=== PATIENT | female | born 1960 | race Caucasian/White ===

== ENCOUNTER 2023-08-01 12:07 | Outpatient (REF) | payer BC, SELFPAY ==
[2023-08-01 13:57] LABS: SARS-CoV-2 Ag NEGATIVE (NEGATIVE)
[2023-08-01 15:14] LABS: SARS-CoV-2 NAA DETECTED (NOT DETECTE)
== END 2023-08-01 12:08 | disposition home or self-care (01) ==
LOC: LAB 12:07
PROVIDERS: PCP Internal Medicine; Visit Provider Internal Medicine
DX: Z20.822 Contact with and (suspected) exposure to COVID-19 (principal)
CPT/HCPCS: 87635; 87811; U0003

== ENCOUNTER 2023-09-15 07:21 | Outpatient (OUT) | payer BC, SELFPAY ==
[2023-09-15 07:47] LABS: Basophils Percent Auto 0.9 % (0.2-2.0); Eosinophils Absolute Auto 0.2 10^3/uL (0.0-0.7); Eosinophils Percent Auto 7.4 % (0.9-7.0); Hematocrit 35.3 % (36.0-48.0); Hemoglobin 10.1 g/dL (12.0-16.0); Immature Granulocytes Abs Auto 0.01 10^3/uL (0.00-0.03); Immature Granulocytes Pct Auto 0.3 % (0.0-0.5); Lymphocytes Absolute Auto 1.1 10^3/uL (1.2-3.8); Lymphocytes Percent Auto 33.1 % (20.5-60.0); Mean Corpuscular HGB Conc 28.6 g/dL (29.9-35.2); Mean Corpuscular Volume 73.4 fL (81.0-99.0); Mean Platelet Volume 9.6 fL (9.5-13.5); Monocytes Absolute Auto 0.4 10^3/uL (0.3-0.8); Monocytes Percent Auto 12.9 % (1.7-12.0); Neutrophils Absolute Auto 1.5 10^3/uL (1.4-6.5); Neutrophils Percent Auto 45.4 % (43.0-75.0); Platelet Count 311 10^3/uL (150-450); Red Blood Count 4.81 10^6/uL (4.20-5.40); White Blood Count 3.3 10^3/uL (4.0-11.0)
[2023-09-15 08:00] LABS: Estimated Average Glucose 123 mg/dL; Glycohemoglobin A1C 5.9 % (4.5-6.2)
[2023-09-15 08:24] LABS: Percent Iron Saturation 4.6 %
[2023-09-15 08:32] LABS: Alanine Aminotransferase 100 U/L (14-59); Albumin Globulin Ratio 0.9; Albumin Level 3.1 g/dL (3.4-5.0); Alkaline Phosphatase 246 U/L (46-116); Anion Gap 10.4; Aspartate Amino Transferase 62 U/L (15-37); BUN Creatinine Ratio 19.4; Bilirubin Total 0.2 mg/dL (0.2-1.0); Calcium 9.1 mg/dL (8.5-10.1); Carbon Dioxide 29.8 mmol/L (21.0-32.0); Chloride 106 mmol/L (98-107); Chol HDL Ratio 2.5; Cholesterol 170 mg/dL (<=200); Estimated GFR (African America >60 (>=60); Estimated GFR (Non-African Ame >60 (>=60); Globulin 3.6 g/dL; Glucose 128 mg/dL (74-106); HDL Cholesterol 68 mg/dL (40-60); Potassium 4.2 mmol/L (3.5-5.1); Sodium 142 mmol/L (136-145); Thyroid Stimulating Hormone <0.007 uIU/mL (0.358-3.740); Total Protein 6.7 g/dL (6.4-8.2); Triglycerides 36 mg/dL (<=150); VLDL CHOLESTEROL 7.2 mg/dL
[2023-09-16 14:04] LABS: Free T4 1.91 ng/dL (0.76-1.46)
[2023-09-17 11:10] LABS: Triiodothyronine (T3) 239 ng/dL (71-180)
== END 2023-09-15 07:22 | disposition home or self-care (01) ==
LOC: LAB 07:21
PROVIDERS: PCP Internal Medicine; Visit Provider Internal Medicine
DX: Z00.00 Encounter for general adult medical examination without abnormal findings (principal); D50.0 Iron deficiency anemia secondary to blood loss (chronic); R79.89 Other specified abnormal findings of blood chemistry
CPT/HCPCS: 36415; 80053; 80061; 82728; 83036; 83540; 83550; 84439; 84443; 84480; 85025

== ENCOUNTER 2023-10-16 07:27 | Outpatient (RCR) | payer BC, SELFPAY ==
[2023-10-14 16:33] LABS: Lactate Dehydrogenase 236 U/L (81-234)
[2023-10-16] MEDS: FERUMOXYTOL 510 MG in 0.9 % SODIUM CHLORIDE 100 ML 351 MG IV (08:28)
[2023-10-16 08:34] VITALS: BP 158/88; PULSE 91; RESP 16; TEMP 36.6; O2SAT 96
--- NOTE | 2023-10-16 08:37 | PC.NURSE ---
0805: Pt. to [facility] for scheduled infusion. Seated in recliner. VSS. Denies c/o n/v, pain or dyspnea. #22 gauge IV initiated to right hand on first attempt without difficulty. Flushes easily with no edema or c/o pain. Pt. drinking water. Denies needs. 0828:IV Feraheme initiated at this time. Pt. without c/o.
--- NOTE | 2023-10-16 08:57 | PC.NURSE ---
0850: Rosalba completed without s&s of adverse reaction. IV d/c'd, pressure to site. 0853: D/c'd amb. to home.
[2023-10-16 14:09] LABS: ANA Direct Negative (Negative)
[2023-10-17 07:08] LABS: Immunoglobulin A, Qn, Serum 86 mg/dL (87-352); Immunoglobulin G, Qn, Serum 950 mg/dL (586-1602); Immunoglobulin M, Qn, Serum 171 mg/dL (26-217)
== END 2023-10-16 23:59 | disposition home or self-care (01) ==
LOC: INF 07:27
PROVIDERS: PCP Internal Medicine; Visit Provider Internal Medicine Hematology & Oncology
DX: D72.819 Decreased white blood cell count, unspecified (principal); D50.9 Iron deficiency anemia, unspecified; K90.9 Intestinal malabsorption, unspecified; D64.9 Anemia, unspecified
CPT/HCPCS: 36415; 83615; 86038; 96365; G0463; Q0138

== ENCOUNTER 2023-10-23 07:34 | Outpatient (RCR) | payer BC, SELFPAY ==
[2023-10-23 08:14] VITALS: BP 174/91; PULSE 88; RESP 16; TEMP 36.4; O2SAT 96
--- NOTE | 2023-10-23 08:17 | PC.NURSE ---
0800: Pt. to [facility] amb. for iron infusion. Seated in recliner. VSS. #24 gauge IV initiated to right hand on first attempt. Flushes easily without redness or edema. Pt. tolerated without c/o. Water provided. Denies needs.
[2023-10-23] MEDS: FERUMOXYTOL 510 MG in 0.9 % SODIUM CHLORIDE 100 ML 351 MG IV (08:19)
--- NOTE | 2023-10-23 08:28 | PC.NURSE ---
0819: IV Rosalba initiated at this time. Given snack. Denies needs.
--- NOTE | 2023-10-23 08:47 | PC.NURSE ---
0845: IV Feraheme completed without s&s of adverse reaction. IV d/c'd pressure to site. D/c'd amb to home.
== END 2023-11-05 11:15 | disposition home or self-care (01) ==
LOC: INF 07:34
PROVIDERS: PCP Internal Medicine; Visit Provider Internal Medicine Hematology & Oncology
DX: D72.819 Decreased white blood cell count, unspecified (principal); D64.9 Anemia, unspecified; D50.9 Iron deficiency anemia, unspecified; K90.9 Intestinal malabsorption, unspecified
CPT/HCPCS: 96365; Q0138

== ENCOUNTER 2023-12-16 10:32 | Outpatient (OUT) | payer BC, SELFPAY ==
--- OUTSIDE RECORDS SUMMARY | 2023-12-16 10:37 | XMS_ITS | CCD ---
Author Name Unknown Address [address] [place] [address] Organization [facility] Care Team Providers Care Logistics System Engineer Name Role Phone Roland Serrano DO Primary Care Provider ROLAND SERRANO Primary Care Unavailable MAYRA MICHEL Attending Unavailable ROLAND SERRANO Primary Care Unavailable ROBBY CANALES Attending Unavailable Roland Serrano DO Primary Care Provider Nilesh RN, Kizzy Unavailable Unavailable Roland Serrano DO Primary Care Provider Nilesh RN, Kizzy Unavailable Roland Serrano DO Primary Care Provider Nilesh RN, Kizzy Unavailable Roland Serrano Unavailable Olya Gann Unavailable MAGGIE, DR YOUSSEF Primary Care Unavailable MAGGIE, DR YOUSSEF Admitting Unavailable MAGGIE, DR YOUSSEF Attending Unavailable BALL, DR YOUSSEF Consulting Unavailable SALOMON JACOME Attending Unavailable MAGGIE, DR YOUSSEF Primary Care Unavailable SALOMON JACOME Consulting Unavailable SALOMON JACOME Admitting Unavailable MAGGIE, DR YOUSSEF Primary Care Unavailable AYAZ, SALOMON Attending Unavailable AYAZ, SALOMON Consulting Unavailable SALOMON JACOME Admitting Unavailable MAGGIE, DR YOUSSEF Primary Care Unavailable MAGGIE, DR YOUSSEF Admitting Unavailable MAGGIE, DR YOUSSEF Attending Unavailable BALL, DR YOUSSEF Consulting Unavailable ZIEBER, DR HENRY Lr Consulting Unavailable SALOMON JACOME Attending Unavailable MAGGIE, DR YOUSSEF Primary Care Unavailable AYAZ, SALOMON Consulting Unavailable SALOMON JACOME Admitting Unavailable MAGGIE, DR YOUSSEF Admitting Unavailable BALL, DR YOUSSEF Attending Unavailable BALL, DR YOUSSEF Consulting Unavailable BALL, DR YOUSSEF Primary Care Unavailable MAGGIE, DR YOUSSEF Primary Care Unavailable MAGGIE, DR YOUSSEF Admitting Unavailable BALL, DR YOUSSEF Attending Unavailable BALL, DR YOUSSEF Consulting Unavailable WEST, DR JACOB Parrish Consulting Unavailable Nilesh RN, Kizzy Unavailable BALL, ROLAND E Primary Care Unavailable LESSA CISNEROS JAY, MIKE Referring Unava ilable FELTER LEIGH Philippe Attending Unavailable BALL, ROLAND E Primary Care Unavailable CARY, SOUTH Philippe Attending Unavailable BALL, ROLAND E Primary Care Unavailable BALL, ROLAND E Primary Care Unavailable CARY, SOUTH Philippe Referring Unavailable BALL, ROLAND E Primary Care Unavailable BALL, ROLAND E Primary Care Unavailable LESSA CISNEROS JAY, MIKE Referring Unava ilable BALL, ROLAND E Primary Care Unavailable CARY, SOUTH Philippe Referring Unavailable ANGELIAELDER BARAJAS Attending Unavailable BALL, ROLAND E Primary Care Unavailable CARY, SOUTH Philippe Referring Unavailable BALL, ROLAND E Primary Care Unavailable RACHELHENRY Attending Unavailable BALL, ROLAND E Primary Care Unavailable LAMBGURPREET ESTRADA Referring Unavailable CARY, SOUTH Philippe Attending Unavailable BALL, ROLAND E Primary Care Unavailable PEDRO RODARTE Referring Unavailable BALL, ROLAND E Primary Care Unavailable CARY, SOUTH Philippe Attending Unavailable CARY, SOUTH Philippe Admitting Unavailable BALL, ROLAND E Primary Care Unavailable LESSA CISNEROS JAY, MIKE Referring Unava ilable BALL, ROLAND E Primary Care Unavailable LESSA CISNEROS JAY, MIKE Referring Unava ilable BALL, ROLAND E Primary Care Unavailable LESSA CSINEROS JAY, MIKE Referring Unava ilable BALL, ROLAND E Primary Care Unavailable HEIDI MENARD Attending Unavailab le BALL, ROLAND E Primary Care Unavailable BALL, ROLAND E Primary Care Unavailable CARY, SOUTH Philippe Referring Unavailable BALL, ROLAND E Primary Care Unavailable RACHELHENRY Lr Referring Unavailable BALL, ROLAND E Primary Care Unavailable MODERNESTO DIAZ Referring Unavailable JUAN MANUEL MEDINA Attending Unavailable BALL, ROLAND E Primary Care Unavailable SASIDSARAH MACDONALDHEIDI Attending Unavailab le Allergies Allergy Classification Reported Allergen(s) Allergy Type Date of Onset Reaction(s) Facility (6 sources) patient allergy list reviewed by nurse or physicia Propensity to adverse reactions 8 Comment:Done [facility] Other (6 sources) Allergies Reconciled Propensity to adverse reactions Unknown [facility] Other Medications Current Medications Medication Drug Class(es) Dates Sig (Normalized) Sig (Original) acetaminophen 325 mg / HYDROcodone bitartrate 5 mg oral tablet (8 sources) Opioid Agonist take 1-2 tablets by mouth every six hours as needed HYDROcodone-Aceta minophen 5-325 MG 1-2 tablet as needed Oral every 6 hrs for 7 days Active [id number] 200 actuat albuterol 0.09 mg/actuat metered dose inhaler (20 sources) beta2-Adrenergic Agonist Start: 04-23-2023 take 2 puff(s) by inhalation every four hours as needed for cough Albuterol Sulfate HFA 108 (90 Base) MCG/ACT 2 puffs Inhalation every 4 hrs as needed for cough or SOB for 30 days Apr, Active Start: 04-23-2023 take 2 puff(s) by in halation every four hours as needed for cough albuterol HFA (PROVENTIL HFA, VENTOLIN HFA) 90 mcg/actuation inhaler INHALE 2 PUFFS EVERY 4 HOURS NEEDED FOR COUGH OR SHORTNESS OF BREATH FOR 30 DAYS 06/17/2023 Active Start: 01-20-2023 take 2 puff(s) by in halation every six hours as needed for cough Albuterol Sulfate HFA 108 (90 Base) MCG/ACT 2 puffs Inhalation every 6 hours as needed for cough and SOB for 30 days Jan, Active Start: 01-20-2023 take 2 puff(s) by in halation every four hours as needed Albuterol Sulfate HFA 108 (90 Base) MCG/ACT 2 puffs as needed Inhalation every 4 hrs Jan, Active Comment on above: INHALE 2 PUFFS EVERY 4 HOURS NEEDED FOR COUGH OR SHORTNESS OF BREATH FOR 30 DAYS amoxicillin 500 mg oral capsule (9 sources) Penicillin-class Antibacterial Start: 05-13-20 take 4 capsules by mouth every hour Amoxicillin 500 MG 4 capsules Orally 1 hour prior to dental appt for 1 day Apr, Active Start: 01-20-2023 take 1 tablet by corinne th every twelve hours Amoxicillin 875 MG 1 tablet Orally every 12 hrs for 7 days Jan, Active azithromycin 250 mg oral tablet (20 sources) Macrolide Antimicrobial Start: 08-04-2023 Azithromycin 250 MG as directed Orally daily for 5 days Jul, Active Start: 01-24-2023 Azithromycin 2 50 MG as directed Orally daily for 5 days Jan, Active Calcium (20 sources) Phosphate Binder, Calcium Start: 08-14-2018 Calcium 1 tab Oral Jul, Active diclofenac sodium 0.01 mg/mg topical gel (10 sources) Nonsteroidal Anti-inflammatory Drug Start: 08-11-2020 Voltaren 1 % as directed Transdermal BID for 30 days Jul, Active dicyclomine hydrochloride 10 mg oral capsule (20 sources) Anticholinergic Start: 07-10-2021 take 1 capsule by mouth at bedtime as needed Dicyclomine HCl 10 MG 1 capsule Orally before meals and HS, as needed for 30 days May, Active take 1 capsule by mo uth four times daily before mealtime dicyclomine (BENTYL) 10 MG capsule Take 10 mg by mouth 4 times daily (before meals and nightly) 0 Active Comment on above: Take 1 capsule by mo uth before meals and at bedtime. As needed. Estradiol-Norethindr one Acet 0.05-0.14 MG/DAY (10 sources) Start: 018 apply 0.05-0.14 mg transdermal route once daily Estradiol-Norethin drone Acet 0.05-0.14 MG/DAY 1 patch to skin Transdermal Two times a Week Jul, Active Estroven (10 sources) Start: 018 Estroven Jul, Active fluticasone propionate 0.05 mg/actuat metered dose nasal spray (8 sources) Corticosteroid Start: take 1 spray(s) nasal route once daily Fluticasone Propionate 50 MCG/ACT 1 spray in each nostril Nasally Once a day for 21 days Jan, Active 60 actuat fluticasone propionate 0.25 mg/actuat / salmeterol 0.05 mg/actuat dry powder inhaler (20 sources) Corticosteroid, beta2-Adrenergic Agonist Start: 023 take 1 puff(s) by inhalation twice daily Fluticasone-Salmet adriana 250-50 MCG/ACT 1 puff Inhalation Twice a day March, Active Comment on above: INHALE 1 PUFF TWICE A DAY FOR 30 DAYS formaldehyde 370 mg/ml topical solution (1 source) Standardized Chemical Allergen Start: 023 End: 023 formaldehyde, bulk, 37 % soln 240 mL as directed for 1 day. 240 mL 0 09/02/2023 09/03/2023 Active Comment on above: 240 mL as directed f or 1 day. ibuprofen 800 mg oral tablet (20 sources) Nonsteroidal Anti-inflammatory Drug Start: take 1 tablet by mouth three times daily at mealtime as needed Ibuprofen 800 MG 1 tablet with food or milk as needed Orally Three times a day for 30 days Jul, Active Start: 08-11-2020 ibuprofen (MOT RIN) 800 mg tablet Take by mouth q 8 HR. 0 08/11/2020 Active Comment on above: Take by mouth q 8 HR . lidocaine 0.05 mg/mg medicated patch (10 sources) Antiarrhythmic, Amide Local Anesthetic Start: 2019 Lidocaine 5 % 1 patch remove after 12 hours Externally Once a day Jul, Active meloxicam 15 mg oral tablet (1 source) Nonsteroidal Anti-inflammatory Drug Start: 2020 take 1 tablet by mouth once daily meloxicam (MOBIC) 15 MG tablet Take 1 tablet by mouth daily 0 06/13/2021 Active methIMAzole 10 mg oral tablet (8 sources) Thyroid Hormone Synthesis Inhibitor take 1 tablet by mouth every twenty-four hours methIMAzole 10 MG 1 tablet Orally Once a day Active methylPREDNISolone 4 mg oral tablet (8 sources) Corticosteroid Start: 2022 methylPREDNISolone 4 MG as directed Orally Once a day for 6 days Jan, Active Multivitamin Adult - (20 sources) Start: 2017 Multivitamin Adult - Orally Jul, Active mupirocin 0.02 mg/mg topical ointment (6 sources) RNA Synthetase Inhibitor Antibacterial Start: 2022 Mupirocin 2 % 1 application Externally Twice a day for 10 days Feb, Active ondansetron 8 mg oral tablet (1 source) Serotonin-3 Receptor Antagonist Start: 2020 ondansetron (ZOFRAN) 8 MG tablet Take 8 mg by mouth 0 06/21/2021 Active perflutren lipid microspheres 1.3 mL in NaCl (PF) 0.9% 10 mL injection (DEFINITY) (15 sources) Start: 2022 End: 2023 perflutren lipid microspheres 1.3 mL in NaCl (PF) 0.9% 10 mL injection (DEFINITY) Probiotic - (20 sources) Start: 2017 Probiotic - Orally Jul, Active 125 ml sodium chloride 9 mg/ml prefilled syringe (16 sources) Start: 2022 End: 2023 sodium chloride 0.9 % (flush) 10 mL (BD POSIFLUSH) Start: 07-07-2021 End: 07-07-2021 0.9 % sodium chloride bolus sucralfate enema 4 g/40 mL (CPD) (2 sources) Start: 07-04-2023 End: 07-18-2023 sucralfate enema 4 g/40 mL (CPD) 20 mL by RECTAL route twice daily for 14 days. 560 mL 0 07/04/2023 07/18/2023 Active Comment on above: 20 mL by RECTAL rout e twice daily for 14 days. tiZANidine 4 mg oral tablet (1 source) Central alpha-2 Adrenergic Agonist Start: 06-13-2021 take 1 tablet by mouth at bedtime as needed tiZANidine (ZANAFLEX) 4 MG tablet Take 1 tablet by mouth At bedtime as needed 0 06/13/2021 Active 24 hr venlafaxine 150 mg extended release oral capsule (20 sources) Serotonin and Norepinephrine Reuptake Inhibitor Start: 06-23-2019 take 1 capsule by mouth every twenty-four hours Venlafaxine HCl ER 150 MG 1 capsule with food Orally Once a day Jun, Active take 1 tablet by mouth once venl afaxine (EFFEXOR) 25 MG tablet Take 25 mg by mouth once 0 Active Comment on above: Take 150 mg by mouth daily at bedtime. Vitamin B Complex (20 sources) Start: 08-14-2018 Vitamin B Comp hayley - Orally Jul, Active Completed/Discontinued Medications Medication Drug Class(es) Dates Sig (Normalized) Sig (Original) acetaminophen 500 mg oral tablet (2 sources) Start: 09-02-2023 take 500-1000 mg by mouth every six hours as needed acetaminophen (TYLENOL) 500 mg tablet Take 1-2 tablets by mouth every 6 hours as needed for pain. Do not exceed 3-4g/24hr. 0 09/02/2023 Active Comment on above: Take 1-2 tablets by mouth every 6 hours as needed for pain. Do not exceed 3-4g/24hr. ascorbic acid 500 mg oral tablet (20 sources) Vitamin C take 1 tablet by mouth once daily ascorbic acid, vitamin C, (VITAMIN C) 500 mg tablet Take 500 mg by mouth once daily. 0 Active Comment on above: Take 500 mg by mouth once daily. B COMPLEX VITAMINS CAP (20 sources) Start: 03-31-2008 B COMPLEX VITAMINS CAP Take one(1) capsule daily. 0 03/31/2008 Active Comment on above: Take one(1) capsule daily. CALCIUM CARBONATE-VIT D3-MINERALS 600 MG-400 UNIT TAB (20 sources) Start: 07-28-2019 take 1 tablet by mouth twice daily CALCIUM CARBONATE-VIT D3-MINERALS 600 MG-400 UNIT TAB Take 1 tablet by mouth two times a day. 0 07/28/2019 Active Start: 07-28-2019 take 1 tablet by corinne th twice daily CALCIUM CARBONATE-VIT D3-MINERALS 600 MG-400 UNIT TAB Take 1 tablet by mouth twice daily. 0 07/28/2019 Active Comment on above: Take 1 tablet by corinne th twice daily. Take 1 tablet by corinne th two times a day. carvedilol 25 mg oral tablet (20 sources) alpha-Adrenergic Alisa, beta-Adrenergic Alisa Start: 06-07-20 take 1 tablet by mouth twice daily carvedilol (COREG) 25 mg tablet Take 1 tablet by mouth twice daily. 0 06/07/2021 Active Comment on above: Take 1 tablet by corinne th twice daily. enteric contrast (will be provided with radiology test) (20 sources) Start: 05-29-20 enteric contrast (will be provided with radiology test) For CT CHESTABD/PEL W IVCON Routine order Administer, As Directed One Time Only, via Oral, Rectal, both Oral and Rectal, Enteric Tube, Stoma or Indwelling Catheter, Enteric Contrast as designated per enteric contrast guidelines 1 Each 0 05/29/2021 Active Comment on above: For CT CHESTABD/PEL W IVCON Routine order Administer, As Directed One Time Only, via Oral, Rectal, both Oral and Rectal, Enteric Tube, Stoma or Indwelling Catheter, Enteric Contrast as designated per enteric contrast guidelines iv contrast (will be provided with radiology test) (20 sources) Start: 05-29-20 iv contrast (will be provided with radiology test) CT Chest ABD/PEL-Inject, intravenously, once for 1 dose.No IV access, insert saline lock prior to the beginning of sedation, infusion, injection of imaging exam. Discontinue saline lock post exam. If Pt. has a central line or IVAD, may access for administration according to line specific nursing protocol. Once exam is complete flush line and de-access according to line specific nursing protocol in the CT contrast administration guidelines link. 1 Each 0 05/29/2021 Active Comment on above: CT Chest ABD/PEL-Inj ect, intravenously, once for 1 dose.No IV access, insert saline lock prior to the beginning of sedation, infusion, injection of imaging exam. Discontinue saline lock post exam. If Pt. has a central line or IVAD, may access for administration according to line specific nursing protocol. Once exam is complete flush line and de-access according to line specific nursing protocol in the CT contrast administration guidelines link. Lactobac no.41/Bifidobact no.7 (PROBIOTIC-10 ORAL) (20 sources) Lactobac no.41/Bifidobact no.7 (PROBIOTIC-10 ORAL) Take by mouth once daily. 0 Active Comment on above: Take by mouth once d aily. meclizine hydrochloride 12.5 mg oral tablet (1 source) Antiemetic Start: 07-07-20 End: 07-07-20 meclizine (ANTIVERT) tablet 25 mg MULTIVITAMIN TAB (20 sources) Start: 03-31-20 MULTIVITAMIN TAB Take by mouth. 0 03/31/2008 Active Start: 03-31-2008 MULTIVITAMIN T AB Take one(1) tablet daily. 0 03/31/2008 Active Comment on above: Take one(1) tablet d aily. Take by mouth. [id number] OIL-L.CASEI ORAL (20 sources) [id number] SH OIL-L.CASEI ORAL Take by mouth once daily. 0 Active Comment on above: Take by mouth once d aily. polyethylene glycol 3350 176468 mg / potassium chloride 2970 mg / sodium bicarbonate 6740 mg / sodium chloride 5860 mg / sodium sulfate 47142 mg powder for oral solution (1 source) Osmotic Laxative Start: 08-07-2022 End: 08-07-2022 peg 3350-Electrolytes (GOLYTELY) 236-22.74-6.74 -5.86 gram suspension Indications: Rectal bleeding Take 4,000 mL by mouth one time only for 1 dose. Refer to printed prep instructions from your provider. 4000 mL 0 08/07/2022 08/07/2022 Comment on above: Take 4,000 mL by corinne th one time only for 1 dose. Refer to printed prep instructions from your provider. Triamcinolone (20 sources) Corticosteroid Start: 02-01-2020 Kenalog -40 mg Jan, 40 mg Start: 03-10-2019 Kenalog -40 mg Feb, 40 mg Start: 08-14-2018 Kenalog -40 mg Jul, 40 mg Turmeric extract (20 sources) take 1000 mg by mout h once daily TURMERIC ORAL Take 1,000 mg by mouth once daily. 0 Active Comment on above: Take 1,000 mg by corinne th once daily. Problems Active Problems Problem Classification Problem Date Documented Da te Episodic/Chronic Acute bronchitis (1 source) Acute bronchitis due to other specified organisms Episodic Anal and rectal conditions (20 sources) Radiation proctitis; Translations: [Radiation proctitis] Onset: 07-14-2023 Episodic Anxiety disorders (20 sources) Generalized anxiety disorder; Translations: [Generalized anxiety disorder] Onset: 02-05-2017 Chronic Asthma (20 sources) Mild intermittent asthma; Translations: [Mild intermittent asthma, uncomplicated] Chronic Biliary tract disease (6 sources) Cholestasis; Translations: [Obstruction of bile duct] Chronic Cancer of uterus (20 sources) Endometrial carcinoma; Translations: [Malignant neoplasm of endometrium] Onset: 11-17-2018 Chronic Cancer; other and unspecified primary (4 sources) H/O: neoplasm; Translations: [Personal history of other benign neoplasm] Episodic Cardiac dysrhythmias (4 sources) Palpitations; Translations: [Palpitations] Episodic Chronic obstructive pulmonary disease and bronchiectasis (2 sources) Bronchitis, not specified as acute or chronic Episodic Conditions associated with dizziness or vertigo (1 source) Dizziness; Translations: [Dizziness and giddiness] Episodic Deficiency and other anemia (13 sources) Iron deficiency anemia due to blood loss; Translations: [Iron deficiency anemia secondary to blood loss (chronic)] 08-29-2023 Chronic Deficiency and other anemia (4 sources) 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 Deficiency and other anemia (1 source) Anemia, unspecified; Translations: [Anemia, unspecified] Episodic Deficiency and other anemia (4 sources) Anemia; Translations: [Anemia, unspecified] Onset: 09-02-2023 09-02-2023 Episodic Esophageal disorders (2 sources) Gastro-esophageal reflux disease with esophagitis; Translations: [Gastro-esophageal reflux disease with esophagitis, without bleeding] Chronic Esophageal disorders (2 sources) Esophageal disorders; Translations: [Gastro-esophageal reflux disease with esophagitis, without bleeding] Essential hypertension (20 sources) Hypertensive disorder; Translations: [Essential (primary) hypertension] Onset: 07-08-2019 07-08-2019 Chronic Fluid and electrolyte disorders (1 source) Dehydration; Translations: [Dehydration] Episodic Genitourinary congenital anomalies (2 sources) Vaginal problem; Translations: [Other congenital malformations of vagina] Chronic Menopausal disorders (6 sources) Atrophy of vagina; Translations: [Postmenopausal atrophic vaginitis] Chronic Osteoarthritis (20 sources) Localized, primary osteoarthritis of the wrist; Translations: [Primary osteoarthritis, left wrist] Onset: 03-04-2018 Chronic Other acquired deformities (1 source) Contracture, left ankle; Translations: [Contracture, left ankle] Chronic Other acquired deformities (3 sources) Joint contracture of the ankle and/or foot; Translations: [Contracture, left ankle] Chronic Other and ill-defined heart disease (11 sources) Left cardiac ventricular dilatation; Translations: [Cardiomegaly] Chronic Other and unspecified benign neoplasm (20 sources) Prolactinoma; 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] 09-20-2021 Episodic Other and unspecified benign neoplasm (1 source) Benign lipomatous neoplasm of skin and subcutaneous tissue of left arm; Translations: [Benign lipomatous neoplasm of skin and subcutaneous tissue of left arm] Episodic Other and unspecified benign neoplasm (3 sources) Lipoma of upper arm; Translations: [Benign lipomatous neoplasm of skin and subcutaneous tissue of left arm] Episodic Other connective tissue disease (18 sources) History of total hip arthroplasty; Translations: [Presence of right artificial hip joint] Chronic Other connective tissue disease (1 source) Presence of right artificial hip joint Chronic Other connective tissue disease (4 sources) Plantar fascial fibromatosis; Translations: [Plantar fascial fibromatosis] Episodic Other diseases of veins and lymphatics (17 sources) Peripheral venous insufficiency; Translations: [Venous insufficiency (chronic) (peripheral)] Episodic Other diseases of veins and lymphatics (2 sources) Venous insufficiency (chronic) (peripheral) Episodic Other gastrointestinal disorders (1 source) Irritable bowel syndrome with constipation; Translations: [Irritable bowel syndrome with constipation] Chronic Other gastrointestinal disorders (1 source) Mixed irritable bowel syndrome; Translations: [Mixed irritable bowel syndrome] Onset: 02-05-2017 Chronic Other gastrointestinal disorders (4 sources) Irritable bowel syndrome with diarrhea; Translations: [Irritable bowel syndrome with diarrhea] Chronic Other gastrointestinal disorders (3 sources) Irritable bowel syndrome characterized by constipation; Translations: [Irritable bowel syndrome with constipation] Chronic Other gastrointestinal disorders (3 sources) Irritable bowel syndrome; Translations: [Mixed irritable bowel syndrome] Onset: 02-05-2017 Chronic Other liver diseases (1 source) Abnormal levels of other serum enzymes Episodic Other lower respiratory disease (5 sources) Interstitial lung disease; Translations: [Interstitial pulmonary disease, unspecified] 06-27-2023 Chronic Other lower respiratory disease (3 sources) Interstitial pulmonary disease, unspecified; Translations: [Interstitial pulmonary disease (HCC)] Onset: 08-22-2023 Chronic Other lower respiratory disease (5 sources) Shortness of breath; Translations: [SHORTNESS OF BREATH] Onset: 03-21-2023 Episodic Other lower respiratory disease (5 sources) Other forms of dyspnea; Translations: [OTHER FORMS OF DYSPNEA] Onset: 03-10-2023 Episodic Other lower respiratory disease (3 sources) Dyspnea; Translations: [Dyspnea, unspecified] 06-27-2023 Episodic Other nervous system disorders (4 sources) Carpal tunnel syndrome; Translations: [Carpal tunnel syndrome] Onset: 06-17-2016 Chronic Other nervous system disorders (1 source) Other acute postprocedural pain; Translations: [Postoperative pain] Onset: 09-02-2023 Episodic Other screening for suspected conditions (not mental disorders or infectious disease) (12 sources) Encounter for screening mammogram for malignant neoplasm of breast; Translations: [Encounter for screening for malignant neoplasm of colon] Onset: 11-23-2014 Episodic Other skin disorders (1 source) Finding of lesion; Translations: [Localized swelling, mass and lump, unspecified] 08-29-2023 Episodic Other upper respiratory infections (16 sources) Acute pharyngitis, unspecified; Translations: [Acute maxillary sinusitis, unspecified] Onset: 11-24-2015 Episodic Otitis media and related conditions (1 source) Otitis media, unspecified, bilateral Episodic [place]-; endo-; and myocarditis; cardiomyopathy (except that caused by tuberculosis or sexually transmitted disease) (16 sources) Dilated cardiomyopathy; Translations: [Dilated cardiomyopathy] Chronic Pulmonary heart disease (15 sources) Secondary pulmonary hypertension; Translations: [Other secondary pulmonary hypertension] Onset: 08-29-2023 06-27-2023 Chronic Residual codes; unclassified (4 sources) Preventive procedure; Translations: [Encounter for other specified prophylactic measures] Episodic Thyroid disorders (10 sources) Autoimmune thyroiditis; Translations: [Autoimmune thyroiditis] Chronic Unclassified (1 source) SUBACUTE COUGH; Translations: [SUBACUTE COUGH] Onset: 03-27-2023 Unclassified (3 sources) CONTACT W/AND (SUSP) EXPOS COVID-19; Translations: [CONTACT W/AND (SUSP) EXPOS COVID-19] Onset: 01-21-2023 Unclassified (1 source) Nonspecific elevation of levels of transaminase or lactic acid dehydrogenase (LDH); Translations: [Nonspecific elevation of levels of transaminase or lactic acid dehydrogenase (LDH)] Onset: 09-12-2018 Past or Other Problems Problem Classification Problem Date Documented Da te Episodic/Chronic Abdominal pain (20 sources) Abdominal pain; Translations: [Unspecified abdominal pain] Onset: 03-31-2008 03-31-2008 Episodic Bacterial infection; unspecified site (4 sources) Bacterial infectious disease; Translations: [Bacterial infection, unspecified, in conditions classified elsewhere and of unspecified site] Onset: 12-05-2017 Episodic Diabetes mellitus without complication (4 sources) Impaired fasting glucose; Translations: [Impaired fasting glycemia] Onset: 06-11-2019 Episodic Gastrointestinal hemorrhage (6 sources) Rectal hemorrhage; Translations: [Hemorrhage of anus and rectum] Onset: 01-03-2023 Episodic Malaise and fatigue (4 sources) Malaise and fatigue; Translations: [Other malaise and fatigue] Onset: 03-04-2018 Episodic Nonspecific chest pain (4 sources) Chest pain; Translations: [Other chest pain] Resolved: 10-17-2021 Episodic Other and unspecified benign neoplasm (4 sources) Lipoma (clinical); Translations: [Benign lipomatous neoplasm, unspecified] Onset: 06-11-2019 Episodic Other and unspecified benign neoplasm (1 source) Benign neoplasm of pituitary gland; 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] Onset: 06-11-2019 Episodic Other and unspecified benign neoplasm (3 sources) Benign neoplasm of pituitary gland; 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] Onset: 06-11-2019 Episodic Other connective tissue disease (1 source) Pain in left foot; Translations: [Pain in left foot] Resolved: 10-17-2021 Episodic Other connective tissue disease (1 source) Prepatellar bursitis, left knee; Translations: [Prepatellar bursitis, left knee] Onset: 06-17-2016 Episodic Other connective tissue disease (3 sources) Pain in left foot; Translations: [Pain in left foot] Resolved: 10-17-2021 Episodic Other connective tissue disease (3 sources) Prepatellar bursitis of left knee; Translations: [Prepatellar bursitis, left knee] Onset: 06-17-2016 Episodic Other female genital disorders (4 sources) Noninflammatory disorder of the vagina; Translations: [Other specified noninflammatory disorders of vagina] Resolved: 10-17-2021 Episodic Other liver diseases (3 sources) Elevated levels of transaminase & lactic acid dehydrogenase; Translations: [Nonspecific elevation of levels of transaminase or lactic acid dehydrogenase (LDH)] Onset: 09-12-2018 Episodic Other lower respiratory disease (1 source) Dyspnea, unspecified; Translations: [Dyspnea, unspecified type] Onset: 06-27-2023 Episodic Other nutritional; endocrine; and metabolic disorders (20 sources) H/O: thyroid disorder; Translations: [Personal history of other endocrine, nutritional and metabolic disease] Onset: 07-28-2019 07-28-2019 Episodic Other upper respiratory disease (4 sources) Chronic rhinitis; Translations: [Chronic rhinitis] Resolved: 10-17-2021 Chronic Unclassified (1 source) Subacute cough R05.2 Unclassified (1 source) CONTACT W/AND (SUSP) EXPOS COVID-19; Translations: [CONTACT W/AND (SUSP) EXPOS COVID-19] Onset: 01-20-2023 Unclassified (1 source) Contact with and (suspected) exposure to COVID-19; Translations: [Contact with and (suspected) exposure to COVID-19] Resolved: 10-17-2021 Unclassified (3 sources) Exposure to acute respiratory syndrome coronavirus 2; Translations: [Contact with and (suspected) exposure to COVID-19] Resolved: 10-17-2021 Viral infection (4 sources) Viral disease; Translations: [Unspecified viral infection, in conditions classified elsewhere and of unspecified site] Onset: 12-14-2018 Episodic Viral infection (1 source) COVID-19 Results Test Name Value Interpretation Reference Range Facility CNOVon 09-29-2023 CNOV Office Visit ([facility] ) CKISABEL L ([id number]) 1960 F Date Time Provider Department 09/29/23 10:20 AM SOUTH SABA During your visit today, we recorded the following information about you: Weight Height 62.1 kg 1.676 m South Saba DO 10/07/2023 2:04 PM Signed COLORECTAL SURGERY Follow-up September 23, 2023 Chief complaint: postop follow up HPI: Isabel Waddell is a 63 year old female with 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 She recently underwent and EUA with topical formalin in OR on 09/02/23. She is here post operatively. 09/02/23 OPERATION PERFORMED: Flexible sigmoidoscopy, exam under anesthesia, topical application of formalin to the rectum for treatment of radiation proctitis Physical Exam: Ht 167.6 cm (5' 6 ) Wt 62.1 kg (137 lb) BMI 22.11 kg/m? General - awake, alert, no acute distress Abdominal - soft, non tender, non distended Anorectal: deferred Assessment Medical Decision Making: Assessment AND Diagnosis: Isabel Waddell is a 63 year old female with history of endometrial cancer s/p radiation c/b radiation proctitis. Feeling much better after EUA with topical formalin in OR on 09/02/23. Data Reviewed: Tests AND Documents Reviewed/ordered: Review of Pathology I have independently interpreted: none I have discussed Isabel Waddell's treatment plan and/or results with patient. Treatment plan: - follow up PRN - encouraged to call with any questions/concerns Attending Note I evaluated the patient and personally participated in the marcum components. I agree with the resident's findings and plan as documented and have discussed the case and management of the patient's care with the resident. I have confirmed and edited as necessary, the PFSH and ROS obtained by others. South Saba DO, FACS, FASCRS Colorectal Surgery' Signature: South Saba DO Date: 10/07/2023 Time: 2:03 PM Risk of morbidity, mortality and/or complications of treatment plan: low Referring Provider: SELF [200] Allergies As of Date: 09/29/2023 (No Known Allergies) Date Reviewed: 09/29/2023 Reviewed by: Laura Griffith RN - Fully Assessed Reason for Visit: Follow Up [171] Primary Visit Diagnosis:Radiation proctitis [K62.7] Other Visit Diagnosis:Endometrial cancer (HCC) [C54.1] Prescriptions as of 10/07/2023 - acetaminophen (TYLENOL) 500 mg tablet Take 1-2 tablets by mouth every 6 hours as needed for pain. Do not exceed 3-4g/24hr. - ibuprofen (MOTRIN) 800 mg tablet Take by mouth q 8 HR. - albuterol HFA (PROVENTIL HFA, VENTOLIN HFA) 90 mcg/actuation inhaler INHALE 2 PUFFS EVERY 4 HOURS NEEDED FOR COUGH OR SHORTNESS OF BREATH FOR 30 DAYS - ADVAIR DISKUS 250-50 mcg/dose inhaler INHALE 1 PUFF TWICE A DAY FOR 30 DAYS - dicyclomine (BENTYL) 10 mg capsule Take 1 capsule by mouth before meals and at bedtime. As needed. - carvedilol (COREG) 25 mg tablet Take 1 tablet by mouth twice daily. - ascorbic acid, vitamin C, (VITAMIN C) 500 mg tablet Take 500 mg by mouth once daily. - iv contrast (will be provided with radiology test) CT Chest ABD/PEL-Inject, intravenously, once for 1 dose.No IV access, insert saline lock prior to the beginning of sedation, infusion, injection of imaging exam. Discontinue saline lock post exam. If Pt. has a central line or IVAD, may access for administration according to line specific nursing protocol. Once exam is complete flush line and de-access according to line specific nursing protocol in the CT contrast administration guidelines link. - enteric contrast (will be provided with radiology test) For CT CHESTABD/PEL W IVCON Routine order Administer, As Directed One Time Only, via Oral, Rectal, both Oral and Rectal, Enteric Tube, Stoma or Indwelling Catheter, Enteric Contrast as designated per enteric contrast guidelines - TURMERIC ORAL Take 1,000 mg by mouth once daily. - venlafaxine ER (EFFEXOR XR) 150 mg 24 hr capsule Take 150 mg by mouth daily at bedtime. - JQYO9-HAJ-WEN-FISH OIL-L.CASEI ORAL Take by mouth once daily. - Lactobac no.41/Bifidobact no.7 (PROBIOTIC-10 ORAL) Take by mouth once daily. - MULTIVITAMIN TAB Take by mouth. - B COMPLEX VITAMINS CAP Take one(1) capsule daily. - CALCIUM CARBONATE-VIT D3-MINERALS 600 MG-400 UNIT TAB Take 1 tablet by mouth two times a day. Facility-Administered Medications as of 10/07/2023 - perflutren lipid microspheres 1.3 mL in NaCl (PF) 0.9% 10 mL injection (DEFINITY) - sodium chloride 0.9 % (flush) 10 mL (BD POSIFLUSH) Problem List As Of Date 09/29/2023 Noted Resolved ABDOMINAL PAIN UNSPEC SITE [R10.9] 03/31/2008 Hypertension [I10] History of thyroid disease [Z86.39] 07/28/2019 Endometrial cancer (HCC) [C54.1] 09/23/2019 Prolactinoma (HCC) [D35.2] Radiation proctitis [K62.7] 07/14/2023 Other specified anemias [D64.89] 09/02 (more content not included)... Normal [facility] ANES POSTPROC EVALon 023 ANES POSTPROC EVAL HNO ID: [id number] Author: Kobe Garcia MD Service: ? Author Type: Anesthesiologist Type: Anesthesia Postprocedure Evaluation Filed: 09/02/2023 10:38 AM Note Text: POST ANESTHESIA EVALUATION NOTE : 1960 Procedure Summary Date: 09/02/23 Room / Location: [place] [address] [facility] Anesthesia Start: 745 Anesthesia Stop: 925 Procedures: EXAM UNDER ANESTHESIA RECTAL (Anus) SIGMOIDOSCOPY FLEXIBLE (Colon Sigmoid) ANOSCOPY W/ CONTROL OF BLEEDING- Formalin treatment (Anus) Diagnosis: Radiation proctitis (Radiation proctitis [K62.7]) Surgeons: South Saba DO Responsible Provider: Kobe Garcia MD Anesthesia Type: general ASA Status: 3 Anesthesia Type: general Airway Type: LMA Last Vitals Vitals Value Taken Time BP 164/78 09/02/23 1030 Temp 37.6 ?C (99.7 ?F) 09/02/23 0959 Pulse 81 09/02/23 1036 Resp 14 09/02/23 1036 SpO2 96 % 09/02/23 1036 Vitals shown include unvalidated device data. Post Anesthesia Patient Status Patient Evaluation: PACU. PACU/ICU Patient Condition: stable. Anticipated Disposition: inpatient floor planned admission. Neurological Status: aware and responsive. Pulmonary Status: breathing comfortably on room air Airway Control: returned to baseline unsupported. Cardiovascular Status: stable. Pain Management: clinically adequate Postoperative Hydration: acceptable. Intraoperative Events: no significant anesthesia events Post Operative Nausea/Vomiting Status: no significant post operative nausea or vomiting Recommendation: continue current plan of care. Other Remarks: Hgb pre-op was 7. Likely to be admitted for transfusion. . Anesthesia Observations No Documentation SIGNATURE: Kobe Garcia MD PATIENT NAME: Isabel Waddell DATE: September 02, 2023 TIME: 10:37 AM CSN: [id number] Normal [facility] ANES PRE-OPon 09-02-2023 ANES PRE-OP HNO ID: [id number] Author: Kobe Garcia MD Service: ? Author Type: Anesthesiologist Type: Anesthesia Preprocedure Evaluation Filed: 09/02/2023 8:30 AM Note Text: ANESTHESIOLOGY DAY OF SURGERY NOTE : 1960 Procedure Information Date/Time: 09/02/23729 Procedures: EXAM UNDER ANESTHESIA RECTAL (Anus) SIGMOIDOSCOPY FLEXIBLE (Colon Sigmoid) ANOSCOPY W/ CONTROL OF BLEEDING- Formalin treatment (Anus) Location: MAIN OR [facility] Surgeons: South Saba DO Estimated body mass index is 23.73 kg/m? as calculated from the following: Height as of this encounter: 167.6 cm (5' 6 ). Weight as of this encounter: 66.7 kg (147 lb). Most recent hematocrit and potassium results: Hematocrit 26.0 08/29/2023 Potassium 4.5 08/29/2023 Relevant Problems CARDIO (+) Hypertension NEURO-PSYCH (+) History of thyroid disease I - PHYSICAL EVALUATION AIRWAY Patient intubated: No. Tracheostomy tube not present Mallampati: II. TM distance: >3 FB. Neck ROM: full ROM without neurological symptoms. Mouth opening: adequate. Short neck: no. Thick neck: no [place] present: no Microretrognathia/Micr onagthia/Recessed Chin: No DENTAL Dental findings: teeth intact. Additional exam findings: yes. Other findings: H/H was very low on labs a few days ago, claims she had a bad blood loss yesterday will recheck HCT this aAM pt. advised she may need a transfusion, she understands, feels very tired / weak no anesthetic problems, or motion sickness, or reflux. II - ANESTHESIA PLAN ASA Score: 3 Anesthetic Plan: general Airway type: LMA The patient is not a current smoker. NPO Status: adequate Beta Alisa Monitoring Plan Monitoring plan: standard ASA. Post Procedure Analgesic Plan Postoperative analgesic plan: parenteral or oral opioids. Informed Consent Anesthetic risks, benefits, alternatives, personnel and consent discussed: yes. Patient / Responsible Republican agrees to proceed: yes Patient / Surrogate agrees to blood products: Yes Significant changes in the patient condition since the History and Physical, not otherwise documented in primary service progress note: no. Potential Anesthesia issues that may suggest increased risk of complications or contraindication to planned procedure: none. Vitals Value Taken Time BP 174/99 09/02/23617 Pulse 88 09/02/23617 Resp 16 09/02/23617 Temp 36.4 ?C (97.5 ?F) 09/02/23617 SpO2 98 % 09/02/23617 Facility-Administered Medications as of 09/02/2023 Medication Dose Route Frequency - lidocaine (PF) 10 mg/mL (1 %) 1-2 mg injection (XYLOCAINE) 0.1-0.2 mL INTRADERMAL PRN Or - lidocaine 1% 0.25 mL subcutaneous j-tip syringe (XYLOCAINE) 0.25 mL SUBCUTANEOUS PRN - lactated ringers iv infusion 5-30 mL/hr INTRAVENOUS CONTINUOUS - NaCl 0.9% iv flush bag 20 mL INTRAVENOUS PRN - acetaminophen 650 mg tab(s) (TYLENOL) 650 mg ORAL Pre-Op Once - promethazine 12.5 mg tab(s) (PHENERGAN) 12.5 mg ORAL Pre-Op Once Outpatient Medications as of 09/02/2023 Medication Sig - dicyclomine (BENTYL) 10 mg capsule Take 1 capsule by mouth before meals and at bedtime. As needed. - carvedilol (COREG) 25 mg tablet Take 1 tablet by mouth twice daily. - TURMERIC ORAL Take 1,000 mg by mouth once daily. - MYKT5-SFB-NXK-FISH OIL-L.CASEI ORAL Take by mouth once daily. - Lactobac no.41/Bifidobact no.7 (PROBIOTIC-10 ORAL) Take by mouth once daily. - CALCIUM CARBONATE-VIT D3-MINERALS 600 MG-400 UNIT TAB Take 1 tablet by mouth two times a day. - ibuprofen (MOTRIN) 800 mg tablet Take by mouth q 8 HR. (Patient not taking: Reported on 08/29/2023) - albuterol HFA (PROVENTIL HFA, VENTOLIN HFA) 90 mcg/actuation inhaler INHALE 2 PUFFS EVERY 4 HOURS NEEDED FOR COUGH OR SHORTNESS OF BREATH FOR 30 DAYS (Patient not taking: Reported on 07/04/2023) - ADVAIR DISKUS 250-50 mcg/dose inhaler INHALE 1 PUFF TWICE A DAY FOR 30 DAYS (Patient not taking: Reported on 07/04/2023) - ascorbic acid, vitamin C, (VITAMIN C) 500 mg tablet Take 500 mg by mouth once daily. - iv contrast (will be provided with radiology test) CT Chest ABD/PEL-Inject, intravenously, once for 1 dose.No IV access, insert saline lock prior to the beginning of sedation, infusion, injection of imaging exam. Discontinue saline lock post exam. If Pt. has a central line or IVAD, may access for administration according to line specific nursing protocol. Once exam is complete flush line and de-access according to line specific nursing protocol in the CT contrast administration guidelines link. (Patient not taking: Reported on 06/27/2023) - enteric contrast (will be provided with radiology test) For CT CHESTABD/PEL W IVCON Routine order Administer, As Directed One Time Only, via Oral, Rectal, both Oral and Rectal, Enteric Tube, Stoma or Indwelling Catheter, Enteric Contrast as designated per enteric contrast guidelines (Patient not taking: Reported on 06/27/2023 (more content not included)... Normal [facility] ANES PREOPon 09-02-2023 ANES PREOP HNO ID: [id number] Author: Kobe Garcia MD Service: Anesthesiology Author Type: Anesthesiologist Type: Anesthesia PreOp Filed: 09/02/2023 7:05 AM Note Text: Healthy except for FAP. Appropriately NPO, denies reflux, no history of anesthesia problems. Reviewed in fathers presence. MP1, no airway concerns, ASA2, Plan for GA with LMA. Has braces, tight , no loose teeth. Normal [facility] BRIEF OP NOTon 09-02-2023 BRIEF OP NOT HNO ID: [id number] Author: Milagro Sanchez MD Service: Colorectal Author Type: Physician Type: Brief Op Note Filed: 09/02/2023 8:57 AM Note Text: BRIEF OPERATIVE NOTE - COLORECTAL SURGERY Log ID: [id number] Surgery/Procedure Date: 09/02/2023 Incision/Procedure Start Time: 8:01 AM Incision Close/Procedure End Time: 8:51 AM Surgeon(s) and Military Science Teacher(s): Surgeon(s) and Role: * South Saba DO - Primary * Milagro Sanchez MD - Assisting No Additional Staff Procedures and Anesthesia: Procedure(s) and Anesthesia Type: * EXAM UNDER ANESTHESIA RECTAL - General * SIGMOIDOSCOPY FLEXIBLE - General * ANOSCOPY W/ CONTROL OF BLEEDING- Formalin treatment - General Stoma Type: N/A Findings: Flex sig with diffuse petechiae and bleeding from radiation proctitis, starting at about 5-6cm and extending distally to dentate line 4% formalin solution applied Gelfoam plug Estimated Blood Loss: Minimal <2mL Specimens: None Diagnosis Code(s): Pre-Op Diagnosis Codes: * Radiation proctitis [K62.7] Postop Diagnosis: Same Drains: None Wound Classification: N/A Complications: None SIGNATURE: Milagro Sanchez MD PATIENT NAME: Isabel Waddell DATE: September 02, 2023 TIME: 8:56 AM [facility] CNDSon 09-02-2023 [facility] HNO ID: [id number] Author: Ricardo White PA-C Service: Colorectal Author Type: Physician Military Science Teacher Type: Discharge Summary Filed: 09/02/2023 2:06 PM Note Text: Attestation signed by South Saba DO at 09/02/2023 4:24 PM South Saba DO, FACS, [facility] Colorectal Surgery DISCHARGE SUMMARY PATIENT NAME: Isabel Waddell ADMISSION DATE: 09/02/2023 DISCHARGE DATE: 09/02/2023 Attending Physician: No att. providers found Code Status: Not on file Highest Readmission Risk Score: 8 The 30 day readmissions risk score is derived from an internally validated risk model which evaluates patient level characteristics, utilization history, medication orders and lab results up until the day of discharge. Patients with a score of 40 or above are considered highest risk for readmission. Specific patient level drivers will be listed at the bottom of the summary. Principal Diagnosis: Radiation proctitis Active Problems: Radiation proctitis (POA: Yes) Other specified anemias (POA: Yes) Resolved Problems: * No resolved hospital problems. * Reason for Hospitalization: Isabel Waddell is a 63-year-old female with a PMHx significant for endometrial cancer (s/p robotic total hysterectomy, BSO, cystotomy/cystotomy repair and cystoscopy (2019) with recurrence s/p radiation), colonic angiectasia (s/p argon plasma) who presented to the hospital for surgery with Dr. Saba. Operations During Hospitalization: EUA + flexible sigmoidoscopy + formalin application (09/02) Procedures During Hospitalization: -Intubation for surgery -2 units pRBCs transfused Hospital Course: Isabel Waddell came to the hospital to have surgery with No att. providers found. Please see operative report for full details. Afterward, the patient was transferred to the observation unit. Your hemoglobin was low pre-operatively and you were kept in observation to transfuse 2 units of pRBCs. Pain was controlled with oral pain medications. Once the patient's pain was controlled with oral medication, GI soft diet was tolerated, and demonstrated appropriate bowel function, she was deemed fit for discharge. The patient is asked to please follow up with Elder Galan CNP in 4 weeks. A follow up appointment has been requested for you. If you do not [facility] a [facility] business [facility] please call Dr. Saba's office at [phone] to make an appointment. Transitions of Care Critical Issues: LABS AND PROCEDURES PENDING AT DISCHARGE: No pending results. Consulting Teams During Hospitalization: None Treatment Team: Primary Service: MISTY SABA Patient Condition @ Discharge: Stable Discharge Disposition: Home with Self Care Postoperative Conditions: Transfusion: Packed red cells given postoperatively Information Provided to Patient: Discharge instructions Diet: -High fiber diet. -Drink eight 8 oz glasses of water daily to keep bowel movements soft. -Take 2 tablespoons of mineral oil for the first 5 nights. Discontinue if stool becomes loose. -If no bowel movement has occurred by 72 hours after surgery or you experience severe straining, take the following steps: 1. Milk of Magnesia- 1 tablespoon every 4-6 hours until relief. 2. If no relief, purchase and consume 10 oz bottle of magnesium citrate. 3. If still no relief, contact the office to speak with the nurse. Activity: -Activity as tolerated. -No lifting over 20 pounds for 2 weeks. -No strenuous exercise, aerobics, or jogging for 2 weeks. -No driving for 48 hours or while taking narcotics. Wound/Surgical Site Care: -Starting the evening of surgery, fill your Sitz bath basin with warm water and place it on your toilet bowel. Sit for 15 minutes, 3 times daily and after each bowel movement. If you have to use toilet tissue, use a moist cotton pad or wet wipe to clean. -Keep a cotton ball at your anal opening at all times. Tuck it between your buttocks without tape, and change it after each Sitz bath. This promotes healing. -Do not use a donut shaped cushion. ALLERGIES No Known Allergies Discharge Medications: Medication List START taking these medications acetaminophen 500 mg tablet Commonly known as: TYLENOL Take 1-2 tablets by mouth every 6 hours as needed for pain. Do not exceed 3-4g/24hr. oxyCODONE IR 5 mg immediate release tablet Commonly known as: ROXICODONE Take 1 tablet by mouth every 6 hours as needed for pain for up to 4 days. CONTINUE taking these medications ascorbic acid (vitamin C) 500 mg tablet Commonly known as: VITAMIN C calcium carbonate-Vit D3-minerals 600 mg calcium- 400 unit Tab Commonly known as: CALTRATE carvedilol 25 mg tablet Commonly known as: COREG dicyclomine 10 mg capsule Commonly (more content not included)... Normal [facility] Hematocrit Auto (Bld) [Volum e fraction]on 09-02-2023 Hematocrit (Bld) [Volume fraction] 27.4 % Low 36.0-46.0 [facility] Comment on above: Order Comment: Speci men Type: BLOOD SPECIMEN Ordering Facility: [facility] Address: [address] [place] [address] Performed By: #### 5 [id number], [id number] #### [facility] CLIA [id number] [address] [place], [place] [address] [address] [place] Hgb Bld-mCncon 09-02-2023 Hemoglobin (Bld) [Mass/Vol] 7.5 g/dL Low 11.5-15.5 [facility] Comment on above: Order Comment: Speci men Type: BLOOD SPECIMEN Ordering Facility: [facility] Address: [address] [place], [place] [id number] Performed By: #### 5 [id number], [id number] #### [facility] CLIA [id number] [facility] [address] [address] [place] OPERATIVE NOon 09-02-2023 OPERATIVE NO HNO ID: [id number] Author: South Saba DO Service: Colorectal Author Type: Physician Type: Operative Report Filed: 09/10/2023 7:14 AM Note Text: OPERATIVE REPORT PATIENT NAME: Isabel Waddell LOG ID: [id number] SURGERY DATE: 09/02/2023 INCISION/PROCEDURE START TIME: 8:01 AM INCISION CLOSE/PROCEDURE END TIME: 8:51 AM PREOPERATIVE DIAGNOSIS: Radiation proctitis, anemia, history of endometrial adenocarcinoma POSTOPERATIVE DIAGNOSIS: Radiation proctitis, anemia, history of endometrial adenocarcinoma OPERATION PERFORMED: Flexible sigmoidoscopy, exam under anesthesia, topical application of formalin to the rectum for treatment of radiation proctitis SURGEON: South Saba DO MANAGER CULINARY: Milagro Sanchez MD. no qualified residents or fellows were available for assistance. ANESTHESIA: General anesthesia with supraglottic airway INDICATIONS: This is a 63-year-old female with history of endometrial adenocarcinoma status post robotic hysterectomy and bilateral salpingo-oophorectomy in 2018, complicated by recurrence in 2020. This was treated with radiation therapy and she subsequently developed radiation proctitis resulting in hematochezia and anemia. She is taken to the operating room today for exam under anesthesia and topical application of formalin for management of her radiation proctitis. Prior to proceeding, the indications, risk, benefits, and alternatives to surgery were discussed with the patient in clinic by Dr. Saba and she consented to proceed OPERATIVE FINDINGS: Flexible sigmoidoscopy demonstrated diffuse petechiae and bleeding from radiation proctitis, starting at about 5 to 6 cm and extending distally to the dentate line. Proximally, the mucosa appeared normal. 4% formalin solution was applied to the areas of bleeding and a Gelfoam plug was placed in the rectum at the conclusion of the procedure to assist with hemostasis. PROCEDURE IN DETAIL: The patient was brought to the operating room and placed in supine position. A multidisciplinary huddle was performed. She was induced under general anesthesia. She did not receive antibiotics or DVT prophylaxis as none were indicated for this procedure. She was repositioned in lithotomy position, taking care to pad any pressure points. A timeout was performed confirming the correct patient, procedure, and site. We began with an exam under anesthesia and flexible sigmoidoscopy. The colonoscope was inserted into the anus and advanced up into the sigmoid colon. 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 In this area, there were diffuse areas of petechiae and active oozing. Proximal to this however, there was normal-appearing mucosa and only old blood without any signs of radiation proctitis. The colonoscope was withdrawn and Hill-Alejandra retractors were inserted into the anus for better visualization of the distal rectum and anal canal where the bulk of her radiation proctitis was located. Vaseline gauze was placed around the anal area to protect the perianal skin from the formalin. 4% formalin in sterile water was soaked into gauze sponges which were then placed into the anal canal and gentle pressure applied against the areas of bleeding. This was repeated circumferentially until all areas of oozing were treated. There was substantial improvement in the amount of oozing and a Gelfoam plug was placed into the anal canal. All instrument, sponge, and needle counts were correct x2. The patient was awakened from anesthesia without issue and brought to the PACU for recovery in stable condition. There were no immediate complications. ESTIMATED BLOOD LOSS: Minimal, less than 2 mL SPECIMENS: None WOUND CLASS: Not applicable DRAINS: None COMPLICATIONS: None PARTICIPATION IN SURGERY PROCEDURE: Dr. Saba was present for the entire procedure as dictated above. Dictated by Dr. Milagro Sanchez on behalf of Dr. South Saba. [place] Saba, DO, FACS, FASCRS Colorectal Surgery Normal [facility] TYPE + SCREENon 09-02-2023 ABO O Normal [facility] Comment on above: Order Comment: Speci men Type: BLOOD SPECIMEN Ordering Facility: [facility] Address: [address] [place] [address] Performed By: #### 5 0190-8, 2276-4 #### [facility] CLIA [id number] [address] [place] [address] [place] HISTORICAL AB SCR STATUS Negative Normal [facility] Comment on above: Order Comment: Speci men Type: BLOOD SPECIMEN Ordering Facility: [facility] Address: [address] [place] [address] Performed By: #### 5 0190-8, 2276-4 #### [facility] CLIA [id number] [address] [place] [address] [place] Rh Nom (Bld) Positive Normal [facility] Comment on above: Order Comment: Speci men Type: BLOOD SPECIMEN Ordering Facility: [facility] Address: [address] [place] [address] Performed By: #### 5 0190-8, 2276-4 #### [facility] CLIA [id number] [address] [place] [address] [place] TYPE AND SCREEN EXPIRATION 09/05/2023 23:59 Normal [facility] Comment on above: Order Comment: Speci men Type: BLOOD SPECIMEN Ordering Facility: [facility] Address: [address] [place] [address] Performed By: #### 5 0190-8, 2276-4 #### [facility] CLIA [id number] [address] [place] [address] [place] CBC W Auto Differential pane l (Bld)on 08-29-2023 Basophils (Bld) [#/Vol] 10*3/uL Normal <0.11 [facility] Comment on above: Order Comment: Speci men Type: BLOOD SPECIMENOrdering Facility: [facility] Address: [address] [place] [address] Performed By: #### 5 7021-8 ####[facility]IA [id number] [place] [address] [place] Basophils/100 WBC (Bld) 0.7 % Normal [facility] Comment on above: Order Comment: Speci men Type: BLOOD SPECIMENOrdering Facility: [facility] Address: [address] [place] [address] Performed By: #### 5 7021-8 ####[facility]CLIA [id number] [place] [address] [place] Differential cell count method Nom (Bld) Auto Normal [facility] Comment on above: Order Comment: Speci men Type: BLOOD SPECIMENOrdering Facility: [facility] Address: [address] [place] [address] Performed By: #### 5 7021-8 ####[facility]CLIA [id number] [place] [address] [place] Eosinophils (Bld) [#/Vol] 0.18 10*3/uL Normal <0.46 [facility] Comment on above: Order Comment: Speci men Type: BLOOD SPECIMENOrdering Facility: [facility] Address: [address] [place] [address] Performed By: #### 5 7021-8 ####[facility]CLIA [id number] [place] [address] [place] Eosinophils/100 WBC (Bld) 5.9 % Normal [facility] Comment on above: Order Comment: Speci men Type: BLOOD SPECIMENOrdering Facility: [facility] Address: [address] [place] [address] Performed By: #### 5 7021-8 ####[facility]CLIA [id number] [place] [address] [place] Erythrocyte distribution width (RBC) [Ratio] 22.0 % High 11.5-15.0 [facility] Comment on above: Order Comment: Speci men Type: BLOOD SPECIMENOrdering Facility: [facility] Address: [address] [place] [address] Performed By: #### 5 7021-8 ####[facility]CLIA [id number] [place] [address] [place] Hematocrit (Bld) [Volume fraction] 26.0 % Low 36.0-46.0 [facility] Comment on above: Order Comment: Speci men Type: BLOOD SPECIMENOrdering Facility: [facility] Address: [address] [place] [address] Performed By: #### 5 7021-8 ####[facility]CLIA [id number] [place] [address] [place] Hemoglobin (Bld) [Mass/Vol] 7.0 g/dL Low 11.5-15.5 [facility] Comment on above: Order Comment: Speci men Type: BLOOD SPECIMENOrdering Facility: [facility] Address: [address] [place] [address] Performed By: #### 5 7021-8 ####[facility]CLIA [id number] [place] [address] [place] Immature granulocytes (Bld) [#/Vol] 10*3/uL Normal <0.10 [facility] Comment on above: Order Comment: Speci men Type: BLOOD SPECIMENOrdering Facility: [facility] Address: [address] [place] [address] Performed By: #### 5 7021-8 ####[facility]CLIA [id number] [place] [address] [place] Immature granulocytes/100 WBC (Bld) 0.0 % Normal [facility] Comment on above: Order Comment: Speci men Type: BLOOD SPECIMENOrdering Facility: [facility] Address: [address] [place] [address] Performed By: #### 5 7021-8 ####[facility] LABIA [id number] [place] [address] [place] Lymphocytes (Bld) [#/Vol] 1.20 10*3/uL Normal 1.00-4.00 [facility] Comment on above: Order Comment: Speci men Type: BLOOD SPECIMENOrdering Facility: [facility] Address: [address] [place] [address] Performed By: #### 5 7021-8 ####[facility]CLIA [id number] [place] [address] [place] Lymphocytes/100 WBC (Bld) 39.1 % Normal [facility] Comment on above: Order Comment: Speci men Type: BLOOD SPECIMENOrdering Facility: [facility] Address: [address] [place] [address] Performed By: #### 5 7021-8 ####[facility]CLIA [id number] [place] [address] [place] MCH (RBC) [Entitic mass] 17.9 pg Low 26.0-34.0 [facility] Comment on above: Order Comment: Speci men Type: BLOOD SPECIMENOrdering Facility: [facility] Address: [address] [place] [address] Performed By: #### 5 7021-8 ####[facility] LABIA [id number] [place] [address] [place] MCHC (RBC) [Mass/Vol] 26.9 g/dL Low 30.5-36.0 [facility] Comment on above: Order Comment: Speci men Type: BLOOD SPECIMENOrdering Facility: [facility] Address: [address] [place] [address] Performed By: #### 5 7021-8 ####[facility]CLIA [id number] [place] [address] [place] MCV (RBC) [Entitic vol] 66.3 fL Low 80.0-100.0 [facility] Comment on above: Order Comment: Speci men Type: BLOOD SPECIMENOrdering Facility: [facility] Address: [address] [place] [address] Performed By: #### 5 7021-8 ####[facility]CLIA [id number] [place] [address] [place] Monocytes (Bld) [#/Vol] 0.40 10*3/uL Normal <0.87 [facility] Comment on above: Order Comment: Speci men Type: BLOOD SPECIMENOrdering Facility: [facility] Address: [address] [place] [address] Performed By: #### 5 7021-8 ####[facility]CLIA [id number] [place] [address] [place] Monocytes/100 WBC (Bld) 13.0 % Normal [facility] Comment on above: Order Comment: Speci men Type: BLOOD SPECIMENOrdering Facility: [facility] Address: [address] [place] [address] Performed By: #### 5 7021-8 ####[facility]CLIA [id number] [place] [address] [place] Neutrophils (Bld) [#/Vol] 1.27 10*3/uL Low 1.45-7.50 [facility] Comment on above: Order Comment: Speci men Type: BLOOD SPECIMENOrdering Facility: [facility] Address: [address] [place] [address] Performed By: #### 5 7021-8 ####[facility]CLIA [id number] [place] [address] [place] Neutrophils/100 WBC (Bld) 41.3 % Normal [facility] Comment on above: Order Comment: Speci men Type: BLOOD SPECIMENOrdering Facility: [facility] Address: [address] [place] [address] Performed By: #### 5 7021-8 ####[facility]CLIA [id number] [place] [address] [place] Nucleated RBC (Bld) [#/Vol] 10*3/uL Normal <0.01 [facility] Comment on above: Order Comment: Speci men Type: BLOOD SPECIMENOrdering Facility: [facility] Address: [address] [place] [address] Performed By: #### 5 7021-8 ####[facility]CLIA [id number] [place] [address] [place] Nucleated RBC/100 WBC (Bld) [Ratio] 0.0 /100 WBC Normal [facility] Comment on above: Order Comment: Speci men Type: BLOOD SPECIMENOrdering Facility: [facility] Address: [address] [place] [address] Performed By: #### 5 7021-8 ####[facility]IA [id number] [place] [address] [place] Platelet mean volume (Bld) [Entitic vol] 9.6 fL Normal 9.0-12.7 [facility] Comment on above: Order Comment: Speci men Type: BLOOD SPECIMENOrdering Facility: [facility] Address: [address] [place] [address] Performed By: #### 5 7021-8 ####[facility]IA [id number] [place] [address] [place] Platelets (Bld) [#/Vol] 266 10*3/uL Normal 150-400 [facility] Comment on above: Order Comment: Speci men Type: BLOOD SPECIMENOrdering Facility: [facility] Address: [address] [place] [address] Performed By: #### 5 7021-8 ####[facility]IA [id number] [place] [address] [place] RBC (Bld) [#/Vol] 3.92 10*6/uL Normal 3.90-5.20 [facility] Comment on above: Order Comment: Speci men Type: BLOOD SPECIMENOrdering Facility: [facility] Address: [address] [place] [address] Performed By: #### 5 7021-8 ####[facility]IA [id number] [place] [address] [place] WBC (Bld) [#/Vol] 3.07 10*3/uL Low 3.70-11.00 [facility] Comment on above: Order Comment: Speci men Type: BLOOD SPECIMENOrdering Facility: [facility] Address: [address] [place] [address] Performed By: #### 5 7021-8 ####[facility] LABLAKIA [id number] [address] [place] CNOVon 08-29-2023 CNOV Office Visit (HOMERO ) ISABEL WADDELL ([id number]) 1960 F Date Time Provider Department 08/29/23 11:00 AM ELDER GALAN During your visit today, we recorded the following information about you: Temperature Pulse Blood pressure Weight 98 degrees 82/minute 163/78 66.7 kg Height 1.676 m Elder Galan APRN.DATABASE ADMINISTRATOR 08/31/2023 9:11 PM Signed COLON AND RECTAL HISTORY AND PHYSICAL EXAMINATION SERVICE DATE: 08/29/2023 Primary Care Physician: Roland Serrano DO Chief complaint: pre operative examination Surgeon: Dr. Saba Procedure: Examination under anesthesia, Flexible sigmoidoscopy, injection of formalin, or any other indicated procedure HPI: Isabel Waddell is a 63 year old female who presents to the clinic for a pre operative exam for the above named procedure on 09/02/23. Today she reports: Changes to health in the last month: no significant changes but continues to have shortness of breath on exertion. Pt saw pulmonary medicine today who attributes this to anema and encouraged the pt to follow up with PCP for iron supplementation Rectal bleeding: yes occurs with most BMs; BRB with wiping Pain:denies bm frequency/consistency: 3-4x/day soft and formed Bowel regimen:none N/V/F/C:denies Eating and drinking ok Review of Systems / PACC screen: Do you have difficulty climbing a full flight of stairs without feeling short of breath? yes Do you require oxygen for your breathing or have your gone to an emergency department because of breathing problems?yes Are you on dialysis or have you been told that your kidneys do not work well as they should? no Do have an implanted cardiac device (pacemaker, defibrillator etc.) that has not been checked in the last 6 months? no Have you had an organ transplant? no Have you been told that you had excessive bleeding during surgical procedures or do you take blood thinning medications other than aspirin? yes Have you ever had a heart attack, heart stents/surgery, valve problems, or other heart problems? no Have you had a stroke, seizures, or unexplained loss of consciousness? no Do you have a neurologic condition like Parkinson's disease or multiple sclerosis? no Have you or a blood relative had a life-threatening reaction to anesthesia? no Do you have cirrhosis of the liver or other liver disease? no Have you had a blood clot within the past year? no Do you take insulin or other injections for diabetes? no Do you have sleep apnea or have you been told you may have sleep apnea? no Do you have other implanted devices (deep brain stimulator, spinal cord stimulator, etc.)? no Physical Exam: BP 157/77 Pulse 82 Temp 36.7 ?C (98 ?F) Ht 167.6 cm (5' 6 ) Wt 66.7 kg (147 lb) SpO2 99% BMI 23.73 kg/m? General: Alert and oriented Skin: Normal color, no rash, no lesions. HEENT: EOM, pupils equal, round and reactive. Cardiovascular: Normal S1 AND S2, no rubs, murmurs or gallops. No JVD. Pulse regular. Lungs: Normal breath sounds, no wheezes or crackles. Abdomen: Soft, non-tender, no rigidity. Extremities: No deformity, no edema or tenderness, no joint swelling or clubbing. Neurological: Normal cognition and motor skills. Pulses: Carotid and radial pulses normal +2. Anorectal: deffered Assessment Medical Decision Making: Assessment AND Diagnosis: Isabel Waddell is a 63 year old female here for a pre operative examination. Patient has the following medical conditions which may affect galina-operative course Anemia - MARIAMA. Last Hgb 7.1. pt to have CBC redrawn today Acute on chronic shortness of breath Data Reviewed: Tests AND Documents Reviewed/ordered: Review of prior notes from [facility] and pulomonary medicine Review of Labs: CBC Treatment plan: I have reviewed with the patient their current symptoms, changes since our last visit, the above listed documents and physical exam. Based on this, the following surgery is planned: Examination under anesthesia, flexible sigmoidoscopy, injection of formalin, or any other indicated procedure. The risks, benefits and anticipated outcomes of the procedure, the risks and benefits of the alternatives to the procedure and the roles and tasks of the personnel to be involved were discussed with the patient and the patient consents to the procedure and agrees to proceed. Informed consent has been obtained. The following details surrounding surgery were discussed: Preoperative prep: none. Per Dr. Saba, patient is to do clear liquids on 09/01/23 and then to be NPO after midnight Informed Dr. Saba about patient's complaints of SOB and will update team about CBC once drawn. Elder Galan, E[employer]MENT[employer] SCHO[employer] REGISTRAR.[facility] Pelvic Floor Colorectal Surgery Risk of morbidity, mortality and/or complications of treatment plan: high Referring Provider: SOUTH SABA [[id number]] Allergies As of Allen (more content not included)... Normal [facility] CNOV Office Visit (PMNA11 ) ISABEL WADDELL Ashlie ([id number]) 1960 F Date Time Provider Department 08/29/23 10:00 AM HEIDI MENARD PMNA11 During your visit today, we recorded the following information about you: Temperature Pulse Respiration Blood pressure 98 degrees 82/minute 16/minute 157/77 Weight 66.7 kg Heidi Menard MD 08/29/2023 1:08 PM Signed Ms. Waddell is a 63 year old female who presents to the [facility] [place]. 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 Prior SOB history: Reports being well from a breathing standpoint until January 2023 ?bronchitis: shortness of breath, cough (dry cough), fever (low grade) for 2 - 3 weeks, visited urgent care was given Abx, prednisone (10 days) and advair Shortness of breath - at baseline is able to walk (unlimited), exercises 2-3 times/week, could ride her bike. Since January, currently limited to within the house, SOB on flat ground, unable to climb stairs. Currently doesn't report cough. Was supposed to get PFTs - was unable to complete them due to shortness of breath, told she has asthma and was put on advair and albuterol. No h/o blood clots, no FH of clots. Never smoker. No h/o joint pains, raynauds, skin rashes, mouth ulcers, photophobia Work up done so far: CT chest with some dynamic collapse, not enough to explain symptoms. Spirometry normal. Pending: lung volumes, DLCO, VQ scan (given h/o cancer) and Echo Advair stopped at last visit. Interval history: reports similar to prior. No changes, minimal improvement in SOB. Review of Systems: GEN: No fevers/chills, night sweats, or weight changes HENT: No rhinorrhea, pharyngitis, sinus drainage, congestion, or oral ulcers EYES: No sudden vision changes CV: No chest pain, palpitations RESP: As above GI: No nausea/vomiting/consti pation/diarrhea, no acid reflu : No dysuria, no hematuria MSK: No joint swelling NEURO: No sudden weakness or numbness SKIN: No rash PSYCH: No hallucinations Past Medical History: 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, diagnosed due to prolonged amenorrhea Thyroid disease Past Surgical History: PAST SURGICAL HISTORY Procedure Laterality Date ANESTH, SECTION x3 ARTHROSCOPY KNEE DIAGNOSTIC W/WO SYNOVIAL BX SPX Left 2017 Arthroscopy, knee BREAST SURGERY HX Right 1983 breast cysts COLONOSCOPY 2003 COLONOSCOPY SCREENING 09/2022 DILATION AND CURETTAGE DXAND/THER NONOBSTETRIC 06/29/2019 Dilation AND curettage HYSTERECTOMY HX 08/12/2019 Robotic TLH, BSO, cystotomy repair KNEE ARTHROSCOPY Right x3 LAPAROSCOPY SURG CHOLECYSTECTOMY ~age 40s Cholecystectomy, lap RECONSTRUCT FINGER Right 2019 R thumb socket REMOVAL GALLBLADDER REMOVE PITUITARY TUMOR W/ SCOPE 1981 SHOULDER SURGERY HX Bilateral ~2012, 2014 Work and Social Histories: Social History Tobacco Use Smoking status: Never Smokeless tobacco: Never Vaping Use Vaping Use: Never used Substance Use Topics Alcohol use: Yes Comment: 3 drinks per month Drug use: Never Occupation/Exposures: 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 No pets Family History: FAMILY HISTORY Problem Relation Age of Onset Thyroid Mother Thyroid Maternal Grandmother Allergies: Patient has no known allergies. Outpatient Medications: ADVAIR DISKUS 250-50 mcg/dose inhalerINHALE 1 PUFF TWICE A DAY FOR 30 DAYSDisp: Rfl: (Patient not taking: Reported on 07/04/2023) albuterol HFA (PROVENTIL HFA, VENTOLIN HFA) 90 mcg/actuation inhalerINHALE 2 PUFFS EVERY 4 HOURS NEEDED FOR COUGH OR SHORTNESS OF BREATH FOR 30 DAYSDisp: Rfl: (Patient not taking: Reported on 07/04/2023) ascorbic acid, vitamin C, (VITAMIN C) 500 mg tabletTake 500 mg by mouth once daily.Disp: Rfl: B COMPLEX VITAMINS CAPTake one(1) capsule daily.Disp: Rfl: 0 CALCIUM CARBONATE-VIT D3-MINERALS 600 MG-400 UNIT TABTake 1 tablet by mouth twice daily. Disp: Rfl: 0 (Patient not taking: Reported on 07/04/2023) carvedilol (COREG) 25 mg tabletTake 1 tablet by mouth twice daily.Disp: Rfl: dicyclomine (BENTYL) 10 mg capsuleTake 1 capsule by mouth before meals and at bedtime. As needed.Disp: Rfl: enteric contrast (will be provided with radiolo (more content not included)... Normal [facility] Comprehensive metabolic 2000 panelon 08-29-2023 Albumin [Mass/Vol] 3.9 g/dL Normal 3.9-4.9 [facility] Comment on above: Order Comment: Speci men Type: BLOOD SPECIMEN Ordering Facility: [facility] Address: [address] [place] [id number] Performed By: #### 5 0190-8, 2276-4 #### [facility] CLIA [id number] [address] [place] [id number] [place] ALP [Catalytic activity/Vol] 164 U/L High 34-123 [facility] Comment on above: Order Comment: Speci men Type: BLOOD SPECIMEN Ordering Facility: [facility] Address: [address] [place] [address] Performed By: #### 5 0190-8, 2275-4 #### [facility] CLIA [id number] [address] [place] [address] [place] ALT [Catalytic activity/Vol] 45 U/L High 7-38 [facility] Comment on above: Order Comment: Speci men Type: BLOOD SPECIMEN Ordering Facility: [facility] Address: [address] [place] [address] Performed By: #### 5 0190-8, 2275-4 #### [facility] CLIA [id number] [address] [place] [address] [place] Anion gap [Moles/Vol] 10 mmol/L Normal 9-18 [facility] Comment on above: Order Comment: Speci men Type: BLOOD SPECIMEN Ordering Facility: [facility] Address: [address] [place], [place] [id number] Performed By: #### 5 0190-8, 2275-4 #### [facility] CLIA [id number] [address] [place] [address] [place] AST [Catalytic activity/Vol] 48 U/L High 13-35 [facility] Comment on above: Order Comment: Speci men Type: BLOOD SPECIMEN Ordering Facility: [facility] Address: [address] [place], [place] [id number] Performed By: #### 5 0190-8, 2275-4 #### [facility] CLIA [id number] [address] [place] [address] [place] Bilirubin [Mass/Vol] 0.3 mg/dL Normal 0.2-1.3 [facility] Comment on above: Order Comment: Speci men Type: BLOOD SPECIMEN Ordering Facility: [facility] Address: [address] Performed By: #### 5 0190-8, 2275- #### [facility] CLIA [id number] [address] [place] [address] [place] Calcium [Mass/Vol] 9.5 mg/dL Normal 8.5-10.2 [facility] Comment on above: Order Comment: Speci men Type: BLOOD SPECIMEN Ordering Facility: [facility] Address: [address] [place] [address] Performed By: #### 5 0190-8, 2275- #### [facility] CLIA [id number] [address] [place] [address] [place] Chloride [Moles/Vol] 107 mmol/L High 97-105 [facility] Comment on above: Order Comment: Speci men Type: BLOOD SPECIMEN Ordering Facility: [facility] Address: [address] [place], [place] [address] Performed By: #### 5 0190-8, 2276-02 #### [facility] CLIA [id number] [address] [place] [address] [place] CO2 [Moles/Vol] 24 mmol/L Normal 22-30 [facility] Comment on above: Order Comment: Speci men Type: BLOOD SPECIMEN Ordering Facility: [facility] Address: [address] Performed By: #### 5 0190-8, 2275- #### [facility] CLIA [id number] [address] [place] [address] [place] Creatinine [Mass/Vol] 0.61 mg/dL Normal 0.58-0.96 [facility] Comment on above: Order Comment: Speci men Type: BLOOD SPECIMEN Ordering Facility: [facility] Address: [address] [place] [id number] Performed By: #### 5 0190-8, 2276-4 #### [facility] CLIA [id number] [address] [place] [address] [place] Creatinine and Glomerular filtration rate.predicted panel (S/P/Bld) 101 mL/min/1.73m??? Normal >=60 [facility] Comment on above: Order Comment: Adonis mayo Type: BLOOD SPECIMEN Ordering Facility: [facility] Address: [address] [place] [address] Result Comment: Kae mated Glomerular Filtration Rate (eGFR) is calculated using the 2020 CKD-EPI creatinine equation. This equation utilizes serum creatinine, sex, and age as parameters. The creatinine assay has traceable calibration to isotope dilution-mass spectrometry. Refer to KDIGO guidelines for clinical interpretation. In patients with unstable renal function, e.g. those with acute kidney injury, the eGFR may not accurately reflect actual GFR. Performed By: #### 5 0190-8, 2276-4 #### [facility] CLIA [id number] [address] [place] [address] [place] Glucose [Mass/Vol] 94 mg/dL Normal 74-99 [facility] Comment on above: Order Comment: Adonis mayo Type: BLOOD SPECIMEN Ordering Facility: [facility] Address: [address] [place] [address] Result Comment: The [place] [employer] (ADA) provides guidance for cutoff values for fasting glucose and random glucose. The ADA defines fasting as no caloric intake for at least 8 hours. Fasting plasma glucose results between 100 to 125 mg/dL indicate increased risk for diabetes (prediabetes). Fasting plasma glucose results greater than or equal to 126 mg/dL meet the criteria for diagnosis of diabetes. In the absence of unequivocal hyperglycemia, results should be confirmed by repeat testing. In a patient with classic symptoms of hyperglycemia or hyperglycemic crisis, random plasma glucose results greater than or equal to 200 mg/dL meet the criteria for diagnosis of diabetes. Reference: Standards of Medical Care in Diabetes 2016, [place] [employer]. Diabetes Care. 2016.39(Suppl 1). Performed By: #### 5 0190-8, 2276-02 #### [facility] CLIA [id number] [address] [place] [address] [place] Potassium [Moles/Vol] 4.5 mmol/L Normal 3.7-5.1 [facility] Comment on above: Order Comment: Speci men Type: BLOOD SPECIMEN Ordering Facility: [facility] Address: [address] [place] [address] Performed By: #### 5 0190-8, 2276-02 #### [facility] CLIA [id number] [address] [place] [address] [place] Protein [Mass/Vol] 6.4 g/dL Normal 6.3-8.0 [facility] Comment on above: Order Comment: Speci men Type: BLOOD SPECIMEN Ordering Facility: [facility] Address: [address] Performed By: #### 5 0190-8, 2276-02 #### [facility] CLIA [id number] [address] [place] [address] [place] Sodium [Moles/Vol] 141 mmol/L Normal 136-144 [facility] Comment on above: Order Comment: Speci men Type: BLOOD SPECIMEN Ordering Facility: [facility] Address: [address] [place] [address] Performed By: #### 5 0190-8, 2276-02 #### [facility] CLIA [id number] [address] [place] [id number] [place] Urea nitrogen [Mass/Vol] 13 mg/dL Normal 7-21 [facility] Comment on above: Order Comment: Speci men Type: BLOOD SPECIMEN Ordering Facility: [facility] Address: [address] Performed By: #### 5 0190-8, 2275- #### [facility] CLIA [id number] [address] [place] [id number] [place] ECG COMPLETEon 08-29-2023 ECG COMPLETE Ventricular Rate : 7 6 BPM Atrial Rate : 76 BPM P-R Interval : 194 ms QRS Duration : 82 ms Q-T Interval : 392 ms QTC Calculation(Bazett) : 441 ms Calculated P Anderson : 22 degrees Calculated R Anderson : 58 degrees Calculated T Anderson : 43 degrees NORMAL SINUS RHYTHM POSSIBLE LEFT ATRIAL ENLARGEMENT LEFT VENTRICULAR HYPERTROPHY ABNORMAL ECG Confirmed by MING MITCHELL MD ([id number]) on 09/02/2023 9:46:08 PM NAME : ISABEL WADDELL PID : [id number] : 1960 Gender : Female Race : ORD : [id number] Procedure Date : Aug 29 2023 13:01:41 Edit Date : Sep 02 2023 21:46:10 Diagnosis: NORMAL SINUS RHYTHM POSSIBLE LEFT ATRIAL ENLARGEMENT LEFT VENTRICULAR HYPERTROPHY ABNORMAL ECG Confirmed by MING MITCHELL MD ([id number]) on 09/02/2023 9:46:08 PM Test Reason : Location : 119 : A17 A17 Overread By : MING MITCHELL MD Edited By : MING MITCHELL MD Referred By : [facility] Acquired by : YASMIN AVILA [facility] ECHOon 08-29-2023 Echocardiography Echocardiography Report: Transthoracic Echo [facility] GUNNAR-2 Date of service: 08/29/2023 1:42:07 PM TESTER Ordering physician: MIKE THOMPSON Indication: Shortness of breath Technologist: Ashlee Mera [facility] Interpreting physician: Mikki Etienne MD PATIENT: Name: MRS. ISABEL WADDELL : 1960 Age: 63 years Gender: F History of hypertension. Primary rhythm: sinus. Height: 167.60 cm BSA: 1.76 m Weight: 66.50 kg BMI: 23.7 kg/m Heart rate 86 bpm Blood pressure 163/78 mmHg Color Doppler was utilized to interrogate the cardiac valves assessed and spectral Doppler was utilized to determine the flow velocities and pressure gradients reported in this exam. MEASUREMENTS: Value Indexed Normal Max aortic dimension 3.3 cm Ao < 3.8 Left atrial volume 115 ml (biplane A-L) 65 ml/m Delano <= 34 LV ID (diastole) 4.7 cm (2D) 2.67 cm/m LV ID (systole) 3.1 cm (2D) 1.76 cm/m IVS, leaflet tips 1.0 cm (2D) Posterior wall thickness 1.1 cm (2D) Left ventricular mass 176 g (2D) 100 g/m LV stroke volume 114 ml (2D biplane) LV end diastolic volume 160 ml (2D biplane) 90.9 ml/m 29<=EDVi<62 LV end systolic volume 46 ml (2D biplane) 26.3 ml/m Ejection Fraction 71 % (2D biplane) EF > 54 FINDINGS: LEFT VENTRICLE The left ventricle is severely dilated. Left ventricular systolic function is normal. Indeterminate left ventricular diastolic dysfunction. Mitral annular lateral E/e': 7.0. Mitral annular septal E/e': 7.7. Wall Motion: All scored segments are normal. RIGHT VENTRICLE The right ventricle is normal in size. Right ventricular systolic function is normal. RV systolic tissue Doppler velocity is 15.1 cm/s. Tricuspid annular displacement is 3.2 cm. Estimated right ventricular systolic pressure is 39 mmHg consistent with mild pulmonary hypertension. Estimated right atrial pressure is 3 mmHg based on IVC assessment. LEFT ATRIUM The left atrial cavity is dilated. RIGHT ATRIUM The right atrial cavity is dilated. Inferior Vena Cava: The inferior vena cava appears normal measuring 1.8 cm. The vessel decreases greater than 50 percent with inspiration. MITRAL VALVE There is mild (1+) mitral valve regurgitation. There is mild thickening. The pressure half time is 77 msec. The peak mitral E/A ratio is 1.23. The average mitral E/e' ratio is 7.3. The mitral flow deceleration time is 267 msec. TRICUSPID VALVE There is trace (trace - 1+) tricuspid valve regurgitation. There is no thickening. The hepatic venous pattern showed normal systolic flow. AORTIC VALVE There is no aortic valve regurgitation. Tricuspid aortic valve. There is no thickening. The peak gradient is 11 mmHg (peak velocity = 167.0 cm/s). PULMONIC VALVE There is trace pulmonic valve regurgitation. There is no thickening. The peak gradient is 7 mmHg. AORTA The visualized aorta is normal in size. Measurements - Sinus: 3.0 cm. Sinotubular junction 2.6 cm. Mid ascending aorta 3.3 cm. Distal ascending aorta 3.3 cm. Mid arch 2.1 cm. Distal descending diaphragmatic level 2.1 cm. PULMONARY ARTERIES The pulmonary arteries are normal. The main pulmonary artery diameter is 2.6 cm (diastolic). The right pulmonary artery diameter is 2.5 cm (diastolic). The right pulmonary artery peak velocity is 98.8 cm/s. The right pulmonary artery peak gradient is 4 mmHg. The left pulmonary artery diameter is 2.3 cm (diastolic). The left pulmonary artery peak velocity is 118.0 cm/s. The left pulmonary artery peak gradient is 6 mmHg. INTERATRIAL SEPTUM There is no evidence of intracardiac shunting as detected by Doppler. INTERVENTRICULAR SEPTUM The interventricular septum is normal. There is no flow through the interventricular septum as detected by Doppler. PERICARDIUM There is no pericardial effusion. CONCLUSIONS: - Exam indication: Shortness of breath - The left ventricle is severely dilated. Left ventricular systolic function is normal. EF = 71 5% (2D biplane) Indeterminate left ventricular diastolic dysfunction. - The right ventricle is normal in size. Right ventricular systolic function is normal. FAC: 55.9%. - The left atrial cavity is dilated. - The right atrial cavity is dilated. - Estimated right ventricular systolic pressure is 39 mmHg consistent with mild pulmonary hypertension. Estimated right atrial pressure is 3 mmHg based on IVC assessment. - There are no significant valvular abnormalities. - The patient has not had a prior CC echocardiographic exam for comparison. * * * Final * * * CC Work [employer] [facility] : [id number] Normal [facility] HISTORY PHYSICALon HISTORY PHYSICAL HNO ID: [id number] Author: Elder Galan APRN.MONSERRAT Service: ? Author Type: Nurse Practitioner Type: HANDP Filed: 08/31/2023 9:11 PM Note Text: COLON AND RECTAL HISTORY AND PHYSICAL EXAMINATION SERVICE DATE: 08/29/2023 Primary Care Physician: Roland Serrano DO Chief complaint: pre operative examination Surgeon: Dr. Saba Procedure: Examination under anesthesia, Flexible sigmoidoscopy, injection of formalin, or any other indicated procedure HPI: Isabel Waddell is a 63 year old female who presents to the clinic for a pre operative exam for the above named procedure on 09/02/23. Today she reports: Changes to health in the last month: no significant changes but continues to have shortness of breath on exertion. Pt saw pulmonary medicine today who attributes this to anema and encouraged the pt to follow up with PCP for iron supplementation Rectal bleeding: yes occurs with most BMs; BRB with wiping Pain:denies bm frequency/consistency: 3-4x/day soft and formed Bowel regimen:none N/V/F/C:denies Eating and drinking ok Review of Systems / PACC screen: Do you have difficulty climbing a full flight of stairs without feeling short of breath? yes Do you require oxygen for your breathing or have your gone to an emergency department because of breathing problems?yes Are you on dialysis or have you been told that your kidneys do not work well as they should? no Do have an implanted cardiac device (pacemaker, defibrillator etc.) that has not been checked in the last 6 months? no Have you had an organ transplant? no Have you been told that you had excessive bleeding during surgical procedures or do you take blood thinning medications other than aspirin? yes Have you ever had a heart attack, heart stents/surgery, valve problems, or other heart problems? no Have you had a stroke, seizures, or unexplained loss of consciousness? no Do you have a neurologic condition like Parkinson's disease or multiple sclerosis? no Have you or a blood relative had a life-threatening reaction to anesthesia? no Do you have cirrhosis of the liver or other liver disease? no Have you had a blood clot within the past year? no Do you take insulin or other injections for diabetes? no Do you have sleep apnea or have you been told you may have sleep apnea? no Do you have other implanted devices (deep brain stimulator, spinal cord stimulator, etc.)? no Physical Exam: BP 157/77 Pulse 82 Temp 36.7 ?C (98 ?F) Ht 167.6 cm (5' 6 ) Wt 66.7 kg (147 lb) SpO2 99% BMI 23.73 kg/m? General: Alert and oriented Skin: Normal color, no rash, no lesions. HEENT: EOM, pupils equal, round and reactive. Cardiovascular: Normal S1 AND S2, no rubs, murmurs or gallops. No JVD. Pulse regular. Lungs: Normal breath sounds, no wheezes or crackles. Abdomen: Soft, non-tender, no rigidity. Extremities: No deformity, no edema or tenderness, no joint swelling or clubbing. Neurological: Normal cognition and motor skills. Pulses: Carotid and radial pulses normal +2. Anorectal: deffered Assessment Medical Decision Making: Assessment AND Diagnosis: Isabel Waddell is a 63 year old female here for a pre operative examination. Patient has the following medical conditions which may affect galina-operative course Anemia - MARIAMA. Last Hgb 7.1. pt to have CBC redrawn today Acute on chronic shortness of breath Data Reviewed: Tests AND Documents Reviewed/ordered: Review of prior notes from [facility] and pulomonary medicine Review of Labs: CBC Treatment plan: I have reviewed with the patient their current symptoms, changes since our last visit, the above listed documents and physical exam. Based on this, the following surgery is planned: Examination under anesthesia, flexible sigmoidoscopy, injection of formalin, or any other indicated procedure. The risks, benefits and anticipated outcomes of the procedure, the risks and benefits of the alternatives to the procedure and the roles and tasks of the personnel to be involved were discussed with the patient and the patient consents to the procedure and agrees to proceed. Informed consent has been obtained. The following details surrounding surgery were discussed: Preoperative prep: none. Per Dr. aSba, patient is to do clear liquids on 09/01/23 and then to be NPO after midnight Informed Dr. Saba about patient's complaints of SOB and will update team about CBC once drawn. Elder Galan APRN.DATABASE ADMINISTRATOR Pelvic Floor Colorectal Surgery Risk of morbidity, mortality and/or complications of treatment plan: high Normal [facility] TYPE + SCREENon 08-29-2023 ABO group Nom (Bld) O [facility] Blood group antibody screen Ql Negative [facility] HIstorical Ab Scr Status Negative [facility] Rh Nom (Bld) Positive [facility] Type and Screen Expiration 09/01/2023 23:59 [facility] ABO O Normal [facility] Comment on above: Order Comment: Speci men Type: BLOOD SPECIMEN Ordering Facility: [facility] Address: [address] [place] [address] Performed By: #### 5 0190-8, 6-4 #### [facility] CLIA [id number] [address] OF [facility] HISTORICAL AB SCR STATUS Negative Normal [facility] Comment on above: Order Comment: Speci men Type: BLOOD SPECIMEN Ordering Facility: [facility] Address: [address] [place] [address] Performed By: #### 5 0190-8, 2275-4 #### [facility] CLIA [id number] [address] [place] [address] [place] Rh Nom (Bld) Positive Normal [facility] Comment on above: Order Comment: Speci men Type: BLOOD SPECIMEN Ordering Facility: [facility] Address: [address] [place] [address] Performed By: #### 5 0190-8, 2275-4 #### [facility] CLIA [id number] [address] [place] [address] [place] TYPE AND SCREEN EXPIRATION 09/01/2023 23:59 Normal [facility] Comment on above: Order Comment: Speci men Type: BLOOD SPECIMEN Ordering Facility: [facility] Address: [address] [place] [address] Performed By: #### 5 0190-8, 2275-4 #### [facility] CLIA [id number] [address] [place] [address] [place] XR CHEST 2V FRONTAL/LATon XR CHEST 2V FRONTAL/LAT * * *Final Report* * * DATE OF EXAM: Aug 29 2023 9:11AM AOX 5291 - XR CHEST 2V FRONTAL/LAT / PROCEDURE REASON: Dyspnea, unspecified type * * * * Physician Interpretation * * * * EXAMINATION: CHEST RADIOGRAPH (2 VIEW FRONTAL and LATERAL) Clinical History: Dyspnea, unspecified type M: XC2_6 Comparison: prior chest radiograph dated 07/28/2019 RESULT: Lines, tubes, and devices: N/A Lungs and pleura: Scattered linear opacities probably atelectasis. No focal consolidations or effusions. Right lower calcified granuloma. No pneumothorax. Cardiomediastinal silhouette: Stable borderline cardiac silhouette enlargement. Other: Mild degenerative changes of the thoracic spine. IMPRESSION: See Result. Fiberglass Boat Finisher: DANA Transcribe Date/Time: Aug 29 2023 9:55A Dictated by : KRYSTIAN MULTANI MD This examination was interpreted and the report reviewed and electronically signed by: KRYSTIAN MULTANI MD on Aug 29 2023 9:57AM EST [id number] Normal [facility] CT CHEST WO IVCONon 08-22-20 CT CHEST WO IVCON * * *Final Report* * * DATE OF EXAM: Aug 22 2023 8:49AM [facility] 0541 - CT CHEST WO IVCON / PROCEDURE REASON: Interstitial pulmonary disease (HCC) * * * * Physician Interpretation * * * * EXAMINATION: CHEST CT WITHOUT CONTRAST CLINICAL HISTORY: Interstitial lung disease History of endometrial cancer Technique: Spiral CT acquisition of the chest from the thoracic inlet to the upper abdomen without contrast. MQ: CTCWO_6 CT Radiation dose: Integrated Dose-length product (DLP) for this visit = 138 mGy*cm CT Dose Reduction Employed: Automated exposure control(AEC) and iterative recon Comparison: 12/13/2021, 06/04/2021 RESULT: Limitations: None. Lines, tubes, and devices: None. Lung parenchyma and airways: No consolidation. Densely calcified granulomas in the right lung. Bandlike opacities in left lung base likely reflect atelectasis. No suspicious pulmonary nodule. No findings of traction bronchiectasis, interlobular septal thickening or honeycombing. There is excessive dynamic collapse of the mainstem bronchi. The central airways are patent. Pleural space: No pleural effusion. No pleural thickening. Lower neck, lymph nodes, and mediastinum: The imaged thyroid gland is normal. No lymphadenopathy in the supraclavicular, axillary, mediastinal, or hilar regions. Heart, pericardium, and thoracic vessels: The thoracic aorta and main pulmonary artery are normal in caliber. The cardiac chambers are normal in size. No coronary artery atherosclerotic calcifications are noted, although the study is not optimized for coronary assessment. No pericardial effusion or thickening. Bones and soft tissues: No destructive bone lesion. Chest wall is unremarkable. Upper abdomen: Prior cholecystectomy. On Site Manager (topogram) images: No additional findings. IMPRESSION: 1. No convincing findings of interstitial lung disease. There is excessive dynamic collapse of mainstem bronchi. 2. Unchanged scattered calcified granulomas. No suspicious lung nodules. Fiberglass Boat Finisher: DANA Transcribe Date/Time: Aug 22 2023 8:56A Dictated by : RICHARD LOVELACE MD This examination was interpreted and the report reviewed and electronically signed by: RICHARD LOVELACE MD on Aug 22 2023 9:01AM EST [id number] Normal [facility] CNPNon 07-22-2023 CNPN Telephone (HOMERO) ISABEL WADDELL ([id number]) 1960 F Date Time Provider Department 07/22/23 [facility] During your visit today, we recorded the following information about you: [facility] 07/22/2023 3:18 PM Signed Isabel Waddell accepts 09/01 and 09/02 dates for preop and surgery Allergies As of Date: 07/22/2023 (No Known Allergies) Date Reviewed: 07/04/2023 Reviewed by: Laura Griffith, NIKITA - Fully Assessed Prescriptions as of 07/22/2023 - albuterol HFA (PROVENTIL HFA, VENTOLIN HFA) 90 mcg/actuation inhaler INHALE 2 PUFFS EVERY 4 HOURS NEEDED FOR COUGH OR SHORTNESS OF BREATH FOR 30 DAYS - ADVAIR DISKUS 250-50 mcg/dose inhaler INHALE 1 PUFF TWICE A DAY FOR 30 DAYS - dicyclomine (BENTYL) 10 mg capsule Take 1 capsule by mouth before meals and at bedtime. As needed. - carvedilol (COREG) 25 mg tablet Take 1 tablet by mouth twice daily. - ascorbic acid, vitamin C, (VITAMIN C) 500 mg tablet Take 500 mg by mouth once daily. - iv contrast (will be provided with radiology test) CT Chest ABD/PEL-Inject, intravenously, once for 1 dose.No IV access, insert saline lock prior to the beginning of sedation, infusion, injection of imaging exam. Discontinue saline lock post exam. If Pt. has a central line or IVAD, may access for administration according to line specific nursing protocol. Once exam is complete flush line and de-access according to line specific nursing protocol in the CT contrast administration guidelines link. - enteric contrast (will be provided with radiology test) For CT CHESTABD/PEL W IVCON Routine order Administer, As Directed One Time Only, via Oral, Rectal, both Oral and Rectal, Enteric Tube, Stoma or Indwelling Catheter, Enteric Contrast as designated per enteric contrast guidelines - TURMERIC ORAL Take 1,000 mg by mouth once daily. - venlafaxine ER (EFFEXOR XR) 150 mg 24 hr capsule Take 150 mg by mouth daily at bedtime. - FOMG7-KVY-AAB-FISH OIL-L.CASEI ORAL Take by mouth once daily. - Lactobac no.41/Bifidobact no.7 (PROBIOTIC-10 ORAL) Take by mouth once daily. - MULTIVITAMIN TAB Take one(1) tablet daily. - B COMPLEX VITAMINS CAP Take one(1) capsule daily. - CALCIUM CARBONATE-VIT D3-MINERALS 600 MG-400 UNIT TAB Take 1 tablet by mouth twice daily. 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 Allergies As of Date: 07/22/2023 (No Known Allergies) Date Reviewed: 07/04/2023 Reviewed by: Laura Griffith, RN - Fully Assessed Reason for Visit: Patient Update [1234] Prescriptions as of 07/22/2023 - albuterol HFA (PROVENTIL HFA, VENTOLIN HFA) 90 mcg/actuation inhaler INHALE 2 PUFFS EVERY 4 HOURS NEEDED FOR COUGH OR SHORTNESS OF BREATH FOR 30 DAYS - ADVAIR DISKUS 250-50 mcg/dose inhaler INHALE 1 PUFF TWICE A DAY FOR 30 DAYS - dicyclomine (BENTYL) 10 mg capsule Take 1 capsule by mouth before meals and at bedtime. As needed. - carvedilol (COREG) 25 mg tablet Take 1 tablet by mouth twice daily. - ascorbic acid, vitamin C, (VITAMIN C) 500 mg tablet Take 500 mg by mouth once daily. - iv contrast (will be provided with radiology test) CT Chest ABD/PEL-Inject, intravenously, once for 1 dose.No IV access, insert saline lock prior to the beginning of sedation, infusion, injection of imaging exam. Discontinue saline lock post exam. If Pt. has a central line or IVAD, may access for administration according to line specific nursing protocol. Once exam is complete flush line and de-access according to line specific nursing protocol in the CT contrast administration guidelines link. - enteric contrast (will be provided with radiology test) For CT CHESTABD/PEL W IVCON Routine order Administer, As Directed One Time Only, via Oral, Rectal, both Oral and Rectal, Enteric Tube, Stoma or Indwelling Catheter, Enteric Contrast as designated per enteric contrast guidelines - ARMANDOMERIC ORAL Take 1,000 mg by mouth once daily. - venlafaxine ER (EFFEXOR XR) 150 mg 24 hr capsule Take 150 mg by mouth daily at bedtime. - [id number]-HQY-UUK-FISH OIL-L.CASEI ORAL Take by mouth once daily. - Lactobac no.41/Bifidobact no.7 (PROBIOTIC-10 ORAL) Take by mouth once daily. - MULTIVITAMIN TAB Take one(1) tablet daily. - B COMPLEX VITAMINS CAP Take one(1) capsule daily. - CALCIUM CARBONATE-VIT D3-MINERALS 600 MG-400 UNIT TAB Take 1 tablet by mouth twice daily. Facility-Administered Medications as of 07/22/2023 - perflutren lipid microspheres 1.3 mL in NaCl (PF) 0.9% 10 mL injection (DEFINITY) - sodium chloride 0.9 % (flush) 10 mL (BD POSIFLUSH) Problem List As Of Date 07/22/2023 Noted Resolved ABDOMINAL PAIN UNSPEC SITE [R10.9] 03/31/2008 Hypertension [I10] History of thyroid disease [Z86.39] 07/28/2019 Endometrial cancer (HCC) [C54.1] 09/23/2019 Prolactinoma (HCC) [D35.2] Radiation proctitis [K62.7] 07/14/2023 Encounter Status:Closed by ENID BAKER on 07/22/23 Normal [facility] Comprehensive metabolic 2000 panelon 07-05-2023 Albumin [Mass/Vol] 4.0 g/dL 3.9 - 4.9 g/dL [facility] ALP [Catalytic activity/Vol] 161 U/L High 34 - 123 U/L [facility] ALT [Catalytic activity/Vol] 47 U/L High 7 - 38 U/L [facility] Anion gap [Moles/Vol] 11 mmol/L 9 - 18 mmol/L [facility] AST [Catalytic activity/Vol] 41 U/L High 13 - 35 U/L [facility] Bilirubin [Mass/Vol] 0.3 mg/dL 0.2 - 1 .3 mg/dL [facility] Calcium [Mass/Vol] 9.5 mg/dL 8.5 - 10. 2 mg/dL [facility] Chloride [Moles/Vol] 105 mmol/L 97 - 10 5 mmol/L [facility] CO2 [Moles/Vol] 26 mmol/L 22 - 30 mmol/L [facility] Creatinine [Mass/Vol] 0.74 mg/dL 0.58 - 0.96 mg/dL [facility] Estimated Glomerular Filtration Rate 91 mL/min/1.73m >=60 mL/min/1.73m [facility] Glucose [Mass/Vol] 104 mg/dL High 74 - 99 mg/dL [facility] Potassium [Moles/Vol] 4.5 mmol/L 3.7 - 5.1 mmol/L [facility] Protein [Mass/Vol] 6.3 g/dL 6.3 - 8.0 g/dL [facility] Sodium [Moles/Vol] 142 mmol/L 136 - 144 mmol/L [facility] Urea nitrogen [Mass/Vol] 16 mg/dL 7 - 21 mg/dL [facility] CBC W Auto Differential pane l (Bld)on 07-04-2023 Basophils (Bld) [#/Vol] 0.03 10*3/uL Normal <0.11 [facility] Comment on above: Order Comment: Speci men Type: BLOOD SPECIMEN Ordering Facility: [facility] Address: [address] [place] [address] Performed By: #### 5 0190-8, 2275- #### [facility] CLIA [id number] [address] [place] [address] [place] Basophils/100 WBC (Bld) 0.9 % Normal [facility] Comment on above: Order Comment: Speci men Type: BLOOD SPECIMEN Ordering Facility: [facility] Address: [address] Performed By: #### 5 0190-8, 2275- #### [facility] CLIA [id number] [address] [place] [address] [place] Differential cell count method Nom (Bld) Auto Normal [facility] Comment on above: Order Comment: Speci men Type: BLOOD SPECIMEN Ordering Facility: [facility] Address: [address] Performed By: #### 5 0190-8, 2276-02 #### [facility] CLIA [id number] [address] [place] [address] [place] Eosinophils (Bld) [#/Vol] 0.16 10*3/uL Normal <0.46 [facility] Comment on above: Order Comment: Speci men Type: BLOOD SPECIMEN Ordering Facility: [facility] Address: [address] [place] [address] Performed By: #### 5 0190-8, 2276-02 #### [facility] CLIA [id number] [address] [place] [address] [place] Eosinophils/100 WBC (Bld) 4.9 % Normal [facility] Comment on above: Order Comment: Speci men Type: BLOOD SPECIMEN Ordering Facility: [facility] Address: [address] [place] [address] Performed By: #### 5 0190-8, 2276-02 #### [facility] CLIA [id number] [address] [place] [address] [place] Erythrocyte distribution width (RBC) [Ratio] 19.9 % High 11.5-15.0 [facility] Comment on above: Order Comment: Speci men Type: BLOOD SPECIMEN Ordering Facility: [facility] Address: [address] [place] [address] Performed By: #### 5 0190-8, 2276-02 #### [facility] CLIA [id number] [address] [place] [address] [place] Hematocrit (Bld) [Volume fraction] 25.1 % Low 36.0-46.0 [facility] Comment on above: Order Comment: Speci men Type: BLOOD SPECIMEN Ordering Facility: [facility] Address: [address] [place] [address] Performed By: #### 5 0190-8, 2275- #### [facility] CLIA [id number] [address] [place] [address] [place] Hemoglobin (Bld) [Mass/Vol] 7.1 g/dL Low 11.5-15.5 [facility] Comment on above: Order Comment: Speci men Type: BLOOD SPECIMEN Ordering Facility: [facility] Address: [address] [place] [address] Performed By: #### 5 0190-8, 2275-4 #### [facility] CLIA [id number] [address] [place] [address] [place] Immature granulocytes (Bld) [#/Vol] 10*3/uL Normal <0.10 [facility] Comment on above: Order Comment: Speci men Type: BLOOD SPECIMEN Ordering Facility: [facility] Address: [address] [place] [address] Performed By: #### 5 0190-8, 2275-4 #### [facility] CLIA [id number] [address] [place] [address] [place] Immature granulocytes/100 WBC (Bld) 0.3 % Normal [facility] Comment on above: Order Comment: Speci men Type: BLOOD SPECIMEN Ordering Facility: [facility] Address: [address] [place] [address] Performed By: #### 5 0190-8, 2275-4 #### [facility] CLIA [id number] [address] [place] [address] [place] Lymphocytes (Bld) [#/Vol] 1.12 10*3/uL Normal 1.00-4.00 [facility] Comment on above: Order Comment: Speci men Type: BLOOD SPECIMEN Ordering Facility: [facility] Address: [address] [place], [place] [address] Performed By: #### 5 0190-8, 2275- #### [facility] CLIA [id number] [address] [place] [address] [place] Lymphocytes/100 WBC (Bld) 34.6 % Normal [facility] Comment on above: Order Comment: Speci men Type: BLOOD SPECIMEN Ordering Facility: [facility] Address: [address] [place], [place] [address] Performed By: #### 5 0190-8, 2276-02 #### [facility] CLIA [id number] [address] [place] [address] [place] MCH (RBC) [Entitic mass] 19.2 pg Low 26.0-34.0 [facility] Comment on above: Order Comment: Speci men Type: BLOOD SPECIMEN Ordering Facility: [facility] Address: [address] [place], [place] [address] Performed By: #### 5 0190-8, 2276-02 #### [facility] CLIA [id number] [facility] [place] [address] [place] MCHC (RBC) [Mass/Vol] 28.3 g/dL Low 30.5-36.0 [facility] Comment on above: Order Comment: Speci men Type: BLOOD SPECIMEN Ordering Facility: [facility] Address: [address] [place], [place] [address] Performed By: #### 5 0190-8, 2276-02 #### [facility] CLIA [id number] [address] [place] [address] [place] MCV (RBC) [Entitic vol] 67.8 fL Low 80.0-100.0 [facility] Comment on above: Order Comment: Speci men Type: BLOOD SPECIMEN Ordering Facility: [facility] Address: [address] [place], [place] [address] Performed By: #### 5 0190-8, 2276-02 #### [facility] CLIA [id number] [address] [place] [address] [place] Monocytes (Bld) [#/Vol] 0.49 10*3/uL Normal <0.87 [facility] Comment on above: Order Comment: Speci men Type: BLOOD SPECIMEN Ordering Facility: [facility] Address: [address] Performed By: #### 5 0190-8, 2275- #### [facility] CLIA [id number] [address] [place] [address] [place] Monocytes/100 WBC (Bld) 15.1 % Normal [facility] Comment on above: Order Comment: Speci men Type: BLOOD SPECIMEN Ordering Facility: [facility] Address: [address] Performed By: #### 5 0190-8, 2275- #### [facility] CLIA [id number] [address] [place] [address] [place] Neutrophils (Bld) [#/Vol] 1.43 10*3/uL Low 1.45-7.50 [facility] Comment on above: Order Comment: Speci men Type: BLOOD SPECIMEN Ordering Facility: [facility] Address: [address] Performed By: #### 5 0190-8, 2276-02 #### [facility] CLIA [id number] [address] [place] [address] [place] Neutrophils/100 WBC (Bld) 44.2 % Normal [facility] Comment on above: Order Comment: Speci men Type: BLOOD SPECIMEN Ordering Facility: [facility] Address: [address] Performed By: #### 5 0190-8, 2275- #### [facility] CLIA [id number] [address] [place] [address] [place] Nucleated RBC (Bld) [#/Vol] 10*3/uL Normal <0.01 [facility] Comment on above: Order Comment: Speci men Type: BLOOD SPECIMEN Ordering Facility: [facility] Address: [address] Performed By: #### 5 0190-8, 2275- #### [facility] CLIA [id number] [address] [place] [address] [place] Nucleated RBC/100 WBC (Bld) [Ratio] 0.0 /100 WBC Normal [facility] Comment on above: Order Comment: Speci men Type: BLOOD SPECIMEN Ordering Facility: [facility] Address: [address] [place], [place] [address] Performed By: #### 5 0190-8, 2275- #### [facility] CLIA [id number] [address] [place] [address] [place] Platelet mean volume (Bld) [Entitic vol] 9.8 fL Normal 9.0-12.7 [facility] Comment on above: Order Comment: Speci men Type: BLOOD SPECIMEN Ordering Facility: [facility] Address: [address] [place], [place] [address] Performed By: #### 5 0190-8, 2276-02 #### [facility] CLIA [id number] [address] [place] [address] [place] Platelets (Bld) [#/Vol] 304 10*3/uL Normal 150-400 [facility] Comment on above: Order Comment: Speci men Type: BLOOD SPECIMEN Ordering Facility: [facility] Address: [address] [place] [id number] Performed By: #### 5 0190-8, 2276-02 #### [facility] CLIA [id number] [address] [place] [address] [place] RBC (Bld) [#/Vol] 3.70 10*6/uL Low 3.90-5.20 [facility] Comment on above: Order Comment: Speci men Type: BLOOD SPECIMEN Ordering Facility: [facility] Address: [address] [place], [place] [address] Performed By: #### 5 0190-8, 2275-4 #### [facility] CLIA [id number] [address] [facility] [place] [place] [address] [place] WBC (Bld) [#/Vol] 3.24 10*3/uL Low 3.70-11.00 [facility] Comment on above: Order Comment: Speci men Type: BLOOD SPECIMEN Ordering Facility: [facility] Address: [address] [place] [address] Performed By: #### 5 0190-8, 2276-4 #### [facility] CLIA [id number] [address] [place] [address] [place] Basophils (Bld) [#/Vol] 0.03 10*3/uL <0.11 k/uL [facility] Basophils/100 WBC (Bld) 0.9 % [facility] Differential cell count method Nom (Bld) Auto [facility] Eosinophils (Bld) [#/Vol] 0.16 10*3/uL <0.46 k/uL [facility] Eosinophils/100 WBC (Bld) 4.9 % [facility] Erythrocyte distribution width (RBC) [Ratio] 19.9 % High 11.5 - 15.0 % [facility] Hematocrit (Bld) [Volume fraction] 25.1 % Low 36.0 - 46.0 % [facility] Hemoglobin (Bld) [Mass/Vol] 7.1 g/dL Low 11.5 - 15.5 g/dL [facility] Immature granulocytes (Bld) [#/Vol] <0.10 k/uL [facility] Immature granulocytes/100 WBC (Bld) 0.3 % [facility] Lymphocytes (Bld) [#/Vol] 1.12 10*3/uL 1.00 - 4.00 k/uL [facility] Lymphocytes/100 WBC (Bld) 34.6 % [facility] MCH (RBC) [Entitic mass] 19.2 pg Low 26.0 - 34.0 pg [facility] MCHC (RBC) [Mass/Vol] 28.3 g/dL Low 30.5 - 36.0 g/dL [facility] MCV (RBC) [Entitic vol] 67.8 fL Low 80.0 - 100.0 fL [facility] Monocytes (Bld) [#/Vol] 0.49 10*3/uL <0.87 k/uL [facility] Monocytes/100 WBC (Bld) 15.1 % [facility] Neutrophils (Bld) [#/Vol] 1.43 10*3/uL Low 1.45 - 7.50 k/uL [facility] Neutrophils/100 WBC (Bld) 44.2 % [facility] Nucleated RBC (Bld) [#/Vol] <0.01 k/uL [facility] Nucleated RBC/100 WBC (Bld) [Ratio] 0.0 /100 WBC [facility] Platelet mean volume (Bld) [Entitic vol] 9.8 fL 9.0 - 12.7 fL [facility] Platelets (Bld) [#/Vol] 304 10*3/uL 150 - 400 k/uL [facility] RBC (Bld) [#/Vol] 3.70 10*6/uL Low 3.90 - 5.2 0 m/uL [facility] WBC (Bld) [#/Vol] 3.24 10*3/uL Low 3.70 - 11. 00 k/uL [facility] CNOVon 07-04-2023 CNOV Office Visit (HOMERO ) ISABEL WADDELL ([id number]) 1960 F Date Time Provider Department 07/04/23 9:00 AM [place] During your visit today, we recorded the following information about you: Temperature Pulse Blood pressure Weight 97.6 degrees 73/minute 139/68 66.5 kg Height 1.676 m [place] DO 07/14/2023 11:36 AM Signed [facility]GERY New Patient Visit July 01, 2023 Chief Complaint: Radiation proctitis History of Present Illness: Isabelkofi Waddell is a 63 year old year old female with history of recurrent endometrial adenocarcinoma s/p robotic hysterectomy, Bilateral salpingo-oophorectomy, cystostomy repair 07/2019 c/b recurrence in 05/2021. Patient underwent radiation. She has developed rectal bleeding and underwent colonoscopy in 09/2022 which showed evidence of colonic angiectasia which was treated with argon plasma. Patient continues to have rectal bleeding. Patient is being evaluated for radiation proctitis. Patient denies any nausea, vomiting, abdominal pain. Patient reports regular bowel movements. 03/05/23 Juan Manuel Medina, DATABASE ADMINISTRATOR: Isabel Waddell is a 62 year old female who presents for Rectal Bleeding. She admits to having consistent rectal bleeding for over the past year. She does have a history of endometrial cancer with radiation. She had a colonoscopy in 10/08 for evaluation of her bleeding that revealed multiple bleeding colonic angiectasia's which was treated with argon plasma. Patient states that her bleeding did not improve after this. She also had stool in the entire colon. She states that she did not complete her prep. She denies constipation. Colonoscopy - 09/26/22 - Preparation of the colon was fair. - Multiple bleeding colonic angioectasias. Treated with argon plasma coagulation (APC). - Stool in the entire examined colon. - No specimens collected. CT ABD/PEL - 12/13/21 1. 5 mm hepatic hypodensity, stable from the prior examination of 06/04/2021, likely related to a small cyst. 2. 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 3. No CT evidence for metastatic disease to the abdomen or pelvis. 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, diagnosed due to prolonged amenorrhea Thyroid disease PAST SURGICAL HISTORY Procedure Laterality Date ANESTH, SECTION x3 ARTHROSCOPY KNEE DIAGNOSTIC W/WO SYNOVIAL BX SPX Left 2016 Arthroscopy, knee BREAST SURGERY HX Right 1983 breast cysts COLONOSCOPY 2003 COLONOSCOPY SCREENING 09/2022 DILATION AND CURETTAGE DXAND/THER NONOBSTETRIC 06/29/2019 Dilation AND curettage HYSTERECTOMY HX 08/12/2019 Robotic TLH, BSO, cystotomy repair KNEE ARTHROSCOPY Right x3 LAPAROSCOPY SURG CHOLECYSTECTOMY ~age 40s Cholecystectomy, lap RECONSTRUCT FINGER Right 2019 R thumb socket REMOVAL GALLBLADDER REMOVE PITUITARY TUMOR W/ SCOPE 1982 SHOULDER SURGERY HX Bilateral ~2014 Current Outpatient Medications Medication Sig Dispense Refill albuterol HFA (PROVENTIL HFA, VENTOLIN HFA) 90 mcg/actuation inhaler INHALE 2 PUFFS EVERY 4 HOURS NEEDED FOR COUGH OR SHORTNESS OF BREATH FOR 30 DAYS ADVAIR DISKUS 250-50 mcg/dose inhaler INHALE 1 PUFF TWICE A DAY FOR 30 DAYS dicyclomine (BENTYL) 10 mg capsule Take 1 capsule by mouth before meals and at bedtime. As needed. carvedilol (COREG) 25 mg tablet Take 1 tablet by mouth twice daily. ascorbic acid, vitamin C, (VITAMIN C) 500 mg tablet Take 500 mg by mouth once daily. iv contrast (will be provided with radiology test) CT Chest ABD/PEL-Inject, intravenously, once for 1 dose.No IV access, insert saline lock prior to the beginning of sedation, infusion, injection of imaging exam. Discontinue saline lock post exam. If Pt. has a central line or IVAD, may access for administration according to line specific nursing protocol. Once exam is complete flush line and de-access according to line specific nursing protocol in the CT contrast administration guidelines link. (Patient not taking: Reported on 06/27/2023) 1 Each 0 enteric contrast (will be provided with radiology test) For CT CHESTABD/PEL W IVCON Routine order Administer, As Directed One Time Only, via Oral, Rectal, both Oral and Rectal, Enteric Tube, Stoma or Indwelling Catheter, Enteric Contrast as designated per enteric contrast guidelines (Patient not taking: Reported on 06/27/2023) 1 Each 0 TURMERIC ORAL Take 1,000 mg by mouth once daily. venlafaxine ER (EFFEXOR XR) 150 mg 24 hr capsule Take 150 mg by mouth daily at bedtime. [id number]-FISH OIL-L.CASEI ORAL Take by mouth once daily. Lactobac no.41/Bifidobact no.7 (PROBIOTIC (more content not included)... Normal [facility] Comprehensive metabolic 2000 panelon 07-04-2023 Albumin [Mass/Vol] 4.0 g/dL Normal 3.9-4.9 [facility] Comment on above: Order Comment: Speci men Type: BLOOD SPECIMEN Ordering Facility: [facility] Address: [address] [place], [place] [address] [address] Performed By: #### 2 6902-8 #### [facility] CLIA [id number] [address] [place] [address] [place] ALP [Catalytic activity/Vol] 161 U/L High 34-123 [facility] Comment on above: Order Comment: Speci men Type: BLOOD SPECIMEN Ordering Facility: [facility] Address: [address] [place] [place] [address] Performed By: #### 2 4323-8 #### [facility] CLIA [id number] [address] [place] [address] [place] ALT [Catalytic activity/Vol] 47 U/L High 7-38 [facility] Comment on above: Order Comment: Speci men Type: BLOOD SPECIMEN Ordering Facility: [facility] Address: [address] [place] [address] Performed By: #### 2 4323-8 #### [facility] CLIA [id number] [address] [place] [address] [place] Anion gap [Moles/Vol] 11 mmol/L Normal 9-18 [facility] Comment on above: Order Comment: Speci men Type: BLOOD SPECIMEN Ordering Facility: [facility] Address: [address] [place], [place] [address] Performed By: #### 2 4323-8 #### [facility] CLIA [id number] [address] [place] [address] [place] AST [Catalytic activity/Vol] 41 U/L High 13-35 [facility] Comment on above: Order Comment: Speci men Type: BLOOD SPECIMEN Ordering Facility: [facility] Address: [address] [place], [place] [address] Performed By: #### 2 4323-8 #### [facility] CLIA [id number] [address] [place] [address] [place] Bilirubin [Mass/Vol] 0.3 mg/dL Normal 0.2-1.3 [facility] Comment on above: Order Comment: Speci men Type: BLOOD SPECIMEN Ordering Facility: [facility] Address: [address] Performed By: #### 2 4323-8 #### [facility] CLIA [id number] [address] [place] [address] [place] Calcium [Mass/Vol] 9.5 mg/dL Normal 8.5-10.2 [facility] Comment on above: Order Comment: Speci men Type: BLOOD SPECIMEN Ordering Facility: [facility] Address: [address] Performed By: #### 2 4323-8 #### [facility] CLIA [id number] [address] [place] [address] [place] Chloride [Moles/Vol] 105 mmol/L Normal 97-105 [facility] Comment on above: Order Comment: Speci men Type: BLOOD SPECIMEN Ordering Facility: [facility] Address: [address] Performed By: #### 2 4323-8 #### [facility] CLIA [id number] [address] [place] [address] [place] CO2 [Moles/Vol] 26 mmol/L Normal 22-30 [facility] Comment on above: Order Comment: Speci men Type: BLOOD SPECIMEN Ordering Facility: [facility] Address: [address] Performed By: #### 2 4323-8 #### [facility] CLIA [id number] [address] [place] [address] [place] Creatinine [Mass/Vol] 0.74 mg/dL Normal 0.58-0.96 [facility] Comment on above: Order Comment: Speci men Type: BLOOD SPECIMEN Ordering Facility: [facility] Address: [address] Performed By: #### 2 4323-8 #### [facility] CLIA [id number] [facility] [place] [address] [place] Creatinine and Glomerular filtration rate.predicted panel (S/P/Bld) 91 mL/min/1.73m??? Normal >=60 [facility] Comment on above: Order Comment: Adonis mayo Type: BLOOD SPECIMEN Ordering Facility: [facility] Address: [address] [place] [place] [address] Result Comment: Kae mated Glomerular Filtration Rate (eGFR) is calculated using the 2020 CKD-EPI creatinine equation. This equation utilizes serum creatinine, sex, and age as parameters. The creatinine assay has traceable calibration to isotope dilution-mass spectrometry. Refer to KDIGO guidelines for clinical interpretation. In patients with unstable renal function, e.g. those with acute kidney injury, the eGFR may not accurately reflect actual GFR. Performed By: #### 2 4323-8 #### [facility] CLIA [id number] [address] [place] [address] [place] [facility] Glucose [Mass/Vol] 104 mg/dL High 74-99 [facility] Comment on above: Order Comment: Adonis mayo Type: BLOOD SPECIMEN Ordering Facility: [facility] Address: [address] [place] [address] Result Comment: The [place] Diabetes Association (ADA) provides guidance for cutoff values for fasting glucose and random glucose. The ADA defines fasting as no caloric intake for at least 8 hours. Fasting plasma glucose results between 100 to 125 mg/dL indicate increased risk for diabetes (prediabetes). Fasting plasma glucose results greater than or equal to 126 mg/dL meet the criteria for diagnosis of diabetes. In the absence of unequivocal hyperglycemia, results should be confirmed by repeat testing. In a patient with classic symptoms of hyperglycemia or hyperglycemic crisis, random plasma glucose results greater than or equal to 200 mg/dL meet the criteria for diagnosis of diabetes. Reference: Standards of Medical Care in Diabetes 2016, [place] [employer] Association. Diabetes Care. 2016.39(Suppl 1). Performed By: #### 2 4323-8 #### [facility] CLIA [id number] [address] [place] [address] [place] Potassium [Moles/Vol] 4.5 mmol/L Normal 3.7-5.1 [facility] Comment on above: Order Comment: Speci men Type: BLOOD SPECIMEN Ordering Facility: [facility] Address: [address] [place] [address] Performed By: #### 2 4323-8 #### [facility] CLIA [id number] [address] [place] [address] [place] Protein [Mass/Vol] 6.3 g/dL Normal 6.3-8.0 [facility] Comment on above: Order Comment: Speci men Type: BLOOD SPECIMEN Ordering Facility: [facility] Address: [address] [place] [address] Performed By: #### 2 4323-8 #### [facility] CLIA [id number] [address] [place] [address] [place] Sodium [Moles/Vol] 142 mmol/L Normal 136-144 [facility] Comment on above: Order Comment: Speci men Type: BLOOD SPECIMEN Ordering Facility: [facility] Address: [address] [place] [address] Performed By: #### 2 4323-8 #### [facility] CLIA [id number] [address] [place] [address] [place] Urea nitrogen [Mass/Vol] 16 mg/dL Normal 7-21 [facility] Comment on above: Order Comment: Speci men Type: BLOOD SPECIMEN Ordering Facility: [facility] Address: [address] [place] [address] Performed By: #### 2 4323-8 #### [facility] CLIA [id number] [address] [place] [address] [place] HISTORY PHYSICALon 3 HISTORY PHYSICAL HNO ID: [id number] Author: [place], DO Service: ? Author Type: Physician Type: HANDP Filed: 07/14/2023 11:36 AM Note Text: COLORECTAL SURGERY New Patient Visit July 01, 2023 Chief Complaint: Radiation proctitis History of Present Illness: Isabel Waddell is a 63 year old year old female with history of recurrent endometrial adenocarcinoma s/p robotic hysterectomy, Bilateral salpingo-oophorectomy, cystostomy repair 07/2019 c/b recurrence in 05/2021. Patient underwent radiation. She has developed rectal bleeding and underwent colonoscopy in 09/2022 which showed evidence of colonic angiectasia which was treated with argon plasma. Patient continues to have rectal bleeding. Patient is being evaluated for radiation proctitis. Patient denies any nausea, vomiting, abdominal pain. Patient reports regular bowel movements. 03/05/23 Juan Manuel Medina, DATABASE ADMINISTRATOR: Isabel Waddell is a 62 year old female who presents for Rectal Bleeding. She admits to having consistent rectal bleeding for over the past year. She does have a history of endometrial cancer with radiation. She had a colonoscopy in 10/08 for evaluation of her bleeding that revealed multiple bleeding colonic angiectasia's which was treated with argon plasma. Patient states that her bleeding did not improve after this. She also had stool in the entire colon. She states that she did not complete her prep. She denies constipation. Colonoscopy - 09/26/22 - Preparation of the colon was fair. - Multiple bleeding colonic angioectasias. Treated with argon plasma coagulation (APC). - Stool in the entire examined colon. - No specimens collected. CT ABD/PEL - 12/13/21 1. 5 mm hepatic hypodensity, stable from the prior examination of 06/04/2021, likely related to a small cyst. 2. 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 3. No CT evidence for metastatic disease to the abdomen or pelvis. 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, diagnosed due to prolonged amenorrhea Thyroid disease PAST SURGICAL HISTORY Procedure Laterality Date ANESTH, SECTION x3 ARTHROSCOPY KNEE DIAGNOSTIC W/WO SYNOVIAL BX SPX Left 2016 Arthroscopy, knee BREAST SURGERY HX Right 1983 breast cysts COLONOSCOPY 2003 COLONOSCOPY SCREENING 09/2022 DILATION AND CURETTAGE DXAND/THER NONOBSTETRIC 06/29/2019 Dilation AND curettage HYSTERECTOMY HX 08/12/2019 Robotic TLH, BSO, cystotomy repair KNEE ARTHROSCOPY Right x3 LAPAROSCOPY SURG CHOLECYSTECTOMY ~age 40s Cholecystectomy, lap RECONSTRUCT FINGER Right 2019 R thumb socket REMOVAL GALLBLADDER REMOVE PITUITARY TUMOR W/ SCOPE 1981 SHOULDER SURGERY HX Bilateral ~2012, 2014 Current Outpatient Medications Medication Sig Dispense Refill albuterol HFA (PROVENTIL HFA, VENTOLIN HFA) 90 mcg/actuation inhaler INHALE 2 PUFFS EVERY 4 HOURS NEEDED FOR COUGH OR SHORTNESS OF BREATH FOR 30 DAYS ADVAIR DISKUS 250-50 mcg/dose inhaler INHALE 1 PUFF TWICE A DAY FOR 30 DAYS dicyclomine (BENTYL) 10 mg capsule Take 1 capsule by mouth before meals and at bedtime. As needed. carvedilol (COREG) 25 mg tablet Take 1 tablet by mouth twice daily. ascorbic acid, vitamin C, (VITAMIN C) 500 mg tablet Take 500 mg by mouth once daily. iv contrast (will be provided with radiology test) CT Chest ABD/PEL-Inject, intravenously, once for 1 dose.No IV access, insert saline lock prior to the beginning of sedation, infusion, injection of imaging exam. Discontinue saline lock post exam. If Pt. has a central line or IVAD, may access for administration according to line specific nursing protocol. Once exam is complete flush line and de-access according to line specific nursing protocol in the CT contrast administration guidelines link. (Patient not taking: Reported on 06/27/2023) 1 Each 0 enteric contrast (will be provided with radiology test) For CT CHESTABD/PEL W IVCON Routine order Administer, As Directed One Time Only, via Oral, Rectal, both Oral and Rectal, Enteric Tube, Stoma or Indwelling Catheter, Enteric Contrast as designated per enteric contrast guidelines (Patient not taking: Reported on 06/27/2023) 1 Each 0 TURMERIC ORAL Take 1,000 mg by mouth once daily. venlafaxine ER (EFFEXOR XR) 150 mg 24 hr capsule Take 150 mg by mouth daily at bedtime. ROCY6-VBK-MOQ-FISH OIL-L.CASEI ORAL Take by mouth once daily. Lactobac no.41/Bifidobact no.7 (PROBIOTIC-10 ORAL) Take by mouth once daily. MULTIVITAMIN TAB Take one(1) tablet daily. 0 B COMPLEX VITAMINS CAP Take one(1) capsule daily. 0 CALCIUM CARBONATE-VIT D3-MINERALS 600 MG-400 UNIT TAB Take 1 tablet by mouth twice daily. 0 Current Facility-Administered Medications Medication (more content not included)... Normal [facility] CNOVon 06-27-2023 CNOV Office Visit (PMNA11 ) ISABEL WADDELL ([id number]) 1960 F Date Time Provider Department 06/27/23 10:30 AM HEIDI MENARD PMNA11 During your visit today, we recorded the following information about you: Temperature Pulse Respiration Blood pressure 97.4 degrees 70/minute 16/minute 141/76 Weight 69.4 kg Heidi Menard MD 06/27/2023 11:47 AM Addendum Ms. Waddell is a 63 year old female who presents to the [facility] [place]. Consultation requested by Self. HPI: 63 year old female with endometrial cancer (2019 Robotic total hysterectomy, bilateral salpingo-oophorectomy, cystotomy/cystotomy repair and cystoscopy , with recurrence s/p radiation currently reports remission), rectal bleeding concerning for radiation proctitis Reports being well from a breathing standpoint until January 2023 ?bronchitis: shortness of breath, cough (dry cough), fever (low grade) for 2 - 3 weeks, visited urgent care was given Abx, prednisone (10 days) and advair Shortness of breath - at baseline is able to walk (unlimited), exercises 2-3 times/week, could ride her bike. Since January, currently limited to within the house, SOB on flat ground, unable to climb stairs. Currently doesn't report cough. Was supposed to get PFTs - was unable to complete them due to shortness of breath, told she has asthma and was put on advair and albuterol. No h/o blood clots, no FH of clots Never smoker No h/o joint pains, raynauds, skin rashes, mouth ulcers, photophobia Respiratory ROS: GARSIA: as above Orthopnea: none PND: none Pedal Edema: none Weight: at baseline Cough: present in January, currently intermittent dry cough occasionally Nocturnal awakenings: none Sputum: none GERD: none ANDREZ: none Home O2: no Review of Systems: GEN: No fevers/chills, night sweats, or weight changes HENT: No rhinorrhea, pharyngitis, sinus drainage, congestion, or oral ulcers EYES: No sudden vision changes CV: No chest pain, palpitations RESP: As above GI: No nausea/vomiting/consti pation/diarrhea, no acid reflux : No dysuria, no hematuria MSK: No joint swelling NEURO: No sudden weakness or numbness SKIN: No rash PSYCH: No hallucinations Past Medical History: 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, diagnosed due to prolonged amenorrhea Thyroid disease Past Surgical History: PAST SURGICAL HISTORY Procedure Laterality Date ANESTH, SECTION x3 ARTHROSCOPY KNEE DIAGNOSTIC W/WO SYNOVIAL BX SPX Left 2017 Arthroscopy, knee BREAST SURGERY HX Right 1984 breast cysts COLONOSCOPY 2003 DILATION AND CURETTAGE DXAND/THER NONOBSTETRIC 06/29/2019 Dilation AND curettage HYSTERECTOMY HX 08/12/2019 Robotic TLH, BSO, cystotomy repair KNEE ARTHROSCOPY Right x3 LAPAROSCOPY SURG CHOLECYSTECTOMY ~age 40s Cholecystectomy, lap RECONSTRUCT FINGER Right 2020 R thumb socket REMOVE PITUITARY TUMOR W/ SCOPE 1982 SHOULDER SURGERY HX Bilateral ~2012, 2014 Work and Social Histories: Social History Tobacco Use Smoking status: Never Smokeless tobacco: Never Vaping Use Vaping Use: Never used Substance Use Topics Alcohol use: Yes Comment: 3 drinks per month Drug use: Never Occupation/Exposures: 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 Silica: No significant exposure. [place]: No significant exposure. Organic HP antigen: No significant exposure. Inorganic HP antigen: No significant exposure. Mold: Maybe in the basement Tree pollen: No significant exposure. Radiation: Radiation for endometrial cancer - local Fumes: No significant exposure. Metal dust: No significant exposure. Beryllium: No significant exposure. Dust: No significant exposure. Pets: No pets Family History: FAMILY HISTORY Problem Relation Age of Onset Thyroid Mother Thyroid Maternal Grandmother Allergies: Patient has no known allergies. Outpatient Medications: dicyclomine (BENTYL) 10 mg capsule Take 1 capsule by mouth before meals and at bedtime. As needed. carvedilol (COREG) 25 mg tablet Take 1 tablet by mouth twice daily. ascorbic acid, vitamin C, (VITAMIN C) 500 mg tablet Take 500 mg by mouth once daily. iv contrast (will be provided with radiology test) CT Chest ABD/PEL-Inject, intravenously, once for 1 dose.No IV access, insert saline lock prior to the beginning of sedation, infusion, injection of imaging exam. Discontinue saline lock post exam. If Pt. has a central line or IVAD, may access for administration according to line specific nursing protocol. Once exam is complete flush line and de-a (more content not included)... Normal [facility] HEMOGLOBINon 03-21-2023 Hemoglobin (Bld) [Mass/Vol] 9.1 g/dL Critically low 12.0-16.0 [facility] Comment on above: Performed By: #### H GB ####[facility] [id number] [place], [place] [address]. Cheryl Monzon XR CHEST 2 Von 03-10-2023 XR CHEST 2 V EXAMINATION: XR CHES T 2 V HISTORY: Dyspnea COMPARISON: CT abdomen pelvis 10/10/2018 FINDINGS: LUNGS: Hyper expanded lungs suggestive COPD. Chronic calcified granuloma within right lung base. VASCULATURE: No increased pulmonary vasculature. PLEURA: No pneumothorax, effusion, or pleural thickening. CARDIAC: No cardiomegaly or cardiac silhouette abnormality. MEDIASTINUM: No visible mass or adenopathy. BONES: No fracture or visible bone lesion. OTHER: Negative. IMPRESSION: 1. No acute cardiopulmonary process. 2. Hyperexpanded lungs. Electronically authenticated by: HENRY LOCK Date: 2023-03-10 13:57 Normal [facility] CNOVon 03-05-2023 CNOV Office Visit (GASTLN ) ISABEL WADDELL ([id number]) 1960 F Date Time Provider Department 03/05/23 9:40 AM JUAN MANUEL MEDINA During your visit today, we recorded the following information about you: Pulse Blood pressure Weight Height 85/minute 152/90 70.2 kg 1.676 m Juan Manuel Medina APRN.CNP 03/05/2023 11:00 AM Signed Consultation requested by Dr. Ernesto Chacko for an opinion regarding Rectal Bleeding. My final recommendations will be communicated back to the requesting physician by way of shared medical record or fax. REASON FOR VISIT: Rectal Bleeding HPI: Isabel Waddell is a 62 year old female who presents for Rectal Bleeding. She admits to having consistent rectal bleeding for over the past year. She does have a history of endometrial cancer with radiation. She had a colonoscopy in 10/08 for evaluation of her bleeding that revealed multiple bleeding colonic angiectasia's which was treated with argon plasma. Patient states that her bleeding did not improve after this. She also had stool in the entire colon. She states that she did not complete her prep. She denies constipation. Past Clinical Work-Up: Colonoscopy - 09/26/22 - Preparation of the colon was fair. - Multiple bleeding colonic angioectasias. Treated with argon plasma coagulation (APC). - Stool in the entire examined colon. - No specimens collected. CT ABD/PEL - 12/13/21 1. 5 mm hepatic hypodensity, stable from the prior examination of 06/04/2021, likely related to a small cyst. 2. 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 3. No CT evidence for metastatic disease to the abdomen or pelvis. Recent Labs Component Latest Ref Rng AND Units 01/03/2023 WBC 3.70 - 11.00 k/uL 4.51 RBC 3.90 - 5.20 m/uL 3.83 (L) Hemoglobin 11.5 - 15.5 g/dL 11.5 Hematocrit 36.0 - 46.0 % 35.4 (L) MCV 80.0 - 100.0 fL 92.4 MCH 26.0 - 34.0 pg 30.0 MCHC 30.5 - 36.0 g/dL 32.5 RDW-CV 11.5 - 15.0 % 13.0 Platelet Count 150 - 400 k/uL 235 MPV 9.0 - 12.7 fL 9.9 Neut% % 56.2 Abs Neut (ANC) 1.45 - 7.50 k/uL 2.53 Lymph% % 29.0 Abs Lymph 1.00 - 4.00 k/uL 1.31 Hodgeman% % 11.1 Abs Hodgeman <0.87 k/uL 0.50 Eosin% % 3.1 Abs Eosin <0.46 k/uL 0.14 Baso% % 0.4 Abs Baso <0.11 k/uL <0.03 Immature Gran % % 0.2 IMMATURE GRANS (ABS) <0.10 k/uL <0.03 NRBC /100 WBC 0.0 Absolute nRBC <0.01 k/uL <0.01 DTYPE Auto Iron 41 - 186 ug/dL 77 TIBC 232 - 386 ug/dL 382 Transferrin Saturation 15.0 - 57.0 % 20.2 Ferritin 14.7 - 205.1 ng/mL 14.2 (L) ALLERGIES No Known Allergies 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, diagnosed due to prolonged amenorrhea Thyroid disease PAST SURGICAL HISTORY Procedure Laterality Date ANESTH, SECTION x3 ARTHROSCOPY KNEE DIAGNOSTIC W/WO SYNOVIAL BX SPX Left 2017 Arthroscopy, knee BREAST SURGERY HX Right 1984 breast cysts COLONOSCOPY 2003 DILATION AND CURETTAGE DXAND/THER NONOBSTETRIC 06/29/2019 Dilation AND curettage HYSTERECTOMY HX 08/12/2019 Robotic TLH, BSO, cystotomy repair KNEE ARTHROSCOPY Right x3 LAPAROSCOPY SURG CHOLECYSTECTOMY ~age 40s Cholecystectomy, lap RECONSTRUCT FINGER Right 2020 R thumb socket REMOVE PITUITARY TUMOR W/ SCOPE 1982 SHOULDER SURGERY HX Bilateral ~2012, 2014 FAMILY HISTORY Problem Relation Age of Onset Thyroid Mother Thyroid Maternal Grandmother Social History Tobacco Use Smoking status: Never Smokeless tobacco: Never Vaping Use Vaping Use: Never used Substance Use Topics Alcohol use: Yes Comment: 3 drinks per month Drug use: Never Current Outpatient Medications Medication Sig dicyclomine (BENTYL) 10 mg capsule Take 1 capsule by mouth before meals and at bedtime. As needed. carvedilol (COREG) 25 mg tablet Take 1 tablet by mouth twice daily. ascorbic acid, vitamin C, (VITAMIN C) 500 mg tablet Take 500 mg by mouth once daily. iv contrast (will be provided with radiology test) CT Chest ABD/PEL-Inject, intravenously, once for 1 dose.No IV access, insert saline lock prior to the beginning of sedation, infusion, injection of imaging exam. Discontinue saline lock post exam. If Pt. has a central line or IVAD, may access for administration according to line specific nursing protocol. Once exam is complete flush line and de-access according to line specific nursing protocol in the CT contrast administration guidelines link. (Patient not taking: Reported on 03/13/2022 ) enteric contrast (will be provided with radiology test) For CT CHESTABD/PEL W IVCON Routine order Administer, As Directed One Time Only, via Oral, Rectal, both Oral and Rectal, Enteric Tube, Stoma or Indwelling (more content not included)... Normal [facility] HISTORY PHYSICALon 3 HISTORY PHYSICAL HNO ID: [id number] Author: Juan Manuel Medina APRN.DATABASE ADMINISTRATOR Service: ? Author Type: Nurse Practitioner Type: HANDP Filed: 03/05/2023 11:00 AM Note Text: Consultation requested by Dr. Ernesto Chacko for an opinion regarding Rectal Bleeding. My final recommendations will be communicated back to the requesting physician by way of shared medical record or fax. REASON FOR VISIT: Rectal Bleeding HPI: Isabel Waddell is a 62 year old female who presents for Rectal Bleeding. She admits to having consistent rectal bleeding for over the past year. She does have a history of endometrial cancer with radiation. She had a colonoscopy in 10/08 for evaluation of her bleeding that revealed multiple bleeding colonic angiectasia's which was treated with argon plasma. Patient states that her bleeding did not improve after this. She also had stool in the entire colon. She states that she did not complete her prep. She denies constipation. Past Clinical Work-Up: Colonoscopy - 09/26/22 - Preparation of the colon was fair. - Multiple bleeding colonic angioectasias. Treated with argon plasma coagulation (APC). - Stool in the entire examined colon. - No specimens collected. CT ABD/PEL - 12/13/21 1. 5 mm hepatic hypodensity, stable from the prior examination of 06/04/2021, likely related to a small cyst. 2. 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 3. No CT evidence for metastatic disease to the abdomen or pelvis. Recent Labs Component Latest Ref Rng AND Units 01/03/2023 WBC 3.70 - 11.00 k/uL 4.51 RBC 3.90 - 5.20 m/uL 3.83 (L) Hemoglobin 11.5 - 15.5 g/dL 11.5 Hematocrit 36.0 - 46.0 % 35.4 (L) MCV 80.0 - 100.0 fL 92.4 MCH 26.0 - 34.0 pg 30.0 MCHC 30.5 - 36.0 g/dL 32.5 RDW-CV 11.5 - 15.0 % 13.0 Platelet Count 150 - 400 k/uL 235 MPV 9.0 - 12.7 fL 9.9 Neut% % 56.2 Abs Neut (ANC) 1.45 - 7.50 k/uL 2.53 Lymph% % 29.0 Abs Lymph 1.00 - 4.00 k/uL 1.31 Hodgeman% % 11.1 Abs Hodgeman <0.87 k/uL 0.50 Eosin% % 3.1 Abs Eosin <0.46 k/uL 0.14 Baso% % 0.4 Abs Baso <0.11 k/uL <0.03 Immature Gran % % 0.2 IMMATURE GRANS (ABS) <0.10 k/uL <0.03 NRBC /100 WBC 0.0 Absolute nRBC <0.01 k/uL <0.01 DTYPE Auto Iron 41 - 186 ug/dL 77 TIBC 232 - 386 ug/dL 382 Transferrin Saturation 15.0 - 57.0 % 20.2 Ferritin 14.7 - 205.1 ng/mL 14.2 (L) ALLERGIES No Known Allergies 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, diagnosed due to prolonged amenorrhea Thyroid disease PAST SURGICAL HISTORY Procedure Laterality Date ANESTH, SECTION x3 ARTHROSCOPY KNEE DIAGNOSTIC W/WO SYNOVIAL BX SPX Left 2016 Arthroscopy, knee BREAST SURGERY HX Right 1983 breast cysts COLONOSCOPY 2002 DILATION AND CURETTAGE DXAND/THER NONOBSTETRIC 06/29/2019 Dilation AND curettage HYSTERECTOMY HX 08/12/2019 Robotic TLH, BSO, cystotomy repair KNEE ARTHROSCOPY Right x3 LAPAROSCOPY SURG CHOLECYSTECTOMY ~age 40s Cholecystectomy, lap RECONSTRUCT FINGER Right 2019 R thumb socket REMOVE PITUITARY TUMOR W/ SCOPE 1982 SHOULDER SURGERY HX Bilateral ~2012, 2014 FAMILY HISTORY Problem Relation Age of Onset Thyroid Mother Thyroid Maternal Grandmother Social History Tobacco Use Smoking status: Never Smokeless tobacco: Never Vaping Use Vaping Use: Never used Substance Use Topics Alcohol use: Yes Comment: 3 drinks per month Drug use: Never Current Outpatient Medications Medication Sig dicyclomine (BENTYL) 10 mg capsule Take 1 capsule by mouth before meals and at bedtime. As needed. carvedilol (COREG) 25 mg tablet Take 1 tablet by mouth twice daily. ascorbic acid, vitamin C, (VITAMIN C) 500 mg tablet Take 500 mg by mouth once daily. iv contrast (will be provided with radiology test) CT Chest ABD/PEL-Inject, intravenously, once for 1 dose.No IV access, insert saline lock prior to the beginning of sedation, infusion, injection of imaging exam. Discontinue saline lock post exam. If Pt. has a central line or IVAD, may access for administration according to line specific nursing protocol. Once exam is complete flush line and de-access according to line specific nursing protocol in the CT contrast administration guidelines link. (Patient not taking: Reported on 03/13/2022 ) enteric contrast (will be provided with radiology test) For CT CHESTABD/PEL W IVCON Routine order Administer, As Directed One Time Only, via Oral, Rectal, both Oral and Rectal, Enteric Tube, Stoma or Indwelling Catheter, Enteric Contrast as designated per enteric contrast guidelines (Patient not taking: Reported on 03/13/2022 ) TURMERIC ORAL Take 1,000 mg by mouth once daily. venlafaxine ER (EFFEXOR XR) 150 mg 24 hr capsule Take 150 mg by mouth daily (more content not included)... Normal [facility] Covid-19 PCR (CVDTBH)on SARS-CoV-2 (COVID-19) RNA ANGELA+probe Ql (Unsp spec) Not detected Normal NOT DETECTED [facility] Comment on above: Result Comment: When diagnostic testing is negative, the possibility of a false negative should be considered in the context of a patient's recent exposures and the presence of clinical signs and symptoms consistent with SARS-CoV-2. This test is not yet approved or cleared by the [place] FDA. When there are no FDA-approved or cleared tests available, and other criteria are met, FDA can make tests available under an emergency access mechanism called an Emergency Use Authorization (EUA). The EUA for this test is supported by the [place] of Health and Human Service's declaration that circumstances exist to justify the emergency use of in vitro diagnostics for the detection and/or diagnosis of the virus that causes COVID-19. This EUA will remain in effect for the duration of the COVID-19 declaration justifying emergency of IVDs, unless it is terminated or revoked by the FDA (after which the test may no longer be used). Performed By: #### C VDTB #### [facility] [address] [place] [address] Dr. Cheryl Monzon INFLUENZA A AND B AGon [facility] SEE BELOW Normal [facility] Comment on above: Result Comment: Nega tive for Flu A protein angiten. Infection due to Flu A cannot be ruled out. Flu A angiten in the sample may be below the detection limit of the test. Performed By: #### I NFLUAB #### [facility] [address] [place] [address] Dr. [facility] SEE BELOW Normal [facility] Comment on above: Result Comment: Nega tive for Flu B protein antigen. Infection due to Flu B cannot be ruled out. Flu B antigen in the sample may be below the detection limit of the test. Performed By: #### I NFLUAB #### [facility] [address] [place] [address] Dr. Cheryl Monzon INFLUENZA A AG Negative Normal NEGATIVE SEE COMMENT [facility] Comment on above: Performed By: #### I NFLUAB #### [facility] [address] [place] [address] Dr. Cheryl Monzon INFLUENZA B AG Negative Normal NEGATIVE SEE COMMENT [facility] Comment on above: Performed By: #### I NFLUAB #### [facility] [address] [address] [address] Cheryl Monzon FERRITIN BLDon 01-04-2023 Ferritin [Mass/Vol] 14.2 ng/mL Low 14.7 - 2 05.1 ng/mL [facility] Iron and Iron binding capaci ty panelon 01-04-2023 Iron [Mass/Vol] 77 ug/dL 41 - 186 ug/dL [facility] Iron binding capacity [Mass/Vol] 382 ug/dL 232 - 386 ug/dL [facility] Iron/TIBC [Molar ratio] 20.2 % 15.0 - 57.0 % [facility] CBC W Auto Differential pane l (Bld)on 01-03-2023 Basophils (Bld) [#/Vol] 10*3/uL Normal <0.11 [facility] Comment on above: Order Comment: Speci men Type: BLOOD SPECIMENOrdering Facility: [facility] Address: [address] [address] Performed By: #### 5 7021-8 ####[facility] LABCLIA [id number] [address] [place] Basophils/100 WBC (Bld) 0.4 % Normal [facility] Comment on above: Order Comment: Speci men Type: BLOOD SPECIMENOrdering Facility: [facility] Address: [address] [address] Performed By: #### 5 7021-8 ####[facility] LABCLIA [id number] [place] [address] [place] Differential cell count method Nom (Bld) Auto Normal [facility] Comment on above: Order Comment: Speci men Type: BLOOD SPECIMENOrdering Facility: [facility] Address: [address] [address] Performed By: #### 5 7021-8 ####[facility] LABCLIA [id number] [place] [address] [place] Eosinophils (Bld) [#/Vol] 0.14 10*3/uL Normal <0.46 [facility] Comment on above: Order Comment: Speci men Type: BLOOD SPECIMENOrdering Facility: [facility] Address: [address] [place] [address] Performed By: #### 5 7021-8 ####[facility] LABCLIA [id number] [place] [address] [place] Eosinophils/100 WBC (Bld) 3.1 % Normal [facility] Comment on above: Order Comment: Speci men Type: BLOOD SPECIMENOrdering Facility: [facility] Address: [address] [place] [address] Performed By: #### 5 7021-8 ####[facility] LABCLIA [id number] [place] [address] [place] Erythrocyte distribution width (RBC) [Ratio] 13.0 % Normal 11.5-15.0 [facility] Comment on above: Order Comment: Speci men Type: BLOOD SPECIMENOrdering Facility: [facility] Address: [address] [place], [place] [id number] Performed By: #### 5 7021-8 ####[facility] LABCLIA [id number] [place] [address] [place] Hematocrit (Bld) [Volume fraction] 35.4 % Low 36.0-46.0 [facility] Comment on above: Order Comment: Speci men Type: BLOOD SPECIMENOrdering Facility: [facility] Address: [address] [place], [place] [address] Performed By: #### 5 7021-8 ####[facility] LABCLIA [id number] [place] [address] [place] Hemoglobin (Bld) [Mass/Vol] 11.5 g/dL Normal 11.5-15.5 [facility] Comment on above: Order Comment: Speci men Type: BLOOD SPECIMENOrdering Facility: [facility] Address: [address] Performed By: #### 5 7021-8 ####[facility] LABCLIA [id number] [place] [address] [place] Immature granulocytes (Bld) [#/Vol] 10*3/uL Normal <0.10 [facility] Comment on above: Order Comment: Speci men Type: BLOOD SPECIMENOrdering Facility: [facility] Address: [address] Performed By: #### 5 7021-8 ####[facility] LABCLIA [id number] [address] [place] Immature granulocytes/100 WBC (Bld) 0.2 % Normal [facility] Comment on above: Order Comment: Speci men Type: BLOOD SPECIMENOrdering Facility: [facility] Address: [address] [place], [place] [address] Performed By: #### 5 7021-8 ####[facility] LABCLIA [id number] [place] [address] [place] Lymphocytes (Bld) [#/Vol] 1.31 10*3/uL Normal 1.00-4.00 [facility] Comment on above: Order Comment: Speci men Type: BLOOD SPECIMENOrdering Facility: [facility] Address: [address] [place], [place] [address] Performed By: #### 5 7021-8 ####[facility] LABCLIA [id number] [place] [address] [place] Lymphocytes/100 WBC (Bld) 29.0 % Normal [facility] Comment on above: Order Comment: Speci men Type: BLOOD SPECIMENOrdering Facility: [facility] Address: [address] [place], [place] [address] Performed By: #### 5 7021-8 ####[facility] LABCLIA [id number] [address] MCH (RBC) [Entitic mass] 30.0 pg Normal 26.0-34.0 [facility] Comment on above: Order Comment: Speci men Type: BLOOD SPECIMENOrdering Facility: [facility] Address: [address] [place] [address] Performed By: #### 5 7021-8 ####[facility] LABCLIA [id number] [address] MCHC (RBC) [Mass/Vol] 32.5 g/dL Normal 30.5-36.0 [facility] Comment on above: Order Comment: Speci men Type: BLOOD SPECIMENOrdering Facility: [facility] Address: [address] [place] [address] Performed By: #### 5 7021-8 ####[facility] LABCLIA [id number] [address] MCV (RBC) [Entitic vol] 92.4 fL Normal 80.0-100.0 [facility] Comment on above: Order Comment: Speci men Type: BLOOD SPECIMENOrdering Facility: [facility] Address: [address] [place] [address] Performed By: #### 5 7021-8 ####[facility] LABCLIA [id number] [place] [address] [place] Monocytes (Bld) [#/Vol] 0.50 10*3/uL Normal <0.87 [facility] Comment on above: Order Comment: Speci men Type: BLOOD SPECIMENOrdering Facility: [facility] Address: [address] [place] [address] Performed By: #### 5 7021-8 ####[facility] LABCLIA [id number] [address] [place] Monocytes/100 WBC (Bld) 11.1 % Normal [facility] Comment on above: Order Comment: Speci men Type: BLOOD SPECIMENOrdering Facility: [facility] Address: [address] Performed By: #### 5 7021-8 ####[facility] LABCLIA [id number] [place] [address] [place] Neutrophils (Bld) [#/Vol] 2.53 10*3/uL Normal 1.45-7.50 [facility] Comment on above: Order Comment: Speci men Type: BLOOD SPECIMENOrdering Facility: [facility] Address: [address] [address] Performed By: #### 5 7021-8 ####[facility] LABCLIA [id number] [place] [address] [place] Neutrophils/100 WBC (Bld) 56.2 % Normal [facility] Comment on above: Order Comment: Speci men Type: BLOOD SPECIMENOrdering Facility: [facility] Address: [address] Performed By: #### 5 7021-8 ####[facility] LABCLIA [id number] [place] [address] [place] Nucleated RBC (Bld) [#/Vol] 10*3/uL Normal <0.01 [facility] Comment on above: Order Comment: Speci men Type: BLOOD SPECIMENOrdering Facility: [facility] Address: [address] Performed By: #### 5 7021-8 ####[facility] LABCLIA [id number] [place] [address] [place] Nucleated RBC/100 WBC (Bld) [Ratio] 0.0 /100 WBC Normal [facility] Comment on above: Order Comment: Speci men Type: BLOOD SPECIMENOrdering Facility: [facility] Address: [address] Performed By: #### 5 7021-8 ####[facility] LABCLIA [id number] [place] [address] [place] Platelet mean volume (Bld) [Entitic vol] 9.9 fL Normal 9.0-12.7 [facility] Comment on above: Order Comment: Speci men Type: BLOOD SPECIMENOrdering Facility: [facility] Address: [address] [place], [place] [address] Performed By: #### 5 7021-8 ####[facility] LABCLIA [id number] [place] [address] [place] Platelets (Bld) [#/Vol] 235 10*3/uL Normal 150-400 [facility] Comment on above: Order Comment: Speci men Type: BLOOD SPECIMENOrdering Facility: [facility] Address: [address] [place], [place] [address] Performed By: #### 5 7021-8 ####[facility] LABIA [id number] [place] [address] [place] RBC (Bld) [#/Vol] 3.83 10*6/uL Low 3.90-5.20 [facility] Comment on above: Order Comment: Speci men Type: BLOOD SPECIMENOrdering Facility: [facility] Address: [address] [place], [place] [address] Performed By: #### 5 7021-8 ####[facility] LABIA [id number] [place] [address] [place] WBC (Bld) [#/Vol] 4.51 10*3/uL Normal 3.70-11.00 [facility] Comment on above: Order Comment: Speci men Type: BLOOD SPECIMENOrdering Facility: [facility] Address: [address] [place], [place] [address] Performed By: #### 5 7021-8 ####[facility] LABCLIA [id number] [place] [address] [place] Basophils (Bld) [#/Vol] <0.11 k/uL [facility] Basophils/100 WBC (Bld) 0.4 % [facility] Differential cell count method Nom (Bld) Auto [facility] Eosinophils (Bld) [#/Vol] 0.14 10*3/uL <0.46 k/uL [facility] Eosinophils/100 WBC (Bld) 3.1 % [facility] Erythrocyte distribution width (RBC) [Ratio] 13.0 % 11.5 - 15.0 % [facility] Hematocrit (Bld) [Volume fraction] 35.4 % Low 36.0 - 46.0 % [facility] Hemoglobin (Bld) [Mass/Vol] 11.5 g/dL 11.5 - 15.5 g/dL [facility] Immature granulocytes (Bld) [#/Vol] <0.10 k/uL [facility] Immature granulocytes/100 WBC (Bld) 0.2 % [facility] Lymphocytes (Bld) [#/Vol] 1.31 10*3/uL 1.00 - 4.00 k/uL [facility] Lymphocytes/100 WBC (Bld) 29.0 % [facility] MCH (RBC) [Entitic mass] 30.0 pg 26.0 - 34.0 pg [facility] MCHC (RBC) [Mass/Vol] 32.5 g/dL 30.5 - 36.0 g/dL [facility] MCV (RBC) [Entitic vol] 92.4 fL 80.0 - 100.0 fL [facility] Monocytes (Bld) [#/Vol] 0.50 10*3/uL <0.87 k/uL [facility] Monocytes/100 WBC (Bld) 11.1 % [facility] Neutrophils (Bld) [#/Vol] 2.53 10*3/uL 1.45 - 7.50 k/uL [facility] Neutrophils/100 WBC (Bld) 56.2 % [facility] Nucleated RBC (Bld) [#/Vol] <0.01 k/uL [facility] Nucleated RBC/100 WBC (Bld) [Ratio] 0.0 /100 WBC [facility] Platelet mean volume (Bld) [Entitic vol] 9.9 fL 9.0 - 12.7 fL [facility] Platelets (Bld) [#/Vol] 235 10*3/uL 150 - 400 k/uL [facility] RBC (Bld) [#/Vol] 3.83 10*6/uL Low 3.90 - 5.2 0 m/uL [facility] WBC (Bld) [#/Vol] 4.51 10*3/uL 3.70 - 11. 00 k/uL [facility] CNOVSPon 01-03-2023 CNOVSP Visit (SP) Office (BHAVNA) ISABEL WADDELL ([id number]) 1960 F Date Time Provider Department 01/03/23 3:20 PM HENRY RAMOS During your visit today, we recorded the following information about you: Temperature Pulse Blood pressure Weight 97.8 degrees 95/minute 141/87 71.2 kg Height 1.676 m Henry Ramos MD 01/12/2023 11:27 PM Signed Gynecologic Oncology [facility] Follow up visit Date of service: 01/03/2023 PROBLEM/CC: Isabel Waddell presents for follow-up of endometrial cancer. HPI: Ms. 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 Vaginal biopsy performed on 05/25/2021 showed tumor cells diffusely and strongly positive for immunohistochemical stain for PAX 8 supporting a diagnosis of endometrioid adenocarcinoma Last office visit: 08/07/2022 ONCOLOGY HISTORY: PRIOR THERAPY AND DATE: 06/29/2019: [facility] - Endometrioid adenocarcinoma, FIGO 2; confirmed by [facility] Pathology 08/12/2019: Robotic total hysterectomy, bilateral salpingo-oophorectomy, cystotomy/cystotomy repair and cystoscopy PATHOLOGY: 08/12/2019- Moderately differentiated adenocarcinoma, endometrioid cell type with mucinous and squamous differentiation, FIGO grade 2. Neg LVSI, 13% [place] pT1a (IA): Tumor limited to endometrium or invades less than 1/2 of the myometrium 05/25/2021 Vaginal biopsy Vagina, biopsy - Consistent with endometrioid adenocarcinoma (see comment). GZ/ka 05/28/2021 COMMENT The tumor cells are diffusely and strongly positive for immunohistochemical stain for [place] 8, supporting the above diagnosis. The patient has a history of FIGO grade 2 endometrial endometrioid adenocarcinoma in 2019. 06/04/2021 CT Chest, Abdomen, Pelvis 1. No CT evidence of metastatic disease in the chest. No measurable vaginal recurrence. No metastatic disease. GENETIC TESTIN06/2019: Normal MMR expression HISTORIES: 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, diagnosed due to prolonged amenorrhea Thyroid disease PAST SURGICAL HISTORY Procedure Laterality Date ANESTH, SECTION x3 ARTHROSCOPY KNEE DIAGNOSTIC W/WO SYNOVIAL BX SPX Left 2017 Arthroscopy, knee BREAST SURGERY HX Right 1984 breast cysts COLONOSCOPY 2003 DILATION AND CURETTAGE DXAND/THER NONOBSTETRIC 06/29/2019 Dilation AND curettage HYSTERECTOMY HX 08/12/2019 Robotic TLH, BSO, cystotomy repair KNEE ARTHROSCOPY Right x3 LAPAROSCOPY SURG CHOLECYSTECTOMY ~age 40s Cholecystectomy, lap RECONSTRUCT FINGER Right 2020 R thumb socket REMOVE PITUITARY TUMOR W/ SCOPE 1982 SHOULDER SURGERY HX Bilateral ~2012, 2014 FAMILY HISTORY Problem Relation Age of Onset Thyroid Mother Thyroid Maternal Grandmother SOCIAL HISTORY: Social History Tobacco Use Smoking status: Never Smokeless tobacco: Never Vaping Use Vaping Use: Never used Substance Use Topics Alcohol use: Yes Comment: 3 drinks per month Drug use: Never Marital Status: PAST GYNECOLOGIC HISTORY: OB History T0 L3 SAB0 IAB0 Ectopic0 Multiple0 Live Births3 LMP: No LMP recorded. Patient has had a hysterectomy. HEALTH MAINTENANCE: Last pap: 2021 Last mammogram: 2021 Last colonoscopy: 09/26/2022 Impression: - Preparation of the colon was fair. - Multiple bleeding colonic angioectasias. Treated with argon plasma coagulation (APC). - Stool in the entire examined colon. - No specimens collected. ALLERGIES No Known Allergies MEDICATIONS dicyclomine (BENTYL) 10 mg capsule Take 1 capsule by mouth before meals and at bedtime. As needed. carvedilol (COREG) 25 mg tablet Take 1 tablet by mouth twice daily. ascorbic acid, vitamin C, (VITAMIN C) 500 mg tablet Take 500 mg by mouth once daily. iv contrast (will be provided with radiology test) CT Chest ABD/PEL-Inject, intravenously, once for 1 dose.No IV access, insert saline lock prior to the beginning of sedation, infusion, injection of imaging exam. Discontinue saline lock post exam. If Pt. has a central line or IVAD, may access for administration according to line specific nursing protocol. Once exam is complete flush line and de-access according to line specific nursing protocol in the CT contrast administration guidelines link. (Patient not taking: Reported on 03/13/2022 ) enteric contrast (will be provided with radiology test) For CT CHESTABD/PEL W IVCON Routine order Administer, As Directed One Time Only, via Oral, Rectal, both Oral and Rectal, Enteric Tube, Stoma or Indwelling Catheter, Enteric Contrast as designated per enteric contrast guidelines (Patient not taking: Reported on 03/13/2022 ) TURMERIC ORAL T (more content not included)... Normal [facility] Ferritin SerPl-mCncon 2022 Ferritin [Mass/Vol] 14.2 ng/mL Low 14.7-205.1 [facility] Comment on above: Order Comment: Adonis mayo Type: BLOOD SPECIMEN [facility] Address: [address] [place], [place] [id number] Performed By: #### 5 0190-8, 2276-02 #### [facility] CLIA [id number] [address] [place] [address] [place] Iron and Iron binding capaci ty panelon 01-03-2023 Iron [Mass/Vol] 77 ug/dL Normal 41-186 [facility] Comment on above: Order Comment: Adonis mayo Type: BLOOD SPECIMEN [facility] Address: [address] [place], [place] [address] Performed By: #### 5 0190-8, 2276-02 #### [facility] CLIA [id number] [address] [place] [address] [place] Iron binding capacity [Mass/Vol] 382 ug/dL Normal 232-386 [facility] Comment on above: Order Comment: Speci men Type: BLOOD SPECIMEN [facility] Address: [address] [id number] Performed By: #### 5 0190-8, 2276-02 #### [facility] CLIA [id number] [address] [facility] [address] OF [facility] Iron/TIBC [Molar ratio] 20.2 % Normal 15.0-57.0 [facility] Comment on above: Order Comment: Speci men Type: BLOOD SPECIMEN [facility] Address: [address] Performed By: #### 5 0190-8, 2276-02 #### [facility] CLIA [id number] [address] [place] Vaishnavi 12-25-2022 [place]OR[place] Telephone (BHAVNA) ISABEL WADDELL ([id number]) 1960 F Date Time Provider Department 12/25/22 ARETHA PENA During your visit today, we recorded the following information about you: Aretha Pena RN 12/25/2022 2:19 PM Signed ----- Message from Zazzy sent at 12/25/2022 12:04 PM EST ----- Regarding: Rachel Patient bleeding and clotting almost daily since Colonoscopy. September was the Colonoscopy. Concerned and would like to know if she should schedule an appointment. [phone] Aretha Pena RN 12/25/2022 2:24 PM Signed Call placed to pt. No answer. Detailed VM left explaining that she is due for follow up with Rachel anyway so he would like to see her in the office either 01/03 or 01/10 and to please call to schedule that appt. Also reiterated that a consult to GI was placed back in 07/2022 r/t rectal bleeding from radiation. She still needs to schedule that appt and be seen by them. Asked that she call the office with questions and to schedule. Aretha Pena RN Allergies As of Date: 12/25/2022 (No Known Allergies) Date Reviewed: 09/26/2022 Reviewed by: Francisca Gómez RN - Fully Assessed Reason for Visit: Returning Patient's Call [[phone]] Prescriptions as of 12/25/2022 - dicyclomine (BENTYL) 10 mg capsule Take 1 capsule by mouth before meals and at bedtime. As needed. - carvedilol (COREG) 25 mg tablet Take 1 tablet by mouth twice daily. - ascorbic acid, vitamin C, (VITAMIN C) 500 mg tablet Take 500 mg by mouth once daily. - iv contrast (will be provided with radiology test) CT Chest ABD/PEL-Inject, intravenously, once for 1 dose.No IV access, insert saline lock prior to the beginning of sedation, infusion, injection of imaging exam. Discontinue saline lock post exam. If Pt. has a central line or IVAD, may access for administration according to line specific nursing protocol. Once exam is complete flush line and de-access according to line specific nursing protocol in the CT contrast administration guidelines link. - enteric contrast (will be provided with radiology test) For CT CHESTABD/PEL W IVCON Routine order Administer, As Directed One Time Only, via Oral, Rectal, both Oral and Rectal, Enteric Tube, Stoma or Indwelling Catheter, Enteric Contrast as designated per enteric contrast guidelines - TURMERIC ORAL Take 1,000 mg by mouth once daily. - venlafaxine ER (EFFEXOR XR) 150 mg 24 hr capsule Take 150 mg by mouth daily at bedtime. - SIKC8-BSV-UYP-FISH OIL-L.CASEI ORAL Take by mouth once daily. - Lactobac no.41/Bifidobact no.7 (PROBIOTIC-10 ORAL) Take by mouth once daily. - MULTIVITAMIN TAB Take one(1) tablet daily. - B COMPLEX VITAMINS CAP Take one(1) capsule daily. - CALCIUM CARBONATE-VIT D3-MINERALS 600 MG-400 UNIT TAB Take 1 tablet by mouth twice daily. Problem List As Of Date 12/25/2022 Noted Resolved ABDOMINAL PAIN UNSPEC SITE [R10.9] 03/31/2008 Hypertension [I10] History of thyroid disease [Z86.39] 07/28/2019 Endometrial cancer (HCC) [C54.1] 09/23/2019 Prolactinoma (HCC) [D35.2] Encounter Status:Closed by ARETHA PENA on 12/25/22 Normal [facility] Covid-19 PCR (CVDTBH)on SARS-CoV-2 (COVID-19) RNA ANGELA+probe Ql (Unsp spec) Not detected Normal NOT DETECTED [facility] Comment on above: Result Comment: When diagnostic testing is negative, the possibility of a false negative should be considered in the context of a patient's recent exposures and the presence of clinical signs and symptoms consistent with SARS-CoV-2. This test is not yet approved or cleared by the [place] FDA. When there are no FDA-approved or cleared tests available, and other criteria are met, FDA can make tests available under an emergency access mechanism called an Emergency Use Authorization (EUA). The EUA for this test is supported by the [place] of Health and Human Service's declaration that circumstances exist to justify the emergency use of in vitro diagnostics for the detection and/or diagnosis of the virus that causes COVID-19. This EUA will remain in effect for the duration of the COVID-19 declaration justifying emergency of IVDs, unless it is terminated or revoked by the FDA (after which the test may no longer be used). Performed By: #### C VDTBH #### [facility] [address] [place] [address] Dr. Cheryl Monzon INFLUENZA A AND B AGon 11-19 [facility] SEE BELOW Normal [facility] Comment on above: Result Comment: Nega tive for Flu A protein angiten. Infection due to Flu A cannot be ruled out. Flu A angiten in the sample may be below the detection limit of the test. Performed By: #### I NFLUAB #### [facility] [address] [place] [address] Dr. Cheryl Monzon INFLUBNEGH SEE BELOW Normal [facility] Comment on above: Result Comment: Nega tive for Flu B protein antigen. Infection due to Flu B cannot be ruled out. Flu B antigen in the sample may be below the detection limit of the test. Performed By: #### I NFLUAB #### [facility] [address] [address] [address] Cheryl Monzon INFLUENZA A AG Negative Normal NEGATIVE SEE COMMENT [facility] Comment on above: Performed By: #### I NFLUAB #### [facility] [address] [address] [address] Cheryl Monzon INFLUENZA B AG Negative Normal NEGATIVE SEE COMMENT [facility] Comment on above: Performed By: #### I NFLUAB #### [facility] [address] [place] [address] Dr. Cheryl Monzon MG MAMM SCREEN 3D RAGHU CADon 10-04-2022 MG MAMM SCREEN 3D RAGHU CAD Patient: ISABEL WADDELL Exam Date: 10/04/2022 : 1960 Gender:F Ordering : DR ROLAND SERRANO D.O. Admission #: [id number] Family : Order #: [id number] CLICK HERE TO VIEW EXAM RADIOLOGY REPORT PROCEDURE: MAMMOGRAM SCREENING 3D BILATERAL CAD COMPARISON: MG MAMM SCREEN 3D RAGHU CAD, 06/20/2021. MG MAMM SCREEN RAGHU W CAD, 10/15/2019. INDICATIONS: Screening mammography Calculator Name NCI Breast Cancer Risk Assessment Tool 5 Year Breast Cancer Risk 1.60% Lifetime Breast Cancer Risk 7.30% Personal Breast Cancer No Personal Ovarian Cancer No Treatments radiation-hysterectomy Family Cancers None LOCATION: [facility] BREAST COMPOSITION: Scattered areas fibroglandular density. FINDINGS: DIAGNOSTIC CATEGORY 1--NEGATIVE. NO CHANGE FROM COMPARISON ASSESSMENT. RIGHT BREAST: No significant suspicious finding. LEFT BREAST: No significant suspicious finding. RECOMMENDATIONS: ROUTINE MAMMOGRAM AND CLINICAL EVALUATION IN 12 MONTHS. PLEASE NOTE: A NORMAL MAMMOGRAM DOES NOT EXCLUDE THE POSSIBILITY OF BREAST CANCER. A CLINICALLY SUSPICIOUS PALPABLE LUMP SHOULD BE BIOPSIED. Dictated by: Jacob Escobedo MD on 10/04/2022 at 13:52 Approved by: Jacob Escobedo MD on 10/04/2022 at 13:53 Normal [facility] COLONOSCOPY (THERAPEUTIC)on 09-26-2022 [facility] T3, TOTAL (TRIIODOTHYRONINE) on 09-05-2022 T3, TOTAL 132 ng/dL Normal 71-180 [facility] Comment on above: Performed By: #### T 3TOTAL ####[facility] [address] [address]Dr. Cheryl Monzon CBC AUTO DIFFon 09-04-2022 BASO # 0.0 103/ul Normal 0.0-0.1 [facility] Comment on above: Performed By: #### C BC ####[facility] [address] [place], [place] [address]Dr. Cheryl Monzon Basophils/100 WBC (Bld) 0.4 % Normal 0.2-2.0 [facility] Comment on above: Performed By: #### C BC ####[facility] [address] [place], [place] [address]Dr. Cheryl Monzon EO # 0.1 103/ul Normal 0.0-0.7 [facility] Comment on above: Performed By: #### C BC ####[facility] [address] [place], [place] [address]Dr. Cheryl Monzon Eosinophils/100 WBC (Bld) 4.9 % Normal 0.9-7.0 [facility] Comment on above: Performed By: #### C BC ####[facility] [address] [place], [place] [address]Dr. Cheryl Monzon Erythrocyte distribution width (RBC) [Ratio] 12.8 % Normal 11.0-15.0 [facility] Comment on above: Performed By: #### C BC ####[facility] [address] [place], [place] [address]Dr. Cheryl Monzon Hematocrit (Bld) [Volume fraction] 36.7 % Normal 36.0-48.0 [facility] Comment on above: Performed By: #### C BC ####[facility] [address] [place], [place] [address]Dr. Cheryl Monzon Hemoglobin (Bld) [Mass/Vol] 11.8 g/dL Critically low 12.0-16.0 [facility] Comment on above: Performed By: #### C BC ####[facility] [address] [id number]. Cheryl Monzon IG # 0.01 10e3/ul Normal 0.00-0.03 [facility] Comment on above: Performed By: #### C BC ####[facility] [address] [id number]. Cheryl Monzon IG % 0.4 % Normal 0.0-0.5 [facility] Comment on above: Performed By: #### C BC ####[facility] [address] [address]Dr. Cheryl Monzon LYMPH # 0.8 103/ul Critically low 1.2-3.8 [facility] Comment on above: Performed By: #### C BC ####[facility] [address] [address]Dr. Cheryl Monzon Lymphocytes/100 WBC (Bld) 28.6 % Normal 20.5-60.0 [facility] Comment on above: Performed By: #### C BC ####[facility] [address] [address]Dr. Cheryl Monzon MANUAL DIFF REQ NO Normal [facility] Comment on above: Performed By: #### C BC ####[facility] [address] [address]Dr. Cheryl Monzon MCH (RBC) [Entitic mass] 30.7 pg Normal 26.7-34.0 [facility] Comment on above: Performed By: #### C BC ####[facility] [address] [place], [place] [address]Dr. Cheryl Monzon MCHC (RBC) [Mass/Vol] 32.2 g/dL Normal 29.9-35.2 [facility] Comment on above: Performed By: #### C BC ####[facility] [address] [address]Dr. Cheryl Monzon MCV (RBC) [Entitic vol] 95.6 fL Normal 81.0-99.0 [facility] Comment on above: Performed By: #### C BC ####[facility] [address] [id number]. Cheryl Monzon MONO # 0.3 103/ul Normal 0.3-0.8 [facility] Comment on above: Performed By: #### C BC ####[facility] [address] [id number]. Cheryl Monzon Monocytes/100 WBC (Bld) 11.7 % Normal 1.7-12.0 [facility] Comment on above: Performed By: #### C BC ####[facility] [address] [id number]. Cheryl Monzon NEUT # 1.4 103/ul Normal 1.4-6.5 [facility] Comment on above: Performed By: #### C BC ####[facility] [address] [id number]. Cheryl Monzon Neutrophils/100 WBC (Bld) 54.0 % Normal 43.0-75.0 [facility] Comment on above: Performed By: #### C BC ####[facility] [address] [id number]. Cheryl Monzon Platelet mean volume (Bld) [Entitic vol] 9.2 fL Critically low 9.5-13.5 [facility] Comment on above: Performed By: #### C BC ####[facility] [address] [id number]. Cheryl Monzon PLT 217 103/ul Normal 150-450 [facility] Comment on above: Performed By: #### C BC ####[facility] [address] [id number]. Cheryl Monzon RBC 3.84 106/ul Critically low 4.20-5.40 [facility] Comment on above: Performed By: #### C BC ####[facility] [address] [id number]. Cheryl Monzon WBC 2.7 103/ul Critically low 4.0-11.0 [facility] Comment on above: Performed By: #### C BC ####[facility] [address] [place], [place] [address]Dr. Cheryl Monzon FREE T4on 09-04-2022 Free T4 [Mass/Vol] 0.83 ng/dL Normal 0.76-1.46 [facility] Comment on above: Performed By: #### F T4 #### [facility] [id number] Cheryl Monzon GLYCOHEMOGLOBIN A1Con 2021 ADA RECOMMENDATION SEE BELOW Normal [facility] Comment on above: Result Comment: ADA RECOMMENDED LIMIT 4.0 - 6.0 ADA THERAPEUTIC TARGET < 7.0 ACTION SUGGESTED > 7.0 Performed By: #### A 1C #### [facility] [address] [address] [address] Cheryl Monzon Glucose [Mass/Vol] 111 mg/dL Normal [facility] Comment on above: Performed By: #### A 1C #### [facility] [address] [address] [address] Cheryl Monzon HbA1c (Bld) [Mass fraction] 5.5 % Normal 4.5-6.2 [facility] Comment on above: Performed By: #### A 1C #### [facility] [address] [address] [address] Cheryl Monzon LIPID PROFILEon 09-04-2022 CHOL-HDL RATIO NORM SEE BELOW Normal [facility] Comment on above: Result Comment: 3.3 - 4.4 LOW RISK 4.4 - 7.1 AVERAGE RISK 7.1 - 11.0 MODERATE RISK >11.0 HIGH RISK Performed By: #### T SH, LIPID, CMP ####[facility] [address] [id number]. Cheryl Monzon Cholesterol [Mass/Vol] 201 mg/dL Critically high <=200 [facility] Comment on above: Performed By: #### T SH, LIPID, CMP ####[facility] [address] [id number]. Cheryl Monzon Cholesterol in HDL [Mass/Vol] 78 mg/dL Critically high 40-60 [facility] Comment on above: Performed By: #### T SH, LIPID, CMP ####[facility] [address] [id number]. Cheryl Monzon Cholesterol in LDL [Mass/Vol] 112.8 mg/dL Normal [facility] Comment on above: Performed By: #### T PUSHPA, LIPID, CMP ####[facility] [address] [id number]. Cheryl Monzon Cholesterol.total/Chol esterol in HDL [Mass ratio] 2.6 {ratio} Normal [facility] Comment on above: Performed By: #### T PUSHPA, LIPID, CMP ####[facility] [address] [id number]. Cheryl Monzon HDL NORMAL > or = 60 mg/dl - LO W CARDIOVASCULAR RISK <40 mg/dl - HIGH CARDIOVASCULAR RISK Normal [facility] Comment on above: Performed By: #### T PUSHPA, LIPID, CMP ####[facility] [address] [address]Dr. Cheryl Monzon LDL CALC NORMAL SEE BELOW Normal [facility] Comment on above: Result Comment: <100 mg/dl OPTIMAL 100 - 129 mg/dl NEAR OR ABOVE OPTIMAL 130 - 159 mg/dl BORDERLINE HIGH 160 - 189 mg/dl HIGH >190 mg/dl VERY HIGH Performed By: #### T PUSHPA, LIPID, CMP ####[facility] [address] [id number]. Cheryl Monzon Triglyceride [Mass/Vol] 51 mg/dL Normal <=150 [facility] Comment on above: Performed By: #### T PUSHPA, LIPID, CMP ####[facility] [address] [id number]. Cheryl Monzon VLDL CALC 10.2 mg/dL Normal [facility] Comment on above: Performed By: #### T PUSHPA, LIPID, CMP ####[facility] [address] [address]Dr. Cheryl Monzon PROF 14(COMP METB)on 022 Albumin [Mass/Vol] 3.3 g/dL Critically low 3.4-5.0 [facility] Comment on above: Performed By: #### T SH, LIPID, CMP #### [facility] [address] [address] [address] Cheryl Monzon Albumin/Globulin [Mass ratio] 1.0 {ratio} Normal [facility] Comment on above: Performed By: #### T SH, LIPID, CMP #### [facility] [address] [address] [address] Cheryl Monzon ALP [Catalytic activity/Vol] 94 U/L Normal 46-116 [facility] Comment on above: Performed By: #### T SH, LIPID, CMP #### [facility] [address] [address] [address] Cheryl Monzon ALT [Catalytic activity/Vol] 53 U/L Normal 14-59 [facility] Comment on above: Performed By: #### T SH, LIPID, CMP #### [facility] [address] [place] [address] Dr. Cheryl Monzon Anion gap [Moles/Vol] 8.8 mmol/L Normal [facility] Comment on above: Performed By: #### T SH, LIPID, CMP #### [facility] [address] [address] [address] Cheryl Monzon AST [Catalytic activity/Vol] 42 U/L Critically high 15-37 [facility] Comment on above: Performed By: #### T SH, LIPID, CMP #### [facility] [address] [address] [address] Cheryl Monzon Bilirubin [Mass/Vol] 0.3 mg/dL Normal 0.2-1.0 [facility] Comment on above: Performed By: #### T SH, LIPID, CMP #### [facility] [address] [address] [address] Cheryl Monzon Calcium [Mass/Vol] 8.8 mg/dL Normal 8.5-10.1 [facility] Comment on above: Performed By: #### T SH, LIPID, CMP #### [facility] [address] [address] [address] Cheryl Monzon Chloride [Moles/Vol] 106 mmol/L Normal 98-107 [facility] Comment on above: Performed By: #### T SH, LIPID, CMP #### [facility] [address] [address] [address] Cheryl Monzon CO2 [Moles/Vol] 30.7 mmol/L Normal 21.0-32.0 [facility] Comment on above: Performed By: #### T SH, LIPID, CMP #### [facility] [address] [address] [address] Cheryl Monzon Creatinine [Mass/Vol] 0.66 mg/dL Normal 0.55-1.02 [facility] Comment on above: Performed By: #### T SH, LIPID, CMP #### [facility] [address] [address] [address] Cheryl Monzon EGFR-AF LUXEMBOURGER >60 Normal >=60 [facility] Comment on above: Performed By: #### T SH, LIPID, CMP #### [facility] [address] [address] [address] Cheryl Monzon EGFR-NON AF LUXEMBOURGER >60 Normal >=60 [facility] Comment on above: Performed By: #### T SH, LIPID, CMP #### [facility] [address] [address] [address] Cheryl Monzon Globulin (S) [Mass/Vol] 3.4 g/dL Normal [facility] Comment on above: Performed By: #### T SH, LIPID, CMP #### [facility] [address] [address] [address] Cheryl Monzon Glucose [Mass/Vol] 115 mg/dL Critically high 74-106 [facility] Comment on above: Performed By: #### T SH, LIPID, CMP #### [facility] [address] [address] [address] Cheryl Monzon Potassium [Moles/Vol] 4.5 mmol/L Normal 3.5-5.1 [facility] Comment on above: Performed By: #### T SH, LIPID, CMP #### [facility] [address] [address] [address] Cheryl Monzon Protein [Mass/Vol] 6.7 g/dL Normal 6.4-8.2 [facility] Comment on above: Performed By: #### T SH, LIPID, CMP #### [facility] [address] [place] [address] Dr. Cheryl Monzon Sodium [Moles/Vol] 141 mmol/L Normal 136-145 [facility] Comment on above: Performed By: #### T SH, LIPID, CMP #### [facility] [address] [place] [address] Dr. Cheryl Monzon Urea nitrogen [Mass/Vol] 16.0 mg/dL Normal 7.0-18.0 [facility] Comment on above: Performed By: #### T SH, LIPID, CMP #### [facility] [address] [place] [address] Dr. Cheryl Monzon Urea nitrogen/Creatinine [Mass ratio] 24.2 mg/mg Normal [facility] Comment on above: Performed By: #### T SH, LIPID, CMP #### [facility] [address] [place] [address] Dr. Cheryl Monzon TSHon 09-04-2022 TSH 0.009 uIU/mL Critically low 0.358-3.[address] [facility] Comment on above: Performed By: #### T SH, LIPID, CMP #### [facility] [address] [place] [address] Dr. Cheryl Monzon [facility]19 [facility]on 05-18 SARS-CoV-2 (COVID-19) RNA ANGELA+probe Ql (Unsp spec) Not detected Normal NOT DETECTED [facility] Comment on above: Result Comment: When diagnostic testing is negative, the possibility of a false negative should be considered in the context of a patient's recent exposures and the presence of clinical signs and symptoms consistent with SARS-CoV-2. This test is not yet approved or cleared by the [place] FDA. When there are no FDA-approved or cleared tests available, and other criteria are met, FDA can make tests available under an emergency access mechanism called an Emergency Use Authorization (EUA). The EUA for this test is supported by the [employer] Helper of Health and Human Service's declaration that circumstances exist to justify the emergency use of in vitro diagnostics for the detection and/or diagnosis of the virus that causes COVID-19. This EUA will remain in effect for the duration of the COVID-19 declaration justifying emergency of IVDs, unless it is terminated or revoked by the FDA (after which the test may no longer be used). Performed By: #### C VDTB #### [facility] [address] [place], [place] [address] Dr. Cheryl Monzon CBC with Diffon 11-22-2021 Abs. Basophil 0.00 k/uL Normal 0.0-0.2 [facility] Comment on above: Performed By: #### C DP, CMPX, SED, LAC #### [facility] [address] [place] [address] Office Machine Technician: Jacob Campos MD Abs.Neutrophil (Seg) 2.80 k/uL Normal 2.5-7.0 [facility] Comment on above: Performed By: #### C DP, CMPX, SED, LAC #### [facility] [address] [place] [address] Office Machine Technician: Jacob Campos MD Auto Diff Performed YES Normal [facility] Comment on above: Performed By: #### C DP, CMPX, SED, LAC #### [facility] [address] [place] [address] Office Machine Technician: Jacob Campos MD Basophils/100 WBC (Bld) 1 % Normal 0-2 [facility] Comment on above: Performed By: #### C DP, CMPX, SED, LAC #### [facility] [address] [place] [address] Office Machine Technician: Jacob Campos MD Eosinophils (Bld) [#/Vol] 0.10 10*3/uL Normal 0.0-0.4 [facility] Comment on above: Performed By: #### C DP, CMPX, SED, LAC #### [facility] [address] [place] [address] Office Machine Technician: Jacob Campos MD Eosinophils/100 WBC (Bld) 3 % Normal 0-5 [facility] Comment on above: Performed By: #### C DP, CMPX, SED, LAC #### [facility] [address] [place], [place] [address] Office Machine Technician: Jacob Campos MD Erythrocyte distribution width (RBC) [Ratio] 13.6 % Normal 12.1-15.2 [facility] Comment on above: Performed By: #### C DP, CMPX, SED, LAC #### [facility] [address] [id number] Office Machine Technician: Jacob Campos MD Hematocrit (Bld) [Volume fraction] 33.4 % Low 36-46 [facility] Comment on above: Performed By: #### C DP, CMPX, SED, LAC #### [facility] [address] [id number] Office Machine Technician: Jacob Campos MD Hemoglobin (Bld) [Mass/Vol] 11.3 g/dL Low 12.0-16.0 [facility] Comment on above: Performed By: #### C DP, CMPX, SED, LAC #### [facility] [address] [id number] Office Machine Technician: Jacob Campos MD Lymphocytes (Bld) [#/Vol] 0.80 10*3/uL Low 1.0-4.8 [facility] Comment on above: Performed By: #### C DP, CMPX, SED, LAC #### [facility] [address] [place] [address] Office Machine Technician: Jacob Campos MD Lymphocytes/100 WBC (Bld) 19 % Normal 15-40 [facility] Comment on above: Performed By: #### C DP, CMPX, SED, LAC #### [facility] [address] [id number] Office Machine Technician: Jacob Campos MD MCH (RBC) [Entitic mass] 30.5 pg Normal 26-34 [facility] Comment on above: Performed By: #### C DP, CMPX, SED, LAC #### [facility] [address] [place], [place] [id number] Office Machine Technician: Jacob Campos MD MCHC (RBC) [Mass/Vol] 33.8 g/dL Normal 31-[address] [facility] Comment on above: Performed By: #### C DP, CMPX, SED, LAC #### [facility] [address] [place], [place] [id number] Office Machine Technician: Jacob Campos MD MCV (RBC) [Entitic vol] 90.4 fL Normal 80-100 [facility] Comment on above: Performed By: #### C DP, CMPX, SED, LAC #### [facility] [address] [place], [place] [id number] Office Machine Technician: Jacob Campos MD Monocytes (Bld) [#/Vol] 0.50 10*3/uL Normal 0.0-1.0 [facility] Comment on above: Performed By: #### C DP, CMPX, SED, LAC #### [facility] [address] [place], [place] [id number] Office Machine Technician: Jacob Campos MD Monocytes/100 WBC (Bld) 12 % High 4-8 [facility] Comment on above: Performed By: #### C DP, CMPX, SED, LAC #### [facility] [address] [place], [place] [id number] Office Machine Technician: Jacob Campos MD Neutrophil (Seg) 65 % Normal 47-75 [facility] Comment on above: Performed By: #### C DP, CMPX, SED, LAC #### [facility] [address] [place], [place] [id number] Office Machine Technician: Jacob Campos MD Platelets (Bld) [#/Vol] 378 10*3/uL Normal 140-450 [facility] Comment on above: Performed By: #### C DP, CMPX, SED, LAC #### [facility] [address] [place] [address] Office Machine Technician: Jacob Campos MD RBC (Bld) [#/Vol] 3.70 10*6/uL Low 4.0-5.2 [facility] Comment on above: Performed By: #### C DP, CMPX, SED, LAC #### [facility] [address] [place] [address] Office Machine Technician: Jacob Campos MD WBC (Bld) [#/Vol] 4.3 10*3/uL Normal 3.5-11.0 [facility] Comment on above: Performed By: #### C DP, CMPX, SED, LAC #### [facility] [address] [place] [address] Office Machine Technician: Jacob Campos MD Comp Metabolic Pr/rfx MGon 0 11-22-2021 (cont.) Normal [facility] Comment on above: Result Comment: Aver age GFR for 60-69 years old: 85 mL/min/1.73sq m Chronic Kidney Disease: <60 mL/min/1.73sq m Kidney failure: <15 mL/min/1.73sq m eGFR calculated using average adult body mass. Additional eGFR calculator available at: http://www.[employer].Xiaoying/multiple_crcl_2012.htm Performed By: #### C DP, CMPX, SED, LAC #### [facility] [address] [place] [address] Office Machine Technician: Jacob Campos MD Albumin [Mass/Vol] 3.5 g/dL Normal 3.5-5.2 [facility] Comment on above: Performed By: #### C DP, CMPX, SED, LAC #### [facility] [address] [place], [place] [id number] Office Machine Technician: Jacob Campos MD Alkaline Phos 239 U/L High 35-104 [facility] Comment on above: Performed By: #### C DP, CMPX, SED, LAC #### [facility] [address] [place], [place] [id number] Office Machine Technician: Jacob Campos MD ALT [Catalytic activity/Vol] 23 U/L Normal 5-33 [facility] Comment on above: Performed By: #### C DP, CMPX, SED, LAC #### [facility] [address] [place], [place] [id number] Office Machine Technician: Jacob Campos MD Anion gap [Moles/Vol] 11 mmol/L Normal 9-[address] [facility] Comment on above: Performed By: #### C DP, CMPX, SED, LAC #### [facility] [address] [place], [place] [phone] Office Machine Technician: Jacob Campos MD AST [Catalytic activity/Vol] 21 U/L Normal <32 [facility] Comment on above: Performed By: #### C DP, CMPX, SED, LAC #### [facility] [address] [place], [place] [id number] Office Machine Technician: Jacob Campos MD Bilirubin [Mass/Vol] 0.27 mg/dL Low 0.30-1.20 [facility] Comment on above: Performed By: #### C DP, CMPX, SED, LAC #### [facility] [address] [place], [place] [id number] Office Machine Technician: Jacob Campos MD BUN/CRE Ratio 22 High 9-20 [facility] Comment on above: Performed By: #### C DP, CMPX, SED, LAC #### [facility] [address] [place], [place] [id number] Office Machine Technician: Jacob Campos MD Calcium [Mass/Vol] 9.5 mg/dL Normal 8.6-10.4 [facility] Comment on above: Performed By: #### C DP, CMPX, SED, LAC #### [facility] [address] [place] [id number] Office Machine Technician: Jacob Campos MD Chloride [Moles/Vol] 102 mmol/L Normal 98-107 [facility] Comment on above: Performed By: #### C DP, CMPX, SED, LAC #### [facility] [address] [id number] Office Machine Technician: Jacob Campos MD CO2 [Moles/Vol] 26 mmol/L Normal 20-31 [facility] Comment on above: Performed By: #### C DP, CMPX, SED, LAC #### [facility] [address] [id number] Office Machine Technician: Jacob Campos MD Creatinine [Mass/Vol] 0.58 mg/dL Normal 0.50-0.[address] [facility] Comment on above: Performed By: #### C DP, CMPX, SED, LAC #### [facility] [address] [id number] Office Machine Technician: Jacob Campos MD GFR, Amer >60 Normal >60 [facility] Comment on above: Performed By: #### C DP, CMPX, SED, LAC #### [facility] [address] [place] [address] Office Machine Technician: Jacob Campos MD GFR,non Amer >60 Normal >60 [facility] Comment on above: Performed By: #### C DP, CMPX, SED, LAC #### [facility] [address] [id number] Office Machine Technician: Jacob Campos MD Glucose [Mass/Vol] 109 mg/dL High 70-99 [facility] Comment on above: Performed By: #### C DP, CMPX, SED, LAC #### [facility] [address] [place], [place] [id number] Office Machine Technician: Jacob Campos MD Potassium [Moles/Vol] 3.7 mmol/L Normal 3.7-5.[address] [facility] Comment on above: Performed By: #### C DP, CMPX, SED, LAC #### [facility] [address] [place] [address] Office Machine Technician: Jacob Campos MD Protein [Mass/Vol] 7.0 g/dL Normal 6.4-8.3 [facility] Comment on above: Performed By: #### C DP, CMPX, SED, LAC #### [facility] [address] [place] [address] Office Machine Technician: Jacob Campos MD Sodium [Moles/Vol] 139 mmol/L Normal 135-144 [facility] Comment on above: Performed By: #### C DP, CMPX, SED, LAC #### [facility] [address] [id number] Office Machine Technician: Jacob Campos MD Urea nitrogen [Mass/Vol] 13 mg/dL Normal 8-23 [facility] Comment on above: Performed By: #### C DP, CMPX, SED, LAC #### [facility] [address] [place] [address] Office Machine Technician: Jacob Campos MD Lactic Acidon 11-22-2021 Lactate [Moles/Vol] 0.7 mmol/L Normal 0.5-2.2 [facility] Comment on above: Performed By: #### C DP, CMPX, SED, LAC #### [facility] [address] [place] [address] Office Machine Technician: Jacob Campos MD Sedimentation Rateon 022 Sedimentation Rate 48 mm High 0-30 [facility] Comment on above: Performed By: #### C DP, CMPX, SED, LAC #### [facility] [address] [place] [address] Office Machine Technician: Jacob Campos MD Urinalysis, Routineon 2021 Bilirubin, SemiQt,Ur Negative Normal NEG [facility] Comment on above: Performed By: #### U A #### [facility] [address] [place], [place] [id number] Office Machine Technician: Jacob Campos MD Blood, Urine Negative Normal NEG [facility] Comment on above: Performed By: #### U A #### [facility] [address] [place] [address] Office Machine Technician: Jacob Campos MD Clarity (U) Clear Normal CLEAR [facility] Comment on above: Performed By: #### U A #### [facility] [address] [place], [place] [phone] Office Machine Technician: Jacob Campos MD Color (U) Yellow Normal YEL [facility] Comment on above: Performed By: #### U A #### [facility] [address] [place], [place] [id number] Office Machine Technician: Jacob Campos MD Comment Normal [facility] Comment on above: Performed By: #### U A #### [facility] [address] [place], [place] [phone] Office Machine Technician: Jacob Campos MD Glucose Ql (U) Negative Normal NEG [facility] Comment on above: Performed By: #### U A #### [facility] [address] [place] [address] Office Machine Technician: Jacob Campos MD Ketones Ql (U) Negative Normal NEG [facility] Comment on above: Performed By: #### U A #### [facility] [address] [place], [place] [phone] Office Machine Technician: Jacob Campos MD Leukocyte esterase Test strip Ql (U) Negative Normal NEG [facility] Comment on above: Performed By: #### U A #### [facility] [address] [place], [place] [id number] Office Machine Technician: Jacob Campos MD Nitrite,Ur Negative Normal NEG [facility] Comment on above: Performed By: #### U A #### [facility] [address] [place], [place] [phone] Office Machine Technician: Jacob Campos MD PH,Ur 6.5 Normal 5.0-8.0 [facility] Comment on above: Performed By: #### U A #### [facility] [address] [place], [place] [phone] Office Machine Technician: Jacob Campos MD Protein Ql (U) Negative Normal NEG [facility] Comment on above: Performed By: #### U A #### [facility] [address] [place], [place] [phone] Office Machine Technician: Jacob Campos MD Spec. [place],Ur 1.015 Normal 1.005-1.030 [facility] Comment on above: Performed By: #### U A #### [facility] [address] [place], [place] [phone] Office Machine Technician: Jacob Campos MD Urobilinogen,Ur Normal Normal NORM [facility] Comment on above: Performed By: #### U A #### [facility] [address] [place], [place] [phone] Office Machine Technician: Jacob Campos MD Basic Metabolic Panelon Calcium [Mass/Vol] 9.4 mg/dL Normal 8.2-10.2 [facility] Comment on above: Performed By: #### C BC, BMP #### [facility] [address] [place] [address] [place] Chloride [Moles/Vol] 101 mmol/L Normal 95-114 [facility] Comment on above: Performed By: #### C BC, BMP #### [facility] [address] [place] [address] [place] CO2 [Moles/Vol] 26.3 mmol/L Normal 22.0-30.0 [facility] Comment on above: Performed By: #### C BC, BMP #### [facility] [address] Creatinine [Mass/Vol] 0.72 mg/dL Normal 0.44-1.03 [facility] Comment on above: Performed By: #### C BC, BMP #### [facility] [address] [place] [address] [place] Creatinine Clr Calc Pharmacy 76.81 [facility] Comment on above: Result Comment: PERF ORMED BY: [place] [address] PATHOLOGIST MANAGING BROKER CLAIRE ANTHONY M.D. Performed By: #### C BC, BMP #### [facility] [address] Estimated GFR ( Damon > 60 [facility] Comment on above: Result Comment: GFR estimated reference range: According to KDOQI guidelines, <60 ml/min/1.73m2 is sufficient to diagnose a patient with chronic kidney disease. Performed By: #### C BC, BMP #### [address] Estimated GFR (Non- Am > 60 [facility] Comment on above: Performed By: #### C BC, BMP #### [facility] [address] [place] [address] [place] Glucose [Mass/Vol] 104 mg/dL High 70-100 [facility] Comment on above: Result Comment: [place] Glucose Reference Range is dependent on time and content of last meal. Glucose of more than 200 mg/dL in a nonstressed, ambulatory subject supports the diagnosis of Diabetes Mellitus. ADA recommended reference range Performed By: #### C BC, BMP #### [facility] [address] [place] [address] [place] Potassium [Moles/Vol] 3.8 mmol/L Normal 3.5-5.1 [facility] Comment on above: Performed By: #### C BC, BMP #### [facility] [address] Sodium [Moles/Vol] 138 mmol/L Normal 136-146 [facility] Comment on above: Performed By: #### C BC, BMP #### [facility] [address] Urea nitrogen [Mass/Vol] 13 mg/dL Normal 9-23 [facility] Comment on above: Performed By: #### C BC, BMP #### [facility] [address] CBC with Diffon 11-21-2021 Abs.Imm.Granulocyte NOT REPORTED Normal 0.00-0.[address] [facility] Comment on above: Performed By: #### C DP, CMPX, SED, LAC #### [facility] [address] [place] [address] Office Machine Technician: Jacob Campos MD Immature Granulocyte NOT REPORTED Normal 0 [facility] Comment on above: Performed By: #### C DP, CMPX, SED, LAC #### [facility] [address] [place] [address] Office Machine Technician: Jacob Campos MD MPV NOT REPORTED Normal 6.0-12.0 [facility] Comment on above: Performed By: #### C DP, CMPX, SED, LAC #### [facility] [address] [place] [phone] Office Machine Technician: Jacob Campos MD NRBC Automated NOT REPORTED Normal [facility] Comment on above: Performed By: #### C DP, CMPX, SED, LAC #### [facility] [address] [phone] Office Machine Technician: Jacob Campos MD Platelet Comment NOT REPORTED Normal [facility] Comment on above: Performed By: #### C DP, CMPX, SED, LAC #### [facility] [address] [place], [place] [phone] Office Machine Technician: Jacob Campos MD RBC morphology finding Nom (Bld) NOT REPORTED Normal [facility] Comment on above: Performed By: #### C DP, CMPX, SED, LAC #### [facility] [address] [phone] Office Machine Technician: Jacob Campos MD WBC Morphology NOT REPORTED Normal [facility] Comment on above: Performed By: #### C DP, CMPX, SED, LAC #### [facility] [address] [phone] Office Machine Technician: Jacob Campos MD Comp Metabolic Pr/rfx MGon 0 11-21-2021 Albumin/Glob Ratio NOT REPORTED Normal 1.0-2.5 [facility] Comment on above: Performed By: #### C DP, CMPX, SED, LAC #### [facility] [address] [place] [address] Office Machine Technician: Jacob Campos MD Staging: NOT REPORTED Normal [facility] Comment on above: Performed By: #### C DP, CMPX, SED, LAC #### [facility] [address] [place] [address] Office Machine Technician: Jacob Campos MD Complete Blood Count Auto Di ffon 11-21-2021 Basophils (Bld) [#/Vol] 0.0 10*3/uL Normal 0.0-0.2 [facility] Comment on above: Result Comment: PERF ORMED BY: [place] [id number] PATHOLOGIST MANAGING BROKER CLAIRE ANTHONY M.D. Performed By: #### C BC, BMP #### [place] [address] [place] Basophils/100 WBC (Bld) 0.7 % Normal . [facility] Comment on above: Performed By: #### C BC, BMP #### [facility] [address] [place] [address] [place] Eosinophils (Bld) [#/Vol] 0.1 10*3/uL Normal 0.0-0.45 [facility] Comment on above: Performed By: #### C BC, BMP #### [facility] [address] [place] [address] [place] Eosinophils/100 WBC (Bld) 2.8 % Normal . [facility] Comment on above: Performed By: #### C BC, BMP #### [facility] [address] Erythrocyte distribution width (RBC) [Ratio] 13.2 % Normal 11.9-15.3 [facility] Comment on above: Performed By: #### C BC, BMP #### [facility] [address] Hematocrit (Bld) [Volume fraction] 35.7 % Normal 34.0-46.4 [facility] Comment on above: Performed By: #### C BC, BMP #### [facility] [address] [place] [address] [place] Hemoglobin (Bld) [Mass/Vol] 11.9 g/dL Normal 11.8-15.4 [facility] Comment on above: Performed By: #### C BC, BMP #### [facility] [address] [place] [address] [place] Lymphocytes (Bld) [#/Vol] 0.8 10*3/uL Low 1.00-4.8 [facility] Comment on above: Performed By: #### C BC, BMP #### [facility] [address] [place] [phone] [place] Lymphocytes/100 WBC (Bld) 16.7 % Normal . [facility] Comment on above: Performed By: #### C BC, BMP #### [facility] [address] [place] [id number] [facility] MCH (RBC) [Entitic mass] 30.2 pg Normal 24.7-34.3 [facility] Comment on above: Performed By: #### C BC, BMP #### [facility] [address] [place] [address] [place] MCV (RBC) [Entitic vol] 90.6 fL Normal 80-100 [facility] Comment on above: Performed By: #### C BC, BMP #### [facility] [address] Mean Corpuscular HGB Conc 33.3 g/dL Normal 32.0-35.0 [facility] Comment on above: Performed By: #### C BC, BMP #### [facility] [address] [place] [address] [place] Monocytes (Bld) [#/Vol] 0.4 10*3/uL Normal 0.0-0.8 [facility] Comment on above: Performed By: #### C BC, BMP #### [facility] [address] [place] [address] [place] Monocytes/100 WBC (Bld) 9.1 % Normal . [facility] Comment on above: Performed By: #### C BC, BMP #### [facility] [address] [place] [address] [place] Neutrophils (Bld) [#/Vol] 3.4 10*3/uL Normal 1.8-7.7 [facility] Comment on above: Performed By: #### C BC, BMP #### [facility] [address] [place] [address] [place] Neutrophils/100 WBC (Bld) 70.7 % Normal . [facility] Comment on above: Performed By: #### C BC, BMP #### [facility] [address] [place] [address] [place] Nucleated RBC/100 WBC (Bld) [Ratio] 0.0 % Normal 0-0.5 [facility] Comment on above: Performed By: #### C BC, BMP #### [facility] [address] [place] [address] [place] Platelet mean volume (Bld) [Entitic vol] 6.9 fL Normal 6.3-10.7 [facility] Comment on above: Performed By: #### C BC, BMP #### [facility] [address] [place] [address] [place] Platelets (Bld) [#/Vol] 423 10*3/uL Normal 150-450 [facility] Comment on above: Performed By: #### C BC, BMP #### [facility] [address] RBC (Bld) [#/Vol] 3.94 10*6/uL Normal 3.60-5.00 [facility] Comment on above: Performed By: #### C BC, BMP #### [facility] [address] WBC (Bld) [#/Vol] 4.8 10*3/uL Normal 4.5-11.0 [facility] Comment on above: Performed By: #### C BC, BMP #### [place] [address] [place] Dipstick and Microscopicon 0 11-21-2021 Appearance (U) Clear Normal Clear [facility] Comment on above: Order Comment: Name Collection Type:: Clean-Voided Midstream Performed By: #### C BC, BMP #### [place] [address] [place] Bacteria,Urine None Seen Normal None Seen [facility] Comment on above: Order Comment: Name Collection Type:: Clean-Voided Midstream Performed By: #### C BC, BMP #### [place] [address] [place] Bilirubin,Urine Negative Normal Negative [facility] Comment on above: Order Comment: Name Collection Type:: Clean-Voided Midstream Performed By: #### C BC, BMP #### [facility] [address] [place] [address] [place] Color (U) Yellow Normal Yellow [facility] Comment on above: Order Comment: Name Collection Type:: Clean-Voided Midstream Performed By: #### C BC, BMP #### [place] [address] [place] Glucose Ql (U) Normal Normal Normal [facility] Comment on above: Order Comment: Name Collection Type:: Clean-Voided Midstream Performed By: #### C BC, BMP #### [facility] [address] [place] [address] Hyaline Casts,Urine 0-8 Normal 0-8 [facility] Comment on above: Order Comment: Name Collection Type:: Clean-Voided Midstream Result Comment: PERF ORMED BY: [place] [address] PATHOLOGIST MANAGING BROKER CLAIRE ANTHONY M.D. Performed By: #### C BC, BMP #### [address] Ketones Ql (U) Negative Normal Negative [facility] Comment on above: Order Comment: Name Collection Type:: Clean-Voided Midstream Performed By: #### C BC, BMP #### [address] Leukocyte esterase Test strip Ql (U) 1+ High Negative [facility] Comment on above: Order Comment: Name Collection Type:: Clean-Voided Midstream Performed By: #### C BC, BMP #### [place] [address] [place] Nitrite,Urine Negative Normal Negative [facility] Comment on above: Order Comment: Name Collection Type:: Clean-Voided Midstream Performed By: #### C BC, BMP #### [place] [address] [place] Occult Blood,Urine Negative Normal Negative [facility] Comment on above: Order Comment: Name Collection Type:: Clean-Voided Midstream Result Comment: PERF ORMED BY: [place] [address] PATHOLOGIST MANAGING BROKER CLAIRE ANTHONY M.D. Performed By: #### C BC, BMP #### [facility] [address] [place] [address] [place] pH (U) 6.5 [pH] Normal 5.0-9.0 [facility] Comment on above: Order Comment: Name Collection Type:: Clean-Voided Midstream Performed By: #### C BC, BMP #### [facility] [address] [place] [address] Protein,Urine Negative Normal Negative [facility] Comment on above: Order Comment: Name Collection Type:: Clean-Voided Midstream Performed By: #### C BC, BMP #### [address] RBC,Urine 1-2 Normal 0-4 [facility] Comment on above: Order Comment: Name Collection Type:: Clean-Voided Midstream Performed By: #### C BC, BMP #### [address] Specificy [place],Urine 1.014 Normal 1.001-1.030 [facility] Comment on above: Order Comment: Name Collection Type:: Clean-Voided Midstream Performed By: #### C BC, BMP #### [address] Squamous Epithelial Cell,Urine None Seen Normal 0-2 [facility] Comment on above: Order Comment: Name Collection Type:: Clean-Voided Midstream Performed By: #### C BC, BMP #### [address] Urobilinogen,Urine Normal Normal Normal [facility] Comment on above: Order Comment: Name Collection Type:: Clean-Voided Midstream Performed By: #### C BC, BMP #### [facility] [address] [place] [address] [place] WBC,Urine 1-2 Normal 0-4 [facility] Comment on above: Order Comment: Name Collection Type:: Clean-Voided Midstream Performed By: #### C BC, BMP #### [address] Complete Blood Count Auto Di ffon 11-04-2021 Basophils (Bld) [#/Vol] 0.0 10*3/uL Normal 0.0-0.2 [facility] Comment on above: Result Comment: PERF ORMED BY: [place] [address] PATHOLOGIST MANAGING BR[employer]ER CLAIRE ANTHONY M.D. Performed By: #### C BC, BMP #### [facility] [address] Basophils/100 WBC (Bld) 0.1 % Normal . [facility] Comment on above: Performed By: #### C BC, BMP #### [facility] [address] [place] [address] [place] Eosinophils (Bld) [#/Vol] 0.1 10*3/uL Normal 0.0-0.45 [facility] Comment on above: Performed By: #### C BC, BMP #### [facility] [address] Eosinophils/100 WBC (Bld) 1.3 % Normal . [facility] Comment on above: Performed By: #### C BC, BMP #### [facility] [address] Erythrocyte distribution width (RBC) [Ratio] 13.0 % Normal 11.9-15.3 [facility] Comment on above: Performed By: #### C BC, BMP #### [facility] [address] Hematocrit (Bld) [Volume fraction] 27.5 % Low 34.0-46.4 [facility] Comment on above: Performed By: #### C BC, BMP #### [facility] [address] [place] [address] [place] Hemoglobin (Bld) [Mass/Vol] 9.3 g/dL Low 11.8-15.4 [facility] Comment on above: Performed By: #### C BC, BMP #### [facility] [address] [place] [address] [place] Lymphocytes (Bld) [#/Vol] 0.5 10*3/uL Low 1.00-4.8 [facility] Comment on above: Performed By: #### C BC, BMP #### [facility] [address] [place] [address] [place] Lymphocytes/100 WBC (Bld) 6.3 % Normal . [facility] Comment on above: Performed By: #### C BC, BMP #### [facility] [address] MCH (RBC) [Entitic mass] 31.1 pg Normal 24.7-34.3 [facility] Comment on above: Performed By: #### C BC, BMP #### [facility] [address] MCV (RBC) [Entitic vol] 92.0 fL Normal 80-100 [facility] Comment on above: Performed By: #### C BC, BMP #### [facility] [address] Mean Corpuscular HGB Conc 33.8 g/dL Normal 32.0-35.0 [facility] Comment on above: Performed By: #### C BC, BMP #### [facility] [address] Monocytes (Bld) [#/Vol] 0.8 10*3/uL Normal 0.0-0.8 [facility] Comment on above: Performed By: #### C BC, BMP #### [facility] [address] [place] [address] [place] Monocytes/100 WBC (Bld) 10.8 % Normal . [facility] Comment on above: Performed By: #### C BC, BMP #### [facility] [address] [place] [address] [place] Neutrophils (Bld) [#/Vol] 5.9 10*3/uL Normal 1.8-7.7 [facility] Comment on above: Performed By: #### C BC, BMP #### [facility] [address] [place] [address] [place] Neutrophils/100 WBC (Bld) 81.5 % Normal . [facility] Comment on above: Performed By: #### C BC, BMP #### [facility] [address] Nucleated RBC/100 WBC (Bld) [Ratio] 0.0 % Normal 0-0.5 [facility] Comment on above: Performed By: #### C BC, BMP #### [facility] [address] Platelet mean volume (Bld) [Entitic vol] 7.4 fL Normal 6.3-10.7 [facility] Comment on above: Performed By: #### C BC, BMP #### [facility] [address] Platelets (Bld) [#/Vol] 135 10*3/uL Low 150-450 [facility] Comment on above: Performed By: #### C BC, BMP #### [facility] [address] RBC (Bld) [#/Vol] 2.99 10*6/uL Low 3.60-5.00 [facility] Comment on above: Performed By: #### C BC, BMP #### [facility] [address] WBC (Bld) [#/Vol] 7.3 10*3/uL Normal 4.5-11.0 [facility] Comment on above: Performed By: #### C BC, BMP #### [address] Electrolyteson 11-04-2021 Chloride [Moles/Vol] 106 mmol/L Normal 95-114 [facility] Comment on above: Performed By: #### C BC, BMP #### [address] CO2 [Moles/Vol] 25.2 mmol/L Normal 22.0-30.0 [facility] Comment on above: Result Comment: PERF ORMED BY: [place] [address] PATHOLOGIST MANAGING BR[employer]ER CLAIRE ANTHONY M.D. Performed By: #### C BC, BMP #### [address] Potassium [Moles/Vol] 3.7 mmol/L Normal 3.5-5.1 [facility] Comment on above: Performed By: #### C BC, BMP #### [address] Sodium [Moles/Vol] 137 mmol/L Normal 136-146 [facility] Comment on above: Performed By: #### C BC, BMP #### [address] Complete Blood Count Auto Di ffon 11-03-2021 Basophils (Bld) [#/Vol] 0.0 10*3/uL Normal 0.0-0.2 [facility] Comment on above: Result Comment: PERF ORMED BY: [place] [address] PATHOLOGIST MANAGING BR[employer]ER CLAIRE ANTHONY M.D. Performed By: #### C BC, BMP #### [address] Basophils/100 WBC (Bld) 0.1 % Normal . [facility] Comment on above: Performed By: #### C BC, BMP #### [address] Eosinophils (Bld) [#/Vol] 0.0 10*3/uL Normal 0.0-0.45 [facility] Comment on above: Performed By: #### C BC, BMP #### [address] Eosinophils/100 WBC (Bld) 0.3 % Normal . [facility] Comment on above: Performed By: #### C BC, BMP #### [address] Erythrocyte distribution width (RBC) [Ratio] 12.8 % Normal 11.9-15.3 [facility] Comment on above: Performed By: #### C BC, BMP #### [address] Hematocrit (Bld) [Volume fraction] 29.5 % Low 34.0-46.4 [facility] Comment on above: Performed By: #### C BC, BMP #### [address] Hemoglobin (Bld) [Mass/Vol] 9.9 g/dL Low 11.8-15.4 [facility] Comment on above: Performed By: #### C BC, BMP #### [address] Lymphocytes (Bld) [#/Vol] 0.5 10*3/uL Low 1.00-4.8 [facility] Comment on above: Performed By: #### C BC, BMP #### [address] Lymphocytes/100 WBC (Bld) 7.4 % Normal . [facility] Comment on above: Performed By: #### C BC, BMP #### [address] MCH (RBC) [Entitic mass] 30.9 pg Normal 24.7-34.3 [facility] Comment on above: Performed By: #### C BC, BMP #### [address] MCV (RBC) [Entitic vol] 92.1 fL Normal 80-100 [facility] Comment on above: Performed By: #### C BC, BMP #### [address] [address] Mean Corpuscular HGB Conc 33.6 g/dL Normal 32.0-35.0 [facility] Comment on above: Performed By: #### C BC, BMP #### [place] [address] [place] Monocytes (Bld) [#/Vol] 0.7 10*3/uL Normal 0.0-0.8 [facility] Comment on above: Performed By: #### C BC, BMP #### [place] [address] [place] Monocytes/100 WBC (Bld) 10.0 % Normal . [facility] Comment on above: Performed By: #### C BC, BMP #### [place] [address] [place] Neutrophils (Bld) [#/Vol] 5.8 10*3/uL Normal 1.8-7.7 [facility] Comment on above: Performed By: #### C SANTANA, BMP #### [facility] [address] Neutrophils/100 WBC (Bld) 82.2 % Normal . [facility] Comment on above: Performed By: #### C SANTANA, BMP #### [facility] [address] Nucleated RBC/100 WBC (Bld) [Ratio] 0.0 % Normal 0-0.5 [facility] Comment on above: Performed By: #### C SANTANA, BMP #### [facility] [address] Platelet mean volume (Bld) [Entitic vol] 8.1 fL Normal 6.3-10.7 [facility] Comment on above: Performed By: #### C SANTANA, BMP #### [facility] [address] Platelets (Bld) [#/Vol] 153 10*3/uL Normal 150-450 [facility] Comment on above: Performed By: #### C SANTANA, BMP #### [address] RBC (Bld) [#/Vol] 3.21 10*6/uL Low 3.60-5.00 [facility] Comment on above: Performed By: #### C SANTANA, BMP #### [facility] [address] WBC (Bld) [#/Vol] 7.0 10*3/uL Normal 4.5-11.0 [facility] Comment on above: Performed By: #### C SANTANA, BMP #### [facility] [address] Electrolyteson 11-03-2021 Chloride [Moles/Vol] 104 mmol/L Normal 95-114 [facility] Comment on above: Performed By: #### C SANTANA, BMP #### [facility] [address] CO2 [Moles/Vol] 28.5 mmol/L Normal 22.0-30.0 [facility] Comment on above: Result Comment: PERF ORMED BY: [place] [address] PATHOLOGIST MANAGING BROKER CLAIRE ANTHONY M.D. Performed By: #### C BC, BMP #### [facility] [address] [place] [address] Potassium [Moles/Vol] 4.2 mmol/L Normal 3.5-5.1 [facility] Comment on above: Performed By: #### Salvatore BC, BMP #### [address] Sodium [Moles/Vol] 139 mmol/L Normal 136-146 [facility] Comment on above: Performed By: #### Salvatore DILLON, BMP #### [address] 11-02-2021 L -- ---- Specimen: [id number] Received: 11/02/21 Status: GARRETT Campuzano Num: [id number] Spec Type: Surgical Subm Dr: Dylan Gatica Jr, DO Tissues: A Gross Only (BONE/TISSUE RT HIP) Procedures: Level 1 Gross ---- Patient Age/Sex Location Account Attending Physician ---- Isabel Waddell 61/F 4N [id number] Dylan Gatiac Jr, DO ---- SPEC NUM: [id number] RECD: 11/02/21 STATUS: GARRETT MAGANAMely NUM: [id number] FRANCISCA: 11/02/[address] [facility] [address]: Dylan Gatica Jr, DO ENTERED: 11/02/[address] [facility] DR: MARTIN TYPE: Surgical DEPT: S ORDERED: Level 1 Gross ORDERED: Level 1 Gross Pathological Diagnosis Bone and soft tissue, right hip, arthroplasty: - Consistent with degenerative joint disease (see Gross Description) Clinical Information Degenerative joint disease, right hip Gross Description Received in 10% neutral buffered formalin, labeled with the patient's name and bone and tissue right hip is a 4.7 x 4.7 x 4 cm femoral head with a 1.5 cm in length x 4.3 cm in diameter emerald neck. The articular cartilage is robert-red with superficial erosion and granularity comprising approximately 80% of the articular surface. Eburnation is identified comprising approximately 10% of the articular surface. Osteophyte formation is identified. The femoral head is sections to reveal yellow-red, firm and focally sclerotic appearing bony cut surfaces. Also received within the container is an 8 x 7 x 2 cm aggregate of red bone curettings, soft tissue and yellow lobulated adipose tissue. No sections are submitted for microscopic evaluation. Gross exam only. (SM/JS) Microscopic Description Gross examination only. [id number] ---- ---- Specimen: [id number] Received: 11/02/21 Status: GARRETT Campuzano Num: [id number] Spec Type: Surgical Subm Dr: Dylan Gatica Jr, DO Tissues: A Gross Only (BONE/TISSUE RT HIP) Procedures: Level 1 Gross ---- Patient: Isabel Waddell [id number] (Continued) ---- Signed (signature on file) Claire Anthony MD 11/02/21 3173 [facility] LeukoReduced RBCon LeukoReduced RBC READY Normal [facility] Type and Screenon 11-02-2021 ABO and Rh group Nom (Bld) Blood group O Rh(D) positive [facility] Comment on above: Order Comment: Trans fuse now? N XR low pelvis w/RT x-table h ipon 11-02-2021 XR low pelvis w/RT x-table hip [facility] [address] XRay Report Signed Patient: Isabel Waddell MR#: [id number] : 1960 Acct:[id number] Age/Sex: 61 / F ADM Date: 11/02/21 Loc: Room: 1G7614-7 Type: [facility] Attending Dr: Dylan Gatica Jr, DO Ordering Provider: Dylan Gatica Jr, DO Date of Service: 11/02/21 XR/XR low pelvis w/RT x-table hip: Total hip, do in PACU Copies to: Dylan Gatica Jr, DO XR low pelvis w/RT x-table hip 11/02/2021 11:03 AM SIGNS AND SYMPTOMS: Follow-up total right hip arthroplasty placement PROTOCOL: Frontal and frog-leg views of the right hip COMPARISON: 10/15/2021 FINDINGS: There has been interval placement of total right hip arthroplasty hardware. There is no evidence of fracture, dislocation, or hardware complication. Postoperative changes are noted in the adjacent soft tissues. The bony ring of the pelvis is intact. Degenerative changes are visualized in the left hip. XR/XR low pelvis w/RT x-table hip IMPRESSION: There has been interval placement of total right hip arthroplasty hardware. There is no evidence of fracture, dislocation, or hardware complication. 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 This test has not been FDA cleared or approved. This test has been authorized by FDA under an Emergency Use Authorization (EUA). This test has been validated in accordance with the FDA's Guidance Document (Policy for Diagnostics Testing in Laboratories Certified to Perform High Complexity Testing under CLIA prior to Emergency Use Authorization for Coronavirus Disease-2019 during the Public Health Emergency) issued on February 17, 2020. This test is only authorized for the duration of time the declaration that circumstances exist justifying the authorization of the emergency use of in vitro diagnostic tests for detection of SARS-CoV-2 virus and/or diagnosis of COVID-19 infection under section 564(b)(1) of the Act, 21 U.S.C. 360bbb-3(b)(1), unless the authorization is terminated or revoked sooner. PERFORMED BY: [place] [address] PATHOLOGIST MANAGING BROKER CLAIRE ANTHONY M.D. Performed By: #### C BC, BMP #### [address] Basic Metabolic Panelon 11-2 Calcium [Mass/Vol] 9.3 mg/dL Normal 8.2-10.2 [facility] Comment on above: Result Comment: PERF ORMED BY: [place] [address] PATHOLOGIST MANAGING BROKER CLAIRE ANTHONY M.D. Performed By: #### C BC, BMP #### [place] [id number] [facility] Chloride [Moles/Vol] 104 mmol/L Normal 95-114 [facility] Comment on above: Performed By: #### C BC, BMP #### [place] [id number] [place] CO2 [Moles/Vol] 28.3 mmol/L Normal 22.0-30.0 [facility] Comment on above: Performed By: #### C BC, BMP #### [facility] [address] Creatinine [Mass/Vol] 0.61 mg/dL Normal 0.44-1.03 [facility] Comment on above: Performed By: #### C BC, BMP #### [address] Estimated GFR ( Damon > 60 [facility] Comment on above: Result Comment: GFR estimated reference range: According to KDOQI guidelines, <60 ml/min/1.73m2 is sufficient to diagnose a patient with chronic kidney disease. Performed By: #### C BC, BMP #### [address] Estimated GFR (Non- Am > 60 [facility] Comment on above: Performed By: #### C BC, BMP #### [address] Glucose [Mass/Vol] 100 mg/dL Normal 70-100 [facility] Comment on above: Result Comment: [place] Glucose Reference Range is dependent on time and content of last meal. Glucose of more than 200 mg/dL in a nonstressed, ambulatory subject supports the diagnosis of Diabetes Mellitus. ADA recommended reference range Performed By: #### C BC, BMP #### [address] Potassium [Moles/Vol] 4.7 mmol/L Normal 3.5-5.1 [facility] Comment on above: Performed By: #### C BC, BMP #### [facility] [address] [place] [id number] [facility] Sodium [Moles/Vol] 140 mmol/L Normal 136-146 [facility] Comment on above: Performed By: #### C BC, BMP #### [address] Urea nitrogen [Mass/Vol] 17 mg/dL Normal 9-23 [facility] Comment on above: Performed By: #### C BC, BMP #### [facility] [address] [place] [address] Complete Blood Count Auto Di ffon 10-15-2021 Basophils (Bld) [#/Vol] 0.0 10*3/uL Normal 0.0-0.2 [facility] Comment on above: Result Comment: PERF ORMED BY: [place] [address] PATHOLOGIST MANAGING BROKER CLAIRE ANTHONY M.D. Performed By: #### C BC, BMP #### [address] Basophils/100 WBC (Bld) 0.4 % Normal . [facility] Comment on above: Performed By: #### C BC, BMP #### [address] Eosinophils (Bld) [#/Vol] 0.1 10*3/uL Normal 0.0-0.45 [facility] Comment on above: Performed By: #### C BC, BMP #### [address] Eosinophils/100 WBC (Bld) 2.1 % Normal . [facility] Comment on above: Performed By: #### C BC, BMP #### [address] Erythrocyte distribution width (RBC) [Ratio] 13.0 % Normal 11.9-15.3 [facility] Comment on above: Performed By: #### C BC, BMP #### [address] Hematocrit (Bld) [Volume fraction] 36.8 % Normal 34.0-46.4 [facility] Comment on above: Performed By: #### C BC, BMP #### [address] Hemoglobin (Bld) [Mass/Vol] 12.4 g/dL Normal 11.8-15.4 [facility] Comment on above: Performed By: #### C BC, BMP #### [facility] [address] [place] [address] [place] Lymphocytes (Bld) [#/Vol] 0.5 10*3/uL Low 1.00-4.8 [facility] Comment on above: Performed By: #### C BC, BMP #### [facility] [address] Lymphocytes/100 WBC (Bld) 18.8 % Normal . [facility] Comment on above: Performed By: #### C BC, BMP #### [facility] [address] MCH (RBC) [Entitic mass] 31.3 pg Normal 24.7-34.3 [facility] Comment on above: Performed By: #### C BC, BMP #### [address] MCV (RBC) [Entitic vol] 92.8 fL Normal 80-100 [facility] Comment on above: Performed By: #### C BC, BMP #### [address] Mean Corpuscular HGB Conc 33.7 g/dL Normal 32.0-35.0 [facility] Comment on above: Performed By: #### C BC, BMP #### [place] [address] [place] Monocytes (Bld) [#/Vol] 0.3 10*3/uL Normal 0.0-0.8 [facility] Comment on above: Performed By: #### C BC, BMP #### [place] [address] [place] Monocytes/100 WBC (Bld) 10.8 % Normal . [facility] Comment on above: Performed By: #### C BC, BMP #### [address] Neutrophils (Bld) [#/Vol] 1.9 10*3/uL Normal 1.8-7.7 [facility] Comment on above: Performed By: #### C BC, BMP #### [facility] [address] Neutrophils/100 WBC (Bld) 67.9 % Normal . [facility] Comment on above: Performed By: #### C BC, BMP #### [facility] [address] [place] [address] [place] Nucleated RBC/100 WBC (Bld) [Ratio] 0.1 % Normal 0-0.5 [facility] Comment on above: Performed By: #### C BC, BMP #### [address] Platelet mean volume (Bld) [Entitic vol] 7.4 fL Normal 6.3-10.7 [facility] Comment on above: Performed By: #### C BC, BMP #### [address] Platelets (Bld) [#/Vol] 198 10*3/uL Normal 150-450 [facility] Comment on above: Performed By: #### C BC, BMP #### [place] [address] [place] RBC (Bld) [#/Vol] 3.97 10*6/uL Normal 3.60-5.00 [facility] Comment on above: Performed By: #### C BC, BMP #### [place] [address] [place] WBC (Bld) [#/Vol] 2.8 10*3/uL Low 4.5-11.0 [facility] Comment on above: Performed By: #### C BC, BMP #### [place] [address] [place] Dipstick and Microscopicon 1 12-15-2020 Appearance (U) Turbid Critically abnormal Clear [facility] Comment on above: Order Comment: Name Collection Type:: Clean-Voided Midstream Performed By: #### A DDONUAPLUS #### [place] [address] [place] Bacteria,Urine None Seen Normal None Seen [facility] Comment on above: Order Comment: Name Collection Type:: Clean-Voided Midstream Performed By: #### A DDONUAPLUS #### [facility] [address] [place] [address] [place] Bilirubin,Urine Negative Normal Negative [facility] Comment on above: Order Comment: Name Collection Type:: Clean-Voided Midstream Performed By: #### A DDONUAPLUS #### [facility] [address] [place] [address] [place] Color (U) Yellow Normal Yellow [facility] Comment on above: Order Comment: Name Collection Type:: Clean-Voided Midstream Performed By: #### A DDONUAPLUS #### [facility] [address] [place] [address] Glucose Ql (U) Normal Normal Normal [facility] Comment on above: Order Comment: Name Collection Type:: Clean-Voided Midstream Performed By: #### A DDONUAPLUS #### [place] [address] [place] Hyaline Casts,Urine None Seen Normal 0-8 [facility] Comment on above: Order Comment: Name Collection Type:: Clean-Voided Midstream Result Comment: PERF ORMED BY: [place] [address] PATHOLOGIST MANAGING BROKER CLAIRE ANTHONY M.D. Performed By: #### A DDONUAPLUS #### [facility] [address] [place] [address] Ketones Ql (U) Negative Normal Negative [facility] Comment on above: Order Comment: Name Collection Type:: Clean-Voided Midstream Performed By: #### A DDONUAPLUS #### [facility] [address] [place] [address] [place] Leukocyte esterase Test strip Ql (U) 1+ High Negative [facility] Comment on above: Order Comment: Name Collection Type:: Clean-Voided Midstream Performed By: #### A DDONUAPLUS #### [facility] [address] [place] [address] [place] Nitrite,Urine Negative Normal Negative [facility] Comment on above: Order Comment: Name Collection Type:: Clean-Voided Midstream Performed By: #### A DDONUAPLUS #### [address] Occult Blood,Urine Negative Normal Negative [facility] Comment on above: Order Comment: Name Collection Type:: Clean-Voided Midstream Result Comment: PERF ORMED BY: [place] [address] PATHOLOGIST MANAGING BROKER CLAIRE ANTHONY M.D. Performed By: #### A DDONUAPLUS #### [address] pH (U) 7.5 [pH] Normal 5.0-9.0 [facility] Comment on above: Order Comment: Name Collection Type:: Clean-Voided Midstream Performed By: #### A DDONUAPLUS #### [place] [address] [place] Protein,Urine Negative Normal Negative [facility] Comment on above: Order Comment: Name Collection Type:: Clean-Voided Midstream Performed By: #### A DDONUAPLUS #### [address] RBC,Urine 1-2 Normal 0-4 [facility] Comment on above: Order Comment: Name Collection Type:: Clean-Voided Midstream Performed By: #### A DDONUAPLUS #### [place] [address] [place] Specificy [place],Urine 1.017 Normal 1.001-1.030 [facility] Comment on above: Order Comment: Name Collection Type:: Clean-Voided Midstream Performed By: #### A DDONUAPLUS #### [place] [address] [place] Squamous Epithelial Cell,Urine None Seen Normal 0-2 [facility] Comment on above: Order Comment: Name Collection Type:: Clean-Voided Midstream Performed By: #### A DDONUAPLUS #### [address] Urobilinogen,Urine Normal Normal Normal [facility] Comment on above: Order Comment: Name Collection Type:: Clean-Voided Midstream Performed By: #### A DDONUAPLUS #### [facility] [address] [place] [address] WBC,Urine 3-4 Normal 0-4 [facility] Comment on above: Order Comment: Name Collection Type:: Clean-Voided Midstream Performed By: #### A DDONUAPLUS #### [facility] [address] [place] [address] PST Type and Screenon 2020 ABO and Rh group Nom (Bld) Blood group O Rh(D) positive Normal [facility] Comment on above: Order Comment: Date of Surgery: [id number] # of PRBC units on hold?: 2 Result Comment: PERF ORMED BY: [place] [address] PATHOLOGIST MANAGING BROKER CLAIRE ANTHONY M.D. XR hip RT min 2V(w/wo pelvis )*on 10-15-2021 XR hip RT min 2V(w/wo pelvis)* [facility] [place] [address] [place] [address] XRay Report Signed Patient: Isabel Waddell MR#: [id number] : 1960 Acct:[id number] Age/Sex: 61 / F ADM Date: 10/15/21 Loc: Room: Type: [facility] Attending Dr: Dylan Gatica Jr, DO Ordering Provider: Dylan Gatica Jr, DO Date of Service: 10/15/21 XR/XR hip RT min 2V(w/wo pelvis)*: DJD RT HIP Copies to: Dylan Gatica Jr, DO 2 views RIGHT hip plain film COMPARISON:None HISTORY:RIGHT hip pain for years. RIGHT hip joint space narrowing present. Marginal spurring identified. Articular surfaces preserved. No fracture or dislocation. No soft tissue abnormality. XR/XR hip RT min 2V(w/wo pelvis)* IMPRESSION:Advanced RIGHT hip degeneration. Impression dictated by: Yusef Fernandez M.D.10/15/2021 2:21 PM Dictation Location: [facility] Transcribed By: [facility] 10/15/211420 Dictated By: Yusef Fernandez DO 10/15/211419 Signed By: 10/15/211420 [facility] XR tibia/fibula BIon 021 XR tibia/fibula BI [facility] [place] [address] XRay Report Signed Patient: Isabel Waddell MR#: [id number] : 1960 Acct:[id number] Age/Sex: 61 / F ADM Date: 08/22/21 Loc: ICXD Room: Type: [facility] Attending Dr: Dylan Gatica Jr, DO Ordering Provider: Dylan Gatica Jr, DO Date of Service: 08/22/21 XR/XR femur BI: PST ([id number]) XR/XR tibia/fibula BI: PST Copies to: Dylan Gatica Jr, DO BILATERAL TIB-FIB AND FEMUR (leg length study) - 1 views each CLINICAL DATA: Preoperative planning for right hip replacement. COMPARISON: None Standing AP view of the femur and tib-fib on both sides using a long cassette was obtained. There is no acute fracture or dislocation. There is narrowing of the superior hip joint space on the right. There is also marginal spurring at the femoral head on that side. At the knees, there is mild medial tibiofemoral joint space narrowing, right greater than left. There is minor marginal spurring. No degenerative changes are present at the ankles. From the superior acetabulum to the talar dome on both sides, the leg length is within 2 mm. The SI joints are intact. There is subtle dextro scoliotic curvature and degenerative change at the lower imaged lumbar spine. No soft tissue abnormalities are seen. XR/XR femur BI IMPRESSION: DEGENERATIVE CHANGES, DESCRIBED. Impression dictated by: Mckayla Rai M.D.08/22/2021 3:17 PM Dictation Location: [facility] Transcribed By: JULIO 08/22/21 151 Dictated By: Mckayla Rai MD 08/22/21 151 Signed By: 08/22/211516 [facility] Basic Metabolic Panelon 10-0 Calcium [Mass/Vol] 9.1 mg/dL Normal 8.2-10.2 [facility] Comment on above: Result Comment: PERF ORMED BY: [place] [address] PATHOLOGIST MANAGING BROKER CLAIRE ANTHONY M.D. Performed By: #### C BC, BMP #### [facility] [address] [place] [address] Chloride [Moles/Vol] 102 mmol/L Normal 95-114 [facility] Comment on above: Performed By: #### C BC, BMP #### [address] CO2 [Moles/Vol] 27.8 mmol/L Normal 22.0-30.0 [facility] Comment on above: Performed By: #### C BC, BMP #### [address] Creatinine [Mass/Vol] 0.63 mg/dL Normal 0.44-1.03 [facility] Comment on above: Performed By: #### C BC, BMP #### [address] Estimated GFR ( Damon > 60 [facility] Comment on above: Result Comment: GFR estimated reference range: According to KDOQI guidelines, <60 ml/min/1.73m2 is sufficient to diagnose a patient with chronic kidney disease. Performed By: #### C BC, BMP #### [place] [address] [place] Estimated GFR (Non- Am > 60 [facility] Comment on above: Performed By: #### C BC, BMP #### [place] [address] [place] Glucose [Mass/Vol] 101 mg/dL High 70-100 [facility] Comment on above: Result Comment: [place] Glucose Reference Range is dependent on time and content of last meal. Glucose of more than 200 mg/dL in a nonstressed, ambulatory subject supports the diagnosis of Diabetes Mellitus. ADA recommended reference range Performed By: #### C BC, BMP #### [address] Potassium [Moles/Vol] 4.2 mmol/L Normal 3.5-5.1 [facility] Comment on above: Performed By: #### C BC, BMP #### [address] Sodium [Moles/Vol] 138 mmol/L Normal 136-146 [facility] Comment on above: Performed By: #### C BC, BMP #### [address] Urea nitrogen [Mass/Vol] 18 mg/dL Normal 9-23 [facility] Comment on above: Performed By: #### C BC, BMP #### [address] Complete Blood Count Auto Di ffon 08-20-2021 Basophils (Bld) [#/Vol] 0.0 10*3/uL Normal 0.0-0.2 [facility] Comment on above: Result Comment: PERF ORMED BY: [place] [address] PATHOLOGIST MANAGING BR[employer]ER CLAIRE ANTHONY M.D. Performed By: #### C BC, BMP #### [place] [address] [place] Basophils/100 WBC (Bld) 0.1 % Normal . [facility] Comment on above: Performed By: #### C BC, BMP #### [place] [address] [place] Eosinophils (Bld) [#/Vol] 0.1 10*3/uL Normal 0.0-0.45 [facility] Comment on above: Performed By: #### C BC, BMP #### [place] [address] [place] Eosinophils/100 WBC (Bld) 2.5 % Normal . [facility] Comment on above: Performed By: #### C BC, BMP #### [address] Erythrocyte distribution width (RBC) [Ratio] 13.6 % Normal 11.9-15.3 [facility] Comment on above: Performed By: #### C BC, BMP #### [address] Hematocrit (Bld) [Volume fraction] 34.5 % Normal 34.0-46.4 [facility] Comment on above: Performed By: #### C BC, BMP #### [address] Hemoglobin (Bld) [Mass/Vol] 11.9 g/dL Normal 11.8-15.4 [facility] Comment on above: Performed By: #### C BC, BMP #### [address] Lymphocytes (Bld) [#/Vol] 0.6 10*3/uL Low 1.00-4.8 [facility] Comment on above: Performed By: #### C BC, BMP #### [address] Lymphocytes/100 WBC (Bld) 15.9 % Normal . [facility] Comment on above: Performed By: #### C BC, BMP #### [address] MCH (RBC) [Entitic mass] 31.3 pg Normal 24.7-34.3 [facility] Comment on above: Performed By: #### C BC, BMP #### [address] MCV (RBC) [Entitic vol] 90.5 fL Normal 80-100 [facility] Comment on above: Performed By: #### C BC, BMP #### [address] Mean Corpuscular HGB Conc 34.6 g/dL Normal 32.0-35.0 [facility] Comment on above: Performed By: #### C BC, BMP #### [address] [place] [address] [place] Monocytes (Bld) [#/Vol] 0.5 10*3/uL Normal 0.0-0.8 [facility] Comment on above: Performed By: #### C BC, BMP #### [facility] [address] [place] [address] [place] Monocytes/100 WBC (Bld) 13.2 % Normal . [facility] Comment on above: Performed By: #### C BC, BMP #### [facility] [address] [place] [address] [place] Neutrophils (Bld) [#/Vol] 2.7 10*3/uL Normal 1.8-7.7 [facility] Comment on above: Performed By: #### C SANTANA, BMP #### [facility] [address] [place] [address] [place] Neutrophils/100 WBC (Bld) 68.3 % Normal . [facility] Comment on above: Performed By: #### C SANTANA, BMP #### [facility] [address] [place] [address] [place] Nucleated RBC/100 WBC (Bld) [Ratio] 0.1 % Normal 0-0.5 [facility] Comment on above: Performed By: #### C SANTANA, BMP #### [place] [address] [place] Platelet mean volume (Bld) [Entitic vol] 7.8 fL Normal 6.3-10.7 [facility] Comment on above: Performed By: #### C BC, BMP #### [facility] [address] [place] [address] [place] Platelets (Bld) [#/Vol] 182 10*3/uL Normal 150-450 [facility] Comment on above: Performed By: #### C BC, BMP #### [facility] [address] [place] [address] [place] RBC (Bld) [#/Vol] 3.81 10*6/uL Normal 3.60-5.00 [facility] Comment on above: Performed By: #### C BC, BMP #### [facility] [address] WBC (Bld) [#/Vol] 4.0 10*3/uL Low 4.5-11.0 [facility] Comment on above: Performed By: #### C BC, BMP #### [facility] [address] [place] [address] [place] Dipstick and Microscopicon 1 Appearance (U) Turbid Critically abnormal Clear [facility] Comment on above: Order Comment: Comme nt urine C S if indicated by UA Name Collection Type:: Clean-Voided Midstream Performed By: #### A DDONUAPLUS #### [facility] [address] [place] [address] Bacteria,Urine None Seen Normal None Seen [facility] Comment on above: Order Comment: Comme nt urine C S if indicated by UA Name Collection Type:: Clean-Voided Midstream Performed By: #### A DDONUAPLUS #### [facility] [address] [place] [address] [place] Bilirubin,Urine Negative Normal Negative [facility] Comment on above: Order Comment: Comme nt urine C S if indicated by UA Name Collection Type:: Clean-Voided Midstream Performed By: #### A DDONUAPLUS #### [facility] [address] [place] [address] Color (U) Yellow Normal Yellow [facility] Comment on above: Order Comment: Comme nt urine C S if indicated by UA Name Collection Type:: Clean-Voided Midstream Performed By: #### A DDONUAPLUS #### [facility] [address] [place] [address] [place] Glucose Ql (U) Normal Normal Normal [facility] Comment on above: Order Comment: Comme nt urine C S if indicated by UA Name Collection Type:: Clean-Voided Midstream Performed By: #### A DDONUAPLUS #### [facility] [address] [place] [address] [place] Hyaline Casts,Urine 0-8 Normal 0-8 [facility] Comment on above: Order Comment: Comme nt urine C S if indicated by UA Name Collection Type:: Clean-Voided Midstream Result Comment: PERF ORMED BY: [place] [address] PATHOLOGIST MANAGING BROKER CLAIRE ANTHONY M.D. Performed By: #### A DDONUAPLUS #### [facility] [address] [place] [address] Ketones Ql (U) Negative Normal Negative [facility] Comment on above: Order Comment: Comme nt urine C S if indicated by UA Name Collection Type:: Clean-Voided Midstream Performed By: #### A DDONUAPLUS #### [address] Leukocyte esterase Test strip Ql (U) 3+ High Negative [facility] Comment on above: Order Comment: Comme nt urine C S if indicated by UA Name Collection Type:: Clean-Voided Midstream Performed By: #### A DDONUAPLUS #### [facility] [address] [place] [address] Nitrite,Urine Negative Normal Negative [facility] Comment on above: Order Comment: Comme nt urine C S if indicated by UA Name Collection Type:: Clean-Voided Midstream Performed By: #### A DDONUAPLUS #### [address] Occult Blood,Urine Negative Normal Negative [facility] Comment on above: Order Comment: Comme nt urine C S if indicated by UA Name Collection Type:: Clean-Voided Midstream Result Comment: PERF ORMED BY: [place] [address] PATHOLOGIST MANAGING BR[employer]ER CLAIRE ANTHONY M.D. Performed By: #### A DDONUAPLUS #### [facility] [address] [place] [address] pH (U) 8.5 [pH] Normal 5.0-9.0 [facility] Comment on above: Order Comment: Comme nt urine C S if indicated by UA Name Collection Type:: Clean-Voided Midstream Performed By: #### A DDONUAPLUS #### [facility] [address] [place] [address] Protein,Urine Negative Normal Negative [facility] Comment on above: Order Comment: Comme nt urine C S if indicated by UA Name Collection Type:: Clean-Voided Midstream Performed By: #### A DDONUAPLUS #### [address] RBC,Urine 3-4 Normal 0-4 [facility] Comment on above: Order Comment: Comme nt urine C S if indicated by UA Name Collection Type:: Clean-Voided Midstream Performed By: #### A DDONUAPLUS #### [address] Specificy [place],Urine 1.016 Normal 1.001-1.030 [facility] Comment on above: Order Comment: Comme nt urine C S if indicated by UA Name Collection Type:: Clean-Voided Midstream Performed By: #### A DDONUAPLUS #### [facility] [address] [place] [address] Squamous Epithelial Cell,Urine 0-1 Normal 0-2 [facility] Comment on above: Order Comment: Comme nt urine C S if indicated by UA Name Collection Type:: Clean-Voided Midstream Performed By: #### A DDONUAPLUS #### [facility] [address] [place] [address] Urobilinogen,Urine Normal Normal Normal [facility] Comment on above: Order Comment: Comme nt urine C S if indicated by UA Name Collection Type:: Clean-Voided Midstream Performed By: #### A DDONUAPLUS #### [facility] [address] [place] [address] [place] WBC,Urine 20-49 High 0-4 [facility] Comment on above: Order Comment: Comme nt urine C S if indicated by UA Name Collection Type:: Clean-Voided Midstream Performed By: #### A DDONUAPLUS #### [facility] [address] [place] [address] ECG 12 lead ECGon 08-20-2021 ECG 12 lead ECG [facility] Main [address] [address] Electrocardiograph Report Signed Patient: Isabel Waddell MR#: [id number] : 1960 Acct:[id number] Age/Sex: 61 / F ADM Date: 08/20/21 Loc: PS Room: Type: [facility] Attending Dr: Dylan Gatica Jr, DO Ordering Provider: Dylan Gatica Jr, DO Date of Service: 08/20/2103/07/1035 ECG/ECG 12 lead ECG: surgery 09/06/21 Copies to: Test Reason : Blood Pressure : / mmHG Vent. Rate : 068 BPM Atrial Rate : 068 BPM P-R Int : 182 ms QRS Dur : 078 ms QT Int : 408 ms P-R-T Axes : 063 082 068 degrees QTc Int : 433 ms Normal sinus rhythm Nonspecific ST abnormality Abnormal ECG When compared with ECG of 06-SEP-2020 08:27, MT interval has decreased T wave amplitude has increased in Inferior leads Confirmed by YUSEF GIRALDO DO ([id number]) on 08/20/2021 4:50:03 PM Referred By: LAURA Electronically Signed By:YUSEF GIRALDO DO Transcribed By: MUS Signed By Yusef Giraldo DO 08/20 1650 Normal [facility] PST Type and Screenon 2020 ABO and Rh group Nom (Bld) Blood group O Rh(D) positive Normal [facility] Comment on above: Order Comment: Date of Surgery: [id number] # of PRBC units on hold?: 2 Result Comment: PERF ORMED BY: [place] [id number] PATHOLOGIST MANAGING BR[employer]ER CLAIRE ANTHONY M.D. Urine Cultureon 08-20-2021 Bacteria identified Cx Nom (U) Comment do C S if indicated by UA ORGANISM: Staphylococcus aureus (O:STAAUR) Yarnell Count 30,000 Aerobic MARELY Charge (PC45) --- SUSCEPTIBILITY -- ORGANISM: O:STAAUR ANTIBIOTIC INTERPRETATION MARELY Amoxacillin/K Clavulanate S <4/2 Ampicillin/Sulbactam S <8/4 Cefazolin S <8 Ceftaroline S <0.5 Ceftriaxone S <8 Ciprofloxacin S <1 Daptomycin S <1 Levofloxacin S <1 Linezolid S <2 Nitrofurantoin S <32 Oxacillin S <0.25 Penicillin S <0.03 Piperacillin/Tazobacta m S <4 Rifampin S <1 Tetracycline S <4 Trimethoprim/Sulfameth oxazole S <0.5/9.5 Vancomycin S <0.5 S = SUSCEPTIBLE I = INTERMEDIATE R = RESISTANT BLANK = DATA NOT AVAILABLE, OR DRUG NOT ADVISABLE OR TESTED R* = RESISTANCE DUE TO EXTENDED SPECTRUM BETA-LACTAMASES ESBL = EXTENDED SPECTRUM BETA-LACTAMASE TFG = THYMIDINE-DEPENDENT STRAIN JUSTIN = BETA-LACTAMASE POSITIVE IB = INDUCIBLE BETA-LACTAMASE. APPEARS IN PLACE OF 'S' WITH SPECIES KNOWN TO POSSESS INDUCIBLE BETA-LACTAMASES. POTENTIALLY THEY MAY BECOME RESISTANT TO ALL B-LACTAM DRUGS. PERFORMED BY: [place] [address] PATHOLOGIST MANAGING BROKER CLAIRE ANTHONY M.D. [facility] Comment on above: Performed By: #### C UU #### [address] Cult,Urineon 07-08-2021 Cult,Urine Specimen Description .URINE Special Requests NOT REPORTED Culture NO SIGNIFICANT GROWTH Report Status FINAL 07/08/2021 [facility] Comment on above: Performed By: #### U #### [facility] [place] [address] Office Machine Technician: Rei Jules MD [facility] [address] [place] [address] Office Machine Technician: Jacob Campos MD CBC Auto DifferentialOrdered By: Mayra Michel on 07-07-2021 [employer] Eos # 0.70 High [facility] Work Phone: Absolute Immature Granulocyte NOT REPORTED [facility] Work Phone: Absolute Lymph # 0.40 Low [facility] Work Phone: Absolute Hodgeman # 0.50 [employer] [facility] Work Phone: Basophils (Bld) [#/Vol] 0.00 10*3/uL [employer] Work Phone: Basophils/100 WBC (Bld) 1 % 0 - 2 % [employer] Phone: Differential Type YES [facility] Work Phone: Eosinophils/100 WBC (Bld) 14 % High 0 - 5 % [employer] Phone: Hematocrit (Bld) [Volume fraction] 40.1 % 36 - 46 % [employer] Phone: Hemoglobin.gastrointes tinal spec 1 Ql (Stl) 13.8 g/dL 12.0 - 16.0 g/dL [employer] Phone: Immature Granulocytes NOT REPORTED 0 % [employer] Work Phone: Interpretation and review of laboratory results Abnormal [employer] Phone: Lymphocytes/100 WBC (Bld) 8 % Low 15 - 40 % [employer] Phone: MCH (RBC) [Entitic mass] 30.7 pg 26 - 34 pg [employer] Phone: MCHC (RBC) [Mass/Vol] 34.5 g/dL 31 - 37 g/dL [employer] Work Phone: MCV (RBC) [Entitic vol] 89.1 fL 80 - 100 fL [employer] Phone: Monocytes/100 WBC (Bld) 10 % High 4 - 8 % [employer] Phone: NRBC Automated NOT REPORTED per 100 WBC [facility] Work Phone: Platelet distribution width (Bld) [Ratio] 13.0 % 12.1 - 15.2 % [employer] Phone: Platelet Estimate NOT REPORTED [employer] Phone: Platelet mean volume (Bld) [Entitic vol] NOT REPORTED 6.0 - 12.0 fL [employer] Phone: Platelets (Bld) [#/Vol] 157 10*3/uL [employer] Phone: RBC (Bld) [#/Vol] 4.50 10*6/uL 4.0 - 5.2 m/uL [employer] Phone: RBC (Bld) [#/Vol] NOT REPORTED [employer] Phone: Segmented neutrophils/100 WBC (Bld) 67 % 47 - 75 % [employer] Phone: Segs Absolute 3.40 [employer] Work Phone: WBC (Bld) [#/Vol] 5.1 10*3/uL [employer] Phone: WBC (Bld) [#/Vol] NOT REPORTED [employer] Phone: [employer] Phone: CBC with Diffon 07-07-2021 Abs. Basophil 0.00 k/uL Normal 0.0-0.2 [facility] Comment on above: Performed By: #### C DP, CP #### [facility] [address] [place] [address] Office Machine Technician: Jacob Campos MD Abs.Neutrophil (Seg) 3.40 k/uL Normal 2.5-7.0 [facility] Comment on above: Performed By: #### C DP, CP #### [facility] [address] [place] [address] Office Machine Technician: Jacob Campos MD Auto Diff Performed YES Normal [facility] Comment on above: Performed By: #### C DP, CP #### [facility] [address] [place], [place] [phone] Office Machine Technician: Jacob Campos MD Basophils/100 WBC (Bld) 1 % Normal 0-2 [facility] Comment on above: Performed By: #### C DP, CP #### [facility] [address] [place], [place] [id number] Office Machine Technician: Jacob Campos MD Eosinophils (Bld) [#/Vol] 0.70 10*3/uL High 0.0-0.4 [facility] Comment on above: Performed By: #### C DP, CP #### [facility] [address] [place], [place] [phone] Office Machine Technician: Jacob Campos MD Eosinophils/100 WBC (Bld) 14 % High 0-5 [facility] Comment on above: Performed By: #### C DP, CP #### [facility] [address] [place], [place] [id number] Office Machine Technician: Jacob Campos MD Erythrocyte distribution width (RBC) [Ratio] 13.0 % Normal 12.1-15.2 [facility] Comment on above: Performed By: #### C DP, CP #### [facility] [address] [place], [place] [phone] Office Machine Technician: Jacob Campos MD Hematocrit (Bld) [Volume fraction] 40.1 % Normal 36-46 [facility] Comment on above: Performed By: #### C DP, CP #### [facility] [address] [place], [place] [phone] Office Machine Technician: Jacob Campos MD Hemoglobin (Bld) [Mass/Vol] 13.8 g/dL Normal 12.0-16.0 [facility] Comment on above: Performed By: #### C DP, CP #### [facility] [address] [place], [place] [phone] Office Machine Technician: Jacob Campos MD Lymphocytes (Bld) [#/Vol] 0.40 10*3/uL Low 1.0-4.8 [facility] Comment on above: Performed By: #### C DP, CP #### [facility] [address] [place], [place] [phone] Office Machine Technician: Jacob Campos MD Lymphocytes/100 WBC (Bld) 8 % Low 15-40 [facility] Comment on above: Performed By: #### C DP, CP #### [facility] [address] [place], [place] [id number] Office Machine Technician: Jacob Campos MD MCH (RBC) [Entitic mass] 30.7 pg Normal 26-34 [facility] Comment on above: Performed By: #### C DP, CP #### [facility] [address] [place] [address] Office Machine Technician: Jacob Campos MD MCHC (RBC) [Mass/Vol] 34.5 g/dL Normal 31-[address] [facility] Comment on above: Performed By: #### C DP, CP #### [facility] [address] [place] [address] Office Machine Technician: Jacob Campos MD MCV (RBC) [Entitic vol] 89.1 fL Normal 80-100 [facility] Comment on above: Performed By: #### C DP, CP #### [facility] [address] [place] [address] Office Machine Technician: Jacob Campos MD Monocytes (Bld) [#/Vol] 0.50 10*3/uL Normal 0.0-1.0 [facility] Comment on above: Performed By: #### C DP, CP #### [facility] [address] [place] [address] Office Machine Technician: Jacob Campos MD Monocytes/100 WBC (Bld) 10 % High 4-8 [facility] Comment on above: Performed By: #### C DP, CP #### [facility] [address] [place] [address] Office Machine Technician: Jacob Campos MD Neutrophil (Seg) 67 % Normal 47-75 [facility] Comment on above: Performed By: #### C DP, CP #### [facility] [address] [place] [address] Office Machine Technician: Jacob Campos MD Platelets (Bld) [#/Vol] 157 10*3/uL Normal 140-450 [facility] Comment on above: Performed By: #### C DP, CP #### [facility] [address] [place] [address] Office Machine Technician: Jacob Campos MD RBC (Bld) [#/Vol] 4.50 10*6/uL Normal 4.0-5.2 [facility] Comment on above: Performed By: #### C DP, CP #### [facility] [address] [place] [address] Office Machine Technician: Jacob Campos MD WBC (Bld) [#/Vol] 5.1 10*3/uL Normal 3.5-11.0 [facility] Comment on above: Performed By: #### C DP, CP #### [facility] [address] [place] [address] Office Machine Technician: Jacob Campos MD Abs.Imm.Granulocyte NOT REPORTED Normal 0.00-0.[address] [facility] Comment on above: Performed By: #### C DP, CP #### [facility] [address] [place] [address] Office Machine Technician: Jacob Campos MD Immature Granulocyte NOT REPORTED Normal 0 [facility] Comment on above: Performed By: #### C DP, CP #### [facility] [address] [place] [address] Office Machine Technician: Jacob Campos MD MPV NOT REPORTED Normal 6.0-12.0 [facility] Comment on above: Performed By: #### C DP, CP #### [facility] [address] [place] [address] Office Machine Technician: Jacob Campos MD NRBC Automated NOT REPORTED Normal [facility] Comment on above: Performed By: #### C DP, CP #### [facility] [address] [place] [address] Office Machine Technician: Jacob Campos MD Platelet Estimate NOT REPORTED Normal [facility] Comment on above: Performed By: #### C DP, CP #### [facility] [address] [place], [place] [phone] Office Machine Technician: Jacob Campos MD RBC morphology finding Nom (Bld) NOT REPORTED Normal [facility] Comment on above: Performed By: #### C DP, CP #### [facility] [address] [place] [address] Office Machine Technician: Jacob Campos MD WBC Morphology NOT REPORTED Normal [facility] Comment on above: Performed By: #### C DP, CP #### [facility] [address] [place] [address] Office Machine Technician: Jacob Campos MD Comp Metabolic Profon 2020 (cont.) Normal [facility] Comment on above: Result Comment: Aver age GFR for 60-69 years old: 85 mL/min/1.73sq m Chronic Kidney Disease: <60 mL/min/1.73sq m Kidney failure: <15 mL/min/1.73sq m eGFR calculated using average adult body mass. Additional eGFR calculator available at: http://www.[employer].Xiaoying/multiple_crcl_2012.htm Performed By: #### C DP, CP #### [facility] [address] [place] [address] Office Machine Technician: Jacob Campos MD Albumin [Mass/Vol] 3.9 g/dL Normal 3.5-5.2 [facility] Comment on above: Performed By: #### C DP, CP #### [facility] [address] [place] [address] Office Machine Technician: Jacob Campos MD Alkaline Phos 94 U/L Normal 35-104 [facility] Comment on above: Performed By: #### C DP, CP #### [facility] [address] [place] [address] Office Machine Technician: Jacob Campos MD ALT [Catalytic activity/Vol] 31 U/L Normal 5-33 [facility] Comment on above: Performed By: #### C DP, CP #### [facility] [address] [place] [address] Office Machine Technician: Jacob Campos MD Anion gap [Moles/Vol] 10 mmol/L Normal 9-[address] [facility] Comment on above: Performed By: #### C DP, CP #### [facility] [address] [place] [address] Office Machine Technician: Jacob Campos MD AST [Catalytic activity/Vol] 28 U/L Normal <32 [facility] Comment on above: Performed By: #### C DP, CP #### [facility] [address] [place] [address] Office Machine Technician: Jacob Campos MD Bilirubin [Mass/Vol] 0.46 mg/dL Normal 0.30-1.20 [facility] Comment on above: Performed By: #### C DP, CP #### [facility] [address] [place] [address] Office Machine Technician: Jacob Campos MD BUN/CRE Ratio 27 High 9-20 [facility] Comment on above: Performed By: #### C DP, CP #### [facility] [address] [place], [place] [phone] Office Machine Technician: Jacob Campos MD Calcium [Mass/Vol] 9.7 mg/dL Normal 8.6-10.4 [facility] Comment on above: Performed By: #### C DP, CP #### [facility] [address] [place], [place] [phone] Office Machine Technician: Jacob Campos MD Chloride [Moles/Vol] 107 mmol/L Normal 98-107 [facility] Comment on above: Performed By: #### C DP, CP #### [facility] [address] [place], [place] [phone] Office Machine Technician: Jacob Campos MD CO2 [Moles/Vol] 25 mmol/L Normal 20-31 [facility] Comment on above: Performed By: #### C DP, CP #### [facility] [address] [place], [place] [phone] Office Machine Technician: Jacob Campos MD Creatinine [Mass/Vol] 0.60 mg/dL Normal 0.50-0.[address] [facility] Comment on above: Performed By: #### C DP, CP #### [facility] [address] [place], [place] [id number] Office Machine Technician: Jacob Campos MD GFR, Amer >60 Normal >60 [facility] Comment on above: Performed By: #### C DP, CP #### [facility] [address] [place], [place] [phone] Office Machine Technician: Jacob Campos MD GFR,non Amer >60 Normal >60 [facility] Comment on above: Performed By: #### C DP, CP #### [facility] [address] [place], [place] [phone] Office Machine Technician: Jacob Campos MD Glucose [Mass/Vol] 122 mg/dL High 70-99 [facility] Comment on above: Performed By: #### C DP, CP #### [facility] [address] [place] [address] Office Machine Technician: Jacob Campos MD Potassium [Moles/Vol] 3.8 mmol/L Normal 3.7-5.[address] [facility] Comment on above: Performed By: #### C DP, CP #### [facility] [address] [place], [place] [phone] Office Machine Technician: Jacob Campos MD Protein [Mass/Vol] 6.9 g/dL Normal 6.4-8.3 [facility] Comment on above: Performed By: #### C DP, CP #### [facility] [address] [place] [address] Office Machine Technician: Jacob Campos MD Sodium [Moles/Vol] 142 mmol/L Normal 135-144 [facility] Comment on above: Performed By: #### C DP, CP #### [facility] [address] [place], [place] [id number] Office Machine Technician: Jacob Campos MD Urea nitrogen [Mass/Vol] 16 mg/dL Normal 8-23 [facility] Comment on above: Performed By: #### C DP, CP #### [facility] [address] [place] [address] Office Machine Technician: Jacob Campos MD Albumin/Glob Ratio NOT REPORTED Normal 1.0-2.5 [facility] Comment on above: Performed By: #### C DP, CP #### [facility] [address] [place], [place] [phone] Office Machine Technician: Jacob Campos MD Staging: NOT REPORTED Normal [facility] Comment on above: Performed By: #### C DP, CP #### [facility] [address] [place] [address] Office Machine Technician: Jacob Campos MD Comprehensive Metabolic Pane lOrdered By: Mayra Michel on 07-07-2021 Albumin [Mass/Vol] 3.9 g/dL 3.5 - 5.2 g/dL [employer] Phone: Albumin/Globulin Ratio NOT REPORTED [employer] Phone: ALP (Bld) [Catalytic activity/Vol] 94 U/L 35 - 104 U/L [employer] Phone: ALT [Catalytic activity/Vol] 31 U/L 5 - 33 U/L [employer] Phone: Anion gap [Moles/Vol] 10 mmol/L 9 - 17 mmol/L [employer] Phone: AST [Catalytic activity/Vol] 28 U/L <32 [employer] Phone: Bilirubin [Mass/Vol] 0.46 mg/dL 0.30 - 1.20 mg/dL [employer] Phone: Calcium [Mass/Vol] 9.7 mg/dL 8.6 - 10. 4 mg/dL [employer] Phone: Chloride [Moles/Vol] 107 mmol/L 98 - 10 7 mmol/L [employer] Phone: CO2 [Moles/Vol] 25 mmol/L 20 - 31 mmol/L [employer] Phone: Creatinine [Mass/Vol] 0.6 mg/dL 0.50 - 0.90 mg/dL [employer] Phone: Free PSA/Total PSA [Mass fraction] 6.9 g/dL 6.4 - 8.3 g/dL [employer] Phone: GFR >60 >60 mL/min [employer] Phone: GFR Non- >60 >60 mL/min [employer] Phone: GFR/1.73 sq M.predicted MDRD (S/P/Bld) [Vol rate/Area] [employer] Phone: Comment on above: Average GFR for 60-6 9 years old: 85 mL/min/1.73sq m Chronic Kidney Disease: <60 mL/min/1.73sq m Kidney failure: <15 mL/min/1.73sq m eGFR calculated using average adult body mass. Additional eGFR calculator available at: http://www.[employer]IE[employer]/multiple_crcl_2012.htm GFR/1.73 sq M.predicted MDRD (S/P/Bld) [Vol rate/Area] NOT REPORTED [employer] Phone: Glucose [Mass/Vol] 122 mg/dL High 70 - 99 mg/dL [employer] Phone: Interpretation and review of laboratory results Abnormal [employer] Phone: Potassium [Moles/Vol] 3.8 mmol/L 3.7 - 5.3 mmol/L [employer] Phone: Sodium [Moles/Vol] 142 mmol/L 135 - 144 mmol/L [employer] Phone: Urea nitrogen (BldV) [Mass/Vol] 16 mg/dL 8 - 23 mg/dL [employer] Phone: Urea nitrogen/Creatinine (Bld) [Mass ratio] 27 High [employer] Phone: [employer] Phone: Microscopic UrinalysisOrdere d By: Mayra Michel on 07-07-2021 - [employer] Phone: Amorphous, UA NOT REPORTED None [employer] [facility] Work Phone: Bacteria, UA 2+ Abnormal None [employer] Phone: Casts UA NOT REPORTED /LPF [employer] Phone: Crystals, UA NOT REPORTED None /HPF [employer] [facility] Work Phone: Epithelial Cells UA 5 TO 10 /HPF [employer] [place] Work Phone: Interpretation and review of laboratory results Abnormal [facility] [place] Work Phone: Mucus, UA 1+ Abnormal None [facility] Work Phone: Other Observations UA NOT REPORTED NOT REQ. M [facility] [place] Work Phone: RBC, UA 5 TO 10 [facility] [place] Work Phone: Renal Epithelial, UA NOT REPORTED 0 /HPF [facility] Work Phone: Trichomonas, UA NOT REPORTED None [facility] Work Phone: WBC, UA 2 TO 5 0 /HPF [facility] [place] Work Phone: Yeast, UA NOT REPORTED None [facility] [place] Work Phone: [facility] Work Phone: UrinalysisOrdered By: Olamide Michel on 07-07-2021 Bilirubin Urine Negative NEGATIVE [facility] Work Phone: Color, UA YELLOW YELLOW [facility] Work Phone: Glucose, Ur Negative NEGATIVE [facility] Work Phone: Interpretation and review of laboratory results Abnormal [facility] Work Phone: Ketones Ql (U) Negative NEGATIVE [facility] [place] Work Phone: Leukocyte esterase Test strip Ql (U) 1+ Abnormal NEGATIVE [facility] [place] Work Phone: Nitrite, Urine Negative NEGATIVE [facility] Work Phone: pH, UA 6.0 [facility] [place] Work Phone: Protein, UA TRACE Abnormal NEGATIVE [facility] [place] Work Phone: Specific [place], UA 1.020 [facility] [place] Work Phone: Turbidity UA CLEAR CLEAR [facility] Work Phone: Urinalysis Comments [facility] Phone: Urine Hgb TRACE Abnormal NEGATIVE [facility] Phone: Urobilinogen, Urine Normal Normal [facility] Phone: [facility] Phone: Urinalysis, Routineon 2020 Bilirubin, SemiQt,Ur Negative Normal NEG [facility] Comment on above: Performed By: #### U MICAO, UA #### [facility] [address] [place] [place] [address] Office Machine Technician: Jacob Campos MD Blood, Urine TRACE Abnormal NEG [facility] Comment on above: Performed By: #### U MICAO, UA #### [facility] [address] [facility] [place] [id number] Office Machine Technician: Jacob Campos MD Clarity (U) CLEAR Normal CLEAR [facility] Comment on above: Performed By: #### U MICAO, UA #### [facility] [address] [facility] [place] [id number] Office Machine Technician: Jacob Campos MD Color (U) YELLOW Normal YEL [facility] Comment on above: Performed By: #### U MICAO, UA #### [facility] [address] [facility] [place] [address] Office Machine Technician: Jacob Campos MD Comment Normal [facility] Comment on above: Performed By: #### U MICAO, UA #### [facility] [address] [facility] [place] [id number] Office Machine Technician: Jacob Campos MD Glucose Ql (U) Negative Normal NEG [facility] Comment on above: Performed By: #### U MICAO, UA #### [facility] [address] [place] [place] [address] Office Machine Technician: Jacob Campos MD Ketones Ql (U) Negative Normal NEG [facility] Comment on above: Performed By: #### U MICAO, UA #### [facility] [address] [place] [address] Office Machine Technician: Jacob Campos MD Leukocyte esterase Test strip Ql (U) 1+ Abnormal NEG [facility] Comment on above: Performed By: #### U MICAO, UA #### [facility] [address] [place] [address] Office Machine Technician: Jacob Campos MD Nitrite,Ur Negative Normal NEG [facility] Comment on above: Performed By: #### U MICAO, UA #### [facility] [address] [place] [address] Office Machine Technician: Jacob Campos MD PH,Ur 6.0 Normal 5.0-8.0 [facility] Comment on above: Performed By: #### U MICAO, UA #### [facility] [address] [place] [address] Office Machine Technician: Jacob Campos MD Protein Ql (U) TRACE Abnormal NEG [facility] Comment on above: Performed By: #### U MICAO, UA #### [facility] [address] [place] [address] Office Machine Technician: Jacob Campos MD Spec. [place],Ur 1.020 Normal 1.005-1.030 [facility] Comment on above: Performed By: #### U MICAO, UA #### [facility] [address] [place] [address] Office Machine Technician: Jacob Campos MD Urobilinogen,Ur Normal Normal NORM [facility] Comment on above: Performed By: #### U MICAO, UA #### [facility] [address] [place] [address] Office Machine Technician: Jacob Campos MD Urinalysis,Microon 1 ----- Normal [facility] Comment on above: Performed By: #### U RICH UA #### [facility] [address] [place], [place] [phone] Office Machine Technician: Jacob Campos MD Bacteria 2+ Abnormal [facility] Comment on above: Performed By: #### U RICH UA #### [facility] [address] [place], [place] [phone] Office Machine Technician: Jacob Campos MD Epithelial cells LM Ql (Urine sed) 5 TO 10 Normal [facility] Comment on above: Performed By: #### U RICH UA #### [facility] [address] [place], [place] [phone] Office Machine Technician: Jacob Campos MD Mucus Strands 1+ Abnormal [facility] Comment on above: Performed By: #### U RICH, UA #### [facility] [address] [place], [place] [phone] Office Machine Technician: Jacob Campos MD Urine RBC's 5 TO 10 Normal 0-2 [facility] Comment on above: Performed By: #### U RICH UA #### [facility] [address] [place], [place] [phone] Office Machine Technician: Jacob Campos MD Urine WBC's 2 TO 5 Normal 0 [facility] Comment on above: Performed By: #### U RICH, UA #### [facility] [address] [place], [place] [phone] Office Machine Technician: Jacob Campos MD Amorphous sediment LM Ql (Urine sed) NOT REPORTED Normal [facility] Comment on above: Performed By: #### U EULALIAO, UA #### [facility] [address] [place], [place] [phone] Office Machine Technician: Jacob Campos MD Casts NOT REPORTED Normal [facility] Comment on above: Performed By: #### U RICH, UA #### [facility] [address] [place], [place] [phone] Office Machine Technician: Jacob Campos MD Crystals LM Nom (Urine sed) NOT REPORTED Normal NONE [facility] Comment on above: Performed By: #### U MICAO, UA #### [facility] [address] [place], [place] [phone] Office Machine Technician: Jacob Campos MD Epithelial, Renal NOT REPORTED Normal 0 [facility] Comment on above: Performed By: #### U MICAO, UA #### [facility] [address] [place], [place] [phone] Office Machine Technician: Jacob Campos MD Other Observations NOT REPORTED Normal NREQ [facility] Comment on above: Performed By: #### U EULALIAO, UA #### [facility] [address] [place], [place] [phone] Office Machine Technician: Jacob Campos MD Trichomonas NOT REPORTED Normal NONE [facility] Comment on above: Performed By: #### U EULALIAO, UA #### [facility] [address] [place], [place] 11240[address] Office Machine Technician: Jacob Campos MD Yeast NOT REPORTED Normal NONE [facility] Comment on above: Performed By: #### U EULALIAO, UA #### [facility] [address] [place], [place] [phone] Office Machine Technician: Jacob Campos MD XR hand RT min 3V*on 021 XR hand RT min 3V* [facility] Main [address] [address] XRay Report Signed Patient: Isabel Waddell MR#: [id number] : 1960 Acct:[id number] Age/Sex: 60 / F ADM Date: 03/28/21 Loc: [facility] Room: Type: [facility] CLI Attending Dr: Sona Hurst MD Ordering Provider: Sona Hurst MD Date of Service: 03/28/21 XR/XR hand RT min 3V*: Primary osteoarthritis, right hand Copies to: Sona Hurst MD RIGHT HAND - 4 views COMPARISON: 12/27/2020 CLINICAL DATA: Follow-up after trapeziectomy and first carpal metacarpal arthroplasty. AP, lateral and oblique views were obtained along with a supplemental AP view of the thumb.. Patient is status post trapeziectomy. There is postoperative and/or degenerative change at the base of the first metacarpal and minimal spurring at the lateral base of the second, similar to the prior. There are some additional minor degenerative changes involving the fingers. There is no acute fracture or dislocation. Minimal soft tissue swelling is seen over the dorsum of the metacarpal carpal heads.. XR/XR hand RT min 3V* IMPRESSION: POSTOPERATIVE CHANGES AT THE LATERAL WRIST. MILD DEGENERATIVE CHANGES. NO NEW ABNORMALITIES. Impression dictated by: Mckayla Rai M.D.03/28/2021 1:26 PM Dictation Location: [place] [address] Transcribed By: [facility] 03/28/21 1326 Dictated By: Mckayla Rai MD 03/28/21 1321 Signed By: 03/28/21 1326 [facility] BIOAVAILABLE TESTOSTERONE FE MALESusie 11-29-2019 Albumin [Mass/Vol] 4.3 g/dL Normal 3.6-5.1 [facility] Comment on above: Result Comment: Age and Gender Specific Reference Interval Applied Interpretive Information: Total Testosterone Reference Interval (ng/dL) Premenopausal 9 - 55 Postmenopausal 5 - 32 Bioavailable Testosterone (ng/dL) Postmenopausal 1.5 - 9.4 Free Testosterone Reference Interval (pg/mL) Postmenopausal 0.6 - 3.8 This test was developed and its performance characteristics determined by [facility] ([facility]). It has not been cleared or approved by the U.S. Food and Drug Administration (FDA). The FDA has determined that such clearance or approval is not necessary. This test is used for clinical purposes and should not be regarded as investigational or for research. [facility] is qualified to perform high complexity testing under the Clinical Laboratory Improvement Amendments (CLIA). Test performed at [facility] [address] [place] [address], [address], [address] [place] [address] Primary Care Sales Representative: Adi Barksdale M.D. CLIA Number [id number] CAP Accreditation Number [id number] ------- Pathology [facility] [address] [place] [address] CLIA No. [id number] CAP Accreditation No. [id number] Primary Care Sales Representative: Isiah Burr M.D. Performed By: #### 1 000, 4500, 4510, 4520, 01819, 5000, 92916, 73075 #### [facility] Unless Otherwise Noted [address] [place] [address] / COLA #4724/CLIA # [id number] SEX HORM BINDING GLOBULIN 56.3 nmol/L Normal 17.3-125.0 [facility] Comment on above: Performed By: #### 1 000, 4500, 4510, 4520, 51888, 5000, 25547, 09128 #### [facility] Unless Otherwise Noted [address] [place] [address] / COL[facility] #4724/CLIA # [id number] TESTOSTERONE BIO FEMALE 2.9 ng/dL Normal 1.5-9.4 [facility] Comment on above: Performed By: #### 1 000, 4500, 4510, 4520, 54664, 5000, 84997, 65806 #### [facility] Unless Otherwise Noted [address] [place] [address] / COL[facility] #4724/CLIA # [id number] TESTOSTERONE FREE FEMALE 1.3 pg/mL Normal 0.6-3.8 [facility] Comment on above: Performed By: #### 1 000, 4500, 4510, 4520, 78810, 5000, 59288, 53331 #### [facility] Unless Otherwise Noted [address] [address] / COL[facility] #4724/CLIA # [id number] TESTOSTERONE, ULTRASENSITIVE 10 ng/dL Normal 9-55 [facility] Comment on above: Performed By: #### 1 000, 4500, 4510, 4520, 46865, 5000, 24080, 14929 #### [facility] Unless Otherwise Noted [address] [address] / COLA #4724/CLIA # [id number] ADRENOCORTICOTROPIC HORMon 0 11-27-2019 ADRENOCORTICOTROPIC HORM 18.1 PG/ML Normal 7.2-63.3 [facility] Comment on above: Result Comment: Reference range established for normal adult patients, morning blood draw (7-10 AM). Certain synthetic ACTH fragments may interfere with this assay. Test performed at [facility] [address] [place] [address] [address] [address] [id number] [facility] Accreditation Number [id number] ------- Performed By: #### 1 000, 4500, 4510, 4520, 50281, 5000, 36004, 51256 #### [facility] Unless Otherwise Noted [address] [address] / COL[facility] #4724/CLIA # [id number] IGF-1on 11-27-2019 IGF-1 151 NG/ML Normal 43-187 [facility] Comment on above: Result Comment: Test performed at [facility] [address] [place] [id number] [facility] Accreditation Number [id number] ------- Performed By: #### 1 000, 4500, 4510, 4520, 56626, 5000, 45297, 60784 #### [facility] Unless Otherwise Noted [address] [place] [address] / COLA #4724/CLIA # [id number] CORTISOL Delonte 11-26-2019 CORTISOL AM 8.6 UG/DL Normal 4.5-22.7 [facility] Comment on above: Performed By: #### 1 000, 4500, 4510, 4520, 60855, 5000, 32109, 13411 #### [facility] Unless Otherwise Noted [address] [place] [address] / COLA #4724/CLIA # [id number] FSHon 11-26-2019 FSH 26.30 mlU/mL Normal [facility] Comment on above: Result Comment: REFE RENCE RANGES FOR FEMALES: OVULATING FEMALE: FOLLICULAR PHASE 1.98-11.6 PEAK 5.14-23.4 LUTEAL PHASE 1.38-9.58 POSTMENOPAUSAL FEMALE 21.5-131 Performed By: #### 4 530, 0200, 4550, 4570 #### [facility] Unless Otherwise Noted [address] [place] [address] / COLA #4724/CLIA # [id number] LHon 11-26-2019 LH 23.00 mIU/ml Normal [facility] Comment on above: Result Comment: REFE RENCE RANGES FOR FEMALE: OVULATING FEMALE: FOLLICULAR PHASE 2.58-12.1 PEAK 27.3-96.9 LUTEAL PHASE 0.83-15.5 POSTMENOPAUSAL FEMALE 13.1-86.5 Performed By: #### 4 530, 4540, 4550, 4577 #### [facility] Unless Otherwise Noted [address] [address] / COLA #4724/CLIA # [id number] PROLACTINon 11-26-2019 PROLACTIN 17.3 ng/ml Normal 2.1-47.6 [facility] Comment on above: Result Comment: IVELISSE ENOPAUSAL FEMALE 2.1 - 47.6 POSTMENOPAUSAL FEMALE 0.0 - 41.4 Performed By: #### 1 000, 4500, 4510, 4520, 76878, 5000, 70563, 06791 #### [facility] Unless Otherwise Noted [address] [address] / COLA #4724/CLIA # [id number] CBC W/AUTO DIFFon 11-25-2019 ABS BASOPHILS 0.0 X10E9/L Normal 0-0.9 [facility] Comment on above: Result Comment: Perf ormed at [facility] [address] [facility] [address] Performed By: #### 1 000, 4500, 4510, 4520, 16113, 5000, 28962, 48843 #### [facility] Unless Otherwise Noted [address] [address] / COLA #4724/CLIA # [id number] ABS NEUTROPHILS 2.6 X10E9/L Normal 1.5-6.6 [facility] Comment on above: Performed By: #### 1 000, 4500, 4510, 4520, 95126, 5000, 35477, 57589 #### [facility] Unless Otherwise Noted [address] [place] [address] / COLA #4724/CLIA # [id number] Basophils/100 WBC (Bld) 0.6 % Normal [facility] Comment on above: Performed By: #### 1 000, 4500, 4510, 4520, 52729, 5000, 50174, 95815 #### [facility] Unless Otherwise Noted [address] [address] / COLA #4724/CLIA # [id number] Eosinophils (Bld) [#/Vol] 0.2 10*3/uL Normal 0.0-0.4 [facility] Comment on above: Performed By: #### 1 000, 4500, 4510, 4520, 25214, 5000, 88422, 13650 #### [facility] Unless Otherwise Noted [address] [place] [address] / COLA #4724/CLIA # [id number] Eosinophils/100 WBC (Bld) 3.1 % Normal [facility] Comment on above: Performed By: #### 1 000, 4500, 4510, 4520, 54846, 5000, 87621, 66256 #### [facility] Unless Otherwise Noted [address] [address] / COLA #4724/CLIA # [id number] Erythrocyte distribution width (RBC) [Ratio] 13.3 % Normal 11.5-14.7 [facility] Comment on above: Performed By: #### 1 000, 4500, 4510, 4520, 75653, 5000, 06266, 52748 #### [facility] Unless Otherwise Noted [address] [address] / COLA #4724/CLIA # [id number] Hematocrit (Bld) [Volume fraction] 39.4 % Normal 35-47 [facility] Comment on above: Performed By: #### 1 000, 4500, 4510, 4520, 29152, 5000, 84228, 85135 #### [facility] Unless Otherwise Noted [address] [address] / COLA #4724/CLIA # [id number] Hemoglobin (Bld) [Mass/Vol] 13.3 g/dL Normal 11.7-16.0 [facility] Comment on above: Performed By: #### 1 000, 4500, 4510, 4520, 52059, 5000, 30968, 73699 #### [facility] Unless Otherwise Noted [address] [address] / COLA #4724/CLIA # [id number] Lymphocytes (Bld) [#/Vol] 1.8 10*3/uL Normal 1.0-3.5 [facility] Comment on above: Performed By: #### 1 000, 4500, 4510, 4520, 48154, 5000, 73265, 69942 #### [facility] Unless Otherwise Noted [address] [address] / COLA #4724/CLIA # [id number] Lymphocytes/100 WBC (Bld) 35.0 % Normal [facility] Comment on above: Performed By: #### 1 000, 4500, 4510, 4520, 54103, 5000, 23485, 84750 #### [facility] Unless Otherwise Noted [address] [address] / COLA #4724/CLIA # [id number] MCH (RBC) [Entitic mass] 31.2 pg Normal 26-33.5 [facility] Comment on above: Performed By: #### 1 000, 4500, 4510, 4520, 05219, 5000, 09511, 50646 #### [facility] Unless Otherwise Noted [address] / COL[facility] #4724/CLIA # [id number] MCHC (RBC) [Mass/Vol] 33.7 g/dL Normal 32-36 [facility] Comment on above: Performed By: #### 1 000, 4500, 4510, 4520, 29626, 5000, 32640, 79486 #### [facility] Unless Otherwise Noted [address] [place] [address] / COLA #4724/CLIA # [id number] MCV (RBC) [Entitic vol] 93 fL Normal 81-100 [facility] Comment on above: Performed By: #### 1 000, 4500, 4510, 4520, 57973, 5000, 99051, 35367 #### [facility] Unless Otherwise Noted [address] / COL[facility] #4724/CLIA # [id number] Monocytes (Bld) [#/Vol] 0.5 10*3/uL Normal 0-0.9 [facility] Comment on above: Performed By: #### 1 000, 4500, 4510, 4520, 90403, 5000, 31274, 04497 #### [facility] Unless Otherwise Noted [address] / COLA #4724/CLIA # [id number] Monocytes/100 WBC (Bld) 10.0 % Normal [facility] Comment on above: Performed By: #### 1 000, 4500, 4510, 4520, 24449, 5000, 83543, 09449 #### [facility] Unless Otherwise Noted [address] [address] / COLA #4724/CLIA # [id number] Neutrophils/100 WBC (Bld) 51.3 % Normal [facility] Comment on above: Performed By: #### 1 000, 4500, 4510, 4520, 26020, 5000, 82036, 42575 #### [facility] Unless Otherwise Noted [address] [address] / COLA #4724/CLIA # [id number] Platelet mean volume (Bld) [Entitic vol] 8.8 fL Normal 7-12 [facility] Comment on above: Performed By: #### 1 000, 4500, 4510, 4520, 57631, 5000, 59246, 08867 #### [facility] Unless Otherwise Noted [address] [address] / COLA #4724/CLIA # [id number] Platelets (Bld) [#/Vol] 225 10*3/uL Normal 150-450 [facility] Comment on above: Performed By: #### 1 000, 4500, 4510, 4520, 41169, 5000, 30301, 54809 #### [facility] Unless Otherwise Noted [address] [address] / COLA #4724/CLIA # [id number] RBC (Bld) [#/Vol] 4.25 X10E12/L Normal 3.80-5.20 [facility] Comment on above: Performed By: #### 1 000, 4500, 4510, 4520, 10626, 5000, 21689, 02233 #### [facility] Unless Otherwise Noted [address] [address] / COLA #4724/CLIA # [id number] WBC (Bld) [#/Vol] 5.1 10*3/uL Normal 4.8-10.8 [facility] Comment on above: Performed By: #### 1 000, 4500, 4510, 4520, 80327, 5000, 64831, 56864 #### [facility] Unless Otherwise Noted [address] [address] / COLA #4724/CLIA # [id number] [facility] 11-25-2019 Albumin [Mass/Vol] 4.2 g/dL Normal 3.5-5.0 [facility] Comment on above: Performed By: #### 1 000, 4500, 4510, 4520, 64456, 5000, 07102, 73958 #### [facility] Unless Otherwise Noted [address] [address] / COLA #4724/CLIA # [id number] ALP [Catalytic activity/Vol] 103.0 U/L Normal 38.0-126.0 [facility] Comment on above: Performed By: #### 1 000, 4500, 4510, 4520, 86462, 5000, 16109, 41021 #### [facility] Unless Otherwise Noted [address] [address] / COLA #4724/CLIA # [id number] ALT [Catalytic activity/Vol] 62.0 U/L Normal 13.0-69.0 [facility] Comment on above: Performed By: #### 1 000, 4500, 4510, 4520, 41275, 5000, 68876, 13078 #### [facility] Unless Otherwise Noted [address] [address] / COLA #4724/CLIA # [id number] Anion gap [Moles/Vol] 4.0 mmol/L Low 10.0-15.0 [facility] Comment on above: Performed By: #### 1 000, 4500, 4510, 4520, 00469, 5000, 45256, 33595 #### [facility] Unless Otherwise Noted [address] [address] / COLA #4724/CLIA # [id number] AST [Catalytic activity/Vol] 30.0 U/L Normal 15.0-46.0 [facility] Comment on above: Performed By: #### 1 000, 4500, 4510, 4520, 35937, 5000, 19973, 10711 #### [facility] Unless Otherwise Noted [address] [address] / COLA #4724/CLIA # [id number] Bilirubin Ql (U) 0.50 mg/dL Normal 0.20-1.30 [facility] Comment on above: Performed By: #### 1 000, 4500, 4510, 4520, 18550, 5000, 57785, 01813 #### [facility] Unless Otherwise Noted [address] [address] / COLA #4724/CLIA # [id number] BUN/Cre Ratio 32.9 Ratio High 7.0-27.0 [facility] Comment on above: Performed By: #### 1 000, 4500, 4510, 4520, 04225, 5000, 95459, 75044 #### [facility] Unless Otherwise Noted [address] [address] / COLA #4724/CLIA # [id number] Calcium [Mass/Vol] 9.5 mg/dL Normal 8.4-10.2 [facility] Comment on above: Performed By: #### 1 000, 4500, 4510, 4520, 48212, 5000, 66755, 38926 #### [facility] Unless Otherwise Noted [address] [address] / COLA #4724/CLIA # [id number] Chloride [Moles/Vol] 102.0 mmol/L Normal 98.0-107.0 [facility] Comment on above: Performed By: #### 1 000, 4500, 4510, 4520, 56256, 5000, 01287, 54236 #### [facility] Unless Otherwise Noted [address] [address] / COLA #4724/CLIA # [id number] CO2 [Moles/Vol] 31.0 mmol/L High 22.0-30.0 [facility] Comment on above: Performed By: #### 1 000, 4500, 4510, 4520, 64890, 5000, 52270, 03838 #### [facility] Unless Otherwise Noted [address] [address] / COLA #4724/CLIA # [id number] Creatinine [Mass/Vol] 0.7 mg/dL Normal 0.5-1.0 [facility] Comment on above: Performed By: #### 1 000, 4500, 4510, 4520, 29893, 5000, 53433, 48619 #### [facility] Unless Otherwise Noted [address] [address] / COLA #4724/CLIA # [id number] GFR/1.73 sq M predicted among blacks MDRD (S/P/Bld) [Vol rate/Area] 110.1 ml/m1.73 Normal [facility] [place] [facility] Comment on above: Performed By: #### 1 000, 4500, 4510, 4520, 31295, 5000, 61366, 23798 #### [facility] Unless Otherwise Noted 2099 [place] [address] / COLA #4724/CLIA # [id number] GFR/1.73 sq M predicted among non-blacks MDRD (S/P/Bld) [Vol rate/Area] 91.0 ml/m1.73 Normal [facility] Comment on above: Performed By: #### 1 000, 4500, 4510, 4520, 17171, 5000, 45117, 78170 #### [facility] Unless Otherwise Noted [address] [address] / COLA #4724/CLIA # [id number] GFR/1.73 sq M predicted among non-blacks MDRD (S/P/Bld) [Vol rate/Area] 96.2 ml/m1.73 Normal [facility] Diabetes [facility] Comment on above: Performed By: #### 1 000, 4500, 4510, 4520, 44922, 5000, 82263, 51616 #### [facility] Unless Otherwise Noted [address] [place] [address] / COLA #4724/CLIA # [id number] Glucose [Mass/Vol] 109.0 mg/dL High 74.0-106.0 [facility] Comment on above: Performed By: #### 1 000, 4500, 4510, 4520, 07127, 5000, 34634, 28988 #### [facility] [place] Unless Otherwise Noted [address] [address] / COLA #4724/CLIA # [id number] Potassium [Moles/Vol] 4.3 mmol/L Normal 3.5-5.1 [facility] Comment on above: Performed By: #### 1 000, 4500, 4510, 4520, 47072, 5000, 66013, 82361 #### [facility]ocrine [facility] [place] Unless Otherwise Noted [address] [address] / COLA #4724/CLIA # [id number] Protein [Mass/Vol] 6.8 g/dL Normal 6.3-8.2 [facility] Comment on above: Performed By: #### 1 000, 4500, 4510, 4520, 68426, 5000, 32936, 59923 #### [facility] [place] Unless Otherwise Noted [address] [address] / COLA #4724/CLIA # [id number] Sodium [Moles/Vol] 137.0 mmol/L Normal 137.0-145.0 [facility] Comment on above: Performed By: #### 1 000, 4500, 4510, 4520, 58825, 5000, 88708, 12549 #### Endocrine [facility] [place] Unless Otherwise Noted [address] [address] / COLA #4724/CLIA # [id number] Urea nitrogen [Mass/Vol] 23.0 mg/dL High 7.0-17.0 [facility] Comment on above: Performed By: #### 1 000, 4500, 4510, 4520, 60299, 5000, 92849, 93467 #### [facility] Unless Otherwise Noted [address] [place] [address] / COLA #4724/CLIA # [id number] FT3on 11-25-2019 FT3 4.39 pg/mL Normal 2.71-6.16 [facility] Comment on above: Performed By: #### 1 000, 4500, 4510, 4520, 37348, 5000, 00479, 73518 #### [facility] Unless Otherwise Noted [address] [place] [address] / COLA #4724/CLIA # [id number] FT4on 11-25-2019 Free T4 [Mass/Vol] 0.95 ng/dL Normal 0.64-1.79 Endocr [facility] Comment on above: Performed By: #### 1 000, 4500, 4510, 4520, 99060, 5000, 48457, 00202 #### [facility] Unless Otherwise Noted [address] [place] [address] / COLA #4724/CLIA # [id number] TSHon 11-25-2019 TSH Qn 0.35 uIU/ml Low 0.47-4.68 [facility] Comment on above: Performed By: #### 1 000, 4500, 4510, 4520, 43724, 5000, 07902, 55885 #### [facility] Unless Otherwise Noted [address] [place] [address] / COLA #4724/CLIA # [id number] Vital Signs Date Time Vital Sign Value Performing Clinician Facility 09-29-2023 10:33-0500 Body height 167.6 cm South Saba DO Work Phone: [facility] 09-29-2023 10:33-0500 Body weight 62.14 kg South Saba DO Work Phone: [facility] 09-12-2023 10:00-0400 Body height 167.64 cm Roland Ball Other [facility] Other 09-12-2023 10:00-0400 Body mass index (BMI) [Ratio] 23.05 kg/m2 Roland Ball Other [facility] Other 09-12-2023 10:00-0400 Body weight 64.77 kg Roland Ball Other [facility] Other 09-12-2023 10:00-0400 Diastolic blood pressure 75 mm[Hg] Roland Ball Other [facility] Other 09-12-2023 10:00-0400 Respiratory rate 12 /min Roland Ball Other [facility] Other 09-12-2023 10:00-0400 Systolic blood pressure 131 mm[Hg] Roland Ball Other [facility] Other 08-29-2023 10:55-0400 Body height 167.6 cm Elder Angelia [employer]MENT[employer] S[employer]OL REGISTRAR.DATABASE ADMINISTRATOR Work Phone: [facility] 08-29-2023 10:55-0400 Body temperature 98.01 [degF] Elder Angelia [employer]LEMENTARY SCHOOL REGISTRAR.DATABASE ADMINISTRATOR Work Phone: [facility] 08-29-2023 10:55-0400 Body weight 66.68 kg Elder Angelia [employer]CHOOL REGISTRAR.DATABASE ADMINISTRATOR Work Phone: [facility] 08-29-2023 10:55-0400 Diastolic blood pressure 78 mm[Hg] Elder Angelia [employer]LEMENT[employer] SCHOOL REGISTRAR.DATABASE ADMINISTRATOR Work Phone: [facility] 08-29-2023 10:55-0400 Heart rate 82 /min Elder Angelia [employer]CHO[employer] REGISTRAR.DATABASE ADMINISTRATOR Work Phone: [facility] 08-29-2023 10:55-0400 SaO2% (BldA) [Mass fraction] 99 % Elder Angelia [employer]LE[employer] SCHOOL REGISTRAR.DATABASE ADMINISTRATOR Work Phone: [facility] 08-29-2023 10:55-0400 Systolic blood pressure 163 mm[Hg] Elder Angelia [employer] SCHOOL REGISTRAR.DATABASE ADMINISTRATOR Work Phone: [facility] 08-29-2023 10:03-0400 Body temperature 98.01 [degF] Heidi Macdonald MD Work Phone: [facility] 08-29-2023 10:03-0400 Body weight 66.68 kg Heidi Macdonald MD Work Phone: [facility] 08-29-2023 10:03-0400 Diastolic blood pressure 77 mm[Hg] Heidi Macdonald MD Work Phone: [facility] 08-29-2023 10:03-0400 Heart rate 82 /min Heidi Macdonald MD Work Phone: [facility] 08-29-2023 10:03-0400 Respiratory rate 16 /min Heidi Macdonald MD Work Phone: [facility] 08-29-2023 10:03-0400 SaO2% (BldA) [Mass fraction] 99 % Heidi Macdonald MD Work Phone: [facility] 08-29-2023 10:03-0400 Systolic blood pressure 157 mm[Hg] Heidi Macdonald MD Work Phone: [facility] 07-04-2023 09:18-0400 Body height 167.6 cm South Saba DO Work Phone: [facility] 07-04-2023 09:18-0400 Body temperature 97.59 [degF] South Saba DO Work Phone: [facility] 07-04-2023 09:18-0400 Body weight 66.5 kg South Saba DO Work Phone: [facility] 07-04-2023 09:18-0400 Diastolic blood pressure 68 mm[Hg] South Saba DO Work Phone: [facility] 07-04-2023 09:18-0400 Heart rate 73 /min South Saba DO Work Phone: [facility] 07-04-2023 09:18-0400 SaO2% (BldA) [Mass fraction] 100 % South Saba DO Work Phone: [facility] 07-04-2023 09:18-0400 Systolic blood pressure 139 mm[Hg] South Saba DO Work Phone: [facility] 06-27-2023 10:30-0400 Body temperature 97.39 [degF] Heidi Macdonald MD Work Phone: [facility] 06-27-2023 10:30-0400 Body weight 69.4 kg Heidi Macdonald MD Work Phone: [facility] 06-27-2023 10:30-0400 Diastolic blood pressure 76 mm[Hg] Heidi Macdonald MD Work Phone: [facility] 06-27-2023 10:30-0400 Heart rate 70 /min Heidi Macdonald MD Work Phone: [facility] 06-27-2023 10:30-0400 Respiratory rate 16 /min Heidi Macdonald MD Work Phone: [facility] 06-27-2023 10:30-0400 SaO2% (BldA) [Mass fraction] 97 % Heidi Macdonald MD Work Phone: [facility] 06-27-2023 10:30-0400 Systolic blood pressure 141 mm[Hg] Heidi Macdonald MD Work Phone: [facility] 05-23-2023 09:45-0400 Body height 167.64 cm Roland Ball Other [facility] Other 05-23-2023 09:45-0400 Body mass index (BMI) [Ratio] 24.79 kg/m2 Roland Ball Other [facility] Other 05-23-2023 09:45-0400 Body weight 69.67 kg Roland Ball Other [facility] Other 05-23-2023 09:45-0400 Diastolic blood pressure 78 mm[Hg] Roland Ball Other [facility] Other 05-23-2023 09:45-0400 Respiratory rate 12 /min Roland Ball Other [facility] Other 05-23-2023 09:45-0400 Systolic blood pressure 158 mm[Hg] Roland Ball Other [facility] Other 04-23-2023 13:30-0400 Body height 167.64 cm Roland Ball Other [facility] Other 04-23-2023 13:30-0400 Body mass index (BMI) [Ratio] 24.34 kg/m2 Roland Ball Other [facility] Other 04-23-2023 13:30-0400 Body weight 68.4 kg Roland Ball Other [facility] Other 04-23-2023 13:30-0400 Diastolic blood pressure 74 mm[Hg] Roland Ball Other [facility] Other 04-23-2023 13:30-0400 Respiratory rate 12 /min Roland Ball Other [facility] Other 04-23-2023 13:30-0400 Systolic blood pressure 131 mm[Hg] Roland Ball Other [facility] Other 03-05-2023 09:30-0400 Body height 167.6 cm Juan Manuel Pack ELEMENTARY SCHOOL REGISTRAR.DATABASE ADMINISTRATOR Work Phone: [facility] 03-05-2023 09:30-0400 Body weight 70.22 kg Juan Manuel Pack ELEMENTARY SCHOOL REGISTRAR.DATABASE ADMINISTRATOR Work Phone: [facility] 03-05-2023 09:30-0400 Diastolic blood pressure 90 mm[Hg] Juan Manuel Pack ELEMENTARY SCHOOL REGISTRAR.DATABASE ADMINISTRATOR Work Phone: [facility] 03-05-2023 09:30-0400 Heart rate 85 /min Juan Manuel Pack ELEMENTARY SCHOOL REGISTRAR.DATABASE ADMINISTRATOR Work Phone: [facility] 03-05-2023 09:30-0400 Systolic blood pressure 152 mm[Hg] Juan Manuel Pack [employer]LEMENTARY SCHOOL REGISTRAR.DATABASE ADMINISTRATOR Work Phone: [facility] 01-24-2023 08:45-0500 Body height 167.64 cm Roland Ball Other [facility] Other 01-24-2023 08:45-0500 Body mass index (BMI) [Ratio] 24.05 kg/m2 Roland Ball Other [facility] Other 01-24-2023 08:45-0500 Body temperature 96.7 [degF] Roland Ball Other [facility] Other 01-24-2023 08:45-0500 Body weight 67.59 kg Roland Ball Other [facility] Other 01-24-2023 08:45-0500 Diastolic blood pressure 93 mm[Hg] Roland Serrano Other [facility] Other 01-24-2023 08:45-0500 Systolic blood pressure 165 mm[Hg] Roland Serrano Other [facility] Other 01-20-2023 13:35-0500 Body height 167.64 cm Olya Gann Other [facility] Other 01-20-2023 13:35-0500 Body mass index (BMI) [Ratio] 24.53 kg/m2 Olya Alonzoault Other [facility] Other 01-20-2023 13:35-0500 Body temperature 97.3 [degF] Olya Sanjuanita Other [facility] Other 01-20-2023 13:35-0500 Body weight 68.95 kg Olya Gann Other [facility] Other 01-20-2023 13:35-0500 Respiratory rate 18 /min Olya Gann Other [facility] Other 01-20-2023 13:35-0500 SaO2% (BldA) [Mass fraction] 95 % Olyacameron Gann Other [facility] Other 01-03-2023 15:27-0500 Body height 167.6 cm Henry Ramos MD Work Phone: [facility] 01-03-2023 15:27-0500 Body temperature 97.81 [degF] Henry Ramos MD Work Phone: [facility] 01-03-2023 15:27-0500 Body weight 71.17 kg Henry Ramos MD Work Phone: [facility] 01-03-2023 15:27-0500 Diastolic blood pressure 87 mm[Hg] Henry Ramos MD Work Phone: [facility] 01-03-2023 15:27-0500 Heart rate 95 /min Henry Ramos MD Work Phone: [facility] 01-03-2023 15:27-0500 SaO2% (BldA) [Mass fraction] 99 % Henry Ramos MD Work Phone: [facility] 01-03-2023 15:27-0500 Systolic blood pressure 141 mm[Hg] Henry Ramos MD Work Phone: [facility] 09-26-2022 12:30-0500 Diastolic blood pressure 89 mm[Hg] Leila Alamo MD Work Phone: [facility] 09-26-2022 12:30-0500 Heart rate 79 /min Leila Alamo MD Work Phone: [facility] 09-26-2022 12:30-0500 Respiratory rate 18 /min Leila Alamo MD Work Phone: [facility] 09-26-2022 12:30-0500 SaO2% (BldA) [Mass fraction] 98 % Leila Alamo MD Work Phone: [facility] 09-26-2022 12:30-0500 Systolic blood pressure 140 mm[Hg] Leila Alamo MD Work Phone: [facility] 09-26-2022 11:25-0500 Body height 167.6 cm Leila Alamo MD Work Phone: [facility] 09-26-2022 11:25-0500 Body temperature 98.2 [degF] Leila Alamo MD Work Phone: [facility] 09-26-2022 11:25-0500 Body weight 68.04 kg Leila Alamo MD Work Phone: [facility] 08-07-2022 15:28-0400 Body weight 68.95 kg Henry Ramos MD Work Phone: [facility] 08-07-2022 15:28-0400 Diastolic blood pressure 91 mm[Hg] Henry Ramos MD Work Phone: [facility] 08-07-2022 15:28-0400 SaO2% (BldA) [Mass fraction] 98 % Henry Ramos MD Work Phone: [facility] 08-07-2022 15:28-0400 Systolic blood pressure 132 mm[Hg] Henry Ramos MD Work Phone: [facility] 03-13-2022 14:38-0400 Body height 169.5 cm Henry Ramos MD Work Phone: [facility] 03-13-2022 14:38-0400 Body temperature 96.8 [degF] Henry Ramos MD Work Phone: [facility] 03-13-2022 14:38-0400 Body weight 66.32 kg Henry Ramos MD Work Phone: [facility] 03-13-2022 14:38-0400 Diastolic blood pressure 96 mm[Hg] Henry Ramos MD Work Phone: [facility] 03-13-2022 14:38-0400 Heart rate 85 /min Henry Ramos MD Work Phone: [facility] 03-13-2022 14:38-0400 Respiratory rate 16 /min Henry Ramos MD Work Phone: [facility] 03-13-2022 14:38-0400 SaO2% (BldA) [Mass fraction] 98 % Henry Ramos MD Work Phone: [facility] 03-13-2022 14:38-0400 Systolic blood pressure 151 mm[Hg] Henry Ramos MD Work Phone: [facility] 07-07-2021 14:50-0400 Diastolic blood pressure 101 mm[Hg] Mayra Michel MD Work Phone: [facility] Work Phone: 07-07-2021 14:50-0400 Heart rate 70 /min Mayra Michel MD Work Phone: [facility] Work Phone: 07-07-2021 14:50-0400 Respiratory rate 13 /min Mayra Michel MD Work Phone: [facility] Work Phone: 07-07-2021 14:50-0400 SaO2% (BldA) [Mass fraction] 99 % Mayra Michel MD Work Phone: [facility] Work Phone: 07-07-2021 14:50-0400 Systolic blood pressure 133 mm[Hg] Mayra Michel MD Work Phone: [facility] Work Phone: 07-07-2021 13:25-0400 Body height 167.6 cm Mayra Michel MD Work Phone: [facility] Work Phone: 07-07-2021 13:25-0400 Body mass index (BMI) [Ratio] 24.19 kg/m2 Mayra Michel MD Work Phone: [facility] Work Phone: 07-07-2021 13:25-0400 Body temperature 98.6 [degF] Mayra Michel MD Work Phone: [facility] Work Phone: 07-07-2021 13:25-0400 Body weight 67.99 kg Mayra Michel MD Work Phone: [facility] Work Phone: 11-25-2019 16:19-0500 Body weight 70.4 Kg [facility] Comment on above: Performed By: #### 1000, 4500, 4510, 452 0, 37131, 5000, 45655, 50536 #### [facility] Unless Otherwise Noted [address] [place] [address] / COLA #4724/LAKIA # [id number] Encounters Encounter Date Encounter Type Care Provider Facility Start: 10-23-2023 End: 10-23-2023 ambulatory Roland Serrano Other [facility] Other Start: 10-23-2023 Telephone encounter Roland Serrano [facility] Start: 10-02-2023 End: 10-02-2023 ambulatory LEIGH MORENO Not Available Start: 09-29-2023 End: 09-30-2023 ambulatory ROLAND Bernie MAGGIE Facility:[place] Start: 09-29-2023 End: 09-29-2023 Patient encounter procedure Jackson Valente DO Work Phone: Colorectal Surgery Comment on above: Radiation proctitis (Primary Dx); Endometrial cancer (HCC) Start: 09-21-2023 End: 09-21-2023 ambulatory Roland eSrrano Other [facility] Other Start: 09-21-2023 Telephone encounter [facility] Start: 09-18-2023 End: 09-18-2023 ambulatory Roland Serrano Other [facility] Other Start: 09-18-2023 Telephone encounter [facility] Start: 09-17-2023 End: 09-17-2023 ambulatory Roland Serrano Other [facility] Other Start: 09-17-2023 Telephone encounter [facility] Start: 09-15-2023 End: 09-15-2023 ambulatory Roland Serrano Other [facility] Other Start: 09-15-2023 Telephone encounter Roland Serrano [facility] Start: 09-14-2023 End: 09-14-2023 ambulatory Roland Serrano Other [facility] Other Start: 09-14-2023 Telephone encounter Roland Serrano [facility] Start: 09-12-2023 End: 09-12-2023 ambulatory Roland Serrano Other [facility] Other Start: 09-12-2023 Encounter for genera l adult medical examination without abnormal findings Roland Serrano [facility] Start: 09-12-2023 Periodic preventive med est patient 40-64yrs Roland Serrano [facility] Start: 09-10-2023 End: 09-10-2023 ambulatory Roland Serrano Other [facility] Other Start: 09-10-2023 Telephone encounter Roland Serrano [facility] Start: 09-03-2023 End: 09-03-2023 ambulatory Roland Serrano Other [facility] Other Start: 09-03-2023 Telephone encounter Roland Serrano [facility] Start: 09-02-2023 Telephone encounter Roland Serrano [facility] Start: 09-02-2023 End: 09-02-2023 ambulatory ROLAND E BALL [facility] [employer] Other Start: 09-01-2023 End: 09-01-2023 ambulatory Roland Maggie Other [facility] Other Start: 09-01-2023 Telephone encounter Roland Ball [facility] Start: 08-29-2023 End: 08-29-2023 ambulatory ROLAND E BALL Facility:[place] Start: 08-29-2023 End: 08-30-2023 ambulatory ROLAND E BALL Facility:[place] Start: 08-29-2023 Encounter for other preprocedural examination ELDER GALAN [facility] Start: 08-29-2023 End: 08-29-2023 ambulatory ROLAND SERRANO Facility:[place] Start: 08-29-2023 End: 08-29-2023 Preprocedural examination done Elder Galan APRN.CNP Work Phone: [facility] Work Phone: Start: 08-29-2023 End: 08-29-2023 ambulatory Pulm [facility]ct [facility] 8 Pulmonary Medicine Comment on above: Spirometry Start: 08-29-2023 End: 08-29-2023 Patient encounter procedure Pulm [facility]ct [facility] Main 8 [facility] Comment on above: Dyspnea and respirat ory abnormalities (Primary Dx); Calcified nodule; Iron deficiency anemia due to chronic blood loss Pre-op evaluation (P rimary Dx) Start: 08-29-2023 End: 08-29-2023 Subsequent hospital visit by physician Xr Chest Main A21 Radiology Comment on above: Dyspnea, unspecified type [R06.00] Start: 08-26-2023 Orders Only Heidi Macdonald MD Work Phone: Respiratory [place] Comment on above: ILD (interstitial lamont ng disease) (HCC) (Primary Dx) Start: 08-22-2023 ambulatory South rincon DO Work Phone: [facility] Start: 08-22-2023 Patient encounter procedure South Saba DO Work Phone: Colorectal Surgery Comment on above: Pre op appointment Start: 08-22-2023 End: 08-22-2023 Subsequent hospital visit by physician [facility] ([facility]) Work Phone: [facility] Radiology CT Scan Comment on above: Interstitial pulmona ry disease (HCC) [J84.9] Start: 08-14-2023 ambulatory ROLAND SERRANO Facilit y:[facility] Start: 08-04-2023 End: 08-04-2023 ambulatory Roland Serrano [facility] Other Start: 08-04-2023 Office outpatient vi sit 15 minutes Roland Serrano [facility] Start: 07-22-2023 ambulatory South Rendon estuardobernie DO Work Phone: Colorectal Surgery Start: 07-22-2023 Telephone encounter South Saba DO Work Phone: Colorectal Surgery Comment on above: Patient Update Start: 07-08-2023 End: 07-08-2023 ambulatory Roland Serrano Other [facility] Other Start: 07-08-2023 Telephone encounter Roland VOGT [facility] Start: 07-04-2023 End: 07-05-2023 ambulatory South Saba DO Work Phone: Colorectal Surgery Start: 07-04-2023 End: 07-04-2023 Patient encounter procedure South Saba DO Work Phone: Colorectal Surgery Comment on above: Endometrial cancer ( HCC) (Primary Dx); Radiation proctitis Start: 06-27-2023 End: 06-27-2023 ambulatory Pulm [facility]ct Lab Main 9 Pulmonary Medicine Comment on above: Spirometry Start: 06-27-2023 End: 06-27-2023 Patient encounter procedure Pulm [facility]ct Lab Main 9 [facility] Comment on above: Interstitial pulmona ry disease (HCC) (Primary Dx); Other secondary pulmonary hypertension (HCC) Start: 05-26-2023 ambulatory Henry perales MD Work Phone: Gynecology Oncology Comment on above: Procitis Start: 05-23-2023 End: 05-23-2023 ambulatory Roland Serrano Other [facility] Other Start: 05-23-2023 Office outpatient vi sit 15 minutes Roland Maggie [facility] Start: 05-13-2023 End: 05-13-2023 ambulatory Roland Serrano Other [facility] Other Start: 05-13-2023 Telephone encounter Roland VOGT [facility] Start: 04-23-2023 End: 04-23-2023 ambulatory Roland Serrano Other [facility] Other Start: 04-23-2023 Patient encounter procedure Roland Serrano [facility] Start: 03-25-2023 End: 03-25-2023 ambulatory Roland Serrano Other [facility] Other Start: 03-25-2023 Telephone encounter Roland Serrano [facility] Start: 03-21-2023 Telephone encounter Roland VOGT [facility] Start: 03-21-2023 End: 03-22-[address] ROLAND SERRANO [facility] [employer] Other Start: 03-11-2023 End: 03-11-2023 ambulatory Roland Serrano Other [facility] Other Start: 03-11-2023 Telephone encounter Roland Serrano [facility] Start: 03-10-2023 End: 03-11-[address] ROLAND SERRANO [facility] [employer] Other Start: 03-10-2023 Telephone encounter Roland Serrano [facility] Start: 03-05-2023 End: 03-05-2023 ambulatory ROLAND Bernie MAGGIE Facility:[place] Start: 03-05-2023 End: 03-05-2023 Patient encounter procedure Juan Manuel Medina APRN.DATABASE ADMINISTRATOR Work Phone: Gastroenterology Comment on above: Rectal bleeding (Vivi nicho Dx) Start: 01-24-2023 End: 01-24-2023 ambulatory Roland Serrano Other [facility] Other Start: 01-24-2023 Office outpatient vi sit 15 minutes Roland Serrano [facility] Start: 01-23-2023 End: 01-23-2023 ambulatory Roland Serrano Other [facility] Other Start: 01-23-2023 Telephone encounter Roland Serrano TORIE [facility] Start: 01-20-2023 Office outpatient vi sit 15 minutes Olya Gann [facility] Start: 01-20-2023 End: 01-20-[address] ROLAND SERRANO [facility] [employer] Other Start: 01-07-2023 End: 01-07-2023 ambulatory Roland Serrano Other [facility] Other Start: 01-07-2023 Telephone encounter Roland Serrano [facility] Start: 01-03-2023 End: 01-04-2023 ambulatory ROLAND SERRANO Facility:[place] Start: 01-03-2023 End: 01-04-2023 ambulatory ROLAND SERRANO Facility:[place] Start: 01-03-2023 End: 01-04-2023 ambulatory Henry Ramos MD Work Phone: Gynecology Oncology Comment on above: Recurrent carcinoma of endometrium (HCC) (Primary Dx); Radiation proctitis; Blood per rectum Start: 01-03-2023 End: 01-04-2023 Patient encounter procedure Henry Ramos MD Work Phone: [facility] Start: 12-25-2022 Telephone encounter Aretha Pena RN Gynecology Oncology Comment on above: Returning Patient's Call Start: 11-19-2022 End: 11-19-2022 ambulatory SALOMON JACOME Facility:[facility] Start: 10-04-2022 End: 10-05-[address] ROLAND SERRANO Facility:[facility] Start: 09-26-2022 End: 09-26-2022 Subsequent hospital visit by physician Leila Alamo MD Work Phone: Gastroenterology Comment on above: Rectal bleeding [K62 .5] Start: 09-19-2022 Telephone encounter Kelly Philippe Gastroenterology Comment on above: Education Of Patient /family (LM for 09/26 appt ) Start: 09-08-2022 Encounter for genera l adult medical examination without abnormal findings DR ROLAND SERRANO [facility] Start: 09-04-2022 End: 09-05-[address] ROLAND SERRANO Facility:[facility]1 Start: 09-04-2022 End: 09-05-2022 Encounter for general adult medical examination without abnormal findings DR ROLAND SERRANO Facility:[facility]1 Start: 08-29-2022 Adult health examination Roland Serrano Other [facility] [employer] Other Start: 08-29-2022 Encounter for genera l adult medical examination without abnormal findings Roland Serrano Other [facility] [employer] Other Start: 08-29-2022 Pre-procedure evaluation check Roland Serrano Other [facility] [employer] Other Start: 08-07-2022 End: 08-07-2022 ambulatory Henry Ramos MD Work Phone: Gynecology Oncology Comment on above: Recurrent carcinoma of endometrium (HCC) (Primary Dx); Radiation proctitis; Foreshortening of vagina; Endometrial cancer (HCC); Vaginal atrophy; Rectal bleeding Start: 08-07-2022 End: 08-07-2022 Patient encounter procedure Henry Ramos MD Work Phone: [facility] Start: 06-12-2022 End: 06-12-2022 ambulatory SALOMON AYAZ Facility: Start: 03-13-2022 End: 03-13-2022 ambulatory Henry Ramos MD Work Phone: Gynecology Oncology Comment on above: Recurrent carcinoma of endometrium (HCC) (Primary Dx); Vaginal atrophy; Foreshortening of vagina Start: 03-13-2022 End: 03-13-2022 Patient encounter procedure Henry Ramos MD Work Phone: [facility] Start: 11-21-2021 End: 11-22-2021 Emergency department patient visit [place] [facility] Start: 07-07-2021 End: 07-07-2021 Emergency department patient visit [facility] Start: 07-07-2021 End: 07-07-2021 Emergency department patient visit Mayra Michel MD Work Phone: [facility] ED Comment on above: Dizziness (Primary D x); Dehydration Procedures Date Procedure Procedure Detail Performing Clinician Start: 09-29-2023 Follow-up visit Follow Up SOUTH SABA Start: 09-02-2023 Antibody screen BENJAMI N BALL Comment on above: Order Comment: Speci men Type: BLOOD SPECIMEN Ordering Facility: [facility] Address: [address] [address] Performed By: #### 5 [id number], [id number] #### [facility] CLIA [id number] [address] [place] [address] Start: 08-29-2023 Antibody screen JUAN SERRANO Comment on above: Order Comment: Speci men Type: BLOOD SPECIMEN Ordering Facility: [facility] Address: [address] [address] Performed By: #### 5 [id number], [id number] #### [facility] CLIA [id number] [address] [place] [address] Start: 08-29-2023 Spmtry w/vc expirato ry bernie w/wo mxml vol vntj Heidi Macdonald MD Work Phone: Start: 08-29-2023 Radiologic exam ches t 2 views Heidi Macdonald MD Work Phone: Start: 08-22-2023 Ct thorax w/o contra st material Heidi Macdonald MD Work Phone: Start: 06-27-2023 Brncdilat rspse spmt ry pre&post-brncdilat admn Heidi Macdonald MD Work Phone: Start: 09-26-2022 Colonoscopy flx dx w /collj spec when pfrmd Ernesto Chacko [employer] REGISTRAR.DATABASE ADMINISTRATOR Work Phone: Start: 09-26-2022 Colonoscopy Leila Alamo MD Work Phone: Start: 11-02-2021 Antibody screen Comment on above: Order Comment: Trans fuse now? N Result Comment: PERF ORMED BY: [facility] [address] [place] [address] PATHOLOGIST MANAGING BROKER CLAIRE ANTHONY M.D. Start: 10-15-2021 Antibody screen Comment on above: Order Comment: Date of Surgery: [id number] # of PRBC units on hold?: 2 Result Comment: PERF ORMED BY: [facility] [place] [place] [address] PATHOLOGIST MANAGING BROKER CLAIRE ANTHONY M.D. Start: 09-20-2021 Adult depression scr eening assessment Henry Ramos MD Work Phone: Start: 08-20-2021 Antibody screen Comment on above: Order Comment: Date of Surgery: [id number] # of PRBC units on hold?: 2 Result Comment: PERF ORMED BY: [facility] [address] [place] [address] PATHOLOGIST MANAGING BROKER CLAIRE ANTHONY M.D. Start: 07-07-2021 Urinalysis microscopic only Mayra Michel MD Work Phone: Start: 07-07-2021 Urnls dip stick/tabl et rgnt auto w/o microscopy Mayra Michel MD Work Phone: Start: 07-07-2021 Comprehensive metabo lic panel Mayra Michel MD Work Phone: Start: 06-11-2019 General examination of patient Roland Serrano Other Start: 06-11-2019 Screening for malign ant neoplasm of colon Roland Serrano Other Screening for malign ant neoplasm of breast Roland Serrano Other Plan of Treatment Date Care Activity Detail Author Start: 08-29-2026 Diabetes Screening Diabetes Screenin [facility] Start: 07-04-2026 DIABETES SCREEN DIABETES SCREEN [facility] Start: 07-04-2026 Diabetes Screening Diabetes Screenin [facility] Start: 09-26-2023 Colonoscopy COLONOSCOPY [facility] Start: 09-26-2023 COLORECTAL CANCER SCREENING COLORECTAL CANCER SCREENING [facility] Start: 08-26-2023 End: 09-24-2024 SPIROMETRY BASELINE ONLY SPIROMETRY BASELINE ONLY PFT Routine ILD (interstitial lung disease) (HCC) Expected: 08/26/2023, Expires: 09/24/2024 [facility] Work Phone: Comment on above: Expected: 08/26/2023 , Expires: 09/24/2024 Start: 07-22-2023 End: 09-21-2023 CBC W Auto Differential panel - Blood CBC + DIFF Lab Routine Radiation proctitis Expected: 07/22/2023, Expires: 09/21/2023 [facility] Work Phone: Comment on above: Expected: 07/22/2023 , Expires: 09/21/2023 Start: 07-22-2023 End: 09-21-2023 Comprehensive metabolic 2000 panel - Serum or Plasma COMP METABOLIC PANEL Lab Routine Radiation proctitis Expected: 07/22/2023 (Approximate), Expires: 09/21/2023 [facility] Work Phone: Comment on above: Expected: 07/22/2023 (Approximate), Expires: 09/21/2023 Start: 07-18-2023 Covid-19 Vaccine ( season) Covid-19 Vaccine () [facility] Start: 07-18-2023 Influenza vaccination [facility] Start: 11-17-2022 [facility]PRESSION [facility]MENT [facility] Start: 09-20-2022 Adult depression scr eening assessment DEPRESSION SCREENING [facility] Start: 08-12-2022 DIABETES SCREEN DIABETES SCREEN [facility] Start: 08-07-2022 End: 10-07-2022 CBC W Auto Differential panel - Blood CBC + DIFF Lab Routine Rectal bleeding Expected: 08/07/2022, Expires: 10/07/2022 [facility] Work Phone: Comment on above: Expected: 08/07/2022 , Expires: 10/07/2022 Start: 07-18-2022 Influenza vaccination [facility] Start: 11-27-2021 COVID-19 VACCINE (3 - Booster for Moderna series) COVID-19 VACCINE (3 - Booster for Moderna series) [facility] Start: 11-17-2021 DEPRESSION ASSESSMENT DEPRESSION ASS ESSMENT [facility] Start: 08-22-2021 COVID-19 VACCINE (3 - Booster for Moderna series) COVID-19 VACCINE (3 - Booster for Moderna series) [facility] Start: 08-22-2021 COVID-19 VACCINE (3 - Moderna series) COVID-19 VACCINE (3 - Moderna series) [facility] Start: 07-18-2021 Influenza vaccination Flu vaccine (# 1) [facility] Work Phone: Start: 2020 RSV Vaccine (1 - 1-d ose 60+ series) RSV Vaccine (1 - 1-dose 60+ series) [facility] Start: 2010 SHINGRIX VACCINE (1 of 2) [place] GRIX VACCINE (1 of 2) [facility] Start: 2005 COLOGUARD (FIT-DNA) COLOGUARD (FIT-D NA) [facility] Start: 2005 Colonoscopy COLONOSCOPY [facility] Start: 2005 COLORECTAL CANCER SCREENING COLORECTAL CANCER SCREENING [facility] Start: [address] COLONOGRAPHY [facility] Start: 2005 FECAL OCCULT BLOOD FECAL OCCULT BLOO D [facility] Start: 2005 Lipid 1996 panel - S marcela or Plasma Lipid Screening [facility] Start: 2005 LIPID SCREEN LIPID SCREEN [facility] Start: 2005 SIGMOIDOSCOPY SIGMOIDOSCOPY [facility] Start: 2000 Mammography [facility] Start: 1990 HPV TESTING HPV TESTING [facility] Start: 1981 PAP TESTING PAP TESTING [facility] Start: 1979 Urine microalbumin profile [facility] Start: 1978 ANNUAL PCP TEAM [employer] DEVELOPER SHAILA DISEASE VISIT ANNUAL PCP TEAM CHRONIC DISEASE VISIT [facility] Start: 1978 BP CONTROLLED (<130/80) BP CONTROLLE D (<130/80) [facility] Start: 1978 HEPATITIS C SCREENING HEPATITIS C SC ADELAIDA [facility] Start: 1978 HIV SCREENING HIV SCREENING [facility] End: 03-05-2024 Colonoscopy COLONOSCOPY (THERAPEUTIC) Endoscopy Routine Rectal bleeding 1 Occurrences starting 03/05/2023 until 03/05/2024 [facility] Work Phone: Comment on above: 1 Occurrences starti ng 03/05/2023 until 03/05/2024 End: 07-26-2024 Ct thorax w/o contrast material CT CHEST WO IVCON Radiology Routine Interstitial pulmonary disease (HCC) 1 Occurrences starting 06/27/2023 until 07/26/2024 [facility] [employer] Work Phone: Comment on above: 1 Occurrences starti ng 06/27/2023 until 07/26/2024 End: 07-07-2021 Culture, Urine Culture, Urine Microbiology Routine Once for 1 Occurrences starting 07/07/2021 until 07/07/2021 [facility] Work Phone: Comment on above: Once for 1 Occurrenc es starting 07/07/2021 until 07/07/2021 Culture, Urine Culture, Urine Microbiology Routine 07/07/2021 2:00 PM EDT [facility] Work Phone: End: 06-27-2024 Echocardiography ECHO Cardiology Routine Other secondary pulmonary hypertension (HCC) 1 Occurrences starting 06/27/2023 until 06/27/2024 [facility] Work Phone: Comment on above: 1 Occurrences starti ng 06/27/2023 until 06/27/2024 H&P for surgery H&P FOR SURGERY Procedures Routine Radiation proctitis Ordered: 07/22/2023 [facility] Work Phone: Comment on above: Ordered: 07/22/2023 End: 07-26-2024 LUNG DIFFUSION CAPACITY (DLCO) LUNG DIFFUSION CAPACITY (DLCO) PFT Routine Interstitial pulmonary disease (HCC) 1 Occurrences starting 06/27/2023 until 07/26/2024 [facility] Work Phone: Comment on above: 1 Occurrences starti ng 06/27/2023 until 07/26/2024 LUNG DIFFUSION CAPAC ITY (DLCO) LUNG DIFFUSION CAPACITY (DLCO) PFT Routine Interstitial pulmonary disease (HCC) 08/29/2023 9:27 AM EDT [facility] Work Phone: End: 07-26-2024 LUNG VOLUMES LUNG VOLUMES PFT Routine Interstitial pulmonary disease (HCC) 1 Occurrences starting 06/27/2023 until 07/26/2024 [facility] Work Phone: Comment on above: 1 Occurrences starti ng 06/27/2023 until 07/26/2024 End: 07-26-2024 Pulmonary ventilation & perfusion imaging NM LUNG VENT / PERF VQ Radiology Routine Other secondary pulmonary hypertension (HCC) 1 Occurrences starting 06/27/2023 until 07/26/2024 [facility] Work Phone: Comment on above: 1 Occurrences starti ng 06/27/2023 until 07/26/2024 REFER FOR ADMIT INTERVIEW REFER FOR ADMIT INTERVIEW Procedures Routine Radiation proctitis Ordered: 07/22/2023 [facility] Work Phone: Comment on above: Ordered: 07/22/2023 End: 08-07-2023 Screening colonoscopy COLONOSCOPY SCREENING Endoscopy Routine Rectal bleeding 1 Occurrences starting 08/07/2022 until 08/07/2023 [facility] Work Phone: Comment on above: 1 Occurrences starti ng 08/07/2022 until 08/07/2023 End: 09-26-2022 Screening colonoscopy COLONOSCOPY SCREENING Endoscopy Routine Rectal bleeding 1 Occurrences starting 09/26/2022 until 09/26/2022 [facility] Work Phone: Comment on above: 1 Occurrences starti ng 09/26/2022 until 09/26/2022 SPIROMETRY BASELINE ONLY SPIROME TRY BASELINE ONLY PFT Routine ILD (interstitial lung disease) (HCC) 08/29/2023 9:27 AM EDT [facility] Work Phone: SPIROMETRY WITH DILA TOR IF OBSTRUCTED SPIROMETRY WITH DILATOR IF OBSTRUCTED PFT Routine Dyspnea, unspecified type 06/27/2023 10:15 AM EDT [facility] Work Phone: [facility] Immunizations Immunization Date Immunization Notes Care Provider Fa hector 06-27-2021 COVID-19 vaccine, fu ll dose (MODERNA) Henry Ramos MD Work Phone: [facility] 11-21-2020 COVID-19 vaccine, fu ll dose (MODERNA) Henry Ramos MD Work Phone: [facility] Payers Date Payer Category Payer Unknown MMO MMO [employer] [id number] 2020-Present [phone] [address] [place] [address] PPO [id number] 2020 Unknown [id number] 1960 Unknown [id number] 74 1960 Unknown [id number] 74 1960 Unknown [id number] 93 1960 Unknown [id number] 93 1960 Unknown [id number] 93 1960 Unknown [id number] 93 1960 Unknown [id number] 93 1960 Unknown [id number] 93 1960 Unknown [id number] 93 1960 Unknown [id number] 259 1959 [facility] [id number] 1959 Unknown [id number] Social History Date Type Detail Facility Start: 07-07-2021 End: 08-07-2022 Tobacco smoking status NHIS Never smoker [facility] Start: 07-07-2021 End: 08-07-2022 Tobacco use and exposure Never used [facility] Start: 1960 Sex Assigned At Not on file [facility] Work Phone: Start: 03-03-2022 End: 09-26-2022 Exposure to SARS-CoV-2 (event) Not sure [facility] Start: 03-13-2022 End: 09-29-2023 Alcohol intake Current drinker of alcohol (finding) [facility] Start: 07-28-2019 History SDOH Alcohol Comment 3 drinks per month [facility] Start: 03-05-2023 End: 06-27-2023 Sex Assigned At [facility] Start: 03-05-2023 End: 06-27-2023 History of Social function [facility] Adult Depression Screening Assessment 0 [facility] Clinical Notes 03-13-2022 to 10-23-2023 Note Date & Type Note Facility 10-23-2023 Evaluation note Encounter Date Diagnosis Assessment Notes Oct, Iron deficiency anemia due to chronic blood loss (ICD-10 - D50.0) Oct, Decreased thyroid stimulating hormone (TSH) level (ICD-10 - R79.89) Oct, Pulmonary hypertension (ICD-10 - I27.20) [facility] Other 11-13-2023 NoteHNO ID: [id number] Author: [place], DO Service: ? 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 She recently underwent and EUA with topical formalin in OR on 09/02/23. She is here post operatively. 09/02/23 OPERATION PERFORMED: Flexible sigmoidoscopy, exam under anesthesia, topical application of formalin to the rectum for treatment of radiation proctitis Physical Exam: Ht 167.6 cm (5' 6 ) Wt 62.1 kg (137 lb) BMI 22.11 kg/m? General - awake, alert, no acute distress Abdominal - soft, non tender, non distended Anorectal: deferred Assessment Medical Decision Making: Assessment AND Diagnosis: Isabel Waddell is a 63 year old female with history of endometrial cancer s/p radiation c/b radiation proctitis. Feeling much better after EUA with topical formalin in OR on 09/02/23. Data Reviewed: Tests AND Documents Reviewed/ordered: Review of Pathology I have independently interpreted: none I have discussed Isabel Waddell's treatment plan and/or results with patient. Treatment plan: - follow up PRN - encouraged to call with any questions/concerns Attending Note I evaluated the patient and personally participated in the marcum components. I agree with the resident's findings and plan as documented and have discussed the case and management of the patient's care with the resident. I have confirmed and edited as necessary, the PFSH and ROS obtained by others. 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 She recently underwent and EUA with topical formalin in OR on 09/02/23. She is here post operatively. 09/02/23 OPERATION PERFORMED: Flexible sigmoidoscopy, exam under anesthesia, topical application offormalin to the rectum for treatment of radiation proctitis Physical Exam: Ht 167.6 cm (5' 6 ) Wt 62.1 kg (137 lb) BMI 22.11 kg/m General - awake, alert, no acute distress Abdominal - soft, non tender, non distended Anorectal: deferred Assessment Medical Decision Making: Assessment & Diagnosis: Isabel Waddell is a 63 year old female with history of endometrial cancer s/p radiation c/b radiation proctitis. Feeling much better after EUA with topical formalin in OR on 09/02/23. Data Reviewed: Tests & Documents Reviewed/ordered: Review of Pathology I have independently interpreted: none I have discussed Isabel Waddell's treatment plan and/or results with patient. Treatment plan: - follow up PRN - encouraged to call with any questions/concerns Attending Note I evaluated the patient and personally participated in the marcum components. I agree with the resident's findings and plan as documented and have discussed the case and management of the patient's carewith the resident. I have confirmed and edited as necessary, the PFSH and ROS obtained by others. [place] DO, FACS, FASCRS Colorectal Surgery' Signature: [place] DO Date: 10/07/2023 Time: 2:03 PM Risk of morbidity, mortality and/or complications of treatment plan: low [facility]* Encounter Date Diagnosis Assessment Notes Treatment Notes Treatment Clinical Notes Sep, Iron deficiency anemia due to chronic blood loss (ICD-10 - D50.0) Sep, 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) [facility] Other 11-01-2023 Evaluation note* Encounter Date Diagnosis Assessment Notes Treatment Notes Treatment Clinical Notes Sep, Elevated liver enzymes (ICD-10 - R74.8) Sep, Cholestasis (ICD-10 - K83.1) Sep, 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 Reviewed age-appropriate preventive testing recommended. Aug, Radiation proctitis (ICD-10 - K62.7) s/p sigmoidoscopy w/ cauterization. No further rectal bleeding Aug, Pulmonary hypertension (ICD-10 - I27.20) Asymptomatic at this time. Dilated LV w/ normal LVEF RVSP 39 Monitor for now Aug, Primary hypertension (ICD-10 - I10) This patient is instructed to consume a healthy, low-fat, low-salt diet. They are also encouraged to continue exercise to achieve/maintain a normal BMI. Aug, SHERIF (generalized anxiety disorder) (ICD-10 - F41.1) Healthy diet and exercise. Continue medical therapy Aug, Chronic venous insufficiency (ICD-10 - I87.2) Avoid salt and elevate lower extremities, support stockings, inspect legs and feet daily for blisters and ulcerations. Aug, Dilated cardiomyopathy (ICD-10 - I42.0) Echo: LVEF normal, RVSP 31, LAE Unknown etiology, f/u [facility] Aug, Iron deficiency anemia due to chronic blood loss (ICD-10 - D50.0) Check Fe, TIBC, Ferritin May be candidate for Fe IV [facility] Other 10-18-2023 Evaluation note* Encounter Date Diagnosis Assessment Notes Treatment Notes Treatment Clinical Notes Aug, Radiation proctitis (ICD-10 - K62.7) Aug, Iron deficiency anemia due to chronic blood loss (ICD-10 - D50.0) [facility] Other 10-17-2023 NoteHNO ID: [id number] Author: Brannon Sung APRN.ALIN Service: ? Author Type: Nurse Hair Or Beauty Salon Manager Type: Anesthesia Procedure Notes Filed: 09/02/2023 8:05 AM Note Text: ANESTHESIOLOGY PROCEDURE NOTE Airway General Information Procedure Start Time/Medication Administration: 09/02/2023 7:58 AM Patient location during procedure: OR Timeout Performed Pre-procedure: timeout performed Consent Obtained: Yes Patient identity confirmed: arm band, care seafood team member and patient Staffing METEOROLOGY FACULTY MEMBER: Brannon Sung APRN.METEOROLOGY FACULTY MEMBER Performed by: ALIN Indications and Patient Condition Indications for airway management: anesthesia Preoxygenated: yes anesthesia circuit Patient position: sniffing Method: asleep Cricoid Pressure: No Manual In-Line Stabilization: No Difficult Mask: No Final Airway Details Final airway type: supraglottic airway Number of attempts at approach: 1 Final Supraglottic Airway: i-gel Size 4 Seal Adequate: yes Failed airway: no Unrecognized esophageal intubation: no Airway not difficult SIGNATURE: Brannon Sung APRN.METEOROLOGY FACULTY MEMBER PATIENT NAME: Isabel Waddell DATE: September 02, 2023 TIME: 8:05 AM CSN: [id number] * Encounter Date Diagnosis Assessment Notes Treatment Notes Treatment Clinical Notes Aug, Dilated cardiomyopathy (ICD-10 - I42.0) Echo: LVEF normal, RVSP 31, LAE [facility] Other 10-13-2023 NoteHNO ID: [id number] Author: Heidi Menard MD Service: ? Author Type: Fellow Type: Progress Notes Filed: 08/29/2023 4:02 PM Note Text: Ms. Waddell is a 63 year old female who presents to the [facility] [place]. 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 Prior SOB history: Reports being well from a breathing standpoint until January 2023 ?bronchitis: shortness of breath, cough (dry cough), fever (low grade) for 2 - 3 weeks, visited urgent care was given Abx, prednisone (10 days) and advair Shortness of breath - at baseline is able to walk (unlimited), exercises 2-3 times/week, could ride her bike. Since January, currently limited to within the house, SOB on flat ground, unable to climb stairs. Currently doesn't report cough. Was supposed to get PFTs - was unable to complete them due to shortness of breath, told she has asthma and was put on advair and albuterol. No h/o blood clots, no FH of clots. Never smoker. No h/o joint pains, raynauds, skin rashes, mouth ulcers, photophobia Work up done so far: CT chest with some dynamic collapse, not enough to explain symptoms. Spirometry normal. Pending: lung volumes, DLCO, VQ scan (given h/o cancer) and Echo Advair stopped at last visit. Interval history: reports similar to prior. No changes, minimal improvement in SOB. Review of Systems: GEN: No fevers/chills, night sweats, or weight changes HENT: No rhinorrhea, pharyngitis, sinus drainage, congestion, or oral ulcers EYES: No sudden vision changes CV: No chest pain, palpitations RESP: As above GI: No nausea/vomiting/constipation/diarrhea, no acid reflu : No dysuria, no hematuria MSK: No joint swelling NEURO: No sudden weakness or numbness SKIN: No rash PSYCH: No hallucinations Past Medical History: 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, diagnosed due to prolonged amenorrhea Thyroid disease Past Surgical History: PAST SURGICAL HISTORY Procedure Laterality Date ANESTH, SECTION x3 ARTHROSCOPY KNEE DIAGNOSTIC W/WO SYNOVIAL BX SPX Left 2017 Arthroscopy, knee BREAST SURGERY HX Right 1983 breast cysts COLONOSCOPY 2003 COLONOSCOPY SCREENING 09/2022 DILATION AND CURETTAGE DXAND/THER NONOBSTETRIC 06/29/2019 Dilation AND curettage HYSTERECTOMY HX 08/12/2019 Robotic TLH, BSO, cystotomy repair KNEE ARTHROSCOPY Right x3 LAPAROSCOPY SURG CHOLECYSTECTOMY ~age 40s Cholecystectomy, lap RECONSTRUCT FINGER Right 2020 R thumb socket REMOVAL GALLBLADDER REMOVE PITUITARY TUMOR W/ SCOPE 1982 SHOULDER SURGERY HX Bilateral ~2012, 2014 Work and Social Histories: Social History Tobacco Use Smoking status: Never Smokeless tobacco: Never Vaping Use Vaping Use: Never used Substance Use Topics Alcohol use: Yes Comment: 3 drinks per month Drug use: Never Occupation/Exposures: 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 No pets Family History: FAMILY HISTORY Problem Relation Age of Onset Thyroid Mother Thyroid Maternal Grandmother Allergies: Patient has no known allergies. Outpatient Medications: ADVAIR DISKUS 250-50 mcg/dose inhalerINHALE 1 PUFF TWICE A DAY FOR 30 DAYSDisp: Rfl: (Patient not taking: Reported on 07/04/2023) albuterol HFA (PROVENTIL HFA, VENTOLIN HFA) 90 mcg/actuation inhalerINHALE 2 PUFFS EVERY 4 HOURS NEEDED FOR COUGH OR SHORTNESS OF BREATH FOR 30 DAYSDisp: Rfl: (Patient not taking: Reported on 07/04/2023) ascorbic acid, vitamin C, (VITAMIN C) 500 mg tabletTake 500 mg by mouth once daily.Disp: Rfl: B COMPLEX VITAMINS CAPTake one(1) capsule daily.Disp: Rfl: 0 CALCIUM CARBONATE-VIT D3-MINERALS 600 MG-400 UNIT TABTake 1 tablet by mouth twice daily. Disp: Rfl: 0 (Patient not taking: Reported on 07/04/2023) carvedilol (COREG) 25 mg tabletTake 1 tablet by mouth twice daily.Disp: Rfl: dicyclomine (BENTYL) 10 mg capsuleTake 1 capsule by mouth before meals and at bedtime. As needed.Disp: Rfl: enteric contrast (will be provided with radiology test)For CT CHESTABD/PEL W IVCON Routine order Administer, As Directed One Time Only, via Oral, Rectal, both Oral and Rectal, Enteric Tube, Stoma or Indwelling Catheter, Enteric Contrast as designated per enteric contrast guidelinesDisp: 1 EachRfl: 0 (Patient not taking: Reported on (more content not included)...[facility]10-13-2023 NoteHNO ID: [id number] Author: Sveta Roman RRT Service: ? Author Type: Registered Resp Therapist Type: Progress Notes Filed: 08/29/2023 9:52 AM Note Text: PULM FUNCTION SMARTBLOCK: Provider: Mike Presley MD Spirometry: 1 DLCO: 1 LV - Box[facility] History and physical note* Elder Galan, ELEMENTARY SCHOOL REGISTRAR.DATABASE ADMINISTRATOR - 08/29/2023 11:00 AM EDT COLON AND RECTAL HISTORY AND PHYSICAL EXAMINATION SERVICE DATE: 08/29/2023 Primary Care Physician: Roland Serrano DO Chief complaint: pre operative examination Surgeon: Dr. Saba Procedure: Examination under anesthesia, Flexible sigmoidoscopy, injection of formalin, or any other indicated procedure HPI: Isabel Waddell is a 63 year old female who presents to the clinic for a pre operative exam for the above named procedure on 09/02/23. Today she reports: Changes to health in the last month: no significant changes but continues to have shortness of breath on exertion. Pt saw pulmonary medicine today who attributes this to anema and encouraged the pt to follow up with PCP for iron supplementation Rectal bleeding: yes occurs with most BMs; BRB with wiping Pain:denies bm frequency/consistency:3-4x/day soft and formed Bowel regimen:none N/V/F/C:denies Eating and drinking ok Review of Systems / PACC screen: Do you have difficulty climbing a full flight of stairs without feeling short of breath? yes Do you require oxygen for your breathing or have your gone to an emergency department because of breathing problems?yes Are you on dialysis or have you been told that your kidneys do not work well as they should? no Do have an implanted cardiac device (pacemaker, defibrillator etc.) that has not been checked in the last 6 months? no Have you had an organ transplant? no Have you been told that you had excessive bleeding during surgical procedures or do you take blood thinning medications other than aspirin? yes Have you ever had a heart attack, heart stents/surgery, valve problems, or other heart problems? no Have you had a stroke, seizures, or unexplained loss of consciousness? no Do you have a neurologic condition like Parkinson's disease or multiple sclerosis? no Have you or a blood relative had a life-threatening reaction to anesthesia? no Do you have cirrhosis of the liver or other liver disease? no Have you had a blood clot within the past year? no Do you take insulin or other injections for diabetes? no Do you have sleep apnea or have you been told you may have sleep apnea? no Do you have other implanted devices (deep brain stimulator, spinal cord stimulator, etc.)? no Physical Exam: BP 157/77 Pulse 82 Temp 36.7 C (98 F) Ht 167.6 cm (5' 6 ) Wt 66.7 kg (147 lb) SpO2 99% BMI 23.73 kg/m General: Alert and oriented Skin: Normal color, no rash, no lesions. HEENT: EOM, pupils equal, round and reactive. Cardiovascular: Normal S1 & S2, no rubs, murmurs or gallops. No JVD. Pulse regular. Lungs: Normal breath sounds, no wheezes or crackles. Abdomen: Soft, non-tender, no rigidity. Extremities: No deformity, no edema or tenderness, no joint swelling or clubbing. Neurological: Normal cognition and motor skills. Pulses: Carotid and radial pulses normal +2. Anorectal: deffered Assessment Medical Decision Making: Assessment & Diagnosis: Isabel Waddell is a 63 year old female here for a pre operative examination. Patient has the following medical conditions which may affect galina-operative course Anemia - MARIAMA. Last Hgb 7.1. pt to have CBC redrawn today Acute on chronic shortness of breath Data Reviewed: Tests & Documents Reviewed/ordered: Review of prior notes from [facility] and pulomonary medicine Review of Labs: CBC Treatment plan: I have reviewed with the patient their current symptoms, changes since our last visit, the above listed documents and physical exam. Based on this, the following surgery is planned: Examination underanesthesia, flexible sigmoidoscopy, injection of formalin, or any other indicated procedure. The risks, benefits and anticipated outcomes of the procedure, the risks and benefits of the alternatives to the procedure and the roles and tasks of the personnel to be involved were discussed with the patient and the patient consents to the procedure and agrees to proceed. Informed consent has been obtained. The following details surrounding surgery were discussed: Preoperative prep: none. Per Dr. Saba, patient is to do clear liquids on 09/01/23 and then to beNPO after midnight Informed Dr. Saba about patient's complaints of SOB and will update team about CBC once drawn. Elder Galan APRN.CNP Pelvic Floor Colorectal Surgery Risk of morbidity, mortality and/or complications of treatment plan: high documented in this encounterWay[facility]10-13-2023 NoteHNO ID: [id number] Author: Marshal Vasquez RT(R) Service: ? Author Type: Technologist Type: Progress Notes Filed: 08/29/2023 9:11 AM Note Text: Radiology Service Progress Note PATIENT NAME: Isabel Waddell DATE OF SERVICE: August 29, 2023 TIME: 9:10 AM PATIENT IDENTITY VERIFICATION COMPLETED USING TWO (2) IDENTIFIERS: Name and Date of confirmed by patient verbally. FALL SCREENING: Has the patient had 2 falls in the last year or 1 fall with injury or currently using an Ambulatory Assistive Device (Walker, Cane, Wheelchair, Crutches, etc.)? No PATIENT GENDER DATA: Female. status: : No status: NO. PATIENT RELEVANT IMPLANT DATA REVIEWED: Not Applicable RADIOLOGY DEPARTMENT: General X-ray: Exam(s) Completed: Chest X-Ray PERIPHERAL IV DATA: Not applicable SIGNED BY: RT Tammy(R) August 29, 2023 9:10 [facility]10-13-[facility]23 History of Present illness Narrative* Heidi Menard MD - 08/29/2023 10:00 AM EDT Images from the original note were not included. Ms. Waddell is a 63 year old female who [facility] [place]. 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 Prior SOB history: Reports being well from a breathing standpoint until January 2023 ?bronchitis: shortness of breath, cough (dry cough), fever (low grade) for 2 - 3 weeks, visited urgent care was given Abx, prednisone (10 days) and advair Shortness of breath - at baseline is able to walk (unlimited), exercises 2-3 times/week, could ride her bike. Since January, currently limited to within the house,SOB on flat ground, unable to climb stairs. Currently doesn't report cough. Was supposed to get PFTs - was unable to complete them due to shortness of breath, told she has asthma and was put on advair and albuterol. No h/o blood clots, no FH of clots. Never smoker. No h/o joint pains, raynauds, skin rashes, mouth ulcers, photophobia Work up done so far: CT chest with some dynamic collapse, not enough to explain symptoms. Spirometry normal. Pending: lung volumes, DLCO, VQ scan (given h/o cancer) and Echo Advair stopped at last visit. Interval history: reports similar to prior. No changes, minimal improvement in SOB. Review of Systems: GEN: No fevers/chills, night sweats, or weight changes HENT: No rhinorrhea, pharyngitis, sinus drainage, congestion, or oral ulcers EYES: No sudden vision changes CV: No chest pain, palpitations RESP: As above GI: No nausea/vomiting/constipation/diarrhea, no acid reflu : No dysuria, no hematuria MSK: No joint swelling NEURO: No sudden weakness or numbness SKIN: No rash PSYCH: No hallucinations Past Medical History: 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, diagnosed due to prolonged amenorrhea Thyroid disease Past Surgical History: PAST SURGICAL HISTORY Procedure Laterality Date ANESTH, SECTION x3 ARTHROSCOPY KNEE DIAGNOSTIC W/WO SYNOVIAL BX SPX Left 2017 Arthroscopy, knee BREAST SURGERY HX Right 1983 breast cysts COLONOSCOPY 2003 COLONOSCOPY SCREENING 09/2022 DILATION & CURETTAGE DX&/THER NONOBSTETRIC 06/29/2019 Dilation & curettage HYSTERECTOMY HX 08/12/2019 Robotic TLH, BSO, cystotomy repair KNEE ARTHROSCOPY Right x3 LAPAROSCOPY SURG CHOLECYSTECTOMY ~age 40s Cholecystectomy, lap RECONSTRUCT FINGER Right 2020 R thumb socket REMOVAL GALLBLADDER REMOVE PITUITARY TUMOR W/ SCOPE 1982 SHOULDER SURGERY HX Bilateral ~2012, 2014 Work and Social Histories: Social History Tobacco Use Smoking status: Never Smokeless tobacco: Never Vaping Use Vaping Use: Never used Substance Use Topics Alcohol use: Yes Comment: 3 drinks per month Drug use: Never Occupation/Exposures: 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 No pets Family History: FAMILY HISTORY Problem Relation Age of Onset Thyroid Mother Thyroid Maternal Grandmother Allergies: Patient has no known allergies. Outpatient Medications: ADVAIR DISKUS 250-50 mcg/dose inhaler^INHALE 1 PUFF TWICE A DAY FOR 30 DAYS^Disp: ^Rfl: (Patient not taking: Reported on 07/04/2023) albuterol HFA (PROVENTIL HFA, VENTOLIN HFA) 90 mcg/actuation inhaler^INHALE 2 PUFFS EVERY 4 HOURS NEEDED FOR COUGH OR SHORTNESS OF BREATH FOR 30 DAYS^Disp: ^Rfl: (Patient not taking: Reported on 07/04/2023) ascorbic acid, vitamin C, (VITAMIN C) 500 mg tablet^Take 500 mg by mouth once daily.^Disp: ^Rfl: B COMPLEX VITAMINS CAP^Take one(1) capsule daily.^Disp: ^Rfl: 0 CALCIUM CARBONATE-VIT D3-MINERALS 600 MG-400 UNIT TAB^Take 1 tablet by mouth twice daily. ^Disp: ^Rfl: 0 (Patient not taking: Reported on 07/04/2023) carvedilol (COREG) 25 mg tablet^Take 1 tablet by mouth twice daily.^Disp: ^Rfl: dicyclomine (BENTYL) 10 mg capsule^Take 1 capsule by mouth before meals and at bedtime. As needed.^Disp: ^Rfl: enteric contrast (will be provided with radiology test)^For CT CHESTABD/PEL W IVCON Routine order Administer, As Directed One Time Only, via Oral, Rectal, both Oral and Rectal, Enteric Tube, Stoma orIndwelling Catheter, Enteric Contrast as designated per enteric contrast guidelines^Disp: 1 Each^Rfl: 0 (Patient not taking: Reported on 06/27/2023) iv contrast (will be provided with radiology test)^CT Chest ABD/PEL-Inject, intravenously, once for1 dose.No IV access, insert saline lock prior to the beginning of sedation, infusion, injection of imaging exam. Discontinue saline lock post exam. If Pt. has a central line or IVAD, may access for administration according to line specific nursing protocol. Once exam is complete flush line and de-access according to line specific nursing protocol in the CT contrast administration guidelines link.^Disp: 1 Each^Rfl: 0 (Patient not taking: Reported on 06/27/2023) Lactobac no.41/Bifidobact no.7 (PROBIOTIC-10 ORAL)^Take by mouth once daily.^Disp: ^Rfl: MULTIVITAMIN TAB^Take one(1) tablet daily.^Disp: ^Rfl: 0 GCIU8-KBT-NQS-FISH OIL-L.CASEI ORAL^Take by mouth once daily.^Disp: ^Rfl: TURMERIC ORAL^Take 1,000 mg by mouth once daily.^Disp: ^Rfl: (Patient not taking: Reported on 07/04/2023) venlafaxine ER (EFFEXOR XR) 150 mg 24 hr capsule^Take 150 mg by mouth daily at bedtime. ^Disp: ^Rfl: Pain today: Ms. Waddell is not having pain related to the reason for this visit. PHYSICAL EXAM: General appearance: NAD Mental status: alert, oriented x 3 Constitutional: well dressed, well groomed Skin: No bruising on exposed skin Eyes: PERRL ENT : Nasal congestion absent, no pharyngeal erythema, edema or exudate Chest: Regular S1 and S2, Lungs clear to auscultation Abdomen: nontender to palpation Extremities: no lower extremity edema bilaterally Neuro: PERRL, facial symmetry intact, gait stable Labs / Imaging / Diagnostic Studies: All radiography listed below personally reviewed by me Data Reviewed from [facility] (in addition to that noted in HPI, and Past histories above): CMP, CBC Hemoglobin 7.1 07/04/2023 PFT: spirometry 06/27: no obstruction Echo: pending Assessment: 63 year old female with endometrial cancer (2019 Robotic total hysterectomy, bilateral salpingo-oophorectomy, cystotomy/cystotomy repair and cystoscopy , with recurrence s/p radiation currently reports remission), rectal bleeding concerning for radiation proctitis being followed in pulmonary clinicfor shortness of breath (subacute, with limitations in ET). CT chest with some dynamic collapse of airways (not enough to explain symptoms), spirometry, lung volumes normal and DLCO low (likely in the setting of anemia). Hgb drop from baseline 11-13 to 7.1 inthe setting of multiple episodes of LGIB thought to be from radiation proctitis, planned for sigmoidoscopy and intervention next week. Symptoms correlate with bleeding and are likely in the setting of anemia. Will follow with PCP for iron supplementation and transfusion support as needed until source can be intervened on. Will still obtain echo and VQ scan (previously ordered) and reassess in a few months after hgb recovers. Discussed with Dr. Adame who agrees with above. Heidi Macdonald MD Pulmonary and Critical Care Fellow [facility] [place] Staff note: I have personally interviewed and examined the patient. I have personally verified elements of the exam listed above. Interval changes or irregularities are as noted. I have personally and independently reviewed images and PFT tracings and results (see data section). I have personally reviewed the assessment above and concur. Changes, if any, are noted. I have personally reviewed the plan list above and concur. Changes, if any, are noted. Hilton Adame MD 08/29/2023 documented in this encounterWay[facility]10-13-2023 History of Present illness Narrative* Sveta Roman RRT - 08/29/2023 9:52 AM EDT PULM FUNCTION SMARTBLOCK: Provider: Mike Presley MD Spirometry: 1 DLCO: 1 LV - Box: 1 documented in this encounterWayne [facility] Campus10-13-2023 History of Present illness Narrative* Marshal Vasquez RT(R) - 08/29/2023 9:00 AM EDT Radiology Service Progress Note PATIENT NAME: Isabel Waddell DATE OF SERVICE: August 29, 2023 TIME: 9:10 AM PATIENT IDENTITY VERIFICATION COMPLETED USING TWO (2) IDENTIFIERS: Name and Date of confirmedby patient verbally. FALL SCREENING: Has the patient had 2 falls in the last year or 1 fall with injury or currently using an Ambulatory Assistive Device (Walker, Cane, Wheelchair, Crutches, etc.)? No PATIENT GENDER DATA: Female. status: : No status: NO. PATIENT RELEVANT IMPLANT DATA REVIEWED: Not Applicable RADIOLOGY DEPARTMENT: General X-ray: Exam(s) Completed: Chest X-Ray PERIPHERAL IV DATA: Not applicable SIGNED BY: RT Tammy(R) August 29, 2023 9:10 AM documented in this encounterWayne [facility]10-10-2023 NoteHNO ID: [id number] Author: Gilberto Beth Service: ? Author Type: ? Type: Progress Notes Filed: 08/26/2023 4:28 PM Note Text: [place] [facility] History of Present illness Narrative* Gilberto Beth - 08/26/2023 4:16 PM EDT [place] to pair w dlco/lv on upcoming f/u visit documented in this encounterWayne [facility] Campus10-06-2023 NoteHNO ID: [id number] Author: Nuvia Grewal RT(R) Service: Radiology Author Type: Director Of Diagnostic Imaging Type: Progress Notes Filed: 08/22/2023 8:34 AM Note Text: Radiology Service Progress Note PATIENT NAME: Isabel Waddell DATE OF SERVICE: August 22, 2023 TIME: 8:33 AM PATIENT IDENTITY VERIFICATION COMPLETED USING TWO (2) IDENTIFIERS: Name and Date of confirmed by patient verbally and Name and Date of confirmed by identification band. FALL SCREENING: Has the patient had 2 falls in the last year or 1 fall with injury or currently using an Ambulatory Assistive Device (Walker, Cane, Wheelchair, Crutches, etc.)? No PATIENT GENDER DATA: Female. status: : No status: NO. PATIENT RELEVANT IMPLANT DATA REVIEWED: Not Applicable RADIOLOGY DEPARTMENT: CT; Exam(s) Completed: Chest PERIPHERAL IV DATA: Not applicable SIGNED BY: DAVID Ann) August 22, 2023 8:33 AMLayton [id number] History of Present illness Narrative* Nuvia Grewal RT(R) - 08/22/2023 8:30 AM EDT Radiology Service Progress Note PATIENT NAME: Isabel Waddell DATE OF SERVICE: August 22, 2023 TIME: 8:33 AM PATIENT IDENTITY VERIFICATION COMPLETED USING TWO (2) IDENTIFIERS: Name and Date of confirmedby patient verbally and Name and Date of confirmed by identification band. FALL SCREENING: Has the patient had 2 falls in the last year or 1 fall with injury or currently using an Ambulatory Assistive Device (Walker, Cane, Wheelchair, Crutches, etc.)? No PATIENT GENDER DATA: Female. status: : No status: NO. PATIENT RELEVANT IMPLANT DATA REVIEWED: Not Applicable RADIOLOGY DEPARTMENT: CT; Exam(s) Completed: Chest PERIPHERAL IV DATA: Not applicable SIGNED BY: RT Seth(R) August 22, 2023 8:33 AM documented in this encounterWayne Healthcare [facility] Campus09-18-2023 Evaluation note* Encounter Date Diagnosis Assessment Notes Treatment Notes Treatment Clinical Notes Jul, COVID-19 (ICD-10 - U07.1) Self isolate at home. - Cannot work - avoid contact with others - avoid pets - wipe counters, door knobs if touched - if can't avoid leaving home, must wear mask to protect others - need to stay isolated for 10 days from onset of symptoms - to discontinue isolation must be 5 days AND must be without fever for 24 hours AND symptoms must be improving. Always wear a mask in public places for complete 10 days She is 10 days out w/ recurrent symptoms May be secondary infection vs recurrent COVID symptoms. Will initiate antibiotics and have called [facility]. Since her symptoms developed > 5 days ago, no Paxlovid has been prescribed Jul, Bronchitis, not specified as acute or chronic (ICD-10 - J40) Instructed to use Robitussin or Mucinex for cough, saline or Flonase NS for congestion, Tylenol for pain and fever. [facility] [employer] Other 09-05-2023 Miscellaneous Notes* Telephone Encounter - Divya Karimi - 07/22/2023 3:17 PM EDT Isabel Waddell accepts 09/01 and 09/02 dates for preop and surgery documented in this encounterWayne [facility] Campus09-05-2023 Miscellaneous Notes* Telephone Encounter - Enid Baker - 07/22/2023 2:48 PM EDT [phone] Patient calling to reschedule her EUA. documented in this encounterWayne Healthcare [facility] Campus08-22-2023 Evaluation note* Encounter Date Diagnosis Assessment Notes Treatment Notes Treatment Clinical Notes Jun, SHERIF (generalized anxiety disorder) (ICD-10 - F41.1) [facility] [employer] Other 08-18-2023 History and physical note* [place] Saba DO - 07/04/2023 9:00 AM EDT COLORECTAL SURGERY New Patient Visit July 01, 2023 Chief Complaint: Radiation proctitis History of Present Illness: Isabel Waddell is a 63 year old year old female with history of recurrent endometrial adenocarcinoma s/p robotic hysterectomy, Bilateral salpingo- oophorectomy, cystostomy repair 07/2019 c/b recurrence in05/2021. Patient underwent radiation. She has developed rectal bleeding and underwent colonoscopy in09/2022 which showed evidence of colonic angiectasia which was treated with argon plasma. Patient continues to have rectal bleeding. Patient is being evaluated for radiation proctitis. Patient deniesany nausea, vomiting, abdominal pain. Patient reports regular bowel movements. 03/05/23 Juan Manuel Medina, DATABASE ADMINISTRATOR: Isabel Waddell is a 62 year old female who presents for Rectal Bleeding. She admits to having consistent rectal bleeding for over the past year. She does have a history of endometrial cancer with radiation. She had a colonoscopy in 10/08 for evaluation of her bleeding that revealed multiple bleeding colonic angiectasia's which was treated with argon plasma. Patient states that her bleeding did not improve after this. She also had stool in the entire colon. She states that she did not complete her prep. She denies constipation. Colonoscopy - 09/26/22 - Preparation of the colon was fair. - Multiple bleeding colonic angioectasias. Treated with argon plasma coagulation (APC). - Stool in the entire examined colon. - No specimens collected. CT ABD/PEL - 12/13/21 1. 5 mm hepatic hypodensity, stable from the prior examination of 06/04/2021, likely related to a small cyst. 2. 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 3. No CT evidence for metastatic disease to the abdomen or pelvis. 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, diagnosed due to prolonged amenorrhea Thyroid disease PAST SURGICAL HISTORY Procedure Laterality Date ANESTH, SECTION x3 ARTHROSCOPY KNEE DIAGNOSTIC W/WO SYNOVIAL BX SPX Left 2016 Arthroscopy, knee BREAST SURGERY HX Right 1983 breast cysts COLONOSCOPY 2002 COLONOSCOPY SCREENING 09/2022 DILATION & CURETTAGE DX&/THER NONOBSTETRIC 06/29/2019 Dilation & curettage HYSTERECTOMY HX 08/12/2019 Robotic TLH, BSO, cystotomy repair KNEE ARTHROSCOPY Right x3 LAPAROSCOPY SURG CHOLECYSTECTOMY ~age 40s Cholecystectomy, lap RECONSTRUCT FINGER Right 2019 R thumb socket REMOVAL GALLBLADDER REMOVE PITUITARY TUMOR W/ SCOPE 1982 SHOULDER SURGERY HX Bilateral ~2012, 2014 Current Outpatient Medications Medication Sig Dispense Refill albuterol HFA (PROVENTIL HFA, VENTOLIN HFA) 90 mcg/actuation inhaler INHALE 2 PUFFS EVERY 4 HOURS NEEDED FOR COUGH OR SHORTNESS OF BREATH FOR 30 DAYS ADVAIR DISKUS 250-50 mcg/dose inhaler INHALE 1 PUFF TWICE A DAY FOR 30 DAYS dicyclomine (BENTYL) 10 mg capsule Take 1 capsule by mouth before meals and at bedtime. As needed. carvedilol (COREG) 25 mg tablet Take 1 tablet by mouth twice daily. ascorbic acid, vitamin C, (VITAMIN C) 500 mg tablet Take 500 mg by mouth once daily. iv contrast (will be provided with radiology test) CT Chest ABD/PEL-Inject, intravenously, once for1 dose.No IV access, insert saline lock prior to the beginning of sedation, infusion, injection of imaging exam. Discontinue saline lock post exam. If Pt. has a central line or IVAD, may access for administration according to line specific nursing protocol. Once exam is complete flush line and de-access according to line specific nursing protocol in the CT contrast administration guidelines link.(Patient not taking: Reported on 06/27/2023) 1 Each 0 enteric contrast (will be provided with radiology test) For CT CHESTABD/PEL W IVCON Routine order Administer, As Directed One Time Only, via Oral, Rectal, both Oral and Rectal, Enteric Tube, Stoma orIndwelling Catheter, Enteric Contrast as designated per enteric contrast guidelines (Patient not taking: Reported on 06/27/2023) 1 Each 0 TURMERIC ORAL Take 1,000 mg by mouth once daily. venlafaxine ER (EFFEXOR XR) 150 mg 24 hr capsule Take 150 mg by mouth daily at bedtime. [id number]-FISH OIL-L.CASEI ORAL Take by mouth once daily. Lactobac no.41/Bifidobact no.7 (PROBIOTIC-10 ORAL) Take by mouth once daily. MULTIVITAMIN TAB Take one(1) tablet daily. 0 B COMPLEX VITAMINS CAP Take one(1) capsule daily. 0 CALCIUM CARBONATE-VIT D3-MINERALS 600 MG-400 UNIT TAB Take 1 tablet by mouth twice daily. 0 Current Facility-Administered Medications Medication Dose Route Frequency Provider Last Rate Last Admin perflutren lipid microspheres 1.3 mL in NaCl (PF) 0.9% 10 mL injection (DEFINITY) INTRAVENOUS DIRECTED PRN Heidi Menard MD sodium chloride 0.9 % (flush) 10 mL (BD POSIFLUSH) 10 mL INTRAVENOUS DIRECTED PRN Heidi Menard MD ALLERGIES No Known Allergies Review of Systems / PACC screen: Do you have difficulty climbing a full flight of stairs without feeling short of breath? yes Do you require oxygen for your breathing or have your gone to an emergency department because of breathing problems? no Are you on dialysis or have you been told that your kidneys do not work well as they should? no Do have an implanted cardiac device (pacemaker, defibrillator etc.) that has not been checked in the last 6 months? no Have you had an organ transplant? no Have you been told that you had excessive bleeding during surgical procedures or do you take blood thinning medications other than aspirin? no Have you ever had a heart attack, heart stents/surgery, valve problems, or other heart problems? no Have you had a stroke, seizures, or unexplained loss of consciousness? no Do you have a neurologic condition like Parkinson's disease or multiple sclerosis? no Have you or a blood relative had a life-threatening reaction to anesthesia? no Do you have cirrhosis of the liver or other liver disease? no Have you had a blood clot within the past year? no Do you take insulin or other injections for diabetes? no Do you have sleep apnea or have you been told you may have sleep apnea? yes doing testing for it Do you have other implanted devices (deep brain stimulator, spinal cord stimulator, etc.)? no Physical Exam: BP 139/68 Pulse 73 Temp 36.4 C (97.6 F) Ht 167.6 cm (5' 6 ) Wt 66.5 kg (146 lb 9.6 oz) SpO2 100% BMI 23.66 kg/m General Appearance: Well appearing, alert, in no acute distress, well-hydrated, well nourished. Lungs: Lungs clear to auscultation. No wheezing, rhonchi, rales. Heart: RRR without murmur, gallop, or rubs. No ectopy Edema: no Abdomen: soft, non-tender, non-distended Assessment Medical Decision Making: Assessment & Diagnosis: Isabel Waddell is a 63 year old female with history of recurrent endometrial adenocarcinoma s/p robotic hysterectomy, Bilateral salpingo-oophorectomy, cystostomy repair 07/2019 c/b recurrence in 05/2021. Patient underwent radiation. She has developed rectal bleeding and underwent colonoscopy in 09/2022 which showed evidence of colonic angiectasia which was treated with argon plasma. Patient is presenting for evaluation of radiation proctitis. Data Reviewed: Tests & Documents Reviewed/ordered: Review of prior notes from [facility], pulmonary medicine Review of prior operative reports Review of Pathology Review of Imaging: CT Abdomen, CT Pelvis, CT Chest Review of Labs: CBC Review of Procedures / Tests: Colonoscopy I have independently interpreted: CT Abdomen, CT Pelvis I have discussed Isabel Waddell's treatment plan and/or results with patient. Treatment plan: - Carafate enemas BID - Plan for EUA, Flexible sigmoidoscopy Attending Note I evaluated the patient and personally participated in the marcum components. I agree with the resident's findings and plan as documented and have discussed the case and management of the patient's carewith the resident. I have confirmed and edited as necessary, the PFSH and ROS obtained by others. [place] DO, FACS, FASCRS Colorectal Surgery Signature: [place] DO Date: 07/14/2023 Time: 11:36 AM Colorectal Surgery Risk of morbidity, mortality and/or complications of treatment plan: high [facility] NoteHNO ID: [id number] Author: Heidi Menard MD Service: ? Author Type: Fellow Type: Progress Notes Filed: 06/29/2023 8:14 AM Note Text: Ms. Waddell is a 63 year old female who [facility] to [facility] [place]. Consultation requested by Self. HPI: 63 year old female with endometrial cancer (2019 Robotic total hysterectomy, bilateral salpingo-oophorectomy, cystotomy/cystotomy repair and cystoscopy , with recurrence s/p radiation currently reports remission), rectal bleeding concerning for radiation proctitis Reports being well from a breathing standpoint until January 2023 ?bronchitis: shortness of breath, cough (dry cough), fever (low grade) for 2 - 3 weeks, visited urgent care was given Abx, prednisone (10 days) and advair Shortness of breath - at baseline is able to walk (unlimited), exercises 2-3 times/week, could ride her bike. Since January, currently limited to within the house, SOB on flat ground, unable to climb stairs. Currently doesn't report cough. Was supposed to get PFTs - was unable to complete them due to shortness of breath, told she has asthma and was put on advair and albuterol. No h/o blood clots, no FH of clots Never smoker No h/o joint pains, raynauds, skin rashes, mouth ulcers, photophobia Respiratory ROS: GARSIA: as above Orthopnea: none PND: none Pedal Edema: none Weight: at baseline Cough: present in January, currently intermittent dry cough occasionally Nocturnal awakenings: none Sputum: none GERD: none ANDREZ: none Home O2: no Review of Systems: GEN: No fevers/chills, night sweats, or weight changes HENT: No rhinorrhea, pharyngitis, sinus drainage, congestion, or oral ulcers EYES: No sudden vision changes CV: No chest pain, palpitations RESP: As above GI: No nausea/vomiting/constipation/diarrhea, no acid reflux : No dysuria, no hematuria MSK: No joint swelling NEURO: No sudden weakness or numbness SKIN: No rash PSYCH: No hallucinations Past Medical History: 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, diagnosed due to prolonged amenorrhea Thyroid disease Past Surgical History: PAST SURGICAL HISTORY Procedure Laterality Date ANESTH, SECTION x3 ARTHROSCOPY KNEE DIAGNOSTIC W/WO SYNOVIAL BX SPX Left 2017 Arthroscopy, knee BREAST SURGERY HX Right 1983 breast cysts COLONOSCOPY 2002 DILATION AND CURETTAGE DXAND/THER NONOBSTETRIC 06/29/2019 Dilation AND curettage HYSTERECTOMY HX 08/12/2019 Robotic TLH, BSO, cystotomy repair KNEE ARTHROSCOPY Right x3 LAPAROSCOPY SURG CHOLECYSTECTOMY ~age 40s Cholecystectomy, lap RECONSTRUCT FINGER Right 2019 R thumb socket REMOVE PITUITARY TUMOR W/ SCOPE 1982 SHOULDER SURGERY HX Bilateral ~2012, 2014 Work and Social Histories: Social History Tobacco Use Smoking status: Never Smokeless tobacco: Never Vaping Use Vaping Use: Never used Substance Use Topics Alcohol use: Yes Comment: 3 drinks per month Drug use: Never Occupation/Exposures: 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 Silica: No significant exposure. Whatcom: No significant exposure. Organic HP antigen: No significant exposure. Inorganic HP antigen: No significant exposure. Mold: Maybe in the basement Tree pollen: No significant exposure. Radiation: Radiation for endometrial cancer - local Fumes: No significant exposure. Metal dust: No significant exposure. Beryllium: No significant exposure. Dust: No significant exposure. Pets: No pets Family History: FAMILY HISTORY Problem Relation Age of Onset Thyroid Mother Thyroid Maternal Grandmother Allergies: Patient has no known allergies. Outpatient Medications: dicyclomine (BENTYL) 10 mg capsule Take 1 capsule by mouth before meals and at bedtime. As needed. carvedilol (COREG) 25 mg tablet Take 1 tablet by mouth twice daily. ascorbic acid, vitamin C, (VITAMIN C) 500 mg tablet Take 500 mg by mouth once daily. iv contrast (will be provided with radiology test) CT Chest ABD/PEL-Inject, intravenously, once for 1 dose.No IV access, insert saline lock prior to the beginning of sedation, infusion, injection of imaging exam. Discontinue saline lock post exam. If Pt. has a central line or IVAD, may access for administration according to line specific nursing protocol. Once exam is complete flush line and de-access according to line specific nursing protocol in the CT contrast administration guidelines link. enteric contrast (will be provided with radiology test) For CT CHESTABD/PEL W IVCON Routine order Administer, As Directed One Time Only, via Oral, Rectal, both Oral and Rectal, Enteric Tube, Stom (more content not included)...[facility]08-11-2023 NoteHNO ID: [id number] Author: Dayan Marley, FAMILIA Service: ? Author Type: Registered Resp Therapist Type: Progress Notes Filed: 06/27/2023 10:27 AM Note Text: PULM FUNCTION SMARTBLOCK: Provider: Pedro Rodarte MD Spirometry: 1 System: 3 - [id number] [facility]08-11-2023 History of Present illness Narrative* Heidi Menard MD - 06/27/2023 10:29 AM EDT Images from the original note were not included. Ms. Waddell is a 63 year old female who presents to the [facility] [place]. Consultation requested by Self. 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 Since January, currently limited to within the house, SOB on flat ground, unable to climb stairs. Currently doesn't report cough. Was supposed to get PFTs - was unable to complete them due to shortness of breath, told she has asthma and was put on advair and albuterol. No h/o blood clots, no FH of clots Never smoker No h/o joint pains, raynauds, skin rashes, mouth ulcers, photophobia Respiratory ROS: GARSIA: as above Orthopnea: none PND: none Pedal Edema: none Weight: at baseline Cough: present in January, currently intermittent dry cough occasionally Nocturnal awakenings: none Sputum: none GERD: none ANDREZ: none Home O2: no Review of Systems: GEN: No fevers/chills, night sweats, or weight changes HENT: No rhinorrhea, pharyngitis, sinus drainage, congestion, or oral ulcers EYES: No sudden vision changes CV: No chest pain, palpitations RESP: As above GI: No nausea/vomiting/constipation/diarrhea, no acid reflux : No dysuria, no hematuria MSK: No joint swelling NEURO: No sudden weakness or numbness SKIN: No rash PSYCH: No hallucinations Past Medical History: 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, diagnosed due to prolonged amenorrhea Thyroid disease Past Surgical History: PAST SURGICAL HISTORY Procedure Laterality Date ANESTH, SECTION x3 ARTHROSCOPY KNEE DIAGNOSTIC W/WO SYNOVIAL BX SPX Left 2017 Arthroscopy, knee BREAST SURGERY HX Right 1984 breast cysts COLONOSCOPY 2003 DILATION & CURETTAGE DX&/THER NONOBSTETRIC 06/29/2019 Dilation & curettage HYSTERECTOMY HX 08/12/2019 Robotic TLH, BSO, cystotomy repair KNEE ARTHROSCOPY Right x3 LAPAROSCOPY SURG CHOLECYSTECTOMY ~age 40s Cholecystectomy, lap RECONSTRUCT FINGER Right 2020 R thumb socket REMOVE PITUITARY TUMOR W/ SCOPE 1982 SHOULDER SURGERY HX Bilateral ~2012, 2015 Work and Social Histories: Social History Tobacco Use Smoking status: Never Smokeless tobacco: Never Vaping Use Vaping Use: Never used Substance Use Topics Alcohol use: Yes Comment: 3 drinks per month Drug use: Never Occupation/Exposures: 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 Silica: No significant exposure. Whatcom: No significant exposure. Organic HP antigen: No significant exposure. Inorganic HP antigen: No significant exposure. Mold: Maybe in the basement Tree pollen: No significant exposure. Radiation: Radiation for endometrial cancer - local Fumes: No significant exposure. Metal dust: No significant exposure. Beryllium: No significant exposure. Dust: No significant exposure. Pets: No pets Family History: FAMILY HISTORY Problem Relation Age of Onset Thyroid Mother Thyroid Maternal Grandmother Allergies: Patient has no known allergies. Outpatient Medications: dicyclomine (BENTYL) 10 mg capsule Take 1 capsule by mouth before meals and at bedtime. As needed. carvedilol (COREG) 25 mg tablet Take 1 tablet by mouth twice daily. ascorbic acid, vitamin C, (VITAMIN C) 500 mg tablet Take 500 mg by mouth once daily. iv contrast (will be provided with radiology test) CT Chest ABD/PEL-Inject, intravenously, once for1 dose.No IV access, insert saline lock prior to the beginning of sedation, infusion, injection of imaging exam. Discontinue saline lock post exam. If Pt. has a central line or IVAD, may access for administration according to line specific nursing protocol. Once exam is complete flush line and de-access according to line specific nursing protocol in the CT contrast administration guidelines link. enteric contrast (will be provided with radiology test) For CT CHESTABD/PEL W IVCON Routine order Administer, As Directed One Time Only, via Oral, Rectal, both Oral and Rectal, Enteric Tube, Stoma orIndwelling Catheter, Enteric Contrast as designated per enteric contrast guidelines (Patient taking differently: For CT CHESTABD/PEL W IVCON Routine order Administer, As Directed One Time Only, via Oral, Rectal, both Oral and Rectal, Enteric Tube, Stoma or Indwelling Catheter, Enteric Contrast as designated per enteric contrast guidelines) TURMERIC ORAL Take 1,000 mg by mouth once daily. venlafaxine ER (EFFEXOR XR) 150 mg 24 hr capsule Take 150 mg by mouth daily at bedtime. [id number]-PSS-XVE-FISH OIL-L.CASEI ORAL Take by mouth once daily. Lactobac no.41/Bifidobact no.7 (PROBIOTIC-10 ORAL) Take by mouth once daily. MULTIVITAMIN TAB Take one(1) tablet daily. B COMPLEX VITAMINS CAP Take one(1) capsule daily. CALCIUM CARBONATE-VIT D3-MINERALS 600 MG-400 UNIT TAB Take 1 tablet by mouth twice daily. Pain today: Ms. Waddell is not having pain related to the reason for this visit. PHYSICAL EXAM: General appearance: NAD Mental status: alert, oriented x 3 Constitutional: well dressed, well groomed Skin: No bruising on exposed skin Eyes: PERRL ENT : Nasal congestion absent, no pharyngeal erythema, edema or exudate Chest: Regular S1 and S2, Lungs clear to auscultation Abdomen: nontender to palpation Extremities: no lower extremity edema bilaterally Neuro: PERRL, facial symmetry intact, gait stable Labs / Imaging / Diagnostic Studies: All radiography listed below personally reviewed by me Data Reviewed from [facility] (in addition to that noted in HPI, and Past histories above): CMP, CBC Hemoglobin 11.5 01/03/2023 PFT: spirometry 06/27: no obstruction CT Chest: Nov 2020: Calcified nodule in RLL, no ILD or evidence of mets Echo: none Assessment: 63 year old female with endometrial cancer (2019 Robotic total hysterectomy, bilateral salpingo-oophorectomy, cystotomy/cystotomy repair and cystoscopy , with recurrence s/p radiation currently reports remission), rectal bleeding 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 Being seen for subacute shortnessof breath and limitations in ET (at baseline used to be unlimited, able to ride a bike; since Januarylimited to within the house). Spirometry normal. Will obtain lung volumes, DLCO, CT chest, VQ scan (given h/o cancer) and Echo. Unlikely to be asthma, can stop advair and albuterol Follow up in 6 weeks pending the above testing Discussed with Dr. Cisneros who agrees with above. Heidi Macdonald MD Pulmonary and Critical Care Fellow [facility] [place] STAFF ATTENDING NOTE I have personally interviewed and examined the patient. I have personally verified elements of the exam listed above. Interval changes or irregualrities are as noted. I have personally and independently reviewed data (see data section). I have personally reviewed the problem list above and concur. Changes, if any, are noted. I have personally reviewed the plan list above and concur. Changes, if any, are noted. Mike Thompson MD 06/29/2023 documented in [facility] History of Present illness Narrative* Dayan Marley RRT - 06/27/2023 10:26 AM EDT PULM FUNCTION SMARTBLOCK: Provider: Pedro Rodarte MD Spirometry: 1 System: 3 - [id number] documented in this encounterWay[facility]23 Evaluation note* Encounter Date Diagnosis Assessment Notes Treatment Notes Treatment Clinical Notes May, Mild intermittent asthma without complication (ICD-10 - J45.20) No change in treatment: continue LABA/ICS Use ARINA before exercise and as needed No ER visits for AE May, Primary hypertension (ICD-10 - I10) Uncontrolled This patient is instructed to consume a healthy, low-fat, low-salt diet. They are also encoura ged to continue exercise to achieve/maintain a normal BMI. Patient is instructed on home BP measurements: - rest for 5 minutes w/o talking- positioned w/ feet on floor and arm supported- average best 2/3 readings w/ goal < 135-85 _update office next week May, Chronic venous insufficiency (ICD-10 - I87.2) Avoid salt and elevate lower extremities, support stockings, inspect legs and feet daily for blisters and ulcerations. [facility] Other 06-27-2023 Evaluation note* Encounter Date Diagnosis Assessment Notes Treatment Notes Treatment Clinical Notes Apr, History of total right hip replacement (ICD-10 - Z96.641) [facility] Other 06-07-2023 Evaluation note* Encounter Date Diagnosis Assessment Notes Treatment Notes Treatment Clinical Notes Apr, Mild intermittent asthma without complication (ICD-10 - J45.20) Reviewed treatment of asthma: - LABA/ICS is maintenance treatment, can wean down if doing well - ARINA is to be used as needed, can be sole treatment of symptoms if frequency of attacks < 2x / week. Avoid smoke, dust, allergens etc May need to increase use of ARINA w/ exercise, change of seasons and w/ URI Apr, Primary hypertension (ICD-10 - I10) This patient is instructed to consume a healthy, low-fat, low-salt diet. They are also encouraged to continue exercise to achieve/maintain a normal BMI. Apr, SHERIF (generalized anxiety disorder) (ICD-10 - F41.1) Healthy diet, exercise and keep active [facility] Other 2023 Evaluation note* Encounter Date Diagnosis Assessment Notes Treatment Notes Treatment Clinical Notes March, Mild intermittent asthma without complication (ICD-10 - J45.20) [facility] Other 05-05-2023 Evaluation note* Encounter Date Diagnosis Assessment Notes Treatment Notes Treatment Clinical Notes March, Dyspnea on exertion (ICD-10 - R06.09) [facility] Other 04-24-2023 Evaluation note* Encounter Date Diagnosis Assessment Notes Treatment Notes Treatment Clinical Notes Feb, Shortness of breath (ICD-10 - R06.02) Feb, Subacute cough (ICD-10 - R05.2) [facility] Other 04-19-2023 Instructions* Patient Instructions* Juan Manuel Medina APRN.DATABASE ADMINISTRATOR - 03/05/2023 9:47 AM EDT Images from the original note were not included. Thank you for seeing me in clinic today. As we discussed, my recommendations are as follows: 1.Colonoscopy If you have any questions about the above treatment plan, please do not hesitate to call the officeor send me a [employer]ett message. Bowel Preparation Instructions for: Miralax-Gatorade Preparations IF YOU DO NOT FOLLOW THESE DIRECTIONS, YOUR COLONOSCOPY WILL BE CANCELLED. Marcum Instructions: Your bowel must be empty so that your doctor can clearly view your colon. Follow all of the instructions in this handout EXACTLY as they are written. Do NOT eat any solid food the ENTIRE day before your colonoscopy. Buy your bowel preparation at least 5 days before your colonoscopy. Four (4) Dulcolax laxative tablets containing 5mg of bisacodyl each (NOT Dulcolax stool softener) One (1) 8.3oz. bottle Miralax (238 grams) or generic equivalent 2 x 32oz. Bottles of Gatorade (NOT RED) Diabetic Patients: Use G2 (Gatorade 2) TRANSPORTATION on the Day of Your Exam A responsible adult MUST be present with you at Check In prior to your colonoscopy and REMAIN in the endoscopy area until you are discharged. You are NOT ALLOWED to drive, take a taxi or bus, or leave the Endoscopy Center ALONE. If you do not have a responsible jinriksha driver (family member or friend) withyou to take you home, your exam cannot be done with sedation and will be cancelled. Please bring a list of all of your current medications, including any Lklz-moj-Qftlpda medications with you. Medications If you take insulin, diabetic medications or blood thinners such as Coumadin (warfarin), Plavix (clopidogrel), Ticlid (ticlopidine hydrochloride), Agrylin (anagrelide), Xarelto (Rivaroxaban), Pradaxa(Dabigatran), Eliquis (Apixaban), and Effient (Prasugrel). You MUST call the doctors who orders those medicines for instructions on altering the dosage before your colonoscopy. All other medications should be taken the day of the exam with a sip of water including ASPIRIN. Five (5) Days Before Your Colonoscopy Do NOT take medicines that stop diarrhea - such as Imodium, Kaopectate, or Pepto Bismol. Do NOT take fiber supplements - such as Metamucil, Citrucel, or Perdiem. Do NOT take products that contain iron - such as multi-vitamins (the label lists what is in the products). Three (3) Days Before Your Colonoscopy Do NOT eat high-fiber foods - such as popcorn, beans, seeds (flax, sunflower, quinoa), multigrain bread, nuts, salad/vegetables, or fresh and dried fruit. 1 Bowel Preparation Instructions for: Miralax-Gatorade Preparations One (1) Day Before Your Colonoscopy Only drink clear liquids the ENTIRE DAY before your colonoscopy. Do NOT eat any solid foods. Drink at least 8 ounces of clear liquids every hour after waking up. The clear liquids you can drink include: Clear Liquid (NO RED LIQUIDS) DO NOT DRINK Gatorade, Pedialyte or Powerade Clear broth or bouillon Coffee or tea (no milk or non-dairy creamer) Carbonated and non-carbonated soft drinks Ariel-Aid or other fruit flavored drinks Strained fruit juices (no pulp) Jell-O, popsicles, hard candy Water Alcohol Milk or non-dairy creamers Noodles or vegetables in soup Juice with pulp Liquid you cannot see through Do not use tobacco/vaping products Mix 1/2 of Miralax bottle (119 grams) in each 32 ounces of Gatorade bottle until dissolved. Keep cool in the refrigerator. DO NOT ADD ICE. The bowel preparation solution will be consumed in two parts. Part 1 5:00 PM - Evening before your colonoscopy Take 4 Dulcolax tablets. 6 PM - Evening before your colonoscopy Drink 32 oz. of the mixed solution. Drink an 8 oz. glass of bowel preparation every 15 minutes for a total of 4 glasses. Fifteen (15) minutes later, drink an 8 oz. glass of of clear liquids every 15 minutes for a total of 2 glasses. You may continue to drink clear liquids till midnight. Part 2 On the day of your colonoscopy you may drink clear liquids up to (three) 3 hours prior to procedure. 4 1/2 hours before your colonoscopy Take another 32 oz. bottle of mixed solution. Drink an 8 oz. glass of bowel prep every 15 minutes for a total of 4 glasses. Fifteen (15) minutes later, drink an 8 oz. glass of clear liquids every 15 minutes for a total of 2glasses. You may continue to drink clear liquids up to (three) 3 hours before your exam. 2 10/2019 [facility] History and physical note * Juan Manuel Medina APRN.CNP - 03/05/2023 9:40 AM EDT Consultation requested by Dr. Ernesto Chacko for an opinion regarding Rectal Bleeding. My final recommendations will be communicated back to the requesting physician by way of shared medical record or fax. REASON FOR VISIT: Rectal Bleeding HPI: Isabel Waddell is a 62 year old female who presents for Rectal Bleeding. She admits to having consistent rectal bleeding for over the past year. She does have a history of endometrial cancer with radiation. She had a colonoscopy in 10/08 for evaluation of her bleeding that revealed multiple bleeding colonic angiectasia's which was treated with argon plasma. Patient states that her bleeding did not improve after this. She also had stool in the entire colon. She states that she did not complete her prep. She denies constipation. Past Clinical Work-Up: Colonoscopy - 09/26/22 - Preparation of the colon was fair. - Multiple bleeding colonic angioectasias. Treated with argon plasma coagulation (APC). - Stool in the entire examined colon. - No specimens collected. CT ABD/PEL - 12/13/21 1. 5 mm hepatic hypodensity, stable from the prior examination of 06/04/2021, likely related to a small cyst. 2. 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 3. No CT evidence for metastatic disease to the abdomen or pelvis. Recent Labs Component Latest Ref Rng & Units 01/03/2023 WBC 3.70 - 11.00 k/uL 4.51 RBC 3.90 - 5.20 m/uL 3.83 (L) Hemoglobin 11.5 - 15.5 g/dL 11.5 Hematocrit 36.0 - 46.0 % 35.4 (L) MCV 80.0 - 100.0 fL 92.4 MCH 26.0 - 34.0 pg 30.0 MCHC 30.5 - 36.0 g/dL 32.5 RDW-CV 11.5 - 15.0 % 13.0 Platelet Count 150 - 400 k/uL 235 MPV 9.0 - 12.7 fL 9.9 Neut% % 56.2 Abs Neut (ANC) 1.45 - 7.50 k/uL 2.53 Lymph% % 29.0 Abs Lymph 1.00 - 4.00 k/uL 1.31 Hodgeman% % 11.1 Abs Hodgeman <0.87 k/uL 0.50 Eosin% % 3.1 Abs Eosin <0.46 k/uL 0.14 Baso% % 0.4 Abs Baso <0.11 k/uL <0.03 Immature Gran % % 0.2 IMMATURE GRANS (ABS) <0.10 k/uL <0.03 NRBC /100 WBC 0.0 Absolute nRBC <0.01 k/uL <0.01 DTYPE Auto Iron 41 - 186 ug/dL 77 TIBC 232 - 386 ug/dL 382 Transferrin Saturation 15.0 - 57.0 % 20.2 Ferritin 14.7 - 205.1 ng/mL 14.2 (L) ALLERGIES No Known Allergies 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, diagnosed due to prolonged amenorrhea Thyroid disease PAST SURGICAL HISTORY Procedure Laterality Date ANESTH, SECTION x3 ARTHROSCOPY KNEE DIAGNOSTIC W/WO SYNOVIAL BX SPX Left 2016 Arthroscopy, knee BREAST SURGERY HX Right 1983 breast cysts COLONOSCOPY 2002 DILATION & CURETTAGE DX&/THER NONOBSTETRIC 06/29/2019 Dilation & curettage HYSTERECTOMY HX 08/12/2019 Robotic TLH, BSO, cystotomy repair KNEE ARTHROSCOPY Right x3 LAPAROSCOPY SURG CHOLECYSTECTOMY ~age 40s Cholecystectomy, lap RECONSTRUCT FINGER Right 2019 R thumb socket REMOVE PITUITARY TUMOR W/ SCOPE 1982 SHOULDER SURGERY HX Bilateral ~2012, 2014 FAMILY HISTORY Problem Relation Age of Onset Thyroid Mother Thyroid Maternal Grandmother Social History Tobacco Use Smoking status: Never Smokeless tobacco: Never Vaping Use Vaping Use: Never used Substance Use Topics Alcohol use: Yes Comment: 3 drinks per month Drug use: Never Current Outpatient Medications Medication Sig dicyclomine (BENTYL) 10 mg capsule Take 1 capsule by mouth before meals and at bedtime. As needed. carvedilol (COREG) 25 mg tablet Take 1 tablet by mouth twice daily. ascorbic acid, vitamin C, (VITAMIN C) 500 mg tablet Take 500 mg by mouth once daily. iv contrast (will be provided with radiology test) CT Chest ABD/PEL-Inject, intravenously, once for1 dose.No IV access, insert saline lock prior to the beginning of sedation, infusion, injection of imaging exam. Discontinue saline lock post exam. If Pt. has a central line or IVAD, may access for administration according to line specific nursing protocol. Once exam is complete flush line and de-access according to line specific nursing protocol in the CT contrast administration guidelines link.(Patient not taking: Reported on 03/13/2022 ) enteric contrast (will be provided with radiology test) For CT CHESTABD/PEL W IVCON Routine order Administer, As Directed One Time Only, via Oral, Rectal, both Oral and Rectal, Enteric Tube, Stoma orIndwelling Catheter, Enteric Contrast as designated per enteric contrast guidelines (Patient not taking: Reported on 03/13/2022 ) TURMERIC ORAL Take 1,000 mg by mouth once daily. venlafaxine ER (EFFEXOR XR) 150 mg 24 hr capsule Take 150 mg by mouth daily at bedtime. [id number]-FISH OIL-L.CASEI ORAL Take by mouth once daily. Lactobac no.41/Bifidobact no.7 (PROBIOTIC-10 ORAL) Take by mouth once daily. MULTIVITAMIN TAB Take one(1) tablet daily. B COMPLEX VITAMINS CAP Take one(1) capsule daily. CALCIUM CARBONATE-VIT D3-MINERALS 600 MG-400 UNIT TAB Take 1 tablet by mouth twice daily. No current facility-administered medications for this visit. I have confirmed and edited, if necessary, the PFSH obtained by others. REVIEW OF SYSTEMS: CONSTITUTIONAL: Negative for unintentional weight loss, malaise or fevers HEENT: Negative for frequent/significant headaches, changes in hearing/vision, nose bleeds or othernasal problems RESPIRATORY: Negative for cough, hemoptysis, wheezing or dyspnea CARDIOVASCULAR: Negative for chest pain, palpitations, syncope or lightheadedness GI: See HPI NEURO: Negative for encephalopathy, tremor or gait abnormality PSYCH: Negative for new changes in mood or affect I have confirmed and edited, if necessary, the PFSH obtained by others. PHYSICAL EXAM: BP 152/90 Pulse 85 Ht 167.6 cm (5' 6 ) Wt 70.2 kg (154 lb 12.8 oz) BMI 24.99 kg/m Gen: Comfortable in NAD Head: Normocephalic, atraumatic Skin: No jaundice, rashes or skin lesions Eyes: Sclera anicteric, conjunctiva pink Lungs: unlabored breathing Abd: Soft, non-distended, non-tender, bowel sounds present, no palpable masses or organomegaly Rectal Exam: Examination deferred by patient Neuro: Alert and oriented, no tremor or gross focal motor deficits Psych: Congruent mood and affect, appropriate insight and judgement ASSESSMENT/PLAN: Ms. Waddell is a 62 year old female with a history of endometrial cancer s/p radiation, HTN, and IBS present for rectal bleeding. She admits to having consistent rectal bleeding for over the past year. She does have a history of endometrial cancer with radiation. She had a colonoscopy in 10/08 for evaluation of her bleeding that revealed multiple bleeding colonic angiectasia's which was treated withargon plasma. Patient states that her bleeding did not improve after this. She also had stool in the entire colon. She states that she did not complete her prep. She denies constipation. I recommend repeating her colonoscopy with possible APC. I explained the importance of completing her prep to ensure an adequate exam. Procedure/risks were discussed with the patient in great detail including therisk of sedation and bleeding. Patient is agreeable with proceeding and instructed to call with anyquestions or concerns. 1. Rectal bleeding - ICD9: 569.3, ICD10: K62.5 - COLONOSCOPY (THERAPEUTIC) -radiation proctitis?? This note was dictated using [employer] speech recognition software and may contain some errors that were a result of the program not accurately transcribing what was dictated. Juan Manuel Medina APRN.MONSERRAT documented in this [facility] Evaluation note* Encounter Date Diagnosis Assessment Notes Treatment Notes Treatment Clinical Notes Jan, Acute bronchitis due to other specified organisms (ICD-10 - J20.8) Instructed to use Robitussin or Mucinex for cough, saline or Flonase NS for congestion, Tylenol for pain and fever. [facility] [employer] Other 03-06-2023 Evaluation note* Encounter Date Diagnosis Assessment Notes Treatment Notes Treatment Clinical Notes Jan, Bilateral acute otitis media (ICD-10 - H66.93) Ear infections are often a secondary infection caused from an URI, the flu or allergies. Take medication as directed. Complete all doses, even if you feel better. Tylenol or ibuprofen can help with pain. Warm pack to area for comfort helps as well. Follow up with primary care provider if no improvement of symptoms. Jan, Bronchitis (ICD-10 - J40) Take medications as directed. Rest and increase fluid intake. Take meds with food to prevent stomach upset. Use inhaler as needed for coughing spells and SOB. It is better to use inhaler a few times a day over the next 2-3 days. Follow up with primary care provider if symptoms do not improve with treatment plan, although it may take a few weeks for the cough to go away [facility] [employer] Other 02-17-2023 NoteHNO ID: [id number] Author: Henry Ramos MD Service: ? Author Type: Physician Type: Progress Notes Filed: 01/12/2023 11:27 PM Note Text: Gynecologic Oncology [facility] Follow up visit Date of service: 01/03/2023 PROBLEM/CC: Isabel Waddell presents for follow-up of endometrial cancer. HPI: Ms. 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 Vaginal biopsy performed on 05/25/2021 showed tumor cells diffusely and strongly positive for immunohistochemical stain for PAX 8 supporting a diagnosis of endometrioid adenocarcinoma Last office visit: 08/07/2022 ONCOLOGY HISTORY: PRIOR THERAPY AND DATE: 06/29/2019: [facility] - Endometrioid adenocarcinoma, FIGO 2; confirmed by [facility] Pathology 08/12/2019: Robotic total hysterectomy, bilateral salpingo-oophorectomy, cystotomy/cystotomy repair and cystoscopy PATHOLOGY: 08/12/2019- Moderately differentiated adenocarcinoma, endometrioid cell type with mucinous and squamous differentiation, FIGO grade 2. Neg LVSI, 13% W[place] pT1a (IA): Tumor limited to endometrium or invades less than 1/2 of the myometrium 05/25/2021 Vaginal biopsy Vagina, biopsy - Consistent with endometrioid adenocarcinoma (see comment). GZ/ka 05/28/2021 COMMENT The tumor cells are diffusely and strongly positive for immunohistochemical stain for [place] 8, supporting the above diagnosis. The patient has a history of FIGO grade 2 endometrial endometrioid adenocarcinoma in 2019. 06/04/2021 CT Chest, Abdomen, Pelvis 1. No CT evidence of metastatic disease in the chest. No measurable vaginal recurrence. No metastatic disease. GENETIC TESTIN06/2019: Normal MMR expression HISTORIES: 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, diagnosed due to prolonged amenorrhea Thyroid disease PAST SURGICAL HISTORY Procedure Laterality Date ANESTH, SECTION x3 ARTHROSCOPY KNEE DIAGNOSTIC W/WO SYNOVIAL BX SPX Left 2016 Arthroscopy, knee BREAST SURGERY HX Right 1983 breast cysts COLONOSCOPY 2002 DILATION AND CURETTAGE DXAND/THER NONOBSTETRIC 06/29/2019 Dilation AND curettage HYSTERECTOMY HX 08/12/2019 Robotic TLH, BSO, cystotomy repair KNEE ARTHROSCOPY Right x3 LAPAROSCOPY SURG CHOLECYSTECTOMY ~age 40s Cholecystectomy, lap RECONSTRUCT FINGER Right 2020 R thumb socket REMOVE PITUITARY TUMOR W/ SCOPE 1982 SHOULDER SURGERY HX Bilateral ~2012, 2014 FAMILY HISTORY Problem Relation Age of Onset Thyroid Mother Thyroid Maternal Grandmother SOCIAL HISTORY: Social History Tobacco Use Smoking status: Never Smokeless tobacco: Never Vaping Use Vaping Use: Never used Substance Use Topics Alcohol use: Yes Comment: 3 drinks per month Drug use: Never Marital Status: PAST GYNECOLOGIC HISTORY: OB History T0 L3 SAB0 IAB0 Ectopic0 Multiple0 Live Births3 LMP: No LMP recorded. Patient has had a hysterectomy. HEALTH MAINTENANCE: Last pap: 2021 Last mammogram: 2021 Last colonoscopy: 09/26/2022 Impression: - Preparation of the colon was fair. - Multiple bleeding colonic angioectasias. Treated with argon plasma coagulation (APC). - Stool in the entire examined colon. - No specimens collected. ALLERGIES No Known Allergies MEDICATIONS dicyclomine (BENTYL) 10 mg capsule Take 1 capsule by mouth before meals and at bedtime. As needed. carvedilol (COREG) 25 mg tablet Take 1 tablet by mouth twice daily. ascorbic acid, vitamin C, (VITAMIN C) 500 mg tablet Take 500 mg by mouth once daily. iv contrast (will be provided with radiology test) CT Chest ABD/PEL-Inject, intravenously, once for 1 dose.No IV access, insert saline lock prior to the beginning of sedation, infusion, injection of imaging exam. Discontinue saline lock post exam. If Pt. has a central line or IVAD, may access for administration according to line specific nursing protocol. Once exam is complete flush line and de-access according to line specific nursing protocol in the CT contrast administration guidelines link. (Patient not taking: Reported on 03/13/2022 ) enteric contrast (will be provided with radiology test) For CT CHESTABD/PEL W IVCON Routine order Administer, As Directed One Time Only, via Oral, Rectal, both Oral and Rectal, Enteric Tube, Stoma or Indwelling Catheter, Enteric Contrast as designated per enteric contrast guidelines (Patient not taking: Reported on 03/13/2022 ) TURMERIC ORAL Take 1,000 mg by mouth once daily. venlafaxine ER (EFFEXOR XR) 150 mg 24 hr capsule Take 150 mg by mouth daily at bedtime. [id number]-FISH OIL-L.CASEI ORAL Take by mouth once daily. Lactobac no.41/Bifidobact no.7 (PROBIOTIC-10 ORAL) Take by mouth once daily. MULTIVITAMIN TAB Take (more content not included)...[facility] 01-03-2023 History of Present illness Narrative* Henry Ramos MD - 01/03/2023 3:20 PM EST Gynecologic Oncology [facility] Follow up visit Date of service: 01/03/2023 PROBLEM/CC: Isabel Waddell presents for follow-up of endometrial cancer. HPI: Ms. 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 Vaginal biopsy performed on 05/25/2021 showed tumor cellsdiffusely and strongly positive for immunohistochemical stain for PAX 8 supporting a diagnosis of endometrioid adenocarcinoma Last office visit: 08/07/2022 ONCOLOGY HISTORY: PRIOR THERAPY & DATE: 06/29/2019: D&C - Endometrioid adenocarcinoma, FIGO 2; confirmed by [facility] Pathology 08/12/2019: Robotic total hysterectomy, bilateral salpingo-oophorectomy, cystotomy/cystotomy repair and cystoscopy PATHOLOGY: 08/12/2019- Moderately differentiated adenocarcinoma, endometrioid cell type with mucinous and squamous differentiation, FIGO grade 2. Neg LVSI, 13% [place] pT1a (IA): Tumor limited to endometrium or invades less than 1/2 of the myometrium 05/25/2021 Vaginal biopsy Vagina, biopsy - Consistent with endometrioid adenocarcinoma (see comment). GZ/fiorella 05/28/2021 COMMENT The tumor cells are diffusely and strongly positive for immunohistochemical stain for [place] 8, supporting the above diagnosis. The patient has a history of FIGO grade 2 endometrial endometrioid adenocarcinoma in 2019. 06/04/2021 CT Chest, Abdomen, Pelvis 1. No CT evidence of metastatic disease in the chest. No measurable vaginal recurrence. No metastatic disease. GENETIC TESTIN06/2019: Normal MMR expression HISTORIES: 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, diagnosed due to prolonged amenorrhea Thyroid disease PAST SURGICAL HISTORY Procedure Laterality Date ANESTH, SECTION x3 ARTHROSCOPY KNEE DIAGNOSTIC W/WO SYNOVIAL BX SPX Left 2017 Arthroscopy, knee BREAST SURGERY HX Right 1984 breast cysts COLONOSCOPY 2003 DILATION & CURETTAGE DX&/THER NONOBSTETRIC 06/29/2019 Dilation & curettage HYSTERECTOMY HX 08/12/2019 Robotic TLH, BSO, cystotomy repair KNEE ARTHROSCOPY Right x3 LAPAROSCOPY SURG CHOLECYSTECTOMY ~age 40s Cholecystectomy, lap RECONSTRUCT FINGER Right 2019 R thumb socket REMOVE PITUITARY TUMOR W/ SCOPE 1982 SHOULDER SURGERY HX Bilateral ~2012, 2014 FAMILY HISTORY Problem Relation Age of Onset Thyroid Mother Thyroid Maternal Grandmother SOCIAL HISTORY: Social History Tobacco Use Smoking status: Never Smokeless tobacco: Never Vaping Use Vaping Use: Never used Substance Use Topics Alcohol use: Yes Comment: 3 drinks per month Drug use: Never Marital Status: PAST GYNECOLOGIC HISTORY: OB History T0 L3 SAB0 IAB0 Ectopic0 Multiple0 Live Births3 LMP: No LMP recorded. Patient has had a hysterectomy. HEALTH MAINTENANCE: Last pap: 2021 Last mammogram: 2021 Last colonoscopy: 09/26/2022 Impression: - Preparation of the colon was fair. - Multiple bleeding colonic angioectasias. Treated with argon plasma coagulation (APC). - Stool in the entire examined colon. - No specimens collected. ALLERGIES No Known Allergies MEDICATIONS dicyclomine (BENTYL) 10 mg capsule Take 1 capsule by mouth before meals and at bedtime. As needed. carvedilol (COREG) 25 mg tablet Take 1 tablet by mouth twice daily. ascorbic acid, vitamin C, (VITAMIN C) 500 mg tablet Take 500 mg by mouth once daily. iv contrast (will be provided with radiology test) CT Chest ABD/PEL-Inject, intravenously, once for1 dose.No IV access, insert saline lock prior to the beginning of sedation, infusion, injection of imaging exam. Discontinue saline lock post exam. If Pt. has a central line or IVAD, may access for administration according to line specific nursing protocol. Once exam is complete flush line and de-access according to line specific nursing protocol in the CT contrast administration guidelines link.(Patient not taking: Reported on 03/13/2022 ) enteric contrast (will be provided with radiology test) For CT CHESTABD/PEL W IVCON Routine order Administer, As Directed One Time Only, via Oral, Rectal, both Oral and Rectal, Enteric Tube, Stoma orIndwelling Catheter, Enteric Contrast as designated per enteric contrast guidelines (Patient not taking: Reported on 03/13/2022 ) TURMERIC ORAL Take 1,000 mg by mouth once daily. venlafaxine ER (EFFEXOR XR) 150 mg 24 hr capsule Take 150 mg by mouth daily at bedtime. [id number]-FISH OIL-L.CASEI ORAL Take by mouth once daily. Lactobac no.41/Bifidobact no.7 (PROBIOTIC-10 ORAL) Take by mouth once daily. MULTIVITAMIN TAB Take one(1) tablet daily. B COMPLEX VITAMINS CAP Take one(1) capsule daily. CALCIUM CARBONATE-VIT D3-MINERALS 600 MG-400 UNIT TAB Take 1 tablet by mouth twice daily. INTERVAL HISTORY: Isabel Waddell reports that she feels fine. She presents today alone. Patient reports constat, persistent bleeding and clotting from the rectum almost daily since her last colonoscopy. Bleeding has beensoaking through her pants. Colonoscopy was 09/26/22 where she was found to have multiple diffuse angioectasias with bleeding were found in the distal rectum. Coagulation for hemostasis using argon plasma at 1.4 liters/minute and 30 garcia was successful. No vaginal bleeding. She has been using the dilator consistently and feels it is improving. She has a trip planned to [facility] next week for 10 days. PHYSICAL EXAM: VITALS: BP 141/87 Pulse 95 Temp 36.6 C (97.8 F) Ht 167.6 cm (5' 6 ) Wt 71.2 kg (156 lb 14.4oz) SpO2 99% BMI 25.32 kg/m Giovanna Cruz MA GENERAL: Patient is a well developed, well nourished, no acute distress. Presenting alone SKIN: Color, texture, turgor normal. No rashes or lesions. HEENT: Normocephalic, atraumatic, mucus membranes moist, and no lesions NECK: Supple, no adenopathy; thyroid symmetric, normal size, no bruits LUNGS: Respirations unlabored. Chest clear. HEART: Regular rate and rhythm. No murmer. No JVD. ABDOMEN: Nontender. No palpable masses. No hernia felt. Liver and spleen not palpably enlarged. No ascites apparent. PELVIC: Vulva normal in appearance and nontender. Mild angiectasia to distal vagina. Vagina stenosis beginning 3 cm from introitus, no visible evidence of recurrence. No vaginal bleeding. PSYCHIATRIC: Alert, cooperative. Normal affect. Normal behavior. LYMPH NODES: No palpable enlarged nodes in neck, groin or axilla. NEURO: Normal sensory. Motor intact and symmetric. Gait normal. LOWER EXTREMITIES: Not tender. No ulcers or swelling. Deep tendon reflexes are present F[employer]ot Heater Helper for exam: Gurpreet Villarreal APRN.CNP RESULTS: CA 125 (U/mL) Date Value 12/13/2021 9 06/04/2021 8 07/12/2019 15 No new results to review ASSESSMENT & PLAN: 05/25/2021-Dee Dee Carter APRN.CNP IA endometrioid type endometrial adenocarcinoma, FIGO grade 2, - LVSI, 13% depth of invasion s/p TLH/BSO 07/2019 - Polypoid vaginal tissue - Atrophic vagina with bleeding on contact - Vasomotor symptoms PLAN: Endometrial Cancer - Sending vaginal tissue to pathology for diagnostic identification. Will call patient with result next week. - If tissue is benign, RTC in 6 months. Vasomotor/Menopause symptoms - Referral to Dr. Sita Naidu [facility] - Mammogram gets this done locally, will review with PCP - Colonoscopy due, will review with PCP 05/30/2021- Dee Dee Carter APRN.DATABASE ADMINISTRATOR (distance health visit) 61 yo female with h/o Stage IA endometrioid type endometrial adenocarcinoma, FIGO grade 2 s/p surgery in 08/12/2019. LILIAN for 22 months. Now with recurrent endometrial cancer in the vagina based on tissue pathology. There was no other obvious tumor in the vagina on speculum exam last week. PLAN: - Pathology/cancer recurrence reviewed with patient - Recommend CT C/A/P for staging - CA-215 blood test - Rad/Onc referral, 06/06 - Appt with Dr. Ramos same day at Rad/Onc for pelvic exam and further treatment discussion, 06/[address] scans done prior to 06/06. Patient verbalized an understanding and agreed with the plan. She took the news as would be expected. Instructed to call if she has any questions or concerns. 06/06/2021 61 yo female with h/o Stage IA endometrioid type endometrial adenocarcinoma, FIGO grade 2 s/p surgery in 08/12/2019. Recently discovered to have vaginal recurrence (asymptomatic) Patient denies changes in appetite, bowel movements, vaginal bleeding, bladder function, abdominal pain or any abnormal changes to health overall. Today's clinic examination without evidence of residual lesion seen or felt in vagina. No distant disease on clinical exam or xrays. Significance of this situation discussed. Advise RT with curative intent Radiation Oncology has assessed her today already. Test vaginal lesion for ER/MT receptors See me September 19 for post treatment exam. 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 Will repeat imaging atthis time since completed radiation. Patient to follow up in 3 months for pelvic exam at that time. Discussed dilator use. 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 Referral placed to gastroenterology. Patient is also due for repeat colonoscopy. Palpitations: Suspect related to hyperthyroidism, advised follow up with PCP and Home Hospice Rn. Ernesto Chacko APRN.DATABASE ADMINISTRATOR 03/13/2022 Recurrent Endometrial cancer with recurrence in the vagina treated with radiation therapy. Radiation was completed in August. This is her first pelvic exam since finishing radiation. LILIAN on today's assessment She does not use her vaginal dilator and has significant narrowing of the foreshortened vagina. Plan: We discussed the importance of dilating and lengthening the vagina for her comfort and for better assessment for office exams. She was provided with a extra small + dilator with instructions on use. She says she is confident that she can begin to use as advised. See me in another 4 months for another cancer surveillance visit. 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 Importance of using dilator to keep stenosis from worsening was discussed. She has been having blood per rectum, occasional with clots for the last couple months. Painless. Last colonoscopy several years ago. This could reflect radiation proctitis or some other lesion in the lower GI tract. PLAN Referral to GI specialist where I suspect an endoscopic check of the area will be scheduled. CBC will be checked for evidence of any anemia. She still has her vaginal dilator at home and uses it infrequently. Advised to use it more frequently as discussed at last visit. Follow up in clinic in December, for continued cancer surveillance. 01/03/2023 ASSESSMENT History of recurrent endometrial cancer No evidence of recurrence on today's exam. She has been troubled by persistent rectal bleeding since her colonoscopy in September 2022. Bleeding is heavy with clots. Reviewed management options for rectal bleeding including , medicated enema, hyperbaric chamber therapy, and surgery. PLAN Labs to be drawn today for CBC and ferritin. Recommend she start following with a [facility] quality assurance assistant for her rectal bleeding. We will assistwith GI referral. This clinic will be in touch following labs for a potential iron prescription. Follow up in 6 months for continued surveillance. Documentation from my notes of previous visit of 08/07/2022 was copied and pasted, documentation hasbeen reviewed and edited as necessary and is current for today. ATTESTATION: By signing my name below, I, Olya Klein, attest that this documentation has been prepared under the direction and in the presence of Henry Ramos MD. I, Henry Ramos MD, agree that the above note, as documented by my scribe, accurately describes my encounter with the patient today. Electronically signed:Blu Markham, Henry Ramos MD, Physician, January 03, 2023 4:37 PM documented in this encounterWayne [facility]02-08-2023 Miscellaneous Notes* Telephone Encounter - Aretha Pena RN - 12/25/2022 2:21 PM EST Call placed to pt. No answer. Detailed VM left explaining that she is due for follow up with Rachel anyway so he would like to see her in the office either 01/03 or 01/10 and to please call to schedule that appt. Also reiterated that a consult to GI was placed back in 07/2022 r/t rectal bleeding from radiation. She still needs to schedule that appt and be seen by them. Asked that she call the office with questions and to schedule. Aretha Pena RN * Telephone Encounter - Aretha Pena RN - 12/25/2022 2:19 PM EST ----- Message from Jadyn Longle sent at 12/25/2022 12:04 PM EST ----- Regarding: Mason Patient bleeding and clotting almost daily since Colonoscopy. September was the Colonoscopy. Concerned and would like to know if she should schedule an appointment. [phone] documented in this encounterWayne Healthcare [facility] Campus11-10-2022 Nurse Note* Francisca Gómez RN - 09/26/2022 12:22 PM EST AMBULATORY PATIENT EDUCATION NOTE TOPIC: GI PROCEDURES: Colonoscopy with or without biopsies based on clinical findings READINESS TO LEARN INSTRUCTION PROVIDED TO: Patient, readness to learn accessed prior to procedure COGNITIVE ABILITY: Alert and oriented PTED MOTIVATION TO LEARN: Interested FAMILY SUPPORT: Moderate - Family present but overwhelmed IPATIENT LEARNS BEST BY: Individual Instruction FACTORS AFFECTING LEARNING: None PHYSICAL LIMITATIONS AFFECTING LEARNING: None LEARNING RESPONSE METHOD OF INSTRUCTION: Individual instruction PATIENT / FAMILY RESPONSE: Verbalizes understanding of: WORSENING CONDITION- Signs and symptoms of aworsening condition that warrant a call to the physician FOLLOW-UP PLAN: Complete - No need for follow-up SUPPLEMENTAL MATERIAL: Procedure Discharge Instructions REFERRAL (RECOMMENDATION): None Electronically Signed By: Francisca Gómez RN * Isaura Mao RN - 09/26/2022 11:13 AM EST PRE OP LEARNING ASSESSMENT PROCEDURE/SURGERY: GI PROCEDURES: Colonoscopy READINESS TO LEARN COGNITIVE ABILITY: Alert and oriented MOTIVATION TO LEARN: Interested FAMILY SUPPORT: None - Unavailable/disinterested PATIENT LEARNS BEST BY: Individual Instruction FACTORS AFFECTING LEARNING: None PHYSICAL LIMITATIONS AFFECTING LEARNING: None Electronically Signed By: Isaura Mao RN In Department: GASTROENTEROLOGY documented in this encounterWayne Healthcare [facility] Campus11-10-2022 Miscellaneous Notes* Sedation Documentation - Aretha Deluna RN - 09/26/2022 12:00 PM EST Grounding pad placed at right flank. Skin Intact. LOT#[id number]. documented in this encounterWayne Healthcare [facility] Campus11-03-2022 Miscellaneous Notes* Telephone Encounter - Kelly Ch MA - 09/19/2022 3:49 PM EDT Attempted to reach the patient at the contact number that they provided [phone] (home) . Unable to speak with patient so without identifying the patient the following information was left on their voice mail: Date of procedure, location and report time Prep instructions A message was left informing the patient/patient in store representative they must have a responsible adult accompany them to their procedure; and remain in the endoscopy area until they are discharged. Failure to have a responsible adult accompany the patient to their procedure appointment prevents the useof sedation or anesthesia for their procedure; and can result in cancellation of the procedure NPO instructions were reviewed. Clear liquids the day before the procedure, stop all liquids 4 hours before the procedure Instructions to contact their primary care provider regarding their medications and which medications to stop in preparation for their procedure Instructions to completely read and follow the written instructions that they recieved regarding their procedure. Number to call with questions or concerns [phone] Number to call to cancel their procedure [phone] Kelly Ch MA documented in this encounterWayne Healthcare Main Campus09-21-2022 Instructions* Patient Instructions* Ernesto Chacko APRN.MONSERRAT - 08/07/2022 3:59 PM EDT Images from the original note were not included. Bowel Preparation Instructions for: Golytely, Nulytely, Trilyte or Colyte (polyethylene glycol 3350and electrolytes) IF YOU DO NOT FOLLOW THESE DIRECTIONS, YOUR COLONOSCOPY WILL BE CANCELLED. Marcum Instructions: Your bowel must be empty so that your doctor can clearly view your colon. Follow all of the instructions in this handout EXACTLY as they are written. Do NOT eat any solid food the ENTIRE day before your colonoscopy. Drink only clear liquids. Buy your bowel preparation at least 5 days before your colonoscopy. TRANSPORTATION on the Day of Your Exam A responsible person MUST be present with you at Check In prior to your colonoscopy and REMAIN in the endoscopy area until you are discharged. You are NOT ALLOWED to drive, take a taxi or bus, or leave the Endoscopy Center ALONE. If you do not have a responsible jinriksha driver (family member or friend) with you to take you home, your exam cannot be done with sedation and will be cancelled. Please bring a list of all of your current medications, including any Over-the Counter medications with you. Medications If you take insulin, diabetic medications or blood thinners such as Coumadin (warfarin), Plavix (clopidogrel), Ticlid (ticlopidine hydrochloride), Agrylin (anagrelide), Xarelto (Rivaroxaban), Pradaxa(Dabigatran), Eliquis (Apixaban), and Effient (Prasugrel). You MUST call the doctors who orders those medicines for instructions on altering the dosage before your colonoscopy. All other medications should be taken the day of the exam with a sip of water including ASPIRIN. Five (5) Days Before Your Colonoscopy Do NOT take medicines that stop diarrhea - such as Imodium, Kaopectate, or Pepto Bismol. Do NOT take fiber supplements - such as Metamucil, Citrucel, or Perdiem. Do NOT take products that contain iron - such as multi-vitamins (the label lists what is in the products). Do NOT take Vitamin E. Buy the prescription bowel preparation solution at your local pharmacy or drugstore pharmacy. 10/2019 Bowel Preparation Instructions for: Golytely, Nulytely, Trilyte or Colyte (polyethylene glycol 3350and electrolytes) Three (3) Days Before Your Colonoscopy Do NOT eat high-fiber foods - such as popcorn, beans, seeds (flax, sunflower, quinoa), multigrain bread, nuts, salad/vegetables, or fresh and dried fruit. One (1) Day Before Your Colonoscopy Only drink clear liquids the ENTIRE DAY before your colonoscopy. Do NOT eat any solid foods. Drink at least 8 ounces of clear liquids every hour after waking up. The clear liquids you can drink include: Clear Liquid (NO RED LIQUIDS) DO NOT DRINK Gatorade, Pedialyte or Powerade Clear broth or bouillon Coffee or tea (no milk or non-dairy creamer) Carbonated and non-carbonated soft drinks Ariel-Aid or other fruit flavored drinks Strained fruit juices (no pulp) Jell-O, popsicles, hard candy Water Alcohol Milk or non-dairy creamers Noodles or vegetables in soup Juice with pulp Liquid you cannot see through Do not use tobacco/vaping products The bowel preparation solution will be consumed in two parts. Mix the solution the evening before your colonoscopy and refrigerate before drinking. You may add the flavor pack that came with the bowel preparation. Do NOT add ice, sugar or any other flavorings to the solution. Part 1 At 6:00 PM - Evening before your colonoscopy Drink an 8-oz glass of bowel preparation every 10 minutes for a total of 8 glasses. You may continue to drink clear liquids until midnight. Part 2 On the day of your colonoscopy you may drink clear liquids up to (three) 3 hours before your procedure. 4 1/2 hours before your colonoscopy Drink an 8-oz glass of bowel preparation every 10 minutes for a total of 8 glasses. Fifteen (15) minutes later, drink an 8-oz glass of clear liquids every 15 minutes for a total of 2 glasses. You may continue to drink clear liquids up to (three) 3 hours before your exam. 2 10/2019 documented in this encounterWayne [facility]09-21-2022 History of Present illness Narrative* Henry Ramos MD - 08/07/2022 3:20 PM EDT Gynecologic Oncology [facility] Follow up visit Date of service: 08/07/2022 PROBLEM/CC: Isabel Waddell presents for follow-up of endometrial cancer. HPI: Ms. 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 Vaginal biopsy performed on 05/25/2021 showed tumor cellsdiffusely and strongly positive for immunohistochemical stain for PAX 8 supporting a diagnosis of endometrioid adenocarcinoma Last office visit: 03/13/2022 ONCOLOGY HISTORY: PRIOR THERAPY & DATE: 06/29/2019: D&C - Endometrioid adenocarcinoma, FIGO 2; confirmed by [facility] Pathology 08/12/2019: Robotic total hysterectomy, bilateral salpingo-oophorectomy, cystotomy/cystotomy repair and cystoscopy PATHOLOGY: 08/12/2019- Moderately differentiated adenocarcinoma, endometrioid cell type with mucinous and squamous differentiation, FIGO grade 2. Neg LVSI, 13% [place] pT1a (IA): Tumor limited to endometrium or invades less than 1/2 of the myometrium 05/25/2021 Vaginal biopsy Vagina, biopsy - Consistent with endometrioid adenocarcinoma (see comment). GZ/ka 05/28/2021 COMMENT The tumor cells are diffusely and strongly positive for immunohistochemical stain for [place] 8, supporting the above diagnosis. The patient has a history of FIGO grade 2 endometrial endometrioid adenocarcinoma in 2019. 06/04/2021 CT Chest, Abdomen, Pelvis 1. No CT evidence of metastatic disease in the chest. No measurable vaginal recurrence. No metastatic disease. GENETIC TESTIN06/2019: Normal MMR expression HISTORIES: 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, diagnosed due to prolonged amenorrhea Thyroid disease PAST SURGICAL HISTORY Procedure Laterality Date ANESTH, SECTION x3 ARTHROSCOPY KNEE DIAGNOSTIC W/WO SYNOVIAL BX SPX Left 2017 Arthroscopy, knee BREAST SURGERY HX Right 1983 breast cysts COLONOSCOPY 2003 DILATION & CURETTAGE DX&/THER NONOBSTETRIC 06/29/2019 Dilation & curettage HYSTERECTOMY HX 08/12/2019 Robotic TLH, BSO, cystotomy repair KNEE ARTHROSCOPY Right x3 LAPAROSCOPY SURG CHOLECYSTECTOMY ~[age] 40s Cholecystectomy, lap RECONSTRUCT FINGER Right 2020 R thumb socket REMOVE PITUITARY TUMOR W/ SCOPE 1982 SHOULDER SURGERY HX Bilateral ~2012, 2014 FAMILY HISTORY Problem Relation Age of Onset Thyroid Mother Thyroid Maternal Grandmother SOCIAL HISTORY: Social History Tobacco Use Smoking status: Never Smokeless tobacco: Never Vaping Use Vaping Use: Never used Substance Use Topics Alcohol use: Yes Comment: 3 drinks per month Drug use: Never Marital Status: PAST GYNECOLOGIC HISTORY: OB History T0 L3 SAB0 IAB0 Ectopic0 Multiple0 Live Births3 LMP: No LMP recorded. Patient has had a hysterectomy. HEALTH MAINTENANCE: Last pap: Last mammogram: Last colonoscopy: ALLERGIES No Known Allergies dicyclomine (BENTYL) 10 mg capsule Take 1 capsule by mouth before meals and at bedtime. As needed. carvedilol (COREG) 25 mg tablet Take 1 tablet by mouth twice daily. ascorbic acid, vitamin C, (VITAMIN C) 500 mg tablet Take 500 mg by mouth once daily. TURMERIC ORAL Take 1,000 mg by mouth once daily. venlafaxine ER (EFFEXOR XR) 150 mg 24 hr capsule Take 150 mg by mouth daily at bedtime. TPCI8-TMC-JTS-FISH OIL-L.CASEI ORAL Take by mouth once daily. Lactobac no.41/Bifidobact no.7 (PROBIOTIC-10 ORAL) Take by mouth once daily. MULTIVITAMIN TAB Take one(1) tablet daily. B COMPLEX VITAMINS CAP Take one(1) capsule daily. CALCIUM CARBONATE-VIT D3-MINERALS 600 MG-400 UNIT TAB Take 1 tablet by mouth twice daily. iv contrast (will be provided with radiology test) CT Chest ABD/PEL-Inject, intravenously, once for1 dose.No IV access, insert saline lock prior to the beginning of sedation, infusion, injection of imaging exam. Discontinue saline lock post exam. If Pt. has a central line or IVAD, may access for administration according to line specific nursing protocol. Once exam is complete flush line and de-access according to line specific nursing protocol in the CT contrast administration guidelines link.(Patient not taking: Reported on 03/13/2022 ) enteric contrast (will be provided with radiology test) For CT CHESTABD/PEL W IVCON Routine order Administer, As Directed One Time Only, via Oral, Rectal, both Oral and Rectal, Enteric Tube, Stoma orIndwelling Catheter, Enteric Contrast as designated per enteric contrast guidelines (Patient not taking: Reported on 03/13/2022 ) INTERVAL HISTORY: Isabel Waddell, 62 y/o female, presents alone today for follow up. is not currently experiencing anxiety over recurrence, she is optimistic. She has been experiencing daily light rectal bleeding over the past few months. The blood is described as clot containing. Her post-radiation abnormal bowel movements and pain with urination have resolved and returned to normal. She has been using her dilator periodically, she is not currently sexually active. She recently shut her left thumb in her camper door, the nail is black at the base. PHYSICAL EXAM: VITALS: BP 132/91 Wt 68.9 kg (152 lb) SpO2 98% BMI 23.99 kg/m GENERAL: Looks well. She is here by herself. SKIN: Resolving subungual hematoma on her right thumb. LUNGS: Clear to auscultation. HEART: Regular rate & rhythm. ABDOMEN: Non-tender. No hernia. No mass. Well healed scar on right hip from hip replacement. PELVIC: No evidence of cancer. Vulva normal. Vagina foreshortened to approximately 3.5 cm depth, unable to breakup any adhesions at today's visit. Uterus and cervix absent. Rectal exam performed, soft brown stool. No obvious blood. No palpable ulcer. LYMPH NODES: No enlarged lymph nodes in neck, axilla, or groin. LOWER EXTREMITIES: No swelling or edema. Fagot Heater Helper for exam: Promise Mclaughlin MA RESULTS: 05/25/2021 - VAGINAL BIOPSY Vagina, biopsy - Consistent with endometrioid adenocarcinoma (see comment). GZ/ka 05/28/2021 COMMENT The tumor cells are diffusely and strongly positive for immunohistochemical stain for [place] 8, supporting the above diagnosis. The patient has a history of FIGO grade 2 endometrial endometrioid adenocarcinoma in 2019. 06/04/2021- CT ABD/PEL IMPRESSION: No measurable vaginal recurrence. No metastatic disease. RESULT: Liver: Subcentimeter low-attenuation lesion in segment III (2:27), too small to characterize, but likely benign. Biliary: No bile duct dilation. Cholecystectomy. Spleen: No mass. No splenomegaly. Pancreas: No mass or duct dilation. Adrenals: No mass. Kidneys: No mass, calculus or hydronephrosis. GI tract: No dilation or wall thickening. Lymph nodes: No abdominal or pelvic lymphadenopathy. Mesentery/Peritoneum: No ascites or mass. Retroperitoneum: No mass. Vasculature: The celiac axis and SMA are patent. The portal vein and branches, splenic vein, SMV, and hepatic veins are patent. Arterial atherosclerotic disease without aneurysm. Pelvis: No ascites or fluid collection. Hysterectomy. No measurable vaginal lesion. Smooth, nonspecific periurethral enhancement. Bones/Soft Tissues: Degenerative change. No destructive lesion. Lower thorax: A chest CT performed will be reported separately. 06/04/2021- CT CHEST IMPRESSION: 1. No CT evidence of metastatic disease in the chest. RESULT: Limitations: None. Lines, tubes, and devices: None. Lung parenchyma and airways: The central airways are patent and devoid of endobronchial lesion. There is a 10 mm x 12 mm calcified right lower lobe nodule representing a granuloma. There is a area of decreased attenuation in the left lower lobe, which may represent air trapping. No consolidation. Pleural space: No pleural effusion. No pleural thickening. Lower neck, lymph nodes, and mediastinum: The imaged thyroid gland is heterogenous with subcentimeter hypodense nodules. No lymphadenopathy in the supraclavicular, axillary, mediastinal, or hilar regions. Calcified mediastinal and right hilar lymph nodes represent remote granulomatous disease. The esophagus is nondilated. Heart, pericardium, and thoracic vessels: The thoracic aorta and main pulmonary artery are normal in caliber. The cardiac chambers are normal in size. No coronary artery atherosclerotic calcifications are noted, although the study is not optimized for coronary assessment. No pericardial effusion or thickening. Bones and soft tissues: No destructive bone lesion. Lucent lesion in the T6 vertebral body likely represents a hemangioma. The thoracic vertebra are symmetric and well-maintained. The soft tissues of the chest wall are unremarkable. Upper abdomen: Please see dedicated report for findings in the abdomen On Site Manager (topogram) images: None CA 125 (U/mL) Date Value 12/13/2021 9 06/04/2021 8 07/12/2019 15 ASSESSMENT & PLAN: 05/25/2021-Dee Dee Carter APRN.DATABASE ADMINISTRATOR IA endometrioid type endometrial adenocarcinoma, FIGO grade 2, - LVSI, 13% depth of invasion s/p TLH/BSO 07/2019 - Polypoid vaginal tissue - Atrophic vagina with bleeding on contact - Vasomotor symptoms PLAN: Endometrial Cancer - Sending vaginal tissue to pathology for diagnostic identification. Will call patient with result next week. - If tissue is benign, RTC in 6 months. Vasomotor/Menopause symptoms - Referral to Dr. Sita Naidu [facility] - Mammogram gets this done locally, will review with PCP - Colonoscopy due, will review with PCP 05/30/2021- Dee Dee Carter APRN.DATABASE ADMINISTRATOR (distance health visit) 61 yo female with h/o Stage IA endometrioid type endometrial adenocarcinoma, FIGO grade 2 s/p surgery in 08/12/2019. LILIAN for 22 months. Now with recurrent endometrial cancer in the vagina based on tissue pathology. There was no other obvious tumor in the vagina on speculum exam last week. PLAN: - Pathology/cancer recurrence reviewed with patient - Recommend CT C/A/P for staging - CA-215 blood test - Rad/Onc referral, 06/06 - Appt with Dr. Ramos same day at Rad/Onc for pelvic exam and further treatment discussion, 06/[address] scans done prior to 06/06. Patient verbalized an understanding and agreed with the plan. She took the news as would be expected. Instructed to call if she has any questions or concerns. 06/06/2021 61 yo female with h/o Stage IA endometrioid type endometrial adenocarcinoma, FIGO grade 2 s/p surgery in 08/12/2019. Recently discovered to have vaginal recurrence (asymptomatic) Patient denies changes in appetite, bowel movements, vaginal bleeding, bladder function, abdominal pain or any abnormal changes to health overall. Today's clinic examination without evidence of residual lesion seen or felt in vagina. No distant disease on clinical exam or xrays. Significance of this situation discussed. Advise RT with curative intent Radiation Oncology has assessed her today already. Test vaginal lesion for ER/MT receptors See me September 19 for post treatment exam. 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 Will repeat imaging atthis time since completed radiation. Patient to follow up in 3 months for pelvic exam at that time. Discussed dilator use. 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 Referral placed to gastroenterology. Patient is also due for repeat colonoscopy. Palpitations: Suspect related to hyperthyroidism, advised follow up with PCP and Home Hospice Rn. Ernesto Chacko APRN.DATABASE ADMINISTRATOR 03/13/2022 Recurrent Endometrial cancer with recurrence in the vagina treated with radiation therapy. Radiation was completed in August. This is her first pelvic exam since finishing radiation. LILIAN on today's assessment She does not use her vaginal dilator and has significant narrowing of the foreshortened vagina. Plan: We discussed the importance of dilating and lengthening the vagina for her comfort and for better assessment for office exams. She was provided with a extra small + dilator with instructions on use. She says she is confident that she can begin to use as advised. See me in another 4 months for another cancer surveillance visit. 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 Importance of using dilator to keep stenosis from worsening was discussed. She has been having blood per rectum, occasional with clots for the last couple months. Painless. Last colonoscopy several years ago. This could reflect radiation proctitis or some other lesion in the lower GI tract. PLAN Referral to GI specialist where I suspect an endoscopic check of the area will be scheduled. CBC will be checked for evidence of any anemia. She still has her vaginal dilator at home and uses it infrequently. Advised to use it more frequently as discussed at last visit. Follow up in clinic in December, for continued cancer surveillance. Documentation from my notes of previous visit of 03/13/2022 was copied and pasted, documentation hasbeen reviewed and edited as necessary and is current for today. ATTESTATION: By signing my name below, I, Olya Klein, attest that this documentation has been prepared under the direction and in the presence of Henry Ramos MD. I, Henry Ramos MD, agree that the above note, as documented by my scribe, accurately describes my encounter with the patient today. Electronically signed:Blu Markham, Henry Ramos MD, Physician, August 07, 2022 4:19 PM [facility] History of Present illness Narrative* Henry Ramos MD - 03/13/2022 2:50 PM EDT Gynecologic Oncology [facility] Follow up visit Date of service: 03/13/2022 PROBLEM/CC: Isabel Waddell presents for follow-up of endometrial cancer. HPI: Ms. 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 Vaginal biopsy performed on 05/25/2021 showed tumor cellsdiffusely and strongly positive for immunohistochemical stain for PAX 8 supporting a diagnosis of endometrioid adenocarcinoma Last office visit: 11/28/2021 ONCOLOGY HISTORY: PRIOR THERAPY & DATE: 06/29/2019: D&C - Endometrioid adenocarcinoma, FIGO 2; confirmed by [facility] Pathology 08/12/2019: Robotic total hysterectomy, bilateral salpingo-oophorectomy, cystotomy/cystotomy repair and cystoscopy PATHOLOGY: 08/12/2019- Moderately differentiated adenocarcinoma, endometrioid cell type with mucinous and squamous differentiation, FIGO grade 2. Neg LVSI, 13% [place] pT1a (IA): Tumor limited to endometrium or invades less than 1/2 of the myometrium 05/25/2021 Vaginal biopsy Vagina, biopsy - Consistent with endometrioid adenocarcinoma (see comment). GZ/ka 05/28/2021 COMMENT The tumor cells are diffusely and strongly positive for immunohistochemical stain for [place] 8, supporting the above diagnosis. The patient has a history of FIGO grade 2 endometrial endometrioid adenocarcinoma in 2019. 06/04/2021 CT Chest, Abdomen, Pelvis 1. No CT evidence of metastatic disease in the chest. No measurable vaginal recurrence. No metastatic disease. GENETIC TESTIN06/2019: Normal MMR expression HISTORIES: 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, diagnosed due to prolonged amenorrhea Thyroid disease PAST SURGICAL HISTORY Procedure Laterality Date ANESTH, SECTION x3 ARTHROSCOPY KNEE DIAGNOSTIC W/WO SYNOVIAL BX SPX Left 2016 Arthroscopy, knee BREAST SURGERY HX Right 1983 breast cysts COLONOSCOPY 2003 DILATION & CURETTAGE DX&/THER NONOBSTETRIC 06/29/2019 Dilation & curettage HYSTERECTOMY HX 08/12/2019 Robotic TLH, BSO, cystotomy repair KNEE ARTHROSCOPY Right x3 LAPAROSCOPY SURG CHOLECYSTECTOMY ~age 40s Cholecystectomy, lap RECONSTRUCT FINGER Right 2019 R thumb socket REMOVE PITUITARY TUMOR W/ SCOPE 1982 SHOULDER SURGERY HX Bilateral ~2012, 2014 FAMILY HISTORY Problem Relation Age of Onset Thyroid Mother Thyroid Maternal Grandmother SOCIAL HISTORY: Social History Tobacco Use Smoking status: Never Smoker Smokeless tobacco: Never Used Vaping Use Vaping Use: Never used Substance Use Topics Alcohol use: Yes Comment: 3 drinks per month Drug use: Never Marital Status: PAST GYNECOLOGIC HISTORY: OB History T0 L3 SAB0 IAB0 Ectopic0 Multiple0 Live Births3 LMP: No LMP recorded. Patient has had a hysterectomy. HEALTH MAINTENANCE: Last pap: Last mammogram: Last colonoscopy: ALLERGIES No Known Allergies dicyclomine (BENTYL) 10 mg capsule Take 1 capsule by mouth before meals and at bedtime. As needed. carvedilol (COREG) 25 mg tablet Take 1 tablet by mouth twice daily. ascorbic acid, vitamin C, (VITAMIN C) 500 mg tablet Take 500 mg by mouth once daily. TURMERIC ORAL Take 1,000 mg by mouth once daily. venlafaxine ER (EFFEXOR XR) 150 mg 24 hr capsule Take 150 mg by mouth daily at bedtime. LPRH2-YKN-UPV-FISH OIL-L.CASEI ORAL Take by mouth once daily. Lactobac no.41/Bifidobact no.7 (PROBIOTIC-10 ORAL) Take by mouth once daily. MULTIVITAMIN TAB Take one(1) tablet daily. B COMPLEX VITAMINS CAP Take one(1) capsule daily. CALCIUM CARBONATE-VIT D3-MINERALS 600 MG-400 UNIT TAB Take 1 tablet by mouth twice daily. iv contrast (will be provided with radiology test) CT Chest ABD/PEL-Inject, intravenously, once for1 dose.No IV access, insert saline lock prior to the beginning of sedation, infusion, injection of imaging exam. Discontinue saline lock post exam. If Pt. has a central line or IVAD, may access for administration according to line specific nursing protocol. Once exam is complete flush line and de-access according to line specific nursing protocol in the CT contrast administration guidelines link. enteric contrast (will be provided with radiology test) For CT CHESTABD/PEL W IVCON Routine order Administer, As Directed One Time Only, via Oral, Rectal, both Oral and Rectal, Enteric Tube, Stoma orIndwelling Catheter, Enteric Contrast as designated per enteric contrast guidelines INTERVAL HISTORY: At last visit in Nov 2021 pelvic exam was not done in results of recent hip replacement. No vaginal bleeding. Occasional burning when urinating. No blood in urine. Bowel function is fine. Says she isn't using the dilator she was given after radiation. Very satisfied with her hip surgery in October. PHYSICAL EXAM: 03/13/2022 VITALS: BP 151/96 Pulse 85 Temp 36 C (96.8 F) Resp 16 Ht 5' 6.75 (1.695 m) Wt 146 lb 3.2oz (66.3 kg) SpO2 98% BMI 23.07 kg/m GENERAL: Looks well. She is here by herself. SKIN: Without lesions. LUNGS: Clear. HEART: Normal. ABDOMEN: Non-tender. No hernia. No mass. PELVIC: Vulva normal. Vagina foreshortened to approximately 3.5 cm depth. Adhesions not able to be broke apart using a q-tip. No evidence of cancer. Uterus and cervix absent LOWER EXTREMITIES: No swelling or edema. Fagot Heater Helper for exam: Mod RESULTS: 05/25/2021 - VAGINAL BIOPSY Vagina, biopsy - Consistent with endometrioid adenocarcinoma (see comment). GZ/ka 05/28/2021 COMMENT The tumor cells are diffusely and strongly positive for immunohistochemical stain for [place] 8, supporting the above diagnosis. The patient has a history of FIGO grade 2 endometrial endometrioid adenocarcinoma in 2019. 06/04/2021- CT ABD/PEL IMPRESSION: No measurable vaginal recurrence. No metastatic disease. RESULT: Liver: Subcentimeter low-attenuation lesion in segment III (2:27), too small to characterize, but likely benign. Biliary: No bile duct dilation. Cholecystectomy. Spleen: No mass. No splenomegaly. Pancreas: No mass or duct dilation. Adrenals: No mass. Kidneys: No mass, calculus or hydronephrosis. GI tract: No dilation or wall thickening. Lymph nodes: No abdominal or pelvic lymphadenopathy. Mesentery/Peritoneum: No ascites or mass. Retroperitoneum: No mass. Vasculature: The celiac axis and SMA are patent. The portal vein and branches, splenic vein, SMV, and hepatic veins are patent. Arterial atherosclerotic disease without aneurysm. Pelvis: No ascites or fluid collection. Hysterectomy. No measurable vaginal lesion. Smooth, nonspecific periurethral enhancement. Bones/Soft Tissues: Degenerative change. No destructive lesion. Lower thorax: A chest CT performed will be reported separately. 06/04/2021- CT CHEST IMPRESSION: 1. No CT evidence of metastatic disease in the chest. RESULT: Limitations: None. Lines, tubes, and devices: None. Lung parenchyma and airways: The central airways are patent and devoid of endobronchial lesion. There is a 10 mm x 12 mm calcified right lower lobe nodule representing a granuloma. There is a area of decreased attenuation in the left lower lobe, which may represent air trapping. No consolidation. Pleural space: No pleural effusion. No pleural thickening. Lower neck, lymph nodes, and mediastinum: The imaged thyroid gland is heterogenous with subcentimeter hypodense nodules. No lymphadenopathy in the supraclavicular, axillary, mediastinal, or hilar regions. Calcified mediastinal and right hilar lymph nodes represent remote granulomatous disease. The esophagus is nondilated. Heart, pericardium, and thoracic vessels: The thoracic aorta and main pulmonary artery are normal in caliber. The cardiac chambers are normal in size. No coronary artery atherosclerotic calcifications are noted, although the study is not optimized for coronary assessment. No pericardial effusion or thickening. Bones and soft tissues: No destructive bone lesion. Lucent lesion in the T6 vertebral body likely represents a hemangioma. The thoracic vertebra are symmetric and well-maintained. The soft tissues of the chest wall are unremarkable. Upper abdomen: Please see dedicated report for findings in the abdomen On Site Manager (topogram) images: None CA 125 (U/mL) Date Value 12/13/2021 9 06/04/2021 8 07/12/2019 15 ASSESSMENT & PLAN: 05/25/2021-Dee Dee Carter APRN.DATABASE ADMINISTRATOR IA endometrioid type endometrial adenocarcinoma, FIGO grade 2, - LVSI, 13% depth of invasion s/p TLH/BSO 07/2019 - Polypoid vaginal tissue - Atrophic vagina with bleeding on contact - Vasomotor symptoms PLAN: Endometrial Cancer - Sending vaginal tissue to pathology for diagnostic identification. Will call patient with result next week. - If tissue is benign, RTC in 6 months. Vasomotor/Menopause symptoms - Referral to Dr. Sita Naidu [facility] - Mammogram gets this done locally, will review with PCP - Colonoscopy due, will review with PCP 05/30/2021- Dee Dee Carter APRN.DATABASE ADMINISTRATOR (distance health visit) 61 yo female with h/o Stage IA endometrioid type endometrial adenocarcinoma, FIGO grade 2 s/p surgery in 08/12/2019. LILIAN for 22 months. Now with recurrent endometrial cancer in the vagina based on tissue pathology. There was no other obvious tumor in the vagina on speculum exam last week. PLAN: - Pathology/cancer recurrence reviewed with patient - Recommend CT C/A/P for staging - CA-215 blood test - Rad/Onc referral, 06/06 - Appt with Dr. Ramos same day at Rad/Onc for pelvic exam and further treatment discussion, 06/[address] scans done prior to 06/06. Patient verbalized an understanding and agreed with the plan. She took the news as would be expected. Instructed to call if she has any questions or concerns. 06/06/2021 61 yo female with h/o Stage IA endometrioid type endometrial adenocarcinoma, FIGO grade 2 s/p surgery in 08/12/2019. Recently discovered to have vaginal recurrence (asymptomatic) Patient denies changes in appetite, bowel movements, vaginal bleeding, bladder function, abdominal pain or any abnormal changes to health overall. Today's clinic examination without evidence of residual lesion seen or felt in vagina. No distant disease on clinical exam or xrays. Significance of this situation discussed. Advise RT with curative intent Radiation Oncology has assessed her today already. Test vaginal lesion for ER/MT receptors See me September 19 for post treatment exam. 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 Will repeat imaging atthis time since completed radiation. Patient to follow up in 3 months for pelvic exam at that time. Discussed dilator use. 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 Referral placed to gastroenterology. Patient is also due for repeat colonoscopy. Palpitations: Suspect related to hyperthyroidism, advised follow up with PCP and Home Hospice Rn. Ernesto Chacko APRN.DATABASE ADMINISTRATOR 03/13/2022 Recurrent Endometrial cancer with recurrence in the vagina treated with radiation therapy. Radiation was completed in August. This is her first pelvic exam since finishing radiation. LILIAN on today's assessment She does not use her vaginal dilator and has significant narrowing of the foreshortened vagina. Plan: We discussed the importance of dilating and lengthening the vagina for her comfort and for better assessment for office exams. She was provided with a extra small + dilator with instructions on use. She says she is confident that she can begin to use as advised. See me in another 4 months for another cancer surveillance visit. Documentation from my notes of previous visit of Visit date not found was copied and pasted, documentation has been reviewed and edited as necessary and is current for today. ATTESTATION: By signing my name below, I, Brittnee Prietojuly, attest that this documentation has been prepared under the direction and in the presence of Henry Ramos MD. Electronically signed:Blu Miller, March 17, 2022 12:03 AM I agree with the Chief Complaint, ROS, and Past Histories independently gathered by the clinical sales and support center agent and the remaining scribed note accurately describes my personal service to the patient. [facility] [place] [facility]* Diagnosis Dizziness- Primary Dizziness and giddiness Dehydration documented in this encounter [employer] Phone: evaluation note* Diagnosis Recurrent carcinoma of endometrium (HCC)- Primary Malignant neoplasm of corpus uteri, except isthmus Vaginal atrophy Postmenopausal atrophic vaginitis Foreshortening of vagina [facility] [place] [facility]* Diagnosis Recurrent carcinoma of endometrium (HCC)- Primary Malignant neoplasm of corpus uteri, except isthmus Radiation proctitis Other specified disorder of rectum and anus Foreshortening of vagina Endometrial cancer (HCC) Malignant neoplasm of corpus uteri, except isthmus Vaginal atrophy Postmenopausal atrophic vaginitis Rectal bleeding Hemorrhage of rectum and anus documented in this encounter [facility] [place] [facility]* Diagnosis History of thyroid disease- Primary Personal history of other endocrine, metabolic, and immunity disorders Rectal bleeding Hemorrhage of rectum and anus documented in this encounter [facility] [place] [facility]* Diagnosis Recurrent carcinoma of endometrium (HCC)- Primary Malignant neoplasm of corpus uteri, except isthmus Radiation proctitis Other specified disorder of rectum and anus Blood per rectum Hemorrhage of rectum and anus documented in this encounter [facility] [place] noteNo [employer] Other Evaluation note* Diagnosis Rectal bleeding- Primary Hemorrhage of rectum and anus documented in this encounter [facility] note* Diagnosis Radiation proctitis- Primary Other specified disorder of rectum and anus documented in this encounter [facility] note* Diagnosis Dyspnea, unspecified type- Primary documented in this encounter [facility] note* Diagnosis 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) documented in this encounter [facility] note* Diagnosis Radiation proctitis- Primary Other specified disorder of rectum and anus documented in this encounter [facility] note* Diagnosis Endometrial cancer (HCC)- Primary Malignant neoplasm of corpus uteri, except isthmus Radiation proctitis Other specified disorder of rectum and anus Radiation proctitis Other specified disorder of rectum and anus documented in this encounter [facility] note* Diagnosis Radiation proctitis- Primary Other specified disorder of rectum and anus documented in this encounter [facility] note* Diagnosis ILD (interstitial lung disease) (HCC)- Primary Postinflammatory pulmonary fibrosis Radiation proctitis Other specified disorder of rectum and anus documented in this encounter [facility] note* Diagnosis ILD (interstitial lung disease) (HCC) Postinflammatory pulmonary fibrosis Radiation proctitis Other specified disorder of rectum and anus documented in this encounter [facility] note* Diagnosis Interstitial pulmonary disease (HCC) Postinflammatory pulmonary fibrosis Radiation proctitis Other specified disorder of rectum and anus documented in this encounter [facility] note* Diagnosis Dyspnea and respiratory abnormalities- Primary Other dyspnea and respiratory abnormality Calcified nodule Localized superficial swelling, mass, or lump Iron deficiency anemia due to chronic blood loss Iron deficiency anemia secondary to blood loss (chronic) Radiation proctitis Other specified disorder of rectum and anus documented [facility] this encounter [facility] [place] [facility]* Diagnosis Dyspnea, unspecified type Radiation proctitis Other specified disorder of rectum and anus documented in this encounter [facility] note* Diagnosis Pre-op evaluation- Primary Preoperative examination, unspecified Radiation proctitis Other specified disorder of rectum and anus documented in this encounter [facility] note* Diagnosis Interstitial pulmonary disease (HCC) Postinflammatory pulmonary fibrosis documented in this encounter [facility] note* Diagnosis Radiation proctitis- Primary Other specified disorder of rectum and anus Endometrial cancer (HCC) Malignant neoplasm of corpus uteri, except isthmus documented in this encounter [facility] - Reported* Type Description Date Medical History menopause Medical History endometrial cancer hx Surgical History Bilateral Knee Scope Surgical History Bilateral Shoulder Scope Surgical History Bilateral Carpal Tunnel Surgical History x 3 Surgical History Pituatary Tumor Surgical History hysterectomy Surgical History right thumb excision of trapezi um 09/14/2020 [facility] [employer] Other [facility] general Narrative - Reported* Type Description Date Medical History menopause Medical History endometrial cancer hx Surgical History Bilateral Knee Scope Surgical History Bilateral Shoulder Scope Surgical History Bilateral Carpal Tunnel Surgical History x 3 Surgical History Pituatary Tumor Surgical History hysterectomy Surgical History right thumb excision of trapezi um 09/14/2020 Hospitalization History see surgical history [facility] [employer] Other [employer] general Narrative - Reported* Type Description Date Medical History menopause Medical History endometrial cancer hx Medical History Dilated Cardiomyopathy Surgical History Bilateral Knee Scope Surgical History Bilateral Shoulder Scope Surgical History Bilateral Carpal Tunnel Surgical History x 3 Surgical History Pituatary Tumor Surgical History hysterectomy Surgical History right thumb excision of trapezi um 09/14/2020 Hospitalization History see surgical history [facility] [employer] Other [facility] general Narrative - Reported* Type Description Date Medical History menopause Medical History endometrial cancer hx Medical History Dilated Cardiomyopathy Surgical History Bilateral Knee Scope Surgical History Bilateral Shoulder Scope Surgical History Bilateral Carpal Tunnel Surgical History x 3 Surgical History Pituatary Tumor Surgical History hysterectomy Surgical History right thumb excision of trapezi um 09/14/2020 Surgical History Sigmoidoscopy 08/2023 Hospitalization History see surgical history [facility] [employer] Other [employer] general Narrative - Reported* Type Description Date Medical History menopause Medical History endometrial cancer hx Medical History Dilated Cardiomyopathy Medical History Radiation proctitis Surgical History Bilateral Knee Scope Surgical History Bilateral Shoulder Scope Surgical History Bilateral Carpal Tunnel Surgical History x 3 Surgical History Pituatary Tumor Surgical History hysterectomy Surgical History right thumb excision of trapezi um 09/14/2020 Surgical History Sigmoidoscopy 08/2023 Hospitalization History see surgical history [facility] [employer] Other Hospital Discharge instructions* Attachments The following attachments cannot be sent through Care Everywhere. * Dehydration ([place]) * Oral Rehydration ([place]) documented in this encounter[facility] Phone: reason for referral (narrative)* Outpatient Procedure (Routine) - Closed Specialty Diagnoses / Procedures Referred By Contac t Referred To Contact [facility] [place] Diagnoses Rectal bleeding Procedures COLONOSCOPY SCREENING COLONOSCOPY FLX DX W/COLLJ SPEC WHEN Ernesto Noble APRN.CNP [address] [place] [address] [address] Referral ID Status Reason Start Date Expiration Date V isits Requested Visits Authorized [id number] Closed Auto-Generate d Referral 08/07/2022 08/07/2023 1 1 [facility] for referral (narrative)* Outpatient Procedure (Routine) - Pending Review Specialty Diagnoses / Procedures Referred By Contac t Referred To Contact [facility] DISE[facility] [place] Diagnoses Rectal bleeding Procedures COLONOSCOPY (THERAPEUTIC) COLONOSCOPY FLX ABLATION TUMOR POLYP/OTHER Juan Manuel Mendoza APRN.DATABASE ADMINISTRATOR [address] [place] [address] [place] [address] [place] [address] Referral ID Status Reason Start Date Expiration Date Visits Requested Visits Authorized [id number] Pending Review Auto-Generat ed Referral 03/05/2023 03/05/2024 1 1 [facility] for referral (narrative)* Outpatient Procedure (Routine) - Authorized Specialty Diagnoses / Procedures Referred By Contac t Referred To Contact [facility] VASCULAR [place] Diagnoses Other secondary pulmonary hypertension (HCC) Procedures ECHO ECHO TTHRC R-T 2D W/WOM-MODE COMPL SPEC&COLR D Mike Presley MD [address] [place] [address] [address] Referral ID Status Reason Start Date Expiration Date Visits Requested Visits Authorized [id number] Authorized Auto-Generat ed Referral 06/27/2023 06/26/2024 1 1 * Diagnostic Procedure Only (Routine) - Pending Review Specialty Diagnoses / Procedures Referred By Kelly alberts Referred To [facility] MOLECULAR & FUNCTIONAL IMAGING Diagnoses Other secondary pulmonary hypertension (HCC) Procedures NM LUNG VENT / PERF VQ PULMONARY VENTILATION & PERFUSION IMAGING Mike Presley MD [address], [place] [address] Molecular & Functional Imaging [address] [place] [address] Referral ID Status Reason Start Date Expiration Date Visits Requested Visits Authorized [id number] Pending Review Auto-Generat ed Referral 06/27/2023 07/26/2024 1 1 * Outpatient Procedure (Routine) - Pending Review Specialty Diagnoses / Procedures Referred By Kelly alberts Referred To [facility] RESPIRATORY [place] Diagnoses Interstitial pulmonary disease (HCC) Procedures LUNG VOLUMES Mike Presley MD [address] [place] [address] [place] [address] Referral ID Status Reason Start Date Expiration Date Visits Requested Visits Authorized [id number] Pending Review Auto-Generat ed Referral 06/27/2023 07/26/2024 1 1 * Outpatient Procedure (Routine) - Authorized Specialty Diagnoses / Procedures Referred By Kelly alberts Referred To [facility] Diagnoses Interstitial pulmonary disease (HCC) Procedures LUNG DIFFUSION CAPACITY (DLCO) DIFFUSING CAPACITY Mike Presley MD [address] [place] [address] [address] Referral ID Status Reason Start Date Expiration Date Visits Requested Visits Authorized [id number] Authorized Auto-Generat ed Referral 06/27/2023 07/26/2024 1 1 * MRI/CT (Routine) - Authorized Specialty Diagnoses / Procedures Referred By Kelly t Referred To Contact CT IMAGING Diagnoses Interstitial pulmonary disease (HCC) Procedures CT CHEST WO IVCON DIAGNOSTIC COMPUTED TOMOGRAPHY THORAX W/O CNTRST Mike Presley MD [address] [place] [address] Imaging Referral ID Status Reason Start Date Expiration Date Visits Requested Visits Authorized [id number] Authorized Auto-Generat ed Referral 06/27/2023 07/26/2024 1 1 [facility] for referral (narrative)* Outpatient Procedure (Routine) - Authorized Specialty Diagnoses / Procedures Referred By Kelly alberts Referred To [facility] Diagnoses ILD (interstitial lung disease) (HCC) Procedures SPIROMETRY BASELINE ONLY SPMTRY W/VC EXPIRATORY BERNIE W/WO MXML VOL VNTJ Mike Presley MD [address] [place] [address] [facility] [address] [place] [address] Referral ID Status Reason Start Date Expiration Date Visits Requested Visits Authorized [id number] Authorized Auto-Generat ed Referral 09/24/2024 1 1 [facility] for visit Narrative* Outpatient Procedure (Routine) - Closed Specialty Diagnoses / Procedures Referred By Kelly t Referred To Contact [facility] Diagnoses Rectal bleeding Procedures COLONOSCOPY SCREENING COLONOSCOPY FLX DX W/COLLJ SPEC WHEN PFRMD Ernesto Chacko APRN.DATABASE ADMINISTRATOR [address] [place] [address] [facility] [address] [place] [address] Referral ID Status Reason Start Date Expiration Date V isits Requested Visits Authorized [id number] Closed Auto-Generate d Referral 08/07/2022 08/07/2023 1 1 [facility] Summary Purpose Family History No Family History Records FoundNo Family History Records FoundNo Family History Records FoundNo Family History Records FoundNo Family History Records FoundNo Family History Records FoundNo Family History Records Found Advance Directives Documents on File Type Date Recorded 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 Advance Directive(s) 08/12/2019 10:47 AM Advance Directive(s) 07/28/2019 9:20 AM Documents on File Type Date Recorded 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 Advance Directive(s) 07/28/2019 9:20 AM Documents on File Type Date Recorded 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 Advance Directive(s) 07/28/2019 9:20 AM Reason for Referral Specialty Diagnoses / Procedures Referred By Contac t Referred To Contact Gastroenterology Diagnoses Rectal bleeding Procedures CONSULT TO GASTROENTEROLOGY OFFICE/OUTPATIENT [facility] 60-74 MINUTES Ernesto Chacko APRN.DATABASE ADMINISTRATOR [address] [place] [address] Referral ID Status Reason Start Date Expiration Date Visits Requested Visits Authorized [id number] Authorized PCP Requested Referral 08/07/2022 08/07/2023 1 1 Specialty Diagnoses / Procedures Referred By Contac t Referred To Contact [facility] Diagnoses Rectal bleeding Procedures COLONOSCOPY SCREENING COLONOSCOPY FLX DX W/COLLJ SPEC WHEN PFRMD Ernesto Chacko APRN.DATABASE ADMINISTRATOR [address] [place] [id number] [facility] [address] [place], [place] [id number] Referral ID Status Reason Start Date Expiration Date Visits Requested Visits Authorized [id number] Pending Review Auto-Generat ed Referral 08/07/2022 08/07/2023 1 1 Specialty Diagnoses / Procedures Referred By Contac t Referred To Contact CT IMAGING Diagnoses Interstitial pulmonary disease (HCC) Procedures CT CHEST WO IVCON DIAGNOSTIC COMPUTED TOMOGRAPHY THORAX W/O CNTRST Mike Presley MD [address] [place] [address] Ct Imaging [place] [address] Referral ID Status Reason Start Date Expiration Date V isits Requested Visits Authorized [id number] Closed Auto-Generate d Referral 06/27/2023 07/26/2024 1 1 Reason Iron deficiency anem ia Diagnosis 1 Iron deficiency anem ia due to chronic blood loss (D50.0) Referral Organization [facility] Keira hahn Referring Provider First Name Roland Referring Provider Last Name Maggie Referring Provider Specialty Internal Me dicine Referred Organization [facility] Referred Provider NGA TATUM Referred Address [address] [place], [place],[address] Referred Provider Specialty Hematology Referral Priority Routine General Notes Mrs. Waddell is being r eferred for symptomatic iron deficiency anemia. 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 She has completed endoscopic treatment for her chronic bleeding and has received 2 units of PRBC while at [facility] for her procedure. I am referring Mrs. Waddell for IV Fe therapy Clinical Notes Include latest CBC, Fe, TIBC, Ferritin, percent iron saturation Medications Administered Section Inactive Administered Medications - up to 3 most recent administrations Medication Order MAR Action Action Date Dose Rate Site meperidine (PF) injection (DEMEROL) X (OR/PROCEDURE) PRN, Starting on Junie 09/26/22 at 1140, Until Junie 09/26/22 at 1140, Intraprocedure Given 09/26/2022 11:40 AM EST 50 mg meperidine (PF) injection (DEMEROL) X (OR/PROCEDURE) PRN, Starting on Junie 09/26/22 at 1144, Until Junie 09/26/22 at 1148, Intraprocedure Given 09/26/2022 11:48 AM EST 25 mg Given 09/26/2022 11:44 AM EST 25 mg midazolam (PF) injection (VERSED) INTRAVENOUS, X (OR/PROCEDURE) PRN, Starting on Junie 09/26/22 at 1140, Until Junie 09/26/22 at 1150, Intraprocedure Given 09/26/2022 11:50 AM EST 1 mg Given 09/26/2022 11:40 AM EST 3 mg Additional Source Comments INFORMATION SOURCE (unrecogn ized section and content) DATE CREATED AUTHOR 11/29/2019 [facility] DATE CREATED AUTHOR AUTHOR'S ORGANIZ ATION 11/23/2021 Nancy blanchard DATE CREATED AUTHOR AUTHOR'S ORGANIZ ATION 03/20/2022 [facility] DATE CREATED AUTHOR AUTHOR'S ORGANIZ ATION 03/28/2023 [facility] DATE CREATED AUTHOR AUTHOR'S ORGANIZ ATION 08/25/2023 [facility] DATE CREATED AUTHOR AUTHOR'S ORGANIZ ATION 10/04/2023 [facility] DATE CREATED AUTHOR AUTHOR'S ORGANIZ ATION 10/09/2023 [facility] Reason for Visit (unrecogniz ed section and content) repeat labs Reason Comments Dizziness Pt c/o shortness of breath, dehydrated, weakness and dizziness. Pt has hx cancer and is having radiation treatments. Denies any pain Dehydration Shortness of Breath Reason Comments Follow Up Reason Comments follwo up Reason Comments Education Of Patient/family LM for 09/26 appt Reason Comments Returning Patient's Call Reason Comments Rectal Bleeding Post Radiation Specialty Diagnoses / Procedures Referred By Kelly t Referred To Contact Gastroenterology Diagnoses Rectal bleeding Procedures CONSULT TO GASTROENTEROLOGY OFFICE/OUTPATIENT NEW HIGH MDM 60-74 MINUTES Ernesto Chacko APRN.DATABASE ADMINISTRATOR [address] [place] [address] Referral ID Status Reason Start Date Expiration Date V isits Requested Visits Authorized [id number] Closed PCP Requested Referral 08/07/2022 08/07/2023 1 1 Reason Comments Spirometry Specialty Diagnoses / Procedures Referred By Kelly alberts Referred To Contact [facility] Diagnoses Dyspnea, unspecified type Procedures SPIROMETRY WITH DILATOR IF OBSTRUCTED BRNCDILAT RSPSE SPMTRY PRE&POST-BRNCDILAT ADMN Pedro Rodarte MD [address] [place] [address] [facility] [address] [place] [address] Referral ID Status Reason Start Date Expiration Date V isits Requested Visits Authorized [id number] Closed Auto-Generate d Referral 05/23/2023 06/21/2024 1 1 Reason Comments New Reason Comments New Radiation proctitis Specialty Diagnoses / Procedures Referred By Kelly t Referred To Contact Colon and Rectal Surgery Diagnoses Radiation proctitis Procedures CONSULT TO COLO-RECTAL SURGERY OFFICE/OUTPATIENT NEW HIGH MDM 60-74 MINUTES Gurpreet Villarreal, ELEMENTARY SCHOOL REGISTRAR.DATABASE ADMINISTRATOR [address] [place] [address] [place] DO [address] [place] [address] Referral ID Status Reason Start Date Expiration Date V isits Requested Visits Authorized [id number] Closed PCP Requested Referral 05/16/2023 05/15/2024 1 1 Reason Comments Patient Update Specialty Diagnoses / Procedures Referred By Contac t Referred To Contact [facility] Diagnoses ILD (interstitial lung disease) (HCC) Procedures SPIROMETRY BASELINE ONLY SPMTRY W/VC EXPIRATORY BERNIE W/WO MXML VOL VNTJ Mike Presley MD [address] [place] [address] [place] [address] Referral ID Status Reason Start Date Expiration Date V isits Requested Visits Authorized [id number] Closed Auto-Generate d Referral 08/26/2023 09/24/2024 1 1 Specialty Diagnoses / Procedures Referred By Contac t Referred To Contact [facility] Diagnoses Interstitial pulmonary disease (HCC) Procedures LUNG DIFFUSION CAPACITY (DLCO) DIFFUSING CAPACITY Mike Presley MD [address] [place] [address] [place] [address] Referral ID Status Reason Start Date Expiration Date V isits Requested Visits Authorized [id number] Closed Auto-Generate d Referral 06/27/2023 07/26/2024 1 1 Reason Comments Radio Gen A21 Reason Comments Pre-Op Exam Specialty Diagnoses / Procedures Referred By Contac t Referred To Contact CT IMAGING Diagnoses Interstitial pulmonary disease (HCC) Procedures CT CHEST WO IVCON DIAGNOSTIC COMPUTED TOMOGRAPHY THORAX W/O CNTRST Mike Presley MD [address] [place] [address] [id number] Referral ID Status Reason Start Date Expiration Date V isits Requested Visits Authorized [id number] Closed Auto-Generate d Referral 06/27/2023 07/26/2024 1 1 Scheduled Active and Recently Administ ered Medications (unrecognized section and content) Medication Order 07/05/2021 07/06/2021 07/07/2021 0.9 % sodium chloride bolus (COMPLETED) 1,000 mL (14.7 mL/kg), Intravenous, at 1,000 mL/hr, Administer over 1 Hours, ONCE, On 07/07/21 at 1345, For 1 dose, For IV Hydration 1346 (New Bag - Prov ider: Kandi Montiel RN)1446 (Stopped - Provider: Kandi Montiel RN) meclizine (ANTIVERT) tablet 25 mg (COMPLETED) 25 mg, Oral, ONCE, On 07/07/21 at 1530, For 1 dose 1530 (Given - Provid er: Kandi Montiel RN) Source Comments (unrecognize d section and content) In the event this informatio n is protected by the Federal Confidentiality of Alcohol and Drug Abuse Patient Records regulations: The Federal rules restrict any use of the information to criminally investigate or prosecute any alcohol or drug abuse patient.[facility] the event this information is protected by the Federal Confidentiality of Alcohol and Drug Abuse Patient Records regulations: The Federal rules restrict any use of the information to criminally investigate or prosecute any alcohol or drug abuse patient.[facility] the event this information is protected by the Federal Confidentiality of Alcohol and Drug Abuse Patient Records regulations: The Federal rules restrict any use of the information to criminally investigate or prosecute any alcohol or drug abuse patient.[facility] the event this information is protected by the Federal Confidentiality of Alcohol and Drug Abuse Patient Records regulations: The Federal rules restrict any use of the information to criminally investigate or prosecute any alcohol or drug abuse patient.[facility] the event this information is protected by the Federal Confidentiality of Alcohol and Drug Abuse Patient Records regulations: The Federal rules restrict any use of the information to criminally investigate or prosecute any alcohol or drug abuse patient.[facility] the event this information is protected by the Federal Confidentiality of Alcohol and Drug Abuse Patient Records regulations: The Federal rules restrict any use of the information to criminally investigate or prosecute any alcohol or drug abuse patient.[facility] the event this information is protected by the Federal Confidentiality of Alcohol and Drug Abuse Patient Records regulations: The Federal rules restrict any use of the information to criminally investigate or prosecute any alcohol or drug abuse patient.[facility] the event this information is protected by the Federal Confidentiality of Alcohol and Drug Abuse Patient Records regulations: The Federal rules restrict any use of the information to criminally investigate or prosecute any alcohol or drug abuse patient.[facility] the event this information is protected by the Federal Confidentiality of Alcohol and Drug Abuse Patient Records regulations: The Federal rules restrict any use of the information to criminally investigate or prosecute any alcohol or drug abuse patient.[facility] the event this information is protected by the Federal Confidentiality of Alcohol and Drug Abuse Patient Records regulations: The Federal rules restrict any use of the information to criminally investigate or prosecute any alcohol or drug abuse patient.[facility] the event this information is protected by the Federal Confidentiality of Alcohol and Drug Abuse Patient Records regulations: The Federal rules restrict any use of the information to criminally investigate or prosecute any alcohol or drug abuse patient.[facility] the event this information is protected by the Federal Confidentiality of Alcohol and Drug Abuse Patient Records regulations: The Federal rules restrict any use of the information to criminally investigate or prosecute any alcohol or drug abuse patient.[facility] the event this information is protected by the Federal Confidentiality of Alcohol and Drug Abuse Patient Records regulations: The Federal rules restrict any use of the information to criminally investigate or prosecute any alcohol or drug abuse patient.[facility] the event this information is protected by the Federal Confidentiality of Alcohol and Drug Abuse Patient Records regulations: The Federal rules restrict any use of the information to criminally investigate or prosecute any alcohol or drug abuse patient.[facility] the event this information is protected by the Federal Confidentiality of Alcohol and Drug Abuse Patient Records regulations: The Federal rules restrict any use of the information to criminally investigate or prosecute any alcohol or drug abuse patient.[facility] the event this information is protected by the Federal Confidentiality of Alcohol and Drug Abuse Patient Records regulations: The Federal rules restrict any use of the information to criminally investigate or prosecute any alcohol or drug abuse patient.[facility] the event this information is protected by the Federal Confidentiality of Alcohol and Drug Abuse Patient Records regulations: The Federal rules restrict any use of the information to criminally investigate or prosecute any alcohol or drug abuse patient.[facility] the event this information is protected by the Federal Confidentiality of Alcohol and Drug Abuse Patient Records regulations: The Federal rules restrict any use of the information to criminally investigate or prosecute any alcohol or drug abuse patient.[facility] the event this information is protected by the Federal Confidentiality of Alcohol and Drug Abuse Patient Records regulations: The Federal rules restrict any use of the information to criminally investigate or prosecute any alcohol or drug abuse patient.[facility] the event this information is protected by the Federal Confidentiality of Alcohol and Drug Abuse Patient Records regulations: The Federal rules restrict any use of the information to criminally investigate or prosecute any alcohol or drug abuse patient.[facility] the event this information is protected by the Federal Confidentiality of Alcohol and Drug Abuse Patient Records regulations: The Federal rules restrict any use of the information to criminally investigate or prosecute any alcohol or drug abuse patient.[facility] the event this information is protected by the Federal Confidentiality of Alcohol and Drug Abuse Patient Records regulations: The Federal rules restrict any use of the information to criminally investigate or prosecute any alcohol or drug abuse patient.[facility] the event this information is protected by the Federal Confidentiality of Alcohol and Drug Abuse Patient Records regulations: The Federal rules restrict any use of the information to criminally investigate or prosecute any alcohol or drug abuse patient.[facility] the event this information is protected by the Federal Confidentiality of Alcohol and Drug Abuse Patient Records regulations: The Federal rules restrict any use of the information to criminally investigate or prosecute any alcohol or drug abuse patient.[facility] Care Teams (unrecognized sec tion and content) Logistics System Engineer Relationship Specialty Start Date End Date Roland Serrano DO PCP - General 09/21/07 Kizzy Galloway RN Specialty Director Of Strategic Partnerships Radiation Oncology 06/12/21 Logistics System Engineer Relationship Specialty Start Date End Date Roland Serrano DO PCP - General 09/21/07 [place] [address] [place] [address] Specialty Director Of Strategic Partnerships Radiation Oncology 06/12/21 Logistics System Engineer Relationship Specialty Start Date End Date Roland Serrano DO [facility] General 09/21/07 Kizzy G[place]ay RN [id number] [place] [address] Specialty Director Of Strategic Partnerships Radiation Oncology 06/12/21 Logistics System Engineer Relationship Specialty Start Date End Date Roland Serrano DO PCP - General 09/21/07 Kizzy Galloway RN [id number] [place] [address] Specialty Director Of Strategic Partnerships Radiation Oncology 06/12/21 Logistics System Engineer Relationship Specialty Start Date End Date Roland Serrano DO PCP - General 09/21/07 Kizzy Galloway RN [address] [place] [address] Specialty Director Of Strategic Partnerships Radiation Oncology 06/12/21 Logistics System Engineer Relationship Specialty Start Date End Date Roland Serrano DO PCP - General 09/21/07 Kizzy Galloway RN [address] [place] [address] Specialty Director Of Strategic Partnerships Radiation Oncology 06/12/21 Logistics System Engineer Relationship Specialty Start Date End Date Roland Serrano DO PCP - General 09/21/07 Kizzy Galloway RN [address] [place] [address]356 Specialty Director Of Strategic Partnerships Radiation Oncology 06/12/21 Logistics System Engineer Relationship Specialty Start Date End Date Roland Serrano DO [facility] - General 09/21/07 Kizzy Galloway RN [id number] [place] [address] Specialty Director Of Strategic Partnerships Radiation Oncology 06/12/21 Logistics System Engineer Relationship Specialty Start Date End Date Roland eSrrano DO PCP - General 09/21/07 [place] [address] [place] [address] Specialty Director Of Strategic Partnerships Radiation Oncology 06/12/21 Logistics System Engineer Relationship Specialty Start Date End Date Roland Serrano DO PCP - General 09/21/07 Kizzy Galloway RN [address] [place] [address]18 Specialty Director Of Strategic Partnerships Radiation Oncology 06/12/21 Logistics System Engineer Relationship Specialty Start Date End Date Roland Serrano DO PCP - General 09/21/07 Kizzy Galloway RN [address] [place] [address]329 Specialty Director Of Strategic Partnerships Radiation Oncology 06/12/21 Logistics System Engineer Relationship Specialty Start Date End Date Roland Serrano DO PCP - General 09/21/07 Kizzy Galloway RN [address] [place] [address] Specialty Director Of Strategic Partnerships Radiation Oncology 06/12/21 Logistics System Engineer Relationship Specialty Start Date End Date Roland Serrano DO PCP - General 09/21/07 Kizzy Galloway RN [address] [place] [address] Specialty Director Of Strategic Partnerships Radiation Oncology 06/12/21 Logistics System Engineer Relationship Specialty Start Date End Date Roland Serrano DO PCP - General 09/21/07 Kizzy Galloway RN [address] [place] [address] Specialty Director Of Strategic Partnerships Radiation Oncology 06/12/21 Logistics System Engineer Relationship Specialty Start Date End Date Roland Serrano DO [facility] - General 09/21/07 Kizzy Galloway RN [id number] [place] [address] Specialty Director Of Strategic Partnerships Radiation Oncology 06/12/21 Logistics System Engineer Relationship Specialty Start Date End Date Roland Serrano DO [facility] 09/21/07 Kizzy Galloway RN [id number] [place] [address] Specialty Director Of Strategic Partnerships Radiation Oncology 06/12/21 Logistics System Engineer Relationship Specialty Start Date End Date Roland Serrano DO [facility] 09/21/07 Kizzy Galloway RN [address] [place] [address]84 Specialty Director Of Strategic Partnerships Radiation Oncology 06/12/21 Logistics System Engineer Relationship Specialty Start Date End Date Roland Serrano DO [facility] 09/21/07 Kizzy Galloway RN [phone] [place] [address] Specialty Director Of Strategic Partnerships Radiation Oncology 06/12/21 Logistics System Engineer Relationship Specialty Start Date End Date Roland Serrano DO [facility] 09/21/07 Kizzy Galloway RN [id number] [place] [address]686 Specialty Director Of Strategic Partnerships Radiation Oncology 06/12/21 FOR RECORDS PERTAINING TO PATIENTS WHO ARE OR HAVE BEEN ENROLLED IN A CHEMICAL DEPENDENCY/SUBSTANCEABUSE PROGRAM, SOME INFORMATION MAY BE OMITTED. This clinical summary was aggregated from multiple sources. Caution should be exercised in using it in the provision of clinical care. This summary normalizes information from multiple sources, and as a consequence, information in this document may materially change the coding, format and clinical context of patient data. In addition, data may be omitted in some cases. CLINICAL DECISIONS SHOULD BE BASED ON THE PRIMARY CLINICAL RECORDS. [facility] [employer] [facility]. provides no warranty or guarantee of the accuracy or completeness of information in this document.
[2023-12-16 16:08] LABS: Anion Gap 10.2; BUN Creatinine Ratio 24.2; Calcium 8.9 mg/dL (8.5-10.1); Carbon Dioxide 30.6 mmol/L (21.0-32.0); Chloride 106 mmol/L (98-107); Estimated GFR (African America >60 (>=60); Estimated GFR (Non-African Ame >60 (>=60); Glucose 106 mg/dL (74-106); Potassium 3.8 mmol/L (3.5-5.1); Sodium 143 mmol/L (136-145); Thyroid Stimulating Hormone <0.007 uIU/mL (0.358-3.740)
[2023-12-16 16:53] LABS: Free T4 1.88 ng/dL (0.76-1.46)
[2023-12-18 09:10] LABS: Triiodothyronine (T3) 251 ng/dL (71-180)
== END 2023-12-16 10:33 | disposition home or self-care (01) ==
LOC: LAB 10:32
PROVIDERS: PCP Internal Medicine; Visit Provider Internal Medicine
DX: R79.89 Other specified abnormal findings of blood chemistry (principal)
CPT/HCPCS: 36415; 80048; 84439; 84443; 84480

== ENCOUNTER 2023-12-16 15:26 | Outpatient (OUT) | payer BC, SELFPAY ==
--- OUTSIDE RECORDS SUMMARY | 2023-12-16 14:46 | XMS_ITS | CCD ---
Author Name Unknown Address [address] [place] [address] Organization [facility] Care Team Providers Care News Assistant Name Role Phone Roland Serrano DO Primary Care Provider [phone] ROLAND SERRANO Primary Care Unavailable MAYRA MICHEL Attending Unavailable ROLAND SERRANO Primary Care Unavailable ROBBY CANALES Attending Unavailable Roland Serrano DO Primary Care Provider Nilesh RN, Kizzy Unavailable Unavailable Roland Serrano DO Primary Care Provider Nilesh RN, Kizzy Unavailable Roland Serrano DO Primary Care Provider Nilesh RN, Kizzy Unavailable Roland Serrano Unavailable Oyla Gann Unavailable MAGGIE, DR YOUSSEF Primary Care [...] ROLAND E Primary Care Unavailable CARY, SOUTH Philipep Attending Unavailable BALL, ROLAND E Primary Care [...] physicia Propensity to adverse reactions 8 Comment:Done [facility] Other (6 sources) Allergies Reconciled Propensity to adverse reactions Unknown [facility] Other Medications Current Medications Medication Drug Class(es) Dates Sig (Normalized) Sig (Original) acetaminophen 325 mg / HYDROcodone bitartrate 5 mg oral tablet (8 sources) Opioid Agonist take 1-2 tablets by mouth every six hours as needed HYDROcodone-Aceta minophen 5-325 MG 1-2 tablet as needed Oral every 6 hrs for 7 days Active [id number] 200 actuat albuterol 0.09 mg/actuat metered dose [...] one(1) tablet d aily. Take by mouth. VRWZ2-FRA-ZRX-FISH OIL-L.CASEI ORAL (20 sources) ARUC9-CVN-VWI-FI SH OIL-L.CASEI ORAL Take by mouth once daily. 0 Active Comment on above: Take by mouth once d aily. polyethylene glycol 3350 [id number] mg / potassium chloride 2970 mg / sodium bicarbonate 6740 mg / sodium chloride 5860 mg / sodium sulfate 25756 mg powder for oral solution (1 source) [...] CNOV Office Visit (CORSMN ) CKISABEL L ([id number]) 1960 F Date Time Provider Department 09/29/23 [...] mg by mouth daily at bedtime. - ZDEW1-CGC-KXB-FISH OIL-L.CASEI ORAL Take by mouth once daily. [...] [D64.89] 09/02 (more content not included)... Normal [facility] ANES POSTPROC EVALon 023 ANES POSTPROC EVAL HNO ID: [id number] Author: Kobe Garcia MD Service: ? Author Type: Anesthesiologist Type: Anesthesia Postprocedure Evaluation Filed: 09/02/2023 10:38 AM Note Text: POST ANESTHESIA EVALUATION NOTE : 1960 Procedure Summary Date: 09/02/23 Room / Location: [place] [address] [facility] Anesthesia Start: 745 Anesthesia [...] September 02, 2023 TIME: 10:37 AM CSN: [id number] Normal [facility] ANES PRE-OPon 09-02-2023 ANES PRE-OP HNO ID: [id number] Author: Kobe Garcia MD Service: ? Author [...] and consent discussed: yes. Patient / Responsible Libertarian agrees to proceed: yes Patient / Surrogate [...] 1,000 mg by mouth once daily. - MQAG4-VJY-EUC-FISH OIL-L.CASEI ORAL Take by mouth once daily. [...] on 06/27/2023 (more content not included)... Normal [facility] ANES PREOPon 09-02-2023 ANES PREOP HNO ID: [id number] Author: Kobe Garcia MD Service: Anesthesiology Author Type: Anesthesiologist Type: Anesthesia PreOp Filed: 09/02/2023 7:05 AM Note Text: Healthy except for FAP. Appropriately NPO, denies reflux, no history of anesthesia problems. Reviewed in fathers presence. MP1, no airway concerns, ASA2, Plan for GA with LMA. Has braces, tight , no loose teeth. Normal [facility] BRIEF OP NOTon 09-02-2023 BRIEF OP NOT HNO ID: [id number] Author: Milagro Sanchez MD Service: Colorectal Author Type: Physician Type: Brief Op Note Filed: 09/02/2023 8:57 AM Note Text: BRIEF OPERATIVE NOTE - COLORECTAL SURGERY Log ID: [id number] Surgery/Procedure Date: 09/02/2023 Incision/Procedure Start Time: 8:01 AM Incision Close/Procedure End Time: 8:51 AM Surgeon(s) and Spike Maker(s): Surgeon(s) and Role: * South Saba DO [...] DATE: September 02, 2023 TIME: 8:56 AM [facility] 09[facility]2023 [facility] HNO ID: [id number] Author: Ricardo White PA-C Service: Colorectal Author Type: Physician Spike Maker Type: Discharge Summary Filed: 09/02/2023 2:06 PM Note Text: Attestation signed by South Saba DO at 09/02/2023 4:24 PM South Saba DO, FACS, [facility] Colorectal Surgery DISCHARGE SUMMARY PATIENT NAME: [...] [facility] [address] call [address] Saba's office at [phone] to make an appointment. Transitions of Care [...] capsule Commonly (more content not included)... Normal [facility] Hematocrit Auto (Bld) [Volum e fraction]on 09-02-2023 Hematocrit (Bld) [Volume fraction] 27.4 % Low 36.0-46.0 [facility] Comment on above: Order Comment: Speci men Type: BLOOD SPECIMEN Ordering Facility: [facility] Address: [address] [place] [address] Performed By: #### 5 0190-8, 2276-02 #### [facility] CLIA [id number] [address] [place], [place] [address] [address] [place] Hgb Bld-mCncon 09-02-2023 Hemoglobin (Bld) [Mass/Vol] 7.5 g/dL Low 11.5-15.5 [facility] Comment on above: Order Comment: Speci men Type: BLOOD SPECIMEN Ordering Facility: [facility] Address: [address] [place], [place] [address] Performed By: #### 5 0190-8, 2275- #### [facility] CLIA [id number] [facility] [address] [address] [place] OPERATIVE NOon 09-02-2023 OPERATIVE NO HNO ID: [id number] Author: South Saba DO Service: Colorectal Author Type: Physician Type: Operative Report Filed: 09/10/2023 7:14 AM Note Text: OPERATIVE REPORT PATIENT NAME: Isabel Waddell LOG ID: [id number] SURGERY DATE: 09/02/2023 INCISION/PROCEDURE START TIME: 8:01 AM INCISION CLOSE/PROCEDURE END TIME: 8:51 AM PREOPERATIVE DIAGNOSIS: Radiation proctitis, anemia, history of endometrial adenocarcinoma POSTOPERATIVE DIAGNOSIS: Radiation proctitis, anemia, history of endometrial adenocarcinoma OPERATION PERFORMED: Flexible sigmoidoscopy, exam under anesthesia, topical application of formalin to the rectum for treatment of radiation proctitis SURGEON: South Saba DO LUMBER HANDLER: Milagro Sanchez MD. no qualified residents or [...] Saba, DO, FACS, FASCRS Colorectal Surgery Normal [facility] TYPE + SCREENon 09-02-2023 ABO O Normal [facility] Comment on above: Order Comment: Speci men Type: BLOOD SPECIMEN [facility] Facility[facility] Address: [address] [place] [address] Performed By: #### 5 0190-8, 2276-4 #### [facility] CLIA [id number] [address] [place] [address] [place] HISTORICAL AB SCR STATUS Negative Normal [facility] Comment on above: Order Comment: Speci men Type: BLOOD SPECIMEN [facility] Facility: [facility] Address: [address] [place] [address] Performed By: #### 5 0190-8, 2276-4 #### [facility] CLIA [id number] [address] [place] [address] [place] Rh Nom (Bld) Positive Normal [facility] Comment on above: Order Comment: Speci men Type: BLOOD SPECIMEN [facility] Address: [address] [place] [address] Performed By: #### 5 0190-8, 2276-4 #### [facility] CLIA [id number] [address] [place] [address] [place] TYPE AND SCREEN EXPIRATION 09/05/2023 23:59 Normal [facility] Comment on above: Order Comment: Speci men Type: BLOOD SPECIMEN [facility] Address: [address] [place] [address] Performed By: #### 5 0190-8, 2276-4 #### [facility] CLIA [id number] [address] [place] [address] [place] CBC W Auto Differential pane l (Bld)on 08-29-2023 Basophils (Bld) [#/Vol] 10*3/uL Normal <0.11 [facility] Comment on above: Order Comment: Speci men Type: BLOOD SPECIMENOrdering Facility: [facility] Address: [address] [place] [address] Performed By: #### 5 7021-8 ####[facility] [id number] [place] [address] [place] Basophils/100 WBC (Bld) 0.7 % Normal [facility] Comment on above: Order Comment: Speci men Type: BLOOD SPECIMENOrdering Facility: [facility] Address: [address] [place] [address] Performed By: #### 5 7021-8 ####[facility] [id number] [place] [address] [place] Differential cell count method Nom (Bld) Auto Normal [facility] Comment on above: Order Comment: Speci men Type: BLOOD SPECIMENOrdering Facility: [facility] Address: [address] [place] [address] Performed By: #### 5 7021-8 ####[facility] [id number] [place] [address] [place] Eosinophils (Bld) [#/Vol] 0.18 10*3/uL Normal <0.46 [facility] Comment on above: Order Comment: Speci men Type: BLOOD SPECIMENOrdering Facility: [facility] Address: [address] [place] [address] Performed By: #### 5 7021-8 ####[facility] [id number] [place] [address] [place] Eosinophils/100 WBC (Bld) 5.9 % Normal [facility] Comment on above: Order Comment: Speci men Type: BLOOD SPECIMENOrdering Facility: [facility] Address: [address] [place] [address] Performed By: #### 5 7021-8 ####[facility] [id number] [place] [address] [place] Erythrocyte distribution width (RBC) [Ratio] 22.0 % High 11.5-15.0 [facility] Comment on above: Order Comment: Speci men Type: BLOOD SPECIMENOrdering Facility: [facility] Address: [address] [place] [address] Performed By: #### 5 7021-8 ####[facility] [id number] [place] [address] [place] Hematocrit (Bld) [Volume fraction] 26.0 % Low 36.0-46.0 [facility] Comment on above: Order Comment: Speci men Type: BLOOD SPECIMENOrdering Facility: [facility] Address: [address] [place] [address] Performed By: #### 5 7021-8 ####[facility] [id number] [place] [address] [place] Hemoglobin (Bld) [Mass/Vol] 7.0 g/dL Low 11.5-15.5 [facility] Comment on above: Order Comment: Speci men Type: BLOOD SPECIMENOrdering Facility: [facility] Address: [address] [place] [address] Performed By: #### 5 7021-8 ####[facility] [id number] [place] [address] [place] Immature granulocytes (Bld) [#/Vol] 10*3/uL Normal <0.10 [facility] Comment on above: Order Comment: Speci men Type: BLOOD SPECIMENOrdering Facility: [facility] Address: [address] [place] [address] Performed By: #### 5 7021-8 ####[facility] [id number] [place] [address] [place] Immature granulocytes/100 WBC (Bld) 0.0 % Normal [facility] Comment on above: Order Comment: Speci men Type: BLOOD SPECIMENOrdering Facility: [facility] Address: [address] [place] [address] Performed By: #### 5 7021-8 ####[facility] [id number] [place] [address] [place] Lymphocytes (Bld) [#/Vol] 1.20 10*3/uL Normal 1.00-4.00 [facility] Comment on above: Order Comment: Speci men Type: BLOOD SPECIMENOrdering Facility: [facility] Address: [address] [place] [address] Performed By: #### 5 7021-8 ####[facility] [id number] [place] [address] [place] Lymphocytes/100 WBC (Bld) 39.1 % Normal [facility] Comment on above: Order Comment: Speci men Type: BLOOD SPECIMENOrdering Facility: [facility] Address: [address] [place] [address] Performed By: #### 5 7021-8 ####[facility] [id number] [place] [address] [place] MCH (RBC) [Entitic mass] 17.9 pg Low 26.0-34.0 [facility] Comment on above: Order Comment: Speci men Type: BLOOD SPECIMENOrdering Facility: [facility] Address: [address] [place] [address] Performed By: #### 5 7021-8 ####[facility] [id number] [place] [address] [place] MCHC (RBC) [Mass/Vol] 26.9 g/dL Low 30.5-36.0 [facility] Comment on above: Order Comment: Speci men Type: BLOOD SPECIMENOrdering Facility: [facility] Address: [address] [place] [address] Performed By: #### 5 7021-8 ####[facility] [id number] [place] [address] [place] MCV (RBC) [Entitic vol] 66.3 fL Low 80.0-100.0 [facility] Comment on above: Order Comment: Speci men Type: BLOOD SPECIMENOrdering Facility: [facility] Address: [address] [place] [address] Performed By: #### 5 7021-8 ####[facility] [id number] [place] [address] [place] Monocytes (Bld) [#/Vol] 0.40 10*3/uL Normal <0.87 [facility] Comment on above: Order Comment: Speci men Type: BLOOD SPECIMENOrdering Facility: [facility] Address: [address] [place] [address] Performed By: #### 5 7021-8 ####[facility] [id number] [place] [address] [place] Monocytes/100 WBC (Bld) 13.0 % Normal [facility] Comment on above: Order Comment: Speci men Type: BLOOD SPECIMENOrdering Facility: [facility] Address: [address] [place] [address] Performed By: #### 5 7021-8 ####[facility] [id number] [place] [address] [place] Neutrophils (Bld) [#/Vol] 1.27 10*3/uL Low 1.45-7.50 [facility] Comment on above: Order Comment: Speci men Type: BLOOD SPECIMENOrdering Facility: [facility] Address: [address] [place] [address] Performed By: #### 5 7021-8 ####[facility] [id number] [place] [address] [place] Neutrophils/100 WBC (Bld) 41.3 % Normal [facility] Comment on above: Order Comment: Speci men Type: BLOOD SPECIMENOrdering Facility: [facility] Address: [address] [place] [address] Performed By: #### 5 7021-8 ####[facility] [id number] [place] [address] [place] Nucleated RBC (Bld) [#/Vol] 10*3/uL Normal <0.01 [facility] Comment on above: Order Comment: Speci men Type: BLOOD SPECIMENOrdering Facility: [facility] Address: [address] [place] [address] Performed By: #### 5 7021-8 ####[facility] [id number] [place] [address] [place] Nucleated RBC/100 WBC (Bld) [Ratio] 0.0 /100 WBC Normal [facility] Comment on above: Order Comment: Speci men Type: BLOOD SPECIMENOrdering Facility: [facility] Address: [address] [place] [address] Performed By: #### 5 7021-8 ####[facility] [id number] [place] [address] [place] Platelet mean volume (Bld) [Entitic vol] 9.6 fL Normal 9.0-12.7 [facility] Comment on above: Order Comment: Speci men Type: BLOOD SPECIMENOrdering Facility: [facility] Address: [address] [place] [address] Performed By: #### 5 7021-8 ####[facility] [id number] [place] [address] [place] Platelets (Bld) [#/Vol] 266 10*3/uL Normal 150-400 [facility] Comment on above: Order Comment: Speci men Type: BLOOD SPECIMENOrdering Facility: [facility] Address: [address] [place] [address] Performed By: #### 5 7021-8 ####[facility] [id number] [place] [address] [place] RBC (Bld) [#/Vol] 3.92 10*6/uL Normal 3.90-5.20 [facility] Comment on above: Order Comment: Speci men Type: BLOOD SPECIMENOrdering Facility: [facility] Address: [address] [place] [address] Performed By: #### 5 7021-8 ####[facility] [id number] [place] [address] [place] WBC (Bld) [#/Vol] 3.07 10*3/uL Low 3.70-11.00 [facility] Comment on above: Order Comment: Speci men Type: BLOOD SPECIMENOrdering Facility: [facility] Address: [address] [place] [address] Performed By: #### 5 7021-8 ####[facility] [id number] [address] [place] CNOVon 08-29-2023 CNOV Office Visit (HOMERO ) ISABEL WADDELL ([id number]) 1960 F Date Time Provider Department 08/29/23 11:00 AM ELDER GALAN During your visit today, we recorded the following information about you: Temperature Pulse Blood pressure Weight 98 degrees 82/minute 163/78 66.7 kg Height 1.676 m Elder Galan APRN.PALLIATIVE CARE PHYSICIAN 08/31/2023 9:11 PM Signed COLON AND RECTAL [...] team about CBC once drawn. Elder Galan, HEALTH PHYSICIST.[facility] Pelvic Floor Colorectal Surgery Risk of morbidity, mortality and/or complications of treatment plan: high Referring Provider: SOUTH SABA [[id number]] Allergies As of Allen (more content not included)... Normal [facility] CNOV Office Visit (PMNA11 ) ISABEL WADDELL Ashlie ([id number]) 1960 F Date Time Provider Department 08/29/23 10:00 AM HEIDI MENARD PMNA11 During your visit today, we recorded the following information about you: Temperature Pulse Respiration Blood pressure 98 degrees 82/minute 16/minute 157/77 Weight 66.7 kg Heidi Menard MD 08/29/2023 1:08 PM Signed Ms. Waddell is a 63 year old female who presents to the [facility]. 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 Normal [facility] Comprehensive metabolic 2000 panelon 08-29-2023 Albumin [Mass/Vol] 3.9 g/dL Normal 3.9-4.9 [facility] Comment on above: Order Comment: Speci men Type: BLOOD SPECIMEN [facility] Address: [address] [place] [address] Performed By: #### 5 0190-8, 2276-4 #### [facility] CLIA [id number] [address] [place] [id number] [place] ALP [Catalytic activity/Vol] 164 U/L High 34-123 [facility] Comment on above: Order Comment: Speci men Type: BLOOD SPECIMEN [facility] Address: [address] [place] [address] Performed By: #### 5 0190-8, 2275-4 #### [facility] CLIA [id number] [address] [place] [address] [place] ALT [Catalytic activity/Vol] 45 U/L High 7-38 [facility] Comment on above: Order Comment: Speci men Type: BLOOD SPECIMEN [facility] Address: [address] [place] [address] Performed By: #### 5 0190-8, 2275-4 #### [facility] CLIA [id number] [address] [place] [address] [place] Anion gap [Moles/Vol] 10 mmol/L Normal 9-18 [facility] Comment on above: Order Comment: Speci men Type: BLOOD SPECIMEN [facility] Address: [address] [place], [place] [address] Performed By: #### 5 0190-8, 2275-4 #### [facility] CLIA [id number] [address] [place] [address] [place] AST [Catalytic activity/Vol] 48 U/L High 13-35 [facility] Comment on above: Order Comment: Speci men Type: BLOOD SPECIMEN [facility] Address: [address] [place], [place] [address] Performed By: #### 5 0190-8, 2275-4 #### [facility] CLIA [id number] [address] [place] [address] [place] Bilirubin [Mass/Vol] 0.3 mg/dL Normal 0.2-1.3 [facility] Comment on above: Order Comment: Speci men Type: BLOOD SPECIMEN [facility] Address: [address] Performed By: #### 5 0190-8, 2275- #### [facility] CLIA [id number] [address] [place] [address] [place] Calcium [Mass/Vol] 9.5 mg/dL Normal 8.5-10.2 [facility] Comment on above: Order Comment: Speci men Type: BLOOD SPECIMEN [facility] Address: [address] [place] [address] Performed By: #### 5 0190-8, 2275- #### [facility] CLIA [id number] [address] [place] [address] [place] Chloride [Moles/Vol] 107 mmol/L High 97-105 [facility] Comment on above: Order Comment: Speci men Type: BLOOD SPECIMEN [facility] Address: [address] [place], [place] [address] Performed By: #### 5 0190-8, 2276-02 #### [facility] CLIA [id number] [address] [place] [address] [place] CO2 [Moles/Vol] 24 mmol/L Normal 22-30 [facility] Comment on above: Order Comment: Speci men Type: BLOOD SPECIMEN [facility] Address: [address] Performed By: #### 5 0190-8, 2275- #### [facility] CLIA [id number] [address] [place] [address] [place] Creatinine [Mass/Vol] 0.61 mg/dL Normal 0.58-0.96 [facility] Comment on above: Order Comment: Speci men Type: BLOOD SPECIMEN [facility] Address: [address] [place] [id number] Performed By: #### 5 0190-8, 2276-4 #### [facility] CLIA [id number] [address] [place] [address] [place] Creatinine and Glomerular filtration rate.predicted panel (S/P/Bld) 101 mL/min/1.73m??? Normal >=60 [facility] Comment on above: Order Comment: Adonis mayo Type: BLOOD SPECIMEN [facility] Address: [address] [place] [address] Result Comment: Kae mated Glomerular Filtration Rate [...] Performed By: #### 5 0190-8, 2276-4 #### [facility] CLIA [id number] [address] [place] [address] [place] Glucose [Mass/Vol] 94 mg/dL Normal 74-99 [facility] Comment on above: Order Comment: Adonis mayo Type: BLOOD SPECIMEN [facility] Address: [address] [place] [address] Result Comment: The [place] Diabetes [employer] (ADA) provides guidance for cutoff [...] Standards of Medical Care in Diabetes 2016, [place]. Diabetes Care. 2016.39(Suppl 1). Performed By: #### 5 0190-8, 2276-02 #### [facility] CLIA [id number] [address] [place] [address] [place] Potassium [Moles/Vol] 4.5 mmol/L Normal 3.7-5.1 [facility] Comment on above: Order Comment: Speci men Type: BLOOD SPECIMEN [facility] Address: [address] [place] [address] Performed By: #### 5 0190-8, 2276-02 #### [facility] CLIA [id number] [address] [place] [address] [place] Protein [Mass/Vol] 6.4 g/dL Normal 6.3-8.0 [facility] Comment on above: Order Comment: Speci men Type: BLOOD SPECIMEN [facility] Address: [address] Performed By: #### 5 0190-8, 2276-02 #### [facility] CLIA [id number] [address] [place] [address] [place] Sodium [Moles/Vol] 141 mmol/L Normal 136-144 [facility] Comment on above: Order Comment: Speci men Type: BLOOD SPECIMEN [facility] Address: [address] [place] [address] Performed By: #### 5 0190-8, 2276-02 #### [facility] CLIA [id number] [address] [place] [id number] [place] Urea nitrogen [Mass/Vol] 13 mg/dL Normal 7-21 [facility] Comment on above: Order Comment: Speci men Type: BLOOD SPECIMEN [facility] Address: [address] Performed By: #### 5 0190-8, 2275- #### [facility] CLIA [id number] [address] [place] [id number] [place] ECG COMPLETEon 08-29-2023 ECG COMPLETE Ventricular Rate : 7 6 BPM Atrial Rate : 76 BPM P-R Interval : 194 ms QRS Duration : 82 ms Q-T Interval : 392 ms QTC Calculation(Bazett) : 441 ms Calculated P [place] : 22 degrees Calculated R [place] : 58 degrees Calculated T [place] : 43 degrees NORMAL SINUS RHYTHM POSSIBLE LEFT ATRIAL ENLARGEMENT LEFT VENTRICULAR HYPERTROPHY ABNORMAL ECG Confirmed by MING MITCHELL MD ([id number]) on 09/02/2023 9:46:08 PM NAME : ISABEL WADDELL PID : [id number] : 1960 Gender : Female Race : ORD : [id number] Procedure Date : Aug 29 2023 13:01:41 Edit Date : Sep 02 2023 21:46:10 Diagnosis: NORMAL SINUS RHYTHM POSSIBLE LEFT ATRIAL ENLARGEMENT LEFT VENTRICULAR HYPERTROPHY ABNORMAL ECG Confirmed by MING MITCHELL MD ([id number]) on 09/02/2023 9:46:08 PM Test Reason : Location : 119 : A17 A17 Overread By : MING MITCHELL MD Edited By : MING MITCHELL MD Referred By : [place] Acquired by : YASMIN AVILA [facility] ECHOon 08-29-2023 Echocardiography Echocardiography Report: Transthoracic Echo [facility] GUNNAR-2 Date of service: 08/29/2023 1:42:07 PM MANAGERIAL SUPERVISOR Ordering physician: MIKE THOMPSON Indication: Shortness of breath Technologist: Ashlee Mera [facility] Interpreting physician: Mikki Etienne MD PATIENT: Name: [...] * * Final * * * CC [employer] Image : [id number] Normal [facility] HISTORY PHYSICALon HISTORY PHYSICAL HNO ID: [id number] Author: Elder Galan APRN.MONSERRAT Service: ? Author [...] team about CBC once drawn. Elder Galan APRN.PALLIATIVE CARE PHYSICIAN Pelvic Floor Colorectal Surgery Risk of morbidity, mortality and/or complications of treatment plan: high Normal [facility] TYPE + SCREENon 08-29-2023 ABO group Nom (Bld) O [facility] Blood group antibody screen Ql Negative [facility] HIstorical Ab Scr Status Negative [facility] Rh Nom (Bld) Positive [facility] Type and Screen Expiration 09/01/2023 23:59 [facility] ABO O Normal [facility] Comment on above: Order Comment: Speci men Type: BLOOD SPECIMEN [facility] Address: [address] [place] [phone] Performed By: #### 5 0190-8, 6-4 #### [facility] CLIA [id number] [address] OF [facility] HISTORICAL AB SCR STATUS Negative Normal [facility] Comment on above: Order Comment: Speci men Type: BLOOD SPECIMEN Ordering Facility: [facility] Address: [address] [place] [address] Performed By: #### 5 0190-8, 2275-4 #### [facility] CLIA [id number] [address] [place] [address] [place] Rh Nom (Bld) Positive Normal [facility] Comment on above: Order Comment: Speci men Type: BLOOD SPECIMEN [facility]ing [facility] Address: [address] [place] [address] Performed By: #### 5 0190-8, 2275-4 #### [facility] CLIA [id number] [address] [place] [address] OF [place] TYPE AND SCREEN EXPIRATION 09/01/2023 23:59 Normal [facility] Comment on above: Order Comment: Speci men Type: BLOOD SPECIMEN [facility] Address: [address] [place] [address] Performed By: #### 5 0190-8, 2275-4 #### [facility] CLIA [id number] [address] [place] [address] [place] XR CHEST 2V [...] of the thoracic spine. IMPRESSION: See Result. Chip Unloader: DANA Transcribe Date/Time: Aug 29 2023 9:55A Dictated by : KRYSTIAN MULTANI MD This examination was interpreted and the report reviewed and electronically signed by: KRYSTIAN MULTANI MD on Aug 29 2023 9:57AM EST [id number] Normal [facility] CT CHEST WO IVCONon 08-22-20 CT CHEST WO IVCON * * *Final Report* * * DATE OF EXAM: Aug 22 2023 8:49AM [facility] 0541 - CT CHEST WO IVCON [...] wall is unremarkable. Upper abdomen: Prior cholecystectomy. Cheese Grader (topogram) images: No additional findings. IMPRESSION: 1. No convincing findings of interstitial lung disease. There is excessive dynamic collapse of mainstem bronchi. 2. Unchanged scattered calcified granulomas. No suspicious lung nodules. Chip Unloader: DANA Transcribe Date/Time: Aug 22 2023 8:56A Dictated by : RICHARD LOVELACE MD This examination was interpreted and the report reviewed and electronically signed by: RICHARD LOVELACE MD on Aug 22 2023 9:01AM EST [id number] Normal [facility] CNPNon 07-22-2023 CNPN Telephone (HOMERO) ISABEL WADDELL ([id number]) 1960 F Date Time Provider Department 07/22/23 [place] During your visit today, we recorded the following information about you: [facility] 07/22/2023 3:18 PM Signed Isabel Waddell accepts [...] mg by mouth daily at bedtime. - PLSF2-YQF-QAZ-FISH OIL-L.CASEI ORAL Take by mouth once daily. [...] Status:Closed by GABY NICHOLS RN on 07/22/23 [facility] Telephone ([employer]) ISABEL WADDELL ([id number]) 1960 F Date Time Provider Department 07/22/23 [place] During your visit today, we recorded the following information about you: Enid Baker 07/22/2023 2:49 PM Signed [phone] Patient calling to reschedule her EUA. Allergies [...] mg by mouth daily at bedtime. - OBDE2-WUM-YGT-FISH OIL-L.CASEI ORAL Take by mouth once daily. [...] Status:Closed by ENID BAKER on 07/22/23 Normal [facility] Comprehensive metabolic 2000 panelon 07-05-2023 Albumin [Mass/Vol] 4.0 g/dL 3.9 - 4.9 g/dL [facility] ALP [Catalytic activity/Vol] 161 U/L High 34 - 123 U/L [facility] ALT [Catalytic activity/Vol] 47 U/L High 7 - 38 U/L [facility] Anion gap [Moles/Vol] 11 mmol/L 9 - 18 mmol/L [facility] AST [Catalytic activity/Vol] 41 U/L High 13 - 35 U/L [facility] Bilirubin [Mass/Vol] 0.3 mg/dL 0.2 - 1 .3 mg/dL [facility] Calcium [Mass/Vol] 9.5 mg/dL 8.5 - 10. 2 mg/dL [facility] Chloride [Moles/Vol] 105 mmol/L 97 - 10 5 mmol/L [facility] CO2 [Moles/Vol] 26 mmol/L 22 - 30 mmol/L [facility] Creatinine [Mass/Vol] 0.74 mg/dL 0.58 - 0.96 mg/dL [facility] Estimated Glomerular Filtration Rate 91 mL/min/1.73m >=60 mL/min/1.73m [facility] Glucose [Mass/Vol] 104 mg/dL High 74 - 99 mg/dL [facility] Potassium [Moles/Vol] 4.5 mmol/L 3.7 - 5.1 mmol/L [facility] Protein [Mass/Vol] 6.3 g/dL 6.3 - 8.0 g/dL [facility] Sodium [Moles/Vol] 142 mmol/L 136 - 144 mmol/L [facility] Urea nitrogen [Mass/Vol] 16 mg/dL 7 - 21 mg/dL [facility] CBC W Auto Differential pane l (Bld)on 07-04-2023 Basophils (Bld) [#/Vol] 0.03 10*3/uL Normal <0.11 [facility] Comment on above: Order Comment: Speci men Type: BLOOD SPECIMEN [facility] Address: [address] [place] [address] Performed By: #### 5 0190-8, 2275- #### [facility] CLIA [id number] [address] [place] [address] [place] Basophils/100 WBC (Bld) 0.9 % Normal [facility] Comment on above: Order Comment: Speci men Type: BLOOD SPECIMEN Ordering Facility[facility] Address: [address] Performed By: #### 5 0190-8, 2275- #### [facility] CLIA [id number] [address] [place] [address] [place] Differential cell count method Nom (Bld) Auto Normal [facility] Comment on above: Order Comment: Speci men Type: BLOOD SPECIMEN Ordering Facility[facility] Address: [address] Performed By: #### 5 0190-8, 2276-02 #### [facility] CLIA [id number] [address] [place] [address] [place] Eosinophils (Bld) [#/Vol] 0.16 10*3/uL Normal <0.46 [facility] Comment on above: Order Comment: Speci men Type: BLOOD SPECIMEN Order[facility] Address: [address] [place] [address] Performed By: #### 5 0190-8, 2276-02 #### [facility] CLIA [id number] [address] [place] [address] [place] Eosinophils/100 WBC (Bld) 4.9 % Normal [facility] Comment on above: Order Comment: Speci men Type: BLOOD SPECIMEN Order[facility] Address: [address] [place] [address] Performed By: #### 5 0190-8, 2276-02 #### [facility] CLIA [id number] [address] [place] [address] [place] Erythrocyte distribution width (RBC) [Ratio] 19.9 % High 11.5-15.0 [facility] Comment on above: Order Comment: Speci men Type: BLOOD SPECIMEN Order[facility] Address: [address] [place] [address] Performed By: #### 5 0190-8, 2276-02 #### [facility] CLIA [id number] [address] [place] [address] [place] Hematocrit (Bld) [Volume fraction] 25.1 % Low 36.0-46.0 [facility] Comment on above: Order Comment: Speci men Type: BLOOD SPECIMEN Order[facility] Address: [address] [place] [address] Performed By: #### 5 0190-8, 2275- #### [facility] CLIA [id number] [address] [place] [address] [place] Hemoglobin (Bld) [Mass/Vol] 7.1 g/dL Low 11.5-15.5 [facility] Comment on above: Order Comment: Speci men Type: BLOOD SPECIMEN Order[facility] Address: [address] [place] [address] Performed By: #### 5 0190-8, 2275-4 #### [facility] CLIA [id number] [address] [place] [address] [place] Immature granulocytes (Bld) [#/Vol] 10*3/uL Normal <0.10 [facility] Comment on above: Order Comment: Speci men Type: BLOOD SPECIMEN Order[facility] Address: [address] [place] [address] Performed By: #### 5 0190-8, 2275-4 #### [facility] CLIA [id number] [address] [place] [address] [place] Immature granulocytes/100 WBC (Bld) 0.3 % Normal [facility] Comment on above: Order Comment: Speci men Type: BLOOD SPECIMEN [facility] Address: [address] [place] [address] Performed By: #### 5 0190-8, 2275-4 #### [facility] CLIA [id number] [address] [place] [address] [place] Lymphocytes (Bld) [#/Vol] 1.12 10*3/uL Normal 1.00-4.00 [facility] Comment on above: Order Comment: Speci men Type: BLOOD SPECIMEN Order[facility] Address: [address] [place], [place] [address] Performed By: #### 5 0190-8, 2275- #### [facility] CLIA [id number] [address] [place] [address] [place] Lymphocytes/100 WBC (Bld) 34.6 % Normal [facility] Comment on above: Order Comment: Speci men Type: BLOOD SPECIMEN [facility] Address: [address] [place], [place] [address] Performed By: #### 5 0190-8, 2276-02 #### [facility] CLIA [id number] [address] [place] [address] [place] MCH (RBC) [Entitic mass] 19.2 pg Low 26.0-34.0 [facility] Comment on above: Order Comment: Speci men Type: BLOOD SPECIMEN Order[facility] Address: [address] [place], [place] [address] Performed By: #### 5 0190-8, 2276-02 #### [facility] CLIA [id number] [facility] [place] [address] [place] MCHC (RBC) [Mass/Vol] 28.3 g/dL Low 30.5-36.0 [facility] Comment on above: Order Comment: Speci men Type: BLOOD SPECIMEN Order[facility] Address: [address] [place], [place] [address] Performed By: #### 5 0190-8, 2276-02 #### [facility] CLIA [id number] [address] [place] [address] [place] MCV (RBC) [Entitic vol] 67.8 fL Low 80.0-100.0 [facility] Comment on above: Order Comment: Speci men Type: BLOOD SPECIMEN Order[facility] Address: [address] [place], [place] [address] Performed By: #### 5 0190-8, 2276-02 #### [facility] CLIA [id number] [address] [place] [address] [place] Monocytes (Bld) [#/Vol] 0.49 10*3/uL Normal <0.87 [facility] Comment on above: Order Comment: Speci men Type: BLOOD SPECIMEN Order[facility] Address: [address] Performed By: #### 5 0190-8, 2275- #### [facility] CLIA [id number] [address] [place] [address] [place] Monocytes/100 WBC (Bld) 15.1 % Normal [facility] Comment on above: Order Comment: Speci men Type: BLOOD SPECIMEN Order[facility] Address: [address] Performed By: #### 5 0190-8, 2275- #### [facility] CLIA [id number] [address] [place] [address] [place] Neutrophils (Bld) [#/Vol] 1.43 10*3/uL Low 1.45-7.50 [facility] Comment on above: Order Comment: Speci men Type: BLOOD SPECIMEN Order[facility] Address: [address] Performed By: #### 5 0190-8, 2276-02 #### [facility] CLIA [id number] [address] [place] [address] [place] Neutrophils/100 WBC (Bld) 44.2 % Normal [facility] Comment on above: Order Comment: Speci men Type: BLOOD SPECIMEN Order[facility] Address: [address] Performed By: #### 5 0190-8, 2275- #### [facility] CLIA [id number] [address] [place] [address] [place] Nucleated RBC (Bld) [#/Vol] 10*3/uL Normal <0.01 [facility] Comment on above: Order Comment: Speci men Type: BLOOD SPECIMEN Order[facility] Address: [address] Performed By: #### 5 0190-8, 2275- #### [facility] CLIA [id number] [address] [place] [address] [place] Nucleated RBC/100 WBC (Bld) [Ratio] 0.0 /100 WBC Normal [facility] Comment on above: Order Comment: Speci men Type: BLOOD SPECIMEN [facility] Address: [address] [place], [place] [address] Performed By: #### 5 0190-8, 2275- #### [facility] CLIA [id number] [address] [place] [address] [place] Platelet mean volume (Bld) [Entitic vol] 9.8 fL Normal 9.0-12.7 [facility] Comment on above: Order Comment: Speci men Type: BLOOD SPECIMEN [facility] Address: [address] [place], [place] [address] Performed By: #### 5 0190-8, 2276-02 #### [facility] CLIA [id number] [address] [place] [address] [place] Platelets (Bld) [#/Vol] 304 10*3/uL Normal 150-400 [facility] Comment on above: Order Comment: Speci men Type: BLOOD SPECIMEN [facility] Address: [address] [place] [phone] Performed By: #### 5 0190-8, 2276-02 #### [facility] CLIA [id number] [address] [place] [address] [place] RBC (Bld) [#/Vol] 3.70 10*6/uL Low 3.90-5.20 [facility] Comment on above: Order Comment: Speci men Type: BLOOD SPECIMEN Order[facility] Address: [address] [place], [place] [id number] Performed By: #### 5 0190-8, 2275-4 #### [facility] CLIA [id number] [address] [facility] [place] [address] [place] WBC (Bld) [#/Vol] 3.24 10*3/uL Low 3.70-11.00 [facility] Comment on above: Order Comment: Speci men Type: BLOOD SPECIMEN [facility] Address: [address] [place] [address] Performed By: #### 5 0190-8, 2276-4 #### [facility] CLIA [id number] [address] [facility] [place] [address] [place] Basophils (Bld) [#/Vol] 0.03 10*3/uL <0.11 k/uL [facility] Basophils/100 WBC (Bld) 0.9 % [facility] Differential cell count method Nom (Bld) Auto [facility] Eosinophils (Bld) [#/Vol] 0.16 10*3/uL <0.46 k/uL [facility] Eosinophils/100 WBC (Bld) 4.9 % [facility] Erythrocyte distribution width (RBC) [Ratio] 19.9 % High 11.5 - 15.0 % [facility] Hematocrit (Bld) [Volume fraction] 25.1 % Low 36.0 - 46.0 % [facility] Hemoglobin (Bld) [Mass/Vol] 7.1 g/dL Low 11.5 - 15.5 g/dL [facility] Immature granulocytes (Bld) [#/Vol] <0.10 k/uL [facility] Immature granulocytes/100 WBC (Bld) 0.3 % [facility] Lymphocytes (Bld) [#/Vol] 1.12 10*3/uL 1.00 - 4.00 k/uL [facility] Lymphocytes/100 WBC (Bld) 34.6 % [facility] MCH (RBC) [Entitic mass] 19.2 pg Low 26.0 - 34.0 pg [facility] MCHC (RBC) [Mass/Vol] 28.3 g/dL Low 30.5 - 36.0 g/dL [facility] MCV (RBC) [Entitic vol] 67.8 fL Low 80.0 - 100.0 fL [facility] Monocytes (Bld) [#/Vol] 0.49 10*3/uL <0.87 k/uL [facility] Monocytes/100 WBC (Bld) 15.1 % [facility] Neutrophils (Bld) [#/Vol] 1.43 10*3/uL Low 1.45 - 7.50 k/uL [facility] Neutrophils/100 WBC (Bld) 44.2 % [facility] Nucleated RBC (Bld) [#/Vol] <0.01 k/uL [facility] Nucleated RBC/100 WBC (Bld) [Ratio] 0.0 /100 WBC [facility] Platelet mean volume (Bld) [Entitic vol] 9.8 fL 9.0 - 12.7 fL [facility] Platelets (Bld) [#/Vol] 304 10*3/uL 150 - 400 k/uL [facility] RBC (Bld) [#/Vol] 3.70 10*6/uL Low 3.90 - 5.2 0 m/uL [facility] WBC (Bld) [#/Vol] 3.24 10*3/uL Low 3.70 - 11. 00 k/uL [facility] CNOVon 07-04-2023 CNOV Office Visit (HOMERO ) ISABEL WADDELL ([id number]) 1960 F Date Time Provider Department 07/04/23 [...] regular bowel movements. 03/05/23 Juan Manuel Medina, PALLIATIVE CARE PHYSICIAN: Isabel Waddell is a 62 year old [...] 150 mg by mouth daily at bedtime. AWEX2-WOF-XAO-FISH OIL-L.CASEI ORAL Take by mouth once daily. Lactobac no.41/Bifidobact no.7 (PROBIOTIC (more content not included)... Normal [facility] Comprehensive metabolic 2000 panelon 07-04-2023 Albumin [Mass/Vol] 4.0 g/dL Normal 3.9-4.9 [facility] Comment on above: Order Comment: Speci men Type: BLOOD SPECIMEN [facility] Address: [address] [place], [place] [address] [place] [address] Performed By: #### 2 5642-8 #### [facility] CLIA [id number] [address] [place] [address] [place] ALP [Catalytic activity/Vol] 161 U/L High 34-123 [facility] Comment on above: Order Comment: Speci men Type: BLOOD SPECIMEN [facility] Address: [address] [place] [address] Performed By: #### 2 4323-8 #### [facility] CLIA [id number] [address] [place] [address] [place] ALT [Catalytic activity/Vol] 47 U/L High 7-38 [facility] Comment on above: Order Comment: Speci men Type: BLOOD SPECIMEN [facility] Address: [address] [place] [address] Performed By: #### 2 4323-8 #### [facility] CLIA [id number] [address] [place] [address] [place] Anion gap [Moles/Vol] 11 mmol/L Normal 9-18 [facility] Comment on above: Order Comment: Speci men Type: BLOOD SPECIMEN [facility] Address: [address] [place], [place] [address] Performed By: #### 2 4323-8 #### [facility] CLIA [id number] [address] [place] [address] [place] AST [Catalytic activity/Vol] 41 U/L High 13-35 [facility] Comment on above: Order Comment: Speci men Type: BLOOD SPECIMEN [facility] Address: [address] [place], [place] [address] Performed By: #### 2 4323-8 #### [facility] CLIA [id number] [address] [place] [address] [place] Bilirubin [Mass/Vol] 0.3 mg/dL Normal 0.2-1.3 [facility] Comment on above: Order Comment: Speci men Type: BLOOD SPECIMEN [facility] Address: [address] Performed By: #### 2 4323-8 #### [facility] CLIA [id number] [address] [place] [address] [place] Calcium [Mass/Vol] 9.5 mg/dL Normal 8.5-10.2 [facility] Comment on above: Order Comment: Speci men Type: BLOOD SPECIMEN [facility] Address: [address] Performed By: #### 2 4323-8 #### [facility] CLIA [id number] [address] [place] [address] [place] Chloride [Moles/Vol] 105 mmol/L Normal 97-105 [facility] Comment on above: Order Comment: Speci men Type: BLOOD SPECIMEN [facility] Address: [address] Performed By: #### 2 4323-8 #### [facility] CLIA [id number] [address] [place] [address] [place] CO2 [Moles/Vol] 26 mmol/L Normal 22-30 [facility] Comment on above: Order Comment: Speci men Type: BLOOD SPECIMEN [facility] Address: [address] Performed By: #### 2 4323-8 #### [facility] CLIA [id number] [address] [place] [address] [place] Creatinine [Mass/Vol] 0.74 mg/dL Normal 0.58-0.96 [facility] Comment on above: Order Comment: Speci men Type: BLOOD SPECIMEN [facility] Address: [address] Performed By: #### 2 4323-8 #### [facility] CLIA [id number] [facility] [place] [address] [place] Creatinine and Glomerular filtration rate.predicted panel (S/P/Bld) 91 mL/min/1.73m??? Normal >=60 [facility] Comment on above: Order Comment: Adonis mayo Type: BLOOD SPECIMEN [facility] Address: [address] [place] [address] Result Comment: Kae mated Glomerular Filtration Rate [...] GFR. Performed By: #### 2 4323-8 #### [facility] CLIA [id number] [address] [place] [address] [place] [facility] Glucose [Mass/Vol] 104 mg/dL High 74-99 [facility] Comment on above: Order Comment: Adonis mayo Type: BLOOD SPECIMEN [facility] Address: [address] [place] [address] Result Comment: The [place] [employer] (ADA) provides guidance for cutoff [...] Standards of Medical Care in Diabetes 2016, [place]. Diabetes Care. 2016.39(Suppl 1). Performed By: #### 2 4323-8 #### [facility] CLIA [id number] [address] [place] [address] [place] Potassium [Moles/Vol] 4.5 mmol/L Normal 3.7-5.1 [facility] Comment on above: Order Comment: Speci men Type: BLOOD SPECIMEN [facility] Address: [address] [place] [address] Performed By: #### 2 4323-8 #### [facility] CLIA [id number] [address] [place] [address] [place] Protein [Mass/Vol] 6.3 g/dL Normal 6.3-8.0 [facility] Comment on above: Order Comment: Speci men Type: BLOOD SPECIMEN [facility] Address: [address] [place] [address] Performed By: #### 2 4323-8 #### [facility] CLIA [id number] [address] [place] [address] [place] Sodium [Moles/Vol] 142 mmol/L Normal 136-144 [facility] Comment on above: Order Comment: Speci men Type: BLOOD SPECIMEN [facility] Address: [address] [place] [address] Performed By: #### 2 4323-8 #### [facility] CLIA [id number] [address] [place] [address] [place] Urea nitrogen [Mass/Vol] 16 mg/dL Normal 7-21 [facility] Comment on above: Order Comment: Speci men Type: BLOOD SPECIMEN [facility] Address: [address] [place] [address] Performed By: #### 2 4323-8 #### [facility] CLIA [id number] [address] [place] [address] [place] HISTORY PHYSICALon 3 HISTORY PHYSICAL HNO ID: [id number] Author: [place], DO Service: ? Author [...] regular bowel movements. 03/05/23 Juan Manuel Medina, PALLIATIVE CARE PHYSICIAN: Isabel Waddell is a 62 year old [...] 150 mg by mouth daily at bedtime. [id number]-KAC-ELM-FISH OIL-L.CASEI ORAL Take by mouth once daily. Lactobac no.41/Bifidobact no.7 (PROBIOTIC-10 ORAL) Take by mouth once daily. MULTIVITAMIN TAB Take one(1) tablet daily. 0 B COMPLEX VITAMINS CAP Take one(1) capsule daily. 0 CALCIUM CARBONATE-VIT D3-MINERALS 600 MG-400 UNIT TAB Take 1 tablet by mouth twice daily. 0 Current Facility-Administered Medications Medication (more content not included)... Normal [facility] CNOVon 06-27-2023 CNOV Office Visit (PMNA11 ) ISABEL WADDELL ([id number]) 1960 F Date Time Provider Department 06/27/23 10:30 AM HEIDI MENARD PMNA11 During your visit today, we recorded the following information about you: Temperature Pulse Respiration Blood pressure 97.4 degrees 70/minute 16/minute 141/76 Weight 69.4 kg Heidi Menard MD 06/27/2023 11:47 AM Addendum Ms. Waddell is a 63 year old female who presents to the [facility]. Consultation requested by Self. 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 Silica: No significant exposure. [place]: No significant exposure. Organic HP antigen: No [...] and de-a (more content not included)... Normal [facility] HEMOGLOBINon 03-21-2023 Hemoglobin (Bld) [Mass/Vol] 9.1 g/dL Critically low 12.0-16.0 [facility] Comment on above: Performed By: #### H GB ####[facility] [address] [place], [place] [address]Pe. Cheryl Monzon XR CHEST 2 Von 03-10-2023 [...] by: HENRY LOCK Date: 2023-03-10 13:57 Normal [facility] CNOVon 03-05-2023 CNOV Office Visit (GASTLN ) ISABEL WADDELL ([id number]) 1960 F Date Time Provider Department 03/05/23 [...] Abs Lymph 1.00 - 4.00 k/uL 1.31 Lewis% % 11.1 Abs Lewis <0.87 k/uL 0.50 Eosin% % 3.1 Abs [...] or Indwelling (more content not included)... Normal [facility] HISTORY PHYSICALon 3 HISTORY PHYSICAL HNO ID: [id number] Author: Juan Manuel Medina APRN.PALLIATIVE CARE PHYSICIAN Service: ? Author Type: Nurse Practitioner Type: [...] Abs Lymph 1.00 - 4.00 k/uL 1.31 Lewis% % 11.1 Abs Lewis <0.87 k/uL 0.50 Eosin% % 3.1 Abs [...] mouth daily (more content not included)... Normal [facility] Covid-19 PCR (CVDTBH)on SARS-CoV-2 (COVID-19) RNA ANGELA+probe Ql (Unsp spec) Not detected Normal NOT DETECTED [facility] Comment on above: Result Comment: When diagnostic [...] for this test is supported by the [place] of Health and Human Service's declaration that [...] used). Performed By: #### C VDTB #### [facility] [address] [place] [address] Dr. Cheryl Monzon INFLUENZA A AND B AGon INFLUVETERANS [facility] SEE BELOW Normal [facility] Comment on above: Result Comment: Nega tive for Flu A protein angiten. Infection due to Flu A cannot be ruled out. Flu A angiten in the sample may be below the detection limit of the test. Performed By: #### I NFLUAB #### [facility] [address] [place] [address] Dr. Cheryl Monzon [facility] SEE BELOW Normal [facility] Comment on above: Result Comment: Nega tive for Flu B protein antigen. Infection due to Flu B cannot be ruled out. Flu B antigen in the sample may be below the detection limit of the test. Performed By: #### I NFLUAB #### [facility] [address] [place] [address] Dr. Cheryl Monzon INFLUENZA A AG Negative Normal NEGATIVE SEE COMMENT [facility] Comment on above: Performed By: #### I NFLUAB #### [facility] [address] [place] [address] Dr. Cheryl Monzon INFLUENZA B AG Negative Normal NEGATIVE SEE COMMENT [facility] Comment on above: Performed By: #### I NFLUAB #### [facility] [address] [address] [address] Cheryl Monzon FERRITIN BLDon 01-04-2023 Ferritin [Mass/Vol] 14.2 ng/mL Low 14.7 - 2 05.1 ng/mL [facility] Iron and Iron binding capaci ty panelon 01-04-2023 Iron [Mass/Vol] 77 ug/dL 41 - 186 ug/dL [facility] Iron binding capacity [Mass/Vol] 382 ug/dL 232 - 386 ug/dL [facility] Iron/TIBC [Molar ratio] 20.2 % 15.0 - 57.0 % [facility] CBC W Auto Differential pane l (Bld)on 01-03-2023 Basophils (Bld) [#/Vol] 10*3/uL Normal <0.11 [facility] Comment on above: Order Comment: Speci men Type: BLOOD SPECIMENOrdering Facility: [facility] Address: [address] [address] Performed By: #### 5 7021-8 ####[facility] LABCLIA [id number] [address] [place] Basophils/100 WBC (Bld) 0.4 % Normal [facility] Comment on above: Order Comment: Speci men Type: BLOOD SPECIMENOrdering Facility: [facility] Address: [address] [address] Performed By: #### 5 7021-8 ####[facility] LABCLIA [id number] [place] [address] [place] Differential cell count method Nom (Bld) Auto Normal [facility] Comment on above: Order Comment: Speci men Type: BLOOD SPECIMENOrdering Facility: [facility] Address: [address] [address] Performed By: #### 5 7021-8 ####[facility] LABCLIA [id number] [place] [address] [place] Eosinophils (Bld) [#/Vol] 0.14 10*3/uL Normal <0.46 [facility] Comment on above: Order Comment: Speci men Type: BLOOD SPECIMENOrdering Facility: [facility] Address: [address] [place] [address] Performed By: #### 5 7021-8 ####[facility] LABCLIA [id number] [place] [address] [place] Eosinophils/100 WBC (Bld) 3.1 % Normal [facility] Comment on above: Order Comment: Speci men Type: BLOOD SPECIMENOrdering Facility: [facility] Address: [address] [place] [address] Performed By: #### 5 7021-8 ####[facility] LABCLIA [id number] [place] [address] [place] Erythrocyte distribution width (RBC) [Ratio] 13.0 % Normal 11.5-15.0 [facility] Comment on above: Order Comment: Speci men Type: BLOOD SPECIMENOrdering Facility: [facility] Address: [address] [place], [place] [address] Performed By: #### 5 7021-8 ####[facility] LABCLIA [id number] [place] [address] [place] Hematocrit (Bld) [Volume fraction] 35.4 % Low 36.0-46.0 [facility] Comment on above: Order Comment: Speci men Type: BLOOD SPECIMENOrdering Facility: [facility] Address: [address] [place], [place] [address] Performed By: #### 5 7021-8 ####[facility] LABCLIA [id number] [place] [address] [place] Hemoglobin (Bld) [Mass/Vol] 11.5 g/dL Normal 11.5-15.5 [facility] Comment on above: Order Comment: Speci men Type: BLOOD SPECIMENOrdering Facility: [facility] Address: [address] Performed By: #### 5 7021-8 ####[facility] LABCLIA [id number] [place] [address] [place] Immature granulocytes (Bld) [#/Vol] 10*3/uL Normal <0.10 [facility] Comment on above: Order Comment: Speci men Type: BLOOD SPECIMENOrdering Facility: [facility] Address: [address] Performed By: #### 5 7021-8 ####[facility] LABCLIA [id number] [address] [place] Immature granulocytes/100 WBC (Bld) 0.2 % Normal [facility] Comment on above: Order Comment: Speci men Type: BLOOD SPECIMENOrdering Facility: [facility] Address: [address] [place], [place] [address] Performed By: #### 5 7021-8 ####[facility] LABCLIA [id number] [place] [address] [place] Lymphocytes (Bld) [#/Vol] 1.31 10*3/uL Normal 1.00-4.00 [facility] Comment on above: Order Comment: Speci men Type: BLOOD SPECIMENOrdering Facility: [facility] Address: [address] [place], [place] [address] Performed By: #### 5 7021-8 ####[facility] LABCLIA [id number] [place] [address] [place] Lymphocytes/100 WBC (Bld) 29.0 % Normal [facility] Comment on above: Order Comment: Speci men Type: BLOOD SPECIMENOrdering Facility: [facility] Address: [address] [place], [place] [address] Performed By: #### 5 7021-8 ####[facility] LABCLIA [id number] [address] MCH (RBC) [Entitic mass] 30.0 pg Normal 26.0-34.0 [facility] Comment on above: Order Comment: Speci men Type: BLOOD SPECIMENOrdering Facility: [facility] Address: [address] [place] [address] Performed By: #### 5 7021-8 ####[facility] LABCLIA [id number] [address] MCHC (RBC) [Mass/Vol] 32.5 g/dL Normal 30.5-36.0 [facility] Comment on above: Order Comment: Speci men Type: BLOOD SPECIMENOrdering Facility: [facility] Address: [address] [place] [address] Performed By: #### 5 7021-8 ####[facility] LABCLIA [id number] [address] MCV (RBC) [Entitic vol] 92.4 fL Normal 80.0-100.0 [facility] Comment on above: Order Comment: Speci men Type: BLOOD SPECIMENOrdering Facility: [facility] Address: [address] [place] [address] Performed By: #### 5 7021-8 ####[facility] LABCLIA [id number] [place] [address] [place] Monocytes (Bld) [#/Vol] 0.50 10*3/uL Normal <0.87 [facility] Comment on above: Order Comment: Speci men Type: BLOOD SPECIMENOrdering Facility: [facility] Address: [address] [place] [address] Performed By: #### 5 7021-8 ####[facility] LABCLIA [id number] [address] [place] Monocytes/100 WBC (Bld) 11.1 % Normal [facility] Comment on above: Order Comment: Speci men Type: BLOOD SPECIMENOrdering Facility: [facility] Address: [address] Performed By: #### 5 7021-8 ####[facility] LABCLIA [id number] [place] [address] [place] Neutrophils (Bld) [#/Vol] 2.53 10*3/uL Normal 1.45-7.50 [facility] Comment on above: Order Comment: Speci men Type: BLOOD SPECIMENOrdering Facility: [facility] Address: [address] [address] Performed By: #### 5 7021-8 ####[facility] LABCLIA [id number] [place] [address] [place] Neutrophils/100 WBC (Bld) 56.2 % Normal [facility] Comment on above: Order Comment: Speci men Type: BLOOD SPECIMENOrdering Facility: [facility] Address: [address] Performed By: #### 5 7021-8 ####[facility] LABCLIA [id number] [place] [address] [place] Nucleated RBC (Bld) [#/Vol] 10*3/uL Normal <0.01 [facility] Comment on above: Order Comment: Speci men Type: BLOOD SPECIMENOrdering Facility: [facility] Address: [address] Performed By: #### 5 7021-8 ####[facility] LABCLIA [id number] [place] [address] [place] Nucleated RBC/100 WBC (Bld) [Ratio] 0.0 /100 WBC Normal [facility] Comment on above: Order Comment: Speci men Type: BLOOD SPECIMENOrdering Facility: [facility] Address: [address] Performed By: #### 5 7021-8 ####[facility] LABCLIA [id number] [place] [address] [place] Platelet mean volume (Bld) [Entitic vol] 9.9 fL Normal 9.0-12.7 [facility] Comment on above: Order Comment: Speci men Type: BLOOD SPECIMENOrdering Facility: [facility] Address: [address] [place], [place] [address] Performed By: #### 5 7021-8 ####[facility] LABCLIA [id number] [place] [address] [place] Platelets (Bld) [#/Vol] 235 10*3/uL Normal 150-400 [facility] Comment on above: Order Comment: Speci men Type: BLOOD SPECIMENOrdering Facility: [facility] Address: [address] [place], [place] [address] Performed By: #### 5 7021-8 ####[facility] LABIA [id number] [place] [address] [place] RBC (Bld) [#/Vol] 3.83 10*6/uL Low 3.90-5.20 [facility] Comment on above: Order Comment: Speci men Type: BLOOD SPECIMENOrdering Facility: [facility] Address: [address] [place], [place] [address] Performed By: #### 5 7021-8 ####[facility] LABIA [id number] [place] [address] [place] WBC (Bld) [#/Vol] 4.51 10*3/uL Normal 3.70-11.00 [facility] Comment on above: Order Comment: Speci men Type: BLOOD SPECIMENOrdering Facility: [facility] Address: [address] [place], [place] [address] Performed By: #### 5 7021-8 ####[facility] LABCLIA [id number] [place] [address] [place] Basophils (Bld) [#/Vol] <0.11 k/uL [facility] Basophils/100 WBC (Bld) 0.4 % [facility] Differential cell count method Nom (Bld) Auto [facility] Eosinophils (Bld) [#/Vol] 0.14 10*3/uL <0.46 k/uL [facility] Eosinophils/100 WBC (Bld) 3.1 % [facility] Erythrocyte distribution width (RBC) [Ratio] 13.0 % 11.5 - 15.0 % [facility] Hematocrit (Bld) [Volume fraction] 35.4 % Low 36.0 - 46.0 % [facility] Hemoglobin (Bld) [Mass/Vol] 11.5 g/dL 11.5 - 15.5 g/dL [facility] Immature granulocytes (Bld) [#/Vol] <0.10 k/uL [facility] Immature granulocytes/100 WBC (Bld) 0.2 % [facility] Lymphocytes (Bld) [#/Vol] 1.31 10*3/uL 1.00 - 4.00 k/uL [facility] Lymphocytes/100 WBC (Bld) 29.0 % [facility] MCH (RBC) [Entitic mass] 30.0 pg 26.0 - 34.0 pg [facility] MCHC (RBC) [Mass/Vol] 32.5 g/dL 30.5 - 36.0 g/dL [facility] MCV (RBC) [Entitic vol] 92.4 fL 80.0 - 100.0 fL [facility] Monocytes (Bld) [#/Vol] 0.50 10*3/uL <0.87 k/uL [facility] Monocytes/100 WBC (Bld) 11.1 % [facility] Neutrophils (Bld) [#/Vol] 2.53 10*3/uL 1.45 - 7.50 k/uL [facility] Neutrophils/100 WBC (Bld) 56.2 % [facility] Nucleated RBC (Bld) [#/Vol] <0.01 k/uL [facility] Nucleated RBC/100 WBC (Bld) [Ratio] 0.0 /100 WBC [facility] Platelet mean volume (Bld) [Entitic vol] 9.9 fL 9.0 - 12.7 fL [facility] Platelets (Bld) [#/Vol] 235 10*3/uL 150 - 400 k/uL [facility] RBC (Bld) [#/Vol] 3.83 10*6/uL Low 3.90 - 5.2 0 m/uL [facility] WBC (Bld) [#/Vol] 4.51 10*3/uL 3.70 - 11. 00 k/uL [facility] CNOVSPon 01-03-2023 CNOVSP Visit (SP) Office (BHAVNA) ISABEL WADDELL ([id number]) 1960 F Date Time Provider Department 01/03/23 3:20 PM EHNRY RAMOS During your visit today, we recorded the following information about you: Temperature Pulse Blood pressure Weight 97.8 degrees 95/minute 141/87 71.2 kg Height 1.676 m Henry Ramos MD 01/12/2023 11:27 PM Signed Gynecologic Oncology [facility] Follow up visit Date of service: 01/03/2023 [...] differentiation, FIGO grade 2. Neg LVSI, 13% SC pT1a (IA): Tumor limited to endometrium or invades less than 1/2 of the myometrium 05/25/2021 Vaginal biopsy Vagina, biopsy - Consistent with endometrioid adenocarcinoma (see comment). GZ/ka 05/28/2021 COMMENT The tumor cells are diffusely and strongly positive for immunohistochemical stain for [place] 8, supporting the above diagnosis. The patient [...] ORAL T (more content not included)... Normal [facility] Ferritin SerPl-mCncon 2022 Ferritin [Mass/Vol] 14.2 ng/mL Low 14.7-205.1 [facility] Comment on above: Order Comment: Adonis mayo Type: BLOOD SPECIMEN [facility] Address: [address] [place], [place] [address] Performed By: #### 5 0190-8, 2276-02 #### [facility] CLIA [id number] [address] [place] [address] [place] Iron and Iron binding capaci ty panelon 01-03-2023 Iron [Mass/Vol] 77 ug/dL Normal 41-186 [facility] Comment on above: Order Comment: Adonis mayo Type: BLOOD SPECIMEN [facility] Address: [address] [place], [place] [address] Performed By: #### 5 0190-8, 2276-02 #### [facility] CLIA [id number] [address] [place] [address] [place] Iron binding capacity [Mass/Vol] 382 ug/dL Normal 232-386 [facility] Comment on above: Order Comment: Speci men Type: BLOOD SPECIMEN [facility] Address: [address] [id number] Performed By: #### 5 0190-8, 2276-02 #### [facility] CLIA [id number] [address] [facility] Iron/TIBC [Molar ratio] 20.2 % Normal 15.0-57.0 [facility] Comment on above: Order Comment: Speci men Type: BLOOD SPECIMEN [facility] Address: [address] Performed By: #### 5 0190-8, 2276-02 #### [facility] CLIA [id number] [address] [place] Vaishnavi 12-25-2022 DEBORA Telephone (BHAVNA) ISABEL WADDELL ([id number]) 1960 F Date Time Provider Department 12/25/22 ARETHA PENA During your visit today, we recorded the following information about you: Aretha Pena RN 12/25/2022 2:19 PM Signed ----- Message from Carnet de Mode sent at 12/25/2022 12:04 PM EST ----- Regarding: Rachel Patient bleeding and clotting almost daily since Colonoscopy. September was the Colonoscopy. Concerned and would like to know if she should schedule an appointment. [phone] Aretha Pena RN 12/25/2022 2:24 PM Signed [...] mg by mouth daily at bedtime. - [id number]-FISH OIL-L.CASEI ORAL Take by mouth once daily. [...] Status:Closed by ARETHA PENA on 12/25/22 Normal [facility] Covid-19 PCR (CVDTBH)on SARS-CoV-2 (COVID-19) RNA ANGELA+probe Ql (Unsp spec) Not detected Normal NOT DETECTED [facility] Comment on above: Result Comment: When diagnostic [...] for this test is supported by the [place] of Health and Human Service's declaration that [...] used). Performed By: #### C VDTBH #### [facility] [address] [place] [address] Dr. Cheryl Monzon INFLUENZA A AND B AGon 11-19 [facility]FL[facility]ER[facility] SEE BELOW Normal [facility] Comment on above: Result Comment: Nega tive for Flu A protein angiten. Infection due to Flu A cannot be ruled out. Flu A angiten in the sample may be below the detection limit of the test. Performed By: #### I NFLUAB #### [facility] [address] [place] [address] Dr. Cheryl Monzon INFLUBNEGH SEE BELOW Normal [facility] Comment on above: Result Comment: Nega tive for Flu B protein antigen. Infection due to Flu B cannot be ruled out. Flu B antigen in the sample may be below the detection limit of the test. Performed By: #### I NFLUAB #### [facility] [address] [address] [address] Cheryl Monzon INFLUENZA A AG Negative Normal NEGATIVE SEE COMMENT [facility] Comment on above: Performed By: #### I NFLUAB #### [facility] [address] [address] [address] Cheryl Monzon INFLUENZA B AG Negative Normal NEGATIVE SEE COMMENT [facility] Comment on above: Performed By: #### I NFLUAB #### [facility] [address] [place] [address] Dr. Cheryl Monzon MG MAMM SCREEN 3D RAGHU CADon 10-04-2022 MG MAMM SCREEN 3D RAGHU CAD Patient: ISABEL WADDELL Exam Date: 10/04/2022 : 1960 Gender:F Ordering : DR ROLAND SERRANO D.O. Admission #: [id number] Family : Order #: [id number] CLICK HERE TO VIEW EXAM RADIOLOGY REPORT [...] Treatments radiation-hysterectomy Family Cancers None LOCATION: [facility] BREAST COMPOSITION: Scattered areas fibroglandular density. FINDINGS: [...] MD on 10/04/2022 at 13:53 Normal [facility] COLONOSCOPY (THERAPEUTIC)on 09-26-2022 [facility] T3, TOTAL (TRIIODOTHYRONINE) on 09-05-2022 T3, TOTAL 132 ng/dL Normal 71-180 [facility] Comment on above: Performed By: #### T 3TOTAL ####[facility] [address] [address]Dr. Cheryl Monzon CBC AUTO DIFFon 09-04-2022 BASO # 0.0 103/ul Normal 0.0-0.1 [facility] Comment on above: Performed By: #### C BC ####[facility] [address] [place], [place] [address]Dr. Cheryl Monzon Basophils/100 WBC (Bld) 0.4 % Normal 0.2-2.0 [facility] Comment on above: Performed By: #### C BC ####[facility] [address] [place], [place] [address]Dr. Cheryl Monzon EO # 0.1 103/ul Normal 0.0-0.7 [facility] Comment on above: Performed By: #### C BC ####[facility] [address] [place], [place] [address]Dr. Cheryl Monzon Eosinophils/100 WBC (Bld) 4.9 % Normal 0.9-7.0 [facility] Comment on above: Performed By: #### C BC ####[facility] [address] [place], [place] [address]Dr. Cheryl Monzon Erythrocyte distribution width (RBC) [Ratio] 12.8 % Normal 11.0-15.0 [facility] Comment on above: Performed By: #### C BC ####[facility] [address] [place], [place] [address]Dr. Cheryl Monzon Hematocrit (Bld) [Volume fraction] 36.7 % Normal 36.0-48.0 [facility] Comment on above: Performed By: #### C BC ####[facility] [address] [place], [place] [address]Dr. Cheryl Monzon Hemoglobin (Bld) [Mass/Vol] 11.8 g/dL Critically low 12.0-16.0 [facility] Comment on above: Performed By: #### C BC ####[facility] [address] [id number]. Cheryl Monzon IG # 0.01 10e3/ul Normal 0.00-0.03 [facility] Comment on above: Performed By: #### C BC ####[facility] [address] [address]Dr. Cheryl Monzon IG % 0.4 % Normal 0.0-0.5 [facility] Comment on above: Performed By: #### C BC ####[facility] [address] [address]Dr. Cheryl Monzon LYMPH # 0.8 103/ul Critically low 1.2-3.8 [facility] Comment on above: Performed By: #### C BC ####[facility] [address] [address]Dr. Cheryl Monzon Lymphocytes/100 WBC (Bld) 28.6 % Normal 20.5-60.0 [facility] Comment on above: Performed By: #### C BC ####[facility] [address] [address]Dr. Cheryl Monzon MANUAL DIFF REQ NO Normal [facility] Comment on above: Performed By: #### C BC ####[facility] [address] [address]Dr. Cheryl Monzon MCH (RBC) [Entitic mass] 30.7 pg Normal 26.7-34.0 [facility] Comment on above: Performed By: #### C BC ####[facility] [address] [place], [place] [address]Dr. Cheryl Monzon MCHC (RBC) [Mass/Vol] 32.2 g/dL Normal 29.9-35.2 [facility] Comment on above: Performed By: #### C BC ####[facility] [address] [address]Dr. Cheryl Monzon MCV (RBC) [Entitic vol] 95.6 fL Normal 81.0-99.0 [facility] Comment on above: Performed By: #### C BC ####[facility] [address] [id number]. Cheryl Monzon MONO # 0.3 103/ul Normal 0.3-0.8 [facility] Comment on above: Performed By: #### C BC ####[facility] [address] [id number]. Cheryl Monzon Monocytes/100 WBC (Bld) 11.7 % Normal 1.7-12.0 [facility] Comment on above: Performed By: #### C BC ####[facility] [address] [address]Dr. Cheryl Monzon NEUT # 1.4 103/ul Normal 1.4-6.5 [facility] Comment on above: Performed By: #### C BC ####[facility] [address] [id number]. Cheryl Monzon Neutrophils/100 WBC (Bld) 54.0 % Normal 43.0-75.0 [facility] Comment on above: Performed By: #### C BC ####[facility] [id number] [place] [id number]. Cheryl Monzon Platelet mean volume (Bld) [Entitic vol] 9.2 fL Critically low 9.5-13.5 [facility] Comment on above: Performed By: #### C BC ####[facility] [address] [place] [id number]. Cheryl Monzon PLT 217 103/ul Normal 150-450 [facility] Comment on above: Performed By: #### C BC ####[facility] [address] [place] [id number]. Cheryl Monzon RBC 3.84 106/ul Critically low 4.20-5.40 [facility] Comment on above: Performed By: #### C BC ####[facility] [address] [place] [id number]. Cheryl Monzon WBC 2.7 103/ul Critically low 4.0-11.0 [facility] Comment on above: Performed By: #### C BC ####[facility] [address] [place], [place] [address]Dr. Cheryl Monzon FREE T4on 09-04-2022 Free T4 [Mass/Vol] 0.83 ng/dL Normal 0.76-1.46 [facility] Comment on above: Performed By: #### F T4 #### [facility] [id number] Cheryl Monzon GLYCOHEMOGLOBIN A1Con 2021 ADA RECOMMENDATION SEE BELOW Normal [facility] Comment on above: Result Comment: ADA RECOMMENDED LIMIT 4.0 - 6.0 ADA THERAPEUTIC TARGET < 7.0 ACTION SUGGESTED > 7.0 Performed By: #### A 1C #### [facility] [address] [address] [address] Cheryl Monzon Glucose [Mass/Vol] 111 mg/dL Normal [facility] Comment on above: Performed By: #### A 1C #### [facility] [address] [address] [address] Cheryl Monzon HbA1c (Bld) [Mass fraction] 5.5 % Normal 4.5-6.2 [facility] Comment on above: Performed By: #### A 1C #### [facility] [address] [address] [address] Cheryl Monzon LIPID PROFILEon 09-04-2022 CHOL-HDL RATIO NORM SEE BELOW Normal [facility] Comment on above: Result Comment: 3.3 - 4.4 LOW RISK 4.4 - 7.1 AVERAGE RISK 7.1 - 11.0 MODERATE RISK >11.0 HIGH RISK Performed By: #### T SH, LIPID, CMP ####[facility] [address] [place] [id number]. Cheryl Monzon Cholesterol [Mass/Vol] 201 mg/dL Critically high <=200 [facility] Comment on above: Performed By: #### T SH, LIPID, CMP ####[facility] [address] [place] [id number]. Cheryl Monzon Cholesterol in HDL [Mass/Vol] 78 mg/dL Critically high 40-60 [facility] Comment on above: Performed By: #### T SH, LIPID, CMP ####[facility] [address] [place] [phone]. Cheryl Monzon Cholesterol in LDL [Mass/Vol] 112.8 mg/dL Normal [facility] Comment on above: Performed By: #### T PUSHPA, LIPID, CMP ####[facility] [address] [place] [phone]. Cheryl Monzon Cholesterol.total/Chol esterol in HDL [Mass ratio] 2.6 {ratio} Normal [facility] Comment on above: Performed By: #### T PUSHPA, LIPID, CMP ####[facility] [address] [place] [phone]. Cheryl Monzon HDL NORMAL > or = 60 mg/dl - LO W CARDIOVASCULAR RISK <40 mg/dl - HIGH CARDIOVASCULAR RISK Normal [facility] Comment on above: Performed By: #### T PUSHPA, LIPID, CMP ####[facility] [address] [place] [address]Dr. Cheryl Monzon LDL CALC NORMAL SEE BELOW Normal [facility] Comment on above: Result Comment: <100 mg/dl OPTIMAL 100 - 129 mg/dl NEAR OR ABOVE OPTIMAL 130 - 159 mg/dl BORDERLINE HIGH 160 - 189 mg/dl HIGH >190 mg/dl VERY HIGH Performed By: #### T PUSHPA, LIPID, CMP ####[facility] [address] [place] [phone]. Cheryl Monzon Triglyceride [Mass/Vol] 51 mg/dL Normal <=150 [facility] Comment on above: Performed By: #### T PUSHPA, LIPID, CMP ####[facility] [address] [place] [phone]. Cheryl Monzon VLDL CALC 10.2 mg/dL Normal [facility] Comment on above: Performed By: #### T PUSHPA, LIPID, CMP ####[facility] [address] [place] [address]Dr. Cheryl Monzon PROF 14(COMP METB)on 022 Albumin [Mass/Vol] 3.3 g/dL Critically low 3.4-5.0 [facility] Comment on above: Performed By: #### T SH, LIPID, CMP #### [facility] [address] [address] [address] Cheryl Monzon Albumin/Globulin [Mass ratio] 1.0 {ratio} Normal [facility] Comment on above: Performed By: #### T SH, LIPID, CMP #### [facility] [address] [address] [address] Cheryl Monzon ALP [Catalytic activity/Vol] 94 U/L Normal 46-116 [facility] Comment on above: Performed By: #### T SH, LIPID, CMP #### [facility] [address] [address] [address] Cheryl Monzon ALT [Catalytic activity/Vol] 53 U/L Normal 14-59 [facility] Comment on above: Performed By: #### T SH, LIPID, CMP #### [facility] [address] [place] [address] Dr. Cheryl Monzon Anion gap [Moles/Vol] 8.8 mmol/L Normal [facility] Comment on above: Performed By: #### T SH, LIPID, CMP #### [facility] [address] [address] [address] Cheryl Monzon AST [Catalytic activity/Vol] 42 U/L Critically high 15-37 [facility] Comment on above: Performed By: #### T SH, LIPID, CMP #### [facility] [address] [address] [address] Cheryl Monzon Bilirubin [Mass/Vol] 0.3 mg/dL Normal 0.2-1.0 [facility] Comment on above: Performed By: #### T SH, LIPID, CMP #### [facility] [address] [address] [address] Cheryl Monzon Calcium [Mass/Vol] 8.8 mg/dL Normal 8.5-10.1 [facility] Comment on above: Performed By: #### T SH, LIPID, CMP #### [facility] [address] [place] [address] [address] Cheryl Monzon Chloride [Moles/Vol] 106 mmol/L Normal 98-107 [facility] Comment on above: Performed By: #### T SH, LIPID, CMP #### [facility] [address] [address] [address] Cheyrl Monzon CO2 [Moles/Vol] 30.7 mmol/L Normal 21.0-32.0 [facility] [place] Comment on above: Performed By: #### T SH, LIPID, CMP #### [facility] [address] [place] [address] [address] Cheryl Monzon Creatinine [Mass/Vol] 0.66 mg/dL Normal 0.55-1.02 [facility] Comment on above: Performed By: #### T SH, LIPID, CMP #### [facility] [address] [place] [address] [address] Cheryl Monzon EGFR-AF BURMESE >60 Normal >=60 [facility] [place] Comment on above: Performed By: #### T SH, LIPID, CMP #### [facility] [address] [address] [address] Cheryl Monzon EGFR-NON AF BURMESE >60 Normal >=60 [facility] Comment on above: Performed By: #### T SH, LIPID, CMP #### [facility] [address] [address] [address] Cheryl Monzon Globulin (S) [Mass/Vol] 3.4 g/dL Normal [facility] Comment on above: Performed By: #### T SH, LIPID, CMP #### [facility] [address] [address] [address] Cheryl Monzon Glucose [Mass/Vol] 115 mg/dL Critically high 74-106 [facility] Comment on above: Performed By: #### T SH, LIPID, CMP #### [facility] [address] [address] [address] Cheryl Monzon Potassium [Moles/Vol] 4.5 mmol/L Normal 3.5-5.1 [facility] Comment on above: Performed By: #### T SH, LIPID, CMP #### [facility] [address] [place] [address] [address] Cheryl Monzon Protein [Mass/Vol] 6.7 g/dL Normal 6.4-8.2 [facility] Comment on above: Performed By: #### T SH, LIPID, CMP #### [facility] [address] [place] [address] Dr. Cheryl Monzon Sodium [Moles/Vol] 141 mmol/L Normal 136-145 [facility] Comment on above: Performed By: #### T SH, LIPID, CMP #### [facility] [address] [place] [address] Dr. Cheryl Monzon Urea nitrogen [Mass/Vol] 16.0 mg/dL Normal 7.0-18.0 [facility] Comment on above: Performed By: #### T SH, LIPID, CMP #### [facility] [address] [place] [address] Dr. Cheryl Monzon Urea nitrogen/Creatinine [Mass ratio] 24.2 mg/mg Normal [facility] Comment on above: Performed By: #### T SH, LIPID, CMP #### [facility] [address] [place] [address] Dr. Cheryl Monzon TSHon 09-04-2022 TSH 0.009 uIU/mL Critically low 0.358-3.740 [facility] Comment on above: Performed By: #### T SH, LIPID, CMP #### [facility] [address] [place] [address] Dr. Cheryl Monzon [facility]18 SARS-CoV-2 (COVID-19) RNA ANGELA+probe Ql (Unsp spec) Not detected Normal NOT DETECTED [facility] Comment on above: [...] for this test is supported by the Health Physicist of Health and Human Service's declaration that [...] used). Performed By: #### C VDTB #### [facility] [address] [place], [place] [address] Dr. Cheryl Monzon CBC with Diffon 11-22-2021 Abs. Basophil 0.00 k/uL Normal 0.0-0.[address] [facility] Comment on above: Performed By: #### C DP, CMPX, SED, LAC #### [facility] [address] [place] [address] [employer] Worker: Jacob Campos MD Abs.Neutrophil (Seg) 2.80 k/uL Normal 2.5-7.0 [facility] Comment on above: Performed By: #### C DP, CMPX, SED, LAC #### [facility] [address] [place] [address] [employer] Worker: Jacob Campos MD Auto Diff Performed YES Normal [facility] Comment on above: Performed By: #### C DP, CMPX, SED, LAC #### [facility] [address] [place] [address] [employer] Worker: Jacob Campos MD Basophils/100 WBC (Bld) 1 % Normal 0-[address] [facility] Comment on above: Performed By: #### C DP, CMPX, SED, LAC #### [facility] [address] [place] [address] [employer] Worker: Jacob Campos MD Eosinophils (Bld) [#/Vol] 0.10 10*3/uL Normal 0.0-0.[address] [facility] Comment on above: Performed By: #### C DP, CMPX, SED, LAC #### [facility] [address] [place] [address] [employer] Worker: Jacob Campos MD Eosinophils/100 WBC (Bld) 3 % Normal 0-[address] [facility] Comment on above: Performed By: #### C DP, CMPX, SED, LAC #### [facility] [address] [place], [place] [phone] [employer] Worker: Jacob Campos MD Erythrocyte distribution width (RBC) [Ratio] 13.6 % Normal 12.1-15.[address] [facility] Comment on above: Performed By: #### C DP, CMPX, SED, LAC #### [facility] [address] [place] [id number] [employer] Worker: Jacob Campos MD Hematocrit (Bld) [Volume fraction] 33.4 % Low 36-[address] [facility] Comment on above: Performed By: #### C DP, CMPX, SED, LAC #### [facility] [address] [place] [phone] [employer] Worker: Jacob Campos MD Hemoglobin (Bld) [Mass/Vol] 11.3 g/dL Low 12.0-16.[address] [facility] Comment on above: Performed By: #### C DP, CMPX, SED, LAC #### [facility] [address] [place] [id number] [employer] Worker: Jacob Campos MD Lymphocytes (Bld) [#/Vol] 0.80 10*3/uL Low 1.0-4.[address] [facility] Comment on above: Performed By: #### C DP, CMPX, SED, LAC #### [facility] [address] [place] [address] [employer] Worker: Jacob Campos MD Lymphocytes/100 WBC (Bld) 19 % Normal 15-[address] [facility] Comment on above: Performed By: #### C DP, CMPX, SED, LAC #### [facility] [address] [place] [id number] [employer] Worker: Jacob Campos MD MCH (RBC) [Entitic mass] 30.5 pg Normal 26-[address] [facility] Comment on above: Performed By: #### C DP, CMPX, SED, LAC #### [facility] [address] [place], [place] [phone] [employer] Worker: Jacob Campos MD MCHC (RBC) [Mass/Vol] 33.8 g/dL Normal 31-37 [facility] Comment on above: Performed By: #### C DP, CMPX, SED, LAC #### [facility] [address] [place], [place] [id number] [employer] Worker: Jacob Campos MD MCV (RBC) [Entitic vol] 90.4 fL Normal 80-[address] [facility] Comment on above: Performed By: #### C DP, CMPX, SED, LAC #### [facility] [address] [place], [place] [id number] [employer] Worker: Jacob Campos MD Monocytes (Bld) [#/Vol] 0.50 10*3/uL Normal 0.0-1.[address] [facility] Comment on above: Performed By: #### C DP, CMPX, SED, LAC #### [facility] [address] [place], [place] [phone] [employer] Worker: Jacob Campos MD Monocytes/100 WBC (Bld) 12 % High 4-[address] [facility] Comment on above: Performed By: #### C DP, CMPX, SED, LAC #### [facility] [address] [place], [place] [id number] [employer] Worker: Jacob Campos MD Neutrophil (Seg) 65 % Normal 47-[address] [facility] Comment on above: Performed By: #### C DP, CMPX, SED, LAC #### [facility] [address] [place], [place] [id number] [employer] Worker: Jacob Campos MD Platelets (Bld) [#/Vol] 378 10*3/uL Normal 140-[address] [facility] Comment on above: Performed By: #### C DP, CMPX, SED, LAC #### [facility] [address] [place] [address] [employer] Worker: Jacob Campos MD RBC (Bld) [#/Vol] 3.70 10*6/uL Low 4.0-5.[address] [facility] Comment on above: Performed By: #### C DP, CMPX, SED, LAC #### [facility] [address] [place] [address] [employer] Worker: Jacob Campos MD WBC (Bld) [#/Vol] 4.3 10*3/uL Normal 3.5-11.[address] [facility] Comment on above: Performed By: #### C DP, CMPX, SED, LAC #### [facility] [address] [place] [address] [employer] Worker: Jacob Campos MD Comp Metabolic Pr/rfx MGon 0 11-22-2021 (cont.) Normal [facility] Comment on above: Result Comment: Aver age GFR for 60-69 years old: 85 mL/min/1.73sq m Chronic Kidney Disease: <60 mL/min/1.73sq m Kidney failure: <15 mL/min/1.73sq m eGFR calculated using average adult body mass. Additional eGFR calculator available at: http://www.LeadCloud.SourceThought/multiple_crcl_2012.htm Performed By: #### C DP, CMPX, SED, LAC #### [facility] [address] [place] [address] [employer] Worker: Jacob Campos MD Albumin [Mass/Vol] 3.5 g/dL Normal 3.5-5.[address] [facility] Comment on above: Performed By: #### C DP, CMPX, SED, LAC #### [facility] [address] [place], [place] [phone] [employer] Worker: Jacob Campos MD Alkaline Phos 239 U/L High 35-[address] [facility] Comment on above: Performed By: #### C DP, CMPX, SED, LAC #### [facility] [address] [place], [place] [phone] [employer] Worker: Jacob Campos MD ALT [Catalytic activity/Vol] 23 U/L Normal 5-[address] [facility] Comment on above: Performed By: #### C DP, CMPX, SED, LAC #### [facility] [address] [place], [place] [id number] [employer] Worker: Jacob Campos MD Anion gap [Moles/Vol] 11 mmol/L Normal 9-17 [facility] Comment on above: Performed By: #### C DP, CMPX, SED, LAC #### [facility] [address] [place], [place] [phone] [employer] Worker: Jacob Campos MD AST [Catalytic activity/Vol] 21 U/L Normal <[address] [facility] Comment on above: Performed By: #### C DP, CMPX, SED, LAC #### [facility] [address] [place], [place] [id number] [employer] Worker: Jacob Campos MD Bilirubin [Mass/Vol] 0.27 mg/dL Low 0.30-1.20 [facility] Comment on above: Performed By: #### C DP, CMPX, SED, LAC #### [facility] [address] [place], [place] [id number] [employer] Worker: Jacob Campos MD BUN/CRE Ratio 22 High 9-[address] [facility] Comment on above: Performed By: #### C DP, CMPX, SED, LAC #### [facility] [address] [place], [place] [id number] [employer] Worker: Jacob Campos MD Calcium [Mass/Vol] 9.5 mg/dL Normal 8.6-10.[address] [facility] Comment on above: Performed By: #### C DP, CMPX, SED, LAC #### [facility] [address] [place] [id number] [employer] Worker: Jacob Campos MD Chloride [Moles/Vol] 102 mmol/L Normal 98-107 [facility] Comment on above: Performed By: #### C DP, CMPX, SED, LAC #### [facility] [address] [place] [id number] [employer] Worker: Jacob Campos MD CO2 [Moles/Vol] 26 mmol/L Normal 20-[address] [facility] Comment on above: Performed By: #### C DP, CMPX, SED, LAC #### [facility] [address] [place] [id number] [employer] Worker: Jacob Campos MD Creatinine [Mass/Vol] 0.58 mg/dL Normal 0.50-0.90 [facility] Comment on above: Performed By: #### C DP, CMPX, SED, LAC #### [facility] [address] [place] [id number] [employer] Worker: Jacob Campos MD GFR, Amer >60 Normal >[address] [facility] Comment on above: Performed By: #### C DP, CMPX, SED, LAC #### [facility] [address] [place] [address] [employer] Worker: Jacob Campos MD GFR,non Amer >60 Normal >60 [facility] Comment on above: Performed By: #### C DP, CMPX, SED, LAC #### [facility] [address] [place] [phone] [employer] Worker: Jacob Campos MD Glucose [Mass/Vol] 109 mg/dL High 70-[address] [facility] Comment on above: Performed By: #### C DP, CMPX, SED, LAC #### [facility] [address] [place], [place] [id number] [employer] Worker: Jacob Campos MD Potassium [Moles/Vol] 3.7 mmol/L Normal 3.7-5.3 [facility] Comment on above: Performed By: #### C DP, CMPX, SED, LAC #### [facility] [address] [place] [address] [employer] Worker: Jacob Campos MD Protein [Mass/Vol] 7.0 g/dL Normal 6.4-8.[address] [facility] Comment on above: Performed By: #### C DP, CMPX, SED, LAC #### [facility] [address] [place] [address] [employer] Worker: Jacob Campos MD Sodium [Moles/Vol] 139 mmol/L Normal 135-[address] [facility] Comment on above: Performed By: #### C DP, CMPX, SED, LAC #### [facility] [address] [place] [id number] [employer] Worker: Jacob Campos MD Urea nitrogen [Mass/Vol] 13 mg/dL Normal 8-[address] [facility] Comment on above: Performed By: #### C DP, CMPX, SED, LAC #### [facility] [address] [place] [address] [employer] Worker: Jacob Campos MD Lactic Acidon 11-22-2021 Lactate [Moles/Vol] 0.7 mmol/L Normal 0.5-2.[address] [facility] Comment on above: Performed By: #### C DP, CMPX, SED, LAC #### [facility] [address] [place] [address] [employer] Worker: Jacob Campos MD Sedimentation Rateon 022 Sedimentation Rate 48 mm High 0-[address] [facility] Comment on above: Performed By: #### C DP, CMPX, SED, LAC #### [facility] [address] [place] [address] [employer] Worker: Jacob Campos MD Urinalysis, Routineon 2021 Bilirubin, SemiQt,Ur Negative Normal NEG [facility] Comment on above: Performed By: #### U A #### [facility] [address] [place], [place] [id number] [employer] Worker: Jacob Campos MD Blood, Urine Negative Normal NEG [facility] Comment on above: Performed By: #### U A #### [facility] [address] [place] [address] [employer] Worker: Jacob Campos MD Clarity (U) Clear Normal CLEAR [facility] Comment on above: Performed By: #### U A #### [facility] [address] [place], [place] [id number] [employer] Worker: Jacob Campos MD Color (U) Yellow Normal YEL [facility] Comment on above: Performed By: #### U A #### [facility] [address] [place], [place] [phone] [employer] Worker: Jacob Campos MD Comment Normal [facility] Comment on above: Performed By: #### U A #### [facility] [address] [place], [place] [phone] [employer] Worker: Jacob Campos MD Glucose Ql (U) Negative Normal NEG [facility] Comment on above: Performed By: #### U A #### [facility] [address] [place] [address] [employer] Worker: Jacob Campos MD Ketones Ql (U) Negative Normal NEG [facility] Comment on above: Performed By: #### U A #### [facility] [address] [place], [place] [phone] [employer] Worker: Jacob Campos MD Leukocyte esterase Test strip Ql (U) Negative Normal NEG [facility] Comment on above: Performed By: #### U A #### [facility] [address] [place], [place] [phone] [employer] Worker: Jacob Campos MD Nitrite,Ur Negative Normal NEG [facility] Comment on above: Performed By: #### U A #### [facility] [address] [place], [place] [id number] [employer] Worker: Jacob Campos MD PH,Ur 6.5 Normal 5.0-8.[address] [facility] Comment on above: Performed By: #### U A #### [facility] [address] [place], [place] [phone] [employer] Worker: Jacob Campos MD Protein Ql (U) Negative Normal NEG [facility] Comment on above: Performed By: #### U A #### [facility] [address] [place], [place] [phone] [employer] Worker: Jacob Campos MD Spec. [place],Ur 1.015 Normal 1.005-1.[address] [facility] Comment on above: Performed By: #### U A #### [facility] [address] [place], [place] [id number] [employer] Worker: Jacob Campos MD Urobilinogen,Ur Normal Normal NORM [facility] Comment on above: Performed By: #### U A #### [facility] [address] [place], [place] [phone] [employer] Worker: Jacob Campos MD Basic Metabolic Panelon Calcium [Mass/Vol] 9.4 mg/dL Normal 8.2-10.2 [facility] Comment on above: Performed By: #### C BC, BMP #### [facility] [address] [place] [address] [place] Chloride [Moles/Vol] 101 mmol/L Normal 95-114 [facility] Comment on above: Performed By: #### C BC, BMP #### [facility] [address] [place] [address] [place] CO2 [Moles/Vol] 26.3 mmol/L Normal 22.0-30.0 [facility] Comment on above: Performed By: #### C BC, BMP #### [facility] [address] Creatinine [Mass/Vol] 0.72 mg/dL Normal 0.44-1.03 [facility] Comment on above: Performed By: #### C BC, BMP #### [facility] [address] [place] [address] [place] Creatinine Clr Calc Pharmacy 76.81 [facility] Comment on above: Result Comment: PERF ORMED BY: [place] [address] PATHOLOGIST [employer] OPERATOR CLAIRE ANTHONY M.D. Performed By: #### C BC, BMP #### [facility] [address] Estimated GFR ( Damon > 60 [facility] Comment on above: Result Comment: GFR estimated reference range: According to KDOQI guidelines, <60 ml/min/1.73m2 is sufficient to diagnose a patient with chronic kidney disease. Performed By: #### C BC, BMP #### [address] Estimated GFR (Non- Am > 60 [facility] Comment on above: Performed By: #### C BC, BMP #### [facility] [address] [place] [address] [place] Glucose [Mass/Vol] 104 mg/dL High 70-100 [facility] [facility] Comment on above: Result Comment: [place] Glucose Reference Range is dependent on time and content of last meal. Glucose of more than 200 mg/dL in a nonstressed, ambulatory subject supports the diagnosis of Diabetes Mellitus. ADA recommended reference range Performed By: #### C BC, BMP #### [facility] [address] [place] [address] [place] Potassium [Moles/Vol] 3.8 mmol/L Normal 3.5-5.1 [facility] Comment on above: Performed By: #### C BC, BMP #### [facility] [address] Sodium [Moles/Vol] 138 mmol/L Normal 136-146 [facility] Comment on above: Performed By: #### C BC, BMP #### [facility] [address] Urea nitrogen [Mass/Vol] 13 mg/dL Normal 9-23 [facility] Comment on above: Performed By: #### C BC, BMP #### [facility] [address] CBC with Diffon 11-21-2021 Abs.Imm.Granulocyte NOT REPORTED Normal 0.00-0.30 [facility] Comment on above: Performed By: #### C DP, CMPX, SED, LAC #### [facility] [address] [place] [address] Sheet Metal Production Worker: Jacob Campos MD Immature Granulocyte NOT REPORTED Normal 0 [facility] Comment on above: Performed By: #### C DP, CMPX, SED, LAC #### [facility] [address] [place] [address] Sheet Metal Production Worker: Jacob Campos MD MPV NOT REPORTED Normal 6.0-12.[address] [facility] Comment on above: Performed By: #### C DP, CMPX, SED, LAC #### [facility] [address] [place] [id number] Sheet Metal Production Worker: Jacob Campos MD NRBC Automated NOT REPORTED Normal [facility] Comment on above: Performed By: #### C DP, CMPX, SED, LAC #### [facility] [address] [place] [id number] Sheet [employer] Worker: Jacob Campos MD Platelet Comment NOT REPORTED Normal [facility] Comment on above: Performed By: #### C DP, CMPX, SED, LAC #### [facility] [address] [place], [place] [id number] [employer] Metal Production Worker: Jacob Campos MD RBC morphology finding Nom (Bld) NOT REPORTED Normal [facility] Comment on above: Performed By: #### C DP, CMPX, SED, LAC #### [facility] [address] [place] [id number] Sheet Metal [employer] Worker: Jacob Campos MD WBC Morphology NOT REPORTED Normal [facility] Comment on above: Performed By: #### C DP, CMPX, SED, LAC #### [facility] [address] [place] [id number] [employer] Worker: Jacob Campos MD Comp Metabolic Pr/rfx MGon 0 11-21-2021 Albumin/Glob Ratio NOT REPORTED Normal 1.0-2.5 [facility] Comment on above: Performed By: #### C DP, CMPX, SED, LAC #### [facility] [address] [place] [address] Sheet Metal Production Worker: Jacob Campos MD Staging: NOT REPORTED Normal [facility] Comment on above: Performed By: #### C DP, CMPX, SED, LAC #### [facility] [address] [place] [address] Sheet Metal [employer] Worker: Jacob Campos MD Complete Blood Count Auto Di ffon 11-21-2021 Basophils (Bld) [#/Vol] 0.0 10*3/uL Normal 0.0-0.2 [facility] Comment on above: Result Comment: PERF ORMED BY: [place] [id number] PATHOLOGIST [employer] OPERATOR CLAIRE ANTHONY M.D. Performed By: #### C BC, BMP #### [place] [address] [place] Basophils/100 WBC (Bld) 0.7 % Normal . [facility] Comment on above: Performed By: #### C BC, BMP #### [facility] [address] [place] [address] [place] Eosinophils (Bld) [#/Vol] 0.1 10*3/uL Normal 0.0-0.45 [facility] Comment on above: Performed By: #### C BC, BMP #### [facility] [address] [place] [address] [place] Eosinophils/100 WBC (Bld) 2.8 % Normal . [facility] Comment on above: Performed By: #### C BC, BMP #### [facility] [address] Erythrocyte distribution width (RBC) [Ratio] 13.2 % Normal 11.9-15.3 [facility] Comment on above: Performed By: #### C BC, BMP #### [facility] [address] Hematocrit (Bld) [Volume fraction] 35.7 % Normal 34.0-46.4 [facility] Comment on above: Performed By: #### C BC, BMP #### [facility] [address] [place] [address] [place] Hemoglobin (Bld) [Mass/Vol] 11.9 g/dL Normal 11.8-15.4 [facility] Comment on above: Performed By: #### C BC, BMP #### [facility] [address] [place] [address] [place] Lymphocytes (Bld) [#/Vol] 0.8 10*3/uL Low 1.00-4.8 [facility] Comment on above: Performed By: #### C BC, BMP #### [facility] [address] [place] [id number] [place] Lymphocytes/100 WBC (Bld) 16.7 % Normal . [facility] Comment on above: Performed By: #### C BC, BMP #### [facility] [address] [place] [id number] [facility] MCH (RBC) [Entitic mass] 30.2 pg Normal 24.7-34.3 [facility] Comment on above: Performed By: #### C BC, BMP #### [facility] [address] [place] [address] [place] MCV (RBC) [Entitic vol] 90.6 fL Normal 80-100 [facility] Comment on above: Performed By: #### C BC, BMP #### [facility] [address] Mean Corpuscular HGB Conc 33.3 g/dL Normal 32.0-35.0 [facility] Comment on above: Performed By: #### C BC, BMP #### [facility] [address] [place] [address] [place] Monocytes (Bld) [#/Vol] 0.4 10*3/uL Normal 0.0-0.8 [facility] Comment on above: Performed By: #### C BC, BMP #### [facility] [address] [place] [address] [place] Monocytes/100 WBC (Bld) 9.1 % Normal . [facility] Comment on above: Performed By: #### C BC, BMP #### [facility] [address] [place] [address] [place] Neutrophils (Bld) [#/Vol] 3.4 10*3/uL Normal 1.8-7.7 [facility] Comment on above: Performed By: #### C BC, BMP #### [facility] [address] [place] [address] [place] Neutrophils/100 WBC (Bld) 70.7 % Normal . [facility] Comment on above: Performed By: #### C BC, BMP #### [facility] [address] [place] [address] [place] Nucleated RBC/100 WBC (Bld) [Ratio] 0.0 % Normal 0-0.5 [facility] Comment on above: Performed By: #### C BC, BMP #### [facility] [address] [place] [address] [place] Platelet mean volume (Bld) [Entitic vol] 6.9 fL Normal 6.3-10.7 [facility] Comment on above: Performed By: #### C BC, BMP #### [facility] [address] [place] [address] [place] Platelets (Bld) [#/Vol] 423 10*3/uL Normal 150-450 [facility] Comment on above: Performed By: #### C BC, BMP #### [facility] [address] RBC (Bld) [#/Vol] 3.94 10*6/uL Normal 3.60-5.00 [facility] Comment on above: Performed By: #### C BC, BMP #### [facility] [address] WBC (Bld) [#/Vol] 4.8 10*3/uL Normal 4.5-11.0 [facility] Comment on above: Performed By: #### C BC, BMP #### [place] [address] [place] Dipstick and Microscopicon 0 11-21-2021 Appearance (U) Clear Normal Clear [facility] Comment on above: Order Comment: Name Collection Type:: Clean-Voided Midstream Performed By: #### C BC, BMP #### [place] [address] [place] Bacteria,Urine None Seen Normal None Seen [facility] Comment on above: Order Comment: Name Collection Type:: Clean-Voided Midstream Performed By: #### C BC, BMP #### [place] [address] [place] Bilirubin,Urine Negative Normal Negative [facility] Comment on above: Order Comment: Name Collection Type:: Clean-Voided Midstream Performed By: #### C BC, BMP #### [facility] [address] [place] [address] [place] Color (U) Yellow Normal Yellow [facility] Comment on above: Order Comment: Name Collection Type:: Clean-Voided Midstream Performed By: #### C BC, BMP #### [place] [address] [place] Glucose Ql (U) Normal Normal Normal [facility] Comment on above: Order Comment: Name Collection Type:: Clean-Voided Midstream Performed By: #### C BC, BMP #### [facility] [address] [place] [address] Hyaline Casts,Urine 0-8 Normal 0-8 [facility] Comment on above: Order Comment: Name Collection Type:: Clean-Voided Midstream Result Comment: PERF ORMED BY: [place] [address] PATHOLOGIST [employer] OPERATOR CLAIRE ANTHONY M.D. Performed By: #### C BC, BMP #### [address] Ketones Ql (U) Negative Normal Negative [facility] Comment on above: Order Comment: Name Collection Type:: Clean-Voided Midstream Performed By: #### C BC, BMP #### [address] Leukocyte esterase Test strip Ql (U) 1+ High Negative [facility] Comment on above: Order Comment: Name Collection Type:: Clean-Voided Midstream Performed By: #### C BC, BMP #### [place] [address] [place] Nitrite,Urine Negative Normal Negative [facility] Comment on above: Order Comment: Name Collection Type:: Clean-Voided Midstream Performed By: #### C BC, BMP #### [place] [address] [place] Occult Blood,Urine Negative Normal Negative [facility] Comment on above: Order Comment: Name Collection Type:: Clean-Voided Midstream Result Comment: PERF ORMED BY: [place] [address] PATHOLOGIST [employer] M[employer] OPERATOR CLAIRE ANTHONY M.D. Performed By: #### C BC, BMP #### [facility] [address] [place] [address] [place] pH (U) 6.5 [pH] Normal 5.0-9.0 [facility] Comment on above: Order Comment: Name Collection Type:: Clean-Voided Midstream Performed By: #### C BC, BMP #### [facility] [address] [place] [address] Protein,Urine Negative Normal Negative [facility] Comment on above: Order Comment: Name Collection Type:: Clean-Voided Midstream Performed By: #### C BC, BMP #### [address] RBC,Urine 1-2 Normal 0-4 [facility] Comment on above: Order Comment: Name Collection Type:: Clean-Voided Midstream Performed By: #### C BC, BMP #### [address] Specificy [place],Urine 1.014 Normal 1.001-1.030 [facility] Comment on above: Order Comment: Name Collection Type:: Clean-Voided Midstream Performed By: #### C BC, BMP #### [address] Squamous Epithelial Cell,Urine None Seen Normal 0-2 [facility] Comment on above: Order Comment: Name Collection Type:: Clean-Voided Midstream Performed By: #### C BC, BMP #### [address] Urobilinogen,Urine Normal Normal Normal [facility] Comment on above: Order Comment: Name Collection Type:: Clean-Voided Midstream Performed By: #### C BC, BMP #### [facility] [address] [place] [address] [place] WBC,Urine 1-2 Normal 0-4 [facility] Comment on above: Order Comment: Name Collection Type:: Clean-Voided Midstream Performed By: #### C BC, BMP #### [address] Complete Blood Count Auto Di ffon 11-04-2021 Basophils (Bld) [#/Vol] 0.0 10*3/uL Normal 0.0-0.2 [facility] Comment on above: Result Comment: PERF ORMED BY: [place] [address] PATHOLOGIST [employer] OPERATOR CLAIRE ANTHONY M.D. Performed By: #### C BC, BMP #### [facility] [address] Basophils/100 WBC (Bld) 0.1 % Normal . [facility] Comment on above: Performed By: #### C BC, BMP #### [facility] [address] [place] [address] [place] Eosinophils (Bld) [#/Vol] 0.1 10*3/uL Normal 0.0-0.45 [facility] Comment on above: Performed By: #### C BC, BMP #### [facility] [address] Eosinophils/100 WBC (Bld) 1.3 % Normal . [facility] Comment on above: Performed By: #### C BC, BMP #### [facility] [address] Erythrocyte distribution width (RBC) [Ratio] 13.0 % Normal 11.9-15.3 [facility] Comment on above: Performed By: #### C BC, BMP #### [facility] [address] Hematocrit (Bld) [Volume fraction] 27.5 % Low 34.0-46.4 [facility] Comment on above: Performed By: #### C BC, BMP #### [facility] [address] [place] [address] [place] Hemoglobin (Bld) [Mass/Vol] 9.3 g/dL Low 11.8-15.4 [facility] Comment on above: Performed By: #### C BC, BMP #### [facility] [address] [place] [address] [place] Lymphocytes (Bld) [#/Vol] 0.5 10*3/uL Low 1.00-4.8 [facility] Comment on above: Performed By: #### C BC, BMP #### [facility] [address] [place] [address] [place] Lymphocytes/100 WBC (Bld) 6.3 % Normal . [facility] Comment on above: Performed By: #### C BC, BMP #### [facility] [address] MCH (RBC) [Entitic mass] 31.1 pg Normal 24.7-34.3 [facility] Comment on above: Performed By: #### C BC, BMP #### [facility] [address] MCV (RBC) [Entitic vol] 92.0 fL Normal 80-100 [facility] Comment on above: Performed By: #### C BC, BMP #### [facility] [address] Mean Corpuscular HGB Conc 33.8 g/dL Normal 32.0-35.0 [facility] Comment on above: Performed By: #### C BC, BMP #### [facility] [address] Monocytes (Bld) [#/Vol] 0.8 10*3/uL Normal 0.0-0.8 [facility] Comment on above: Performed By: #### C BC, BMP #### [facility] [address] [place] [address] [place] Monocytes/100 WBC (Bld) 10.8 % Normal . [facility] Comment on above: Performed By: #### C BC, BMP #### [facility] [address] [place] [address] [place] Neutrophils (Bld) [#/Vol] 5.9 10*3/uL Normal 1.8-7.7 [facility] Comment on above: Performed By: #### C BC, BMP #### [facility] [address] [place] [address] [place] Neutrophils/100 WBC (Bld) 81.5 % Normal . [facility] Comment on above: Performed By: #### C BC, BMP #### [facility] [address] Nucleated RBC/100 WBC (Bld) [Ratio] 0.0 % Normal 0-0.5 [facility] Comment on above: Performed By: #### C BC, BMP #### [facility] [address] Platelet mean volume (Bld) [Entitic vol] 7.4 fL Normal 6.3-10.7 [facility] Comment on above: Performed By: #### C BC, BMP #### [facility] [address] Platelets (Bld) [#/Vol] 135 10*3/uL Low 150-450 [facility] Comment on above: Performed By: #### C BC, BMP #### [facility] [address] RBC (Bld) [#/Vol] 2.99 10*6/uL Low 3.60-5.00 [facility] Comment on above: Performed By: #### C BC, BMP #### [facility] [address] WBC (Bld) [#/Vol] 7.3 10*3/uL Normal 4.5-11.0 [facility] Comment on above: Performed By: #### C BC, BMP #### [address] Electrolyteson 11-04-2021 Chloride [Moles/Vol] 106 mmol/L Normal 95-114 [facility] Comment on above: Performed By: #### C BC, BMP #### [address] CO2 [Moles/Vol] 25.2 mmol/L Normal 22.0-30.0 [facility] Comment on above: Result Comment: PERF ORMED BY: [place] [address] PATHOLOGIST [employer] OPERATOR CLAIRE ANTHONY M.D. Performed By: #### C BC, BMP #### [address] Potassium [Moles/Vol] 3.7 mmol/L Normal 3.5-5.1 [facility] Comment on above: Performed By: #### C BC, BMP #### [address] Sodium [Moles/Vol] 137 mmol/L Normal 136-146 [facility] Comment on above: Performed By: #### C BC, BMP #### [address] Complete Blood Count Auto Di ffon 11-03-2021 Basophils (Bld) [#/Vol] 0.0 10*3/uL Normal 0.0-0.2 [facility] Comment on above: Result Comment: PERF ORMED BY: [place] [address] PATHOLOGIST [employer] OPERATOR CLAIRE ANTHONY M.D. Performed By: #### C BC, BMP #### [address] Basophils/100 WBC (Bld) 0.1 % Normal . [facility] Comment on above: Performed By: #### C BC, BMP #### [address] Eosinophils (Bld) [#/Vol] 0.0 10*3/uL Normal 0.0-0.45 [facility] Comment on above: Performed By: #### C BC, BMP #### [address] Eosinophils/100 WBC (Bld) 0.3 % Normal . [facility] Comment on above: Performed By: #### C BC, BMP #### [address] Erythrocyte distribution width (RBC) [Ratio] 12.8 % Normal 11.9-15.3 [facility] Comment on above: Performed By: #### C BC, BMP #### [address] Hematocrit (Bld) [Volume fraction] 29.5 % Low 34.0-46.4 [facility] Comment on above: Performed By: #### C BC, BMP #### [address] Hemoglobin (Bld) [Mass/Vol] 9.9 g/dL Low 11.8-15.4 [facility] Comment on above: Performed By: #### C BC, BMP #### [address] Lymphocytes (Bld) [#/Vol] 0.5 10*3/uL Low 1.00-4.8 [facility] Comment on above: Performed By: #### C BC, BMP #### [address] Lymphocytes/100 WBC (Bld) 7.4 % Normal . [facility] Comment on above: Performed By: #### C BC, BMP #### [address] MCH (RBC) [Entitic mass] 30.9 pg Normal 24.7-34.3 [facility] Comment on above: Performed By: #### C BC, BMP #### [address] MCV (RBC) [Entitic vol] 92.1 fL Normal 80-100 [facility] Comment on above: Performed By: #### C BC, BMP #### [address] Mean Corpuscular HGB Conc 33.6 g/dL Normal 32.0-35.0 [facility] Comment on above: Performed By: #### C BC, BMP #### [place] [address] [place] Monocytes (Bld) [#/Vol] 0.7 10*3/uL Normal 0.0-0.8 [facility] Comment on above: Performed By: #### C BC, BMP #### [place] [address] [place] Monocytes/100 WBC (Bld) 10.0 % Normal . [facility] Comment on above: Performed By: #### C BC, BMP #### [place] [address] [place] Neutrophils (Bld) [#/Vol] 5.8 10*3/uL Normal 1.8-7.7 [facility] Comment on above: Performed By: #### C SANTANA, BMP #### [facility] [address] Neutrophils/100 WBC (Bld) 82.2 % Normal . [facility] Comment on above: Performed By: #### C SANTANA, BMP #### [facility] [address] Nucleated RBC/100 WBC (Bld) [Ratio] 0.0 % Normal 0-0.5 [facility] Comment on above: Performed By: #### C SANTANA, BMP #### [facility] [address] Platelet mean volume (Bld) [Entitic vol] 8.1 fL Normal 6.3-10.7 [facility] Comment on above: Performed By: #### C SANTANA, BMP #### [facility] [address] Platelets (Bld) [#/Vol] 153 10*3/uL Normal 150-450 [facility] Comment on above: Performed By: #### C SANTANA, BMP #### [address] RBC (Bld) [#/Vol] 3.21 10*6/uL Low 3.60-5.00 [facility] Comment on above: Performed By: #### C SANTANA, BMP #### [facility] [address] WBC (Bld) [#/Vol] 7.0 10*3/uL Normal 4.5-11.0 [facility] Comment on above: Performed By: #### C SANTANA, BMP #### [facility] [address] Electrolyteson 11-03-2021 Chloride [Moles/Vol] 104 mmol/L Normal 95-114 [facility] Comment on above: Performed By: #### C SANTANA, BMP #### [facility] [address] CO2 [Moles/Vol] 28.5 mmol/L Normal 22.0-30.0 [facility] Comment on above: Result Comment: PERF ORMED BY: [place] [address] PATHOLOGIST [employer] OPERATOR CLAIRE ANTHONY M.D. Performed By: #### C BC, BMP #### [facility] [address] [place] [address] Potassium [Moles/Vol] 4.2 mmol/L Normal 3.5-5.1 [facility] Comment on above: Performed By: #### Salvatore BC, BMP #### [address] Sodium [Moles/Vol] 139 mmol/L Normal 136-146 [facility] Comment on above: Performed By: #### Salvatore DILLON, BMP #### [address] 11-02-2021 L -- ---- Specimen: [id number] Received: 11/02/21 Status: GARRETT Campuzano Num: [id number] Spec Type: Surgical Subm Dr: Dylan Gatica Jr, DO Tissues: A Gross Only (BONE/TISSUE RT HIP) Procedures: Level 1 Gross ---- Patient Age/Sex Location Account Attending Physician ---- Isabel Waddell 61/F 4N [id number] Dylan Gatica Jr, DO ---- SPEC NUM: [id number] RECD: 11/02/21 STATUS: GARRETT MAGANAMely NUM: [id number] FRNACISCA: 11/02/21 [facility] DR: Dylan Gatica Jr, DO ENTERED: 11/02/21 [facility] DR: MARTIN TYPE: Surgical DEPT: S ORDERED: [...] only. (SM/JS) Microscopic Description Gross examination only. [id number] ---- ---- Specimen: [id number] Received: 11/02/21 Status: GARRETT Campuzano Num: [id number] Spec Type: Surgical Subm Dr: Dylan Gatica Jr, DO Tissues: A Gross Only (BONE/TISSUE RT HIP) Procedures: Level 1 Gross ---- Patient: Isabel Waddell [id number] (Continued) ---- Signed (signature on file) Claire Anthony MD 11/02/21 6543 [facility] LeukoReduced RBCon LeukoReduced RBC READY Normal [facility] Type and Screenon 11-02-2021 ABO and Rh group Nom (Bld) Blood group O Rh(D) positive [facility] Comment on above: Order Comment: Trans fuse now? N XR low pelvis w/RT x-table h ipon 11-02-2021 XR low pelvis w/RT x-table hip [facility] [place] [address] XRay Report Signed Patient: Isabel Waddell MR#: [id number] : 1960 Acct:[id number] Age/Sex: 61 / F ADM Date: 11/02/21 Loc: Room: 8G5278-5 Type: [facility] Attending Dr: Dylan Gatica Jr, DO Ordering [...] Shiva Stafford M.D.11/02/2021 2:41 PM Dictation Location: [place] [address] Transcribed By: [facility] 11/02/21 144 Dictated By: Shiva Stafford II, MD 11/02/211439 Signed By: 11/02/211440 [facility] COVID[facility] SARS-CoV-2 (COVID-19) RNA ANGELA+probe Ql (Unsp spec) Negative Normal Negative [facility] Comment on above: Order Comment: Healt hcare Worker?: N Result Comment: Testing for SARS-CoV-2 by RT-PCR This test was developed and its performance characteristics determined by [employer] ([employer] and validated at the [facility]. This test has not been FDA [...] is terminated or revoked sooner. PERFORMED BY: [place] [address] PATHOLOGIST B[employer] M[employer] OPERATOR CLAIRE ANTHONY M.D. Performed By: #### C BC, BMP #### [address] Basic Metabolic Panelon 11-2 Calcium [Mass/Vol] 9.3 mg/dL Normal 8.2-10.2 [facility] Comment on above: Result Comment: PERF ORMED BY: [place] [address] PATHOLOGIST [employer] M[employer] OPERATOR CLAIRE ANTHONY M.D. Performed By: #### C BC, BMP #### [place] [id number] [facility] Chloride [Moles/Vol] 104 mmol/L Normal 95-114 [facility] Comment on above: Performed By: #### C BC, BMP #### [place] [id number] [place] CO2 [Moles/Vol] 28.3 mmol/L Normal 22.0-30.0 [facility] Comment on above: Performed By: #### C BC, BMP #### [facility] [address] Creatinine [Mass/Vol] 0.61 mg/dL Normal 0.44-1.03 [facility] Comment on above: Performed By: #### C BC, BMP #### [address] Estimated GFR ( Damon > 60 [facility] Comment on above: Result Comment: GFR estimated reference range: According to KDOQI guidelines, <60 ml/min/1.73m2 is sufficient to diagnose a patient with chronic kidney disease. Performed By: #### C BC, BMP #### [address] Estimated GFR (Non- Am > 60 [facility] Comment on above: Performed By: #### C BC, BMP #### [address] Glucose [Mass/Vol] 100 mg/dL Normal 70-100 [facility] Comment on above: Result Comment: Follansbee om Glucose Reference Range is dependent on time and content of last meal. Glucose of more than 200 mg/dL in a nonstressed, ambulatory subject supports the diagnosis of Diabetes Mellitus. ADA recommended reference range Performed By: #### C BC, BMP #### [address] Potassium [Moles/Vol] 4.7 mmol/L Normal 3.5-5.1 [facility] Comment on above: Performed By: #### C BC, BMP #### [facility] [address] [place] [id number] [facility] Sodium [Moles/Vol] 140 mmol/L Normal 136-146 [facility] Comment on above: Performed By: #### C BC, BMP #### [address] Urea nitrogen [Mass/Vol] 17 mg/dL Normal 9-23 [facility] Comment on above: Performed By: #### C BC, BMP #### [facility] [address] [place] [address] Complete Blood Count Auto Di ffon 10-15-2021 Basophils (Bld) [#/Vol] 0.0 10*3/uL Normal 0.0-0.2 [facility] Comment on above: Result Comment: PERF ORMED BY: [place] [address] PATHOLOGIST [employer] OPERATOR CLAIRE ANTHONY M.D. Performed By: #### C BC, BMP #### [address] Basophils/100 WBC (Bld) 0.4 % Normal . [facility] Comment on above: Performed By: #### C BC, BMP #### [address] Eosinophils (Bld) [#/Vol] 0.1 10*3/uL Normal 0.0-0.45 [facility] Comment on above: Performed By: #### C BC, BMP #### [address] Eosinophils/100 WBC (Bld) 2.1 % Normal . [facility] Comment on above: Performed By: #### C BC, BMP #### [address] Erythrocyte distribution width (RBC) [Ratio] 13.0 % Normal 11.9-15.3 [facility] Comment on above: Performed By: #### C BC, BMP #### [address] Hematocrit (Bld) [Volume fraction] 36.8 % Normal 34.0-46.4 [facility] Comment on above: Performed By: #### C BC, BMP #### [address] Hemoglobin (Bld) [Mass/Vol] 12.4 g/dL Normal 11.8-15.4 [facility] Comment on above: Performed By: #### C BC, BMP #### [facility] [address] [place] [address] [place] Lymphocytes (Bld) [#/Vol] 0.5 10*3/uL Low 1.00-4.8 [facility] Comment on above: Performed By: #### C BC, BMP #### [facility] [address] Lymphocytes/100 WBC (Bld) 18.8 % Normal . [facility] Comment on above: Performed By: #### C BC, BMP #### [facility] [address] MCH (RBC) [Entitic mass] 31.3 pg Normal 24.7-34.3 [facility] Comment on above: Performed By: #### C BC, BMP #### [address] MCV (RBC) [Entitic vol] 92.8 fL Normal 80-100 [facility] Comment on above: Performed By: #### C BC, BMP #### [address] Mean Corpuscular HGB Conc 33.7 g/dL Normal 32.0-35.0 [facility] Comment on above: Performed By: #### C BC, BMP #### [place] [address] [place] Monocytes (Bld) [#/Vol] 0.3 10*3/uL Normal 0.0-0.8 [facility] Comment on above: Performed By: #### C BC, BMP #### [place] [address] [place] Monocytes/100 WBC (Bld) 10.8 % Normal . [facility] Comment on above: Performed By: #### C BC, BMP #### [address] Neutrophils (Bld) [#/Vol] 1.9 10*3/uL Normal 1.8-7.7 [facility] Comment on above: Performed By: #### C BC, BMP #### [facility] [address] Neutrophils/100 WBC (Bld) 67.9 % Normal . [facility] Comment on above: Performed By: #### C BC, BMP #### [facility] [address] [place] [address] [place] Nucleated RBC/100 WBC (Bld) [Ratio] 0.1 % Normal 0-0.5 [facility] Comment on above: Performed By: #### C BC, BMP #### [address] Platelet mean volume (Bld) [Entitic vol] 7.4 fL Normal 6.3-10.7 [facility] Comment on above: Performed By: #### C BC, BMP #### [address] Platelets (Bld) [#/Vol] 198 10*3/uL Normal 150-450 [facility] Comment on above: Performed By: #### C BC, BMP #### [place] [address] [place] RBC (Bld) [#/Vol] 3.97 10*6/uL Normal 3.60-5.00 [facility] Comment on above: Performed By: #### C BC, BMP #### [place] [address] [place] WBC (Bld) [#/Vol] 2.8 10*3/uL Low 4.5-11.0 [facility] Comment on above: Performed By: #### C BC, BMP #### [place] [address] [place] Dipstick and Microscopicon 1 12-15-2020 Appearance (U) Turbid Critically abnormal Clear [facility] Comment on above: Order Comment: Name Collection Type:: Clean-Voided Midstream Performed By: #### A DDONUAPLUS #### [place] [address] [place] Bacteria,Urine None Seen Normal None Seen [facility] Comment on above: Order Comment: Name Collection Type:: Clean-Voided Midstream Performed By: #### A DDONUAPLUS #### [facility] [address] [place] [address] [place] Bilirubin,Urine Negative Normal Negative [facility] Comment on above: Order Comment: Name Collection Type:: Clean-Voided Midstream Performed By: #### A DDONUAPLUS #### [facility] [address] [place] [address] [place] Color (U) Yellow Normal Yellow [facility] Comment on above: Order Comment: Name Collection Type:: Clean-Voided Midstream Performed By: #### A DDONUAPLUS #### [facility] [address] [place] [address] Glucose Ql (U) Normal Normal Normal [facility] Comment on above: Order Comment: Name Collection Type:: Clean-Voided Midstream Performed By: #### A DDONUAPLUS #### [place] [address] [place] Hyaline Casts,Urine None Seen Normal 0-8 [facility] Comment on above: Order Comment: Name Collection Type:: Clean-Voided Midstream Result Comment: PERF ORMED BY: [place] [address] PATHOLOGIST [employer] OPERATOR CLAIRE ANTHONY M.D. Performed By: #### A DDONUAPLUS #### [facility] [address] [place] [address] Ketones Ql (U) Negative Normal Negative [facility] Comment on above: Order Comment: Name Collection Type:: Clean-Voided Midstream Performed By: #### A DDONUAPLUS #### [facility] [address] [place] [address] [place] Leukocyte esterase Test strip Ql (U) 1+ High Negative [facility] Comment on above: Order Comment: Name Collection Type:: Clean-Voided Midstream Performed By: #### A DDONUAPLUS #### [facility] [address] [place] [address] [place] Nitrite,Urine Negative Normal Negative [facility] Comment on above: Order Comment: Name Collection Type:: Clean-Voided Midstream Performed By: #### A DDONUAPLUS #### [address] Occult Blood,Urine Negative Normal Negative [facility] Comment on above: Order Comment: Name Collection Type:: Clean-Voided Midstream Result Comment: PERF ORMED BY: [place] [address] PATHOLOGIST [employer] OPERATOR CLAIRE ANTHONY M.D. Performed By: #### A DDONUAPLUS #### [address] pH (U) 7.5 [pH] Normal 5.0-9.0 [facility] Comment on above: Order Comment: Name Collection Type:: Clean-Voided Midstream Performed By: #### A DDONUAPLUS #### [place] [address] [place] Protein,Urine Negative Normal Negative [facility] Comment on above: Order Comment: Name Collection Type:: Clean-Voided Midstream Performed By: #### A DDONUAPLUS #### [address] RBC,Urine 1-2 Normal 0-4 [facility] Comment on above: Order Comment: Name Collection Type:: Clean-Voided Midstream Performed By: #### A DDONUAPLUS #### [place] [address] [place] Specificy [place],Urine 1.017 Normal 1.001-1.030 [facility] Comment on above: Order Comment: Name Collection Type:: Clean-Voided Midstream Performed By: #### A DDONUAPLUS #### [place] [address] [place] Squamous Epithelial Cell,Urine None Seen Normal 0-2 [facility] Comment on above: Order Comment: Name Collection Type:: Clean-Voided Midstream Performed By: #### A DDONUAPLUS #### [address] Urobilinogen,Urine Normal Normal Normal [facility] Comment on above: Order Comment: Name Collection Type:: Clean-Voided Midstream Performed By: #### A DDONUAPLUS #### [facility] [address] [place] [address] WBC,Urine 3-4 Normal 0-4 [facility] Comment on above: Order Comment: Name Collection Type:: Clean-Voided Midstream Performed By: #### A DDONUAPLUS #### [facility] [address] [place] [address] PST Type and Screenon 2020 ABO and Rh group Nom (Bld) Blood group O Rh(D) positive Normal [facility] Comment on above: Order Comment: Date of Surgery: [id number] # of PRBC units on hold?: 2 Result Comment: PERF ORMED BY: [place] [address] PATHOLOGIST [employer] OPERATOR CLAIRE ANTHONY M.D. XR hip RT min 2V(w/wo pelvis )*on 10-15-2021 XR hip RT min 2V(w/wo pelvis)* [facility] Main [place] [address] [place] [address] XRay Report Signed Patient: Isabel Waddell MR#: [id number] : 1960 Acct:[id number] Age/Sex: 61 / F ADM Date: 10/15/21 Loc: Room: Type: [facility] Attending Dr: Dylan Gatica Jr, DO Ordering [...] PM Dictation Location: [facility] Transcribed By: [facility] 10/15/211420 Dictated By: Yusef Fernandez DO 10/15/211419 Signed By: 10/15/211420 [facility] XR tibia/fibula BIon 021 XR tibia/fibula BI [facility] [place] [address] XRay Report Signed Patient: Isabel Waddell MR#: [id number] : 1960 Acct:[id number] Age/Sex: 61 / F ADM Date: 08/22/21 Loc: ICXD Room: Type: [facility] Attending Dr: Dylan Gatica Jr, DO Ordering Provider: Dylan Gatica Jr, DO Date of Service: 08/22/21 XR/XR femur BI: PST ([id number]) XR/XR tibia/fibula BI: PST Copies to: Dylan [...] PM Dictation Location: [facility] Transcribed By: JULIO 08/22/21 151 Dictated By: Mckayla Rai MD 08/22/21 151 Signed By: 08/22/211516 [facility] Basic Metabolic Panelon 10-0 Calcium [Mass/Vol] 9.1 mg/dL Normal 8.2-10.2 [facility] Comment on above: Result Comment: PERF ORMED BY: [place] [address] PATHOLOGIST [employer] OPERATOR CLAIRE ANTHONY M.D. Performed By: #### C BC, BMP #### [facility] [address] [place] [address] Chloride [Moles/Vol] 102 mmol/L Normal 95-114 [facility] Comment on above: Performed By: #### C BC, BMP #### [address] CO2 [Moles/Vol] 27.8 mmol/L Normal 22.0-30.0 [facility] Comment on above: Performed By: #### C BC, BMP #### [address] Creatinine [Mass/Vol] 0.63 mg/dL Normal 0.44-1.03 [facility] Comment on above: Performed By: #### C BC, BMP #### [address] Estimated GFR ( Damon > 60 [facility] Comment on above: Result Comment: GFR estimated reference range: According to KDOQI guidelines, <60 ml/min/1.73m2 is sufficient to diagnose a patient with chronic kidney disease. Performed By: #### C BC, BMP #### [place] [address] [place] Estimated GFR (Non- Am > 60 [facility] Comment on above: Performed By: #### C BC, BMP #### [place] [address] [place] Glucose [Mass/Vol] 101 mg/dL High 70-100 [facility] Comment on above: Result Comment: [place] Glucose Reference Range is dependent on time and content of last meal. Glucose of more than 200 mg/dL in a nonstressed, ambulatory subject supports the diagnosis of Diabetes Mellitus. ADA recommended reference range Performed By: #### C BC, BMP #### [address] Potassium [Moles/Vol] 4.2 mmol/L Normal 3.5-5.1 [facility] Comment on above: Performed By: #### C BC, BMP #### [address] Sodium [Moles/Vol] 138 mmol/L Normal 136-146 [facility] Comment on above: Performed By: #### C BC, BMP #### [address] Urea nitrogen [Mass/Vol] 18 mg/dL Normal 9-23 [facility] Comment on above: Performed By: #### C BC, BMP #### [address] Complete Blood Count Auto Di ffon 08-20-2021 Basophils (Bld) [#/Vol] 0.0 10*3/uL Normal 0.0-0.2 [facility] Comment on above: Result Comment: PERF ORMED BY: [place] [address] PATHOLOGIST [employer] OPERATOR CLAIRE ANTHONY M.D. Performed By: #### C BC, BMP #### [place] [address] [place] Basophils/100 WBC (Bld) 0.1 % Normal . [facility] Comment on above: Performed By: #### C BC, BMP #### [place] [address] [place] Eosinophils (Bld) [#/Vol] 0.1 10*3/uL Normal 0.0-0.45 [facility] Comment on above: Performed By: #### C BC, BMP #### [place] [address] [place] Eosinophils/100 WBC (Bld) 2.5 % Normal . [facility] Comment on above: Performed By: #### C BC, BMP #### [address] Erythrocyte distribution width (RBC) [Ratio] 13.6 % Normal 11.9-15.3 [facility] Comment on above: Performed By: #### C BC, BMP #### [address] Hematocrit (Bld) [Volume fraction] 34.5 % Normal 34.0-46.4 [facility] Comment on above: Performed By: #### C BC, BMP #### [address] Hemoglobin (Bld) [Mass/Vol] 11.9 g/dL Normal 11.8-15.4 [facility] Comment on above: Performed By: #### C BC, BMP #### [address] Lymphocytes (Bld) [#/Vol] 0.6 10*3/uL Low 1.00-4.8 [facility] Comment on above: Performed By: #### C BC, BMP #### [address] Lymphocytes/100 WBC (Bld) 15.9 % Normal . [facility] Comment on above: Performed By: #### C BC, BMP #### [address] MCH (RBC) [Entitic mass] 31.3 pg Normal 24.7-34.3 [facility] Comment on above: Performed By: #### C BC, BMP #### [address] MCV (RBC) [Entitic vol] 90.5 fL Normal 80-100 [facility] Comment on above: Performed By: #### C BC, BMP #### [address] Mean Corpuscular HGB Conc 34.6 g/dL Normal 32.0-35.0 [facility] Comment on above: Performed By: #### C BC, BMP #### [address] [place] [address] [place] Monocytes (Bld) [#/Vol] 0.5 10*3/uL Normal 0.0-0.8 [facility] Comment on above: Performed By: #### C BC, BMP #### [facility] [address] [place] [address] [place] Monocytes/100 WBC (Bld) 13.2 % Normal . [facility] Comment on above: Performed By: #### C BC, BMP #### [facility] [address] [place] [address] [place] Neutrophils (Bld) [#/Vol] 2.7 10*3/uL Normal 1.8-7.7 [facility] Comment on above: Performed By: #### C SANTANA, BMP #### [facility] [address] [place] [address] [place] Neutrophils/100 WBC (Bld) 68.3 % Normal . [facility] Comment on above: Performed By: #### C SANTANA, BMP #### [facility] [address] [place] [address] [place] Nucleated RBC/100 WBC (Bld) [Ratio] 0.1 % Normal 0-0.5 [facility] Comment on above: Performed By: #### C SANTANA, BMP #### [place] [address] [place] Platelet mean volume (Bld) [Entitic vol] 7.8 fL Normal 6.3-10.7 [facility] Comment on above: Performed By: #### C BC, BMP #### [facility] [address] [place] [address] [place] Platelets (Bld) [#/Vol] 182 10*3/uL Normal 150-450 [facility] Comment on above: Performed By: #### C BC, BMP #### [facility] [address] [place] [address] [place] RBC (Bld) [#/Vol] 3.81 10*6/uL Normal 3.60-5.00 [facility] Comment on above: Performed By: #### C BC, BMP #### [facility] [address] WBC (Bld) [#/Vol] 4.0 10*3/uL Low 4.5-11.0 [facility] Comment on above: Performed By: #### C BC, BMP #### [facility] [address] [place] [address] [place] Dipstick and Microscopicon 1 Appearance (U) Turbid Critically abnormal Clear [facility] Comment on above: Order Comment: Comme nt urine C S if indicated by UA Name Collection Type:: Clean-Voided Midstream Performed By: #### A DDONUAPLUS #### [facility] [address] [place] [address] Bacteria,Urine None Seen Normal None Seen [facility] Comment on above: Order Comment: Comme nt urine C S if indicated by UA Name Collection Type:: Clean-Voided Midstream Performed By: #### A DDONUAPLUS #### [facility] [address] [place] [address] [place] Bilirubin,Urine Negative Normal Negative [facility] Comment on above: Order Comment: Comme nt urine C S if indicated by UA Name Collection Type:: Clean-Voided Midstream Performed By: #### A DDONUAPLUS #### [facility] [address] [place] [address] Color (U) Yellow Normal Yellow [facility] Comment on above: Order Comment: Comme nt urine C S if indicated by UA Name Collection Type:: Clean-Voided Midstream Performed By: #### A DDONUAPLUS #### [facility] [address] [place] [address] [place] Glucose Ql (U) Normal Normal Normal [facility] Comment on above: Order Comment: Comme nt urine C S if indicated by UA Name Collection Type:: Clean-Voided Midstream Performed By: #### A DDONUAPLUS #### [facility] [address] [place] [address] [place] Hyaline Casts,Urine 0-8 Normal 0-8 [facility] Comment on above: Order Comment: Comme nt urine C S if indicated by UA Name Collection Type:: Clean-Voided Midstream Result Comment: PERF ORMED BY: [place] [address] PATHOLOGIST [employer] OPERATOR CLAIRE ANTHONY M.D. Performed By: #### A DDONUAPLUS #### [facility] [address] [place] [address] Ketones Ql (U) Negative Normal Negative [facility] Comment on above: Order Comment: Comme nt urine C S if indicated by UA Name Collection Type:: Clean-Voided Midstream Performed By: #### A DDONUAPLUS #### [address] Leukocyte esterase Test strip Ql (U) 3+ High Negative [facility] Comment on above: Order Comment: Comme nt urine C S if indicated by UA Name Collection Type:: Clean-Voided Midstream Performed By: #### A DDONUAPLUS #### [facility] [address] [place] [address] Nitrite,Urine Negative Normal Negative [facility] Comment on above: Order Comment: Comme nt urine C S if indicated by UA Name Collection Type:: Clean-Voided Midstream Performed By: #### A DDONUAPLUS #### [address] Occult Blood,Urine Negative Normal Negative [facility] Comment on above: Order Comment: Comme nt urine C S if indicated by UA Name Collection Type:: Clean-Voided Midstream Result Comment: PERF ORMED BY: [place] [address] PATHOLOGIST [employer] OPERATOR CLAIRE ANTHONY M.D. Performed By: #### A DDONUAPLUS #### [facility] [address] [place] [address] pH (U) 8.5 [pH] Normal 5.0-9.0 [facility] Comment on above: Order Comment: Comme nt urine C S if indicated by UA Name Collection Type:: Clean-Voided Midstream Performed By: #### A DDONUAPLUS #### [facility] [address] [place] [address] Protein,Urine Negative Normal Negative [facility] Comment on above: Order Comment: Comme nt urine C S if indicated by UA Name Collection Type:: Clean-Voided Midstream Performed By: #### A DDONUAPLUS #### [address] RBC,Urine 3-4 Normal 0-4 [facility] Comment on above: Order Comment: Comme nt urine C S if indicated by UA Name Collection Type:: Clean-Voided Midstream Performed By: #### A DDONUAPLUS #### [address] Specificy [place],Urine 1.016 Normal 1.001-1.030 [facility] Comment on above: Order Comment: Comme nt urine C S if indicated by UA Name Collection Type:: Clean-Voided Midstream Performed By: #### A DDONUAPLUS #### [facility] [address] [place] [address] Squamous Epithelial Cell,Urine 0-1 Normal 0-2 [facility] Comment on above: Order Comment: Comme nt urine C S if indicated by UA Name Collection Type:: Clean-Voided Midstream Performed By: #### A DDONUAPLUS #### [facility] [address] [place] [address] Urobilinogen,Urine Normal Normal Normal [facility] Comment on above: Order Comment: Comme nt urine C S if indicated by UA Name Collection Type:: Clean-Voided Midstream Performed By: #### A DDONUAPLUS #### [facility] [address] [place] [address] [place] WBC,Urine 20-49 High 0-4 [facility] Comment on above: Order Comment: Comme nt urine C S if indicated by UA Name Collection Type:: Clean-Voided Midstream Performed By: #### A DDONUAPLUS #### [facility] [address] [place] [address] ECG 12 lead ECGon 08-20-2021 ECG 12 lead ECG [facility] Main [address] [address] Electrocardiograph Report Signed Patient: Isabel Waddell MR#: [id number] : 1960 Acct:[id number] Age/Sex: 61 / F ADM Date: 08/20/21 Loc: PS Room: Type: [facility] Attending Dr: Dylan Gatica Jr, DO Ordering [...] When compared with ECG of 06-SEP-2020 08:27, MD interval has decreased T wave amplitude has increased in Inferior leads Confirmed by YUSEF GIRALDO DO ([id number]) on 08/20/2021 4:50:03 PM Referred By: LAURA Electronically Signed By:YUSEF GIRALDO DO Transcribed By: MUS Signed By Yusef Giraldo DO 08/20 1650 Normal [facility] PST Type and Screenon 2020 ABO and Rh group Nom (Bld) Blood group O Rh(D) positive Normal [facility] Comment on above: Order Comment: Date of Surgery: 20210906 # of PRBC units on hold?: 2 Result Comment: PERF ORMED BY: [place] [id number] PATHOLOGIST [employer] OPERATOR CLAIRE ANTHONY M.D. Urine Cultureon 08-20-2021 Bacteria identified Cx Nom (U) Comment do C S if indicated by UA ORGANISM: Staphylococcus aureus (O:STAAUR) [place] Count 30,000 Aerobic MARELY Charge (PC45) --- [...] RESISTANT TO ALL B-LACTAM DRUGS. PERFORMED BY: [place] [address] PATHOLOGIST [employer] OPERATOR CLAIRE ANTHONY M.D. [facility] Comment on above: Performed By: #### C UU #### [address] Cult,Urineon 07-08-2021 Cult,Urine Specimen Description .URINE Special Requests NOT REPORTED Culture NO SIGNIFICANT GROWTH Report Status FINAL 07/08/2021 [facility] Comment on above: Performed By: #### U #### [facility] [place] [address] Sheet Metal Production Worker: Rei Jules MD [facility] [address] [place] [address] Sheet Metal Production Worker: Jacob Campos MD CBC Auto DifferentialOrdered By: Mayra Michel on 07-07-2021 [employer] Eos # 0.70 High [facility] Work Phone: Absolute Immature Granulocyte NOT REPORTED [facility] Work Phone: Absolute Lymph # 0.40 Low [facility] Work Phone: Absolute Lewis # 0.50 [employer] [facility] Work Phone: Basophils (Bld) [#/Vol] 0.00 10*3/uL [employer] Work Phone: Basophils/100 WBC (Bld) 1 % 0 - 2 % [email or web address] Phone: Differential Type YES [facility] Work Phone: Eosinophils/100 WBC (Bld) 14 % High 0 - 5 % [email or web address] Phone: Hematocrit (Bld) [Volume fraction] 40.1 % 36 - 46 % [email or web address] Phone: Hemoglobin.gastrointes tinal spec 1 Ql (Stl) 13.8 g/dL 12.0 - 16.0 g/dL [email or web address] Phone: Immature Granulocytes NOT REPORTED 0 % M [employer] Work Phone: Interpretation and review of laboratory results Abnormal [email or web address] Phone: Lymphocytes/100 WBC (Bld) 8 % Low 15 - 40 % [email or web address] Phone: MCH (RBC) [Entitic mass] 30.7 pg 26 - 34 pg [email or web address] Phone: MCHC (RBC) [Mass/Vol] 34.5 g/dL 31 - 37 g/dL M [employer] Work Phone: MCV (RBC) [Entitic vol] 89.1 fL 80 - 100 fL [email or web address] Phone: Monocytes/100 WBC (Bld) 10 % High 4 - 8 % [email or web address] Phone: NRBC Automated NOT REPORTED per 100 WBC [facility] Work Phone: Platelet distribution width (Bld) [Ratio] 13.0 % 12.1 - 15.2 % [email or web address] Phone: Platelet Estimate NOT REPORTED [email or web address] Phone: Platelet mean volume (Bld) [Entitic vol] NOT REPORTED 6.0 - 12.0 fL [email or web address] Phone: Platelets (Bld) [#/Vol] 157 10*3/uL [email or web address] Phone: RBC (Bld) [#/Vol] 4.50 10*6/uL 4.0 - 5.2 m/uL [email or web address] Phone: RBC (Bld) [#/Vol] NOT REPORTED [email or web address] Phone: Segmented neutrophils/100 WBC (Bld) 67 % 47 - 75 % [email or web address] Phone: Segs Absolute 3.40 [employer] Work Phone: WBC (Bld) [#/Vol] 5.1 10*3/uL [email or web address] Phone: WBC (Bld) [#/Vol] NOT REPORTED [email or web address] Phone: [email or web address] Phone: CBC with Diffon 07-07-2021 Abs. Basophil 0.00 k/uL Normal 0.0-0.[address] [facility] Comment on above: Performed By: #### C DP, CP #### [facility] [address] [place] [address] [employer] Worker: Jacob Campos MD Abs.Neutrophil (Seg) 3.40 k/uL Normal 2.5-7.0 [facility] Comment on above: Performed By: #### C DP, CP #### [facility] [address] [place] [address] [employer] Worker: Jacob Campos MD Auto Diff Performed YES Normal [facility] Comment on above: Performed By: #### C DP, CP #### [facility] [address] [place], [place] [id number] [employer] Worker: Jacob Campos MD Basophils/100 WBC (Bld) 1 % Normal 0-[address] [facility] Comment on above: Performed By: #### C DP, CP #### [facility] [address] [place], [place] [id number] [employer] Worker: Jacob Campos MD Eosinophils (Bld) [#/Vol] 0.70 10*3/uL High 0.0-0.[address] [facility] Comment on above: Performed By: #### C DP, CP #### [facility] [address] [place], [place] [id number] [employer] Worker: Jacob Campos MD Eosinophils/100 WBC (Bld) 14 % High 0-[address] [facility] Comment on above: Performed By: #### C DP, CP #### [facility] [address] [place], [place] [address]990 [employer] Worker: Jacob Campos MD Erythrocyte distribution width (RBC) [Ratio] 13.0 % Normal 12.1-15.[address] [facility] Comment on above: Performed By: #### C DP, CP #### [facility] [address] [place], [place] [id number] [employer] Worker: Jacob Campos MD Hematocrit (Bld) [Volume fraction] 40.1 % Normal 36-[address] [facility] Comment on above: Performed By: #### C DP, CP #### [facility] [address] [place], [place] [id number] [employer] Worker: Jacob Campos MD Hemoglobin (Bld) [Mass/Vol] 13.8 g/dL Normal 12.0-16.[address] [facility] Comment on above: Performed By: #### C DP, CP #### [facility] [address] [place], [place] [id number] [employer] Worker: Jacob Campos MD Lymphocytes (Bld) [#/Vol] 0.40 10*3/uL Low 1.0-4.[address] [facility] Comment on above: Performed By: #### C DP, CP #### [facility] [address] [place], [place] [id number] [employer] Worker: Jacob Campos MD Lymphocytes/100 WBC (Bld) 8 % Low 15-[address] [facility] Comment on above: Performed By: #### C DP, CP #### [facility] [address] [place], [place] [id number] [employer] Worker: Jacob Campos MD MCH (RBC) [Entitic mass] 30.7 pg Normal 26-[address] [facility] Comment on above: Performed By: #### C DP, CP #### [facility] [address] [place] [address] [employer] Worker: Jacob Campos MD MCHC (RBC) [Mass/Vol] 34.5 g/dL Normal 31-37 [facility] Comment on above: Performed By: #### C DP, CP #### [facility] [address] [place] [address] [employer] Worker: Jacob Campos MD MCV (RBC) [Entitic vol] 89.1 fL Normal 80-[address] [facility] Comment on above: Performed By: #### C DP, CP #### [facility] [address] [place] [address] [employer] Worker: Jacob Campos MD Monocytes (Bld) [#/Vol] 0.50 10*3/uL Normal 0.0-1.[address] [facility] Comment on above: Performed By: #### C DP, CP #### [facility] [address] [place] [address] [employer] Worker: Jacob Campos MD Monocytes/100 WBC (Bld) 10 % High 4-[address] [facility] Comment on above: Performed By: #### C DP, CP #### [facility] [address] [place] [address] [employer] Worker: Jacob Campos MD Neutrophil (Seg) 67 % Normal 47-[address] [facility] Comment on above: Performed By: #### C DP, CP #### [facility] [address] [place] [address] [employer] Worker: Jacob Campos MD Platelets (Bld) [#/Vol] 157 10*3/uL Normal 140-[address] [facility] Comment on above: Performed By: #### C DP, CP #### [facility] [address] [place] [address] [employer] Worker: Jacob Campos MD RBC (Bld) [#/Vol] 4.50 10*6/uL Normal 4.0-5.[address] [facility] Comment on above: Performed By: #### C DP, CP #### [facility] [address] [place] [address] [employer] Worker: Jacob Campos MD WBC (Bld) [#/Vol] 5.1 10*3/uL Normal 3.5-11.[address] [facility] Comment on above: Performed By: #### C DP, CP #### [facility] [address] [place] [address] [employer] Worker: Jacob Campos MD Abs.Imm.Granulocyte NOT REPORTED Normal 0.00-0.30 [facility] Comment on above: Performed By: #### C DP, CP #### [facility] [address] [place] [address] [employer] Worker: Jacob Campos MD Immature Granulocyte NOT REPORTED Normal 0 [facility] Comment on above: Performed By: #### C DP, CP #### [facility] [address] [place] [address] [employer] Worker: Jacob Campos MD MPV NOT REPORTED Normal 6.0-12.[address] [facility] Comment on above: Performed By: #### C DP, CP #### [facility] [address] [place] [address] [employer] Worker: Jacob Campos MD NRBC Automated NOT REPORTED Normal [facility] Comment on above: Performed By: #### C DP, CP #### [facility] [address] [place] [address] [employer] Worker: Jacob Campos MD Platelet Estimate NOT REPORTED Normal [facility] Comment on above: Performed By: #### C DP, CP #### [facility] [address] [place], [place] [id number] [employer] Worker: Jacob Campos MD RBC morphology finding Nom (Bld) NOT REPORTED Normal [facility] Comment on above: Performed By: #### C DP, CP #### [facility] [address] [place] [address] [employer] Worker: Jacob Campos MD WBC Morphology NOT REPORTED Normal [facility] Comment on above: Performed By: #### C DP, CP #### [facility] [address] [place] [address] [employer] Worker: Jacob Campos MD Comp Metabolic Profon 2020 (cont.) Normal [facility] Comment on above: Result Comment: Aver age GFR for 60-69 years old: 85 mL/min/1.73sq m Chronic Kidney Disease: <60 mL/min/1.73sq m Kidney failure: <15 mL/min/1.73sq m eGFR calculated using average adult body mass. Additional eGFR calculator available at: http://www.[employer].SourceThought/multiple_crcl_2012.htm Performed By: #### C DP, CP #### [facility] [address] [place] [address] [employer] Worker: Jacob Campos MD Albumin [Mass/Vol] 3.9 g/dL Normal 3.5-5.[address] [facility] Comment on above: Performed By: #### C DP, CP #### [facility] [address] [place] [address] [employer] Worker: Jacob Campos MD Alkaline Phos 94 U/L Normal 35-[address] [facility] Comment on above: Performed By: #### C DP, CP #### [facility] [address] [place] [address] [employer] Worker: Jacob Campos MD ALT [Catalytic activity/Vol] 31 U/L Normal 5-[address] [facility] Comment on above: Performed By: #### C DP, CP #### [facility] [address] [place] [address] [employer] Worker: Jacob Campos MD Anion gap [Moles/Vol] 10 mmol/L Normal 9-17 [facility] Comment on above: Performed By: #### C DP, CP #### [facility] [address] [place] [address] [employer] Worker: Jacob Campos MD AST [Catalytic activity/Vol] 28 U/L Normal <[address] [facility] Comment on above: Performed By: #### C DP, CP #### [facility] [address] [place] [address] [employer] Worker: Jacob Campos MD Bilirubin [Mass/Vol] 0.46 mg/dL Normal 0.30-1.20 [facility] Comment on above: Performed By: #### C DP, CP #### [facility] [address] [place] [address] [employer] Worker: Jacob Campos MD BUN/CRE Ratio 27 High 9-[address] [facility] Comment on above: Performed By: #### C DP, CP #### [facility] [address] [place], [place] [id number] [employer] Worker: Jacob Campos MD Calcium [Mass/Vol] 9.7 mg/dL Normal 8.6-10.[address] [facility] Comment on above: Performed By: #### C DP, CP #### [facility] [address] [place], [place] [id number] [employer] Worker: Jacob Campos MD Chloride [Moles/Vol] 107 mmol/L Normal 98-107 [facility] Comment on above: Performed By: #### C DP, CP #### [facility] [address] [place], [place] [id number] [employer] Worker: Jacob Campos MD CO2 [Moles/Vol] 25 mmol/L Normal 20-[address] [facility] Comment on above: Performed By: #### C DP, CP #### [facility] [address] [place], [place] [id number] [employer] Worker: Jacob Campos MD Creatinine [Mass/Vol] 0.60 mg/dL Normal 0.50-0.90 [facility] Comment on above: Performed By: #### C DP, CP #### [facility] [address] [place], [place] [phone] [employer] Worker: Jacob Campos MD GFR, Amer >60 Normal >[address] [facility] Comment on above: Performed By: #### C DP, CP #### [facility] [address] [place], [place] [id number] [employer] Worker: Jacob Campos MD GFR,non Amer >60 Normal >60 [facility] Comment on above: Performed By: #### C DP, CP #### [facility] [address] [place], [place] [id number] [employer] Worker: Jacob Campos MD Glucose [Mass/Vol] 122 mg/dL High 70-[address] [facility] Comment on above: Performed By: #### C DP, CP #### [facility] [address] [place] [address] [employer] Worker: Jacob Campos MD Potassium [Moles/Vol] 3.8 mmol/L Normal 3.7-5.3 [facility] Comment on above: Performed By: #### C DP, CP #### [facility] [address] [place], [place] [id number] [employer] Worker: Jacob Campos MD Protein [Mass/Vol] 6.9 g/dL Normal 6.4-8.[address] [facility] Comment on above: Performed By: #### C DP, CP #### [facility] [address] [place] [address] [employer] Worker: Jacob Campos MD Sodium [Moles/Vol] 142 mmol/L Normal 135-[address] [facility] Comment on above: Performed By: #### C DP, CP #### [facility] [address] [place], [place] [id number] [employer] Worker: Jacob Campos MD Urea nitrogen [Mass/Vol] 16 mg/dL Normal 8-[address] [facility] Comment on above: Performed By: #### C DP, CP #### [facility] [address] [place] [address] [employer] Worker: Jacob Campos MD Albumin/Glob Ratio NOT REPORTED Normal 1.0-2.5 [facility] Comment on above: Performed By: #### C DP, CP #### [facility] [address] [place], [place] [address]072[address] [employer] Worker: Jacbo Campos MD Staging: NOT REPORTED Normal [facility] Comment on above: Performed By: #### C DP, CP #### [facility] [address] [place] [address] [employer] Worker: Jacob Campos MD Comprehensive Metabolic Pane lOrdered By: Mayra Michel on 07-07-2021 Albumin [Mass/Vol] 3.9 g/dL 3.5 - 5.2 g/dL [email or web address] Phone: Albumin/Globulin Ratio NOT REPORTED [email or web address] Phone: ALP (Bld) [Catalytic activity/Vol] 94 U/L 35 - 104 U/L [email or web address] Phone: ALT [Catalytic activity/Vol] 31 U/L 5 - 33 U/L [email or web address] Phone: Anion gap [Moles/Vol] 10 mmol/L 9 - 17 mmol/L [email or web address] Phone: AST [Catalytic activity/Vol] 28 U/L <32 [email or web address] Phone: Bilirubin [Mass/Vol] 0.46 mg/dL 0.30 - 1.20 mg/dL [email or web address] Phone: Calcium [Mass/Vol] 9.7 mg/dL 8.6 - 10. 4 mg/dL [email or web address] Phone: Chloride [Moles/Vol] 107 mmol/L 98 - 10 7 mmol/L [email or web address] Phone: CO2 [Moles/Vol] 25 mmol/L 20 - 31 mmol/L [email or web address] Phone: Creatinine [Mass/Vol] 0.6 mg/dL 0.50 - 0.90 mg/dL [email or web address] Phone: Free PSA/Total PSA [Mass fraction] 6.9 g/dL 6.4 - 8.3 g/dL [email or web address] Phone: GFR >60 >60 mL/min [employer] Phone: GFR Non- >60 >60 mL/min [email or web address] Phone: GFR/1.73 sq M.predicted MDRD (S/P/Bld) [Vol rate/Area] [email or web address] Phone: Comment on above: Average GFR for 60-6 9 years old: 85 mL/min/1.73sq m Chronic Kidney Disease: <60 mL/min/1.73sq m Kidney failure: <15 mL/min/1.73sq m eGFR calculated using average adult body mass. Additional eGFR calculator available at: http://www.[employer]/multiple_crcl_2012.htm GFR/1.73 sq M.predicted MDRD (S/P/Bld) [Vol rate/Area] NOT REPORTED [email or web address] Phone: Glucose [Mass/Vol] 122 mg/dL High 70 - 99 mg/dL [email or web address] Phone: Interpretation and review of laboratory results Abnormal [email or web address] Phone: Potassium [Moles/Vol] 3.8 mmol/L 3.7 - 5.3 mmol/L [email or web address] Phone: Sodium [Moles/Vol] 142 mmol/L 135 - 144 mmol/L [email or web address] Phone: Urea nitrogen (BldV) [Mass/Vol] 16 mg/dL 8 - 23 mg/dL [email or web address] Phone: Urea nitrogen/Creatinine (Bld) [Mass ratio] 27 High [email or web address] Phone: [email or web address] Phone: Microscopic UrinalysisOrdere d By: Mayra Michel on 07-07-2021 - [email or web address] Phone: Amorphous, UA NOT REPORTED None [facility] Work Phone: Bacteria, UA 2+ Abnormal None [email or web address] Phone: Casts UA NOT REPORTED /LPF [email or web address] Phone: Crystals, UA NOT REPORTED None /HPF [facility] [facility] Work Phone: Epithelial Cells UA 5 TO 10 /HPF [employer] Work Phone: Interpretation and review of laboratory results Abnormal [facility] Work Phone: Mucus, UA 1+ Abnormal None [facility] Work Phone: Other Observations UA NOT REPORTED NOT REQ. [facility] Work Phone: RBC, UA 5 TO 10 [facility] Work Phone: Renal Epithelial, UA NOT REPORTED 0 /HPF [facility] Work Phone: Trichomonas, UA NOT REPORTED None [facility] Work Phone: WBC, UA 2 TO 5 0 /HPF [facility] Work Phone: Yeast, UA NOT REPORTED None [facility] Work Phone: [facility] Work Phone: UrinalysisOrdered By: Olamide Michel on 07-07-2021 Bilirubin Urine Negative NEGATIVE [facility] Work Phone: Color, UA YELLOW YELLOW [facility] Work Phone: Glucose, Ur Negative NEGATIVE [facility] Work Phone: Interpretation and review of laboratory results Abnormal [facility] Work Phone: Ketones Ql (U) Negative NEGATIVE [facility] Work Phone: Leukocyte esterase Test strip Ql (U) 1+ Abnormal NEGATIVE [facility] Work Phone: Nitrite, Urine Negative NEGATIVE [facility] [employer] Work Phone: pH, UA 6.0 [facility] Work Phone: Protein, UA TRACE Abnormal NEGATIVE [facility] Work Phone: Specific [place], UA 1.020 [facility] Work Phone: Turbidity UA CLEAR CLEAR [facility] Work Phone: Urinalysis Comments [facility] [employer] Phone: Urine Hgb TRACE Abnormal NEGATIVE [facility] [employer] Phone: Urobilinogen, Urine Normal Normal [facility] [employer] Phone: [facility] [employer] Phone: Urinalysis, Routineon 2020 Bilirubin, SemiQt,Ur Negative Normal NEG [facility] Comment on above: Performed By: #### U MICAO, UA #### [facility] [address] [place] [address] [employer] Worker: Jacob Campos MD Blood, Urine TRACE Abnormal NEG [facility] Comment on above: Performed By: #### U MICAO, UA #### [facility] [address] [facility] [place] [id number] [employer] Worker: Jacob Campos MD Clarity (U) CLEAR Normal CLEAR [facility] Comment on above: Performed By: #### U MICAO, UA #### [facility] [address] [facility] [place] [id number] [employer] Worker: Jacob Campos MD Color (U) YELLOW Normal YEL [facility] Comment on above: Performed By: #### U MICAO, UA #### [facility] [address] [place] [address] [employer] Worker: Jacob Campos MD Comment Normal [facility] Comment on above: Performed By: #### U MICAO, UA #### [facility] [address] [facility] [place] [id number] [employer] Worker: Jacob Campos MD Glucose Ql (U) Negative Normal NEG [facility] Comment on above: Performed By: #### U MICAO, UA #### [facility] [address] [place] [address] [employer] Worker: Jacob Campos MD Ketones Ql (U) Negative Normal NEG [facility] Comment on above: Performed By: #### U MICAO, UA #### [facility] [address] [place] [address] [employer] Worker: Jacob Campos MD Leukocyte esterase Test strip Ql (U) 1+ Abnormal NEG [facility] Comment on above: Performed By: #### U MICAO, UA #### [facility] [address] [place] [address] [employer] Worker: Jacob Campos MD Nitrite,Ur Negative Normal NEG [facility] Comment on above: Performed By: #### U MICAO, UA #### [facility] [address] [place] [address] [employer] Worker: Jacob Campos MD PH,Ur 6.0 Normal 5.0-8.[address] [facility] Comment on above: Performed By: #### U MICAO, UA #### [facility] [address] [place] [address] [employer] Worker: Jacob Campos MD Protein Ql (U) TRACE Abnormal NEG [facility] Comment on above: Performed By: #### U MICAO, UA #### [facility] [address] [place] [address] [employer] Worker: Jacob Campos MD Spec. [place],Ur 1.020 Normal 1.005-1.[address] [facility] Comment on above: Performed By: #### U MICAO, UA #### [facility] [address] [place] [address] [employer] Worker: Jacob Campos MD Urobilinogen,Ur Normal Normal NORM [facility] Comment on above: Performed By: #### U MICAO, UA #### [facility] [address] [place] [address] [employer] Worker: Jacob Campos MD Urinalysis,Microon 1 ----- Normal [facility] Comment on above: Performed By: #### U RICH UA #### [facility] [address] [place], [place] [id number] [employer] Worker: Jacob Campos MD Bacteria 2+ Abnormal [facility] Comment on above: Performed By: #### U RICH UA #### [facility] [address] [place], [place] [id number] [employer] Worker: Jacob Campos MD Epithelial cells LM Ql (Urine sed) 5 TO [address] [facility] Comment on above: Performed By: #### U RICH UA #### [facility] [address] [place], [place] [address] [employer] Worker: Jacob Campos MD Mucus Strands 1+ Abnormal [facility] Comment on above: Performed By: #### U RICH, UA #### [facility] [address] [place], [place] [id number] [employer] Worker: Jacob Campos MD Urine RBC's 5 TO 10 Normal 0-[address] [facility] Comment on above: Performed By: #### U RICH UA #### [facility] [address] [place], [place] [id number] [employer] Worker: Jacob Campos MD Urine WBC's 2 TO 5 Normal [address] [facility] Comment on above: Performed By: #### U RICH, UA #### [facility] [address] [place], [place] [address]66[address] [employer] Worker: Jacob Campos MD Amorphous sediment LM Ql (Urine sed) NOT REPORTED Normal [facility] Comment on above: Performed By: #### U EULALIAO, UA #### [facility] [address] [place], [place] [phone] [employer] Worker: Jacob Campos MD Casts NOT REPORTED Normal [facility] Comment on above: Performed By: #### U RICH, UA #### [facility] [address] [place], [place] [address] [employer] Worker: Jacob Campos MD Crystals LM Nom (Urine sed) NOT REPORTED Normal NONE [facility] Comment on above: Performed By: #### U MICAO, UA #### [facility] [address] [place], [place] [id number] [employer] Worker: Jacob Campos MD Epithelial, Renal NOT REPORTED Normal [address] [facility] Comment on above: Performed By: #### U MICAO, UA #### [facility] [address] [place], [place] [id number] [employer] Worker: Jacob Campos MD Other Observations NOT REPORTED Normal NREQ [facility] Comment on above: Performed By: #### U EULALIAO, UA #### [facility] [address] [place], [place] [address] [employer] Worker: Jacob Campos MD Trichomonas NOT REPORTED Normal NONE [facility] Comment on above: Performed By: #### U EULALIAO, UA #### [facility] [address] [place], [place] [address] [employer] Worker: Jacob Campos MD Yeast NOT REPORTED Normal NONE [facility] Comment on above: Performed By: #### U EULALIAO, UA #### [facility] [address] [place], [place] [phone] [employer] Worker: Jacob Campos MD XR hand RT min 3V*on 021 XR hand RT min 3V* [facility] Main [address] [address] XRay Report Signed Patient: Isabel Waddell MR#: [id number] : 1960 Acct:[id number] Age/Sex: 60 / F ADM Date: 03/28/21 Loc: [facility] Room: Type: [facility] CLI Attending Dr: Sona Hurst MD Ordering [...] Mckayla Rai M.D.03/28/2021 1:26 PM Dictation Location: [place] [address] Transcribed By: [facility] 03/28/21 1326 Dictated By: Mckayla Rai MD 03/28/21 1321 Signed By: 03/28/21 1326 [facility] BIOAVAILABLE TESTOSTERONE FE MALESusie 11-29-2019 Albumin [Mass/Vol] 4.3 g/dL Normal 3.6-5.1 [facility] Comment on above: Result Comment: Age and Gender Specific Reference Interval Applied Interpretive Information: Total Testosterone Reference Interval (ng/dL) Premenopausal 9 - 55 Postmenopausal 5 - 32 Bioavailable Testosterone (ng/dL) Postmenopausal 1.5 - 9.4 Free Testosterone Reference Interval (pg/mL) Postmenopausal 0.6 - 3.8 This test was developed and its performance characteristics determined by [facility] ([facility]). It has not been cleared or approved by the U.S. Food and Drug Administration (FDA). The FDA has determined that such clearance or approval is not necessary. This test is used for clinical purposes and should not be regarded as investigational or for research. [facility] is qualified to perform high complexity testing under the Clinical Laboratory Improvement Amendments (CLIA). Test performed at [facility] [address] [place] [address], [address], [address] [place] [address] Director Pediatric: Adi Barksdale M.D. CLIA Number [id number] CAP Accreditation Number [id number] ------- [facility] [address] [place] [address] CLIA No. [id number] CAP Accreditation No. [id number] Director Pediatric: Isiah Burr M.D. Performed By: #### 1 000, 4500, 4510, 4520, 28050, 5000, 34635, 88739 #### [facility] Unless Otherwise Noted [address] [place] [address] / COLA #4724/CLIA # [id number] SEX HORM BINDING GLOBULIN 56.3 nmol/L Normal 17.3-125.0 [facility] Comment on above: Performed By: #### 1 000, 4500, 4510, 4520, 41326, 5000, 88284, 19543 #### [facility] Unless Otherwise Noted [address] [place] [address] / COLA #4724/CLIA # [id number] TESTOSTERONE BIO FEMALE 2.9 ng/dL Normal 1.5-9.4 [facility] Comment on above: Performed By: #### 1 000, 4500, 4510, 4520, 37796, 5000, 94455, 92238 #### [facility] Unless Otherwise Noted [address] [place] [address] / COLA #4724/CLIA # [id number] TESTOSTERONE FREE FEMALE 1.3 pg/mL Normal 0.6-3.8 [facility] Comment on above: Performed By: #### 1 000, 4500, 4510, 4520, 51968, 5000, 36621, 31459 #### [facility] Unless Otherwise Noted [address] [address] / COLA #4724/CLIA # [id number] TESTOSTERONE, ULTRASENSITIVE 10 ng/dL Normal 9-55 [facility] Comment on above: Performed By: #### 1 000, 4500, 4510, 4520, 01357, 5000, 00908, 44943 #### [facility] Unless Otherwise Noted [address] [address] / COLA #4724/CLIA # [id number] ADRENOCORTICOTROPIC HORMon 0 11-27-2019 ADRENOCORTICOTROPIC HORM 18.1 PG/ML Normal 7.2-63.3 [facility] Comment on above: Result Comment: Reference range established for normal adult patients, morning blood draw (7-10 AM). Certain synthetic ACTH fragments may interfere with this assay. Test performed at [facility] [address] [place] [address] CLIA Number [id number] [facility] Accreditation Number [id number] ------- Performed By: #### 1 000, 4500, 4510, 4520, 25605, 5000, 69528, 83751 #### [facility] Unless Otherwise Noted [address] [address] / COLA #4724/CLIA # [id number] IGF-1on 11-27-2019 IGF-1 151 NG/ML Normal 43-187 [facility] Comment on above: Result Comment: Test performed at [facility] [address] [facility] [place] [address] CLIA Number [id number] [facility] Accreditation Number [id number] ------- Performed By: #### 1 000, 4500, 4510, 4520, 88188, 5000, 00416, 27383 #### [facility] Unless Otherwise Noted [address] [place] [address] / COLA #4724/CLIA # [id number] CORTISOL Delonte 11-26-2019 CORTISOL AM 8.6 UG/DL Normal 4.5-22.7 [facility] Comment on above: Performed By: #### 1 000, 4500, 4510, 4520, 62501, 5000, 41731, 99349 #### [facility] Unless Otherwise Noted [address] [place] [address] / COLA #4724/CLIA # [id number] FSHon 11-26-2019 FSH 26.30 mlU/mL Normal [facility] Comment on above: Result Comment: REFE RENCE RANGES FOR FEMALES: OVULATING FEMALE: FOLLICULAR PHASE 1.98-11.6 PEAK 5.14-23.4 LUTEAL PHASE 1.38-9.58 POSTMENOPAUSAL FEMALE 21.5-131 Performed By: #### 4 530, 8120, 4550, 4578 #### [facility] Unless Otherwise Noted [address] [place] [address] / COLA #4724/CLIA # [id number] LHon 11-26-2019 LH 23.00 mIU/ml Normal [facility] Comment on above: Result Comment: REFE RENCE RANGES FOR FEMALE: OVULATING FEMALE: FOLLICULAR PHASE 2.58-12.1 PEAK 27.3-96.9 LUTEAL PHASE 0.83-15.5 POSTMENOPAUSAL FEMALE 13.1-86.5 Performed By: #### 4 530, 4540, 4550, 4577 #### [facility] Unless Otherwise Noted [address] [address] / COLA #4724/CLIA # [id number] PROLACTINon 11-26-2019 PROLACTIN 17.3 ng/ml Normal 2.1-47.6 [facility] Comment on above: Result Comment: IVELISSE ENOPAUSAL FEMALE 2.1 - 47.6 POSTMENOPAUSAL FEMALE 0.0 - 41.4 Performed By: #### 1 000, 4500, 4510, 4520, 30148, 5000, 87983, 98900 #### [facility] Unless Otherwise Noted [address] [address] / COLA #4724/CLIA # [id number] CBC W/AUTO DIFFon 11-25-2019 ABS BASOPHILS 0.0 X10E9/L Normal 0-0.9 [facility] Comment on above: Result Comment: Perf ormed at [facility] [address] [facility] [address] Performed By: #### 1 000, 4500, 4510, 4520, 84100, 5000, 18709, 22716 #### [facility] Unless Otherwise Noted [address] [address] / COLA #4724/CLIA # [id number] ABS NEUTROPHILS 2.6 X10E9/L Normal 1.5-6.6 [facility] Comment on above: Performed By: #### 1 000, 4500, 4510, 4520, 56015, 5000, 87735, 54847 #### [facility] Unless Otherwise Noted [address] [place] [address] / COLA #4724/CLIA # [id number] Basophils/100 WBC (Bld) 0.6 % Normal [facility] Comment on above: Performed By: #### 1 000, 4500, 4510, 4520, 90928, 5000, 35883, 79065 #### [facility] Unless Otherwise Noted [address] [address] / COLA #4724/CLIA # [id number] Eosinophils (Bld) [#/Vol] 0.2 10*3/uL Normal 0.0-0.4 [facility] Comment on above: Performed By: #### 1 000, 4500, 4510, 4520, 10555, 5000, 82033, 61708 #### [facility] Unless Otherwise Noted [address] [place] [address] / COLA #4724/CLIA # [id number] Eosinophils/100 WBC (Bld) 3.1 % Normal [facility] Comment on above: Performed By: #### 1 000, 4500, 4510, 4520, 57170, 5000, 50811, 91394 #### [facility] Unless Otherwise Noted [address] [address] / COLA #4724/CLIA # [id number] Erythrocyte distribution width (RBC) [Ratio] 13.3 % Normal 11.5-14.7 [facility] Comment on above: Performed By: #### 1 000, 4500, 4510, 4520, 31477, 5000, 24217, 49000 #### [facility] Unless Otherwise Noted [address] [address] / COLA #4724/CLIA # [id number] Hematocrit (Bld) [Volume fraction] 39.4 % Normal 35-47 [facility] Comment on above: Performed By: #### 1 000, 4500, 4510, 4520, 44382, 5000, 09732, 45905 #### [facility] Unless Otherwise Noted [address] [address] / COLA #4724/CLIA # [id number] Hemoglobin (Bld) [Mass/Vol] 13.3 g/dL Normal 11.7-16.0 [facility] Comment on above: Performed By: #### 1 000, 4500, 4510, 4520, 13888, 5000, 95938, 24325 #### [facility] Unless Otherwise Noted [address] [address] / COLA #4724/CLIA # [id number] Lymphocytes (Bld) [#/Vol] 1.8 10*3/uL Normal 1.0-3.5 [facility] Comment on above: Performed By: #### 1 000, 4500, 4510, 4520, 52353, 5000, 08988, 50372 #### [facility] Unless Otherwise Noted [address] [address] / COLA #4724/CLIA # [id number] Lymphocytes/100 WBC (Bld) 35.0 % Normal [facility] Comment on above: Performed By: #### 1 000, 4500, 4510, 4520, 04376, 5000, 09128, 75772 #### [facility] Unless Otherwise Noted [address] [address] / COLA #4724/CLIA # [id number] MCH (RBC) [Entitic mass] 31.2 pg Normal 26-33.5 [facility] Comment on above: Performed By: #### 1 000, 4500, 4510, 4520, 68087, 5000, 49297, 76795 #### [facility] Unless Otherwise Noted [address] / COLA #4724/CLIA # [id number] MCHC (RBC) [Mass/Vol] 33.7 g/dL Normal 32-36 [facility] Comment on above: Performed By: #### 1 000, 4500, 4510, 4520, 89001, 5000, 88449, 27533 #### [facility] Unless Otherwise Noted [address] [place] [address] / COLA #4724/CLIA # [id number] MCV (RBC) [Entitic vol] 93 fL Normal 81-100 [facility] Comment on above: Performed By: #### 1 000, 4500, 4510, 4520, 37962, 5000, 98952, 96135 #### [facility] Unless Otherwise Noted [address] / COLA #4724/CLIA # [id number] Monocytes (Bld) [#/Vol] 0.5 10*3/uL Normal 0-0.9 [facility] Comment on above: Performed By: #### 1 000, 4500, 4510, 4520, 93610, 5000, 25499, 97680 #### [facility] Unless Otherwise Noted [address] / COLA #4724/CLIA # [id number] Monocytes/100 WBC (Bld) 10.0 % Normal [facility] Comment on above: Performed By: #### 1 000, 4500, 4510, 4520, 70759, 5000, 41702, 08339 #### [facility] Unless Otherwise Noted [address] [address] / COLA #4724/CLIA # [id number] Neutrophils/100 WBC (Bld) 51.3 % Normal [facility] Comment on above: Performed By: #### 1 000, 4500, 4510, 4520, 83498, 5000, 65016, 23449 #### [facility] Unless Otherwise Noted [address] [address] / COLA #4724/CLIA # [id number] Platelet mean volume (Bld) [Entitic vol] 8.8 fL Normal 7-12 [facility] Comment on above: Performed By: #### 1 000, 4500, 4510, 4520, 90426, 5000, 02155, 17499 #### [facility] Unless Otherwise Noted [address] [address] / COLA #4724/CLIA # [id number] Platelets (Bld) [#/Vol] 225 10*3/uL Normal 150-450 [facility] Comment on above: Performed By: #### 1 000, 4500, 4510, 4520, 52155, 5000, 60727, 18231 #### [facility] Unless Otherwise Noted [address] [address] / COLA #4724/CLIA # [id number] RBC (Bld) [#/Vol] 4.25 X10E12/L Normal 3.80-5.20 [facility] Comment on above: Performed By: #### 1 000, 4500, 4510, 4520, 15469, 5000, 04947, 59110 #### [facility] Unless Otherwise Noted [address] [address] / COLA #4724/CLIA # [id number] WBC (Bld) [#/Vol] 5.1 10*3/uL Normal 4.8-10.8 [facility] Comment on above: Performed By: #### 1 000, 4500, 4510, 4520, 17249, 5000, 81072, 88912 #### [facility] Unless Otherwise Noted [address] [address] / COLA #4724/CLIA # [id number] [facility] 11-25-2019 Albumin [Mass/Vol] 4.2 g/dL Normal 3.5-5.0 [facility] Comment on above: Performed By: #### 1 000, 4500, 4510, 4520, 36936, 5000, 13393, 76942 #### [facility] Unless Otherwise Noted [address] [address] / COLA #4724/CLIA # [id number] ALP [Catalytic activity/Vol] 103.0 U/L Normal 38.0-126.0 [facility] Comment on above: Performed By: #### 1 000, 4500, 4510, 4520, 19058, 5000, 08454, 79220 #### [facility] Unless Otherwise Noted [address] [address] / COLA #4724/CLIA # [id number] ALT [Catalytic activity/Vol] 62.0 U/L Normal 13.0-69.0 [facility] Comment on above: Performed By: #### 1 000, 4500, 4510, 4520, 52523, 5000, 04337, 90059 #### [facility] Unless Otherwise Noted [address] [address] / COLA #4724/CLIA # [id number] Anion gap [Moles/Vol] 4.0 mmol/L Low 10.0-15.0 [facility] Comment on above: Performed By: #### 1 000, 4500, 4510, 4520, 01032, 5000, 24733, 53805 #### [facility] Unless Otherwise Noted [address] [address] / COLA #4724/CLIA # [id number] AST [Catalytic activity/Vol] 30.0 U/L Normal 15.0-46.0 [facility] Comment on above: Performed By: #### 1 000, 4500, 4510, 4520, 01212, 5000, 15764, 11550 #### [facility] Unless Otherwise Noted [address] [address] / COLA #4724/CLIA # [id number] Bilirubin Ql (U) 0.50 mg/dL Normal 0.20-1.30 [facility] Comment on above: Performed By: #### 1 000, 4500, 4510, 4520, 34613, 5000, 53476, 10558 #### [facility] Unless Otherwise Noted [address] [address] / COLA #4724/CLIA # [id number] BUN/Cre Ratio 32.9 Ratio High 7.0-27.0 [facility] Comment on above: Performed By: #### 1 000, 4500, 4510, 4520, 50811, 5000, 16951, 52037 #### [facility] Unless Otherwise Noted [address] [address] / COLA #4724/CLIA # [id number] Calcium [Mass/Vol] 9.5 mg/dL Normal 8.4-10.2 [facility] Comment on above: Performed By: #### 1 000, 4500, 4510, 4520, 21955, 5000, 91881, 85083 #### [facility] Unless Otherwise Noted [address] [address] / COLA #4724/CLIA # [id number] Chloride [Moles/Vol] 102.0 mmol/L Normal 98.0-107.0 [facility] Comment on above: Performed By: #### 1 000, 4500, 4510, 4520, 70804, 5000, 83638, 14989 #### [facility] Unless Otherwise Noted [address] [address] / COLA #4724/CLIA # [id number] CO2 [Moles/Vol] 31.0 mmol/L High 22.0-30.0 [facility] Comment on above: Performed By: #### 1 000, 4500, 4510, 4520, 25375, 5000, 27930, 26257 #### [facility] Unless Otherwise Noted [address] [address] / COLA #4724/CLIA # [id number] Creatinine [Mass/Vol] 0.7 mg/dL Normal 0.5-1.0 [facility] Comment on above: Performed By: #### 1 000, 4500, 4510, 4520, 04648, 5000, 43167, 42215 #### [facility] Unless Otherwise Noted [address] [address] / COLA #4724/CLIA # [id number] GFR/1.73 sq M predicted among blacks MDRD (S/P/Bld) [Vol rate/Area] 110.1 ml/m1.73 Normal [facility] Comment on above: Performed By: #### 1 000, 4500, 4510, 4520, 13036, 5000, 24881, 48896 #### [facility] Unless Otherwise Noted [address] [place] [address] / COLA #4724/CLIA # [id number] GFR/1.73 sq M predicted among non-blacks MDRD (S/P/Bld) [Vol rate/Area] 91.0 ml/m1.73 Normal [facility] Comment on above: Performed By: #### 1 000, 4500, 4510, 4520, 65540, 5000, 74250, 94462 #### [facility] Unless Otherwise Noted [address] [address] / COLA #4724/CLIA # [id number] GFR/1.73 sq M predicted among non-blacks MDRD (S/P/Bld) [Vol rate/Area] 96.2 ml/m1.73 Normal [facility] Comment on above: Performed By: #### 1 000, 4500, 4510, 4520, 02075, 5000, 77623, 50316 #### [facility] Unless Otherwise Noted [address] [place] [address] / COLA #4724/CLIA # [id number] Glucose [Mass/Vol] 109.0 mg/dL High 74.0-106.0 [facility] Comment on above: Performed By: #### 1 000, 4500, 4510, 4520, 35359, 5000, 79859, 48220 #### [facility] Unless Otherwise Noted [address] [address] / COLA #4724/CLIA # [id number] Potassium [Moles/Vol] 4.3 mmol/L Normal 3.5-5.1 [facility] Comment on above: Performed By: #### 1 000, 4500, 4510, 4520, 98206, 5000, 50801, 12779 #### [facility] Unless Otherwise Noted [address] [address] / COLA #4724/CLIA # [id number] Protein [Mass/Vol] 6.8 g/dL Normal 6.3-8.2 [facility] Comment on above: Performed By: #### 1 000, 4500, 4510, 4520, 87658, 5000, 58396, 02703 #### [facility] Unless Otherwise Noted [address] [address] / COLA #4724/CLIA # [id number] Sodium [Moles/Vol] 137.0 mmol/L Normal 137.0-145.0 [facility] Comment on above: Performed By: #### 1 000, 4500, 4510, 4520, 70237, 5000, 67012, 89407 #### [facility] Unless Otherwise Noted [address] [address] / COLA #4724/CLIA # [id number] Urea nitrogen [Mass/Vol] 23.0 mg/dL High 7.0-17.0 [facility] Comment on above: Performed By: #### 1 000, 4500, 4510, 4520, 59339, 5000, 83523, 74162 #### [facility] Unless Otherwise Noted [address] [place] [address] / COLA #4724/CLIA # [id number] FT3on 11-25-2019 FT3 4.39 pg/mL Normal 2.71-6.16 [facility] Comment on above: Performed By: #### 1 000, 4500, 4510, 4520, 13830, 5000, 98574, 96003 #### [facility] Unless Otherwise Noted [address] [place] [address] / COLA #4724/CLIA # [id number] FT4on 11-25-2019 Free T4 [Mass/Vol] 0.95 ng/dL Normal 0.64-1.79 [facility] Comment on above: Performed By: #### 1 000, 4500, 4510, 4520, 25956, 5000, 30363, 58400 #### [facility] Unless Otherwise Noted [address] [place] [address] / COLA #4724/CLIA # [id number] TSHon 11-25-2019 TSH Qn 0.35 uIU/ml Low 0.47-4.68 [facility] Comment on above: Performed By: #### 1 000, 4500, 4510, 4520, 20260, 5000, 60636, 63221 #### [facility] Unless Otherwise Noted [address] [place] [address] / COLA #4724/CLIA # [id number] Vital Signs Date Time Vital Sign Value Performing Clinician Facility 09-29-2023 10:33-0500 Body height 167.6 cm South Saba DO Work Phone: [facility] 09-29-2023 10:33-0500 Body weight 62.14 kg South Saba DO Work Phone: [facility] 09-12-2023 10:00-0400 Body height 167.64 cm Roland Ball Other [facility] Other 09-12-2023 10:00-0400 Body mass index (BMI) [Ratio] 23.05 kg/m2 Roland Ball Other [facility] Other 09-12-2023 10:00-0400 Body weight 64.77 kg Roland Ball Other [facility] Other 09-12-2023 10:00-0400 Diastolic blood pressure 75 mm[Hg] Roland Ball Other [facility] Other 09-12-2023 10:00-0400 Respiratory rate 12 /min Roland Ball Other [facility] Other 09-12-2023 10:00-0400 Systolic blood pressure 131 mm[Hg] Roland Ball Other [facility] Other 08-29-2023 10:55-0400 Body height 167.6 cm Elder Angelia HEALTH PHYSICIST.PALLIATIVE CARE PHYSICIAN Work Phone: [facility] 08-29-2023 10:55-0400 Body temperature 98.01 [degF] Elder Angelia HEALTH PHYSICIST.PALLIATIVE CARE PHYSICIAN Work Phone: [facility] 08-29-2023 10:55-0400 Body weight 66.68 kg Elder Angelia HEALTH PHYSICIST.PALLIATIVE CARE PHYSICIAN Work Phone: [facility] 08-29-2023 10:55-0400 Diastolic blood pressure 78 mm[Hg] Elder Angelia HEALTH PHYSICIST.PALLIATIVE CARE PHYSICIAN Work Phone: [facility] 08-29-2023 10:55-0400 Heart rate 82 /min Elder Angelia HEALTH PHYSICIST.PALLIATIVE CARE PHYSICIAN Work Phone: [facility] 08-29-2023 10:55-0400 SaO2% (BldA) [Mass fraction] 99 % Elder Angelia HEALTH PHYSICIST.PALLIATIVE CARE PHYSICIAN Work Phone: [facility] 08-29-2023 10:55-0400 Systolic blood pressure 163 mm[Hg] Elder Angelia HEALTH PHYSICIST.PALLIATIVE CARE PHYSICIAN Work Phone: [facility] 08-29-2023 10:03-0400 Body temperature 98.01 [degF] Heidi Macdonald MD Work Phone: [facility] 08-29-2023 10:03-0400 Body weight 66.68 kg Heidi Macdonald MD Work Phone: [facility] 08-29-2023 10:03-0400 Diastolic blood pressure 77 mm[Hg] Heidi Macdonald MD Work Phone: [facility] 08-29-2023 10:03-0400 Heart rate 82 /min Heidi Macdonald MD Work Phone: [facility] 08-29-2023 10:03-0400 Respiratory rate 16 /min Heidi Macdonald MD Work Phone: [facility] 08-29-2023 10:03-0400 SaO2% (BldA) [Mass fraction] 99 % Heidi Macdonald MD Work Phone: [facility] 08-29-2023 10:03-0400 Systolic blood pressure 157 mm[Hg] Heidi Macdonald MD Work Phone: [facility] 07-04-2023 09:18-0400 Body height 167.6 cm South Saba DO Work Phone: [facility] 07-04-2023 09:18-0400 Body temperature 97.59 [degF] South Saba DO Work Phone: [facility] 07-04-2023 09:18-0400 Body weight 66.5 kg South Saba DO Work Phone: [facility] 07-04-2023 09:18-0400 Diastolic blood pressure 68 mm[Hg] South Saba DO Work Phone: [facility] 07-04-2023 09:18-0400 Heart rate 73 /min South Saba DO Work Phone: [facility] 07-04-2023 09:18-0400 SaO2% (BldA) [Mass fraction] 100 % South Saba DO Work Phone: [facility] 07-04-2023 09:18-0400 Systolic blood pressure 139 mm[Hg] South Saba DO Work Phone: [facility] 06-27-2023 10:30-0400 Body temperature 97.39 [degF] Heidi Macdonald MD Work Phone: [facility] 06-27-2023 10:30-0400 Body weight 69.4 kg Heidi Macdonald MD Work Phone: [facility] [facility] 06-27-2023 10:30-0400 Diastolic blood pressure 76 mm[Hg] Heidi Macdonald MD Work Phone: [facility] 06-27-2023 10:30-0400 Heart rate 70 /min Heidi Macdonald MD Work Phone: [facility] 06-27-2023 10:30-0400 Respiratory rate 16 /min Heidi Macdonald MD Work Phone: [facility] 06-27-2023 10:30-0400 SaO2% (BldA) [Mass fraction] 97 % Heidi Macdonald MD Work Phone: [facility] 06-27-2023 10:30-0400 Systolic blood pressure 141 mm[Hg] Heidi Macdonald MD Work Phone: [facility] 05-23-2023 09:45-0400 Body height 167.64 cm Roland Ball Other [facility] Other 05-23-2023 09:45-0400 Body mass index (BMI) [Ratio] 24.79 kg/m2 Roland Ball Other [facility] Other 05-23-2023 09:45-0400 Body weight 69.67 kg Roland Ball Other [facility] Other 05-23-2023 09:45-0400 Diastolic blood pressure 78 mm[Hg] Roland Ball Other [facility] Other 05-23-2023 09:45-0400 Respiratory rate 12 /min Roland Ball Other [facility] Other 05-23-2023 09:45-0400 Systolic blood pressure 158 mm[Hg] Roland Ball Other [facility] Other 04-23-2023 13:30-0400 Body height 167.64 cm Roland Ball Other [facility] Other 04-23-2023 13:30-0400 Body mass index (BMI) [Ratio] 24.34 kg/m2 Roland Ball Other [facility] Other 04-23-2023 13:30-0400 Body weight 68.4 kg Roland Ball Other [facility] Other 04-23-2023 13:30-0400 Diastolic blood pressure 74 mm[Hg] Roland Ball Other [facility] Other 04-23-2023 13:30-0400 Respiratory rate 12 /min Roland Ball Other [facility] Other 04-23-2023 13:30-0400 Systolic blood pressure 131 mm[Hg] Roland Ball Other [facility] Other 03-05-2023 09:30-0400 Body height 167.6 cm Juan Manuel Pack HEALTH PHYSICIST.PALLIATIVE CARE PHYSICIAN Work Phone: [facility] 03-05-2023 09:30-0400 Body weight 70.22 kg Juan Manuel Pack HEALTH PHYSICIST.PALLIATIVE CARE PHYSICIAN Work Phone: [facility] 03-05-2023 09:30-0400 Diastolic blood pressure 90 mm[Hg] Juan Manuel Pack HEALTH PHYSICIST.PALLIATIVE CARE PHYSICIAN Work Phone: [facility] 03-05-2023 09:30-0400 Heart rate 85 /min Juan Manuel Pack HEALTH PHYSICIST.PALLIATIVE CARE PHYSICIAN Work Phone: [facility] 03-05-2023 09:30-0400 Systolic blood pressure 152 mm[Hg] Juan Manuel Pack HEALTH PHYSICIST.PALLIATIVE CARE PHYSICIAN Work Phone: [facility] 01-24-2023 08:45-0500 Body height 167.64 cm Roland Ball Other [facility] Other 01-24-2023 08:45-0500 Body mass index (BMI) [Ratio] 24.05 kg/m2 Roland Ball Other [facility] Other 01-24-2023 08:45-0500 Body temperature 96.7 [degF] Roland Ball Other [facility] Other 01-24-2023 08:45-0500 Body weight 67.59 kg Roland Ball Other [facility] Other 01-24-2023 08:45-0500 Diastolic blood pressure 93 mm[Hg] Roland Serrano Other [facility] Other 01-24-2023 08:45-0500 Systolic blood pressure 165 mm[Hg] Roland Serrano Other [facility] Other 01-20-2023 13:35-0500 Body height 167.64 cm Olya Gann Other [facility] Other 01-20-2023 13:35-0500 Body mass index (BMI) [Ratio] 24.53 kg/m2 Olya Alonzoault Other [facility] Other 01-20-2023 13:35-0500 Body temperature 97.3 [degF] Olya Sanjuanita Other [facility] Other 01-20-2023 13:35-0500 Body weight 68.95 kg Olya Gann Other [facility] Other 01-20-2023 13:35-0500 Respiratory rate 18 /min Olya Gann Other [facility] Other 01-20-2023 13:35-0500 SaO2% (BldA) [Mass fraction] 95 % Olyacameron Gann Other [facility] Other 01-03-2023 15:27-0500 Body height 167.6 cm Henry Ramos MD Work Phone: [facility] 01-03-2023 15:27-0500 Body temperature 97.81 [degF] Henry Ramos MD Work Phone: [facility] 01-03-2023 15:27-0500 Body weight 71.17 kg Henry Ramos MD Work Phone: [facility] 01-03-2023 15:27-0500 Diastolic blood pressure 87 mm[Hg] Henry Ramos MD Work Phone: [facility] 01-03-2023 15:27-0500 Heart rate 95 /min Henry Ramos MD Work Phone: [facility] 01-03-2023 15:27-0500 SaO2% (BldA) [Mass fraction] 99 % Henry Ramos MD Work Phone: [facility] 01-03-2023 15:27-0500 Systolic blood pressure 141 mm[Hg] Henry Ramos MD Work Phone: [facility] 09-26-2022 12:30-0500 Diastolic blood pressure 89 mm[Hg] Leila Alamo MD Work Phone: [facility] 09-26-2022 12:30-0500 Heart rate 79 /min Leila Alamo MD Work Phone: [facility] 09-26-2022 12:30-0500 Respiratory rate 18 /min Leila Alamo MD Work Phone: [facility] 09-26-2022 12:30-0500 SaO2% (BldA) [Mass fraction] 98 % Leila Alamo MD Work Phone: [facility] 09-26-2022 12:30-0500 Systolic blood pressure 140 mm[Hg] Leila Alamo MD Work Phone: [facility] 09-26-2022 11:25-0500 Body height 167.6 cm Leila Alamo MD Work Phone: [facility] 09-26-2022 11:25-0500 Body temperature 98.2 [degF] Leila Alamo MD Work Phone: [facility] 09-26-2022 11:25-0500 Body weight 68.04 kg Leila Alamo MD Work Phone: [facility] 08-07-2022 15:28-0400 Body weight 68.95 kg Henry Ramos MD Work Phone: [facility] 08-07-2022 15:28-0400 Diastolic blood pressure 91 mm[Hg] Henry Ramos MD Work Phone: [facility] 08-07-2022 15:28-0400 SaO2% (BldA) [Mass fraction] 98 % Henry Ramos MD Work Phone: [facility] 08-07-2022 15:28-0400 Systolic blood pressure 132 mm[Hg] Hnery Ramos MD Work Phone: [facility] 03-13-2022 14:38-0400 Body height 169.5 cm Henry Ramos MD Work Phone: [facility] 03-13-2022 14:38-0400 Body temperature 96.8 [degF] Henry Ramos MD Work Phone: [facility] 03-13-2022 14:38-0400 Body weight 66.32 kg Henry Ramos MD Work Phone: [facility] 03-13-2022 14:38-0400 Diastolic blood pressure 96 mm[Hg] Henry Ramos MD Work Phone: [facility] 03-13-2022 14:38-0400 Heart rate 85 /min Henry Ramos MD Work Phone: [facility] 03-13-2022 14:38-0400 Respiratory rate 16 /min Henry Ramos MD Work Phone: [facility] 03-13-2022 14:38-0400 SaO2% (BldA) [Mass fraction] 98 % Henry Ramos MD Work Phone: [facility] 03-13-2022 14:38-0400 Systolic blood pressure 151 mm[Hg] Henry Ramos MD Work Phone: [facility] 07-07-2021 14:50-0400 Diastolic blood pressure 101 mm[Hg] Mayra Michel MD Work Phone: [facility] Work Phone: 07-07-2021 14:50-0400 Heart rate 70 /min Mayra Michel MD Work Phone: [facility] Work Phone: 07-07-2021 14:50-0400 Respiratory rate 13 /min Mayra Michel MD Work Phone: [facility] Work Phone: 07-07-2021 14:50-0400 SaO2% (BldA) [Mass fraction] 99 % Mayra Michel MD Work Phone: [facility] Work Phone: 07-07-2021 14:50-0400 Systolic blood pressure 133 mm[Hg] Mayra Michel MD Work Phone: [facility] Work Phone: 07-07-2021 13:25-0400 Body height 167.6 cm Mayra Michel MD Work Phone: [facility] Work Phone: 07-07-2021 13:25-0400 Body mass index (BMI) [Ratio] 24.19 kg/m2 Mayra Michel MD Work Phone: [facility] Work Phone: 07-07-2021 13:25-0400 Body temperature 98.6 [degF] Mayra Michel MD Work Phone: [facility] Work Phone: 07-07-2021 13:25-0400 Body weight 67.99 kg Mayra Michel MD Work Phone: [facility] Work Phone: 11-25-2019 16:19-0500 Body weight 70.4 Kg [facility] Comment on above: Performed By: #### 1000, 4500, 4510, 452 0, 20679, 5000, [id number], [id number] #### [facility] Unless Otherwise Noted [address] [place] [address] / COLA #[id number]/LAKIA # [id number] Encounters Encounter Date Encounter Type Care Provider Facility Start: 10-23-2023 End: 10-23-2023 ambulatory Roland Serrano Other [facility] Other Start: 10-23-2023 Telephone encounter Roland Serrano [facility] Start: 10-02-2023 End: 10-02-2023 ambulatory LEIGH MORENO Not Available Start: 09-29-2023 End: 09-30-2023 ambulatory ROLAND Bernie MAGGIE Facility:[facility] Start: 09-29-2023 End: 09-29-2023 Patient encounter procedure Jackson Valente DO Work Phone: Colorectal Surgery Comment on above: Radiation proctitis (Primary Dx); Endometrial cancer (HCC) Start: 09-21-2023 End: 09-21-2023 ambulatory Roland Serrano Other [facility] Other Start: 09-21-2023 Telephone encounter [facility] Start: 09-18-2023 End: 09-18-2023 ambulatory Roland eSrrano Other [facility] Other Start: 09-18-2023 Telephone encounter [facility] Start: 09-17-2023 End: 09-17-2023 ambulatory Roland Serrano Other [facility] Other Start: 09-17-2023 Telephone encounter [facility] Start: 09-15-2023 End: 09-15-2023 ambulatory Roland Serrano Other [facility] Other Start: 09-15-2023 Telephone encounter Roland Serrano [facility] Start: 09-14-2023 End: 09-14-2023 ambulatory Roland Serrano Other [facility] Other Start: 09-14-2023 Telephone encounter Roland Serrano [facility] Start: 09-12-2023 End: 09-12-2023 ambulatory Roland Serrano Other [facility] Other Start: 09-12-2023 Encounter for genera l adult medical examination without abnormal findings Roland Serrano [facility] Start: 09-12-2023 Periodic preventive med est patient 40-64yrs Roland Serrano [facility] Start: 09-10-2023 End: 09-10-2023 ambulatory Roland Serrano Other [facility] Other Start: 09-10-2023 Telephone encounter Roland Serrano [facility] Start: 09-03-2023 End: 09-03-2023 ambulatory Roland Serrano Other [facility] Other Start: 09-03-2023 Telephone encounter Roland Serrano [facility] Start: 09-02-2023 Telephone encounter Roland Serrano [facility] Start: 09-02-2023 End: 09-02-2023 ambulatory ROLAND E BALL [facility] Other Start: 09-01-2023 End: 09-01-2023 ambulatory Roland Maggie Other [facility] Other Start: 09-01-2023 Telephone encounter Roland Ball [facility] Start: 08-29-2023 End: 08-29-2023 ambulatory ROLAND E BALL Facility:[facility] Start: 08-29-2023 End: 08-30-2023 ambulatory ROLAND E BALL Facility:[facility] Start: 08-29-2023 Encounter for other preprocedural examination ELDER GALAN [facility] Start: 08-29-2023 End: 08-29-2023 ambulatory ROLAND SERRANO Facility:[facility] Start: 08-29-2023 End: 08-29-2023 Preprocedural examination done Elder Galan APRN.CNP Work Phone: [facility] Work Phone: Start: 08-29-2023 End: 08-29-2023 ambulatory Pulm Fct Lab Main 8 Pulmonary Medicine Comment on above: Spirometry Start: 08-29-2023 End: 08-29-2023 Patient encounter procedure Pulm Fct Lab Main 8 [facility] Comment on above: Dyspnea and respirat ory abnormalities (Primary Dx); Calcified nodule; Iron deficiency anemia due to chronic blood loss Pre-op evaluation (P rimary Dx) Start: 08-29-2023 End: 08-29-2023 Subsequent hospital visit by physician Xr Chest Main A21 Radiology Comment on above: Dyspnea, unspecified type [R06.00] Start: 08-26-2023 Orders Only Heidi Macdonald MD Work Phone: [facility] Comment on above: ILD (interstitial lamont ng disease) (HCC) (Primary Dx) Start: 08-22-2023 ambulatory South rincon DO Work Phone: [facility] Start: 08-22-2023 Patient encounter procedure [place] Saba DO Work Phone: Colorectal Surgery Comment on above: Pre op appointment Start: 08-22-2023 End: 08-22-2023 Subsequent hospital visit by physician [facility] ([facility]) Work Phone: [facility] Radiology CT Scan Comment on above: Interstitial pulmona ry disease (HCC) [J84.9] Start: 08-14-2023 ambulatory ROLAND SERRANO Facilit y:[facility] Start: 08-04-2023 End: 08-04-2023 ambulatory Roland Serrano Other [facility] Other Start: 08-04-2023 Office outpatient vi sit 15 minutes Roland Serrano [facility] Start: 07-22-2023 ambulatory South Rendon estuardobernie DO Work Phone: Colorectal Surgery Start: 07-22-2023 Telephone encounter [place] Saba DO Work Phone: Colorectal Surgery Comment on above: Patient Update Start: 07-08-2023 End: 07-08-2023 ambulatory Roland Serrano Other [facility] Other Start: 07-08-2023 Telephone encounter Roland VOGT [facility] Start: 07-04-2023 End: 07-05-2023 ambulatory South Saba [...] procedure Pulm Fct Lab Main 9 [facility] Comment on above: Interstitial pulmona ry disease (HCC) (Primary Dx); Other secondary pulmonary hypertension (HCC) Start: 05-26-2023 ambulatory Henry perales MD Work Phone: Gynecology Oncology Comment on above: Procitis Start: 05-23-2023 End: 05-23-2023 ambulatory Roland Serrano Other [facility] Other Start: 05-23-2023 Office outpatient vi sit 15 minutes Roland Maggie [facility] Start: 05-13-2023 End: 05-13-2023 ambulatory Roland Serrano Other [facility] Other Start: 05-13-2023 Telephone encounter Roland VOGT [facility] Start: 04-23-2023 End: 04-23-2023 ambulatory Roland Serrano Other [facility] Other Start: 04-23-2023 Patient encounter procedure Roland Serrano [facility] Start: 03-25-2023 End: 03-25-2023 ambulatory Roland Serrano Other [facility] Other Start: 03-25-2023 Telephone encounter Roland Serrano FP [facility] Start: 03-21-2023 Telephone encounter Roland VOGT [facility] Start: 03-21-2023 End: 03-22-[address] ROLAND SERRANO [facility] Other Start: 03-11-2023 End: 03-11-2023 ambulatory Roland Serrano Other [facility] Other Start: 03-11-2023 Telephone encounter Roland Serrano [facility] Start: 03-10-2023 End: 03-11-[address] ROLAND SERRANO [facility] Other Start: 03-10-2023 Telephone encounter Roland Serrano FP [facility] Start: 03-05-2023 End: 03-05-2023 ambulatory ROLAND Bernie MAGGIE Facility:[facility] Start: 03-05-2023 End: 03-05-2023 Patient encounter procedure Juan Manuel Medina APRN.PALLIATIVE CARE PHYSICIAN Work Phone: Gastroenterology Comment on above: Rectal bleeding (Vivi nicho Dx) Start: 01-24-2023 End: 01-24-2023 ambulatory Roland Serrano Other [facility] Other Start: 01-24-2023 Office outpatient vi sit 15 minutes Roland Serrano [facility] Start: 01-23-2023 End: 01-23-2023 ambulatory Roland Serrano Other [facility] Other Start: 01-23-2023 Telephone encounter Roland Serrano TORIE [facility] Start: 01-20-2023 Office outpatient vi sit 15 minutes Olya Gann [facility] Start: 01-20-2023 End: 01-20-[address] ROLAND SERRANO [facility] Other Start: 01-07-2023 End: 01-07-2023 ambulatory Roland Serrano Other [facility] Other Start: 01-07-2023 Telephone encounter Roland Serrano [facility] Start: 01-03-2023 End: 01-04-2023 ambulatory ROLAND SERRANO Facility:[facility] Start: 01-03-2023 End: 01-04-2023 ambulatory ROLAND SERRANO Facility:[facility] Start: 01-03-2023 End: 01-04-2023 ambulatory Henry Ramos MD Work Phone: Gynecology Oncology Comment on above: Recurrent carcinoma of endometrium (HCC) (Primary Dx); Radiation proctitis; Blood per rectum Start: 01-03-2023 End: 01-04-2023 Patient encounter procedure Henry Ramos MD Work Phone: [facility] Start: 12-25-2022 Telephone encounter Aretha Pena [...] examination without abnormal findings DR ROLAND SERRANO [facility] Start: 09-04-2022 End: 09-05-[address] ROLAND SERRANO Facility:[facility] Start: 09-04-2022 End: 09-05-2022 Encounter for general adult medical examination without abnormal findings DR ROLAND SERRANO Facility:[facility] Start: 08-29-2022 Adult health examination Roland Serrano Other [facility] Other Start: 08-29-2022 Encounter for genera l adult medical examination without abnormal findings Roland Serrano Other [facility] Other Start: 08-29-2022 Pre-procedure evaluation check Roland Serrano Other [facility] Other Start: 08-07-2022 End: 08-07-2022 ambulatory Henry Ramos MD Work Phone: Gynecology Oncology Comment on above: Recurrent carcinoma of endometrium (HCC) (Primary Dx); Radiation proctitis; Foreshortening of vagina; Endometrial cancer (HCC); Vaginal atrophy; Rectal bleeding Start: 08-07-2022 End: 08-07-2022 Patient encounter procedure Henry Ramos MD Work Phone: [facility] Start: 06-12-2022 End: 06-12-2022 ambulatory SALOMON AYAZ Facility: Start: 03-13-2022 End: 03-13-2022 ambulatory Henry Ramos MD Work Phone: Gynecology Oncology Comment on above: Recurrent carcinoma of endometrium (HCC) (Primary Dx); Vaginal atrophy; Foreshortening of vagina Start: 03-13-2022 End: 03-13-2022 Patient encounter procedure Henry Ramos MD Work Phone: [facility] Start: 11-21-2021 End: 11-22-2021 Emergency department patient visit GRANGER Bernie [facility] Start: 07-07-2021 End: 07-07-2021 Emergency department patient visit [facility] Start: 07-07-2021 End: 07-07-2021 Emergency department patient visit Mayra Michel MD Work Phone: [facility] ED Comment on above: Dizziness (Primary D x); Dehydration Procedures Date Procedure Procedure Detail Performing Clinician Start: 09-29-2023 Follow-up visit Follow Up [place] Start: 09-02-2023 Antibody screen BENJAMI N BALL Comment on above: Order Comment: Speci men Type: BLOOD SPECIMEN Ordering Facility: [facility] Address: [address] [address] Performed By: #### 5 [id number], [id number] #### [facility] CLIA [id number] [address] [place] [address] Start: 08-29-2023 Antibody screen JUAN SERRANO Comment on above: Order Comment: Speci men Type: BLOOD SPECIMEN Ordering Facility: [facility] Address: [address] [address] Performed By: #### 5 [id number], [id number] #### [facility] CLIA [id number] [address] [place] [address] Start: 08-29-2023 Spmtry w/vc expirato ry bernie [...] w /collj spec when pfrmd Ernesto Chacko HEALTH PHYSICIST.PALLIATIVE CARE PHYSICIAN Work Phone: Start: 09-26-2022 Colonoscopy Leila Alamo MD Work Phone: Start: 11-02-2021 Antibody screen Comment on above: Order Comment: Trans fuse now? N Result Comment: PERF ORMED BY: [facility] [address] [place] [address] PATHOLOGIST [employer] OPERATOR CLAIRE ANTHONY M.D. Start: 10-15-2021 Antibody screen Comment on above: Order Comment: Date of Surgery: [id number] # of PRBC units on hold?: 2 Result Comment: PERF ORMED BY: [facility] [place] [address] PATHOLOGIST [employer] OPERATOR CLAIRE ANTHONY M.D. Start: 09-20-2021 Adult depression scr eening assessment Henry Ramos MD Work Phone: Start: 08-20-2021 Antibody screen Comment on above: Order Comment: Date of Surgery: [id number] # of PRBC units on hold?: 2 Result Comment: PERF ORMED BY: [facility] [address] [place] [address] PATHOLOGIST [employer] OPERATOR CLAIRE ANTHONY M.D. Start: 07-07-2021 Urinalysis microscopic [...] Author Start: 08-29-2026 Diabetes Screening Diabetes Screenin [facility] Start: 07-04-2026 DIABETES SCREEN DIABETES SCREEN [facility] Start: 07-04-2026 Diabetes Screening Diabetes Screenin [facility] Start: 09-26-2023 Colonoscopy COLONOSCOPY [facility] Start: 09-26-2023 COLORECTAL CANCER SCREENING COLORECTAL CANCER SCREENING [facility] Start: 08-26-2023 End: 09-24-2024 SPIROMETRY BASELINE ONLY SPIROMETRY BASELINE ONLY PFT Routine ILD (interstitial lung disease) (HCC) Expected: 08/26/2023, Expires: 09/24/2024 [facility] Work Phone: Comment on above: Expected: 08/26/2023 , Expires: 09/24/2024 Start: 07-22-2023 End: 09-21-2023 CBC W Auto Differential panel - Blood CBC + DIFF Lab Routine Radiation proctitis Expected: 07/22/2023, Expires: 09/21/2023 [facility] Work Phone: Comment on above: Expected: 07/22/2023 , Expires: 09/21/2023 Start: 07-22-2023 End: 09-21-2023 Comprehensive metabolic 2000 panel - Serum or Plasma COMP METABOLIC PANEL Lab Routine Radiation proctitis Expected: 07/22/2023 (Approximate), Expires: 09/21/2023 [facility] Work Phone: Comment on above: Expected: 07/22/2023 (Approximate), Expires: 09/21/2023 Start: 07-18-2023 Covid-19 Vaccine ( season) Covid-19 Vaccine () [facility] Start: 07-18-2023 Influenza vaccination [facility] Start: 11-17-2022 [facility] Start: 09-20-2022 Adult depression scr eening assessment DEPRESSION SCREENING [facility] Start: 08-12-2022 DIABETES SCREEN DIABETES SCREEN [facility] Start: 08-07-2022 End: 10-07-2022 CBC W Auto Differential panel - Blood CBC + DIFF Lab Routine Rectal bleeding Expected: 08/07/2022, Expires: 10/07/2022 [facility] Work Phone: Comment on above: Expected: 08/07/2022 , Expires: 10/07/2022 Start: 07-18-2022 Influenza vaccination [facility] Start: 11-27-2021 COVID-19 VACCINE (3 - Booster for Moderna series) COVID-19 VACCINE (3 - Booster for Moderna series) [facility] Start: 11-17-2021 DEPRESSION ASSESSMENT DEPRESSION ASS ESSMENT [facility] Start: 08-22-2021 COVID-19 VACCINE (3 - Booster for Moderna series) COVID-19 VACCINE (3 - Booster for Moderna series) [facility] Start: 08-22-2021 COVID-19 VACCINE (3 - Moderna series) COVID-19 VACCINE (3 - Moderna series) [facility] Start: 07-18-2021 Influenza vaccination Flu vaccine (# 1) [facility] Work Phone: Start: 2020 RSV Vaccine (1 - 1-d ose 60+ series) RSV Vaccine (1 - 1-dose 60+ series) [facility] Start: 2010 SHINGRIX VACCINE (1 of 2) [place] GRIX VACCINE (1 of 2) [facility] Start: 2005 COLOGUARD (FIT-DNA) COLOGUARD (FIT-D NA) [facility] Start: 2005 Colonoscopy COLONOSCOPY [facility] Start: 2005 COLORECTAL CANCER SCREENING COLORECTAL CANCER SCREENING [facility] Start: [address] COLONOGRAPHY [facility] Start: 2005 FECAL OCCULT BLOOD FECAL OCCULT BLOO D [facility] Start: 2005 Lipid 1996 panel - S marcela or Plasma Lipid Screening [facility] Start: 2005 LIPID SCREEN LIPID SCREEN [facility] Start: 2005 SIGMOIDOSCOPY SIGMOIDOSCOPY [facility] Start: 2000 Mammography [facility] Start: 1990 HPV TESTING HPV TESTING [facility] Start: 1981 PAP TESTING PAP TESTING [facility] Start: 1979 Urine microalbumin profile [facility] Start: 1978 ANNUAL PCP TEAM DELIVERY TECH SHAILA DISEASE VISIT ANNUAL PCP TEAM CHRONIC DISEASE VISIT [facility] Start: 1978 BP CONTROLLED (<130/80) BP CONTROLLE D (<130/80) [facility] Start: 1978 HEPATITIS C SCREENING HEPATITIS C SC ADELAIDA [facility] Start: 1978 HIV SCREENING HIV SCREENING [facility] End: 03-05-2024 Colonoscopy COLONOSCOPY (THERAPEUTIC) Endoscopy Routine Rectal bleeding 1 Occurrences starting 03/05/2023 until 03/05/2024 [facility] Work Phone: Comment on above: 1 Occurrences starti ng 03/05/2023 until 03/05/2024 End: 07-26-2024 Ct thorax w/o contrast material CT CHEST WO IVCON Radiology Routine Interstitial pulmonary disease (HCC) 1 Occurrences starting 06/27/2023 until 07/26/2024 [facility] [employer] Work Phone: Comment on above: 1 Occurrences starti ng 06/27/2023 until 07/26/2024 End: 07-07-2021 Culture, Urine Culture, Urine Microbiology Routine Once for 1 Occurrences starting 07/07/2021 until 07/07/2021 [facility] Work Phone: Comment on above: Once for 1 Occurrenc es starting 07/07/2021 until 07/07/2021 Culture, Urine Culture, Urine Microbiology Routine 07/07/2021 2:00 PM EDT [facility] Work Phone: End: 06-27-2024 Echocardiography ECHO Cardiology Routine Other secondary pulmonary hypertension (HCC) 1 Occurrences starting 06/27/2023 until 06/27/2024 [facility] Work Phone: Comment on above: 1 Occurrences starti ng 06/27/2023 until 06/27/2024 H&P for surgery H&P FOR SURGERY Procedures Routine Radiation proctitis Ordered: 07/22/2023 [facility] Work Phone: Comment on above: Ordered: 07/22/2023 End: 07-26-2024 LUNG DIFFUSION CAPACITY (DLCO) LUNG DIFFUSION CAPACITY (DLCO) PFT Routine Interstitial pulmonary disease (HCC) 1 Occurrences starting 06/27/2023 until 07/26/2024 [facility] Work Phone: Comment on above: 1 Occurrences starti ng 06/27/2023 until 07/26/2024 LUNG DIFFUSION CAPAC ITY (DLCO) LUNG DIFFUSION CAPACITY (DLCO) PFT Routine Interstitial pulmonary disease (HCC) 08/29/2023 9:27 AM EDT [facility] Work Phone: End: 07-26-2024 LUNG VOLUMES LUNG VOLUMES PFT Routine Interstitial pulmonary disease (HCC) 1 Occurrences starting 06/27/2023 until 07/26/2024 [facility] Work Phone: Comment on above: 1 Occurrences starti ng 06/27/2023 until 07/26/2024 End: 07-26-2024 Pulmonary ventilation & perfusion imaging NM LUNG VENT / PERF VQ Radiology Routine Other secondary pulmonary hypertension (HCC) 1 Occurrences starting 06/27/2023 until 07/26/2024 [facility] Work Phone: Comment on above: 1 Occurrences starti ng 06/27/2023 until 07/26/2024 REFER FOR ADMIT INTERVIEW REFER FOR ADMIT INTERVIEW Procedures Routine Radiation proctitis Ordered: 07/22/2023 [facility] Work Phone: Comment on above: Ordered: 07/22/2023 End: 08-07-2023 Screening colonoscopy COLONOSCOPY SCREENING Endoscopy Routine Rectal bleeding 1 Occurrences starting 08/07/2022 until 08/07/2023 [facility] Work Phone: Comment on above: 1 Occurrences starti ng 08/07/2022 until 08/07/2023 End: 09-26-2022 Screening colonoscopy COLONOSCOPY SCREENING Endoscopy Routine Rectal bleeding 1 Occurrences starting 09/26/2022 until 09/26/2022 [facility] Work Phone: Comment on above: 1 Occurrences starti ng 09/26/2022 until 09/26/2022 SPIROMETRY BASELINE ONLY SPIROME TRY BASELINE ONLY PFT Routine ILD (interstitial lung disease) (HCC) 08/29/2023 9:27 AM EDT [facility] Work Phone: SPIROMETRY WITH DILA TOR IF OBSTRUCTED SPIROMETRY WITH DILATOR IF OBSTRUCTED PFT Routine Dyspnea, unspecified type 06/27/2023 10:15 AM EDT [facility] Work Phone: [facility] Immunizations Immunization Date Immunization Notes Care Provider Fa hector 06-27-2021 COVID-19 vaccine, fu ll dose (MODERNA) Henry Ramos MD Work Phone: [facility] 11-21-2020 COVID-19 vaccine, fu ll dose (MODERNA) Henry Ramos MD Work Phone: [facility] Payers Date Payer Category Payer Unknown MMO MMO [employer] [id number] 2020-Present [phone] [address] [place] [address] PPO [id number] 2020 Unknown [id number] 1960 Unknown [id number] 74 1960 Unknown [id number] 74 1960 Unknown [id number] 93 1960 Unknown [id number] 93 1960 Unknown [id number] 93 1960 Unknown [id number] 93 1960 Unknown [id number] 93 1960 Unknown [id number] 93 1960 Unknown [id number] 93 1960 Unknown [id number] 259 1959 [facility] [id number] 1959 Unknown [id number] Social History Date Type Detail Facility Start: 07-07-2021 End: 08-07-2022 Tobacco smoking status NHIS Never smoker [facility] Start: 07-07-2021 End: 08-07-2022 Tobacco use and exposure Never used [facility] Start: 1960 Sex Assigned At Not on file [facility] [employer] Work Phone: Start: 03-03-2022 End: 09-26-2022 Exposure to SARS-CoV-2 (event) Not sure [facility] Start: 03-13-2022 End: 09-29-2023 Alcohol intake Current drinker of alcohol (finding) [facility] Start: 07-28-2019 History SDOH Alcohol Comment 3 drinks per month [facility] Start: 03-05-2023 End: 06-27-2023 Sex Assigned At [facility] Start: 03-05-2023 End: 06-27-2023 History of Social function [facility] Adult Depression Screening Assessment 0 [facility] Clinical Notes 03-13-2022 to 10-23-2023 Note Date & Type Note Facility 10-23-2023 Evaluation note Encounter Date Diagnosis Assessment Notes Oct, Iron deficiency anemia due to chronic blood loss (ICD-10 - D50.0) Oct, Decreased thyroid stimulating hormone (TSH) level (ICD-10 - R79.89) Oct, Pulmonary hypertension (ICD-10 - I27.20) [facility] Other 11-13-2023 NoteHNO ID: [id number] Author: [place], DO Service: ? Author [...] mortality and/or complications of treatment plan: low [facility]11-13-2023 History of Present illness Narrative* South [...] of treatment plan: low documented in this encounterPremier Health [facility]11-05-2023 Evaluation note* Encounter Date Diagnosis Assessment Notes Treatment Notes Treatment Clinical Notes Sep, Iron deficiency anemia due to chronic blood loss (ICD-10 - D50.0) Sep, 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) [facility] Other 11-01-2023 Evaluation note* Encounter Date Diagnosis Assessment Notes Treatment Notes Treatment Clinical Notes Sep, Elevated liver enzymes (ICD-10 - R74.8) Sep, Cholestasis (ICD-10 - K83.1) Sep, Thyrotoxicosis 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 storm, 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 - E05.90) [facility] Other 10-30-2023 Evaluation note* Encounter Date Diagnosis Assessment Notes Treatment Notes Treatment Clinical Notes Aug, Decreased thyroid stimulating hormone (TSH) level (ICD-10 - R79.89) [facility] Other 10-27-2023 Evaluation note* Encounter Date Diagnosis [...] Ferritin May be candidate for Fe IV [facility] Other 10-18-2023 Evaluation note* Encounter Date Diagnosis Assessment Notes Treatment Notes Treatment Clinical Notes Aug, Radiation proctitis (ICD-10 - K62.7) Aug, Iron deficiency anemia due to chronic blood loss (ICD-10 - D50.0) [facility] Other 10-17-2023 NoteHNO ID: [id number] Author: Brannon Sung APRN.ALIN Service: ? Author Type: Nurse Office Machine Technician Type: Anesthesia Procedure Notes Filed: 09/02/2023 8:05 AM Note Text: ANESTHESIOLOGY PROCEDURE NOTE Airway General Information Procedure Start Time/Medication Administration: 09/02/2023 7:58 AM Patient location during procedure: OR Timeout Performed Pre-procedure: timeout performed Consent Obtained: Yes Patient identity confirmed: arm band, care support team assoc and patient Staffing DIRECTOR HEART: Brannon Sung APRN.DIRECTOR HEART Performed by: ALIN Indications and Patient Condition [...] no Airway not difficult SIGNATURE: Brannon Sung APRN.DIRECTOR HEART PATIENT NAME: Isabel Waddell DATE: September 02, 2023 TIME: 8:05 AM CSN: [id number] note * Encounter Date Diagnosis Assessment Notes Treatment Notes Treatment Clinical Notes Aug, Dilated cardiomyopathy (ICD-10 - I42.0) Echo: LVEF normal, RVSP 31, LAE [facility] Other 10-13-2023 NoteHNO ID: [id number] Author: Heidi Menard MD Service: ? Author Type: Fellow Type: Progress Notes Filed: 08/29/2023 4:02 PM Note Text: Ms. Waddell is a 63 year old female who presents to the [facility]. 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 Author Type: Registered Resp Therapist Type: Progress Notes Filed: 08/29/2023 9:52 AM Note Text: PULM FUNCTION SMARTBLOCK: Provider: Mike Presley MD Spirometry: 1 DLCO: 1 LV - Box: [facility] History and physical note* Elder Galan, HEALTH PHYSICIST.PALLIATIVE CARE PHYSICIAN - 08/29/2023 11:00 AM EDT COLON AND [...] of treatment plan: high documented in this encounterPremier Health [facility]10-13-2023 NoteHNO ID: [id number] Author: Marshal Vasquez RT(R) Service: ? Author [...] BY: RT Tammy(R) August 29, 2023 9:[address] [facility]10-13-2023 History of Present illness Narrative* Heidi Menard MD - 08/29/2023 10:00 AM EDT Images from the original note were not included. Ms. Waddell is a 63 year old female who presents to the [facility]. 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 that Hobbies:Biking Vacation: [place], [place] No significant exposure history except local [...] MULTIVITAMIN TAB^Take one(1) tablet daily.^Disp: ^Rfl: 0 [id number]-QIK-EIV-FISH OIL-L.CASEI ORAL^Take by mouth once daily.^Disp: ^Rfl: [...] personally reviewed by me Data Reviewed from [facility] (in addition to that noted in HPI, [...] MD Pulmonary and Critical Care Fellow [facility] Staff note: I have personally interviewed and [...] Hilton Adame MD 08/29/2023 documented in this encounterPremier Health [facility]10-13-2023 History of Present illness Narrative* Sveta Roman RRT - 08/29/2023 9:52 AM EDT PULM FUNCTION SMARTBLOCK: Provider: Mike Presley MD Spirometry: 1 DLCO: 1 LV - Box: 1 documented in this encounterPremier Health [facility]10-13-2023 History of Present illness Narrative* Marshal Vasquez [...] 29, 2023 9:10 AM documented in this encounterPremier Health [facility]10-10-2023 NoteHNO ID: [id number] Author: Gilberto Beth Service: ? Author Type: ? Type: Progress Notes Filed: 08/26/2023 4:28 PM Note Text: [place] to pair w dlco/lv [facility] f[facility]2023 History of Present illness Narrative* Gilberto Beth - 08/26/2023 4:16 PM EDT [place] to pair w dlco/lv on upcoming f/u visit documented in this encounterPremier Health [facility]10-06-2023 NoteHNO ID: [id number] Author: Nuvia Grewal RT(R) Service: Radiology Author Type: Farebox Repairer Type: Progress Notes Filed: 08/22/2023 8:34 AM [...] BY: DAVID Ann) August 22, 2023 8:33 AMBrigham City Community [id number] History of Present illness Narrative* Nuvia Grewal [...] 22, 2023 8:33 AM documented in this encounterPremier Health [facility]09-18-2023 Evaluation note* Encounter Date Diagnosis Assessment Notes [...] symptoms. Will initiate antibiotics and have called [facility]. Since her symptoms developed > 5 days ago, no Paxlovid has been prescribed Jul, Bronchitis, not specified as acute or chronic (ICD-10 - J40) Instructed to use Robitussin or Mucinex for cough, saline or Flonase NS for congestion, Tylenol for pain and fever. [facility] Other 09-05-2023 Miscellaneous Notes* Telephone Encounter - Divya Karimi - 07/22/2023 3:17 PM EDT Isabel Waddell accepts 09/01 and 09/02 dates for preop and surgery documented in this encounterPremier Health [facility]09-05-2023 Miscellaneous Notes* Telephone Encounter - Enid Baker - 07/22/2023 2:48 PM EDT [phone] Patient calling to reschedule her EUA. documented in this encounterPremier Health [facility]08-22-2023 Evaluation note* Encounter Date Diagnosis Assessment Notes Treatment Notes Treatment Clinical Notes Jun, SHERIF (generalized anxiety disorder) (ICD-10 - F41.1) [facility] Other 08-18-2023 History and physical note* South [...] regular bowel movements. 03/05/23 Juan Manuel Medina, PALLIATIVE CARE PHYSICIAN: Isabel Waddell is a 62 year old [...] 150 mg by mouth daily at bedtime. NZNN2-YEW-ZVA-FISH OIL-L.CASEI ORAL Take by mouth once daily. [...] Documents Reviewed/ordered: Review of prior notes from [facility]FORMAT[facility] ANALYST[facility]ON[facility], pulmonary medicine Review of prior operative reports [...] of treatment plan: high documented in this encounterPremier Health [facility]08-11-2023 NoteHNO ID: [id number] Author: Heidi Menard MD Service: ? Author Type: Fellow Type: Progress Notes Filed: 06/29/2023 8:14 AM Note Text: Ms. Waddell is a 63 year old female who presents to the [facility]. Consultation requested by Self. 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 Silica: No significant exposure. [place]: No significant exposure. Organic HP antigen: No [...] Rectal, Enteric Tube, Stom (more content not included)...[facility]08-11-2023 NoteHNO ID: [id number] Author: Dayan Marley, FAMILIA Service: ? Author Type: Registered Resp Therapist Type: Progress Notes Filed: 06/27/2023 10:27 AM Note Text: PULM FUNCTION SMARTBLOCK: Provider: Pedro Rodarte MD Spirometry: 1 System: 3 - [id number] Community Hospital08-11-2023 History of Present illness Narrative* Heidi Menard MD - 06/27/2023 10:29 AM EDT Images from the original note were not included. Ms. Waddell is a 63 year old female who presents to the [facility]. Consultation requested by Self. 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 Silica: No significant exposure. [place]: No significant exposure. Organic HP antigen: No [...] 150 mg by mouth daily at bedtime. [id number]-XOZ-FISH OIL-L.CASEI ORAL Take by mouth once daily. [...] personally reviewed by me Data Reviewed from [facility] (in addition to that noted in HPI, [...] MD Pulmonary and Critical Care Fellow [facility] STAFF ATTENDING NOTE I have personally interviewed [...] Mike Thompson MD 06/29/2023 documented in this encounterPremier Health [facility]08-11-2023 History of Present illness Narrative* Dayan Marley RRT - 06/27/2023 10:26 AM EDT PULM FUNCTION SMARTBLOCK: Provider: Pedro Rodarte MD Spirometry: 1 System: 3 - [id number] documented in this encounterPremier Health [facility]07-07-2023 Evaluation note* Encounter Date Diagnosis Assessment Notes [...] and feet daily for blisters and ulcerations. [facility] Other 06-27-2023 Evaluation note* Encounter Date Diagnosis Assessment Notes Treatment Notes Treatment Clinical Notes Apr, History of total right hip replacement (ICD-10 - Z96.641) [facility] Other 06-07-2023 Evaluation note* Encounter Date Diagnosis [...] F41.1) Healthy diet, exercise and keep active [facility] Other 2023 Evaluation note* Encounter Date Diagnosis Assessment Notes Treatment Notes Treatment Clinical Notes March, Mild intermittent asthma without complication (ICD-10 - J45.20) [facility] Other 05-05-2023 Evaluation note* Encounter Date Diagnosis Assessment Notes Treatment Notes Treatment Clinical Notes March, Dyspnea on exertion (ICD-10 - R06.09) [facility] Other 04-24-2023 Evaluation note* Encounter Date Diagnosis Assessment Notes Treatment Notes Treatment Clinical Notes Feb, Shortness of breath (ICD-10 - R06.02) Feb, Subacute cough (ICD-10 - R05.2) [facility] Other 04-19-2023 Instructions* Patient Instructions* Juan Manuel Medina APRN.PALLIATIVE CARE PHYSICIAN - 03/05/2023 9:47 AM EDT Images from the original note were not included. Thank you for seeing me in clinic today. As we discussed, my recommendations are as follows: 1.Colonoscopy If you have any questions about the above treatment plan, please do not hesitate to call the officeor send me a AboutOnet message. Bowel Preparation Instructions for: Miralax-Gatorade Preparations [...] If you do not have a responsible driver education instructor (family member or friend) withyou to take you home, your exam cannot be done with sedation and will be cancelled. Please bring a list of all of your current medications, including any Lelz-jmt-Xvabwvn medications with you. Medications If you take [...] your exam. 2 10/2019 documented in this encounterPremier Health [facility]04-19-2023 History and physical note * Juan Manuel [...] Abs Lymph 1.00 - 4.00 k/uL 1.31 Lewis% % 11.1 Abs Lewis <0.87 k/uL 0.50 Eosin% % 3.1 Abs [...] 150 mg by mouth daily at bedtime. [id number]-FDG-RYM-FISH OIL-L.CASEI ORAL Take by mouth once daily. [...] -radiation proctitis?? This note was dictated using MVP Interactive speech recognition software and may contain some errors that were a result of the program not accurately transcribing what was dictated. Juan Manuel Medina APRN.MONSERRAT documented in this encounterPremier Health [facility]03-10-2023 Evaluation note* Encounter Date Diagnosis Assessment Notes Treatment Notes Treatment Clinical Notes Jan, Acute bronchitis due to other specified organisms (ICD-10 - J20.8) Instructed to use Robitussin or Mucinex for cough, saline or Flonase NS for congestion, Tylenol for pain and fever. [facility] Other 03-06-2023 Evaluation note* Encounter Date Diagnosis [...] weeks for the cough to go away [facility] Other 02-17-2023 NoteHNO ID: [id number] Author: Henry Ramos MD Service: ? Author Type: Physician Type: Progress Notes Filed: 01/12/2023 11:27 PM Note Text: Gynecologic Oncology [facility] Follow up visit Date of service: 01/03/2023 [...] differentiation, FIGO grade 2. Neg LVSI, 13% SC pT1a (IA): Tumor limited to endometrium or invades less than 1/2 of the myometrium 05/25/2021 Vaginal biopsy Vagina, biopsy - Consistent with endometrioid adenocarcinoma (see comment). GZ/ka 05/28/2021 COMMENT The tumor cells are diffusely and strongly positive for immunohistochemical stain for [place] 8, supporting the above diagnosis. The patient [...] 150 mg by mouth daily at bedtime. [id number]-JIK-FISH OIL-L.CASEI ORAL Take by mouth once daily. Lactobac no.41/Bifidobact no.7 (PROBIOTIC-10 ORAL) Take by mouth once daily. MULTIVITAMIN TAB Take (more content not included)...[facility] 01-03-2023 History of Present illness Narrative* Henry Ramos MD - 01/03/2023 3:20 PM EST Gynecologic Oncology [facility] Follow up visit Date of service: 01/03/2023 [...] differentiation, FIGO grade 2. Neg LVSI, 13% SC pT1a (IA): Tumor limited to endometrium or invades less than 1/2 of the myometrium 05/25/2021 Vaginal biopsy Vagina, biopsy - Consistent with endometrioid adenocarcinoma (see comment). GZ/fiorella 05/28/2021 COMMENT The tumor cells are diffusely and strongly positive for immunohistochemical stain for [place] 8, supporting the above diagnosis. The patient [...] 150 mg by mouth daily at bedtime. IQTQ5-JJU-WER-FISH OIL-L.CASEI ORAL Take by mouth once daily. [...] improving. She has a trip planned to [facility] next week for 10 days. PHYSICAL EXAM: [...] or swelling. Deep tendon reflexes are present Sheet Metal Mechanic for exam: Gurpreet Villarreal APRN.CNP RESULTS: CA [...] review with PCP 05/30/2021- Dee Dee Carter APRN.PALLIATIVE CARE PHYSICIAN (distance health visit) 61 yo female with [...] her today already. Test vaginal lesion for ER/MD receptors See me September 19 for post [...] hyperthyroidism, advised follow up with PCP and Coffee Blender. Ernesto Chacko APRN.PALLIATIVE CARE PHYSICIAN 03/13/2022 Recurrent Endometrial cancer with recurrence in [...] ferritin. Recommend she start following with a [facility] manager environmental health and safety for her rectal bleeding. We will assistwith [...] 03, 2023 4:37 PM documented in this encounterPremier Health [facility]02-08-2023 Miscellaneous Notes* Telephone Encounter - Aretha Pena [...] Pena RN * Telephone Encounter - Aretha Pnea RN - 12/25/2022 2:19 PM EST ----- Message from Jadyn Longle sent at 12/25/2022 12:04 PM EST ----- Regarding: [place] Patient bleeding and clotting almost daily since Colonoscopy. September was the Colonoscopy. Concerned and would like to know if she should schedule an appointment. [phone] documented in this encounterPremier Health [facility]11-10-2022 Nurse Note* Francisca Gómez RN - 09/26/2022 [...] RN In Department: GASTROENTEROLOGY documented in this encounterPremier Health Miami Valley [facility] South11-10-2022 Miscellaneous Notes* Sedation Documentation - Aretha Deluna RN - 09/26/2022 12:00 PM EST Grounding pad placed at right flank. Skin Intact. LOT#[id number]. documented in this encounterPremier Health Miami [facility]11-03-2022 Miscellaneous Notes* Telephone Encounter - Kelly Ch MA - 09/19/2022 3:49 PM EDT Attempted to reach the patient at the contact number that they provided [phone] (home) . 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 2 10/2019 documented in this encounterPremier Health [facility]09-21-2022 History of Present illness Narrative* Henry Ramos MD - 08/07/2022 3:20 PM EDT Gynecologic Oncology [facility] Follow up visit Date of service: 08/07/2022 [...] differentiation, FIGO grade 2. Neg LVSI, 13% SC pT1a (IA): Tumor limited to endometrium or invades less than 1/2 of the myometrium 05/25/2021 Vaginal biopsy Vagina, biopsy - Consistent with endometrioid adenocarcinoma (see comment). GZ/ka 05/28/2021 COMMENT The tumor cells are diffusely and strongly positive for immunohistochemical stain for [place] 8, supporting the above diagnosis. The patient [...] 150 mg by mouth daily at bedtime. INRZ2-RCH-LTV-FISH OIL-L.CASEI ORAL Take by mouth once daily. [...] groin. LOWER EXTREMITIES: No swelling or edema. Sheet Metal Mechanic for exam: Promise Mclaughlin MA RESULTS: 05/25/2021 - VAGINAL BIOPSY Vagina, biopsy - Consistent with endometrioid adenocarcinoma (see comment). GZ/ka 05/28/2021 COMMENT The tumor cells are diffusely and strongly positive for immunohistochemical stain for [place] 8, supporting the above diagnosis. The patient [...] dedicated report for findings in the abdomen Cheese Grader (topogram) images: None CA 125 (U/mL) Date Value 12/13/2021 9 06/04/2021 8 07/12/2019 15 ASSESSMENT & PLAN: 05/25/2021-Dee Dee Carter APRN.PALLIATIVE CARE PHYSICIAN IA endometrioid type endometrial adenocarcinoma, FIGO grade [...] review with PCP 05/30/2021- Dee Dee Carter APRN.PALLIATIVE CARE PHYSICIAN (distance health visit) 61 yo female with [...] her today already. Test vaginal lesion for ER/MD receptors See me September 19 for post [...] hyperthyroidism, advised follow up with PCP and Coffee Blender. Ernesto Chacko APRN.PALLIATIVE CARE PHYSICIAN 03/13/2022 Recurrent Endometrial cancer with recurrence in [...] 07, 2022 4:19 PM [facility] History of Present illness Narrative* Henry Ramos MD - 03/13/2022 2:50 PM EDT Gynecologic Oncology [facility] Follow up visit Date of service: 03/13/2022 [...] differentiation, FIGO grade 2. Neg LVSI, 13% SC pT1a (IA): Tumor limited to endometrium or invades less than 1/2 of the myometrium 05/25/2021 Vaginal biopsy Vagina, biopsy - Consistent with endometrioid adenocarcinoma (see comment). GZ/ka 05/28/2021 COMMENT The tumor cells are diffusely and strongly positive for immunohistochemical stain for [place] 8, supporting the above diagnosis. The patient [...] 150 mg by mouth daily at bedtime. XMET3-LCK-KMK-FISH OIL-L.CASEI ORAL Take by mouth once daily. [...] absent LOWER EXTREMITIES: No swelling or edema. Sheet Metal Mechanic for exam: Mod RESULTS: 05/25/2021 - VAGINAL BIOPSY Vagina, biopsy - Consistent with endometrioid adenocarcinoma (see comment). GZ/ka 05/28/2021 COMMENT The tumor cells are diffusely and strongly positive for immunohistochemical stain for [place] 8, supporting the above diagnosis. The patient [...] dedicated report for findings in the abdomen Cheese Grader (topogram) images: None CA 125 (U/mL) Date Value 12/13/2021 9 06/04/2021 8 07/12/2019 15 ASSESSMENT & PLAN: 05/25/2021-Dee Dee Carter APRN.PALLIATIVE CARE PHYSICIAN IA endometrioid type endometrial adenocarcinoma, FIGO grade [...] review with PCP 05/30/2021- Dee Dee Carter APRN.PALLIATIVE CARE PHYSICIAN (distance health visit) 61 yo female with [...] her today already. Test vaginal lesion for ER/MD receptors See me September 19 for post [...] hyperthyroidism, advised follow up with PCP and Coffee Blender. Ernesto Chacko APRN.PALLIATIVE CARE PHYSICIAN 03/13/2022 Recurrent Endometrial cancer with recurrence in [...] Past Histories independently gathered by the clinical technical support internship and the remaining scribed note accurately describes my personal service to the patient. [facility] Diagnosis Dizziness- Primary Dizziness and giddiness Dehydration documented in this encounter [email or web address] Phone: evaluation note* Diagnosis Recurrent carcinoma of endometrium (HCC)- Primary Malignant neoplasm of corpus uteri, except isthmus Vaginal atrophy Postmenopausal atrophic vaginitis Foreshortening of vagina [facility] Diagnosis Recurrent carcinoma of endometrium (HCC)- Primary Malignant neoplasm of corpus uteri, except isthmus Radiation proctitis Other specified disorder of rectum and anus Foreshortening of vagina Endometrial cancer (HCC) Malignant neoplasm of corpus uteri, except isthmus Vaginal atrophy Postmenopausal atrophic vaginitis Rectal bleeding Hemorrhage of rectum and anus documented in this [facility] Diagnosis History of thyroid disease- Primary Personal history of other endocrine, metabolic, and immunity disorders Rectal bleeding Hemorrhage of rectum and anus [facility] this [facility] Diagnosis Recurrent carcinoma of endometrium (HCC)- Primary Malignant neoplasm of corpus uteri, except isthmus Radiation proctitis Other specified disorder of rectum and anus Blood per rectum Hemorrhage of rectum and anus documented in this encounter [facility] noteNo [employer] Other Evaluation note* Diagnosis Rectal bleeding- Primary Hemorrhage of rectum and anus documented in this encounter [facility] note* Diagnosis Radiation proctitis- Primary Other specified disorder of rectum and anus documented in this encounter [facility] note* Diagnosis Dyspnea, unspecified type- Primary documented in this encounter [facility] note* Diagnosis 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) documented in this encounter [facility] note* Diagnosis Radiation proctitis- Primary Other specified disorder of rectum and anus documented in this encounter [facility] note* Diagnosis Endometrial cancer (HCC)- Primary Malignant neoplasm of corpus uteri, except isthmus Radiation proctitis Other specified disorder of rectum and anus Radiation proctitis Other specified disorder of rectum and anus documented in this encounter [facility] note* Diagnosis Radiation proctitis- Primary Other specified disorder of rectum and anus documented in this encounter [facility] note* Diagnosis ILD (interstitial lung disease) (HCC)- Primary Postinflammatory pulmonary fibrosis Radiation proctitis Other specified disorder of rectum and anus documented in this encounter [facility] note* Diagnosis ILD (interstitial lung disease) (HCC) Postinflammatory pulmonary fibrosis Radiation proctitis Other specified disorder of rectum and anus documented in this encounter [facility] note* Diagnosis Interstitial pulmonary disease (HCC) Postinflammatory pulmonary fibrosis Radiation proctitis Other specified disorder of rectum and anus documented in this encounter [facility] note* Diagnosis Dyspnea and respiratory abnormalities- Primary Other dyspnea and respiratory abnormality Calcified nodule Localized superficial swelling, mass, or lump Iron deficiency anemia due to chronic blood loss Iron deficiency anemia secondary to blood loss (chronic) Radiation proctitis Other specified disorder of rectum and anus documented in this encounter [facility]* Diagnosis Dyspnea, unspecified type Radiation proctitis Other specified disorder of rectum and anus documented in this encounter [facility] note* Diagnosis Pre-op evaluation- Primary Preoperative examination, unspecified Radiation proctitis Other specified disorder of rectum and anus documented in this encounter [facility] note* Diagnosis Interstitial pulmonary disease (HCC) Postinflammatory pulmonary fibrosis documented in this encounter [facility] note* Diagnosis Radiation proctitis- Primary Other specified [...] right thumb excision of trapezi um 09/14/2020 [facility] Other [facility] general Narrative - Reported* Type Description Date Medical History menopause Medical History endometrial cancer hx Surgical History Bilateral Knee Scope Surgical History Bilateral Shoulder Scope Surgical History Bilateral Carpal Tunnel Surgical History x 3 Surgical History Pituatary Tumor Surgical History hysterectomy Surgical History right thumb excision of trapezi um 09/14/2020 Hospitalization History see surgical history [facility] Other [facility] general Narrative - Reported* Type Description Date Medical History menopause Medical History endometrial cancer hx Medical History Dilated Cardiomyopathy Surgical History Bilateral Knee Scope Surgical History Bilateral Shoulder Scope Surgical History Bilateral Carpal Tunnel Surgical History x 3 Surgical History Pituatary Tumor Surgical History hysterectomy Surgical History right thumb excision of trapezi um 09/14/2020 Hospitalization History see surgical history [facility] Other [facility] general Narrative - Reported* Type Description Date Medical History menopause Medical History endometrial cancer hx Medical History Dilated Cardiomyopathy Surgical History Bilateral Knee Scope Surgical History Bilateral Shoulder Scope Surgical History Bilateral Carpal Tunnel Surgical History x 3 Surgical History Pituatary Tumor Surgical History hysterectomy Surgical History right thumb excision of trapezi um 09/14/2020 Surgical History Sigmoidoscopy 08/2023 Hospitalization History see surgical history [facility] Other [facility] general Narrative - Reported* Type Description Date [...] Sigmoidoscopy 08/2023 Hospitalization History see surgical history [facility] Other Hospital Discharge instructions* Attachments The following attachments cannot be sent through Care Everywhere. * Dehydration (Botswanan) * Oral Rehydration (Botswanan) documented in this [email or web address] Phone: reason for referral (narrative)* Outpatient Procedure (Routine) - Closed Specialty Diagnoses / Procedures Referred By Contac t Referred To Contact [facility] Diagnoses Rectal bleeding Procedures COLONOSCOPY SCREENING COLONOSCOPY FLX DX W/COLLJ SPEC WHEN Ernesto Noble APRN.CNP [address] [place] [address] [address] Referral ID Status Reason Start Date Expiration Date V isits Requested Visits Authorized [id number] Closed Auto-Generate d Referral 08/07/2022 08/07/[address] [facility] for referral (narrative)* Outpatient Procedure (Routine) - Pending Review Specialty Diagnoses / Procedures Referred By Contac t Referred To Contact [facility] Diagnoses Rectal bleeding Procedures COLONOSCOPY (THERAPEUTIC) COLONOSCOPY FLX ABLATION TUMOR POLYP/OTHER Juan Manuel Mendoza APRN.PALLIATIVE CARE PHYSICIAN [address] [place] [address] [place] [address] [place] [address] Referral ID Status Reason Start Date Expiration Date Visits Requested Visits Authorized [id number] Pending Review Auto-Generat ed Referral 03/05/2023 03/05/[address] [facility] for referral (narrative)* Outpatient Procedure (Routine) - Authorized Specialty Diagnoses / Procedures Referred By Contac t Referred To Contact [facility] Diagnoses Other secondary pulmonary hypertension (HCC) Procedures ECHO ECHO TTHRC R-T 2D W/WOM-MODE COMPL SPEC&COLR D Mike Presley MD [address] [place] [address] [address] Referral ID Status Reason Start Date Expiration Date Visits Requested Visits Authorized [id number] Authorized Auto-Generat ed Referral 06/27/2023 06/26/2024 1 1 * Diagnostic Procedure Only (Routine) - Pending Review Specialty Diagnoses / Procedures Referred By Kelly alberts Referred To [facility] MOLECULAR & FUNCTIONAL IMAGING Diagnoses Other secondary pulmonary hypertension (HCC) Procedures NM LUNG VENT / PERF VQ PULMONARY VENTILATION & PERFUSION IMAGING Mike Presley MD [address], [place] [address] Molecular & Functional Imaging [address] [place] [address] Referral ID Status Reason Start Date Expiration Date Visits Requested Visits Authorized [id number] Pending Review Auto-Generat ed Referral 06/27/2023 07/26/2024 1 1 * Outpatient Procedure (Routine) - Pending Review Specialty Diagnoses / Procedures Referred By Kelly alberts Referred To [facility] Diagnoses Interstitial pulmonary disease (HCC) Procedures LUNG VOLUMES Mike Presley MD [address] [place] [address] [place] [address] Referral ID Status Reason Start Date Expiration Date Visits Requested Visits Authorized [id number] Pending Review Auto-Generat ed Referral 06/27/2023 07/26/2024 1 1 * Outpatient Procedure (Routine) - Authorized Specialty Diagnoses / Procedures Referred By Kelly alberts [facility] Diagnoses Interstitial pulmonary disease (HCC) Procedures LUNG DIFFUSION CAPACITY (DLCO) DIFFUSING CAPACITY Mike Presley MD [address] [place] [address] [address] Referral ID Status Reason Start Date Expiration Date Visits Requested Visits Authorized [id number] Authorized Auto-Generat ed Referral 06/27/2023 07/26/2024 1 1 * MRI/CT (Routine) - Authorized Specialty Diagnoses / Procedures Referred By Kelly t Referred To Contact CT IMAGING Diagnoses Interstitial pulmonary disease (HCC) Procedures CT CHEST WO IVCON DIAGNOSTIC COMPUTED TOMOGRAPHY THORAX W/O CNTRST Mike Presley MD [address] [place] [address] [address] [address] [facility] Referral ID Status Reason Start Date Expiration Date Visits Requested Visits Authorized [id number] Authorized Auto-Generat ed Referral 06/27/2023 07/26/[address] [facility] for referral (narrative)* Outpatient Procedure (Routine) - Authorized Specialty Diagnoses / Procedures Referred By Kelly alberts Referred To Contact [facility] Diagnoses ILD (interstitial lung disease) (HCC) Procedures SPIROMETRY BASELINE ONLY SPMTRY W/VC EXPIRATORY BERNIE W/WO MXML VOL VNTJ Mike Presley MD [address] [place] [address] [facility] [address] [place] [address] Referral ID Status Reason Start Date Expiration Date Visits Requested Visits Authorized [id number] Authorized Auto-Generat ed Referral 09/24/[address] [facility] for visit Narrative* Outpatient Procedure (Routine) - Closed Specialty Diagnoses / Procedures Referred By Kelly t Referred To Contact [facility] Diagnoses Rectal bleeding Procedures COLONOSCOPY SCREENING COLONOSCOPY FLX DX W/COLLJ SPEC WHEN PFRMD Ernesto Chacko APRN.PALLIATIVE CARE PHYSICIAN [address] [place] [address] [facility] [address] [place] [address] Referral ID Status Reason Start Date Expiration Date V isits Requested Visits Authorized [id number] Closed Auto-Generate d Referral 08/07/2022 08/07/2023 1 1 [facility] Summary Purpose Family History No Family History Records FoundNo Family History Records FoundNo Family History Records FoundNo Family History Records FoundNo Family History Records FoundNo Family History Records FoundNo Family History Records Found Advance Directives Documents on File Type Date Recorded Patient Executive Director Of Nursing 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 Advance Directive(s) 08/12/2019 10:47 AM Advance Directive(s) 07/28/2019 9:20 AM Documents on File Type Date Recorded Patient Executive Director Of Nursing 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 Advance Directive(s) 07/28/2019 9:20 AM Documents on File Type Date Recorded Patient Executive Director Of Nursing 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 Advance Directive(s) 07/28/2019 9:20 AM Reason for Referral Specialty Diagnoses / Procedures Referred By Contac t Referred To Contact Gastroenterology Diagnoses Rectal bleeding Procedures CONSULT TO GASTROENTEROLOGY OFFICE/OUTPATIENT [facility] 60-74 MINUTES Ernesto Chacko APRN.PALLIATIVE CARE PHYSICIAN [address] [place] [address] Referral ID Status Reason Start Date Expiration Date Visits Requested Visits Authorized [id number] Authorized PCP Requested Referral 08/07/2022 08/07/2023 1 1 Specialty Diagnoses / Procedures Referred By Contac t Referred To Contact [facility] Diagnoses Rectal bleeding Procedures COLONOSCOPY SCREENING COLONOSCOPY FLX DX W/COLLJ SPEC WHEN PFRMD Ernesto Chacko APRN.PALLIATIVE CARE PHYSICIAN [address] [place] [id number] [facility] [address] [place], [place] [id number] Referral ID Status Reason Start Date Expiration Date Visits Requested Visits Authorized [id number] Pending Review Auto-Generat ed Referral 08/07/2022 08/07/2023 1 1 Specialty Diagnoses / Procedures Referred By Contac t Referred To Contact CT IMAGING Diagnoses Interstitial pulmonary disease (HCC) Procedures CT CHEST WO IVCON DIAGNOSTIC COMPUTED TOMOGRAPHY THORAX W/O CNTRST Mike Presley MD [address] [place] [address] Ct Imaging [place] [address] Referral ID Status Reason Start Date Expiration Date V isits Requested Visits Authorized [id number] Closed Auto-Generate d Referral 06/27/2023 07/26/2024 1 1 Reason Iron deficiency anem ia Diagnosis 1 Iron deficiency anem ia due to chronic blood loss (D50.0) Referral Organization [facility] Keira hanh Referring Provider First Name Roland Referring Provider Last Name Maggie Referring Provider Specialty Internal Me dicine Referred Organization [facility] Referred Provider NGA TATUM Referred Address [address] [place], [place],[address] Referred Provider Specialty Hematology Referral Priority Routine General Notes Mrs. Waddell is being r eferred for symptomatic iron deficiency anemia. 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 She has completed endoscopic treatment for her chronic bleeding and has received 2 units of PRBC [facility]. I am referring Mrs. [...] DATE CREATED AUTHOR AUTHOR'S ORGANIZ ATION 03/20/2022 [facility] DATE CREATED AUTHOR AUTHOR'S ORGANIZ ATION 03/28/2023 [facility] DATE CREATED AUTHOR AUTHOR'S ORGANIZ ATION 08/25/2023 [facility] DATE CREATED AUTHOR AUTHOR'S ORGANIZ ATION 10/04/2023 [facility] DATE CREATED AUTHOR AUTHOR'S ORGANIZ ATION 10/09/2023 [facility] Reason for Visit (unrecogniz ed section [...] NEW HIGH MDM 60-74 MINUTES Ernesto Chacko APRN.PALLIATIVE CARE PHYSICIAN [address] [place] [address] Referral ID Status Reason Start Date Expiration Date V isits Requested Visits Authorized [id number] Closed PCP Requested Referral 08/07/2022 08/07/2023 1 1 Reason Comments Spirometry Specialty Diagnoses / Procedures Referred By Kelly alberts Referred To Contact [facility] Diagnoses Dyspnea, unspecified type Procedures SPIROMETRY WITH DILATOR IF OBSTRUCTED BRNCDILAT RSPSE SPMTRY PRE&POST-BRNCDILAT ADMN Pedro Rodarte MD [address] [place] [address] [facility] [address] [place] [address] Referral ID Status Reason Start Date Expiration Date V isits Requested Visits Authorized [id number] Closed Auto-Generate d Referral 05/23/2023 06/21/2024 1 1 Reason Comments New Reason Comments New Radiation proctitis Specialty Diagnoses / Procedures Referred By Kelly t Referred To Contact Colon and Rectal Surgery Diagnoses Radiation proctitis Procedures CONSULT TO COLO-RECTAL SURGERY OFFICE/OUTPATIENT NEW HIGH MDM 60-74 MINUTES Gurpreet Villarreal, HEALTH PHYSICIST.PALLIATIVE CARE PHYSICIAN [address] [place] [address] [place] DO [address] [place] [address] Referral ID Status Reason Start Date Expiration Date V isits Requested Visits Authorized [id number] Closed PCP Requested Referral 05/16/2023 05/15/2024 1 1 Reason Comments Patient Update Specialty Diagnoses / Procedures Referred By Contac t Referred To Contact [facility] Diagnoses ILD (interstitial lung disease) (HCC) Procedures SPIROMETRY BASELINE ONLY SPMTRY W/VC EXPIRATORY BERNIE W/WO MXML VOL VNTJ Mike Presley MD [address] [place] [address] [place] [address] Referral ID Status Reason Start Date Expiration Date V isits Requested Visits Authorized [id number] Closed Auto-Generate d Referral 08/26/2023 09/24/2024 1 1 Specialty Diagnoses / Procedures Referred By Contac t Referred To Contact [facility] Diagnoses Interstitial pulmonary disease (HCC) Procedures LUNG DIFFUSION CAPACITY (DLCO) DIFFUSING CAPACITY Mike Presley MD [address] [place] [address] [place] [address] Referral ID Status Reason Start Date Expiration Date V isits Requested Visits Authorized [id number] Closed Auto-Generate d Referral 06/27/2023 07/26/2024 1 1 Reason Comments Radio Gen A21 Reason Comments Pre-Op Exam Specialty Diagnoses / Procedures Referred By Contac t Referred To Contact CT IMAGING Diagnoses Interstitial pulmonary disease (HCC) Procedures CT CHEST WO IVCON DIAGNOSTIC COMPUTED TOMOGRAPHY THORAX W/O CNTRST Mike Presley MD [address] [place] [address] [address] [address] [id number] Referral ID Status Reason Start Date Expiration Date V isits Requested Visits Authorized [id number] Closed Auto-Generate d Referral 06/27/2023 07/26/2024 1 [...] or prosecute any alcohol or drug abuse patient.[facility] the event this information is protected by the Federal Confidentiality of Alcohol and Drug Abuse Patient Records regulations: The Federal rules restrict any use of the information to criminally investigate or prosecute any alcohol or drug abuse patient.[facility] the event this information is protected by the Federal Confidentiality of Alcohol and Drug Abuse Patient Records regulations: The Federal rules restrict any use of the information to criminally investigate or prosecute any alcohol or drug abuse patient.[facility] the event this information is protected by the Federal Confidentiality of Alcohol and Drug Abuse Patient Records regulations: The Federal rules restrict any use of the information to criminally investigate or prosecute any alcohol or drug abuse patient.[facility] the event this information is protected by the Federal Confidentiality of Alcohol and Drug Abuse Patient Records regulations: The Federal rules restrict any use of the information to criminally investigate or prosecute any alcohol or drug abuse patient.[facility] the event this information is protected by the Federal Confidentiality of Alcohol and Drug Abuse Patient Records regulations: The Federal rules restrict any use of the information to criminally investigate or prosecute any alcohol or drug abuse patient.[facility] the event this information is protected by the Federal Confidentiality of Alcohol and Drug Abuse Patient Records regulations: The Federal rules restrict any use of the information to criminally investigate or prosecute any alcohol or drug abuse patient.[facility] the event this information is protected by the Federal Confidentiality of Alcohol and Drug Abuse Patient Records regulations: The Federal rules restrict any use of the information to criminally investigate or prosecute any alcohol or drug abuse patient.[facility] the event this information is protected by the Federal Confidentiality of Alcohol and Drug Abuse Patient Records regulations: The Federal rules restrict any use of the information to criminally investigate or prosecute any alcohol or drug abuse patient.[facility] the event this information is protected by the Federal Confidentiality of Alcohol and Drug Abuse Patient Records regulations: The Federal rules restrict any use of the information to criminally investigate or prosecute any alcohol or drug abuse patient.[facility] the event this information is protected by the Federal Confidentiality of Alcohol and Drug Abuse Patient Records regulations: The Federal rules restrict any use of the information to criminally investigate or prosecute any alcohol or drug abuse patient.[facility] the event this information is protected by the Federal Confidentiality of Alcohol and Drug Abuse Patient Records regulations: The Federal rules restrict any use of the information to criminally investigate or prosecute any alcohol or drug abuse patient.[facility] the event this information is protected by the Federal Confidentiality of Alcohol and Drug Abuse Patient Records regulations: The Federal rules restrict any use of the information to criminally investigate or prosecute any alcohol or drug abuse patient.[facility] the event this information is protected by the Federal Confidentiality of Alcohol and Drug Abuse Patient Records regulations: The Federal rules restrict any use of the information to criminally investigate or prosecute any alcohol or drug abuse patient.[facility]In the event this information is protected by the Federal Confidentiality of Alcohol and Drug Abuse Patient Records regulations: The Federal rules restrict any use of the information to criminally investigate or prosecute any alcohol or drug abuse patient.[facility]In the event this information is protected by the Federal Confidentiality of Alcohol and Drug Abuse Patient Records regulations: The Federal rules restrict any use of the information to criminally investigate or prosecute any alcohol or drug abuse patient.[facility]In the event this information is protected by the Federal Confidentiality of Alcohol and Drug Abuse Patient Records regulations: The Federal rules restrict any use of the information to criminally investigate or prosecute any alcohol or drug abuse patient.[facility] SouthIn the event this information is protected by the Federal Confidentiality of Alcohol and Drug Abuse Patient Records regulations: The Federal rules restrict any use of the information to criminally investigate or prosecute any alcohol or drug abuse patient.[facility]In the event this information is protected by the Federal Confidentiality of Alcohol and Drug Abuse Patient Records regulations: The Federal rules restrict any use of the information to criminally investigate or prosecute any alcohol or drug abuse patient.[facility] SouthIn the event this information is protected by the Federal Confidentiality of Alcohol and Drug Abuse Patient Records regulations: The Federal rules restrict any use of the information to criminally investigate or prosecute any alcohol or drug abuse patient.[facility]In the event this information is protected by the Federal Confidentiality of Alcohol and Drug Abuse Patient Records regulations: The Federal rules restrict any use of the information to criminally investigate or prosecute any alcohol or drug abuse patient.[facility]In the event this information is protected by the Federal Confidentiality of Alcohol and Drug Abuse Patient Records regulations: The Federal rules restrict any use of the information to criminally investigate or prosecute any alcohol or drug abuse patient.[facility] SouthIn the event this information is protected by the Federal Confidentiality of Alcohol and Drug Abuse Patient Records regulations: The Federal rules restrict any use of the information to criminally investigate or prosecute any alcohol or drug abuse patient.[facility] SouthIn the event this information is protected by the Federal Confidentiality of Alcohol and Drug Abuse Patient Records regulations: The Federal rules restrict any use of the information to criminally investigate or prosecute any alcohol or drug abuse patient.[facility] Care Teams (unrecognized sec tion and content) News Assistant Relationship Specialty Start Date End Date Roland Serrano DO PCP - General 09/21/07 Kizzy Galloway RN Specialty [employer] Radiation Oncology 06/12/21 News Assistant Relationship Specialty Start Date End Date Roland Serrano DO PCP - General 09/21/07 [place] [id number] [place] [address] Specialty [employer] Designer Radiation Oncology 06/12/21 News Assistant Relationship Specialty Start Date End Date Roland Serrano DO [facility] General 09/21/07 Kizzy Galloway RN [id number] [place] [address] Specialty [employer] Designer Radiation Oncology 06/12/21 News Assistant Relationship Specialty Start Date End Date Roland Serrano DO PCP - General 09/21/07 Kizzy Galloway RN [phone] [place] [phone] Specialty [employer] Designer Radiation Oncology 06/12/21 News Assistant Relationship Specialty Start Date End Date Roland Serrano DO PCP - General 09/21/07 Kizzy Galloway RN [address] [place] [address] Specialty [employer] Designer Radiation Oncology 06/12/21 News Assistant Relationship Specialty Start Date End Date Roland Serrano DO PCP - General 09/21/07 Kizzy Galloway RN [address] [place] [address] Specialty [employer] Designer Radiation Oncology 06/12/21 News Assistant Relationship Specialty Start Date End Date Roland Serrano DO PCP - General 09/21/07 Kizzy Galloway RN [address] [place] [address] Specialty [employer] Designer Radiation Oncology 06/12/21 News Assistant Relationship Specialty Start Date End Date Roland Serrano DO [facility] - General 09/21/07 Kizzy Galloway RN [phone] [place] [address] Specialty [employer] Designer Radiation Oncology 06/12/21 News Assistant Relationship Specialty Start Date End Date Roland Serrano DO PCP - General 09/21/07 [place] [phone] [place] [address] Specialty [employer] Designer Radiation Oncology 06/12/21 News Assistant Relationship Specialty Start Date End Date Roland Serrano DO PCP - General 09/21/07 Kizzy Galloway RN [address] [place] [address] Specialty [employer] Designer Radiation Oncology 06/12/21 News Assistant Relationship Specialty Start Date End Date Roland Serrano DO PCP - General 09/21/07 Kizzy Galloway RN [address] [place] [address] Specialty [employer] Designer Radiation Oncology 06/12/21 News Assistant Relationship Specialty Start Date End Date Roland Serrano DO PCP - General 09/21/07 Kizzy Galloway RN [address] [place] [address] Specialty [employer] Designer Radiation Oncology 06/12/21 News Assistant Relationship Specialty Start Date End Date Roland Serrano DO PCP - General 09/21/07 Kizzy Galloway RN [address] [place] [address] Specialty [employer] Designer Radiation Oncology 06/12/21 News Assistant Relationship Specialty Start Date End Date Roland Serrano DO PCP - General 09/21/07 Kizzy Galloway RN [address] [place] [address] Specialty [employer] Designer Radiation Oncology 06/12/21 News Assistant Relationship Specialty Start Date End Date Roland Serrano DO [facility] - General 09/21/07 Kizzy Galloway RN [phone] [place] [phone] Specialty [employer] Designer Radiation Oncology 06/12/21 News Assistant Relationship Specialty Start Date End Date Roland Serrano DO [facility] 09/21/07 Kizzy Galloway RN [phone] [place] [phone] Specialty [employer] Designer Radiation Oncology 06/12/21 News Assistant Relationship Specialty Start Date End Date Roland Serrano DO [facility] 09/21/07 Kizzy Galloway RN [address] [place] [address] Specialty [employer]er Radiation Oncology 06/12/21 News Assistant Relationship Specialty Start Date End Date Roland Serrano DO [facility] 09/21/07 Kizzy Galloway RN [phone] [place] [phone] Specialty [employer] Designer Radiation Oncology 06/12/21 News Assistant Relationship Specialty Start Date End Date Roland Serrano DO [facility] 09/21/07 Kizzy Galloway RN [phone] [place] [address] Specialty [employer] Designer Radiation Oncology 06/12/21 FOR RECORDS PERTAINING TO [...] BE BASED ON THE PRIMARY CLINICAL RECORDS. [facility] [employer] [facility]. provides no warranty or guarantee of the accuracy or completeness of information in this document.
--- OUTSIDE RECORDS SUMMARY | 2023-12-16 15:33 | XMS_ITS | CCD ---
Author Name Unknown Address [address] [place] [address] Organization [facility] Care Team Providers Care Interpretive Naturalist Name Role Phone Roland Serrano DO Primary [...] physicia Propensity to adverse reactions 8 Comment:Done [employer] Other (6 sources) Allergies Reconciled Propensity to adverse reactions Unknown [employer] Other Medications Current Medications Medication Drug Class(es) Dates Sig (Normalized) Sig (Original) acetaminophen 325 mg / HYDROcodone bitartrate 5 mg oral tablet (8 sources) Opioid Agonist take 1-2 tablets by mouth every six hours as needed HYDROcodone-Aceta minophen 5-325 MG 1-2 tablet as needed Oral every 6 hrs for 7 days Active [id number] 200 actuat albuterol 0.09 mg/actuat metered dose [...] one(1) tablet d aily. Take by mouth. QRPU5-YGL-PLP-FISH OIL-L.CASEI ORAL (20 sources) KUJK5-VCI-NPV-FI SH OIL-L.CASEI ORAL Take by mouth once daily. 0 Active Comment on above: Take by mouth once d aily. polyethylene glycol 3350 393270 mg / potassium chloride 2970 mg / sodium bicarbonate 6740 mg / sodium chloride 5860 mg / sodium sulfate 18577 mg powder for oral solution (1 source) [...] CNOV Office Visit ([facility] ) CKISABEL L ([id number]) 1960 F Date Time Provider Department 09/29/23 [...] mg by mouth daily at bedtime. - ROCC7-NYQ-LVH-FISH OIL-L.CASEI ORAL Take by mouth once daily. [...] [D64.89] 09/02 (more content not included)... Normal [facility] ANES POSTPROC EVALon 023 ANES POSTPROC EVAL HNO ID: [id number] Author: Kobe Garcia MD Service: ? Author Type: Anesthesiologist Type: Anesthesia Postprocedure Evaluation Filed: 09/02/2023 10:38 AM Note Text: POST ANESTHESIA EVALUATION NOTE : 1960 Procedure Summary Date: 09/02/23 Room / Location: [place] [address] [facility] Anesthesia Start: 745 Anesthesia [...] September 02, 2023 TIME: 10:37 AM CSN: [id number] Normal [facility] ANES PRE-OPon 09-02-2023 ANES PRE-OP HNO ID: [id number] Author: Kobe Garcia MD Service: ? Author [...] 1,000 mg by mouth once daily. - SLDW4-JAY-RXG-FISH OIL-L.CASEI ORAL Take by mouth once daily. [...] on 06/27/2023 (more content not included)... Normal [facility] ANES PREOPon 09-02-2023 ANES PREOP HNO ID: [id number] Author: Kobe Garcia MD Service: Anesthesiology Author Type: Anesthesiologist Type: Anesthesia PreOp Filed: 09/02/2023 7:05 AM Note Text: Healthy except for FAP. Appropriately NPO, denies reflux, no history of anesthesia problems. Reviewed in fathers presence. MP1, no airway concerns, ASA2, Plan for GA with LMA. Has braces, tight , no loose teeth. Normal [facility] BRIEF OP NOTon 09-02-2023 BRIEF OP NOT HNO ID: [id number] Author: Milagro Sanchez MD Service: Colorectal Author Type: Physician Type: Brief Op Note Filed: 09/02/2023 8:57 AM Note Text: BRIEF OPERATIVE NOTE - COLORECTAL SURGERY Log ID: [id number] Surgery/Procedure Date: 09/02/2023 Incision/Procedure Start Time: 8:01 AM Incision Close/Procedure End Time: 8:51 AM Surgeon(s) and [employer](s): Surgeon(s) and Role: * South Saba DO [...] DATE: September 02, 2023 TIME: 8:56 AM [facility]DSon 09-02-2023 [facility] HNO ID: [id number] Author: Ricardo White PA-C Service: Colorectal Author Type: Physician [employer] Type: Discharge Summary Filed: 09/02/2023 2:06 PM Note Text: Attestation signed by South Saba DO at 09/02/2023 4:24 PM South Saba DO, FACS, [facility] Colorectal Surgery DISCHARGE SUMMARY PATIENT NAME: [...] [facility] [address] Saba's office at [phone] to make an appointment. Transitions of Care [...] capsule Commonly (more content not included)... Normal [facility] Hematocrit Auto (Bld) [Volum e fraction]on 09-02-2023 Hematocrit (Bld) [Volume fraction] 27.4 % Low 36.0-46.0 [facility] Comment on above: Order Comment: Speci men Type: BLOOD SPECIMEN Ordering Facility: [facility] Address: [address] [place] [address] Performed By: #### 5 0190-8, 2276-02 #### [facility] CLIA [id number] [address] [place], [place] [address] [address] [place] Hgb Bld-mCncon 09-02-2023 Hemoglobin (Bld) [Mass/Vol] 7.5 g/dL Low 11.5-15.5 [facility] Comment on above: Order Comment: Speci men Type: BLOOD SPECIMEN Ordering Facility: [facility] Address: [address] [place], [place] [address] Performed By: #### 5 0190-8, 2275- #### [facility] CLIA [id number] [facility] [address] [address] [place] OPERATIVE NOon 09-02-2023 OPERATIVE NO HNO ID: [id number] Author: South Saba DO Service: Colorectal Author Type: Physician Type: Operative Report Filed: 09/10/2023 7:14 AM Note Text: OPERATIVE REPORT PATIENT NAME: Isabel Waddell LOG ID: [id number] SURGERY DATE: 09/02/2023 INCISION/PROCEDURE START TIME: 8:01 AM INCISION CLOSE/PROCEDURE END TIME: 8:51 AM PREOPERATIVE DIAGNOSIS: Radiation proctitis, anemia, history of endometrial adenocarcinoma POSTOPERATIVE DIAGNOSIS: Radiation proctitis, anemia, history of endometrial adenocarcinoma OPERATION PERFORMED: Flexible sigmoidoscopy, exam under anesthesia, topical application of formalin to the rectum for treatment of radiation proctitis SURGEON: South Saba DO HAND MEAT SALTER: Milagro Sanchez MD. no qualified residents or [...] Saba, DO, FACS, FASCRS Colorectal Surgery Normal [facility] TYPE + SCREENon 09-02-2023 ABO O Normal [facility] Comment on above: Order Comment: Speci men Type: BLOOD SPECIMEN Ordering Facility: [facility] Address: [address] [place] [address] Performed By: #### 5 0190-8, 2276-4 #### [facility] CLIA [id number] [address] [place] [address] [place] HISTORICAL AB SCR STATUS Negative Normal [facility] Comment on above: Order Comment: Speci men Type: BLOOD SPECIMEN Ordering Facility: [facility] Address: [address] [place] [address] Performed By: #### 5 0190-8, 2276-4 #### [facility] CLIA [id number] [address] [place] [address] [place] Rh Nom (Bld) Positive Normal [facility] Comment on above: Order Comment: Speci men Type: BLOOD SPECIMEN Ordering Facility: [facility] Address: [address] [place] [address] Performed By: #### 5 0190-8, 2276-4 #### [facility] CLIA [id number] [address] [place] [address] [place] TYPE AND SCREEN EXPIRATION 09/05/2023 23:59 Normal [facility] Comment on above: Order Comment: Speci men Type: BLOOD SPECIMEN Ordering Facility: [facility] Address: [address] [place] [address] Performed By: #### 5 0190-8, 2276-4 #### [facility] CLIA [id number] [address] [place] [address] [place] CBC W Auto Differential pane l (Bld)on 08-29-2023 Basophils (Bld) [#/Vol] 10*3/uL Normal <0.11 [facility] Comment on above: Order Comment: Speci men Type: BLOOD SPECIMENOrdering Facility: [facility] Address: [address] [place] [address] Performed By: #### 5 7021-8 ####[facility] [id number] [place] [address] [place] Basophils/100 WBC (Bld) 0.7 % Normal [facility] Comment on above: Order Comment: Speci men Type: BLOOD SPECIMENOrdering Facility: [facility] Address: [address] [place] [address] Performed By: #### 5 7021-8 ####[facility] [id number] [place] [address] [place] Differential cell count method Nom (Bld) Auto Normal [facility] Comment on above: Order Comment: Speci men Type: BLOOD SPECIMENOrdering Facility: [facility] Address: [address] [place] [address] Performed By: #### 5 7021-8 ####[facility] [id number] [place] [address] [place] Eosinophils (Bld) [#/Vol] 0.18 10*3/uL Normal <0.46 [facility] Comment on above: Order Comment: Speci men Type: BLOOD SPECIMENOrdering Facility: [facility] Address: [address] [place] [address] Performed By: #### 5 7021-8 ####[facility] [id number] [place] [address] [place] Eosinophils/100 WBC (Bld) 5.9 % Normal [facility] Comment on above: Order Comment: Speci men Type: BLOOD SPECIMENOrdering Facility: [facility] Address: [address] [place] [address] Performed By: #### 5 7021-8 ####[facility] [id number] [place] [address] [place] Erythrocyte distribution width (RBC) [Ratio] 22.0 % High 11.5-15.0 [facility] Comment on above: Order Comment: Speci men Type: BLOOD SPECIMENOrdering Facility: [facility] Address: [address] [place] [address] Performed By: #### 5 7021-8 ####[facility] [id number] [place] [address] [place] Hematocrit (Bld) [Volume fraction] 26.0 % Low 36.0-46.0 [facility] Comment on above: Order Comment: Speci men Type: BLOOD SPECIMENOrdering Facility: [facility] Address: [address] [place] [address] Performed By: #### 5 7021-8 ####[facility] [id number] [place] [address] [place] Hemoglobin (Bld) [Mass/Vol] 7.0 g/dL Low 11.5-15.5 [facility] Comment on above: Order Comment: Speci men Type: BLOOD SPECIMENOrdering Facility: [facility] Address: [address] [place] [address] Performed By: #### 5 7021-8 ####[facility] [id number] [place] [address] [place] Immature granulocytes (Bld) [#/Vol] 10*3/uL Normal <0.10 [facility] Comment on above: Order Comment: Speci men Type: BLOOD SPECIMENOrdering Facility: [facility] Address: [address] [place] [address] Performed By: #### 5 7021-8 ####[facility] [id number] [place] [address] [place] Immature granulocytes/100 WBC (Bld) 0.0 % Normal [facility] Comment on above: Order Comment: Speci men Type: BLOOD SPECIMENOrdering Facility: [facility] Address: [address] [place] [address] Performed By: #### 5 7021-8 ####[facility] [id number] [place] [address] [place] Lymphocytes (Bld) [#/Vol] 1.20 10*3/uL Normal 1.00-4.00 [facility] Comment on above: Order Comment: Speci men Type: BLOOD SPECIMENOrdering Facility: [facility] Address: [address] [place] [address] Performed By: #### 5 7021-8 ####[facility] [id number] [place] [address] [place] Lymphocytes/100 WBC (Bld) 39.1 % Normal [facility] Comment on above: Order Comment: Speci men Type: BLOOD SPECIMENOrdering Facility: [facility] Address: [address] [place] [address] Performed By: #### 5 7021-8 ####[facility] [id number] [place] [address] [place] MCH (RBC) [Entitic mass] 17.9 pg Low 26.0-34.0 [facility] Comment on above: Order Comment: Speci men Type: BLOOD SPECIMENOrdering Facility: [facility] Address: [address] [place] [address] Performed By: #### 5 7021-8 ####[facility] [id number] [place] [address] [place] MCHC (RBC) [Mass/Vol] 26.9 g/dL Low 30.5-36.0 [facility] Comment on above: Order Comment: Speci men Type: BLOOD SPECIMENOrdering Facility: [facility] Address: [address] [place] [address] Performed By: #### 5 7021-8 ####[facility] [id number] [place] [address] [place] MCV (RBC) [Entitic vol] 66.3 fL Low 80.0-100.0 [facility] Comment on above: Order Comment: Speci men Type: BLOOD SPECIMENOrdering Facility: [facility] Address: [address] [place] [address] Performed By: #### 5 7021-8 ####[facility] [id number] [place] [address] [place] Monocytes (Bld) [#/Vol] 0.40 10*3/uL Normal <0.87 [facility] Comment on above: Order Comment: Speci men Type: BLOOD SPECIMENOrdering Facility: [facility] Address: [address] [place] [address] Performed By: #### 5 7021-8 ####[facility] [id number] [place] [address] [place] Monocytes/100 WBC (Bld) 13.0 % Normal [facility] Comment on above: Order Comment: Speci men Type: BLOOD SPECIMENOrdering Facility: [facility] Address: [address] [place] [address] Performed By: #### 5 7021-8 ####[facility] [id number] [place] [address] [place] Neutrophils (Bld) [#/Vol] 1.27 10*3/uL Low 1.45-7.50 [facility] Comment on above: Order Comment: Speci men Type: BLOOD SPECIMENOrdering Facility: [facility] Address: [address] [place] [address] Performed By: #### 5 7021-8 ####[facility] [id number] [place] [address] [place] Neutrophils/100 WBC (Bld) 41.3 % Normal [facility] Comment on above: Order Comment: Speci men Type: BLOOD SPECIMENOrdering Facility: [facility] Address: [address] [place] [address] Performed By: #### 5 7021-8 ####[facility] [id number] [place] [address] [place] Nucleated RBC (Bld) [#/Vol] 10*3/uL Normal <0.01 [facility] Comment on above: Order Comment: Speci men Type: BLOOD SPECIMENOrdering Facility: [facility] Address: [address] [place] [address] Performed By: #### 5 7021-8 ####[facility] [id number] [place] [address] [place] Nucleated RBC/100 WBC (Bld) [Ratio] 0.0 /100 WBC Normal [facility] Comment on above: Order Comment: Speci men Type: BLOOD SPECIMENOrdering Facility: [facility] Address: [address] [place] [address] Performed By: #### 5 7021-8 ####[facility] [id number] [place] [address] [place] Platelet mean volume (Bld) [Entitic vol] 9.6 fL Normal 9.0-12.7 [facility] Comment on above: Order Comment: Speci men Type: BLOOD SPECIMENOrdering Facility: [facility] Address: [address] [place] [address] Performed By: #### 5 7021-8 ####[facility] [id number] [place] [address] [place] Platelets (Bld) [#/Vol] 266 10*3/uL Normal 150-400 [facility] Comment on above: Order Comment: Speci men Type: BLOOD SPECIMENOrdering Facility: [facility] Address: [address] [place] [address] Performed By: #### 5 7021-8 ####[facility] [id number] [place] [address] [place] RBC (Bld) [#/Vol] 3.92 10*6/uL Normal 3.90-5.20 [facility] Comment on above: Order Comment: Speci men Type: BLOOD SPECIMENOrdering Facility: [facility] Address: [address] [place] [address] Performed By: #### 5 7021-8 ####[facility] [id number] [place] [address] [place] WBC (Bld) [#/Vol] 3.07 10*3/uL Low 3.70-11.00 [facility] Comment on above: Order Comment: Speci men Type: BLOOD SPECIMENOrdering Facility: [facility] Address: [address] [place] [address] Performed By: #### 5 7021-8 ####[facility] [id number] [address] [place] CNOVon 08-29-2023 CNOV Office Visit (HOMERO ) ISABEL WADDELL ([id number]) 1960 F Date Time Provider Department 08/29/23 11:00 AM ELDER GALAN During your visit today, we recorded the following information about you: Temperature Pulse Blood pressure Weight 98 degrees 82/minute 163/78 66.7 kg Height 1.676 m Elder Galan APRN.[employer] 08/31/2023 9:11 PM Signed COLON AND RECTAL [...] team about CBC once drawn. Elder Galan, POSTMASTER.[facility] Pelvic Floor Colorectal Surgery Risk of morbidity, mortality and/or complications of treatment plan: high Referring Provider: SOUTH SABA [[id number]] Allergies As of Allen (more content not included)... Normal [facility] CNOV Office Visit (PMNA11 ) ISABEL WADDELL Ashlie ([id number]) 1960 F Date Time Provider Department 08/29/23 10:00 AM HEIDI MENARD PMNA11 During your visit today, we recorded the following information about you: Temperature Pulse Respiration Blood pressure 98 degrees 82/minute 16/minute 157/77 Weight 66.7 kg Heidi Menard MD 08/29/2023 1:08 PM Signed Ms. Waddell is a 63 year old female who presents to the [facility] [place]. 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 Normal [facility] Comprehensive metabolic 2000 panelon 08-29-2023 Albumin [Mass/Vol] 3.9 g/dL Normal 3.9-4.9 [facility] Comment on above: Order Comment: Speci men Type: BLOOD SPECIMEN Ordering Facility: [facility] Address: [address] [place] [address] Performed By: #### 5 0190-8, 2276-4 #### [facility] CLIA [id number] [address] [place] [id number] [place] ALP [Catalytic activity/Vol] 164 U/L High 34-123 [facility] Comment on above: Order Comment: Speci men Type: BLOOD SPECIMEN Ordering Facility: [facility] Address: [address] [place] [address] Performed By: #### 5 0190-8, 2275-4 #### [facility] CLIA [id number] [address] [place] [address] [place] ALT [Catalytic activity/Vol] 45 U/L High 7-38 [facility] Comment on above: Order Comment: Speci men Type: BLOOD SPECIMEN Ordering Facility: [facility] Address: [address] [place] [address] Performed By: #### 5 0190-8, 2275-4 #### [facility] CLIA [id number] [address] [place] [address] [place] Anion gap [Moles/Vol] 10 mmol/L Normal 9-18 [facility] Comment on above: Order Comment: Speci men Type: BLOOD SPECIMEN Ordering Facility: [facility] Address: [address] [place], [place] [address] Performed By: #### 5 0190-8, 2275-4 #### [facility] CLIA [id number] [address] [place] [address] [place] AST [Catalytic activity/Vol] 48 U/L High 13-35 [facility] Comment on above: Order Comment: Speci men Type: BLOOD SPECIMEN Ordering Facility: [facility] Address: [address] [place], [place] [address] Performed By: #### 5 0190-8, 2275-4 #### [facility] CLIA [id number] [address] [place] [address] [place] Bilirubin [Mass/Vol] 0.3 mg/dL Normal 0.2-1.3 [facility] Comment on above: Order Comment: Speci men Type: BLOOD SPECIMEN Ordering Facility: [facility] Address: [address] Performed By: #### 5 0190-8, 2275- #### [facility] CLIA [id number] [address] [place] [address] [place] Calcium [Mass/Vol] 9.5 mg/dL Normal 8.5-10.2 [facility] Comment on above: Order Comment: Speci men Type: BLOOD SPECIMEN Ordering Facility: [facility] Address: [address] [place] [address] Performed By: #### 5 0190-8, 2275- #### [facility] CLIA [id number] [address] [place] [address] [place] Chloride [Moles/Vol] 107 mmol/L High 97-105 [facility] Comment on above: Order Comment: Speci men Type: BLOOD SPECIMEN Ordering Facility: [facility] Address: [address] [place], [place] [address] Performed By: #### 5 0190-8, 2276-02 #### [facility] CLIA [id number] [address] [place] [address] [place] CO2 [Moles/Vol] 24 mmol/L Normal 22-30 [facility] Comment on above: Order Comment: Speci men Type: BLOOD SPECIMEN Ordering Facility: [facility] Address: [address] Performed By: #### 5 0190-8, 2275- #### [facility] CLIA [id number] [address] [place] [address] [place] Creatinine [Mass/Vol] 0.61 mg/dL Normal 0.58-0.96 [facility] Comment on above: Order Comment: Speci men Type: BLOOD SPECIMEN Ordering Facility: [facility] Address: [address] [place] [id number] Performed By: #### 5 0190-8, 2276-4 #### [facility] CLIA [id number] [address] [place] [address] [place] Creatinine and Glomerular filtration rate.predicted panel (S/P/Bld) 101 mL/min/1.73m??? Normal >=60 [facility] Comment on above: Order Comment: Adonis mayo Type: BLOOD SPECIMEN Ordering Facility: [facility] Address: [address] [place] [address] Result Comment: Kae mated Glomerular Filtration Rate [...] Performed By: #### 5 0190-8, 2276-4 #### [facility] CLIA [id number] [address] [place] [address] [place] Glucose [Mass/Vol] 94 mg/dL Normal 74-99 [facility] Comment on above: Order Comment: Adonis mayo Type: BLOOD SPECIMEN Ordering Facility: [facility] Address: [address] [place] [address] Result Comment: The [place] [employer] (ADA) provides guidance for cutoff [...] Standards of Medical Care in Diabetes 2016, [place] [employer]. Diabetes Care. 2016.39(Suppl 1). Performed By: #### 5 0190-8, 2276-02 #### [facility] CLIA [id number] [address] [place] [address] [place] Potassium [Moles/Vol] 4.5 mmol/L Normal 3.7-5.1 [facility] Comment on above: Order Comment: Speci men Type: BLOOD SPECIMEN Ordering Facility: [facility] Address: [address] [place] [address] Performed By: #### 5 0190-8, 2276-02 #### [facility] CLIA [id number] [address] [place] [address] [place] Protein [Mass/Vol] 6.4 g/dL Normal 6.3-8.0 [facility] Comment on above: Order Comment: Speci men Type: BLOOD SPECIMEN Ordering Facility: [facility] Address: [address] Performed By: #### 5 0190-8, 2276-02 #### [facility] CLIA [id number] [address] [place] [address] [place] Sodium [Moles/Vol] 141 mmol/L Normal 136-144 [facility] Comment on above: Order Comment: Speci men Type: BLOOD SPECIMEN Ordering Facility: [facility] Address: [address] [place] [address] Performed By: #### 5 0190-8, 2276-02 #### [facility] CLIA [id number] [address] [place] [id number] [place] Urea nitrogen [Mass/Vol] 13 mg/dL Normal 7-21 [facility] Comment on above: Order Comment: Speci men Type: BLOOD SPECIMEN Ordering Facility: [facility] Address: [address] Performed By: #### 5 0190-8, 2275- #### [facility] CLIA [id number] [address] [id number] [place] ECG COMPLETEon 08-29-2023 ECG COMPLETE Ventricular Rate : 7 6 BPM Atrial Rate : 76 BPM P-R Interval : 194 ms QRS Duration : 82 ms Q-T Interval : 392 ms QTC Calculation(Bazett) : 441 ms Calculated P [place] : 22 degrees Calculated R [place] : 58 degrees Calculated T [place] : 43 degrees NORMAL SINUS RHYTHM POSSIBLE LEFT ATRIAL ENLARGEMENT LEFT VENTRICULAR HYPERTROPHY ABNORMAL ECG Confirmed by MING MITCHELL MD ([id number]) on 09/02/2023 9:46:08 PM NAME : ISABEL WADDELL PID : [id number] : 1960 Gender : Female Race : ORD : [id number] Procedure Date : Aug 29 2023 13:01:41 Edit Date : Sep 02 2023 21:46:10 Diagnosis: NORMAL SINUS RHYTHM POSSIBLE LEFT ATRIAL ENLARGEMENT LEFT VENTRICULAR HYPERTROPHY ABNORMAL ECG Confirmed by MING MITCHELL MD ([id number]) on 09/02/2023 9:46:08 PM Test Reason : Location : 119 : A17 A17 Overread By : MING MITCHELL MD Edited By : MING MITCHELL MD Referred By : [place] Acquired by : YASMIN AVILA [facility] ECHOon 08-29-2023 Echocardiography Echocardiography Report: Transthoracic Echo [facility] GUNNAR-2 Date of service: 08/29/2023 1:42:07 PM COUNSELOR Ordering physician: MIKE THOMPSON Indication: Shortness of breath Technologist: Ashlee Mera [facility] Interpreting physician: Mikki Etienen MD PATIENT: Name: MRS. ISABEL WADDELL : [...] * * Final * * * [facility] Medical Image : [id number] Normal [facility] HISTORY PHYSICALon HISTORY PHYSICAL HNO ID: [id number] Author: Elder Galan APRN.MONSERRAT Service: ? Author [...] team about CBC once drawn. Elder Galan APRN.[employer] Pelvic Floor Colorectal Surgery Risk of morbidity, mortality and/or complications of treatment plan: high Normal [facility] TYPE + SCREENon 08-29-2023 ABO group Nom (Bld) O [facility] Blood group antibody screen Ql Negative [facility] HIstorical Ab Scr Status Negative [facility] Rh Nom (Bld) Positive [facility] Type and Screen Expiration 09/01/2023 23:59 [facility] ABO O Normal [facility] Comment on above: Order Comment: Speci men Type: BLOOD SPECIMEN Ordering Facility: [facility] Address: [address] [place] [address] Performed By: #### 5 0190-8, 6-4 #### [facility] CLIA [id number] [address] OF [facility] HISTORICAL AB SCR STATUS Negative Normal [facility] Comment on above: Order Comment: Speci men Type: BLOOD SPECIMEN Ordering Facility: [facility] Address: [address] [place] [address] Performed By: #### 5 0190-8, 2275-4 #### [facility] CLIA [id number] [address] [place] [address] [place] Rh Nom (Bld) Positive Normal [facility] Comment on above: Order Comment: Speci men Type: BLOOD SPECIMEN Ordering Facility: [facility] Address: [address] [place] [address] Performed By: #### 5 0190-8, 2275-4 #### [facility] CLIA [id number] [address] [place] [address] [place] TYPE AND SCREEN EXPIRATION 09/01/2023 23:59 Normal [facility] Comment on above: Order Comment: Speci men Type: BLOOD SPECIMEN Ordering Facility: [facility] Address: [address] [place] [address] Performed By: #### 5 0190-8, 2275-4 #### [facility] CLIA [id number] [address] [place] [address] [place] XR CHEST 2V [...] of the thoracic spine. IMPRESSION: See Result. Refrigeration Unit Repairer: DANA Transcribe Date/Time: Aug 29 2023 9:55A Dictated by : KRYSTIAN MULTANI MD This examination was interpreted and the report reviewed and electronically signed by: KRYSTIAN MULTANI MD on Aug 29 2023 9:57AM EST [id number] Normal [facility] CT CHEST WO IVCONon 08-22-20 CT CHEST WO IVCON * * *Final Report* * * DATE OF EXAM: Aug 22 2023 8:49AM [facility] 0541 - CT CHEST WO IVCON [...] wall is unremarkable. Upper abdomen: Prior cholecystectomy. [employer] (topogram) images: No additional findings. IMPRESSION: 1. No convincing findings of interstitial lung disease. There is excessive dynamic collapse of mainstem bronchi. 2. Unchanged scattered calcified granulomas. No suspicious lung nodules. Refrigeration Unit Repairer: DANA Transcribe Date/Time: Aug 22 2023 8:56A Dictated by : RICHARD LOVELACE MD This examination was interpreted and the report reviewed and electronically signed by: RICHARD LOVELACE MD on Aug 22 2023 9:01AM EST [id number] Normal [facility] CNPNon 07-22-2023 CNPN Telephone (HOMERO) ISABEL WADDELL ([id number]) 1960 F Date Time Provider Department 07/22/23 [place] During your visit today, we recorded the following information about you: Ying [facility] 07/22/2023 3:18 PM Signed Isabel Waddell accepts [...] mg by mouth daily at bedtime. - [id number]-BFM-OSR-FISH OIL-L.CASEI ORAL Take by mouth once daily. [...] Status:Closed by GABY NICHOLS RN on 07/22/23 [facility] Telephone (RentoboN) ISABEL WADDELL ([id number]) 1960 F Date Time Provider Department 07/22/23 [place] During your visit today, we recorded the following information about you: Enid Baker 07/22/2023 2:49 PM Signed [phone] Patient calling to reschedule her EUA. Allergies [...] mg by mouth daily at bedtime. - NJJN6-KNJ-KLB-FISH OIL-L.CASEI ORAL Take by mouth once daily. [...] Status:Closed by ENID BAKER on 07/22/23 Normal [facility] Comprehensive metabolic 2000 panelon 07-05-2023 Albumin [Mass/Vol] 4.0 g/dL 3.9 - 4.9 g/dL [facility] ALP [Catalytic activity/Vol] 161 U/L High 34 - 123 U/L [facility] ALT [Catalytic activity/Vol] 47 U/L High 7 - 38 U/L [facility] Anion gap [Moles/Vol] 11 mmol/L 9 - 18 mmol/L [facility] AST [Catalytic activity/Vol] 41 U/L High 13 - 35 U/L [facility] Bilirubin [Mass/Vol] 0.3 mg/dL 0.2 - 1 .3 mg/dL [facility] Calcium [Mass/Vol] 9.5 mg/dL 8.5 - 10. 2 mg/dL [facility] Chloride [Moles/Vol] 105 mmol/L 97 - 10 5 mmol/L [facility] CO2 [Moles/Vol] 26 mmol/L 22 - 30 mmol/L [facility] Creatinine [Mass/Vol] 0.74 mg/dL 0.58 - 0.96 mg/dL [facility] Estimated Glomerular Filtration Rate 91 mL/min/1.73m >=60 mL/min/1.73m [facility] Glucose [Mass/Vol] 104 mg/dL High 74 - 99 mg/dL [facility] Potassium [Moles/Vol] 4.5 mmol/L 3.7 - 5.1 mmol/L [facility] Protein [Mass/Vol] 6.3 g/dL 6.3 - 8.0 g/dL [facility] Sodium [Moles/Vol] 142 mmol/L 136 - 144 mmol/L [facility] Urea nitrogen [Mass/Vol] 16 mg/dL 7 - 21 mg/dL [facility] CBC W Auto Differential pane l (Bld)on 07-04-2023 Basophils (Bld) [#/Vol] 0.03 10*3/uL Normal <0.11 [facility] Comment on above: Order Comment: Speci men Type: BLOOD SPECIMEN Ordering Facility: [facility] Address: [address] [place] [address] Performed By: #### 5 0190-8, 2275- #### [facility] CLIA [id number] [address] [place] [address] [place] Basophils/100 WBC (Bld) 0.9 % Normal [facility] Comment on above: Order Comment: Speci men Type: BLOOD SPECIMEN Ordering Facility: [facility] Address: [address] Performed By: #### 5 0190-8, 2275- #### [facility] CLIA [id number] [address] [place] [address] [place] Differential cell count method Nom (Bld) Auto Normal [facility] Comment on above: Order Comment: Speci men Type: BLOOD SPECIMEN Ordering Facility: [facility] Address: [address] Performed By: #### 5 0190-8, 2276-02 #### [facility] CLIA [id number] [address] [place] [address] [place] Eosinophils (Bld) [#/Vol] 0.16 10*3/uL Normal <0.46 [facility] Comment on above: Order Comment: Speci men Type: BLOOD SPECIMEN Ordering Facility: [facility] Address: [address] [place] [address] Performed By: #### 5 0190-8, 2276-02 #### [facility] CLIA [id number] [address] [place] [address] [place] Eosinophils/100 WBC (Bld) 4.9 % Normal [facility] Comment on above: Order Comment: Speci men Type: BLOOD SPECIMEN Ordering Facility: [facility] Address: [address] [place] [address] Performed By: #### 5 0190-8, 2276-02 #### [facility] CLIA [id number] [address] [place] [address] [place] Erythrocyte distribution width (RBC) [Ratio] 19.9 % High 11.5-15.0 [facility] Comment on above: Order Comment: Speci men Type: BLOOD SPECIMEN Ordering Facility: [facility] Address: [address] [place] [address] Performed By: #### 5 0190-8, 2276-02 #### [facility] CLIA [id number] [address] [place] [address] [place] Hematocrit (Bld) [Volume fraction] 25.1 % Low 36.0-46.0 [facility] Comment on above: Order Comment: Speci men Type: BLOOD SPECIMEN Ordering Facility: [facility] Address: [address] [place] [address] Performed By: #### 5 0190-8, 2275- #### [facility] CLIA [id number] [address] [place] [address] [place] Hemoglobin (Bld) [Mass/Vol] 7.1 g/dL Low 11.5-15.5 [facility] Comment on above: Order Comment: Speci men Type: BLOOD SPECIMEN Ordering Facility: [facility] Address: [address] [place] [address] Performed By: #### 5 0190-8, 2275-4 #### [facility] CLIA [id number] [address] [place] [address] [place] Immature granulocytes (Bld) [#/Vol] 10*3/uL Normal <0.10 [facility] Comment on above: Order Comment: Speci men Type: BLOOD SPECIMEN Ordering Facility: [facility] Address: [address] [place] [address] Performed By: #### 5 0190-8, 2275-4 #### [facility] CLIA [id number] [address] [place] [address] [place] Immature granulocytes/100 WBC (Bld) 0.3 % Normal [facility] Comment on above: Order Comment: Speci men Type: BLOOD SPECIMEN Ordering Facility: [facility] Address: [address] [place] [address] Performed By: #### 5 0190-8, 2275-4 #### [facility] CLIA [id number] [address] [place] [address] [place] Lymphocytes (Bld) [#/Vol] 1.12 10*3/uL Normal 1.00-4.00 [facility] Comment on above: Order Comment: Speci men Type: BLOOD SPECIMEN Ordering Facility: [facility] Address: [address] [place], [place] [address] Performed By: #### 5 0190-8, 2275- #### [facility] CLIA [id number] [address] [place] [address] [place] Lymphocytes/100 WBC (Bld) 34.6 % Normal [facility] Comment on above: Order Comment: Speci men Type: BLOOD SPECIMEN Ordering Facility: [facility] Address: [address] [place], [place] [address] Performed By: #### 5 0190-8, 2276-02 #### [facility] CLIA [id number] [address] [place] [address] [place] MCH (RBC) [Entitic mass] 19.2 pg Low 26.0-34.0 [facility] Comment on above: Order Comment: Speci men Type: BLOOD SPECIMEN Ordering Facility: [facility] Address: [address] [place], [place] [address] Performed By: #### 5 0190-8, 2276-02 #### [facility] CLIA [id number] [facility] [place] [address] [place] MCHC (RBC) [Mass/Vol] 28.3 g/dL Low 30.5-36.0 [facility] Comment on above: Order Comment: Speci men Type: BLOOD SPECIMEN Ordering Facility: [facility] Address: [address] [place], [place] [address] Performed By: #### 5 0190-8, 2276-02 #### [facility] CLIA [id number] [address] [place] [address] [place] MCV (RBC) [Entitic vol] 67.8 fL Low 80.0-100.0 [facility] Comment on above: Order Comment: Speci men Type: BLOOD SPECIMEN Ordering Facility: [facility] Address: [address] [place], [place] [address] Performed By: #### 5 0190-8, 2276-02 #### [facility] CLIA [id number] [address] [place] [address] [place] Monocytes (Bld) [#/Vol] 0.49 10*3/uL Normal <0.87 [facility] Comment on above: Order Comment: Speci men Type: BLOOD SPECIMEN Ordering Facility: [facility] Address: [address] Performed By: #### 5 0190-8, 2275- #### [facility] CLIA [id number] [address] [place] [address] [place] Monocytes/100 WBC (Bld) 15.1 % Normal [facility] Comment on above: Order Comment: Speci men Type: BLOOD SPECIMEN Ordering Facility: [facility] Address: [address] Performed By: #### 5 0190-8, 2275- #### [facility] CLIA [id number] [address] [place] [address] [place] Neutrophils (Bld) [#/Vol] 1.43 10*3/uL Low 1.45-7.50 [facility] Comment on above: Order Comment: Speci men Type: BLOOD SPECIMEN Ordering Facility: [facility] Address: [address] Performed By: #### 5 0190-8, 2276-02 #### [facility] CLIA [id number] [address] [place] [address] [place] Neutrophils/100 WBC (Bld) 44.2 % Normal [facility] Comment on above: Order Comment: Speci men Type: BLOOD SPECIMEN Ordering Facility: [facility] Address: [address] Performed By: #### 5 0190-8, 2275- #### [facility] CLIA [id number] [address] [place] [address] [place] Nucleated RBC (Bld) [#/Vol] 10*3/uL Normal <0.01 [facility] Comment on above: Order Comment: Speci men Type: BLOOD SPECIMEN Ordering Facility: [facility] Address: [address] Performed By: #### 5 0190-8, 2275- #### [facility] CLIA [id number] [address] [place] [address] [place] Nucleated RBC/100 WBC (Bld) [Ratio] 0.0 /100 WBC Normal [facility] Comment on above: Order Comment: Speci men Type: BLOOD SPECIMEN Ordering Facility: [facility] Address: [address] [place], [place] [address] Performed By: #### 5 0190-8, 2275- #### [facility] CLIA [id number] [address] [place] [address] [place] Platelet mean volume (Bld) [Entitic vol] 9.8 fL Normal 9.0-12.7 [facility] Comment on above: Order Comment: Speci men Type: BLOOD SPECIMEN Ordering Facility: [facility] Address: [address] [place], [place] [address] Performed By: #### 5 0190-8, 2276-02 #### [facility] CLIA [id number] [address] [place] [address] [place] Platelets (Bld) [#/Vol] 304 10*3/uL Normal 150-400 [facility] Comment on above: Order Comment: Speci men Type: BLOOD SPECIMEN Ordering Facility: [facility] Address: [address] [place] [address] Performed By: #### 5 0190-8, 2276-02 #### [facility] CLIA [id number] [address] [place] [address] [place] RBC (Bld) [#/Vol] 3.70 10*6/uL Low 3.90-5.20 [facility] Comment on above: Order Comment: Speci men Type: BLOOD SPECIMEN Ordering Facility: [facility] Address: [address] [place], [place] [address] Performed By: #### 5 0190-8, 2275-4 #### [facility] CLIA [id number] [address] [facility] [place] [address] [place] WBC (Bld) [#/Vol] 3.24 10*3/uL Low 3.70-11.00 [facility] Comment on above: Order Comment: Speci men Type: BLOOD SPECIMEN Ordering Facility: [facility] Address: [address] [place] [address] Performed By: #### 5 0190-8, 2276-4 #### [facility] CLIA [id number] [address] [place] [address] [place] Basophils (Bld) [#/Vol] 0.03 10*3/uL <0.11 k/uL [facility] Basophils/100 WBC (Bld) 0.9 % [facility] Differential cell count method Nom (Bld) Auto [facility] Eosinophils (Bld) [#/Vol] 0.16 10*3/uL <0.46 k/uL [facility] Eosinophils/100 WBC (Bld) 4.9 % [facility] Erythrocyte distribution width (RBC) [Ratio] 19.9 % High 11.5 - 15.0 % [facility] Hematocrit (Bld) [Volume fraction] 25.1 % Low 36.0 - 46.0 % [facility] Hemoglobin (Bld) [Mass/Vol] 7.1 g/dL Low 11.5 - 15.5 g/dL [facility] Immature granulocytes (Bld) [#/Vol] <0.10 k/uL [facility] Immature granulocytes/100 WBC (Bld) 0.3 % [facility] Lymphocytes (Bld) [#/Vol] 1.12 10*3/uL 1.00 - 4.00 k/uL [facility] Lymphocytes/100 WBC (Bld) 34.6 % [facility] MCH (RBC) [Entitic mass] 19.2 pg Low 26.0 - 34.0 pg [facility] MCHC (RBC) [Mass/Vol] 28.3 g/dL Low 30.5 - 36.0 g/dL [facility] MCV (RBC) [Entitic vol] 67.8 fL Low 80.0 - 100.0 fL [facility] Monocytes (Bld) [#/Vol] 0.49 10*3/uL <0.87 k/uL [facility] Monocytes/100 WBC (Bld) 15.1 % [facility] Neutrophils (Bld) [#/Vol] 1.43 10*3/uL Low 1.45 - 7.50 k/uL [facility] Neutrophils/100 WBC (Bld) 44.2 % [facility] Nucleated RBC (Bld) [#/Vol] <0.01 k/uL [facility] Nucleated RBC/100 WBC (Bld) [Ratio] 0.0 /100 WBC [facility] Platelet mean volume (Bld) [Entitic vol] 9.8 fL 9.0 - 12.7 fL [facility] Platelets (Bld) [#/Vol] 304 10*3/uL 150 - 400 k/uL [facility] RBC (Bld) [#/Vol] 3.70 10*6/uL Low 3.90 - 5.2 0 m/uL [facility] WBC (Bld) [#/Vol] 3.24 10*3/uL Low 3.70 - 11. 00 k/uL [facility] CNOVon 07-04-2023 CNOV Office Visit (HOMERO ) ISABEL WADDELL ([id number]) 1960 F Date Time Provider Department 07/04/23 [...] regular bowel movements. 03/05/23 Juan Manuel Medina, [employer]: Isabel Waddell is a 62 year old [...] 150 mg by mouth daily at bedtime. UCAO4-BJY-XWY-FISH OIL-L.CASEI ORAL Take by mouth once daily. Lactobac no.41/Bifidobact no.7 (PROBIOTIC (more content not included)... Normal [facility] Comprehensive metabolic 2000 panelon 07-04-2023 Albumin [Mass/Vol] 4.0 g/dL Normal 3.9-4.9 [facility] Comment on above: Order Comment: Speci men Type: BLOOD SPECIMEN Ordering Facility: [facility] Address: [address] [place], [place] [address] [address] Performed By: #### 2 8565-8 #### [facility] CLIA [id number] [address] [place] [address] [place] ALP [Catalytic activity/Vol] 161 U/L High 34-123 [facility] Comment on above: Order Comment: Speci men Type: BLOOD SPECIMEN Ordering Facility: [facility] Address: [address] [place] [address] Performed By: #### 2 4323-8 #### [facility] CLIA [id number] [address] [place] [address] [place] ALT [Catalytic activity/Vol] 47 U/L High 7-38 [facility] Comment on above: Order Comment: Speci men Type: BLOOD SPECIMEN Ordering Facility: [facility] Address: [address] [place] [address] Performed By: #### 2 4323-8 #### [facility] CLIA [id number] [address] [place] [address] [place] Anion gap [Moles/Vol] 11 mmol/L Normal 9-18 [facility] Comment on above: Order Comment: Speci men Type: BLOOD SPECIMEN Ordering Facility: [facility] Address: [address] [place], [place] [address] Performed By: #### 2 4323-8 #### [facility] CLIA [id number] [address] [place] [address] [place] AST [Catalytic activity/Vol] 41 U/L High 13-35 [facility] Comment on above: Order Comment: Speci men Type: BLOOD SPECIMEN Ordering Facility: [facility] Address: [address] [place], [place] [address] Performed By: #### 2 4323-8 #### [facility] CLIA [id number] [address] [place] [address] [place] Bilirubin [Mass/Vol] 0.3 mg/dL Normal 0.2-1.3 [facility] Comment on above: Order Comment: Speci men Type: BLOOD SPECIMEN Ordering Facility: [facility] Address: [address] Performed By: #### 2 4323-8 #### [facility] CLIA [id number] [address] [place] [address] [place] Calcium [Mass/Vol] 9.5 mg/dL Normal 8.5-10.2 [facility] Comment on above: Order Comment: Speci men Type: BLOOD SPECIMEN Ordering Facility: [facility] Address: [address] Performed By: #### 2 4323-8 #### [facility] CLIA [id number] [address] [place] [address] [place] Chloride [Moles/Vol] 105 mmol/L Normal 97-105 [facility] Comment on above: Order Comment: Speci men Type: BLOOD SPECIMEN Ordering Facility: [facility] Address: [address] Performed By: #### 2 4323-8 #### [facility] CLIA [id number] [address] [place] [address] [place] CO2 [Moles/Vol] 26 mmol/L Normal 22-30 [facility] Comment on above: Order Comment: Speci men Type: BLOOD SPECIMEN Ordering Facility: [facility] Address: [address] Performed By: #### 2 4323-8 #### [facility] CLIA [id number] [address] [place] [address] [place] Creatinine [Mass/Vol] 0.74 mg/dL Normal 0.58-0.96 [facility] Comment on above: Order Comment: Speci men Type: BLOOD SPECIMEN Ordering Facility: [facility] Address: [address] Performed By: #### 2 4323-8 #### [facility] CLIA [id number] [facility] [place] [address] [place] Creatinine and Glomerular filtration rate.predicted panel (S/P/Bld) 91 mL/min/1.73m??? Normal >=60 [facility] Comment on above: Order Comment: Adonis mayo Type: BLOOD SPECIMEN Ordering Facility: [facility] Address: [address] [place] [address] Result Comment: Kae mated Glomerular Filtration Rate [...] GFR. Performed By: #### 2 4323-8 #### [facility] CLIA [id number] [address] [place] [address] [place] [facility] Glucose [Mass/Vol] 104 mg/dL High 74-99 [facility] Comment on above: Order Comment: Adonis mayo Type: BLOOD SPECIMEN Ordering Facility: [facility] Address: [address] [place] [address] Result Comment: The [place] Diabetes [employer] (ADA) provides guidance for cutoff [...] Standards of Medical Care in Diabetes 2016, [place] [employer]. Diabetes Care. 2016.39(Suppl 1). Performed By: #### 2 4323-8 #### [facility] CLIA [id number] [address] [place] [address] [place] Potassium [Moles/Vol] 4.5 mmol/L Normal 3.7-5.1 [facility] Comment on above: Order Comment: Speci men Type: BLOOD SPECIMEN Ordering Facility: [facility] Address: [address] [place] [address] Performed By: #### 2 4323-8 #### [facility] CLIA [id number] [address] [place] [address] [place] Protein [Mass/Vol] 6.3 g/dL Normal 6.3-8.0 [facility] Comment on above: Order Comment: Speci men Type: BLOOD SPECIMEN Ordering Facility: [facility] Address: [address] [place] [address] Performed By: #### 2 4323-8 #### [facility] CLIA [id number] [address] [place] [address] [place] Sodium [Moles/Vol] 142 mmol/L Normal 136-144 [facility] Comment on above: Order Comment: Speci men Type: BLOOD SPECIMEN Ordering Facility: [facility] Address: [address] [place] [address] Performed By: #### 2 4323-8 #### [facility] CLIA [id number] [address] [place] [address] [place] Urea nitrogen [Mass/Vol] 16 mg/dL Normal 7-21 [facility] Comment on above: Order Comment: Speci men Type: BLOOD SPECIMEN Ordering Facility: [facility] Address: [address] [place] [address] Performed By: #### 2 4323-8 #### [facility] CLIA [id number] [address] [place] [address] [place] HISTORY PHYSICALon 3 HISTORY PHYSICAL HNO ID: [id number] Author: [place], DO Service: ? Author Type: Physician Type: HANDP Filed: 07/14/2023 11:36 AM Note Text: COLORECTAL SURGERY New Patient Visit July 01, 2023 Chief Complaint: Radiation proctitis History of Present Illness: sIabel Waddell is a 63 year old year [...] regular bowel movements. 03/05/23 Juan Manuel Medina, [employer]: Isabel Waddell is a 62 year old [...] 150 mg by mouth daily at bedtime. FYLD9-YHI-TVV-FISH OIL-L.CASEI ORAL Take by mouth once daily. Lactobac no.41/Bifidobact no.7 (PROBIOTIC-10 ORAL) Take by mouth once daily. MULTIVITAMIN TAB Take one(1) tablet daily. 0 B COMPLEX VITAMINS CAP Take one(1) capsule daily. 0 CALCIUM CARBONATE-VIT D3-MINERALS 600 MG-400 UNIT TAB Take 1 tablet by mouth twice daily. 0 Current Facility-Administered Medications Medication (more content not included)... Normal [facility] CNOVon 06-27-2023 CNOV Office Visit (PMNA11 ) ISABEL WADDELL ([id number]) 1960 F Date Time Provider Department 06/27/23 10:30 AM HEIDI MENARD PMNA11 During your visit today, we recorded the following information about you: Temperature Pulse Respiration Blood pressure 97.4 degrees 70/minute 16/minute 141/76 Weight 69.4 kg Heidi Menard MD 06/27/2023 11:47 AM Addendum Ms. Waddell is a 63 year old female who presents to the [facility] [place]. Consultation requested by Self. 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 Silica: No significant exposure. Gosper: No significant exposure. Organic HP antigen: No [...] and de-a (more content not included)... Normal [facility] HEMOGLOBINon 03-21-2023 Hemoglobin (Bld) [Mass/Vol] 9.1 g/dL Critically low 12.0-16.0 [facility] Comment on above: Performed By: #### H GB ####[facility] [address] [place], [place] [address]Bq. Cheryl Monzon XR CHEST 2 Von 03-10-2023 [...] by: HENRY LOCK Date: 2023-03-10 13:57 Normal [facility] CNOVon 03-05-2023 CNOV Office Visit (GASTLN ) ISABEL WADDELL ([id number]) 1960 F Date Time Provider Department 03/05/23 [...] Abs Lymph 1.00 - 4.00 k/uL 1.31 Troup% % 11.1 Abs Troup <0.87 k/uL 0.50 Eosin% % 3.1 Abs [...] or Indwelling (more content not included)... Normal [facility] HISTORY PHYSICALon 3 HISTORY PHYSICAL HNO ID: [id number] Author: Juan Manuel Medina APRN.[employer] Service: ? Author Type: Nurse Practitioner Type: [...] Abs Lymph 1.00 - 4.00 k/uL 1.31 Troup% % 11.1 Abs Troup <0.87 k/uL 0.50 Eosin% % 3.1 Abs [...] mouth daily (more content not included)... Normal [facility] Covid-19 PCR (CVDTBH)on SARS-CoV-2 (COVID-19) RNA ANGELA+probe Ql (Unsp spec) Not detected Normal NOT DETECTED [facility] Comment on above: Result Comment: [...] for this test is supported by the [place] of Health and Human Service's declaration that [...] used). Performed By: #### C VDTB #### [facility] [address] [place] [address] Dr. Cheryl Monzon INFLUENZA A AND B AGon [facility] SEE BELOW Normal [facility] Comment on above: Result Comment: Nega tive for Flu A protein angiten. Infection due to Flu A cannot be ruled out. Flu A angiten in the sample may be below the detection limit of the test. Performed By: #### I NFLUAB #### [facility] [address] [place] [address] Dr. Cheryl Monzon [facility] SEE BELOW Normal [facility] Comment on above: Result Comment: Nega tive for Flu B protein antigen. Infection due to Flu B cannot be ruled out. Flu B antigen in the sample may be below the detection limit of the test. Performed By: #### I NFLUAB #### [facility] [address] [place] [address] Dr. Cheryl Monzon INFLUENZA A AG Negative Normal NEGATIVE SEE COMMENT [facility] Comment on above: Performed By: #### I NFLUAB #### [facility] [address] [place] [address] Dr. Cheryl Monzon INFLUENZA B AG Negative Normal NEGATIVE SEE COMMENT [facility] Comment on above: Performed By: #### I NFLUAB #### [facility] [address] [address] [address] Cheryl Monzon FERRITIN BLDon 01-04-2023 Ferritin [Mass/Vol] 14.2 ng/mL Low 14.7 - 2 05.1 ng/mL [facility] Iron and Iron binding capaci ty panelon 01-04-2023 Iron [Mass/Vol] 77 ug/dL 41 - 186 ug/dL [facility] Iron binding capacity [Mass/Vol] 382 ug/dL 232 - 386 ug/dL [facility] Iron/TIBC [Molar ratio] 20.2 % 15.0 - 57.0 % [facility] CBC W Auto Differential pane l (Bld)on 01-03-2023 Basophils (Bld) [#/Vol] 10*3/uL Normal <0.11 [facility] Comment on above: Order Comment: Speci men Type: BLOOD SPECIMENOrdering Facility: [facility] Address: [address] [place] [address] Performed By: #### 5 7021-8 ####[facility] [id number] [address] [place] Basophils/100 WBC (Bld) 0.4 % Normal [facility] Comment on above: Order Comment: Speci men Type: BLOOD SPECIMENOrdering Facility: [facility] Address: [address] [address] Performed By: #### 5 7021-8 ####[facility] [id number] [place] [address] [place] Differential cell count method Nom (Bld) Auto Normal [facility] Comment on above: Order Comment: Speci men Type: BLOOD SPECIMENOrdering Facility: [facility] Address: [address] [address] Performed By: #### 5 7021-8 ####[facility] [id number] [place] [address] [place] Eosinophils (Bld) [#/Vol] 0.14 10*3/uL Normal <0.46 [facility] Comment on above: Order Comment: Speci men Type: BLOOD SPECIMENOrdering Facility: [facility] Address: [address] [place] [address] Performed By: #### 5 7021-8 ####[facility] [id number] [place] [address] [place] Eosinophils/100 WBC (Bld) 3.1 % Normal [facility] Comment on above: Order Comment: Speci men Type: BLOOD SPECIMENOrdering Facility: [facility] Address: [address] [place] [address] Performed By: #### 5 7021-8 ####[facility] [id number] [place] [address] [place] Erythrocyte distribution width (RBC) [Ratio] 13.0 % Normal 11.5-15.0 [facility] Comment on above: Order Comment: Speci men Type: BLOOD SPECIMENOrdering Facility: [facility] Address: [address] [place], [place] [address] Performed By: #### 5 7021-8 ####[facility] [id number] [place] [address] [place] Hematocrit (Bld) [Volume fraction] 35.4 % Low 36.0-46.0 [facility] Comment on above: Order Comment: Speci men Type: BLOOD SPECIMENOrdering Facility: [facility] Address: [address] [place], [place] [address] Performed By: #### 5 7021-8 ####[facility] [id number] [place] [address] [place] Hemoglobin (Bld) [Mass/Vol] 11.5 g/dL Normal 11.5-15.5 [facility] Comment on above: Order Comment: Speci men Type: BLOOD SPECIMENOrdering Facility: [facility] Address: [address] Performed By: #### 5 7021-8 ####[facility] [id number] [place] [address] [place] Immature granulocytes (Bld) [#/Vol] 10*3/uL Normal <0.10 [facility] Comment on above: Order Comment: Speci men Type: BLOOD SPECIMENOrdering Facility: [facility] Address: [address] Performed By: #### 5 7021-8 ####[facility] [id number] [address] [place] Immature granulocytes/100 WBC (Bld) 0.2 % Normal [facility] Comment on above: Order Comment: Speci men Type: BLOOD SPECIMENOrdering Facility: [facility] Address: [address] [place], [place] [address] Performed By: #### 5 7021-8 ####[facility] [id number] [place] [address] [place] Lymphocytes (Bld) [#/Vol] 1.31 10*3/uL Normal 1.00-4.00 [facility] Comment on above: Order Comment: Speci men Type: BLOOD SPECIMENOrdering Facility: [facility] Address: [address] [place], [place] [address] Performed By: #### 5 7021-8 ####[facility] [id number] [place] [address] [place] Lymphocytes/100 WBC (Bld) 29.0 % Normal [facility] Comment on above: Order Comment: Speci men Type: BLOOD SPECIMENOrdering Facility: [facility] Address: [address] [place], [place] [address] Performed By: #### 5 7021-8 ####[facility] [id number] [address] MCH (RBC) [Entitic mass] 30.0 pg Normal 26.0-34.0 [facility] Comment on above: Order Comment: Speci men Type: BLOOD SPECIMENOrdering Facility: [facility] Address: [address] [place] [address] Performed By: #### 5 7021-8 ####[facility] [id number] [address] MCHC (RBC) [Mass/Vol] 32.5 g/dL Normal 30.5-36.0 [facility] Comment on above: Order Comment: Speci men Type: BLOOD SPECIMENOrdering Facility: [facility] Address: [address] [place] [address] Performed By: #### 5 7021-8 ####[facility] [id number] [address] MCV (RBC) [Entitic vol] 92.4 fL Normal 80.0-100.0 [facility] Comment on above: Order Comment: Speci men Type: BLOOD SPECIMENOrdering Facility: [facility] Address: [address] [place] [address] Performed By: #### 5 7021-8 ####[facility] [id number] [place] [address] [place] Monocytes (Bld) [#/Vol] 0.50 10*3/uL Normal <0.87 [facility] Comment on above: Order Comment: Speci men Type: BLOOD SPECIMENOrdering Facility: [facility] Address: [address] [place] [address] Performed By: #### 5 7021-8 ####[facility] [id number] [address] [place] Monocytes/100 WBC (Bld) 11.1 % Normal [facility] Comment on above: Order Comment: Speci men Type: BLOOD SPECIMENOrdering Facility: [facility] Address: [address] Performed By: #### 5 7021-8 ####[facility] [id number] [place] [address] [place] Neutrophils (Bld) [#/Vol] 2.53 10*3/uL Normal 1.45-7.50 [facility] Comment on above: Order Comment: Speci men Type: BLOOD SPECIMENOrdering Facility: [facility] Address: [address] [address] Performed By: #### 5 7021-8 ####[facility] [id number] [place] [address] [place] Neutrophils/100 WBC (Bld) 56.2 % Normal [facility] Comment on above: Order Comment: Speci men Type: BLOOD SPECIMENOrdering Facility: [facility] Address: [address] Performed By: #### 5 7021-8 ####[facility] [id number] [place] [address] [place] Nucleated RBC (Bld) [#/Vol] 10*3/uL Normal <0.01 [facility] Comment on above: Order Comment: Speci men Type: BLOOD SPECIMENOrdering Facility: [facility] Address: [address] Performed By: #### 5 7021-8 ####[facility] [id number] [place] [address] [place] Nucleated RBC/100 WBC (Bld) [Ratio] 0.0 /100 WBC Normal [facility] Comment on above: Order Comment: Speci men Type: BLOOD SPECIMENOrdering Facility: [facility] Address: [address] Performed By: #### 5 7021-8 ####[facility] [id number] [place] [address] [place] Platelet mean volume (Bld) [Entitic vol] 9.9 fL Normal 9.0-12.7 [facility] Comment on above: Order Comment: Speci men Type: BLOOD SPECIMENOrdering Facility: [facility] Address: [address] [place], [place] [address] Performed By: #### 5 7021-8 ####[facility] [id number] [place] [address] [place] Platelets (Bld) [#/Vol] 235 10*3/uL Normal 150-400 [facility] Comment on above: Order Comment: Speci men Type: BLOOD SPECIMENOrdering Facility: [facility] Address: [address] [place], [place] [address] Performed By: #### 5 7021-8 ####[facility] [id number] [place] [address] [place] RBC (Bld) [#/Vol] 3.83 10*6/uL Low 3.90-5.20 [facility] Comment on above: Order Comment: Speci men Type: BLOOD SPECIMENOrdering Facility: [facility] Address: [address] [place], [place] [address] Performed By: #### 5 7021-8 ####[facility] [id number] [place] [address] [place] WBC (Bld) [#/Vol] 4.51 10*3/uL Normal 3.70-11.00 [facility] Comment on above: Order Comment: Speci men Type: BLOOD SPECIMENOrdering Facility: [facility] Address: [address] [place], [place] [address] Performed By: #### 5 7021-8 ####[facility] [id number] [place] [address] [place] Basophils (Bld) [#/Vol] <0.11 k/uL [facility] Basophils/100 WBC (Bld) 0.4 % [facility] Differential cell count method Nom (Bld) Auto [facility] Eosinophils (Bld) [#/Vol] 0.14 10*3/uL <0.46 k/uL [facility] Eosinophils/100 WBC (Bld) 3.1 % [facility] Erythrocyte distribution width (RBC) [Ratio] 13.0 % 11.5 - 15.0 % [facility] Hematocrit (Bld) [Volume fraction] 35.4 % Low 36.0 - 46.0 % [facility] Hemoglobin (Bld) [Mass/Vol] 11.5 g/dL 11.5 - 15.5 g/dL [facility] Immature granulocytes (Bld) [#/Vol] <0.10 k/uL [facility] Immature granulocytes/100 WBC (Bld) 0.2 % [facility] Lymphocytes (Bld) [#/Vol] 1.31 10*3/uL 1.00 - 4.00 k/uL [facility] Lymphocytes/100 WBC (Bld) 29.0 % [facility] MCH (RBC) [Entitic mass] 30.0 pg 26.0 - 34.0 pg [facility] MCHC (RBC) [Mass/Vol] 32.5 g/dL 30.5 - 36.0 g/dL [facility] MCV (RBC) [Entitic vol] 92.4 fL 80.0 - 100.0 fL [facility] Monocytes (Bld) [#/Vol] 0.50 10*3/uL <0.87 k/uL [facility] Monocytes/100 WBC (Bld) 11.1 % [facility] Neutrophils (Bld) [#/Vol] 2.53 10*3/uL 1.45 - 7.50 k/uL [facility] Neutrophils/100 WBC (Bld) 56.2 % [facility] Nucleated RBC (Bld) [#/Vol] <0.01 k/uL [facility] Nucleated RBC/100 WBC (Bld) [Ratio] 0.0 /100 WBC [facility] Platelet mean volume (Bld) [Entitic vol] 9.9 fL 9.0 - 12.7 fL [facility] Platelets (Bld) [#/Vol] 235 10*3/uL 150 - 400 k/uL [facility] RBC (Bld) [#/Vol] 3.83 10*6/uL Low 3.90 - 5.2 0 m/uL [facility] WBC (Bld) [#/Vol] 4.51 10*3/uL 3.70 - 11. 00 k/uL [facility] CNOVSPon 01-03-2023 CNOVSP Visit (SP) Office (BHAVNA) ISABEL WADDELL ([id number]) 1960 F Date Time Provider Department 01/03/23 3:20 PM HENRY RAMOS During your visit today, we recorded the following information about you: Temperature Pulse Blood pressure Weight 97.8 degrees 95/minute 141/87 71.2 kg Height 1.676 m Henry Ramos MD 01/12/2023 11:27 PM Signed Gynecologic Oncology [facility] Follow up visit Date of service: [...] differentiation, FIGO grade 2. Neg LVSI, 13% CO pT1a (IA): Tumor limited to endometrium or invades less than 1/2 of the myometrium 05/25/2021 Vaginal biopsy Vagina, biopsy - Consistent with endometrioid adenocarcinoma (see comment). GZ/ka 05/28/2021 COMMENT The tumor cells are diffusely and strongly positive for immunohistochemical stain for Bitely 8, supporting the above diagnosis. The patient [...] ORAL T (more content not included)... Normal [facility] Ferritin SerPl-mCncon 2022 Ferritin [Mass/Vol] 14.2 ng/mL Low 14.7-205.1 [facility] Comment on above: Order Comment: Adonis mayo Type: BLOOD SPECIMEN Ordering Facility: [facility] Address: [address] [place], [place] [address] Performed By: #### 5 0190-8, 2276-02 #### [facility] CLIA [id number] [address] [place] [address] [place] Iron and Iron binding capaci ty panelon 01-03-2023 Iron [Mass/Vol] 77 ug/dL Normal 41-186 [facility] Comment on above: Order Comment: Adonis mayo Type: BLOOD SPECIMEN Ordering Facility: [facility] Address: [address] [place], [place] [address] Performed By: #### 5 0190-8, 2276-02 #### [facility] CLIA [id number] [address] [place] [address] [place] Iron binding capacity [Mass/Vol] 382 ug/dL Normal 232-386 [facility] Comment on above: Order Comment: Speci men Type: BLOOD SPECIMEN Ordering Facility: [facility] Address: [address] [place] [id number] Performed By: #### 5 0190-8, 2276-02 #### [facility] CLIA [id number] [address] [facility] [address] OF [facility] Iron/TIBC [Molar ratio] 20.2 % Normal 15.0-57.0 [facility] Comment on above: Order Comment: Speci men Type: BLOOD SPECIMEN Ordering Facility: [facility] Address: [address] Performed By: #### 5 0190-8, 2276-02 #### [facility] CLIA [id number] [address] [place] Vaishnavi 12-25-2022 DEBORA Telephone (BHAVNA) ISABEL WADDELL ([id number]) 1960 F Date Time Provider Department 12/25/22 ARETHA PENA During your visit today, we recorded the following information about you: Aretha Pena RN 12/25/2022 2:19 PM Signed ----- Message from [facility] sent at 12/25/2022 12:04 PM EST ----- Regarding: Rachel Patient bleeding and clotting almost daily since Colonoscopy. September was the Colonoscopy. Concerned and would like to know if she should schedule an appointment. [phone] Aretha Pena RN 12/25/2022 2:24 PM Signed [...] mg by mouth daily at bedtime. - [id number]-ERP-FISH OIL-L.CASEI ORAL Take by mouth once daily. [...] Status:Closed by ARETHA PENA on 12/25/22 Normal [facility] Covid-19 PCR (CVDTBH)on SARS-CoV-2 (COVID-19) RNA ANGELA+probe Ql (Unsp spec) Not detected Normal NOT DETECTED [facility] Comment on above: Result Comment: [...] for this test is supported by the [place] of Health and Human Service's declaration that [...] used). Performed By: #### C VDTBH #### [facility] [address] [place] [address] Dr. Cheryl Monzon INFLUENZA A AND B AGon 11-19 [facility] SEE BELOW Normal [facility] Comment on above: Result Comment: Nega tive for Flu A protein angiten. Infection due to Flu A cannot be ruled out. Flu A angiten in the sample may be below the detection limit of the test. Performed By: #### I NFLUAB #### [facility] [address] [place] [address] Dr. Cheryl Monzon INFLUBNEGH SEE BELOW Normal [facility] Comment on above: Result Comment: Nega tive for Flu B protein antigen. Infection due to Flu B cannot be ruled out. Flu B antigen in the sample may be below the detection limit of the test. Performed By: #### I NFLUAB #### [facility] [address] [address] [address] Cheryl Monzon INFLUENZA A AG Negative Normal NEGATIVE SEE COMMENT [facility] Comment on above: Performed By: #### I NFLUAB #### [facility] [address] [address] [address] Cheryl Monzon INFLUENZA B AG Negative Normal NEGATIVE SEE COMMENT [facility] Comment on above: Performed By: #### I NFLUAB #### [facility] [address] [place] [address] Dr. Cheryl Monzon MG MAMM SCREEN 3D RAGHU CADon 10-04-2022 MG MAMM SCREEN 3D RAGHU CAD Patient: ISABEL WADDELL Exam Date: 10/04/2022 : 1960 Gender:F Ordering : DR ROLAND SERRANO D.O. Admission #: [id number] Family : Order #: [id number] CLICK HERE TO VIEW EXAM RADIOLOGY REPORT [...] Treatments radiation-hysterectomy Family Cancers None LOCATION: [facility] BREAST COMPOSITION: Scattered areas fibroglandular [...] MD on 10/04/2022 at 13:53 Normal [facility] COLONOSCOPY (THERAPEUTIC)on 09-26-2022 [facility] T3, TOTAL (TRIIODOTHYRONINE) on 09-05-2022 T3, TOTAL 132 ng/dL Normal 71-180 [facility] Comment on above: Performed By: #### T 3TOTAL ####[facility] [address] [place] [address]Dr. Cheryl Monzon CBC AUTO DIFFon 09-04-2022 BASO # 0.0 103/ul Normal 0.0-0.1 [facility] Comment on above: Performed By: #### C BC ####[facility] [address] [place], [place] [address]Dr. Cheryl Monzon Basophils/100 WBC (Bld) 0.4 % Normal 0.2-2.0 [facility] Comment on above: Performed By: #### C BC ####[facility] [address] [place], [place] [address]Dr. Cheryl Monzon EO # 0.1 103/ul Normal 0.0-0.7 [facility] Comment on above: Performed By: #### C BC ####[facility] [address] [place], [place] [address]Dr. Cheryl Monzon Eosinophils/100 WBC (Bld) 4.9 % Normal 0.9-7.0 [facility] Comment on above: Performed By: #### C BC ####[facility] [address] [place], [place] [address]Dr. Cheryl Monzon Erythrocyte distribution width (RBC) [Ratio] 12.8 % Normal 11.0-15.0 [facility] Comment on above: Performed By: #### C BC ####[facility] [address] [place], [place] [address]Dr. Cheryl Monzon Hematocrit (Bld) [Volume fraction] 36.7 % Normal 36.0-48.0 [facility] Comment on above: Performed By: #### C BC ####[facility] [address] [place], [place] [address]Dr. Cheryl Monzon Hemoglobin (Bld) [Mass/Vol] 11.8 g/dL Critically low 12.0-16.0 [facility] Comment on above: Performed By: #### C BC ####[facility] [address] [place] [id number]. Cheryl Monzon IG # 0.01 10e3/ul Normal 0.00-0.03 [facility] Comment on above: Performed By: #### C BC ####[facility] [address] [place] [id number]. Cheryl Monzon IG % 0.4 % Normal 0.0-0.5 [facility] Comment on above: Performed By: #### C BC ####[facility] [address] [place] [address]Dr. Cheryl Monzon LYMPH # 0.8 103/ul Critically low 1.2-3.8 [facility] Comment on above: Performed By: #### C BC ####[facility] [address] [place] [address]Dr. Cheryl Monzon Lymphocytes/100 WBC (Bld) 28.6 % Normal 20.5-60.0 [facility] Comment on above: Performed By: #### C BC ####[facility] [address] [place] [address]Dr. Cheryl Monzon MANUAL DIFF REQ NO Normal [facility] Comment on above: Performed By: #### C BC ####[facility] [address] [place] [address]Dr. Cheryl Monzon MCH (RBC) [Entitic mass] 30.7 pg Normal 26.7-34.0 [facility] Comment on above: Performed By: #### C BC ####[facility] [address] [place], [place] [address]Dr. Cheryl Monzon MCHC (RBC) [Mass/Vol] 32.2 g/dL Normal 29.9-35.2 [facility] Comment on above: Performed By: #### C BC ####[facility] [address] [place] [address]Dr. Cheryl Monzon MCV (RBC) [Entitic vol] 95.6 fL Normal 81.0-99.0 [facility] Comment on above: Performed By: #### C BC ####[facility] [address] [place] [id number]. Cheryl Monzon MONO # 0.3 103/ul Normal 0.3-0.8 [facility] Comment on above: Performed By: #### C BC ####[facility] [address] [place] [id number]. Cheryl Monzon Monocytes/100 WBC (Bld) 11.7 % Normal 1.7-12.0 [facility] Comment on above: Performed By: #### C BC ####[facility] [address] [place] [id number]. Cheryl Monzon NEUT # 1.4 103/ul Normal 1.4-6.5 [facility] Comment on above: Performed By: #### C BC ####[facility] [address] [place] [id number]. Cheryl Monzon Neutrophils/100 WBC (Bld) 54.0 % Normal 43.0-75.0 [facility] Comment on above: Performed By: #### C BC ####[facility] [address] [place] [phone]. Cheryl Monzon Platelet mean volume (Bld) [Entitic vol] 9.2 fL Critically low 9.5-13.5 [facility] Comment on above: Performed By: #### C BC ####[facility] [address] [place] [id number]. Cheryl Monzon PLT 217 103/ul Normal 150-450 [facility] Comment on above: Performed By: #### C BC ####[facility] [address]quel[address] [place] [address]Dr. Cheryl Monzon RBC 3.84 106/ul Critically low 4.20-5.40 [facility] Comment on above: Performed By: #### C BC ####[facility] [address] [place] [id number]. Cheryl Monzon WBC 2.7 103/ul Critically low 4.0-11.0 [facility] Comment on above: Performed By: #### C BC ####[facility] [address] [place], [place] [address]JcDr. Cheryl Monzon FREE T4on 09-04-2022 Free T4 [Mass/Vol] 0.83 ng/dL Normal 0.76-1.46 [facility] Comment on above: Performed By: #### F T4 #### [facility] [address] [place] [id number] Cheryl Monzon GLYCOHEMOGLOBIN A1Con 2021 ADA RECOMMENDATION SEE BELOW Normal [facility] Comment on above: Result Comment: ADA RECOMMENDED LIMIT 4.0 - 6.0 ADA THERAPEUTIC TARGET < 7.0 ACTION SUGGESTED > 7.0 Performed By: #### A 1C #### [facility] [address] [place] [address] [address] Cheryl Monzon Glucose [Mass/Vol] 111 mg/dL Normal [facility] Comment on above: Performed By: #### A 1C #### [facility] [address] [address] [address] Cheryl Monzon HbA1c (Bld) [Mass fraction] 5.5 % Normal 4.5-6.2 [facility] Comment on above: Performed By: #### A 1C #### [facility] [address] [address] [address] Cheryl Monzon LIPID PROFILEon 09-04-2022 CHOL-HDL RATIO NORM SEE BELOW Normal [facility] Comment on above: Result Comment: 3.3 - 4.4 LOW RISK 4.4 - 7.1 AVERAGE RISK 7.1 - 11.0 MODERATE RISK >11.0 HIGH RISK Performed By: #### T SH, LIPID, CMP ####[facility] [address] [place] [id number]. Cheryl Monzon Cholesterol [Mass/Vol] 201 mg/dL Critically high <=200 [facility] Comment on above: Performed By: #### T SH, LIPID, CMP ####[facility] [address] [place] [address]Dr. Cheryl Monzon Cholesterol in HDL [Mass/Vol] 78 mg/dL Critically high 40-60 [facility] Comment on above: Performed By: #### T SH, LIPID, CMP ####[facility] [address] [place] [id number]. Cheryl Monzon Cholesterol in LDL [Mass/Vol] 112.8 mg/dL Normal [facility] Comment on above: Performed By: #### T PUSHPA, LIPID, CMP ####[facility] [address] [place] [address]Dr. Cheryl Monzon Cholesterol.total/Chol esterol in HDL [Mass ratio] 2.6 {ratio} Normal [facility] Comment on above: Performed By: #### T PUSHPA, LIPID, CMP ####[facility] [address] [place] [address]Dr. Cheryl Monzon HDL NORMAL > or = 60 mg/dl - LO W CARDIOVASCULAR RISK <40 mg/dl - HIGH CARDIOVASCULAR RISK Normal [facility] Comment on above: Performed By: #### T PUSHPA, LIPID, CMP ####[facility] [address] [place] [address]Dr. Cheryl Monzon LDL CALC NORMAL SEE BELOW Normal [facility] Comment on above: Result Comment: <100 mg/dl OPTIMAL 100 - 129 mg/dl NEAR OR ABOVE OPTIMAL 130 - 159 mg/dl BORDERLINE HIGH 160 - 189 mg/dl HIGH >190 mg/dl VERY HIGH Performed By: #### T PUSHPA, LIPID, CMP ####[facility] [address] [place] [id number]. Cheryl Monzon Triglyceride [Mass/Vol] 51 mg/dL Normal <=150 [facility] Comment on above: Performed By: #### T PUSHPA, LIPID, CMP ####[facility] [address] [place] [address]Dr. Cheryl Monzon VLDL CALC 10.2 mg/dL Normal [facility] Comment on above: Performed By: #### T PUSHPA, LIPID, CMP ####[facility] [address] [place] [address]Dr. Cheryl Monzon PROF 14(COMP METB)on 022 Albumin [Mass/Vol] 3.3 g/dL Critically low 3.4-5.0 [facility] Comment on above: Performed By: #### T SH, LIPID, CMP #### [facility] [address] [address] [address] Cheryl Monzon Albumin/Globulin [Mass ratio] 1.0 {ratio} Normal [facility] Comment on above: Performed By: #### T SH, LIPID, CMP #### [facility] [address] [address] [address] Cheryl Monzon ALP [Catalytic activity/Vol] 94 U/L Normal 46-116 [facility] Comment on above: Performed By: #### T SH, LIPID, CMP #### [facility] [address] [address] [address] Cheryl Monzon ALT [Catalytic activity/Vol] 53 U/L Normal 14-59 [facility] Comment on above: Performed By: #### T SH, LIPID, CMP #### [facility] [address] [place] [address] Dr. Cheryl Monzon Anion gap [Moles/Vol] 8.8 mmol/L Normal [facility] Comment on above: Performed By: #### T SH, LIPID, CMP #### [facility] [address] [address] [address] Cheryl Monzon AST [Catalytic activity/Vol] 42 U/L Critically high 15-37 [facility] Comment on above: Performed By: #### T SH, LIPID, CMP #### [facility] [address] [address] [address] Cheryl Monzon Bilirubin [Mass/Vol] 0.3 mg/dL Normal 0.2-1.0 [facility] Comment on above: Performed By: #### T SH, LIPID, CMP #### [facility] [address] [place] [address] [address] Cheryl Monzon Calcium [Mass/Vol] 8.8 mg/dL Normal 8.5-10.1 [facility] Comment on above: Performed By: #### T SH, LIPID, CMP #### [facility] [address] [address] [address] Cheryl Monzon Chloride [Moles/Vol] 106 mmol/L Normal 98-107 [facility] Comment on above: Performed By: #### T SH, LIPID, CMP #### [facility] [address] [address] [address] Cheryl Monzon CO2 [Moles/Vol] 30.7 mmol/L Normal 21.0-32.0 [facility] Comment on above: Performed By: #### T SH, LIPID, CMP #### [facility] [address] [place] [address] [address] Cheryl Monzon Creatinine [Mass/Vol] 0.66 mg/dL Normal 0.55-1.02 [facility] Comment on above: Performed By: #### T SH, LIPID, CMP #### [facility] [address] [place] [address] [address] Cheryl Monzon EGFR-AF BERMUDIAN >60 Normal >=60 [facility] Comment on above: Performed By: #### T SH, LIPID, CMP #### [facility] [address] [place] [address] [address] Cheryl Monzon EGFR-NON AF BERMUDIAN >60 Normal >=60 [facility] Comment on above: Performed By: #### T SH, LIPID, CMP #### [facility] [address] [place] [address] [address] Cheryl Monzon Globulin (S) [Mass/Vol] 3.4 g/dL Normal [facility] Comment on above: Performed By: #### T SH, LIPID, CMP #### [facility] [address] [place] [address] [address] Cheryl Monzon Glucose [Mass/Vol] 115 mg/dL Critically high 74-106 [facility] Comment on above: Performed By: #### T SH, LIPID, CMP #### [facility] [address] [place] [address] [address] Cheryl Monzon Potassium [Moles/Vol] 4.5 mmol/L Normal 3.5-5.1 [facility] Comment on above: Performed By: #### T SH, LIPID, CMP #### [facility] [address] [place] [address] [address] Cheryl Monzon Protein [Mass/Vol] 6.7 g/dL Normal 6.4-8.2 [facility] Comment on above: Performed By: #### T SH, LIPID, CMP #### [facility] [address] [place] [address] Dr. Cheryl Monzon Sodium [Moles/Vol] 141 mmol/L Normal 136-145 [facility] Comment on above: Performed By: #### T SH, LIPID, CMP #### [facility] [address] [place] [address] Dr. Cheryl Monzon Urea nitrogen [Mass/Vol] 16.0 mg/dL Normal 7.0-18.0 [facility] Comment on above: Performed By: #### T SH, LIPID, CMP #### [facility] [address] [place] [address] Dr. Cheryl Monzon Urea nitrogen/Creatinine [Mass ratio] 24.2 mg/mg Normal [facility] Comment on above: Performed By: #### T SH, LIPID, CMP #### [facility] [address] [place] [address] Dr. Cheryl Monzon TSHon 09-04-2022 TSH 0.009 uIU/mL Critically low 0.358-3.740 [facility] Comment on above: Performed By: #### T SH, LIPID, CMP #### [facility] [address] [place] [address] Dr. Cheryl Monzon [facility] SARS-CoV-2 (COVID-19) RNA ANGELA+probe Ql (Unsp spec) Not detected Normal NOT DETECTED [facility] Comment on above: Result Comment: When [...] for this test is supported by the [employer] of Health and Human Service's declaration that [...] used). Performed By: #### C VDTB #### [facility] [address] [place], [place] [address] Dr. Cheryl Monzon CBC with Diffon 11-22-2021 Abs. Basophil 0.00 k/uL Normal 0.0-0.2 [facility] Comment on above: Performed By: #### C DP, CMPX, SED, LAC #### [facility] [address] [place] [address] Working Second Hand: Jacob Campos MD Abs.Neutrophil (Seg) 2.80 k/uL Normal 2.5-7.0 [facility] Comment on above: Performed By: #### C DP, CMPX, SED, LAC #### [facility] [address] [place] [address] Working Second Hand: Jacob Campos MD Auto Diff Performed YES Normal [facility] Comment on above: Performed By: #### C DP, CMPX, SED, LAC #### [facility] [address] [place] [address] Working Second Hand: Jacob Campos MD Basophils/100 WBC (Bld) 1 % Normal 0-2 [facility] Comment on above: Performed By: #### C DP, CMPX, SED, LAC #### [facility] [address] [place] [address] Working Second Hand: Jacob Campos MD Eosinophils (Bld) [#/Vol] 0.10 10*3/uL Normal 0.0-0.4 [facility] Comment on above: Performed By: #### C DP, CMPX, SED, LAC #### [facility] [address] [place] [address] Working Second Hand: Jacob Campos MD Eosinophils/100 WBC (Bld) 3 % Normal 0-5 [facility] Comment on above: Performed By: #### C DP, CMPX, SED, LAC #### [facility] [address] [place], [place] [id number] Working Second Hand: Jacob Campos MD Erythrocyte distribution width (RBC) [Ratio] 13.6 % Normal 12.1-15.2 [facility] Comment on above: Performed By: #### C DP, CMPX, SED, LAC #### [facility] [address] [place] [id number] Working Second Hand: Jacob Campos MD Hematocrit (Bld) [Volume fraction] 33.4 % Low 36-46 [facility] Comment on above: Performed By: #### C DP, CMPX, SED, LAC #### [facility] [address] [place] [id number] Working Second Hand: Jacob Campos MD Hemoglobin (Bld) [Mass/Vol] 11.3 g/dL Low 12.0-16.0 [facility] Comment on above: Performed By: #### C DP, CMPX, SED, LAC #### [facility] [address] [place] [phone] Working Second Hand: Jacob Campos MD Lymphocytes (Bld) [#/Vol] 0.80 10*3/uL Low 1.0-4.8 [facility] Comment on above: Performed By: #### C DP, CMPX, SED, LAC #### [facility] [address] [place] [address] Working Second Hand: Jacob Campos MD Lymphocytes/100 WBC (Bld) 19 % Normal 15-40 [facility] Comment on above: Performed By: #### C DP, CMPX, SED, LAC #### [facility] [address] [place] [id number] Working Second Hand: Jacob Campos MD MCH (RBC) [Entitic mass] 30.5 pg Normal 26-34 [facility] Comment on above: Performed By: #### C DP, CMPX, SED, LAC #### [facility] [address] [place], [place] [phone] Working Second Hand: Jacob Campos MD MCHC (RBC) [Mass/Vol] 33.8 g/dL Normal 31-37 [facility] Comment on above: Performed By: #### C DP, CMPX, SED, LAC #### [facility] [address] [place], [place] [phone] Working Second Hand: Jacob Campos MD MCV (RBC) [Entitic vol] 90.4 fL Normal 80-100 [facility] Comment on above: Performed By: #### C DP, CMPX, SED, LAC #### [facility] [address] [place], [place] [phone] Working Second Hand: Jacob Campos MD Monocytes (Bld) [#/Vol] 0.50 10*3/uL Normal 0.0-1.0 [facility] Comment on above: Performed By: #### C DP, CMPX, SED, LAC #### [facility] [address] [place], [place] [phone] Working Second Hand: Jacob Campos MD Monocytes/100 WBC (Bld) 12 % High 4-8 [facility] Comment on above: Performed By: #### C DP, CMPX, SED, LAC #### [facility] [address] [place], [place] [phone] Working Second Hand: Jacob Campos MD Neutrophil (Seg) 65 % Normal 47-75 [facility] Comment on above: Performed By: #### C DP, CMPX, SED, LAC #### [facility] [address] [place], [place] [phone] Working Second Hand: Jacob Campos MD Platelets (Bld) [#/Vol] 378 10*3/uL Normal 140-450 [facility] Comment on above: Performed By: #### C DP, CMPX, SED, LAC #### [facility] [address] [place] [address] Working Second Hand: Jacob Campos MD RBC (Bld) [#/Vol] 3.70 10*6/uL Low 4.0-5.2 [facility] Comment on above: Performed By: #### C DP, CMPX, SED, LAC #### [facility] [address] [place] [address] Working Second Hand: Jacob Campos MD WBC (Bld) [#/Vol] 4.3 10*3/uL Normal 3.5-11.0 [facility] Comment on above: Performed By: #### C DP, CMPX, SED, LAC #### [facility] [address] [place] [address] Working Second Hand: Jacob Campos MD Comp Metabolic Pr/rfx MGon 0 11-22-2021 (cont.) Normal [facility] Comment on above: Result Comment: Aver age GFR for 60-69 years old: 85 mL/min/1.73sq m Chronic Kidney Disease: <60 mL/min/1.73sq m Kidney failure: <15 mL/min/1.73sq m eGFR calculated using average adult body mass. Additional eGFR calculator available at: http://www.Hitmeister.Groopt/multiple_crcl_2012.htm Performed By: #### C DP, CMPX, SED, LAC #### [facility] [address] [place] [address] Working Second Hand: Jacob Campos MD Albumin [Mass/Vol] 3.5 g/dL Normal 3.5-5.2 [facility] Comment on above: Performed By: #### C DP, CMPX, SED, LAC #### [facility] [address] [place], [place] [phone] Working Second Hand: Jacob Campos MD Alkaline Phos 239 U/L High 35-104 [facility] Comment on above: Performed By: #### C DP, CMPX, SED, LAC #### [facility] [address] [place], [place] [phone] Working Second Hand: Jacob Campos MD ALT [Catalytic activity/Vol] 23 U/L Normal 5-33 [facility] Comment on above: Performed By: #### C DP, CMPX, SED, LAC #### [facility] [address] [place], [place] [phone] Working Second Hand: Jacob Campos MD Anion gap [Moles/Vol] 11 mmol/L Normal 9-17 [facility] Comment on above: Performed By: #### C DP, CMPX, SED, LAC #### [facility] [address] [place], [place] [phone] Working Second Hand: Jacob Campos MD AST [Catalytic activity/Vol] 21 U/L Normal <32 [facility] Comment on above: Performed By: #### C DP, CMPX, SED, LAC #### [facility] [address] [place], [place] [phone] Working Second Hand: Jacob Campos MD Bilirubin [Mass/Vol] 0.27 mg/dL Low 0.30-1.20 [facility] Comment on above: Performed By: #### C DP, CMPX, SED, LAC #### [facility] [address] [place], [place] [phone] Working Second Hand: Jacob Campos MD BUN/CRE Ratio 22 High 9-20 [facility] Comment on above: Performed By: #### C DP, CMPX, SED, LAC #### [facility] [address] [place], [place] [phone] Working Second Hand: Jacob Campos MD Calcium [Mass/Vol] 9.5 mg/dL Normal 8.6-10.4 [facility] Comment on above: Performed By: #### C DP, CMPX, SED, LAC #### [facility] [address] [place] [phone] Working Second Hand: Jacob Campos MD Chloride [Moles/Vol] 102 mmol/L Normal 98-107 [facility] Comment on above: Performed By: #### C DP, CMPX, SED, LAC #### [facility] [address] [place] [phone] Working Second Hand: Jacob Campos MD CO2 [Moles/Vol] 26 mmol/L Normal 20-31 [facility] Comment on above: Performed By: #### C DP, CMPX, SED, LAC #### [facility] [address] [place] [phone] Working Second Hand: Jacob Campos MD Creatinine [Mass/Vol] 0.58 mg/dL Normal 0.50-0.90 [facility] Comment on above: Performed By: #### C DP, CMPX, SED, LAC #### [facility] [address] [place] [phone] Working Second Hand: Jacob Campos MD GFR, Amer >60 Normal >60 [facility] Comment on above: Performed By: #### C DP, CMPX, SED, LAC #### [facility] [address] [place] [address] Working Second Hand: Jacob Campos MD GFR,non Amer >60 Normal >60 [facility] Comment on above: Performed By: #### C DP, CMPX, SED, LAC #### [facility] [address] [place] [phone] Working Second Hand: Jacob Campos MD Glucose [Mass/Vol] 109 mg/dL High 70-99 [facility] Comment on above: Performed By: #### C DP, CMPX, SED, LAC #### [facility] [address] [place], [place] [phone] Working Second Hand: Jacob Campos MD Potassium [Moles/Vol] 3.7 mmol/L Normal 3.7-5.3 [facility] Comment on above: Performed By: #### C DP, CMPX, SED, LAC #### [facility] [address] [place] [address] Working Second Hand: Jacob Campos MD Protein [Mass/Vol] 7.0 g/dL Normal 6.4-8.3 [facility] Comment on above: Performed By: #### C DP, CMPX, SED, LAC #### [facility] [address] [place] [address] Working Second Hand: Jacob Campos MD Sodium [Moles/Vol] 139 mmol/L Normal 135-144 [facility] Comment on above: Performed By: #### C DP, CMPX, SED, LAC #### [facility] [address] [place] [phone] Working Second Hand: Jacob Campos MD Urea nitrogen [Mass/Vol] 13 mg/dL Normal 8-23 [facility] Comment on above: Performed By: #### C DP, CMPX, SED, LAC #### [facility] [address] [place] [address] Working Second Hand: Jacob Campos MD Lactic Acidon 11-22-2021 Lactate [Moles/Vol] 0.7 mmol/L Normal 0.5-2.2 [facility] Comment on above: Performed By: #### C DP, CMPX, SED, LAC #### [facility] [address] [place] [address] Working Second Hand: Jacob Campos MD Sedimentation Rateon 022 Sedimentation Rate 48 mm High 0-30 [facility] Comment on above: Performed By: #### C DP, CMPX, SED, LAC #### [facility] [address] [place] [address] Working Second Hand: Jacob Campos MD Urinalysis, Routineon 2021 Bilirubin, SemiQt,Ur Negative Normal NEG [facility] Comment on above: Performed By: #### U A #### [facility] [address] [place], [place] [phone] Working Second Hand: Jacob Campos MD Blood, Urine Negative Normal NEG [facility] Comment on above: Performed By: #### U A #### [facility] [address] [place] [address] Working Second Hand: Jacob Campos MD Clarity (U) Clear Normal CLEAR [facility] Comment on above: Performed By: #### U A #### [facility] [address] [place], [place] [phone] Working Second Hand: Jacob Campos MD Color (U) Yellow Normal YEL [facility] Comment on above: Performed By: #### U A #### [facility] [address] [place], [place] [phone] Working Second Hand: Jacob Campos MD Comment Normal [facility] Comment on above: Performed By: #### U A #### [facility] [address] [place], [place] [phone] Working Second Hand: Jacob Campos MD Glucose Ql (U) Negative Normal NEG [facility] Comment on above: Performed By: #### U A #### [facility] [address] [place] [address] Working Second Hand: Jacob Campos MD Ketones Ql (U) Negative Normal NEG [facility] Comment on above: Performed By: #### U A #### [facility] [address] [place], [place] [phone] Working Second Hand: Jacob Campos MD Leukocyte esterase Test strip Ql (U) Negative Normal NEG [facility] Comment on above: Performed By: #### U A #### [facility] [address] [place], [place] [phone] Working Second Hand: Jacob Campos MD Nitrite,Ur Negative Normal NEG [facility] Comment on above: Performed By: #### U A #### [facility] [address] [place], [place] [phone] Working Second Hand: Jacob Campos MD PH,Ur 6.5 Normal 5.0-8.0 [facility] Comment on above: Performed By: #### U A #### [facility] [address] [place], [place] [phone] Working Second Hand: aJcob Campos MD Protein Ql (U) Negative Normal NEG [facility] Comment on above: Performed By: #### U A #### [facility] [address] [place], [place] [phone] Working Second Hand: Jacob Campos MD Spec. Grabill,Ur 1.015 Normal 1.005-1.030 [facility] Comment on above: Performed By: #### U A #### [facility] [address] [place], [place] [phone] Working Second Hand: Jacob Campos MD Urobilinogen,Ur Normal Normal NORM [facility] Comment on above: Performed By: #### U A #### [facility] [address] [place], [place] [phone] Working Second Hand: Jacob Campos MD Basic Metabolic Panelon Calcium [Mass/Vol] 9.4 mg/dL Normal 8.2-10.2 [facility] Comment on above: Performed By: #### C BC, BMP #### [facility] [address] [place] [address] [place] Chloride [Moles/Vol] 101 mmol/L Normal 95-114 [facility] Comment on above: Performed By: #### C BC, BMP #### [facility] [address] [place] [address] [place] CO2 [Moles/Vol] 26.3 mmol/L Normal 22.0-30.0 [facility] Comment on above: Performed By: #### C BC, BMP #### [facility] [address] Creatinine [Mass/Vol] 0.72 mg/dL Normal 0.44-1.03 [facility] Comment on above: Performed By: #### C BC, BMP #### [facility] [address] [place] [address] [place] Creatinine Clr Calc Pharmacy 76.81 [facility] Comment on above: Result Comment: PERF ORMED BY: [place] [address] PATHOLOGIST BOARDER HAND CLAIRE ANTHONY M.D. Performed By: #### C BC, BMP #### [facility] [address] Estimated GFR ( Damon > 60 [facility] Comment on above: Result Comment: GFR estimated reference range: According to KDOQI guidelines, <60 ml/min/1.73m2 is sufficient to diagnose a patient with chronic kidney disease. Performed By: #### C BC, BMP #### [address] Estimated GFR (Non- Am > 60 [facility] Comment on above: Performed By: #### C BC, BMP #### [facility] [address] [place] [address] [place] Glucose [Mass/Vol] 104 mg/dL High 70-100 [facility] Comment on above: Result Comment: [place] Glucose Reference Range is dependent on time and content of last meal. Glucose of more than 200 mg/dL in a nonstressed, ambulatory subject supports the diagnosis of Diabetes Mellitus. ADA recommended reference range Performed By: #### C BC, BMP #### [facility] [address] [place] [address] [place] Potassium [Moles/Vol] 3.8 mmol/L Normal 3.5-5.1 [facility] Comment on above: Performed By: #### C BC, BMP #### [facility] [address] Sodium [Moles/Vol] 138 mmol/L Normal 136-146 [facility] Comment on above: Performed By: #### C BC, BMP #### [facility] [address] Urea nitrogen [Mass/Vol] 13 mg/dL Normal 9-23 [facility] Comment on above: Performed By: #### C BC, BMP #### [facility] [address] CBC with Diffon 11-21-2021 Abs.Imm.Granulocyte NOT REPORTED Normal 0.00-0.30 [facility] Comment on above: Performed By: #### C DP, CMPX, SED, LAC #### [facility] [address] [place] [address] Working Second Hand: Jacob Campos MD Immature Granulocyte NOT REPORTED Normal 0 [facility] Comment on above: Performed By: #### C DP, CMPX, SED, LAC #### [facility] [address] [place] [address] Working Second Hand: Jacob Campos MD MPV NOT REPORTED Normal 6.0-12.0 [facility] Comment on above: Performed By: #### C DP, CMPX, SED, LAC #### [facility] [address] [place] [phone] Working Second Hand: Jacob Campos MD NRBC Automated NOT REPORTED Normal [facility] Comment on above: Performed By: #### C DP, CMPX, SED, LAC #### [facility] [address] [place] [phone] Working Second Hand: Jacob Campos MD Platelet Comment NOT REPORTED Normal [facility] Comment on above: Performed By: #### C DP, CMPX, SED, LAC #### [facility] [address] [place], [place] [phone] Working Second Hand: Jacob Campos MD RBC morphology finding Nom (Bld) NOT REPORTED Normal [facility] Comment on above: Performed By: #### C DP, CMPX, SED, LAC #### [facility] [address] [place] [phone] Working Second Hand: Jacob Campos MD WBC Morphology NOT REPORTED Normal [facility] Comment on above: Performed By: #### C DP, CMPX, SED, LAC #### [facility] [address] [place] [phone] Working Second Hand: Jacob Campos MD Comp Metabolic Pr/rfx MGon 0 11-21-2021 Albumin/Glob Ratio NOT REPORTED Normal 1.0-2.5 [facility] Comment on above: Performed By: #### C DP, CMPX, SED, LAC #### [facility] [address] [place] [address] Working Second Hand: Jacob Campos MD Staging: NOT REPORTED Normal [facility] Comment on above: Performed By: #### C DP, CMPX, SED, LAC #### [facility] [address] [place] [address] Working Second Hand: Jacob Campos MD Complete Blood Count Auto Di ffon 11-21-2021 Basophils (Bld) [#/Vol] 0.0 10*3/uL Normal 0.0-0.2 [facility] Comment on above: Result Comment: PERF ORMED BY: [place] [id number] PATHOLOGIST BOARDER HAND CLAIRE ANTHONY M.D. Performed By: #### C BC, BMP #### [place] [address] [place] Basophils/100 WBC (Bld) 0.7 % Normal . [facility] Comment on above: Performed By: #### C BC, BMP #### [facility] [address] [place] [address] [place] Eosinophils (Bld) [#/Vol] 0.1 10*3/uL Normal 0.0-0.45 [facility] Comment on above: Performed By: #### C BC, BMP #### [facility] [address] [place] [address] [place] Eosinophils/100 WBC (Bld) 2.8 % Normal . [facility] Comment on above: Performed By: #### C BC, BMP #### [facility] [address] Erythrocyte distribution width (RBC) [Ratio] 13.2 % Normal 11.9-15.3 [facility] Comment on above: Performed By: #### C BC, BMP #### [facility] [address] Hematocrit (Bld) [Volume fraction] 35.7 % Normal 34.0-46.4 [facility] Comment on above: Performed By: #### C BC, BMP #### [facility] [address] [place] [address] [place] Hemoglobin (Bld) [Mass/Vol] 11.9 g/dL Normal 11.8-15.4 [facility] Comment on above: Performed By: #### C BC, BMP #### [facility] [address] [place] [address] [place] Lymphocytes (Bld) [#/Vol] 0.8 10*3/uL Low 1.00-4.8 [facility] Comment on above: Performed By: #### C BC, BMP #### [facility] [address] [place] [phone] [place] Lymphocytes/100 WBC (Bld) 16.7 % Normal . [facility] Comment on above: Performed By: #### C BC, BMP #### [facility] [address] [place] [phone] [facility] MCH (RBC) [Entitic mass] 30.2 pg Normal 24.7-34.3 [facility] Comment on above: Performed By: #### C BC, BMP #### [facility] [address] [place] [address] [place] MCV (RBC) [Entitic vol] 90.6 fL Normal 80-100 [facility] Comment on above: Performed By: #### C BC, BMP #### [facility] [address] Mean Corpuscular HGB Conc 33.3 g/dL Normal 32.0-35.0 [facility] Comment on above: Performed By: #### C BC, BMP #### [facility] [address] [place] [address] [place] Monocytes (Bld) [#/Vol] 0.4 10*3/uL Normal 0.0-0.8 [facility] Comment on above: Performed By: #### C BC, BMP #### [facility] [address] [place] [address] [place] Monocytes/100 WBC (Bld) 9.1 % Normal . [facility] Comment on above: Performed By: #### C BC, BMP #### [facility] [address] [place] [address] [place] Neutrophils (Bld) [#/Vol] 3.4 10*3/uL Normal 1.8-7.7 [facility] Comment on above: Performed By: #### C BC, BMP #### [facility] [address] [place] [address] [place] Neutrophils/100 WBC (Bld) 70.7 % Normal . [facility] Comment on above: Performed By: #### C BC, BMP #### [facility] [address] [place] [address] [place] Nucleated RBC/100 WBC (Bld) [Ratio] 0.0 % Normal 0-0.5 [facility] Comment on above: Performed By: #### C BC, BMP #### [facility] [address] [place] [address] [place] Platelet mean volume (Bld) [Entitic vol] 6.9 fL Normal 6.3-10.7 [facility] Comment on above: Performed By: #### C BC, BMP #### [facility] [address] [place] [address] [place] Platelets (Bld) [#/Vol] 423 10*3/uL Normal 150-450 [facility] Comment on above: Performed By: #### C BC, BMP #### [facility] [address] RBC (Bld) [#/Vol] 3.94 10*6/uL Normal 3.60-5.00 [facility] Comment on above: Performed By: #### C BC, BMP #### [facility] [address] WBC (Bld) [#/Vol] 4.8 10*3/uL Normal 4.5-11.0 [facility] Comment on above: Performed By: #### C BC, BMP #### [place] [address] [place] Dipstick and Microscopicon 0 11-21-2021 Appearance (U) Clear Normal Clear [facility] Comment on above: Order Comment: Name Collection Type:: Clean-Voided Midstream Performed By: #### C BC, BMP #### [place] [address] [place] Bacteria,Urine None Seen Normal None Seen [facility] Comment on above: Order Comment: Name Collection Type:: Clean-Voided Midstream Performed By: #### C BC, BMP #### [place] [address] [place] Bilirubin,Urine Negative Normal Negative [facility] Comment on above: Order Comment: Name Collection Type:: Clean-Voided Midstream Performed By: #### C BC, BMP #### [facility] [address] [place] [address] [place] Color (U) Yellow Normal Yellow [facility] Comment on above: Order Comment: Name Collection Type:: Clean-Voided Midstream Performed By: #### C BC, BMP #### [place] [address] [place] Glucose Ql (U) Normal Normal Normal [facility] Comment on above: Order Comment: Name Collection Type:: Clean-Voided Midstream Performed By: #### C BC, BMP #### [facility] [address] [place] [address] Hyaline Casts,Urine 0-8 Normal 0-8 [facility] Comment on above: Order Comment: Name Collection Type:: Clean-Voided Midstream Result Comment: PERF ORMED BY: [place] [address] PATHOLOGIST BOARDER HAND CLAIRE ANTHONY M.D. Performed By: #### C BC, BMP #### [address] Ketones Ql (U) Negative Normal Negative [facility] Comment on above: Order Comment: Name Collection Type:: Clean-Voided Midstream Performed By: #### C BC, BMP #### [address] Leukocyte esterase Test strip Ql (U) 1+ High Negative [facility] Comment on above: Order Comment: Name Collection Type:: Clean-Voided Midstream Performed By: #### C BC, BMP #### [place] [address] [place] Nitrite,Urine Negative Normal Negative [facility] Comment on above: Order Comment: Name Collection Type:: Clean-Voided Midstream Performed By: #### C BC, BMP #### [place] [address] [place] Occult Blood,Urine Negative Normal Negative [facility] Comment on above: Order Comment: Name Collection Type:: Clean-Voided Midstream Result Comment: PERF ORMED BY: [place] [address] PATHOLOGIST BOARDER HAND CLAIRE ANTHONY M.D. Performed By: #### C BC, BMP #### [facility] [address] [place] [address] [place] pH (U) 6.5 [pH] Normal 5.0-9.0 [facility] Comment on above: Order Comment: Name Collection Type:: Clean-Voided Midstream Performed By: #### C BC, BMP #### [facility] [address] [place] [address] Protein,Urine Negative Normal Negative [facility] Comment on above: Order Comment: Name Collection Type:: Clean-Voided Midstream Performed By: #### C BC, BMP #### [address] RBC,Urine 1-2 Normal 0-4 [facility] Comment on above: Order Comment: Name Collection Type:: Clean-Voided Midstream Performed By: #### C BC, BMP #### [address] Specificy Grabill,Urine 1.014 Normal 1.001-1.030 [facility] Comment on above: Order Comment: Name Collection Type:: Clean-Voided Midstream Performed By: #### C BC, BMP #### [address] Squamous Epithelial Cell,Urine None Seen Normal 0-2 [facility] Comment on above: Order Comment: Name Collection Type:: Clean-Voided Midstream Performed By: #### C BC, BMP #### [address] Urobilinogen,Urine Normal Normal Normal [facility] Comment on above: Order Comment: Name Collection Type:: Clean-Voided Midstream Performed By: #### C BC, BMP #### [facility] [address] [place] [address] [place] WBC,Urine 1-2 Normal 0-4 [facility] Comment on above: Order Comment: Name Collection Type:: Clean-Voided Midstream Performed By: #### C BC, BMP #### [address] Complete Blood Count Auto Di ffon 11-04-2021 Basophils (Bld) [#/Vol] 0.0 10*3/uL Normal 0.0-0.2 [facility] Comment on above: Result Comment: PERF ORMED BY: [place] [address] PATHOLOGIST BOARDER HAND CLAIRE ANTHONY M.D. Performed By: #### C BC, BMP #### [facility] [address] Basophils/100 WBC (Bld) 0.1 % Normal . [facility] Comment on above: Performed By: #### C BC, BMP #### [facility] [address] [place] [address] [place] Eosinophils (Bld) [#/Vol] 0.1 10*3/uL Normal 0.0-0.45 [facility] Comment on above: Performed By: #### C BC, BMP #### [facility] [address] Eosinophils/100 WBC (Bld) 1.3 % Normal . [facility] Comment on above: Performed By: #### C BC, BMP #### [facility] [address] Erythrocyte distribution width (RBC) [Ratio] 13.0 % Normal 11.9-15.3 [facility] Comment on above: Performed By: #### C BC, BMP #### [facility] [address] Hematocrit (Bld) [Volume fraction] 27.5 % Low 34.0-46.4 [facility] Comment on above: Performed By: #### C BC, BMP #### [facility] [address] [place] [address] [place] Hemoglobin (Bld) [Mass/Vol] 9.3 g/dL Low 11.8-15.4 [facility] Comment on above: Performed By: #### C BC, BMP #### [facility] [address] [place] [address] [place] Lymphocytes (Bld) [#/Vol] 0.5 10*3/uL Low 1.00-4.8 [facility] Comment on above: Performed By: #### C BC, BMP #### [facility] [address] [place] [address] [place] Lymphocytes/100 WBC (Bld) 6.3 % Normal . [facility] Comment on above: Performed By: #### C BC, BMP #### [facility] [address] MCH (RBC) [Entitic mass] 31.1 pg Normal 24.7-34.3 [facility] Comment on above: Performed By: #### C BC, BMP #### [facility] [address] MCV (RBC) [Entitic vol] 92.0 fL Normal 80-100 [facility] Comment on above: Performed By: #### C BC, BMP #### [facility] [address] Mean Corpuscular HGB Conc 33.8 g/dL Normal 32.0-35.0 [facility] Comment on above: Performed By: #### C BC, BMP #### [facility] [address] Monocytes (Bld) [#/Vol] 0.8 10*3/uL Normal 0.0-0.8 [facility] Comment on above: Performed By: #### C BC, BMP #### [facility] [address] [place] [address] [place] Monocytes/100 WBC (Bld) 10.8 % Normal . [facility] Comment on above: Performed By: #### C BC, BMP #### [facility] [address] [place] [address] [place] Neutrophils (Bld) [#/Vol] 5.9 10*3/uL Normal 1.8-7.7 [facility] Comment on above: Performed By: #### C BC, BMP #### [facility] [address] [place] [address] [place] Neutrophils/100 WBC (Bld) 81.5 % Normal . [facility] Comment on above: Performed By: #### C BC, BMP #### [facility] [address] Nucleated RBC/100 WBC (Bld) [Ratio] 0.0 % Normal 0-0.5 [facility] Comment on above: Performed By: #### C BC, BMP #### [facility] [address] Platelet mean volume (Bld) [Entitic vol] 7.4 fL Normal 6.3-10.7 [facility] Comment on above: Performed By: #### C BC, BMP #### [facility] [address] Platelets (Bld) [#/Vol] 135 10*3/uL Low 150-450 [facility] Comment on above: Performed By: #### C BC, BMP #### [facility] [address] RBC (Bld) [#/Vol] 2.99 10*6/uL Low 3.60-5.00 [facility] Comment on above: Performed By: #### C BC, BMP #### [facility] [address] WBC (Bld) [#/Vol] 7.3 10*3/uL Normal 4.5-11.0 [facility] Comment on above: Performed By: #### C BC, BMP #### [address] Electrolyteson 11-04-2021 Chloride [Moles/Vol] 106 mmol/L Normal 95-114 [facility] Comment on above: Performed By: #### C BC, BMP #### [address] CO2 [Moles/Vol] 25.2 mmol/L Normal 22.0-30.0 [facility] Comment on above: Result Comment: PERF ORMED BY: [place] [address] PATHOLOGIST BOARDER HAND CLAIRE ANTHONY M.D. Performed By: #### C BC, BMP #### [address] Potassium [Moles/Vol] 3.7 mmol/L Normal 3.5-5.1 [facility] Comment on above: Performed By: #### C BC, BMP #### [address] Sodium [Moles/Vol] 137 mmol/L Normal 136-146 [facility] Comment on above: Performed By: #### C BC, BMP #### [address] Complete Blood Count Auto Di ffon 11-03-2021 Basophils (Bld) [#/Vol] 0.0 10*3/uL Normal 0.0-0.2 [facility] Comment on above: Result Comment: PERF ORMED BY: [place] [address] PATHOLOGIST BOARDER HAND CLAIRE ANTHONY M.D. Performed By: #### C BC, BMP #### [address] Basophils/100 WBC (Bld) 0.1 % Normal . [facility] Comment on above: Performed By: #### C BC, BMP #### [address] Eosinophils (Bld) [#/Vol] 0.0 10*3/uL Normal 0.0-0.45 [facility] Comment on above: Performed By: #### C BC, BMP #### [address] Eosinophils/100 WBC (Bld) 0.3 % Normal . [facility] Comment on above: Performed By: #### C BC, BMP #### [address] Erythrocyte distribution width (RBC) [Ratio] 12.8 % Normal 11.9-15.3 [facility] Comment on above: Performed By: #### C BC, BMP #### [address] Hematocrit (Bld) [Volume fraction] 29.5 % Low 34.0-46.4 [facility] Comment on above: Performed By: #### C BC, BMP #### [address] Hemoglobin (Bld) [Mass/Vol] 9.9 g/dL Low 11.8-15.4 [facility] Comment on above: Performed By: #### C BC, BMP #### [address] Lymphocytes (Bld) [#/Vol] 0.5 10*3/uL Low 1.00-4.8 [facility] Comment on above: Performed By: #### C BC, BMP #### [address] Lymphocytes/100 WBC (Bld) 7.4 % Normal . [facility] Comment on above: Performed By: #### C BC, BMP #### [address] MCH (RBC) [Entitic mass] 30.9 pg Normal 24.7-34.3 [facility] Comment on above: Performed By: #### C BC, BMP #### [address] MCV (RBC) [Entitic vol] 92.1 fL Normal 80-100 [facility] Comment on above: Performed By: #### C BC, BMP #### [address] Mean Corpuscular HGB Conc 33.6 g/dL Normal 32.0-35.0 [facility] Comment on above: Performed By: #### C BC, BMP #### [place] [address] [place] Monocytes (Bld) [#/Vol] 0.7 10*3/uL Normal 0.0-0.8 [facility] Comment on above: Performed By: #### C BC, BMP #### [place] [address] [place] Monocytes/100 WBC (Bld) 10.0 % Normal . [facility] Comment on above: Performed By: #### C BC, BMP #### [place] [address] [place] Neutrophils (Bld) [#/Vol] 5.8 10*3/uL Normal 1.8-7.7 [facility] Comment on above: Performed By: #### C SANTANA, BMP #### [facility] [address] Neutrophils/100 WBC (Bld) 82.2 % Normal . [facility] Comment on above: Performed By: #### C SANTANA, BMP #### [facility] [address] Nucleated RBC/100 WBC (Bld) [Ratio] 0.0 % Normal 0-0.5 [facility] Comment on above: Performed By: #### C SANTANA, BMP #### [facility] [address] Platelet mean volume (Bld) [Entitic vol] 8.1 fL Normal 6.3-10.7 [facility] Comment on above: Performed By: #### C SANTANA, BMP #### [facility] [address] Platelets (Bld) [#/Vol] 153 10*3/uL Normal 150-450 [facility] Comment on above: Performed By: #### C SANTANA, BMP #### [address] RBC (Bld) [#/Vol] 3.21 10*6/uL Low 3.60-5.00 [facility] Comment on above: Performed By: #### C SANTANA, BMP #### [facility] [address] WBC (Bld) [#/Vol] 7.0 10*3/uL Normal 4.5-11.0 [facility] Comment on above: Performed By: #### C SANTANA, BMP #### [facility] [address] Electrolyteson 11-03-2021 Chloride [Moles/Vol] 104 mmol/L Normal 95-114 [facility] Comment on above: Performed By: #### C SANTANA, BMP #### [facility] [address] CO2 [Moles/Vol] 28.5 mmol/L Normal 22.0-30.0 [facility] Comment on above: Result Comment: PERF ORMED BY: [place] [address] PATHOLOGIST BOARDER HAND CLAIRE ANTHONY M.D. Performed By: #### C BC, BMP #### [facility] [address] [place] [address] Potassium [Moles/Vol] 4.2 mmol/L Normal 3.5-5.1 [facility] Comment on above: Performed By: #### Salvatore BC, BMP #### [address] Sodium [Moles/Vol] 139 mmol/L Normal 136-146 [facility] Comment on above: Performed By: #### Salvatore DILLON, BMP #### [address] 11-02-2021 L -- ---- Specimen: [id number] Received: 11/02/21 Status: GARRETT Campuzano Num: [id number] Spec Type: Surgical Subm Dr: Dylan Gatica Jr, DO Tissues: A Gross Only (BONE/TISSUE RT HIP) Procedures: Level 1 Gross ---- Patient Age/Sex Location Account Attending Physician ---- Isabel Waddell 61/F 4N [id number] Dylan Gatica Jr, DO ---- SPEC NUM: [id number] RECD: 11/02/21 STATUS: GARRETT MAGANAMely NUM: [id number] FRANCISCA: 11/02/21 [facility] DR: Dylan Gatica Jr, DO ENTERED: 11/02/21 [facility] DR: MARTIN TYPE: Surgical DEPT: [...] only. (SM/JS) Microscopic Description Gross examination only. [id number] ---- ---- Specimen: [id number] Received: 11/02/21 Status: GARRETT Campuzano Num: [id number] Spec Type: Surgical Subm Dr: Dylan Gatica Jr, DO Tissues: A Gross Only (BONE/TISSUE RT HIP) Procedures: Level 1 Gross ---- Patient: Isabel Waddell [id number] (Continued) ---- Signed (signature on file) Claire Anthony MD 11/02/21 1528 [facility] LeukoReduced RBCon LeukoReduced RBC READY Normal [facility] Type and Screenon 11-02-2021 ABO and Rh group Nom (Bld) Blood group O Rh(D) positive [facility] Comment on above: Order Comment: Trans fuse now? N XR low pelvis w/RT x-table h ipon 11-02-2021 XR low pelvis w/RT x-table hip [facility] [place] [address] XRay Report Signed Patient: Isabel Waddell MR#: [id number] : 1960 Acct:[id number] Age/Sex: 61 / F ADM Date: 11/02/21 Loc: Room: 7R7361-2 Type: [facility] Attending Dr: Dylan Gatica Jr, DO [...] Shiva Stafford M.D.11/02/2021 2:41 PM Dictation Location: [place] [address] Transcribed By: [facility] 11/02/21 144 Dictated By: Shiva Stafford II, MD 11/02/211439 Signed By: 11/02/211440 [facility] COVID-19 [facility] [place] [facility] [place] SARS-CoV-2 (COVID-19) RNA ANGELA+probe Ql (Unsp spec) Negative Normal Negative [facility] Comment on above: Order Comment: 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 This test has not been FDA [...] is terminated or revoked sooner. PERFORMED BY: [place] [address] PATHOLOGIST BOARDER HAND CLAIRE ANTHONY M.D. Performed By: #### C BC, BMP #### [address] Basic Metabolic Panelon 11-2 Calcium [Mass/Vol] 9.3 mg/dL Normal 8.2-10.2 [facility] Comment on above: Result Comment: PERF ORMED BY: [place] [address] PATHOLOGIST BOARDER HAND CLAIRE ANTHONY M.D. Performed By: #### C BC, BMP #### [place] [id number] [facility] Chloride [Moles/Vol] 104 mmol/L Normal 95-114 [facility] Comment on above: Performed By: #### C BC, BMP #### [place] [id number] [place] CO2 [Moles/Vol] 28.3 mmol/L Normal 22.0-30.0 [facility] Comment on above: Performed By: #### C BC, BMP #### [facility] [address] Creatinine [Mass/Vol] 0.61 mg/dL Normal 0.44-1.03 [facility] Comment on above: Performed By: #### C BC, BMP #### [address] Estimated GFR ( Damon > 60 [facility] Comment on above: Result Comment: GFR estimated reference range: According to KDOQI guidelines, <60 ml/min/1.73m2 is sufficient to diagnose a patient with chronic kidney disease. Performed By: #### C BC, BMP #### [address] Estimated GFR (Non- Am > 60 [facility] Comment on above: Performed By: #### C BC, BMP #### [address] Glucose [Mass/Vol] 100 mg/dL Normal 70-100 [facility] Comment on above: Result Comment: [place] om Glucose Reference Range is dependent on time and content of last meal. Glucose of more than 200 mg/dL in a nonstressed, ambulatory subject supports the diagnosis of Diabetes Mellitus. ADA recommended reference range Performed By: #### C BC, BMP #### [address] Potassium [Moles/Vol] 4.7 mmol/L Normal 3.5-5.1 [facility] Comment on above: Performed By: #### C BC, BMP #### [facility] [address] [place] [id number] [facility] Sodium [Moles/Vol] 140 mmol/L Normal 136-146 [facility] Comment on above: Performed By: #### C BC, BMP #### [address] Urea nitrogen [Mass/Vol] 17 mg/dL Normal 9-23 [facility] Comment on above: Performed By: #### C BC, BMP #### [facility] [address] [place] [address] Complete Blood Count Auto Di ffon 10-15-2021 Basophils (Bld) [#/Vol] 0.0 10*3/uL Normal 0.0-0.2 [facility] Comment on above: Result Comment: PERF ORMED BY: [place] [address] PATHOLOGIST BOARDER HAND CLAIRE ANTHONY M.D. Performed By: #### C BC, BMP #### [address] Basophils/100 WBC (Bld) 0.4 % Normal . [facility] Comment on above: Performed By: #### C BC, BMP #### [address] Eosinophils (Bld) [#/Vol] 0.1 10*3/uL Normal 0.0-0.45 [facility] Comment on above: Performed By: #### C BC, BMP #### [address] Eosinophils/100 WBC (Bld) 2.1 % Normal . [facility] Comment on above: Performed By: #### C BC, BMP #### [address] Erythrocyte distribution width (RBC) [Ratio] 13.0 % Normal 11.9-15.3 [facility] Comment on above: Performed By: #### C BC, BMP #### [address] Hematocrit (Bld) [Volume fraction] 36.8 % Normal 34.0-46.4 [facility] Comment on above: Performed By: #### C BC, BMP #### [address] Hemoglobin (Bld) [Mass/Vol] 12.4 g/dL Normal 11.8-15.4 [facility] Comment on above: Performed By: #### C BC, BMP #### [facility] [address] [place] [address] [place] Lymphocytes (Bld) [#/Vol] 0.5 10*3/uL Low 1.00-4.8 [facility] Comment on above: Performed By: #### C BC, BMP #### [facility] [address] Lymphocytes/100 WBC (Bld) 18.8 % Normal . [facility] Comment on above: Performed By: #### C BC, BMP #### [facility] [address] MCH (RBC) [Entitic mass] 31.3 pg Normal 24.7-34.3 [facility] Comment on above: Performed By: #### C BC, BMP #### [address] MCV (RBC) [Entitic vol] 92.8 fL Normal 80-100 [facility] Comment on above: Performed By: #### C BC, BMP #### [address] Mean Corpuscular HGB Conc 33.7 g/dL Normal 32.0-35.0 [facility] Comment on above: Performed By: #### C BC, BMP #### [place] [address] [place] Monocytes (Bld) [#/Vol] 0.3 10*3/uL Normal 0.0-0.8 [facility] Comment on above: Performed By: #### C BC, BMP #### [place] [address] [place] Monocytes/100 WBC (Bld) 10.8 % Normal . [facility] Comment on above: Performed By: #### C BC, BMP #### [address] Neutrophils (Bld) [#/Vol] 1.9 10*3/uL Normal 1.8-7.7 [facility] Comment on above: Performed By: #### C BC, BMP #### [facility] [address] Neutrophils/100 WBC (Bld) 67.9 % Normal . [facility] Comment on above: Performed By: #### C BC, BMP #### [facility] [address] [place] [address] [place] Nucleated RBC/100 WBC (Bld) [Ratio] 0.1 % Normal 0-0.5 [facility] Comment on above: Performed By: #### C BC, BMP #### [address] Platelet mean volume (Bld) [Entitic vol] 7.4 fL Normal 6.3-10.7 [facility] Comment on above: Performed By: #### C BC, BMP #### [address] Platelets (Bld) [#/Vol] 198 10*3/uL Normal 150-450 [facility] Comment on above: Performed By: #### C BC, BMP #### [place] [address] [place] RBC (Bld) [#/Vol] 3.97 10*6/uL Normal 3.60-5.00 [facility] Comment on above: Performed By: #### C BC, BMP #### [place] [address] [place] WBC (Bld) [#/Vol] 2.8 10*3/uL Low 4.5-11.0 [facility] Comment on above: Performed By: #### C BC, BMP #### [place] [address] [place] Dipstick and Microscopicon 1 12-15-2020 Appearance (U) Turbid Critically abnormal Clear [facility] Comment on above: Order Comment: Name Collection Type:: Clean-Voided Midstream Performed By: #### A DDONUAPLUS #### [place] [address] [place] Bacteria,Urine None Seen Normal None Seen [facility] Comment on above: Order Comment: Name Collection Type:: Clean-Voided Midstream Performed By: #### A DDONUAPLUS #### [facility] [address] [place] [address] [place] Bilirubin,Urine Negative Normal Negative [facility] Comment on above: Order Comment: Name Collection Type:: Clean-Voided Midstream Performed By: #### A DDONUAPLUS #### [facility] [address] [place] [address] [place] Color (U) Yellow Normal Yellow [facility] Comment on above: Order Comment: Name Collection Type:: Clean-Voided Midstream Performed By: #### A DDONUAPLUS #### [facility] [address] [place] [address] Glucose Ql (U) Normal Normal Normal [facility] Comment on above: Order Comment: Name Collection Type:: Clean-Voided Midstream Performed By: #### A DDONUAPLUS #### [place] [address] [place] Hyaline Casts,Urine None Seen Normal 0-8 [facility] Comment on above: Order Comment: Name Collection Type:: Clean-Voided Midstream Result Comment: PERF ORMED BY: [place] [address] PATHOLOGIST BOARDER HAND CLAIRE ANTHONY M.D. Performed By: #### A DDONUAPLUS #### [facility] [address] [place] [address] Ketones Ql (U) Negative Normal Negative [facility] Comment on above: Order Comment: Name Collection Type:: Clean-Voided Midstream Performed By: #### A DDONUAPLUS #### [facility] [address] [place] [address] [place] Leukocyte esterase Test strip Ql (U) 1+ High Negative [facility] Comment on above: Order Comment: Name Collection Type:: Clean-Voided Midstream Performed By: #### A DDONUAPLUS #### [facility] [address] [place] [address] [place] Nitrite,Urine Negative Normal Negative [facility] Comment on above: Order Comment: Name Collection Type:: Clean-Voided Midstream Performed By: #### A DDONUAPLUS #### [address] Occult Blood,Urine Negative Normal Negative [facility] Comment on above: Order Comment: Name Collection Type:: Clean-Voided Midstream Result Comment: PERF ORMED BY: [place] [address] PATHOLOGIST BOARDER HAND CLAIRE ANTHONY M.D. Performed By: #### A DDONUAPLUS #### [address] pH (U) 7.5 [pH] Normal 5.0-9.0 [facility] Comment on above: Order Comment: Name Collection Type:: Clean-Voided Midstream Performed By: #### A DDONUAPLUS #### [place] [address] [place] Protein,Urine Negative Normal Negative [facility] Comment on above: Order Comment: Name Collection Type:: Clean-Voided Midstream Performed By: #### A DDONUAPLUS #### [address] RBC,Urine 1-2 Normal 0-4 [facility] Comment on above: Order Comment: Name Collection Type:: Clean-Voided Midstream Performed By: #### A DDONUAPLUS #### [place] [address] [place] Specificy Grabill,Urine 1.017 Normal 1.001-1.030 [facility] Comment on above: Order Comment: Name Collection Type:: Clean-Voided Midstream Performed By: #### A DDONUAPLUS #### [place] [address] [place] Squamous Epithelial Cell,Urine None Seen Normal 0-2 [facility] Comment on above: Order Comment: Name Collection Type:: Clean-Voided Midstream Performed By: #### A DDONUAPLUS #### [address] Urobilinogen,Urine Normal Normal Normal [facility] Comment on above: Order Comment: Name Collection Type:: Clean-Voided Midstream Performed By: #### A DDONUAPLUS #### [facility] [address] [place] [address] WBC,Urine 3-4 Normal 0-4 [facility] Comment on above: Order Comment: Name Collection Type:: Clean-Voided Midstream Performed By: #### A DDONUAPLUS #### [facility] [address] [place] [address] PST Type and Screenon 2020 ABO and Rh group Nom (Bld) Blood group O Rh(D) positive Normal [facility] Comment on above: Order Comment: Date of Surgery: [id number] # of PRBC units on hold?: 2 Result Comment: PERF ORMED BY: [place] [address] PATHOLOGIST BOARDER HAND CLAIRE ANTHONY M.D. XR hip RT min 2V(w/wo pelvis )*on 10-15-2021 XR hip RT min 2V(w/wo pelvis)* [facility] [place] [address] [place] [address] XRay Report Signed Patient: Isabel Waddell MR#: [id number] : 1960 Acct:[id number] Age/Sex: 61 / F ADM Date: 10/15/21 Loc: Room: Type: [facility] Attending Dr: Dylan Gatica Jr, DO [...] Yusef Fernandez M.D.10/15/2021 2:21 PM Dictation Location: [facility] Transcribed By: [facility] 10/15/211420 Dictated By: Yusef Fernandez DO 10/15/211419 Signed By: 10/15/211420 [facility] XR tibia/fibula BIon 021 XR tibia/fibula BI [facility] [place] [address] XRay Report Signed Patient: Isabel Waddell MR#: [id number] : 1960 Acct:[id number] Age/Sex: 61 / F ADM Date: 08/22/21 Loc: ICXD Room: Type: [facility] Attending Dr: Dylan Gatica Jr, DO Ordering Provider: Dylan Gatica Jr, DO Date of Service: 08/22/21 XR/XR femur BI: PST ([id number]) XR/XR tibia/fibula BI: PST Copies to: Dylan [...] Mckayla Rai M.D.08/22/2021 3:17 PM Dictation Location: [facility] Transcribed By: JULIO 08/22/21 151 Dictated By: Mckayla Rai MD 08/22/21 151 Signed By: 08/22/211516 [facility] Basic Metabolic Panelon 10-0 Calcium [Mass/Vol] 9.1 mg/dL Normal 8.2-10.2 [facility] Comment on above: Result Comment: PERF ORMED BY: [place] [address] PATHOLOGIST BOARDER HAND CLAIRE ANTHONY M.D. Performed By: #### C BC, BMP #### [facility] [address] [place] [address] Chloride [Moles/Vol] 102 mmol/L Normal 95-114 [facility] Comment on above: Performed By: #### C BC, BMP #### [address] CO2 [Moles/Vol] 27.8 mmol/L Normal 22.0-30.0 [facility] Comment on above: Performed By: #### C BC, BMP #### [address] Creatinine [Mass/Vol] 0.63 mg/dL Normal 0.44-1.03 [facility] Comment on above: Performed By: #### C BC, BMP #### [address] Estimated GFR ( Damon > 60 [facility] Comment on above: Result Comment: GFR estimated reference range: According to KDOQI guidelines, <60 ml/min/1.73m2 is sufficient to diagnose a patient with chronic kidney disease. Performed By: #### C BC, BMP #### [place] [address] [place] Estimated GFR (Non- Am > 60 [facility] Comment on above: Performed By: #### C BC, BMP #### [place] [address] [place] Glucose [Mass/Vol] 101 mg/dL High 70-100 [facility] Comment on above: Result Comment: [place] Glucose Reference Range is dependent on time and content of last meal. Glucose of more than 200 mg/dL in a nonstressed, ambulatory subject supports the diagnosis of Diabetes Mellitus. ADA recommended reference range Performed By: #### C BC, BMP #### [address] Potassium [Moles/Vol] 4.2 mmol/L Normal 3.5-5.1 [facility] Comment on above: Performed By: #### C BC, BMP #### [address] Sodium [Moles/Vol] 138 mmol/L Normal 136-146 [facility] Comment on above: Performed By: #### C BC, BMP #### [address] Urea nitrogen [Mass/Vol] 18 mg/dL Normal 9-23 [facility] Comment on above: Performed By: #### C BC, BMP #### [address] Complete Blood Count Auto Di ffon 08-20-2021 Basophils (Bld) [#/Vol] 0.0 10*3/uL Normal 0.0-0.2 [facility] Comment on above: Result Comment: PERF ORMED BY: [place] [address] PATHOLOGIST BOARDER HAND CLAIRE ANTHONY M.D. Performed By: #### C BC, BMP #### [place] [address] [place] Basophils/100 WBC (Bld) 0.1 % Normal . [facility] Comment on above: Performed By: #### C BC, BMP #### [place] [address] [place] Eosinophils (Bld) [#/Vol] 0.1 10*3/uL Normal 0.0-0.45 [facility] Comment on above: Performed By: #### C BC, BMP #### [place] [address] [place] Eosinophils/100 WBC (Bld) 2.5 % Normal . [facility] Comment on above: Performed By: #### C BC, BMP #### [address] Erythrocyte distribution width (RBC) [Ratio] 13.6 % Normal 11.9-15.3 [facility] Comment on above: Performed By: #### C BC, BMP #### [address] Hematocrit (Bld) [Volume fraction] 34.5 % Normal 34.0-46.4 [facility] Comment on above: Performed By: #### C BC, BMP #### [address] Hemoglobin (Bld) [Mass/Vol] 11.9 g/dL Normal 11.8-15.4 [facility] Comment on above: Performed By: #### C BC, BMP #### [address] Lymphocytes (Bld) [#/Vol] 0.6 10*3/uL Low 1.00-4.8 [facility] Comment on above: Performed By: #### C BC, BMP #### [address] Lymphocytes/100 WBC (Bld) 15.9 % Normal . [facility] Comment on above: Performed By: #### C BC, BMP #### [address] MCH (RBC) [Entitic mass] 31.3 pg Normal 24.7-34.3 [facility] Comment on above: Performed By: #### C BC, BMP #### [address] MCV (RBC) [Entitic vol] 90.5 fL Normal 80-100 [facility] Comment on above: Performed By: #### C BC, BMP #### [address] Mean Corpuscular HGB Conc 34.6 g/dL Normal 32.0-35.0 [facility] Comment on above: Performed By: #### C BC, BMP #### [address] [place] [address] [place] Monocytes (Bld) [#/Vol] 0.5 10*3/uL Normal 0.0-0.8 [facility] Comment on above: Performed By: #### C BC, BMP #### [facility] [address] [place] [address] [place] Monocytes/100 WBC (Bld) 13.2 % Normal . [facility] Comment on above: Performed By: #### C BC, BMP #### [facility] [address] [place] [address] [place] Neutrophils (Bld) [#/Vol] 2.7 10*3/uL Normal 1.8-7.7 [facility] Comment on above: Performed By: #### C SANTANA, BMP #### [facility] [address] [place] [address] [place] Neutrophils/100 WBC (Bld) 68.3 % Normal . [facility] Comment on above: Performed By: #### C SANTANA, BMP #### [facility] [address] [place] [address] [place] Nucleated RBC/100 WBC (Bld) [Ratio] 0.1 % Normal 0-0.5 [facility] Comment on above: Performed By: #### C SANTANA, BMP #### [place] [address] [place] Platelet mean volume (Bld) [Entitic vol] 7.8 fL Normal 6.3-10.7 [facility] Comment on above: Performed By: #### C BC, BMP #### [facility] [address] [place] [address] [place] Platelets (Bld) [#/Vol] 182 10*3/uL Normal 150-450 [facility] Comment on above: Performed By: #### C BC, BMP #### [facility] [address] [place] [address] [place] RBC (Bld) [#/Vol] 3.81 10*6/uL Normal 3.60-5.00 [facility] Comment on above: Performed By: #### C BC, BMP #### [facility] [address] WBC (Bld) [#/Vol] 4.0 10*3/uL Low 4.5-11.0 [facility] Comment on above: Performed By: #### C BC, BMP #### [facility] [address] [place] [address] [place] Dipstick and Microscopicon 1 Appearance (U) Turbid Critically abnormal Clear [facility] Comment on above: Order Comment: Comme nt urine C S if indicated by UA Name Collection Type:: Clean-Voided Midstream Performed By: #### A DDONUAPLUS #### [facility] [address] [place] [address] Bacteria,Urine None Seen Normal None Seen [facility] Comment on above: Order Comment: Comme nt urine C S if indicated by UA Name Collection Type:: Clean-Voided Midstream Performed By: #### A DDONUAPLUS #### [facility] [address] [place] [address] [place] Bilirubin,Urine Negative Normal Negative [facility] Comment on above: Order Comment: Comme nt urine C S if indicated by UA Name Collection Type:: Clean-Voided Midstream Performed By: #### A DDONUAPLUS #### [facility] [address] [place] [address] Color (U) Yellow Normal Yellow [facility] Comment on above: Order Comment: Comme nt urine C S if indicated by UA Name Collection Type:: Clean-Voided Midstream Performed By: #### A DDONUAPLUS #### [facility] [address] [place] [address] [place] Glucose Ql (U) Normal Normal Normal [facility] Comment on above: Order Comment: Comme nt urine C S if indicated by UA Name Collection Type:: Clean-Voided Midstream Performed By: #### A DDONUAPLUS #### [facility] [address] [place] [address] [place] Hyaline Casts,Urine 0-8 Normal 0-8 [facility] Comment on above: Order Comment: Comme nt urine C S if indicated by UA Name Collection Type:: Clean-Voided Midstream Result Comment: PERF ORMED BY: [place] [address] PATHOLOGIST BOARDER HAND CLAIRE ANTHONY M.D. Performed By: #### A DDONUAPLUS #### [facility] [address] [place] [address] Ketones Ql (U) Negative Normal Negative [facility] Comment on above: Order Comment: Comme nt urine C S if indicated by UA Name Collection Type:: Clean-Voided Midstream Performed By: #### A DDONUAPLUS #### [address] Leukocyte esterase Test strip Ql (U) 3+ High Negative [facility] Comment on above: Order Comment: Comme nt urine C S if indicated by UA Name Collection Type:: Clean-Voided Midstream Performed By: #### A DDONUAPLUS #### [facility] [address] [place] [address] Nitrite,Urine Negative Normal Negative [facility] Comment on above: Order Comment: Comme nt urine C S if indicated by UA Name Collection Type:: Clean-Voided Midstream Performed By: #### A DDONUAPLUS #### [address] Occult Blood,Urine Negative Normal Negative [facility] Comment on above: Order Comment: Comme nt urine C S if indicated by UA Name Collection Type:: Clean-Voided Midstream Result Comment: PERF ORMED BY: [place] [address] PATHOLOGIST BOARDER HAND CLAIRE ANTHONY M.D. Performed By: #### A DDONUAPLUS #### [facility] [address] [place] [address] pH (U) 8.5 [pH] Normal 5.0-9.0 [facility] Comment on above: Order Comment: Comme nt urine C S if indicated by UA Name Collection Type:: Clean-Voided Midstream Performed By: #### A DDONUAPLUS #### [facility] [address] [place] [address] Protein,Urine Negative Normal Negative [facility] Comment on above: Order Comment: Comme nt urine C S if indicated by UA Name Collection Type:: Clean-Voided Midstream Performed By: #### A DDONUAPLUS #### [address] RBC,Urine 3-4 Normal 0-4 [facility] Comment on above: Order Comment: Comme nt urine C S if indicated by UA Name Collection Type:: Clean-Voided Midstream Performed By: #### A DDONUAPLUS #### [address] Specificy Grabill,Urine 1.016 Normal 1.001-1.030 [facility] Comment on above: Order Comment: Comme nt urine C S if indicated by UA Name Collection Type:: Clean-Voided Midstream Performed By: #### A DDONUAPLUS #### [facility] [address] [place] [address] Squamous Epithelial Cell,Urine 0-1 Normal 0-2 [facility] Comment on above: Order Comment: Comme nt urine C S if indicated by UA Name Collection Type:: Clean-Voided Midstream Performed By: #### A DDONUAPLUS #### [facility] [address] [place] [address] Urobilinogen,Urine Normal Normal Normal [facility] Comment on above: Order Comment: Comme nt urine C S if indicated by UA Name Collection Type:: Clean-Voided Midstream Performed By: #### A DDONUAPLUS #### [facility] [address] [place] [address] [place] WBC,Urine 20-49 High 0-4 [facility] Comment on above: Order Comment: Comme nt urine C S if indicated by UA Name Collection Type:: Clean-Voided Midstream Performed By: #### A DDONUAPLUS #### [facility] [address] [place] [address] ECG 12 lead ECGon 08-20-2021 ECG [address] [facility] [address] [address] Electrocardiograph Report Signed Patient: Isabel Waddell MR#: [id number] : 1960 Acct:[id number] Age/Sex: 61 / F ADM Date: 08/20/21 Loc: PS Room: Type: [facility] Attending Dr: Dylan Gatica Jr, DO [...] When compared with ECG of 06-SEP-2020 08:27, IA interval has decreased T wave amplitude has increased in Inferior leads Confirmed by YUSEF GIRALDO DO ([id number]) on 08/20/2021 4:50:03 PM Referred By: LAURA Electronically Signed By:YUSEF GIRALDO DO Transcribed By: MUS Signed By Yusef Giraldo DO 08/20 1650 Normal [facility] PST Type and Screenon 2020 ABO and Rh group Nom (Bld) Blood group O Rh(D) positive Normal [facility] Comment on above: Order Comment: Date of Surgery: [id number] # of PRBC units on hold?: 2 Result Comment: PERF ORMED BY: [place] [id number] PATHOLOGIST BOARDER HAND CLAIRE ANTHONY M.D. Urine Cultureon 08-20-2021 Bacteria identified Cx Nom (U) Comment do C S if indicated by UA ORGANISM: Staphylococcus aureus (O:STAAUR) [place] Count 30,000 Aerobic MARELY Charge (PC45) --- [...] RESISTANT TO ALL B-LACTAM DRUGS. PERFORMED BY: [place] [address] PATHOLOGIST BOARDER HAND CLAIRE ANTHONY M.D. [facility] Comment on above: Performed By: #### C UU #### [address] Cult,Urineon 07-08-2021 Cult,Urine Specimen Description .URINE Special Requests NOT REPORTED Culture NO SIGNIFICANT GROWTH Report Status FINAL 07/08/[address] [facility] Comment on above: Performed By: #### U #### [facility] [place] [address] Working Second Hand: Rei Jules MD [facility] [address] [place] [address] Working Second Hand: Jacob Campos MD CBC Auto DifferentialOrdered By: Mayra Michel on 07-07-2021 [employer] # 0.[address] [facility] Work Phone: Absolute Immature Granulocyte NOT REPORTED [facility] Work Phone: Absolute Lymph # 0.40 Low [facility] Work Phone: Absolute Troup # 0.50 [employer] Work Phone: Basophils (Bld) [#/Vol] 0.00 10*3/uL [employer] Work Phone: Basophils/100 WBC (Bld) 1 % 0 - 2 % [employer] Phone: Differential Type YES [facility] Work Phone: Eosinophils/100 WBC (Bld) 14 % High 0 - 5 % [employer] Phone: Hematocrit (Bld) [Volume fraction] 40.1 % 36 - 46 % [employer] Phone: Hemoglobin.gastrointes tinal spec 1 Ql (Stl) 13.8 g/dL 12.0 - 16.0 g/dL [employer] Phone: Immature Granulocytes NOT REPORTED 0 % [employer] Work Phone: Interpretation and review of laboratory results Abnormal [employer] Phone: Lymphocytes/100 WBC (Bld) 8 % Low 15 - 40 % [employer] Phone: MCH (RBC) [Entitic mass] 30.7 pg 26 - 34 pg [employer] Phone: MCHC (RBC) [Mass/Vol] 34.5 g/dL 31 - 37 g/dL [employer] Work Phone: MCV (RBC) [Entitic vol] 89.1 fL 80 - 100 fL [employer] Phone: Monocytes/100 WBC (Bld) 10 % High 4 - 8 % [employer] Phone: NRBC Automated NOT REPORTED per 100 WBC [employer] [facility] Work Phone: Platelet distribution width (Bld) [Ratio] 13.0 % 12.1 - 15.2 % [employer] Phone: Platelet Estimate NOT REPORTED [employer] Phone: Platelet mean volume (Bld) [Entitic vol] NOT REPORTED 6.0 - 12.0 fL [employer] Phone: Platelets (Bld) [#/Vol] 157 10*3/uL [employer] Phone: RBC (Bld) [#/Vol] 4.50 10*6/uL 4.0 - 5.2 m/uL [employer] Phone: RBC (Bld) [#/Vol] NOT REPORTED [employer] Phone: Segmented neutrophils/100 WBC (Bld) 67 % 47 - 75 % [employer] Phone: Segs Absolute 3.40 [employer] Work Phone: WBC (Bld) [#/Vol] 5.1 10*3/uL [employer] Phone: WBC (Bld) [#/Vol] NOT REPORTED [employer] Phone: [employer] Phone: CBC with Diffon 07-07-2021 Abs. Basophil 0.00 k/uL Normal 0.0-0.2 [facility] Comment on above: Performed By: #### C DP, CP #### [facility] [address] [place] [address] Working Second Hand: Jacob Campos MD Abs.Neutrophil (Seg) 3.40 k/uL Normal 2.5-7.0 [facility] Comment on above: Performed By: #### C DP, CP #### [facility] [address] [place] [address] Working Second Hand: Jacob Campos MD Auto Diff Performed YES Normal [facility] Comment on above: Performed By: #### C DP, CP #### [facility] [address] [place], [place] [phone] Working Second Hand: Jacob Campos MD Basophils/100 WBC (Bld) 1 % Normal 0-2 [facility] Comment on above: Performed By: #### C DP, CP #### [facility] [address] [place], [place] [phone] Working Second Hand: Jacob Campos MD Eosinophils (Bld) [#/Vol] 0.70 10*3/uL High 0.0-0.4 [facility] Comment on above: Performed By: #### C DP, CP #### [facility] [address] [place], [place] 1898[address] Working Second Hand: Jacob Campos MD Eosinophils/100 WBC (Bld) 14 % High 0-5 [facility] Comment on above: Performed By: #### C DP, CP #### [facility] [address] [place], [place] [phone] Working Second Hand: Jacob Campos MD Erythrocyte distribution width (RBC) [Ratio] 13.0 % Normal 12.1-15.2 [facility] Comment on above: Performed By: #### C DP, CP #### [facility] [address] [place], [place] [phone] Working Second Hand: Jacob Campos MD Hematocrit (Bld) [Volume fraction] 40.1 % Normal 36-46 [facility] Comment on above: Performed By: #### C DP, CP #### [facility] [address] [place], [place] [phone] Working Second Hand: Jacob Campos MD Hemoglobin (Bld) [Mass/Vol] 13.8 g/dL Normal 12.0-16.0 [facility] Comment on above: Performed By: #### C DP, CP #### [facility] [address] [place], [place] [phone] Working Second Hand: Jacob Campos MD Lymphocytes (Bld) [#/Vol] 0.40 10*3/uL Low 1.0-4.8 [facility] Comment on above: Performed By: #### C DP, CP #### [facility] [address] [place], [place] [phone] Working Second Hand: Jacob Campos MD Lymphocytes/100 WBC (Bld) 8 % Low 15-40 [facility] Comment on above: Performed By: #### C DP, CP #### [facility] [address] [place], [place] [phone] Working Second Hand: Jacob Campos MD MCH (RBC) [Entitic mass] 30.7 pg Normal 26-34 [facility] Comment on above: Performed By: #### C DP, CP #### [facility] [address] [place] [address] Working Second Hand: Jacob Campos MD MCHC (RBC) [Mass/Vol] 34.5 g/dL Normal 31-37 [facility] Comment on above: Performed By: #### C DP, CP #### [facility] [address] [place] [address] Working Second Hand: Jacob Campos MD MCV (RBC) [Entitic vol] 89.1 fL Normal 80-100 [facility] Comment on above: Performed By: #### C DP, CP #### [facility] [address] [place] [address] Working Second Hand: Jacob Campos MD Monocytes (Bld) [#/Vol] 0.50 10*3/uL Normal 0.0-1.0 [facility] Comment on above: Performed By: #### C DP, CP #### [facility] [address] [place] [address] Working Second Hand: Jacob Campos MD Monocytes/100 WBC (Bld) 10 % High 4-8 [facility] Comment on above: Performed By: #### C DP, CP #### [facility] [address] [place] [address] Working Second Hand: Jacob Campos MD Neutrophil (Seg) 67 % Normal 47-75 [facility] Comment on above: Performed By: #### C DP, CP #### [facility] [address] [place] [address] Working Second Hand: Jacob Campos MD Platelets (Bld) [#/Vol] 157 10*3/uL Normal 140-450 [facility] Comment on above: Performed By: #### C DP, CP #### [facility] [address] [place] [address] Working Second Hand: Jacob Campos MD RBC (Bld) [#/Vol] 4.50 10*6/uL Normal 4.0-5.2 [facility] Comment on above: Performed By: #### C DP, CP #### [facility] [address] [place] [address] Working Second Hand: Jacob Campos MD WBC (Bld) [#/Vol] 5.1 10*3/uL Normal 3.5-11.0 [facility] Comment on above: Performed By: #### C DP, CP #### [facility] [address] [place] [address] Working Second Hand: Jacob Campos MD Abs.Imm.Granulocyte NOT REPORTED Normal 0.00-0.30 [facility] Comment on above: Performed By: #### C DP, CP #### [facility] [address] [place] [address] Working Second Hand: Jacob Campos MD Immature Granulocyte NOT REPORTED Normal 0 [facility] Comment on above: Performed By: #### C DP, CP #### [facility] [address] [place] [address] Working Second Hand: Jacob Campos MD MPV NOT REPORTED Normal 6.0-12.0 [facility] Comment on above: Performed By: #### C DP, CP #### [facility] [address] [place] [address] Working Second Hand: Jacob Campos MD NRBC Automated NOT REPORTED Normal [facility] Comment on above: Performed By: #### C DP, CP #### [facility] [address] [place] [address] Working Second Hand: Jacob Campos MD Platelet Estimate NOT REPORTED Normal [facility] Comment on above: Performed By: #### C DP, CP #### [facility] [address] [place], [place] [phone] Working Second Hand: Jacob Campos MD RBC morphology finding Nom (Bld) NOT REPORTED Normal [facility] Comment on above: Performed By: #### C DP, CP #### [facility] [address] [place] [address] Working Second Hand: Jacob Campos MD WBC Morphology NOT REPORTED Normal [facility] Comment on above: Performed By: #### C DP, CP #### [facility] [address] [place] [address] Working Second Hand: Jacob Campos MD Comp Metabolic Profon 2020 (cont.) Normal [facility] Comment on above: Result Comment: Aver age GFR for 60-69 years old: 85 mL/min/1.73sq m Chronic Kidney Disease: <60 mL/min/1.73sq m Kidney failure: <15 mL/min/1.73sq m eGFR calculated using average adult body mass. Additional eGFR calculator available at: http://www.Hitmeister.Groopt/multiple_crcl_2012.htm Performed By: #### C DP, CP #### [facility] [address] [place] [address] Working Second Hand: Jacob Campos MD Albumin [Mass/Vol] 3.9 g/dL Normal 3.5-5.2 [facility] Comment on above: Performed By: #### C DP, CP #### [facility] [address] [place] [address] Working Second Hand: Jacob Campos MD Alkaline Phos 94 U/L Normal 35-104 [facility] Comment on above: Performed By: #### C DP, CP #### [facility] [address] [place] [address] Working Second Hand: Jacob Campos MD ALT [Catalytic activity/Vol] 31 U/L Normal 5-33 [facility] Comment on above: Performed By: #### C DP, CP #### [facility] [address] [place] [address] Working Second Hand: Jacob Campos MD Anion gap [Moles/Vol] 10 mmol/L Normal 9-17 [facility] Comment on above: Performed By: #### C DP, CP #### [facility] [address] [place] [address] Working Second Hand: Jacob Campos MD AST [Catalytic activity/Vol] 28 U/L Normal <32 [facility] Comment on above: Performed By: #### C DP, CP #### [facility] [address] [place] [address] Working Second Hand: Jacob Campos MD Bilirubin [Mass/Vol] 0.46 mg/dL Normal 0.30-1.20 [facility] Comment on above: Performed By: #### C DP, CP #### [facility] [address] [place] [address] Working Second Hand: Jacob Campos MD BUN/CRE Ratio 27 High 9-20 [facility] Comment on above: Performed By: #### C DP, CP #### [facility] [address] [place], [place] [phone] Working Second Hand: Jacob Campos MD Calcium [Mass/Vol] 9.7 mg/dL Normal 8.6-10.4 [facility] Comment on above: Performed By: #### C DP, CP #### [facility] [address] [place], [place] [phone] Working Second Hand: Jacob Campos MD Chloride [Moles/Vol] 107 mmol/L Normal 98-107 [facility] Comment on above: Performed By: #### C DP, CP #### [facility] [address] [place], [place] [phone] Working Second Hand: Jacob Campos MD CO2 [Moles/Vol] 25 mmol/L Normal 20-31 [facility] Comment on above: Performed By: #### C DP, CP #### [facility] [address] [place], [place] [phone] Working Second Hand: Jacob Campos MD Creatinine [Mass/Vol] 0.60 mg/dL Normal 0.50-0.90 [facility] Comment on above: Performed By: #### C DP, CP #### [facility] [address] [place], [place] [phone] Working Second Hand: Jacob Campos MD GFR, Amer >60 Normal >60 [facility] Comment on above: Performed By: #### C DP, CP #### [facility] [address] [place], [place] [phone] Working Second Hand: Jacob Campos MD GFR,non Amer >60 Normal >60 [facility] Comment on above: Performed By: #### C DP, CP #### [facility] [address] [place], [place] [phone] Working Second Hand: Jacob Campos MD Glucose [Mass/Vol] 122 mg/dL High 70-99 [facility] Comment on above: Performed By: #### C DP, CP #### [facility] [address] [place] [address] Working Second Hand: Jacob Campos MD Potassium [Moles/Vol] 3.8 mmol/L Normal 3.7-5.3 [facility] Comment on above: Performed By: #### C DP, CP #### [facility] [address] [place], [place] [phone] Working Second Hand: Jacob Campos MD Protein [Mass/Vol] 6.9 g/dL Normal 6.4-8.3 [facility] Comment on above: Performed By: #### C DP, CP #### [facility] [address] [place] [address] Working Second Hand: Jacob Campos MD Sodium [Moles/Vol] 142 mmol/L Normal 135-144 [facility] Comment on above: Performed By: #### C DP, CP #### [facility] [address] [place], [place] 1905[address] Working Second Hand: Jacob Campos MD Urea nitrogen [Mass/Vol] 16 mg/dL Normal 8-23 [facility] Comment on above: Performed By: #### C DP, CP #### [facility] [address] [place] [address] Working Second Hand: Jacob Campos MD Albumin/Glob Ratio NOT REPORTED Normal 1.0-2.5 [facility] Comment on above: Performed By: #### C DP, CP #### [facility] [address] [place], [place] [phone] Working Second Hand: Jacob Campos MD Staging: NOT REPORTED Normal [facility] Comment on above: Performed By: #### C DP, CP #### [facility] [address] [place] [address] Working Second Hand: Jacob Campos MD Comprehensive Metabolic Pane lOrdered By: Mayra Michel on 07-07-2021 Albumin [Mass/Vol] 3.9 g/dL 3.5 - 5.2 g/dL [employer] Phone: Albumin/Globulin Ratio NOT REPORTED [employer] Phone: ALP (Bld) [Catalytic activity/Vol] 94 U/L 35 - 104 U/L [employer] Phone: ALT [Catalytic activity/Vol] 31 U/L 5 - 33 U/L [employer] Phone: Anion gap [Moles/Vol] 10 mmol/L 9 - 17 mmol/L [employer] Phone: AST [Catalytic activity/Vol] 28 U/L <32 [employer] Phone: Bilirubin [Mass/Vol] 0.46 mg/dL 0.30 - 1.20 mg/dL [employer] Phone: Calcium [Mass/Vol] 9.7 mg/dL 8.6 - 10. 4 mg/dL [employer] Phone: Chloride [Moles/Vol] 107 mmol/L 98 - 10 7 mmol/L [employer] Phone: CO2 [Moles/Vol] 25 mmol/L 20 - 31 mmol/L [employer] Phone: Creatinine [Mass/Vol] 0.6 mg/dL 0.50 - 0.90 mg/dL [employer] Phone: Free PSA/Total PSA [Mass fraction] 6.9 g/dL 6.4 - 8.3 g/dL [employer] Phone: GFR >60 >60 mL/min [employer] Phone: GFR Non- >60 >60 mL/min [employer] Phone: GFR/1.73 sq M.predicted MDRD (S/P/Bld) [Vol rate/Area] [employer] Phone: Comment on above: Average GFR for 60-6 9 years old: 85 mL/min/1.73sq m Chronic Kidney Disease: <60 mL/min/1.73sq m Kidney failure: <15 mL/min/1.73sq m eGFR calculated using average adult body mass. Additional eGFR calculator available at: http://www.Darkstrand/multiple_crcl_2012.htm GFR/1.73 sq M.predicted MDRD (S/P/Bld) [Vol rate/Area] NOT REPORTED [employer] Phone: Glucose [Mass/Vol] 122 mg/dL High 70 - 99 mg/dL [employer] Phone: Interpretation and review of laboratory results Abnormal [employer] Phone: Potassium [Moles/Vol] 3.8 mmol/L 3.7 - 5.3 mmol/L [employer] Phone: Sodium [Moles/Vol] 142 mmol/L 135 - 144 mmol/L [employer] Phone: Urea nitrogen (BldV) [Mass/Vol] 16 mg/dL 8 - 23 mg/dL [employer] Phone: Urea nitrogen/Creatinine (Bld) [Mass ratio] 27 High [employer] Phone: [employer] Phone: Microscopic UrinalysisOrdere d By: Mayra Michel on 07-07-2021 - [employer] Phone: Amorphous, UA NOT REPORTED None [employer] [facility] Work Phone: Bacteria, UA 2+ Abnormal None [employer] Phone: Casts UA NOT REPORTED /LPF [employer] Phone: Crystals, UA NOT REPORTED None /HPF [employer] [facility] Work Phone: Epithelial Cells UA 5 TO 10 /HPF [employer] Work Phone: Interpretation and review of laboratory results Abnormal [facility] [employer] Work Phone: Mucus, UA 1+ Abnormal None [facility] [employer] Work Phone: Other Observations UA NOT REPORTED NOT REQ. [facility] [employer] Work Phone: RBC, UA 5 TO 10 [facility] [employer] Work Phone: Renal Epithelial, UA NOT REPORTED 0 /HPF [facility] Work Phone: Trichomonas, UA NOT REPORTED None [facility] Work Phone: WBC, UA 2 TO 5 0 /HPF [facility] [employer] Work Phone: Yeast, UA NOT REPORTED None [facility] [employer] Work Phone: [facility] [employer] Work Phone: UrinalysisOrdered By: Olamide Michel on 07-07-2021 Bilirubin Urine Negative NEGATIVE [employer] [facility] Work Phone: Color, UA YELLOW YELLOW [facility] [employer] Work Phone: Glucose, Ur Negative NEGATIVE [facility] [employer] Work Phone: Interpretation and review of laboratory results Abnormal [facility] [employer] Work Phone: Ketones Ql (U) Negative NEGATIVE [facility] Work Phone: Leukocyte esterase Test strip Ql (U) 1+ Abnormal NEGATIVE [facility] [employer] Work Phone: Nitrite, Urine Negative NEGATIVE [facility] [employer] Work Phone: pH, UA 6.0 [facility] [employer] Work Phone: Protein, UA TRACE Abnormal NEGATIVE [facility] [employer] Work Phone: Specific Grabill, UA 1.020 [facility] [employer] Work Phone: Turbidity UA CLEAR CLEAR [facility] [employer] Work Phone: Urinalysis Comments [facility] [employer] Phone: Urine Hgb TRACE Abnormal NEGATIVE [facility] [employer] Phone: Urobilinogen, Urine Normal Normal [facility] [employer] Phone: [facility] [employer] Phone: Urinalysis, Routineon 2020 Bilirubin, SemiQt,Ur Negative Normal NEG [facility] Comment on above: Performed By: #### U MICAO, UA #### [facility] [address] [facility] [place] [address] Working Second Hand: Jacob Campos MD Blood, Urine TRACE Abnormal NEG [facility] Comment on above: Performed By: #### U MICAO, UA #### [facility] [address] [facility] [place] [phone] Working Second Hand: Jacob Campos MD Clarity (U) CLEAR Normal CLEAR [facility] Comment on above: Performed By: #### U MICAO, UA #### [facility] [address] [facility] [place] [phone] Working Second Hand: Jacob Campos MD Color (U) YELLOW Normal YEL [facility] Comment on above: Performed By: #### U MICAO, UA #### [facility] [address] [facility] [place] [address] Working Second Hand: Jacob Campos MD Comment Normal [facility] Comment on above: Performed By: #### U MICAO, UA #### [facility] [address] [facility] [place] [phone] Working Second Hand: Jacob Campos MD Glucose Ql (U) Negative Normal NEG [facility] Comment on above: Performed By: #### U MICAO, UA #### [facility] [address] [facility] [place] [address] Working Second Hand: Jacob Campos MD Ketones Ql (U) Negative Normal NEG [facility] Comment on above: Performed By: #### U MICAO, UA #### [facility] [address] [place] [address] Working Second Hand: Jacob Campos MD Leukocyte esterase Test strip Ql (U) 1+ Abnormal NEG [facility] Comment on above: Performed By: #### U MICAO, UA #### [facility] [address] [place] [address] Working Second Hand: Jacob Campos MD Nitrite,Ur Negative Normal NEG [facility] Comment on above: Performed By: #### U MICAO, UA #### [facility] [address] [place] [address] Working Second Hand: Jacob Campos MD PH,Ur 6.0 Normal 5.0-8.0 [facility] Comment on above: Performed By: #### U MICAO, UA #### [facility] [address] [place] [address] Working Second Hand: Jacob Campos MD Protein Ql (U) TRACE Abnormal NEG [facility] Comment on above: Performed By: #### U MICAO, UA #### [facility] [address] [place] [address] Working Second Hand: Jacob Campos MD Spec. Grabill,Ur 1.020 Normal 1.005-1.030 [facility] Comment on above: Performed By: #### U MICAO, UA #### [facility] [address] [place] [address] Working Second Hand: Jacob Campos MD Urobilinogen,Ur Normal Normal NORM [facility] Comment on above: Performed By: #### U MICAO, UA #### [facility] [address] [place] [address] Working Second Hand: Jacob Campos MD Urinalysis,Microon 1 ----- Normal [facility] Comment on above: Performed By: #### U RICH UA #### [facility] [address] [place], [place] [phone] Working Second Hand: Jacob Campos MD Bacteria 2+ Abnormal [facility] Comment on above: Performed By: #### U RICH UA #### [facility] [address] [place], [place] [phone] Working Second Hand: Jacob Campos MD Epithelial cells LM Ql (Urine sed) 5 TO 10 Normal [facility] Comment on above: Performed By: #### U RICH UA #### [facility] [address] [place], [place] [phone] Working Second Hand: Jacob Campos MD Mucus Strands 1+ Abnormal [facility] Comment on above: Performed By: #### U RICH, UA #### [facility] [address] [place], [place] [phone] Working Second Hand: Jacob Campos MD Urine RBC's 5 TO 10 Normal 0-2 [facility] Comment on above: Performed By: #### U RICH UA #### [facility] [address] [place], [place] [phone] Working Second Hand: Jacob Campos MD Urine WBC's 2 TO 5 Normal 0 [facility] Comment on above: Performed By: #### U RICH, UA #### [facility] [address] [place], [place] [phone] Working Second Hand: Jacob Campos MD Amorphous sediment LM Ql (Urine sed) NOT REPORTED Normal [facility] Comment on above: Performed By: #### U EULALIAO, UA #### [facility] [address] [place], [place] [phone] Working Second Hand: Jacob Campos MD Casts NOT REPORTED Normal [facility] Comment on above: Performed By: #### U RICH, UA #### [facility] [address] [place], [place] [phone] Working Second Hand: Jacob Campos MD Crystals LM Nom (Urine sed) NOT REPORTED Normal NONE [facility] Comment on above: Performed By: #### U MICAO, UA #### [facility] [address] [place], [place] [phone] Working Second Hand: Jacob Campos MD Epithelial, Renal NOT REPORTED Normal 0 [facility] Comment on above: Performed By: #### U MICAO, UA #### [facility] [address] [place], [place] [id number] Working Second Hand: Jacob Campos MD Other Observations NOT REPORTED Normal NREQ [facility] Comment on above: Performed By: #### U EULALIAO, UA #### [facility] [address] [place], [place] [address] Working Second Hand: Jacob Campos MD Trichomonas NOT REPORTED Normal NONE [facility] Comment on above: Performed By: #### U EULALIAO, UA #### [facility] [address] [place], [place] [id number] Working Second Hand: Jacob Campos MD Yeast NOT REPORTED Normal NONE [facility] Comment on above: Performed By: #### U EULALIAO, UA #### [facility] [address] [place], [place] [id number] Working Second Hand: Jacob Campos MD XR hand RT min 3V*on 021 XR hand RT min 3V* [facility] Main [address] [address] XRay Report Signed Patient: Isabel Waddell MR#: [id number] : 1960 Acct:[id number] Age/Sex: 60 / F ADM Date: 03/28/21 Loc: [facility] [place] Room: Type: [facility] CLI Attending Dr: Sona Hurst MD Ordering [...] Mckayla Rai M.D.03/28/2021 1:26 PM Dictation Location: [place] [address] Transcribed By: [facility] 03/28/21 1326 Dictated By: Mckayla Rai MD 03/28/21 1321 Signed By: 03/28/21 1326 [facility] BIOAVAILABLE TESTOSTERONE FE MALESusie 11-29-2019 Albumin [Mass/Vol] 4.3 g/dL Normal 3.6-5.1 [facility] [place] Comment on above: Result Comment: Age and Gender Specific Reference Interval Applied Interpretive Information: Total Testosterone Reference Interval (ng/dL) Premenopausal 9 - 55 Postmenopausal 5 - 32 Bioavailable Testosterone (ng/dL) Postmenopausal 1.5 - 9.4 Free Testosterone Reference Interval (pg/mL) Postmenopausal 0.6 - 3.8 This test was developed and its performance characteristics determined by [facility] ([facility]). It has not been cleared or approved by the U.S. Food and Drug Administration (FDA). The FDA has determined that such clearance or approval is not necessary. This test is used for clinical purposes and should not be regarded as investigational or for research. [facility] is qualified to perform high complexity testing under the Clinical Laboratory Improvement Amendments (CLIA). Test performed at [facility] [address] [place] [address], [address], [address] [place] [address] Corporate Development Manager: Adi Barksdale M.D. CLIA Number [id number] CAP Accreditation Number [id number] ------- [facility] [address] [place] [address] CLIA No. [id number] CAP Accreditation No. [id number] Corporate Development Manager: Isiah Burr M.D. Performed By: #### 1 000, 4500, 4510, 4520, 45305, 5000, 13359, 97434 #### [facility] Unless Otherwise Noted [address] [place] [address] / COLA #4724/CLIA # [id number] SEX HORM BINDING GLOBULIN 56.3 nmol/L Normal 17.3-125.0 [facility] and [facility] Comment on above: Performed By: #### 1 000, 4500, 4510, 4520, 17181, 5000, 61772, 77191 #### [facility] Unless Otherwise Noted [address] [place] [address] / COLA #4724/CLIA # [id number] TESTOSTERONE BIO FEMALE 2.9 ng/dL Normal 1.5-9.4 [facility] Comment on above: Performed By: #### 1 000, 4500, 4510, 4520, 10010, 5000, 88898, 99856 #### [facility] Unless Otherwise Noted [address] [place] [address] / COLA #4724/CLIA # [id number] TESTOSTERONE FREE FEMALE 1.3 pg/mL Normal 0.6-3.8 [facility] [place] Comment on above: Performed By: #### 1 000, 4500, 4510, 4520, 33792, 5000, 81403, 77070 #### [facility] [place], [facility] Unless Otherwise Noted [address] [address] / COLA #4724/CLIA # [id number] TESTOSTERONE, ULTRASENSITIVE 10 ng/dL Normal 9-55 [facility] [place] Comment on above: Performed By: #### 1 000, 4500, 4510, 4520, 64977, 5000, 09652, 22971 #### [facility] [place], [facility] Unless Otherwise Noted [address] [address] / COLA #4724/CLIA # [id number] ADRENOCORTICOTROPIC HORMon 0 11-27-2019 ADRENOCORTICOTROPIC HORM 18.1 PG/ML Normal 7.2-63.3 [facility] [place] Comment on above: Result Comment: Reference range established for normal adult patients, morning blood draw (7-10 AM). Certain synthetic ACTH fragments may interfere with this assay. Test performed at [facility] [address] [place] [address] CLIA Number [id number] [facility] Accreditation Number [id number] ------- Performed By: #### 1 000, 4500, 4510, 4520, 66546, 5000, 99819, 09997 #### [facility] [place], [facility] Unless Otherwise Noted [address] [address] / COLA #4724/CLIA # [id number] IGF-1on 11-27-2019 IGF-1 151 NG/ML Normal 43-187 [facility] Comment on above: Result Comment: Test performed at [facility] [address] [facility] [place] [address] CLIA Number [id number] [facility] Accreditation Number [id number] ------- Performed By: #### 1 000, 4500, 4510, 4520, 19531, 5000, 57080, 51925 #### [facility] Unless Otherwise Noted [address] [place] [address] / COLA #4724/CLIA # [id number] CORTISOL Delonte 11-26-2019 CORTISOL AM 8.6 UG/DL Normal 4.5-22.7 [facility] [place] Comment on above: Performed By: #### 1 000, 4500, 4510, 4520, 18175, 5000, 62646, 66035 #### [facility] Unless Otherwise Noted [address] [place] [address] / COLA #4724/CLIA # [id number] FSHon 11-26-2019 FSH 26.30 mlU/mL Normal [facility] [place] Comment on above: Result Comment: REFE RENCE RANGES FOR FEMALES: OVULATING FEMALE: FOLLICULAR PHASE 1.98-11.6 PEAK 5.14-23.4 LUTEAL PHASE 1.38-9.58 POSTMENOPAUSAL FEMALE 21.5-131 Performed By: #### 4 530, 7690, 4550, 4574 #### [facility] Unless Otherwise Noted [address] [place] [address] / COLA #4724/CLIA # [id number] LHon 11-26-2019 LH 23.00 mIU/ml Normal [facility] Comment on above: Result Comment: REFE RENCE RANGES FOR FEMALE: OVULATING FEMALE: FOLLICULAR PHASE 2.58-12.1 PEAK 27.3-96.9 LUTEAL PHASE 0.83-15.5 POSTMENOPAUSAL FEMALE 13.1-86.5 Performed By: #### 4 530, 4540, 4550, 4577 #### [facility] Unless Otherwise Noted [address] [address] / COLA #4724/CLIA # [id number] PROLACTINon 11-26-2019 PROLACTIN 17.3 ng/ml Normal 2.1-47.6 [facility] Comment on above: Result Comment: IVELISSE ENOPAUSAL FEMALE 2.1 - 47.6 POSTMENOPAUSAL FEMALE 0.0 - 41.4 Performed By: #### 1 000, 4500, 4510, 4520, 25159, 5000, 49170, 48195 #### [facility] Unless Otherwise Noted [address] [address] / COLA #4724/CLIA # [id number] CBC W/AUTO DIFFon 11-25-2019 ABS BASOPHILS 0.0 X10E9/L Normal 0-0.9 [facility] Comment on above: Result Comment: Perf ormed at [facility] [address] [facility] [address] Performed By: #### 1 000, 4500, 4510, 4520, 14669, 5000, 37490, 82065 #### [facility] Unless Otherwise Noted [address] [address] / COLA #4724/CLIA # [id number] ABS NEUTROPHILS 2.6 X10E9/L Normal 1.5-6.6 [facility] Comment on above: Performed By: #### 1 000, 4500, 4510, 4520, 71209, 5000, 67936, 17573 #### [facility] Unless Otherwise Noted [address] [place] [address] / COLA #4724/CLIA # [id number] Basophils/100 WBC (Bld) 0.6 % Normal [facility] [place] Comment on above: Performed By: #### 1 000, 4500, 4510, 4520, 75158, 5000, 31146, 97735 #### [facility] Unless Otherwise Noted [address] [address] / COLA #4724/CLIA # [id number] Eosinophils (Bld) [#/Vol] 0.2 10*3/uL Normal 0.0-0.4 [facility] Comment on above: Performed By: #### 1 000, 4500, 4510, 4520, 45373, 5000, 56082, 41351 #### [facility] Unless Otherwise Noted [address] [place] [address] / COLA #4724/CLIA # [id number] Eosinophils/100 WBC (Bld) 3.1 % Normal [facility] [place] Comment on above: Performed By: #### 1 000, 4500, 4510, 4520, 26190, 5000, 48338, 88840 #### [facility] Unless Otherwise Noted [address] [address] / COLA #4724/CLIA # [id number] Erythrocyte distribution width (RBC) [Ratio] 13.3 % Normal 11.5-14.7 [facility] Comment on above: Performed By: #### 1 000, 4500, 4510, 4520, 09203, 5000, 31240, 35260 #### [facility] Unless Otherwise Noted [address] [address] / COLA #4724/CLIA # [id number] Hematocrit (Bld) [Volume fraction] 39.4 % Normal 35-47 [facility] [place] Comment on above: Performed By: #### 1 000, 4500, 4510, 4520, 09614, 5000, 82963, 86488 #### [facility] Unless Otherwise Noted [address] [address] / COLA #4724/CLIA # [id number] Hemoglobin (Bld) [Mass/Vol] 13.3 g/dL Normal 11.7-16.0 [facility] [place] Comment on above: Performed By: #### 1 000, 4500, 4510, 4520, 68360, 5000, 13665, 65660 #### [facility] Unless Otherwise Noted [address] [address] / COLA #4724/CLIA # [id number] Lymphocytes (Bld) [#/Vol] 1.8 10*3/uL Normal 1.0-3.5 [facility] [place] Comment on above: Performed By: #### 1 000, 4500, 4510, 4520, 09654, 5000, 31541, 53394 #### [facility], [facility] Unless Otherwise Noted [address] [address] / COLA #4724/CLIA # [id number] Lymphocytes/100 WBC (Bld) 35.0 % Normal [facility] [place] Comment on above: Performed By: #### 1 000, 4500, 4510, 4520, 23953, 5000, 79971, 36627 #### [facility]ocrine and [facility] Unless Otherwise Noted [address] [address] / COLA #4724/CLIA # [id number] MCH (RBC) [Entitic mass] 31.2 pg Normal 26-33.5 [facility] [place] Comment on above: Performed By: #### 1 000, 4500, 4510, 4520, 37435, 5000, 37441, 71329 #### [facility] [place], [facility] Unless Otherwise Noted [address] / COLA #4724/CLIA # [id number] MCHC (RBC) [Mass/Vol] 33.7 g/dL Normal 32-36 End [facility] Comment on above: Performed By: #### 1 000, 4500, 4510, 4520, 49790, 5000, 13050, 80803 #### [facility] [place], [facility] Unless Otherwise Noted [address] [place] [address] / COLA #4724/CLIA # [id number] MCV (RBC) [Entitic vol] 93 fL Normal 81-100 [facility] [place] Comment on above: Performed By: #### 1 000, 4500, 4510, 4520, 95953, 5000, 48740, 88261 #### [facility] [place], Inc[facility] Unless Otherwise Noted [address] / COLA #4724/CLIA # [id number] Monocytes (Bld) [#/Vol] 0.5 10*3/uL Normal 0-0.9 [facility] Comment on above: Performed By: #### 1 000, 4500, 4510, 4520, 52650, 5000, 02868, 36832 #### [facility] and [facility] Unless Otherwise Noted [address] / COLA #4724/CLIA # [id number] Monocytes/100 WBC (Bld) 10.0 % Normal [facility] Comment on above: Performed By: #### 1 000, 4500, 4510, 4520, 00046, 5000, 33779, 83500 #### Endocrine and Diabetes [facility], [facility] Unless Otherwise Noted [address] [address] / COLA #4724/CLIA # [id number] Neutrophils/100 WBC (Bld) 51.3 % Normal [facility] [place] Comment on above: Performed By: #### 1 000, 4500, 4510, 4520, 05035, 5000, 18515, 99045 #### [facility], [facility] Unless Otherwise Noted [address] [address] / COLA #4724/CLIA # [id number] Platelet mean volume (Bld) [Entitic vol] 8.8 fL Normal 7-12 [facility] [place] Comment on above: Performed By: #### 1 000, 4500, 4510, 4520, 35156, 5000, 78987, 23233 #### Endocrine and Diabetes [facility] Unless Otherwise Noted [address] [address] / COLA #4724/CLIA # [id number] Platelets (Bld) [#/Vol] 225 10*3/uL Normal 150-450 [facility] [place] Comment on above: Performed By: #### 1 000, 4500, 4510, 4520, 47607, 5000, 90303, 93655 #### Endocrine and Diabetes [facility], [facility] Unless Otherwise Noted [address] [address] / COLA #4724/CLIA # [id number] RBC (Bld) [#/Vol] 4.25 X10E12/L Normal 3.80-5.20 [facility] Comment on above: Performed By: #### 1 000, 4500, 4510, 4520, 46005, 5000, 19039, 01014 #### Endocrine and Diabetes [facility] Unless Otherwise Noted [address] [address] / COLA #4724/CLIA # [id number] WBC (Bld) [#/Vol] 5.1 10*3/uL Normal 4.8-10.8 [facility] [place] Comment on above: Performed By: #### 1 000, 4500, 4510, 4520, 28999, 5000, 98364, 33338 #### [facility], [facility] Unless Otherwise Noted [address] [address] / COLA #4724/CLIA # [id number] [facility] 11-25-2019 Albumin [Mass/Vol] 4.2 g/dL Normal 3.5-5.0 [facility] [place] Comment on above: Performed By: #### 1 000, 4500, 4510, 4520, 80926, 5000, 61972, 99683 #### [facility] [place], [facility] Unless Otherwise Noted [address] [address] / COLA #4724/CLIA # [id number] ALP [Catalytic activity/Vol] 103.0 U/L Normal 38.0-126.0 [facility] Comment on above: Performed By: #### 1 000, 4500, 4510, 4520, 53393, 5000, 53500, 96987 #### [facility] and [facility], [facility] Unless Otherwise Noted [address] [address] / COLA #4724/CLIA # [id number] ALT [Catalytic activity/Vol] 62.0 U/L Normal 13.0-69.0 [facility] Comment on above: Performed By: #### 1 000, 4500, 4510, 4520, 57361, 5000, 42726, 40196 #### [facility] Unless Otherwise Noted [address] [address] / COLA #4724/CLIA # [id number] Anion gap [Moles/Vol] 4.0 mmol/L Low 10.0-15.0 End [facility] Comment on above: Performed By: #### 1 000, 4500, 4510, 4520, 22440, 5000, 03300, 94646 #### [facility] Unless Otherwise Noted [address] [address] / COLA #4724/CLIA # [id number] AST [Catalytic activity/Vol] 30.0 U/L Normal 15.0-46.0 [facility] Comment on above: Performed By: #### 1 000, 4500, 4510, 4520, 80252, 5000, 59494, 49571 #### [facility] Unless Otherwise Noted [address] [address] / COLA #4724/CLIA # [id number] Bilirubin Ql (U) 0.50 mg/dL Normal 0.20-1.30 [facility] Comment on above: Performed By: #### 1 000, 4500, 4510, 4520, 12085, 5000, 54620, 24442 #### [facility] Unless Otherwise Noted [address] [address] / COLA #4724/CLIA # [id number] BUN/Cre Ratio 32.9 Ratio High 7.0-27.0 [facility] Comment on above: Performed By: #### 1 000, 4500, 4510, 4520, 64309, 5000, 08441, 40208 #### Endocrine and Diabetes [facility] Unless Otherwise Noted [address] [address] / COLA #4724/CLIA # [id number] Calcium [Mass/Vol] 9.5 mg/dL Normal 8.4-10.2 [facility] Comment on above: Performed By: #### 1 000, 4500, 4510, 4520, 67158, 5000, 29008, 74236 #### [facility] Unless Otherwise Noted [address] [address] / COLA #4724/CLIA # [id number] Chloride [Moles/Vol] 102.0 mmol/L Normal 98.0-107.0 [facility] Comment on above: Performed By: #### 1 000, 4500, 4510, 4520, 90374, 5000, 15034, 05184 #### [facility] and [facility] Unless Otherwise Noted [address] [address] / COLA #4724/CLIA # [id number] CO2 [Moles/Vol] 31.0 mmol/L High 22.0-30.0 Endocrin [facility] Comment on above: Performed By: #### 1 000, 4500, 4510, 4520, 72498, 5000, 25334, 49697 #### [facility]ocrine [facility] Unless Otherwise Noted [address] [address] / COLA #4724/CLIA # [id number] Creatinine [Mass/Vol] 0.7 mg/dL Normal 0.5-1.0 End [facility] Comment on above: Performed By: #### 1 000, 4500, 4510, 4520, 24782, 5000, 49418, 87773 #### [facility] Unless Otherwise Noted [address] [address] / COLA #4724/CLIA # [id number] GFR/1.73 sq M predicted among blacks MDRD (S/P/Bld) [Vol rate/Area] 110.1 ml/m1.73 Normal [facility] Comment on above: Performed By: #### 1 000, 4500, 4510, 4520, 06340, 5000, 96238, 29827 #### [facility] Unless Otherwise Noted [address] [place] [address] / COLA #4724/CLIA # [id number] GFR/1.73 sq M predicted among non-blacks MDRD (S/P/Bld) [Vol rate/Area] 91.0 ml/m1.73 Normal [facility] Comment on above: Performed By: #### 1 000, 4500, 4510, 4520, 45427, 5000, 26205, 42269 #### [facility] Unless Otherwise Noted [address] [address] / COLA #4724/CLIA # [id number] GFR/1.73 sq M predicted among non-blacks MDRD (S/P/Bld) [Vol rate/Area] 96.2 ml/m1.73 Normal [facility] Comment on above: Performed By: #### 1 000, 4500, 4510, 4520, 47160, 5000, 91901, 31606 #### [facility] Unless Otherwise Noted [address] [place] [address] / COLA #4724/CLIA # [id number] Glucose [Mass/Vol] 109.0 mg/dL High 74.0-106.0 Endoc [facility] Comment on above: Performed By: #### 1 000, 4500, 4510, 4520, 12016, 5000, 12232, 09894 #### Endocrine [facility] Unless Otherwise Noted [address] [address] / COLA #4724/CLIA # [id number] Potassium [Moles/Vol] 4.3 mmol/L Normal 3.5-5.1 End [facility] Comment on above: Performed By: #### 1 000, 4500, 4510, 4520, 49845, 5000, 34893, 81299 #### [facility]ocrine [facility] Unless Otherwise Noted [address] [address] / COLA #4724/CLIA # [id number] Protein [Mass/Vol] 6.8 g/dL Normal 6.3-8.2 [facility] Comment on above: Performed By: #### 1 000, 4500, 4510, 4520, 80417, 5000, 93171, 62214 #### [facility] Unless Otherwise Noted [address] [address] / COLA #4724/CLIA # [id number] Sodium [Moles/Vol] 137.0 mmol/L Normal 137.0-145.0 End [facility] Comment on above: Performed By: #### 1 000, 4500, 4510, 4520, 06738, 5000, 40330, 74981 #### Endocrine [facility] Unless Otherwise Noted [address] [address] / COLA #4724/CLIA # [id number] Urea nitrogen [Mass/Vol] 23.0 mg/dL High 7.0-17.0 [facility] Comment on above: Performed By: #### 1 000, 4500, 4510, 4520, 26890, 5000, 76187, 48741 #### [facility] Unless Otherwise Noted [address] [place] [address] / COLA #4724/CLIA # [id number] FT3on 11-25-2019 FT3 4.39 pg/mL Normal 2.71-6.16 [facility] Comment on above: Performed By: #### 1 000, 4500, 4510, 4520, 97220, 5000, 04008, 08495 #### [facility] Unless Otherwise Noted [address] [place] [address] / COLA #4724/CLIA # [id number] FT4on 11-25-2019 Free T4 [Mass/Vol] 0.95 ng/dL Normal 0.64-1.79 Endocr [facility] Comment on above: Performed By: #### 1 000, 4500, 4510, 4520, 07344, 5000, 23496, 62930 #### [facility] [place] Unless Otherwise Noted [address] [place] [address] / COLA #4724/CLIA # [id number] TSHon 11-25-2019 TSH Qn 0.35 uIU/ml Low 0.47-4.68 [facility] Comment on above: Performed By: #### 1 000, 4500, 4510, 4520, 50643, 5000, 58687, 37066 #### [facility] Unless Otherwise Noted [address] [place] [address] / COLA #4724/CLIA # [id number] Vital Signs Date Time Vital Sign Value Performing Clinician Facility 09-29-2023 10:33-0500 Body height 167.6 cm South Saba DO Work Phone: [facility] 09-29-2023 10:33-0500 Body weight 62.14 kg South Saba DO Work Phone: [facility] 09-12-2023 10:00-0400 Body height 167.64 cm Roland Ball Other [facility] Other 09-12-2023 10:00-0400 Body mass index (BMI) [Ratio] 23.05 kg/m2 Roland Ball Other [facility] Other 09-12-2023 10:00-0400 Body weight 64.77 kg Roland Ball Other [facility] Other 09-12-2023 10:00-0400 Diastolic blood pressure 75 mm[Hg] Roland Ball Other [facility] Other 09-12-2023 10:00-0400 Respiratory rate 12 /min Roland Ball Other [facility] Other 09-12-2023 10:00-0400 Systolic blood pressure 131 mm[Hg] Roland Ball Other [facility] Other 08-29-2023 10:55-0400 Body height 167.6 cm Elder Angelia [employer] Work Phone: [facility] 08-29-2023 10:55-0400 Body temperature 98.01 [degF] Elder Angelia [employer] Work Phone: [facility] 08-29-2023 10:55-0400 Body weight 66.68 kg Elder Angelia [employer] Work Phone: [facility] 08-29-2023 10:55-0400 Diastolic blood pressure 78 mm[Hg] Elder Angelia [employer] Work Phone: [facility] 08-29-2023 10:55-0400 Heart rate 82 /min Elder Angelia [employer] Work Phone: [facility] 08-29-2023 10:55-0400 SaO2% (BldA) [Mass fraction] 99 % Elder Angelia [employer] Work Phone: [facility] 08-29-2023 10:55-0400 Systolic blood pressure 163 mm[Hg] Elder Angelia [employer] Work Phone: [facility] 08-29-2023 10:03-0400 Body temperature 98.01 [degF] Heidi Macdonald MD Work Phone: [facility] 08-29-2023 10:03-0400 Body weight 66.68 kg Heidi Macdonald MD Work Phone: [facility] 08-29-2023 10:03-0400 Diastolic blood pressure 77 mm[Hg] Heidi Macdonald MD Work Phone: [facility] 08-29-2023 10:03-0400 Heart rate 82 /min Heidi Macdonald MD Work Phone: [facility] [facility] 08-29-2023 10:03-0400 Respiratory rate 16 /min Heidi Macdonald MD Work Phone: [facility] 08-29-2023 10:03-0400 SaO2% (BldA) [Mass fraction] 99 % Heidi Macdonald MD Work Phone: [facility] 08-29-2023 10:03-0400 Systolic blood pressure 157 mm[Hg] Heidi Macdonald MD Work Phone: [facility] 07-04-2023 09:18-0400 Body height 167.6 cm South Saba DO Work Phone: [facility] 07-04-2023 09:18-0400 Body temperature 97.59 [degF] South Saba DO Work Phone: [facility] 07-04-2023 09:18-0400 Body weight 66.5 kg South Saba DO Work Phone: [facility] 07-04-2023 09:18-0400 Diastolic blood pressure 68 mm[Hg] South Saba DO Work Phone: [facility] 07-04-2023 09:18-0400 Heart rate 73 /min South Saba DO Work Phone: [facility] 07-04-2023 09:18-0400 SaO2% (BldA) [Mass fraction] 100 % South Saba DO Work Phone: [facility] 07-04-2023 09:18-0400 Systolic blood pressure 139 mm[Hg] South Saba DO Work Phone: [facility] 06-27-2023 10:30-0400 Body temperature 97.39 [degF] Heidi Macdonald MD Work Phone: [facility] 06-27-2023 10:30-0400 Body weight 69.4 kg Heidi Macdonald MD Work Phone: [facility] 06-27-2023 10:30-0400 Diastolic blood pressure 76 mm[Hg] Heidi Macdonald MD Work Phone: [facility] 06-27-2023 10:30-0400 Heart rate 70 /min Heidi Macdonald MD Work Phone: [facility] 06-27-2023 10:30-0400 Respiratory rate 16 /min Heidi Macdonald MD Work Phone: [facility] 06-27-2023 10:30-0400 SaO2% (BldA) [Mass fraction] 97 % Heidi Macdonald MD Work Phone: [facility] 06-27-2023 10:30-0400 Systolic blood pressure 141 mm[Hg] Heidi Macodnald MD Work Phone: [facility] 05-23-2023 09:45-0400 Body height 167.64 cm Roland Ball Other [employer] Other 05-23-2023 09:45-0400 Body mass index (BMI) [Ratio] 24.79 kg/m2 Roland Ball Other [employer] Other 05-23-2023 09:45-0400 Body weight 69.67 kg Roland Ball Other [employer] Other 05-23-2023 09:45-0400 Diastolic blood pressure 78 mm[Hg] Roland Ball Other [employer] Other 05-23-2023 09:45-0400 Respiratory rate 12 /min Roland Ball Other [employer] Other 05-23-2023 09:45-0400 Systolic blood pressure 158 mm[Hg] Roland Ball Other [employer] Other 04-23-2023 13:30-0400 Body height 167.64 cm Roland Ball Other [employer] Other 04-23-2023 13:30-0400 Body mass index (BMI) [Ratio] 24.34 kg/m2 Roland Ball Other [employer] Other 04-23-2023 13:30-0400 Body weight 68.4 kg Roland Ball Other [employer] Other 04-23-2023 13:30-0400 Diastolic blood pressure 74 mm[Hg] Roland Ball Other [employer] Other 04-23-2023 13:30-0400 Respiratory rate 12 /min Roland Ball Other [employer] Other 04-23-2023 13:30-0400 Systolic blood pressure 131 mm[Hg] Roland Ball Other [employer] Other 03-05-2023 09:30-0400 Body height 167.6 cm Juan Manuel Pack [employer] Work Phone: [facility] 03-05-2023 09:30-0400 Body weight 70.22 kg Juan Manuel Pack [employer] Work Phone: [facility] 03-05-2023 09:30-0400 Diastolic blood pressure 90 mm[Hg] Juan Manuel Pack [employer] Work Phone: [facility] 03-05-2023 09:30-0400 Heart rate 85 /min Juan Manuel Pack [employer] Work Phone: [facility] 03-05-2023 09:30-0400 Systolic blood pressure 152 mm[Hg] Juan Manuel Pack [employer] Work Phone: [facility] 01-24-2023 08:45-0500 Body height 167.64 cm Roland Ball Other [employer] Other 01-24-2023 08:45-0500 Body mass index (BMI) [Ratio] 24.05 kg/m2 Roland Ball Other [employer] Other 01-24-2023 08:45-0500 Body temperature 96.7 [degF] Roland Ball Other [employer] Other 01-24-2023 08:45-0500 Body weight 67.59 kg Roland Ball Other [employer] Other 01-24-2023 08:45-0500 Diastolic blood pressure 93 mm[Hg] Roland Serrano Other [employer] Other 01-24-2023 08:45-0500 Systolic blood pressure 165 mm[Hg] Roland Serrano Other [employer] Other 01-20-2023 13:35-0500 Body height 167.64 cm Olya Gann Other [employer] Other 01-20-2023 13:35-0500 Body mass index (BMI) [Ratio] 24.53 kg/m2 Olya Alonzoault Other [employer] Other 01-20-2023 13:35-0500 Body temperature 97.3 [degF] Olya Sanjuanita Other [employer] Other 01-20-2023 13:35-0500 Body weight 68.95 kg Olya Gann Other [employer] Other 01-20-2023 13:35-0500 Respiratory rate 18 /min Olya Gann Other [employer] Other 01-20-2023 13:35-0500 SaO2% (BldA) [Mass fraction] 95 % Olyacameron Gann Other [employer] Other 01-03-2023 15:27-0500 Body height 167.6 cm Henry Ramos MD Work Phone: [facility] 01-03-2023 15:27-0500 Body temperature 97.81 [degF] Henry Ramos MD Work Phone: [facility] 01-03-2023 15:27-0500 Body weight 71.17 kg Henry Ramos MD Work Phone: [facility] 01-03-2023 15:27-0500 Diastolic blood pressure 87 mm[Hg] Henry Ramos MD Work Phone: [facility] 01-03-2023 15:27-0500 Heart rate 95 /min Henry Ramos MD Work Phone: [facility] 01-03-2023 15:27-0500 SaO2% (BldA) [Mass fraction] 99 % Henry Ramos MD Work Phone: [facility] 01-03-2023 15:27-0500 Systolic blood pressure 141 mm[Hg] Henry Ramos MD Work Phone: [facility] 09-26-2022 12:30-0500 Diastolic blood pressure 89 mm[Hg] Leila Alamo MD Work Phone: [facility] 09-26-2022 12:30-0500 Heart rate 79 /min Leila Alamo MD Work Phone: [facility] 09-26-2022 12:30-0500 Respiratory rate 18 /min Leila Alamo MD Work Phone: [facility] 09-26-2022 12:30-0500 SaO2% (BldA) [Mass fraction] 98 % Leila Alamo MD Work Phone: [facility] 09-26-2022 12:30-0500 Systolic blood pressure 140 mm[Hg] Leila Alamo MD Work Phone: [facility] 09-26-2022 11:25-0500 Body height 167.6 cm Leila Alamo MD Work Phone: [facility] 09-26-2022 11:25-0500 Body temperature 98.2 [degF] Leila Alamo MD Work Phone: [facility] 09-26-2022 11:25-0500 Body weight 68.04 kg Leila Alamo MD Work Phone: [facility] 08-07-2022 15:28-0400 Body weight 68.95 kg Henry Ramos MD Work Phone: [facility] 08-07-2022 15:28-0400 Diastolic blood pressure 91 mm[Hg] Henry Ramos MD Work Phone: [facility] 08-07-2022 15:28-0400 SaO2% (BldA) [Mass fraction] 98 % Henry Ramos MD Work Phone: [facility] 08-07-2022 15:28-0400 Systolic blood pressure 132 mm[Hg] Henry Ramos MD Work Phone: [facility] 03-13-2022 14:38-0400 Body height 169.5 cm Henry Ramos MD Work Phone: [facility] 03-13-2022 14:38-0400 Body temperature 96.8 [degF] Henry Ramos MD Work Phone: [facility] 03-13-2022 14:38-0400 Body weight 66.32 kg Henry Ramos MD Work Phone: [facility] 03-13-2022 14:38-0400 Diastolic blood pressure 96 mm[Hg] Henry Ramos MD Work Phone: [facility] 03-13-2022 14:38-0400 Heart rate 85 /min Henry Ramos MD Work Phone: [facility] 03-13-2022 14:38-0400 Respiratory rate 16 /min Henry Ramos MD Work Phone: [facility] 03-13-2022 14:38-0400 SaO2% (BldA) [Mass fraction] 98 % Henry Ramos MD Work Phone: [facility] 03-13-2022 14:38-0400 Systolic blood pressure 151 mm[Hg] Henry Ramos MD Work Phone: [facility] 07-07-2021 14:50-0400 Diastolic blood pressure 101 mm[Hg] Mayra Michel MD Work Phone: [employer] Work Phone: 07-07-2021 14:50-0400 Heart rate 70 /min Mayra Michel MD Work Phone: [employer] Work Phone: 07-07-2021 14:50-0400 Respiratory rate 13 /min Mayra Michel MD Work Phone: [employer] Work Phone: 07-07-2021 14:50-0400 SaO2% (BldA) [Mass fraction] 99 % Mayra Michel MD Work Phone: [employer] Work Phone: 07-07-2021 14:50-0400 Systolic blood pressure 133 mm[Hg] Mayra Michel MD Work Phone: [employer] Work Phone: 07-07-2021 13:25-0400 Body height 167.6 cm Mayra Michel MD Work Phone: [employer] Work Phone: 07-07-2021 13:25-0400 Body mass index (BMI) [Ratio] 24.19 kg/m2 Mayra Michel MD Work Phone: [employer] Work Phone: 07-07-2021 13:25-0400 Body temperature 98.6 [degF] Mayra Michel MD Work Phone: [employer] Work Phone: 07-07-2021 13:25-0400 Body weight 67.99 kg Mayra Michel MD Work Phone: [employer] Work Phone: 11-25-2019 16:19-0500 Body weight 70.4 Kg [facility] Comment on above: Performed By: #### 1000, 4500, 4510, 452 0, 37144, 5000, 54461, 09684 #### [facility] Unless Otherwise Noted [address] [place] [address] / [facility] #[id number]/LAKIA # [id number] Encounters Encounter Date Encounter Type Care Provider Facility Start: 10-23-2023 End: 10-23-2023 ambulatory Roland Serrano Other [employer] Other Start: 10-23-2023 Telephone encounter Roland Serarno [facility] Start: 10-02-2023 End: 10-02-2023 ambulatory LEIGH MORENO Not Available Start: 09-29-2023 End: 09-30-2023 ambulatory ROLAND Bernie MAGGIE Facility:[facility] Start: 09-29-2023 End: 09-29-2023 Patient encounter procedure Jackson Valente DO Work Phone: Colorectal Surgery Comment on above: Radiation proctitis (Primary Dx); Endometrial cancer (HCC) Start: 09-21-2023 End: 09-21-2023 ambulatory Roland Serrano Other [employer] Other Start: 09-21-2023 [facility] Start: 09-18-2023 End: 09-18-2023 ambulatory Roland Serrano Other [employer] Other Start: 09-18-2023 Telephone [facility] Start: 09-17-2023 End: 09-17-2023 ambulatory Roland Serrano Other [employer] Other Start: 09-17-2023 Telephone [facility] Start: 09-15-2023 End: 09-15-2023 ambulatory Roland Serrano Other [employer] Other Start: 09-15-2023 Telephone encounter Roland Serrano [facility] Start: 09-14-2023 End: 09-14-2023 ambulatory Roland Serrano Other [employer] Other Start: 09-14-2023 Telephone encounter Roland Serrano [facility] Start: 09-12-2023 End: 09-12-2023 ambulatory Roland Serrano Other [employer] Other Start: 09-12-2023 Encounter for genera l adult medical examination without abnormal findings Roland Serrano [facility] Start: 09-12-2023 Periodic preventive med est patient 40-64yrs Roland Serrano [facility] Start: 09-10-2023 End: 09-10-2023 ambulatory Roland Serrano Other [employer] Other Start: 09-10-2023 Telephone encounter Roland Serrano [facility] Start: 09-03-2023 End: 09-03-2023 ambulatory Roland Serrano Other [employer] Other Start: 09-03-2023 Telephone encounter Roland Serrano [facility] Start: 09-02-2023 Telephone encounter Roland Serrano [facility] Start: 09-02-2023 End: 09-02-2023 ambulatory ROLAND E BALL [facility] Other Start: 09-01-2023 End: 09-01-2023 ambulatory Roland Maggie Other [employer] Other Start: 09-01-2023 Telephone encounter Roland Ball [facility] Start: 08-29-2023 End: 08-29-2023 ambulatory ROLAND E BALL Facility:[facility] Start: 08-29-2023 End: 08-30-2023 ambulatory ROLAND E BALL Facility:[facility] Start: 08-29-2023 Encounter for other preprocedural examination ELDER GALAN [facility] Start: 08-29-2023 End: 08-29-2023 ambulatory ROLAND SERRANO Facility:[facility] Start: 08-29-2023 End: 08-29-2023 Preprocedural examination done Elder Galan APRN.CNP Work Phone: [facility] Work Phone: Start: 08-29-2023 End: 08-29-2023 ambulatory Pulm Fct Lab Main 8 Pulmonary Medicine Comment on above: Spirometry Start: 08-29-2023 End: 08-29-2023 Patient encounter procedure Pulm Fct Lab Main 8 [facility] Comment on above: Dyspnea and respirat ory abnormalities (Primary Dx); Calcified nodule; Iron deficiency anemia due to chronic blood loss Pre-op evaluation (P rimary Dx) Start: 08-29-2023 End: 08-29-2023 Subsequent hospital visit by physician Xr Chest Main A21 Radiology Comment on above: Dyspnea, unspecified type [R06.00] Start: 08-26-2023 Orders Only Heidi Macdonald MD Work Phone: [facility] [place] Comment on above: ILD (interstitial lamont ng disease) (HCC) (Primary Dx) Start: 08-22-2023 ambulatory South rincon DO Work Phone: [facility] Start: 08-22-2023 Patient encounter procedure South Saba DO Work Phone: Colorectal Surgery Comment on above: Pre op appointment Start: 08-22-2023 End: 08-22-2023 Subsequent hospital visit by physician [facility] Work Phone: [facility] Radiology CT Scan Comment on above: Interstitial pulmona ry disease (HCC) [J84.9] Start: 08-14-2023 ambulatory ROLAND SERRANO Facilit y:[facility] Start: 08-04-2023 End: 08-04-2023 ambulatory Roland Serrano Other [employer] Other Start: 08-04-2023 Office outpatient vi sit 15 minutes Roland Serrano [facility] Start: 07-22-2023 ambulatory South Rendon estuardobernie DO Work Phone: Colorectal Surgery Start: 07-22-2023 Telephone encounter South Saba DO Work Phone: Colorectal Surgery Comment on above: Patient Update Start: 07-08-2023 End: 07-08-2023 ambulatory Roland Serrano Other [employer] Other Start: 07-08-2023 Telephone encounter Roland VOGT [facility] Start: 07-04-2023 End: 07-05-2023 ambulatory South Saba [...] procedure Pulm Fct Lab Main 9 [facility] Comment on above: Interstitial pulmona ry disease (HCC) (Primary Dx); Other secondary pulmonary hypertension (HCC) Start: 05-26-2023 ambulatory Henry perales MD Work Phone: Gynecology Oncology Comment on above: Procitis Start: 05-23-2023 End: 05-23-2023 ambulatory Roland Serrano Other [employer] Other Start: 05-23-2023 Office outpatient vi sit 15 minutes Roland Maggie [facility] Start: 05-13-2023 End: 05-13-2023 ambulatory Roland Serrano Other [employer] Other Start: 05-13-2023 Telephone encounter Roland VOGT [facility] Start: 04-23-2023 End: 04-23-2023 ambulatory Roland Serrano Other [employer] Other Start: 04-23-2023 Patient encounter procedure Roland Serrano [facility] Start: 03-25-2023 End: 03-25-2023 ambulatory Roland Serrano Other [employer] Other Start: 03-25-2023 Telephone encounter Roland Serrano [facility] Start: 03-21-2023 Telephone encounter Roland VOGT [facility] Start: 03-21-2023 End: 03-22-[address] ROLAND SERRANO [facility] Other Start: 03-11-2023 End: 03-11-2023 ambulatory Roland Serrano Other [employer] Other Start: 03-11-2023 Telephone encounter Roland Serrano [facility] Start: 03-10-2023 End: 03-11-[address] ROLAND SERRANO [facility] Other Start: 03-10-2023 Telephone encounter Roland Serrano [facility] Start: 03-05-2023 End: 03-05-2023 ambulatory ROLAND Bernie MAGGIE Facility:[facility] Start: 03-05-2023 End: 03-05-2023 Patient encounter procedure Juan Manuel Medina APRN[employer] Work Phone: Gastroenterology Comment on above: Rectal bleeding (Vivi nicho Dx) Start: 01-24-2023 End: 01-24-2023 ambulatory Roland Serrano Other [employer] Other Start: 01-24-2023 Office outpatient vi sit 15 minutes Roland Serrano [facility] Start: 01-23-2023 End: 01-23-2023 ambulatory Roland Serrano Other [employer] Other Start: 01-23-2023 Telephone encounter Roland Serrano TOR[facility] Start: 01-20-2023 Office outpatient vi sit 15 minutes Olya Gann [facility] Start: 01-20-2023 End: 01-20-[address] ROLAND SERRANO [facility] Other Start: 01-07-2023 End: 01-07-2023 ambulatory Roland Serrano Other [employer] Other Start: 01-07-2023 Telephone encounter Roland Serrano [facility] Start: 01-03-2023 End: 01-04-2023 ambulatory ROLAND SERRANO Facility:[facility] Start: 01-03-2023 End: 01-04-2023 ambulatory ROLAND SERRANO Facility:[facility] Start: 01-03-2023 End: 01-04-2023 ambulatory Henry Ramos MD Work Phone: Gynecology Oncology Comment on above: Recurrent carcinoma of endometrium (HCC) (Primary Dx); Radiation proctitis; Blood per rectum Start: 01-03-2023 End: 01-04-2023 Patient encounter procedure Henry Ramos MD Work Phone: [facility] Start: 12-25-2022 Telephone encounter Aretha Pena [...] examination without abnormal findings DR ROLAND SERRANO [facility] Start: 09-04-2022 End: 09-05-[address] ROLAND SERRANO Facility:[facility] Start: 09-04-2022 End: 09-05-2022 Encounter for general adult medical examination without abnormal findings DR ROLAND SERRANO Facility:[facility] Start: 08-29-2022 Adult health examination Roland Serrano Other [employer] Other Start: 08-29-2022 Encounter for genera l adult medical examination without abnormal findings Roland Serrano Other [employer] Other Start: 08-29-2022 Pre-procedure evaluation check Roland Serrano Other [employer] Other Start: 08-07-2022 End: 08-07-2022 ambulatory Henry Ramos MD Work Phone: Gynecology Oncology Comment on above: Recurrent carcinoma of endometrium (HCC) (Primary Dx); Radiation proctitis; Foreshortening of vagina; Endometrial cancer (HCC); Vaginal atrophy; Rectal bleeding Start: 08-07-2022 End: 08-07-2022 Patient encounter procedure Henry Ramos MD Work Phone: [facility] Start: 06-12-2022 End: 06-12-2022 ambulatory SALOMON AYAZ Facility: Start: 03-13-2022 End: 03-13-2022 ambulatory Henry Ramos MD Work Phone: Gynecology Oncology Comment on above: Recurrent carcinoma of endometrium (HCC) (Primary Dx); Vaginal atrophy; Foreshortening of vagina Start: 03-13-2022 End: 03-13-2022 Patient encounter procedure Henry Ramos MD Work Phone: [facility] Start: 11-21-2021 End: 11-22-2021 Emergency department patient visit ADONA Bernie [facility] Start: 07-07-2021 End: 07-07-2021 Emergency department patient visit [facility] Start: 07-07-2021 End: 07-07-2021 Emergency department patient visit Mayra Michel MD Work Phone: [facility] Comment on above: Dizziness (Primary D x); Dehydration Procedures Date Procedure Procedure Detail Performing Clinician Start: 09-29-2023 Follow-up visit Follow Up SOUTH SABA Start: 09-02-2023 Antibody screen BENJAMI N BALL Comment on above: Order Comment: Speci men Type: BLOOD SPECIMEN Ordering Facility: [facility] Address: [address] [address] Performed By: #### 5 [id number], [id number] #### [facility] CLIA [id number] [address] [place] [address] Start: 08-29-2023 Antibody screen JUAN SERRANO Comment on above: Order Comment: Speci men Type: BLOOD SPECIMEN Ordering Facility: [facility] Address: [address] [address] Performed By: #### 5 [id number], [id number] #### [facility] CLIA [id number] [address] [place] [address] Start: 08-29-2023 Spmtry w/vc expirato ry bernie [...] w /collj spec when pfrmd Ernesto Chacko [employer] Work Phone: Start: 09-26-2022 Colonoscopy Leila Alamo MD Work Phone: Start: 11-02-2021 Antibody screen Comment on above: Order Comment: Trans fuse now? N Result Comment: PERF ORMED BY: [facility] [address] [place] [address] PATHOLOGIST BOARDER HAND CLAIRE ANTHONY M.D. Start: 10-15-2021 Antibody screen Comment on above: Order Comment: Date of Surgery: [id number] # of PRBC units on hold?: 2 Result Comment: PERF ORMED BY: [facility] [place] [address] PATHOLOGIST BOARDER HAND CLAIRE ANTHONY M.D. Start: 09-20-2021 Adult depression scr eening assessment Henry Ramos MD Work Phone: Start: 08-20-2021 Antibody screen Comment on above: Order Comment: Date of Surgery: [id number] # of PRBC units on hold?: 2 Result Comment: PERF ORMED BY: [facility] [address] [place] [address] PATHOLOGIST BOARDER HAND CLAIRE ANTHONY M.D. Start: 07-07-2021 Urinalysis microscopic [...] Author Start: 08-29-2026 Diabetes Screening [facility] Start: 07-04-2026 DIABETES SCREEN DIABETES SCREEN [facility] Start: 07-04-2026 Diabetes Screening [facility] Start: 09-26-2023 Colonoscopy COLONOSCOPY [facility] Start: 09-26-2023 COLORECTAL CANCER SCREENING COLORECTAL CANCER SCREENING [facility] Start: 08-26-2023 End: 09-24-2024 SPIROMETRY BASELINE ONLY SPIROMETRY BASELINE ONLY PFT Routine ILD (interstitial lung disease) (HCC) Expected: 08/26/2023, Expires: 09/24/2024 [facility] Work Phone: Comment on above: Expected: 08/26/2023 , Expires: 09/24/2024 Start: 07-22-2023 End: 09-21-2023 CBC W Auto Differential panel - Blood CBC + DIFF Lab Routine Radiation proctitis Expected: 07/22/2023, Expires: 09/21/2023 [facility] Work Phone: Comment on above: Expected: 07/22/2023 , Expires: 09/21/2023 Start: 07-22-2023 End: 09-21-2023 Comprehensive metabolic 2000 panel - Serum or Plasma COMP METABOLIC PANEL Lab Routine Radiation proctitis Expected: 07/22/2023 (Approximate), Expires: 09/21/2023 [facility] Work Phone: Comment on above: Expected: 07/22/2023 (Approximate), Expires: 09/21/2023 Start: 07-18-2023 Covid-19 Vaccine ( season) Covid-19 Vaccine () [facility] Start: 07-18-2023 Influenza vaccination [facility] Start: 11-17-2022 [facility] Start: 09-20-2022 Adult depression scr eening assessment DEPRESSION SCREENING [facility] Start: 08-12-2022 DIABETES SCREEN DIABETES SCREEN [facility] Start: 08-07-2022 End: 10-07-2022 CBC W Auto Differential panel - Blood CBC + DIFF Lab Routine Rectal bleeding Expected: 08/07/2022, Expires: 10/07/2022 [facility] Work Phone: Comment on above: Expected: 08/07/2022 , Expires: 10/07/2022 Start: 07-18-2022 Influenza vaccination [facility] Start: 11-27-2021 COVID-19 VACCINE (3 - Booster for Moderna series) COVID-19 VACCINE (3 - Booster for Moderna series) [facility] Start: 11-17-2021 DEPRESSION ASSESSMENT DEPRESSION ASS ESSMENT [facility] Start: 08-22-2021 COVID-19 VACCINE (3 - Booster for Moderna series) COVID-19 VACCINE (3 - Booster for Moderna series) [facility] Start: 08-22-2021 COVID-19 VACCINE (3 - Moderna series) COVID-19 VACCINE (3 - Moderna series) [facility] Start: 07-18-2021 Influenza vaccination Flu vaccine (# 1) [employer] Work Phone: Start: 2020 RSV Vaccine (1 - 1-d ose 60+ series) RSV Vaccine (1 - 1-dose 60+ series) [facility] Start: 2010 SHINGRIX VACCINE (1 of 2) [place] GRIX VACCINE (1 of 2) [facility] Start: 2005 COLOGUARD (FIT-DNA) COLOGUARD (FIT-D NA) [facility] Start: 2005 Colonoscopy COLONOSCOPY [facility] Start: 2005 COLORECTAL CANCER SCREENING COLORECTAL CANCER SCREENING [facility] Start: [address] COLONOGRAPHY [facility] Start: 2005 FECAL OCCULT BLOOD FECAL OCCULT BLOO D [facility] Start: 2005 Lipid 1996 panel - S marcela or Plasma Lipid Screening [facility] Start: 2005 LIPID SCREEN LIPID SCREEN [facility] Start: 2005 SIGMOIDOSCOPY SIGMOIDOSCOPY [facility] Start: 2000 Mammography [facility] Start: 1990 HPV TESTING HPV TESTING [facility] Start: 1981 PAP TESTING PAP TESTING [facility] Start: 1979 Urine microalbumin profile [facility] Start: 1978 ANNUAL PCP TEAM MACHINE STITCHER SHAILA DISEASE VISIT ANNUAL PCP TEAM CHRONIC DISEASE VISIT [facility] Start: 1978 BP CONTROLLED (<130/80) BP CONTROLLE D (<130/80) [facility] Start: 1978 HEPATITIS C SCREENING HEPATITIS C SC ADELAIDA [facility] Start: 1978 HIV SCREENING HIV SCREENING [facility] End: 03-05-2024 Colonoscopy COLONOSCOPY (THERAPEUTIC) Endoscopy Routine Rectal bleeding 1 Occurrences starting 03/05/2023 until 03/05/2024 [facility] Work Phone: Comment on above: 1 Occurrences starti ng 03/05/2023 until 03/05/2024 End: 07-26-2024 Ct thorax w/o contrast material CT CHEST WO IVCON Radiology Routine Interstitial pulmonary disease (HCC) 1 Occurrences starting 06/27/2023 until 07/26/2024 [facility] [employer] Work Phone: Comment on above: 1 Occurrences starti ng 06/27/2023 until 07/26/2024 End: 07-07-2021 Culture, Urine Culture, Urine Microbiology Routine Once for 1 Occurrences starting 07/07/2021 until 07/07/2021 [employer] Work Phone: Comment on above: Once for 1 Occurrenc es starting 07/07/2021 until 07/07/2021 Culture, Urine Culture, Urine Microbiology Routine 07/07/2021 2:00 PM EDT [employer] Work Phone: End: 06-27-2024 Echocardiography ECHO Cardiology Routine Other secondary pulmonary hypertension (HCC) 1 Occurrences starting 06/27/2023 until 06/27/2024 [facility] Work Phone: Comment on above: 1 Occurrences starti ng 06/27/2023 until 06/27/2024 H&P for surgery H&P FOR SURGERY Procedures Routine Radiation proctitis Ordered: 07/22/2023 [facility] Work Phone: Comment on above: Ordered: 07/22/2023 End: 07-26-2024 LUNG DIFFUSION CAPACITY (DLCO) LUNG DIFFUSION CAPACITY (DLCO) PFT Routine Interstitial pulmonary disease (HCC) 1 Occurrences starting 06/27/2023 until 07/26/2024 [facility] Work Phone: Comment on above: 1 Occurrences starti ng 06/27/2023 until 07/26/2024 LUNG DIFFUSION CAPAC ITY (DLCO) LUNG DIFFUSION CAPACITY (DLCO) PFT Routine Interstitial pulmonary disease (HCC) 08/29/2023 9:27 AM EDT [facility] Work Phone: End: 07-26-2024 LUNG VOLUMES LUNG VOLUMES PFT Routine Interstitial pulmonary disease (HCC) 1 Occurrences starting 06/27/2023 until 07/26/2024 [facility] Work Phone: Comment on above: 1 Occurrences starti ng 06/27/2023 until 07/26/2024 End: 07-26-2024 Pulmonary ventilation & perfusion imaging NM LUNG VENT / PERF VQ Radiology Routine Other secondary pulmonary hypertension (HCC) 1 Occurrences starting 06/27/2023 until 07/26/2024 [facility] Work Phone: Comment on above: 1 Occurrences starti ng 06/27/2023 until 07/26/2024 REFER FOR ADMIT INTERVIEW REFER FOR ADMIT INTERVIEW Procedures Routine Radiation proctitis Ordered: 07/22/2023 [facility] Work Phone: Comment on above: Ordered: 07/22/2023 End: 08-07-2023 Screening colonoscopy COLONOSCOPY SCREENING Endoscopy Routine Rectal bleeding 1 Occurrences starting 08/07/2022 until 08/07/2023 [facility] Work Phone: Comment on above: 1 Occurrences starti ng 08/07/2022 until 08/07/2023 End: 09-26-2022 Screening colonoscopy COLONOSCOPY SCREENING Endoscopy Routine Rectal bleeding 1 Occurrences starting 09/26/2022 until 09/26/2022 [facility] Work Phone: Comment on above: 1 Occurrences starti ng 09/26/2022 until 09/26/2022 SPIROMETRY BASELINE ONLY SPIROME TRY BASELINE ONLY PFT Routine ILD (interstitial lung disease) (HCC) 08/29/2023 9:27 AM EDT [facility] Work Phone: SPIROMETRY WITH DILA TOR IF OBSTRUCTED SPIROMETRY WITH DILATOR IF OBSTRUCTED PFT Routine Dyspnea, unspecified type 06/27/2023 10:15 AM EDT [facility] Work Phone: [facility] Immunizations Immunization Date Immunization Notes Care Provider Fa hector 06-27-2021 COVID-19 vaccine, fu ll dose (MODERNA) Henry Ramos MD Work Phone: [facility] 11-21-2020 COVID-19 vaccine, fu ll dose (MODERNA) Henry Ramos MD Work Phone: [facility] Payers Date Payer Category Payer Unknown MMO MMO [employer] [id number] 2020-Present [phone] [address] [place] [address] PPO [id number] 2020 Unknown [id number] 1960 Unknown [id number] 74 1960 Unknown [id number] 74 1960 Unknown [id number] 93 1960 Unknown [id number] 93 1960 Unknown [id number] 93 1960 Unknown [id number] 93 1960 Unknown [id number] 93 1960 Unknown [id number] 93 1960 Unknown [id number] 93 1960 Unknown [id number] 259 1959 [facility] [id number] 1959 Unknown [id number] Social History Date Type Detail Facility Start: 07-07-2021 End: 08-07-2022 Tobacco smoking status NHIS Never smoker [facility] Start: 07-07-2021 End: 08-07-2022 Tobacco use and exposure Never used [employer] Start: 1960 Sex Assigned At Not on file [facility] Work Phone: Start: 03-03-2022 End: 09-26-2022 Exposure to SARS-CoV-2 (event) Not sure [employer] Start: 03-13-2022 End: 09-29-2023 Alcohol intake Current drinker of alcohol (finding) [facility] Start: 07-28-2019 History SDOH Alcohol Comment 3 drinks per month [facility] Start: 03-05-2023 End: 06-27-2023 Sex Assigned At [facility] Start: 03-05-2023 End: 06-27-2023 History of Social function [facility] Adult Depression Screening Assessment 0 [facility] Clinical Notes 03-13-2022 to 10-23-2023 Note Date & Type Note Facility 10-23-2023 Evaluation note Encounter Date Diagnosis Assessment Notes Oct, Iron deficiency anemia due to chronic blood loss (ICD-10 - D50.0) Oct, Decreased thyroid stimulating hormone (TSH) level (ICD-10 - R79.89) Oct, Pulmonary hypertension (ICD-10 - I27.20) [facility] Other 11-13-2023 NoteHNO ID: [id number] Author: [place], DO Service: ? Author [...] mortality and/or complications of treatment plan: low [facility]11-13-2023 History of Present illness Narrative* [place] [...] of treatment plan: low documented in this encounterFisher[facility]11-05-2023 Evaluation note* Encounter Date Diagnosis Assessment Notes Treatment Notes Treatment Clinical Notes Sep, Iron deficiency anemia due to chronic blood loss (ICD-10 - D50.0) Sep, 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) [facility] Other 11-01-2023 Evaluation note* Encounter Date Diagnosis Assessment Notes Treatment Notes Treatment Clinical Notes Sep, Elevated liver enzymes (ICD-10 - R74.8) Sep, Cholestasis (ICD-10 - K83.1) Sep, Thyrotoxicosis 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 storm, 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 - E05.90) [facility] Other 10-30-2023 Evaluation note* Encounter Date Diagnosis Assessment Notes Treatment Notes Treatment Clinical Notes Aug, Decreased thyroid stimulating hormone (TSH) level (ICD-10 - R79.89) [facility] Other 10-27-2023 Evaluation note* Encounter Date Diagnosis [...] Ferritin May be candidate for Fe IV [facility] Other 10-18-2023 Evaluation note* Encounter Date Diagnosis Assessment Notes Treatment Notes Treatment Clinical Notes Aug, Radiation proctitis (ICD-10 - K62.7) Aug, Iron deficiency anemia due to chronic blood loss (ICD-10 - D50.0) [facility] Other 10-17-2023 NoteHNO ID: [id number] Author: Brannon Sung APRN.ALIN Service: ? 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 Evaluation note * Encounter Date Diagnosis Assessment Notes Treatment Notes Treatment Clinical Notes Aug, Dilated cardiomyopathy (ICD-10 - I42.0) Echo: LVEF normal, RVSP 31, LAE [facility] Other 10-13-2023 NoteHNO ID: [id number] Author: Heidi Menard MD Service: ? Author Type: Fellow Type: Progress Notes Filed: 08/29/2023 4:02 PM Note Text: Ms. Waddell is a 63 year old female who presents to the [facility] [place]. 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 Author Type: Registered Resp Therapist Type: Progress Notes Filed: 08/29/2023 9:52 AM Note Text: PULM FUNCTION SMARTBLOCK: Provider: Mike Presley MD Spirometry: 1 DLCO: 1 LV - Box: 1C[facility] History and physical note* Elder Galan, POSTMASTER.[employer] - 08/29/2023 11:00 AM EDT COLON AND [...] of treatment plan: high documented in this encounterFisher[facility]10-13-2023 NoteHNO ID: [id number] Author: Marshal Vasquez RT(R) Service: ? Author [...] BY: RT Tammy(R) August 29, 2023 9:10 [facility]10-13-2023 History of Present illness Narrative* Heidi Menard MD - 08/29/2023 10:00 AM EDT Images from the original note were not included. Ms. Waddell is a 63 year old female who presents to the [facility] [place]. 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 Hobbies:Biking Vacation: [place], [place] No significant exposure history except local [...] MULTIVITAMIN TAB^Take one(1) tablet daily.^Disp: ^Rfl: 0 [id number]-FISH OIL-L.CASEI ORAL^Take by mouth once daily.^Disp: ^Rfl: [...] personally reviewed by me Data Reviewed from [facility] (in addition to that noted [...] MD Pulmonary and Critical Care Fellow [facility] [place] Staff note: I have personally interviewed and [...] Hilton Adame MD 08/29/2023 documented in this encounterFisher[facility]10-13-2023 History of Present illness Narrative* Sveta Roman RRT - 08/29/2023 9:52 AM EDT PULM FUNCTION SMARTBLOCK: Provider: Mike Presley MD Spirometry: 1 DLCO: 1 LV - Box: 1 documented in this encounterFisher[facility]10-13-2023 History of Present illness Narrative* Marshal Vasquez [...] 29, 2023 9:10 AM documented in this encounterFisher-[facility] Center10-10-2023 NoteHNO ID: [id number] Author: Gilberto Beth Service: ? Author Type: ? Type: Progress Notes Filed: 08/26/2023 4:28 PM Note Text: [place] to pair w dlco/lv [facility] History of Present illness Narrative* Gilberto Beth - 08/26/2023 4:16 PM EDT [place] to pair w dlco/lv on upcoming f/u visit documented in this encounterFisher-[facility]itus [facility] Center10-06-2023 NoteHNO ID: [id number] Author: Nuvia Grewal RT(R) Service: Radiology Author Type: Routing Machine Operator Type: Progress Notes Filed: 08/22/2023 8:34 AM [...] BY: DAVID Ann) August 22, 2023 8:33 AMSan Juan [id number] History of Present illness Narrative* Nuvia Grewal [...] 22, 2023 8:33 AM documented in this encounterFisher[facility]09-18-2023 Evaluation note* Encounter Date Diagnosis Assessment Notes [...] symptoms. Will initiate antibiotics and have called [facility]. Since her symptoms developed > 5 days ago, no Paxlovid has been prescribed Jul, Bronchitis, not specified as acute or chronic (ICD-10 - J40) Instructed to use Robitussin or Mucinex for cough, saline or Flonase NS for congestion, Tylenol for pain and fever. [facility] Other 09-05-2023 Miscellaneous Notes* Telephone Encounter - Divya Karimi - 07/22/2023 3:17 PM EDT Isabel Waddell accepts 09/01 and 09/02 dates for preop and surgery documented in this encounterFisher[facility]09-05-2023 Miscellaneous Notes* Telephone Encounter - Enid Baker - 07/22/2023 2:48 PM EDT [phone] Patient calling to reschedule her EUA. documented in this encounterFisher-[facility] Center08-22-2023 Evaluation note* Encounter Date Diagnosis Assessment Notes Treatment Notes Treatment Clinical Notes Jun, SHERIF (generalized anxiety disorder) (ICD-10 - F41.1) [facility] Other 08-18-2023 History and physical note* South [...] reports regular bowel movements. 03/05/23 Juan Manuel Mednia, [employer]: Isabel Waddell is a 62 year old [...] 150 mg by mouth daily at bedtime. [id number]-FISH OIL-L.CASEI ORAL Take by mouth once daily. [...] Documents Reviewed/ordered: Review of prior notes from [employer]Y PLAN SALES AGENT/ON[employer], pulmonary medicine Review of prior operative reports [...] of treatment plan: high documented in this encounterFisher-[facility] Center08-11-2023 NoteHNO ID: [id number] Author: Heidi Menard MD Service: ? Author Type: Fellow Type: Progress Notes Filed: 06/29/2023 8:14 AM Note Text: Ms. Waddell is a 63 year old female who presents to the [facility] [place]. Consultation requested by Self. 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 Silica: No significant exposure. Gosper: No significant exposure. Organic HP antigen: No [...] Rectal, Enteric Tube, Stom (more content not included)...[facility]08-11-2023 NoteHNO ID: [id number] Author: Dayan Marley, FAMILIA Service: ? Author Type: Registered Resp Therapist Type: Progress Notes Filed: 06/27/2023 10:27 AM Note Text: PULM FUNCTION SMARTBLOCK: Provider: Pedro Rodarte MD Spirometry: 1 System: 3 - [id number] [facility]als [facility]08-11-2023 History of Present illness Narrative* Heidi Menard MD - 06/27/2023 10:29 AM EDT Images from the original note were not included. Ms. Waddell is a 63 year old female who presents to the [facility] [place]. Consultation requested by Self. 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 Silica: No significant exposure. Gosper: No significant exposure. Organic HP antigen: No [...] 150 mg by mouth daily at bedtime. [id number]-MQG-FISH OIL-L.CASEI ORAL Take by mouth once daily. [...] personally reviewed by me Data Reviewed from [facility] (in addition to that noted [...] MD Pulmonary and Critical Care Fellow [facility] [place] STAFF ATTENDING NOTE I have personally interviewed [...] Mike Thompson MD 06/29/2023 documented in this encounterFisher-[facility]08-11-2023 History of Present illness Narrative* Dayan Marley RRT - 06/27/2023 10:26 AM EDT PULM FUNCTION SMARTBLOCK: Provider: Pedro Rodarte MD Spirometry: 1 System: 3 - [id number] documented in this encounterFisher-[facility] Center07-07-2023 Evaluation note* Encounter Date Diagnosis Assessment Notes [...] and feet daily for blisters and ulcerations. [facility] Other 06-27-2023 Evaluation note* Encounter Date Diagnosis Assessment Notes Treatment Notes Treatment Clinical Notes Apr, History of total right hip replacement (ICD-10 - Z96.641) [facility] Other 06-07-2023 Evaluation note* Encounter Date Diagnosis [...] F41.1) Healthy diet, exercise and keep active [facility] Other 2023 Evaluation note* Encounter Date Diagnosis Assessment Notes Treatment Notes Treatment Clinical Notes March, Mild intermittent asthma without complication (ICD-10 - J45.20) [facility] Other 05-05-2023 Evaluation note* Encounter Date Diagnosis Assessment Notes Treatment Notes Treatment Clinical Notes March, Dyspnea on exertion (ICD-10 - R06.09) [facility] Other 04-24-2023 Evaluation note* Encounter Date Diagnosis Assessment Notes Treatment Notes Treatment Clinical Notes Feb, Shortness of breath (ICD-10 - R06.02) Feb, Subacute cough (ICD-10 - R05.2) [facility] Other 04-19-2023 Instructions* Patient Instructions* Juan Manuel Medina APRN.[employer] - 03/05/2023 9:47 AM EDT Images from the original note were not included. Thank you for seeing me in clinic today. As we discussed, my recommendations are as follows: 1.Colonoscopy If you have any questions about the above treatment plan, please do not hesitate to call the officeor send me a Frengot message. Bowel Preparation Instructions for: Miralax-Gatorade Preparations [...] If you do not have a responsible wrecking car driver (family member or friend) withyou to take you home, your exam cannot be done with sedation and will be cancelled. Please bring a list of all of your current medications, including any Gdmc-grr-Hxpheui medications with you. Medications If you take [...] your exam. 2 10/2019 documented in this encounterFisher[facility]04-19-2023 History and physical note * Juan Manuel [...] Abs Lymph 1.00 - 4.00 k/uL 1.31 Troup% % 11.1 Abs Troup <0.87 k/uL 0.50 Eosin% % 3.1 Abs [...] 150 mg by mouth daily at bedtime. [id number]-FISH OIL-L.CASEI ORAL Take by mouth once daily. [...] -radiation proctitis?? This note was dictated using Client Outlook speech recognition software and may contain some errors that were a result of the program not accurately transcribing what was dictated. Juan Manuel Medina APRN.MONSERRAT documented in this encounterFisher-[facility]itus [facility] Center03-10-2023 Evaluation note* Encounter Date Diagnosis Assessment Notes Treatment Notes Treatment Clinical Notes Jan, Acute bronchitis due to other specified organisms (ICD-10 - J20.8) Instructed to use Robitussin or Mucinex for cough, saline or Flonase NS for congestion, Tylenol for pain and fever. [facility] Other 03-06-2023 Evaluation note* Encounter Date Diagnosis [...] weeks for the cough to go away [facility] Other 02-17-2023 NoteHNO ID: [id number] Author: Henry Ramos MD Service: ? Author Type: Physician Type: Progress Notes Filed: 01/12/2023 11:27 PM Note Text: Gynecologic Oncology [facility] Follow up visit Date of service: [...] differentiation, FIGO grade 2. Neg LVSI, 13% CO pT1a (IA): Tumor limited to endometrium or invades less than 1/2 of the myometrium 05/25/2021 Vaginal biopsy Vagina, biopsy - Consistent with endometrioid adenocarcinoma (see comment). GZ/ka 05/28/2021 COMMENT The tumor cells are diffusely and strongly positive for immunohistochemical stain for Bitely 8, supporting the above diagnosis. The patient [...] 150 mg by mouth daily at bedtime. [id number]-TGA-AQC-FISH OIL-L.CASEI ORAL Take by mouth once daily. Lactobac no.41/Bifidobact no.7 (PROBIOTIC-10 ORAL) Take by mouth once daily. MULTIVITAMIN TAB Take (more content not included)...[facility] 01-03-2023 History of Present illness Narrative* Henry Ramos MD - 01/03/2023 3:20 PM EST Gynecologic Oncology [facility] Follow up visit Date of service: [...] differentiation, FIGO grade 2. Neg LVSI, 13% CO pT1a (IA): Tumor limited to endometrium or invades less than 1/2 of the myometrium 05/25/2021 Vaginal biopsy Vagina, biopsy - Consistent with endometrioid adenocarcinoma (see comment). GZ/fiorella 05/28/2021 COMMENT The tumor cells are diffusely and strongly positive for immunohistochemical stain for Bitely 8, supporting the above diagnosis. The patient [...] 150 mg by mouth daily at bedtime. [id number]-LUE-UFM-FISH OIL-L.CASEI ORAL Take by mouth once daily. [...] improving. She has a trip planned to [facility] next week for 10 days. PHYSICAL EXAM: [...] or swelling. Deep tendon reflexes are present Department Coordinator for exam: Gurpreet Villarreal APRN.CNP RESULTS: CA [...] symptoms - Referral to Dr. Sita Naidu [facility] - Mammogram gets this done locally, will review with PCP - Colonoscopy due, will review with PCP 05/30/2021- Dee Dee Carter APRN.[employer] (distance health visit) 61 yo female with [...] her today already. Test vaginal lesion for ER/IA receptors See me September 19 for post [...] hyperthyroidism, advised follow up with PCP and Human Resources Analyst. Ernesto Chacko APRN.[employer] 03/13/2022 Recurrent Endometrial cancer with recurrence in [...] ferritin. Recommend she start following with a [facility] lamp decorator for her rectal bleeding. We will assistwith [...] 03, 2023 4:37 PM documented in this encounterFisher-[facility] Center02-08-2023 Miscellaneous Notes* Telephone Encounter - Aretha Pena [...] at 12/25/2022 12:04 PM EST ----- Regarding: [place] Patient bleeding and clotting almost daily since Colonoscopy. September was the Colonoscopy. Concerned and would like to know if she should schedule an appointment. [phone] documented in this encounterFisher-Titus [facility] Center11-10-2022 Nurse Note* Francisca Gómez RN - 09/26/2022 [...] Signed By: Francisca Gómez RN * Isaura aMo RN - 09/26/2022 11:13 AM EST PRE OP LEARNING ASSESSMENT PROCEDURE/SURGERY: GI PROCEDURES: Colonoscopy READINESS TO LEARN COGNITIVE ABILITY: Alert and oriented MOTIVATION TO LEARN: Interested FAMILY SUPPORT: None - Unavailable/disinterested PATIENT LEARNS BEST BY: Individual Instruction FACTORS AFFECTING LEARNING: None PHYSICAL LIMITATIONS AFFECTING LEARNING: None Electronically Signed By: Isaura Mao RN In Department: GASTROENTEROLOGY documented in this encounterFisher-Titus Medical Center11-10-2022 Miscellaneous Notes* Sedation Documentation - Aretha Deluna RN - 09/26/2022 12:00 PM EST Grounding pad placed at right flank. Skin Intact. LOT#[id number]. documented in this encounterFisher-Titus Medical Center11-03-2022 Miscellaneous Notes* Telephone Encounter - Kelly Ch MA - 09/19/2022 3:49 PM EDT Attempted to reach the patient at the contact number that they provided [phone] (home) . Unable to speak with patient so without identifying the patient the following information was left on their voice mail: Date of procedure, location and report time Prep instructions A message was left informing the patient/patient personal financial representative they must have a responsible adult [...] Number to call with questions or concerns [phone] Number to call to cancel their procedure [phone] Kelly Ch MA documented in this encounterFisher-Titus Medical Center09-21-2022 Instructions* Patient Instructions* Ernesto Chacko APRN.MONSERRAT - [...] If you do not have a responsible wrecking car driver (family member or friend) with you [...] your exam. 2 10/2019 documented in this encounterFisher-[facility] Center09-21-2022 History of Present illness Narrative* Henry Ramos MD - 08/07/2022 3:20 PM EDT Gynecologic Oncology [facility] Follow up visit Date of service: [...] differentiation, FIGO grade 2. Neg LVSI, 13% CO pT1a (IA): Tumor limited to endometrium or invades less than 1/2 of the myometrium 05/25/2021 Vaginal biopsy Vagina, biopsy - Consistent with endometrioid adenocarcinoma (see comment). GZ/ka 05/28/2021 COMMENT The tumor cells are diffusely and strongly positive for immunohistochemical stain for Bitely 8, supporting the above diagnosis. The patient [...] 150 mg by mouth daily at bedtime. [id number]-FISH OIL-L.CASEI ORAL Take by mouth once daily. [...] groin. LOWER EXTREMITIES: No swelling or edema. Department Coordinator for exam: Promise Mclaughlin MA RESULTS: 05/25/2021 - VAGINAL BIOPSY Vagina, biopsy - Consistent with endometrioid adenocarcinoma (see comment). GZ/ka 05/28/2021 COMMENT The tumor cells are diffusely and strongly positive for immunohistochemical stain for Bitely 8, supporting the above diagnosis. The patient [...] dedicated report for findings in the abdomen [employer] (topogram) images: None CA 125 (U/mL) Date Value 12/13/2021 9 06/04/2021 8 07/12/2019 15 ASSESSMENT & PLAN: 05/25/2021-Dee Dee Carter APRN.[employer] [place] endometrioid type endometrial adenocarcinoma, FIGO grade [...] symptoms - Referral to Dr. Sita Naidu [facility] - Mammogram gets this done locally, will review with PCP - Colonoscopy due, will review with PCP 05/30/2021- Dee Dee Carter APRN.[employer] (distance health visit) 61 yo female with [...] her today already. Test vaginal lesion for ER/IA receptors See me September 19 for post [...] hyperthyroidism, advised follow up with PCP and Human Resources Analyst. Ernesto Chacko APRN.[employer] 03/13/2022 Recurrent Endometrial cancer with recurrence in [...] 07, 2022 4:19 PM [facility] of Present illness Narrative* Henry Ramos MD - 03/13/2022 2:50 PM EDT Gynecologic Oncology [facility] Follow up visit Date of service: [...] differentiation, FIGO grade 2. Neg LVSI, 13% CO pT1a (IA): Tumor limited to endometrium or invades less than 1/2 of the myometrium 05/25/2021 Vaginal biopsy Vagina, biopsy - Consistent with endometrioid adenocarcinoma (see comment). GZ/ka 05/28/2021 COMMENT The tumor cells are diffusely and strongly positive for immunohistochemical stain for Bitely 8, supporting the above diagnosis. The patient [...] 150 mg by mouth daily at bedtime. [id number] OIL-L.CASEI ORAL Take by mouth once daily. [...] absent LOWER EXTREMITIES: No swelling or edema. Department Coordinator for exam: Mod RESULTS: 05/25/2021 - VAGINAL BIOPSY Vagina, biopsy - Consistent with endometrioid adenocarcinoma (see comment). GZ/ka 05/28/2021 COMMENT The tumor cells are diffusely and strongly positive for immunohistochemical stain for Bitely 8, supporting the above diagnosis. The patient [...] dedicated report for findings in the abdomen [employer] (topogram) images: None CA 125 (U/mL) Date Value 12/13/2021 9 06/04/2021 8 07/12/2019 15 ASSESSMENT & PLAN: 05/25/2021-Dee Dee Cartre APRN.[employer] [place] endometrioid type endometrial adenocarcinoma, FIGO grade [...] symptoms - Referral to Dr. Sita Naidu [facility] - Mammogram gets this done locally, will review with PCP - Colonoscopy due, will review with PCP 05/30/2021- Dee Dee Carter APRN.[employer] (distance health visit) 61 yo female with [...] her today already. Test vaginal lesion for ER/IA receptors See me September 19 for post [...] hyperthyroidism, advised follow up with PCP and Human Resources Analyst. Ernesto Chacko APRN.[employer] 03/13/2022 Recurrent Endometrial cancer with recurrence in [...] Past Histories independently gathered by the clinical it desktop support technician and the remaining scribed note accurately describes my personal service to the patient. [facility]* Diagnosis Dizziness- Primary Dizziness and giddiness Dehydration documented in this encounter [employer] Phone: evaluation note* Diagnosis Recurrent carcinoma of endometrium (HCC)- Primary Malignant neoplasm of corpus uteri, except isthmus Vaginal atrophy Postmenopausal atrophic vaginitis Foreshortening of vagina documented in this encounter [facility]* Diagnosis Recurrent carcinoma of endometrium (HCC)- Primary Malignant neoplasm of corpus uteri, except isthmus Radiation proctitis Other specified disorder of rectum and anus Foreshortening of vagina Endometrial cancer (HCC) Malignant neoplasm of corpus uteri, except isthmus Vaginal atrophy Postmenopausal atrophic vaginitis Rectal bleeding Hemorrhage of rectum and anus documented in this encounter [facility]* Diagnosis History of thyroid disease- Primary Personal history of other endocrine, metabolic, and immunity disorders Rectal bleeding Hemorrhage of rectum and anus documented in this encounter [facility]* Diagnosis Recurrent carcinoma of endometrium (HCC)- Primary Malignant neoplasm of corpus uteri, except isthmus Radiation proctitis Other specified disorder of rectum and anus Blood per rectum Hemorrhage of rectum and anus documented in this encounter [facility] noteNo [employer] [facility] Other Evaluation note* Diagnosis Rectal bleeding- Primary Hemorrhage of rectum and anus documented in this encounter [facility] note* Diagnosis Radiation proctitis- Primary Other specified disorder of rectum and anus documented in this encounter [facility] note* Diagnosis Dyspnea, unspecified type- Primary documented in this encounter [facility] note* Diagnosis 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) documented in this encounter [facility] note* Diagnosis Radiation proctitis- Primary Other specified disorder of rectum and anus documented in this encounter [facility] note* Diagnosis Endometrial cancer (HCC)- Primary Malignant neoplasm of corpus uteri, except isthmus Radiation proctitis Other specified disorder of rectum and anus Radiation proctitis Other specified disorder of rectum and anus documented in this encounter [facility] note* Diagnosis Radiation proctitis- Primary Other specified disorder of rectum and anus documented in this encounter [facility] note* Diagnosis ILD (interstitial lung disease) (HCC)- Primary Postinflammatory pulmonary fibrosis Radiation proctitis Other specified disorder of rectum and anus documented in this encounter [facility] note* Diagnosis ILD (interstitial lung disease) (HCC) Postinflammatory pulmonary fibrosis Radiation proctitis Other specified disorder of rectum and anus documented in this encounter [facility] note* Diagnosis Interstitial pulmonary disease (HCC) Postinflammatory pulmonary fibrosis Radiation proctitis Other specified disorder of rectum and anus documented in this encounter [facility] note* Diagnosis Dyspnea and respiratory abnormalities- Primary Other dyspnea and respiratory abnormality Calcified nodule Localized superficial swelling, mass, or lump Iron deficiency anemia due to chronic blood loss Iron deficiency anemia secondary to blood loss (chronic) Radiation proctitis Other specified disorder of rectum and anus documented in this encounter [facility]* Diagnosis Dyspnea, unspecified type Radiation proctitis Other specified disorder of rectum and anus documented in this encounter [facility] note* Diagnosis Pre-op evaluation- Primary Preoperative examination, unspecified Radiation proctitis Other specified disorder of rectum and anus documented in this encounter [facility] note* Diagnosis Interstitial pulmonary disease (HCC) Postinflammatory pulmonary fibrosis documented in this encounter [facility] note* Diagnosis Radiation proctitis- Primary [...] right thumb excision of trapezi um 09/14/2020 [employer] Other [employer] Surveillance general Narrative - Reported* Type Description Date Medical History menopause Medical History endometrial cancer hx Surgical History Bilateral Knee Scope Surgical History Bilateral Shoulder Scope Surgical History Bilateral Carpal Tunnel Surgical History x 3 Surgical History Pituatary Tumor Surgical History hysterectomy Surgical History right thumb excision of trapezi um 09/14/2020 Hospitalization History see surgical history [facility] Other [employer] Surveillance general Narrative - Reported* Type Description Date Medical History menopause Medical History endometrial cancer hx Medical History Dilated Cardiomyopathy Surgical History Bilateral Knee Scope Surgical History Bilateral Shoulder Scope Surgical History Bilateral Carpal Tunnel Surgical History x 3 Surgical History Pituatary Tumor Surgical History hysterectomy Surgical History right thumb excision of trapezi um 09/14/2020 Hospitalization History see surgical history [facility] Other [employer] Surveillance general Narrative - Reported* Type Description Date Medical History menopause Medical History endometrial cancer hx Medical History Dilated Cardiomyopathy Surgical History Bilateral Knee Scope Surgical History Bilateral Shoulder Scope Surgical History Bilateral Carpal Tunnel Surgical History x 3 Surgical History Pituatary Tumor Surgical History hysterectomy Surgical History right thumb excision of trapezi um 09/14/2020 Surgical History Sigmoidoscopy 08/2023 Hospitalization History see surgical history [facility] Other [facility] general Narrative - Reported* Type Description Date [...] Sigmoidoscopy 08/2023 Hospitalization History see surgical history [facility] Other Hospital Discharge instructions* Attachments The following attachments cannot be sent through Care Everywhere. * Dehydration (Maltese) * Oral Rehydration (Maltese) documented in this encounterPetLove Phone: reason for referral (narrative)* Outpatient Procedure (Routine) - Closed Specialty Diagnoses / Procedures Referred By Contac t Referred To Contact [facility] Diagnoses Rectal bleeding Procedures COLONOSCOPY SCREENING COLONOSCOPY FLX DX W/COLLJ SPEC WHEN Ernesto Noble APRN.CNP [address] [place] [address] [address] Referral ID Status Reason Start Date Expiration Date V isits Requested Visits Authorized [id number] Closed Auto-Generate d Referral 08/07/2022 08/07/2023 1 1 [facility] for referral (narrative)* Outpatient Procedure (Routine) - Pending Review Specialty Diagnoses / Procedures Referred By Contac t Referred To Contact [facility] Diagnoses Rectal bleeding Procedures COLONOSCOPY (THERAPEUTIC) COLONOSCOPY FLX ABLATION TUMOR POLYP/OTHER Juan Manuel Mendoza APRN.[employer] [address] [place] [address] [place] [address] [place] [address] Referral ID Status Reason Start Date Expiration Date Visits Requested Visits Authorized [id number] Pending Review Auto-Generat ed Referral 03/05/2023 03/05/2024 1 1 [facility] for referral (narrative)* Outpatient Procedure (Routine) - Authorized Specialty Diagnoses / Procedures Referred By Contac t Referred To Contact [facility] Diagnoses Other secondary pulmonary hypertension (HCC) Procedures ECHO ECHO TTHRC R-T 2D W/WOM-MODE COMPL SPEC&COLR D Mike Presley MD [address] [place] [address] [address] Referral ID Status Reason Start Date Expiration Date Visits Requested Visits Authorized [id number] Authorized Auto-Generat ed Referral 06/27/2023 06/26/2024 1 1 * Diagnostic Procedure Only (Routine) - Pending Review Specialty Diagnoses / Procedures Referred By Kelly alberts Referred To [facility] MOLECULAR & FUNCTIONAL IMAGING Diagnoses Other secondary pulmonary hypertension (HCC) Procedures NM LUNG VENT / PERF VQ PULMONARY VENTILATION & PERFUSION IMAGING Mike Presley MD [address], [place] [address] Molecular & Functional Imaging [address] [place] [address] Referral ID Status Reason Start Date Expiration Date Visits Requested Visits Authorized [id number] Pending Review Auto-Generat ed Referral 06/27/2023 07/26/2024 1 1 * Outpatient Procedure (Routine) - Pending Review Specialty Diagnoses / Procedures Referred By Kelly alberts Referred To [facility] Diagnoses Interstitial pulmonary disease (HCC) Procedures LUNG VOLUMES Mike Presley MD [address] [place] [address] [place] [address] Referral ID Status Reason Start Date Expiration Date Visits Requested Visits Authorized [id number] Pending Review Auto-Generat ed Referral 06/27/2023 07/26/2024 1 1 * Outpatient Procedure (Routine) - Authorized Specialty Diagnoses / Procedures Referred By Kelly alberts Referred To [facility] Diagnoses Interstitial pulmonary disease (HCC) Procedures LUNG DIFFUSION CAPACITY (DLCO) DIFFUSING CAPACITY Mike Presley MD [address] [place] [address] [address] Referral ID Status Reason Start Date Expiration Date Visits Requested Visits Authorized [id number] Authorized Auto-Generat ed Referral 06/27/2023 07/26/2024 1 1 * MRI/CT (Routine) - Authorized Specialty Diagnoses / Procedures Referred By Kelly t Referred To Contact CT IMAGING Diagnoses Interstitial pulmonary disease (HCC) Procedures CT CHEST WO IVCON DIAGNOSTIC COMPUTED TOMOGRAPHY THORAX W/O CNTRST Mike Presley MD [address] [place] [address] [address] [address] Referral ID Status Reason Start Date Expiration Date Visits Requested Visits Authorized [id number] Authorized Auto-Generat ed Referral 06/27/2023 07/26/2024 1 1 [facility] for referral (narrative)* Outpatient Procedure (Routine) - Authorized Specialty Diagnoses / Procedures Referred By Kelly alberts Referred To Contact [facility] Diagnoses ILD (interstitial lung disease) (HCC) Procedures SPIROMETRY BASELINE ONLY SPMTRY W/VC EXPIRATORY BERNIE W/WO MXML VOL VNTJ Mike Presley MD [address] [place] [address] [facility] [place] [address] [place] [address] Referral ID Status Reason Start Date Expiration Date Visits Requested Visits Authorized [id number] Authorized Auto-Generat ed Referral 09/24/2024 1 1 [facility] for visit Narrative* Outpatient Procedure (Routine) - Closed Specialty Diagnoses / Procedures Referred By Kelly t Referred To Contact [facility] Diagnoses Rectal bleeding Procedures COLONOSCOPY SCREENING COLONOSCOPY FLX DX W/COLLJ SPEC WHEN PFRMD Ernesto Chacko APRN.[employer] [address] [place] [address] [facility] [place] [address] [place] [address] Referral ID Status Reason Start Date Expiration Date V isits Requested Visits Authorized [id number] Closed Auto-Generate d Referral 08/07/2022 08/07/2023 1 1 [facility] Summary Purpose Family History No Family History Records FoundNo Family History Records FoundNo Family History Records FoundNo Family History Records FoundNo Family History Records FoundNo Family History Records FoundNo Family History Records Found Advance Directives Documents on File Type Date Recorded 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 Advance Directive(s) 08/12/2019 10:47 AM Advance Directive(s) 07/28/2019 9:20 AM Documents on File Type Date Recorded 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 Advance Directive(s) 07/28/2019 9:20 AM Documents on File Type Date Recorded 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 Advance Directive(s) 07/28/2019 9:20 AM Reason for Referral Specialty Diagnoses / Procedures Referred By Contac t Referred To Contact Gastroenterology Diagnoses Rectal bleeding Procedures CONSULT TO GASTROENTEROLOGY OFFICE/OUTPATIENT [facility] 60-74 MINUTES Ernesto Chacko APRN.[employer] [address] [place] [address] Referral ID Status Reason Start Date Expiration Date Visits Requested Visits Authorized [id number] Authorized PCP Requested Referral 08/07/2022 08/07/2023 1 1 Specialty Diagnoses / Procedures Referred By Contac t Referred To Contact [facility] Diagnoses Rectal bleeding Procedures COLONOSCOPY SCREENING COLONOSCOPY FLX DX W/COLLJ SPEC WHEN PFRMD Ernesto Chacko APRN.[employer] [address] [place] [id number] [facility] [place] [address] [place], [place] [id number] Referral ID Status Reason Start Date Expiration Date Visits Requested Visits Authorized [id number] Pending Review Auto-Generat ed Referral 08/07/2022 08/07/2023 1 1 Specialty Diagnoses / Procedures Referred By Contac t Referred To Contact CT IMAGING Diagnoses Interstitial pulmonary disease (HCC) Procedures CT CHEST WO IVCON DIAGNOSTIC COMPUTED TOMOGRAPHY THORAX W/O CNTRST Mike Presley MD [address] [place] [address] Ct Imaging [place] [address] Referral ID Status Reason Start Date Expiration Date V isits Requested Visits Authorized [id number] Closed Auto-Generate d Referral 06/27/2023 07/26/2024 1 1 Reason Iron deficiency anem ia Diagnosis 1 Iron deficiency anem ia due to chronic blood loss (D50.0) Referral Organization [facility] Keira hahn Referring Provider First Name Roland Referring Provider Last Name Maggie Referring Provider Specialty Internal Me dicine Referred Organization [facility] Referred Provider NGA TATUM Referred Address [address], [place],[address] Referred Provider Specialty Hematology Referral Priority Routine General Notes Mrs. Waddell is being r eferred for symptomatic iron deficiency anemia. 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 She has completed endoscopic treatment for her chronic bleeding and has received 2 units of PRBC while [facility]. I am referring Mrs. [...] DATE CREATED AUTHOR AUTHOR'S ORGANIZ ATION 03/20/2022 [facility] DATE CREATED AUTHOR AUTHOR'S ORGANIZ ATION 03/28/2023 [facility] DATE CREATED AUTHOR AUTHOR'S ORGANIZ ATION 08/25/2023 [facility] DATE CREATED AUTHOR AUTHOR'S ORGANIZ ATION 10/04/2023 [facility] DATE CREATED AUTHOR AUTHOR'S ORGANIZ ATION 10/09/2023 [facility] Reason for Visit (unrecogniz ed section and [...] NEW HIGH MDM 60-74 MINUTES Ernesto Chacko APRN.[employer] [address] [place] [address] Referral ID Status Reason Start Date Expiration Date V isits Requested Visits Authorized [id number] Closed PCP Requested Referral 08/07/2022 08/07/2023 1 1 Reason Comments Spirometry Specialty Diagnoses / Procedures Referred By Kelly alberts Referred To Contact [facility] Diagnoses Dyspnea, unspecified type Procedures SPIROMETRY WITH DILATOR IF OBSTRUCTED BRNCDILAT RSPSE SPMTRY PRE&POST-BRNCDILAT ADMN Pedro Rodarte MD [address] [place] [address] [facility] [place] [address] [place] [address] Referral ID Status Reason Start Date Expiration Date V isits Requested Visits Authorized [id number] Closed Auto-Generate d Referral 05/23/2023 06/21/2024 1 1 Reason Comments New Reason Comments New Radiation proctitis Specialty Diagnoses / Procedures Referred By Kelly t Referred To Contact Colon and Rectal Surgery Diagnoses Radiation proctitis Procedures CONSULT TO COLO-RECTAL SURGERY OFFICE/OUTPATIENT NEW HIGH MDM 60-74 MINUTES Gurpreet Villarreal, POSTMASTER[employer] [address] [place] [address] [place] DO [address] [place] [address] Referral ID Status Reason Start Date Expiration Date V isits Requested Visits Authorized [id number] Closed PCP Requested Referral 05/16/2023 05/15/2024 1 1 Reason Comments Patient Update Specialty Diagnoses / Procedures Referred By Contac t Referred To Contact [facility] Diagnoses ILD (interstitial lung disease) (HCC) Procedures SPIROMETRY BASELINE ONLY SPMTRY W/VC EXPIRATORY BERNIE W/WO MXML VOL VNTJ Mike Presley MD [address] [place] [address] [place] [address] Referral ID Status Reason Start Date Expiration Date V isits Requested Visits Authorized [id number] Closed Auto-Generate d Referral 08/26/2023 09/24/2024 1 1 Specialty Diagnoses / Procedures Referred By Contac t Referred To Contact [facility] Diagnoses Interstitial pulmonary disease (HCC) Procedures LUNG DIFFUSION CAPACITY (DLCO) DIFFUSING CAPACITY Mike Presley MD [address] [place] [address] [place] [address] Referral ID Status Reason Start Date Expiration Date V isits Requested Visits Authorized [id number] Closed Auto-Generate d Referral 06/27/2023 07/26/2024 1 1 Reason Comments Radio Gen A21 Reason Comments Pre-Op Exam Specialty Diagnoses / Procedures Referred By Contac t Referred To Contact CT IMAGING Diagnoses Interstitial pulmonary disease (HCC) Procedures CT CHEST WO IVCON DIAGNOSTIC COMPUTED TOMOGRAPHY THORAX W/O CNTRST Mike Presley MD [address] [place] [address] [address] [facility] Referral ID Status Reason Start Date Expiration Date V isits Requested Visits Authorized [id number] Closed Auto-Generate d Referral 06/27/2023 07/26/2024 1 [...] or prosecute any alcohol or drug abuse patient.[facility] the event this information is protected by the Federal Confidentiality of Alcohol and Drug Abuse Patient Records regulations: The Federal rules restrict any use of the information to criminally investigate or prosecute any alcohol or drug abuse patient.[facility] the event this information is protected by the Federal Confidentiality of Alcohol and Drug Abuse Patient Records regulations: The Federal rules restrict any use of the information to criminally investigate or prosecute any alcohol or drug abuse patient.[facility] the event this information is protected by the Federal Confidentiality of Alcohol and Drug Abuse Patient Records regulations: The Federal rules restrict any use of the information to criminally investigate or prosecute any alcohol or drug abuse patient.[facility] the event this information is protected by the Federal Confidentiality of Alcohol and Drug Abuse Patient Records regulations: The Federal rules restrict any use of the information to criminally investigate or prosecute any alcohol or drug abuse patient.[facility] the event this information is protected by the Federal Confidentiality of Alcohol and Drug Abuse Patient Records regulations: The Federal rules restrict any use of the information to criminally investigate or prosecute any alcohol or drug abuse patient.[facility] the event this information is protected by the Federal Confidentiality of Alcohol and Drug Abuse Patient Records regulations: The Federal rules restrict any use of the information to criminally investigate or prosecute any alcohol or drug abuse patient.[facility] the event this information is protected by the Federal Confidentiality of Alcohol and Drug Abuse Patient Records regulations: The Federal rules restrict any use of the information to criminally investigate or prosecute any alcohol or drug abuse patient.[facility] the event this information is protected by the Federal Confidentiality of Alcohol and Drug Abuse Patient Records regulations: The Federal rules restrict any use of the information to criminally investigate or prosecute any alcohol or drug abuse patient.[facility] the event this information is protected by the Federal Confidentiality of Alcohol and Drug Abuse Patient Records regulations: The Federal rules restrict any use of the information to criminally investigate or prosecute any alcohol or drug abuse patient.[facility] the event this information is protected by the Federal Confidentiality of Alcohol and Drug Abuse Patient Records regulations: The Federal rules restrict any use of the information to criminally investigate or prosecute any alcohol or drug abuse patient.[facility] CenterIn the event this information is protected by the Federal Confidentiality of Alcohol and Drug Abuse Patient Records regulations: The Federal rules restrict any use of the information to criminally investigate or prosecute any alcohol or drug abuse patient.[facility] CenterIn the event this information is protected by the Federal Confidentiality of Alcohol and Drug Abuse Patient Records regulations: The Federal rules restrict any use of the information to criminally investigate or prosecute any alcohol or drug abuse patient.[facility] Center[facility] the event this information is protected by the Federal Confidentiality of Alcohol and Drug Abuse Patient Records regulations: The Federal rules restrict any use of the information to criminally investigate or prosecute any alcohol or drug abuse patient.[facility] CenterIn the event this information is protected by the Federal Confidentiality of Alcohol and Drug Abuse Patient Records regulations: The Federal rules restrict any use of the information to criminally investigate or prosecute any alcohol or drug abuse patient.[facility] CenterIn the event this information is protected by the Federal Confidentiality of Alcohol and Drug Abuse Patient Records regulations: The Federal rules restrict any use of the information to criminally investigate or prosecute any alcohol or drug abuse patient.[facility] CenterIn the event this information is protected by the Federal Confidentiality of Alcohol and Drug Abuse Patient Records regulations: The Federal rules restrict any use of the information to criminally investigate or prosecute any alcohol or drug abuse patient.[facility] CenterIn the event this information is protected by the Federal Confidentiality of Alcohol and Drug Abuse Patient Records regulations: The Federal rules restrict any use of the information to criminally investigate or prosecute any alcohol or drug abuse patient.[facility] CenterIn the event this information is protected by the Federal Confidentiality of Alcohol and Drug Abuse Patient Records regulations: The Federal rules restrict any use of the information to criminally investigate or prosecute any alcohol or drug abuse patient.[facility] CenterIn the event this information is protected by the Federal Confidentiality of Alcohol and Drug Abuse Patient Records regulations: The Federal rules restrict any use of the information to criminally investigate or prosecute any alcohol or drug abuse patient.[facility] CenterIn the event this information is protected by the Federal Confidentiality of Alcohol and Drug Abuse Patient Records regulations: The Federal rules restrict any use of the information to criminally investigate or prosecute any alcohol or drug abuse patient.[facility] CenterIn the event this information is protected by the Federal Confidentiality of Alcohol and Drug Abuse Patient Records regulations: The Federal rules restrict any use of the information to criminally investigate or prosecute any alcohol or drug abuse patient.[facility] CenterIn the event this information is protected by the Federal Confidentiality of Alcohol and Drug Abuse Patient Records regulations: The Federal rules restrict any use of the information to criminally investigate or prosecute any alcohol or drug abuse patient.[facility] CenterIn the event this information is protected by the Federal Confidentiality of Alcohol and Drug Abuse Patient Records regulations: The Federal rules restrict any use of the information to criminally investigate or prosecute any alcohol or drug abuse patient.[facility] Care Teams (unrecognized sec tion and content) Interpretive Naturalist Relationship Specialty Start Date End Date Roland Serrano DO PCP - General 09/21/07 Kizzy Galloway RN Specialty Dietary Worker Radiation Oncology 06/12/21 Interpretive Naturalist Relationship Specialty Start Date End Date Roland Serrano DO PCP - General 09/21/07 [place] [id number] [place] [address] Specialty Dietary Worker Radiation Oncology 06/12/21 Interpretive Naturalist Relationship Specialty Start Date End Date Roland Serrano DO [facility] General 09/21/07 Kizzy G[place]ay [place] [id number] [place] [address] Specialty Dietary Worker Radiation Oncology 06/12/21 Interpretive Naturalist Relationship Specialty Start Date End Date Roland Serrano DO PCP - General 09/21/07 Kizzy Galloway RN [id number] [place] [address] Specialty Dietary Worker Radiation Oncology 06/12/21 Interpretive Naturalist Relationship Specialty Start Date End Date Roland Serrano DO PCP - General 09/21/07 Kizzy Galloway RN [address] [place] [address] Specialty Dietary Worker Radiation Oncology 06/12/21 Interpretive Naturalist Relationship Specialty Start Date End Date Roland Serrano DO PCP - General 09/21/07 Kizzy Galloway RN [address] [place] [address] Specialty Dietary Worker Radiation Oncology 06/12/21 Interpretive Naturalist Relationship Specialty Start Date End Date Roland Serrano DO PCP - General 09/21/07 Kizzy Galloway RN [address] [place] [address] Specialty Dietary Worker Radiation Oncology 06/12/21 Interpretive Naturalist Relationship Specialty Start Date End Date Roland Serrano DO [facility] - General 09/21/07 Kizzy Galloway RN [id number] [place] [address] Specialty Dietary Worker Radiation Oncology 06/12/21 Interpretive Naturalist Relationship Specialty Start Date End Date Roland Serrano DO PCP - General 09/21/07 [place] [id number] [place] [address] Specialty Dietary Worker Radiation Oncology 06/12/21 Interpretive Naturalist Relationship Specialty Start Date End Date Roland Serrano DO PCP - General 09/21/07 Kizzy Galloway RN [address] [place] [address] Specialty Dietary Worker Radiation Oncology 06/12/21 Interpretive Naturalist Relationship Specialty Start Date End Date Roland Serrano DO PCP - General 09/21/07 Kizzy Galloway RN [address] [place] [address] Specialty Dietary Worker Radiation Oncology 06/12/21 Interpretive Naturalist Relationship Specialty Start Date End Date Roland Serrano DO PCP - General 09/21/07 Kizzy Galloway RN [address] [place] [address] 479[address] Specialty Dietary Worker Radiation Oncology 06/12/21 Interpretive Naturalist Relationship Specialty Start Date End Date Roland Serrano DO PCP - General 09/21/07 Kizzy Galloway RN [address] [place] [address] Specialty Dietary Worker Radiation Oncology 06/12/21 Interpretive Naturalist Relationship Specialty Start Date End Date Roland Serrano DO PCP - General 09/21/07 Kizzy Galloway RN [address] [place] [address] Specialty Dietary Worker Radiation Oncology 06/12/21 Interpretive Naturalist Relationship Specialty Start Date End Date Roland Serrano DO [facility] - General 09/21/07 Kizzy Galloway [place] [id number] [place] [address] Specialty Dietary Worker Radiation Oncology 06/12/21 Interpretive Naturalist Relationship Specialty Start Date End Date Roland Serrano DO [facility] 09/21/07 Kizzy Galloway RN [phone] [place] [address] Specialty Dietary Worker Radiation Oncology 06/12/21 Interpretive Naturalist Relationship Specialty Start Date End Date Roland Serrano DO [facility] 09/21/07 Kizzy Galloway RN [address] [place] [address] Specialty Dietary Worker Radiation Oncology 06/12/21 Interpretive Naturalist Relationship Specialty Start Date End Date Roland Serrano DO [facility] 09/21/07 Kizzy Galloway RN [id number] [place] [address] Specialty Dietary Worker Radiation Oncology 06/12/21 Interpretive Naturalist Relationship Specialty Start Date End Date Roland Serrano DO [facility] 09/21/07 Kizzy Galloway RN [phone] [place] [phone] Specialty Dietary Worker Radiation Oncology 06/12/21 FOR RECORDS PERTAINING TO [...] BE BASED ON THE PRIMARY CLINICAL RECORDS. [facility] [employer] [facility]. provides no warranty or guarantee of the accuracy or completeness of information in this document.
[2023-12-16 15:39] LABS: Basophils Percent Auto 0.4 % (0.2-2.0); Eosinophils Absolute Auto 0.2 10^3/uL (0.0-0.7); Hematocrit 39.5 % (36.0-48.0); Hemoglobin 12.7 g/dL (12.0-16.0); Immature Granulocytes Abs Auto 0.01 10^3/uL (0.00-0.03); Immature Granulocytes Pct Auto 0.2 % (0.0-0.5); Lymphocytes Absolute Auto 1.4 10^3/uL (1.2-3.8); Lymphocytes Percent Auto 28.5 % (20.5-60.0); Mean Corpuscular HGB Conc 32.2 g/dL (29.9-35.2); Mean Corpuscular Hemoglobin 27.9 pg (26.7-34.0); Mean Corpuscular Volume 86.8 fL (81.0-99.0); Mean Platelet Volume 9.4 fL (9.5-13.5); Monocytes Absolute Auto 0.5 10^3/uL (0.3-0.8); Monocytes Percent Auto 9.7 % (1.7-12.0); Neutrophils Absolute Auto 2.9 10^3/uL (1.4-6.5); Neutrophils Percent Auto 57.2 % (43.0-75.0); Platelet Count 186 10^3/uL (150-450); Red Blood Count 4.55 10^6/uL (4.20-5.40); Red Cell Distribution Width 17.8 % (11.0-15.0); White Blood Count 5.1 10^3/uL (4.0-11.0)
[2023-12-16 16:22] LABS: Percent Iron Saturation 19.2 %
== END 2023-12-16 15:27 | disposition home or self-care (01) ==
LOC: LAB 15:27
PROVIDERS: PCP Internal Medicine; Visit Provider Internal Medicine Hematology & Oncology
DX: R79.89 Other specified abnormal findings of blood chemistry (principal); D72.819 Decreased white blood cell count, unspecified; D64.9 Anemia, unspecified; D50.9 Iron deficiency anemia, unspecified; K90.9 Intestinal malabsorption, unspecified
CPT/HCPCS: 36415; 80048; 82728; 83540; 83550; 84439; 84443; 84480; 85025

== ENCOUNTER 2023-12-17 13:24 | Outpatient (OUT) | payer BC, SELFPAY ==
--- NOTE | 2023-12-17 13:27 | MM_ITS ---
Patient Name: JOSEPHINE STOVER MR#: [id number] : 1960 Exam Date: 12/17/2023 Ordering Doctor: DR Roland Brown D.O. RADIOLOGY REPORT PROCEDURE: MM TOMOSYNTHESIS SCREENING BI COMPARISON: MG MAMM SCREEN 3D RAGHU CAD, 10/04/2022. MG MAMM SCREEN 3D RAGHU CAD, 06/20/2021. INDICATIONS: Screening Calculator Name NCI Breast Cancer Risk Assessment Tool 5 Year Breast Cancer Risk 1.70% Lifetime Breast Cancer Risk 7.10% Personal Breast Cancer No Personal Ovarian Cancer No Treatments radiation-hysterectomy Family Cancers None LOCATION: [facility] BREAST COMPOSITION: Scattered areas fibroglandular density. FINDINGS: DIAGNOSTIC CATEGORY 1--NEGATIVE. NO CHANGE FROM COMPARISON ASSESSMENT. RIGHT BREAST: No significant suspicious finding. LEFT BREAST: No significant suspicious finding. RECOMMENDATIONS: ROUTINE MAMMOGRAM AND CLINICAL EVALUATION IN 12 MONTHS. PLEASE NOTE: A NORMAL MAMMOGRAM DOES NOT EXCLUDE THE POSSIBILITY OF BREAST CANCER. A CLINICALLY SUSPICIOUS PALPABLE LUMP SHOULD BE BIOPSIED. Dictated by: Chris Escobedo MD on 12/17/2023 at 15:23 Approved by: Chris Escobedo MD on 12/17/2023 at 15:24
--- OUTSIDE RECORDS SUMMARY | 2023-12-17 13:38 | XMS_ITS | CCD ---
Author Name Unknown Address [address] [place] [address] Organization [facility] Care Team Providers Care Publications Designer Name Role Phone Roland Serrano DO Primary [...] physicia Propensity to adverse reactions 8 Comment:Done [employer] Other (6 sources) Allergies Reconciled Propensity to adverse reactions Unknown [employer] Other Medications Current Medications Medication Drug Class(es) Dates Sig (Normalized) Sig (Original) acetaminophen 325 mg / HYDROcodone bitartrate 5 mg oral tablet (8 sources) Opioid Agonist take 1-2 tablets by mouth every six hours as needed HYDROcodone-Aceta minophen 5-325 MG 1-2 tablet as needed Oral every 6 hrs for 7 days Active [id number] 200 actuat albuterol 0.09 mg/actuat metered dose [...] one(1) tablet d aily. Take by mouth. XJYA5-BOJ-JFB-FISH OIL-L.CASEI ORAL (20 sources) WPKA3-IPE-PWX-FI SH OIL-L.CASEI ORAL Take by mouth once daily. 0 Active Comment on above: Take by mouth once d aily. polyethylene glycol 3350 [id number] mg / potassium chloride 2970 mg / sodium bicarbonate 6740 mg / sodium chloride 5860 mg / sodium sulfate 26922 mg powder for oral solution (1 source) [...] CNOV Office Visit ([facility] ) CKISABEL L ([id number]) 1960 F Date Time Provider Department 09/29/23 [...] mg by mouth daily at bedtime. - IUTW1-ALF-WPG-FISH OIL-L.CASEI ORAL Take by mouth once daily. [...] [D64.89] 09/02 (more content not included)... Normal [facility] ANES POSTPROC EVALon 023 ANES POSTPROC EVAL HNO ID: [id number] Author: Kobe Garcia MD Service: ? Author Type: Anesthesiologist Type: Anesthesia Postprocedure Evaluation Filed: 09/02/2023 10:38 AM Note Text: POST ANESTHESIA EVALUATION NOTE : 1960 Procedure Summary Date: 09/02/23 Room / Location: [place] [address] [facility] Anesthesia Start: 745 Anesthesia [...] September 02, 2023 TIME: 10:37 AM CSN: [id number] Normal [facility] ANES PRE-OPon 09-02-2023 ANES PRE-OP HNO ID: [id number] Author: Kobe Garcia MD Service: ? Author [...] 1,000 mg by mouth once daily. - PLEG8-HDD-RCZ-FISH OIL-L.CASEI ORAL Take by mouth once daily. [...] on 06/27/2023 (more content not included)... Normal [facility] ANES PREOPon 09-02-2023 ANES PREOP HNO ID: [id number] Author: Kobe Garcia MD Service: Anesthesiology Author Type: Anesthesiologist Type: Anesthesia PreOp Filed: 09/02/2023 7:05 AM Note Text: Healthy except for FAP. Appropriately NPO, denies reflux, no history of anesthesia problems. Reviewed in fathers presence. MP1, no airway concerns, ASA2, Plan for GA with LMA. Has braces, tight , no loose teeth. Normal [facility] BRIEF OP NOTon 09-02-2023 BRIEF OP NOT HNO ID: [id number] Author: Milagro Sanchez MD Service: Colorectal Author Type: Physician Type: Brief Op Note Filed: 09/02/2023 8:57 AM Note Text: BRIEF OPERATIVE NOTE - COLORECTAL SURGERY Log ID: [id number] Surgery/Procedure Date: 09/02/2023 Incision/Procedure Start Time: 8:01 AM Incision Close/Procedure End Time: 8:51 AM Surgeon(s) and Simulation Engineer(s): Surgeon(s) and Role: * South Saba DO [...] DATE: September 02, 2023 TIME: 8:56 AM [facility] CNDSon 09-02-2023 [facility] HNO ID: [id number] Author: Ricardo White PA-C Service: Colorectal Author Type: Physician Simulation Engineer Type: Discharge Summary Filed: 09/02/2023 2:06 PM Note Text: Attestation signed by South Saba DO at 09/02/2023 4:24 PM South Saba DO, FACS, [facility] Colorectal Surgery DISCHARGE SUMMARY PATIENT NAME: sIabel Waddell ADMISSION DATE: 09/02/2023 DISCHARGE DATE: 09/02/2023 [...] [facility] [address] Saba's office at [phone] to make an appointment. Transitions of Care [...] capsule Commonly (more content not included)... Normal [facility] Hematocrit Auto (Bld) [Volum e fraction]on 09-02-2023 Hematocrit (Bld) [Volume fraction] 27.4 % Low 36.0-46.0 [facility] Comment on above: Order Comment: Speci men Type: BLOOD SPECIMEN Ordering Facility: [facility] Address: [address] [place] [address] Performed By: #### 5 0190-8, 2276-02 #### [facility] CLIA [id number] [address] [place], [place] [address] [place] [address] [place] Hgb Bld-mCncon 09-02-2023 Hemoglobin (Bld) [Mass/Vol] 7.5 g/dL Low 11.5-15.5 [facility] Comment on above: Order Comment: Speci men Type: BLOOD SPECIMEN Ordering Facility: [facility] Address: [address] [place], [place] [address] Performed By: #### 5 0190-8, 2275- #### [facility] CLIA [id number] [facility] [address] [address] [place] OPERATIVE NOon 09-02-2023 OPERATIVE NO HNO ID: [id number] Author: South Saba DO Service: Colorectal Author Type: Physician Type: Operative Report Filed: 09/10/2023 7:14 AM Note Text: OPERATIVE REPORT PATIENT NAME: Isabel Waddell LOG ID: [id number] SURGERY DATE: 09/02/2023 INCISION/PROCEDURE START TIME: 8:01 AM INCISION CLOSE/PROCEDURE END TIME: 8:51 AM PREOPERATIVE DIAGNOSIS: Radiation proctitis, anemia, history of endometrial adenocarcinoma POSTOPERATIVE DIAGNOSIS: Radiation proctitis, anemia, history of endometrial adenocarcinoma OPERATION PERFORMED: Flexible sigmoidoscopy, exam under anesthesia, topical application of formalin to the rectum for treatment of radiation proctitis SURGEON: South Saba DO BOMB TECHNICIAN: Mliagro Sanchez MD. no qualified residents or fellows [...] Saba, DO, FACS, FASCRS Colorectal Surgery Normal [facility] TYPE + SCREENon 09-02-2023 ABO O Normal [facility] Comment on above: Order Comment: Speci men Type: BLOOD SPECIMEN Ordering Facility: [facility] Address: [address] [place] [address] Performed By: #### 5 0190-8, 2276-4 #### [facility] CLIA [id number] [address] [place] [address] [place] HISTORICAL AB SCR STATUS Negative Normal [facility] Comment on above: Order Comment: Speci men Type: BLOOD SPECIMEN Ordering Facility: [facility] Address: [address] [place] [address] Performed By: #### 5 0190-8, 2276-4 #### [facility] CLIA [id number] [address] [place] [address] [place] Rh Nom (Bld) Positive Normal [facility] Comment on above: Order Comment: Speci men Type: BLOOD SPECIMEN Ordering Facility: [facility] Address: [address] [place] [address] Performed By: #### 5 0190-8, 2276-4 #### [facility] CLIA [id number] [address] [place] [address] [place] TYPE AND SCREEN EXPIRATION 09/05/2023 23:59 Normal [facility] Comment on above: Order Comment: Speci men Type: BLOOD SPECIMEN Ordering Facility: [facility] Address: [address] [place] [address] Performed By: #### 5 0190-8, 2276-4 #### [facility] CLIA [id number] [address] [place] [address] [place] CBC W Auto Differential pane l (Bld)on 08-29-2023 Basophils (Bld) [#/Vol] 10*3/uL Normal <0.11 [facility] Comment on above: Order Comment: Speci men Type: BLOOD SPECIMENOrdering Facility: [facility] Address: [address] [place] [address] Performed By: #### 5 7021-8 ####[facility] [id number] [place] [address] [place] Basophils/100 WBC (Bld) 0.7 % Normal [facility] Comment on above: Order Comment: Speci men Type: BLOOD SPECIMENOrdering Facility: [facility] Address: [address] [place] [address] Performed By: #### 5 7021-8 ####[facility] [id number] [place] [address] [place] Differential cell count method Nom (Bld) Auto Normal [facility] Comment on above: Order Comment: Speci men Type: BLOOD SPECIMENOrdering Facility: [facility] Address: [address] [place] [address] Performed By: #### 5 7021-8 ####[facility]IA [id number] [place] [address] [place] Eosinophils (Bld) [#/Vol] 0.18 10*3/uL Normal <0.46 [facility] Comment on above: Order Comment: Speci men Type: BLOOD SPECIMENOrdering Facility: [facility] Address: [address] [place] [address] Performed By: #### 5 7021-8 ####[facility] [id number] [place] [address] [place] Eosinophils/100 WBC (Bld) 5.9 % Normal [facility] Comment on above: Order Comment: Speci men Type: BLOOD SPECIMENOrdering Facility: [facility] Address: [address] [place] [address] Performed By: #### 5 7021-8 ####[facility]IA [id number] [place] [address] [place] Erythrocyte distribution width (RBC) [Ratio] 22.0 % High 11.5-15.0 [facility] Comment on above: Order Comment: Speci men Type: BLOOD SPECIMENOrdering Facility: [facility] Address: [address] [place] [address] Performed By: #### 5 7021-8 ####[facility]IA [id number] [place] [address] [place] Hematocrit (Bld) [Volume fraction] 26.0 % Low 36.0-46.0 [facility] Comment on above: Order Comment: Speci men Type: BLOOD SPECIMENOrdering Facility: [facility] Address: [address] [place] [address] Performed By: #### 5 7021-8 ####[facility]IA [id number] [place] [address] [place] Hemoglobin (Bld) [Mass/Vol] 7.0 g/dL Low 11.5-15.5 [facility] Comment on above: Order Comment: Speci men Type: BLOOD SPECIMENOrdering Facility: [facility] Address: [address] [place] [address] Performed By: #### 5 7021-8 ####[facility]IA [id number] [place] [address] [place] Immature granulocytes (Bld) [#/Vol] 10*3/uL Normal <0.10 [facility] Comment on above: Order Comment: Speci men Type: BLOOD SPECIMENOrdering Facility: [facility] Address: [address] [place] [address] Performed By: #### 5 7021-8 ####[facility]CLIA [id number] [place] [address] [place] Immature granulocytes/100 WBC (Bld) 0.0 % Normal [facility] Comment on above: Order Comment: Speci men Type: BLOOD SPECIMENOrdering Facility: [facility] Address: [address] [place] [address] Performed By: #### 5 7021-8 ####[facility]IA [id number] [place] [address] [place] Lymphocytes (Bld) [#/Vol] 1.20 10*3/uL Normal 1.00-4.00 [facility] Comment on above: Order Comment: Speci men Type: BLOOD SPECIMENOrdering Facility: [facility] Address: [address] [place] [address] Performed By: #### 5 7021-8 ####[facility]CLIA [id number] [place] [address] [place] Lymphocytes/100 WBC (Bld) 39.1 % Normal [facility] Comment on above: Order Comment: Speci men Type: BLOOD SPECIMENOrdering Facility: [facility] Address: [address] [place] [address] Performed By: #### 5 7021-8 ####[facility]CLIA [id number] [place] [address] [place] MCH (RBC) [Entitic mass] 17.9 pg Low 26.0-34.0 [facility] Comment on above: Order Comment: Speci men Type: BLOOD SPECIMENOrdering Facility: [facility] Address: [address] [place] [address] Performed By: #### 5 7021-8 ####[facility] LABIA [id number] [place] [address] [place] MCHC (RBC) [Mass/Vol] 26.9 g/dL Low 30.5-36.0 [facility] Comment on above: Order Comment: Speci men Type: BLOOD SPECIMENOrdering Facility: [facility] Address: [address] [place] [address] Performed By: #### 5 7021-8 ####[facility]CLIA [id number] [place] [address] [place] MCV (RBC) [Entitic vol] 66.3 fL Low 80.0-100.0 [facility] Comment on above: Order Comment: Speci men Type: BLOOD SPECIMENOrdering Facility: [facility] Address: [address] [place] [address] Performed By: #### 5 7021-8 ####[facility]IA [id number] [place] [address] [place] Monocytes (Bld) [#/Vol] 0.40 10*3/uL Normal <0.87 [facility] Comment on above: Order Comment: Speci men Type: BLOOD SPECIMENOrdering Facility: [facility] Address: [address] [place] [address] Performed By: #### 5 7021-8 ####[facility]CLIA [id number] [place] [address] [place] Monocytes/100 WBC (Bld) 13.0 % Normal [facility] Comment on above: Order Comment: Speci men Type: BLOOD SPECIMENOrdering Facility: [facility] Address: [address] [place] [address] Performed By: #### 5 7021-8 ####[facility]CLIA [id number] [place] [address] [place] Neutrophils (Bld) [#/Vol] 1.27 10*3/uL Low 1.45-7.50 [facility] Comment on above: Order Comment: Speci men Type: BLOOD SPECIMENOrdering Facility: [facility] Address: [address] [place] [address] Performed By: #### 5 7021-8 ####[facility]CLIA [id number] [place] [address] [place] Neutrophils/100 WBC (Bld) 41.3 % Normal [facility] Comment on above: Order Comment: Speci men Type: BLOOD SPECIMENOrdering Facility: [facility] Address: [address] [place] [address] Performed By: #### 5 7021-8 ####[facility]CLIA [id number] [place] [address] [place] Nucleated RBC (Bld) [#/Vol] 10*3/uL Normal <0.01 [facility] Comment on above: Order Comment: Speci men Type: BLOOD SPECIMENOrdering Facility: [facility] Address: [address] [place] [address] Performed By: #### 5 7021-8 ####[facility] LABCLIA [id number] [place] [address] [place] Nucleated RBC/100 WBC (Bld) [Ratio] 0.0 /100 WBC Normal [facility] Comment on above: Order Comment: Speci men Type: BLOOD SPECIMENOrdering Facility: [facility] Address: [address] [place] [address] Performed By: #### 5 7021-8 ####[facility]IA [id number] [place] [address] [place] Platelet mean volume (Bld) [Entitic vol] 9.6 fL Normal 9.0-12.7 [facility] Comment on above: Order Comment: Speci men Type: BLOOD SPECIMENOrdering Facility: [facility] Address: [address] [place] [address] Performed By: #### 5 7021-8 ####[facility]IA [id number] [place] [address] [place] Platelets (Bld) [#/Vol] 266 10*3/uL Normal 150-400 [facility] Comment on above: Order Comment: Speci men Type: BLOOD SPECIMENOrdering Facility: [facility] Address: [address] [place] [address] Performed By: #### 5 7021-8 ####[facility]IA [id number] [place] [address] [place] RBC (Bld) [#/Vol] 3.92 10*6/uL Normal 3.90-5.20 [facility] Comment on above: Order Comment: Speci men Type: BLOOD SPECIMENOrdering Facility: [facility] Address: [address] [place] [address] Performed By: #### 5 7021-8 ####[facility]IA [id number] [place] [address] [place] WBC (Bld) [#/Vol] 3.07 10*3/uL Low 3.70-11.00 [facility] Comment on above: Order Comment: Speci men Type: BLOOD SPECIMENOrdering Facility: [facility] Address: [address] [place] [address] Performed By: #### 5 7021-8 ####[facility] LABLAKIA [id number] [address] [place] CNOVon 08-29-2023 CNOV Office Visit (HOMERO ) ISABEL WADDELL ([id number]) 1960 F Date Time Provider Department 08/29/23 11:00 AM ELDER GALAN During your visit today, we recorded the following information about you: Temperature Pulse Blood pressure Weight 98 degrees 82/minute 163/78 66.7 kg Height 1.676 m Elder Galan APRN.LION TRAINER 08/31/2023 9:11 PM Signed COLON AND RECTAL [...] team about CBC once drawn. Elder Galan, SERVICE OPERATOR.[facility] Pelvic Floor Colorectal Surgery Risk of morbidity, mortality and/or complications of treatment plan: high Referring Provider: SOUTH SABA [[id number]] Allergies As of Allen (more content not included)... Normal [facility] CNOV Office Visit (PMNA11 ) ISABEL WADDELL Ashlie ([id number]) 1960 F Date Time Provider Department 08/29/23 10:00 AM HEIDI MENARD PMNA11 During your visit today, we recorded the following information about you: Temperature Pulse Respiration Blood pressure 98 degrees 82/minute 16/minute 157/77 Weight 66.7 kg Heidi Menard MD 08/29/2023 1:08 PM Signed Ms. Waddell is a 63 year old female who presents to the [facility] [place]. 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 Normal [facility] Comprehensive metabolic 2000 panelon 08-29-2023 Albumin [Mass/Vol] 3.9 g/dL Normal 3.9-4.9 [facility] Comment on above: Order Comment: Speci men Type: BLOOD SPECIMEN Ordering Facility: [facility] Address: [address] [place] [address] Performed By: #### 5 0190-8, 2276-4 #### [facility] CLIA [id number] [address] [place] [address] [place] ALP [Catalytic activity/Vol] 164 U/L High 34-123 [facility] Comment on above: Order Comment: Speci men Type: BLOOD SPECIMEN Ordering Facility: [facility] Address: [address] [place] [address] Performed By: #### 5 0190-8, 2275-4 #### [facility] CLIA [id number] [address] [place] [address] [place] ALT [Catalytic activity/Vol] 45 U/L High 7-38 [facility] Comment on above: Order Comment: Speci men Type: BLOOD SPECIMEN Ordering Facility: [facility] Address: [address] [place] [address] Performed By: #### 5 0190-8, 2275-4 #### [facility] CLIA [id number] [address] [place] [address] [place] Anion gap [Moles/Vol] 10 mmol/L Normal 9-18 [facility] Comment on above: Order Comment: Speci men Type: BLOOD SPECIMEN Ordering Facility: [facility] Address: [address] [place], [place] [address] Performed By: #### 5 0190-8, 2275-4 #### [facility] CLIA [id number] [address] [place] [address] [place] AST [Catalytic activity/Vol] 48 U/L High 13-35 [facility] Comment on above: Order Comment: Speci men Type: BLOOD SPECIMEN Ordering Facility: [facility] Address: [address] [place], [place] [address] Performed By: #### 5 0190-8, 2275-4 #### [facility] CLIA [id number] [address] [place] [address] [place] Bilirubin [Mass/Vol] 0.3 mg/dL Normal 0.2-1.3 [facility] Comment on above: Order Comment: Speci men Type: BLOOD SPECIMEN Ordering Facility: [facility] Address: [address] Performed By: #### 5 0190-8, 2275- #### [facility] CLIA [id number] [address] [place] [address] [place] Calcium [Mass/Vol] 9.5 mg/dL Normal 8.5-10.2 [facility] Comment on above: Order Comment: Speci men Type: BLOOD SPECIMEN Ordering Facility: [facility] Address: [address] [place] [address] Performed By: #### 5 0190-8, 2275- #### [facility] CLIA [id number] [address] [place] [address] [place] Chloride [Moles/Vol] 107 mmol/L High 97-105 [facility] Comment on above: Order Comment: Speci men Type: BLOOD SPECIMEN Ordering Facility: [facility] Address: [address] [place], [place] [address] Performed By: #### 5 0190-8, 2276-02 #### [facility] CLIA [id number] [address] [place] [address] [place] CO2 [Moles/Vol] 24 mmol/L Normal 22-30 [facility] Comment on above: Order Comment: Speci men Type: BLOOD SPECIMEN Ordering Facility: [facility] Address: [address] Performed By: #### 5 0190-8, 2275- #### [facility] CLIA [id number] [address] [place] [address] [place] Creatinine [Mass/Vol] 0.61 mg/dL Normal 0.58-0.96 [facility] Comment on above: Order Comment: Speci men Type: BLOOD SPECIMEN Ordering Facility: [facility] Address: [address] [place] [id number] Performed By: #### 5 0190-8, 2276-4 #### [facility] CLIA [id number] [address] [place] [address] [place] Creatinine and Glomerular filtration rate.predicted panel (S/P/Bld) 101 mL/min/1.73m??? Normal >=60 [facility] Comment on above: Order Comment: Adonis mayo Type: BLOOD SPECIMEN Ordering Facility: [facility] Address: [address] [place] [address] Result Comment: Kae mated Glomerular Filtration Rate [...] Performed By: #### 5 0190-8, 2276-4 #### [facility] CLIA [id number] [address] [place] [address] [place] Glucose [Mass/Vol] 94 mg/dL Normal 74-99 [facility] Comment on above: Order Comment: Adonis mayo Type: BLOOD SPECIMEN Ordering Facility: [facility] Address: [address] [place] [address] Result Comment: The [place] [employer] Association (ADA) provides guidance for cutoff [...] Standards of Medical Care in Diabetes 2016, [place] [employer]. Diabetes Care. 2016.39(Suppl 1). Performed By: #### 5 0190-8, 2276-02 #### [facility] CLIA [id number] [address] [place] [address] [place] Potassium [Moles/Vol] 4.5 mmol/L Normal 3.7-5.1 [facility] Comment on above: Order Comment: Speci men Type: BLOOD SPECIMEN Ordering Facility: [facility] Address: [address] [place] [address] Performed By: #### 5 0190-8, 2276-02 #### [facility] CLIA [id number] [address] [place] [address] [place] Protein [Mass/Vol] 6.4 g/dL Normal 6.3-8.0 [facility] Comment on above: Order Comment: Speci men Type: BLOOD SPECIMEN Ordering Facility: [facility] Address: [address] Performed By: #### 5 0190-8, 2276-02 #### [facility] CLIA [id number] [address] [place] [address] [place] Sodium [Moles/Vol] 141 mmol/L Normal 136-144 [facility] Comment on above: Order Comment: Speci men Type: BLOOD SPECIMEN Ordering Facility: [facility] Address: [address] [place] [address] Performed By: #### 5 0190-8, 2276-02 #### [facility] CLIA [id number] [address] [place] [address] [place] Urea nitrogen [Mass/Vol] 13 mg/dL Normal 7-21 [facility] Comment on above: Order Comment: Speci men Type: BLOOD SPECIMEN Ordering Facility: [facility] Address: [address] Performed By: #### 5 0190-8, 2275- #### [facility] [facility] CLIA [id number] [address] [address] [place] ECG COMPLETEon 08-29-2023 ECG COMPLETE Ventricular Rate : 7 6 BPM Atrial Rate : 76 BPM P-R Interval : 194 ms QRS Duration : 82 ms Q-T Interval : 392 ms QTC Calculation(Bazett) : 441 ms Calculated P [place] : 22 degrees Calculated R [place] : 58 degrees Calculated T [place] : 43 degrees NORMAL SINUS RHYTHM POSSIBLE LEFT ATRIAL ENLARGEMENT LEFT VENTRICULAR HYPERTROPHY ABNORMAL ECG Confirmed by MING MITCHELL MD ([id number]) on 09/02/2023 9:46:08 PM NAME : ISABEL WADDELL PID : [id number] : 1960 Gender : Female Race : ORD : [id number] Procedure Date : Aug 29 2023 13:01:41 Edit Date : Sep 02 2023 21:46:10 Diagnosis: NORMAL SINUS RHYTHM POSSIBLE LEFT ATRIAL ENLARGEMENT LEFT VENTRICULAR HYPERTROPHY ABNORMAL ECG Confirmed by MING MITCHELL MD ([id number]) on 09/02/2023 9:46:08 PM Test Reason : Location : 119 : A17 A17 Overread By : MING MITCHELL MD Edited By : MING MITCHELL MD Referred By : [place] Acquired by : YASMIN AVILA [facility] ECHOon 08-29-2023 Echocardiography Echocardiography Report: Transthoracic Echo [facility] GUNNAR-2 Date of service: 08/29/2023 1:42:07 PM MIXER OPERATOR Ordering physician: MIKE THOMPSON Indication: Shortness of breath Technologist: Ashlee Mera [facility] Interpreting physician: Mikki Etienne MD PATIENT: Name: [...] * * Final * * * CC [employer] [facility] Image : [id number] Normal [facility] HISTORY PHYSICALon HISTORY PHYSICAL HNO ID: [id number] Author: Elder Galan APRN.MONSERRAT Service: ? Author [...] team about CBC once drawn. Elder Galan APRN.LION TRAINER Pelvic Floor Colorectal Surgery Risk of morbidity, mortality and/or complications of treatment plan: high Normal [facility] TYPE + SCREENon 08-29-2023 ABO group Nom (Bld) O [facility] Blood group antibody screen Ql Negative [facility] HIstorical Ab Scr Status Negative [facility] Rh Nom (Bld) Positive [facility] Type and Screen Expiration 09/01/2023 23:59 [facility] ABO O Normal [facility] Comment on above: Order Comment: Speci men Type: BLOOD SPECIMEN Ordering Facility: [facility] Address: [address] [place] [address] Performed By: #### 5 0190-8, 6-4 #### [facility] CLIA [id number] [address] OF [facility] HISTORICAL AB SCR STATUS Negative Normal [facility] Comment on above: Order Comment: Speci men Type: BLOOD SPECIMEN Ordering Facility: [facility] Address: [address] [place] [address] Performed By: #### 5 0190-8, 2275-4 #### [facility] CLIA [id number] [address] [place] [address] [place] Rh Nom (Bld) Positive Normal [facility] Comment on above: Order Comment: Speci men Type: BLOOD SPECIMEN Ordering Facility: [facility] Address: [address] [place] [address] Performed By: #### 5 0190-8, 2275-4 #### [facility] CLIA [id number] [address] [place] [address] [place] TYPE AND SCREEN EXPIRATION 09/01/2023 23:59 Normal [facility] Comment on above: Order Comment: Speci men Type: BLOOD SPECIMEN Ordering Facility: [facility] Address: [address] [place] [address] Performed By: #### 5 0190-8, 2275-4 #### [facility] CLIA [id number] [address] [place] [address] [place] XR CHEST 2V [...] of the thoracic spine. IMPRESSION: See Result. Ingredient Scaler Helper: DANA Transcribe Date/Time: Aug 29 2023 9:55A Dictated by : KRYSTIAN MULTANI MD This examination was interpreted and the report reviewed and electronically signed by: KRYSTIAN MULTANI MD on Aug 29 2023 9:57AM EST [id number] Normal [facility] CT CHEST WO IVCONon 08-22-20 CT CHEST [...] wall is unremarkable. Upper abdomen: Prior cholecystectomy. Wind Up Worker (topogram) images: No additional findings. IMPRESSION: 1. No convincing findings of interstitial lung disease. There is excessive dynamic collapse of mainstem bronchi. 2. Unchanged scattered calcified granulomas. No suspicious lung nodules. Ingredient Scaler Helper: DANA Transcribe Date/Time: Aug 22 2023 8:56A Dictated by : RICHARD LOVELACE MD This examination was interpreted and the report reviewed and electronically signed by: RICHARD LOVELACE MD on Aug 22 2023 9:01AM EST [id number] Normal [facility] CNPNon 07-22-2023 CNPN Telephone (HOMERO) ISABEL WADDELL ([id number]) 1960 F Date Time Provider Department 07/22/23 [place] During your visit today, we recorded the following information about you: [facility]ing [facility] 07/22/2023 3:18 PM Signed Isabel Waddell [...] mg by mouth daily at bedtime. - HELW8-EUG-EFN-FISH OIL-L.CASEI ORAL Take by mouth once daily. [...] Status:Closed by GABY NICHOLS RN on 07/22/23 [facility] Telephone (KitchensurfingN) ISABEL WADDELL ([id number]) 1960 F Date Time Provider Department 07/22/23 [place] During your visit today, we recorded the following information about you: Enid Baker 07/22/2023 2:49 PM Signed [phone] Patient calling to reschedule her EUA. Allergies [...] mg by mouth daily at bedtime. - AIGO9-XJL-TTX-FISH OIL-L.CASEI ORAL Take by mouth once daily. [...] Status:Closed by ENID BAKER on 07/22/23 Normal [facility] Comprehensive metabolic 2000 panelon 07-05-2023 Albumin [Mass/Vol] 4.0 g/dL 3.9 - 4.9 g/dL [facility] ALP [Catalytic activity/Vol] 161 U/L High 34 - 123 U/L [facility] ALT [Catalytic activity/Vol] 47 U/L High 7 - 38 U/L [facility] Anion gap [Moles/Vol] 11 mmol/L 9 - 18 mmol/L [facility] AST [Catalytic activity/Vol] 41 U/L High 13 - 35 U/L [facility] Bilirubin [Mass/Vol] 0.3 mg/dL 0.2 - 1 .3 mg/dL [facility] Calcium [Mass/Vol] 9.5 mg/dL 8.5 - 10. 2 mg/dL [facility] Chloride [Moles/Vol] 105 mmol/L 97 - 10 5 mmol/L [facility] CO2 [Moles/Vol] 26 mmol/L 22 - 30 mmol/L [facility] Creatinine [Mass/Vol] 0.74 mg/dL 0.58 - 0.96 mg/dL [facility] Estimated Glomerular Filtration Rate 91 mL/min/1.73m >=60 mL/min/1.73m [facility] Glucose [Mass/Vol] 104 mg/dL High 74 - 99 mg/dL [facility] Potassium [Moles/Vol] 4.5 mmol/L 3.7 - 5.1 mmol/L [facility] Protein [Mass/Vol] 6.3 g/dL 6.3 - 8.0 g/dL [facility] Sodium [Moles/Vol] 142 mmol/L 136 - 144 mmol/L [facility] Urea nitrogen [Mass/Vol] 16 mg/dL 7 - 21 mg/dL [facility] CBC W Auto Differential pane l (Bld)on 07-04-2023 Basophils (Bld) [#/Vol] 0.03 10*3/uL Normal <0.11 [facility] Comment on above: Order Comment: Speci men Type: BLOOD SPECIMEN Ordering Facility: [facility] Address: [address] [place] [address] Performed By: #### 5 0190-8, 2275- #### [facility] CLIA [id number] [address] [place] [address] [place] Basophils/100 WBC (Bld) 0.9 % Normal [facility] Comment on above: Order Comment: Speci men Type: BLOOD SPECIMEN Ordering Facility: [facility] Address: [address] Performed By: #### 5 0190-8, 2275- #### [facility] CLIA [id number] [address] [place] [address] [place] Differential cell count method Nom (Bld) Auto Normal [facility] Comment on above: Order Comment: Speci men Type: BLOOD SPECIMEN Ordering Facility: [facility] Address: [address] Performed By: #### 5 0190-8, 2276-02 #### [facility] CLIA [id number] [address] [place] [address] [place] Eosinophils (Bld) [#/Vol] 0.16 10*3/uL Normal <0.46 [facility] Comment on above: Order Comment: Speci men Type: BLOOD SPECIMEN Ordering Facility: [facility] Address: [address] [place] [address] Performed By: #### 5 0190-8, 2276-02 #### [facility] CLIA [id number] [address] [place] [address] [place] Eosinophils/100 WBC (Bld) 4.9 % Normal [facility] Comment on above: Order Comment: Speci men Type: BLOOD SPECIMEN Ordering Facility: [facility] Address: [address] [place] [address] Performed By: #### 5 0190-8, 2276-02 #### [facility] CLIA [id number] [address] [place] [address] [place] Erythrocyte distribution width (RBC) [Ratio] 19.9 % High 11.5-15.0 [facility] Comment on above: Order Comment: Speci men Type: BLOOD SPECIMEN Ordering Facility: [facility] Address: [address] [place] [address] Performed By: #### 5 0190-8, 2276-02 #### [facility] CLIA [id number] [address] [place] [address] [place] Hematocrit (Bld) [Volume fraction] 25.1 % Low 36.0-46.0 [facility] Comment on above: Order Comment: Speci men Type: BLOOD SPECIMEN Ordering Facility: [facility] Address: [address] [place] [address] Performed By: #### 5 0190-8, 2275- #### [facility] CLIA [id number] [address] [place] [address] [place] Hemoglobin (Bld) [Mass/Vol] 7.1 g/dL Low 11.5-15.5 [facility] Comment on above: Order Comment: Speci men Type: BLOOD SPECIMEN Ordering Facility: [facility] Address: [address] [place] [address] Performed By: #### 5 0190-8, 2275-4 #### [facility] CLIA [id number] [address] [place] [address] [place] Immature granulocytes (Bld) [#/Vol] 10*3/uL Normal <0.10 [facility] Comment on above: Order Comment: Speci men Type: BLOOD SPECIMEN Ordering Facility: [facility] Address: [address] [place] [address] Performed By: #### 5 0190-8, 2275-4 #### [facility] CLIA [id number] [address] [place] [address] [place] Immature granulocytes/100 WBC (Bld) 0.3 % Normal [facility] Comment on above: Order Comment: Speci men Type: BLOOD SPECIMEN Ordering Facility: [facility] Address: [address] [place] [address] Performed By: #### 5 0190-8, 2275-4 #### [facility] CLIA [id number] [address] [place] [address] [place] Lymphocytes (Bld) [#/Vol] 1.12 10*3/uL Normal 1.00-4.00 [facility] Comment on above: Order Comment: Speci men Type: BLOOD SPECIMEN Ordering Facility: [facility] Address: [address] [place], [place] [address] Performed By: #### 5 0190-8, 2275- #### [facility] CLIA [id number] [address] [place] [address] [place] Lymphocytes/100 WBC (Bld) 34.6 % Normal [facility] Comment on above: Order Comment: Speci men Type: BLOOD SPECIMEN Ordering Facility: [facility] Address: [address] [place], [place] [address] Performed By: #### 5 0190-8, 2276-02 #### [facility] CLIA [id number] [address] [place] [address] [place] MCH (RBC) [Entitic mass] 19.2 pg Low 26.0-34.0 [facility] Comment on above: Order Comment: Speci men Type: BLOOD SPECIMEN Ordering Facility: [facility] Address: [address] [place], [place] [address] Performed By: #### 5 0190-8, 2276-02 #### [facility] CLIA [id number] [facility] [place] [address] [place] MCHC (RBC) [Mass/Vol] 28.3 g/dL Low 30.5-36.0 [facility] Comment on above: Order Comment: Speci men Type: BLOOD SPECIMEN Ordering Facility: [facility] Address: [address] [place], [place] [address] Performed By: #### 5 0190-8, 2276-02 #### [facility] CLIA [id number] [address] [place] [address] [place] MCV (RBC) [Entitic vol] 67.8 fL Low 80.0-100.0 [facility] Comment on above: Order Comment: Speci men Type: BLOOD SPECIMEN Ordering Facility: [facility] Address: [address] [place] [address] Performed By: #### 5 0190-8, 2276-02 #### [facility] CLIA [id number] [address] [place] [address] [place] Monocytes (Bld) [#/Vol] 0.49 10*3/uL Normal <0.87 [facility] Comment on above: Order Comment: Speci men Type: BLOOD SPECIMEN Ordering Facility: [facility] Address: [address] Performed By: #### 5 0190-8, 2275- #### [facility] CLIA [id number] [address] [place] [address] [place] Monocytes/100 WBC (Bld) 15.1 % Normal [facility] Comment on above: Order Comment: Speci men Type: BLOOD SPECIMEN Ordering Facility: [facility] Address: [address] Performed By: #### 5 0190-8, 2275- #### [facility] CLIA [id number] [address] [place] [address] [place] Neutrophils (Bld) [#/Vol] 1.43 10*3/uL Low 1.45-7.50 [facility] Comment on above: Order Comment: Speci men Type: BLOOD SPECIMEN Ordering Facility: [facility] Address: [address] Performed By: #### 5 0190-8, 2276-02 #### [facility] CLIA [id number] [address] [place] [address] [place] Neutrophils/100 WBC (Bld) 44.2 % Normal [facility] Comment on above: Order Comment: Speci men Type: BLOOD SPECIMEN Ordering Facility: [facility] Address: [address] Performed By: #### 5 0190-8, 2275- #### [facility] CLIA [id number] [address] [place] [address] [place] Nucleated RBC (Bld) [#/Vol] 10*3/uL Normal <0.01 [facility] Comment on above: Order Comment: Speci men Type: BLOOD SPECIMEN Ordering Facility: [facility] Address: [address] Performed By: #### 5 0190-8, 2275- #### [facility] CLIA [id number] [address] [place] [address] [place] Nucleated RBC/100 WBC (Bld) [Ratio] 0.0 /100 WBC Normal [facility] Comment on above: Order Comment: Speci men Type: BLOOD SPECIMEN Ordering Facility: [facility] Address: [address] [place], [place] [address] Performed By: #### 5 0190-8, 2275- #### [facility] CLIA [id number] [address] [place] [address] [place] Platelet mean volume (Bld) [Entitic vol] 9.8 fL Normal 9.0-12.7 [facility] Comment on above: Order Comment: Speci men Type: BLOOD SPECIMEN Ordering Facility: [facility] Address: [address] [place] [address] Performed By: #### 5 0190-8, 2276-02 #### [facility] CLIA [id number] [address] [place] [address] [place] Platelets (Bld) [#/Vol] 304 10*3/uL Normal 150-400 [facility] Comment on above: Order Comment: Speci men Type: BLOOD SPECIMEN Ordering Facility: [facility] Address: [address] [place] [address] Performed By: #### 5 0190-8, 2276-02 #### [facility] CLIA [id number] [address] [place] [address] [place] RBC (Bld) [#/Vol] 3.70 10*6/uL Low 3.90-5.20 [facility] Comment on above: Order Comment: Speci men Type: BLOOD SPECIMEN Ordering Facility: [facility] Address: [address] [place], [place] [address] Performed By: #### 5 0190-8, 2275-4 #### [facility] CLIA [id number] [address] [facility] [place] [address] [place] WBC (Bld) [#/Vol] 3.24 10*3/uL Low 3.70-11.00 [facility] Comment on above: Order Comment: Speci men Type: BLOOD SPECIMEN Ordering Facility: [facility] Address: [address] [address] Performed By: #### 5 0190-8, 2276-4 #### [facility] CLIA [id number] [address] [facility] [address] [place] Basophils (Bld) [#/Vol] 0.03 10*3/uL <0.11 k/uL [facility] Basophils/100 WBC (Bld) 0.9 % [facility] Differential cell count method Nom (Bld) Auto [facility] Eosinophils (Bld) [#/Vol] 0.16 10*3/uL <0.46 k/uL [facility] Eosinophils/100 WBC (Bld) 4.9 % [facility] Erythrocyte distribution width (RBC) [Ratio] 19.9 % High 11.5 - 15.0 % [facility] Hematocrit (Bld) [Volume fraction] 25.1 % Low 36.0 - 46.0 % [facility] Hemoglobin (Bld) [Mass/Vol] 7.1 g/dL Low 11.5 - 15.5 g/dL [facility] Immature granulocytes (Bld) [#/Vol] <0.10 k/uL [facility] Immature granulocytes/100 WBC (Bld) 0.3 % [facility] Lymphocytes (Bld) [#/Vol] 1.12 10*3/uL 1.00 - 4.00 k/uL [facility] Lymphocytes/100 WBC (Bld) 34.6 % [facility] MCH (RBC) [Entitic mass] 19.2 pg Low 26.0 - 34.0 pg [facility] MCHC (RBC) [Mass/Vol] 28.3 g/dL Low 30.5 - 36.0 g/dL [facility] MCV (RBC) [Entitic vol] 67.8 fL Low 80.0 - 100.0 fL [facility] Monocytes (Bld) [#/Vol] 0.49 10*3/uL <0.87 k/uL [facility] Monocytes/100 WBC (Bld) 15.1 % [facility] Neutrophils (Bld) [#/Vol] 1.43 10*3/uL Low 1.45 - 7.50 k/uL [facility] Neutrophils/100 WBC (Bld) 44.2 % [facility] Nucleated RBC (Bld) [#/Vol] <0.01 k/uL [facility] Nucleated RBC/100 WBC (Bld) [Ratio] 0.0 /100 WBC [facility] Platelet mean volume (Bld) [Entitic vol] 9.8 fL 9.0 - 12.7 fL [facility] Platelets (Bld) [#/Vol] 304 10*3/uL 150 - 400 k/uL [facility] RBC (Bld) [#/Vol] 3.70 10*6/uL Low 3.90 - 5.2 0 m/uL [facility] WBC (Bld) [#/Vol] 3.24 10*3/uL Low 3.70 - 11. 00 k/uL [facility] CNOVon 07-04-2023 CNOV Office Visit (HOMERO ) ISABEL WADDELL ([id number]) 1960 F Date Time Provider Department 07/04/23 [...] regular bowel movements. 03/05/23 Juan Manuel Medina, LION TRAINER: Isabel Waddell is a 62 year old [...] 150 mg by mouth daily at bedtime. [id number]-RGG-EGR-FISH OIL-L.CASEI ORAL Take by mouth once daily. Lactobac no.41/Bifidobact no.7 (PROBIOTIC (more content not included)... Normal [facility] Comprehensive metabolic 2000 panelon 07-04-2023 Albumin [Mass/Vol] 4.0 g/dL Normal 3.9-4.9 [facility] Comment on above: Order Comment: Speci men Type: BLOOD SPECIMEN Ordering Facility: [facility] Address: [address] [place], [place] [address] [address] Performed By: #### 2 5841-8 #### [facility] CLIA [id number] [address] [place] [address] [place] ALP [Catalytic activity/Vol] 161 U/L High 34-123 [facility] Comment on above: Order Comment: Speci men Type: BLOOD SPECIMEN Ordering Facility: [facility] Address: [address] [address] Performed By: #### 2 4323-8 #### [facility] CLIA [id number] [address] [place] [address] [place] ALT [Catalytic activity/Vol] 47 U/L High 7-38 [facility] Comment on above: Order Comment: Speci men Type: BLOOD SPECIMEN Ordering Facility: [facility] Address: [address] [place] [address] Performed By: #### 2 4323-8 #### [facility] CLIA [id number] [address] [place] [address] [place] Anion gap [Moles/Vol] 11 mmol/L Normal 9-18 [facility] Comment on above: Order Comment: Speci men Type: BLOOD SPECIMEN Ordering Facility: [facility] Address: [address] [place], [place] [address] Performed By: #### 2 4323-8 #### [facility] CLIA [id number] [address] [place] [address] [place] AST [Catalytic activity/Vol] 41 U/L High 13-35 [facility] Comment on above: Order Comment: Speci men Type: BLOOD SPECIMEN Ordering Facility: [facility] Address: [address] [place] [address] Performed By: #### 2 4323-8 #### [facility] CLIA [id number] [address] [place] [address] [place] Bilirubin [Mass/Vol] 0.3 mg/dL Normal 0.2-1.3 [facility] Comment on above: Order Comment: Speci men Type: BLOOD SPECIMEN Ordering Facility: [facility] Address: [address] Performed By: #### 2 4323-8 #### [facility] CLIA [id number] [address] [place] [address] [place] Calcium [Mass/Vol] 9.5 mg/dL Normal 8.5-10.2 [facility] Comment on above: Order Comment: Speci men Type: BLOOD SPECIMEN Ordering Facility: [facility] Address: [address] Performed By: #### 2 4323-8 #### [facility] CLIA [id number] [address] [place] [address] [place] Chloride [Moles/Vol] 105 mmol/L Normal 97-105 [facility] Comment on above: Order Comment: Speci men Type: BLOOD SPECIMEN Ordering Facility: [facility] Address: [address] Performed By: #### 2 4323-8 #### [facility] CLIA [id number] [address] [place] [address] [place] CO2 [Moles/Vol] 26 mmol/L Normal 22-30 [facility] Comment on above: Order Comment: Speci men Type: BLOOD SPECIMEN Ordering Facility: [facility] Address: [address] Performed By: #### 2 4323-8 #### [facility] CLIA [id number] [address] [place] [address] [place] Creatinine [Mass/Vol] 0.74 mg/dL Normal 0.58-0.96 [facility] Comment on above: Order Comment: Speci men Type: BLOOD SPECIMEN Ordering Facility: [facility] Address: [address] Performed By: #### 2 4323-8 #### [facility] CLIA [id number] [facility] [place] [address] [place] Creatinine and Glomerular filtration rate.predicted panel (S/P/Bld) 91 mL/min/1.73m??? Normal >=60 [facility] Comment on above: Order Comment: Adonis mayo Type: BLOOD SPECIMEN Ordering Facility: [facility] Address: [address] [place] [address] Result Comment: Kae mated Glomerular Filtration Rate [...] GFR. Performed By: #### 2 4323-8 #### [facility] CLIA [id number] [address] [place] [address] [place] [facility] Glucose [Mass/Vol] 104 mg/dL High 74-99 [facility] Comment on above: Order Comment: Adonis mayo Type: BLOOD SPECIMEN Ordering Facility: [facility] Address: [address] [place] [address] Result Comment: The [place] [employer] (ADA) provides guidance for cutoff [...] Standards of Medical Care in Diabetes 2016, [place] [employer]. Diabetes Care. 2016.39(Suppl 1). Performed By: #### 2 4323-8 #### [facility] CLIA [id number] [address] [place] [address] [place] Potassium [Moles/Vol] 4.5 mmol/L Normal 3.7-5.1 [facility] Comment on above: Order Comment: Speci men Type: BLOOD SPECIMEN Ordering Facility: [facility] Address: [address] [place] [address] Performed By: #### 2 4323-8 #### [facility] CLIA [id number] [address] [place] [address] [place] Protein [Mass/Vol] 6.3 g/dL Normal 6.3-8.0 [facility] Comment on above: Order Comment: Speci men Type: BLOOD SPECIMEN Ordering Facility: [facility] Address: [address] [place] [address] Performed By: #### 2 4323-8 #### [facility] CLIA [id number] [address] [place] [address] [place] Sodium [Moles/Vol] 142 mmol/L Normal 136-144 [facility] Comment on above: Order Comment: Speci men Type: BLOOD SPECIMEN Ordering Facility: [facility] Address: [address] [place] [address] Performed By: #### 2 4323-8 #### [facility] CLIA [id number] [address] [place] [address] [place] Urea nitrogen [Mass/Vol] 16 mg/dL Normal 7-21 [facility] Comment on above: Order Comment: Speci men Type: BLOOD SPECIMEN Ordering Facility: [facility] Address: [address] [place] [address] Performed By: #### 2 4323-8 #### [facility] CLIA [id number] [address] [place] [address] [place] HISTORY PHYSICALon 3 HISTORY PHYSICAL HNO ID: [id number] Author: [place], DO Service: ? Author [...] regular bowel movements. 03/05/23 Juan Manuel Medina, LION TRAINER: Isabel Waddell is a 62 year old [...] 150 mg by mouth daily at bedtime. KVVP4-GAQ-XDA-FISH OIL-L.CASEI ORAL Take by mouth once daily. Lactobac no.41/Bifidobact no.7 (PROBIOTIC-10 ORAL) Take by mouth once daily. MULTIVITAMIN TAB Take one(1) tablet daily. 0 B COMPLEX VITAMINS CAP Take one(1) capsule daily. 0 CALCIUM CARBONATE-VIT D3-MINERALS 600 MG-400 UNIT TAB Take 1 tablet by mouth twice daily. 0 Current Facility-Administered Medications Medication (more content not included)... Normal [facility] CNOVon 06-27-2023 CNOV Office Visit (PMNA11 ) ISABEL WADDELL ([id number]) 1960 F Date Time Provider Department 06/27/23 10:30 AM HEIDI MENARD PMNA11 During your visit today, we recorded the following information about you: Temperature Pulse Respiration Blood pressure 97.4 degrees 70/minute 16/minute 141/76 Weight 69.4 kg Heidi Menard MD 06/27/2023 11:47 AM Addendum Ms. Waddell is a 63 year old female who presents to the [facility] [place]. Consultation requested by Self. 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 Silica: No significant exposure. Gregg: No significant exposure. Organic HP antigen: No [...] and de-a (more content not included)... Normal [facility] HEMOGLOBINon 03-21-2023 Hemoglobin (Bld) [Mass/Vol] 9.1 g/dL Critically low 12.0-16.0 [facility] Comment on above: Performed By: #### H GB ####[facility] [address] [place], [place] [address]Gp. Cheryl Monzon XR CHEST 2 Von 03-10-2023 [...] by: HENRY LOCK Date: 2023-03-10 13:57 Normal [facility] CNOVon 03-05-2023 CNOV Office Visit (GASTLN ) ISABEL WADDELL ([id number]) 1960 F Date Time Provider Department 03/05/23 [...] Abs Lymph 1.00 - 4.00 k/uL 1.31 Martin% % 11.1 Abs Martin <0.87 k/uL 0.50 Eosin% % 3.1 Abs [...] or Indwelling (more content not included)... Normal [facility] HISTORY PHYSICALon 3 HISTORY PHYSICAL HNO ID: [id number] Author: Juan Manuel Medina APRN.LION TRAINER Service: ? Author Type: Nurse Practitioner Type: [...] Abs Lymph 1.00 - 4.00 k/uL 1.31 Martin% % 11.1 Abs Martin <0.87 k/uL 0.50 Eosin% % 3.1 Abs [...] mouth daily (more content not included)... Normal [facility] Covid-19 PCR (CVDTBH)on SARS-CoV-2 (COVID-19) RNA ANGELA+probe Ql (Unsp spec) Not detected Normal NOT DETECTED [facility] Comment on above: Result Comment: When diagnostic [...] for this test is supported by the [place] of Health and Human Service's declaration that [...] used). Performed By: #### C VDTB #### [facility] [address] [place] [address] Dr. Cheryl Monzon INFLUENZA A AND B AGon [facility] SEE BELOW Normal [facility] Comment on above: Result Comment: Nega tive for Flu A protein angiten. Infection due to Flu A cannot be ruled out. Flu A angiten in the sample may be below the detection limit of the test. Performed By: #### I NFLUAB #### [facility] [address] [place] [address] Dr. Cheryl Monzon [facility] SEE BELOW Normal [facility] Comment on above: Result Comment: Nega tive for Flu B protein antigen. Infection due to Flu B cannot be ruled out. Flu B antigen in the sample may be below the detection limit of the test. Performed By: #### I NFLUAB #### [facility] [address] [place] [address] Dr. Cheryl Monzon INFLUENZA A AG Negative Normal NEGATIVE SEE COMMENT [facility] Comment on above: Performed By: #### I NFLUAB #### [facility] [address] [place] [address] Dr. Cheryl Monzon INFLUENZA B AG Negative Normal NEGATIVE SEE COMMENT [facility] Comment on above: Performed By: #### I NFLUAB #### [facility] [address] [address] [address] Cheryl Monzon FERRITIN BLDon 01-04-2023 Ferritin [Mass/Vol] 14.2 ng/mL Low 14.7 - 2 05.1 ng/mL [facility] Iron and Iron binding capaci ty panelon 01-04-2023 Iron [Mass/Vol] 77 ug/dL 41 - 186 ug/dL [facility] Iron binding capacity [Mass/Vol] 382 ug/dL 232 - 386 ug/dL [facility] Iron/TIBC [Molar ratio] 20.2 % 15.0 - 57.0 % [facility] CBC W Auto Differential pane l (Bld)on 01-03-2023 Basophils (Bld) [#/Vol] 10*3/uL Normal <0.11 [facility] Comment on above: Order Comment: Speci men Type: BLOOD SPECIMENOrdering Facility: [facility] Address: [address] [address] Performed By: #### 5 7021-8 ####[facility] [id number] [address] [place] Basophils/100 WBC (Bld) 0.4 % Normal [facility] Comment on above: Order Comment: Speci men Type: BLOOD SPECIMENOrdering Facility: [facility] Address: [address] [address] Performed By: #### 5 7021-8 ####[facility] [id number] [place] [address] [place] Differential cell count method Nom (Bld) Auto Normal [facility] Comment on above: Order Comment: Speci men Type: BLOOD SPECIMENOrdering Facility: [facility] Address: [address] [address] Performed By: #### 5 7021-8 ####[facility] [id number] [place] [address] [place] Eosinophils (Bld) [#/Vol] 0.14 10*3/uL Normal <0.46 [facility] Comment on above: Order Comment: Speci men Type: BLOOD SPECIMENOrdering Facility: [facility] Address: [address] [place] [address] Performed By: #### 5 7021-8 ####[facility] [id number] [place] [address] [place] Eosinophils/100 WBC (Bld) 3.1 % Normal [facility] Comment on above: Order Comment: Speci men Type: BLOOD SPECIMENOrdering Facility: [facility] Address: [address] [place] [address] Performed By: #### 5 7021-8 ####[facility] [id number] [place] [address] [place] Erythrocyte distribution width (RBC) [Ratio] 13.0 % Normal 11.5-15.0 [facility] Comment on above: Order Comment: Speci men Type: BLOOD SPECIMENOrdering Facility: [facility] Address: [address] [place], [place] [address] Performed By: #### 5 7021-8 ####[facility] [id number] [place] [address] [place] Hematocrit (Bld) [Volume fraction] 35.4 % Low 36.0-46.0 [facility] Comment on above: Order Comment: Speci men Type: BLOOD SPECIMENOrdering Facility: [facility] Address: [address] [place], [place] [address] Performed By: #### 5 7021-8 ####[facility] [id number] [place] [address] [place] Hemoglobin (Bld) [Mass/Vol] 11.5 g/dL Normal 11.5-15.5 [facility] Comment on above: Order Comment: Speci men Type: BLOOD SPECIMENOrdering Facility: [facility] Address: [address] Performed By: #### 5 7021-8 ####[facility] [id number] [place] [address] [place] Immature granulocytes (Bld) [#/Vol] 10*3/uL Normal <0.10 [facility] Comment on above: Order Comment: Speci men Type: BLOOD SPECIMENOrdering Facility: [facility] Address: [address] Performed By: #### 5 7021-8 ####[facility]IA [id number] [address] [place] Immature granulocytes/100 WBC (Bld) 0.2 % Normal [facility] Comment on above: Order Comment: Speci men Type: BLOOD SPECIMENOrdering Facility: [facility] Address: [address] [place], [place] [address] Performed By: #### 5 7021-8 ####[facility] [id number] [place] [address] [place] Lymphocytes (Bld) [#/Vol] 1.31 10*3/uL Normal 1.00-4.00 [facility] Comment on above: Order Comment: Speci men Type: BLOOD SPECIMENOrdering Facility: [facility] Address: [address] [place], [place] [address] Performed By: #### 5 7021-8 ####[facility]IA [id number] [place] [address] [place] Lymphocytes/100 WBC (Bld) 29.0 % Normal [facility] Comment on above: Order Comment: Speci men Type: BLOOD SPECIMENOrdering Facility: [facility] Address: [address] [place], [place] [address] Performed By: #### 5 7021-8 ####[facility]IA [id number] [address] MCH (RBC) [Entitic mass] 30.0 pg Normal 26.0-34.0 [facility] Comment on above: Order Comment: Speci men Type: BLOOD SPECIMENOrdering Facility: [facility] Address: [address] [place] [address] Performed By: #### 5 7021-8 ####[facility]IA [id number] [address] MCHC (RBC) [Mass/Vol] 32.5 g/dL Normal 30.5-36.0 [facility] Comment on above: Order Comment: Speci men Type: BLOOD SPECIMENOrdering Facility: [facility] Address: [address] [place] [address] Performed By: #### 5 7021-8 ####[facility]CLIA [id number] [address] MCV (RBC) [Entitic vol] 92.4 fL Normal 80.0-100.0 [facility] Comment on above: Order Comment: Speci men Type: BLOOD SPECIMENOrdering Facility: [facility] Address: [address] [place] [address] Performed By: #### 5 7021-8 ####[facility]CLIA [id number] [place] [address] [place] Monocytes (Bld) [#/Vol] 0.50 10*3/uL Normal <0.87 [facility] Comment on above: Order Comment: Speci men Type: BLOOD SPECIMENOrdering Facility: [facility] Address: [address] [place] [address] Performed By: #### 5 7021-8 ####[facility]CLIA [id number] [address] [place] Monocytes/100 WBC (Bld) 11.1 % Normal [facility] Comment on above: Order Comment: Speci men Type: BLOOD SPECIMENOrdering Facility: [facility] Address: [address] Performed By: #### 5 7021-8 ####[facility]CLIA [id number] [place] [address] [place] Neutrophils (Bld) [#/Vol] 2.53 10*3/uL Normal 1.45-7.50 [facility] Comment on above: Order Comment: Speci men Type: BLOOD SPECIMENOrdering Facility: [facility] Address: [address] [address] Performed By: #### 5 7021-8 ####[facility]CLIA [id number] [place] [address] [place] Neutrophils/100 WBC (Bld) 56.2 % Normal [facility] Comment on above: Order Comment: Speci men Type: BLOOD SPECIMENOrdering Facility: [facility] Address: [address] Performed By: #### 5 7021-8 ####[facility]CLIA [id number] [place] [address] [place] Nucleated RBC (Bld) [#/Vol] 10*3/uL Normal <0.01 [facility] Comment on above: Order Comment: Speci men Type: BLOOD SPECIMENOrdering Facility: [facility] Address: [address] Performed By: #### 5 7021-8 ####[facility]CLIA [id number] [place] [address] [place] Nucleated RBC/100 WBC (Bld) [Ratio] 0.0 /100 WBC Normal [facility] Comment on above: Order Comment: Speci men Type: BLOOD SPECIMENOrdering Facility: [facility] Address: [address] Performed By: #### 5 7021-8 ####[facility]CLIA [id number] [place] [address] [place] Platelet mean volume (Bld) [Entitic vol] 9.9 fL Normal 9.0-12.7 [facility] Comment on above: Order Comment: Speci men Type: BLOOD SPECIMENOrdering Facility: [facility] Address: [address] [place], [place] [address] Performed By: #### 5 7021-8 ####[facility]CLIA [id number] [place] [address] [place] Platelets (Bld) [#/Vol] 235 10*3/uL Normal 150-400 [facility] Comment on above: Order Comment: Speci men Type: BLOOD SPECIMENOrdering Facility: [facility] Address: [address] [place], [place] [address] Performed By: #### 5 7021-8 ####[facility]IA [id number] [place] [address] [place] RBC (Bld) [#/Vol] 3.83 10*6/uL Low 3.90-5.20 [facility] Comment on above: Order Comment: Speci men Type: BLOOD SPECIMENOrdering Facility: [facility] Address: [address] [place], [place] [address] Performed By: #### 5 7021-8 ####[facility]IA [id number] [place] [address] [place] WBC (Bld) [#/Vol] 4.51 10*3/uL Normal 3.70-11.00 [facility] Comment on above: Order Comment: Speci men Type: BLOOD SPECIMENOrdering Facility: [facility] Address: [address] [place], [place] [address] Performed By: #### 5 7021-8 ####[facility]CLIA [id number] [place] [address] [place] Basophils (Bld) [#/Vol] <0.11 k/uL [facility] Basophils/100 WBC (Bld) 0.4 % [facility] Differential cell count method Nom (Bld) Auto [facility] Eosinophils (Bld) [#/Vol] 0.14 10*3/uL <0.46 k/uL [facility] Eosinophils/100 WBC (Bld) 3.1 % [facility] Erythrocyte distribution width (RBC) [Ratio] 13.0 % 11.5 - 15.0 % [facility] Hematocrit (Bld) [Volume fraction] 35.4 % Low 36.0 - 46.0 % [facility] Hemoglobin (Bld) [Mass/Vol] 11.5 g/dL 11.5 - 15.5 g/dL [facility] Immature granulocytes (Bld) [#/Vol] <0.10 k/uL [facility] Immature granulocytes/100 WBC (Bld) 0.2 % [facility] Lymphocytes (Bld) [#/Vol] 1.31 10*3/uL 1.00 - 4.00 k/uL [facility] Lymphocytes/100 WBC (Bld) 29.0 % [facility] MCH (RBC) [Entitic mass] 30.0 pg 26.0 - 34.0 pg [facility] MCHC (RBC) [Mass/Vol] 32.5 g/dL 30.5 - 36.0 g/dL [facility] MCV (RBC) [Entitic vol] 92.4 fL 80.0 - 100.0 fL [facility] Monocytes (Bld) [#/Vol] 0.50 10*3/uL <0.87 k/uL [facility] Monocytes/100 WBC (Bld) 11.1 % [facility] Neutrophils (Bld) [#/Vol] 2.53 10*3/uL 1.45 - 7.50 k/uL [facility] Neutrophils/100 WBC (Bld) 56.2 % [facility] Nucleated RBC (Bld) [#/Vol] <0.01 k/uL [facility] Nucleated RBC/100 WBC (Bld) [Ratio] 0.0 /100 WBC [facility] Platelet mean volume (Bld) [Entitic vol] 9.9 fL 9.0 - 12.7 fL [facility] Platelets (Bld) [#/Vol] 235 10*3/uL 150 - 400 k/uL [facility] RBC (Bld) [#/Vol] 3.83 10*6/uL Low 3.90 - 5.2 0 m/uL [facility] WBC (Bld) [#/Vol] 4.51 10*3/uL 3.70 - 11. 00 k/uL [facility] CNOVSPon 01-03-2023 CNOVSP Visit (SP) Office (BHAVNA) ISABEL WADDELL ([id number]) 1960 F Date Time Provider Department 01/03/23 3:20 PM HENRY RAMOS During your visit today, we recorded the following information about you: Temperature Pulse Blood pressure Weight 97.8 degrees 95/minute 141/87 71.2 kg Height 1.676 m Henry Ramos MD 01/12/2023 11:27 PM Signed Gynecologic Oncology [facility] Follow up visit Date of service: 01/03/2023 [...] differentiation, FIGO grade 2. Neg LVSI, 13% MO pT1a (IA): Tumor limited to endometrium or invades less than 1/2 of the myometrium 05/25/2021 Vaginal biopsy Vagina, biopsy - Consistent with endometrioid adenocarcinoma (see comment). GZ/ka 05/28/2021 COMMENT The tumor cells are diffusely and strongly positive for immunohistochemical stain for [place] 8, supporting the above diagnosis. The patient [...] ORAL T (more content not included)... Normal [facility] Ferritin SerPl-mCncon 2022 Ferritin [Mass/Vol] 14.2 ng/mL Low 14.7-205.1 [facility] Comment on above: Order Comment: Adonis mayo Type: BLOOD SPECIMEN Ordering Facility: [facility] Address: [address] [place], [place] [address] Performed By: #### 5 0190-8, 2276-02 #### [facility] CLIA [id number] [address] [place] [address] [place] Iron and Iron binding capaci ty panelon 01-03-2023 Iron [Mass/Vol] 77 ug/dL Normal 41-186 [facility] Comment on above: Order Comment: Adonis mayo Type: BLOOD SPECIMEN Ordering Facility: [facility] Address: [address] [place], [place] [address] Performed By: #### 5 0190-8, 2276-02 #### [facility] CLIA [id number] [address] [place] [address] [place] Iron binding capacity [Mass/Vol] 382 ug/dL Normal 232-386 [facility] Comment on above: Order Comment: Speci men Type: BLOOD SPECIMEN Ordering Facility: [facility] Address: [address] [id number] Performed By: #### 5 0190-8, 2276-02 #### [facility] CLIA [id number] [address] [facility] [address] [facility] Iron/TIBC [Molar ratio] 20.2 % Normal 15.0-57.0 [facility] Comment on above: Order Comment: Speci men Type: BLOOD SPECIMEN Ordering Facility: [facility] Address: [address] Performed By: #### 5 0190-8, 2276-02 #### [facility] CLIA [id number] [address] [place] Vaishnavi 12-25-2022 DEBORA Telephone (BHAVNA) ISABEL WADDELL ([id number]) 1960 F Date Time Provider Department 12/25/22 ARETHA EPNA During your visit today, we recorded the following information about you: Aretha Pena RN 12/25/2022 2:19 PM Signed ----- Message from [employer] sent at 12/25/2022 12:04 PM EST ----- Regarding: Rachel Patient bleeding and clotting almost daily since Colonoscopy. September was the Colonoscopy. Concerned and would like to know if she should schedule an appointment. [phone] Aretha Pena RN 12/25/2022 2:24 PM Signed [...] mg by mouth daily at bedtime. - GCQY4-JNC-EMS-FISH OIL-L.CASEI ORAL Take by mouth once daily. [...] Status:Closed by ARETHA PENA on 12/25/22 Normal [facility] Covid-19 PCR (CVDTBH)on SARS-CoV-2 (COVID-19) RNA ANGELA+probe Ql (Unsp spec) Not detected Normal NOT DETECTED [facility] Comment on above: Result Comment: When diagnostic [...] for this test is supported by the [place] of Health and Human Service's declaration that [...] used). Performed By: #### C VDTBH #### [facility] [address] [place] [address] Dr. Cheryl Moznon INFLUENZA A AND B AGon 11-19 [facility] SEE BELOW Normal [facility] Comment on above: Result Comment: Nega tive for Flu A protein angiten. Infection due to Flu A cannot be ruled out. Flu A angiten in the sample may be below the detection limit of the test. Performed By: #### I NFLUAB #### [facility] [address] [place] [address] Dr. Cheryl Monzon INFLUBNEGH SEE BELOW Normal [facility] Comment on above: Result Comment: Nega tive for Flu B protein antigen. Infection due to Flu B cannot be ruled out. Flu B antigen in the sample may be below the detection limit of the test. Performed By: #### I NFLUAB #### [facility] [address] [address] [address] Cheryl Monzon INFLUENZA A AG Negative Normal NEGATIVE SEE COMMENT [facility] Comment on above: Performed By: #### I NFLUAB #### [facility] [address] [address] [address] Cheryl Monzon INFLUENZA B AG Negative Normal NEGATIVE SEE COMMENT [facility] Comment on above: Performed By: #### I NFLUAB #### [facility] [address] [place] [address] Dr. Cheryl Monzon MG MAMM SCREEN 3D RAGHU CADon 10-04-2022 MG MAMM SCREEN 3D RAGHU CAD Patient: ISABEL WADDELL Exam Date: 10/04/2022 : 1960 Gender:F Ordering : DR ROLAND SERRANO D.O. Admission #: [id number] Family : Order #: [id number] CLICK HERE TO VIEW EXAM RADIOLOGY REPORT [...] Treatments radiation-hysterectomy Family Cancers None LOCATION: [facility] BREAST COMPOSITION: Scattered areas fibroglandular density. FINDINGS: [...] MD on 10/04/2022 at 13:53 Normal [facility] COLONOSCOPY (THERAPEUTIC)on 09-26-2022 [facility] T3, TOTAL (TRIIODOTHYRONINE) on 09-05-2022 T3, TOTAL 132 ng/dL Normal 71-180 [facility] Comment on above: Performed By: #### T 3TOTAL ####[facility] [address] [address]Dr. Cheryl Monzon CBC AUTO DIFFon 09-04-2022 BASO # 0.0 103/ul Normal 0.0-0.1 [facility] Comment on above: Performed By: #### C BC ####[facility] [address] [place], [place] [address]Dr. Cheryl Monzon Basophils/100 WBC (Bld) 0.4 % Normal 0.2-2.0 [facility] Comment on above: Performed By: #### C BC ####[facility] [address] [place], [place] [address]Dr. Cheryl Monzon EO # 0.1 103/ul Normal 0.0-0.7 [facility] Comment on above: Performed By: #### C BC ####[facility] [address] [place], [place] [address]Dr. Cheryl Monzon Eosinophils/100 WBC (Bld) 4.9 % Normal 0.9-7.0 [facility] Comment on above: Performed By: #### C BC ####[facility] [address] [place], [place] [address]Dr. Cheryl Monzon Erythrocyte distribution width (RBC) [Ratio] 12.8 % Normal 11.0-15.0 [facility] Comment on above: Performed By: #### C BC ####[facility] [address] [place], [place] [address]Dr. Cheryl Monzon Hematocrit (Bld) [Volume fraction] 36.7 % Normal 36.0-48.0 [facility] Comment on above: Performed By: #### C BC ####[facility] [address] [place], [place] [address]Dr. Cheryl Monzon Hemoglobin (Bld) [Mass/Vol] 11.8 g/dL Critically low 12.0-16.0 [facility] Comment on above: Performed By: #### C BC ####[facility] [address] [address]Dr. Cheryl Monzon IG # 0.01 10e3/ul Normal 0.00-0.03 [facility] Comment on above: Performed By: #### C BC ####[facility] [address] [address]Dr. Cheryl Monzon IG % 0.4 % Normal 0.0-0.5 [facility] Comment on above: Performed By: #### C BC ####[facility] [address] [place] [address]Dr. Cheryl Monzon LYMPH # 0.8 103/ul Critically low 1.2-3.8 [facility] Comment on above: Performed By: #### C BC ####[facility] [address] [place] [address]Dr. Cheryl Monzon Lymphocytes/100 WBC (Bld) 28.6 % Normal 20.5-60.0 [facility] Comment on above: Performed By: #### C BC ####[facility] [address] [place] [address]Dr. Cheryl Monzon MANUAL DIFF REQ NO Normal [facility] Comment on above: Performed By: #### C BC ####[facility] [address] [place] [address]Dr. Cheryl Monzon MCH (RBC) [Entitic mass] 30.7 pg Normal 26.7-34.0 [facility] Comment on above: Performed By: #### C BC ####[facility] [address] [place], [place] [address]Dr. Cheryl Monzon MCHC (RBC) [Mass/Vol] 32.2 g/dL Normal 29.9-35.2 [facility] Comment on above: Performed By: #### C BC ####[facility] [address] [place] [address]Dr. Cheryl Monzon MCV (RBC) [Entitic vol] 95.6 fL Normal 81.0-99.0 [facility] Comment on above: Performed By: #### C BC ####[facility] [address] [place] [id number]. Cheryl Monzon MONO # 0.3 103/ul Normal 0.3-0.8 [facility] Comment on above: Performed By: #### C BC ####[facility] [address] [place] [id number]. Cheryl Monzon Monocytes/100 WBC (Bld) 11.7 % Normal 1.7-12.0 [facility] Comment on above: Performed By: #### C BC ####[facility] [address]fr[address] [place] [address]Dr. Cheryl Monzon NEUT # 1.4 103/ul Normal 1.4-6.5 [facility] Comment on above: Performed By: #### C BC ####[facility] [address] [place] [id number]. Cheryl Monzon Neutrophils/100 WBC (Bld) 54.0 % Normal 43.0-75.0 [facility] Comment on above: Performed By: #### C BC ####[facility] Xrepdtomsg[address] [place] [id number]. Cheryl Monzon Platelet mean volume (Bld) [Entitic vol] 9.2 fL Critically low 9.5-13.5 [facility] Comment on above: Performed By: #### C BC ####[facility] [address] [place] [id number]. Cheryl Monzon PLT 217 103/ul Normal 150-450 [facility] Comment on above: Performed By: #### C BC ####[facility] Az[address]jxeck[address] [place] [address]Dr. Cheryl Monzon RBC 3.84 106/ul Critically low 4.20-5.40 [facility] Comment on above: Performed By: #### C BC ####[facility] [address] [place] [address]Dr. Cheryl Monzon WBC 2.7 103/ul Critically low 4.0-11.0 The [facility] Comment on above: Performed By: #### C BC ####[facility] [address] [place], [place] [address]BkDr. Cheryl Monzon FREE T4on 09-04-2022 Free T4 [Mass/Vol] 0.83 ng/dL Normal 0.76-1.46 [facility] Comment on above: Performed By: #### F T4 #### [facility] [id number] Cheryl Monzon GLYCOHEMOGLOBIN A1Con 2021 ADA RECOMMENDATION SEE BELOW Normal [facility] Comment on above: Result Comment: ADA RECOMMENDED LIMIT 4.0 - 6.0 ADA THERAPEUTIC TARGET < 7.0 ACTION SUGGESTED > 7.0 Performed By: #### A 1C #### [facility] [address] [address] [address] Cheryl Monzon Glucose [Mass/Vol] 111 mg/dL Normal [facility] Comment on above: Performed By: #### A 1C #### [facility] [address] [place] [address] [address] Cheryl Monzon HbA1c (Bld) [Mass fraction] 5.5 % Normal 4.5-6.2 [facility] Comment on above: Performed By: #### A 1C #### [facility] [address] [place] [address] [address] Cheryl Monzon LIPID PROFILEon 09-04-2022 CHOL-HDL RATIO NORM SEE BELOW Normal [facility] Comment on above: Result Comment: 3.3 - 4.4 LOW RISK 4.4 - 7.1 AVERAGE RISK 7.1 - 11.0 MODERATE RISK >11.0 HIGH RISK Performed By: #### T SH, LIPID, CMP ####[facility] [address] [place] [id number]. Cheryl Monzon Cholesterol [Mass/Vol] 201 mg/dL Critically high <=200 [facility] Comment on above: Performed By: #### T SH, LIPID, CMP ####[facility] [address] [place] [address]Dr. Cheryl Monzon Cholesterol in HDL [Mass/Vol] 78 mg/dL Critically high 40-60 [facility] Comment on above: Performed By: #### T SH, LIPID, CMP ####[facility] [address]rs[address]qi[address] [place] [phone]. Cheryl Monzon Cholesterol in LDL [Mass/Vol] 112.8 mg/dL Normal [facility] Comment on above: Performed By: #### T PUSHPA, LIPID, CMP ####[facility] [address] [place] [phone]. Cheryl Monzon Cholesterol.total/Chol esterol in HDL [Mass ratio] 2.6 {ratio} Normal [facility] Comment on above: Performed By: #### T PUSHPA, LIPID, CMP ####[facility] [address] [place] [address]Dr. Cheryl Monzon HDL NORMAL > or = 60 mg/dl - LO W CARDIOVASCULAR RISK <40 mg/dl - HIGH CARDIOVASCULAR RISK Normal [facility] Comment on above: Performed By: #### T PUSHPA, LIPID, CMP ####[facility] [address] [place] [address]Dr. Cheryl Monzon LDL CALC NORMAL SEE BELOW Normal [facility] Comment on above: Result Comment: <100 mg/dl OPTIMAL 100 - 129 mg/dl NEAR OR ABOVE OPTIMAL 130 - 159 mg/dl BORDERLINE HIGH 160 - 189 mg/dl HIGH >190 mg/dl VERY HIGH Performed By: #### T PUSHPA, LIPID, CMP ####[facility] [address] [place] [phone]. Cheryl Monzon Triglyceride [Mass/Vol] 51 mg/dL Normal <=150 [facility] Comment on above: Performed By: #### T PUSHPA, LIPID, CMP ####[facility] [address]bu[address] [place] [address]Dr. Cheryl Monzon VLDL CALC 10.2 mg/dL Normal [facility] Comment on above: Performed By: #### T PUSHPA, LIPID, CMP ####[facility] [address]ct[address] [place] [address]Dr. Cheryl Monzon PROF 14(COMP METB)on 022 Albumin [Mass/Vol] 3.3 g/dL Critically low 3.4-5.0 [facility] Comment on above: Performed By: #### T SH, LIPID, CMP #### [facility] [address] [address] [address] Cheryl Monzon Albumin/Globulin [Mass ratio] 1.0 {ratio} Normal [facility] Comment on above: Performed By: #### T SH, LIPID, CMP #### [facility] [address] [address] [address] Cheryl Monzon ALP [Catalytic activity/Vol] 94 U/L Normal 46-116 [facility] Comment on above: Performed By: #### T SH, LIPID, CMP #### [facility] [address] [address] [address] Cheryl Monzon ALT [Catalytic activity/Vol] 53 U/L Normal 14-59 [facility] Comment on above: Performed By: #### T SH, LIPID, CMP #### [facility] [address] [place] [address] Dr. Cheryl Monzon Anion gap [Moles/Vol] 8.8 mmol/L Normal [facility] Comment on above: Performed By: #### T SH, LIPID, CMP #### [facility] [address] [address] [address] Cheryl Monzon AST [Catalytic activity/Vol] 42 U/L Critically high 15-37 [facility] Comment on above: Performed By: #### T SH, LIPID, CMP #### [facility] [address] [address] [address] Cheryl Monzon Bilirubin [Mass/Vol] 0.3 mg/dL Normal 0.2-1.0 [facility] Comment on above: Performed By: #### T SH, LIPID, CMP #### [facility] [address] [address] [address] Cheryl Monzon Calcium [Mass/Vol] 8.8 mg/dL Normal 8.5-10.1 [facility] Comment on above: Performed By: #### T SH, LIPID, CMP #### [facility] [address] [address] [address] Cheryl Monzon Chloride [Moles/Vol] 106 mmol/L Normal 98-107 [facility] Comment on above: Performed By: #### T SH, LIPID, CMP #### [facility] [address] [address] [address] Cheryl Monzon CO2 [Moles/Vol] 30.7 mmol/L Normal 21.0-32.0 [facility] Comment on above: Performed By: #### T SH, LIPID, CMP #### [facility] [address] [address] [address] Cheryl Monzon Creatinine [Mass/Vol] 0.66 mg/dL Normal 0.55-1.02 [facility] Comment on above: Performed By: #### T SH, LIPID, CMP #### [facility] [address] [address] [address] Cheryl Monzon EGFR-AF SALVADOREAN >60 Normal >=60 [facility] Comment on above: Performed By: #### T SH, LIPID, CMP #### [facility] [address] [address] [address] Cheryl Monzon EGFR-NON AF SALVADOREAN >60 Normal >=60 [facility] Comment on above: Performed By: #### T SH, LIPID, CMP #### [facility] [address] [address] [address] Cheryl Monzon Globulin (S) [Mass/Vol] 3.4 g/dL Normal [facility] Comment on above: Performed By: #### T SH, LIPID, CMP #### [facility] [address] [address] [address] Cheryl Monzon Glucose [Mass/Vol] 115 mg/dL Critically high 74-106 [facility] Comment on above: Performed By: #### T SH, LIPID, CMP #### [facility] [address] [address] [address] Cheryl Monzon Potassium [Moles/Vol] 4.5 mmol/L Normal 3.5-5.1 [facility] Comment on above: Performed By: #### T SH, LIPID, CMP #### [facility] [address] [address] [address] Cheryl Monzon Protein [Mass/Vol] 6.7 g/dL Normal 6.4-8.2 [facility] Comment on above: Performed By: #### T SH, LIPID, CMP #### [facility] [address] [place] [address] Dr. Cheryl Monzon Sodium [Moles/Vol] 141 mmol/L Normal 136-145 [facility] Comment on above: Performed By: #### T SH, LIPID, CMP #### [facility] [address] [place] [address] Dr. Cheryl Monzon Urea nitrogen [Mass/Vol] 16.0 mg/dL Normal 7.0-18.0 [facility] Comment on above: Performed By: #### T SH, LIPID, CMP #### [facility] [address] [place] [address] Dr. Cheryl Monzon Urea nitrogen/Creatinine [Mass ratio] 24.2 mg/mg Normal [facility] Comment on above: Performed By: #### T SH, LIPID, CMP #### [facility] [address] [place] [address] Dr. Cheryl Monzon TSHon 09-04-2022 TSH 0.009 uIU/mL Critically low 0.358-3.740 [facility] Comment on above: Performed By: #### T SH, LIPID, CMP #### [facility] [address] [place] [address] Dr. Cheryl Monzon [facility]on 05-18 SARS-CoV-2 (COVID-19) RNA ANGELA+probe Ql (Unsp spec) Not detected Normal NOT DETECTED [facility] Comment on above: Result Comment: [...] for this test is supported by the [employer] of Health and Human Service's declaration that [...] used). Performed By: #### C VDTB #### [facility] [address] [place], [place] [address] Dr. Cheryl Monzon CBC with Diffon 11-22-2021 Abs. Basophil 0.00 k/uL Normal 0.0-0.2 [facility] Comment on above: Performed By: #### C DP, CMPX, SED, LAC #### [facility] [address] [place] [address] Research Scientist: Jacob Campos MD Abs.Neutrophil (Seg) 2.80 k/uL Normal 2.5-7.0 [facility] Comment on above: Performed By: #### C DP, CMPX, SED, LAC #### [facility] [address] [place] [address] Research Scientist: Jacob Campos MD Auto Diff Performed YES Normal [facility] Comment on above: Performed By: #### C DP, CMPX, SED, LAC #### [facility] [address] [place] [address] Research Scientist: Jacob Campos MD Basophils/100 WBC (Bld) 1 % Normal 0-2 [facility] Comment on above: Performed By: #### C DP, CMPX, SED, LAC #### [facility] [address] [place] [address] Research Scientist: Jacob Campos MD Eosinophils (Bld) [#/Vol] 0.10 10*3/uL Normal 0.0-0.4 [facility] Comment on above: Performed By: #### C DP, CMPX, SED, LAC #### [facility] [address] [place] [address] Research Scientist: Jacob Campos MD Eosinophils/100 WBC (Bld) 3 % Normal 0-5 [facility] Comment on above: Performed By: #### C DP, CMPX, SED, LAC #### [facility] [address] [place], [place] [id number] Research Scientist: Jacob Campos MD Erythrocyte distribution width (RBC) [Ratio] 13.6 % Normal 12.1-15.2 [facility] Comment on above: Performed By: #### C DP, CMPX, SED, LAC #### [facility] [address] [place] [id number] Research Scientist: Jacob Campos MD Hematocrit (Bld) [Volume fraction] 33.4 % Low 36-46 [facility] Comment on above: Performed By: #### C DP, CMPX, SED, LAC #### [facility] [address] [place] [id number] Research Scientist: Jacob Campos MD Hemoglobin (Bld) [Mass/Vol] 11.3 g/dL Low 12.0-16.0 [facility] Comment on above: Performed By: #### C DP, CMPX, SED, LAC #### [facility] [address] [place] [id number] Research Scientist: Jacob Campos MD Lymphocytes (Bld) [#/Vol] 0.80 10*3/uL Low 1.0-4.8 [facility] Comment on above: Performed By: #### C DP, CMPX, SED, LAC #### [facility] [address] [place] [address] Research Scientist: Jacob Campos MD Lymphocytes/100 WBC (Bld) 19 % Normal 15-40 [facility] Comment on above: Performed By: #### C DP, CMPX, SED, LAC #### [facility] [address] [place] [id number] Research Scientist: Jacob Campos MD MCH (RBC) [Entitic mass] 30.5 pg Normal 26-34 [facility] Comment on above: Performed By: #### C DP, CMPX, SED, LAC #### [facility] [address] [place], [place] [id number] Research Scientist: Jacob Campos MD MCHC (RBC) [Mass/Vol] 33.8 g/dL Normal 31-37 [facility] Comment on above: Performed By: #### C DP, CMPX, SED, LAC #### [facility] [address] [place], [place] [id number] Research Scientist: Jacob Campos MD MCV (RBC) [Entitic vol] 90.4 fL Normal 80-100 [facility] Comment on above: Performed By: #### C DP, CMPX, SED, LAC #### [facility] [address] [place], [place] [id number] Research Scientist: Jacob Campos MD Monocytes (Bld) [#/Vol] 0.50 10*3/uL Normal 0.0-1.0 [facility] Comment on above: Performed By: #### C DP, CMPX, SED, LAC #### [facility] [address] [place], [place] [id number] Research Scientist: Jacob Campos MD Monocytes/100 WBC (Bld) 12 % High 4-8 [facility] Comment on above: Performed By: #### C DP, CMPX, SED, LAC #### [facility] [address] [place], [place] [phone] Research Scientist: Jacob Campos MD Neutrophil (Seg) 65 % Normal 47-75 [facility] Comment on above: Performed By: #### C DP, CMPX, SED, LAC #### [facility] [address] [place], [place] [id number] Research Scientist: Jacob Campos MD Platelets (Bld) [#/Vol] 378 10*3/uL Normal 140-450 [facility] Comment on above: Performed By: #### C DP, CMPX, SED, LAC #### [facility] [address] [place] [address] Research Scientist: Jacob Campos MD RBC (Bld) [#/Vol] 3.70 10*6/uL Low 4.0-5.2 [facility] Comment on above: Performed By: #### C DP, CMPX, SED, LAC #### [facility] [address] [place] [address] Research Scientist: Jacob Campos MD WBC (Bld) [#/Vol] 4.3 10*3/uL Normal 3.5-11.0 [facility] Comment on above: Performed By: #### C DP, CMPX, SED, LAC #### [facility] [address] [place] [address] Research Scientist: Jacob Campos MD Comp Metabolic Pr/rfx MGon 0 11-22-2021 (cont.) Normal [facility] Comment on above: Result Comment: Aver age GFR for 60-69 years old: 85 mL/min/1.73sq m Chronic Kidney Disease: <60 mL/min/1.73sq m Kidney failure: <15 mL/min/1.73sq m eGFR calculated using average adult body mass. Additional eGFR calculator available at: http://www.WinView.CloudWalk/multiple_crcl_2012.htm Performed By: #### C DP, CMPX, SED, LAC #### [facility] [address] [place] [address] Research Scientist: Jacob Campos MD Albumin [Mass/Vol] 3.5 g/dL Normal 3.5-5.2 [facility] Comment on above: Performed By: #### C DP, CMPX, SED, LAC #### [facility] [address] [place], [place] [phone] Research Scientist: Jacob Campos MD Alkaline Phos 239 U/L High 35-104 [facility] Comment on above: Performed By: #### C DP, CMPX, SED, LAC #### [facility] [address] [place], [place] [phone] Research Scientist: Jacob Campos MD ALT [Catalytic activity/Vol] 23 U/L Normal 5-33 [facility] Comment on above: Performed By: #### C DP, CMPX, SED, LAC #### [facility] [address] [place], [place] [id number] Research Scientist: Jacob Campos MD Anion gap [Moles/Vol] 11 mmol/L Normal 9-17 [facility] Comment on above: Performed By: #### C DP, CMPX, SED, LAC #### [facility] [address] [place], [place] [phone] Research Scientist: Jacob Campos MD AST [Catalytic activity/Vol] 21 U/L Normal <32 [facility] Comment on above: Performed By: #### C DP, CMPX, SED, LAC #### [facility] [address] [place], [place] [phone] Research Scientist: Jacob Campos MD Bilirubin [Mass/Vol] 0.27 mg/dL Low 0.30-1.20 [facility] Comment on above: Performed By: #### C DP, CMPX, SED, LAC #### [facility] [address] [place], [place] [id number] Research Scientist: Jacob Campos MD BUN/CRE Ratio 22 High 9-20 [facility] Comment on above: Performed By: #### C DP, CMPX, SED, LAC #### [facility] [address] [place], [place] [phone] Research Scientist: Jacob Campos MD Calcium [Mass/Vol] 9.5 mg/dL Normal 8.6-10.4 [facility] Comment on above: Performed By: #### C DP, CMPX, SED, LAC #### [facility] [address] [place] [id number] Research Scientist: Jacob Campos MD Chloride [Moles/Vol] 102 mmol/L Normal 98-107 [facility] Comment on above: Performed By: #### C DP, CMPX, SED, LAC #### [facility] [address] [place] [id number] Research Scientist: Jacob Campos MD CO2 [Moles/Vol] 26 mmol/L Normal 20-31 [facility] Comment on above: Performed By: #### C DP, CMPX, SED, LAC #### [facility] [address] [place] [id number] Research Scientist: Jacob Campos MD Creatinine [Mass/Vol] 0.58 mg/dL Normal 0.50-0.90 [facility] Comment on above: Performed By: #### C DP, CMPX, SED, LAC #### [facility] [address] [place] [id number] Research Scientist: Jacob Campos MD GFR, Amer >60 Normal >60 [facility] Comment on above: Performed By: #### C DP, CMPX, SED, LAC #### [facility] [address] [place] [address] Research Scientist: Jacob Campos MD GFR,non Amer >60 Normal >60 [facility] Comment on above: Performed By: #### C DP, CMPX, SED, LAC #### [facility] [address] [place] [phone] Research Scientist: Jacob Campos MD Glucose [Mass/Vol] 109 mg/dL High 70-99 [facility] Comment on above: Performed By: #### C DP, CMPX, SED, LAC #### [facility] [address] [place], [place] [phone] Research Scientist: Jacob Campos MD Potassium [Moles/Vol] 3.7 mmol/L Normal 3.7-5.3 [facility] Comment on above: Performed By: #### C DP, CMPX, SED, LAC #### [facility] [address] [place] [address] Research Scientist: Jacob Campos MD Protein [Mass/Vol] 7.0 g/dL Normal 6.4-8.3 [facility] Comment on above: Performed By: #### C DP, CMPX, SED, LAC #### [facility] [address] [place] [address] Research Scientist: Jacob Campos MD Sodium [Moles/Vol] 139 mmol/L Normal 135-144 [facility] Comment on above: Performed By: #### C DP, CMPX, SED, LAC #### [facility] [address] [place] [phone] Research Scientist: Jacob Campos MD Urea nitrogen [Mass/Vol] 13 mg/dL Normal 8-23 [facility] Comment on above: Performed By: #### C DP, CMPX, SED, LAC #### [facility] [address] [place] [address] Research Scientist: Jacob Campos MD Lactic Acidon 11-22-2021 Lactate [Moles/Vol] 0.7 mmol/L Normal 0.5-2.2 [facility] Comment on above: Performed By: #### C DP, CMPX, SED, LAC #### [facility] [address] [place] [address] Research Scientist: Jacob Campos MD Sedimentation Rateon 022 Sedimentation Rate 48 mm High 0-30 [facility] Comment on above: Performed By: #### C DP, CMPX, SED, LAC #### [facility] [address] [place] [address] Research Scientist: Jacob Campos MD Urinalysis, Routineon 2021 Bilirubin, SemiQt,Ur Negative Normal NEG [facility] Comment on above: Performed By: #### U A #### [facility] [address] [place], [place] [id number] Research Scientist: Jacob Campos MD Blood, Urine Negative Normal NEG [facility] Comment on above: Performed By: #### U A #### [facility] [address] [place] [address] Research Scientist: Jacob Campos MD Clarity (U) Clear Normal CLEAR [facility] Comment on above: Performed By: #### U A #### [facility] [address] [place], [place] [phone] Research Scientist: Jacob Campos MD Color (U) Yellow Normal YEL [facility] Comment on above: Performed By: #### U A #### [facility] [address] [place], [place] [phone] Research Scientist: Jacob Campos MD Comment Normal [facility] Comment on above: Performed By: #### U A #### [facility] [address] [place], [place] [phone] Research Scientist: Jacob Campos MD Glucose Ql (U) Negative Normal NEG [facility] Comment on above: Performed By: #### U A #### [facility] [address] [place] [address] Research Scientist: Jacob Campos MD Ketones Ql (U) Negative Normal NEG [facility] Comment on above: Performed By: #### U A #### [facility] [address] [place], [place] [phone] Research Scientist: Jacob Campos MD Leukocyte esterase Test strip Ql (U) Negative Normal NEG [facility] Comment on above: Performed By: #### U A #### [facility] [address] [place], [place] [phone] Research Scientist: Jacob Campos MD Nitrite,Ur Negative Normal NEG [facility] Comment on above: Performed By: #### U A #### [facility] [address] [place], [place] [phone] Research Scientist: Jacob Campos MD PH,Ur 6.5 Normal 5.0-8.0 [facility] Comment on above: Performed By: #### U A #### [facility] [address] [place], [place] [phone] Research Scientist: Jacob Campos MD Protein Ql (U) Negative Normal NEG [facility] Comment on above: Performed By: #### U A #### [facility] [address] [place], [place] [phone] Research Scientist: Jacob Campos MD Spec. [place],Ur 1.015 Normal 1.005-1.030 [facility] Comment on above: Performed By: #### U A #### [facility] [address] [place], [place] [id number] Research Scientist: Jacob Campos MD Urobilinogen,Ur Normal Normal NORM [facility] Comment on above: Performed By: #### U A #### [facility] [address] [place], [place] [phone] Research Scientist: Jacob Campos MD Basic Metabolic Panelon Calcium [Mass/Vol] 9.4 mg/dL Normal 8.2-10.2 [facility] Comment on above: Performed By: #### C BC, BMP #### [facility] [address] [place] [address] [place] Chloride [Moles/Vol] 101 mmol/L Normal 95-114 [facility] Comment on above: Performed By: #### C BC, BMP #### [facility] [address] [place] [address] [place] CO2 [Moles/Vol] 26.3 mmol/L Normal 22.0-30.0 [facility] Comment on above: Performed By: #### C BC, BMP #### [facility] [address] Creatinine [Mass/Vol] 0.72 mg/dL Normal 0.44-1.03 [facility] Comment on above: Performed By: #### C BC, BMP #### [facility] [address] [place] [address] [place] [facility] 76.81 [facility] Comment on above: Result Comment: PERF ORMED BY: [place] [address] PATHOLOGIST BILLING MANAGER CLAIRE ANTHONY M.D. Performed By: #### C BC, BMP #### [facility] [address] Estimated GFR ( Damon > 60 [facility] Comment on above: Result Comment: GFR estimated reference range: According to KDOQI guidelines, <60 ml/min/1.73m2 is sufficient to diagnose a patient with chronic kidney disease. Performed By: #### C BC, BMP #### [address] Estimated GFR (Non- Am > 60 [facility] Comment on above: Performed By: #### C BC, BMP #### [facility] [address] [place] [address] [place] Glucose [Mass/Vol] 104 mg/dL High 70-100 [facility] Comment on above: Result Comment: [place] Glucose Reference Range is dependent on time and content of last meal. Glucose of more than 200 mg/dL in a nonstressed, ambulatory subject supports the diagnosis of Diabetes Mellitus. ADA recommended reference range Performed By: #### C BC, BMP #### [facility] [address] [place] [address] [place] Potassium [Moles/Vol] 3.8 mmol/L Normal 3.5-5.1 [facility] Comment on above: Performed By: #### C BC, BMP #### [facility] [address] Sodium [Moles/Vol] 138 mmol/L Normal 136-146 [facility] Comment on above: Performed By: #### C BC, BMP #### [facility] [address] Urea nitrogen [Mass/Vol] 13 mg/dL Normal 9-23 [facility] Comment on above: Performed By: #### C BC, BMP #### [facility] [address] CBC with Diffon 11-21-2021 Abs.Imm.Granulocyte NOT REPORTED Normal 0.00-0.30 [facility] Comment on above: Performed By: #### C DP, CMPX, SED, LAC #### [facility] [address] [place] [address] Research Scientist: Jacob Camops MD Immature Granulocyte NOT REPORTED Normal 0 [facility] Comment on above: Performed By: #### C DP, CMPX, SED, LAC #### [facility] [address] [place] [address] Research Scientist: Jacob Campos MD MPV NOT REPORTED Normal 6.0-12.0 [facility] Comment on above: Performed By: #### C DP, CMPX, SED, LAC #### [facility] [address] [place] [id number] Research Scientist: Jacob Campos MD NRBC Automated NOT REPORTED Normal [facility] Comment on above: Performed By: #### C DP, CMPX, SED, LAC #### [facility] [address] [place] [id number] Research Scientist: Jacob Campos MD Platelet Comment NOT REPORTED Normal [facility] Comment on above: Performed By: #### C DP, CMPX, SED, LAC #### [facility] [address] [place], [place] [id number] Research Scientist: Jacob Campos MD RBC morphology finding Nom (Bld) NOT REPORTED Normal [facility] Comment on above: Performed By: #### C DP, CMPX, SED, LAC #### [facility] [address] [place] [id number] Research Scientist: Jacob Campos MD WBC Morphology NOT REPORTED Normal [facility] Comment on above: Performed By: #### C DP, CMPX, SED, LAC #### [facility] [address] [place] [id number] Research Scientist: Jacob Campos MD Comp Metabolic Pr/rfx MGon 0 11-21-2021 Albumin/Glob Ratio NOT REPORTED Normal 1.0-2.5 [facility] Comment on above: Performed By: #### C DP, CMPX, SED, LAC #### [facility] [address] [place] [address] Research Scientist: Jacob Campos MD Staging: NOT REPORTED Normal [facility] Comment on above: Performed By: #### C DP, CMPX, SED, LAC #### [facility] [address] [place] [address] Research Scientist: Jacob Campos MD Complete Blood Count Auto Di ffon 11-21-2021 Basophils (Bld) [#/Vol] 0.0 10*3/uL Normal 0.0-0.2 [facility] Comment on above: Result Comment: PERF ORMED BY: [place] [id number] PATHOLOGIST BILLING MANAGER CLAIRE ANTHONY M.D. Performed By: #### C BC, BMP #### [place] [address] [place] Basophils/100 WBC (Bld) 0.7 % Normal . [facility] Comment on above: Performed By: #### C BC, BMP #### [facility] [address] [place] [address] [place] Eosinophils (Bld) [#/Vol] 0.1 10*3/uL Normal 0.0-0.45 [facility] Comment on above: Performed By: #### C BC, BMP #### [facility] [address] [place] [address] [place] Eosinophils/100 WBC (Bld) 2.8 % Normal . [facility] Comment on above: Performed By: #### C BC, BMP #### [facility] [address] Erythrocyte distribution width (RBC) [Ratio] 13.2 % Normal 11.9-15.3 [facility] Comment on above: Performed By: #### C BC, BMP #### [facility] [address] Hematocrit (Bld) [Volume fraction] 35.7 % Normal 34.0-46.4 [facility] Comment on above: Performed By: #### C BC, BMP #### [facility] [address] [place] [address] [place] Hemoglobin (Bld) [Mass/Vol] 11.9 g/dL Normal 11.8-15.4 [facility] Comment on above: Performed By: #### C BC, BMP #### [facility] [address] [place] [address] [place] Lymphocytes (Bld) [#/Vol] 0.8 10*3/uL Low 1.00-4.8 [facility] Comment on above: Performed By: #### C BC, BMP #### [facility] [address] [place] [id number] [place] Lymphocytes/100 WBC (Bld) 16.7 % Normal . [facility] Comment on above: Performed By: #### C BC, BMP #### [facility] [address] [place] [id number] [facility] MCH (RBC) [Entitic mass] 30.2 pg Normal 24.7-34.3 [facility] Comment on above: Performed By: #### C BC, BMP #### [facility] [address] [place] [address] [place] MCV (RBC) [Entitic vol] 90.6 fL Normal 80-100 [facility] Comment on above: Performed By: #### C BC, BMP #### [facility] [address] Mean Corpuscular HGB Conc 33.3 g/dL Normal 32.0-35.0 [facility] Comment on above: Performed By: #### C BC, BMP #### [facility] [address] [place] [address] [place] Monocytes (Bld) [#/Vol] 0.4 10*3/uL Normal 0.0-0.8 [facility] Comment on above: Performed By: #### C BC, BMP #### [facility] [address] [place] [address] [place] Monocytes/100 WBC (Bld) 9.1 % Normal . [facility] Comment on above: Performed By: #### C BC, BMP #### [facility] [address] [place] [address] [place] Neutrophils (Bld) [#/Vol] 3.4 10*3/uL Normal 1.8-7.7 [facility] Comment on above: Performed By: #### C BC, BMP #### [facility] [address] [place] [address] [place] Neutrophils/100 WBC (Bld) 70.7 % Normal . [facility] Comment on above: Performed By: #### C BC, BMP #### [facility] [address] [place] [address] [place] Nucleated RBC/100 WBC (Bld) [Ratio] 0.0 % Normal 0-0.5 [facility] Comment on above: Performed By: #### C BC, BMP #### [facility] [address] [place] [address] [place] Platelet mean volume (Bld) [Entitic vol] 6.9 fL Normal 6.3-10.7 [facility] Comment on above: Performed By: #### C BC, BMP #### [facility] [address] [place] [address] [place] Platelets (Bld) [#/Vol] 423 10*3/uL Normal 150-450 [facility] Comment on above: Performed By: #### C BC, BMP #### [facility] [address] RBC (Bld) [#/Vol] 3.94 10*6/uL Normal 3.60-5.00 [facility] Comment on above: Performed By: #### C BC, BMP #### [facility] [address] WBC (Bld) [#/Vol] 4.8 10*3/uL Normal 4.5-11.0 [facility] Comment on above: Performed By: #### C BC, BMP #### [place] [address] [place] Dipstick and Microscopicon 0 11-21-2021 Appearance (U) Clear Normal Clear [facility] Comment on above: Order Comment: Name Collection Type:: Clean-Voided Midstream Performed By: #### C BC, BMP #### [place] [address] [place] Bacteria,Urine None Seen Normal None Seen [facility] Comment on above: Order Comment: Name Collection Type:: Clean-Voided Midstream Performed By: #### C BC, BMP #### [place] [address] [place] Bilirubin,Urine Negative Normal Negative [facility] Comment on above: Order Comment: Name Collection Type:: Clean-Voided Midstream Performed By: #### C BC, BMP #### [facility] [address] [place] [address] [place] Color (U) Yellow Normal Yellow [facility] Comment on above: Order Comment: Name Collection Type:: Clean-Voided Midstream Performed By: #### C BC, BMP #### [place] [address] [place] Glucose Ql (U) Normal Normal Normal [facility] Comment on above: Order Comment: Name Collection Type:: Clean-Voided Midstream Performed By: #### C BC, BMP #### [facility] [address] [place] [address] Hyaline Casts,Urine 0-8 Normal 0-8 [facility] Comment on above: Order Comment: Name Collection Type:: Clean-Voided Midstream Result Comment: PERF ORMED BY: [place] [address] PATHOLOGIST BILLING MANAGER CLAIRE ANTHONY M.D. Performed By: #### C BC, BMP #### [address] Ketones Ql (U) Negative Normal Negative [facility] Comment on above: Order Comment: Name Collection Type:: Clean-Voided Midstream Performed By: #### C BC, BMP #### [address] Leukocyte esterase Test strip Ql (U) 1+ High Negative [facility] Comment on above: Order Comment: Name Collection Type:: Clean-Voided Midstream Performed By: #### C BC, BMP #### [place] [address] [place] Nitrite,Urine Negative Normal Negative [facility] Comment on above: Order Comment: Name Collection Type:: Clean-Voided Midstream Performed By: #### C BC, BMP #### [place] [address] [place] Occult Blood,Urine Negative Normal Negative [facility] Comment on above: Order Comment: Name Collection Type:: Clean-Voided Midstream Result Comment: PERF ORMED BY: [place] [address] PATHOLOGIST BILLING MANAGER CLAIRE ANTHONY M.D. Performed By: #### C BC, BMP #### [facility] [address] [place] [address] [place] pH (U) 6.5 [pH] Normal 5.0-9.0 [facility] Comment on above: Order Comment: Name Collection Type:: Clean-Voided Midstream Performed By: #### C BC, BMP #### [facility] [address] [place] [address] Protein,Urine Negative Normal Negative [facility] Comment on above: Order Comment: Name Collection Type:: Clean-Voided Midstream Performed By: #### C BC, BMP #### [address] RBC,Urine 1-2 Normal 0-4 [facility] Comment on above: Order Comment: Name Collection Type:: Clean-Voided Midstream Performed By: #### C BC, BMP #### [address] Specificy [place],Urine 1.014 Normal 1.001-1.030 [facility] Comment on above: Order Comment: Name Collection Type:: Clean-Voided Midstream Performed By: #### C BC, BMP #### [address] Squamous Epithelial Cell,Urine None Seen Normal 0-2 [facility] Comment on above: Order Comment: Name Collection Type:: Clean-Voided Midstream Performed By: #### C BC, BMP #### [address] Urobilinogen,Urine Normal Normal Normal [facility] Comment on above: Order Comment: Name Collection Type:: Clean-Voided Midstream Performed By: #### C BC, BMP #### [facility] [address] [place] [address] [place] WBC,Urine 1-2 Normal 0-4 [facility] Comment on above: Order Comment: Name Collection Type:: Clean-Voided Midstream Performed By: #### C BC, BMP #### [address] Complete Blood Count Auto Di ffon 11-04-2021 Basophils (Bld) [#/Vol] 0.0 10*3/uL Normal 0.0-0.2 [facility] Comment on above: Result Comment: PERF ORMED BY: [place] [address] PATHOLOGIST BILLING MANAGER CLAIRE ANTHONY M.D. Performed By: #### C BC, BMP #### [facility] [address] Basophils/100 WBC (Bld) 0.1 % Normal . [facility] Comment on above: Performed By: #### C BC, BMP #### [facility] [address] [place] [address] [place] Eosinophils (Bld) [#/Vol] 0.1 10*3/uL Normal 0.0-0.45 [facility] Comment on above: Performed By: #### C BC, BMP #### [facility] [address] Eosinophils/100 WBC (Bld) 1.3 % Normal . [facility] Comment on above: Performed By: #### C BC, BMP #### [facility] [address] Erythrocyte distribution width (RBC) [Ratio] 13.0 % Normal 11.9-15.3 [facility] Comment on above: Performed By: #### C BC, BMP #### [facility] [address] Hematocrit (Bld) [Volume fraction] 27.5 % Low 34.0-46.4 [facility] Comment on above: Performed By: #### C BC, BMP #### [facility] [address] [place] [address] [place] Hemoglobin (Bld) [Mass/Vol] 9.3 g/dL Low 11.8-15.4 [facility] Comment on above: Performed By: #### C BC, BMP #### [facility] [address] [place] [address] [place] Lymphocytes (Bld) [#/Vol] 0.5 10*3/uL Low 1.00-4.8 [facility] Comment on above: Performed By: #### C BC, BMP #### [facility] [address] [place] [address] [place] Lymphocytes/100 WBC (Bld) 6.3 % Normal . [facility] Comment on above: Performed By: #### C BC, BMP #### [facility] [address] MCH (RBC) [Entitic mass] 31.1 pg Normal 24.7-34.3 [facility] Comment on above: Performed By: #### C BC, BMP #### [facility] [address] MCV (RBC) [Entitic vol] 92.0 fL Normal 80-100 [facility] Comment on above: Performed By: #### C BC, BMP #### [facility] [address] Mean Corpuscular HGB Conc 33.8 g/dL Normal 32.0-35.0 [facility] Comment on above: Performed By: #### C BC, BMP #### [facility] [address] Monocytes (Bld) [#/Vol] 0.8 10*3/uL Normal 0.0-0.8 [facility] Comment on above: Performed By: #### C BC, BMP #### [facility] [address] [place] [address] [place] Monocytes/100 WBC (Bld) 10.8 % Normal . [facility] Comment on above: Performed By: #### C BC, BMP #### [facility] [address] [place] [address] [place] Neutrophils (Bld) [#/Vol] 5.9 10*3/uL Normal 1.8-7.7 [facility] Comment on above: Performed By: #### C BC, BMP #### [facility] [address] [place] [address] [place] Neutrophils/100 WBC (Bld) 81.5 % Normal . [facility] Comment on above: Performed By: #### C BC, BMP #### [facility] [address] Nucleated RBC/100 WBC (Bld) [Ratio] 0.0 % Normal 0-0.5 [facility] Comment on above: Performed By: #### C BC, BMP #### [facility] [address] Platelet mean volume (Bld) [Entitic vol] 7.4 fL Normal 6.3-10.7 [facility] Comment on above: Performed By: #### C BC, BMP #### [facility] [address] Platelets (Bld) [#/Vol] 135 10*3/uL Low 150-450 [facility] Comment on above: Performed By: #### C BC, BMP #### [facility] [address] RBC (Bld) [#/Vol] 2.99 10*6/uL Low 3.60-5.00 [facility] Comment on above: Performed By: #### C BC, BMP #### [facility] [address] WBC (Bld) [#/Vol] 7.3 10*3/uL Normal 4.5-11.0 [facility] Comment on above: Performed By: #### C BC, BMP #### [address] Electrolyteson 11-04-2021 Chloride [Moles/Vol] 106 mmol/L Normal 95-114 [facility] Comment on above: Performed By: #### C BC, BMP #### [address] CO2 [Moles/Vol] 25.2 mmol/L Normal 22.0-30.0 [facility] Comment on above: Result Comment: PERF ORMED BY: [place] [address] PATHOLOGIST BILLING MANAGER CLAIRE ANTHONY M.D. Performed By: #### C BC, BMP #### [address] Potassium [Moles/Vol] 3.7 mmol/L Normal 3.5-5.1 [facility] Comment on above: Performed By: #### C BC, BMP #### [address] Sodium [Moles/Vol] 137 mmol/L Normal 136-146 [facility] Comment on above: Performed By: #### C BC, BMP #### [address] Complete Blood Count Auto Di ffon 11-03-2021 Basophils (Bld) [#/Vol] 0.0 10*3/uL Normal 0.0-0.2 [facility] Comment on above: Result Comment: PERF ORMED BY: [place] [address] PATHOLOGIST BILLING MANAGER CLAIRE ANTHONY M.D. Performed By: #### C BC, BMP #### [address] Basophils/100 WBC (Bld) 0.1 % Normal . [facility] Comment on above: Performed By: #### C BC, BMP #### [address] Eosinophils (Bld) [#/Vol] 0.0 10*3/uL Normal 0.0-0.45 [facility] Comment on above: Performed By: #### C BC, BMP #### [address] Eosinophils/100 WBC (Bld) 0.3 % Normal . [facility] Comment on above: Performed By: #### C BC, BMP #### [address] Erythrocyte distribution width (RBC) [Ratio] 12.8 % Normal 11.9-15.3 [facility] Comment on above: Performed By: #### C BC, BMP #### [address] Hematocrit (Bld) [Volume fraction] 29.5 % Low 34.0-46.4 [facility] Comment on above: Performed By: #### C BC, BMP #### [address] Hemoglobin (Bld) [Mass/Vol] 9.9 g/dL Low 11.8-15.4 [facility] Comment on above: Performed By: #### C BC, BMP #### [address] Lymphocytes (Bld) [#/Vol] 0.5 10*3/uL Low 1.00-4.8 [facility] Comment on above: Performed By: #### C BC, BMP #### [address] Lymphocytes/100 WBC (Bld) 7.4 % Normal . [facility] Comment on above: Performed By: #### C BC, BMP #### [address] MCH (RBC) [Entitic mass] 30.9 pg Normal 24.7-34.3 [facility] Comment on above: Performed By: #### C BC, BMP #### [address] MCV (RBC) [Entitic vol] 92.1 fL Normal 80-100 [facility] Comment on above: Performed By: #### C BC, BMP #### [address] Mean Corpuscular HGB Conc 33.6 g/dL Normal 32.0-35.0 [facility] Comment on above: Performed By: #### C BC, BMP #### [place] [address] [place] Monocytes (Bld) [#/Vol] 0.7 10*3/uL Normal 0.0-0.8 [facility] Comment on above: Performed By: #### C BC, BMP #### [place] [address] [place] Monocytes/100 WBC (Bld) 10.0 % Normal . [facility] Comment on above: Performed By: #### C BC, BMP #### [place] [address] [place] Neutrophils (Bld) [#/Vol] 5.8 10*3/uL Normal 1.8-7.7 [facility] Comment on above: Performed By: #### C SANTANA, BMP #### [facility] [address] Neutrophils/100 WBC (Bld) 82.2 % Normal . [facility] Comment on above: Performed By: #### C SANTANA, BMP #### [facility] [address] Nucleated RBC/100 WBC (Bld) [Ratio] 0.0 % Normal 0-0.5 [facility] Comment on above: Performed By: #### C SANTANA, BMP #### [facility] [address] Platelet mean volume (Bld) [Entitic vol] 8.1 fL Normal 6.3-10.7 [facility] Comment on above: Performed By: #### C SANTANA, BMP #### [facility] [address] Platelets (Bld) [#/Vol] 153 10*3/uL Normal 150-450 [facility] Comment on above: Performed By: #### C SANTANA, BMP #### [address] RBC (Bld) [#/Vol] 3.21 10*6/uL Low 3.60-5.00 [facility] Comment on above: Performed By: #### C SANTANA, BMP #### [facility] [address] WBC (Bld) [#/Vol] 7.0 10*3/uL Normal 4.5-11.0 [facility] Comment on above: Performed By: #### C SANTANA, BMP #### [facility] [address] Electrolyteson 11-03-2021 Chloride [Moles/Vol] 104 mmol/L Normal 95-114 [facility] Comment on above: Performed By: #### C SANTANA, BMP #### [facility] [address] CO2 [Moles/Vol] 28.5 mmol/L Normal 22.0-30.0 [facility] Comment on above: Result Comment: PERF ORMED BY: [place] [address] PATHOLOGIST BILLING MANAGER CLAIRE ANTHONY M.D. Performed By: #### C BC, BMP #### [facility] [address] [place] [address] Potassium [Moles/Vol] 4.2 mmol/L Normal 3.5-5.1 [facility] Comment on above: Performed By: #### Salvatore BC, BMP #### [address] Sodium [Moles/Vol] 139 mmol/L Normal 136-146 [facility] Comment on above: Performed By: #### Salvatore DILLON, BMP #### [address] 11-02-2021 L -- ---- Specimen: [id number] Received: 11/02/21 Status: GARRETT Campuzano Num: [id number] Spec Type: Surgical Subm Dr: Dylan Gatica Jr, DO Tissues: A Gross Only (BONE/TISSUE RT HIP) Procedures: Level 1 Gross ---- Patient Age/Sex Location Account Attending Physician ---- Isabel Waddell 61/F 4N [id number] Dylan Gatica Jr, DO ---- SPEC NUM: [id number] RECD: 11/02/21 STATUS: GARRETT MAGANAMely NUM: [id number] FRANCISCA: 11/02/[address] [facility] [address]: Dylan Gatica Jr, DO ENTERED: 11/02/[address] [facility] [address]: MARTIN TYPE: Surgical DEPT: S [...] only. (SM/JS) Microscopic Description Gross examination only. [id number] ---- ---- Specimen: [id number] Received: 11/02/21 Status: GARRETT Campuzano Num: [id number] Spec Type: Surgical Subm Dr: Dylan Gatica Jr, DO Tissues: A Gross Only (BONE/TISSUE RT HIP) Procedures: Level 1 Gross ---- Patient: Isabel Waddell [id number] (Continued) ---- Signed (signature on file) Claire Anthony MD 11/02/21 [id number] [facility] LeukoReduced RBCon LeukoReduced RBC READY Normal [facility] Type and Screenon 11-02-2021 ABO and Rh group Nom (Bld) Blood group O Rh(D) positive [facility] Comment on above: Order Comment: Trans fuse now? N XR low pelvis w/RT x-table h ipon 11-02-2021 XR low pelvis w/RT x-table hip [facility] [place] [address] XRay Report Signed Patient: Isabel Waddell MR#: [id number] : 1960 Acct:[id number] Age/Sex: 61 / F ADM Date: 11/02/21 Loc: Room: 7L7416-5 Type: [facility] Attending Dr: Dylan Gatica Jr, DO [...] Shiva Stafford M.D.11/02/2021 2:41 PM Dictation Location: [place] [address] Transcribed By: 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 This test has not been FDA cleared [...] is terminated or revoked sooner. PERFORMED BY: [place] [address] PATHOLOGIST BILLING MANAGER CLAIRE ANTHONY M.D. Performed By: #### C BC, BMP #### [address] Basic Metabolic Panelon 11-2 Calcium [Mass/Vol] 9.3 mg/dL Normal 8.2-10.2 [facility] Comment on above: Result Comment: PERF ORMED BY: [place] [address] PATHOLOGIST BILLING MANAGER CLAIRE ANTHONY M.D. Performed By: #### C BC, BMP #### [place] [id number] [facility] Chloride [Moles/Vol] 104 mmol/L Normal 95-114 [facility] Comment on above: Performed By: #### C BC, BMP #### [place] [id number] [place] CO2 [Moles/Vol] 28.3 mmol/L Normal 22.0-30.0 [facility] Comment on above: Performed By: #### C BC, BMP #### [facility] [address] Creatinine [Mass/Vol] 0.61 mg/dL Normal 0.44-1.03 [facility] Comment on above: Performed By: #### C BC, BMP #### [address] Estimated GFR ( Damon > 60 [facility] Comment on above: Result Comment: GFR estimated reference range: According to KDOQI guidelines, <60 ml/min/1.73m2 is sufficient to diagnose a patient with chronic kidney disease. Performed By: #### C BC, BMP #### [address] Estimated GFR (Non- Am > 60 [facility] Comment on above: Performed By: #### C BC, BMP #### [address] Glucose [Mass/Vol] 100 mg/dL Normal 70-100 [facility] Comment on above: Result Comment: [place] om Glucose Reference Range is dependent on time and content of last meal. Glucose of more than 200 mg/dL in a nonstressed, ambulatory subject supports the diagnosis of Diabetes Mellitus. ADA recommended reference range Performed By: #### C BC, BMP #### [address] Potassium [Moles/Vol] 4.7 mmol/L Normal 3.5-5.1 [facility] Comment on above: Performed By: #### C BC, BMP #### [facility] [address] [place] [id number] [facility] Sodium [Moles/Vol] 140 mmol/L Normal 136-146 [facility] Comment on above: Performed By: #### C BC, BMP #### [address] Urea nitrogen [Mass/Vol] 17 mg/dL Normal 9-23 [facility] Comment on above: Performed By: #### C BC, BMP #### [facility] [address] [place] [address] Complete Blood Count Auto Di ffon 10-15-2021 Basophils (Bld) [#/Vol] 0.0 10*3/uL Normal 0.0-0.2 [facility] Comment on above: Result Comment: PERF ORMED BY: [place] [address] PATHOLOGIST BILLING MANAGER CLAIRE ANTHONY M.D. Performed By: #### C BC, BMP #### [address] Basophils/100 WBC (Bld) 0.4 % Normal . [facility] Comment on above: Performed By: #### C BC, BMP #### [address] Eosinophils (Bld) [#/Vol] 0.1 10*3/uL Normal 0.0-0.45 [facility] Comment on above: Performed By: #### C BC, BMP #### [address] Eosinophils/100 WBC (Bld) 2.1 % Normal . [facility] Comment on above: Performed By: #### C BC, BMP #### [address] Erythrocyte distribution width (RBC) [Ratio] 13.0 % Normal 11.9-15.3 [facility] Comment on above: Performed By: #### C BC, BMP #### [address] Hematocrit (Bld) [Volume fraction] 36.8 % Normal 34.0-46.4 [facility] Comment on above: Performed By: #### C BC, BMP #### [address] Hemoglobin (Bld) [Mass/Vol] 12.4 g/dL Normal 11.8-15.4 [facility] Comment on above: Performed By: #### C BC, BMP #### [facility] [address] [place] [address] [place] Lymphocytes (Bld) [#/Vol] 0.5 10*3/uL Low 1.00-4.8 [facility] Comment on above: Performed By: #### C BC, BMP #### [facility] [address] Lymphocytes/100 WBC (Bld) 18.8 % Normal . [facility] Comment on above: Performed By: #### C BC, BMP #### [facility] [address] MCH (RBC) [Entitic mass] 31.3 pg Normal 24.7-34.3 [facility] Comment on above: Performed By: #### C BC, BMP #### [address] MCV (RBC) [Entitic vol] 92.8 fL Normal 80-100 [facility] Comment on above: Performed By: #### C BC, BMP #### [address] Mean Corpuscular HGB Conc 33.7 g/dL Normal 32.0-35.0 [facility] Comment on above: Performed By: #### C BC, BMP #### [place] [address] [place] Monocytes (Bld) [#/Vol] 0.3 10*3/uL Normal 0.0-0.8 [facility] Comment on above: Performed By: #### C BC, BMP #### [place] [address] [place] Monocytes/100 WBC (Bld) 10.8 % Normal . [facility] Comment on above: Performed By: #### C BC, BMP #### [address] Neutrophils (Bld) [#/Vol] 1.9 10*3/uL Normal 1.8-7.7 [facility] Comment on above: Performed By: #### C BC, BMP #### [facility] [address] Neutrophils/100 WBC (Bld) 67.9 % Normal . [facility] Comment on above: Performed By: #### C BC, BMP #### [facility] [address] [place] [address] [place] Nucleated RBC/100 WBC (Bld) [Ratio] 0.1 % Normal 0-0.5 [facility] Comment on above: Performed By: #### C BC, BMP #### [address] Platelet mean volume (Bld) [Entitic vol] 7.4 fL Normal 6.3-10.7 [facility] Comment on above: Performed By: #### C BC, BMP #### [address] Platelets (Bld) [#/Vol] 198 10*3/uL Normal 150-450 [facility] Comment on above: Performed By: #### C BC, BMP #### [place] [address] [place] RBC (Bld) [#/Vol] 3.97 10*6/uL Normal 3.60-5.00 [facility] Comment on above: Performed By: #### C BC, BMP #### [place] [address] [place] WBC (Bld) [#/Vol] 2.8 10*3/uL Low 4.5-11.0 [facility] Comment on above: Performed By: #### C BC, BMP #### [place] [address] [place] Dipstick and Microscopicon 1 12-15-2020 Appearance (U) Turbid Critically abnormal Clear [facility] Comment on above: Order Comment: Name Collection Type:: Clean-Voided Midstream Performed By: #### A DDONUAPLUS #### [place] [address] [place] Bacteria,Urine None Seen Normal None Seen [facility] Comment on above: Order Comment: Name Collection Type:: Clean-Voided Midstream Performed By: #### A DDONUAPLUS #### [facility] [address] [place] [address] [place] Bilirubin,Urine Negative Normal Negative [facility] Comment on above: Order Comment: Name Collection Type:: Clean-Voided Midstream Performed By: #### A DDONUAPLUS #### [facility] [address] [place] [address] [place] Color (U) Yellow Normal Yellow [facility] Comment on above: Order Comment: Name Collection Type:: Clean-Voided Midstream Performed By: #### A DDONUAPLUS #### [facility] [address] [place] [address] Glucose Ql (U) Normal Normal Normal [facility] Comment on above: Order Comment: Name Collection Type:: Clean-Voided Midstream Performed By: #### A DDONUAPLUS #### [place] [address] [place] Hyaline Casts,Urine None Seen Normal 0-8 [facility] Comment on above: Order Comment: Name Collection Type:: Clean-Voided Midstream Result Comment: PERF ORMED BY: [place] [address] PATHOLOGIST BILLING MANAGER CLAIRE ANTHONY M.D. Performed By: #### A DDONUAPLUS #### [facility] [address] [place] [address] Ketones Ql (U) Negative Normal Negative [facility] Comment on above: Order Comment: Name Collection Type:: Clean-Voided Midstream Performed By: #### A DDONUAPLUS #### [facility] [address] [place] [address] [place] Leukocyte esterase Test strip Ql (U) 1+ High Negative [facility] Comment on above: Order Comment: Name Collection Type:: Clean-Voided Midstream Performed By: #### A DDONUAPLUS #### [facility] [address] [place] [address] [place] Nitrite,Urine Negative Normal Negative [facility] Comment on above: Order Comment: Name Collection Type:: Clean-Voided Midstream Performed By: #### A DDONUAPLUS #### [address] Occult Blood,Urine Negative Normal Negative [facility] Comment on above: Order Comment: Name Collection Type:: Clean-Voided Midstream Result Comment: PERF ORMED BY: [place] [address] PATHOLOGIST BILLING MANAGER CLAIRE ANTHONY M.D. Performed By: #### A DDONUAPLUS #### [address] pH (U) 7.5 [pH] Normal 5.0-9.0 [facility] Comment on above: Order Comment: Name Collection Type:: Clean-Voided Midstream Performed By: #### A DDONUAPLUS #### [place] [address] [place] Protein,Urine Negative Normal Negative [facility] Comment on above: Order Comment: Name Collection Type:: Clean-Voided Midstream Performed By: #### A DDONUAPLUS #### [address] RBC,Urine 1-2 Normal 0-4 [facility] Comment on above: Order Comment: Name Collection Type:: Clean-Voided Midstream Performed By: #### A DDONUAPLUS #### [place] [address] [place] Specificy [place],Urine 1.017 Normal 1.001-1.030 [facility] Comment on above: Order Comment: Name Collection Type:: Clean-Voided Midstream Performed By: #### A DDONUAPLUS #### [place] [address] [place] Squamous Epithelial Cell,Urine None Seen Normal 0-2 [facility] Comment on above: Order Comment: Name Collection Type:: Clean-Voided Midstream Performed By: #### A DDONUAPLUS #### [address] Urobilinogen,Urine Normal Normal Normal [facility] Comment on above: Order Comment: Name Collection Type:: Clean-Voided Midstream Performed By: #### A DDONUAPLUS #### [facility] [address] [place] [address] WBC,Urine 3-4 Normal 0-4 [facility] Comment on above: Order Comment: Name Collection Type:: Clean-Voided Midstream Performed By: #### A DDONUAPLUS #### [facility] [address] [place] [address] PST Type and Screenon 2020 ABO and Rh group Nom (Bld) Blood group O Rh(D) positive Normal [facility] Comment on above: Order Comment: Date of Surgery: [id number] # of PRBC units on hold?: 2 Result Comment: PERF ORMED BY: [place] [address] PATHOLOGIST BILLING MANAGER CLAIRE ANTHONY M.D. XR hip RT min 2V(w/wo pelvis )*on 10-15-2021 XR hip RT min 2V(w/wo pelvis)* [facility] Main [place] [address] [place] [address] XRay Report Signed Patient: Isabel Waddell MR#: [id number] : 1960 Acct:[id number] Age/Sex: 61 / F ADM Date: 10/15/21 Loc: Room: Type: [facility] Attending Dr: Dylan Gatica Jr, DO [...] Yusef Fernandez M.D.10/15/2021 2:21 PM Dictation Location: [facility] Transcribed By: [facility] 10/15/211420 Dictated By: Yusef Fernandez DO 10/15/211419 Signed By: 10/15/211420 [facility] XR tibia/fibula BIon 021 XR tibia/fibula BI [facility] [address] XRay Report Signed Patient: Isabel Waddell MR#: [id number] : 1960 Acct:[id number] Age/Sex: 61 / F ADM Date: 08/22/21 Loc: ICXD Room: Type: [facility] Attending Dr: Dylan Gatica Jr, DO Ordering Provider: Dylan Gatica Jr, DO Date of Service: 08/22/21 XR/XR femur BI: PST ([id number]) XR/XR tibia/fibula BI: PST Copies to: Dylan [...] Mckayla Rai M.D.08/22/2021 3:17 PM Dictation Location: [facility] Transcribed By: JULIO 08/22/21 151 Dictated By: Mckayla Rai MD 08/22/21 151 Signed By: 08/22/211516 [facility] Basic Metabolic Panelon 10-0 Calcium [Mass/Vol] 9.1 mg/dL Normal 8.2-10.2 [facility] Comment on above: Result Comment: PERF ORMED BY: [place] [address] PATHOLOGIST BILLING MANAGER CLAIRE ANTHONY M.D. Performed By: #### C BC, BMP #### [facility] [address] [place] [address] Chloride [Moles/Vol] 102 mmol/L Normal 95-114 [facility] Comment on above: Performed By: #### C BC, BMP #### [address] CO2 [Moles/Vol] 27.8 mmol/L Normal 22.0-30.0 [facility] Comment on above: Performed By: #### C BC, BMP #### [address] Creatinine [Mass/Vol] 0.63 mg/dL Normal 0.44-1.03 [facility] Comment on above: Performed By: #### C BC, BMP #### [address] Estimated GFR ( Damon > 60 [facility] Comment on above: Result Comment: GFR estimated reference range: According to KDOQI guidelines, <60 ml/min/1.73m2 is sufficient to diagnose a patient with chronic kidney disease. Performed By: #### C BC, BMP #### [place] [address] [place] Estimated GFR (Non- Am > 60 [facility] Comment on above: Performed By: #### C BC, BMP #### [place] [address] [place] Glucose [Mass/Vol] 101 mg/dL High 70-100 [facility] Comment on above: Result Comment: [place] Glucose Reference Range is dependent on time and content of last meal. Glucose of more than 200 mg/dL in a nonstressed, ambulatory subject supports the diagnosis of Diabetes Mellitus. ADA recommended reference range Performed By: #### C BC, BMP #### [address] Potassium [Moles/Vol] 4.2 mmol/L Normal 3.5-5.1 [facility] Comment on above: Performed By: #### C BC, BMP #### [address] Sodium [Moles/Vol] 138 mmol/L Normal 136-146 [facility] Comment on above: Performed By: #### C BC, BMP #### [address] Urea nitrogen [Mass/Vol] 18 mg/dL Normal 9-23 [facility] Comment on above: Performed By: #### C BC, BMP #### [address] Complete Blood Count Auto Di ffon 08-20-2021 Basophils (Bld) [#/Vol] 0.0 10*3/uL Normal 0.0-0.2 [facility] Comment on above: Result Comment: PERF ORMED BY: [place] [address] PATHOLOGIST BILLING MANAGER CLAIRE ANTHONY M.D. Performed By: #### C BC, BMP #### [place] [address] [place] Basophils/100 WBC (Bld) 0.1 % Normal . [facility] Comment on above: Performed By: #### C BC, BMP #### [place] [address] [place] Eosinophils (Bld) [#/Vol] 0.1 10*3/uL Normal 0.0-0.45 [facility] Comment on above: Performed By: #### C BC, BMP #### [place] [address] [place] Eosinophils/100 WBC (Bld) 2.5 % Normal . [facility] Comment on above: Performed By: #### C BC, BMP #### [address] Erythrocyte distribution width (RBC) [Ratio] 13.6 % Normal 11.9-15.3 [facility] Comment on above: Performed By: #### C BC, BMP #### [address] Hematocrit (Bld) [Volume fraction] 34.5 % Normal 34.0-46.4 [facility] Comment on above: Performed By: #### C BC, BMP #### [address] Hemoglobin (Bld) [Mass/Vol] 11.9 g/dL Normal 11.8-15.4 [facility] Comment on above: Performed By: #### C BC, BMP #### [address] Lymphocytes (Bld) [#/Vol] 0.6 10*3/uL Low 1.00-4.8 [facility] Comment on above: Performed By: #### C BC, BMP #### [address] Lymphocytes/100 WBC (Bld) 15.9 % Normal . [facility] Comment on above: Performed By: #### C BC, BMP #### [address] MCH (RBC) [Entitic mass] 31.3 pg Normal 24.7-34.3 [facility] Comment on above: Performed By: #### C BC, BMP #### [address] MCV (RBC) [Entitic vol] 90.5 fL Normal 80-100 [facility] Comment on above: Performed By: #### C BC, BMP #### [address] Mean Corpuscular HGB Conc 34.6 g/dL Normal 32.0-35.0 [facility] Comment on above: Performed By: #### C BC, BMP #### [address] [place] [address] [place] Monocytes (Bld) [#/Vol] 0.5 10*3/uL Normal 0.0-0.8 [facility] Comment on above: Performed By: #### C BC, BMP #### [facility] [address] [place] [address] [place] Monocytes/100 WBC (Bld) 13.2 % Normal . [facility] Comment on above: Performed By: #### C BC, BMP #### [facility] [address] [place] [address] [place] Neutrophils (Bld) [#/Vol] 2.7 10*3/uL Normal 1.8-7.7 [facility] Comment on above: Performed By: #### C SANTANA, BMP #### [facility] [address] [place] [address] [place] Neutrophils/100 WBC (Bld) 68.3 % Normal . [facility] Comment on above: Performed By: #### C SANTANA, BMP #### [facility] [address] [place] [address] [place] Nucleated RBC/100 WBC (Bld) [Ratio] 0.1 % Normal 0-0.5 [facility] Comment on above: Performed By: #### C SANTANA, BMP #### [place] [address] [place] Platelet mean volume (Bld) [Entitic vol] 7.8 fL Normal 6.3-10.7 [facility] Comment on above: Performed By: #### C BC, BMP #### [facility] [address] [place] [address] [place] Platelets (Bld) [#/Vol] 182 10*3/uL Normal 150-450 [facility] Comment on above: Performed By: #### C BC, BMP #### [facility] [address] [place] [address] [place] RBC (Bld) [#/Vol] 3.81 10*6/uL Normal 3.60-5.00 [facility] Comment on above: Performed By: #### C BC, BMP #### [facility] [address] WBC (Bld) [#/Vol] 4.0 10*3/uL Low 4.5-11.0 [facility] Comment on above: Performed By: #### C BC, BMP #### [facility] [address] [place] [address] [place] Dipstick and Microscopicon 1 Appearance (U) Turbid Critically abnormal Clear [facility] Comment on above: Order Comment: Comme nt urine C S if indicated by UA Name Collection Type:: Clean-Voided Midstream Performed By: #### A DDONUAPLUS #### [facility] [address] [place] [address] Bacteria,Urine None Seen Normal None Seen [facility] Comment on above: Order Comment: Comme nt urine C S if indicated by UA Name Collection Type:: Clean-Voided Midstream Performed By: #### A DDONUAPLUS #### [facility] [address] [place] [address] [place] Bilirubin,Urine Negative Normal Negative [facility] Comment on above: Order Comment: Comme nt urine C S if indicated by UA Name Collection Type:: Clean-Voided Midstream Performed By: #### A DDONUAPLUS #### [facility] [address] [place] [address] Color (U) Yellow Normal Yellow [facility] Comment on above: Order Comment: Comme nt urine C S if indicated by UA Name Collection Type:: Clean-Voided Midstream Performed By: #### A DDONUAPLUS #### [facility] [address] [place] [address] [place] Glucose Ql (U) Normal Normal Normal [facility] Comment on above: Order Comment: Comme nt urine C S if indicated by UA Name Collection Type:: Clean-Voided Midstream Performed By: #### A DDONUAPLUS #### [facility] [address] [place] [address] [place] Hyaline Casts,Urine 0-8 Normal 0-8 [facility] Comment on above: Order Comment: Comme nt urine C S if indicated by UA Name Collection Type:: Clean-Voided Midstream Result Comment: PERF ORMED BY: [place] [address] PATHOLOGIST BILLING MANAGER CLAIRE ANTHONY M.D. Performed By: #### A DDONUAPLUS #### [facility] [address] [place] [address] Ketones Ql (U) Negative Normal Negative [facility] Comment on above: Order Comment: Comme nt urine C S if indicated by UA Name Collection Type:: Clean-Voided Midstream Performed By: #### A DDONUAPLUS #### [address] Leukocyte esterase Test strip Ql (U) 3+ High Negative [facility] Comment on above: Order Comment: Comme nt urine C S if indicated by UA Name Collection Type:: Clean-Voided Midstream Performed By: #### A DDONUAPLUS #### [facility] [address] [place] [address] Nitrite,Urine Negative Normal Negative [facility] Comment on above: Order Comment: Comme nt urine C S if indicated by UA Name Collection Type:: Clean-Voided Midstream Performed By: #### A DDONUAPLUS #### [address] Occult Blood,Urine Negative Normal Negative [facility] Comment on above: Order Comment: Comme nt urine C S if indicated by UA Name Collection Type:: Clean-Voided Midstream Result Comment: PERF ORMED BY: [place] [address] PATHOLOGIST BILLING MANAGER CLAIRE ANTHONY M.D. Performed By: #### A DDONUAPLUS #### [facility] [address] [place] [address] pH (U) 8.5 [pH] Normal 5.0-9.0 [facility] Comment on above: Order Comment: Comme nt urine C S if indicated by UA Name Collection Type:: Clean-Voided Midstream Performed By: #### A DDONUAPLUS #### [facility] [address] [place] [address] Protein,Urine Negative Normal Negative [facility] Comment on above: Order Comment: Comme nt urine C S if indicated by UA Name Collection Type:: Clean-Voided Midstream Performed By: #### A DDONUAPLUS #### [address] RBC,Urine 3-4 Normal 0-4 [facility] Comment on above: Order Comment: Comme nt urine C S if indicated by UA Name Collection Type:: Clean-Voided Midstream Performed By: #### A DDONUAPLUS #### [address] Specificy [place],Urine 1.016 Normal 1.001-1.030 [facility] Comment on above: Order Comment: Comme nt urine C S if indicated by UA Name Collection Type:: Clean-Voided Midstream Performed By: #### A DDONUAPLUS #### [facility] [address] [place] [address] Squamous Epithelial Cell,Urine 0-1 Normal 0-2 [facility] Comment on above: Order Comment: Comme nt urine C S if indicated by UA Name Collection Type:: Clean-Voided Midstream Performed By: #### A DDONUAPLUS #### [facility] [address] [place] [address] Urobilinogen,Urine Normal Normal Normal [facility] Comment on above: Order Comment: Comme nt urine C S if indicated by UA Name Collection Type:: Clean-Voided Midstream Performed By: #### A DDONUAPLUS #### [facility] [address] [place] [address] [place] WBC,Urine 20-49 High 0-4 [facility] Comment on above: Order Comment: Comme nt urine C S if indicated by UA Name Collection Type:: Clean-Voided Midstream Performed By: #### A DDONUAPLUS #### [facility] [address] [place] [address] ECG 12 lead ECGon 08-20-2021 ECG 12 lead ECG [facility] Main [address] [address] Electrocardiograph Report Signed Patient: Isabel Waddell MR#: [id number] : 1960 Acct:[id number] Age/Sex: 61 / F ADM Date: 08/20/21 Loc: PS Room: Type: [facility] Attending Dr: Dylan Gatica Jr, DO [...] When compared with ECG of 06-SEP-2020 08:27, [place] interval has decreased T wave amplitude has increased in Inferior leads Confirmed by YUSEF GIRALDO DO ([id number]) on 08/20/2021 4:50:03 PM Referred By: LAURA Electronically Signed By:YUSEF GIRALDO DO Transcribed By: MUS Signed By Yusef Giraldo DO 08/20 1650 Normal [facility] PST Type and Screenon 2020 ABO and Rh group Nom (Bld) Blood group O Rh(D) positive Normal [facility] Comment on above: Order Comment: Date of Surgery: [id number] # of PRBC units on hold?: 2 Result Comment: PERF ORMED BY: [place] [id number] PATHOLOGIST BILLING MANAGER CLAIRE ANTHONY M.D. Urine Cultureon 08-20-2021 Bacteria identified Cx Nom (U) Comment do C S if indicated by UA ORGANISM: Staphylococcus aureus (O:STAAUR) Schuyler Count 30,000 Aerobic MARELY Charge (PC45) --- [...] RESISTANT TO ALL B-LACTAM DRUGS. PERFORMED BY: [place] [address] PATHOLOGIST BILLING MANAGER CLAIRE ANTHONY M.D. [facility] Comment on above: Performed By: #### C UU #### [address] Cult,Urineon 07-08-2021 Cult,Urine Specimen Description .URINE Special Requests NOT REPORTED Culture NO SIGNIFICANT GROWTH Report Status FINAL 07/08/2021 [facility] Comment on above: Performed By: #### U #### [facility] [place] [address] Research Scientist: Rei Jules MD [facility] [address] [place] [address] Research Scientist: Jacob Campos MD CBC Auto DifferentialOrdered By: Mayra Michel on 07-07-2021 Absolute Eos # 0.70 High [facility] Work Phone: Absolute Immature Granulocyte NOT REPORTED [facility] Work Phone: Absolute Lymph # 0.40 Low [facility] Work Phone: Absolute Martin # 0.50 [place] [employer] [facility] Work Phone: Basophils (Bld) [#/Vol] 0.00 10*3/uL [employer] Work Phone: Basophils/100 WBC (Bld) 1 % 0 - 2 % [employer] Phone: Differential Type YES [facility] Work Phone: Eosinophils/100 WBC (Bld) 14 % High 0 - 5 % [employer] Phone: Hematocrit (Bld) [Volume fraction] 40.1 % 36 - 46 % [employer] Phone: Hemoglobin.gastrointes tinal spec 1 Ql (Stl) 13.8 g/dL 12.0 - 16.0 g/dL [employer] Phone: Immature Granulocytes NOT REPORTED 0 % M [employer] Work Phone: Interpretation and review of laboratory results Abnormal [employer] Phone: Lymphocytes/100 WBC (Bld) 8 % Low 15 - 40 % [employer] Phone: MCH (RBC) [Entitic mass] 30.7 pg 26 - 34 pg [employer] Phone: MCHC (RBC) [Mass/Vol] 34.5 g/dL 31 - 37 g/dL [employer] Work Phone: MCV (RBC) [Entitic vol] 89.1 fL 80 - 100 fL [employer] Phone: Monocytes/100 WBC (Bld) 10 % High 4 - 8 % [employer] Phone: NRBC Automated NOT REPORTED per 100 WBC [facility] Work Phone: Platelet distribution width (Bld) [Ratio] 13.0 % 12.1 - 15.2 % [employer] Phone: Platelet Estimate NOT REPORTED [employer] Phone: Platelet mean volume (Bld) [Entitic vol] NOT REPORTED 6.0 - 12.0 fL [employer] Phone: Platelets (Bld) [#/Vol] 157 10*3/uL [employer] Phone: RBC (Bld) [#/Vol] 4.50 10*6/uL 4.0 - 5.2 m/uL [employer] Phone: RBC (Bld) [#/Vol] NOT REPORTED [employer] Phone: Segmented neutrophils/100 WBC (Bld) 67 % 47 - 75 % [employer] Phone: Segs Absolute 3.40 [employer] Work Phone: WBC (Bld) [#/Vol] 5.1 10*3/uL [employer] Phone: WBC (Bld) [#/Vol] NOT REPORTED [employer] Phone: [employer] Phone: CBC with Diffon 07-07-2021 Abs. Basophil 0.00 k/uL Normal 0.0-0.2 [facility] Comment on above: Performed By: #### C DP, CP #### [facility] [address] [place] [address] Research Scientist: Jacob Campos MD Abs.Neutrophil (Seg) 3.40 k/uL Normal 2.5-7.0 [facility] Comment on above: Performed By: #### C DP, CP #### [facility] [address] [place] [address] Research Scientist: Jacob Campos MD Auto Diff Performed YES Normal [facility] Comment on above: Performed By: #### C DP, CP #### [facility] [address] [place], [place] [phone] Research Scientist: Jacob Campos MD Basophils/100 WBC (Bld) 1 % Normal 0-2 [facility] Comment on above: Performed By: #### C DP, CP #### [facility] [address] [place], [place] [phone] Research Scientist: Jacob Campos MD Eosinophils (Bld) [#/Vol] 0.70 10*3/uL High 0.0-0.4 [facility] Comment on above: Performed By: #### C DP, CP #### [facility] [address] [place], [place] [phone] Research Scientist: Jacob Campos MD Eosinophils/100 WBC (Bld) 14 % High 0-5 [facility] Comment on above: Performed By: #### C DP, CP #### [facility] [address] [place], [place] [id number] Research Scientist: Jacob Campos MD Erythrocyte distribution width (RBC) [Ratio] 13.0 % Normal 12.1-15.2 [facility] Comment on above: Performed By: #### C DP, CP #### [facility] [address] [place], [place] [id number] Research Scientist: Jacob Campos MD Hematocrit (Bld) [Volume fraction] 40.1 % Normal 36-46 [facility] Comment on above: Performed By: #### C DP, CP #### [facility] [address] [place], [place] [id number] Research Scientist: Jacob Campos MD Hemoglobin (Bld) [Mass/Vol] 13.8 g/dL Normal 12.0-16.0 [facility] Comment on above: Performed By: #### C DP, CP #### [facility] [address] [place], [place] [id number] Research Scientist: Jacob Campos MD Lymphocytes (Bld) [#/Vol] 0.40 10*3/uL Low 1.0-4.8 [facility] Comment on above: Performed By: #### C DP, CP #### [facility] [address] [place], [place] [phone] Research Scientist: Jacob Campos MD Lymphocytes/100 WBC (Bld) 8 % Low 15-40 [facility] Comment on above: Performed By: #### C DP, CP #### [facility] [address] [place], [place] [phone] Research Scientist: Jacob Campos MD MCH (RBC) [Entitic mass] 30.7 pg Normal 26-34 [facility] Comment on above: Performed By: #### C DP, CP #### [facility] [address] [place] [address] Research Scientist: Jacob Campos MD MCHC (RBC) [Mass/Vol] 34.5 g/dL Normal 31-37 [facility] Comment on above: Performed By: #### C DP, CP #### [facility] [address] [place] [address] Research Scientist: Jacob Campos MD MCV (RBC) [Entitic vol] 89.1 fL Normal 80-100 [facility] Comment on above: Performed By: #### C DP, CP #### [facility] [address] [place] [address] Research Scientist: Jacob Campos MD Monocytes (Bld) [#/Vol] 0.50 10*3/uL Normal 0.0-1.0 [facility] Comment on above: Performed By: #### C DP, CP #### [facility] [address] [place] [address] Research Scientist: Jacob Campos MD Monocytes/100 WBC (Bld) 10 % High 4-8 [facility] Comment on above: Performed By: #### C DP, CP #### [facility] [address] [place] [address] Research Scientist: Jacob Campos MD Neutrophil (Seg) 67 % Normal 47-75 [facility] Comment on above: Performed By: #### C DP, CP #### [facility] [address] [place] [address] Research Scientist: Jacob Campos MD Platelets (Bld) [#/Vol] 157 10*3/uL Normal 140-450 [facility] Comment on above: Performed By: #### C DP, CP #### [facility] [address] [place] [address] Research Scientist: Jacob Campos MD RBC (Bld) [#/Vol] 4.50 10*6/uL Normal 4.0-5.2 [facility] Comment on above: Performed By: #### C DP, CP #### [facility] [address] [place] [address] Research Scientist: Jacob Campos MD WBC (Bld) [#/Vol] 5.1 10*3/uL Normal 3.5-11.0 [facility] Comment on above: Performed By: #### C DP, CP #### [facility] [address] [place] [address] Research Scientist: Jacob Campos MD Abs.Imm.Granulocyte NOT REPORTED Normal 0.00-0.30 [facility] Comment on above: Performed By: #### C DP, CP #### [facility] [address] [place] [address] Research Scientist: Jacob Campos MD Immature Granulocyte NOT REPORTED Normal 0 [facility] Comment on above: Performed By: #### C DP, CP #### [facility] [address] [place] [address] Research Scientist: Jacob Campos MD MPV NOT REPORTED Normal 6.0-12.0 [facility] Comment on above: Performed By: #### C DP, CP #### [facility] [address] [place] [address] Research Scientist: Jacob Campos MD NRBC Automated NOT REPORTED Normal [facility] Comment on above: Performed By: #### C DP, CP #### [facility] [address] [place] [address] Research Scientist: Jacob Campos MD Platelet Estimate NOT REPORTED Normal [facility] Comment on above: Performed By: #### C DP, CP #### [facility] [address] [place], [place] [phone] Research Scientist: Jacob Campso MD RBC morphology finding Nom (Bld) NOT REPORTED Normal [facility] Comment on above: Performed By: #### C DP, CP #### [facility] [address] [place] [address] Research Scientist: Jacob Campos MD WBC Morphology NOT REPORTED Normal [facility] Comment on above: Performed By: #### C DP, CP #### [facility] [address] [place] [address] Research Scientist: Jacob Campos MD Comp Metabolic Profon 2020 (cont.) Normal [facility] Comment on above: Result Comment: Aver age GFR for 60-69 years old: 85 mL/min/1.73sq m Chronic Kidney Disease: <60 mL/min/1.73sq m Kidney failure: <15 mL/min/1.73sq m eGFR calculated using average adult body mass. Additional eGFR calculator available at: http://www.WinView.CloudWalk/multiple_crcl_2012.htm Performed By: #### C DP, CP #### [facility] [address] [place] [address] Research Scientist: Jacob Campos MD Albumin [Mass/Vol] 3.9 g/dL Normal 3.5-5.2 [facility] Comment on above: Performed By: #### C DP, CP #### [facility] [address] [place] [address] Research Scientist: Jacob Campos MD Alkaline Phos 94 U/L Normal 35-104 [facility] Comment on above: Performed By: #### C DP, CP #### [facility] [address] [place] [address] Research Scientist: Jacob Campos MD ALT [Catalytic activity/Vol] 31 U/L Normal 5-33 [facility] Comment on above: Performed By: #### C DP, CP #### [facility] [address] [place] [address] Research Scientist: Jacob Campos MD Anion gap [Moles/Vol] 10 mmol/L Normal 9-17 [facility] Comment on above: Performed By: #### C DP, CP #### [facility] [address] [place] [address] Research Scientist: Jacob Campos MD AST [Catalytic activity/Vol] 28 U/L Normal <32 [facility] Comment on above: Performed By: #### C DP, CP #### [facility] [address] [place] [address] Research Scientist: Jacob Campos MD Bilirubin [Mass/Vol] 0.46 mg/dL Normal 0.30-1.20 [facility] Comment on above: Performed By: #### C DP, CP #### [facility] [address] [place] [address] Research Scientist: Jacob Campos MD BUN/CRE Ratio 27 High 9-20 [facility] Comment on above: Performed By: #### C DP, CP #### [facility] [address] [place], [place] [phone] Research Scientist: Jacob Campos MD Calcium [Mass/Vol] 9.7 mg/dL Normal 8.6-10.4 [facility] Comment on above: Performed By: #### C DP, CP #### [facility] [address] [place], [place] [phone] Research Scientist: Jacob Campos MD Chloride [Moles/Vol] 107 mmol/L Normal 98-107 [facility] Comment on above: Performed By: #### C DP, CP #### [facility] [address] [place], [place] [phone] Research Scientist: Jacob Campos MD CO2 [Moles/Vol] 25 mmol/L Normal 20-31 [facility] Comment on above: Performed By: #### C DP, CP #### [facility] [address] [place], [place] [phone] Research Scientist: Jacob Campos MD Creatinine [Mass/Vol] 0.60 mg/dL Normal 0.50-0.90 [facility] Comment on above: Performed By: #### C DP, CP #### [facility] [address] [place], [place] [id number] Research Scientist: Jacob Campos MD GFR, Amer >60 Normal >60 [facility] Comment on above: Performed By: #### C DP, CP #### [facility] [address] [place], [place] [phone] Research Scientist: Jcaob Campos MD GFR,non Amer >60 Normal >60 [facility] Comment on above: Performed By: #### C DP, CP #### [facility] [address] [place], [place] [phone] Research Scientist: Jacob Campos MD Glucose [Mass/Vol] 122 mg/dL High 70-99 [facility] Comment on above: Performed By: #### C DP, CP #### [facility] [address] [place] [address] Research Scientist: Jacob Campos MD Potassium [Moles/Vol] 3.8 mmol/L Normal 3.7-5.3 [facility] Comment on above: Performed By: #### C DP, CP #### [facility] [address] [place], [place] [address] Research Scientist: Jacob Campos MD Protein [Mass/Vol] 6.9 g/dL Normal 6.4-8.3 [facility] Comment on above: Performed By: #### C DP, CP #### [facility] [address] [place] [address] Research Scientist: Jacob Campos MD Sodium [Moles/Vol] 142 mmol/L Normal 135-144 [facility] Comment on above: Performed By: #### C DP, CP #### [facility] [address] [place], [place] [id number] Research Scientist: Jacob Campos MD Urea nitrogen [Mass/Vol] 16 mg/dL Normal 8-23 [facility] Comment on above: Performed By: #### C DP, CP #### [facility] [address] [place] [address] Research Scientist: Jacob Campos MD Albumin/Glob Ratio NOT REPORTED Normal 1.0-2.5 [facility] Comment on above: Performed By: #### C DP, CP #### [facility] [address] [place], [place] [phone] Research Scientist: Jacob Campos MD Staging: NOT REPORTED Normal [facility] Comment on above: Performed By: #### C DP, CP #### [facility] [address] [place] [address] Research Scientist: Jacob Campos MD Comprehensive Metabolic Pane lOrdered By: Mayra Michel on 07-07-2021 Albumin [Mass/Vol] 3.9 g/dL 3.5 - 5.2 g/dL [employer] Phone: Albumin/Globulin Ratio NOT REPORTED [employer] Phone: ALP (Bld) [Catalytic activity/Vol] 94 U/L 35 - 104 U/L [employer] Phone: ALT [Catalytic activity/Vol] 31 U/L 5 - 33 U/L [employer] Phone: Anion gap [Moles/Vol] 10 mmol/L 9 - 17 mmol/L [employer] Phone: AST [Catalytic activity/Vol] 28 U/L <32 [employer] Phone: Bilirubin [Mass/Vol] 0.46 mg/dL 0.30 - 1.20 mg/dL [employer] Phone: Calcium [Mass/Vol] 9.7 mg/dL 8.6 - 10. 4 mg/dL [employer] Phone: Chloride [Moles/Vol] 107 mmol/L 98 - 10 7 mmol/L [employer] Phone: CO2 [Moles/Vol] 25 mmol/L 20 - 31 mmol/L [employer] Phone: Creatinine [Mass/Vol] 0.6 mg/dL 0.50 - 0.90 mg/dL [employer] Phone: Free PSA/Total PSA [Mass fraction] 6.9 g/dL 6.4 - 8.3 g/dL [employer] Phone: GFR >60 >60 mL/min [employer] Phone: GFR Non- >60 >60 mL/min [employer] Phone: GFR/1.73 sq M.predicted MDRD (S/P/Bld) [Vol rate/Area] [employer] Phone: Comment on above: Average GFR for 60-6 9 years old: 85 mL/min/1.73sq m Chronic Kidney Disease: <60 mL/min/1.73sq m Kidney failure: <15 mL/min/1.73sq m eGFR calculated using average adult body mass. Additional eGFR calculator available at: http://www.Quvium/multiple_crcl_2012.htm GFR/1.73 sq M.predicted MDRD (S/P/Bld) [Vol rate/Area] NOT REPORTED [employer] Phone: Glucose [Mass/Vol] 122 mg/dL High 70 - 99 mg/dL [employer] Phone: Interpretation and review of laboratory results Abnormal [employer] Phone: Potassium [Moles/Vol] 3.8 mmol/L 3.7 - 5.3 mmol/L [employer] Phone: Sodium [Moles/Vol] 142 mmol/L 135 - 144 mmol/L [employer] Phone: Urea nitrogen (BldV) [Mass/Vol] 16 mg/dL 8 - 23 mg/dL [employer] Phone: Urea nitrogen/Creatinine (Bld) [Mass ratio] 27 High [employer] Phone: [employer] Phone: Microscopic UrinalysisOrdere d By: Mayra Michel on 07-07-2021 - [employer] Phone: Amorphous, UA NOT REPORTED None [employer] [facility] Work Phone: Bacteria, UA 2+ Abnormal None [employer] Phone: Casts UA NOT REPORTED /LPF [employer] Phone: Crystals, UA NOT REPORTED None /HPF [place] [employer] [facility] Work Phone: Epithelial Cells UA 5 TO 10 /HPF [employer] Work Phone: Interpretation and review of laboratory results Abnormal [facility] [employer] Work Phone: Mucus, UA 1+ Abnormal None [facility] [employer] Work Phone: Other Observations UA NOT REPORTED NOT REQ. M [facility] [employer] Work Phone: RBC, UA 5 TO 10 [facility] [employer] Work Phone: Renal Epithelial, UA NOT REPORTED 0 /HPF Me [facility] Work Phone: Trichomonas, UA NOT REPORTED None [facility] Work Phone: WBC, UA 2 TO 5 0 /HPF [facility] [employer] Work Phone: Yeast, UA NOT REPORTED None [facility] [employer] Work Phone: [facility] [employer] Work Phone: UrinalysisOrdered By: Olamide Michel on 07-07-2021 Bilirubin Urine Negative NEGATIVE [employer] [facility] Work Phone: Color, UA YELLOW YELLOW [facility] [employer] Work Phone: Glucose, Ur Negative NEGATIVE [facility] [employer] Work Phone: Interpretation and review of laboratory results Abnormal [facility] [employer] Work Phone: Ketones Ql (U) Negative NEGATIVE [facility] Work Phone: Leukocyte esterase Test strip Ql (U) 1+ Abnormal NEGATIVE [facility] [employer] Work Phone: Nitrite, Urine Negative NEGATIVE [facility] [employer] Work Phone: pH, UA 6.0 [facility] [employer] Work Phone: Protein, UA TRACE Abnormal NEGATIVE [facility] [employer] Work Phone: Specific [place], UA 1.020 [facility] [employer] Work Phone: Turbidity UA CLEAR CLEAR [facility] [employer] Work Phone: Urinalysis Comments [facility] [employer] Phone: Urine Hgb TRACE Abnormal NEGATIVE [facility] [employer] Phone: Urobilinogen, Urine Normal Normal [facility] [employer] Phone: [facility] [employer] Phone: Urinalysis, Routineon 2020 Bilirubin, SemiQt,Ur Negative Normal NEG [facility] Comment on above: Performed By: #### U MICAO, UA #### [facility] [address] [place] [address] Research Scientist: Jacob Campos MD Blood, Urine TRACE Abnormal NEG [facility] Comment on above: Performed By: #### U MICAO, UA #### [facility] [address] [facility] [place] [phone] Research Scientist: Jacob Campos MD Clarity (U) CLEAR Normal CLEAR [facility] Comment on above: Performed By: #### U MICAO, UA #### [facility] [address] [facility] [place] [phone] Research Scientist: Jacob Campos MD Color (U) YELLOW Normal YEL [facility] Comment on above: Performed By: #### U MICAO, UA #### [facility] [address] [place] [address] Research Scientist: Jacob Campos MD Comment Normal [facility] Comment on above: Performed By: #### U MICAO, UA #### [facility] [address] [facility] [place] [phone] Research Scientist: Jacob Campos MD Glucose Ql (U) Negative Normal NEG [facility] Comment on above: Performed By: #### U MICAO, UA #### [facility] [address] [place] [address] Research Scientist: Jacob Campos MD Ketones Ql (U) Negative Normal NEG [facility] Comment on above: Performed By: #### U MICAO, UA #### [facility] [address] [place] [address] Research Scientist: Jacob Campos MD Leukocyte esterase Test strip Ql (U) 1+ Abnormal NEG [facility] Comment on above: Performed By: #### U MICAO, UA #### [facility] [address] [place] [address] Research Scientist: Jacob Campos MD Nitrite,Ur Negative Normal NEG [facility] Comment on above: Performed By: #### U MICAO, UA #### [facility] [address] [place] [address] Research Scientist: Jacob Campos MD PH,Ur 6.0 Normal 5.0-8.0 [facility] Comment on above: Performed By: #### U MICAO, UA #### [facility] [address] [place] [address] Research Scientist: Jacob Campos MD Protein Ql (U) TRACE Abnormal NEG [facility] Comment on above: Performed By: #### U MICAO, UA #### [facility] [address] [place] [address] Research Scientist: Jacob Campos MD Spec. [place],Ur 1.020 Normal 1.005-1.030 [facility] Comment on above: Performed By: #### U MICAO, UA #### [facility] [address] [place] [address] Research Scientist: Jacob Campos MD Urobilinogen,Ur Normal Normal NORM [facility] Comment on above: Performed By: #### U MICAO, UA #### [facility] [address] [place] [address] Research Scientist: Jacob Campos MD Urinalysis,Microon 1 ----- Normal [facility] Comment on above: Performed By: #### U RICH UA #### [facility] [address] [place], [place] [id number] Research Scientist: Jacob Camops MD Bacteria 2+ Abnormal [facility] Comment on above: Performed By: #### U RICH UA #### [facility] [address] [place], [place] [phone] Research Scientist: Jacob Campos MD Epithelial cells LM Ql (Urine sed) 5 TO 10 Normal [facility] Comment on above: Performed By: #### U RICH UA #### [facility] [address] [place], [place] [phone] Research Scientist: Jacob Campos MD Mucus Strands 1+ Abnormal [facility] Comment on above: Performed By: #### U RICH, UA #### [facility] [address] [place], [place] [phone] Research Scientist: Jacob Campos MD Urine RBC's 5 TO 10 Normal 0-2 [facility] Comment on above: Performed By: #### U RICH UA #### [facility] [address] [place], [place] [phone] Research Scientist: Jacob Campos MD Urine WBC's 2 TO 5 Normal 0 [facility] Comment on above: Performed By: #### U RICH, UA #### [facility] [address] [place], [place] [phone] Research Scientist: Jacob Campos MD Amorphous sediment LM Ql (Urine sed) NOT REPORTED Normal [facility] Comment on above: Performed By: #### U EULALIAO, UA #### [facility] [address] [place], [place] [id number] Research Scientist: Jacob Campos MD Casts NOT REPORTED Normal [facility] Comment on above: Performed By: #### U RICH, UA #### [facility] [address] [place], [place] [phone] Research Scientist: Jacob Campos MD Crystals LM Nom (Urine sed) NOT REPORTED Normal NONE [facility] Comment on above: Performed By: #### U MICAO, UA #### [facility] [address] [place], [place] [phone] Research Scientist: Jacob Campos MD Epithelial, Renal NOT REPORTED Normal 0 [facility] Comment on above: Performed By: #### U MICAO, UA #### [facility] [address] [place], [place] [id number] Research Scientist: Jacob Campos MD Other Observations NOT REPORTED Normal NREQ [facility] Comment on above: Performed By: #### U EULALIAO, UA #### [facility] [address] [place], [place] [id number] Research Scientist: Jacob Campos MD Trichomonas NOT REPORTED Normal NONE [facility] Comment on above: Performed By: #### U EULALIAO, UA #### [facility] [address] [place], [place] [phone] Research Scientist: Jacob Campos MD Yeast NOT REPORTED Normal NONE [facility] Comment on above: Performed By: #### U EULALIAO, UA #### [facility] [address] [place], [place] [phone] Research Scientist: Jacob Campos MD XR hand RT min 3V*on 021 XR hand RT min 3V* [facility] [address] [address] XRay Report Signed Patient: Isabel Waddell MR#: [id number] : 1960 Acct:[id number] Age/Sex: 60 / F ADM Date: 03/28/21 Loc: [facility] Room: Type: [facility] CLI Attending Dr: Sona Hurst MD [...] Mckayla Rai M.D.03/28/2021 1:26 PM Dictation Location: [place] [address] Transcribed By: [facility] 03/28/21 1326 Dictated By: Mckayla Rai MD 03/28/21 1321 Signed By: 03/28/21 1326 [facility] BIOAVAILABLE TESTOSTERONE FE MALESusie 11-29-2019 Albumin [Mass/Vol] 4.3 g/dL Normal 3.6-5.1 [facility] Comment on above: Result Comment: Age and Gender Specific Reference Interval Applied Interpretive Information: Total Testosterone Reference Interval (ng/dL) Premenopausal 9 - 55 Postmenopausal 5 - 32 Bioavailable Testosterone (ng/dL) Postmenopausal 1.5 - 9.4 Free Testosterone Reference Interval (pg/mL) Postmenopausal 0.6 - 3.8 This test was developed and its performance characteristics determined by [facility] ([facility]). It has not been cleared or approved by the U.S. Food and Drug Administration (FDA). The FDA has determined that such clearance or approval is not necessary. This test is used for clinical purposes and should not be regarded as investigational or for research. [facility] [facility] is qualified to perform high complexity testing under the Clinical Laboratory Improvement Amendments (CLIA). Test performed at [facility] [address] [place] [address], [address], [address] [place] [address] Travel Med Surg Rn: Adi Barksdale M.D. CLIA Number [id number] CAP Accreditation Number [id number] ------- Pathology [facility] [address] [place] [address] CLIA No. [id number] CAP Accreditation No. [id number] Travel Med Surg Rn: Isiah Burr M.D. Performed By: #### 1 000, 4500, 4510, 4520, 15421, 5000, 78192, 64999 #### [facility] Unless Otherwise Noted [address] [place] [address] / COLA #4724/CLIA # [id number] SEX HORM BINDING GLOBULIN 56.3 nmol/L Normal 17.3-125.0 [facility] Comment on above: Performed By: #### 1 000, 4500, 4510, 4520, 63630, 5000, 71714, 44657 #### [facility] Unless Otherwise Noted [address] [place] [address] / COLA #4724/CLIA # [id number] TESTOSTERONE BIO FEMALE 2.9 ng/dL Normal 1.5-9.4 [facility] Comment on above: Performed By: #### 1 000, 4500, 4510, 4520, 33967, 5000, 78543, 35378 #### [facility] Unless Otherwise Noted [address] [place] [address] / COLA #4724/CLIA # [id number] TESTOSTERONE FREE FEMALE 1.3 pg/mL Normal 0.6-3.8 [facility] Comment on above: Performed By: #### 1 000, 4500, 4510, 4520, 92567, 5000, 92398, 73721 #### [facility] Unless Otherwise Noted [address] [address] / COLA #4724/CLIA # [id number] TESTOSTERONE, ULTRASENSITIVE 10 ng/dL Normal 9-55 [facility] Comment on above: Performed By: #### 1 000, 4500, 4510, 4520, 24300, 5000, 32988, 35412 #### [facility] Unless Otherwise Noted [address] [address] / COLA #4724/CLIA # [id number] ADRENOCORTICOTROPIC HORMon 0 11-27-2019 ADRENOCORTICOTROPIC HORM 18.1 PG/ML Normal 7.2-63.3 [facility] Comment on above: Result Comment: Reference range established for normal adult patients, morning blood draw (7-10 AM). Certain synthetic ACTH fragments may interfere with this assay. Test performed at [facility] [address] [place] [address] CLIA Number [id number] [facility] Accreditation Number [id number] ------- Performed By: #### 1 000, 4500, 4510, 4520, 38574, 5000, 93112, 10426 #### [facility] Unless Otherwise Noted [address] [address] / COLA #4724/CLIA # [id number] IGF-1on 11-27-2019 IGF-1 151 NG/ML Normal 43-187 [facility] Comment on above: Result Comment: Test performed at [facility] [address] [place] [address] CLIA Number [id number] [facility] Accreditation Number [id number] ------- Performed By: #### 1 000, 4500, 4510, 4520, 11612, 5000, 56638, 68579 #### [facility] Unless Otherwise Noted [address] [place] [address] / COLA #4724/CLIA # [id number] CORTISOL Delonte 11-26-2019 CORTISOL AM 8.6 UG/DL Normal 4.5-22.7 [facility] Comment on above: Performed By: #### 1 000, 4500, 4510, 4520, 70475, 5000, 71003, 33236 #### [facility] Unless Otherwise Noted [address] [place] [address] / COLA #4724/CLIA # [id number] FSHon 11-26-2019 FSH 26.30 mlU/mL Normal [facility] Comment on above: Result Comment: REFE RENCE RANGES FOR FEMALES: OVULATING FEMALE: FOLLICULAR PHASE 1.98-11.6 PEAK 5.14-23.4 LUTEAL PHASE 1.38-9.58 POSTMENOPAUSAL FEMALE 21.5-131 Performed By: #### 4 530, 4770, 4550, 4574 #### [facility] Unless Otherwise Noted [address] [place] [address] / COLA #4724/CLIA # [id number] LHon 11-26-2019 LH 23.00 mIU/ml Normal [facility] Comment on above: Result Comment: REFE RENCE RANGES FOR FEMALE: OVULATING FEMALE: FOLLICULAR PHASE 2.58-12.1 PEAK 27.3-96.9 LUTEAL PHASE 0.83-15.5 POSTMENOPAUSAL FEMALE 13.1-86.5 Performed By: #### 4 530, 4540, 4550, 4577 #### [facility] Unless Otherwise Noted [address] [address] / COLA #4724/CLIA # [id number] PROLACTINon 11-26-2019 PROLACTIN 17.3 ng/ml Normal 2.1-47.6 [facility] Comment on above: Result Comment: IVELISSE ENOPAUSAL FEMALE 2.1 - 47.6 POSTMENOPAUSAL FEMALE 0.0 - 41.4 Performed By: #### 1 000, 4500, 4510, 4520, 61542, 5000, 38143, 40122 #### [facility] Unless Otherwise Noted [address] [address] / COLA #4724/CLIA # [id number] CBC W/AUTO DIFFon 11-25-2019 ABS BASOPHILS 0.0 X10E9/L Normal 0-0.9 [facility] Comment on above: Result Comment: Perf ormed at [facility] [address] [facility] [address] Performed By: #### 1 000, 4500, 4510, 4520, 48564, 5000, 39454, 84502 #### [facility] Unless Otherwise Noted [address] [address] / COLA #4724/CLIA # [id number] ABS NEUTROPHILS 2.6 X10E9/L Normal 1.5-6.6 [facility] Comment on above: Performed By: #### 1 000, 4500, 4510, 4520, 08391, 5000, 58395, 69086 #### [facility] Unless Otherwise Noted [address] [place] [address] / COLA #4724/CLIA # [id number] Basophils/100 WBC (Bld) 0.6 % Normal [facility] Comment on above: Performed By: #### 1 000, 4500, 4510, 4520, 78736, 5000, 46452, 22213 #### [facility] Unless Otherwise Noted [address] [address] / COLA #4724/CLIA # [id number] Eosinophils (Bld) [#/Vol] 0.2 10*3/uL Normal 0.0-0.4 [facility] Comment on above: Performed By: #### 1 000, 4500, 4510, 4520, 57323, 5000, 69531, 87901 #### [facility] Unless Otherwise Noted [address] [place] [address] / COLA #4724/CLIA # [id number] Eosinophils/100 WBC (Bld) 3.1 % Normal [facility] Comment on above: Performed By: #### 1 000, 4500, 4510, 4520, 86799, 5000, 31291, 87282 #### [facility] Unless Otherwise Noted [address] [address] / COLA #4724/CLIA # [id number] Erythrocyte distribution width (RBC) [Ratio] 13.3 % Normal 11.5-14.7 [facility] Comment on above: Performed By: #### 1 000, 4500, 4510, 4520, 81935, 5000, 52163, 36684 #### [facility] Unless Otherwise Noted [address] [address] / COLA #4724/CLIA # [id number] Hematocrit (Bld) [Volume fraction] 39.4 % Normal 35-47 [facility] Comment on above: Performed By: #### 1 000, 4500, 4510, 4520, 87954, 5000, 42935, 76523 #### [facility] Unless Otherwise Noted [address] [address] / COLA #4724/CLIA # [id number] Hemoglobin (Bld) [Mass/Vol] 13.3 g/dL Normal 11.7-16.0 [facility] Comment on above: Performed By: #### 1 000, 4500, 4510, 4520, 53925, 5000, 50219, 61643 #### [facility] Unless Otherwise Noted [address] [address] / COLA #4724/CLIA # [id number] Lymphocytes (Bld) [#/Vol] 1.8 10*3/uL Normal 1.0-3.5 [facility] Comment on above: Performed By: #### 1 000, 4500, 4510, 4520, 81496, 5000, 41869, 83259 #### [facility] Unless Otherwise Noted [address] [address] / COLA #4724/CLIA # [id number] Lymphocytes/100 WBC (Bld) 35.0 % Normal [facility] Comment on above: Performed By: #### 1 000, 4500, 4510, 4520, 16650, 5000, 33747, 87907 #### [facility] Unless Otherwise Noted [address] [address] / COLA #4724/CLIA # [id number] MCH (RBC) [Entitic mass] 31.2 pg Normal 26-33.5 [facility] Comment on above: Performed By: #### 1 000, 4500, 4510, 4520, 36408, 5000, 06587, 84865 #### [facility] Unless Otherwise Noted [address] / COLA #4724/CLIA # [id number] MCHC (RBC) [Mass/Vol] 33.7 g/dL Normal 32-36 End [facility] Comment on above: Performed By: #### 1 000, 4500, 4510, 4520, 50669, 5000, 29652, 99132 #### [facility] Unless Otherwise Noted [address] [place] [address] / COLA #4724/CLIA # [id number] MCV (RBC) [Entitic vol] 93 fL Normal 81-100 [facility] Comment on above: Performed By: #### 1 000, 4500, 4510, 4520, 57931, 5000, 50169, 74322 #### [facility] Unless Otherwise Noted [address] / COLA #4724/CLIA # [id number] Monocytes (Bld) [#/Vol] 0.5 10*3/uL Normal 0-0.9 [facility] Comment on above: Performed By: #### 1 000, 4500, 4510, 4520, 16133, 5000, 55172, 80403 #### [facility] Unless Otherwise Noted [address] / COLA #4724/CLIA # [id number] Monocytes/100 WBC (Bld) 10.0 % Normal [facility] Comment on above: Performed By: #### 1 000, 4500, 4510, 4520, 02144, 5000, 46535, 57433 #### [facility] Unless Otherwise Noted [address] [address] / COLA #4724/CLIA # [id number] Neutrophils/100 WBC (Bld) 51.3 % Normal [facility] Comment on above: Performed By: #### 1 000, 4500, 4510, 4520, 56440, 5000, 02993, 68177 #### [facility] Unless Otherwise Noted [address] [address] / COLA #4724/CLIA # [id number] Platelet mean volume (Bld) [Entitic vol] 8.8 fL Normal 7-12 [facility] Comment on above: Performed By: #### 1 000, 4500, 4510, 4520, 22904, 5000, 64677, 18029 #### [facility] Unless Otherwise Noted [address] [address] / COLA #4724/CLIA # [id number] Platelets (Bld) [#/Vol] 225 10*3/uL Normal 150-450 [facility] Comment on above: Performed By: #### 1 000, 4500, 4510, 4520, 93374, 5000, 96156, 31904 #### [facility] Unless Otherwise Noted [address] [address] / COLA #4724/CLIA # [id number] RBC (Bld) [#/Vol] 4.25 X10E12/L Normal 3.80-5.20 [facility] Comment on above: Performed By: #### 1 000, 4500, 4510, 4520, 00896, 5000, 30811, 91336 #### [facility] Unless Otherwise Noted [address] [address] / COLA #4724/CLIA # [id number] WBC (Bld) [#/Vol] 5.1 10*3/uL Normal 4.8-10.8 [facility] Comment on above: Performed By: #### 1 000, 4500, 4510, 4520, 03944, 5000, 02519, 27419 #### [facility] Unless Otherwise Noted [address] [address] / COLA #4724/CLIA # [id number] [facility] 11-25-2019 Albumin [Mass/Vol] 4.2 g/dL Normal 3.5-5.0 [facility] Comment on above: Performed By: #### 1 000, 4500, 4510, 4520, 70343, 5000, 13200, 07451 #### [facility] Unless Otherwise Noted [address] [address] / COLA #4724/CLIA # [id number] ALP [Catalytic activity/Vol] 103.0 U/L Normal 38.0-126.0 [facility] Comment on above: Performed By: #### 1 000, 4500, 4510, 4520, 87022, 5000, 54257, 70040 #### [facility] Unless Otherwise Noted [address] [address] / COLA #4724/CLIA # [id number] ALT [Catalytic activity/Vol] 62.0 U/L Normal 13.0-69.0 [facility] Comment on above: Performed By: #### 1 000, 4500, 4510, 4520, 77864, 5000, 50629, 14306 #### [facility] [place] [facility] Unless Otherwise Noted [address] [address] / COLA #4724/CLIA # [id number] Anion gap [Moles/Vol] 4.0 mmol/L Low 10.0-15.0 End [facility] Comment on above: Performed By: #### 1 000, 4500, 4510, 4520, 78555, 5000, 76008, 38265 #### [facility] [place] Unless Otherwise Noted [address] [address] / COLA #4724/CLIA # [id number] AST [Catalytic activity/Vol] 30.0 U/L Normal 15.0-46.0 [facility] Comment on above: Performed By: #### 1 000, 4500, 4510, 4520, 10602, 5000, 62091, 17043 #### [facility] [place] Unless Otherwise Noted [address] [address] / COLA #4724/CLIA # [id number] Bilirubin Ql (U) 0.50 mg/dL Normal 0.20-1.30 [facility] Comment on above: Performed By: #### 1 000, 4500, 4510, 4520, 59660, 5000, 12157, 10258 #### [facility] Unless Otherwise Noted [address] [address] / COLA #4724/CLIA # [id number] BUN/Cre Ratio 32.9 Ratio High 7.0-27.0 [facility] Comment on above: Performed By: #### 1 000, 4500, 4510, 4520, 03356, 5000, 63807, 46655 #### [facility] Unless Otherwise Noted [address] [address] / COLA #4724/CLIA # [id number] Calcium [Mass/Vol] 9.5 mg/dL Normal 8.4-10.2 [facility] Comment on above: Performed By: #### 1 000, 4500, 4510, 4520, 34914, 5000, 80568, 35229 #### [facility] Unless Otherwise Noted [address] [address] / COLA #4724/CLIA # [id number] Chloride [Moles/Vol] 102.0 mmol/L Normal 98.0-107.0 En [facility] Comment on above: Performed By: #### 1 000, 4500, 4510, 4520, 90450, 5000, 72205, 50004 #### [facility] Unless Otherwise Noted [address] [address] / COLA #4724/CLIA # [id number] CO2 [Moles/Vol] 31.0 mmol/L High 22.0-30.0 Endocrin [facility] Comment on above: Performed By: #### 1 000, 4500, 4510, 4520, 60640, 5000, 21652, 85499 #### [facility]ocrine and [facility] Unless Otherwise Noted [address] [address] / COLA #4724/CLIA # [id number] Creatinine [Mass/Vol] 0.7 mg/dL Normal 0.5-1.0 End [facility] Comment on above: Performed By: #### 1 000, 4500, 4510, 4520, 54056, 5000, 06316, 98061 #### [facility] Unless Otherwise Noted [address] [address] / COLA #4724/CLIA # [id number] GFR/1.73 sq M predicted among blacks MDRD (S/P/Bld) [Vol rate/Area] 110.1 ml/m1.73 Normal [facility] Comment on above: Performed By: #### 1 000, 4500, 4510, 4520, 21691, 5000, 18275, 45312 #### [facility] [place] Unless Otherwise Noted [address] [place] [address] / COLA #4724/CLIA # [id number] GFR/1.73 sq M predicted among non-blacks MDRD (S/P/Bld) [Vol rate/Area] 91.0 ml/m1.73 Normal [facility] Comment on above: Performed By: #### 1 000, 4500, 4510, 4520, 02506, 5000, 85464, 54011 #### [facility] Unless Otherwise Noted [address] [address] / COLA #4724/CLIA # [id number] GFR/1.73 sq M predicted among non-blacks MDRD (S/P/Bld) [Vol rate/Area] 96.2 ml/m1.73 Normal [facility] Comment on above: Performed By: #### 1 000, 4500, 4510, 4520, 21896, 5000, 34540, 45362 #### [facility] [place] Unless Otherwise Noted [address] [place] [address] / COLA #4724/CLIA # [id number] Glucose [Mass/Vol] 109.0 mg/dL High 74.0-106.0 [facility] Comment on above: Performed By: #### 1 000, 4500, 4510, 4520, 01689, 5000, 58805, 88177 #### Endocrine [facility] Unless Otherwise Noted [address] [address] / COLA #4724/CLIA # [id number] Potassium [Moles/Vol] 4.3 mmol/L Normal 3.5-5.1 End [facility] Comment on above: Performed By: #### 1 000, 4500, 4510, 4520, 97949, 5000, 70527, 16070 #### [facility]ocrine [facility] Unless Otherwise Noted [address] [address] / COLA #4724/CLIA # [id number] Protein [Mass/Vol] 6.8 g/dL Normal 6.3-8.2 [facility] Comment on above: Performed By: #### 1 000, 4500, 4510, 4520, 86763, 5000, 64741, 37617 #### [facility]ocrine [facility] Unless Otherwise Noted [address] [address] / COLA #4724/CLIA # [id number] Sodium [Moles/Vol] 137.0 mmol/L Normal 137.0-145.0 End [facility] Comment on above: Performed By: #### 1 000, 4500, 4510, 4520, 60318, 5000, 11470, 78459 #### [facility] Unless Otherwise Noted [address] [address] / COLA #4724/CLIA # [id number] Urea nitrogen [Mass/Vol] 23.0 mg/dL High 7.0-17.0 [facility] Comment on above: Performed By: #### 1 000, 4500, 4510, 4520, 67942, 5000, 94733, 81936 #### [facility] Unless Otherwise Noted [address] [place] [address] / COLA #4724/CLIA # [id number] FT3on 11-25-2019 FT3 4.39 pg/mL Normal 2.71-6.16 [facility] Comment on above: Performed By: #### 1 000, 4500, 4510, 4520, 74107, 5000, 31657, 27069 #### [facility] Unless Otherwise Noted [address] [place] [address] / COLA #4724/CLIA # [id number] FT4on 11-25-2019 Free T4 [Mass/Vol] 0.95 ng/dL Normal 0.64-1.79 Endocr [facility] Comment on above: Performed By: #### 1 000, 4500, 4510, 4520, 88510, 5000, 51136, 43215 #### [facility] Unless Otherwise Noted [address] [place] [address] / COLA #4724/CLIA # [id number] TSHon 11-25-2019 TSH Qn 0.35 uIU/ml Low 0.47-4.68 [facility] Comment on above: Performed By: #### 1 000, 4500, 4510, 4520, 76475, 5000, 77126, 57086 #### [facility] Unless Otherwise Noted [address] [place] [address] / COLA #4724/CLIA # [id number] Vital Signs Date Time Vital Sign Value Performing Clinician Facility 09-29-2023 10:33-0500 Body height 167.6 cm South Saba DO Work Phone: [facility] 09-29-2023 10:33-0500 Body weight 62.14 kg South Saba DO Work Phone: [facility] 09-12-2023 10:00-0400 Body height 167.64 cm Roland Ball Other [employer] Other 09-12-2023 10:00-0400 Body mass index (BMI) [Ratio] 23.05 kg/m2 Roland Ball Other [employer] Other 09-12-2023 10:00-0400 Body weight 64.77 kg Roland Ball Other [employer] Other 09-12-2023 10:00-0400 Diastolic blood pressure 75 mm[Hg] Roland Ball Other [employer] Other 09-12-2023 10:00-0400 Respiratory rate 12 /min Roland Ball Other [employer] Other 09-12-2023 10:00-0400 Systolic blood pressure 131 mm[Hg] Roland Ball Other [employer] Other 08-29-2023 10:55-0400 Body height 167.6 cm Elder Angelia SERVICE OPERATOR.LION TRAINER Work Phone: [facility] 08-29-2023 10:55-0400 Body temperature 98.01 [degF] Elder Angelia SERVICE OPERATOR.LION TRAINER Work Phone: [facility] 08-29-2023 10:55-0400 Body weight 66.68 kg Elder Angelia SERVICE OPERATOR.LION TRAINER Work Phone: [facility] 08-29-2023 10:55-0400 Diastolic blood pressure 78 mm[Hg] Elder Angelia SERVICE OPERATOR.LION TRAINER Work Phone: [facility] 08-29-2023 10:55-0400 Heart rate 82 /min Elder Angelia SERVICE OPERATOR.LION TRAINER Work Phone: [facility] 08-29-2023 10:55-0400 SaO2% (BldA) [Mass fraction] 99 % Elder Angelia SERVICE OPERATOR.LION TRAINER Work Phone: [facility] 08-29-2023 10:55-0400 Systolic blood pressure 163 mm[Hg] Elder Angelia SERVICE OPERATOR.LION TRAINER Work Phone: [facility] 08-29-2023 10:03-0400 Body temperature 98.01 [degF] Heidi Macdonald MD Work Phone: [facility] 08-29-2023 10:03-0400 Body weight 66.68 kg Heidi Macdonald MD Work Phone: [facility] 08-29-2023 10:03-0400 Diastolic blood pressure 77 mm[Hg] Heidi Macdonald MD Work Phone: [facility] 08-29-2023 10:03-0400 Heart rate 82 /min Heidi Macdonald MD Work Phone: [facility] 08-29-2023 10:03-0400 Respiratory rate 16 /min Heidi Macdonald MD Work Phone: [facility] 08-29-2023 10:03-0400 SaO2% (BldA) [Mass fraction] 99 % Heidi Macdonald MD Work Phone: [facility] 08-29-2023 10:03-0400 Systolic blood pressure 157 mm[Hg] Heidi Macdonald MD Work Phone: [facility] 07-04-2023 09:18-0400 Body height 167.6 cm South Saba DO Work Phone: [facility] 07-04-2023 09:18-0400 Body temperature 97.59 [degF] South Saba DO Work Phone: [facility] 07-04-2023 09:18-0400 Body weight 66.5 kg South Saba DO Work Phone: [facility] 07-04-2023 09:18-0400 Diastolic blood pressure 68 mm[Hg] South Saba DO Work Phone: [facility] 07-04-2023 09:18-0400 Heart rate 73 /min South Saba DO Work Phone: [facility] 07-04-2023 09:18-0400 SaO2% (BldA) [Mass fraction] 100 % South Saba DO Work Phone: [facility] 07-04-2023 09:18-0400 Systolic blood pressure 139 mm[Hg] South Saba DO Work Phone: [facility] 06-27-2023 10:30-0400 Body temperature 97.39 [degF] Heidi Macdonald MD Work Phone: [facility] 06-27-2023 10:30-0400 Body weight 69.4 kg Heidi Macdonald MD Work Phone: [facility] 06-27-2023 10:30-0400 Diastolic blood pressure 76 mm[Hg] Heidi Macdonald MD Work Phone: [facility] 06-27-2023 10:30-0400 Heart rate 70 /min Heidi Macdonald MD Work Phone: [facility] 06-27-2023 10:30-0400 Respiratory rate 16 /min Heidi Macdonald MD Work Phone: [facility] 06-27-2023 10:30-0400 SaO2% (BldA) [Mass fraction] 97 % Heidi Macdonald MD Work Phone: [facility] 06-27-2023 10:30-0400 Systolic blood pressure 141 mm[Hg] Heidi Macdonald MD Work Phone: [facility] 05-23-2023 09:45-0400 Body height 167.64 cm Roland Ball Other [employer] Other 05-23-2023 09:45-0400 Body mass index (BMI) [Ratio] 24.79 kg/m2 Roland Ball Other [employer] Other 05-23-2023 09:45-0400 Body weight 69.67 kg Roland Ball Other [employer] Other 05-23-2023 09:45-0400 Diastolic blood pressure 78 mm[Hg] Roland Ball Other [employer] Other 05-23-2023 09:45-0400 Respiratory rate 12 /min Roland Ball Other [employer] Other 05-23-2023 09:45-0400 Systolic blood pressure 158 mm[Hg] Roland Ball Other [employer] Other 04-23-2023 13:30-0400 Body height 167.64 cm Roland Ball Other [employer] Other 04-23-2023 13:30-0400 Body mass index (BMI) [Ratio] 24.34 kg/m2 Roland Ball Other [employer] Other 04-23-2023 13:30-0400 Body weight 68.4 kg Roland Ball Other [employer] Other 04-23-2023 13:30-0400 Diastolic blood pressure 74 mm[Hg] Roland Ball Other [employer] Other 04-23-2023 13:30-0400 Respiratory rate 12 /min Roland Ball Other [employer] Other 04-23-2023 13:30-0400 Systolic blood pressure 131 mm[Hg] Roland Ball Other [employer] Other 03-05-2023 09:30-0400 Body height 167.6 cm Juan Manuel Pack SERVICE OPERATOR.LION TRAINER Work Phone: [facility] 03-05-2023 09:30-0400 Body weight 70.22 kg Juan Manuel Pack SERVICE OPERATOR.LION TRAINER Work Phone: [facility] 03-05-2023 09:30-0400 Diastolic blood pressure 90 mm[Hg] Juan Manuel Pack SERVICE OPERATOR.LION TRAINER Work Phone: [facility] 03-05-2023 09:30-0400 Heart rate 85 /min Juan Manuel Pack SERVICE OPERATOR.LION TRAINER Work Phone: [facility] 03-05-2023 09:30-0400 Systolic blood pressure 152 mm[Hg] Juan Manuel Pack SERVICE OPERATOR.LION TRAINER Work Phone: [facility] 01-24-2023 08:45-0500 Body height 167.64 cm Roland Ball Other [employer] Other 01-24-2023 08:45-0500 Body mass index (BMI) [Ratio] 24.05 kg/m2 Roland Ball Other [employer] Other 01-24-2023 08:45-0500 Body temperature 96.7 [degF] Roland Ball Other [employer] Other 01-24-2023 08:45-0500 Body weight 67.59 kg Roland Ball Other [employer] Other 01-24-2023 08:45-0500 Diastolic blood pressure 93 mm[Hg] Roland Serrano Other [employer] Other 01-24-2023 08:45-0500 Systolic blood pressure 165 mm[Hg] Roland Serrano Other [employer] Other 01-20-2023 13:35-0500 Body height 167.64 cm Olya Gann Other [employer] Other 01-20-2023 13:35-0500 Body mass index (BMI) [Ratio] 24.53 kg/m2 Olya Alonzoault Other [employer] Other 01-20-2023 13:35-0500 Body temperature 97.3 [degF] Olya Sanjuanita Other [employer] Other 01-20-2023 13:35-0500 Body weight 68.95 kg Olya Gann Other [employer] Other 01-20-2023 13:35-0500 Respiratory rate 18 /min Olya Gann Other [employer] Other 01-20-2023 13:35-0500 SaO2% (BldA) [Mass fraction] 95 % Olyacameron Gann Other [employer] Other 01-03-2023 15:27-0500 Body height 167.6 cm Henry Ramos MD Work Phone: [facility] 01-03-2023 15:27-0500 Body temperature 97.81 [degF] Henry Ramos MD Work Phone: [facility] 01-03-2023 15:27-0500 Body weight 71.17 kg Henry Ramos MD Work Phone: [facility] 01-03-2023 15:27-0500 Diastolic blood pressure 87 mm[Hg] Henry Ramos MD Work Phone: [facility] 01-03-2023 15:27-0500 Heart rate 95 /min Henry Ramos MD Work Phone: [facility] 01-03-2023 15:27-0500 SaO2% (BldA) [Mass fraction] 99 % Henry Ramos MD Work Phone: [facility] 01-03-2023 15:27-0500 Systolic blood pressure 141 mm[Hg] Henry Ramos MD Work Phone: [facility] 09-26-2022 12:30-0500 Diastolic blood pressure 89 mm[Hg] Leila Alamo MD Work Phone: [facility] 09-26-2022 12:30-0500 Heart rate 79 /min Leila Alamo MD Work Phone: [facility] 09-26-2022 12:30-0500 Respiratory rate 18 /min Leila Alamo MD Work Phone: [facility] 09-26-2022 12:30-0500 SaO2% (BldA) [Mass fraction] 98 % Leila Alamo MD Work Phone: [facility] 09-26-2022 12:30-0500 Systolic blood pressure 140 mm[Hg] Leila Alamo MD Work Phone: [facility] 09-26-2022 11:25-0500 Body height 167.6 cm Leila Alamo MD Work Phone: [facility] 09-26-2022 11:25-0500 Body temperature 98.2 [degF] Leila Alamo MD Work Phone: [facility] 09-26-2022 11:25-0500 Body weight 68.04 kg Leila Alamo MD Work Phone: [facility] 08-07-2022 15:28-0400 Body weight 68.95 kg Henry Ramos MD Work Phone: [facility] 08-07-2022 15:28-0400 Diastolic blood pressure 91 mm[Hg] Henry Ramos MD Work Phone: [facility] 08-07-2022 15:28-0400 SaO2% (BldA) [Mass fraction] 98 % Henry Ramos MD Work Phone: [facility] 08-07-2022 15:28-0400 Systolic blood pressure 132 mm[Hg] Henry Ramos MD Work Phone: [facility] 03-13-2022 14:38-0400 Body height 169.5 cm Henry Ramos MD Work Phone: [facility] 03-13-2022 14:38-0400 Body temperature 96.8 [degF] Henry Ramos MD Work Phone: [facility] 03-13-2022 14:38-0400 Body weight 66.32 kg Henry Ramos MD Work Phone: [facility] 03-13-2022 14:38-0400 Diastolic blood pressure 96 mm[Hg] Henry Ramos MD Work Phone: [facility] 03-13-2022 14:38-0400 Heart rate 85 /min Henry Ramos MD Work Phone: [facility] 03-13-2022 14:38-0400 Respiratory rate 16 /min Henry Ramos MD Work Phone: [facility] 03-13-2022 14:38-0400 SaO2% (BldA) [Mass fraction] 98 % Henry Ramos MD Work Phone: [facility] 03-13-2022 14:38-0400 Systolic blood pressure 151 mm[Hg] Henry Ramos MD Work Phone: [facility] 07-07-2021 14:50-0400 Diastolic blood pressure 101 mm[Hg] Mayra Michel MD Work Phone: [facility] Work Phone: 07-07-2021 14:50-0400 Heart rate 70 /min Mayra Michel MD Work Phone: [facility] Work Phone: 07-07-2021 14:50-0400 Respiratory rate 13 /min Mayra Michel MD Work Phone: [facility] Work Phone: 07-07-2021 14:50-0400 SaO2% (BldA) [Mass fraction] 99 % Mayra Michel MD Work Phone: [facility] Work Phone: 07-07-2021 14:50-0400 Systolic blood pressure 133 mm[Hg] Mayra Michel MD Work Phone: [facility] Work Phone: 07-07-2021 13:25-0400 Body height 167.6 cm Mayra Michel MD Work Phone: [facility] Work Phone: 07-07-2021 13:25-0400 Body mass index (BMI) [Ratio] 24.19 kg/m2 Mayra Michel MD Work Phone: [facility] Work Phone: 07-07-2021 13:25-0400 Body temperature 98.6 [degF] Mayra Michel MD Work Phone: [facility] Work Phone: 07-07-2021 13:25-0400 Body weight 67.99 kg Mayra Michel MD Work Phone: [facility] Work Phone: 11-25-2019 16:19-0500 Body weight 70.4 Kg [facility] Comment on above: Performed By: #### 1000, 4500, 4510, 452 0, 85011, 5000, 19137, 92355 #### [facility] Unless Otherwise Noted [address] [place] [address] / COLA #[id number]/LAKIA # [id number] Encounters Encounter Date Encounter Type Care Provider Facility Start: 10-23-2023 End: 10-23-2023 ambulatory Roland Serrano Other [employer] Other Start: 10-23-2023 Telephone encounter Roland Serrano [facility] Start: 10-02-2023 End: 10-02-2023 ambulatory LEIGH MORENO Not Available Start: 09-29-2023 End: 09-30-2023 ambulatory ROLAND Bernie MAGGIE Facility:[facility] Start: 09-29-2023 End: 09-29-2023 Patient encounter procedure Jackson Valente DO Work Phone: Colorectal Surgery Comment on above: Radiation proctitis (Primary Dx); Endometrial cancer (HCC) Start: 09-21-2023 End: 09-21-2023 ambulatory Roland Serrano Other [employer] Other Start: 09-21-2023 Telephone encounter [facility] Start: 09-18-2023 End: 09-18-2023 ambulatory Roland Serrano Other [employer] Other Start: 09-18-2023 Telephone encounter [facility] Start: 09-17-2023 End: 09-17-2023 ambulatory Roland Serrano Other [employer] Other Start: 09-17-2023 Telephone encounter [facility] Start: 09-15-2023 End: 09-15-2023 ambulatory Roland Serrano Other [employer] Other Start: 09-15-2023 Telephone encounter Roland Serrano [facility] Start: 09-14-2023 End: 09-14-2023 ambulatory Roland Serrano Other [employer] Other Start: 09-14-2023 Telephone encounter Roland Serrano [facility] Start: 09-12-2023 End: 09-12-2023 ambulatory Roland Serrano Other [employer] Other Start: 09-12-2023 Encounter for genera l adult medical examination without abnormal findings Roland Serrano [facility] Start: 09-12-2023 Periodic preventive med est patient 40-64yrs Roland Serrano [facility] Start: 09-10-2023 End: 09-10-2023 ambulatory Roland Serrano Other [employer] Other Start: 09-10-2023 Telephone encounter Roland Serrano [facility] Start: 09-03-2023 End: 09-03-2023 ambulatory Roland Serrano Other [employer] Other Start: 09-03-2023 Telephone encounter Roland Serrano [facility] Start: 09-02-2023 Telephone encounter Roland Serrano [facility] Start: 09-02-2023 End: 09-02-2023 ambulatory ROLAND E BALL [facility] Other Start: 09-01-2023 End: 09-01-2023 ambulatory Roland Maggie Other [employer] Other Start: 09-01-2023 Telephone encounter Roland Ball [facility] Start: 08-29-2023 End: 08-29-2023 ambulatory ROLAND E BALL Facility:[facility] Start: 08-29-2023 End: 08-30-2023 ambulatory ROLAND E BALL Facility:[facility] Start: 08-29-2023 Encounter for other preprocedural examination ELDER GALAN [facility] Start: 08-29-2023 End: 08-29-2023 ambulatory ROLAND SERRANO Facility:[facility] Start: 08-29-2023 End: 08-29-2023 Preprocedural examination done Elder Galan APRN.CNP Work Phone: [facility] Work Phone: Start: 08-29-2023 End: 08-29-2023 ambulatory Pulm Fct Lab Main 8 Pulmonary Medicine Comment on above: Spirometry Start: 08-29-2023 End: 08-29-2023 Patient encounter procedure Pulm Fct Lab Main 8 [facility] Comment on above: Dyspnea and respirat ory abnormalities (Primary Dx); Calcified nodule; Iron deficiency anemia due to chronic blood loss Pre-op evaluation (P rimary Dx) Start: 08-29-2023 End: 08-29-2023 Subsequent hospital visit by physician Xr Chest Main A21 Radiology Comment on above: Dyspnea, unspecified type [R06.00] Start: 08-26-2023 Orders Only Heidi Macdonald MD Work Phone: Respiratory [place] Comment on above: ILD (interstitial lamont ng disease) (HCC) (Primary Dx) Start: 08-22-2023 ambulatory South rincon DO Work Phone: [facility] Start: 08-22-2023 Patient encounter procedure [place] DO Work Phone: Colorectal Surgery Comment on above: Pre op appointment Start: 08-22-2023 End: 08-22-2023 Subsequent hospital visit by physician [facility] ([facility]-Stat) Work Phone: [facility] Radiology CT Scan Comment on above: Interstitial pulmona ry disease (HCC) [J84.9] Start: 08-14-2023 ambulatory ROLAND SERRANO Facilit y:[facility] Start: 08-04-2023 End: 08-04-2023 ambulatory Roland Serrano Other [employer] Other Start: 08-04-2023 Office outpatient vi sit 15 minutes Roland Serrano [facility] Start: 07-22-2023 ambulatory South Rendon estuardobernie DO Work Phone: Colorectal Surgery Start: 07-22-2023 Telephone encounter [place] S[place] DO Work Phone: Colorectal Surgery Comment on above: Patient Update Start: 07-08-2023 End: 07-08-2023 ambulatory Roland Serrano Other [employer] Other Start: 07-08-2023 Telephone encounter Roland VOGT [facility] Start: 07-04-2023 End: 07-05-2023 ambulatory [place] [...] procedure Pulm Fct Lab Main 9 [facility] Comment on above: Interstitial pulmona ry disease (HCC) (Primary Dx); Other secondary pulmonary hypertension (HCC) Start: 05-26-2023 ambulatory Henry perales MD Work Phone: Gynecology Oncology Comment on above: Procitis Start: 05-23-2023 End: 05-23-2023 ambulatory Roland Serrano Other [employer] Other Start: 05-23-2023 Office outpatient vi sit 15 minutes Roland Maggie [facility] Start: 05-13-2023 End: 05-13-2023 ambulatory Roland Serrano Other [employer] Other Start: 05-13-2023 Telephone encounter Roland VOGT [facility] Start: 04-23-2023 End: 04-23-2023 ambulatory Roland Serrano Other [employer] Other Start: 04-23-2023 Patient encounter procedure Roland Serrano [facility] Start: 03-25-2023 End: 03-25-2023 ambulatory Roland Serrano Other [employer] Other Start: 03-25-2023 Telephone encounter Roland Serrano [facility] Start: 03-21-2023 Telephone encounter Roland VOGT [facility] Start: 03-21-2023 End: 03-22-[address] ROLAND SERRANO [facility] Other Start: 03-11-2023 End: 03-11-2023 ambulatory Roland Serrano Other [employer] Other Start: 03-11-2023 Telephone encounter Roland Serrano [facility] Start: 03-10-2023 End: 03-11-[address] ROLAND SERRANO [facility] Other Start: 03-10-2023 Telephone encounter Roland Serrano [facility] Start: 03-05-2023 End: 03-05-2023 ambulatory ROLAND Bernie MAGGIE Facility:[facility] Start: 03-05-2023 End: 03-05-2023 Patient encounter procedure Juan Manuel Medina APRN.LION TRAINER Work Phone: Gastroenterology Comment on above: Rectal bleeding (Vivi nicho Dx) Start: 01-24-2023 End: 01-24-2023 ambulatory Roland Serrano Other [employer] Other Start: 01-24-2023 Office outpatient vi sit 15 minutes Roland Serrano [facility] Start: 01-23-2023 End: 01-23-2023 ambulatory Roland Serrano Other [employer] Other Start: 01-23-2023 Telephone encounter Roland Serrano TORIE [facility] Start: 01-20-2023 Office outpatient vi sit 15 minutes Olya Gann [facility] Start: 01-20-2023 End: 01-20-[address] ROLAND SERRANO [facility] Other Start: 01-07-2023 End: 01-07-2023 ambulatory Roland Serrano Other [employer] Other Start: 01-07-2023 [address]phone [address] Serrano [facility] Start: 01-03-2023 End: 01-04-2023 ambulatory ROLAND SERRANO Facility:[facility] Start: 01-03-2023 End: 01-04-2023 ambulatory ROLAND SERRANO Facility:[facility] Start: 01-03-2023 End: 01-04-2023 ambulatory Henry Ramos MD Work Phone: Gynecology Oncology Comment on above: Recurrent carcinoma of endometrium (HCC) (Primary Dx); Radiation proctitis; Blood per rectum Start: 01-03-2023 End: 01-04-2023 Patient encounter procedure Henry Ramos MD Work Phone: [facility] Start: 12-25-2022 Telephone encounter Aretha [...] examination without abnormal findings DR ROLAND SERRANO [facility] Start: 09-04-2022 End: 09-05-[address] ROLAND SERRANO Facility:[facility] Start: 09-04-2022 End: 09-05-2022 Encounter for general adult medical examination without abnormal findings DR ROLAND SERRANO Facility:[facility] Start: 08-29-2022 Adult health examination Roland Serrano Other [employer] Other Start: 08-29-2022 Encounter for genera l adult medical examination without abnormal findings Roland Serrano Other [employer] Other Start: 08-29-2022 Pre-procedure evaluation check Roland Serrano Other [employer] Other Start: 08-07-2022 End: 08-07-2022 ambulatory Henry Ramos MD Work Phone: Gynecology Oncology Comment on above: Recurrent carcinoma of endometrium (HCC) (Primary Dx); Radiation proctitis; Foreshortening of vagina; Endometrial cancer (HCC); Vaginal atrophy; Rectal bleeding Start: 08-07-2022 End: 08-07-2022 Patient encounter procedure Henry Ramos MD Work Phone: [facility] Start: 06-12-2022 End: 06-12-2022 ambulatory SALOMON AYAZ Facility: Start: 03-13-2022 End: 03-13-2022 ambulatory Henry Ramos MD Work Phone: Gynecology Oncology Comment on above: Recurrent carcinoma of endometrium (HCC) (Primary Dx); Vaginal atrophy; Foreshortening of vagina Start: 03-13-2022 End: 03-13-2022 Patient encounter procedure Henry Ramos MD Work Phone: [facility] Start: 11-21-2021 End: 11-22-2021 Emergency department patient visit [place] Bernie [facility] Start: 07-07-2021 End: 07-07-2021 Emergency department patient visit [facility] Start: 07-07-2021 End: 07-07-2021 Emergency department patient visit Mayra Michel MD Work Phone: [facility] Comment on above: Dizziness (Primary D x); Dehydration Procedures Date Procedure Procedure Detail Performing Clinician Start: 09-29-2023 Follow-up visit Follow Up [place] Start: 09-02-2023 Antibody screen BENJAMI N BALL Comment on above: Order Comment: Speci men Type: BLOOD SPECIMEN Ordering Facility: [facility] Address: [address] [address] Performed By: #### 5 [id number], [id number] #### [facility] CLIA [id number] [address] [place] [address] Start: 08-29-2023 Antibody screen JUAN SERRANO Comment on above: Order Comment: Speci men Type: BLOOD SPECIMEN Ordering Facility: [facility] Address: [address] [address] Performed By: #### 5 [id number], [id number] #### [facility] CLIA [id number] [address] [place] [address] Start: 08-29-2023 Spmtry w/vc expirato ry bernie w/wo mxml vol vntj Heidi Macdonald MD Work Phone: Start: 08-29-2023 Radiologic exam ches t 2 views Heidi Macdonald MD Work Phone: Start: 08-22-2023 Ct thorax w/o contra st material Hedii Macdonald MD Work Phone: Start: 06-27-2023 Brncdilat rspse spmt ry pre&post-brncdilat admn Heidi Macdonald MD Work Phone: Start: 09-26-2022 Colonoscopy flx dx w /collj spec when pfrmd Ernesto Chacko SERVICE OPERATOR.LION TRAINER Work Phone: Start: 09-26-2022 Colonoscopy Leila Alamo MD Work Phone: Start: 11-02-2021 Antibody screen Comment on above: Order Comment: Trans fuse now? N Result Comment: PERF ORMED BY: [facility] [address] [place] [address] PATHOLOGIST BILLING MANAGER CLAIRE ANTHONY M.D. Start: 10-15-2021 Antibody screen Comment on above: Order Comment: Date of Surgery: [id number] # of PRBC units on hold?: 2 Result Comment: PERF ORMED BY: [facility] [place] [address] PATHOLOGIST BILLING MANAGER CLAIRE ANTHONY M.D. Start: 09-20-2021 Adult depression scr eening assessment Henry Ramos MD Work Phone: Start: 08-20-2021 Antibody screen Comment on above: Order Comment: Date of Surgery: [id number] # of PRBC units on hold?: 2 Result Comment: PERF ORMED BY: [facility] [address] [place] [address] PATHOLOGIST BILLING MANAGER CLAIRE ANTHONY M.D. Start: 07-07-2021 Urinalysis microscopic [...] Author Start: 08-29-2026 Diabetes Screening Diabetes Screenin [facility] Start: 07-04-2026 DIABETES SCREEN DIABETES SCREEN [facility] Start: 07-04-2026 Diabetes Screening Diabetes Screenin [facility] Start: 09-26-2023 Colonoscopy COLONOSCOPY [facility] Start: 09-26-2023 COLORECTAL CANCER SCREENING COLORECTAL CANCER SCREENING [facility] Start: 08-26-2023 End: 09-24-2024 SPIROMETRY BASELINE ONLY SPIROMETRY BASELINE ONLY PFT Routine ILD (interstitial lung disease) (HCC) Expected: 08/26/2023, Expires: 09/24/2024 [facility] Work Phone: Comment on above: Expected: 08/26/2023 , Expires: 09/24/2024 Start: 07-22-2023 End: 09-21-2023 CBC W Auto Differential panel - Blood CBC + DIFF Lab Routine Radiation proctitis Expected: 07/22/2023, Expires: 09/21/2023 [facility] Work Phone: Comment on above: Expected: 07/22/2023 , Expires: 09/21/2023 Start: 07-22-2023 End: 09-21-2023 Comprehensive metabolic 2000 panel - Serum or Plasma COMP METABOLIC PANEL Lab Routine Radiation proctitis Expected: 07/22/2023 (Approximate), Expires: 09/21/2023 [facility] Work Phone: Comment on above: Expected: 07/22/2023 (Approximate), Expires: 09/21/2023 Start: 07-18-2023 Covid-19 Vaccine ( season) Covid-19 Vaccine () [facility] Start: 07-18-2023 Influenza vaccination [facility] Start: 11-17-2022 [facility] Start: 09-20-2022 Adult depression scr eening assessment DEPRESSION SCREENING [facility] Start: 08-12-2022 DIABETES SCREEN DIABETES SCREEN [facility] Start: 08-07-2022 End: 10-07-2022 CBC W Auto Differential panel - Blood CBC + DIFF Lab Routine Rectal bleeding Expected: 08/07/2022, Expires: 10/07/2022 [facility] Work Phone: Comment on above: Expected: 08/07/2022 , Expires: 10/07/2022 Start: 07-18-2022 Influenza vaccination [facility] Start: 11-27-2021 COVID-19 VACCINE (3 - Booster for Moderna series) COVID-19 VACCINE (3 - Booster for Moderna series) [facility] Start: 11-17-2021 DEPRESSION ASSESSMENT DEPRESSION ASS ESSMENT [facility] Start: 08-22-2021 COVID-19 VACCINE (3 - Booster for Moderna series) COVID-19 VACCINE (3 - Booster for Moderna series) [facility] Start: 08-22-2021 COVID-19 VACCINE (3 - Moderna series) COVID-19 VACCINE (3 - Moderna series) [facility] Start: 07-18-2021 Influenza vaccination Flu vaccine (# 1) [facility] Work Phone: Start: 2020 RSV Vaccine (1 - 1-d ose 60+ series) RSV Vaccine (1 - 1-dose 60+ series) [facility] Start: 2010 SHINGRIX VACCINE (1 of 2) [place] GRIX VACCINE (1 of 2) [facility] Start: 2005 COLOGUARD (FIT-DNA) COLOGUARD (FIT-D NA) [facility] Start: 2005 Colonoscopy COLONOSCOPY [facility] Start: 2005 COLORECTAL CANCER SCREENING COLORECTAL CANCER SCREENING [facility] Start: [address] COLONOGRAPHY [facility] Start: 2005 FECAL OCCULT BLOOD FECAL OCCULT BLOO D [facility] Start: 2005 Lipid 1996 panel - S marcela or Plasma Lipid Screening [facility] Start: 2005 LIPID SCREEN LIPID SCREEN [facility] Start: 2005 SIGMOIDOSCOPY SIGMOIDOSCOPY [facility] Start: 2000 Mammography [facility] Start: 1990 HPV TESTING HPV TESTING [facility] Start: 1981 PAP TESTING PAP TESTING [facility] Start: 1979 Urine microalbumin profile [facility] Start: 1978 ANNUAL PCP TEAM TECHNICAL SALES CONSULTANT SHAILA DISEASE VISIT ANNUAL PCP TEAM CHRONIC DISEASE VISIT [facility] Start: 1978 BP CONTROLLED (<130/80) BP CONTROLLE D (<130/80) [facility] Start: 1978 HEPATITIS C SCREENING HEPATITIS C SC ADELAIDA [facility] Start: 1978 HIV SCREENING HIV SCREENING [facility] End: 03-05-2024 Colonoscopy COLONOSCOPY (THERAPEUTIC) Endoscopy Routine Rectal bleeding 1 Occurrences starting 03/05/2023 until 03/05/2024 [facility] Work Phone: Comment on above: 1 Occurrences starti ng 03/05/2023 until 03/05/2024 End: 07-26-2024 Ct thorax w/o contrast material CT CHEST WO IVCON Radiology Routine Interstitial pulmonary disease (HCC) 1 Occurrences starting 06/27/2023 until 07/26/2024 [facility] [employer] Work Phone: Comment on above: 1 Occurrences starti ng 06/27/2023 until 07/26/2024 End: 07-07-2021 Culture, Urine Culture, Urine Microbiology Routine Once for 1 Occurrences starting 07/07/2021 until 07/07/2021 [facility] Work Phone: Comment on above: Once for 1 Occurrenc es starting 07/07/2021 until 07/07/2021 Culture, Urine Culture, Urine Microbiology Routine 07/07/2021 2:00 PM EDT [facility] Work Phone: End: 06-27-2024 Echocardiography ECHO Cardiology Routine Other secondary pulmonary hypertension (HCC) 1 Occurrences starting 06/27/2023 until 06/27/2024 [facility] Work Phone: Comment on above: 1 Occurrences starti ng 06/27/2023 until 06/27/2024 H&P for surgery H&P FOR SURGERY Procedures Routine Radiation proctitis Ordered: 07/22/2023 [facility] Work Phone: Comment on above: Ordered: 07/22/2023 End: 07-26-2024 LUNG DIFFUSION CAPACITY (DLCO) LUNG DIFFUSION CAPACITY (DLCO) PFT Routine Interstitial pulmonary disease (HCC) 1 Occurrences starting 06/27/2023 until 07/26/2024 [facility] Work Phone: Comment on above: 1 Occurrences starti ng 06/27/2023 until 07/26/2024 LUNG DIFFUSION CAPAC ITY (DLCO) LUNG DIFFUSION CAPACITY (DLCO) PFT Routine Interstitial pulmonary disease (HCC) 08/29/2023 9:27 AM EDT [facility] Work Phone: End: 07-26-2024 LUNG VOLUMES LUNG VOLUMES PFT Routine Interstitial pulmonary disease (HCC) 1 Occurrences starting 06/27/2023 until 07/26/2024 [facility] Work Phone: Comment on above: 1 Occurrences starti ng 06/27/2023 until 07/26/2024 End: 07-26-2024 Pulmonary ventilation & perfusion imaging NM LUNG VENT / PERF VQ Radiology Routine Other secondary pulmonary hypertension (HCC) 1 Occurrences starting 06/27/2023 until 07/26/2024 [facility] Work Phone: Comment on above: 1 Occurrences starti ng 06/27/2023 until 07/26/2024 REFER FOR ADMIT INTERVIEW REFER FOR ADMIT INTERVIEW Procedures Routine Radiation proctitis Ordered: 07/22/2023 [facility] Work Phone: Comment on above: Ordered: 07/22/2023 End: 08-07-2023 Screening colonoscopy COLONOSCOPY SCREENING Endoscopy Routine Rectal bleeding 1 Occurrences starting 08/07/2022 until 08/07/2023 [facility] Work Phone: Comment on above: 1 Occurrences starti ng 08/07/2022 until 08/07/2023 End: 09-26-2022 Screening colonoscopy COLONOSCOPY SCREENING Endoscopy Routine Rectal bleeding 1 Occurrences starting 09/26/2022 until 09/26/2022 [facility] Work Phone: Comment on above: 1 Occurrences starti ng 09/26/2022 until 09/26/2022 SPIROMETRY BASELINE ONLY SPIROME TRY BASELINE ONLY PFT Routine ILD (interstitial lung disease) (HCC) 08/29/2023 9:27 AM EDT [facility] Work Phone: SPIROMETRY WITH DILA TOR IF OBSTRUCTED SPIROMETRY WITH DILATOR IF OBSTRUCTED PFT Routine Dyspnea, unspecified type 06/27/2023 10:15 AM EDT [facility] Work Phone: [facility] Immunizations Immunization Date Immunization Notes Care Provider Fa hector 06-27-2021 COVID-19 vaccine, fu ll dose (MODERNA) Henry Ramos MD Work Phone: [facility] 11-21-2020 COVID-19 vaccine, fu ll dose (MODERNA) Henry Ramos MD Work Phone: [facility] Payers Date Payer Category Payer Unknown MMO MMO [employer] PLUS [id number] 2020-Present [phone] [address] [place] [address] PPO [id number] 2020 Unknown [id number] [id number] [id number] 1960 Unknown [id number] 2.16.840.1.624554.3.579.2.1 74 1960 Unknown [id number] 2.16.840.1.534669.3.579.2.1 74 1960 Unknown [id number] 2.16.840.1.327155.3.579.2.5 93 1960 Unknown [id number] 2.16.840.1.007544.3.579.2.5 93 1960 Unknown [id number] 2.16.840.1.893422.3.579.2.5 93 1960 Unknown [id number] 2.16.840.1.423248.3.579.2.5 93 1960 Unknown [id number] 2.16.840.1.155895.3.579.2.5 93 1960 Unknown [id number] 2.16.840.1.026362.3.579.2.5 93 1960 Unknown [id number] 2.16.840.1.531021.3.579.2.5 93 1960 Unknown [id number] 2.16.840.1.177156.3.579.2.1 259 1959 [facility] [id number] 1959 Unknown [id number] .[id number] Social History Date Type Detail Facility Start: 07-07-2021 End: 08-07-2022 Tobacco smoking status NHIS Never smoker [facility] Start: 07-07-2021 End: 08-07-2022 Tobacco use and exposure Never used [facility] Start: 1960 Sex Assigned At Not on file [employer] Work Phone: Start: 03-03-2022 End: 09-26-2022 Exposure to SARS-CoV-2 (event) Not sure [facility] Start: 03-13-2022 End: 09-29-2023 Alcohol intake Current drinker of alcohol (finding) [facility] Start: 07-28-2019 History SDOH Alcohol Comment 3 drinks per month [facility] Start: 03-05-2023 End: 06-27-2023 Sex Assigned At [facility] Start: 03-05-2023 End: 06-27-2023 History of Social function [facility] Adult Depression Screening Assessment 0 [facility] Clinical Notes 03-13-2022 to 10-23-2023 Note Date & Type Note Facility 10-23-2023 Evaluation note Encounter Date Diagnosis Assessment Notes Oct, Iron deficiency anemia due to chronic blood loss (ICD-10 - D50.0) Oct, Decreased thyroid stimulating hormone (TSH) level (ICD-10 - R79.89) Oct, Pulmonary hypertension (ICD-10 - I27.20) [employer] Other 11-13-2023 NoteHNO ID: [id number] Author: [place] Saba, DO Service: ? Author [...] mortality and/or complications of treatment plan: low [facility]11-13-2023 History of Present illness Narrative* South [...] of treatment plan: low documented in this encounterPeoples Hospital11-05-2023 Evaluation note* Encounter Date Diagnosis Assessment Notes Treatment Notes Treatment Clinical Notes Sep, Iron deficiency anemia due to chronic blood loss (ICD-10 - D50.0) Sep, 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) [employer] Other 11-01-2023 Evaluation note* Encounter Date Diagnosis Assessment Notes Treatment Notes Treatment Clinical Notes Sep, Elevated liver enzymes (ICD-10 - R74.8) Sep, Cholestasis (ICD-10 - K83.1) Sep, Thyrotoxicosis 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 storm, 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 - E05.90) [employer] Other 10-30-2023 Evaluation note* Encounter Date Diagnosis Assessment Notes Treatment Notes Treatment Clinical Notes Aug, Decreased thyroid stimulating hormone (TSH) level (ICD-10 - R79.89) [employer] Other 10-27-2023 Evaluation note* Encounter Date Diagnosis [...] Ferritin May be candidate for Fe IV [employer] Other 10-18-2023 Evaluation note* Encounter Date Diagnosis Assessment Notes Treatment Notes Treatment Clinical Notes Aug, Radiation proctitis (ICD-10 - K62.7) Aug, Iron deficiency anemia due to chronic blood loss (ICD-10 - D50.0) [employer] Other 10-17-2023 NoteHNO ID: [id number] Author: Brannon Sung APRN.ALIN Service: ? Author Type: Nurse Touring Production Manager Type: Anesthesia Procedure Notes Filed: 09/02/2023 8:05 AM Note Text: ANESTHESIOLOGY PROCEDURE NOTE Airway General Information Procedure Start Time/Medication Administration: 09/02/2023 7:58 AM Patient location during procedure: OR Timeout Performed Pre-procedure: timeout performed Consent Obtained: Yes Patient identity confirmed: arm band, care head orthopedic team physician and patient Staffing ACTIVITIES CONCIERGE: Brannon Sung APRN.ACTIVITIES CONCIERGE Performed by: ALIN Indications and Patient Condition [...] no Airway not difficult SIGNATURE: Brannon Sung APRN.ACTIVITIES CONCIERGE PATIENT NAME: Isabel Waddell DATE: September 02, 2023 TIME: 8:05 AM CSN: [id number] * Encounter Date Diagnosis Assessment Notes Treatment Notes Treatment Clinical Notes Aug, Dilated cardiomyopathy (ICD-10 - I42.0) Echo: LVEF normal, RVSP 31, LAE [employer] Other 10-13-2023 NoteHNO ID: [id number] Author: Heidi Menard MD Service: ? Author Type: Fellow Type: Progress Notes Filed: 08/29/2023 4:02 PM Note Text: Ms. Waddell is a 63 year old female who presents to the [facility] [place]. 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 Author Type: Registered Resp Therapist Type: Progress Notes Filed: 08/29/2023 9:52 AM Note Text: PULM FUNCTION SMARTBLOCK: Provider: Mike Presley MD Spirometry: 1 DLCO: 1 LV - Box[facility] History and physical note* Elder Galan, SERVICE OPERATOR.LION TRAINER - 08/29/2023 11:00 AM EDT COLON AND RECTAL HISTORY AND PHYSICAL EXAMINATION SERVICE DATE: 08/29/2023 Primary Care Physician: Roland Serrano DO Chief complaint: pre operative examination Surgeon: Dr. Saba Procedure: Examination under anesthesia, Flexible sigmoidoscopy, injection of formalin, or any other indicated procedure HPI: Isabel Waddlel is a 63 year old female who [...] of treatment plan: high documented in this encounterPeoples Hospital10-13-2023 NoteHNO ID: [id number] Author: Marshal Vasquez RT(R) Service: ? Author [...] BY: RT Tammy(R) August 29, 2023 9:10 [facility]10-13-2023 History of Present illness Narrative* Heidi Menard MD - 08/29/2023 10:00 AM EDT Images from the original note were not included. Ms. Waddell is a 63 year old female who presents to the [facility] [place]. 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 Hobbies:Biking Vacation: [place], [place] No significant exposure history except local [...] MULTIVITAMIN TAB^Take one(1) tablet daily.^Disp: ^Rfl: 0 [id number]-JFH-FISH OIL-L.CASEI ORAL^Take by mouth once daily.^Disp: ^Rfl: [...] personally reviewed by me Data Reviewed from [facility] (in addition to that noted in [...] MD Pulmonary and Critical Care Fellow [facility] [place] Staff note: I have personally interviewed and [...] Hilton Adame MD 08/29/2023 documented in this encounterPeoples Hospital10-13-2023 History of Present illness Narrative* Sveta Roman RRT - 08/29/2023 9:52 AM EDT PULM FUNCTION SMARTBLOCK: Provider: Mike Presley MD Spirometry: 1 DLCO: 1 LV - Box: 1 documented in this encounterPeoples Hospital10-13-2023 History of Present illness Narrative* Marshal Vasquez [...] 29, 2023 9:10 AM documented in this encounterPeoples Hospital10-10-2023 NoteHNO ID: [id number] Author: Gilberto Beth Service: ? Author Type: ? Type: Progress Notes Filed: 08/26/2023 4:28 PM Note Text: [place] to pair w dlco/lv on [facility] History of Present illness Narrative* Gilberto Beth - 08/26/2023 4:16 PM EDT [place] to pair w dlco/lv on upcoming f/u visit documented in this encounterPeoples Hospital10-06-2023 NoteHNO ID: [id number] Author: Nuvia Grewal RT(R) Service: Radiology Author Type: Orderlies Teacher Type: Progress Notes Filed: 08/22/2023 8:34 AM [...] BY: DAVID Ann) August 22, 2023 8:33 AMSpanish [facility]ork [id number] History of Present illness Narrative* Nuvia Grewal [...] 22, 2023 8:33 AM documented in this encounterPeoples Hospital09-18-2023 Evaluation note* Encounter Date Diagnosis Assessment Notes [...] symptoms. Will initiate antibiotics and have called [facility]. Since her symptoms developed > 5 days ago, no Paxlovid has been prescribed Jul, Bronchitis, not specified as acute or chronic (ICD-10 - J40) Instructed to use Robitussin or Mucinex for cough, saline or Flonase NS for congestion, Tylenol for pain and fever. [employer] Other 09-05-2023 Miscellaneous Notes* Telephone Encounter - Divya Karimi - 07/22/2023 3:17 PM EDT Isabel Waddell accepts 09/01 and 09/02 dates for preop and surgery documented in this encounterPeoples Hospital09-05-2023 Miscellaneous Notes* Telephone Encounter - Enid Baker - 07/22/2023 2:48 PM EDT [phone] Patient calling to reschedule her EUA. documented in this encounterPeoples Hospital08-22-2023 Evaluation note* Encounter Date Diagnosis Assessment Notes Treatment Notes Treatment Clinical Notes Jun, SHERIF (generalized anxiety disorder) (ICD-10 - F41.1) [employer] Other 08-18-2023 History and physical note* South [...] regular bowel movements. 03/05/23 Juan Manuel Medina, LION TRAINER: Isabel Waddell is a 62 year old [...] 150 mg by mouth daily at bedtime. [id number]-ZMH-FISH OIL-L.CASEI ORAL Take by mouth once daily. [...] Documents Reviewed/ordered: Review of prior notes from [facility], pulmonary medicine Review of prior operative reports [...] of treatment plan: high documented in this encounterPeoples Hospital08-11-2023 NoteHNO ID: [id number] Author: Heidi Menard MD Service: ? Author Type: Fellow Type: Progress Notes Filed: 06/29/2023 8:14 AM Note Text: Ms. Waddell is a 63 year old female who presents to the [facility] [place]. Consultation requested by Self. 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 Silica: No significant exposure. Gregg: No significant exposure. Organic HP antigen: No [...] Rectal, Enteric Tube, Stom (more content not included)...[facility]08-11-2023 NoteHNO ID: [id number] Author: Dayan Marley, FAMILIA Service: ? Author Type: Registered Resp Therapist Type: Progress Notes Filed: 06/27/2023 10:27 AM Note Text: PULM FUNCTION SMARTBLOCK: Provider: Pedro Rodarte MD Spirometry: 1 System: 3 - [id number] City Hospital08-11-2023 History of Present illness Narrative* Heidi Menard MD - 06/27/2023 10:29 AM EDT Images from the original note were not included. Ms. Waddell is a 63 year old female who presents to the [facility] [place]. Consultation requested by Self. 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 Silica: No significant exposure. Gregg: No significant exposure. Organic HP antigen: No [...] 150 mg by mouth daily at bedtime. [id number]-PYN-NGD-FISH OIL-L.CASEI ORAL Take by mouth once daily. [...] personally reviewed by me Data Reviewed from [facility] (in addition to that noted in [...] MD Pulmonary and Critical Care Fellow Res[facility] [place] STAFF ATTENDING NOTE I have personally interviewed [...] Mike Thompson MD 06/29/2023 documented in this encounterPeoples Hospital08-11-2023 History of Present illness Narrative* Dayan Marley RRT - 06/27/2023 10:26 AM EDT PULM FUNCTION SMARTBLOCK: Provider: Pedro oRdarte MD Spirometry: 1 System: 3 - [id number] documented in this encounterPeoples Hospital07-07-2023 Evaluation note* Encounter Date Diagnosis Assessment Notes [...] and feet daily for blisters and ulcerations. [employer] Other 06-27-2023 Evaluation note* Encounter Date Diagnosis Assessment Notes Treatment Notes Treatment Clinical Notes Apr, History of total right hip replacement (ICD-10 - Z96.641) [employer] Other 06-07-2023 Evaluation note* Encounter Date Diagnosis [...] F41.1) Healthy diet, exercise and keep active [employer] Other 2023 Evaluation note* Encounter Date Diagnosis Assessment Notes Treatment Notes Treatment Clinical Notes March, Mild intermittent asthma without complication (ICD-10 - J45.20) [employer] Other 05-05-2023 Evaluation note* Encounter Date Diagnosis Assessment Notes Treatment Notes Treatment Clinical Notes March, Dyspnea on exertion (ICD-10 - R06.09) [employer] Other 04-24-2023 Evaluation note* Encounter Date Diagnosis Assessment Notes Treatment Notes Treatment Clinical Notes Feb, Shortness of breath (ICD-10 - R06.02) Feb, Subacute cough (ICD-10 - R05.2) [employer] Other 04-19-2023 Instructions* Patient Instructions* Juan Manuel Medina APRN.LION TRAINER - 03/05/2023 9:47 AM EDT Images from the original note were not included. Thank you for seeing me in clinic today. As we discussed, my recommendations are as follows: 1.Colonoscopy If you have any questions about the above treatment plan, please do not hesitate to call the officeor send me a [employer] message. Bowel Preparation Instructions for: Miralax-Gatorade Preparations [...] If you do not have a responsible hack driver (family member or friend) withyou to take you home, your exam cannot be done with sedation and will be cancelled. Please bring a list of all of your current medications, including any Fnql-gee-Ycsdwqb medications with you. Medications If you take [...] your exam. 2 10/2019 documented in this encounterPeoples Hospital04-19-2023 History and physical note * Juan Manuel [...] Abs Lymph 1.00 - 4.00 k/uL 1.31 Martin% % 11.1 Abs Martin <0.87 k/uL 0.50 Eosin% % 3.1 Abs [...] 150 mg by mouth daily at bedtime. [id number]-JRW-TMH-FISH OIL-L.CASEI ORAL Take by mouth once daily. [...] -radiation proctitis?? This note was dictated using [employer] speech recognition software and may contain some errors that were a result of the program not accurately transcribing what was dictated. Juan Manuel Medina APRN.MONSERRAT documented in this encounterPeoples Hospital03-10-2023 Evaluation note* Encounter Date Diagnosis Assessment Notes Treatment Notes Treatment Clinical Notes Jan, Acute bronchitis due to other specified organisms (ICD-10 - J20.8) Instructed to use Robitussin or Mucinex for cough, saline or Flonase NS for congestion, Tylenol for pain and fever. [employer] Other 03-06-2023 Evaluation note* Encounter Date Diagnosis [...] weeks for the cough to go away [employer] Other 02-17-2023 NoteHNO ID: [id number] Author: Henry Ramos MD Service: ? Author Type: Physician Type: Progress Notes Filed: 01/12/2023 11:27 PM Note Text: Gynecologic Oncology [facility] Follow up visit Date of service: 01/03/2023 [...] differentiation, FIGO grade 2. Neg LVSI, 13% MO pT1a (IA): Tumor limited to endometrium or invades less than 1/2 of the myometrium 05/25/2021 Vaginal biopsy Vagina, biopsy - Consistent with endometrioid adenocarcinoma (see comment). GZ/ka 05/28/2021 COMMENT The tumor cells are diffusely and strongly positive for immunohistochemical stain for Allouez 8, supporting the above diagnosis. The patient [...] 150 mg by mouth daily at bedtime. JYLU9-IXO-AYP-FISH OIL-L.CASEI ORAL Take by mouth once daily. Lactobac no.41/Bifidobact no.7 (PROBIOTIC-10 ORAL) Take by mouth once daily. MULTIVITAMIN TAB Take (more content not included)...[facility] 01-03-2023 History of Present illness Narrative* Henry Ramos MD - 01/03/2023 3:20 PM EST Gynecologic Oncology [facility] Follow up visit Date of service: 01/03/2023 [...] differentiation, FIGO grade 2. Neg LVSI, 13% MO pT1a (IA): Tumor limited to endometrium or invades less than 1/2 of the myometrium 05/25/2021 Vaginal biopsy Vagina, biopsy - Consistent with endometrioid adenocarcinoma (see comment). GZ/fiorella 05/28/2021 COMMENT The tumor cells are diffusely and strongly positive for immunohistochemical stain for Allouez 8, supporting the above diagnosis. The patient [...] 150 mg by mouth daily at bedtime. [id number]-EXU-OKK-FISH OIL-L.CASEI ORAL Take by mouth once daily. [...] improving. She has a trip planned to [facility] next week for 10 days. PHYSICAL EXAM: [...] or swelling. Deep tendon reflexes are present Survey Rodman for exam: Gurpreet Villarreal APRN.CNP RESULTS: CA [...] - Referral to Dr. Sita Naidu [facility] [place] - Mammogram gets this done locally, will review with PCP - Colonoscopy due, will review with PCP 05/30/2021- Dee Dee Carter APRN.LION TRAINER (distance health visit) 61 yo female with [...] her today already. Test vaginal lesion for ER/MO receptors See me September 19 for post [...] hyperthyroidism, advised follow up with PCP and Cash Clerk. Ernesto Chacko APRN.LION TRAINER 03/13/2022 Recurrent Endometrial cancer with recurrence in [...] ferritin. Recommend she start following with a [facility] granite fabricator for her rectal bleeding. We will assistwith [...] 03, 2023 4:37 PM documented in this encounterPeoples Hospital02-08-2023 Miscellaneous Notes* Telephone Encounter - Aretha Pena [...] at 12/25/2022 12:04 PM EST ----- Regarding: [place] Patient bleeding and clotting almost daily since Colonoscopy. September was the Colonoscopy. Concerned and would like to know if she should schedule an appointment. [phone] documented in this encounterPeoples Hospital11-10-2022 Nurse Note* Francisca Gómez RN - 09/26/2022 [...] RN In Department: GASTROENTEROLOGY documented in this encounterPeoples Hospital11-10-2022 Miscellaneous Notes* Sedation Documentation - Aretha Deluna RN - 09/26/2022 12:00 PM EST Grounding pad placed at right flank. Skin Intact. LOT#[id number]. documented in this encounterPeoples Hospital11-03-2022 Miscellaneous Notes* Telephone Encounter - Kelly Ch MA - 09/19/2022 3:49 PM EDT Attempted to reach the patient at the contact number that they provided [phone] (home) . Unable to speak with patient so without identifying the patient the following information was left on their voice mail: Date of procedure, location and report time Prep instructions A message was left informing the patient/patient admissions representative they must have a responsible adult [...] Number to call with questions or concerns [phone] Number to call to cancel their procedure [phone] Kelly Ch MA documented in this encounterPeoples Hospital09-21-2022 Instructions* Patient Instructions* Ernesto Chacko APRN.MONSERRAT - [...] If you do not have a responsible hack driver (family member or friend) with you [...] your exam. 2 10/2019 documented in this encounterPeoples Hospital09-21-2022 History of Present illness Narrative* Henry Ramos MD - 08/07/2022 3:20 PM EDT Gynecologic Oncology [facility] Follow up visit Date of service: 08/07/2022 [...] differentiation, FIGO grade 2. Neg LVSI, 13% MO pT1a (IA): Tumor limited to endometrium or invades less than 1/2 of the myometrium 05/25/2021 Vaginal biopsy Vagina, biopsy - Consistent with endometrioid adenocarcinoma (see comment). GZ/ka 05/28/2021 COMMENT The tumor cells are diffusely and strongly positive for immunohistochemical stain for Allouez 8, supporting the above diagnosis. The patient [...] 150 mg by mouth daily at bedtime. [id number]-HDH-UTH-FISH OIL-L.CASEI ORAL Take by mouth once daily. [...] groin. LOWER EXTREMITIES: No swelling or edema. Survey Rodman for exam: Promise Mclaughlin MA RESULTS: 05/25/2021 - VAGINAL BIOPSY Vagina, biopsy - Consistent with endometrioid adenocarcinoma (see comment). GZ/ka 05/28/2021 COMMENT The tumor cells are diffusely and strongly positive for immunohistochemical stain for Allouez 8, supporting the above diagnosis. The patient [...] dedicated report for findings in the abdomen Wind Up Worker (topogram) images: None CA 125 (U/mL) Date Value 12/13/2021 9 06/04/2021 8 07/12/2019 15 ASSESSMENT & PLAN: 05/25/2021-Dee Dee Carter APRN.LION TRAINER [place] endometrioid type endometrial adenocarcinoma, FIGO grade [...] - Referral to Dr. Sita Naidu [facility] [place] - Mammogram gets this done locally, will review with PCP - Colonoscopy due, will review with PCP 05/30/2021- Dee Dee Carter APRN.LION TRAINER (distance health visit) 61 yo female with [...] her today already. Test vaginal lesion for ER/MO receptors See me September 19 for post [...] hyperthyroidism, advised follow up with PCP and Cash Clerk. Ernesto Chacko APRN.LION TRAINER 03/13/2022 Recurrent Endometrial cancer with recurrence in [...] 07, 2022 4:19 PM documented in this encounterPeoples Hospital04-27-2022 History of Present illness Narrative* Henry Ramos MD - 03/13/2022 2:50 PM EDT Gynecologic Oncology [facility] Follow up visit Date of service: 03/13/2022 [...] differentiation, FIGO grade 2. Neg LVSI, 13% MO pT1a (IA): Tumor limited to endometrium or invades less than 1/2 of the myometrium 05/25/2021 Vaginal biopsy Vagina, biopsy - Consistent with endometrioid adenocarcinoma (see comment). GZ/ka 05/28/2021 COMMENT The tumor cells are diffusely and strongly positive for immunohistochemical stain for Allouez 8, supporting the above diagnosis. The patient [...] 150 mg by mouth daily at bedtime. [id number]-NNN-VKV-FISH OIL-L.CASEI ORAL Take by mouth once daily. [...] absent LOWER EXTREMITIES: No swelling or edema. Survey Rodman for exam: Mod RESULTS: 05/25/2021 - VAGINAL BIOPSY Vagina, biopsy - Consistent with endometrioid adenocarcinoma (see comment). GZ/ka 05/28/2021 COMMENT The tumor cells are diffusely and strongly positive for immunohistochemical stain for Allouez 8, supporting the above diagnosis. The patient [...] dedicated report for findings in the abdomen Wind Up Worker (topogram) images: None CA 125 (U/mL) Date Value 12/13/2021 9 06/04/2021 8 07/12/2019 15 ASSESSMENT & PLAN: 05/25/2021-Dee Dee Carter APRN.LION TRAINER [place] endometrioid type endometrial adenocarcinoma, FIGO grade [...] - Referral to Dr. Sita Naidu [facility] [place] - Mammogram gets this done locally, will review with PCP - Colonoscopy due, will review with PCP 05/30/2021- Dee Dee Carter APRN.LION TRAINER (distance health visit) 61 yo female with [...] her today already. Test vaginal lesion for ER/MO receptors See me September 19 for post [...] hyperthyroidism, advised follow up with PCP and Cash Clerk. Ernesto Chacko APRN.LION TRAINER 03/13/2022 Recurrent Endometrial cancer with recurrence in [...] Histories independently gathered by the clinical sales support manager and the remaining scribed note accurately describes my personal service to the patient. documented in this encounterSt[facility]al[facility]* Diagnosis Dizziness- Primary Dizziness and giddiness Dehydration documented in this encounter [employer] Phone: evaluation note* Diagnosis Recurrent carcinoma of endometrium (HCC)- Primary Malignant neoplasm of corpus uteri, except isthmus Vaginal atrophy Postmenopausal atrophic vaginitis Foreshortening of vagina documented [facility] encounter [facility]* Diagnosis Recurrent carcinoma of endometrium (HCC)- Primary Malignant neoplasm of corpus uteri, except isthmus Radiation proctitis Other specified disorder of rectum and anus Foreshortening of vagina Endometrial cancer (HCC) Malignant neoplasm of corpus uteri, except isthmus Vaginal atrophy Postmenopausal atrophic vaginitis Rectal bleeding Hemorrhage of rectum and anus documented in this encounter [facility]* Diagnosis History of thyroid disease- Primary Personal history of other endocrine, metabolic, and immunity disorders Rectal bleeding Hemorrhage of rectum and anus documented in this encounter [facility]* Diagnosis Recurrent carcinoma of endometrium (HCC)- Primary Malignant neoplasm of corpus uteri, except isthmus Radiation proctitis Other specified disorder of rectum and anus Blood per rectum Hemorrhage of rectum and anus [facility] [employer] Other Evaluation note* Diagnosis Rectal bleeding- Primary Hemorrhage of rectum and anus documented in this encounter [facility] note* Diagnosis Radiation proctitis- Primary Other specified disorder of rectum and anus documented in this encounter [facility] note* Diagnosis Dyspnea, unspecified type- Primary documented in this encounter [facility] note* Diagnosis 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) documented in this encounter [facility] note* Diagnosis Radiation proctitis- Primary Other specified disorder of rectum and anus documented in this encounter [facility] note* Diagnosis Endometrial cancer (HCC)- Primary Malignant neoplasm of corpus uteri, except isthmus Radiation proctitis Other specified disorder of rectum and anus Radiation proctitis Other specified disorder of rectum and anus documented in this encounter [facility] note* Diagnosis Radiation proctitis- Primary Other specified disorder of rectum and anus documented in this encounter [facility] note* Diagnosis ILD (interstitial lung disease) (HCC)- Primary Postinflammatory pulmonary fibrosis Radiation proctitis Other specified disorder of rectum and anus documented in this encounter [facility] note* Diagnosis ILD (interstitial lung disease) (HCC) Postinflammatory pulmonary fibrosis Radiation proctitis Other specified disorder of rectum and anus documented in this encounter [facility] note* Diagnosis Interstitial pulmonary disease (HCC) Postinflammatory pulmonary fibrosis Radiation proctitis Other specified disorder of rectum and anus documented in this encounter [facility] note* Diagnosis Dyspnea and respiratory abnormalities- Primary Other dyspnea and respiratory abnormality Calcified nodule Localized superficial swelling, mass, or lump Iron deficiency anemia due to chronic blood loss Iron deficiency anemia secondary to blood loss (chronic) Radiation proctitis Other specified disorder of rectum and anus [facility] this [facility]* Diagnosis Dyspnea, unspecified type Radiation proctitis Other specified disorder of rectum and anus documented in this encounter [facility] note* Diagnosis Pre-op evaluation- Primary Preoperative examination, unspecified Radiation proctitis Other specified disorder of rectum and anus documented in this encounter [facility] note* Diagnosis Interstitial pulmonary disease (HCC) Postinflammatory pulmonary fibrosis documented in this encounter [facility] note* Diagnosis Radiation proctitis- Primary [...] right thumb excision of trapezi um 09/14/2020 [employer] Other [facility] general Narrative - Reported* Type Description Date Medical History menopause Medical History endometrial cancer hx Surgical History Bilateral Knee Scope Surgical History Bilateral Shoulder Scope Surgical History Bilateral Carpal Tunnel Surgical History x 3 Surgical History Pituatary Tumor Surgical History hysterectomy Surgical History right thumb excision of trapezi um 09/14/2020 Hospitalization History see surgical history [employer] Other [facility] general Narrative - Reported* Type Description Date Medical History menopause Medical History endometrial cancer hx Medical History Dilated Cardiomyopathy Surgical History Bilateral Knee Scope Surgical History Bilateral Shoulder Scope Surgical History Bilateral Carpal Tunnel Surgical History x 3 Surgical History Pituatary Tumor Surgical History hysterectomy Surgical History right thumb excision of trapezi um 09/14/2020 Hospitalization History see surgical history [employer] Other [facility] general Narrative - Reported* Type Description Date Medical History menopause Medical History endometrial cancer hx Medical History Dilated Cardiomyopathy Surgical History Bilateral Knee Scope Surgical History Bilateral Shoulder Scope Surgical History Bilateral Carpal Tunnel Surgical History x 3 Surgical History Pituatary Tumor Surgical History hysterectomy Surgical History right thumb excision of trapezi um 09/14/2020 Surgical History Sigmoidoscopy 08/2023 Hospitalization History see surgical history [employer] Other [facility] general Narrative - Reported* Type Description Date [...] Sigmoidoscopy 08/2023 Hospitalization History see surgical history [employer] Other Hospital Discharge instructions* Attachments The following attachments cannot be sent through Care Everywhere. * Dehydration (Burundian) * Oral Rehydration (Burundian) documented in this [facility] Phone: reason for referral (narrative)* Outpatient Procedure (Routine) - Closed Specialty Diagnoses / Procedures Referred By Contac t Referred To Contact [facility] Diagnoses Rectal bleeding Procedures COLONOSCOPY SCREENING COLONOSCOPY FLX DX W/COLLJ SPEC WHEN Ernesto Noble APRN.CNP [address] [place] [address] [address] Referral ID Status Reason Start Date Expiration Date V isits Requested Visits Authorized [id number] Closed Auto-Generate d Referral 08/07/2022 08/07/2023 1 1 [facility] for referral (narrative)* Outpatient Procedure (Routine) - Pending Review Specialty Diagnoses / Procedures Referred By Contac t Referred To Contact [facility] Diagnoses Rectal bleeding Procedures COLONOSCOPY (THERAPEUTIC) COLONOSCOPY FLX ABLATION TUMOR POLYP/OTHER Juan Manuel Mendoza APRN.LION TRAINER [address] [place] [address] [place] [address] [place] [address] Referral ID Status Reason Start Date Expiration Date Visits Requested Visits Authorized [id number] Pending Review Auto-Generat ed Referral 03/05/2023 03/05/2024 1 1 [facility] for referral (narrative)* Outpatient Procedure (Routine) - Authorized Specialty Diagnoses / Procedures Referred By Contac t Referred To Contact [facility] [place] Diagnoses Other secondary pulmonary hypertension (HCC) Procedures ECHO ECHO TTHRC R-T 2D W/WOM-MODE COMPL SPEC&COLR D Mike Presley MD [address] [place] [address] [address] Referral ID Status Reason Start Date Expiration Date Visits Requested Visits Authorized [id number] Authorized Auto-Generat ed Referral 06/27/2023 06/26/2024 1 1 * Diagnostic Procedure Only (Routine) - Pending Review Specialty Diagnoses / Procedures Referred By Kelly alberts Referred To [facility] MOLECULAR & FUNCTIONAL IMAGING Diagnoses Other secondary pulmonary hypertension (HCC) Procedures NM LUNG VENT / PERF VQ PULMONARY VENTILATION & PERFUSION IMAGING Mike Presley MD [address] [place] [address] Molecular & Functional Imaging [address] [place] [address] Referral ID Status Reason Start Date Expiration Date Visits Requested Visits Authorized [id number] Pending Review Auto-Generat ed Referral 06/27/2023 07/26/2024 1 1 * Outpatient Procedure (Routine) - Pending Review Specialty Diagnoses / Procedures Referred By Kelly alberts Referred To [facility] Diagnoses Interstitial pulmonary disease (HCC) Procedures LUNG VOLUMES Mike Presley MD [address] [place] [address] [place] [address] Referral ID Status Reason Start Date Expiration Date Visits Requested Visits Authorized [id number] Pending Review Auto-Generat ed Referral 06/27/2023 07/26/2024 1 1 * Outpatient Procedure (Routine) - Authorized Specialty Diagnoses / Procedures Referred By Kelly alberts Referred To [facility] Diagnoses Interstitial pulmonary disease (HCC) Procedures LUNG DIFFUSION CAPACITY (DLCO) DIFFUSING CAPACITY Mike Presley MD [address] [place] [address] [address] Referral ID Status Reason Start Date Expiration Date Visits Requested Visits Authorized [id number] Authorized Auto-Generat ed Referral 06/27/2023 07/26/2024 1 1 * MRI/CT (Routine) - Authorized Specialty Diagnoses / Procedures Referred By Kelly t Referred To Contact CT IMAGING Diagnoses Interstitial pulmonary disease (HCC) Procedures CT CHEST WO IVCON DIAGNOSTIC COMPUTED TOMOGRAPHY THORAX W/O CNTRST Mike Presley MD [address] [place] [address] Referral ID Status Reason Start Date Expiration Date Visits Requested Visits Authorized [id number] Authorized Auto-Generat ed Referral 06/27/2023 07/26/2024 1 1 [facility] for referral (narrative)* Outpatient Procedure (Routine) - Authorized Specialty Diagnoses / Procedures Referred By Kelly alberts Referred To Contact [facility] Diagnoses ILD (interstitial lung disease) (HCC) Procedures SPIROMETRY BASELINE ONLY SPMTRY W/VC EXPIRATORY BERNIE W/WO MXML VOL VNTJ Mike Presley MD [address] [place] [address] Respiratory [place] [address] [place] [address] Referral ID Status Reason Start Date Expiration Date Visits Requested Visits Authorized [id number] Authorized Auto-Generat ed Referral 09/24/2024 1 1 [facility] for visit Narrative* Outpatient Procedure (Routine) - Closed Specialty Diagnoses / Procedures Referred By Kelly t Referred To Contact [facility] Diagnoses Rectal bleeding Procedures COLONOSCOPY SCREENING COLONOSCOPY FLX DX W/COLLJ SPEC WHEN PFRMD Ernesto Chacko APRN.LION TRAINER [address] [place] [address] Digestive Disease [place] [address] [place] [address] Referral ID Status Reason Start Date Expiration Date V isits Requested Visits Authorized [id number] Closed Auto-Generate d Referral 08/07/2022 08/07/2023 1 1 [facility] Summary Purpose Family History No Family History Records FoundNo Family History Records FoundNo Family History Records FoundNo Family History Records FoundNo Family History Records FoundNo Family History Records FoundNo Family History Records Found Advance Directives Documents on File Type Date Recorded Patient Hand Shaper 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 Advance Directive(s) 08/12/2019 10:47 AM Advance Directive(s) 07/28/2019 9:20 AM Documents on File Type Date Recorded Patient Hand Shaper 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 Advance Directive(s) 07/28/2019 9:20 AM Documents on File Type Date Recorded Patient Hand Shaper 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 Advance Directive(s) 07/28/2019 9:20 AM Reason for Referral Specialty Diagnoses / Procedures Referred By Contac t Referred To Contact Gastroenterology Diagnoses Rectal bleeding Procedures CONSULT TO GASTROENTEROLOGY OFFICE/OUTPATIENT [facility] 60-74 MINUTES Ernesto Chacko APRN.LION TRAINER [address] [place] [address] Referral ID Status Reason Start Date Expiration Date Visits Requested Visits Authorized [id number] Authorized PCP Requested Referral 08/07/2022 08/07/2023 1 1 Specialty Diagnoses / Procedures Referred By Contac t Referred To Contact [facility] Diagnoses Rectal bleeding Procedures COLONOSCOPY SCREENING COLONOSCOPY FLX DX W/COLLJ SPEC WHEN PFRMD Ernesto Chacko APRN.LION TRAINER [address] [place] [id number] Dig[facility]ive [facility] [place] [address] [place], [place] [id number] Referral ID Status Reason Start Date Expiration Date Visits Requested Visits Authorized [id number] Pending Review Auto-Generat ed Referral 08/07/2022 08/07/2023 1 1 Specialty Diagnoses / Procedures Referred By Contac t Referred To Contact CT IMAGING Diagnoses Interstitial pulmonary disease (HCC) Procedures CT CHEST WO IVCON DIAGNOSTIC COMPUTED TOMOGRAPHY THORAX W/O CNTRST Mike Presley MD [address] [place] [address] Ct Imaging [place] [address] Referral ID Status Reason Start Date Expiration Date V isits Requested Visits Authorized [id number] Closed Auto-Generate d Referral 06/27/2023 07/26/2024 1 1 Reason Iron deficiency anem ia Diagnosis 1 Iron deficiency anem ia due to chronic blood loss (D50.0) Referral Organization [facility] Keira hahn Referring Provider First Name Roland Referring Provider Last Name Maggie Referring Provider Specialty Internal Me dicine Referred Organization [facility] Referred Provider NGA TATUM Referred Address [address] [place], [place],[address] Referred Provider Specialty Hematology Referral Priority Routine General Notes Mrs. Waddell is being r eferred for symptomatic iron deficiency anemia. 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 She has completed endoscopic treatment for her chronic bleeding and has received 2 units of PRBC while at [facility] for her procedure. I am referring Mrs. [...] DATE CREATED AUTHOR AUTHOR'S ORGANIZ ATION 03/20/2022 [facility] DATE CREATED AUTHOR AUTHOR'S ORGANIZ ATION 03/28/2023 [facility] DATE CREATED AUTHOR AUTHOR'S ORGANIZ ATION 08/25/2023 [facility] DATE CREATED AUTHOR AUTHOR'S ORGANIZ ATION 10/04/2023 [facility] dical Specialists [facility] DATE CREATED AUTHOR AUTHOR'S ORGANIZ ATION 10/09/2023 [facility] Reason for Visit (unrecogniz ed section [...] NEW HIGH MDM 60-74 MINUTES Ernesto Chacko APRN.LION TRAINER [address] [place] [address] Referral ID Status Reason Start Date Expiration Date V isits Requested Visits Authorized [id number] Closed PCP Requested Referral 08/07/2022 08/07/2023 1 1 Reason Comments Spirometry Specialty Diagnoses / Procedures Referred By Kelly alberts Referred To Contact [facility] Diagnoses Dyspnea, unspecified type Procedures SPIROMETRY WITH DILATOR IF OBSTRUCTED BRNCDILAT RSPSE SPMTRY PRE&POST-BRNCDILAT ADMN Pedro Rodarte MD [address] [place] [address] Respiratory [place] [address] [place] [address] Referral ID Status Reason Start Date Expiration Date V isits Requested Visits Authorized [id number] Closed Auto-Generate d Referral 05/23/2023 06/21/2024 1 1 Reason Comments New Reason Comments New Radiation proctitis Specialty Diagnoses / Procedures Referred By Kelly t Referred To Contact Colon and Rectal Surgery Diagnoses Radiation proctitis Procedures CONSULT TO COLO-RECTAL SURGERY OFFICE/OUTPATIENT NEW HIGH MDM 60-74 MINUTES Gurpreet Villarreal, SERVICE OPERATOR.LION TRAINER [address] [place] [address] [place] DO [address] [place] [address] Referral ID Status Reason Start Date Expiration Date V isits Requested Visits Authorized [id number] Closed PCP Requested Referral 05/16/2023 05/15/2024 1 1 Reason Comments Patient Update Specialty Diagnoses / Procedures Referred By Contac t Referred To Contact [facility] Diagnoses ILD (interstitial lung disease) (HCC) Procedures SPIROMETRY BASELINE ONLY SPMTRY W/VC EXPIRATORY BERNIE W/WO MXML VOL VNTJ Mike Presley MD [address] [place] [address] [place] [address] Referral ID Status Reason Start Date Expiration Date V isits Requested Visits Authorized [id number] Closed Auto-Generate d Referral 08/26/2023 09/24/2024 1 1 Specialty Diagnoses / Procedures Referred By Contac t Referred To Contact [facility] Diagnoses Interstitial pulmonary disease (HCC) Procedures LUNG DIFFUSION CAPACITY (DLCO) DIFFUSING CAPACITY Mike Presley MD [address] [place] [address] [place] [address] Referral ID Status Reason Start Date Expiration Date V isits Requested Visits Authorized [id number] Closed Auto-Generate d Referral 06/27/2023 07/26/2024 1 1 Reason Comments Radio Gen A21 Reason Comments Pre-Op Exam Specialty Diagnoses / Procedures Referred By Contac t Referred To Contact CT IMAGING Diagnoses Interstitial pulmonary disease (HCC) Procedures CT CHEST WO IVCON DIAGNOSTIC COMPUTED TOMOGRAPHY THORAX W/O CNTRST Mike Presley MD [address] [place] [address] [address] [facility] Referral ID Status Reason Start Date Expiration Date V isits Requested Visits Authorized [id number] Closed Auto-Generate d Referral 06/27/2023 07/26/2024 1 [...] or prosecute any alcohol or drug abuse patient.[facility] event this information is protected by the Federal Confidentiality of Alcohol and Drug Abuse Patient Records regulations: The Federal rules restrict any use of the information to criminally investigate or prosecute any alcohol or drug abuse patient.[facility] the event this information is protected by the Federal Confidentiality of Alcohol and Drug Abuse Patient Records regulations: The Federal rules restrict any use of the information to criminally investigate or prosecute any alcohol or drug abuse patient.[facility] the event this information is protected by the Federal Confidentiality of Alcohol and Drug Abuse Patient Records regulations: The Federal rules restrict any use of the information to criminally investigate or prosecute any alcohol or drug abuse patient.[facility] the event this information is protected by the Federal Confidentiality of Alcohol and Drug Abuse Patient Records regulations: The Federal rules restrict any use of the information to criminally investigate or prosecute any alcohol or drug abuse patient.[facility] the event this information is protected by the Federal Confidentiality of Alcohol and Drug Abuse Patient Records regulations: The Federal rules restrict any use of the information to criminally investigate or prosecute any alcohol or drug abuse patient.[facility] the event this information is protected by the Federal Confidentiality of Alcohol and Drug Abuse Patient Records regulations: The Federal rules restrict any use of the information to criminally investigate or prosecute any alcohol or drug abuse patient.[facility] the event this information is protected by the Federal Confidentiality of Alcohol and Drug Abuse Patient Records regulations: The Federal rules restrict any use of the information to criminally investigate or prosecute any alcohol or drug abuse patient.[facility] the event this information is protected by the Federal Confidentiality of Alcohol and Drug Abuse Patient Records regulations: The Federal rules restrict any use of the information to criminally investigate or prosecute any alcohol or drug abuse patient.[facility] the event this information is protected by the Federal Confidentiality of Alcohol and Drug Abuse Patient Records regulations: The Federal rules restrict any use of the information to criminally investigate or prosecute any alcohol or drug abuse patient.[facility] the event this information is protected by the Federal Confidentiality of Alcohol and Drug Abuse Patient Records regulations: The Federal rules restrict any use of the information to criminally investigate or prosecute any alcohol or drug abuse patient.[facility] the event this information is protected by the Federal Confidentiality of Alcohol and Drug Abuse Patient Records regulations: The Federal rules restrict any use of the information to criminally investigate or prosecute any alcohol or drug abuse patient.[facility] the event this information is protected by the Federal Confidentiality of Alcohol and Drug Abuse Patient Records regulations: The Federal rules restrict any use of the information to criminally investigate or prosecute any alcohol or drug abuse patient.[facility] the event this information is protected by the Federal Confidentiality of Alcohol and Drug Abuse Patient Records regulations: The Federal rules restrict any use of the information to criminally investigate or prosecute any alcohol or drug abuse patient.[facility] the event this information is protected by the Federal Confidentiality of Alcohol and Drug Abuse Patient Records regulations: The Federal rules restrict any use of the information to criminally investigate or prosecute any alcohol or drug abuse patient.[facility] the event this information is protected by the Federal Confidentiality of Alcohol and Drug Abuse Patient Records regulations: The Federal rules restrict any use of the information to criminally investigate or prosecute any alcohol or drug abuse patient.[facility] the event this information is protected by the Federal Confidentiality of Alcohol and Drug Abuse Patient Records regulations: The Federal rules restrict any use of the information to criminally investigate or prosecute any alcohol or drug abuse patient.[facility] the event this information is protected by the Federal Confidentiality of Alcohol and Drug Abuse Patient Records regulations: The Federal rules restrict any use of the information to criminally investigate or prosecute any alcohol or drug abuse patient.[facility] the event this information is protected by the Federal Confidentiality of Alcohol and Drug Abuse Patient Records regulations: The Federal rules restrict any use of the information to criminally investigate or prosecute any alcohol or drug abuse patient.[facility] the event this information is protected by the Federal Confidentiality of Alcohol and Drug Abuse Patient Records regulations: The Federal rules restrict any use of the information to criminally investigate or prosecute any alcohol or drug abuse patient.[facility] the event this information is protected by the Federal Confidentiality of Alcohol and Drug Abuse Patient Records regulations: The Federal rules restrict any use of the information to criminally investigate or prosecute any alcohol or drug abuse patient.[facility] the event this information is protected by the Federal Confidentiality of Alcohol and Drug Abuse Patient Records regulations: The Federal rules restrict any use of the information to criminally investigate or prosecute any alcohol or drug abuse patient.[facility] the event this information is protected by the Federal Confidentiality of Alcohol and Drug Abuse Patient Records regulations: The Federal rules restrict any use of the information to criminally investigate or prosecute any alcohol or drug abuse patient.[facility] the event this information is protected by the Federal Confidentiality of Alcohol and Drug Abuse Patient Records regulations: The Federal rules restrict any use of the information to criminally investigate or prosecute any alcohol or drug abuse patient.[facility] Care Teams (unrecognized sec tion and content) Publications Designer Relationship Specialty Start Date End Date Roland Serrano DO PCP - General 09/21/07 Kizzy Galloway RN Specialty Radio Broadcaster Radiation Oncology 06/12/21 Publications Designer Relationship Specialty Start Date End Date Roland Serrano DO PCP - General 09/21/07 [place] [address] [place] [address] Specialty Radio Broadcaster Radiation Oncology 06/12/21 Publications Designer Relationship Specialty Start Date End Date Roland Serrano DO [facility] General 09/21/07 Kizzy Galloway RN [id number] [place] [address] Specialty Radio Broadcaster Radiation Oncology 06/12/21 Publications Designer Relationship Specialty Start Date End Date Roland Serrano DO PCP - General 09/21/07 Kizzy Galloway RN [id number] [place] [address] Specialty Radio Broadcaster Radiation Oncology 06/12/21 Publications Designer Relationship Specialty Start Date End Date Roland Serrano DO PCP - General 09/21/07 Kizzy Galloway RN [address] [place] [address] Specialty Radio Broadcaster Radiation Oncology 06/12/21 Publications Designer Relationship Specialty Start Date End Date Roland Serrano DO PCP - General 09/21/07 Kizzy Galloway RN [address] [place] [address] Specialty Radio Broadcaster Radiation Oncology 06/12/21 Publications Designer Relationship Specialty Start Date End Date Roland Serrano DO PCP - General 09/21/07 Kizzy Galloway RN [address] [place] [address] Specialty Radio Broadcaster Radiation Oncology 06/12/21 Publications Designer Relationship Specialty Start Date End Date Roland Serrano DO [facility] - General 09/21/07 Kizzy Galloway RN [id number] [place] [id number] Specialty Radio Broadcaster Radiation Oncology 06/12/21 Publications Designer Relationship Specialty Start Date End Date Roland Serrano DO PCP - General 09/21/07 [place] [id number] [place] [address] Specialty Radio Broadcaster Radiation Oncology 06/12/21 Publications Designer Relationship Specialty Start Date End Date Roland Serrano DO PCP - General 09/21/07 Kizzy Galloway RN [address] [place] [phone] Specialty Radio Broadcaster Radiation Oncology 06/12/21 Publications Designer Relationship Specialty Start Date End Date Roland Serrano DO PCP - General 09/21/07 Kizzy Galloway RN [address] [place] [address] [phone] Specialty Radio Broadcaster Radiation Oncology 06/12/21 Publications Designer Relationship Specialty Start Date End Date Roland Serrano DO PCP - General 09/21/07 Kizzy Galloway RN [address] [place] [address] [id number] Specialty Radio Broadcaster Radiation Oncology 06/12/21 Publications Designer Relationship Specialty Start Date End Date Roland Serrano DO PCP - General 09/21/07 Kizzy Galloway RN [address] [place] [address] [id number] Specialty Radio Broadcaster Radiation Oncology 06/12/21 Publications Designer Relationship Specialty Start Date End Date Roland Serrano DO PCP - General 09/21/07 Kizzy Galloway RN [address] [place] [address] [phone] Specialty Radio Broadcaster Radiation Oncology 06/12/21 Publications Designer Relationship Specialty Start Date End Date Roland Serrano DO [facility] - General 09/21/07 Kizzy Galloway RN [id number] [place] [address] [phone] Specialty Radio Broadcaster Radiation Oncology 06/12/21 Publications Designer Relationship Specialty Start Date End Date Roland Serrano DO [facility] 09/21/07 [place]ay RN [id number] [place] [address] [phone] Specialty Radio Broadcaster Radiation Oncology 06/12/21 Publications Designer Relationship Specialty Start Date End Date Roland Serrano DO [facility] 09/21/07 Kizzy Galloway RN [address] [place] [address] [phone] Specialty Radio Broadcaster Radiation Oncology 06/12/21 Publications Designer Relationship Specialty Start Date End Date Roland Serrano DO [facility] 09/21/07 Kizzy Galloway RN [id number] [place] [address] [id number] Specialty Radio Broadcaster Radiation Oncology 06/12/21 Publications Designer Relationship Specialty Start Date End Date Roland Serrano DO [facility] 09/21/07 Kizzy Galloway RN [phone] [place] [address] [phone] Specialty Radio Broadcaster Radiation Oncology 06/12/21 FOR RECORDS PERTAINING TO [...] BE BASED ON THE PRIMARY CLINICAL RECORDS. [facility] [employer] [facility]. provides no warranty or guarantee of the accuracy or completeness of information in this document.
== END 2023-12-17 13:25 | disposition home or self-care (01) ==
LOC: MAMMO 13:24
PROVIDERS: PCP Internal Medicine; Visit Provider Internal Medicine
DX: Z12.31 Encounter for screening mammogram for malignant neoplasm of breast (principal); R92.8 Other abnormal and inconclusive findings on diagnostic imaging of breast
CPT/HCPCS: 77063; 77067

== ENCOUNTER 2023-12-23 07:32 | Outpatient (RCR) | payer BC, SELFPAY | END 2024-01-15 23:59 | disposition home or self-care (01) | LOC: INF 07:32 | PROVIDERS: PCP Internal Medicine; Visit Provider Internal Medicine Hematology & Oncology | DX: D72.819 Decreased white blood cell count, unspecified (principal); D64.9 Anemia, unspecified; D50.9 Iron deficiency anemia, unspecified; K90.9 Intestinal malabsorption, unspecified | CPT/HCPCS: G0463 ==

== ENCOUNTER 2024-01-18 18:35 | Emergency (ER) | payer BC, SELFPAY ==
--- NOTE | 2024-01-18 18:46 | XR_ITS ---
[address] [address] Patient Name: JOSEPHINE STOVER MRN: [id number] date: 1960 Sex: F Assigned Patient Location: ER Current Patient Location: Accession/Order Number: [id number] Exam Date: 01/18/2024 19:00 Report Date: 01/18/2024 20:09 At the request of: DYAN MCCORMACK Procedure: XR foot LT min 3V IMAGES REVIEWED: XR ankle LT min 3V, XR foot LT min 3V COMPARISON: 03/21/2021. CLINICAL INDICATION: pain s/p fall FINDINGS/IMPRESSION: 1. No evidence of acute osseous abnormality of the left ankle or left foot. 2. Moderate lateral ankle soft tissue swelling. 3. Moderate plantar calcaneal spur. Electronically authenticated by: SHRAVAN CUNHA Date: 01/18/2024 20:09
--- NOTE | 2024-01-18 18:46 | XR_ITS ---
[address] [address] Patient Name: JOSEPHINE STOVER MRN: [id number] date: 1960 Sex: F Assigned Patient Location: ER Current Patient Location: Accession/Order Number: [id number] Exam Date: 01/18/2024 19:00 Report Date: 01/18/2024 20:09 At the request of: DYAN MCCORMACK Procedure: XR ankle LT min 3V IMAGES REVIEWED: XR ankle LT min 3V, XR foot LT min 3V COMPARISON: 03/21/2021. CLINICAL INDICATION: pain s/p fall FINDINGS/IMPRESSION: 1. No evidence of acute osseous abnormality of the left ankle or left foot. 2. Moderate lateral ankle soft tissue swelling. 3. Moderate plantar calcaneal spur. Electronically authenticated by: SHRAVAN CUNHA Date: 01/18/2024 20:09
--- OUTSIDE RECORDS SUMMARY | 2024-01-18 18:47 | XMS_ITS | CCD ---
Author Name Unknown Address [address] [place] [address] Organization [facility] Care Team Providers Care Teletype Installer Name Role Phone Roland Serrano DO Primary Care Provider [phone] ROLAND SERRANO Primary Care Unavailable MAYRA MICHEL [...] Unavailable MAGGIE, DR YOUSSEF Primary Care Unavailable BALL, DR YOUSSEF Admitting Unavailable BALL, DR YOUSSEF Attending Unavailable BALL, DR YOUSSEF Consulting Unavailable WEST, DR JACOB Parrish Consulting Unavailable Nilesh RN, Kizzy Unavailable BALL, ROLAND E Primary Care Unavailable LESSA CISNEROS JAY, MIKE Referring Unava ilable FELTER LEIGH Philippe Attending Unavailable BALL, ROLAND E Primary Care Unavailable JAYANT, SOUTH Philippe Attending Unavailable BALL, ROLAND E Primary Care Unavailable BALL, ROLAND E Primary Care Unavailable AJYANT, SOUTH Philippe Referring Unavailable BALL, ROLAND E Primary Care Unavailable BALL, ROLAND E Primary Care Unavailable LESSA CISNEROS JAY, MIKE Referring Unava ilable BALL, ROLAND E Primary Care Unavailable JAYANT, SOUTH Philippe Referring Unavailable ANGELIAELDER BARAJAS Attending Unavailable BALL, ROLAND E Primary Care Unavailable JAYANT, SOUTH Philippe Referring Unavailable BALL, ROLAND E Primary Care Unavailable RACHELHENRY Attending Unavailable BALL, ROLAND E Primary Care Unavailable LAMBGURPREET ESTRADA Referring Unavailable JAYANT, SOUTH Philippe Attending Unavailable BALL, ROLAND E Primary Care Unavailable PEDRO RODARTE Referring Unavailable BALL, ROLAND E Primary Care Unavailable JAYANT, SOUTH Philippe Attending Unavailable JAYANT, SOUTH Philippe Admitting Unavailable BALL, ROLAND E [...] Unavailable BALL, ROLAND E Primary Care Unavailable JAYANT, SOUTH Philippe Referring Unavailable BALL, ROLAND E [...] physicia Propensity to adverse reactions 8 Comment:[employer] Other (6 sources) Allergies Reconciled Propensity to adverse reactions Unknown [employer] Other Medications Current Medications Medication Drug Class(es) Dates Sig (Normalized) Sig (Original) acetaminophen 325 mg / HYDROcodone bitartrate 5 mg oral tablet (8 sources) Opioid Agonist take 1-2 tablets by mouth every six hours as needed HYDROcodone-Aceta minophen 5-325 MG 1-2 tablet as needed Oral every 6 hrs for 7 days Active [id number] actuat albuterol 0.09 mg/actuat metered dose inhaler [...] one Acet 0.05-0.14 MG/DAY (10 sources) Start: apply 0.05-0.14 mg transdermal route once daily Estradiol-Norethin drone Acet 0.05-0.14 MG/DAY 1 patch to skin Transdermal Two times a Week Jul, Active Estroven (10 sources) Start: 018 Estroven Jul, Active fluticasone propionate 0.05 mg/actuat metered dose nasal spray (8 sources) Corticosteroid Start: 023 take 1 spray(s) nasal route once daily [...] source) Standardized Chemical Allergen Start: 023 End: formaldehyde, bulk, 37 % soln 240 mL [...] one(1) tablet d aily. Take by mouth. SCEK0-HOB-BED-FISH OIL-L.CASEI ORAL (20 sources) NZFZ9-VBB-LUK-FI SH OIL-L.CASEI ORAL Take by mouth once daily. 0 Active Comment on above: Take by mouth once d aily. 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 [...] ankle] Chronic Other and ill-defined heart disease (12 sources) Left cardiac ventricular dilatation; Translations: [Cardiomegaly] [...] left arm] Episodic Other connective tissue disease (19 sources) History of total hip arthroplasty; Translations: [Presence of right artificial hip joint] Chronic Other connective tissue disease (1 source) Presence of right artificial hip joint Chronic Other connective tissue disease (4 sources) Plantar fascial fibromatosis; Translations: [Plantar fascial fibromatosis] Episodic Other diseases of veins and lymphatics (18 sources) Peripheral venous insufficiency; Translations: [Venous insufficiency [...] caused by tuberculosis or sexually transmitted disease) (17 sources) Dilated cardiomyopathy; Translations: [Dilated cardiomyopathy] Chronic Pulmonary heart disease (16 sources) Secondary pulmonary hypertension; Translations: [Other secondary pulmonary hypertension] Onset: 08-29-2023 06-27-2023 Chronic Residual codes; unclassified (4 sources) Preventive procedure; Translations: [Encounter for other specified prophylactic measures] Episodic Thyroid disorders (11 sources) Autoimmune thyroiditis; Translations: [Autoimmune thyroiditis] Chronic [...] Range Facility CNOVon 09-29-2023 CNOV Office Visit (HOMERO ) ISABEL WADDELL ([id number]) 1960 F Date Time Provider Department 09/29/23 [...] Allergies) Date Reviewed: 09/29/2023 Reviewed by: Laura Griffith, RN - Fully [...] mg by mouth daily at bedtime. - VRVP6-KOJ-GJX-FISH OIL-L.CASEI ORAL Take by mouth once daily. [...] [D64.89] 09/02 (more content not included)... Normal [facility] ANES POSTPROC EVALon 023 ANES POSTPROC EVAL HNO ID: [id number] Author: Kobe Garcia MD Service: ? Author Type: Anesthesiologist Type: Anesthesia Postprocedure Evaluation Filed: 09/02/2023 10:38 AM Note Text: POST ANESTHESIA EVALUATION NOTE : 1960 Procedure Summary Date: 09/02/23 Room / Location: [address] [place] Anesthesia Start: 745 Anesthesia Stop: 925 Procedures: [...] September 02, 2023 TIME: 10:37 AM CSN: [id number] Normal [facility] ANES PRE-OPon 09-02-2023 ANES PRE-OP HNO ID: [id number] Author: Kobe Garcia MD Service: ? Author Type: Anesthesiologist Type: Anesthesia Preprocedure Evaluation Filed: 09/02/2023 8:30 AM Note Text: ANESTHESIOLOGY DAY OF SURGERY NOTE : 1960 Procedure Information Date/Time: 09/02/23729 Procedures: EXAM UNDER ANESTHESIA RECTAL (Anus) SIGMOIDOSCOPY FLEXIBLE (Colon Sigmoid) ANOSCOPY W/ CONTROL OF BLEEDING- Formalin treatment (Anus) Location: [facility]IN [facility] Surgeons: [place], Estimated body mass index is 23.73 kg/m? [...] and consent discussed: yes. Patient / Responsible Alliance Party agrees to proceed: yes Patient / Surrogate [...] 1,000 mg by mouth once daily. - VMTH3-FZS-DYD-FISH OIL-L.CASEI ORAL Take by mouth once daily. [...] on 06/27/2023 (more content not included)... Normal [facility] ANES PREOPon 09-02-2023 ANES PREOP HNO ID: [id number] Author: Kobe Garcia MD Service: Anesthesiology Author Type: Anesthesiologist Type: Anesthesia PreOp Filed: 09/02/2023 7:05 AM Note Text: Healthy except for FAP. Appropriately NPO, denies reflux, no history of anesthesia problems. Reviewed in fathers presence. MP1, no airway concerns, ASA2, Plan for GA with LMA. Has braces, tight , no loose teeth. Normal [facility] BRIEF OP NOTon 09-02-2023 BRIEF OP NOT HNO ID: [id number] Author: Milagro Sanchez MD Service: Colorectal Author Type: Physician Type: Brief Op Note Filed: 09/02/2023 8:57 AM Note Text: BRIEF OPERATIVE NOTE - COLORECTAL SURGERY Log ID: [id number] Surgery/Procedure Date: 09/02/2023 Incision/Procedure Start Time: 8:01 AM Incision Close/Procedure End Time: 8:51 AM Surgeon(s) and Dustless Operator(s): Surgeon(s) and Role: * [place] DO [...] DATE: September 02, 2023 TIME: 8:56 AM Normal [facility] CNDSon 09-02-2023 CNDS HNO ID: [id number] Author: Ricardo White PA-C Service: Colorectal Author Type: Physician Dustless Operator Type: Discharge Summary Filed: 09/02/2023 2:06 PM Note Text: Attestation signed by [place] S[place] DO at 09/02/2023 4:24 PM [place] DO, DAVID, [facility] Colorectal Surgery DISCHARGE SUMMARY PATIENT NAME: [...] see a follow up appointment in your [facility] in 4-5 business [address] Saba's office at [phone] to make an appointment. Transitions of Care [...] capsule Commonly (more content not included)... Normal [facility] Hematocrit Auto (Bld) [Volum e fraction]on 09-02-2023 Hematocrit (Bld) [Volume fraction] 27.4 % Low 36.0-46.0 [facility] Comment on above: Order Comment: Speci men Type: BLOOD SPECIMEN Ordering Facility: [facility] Address: [address] [id number] Performed By: #### 5 0190-8, 2276-02 #### [facility] CLIA [id number] [address] [place] [address] [place] Hgb Bld-mCncon 09-02-2023 Hemoglobin (Bld) [Mass/Vol] 7.5 g/dL Low 11.5-15.5 [facility] Comment on above: Order Comment: Speci men Type: BLOOD SPECIMEN Ordering Facility: [facility] Address: [address] [id number] Performed By: #### 5 0190-8, 2276-02 #### [facility] CLIA [id number] [address] [place] [address] [place] OPERATIVE NOon 09-02-2023 OPERATIVE NO HNO ID: [id number] Author: [place] S[place] DO Service: Colorectal Author Type: Physician Type: Operative Report Filed: 09/10/2023 7:14 AM Note Text: OPERATIVE REPORT PATIENT NAME: Isabel Waddell LOG ID: [id number] SURGERY DATE: 09/02/2023 INCISION/PROCEDURE START TIME: 8:01 AM INCISION CLOSE/PROCEDURE END TIME: 8:51 AM PREOPERATIVE DIAGNOSIS: Radiation proctitis, anemia, history of endometrial adenocarcinoma POSTOPERATIVE DIAGNOSIS: Radiation proctitis, anemia, history of endometrial adenocarcinoma OPERATION PERFORMED: Flexible sigmoidoscopy, exam under anesthesia, topical application of formalin to the rectum for treatment of radiation proctitis SURGEON: [place] DO ELECTRICAL DESIGN TECHNOLOGIST: Milagro Sanchez MD. no qualified residents or [...] Saba, DO, FACS, FASCRS Colorectal Surgery Normal [facility] TYPE + SCREENon 09-02-2023 ABO O Normal [facility] Comment on above: Order Comment: Speci men Type: BLOOD SPECIMEN Ordering Facility: [facility] Address: [address] [place], [place] [address] Performed By: #### 5 0190-8, 2276-4 #### [facility] CLIA [id number] [address] [facility] [place] [address] [place] HISTORICAL AB SCR STATUS Negative Normal [facility] Comment on above: Order Comment: Speci men Type: BLOOD SPECIMEN Ordering Facility: [facility] Address: [address] [address] Performed By: #### 5 0190-8, 2276-4 #### [facility] CLIA [id number] [address] [place] [address] [place] Rh Nom (Bld) Positive Normal [facility] Comment on above: Order Comment: Speci men Type: BLOOD SPECIMEN Ordering Facility: [facility] Address: [address] [place] [address] Performed By: #### 5 0190-8, 2275-4 #### [facility] CLIA [id number] [address] [place] [address] [place] TYPE AND SCREEN EXPIRATION 09/05/2023 23:59 Normal [facility] Comment on above: Order Comment: Speci men Type: BLOOD SPECIMEN Ordering Facility: [facility] Address: [address] [place] [address] Performed By: #### 5 0190-8, 2275-4 #### [facility] CLIA [id number] [address] [place] [address] [place] CBC W Auto Differential pane l (Bld)on 08-29-2023 Basophils (Bld) [#/Vol] 10*3/uL Normal <0.11 [facility] Comment on above: Order Comment: Speci men Type: BLOOD SPECIMENOrdering Facility: [facility] Address: [address] [place] [address] Performed By: #### 5 7021-8 ####[facility] [id number] [place] [address] [place] Basophils/100 WBC (Bld) 0.7 % Normal [facility] Comment on above: Order Comment: Speci men Type: BLOOD SPECIMENOrdering Facility: [facility] Address: [address] [place] [address] Performed By: #### 5 7021-8 ####[facility] [id number] [place] [address] [place] Differential cell count method Nom (Bld) Auto Normal [facility] Comment on above: Order Comment: Speci men Type: BLOOD SPECIMENOrdering Facility: [facility] Address: [address] [place] [address] Performed By: #### 5 7021-8 ####[facility] [id number] [place] [address] [place] Eosinophils (Bld) [#/Vol] 0.18 10*3/uL Normal <0.46 [facility] Comment on above: Order Comment: Speci men Type: BLOOD SPECIMENOrdering Facility: [facility] Address: [address] [place] [address] Performed By: #### 5 7021-8 ####[facility] [id number] [place] [address] [place] Eosinophils/100 WBC (Bld) 5.9 % Normal [facility] Comment on above: Order Comment: Speci men Type: BLOOD SPECIMENOrdering Facility: [facility] Address: [address] [place] [address] Performed By: #### 5 7021-8 ####[facility] [id number] [place] [address] [place] Erythrocyte distribution width (RBC) [Ratio] 22.0 % High 11.5-15.0 [facility] Comment on above: Order Comment: Speci men Type: BLOOD SPECIMENOrdering Facility: [facility] Address: [address] [place] [address] Performed By: #### 5 7021-8 ####[facility] [id number] [place] [address] [place] Hematocrit (Bld) [Volume fraction] 26.0 % Low 36.0-46.0 [facility] Comment on above: Order Comment: Speci men Type: BLOOD SPECIMENOrdering Facility: [facility] Address: [address] [place] [address] Performed By: #### 5 7021-8 ####[facility]IA [id number] [place] [address] [place] Hemoglobin (Bld) [Mass/Vol] 7.0 g/dL Low 11.5-15.5 [facility] Comment on above: Order Comment: Speci men Type: BLOOD SPECIMENOrdering Facility: [facility] Address: [address] [place] [address] Performed By: #### 5 7021-8 ####[facility] [id number] [place] [address] [place] Immature granulocytes (Bld) [#/Vol] 10*3/uL Normal <0.10 [facility] Comment on above: Order Comment: Speci men Type: BLOOD SPECIMENOrdering Facility: [facility] Address: [address] [place] [address] Performed By: #### 5 7021-8 ####[facility] [id number] [place] [address] [place] Immature granulocytes/100 WBC (Bld) 0.0 % Normal [facility] Comment on above: Order Comment: Speci men Type: BLOOD SPECIMENOrdering Facility: [facility] Address: [address] [place] [address] Performed By: #### 5 7021-8 ####[facility]IA [id number] [place] [address] [place] Lymphocytes (Bld) [#/Vol] 1.20 10*3/uL Normal 1.00-4.00 [facility] Comment on above: Order Comment: Speci men Type: BLOOD SPECIMENOrdering Facility: [facility] Address: [address] [place] [address] Performed By: #### 5 7021-8 ####[facility] [id number] [place] [address] [place] Lymphocytes/100 WBC (Bld) 39.1 % Normal [facility] Comment on above: Order Comment: Speci men Type: BLOOD SPECIMENOrdering Facility: [facility] Address: [address] [place] [address] Performed By: #### 5 7021-8 ####[facility]IA [id number] [place] [address] [place] MCH (RBC) [Entitic mass] 17.9 pg Low 26.0-34.0 [facility] Comment on above: Order Comment: Speci men Type: BLOOD SPECIMENOrdering Facility: [facility] Address: [address] [place] [address] Performed By: #### 5 7021-8 ####[facility]IA [id number] [place] [address] [place] MCHC (RBC) [Mass/Vol] 26.9 g/dL Low 30.5-36.0 [facility] Comment on above: Order Comment: Speci men Type: BLOOD SPECIMENOrdering Facility: [facility] Address: [address] [place] [address] Performed By: #### 5 7021-8 ####[facility]IA [id number] [place] [address] [place] MCV (RBC) [Entitic vol] 66.3 fL Low 80.0-100.0 [facility] Comment on above: Order Comment: Speci men Type: BLOOD SPECIMENOrdering Facility: [facility] Address: [address] [place] [address] Performed By: #### 5 7021-8 ####[facility] [id number] [place] [address] [place] Monocytes (Bld) [#/Vol] 0.40 10*3/uL Normal <0.87 [facility] Comment on above: Order Comment: Speci men Type: BLOOD SPECIMENOrdering Facility: [facility] Address: [address] [place] [address] Performed By: #### 5 7021-8 ####[facility] [id number] [place] [address] [place] Monocytes/100 WBC (Bld) 13.0 % Normal [facility] Comment on above: Order Comment: Speci men Type: BLOOD SPECIMENOrdering Facility: [facility] Address: [address] [place] [address] Performed By: #### 5 7021-8 ####[facility]IA [id number] [place] [address] [place] Neutrophils (Bld) [#/Vol] 1.27 10*3/uL Low 1.45-7.50 [facility] Comment on above: Order Comment: Speci men Type: BLOOD SPECIMENOrdering Facility: [facility] Address: [address] [place] [address] Performed By: #### 5 7021-8 ####[facility]IA [id number] [place] [address] [place] Neutrophils/100 WBC (Bld) 41.3 % Normal [facility] Comment on above: Order Comment: Speci men Type: BLOOD SPECIMENOrdering Facility: [facility] Address: [address] [place] [address] Performed By: #### 5 7021-8 ####[facility]IA [id number] [place] [address] [place] Nucleated RBC (Bld) [#/Vol] 10*3/uL Normal <0.01 [facility] Comment on above: Order Comment: Speci men Type: BLOOD SPECIMENOrdering Facility: [facility] Address: [address] [place] [address] Performed By: #### 5 7021-8 ####[facility]IA [id number] [place] [address] [place] Nucleated RBC/100 WBC (Bld) [Ratio] 0.0 /100 WBC Normal [facility] Comment on above: Order Comment: Speci men Type: BLOOD SPECIMENOrdering Facility: [facility] Address: [address] [place] [address] Performed By: #### 5 7021-8 ####[facility] [id number] [place] [address] [place] Platelet mean volume (Bld) [Entitic vol] 9.6 fL Normal 9.0-12.7 [facility] Comment on above: Order Comment: Speci men Type: BLOOD SPECIMENOrdering Facility: [facility] Address: [address] [place] [address] Performed By: #### 5 7021-8 ####[facility] [id number] [place] [address] [place] Platelets (Bld) [#/Vol] 266 10*3/uL Normal 150-400 [facility] Comment on above: Order Comment: Speci men Type: BLOOD SPECIMENOrdering Facility: [facility] Address: [address] [place] [address] Performed By: #### 5 7021-8 ####[facility] [id number] [place] [address] [place] RBC (Bld) [#/Vol] 3.92 10*6/uL Normal 3.90-5.20 [facility] Comment on above: Order Comment: Speci men Type: BLOOD SPECIMENOrdering Facility: [facility] Address: [address] [place] [address] Performed By: #### 5 7021-8 ####[facility] [id number] [place] [address] [place] WBC (Bld) [#/Vol] 3.07 10*3/uL Low 3.70-11.00 [facility] Comment on above: Order Comment: Speci men Type: BLOOD SPECIMENOrdering Facility: [facility] Address: [place] [address] Performed By: #### 5 7021-8 ####[facility] [id number] CARRI ROACHDESK [id number] [facility] CNOVon 08-29-2023 CNOV Office Visit (CORSMN ) ISABEL WADDELL ([id number]) 1960 F Date Time Provider Department 08/29/23 11:00 AM ELDER GALAN During your visit today, we recorded the following information about you: Temperature Pulse Blood pressure Weight 98 degrees 82/minute 163/78 66.7 kg Height 1.676 m Elder Galan APRN.CAR FILLER 08/31/2023 9:11 PM Signed COLON AND RECTAL [...] team about CBC once drawn. Elder Galan, BETTY.[facility] Pelvic Floor Colorectal Surgery Risk of morbidity, mortality and/or complications of treatment plan: high Referring Provider: SOUTH SABA [[id number]] Allergies As of Allen (more content not included)... Normal [facility] CNOV Office Visit (PMNA11 ) ISABEL WADDELL ([id number]) 1960 F Date Time Provider Department 08/29/23 10:00 AM HEIDI MENARD PMNA11 During your visit today, we recorded the following information about you: Temperature Pulse Respiration Blood pressure 98 degrees 82/minute 16/minute 157/77 Weight 66.7 kg Heidi Menard MD 08/29/2023 1:08 PM Signed Ms. Waddell is a 63 year old female who presents to the [facility] [place]. 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 Normal [facility] Comprehensive metabolic 2000 panelon 08-29-2023 Albumin [Mass/Vol] 3.9 g/dL Normal 3.9-4.9 [facility] Comment on above: Order Comment: Speci men Type: BLOOD SPECIMEN Ordering Facility[facility] Address: [address] Performed By: #### 5 0190-8, 2275-4 #### [facility] CLIA [id number] [address] [place] [address] [place] ALP [Catalytic activity/Vol] 164 U/L High 34-123 [facility] Comment on above: Order Comment: Speci men Type: BLOOD SPECIMEN Ordering [facility] Address: [address] Performed By: #### 5 0190-8, 2275-4 #### [facility] CLIA [id number] [address] [place] [address] [place] ALT [Catalytic activity/Vol] 45 U/L High 7-38 [facility] Comment on above: Order Comment: Speci men Type: BLOOD SPECIMEN Order[facility] Address: [address] Performed By: #### 5 0190-8, 2275-4 #### [facility] CLIA [id number] [address] [place] [address] [place] Anion gap [Moles/Vol] 10 mmol/L Normal 9-18 [facility] Comment on above: Order Comment: Speci men Type: BLOOD SPECIMEN Order[facility]: [facility] Address: [address] Performed By: #### 5 0190-8, 2275-4 #### [facility] CLIA [id number] [address] [place] [address] [place] AST [Catalytic activity/Vol] 48 U/L High 13-35 [facility] Comment on above: Order Comment: Speci men Type: BLOOD SPECIMEN Order[facility] Address: [address] Performed By: #### 5 0190-8, 2276-02 #### [facility] CLIA [id number] [address] [place] [address] [place] Bilirubin [Mass/Vol] 0.3 mg/dL Normal 0.2-1.3 [facility] Comment on above: Order Comment: Speci men Type: BLOOD SPECIMEN Order[facility] Facility[facility] Address: [address] [place], [place] [address] Performed By: #### 5 0190-8, 2276-02 #### [facility] CLIA [id number] [address] [place] [address] [place] Calcium [Mass/Vol] 9.5 mg/dL Normal 8.5-10.2 [facility] Comment on above: Order Comment: Speci men Type: BLOOD SPECIMEN Ordering Facility: [facility] Address: [address] [place] [address] Performed By: #### 5 0190-8, 2276-02 #### [facility] CLIA [id number] [address] [place] [address] [place] Chloride [Moles/Vol] 107 mmol/L High 97-105 [facility] Comment on above: Order Comment: Speci men Type: BLOOD SPECIMEN Ordering Facility: [facility] Address: [address] [place], [place] [address] Performed By: #### 5 0190-8, 2276-02 #### [facility] CLIA [id number] [address] [place] [address] [place] CO2 [Moles/Vol] 24 mmol/L Normal 22-30 [facility] Comment on above: Order Comment: Speci men Type: BLOOD SPECIMEN Ordering Facility: [facility] Address: [address] Performed By: #### 5 0190-8, 2275- #### [facility] CLIA [id number] [address] [place] [address] [place] [facility] Creatinine [Mass/Vol] 0.61 mg/dL Normal 0.58-0.96 [facility] Comment on above: Order Comment: Adonis mayo Type: BLOOD SPECIMEN Ordering Facility: [facility] Address: [address] [address] Performed By: #### 5 0190-8, 6-4 #### [facility] CLIA [id number] [address] [place] [address] Creatinine and Glomerular filtration rate.predicted panel (S/P/Bld) 101 mL/min/1.73m??? Normal >=60 [facility] Comment on above: Order Comment: Adonis mayo Type: BLOOD SPECIMEN Ordering Facility: [facility] Address: [address] [place] [address] Result Comment: Kae mated Glomerular Filtration Rate [...] actual GFR. Performed By: #### 5 0190-8, 6-4 #### [facility] CLIA [id number] [address] [place] [address] [place] Glucose [Mass/Vol] 94 mg/dL Normal 74-99 [facility] Comment on above: Order Comment: Adonis mayo Type: BLOOD SPECIMEN Ordering Facility: [facility] Address: [address] [place] [address] Result Comment: The [place] [employer] (ADA) provides guidance for cutoff [...] Standards of Medical Care in Diabetes 2016, [place] [employer]. Diabetes Care. 2016.39(Suppl 1). Performed By: #### 5 0190-8, 2275- #### [facility] CLIA [id number] [address] [place] [address] [place] Potassium [Moles/Vol] 4.5 mmol/L Normal 3.7-5.1 [facility] Comment on above: Order Comment: Speci men Type: BLOOD SPECIMEN Ordering Facility: [facility] Address: [address] [address] Performed By: #### 5 0190-8, 2276-02 #### [facility] CLIA [id number] [address] [place] [address] [place] Protein [Mass/Vol] 6.4 g/dL Normal 6.3-8.0 [facility] Comment on above: Order Comment: Speci men Type: BLOOD SPECIMEN Ordering Facility: [facility] Address: [address] Performed By: #### 5 0190-8, 2276-02 #### [facility] CLIA [id number] [address] [place] [address] [place] Sodium [Moles/Vol] 141 mmol/L Normal 136-144 [facility] Comment on above: Order Comment: Speci men Type: BLOOD SPECIMEN Ordering Facility: [facility] Address: [address] [place] [address] Performed By: #### 5 0190-8, 2276-02 #### [facility] CLIA [id number] [address] [id number] [place] Urea nitrogen [Mass/Vol] 13 mg/dL Normal 7-21 [facility] Comment on above: Order Comment: Speci men Type: BLOOD SPECIMEN Ordering Facility: [facility] Address: [address] [place] [address] Performed By: #### 5 0190-8, 2276-4 #### [facility] CLIA [id number] [address] [facility] [address] [place] [facility] ECG COMPLETEon 08-29-2023 ECG COMPLETE Ventricular Rate : 7 6 BPM Atrial Rate : 76 BPM P-R Interval : 194 ms QRS Duration : 82 ms Q-T Interval : 392 ms QTC Calculation(Bazett) : 441 ms Calculated P [place] : 22 degrees Calculated R [place] : 58 degrees Calculated T [place] : 43 degrees NORMAL SINUS RHYTHM POSSIBLE LEFT ATRIAL ENLARGEMENT LEFT VENTRICULAR HYPERTROPHY ABNORMAL ECG Confirmed by MING MITCHELL MD ([id number]) on 09/02/2023 9:46:08 PM NAME : ISABEL WADDELL PID : [id number] : 1960 Gender : Female Race : ORD : [id number] Procedure Date : Aug 29 2023 13:01:41 Edit Date : Sep 02 2023 21:46:10 Diagnosis: NORMAL SINUS RHYTHM POSSIBLE LEFT ATRIAL ENLARGEMENT LEFT VENTRICULAR HYPERTROPHY ABNORMAL ECG Confirmed by MING MITCHELL MD ([id number]) on 09/02/2023 9:46:08 PM Test Reason : Location : 119 : A17 A17 Overread By : MING MITCHELL MD Edited By : MING MITCHELL MD Referred By : [place] Acquired by : YASMIN AVILA [facility] ECHOon 08-29-2023 Echocardiography Echocardiography Report: Transthoracic Echo [facility] GUNNAR-2 Date of service: 08/29/2023 1:42:07 PM ASSURANCE MANAGER Ordering physician: MIKE THOMPSON Indication: Shortness of breath Technologist: Ashlee Mera [facility] Interpreting physician: Mikki Etienne MD PATIENT: Name: [...] * * Final * * * CC [employer] [facility] Image : [id number] Normal [facility] HISTORY PHYSICALon HISTORY PHYSICAL HNO ID: [id number] Author: Elder Galan APRN.CAR FILLER Service: ? Author Type: Nurse Practitioner Type: [...] team about CBC once drawn. Elder Galan APRN.CAR FILLER Pelvic Floor Colorectal Surgery Risk of morbidity, mortality and/or complications of treatment plan: high [facility] + SCREENon 08-29-2023 ABO group Nom (Bld) O [facility] Blood group antibody screen Ql Negative [facility] HIstorical Ab Scr Status Negative [facility] Rh Nom (Bld) Positive [facility] Type and Screen Expiration 09/01/2023 23:59 [facility] ABO O Normal [facility] Comment on above: Order Comment: Speci men Type: BLOOD SPECIMEN Ordering Facility: [facility] Address: [address] [place] [address] Performed By: #### 5 0190-8, 2275-4 #### [facility] CLIA [id number] [address] [place] [address] [place] HISTORICAL AB SCR STATUS Negative Normal [facility] Comment on above: Order Comment: Speci men Type: BLOOD SPECIMEN Ordering Facility: [facility] Address: [address] [place], [place] [address] Performed By: #### 5 0190-8, 2275-4 #### [facility] CLIA [id number] [address] [place] [address] [place] Rh Nom (Bld) Positive Normal [facility] Comment on above: Order Comment: Speci men Type: BLOOD SPECIMEN Ordering Facility: [facility] Address: [address] [place], [place] [address] Performed By: #### 5 0190-8, 2275-4 #### [facility] CLIA [id number] [address] [place] [address] [place] TYPE AND SCREEN EXPIRATION 09/01/2023 23:59 Normal [facility] Comment on above: Order Comment: Speci men Type: BLOOD SPECIMEN Ordering Facility: [facility] Address: [address] [place], [place] [address] Performed By: #### 5 0190-8, 2275-4 #### [facility] CLIA [id number] [address] [place] [address] [place] XR CHEST 2V [...] of the thoracic spine. IMPRESSION: See Result. Management Trainer: PSCB Transcribe Date/Time: Aug 29 2023 9:55A Dictated by : KRYSTIAN MULTANI MD This examination was interpreted and the report reviewed and electronically signed by: KRYSTIAN MULTANI MD on Aug 29 2023 9:57AM EST [id number] Normal [facility] CT CHEST WO IVCONon 08-22-20 CT CHEST WO IVCON * * *Final Report* * * DATE OF EXAM: Aug 22 2023 8:49AM [facility] 0541 - CT CHEST WO IVCON [...] wall is unremarkable. Upper abdomen: Prior cholecystectomy. Chlorine Operator (topogram) images: No additional findings. IMPRESSION: 1. No convincing findings of interstitial lung disease. There is excessive dynamic collapse of mainstem bronchi. 2. Unchanged scattered calcified granulomas. No suspicious lung nodules. Management Trainer: PSCB Transcribe Date/Time: Aug 22 2023 8:56A Dictated by : RICHARD LOVELACE MD This examination was interpreted and the report reviewed and electronically signed by: RICHARD LOVELACE MD on Aug 22 2023 9:01AM EST [id number] Normal [facility] Vaishnavi 07-22-2023 CNPN Telephone ([facility]) ISABEL WADDELL ([id number]) 1960 F Date Time Provider Department 07/22/23 [place] During your visit today, we recorded the following information about you: Divya Karimi 07/22/2023 3:18 PM Signed Isabel Waddell accepts [...] mg by mouth daily at bedtime. - ZBIU2-SDV-YMB-FISH OIL-L.CASEI ORAL Take by mouth once daily. [...] by GABY NICHOLS RN on 07/22/23 [facility] Telephone ([facility]) CKISABEL ([id number]) 1960 F Date Time Provider Department 07/22/23 [place] During your visit today, we recorded the following information about you: Enid Baker 07/22/2023 2:49 PM Signed [phone] Patient calling to reschedule her EUA. Allergies As of Date: 07/22/2023 (No Known Allergies) Date Reviewed: 07/04/2023 Reviewed by: Laura Griffith, NIKITA - Fully Assessed Reason for Visit: Patient [...] mg by mouth daily at bedtime. - JQUC6-IDQ-UCI-FISH OIL-L.CASEI ORAL Take by mouth once daily. [...] Status:Closed by ENID BAKER on 07/22/23 Normal [facility] Comprehensive metabolic 2000 panelon 07-05-2023 Albumin [Mass/Vol] 4.0 g/dL 3.9 - 4.9 g/dL [facility] ALP [Catalytic activity/Vol] 161 U/L High 34 - 123 U/L [facility] ALT [Catalytic activity/Vol] 47 U/L High 7 - 38 U/L [facility] Anion gap [Moles/Vol] 11 mmol/L 9 - 18 mmol/L [facility] AST [Catalytic activity/Vol] 41 U/L High 13 - 35 U/L [facility] Bilirubin [Mass/Vol] 0.3 mg/dL 0.2 - 1 .3 mg/dL [facility] Calcium [Mass/Vol] 9.5 mg/dL 8.5 - 10. 2 mg/dL [facility] Chloride [Moles/Vol] 105 mmol/L 97 - 10 5 mmol/L [facility] CO2 [Moles/Vol] 26 mmol/L 22 - 30 mmol/L [facility] Creatinine [Mass/Vol] 0.74 mg/dL 0.58 - 0.96 mg/dL [facility] Estimated Glomerular Filtration Rate 91 mL/min/1.73m >=60 mL/min/1.73m [facility] Glucose [Mass/Vol] 104 mg/dL High 74 - 99 mg/dL [facility] Potassium [Moles/Vol] 4.5 mmol/L 3.7 - 5.1 mmol/L [facility] Protein [Mass/Vol] 6.3 g/dL 6.3 - 8.0 g/dL [facility] Sodium [Moles/Vol] 142 mmol/L 136 - 144 mmol/L [facility] Urea nitrogen [Mass/Vol] 16 mg/dL 7 - 21 mg/dL [facility] CBC W Auto Differential pane l (Bld)on 07-04-2023 Basophils (Bld) [#/Vol] 0.03 10*3/uL Normal <0.11 [facility] Comment on above: Order Comment: Speci men Type: BLOOD SPECIMEN Ordering Facility: [facility] Address: [address] Performed By: #### 5 0190-8, 2276-02 #### [facility] CLIA [id number] [address] [place] [address] [place] Basophils/100 WBC (Bld) 0.9 % Normal [facility] Comment on above: Order Comment: Speci men Type: BLOOD SPECIMEN Ordering Facility: [facility] Address: [address] Performed By: #### 5 0190-8, 6- #### [facility] CLIA [id number] [address] [place] [address] [place] Differential cell count method Nom (Bld) Auto Normal [facility] Comment on above: Order Comment: Speci men Type: BLOOD SPECIMEN Ordering Facility: [facility] Address: [address] [place] [address] Performed By: #### 5 0190-8, 2275- #### [facility] CLIA [id number] [address] [place] [address] [place] Eosinophils (Bld) [#/Vol] 0.16 10*3/uL Normal <0.46 [facility] Comment on above: Order Comment: Speci men Type: BLOOD SPECIMEN Ordering Facility: [facility] Address: [address] [place] [address] Performed By: #### 5 0190-8, 2276-02 #### [facility] CLIA [id number] [address] [place] [address] [place] Eosinophils/100 WBC (Bld) 4.9 % Normal [facility] Comment on above: Order Comment: Speci men Type: BLOOD SPECIMEN Ordering Facility: [facility] Address: [address] [place] [address] Performed By: #### 5 0190-8, 2276-02 #### [facility] CLIA [id number] [address] [place] [address] [place] Erythrocyte distribution width (RBC) [Ratio] 19.9 % High 11.5-15.0 [facility] Comment on above: Order Comment: Speci men Type: BLOOD SPECIMEN Ordering Facility: [facility] Address: [address] [place], [place] [address] Performed By: #### 5 0190-8, 2276-02 #### [facility] CLIA [id number] [address] [place] [address] [place] Hematocrit (Bld) [Volume fraction] 25.1 % Low 36.0-46.0 [facility] Comment on above: Order Comment: Speci men Type: BLOOD SPECIMEN Ordering Facility: [facility] Address: [address] Performed By: #### 5 0190-8, 2275- #### [facility] CLIA [id number] [address] [place] [address] [place] Hemoglobin (Bld) [Mass/Vol] 7.1 g/dL Low 11.5-15.5 [facility] Comment on above: Order Comment: Speci men Type: BLOOD SPECIMEN Ordering Facility: [facility] Address: [address] Performed By: #### 5 0190-8, 2275- #### [facility] CLIA [id number] [address] [place] [address] [place] Immature granulocytes (Bld) [#/Vol] 10*3/uL Normal <0.10 [facility] Comment on above: Order Comment: Speci men Type: BLOOD SPECIMEN Ordering Facility: [facility] Address: [address] Performed By: #### 5 0190-8, 2276-02 #### [facility] CLIA [id number] [address] [place] [address] [place] Immature granulocytes/100 WBC (Bld) 0.3 % Normal [facility] Comment on above: Order Comment: Speci men Type: BLOOD SPECIMEN Ordering Facility: [facility] Address: [address] Performed By: #### 5 0190-8, 2276-02 #### [facility] CLIA [id number] [address] [place] [address] [place] Lymphocytes (Bld) [#/Vol] 1.12 10*3/uL Normal 1.00-4.00 [facility] Comment on above: Order Comment: Speci men Type: BLOOD SPECIMEN Ordering Facility: [facility] Address: [address] Performed By: #### 5 0190-8, 2276-02 #### [facility] CLIA [id number] [address] [place] [address] [place] Lymphocytes/100 WBC (Bld) 34.6 % Normal [facility] Comment on above: Order Comment: Speci men Type: BLOOD SPECIMEN Ordering Facility: [facility] Address: [address] [place], [place] [address] Performed By: #### 5 0190-8, 2276-02 #### [facility] CLIA [id number] [address] [place] [address] [place] MCH (RBC) [Entitic mass] 19.2 pg Low 26.0-34.0 [facility] Comment on above: Order Comment: Speci men Type: BLOOD SPECIMEN Ordering Facility: [facility] Address: [address] [place], [place] [address] Performed By: #### 5 0190-8, 2276-02 #### [facility] CLIA [id number] [address] [place] [address] [place] MCHC (RBC) [Mass/Vol] 28.3 g/dL Low 30.5-36.0 [facility] Comment on above: Order Comment: Speci men Type: BLOOD SPECIMEN Ordering Facility: [facility] Address: [address] [place], [place] [address] Performed By: #### 5 0190-8, 2276-02 #### [facility] CLIA [id number] [address] [place] [address] [place] MCV (RBC) [Entitic vol] 67.8 fL Low 80.0-100.0 [facility] Comment on above: Order Comment: Speci men Type: BLOOD SPECIMEN Ordering Facility: [facility] Address: [address] [place], [place] [address] Performed By: #### 5 0190-8, 2276-02 #### [facility] CLIA [id number] [address] [place] [address] [place] Monocytes (Bld) [#/Vol] 0.49 10*3/uL Normal <0.87 [facility] Comment on above: Order Comment: Speci men Type: BLOOD SPECIMEN Ordering Facility: [facility] Address: [address] [place] [address] Performed By: #### 5 0190-8, 2275- #### [facility] CLIA [id number] [address] [place] [address] [place] Monocytes/100 WBC (Bld) 15.1 % Normal [facility] Comment on above: Order Comment: Speci men Type: BLOOD SPECIMEN Ordering Facility: [facility] Address: [address] [place] [address] Performed By: #### 5 0190-8, 2276-02 #### [facility] CLIA [id number] [address] [place] [address] [place] Neutrophils (Bld) [#/Vol] 1.43 10*3/uL Low 1.45-7.50 [facility] Comment on above: Order Comment: Speci men Type: BLOOD SPECIMEN Ordering Facility: [facility] Address: [address] [place], [place] [address] Performed By: #### 5 0190-8, 2276-02 #### [facility] CLIA [id number] [address] [place] [address] [place] Neutrophils/100 WBC (Bld) 44.2 % Normal [facility] Comment on above: Order Comment: Speci men Type: BLOOD SPECIMEN Ordering Facility: [facility] Address: [address] [place], [place] [address] Performed By: #### 5 0190-8, 2275- #### [facility] CLIA [id number] [address] [place] [address] [place] Nucleated RBC (Bld) [#/Vol] 10*3/uL Normal <0.01 [facility] Comment on above: Order Comment: Speci men Type: BLOOD SPECIMEN Ordering Facility: [facility] Address: [address] [place] [address] Performed By: #### 5 0190-8, 2276-02 #### [facility] CLIA [id number] [address] [place] [address] [place] Nucleated RBC/100 WBC (Bld) [Ratio] 0.0 /100 WBC Normal [facility] Comment on above: Order Comment: Speci men Type: BLOOD SPECIMEN Ordering Facility: [facility] Address: [address] [place], [place] [address] Performed By: #### 5 0190-8, 2276-02 #### [facility] CLIA [id number] [address] [place] [address] [place] Platelet mean volume (Bld) [Entitic vol] 9.8 fL Normal 9.0-12.7 [facility] Comment on above: Order Comment: Speci men Type: BLOOD SPECIMEN Ordering Facility: [facility] Address: [address] [place], [place] [address] Performed By: #### 5 0190-8, 2276-02 #### [facility] CLIA [id number] [address] [place] [address] [place] Platelets (Bld) [#/Vol] 304 10*3/uL Normal 150-400 [facility] Comment on above: Order Comment: Speci men Type: BLOOD SPECIMEN Ordering Facility: [facility] Address: [address] [place] [address] Performed By: #### 5 0190-8, 2276-02 #### [facility] CLIA [id number] [address] [place] [address] [place] RBC (Bld) [#/Vol] 3.70 10*6/uL Low 3.90-5.20 [facility] Comment on above: Order Comment: Speci men Type: BLOOD SPECIMEN Ordering Facility: [facility] Address: [address] [address] Performed By: #### 5 0190-8, 2275- #### [facility] CLIA [id number] [address] [place] [address] [place] WBC (Bld) [#/Vol] 3.24 10*3/uL Low 3.70-11.00 [facility] Comment on above: Order Comment: Speci men Type: BLOOD SPECIMEN Ordering Facility: [facility] Address: [address] [address] Performed By: #### 5 0190-8, 2276-02 #### [facility] CLIA [id number] [address] [place] [address] [place] Basophils (Bld) [#/Vol] 0.03 10*3/uL <0.11 k/uL [facility] Basophils/100 WBC (Bld) 0.9 % [facility] Differential cell count method Nom (Bld) Auto [facility] Eosinophils (Bld) [#/Vol] 0.16 10*3/uL <0.46 k/uL [facility] Eosinophils/100 WBC (Bld) 4.9 % [facility] Erythrocyte distribution width (RBC) [Ratio] 19.9 % High 11.5 - 15.0 % [facility] Hematocrit (Bld) [Volume fraction] 25.1 % Low 36.0 - 46.0 % [facility] Hemoglobin (Bld) [Mass/Vol] 7.1 g/dL Low 11.5 - 15.5 g/dL [facility] Immature granulocytes (Bld) [#/Vol] <0.10 k/uL [facility] Immature granulocytes/100 WBC (Bld) 0.3 % [facility] Lymphocytes (Bld) [#/Vol] 1.12 10*3/uL 1.00 - 4.00 k/uL [facility] Lymphocytes/100 WBC (Bld) 34.6 % [facility] MCH (RBC) [Entitic mass] 19.2 pg Low 26.0 - 34.0 pg [facility] MCHC (RBC) [Mass/Vol] 28.3 g/dL Low 30.5 - 36.0 g/dL [facility] MCV (RBC) [Entitic vol] 67.8 fL Low 80.0 - 100.0 fL [facility] Monocytes (Bld) [#/Vol] 0.49 10*3/uL <0.87 k/uL [facility] Monocytes/100 WBC (Bld) 15.1 % [facility] Neutrophils (Bld) [#/Vol] 1.43 10*3/uL Low 1.45 - 7.50 k/uL [facility] Neutrophils/100 WBC (Bld) 44.2 % [facility] Nucleated RBC (Bld) [#/Vol] <0.01 k/uL [facility] Nucleated RBC/100 WBC (Bld) [Ratio] 0.0 /100 WBC [facility] Platelet mean volume (Bld) [Entitic vol] 9.8 fL 9.0 - 12.7 fL [facility] Platelets (Bld) [#/Vol] 304 10*3/uL 150 - 400 k/uL [facility] RBC (Bld) [#/Vol] 3.70 10*6/uL Low 3.90 - 5.2 0 m/uL [facility] WBC (Bld) [#/Vol] 3.24 10*3/uL Low 3.70 - 11. 00 k/uL [facility] CNOVon 07-04-2023 CNOV Office Visit (CORREJI ) ISABEL WADDELL ([id number]) 1960 F Date Time Provider Department 07/04/23 [...] regular bowel movements. 03/05/23 Juan Manuel Medina, CAR FILLER: Isabel Waddell is a 62 year old [...] 2016 Arthroscopy, knee BREAST SURGERY HX Right 1984 breast cysts COLONOSCOPY 2003 COLONOSCOPY SCREENING 09/2022 [...] 150 mg by mouth daily at bedtime. DXPX0-COD-WII-FISH OIL-L.CASEI ORAL Take by mouth once daily. Lactobac no.41/Bifidobact no.7 (PROBIOTIC (more content not included)... Normal [facility] metabolic 2000 panelon 07-04-2023 Albumin [Mass/Vol] 4.0 g/dL Normal 3.9-4.9 [facility] Comment on above: Order Comment: Speci men Type: BLOOD SPECIMEN Ordering Facility: [facility] Address: [address] Performed By: #### 2 4323-8 #### [facility] CLIA [id number] [address] [place] [address] [place] ALP [Catalytic activity/Vol] 161 U/L High 34-123 [facility] Comment on above: Order Comment: Speci men Type: BLOOD SPECIMEN Ordering Facility: [facility] Address: [address] Performed By: #### 2 4323-8 #### [facility] CLIA [id number] [address] [place] [address] [place] ALT [Catalytic activity/Vol] 47 U/L High 7-38 [facility] Comment on above: Order Comment: Speci men Type: BLOOD SPECIMEN Ordering Facility: [facility] Address: [address] Performed By: #### 2 4323-8 #### [facility] CLIA [id number] [address] [place] [address] [place] Anion gap [Moles/Vol] 11 mmol/L Normal 9-18 [facility] Comment on above: Order Comment: Speci men Type: BLOOD SPECIMEN Ordering Facility: [facility] Address: [address] Performed By: #### 2 4323-8 #### [facility] CLIA [id number] [address] [place] [address] [place] AST [Catalytic activity/Vol] 41 U/L High 13-35 [facility] Comment on above: Order Comment: Speci men Type: BLOOD SPECIMEN Ordering Facility: [facility] Address: [address] Performed By: #### 2 4323-8 #### [facility] CLIA [id number] [address] [place] [address] [place] Bilirubin [Mass/Vol] 0.3 mg/dL Normal 0.2-1.3 [facility] Comment on above: Order Comment: Speci men Type: BLOOD SPECIMEN Ordering Facility: [facility] Address: [address] [place], [place] [address] Performed By: #### 2 4323-8 #### [facility] CLIA [id number] [address] [place] [address] [place] Calcium [Mass/Vol] 9.5 mg/dL Normal 8.5-10.2 [facility] Comment on above: Order Comment: Speci men Type: BLOOD SPECIMEN Ordering Facility: [facility] Address: [address] [place], [place] [address] Performed By: #### 2 4323-8 #### [facility] CLIA [id number] [address] [place] [address] [place] Chloride [Moles/Vol] 105 mmol/L Normal 97-105 [facility] Comment on above: Order Comment: Speci men Type: BLOOD SPECIMEN Ordering Facility: [facility] Address: [address] [place], [place] [address] Performed By: #### 2 4323-8 #### [facility] CLIA [id number] [address] [place] [address] [place] CO2 [Moles/Vol] 26 mmol/L Normal 22-30 [facility] Comment on above: Order Comment: Speci men Type: BLOOD SPECIMEN Ordering Facility: [facility] Address: [address] [place] [address] Performed By: #### 2 4323-8 #### [facility] CLIA [id number] [address] [place] [address] [place] Creatinine [Mass/Vol] 0.74 mg/dL Normal 0.58-0.96 [facility] Comment on above: Order Comment: Adonis mayo Type: BLOOD SPECIMEN Ordering Facility: [facility] Address: [place] [address] Performed By: #### 2 4323-8 #### [facility] CLIA [id number] [address] [place] [address] [place] Creatinine and Glomerular filtration rate.predicted panel (S/P/Bld) 91 mL/min/1.73m??? Normal >=60 [facility] Comment on above: Order Comment: Adonis mayo Type: BLOOD SPECIMEN Ordering Facility: [facility] Address: [address] [place] [address] Result Comment: Kae mated Glomerular Filtration Rate [...] GFR. Performed By: #### 2 4323-8 #### [facility] CLIA [id number] [address] [place] [address] [place] Glucose [Mass/Vol] 104 mg/dL High 74-99 [facility] Comment on above: Order Comment: Adonis mayo Type: BLOOD SPECIMEN Ordering Facility: [facility] Address: [place] [place] [address] Result Comment: The [place] Diabetes Association (ADA) provides guidance for cutoff [...] Standards of Medical Care in Diabetes 2016, [place] [employer]. Diabetes Care. 2016.39(Suppl 1). Performed By: #### 2 4323-8 #### [facility] CLIA [id number] [address] [place] [address] [place] Potassium [Moles/Vol] 4.5 mmol/L Normal 3.7-5.1 [facility] Comment on above: Order Comment: Speci men Type: BLOOD SPECIMEN Ordering Facility: [facility] Address: [address] Performed By: #### 2 4323-8 #### [facility] CLIA [id number] [facility] [place] [address] [place] Protein [Mass/Vol] 6.3 g/dL Normal 6.3-8.0 [facility] Comment on above: Order Comment: Speci men Type: BLOOD SPECIMEN Ordering Facility: [facility] Address: [address] Performed By: #### 2 4323-8 #### [facility] CLIA [id number] [address] [place] [address] [place] Sodium [Moles/Vol] 142 mmol/L Normal 136-144 [facility] Comment on above: Order Comment: Speci men Type: BLOOD SPECIMEN Ordering Facility: [facility] Address: [address] Performed By: #### 2 4323-8 #### [facility] CLIA [id number] [address] [place] [address] [place] Urea nitrogen [Mass/Vol] 16 mg/dL Normal 7-21 [facility] Comment on above: Order Comment: Speci men Type: BLOOD SPECIMEN Ordering Facility: [facility] Address: [address] [place] [address] Performed By: #### 2 4323-8 #### [facility] CLIA [id number] [address] [place] [address] [place] HISTORY PHYSICALon 3 HISTORY PHYSICAL HNO ID: [id number] Author: [place], DO Service: ? Author [...] reports regular bowel movements. 03/05/23 Juan Manuel Medina CAR FILLER: Isabel Waddell is a 62 year old [...] cysts COLONOSCOPY 2002 COLONOSCOPY SCREENING 09/2022 DILATION AND CURETTAGE DXAND/THER [...] 150 mg by mouth daily at bedtime. XGHD9-MBH-EOO-FISH OIL-L.CASEI ORAL Take by mouth once daily. Lactobac no.41/Bifidobact no.7 (PROBIOTIC-10 ORAL) Take by mouth once daily. MULTIVITAMIN TAB Take one(1) tablet daily. 0 B COMPLEX VITAMINS CAP Take one(1) capsule daily. 0 CALCIUM CARBONATE-VIT D3-MINERALS 600 MG-400 UNIT TAB Take 1 tablet by mouth twice daily. 0 Current Facility-Administered Medications Medication (more content not included)... Normal [facility] CNOVon 06-27-2023 CNOV Office Visit (PMNA11 ) CKISABEL L ([id number]) 1960 F Date Time Provider Department 06/27/23 10:30 AM HEIDI MENARD PMNA11 During your visit today, we recorded the following information about you: Temperature Pulse Respiration Blood pressure 97.4 degrees 70/minute 16/minute 141/76 Weight 69.4 kg Heidi Menard MD 06/27/2023 11:47 AM Addendum Ms. Waddell is a 63 year old female who presents to the [facility] [place]. Consultation requested by Self. 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 Silica: No significant exposure. [place]: No significant exposure. Organic HP antigen: No [...] and de-a (more content not included)... Normal [facility] HEMOGLOBINon 03-21-2023 Hemoglobin (Bld) [Mass/Vol] 9.1 g/dL Critically low 12.0-16.[address] [facility] Comment on above: Performed By: #### H GB ####[facility] [address] [place], [place] [address]Re. Cheryl Monzon XR CHEST 2 Von 03-10-2023 [...] by: HENRY LOCK Date: 2023-03-10 13:57 Normal [facility] CNOVon 03-05-2023 CNOV Office Visit (GASTLN ) ISABEL WADDELL ([id number]) 1960 F Date Time Provider Department 03/05/23 [...] Abs Lymph 1.00 - 4.00 k/uL 1.31 Dickenson% % 11.1 Abs Dickenson <0.87 k/uL 0.50 Eosin% % 3.1 Abs [...] SCOPE 1982 SHOULDER SURGERY HX Bilateral ~2014 FAMILY HISTORY Problem Relation Age of Onset [...] or Indwelling (more content not included)... Normal [facility] HISTORY PHYSICALon 3 HISTORY PHYSICAL HNO ID: [id number] Author: Juan Manuel Medina APRN.CAR FILLER Service: ? Author Type: Nurse Practitioner Type: [...] Abs Lymph 1.00 - 4.00 k/uL 1.31 Dickenson% % 11.1 Abs Dickenson <0.87 k/uL 0.50 Eosin% % 3.1 Abs [...] thumb socket REMOVE PITUITARY TUMOR W/ SCOPE 1981 SHOULDER SURGERY HX Bilateral ~2012, 2014 FAMILY [...] mouth daily (more content not included)... Normal [facility] Covid-19 PCR ([facility]on SARS-CoV-2 (COVID-19) RNA ANGELA+probe Ql (Unsp spec) Not detected Normal NOT DETECTED [facility] Comment on above: Result Comment: When [...] for this test is supported by the [place] of Health and Human Service's declaration that [...] used). Performed By: #### C VDTBH #### [facility] [address] [place] [address] Dr. Cheryl Monzon INFLUENZA A AND B AGon 01-20 [facility] SEE BELOW Normal [facility] Comment on above: Result Comment: Nega tive for Flu A protein angiten. Infection due to Flu A cannot be ruled out. Flu A angiten in the sample may be below the detection limit of the test. Performed By: #### I NFLUAB #### [facility] [address] [place] [address] Dr. Cheryl Mon[facility] SEE BELOW Normal [facility] Comment on above: Result Comment: Nega tive for Flu B protein antigen. Infection due to Flu B cannot be ruled out. Flu B antigen in the sample may be below the detection limit of the test. Performed By: #### I NFLUAB #### [facility] [address] [place] [address] Dr. Cheryl Monzon INFLUENZA A AG Negative Normal NEGATIVE SEE COMMENT [facility] Comment on above: Performed By: #### I NFLUAB #### [facility] [address] [address] [address] Cheryl Monzon INFLUENZA B AG Negative Normal NEGATIVE SEE COMMENT [facility] Comment on above: Performed By: #### I NFLUAB #### [facility] [address] [address] [address] Cheryl oMnzon FERRITIN BLDon 01-04-2023 Ferritin [Mass/Vol] 14.2 ng/mL Low 14.7 - 2 05.1 ng/mL [facility] Iron and Iron binding capaci ty panelon 01-04-2023 Iron [Mass/Vol] 77 ug/dL 41 - 186 ug/dL [facility] Iron binding capacity [Mass/Vol] 382 ug/dL 232 - 386 ug/dL [facility] Iron/TIBC [Molar ratio] 20.2 % 15.0 - 57.0 % [facility] CBC W Auto Differential pane l (Bld)on 01-03-2023 Basophils (Bld) [#/Vol] 10*3/uL Normal <0.11 [facility] Comment on above: Order Comment: Speci men Type: BLOOD SPECIMENOrdering Facility: [facility] Address: [address] [place] [address] Performed By: #### 5 7021-8 ####[facility] [id number] [place] [address] [place] Basophils/100 WBC (Bld) 0.4 % Normal [facility] Comment on above: Order Comment: Speci men Type: BLOOD SPECIMENOrdering Facility: [facility] Address: [address] [place] [address] Performed By: #### 5 7021-8 ####[facility] [id number] [place] [address] [place] Differential cell count method Nom (Bld) Auto Normal [facility] Comment on above: Order Comment: Speci men Type: BLOOD SPECIMENOrdering Facility: [facility] Address: [address] Performed By: #### 5 7021-8 ####[facility] [id number] [place] [address] [place] Eosinophils (Bld) [#/Vol] 0.14 10*3/uL Normal <0.46 [facility] Comment on above: Order Comment: Speci men Type: BLOOD SPECIMENOrdering Facility: [facility] Address: [address] [place] [address] Performed By: #### 5 7021-8 ####[facility] [id number] [place] [address] [place] Eosinophils/100 WBC (Bld) 3.1 % Normal [facility] Comment on above: Order Comment: Speci men Type: BLOOD SPECIMENOrdering Facility: [facility] Address: [address] [place], [place] [address] Performed By: #### 5 7021-8 ####[facility] [id number] [place] [address] [place] Erythrocyte distribution width (RBC) [Ratio] 13.0 % Normal 11.5-15.0 [facility] Comment on above: Order Comment: Speci men Type: BLOOD SPECIMENOrdering Facility: [facility] Address: [address] [place], [place] [address] Performed By: #### 5 7021-8 ####[facility] [id number] [address] [place] Hematocrit (Bld) [Volume fraction] 35.4 % Low 36.0-46.0 [facility] Comment on above: Order Comment: Speci men Type: BLOOD SPECIMENOrdering Facility: [facility] Address: [address] Performed By: #### 5 7021-8 ####[facility] [id number] [place] [address] [place] Hemoglobin (Bld) [Mass/Vol] 11.5 g/dL Normal 11.5-15.5 [facility] Comment on above: Order Comment: Speci men Type: BLOOD SPECIMENOrdering Facility: [facility] Address: [address] [place] [address] Performed By: #### 5 7021-8 ####[facility] [id number] [place] [address] [place] Immature granulocytes (Bld) [#/Vol] 10*3/uL Normal <0.10 [facility] Comment on above: Order Comment: Speci men Type: BLOOD SPECIMENOrdering Facility: [facility] Address: [address] [place] [address] Performed By: #### 5 7021-8 ####[facility] [id number] [address] [place] Immature granulocytes/100 WBC (Bld) 0.2 % Normal [facility] Comment on above: Order Comment: Speci men Type: BLOOD SPECIMENOrdering Facility: [facility] Address: [address] [place] [address] Performed By: #### 5 7021-8 ####[facility] [id number] [place] [address] [place] Lymphocytes (Bld) [#/Vol] 1.31 10*3/uL Normal 1.00-4.00 [facility] Comment on above: Order Comment: Speci men Type: BLOOD SPECIMENOrdering Facility: [facility] Address: [address] [place], [place] [address] Performed By: #### 5 7021-8 ####[facility] [id number] [place] [address] [place] Lymphocytes/100 WBC (Bld) 29.0 % Normal [facility] Comment on above: Order Comment: Speci men Type: BLOOD SPECIMENOrdering Facility: [facility] Address: [address] [place] [address] Performed By: #### 5 7021-8 ####[facility] [id number] [address] MCH (RBC) [Entitic mass] 30.0 pg Normal 26.0-34.0 [facility] Comment on above: Order Comment: Speci men Type: BLOOD SPECIMENOrdering Facility: [facility] Address: [address] Performed By: #### 5 7021-8 ####[facility] [id number] [address] [place] MCHC (RBC) [Mass/Vol] 32.5 g/dL Normal 30.5-36.0 [facility] Comment on above: Order Comment: Speci men Type: BLOOD SPECIMENOrdering Facility: [facility] Address: [address] Performed By: #### 5 7021-8 ####[facility] [id number] [address] [place] MCV (RBC) [Entitic vol] 92.4 fL Normal 80.0-100.0 [facility] Comment on above: Order Comment: Speci men Type: BLOOD SPECIMENOrdering Facility: [facility] Address: [address] [place], [place] [address] Performed By: #### 5 7021-8 ####[facility] [id number] [place] [address] [place] Monocytes (Bld) [#/Vol] 0.50 10*3/uL Normal <0.87 [facility] Comment on above: Order Comment: Speci men Type: BLOOD SPECIMENOrdering Facility: [facility] Address: [address] [place], [place] [address] Performed By: #### 5 7021-8 ####[facility]CLIA [id number] [place] [address] [place] Monocytes/100 WBC (Bld) 11.1 % Normal [facility] Comment on above: Order Comment: Speci men Type: BLOOD SPECIMENOrdering Facility: [facility] Address: [address] [place] [address] Performed By: #### 5 7021-8 ####[facility]CLIA [id number] [place] [address] [place] Neutrophils (Bld) [#/Vol] 2.53 10*3/uL Normal 1.45-7.50 [facility] Comment on above: Order Comment: Speci men Type: BLOOD SPECIMENOrdering Facility: [facility] Address: [address] [place] [address] Performed By: #### 5 7021-8 ####[facility]CLIA [id number] [place] [address] [place] Neutrophils/100 WBC (Bld) 56.2 % Normal [facility] Comment on above: Order Comment: Speci men Type: BLOOD SPECIMENOrdering Facility: [facility] Address: [address] [place], [place] [address] Performed By: #### 5 7021-8 ####[facility]CLIA [id number] [place] [address] [place] Nucleated RBC (Bld) [#/Vol] 10*3/uL Normal <0.01 [facility] Comment on above: Order Comment: Speci men Type: BLOOD SPECIMENOrdering Facility: [facility] Address: [address] [place] [address] Performed By: #### 5 7021-8 ####[facility]CLIA [id number] [place] [address] [place] Nucleated RBC/100 WBC (Bld) [Ratio] 0.0 /100 WBC Normal [facility] Comment on above: Order Comment: Speci men Type: BLOOD SPECIMENOrdering Facility: [facility] Address: [address] [place], [place] [address] Performed By: #### 5 7021-8 ####[facility]CLIA [id number] [place] [address] [place] Platelet mean volume (Bld) [Entitic vol] 9.9 fL Normal 9.0-12.7 [facility] Comment on above: Order Comment: Speci men Type: BLOOD SPECIMENOrdering Facility: [facility] Address: [address] [place], [place] [address] Performed By: #### 5 7021-8 ####[facility]CLIA [id number] [place] [address] [place] Platelets (Bld) [#/Vol] 235 10*3/uL Normal 150-400 [facility] Comment on above: Order Comment: Speci men Type: BLOOD SPECIMENOrdering Facility: [facility] Address: [address] [place], [place] [address] Performed By: #### 5 7021-8 ####[facility]IA [id number] [place] [address] [place] RBC (Bld) [#/Vol] 3.83 10*6/uL Low 3.90-5.20 [facility] Comment on above: Order Comment: Speci men Type: BLOOD SPECIMENOrdering Facility: [facility] Address: [address] [place], [place] [address] Performed By: #### 5 7021-8 ####[facility]CLIA [id number] [place] [address] [place] WBC (Bld) [#/Vol] 4.51 10*3/uL Normal 3.70-11.00 [facility] Comment on above: Order Comment: Speci men Type: BLOOD SPECIMENOrdering Facility: [facility] Address: [facility] [place] [id number] Performed By: #### 5 7021-8 ####[facility]CLIA [id number] [place] [address] [place] Basophils (Bld) [#/Vol] <0.11 k/uL [facility] Basophils/100 WBC (Bld) 0.4 % [facility] Differential cell count method Nom (Bld) Auto [facility] Eosinophils (Bld) [#/Vol] 0.14 10*3/uL <0.46 k/uL [facility] Eosinophils/100 WBC (Bld) 3.1 % [facility] Erythrocyte distribution width (RBC) [Ratio] 13.0 % 11.5 - 15.0 % [facility] Hematocrit (Bld) [Volume fraction] 35.4 % Low 36.0 - 46.0 % [facility] Hemoglobin (Bld) [Mass/Vol] 11.5 g/dL 11.5 - 15.5 g/dL [facility] Immature granulocytes (Bld) [#/Vol] <0.10 k/uL [facility] Immature granulocytes/100 WBC (Bld) 0.2 % [facility] Lymphocytes (Bld) [#/Vol] 1.31 10*3/uL 1.00 - 4.00 k/uL [facility] Lymphocytes/100 WBC (Bld) 29.0 % [facility] MCH (RBC) [Entitic mass] 30.0 pg 26.0 - 34.0 pg [facility] MCHC (RBC) [Mass/Vol] 32.5 g/dL 30.5 - 36.0 g/dL [facility] MCV (RBC) [Entitic vol] 92.4 fL 80.0 - 100.0 fL [facility] Monocytes (Bld) [#/Vol] 0.50 10*3/uL <0.87 k/uL [facility] Monocytes/100 WBC (Bld) 11.1 % [facility] Neutrophils (Bld) [#/Vol] 2.53 10*3/uL 1.45 - 7.50 k/uL [facility] Neutrophils/100 WBC (Bld) 56.2 % [facility] Nucleated RBC (Bld) [#/Vol] <0.01 k/uL [facility] Nucleated RBC/100 WBC (Bld) [Ratio] 0.0 /100 WBC [facility] Platelet mean volume (Bld) [Entitic vol] 9.9 fL 9.0 - 12.7 fL [facility] Platelets (Bld) [#/Vol] 235 10*3/uL 150 - 400 k/uL [facility] RBC (Bld) [#/Vol] 3.83 10*6/uL Low 3.90 - 5.2 0 m/uL [facility] WBC (Bld) [#/Vol] 4.51 10*3/uL 3.70 - 11. 00 k/uL [facility] CNOVSPon 01-03-2023 CNOVSP Visit (SP) Office (BHAVNA) ISABEL WADDELL ([id number]) 1960 F Date Time Provider Department 01/03/23 3:20 PM HENRY RAMOS During your visit today, we recorded the following information about you: Temperature Pulse Blood pressure Weight 97.8 degrees 95/minute 141/87 71.2 kg Height 1.676 m Henry Ramos MD 01/12/2023 11:27 PM Signed Gynecologic Oncology [facility] Follow up visit Date of service: [...] differentiation, FIGO grade 2. Neg LVSI, 13% [place] pT1a (IA): Tumor limited to endometrium or invades less than 1/2 of the myometrium 05/25/2021 Vaginal biopsy Vagina, biopsy - Consistent with endometrioid adenocarcinoma (see comment). GZ/ka 05/28/2021 COMMENT The tumor cells are diffusely and strongly positive for immunohistochemical stain for [place] 8, supporting the above diagnosis. The patient [...] Right 1983 breast cysts COLONOSCOPY 2003 DILATION AND CURETTAGE [...] ORAL T (more content not included)... Normal [facility] Ferritin SerPl-mCncon 2022 Ferritin [Mass/Vol] 14.2 ng/mL Low 14.7-205.1 [facility] Comment on above: Order Comment: Adonis mayo Type: BLOOD SPECIMEN [facility] Address: [address] [place] [address] Performed By: #### 5 0190-8, 2276-4 #### [facility] CLIA [id number] [address] [place] [address] [place] Iron and Iron binding capaci ty panelon 01-03-2023 Iron [Mass/Vol] 77 ug/dL Normal 41-186 [facility] Comment on above: Order Comment: Adonis mayo Type: BLOOD SPECIMEN [facility] Address: [address] [place] [address] Performed By: #### 5 0190-8, 2276-4 #### [facility] CLIA [id number] [address] STATES OF [facility] Iron binding capacity [Mass/Vol] 382 ug/dL Normal 232-386 [facility] Comment on above: Order Comment: Speci men Type: BLOOD SPECIMEN [facility] Address: [address] [place] [address] Performed By: #### 5 0190-8, 2276-4 #### [facility] CLIA [id number] [address] Iron/TIBC [Molar ratio] 20.2 % Normal 15.0-57.0 [facility] Comment on above: Order Comment: Speci men Type: BLOOD SPECIMEN [facility] Address: [address] [place] [address] Performed By: #### 5 0190-8, 2276-4 #### [facility] CLIA [id number] [address] [place] [address] CNPKlaudia 12-25-2022 CNPN Telephone (BHAVNA) ISABEL WADDELL ([id number]) 1960 F Date Time Provider Department 12/25/22 ARETHA PENA During your visit today, we recorded the following information about you: Aretha Pena RN 12/25/2022 2:19 PM Signed ----- Message from [employer] sent at 12/25/2022 12:04 PM EST ----- Regarding: Rachel Patient bleeding and clotting almost daily since Colonoscopy. September was the Colonoscopy. Concerned and would like to know if she should schedule an appointment. [phone] Aretha Pena RN 12/25/2022 2:24 PM Signed [...] mg by mouth daily at bedtime. - [id number]-QXG-FISH OIL-L.CASEI ORAL Take by mouth once daily. [...] Status:Closed by ARETHA PENA on 12/25/22 Normal [facility] Covid-19 PCR (CVDTB)on SARS-CoV-2 (COVID-19) RNA ANGELA+probe Ql (Unsp spec) Not detected Normal NOT DETECTED [facility] Comment on above: Result Comment: When [...] for this test is supported by the [place] of Health and Human Service's declaration that [...] longer be used). Performed By: #### [facility] #### [facility] [address] [place] [address] Dr. Cheryl Monzon INFLUENZA A AND B AGon 11-19 INFLUANEGH SEE BELOW Normal [facility] Comment on above: Result Comment: Nega tive for Flu A protein angiten. Infection due to Flu A cannot be ruled out. Flu A angiten in the sample may be below the detection limit of the test. Performed By: #### I NFLUAB #### [facility] [address] [place] [address] Dr. Cheryl Monzno INFLUBNEG SEE BELOW Normal [facility] Comment on above: Result Comment: Nega tive for Flu B protein antigen. Infection due to Flu B cannot be ruled out. Flu B antigen in the sample may be below the detection limit of the test. Performed By: #### I NFLUAB #### [facility] [address] [place] [address] Dr. Cheryl Monzon INFLUENZA A AG Negative Normal NEGATIVE SEE COMMENT [facility] Comment on above: Performed By: #### I NFLUAB #### [facility] [address] [place] [address] Dr. Cheryl Monzon INFLUENZA B AG Negative Normal NEGATIVE SEE COMMENT [facility] Comment on above: Performed By: #### I NFLUAB #### [facility] [address] [place] [address] Dr. Cheryl Monzon MG MAMM SCREEN 3D RAGHU CADon 10-04-2022 MG MAMM SCREEN 3D RAGHU CAD Patient: ISABEL WADDELL Exam Date: 10/04/2022 : 1960 Gender:F Ordering : DR ROLAND SERRANO D.O. Admission #: [id number] Family : Order #: [id number] CLICK HERE TO VIEW EXAM RADIOLOGY REPORT [...] Treatments radiation-hysterectomy Family Cancers None LOCATION: [facility] BREAST COMPOSITION: Scattered areas fibroglandular density. [...] MD on 10/04/2022 at 13:[address] [facility] COLONOSCOPY (THERAPEUTIC)on 09-26-2022 [facility] T3, TOTAL (TRIIODOTHYRONINE) on 09-05-2022 T3, TOTAL 132 ng/dL Normal 71-[address] [facility] Comment on above: Performed By: #### T 3TOTAL ####[facility] [address] [place], [place] [address]Dr. Cheryl Monzon CBC AUTO DIFFon 09-04-2022 BASO # 0.0 103/ul Normal 0.0-0.[address] [facility] Comment on above: Performed By: #### C BC ####[facility] [address] [place], [place] [address]Dr. Cheryl Monzon Basophils/100 WBC (Bld) 0.4 % Normal 0.2-2.[address] [facility] Comment on above: Performed By: #### C BC ####[facility] [address] [place], [place] [address]Dr. Cheryl Monzon EO # 0.1 103/ul Normal 0.0-0.[address] [facility] Comment on above: Performed By: #### C BC ####[facility] [address] [place], [place] [address]Dr. Cheryl Monzon Eosinophils/100 WBC (Bld) 4.9 % Normal 0.9-7.[address] [facility] Comment on above: Performed By: #### C BC ####[facility] [address] [place], [place] [address]Dr. Cheryl Monzon Erythrocyte distribution width (RBC) [Ratio] 12.8 % Normal 11.0-15.[address] [facility] Comment on above: Performed By: #### C BC ####[facility] [address] [place], [place] [address]Dr. Cheryl Monzon Hematocrit (Bld) [Volume fraction] 36.7 % Normal 36.0-48.[address] [facility] Comment on above: Performed By: #### C BC ####[facility] [address] [place] [id number]. Cheryl Monzon Hemoglobin (Bld) [Mass/Vol] 11.8 g/dL Critically low 12.0-16.0 [facility] Comment on above: Performed By: #### C BC ####[facility] [address] [place] [address]Dr. Cheryl Monzon IG # 0.01 10e3/ul Normal 0.00-0.[address] [facility] Comment on above: Performed By: #### C BC ####[facility] [address] [place], [place] [address]Dr. Cheryl Monzon IG % 0.4 % Normal 0.0-0.5 [facility] Comment on above: Performed By: #### C BC ####[facility] [address] [place], [place] [address]Dr. Cheryl Monzon LYMPH # 0.8 103/ul Critically low 1.2-3.8 [facility] Comment on above: Performed By: #### C BC ####[facility] [address] [place] [address]Dr. Cheryl Monzon Lymphocytes/100 WBC (Bld) 28.6 % Normal 20.5-60.0 [facility] Comment on above: Performed By: #### C BC ####[facility] [address] [place] [address]Dr. Cheryl Monzon MANUAL DIFF REQ NO Normal [facility] Comment on above: Performed By: #### C BC ####[facility] [address] [place], [place] [address]Dr. Cheryl Monzon MCH (RBC) [Entitic mass] 30.7 pg Normal 26.7-34.[address] [facility] Comment on above: Performed By: #### C BC ####[facility] [address] [place], [place] [address]Dr. Cheryl Monzon MCHC (RBC) [Mass/Vol] 32.2 g/dL Normal 29.9-35.[address] [facility] Comment on above: Performed By: #### C BC ####[facility] [address] [place] [address]Dr. Cheryl Monzon MCV (RBC) [Entitic vol] 95.6 fL Normal 81.0-99.[address] [facility] Comment on above: Performed By: #### C BC ####[facility] [address] [place] [address]Dr. Cheryl Monzon MONO # 0.3 103/ul Normal 0.3-0.[address] [facility] Comment on above: Performed By: #### C BC ####[facility] [address] [place] [address]Dr. Cheryl Monzon Monocytes/100 WBC (Bld) 11.7 % Normal 1.7-12.[address] [facility] Comment on above: Performed By: #### C BC ####[facility] [address] [place], [place] [address]Dr. Cheryl Monzon NEUT # 1.4 103/ul Normal 1.4-6.[address] [facility] Comment on above: Performed By: #### C BC ####[facility] [address] [place], [place] [address]Dr. Cheryl Monzon Neutrophils/100 WBC (Bld) 54.0 % Normal 43.0-75.[address] [facility] Comment on above: Performed By: #### C BC ####[facility] [address] [place] [address]Dr. Cheryl Monzon Platelet mean volume (Bld) [Entitic vol] 9.2 fL Critically low 9.5-13.[address] [facility] Comment on above: Performed By: #### C BC ####[facility] [address] [place] [address]Dr. Cheryl Monzon PLT 217 103/ul Normal 150-[address] [facility] Comment on above: Performed By: #### C BC ####[facility] [address] [place] [address]Dr. Cheryl Monzon RBC 3.84 106/ul Critically low 4.20-5.40 [facility] Comment on above: Performed By: #### C BC ####[facility] [address] [place] [address]Dr. Cheryl Monzon WBC 2.7 103/ul Critically low 4.0-11.0 [facility] Comment on above: Performed By: #### C BC ####[facility] [address] [place], [place] [address]IiDr. Cheryl Monzon FREE T4on 09-04-2022 Free T4 [Mass/Vol] 0.83 ng/dL Normal 0.76-1.46 [facility] Comment on above: Performed By: #### F T4 #### [facility] [address] [place] [address] [address] Cheryl Monzon GLYCOHEMOGLOBIN A1Con 2021 ADA RECOMMENDATION SEE BELOW Normal [facility] Comment on above: Result Comment: ADA RECOMMENDED LIMIT 4.0 - 6.0 ADA THERAPEUTIC TARGET < 7.0 ACTION SUGGESTED > 7.0 Performed By: #### A 1C #### [facility] [address] [place] [address] [address] Cheryl Monzon Glucose [Mass/Vol] 111 mg/dL Normal [facility] Comment on above: Performed By: #### A 1C #### [facility] [address] [place] [address] [address] Cheryl Monzon HbA1c (Bld) [Mass fraction] 5.5 % Normal 4.5-6.2 [facility] Comment on above: Performed By: #### A 1C #### [facility] [address] [address] [address] Cheryl Monzon LIPID PROFILEon 09-04-2022 CHOL-HDL RATIO NORM SEE BELOW Normal [facility] Comment on above: Result Comment: 3.3 - 4.4 LOW RISK 4.4 - 7.1 AVERAGE RISK 7.1 - 11.0 MODERATE RISK >11.0 HIGH RISK Performed By: #### T SH, LIPID, CMP ####[facility] [address] [place] [id number]. Cheryl Monzon Cholesterol [Mass/Vol] 201 mg/dL Critically high <=200 [facility] Comment on above: Performed By: #### T SH, LIPID, CMP ####[facility] [address] [place], [place] [address]Wp. Cheryl Monzon Cholesterol in HDL [Mass/Vol] 78 mg/dL Critically high 40-[address] [facility] Comment on above: Performed By: #### T SH, LIPID, CMP ####[facility] [address] [place], [place] [address]Vx. Cheryl Monzon Cholesterol in LDL [Mass/Vol] 112.8 mg/dL Normal [facility] Comment on above: Performed By: #### T SH, LIPID, CMP ####[facility] [address] [place] [address]Dr. Cheryl Monzon Cholesterol.total/Chol esterol in HDL [Mass ratio] 2.6 {ratio} Normal [facility] Comment on above: Performed By: #### T SH, LIPID, CMP ####[facility] [address] [place] [address]Dr. Cheryl Monzon HDL NORMAL > or = 60 mg/dl - LO W CARDIOVASCULAR RISK <40 mg/dl - HIGH CARDIOVASCULAR RISK Normal [facility] Comment on above: Performed By: #### T SH, LIPID, CMP ####[facility] [address] [place] [address]Dr. Cheryl Monzon LDL CALC NORMAL SEE BELOW Normal [facility] Comment on above: Result Comment: <100 mg/dl OPTIMAL 100 - 129 mg/dl NEAR OR ABOVE OPTIMAL 130 - 159 mg/dl BORDERLINE HIGH 160 - 189 mg/dl HIGH >190 mg/dl VERY HIGH Performed By: #### T SH, LIPID, CMP ####[facility] [address] [place] [address]Dr. Cheryl Monzon Triglyceride [Mass/Vol] 51 mg/dL Normal <=[address] [facility] Comment on above: Performed By: #### T SH, LIPID, CMP ####[facility] [address] [place] [address]Dr. Lissettalden Monzon VLDL CALC 10.2 mg/dL Normal [facility] Comment on above: Performed By: #### T SH, LIPID, CMP ####[facility] [address] [place] [address]Dr. Cheryl Monzon PROF 14(COMP METB)on 022 Albumin [Mass/Vol] 3.3 g/dL Critically low 3.4-5.0 [facility] Comment on above: Performed By: #### T SH, LIPID, CMP #### [facility] [address] [address] [address] Cheryl Monzon Albumin/Globulin [Mass ratio] 1.0 {ratio} Normal [facility] Comment on above: Performed By: #### T SH, LIPID, CMP #### [facility] [address] [place] [address] [address] Cheryl Monzon ALP [Catalytic activity/Vol] 94 U/L Normal 46-116 [facility] Comment on above: Performed By: #### T SH, LIPID, CMP #### [facility] [address] [address] [address] Cheryl Monzon ALT [Catalytic activity/Vol] 53 U/L Normal 14-59 [facility] Comment on above: Performed By: #### T SH, LIPID, CMP #### [facility] [address] [address] [address] Cheryl Monzon Anion gap [Moles/Vol] 8.8 mmol/L Normal [facility] Comment on above: Performed By: #### T SH, LIPID, CMP #### [facility] [address] [address] [address] Cheryl Monzon AST [Catalytic activity/Vol] 42 U/L Critically high 15-37 [facility] Comment on above: Performed By: #### T SH, LIPID, CMP #### [facility] [address] [place] [address] [address] Cheryl Monzon Bilirubin [Mass/Vol] 0.3 mg/dL Normal 0.2-1.0 [facility] Comment on above: Performed By: #### T SH, LIPID, CMP #### [facility] [address] [address] [address] Cheryl Monzon Calcium [Mass/Vol] 8.8 mg/dL Normal 8.5-10.1 [facility] Comment on above: Performed By: #### T SH, LIPID, CMP #### [facility] [address] [address] [address] Cheryl Monzon Chloride [Moles/Vol] 106 mmol/L Normal 98-107 [facility] Comment on above: Performed By: #### T SH, LIPID, CMP #### [facility] [address] [address] [address] Cheryl Monzon CO2 [Moles/Vol] 30.7 mmol/L Normal 21.0-32.0 [facility] Comment on above: Performed By: #### T SH, LIPID, CMP #### [facility] [address] [place] [address] [address] Cheryl Monzon Creatinine [Mass/Vol] 0.66 mg/dL Normal 0.55-1.02 [facility] Comment on above: Performed By: #### T SH, LIPID, CMP #### [facility] [address] [address] [address] Cheryl Monzon EGFR-AF PALESTINIAN >60 Normal >=60 [facility] Comment on above: Performed By: #### T SH, LIPID, CMP #### [facility] [address] [place] [address] [address] Cheryl Monzon EGFR-NON AF PALESTINIAN >60 Normal >=60 [facility] Comment on above: Performed By: #### T SH, LIPID, CMP #### [facility] [address] [address] [address] Cheryl Monzon Globulin (S) [Mass/Vol] 3.4 g/dL Normal [facility] Comment on above: Performed By: #### T SH, LIPID, CMP #### [facility] [address] [address] [address] Cheryl Monzon Glucose [Mass/Vol] 115 mg/dL Critically high 74-106 [facility] Comment on above: Performed By: #### T SH, LIPID, CMP #### [facility] [address] [address] [address] Cheryl Monzon Potassium [Moles/Vol] 4.5 mmol/L Normal 3.5-5.1 [facility] Comment on above: Performed By: #### T SH, LIPID, CMP #### [facility] [address] [place] [address] Dr. Cheryl Monzon Protein [Mass/Vol] 6.7 g/dL Normal 6.4-8.2 [facility] Comment on above: Performed By: #### T SH, LIPID, CMP #### [facility] [address] [place] [address] Dr. Cheryl Monzon Sodium [Moles/Vol] 141 mmol/L Normal 136-145 [facility] Comment on above: Performed By: #### T SH, LIPID, CMP #### [facility] [address] [place] [address] Dr. Cheryl Monzon Urea nitrogen [Mass/Vol] 16.0 mg/dL Normal 7.0-18.0 [facility] Comment on above: Performed By: #### T SH, LIPID, CMP #### [facility] [address] [place] [address] Dr. Cheryl Monzon Urea nitrogen/Creatinine [Mass ratio] 24.2 mg/mg Normal [facility] Comment on above: Performed By: #### T SH, LIPID, CMP #### [facility] [address] [place] [address] Dr. Cheryl Monzon TSHon 09-04-2022 TSH 0.009 uIU/mL Critically low 0.358-3.740 [facility] Comment on above: Performed By: #### T SH, LIPID, CMP #### [facility] [address] [place] [address] Dr. Cheryl Monzon Cov[facility]-19 PCR [facility]on 05[facility]18 SARS-CoV-2 (COVID-19) RNA ANGELA+probe Ql (Unsp spec) Not detected Normal NOT DETECTED [facility] Comment on above: Result Comment: When [...] for this test is supported by the [place] of Health and Human Service's declaration that [...] used). Performed By: #### C VDTBH #### [facility] [address] [place], [place] [address] Dr. Cheryl Monzon CBC with Diffon 11-22-2021 Abs. Basophil 0.00 k/uL Normal 0.0-0.2 [facility] Comment on above: Performed By: #### C DP, CMPX, SED, LAC #### [facility] [address] [place] [address] Sociology Instructor: Jacob Campos MD Abs.Neutrophil (Seg) 2.80 k/uL Normal 2.5-7.0 [facility] Comment on above: Performed By: #### C DP, CMPX, SED, LAC #### [facility] [address] [place] [address] Sociology Instructor: Jacob Campos MD Auto Diff Performed YES Normal [facility] Comment on above: Performed By: #### C DP, CMPX, SED, LAC #### [facility] [address] [place] [phone] Sociology Instructor: Jacob Campos MD Basophils/100 WBC (Bld) 1 % Normal 0-2 [facility] Comment on above: Performed By: #### C DP, CMPX, SED, LAC #### [facility] [address] [place] [phone] Sociology Instructor: Jacob Campos MD Eosinophils (Bld) [#/Vol] 0.10 10*3/uL Normal 0.0-0.4 [facility] Comment on above: Performed By: #### C DP, CMPX, SED, LAC #### [facility] [address] [place] [address] Sociology Instructor: Jacob Campos MD Eosinophils/100 WBC (Bld) 3 % Normal 0-5 [facility] Comment on above: Performed By: #### C DP, CMPX, SED, LAC #### [facility] [address] [place] [phone] Sociology Instructor: Jacob Campos MD Erythrocyte distribution width (RBC) [Ratio] 13.6 % Normal 12.1-15.2 [facility] Comment on above: Performed By: #### C DP, CMPX, SED, LAC #### [facility] [address] [place] [phone] Sociology Instructor: Jacob Campos MD Hematocrit (Bld) [Volume fraction] 33.4 % Low 36-46 [facility] Comment on above: Performed By: #### C DP, CMPX, SED, LAC #### [facility] [address] [place] [phone] Sociology Instructor: Jacob Campos MD Hemoglobin (Bld) [Mass/Vol] 11.3 g/dL Low 12.0-16.0 [facility] Comment on above: Performed By: #### C DP, CMPX, SED, LAC #### [facility] [address] [place] [phone] Sociology Instructor: Jacob Campos MD Lymphocytes (Bld) [#/Vol] 0.80 10*3/uL Low 1.0-4.8 [facility] Comment on above: Performed By: #### C DP, CMPX, SED, LAC #### [facility] [address] [place] [address] Sociology Instructor: Jacob Campos MD Lymphocytes/100 WBC (Bld) 19 % Normal 15-40 [facility] Comment on above: Performed By: #### C DP, CMPX, SED, LAC #### [facility] [address] [place], [place] [phone] Sociology Instructor: Jacob Campos MD MCH (RBC) [Entitic mass] 30.5 pg Normal 26-34 [facility] Comment on above: Performed By: #### C DP, CMPX, SED, LAC #### [facility] [address] [place] [address] Sociology Instructor: Jacob Campos MD MCHC (RBC) [Mass/Vol] 33.8 g/dL Normal 31-37 [facility] Comment on above: Performed By: #### C DP, CMPX, SED, LAC #### [facility] [address] [place] [address] Sociology Instructor: Jacob Campos MD MCV (RBC) [Entitic vol] 90.4 fL Normal 80-100 [facility] Comment on above: Performed By: #### C DP, CMPX, SED, LAC #### [facility] [address] [place] [address] Sociology Instructor: Jacob Campos MD Monocytes (Bld) [#/Vol] 0.50 10*3/uL Normal 0.0-1.0 [facility] Comment on above: Performed By: #### C DP, CMPX, SED, LAC #### [facility] [address] [place] [address] Sociology Instructor: Jacob Campos MD Monocytes/100 WBC (Bld) 12 % High 4-8 [facility] Comment on above: Performed By: #### C DP, CMPX, SED, LAC #### [facility] [address] [place], [place] [phone] Sociology Instructor: Jacob Campos MD Neutrophil (Seg) 65 % Normal 47-75 [facility] Comment on above: Performed By: #### C DP, CMPX, SED, LAC #### [facility] [address] [place] [address] Sociology Instructor: Jacob Campos MD Platelets (Bld) [#/Vol] 378 10*3/uL Normal 140-450 [facility] Comment on above: Performed By: #### C DP, CMPX, SED, LAC #### [facility] [address] [place] [address] Sociology Instructor: Jacob Campos MD RBC (Bld) [#/Vol] 3.70 10*6/uL Low 4.0-5.2 [facility] Comment on above: Performed By: #### C DP, CMPX, SED, LAC #### [facility] [address] [place] [address] Sociology Instructor: Jacob Campos MD WBC (Bld) [#/Vol] 4.3 10*3/uL Normal 3.5-11.0 [facility] Comment on above: Performed By: #### C DP, CMPX, SED, LAC #### [facility] [address] [place] [address] Sociology Instructor: Jacob Campos MD Comp Metabolic Pr/rfx MGon 0 11-22-2021 (cont.) Normal [facility] Comment on above: Result Comment: Aver age GFR for 60-69 years old: 85 mL/min/1.73sq m Chronic Kidney Disease: <60 mL/min/1.73sq m Kidney failure: <15 mL/min/1.73sq m eGFR calculated using average adult body mass. Additional eGFR calculator available at: http://www.Netstory.com/multiple_crcl_2012.htm Performed By: #### C DP, CMPX, SED, LAC #### [facility] [address] [place] [address] Sociology Instructor: Jacob Campos MD Albumin [Mass/Vol] 3.5 g/dL Normal 3.5-5.2 [facility] Comment on above: Performed By: #### C DP, CMPX, SED, LAC #### [facility] [address] [place], [place] [phone] Sociology Instructor: Jacob Campos MD Alkaline Phos 239 U/L High 35-104 [facility] Comment on above: Performed By: #### C DP, CMPX, SED, LAC #### [facility] [address] [place], [place] [phone] Sociology Instructor: Jacob Campos MD ALT [Catalytic activity/Vol] 23 U/L Normal 5-33 [facility] Comment on above: Performed By: #### C DP, CMPX, SED, LAC #### [facility] [address] [place], [place] [phone] Sociology Instructor: Jacob Campos MD Anion gap [Moles/Vol] 11 mmol/L Normal 9-17 [facility] Comment on above: Performed By: #### C DP, CMPX, SED, LAC #### [facility] [address] [place], [place] [phone] Sociology Instructor: Jacob Campos MD AST [Catalytic activity/Vol] 21 U/L Normal <32 [facility] Comment on above: Performed By: #### C DP, CMPX, SED, LAC #### [facility] [address] [place], [place] [phone] Sociology Instructor: Jacob Campos MD Bilirubin [Mass/Vol] 0.27 mg/dL Low 0.30-1.20 [facility] Comment on above: Performed By: #### C DP, CMPX, SED, LAC #### [facility] [address] [place], [place] [phone] Sociology Instructor: Jacob Campos MD BUN/CRE Ratio 22 High 9-20 [facility] Comment on above: Performed By: #### C DP, CMPX, SED, LAC #### [facility] [address] [place] [address] Sociology Instructor: Jacob Campos MD Calcium [Mass/Vol] 9.5 mg/dL Normal 8.6-10.4 [facility] Comment on above: Performed By: #### C DP, CMPX, SED, LAC #### [facility] [address] [place] [phone] Sociology Instructor: Jacob Campos MD Chloride [Moles/Vol] 102 mmol/L Normal 98-107 [facility] Comment on above: Performed By: #### C DP, CMPX, SED, LAC #### [facility] [address] [place] [phone] Sociology Instructor: Jacob Campos MD CO2 [Moles/Vol] 26 mmol/L Normal 20-31 [facility] Comment on above: Performed By: #### C DP, CMPX, SED, LAC #### [facility] [address] [place] [phone] Sociology Instructor: Jacob Campos MD Creatinine [Mass/Vol] 0.58 mg/dL Normal 0.50-0.90 [facility] Comment on above: Performed By: #### C DP, CMPX, SED, LAC #### [facility] [address] [place] [phone] Sociology Instructor: Jacob Campos MD GFR, Amer >60 Normal >60 [facility] Comment on above: Performed By: #### C DP, CMPX, SED, LAC #### [facility] [address] [place] [address] Sociology Instructor: Jacob Campos MD GFR,non Amer >60 Normal >60 [facility] Comment on above: Performed By: #### C DP, CMPX, SED, LAC #### [facility] [address] [place], [place] [phone] Sociology Instructor: Jacob Campos MD Glucose [Mass/Vol] 109 mg/dL High 70-99 [facility] Comment on above: Performed By: #### C DP, CMPX, SED, LAC #### [facility] [address] [place], [place] [phone] Sociology Instructor: Jacob Campos MD Potassium [Moles/Vol] 3.7 mmol/L Normal 3.7-5.3 [facility] Comment on above: Performed By: #### C DP, CMPX, SED, LAC #### [facility] [address] [place] [phone] Sociology Instructor: Jacob Campos MD Protein [Mass/Vol] 7.0 g/dL Normal 6.4-8.3 [facility] Comment on above: Performed By: #### C DP, CMPX, SED, LAC #### [facility] [facility] [address] [place], [place] [id number] Sociology Instructor: Jacob Campos MD Sodium [Moles/Vol] 139 mmol/L Normal 135-144 [facility] Comment on above: Performed By: #### C DP, CMPX, SED, LAC #### [facility] [address] [place], [place] [id number] Sociology Instructor: Jacob Campos MD Urea nitrogen [Mass/Vol] 13 mg/dL Normal 8-23 [facility] Comment on above: Performed By: #### C DP, CMPX, SED, LAC #### [facility] [address] [place], [place] [id number] Sociology Instructor: Jacob Campos MD Lactic Acidon 11-22-2021 Lactate [Moles/Vol] 0.7 mmol/L Normal 0.5-2.2 [facility] Comment on above: Performed By: #### C DP, CMPX, SED, LAC #### [facility] [address] [place], [place] [id number] Sociology Instructor: Jacob Campos MD Sedimentation Rateon 022 Sedimentation Rate 48 mm High 0-30 [facility] Comment on above: Performed By: #### C DP, CMPX, SED, LAC #### [facility] [address] [place], [place] [id number] Sociology Instructor: Jacob Campos MD Urinalysis, Routineon 2021 Bilirubin, SemiQt,Ur Negative Normal NEG [facility] Comment on above: Performed By: #### U A #### [facility] [address] [place], [place] [id number] Sociology Instructor: Jacob Campos MD Blood, Urine Negative Normal NEG [facility] Comment on above: Performed By: #### U A #### [facility] [address] [place], [place] [id number] Sociology Instructor: Jacob Campos MD Clarity (U) Clear Normal CLEAR [facility] Comment on above: Performed By: #### U A #### [facility] [address] [place], [place] [id number] Sociology Instructor: Jacob Campos MD Color (U) Yellow Normal YEL [facility] Comment on above: Performed By: #### U A #### [facility] [address] [place], [place] [id number] Sociology Instructor: Jacob Campos MD Comment Normal [facility] Comment on above: Performed By: #### U A #### [facility] [address] [place], [place] [id number] Sociology Instructor: Jacob Campos MD Glucose Ql (U) Negative Normal NEG [facility] Comment on above: Performed By: #### U A #### [facility] [address] [place], [place] [phone] Sociology Instructor: Jacob Campos MD Ketones Ql (U) Negative Normal NEG [facility] Comment on above: Performed By: #### U A #### [facility] [address] [place], [place] [id number] Sociology Instructor: Jacob Campos MD Leukocyte esterase Test strip Ql (U) Negative Normal NEG [facility] Comment on above: Performed By: #### U A #### [facility] [address] [place], [place] [phone] Sociology Instructor: Jacob Campos MD Nitrite,Ur Negative Normal NEG [facility] Comment on above: Performed By: #### U A #### [facility] [address] [place], [place] [phone] Sociology Instructor: Jacob Campos MD PH,Ur 6.5 Normal 5.0-8.0 [facility] Comment on above: Performed By: #### U A #### [facility] [address] [place], [place] [phone] Sociology Instructor: Jacob Campos MD Protein Ql (U) Negative Normal NEG [facility] Comment on above: Performed By: #### U A #### [facility] [address] [place], [place] [phone] Sociology Instructor: Jacob Campos MD Spec. [place],Ur 1.015 Normal 1.005-1.030 [facility] Comment on above: Performed By: #### U A #### [facility] [address] [place], [place] [phone] Sociology Instructor: Jacob Campos MD Urobilinogen,Ur Normal Normal NORM [facility] Comment on above: Performed By: #### U A #### [facility] [address] [place], [place] [phone] Sociology Instructor: Jacob Campos MD Basic Metabolic Panelon Calcium [Mass/Vol] 9.4 mg/dL Normal 8.2-10.2 [facility] Comment on above: Performed By: #### C BC, BMP #### [facility] [address] Chloride [Moles/Vol] 101 mmol/L Normal 95-114 [facility] Comment on above: Performed By: #### C BC, BMP #### [facility] [address] CO2 [Moles/Vol] 26.3 mmol/L Normal 22.0-30.0 [facility] Comment on above: Performed By: #### C BC, BMP #### [facility] [address] Creatinine [Mass/Vol] 0.72 mg/dL Normal 0.44-1.03 [facility] Comment on above: Performed By: #### C BC, BMP #### [facility] [address] [place] [address] [place] Creatinine Clr Calc Pharmacy 76.81 [facility] Comment on above: Result Comment: PERF ORMED BY: [place] [address] PATHOLOGIST ZYGLO TECHNICIAN CLAIRE ANTHONY M.D. Performed By: #### C BC, BMP #### [facility] [address] Estimated GFR ( Damon > 60 [facility] Comment on above: Result Comment: GFR estimated reference range: According to KDOQI guidelines, <60 ml/min/1.73m2 is sufficient to diagnose a patient with chronic kidney disease. Performed By: #### C BC, BMP #### [facility] [address] Estimated GFR (Non- Am > 60 [facility] Comment on above: Performed By: #### C BC, BMP #### [facility] [address] Glucose [Mass/Vol] 104 mg/dL High 70-100 [facility] Comment on above: Result Comment: [place] Glucose Reference Range is dependent on time and content of last meal. Glucose of more than 200 mg/dL in a nonstressed, ambulatory subject supports the diagnosis of Diabetes Mellitus. ADA recommended reference range Performed By: #### C BC, BMP #### [facility] [address] Potassium [Moles/Vol] 3.8 mmol/L Normal 3.5-5.1 [facility] Comment on above: Performed By: #### C BC, BMP #### [facility] [address] Sodium [Moles/Vol] 138 mmol/L Normal 136-146 [facility] Comment on above: Performed By: #### C BC, BMP #### [facility] [address] Urea nitrogen [Mass/Vol] 13 mg/dL Normal 9-23 [facility] Comment on above: Performed By: #### C BC, BMP #### [facility] [address] CBC with Diffon 11-21-2021 Abs.Imm.Granulocyte NOT REPORTED Normal 0.00-0.30 [facility] Comment on above: Performed By: #### C DP, CMPX, SED, LAC #### [facility] [address] [place] [address] Sociology Instructor: Jacob Campos MD Immature Granulocyte NOT REPORTED Normal 0 [facility] Comment on above: Performed By: #### C DP, CMPX, SED, LAC #### [facility] [address] [place] [address] Sociology Instructor: Jacob Campos MD MPV NOT REPORTED Normal 6.0-12.0 [facility] Comment on above: Performed By: #### C DP, CMPX, SED, LAC #### [facility] [address] [place] [address] Sociology Instructor: Jacob Campos MD NRBC Automated NOT REPORTED Normal [facility] Comment on above: Performed By: #### C DP, CMPX, SED, LAC #### [facility] [address] [place], [place] [phone] Sociology Instructor: Jacob Campos MD Platelet Comment NOT REPORTED Normal [facility] Comment on above: Performed By: #### C DP, CMPX, SED, LAC #### [facility] [address] [place], [place] [phone] Sociology Instructor: Jacob Campos MD RBC morphology finding Nom (Bld) NOT REPORTED Normal [facility] Comment on above: Performed By: #### C DP, CMPX, SED, LAC #### [facility] [address] [place] [phone] Sociology Instructor: Jacob Campos MD WBC Morphology NOT REPORTED Normal [facility] Comment on above: Performed By: #### C DP, CMPX, SED, LAC #### [facility] [address] [place] [phone] Sociology Instructor: Jacob Campos MD Comp Metabolic Pr/rfx MGon 0 11-21-2021 Albumin/Glob Ratio NOT REPORTED Normal 1.0-2.5 [facility] Comment on above: Performed By: #### C DP, CMPX, SED, LAC #### [facility] [address] [place], [place] [phone] Sociology Instructor: Jacob Campos MD Staging: NOT REPORTED Normal [facility] Comment on above: Performed By: #### C DP, CMPX, SED, LAC #### [facility] [address] [place], [place] [phone] Sociology Instructor: Jacob Campos MD Complete Blood Count Auto Di ffon 11-21-2021 Basophils (Bld) [#/Vol] 0.0 10*3/uL Normal 0.0-0.2 [facility] Comment on above: Result Comment: PERF ORMED BY: [facility] [address] [place] [address] PATHOLOGIST ZYGLO TECHNICIAN CLAIRE ANTHONY M.D. Performed By: #### C BC, BMP #### [facility] [address] [place] [address] [place] Basophils/100 WBC (Bld) 0.7 % Normal . [facility] Comment on above: Performed By: #### C BC, BMP #### [facility] [address] [place] [phone] [place] Eosinophils (Bld) [#/Vol] 0.1 10*3/uL Normal 0.0-0.45 [facility] Comment on above: Performed By: #### C BC, BMP #### [facility] [address] [place] [address] [place] Eosinophils/100 WBC (Bld) 2.8 % Normal . [facility] Comment on above: Performed By: #### C BC, BMP #### [facility] [address] Erythrocyte distribution width (RBC) [Ratio] 13.2 % Normal 11.9-15.3 [facility] Comment on above: Performed By: #### C BC, BMP #### [facility] [address] [place] [address] [place] Hematocrit (Bld) [Volume fraction] 35.7 % Normal 34.0-46.4 [facility] Comment on above: Performed By: #### C BC, BMP #### [facility] [address] [place] [address] [place] Hemoglobin (Bld) [Mass/Vol] 11.9 g/dL Normal 11.8-15.4 [facility] Comment on above: Performed By: #### C BC, BMP #### [facility] [address] [place] [phone] [place] Lymphocytes (Bld) [#/Vol] 0.8 10*3/uL Low 1.00-4.8 [facility] Comment on above: Performed By: #### C BC, BMP #### [facility] [address] [place] [phone] [place] Lymphocytes/100 WBC (Bld) 16.7 % Normal . [facility] Comment on above: Performed By: #### C BC, BMP #### [facility] [address] MCH (RBC) [Entitic mass] 30.2 pg Normal 24.7-34.3 [facility] Comment on above: Performed By: #### C BC, BMP #### [facility] [address] MCV (RBC) [Entitic vol] 90.6 fL Normal 80-100 [facility] Comment on above: Performed By: #### C BC, BMP #### [facility] [address] Mean Corpuscular HGB Conc 33.3 g/dL Normal 32.0-35.0 [facility] Comment on above: Performed By: #### C BC, BMP #### [facility] [address] Monocytes (Bld) [#/Vol] 0.4 10*3/uL Normal 0.0-0.8 [facility] Comment on above: Performed By: #### C BC, BMP #### [facility] [address] [place] [address] [place] Monocytes/100 WBC (Bld) 9.1 % Normal . [facility] Comment on above: Performed By: #### C BC, BMP #### [facility] [address] Neutrophils (Bld) [#/Vol] 3.4 10*3/uL Normal 1.8-7.7 [facility] Comment on above: Performed By: #### C BC, BMP #### [facility] [address] [place] [address] [place] Neutrophils/100 WBC (Bld) 70.7 % Normal . [facility] Comment on above: Performed By: #### C BC, BMP #### [facility] [address] Nucleated RBC/100 WBC (Bld) [Ratio] 0.0 % Normal 0-0.5 [facility] Comment on above: Performed By: #### C BC, BMP #### [facility] [address] Platelet mean volume (Bld) [Entitic vol] 6.9 fL Normal 6.3-10.7 [facility] Comment on above: Performed By: #### C BC, BMP #### [facility] [address] [place] [phone] [place] Platelets (Bld) [#/Vol] 423 10*3/uL Normal 150-450 [facility] Comment on above: Performed By: #### C BC, BMP #### [facility] [address] RBC (Bld) [#/Vol] 3.94 10*6/uL Normal 3.60-5.00 [facility] Comment on above: Performed By: #### C BC, BMP #### [address] WBC (Bld) [#/Vol] 4.8 10*3/uL Normal 4.5-11.0 [facility] Comment on above: Performed By: #### C BC, BMP #### [place] [address] [place] Dipstick and Microscopicon 0 11-21-2021 Appearance (U) Clear Normal Clear [facility] Comment on above: Order Comment: Name Collection Type:: Clean-Voided Midstream Performed By: #### C BC, BMP #### [place] [address] [place] Bacteria,Urine None Seen Normal None Seen [facility] Comment on above: Order Comment: Name Collection Type:: Clean-Voided Midstream Performed By: #### C BC, BMP #### [place] [address] [place] Bilirubin,Urine Negative Normal Negative [facility] Comment on above: Order Comment: Name Collection Type:: Clean-Voided Midstream Performed By: #### C BC, BMP #### [place] [address] [place] Color (U) Yellow Normal Yellow [facility] Comment on above: Order Comment: Name Collection Type:: Clean-Voided Midstream Performed By: #### C BC, BMP #### [facility] [address] Glucose Ql (U) Normal Normal Normal [facility] Comment on above: Order Comment: Name Collection Type:: Clean-Voided Midstream Performed By: #### C BC, BMP #### [facility] [address] [place] [address] [place] Hyaline Casts,Urine 0-8 Normal 0-8 [facility] Comment on above: Order Comment: Name Collection Type:: Clean-Voided Midstream Result Comment: PERF ORMED BY: [place] [address] PATHOLOGIST ZYGLO TECHNICIAN CLAIRE ANTHONY M.D. Performed By: #### C BC, BMP #### [facility] [address] [place] [address] Ketones Ql (U) Negative Normal Negative [facility] Comment on above: Order Comment: Name Collection Type:: Clean-Voided Midstream Performed By: #### C BC, BMP #### [address] Leukocyte esterase Test strip Ql (U) 1+ High Negative [facility] Comment on above: Order Comment: Name Collection Type:: Clean-Voided Midstream Performed By: #### C BC, BMP #### [facility] [address] [place] [address] [place] Nitrite,Urine Negative Normal Negative [facility] Comment on above: Order Comment: Name Collection Type:: Clean-Voided Midstream Performed By: #### C BC, BMP #### [facility] [address] [place] [address] [place] Occult Blood,Urine Negative Normal Negative [facility] Comment on above: Order Comment: Name Collection Type:: Clean-Voided Midstream Result Comment: PERF ORMED BY: [place] [address] PATHOLOGIST ZYGLO TECHNICIAN CLAIRE ANTHONY M.D. Performed By: #### C BC, BMP #### [address] pH (U) 6.5 [pH] Normal 5.0-9.0 [facility] Comment on above: Order Comment: Name Collection Type:: Clean-Voided Midstream Performed By: #### C BC, BMP #### [address] Protein,Urine Negative Normal Negative [facility] Comment on above: Order Comment: Name Collection Type:: Clean-Voided Midstream Performed By: #### C BC, BMP #### [address] RBC,Urine 1-2 Normal 0-4 [facility] Comment on above: Order Comment: Name Collection Type:: Clean-Voided Midstream Performed By: #### C BC, BMP #### [address] Specificy [place],Urine 1.014 Normal 1.001-1.030 [facility] Comment on above: Order Comment: Name Collection Type:: Clean-Voided Midstream Performed By: #### C BC, BMP #### [address] Squamous Epithelial Cell,Urine None Seen Normal 0-2 [facility] Comment on above: Order Comment: Name Collection Type:: Clean-Voided Midstream Performed By: #### C BC, BMP #### [address] Urobilinogen,Urine Normal Normal Normal [facility] Comment on above: Order Comment: Name Collection Type:: Clean-Voided Midstream Performed By: #### C BC, BMP #### [place] [address] [place] WBC,Urine 1-2 Normal 0-4 [facility] Comment on above: Order Comment: Name Collection Type:: Clean-Voided Midstream Performed By: #### C BC, BMP #### [address] Complete Blood Count Auto Di ffon 11-04-2021 Basophils (Bld) [#/Vol] 0.0 10*3/uL Normal 0.0-0.2 [facility] Comment on above: Result Comment: PERF ORMED BY: [place] [address] PATHOLOGIST ZYGLO TECHNICIAN CLAIRE ANTHONY M.D. Performed By: #### C BC, BMP #### [address] Basophils/100 WBC (Bld) 0.1 % Normal . [facility] Comment on above: Performed By: #### C BC, BMP #### [address] Eosinophils (Bld) [#/Vol] 0.1 10*3/uL Normal 0.0-0.45 [facility] Comment on above: Performed By: #### C BC, BMP #### [address] Eosinophils/100 WBC (Bld) 1.3 % Normal . [facility] Comment on above: Performed By: #### C BC, BMP #### [address] Erythrocyte distribution width (RBC) [Ratio] 13.0 % Normal 11.9-15.3 [facility] Comment on above: Performed By: #### C BC, BMP #### [address] Hematocrit (Bld) [Volume fraction] 27.5 % Low 34.0-46.4 [facility] Comment on above: Performed By: #### C BC, BMP #### [address] Hemoglobin (Bld) [Mass/Vol] 9.3 g/dL Low 11.8-15.4 [facility] Comment on above: Performed By: #### C BC, BMP #### [address] Lymphocytes (Bld) [#/Vol] 0.5 10*3/uL Low 1.00-4.8 [facility] Comment on above: Performed By: #### C BC, BMP #### [facility] [address] [place] [address] [place] Lymphocytes/100 WBC (Bld) 6.3 % Normal . [facility] Comment on above: Performed By: #### C BC, BMP #### [facility] [address] MCH (RBC) [Entitic mass] 31.1 pg Normal 24.7-34.3 [facility] Comment on above: Performed By: #### C BC, BMP #### [facility] [address] MCV (RBC) [Entitic vol] 92.0 fL Normal 80-100 [facility] Comment on above: Performed By: #### C BC, BMP #### [facility] [address] Mean Corpuscular HGB Conc 33.8 g/dL Normal 32.0-35.0 [facility] Comment on above: Performed By: #### C BC, BMP #### [facility] [address] [place] [address] [place] Monocytes (Bld) [#/Vol] 0.8 10*3/uL Normal 0.0-0.8 [facility] Comment on above: Performed By: #### C BC, BMP #### [facility] [address] [place] [address] [place] Monocytes/100 WBC (Bld) 10.8 % Normal . [facility] Comment on above: Performed By: #### C BC, BMP #### [facility] [address] [place] [address] [place] Neutrophils (Bld) [#/Vol] 5.9 10*3/uL Normal 1.8-7.7 [facility] Comment on above: Performed By: #### C BC, BMP #### [facility] [address] Neutrophils/100 WBC (Bld) 81.5 % Normal . [facility] Comment on above: Performed By: #### C BC, BMP #### [facility] [address] Nucleated RBC/100 WBC (Bld) [Ratio] 0.0 % Normal 0-0.5 [facility] Comment on above: Performed By: #### C BC, BMP #### [facility] [address] Platelet mean volume (Bld) [Entitic vol] 7.4 fL Normal 6.3-10.7 [facility] Comment on above: Performed By: #### C BC, BMP #### [facility] [address] [place] [address] [place] Platelets (Bld) [#/Vol] 135 10*3/uL Low 150-450 [facility] Comment on above: Performed By: #### C BC, BMP #### [facility] [address] RBC (Bld) [#/Vol] 2.99 10*6/uL Low 3.60-5.00 [facility] Comment on above: Performed By: #### C BC, BMP #### [facility] [address] WBC (Bld) [#/Vol] 7.3 10*3/uL Normal 4.5-11.0 [facility] Comment on above: Performed By: #### C BC, BMP #### [facility] [address] Electrolyteson 11-04-2021 Chloride [Moles/Vol] 106 mmol/L Normal 95-114 [facility] Comment on above: Performed By: #### C BC, BMP #### [address] CO2 [Moles/Vol] 25.2 mmol/L Normal 22.0-30.0 [facility] Comment on above: Result Comment: PERF ORMED BY: [place] [address] PATHOLOGIST ZYGLO TECHNICIAN CLAIRE ANTHONY M.D. Performed By: #### C BC, BMP #### [address] Potassium [Moles/Vol] 3.7 mmol/L Normal 3.5-5.1 [facility] Comment on above: Performed By: #### C BC, BMP #### [address] Sodium [Moles/Vol] 137 mmol/L Normal 136-146 [facility] Comment on above: Performed By: #### C BC, BMP #### [address] Complete Blood Count Auto Di ffon 11-03-2021 Basophils (Bld) [#/Vol] 0.0 10*3/uL Normal 0.0-0.2 [facility] Comment on above: Result Comment: PERF ORMED BY: [place] [address] PATHOLOGIST ZYGLO TECHNICIAN CLAIRE ANTHONY M.D. Performed By: #### C BC, BMP #### [address] Basophils/100 WBC (Bld) 0.1 % Normal . [facility] Comment on above: Performed By: #### C BC, BMP #### [address] Eosinophils (Bld) [#/Vol] 0.0 10*3/uL Normal 0.0-0.45 [facility] Comment on above: Performed By: #### C BC, BMP #### [address] Eosinophils/100 WBC (Bld) 0.3 % Normal . [facility] Comment on above: Performed By: #### C BC, BMP #### [address] Erythrocyte distribution width (RBC) [Ratio] 12.8 % Normal 11.9-15.3 [facility] Comment on above: Performed By: #### C BC, BMP #### [facility] [address] Hematocrit (Bld) [Volume fraction] 29.5 % Low 34.0-46.4 [facility] Comment on above: Performed By: #### C BC, BMP #### [address] Hemoglobin (Bld) [Mass/Vol] 9.9 g/dL Low 11.8-15.4 [facility] Comment on above: Performed By: #### C BC, BMP #### [address] Lymphocytes (Bld) [#/Vol] 0.5 10*3/uL Low 1.00-4.8 [facility] Comment on above: Performed By: #### C BC, BMP #### [address] Lymphocytes/100 WBC (Bld) 7.4 % Normal . [facility] Comment on above: Performed By: #### C BC, BMP #### [address] MCH (RBC) [Entitic mass] 30.9 pg Normal 24.7-34.3 [facility] Comment on above: Performed By: #### C BC, BMP #### [address] MCV (RBC) [Entitic vol] 92.1 fL Normal 80-100 [facility] Comment on above: Performed By: #### C BC, BMP #### [address] Mean Corpuscular HGB Conc 33.6 g/dL Normal 32.0-35.0 [facility] Comment on above: Performed By: #### C BC, BMP #### [address] Monocytes (Bld) [#/Vol] 0.7 10*3/uL Normal 0.0-0.8 [facility] Comment on above: Performed By: #### C BC, BMP #### [address] [place] [address] [place] Monocytes/100 WBC (Bld) 10.0 % Normal . [facility] Comment on above: Performed By: #### C BC, BMP #### [facility] [address] Neutrophils (Bld) [#/Vol] 5.8 10*3/uL Normal 1.8-7.7 [facility] Comment on above: Performed By: #### C BC, BMP #### [facility] [address] Neutrophils/100 WBC (Bld) 82.2 % Normal . [facility] Comment on above: Performed By: #### C SANTANA, BMP #### [facility] [address] Nucleated RBC/100 WBC (Bld) [Ratio] 0.0 % Normal 0-0.5 [facility] Comment on above: Performed By: #### C SANTANA, BMP #### [facility] [address] Platelet mean volume (Bld) [Entitic vol] 8.1 fL Normal 6.3-10.7 [facility] Comment on above: Performed By: #### C SANTANA, BMP #### [address] Platelets (Bld) [#/Vol] 153 10*3/uL Normal 150-450 [facility] Comment on above: Performed By: #### C BC, BMP #### [facility] 1111 [place] [address] [place] RBC (Bld) [#/Vol] 3.21 10*6/uL Low 3.60-5.00 [facility] Comment on above: Performed By: #### C BC, BMP #### [facility] 1111 [place] [address] [place] WBC (Bld) [#/Vol] 7.0 10*3/uL Normal 4.5-11.0 [facility] Comment on above: Performed By: #### C BC, BMP #### [address] [place] [address] [place] Electrolyteson 11-03-2021 Chloride [Moles/Vol] 104 mmol/L Normal 95-114 [facility] Comment on above: Performed By: #### C SANTANA, BMP #### [address] CO2 [Moles/Vol] 28.5 mmol/L Normal 22.0-30.0 [facility] Comment on above: Result Comment: PERF ORMED BY: [place] [address] PATHOLOGIST ZYGLO TECHNICIAN CLAIRE ANTHONY M.D. Performed By: #### C SANTANA, BMP #### [address] Potassium [Moles/Vol] 4.2 mmol/L Normal 3.5-5.1 [facility] Comment on above: Performed By: #### Salvatore DILLON, BMP #### [address] Sodium [Moles/Vol] 139 mmol/L Normal 136-146 [facility] Comment on above: Performed By: #### Salvatore DILLON, BMP #### [address] Viet 11-02-2021 L -- ---- Specimen: [id number] Received: 11/02/21 Status: GARRETT Alejo Num: [id number] Spec Type: Surgical Subm Dr: Dylan Gatica Jr, DO Tissues: A Gross Only (BONE/TISSUE RT HIP) Procedures: Level 1 Gross ---- Patient Age/Sex Location Account Attending Physician ---- Isabel Waddell 61/F 4N [id number] Dylan Gatica Jr, DO ---- SPEC NUM: [id number] RECD: 11/02/21 STATUS: GARRETT ALEJO NUM: [id number] FRANCISCA: 11/02/21 [facility] DR: Dylan Gatica Jr, ENTERED: 11/02/21 [facility] DR: MARTIN TYPE: Surgical DEPT: S [...] submitted for microscopic evaluation. Gross exam only. (JUAN/DORA) Microscopic Description Gross examination only. [id number] ---- ---- Specimen: [id number] Received: 11/02/21 Status: GARRETT Alejo Num: [id number] Spec Type: Surgical Subm Dr: Dylan Gatica Jr, DO Tissues: A Gross Only (BONE/TISSUE RT HIP) Procedures: Level 1 Gross ---- Patient: Isabel Waddell [id number] (Continued) ---- Signed (signature on file) Claire Anthony MD 11/02/21 1559 [facility] LeukoReduced RBCon LeukoReduced RBC READY [facility] Type and Screenon 11-02-2021 ABO and Rh group Nom (Bld) Blood group O Rh(D) positive [facility] Comment on above: Order Comment: Trans fuse now? N XR low pelvis w/RT x-table h ipon 11-02-2021 XR low pelvis w/RT x-table hip [facility] [place] [address] XRay Report Signed Patient: Isabel Waddell MR#: [id number] : 1960 Acct:[id number] Age/Sex: 61 / F ADM Date: 11/02/21 Loc: Room: [address] [place] [address] Type: [facility] Attending Dr: Dylan Gatica Jr, DO Ordering [...] Shiva Stafford M.D.11/02/2021 2:41 PM Dictation Location: RADIO-PC-04 Transcribed By: JULIO 11/02/211440 Dictated By: Shiva Stafford II, MD 11/02/21 144 Signed By: 11/02/21 144 Normal [facility] COVID-19 FRon 10-31-2021 SARS-CoV-2 (COVID-19) RNA ANGELA+probe Ql (Unsp spec) Negative Normal Negative [facility] Comment on above: Order Comment: 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 This test has not been FDA [...] is terminated or revoked sooner. PERFORMED BY: [place] [address] PATHOLOGIST ZYGLO TECHNICIAN CLAIRE ANTHONY M.D. Performed By: #### C BC, BMP #### [address] [address] [facility] Basic Metabolic Panelon 11-2 Calcium [Mass/Vol] 9.3 mg/dL Normal 8.2-10.2 [facility] Comment on above: Result Comment: PERF ORMED BY: [address] [address] PATHOLOGIST ZYGLO TECHNICIAN CLAIRE ANTHONY M.D. Performed By: #### C SANTANA, BMP #### [address] [address] [facility] Chloride [Moles/Vol] 104 mmol/L Normal 95-114 [facility] Comment on above: Performed By: #### C BC, BMP #### [facility] [address] CO2 [Moles/Vol] 28.3 mmol/L Normal 22.0-30.0 [facility] Comment on above: Performed By: #### C BC, BMP #### [facility] [address] Creatinine [Mass/Vol] 0.61 mg/dL Normal 0.44-1.03 [facility] Comment on above: Performed By: #### C BC, BMP #### [address] Estimated GFR ( Damon > 60 [facility] Comment on above: Result Comment: GFR estimated reference range: According to KDOQI guidelines, <60 ml/min/1.73m2 is sufficient to diagnose a patient with chronic kidney disease. Performed By: #### C BC, BMP #### [address] Estimated GFR (Non- Am > 60 [facility] Comment on above: Performed By: #### C BC, BMP #### [address] Glucose [Mass/Vol] 100 mg/dL Normal 70-100 [facility] Comment on above: Result Comment: [place] Glucose Reference Range is dependent on time and content of last meal. Glucose of more than 200 mg/dL in a nonstressed, ambulatory subject supports the diagnosis of Diabetes Mellitus. ADA recommended reference range Performed By: #### C BC, BMP #### [facility] [address] Potassium [Moles/Vol] 4.7 mmol/L Normal 3.5-5.1 [facility] Comment on above: Performed By: #### C BC, BMP #### [facility] 1111 [place] [address] [place] Sodium [Moles/Vol] 140 mmol/L Normal 136-146 [facility] Comment on above: Performed By: #### C BC, BMP #### [facility] [address] Urea nitrogen [Mass/Vol] 17 mg/dL Normal 9-23 [facility] Comment on above: Performed By: #### C BC, BMP #### [facility] [address] Complete Blood Count Auto Di ffon 10-15-2021 Basophils (Bld) [#/Vol] 0.0 10*3/uL Normal 0.0-0.2 [facility] Comment on above: Result Comment: PERF ORMED BY: [place] [address] PATHOLOGIST ZYGLO TECHNICIAN CLAIRE ANTHONY M.D. Performed By: #### C BC, BMP #### [address] Basophils/100 WBC (Bld) 0.4 % Normal . [facility] Comment on above: Performed By: #### C BC, BMP #### [facility] [address] Eosinophils (Bld) [#/Vol] 0.1 10*3/uL Normal 0.0-0.45 [facility] Comment on above: Performed By: #### C BC, BMP #### [address] Eosinophils/100 WBC (Bld) 2.1 % Normal . [facility] Comment on above: Performed By: #### C BC, BMP #### [address] Erythrocyte distribution width (RBC) [Ratio] 13.0 % Normal 11.9-15.3 [facility] Comment on above: Performed By: #### C BC, BMP #### [address] Hematocrit (Bld) [Volume fraction] 36.8 % Normal 34.0-46.4 [facility] Comment on above: Performed By: #### C BC, BMP #### [facility] [address] Hemoglobin (Bld) [Mass/Vol] 12.4 g/dL Normal 11.8-15.4 [facility] Comment on above: Performed By: #### C BC, BMP #### [facility] [address] Lymphocytes (Bld) [#/Vol] 0.5 10*3/uL Low 1.00-4.8 [facility] Comment on above: Performed By: #### C BC, BMP #### [facility] [address] Lymphocytes/100 WBC (Bld) 18.8 % Normal . [facility] Comment on above: Performed By: #### C BC, BMP #### [address] MCH (RBC) [Entitic mass] 31.3 pg Normal 24.7-34.3 [facility] Comment on above: Performed By: #### C BC, BMP #### [address] MCV (RBC) [Entitic vol] 92.8 fL Normal 80-100 [facility] Comment on above: Performed By: #### C BC, BMP #### [address] Mean Corpuscular HGB Conc 33.7 g/dL Normal 32.0-35.0 [facility] Comment on above: Performed By: #### C BC, BMP #### [facility] 1111 [place] [address] [place] Monocytes (Bld) [#/Vol] 0.3 10*3/uL Normal 0.0-0.8 [facility] Comment on above: Performed By: #### C BC, BMP #### [place] [address] [place] Monocytes/100 WBC (Bld) 10.8 % Normal . [facility] Comment on above: Performed By: #### C BC, BMP #### [facility] 1111 [place] [address] [place] Neutrophils (Bld) [#/Vol] 1.9 10*3/uL Normal 1.8-7.7 [facility] Comment on above: Performed By: #### C SANTANA, BMP #### [facility] 1111 [place] [id number] [place] Neutrophils/100 WBC (Bld) 67.9 % Normal . [facility] Comment on above: Performed By: #### C SANTANA, BMP #### [facility] 1111 [place] [address] [place] Nucleated RBC/100 WBC (Bld) [Ratio] 0.1 % Normal 0-0.5 [facility] Comment on above: Performed By: #### C SANTANA, BMP #### [facility] [address] Platelet mean volume (Bld) [Entitic vol] 7.4 fL Normal 6.3-10.7 [facility] Comment on above: Performed By: #### C SANTANA, BMP #### [facility] 1111 [place] [address] [place] Platelets (Bld) [#/Vol] 198 10*3/uL Normal 150-450 [facility] Comment on above: Performed By: #### C SANTANA, BMP #### [facility] 1111 [place] [address] [place] RBC (Bld) [#/Vol] 3.97 10*6/uL Normal 3.60-5.00 [facility] Comment on above: Performed By: #### C SANTANA, BMP #### [facility] 1111 [place] [address] [place] WBC (Bld) [#/Vol] 2.8 10*3/uL Low 4.5-11.0 [facility] Comment on above: Performed By: #### C SANTANA, BMP #### [facility] 1111 [place] [address] [place] Dipstick and Microscopicon 1 12-15-2020 Appearance (U) Turbid Critically abnormal Clear [facility] Comment on above: Order Comment: Name Collection Type:: Clean-Voided Midstream Performed By: #### A DDONUAPLUS #### [facility] [address] [place] [address] [place] Bacteria,Urine None Seen Normal None Seen [facility] Comment on above: Order Comment: Name Collection Type:: Clean-Voided Midstream Performed By: #### A DDONUAPLUS #### [facility] [address] [place] [address] [place] Bilirubin,Urine Negative Normal Negative [facility] Comment on above: Order Comment: Name Collection Type:: Clean-Voided Midstream Performed By: #### A DDONUAPLUS #### [place] [address] [place] Color (U) Yellow Normal Yellow [facility] Comment on above: Order Comment: Name Collection Type:: Clean-Voided Midstream Performed By: #### A DDONUAPLUS #### [place] [address] [place] Glucose Ql (U) Normal Normal Normal [facility] Comment on above: Order Comment: Name Collection Type:: Clean-Voided Midstream Performed By: #### A DDONUAPLUS #### [place] [address] [place] Hyaline Casts,Urine None Seen Normal 0-8 [facility] Comment on above: Order Comment: Name Collection Type:: Clean-Voided Midstream Result Comment: PERF ORMED BY: [place] [address] PATHOLOGIST ZYGLO TECHNICIAN CLAIRE ANTHONY M.D. Performed By: #### A DDONUAPLUS #### [facility] [address] [place] [address] [place] Ketones Ql (U) Negative Normal Negative [facility] Comment on above: Order Comment: Name Collection Type:: Clean-Voided Midstream Performed By: #### A DDONUAPLUS #### [facility] [address] [place] [address] [place] Leukocyte esterase Test strip Ql (U) 1+ High Negative [facility] Comment on above: Order Comment: Name Collection Type:: Clean-Voided Midstream Performed By: #### A DDONUAPLUS #### [facility] 1111 [place] [address] [place] Nitrite,Urine Negative Normal Negative [facility] Comment on above: Order Comment: Name Collection Type:: Clean-Voided Midstream Performed By: #### A DDONUAPLUS #### [place] [address] [place] Occult Blood,Urine Negative Normal Negative [facility] Comment on above: Order Comment: Name Collection Type:: Clean-Voided Midstream Result Comment: PERF ORMED BY: [place] [address] PATHOLOGIST ZYGLO TECHNICIAN CLAIRE ANTHONY M.D. Performed By: #### A DDONUAPLUS #### [address] pH (U) 7.5 [pH] Normal 5.0-9.0 [facility] Comment on above: Order Comment: Name Collection Type:: Clean-Voided Midstream Performed By: #### A DDONUAPLUS #### [facility] [address] [place] [address] [place] Protein,Urine Negative Normal Negative [facility] Comment on above: Order Comment: Name Collection Type:: Clean-Voided Midstream Performed By: #### A DDONUAPLUS #### [place] [address] [place] RBC,Urine 1-2 Normal 0-4 [facility] Comment on above: Order Comment: Name Collection Type:: Clean-Voided Midstream Performed By: #### A DDONUAPLUS #### [facility] [address] [place] [address] [place] Specificy [place],Urine 1.017 Normal 1.001-1.030 [facility] Comment on above: Order Comment: Name Collection Type:: Clean-Voided Midstream Performed By: #### A DDONUAPLUS #### [place] [address] [place] Squamous Epithelial Cell,Urine None Seen Normal 0-2 [facility] Comment on above: Order Comment: Name Collection Type:: Clean-Voided Midstream Performed By: #### A DDONUAPLUS #### [facility] [address] [place] [address] Urobilinogen,Urine Normal Normal Normal [facility] Comment on above: Order Comment: Name Collection Type:: Clean-Voided Midstream Performed By: #### A DDONUAPLUS #### [address] WBC,Urine 3-4 Normal 0-4 [facility] Comment on above: Order Comment: Name Collection Type:: Clean-Voided Midstream Performed By: #### A DDONUAPLUS #### [address] PST Type and Screenon 2020 ABO and Rh group Nom (Bld) Blood group O Rh(D) positive Normal [facility] Comment on above: Order Comment: Date of Surgery: [id number] # of PRBC units on hold?: 2 Result Comment: PERF ORMED BY: [place] [address] PATHOLOGIST ZYGLO TECHNICIAN CLAIRE ANTHONY M.D. XR hip RT min 2V(w/wo pelvis )*on 10-15-2021 XR hip RT min 2V(w/wo pelvis)* [facility] [place] [address] [place] [address] XRay Report Signed Patient: Isabel Waddell MR#: [id number] : 1960 Acct:[id number] Age/Sex: 61 / F ADM Date: 10/15/21 Loc: [facility]: [facility] Attending Dr: Dylan Gatica Jr, DO [...] Yusef Fernandez M.D.10/15/2021 2:21 PM Dictation Location: [place] [address] Transcribed By: [facility] 10/15/21 142 Dictated By: Yusef Fernandez DO 10/15/21 142 Signed By: 10/15/21 142 Normal [facility] XR tibia/fibula BIon 021 XR tibia/fibula BI [facility] [place] [address] XRay Report Signed Patient: Isabel Waddell MR#: [id number] : 1960 Acct:[id number] Age/Sex: 61 / F ADM Date: 08/22/21 Loc: [facility] Room: [facility] Attending Dr: Dylan Gatica Jr, DO Ordering Provider: Dylan Gatica Jr, DO Date of Service: 08/22/21 XR/XR femur BI: PST ([id number]) XR/XR tibia/fibula BI: PST Copies to: Dylan [...] Rai M.D.08/22/2021 3:17 PM Dictation Location: [facility] Transcribed By: [facility] 08/22/211516 Dictated By: Mckayla Rai MD 08/22/211512 Signed By: 08/22/211516 [facility] Basic Metabolic Panelon 10-0 Calcium [Mass/Vol] 9.1 mg/dL Normal 8.2-10.2 [facility] Comment on above: Result Comment: PERF ORMED BY: [place] [address] PATHOLOGIST ZYGLO TECHNICIAN CLAIRE ANTHONY M.D. Performed By: #### C BC, BMP #### [address] Chloride [Moles/Vol] 102 mmol/L Normal 95-114 [facility] Comment on above: Performed By: #### C BC, BMP #### [place] [address] [place] CO2 [Moles/Vol] 27.8 mmol/L Normal 22.0-30.0 [facility] Comment on above: Performed By: #### C BC, BMP #### [address] Creatinine [Mass/Vol] 0.63 mg/dL Normal 0.44-1.03 [facility] Comment on above: Performed By: #### C BC, BMP #### [place] [address] [place] Estimated GFR ( Damon > 60 [facility] Comment on above: Result Comment: GFR estimated reference range: According to KDOQI guidelines, <60 ml/min/1.73m2 is sufficient to diagnose a patient with chronic kidney disease. Performed By: #### C BC, BMP #### [place] [address] [place] Estimated GFR (Non- Am > 60 [facility] Comment on above: Performed By: #### C BC, BMP #### [place] [address] [place] Glucose [Mass/Vol] 101 mg/dL High 70-100 [facility] Comment on above: Result Comment: [facility] Glucose Reference Range is dependent on time and content of last meal. Glucose of more than 200 mg/dL in a nonstressed, ambulatory subject supports the diagnosis of Diabetes Mellitus. ADA recommended reference range Performed By: #### C BC, BMP #### [facility] [address] Potassium [Moles/Vol] 4.2 mmol/L Normal 3.5-5.1 [facility] Comment on above: Performed By: #### C BC, BMP #### [facility] [address] Sodium [Moles/Vol] 138 mmol/L Normal 136-146 [facility] Comment on above: Performed By: #### C BC, BMP #### [facility] [address] Urea nitrogen [Mass/Vol] 18 mg/dL Normal 9-23 [facility] Comment on above: Performed By: #### C BC, BMP #### [address] Complete Blood Count Auto Di ffon 08-20-2021 Basophils (Bld) [#/Vol] 0.0 10*3/uL Normal 0.0-0.2 [facility] Comment on above: Result Comment: PERF ORMED BY: [place] [address] PATHOLOGIST ZYGLO TECHNICIAN CLAIRE ANTHONY M.D. Performed By: #### C BC, BMP #### [place] [address] [place] Basophils/100 WBC (Bld) 0.1 % Normal . [facility] Comment on above: Performed By: #### C BC, BMP #### [facility] [address] Eosinophils (Bld) [#/Vol] 0.1 10*3/uL Normal 0.0-0.45 [facility] Comment on above: Performed By: #### C BC, BMP #### [address] Eosinophils/100 WBC (Bld) 2.5 % Normal . [facility] Comment on above: Performed By: #### C BC, BMP #### [facility] [address] Erythrocyte distribution width (RBC) [Ratio] 13.6 % Normal 11.9-15.3 [facility] Comment on above: Performed By: #### C BC, BMP #### [address] Hematocrit (Bld) [Volume fraction] 34.5 % Normal 34.0-46.4 [facility] Comment on above: Performed By: #### C BC, BMP #### [address] Hemoglobin (Bld) [Mass/Vol] 11.9 g/dL Normal 11.8-15.4 [facility] Comment on above: Performed By: #### C BC, BMP #### [address] Lymphocytes (Bld) [#/Vol] 0.6 10*3/uL Low 1.00-4.8 [facility] Comment on above: Performed By: #### C BC, BMP #### [address] Lymphocytes/100 WBC (Bld) 15.9 % Normal . [facility] Comment on above: Performed By: #### C BC, BMP #### [address] MCH (RBC) [Entitic mass] 31.3 pg Normal 24.7-34.3 [facility] Comment on above: Performed By: #### C BC, BMP #### [address] MCV (RBC) [Entitic vol] 90.5 fL Normal 80-100 [facility] Comment on above: Performed By: #### C BC, BMP #### [address] Mean Corpuscular HGB Conc 34.6 g/dL Normal 32.0-35.0 [facility] Comment on above: Performed By: #### C BC, BMP #### [place] [address] [place] Monocytes (Bld) [#/Vol] 0.5 10*3/uL Normal 0.0-0.8 [facility] Comment on above: Performed By: #### C BC, BMP #### [place] [address] [place] Monocytes/100 WBC (Bld) 13.2 % Normal . [facility] Comment on above: Performed By: #### C SANTANA, BMP #### [place] [address] [place] Neutrophils (Bld) [#/Vol] 2.7 10*3/uL Normal 1.8-7.7 [facility] Comment on above: Performed By: #### C SANTANA, BMP #### [place] [address] [place] Neutrophils/100 WBC (Bld) 68.3 % Normal . [facility] Comment on above: Performed By: #### C SANTANA, BMP #### [place] [address] [place] Nucleated RBC/100 WBC (Bld) [Ratio] 0.1 % Normal 0-0.5 [facility] Comment on above: Performed By: #### C BC, BMP #### [place] [address] [place] Platelet mean volume (Bld) [Entitic vol] 7.8 fL Normal 6.3-10.7 [facility] Comment on above: Performed By: #### C BC, BMP #### [place] [id number] [place] Platelets (Bld) [#/Vol] 182 10*3/uL Normal 150-450 [facility] Comment on above: Performed By: #### C BC, BMP #### [place] [id number] [place] RBC (Bld) [#/Vol] 3.81 10*6/uL Normal 3.60-5.00 [facility] Comment on above: Performed By: #### C BC, BMP #### [address] WBC (Bld) [#/Vol] 4.0 10*3/uL Low 4.5-11.0 [facility] Comment on above: Performed By: #### C BC, BMP #### [address] Dipstick and Microscopicon 1 Appearance (U) Turbid Critically abnormal Clear [facility] Comment on above: Order Comment: Comme nt urine C S if indicated by UA Name Collection Type:: Clean-Voided Midstream Performed By: #### A DDONUAPLUS #### [address] Bacteria,Urine None Seen Normal None Seen [facility] Comment on above: Order Comment: Comme nt urine C S if indicated by UA Name Collection Type:: Clean-Voided Midstream Performed By: #### A DDONUAPLUS #### [address] Bilirubin,Urine Negative Normal Negative [facility] Comment on above: Order Comment: Comme nt urine C S if indicated by UA Name Collection Type:: Clean-Voided Midstream Performed By: #### A DDONUAPLUS #### [address] Color (U) Yellow Normal Yellow [facility] Comment on above: Order Comment: Comme nt urine C S if indicated by UA Name Collection Type:: Clean-Voided Midstream Performed By: #### A DDONUAPLUS #### [address] Glucose Ql (U) Normal Normal Normal [facility] Comment on above: Order Comment: Comme nt urine C S if indicated by UA Name Collection Type:: Clean-Voided Midstream Performed By: #### A DDONUAPLUS #### [address] Hyaline Casts,Urine 0-8 Normal 0-8 [facility] Comment on above: Order Comment: Comme nt urine C S if indicated by UA Name Collection Type:: Clean-Voided Midstream Result Comment: PERF ORMED BY: [place] [address] PATHOLOGIST ZYGLO TECHNICIAN CLAIRE ANTHONY M.D. Performed By: #### A DDONUAPLUS #### [address] Ketones Ql (U) Negative Normal Negative [facility] Comment on above: Order Comment: Comme nt urine C S if indicated by UA Name Collection Type:: Clean-Voided Midstream Performed By: #### A DDONUAPLUS #### [address] Leukocyte esterase Test strip Ql (U) 3+ High Negative [facility] Comment on above: Order Comment: Comme nt urine C S if indicated by UA Name Collection Type:: Clean-Voided Midstream Performed By: #### A DDONUAPLUS #### [address] Nitrite,Urine Negative Normal Negative [facility] Comment on above: Order Comment: Comme nt urine C S if indicated by UA Name Collection Type:: Clean-Voided Midstream Performed By: #### A DDONUAPLUS #### [address] Occult Blood,Urine Negative Normal Negative [facility] [facility] Comment on above: Order Comment: Comme nt urine C S if indicated by UA Name Collection Type:: Clean-Voided Midstream Result Comment: PERF ORMED BY: [place] [address] PATHOLOGIST ZYGLO TECHNICIAN CLAIRE ANTHONY M.D. Performed By: #### A DDONUAPLUS #### [facility] [address] [place] [address] pH (U) 8.5 [pH] Normal 5.0-9.0 [facility] Comment on above: Order Comment: Comme nt urine C S if indicated by UA Name Collection Type:: Clean-Voided Midstream Performed By: #### A DDONUAPLUS #### [facility] [address] [place] [address] Protein,Urine Negative Normal Negative [facility] Comment on above: Order Comment: Comme nt urine C S if indicated by UA Name Collection Type:: Clean-Voided Midstream Performed By: #### A DDONUAPLUS #### [facility] [address] [place] [address] RBC,Urine 3-4 Normal 0-4 [facility] Comment on above: Order Comment: Comme nt urine C S if indicated by UA Name Collection Type:: Clean-Voided Midstream Performed By: #### A DDONUAPLUS #### [facility] [address] [place] [address] Specificy [place],Urine 1.016 Normal 1.001-1.030 [facility] Comment on above: Order Comment: Comme nt urine C S if indicated by UA Name Collection Type:: Clean-Voided Midstream Performed By: #### A DDONUAPLUS #### [facility] [address] [place] [address] Squamous Epithelial Cell,Urine 0-1 Normal 0-2 [facility] Comment on above: Order Comment: Comme nt urine C S if indicated by UA Name Collection Type:: Clean-Voided Midstream Performed By: #### A DDONUAPLUS #### [facility] [address] [place] [address] Urobilinogen,Urine Normal Normal Normal [facility] Comment on above: Order Comment: Comme nt urine C S if indicated by UA Name Collection Type:: Clean-Voided Midstream Performed By: #### A DDONUAPLUS #### [facility] [address] [place] [address] WBC,Urine 20-49 High 0-4 [facility] Comment on above: Order Comment: Comme nt urine C S if indicated by UA Name Collection Type:: Clean-Voided Midstream Performed By: #### A DDONUAPLUS #### [place] [address] [place] ECG 12 lead ECGon 08-20-2021 [address] [facility] [address] [place] [address] [place] [address] Electrocardiograph Report Signed Patient: Isabel Waddell MR#: [id number] : 1960 Acct:[id number] Age/Sex: 61 / F ADM Date: 08/20/21 Loc: PS Room: [facility] Attending Dr: Dylan Gatica Jr, DO [...] When compared with ECG of 06-SEP-2020 08:27, IN interval has decreased T wave amplitude has increased in Inferior leads Confirmed by YUSEF GIRALDO DO ([id number]) on 08/20/2021 4:50:03 PM Referred By: LAURA Electronically Signed By:YUSEF GIRALDO DO Transcribed By: MUS Signed By Yusef Giraldo DO 08/20 1650 [facility] PST Type and Screenon 2020 ABO and Rh group Nom (Bld) Blood group O Rh(D) positive [facility] Comment on above: Order Comment: Date of Surgery: [id number] # of PRBC units on hold?: 2 Result Comment: PERF ORMED BY: [place] [address] PATHOLOGIST ZYGLO TECHNICIAN CLAIRE ANTHONY M.D. Urine Cultureon 08-20-2021 Bacteria identified Cx Nom (U) Comment do C S if indicated by UA ORGANISM: Staphylococcus aureus (O:STAAUR) [place] Count 30,000 Aerobic MARELY Charge (PC45) --- [...] RESISTANT TO ALL B-LACTAM DRUGS. PERFORMED BY: [place] [address] PATHOLOGIST ZYGLO TECHNICIAN CLAIRE ANTHONY M.D. [facility] Comment on above: Performed By: #### C UU #### [address] Cult,Urineon 07-08-2021 Cult,Urine Specimen Description .URINE Special Requests NOT REPORTED Culture NO SIGNIFICANT GROWTH Report Status FINAL 07/08/2021 [facility] Comment on above: Performed By: #### U RC #### [facility] [address] [place] [address] Sociology Instructor: Rei Jules MD [facility] [address] [place] [address] Sociology Instructor: Jacob Campos MD CBC Auto DifferentialOrdered By: Mayra Michel on 07-07-2021 [employer] [facility] # 0.70 High [facility] Work Phone: Absolute Immature Granulocyte NOT REPORTED [employer] Work Phone: Absolute Lymph # 0.40 Low [facility] Work Phone: Absolute [place] # 0.50 [facility] Work Phone: Basophils (Bld) [#/Vol] 0.00 10*3/uL [employer] Work Phone: Basophils/100 WBC (Bld) 1 % 0 - 2 % [employer] Work Phone: Differential Type YES [facility] Work Phone: Eosinophils/100 WBC (Bld) 14 % High 0 - 5 % [employer] Work Phone: Hematocrit (Bld) [Volume fraction] 40.1 % 36 - 46 % [employer] Work Phone: Hemoglobin.gastrointes tinal spec 1 Ql (Stl) 13.8 g/dL 12.0 - 16.0 g/dL [employer] Phone: Immature Granulocytes NOT REPORTED 0 % [facility] Work Phone: Interpretation and review of laboratory results Abnormal [employer] Phone: Lymphocytes/100 WBC (Bld) 8 % Low 15 - 40 % [employer] Work Phone: MCH (RBC) [Entitic mass] 30.7 pg 26 - 34 pg [employer] Work Phone: MCHC (RBC) [Mass/Vol] 34.5 g/dL 31 - 37 g/dL [facility] Work Phone: MCV (RBC) [Entitic vol] 89.1 fL 80 - 100 fL [employer] Work Phone: Monocytes/100 WBC (Bld) 10 % High 4 - 8 % [employer] Work Phone: NRBC Automated NOT REPORTED per 100 WBC [employer] [facility] Work Phone: Platelet distribution width (Bld) [Ratio] 13.0 % 12.1 - 15.2 % [employer] Phone: Platelet Estimate NOT REPORTED [employer] Phone: Platelet mean volume (Bld) [Entitic vol] NOT REPORTED 6.0 - 12.0 fL [employer] Phone: Platelets (Bld) [#/Vol] 157 10*3/uL [employer] Phone: RBC (Bld) [#/Vol] 4.50 10*6/uL 4.0 - 5.2 m/uL [employer] Phone: RBC (Bld) [#/Vol] NOT REPORTED [employer] Phone: Segmented neutrophils/100 WBC (Bld) 67 % 47 - 75 % [employer] Phone: Segs Absolute 3.40 [employer] Work Phone: WBC (Bld) [#/Vol] 5.1 10*3/uL [employer] Phone: WBC (Bld) [#/Vol] NOT REPORTED [employer] Phone: [employer] Phone: CBC with Diffon 07-07-2021 Abs. Basophil 0.00 k/uL Normal 0.0-0.2 [facility] Comment on above: Performed By: #### C MIAN, CP #### [facility] [address] [place] [address] Sociology Instructor: Jacob Campos MD Abs.Neutrophil (Seg) 3.40 k/uL Normal 2.5-7.0 [facility] Comment on above: Performed By: #### C MIAN, CP #### [facility] [address] [place] [address] Sociology Instructor: Jacob Campos MD Auto Diff Performed YES Normal [facility] Comment on above: Performed By: #### C DP, CP #### [facility] [address] [place] [address] Sociology Instructor: Jacob Campos MD Basophils/100 WBC (Bld) 1 % Normal 0-2 [facility] Comment on above: Performed By: #### C DP, CP #### [facility] [address] [place], [place] [phone] Sociology Instructor: Jacob Campos MD Eosinophils (Bld) [#/Vol] 0.70 10*3/uL High 0.0-0.4 [facility] Comment on above: Performed By: #### C DP, CP #### [facility] [address] [place] [phone] Sociology Instructor: Jacob Campos MD Eosinophils/100 WBC (Bld) 14 % High 0-5 [facility] Comment on above: Performed By: #### C DP, CP #### [facility] [address] [place] [address] Sociology Instructor: Jacob Campos MD Erythrocyte distribution width (RBC) [Ratio] 13.0 % Normal 12.1-15.2 [facility] Comment on above: Performed By: #### C DP, CP #### [facility] [address] [place] [address] Sociology Instructor: Jacob Campos MD Hematocrit (Bld) [Volume fraction] 40.1 % Normal 36-46 [facility] Comment on above: Performed By: #### C DP, CP #### [facility] [address] [place] [address] Sociology Instructor: Jacob Campos MD Hemoglobin (Bld) [Mass/Vol] 13.8 g/dL Normal 12.0-16.0 [facility] Comment on above: Performed By: #### C DP, CP #### [facility] [address] [place] [address] Sociology Instructor: Jacob Campos MD Lymphocytes (Bld) [#/Vol] 0.40 10*3/uL Low 1.0-4.8 [facility] Comment on above: Performed By: #### C DP, CP #### [facility] [address] [place] [address] Sociology Instructor: Jacob Campos MD Lymphocytes/100 WBC (Bld) 8 % Low 15-40 [facility] Comment on above: Performed By: #### C DP, CP #### [facility] [address] [place] [phone] Sociology Instructor: Jacob Campos MD MCH (RBC) [Entitic mass] 30.7 pg Normal 26-34 [facility] Comment on above: Performed By: #### C DP, CP #### [facility] [address] [place] [address] Sociology Instructor: Jacob Campos MD MCHC (RBC) [Mass/Vol] 34.5 g/dL Normal 31-37 [facility] Comment on above: Performed By: #### C DP, CP #### [facility] [address] [place] [phone] Sociology Instructor: Jacob Campos MD MCV (RBC) [Entitic vol] 89.1 fL Normal 80-100 [facility] Comment on above: Performed By: #### C DP, CP #### [facility] [address] [place] [address] Sociology Instructor: Jacob Campos MD Monocytes (Bld) [#/Vol] 0.50 10*3/uL Normal 0.0-1.0 [facility] Comment on above: Performed By: #### C DP, CP #### [facility] [address] [place] [address] Sociology Instructor: Jacob Campos MD Monocytes/100 WBC (Bld) 10 % High 4-8 [facility] Comment on above: Performed By: #### C DP, CP #### [facility] [address] [place] [address] Sociology Instructor: Jacob Campos MD Neutrophil (Seg) 67 % Normal 47-75 [facility] Comment on above: Performed By: #### C DP, CP #### [facility] [address] [place] [address] Sociology Instructor: Jacob Campos MD Platelets (Bld) [#/Vol] 157 10*3/uL Normal 140-450 [facility] Comment on above: Performed By: #### C DP, CP #### [facility] [address] [place] [address] Sociology Instructor: Jacob Campos MD RBC (Bld) [#/Vol] 4.50 10*6/uL Normal 4.0-5.2 [facility] Comment on above: Performed By: #### C DP, CP #### [facility] [address] [place] [address] Sociology Instructor: Jacob Campos MD WBC (Bld) [#/Vol] 5.1 10*3/uL Normal 3.5-11.0 [facility] Comment on above: Performed By: #### C DP, CP #### [facility] [address] [place] [address] Sociology Instructor: Jacob Campos MD Abs.Imm.Granulocyte NOT REPORTED Normal 0.00-0.30 [facility] Comment on above: Performed By: #### C DP, CP #### [facility] [address] [place] [address] Sociology Instructor: Jacob Campos MD Immature Granulocyte NOT REPORTED Normal [address] [facility] Comment on above: Performed By: #### C DP, CP #### [facility] [address] [place], [place] [phone] Sociology Instructor: Jacob Campos MD MPV NOT REPORTED Normal 6.0-12.0 [facility] Comment on above: Performed By: #### C DP, CP #### [facility] [address] [place], [place] [phone] Sociology Instructor: Jacob Campos MD NRBC Automated NOT REPORTED Normal [facility] Comment on above: Performed By: #### C DP, CP #### [facility] [address] [place] [address] Sociology Instructor: Jacob Campos MD Platelet Estimate NOT REPORTED Normal [facility] Comment on above: Performed By: #### C DP, CP #### [facility] [address] [place], [place] [phone] Sociology Instructor: Jacob Campos MD RBC morphology finding Nom (Bld) NOT REPORTED Normal [facility] Comment on above: Performed By: #### C DP, CP #### [facility] [address] [place] [address] Sociology Instructor: Jacob Campos MD WBC Morphology NOT REPORTED Normal [facility] Comment on above: Performed By: #### C DP, CP #### [facility] [address] [place], [place] [phone] Sociology Instructor: Jacob Campos MD Comp Metabolic Profon 2020 (cont.) Normal [facility] Comment on above: Result Comment: Aver age GFR for 60-69 years old: 85 mL/min/1.73sq m Chronic Kidney Disease: <60 mL/min/1.73sq m Kidney failure: <15 mL/min/1.73sq m eGFR calculated using average adult body mass. Additional eGFR calculator available at: http://www.globalrp.Cycell/multiple_crcl_2012.htm Performed By: #### C DP, CP #### [facility] [address] [place], [place] [phone] Sociology Instructor: Jacob Campos MD Albumin [Mass/Vol] 3.9 g/dL Normal 3.5-5.2 [facility] Comment on above: Performed By: #### C DP, CP #### [facility] [address] [place], [place] [phone] Sociology Instructor: Jacob Campos MD Alkaline Phos 94 U/L Normal 35-104 [facility] Comment on above: Performed By: #### C DP, CP #### [facility] [address] [place], [place] [address] Sociology Instructor: Jacob Campos MD ALT [Catalytic activity/Vol] 31 U/L Normal 5-33 [facility] Comment on above: Performed By: #### C DP, CP #### [facility] [address] [place], [place] [phone] Sociology Instructor: Jacob Campos MD Anion gap [Moles/Vol] 10 mmol/L Normal 9-17 [facility] Comment on above: Performed By: #### C DP, CP #### [facility] [address] [place], [place] [phone] Sociology Instructor: Jacob Campos MD AST [Catalytic activity/Vol] 28 U/L Normal <32 [facility] Comment on above: Performed By: #### C DP, CP #### [facility] [address] [place], [place] [phone] Sociology Instructor: Jacob Campos MD Bilirubin [Mass/Vol] 0.46 mg/dL Normal 0.30-1.20 [facility] Comment on above: Performed By: #### C DP, CP #### [facility] [address] [place] [address] Sociology Instructor: Jacob Campos MD BUN/CRE Ratio 27 High 9-20 [facility] Comment on above: Performed By: #### C DP, CP #### [facility] [address] [place], [place] [phone] Sociology Instructor: Jacob Campos MD Calcium [Mass/Vol] 9.7 mg/dL Normal 8.6-10.4 [facility] Comment on above: Performed By: #### C DP, CP #### [facility] [address] [place] [address] Sociology Instructor: Jacob Campos MD Chloride [Moles/Vol] 107 mmol/L Normal 98-107 [facility] Comment on above: Performed By: #### C DP, CP #### [facility] [address] [place] [address] Sociology Instructor: Jacob Campos MD CO2 [Moles/Vol] 25 mmol/L Normal 20-31 [facility] Comment on above: Performed By: #### C DP, CP #### [facility] [address] [place] [address] Sociology Instructor: Jacob Campos MD Creatinine [Mass/Vol] 0.60 mg/dL Normal 0.50-0.90 [facility] Comment on above: Performed By: #### C DP, CP #### [facility] [address] [place] [address] Sociology Instructor: Jacob Campos MD GFR, Amer >60 Normal >60 [facility] Comment on above: Performed By: #### C DP, CP #### [facility] [address] [place] [address] Sociology Instructor: Jacob Campos MD GFR,non Amer >60 Normal >60 [facility] Comment on above: Performed By: #### C DP, CP #### [facility] [address] [place], [place] [phone] Sociology Instructor: Jacob Campos MD Glucose [Mass/Vol] 122 mg/dL High 70-99 [facility] Comment on above: Performed By: #### C DP, CP #### [facility] [address] [place] [address] Sociology Instructor: Jacob Campos MD Potassium [Moles/Vol] 3.8 mmol/L Normal 3.7-5.3 [facility] Comment on above: Performed By: #### C DP, CP #### [facility] [address] [place], [place] [phone] Sociology Instructor: Jacob Campos MD Protein [Mass/Vol] 6.9 g/dL Normal 6.4-8.3 [facility] Comment on above: Performed By: #### C DP, CP #### [facility] [address] [place] [address] Sociology Instructor: Jacob Campos MD Sodium [Moles/Vol] 142 mmol/L Normal 135-144 [facility] Comment on above: Performed By: #### C DP, CP #### [facility] [address] [place] [address] Sociology Instructor: Jacob Campos MD Urea nitrogen [Mass/Vol] 16 mg/dL Normal 8-23 [facility] Comment on above: Performed By: #### C DP, CP #### [facility] [address] [place] [address] Sociology Instructor: Jacob Campos MD Albumin/Glob Ratio NOT REPORTED Normal 1.0-2.5 [facility] Comment on above: Performed By: #### C DP, CP #### [facility] [address] [place], [place] [phone] Sociology Instructor: Jacob Campos MD Staging: NOT REPORTED Normal [facility] Comment on above: Performed By: #### C DP, CP #### [facility] [address] [place] [address] Sociology Instructor: Jacob Campos MD Comprehensive Metabolic Pane lOrdered By: Mayra Michel on 07-07-2021 Albumin [Mass/Vol] 3.9 g/dL 3.5 - 5.2 g/dL [employer] Phone: Albumin/Globulin Ratio NOT REPORTED [employer] Phone: ALP (Bld) [Catalytic activity/Vol] 94 U/L 35 - 104 U/L [employer] Phone: ALT [Catalytic activity/Vol] 31 U/L 5 - 33 U/L [employer] Phone: Anion gap [Moles/Vol] 10 mmol/L 9 - 17 mmol/L [employer] Phone: AST [Catalytic activity/Vol] 28 U/L <32 [employer] Phone: Bilirubin [Mass/Vol] 0.46 mg/dL 0.30 - 1.20 mg/dL [employer] Phone: Calcium [Mass/Vol] 9.7 mg/dL 8.6 - 10. 4 mg/dL [employer] Phone: Chloride [Moles/Vol] 107 mmol/L 98 - 10 7 mmol/L [employer] Phone: CO2 [Moles/Vol] 25 mmol/L 20 - 31 mmol/L [employer] Phone: Creatinine [Mass/Vol] 0.6 mg/dL 0.50 - 0.90 mg/dL [employer] Phone: Free PSA/Total PSA [Mass fraction] 6.9 g/dL 6.4 - 8.3 g/dL [employer] Phone: GFR >60 >60 mL/min [employer] Phone: GFR Non- >60 >60 mL/min [employer] Phone: GFR/1.73 sq M.predicted MDRD (S/P/Bld) [Vol rate/Area] [employer] Phone: Comment on above: Average GFR for 60-6 9 years old: 85 mL/min/1.73sq m Chronic Kidney Disease: <60 mL/min/1.73sq m Kidney failure: <15 mL/min/1.73sq m eGFR calculated using average adult body mass. Additional eGFR calculator available at: http://www.Zyante/multiple_crcl_2012.htm GFR/1.73 sq M.predicted MDRD (S/P/Bld) [Vol rate/Area] NOT REPORTED [employer] Phone: Glucose [Mass/Vol] 122 mg/dL High 70 - 99 mg/dL [employer] Phone: Interpretation and review of laboratory results Abnormal [employer] Phone: Potassium [Moles/Vol] 3.8 mmol/L 3.7 - 5.3 mmol/L [employer] Phone: Sodium [Moles/Vol] 142 mmol/L 135 - 144 mmol/L [employer] Phone: Urea nitrogen (BldV) [Mass/Vol] 16 mg/dL 8 - 23 mg/dL [employer] Phone: Urea nitrogen/Creatinine (Bld) [Mass ratio] 27 High [employer] Phone: [employer] Phone: Microscopic UrinalysisOrdere d By: Mayra Michel on 07-07-2021 - [employer] Phone: Amorphous, UA NOT REPORTED None [facility] Work Phone: Bacteria, UA 2+ Abnormal None [employer] Phone: Casts UA NOT REPORTED /LPF [facility] Work Phone: Crystals, UA NOT REPORTED None /HPF [facility] Work Phone: Epithelial Cells UA 5 TO 10 /HPF [facility] Work Phone: Interpretation and review of laboratory results Abnormal [facility] Work Phone: Mucus, UA 1+ Abnormal None [facility] Work Phone: Other Observations UA NOT REPORTED NOT REQ. M [facility] Work Phone: RBC, UA 5 TO 10 [facility] Work Phone: Renal Epithelial, UA NOT REPORTED 0 /HPF [facility] Work Phone: Trichomonas, UA NOT REPORTED None [facility] Work Phone: WBC, UA 2 TO 5 0 /HPF [facility] Work Phone: Yeast, UA NOT REPORTED None [facility] Work Phone: [facility] Work Phone: UrinalysisOrdered By: Olamide Michel on 07-07-2021 Bilirubin Urine Negative NEGATIVE [facility] Work Phone: Color, UA YELLOW YELLOW [facility] [employer] Work Phone: Glucose, Ur Negative NEGATIVE [facility] Work Phone: Interpretation and review of laboratory results Abnormal [facility] Work Phone: Ketones Ql (U) Negative NEGATIVE [facility] Work Phone: Leukocyte esterase Test strip Ql (U) 1+ Abnormal NEGATIVE [facility] Work Phone: Nitrite, Urine Negative NEGATIVE [facility] Work Phone: pH, UA 6.0 [facility] [employer] Work Phone: Protein, UA TRACE Abnormal NEGATIVE [facility] Work Phone: Specific [place], UA 1.020 [facility] [employer] Phone: Turbidity UA CLEAR CLEAR [facility] Phone: Urinalysis Comments [facility] [employer] Phone: Urine Hgb TRACE Abnormal NEGATIVE [facility] [employer] Phone: Urobilinogen, Urine Normal Normal [facility] [employer] Phone: [facility] Phone: Urinalysis, Routineon 2020 Bilirubin, SemiQt,Ur Negative Normal NEG [facility] Comment on above: Performed By: #### U MICAO, UA #### [facility] [address] [place], [place] [phone] Sociology Instructor: Jacob Campos MD Blood, Urine TRACE Abnormal NEG [facility] Comment on above: Performed By: #### U MICAO, UA #### [facility] [address] [place], [place] [phone] Sociology Instructor: Jacob Campos MD Clarity (U) CLEAR Normal CLEAR [facility] Comment on above: Performed By: #### U MICAO, UA #### [facility] [address] [place], [place] [phone] Sociology Instructor: Jacob Campos MD Color (U) YELLOW Normal YEL [facility] Comment on above: Performed By: #### U MICAO, UA #### [facility] [address] [place], [place] [phone] Sociology Instructor: Jacob Campos MD Comment Normal [facility] Comment on above: Performed By: #### U MICAO, UA #### [facility] [address] [place] [address] Sociology Instructor: Jacob Campos MD Glucose Ql (U) Negative Normal NEG [facility] Comment on above: Performed By: #### U EULALIAO, UA #### [facility] [address] [place], [place] [phone] Sociology Instructor: Jacob Campos MD Ketones Ql (U) Negative Normal NEG [facility] Comment on above: Performed By: #### U MICAO, UA #### [facility] [address] [place], [place] [phone] Sociology Instructor: Jacob Campos MD Leukocyte esterase Test strip Ql (U) 1+ Abnormal NEG [facility] Comment on above: Performed By: #### U EULALIAO, UA #### [facility] [address] [place], [place] [phone] Sociology Instructor: Jacob Campos MD Nitrite,Ur Negative Normal NEG [facility] Comment on above: Performed By: #### U EULALIAO, UA #### [facility] [address] [place], [place] [phone] Sociology Instructor: Jacob Campos MD PH,Ur 6.0 Normal 5.0-8.0 [facility] Comment on above: Performed By: #### U EULALIAO, UA #### [facility] [address] [place], [place] [phone] Sociology Instructor: Jacob Campos MD Protein Ql (U) TRACE Abnormal NEG [facility] Comment on above: Performed By: #### U MICAO, UA #### [facility] [address] [place], [place] [phone] Sociology Instructor: Jacob Campos MD Spec. [place],Ur 1.020 Normal 1.005-1.030 [facility] Comment on above: Performed By: #### U MICAO, UA #### [facility] [address] [place], [place] [phone] Sociology Instructor: Jacob Campos MD Urobilinogen,Ur Normal Normal NORM [facility] Comment on above: Performed By: #### U RICH UA #### [facility] [address] [place] [phone] Sociology Instructor: Jacob Campos MD Urinalysis,Microon 1 ----- Normal [facility] Comment on above: Performed By: #### U RICH UA #### [facility] [address] [place] [phone] Sociology Instructor: Jacob Campos MD Bacteria 2+ Abnormal NONE [facility] Comment on above: Performed By: #### U RICH UA #### [facility] [address] [place] [address] Sociology Instructor: Jacob Campos MD Epithelial cells LM Ql (Urine sed) 5 TO 10 Normal [facility] Comment on above: Performed By: #### U RICH UA #### [facility] [address] [place] [phone] Sociology Instructor: Jacob Campos MD Mucus Strands 1+ Abnormal [facility] Comment on above: Performed By: #### U RICH UA #### [facility] [address] [place] [phone] Sociology Instructor: Jacob Campos MD Urine RBC's 5 TO 10 Normal 0-2 [facility] Comment on above: Performed By: #### U RICH, UA #### [facility] [address] [place] [phone] Sociology Instructor: Jacob Campos MD Urine WBC's 2 TO 5 Normal 0 [facility] Comment on above: Performed By: #### U RICH, UA #### [facility] [address] [place], [place] [phone] Sociology Instructor: Jacob Campos MD Amorphous sediment LM Ql (Urine sed) NOT REPORTED Normal [facility] Comment on above: Performed By: #### U RICH UA #### [facility] [address] [place], [place] [phone] Sociology Instructor: Jacob Campos MD Casts NOT REPORTED Normal [facility] Comment on above: Performed By: #### U MICAO, UA #### [facility] [address] [place], [place] [phone] Sociology Instructor: Jacob Campos MD Crystals LM Nom (Urine sed) NOT REPORTED Normal NONE [facility] Comment on above: Performed By: #### U MICAO, UA #### [facility] [address] [place] [address] Sociology Instructor: Jacob Campos MD Epithelial, Renal NOT REPORTED Normal 0 [facility] Comment on above: Performed By: #### U MICAO, UA #### [facility] [address] [place] [address] Sociology Instructor: Jacob Campos MD Other Observations NOT REPORTED Normal NREQ [facility] Comment on above: Performed By: #### U MICAO, UA #### [facility] [address] [place] [address] Sociology Instructor: Jacob Campos MD Trichomonas NOT REPORTED Normal NONE [facility] Comment on above: Performed By: #### U MICAO, UA #### [facility] [address] [place], [place] [phone] Sociology Instructor: Jacob Campos MD Yeast NOT REPORTED Normal NONE [facility] Comment on above: Performed By: #### U MICAO, UA #### [facility] [address] [place] [address] Sociology Instructor: Jacob Campos MD XR hand RT min 3V*on 021 XR hand RT min 3V* [facility] Main [address] [address] XRay Report Signed Patient: Isabel Waddell MR#: [id number] : 1960 Acct:[id number] Age/Sex: 60 / F ADM Date: 03/28/21 Loc: [facility] Room: Type[facility] Attending Dr: Sona Hurst MD Ordering Provider: [...] Mckayla Rai M.D.03/28/2021 1:26 PM Dictation Location: [place] [address] Transcribed By: [facility] 03/28/21 1326 Dictated By: Mckayla Rai MD 03/28/21 1321 Signed By: 03/28/21 1326 [facility] BIOAVAILABLE TESTOSTERONE FE MALE, CHILDon 11-29-2019 Albumin [Mass/Vol] 4.3 g/dL Normal 3.6-5.1 [facility] Comment on above: Result Comment: Age and Gender Specific Reference Interval Applied Interpretive Information: Total Testosterone Reference Interval (ng/dL) Premenopausal 9 - 55 Postmenopausal 5 - 32 Bioavailable Testosterone (ng/dL) Postmenopausal 1.5 - 9.4 Free Testosterone Reference Interval (pg/mL) Postmenopausal 0.6 - 3.8 This test was developed and its performance characteristics determined by [facility] ([facility] It has not been cleared or approved by the U.S. Food and Drug Administration (FDA). The FDA has determined that such clearance or approval is not necessary. This test is used for clinical purposes and should not be regarded as investigational or for research. [facility] is qualified to perform high complexity testing under the Clinical Laboratory Improvement Amendments (CLIA). Test performed at [facility] [address] [place] [address], [address], [address] [place] [address] Php Mysql Developer: Adi Barksdale M.D. CLIA Number [id number] [facility] Accreditation Number [id number] ------- [facility] [address] [place] [address] CLIA No. [id number] CAP Accreditation No. [id number] Php Mysql Developer: Isiah Burr M.D. Performed By: #### 1 000, 4500, 4510, 4520, 16069, 5000, 75307, 30339 #### [facility] Unless Otherwise Noted [address] [place] [address] / COLA #4724/CLIA # [id number] SEX HORM BINDING GLOBULIN 56.3 nmol/L Normal 17.3-125.0 [facility] Comment on above: Performed By: #### 1 000, 4500, 4510, 4520, 96421, 5000, 02496, 40153 #### [facility] Unless Otherwise Noted [address] [place] [address] / COLA #4724/CLIA # [id number] TESTOSTERONE BIO FEMALE 2.9 ng/dL Normal 1.5-9.4 [facility] Comment on above: Performed By: #### 1 000, 4500, 4510, 4520, 29797, 5000, 20538, 67088 #### [facility] Unless Otherwise Noted [address] [address] / COLA #4724/CLIA # [id number] TESTOSTERONE FREE FEMALE 1.3 pg/mL Normal 0.6-3.8 [facility] Comment on above: Performed By: #### 1 000, 4500, 4510, 4520, 97711, 5000, 97707, 42030 #### [facility] Unless Otherwise Noted [address] [address] / COLA #4724/CLIA # [id number] TESTOSTERONE, ULTRASENSITIVE 10 ng/dL Normal 9-55 [facility] Comment on above: Performed By: #### 1 000, 4500, 4510, 4520, 21188, 5000, 54913, 19077 #### [facility] Unless Otherwise Noted [address] [address] / COLA #4724/CLIA # [id number] ADRENOCORTICOTROPIC HORMon 0 11-27-2019 ADRENOCORTICOTROPIC HORM 18.1 PG/ML Normal 7.2-63.3 [facility] Comment on above: Result Comment: Reference range established for normal adult patients, morning blood draw (7-10 AM). Certain synthetic ACTH fragments may interfere with this assay. Test performed at [facility] [address] [place] [address] CLIA Number [id number] [facility] Accreditation Number [id number] ------- Performed By: #### 1 000, 4500, 4510, 4520, 50087, 5000, 97080, 76440 #### [facility] Unless Otherwise Noted [address] [place] [address] / COLA #4724/CLIA # [id number] IGF-1on 11-27-2019 IGF-1 151 NG/ML Normal 43-187 [facility] Comment on above: Result Comment: Test performed at [facility] [address] [place] [address] CLIA Number [id number] [facility] Accreditation Number [id number] ------- Performed By: #### 1 000, 4500, 4510, 4520, 05149, 5000, 44904, 40818 #### [facility] Unless Otherwise Noted [address] [place] [address] / COLA #4724/CLIA # [id number] CORTISOL [place] 11-26-2019 CORTISOL AM 8.6 UG/DL Normal 4.5-22.7 [facility] Comment on above: Performed By: #### 1 000, 4500, 4510, 4520, 71966, 5000, 71136, 86769 #### [facility] Unless Otherwise Noted [address] [place] [address] / COLA #4724/CLIA # [id number] FSHon 11-26-2019 FSH 26.30 mlU/mL Normal [facility] Comment on above: Result Comment: REFE RENCE RANGES FOR FEMALES: OVULATING FEMALE: FOLLICULAR PHASE 1.98-11.6 PEAK 5.14-23.4 LUTEAL PHASE 1.38-9.58 POSTMENOPAUSAL FEMALE 21.5-131 Performed By: #### 4 530, 4540, 4550, 4577 #### [facility] Unless Otherwise Noted [address] [address] / COLA #4724/CLIA # [id number] LHon 11-26-2019 LH 23.00 mIU/ml Normal [facility] Comment on above: Result Comment: REFE RENCE RANGES FOR FEMALE: OVULATING FEMALE: FOLLICULAR PHASE 2.58-12.1 PEAK 27.3-96.9 LUTEAL PHASE 0.83-15.5 POSTMENOPAUSAL FEMALE 13.1-86.5 Performed By: #### 4 530, 4540, 4550, 4577 #### [facility] Unless Otherwise Noted [address] [address] / COLA #4724/CLIA # [id number] PROLACTINon 11-26-2019 PROLACTIN 17.3 ng/ml Normal 2.1-47.6 [facility] Comment on above: Result Comment: IVELISSE ENOPAUSAL FEMALE 2.1 - 47.6 POSTMENOPAUSAL FEMALE 0.0 - 41.4 Performed By: #### 1 000, 4500, 4510, 4520, 85482, 5000, 04071, 98411 #### [facility] Unless Otherwise Noted [address] [address] / COLA #4724/CLIA # [id number] CBC W/AUTO DIFFon 11-25-2019 ABS BASOPHILS 0.0 X10E9/L Normal 0-0.9 [facility] Comment on above: Result Comment: Perf ormed at [facility] [address] [facility] [address] Performed By: #### 1 000, 4500, 4510, 4520, 90996, 5000, 68357, 14428 #### [facility] Unless Otherwise Noted [address] [address] / COLA #4724/CLIA # [id number] ABS NEUTROPHILS 2.6 X10E9/L Normal 1.5-6.6 [facility] Comment on above: Performed By: #### 1 000, 4500, 4510, 4520, 02386, 5000, 44071, 11931 #### [facility] Unless Otherwise Noted [address] [address] / COLA #4724/CLIA # [id number] Basophils/100 WBC (Bld) 0.6 % Normal [facility] Comment on above: Performed By: #### 1 000, 4500, 4510, 4520, 20565, 5000, 49835, 17573 #### [facility] Unless Otherwise Noted [address] [place] [address] / COLA #4724/CLIA # [id number] Eosinophils (Bld) [#/Vol] 0.2 10*3/uL Normal 0.0-0.4 [facility] Comment on above: Performed By: #### 1 000, 4500, 4510, 4520, 98262, 5000, 56241, 48666 #### [facility] Unless Otherwise Noted [address] [address] / COLA #4724/CLIA # [id number] Eosinophils/100 WBC (Bld) 3.1 % Normal [facility] Comment on above: Performed By: #### 1 000, 4500, 4510, 4520, 52988, 5000, 08498, 53715 #### [facility] Unless Otherwise Noted [address] [address] / COLA #4724/CLIA # [id number] Erythrocyte distribution width (RBC) [Ratio] 13.3 % Normal 11.5-14.7 [facility] Comment on above: Performed By: #### 1 000, 4500, 4510, 4520, 34210, 5000, 54809, 60334 #### [facility] Unless Otherwise Noted [address] [place] [address] / COLA #4724/CLIA # [id number] Hematocrit (Bld) [Volume fraction] 39.4 % Normal 35-47 [facility] Comment on above: Performed By: #### 1 000, 4500, 4510, 4520, 86125, 5000, 48505, 94097 #### [facility] Unless Otherwise Noted [address] [place] [address] / COLA #4724/CLIA # [id number] Hemoglobin (Bld) [Mass/Vol] 13.3 g/dL Normal 11.7-16.0 [facility] Comment on above: Performed By: #### 1 000, 4500, 4510, 4520, 85860, 5000, 47733, 49854 #### [facility] Unless Otherwise Noted [address] [place] [address] / COLA #4724/CLIA # [id number] Lymphocytes (Bld) [#/Vol] 1.8 10*3/uL Normal 1.0-3.5 [facility] Comment on above: Performed By: #### 1 000, 4500, 4510, 4520, 80713, 5000, 62802, 07091 #### [facility] Unless Otherwise Noted [address] [place] [address] / COLA #4724/CLIA # [id number] Lymphocytes/100 WBC (Bld) 35.0 % Normal [facility] Comment on above: Performed By: #### 1 000, 4500, 4510, 4520, 75511, 5000, 82328, 50825 #### [facility] Unless Otherwise Noted [address] [place] [address] / COLA #4724/CLIA # [id number] MCH (RBC) [Entitic mass] 31.2 pg Normal 26-33.5 [facility] Comment on above: Performed By: #### 1 000, 4500, 4510, 4520, 60470, 5000, 78594, 73122 #### [facility] Unless Otherwise Noted [address] [place] [address] / COLA #4724/CLIA # [id number] MCHC (RBC) [Mass/Vol] 33.7 g/dL Normal 32-36 [facility] Comment on above: Performed By: #### 1 000, 4500, 4510, 4520, 86747, 5000, 14047, 46175 #### [facility] Unless Otherwise Noted [address] [place] [address] / COLA #4724/CLIA # [id number] MCV (RBC) [Entitic vol] 93 fL Normal 81-100 [facility] Comment on above: Performed By: #### 1 000, 4500, 4510, 4520, 32298, 5000, 74573, 27333 #### [facility] Unless Otherwise Noted [address] [address] / COLA #4724/CLIA # [id number] Monocytes (Bld) [#/Vol] 0.5 10*3/uL Normal 0-0.9 [facility] Comment on above: Performed By: #### 1 000, 4500, 4510, 4520, 29314, 5000, 06122, 13492 #### [facility] Unless Otherwise Noted [address] [address] / COLA #4724/CLIA # [id number] Monocytes/100 WBC (Bld) 10.0 % Normal [facility] Comment on above: Performed By: #### 1 000, 4500, 4510, 4520, 14227, 5000, 04588, 20089 #### [facility] Unless Otherwise Noted [address] [address] / COLA #4724/CLIA # [id number] Neutrophils/100 WBC (Bld) 51.3 % Normal [facility] Comment on above: Performed By: #### 1 000, 4500, 4510, 4520, 83189, 5000, 96890, 24829 #### [facility] Unless Otherwise Noted [address] [address] / COLA #4724/CLIA # [id number] Platelet mean volume (Bld) [Entitic vol] 8.8 fL Normal 7-12 [facility] Comment on above: Performed By: #### 1 000, 4500, 4510, 4520, 52032, 5000, 76160, 95348 #### [facility] Unless Otherwise Noted [address] [address] / COLA #4724/CLIA # [id number] Platelets (Bld) [#/Vol] 225 10*3/uL Normal 150-450 [facility] Comment on above: Performed By: #### 1 000, 4500, 4510, 4520, 23795, 5000, 73774, 15600 #### [facility] Unless Otherwise Noted [address] [address] / COLA #4724/CLIA # [id number] RBC (Bld) [#/Vol] 4.25 X10E12/L Normal 3.80-5.20 [facility] Comment on above: Performed By: #### 1 000, 4500, 4510, 4520, 60415, 5000, 72217, 11936 #### [facility] Unless Otherwise Noted [address] [address] / COLA #4724/CLIA # [id number] WBC (Bld) [#/Vol] 5.1 10*3/uL Normal 4.8-10.8 [facility] Comment on above: Performed By: #### 1 000, 4500, 4510, 4520, 70529, 5000, 69382, 94088 #### [facility] Unless Otherwise Noted [address] [address] / COLA #4724/CLIA # [id number] [facility] 11-25-2019 Albumin [Mass/Vol] 4.2 g/dL Normal 3.5-5.0 [facility] Comment on above: Performed By: #### 1 000, 4500, 4510, 4520, 07723, 5000, 85313, 69096 #### [facility] Unless Otherwise Noted [address] [address] / COLA #4724/CLIA # [id number] ALP [Catalytic activity/Vol] 103.0 U/L Normal 38.0-126.0 [facility] Comment on above: Performed By: #### 1 000, 4500, 4510, 4520, 48458, 5000, 74681, 29036 #### [facility] Unless Otherwise Noted [address] [address] / COLA #4724/CLIA # [id number] ALT [Catalytic activity/Vol] 62.0 U/L Normal 13.0-69.0 [facility] Comment on above: Performed By: #### 1 000, 4500, 4510, 4520, 65486, 5000, 11262, 87174 #### [facility] Unless Otherwise Noted [address] [address] / COLA #4724/CLIA # [id number] Anion gap [Moles/Vol] 4.0 mmol/L Low 10.0-15.0 [facility] Comment on above: Performed By: #### 1 000, 4500, 4510, 4520, 12944, 5000, 30134, 84935 #### [facility] Unless Otherwise Noted [address] [address] / COLA #4724/CLIA # [id number] AST [Catalytic activity/Vol] 30.0 U/L Normal 15.0-46.0 [facility] Comment on above: Performed By: #### 1 000, 4500, 4510, 4520, 57521, 5000, 31141, 45323 #### [facility] Unless Otherwise Noted [address] [address] / COLA #4724/CLIA # [id number] Bilirubin Ql (U) 0.50 mg/dL Normal 0.20-1.30 [facility] Comment on above: Performed By: #### 1 000, 4500, 4510, 4520, 20628, 5000, 95135, 84635 #### [facility] Unless Otherwise Noted [address] / COLA #4724/CLIA # [id number] BUN/Cre Ratio 32.9 Ratio High 7.0-27.0 [facility] Comment on above: Performed By: #### 1 000, 4500, 4510, 4520, 94799, 5000, 54938, 58356 #### [facility] Unless Otherwise Noted [address] / COLA #4724/CLIA # [id number] Calcium [Mass/Vol] 9.5 mg/dL Normal 8.4-10.2 [facility] Comment on above: Performed By: #### 1 000, 4500, 4510, 4520, 29538, 5000, 80421, 37252 #### [facility] Unless Otherwise Noted [address] / COLA #4724/CLIA # [id number] Chloride [Moles/Vol] 102.0 mmol/L Normal 98.0-107.0 [facility] Comment on above: Performed By: #### 1 000, 4500, 4510, 4520, 44269, 5000, 15962, 17513 #### [facility] Unless Otherwise Noted [address] / COLA #4724/CLIA # [id number] CO2 [Moles/Vol] 31.0 mmol/L High 22.0-30.0 [facility] Comment on above: Performed By: #### 1 000, 4500, 4510, 4520, 74629, 5000, 19964, 17454 #### [facility] Unless Otherwise Noted [address] / COLA #4724/CLIA # [id number] Creatinine [Mass/Vol] 0.7 mg/dL Normal 0.5-1.0 [facility] Comment on above: Performed By: #### 1 000, 4500, 4510, 4520, 04615, 5000, 67241, 90256 #### [facility] Unless Otherwise Noted [address] [place] [address] / COLA #4724/CLIA # [id number] GFR/1.73 sq M predicted among blacks MDRD (S/P/Bld) [Vol rate/Area] 110.1 ml/m1.73 Normal [facility] Comment on above: Performed By: #### 1 000, 4500, 4510, 4520, 84918, 5000, 37026, 83449 #### [facility] Unless Otherwise Noted [address] [place] [address] / COLA #4724/CLIA # [id number] GFR/1.73 sq M predicted among non-blacks MDRD (S/P/Bld) [Vol rate/Area] 91.0 ml/m1.73 [facility] Comment on above: Performed By: #### 1 000, 4500, 4510, 4520, 75850, 5000, 66626, 91664 #### [facility] Unless Otherwise Noted [address] [place] [address] / COLA #4724/CLIA # [id number] GFR/1.73 sq M predicted among non-blacks MDRD (S/P/Bld) [Vol rate/Area] 96.2 ml/m1.73 [facility] Comment on above: Performed By: #### 1 000, 4500, 4510, 4520, 22684, 5000, 85968, 48173 #### [facility] Unless Otherwise Noted [address] [facility] [address] [place] [address] / COLA #4724/CLIA # [id number] Glucose [Mass/Vol] 109.0 mg/dL High 74.0-106.0 [facility] Comment on above: Performed By: #### 1 000, 4500, 4510, 4520, 65132, 5000, 83784, 58019 #### [facility] Unless Otherwise Noted [address] [address] / COLA #4724/CLIA # [id number] Potassium [Moles/Vol] 4.3 mmol/L Normal 3.5-5.1 [facility] Comment on above: Performed By: #### 1 000, 4500, 4510, 4520, 39843, 5000, 28540, 99991 #### [facility] Unless Otherwise Noted [address] [place] [address] / COLA #4724/CLIA # [id number] Protein [Mass/Vol] 6.8 g/dL Normal 6.3-8.2 [facility] Comment on above: Performed By: #### 1 000, 4500, 4510, 4520, 96730, 5000, 91295, 44469 #### [facility] Unless Otherwise Noted [address] [facility] [address] [place] [address] / COLA #4724/CLIA # [id number] Sodium [Moles/Vol] 137.0 mmol/L Normal 137.0-145.0 [facility] Comment on above: Performed By: #### 1 000, 4500, 4510, 4520, 41537, 5000, 32000, 37520 #### [facility] Unless Otherwise Noted [address] [address] / COLA #4724/CLIA # [id number] Urea nitrogen [Mass/Vol] 23.0 mg/dL High 7.0-17.0 [facility] Comment on above: Performed By: #### 1 000, 4500, 4510, 4520, 97964, 5000, 27312, 76295 #### [facility] Unless Otherwise Noted [address] [address] / COLA #4724/CLIA # [id number] FT3on 11-25-2019 FT3 4.39 pg/mL Normal 2.71-6.16 [facility] Comment on above: Performed By: #### 1 000, 4500, 4510, 4520, 74490, 5000, 29041, 51740 #### [facility] Unless Otherwise Noted [address] [place] [address] / COLA #4724/CLIA # [id number] FT4on 11-25-2019 Free T4 [Mass/Vol] 0.95 ng/dL Normal 0.64-1.79 [facility] Comment on above: Performed By: #### 1 000, 4500, 4510, 4520, 02120, 5000, 06855, 01263 #### [facility] Unless Otherwise Noted [address] [address] / COLA #4724/CLIA # [id number] TSHon 11-25-2019 TSH Qn 0.35 uIU/ml Low 0.47-4.68 [facility] Comment on above: Performed By: #### 1 000, 4500, 4510, 4520, [id number], 5000, [id number], [id number] #### [facility] [place], [facility]. Unless Otherwise Noted [address] [place] [address] [place] [id number] / MERLY #[id number]/LAKIA # [id number] Vital Signs Date Time Vital Sign Value Performing Clinician Facility 09-29-2023 10:33-0500 Body height 167.6 cm South Saba DO Work Phone: [facility] 09-29-2023 10:33-0500 Body weight 62.14 kg South Saba DO Work Phone: [facility] 09-12-2023 10:00-0400 Body height 167.64 cm Roland Ball Other [employer] Other 09-12-2023 10:00-0400 Body mass index (BMI) [Ratio] 23.05 kg/m2 Roland Ball Other [employer] Other 09-12-2023 10:00-0400 Body weight 64.77 kg Roland Ball Other [employer] Other 09-12-2023 10:00-0400 Diastolic blood pressure 75 mm[Hg] Roland Ball Other [employer] Other 09-12-2023 10:00-0400 Respiratory rate 12 /min Roland Ball Other [employer] Other 09-12-2023 10:00-0400 Systolic blood pressure 131 mm[Hg] Roland Ball Other [employer] Other 08-29-2023 10:55-0400 Body height 167.6 cm Elder Galan APRN.CAR FILLER Work Phone: [facility] 08-29-2023 10:55-0400 Body temperature 98.01 [degF] Elder Angelia ATTRACTION ATTENDANT.CAR FILLER Work Phone: [facility] 08-29-2023 10:55-0400 Body weight 66.68 kg Elder Angelia ATTRACTION ATTENDANT.CAR FILLER Work Phone: [facility] 08-29-2023 10:55-0400 Diastolic blood pressure 78 mm[Hg] Elder Angelia ATTRACTION ATTENDANT.CAR FILLER Work Phone: [facility] 08-29-2023 10:55-0400 Heart rate 82 /min Elder Angelia ATTRACTION ATTENDANT.CAR FILLER Work Phone: [facility] 08-29-2023 10:55-0400 SaO2% (BldA) [Mass fraction] 99 % Elder Angelia ATTRACTION ATTENDANT.CAR FILLER Work Phone: [facility] 08-29-2023 10:55-0400 Systolic blood pressure 163 mm[Hg] Elder Angelia ATTRACTION ATTENDANT.CAR FILLER Work Phone: [facility] 08-29-2023 10:03-0400 Body temperature 98.01 [degF] Heidi Macdonald MD Work Phone: [facility] 08-29-2023 10:03-0400 Body weight 66.68 kg Heidi Macdonald MD Work Phone: [facility] 08-29-2023 10:03-0400 Diastolic blood pressure 77 mm[Hg] Heidi Macdonald MD Work Phone: [facility] 08-29-2023 10:03-0400 Heart rate 82 /min Heidi Macdonald MD Work Phone: [facility] 08-29-2023 10:03-0400 Respiratory rate 16 /min Heidi Macdonald MD Work Phone: [facility] 08-29-2023 10:03-0400 SaO2% (BldA) [Mass fraction] 99 % Heidi Macdonald MD Work Phone: [facility] 08-29-2023 10:03-0400 Systolic blood pressure 157 mm[Hg] Heidi Macdonald MD Work Phone: [facility] 07-04-2023 09:18-0400 Body height 167.6 cm South Saba DO Work Phone: [facility] 07-04-2023 09:18-0400 Body temperature 97.59 [degF] South Jayant DO Work Phone: [facility] 07-04-2023 09:18-0400 Body weight 66.5 kg South Jayant DO Work Phone: [facility] 07-04-2023 09:18-0400 Diastolic blood pressure 68 mm[Hg] South Jayant DO Work Phone: [facility] 07-04-2023 09:18-0400 Heart rate 73 /min South Jayant DO Work Phone: [facility] 07-04-2023 09:18-0400 SaO2% (BldA) [Mass fraction] 100 % South Jayant DO Work Phone: [facility] 07-04-2023 09:18-0400 Systolic blood pressure 139 mm[Hg] South Jayant DO Work Phone: [facility] 06-27-2023 10:30-0400 Body temperature 97.39 [degF] Heidi Macdonald MD Work Phone: [facility] 06-27-2023 10:30-0400 Body weight 69.4 kg Heidi Macdonald MD Work Phone: [facility] 06-27-2023 10:30-0400 Diastolic blood pressure 76 mm[Hg] Heidi Macdonald MD Work Phone: [facility] 06-27-2023 10:30-0400 Heart rate 70 /min Heidi Macdonald MD Work Phone: [facility] 06-27-2023 10:30-0400 Respiratory rate 16 /min Heidi Macdonald MD Work Phone: [facility] 06-27-2023 10:30-0400 SaO2% (BldA) [Mass fraction] 97 % Heidi Macdonald MD Work Phone: [facility] 06-27-2023 10:30-0400 Systolic blood pressure 141 mm[Hg] Heidi Macdonald MD Work Phone: [facility] 05-23-2023 09:45-0400 Body height 167.64 cm Roland Ball Other [employer] Other 05-23-2023 09:45-0400 Body mass index (BMI) [Ratio] 24.79 kg/m2 Roland Ball Other [employer] Other 05-23-2023 09:45-0400 Body weight 69.67 kg Roland Ball Other [employer] Other 05-23-2023 09:45-0400 Diastolic blood pressure 78 mm[Hg] Roland Ball Other [employer] Other 05-23-2023 09:45-0400 Respiratory rate 12 /min Roland Ball Other [employer] Other 05-23-2023 09:45-0400 Systolic blood pressure 158 mm[Hg] Roland Ball Other [employer] Other 04-23-2023 13:30-0400 Body height 167.64 cm Roland Ball Other [employer] Other 04-23-2023 13:30-0400 Body mass index (BMI) [Ratio] 24.34 kg/m2 Roland Ball Other [employer] Other 04-23-2023 13:30-0400 Body weight 68.4 kg Roland Ball Other [employer] Other 04-23-2023 13:30-0400 Diastolic blood pressure 74 mm[Hg] Roland Ball Other [employer] Other 04-23-2023 13:30-0400 Respiratory rate 12 /min Roland Ball Other [employer] Other 04-23-2023 13:30-0400 Systolic blood pressure 131 mm[Hg] Roland Ball Other [employer] Other 03-05-2023 09:30-0400 Body height 167.6 cm Juan Manuel Pack ATTRACTION ATTENDANT.CAR FILLER Work Phone: [facility] 03-05-2023 09:30-0400 Body weight 70.22 kg Juan Manuel Pack ATTRACTION ATTENDANT.CAR FILLER Work Phone: [facility] 03-05-2023 09:30-0400 Diastolic blood pressure 90 mm[Hg] Juan Manuel Pack ATTRACTION ATTENDANT.CAR FILLER Work Phone: [facility] 03-05-2023 09:30-0400 Heart rate 85 /min Juan Manuel Pack ATTRACTION ATTENDANT.CAR FILLER Work Phone: [facility] 03-05-2023 09:30-0400 Systolic blood pressure 152 mm[Hg] Juan Manuel Pack ATTRACTION ATTENDANT.CAR FILLER Work Phone: [facility] 01-24-2023 08:45-0500 Body height 167.64 cm Roland Ball Other [employer] Other 01-24-2023 08:45-0500 Body mass index (BMI) [Ratio] 24.05 kg/m2 Roland Ball Other [employer] Other 01-24-2023 08:45-0500 Body temperature 96.7 [degF] Roland Ball Other [employer] Other 01-24-2023 08:45-0500 Body weight 67.59 kg Roland Ball Other [employer] Other 01-24-2023 08:45-0500 Diastolic blood pressure 93 mm[Hg] Roland Ball Other [employer] Other 01-24-2023 08:45-0500 Systolic blood pressure 165 mm[Hg] Roland Ball Other [employer] Other 01-20-2023 13:35-0500 Body height 167.64 cm Olya Sanjuanita Other [employer] Other 01-20-2023 13:35-0500 Body mass index (BMI) [Ratio] 24.53 kg/m2 Olya Sanjuanita Other [employer] Other 01-20-2023 13:35-0500 Body temperature 97.3 [degF] Olya Sanjuanita Other [employer] Other 01-20-2023 13:35-0500 Body weight 68.95 kg Olya Sanjuanita Other [employer] Other 01-20-2023 13:35-0500 Respiratory rate 18 /min Olya Sanjuanita Other [employer] Other 01-20-2023 13:35-0500 SaO2% (BldA) [Mass fraction] 95 % Olya Gann Other [employer] Other 01-03-2023 15:27-0500 Body height 167.6 cm Henry Ramos MD Work Phone: [facility] 01-03-2023 15:27-0500 Body temperature 97.81 [degF] Henry Ramos MD Work Phone: [facility] 01-03-2023 15:27-0500 Body weight 71.17 kg Henry Ramos MD Work Phone: [facility] 01-03-2023 15:27-0500 Diastolic blood pressure 87 mm[Hg] Henry Ramos MD Work Phone: [facility] 01-03-2023 15:27-0500 Heart rate 95 /min Henry Ramos MD Work Phone: [facility] 01-03-2023 15:27-0500 SaO2% (BldA) [Mass fraction] 99 % Henry Ramos MD Work Phone: [facility] 01-03-2023 15:27-0500 Systolic blood pressure 141 mm[Hg] Henry Ramos MD Work Phone: [facility] 09-26-2022 12:30-0500 Diastolic blood pressure 89 mm[Hg] Leila Alamo MD Work Phone: [facility] 09-26-2022 12:30-0500 Heart rate 79 /min Leila Alamo MD Work Phone: [facility] 09-26-2022 12:30-0500 Respiratory rate 18 /min Leila Alamo MD Work Phone: [facility] 09-26-2022 12:30-0500 SaO2% (BldA) [Mass fraction] 98 % Leila Alamo MD Work Phone: [facility] 09-26-2022 12:30-0500 Systolic blood pressure 140 mm[Hg] Leila Alamo MD Work Phone: [facility] 09-26-2022 11:25-0500 Body height 167.6 cm Leila Alamo MD Work Phone: [facility] 09-26-2022 11:25-0500 Body temperature 98.2 [degF] Leila Alamo MD Work Phone: [facility] 09-26-2022 11:25-0500 Body weight 68.04 kg Leila Alamo MD Work Phone: [facility] 08-07-2022 15:28-0400 Body weight 68.95 kg Henry Ramos MD Work Phone: [facility] 08-07-2022 15:28-0400 Diastolic blood pressure 91 mm[Hg] Henry Ramos MD Work Phone: [facility] 08-07-2022 15:28-0400 SaO2% (BldA) [Mass fraction] 98 % Henry Ramos MD Work Phone: [facility] 08-07-2022 15:28-0400 Systolic blood pressure 132 mm[Hg] Henry Ramos MD Work Phone: [facility] 03-13-2022 14:38-0400 Body height 169.5 cm Henry Ramos MD Work Phone: [facility] 03-13-2022 14:38-0400 Body temperature 96.8 [degF] Henry Ramos MD Work Phone: [facility] 03-13-2022 14:38-0400 Body weight 66.32 kg Henry Ramos MD Work Phone: [facility] 03-13-2022 14:38-0400 Diastolic blood pressure 96 mm[Hg] Henry Ramos MD Work Phone: [facility] 03-13-2022 14:38-0400 Heart rate 85 /min Henry Ramos MD Work Phone: [facility] 03-13-2022 14:38-0400 Respiratory rate 16 /min Henry Ramos MD Work Phone: [facility] 03-13-2022 14:38-0400 SaO2% (BldA) [Mass fraction] 98 % Henry Ramos MD Work Phone: [facility] 03-13-2022 14:38-0400 Systolic blood pressure 151 mm[Hg] Henry Ramos MD Work Phone: [facility] 07-07-2021 14:50-0400 Diastolic blood pressure 101 mm[Hg] Mayra Michel MD Work Phone: [employer] Work Phone: 07-07-2021 14:50-0400 Heart rate 70 /min Mayra Michel MD Work Phone: [employer] Work Phone: 07-07-2021 14:50-0400 Respiratory rate 13 /min Mayra Michel MD Work Phone: [employer] Work Phone: 07-07-2021 14:50-0400 SaO2% (BldA) [Mass fraction] 99 % Mayra Michel MD Work Phone: [employer] Work Phone: 07-07-2021 14:50-0400 Systolic blood pressure 133 mm[Hg] Mayra Michel MD Work Phone: [employer] Work Phone: 07-07-2021 13:25-0400 Body height 167.6 cm Mayra Michel MD Work Phone: [employer] Work Phone: 07-07-2021 13:25-0400 Body mass index (BMI) [Ratio] 24.19 kg/m2 Mayra Michel MD Work Phone: [employer] Work Phone: 07-07-2021 13:25-0400 Body temperature 98.6 [degF] Mayra Michel MD Work Phone: [employer] Work Phone: 07-07-2021 13:25-0400 Body weight 67.99 kg Mayra Michel MD Work Phone: [facility] Work Phone: 11-25-2019 16:19-0500 Body weight 70.4 Kg [facility] Comment on above: Performed By: #### 1000, 4500, 4510, 452 0, 12148, 5000, [id number], [id number] #### [facility] Unless Otherwise Noted [address] [place] [address] / COLA #4724/LAKIA # [id number] Encounters Encounter Date Encounter Type Care Provider Facility Start: 12-17-2023 End: 12-17-2023 ambulatory Roland Serrano Other [employer] Other Start: 12-17-2023 Telephone encounter Roland Christensen [facility] Start: 10-23-2023 End: 10-23-2023 ambulatory Roland Serrano Other [employer] Other Start: 10-23-2023 Telephone encounter Roland VOGT [facility] Start: 10-02-2023 End: 10-02-2023 ambulatory LEIGH MORENO Not Available Start: 09-29-2023 End: 09-30-2023 ambulatory ROLAND SERRANO Facility:[facility] Start: 09-29-2023 End: 09-29-2023 Patient encounter procedure South Saba DO Work Phone: Colorectal Surgery Comment on above: Radiation proctitis (Primary Dx); Endometrial cancer (HCC) Start: 09-21-2023 End: 09-21-2023 ambulatory Roland Serrano Other [employer] Other Start: 09-21-2023 Telephone encounter Roland Christensen [facility] Start: 09-18-2023 End: 09-18-2023 ambulatory Roland Serrano Other [employer] Other Start: 09-18-2023 Telephone encounter Roland Ball [facility] Start: 09-17-2023 End: 09-17-2023 ambulatory Roland Ball Other [employer] Other Start: 09-17-2023 Telephone encounter Roland Ball [facility] Start: 09-15-2023 End: 09-15-2023 ambulatory Roland Ball Other [employer] Other Start: 09-15-2023 Telephone encounter Roland Ball [facility] Start: 09-14-2023 End: 09-14-2023 ambulatory Roland Ball Other [employer] Other Start: 09-14-2023 Telephone encounter Roland Ball [facility] Start: 09-12-2023 End: 09-12-2023 ambulatory Roland Ball Other [employer] Other Start: 09-12-2023 Encounter for genera l adult medical examination without abnormal findings Roland Ball [facility] Start: 09-12-2023 Periodic preventive med est patient 40-64yrs Roland Ball [facility] Start: 09-10-2023 End: 09-10-2023 ambulatory Roland Ball Other [employer] Other Start: 09-10-2023 Telephone encounter Roland Ball [facility] Start: 09-03-2023 End: 09-03-2023 ambulatory Roland Ball Other [employer] Other Start: 09-03-2023 Telephone encounter Roland Ball [facility] Start: 09-02-2023 Telephone encounter Roland Ball [facility] Start: 09-02-2023 End: 09-02-2023 ambulatory ROLAND E MAGGIE Purdin [employer] Other Start: 09-01-2023 End: 09-01-2023 ambulatory Roland Ball Other [facility] [employer] Other Start: 09-01-2023 Telephone encounter Roland Serrano TORIE Fermin Serrano [facility] Start: 08-29-2023 End: 08-29-2023 ambulatory ROLAND SERRANO Facility:[facility] Start: 08-29-2023 End: 08-30-2023 ambulatory ROLAND SERRANO Facility:[facility] Start: 08-29-2023 Encounter for other preprocedural examination ELDER GALAN [facility] Start: 08-29-2023 End: 08-29-2023 ambulatory ROLAND SERRANO Facility:[facility] Start: 08-29-2023 End: 08-29-2023 Preprocedural examination done Elder Galan APRN.CNP Work Phone: [facility] Work Phone: Start: 08-29-2023 End: 08-29-2023 ambulatory Pulm Fct Lab Main 8 Pulmonary Medicine Comment on above: Spirometry Start: 08-29-2023 End: 08-29-2023 Patient encounter procedure Pulm Fct Lab Main 8 [facility] Comment on above: Dyspnea and respirat ory abnormalities (Primary Dx); Calcified nodule; Iron deficiency anemia due to chronic blood loss Pre-op evaluation (P rimary Dx) Start: 08-29-2023 End: 08-29-2023 Subsequent hospital visit by physician Xr Chest Main A21 Radiology Comment on above: Dyspnea, unspecified type [R06.00] Start: 08-26-2023 Orders Only Heidi Macdonald MD Work Phone: [facility] Comment on above: ILD (interstitial lamont ng disease) ([facility]) (Primary Dx) Start: 08-22-2023 ambulatory South rincon DO Work Phone: [facility] Start: 08-22-2023 Patient encounter procedure South Saba DO Work Phone: Colorectal Surgery Comment on above: Pre op appointment Start: 08-22-2023 End: 08-22-2023 Subsequent hospital visit by physician [facility] Work Phone: [facility] Radiology CT Scan Comment on above: Interstitial pulmona ry disease (HCC) [J84.9] Start: 08-14-2023 ambulatory ROLAND SERRANO Facilit y:[facility] Start: 08-04-2023 End: 08-04-2023 ambulatory Roland Serrano Other [employer] Other Start: 08-04-2023 Office outpatient vi sit 15 minutes Roland Serrano EDDI Maggie [facility] Start: 07-22-2023 ambulatory South Rendon ntbernie DO Work Phone: Colorectal Surgery Start: 07-22-2023 Telephone encounter South Saba DO Work Phone: Colorectal Surgery Comment on above: Patient Update Start: 07-08-2023 End: 07-08-2023 ambulatory Roland Serrano Other [employer] Other Start: 07-08-2023 Telephone encounter Roland Serrano TORIE Maggie [facility] Start: 07-04-2023 End: 07-05-2023 ambulatory South [...] procedure Pulm Fct Lab Main 9 [facility] Comment on above: Interstitial pulmona ry disease (HCC) (Primary Dx); Other secondary pulmonary hypertension (HCC) Start: 05-26-2023 ambulatory Henry perales MD Work Phone: Gynecology Oncology Comment on above: Procitis Start: 05-23-2023 End: 05-23-2023 ambulatory Roland Serrano Other [employer] Other Start: 05-23-2023 Office outpatient vi sit 15 minutes Roland Serrano [facility] Start: 05-13-2023 End: 05-13-2023 ambulatory Roland Serrano Other [employer] Other Start: 05-13-2023 Telephone encounter Roland Serrano TORIE [facility] Start: 04-23-2023 End: 04-23-2023 ambulatory Roland Serrano Other [employer] Other Start: 04-23-2023 Patient encounter procedure Roland Serrano [facility] Start: 03-25-2023 End: 03-25-2023 ambulatory Roland Serrano Other [employer] Other Start: 03-25-2023 Telephone encounter Roland Serrano TORIE [facility] Start: 03-21-2023 Telephone encounter Roland Serrano TORIE [facility] Start: 03-21-2023 End: 03-22-[address] ROLAND SERRANO [facility] [employer] Other Start: 03-11-2023 End: 03-11-2023 ambulatory Roland Serrano Other [employer] Other Start: 03-11-2023 Telephone encounter Roland Serrano TORIE [facility] Start: 03-10-2023 End: 03-11-[address] ROLAND SERRANO [facility] [employer] Other Start: 03-10-2023 Telephone encounter Roland Serrano TORIE [facility] Start: 03-05-2023 End: 03-05-2023 ambulatory ROLAND SERRANO Facility:[facility] Start: 03-05-2023 End: 03-05-2023 Patient encounter procedure Juan Manuel Medina ATTRACTION ATTENDANT.CAR FILLER Work Phone: Gastroenterology Comment on above: Rectal bleeding (Vivi nicho Dx) Start: 01-24-2023 End: 01-24-2023 ambulatory Roland Serrano Other [employer] Other Start: 01-24-2023 Office outpatient vi sit 15 minutes Roland Serrano [facility] Start: 01-23-2023 End: 01-23-2023 ambulatory Roland Serrano Other [employer] Other Start: 01-23-2023 Telephone encounter Roland Serrano [facility] Start: 01-20-2023 Office outpatient vi sit 15 minutes Olya Sanjuanita [facility] Start: 01-20-2023 End: 01-20-[address] ROLAND SERRANO [facility] [employer] Other Start: 01-07-2023 End: 01-07-2023 ambulatory Roland Serrano Other [employer] Other Start: 01-07-2023 Telephone encounter Roland Serrano [facility] Start: 01-03-2023 End: 01-04-2023 ambulatory ROLAND SERRANO Facility:[facility] Start: 01-03-2023 End: 01-04-2023 ambulatory ROLAND SERRANO Facility:[facility] Start: 01-03-2023 End: 01-04-2023 ambulatory Henry Ramos MD Work Phone: Gynecology Oncology Comment on above: Recurrent carcinoma of endometrium (HCC) (Primary Dx); Radiation proctitis; Blood per rectum Start: 01-03-2023 End: 01-04-2023 Patient encounter procedure Henry Ramos MD Work Phone: [facility] Start: 12-25-2022 Telephone encounter Aretha [...] examination without abnormal findings DR ROLAND SERRANO [facility] Start: 09-04-2022 End: 09-05-[address] ROLAND SERRANO Facility:[facility] Start: 09-04-2022 End: 09-05-2022 Encounter for general adult medical examination without abnormal findings DR ROLAND SERRANO Facility:[facility] Start: 08-29-2022 Adult health examination Roland Serrano Other [employer] Other Start: 08-29-2022 Encounter for genera l adult medical examination without abnormal findings Roland Serrano Other [employer] Other Start: 08-29-2022 Pre-procedure evaluation check Roland Serrano Other [employer] Other Start: 08-07-2022 End: 08-07-2022 ambulatory Henry Ramos MD Work Phone: Gynecology Oncology Comment on above: Recurrent carcinoma of endometrium (HCC) (Primary Dx); Radiation proctitis; Foreshortening of vagina; Endometrial cancer (HCC); Vaginal atrophy; Rectal bleeding Start: 08-07-2022 End: 08-07-2022 Patient encounter procedure Henry Ramos MD Work Phone: [facility] Start: 06-12-2022 End: 06-12-2022 ambulatory SALOMON JACOME Facility:[facility] Start: 03-13-2022 End: 03-13-2022 ambulatory Henry Ramos MD Work Phone: Gynecology Oncology Comment on above: Recurrent carcinoma of endometrium (HCC) (Primary Dx); Vaginal atrophy; Foreshortening of vagina Start: 03-13-2022 End: 03-13-2022 Patient encounter procedure Henry Ramos MD Work Phone: [facility] Start: 11-21-2021 End: 11-22-2021 Emergency department patient visit ROLAND E [facility] Start: 07-07-2021 End: 07-07-2021 Emergency department patient visit ROLAND Bernie [facility] Start: 07-07-2021 End: 07-07-2021 Emergency department patient visit Mayra Michel MD Work Phone: [facility] ED Comment on above: Dizziness (Primary D x); Dehydration Procedures Date Procedure Procedure Detail Performing Clinician Start: 09-29-2023 Follow-up visit Follow Up SOUTH SABA Start: 09-02-2023 Antibody screen JUAN SERRANO Comment on above: Order Comment: Speci men Type: BLOOD SPECIMEN Ordering Facility: [facility] Address: [address] [place] [address] Performed By: #### 5 [id number], [id number] #### [facility] CLIA [id number] [address] [place] [address] Start: 08-29-2023 Antibody screen JUAN SERRANO Comment on above: Order Comment: Speci men Type: BLOOD SPECIMEN Ordering Facility: [facility] Address: [address] [place] [address] Performed By: #### 5 [id number], [id number] #### [facility] CLIA [id number] [address] [place] [address] Start: 08-29-2023 Spmtry w/vc expirato ry bernie [...] w /collj spec when pfrmd Ernesto Chacko BETTY.CAR FILLER Work Phone: Start: 09-26-2022 Colonoscopy Leila Alamo MD Work Phone: Start: 11-02-2021 Antibody screen Comment on above: Order Comment: Trans fuse now? N Result Comment: PERF ORMED BY: [facility] [address] [address] PATHOLOGIST ZYGLO TECHNICIAN CLAIRE ANTHONY M.D. Start: 10-15-2021 Antibody screen Comment on above: Order Comment: Date of Surgery: [id number] # of PRBC units on hold?: 2 Result Comment: PERF ORMED BY: [facility] [address] [place] [address] PATHOLOGIST ZYGLO TECHNICIAN CLAIRE ANTHONY M.D. Start: 09-20-2021 Adult depression scr eening assessment Henry Ramos MD Work Phone: Start: 08-20-2021 Antibody screen Comment on above: Order Comment: Date of Surgery: [id number] # of PRBC units on hold?: 2 Result Comment: PERF ORMED BY: [facility] [address] [address] PATHOLOGIST ZYGLO TECHNICIAN CLAIRE ANTHONY M.D. Start: 07-07-2021 Urinalysis microscopic [...] Detail Author Start: 08-29-2026 Diabetes Screening Diabetes Screenrenetta [place] [facility] Start: 07-04-2026 DIABETES SCREEN DIABETES SCREEN [facility] Start: 07-04-2026 Diabetes Screening Diabetes Screenin g [facility] Start: 09-26-2023 Colonoscopy COLONOSCOPY [facility] Start: 09-26-2023 COLORECTAL CANCER SCREENING COLORECTAL CANCER SCREENING [facility] Start: 08-26-2023 End: 09-24-2024 SPIROMETRY BASELINE ONLY SPIROMETRY BASELINE ONLY PFT Routine ILD (interstitial lung disease) (HCC) Expected: 08/26/2023, Expires: 09/24/2024 [facility] Work Phone: Comment on above: Expected: 08/26/2023 , Expires: 09/24/2024 Start: 07-22-2023 End: 09-21-2023 CBC W Auto Differential panel - Blood CBC + DIFF Lab Routine Radiation proctitis Expected: 07/22/2023, Expires: 09/21/2023 [facility] Work Phone: Comment on above: Expected: 07/22/2023 , Expires: 09/21/2023 Start: 07-22-2023 End: 09-21-2023 Comprehensive metabolic 2000 panel - Serum or Plasma COMP METABOLIC PANEL Lab Routine Radiation proctitis Expected: 07/22/2023 (Approximate), Expires: 09/21/2023 [facility] Work Phone: Comment on above: Expected: 07/22/2023 (Approximate), Expires: 09/21/2023 Start: 07-18-2023 Covid-19 Vaccine () Covid-19 Vaccine () [facility] Start: 07-18-2023 Influenza vaccination C [facility] Start: 11-17-2022 DEPRESSION ASSESSMENT DEPRESSION ASS ESSMENT [facility] Start: 09-20-2022 Adult depression scr eening assessment DEPRESSION SCREENING [facility] Start: 08-12-2022 DIABETES SCREEN DIABETES SCREEN [facility] Start: 08-07-2022 End: 10-07-2022 CBC W Auto Differential panel - Blood CBC + DIFF Lab Routine Rectal bleeding Expected: 08/07/2022, Expires: 10/07/2022 [facility] Work Phone: Comment on above: Expected: 08/07/2022 , Expires: 10/07/2022 Start: 07-18-2022 Influenza vaccination C [facility] Start: 11-27-2021 COVID-19 VACCINE (3 - Booster for Moderna series) COVID-19 VACCINE (3 - Booster for Moderna series) [facility] Start: 11-17-2021 DEPRESSION ASSESSMENT DEPRESSION ASS ESSMENT [facility] Start: 08-22-2021 COVID-19 VACCINE (3 - Booster for Moderna series) COVID-19 VACCINE (3 - Booster for Moderna series) [facility] Start: 08-22-2021 COVID-19 VACCINE (3 - Moderna series) COVID-19 VACCINE (3 - Moderna series) [facility] Start: 07-18-2021 Influenza vaccination Flu vaccine (# 1) [employer] Work Phone: Start: 2020 RSV Vaccine (1 - 1-d ose 60+ series) RSV Vaccine (1 - 1-dose 60+ series) [facility] Start: 2010 SHINGRIX VACCINE (1 of 2) WESTON GRIX VACCINE (1 of 2) [facility] Start: 2005 COLOGUARD (FIT-DNA) COLOGUARD (FIT-D NA) [facility] Start: 2005 Colonoscopy COLONOSCOPY [facility] Start: 2005 COLORECTAL CANCER SCREENING COLORECTAL CANCER SCREENING [facility] Start: [address] COLONOGRAPHY [facility] Start: 2005 FECAL OCCULT BLOOD FECAL OCCULT BLOO D [facility] Start: 2005 Lipid 1996 panel - S marcela or Plasma Lipid Screening [facility] Start: 2005 LIPID SCREEN LIPID SCREEN [facility] Start: 2005 SIGMOIDOSCOPY SIGMOIDOSCOPY [facility] Start: 2000 Mammography [facility] Start: 1990 HPV TESTING HPV TESTING [facility] Start: 1981 PAP TESTING PAP TESTING [facility] Start: 1979 Urine microalbumin profile [facility] Start: 1978 ANNUAL PCP TEAM DIRECTOR OF SALES AND MARKETING SHAILA DISEASE VISIT ANNUAL PCP TEAM CHRONIC DISEASE VISIT [facility] Start: 1978 BP CONTROLLED (<130/80) BP CONTROLLE D (<130/80) [facility] Start: 1978 HEPATITIS C SCREENING HEPATITIS C SC ADELAIDA [facility] Start: 1978 HIV SCREENING HIV SCREENING [facility] End: 03-05-2024 Colonoscopy COLONOSCOPY (THERAPEUTIC) Endoscopy Routine Rectal bleeding 1 Occurrences starting 03/05/2023 until 03/05/2024 [facility] Work Phone: Comment on above: 1 Occurrences starti ng 03/05/2023 until 03/05/2024 End: 07-26-2024 Ct thorax w/o contrast material CT CHEST WO IVCON Radiology Routine Interstitial pulmonary disease (HCC) 1 Occurrences starting 06/27/2023 until 07/26/2024 [facility] Work Phone: Comment on above: 1 Occurrences starti ng 06/27/2023 until 07/26/2024 End: 07-07-2021 Culture, Urine Culture, Urine Microbiology Routine Once for 1 Occurrences starting 07/07/2021 until 07/07/2021 [facility] Work Phone: Comment on above: Once for 1 Occurrenc es starting 07/07/2021 until 07/07/2021 Culture, Urine Culture, Urine Microbiology Routine 07/07/2021 2:00 PM EDT [facility] Work Phone: End: 06-27-2024 Echocardiography ECHO Cardiology Routine Other secondary pulmonary hypertension (HCC) 1 Occurrences starting 06/27/2023 until 06/27/2024 [facility] Work Phone: Comment on above: 1 Occurrences starti ng 06/27/2023 until 06/27/2024 H&P for surgery H&P FOR SURGERY Procedures Routine Radiation proctitis Ordered: 07/22/2023 [facility] Work Phone: Comment on above: Ordered: 07/22/2023 End: 07-26-2024 LUNG DIFFUSION CAPACITY (DLCO) LUNG DIFFUSION CAPACITY (DLCO) PFT Routine Interstitial pulmonary disease (HCC) 1 Occurrences starting 06/27/2023 until 07/26/2024 [facility] Work Phone: Comment on above: 1 Occurrences starti ng 06/27/2023 until 07/26/2024 LUNG DIFFUSION CAPAC ITY (DLCO) LUNG DIFFUSION CAPACITY (DLCO) PFT Routine Interstitial pulmonary disease (HCC) 08/29/2023 9:27 AM EDT [facility] Work Phone: End: 07-26-2024 LUNG VOLUMES LUNG VOLUMES PFT Routine Interstitial pulmonary disease (HCC) 1 Occurrences starting 06/27/2023 until 07/26/2024 [facility] Work Phone: Comment on above: 1 Occurrences starti ng 06/27/2023 until 07/26/2024 End: 07-26-2024 Pulmonary ventilation & perfusion imaging NM LUNG VENT / PERF VQ Radiology Routine Other secondary pulmonary hypertension (HCC) 1 Occurrences starting 06/27/2023 until 07/26/2024 [facility] Work Phone: Comment on above: 1 Occurrences starti ng 06/27/2023 until 07/26/2024 REFER FOR ADMIT INTERVIEW REFER FOR ADMIT INTERVIEW Procedures Routine Radiation proctitis Ordered: 07/22/2023 [facility] Work Phone: Comment on above: Ordered: 07/22/2023 End: 08-07-2023 Screening colonoscopy COLONOSCOPY SCREENING Endoscopy Routine Rectal bleeding 1 Occurrences starting 08/07/2022 until 08/07/2023 [facility] Work Phone: Comment on above: 1 Occurrences starti ng 08/07/2022 until 08/07/2023 End: 09-26-2022 Screening colonoscopy COLONOSCOPY SCREENING Endoscopy Routine Rectal bleeding 1 Occurrences starting 09/26/2022 until 09/26/2022 [facility] Work Phone: Comment on above: 1 Occurrences starti ng 09/26/2022 until 09/26/2022 SPIROMETRY BASELINE ONLY SPIROME TRY BASELINE ONLY PFT Routine ILD (interstitial lung disease) (HCC) 08/29/2023 9:27 AM EDT [facility] Work Phone: SPIROMETRY WITH DILA TOR IF OBSTRUCTED SPIROMETRY WITH DILATOR IF OBSTRUCTED PFT Routine Dyspnea, unspecified type 06/27/2023 10:15 AM EDT [facility] Work Phone: [facility]I N [facility] Immunizations Immunization Date Immunization Notes Care Provider Fa landy 06-27-2021 COVID-19 vaccine, fu ll dose (MODERNA) Henry Ramos MD Work Phone: [facility] 11-21-2020 COVID-19 vaccine, fu ll dose (MODERNA) Henry Ramos MD Work Phone: [facility] Payers Date Payer Category Payer Unknown MMO MMO [employer] [id number] 2020-Present [phone] [address] [place] [address] PPO [id number] 2020 Unknown [id number] 1960 Unknown [id number] 74 1960 Unknown [id number] 74 1960 Unknown [id number] 93 1960 Unknown [id number] 93 1960 Unknown [id number] 93 1960 Unknown [id number] 93 1960 Unknown [id number] 93 1960 Unknown [id number] 93 1960 Unknown [id number] 93 1960 Unknown [id number] 259 1959 [facility] [id number] 1959 Unknown [id number] Social History Date Type Detail Facility Start: 07-07-2021 End: 08-07-2022 Tobacco smoking status NHIS Never smoker [facility] Start: 07-07-2021 End: 08-07-2022 Tobacco use and exposure Never used [facility] Start: 1960 Sex Assigned At Not on file M [facility] Work Phone: Start: 03-03-2022 End: 09-26-2022 Exposure to SARS-CoV-2 (event) Not sure [employer] Start: 03-13-2022 End: 09-29-2023 Alcohol intake Current drinker of alcohol (finding) [facility] Start: 07-28-2019 History SDOH Alcohol Comment 3 drinks per month [facility] Start: 03-05-2023 End: 06-27-2023 Sex Assigned At [facility] Start: 03-05-2023 End: 06-27-2023 History of Social function [facility] Adult Depression Screening Assessment 0 [facility] Clinical Notes 03-13-2022 to 10-23-2023 Note Date & Type Note Facility 10-23-2023 Evaluation note Encounter Date Diagnosis Assessment Notes Oct, Iron deficiency anemia due to chronic blood loss (ICD-10 - D50.0) 07 Dec, 2023 Decreased thyroid stimulating hormone (TSH) level (ICD-10 - R79.89) Oct, Pulmonary hypertension (ICD-10 - I27.20) [employer] Other [id number] NoteHNO ID: [id number] Author: [place] DO Service: ? Author Type: Physician Type: [...] mortality and/or complications of treatment plan: low [facility]11-13-2023 History of Present illness Narrative* [...] of treatment plan: low documented in [facility] encounterFort [facility]11-[facility] Evaluation note* Encounter Date Diagnosis Assessment Notes Treatment Notes Treatment Clinical Notes Sep, Iron deficiency anemia due to chronic blood loss (ICD-10 - D50.0) Sep, 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) [employer] [facility] 11-01-2023 Evaluation note* Encounter Date Diagnosis Assessment Notes Treatment Notes Treatment Clinical Notes Sep, Elevated liver enzymes (ICD-10 - R74.8) Sep, Cholestasis (ICD-10 - K83.1) Sep, Thyrotoxicosis 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 storm, 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 - E05.90) [employer] [facility] 10-30-2023 Evaluation note* Encounter Date Diagnosis Assessment Notes Treatment Notes Treatment Clinical Notes Aug, Decreased thyroid stimulating hormone (TSH) level (ICD-10 - R79.89) [employer] [facility] 10-27-2023 Evaluation note* Encounter Date Diagnosis [...] Ferritin May be candidate for Fe IV [employer] [facility] 10-18-2023 Evaluation note* Encounter Date Diagnosis Assessment Notes Treatment Notes Treatment Clinical Notes Aug, Radiation proctitis (ICD-10 - K62.7) Aug, Iron deficiency anemia due to chronic blood loss (ICD-10 - D50.0) [employer] [facility] 10-17-2023 NoteHNO ID: [id number] Author: Brannon Sung APRN.CRNA Service: ? 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 Author Type: Fellow Type: Progress Notes Filed: 08/29/2023 4:02 PM Note Text: Ms. Wdadell is a 63 year old female who presents to the [facility]. 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 Author Type: Registered Resp Therapist Type: Progress Notes Filed: 08/29/2023 9:52 AM Note Text: PULM FUNCTION SMARTBLOCK: Provider: Mike Presley MD Spirometry: 1 DLCO: 1 LV - Box: [facility] History and physical note* Elder Galan, BETTY.CAR FILLER - 08/29/2023 11:00 AM EDT COLON AND [...] Medical Decision Making: Assessment & Diagnosis: Isabel Wdadell is a 63 year old female here for a pre operative examination. Patient has the following medical conditions which may affect glaina-operative course Anemia - MARIAMA. Last Hgb 7.1. [...] of treatment plan: high documented in this encounterFort [facility] Hospital10-13-2023 NoteHNO ID: [id number] Author: Marshal Vasquez RT(R) Service: ? Author [...] BY: RT Tammy(R) August 29, 2023 9:10 [facility]10-13-2023 History of Present illness Narrative* Heidi Menard MD - 08/29/2023 10:00 AM EDT Images from the original note were not included. Ms. Waddell is a 63 year old female who presents to the [facility]. 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 Hobbies:Biking Vacation: [place], [place] No significant exposure history except local [...] MULTIVITAMIN TAB^Take one(1) tablet daily.^Disp: ^Rfl: 0 [id number]-BLV-FISH OIL-L.CASEI ORAL^Take by mouth once daily.^Disp: ^Rfl: [...] personally reviewed by me Data Reviewed from [facility] (in addition to that noted [...] MD Pulmonary and Critical Care Fellow [facility] Staff note: I have personally interviewed and [...] Hilton Adame MD 08/29/2023 documented in this encounterFort [facility] Hospital10-13-2023 History of Present illness Narrative* Sveta Roman RRT - 08/29/2023 9:52 AM EDT PULM FUNCTION SMARTBLOCK: Provider: Mike Presley MD Spirometry: 1 DLCO: 1 LV - Box: 1 documented in this encounterFort [facility] Hospital10-13-2023 History of Present illness Narrative* Marshal [...] 29, 2023 9:10 AM documented in this encounterFort [facility] Hospital10-10-2023 NoteHNO ID: [id number] Author: Gilberto Beth Service: ? Author Type: ? Type: Progress Notes Filed: 08/26/2023 4:28 PM Note Text: [place] to pair w dlco/lv [facility] History of Present illness Narrative* Gilberto Beth - 08/26/2023 4:16 PM EDT [place] to pair w dlco/lv on upcoming f/u visit documented in this encounterFort [facility] Hospital10-06-2023 NoteHNO ID: [id number] Author: Nuvia Grewal RT(R) Service: Radiology Author Type: Railroad Cook Type: Progress Notes Filed: 08/22/2023 8:34 AM [...] BY: RT Seth(R) August 22, 2023 8:33 AMDelta Community Medical [id number] History of Present illness Narrative* Nuvia Grewal [...] 22, 2023 8:33 AM documented in this encounterFort Hamilton Hospital09-18-2023 Evaluation note* Encounter Date Diagnosis Assessment [...] symptoms. Will initiate antibiotics and have called [facility]. Since her symptoms developed > 5 days ago, no Paxlovid has been prescribed Jul, Bronchitis, not specified as acute or chronic (ICD-10 - J40) Instructed to use Robitussin or Mucinex for cough, saline or Flonase NS for congestion, Tylenol for pain and fever. [employer] [facility] 09-05-2023 Miscellaneous Notes* Telephone Encounter - Divya Karimi - 07/22/2023 3:17 PM EDT Isabel Waddell accepts 09/01 and 09/02 dates for preop and surgery documented in this encounterFort Hamilton Hospital09-05-2023 Miscellaneous Notes* Telephone Encounter - Enid Baker - 07/22/2023 2:48 PM EDT [phone] Patient calling to reschedule her EUA. documented in this encounterFort Hamilton Hospital08-22-2023 Evaluation note* Encounter Date Diagnosis Assessment Notes Treatment Notes Treatment Clinical Notes Jun, SHERIF (generalized anxiety disorder) (ICD-10 - F41.1) [employer] [facility] 08-18-2023 History and physical note* South [...] regular bowel movements. 03/05/23 Juan Manuel Medina, CAR FILLER: Isabel Waddell is a 62 year old [...] HX Right 1984 breast cysts COLONOSCOPY 2003 COLONOSCOPY SCREENING 09/2022 [...] 150 mg by mouth daily at bedtime. [id number]-FISH OIL-L.CASEI ORAL Take by mouth once daily. [...] Documents Reviewed/ordered: Review of prior notes from WATER/WASTEWATER PROJECT MANAGER/ONC, pulmonary medicine Review of prior operative reports [...] of treatment plan: high documented in this encounterFort Hamilton Hospital08-11-2023 NoteHNO ID: [id number] Author: Heidi Menard MD Service: ? Author Type: Fellow Type: Progress Notes Filed: 06/29/2023 8:14 AM Note Text: Ms. Waddell is a 63 year old female who presents to the [facility]. Consultation requested by Self. 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 Silica: No significant exposure. [place]: No significant exposure. Organic HP antigen: No [...] Rectal, Enteric Tube, Stom (more content not included)...[facility]08-11-2023 NoteHNO ID: [id number] Author: Dayna Marley, FAMILIA Service: ? Author Type: Registered Resp Therapist Type: Progress Notes Filed: 06/27/2023 10:27 AM Note Text: PULM FUNCTION SMARTBLOCK: Provider: Pedro Rodarte MD Spirometry: 1 System: 3 - [id number] Memorial Hospital08-11-2023 History of Present illness Narrative* Heidi Menard MD - 06/27/2023 10:29 AM EDT Images from the original note were not included. Ms. Waddell is a 63 year old female who presents to the [facility]. Consultation requested by Self. 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 Silica: No significant exposure. [place]: No significant exposure. Organic HP antigen: No [...] 150 mg by mouth daily at bedtime. [id number]-WNV-FISH OIL-L.CASEI ORAL Take by mouth once daily. [...] personally reviewed by me Data Reviewed from [facility] (in addition to that noted [...] MD Pulmonary and Critical Care Fellow [facility] STAFF ATTENDING NOTE I have personally interviewed [...] Mike Thompson MD 06/29/2023 documented in this encounterFort Hamilton Hospital08-11-2023 History of Present illness Narrative* Dayan Marley RRT - 06/27/2023 10:26 AM EDT PULM FUNCTION SMARTBLOCK: Provider: Pedro Rodarte MD Spirometry: 1 System: MC3 - [id number] documented in this encounterFort Hamilton Hospital07-07-2023 Evaluation note* Encounter Date Diagnosis Assessment [...] and feet daily for blisters and ulcerations. [employer] [facility] 06-27-2023 Evaluation note* Encounter Date Diagnosis Assessment Notes Treatment Notes Treatment Clinical Notes Apr, History of total right hip replacement (ICD-10 - Z96.641) [employer] [facility] 06-07-2023 Evaluation note* Encounter Date Diagnosis [...] F41.1) Healthy diet, exercise and keep active [employer] Other 2023 Evaluation note* Encounter Date Diagnosis Assessment Notes Treatment Notes Treatment Clinical Notes March, Mild intermittent asthma without complication (ICD-10 - J45.20) [employer] [facility] 05-05-2023 Evaluation note* Encounter Date Diagnosis Assessment Notes Treatment Notes Treatment Clinical Notes March, Dyspnea on exertion (ICD-10 - R06.09) [employer] [facility] 04-24-2023 Evaluation note* Encounter Date Diagnosis Assessment Notes Treatment Notes Treatment Clinical Notes Feb, Shortness of breath (ICD-10 - R06.02) Feb, Subacute cough (ICD-10 - R05.2) [employer] [facility] 04-19-2023 Instructions* Patient Instructions* Juan Manuel Medina APRN.CAR FILLER - 03/05/2023 9:47 AM EDT Images from the original note were not included. Thank you for seeing me in clinic today. As we discussed, my recommendations are as follows: 1.Colonoscopy If you have any questions about the above treatment plan, please do not hesitate to call the officeor send me a [employer] message. Bowel Preparation Instructions for: Miralax-Gatorade Preparations [...] If you do not have a responsible concrete truck driver (family member or friend) withyou to take you home, your exam cannot be done with sedation and will be cancelled. Please bring a list of all of your current medications, including any Wzsz-dco-Skivaay medications with you. Medications If you take [...] your exam. 2 10/2019 documented in this encounterFort Hamilton Hospital04-19-2023 History and physical note * Juan [...] Abs Lymph 1.00 - 4.00 k/uL 1.31 Dickenson% % 11.1 Abs Dickenson <0.87 k/uL 0.50 Eosin% % 3.1 Abs [...] 150 mg by mouth daily at bedtime. [id number]-YIG-FISH OIL-L.CASEI ORAL Take by mouth once daily. [...] -radiation proctitis?? This note was dictated using Zelnas speech recognition software and may contain some errors that were a result of the program not accurately transcribing what was dictated. Juan Manuel Medina APRN.MONSERRAT documented in this encounterFort Hamilton Hospital03-10-2023 Evaluation note* Encounter Date Diagnosis Assessment Notes Treatment Notes Treatment Clinical Notes Jan, Acute bronchitis due to other specified organisms (ICD-10 - J20.8) Instructed to use Robitussin or Mucinex for cough, saline or Flonase NS for congestion, Tylenol for pain and fever. [employer] [facility] 03-06-2023 Evaluation note* Encounter Date Diagnosis [...] weeks for the cough to go away [employer] [facility] 02-17-2023 NoteHNO ID: [id number] Author: Henry Ramos MD Service: ? Author Type: Physician Type: Progress Notes Filed: 01/12/2023 11:27 PM Note Text: Gynecologic Oncology [facility] Follow up visit Date of service: [...] differentiation, FIGO grade 2. Neg LVSI, 13% [place] pT1a (IA): Tumor limited to endometrium or invades less than 1/2 of the myometrium 05/25/2021 Vaginal biopsy Vagina, biopsy - Consistent with endometrioid adenocarcinoma (see comment). GZ/ka 05/28/2021 COMMENT The tumor cells are diffusely and strongly positive for immunohistochemical stain for [place] 8, supporting the above diagnosis. The patient [...] Right 1983 breast cysts COLONOSCOPY 2003 DILATION AND CURETTAGE [...] 150 mg by mouth daily at bedtime. [id number]-LZB-FISH OIL-L.CASEI ORAL Take by mouth once daily. Lactobac no.41/Bifidobact no.7 (PROBIOTIC-10 ORAL) Take by mouth once daily. MULTIVITAMIN TAB Take (more content not included)...[facility] 01-03-2023 History of Present illness Narrative* Henry Ramos MD - 01/03/2023 3:20 PM EST Gynecologic Oncology [facility] Follow up visit Date of service: [...] differentiation, FIGO grade 2. Neg LVSI, 13% [place] pT1a (IA): Tumor limited to endometrium or invades less than 1/2 of the myometrium 05/25/2021 Vaginal biopsy Vagina, biopsy - Consistent with endometrioid adenocarcinoma (see comment). THELMA/ka 05/28/2021 COMMENT The tumor cells are diffusely and strongly positive for immunohistochemical stain for [place] 8, supporting the above diagnosis. The patient [...] 150 mg by mouth daily at bedtime. [id number]-HHJ-WMS-FISH OIL-L.CASEI ORAL Take by mouth once daily. [...] has a trip planned to [facility] next week for 10 days. PHYSICAL EXAM: [...] or swelling. Deep tendon reflexes are present Cougar Hunter for exam: Gurpreet Villarreal APRN.CNP RESULTS: CA 125 (U/mL) Date Value 12/13/2021 9 06/04/2021 8 07/12/2019 15 No new results to review ASSESSMENT & PLAN: 05/25/2021-Dee Dee Carter APRN.CAR FILLER [place] endometrioid type endometrial adenocarcinoma, FIGO grade [...] review with PCP 05/30/2021- Dee Dee Carter APRN.CAR FILLER (distance health visit) 61 yo female with [...] her today already. Test vaginal lesion for ER/IN receptors See me September 19 for post [...] hyperthyroidism, advised follow up with PCP and Box Car Washer. Ernesto Chacko APRN.CAR FILLER 03/13/2022 Recurrent Endometrial cancer with recurrence in [...] ferritin. Recommend she start following with a [facility] program control analyst for her rectal bleeding. We will assistwith [...] 03, 2023 4:37 PM documented [facility] encounter[facility] Miscellaneous Notes* Telephone Encounter - Aretha [...] 12/25/2022 2:19 PM EST ----- Message from [employer] sent at 12/25/2022 12:04 PM EST ----- Regarding: [place] Patient bleeding and clotting almost daily since Colonoscopy. September was the Colonoscopy. Concerned and would like to know if she should schedule an appointment. [phone] documented in this encounterFort [facility]11-[facility]22 Nurse Note* Francisca Gómez RN - [...] RN In Department: GASTROENTEROLOGY documented in this encounterFort [facility] Hospital11-10-2022 Miscellaneous Notes* Sedation Documentation - Aretha Deluna RN - 09/26/2022 12:00 PM EST Grounding pad placed at right flank. Skin Intact. LOT#[id number]. documented in this encounterFort [facility]11-03-2022 Miscellaneous Notes* Telephone Encounter - Kelly Ch MA - 09/19/2022 3:49 PM EDT Attempted to reach the patient at the contact number that they provided [phone] (home) . 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 1 10/2019 Bowel Preparation Instructions for: Golytely, Nulytely, [...] your exam. 2 10/2019 documented in this encounterFort [facility] Hospital09-21-2022 History of Present illness Narrative* Henry Ramos MD - 08/07/2022 3:20 PM EDT Gynecologic Oncology [facility] Follow up visit Date of service: [...] differentiation, FIGO grade 2. Neg LVSI, 13% [place] pT1a ([place]): Tumor limited to endometrium or invades less than 1/2 of the myometrium 05/25/2021 Vaginal biopsy Vagina, biopsy - Consistent with endometrioid adenocarcinoma (see comment). GZ/ka 05/28/2021 COMMENT The tumor cells are diffusely and strongly positive for immunohistochemical stain for [place] 8, supporting the above diagnosis. The patient [...] 150 mg by mouth daily at bedtime. [id number]-FISH OIL-L.CASEI ORAL Take by mouth once daily. [...] groin. LOWER EXTREMITIES: No swelling or edema. Cougar Hunter for exam: Promise Mclaughlin MA RESULTS: 05/25/2021 - VAGINAL BIOPSY Vagina, biopsy - Consistent with endometrioid adenocarcinoma (see comment). THELMA/fiorella 05/28/2021 COMMENT The tumor cells are diffusely and strongly positive for immunohistochemical stain for [place] 8, supporting the above diagnosis. The patient [...] dedicated report for findings in the abdomen Chlorine Operator (topogram) images: None CA 125 (U/mL) Date Value 12/13/2021 9 06/04/2021 8 07/12/2019 15 ASSESSMENT & PLAN: 05/25/2021-Dee Dee Carter APRN.CAR FILLER [place] endometrioid type endometrial adenocarcinoma, FIGO grade [...] symptoms - Referral to Dr. Sita Naidu Health Maintenance - Mammogram gets this done locally, will review with PCP - Colonoscopy due, will review with PCP 05/30/2021- Dee Dee Carter APRN.CAR FILLER (distance health visit) 61 yo female with [...] her today already. Test vaginal lesion for ER/IN receptors See me September 19 for post [...] hyperthyroidism, advised follow up with PCP and Box Car Washer. Ernesto Chacko APRN.CAR FILLER 03/13/2022 Recurrent Endometrial cancer with recurrence in [...] 07, 2022 4:19 PM documented in this encounterFort [facility] Hospital04-27-2022 History of Present illness Narrative* Henry Ramos MD - 03/13/2022 2:50 PM EDT Gynecologic Oncology [facility] Follow up visit Date of service: [...] differentiation, FIGO grade 2. Neg LVSI, 13% [place] pT1a ([place]): Tumor limited to endometrium or invades less than 1/2 of the myometrium 05/25/2021 Vaginal biopsy Vagina, biopsy - Consistent with endometrioid adenocarcinoma (see comment). GZ/ka 05/28/2021 COMMENT The tumor cells are diffusely and strongly positive for immunohistochemical stain for [place] 8, supporting the above diagnosis. The patient [...] 150 mg by mouth daily at bedtime. [id number]-MUY-FISH OIL-L.CASEI ORAL Take by mouth once daily. [...] absent LOWER EXTREMITIES: No swelling or edema. Cougar Hunter for exam: [facility] RESULTS: 05/25/2021 - VAGINAL BIOPSY Vagina, biopsy - Consistent with endometrioid adenocarcinoma (see comment). GZ/ka 05/28/2021 COMMENT The tumor cells are diffusely and strongly positive for immunohistochemical stain for [place] 8, supporting the above diagnosis. The patient [...] dedicated report for findings in the abdomen Chlorine Operator (topogram) images: None CA 125 (U/mL) Date Value 12/13/2021 9 06/04/2021 8 07/12/2019 15 ASSESSMENT & PLAN: 05/25/2021-Dee Dee Carter APRN.CAR FILLER [place] endometrioid type endometrial adenocarcinoma, FIGO grade [...] symptoms - Referral to Dr. Sita Naidu Health Maintenance - Mammogram gets this done locally, will review with PCP - Colonoscopy due, will review with PCP 05/30/2021- Dee Dee Carter APRN.CAR FILLER (distance health visit) 61 yo female with [...] her today already. Test vaginal lesion for ER/IN receptors See hi September 19 for post treatment exam. 11/28/2021 [...] hyperthyroidism, advised follow up with PCP and Box Car Washer. Ernesto Chacko APRN.CAR FILLER 03/13/2022 Recurrent Endometrial cancer with recurrence in [...] By signing my name below, I, Brittnee Styles, attest that this documentation has been prepared under the direction and in the presence of Henry Ramos MD. Electronically signed:Blu Miller, March 17, 2022 12:03 AM I agree with the Chief Complaint, ROS, and Past Histories independently gathered by the clinical cell support operator and the remaining scribed note accurately describes my personal service to the patient. [facility]* Diagnosis Dizziness- Primary Dizziness and giddiness Dehydration documented in this encounter [employer] Phone: evaluation note* Diagnosis Recurrent carcinoma of endometrium (HCC)- Primary Malignant neoplasm of corpus uteri, except isthmus Vaginal atrophy Postmenopausal atrophic vaginitis Foreshortening of vagina [facility]* Diagnosis Recurrent carcinoma of endometrium (HCC)- Primary Malignant neoplasm of corpus uteri, except isthmus Radiation proctitis Other specified disorder of rectum and anus Foreshortening of vagina Endometrial cancer (HCC) Malignant neoplasm of corpus uteri, except isthmus Vaginal atrophy Postmenopausal atrophic vaginitis Rectal bleeding Hemorrhage of rectum and anus documented in this encounter [facility]* Diagnosis History of thyroid disease- Primary Personal history of other endocrine, metabolic, and immunity disorders Rectal bleeding Hemorrhage of rectum and anus documented [facility] this [facility]* Diagnosis Recurrent carcinoma of endometrium (HCC)- Primary Malignant neoplasm of corpus uteri, except isthmus Radiation proctitis Other specified disorder of rectum and anus Blood per rectum Hemorrhage of rectum and anus documented in this encounter [facility] noteNo Site LockPurdin [employer] Other Evaluation note* Diagnosis Rectal bleeding- Primary Hemorrhage of rectum and anus documented in this encounter [facility]* Diagnosis Radiation proctitis- Primary Other specified disorder of rectum and anus documented in this encounter [facility]* Diagnosis Dyspnea, unspecified type- Primary documented in this encounter [facility]* Diagnosis 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) documented in this encounter [facility]* Diagnosis Radiation proctitis- Primary Other specified disorder of rectum and anus documented in this encounter [facility]* Diagnosis Endometrial cancer (HCC)- Primary Malignant neoplasm of corpus uteri, except isthmus Radiation proctitis Other specified disorder of rectum and anus Radiation proctitis Other specified disorder of rectum and anus documented in this encounter [facility]* Diagnosis Radiation proctitis- Primary Other specified disorder of rectum and anus documented in this encounter [facility]* Diagnosis ILD (interstitial lung disease) (HCC)- Primary Postinflammatory pulmonary fibrosis Radiation proctitis Other specified disorder of rectum and anus documented in this encounter [facility]* Diagnosis ILD (interstitial lung disease) (HCC) Postinflammatory pulmonary fibrosis Radiation proctitis Other specified disorder of rectum and anus documented in this encounter [facility]* Diagnosis Interstitial pulmonary disease (HCC) Postinflammatory pulmonary fibrosis Radiation proctitis Other specified disorder of rectum and anus documented in this encounter [facility]* Diagnosis Dyspnea and respiratory abnormalities- Primary Other dyspnea and respiratory abnormality Calcified nodule Localized superficial swelling, mass, or lump Iron deficiency anemia due to chronic blood loss Iron deficiency anemia secondary to blood loss (chronic) Radiation proctitis Other specified disorder of rectum and anus documented in this encounter [facility]* Diagnosis Dyspnea, unspecified type Radiation proctitis Other specified disorder of rectum and anus documented in this encounter [facility]* Diagnosis Pre-op evaluation- Primary Preoperative examination, unspecified Radiation proctitis Other specified disorder of rectum and anus documented in this encounter [facility]* Diagnosis Interstitial pulmonary disease (HCC) Postinflammatory pulmonary fibrosis documented in this encounter [facility] note* Diagnosis Radiation proctitis- Primary Other specified disorder of rectum and anus Endometrial cancer (HCC) Malignant neoplasm of corpus uteri, except isthmus documented in [facility] general Narrative - Reported* Type Description Date Medical History menopause Medical History endometrial cancer hx Surgical History Bilateral Knee Scope Surgical History Bilateral Shoulder Scope Surgical History Bilateral Carpal Tunnel Surgical History x 3 Surgical History Pituatary Tumor Surgical History hysterectomy Surgical History right thumb excision of trapezi um 09/14/2020 [employer] Other [employer] general Narrative - Reported* Type Description Date Medical History menopause Medical History endometrial cancer hx Surgical History Bilateral Knee Scope Surgical History Bilateral Shoulder Scope Surgical History Bilateral Carpal Tunnel Surgical History x 3 Surgical History Pituatary Tumor Surgical History hysterectomy Surgical History right thumb excision of trapezi um 09/14/2020 Hospitalization History see surgical history [employer] Other [employer] general Narrative - Reported* Type Description Date Medical History menopause Medical History endometrial cancer hx Medical History Dilated Cardiomyopathy Surgical History Bilateral Knee Scope Surgical History Bilateral Shoulder Scope Surgical History Bilateral Carpal Tunnel Surgical History x 3 Surgical History Pituatary Tumor Surgical History hysterectomy Surgical History right thumb excision of trapezi um 09/14/2020 Hospitalization History see surgical history [employer] Other [employer] general Narrative - Reported* Type Description Date Medical History menopause Medical History endometrial cancer hx Medical History Dilated Cardiomyopathy Surgical History Bilateral Knee Scope Surgical History Bilateral Shoulder Scope Surgical History Bilateral Carpal Tunnel Surgical History x 3 Surgical History Pituatary Tumor Surgical History hysterectomy Surgical History right thumb excision of trapezi um 09/14/2020 Surgical History Sigmoidoscopy 08/2023 Hospitalization History see surgical history [employer] Other [employer] general Narrative - Reported* Type Description Date [...] Sigmoidoscopy 08/2023 Hospitalization History see surgical history [employer] Other Hospital Discharge instructions* Attachments The following attachments cannot be sent through Care Everywhere. * Dehydration (Thai) * Oral Rehydration (Thai) [facility] Phone: reason for referral (narrative)* Outpatient Procedure (Routine) - Closed Specialty Diagnoses / Procedures Referred By Contac t Referred To Contact [facility] Diagnoses Rectal bleeding Procedures COLONOSCOPY SCREENING COLONOSCOPY FLX DX W/COLLJ SPEC WHEN Ernesto Noble APRN.CNP [address] [place] [address] [address] Referral ID Status Reason Start Date Expiration Date V isits Requested Visits Authorized [id number] Closed Auto-Generate d Referral 08/07/2022 08/07/2023 1 1 [facility] for referral (narrative)* Outpatient Procedure (Routine) - Pending Review Specialty Diagnoses / Procedures Referred By Contac t Referred To Contact [facility] Diagnoses Rectal bleeding Procedures COLONOSCOPY (THERAPEUTIC) COLONOSCOPY FLX ABLATION TUMOR POLYP/OTHER Juan Manuel Mendoza APRN.CAR FILLER [address] [place] [address] [place] [address] [address] Referral ID Status Reason Start Date Expiration Date Visits Requested Visits Authorized [id number] Pending Review Auto-Generat ed Referral 03/05/2023 03/05/2024 1 1 [facility] for referral (narrative)* Outpatient Procedure (Routine) - Authorized Specialty Diagnoses / Procedures Referred By Contac t Referred To Contact [facility] Diagnoses Other secondary pulmonary hypertension (HCC) Procedures ECHO ECHO TTHRC R-T 2D W/WOM-MODE COMPL SPEC&COLR D Mike Presley MD [address] [place] [address] [facility] [address] [place] [address] Referral ID Status Reason Start Date Expiration Date Visits Requested Visits Authorized [id number] Authorized Auto-Generat ed Referral 06/27/2023 06/26/2024 1 1 * Diagnostic Procedure Only (Routine) - Pending Review Specialty Diagnoses / Procedures Referred By Kelly alberts Referred To Contact [facility] Diagnoses Other secondary pulmonary hypertension (HCC) Procedures NM LUNG VENT / PERF VQ PULMONARY VENTILATION & PERFUSION IMAGING Mike Presley MD [address] [place] [address] [facility] [address] [place] [address] Referral ID Status Reason Start Date Expiration Date Visits Requested Visits Authorized [id number] Pending Review Auto-Generat ed Referral 06/27/2023 07/26/2024 1 1 * Outpatient Procedure (Routine) - Pending Review Specialty Diagnoses / Procedures Referred By Kelly alberts Referred To [facility] Diagnoses Interstitial pulmonary disease (HCC) Procedures LUNG VOLUMES Mike Presley MD [address] [place] [address] [facility] [place] [address] [place] [address] Referral ID Status Reason Start Date Expiration Date Visits Requested Visits Authorized [id number] Pending Review Auto-Generat ed Referral 06/27/2023 07/26/2024 1 1 * Outpatient Procedure (Routine) - Authorized Specialty Diagnoses / Procedures Referred By Kelly alberts Referred To Contact [facility] Diagnoses Interstitial pulmonary disease (HCC) Procedures LUNG DIFFUSION CAPACITY (DLCO) DIFFUSING CAPACITY Mike Presley MD [address] [place] [address] [address] [address] Referral ID Status Reason Start Date Expiration Date Visits Requested Visits Authorized [id number] Authorized Auto-Generat ed Referral 06/27/2023 07/26/2024 1 1 * MRI/CT (Routine) - Authorized Specialty Diagnoses / Procedures Referred By Kelly alberts Referred To Contact CT IMAGING Diagnoses Interstitial pulmonary disease (HCC) Procedures CT CHEST WO IVCON DIAGNOSTIC COMPUTED TOMOGRAPHY THORAX W/O CNTRST Mike Presley MD [address] [place] [address] [address] [facility] Referral ID Status Reason Start Date Expiration Date Visits Requested Visits Authorized [id number] Authorized Auto-Generat ed Referral 06/27/2023 07/26/2024 1 1 [facility] for referral (narrative)* Outpatient Procedure (Routine) - Authorized Specialty Diagnoses / Procedures Referred By Kelly alberts Referred To Contact [facility] Diagnoses ILD (interstitial lung disease) (HCC) Procedures SPIROMETRY BASELINE ONLY SPMTRY W/VC EXPIRATORY BERNIE W/WO MXML VOL VNTJ Mike Presley MD [address] [place] [address] [facility] [address] [place] [address] Referral ID Status Reason Start Date Expiration Date Visits Requested Visits Authorized [id number] Authorized Auto-Generat ed Referral 09/24/2024 1 1 [facility] for visit Narrative* Outpatient Procedure (Routine) - Closed Specialty Diagnoses / Procedures Referred By Contac t Referred To Contact [facility] Diagnoses Rectal bleeding Procedures COLONOSCOPY SCREENING COLONOSCOPY FLX DX W/COLLJ SPEC WHEN PFErnesto Iglesias APRN.CAR FILLER [address] [place] [address] [facility] [address] [place] [address] Referral ID Status Reason Start Date Expiration Date V isits Requested Visits Authorized [id number] Closed Auto-Generate d Referral 08/07/2022 08/07/2023 1 1 [facility] Purpose Family History No Family History Records FoundNo Family History Records FoundNo Family History Records FoundNo Family History Records FoundNo Family History Records FoundNo Family History Records FoundNo Family History Records Found Advance Directives Documents on File Type Date Recorded Patient Fisher Crab 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 Advance Directive(s) 08/12/2019 10:47 AM Advance Directive(s) 07/28/2019 9:20 AM Documents on File Type Date Recorded Patient Fisher Crab 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 Advance Directive(s) 07/28/2019 9:20 AM Documents on File Type Date Recorded Patient Fisher Crab 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 Advance Directive(s) 07/28/2019 9:20 AM Reason for Referral Specialty Diagnoses / Procedures Referred By Contac t Referred To Contact Gastroenterology Diagnoses Rectal bleeding Procedures CONSULT TO GASTROENTEROLOGY OFFICE/OUTPATIENT [facility] 60-74 MINUTES Ernesto Chacko APRN.CAR FILLER [address] [place] [address] Referral ID Status Reason Start Date Expiration Date Visits Requested Visits Authorized [id number] Authorized PCP Requested Referral 08/07/2022 08/07/2023 1 1 Specialty Diagnoses / Procedures Referred By Contac t Referred To Contact [facility] Diagnoses Rectal bleeding Procedures COLONOSCOPY SCREENING COLONOSCOPY FLX DX W/COLLJ SPEC WHEN PFErnesto Iglesias APRN.CAR FILLER [address] [place] [address] [facility] [address] [place] [address] Referral ID Status Reason Start Date Expiration Date Visits Requested Visits Authorized [id number] Pending Review Auto-Generat ed Referral 08/07/2022 08/07/2023 1 1 Specialty Diagnoses / Procedures Referred By Kelly alberts Referred To Contact CT IMAGING Diagnoses Interstitial pulmonary disease (HCC) Procedures CT CHEST WO IVCON DIAGNOSTIC COMPUTED TOMOGRAPHY THORAX W/O CNTRST Mike Presley MD [address] [place] [address] [place] [address] Referral ID Status Reason Start Date Expiration Date V isits Requested Visits Authorized [id number] Closed Auto-Generate d Referral 06/27/2023 07/26/2024 1 1 Reason Iron deficiency anem ia Diagnosis 1 Iron deficiency anem ia due to chronic blood loss (D50.0) [facility]erral [facility] Referring Provider First Name Roland Referring Provider Last Name Maggie Referring Provider Specialty Internal Me dicine Referred Organization [facility] Referred Provider NGA TATUM Referred Address [address] [place], [place],[address] Referred Provider Specialty Hematology Referral Priority Routine General Notes Mrs. Waddell is being r eferred for symptomatic iron deficiency anemia. 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 She has completed endoscopic treatment for her chronic bleeding and has received 2 units of PRBC [facility]. I am referring [...] CREATED AUTHOR AUTHOR'S ORGANIZ ATION 11/23/2021 [facility] DATE CREATED AUTHOR AUTHOR'S ORGANIZ ATION 03/20/2022 [facility] DATE CREATED AUTHOR AUTHOR'S ORGANIZ ATION 03/28/2023 [facility]ital DATE CREATED AUTHOR AUTHOR'S ORGANIZ ATION 08/25/2023 [facility] DATE CREATED AUTHOR AUTHOR'S ORGANIZ ATION 10/04/2023 [facility] d[facility] Specialists EPIC DATE CREATED AUTHOR AUTHOR'S ORGANIZ ATION 10/09/2023 [facility] Reason for Visit (unrecogniz ed section and content) Lab results Reason Comments Dizziness Pt c/o shortness of [...] Rectal bleeding Procedures CONSULT TO GASTROENTEROLOGY OFFICE/OUTPATIENT [facility] 60-74 MINUTES rEnesto Chacko APRN.CAR FILLER [address] [place] [address] Referral ID Status Reason Start Date Expiration Date V isits Requested Visits Authorized [id number] Closed PCP Requested Referral 08/07/2022 08/07/2023 1 1 Reason Comments Spirometry Specialty Diagnoses / Procedures Referred By Contsarika t Referred To Contact [facility] Diagnoses Dyspnea, unspecified type Procedures SPIROMETRY WITH DILATOR IF OBSTRUCTED BRNCDILAT RSPSE SPMTRY PRE&POST-BRNCDILAT ADMN Pedro Rodarte MD [address] [place] [address] [facility] [address] [place] [address] Referral ID Status Reason Start Date Expiration Date V isits Requested Visits Authorized [id number] Closed Auto-Generate d Referral 05/23/2023 06/21/2024 1 1 Reason Comments New Reason Comments New Radiation proctitis Specialty Diagnoses / Procedures Referred By Contac t Referred To Contact Colon and Rectal Surgery Diagnoses Radiation proctitis Procedures CONSULT TO COLO-RECTAL SURGERY OFFICE/OUTPATIENT NEW HIGH MDM 60-74 MINUTES Gurpreet Villarreal APRN.[employer]ER [address] [place] [address] [place] DO [address] [place] [address] Referral ID Status Reason Start Date Expiration Date V isits Requested Visits Authorized [id number] Closed PCP Requested Referral 05/16/2023 05/15/2024 1 1 Reason Comments Patient Update Specialty Diagnoses / Procedures Referred By Contac t Referred To [facility] Diagnoses ILD (interstitial lung disease) (HCC) Procedures SPIROMETRY BASELINE ONLY SPMTRY W/VC EXPIRATORY BERNIE W/WO MXML VOL VNTJ Mike Presley MD [address] [place] [address] [facility] [place] [address] [place] [address] Referral ID Status Reason Start Date Expiration Date V isits Requested Visits Authorized [id number] Closed Auto-Generate d Referral 08/26/2023 09/24/2024 1 1 Specialty Diagnoses / Procedures Referred By Contac t Referred To [facility] Diagnoses Interstitial pulmonary disease (HCC) Procedures LUNG DIFFUSION CAPACITY (DLCO) DIFFUSING CAPACITY Mike Presley MD [address] [place] [address] [address] Referral ID Status Reason Start Date Expiration Date V isits Requested Visits Authorized [id number] Closed Auto-Generate d Referral 06/27/2023 07/26/2024 1 1 Reason Comments Radio Gen A21 Reason Comments Pre-Op Exam Specialty Diagnoses / Procedures Referred By Contac t Referred To Contact CT IMAGING Diagnoses Interstitial pulmonary disease (HCC) Procedures CT CHEST WO IVCON DIAGNOSTIC COMPUTED TOMOGRAPHY THORAX W/O CNTRST Mike Presley MD [address] [place] [address] [place] [address] Referral ID Status Reason Start Date Expiration Date V isits Requested Visits Authorized [id number] Closed Auto-Generate d Referral 06/27/2023 07/26/2024 1 [...] or prosecute any alcohol or drug abuse patient.[facility] Hospital[facility] the event this information is protected by the Federal Confidentiality of Alcohol and Drug Abuse Patient Records regulations: The Federal rules restrict any use of the information to criminally investigate or prosecute any alcohol or drug abuse patient.[facility] HospitalIn the event this information is protected by the Federal Confidentiality of Alcohol and Drug Abuse Patient Records regulations: The Federal rules restrict any use of the information to criminally investigate or prosecute any alcohol or drug abuse patient.[facility]In the event this information is protected by the Federal Confidentiality of Alcohol and Drug Abuse Patient Records regulations: The Federal rules restrict any use of the information to criminally investigate or prosecute any alcohol or drug abuse patient.[facility] HospitalIn the event this information is protected by the Federal Confidentiality of Alcohol and Drug Abuse Patient Records regulations: The Federal rules restrict any use of the information to criminally investigate or prosecute any alcohol or drug abuse patient.[facility] HospitalIn the event this information is protected by the Federal Confidentiality of Alcohol and Drug Abuse Patient Records regulations: The Federal rules restrict any use of the information to criminally investigate or prosecute any alcohol or drug abuse patient.[facility] HospitalIn the event this information is protected by the Federal Confidentiality of Alcohol and Drug Abuse Patient Records regulations: The Federal rules restrict any use of the information to criminally investigate or prosecute any alcohol or drug abuse patient.[facility] HospitalIn the event this information is protected by the Federal Confidentiality of Alcohol and Drug Abuse Patient Records regulations: The Federal rules restrict any use of the information to criminally investigate or prosecute any alcohol or drug abuse patient.[facility] HospitalIn the event this information is protected by the Federal Confidentiality of Alcohol and Drug Abuse Patient Records regulations: The Federal rules restrict any use of the information to criminally investigate or prosecute any alcohol or drug abuse patient.[facility]In the event this information is protected by the Federal Confidentiality of Alcohol and Drug Abuse Patient Records regulations: The Federal rules restrict any use of the information to criminally investigate or prosecute any alcohol or drug abuse patient.[facility] HospitalIn the event this information is protected by the Federal Confidentiality of Alcohol and Drug Abuse Patient Records regulations: The Federal rules restrict any use of the information to criminally investigate or prosecute any alcohol or drug abuse patient.[facility] HospitalIn the event this information is protected by the Federal Confidentiality of Alcohol and Drug Abuse Patient Records regulations: The Federal rules restrict any use of the information to criminally investigate or prosecute any alcohol or drug abuse patient.[facility] HospitalIn the event this information is protected by the Federal Confidentiality of Alcohol and Drug Abuse Patient Records regulations: The Federal rules restrict any use of the information to criminally investigate or prosecute any alcohol or drug abuse patient.[facility] HospitalIn the event this information is protected by the Federal Confidentiality of Alcohol and Drug Abuse Patient Records regulations: The Federal rules restrict any use of the information to criminally investigate or prosecute any alcohol or drug abuse patient.[facility] HospitalIn the event this information is protected by the Federal Confidentiality of Alcohol and Drug Abuse Patient Records regulations: The Federal rules restrict any use of the information to criminally investigate or prosecute any alcohol or drug abuse patient.[facility] HospitalIn the event this information is protected by the Federal Confidentiality of Alcohol and Drug Abuse Patient Records regulations: The Federal rules restrict any use of the information to criminally investigate or prosecute any alcohol or drug abuse patient.[facility] HospitalIn the event this information is protected by the Federal Confidentiality of Alcohol and Drug Abuse Patient Records regulations: The Federal rules restrict any use of the information to criminally investigate or prosecute any alcohol or drug abuse patient.[facility] HospitalIn the event this information is protected by the Federal Confidentiality of Alcohol and Drug Abuse Patient Records regulations: The Federal rules restrict any use of the information to criminally investigate or prosecute any alcohol or drug abuse patient.[facility] HospitalIn the event this information is protected by the Federal Confidentiality of Alcohol and Drug Abuse Patient Records regulations: The Federal rules restrict any use of the information to criminally investigate or prosecute any alcohol or drug abuse patient.[facility] HospitalIn the event this information is protected by the Federal Confidentiality of Alcohol and Drug Abuse Patient Records regulations: The Federal rules restrict any use of the information to criminally investigate or prosecute any alcohol or drug abuse patient.[facility] HospitalIn the event this information is protected by the Federal Confidentiality of Alcohol and Drug Abuse Patient Records regulations: The Federal rules restrict any use of the information to criminally investigate or prosecute any alcohol or drug abuse patient.[facility] HospitalIn the event this information is protected by the Federal Confidentiality of Alcohol and Drug Abuse Patient Records regulations: The Federal rules restrict any use of the information to criminally investigate or prosecute any alcohol or drug abuse patient.[facility] HospitalIn the event this information is protected by the Federal Confidentiality of Alcohol and Drug Abuse Patient Records regulations: The Federal rules restrict any use of the information to criminally investigate or prosecute any alcohol or drug abuse patient.[facility] HospitalIn the event this information is protected by the Federal Confidentiality of Alcohol and Drug Abuse Patient Records regulations: The Federal rules restrict any use of the information to criminally investigate or prosecute any alcohol or drug abuse patient.[facility] Care Teams (unrecognized sec tion and content) Teletype Installer Relationship Specialty Start Date End Date Roland Serrano DO PCP - General 09/21/07 Kizzy Galloway RN Specialty Stereotype Finisher Radiation Oncology 06/12/21 Teletype Installer Relationship Specialty Start Date End Date Roland Serrano DO PCP - General 09/21/07 Kizzy Galloway RN [address] [place] [address] Specialty Stereotype Finisher Radiation Oncology 06/12/21 Teletype Installer Relationship Specialty Start Date End Date Roland Serrano, DO PCP - General 09/21/07 Kizzy Galloway RN [address] [place] [address] Specialty Stereotype Finisher Radiation Oncology 06/12/21 Teletype Installer Relationship Specialty Start Date End Date Roland Serrano DO PCP - General 09/21/07 Kizzy Galloway RN [address] [place] [address] Specialty Stereotype Finisher Radiation Oncology 06/12/21 Teletype Installer Relationship Specialty Start Date End Date Roland Serrano DO PCP - General 09/21/07 Kizzy Galloway RN [address] [place] [address] Specialty Stereotype Finisher Radiation Oncology 06/12/21 Teletype Installer Relationship Specialty Start Date End Date Roland Serrano DO PCP - General 09/21/07 Kizzy Galloway RN [address] [place] [address] Specialty Stereotype Finisher Radiation Oncology 06/12/21 Teletype Installer Relationship Specialty Start Date End Date Roland Serrano DO PCP - General 09/21/07 Kizzy Galloway RN [address] [place] [address] Specialty Stereotype Finisher Radiation Oncology 06/12/21 Teletype Installer Relationship Specialty Start Date End Date Roland Serrano DO PCP - General 09/21/07 Kizzy [place] [id number] [place] [address] Specialty Stereotype Finisher Radiation Oncology 06/12/21 Teletype Installer Relationship Specialty Start Date End Date Roland Serrano DO PCP - General 09/21/07 Kizzy [place] [id number] [place] [address] Specialty Stereotype Finisher Radiation Oncology 06/12/21 Teletype Installer Relationship Specialty Start Date End Date Roland Serrano DO PCP - General 09/21/07 Kizzy Galloway RN [address] [place] [address] Specialty Stereotype Finisher Radiation Oncology 06/12/21 Teletype Installer Relationship Specialty Start Date End Date Roland Serrano DO PCP - General 09/21/07 Kizzy Galloway RN [address] [place] [address] Specialty Stereotype Finisher Radiation Oncology 06/12/21 Teletype Installer Relationship Specialty Start Date End Date Roland Serrano DO PCP - General 09/21/07 [place] [address] [place] [address] Specialty Stereotype Finisher Radiation Oncology 06/12/21 Teletype Installer Relationship Specialty Start Date End Date Roland Serrano DO PCP - General 09/21/07 [place] [address] [place] [address] Specialty Stereotype Finisher Radiation Oncology 06/12/21 Teletype Installer Relationship Specialty Start Date End Date Roland Serrano DO PCP - General 09/21/07 [place] [address] [place] [address] Specialty Stereotype Finisher Radiation Oncology 06/12/21 Teletype Installer Relationship Specialty Start Date End Date Roland Serrano DO PCP - General 09/21/07 Kizzy Galloway RN [address] [place] [address] Specialty Stereotype Finisher Radiation Oncology 06/12/21 Teletype Installer Relationship Specialty Start Date End Date Roland Serrano DO PCP - General 09/21/07 Kizzy Galloway RN [address] [place] [address] Specialty Stereotype Finisher Radiation Oncology 06/12/21 Teletype Installer Relationship Specialty Start Date End Date Roland Serrano DO PCP - General 09/21/07 Kizzy Galloway RN [address] [place] [address] Specialty Stereotype Finisher Radiation Oncology 06/12/21 Teletype Installer Relationship Specialty Start Date End Date Roland Serrano DO PCP - General 09/21/07 Kizzy Galloway RN [address] [place] [address] Specialty Stereotype Finisher Radiation Oncology 06/12/21 Teletype Installer Relationship Specialty Start Date End Date Roland Serrano DO PCP - General 09/21/07 [place] [address] JOSE DE JESUS Bernie [place] [id number] Specialty Stereotype Finisher Radiation Oncology 06/12/21 FOR RECORDS PERTAINING TO [...] BE BASED ON THE PRIMARY CLINICAL RECORDS. [facility]. provides no warranty or guarantee of the accuracy or completeness of information in this document.
[2024-01-18 18:48] VITALS: BP 170/88; PULSE 92; RESP 16; TEMP 36.4; O2SAT 98; BMI 23.6
--- NOTE | 2024-01-18 18:51 | ED_ITS ---
HPI - Extremity Injury (Lower) General Chief Complaint: Extremity Injury, Lower Stated Complaint: FALL/LOWER EXTREMITY INJURY L ANKLE Time Seen by Provider: 01/18/24 18:42 Source: patient Mode of arrival: walk-in Limitations: no limitations History of Present Illness HPI Narrative: Patient is a 63-year-old female presents to the ER with concerns of left foot and ankle pain. Earlier today patient was walking down narrow steps at a soccer facility twisted her leg and fell. She denies head or neck injury, pain moderate localized left ankle radiating to the left foot. Patient presents on crutches with soft tissue swelling. She denies additional injury to the head or neck. Patient appears in no distress did take Aleve earlier without any relief of pain, agreeable to oral pain medication on arrival. MD complaint: Reports ankle injury and foot injury Injury: Left: ankle and foot Place: Reports other ([employer]) Severity: moderate Relieving factors: Reports nothing Exacerbating factors: Reports weight bearing Context: Reports fall Associated symptoms: Reports swelling Related Data Home Medications Medication Instructions Recorded Confirmed carvedilol 25 mg tablet mg 01/18/24 venlafaxine 150 mg mg PO 01/18/24 capsule,extended release 24 hr Previous Rx's Medication Instructions Recorded oxycodone-acetaminophen 5 mg-325 1 tab PO Q8H PRN pain #7 tabs 01/18/24 mg tablet (Percocet) Allergies Allergy/AdvReac Type Severity Reaction Status Date / Time No Known Drug Allergies Allergy Verified 01/18/24 18:48 Review of Systems ROS Constitutional Denies: fever or chills Eyes Denies: change in vision Ears, nose, mouth, and throat Denies: throat pain, neck pain or throat swelling Cardiovascular Reports: swelling of feet/ankles (left); Denies: chest pain, palpitations or edema Respiratory Denies: shortness of breath Gastrointestinal Denies: abdominal pain, nausea or vomiting Musculoskeletal Reports: extremity pain and extremity swelling; Denies: back pain or neck pain Integumentary/Breast Denies: rash or itching Neurological Denies: headache Psychiatric Denies: anxiety Hematologic/Lymphatic Denies: easy bruising PFSH PFSH Social History Smoking status: Never smoker Exam Narrative Exam Narrative: Vital signs reviewed and nurse's notes. The patient is not hypoxic. General: Alert, no acute distress, patient resting comfortably Skin: warm, intact, no pallor noted Head: Normocephalic, atraumatic Eye: Normal conjunctiva, no exudates Respiratory: No acute distress, lungs CTA Musculoskeletal: No evidence of deformity left ankle or knee. There is mild amount of swelling lateral malleolus. There is no ecchymosis. No erythema or warmth noted. DP and PT pulses are intact 2+. Normal sensation, normal capillary refill less than 2 seconds. There is no cyanosis or mottling noted. The patient has tenderness to Left ankle lateral aspect and 5th MT. . The patient has no laxity with varus or valgus stressing of knee. Ankle joint not stressed. The patient has negative anterior drawer and Kellen testing. The patient was able to flex and extend although with pain. Patient was able to extend leg off the cart without difficulty. No tenderness noted to proximal fibular area or knee joint. There is no pain with calcaneal squeeze, achilles tendon is intact and no defect is palpated. The patient has no pelvic instability. The patient has no shortening or rotation noted to the bilateral lower extremities. Neurological: alert and orient x4, normal sensory and motor observed. Psychiatric: Cooperative Constitutional Vital Signs, click to edit/add: Last Vital Signs Temp 97.6 F 01/18/24 18:48 Pulse 92 H 01/18/24 18:48 Resp 16 01/18/24 18:48 Pulse Ox 98 01/18/24 18:48 O2 Del Method Room Air 01/18/24 18:48 Course Vital Signs Vital signs: Vital Signs Temperature 97.6 F 01/18/24 18:48 Pulse Rate 92 H 01/18/24 18:48 Respiratory Rate 16 01/18/24 18:48 Pulse Oximetry 98 01/18/24 18:48 Oxygen Delivery Method Room Air 01/18/24 18:48 Temperature 97.6 F 01/18/24 18:48 Pulse Rate 92 H 01/18/24 18:48 Respiratory Rate 16 01/18/24 18:48 Pulse Oximetry 98 01/18/24 18:48 Oxygen Delivery Method Room Air 01/18/24 18:48 MDM - Extremity Injury (Lower) MDM Narrative Medical decision making narrative: Xrays ordered possible ankle fx. Percocet ordered for pain, Ice applied. Reviewed x-rays with patient, location of swelling and pain concerning for a nondisplaced fracture to the distal tip of the fibula. Recommend she continue with her crutches, nonweightbearing, strict ice and elevation through the weekend and follow-up Friday or Friday with orthopedics for reevaluation. Recommend no weightbearing pending re-eval. The patient is to followup with Dr. Calvin in next 1-2 days or to return to the emergency department should any of the signs or symptoms worsen or new symptoms develop. Patient had questions answered. The patient agrees with the following Diagnosis and Treatment plan and the patient will be discharged home. Differential Diagnosis Differential diagnosis: Likely ankle sprain and strain and ankle fracture Imaging Data Left Ankle, left foot: My impression: Personal review left foot and ankle 3 views on each concerning for nondisplaced fracture distal fibula. Discharge Plan Discharge Chief Complaint: Extremity Injury, Lower Clinical Impression: Fracture of distal end of fibula, Left ankle sprain Patient Disposition: Home, Self-Care Time of Disposition Decision: 19:26 Condition: Good Prescriptions / Home Meds: New oxycodone-acetaminophen [Percocet] 5-325 mg tablet 1 tab PO Q8H PRN (Reason: pain) Qty: 7 0RF No Action carvedilol 25 mg tablet venlafaxine 150 mg capsule,extended release 24hr PO Instructions: Ankle Fracture (ED), Ankle Sprain (ED) Additional Instructions: Call Dr. Calvin for appt tomorrow to be seen for possible distal fibula fracture. Referrals: Roland Brown DO [Primary Care Provider] - 1 week Kobe Calvin DPM [Physician] - As soon as possible Stand Alone Forms: Portal Instructions Procedures ED Ortho Splinting/Casting Orthopedic Splinting/Casting Injury #1: Additional comments: Splint Application: The patient was placed in a short leg posterior splint with Orthoglass splint material, 4 inch. The patient had 2 rolls of the web roll applied to the affected site. Patient then had the splint material placed with felt side against web roll and skin. The patient had the splint secured in place with jalen bandage. The patient was neurovascularly intact post application of the splint.
[2024-01-18] MEDS: OXYCODONE HCL/ACETAMINOPHEN 5MG/325MG 1 TAB PO (19:00)
[2024-01-18] MEDS: OXYCODONE HCL/ACETAMINOPHEN 5MG/325MG 2 TAB PO (19:55)
== END 2024-01-18 20:03 | disposition home or self-care (01) ==
PROVIDERS: Emergency Provider Emergency Medicine Emergency Medical Services; PCP Internal Medicine
DX: S82.832A Other fracture of upper and lower end of left fibula, initial encounter for closed fracture (principal); S93.402A Sprain of unspecified ligament of left ankle, initial encounter; W10.9XXA Fall (on) (from) unspecified stairs and steps, initial encounter; Z79.899 Other long term (current) drug therapy
CPT/HCPCS: 29515; 73610; 73630; 99283

== ENCOUNTER 2024-01-20 10:36 | Outpatient (OUT) | payer BC, SELFPAY ==
--- NOTE | 2024-01-20 | XR_ITS ---
The [address] [address] Patient Name: JOSEPHINE STOVER MRN: [id number] date: 1960 Sex: F Assigned Patient Location: Current Patient Location: Accession/Order Number: [id number] Exam Date: 01/20/2024 10:40 Report Date: 01/20/2024 11:57 At the request of: MAGUI KITCHEN Procedure: XR foot LT min 3V PROCEDURE: XR ankle LT min 3V, XR foot LT min 3V COMPARISON: 01/18/2024 HISTORY: LEFT ANKLE PAIN FINDINGS: BONES:No acute fracture or dislocation. Moderate enthesopathic spurring of the calcaneus at the Achilles insertion. Moderate enthesopathic spurring of the calcaneus at the plantar insertion. SOFT TISSUES:Mild bimalleolar soft tissue swelling, lateral greater than medial EFFUSION:None visible. OTHER: Negative. XR/XR foot LT min 3V IMPRESSION: No acute fracture Electronically authenticated by: JACOB IYER Date: 01/20/2024 11:57
--- NOTE | 2024-01-20 | XR_ITS ---
The [address] [address] Patient Name: JOSEPHINE STOVER MRN: [id number] date: 1960 Sex: F Assigned Patient Location: Current Patient Location: Accession/Order Number: [id number] Exam Date: 01/20/2024 10:40 Report Date: 01/20/2024 11:57 At the request of: MAGUI KITCHEN Procedure: XR ankle LT min 3V PROCEDURE: XR ankle LT min 3V, XR foot LT min 3V COMPARISON: 01/18/2024 HISTORY: LEFT ANKLE PAIN FINDINGS: BONES:No acute fracture or dislocation. Moderate enthesopathic spurring of the calcaneus at the Achilles insertion. Moderate enthesopathic spurring of the calcaneus at the plantar insertion. SOFT TISSUES:Mild bimalleolar soft tissue swelling, lateral greater than medial EFFUSION:None visible. OTHER: Negative. XR/XR ankle LT min 3V IMPRESSION: No acute fracture Electronically authenticated by: JACOB IYER Date: 01/20/2024 11:57
--- NOTE | 2024-01-20 | XR_ITS ---
[address] [address] Patient Name: JOSEPHINE STOVER MRN: [id number] date: 1960 Sex: F Assigned Patient Location: Current Patient Location: Accession/Order Number: [id number] Exam Date: 01/20/2024 11:10 Report Date: 01/20/2024 12:04 At the request of: MAGUI KITCHEN Procedure: XR tibia fibula LT 2V PROCEDURE: XR tibia fibula LT 2V COMPARISON: None. HISTORY: LOWER LEG PAIN FINDINGS: BONES:No acute fracture or dislocation. Tricompartmental osteoarthropathy with marginal osteophyte formation SOFT TISSUES:Negative. No visible soft tissue swelling. EFFUSION:None visible. OTHER: Negative. XR/XR tibia fibula LT 2V IMPRESSION: Degenerative osteoarthritis Electronically authenticated by: JACOB IYER Date: 01/20/2024 12:04
--- OUTSIDE RECORDS SUMMARY | 2024-01-20 10:52 | XMS_ITS | CCD ---
Author Name Unknown Address [address] [place] [address] Organization [facility] Care Team Providers Care Steam Hand Name Role Phone Roland Serrano DO Primary [...] BALL, ROLAND E Primary Care Unavailable LESSA CISNREOS JAY, MIKE Referring Unava ilable BALL, ROLAND E Primary Care Unavailable HEIDI MENARD Attending Unavailab le BALL, ROLAND E Primary Care Unavailable BALL, ROLAND E Primary Care Unavailable JAYANT, SOUTH Philippe Referring Unavailable BALL, ROLAND E Primary Care Unavailable RACHELHENRY Lr Referring Unavailable BALL, ROLAND E Primary Care Unavailable MODERNESTO DIAZ Referring Unavailable JUAN MNAUEL MEDINA Attending Unavailable BALL, ROLAND E Primary Care Unavailable SASIDSARAH MACDONALDHEIDI Attending Unavailab le Allergies Allergy Classification Reported Allergen(s) Allergy Type Date of Onset Reaction(s) Facility (6 sources) patient allergy list reviewed by nurse or physicia Propensity to adverse reactions 8 Comment:Done [employer] Other (6 sources) Allergies Reconciled Propensity to adverse reactions Unknown [employer] Other Medications Current Medications Medication Drug Class(es) Dates Sig (Normalized) Sig (Original) acetaminophen 325 mg / HYDROcodone bitartrate 5 mg oral tablet (8 sources) Opioid Agonist take 1-2 tablets by mouth every six hours as needed HYDROcodone-Aceta minophen 5-325 MG 1-2 tablet as needed Oral every 6 hrs for 7 days Active [id number] actuat albuterol 0.09 mg/actuat metered dose [...] one(1) tablet d aily. Take by mouth. DIXT9-MEK-WEO-FISH OIL-L.CASEI ORAL (20 sources) NQGA5-EER-CTH-FI SH OIL-L.CASEI ORAL Take by mouth once daily. 0 Active Comment on above: Take by mouth once d aily. polyethylene glycol 3350 [id number] mg / potassium chloride 2970 mg / sodium bicarbonate 6740 mg / sodium chloride 5860 mg / sodium sulfate 21054 mg powder for oral solution (1 source) [...] CNOV Office Visit (HOMERO ) ISABEL WADDELL ([id number]) 1960 F Date Time Provider Department 09/29/23 [...] mg by mouth daily at bedtime. - CNQL4-EAH-YRP-FISH OIL-L.CASEI ORAL Take by mouth once daily. [...] [D64.89] 09/02 (more content not included)... Normal [facility] ANES POSTPROC EVALon 023 ANES POSTPROC EVAL HNO ID: [id number] Author: Kobe Garcia MD Service: ? Author Type: Anesthesiologist Type: Anesthesia Postprocedure Evaluation Filed: 09/02/2023 10:38 AM Note Text: POST ANESTHESIA EVALUATION NOTE : 1960 Procedure Summary Date: 09/02/23 Room / Location: [address] [place] Anesthesia Start: 745 Anesthesia Stop: 925 Procedures: [...] September 02, 2023 TIME: 10:37 AM CSN: [id number] Normal [facility] ANES PRE-OPon 09-02-2023 ANES PRE-OP HNO ID: [id number] Author: Kobe Garcia MD Service: ? Author Type: Anesthesiologist Type: Anesthesia Preprocedure Evaluation Filed: 09/02/2023 8:30 AM Note Text: ANESTHESIOLOGY DAY OF SURGERY NOTE : 1960 Procedure Information Date/Time: 09/02/23729 Procedures: EXAM UNDER ANESTHESIA RECTAL (Anus) SIGMOIDOSCOPY FLEXIBLE (Colon Sigmoid) ANOSCOPY W/ CONTROL OF BLEEDING- Formalin treatment (Anus) Location: [facility]IN [facility] Surgeons: [place], Estimated [...] 1,000 mg by mouth once daily. - OOHB1-IYE-UWI-FISH OIL-L.CASEI ORAL Take by mouth once daily. [...] on 06/27/2023 (more content not included)... Normal [facility] ANES PREOPon 09-02-2023 ANES PREOP HNO ID: [id number] Author: Kobe Garcia MD Service: Anesthesiology Author Type: Anesthesiologist Type: Anesthesia PreOp Filed: 09/02/2023 7:05 AM Note Text: Healthy except for FAP. Appropriately NPO, denies reflux, no history of anesthesia problems. Reviewed in fathers presence. MP1, no airway concerns, ASA2, Plan for GA with LMA. Has braces, tight , no loose teeth. Normal [facility] BRIEF OP NOTon 09-02-2023 BRIEF OP NOT HNO ID: [id number] Author: Milagro Sanchez MD Service: Colorectal Author Type: Physician Type: Brief Op Note Filed: 09/02/2023 8:57 AM Note Text: BRIEF OPERATIVE NOTE - COLORECTAL SURGERY Log ID: [id number] Surgery/Procedure Date: 09/02/2023 Incision/Procedure Start Time: 8:01 AM Incision Close/Procedure End Time: 8:51 AM Surgeon(s) and Flight Operations Engineer(s): Surgeon(s) and Role: * [place] [...] September 02, 2023 TIME: 8:56 AM Normal [facility] CNDSon 09-02-2023 CNDS HNO ID: [id number] Author: Ricardo White PA-C Service: Colorectal Author Type: Physician Flight Operations Engineer Type: Discharge Summary Filed: 09/02/2023 2:06 PM Note Text: Attestation signed by [place] DO at 09/02/2023 4:24 PM [place] DO, DAVID, [facility] Colorectal Surgery DISCHARGE SUMMARY PATIENT NAME: [...] [facility] [address] Saba's office at [phone] to make an appointment. Transitions of Care [...] capsule Commonly (more content not included)... Normal [facility] Hematocrit Auto (Bld) [Volum e fraction]on 09-02-2023 Hematocrit (Bld) [Volume fraction] 27.4 % Low 36.0-46.0 [facility] Comment on above: Order Comment: Speci men Type: BLOOD SPECIMEN Ordering Facility: [facility] Address: [address] [id number] Performed By: #### 5 0190-8, 2276-02 #### [facility] CLIA [id number] [address] [place] [address] [place] Hgb Bld-mCncon 09-02-2023 Hemoglobin (Bld) [Mass/Vol] 7.5 g/dL Low 11.5-15.5 [facility] Comment on above: Order Comment: Speci men Type: BLOOD SPECIMEN Ordering Facility: [facility] Address: [address] [id number] Performed By: #### 5 0190-8, 2276-02 #### [facility] CLIA [id number] [address] [place] [address] [place] OPERATIVE NOon 09-02-2023 OPERATIVE NO HNO ID: [id number] Author: [place] DO Service: Colorectal Author Type: Physician Type: Operative Report Filed: 09/10/2023 7:14 AM Note Text: OPERATIVE REPORT PATIENT NAME: Isabel Waddell LOG ID: [id number] SURGERY DATE: 09/02/2023 INCISION/PROCEDURE START TIME: 8:01 AM INCISION CLOSE/PROCEDURE END TIME: 8:51 AM PREOPERATIVE DIAGNOSIS: Radiation proctitis, anemia, history of endometrial adenocarcinoma POSTOPERATIVE DIAGNOSIS: Radiation proctitis, anemia, history of endometrial adenocarcinoma OPERATION PERFORMED: Flexible sigmoidoscopy, exam under anesthesia, topical application of formalin to the rectum for treatment of radiation proctitis SURGEON: [place] DO DATA WAREHOUSING MANAGER: Milagro Sanchez MD. no qualified residents or [...] Saba, DO, FACS, FASCRS Colorectal Surgery Normal [facility] TYPE + SCREENon 09-02-2023 ABO O Normal [facility] Comment on above: Order Comment: Speci men Type: BLOOD SPECIMEN Ordering Facility: [facility] Address: [address] [place], [place] [address] Performed By: #### 5 0190-8, 2276-4 #### [facility] CLIA [id number] [address] [facility] [place] [address] [place] HISTORICAL AB SCR STATUS Negative Normal [facility] Comment on above: Order Comment: Speci men Type: BLOOD SPECIMEN Ordering Facility: [facility] Address: [address] [address] Performed By: #### 5 0190-8, 2276-4 #### [facility] CLIA [id number] [address] [place] [address] [place] Rh Nom (Bld) Positive Normal [facility] Comment on above: Order Comment: Speci men Type: BLOOD SPECIMEN Ordering Facility: [facility] Address: [address] [place] [address] Performed By: #### 5 0190-8, 2275-4 #### [facility] CLIA [id number] [address] [place] [address] [place] TYPE AND SCREEN EXPIRATION 09/05/2023 23:59 Normal [facility] Comment on above: Order Comment: Speci men Type: BLOOD SPECIMEN Ordering Facility: [facility] Address: [address] [place] [address] Performed By: #### 5 0190-8, 2275-4 #### [facility] CLIA [id number] [address] [place] [address] [place] CBC W Auto Differential pane l (Bld)on 08-29-2023 Basophils (Bld) [#/Vol] 10*3/uL Normal <0.11 [facility] Comment on above: Order Comment: Speci men Type: BLOOD SPECIMENOrdering Facility: [facility] Address: [address] [place] [address] Performed By: #### 5 7021-8 ####[facility] [id number] [place] [address] [place] Basophils/100 WBC (Bld) 0.7 % Normal [facility] Comment on above: Order Comment: Speci men Type: BLOOD SPECIMENOrdering Facility: [facility] Address: [address] [place] [address] Performed By: #### 5 7021-8 ####[facility] [id number] [place] [address] [place] Differential cell count method Nom (Bld) Auto Normal [facility] Comment on above: Order Comment: Speci men Type: BLOOD SPECIMENOrdering Facility: [facility] Address: [address] [place] [address] Performed By: #### 5 7021-8 ####[facility] [id number] [place] [address] [place] Eosinophils (Bld) [#/Vol] 0.18 10*3/uL Normal <0.46 [facility] Comment on above: Order Comment: Speci men Type: BLOOD SPECIMENOrdering Facility: [facility] Address: [address] [place] [address] Performed By: #### 5 7021-8 ####[facility] [id number] [place] [address] [place] Eosinophils/100 WBC (Bld) 5.9 % Normal [facility] Comment on above: Order Comment: Speci men Type: BLOOD SPECIMENOrdering Facility: [facility] Address: [address] [place] [address] Performed By: #### 5 7021-8 ####[facility] [id number] [place] [address] [place] Erythrocyte distribution width (RBC) [Ratio] 22.0 % High 11.5-15.0 [facility] Comment on above: Order Comment: Speci men Type: BLOOD SPECIMENOrdering Facility: [facility] Address: [address] [place] [address] Performed By: #### 5 7021-8 ####[facility] [id number] [place] [address] [place] Hematocrit (Bld) [Volume fraction] 26.0 % Low 36.0-46.0 [facility] Comment on above: Order Comment: Speci men Type: BLOOD SPECIMENOrdering Facility: [facility] Address: [address] [place] [address] Performed By: #### 5 7021-8 ####[facility] [id number] [place] [address] [place] Hemoglobin (Bld) [Mass/Vol] 7.0 g/dL Low 11.5-15.5 [facility] Comment on above: Order Comment: Speci men Type: BLOOD SPECIMENOrdering Facility: [facility] Address: [address] [place] [address] Performed By: #### 5 7021-8 ####[facility] [id number] [place] [address] [place] Immature granulocytes (Bld) [#/Vol] 10*3/uL Normal <0.10 [facility] Comment on above: Order Comment: Speci men Type: BLOOD SPECIMENOrdering Facility: [facility] Address: [address] [place] [address] Performed By: #### 5 7021-8 ####[facility] [id number] [place] [address] [place] Immature granulocytes/100 WBC (Bld) 0.0 % Normal [facility] Comment on above: Order Comment: Speci men Type: BLOOD SPECIMENOrdering Facility: [facility] Address: [address] [place] [address] Performed By: #### 5 7021-8 ####[facility] [id number] [place] [address] [place] Lymphocytes (Bld) [#/Vol] 1.20 10*3/uL Normal 1.00-4.00 [facility] Comment on above: Order Comment: Speci men Type: BLOOD SPECIMENOrdering Facility: [facility] Address: [address] [place] [address] Performed By: #### 5 7021-8 ####[facility] [id number] [place] [address] [place] Lymphocytes/100 WBC (Bld) 39.1 % Normal [facility] Comment on above: Order Comment: Speci men Type: BLOOD SPECIMENOrdering Facility: [facility] Address: [address] [place] [address] Performed By: #### 5 7021-8 ####[facility] [id number] [place] [address] [place] MCH (RBC) [Entitic mass] 17.9 pg Low 26.0-34.0 [facility] Comment on above: Order Comment: Speci men Type: BLOOD SPECIMENOrdering Facility: [facility] Address: [address] [place] [address] Performed By: #### 5 7021-8 ####[facility] [id number] [place] [address] [place] MCHC (RBC) [Mass/Vol] 26.9 g/dL Low 30.5-36.0 [facility] Comment on above: Order Comment: Speci men Type: BLOOD SPECIMENOrdering Facility: [facility] Address: [address] [place] [address] Performed By: #### 5 7021-8 ####[facility] [id number] [place] [address] [place] MCV (RBC) [Entitic vol] 66.3 fL Low 80.0-100.0 [facility] Comment on above: Order Comment: Speci men Type: BLOOD SPECIMENOrdering Facility: [facility] Address: [address] [place] [address] Performed By: #### 5 7021-8 ####[facility] [id number] [place] [address] [place] Monocytes (Bld) [#/Vol] 0.40 10*3/uL Normal <0.87 [facility] Comment on above: Order Comment: Speci men Type: BLOOD SPECIMENOrdering Facility: [facility] Address: [address] [place] [address] Performed By: #### 5 7021-8 ####[facility] [id number] [place] [address] [place] Monocytes/100 WBC (Bld) 13.0 % Normal [facility] Comment on above: Order Comment: Speci men Type: BLOOD SPECIMENOrdering Facility: [facility] Address: [address] [place] [address] Performed By: #### 5 7021-8 ####[facility] [id number] [place] [address] [place] Neutrophils (Bld) [#/Vol] 1.27 10*3/uL Low 1.45-7.50 [facility] Comment on above: Order Comment: Speci men Type: BLOOD SPECIMENOrdering Facility: [facility] Address: [address] [place] [address] Performed By: #### 5 7021-8 ####[facility] [id number] [place] [address] [place] Neutrophils/100 WBC (Bld) 41.3 % Normal [facility] Comment on above: Order Comment: Speci men Type: BLOOD SPECIMENOrdering Facility: [facility] Address: [address] [place] [address] Performed By: #### 5 7021-8 ####[facility] [id number] [place] [address] [place] Nucleated RBC (Bld) [#/Vol] 10*3/uL Normal <0.01 [facility] Comment on above: Order Comment: Speci men Type: BLOOD SPECIMENOrdering Facility: [facility] Address: [address] [place] [address] Performed By: #### 5 7021-8 ####[facility] [id number] [place] [address] [place] Nucleated RBC/100 WBC (Bld) [Ratio] 0.0 /100 WBC Normal [facility] Comment on above: Order Comment: Speci men Type: BLOOD SPECIMENOrdering Facility: [facility] Address: [address] [place] [address] Performed By: #### 5 7021-8 ####[facility] [id number] [place] [address] [place] Platelet mean volume (Bld) [Entitic vol] 9.6 fL Normal 9.0-12.7 [facility] Comment on above: Order Comment: Speci men Type: BLOOD SPECIMENOrdering Facility: [facility] Address: [address] [place] [address] Performed By: #### 5 7021-8 ####[facility] [id number] [place] [address] [place] Platelets (Bld) [#/Vol] 266 10*3/uL Normal 150-400 [facility] Comment on above: Order Comment: Speci men Type: BLOOD SPECIMENOrdering Facility: [facility] Address: [address] [place] [address] Performed By: #### 5 7021-8 ####[facility] [id number] [place] [address] [place] RBC (Bld) [#/Vol] 3.92 10*6/uL Normal 3.90-5.20 [facility] Comment on above: Order Comment: Speci men Type: BLOOD SPECIMENOrdering Facility: [facility] Address: [address] [place] [address] Performed By: #### 5 7021-8 ####[facility] [id number] [place] [address] [place] WBC (Bld) [#/Vol] 3.07 10*3/uL Low 3.70-11.00 [facility] Comment on above: Order Comment: Speci men Type: BLOOD SPECIMENOrdering Facility: [facility] Address: [place] [address] Performed By: #### 5 7021-8 ####[facility] [id number] [facility] ROACHDESK [id number] [facility] CNOVon 08-29-2023 CNOV Office Visit (CORSMN ) ISABEL WADDELL ([id number]) 1960 F Date Time Provider Department 08/29/23 11:00 AM ELDER GALAN During your visit today, we recorded the following information about you: Temperature Pulse Blood pressure Weight 98 degrees 82/minute 163/78 66.7 kg Height 1.676 m Elder Galan APRN.COMPRESSION MOLDING MACHINE OPERATOR 08/31/2023 9:11 PM Signed COLON AND RECTAL [...] team about CBC once drawn. Elder Galan, BETTY.[facility] Pelvic Floor Colorectal Surgery Risk of morbidity, mortality and/or complications of treatment plan: high Referring Provider: SOUTH SABA [[id number]] Allergies As of Allen (more content not included)... Normal [facility] CNOV Office Visit (PMNA11 ) ISABEL WADDELL ([id number]) 1960 F Date Time Provider Department 08/29/23 10:00 AM HEIDI MENARD PMNA11 During your visit today, we recorded the following information about you: Temperature Pulse Respiration Blood pressure 98 degrees 82/minute 16/minute 157/77 Weight 66.7 kg Heidi Menard MD 08/29/2023 1:08 PM Signed Ms. Waddell is a 63 year old female who presents to the [facility] Res[facility] [place]. 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 Normal [facility] Comprehensive metabolic 2000 panelon 08-29-2023 Albumin [Mass/Vol] 3.9 g/dL Normal 3.9-4.9 [facility] Comment on above: Order Comment: Speci men Type: BLOOD SPECIMEN Ordering Facility: [facility] Address: [address] Performed By: #### 5 0190-8, 2275-4 #### [facility] CLIA [id number] [address] [place] [address] [place] ALP [Catalytic activity/Vol] 164 U/L High 34-123 [facility] Comment on above: Order Comment: Speci men Type: BLOOD SPECIMEN Ordering Facility: [facility] Address: [address] Performed By: #### 5 0190-8, 2275-4 #### [facility] CLIA [id number] [address] [place] [address] [place] ALT [Catalytic activity/Vol] 45 U/L High 7-38 [facility] Comment on above: Order Comment: Speci men Type: BLOOD SPECIMEN Ordering Facility: [facility] Address: [address] Performed By: #### 5 0190-8, 2275-4 #### [facility] CLIA [id number] [address] [place] [address] [place] Anion gap [Moles/Vol] 10 mmol/L Normal 9-18 [facility] Comment on above: Order Comment: Speci men Type: BLOOD SPECIMEN Ordering Facility: [facility] Address: [address] Performed By: #### 5 0190-8, 2275-4 #### [facility] CLIA [id number] [address] [place] [address] [place] AST [Catalytic activity/Vol] 48 U/L High 13-35 [facility] Comment on above: Order Comment: Speci men Type: BLOOD SPECIMEN Ordering Facility: [facility] Address: [address] Performed By: #### 5 0190-8, 2276-02 #### [facility] CLIA [id number] [address] [place] [address] [place] Bilirubin [Mass/Vol] 0.3 mg/dL Normal 0.2-1.3 [facility] Comment on above: Order Comment: Speci men Type: BLOOD SPECIMEN Ordering Facility: [facility] Address: [address] [place], [place] [id number] Performed By: #### 5 0190-8, 2276-02 #### [facility] CLIA [id number] [address] [place] [address] [place] Calcium [Mass/Vol] 9.5 mg/dL Normal 8.5-10.2 [facility] Comment on above: Order Comment: Speci men Type: BLOOD SPECIMEN Ordering Facility: [facility] Address: [address] [place] [address] Performed By: #### 5 0190-8, 2276-02 #### [facility] CLIA [id number] [address] [place] [address] [place] Chloride [Moles/Vol] 107 mmol/L High 97-105 [facility] Comment on above: Order Comment: Speci men Type: BLOOD SPECIMEN Ordering Facility: [facility] Address: [address] [place], [place] [id number] Performed By: #### 5 0190-8, 2276-02 #### [facility] CLIA [id number] [address] [place] [address] [place] CO2 [Moles/Vol] 24 mmol/L Normal 22-30 [facility] Comment on above: Order Comment: Speci men Type: BLOOD SPECIMEN Ordering Facility: [facility] Address: [address] Performed By: #### 5 0190-8, 2275- #### [facility] CLIA [id number] [address] [place] [address] [place] [facility] Creatinine [Mass/Vol] 0.61 mg/dL Normal 0.58-0.96 [facility] Comment on above: Order Comment: Adonis mayo Type: BLOOD SPECIMEN Ordering Facility: [facility] Address: [address] [address] Performed By: #### 5 0190-8, 6-4 #### [facility] CLIA [id number] [address] [place] [address] Creatinine and Glomerular filtration rate.predicted panel (S/P/Bld) 101 mL/min/1.73m??? Normal >=60 [facility] Comment on above: Order Comment: Adonis mayo Type: BLOOD SPECIMEN Ordering Facility: [facility] Address: [address] [place] [address] Result Comment: Kae mated Glomerular Filtration Rate [...] Performed By: #### 5 0190-8, 6-4 #### [facility] CLIA [id number] [address] [place] [address] [place] Glucose [Mass/Vol] 94 mg/dL Normal 74-99 [facility] Comment on above: Order Comment: Adonis mayo Type: BLOOD SPECIMEN Ordering Facility: [facility] Address: [address] [place] [address] Result Comment: The [place] [employer] (ADA) provides guidance for cutoff [...] Standards of Medical Care in Diabetes 2016, [place] [employer]. Diabetes Care. 2016.39(Suppl 1). Performed By: #### 5 0190-8, 2275- #### [facility] CLIA [id number] [address] [place] [address] [place] Potassium [Moles/Vol] 4.5 mmol/L Normal 3.7-5.1 [facility] Comment on above: Order Comment: Speci men Type: BLOOD SPECIMEN Ordering Facility: [facility] Address: [address] [address] Performed By: #### 5 0190-8, 2276-02 #### [facility] CLIA [id number] [address] [place] [address] [place] Protein [Mass/Vol] 6.4 g/dL Normal 6.3-8.0 [facility] Comment on above: Order Comment: Speci men Type: BLOOD SPECIMEN Ordering Facility: [facility] Address: [address] Performed By: #### 5 0190-8, 2276-02 #### [facility] CLIA [id number] [address] [place] [address] [place] Sodium [Moles/Vol] 141 mmol/L Normal 136-144 [facility] Comment on above: Order Comment: Speci men Type: BLOOD SPECIMEN Ordering Facility: [facility] Address: [address] [place] [address] Performed By: #### 5 0190-8, 2276-02 #### [facility] CLIA [id number] [address] [id number] [place] Urea nitrogen [Mass/Vol] 13 mg/dL Normal 7-21 [facility] Comment on above: Order Comment: Speci men Type: BLOOD SPECIMEN Ordering Facility: [facility] Address: [address] [place] [address] Performed By: #### 5 0190-8, 2276-4 #### [facility] CLIA [id number] [address] [facility] [address] STATES OF [facility] ECG COMPLETEon 08-29-2023 ECG COMPLETE Ventricular Rate : 7 6 BPM Atrial Rate : 76 BPM P-R Interval : 194 ms QRS Duration : 82 ms Q-T Interval : 392 ms QTC Calculation(Bazett) : 441 ms Calculated P Fife : 22 degrees Calculated R Fife : 58 degrees Calculated T Fife : 43 degrees NORMAL SINUS RHYTHM POSSIBLE LEFT ATRIAL ENLARGEMENT LEFT VENTRICULAR HYPERTROPHY ABNORMAL ECG Confirmed by MING MITCHELL MD ([id number]) on 09/02/2023 9:46:08 PM NAME : ISABEL WADDELL PID : [id number] : 1960 Gender : Female Race : ORD : [id number] Procedure Date : Aug 29 2023 13:01:41 Edit Date : Sep 02 2023 21:46:10 Diagnosis: NORMAL SINUS RHYTHM POSSIBLE LEFT ATRIAL ENLARGEMENT LEFT VENTRICULAR HYPERTROPHY ABNORMAL ECG Confirmed by MING MITCHELL MD ([id number]) on 09/02/2023 9:46:08 PM Test Reason : Location : 119 : A17 A17 Overread By : MING MITCHELL MD Edited By : MING MITCHELL MD Referred By : S[place] Acquired by : YASMIN AVILA [facility] ECHOon 08-29-2023 Echocardiography Echocardiography Report: Transthoracic Echo [facility] GUNNAR-2 Date of service: 08/29/2023 1:42:07 PM PERINATAL Ordering physician: MIKE THOMPSON Indication: Shortness of breath Technologist: Ashlee Mera [facility] Interpreting physician: Mikki Etienne MD PATIENT: [...] * * Final * * * CC [employer] [facility] : [id number] Normal [facility] HISTORY PHYSICALon HISTORY PHYSICAL HNO ID: [id number] Author: Elder Galan APRN.COMPRESSION MOLDING MACHINE OPERATOR Service: ? Author Type: Nurse Practitioner Type: [...] team about CBC once drawn. Elder Galan APRN.COMPRESSION MOLDING MACHINE OPERATOR Pelvic Floor Colorectal Surgery Risk of morbidity, mortality and/or complications of treatment plan: high [facility] + SCREENon 08-29-2023 ABO group Nom (Bld) O [facility] Blood group antibody screen Ql Negative [facility] HIstorical Ab Scr Status Negative [facility] Rh Nom (Bld) Positive [facility] Type and Screen Expiration 09/01/2023 23:59 [facility] ABO O Normal [facility] Comment on above: Order Comment: Speci men Type: BLOOD SPECIMEN Ordering Facility: [facility] Address: [address] [place] [address] Performed By: #### 5 0190-8, 2275-4 #### [facility] CLIA [id number] [address] [place] [address] [place] HISTORICAL AB SCR STATUS Negative Normal [facility] Comment on above: Order Comment: Speci men Type: BLOOD SPECIMEN Ordering Facility: [facility] Address: [address] [place], [place] [address] Performed By: #### 5 0190-8, 2275-4 #### [facility] CLIA [id number] [address] [place] [address] [place] Rh Nom (Bld) Positive Normal [facility] Comment on above: Order Comment: Speci men Type: BLOOD SPECIMEN Ordering Facility: [facility] Address: [address] [place], [place] [address] Performed By: #### 5 0190-8, 2275-4 #### [facility] CLIA [id number] [address] [place] [address] [place] TYPE AND SCREEN EXPIRATION 09/01/2023 23:59 Normal [facility] Comment on above: Order Comment: Speci men Type: BLOOD SPECIMEN Ordering Facility: [facility] Address: [address] [place], [place] [address] Performed By: #### 5 0190-8, 2275-4 #### [facility] CLIA [id number] [address] [place] [address] [place] XR CHEST 2V [...] of the thoracic spine. IMPRESSION: See Result. Multi Operation Forming Machine Setter: PSCB Transcribe Date/Time: Aug 29 2023 9:55A Dictated by : KRYSTIAN MULTANI MD This examination was interpreted and the report reviewed and electronically signed by: KRYSTIAN MULTANI MD on Aug 29 2023 9:57AM EST [id number] Normal [facility] CT CHEST WO IVCONon 08-22-20 CT CHEST WO IVCON * * *Final Report* * * DATE OF EXAM: Aug 22 2023 8:49AM [facility] 0541 - CT CHEST WO IVCON [...] wall is unremarkable. Upper abdomen: Prior cholecystectomy. Plant Supervisor (topogram) images: No additional findings. IMPRESSION: 1. No convincing findings of interstitial lung disease. There is excessive dynamic collapse of mainstem bronchi. 2. Unchanged scattered calcified granulomas. No suspicious lung nodules. 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 - RKYE1-YOE-XEE-FISH OIL-L.CASEI ORAL Take by mouth once daily. [...] Status:Closed by GABY NICHOLS RN on 07/22/23 [facility] Telephone ([facility]) CKISABEL ([id number]) 1960 F Date Time Provider Department 07/22/23 [place] During your visit today, we recorded the following information about you: Enid Baker 07/22/2023 2:49 PM Signed [phone] Patient calling to reschedule her EUA. Allergies [...] mg by mouth daily at bedtime. - LRPX8-ZCJ-ELQ-FISH OIL-L.CASEI ORAL Take by mouth once daily. [...] proctitis [K62.7] 07/14/2023 Encounter Status:Closed by ENID BKAER on 07/22/23 Normal [facility] Comprehensive metabolic 2000 panelon 07-05-2023 Albumin [Mass/Vol] 4.0 g/dL 3.9 - 4.9 g/dL [facility] ALP [Catalytic activity/Vol] 161 U/L High 34 - 123 U/L [facility] ALT [Catalytic activity/Vol] 47 U/L High 7 - 38 U/L [facility] Anion gap [Moles/Vol] 11 mmol/L 9 - 18 mmol/L [facility] AST [Catalytic activity/Vol] 41 U/L High 13 - 35 U/L [facility] Bilirubin [Mass/Vol] 0.3 mg/dL 0.2 - 1 .3 mg/dL [facility] Calcium [Mass/Vol] 9.5 mg/dL 8.5 - 10. 2 mg/dL [facility] Chloride [Moles/Vol] 105 mmol/L 97 - 10 5 mmol/L [facility] CO2 [Moles/Vol] 26 mmol/L 22 - 30 mmol/L [facility] Creatinine [Mass/Vol] 0.74 mg/dL 0.58 - 0.96 mg/dL [facility] Estimated Glomerular Filtration Rate 91 mL/min/1.73m >=60 mL/min/1.73m [facility] Glucose [Mass/Vol] 104 mg/dL High 74 - 99 mg/dL [facility] Potassium [Moles/Vol] 4.5 mmol/L 3.7 - 5.1 mmol/L [facility] Protein [Mass/Vol] 6.3 g/dL 6.3 - 8.0 g/dL [facility] Sodium [Moles/Vol] 142 mmol/L 136 - 144 mmol/L [facility] Urea nitrogen [Mass/Vol] 16 mg/dL 7 - 21 mg/dL [facility] CBC W Auto Differential pane l (Bld)on 07-04-2023 Basophils (Bld) [#/Vol] 0.03 10*3/uL Normal <0.11 [facility] Comment on above: Order Comment: Speci men Type: BLOOD SPECIMEN Ordering Facility: [facility] Address: [address] Performed By: #### 5 0190-8, 2276-02 #### [facility] CLIA [id number] [address] [place] [address] [place] Basophils/100 WBC (Bld) 0.9 % Normal [facility] Comment on above: Order Comment: Speci men Type: BLOOD SPECIMEN Ordering Facility: [facility] Address: [address] Performed By: #### 5 0190-8, 6- #### [facility] CLIA [id number] [address] [place] [address] [place] Differential cell count method Nom (Bld) Auto Normal [facility] Comment on above: Order Comment: Speci men Type: BLOOD SPECIMEN Ordering Facility: [facility] Address: [address] [place] [address] Performed By: #### 5 0190-8, 2275- #### [facility] CLIA [id number] [address] [place] [address] [place] Eosinophils (Bld) [#/Vol] 0.16 10*3/uL Normal <0.46 [facility] Comment on above: Order Comment: Speci men Type: BLOOD SPECIMEN Ordering Facility: [facility] Address: [address] [place] [address] Performed By: #### 5 0190-8, 2276-02 #### [facility] CLIA [id number] [address] [place] [address] [place] Eosinophils/100 WBC (Bld) 4.9 % Normal [facility] Comment on above: Order Comment: Speci men Type: BLOOD SPECIMEN Ordering Facility: [facility] Address: [address] [place] [address] Performed By: #### 5 0190-8, 2276-02 #### [facility] CLIA [id number] [address] [place] [address] [place] Erythrocyte distribution width (RBC) [Ratio] 19.9 % High 11.5-15.0 [facility] Comment on above: Order Comment: Speci men Type: BLOOD SPECIMEN Ordering Facility: [facility] Address: [address] [place], [place] [address] Performed By: #### 5 0190-8, 2276-02 #### [facility] CLIA [id number] [address] [place] [address] [place] Hematocrit (Bld) [Volume fraction] 25.1 % Low 36.0-46.0 [facility] Comment on above: Order Comment: Speci men Type: BLOOD SPECIMEN Ordering Facility: [facility] Address: [address] Performed By: #### 5 0190-8, 2275- #### [facility] CLIA [id number] [address] [place] [address] [place] Hemoglobin (Bld) [Mass/Vol] 7.1 g/dL Low 11.5-15.5 [facility] Comment on above: Order Comment: Speci men Type: BLOOD SPECIMEN Ordering Facility: [facility] Address: [address] Performed By: #### 5 0190-8, 2275- #### [facility] CLIA [id number] [address] [place] [address] [place] Immature granulocytes (Bld) [#/Vol] 10*3/uL Normal <0.10 [facility] Comment on above: Order Comment: Speci men Type: BLOOD SPECIMEN Ordering Facility: [facility] Address: [address] Performed By: #### 5 0190-8, 2276-02 #### [facility] CLIA [id number] [address] [place] [address] [place] Immature granulocytes/100 WBC (Bld) 0.3 % Normal [facility] Comment on above: Order Comment: Speci men Type: BLOOD SPECIMEN Ordering Facility: [facility] Address: [address] Performed By: #### 5 0190-8, 2276-02 #### [facility] CLIA [id number] [address] [place] [address] [place] Lymphocytes (Bld) [#/Vol] 1.12 10*3/uL Normal 1.00-4.00 [facility] Comment on above: Order Comment: Speci men Type: BLOOD SPECIMEN Ordering Facility: [facility] Address: [address] Performed By: #### 5 0190-8, 2276-02 #### [facility] CLIA [id number] [address] [place] [address] [place] Lymphocytes/100 WBC (Bld) 34.6 % Normal [facility] Comment on above: Order Comment: Speci men Type: BLOOD SPECIMEN Ordering Facility: [facility] Address: [address] [place], [place] [address] Performed By: #### 5 0190-8, 2276-02 #### [facility] CLIA [id number] [address] [place] [address] [place] MCH (RBC) [Entitic mass] 19.2 pg Low 26.0-34.0 [facility] Comment on above: Order Comment: Speci men Type: BLOOD SPECIMEN Ordering Facility: [facility] Address: [address] [place] [address] Performed By: #### 5 0190-8, 2276-02 #### [facility] CLIA [id number] [address] [place] [address] [place] MCHC (RBC) [Mass/Vol] 28.3 g/dL Low 30.5-36.0 [facility] Comment on above: Order Comment: Speci men Type: BLOOD SPECIMEN Ordering Facility: [facility] Address: [address] [place], [place] [address] Performed By: #### 5 0190-8, 2276-02 #### [facility] CLIA [id number] [address] [place] [address] [place] MCV (RBC) [Entitic vol] 67.8 fL Low 80.0-100.0 [facility] Comment on above: Order Comment: Speci men Type: BLOOD SPECIMEN Ordering Facility: [facility] Address: [address] [place], [place] [address] Performed By: #### 5 0190-8, 2276-02 #### [facility] CLIA [id number] [address] [place] [address] [place] Monocytes (Bld) [#/Vol] 0.49 10*3/uL Normal <0.87 [facility] Comment on above: Order Comment: Speci men Type: BLOOD SPECIMEN Ordering Facility: [facility] Address: [address] [place] [address] Performed By: #### 5 0190-8, 2275- #### [facility] CLIA [id number] [address] [place] [address] [place] Monocytes/100 WBC (Bld) 15.1 % Normal [facility] Comment on above: Order Comment: Speci men Type: BLOOD SPECIMEN Ordering Facility: [facility] Address: [address] [place] [address] Performed By: #### 5 0190-8, 2276-02 #### [facility] CLIA [id number] [address] [place] [address] [place] Neutrophils (Bld) [#/Vol] 1.43 10*3/uL Low 1.45-7.50 [facility] Comment on above: Order Comment: Speci men Type: BLOOD SPECIMEN Ordering Facility: [facility] Address: [address] [place] [address] Performed By: #### 5 0190-8, 2276-02 #### [facility] CLIA [id number] [address] [place] [address] [place] Neutrophils/100 WBC (Bld) 44.2 % Normal [facility] Comment on above: Order Comment: Speci men Type: BLOOD SPECIMEN Ordering Facility: [facility] Address: [address] [place] [address] Performed By: #### 5 0190-8, 2275- #### [facility] CLIA [id number] [address] [place] [address] [place] Nucleated RBC (Bld) [#/Vol] 10*3/uL Normal <0.01 [facility] Comment on above: Order Comment: Speci men Type: BLOOD SPECIMEN Ordering Facility: [facility] Address: [address] [place] [address] Performed By: #### 5 0190-8, 2276-02 #### [facility] CLIA [id number] [address] [place] [address] [place] Nucleated RBC/100 WBC (Bld) [Ratio] 0.0 /100 WBC Normal [facility] Comment on above: Order Comment: Speci men Type: BLOOD SPECIMEN Ordering Facility: [facility] Address: [address] [place], [place] [address] Performed By: #### 5 0190-8, 2276-02 #### [facility] CLIA [id number] [address] [place] [address] [place] Platelet mean volume (Bld) [Entitic vol] 9.8 fL Normal 9.0-12.7 [facility] Comment on above: Order Comment: Speci men Type: BLOOD SPECIMEN Ordering Facility: [facility] Address: [address] [place], [place] [address] Performed By: #### 5 0190-8, 2276-02 #### [facility] CLIA [id number] [address] [place] [address] [place] Platelets (Bld) [#/Vol] 304 10*3/uL Normal 150-400 [facility] Comment on above: Order Comment: Speci men Type: BLOOD SPECIMEN Ordering Facility: [facility] Address: [address] [place] [address] Performed By: #### 5 0190-8, 2276-02 #### [facility] CLIA [id number] [address] [place] [address] [place] RBC (Bld) [#/Vol] 3.70 10*6/uL Low 3.90-5.20 [facility] Comment on above: Order Comment: Speci men Type: BLOOD SPECIMEN Ordering Facility: [facility] Address: [address] [place] [address] Performed By: #### 5 0190-8, 2275- #### [facility] CLIA [id number] [address] [place] [address] [place] WBC (Bld) [#/Vol] 3.24 10*3/uL Low 3.70-11.00 [facility] Comment on above: Order Comment: Speci men Type: BLOOD SPECIMEN Ordering Facility: [facility] Address: [address] [place] [address] Performed By: #### 5 0190-8, 2276-02 #### [facility] CLIA [id number] [address] [place] [address] [place] Basophils (Bld) [#/Vol] 0.03 10*3/uL <0.11 k/uL [facility] Basophils/100 WBC (Bld) 0.9 % [facility] Differential cell count method Nom (Bld) Auto [facility] Eosinophils (Bld) [#/Vol] 0.16 10*3/uL <0.46 k/uL [facility] Eosinophils/100 WBC (Bld) 4.9 % [facility] Erythrocyte distribution width (RBC) [Ratio] 19.9 % High 11.5 - 15.0 % [facility] Hematocrit (Bld) [Volume fraction] 25.1 % Low 36.0 - 46.0 % [facility] Hemoglobin (Bld) [Mass/Vol] 7.1 g/dL Low 11.5 - 15.5 g/dL [facility] Immature granulocytes (Bld) [#/Vol] <0.10 k/uL [facility] Immature granulocytes/100 WBC (Bld) 0.3 % [facility] Lymphocytes (Bld) [#/Vol] 1.12 10*3/uL 1.00 - 4.00 k/uL [facility] Lymphocytes/100 WBC (Bld) 34.6 % [facility] MCH (RBC) [Entitic mass] 19.2 pg Low 26.0 - 34.0 pg [facility] MCHC (RBC) [Mass/Vol] 28.3 g/dL Low 30.5 - 36.0 g/dL [facility] MCV (RBC) [Entitic vol] 67.8 fL Low 80.0 - 100.0 fL [facility] Monocytes (Bld) [#/Vol] 0.49 10*3/uL <0.87 k/uL [facility] Monocytes/100 WBC (Bld) 15.1 % [facility] Neutrophils (Bld) [#/Vol] 1.43 10*3/uL Low 1.45 - 7.50 k/uL [facility] Neutrophils/100 WBC (Bld) 44.2 % [facility] Nucleated RBC (Bld) [#/Vol] <0.01 k/uL [facility] Nucleated RBC/100 WBC (Bld) [Ratio] 0.0 /100 WBC [facility] Platelet mean volume (Bld) [Entitic vol] 9.8 fL 9.0 - 12.7 fL [facility] Platelets (Bld) [#/Vol] 304 10*3/uL 150 - 400 k/uL [facility] RBC (Bld) [#/Vol] 3.70 10*6/uL Low 3.90 - 5.2 0 m/uL [facility] WBC (Bld) [#/Vol] 3.24 10*3/uL Low 3.70 - 11. 00 k/uL [facility] CNOVon 07-04-2023 CNOV Office Visit (CORREJI ) ISABEL WADDELL ([id number]) 1960 F Date Time Provider Department 07/04/23 [...] regular bowel movements. 03/05/23 Juan Manuel Medina, COMPRESSION MOLDING MACHINE OPERATOR: Isabel Waddell is a 62 year old [...] 150 mg by mouth daily at bedtime. WEKG5-KWP-OUX-FISH OIL-L.CASEI ORAL Take by mouth once daily. Lactobac no.41/Bifidobact no.7 (PROBIOTIC (more content not included)... [facility] metabolic 2000 panelon 07-04-2023 Albumin [Mass/Vol] 4.0 g/dL Normal 3.9-4.9 [facility] Comment on above: Order Comment: Speci men Type: BLOOD SPECIMEN Ordering Facility: [facility] Address: [address] Performed By: #### 2 4323-8 #### [facility] CLIA [id number] [address] [place] [address] [place] ALP [Catalytic activity/Vol] 161 U/L High 34-123 [facility] Comment on above: Order Comment: Speci men Type: BLOOD SPECIMEN Ordering Facility: [facility] Address: [address] Performed By: #### 2 4323-8 #### [facility] CLIA [id number] [address] [place] [address] [place] ALT [Catalytic activity/Vol] 47 U/L High 7-38 [facility] Comment on above: Order Comment: Speci men Type: BLOOD SPECIMEN Ordering Facility: [facility] Address: [address] Performed By: #### 2 4323-8 #### [facility] CLIA [id number] [address] [place] [address] [place] Anion gap [Moles/Vol] 11 mmol/L Normal 9-18 [facility] Comment on above: Order Comment: Speci men Type: BLOOD SPECIMEN Ordering Facility: [facility] Address: [address] Performed By: #### 2 4323-8 #### [facility] CLIA [id number] [address] [place] [address] [place] AST [Catalytic activity/Vol] 41 U/L High 13-35 [facility] Comment on above: Order Comment: Speci men Type: BLOOD SPECIMEN Ordering Facility: [facility] Address: [address] Performed By: #### 2 4323-8 #### [facility] CLIA [id number] [address] [place] [address] [place] Bilirubin [Mass/Vol] 0.3 mg/dL Normal 0.2-1.3 [facility] Comment on above: Order Comment: Speci men Type: BLOOD SPECIMEN Ordering Facility: [facility] Address: [address] [place], [place] [address] Performed By: #### 2 4323-8 #### [facility] CLIA [id number] [address] [place] [address] [place] Calcium [Mass/Vol] 9.5 mg/dL Normal 8.5-10.2 [facility] Comment on above: Order Comment: Speci men Type: BLOOD SPECIMEN Ordering Facility: [facility] Address: [address] [place] [address] Performed By: #### 2 4323-8 #### [facility] CLIA [id number] [address] [place] [address] [place] Chloride [Moles/Vol] 105 mmol/L Normal 97-105 [facility] Comment on above: Order Comment: Speci men Type: BLOOD SPECIMEN Ordering Facility: [facility] Address: [address] [place] [address] Performed By: #### 2 4323-8 #### [facility] CLIA [id number] [address] [place] [address] [place] CO2 [Moles/Vol] 26 mmol/L Normal 22-30 [facility] Comment on above: Order Comment: Speci men Type: BLOOD SPECIMEN Ordering Facility: [facility] Address: [address] [place] [address] Performed By: #### 2 4323-8 #### [facility] CLIA [id number] [address] [place] [address] [place] Creatinine [Mass/Vol] 0.74 mg/dL Normal 0.58-0.96 [facility] Comment on above: Order Comment: Adonis mayo Type: BLOOD SPECIMEN Ordering Facility: [facility] Address: [address] [place] [address] Performed By: #### 2 4323-8 #### [facility] CLIA [id number] [address] [place] [address] [place] Creatinine and Glomerular filtration rate.predicted panel (S/P/Bld) 91 mL/min/1.73m??? Normal >=60 [facility] Comment on above: Order Comment: Adonis mayo Type: BLOOD SPECIMEN Ordering Facility: [facility] Address: [address] [place] [address] Result Comment: Kae mated Glomerular Filtration Rate [...] GFR. Performed By: #### 2 4323-8 #### [facility] CLIA [id number] [address] [place] [address] [place] Glucose [Mass/Vol] 104 mg/dL High 74-99 [facility] Comment on above: Order Comment: Adonis mayo Type: BLOOD SPECIMEN Ordering Facility: [facility] Address: [address] [place] [address] Result Comment: The [place] [employer] (ADA) provides guidance for cutoff [...] Standards of Medical Care in Diabetes 2016, [place] [employer]. Diabetes Care. 2016.39(Suppl 1). Performed By: #### 2 4323-8 #### [facility] CLIA [id number] [address] [place] [address] [place] Potassium [Moles/Vol] 4.5 mmol/L Normal 3.7-5.1 [facility] Comment on above: Order Comment: Speci men Type: BLOOD SPECIMEN Ordering Facility: [facility] Address: [address] Performed By: #### 2 4323-8 #### [facility] CLIA [id number] [facility] [place] [address] [place] Protein [Mass/Vol] 6.3 g/dL Normal 6.3-8.0 [facility] Comment on above: Order Comment: Speci men Type: BLOOD SPECIMEN Ordering Facility: [facility] Address: [address] Performed By: #### 2 4323-8 #### [facility] CLIA [id number] [address] [place] [address] [place] Sodium [Moles/Vol] 142 mmol/L Normal 136-144 [facility] Comment on above: Order Comment: Speci men Type: BLOOD SPECIMEN Ordering Facility: [facility] Address: [address] Performed By: #### 2 4323-8 #### [facility] CLIA [id number] [address] [place] [address] [place] Urea nitrogen [Mass/Vol] 16 mg/dL Normal 7-21 [facility] Comment on above: Order Comment: Speci men Type: BLOOD SPECIMEN Ordering Facility: [facility] Address: [address] [place] [address] Performed By: #### 2 4323-8 #### [facility] CLIA [id number] [address] [id number] [place] HISTORY PHYSICALon 3 HISTORY PHYSICAL HNO ID: [id number] Author: [place], DO Service: ? Author [...] regular bowel movements. 03/05/23 Juan Manuel Medina COMPRESSION MOLDING MACHINE OPERATOR: Isabel Waddell is a 62 year old [...] 150 mg by mouth daily at bedtime. CGLL6-DTO-OKU-FISH OIL-L.CASEI ORAL Take by mouth once daily. Lactobac no.41/Bifidobact no.7 (PROBIOTIC-10 ORAL) Take by mouth once daily. MULTIVITAMIN TAB Take one(1) tablet daily. 0 B COMPLEX VITAMINS CAP Take one(1) capsule daily. 0 CALCIUM CARBONATE-VIT D3-MINERALS 600 MG-400 UNIT TAB Take 1 tablet by mouth twice daily. 0 Current Facility-Administered Medications Medication (more content not included)... Normal [facility] CNOVon 06-27-2023 CNOV Office Visit (PMNA11 ) CKISABEL L ([id number]) 1960 F Date Time Provider Department 06/27/23 10:30 AM HEIDI MENARD PMNA11 During your visit today, we recorded the following information about you: Temperature Pulse Respiration Blood pressure 97.4 degrees 70/minute 16/minute 141/76 Weight 69.4 kg Heidi Menard MD 06/27/2023 11:47 AM Addendum Ms. Waddell is a 63 year old female who presents to the [facility] Respiratory [place]. Consultation requested by Self. 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 Silica: No significant exposure. Hemphill: No significant exposure. Organic HP antigen: No [...] and de-a (more content not included)... Normal [facility] HEMOGLOBINon 03-21-2023 Hemoglobin (Bld) [Mass/Vol] 9.1 g/dL Critically low 12.0-16.0 [facility] Comment on above: Performed By: #### H GB ####[facility] [address] [place], [place] [address]Ax. Cheryl Monzon XR CHEST 2 Von 03-10-2023 [...] by: HENRY LOCK Date: 2023-03-10 13:[address] [facility] CNOVon 03-05-2023 CNOV Office Visit (GASTLN ) ISABEL WADDELL ([id number]) 1960 F Date Time Provider Department 03/05/23 [...] Abs Lymph 1.00 - 4.00 k/uL 1.31 Pondera% % 11.1 Abs Pondera <0.87 k/uL 0.50 Eosin% % 3.1 Abs [...] or Indwelling (more content not included)... Normal [facility] HISTORY PHYSICALon 3 HISTORY PHYSICAL HNO ID: [id number] Author: Juan Manuel Medina APRN.COMPRESSION MOLDING MACHINE OPERATOR Service: ? Author Type: Nurse Practitioner Type: [...] Abs Lymph 1.00 - 4.00 k/uL 1.31 Pondera% % 11.1 Abs Pondera <0.87 k/uL 0.50 Eosin% % 3.1 Abs [...] mouth daily (more content not included)... Normal [facility]19 [facility])on SARS-CoV-2 (COVID-19) RNA ANGELA+probe Ql (Unsp spec) Not detected Normal NOT DETECTED [facility] Comment on above: Result Comment: When [...] for this test is supported by the Jbphh of Health and Human Service's declaration that [...] used). Performed By: #### C VDTBH #### [facility] [address] [place] [address] Dr. Cheryl Monzon INFLUENZA A AND B AGon 01-20 [facility] SEE BELOW Normal [facility] Comment on above: Result Comment: Nega tive for Flu A protein angiten. Infection due to Flu A cannot be ruled out. Flu A angiten in the sample may be below the detection limit of the test. Performed By: #### I NFLUAB #### [facility] [address] [place] [address] Dr. Cher[facility] Mon[facility] SEE BELOW Normal [facility] Comment on above: Result Comment: Nega tive for Flu B protein antigen. Infection due to Flu B cannot be ruled out. Flu B antigen in the sample may be below the detection limit of the test. Performed By: #### I NFLUAB #### [facility] [address] [place] [address] Dr. Cheryl Monzon INFLUENZA A AG Negative Normal NEGATIVE SEE COMMENT [facility] Comment on above: Performed By: #### I NFLUAB #### [facility] [address] [address] [address] Cheryl Monzon INFLUENZA B AG Negative Normal NEGATIVE SEE COMMENT [facility] Comment on above: Performed By: #### I NFLUAB #### [facility] [address] [address] [address] Cheryl Monzon FERRITIN BLDon 01-04-2023 Ferritin [Mass/Vol] 14.2 ng/mL Low 14.7 - 2 05.1 ng/mL [facility] Iron and Iron binding capaci ty panelon 01-04-2023 Iron [Mass/Vol] 77 ug/dL 41 - 186 ug/dL [facility] Iron binding capacity [Mass/Vol] 382 ug/dL 232 - 386 ug/dL [facility] Iron/TIBC [Molar ratio] 20.2 % 15.0 - 57.0 % [facility] CBC W Auto Differential pane l (Bld)on 01-03-2023 Basophils (Bld) [#/Vol] 10*3/uL Normal <0.11 [facility] Comment on above: Order Comment: Speci men Type: BLOOD SPECIMENOrdering Facility: [facility] Address: [address] [place] [address] Performed By: #### 5 7021-8 ####[facility] [id number] [place] [address] [place] Basophils/100 WBC (Bld) 0.4 % Normal [facility] Comment on above: Order Comment: Speci men Type: BLOOD SPECIMENOrdering Facility: [facility] Address: [address] [place] [address] Performed By: #### 5 7021-8 ####[facility] [id number] [place] [address] [place] Differential cell count method Nom (Bld) Auto Normal [facility] Comment on above: Order Comment: Speci men Type: BLOOD SPECIMENOrdering Facility: [facility] Address: [address] Performed By: #### 5 7021-8 ####[facility] [id number] [place] [address] [place] Eosinophils (Bld) [#/Vol] 0.14 10*3/uL Normal <0.46 [facility] Comment on above: Order Comment: Speci men Type: BLOOD SPECIMENOrdering Facility: [facility] Address: [address] [address] Performed By: #### 5 7021-8 ####[facility] [id number] [place] [address] [place] Eosinophils/100 WBC (Bld) 3.1 % Normal [facility] Comment on above: Order Comment: Speci men Type: BLOOD SPECIMENOrdering Facility: [facility] Address: [address] [place], [place] [address] Performed By: #### 5 7021-8 ####[facility] [id number] [place] [address] [place] Erythrocyte distribution width (RBC) [Ratio] 13.0 % Normal 11.5-15.0 [facility] Comment on above: Order Comment: Speci men Type: BLOOD SPECIMENOrdering Facility: [facility] Address: [address] [place], [place] [address] Performed By: #### 5 7021-8 ####[facility] [id number] [address] [place] Hematocrit (Bld) [Volume fraction] 35.4 % Low 36.0-46.0 [facility] Comment on above: Order Comment: Speci men Type: BLOOD SPECIMENOrdering Facility: [facility] Address: [address] Performed By: #### 5 7021-8 ####[facility] [id number] [place] [address] [place] Hemoglobin (Bld) [Mass/Vol] 11.5 g/dL Normal 11.5-15.5 [facility] Comment on above: Order Comment: Speci men Type: BLOOD SPECIMENOrdering Facility: [facility] Address: [address] [place] [address] Performed By: #### 5 7021-8 ####[facility] [id number] [place] [address] [place] Immature granulocytes (Bld) [#/Vol] 10*3/uL Normal <0.10 [facility] Comment on above: Order Comment: Speci men Type: BLOOD SPECIMENOrdering Facility: [facility] Address: [address] [place] [address] Performed By: #### 5 7021-8 ####[facility] [id number] [address] [place] Immature granulocytes/100 WBC (Bld) 0.2 % Normal [facility] Comment on above: Order Comment: Speci men Type: BLOOD SPECIMENOrdering Facility: [facility] Address: [address] [place] [address] Performed By: #### 5 7021-8 ####[facility] [id number] [place] [address] [place] Lymphocytes (Bld) [#/Vol] 1.31 10*3/uL Normal 1.00-4.00 [facility] Comment on above: Order Comment: Speci men Type: BLOOD SPECIMENOrdering Facility: [facility] Address: [address] [place], [place] [address] Performed By: #### 5 7021-8 ####[facility] [id number] [place] [address] [place] Lymphocytes/100 WBC (Bld) 29.0 % Normal [facility] Comment on above: Order Comment: Speci men Type: BLOOD SPECIMENOrdering Facility: [facility] Address: [address] [address] Performed By: #### 5 7021-8 ####[facility] [id number] [address] MCH (RBC) [Entitic mass] 30.0 pg Normal 26.0-34.0 [facility] Comment on above: Order Comment: Speci men Type: BLOOD SPECIMENOrdering Facility: [facility] Address: [address] Performed By: #### 5 7021-8 ####[facility] [id number] [address] [place] MCHC (RBC) [Mass/Vol] 32.5 g/dL Normal 30.5-36.0 [facility] Comment on above: Order Comment: Speci men Type: BLOOD SPECIMENOrdering Facility: [facility] Address: [address] Performed By: #### 5 7021-8 ####[facility] [id number] [address] [place] MCV (RBC) [Entitic vol] 92.4 fL Normal 80.0-100.0 [facility] Comment on above: Order Comment: Speci men Type: BLOOD SPECIMENOrdering Facility: [facility] Address: [address] [place], [place] [id number] Performed By: #### 5 7021-8 ####[facility] [id number] [place] [address] [place] Monocytes (Bld) [#/Vol] 0.50 10*3/uL Normal <0.87 [facility] Comment on above: Order Comment: Speci men Type: BLOOD SPECIMENOrdering Facility: [facility] Address: [address] [place], [place] [id number] Performed By: #### 5 7021-8 ####[facility] [id number] [place] [address] [place] Monocytes/100 WBC (Bld) 11.1 % Normal [facility] Comment on above: Order Comment: Speci men Type: BLOOD SPECIMENOrdering Facility: [facility] Address: [address] [place] [address] Performed By: #### 5 7021-8 ####[facility] [id number] [place] [address] [place] Neutrophils (Bld) [#/Vol] 2.53 10*3/uL Normal 1.45-7.50 [facility] Comment on above: Order Comment: Speci men Type: BLOOD SPECIMENOrdering Facility: [facility] Address: [address] [place] [address] Performed By: #### 5 7021-8 ####[facility] [id number] [place] [address] [place] Neutrophils/100 WBC (Bld) 56.2 % Normal [facility] Comment on above: Order Comment: Speci men Type: BLOOD SPECIMENOrdering Facility: [facility] Address: [address] [place], [place] [id number] Performed By: #### 5 7021-8 ####[facility] [id number] [place] [address] [place] Nucleated RBC (Bld) [#/Vol] 10*3/uL Normal <0.01 [facility] Comment on above: Order Comment: Speci men Type: BLOOD SPECIMENOrdering Facility: [facility] Address: [address] [place] [address] Performed By: #### 5 7021-8 ####[facility] [id number] [place] [address] [place] Nucleated RBC/100 WBC (Bld) [Ratio] 0.0 /100 WBC Normal [facility] Comment on above: Order Comment: Speci men Type: BLOOD SPECIMENOrdering Facility: [facility] Address: [address] [place], [place] [address] Performed By: #### 5 7021-8 ####[facility] [id number] [place] [address] [place] Platelet mean volume (Bld) [Entitic vol] 9.9 fL Normal 9.0-12.7 [facility] Comment on above: Order Comment: Speci men Type: BLOOD SPECIMENOrdering Facility: [facility] Address: [address] [place], [place] [address] Performed By: #### 5 7021-8 ####[facility] [id number] [place] [address] [place] Platelets (Bld) [#/Vol] 235 10*3/uL Normal 150-400 [facility] Comment on above: Order Comment: Speci men Type: BLOOD SPECIMENOrdering Facility: [facility] Address: [address] [place], [place] [address] Performed By: #### 5 7021-8 ####[facility] [id number] [place] [address] [place] RBC (Bld) [#/Vol] 3.83 10*6/uL Low 3.90-5.20 [facility] Comment on above: Order Comment: Speci men Type: BLOOD SPECIMENOrdering Facility: [facility] Address: [address] [place], [place] [address] Performed By: #### 5 7021-8 ####[facility] [id number] [place] [address] [place] WBC (Bld) [#/Vol] 4.51 10*3/uL Normal 3.70-11.00 [facility] Comment on above: Order Comment: Speci men Type: BLOOD SPECIMENOrdering Facility: [facility] Address: [facility] [place] [id number] Performed By: #### 5 7021-8 ####[facility] [id number] [place] [address] [place] Basophils (Bld) [#/Vol] <0.11 k/uL [facility] Basophils/100 WBC (Bld) 0.4 % [facility] Differential cell count method Nom (Bld) Auto [facility] Eosinophils (Bld) [#/Vol] 0.14 10*3/uL <0.46 k/uL [facility] Eosinophils/100 WBC (Bld) 3.1 % [facility] Erythrocyte distribution width (RBC) [Ratio] 13.0 % 11.5 - 15.0 % [facility] Hematocrit (Bld) [Volume fraction] 35.4 % Low 36.0 - 46.0 % [facility] Hemoglobin (Bld) [Mass/Vol] 11.5 g/dL 11.5 - 15.5 g/dL [facility] Immature granulocytes (Bld) [#/Vol] <0.10 k/uL [facility] Immature granulocytes/100 WBC (Bld) 0.2 % [facility] Lymphocytes (Bld) [#/Vol] 1.31 10*3/uL 1.00 - 4.00 k/uL [facility] Lymphocytes/100 WBC (Bld) 29.0 % [facility] MCH (RBC) [Entitic mass] 30.0 pg 26.0 - 34.0 pg [facility] MCHC (RBC) [Mass/Vol] 32.5 g/dL 30.5 - 36.0 g/dL [facility] MCV (RBC) [Entitic vol] 92.4 fL 80.0 - 100.0 fL [facility] Monocytes (Bld) [#/Vol] 0.50 10*3/uL <0.87 k/uL [facility] Monocytes/100 WBC (Bld) 11.1 % [facility] Neutrophils (Bld) [#/Vol] 2.53 10*3/uL 1.45 - 7.50 k/uL [facility] Neutrophils/100 WBC (Bld) 56.2 % [facility] Nucleated RBC (Bld) [#/Vol] <0.01 k/uL [facility] Nucleated RBC/100 WBC (Bld) [Ratio] 0.0 /100 WBC [facility] Platelet mean volume (Bld) [Entitic vol] 9.9 fL 9.0 - 12.7 fL [facility] Platelets (Bld) [#/Vol] 235 10*3/uL 150 - 400 k/uL [facility] RBC (Bld) [#/Vol] 3.83 10*6/uL Low 3.90 - 5.2 0 m/uL [facility] WBC (Bld) [#/Vol] 4.51 10*3/uL 3.70 - 11. 00 k/uL [facility] CNOVSPon 01-03-2023 CNOVSP Visit (SP) Office (BHAVNA) ISABEL WADDELL ([id number]) 1960 F Date Time Provider Department 01/03/23 3:20 PM HENRY RAMOS During your visit today, we recorded the following information about you: Temperature Pulse Blood pressure Weight 97.8 degrees 95/minute 141/87 71.2 kg Height 1.676 m Henry Ramos MD 01/12/2023 11:27 PM Signed Gynecologic Oncology [facility] Follow up visit Date of service: 01/03/2023 [...] differentiation, FIGO grade 2. Neg LVSI, 13% IN pT1a (IA): Tumor limited to endometrium or invades less than 1/2 of the myometrium 05/25/2021 Vaginal biopsy Vagina, biopsy - Consistent with endometrioid adenocarcinoma (see comment). GZ/ka 05/28/2021 COMMENT The tumor cells are diffusely and strongly positive for immunohistochemical stain for [place] 8, supporting the above diagnosis. The patient [...] ORAL T (more content not included)... Normal [facility] Ferritin SerPl-mCncon 2022 Ferritin [Mass/Vol] 14.2 ng/mL Low 14.7-205.1 [facility] Comment on above: Order Comment: Adonis mayo Type: BLOOD SPECIMEN [facility] Address: [address] [place] [address] Performed By: #### 5 0190-8, 2276-4 #### [facility] CLIA [id number] [address] [place] [address] [place] Iron and Iron binding capaci ty panelon 01-03-2023 Iron [Mass/Vol] 77 ug/dL Normal 41-186 [facility] Comment on above: Order Comment: Adonis mayo Type: BLOOD SPECIMEN [facility] Address: [address] [place] [address] Performed By: #### 5 0190-8, 2276-4 #### [facility] CLIA [id number] [address] STATES OF [facility] Iron binding capacity [Mass/Vol] 382 ug/dL Normal 232-386 [facility] Comment on above: Order Comment: Speci men Type: BLOOD SPECIMEN [facility] Address: [address] [place] [address] Performed By: #### 5 0190-8, 2276-4 #### [facility] CLIA [id number] [address] Iron/TIBC [Molar ratio] 20.2 % Normal 15.0-57.0 [facility] Comment on above: Order Comment: Speci men Type: BLOOD SPECIMEN [facility] Address: [address] [place] [address] Performed By: #### 5 0190-8, 2276-4 #### [facility] CLIA [id number] [address] [place] [address] CNPKlaudia 12-25-2022 CNPN Telephone (BHAVNA) ISABEL WADDELL ([id number]) 1960 F Date Time Provider Department 12/25/22 ARETHA PENA During your visit today, we recorded the following information about you: Aretha Pena RN 12/25/2022 2:19 PM Signed ----- Message from Adyen sent at 12/25/2022 12:04 PM EST ----- Regarding: Rachel Patient bleeding and clotting almost daily since Colonoscopy. September was the Colonoscopy. Concerned and would like to know if she should schedule an appointment. [phone] Aretha Pena RN 12/25/2022 2:24 PM Signed [...] Allergies) Date Reviewed: 09/26/2022 Reviewed by: Francisca óGmez RN - Fully Assessed Reason for Visit: [...] mg by mouth daily at bedtime. - OVOF4-QEM-VQE-FISH OIL-L.CASEI ORAL Take by mouth once daily. [...] Status:Closed by ARETHA PENA on 12/25/22 Normal [facility] Covid-19 PCR (CVDTB)on SARS-CoV-2 (COVID-19) RNA ANGELA+probe Ql (Unsp spec) Not detected Normal NOT DETECTED [facility] Comment on above: Result Comment: When [...] for this test is supported by the Jbphh of Health and Human Service's declaration that [...] longer be used). Performed By: #### [facility] #### [facility] [address] [place] [address] Dr. Cheryl Monzon INFLUENZA A AND B AGon 11-19 INFLUANEGH SEE BELOW Normal [facility] Comment on above: Result Comment: Nega tive for Flu A protein angiten. Infection due to Flu A cannot be ruled out. Flu A angiten in the sample may be below the detection limit of the test. Performed By: #### I NFLUAB #### [facility] [address] [place] [address] Dr. Cheryl Monzon INFLUBNEG SEE BELOW Normal [facility] Comment on above: Result Comment: Nega tive for Flu B protein antigen. Infection due to Flu B cannot be ruled out. Flu B antigen in the sample may be below the detection limit of the test. Performed By: #### I NFLUAB #### [facility] [address] [place] [address] Dr. Cheryl Monzon INFLUENZA A AG Negative Normal NEGATIVE SEE COMMENT [facility] Comment on above: Performed By: #### I NFLUAB #### [facility] [address] [place] [address] Dr. Cheryl Monzon INFLUENZA B AG Negative Normal NEGATIVE SEE COMMENT [facility] Comment on above: Performed By: #### I NFLUAB #### [facility] [address] [place] [address] Dr. Cheryl Monzon MG MAMM SCREEN 3D RAGHU CADon 10-04-2022 MG MAMM SCREEN 3D RAGHU CAD Patient: ISABEL WADDELL Exam Date: 10/04/2022 : 1960 Gender:F Ordering : DR ROLAND SERRANO D.O. Admission #: [id number] Family : Order #: [id number] CLICK HERE TO VIEW EXAM RADIOLOGY REPORT [...] Treatments radiation-hysterectomy Family Cancers None LOCATION: [facility] BREAST COMPOSITION: Scattered areas fibroglandular density. [...] MD on 10/04/2022 at 13:53 Normal [facility] COLONOSCOPY (THERAPEUTIC)on 09-26-2022 [facility] T3, TOTAL (TRIIODOTHYRONINE) on 09-05-2022 T3, TOTAL 132 ng/dL Normal 71-180 [facility] Comment on above: Performed By: #### T 3TOTAL ####[facility] [address] [place], [place] [address]Dr. Cheryl Monzon CBC AUTO DIFFon 09-04-2022 BASO # 0.0 103/ul Normal 0.0-0.1 [facility] Comment on above: Performed By: #### C BC ####[facility] [address] [place], [place] [address]Dr. Cheryl Monzon Basophils/100 WBC (Bld) 0.4 % Normal 0.2-2.0 [facility] Comment on above: Performed By: #### C BC ####[facility] [address] [place], [place] [address]Dr. Cheryl Monzon EO # 0.1 103/ul Normal 0.0-0.7 [facility] Comment on above: Performed By: #### C BC ####[facility] [address] [place], [place] [address]Dr. Cheryl Monzon Eosinophils/100 WBC (Bld) 4.9 % Normal 0.9-7.0 [facility] Comment on above: Performed By: #### C BC ####[facility] [address] [place], [place] [address]Dr. Cheryl Monzon Erythrocyte distribution width (RBC) [Ratio] 12.8 % Normal 11.0-15.0 [facility] Comment on above: Performed By: #### C BC ####[facility] [address] [place], [place] [address]Dr. Cheryl Monzon Hematocrit (Bld) [Volume fraction] 36.7 % Normal 36.0-48.0 [facility] Comment on above: Performed By: #### C BC ####[facility] [address] [place] [id number]. Cheryl Monzon Hemoglobin (Bld) [Mass/Vol] 11.8 g/dL Critically low 12.0-16.[address] [facility] Comment on above: Performed By: #### C BC ####[facility] [address] [place] [address]Dr. Cheryl Monzon IG # 0.01 10e3/ul Normal 0.00-0.03 [facility] Comment on above: Performed By: #### C BC ####[facility] [address] [place], [place] [address]Dr. Cheryl Monzon IG % 0.4 % Normal 0.0-0.[address] [facility] Comment on above: Performed By: #### C BC ####[facility] [address] [place], [place] [address]Dr. Cheryl Monzon LYMPH # 0.8 103/ul Critically low 1.2-3.8 [facility] Comment on above: Performed By: #### C BC ####[facility] [address] [place] [address]Dr. Cheryl Monzon Lymphocytes/100 WBC (Bld) 28.6 % Normal 20.5-60.[address] [facility] Comment on above: Performed By: #### C BC ####[facility] [address] [place] [address]Dr. Cheryl Monzon MANUAL DIFF REQ NO Normal [facility] Comment on above: Performed By: #### C BC ####[facility] [address] [place], [place] [address]Dr. Cheryl Monzon MCH (RBC) [Entitic mass] 30.7 pg Normal 26.7-34.0 [facility] Comment on above: Performed By: #### C BC ####[facility] [address] [place], [place] [address]Dr. Cheryl Monzon MCHC (RBC) [Mass/Vol] 32.2 g/dL Normal 29.9-35.2 [facility] Comment on above: Performed By: #### C BC ####[facility] [address] [place] [id number]. Cheryl Monzon MCV (RBC) [Entitic vol] 95.6 fL Normal 81.0-99.0 [facility] Comment on above: Performed By: #### C BC ####[facility] [address] [place] [id number]. Cheryl Monzon MONO # 0.3 103/ul Normal 0.3-0.8 [facility] Comment on above: Performed By: #### C BC ####[facility] [address] [place] [id number]. Cheryl Monzon Monocytes/100 WBC (Bld) 11.7 % Normal 1.7-12.0 [facility] Comment on above: Performed By: #### C BC ####[facility] [address] [place], [place] [address]Dr. Cheryl Monzon NEUT # 1.4 103/ul Normal 1.4-6.5 [facility] Comment on above: Performed By: #### C BC ####[facility] [address] [place], [place] [address]Dr. Cheryl Monzon Neutrophils/100 WBC (Bld) 54.0 % Normal 43.0-75.0 [facility] Comment on above: Performed By: #### C BC ####[facility] [address] [place] [id number]. Cheryl Monzon Platelet mean volume (Bld) [Entitic vol] 9.2 fL Critically low 9.5-13.5 [facility] Comment on above: Performed By: #### C BC ####[facility] [address] [place] [id number]. Cheryl Monzon PLT 217 103/ul Normal 150-450 [facility] Comment on above: Performed By: #### C BC ####[facility] [address] [place] [id number]. Cheryl Monzon RBC 3.84 106/ul Critically low 4.20-5.40 [facility] Comment on above: Performed By: #### C BC ####[facility] [address] [place] [id number]. Cheryl Monzon WBC 2.7 103/ul Critically low 4.0-11.0 [facility] [place] Comment on above: Performed By: #### C BC ####[facility] [address] [place], [place] [address]NrDr. Cheryl Monzon FREE T4on 09-04-2022 Free T4 [Mass/Vol] 0.83 ng/dL Normal 0.76-1.46 [facility] Comment on above: Performed By: #### F T4 #### [facility] [address] [address] [address] Cheryl Monzon GLYCOHEMOGLOBIN A1Con 2021 ADA RECOMMENDATION SEE BELOW Normal [facility] Comment on above: Result Comment: ADA RECOMMENDED LIMIT 4.0 - 6.0 ADA THERAPEUTIC TARGET < 7.0 ACTION SUGGESTED > 7.0 Performed By: #### A 1C #### [facility] [address] [address] [address] Cheryl Monzon Glucose [Mass/Vol] 111 mg/dL Normal [facility] Comment on above: Performed By: #### A 1C #### [facility] [address] [address] [address] Cheryl Monzon HbA1c (Bld) [Mass fraction] 5.5 % Normal 4.5-6.[address] [facility] Comment on above: Performed By: #### A 1C #### [facility] [address] [address] [address] Cheryl Monzon LIPID PROFILEon 09-04-2022 CHOL-HDL RATIO NORM SEE BELOW Normal [facility] Comment on above: Result Comment: 3.3 - 4.4 LOW RISK 4.4 - 7.1 AVERAGE RISK 7.1 - 11.0 MODERATE RISK >11.0 HIGH RISK Performed By: #### T SH, LIPID, CMP ####[facility] [address] [place] [id number]. Cheryl Monzon Cholesterol [Mass/Vol] 201 mg/dL Critically high <=[address] [facility] Comment on above: Performed By: #### T SH, LIPID, CMP ####[facility] [address] [place], [place] [address]Mk. Cheryl Monzon Cholesterol in HDL [Mass/Vol] 78 mg/dL Critically high 40-60 [facility] Comment on above: Performed By: #### T SH, LIPID, CMP ####[facility] [address] [place], [place] [address]Ao. Cheryl Monzon Cholesterol in LDL [Mass/Vol] 112.8 mg/dL Normal [facility] Comment on above: Performed By: #### T SH, LIPID, CMP ####[facility] [address] [place] [id number]. Cheryl Monzon Cholesterol.total/Chol esterol in HDL [Mass ratio] 2.6 {ratio} Normal [facility] Comment on above: Performed By: #### T SH, LIPID, CMP ####[facility] [address] [place] [id number]. Cheryl Monzon HDL NORMAL > or = 60 mg/dl - LO W CARDIOVASCULAR RISK <40 mg/dl - HIGH CARDIOVASCULAR RISK Normal [facility] Comment on above: Performed By: #### T SH, LIPID, CMP ####[facility] [address] [place] [id number]. Cheryl Monzon LDL CALC NORMAL SEE BELOW Normal [facility] Comment on above: Result Comment: <100 mg/dl OPTIMAL 100 - 129 mg/dl NEAR OR ABOVE OPTIMAL 130 - 159 mg/dl BORDERLINE HIGH 160 - 189 mg/dl HIGH >190 mg/dl VERY HIGH Performed By: #### T SH, LIPID, CMP ####[facility] [address] [place] [id number]. Cheryl Monzon Triglyceride [Mass/Vol] 51 mg/dL Normal <=150 [facility] Comment on above: Performed By: #### T SH, LIPID, CMP ####[facility] [address] [place] [id number]. Lissettalden Monzon VLDL CALC 10.2 mg/dL Normal [facility] Comment on above: Performed By: #### T SH, LIPID, CMP ####[facility] [address] [place] [address]Dr. Cheryl Monzon PROF 14(COMP METB)on 022 Albumin [Mass/Vol] 3.3 g/dL Critically low 3.4-5.0 [facility] Comment on above: Performed By: #### T SH, LIPID, CMP #### [facility] [address] [address] [address] Cheryl Monzon Albumin/Globulin [Mass ratio] 1.0 {ratio} Normal [facility] Comment on above: Performed By: #### T SH, LIPID, CMP #### [facility] [address] [address] [address] Cheryl Monzon ALP [Catalytic activity/Vol] 94 U/L Normal 46-[address] [facility] Comment on above: Performed By: #### T SH, LIPID, CMP #### [facility] [address] [address] [address] Cheryl Monzon ALT [Catalytic activity/Vol] 53 U/L Normal 14-[address] [facility] Comment on above: Performed By: #### T SH, LIPID, CMP #### [facility] [address] [address] [address] Cheryl Monzon Anion gap [Moles/Vol] 8.8 mmol/L Normal [facility] Comment on above: Performed By: #### T SH, LIPID, CMP #### [facility] [address] [address] [address] Cheryl Monzon AST [Catalytic activity/Vol] 42 U/L Critically high 15-[address] [facility] Comment on above: Performed By: #### T SH, LIPID, CMP #### [facility] [address] [address] [address] Cheryl Monzon Bilirubin [Mass/Vol] 0.3 mg/dL Normal 0.2-1.[address] [facility] Comment on above: Performed By: #### T SH, LIPID, CMP #### [facility] [address] [address] [address] Cheryl Monzon Calcium [Mass/Vol] 8.8 mg/dL Normal 8.5-10.1 [facility] Comment on above: Performed By: #### T SH, LIPID, CMP #### [facility] [address] [address] [address] Cheryl Monzon Chloride [Moles/Vol] 106 mmol/L Normal 98-[address] [facility] Comment on above: Performed By: #### T SH, LIPID, CMP #### [facility] [address] [address] [address] Cheryl Monzon CO2 [Moles/Vol] 30.7 mmol/L Normal 21.0-32.0 [facility] Comment on above: Performed By: #### T SH, LIPID, CMP #### [facility] [address] [address] [address] Cheryl Monzon Creatinine [Mass/Vol] 0.66 mg/dL Normal 0.55-1.[address] [facility] Comment on above: Performed By: #### T SH, LIPID, CMP #### [facility] [address] [address] [address] Cheryl Monzon EGFR-AF TANZANIAN >60 Normal >=60 [facility] Comment on above: Performed By: #### T SH, LIPID, CMP #### [facility] [address] [address] [address] Cheryl Monzon EGFR-NON AF TANZANIAN >60 Normal >=[address] [facility] Comment on above: Performed By: #### T SH, LIPID, CMP #### [facility] [address] [address] [address] Cheryl Monzon Globulin (S) [Mass/Vol] 3.4 g/dL Normal [facility] Comment on above: Performed By: #### T SH, LIPID, CMP #### [facility] [address] [address] [address] Cheryl Monzon Glucose [Mass/Vol] 115 mg/dL Critically high 74-106 [facility] Comment on above: Performed By: #### T SH, LIPID, CMP #### [facility] [address] [address] [address] Cheryl Monzon Potassium [Moles/Vol] 4.5 mmol/L Normal 3.5-5.[address] [facility] Comment on above: Performed By: #### T SH, LIPID, CMP #### [facility] [address] [place] [address] Dr. Cheryl Monzon Protein [Mass/Vol] 6.7 g/dL Normal 6.4-8.2 [facility] Comment on above: Performed By: #### T SH, LIPID, CMP #### [facility] [address] [place] [address] Dr. Cheryl Monzon Sodium [Moles/Vol] 141 mmol/L Normal 136-145 [facility] Comment on above: Performed By: #### T SH, LIPID, CMP #### [facility] [address] [place] [address] Dr. Cheryl Monzon Urea nitrogen [Mass/Vol] 16.0 mg/dL Normal 7.0-18.[address] [facility] Comment on above: Performed By: #### T SH, LIPID, CMP #### [facility] [address] [place] [address] Dr. Cheryl Monzon Urea nitrogen/Creatinine [Mass ratio] 24.2 mg/mg Normal [facility] Comment on above: Performed By: #### T SH, LIPID, CMP #### [facility] [address] [place] [address] Dr. Cheryl Monzon TSHon 09-04-2022 TSH 0.009 uIU/mL Critically low 0.358-3.740 [facility] Comment on above: Performed By: #### T SH, LIPID, CMP #### [facility] [address] [place] [address] Dr. Cheryl Monzon [facility] SARS-CoV-2 (COVID-19) RNA ANGELA+probe Ql (Unsp spec) Not detected Normal NOT DETECTED [facility] Comment on above: Result Comment: When [...] for this test is supported by the [employer] of Health and Human Service's declaration that [...] used). Performed By: #### C VDTBH #### [facility] [address] [place], [place] [address] Dr. Cheryl Monzon CBC with Diffon 11-22-2021 Abs. Basophil 0.00 k/uL Normal 0.0-0.2 [facility] Comment on above: Performed By: #### C DP, CMPX, SED, LAC #### [facility] [address] [place] [address] Emergency Worker: Jacob Campos MD Abs.Neutrophil (Seg) 2.80 k/uL Normal 2.5-7.0 [facility] Comment on above: Performed By: #### C DP, CMPX, SED, LAC #### [facility] [address] [place] [address] Emergency Worker: Jacob Campos MD Auto Diff Performed YES Normal [facility] Comment on above: Performed By: #### C DP, CMPX, SED, LAC #### [facility] [address] [place] [id number] Emergency Worker: Jacob Campos MD Basophils/100 WBC (Bld) 1 % Normal 0-2 [facility] Comment on above: Performed By: #### C DP, CMPX, SED, LAC #### [facility] [address] [place] [id number] Emergency Worker: Jacob Campos MD Eosinophils (Bld) [#/Vol] 0.10 10*3/uL Normal 0.0-0.4 [facility] Comment on above: Performed By: #### C DP, CMPX, SED, LAC #### [facility] [address] [place] [address] Emergency Worker: Jacob Campos MD Eosinophils/100 WBC (Bld) 3 % Normal 0-5 [facility] Comment on above: Performed By: #### C DP, CMPX, SED, LAC #### [facility] [address] [place] [id number] Emergency Worker: Jacob Campos MD Erythrocyte distribution width (RBC) [Ratio] 13.6 % Normal 12.1-15.2 [facility] Comment on above: Performed By: #### C DP, CMPX, SED, LAC #### [facility] [address] [place] [id number] Emergency Worker: Jacob Campos MD Hematocrit (Bld) [Volume fraction] 33.4 % Low 36-46 [facility] Comment on above: Performed By: #### C DP, CMPX, SED, LAC #### [facility] [address] [place] [id number] Emergency Worker: Jacob Campos MD Hemoglobin (Bld) [Mass/Vol] 11.3 g/dL Low 12.0-16.0 [facility] Comment on above: Performed By: #### C DP, CMPX, SED, LAC #### [facility] [address] [place] [id number] Emergency Worker: Jacob Campos MD Lymphocytes (Bld) [#/Vol] 0.80 10*3/uL Low 1.0-4.8 [facility] Comment on above: Performed By: #### C DP, CMPX, SED, LAC #### [facility] [address] [place] [address] Emergency Worker: Jacob Campos MD Lymphocytes/100 WBC (Bld) 19 % Normal 15-40 [facility] Comment on above: Performed By: #### C DP, CMPX, SED, LAC #### [facility] [address] [place], [place] [id number] Emergency Worker: Jacob Campos MD MCH (RBC) [Entitic mass] 30.5 pg Normal 26-34 [facility] Comment on above: Performed By: #### C DP, CMPX, SED, LAC #### [facility] [address] [place] [address] Emergency Worker: Jacob Campos MD MCHC (RBC) [Mass/Vol] 33.8 g/dL Normal 31-37 [facility] Comment on above: Performed By: #### C DP, CMPX, SED, LAC #### [facility] [address] [place] [address] Emergency Worker: Jacob Campos MD MCV (RBC) [Entitic vol] 90.4 fL Normal 80-100 [facility] Comment on above: Performed By: #### C DP, CMPX, SED, LAC #### [facility] [address] [place] [address] Emergency Worker: Jacob Campos MD Monocytes (Bld) [#/Vol] 0.50 10*3/uL Normal 0.0-1.0 [facility] Comment on above: Performed By: #### C DP, CMPX, SED, LAC #### [facility] [address] [place] [address] Emergency Worker: Jacob Campos MD Monocytes/100 WBC (Bld) 12 % High 4-8 [facility] Comment on above: Performed By: #### C DP, CMPX, SED, LAC #### [facility] [address] [place], [place] [phone] Emergency Worker: Jacob Campos MD Neutrophil (Seg) 65 % Normal 47-75 [facility] Comment on above: Performed By: #### C DP, CMPX, SED, LAC #### [facility] [address] [place] [address] Emergency Worker: Jacob Campos MD Platelets (Bld) [#/Vol] 378 10*3/uL Normal 140-450 [facility] Comment on above: Performed By: #### C DP, CMPX, SED, LAC #### [facility] [address] [place] [address] Emergency Worker: Jacob Campos MD RBC (Bld) [#/Vol] 3.70 10*6/uL Low 4.0-5.2 [facility] Comment on above: Performed By: #### C DP, CMPX, SED, LAC #### [facility] [address] [place] [address] Emergency Worker: Jacob Campos MD WBC (Bld) [#/Vol] 4.3 10*3/uL Normal 3.5-11.0 [facility] Comment on above: Performed By: #### C DP, CMPX, SED, LAC #### [facility] [address] [place] [address] Emergency Worker: Jacob Campos MD Comp Metabolic Pr/rfx MGon 0 11-22-2021 (cont.) Normal [facility] Comment on above: Result Comment: Aver age GFR for 60-69 years old: 85 mL/min/1.73sq m Chronic Kidney Disease: <60 mL/min/1.73sq m Kidney failure: <15 mL/min/1.73sq m eGFR calculated using average adult body mass. Additional eGFR calculator available at: http://www.[employer].com/multiple_crcl_2012.htm Performed By: #### C DP, CMPX, SED, LAC #### [facility] [address] [place] [address] Emergency Worker: Jacob Campos MD Albumin [Mass/Vol] 3.5 g/dL Normal 3.5-5.2 [facility] Comment on above: Performed By: #### C DP, CMPX, SED, LAC #### [facility] [address] [place], [place] [id number] Emergency Worker: Jacob Campos MD Alkaline Phos 239 U/L High 35-104 [facility] Comment on above: Performed By: #### C DP, CMPX, SED, LAC #### [facility] [address] [place], [place] [phone] Emergency Worker: Jacob Campos MD ALT [Catalytic activity/Vol] 23 U/L Normal 5-33 [facility] Comment on above: Performed By: #### C DP, CMPX, SED, LAC #### [facility] [address] [place], [place] [id number] Emergency Worker: Jacob Campos MD Anion gap [Moles/Vol] 11 mmol/L Normal 9-17 [facility] Comment on above: Performed By: #### C DP, CMPX, SED, LAC #### [facility] [address] [place], [place] [phone] Emergency Worker: Jacob Campos MD AST [Catalytic activity/Vol] 21 U/L Normal <32 [facility] Comment on above: Performed By: #### C DP, CMPX, SED, LAC #### [facility] [address] [place], [place] [id number] Emergency Worker: Jacob Campos MD Bilirubin [Mass/Vol] 0.27 mg/dL Low 0.30-1.20 [facility] Comment on above: Performed By: #### C DP, CMPX, SED, LAC #### [facility] [address] [place], [place] [phone] Emergency Worker: Jacob Campos MD BUN/CRE Ratio 22 High 9-20 [facility] Comment on above: Performed By: #### C DP, CMPX, SED, LAC #### [facility] [address] [place] [address] Emergency Worker: Jacob Campos MD Calcium [Mass/Vol] 9.5 mg/dL Normal 8.6-10.4 [facility] Comment on above: Performed By: #### C DP, CMPX, SED, LAC #### [facility] [address] [place] [id number] Emergency Worker: Jacob Campos MD Chloride [Moles/Vol] 102 mmol/L Normal 98-107 [facility] Comment on above: Performed By: #### C DP, CMPX, SED, LAC #### [facility] [address] [place] [id number] Emergency Worker: Jacob Campos MD CO2 [Moles/Vol] 26 mmol/L Normal 20-31 [facility] Comment on above: Performed By: #### C DP, CMPX, SED, LAC #### [facility] [address] [place] [id number] Emergency Worker: Jacob Campos MD Creatinine [Mass/Vol] 0.58 mg/dL Normal 0.50-0.90 [facility] Comment on above: Performed By: #### C DP, CMPX, SED, LAC #### [facility] [address] [place] [phone] Emergency Worker: Jacob Campos MD GFR, Amer >60 Normal >60 [facility] Comment on above: Performed By: #### C DP, CMPX, SED, LAC #### [facility] [address] [place] [address] Emergency Worker: Jacob Campos MD GFR,non Amer >60 Normal >60 [facility] Comment on above: Performed By: #### C DP, CMPX, SED, LAC #### [facility] [address] [place], [place] [phone] Emergency Worker: Jacob Campos MD Glucose [Mass/Vol] 109 mg/dL High 70-99 [facility] Comment on above: Performed By: #### C DP, CMPX, SED, LAC #### [facility] [address] [place], [place] [id number] Emergency Worker: Jacob Campos MD Potassium [Moles/Vol] 3.7 mmol/L Normal 3.7-5.3 [facility] Comment on above: Performed By: #### C DP, CMPX, SED, LAC #### [facility] [address] [place] [id number] Emergency Worker: Jacob Campos MD Protein [Mass/Vol] 7.0 g/dL Normal 6.4-8.3 [facility] Comment on above: Performed By: #### C DP, CMPX, SED, LAC #### [facility] [address] [place], [place] [phone] Emergency Worker: Jacob Campos MD Sodium [Moles/Vol] 139 mmol/L Normal 135-144 [facility] Comment on above: Performed By: #### C DP, CMPX, SED, LAC #### [facility] [address] [place], [place] [phone] Emergency Worker: Jacob Campos MD Urea nitrogen [Mass/Vol] 13 mg/dL Normal 8-23 [facility] Comment on above: Performed By: #### C DP, CMPX, SED, LAC #### [facility] [address] [place], [place] [phone] Emergency Worker: Jacob Campos MD Lactic Acidon 11-22-2021 Lactate [Moles/Vol] 0.7 mmol/L Normal 0.5-2.2 [facility] Comment on above: Performed By: #### C DP, CMPX, SED, LAC #### [facility] [address] [place], [place] [phone] Emergency Worker: Jcaob Campos MD Sedimentation Rateon 022 Sedimentation Rate 48 mm High 0-30 [facility] Comment on above: Performed By: #### C DP, CMPX, SED, LAC #### [facility] [address] [place], [place] [id number] Emergency Worker: Jacob Campos MD Urinalysis, Routineon 2021 Bilirubin, SemiQt,Ur Negative Normal NEG [facility] Comment on above: Performed By: #### U A #### [facility] [address] [place], [place] [phone] Emergency Worker: Jacob Campos MD Blood, Urine Negative Normal NEG [facility] Comment on above: Performed By: #### U A #### [facility] [address] [place], [place] [phone] Emergency Worker: Jacob Campos MD Clarity (U) Clear Normal CLEAR [facility] Comment on above: Performed By: #### U A #### [facility] [address] [place], [place] [id number] Emergency Worker: Jacob Campos MD Color (U) Yellow Normal YEL [facility] Comment on above: Performed By: #### U A #### [facility] [address] [place], [place] [id number] Emergency Worker: Jacob Campos MD Comment Normal [facility] Comment on above: Performed By: #### U A #### [facility] [address] [place], [place] [phone] Emergency Worker: Jacob Campos MD Glucose Ql (U) Negative Normal NEG [facility] Comment on above: Performed By: #### U A #### [facility] [address] [place], [place] [phone] Emergency Worker: Jacob Campos MD Ketones Ql (U) Negative Normal NEG [facility] Comment on above: Performed By: #### U A #### [facility] [address] [place], [place] [id number] Emergency Worker: Jacob Campos MD Leukocyte esterase Test strip Ql (U) Negative Normal NEG [facility] Comment on above: Performed By: #### U A #### [facility] [address] [place], [place] [phone] Emergency Worker: Jacob Campos MD Nitrite,Ur Negative Normal NEG [facility] Comment on above: Performed By: #### U A #### [facility] [address] [place], [place] [phone] Emergency Worker: Jacob Campos MD PH,Ur 6.5 Normal 5.0-8.0 [facility] Comment on above: Performed By: #### U A #### [facility] [address] [place], [place] [phone] Emergency Worker: Jacob Campos MD Protein Ql (U) Negative Normal NEG [facility] Comment on above: Performed By: #### U A #### [facility] [address] [place], [place] [id number] Emergency Worker: Jacob Campos MD Spec. [place],Ur 1.015 Normal 1.005-1.030 [facility] Comment on above: Performed By: #### U A #### [facility] [address] [place], [place] [phone] Emergency Worker: Jacob Campos MD Urobilinogen,Ur Normal Normal NORM [facility] Comment on above: Performed By: #### U A #### [facility] [address] [place], [place] [id number] Emergency Worker: Jacob Campos MD Basic Metabolic Panelon Calcium [Mass/Vol] 9.4 mg/dL Normal 8.2-10.2 [facility] Comment on above: Performed By: #### C BC, BMP #### [facility] [address] Chloride [Moles/Vol] 101 mmol/L Normal 95-114 [facility] Comment on above: Performed By: #### C BC, BMP #### [facility] [address] CO2 [Moles/Vol] 26.3 mmol/L Normal 22.0-30.0 [facility] Comment on above: Performed By: #### C BC, BMP #### [facility] [address] Creatinine [Mass/Vol] 0.72 mg/dL Normal 0.44-1.03 [facility] Comment on above: Performed By: #### C BC, BMP #### [facility] [address] [place] [address] [place] Creatinine Clr Calc Pharmacy 76.81 [facility] Comment on above: Result Comment: PERF ORMED BY: [place] [address] PATHOLOGIST FURNISHINGS CONSERVATOR CLAIRE ANTHONY M.D. Performed By: #### C BC, BMP #### [facility] [address] Estimated GFR ( [place] > 60 [facility] Comment on above: Result Comment: GFR estimated reference range: According to KDOQI guidelines, <60 ml/min/1.73m2 is sufficient to diagnose a patient with chronic kidney disease. Performed By: #### C BC, BMP #### [facility] [address] Estimated GFR (Non- Am > 60 [facility] Comment on above: Performed By: #### C BC, BMP #### [facility] [address] Glucose [Mass/Vol] 104 mg/dL High 70-100 [facility] Comment on above: Result Comment: [place] Glucose Reference Range is dependent on time and content of last meal. Glucose of more than 200 mg/dL in a nonstressed, ambulatory subject supports the diagnosis of Diabetes Mellitus. ADA recommended reference range Performed By: #### C BC, BMP #### [facility] [address] Potassium [Moles/Vol] 3.8 mmol/L Normal 3.5-5.1 [facility] Comment on above: Performed By: #### C BC, BMP #### [facility] [address] Sodium [Moles/Vol] 138 mmol/L Normal 136-146 [facility] Comment on above: Performed By: #### C BC, BMP #### [facility] [address] Urea nitrogen [Mass/Vol] 13 mg/dL Normal 9-23 [facility] Comment on above: Performed By: #### C BC, BMP #### [facility] [address] CBC with Diffon 11-21-2021 Abs.Imm.Granulocyte NOT REPORTED Normal 0.00-0.30 [facility] Comment on above: Performed By: #### C DP, CMPX, SED, LAC #### [facility] [address] [place] [address] Emergency Worker: Jacob Campos MD Immature Granulocyte NOT REPORTED Normal 0 [facility] Comment on above: Performed By: #### C DP, CMPX, SED, LAC #### [facility] [address] [place] [address] Emergency Worker: Jacob Campos MD MPV NOT REPORTED Normal 6.0-12.0 [facility] Comment on above: Performed By: #### C DP, CMPX, SED, LAC #### [facility] [address] [place] [address] Emergency Worker: Jacob Campos MD NRBC Automated NOT REPORTED Normal [facility] Comment on above: Performed By: #### C DP, CMPX, SED, LAC #### [facility] [address] [place], [place] [id number] Emergency Worker: Jacob Campos MD Platelet Comment NOT REPORTED Normal [facility] Comment on above: Performed By: #### C DP, CMPX, SED, LAC #### [facility] [address] [place], [place] [phone] Emergency Worker: Jacob Campos MD RBC morphology finding Nom (Bld) NOT REPORTED Normal [facility] Comment on above: Performed By: #### C DP, CMPX, SED, LAC #### [facility] [address] [place] [phone] Emergency Worker: Jacob Campos MD WBC Morphology NOT REPORTED Normal [facility] Comment on above: Performed By: #### C DP, CMPX, SED, LAC #### [facility] [address] [place] [phone] Emergency Worker: Jacob Campos MD Comp Metabolic Pr/rfx MGon 0 11-21-2021 Albumin/Glob Ratio NOT REPORTED Normal 1.0-2.5 [facility] Comment on above: Performed By: #### C DP, CMPX, SED, LAC #### [facility] [address] [place], [place] [id number] Emergency Worker: Jacob Campos MD Staging: NOT REPORTED Normal [facility] Comment on above: Performed By: #### C DP, CMPX, SED, LAC #### [facility] [address] [place], [place] [phone] Emergency Worker: Jacob Campos MD Complete Blood Count Auto Di ffon 11-21-2021 Basophils (Bld) [#/Vol] 0.0 10*3/uL Normal 0.0-0.2 [facility] Comment on above: Result Comment: PERF ORMED BY: [facility] [address] [place] [address] PATHOLOGIST FURNISHINGS CONSERVATOR CLAIRE ANTHONY M.D. Performed By: #### C BC, BMP #### [facility] [address] [place] [address] [place] Basophils/100 WBC (Bld) 0.7 % Normal . [facility] Comment on above: Performed By: #### C BC, BMP #### [facility] [address] [place] [phone] [place] Eosinophils (Bld) [#/Vol] 0.1 10*3/uL Normal 0.0-0.45 [facility] Comment on above: Performed By: #### C BC, BMP #### [facility] [address] [place] [address] [place] Eosinophils/100 WBC (Bld) 2.8 % Normal . [facility] Comment on above: Performed By: #### C BC, BMP #### [facility] [address] Erythrocyte distribution width (RBC) [Ratio] 13.2 % Normal 11.9-15.3 [facility] Comment on above: Performed By: #### C BC, BMP #### [facility] [address] [place] [address] [place] Hematocrit (Bld) [Volume fraction] 35.7 % Normal 34.0-46.4 [facility] Comment on above: Performed By: #### C BC, BMP #### [facility] [address] [place] [address] [place] Hemoglobin (Bld) [Mass/Vol] 11.9 g/dL Normal 11.8-15.4 [facility] Comment on above: Performed By: #### C BC, BMP #### [facility] [address] [place] [phone] [place] Lymphocytes (Bld) [#/Vol] 0.8 10*3/uL Low 1.00-4.8 [facility] Comment on above: Performed By: #### C BC, BMP #### [facility] [address] [place] [phone] [place] Lymphocytes/100 WBC (Bld) 16.7 % Normal . [facility] Comment on above: Performed By: #### C BC, BMP #### [facility] [address] MCH (RBC) [Entitic mass] 30.2 pg Normal 24.7-34.3 [facility] Comment on above: Performed By: #### C BC, BMP #### [facility] [address] MCV (RBC) [Entitic vol] 90.6 fL Normal 80-100 [facility] Comment on above: Performed By: #### C BC, BMP #### [facility] [address] Mean Corpuscular HGB Conc 33.3 g/dL Normal 32.0-35.0 [facility] Comment on above: Performed By: #### C BC, BMP #### [facility] [address] Monocytes (Bld) [#/Vol] 0.4 10*3/uL Normal 0.0-0.8 [facility] Comment on above: Performed By: #### C BC, BMP #### [facility] [address] [place] [address] [place] Monocytes/100 WBC (Bld) 9.1 % Normal . [facility] Comment on above: Performed By: #### C BC, BMP #### [facility] [address] Neutrophils (Bld) [#/Vol] 3.4 10*3/uL Normal 1.8-7.7 [facility] Comment on above: Performed By: #### C BC, BMP #### [facility] [address] [place] [address] [place] Neutrophils/100 WBC (Bld) 70.7 % Normal . [facility] Comment on above: Performed By: #### C BC, BMP #### [facility] [address] Nucleated RBC/100 WBC (Bld) [Ratio] 0.0 % Normal 0-0.5 [facility] Comment on above: Performed By: #### C BC, BMP #### [facility] [address] Platelet mean volume (Bld) [Entitic vol] 6.9 fL Normal 6.3-10.7 [facility] Comment on above: Performed By: #### C BC, BMP #### [facility] [address] [place] [phone] [place] Platelets (Bld) [#/Vol] 423 10*3/uL Normal 150-450 [facility] Comment on above: Performed By: #### C BC, BMP #### [facility] [address] RBC (Bld) [#/Vol] 3.94 10*6/uL Normal 3.60-5.00 [facility] Comment on above: Performed By: #### C BC, BMP #### [address] WBC (Bld) [#/Vol] 4.8 10*3/uL Normal 4.5-11.0 [facility] Comment on above: Performed By: #### C BC, BMP #### [place] [address] [place] Dipstick and Microscopicon 0 11-21-2021 Appearance (U) Clear Normal Clear [facility] Comment on above: Order Comment: Name Collection Type:: Clean-Voided Midstream Performed By: #### C BC, BMP #### [place] [address] [place] Bacteria,Urine None Seen Normal None Seen [facility] Comment on above: Order Comment: Name Collection Type:: Clean-Voided Midstream Performed By: #### C BC, BMP #### [place] [address] [place] Bilirubin,Urine Negative Normal Negative [facility] Comment on above: Order Comment: Name Collection Type:: Clean-Voided Midstream Performed By: #### C BC, BMP #### [place] [address] [place] Color (U) Yellow Normal Yellow [facility] Comment on above: Order Comment: Name Collection Type:: Clean-Voided Midstream Performed By: #### C BC, BMP #### [facility] [address] Glucose Ql (U) Normal Normal Normal [facility] Comment on above: Order Comment: Name Collection Type:: Clean-Voided Midstream Performed By: #### C BC, BMP #### [facility] [address] [place] [address] [place] Hyaline Casts,Urine 0-8 Normal 0-8 [facility] Comment on above: Order Comment: Name Collection Type:: Clean-Voided Midstream Result Comment: PERF ORMED BY: [place] [address] PATHOLOGIST FURNISHINGS CONSERVATOR CLAIRE ANTHONY M.D. Performed By: #### C BC, BMP #### [facility] [address] [place] [address] Ketones Ql (U) Negative Normal Negative [facility] Comment on above: Order Comment: Name Collection Type:: Clean-Voided Midstream Performed By: #### C BC, BMP #### [address] Leukocyte esterase Test strip Ql (U) 1+ High Negative [facility] Comment on above: Order Comment: Name Collection Type:: Clean-Voided Midstream Performed By: #### C BC, BMP #### [facility] [address] [place] [address] [place] Nitrite,Urine Negative Normal Negative [facility] Comment on above: Order Comment: Name Collection Type:: Clean-Voided Midstream Performed By: #### C BC, BMP #### [facility] [address] [place] [address] [place] Occult Blood,Urine Negative Normal Negative [facility] Comment on above: Order Comment: Name Collection Type:: Clean-Voided Midstream Result Comment: PERF ORMED BY: [place] [address] PATHOLOGIST FURNISHINGS CONSERVATOR CLAIRE ANTHONY M.D. Performed By: #### C BC, BMP #### [address] pH (U) 6.5 [pH] Normal 5.0-9.0 [facility] Comment on above: Order Comment: Name Collection Type:: Clean-Voided Midstream Performed By: #### C BC, BMP #### [address] Protein,Urine Negative Normal Negative [facility] Comment on above: Order Comment: Name Collection Type:: Clean-Voided Midstream Performed By: #### C BC, BMP #### [address] RBC,Urine 1-2 Normal 0-4 [facility] Comment on above: Order Comment: Name Collection Type:: Clean-Voided Midstream Performed By: #### C BC, BMP #### [address] Specificy [place],Urine 1.014 Normal 1.001-1.030 [facility] Comment on above: Order Comment: Name Collection Type:: Clean-Voided Midstream Performed By: #### C BC, BMP #### [address] Squamous Epithelial Cell,Urine None Seen Normal 0-2 [facility] Comment on above: Order Comment: Name Collection Type:: Clean-Voided Midstream Performed By: #### C BC, BMP #### [address] Urobilinogen,Urine Normal Normal Normal [facility] Comment on above: Order Comment: Name Collection Type:: Clean-Voided Midstream Performed By: #### C BC, BMP #### [place] [address] [place] WBC,Urine 1-2 Normal 0-4 [facility] Comment on above: Order Comment: Name Collection Type:: Clean-Voided Midstream Performed By: #### C BC, BMP #### [address] Complete Blood Count Auto Di ffon 11-04-2021 Basophils (Bld) [#/Vol] 0.0 10*3/uL Normal 0.0-0.2 [facility] Comment on above: Result Comment: PERF ORMED BY: [place] [address] PATHOLOGIST FURNISHINGS CONSERVATOR CLAIRE ANTHONY M.D. Performed By: #### C BC, BMP #### [address] Basophils/100 WBC (Bld) 0.1 % Normal . [facility] Comment on above: Performed By: #### C BC, BMP #### [address] Eosinophils (Bld) [#/Vol] 0.1 10*3/uL Normal 0.0-0.45 [facility] Comment on above: Performed By: #### C BC, BMP #### [address] Eosinophils/100 WBC (Bld) 1.3 % Normal . [facility] Comment on above: Performed By: #### C BC, BMP #### [address] Erythrocyte distribution width (RBC) [Ratio] 13.0 % Normal 11.9-15.3 [facility] Comment on above: Performed By: #### C BC, BMP #### [address] Hematocrit (Bld) [Volume fraction] 27.5 % Low 34.0-46.4 [facility] Comment on above: Performed By: #### C BC, BMP #### [address] Hemoglobin (Bld) [Mass/Vol] 9.3 g/dL Low 11.8-15.4 [facility] Comment on above: Performed By: #### C BC, BMP #### [address] Lymphocytes (Bld) [#/Vol] 0.5 10*3/uL Low 1.00-4.8 [facility] Comment on above: Performed By: #### C BC, BMP #### [facility] [address] [place] [address] [place] Lymphocytes/100 WBC (Bld) 6.3 % Normal . [facility] Comment on above: Performed By: #### C BC, BMP #### [facility] [address] MCH (RBC) [Entitic mass] 31.1 pg Normal 24.7-34.3 [facility] Comment on above: Performed By: #### C BC, BMP #### [facility] [address] MCV (RBC) [Entitic vol] 92.0 fL Normal 80-100 [facility] Comment on above: Performed By: #### C BC, BMP #### [facility] [address] Mean Corpuscular HGB Conc 33.8 g/dL Normal 32.0-35.0 [facility] Comment on above: Performed By: #### C BC, BMP #### [facility] [address] [place] [address] [place] Monocytes (Bld) [#/Vol] 0.8 10*3/uL Normal 0.0-0.8 [facility] Comment on above: Performed By: #### C BC, BMP #### [facility] [address] [place] [address] [place] Monocytes/100 WBC (Bld) 10.8 % Normal . [facility] Comment on above: Performed By: #### C BC, BMP #### [facility] [address] [place] [address] [place] Neutrophils (Bld) [#/Vol] 5.9 10*3/uL Normal 1.8-7.7 [facility] Comment on above: Performed By: #### C BC, BMP #### [facility] [address] Neutrophils/100 WBC (Bld) 81.5 % Normal . [facility] Comment on above: Performed By: #### C BC, BMP #### [facility] [address] Nucleated RBC/100 WBC (Bld) [Ratio] 0.0 % Normal 0-0.5 [facility] Comment on above: Performed By: #### C BC, BMP #### [facility] [address] Platelet mean volume (Bld) [Entitic vol] 7.4 fL Normal 6.3-10.7 [facility] Comment on above: Performed By: #### C BC, BMP #### [facility] [address] [place] [address] [place] Platelets (Bld) [#/Vol] 135 10*3/uL Low 150-450 [facility] Comment on above: Performed By: #### C BC, BMP #### [facility] [address] RBC (Bld) [#/Vol] 2.99 10*6/uL Low 3.60-5.00 [facility] Comment on above: Performed By: #### C BC, BMP #### [facility] [address] WBC (Bld) [#/Vol] 7.3 10*3/uL Normal 4.5-11.0 [facility] Comment on above: Performed By: #### C BC, BMP #### [facility] [address] Electrolyteson 11-04-2021 Chloride [Moles/Vol] 106 mmol/L Normal 95-114 [facility] Comment on above: Performed By: #### C BC, BMP #### [address] CO2 [Moles/Vol] 25.2 mmol/L Normal 22.0-30.0 [facility] Comment on above: Result Comment: PERF ORMED BY: [place] [address] PATHOLOGIST FURNISHINGS CONSERVATOR CLAIRE ANTHONY M.D. Performed By: #### C BC, BMP #### [address] Potassium [Moles/Vol] 3.7 mmol/L Normal 3.5-5.1 [facility] Comment on above: Performed By: #### C BC, BMP #### [address] Sodium [Moles/Vol] 137 mmol/L Normal 136-146 [facility] Comment on above: Performed By: #### C BC, BMP #### [address] Complete Blood Count Auto Di ffon 11-03-2021 Basophils (Bld) [#/Vol] 0.0 10*3/uL Normal 0.0-0.2 [facility] Comment on above: Result Comment: PERF ORMED BY: [place] [address] PATHOLOGIST FURNISHINGS CONSERVATOR CLAIRE ANTHONY M.D. Performed By: #### C BC, BMP #### [address] Basophils/100 WBC (Bld) 0.1 % Normal . [facility] Comment on above: Performed By: #### C BC, BMP #### [address] Eosinophils (Bld) [#/Vol] 0.0 10*3/uL Normal 0.0-0.45 [facility] Comment on above: Performed By: #### C BC, BMP #### [address] Eosinophils/100 WBC (Bld) 0.3 % Normal . [facility] Comment on above: Performed By: #### C BC, BMP #### [address] Erythrocyte distribution width (RBC) [Ratio] 12.8 % Normal 11.9-15.3 [facility] Comment on above: Performed By: #### C BC, BMP #### [facility] [address] Hematocrit (Bld) [Volume fraction] 29.5 % Low 34.0-46.4 [facility] Comment on above: Performed By: #### C BC, BMP #### [address] Hemoglobin (Bld) [Mass/Vol] 9.9 g/dL Low 11.8-15.4 [facility] Comment on above: Performed By: #### C BC, BMP #### [address] Lymphocytes (Bld) [#/Vol] 0.5 10*3/uL Low 1.00-4.8 [facility] Comment on above: Performed By: #### C BC, BMP #### [address] Lymphocytes/100 WBC (Bld) 7.4 % Normal . [facility] Comment on above: Performed By: #### C BC, BMP #### [address] MCH (RBC) [Entitic mass] 30.9 pg Normal 24.7-34.3 [facility] Comment on above: Performed By: #### C BC, BMP #### [address] MCV (RBC) [Entitic vol] 92.1 fL Normal 80-100 [facility] Comment on above: Performed By: #### C BC, BMP #### [address] Mean Corpuscular HGB Conc 33.6 g/dL Normal 32.0-35.0 [facility] Comment on above: Performed By: #### C BC, BMP #### [address] Monocytes (Bld) [#/Vol] 0.7 10*3/uL Normal 0.0-0.8 [facility] Comment on above: Performed By: #### C BC, BMP #### [address] [place] [address] [place] Monocytes/100 WBC (Bld) 10.0 % Normal . [facility] Comment on above: Performed By: #### C BC, BMP #### [facility] [address] Neutrophils (Bld) [#/Vol] 5.8 10*3/uL Normal 1.8-7.7 [facility] Comment on above: Performed By: #### C BC, BMP #### [facility] [address] Neutrophils/100 WBC (Bld) 82.2 % Normal . [facility] Comment on above: Performed By: #### C SANTANA, BMP #### [facility] [address] Nucleated RBC/100 WBC (Bld) [Ratio] 0.0 % Normal 0-0.5 [facility] Comment on above: Performed By: #### C SANTANA, BMP #### [facility] [address] Platelet mean volume (Bld) [Entitic vol] 8.1 fL Normal 6.3-10.7 [facility] Comment on above: Performed By: #### C SANTANA, BMP #### [address] Platelets (Bld) [#/Vol] 153 10*3/uL Normal 150-450 [facility] Comment on above: Performed By: #### C BC, BMP #### [facility] [address] [place] [address] [place] RBC (Bld) [#/Vol] 3.21 10*6/uL Low 3.60-5.00 [facility] Comment on above: Performed By: #### C BC, BMP #### [facility] [address] [place] [address] [place] WBC (Bld) [#/Vol] 7.0 10*3/uL Normal 4.5-11.0 [facility] Comment on above: Performed By: #### C BC, BMP #### [address] [place] [address] [place] Electrolyteson 11-03-2021 Chloride [Moles/Vol] 104 mmol/L Normal 95-114 [facility] Comment on above: Performed By: #### C SANTANA, BMP #### [address] CO2 [Moles/Vol] 28.5 mmol/L Normal 22.0-30.0 [facility] Comment on above: Result Comment: PERF ORMED BY: [place] [address] PATHOLOGIST FURNISHINGS CONSERVATOR CLAIRE ANTHONY M.D. Performed By: #### C SANTANA, BMP #### [address] Potassium [Moles/Vol] 4.2 mmol/L Normal 3.5-5.1 [facility] Comment on above: Performed By: #### Salvatore DILLON, BMP #### [address] Sodium [Moles/Vol] 139 mmol/L Normal 136-146 [facility] Comment on above: Performed By: #### Salvatore DILLON, BMP #### [address] Viet 11-02-2021 L -- ---- Specimen: [id number] Received: 11/02/21 Status: GARRETT Alejo Num: [id number] Spec Type: Surgical Subm Dr: Dylan Gatica Jr, DO Tissues: A Gross Only (BONE/TISSUE RT HIP) Procedures: Level 1 Gross ---- Patient Age/Sex Location Account Attending Physician ---- Isabel Waddell 61/F 4N [id number] Dylan Gatica Jr, DO ---- SPEC NUM: [id number] RECD: 11/02/21 STATUS: GARRETT ALEJO NUM: [id number] FRANCISCA: 11/02/21 [facility] DR: Dylan Gatica Jr, ENTERED: 11/02/21 [facility] DR: MARTIN TYPE: Surgical DEPT: S ORDERED: [...] only. (JUAN/DORA) Microscopic Description Gross examination only. [id number] ---- ---- Specimen: [id number] Received: 11/02/21 Status: GARRETT Alejo Num: [id number] Spec Type: Surgical Subm Dr: Dylan Gatica Jr, DO Tissues: A Gross Only (BONE/TISSUE RT HIP) Procedures: Level 1 Gross ---- Patient: Isabel Waddell [id number] (Continued) ---- Signed (signature on file) Claire Anthony MD 11/02/21 1559 [facility] LeukoReduced RBCon LeukoReduced RBC READY [facility] Type and Screenon 11-02-2021 ABO and Rh group Nom (Bld) Blood group O Rh(D) positive [facility] Comment on above: Order Comment: Trans fuse now? N XR low pelvis w/RT x-table h ipon 11-02-2021 XR low pelvis w/RT x-table hip [facility] [place] [address] XRay Report Signed Patient: Isabel Waddell MR#: [id number] : 1960 Acct:[id number] Age/Sex: 61 / F ADM Date: 11/02/21 Loc: Room: [address] [place] [address] Type: [facility] Attending Dr: Dylan Gatica Jr, DO Ordering [...] 11/02/21 144 Signed By: 11/02/21 144 Normal [facility] COVID-19 FRon 10-31-2021 SARS-CoV-2 (COVID-19) RNA ANGELA+probe Ql (Unsp spec) Negative Normal Negative [facility] Comment on above: Order Comment: Healt hcare Worker?: N Result Comment: Testing for SARS-CoV-2 by RT-PCR This test was developed and its performance characteristics determined by [employer] and validated at the [facility]. This test has not been FDA cleared [...] is terminated or revoked sooner. PERFORMED BY: [place] [address] PATHOLOGIST FURNISHINGS CONSERVATOR CLAIRE ANTHONY M.D. Performed By: #### C BC, BMP #### [address] [address] [facility] Basic Metabolic Panelon 11-2 Calcium [Mass/Vol] 9.3 mg/dL Normal 8.2-10.2 [facility] Comment on above: Result Comment: PERF ORMED BY: [address] [address] PATHOLOGIST FURNISHINGS CONSERVATOR CLAIRE ANTHONY M.D. Performed By: #### C SANTANA, BMP #### [address] [address] [facility] Chloride [Moles/Vol] 104 mmol/L Normal 95-114 [facility] Comment on above: Performed By: #### C BC, BMP #### [facility] [address] CO2 [Moles/Vol] 28.3 mmol/L Normal 22.0-30.0 [facility] Comment on above: Performed By: #### C BC, BMP #### [facility] [address] Creatinine [Mass/Vol] 0.61 mg/dL Normal 0.44-1.03 [facility] Comment on above: Performed By: #### C BC, BMP #### [address] Estimated GFR ( [place] > 60 [facility] Comment on above: Result Comment: GFR estimated reference range: According to KDOQI guidelines, <60 ml/min/1.73m2 is sufficient to diagnose a patient with chronic kidney disease. Performed By: #### C BC, BMP #### [address] Estimated GFR (Non- Am > 60 [facility] Comment on above: Performed By: #### C BC, BMP #### [address] Glucose [Mass/Vol] 100 mg/dL Normal 70-100 [facility] Comment on above: Result Comment: [place] Glucose Reference Range is dependent on time and content of last meal. Glucose of more than 200 mg/dL in a nonstressed, ambulatory subject supports the diagnosis of Diabetes Mellitus. ADA recommended reference range Performed By: #### C BC, BMP #### [facility] [address] Potassium [Moles/Vol] 4.7 mmol/L Normal 3.5-5.1 [facility] Comment on above: Performed By: #### C BC, BMP #### [facility] [address] [place] [address] [place] Sodium [Moles/Vol] 140 mmol/L Normal 136-146 [facility] Comment on above: Performed By: #### C BC, BMP #### [facility] [address] Urea nitrogen [Mass/Vol] 17 mg/dL Normal 9-23 [facility] Comment on above: Performed By: #### C BC, BMP #### [facility] [address] Complete Blood Count Auto Di ffon 10-15-2021 Basophils (Bld) [#/Vol] 0.0 10*3/uL Normal 0.0-0.2 [facility] Comment on above: Result Comment: PERF ORMED BY: [place] [address] PATHOLOGIST FURNISHINGS CONSERVATOR CLAIRE ANTHONY M.D. Performed By: #### C BC, BMP #### [address] Basophils/100 WBC (Bld) 0.4 % Normal . [facility] Comment on above: Performed By: #### C BC, BMP #### [facility] [address] Eosinophils (Bld) [#/Vol] 0.1 10*3/uL Normal 0.0-0.45 [facility] Comment on above: Performed By: #### C BC, BMP #### [address] Eosinophils/100 WBC (Bld) 2.1 % Normal . [facility] Comment on above: Performed By: #### C BC, BMP #### [address] Erythrocyte distribution width (RBC) [Ratio] 13.0 % Normal 11.9-15.3 [facility] Comment on above: Performed By: #### C BC, BMP #### [address] Hematocrit (Bld) [Volume fraction] 36.8 % Normal 34.0-46.4 [facility] Comment on above: Performed By: #### C BC, BMP #### [facility] [address] Hemoglobin (Bld) [Mass/Vol] 12.4 g/dL Normal 11.8-15.4 [facility] Comment on above: Performed By: #### C BC, BMP #### [facility] [address] Lymphocytes (Bld) [#/Vol] 0.5 10*3/uL Low 1.00-4.8 [facility] Comment on above: Performed By: #### C BC, BMP #### [facility] [address] Lymphocytes/100 WBC (Bld) 18.8 % Normal . [facility] Comment on above: Performed By: #### C BC, BMP #### [address] MCH (RBC) [Entitic mass] 31.3 pg Normal 24.7-34.3 [facility] Comment on above: Performed By: #### C BC, BMP #### [address] MCV (RBC) [Entitic vol] 92.8 fL Normal 80-100 [facility] Comment on above: Performed By: #### C BC, BMP #### [address] Mean Corpuscular HGB Conc 33.7 g/dL Normal 32.0-35.0 [facility] Comment on above: Performed By: #### C BC, BMP #### [facility] [address] [place] [address] [place] Monocytes (Bld) [#/Vol] 0.3 10*3/uL Normal 0.0-0.8 [facility] Comment on above: Performed By: #### C BC, BMP #### [place] [address] [place] Monocytes/100 WBC (Bld) 10.8 % Normal . [facility] Comment on above: Performed By: #### C BC, BMP #### [facility] [address] [place] [address] [place] Neutrophils (Bld) [#/Vol] 1.9 10*3/uL Normal 1.8-7.7 [facility] Comment on above: Performed By: #### C SANTANA, BMP #### [facility] [address] [place] [id number] [place] Neutrophils/100 WBC (Bld) 67.9 % Normal . [facility] Comment on above: Performed By: #### C SANTANA, BMP #### [facility] [address] [place] [address] [place] Nucleated RBC/100 WBC (Bld) [Ratio] 0.1 % Normal 0-0.5 [facility] Comment on above: Performed By: #### C SANTANA, BMP #### [facility] [address] Platelet mean volume (Bld) [Entitic vol] 7.4 fL Normal 6.3-10.7 [facility] Comment on above: Performed By: #### C SANTANA, BMP #### [facility] [address] [place] [address] [place] Platelets (Bld) [#/Vol] 198 10*3/uL Normal 150-450 [facility] Comment on above: Performed By: #### C SANTANA, BMP #### [facility] [address] [place] [address] [place] RBC (Bld) [#/Vol] 3.97 10*6/uL Normal 3.60-5.00 [facility] Comment on above: Performed By: #### C SANTANA, BMP #### [facility] [address] [place] [address] [place] WBC (Bld) [#/Vol] 2.8 10*3/uL Low 4.5-11.0 [facility] Comment on above: Performed By: #### C SANTANA, BMP #### [facility] [address] [place] [address] [place] Dipstick and Microscopicon 1 12-15-2020 Appearance (U) Turbid Critically abnormal Clear [facility] Comment on above: Order Comment: Name Collection Type:: Clean-Voided Midstream Performed By: #### A DDONUAPLUS #### [facility] [address] [place] [address] [place] Bacteria,Urine None Seen Normal None Seen [facility] Comment on above: Order Comment: Name Collection Type:: Clean-Voided Midstream Performed By: #### A DDONUAPLUS #### [facility] [address] [place] [address] [place] Bilirubin,Urine Negative Normal Negative [facility] Comment on above: Order Comment: Name Collection Type:: Clean-Voided Midstream Performed By: #### A DDONUAPLUS #### [place] [address] [place] Color (U) Yellow Normal Yellow [facility] Comment on above: Order Comment: Name Collection Type:: Clean-Voided Midstream Performed By: #### A DDONUAPLUS #### [place] [address] [place] Glucose Ql (U) Normal Normal Normal [facility] Comment on above: Order Comment: Name Collection Type:: Clean-Voided Midstream Performed By: #### A DDONUAPLUS #### [place] [address] [place] Hyaline Casts,Urine None Seen Normal 0-8 [facility] Comment on above: Order Comment: Name Collection Type:: Clean-Voided Midstream Result Comment: PERF ORMED BY: [place] [address] PATHOLOGIST FURNISHINGS CONSERVATOR CLAIRE ANTHONY M.D. Performed By: #### A DDONUAPLUS #### [facility] [address] [place] [address] [place] Ketones Ql (U) Negative Normal Negative [facility] Comment on above: Order Comment: Name Collection Type:: Clean-Voided Midstream Performed By: #### A DDONUAPLUS #### [facility] [address] [place] [address] [place] Leukocyte esterase Test strip Ql (U) 1+ High Negative [facility] Comment on above: Order Comment: Name Collection Type:: Clean-Voided Midstream Performed By: #### A DDONUAPLUS #### [facility] [address] [place] [address] [place] Nitrite,Urine Negative Normal Negative [facility] Comment on above: Order Comment: Name Collection Type:: Clean-Voided Midstream Performed By: #### A DDONUAPLUS #### [place] [address] [place] Occult Blood,Urine Negative Normal Negative [facility] Comment on above: Order Comment: Name Collection Type:: Clean-Voided Midstream Result Comment: PERF ORMED BY: [place] [address] PATHOLOGIST FURNISHINGS CONSERVATOR CLAIRE ANTHONY M.D. Performed By: #### A DDONUAPLUS #### [address] pH (U) 7.5 [pH] Normal 5.0-9.0 [facility] Comment on above: Order Comment: Name Collection Type:: Clean-Voided Midstream Performed By: #### A DDONUAPLUS #### [facility] [address] [place] [address] [place] Protein,Urine Negative Normal Negative [facility] Comment on above: Order Comment: Name Collection Type:: Clean-Voided Midstream Performed By: #### A DDONUAPLUS #### [place] [address] [place] RBC,Urine 1-2 Normal 0-4 [facility] Comment on above: Order Comment: Name Collection Type:: Clean-Voided Midstream Performed By: #### A DDONUAPLUS #### [facility] [address] [place] [address] [place] Specificy Edmonds,Urine 1.017 Normal 1.001-1.030 [facility] Comment on above: Order Comment: Name Collection Type:: Clean-Voided Midstream Performed By: #### A DDONUAPLUS #### [place] [address] [place] Squamous Epithelial Cell,Urine None Seen Normal 0-2 [facility] Comment on above: Order Comment: Name Collection Type:: Clean-Voided Midstream Performed By: #### A DDONUAPLUS #### [facility] [address] [place] [address] Urobilinogen,Urine Normal Normal Normal [facility] Comment on above: Order Comment: Name Collection Type:: Clean-Voided Midstream Performed By: #### A DDONUAPLUS #### [address] WBC,Urine 3-4 Normal 0-4 [facility] Comment on above: Order Comment: Name Collection Type:: Clean-Voided Midstream Performed By: #### A DDONUAPLUS #### [address] PST Type and Screenon 2020 ABO and Rh group Nom (Bld) Blood group O Rh(D) positive Normal [facility] Comment on above: Order Comment: Date of Surgery: 20211102 # of PRBC units on hold?: 2 Result Comment: PERF ORMED BY: [place] [address] PATHOLOGIST FURNISHINGS CONSERVATOR CLAIRE ANTHONY M.D. XR hip RT min 2V(w/wo pelvis )*on 10-15-2021 XR hip RT min 2V(w/wo pelvis)* [facility] [address] [place] [address] [place] [address] XRay Report Signed Patient: Isabel Waddell MR#: [id number] : 1960 Acct:[id number] Age/Sex: 61 / F ADM Date: 10/15/21 Loc: Room: Type: [facility] Attending Dr: Dylan Gatica Jr, DO Ordering [...] Yusef Fernandez M.D.10/15/2021 2:21 PM Dictation Location: [place] [address] Transcribed By: [facility] 10/15/21 142 Dictated By: Yusef Fernandez DO 10/15/21 142 Signed By: 10/15/21 142 Normal [facility] XR tibia/fibula BIon 021 XR tibia/fibula BI [facility] [place] [address] XRay Report Signed Patient: Isabel Waddell MR#: [id number] : 1960 Acct:[id number] Age/Sex: 61 / F ADM Date: 08/22/21 Loc: [facility] Room: Type: [facility] Attending Dr: Dylan Gatica Jr, DO Ordering Provider: Dylan Gatica Jr, DO Date of Service: 08/22/21 XR/XR femur BI: PST ([id number]) XR/XR tibia/fibula BI: PST Copies to: Dylan [...] Mckayla Rai M.D.08/22/2021 3:17 PM Dictation Location: [facility] Transcribed By: [facility] 08/22/211516 Dictated By: Mckayla Rai MD 08/22/211512 Signed By: 08/22/211516 [facility] Basic Metabolic Panelon 10-0 Calcium [Mass/Vol] 9.1 mg/dL Normal 8.2-10.2 [facility] Comment on above: Result Comment: PERF ORMED BY: [place] [address] PATHOLOGIST FURNISHINGS CONSERVATOR CLAIRE ANTHONY M.D. Performed By: #### C BC, BMP #### [address] Chloride [Moles/Vol] 102 mmol/L Normal 95-114 [facility] Comment on above: Performed By: #### C BC, BMP #### [place] [address] [place] CO2 [Moles/Vol] 27.8 mmol/L Normal 22.0-30.0 [facility] Comment on above: Performed By: #### C BC, BMP #### [address] Creatinine [Mass/Vol] 0.63 mg/dL Normal 0.44-1.03 [facility] Comment on above: Performed By: #### C BC, BMP #### [place] [address] [place] Estimated GFR ( Damon > 60 [facility] Comment on above: Result Comment: GFR estimated reference range: According to KDOQI guidelines, <60 ml/min/1.73m2 is sufficient to diagnose a patient with chronic kidney disease. Performed By: #### C BC, BMP #### [place] [address] [place] Estimated GFR (Non- Am > 60 [facility] Comment on above: Performed By: #### C BC, BMP #### [place] [address] [place] Glucose [Mass/Vol] 101 mg/dL High 70-100 [facility] Comment on above: Result Comment: [facility] Glucose Reference Range is dependent on time and content of last meal. Glucose of more than 200 mg/dL in a nonstressed, ambulatory subject supports the diagnosis of Diabetes Mellitus. ADA recommended reference range Performed By: #### C BC, BMP #### [facility] [address] Potassium [Moles/Vol] 4.2 mmol/L Normal 3.5-5.1 [facility] Comment on above: Performed By: #### C BC, BMP #### [facility] [address] Sodium [Moles/Vol] 138 mmol/L Normal 136-146 [facility] Comment on above: Performed By: #### C BC, BMP #### [facility] [address] Urea nitrogen [Mass/Vol] 18 mg/dL Normal 9-23 [facility] Comment on above: Performed By: #### C BC, BMP #### [address] Complete Blood Count Auto Di ffon 08-20-2021 Basophils (Bld) [#/Vol] 0.0 10*3/uL Normal 0.0-0.2 [facility] Comment on above: Result Comment: PERF ORMED BY: [place] [address] PATHOLOGIST FURNISHINGS CONSERVATOR CLAIRE ANTHONY M.D. Performed By: #### C BC, BMP #### [place] [address] [place] Basophils/100 WBC (Bld) 0.1 % Normal . [facility] Comment on above: Performed By: #### C BC, BMP #### [facility] [address] Eosinophils (Bld) [#/Vol] 0.1 10*3/uL Normal 0.0-0.45 [facility] Comment on above: Performed By: #### C BC, BMP #### [address] Eosinophils/100 WBC (Bld) 2.5 % Normal . [facility] Comment on above: Performed By: #### C BC, BMP #### [facility] [address] Erythrocyte distribution width (RBC) [Ratio] 13.6 % Normal 11.9-15.3 [facility] Comment on above: Performed By: #### C BC, BMP #### [address] Hematocrit (Bld) [Volume fraction] 34.5 % Normal 34.0-46.4 [facility] Comment on above: Performed By: #### C BC, BMP #### [address] Hemoglobin (Bld) [Mass/Vol] 11.9 g/dL Normal 11.8-15.4 [facility] Comment on above: Performed By: #### C BC, BMP #### [address] Lymphocytes (Bld) [#/Vol] 0.6 10*3/uL Low 1.00-4.8 [facility] Comment on above: Performed By: #### C BC, BMP #### [address] Lymphocytes/100 WBC (Bld) 15.9 % Normal . [facility] Comment on above: Performed By: #### C BC, BMP #### [address] MCH (RBC) [Entitic mass] 31.3 pg Normal 24.7-34.3 [facility] Comment on above: Performed By: #### C BC, BMP #### [address] MCV (RBC) [Entitic vol] 90.5 fL Normal 80-100 [facility] Comment on above: Performed By: #### C BC, BMP #### [address] Mean Corpuscular HGB Conc 34.6 g/dL Normal 32.0-35.0 [facility] Comment on above: Performed By: #### C BC, BMP #### [place] [address] [place] Monocytes (Bld) [#/Vol] 0.5 10*3/uL Normal 0.0-0.8 [facility] Comment on above: Performed By: #### C BC, BMP #### [place] [address] [place] Monocytes/100 WBC (Bld) 13.2 % Normal . [facility] Comment on above: Performed By: #### C SANTANA, BMP #### [place] [address] [place] Neutrophils (Bld) [#/Vol] 2.7 10*3/uL Normal 1.8-7.7 [facility] Comment on above: Performed By: #### C SANTANA, BMP #### [place] [address] [place] Neutrophils/100 WBC (Bld) 68.3 % Normal . [facility] Comment on above: Performed By: #### C SANTANA, BMP #### [place] [address] [place] Nucleated RBC/100 WBC (Bld) [Ratio] 0.1 % Normal 0-0.5 [facility] Comment on above: Performed By: #### C BC, BMP #### [place] [address] [place] Platelet mean volume (Bld) [Entitic vol] 7.8 fL Normal 6.3-10.7 [facility] Comment on above: Performed By: #### C BC, BMP #### [place] [id number] [place] Platelets (Bld) [#/Vol] 182 10*3/uL Normal 150-450 [facility] Comment on above: Performed By: #### C BC, BMP #### [place] [id number] [place] RBC (Bld) [#/Vol] 3.81 10*6/uL Normal 3.60-5.00 [facility] Comment on above: Performed By: #### C BC, BMP #### [address] WBC (Bld) [#/Vol] 4.0 10*3/uL Low 4.5-11.0 [facility] Comment on above: Performed By: #### C BC, BMP #### [address] Dipstick and Microscopicon 1 Appearance (U) Turbid Critically abnormal Clear [facility] Comment on above: Order Comment: Comme nt urine C S if indicated by UA Name Collection Type:: Clean-Voided Midstream Performed By: #### A DDONUAPLUS #### [address] Bacteria,Urine None Seen Normal None Seen [facility] Comment on above: Order Comment: Comme nt urine C S if indicated by UA Name Collection Type:: Clean-Voided Midstream Performed By: #### A DDONUAPLUS #### [address] Bilirubin,Urine Negative Normal Negative [facility] Comment on above: Order Comment: Comme nt urine C S if indicated by UA Name Collection Type:: Clean-Voided Midstream Performed By: #### A DDONUAPLUS #### [address] Color (U) Yellow Normal Yellow [facility] Comment on above: Order Comment: Comme nt urine C S if indicated by UA Name Collection Type:: Clean-Voided Midstream Performed By: #### A DDONUAPLUS #### [address] Glucose Ql (U) Normal Normal Normal [facility] Comment on above: Order Comment: Comme nt urine C S if indicated by UA Name Collection Type:: Clean-Voided Midstream Performed By: #### A DDONUAPLUS #### [address] Hyaline Casts,Urine 0-8 Normal 0-8 [facility] Comment on above: Order Comment: Comme nt urine C S if indicated by UA Name Collection Type:: Clean-Voided Midstream Result Comment: PERF ORMED BY: [place] [address] PATHOLOGIST FURNISHINGS CONSERVATOR CLAIRE ANTHONY M.D. Performed By: #### A DDONUAPLUS #### [address] Ketones Ql (U) Negative Normal Negative [facility] Comment on above: Order Comment: Comme nt urine C S if indicated by UA Name Collection Type:: Clean-Voided Midstream Performed By: #### A DDONUAPLUS #### [address] Leukocyte esterase Test strip Ql (U) 3+ High Negative [facility] Comment on above: Order Comment: Comme nt urine C S if indicated by UA Name Collection Type:: Clean-Voided Midstream Performed By: #### A DDONUAPLUS #### [address] Nitrite,Urine Negative Normal Negative [facility] Comment on above: Order Comment: Comme nt urine C S if indicated by UA Name Collection Type:: Clean-Voided Midstream Performed By: #### A DDONUAPLUS #### [address] Occult Blood,Urine Negative Normal Negative [facility] Comment on above: Order Comment: Comme nt urine C S if indicated by UA Name Collection Type:: Clean-Voided Midstream Result Comment: PERF ORMED BY: [place] [address] PATHOLOGIST FURNISHINGS CONSERVATOR CLAIRE ANTHONY M.D. Performed By: #### A DDONUAPLUS #### [facility] [address] [place] [address] pH (U) 8.5 [pH] Normal 5.0-9.0 [facility] Comment on above: Order Comment: Comme nt urine C S if indicated by UA Name Collection Type:: Clean-Voided Midstream Performed By: #### A DDONUAPLUS #### [facility] [address] [place] [address] Protein,Urine Negative Normal Negative [facility] Comment on above: Order Comment: Comme nt urine C S if indicated by UA Name Collection Type:: Clean-Voided Midstream Performed By: #### A DDONUAPLUS #### [facility] [address] [place] [address] RBC,Urine 3-4 Normal 0-4 [facility] Comment on above: Order Comment: Comme nt urine C S if indicated by UA Name Collection Type:: Clean-Voided Midstream Performed By: #### A DDONUAPLUS #### [facility] [address] [place] [address] Specificy Edmonds,Urine 1.016 Normal 1.001-1.030 [facility] Comment on above: Order Comment: Comme nt urine C S if indicated by UA Name Collection Type:: Clean-Voided Midstream Performed By: #### A DDONUAPLUS #### [facility] [address] [place] [address] Squamous Epithelial Cell,Urine 0-1 Normal 0-2 [facility] Comment on above: Order Comment: Comme nt urine C S if indicated by UA Name Collection Type:: Clean-Voided Midstream Performed By: #### A DDONUAPLUS #### [facility] [address] [place] [address] Urobilinogen,Urine Normal Normal Normal [facility] Comment on above: Order Comment: Comme nt urine C S if indicated by UA Name Collection Type:: Clean-Voided Midstream Performed By: #### A DDONUAPLUS #### [facility] [address] [place] [address] WBC,Urine 20-49 High 0-4 [facility] Comment on above: Order Comment: Comme nt urine C S if indicated by UA Name Collection Type:: Clean-Voided Midstream Performed By: #### A DDONUAPLUS #### [place] [address] [place] ECG 12 lead ECGon 08-20-2021 ECG 12 lead ECG [facility] [address] [place] [address] [place] [address] Electrocardiograph Report Signed Patient: Isabel Waddell MR#: [id number] : 1960 Acct:[id number] Age/Sex: 61 / F ADM Date: 08/20/21 Loc: PS Room: Type: [facility] Attending Dr: Dylan Gatica Jr, DO Ordering [...] When compared with ECG of 06-SEP-2020 08:27, MI interval has decreased T wave amplitude has increased in Inferior leads Confirmed by YUSEF GIRALDO DO ([id number]) on 08/20/2021 4:50:03 PM Referred By: LAURA Electronically Signed By:YUSEF GIRALDO DO Transcribed By: MUS Signed By Yusef Giraldo DO 08/20 1650 [facility] PST Type and Screenon 2020 ABO and Rh group Nom (Bld) Blood group O Rh(D) positive [facility] Comment on above: Order Comment: Date of Surgery: 20210906 # of PRBC units on hold?: 2 Result Comment: PERF ORMED BY: [place] [address] PATHOLOGIST FURNISHINGS CONSERVATOR CLAIRE ANTHONY M.D. Urine Cultureon 08-20-2021 Bacteria identified Cx Nom (U) Comment do C S if indicated by UA ORGANISM: Staphylococcus aureus (O:STAAUR) Pierce Count 30,000 Aerobic MARELY Charge (PC45) --- [...] RESISTANT TO ALL B-LACTAM DRUGS. PERFORMED BY: [place] [address] PATHOLOGIST FURNISHINGS CONSERVATOR CLAIRE ANTHONY M.D. [facility] Comment on above: Performed By: #### C UU #### [address] Cult,Urineon 07-08-2021 Cult,Urine Specimen Description .URINE Special Requests NOT REPORTED Culture NO SIGNIFICANT GROWTH Report Status FINAL 07/08/2021 [facility] Comment on above: Performed By: #### U RC #### [facility] [address] [place] [address] Emergency Worker: Rei Jules MD [facility] [address] [place] [address] Emergency Worker: Jacob Campos MD CBC Auto DifferentialOrdered By: Mayra Michel on 07-07-2021 [facility] # 0.70 High [facility] Work Phone: [facility] Immature Granulocyte NOT REPORTED [employer] Work Phone: [facility] Lymph # 0.40 Low [facility] Work Phone: Absolute Pondera # 0.50 [facility] Work Phone: Basophils (Bld) [#/Vol] 0.00 10*3/uL [employer] Work Phone: Basophils/100 WBC (Bld) 1 % 0 - 2 % [employer] Work Phone: Differential Type YES [facility] Work Phone: Eosinophils/100 WBC (Bld) 14 % High 0 - 5 % [employer] Work Phone: Hematocrit (Bld) [Volume fraction] 40.1 % 36 - 46 % [employer] Work Phone: Hemoglobin.gastrointes tinal spec 1 Ql (Stl) 13.8 g/dL 12.0 - 16.0 g/dL [employer] Phone: Immature Granulocytes NOT REPORTED 0 % M [employer] Work Phone: Interpretation and review of laboratory results Abnormal [employer] Phone: Lymphocytes/100 WBC (Bld) 8 % Low 15 - 40 % [employer] Work Phone: MCH (RBC) [Entitic mass] 30.7 pg 26 - 34 pg [employer] Work Phone: MCHC (RBC) [Mass/Vol] 34.5 g/dL 31 - 37 g/dL M [employer] Work Phone: MCV (RBC) [Entitic vol] 89.1 fL 80 - 100 fL [employer] Work Phone: Monocytes/100 WBC (Bld) 10 % High 4 - 8 % [employer] Work Phone: NRBC Automated NOT REPORTED per 100 WBC [facility] Work Phone: Platelet distribution width (Bld) [Ratio] 13.0 % 12.1 - 15.2 % [employer] Phone: Platelet Estimate NOT REPORTED [employer] Phone: Platelet mean volume (Bld) [Entitic vol] NOT REPORTED 6.0 - 12.0 fL [employer] Phone: Platelets (Bld) [#/Vol] 157 10*3/uL [employer] Phone: RBC (Bld) [#/Vol] 4.50 10*6/uL 4.0 - 5.2 m/uL [employer] Phone: RBC (Bld) [#/Vol] NOT REPORTED [employer] Phone: Segmented neutrophils/100 WBC (Bld) 67 % 47 - 75 % [employer] Phone: Segs Absolute 3.40 [employer] Work Phone: WBC (Bld) [#/Vol] 5.1 10*3/uL [employer] Phone: WBC (Bld) [#/Vol] NOT REPORTED [employer] Phone: [employer] Phone: CBC with Diffon 07-07-2021 Abs. Basophil 0.00 k/uL Normal 0.0-0.2 [facility] Comment on above: Performed By: #### C MIAN, CP #### [facility] [address] [place] [address] Emergency Worker: Jacob Campos MD Abs.Neutrophil (Seg) 3.40 k/uL Normal 2.5-7.0 [facility] Comment on above: Performed By: #### C MIAN, CP #### [facility] [address] [place] [address] Emergency Worker: Jacob Campos MD Auto Diff Performed YES Normal [facility] Comment on above: Performed By: #### C DP, CP #### [facility] [address] [place] [address] Emergency Worker: Jacob Campos MD Basophils/100 WBC (Bld) 1 % Normal 0-2 [facility] Comment on above: Performed By: #### C DP, CP #### [facility] [address] [place], [place] [id number] Emergency Worker: Jacob Campos MD Eosinophils (Bld) [#/Vol] 0.70 10*3/uL High 0.0-0.4 [facility] Comment on above: Performed By: #### C DP, CP #### [facility] [address] [place] [id number] Emergency Worker: Jacob Campos MD Eosinophils/100 WBC (Bld) 14 % High 0-5 [facility] Comment on above: Performed By: #### C DP, CP #### [facility] [address] [place] [address] Emergency Worker: Jacob Campos MD Erythrocyte distribution width (RBC) [Ratio] 13.0 % Normal 12.1-15.2 [facility] Comment on above: Performed By: #### C DP, CP #### [facility] [address] [place] [address] Emergency Worker: Jacob Campos MD Hematocrit (Bld) [Volume fraction] 40.1 % Normal 36-46 [facility] Comment on above: Performed By: #### C DP, CP #### [facility] [address] [place] [address] Emergency Worker: Jacob Campos MD Hemoglobin (Bld) [Mass/Vol] 13.8 g/dL Normal 12.0-16.0 [facility] Comment on above: Performed By: #### C DP, CP #### [facility] [address] [place] [address] Emergency Worker: Jacob Campos MD Lymphocytes (Bld) [#/Vol] 0.40 10*3/uL Low 1.0-4.8 [facility] Comment on above: Performed By: #### C DP, CP #### [facility] [address] [place] [address] Emergency Worker: Jacob Campos MD Lymphocytes/100 WBC (Bld) 8 % Low 15-40 [facility] Comment on above: Performed By: #### C DP, CP #### [facility] [address] [place] [id number] Emergency Worker: Jacob Campos MD MCH (RBC) [Entitic mass] 30.7 pg Normal 26-34 [facility] Comment on above: Performed By: #### C DP, CP #### [facility] [address] [place] [address] Emergency Worker: Jacob Campos MD MCHC (RBC) [Mass/Vol] 34.5 g/dL Normal 31-37 [facility] Comment on above: Performed By: #### C DP, CP #### [facility] [address] [place] [id number] Emergency Worker: Jacob Campos MD MCV (RBC) [Entitic vol] 89.1 fL Normal 80-100 [facility] Comment on above: Performed By: #### C DP, CP #### [facility] [address] [place] [address] Emergency Worker: Jacob Campos MD Monocytes (Bld) [#/Vol] 0.50 10*3/uL Normal 0.0-1.0 [facility] Comment on above: Performed By: #### C DP, CP #### [facility] [address] [place] [address] Emergency Worker: Jacob Campos MD Monocytes/100 WBC (Bld) 10 % High 4-8 [facility] Comment on above: Performed By: #### C DP, CP #### [facility] [address] [place] [address] Emergency Worker: Jacob Campos MD Neutrophil (Seg) 67 % Normal 47-75 [facility] Comment on above: Performed By: #### C DP, CP #### [facility] [address] [place] [address] Emergency Worker: Jacob Campos MD Platelets (Bld) [#/Vol] 157 10*3/uL Normal 140-450 [facility] Comment on above: Performed By: #### C DP, CP #### [facility] [address] [place] [address] Emergency Worker: Jacob Campos MD RBC (Bld) [#/Vol] 4.50 10*6/uL Normal 4.0-5.2 [facility] Comment on above: Performed By: #### C DP, CP #### [facility] [address] [place] [address] Emergency Worker: Jacob Campos MD WBC (Bld) [#/Vol] 5.1 10*3/uL Normal 3.5-11.0 [facility] Comment on above: Performed By: #### C DP, CP #### [facility] [address] [place] [address] Emergency Worker: Jacob Campos MD Abs.Imm.Granulocyte NOT REPORTED Normal 0.00-0.30 [facility] Comment on above: Performed By: #### C DP, CP #### [facility] [address] [place] [address] Emergency Worker: Jacob Campos MD Immature Granulocyte NOT REPORTED Normal 0 Me [facility] Comment on above: Performed By: #### C DP, CP #### [facility] [address] [place], [place] [phone] Emergency Worker: Jacob Campos MD MPV NOT REPORTED Normal 6.0-12.0 [facility] Comment on above: Performed By: #### C DP, CP #### [facility] [address] [place], [place] [phone] Emergency Worker: Jacob Campos MD NRBC Automated NOT REPORTED Normal [facility] Comment on above: Performed By: #### C DP, CP #### [facility] [address] [place] [address] Emergency Worker: Jacob Campos MD Platelet Estimate NOT REPORTED Normal [facility] Comment on above: Performed By: #### C DP, CP #### [facility] [address] [place], [place] [id number] Emergency Worker: Jacob Campos MD RBC morphology finding Nom (Bld) NOT REPORTED Normal [facility] Comment on above: Performed By: #### C DP, CP #### [facility] [address] [place] [address] Emergency Worker: Jacob Campos MD WBC Morphology NOT REPORTED Normal [facility] Comment on above: Performed By: #### C DP, CP #### [facility] [address] [place], [place] [id number] Emergency Worker: Jacob Campos MD Comp Metabolic Profon 2020 (cont.) Normal [facility] Comment on above: Result Comment: Aver age GFR for 60-69 years old: 85 mL/min/1.73sq m Chronic Kidney Disease: <60 mL/min/1.73sq m Kidney failure: <15 mL/min/1.73sq m eGFR calculated using average adult body mass. Additional eGFR calculator available at: http://www.globalrp.Babyoye/multiple_crcl_2012.htm Performed By: #### C DP, CP #### [facility] [address] [place], [place] [id number] Emergency Worker: Jacob Campos MD Albumin [Mass/Vol] 3.9 g/dL Normal 3.5-5.2 [facility] Comment on above: Performed By: #### C DP, CP #### [facility] [address] [place], [place] [id number] Emergency Worker: Jacob Campos MD Alkaline Phos 94 U/L Normal 35-104 [facility] Comment on above: Performed By: #### C DP, CP #### [facility] [address] [place], [place] [id number] Emergency Worker: Jacob Campos MD ALT [Catalytic activity/Vol] 31 U/L Normal 5-33 [facility] Comment on above: Performed By: #### C DP, CP #### [facility] [address] [place], [place] [phone] Emergency Worker: Jacob Campos MD Anion gap [Moles/Vol] 10 mmol/L Normal 9-17 [facility] Comment on above: Performed By: #### C DP, CP #### [facility] [address] [place], [place] [phone] Emergency Worker: Jcaob Campos MD AST [Catalytic activity/Vol] 28 U/L Normal <32 [facility] Comment on above: Performed By: #### C DP, CP #### [facility] [address] [place], [place] [phone] Emergency Worker: Jacob Campos MD Bilirubin [Mass/Vol] 0.46 mg/dL Normal 0.30-1.20 [facility] Comment on above: Performed By: #### C DP, CP #### [facility] [address] [place] [address] Emergency Worker: Jacob Campos MD BUN/CRE Ratio 27 High 9-20 [facility] Comment on above: Performed By: #### C DP, CP #### [facility] [address] [place], [place] [phone] Emergency Worker: Jacob Campos MD Calcium [Mass/Vol] 9.7 mg/dL Normal 8.6-10.4 [facility] Comment on above: Performed By: #### C DP, CP #### [facility] [address] [place] [address] Emergency Worker: Jacob Campos MD Chloride [Moles/Vol] 107 mmol/L Normal 98-107 [facility] Comment on above: Performed By: #### C DP, CP #### [facility] [address] [place] [address] Emergency Worker: Jacob Campos MD CO2 [Moles/Vol] 25 mmol/L Normal 20-31 [facility] Comment on above: Performed By: #### C DP, CP #### [facility] [address] [place] [address] Emergency Worker: Jacob Campos MD Creatinine [Mass/Vol] 0.60 mg/dL Normal 0.50-0.90 [facility] Comment on above: Performed By: #### C DP, CP #### [facility] [address] [place] [address] Emergency Worker: Jacob Campos MD GFR, Amer >60 Normal >60 [facility] Comment on above: Performed By: #### C DP, CP #### [facility] [address] [place] [address] Emergency Worker: Jacob Campos MD GFR,non Amer >60 Normal >60 [facility] Comment on above: Performed By: #### C DP, CP #### [facility] [address] [place], [place] [phone] Emergency Worker: Jacob Campos MD Glucose [Mass/Vol] 122 mg/dL High 70-99 [facility] Comment on above: Performed By: #### C DP, CP #### [facility] [address] [place] [address] Emergency Worker: Jacob Campos MD Potassium [Moles/Vol] 3.8 mmol/L Normal 3.7-5.3 [facility] Comment on above: Performed By: #### C DP, CP #### [facility] [address] [place], [place] [phone] Emergency Worker: Jacob Campos MD Protein [Mass/Vol] 6.9 g/dL Normal 6.4-8.3 [facility] Comment on above: Performed By: #### C DP, CP #### [facility] [address] [place] [address] Emergency Worker: Jacob Campos MD Sodium [Moles/Vol] 142 mmol/L Normal 135-144 [facility] Comment on above: Performed By: #### C DP, CP #### [facility] [address] [place] [address] Emergency Worker: Jacob Campos MD Urea nitrogen [Mass/Vol] 16 mg/dL Normal 8-23 [facility] Comment on above: Performed By: #### C DP, CP #### [facility] [address] [place] [address] Emergency Worker: Jacob Campos MD Albumin/Glob Ratio NOT REPORTED Normal 1.0-2.5 [facility] Comment on above: Performed By: #### C DP, CP #### [facility] [address] [place], [place] [phone] Emergency Worker: Jacob Campos MD Staging: NOT REPORTED Normal [facility] Comment on above: Performed By: #### C DP, CP #### [facility] [address] [place] [address] Emergency Worker: Jacob Campos MD Comprehensive Metabolic Pane lOrdered By: Mayra Michel on 07-07-2021 Albumin [Mass/Vol] 3.9 g/dL 3.5 - 5.2 g/dL [employer] Phone: Albumin/Globulin Ratio NOT REPORTED [employer] Phone: ALP (Bld) [Catalytic activity/Vol] 94 U/L 35 - 104 U/L [employer] Phone: ALT [Catalytic activity/Vol] 31 U/L 5 - 33 U/L [employer] Phone: Anion gap [Moles/Vol] 10 mmol/L 9 - 17 mmol/L [employer] Phone: AST [Catalytic activity/Vol] 28 U/L <32 [employer] Phone: Bilirubin [Mass/Vol] 0.46 mg/dL 0.30 - 1.20 mg/dL [employer] Phone: Calcium [Mass/Vol] 9.7 mg/dL 8.6 - 10. 4 mg/dL [employer] Phone: Chloride [Moles/Vol] 107 mmol/L 98 - 10 7 mmol/L [employer] Phone: CO2 [Moles/Vol] 25 mmol/L 20 - 31 mmol/L [employer] Phone: Creatinine [Mass/Vol] 0.6 mg/dL 0.50 - 0.90 mg/dL [employer] Phone: Free PSA/Total PSA [Mass fraction] 6.9 g/dL 6.4 - 8.3 g/dL [employer] Phone: GFR >60 >60 mL/min [employer] Phone: GFR Non- >60 >60 mL/min [employer] Phone: GFR/1.73 sq M.predicted MDRD (S/P/Bld) [Vol rate/Area] [employer] Phone: Comment on above: Average GFR for 60-6 9 years old: 85 mL/min/1.73sq m Chronic Kidney Disease: <60 mL/min/1.73sq m Kidney failure: <15 mL/min/1.73sq m eGFR calculated using average adult body mass. Additional eGFR calculator available at: http://www.Booktrope/multiple_crcl_2012.htm GFR/1.73 sq M.predicted MDRD (S/P/Bld) [Vol rate/Area] NOT REPORTED [employer] Phone: Glucose [Mass/Vol] 122 mg/dL High 70 - 99 mg/dL [employer] Phone: Interpretation and review of laboratory results Abnormal [employer] Phone: Potassium [Moles/Vol] 3.8 mmol/L 3.7 - 5.3 mmol/L [employer] Phone: Sodium [Moles/Vol] 142 mmol/L 135 - 144 mmol/L [employer] Phone: Urea nitrogen (BldV) [Mass/Vol] 16 mg/dL 8 - 23 mg/dL [employer] Phone: Urea nitrogen/Creatinine (Bld) [Mass ratio] 27 High [employer] Phone: [employer] Phone: Microscopic UrinalysisOrdere d By: Mayra Michel on 07-07-2021 - [employer] Phone: Amorphous, UA NOT REPORTED None [facility] Work Phone: Bacteria, UA 2+ Abnormal None [employer] Phone: Casts UA NOT REPORTED /LPF [facility] Work Phone: Crystals, UA NOT REPORTED None /HPF [facility] Work Phone: Epithelial Cells UA 5 TO 10 /HPF [facility] Work Phone: Interpretation and review of laboratory results Abnormal [facility] Work Phone: Mucus, UA 1+ Abnormal None [facility] Work Phone: Other Observations UA NOT REPORTED NOT REQ. M [facility] Work Phone: RBC, UA 5 TO 10 [facility] Work Phone: Renal Epithelial, UA NOT REPORTED 0 /HPF [facility] Work Phone: Trichomonas, UA NOT REPORTED None [facility] e[facility] Work Phone: WBC, UA 2 TO 5 0 /HPF [facility] Work Phone: Yeast, UA NOT REPORTED None [facility] Work Phone: [facility] Work Phone: UrinalysisOrdered By: Olamide Michel on 07-07-2021 Bilirubin Urine Negative NEGATIVE [facility] Work Phone: Color, UA YELLOW YELLOW [facility] [employer] Work Phone: Glucose, Ur Negative NEGATIVE [facility] Work Phone: Interpretation and review of laboratory results Abnormal [facility] Work Phone: Ketones Ql (U) Negative NEGATIVE [facility] Work Phone: Leukocyte esterase Test strip Ql (U) 1+ Abnormal NEGATIVE [facility] Work Phone: Nitrite, Urine Negative NEGATIVE [facility] Work Phone: pH, UA 6.0 [facility] [employer] Work Phone: Protein, UA TRACE Abnormal NEGATIVE [facility] Work Phone: Specific [place], UA 1.020 [facility] [employer] Phone: Turbidity UA CLEAR CLEAR [facility] Phone: Urinalysis Comments [facility] [employer] Phone: Urine Hgb TRACE Abnormal NEGATIVE [facility] [employer] Phone: Urobilinogen, Urine Normal Normal [facility] [employer] Phone: [facility] Phone: Urinalysis, Routineon 2020 Bilirubin, SemiQt,Ur Negative Normal NEG [facility] Comment on above: Performed By: #### U MICAO, UA #### [facility] [address] [place], [place] [phone] Emergency Worker: Jacob Campos MD Blood, Urine TRACE Abnormal NEG [facility] Comment on above: Performed By: #### U MICAO, UA #### [facility] [address] [place], [place] [phone] Emergency Worker: Jacob Campos MD Clarity (U) CLEAR Normal CLEAR [facility] Comment on above: Performed By: #### U MICAO, UA #### [facility] [address] [place], [place] [phone] Emergency Worker: Jacob Campos MD Color (U) YELLOW Normal YEL [facility] Comment on above: Performed By: #### U MICAO, UA #### [facility] [address] [place], [place] [phone] Emergency Worker: Jacob Campos MD Comment Normal [facility] Comment on above: Performed By: #### U MICAO, UA #### [facility] [address] [place] [address] Emergency Worker: Jacob Campos MD Glucose Ql (U) Negative Normal NEG [facility] Comment on above: Performed By: #### U EULALIAO, UA #### [facility] [address] [place], [place] [phone] Emergency Worker: Jacob Campos MD Ketones Ql (U) Negative Normal NEG [facility] Comment on above: Performed By: #### U MICAO, UA #### [facility] [address] [place], [place] [phone] Emergency Worker: Jacob Campos MD Leukocyte esterase Test strip Ql (U) 1+ Abnormal NEG [facility] Comment on above: Performed By: #### U EULALIAO, UA #### [facility] [address] [place], [place] [phone] Emergency Worker: Jacob Campos MD Nitrite,Ur Negative Normal NEG [facility] Comment on above: Performed By: #### U EULALIAO, UA #### [facility] [address] [place], [place] [phone] Emergency Worker: Jacob Campos MD PH,Ur 6.0 Normal 5.0-8.0 [facility] Comment on above: Performed By: #### U EULALIAO, UA #### [facility] [address] [place], [place] [phone] Emergency Worker: Jacob Campos MD Protein Ql (U) TRACE Abnormal NEG [facility] Comment on above: Performed By: #### U MICAO, UA #### [facility] [address] [place], [place] [phone] Emergency Worker: Jacob Campos MD Spec. Edmonds,Ur 1.020 Normal 1.005-1.030 [facility] Comment on above: Performed By: #### U MICAO, UA #### [facility] [address] [place], [place] [phone] Emergency Worker: Jacob Campos MD Urobilinogen,Ur Normal Normal NORM [facility] Comment on above: Performed By: #### U RICH UA #### [facility] [address] [place] [phone] Emergency Worker: Jacob Campos MD Urinalysis,Microon 1 ----- Normal [facility] Comment on above: Performed By: #### U RICH UA #### [facility] [address] [place] [phone] Emergency Worker: Jacob Campos MD Bacteria 2+ Abnormal NONE [facility] Comment on above: Performed By: #### U RICH UA #### [facility] [address] [place] [address] Emergency Worker: Jacob Campos MD Epithelial cells LM Ql (Urine sed) 5 TO 10 Normal [facility] Comment on above: Performed By: #### U RICH UA #### [facility] [address] [place] [phone] Emergency Worker: Jacob Campos MD Mucus Strands 1+ Abnormal [facility] Comment on above: Performed By: #### U RICH UA #### [facility] [address] [place] [phone] Emergency Worker: Jacob Campos MD Urine RBC's 5 TO 10 Normal 0-2 [facility] Comment on above: Performed By: #### U RICH, UA #### [facility] [address] [place] [phone] Emergency Worker: Jacob Campos MD Urine WBC's 2 TO 5 Normal 0 [facility] Comment on above: Performed By: #### U RICH, UA #### [facility] [address] [place], [place] [phone] Emergency Worker: Jacob Campos MD Amorphous sediment LM Ql (Urine sed) NOT REPORTED Normal [facility] Comment on above: Performed By: #### U RICH UA #### [facility] [address] [place], [place] [phone] Emergency Worker: Jacob Campos MD Casts NOT REPORTED Normal [facility] Comment on above: Performed By: #### U MICAO, UA #### [facility] [address] [place], [place] [phone] Emergency Worker: Jacob Campos MD Crystals LM Nom (Urine sed) NOT REPORTED Normal NONE [facility] Comment on above: Performed By: #### U MICAO, UA #### [facility] [address] [place] [address] Emergency Worker: Jacob Campos MD Epithelial, Renal NOT REPORTED Normal 0 [facility] Comment on above: Performed By: #### U MICAO, UA #### [facility] [address] [place] [address] Emergency Worker: Jacob Campos MD Other Observations NOT REPORTED Normal NREQ [facility] Comment on above: Performed By: #### U MICAO, UA #### [facility] [address] [place] [address] Emergency Worker: Jacob Campos MD Trichomonas NOT REPORTED Normal NONE [facility] Comment on above: Performed By: #### U MICAO, UA #### [facility] [address] [place], [place] [phone] Emergency Worker: Jacob Campos MD Yeast NOT REPORTED Normal NONE [facility] Comment on above: Performed By: #### U MICAO, UA #### [facility] [address] [place] [address] Emergency Worker: Jacob Campos MD XR hand RT min 3V*on 021 XR hand RT min 3V* [facility] [address] [address] XRay Report Signed Patient: Isabel Waddell MR#: [id number] : 1960 Acct:[id number] Age/Sex: 60 / F ADM Date: 03/28/21 Loc: [facility] Room: Type: [facility] Attending Dr: Sona Hurst MD Ordering Provider: [...] Mckayla Rai M.D.03/28/2021 1:26 PM Dictation Location: [place] [address] Transcribed By: [facility] 03/28/21 1326 Dictated By: Mckayla Rai MD 03/28/21 1321 Signed By: 03/28/21 1326 [facility] BIOAVAILABLE TESTOSTERONE FE MALE, CHILDon 11-29-2019 Albumin [Mass/Vol] 4.3 g/dL Normal 3.6-5.1 [facility] Comment on above: Result Comment: [...] be regarded as investigational or for research. [facility] is qualified to perform high complexity testing under the Clinical Laboratory Improvement Amendments (CLIA). Test performed at [facility] [address] [place] [address], [address], [address] [place] [address] Residential Treatment Counselor: Adi Barksdale M.D. CLIA Number [id number] CAP Accreditation Number [id number] ------- Pathology [employer] [address] [place] [address] CLIA No. [id number] CAP Accreditation No. [id number] Residential Treatment Counselor: Isiah Burr M.D. Performed By: #### 1 000, 4500, 4510, 4520, 50609, 5000, 14916, 62998 #### [facility] Unless Otherwise Noted [address] [place] [address] / COLA #[id number]/CLIA # [id number] SEX HORM BINDING GLOBULIN 56.3 nmol/L Normal 17.3-125.0 [facility] Comment on above: Performed By: #### 1 000, 4500, 4510, 4520, 72688, 5000, 15840, 85592 #### [facility] Unless Otherwise Noted [address] [place] [address] / [facility]A #[id number]/CLIA # [id number] TESTOSTERONE BIO FEMALE 2.9 ng/dL Normal 1.5-9.4 [facility] Comment on above: Performed By: #### 1 000, 4500, 4510, 4520, 00230, 5000, 26486, 45116 #### [facility] Unless Otherwise Noted [address] [address] / [facility]A #[id number]/CLIA # [id number] TESTOSTERONE FREE FEMALE 1.3 pg/mL Normal 0.6-3.8 [facility] Comment on above: Performed By: #### 1 000, 4500, 4510, 4520, 10973, 5000, 22223, 16345 #### [facility] Unless Otherwise Noted [address] [address] / COLA #4724/CLIA # [id number] TESTOSTERONE, ULTRASENSITIVE 10 ng/dL Normal 9-55 [facility] Comment on above: Performed By: #### 1 000, 4500, 4510, 4520, 11090, 5000, 71798, 89542 #### [facility] Unless Otherwise Noted [address] [address] / COLA #4724/CLIA # [id number] ADRENOCORTICOTROPIC HORMon 0 11-27-2019 ADRENOCORTICOTROPIC HORM 18.1 PG/ML Normal 7.2-63.3 [facility] Comment on above: Result Comment: Reference range established for normal adult patients, morning blood draw (7-10 AM). Certain synthetic ACTH fragments may interfere with this assay. Test performed at [facility] [address] [place] [address] CLIA Number [id number] [facility] Accreditation Number [id number] ------- Performed By: #### 1 000, 4500, 4510, 4520, 52577, 5000, 84516, 75546 #### [facility] Diabetes [facility] Unless Otherwise Noted [address] [place] [address] / COLA #4724/CLIA # [id number] IGF-1on 11-27-2019 IGF-1 151 NG/ML Normal 43-187 [facility] and Diabetes [facility] Comment on above: Result Comment: Test performed at [facility] [address] [place] [address] CLIA Number [id number] [facility] Accreditation Number [id number] ------- Performed By: #### 1 000, 4500, 4510, 4520, 17713, 5000, 96440, 64037 #### [facility] and [facility] Unless Otherwise Noted [address] [place] [address] / COLA #4724/CLIA # [id number] CORTISOL Delonte 11-26-2019 CORTISOL AM 8.6 UG/DL Normal 4.5-22.7 [facility] Comment on above: Performed By: #### 1 000, 4500, 4510, 4520, 38865, 5000, 59164, 72327 #### [facility] Unless Otherwise Noted [address] [place] [address] / COLA #4724/CLIA # [id number] FSHon 11-26-2019 FSH 26.30 mlU/mL Normal [facility] and [facility] Comment on above: Result Comment: REFE RENCE RANGES FOR FEMALES: OVULATING FEMALE: FOLLICULAR PHASE 1.98-11.6 PEAK 5.14-23.4 LUTEAL PHASE 1.38-9.58 POSTMENOPAUSAL FEMALE 21.5-131 Performed By: #### 4 530, 4540, 4550, 4577 #### [facility] Unless Otherwise Noted [address] [address] / COLA #4724/CLIA # [id number] LHon 11-26-2019 LH 23.00 mIU/ml Normal [facility] Comment on above: Result Comment: REFE RENCE RANGES FOR FEMALE: OVULATING FEMALE: FOLLICULAR PHASE 2.58-12.1 PEAK 27.3-96.9 LUTEAL PHASE 0.83-15.5 POSTMENOPAUSAL FEMALE 13.1-86.5 Performed By: #### 4 530, 4540, 4550, 4577 #### [facility] Unless Otherwise Noted [address] [address] / COLA #4724/CLIA # [id number] PROLACTINon 11-26-2019 PROLACTIN 17.3 ng/ml Normal 2.1-47.6 [facility] and [facility] Comment on above: Result Comment: IVELISSE ENOPAUSAL FEMALE 2.1 - 47.6 POSTMENOPAUSAL FEMALE 0.0 - 41.4 Performed By: #### 1 000, 4500, 4510, 4520, 83536, 5000, 13236, 08823 #### [facility] Unless Otherwise Noted [address] [address] / COLA #4724/CLIA # [id number] CBC W/AUTO DIFFon 11-25-2019 ABS BASOPHILS 0.0 X10E9/L Normal 0-0.9 [facility] and [facility] Comment on above: Result Comment: Perf ormed at [facility] [address] [address] Performed By: #### 1 000, 4500, 4510, 4520, 40879, 5000, 32485, 26715 #### [facility] Unless Otherwise Noted [address] [address] / COLA #4724/CLIA # [id number] ABS NEUTROPHILS 2.6 X10E9/L Normal 1.5-6.6 [facility] Diabetes [facility] Comment on above: Performed By: #### 1 000, 4500, 4510, 4520, 33113, 5000, 78020, 26053 #### [facility] Unless Otherwise Noted [address] [address] / COLA #4724/CLIA # [id number] Basophils/100 WBC (Bld) 0.6 % Normal [facility] Comment on above: Performed By: #### 1 000, 4500, 4510, 4520, 49040, 5000, 02536, 38099 #### [facility] Unless Otherwise Noted [address] [place] [address] / COLA #4724/CLIA # [id number] Eosinophils (Bld) [#/Vol] 0.2 10*3/uL Normal 0.0-0.4 [facility] Comment on above: Performed By: #### 1 000, 4500, 4510, 4520, 93958, 5000, 97484, 12674 #### Endocrine and Diabetes [facility] Unless Otherwise Noted [address] [address] / COLA #4724/CLIA # [id number] Eosinophils/100 WBC (Bld) 3.1 % Normal [facility] Comment on above: Performed By: #### 1 000, 4500, 4510, 4520, 48582, 5000, 93819, 83218 #### [facility] Unless Otherwise Noted [address] [address] / COLA #4724/CLIA # [id number] Erythrocyte distribution width (RBC) [Ratio] 13.3 % Normal 11.5-14.7 [facility] Comment on above: Performed By: #### 1 000, 4500, 4510, 4520, 90630, 5000, 17544, 35607 #### [facility] and [facility] Unless Otherwise Noted [address] [place] [address] / COLA #4724/CLIA # [id number] Hematocrit (Bld) [Volume fraction] 39.4 % Normal 35-47 [facility] Comment on above: Performed By: #### 1 000, 4500, 4510, 4520, 91737, 5000, 01789, 97183 #### [facility] and [facility] Unless Otherwise Noted [address] [place] [address] / COLA #4724/CLIA # [id number] Hemoglobin (Bld) [Mass/Vol] 13.3 g/dL Normal 11.7-16.0 [facility] Comment on above: Performed By: #### 1 000, 4500, 4510, 4520, 50076, 5000, 14566, 30558 #### [facility] Unless Otherwise Noted [address] [place] [address] / COLA #4724/CLIA # [id number] Lymphocytes (Bld) [#/Vol] 1.8 10*3/uL Normal 1.0-3.5 [facility] Comment on above: Performed By: #### 1 000, 4500, 4510, 4520, 45248, 5000, 44129, 35199 #### [facility] and [facility] Unless Otherwise Noted [address] [place] [address] / COLA #4724/CLIA # [id number] Lymphocytes/100 WBC (Bld) 35.0 % Normal [facility] Comment on above: Performed By: #### 1 000, 4500, 4510, 4520, 35832, 5000, 40879, 23996 #### [facility] Unless Otherwise Noted [address] [place] [address] / COLA #4724/CLIA # [id number] MCH (RBC) [Entitic mass] 31.2 pg Normal 26-33.5 [facility] Comment on above: Performed By: #### 1 000, 4500, 4510, 4520, 26209, 5000, 06567, 03130 #### [facility] Unless Otherwise Noted [address] [place] [address] / COLA #4724/CLIA # [id number] MCHC (RBC) [Mass/Vol] 33.7 g/dL Normal 32-36 End [facility] Comment on above: Performed By: #### 1 000, 4500, 4510, 4520, 78382, 5000, 41326, 28256 #### [facility] and [facility] Unless Otherwise Noted [address] [place] [address] / COLA #4724/CLIA # [id number] MCV (RBC) [Entitic vol] 93 fL Normal 81-100 [facility] Comment on above: Performed By: #### 1 000, 4500, 4510, 4520, 30225, 5000, 91533, 65095 #### [facility] and [facility] Unless Otherwise Noted [address] [address] / COLA #4724/CLIA # [id number] Monocytes (Bld) [#/Vol] 0.5 10*3/uL Normal 0-0.9 [facility] Comment on above: Performed By: #### 1 000, 4500, 4510, 4520, 01531, 5000, 26798, 26286 #### [facility] Unless Otherwise Noted [address] [address] / COLA #4724/CLIA # [id number] Monocytes/100 WBC (Bld) 10.0 % Normal [facility] Comment on above: Performed By: #### 1 000, 4500, 4510, 4520, 21826, 5000, 39249, 99023 #### [facility] Unless Otherwise Noted [address] [address] / COLA #4724/CLIA # [id number] Neutrophils/100 WBC (Bld) 51.3 % Normal [facility] Comment on above: Performed By: #### 1 000, 4500, 4510, 4520, 92871, 5000, 44935, 45179 #### [facility] Unless Otherwise Noted [address] [address] / COLA #4724/CLIA # [id number] Platelet mean volume (Bld) [Entitic vol] 8.8 fL Normal 7-12 [facility] Comment on above: Performed By: #### 1 000, 4500, 4510, 4520, 20642, 5000, 89107, 70750 #### [facility] Unless Otherwise Noted [address] [address] / COLA #4724/CLIA # [id number] Platelets (Bld) [#/Vol] 225 10*3/uL Normal 150-450 [facility] Comment on above: Performed By: #### 1 000, 4500, 4510, 4520, 56322, 5000, 45628, 36492 #### [facility] Unless Otherwise Noted [address] [address] / COLA #4724/CLIA # [id number] RBC (Bld) [#/Vol] 4.25 X10E12/L Normal 3.80-5.20 [facility] Comment on above: Performed By: #### 1 000, 4500, 4510, 4520, 61943, 5000, 88395, 69024 #### [facility] Unless Otherwise Noted [address] [address] / COLA #4724/CLIA # [id number] WBC (Bld) [#/Vol] 5.1 10*3/uL Normal 4.8-10.8 [facility] Comment on above: Performed By: #### 1 000, 4500, 4510, 4520, 34359, 5000, 60301, 79072 #### [facility] Unless Otherwise Noted [address] [address] / COLA #4724/CLIA # [id number] [facility] 11-25-2019 Albumin [Mass/Vol] 4.2 g/dL Normal 3.5-5.0 [facility] Comment on above: Performed By: #### 1 000, 4500, 4510, 4520, 18788, 5000, 69156, 93447 #### [facility] Unless Otherwise Noted [address] [address] / COLA #4724/CLIA # [id number] ALP [Catalytic activity/Vol] 103.0 U/L Normal 38.0-126.0 [facility] Comment on above: Performed By: #### 1 000, 4500, 4510, 4520, 20682, 5000, 20366, 51783 #### [facility] Unless Otherwise Noted [address] [address] / COLA #4724/CLIA # [id number] ALT [Catalytic activity/Vol] 62.0 U/L Normal 13.0-69.0 [facility] Comment on above: Performed By: #### 1 000, 4500, 4510, 4520, 84470, 5000, 72942, 62231 #### [facility] Unless Otherwise Noted [address] [address] / COLA #4724/CLIA # [id number] Anion gap [Moles/Vol] 4.0 mmol/L Low 10.0-15.0 End [facility] Diabetes [facility] Comment on above: Performed By: #### 1 000, 4500, 4510, 4520, 77643, 5000, 09355, 02116 #### [facility] Unless Otherwise Noted [address] [address] / COLA #4724/CLIA # [id number] AST [Catalytic activity/Vol] 30.0 U/L Normal 15.0-46.0 [facility] Comment on above: Performed By: #### 1 000, 4500, 4510, 4520, 60785, 5000, 48047, 78874 #### [facility] Unless Otherwise Noted [address] [address] / COLA #4724/CLIA # [id number] Bilirubin Ql (U) 0.50 mg/dL Normal 0.20-1.30 [facility] Comment on above: Performed By: #### 1 000, 4500, 4510, 4520, 42112, 5000, 68092, 37372 #### [facility] Unless Otherwise Noted [address] / COLA #4724/CLIA # [id number] BUN/Cre Ratio 32.9 Ratio High 7.0-27.0 [facility] Comment on above: Performed By: #### 1 000, 4500, 4510, 4520, 07561, 5000, 43524, 02304 #### [facility] Diabetes [facility] Unless Otherwise Noted [address] / COLA #4724/CLIA # [id number] Calcium [Mass/Vol] 9.5 mg/dL Normal 8.4-10.2 [facility] Comment on above: Performed By: #### 1 000, 4500, 4510, 4520, 33306, 5000, 16746, 15248 #### [facility] Unless Otherwise Noted [address] / COLA #4724/CLIA # [id number] Chloride [Moles/Vol] 102.0 mmol/L Normal 98.0-107.0 [facility] Diabetes [facility] Comment on above: Performed By: #### 1 000, 4500, 4510, 4520, 67265, 5000, 50114, 08575 #### [facility] Unless Otherwise Noted [address] / COLA #4724/CLIA # [id number] CO2 [Moles/Vol] 31.0 mmol/L High 22.0-30.0 [facility] Diabetes [facility] Comment on above: Performed By: #### 1 000, 4500, 4510, 4520, 78289, 5000, 02365, 21272 #### [facility] Diabetes [facility] Unless Otherwise Noted [address] / COLA #4724/CLIA # [id number] Creatinine [Mass/Vol] 0.7 mg/dL Normal 0.5-1.0 End [facility] Comment on above: Performed By: #### 1 000, 4500, 4510, 4520, 42140, 5000, 65108, 07202 #### Endocrine and Diabetes [facility] Unless Otherwise Noted [address] [place] [address] / COLA #4724/CLIA # [id number] GFR/1.73 sq M predicted among blacks MDRD (S/P/Bld) [Vol rate/Area] 110.1 ml/m1.73 Normal [facility] Comment on above: Performed By: #### 1 000, 4500, 4510, 4520, 51754, 5000, 11507, 25049 #### [facility] Unless Otherwise Noted [address] [place] [address] / COLA #4724/CLIA # [id number] GFR/1.73 sq M predicted among non-blacks MDRD (S/P/Bld) [Vol rate/Area] 91.0 ml/m1.73 [facility] Comment on above: Performed By: #### 1 000, 4500, 4510, 4520, 13901, 5000, 02093, 40450 #### Endocrine and [facility] Unless Otherwise Noted [address] [place] [address] / COLA #4724/CLIA # [id number] GFR/1.73 sq M predicted among non-blacks MDRD (S/P/Bld) [Vol rate/Area] 96.2 ml/m1.73 [facility] Diabetes [facility] Comment on above: Performed By: #### 1 000, 4500, 4510, 4520, 86891, 5000, 95716, 24260 #### [facility] Unless Otherwise Noted 2[address] [facility] [address] [place] [address] / COLA #4724/CLIA # [id number] Glucose [Mass/Vol] 109.0 mg/dL High 74.0-106.0 [facility] Diabetes [facility] Comment on above: Performed By: #### 1 000, 4500, 4510, 4520, 37407, 5000, 45472, 83934 #### [facility] Unless Otherwise Noted [address] [address] / COLA #4724/CLIA # [id number] Potassium [Moles/Vol] 4.3 mmol/L Normal 3.5-5.1 End [facility] Diabetes [facility] Comment on above: Performed By: #### 1 000, 4500, 4510, 4520, 05517, 5000, 31294, 32348 #### [facility] Unless Otherwise Noted [address] [place] [address] / COLA #4724/CLIA # [id number] Protein [Mass/Vol] 6.8 g/dL Normal 6.3-8.2 [facility] Diabetes [facility] Comment on above: Performed By: #### 1 000, 4500, 4510, 4520, 77174, 5000, 54646, 78260 #### [facility] Unless Otherwise Noted [address] [facility] [address] [place] [address] / COLA #4724/CLIA # [id number] Sodium [Moles/Vol] 137.0 mmol/L Normal 137.0-145.0 End [facility] Diabetes [facility] Comment on above: Performed By: #### 1 000, 4500, 4510, 4520, 37627, 5000, 09296, 93580 #### [facility] Diabetes [facility] Unless Otherwise Noted [address] [address] / COLA #4724/CLIA # [id number] Urea nitrogen [Mass/Vol] 23.0 mg/dL High 7.0-17.0 [facility] Comment on above: Performed By: #### 1 000, 4500, 4510, 4520, 39426, 5000, 12064, 93227 #### [facility] Unless Otherwise Noted [address] [address] / COLA #4724/CLIA # [id number] FT3on 11-25-2019 FT3 4.39 pg/mL Normal 2.71-6.16 [facility] Comment on above: Performed By: #### 1 000, 4500, 4510, 4520, 03890, 5000, 80082, 89997 #### [facility] Unless Otherwise Noted [address] [place] [address] / COLA #4724/CLIA # [id number] FT4on 11-25-2019 Free T4 [Mass/Vol] 0.95 ng/dL Normal 0.64-1.[address] [facility] Comment on above: Performed By: #### 1 000, 4500, 4510, 4520, 06873, 5000, 21089, 19393 #### [facility] Unless Otherwise Noted [address] [address] / COLA #4724/CLIA # [id number] TSHon 11-25-2019 TSH Qn 0.35 uIU/ml Low 0.47-4.68 [facility] Comment on above: Performed By: #### 1 000, 4500, 4510, 4520, 91620, 5000, 10779, 59737 #### [facility]. Unless Otherwise Noted [address] [place] [address] [place] [address] / MERLY #4724/LAKIA # [id number] Vital Signs Date Time Vital Sign Value Performing Clinician Facility 09-29-2023 10:33-0500 Body height 167.6 cm South Saba DO Work Phone: [facility] 09-29-2023 10:33-0500 Body weight 62.14 kg South Saba DO Work Phone: [facility] 09-12-2023 10:00-0400 Body height 167.64 cm Roland Ball Other [facility] Other 09-12-2023 10:00-0400 Body mass index (BMI) [Ratio] 23.05 kg/m2 Roland Ball Other [facility] Other 09-12-2023 10:00-0400 Body weight 64.77 kg Roland Ball Other [facility] Other 09-12-2023 10:00-0400 Diastolic blood pressure 75 mm[Hg] Roland Ball Other [facility] Other 09-12-2023 10:00-0400 Respiratory rate 12 /min Roland Ball Other [facility] Other 09-12-2023 10:00-0400 Systolic blood pressure 131 mm[Hg] Roland Ball Other [facility] Other 08-29-2023 10:55-0400 Body height 167.6 cm Elder Galan APRN.COMPRESSION MOLDING MACHINE OPERATOR Work Phone: [facility] 08-29-2023 10:55-0400 Body temperature 98.01 [degF] Elder Angelia OUTSIDE INSTALLER APPRENTICE.COMPRESSION MOLDING MACHINE OPERATOR Work Phone: [facility] 08-29-2023 10:55-0400 Body weight 66.68 kg Elder Angelia OUTSIDE INSTALLER APPRENTICE.COMPRESSION MOLDING MACHINE OPERATOR Work Phone: [facility] 08-29-2023 10:55-0400 Diastolic blood pressure 78 mm[Hg] Elder Angelia OUTSIDE INSTALLER APPRENTICE.COMPRESSION MOLDING MACHINE OPERATOR Work Phone: [facility] 08-29-2023 10:55-0400 Heart rate 82 /min Elder Angelia OUTSIDE INSTALLER APPRENTICE.COMPRESSION MOLDING MACHINE OPERATOR Work Phone: [facility] 08-29-2023 10:55-0400 SaO2% (BldA) [Mass fraction] 99 % Elder Angelia OUTSIDE INSTALLER APPRENTICE.COMPRESSION MOLDING MACHINE OPERATOR Work Phone: [facility] 08-29-2023 10:55-0400 Systolic blood pressure 163 mm[Hg] Elder Angelia OUTSIDE INSTALLER APPRENTICE.COMPRESSION MOLDING MACHINE OPERATOR Work Phone: [facility] 08-29-2023 10:03-0400 Body temperature 98.01 [degF] Heidi Macdonald MD Work Phone: [facility] 08-29-2023 10:03-0400 Body weight 66.68 kg Heidi Macdonald MD Work Phone: [facility] 08-29-2023 10:03-0400 Diastolic blood pressure 77 mm[Hg] Heidi Macdonald MD Work Phone: [facility] 08-29-2023 10:03-0400 Heart rate 82 /min Heidi Macdonald MD Work Phone: [facility] 08-29-2023 10:03-0400 Respiratory rate 16 /min Heidi Macdonald MD Work Phone: [facility] 08-29-2023 10:03-0400 SaO2% (BldA) [Mass fraction] 99 % Heidi Macdonald MD Work Phone: [facility] 08-29-2023 10:03-0400 Systolic blood pressure 157 mm[Hg] Heidi Macdonald MD Work Phone: [facility] 07-04-2023 09:18-0400 Body height 167.6 cm South Saba DO Work Phone: [facility] 07-04-2023 09:18-0400 Body temperature 97.59 [degF] South Jayant DO Work Phone: [facility] 07-04-2023 09:18-0400 Body weight 66.5 kg South Jayant DO Work Phone: [facility] 07-04-2023 09:18-0400 Diastolic blood pressure 68 mm[Hg] South Jayant DO Work Phone: [facility] 07-04-2023 09:18-0400 Heart rate 73 /min South Jayant DO Work Phone: [facility] 07-04-2023 09:18-0400 SaO2% (BldA) [Mass fraction] 100 % South Jayant DO Work Phone: [facility] 07-04-2023 09:18-0400 Systolic blood pressure 139 mm[Hg] South Jayant DO Work Phone: [facility] 06-27-2023 10:30-0400 Body temperature 97.39 [degF] Heidi Macdonald MD Work Phone: [facility] 06-27-2023 10:30-0400 Body weight 69.4 kg Heidi Macdonald MD Work Phone: [facility] 06-27-2023 10:30-0400 Diastolic blood pressure 76 mm[Hg] Heidi Macdonald MD Work Phone: [facility] 06-27-2023 10:30-0400 Heart rate 70 /min Heidi Macdonald MD Work Phone: [facility] 06-27-2023 10:30-0400 Respiratory rate 16 /min Heidi Macdonald MD Work Phone: [facility] 06-27-2023 10:30-0400 SaO2% (BldA) [Mass fraction] 97 % Heidi Macdonald MD Work Phone: [facility] 06-27-2023 10:30-0400 Systolic blood pressure 141 mm[Hg] Heidi Macdonald MD Work Phone: [facility] 05-23-2023 09:45-0400 Body height 167.64 cm Roland Ball Other [facility] [facility] Other 05-23-2023 09:45-0400 Body mass index (BMI) [Ratio] 24.79 kg/m2 Roland Ball Other [facility] Other 05-23-2023 09:45-0400 Body weight 69.67 kg Roland Ball Other [facility] Other 05-23-2023 09:45-0400 Diastolic blood pressure 78 mm[Hg] Roland Ball Other [facility] Other 05-23-2023 09:45-0400 Respiratory rate 12 /min Roland Ball Other [employer] Other 05-23-2023 09:45-0400 Systolic blood pressure 158 mm[Hg] Roland Ball Other [employer] Other 04-23-2023 13:30-0400 Body height 167.64 cm Roland Ball Other [employer] Other 04-23-2023 13:30-0400 Body mass index (BMI) [Ratio] 24.34 kg/m2 Roland Ball Other [employer] Other 04-23-2023 13:30-0400 Body weight 68.4 kg Roland Ball Other [employer] Other 04-23-2023 13:30-0400 Diastolic blood pressure 74 mm[Hg] Roland Ball Other [employer] Other 04-23-2023 13:30-0400 Respiratory rate 12 /min Roland Ball Other [employer] Other 04-23-2023 13:30-0400 Systolic blood pressure 131 mm[Hg] Roland Ball Other [employer] Other 03-05-2023 09:30-0400 Body height 167.6 cm Juan Manuel Pack OUTSIDE INSTALLER APPRENTICE.COMPRESSION MOLDING MACHINE OPERATOR Work Phone: [facility] 03-05-2023 09:30-0400 Body weight 70.22 kg Juan Manuel Pack OUTSIDE INSTALLER APPRENTICE.COMPRESSION MOLDING MACHINE OPERATOR Work Phone: [facility] 03-05-2023 09:30-0400 Diastolic blood pressure 90 mm[Hg] Juan Manuel Pack OUTSIDE INSTALLER APPRENTICE.COMPRESSION MOLDING MACHINE OPERATOR Work Phone: [facility] 03-05-2023 09:30-0400 Heart rate 85 /min Juan Manuel Pack OUTSIDE INSTALLER APPRENTICE.COMPRESSION MOLDING MACHINE OPERATOR Work Phone: [facility] 03-05-2023 09:30-0400 Systolic blood pressure 152 mm[Hg] Juan Manuel Pack OUTSIDE INSTALLER APPRENTICE.COMPRESSION MOLDING MACHINE OPERATOR Work Phone: [facility] 01-24-2023 08:45-0500 Body height 167.64 cm Roland Ball Other [employer] Other 01-24-2023 08:45-0500 Body mass index (BMI) [Ratio] 24.05 kg/m2 Roland Ball Other [employer] Other 01-24-2023 08:45-0500 Body temperature 96.7 [degF] Roland Ball Other [employer] Other 01-24-2023 08:45-0500 Body weight 67.59 kg Roland Ball Other [employer] Other 01-24-2023 08:45-0500 Diastolic blood pressure 93 mm[Hg] Roland Ball Other [employer] Other 01-24-2023 08:45-0500 Systolic blood pressure 165 mm[Hg] Roland Ball Other [employer] Other 01-20-2023 13:35-0500 Body height 167.64 cm Olya Sanjuanita Other [employer] Other 01-20-2023 13:35-0500 Body mass index (BMI) [Ratio] 24.53 kg/m2 Olya Sanjuanita Other [employer] Other 01-20-2023 13:35-0500 Body temperature 97.3 [degF] Olya Sanjuanita Other [employer] Other 01-20-2023 13:35-0500 Body weight 68.95 kg Olya Sanjuanita Other [employer] Other 01-20-2023 13:35-0500 Respiratory rate 18 /min Olya Sanjuanita Other [employer] Other 01-20-2023 13:35-0500 SaO2% (BldA) [Mass fraction] 95 % Olya Gann Other [employer] Other 01-03-2023 15:27-0500 Body height 167.6 cm Henry Ramos MD Work Phone: [facility] 01-03-2023 15:27-0500 Body temperature 97.81 [degF] Henry Ramos MD Work Phone: [facility] 01-03-2023 15:27-0500 Body weight 71.17 kg Henry Ramos MD Work Phone: [facility] 01-03-2023 15:27-0500 Diastolic blood pressure 87 mm[Hg] Henry Ramos MD Work Phone: [facility] 01-03-2023 15:27-0500 Heart rate 95 /min Henry Ramos MD Work Phone: [facility] 01-03-2023 15:27-0500 SaO2% (BldA) [Mass fraction] 99 % Henry Ramos MD Work Phone: [facility] 01-03-2023 15:27-0500 Systolic blood pressure 141 mm[Hg] Henry Ramos MD Work Phone: [facility] 09-26-2022 12:30-0500 Diastolic blood pressure 89 mm[Hg] Leila Alamo MD Work Phone: [facility] 09-26-2022 12:30-0500 Heart rate 79 /min Leila Alamo MD Work Phone: [facility] 09-26-2022 12:30-0500 Respiratory rate 18 /min Leila Alamo MD Work Phone: [facility] 09-26-2022 12:30-0500 SaO2% (BldA) [Mass fraction] 98 % Leila Alamo MD Work Phone: [facility] 09-26-2022 12:30-0500 Systolic blood pressure 140 mm[Hg] Leila Alamo MD Work Phone: [facility] 09-26-2022 11:25-0500 Body height 167.6 cm Leila Alamo MD Work Phone: [facility] 09-26-2022 11:25-0500 Body temperature 98.2 [degF] Leila Alamo MD Work Phone: [facility] 09-26-2022 11:25-0500 Body weight 68.04 kg Leila Alamo MD Work Phone: [facility] 08-07-2022 15:28-0400 Body weight 68.95 kg Henry Ramos MD Work Phone: [facility] 08-07-2022 15:28-0400 Diastolic blood pressure 91 mm[Hg] Henry Ramos MD Work Phone: [facility] 08-07-2022 15:28-0400 SaO2% (BldA) [Mass fraction] 98 % Henry Ramos MD Work Phone: [facility] 08-07-2022 15:28-0400 Systolic blood pressure 132 mm[Hg] Henry Ramos MD Work Phone: [facility] 03-13-2022 14:38-0400 Body height 169.5 cm Henry Ramos MD Work Phone: [facility] 03-13-2022 14:38-0400 Body temperature 96.8 [degF] Henry Ramos MD Work Phone: [facility] 03-13-2022 14:38-0400 Body weight 66.32 kg Henry Ramos MD Work Phone: [facility] 03-13-2022 14:38-0400 Diastolic blood pressure 96 mm[Hg] Henry Ramos MD Work Phone: [facility] 03-13-2022 14:38-0400 Heart rate 85 /min Henry Ramos MD Work Phone: [facility] 03-13-2022 14:38-0400 Respiratory rate 16 /min Henry Ramos MD Work Phone: [facility] 03-13-2022 14:38-0400 SaO2% (BldA) [Mass fraction] 98 % Henry Ramos MD Work Phone: [facility] 03-13-2022 14:38-0400 Systolic blood pressure 151 mm[Hg] Henry Ramos MD Work Phone: [facility] 07-07-2021 14:50-0400 Diastolic blood pressure 101 mm[Hg] Mayra Michel MD Work Phone: [facility] Work Phone: 07-07-2021 14:50-0400 Heart rate 70 /min Mayra Michel MD Work Phone: [facility] Work Phone: 07-07-2021 14:50-0400 Respiratory rate 13 /min Mayra Michel MD Work Phone: [facility] Work Phone: 07-07-2021 14:50-0400 SaO2% (BldA) [Mass fraction] 99 % Mayra Michel MD Work Phone: [facility] Work Phone: 07-07-2021 14:50-0400 Systolic blood pressure 133 mm[Hg] Mayra Michel MD Work Phone: [facility] Work Phone: 07-07-2021 13:25-0400 Body height 167.6 cm Mayra Michel MD Work Phone: [facility] Work Phone: 07-07-2021 13:25-0400 Body mass index (BMI) [Ratio] 24.19 kg/m2 Mayra Michel MD Work Phone: [facility] Work Phone: 07-07-2021 13:25-0400 Body temperature 98.6 [degF] Mayar Michel MD Work Phone: [facility] Work Phone: 07-07-2021 13:25-0400 Body weight 67.99 kg Mayra Michel MD Work Phone: [facility] Work Phone: 11-25-2019 16:19-0500 Body weight 70.4 Kg [facility] Comment on above: Performed By: #### 1000, 4500, 4510, 452 0, 48339, 5000, 31224, 10582 #### [facility] Unless Otherwise Noted [address] [place] [address] / [facility] #[id number]/LAKIA # [id number] Encounters Encounter Date Encounter Type Care Provider Facility Start: 12-17-2023 End: 12-17-2023 ambulatory Roland Serrano Other [employer] Other Start: 12-17-2023 Telephone encounter Roland Christensen [facility] Start: 10-23-2023 End: 10-23-2023 ambulatory Roland Serrano Other [employer] Other Start: 10-23-2023 Telephone encounter Roland VOGT [facility] Start: 10-02-2023 End: 10-02-2023 ambulatory LEIGH MORENO Not Available Start: 09-29-2023 End: 09-30-2023 ambulatory ROLAND SERRANO Facility:[facility] Start: 09-29-2023 End: 09-29-2023 Patient encounter procedure South Saba DO Work Phone: Colorectal Surgery Comment on above: Radiation proctitis (Primary Dx); Endometrial cancer (HCC) Start: 09-21-2023 End: 09-21-2023 ambulatory Roland Serrano Other [employer] Other Start: 09-21-2023 Telephone encounter Roland Christensen [facility] Start: 09-18-2023 End: 09-18-2023 ambulatory Roland Serrano Other [employer] Other Start: 09-18-2023 Telephone encounter Roland Ball [facility] Start: 09-17-2023 End: 09-17-2023 ambulatory Roland Ball Other [employer] Other Start: 09-17-2023 Telephone encounter Roland Ball [facility] Start: 09-15-2023 End: 09-15-2023 ambulatory Roland Ball Other [employer] Other Start: 09-15-2023 Telephone encounter Roland Ball [facility] Start: 09-14-2023 End: 09-14-2023 ambulatory Roland Ball Other [employer] Other Start: 09-14-2023 Telephone encounter Roland Ball [facility] Start: 09-12-2023 End: 09-12-2023 ambulatory Roland Ball Other [employer] Other Start: 09-12-2023 Encounter for genera l adult medical examination without abnormal findings Roland Ball [facility] Start: 09-12-2023 Periodic preventive med est patient 40-64yrs Roland Ball [facility] Start: 09-10-2023 End: 09-10-2023 ambulatory Roland Ball Other [employer] Other Start: 09-10-2023 Telephone encounter Roland Ball [facility] Start: 09-03-2023 End: 09-03-2023 ambulatory Roland Ball Other [employer] Other Start: 09-03-2023 Telephone encounter Roland Ball [facility] Start: 09-02-2023 Telephone encounter Roland Ball [facility] Start: 09-02-2023 End: 09-02-2023 ambulatory ROLAND E MAGGIE [place] [facility] Other Start: 09-01-2023 End: 09-01-2023 ambulatory Roland Ball Other Located Within [facility] [employer] Other Start: 09-01-2023 Telephone encounter Roland Serrano TORIE Fermin Serrano [facility] Start: 08-29-2023 End: 08-29-2023 ambulatory ROLAND SERRANO Facility:[facility] Start: 08-29-2023 End: 08-30-2023 ambulatory ROLAND SERRANO Facility:[facility] Start: 08-29-2023 Encounter for other preprocedural examination ELDER GALAN [facility] Start: 08-29-2023 End: 08-29-2023 ambulatory ROLAND SERRANO Facility:[facility] Start: 08-29-2023 End: 08-29-2023 Preprocedural examination done Elder Galan APRN.CNP Work Phone: [facility] Work Phone: Start: 08-29-2023 End: 08-29-2023 ambulatory Pulm Fct Lab Main 8 Pulmonary Medicine Comment on above: Spirometry Start: 08-29-2023 End: 08-29-2023 Patient encounter procedure Pulm Fct Lab Main 8 [facility] Comment on above: Dyspnea and respirat ory abnormalities (Primary Dx); Calcified nodule; Iron deficiency anemia due to chronic blood loss Pre-op evaluation (P rimary Dx) Start: 08-29-2023 End: 08-29-2023 Subsequent hospital visit by physician Xr Chest Main A21 Radiology Comment on above: Dyspnea, unspecified type [R06.00] Start: 08-26-2023 Orders Only Heidi Macdonald MD Work Phone: [facility] [place] Comment on above: ILD (interstitial lamont ng disease) ([facility]) (Primary Dx) Start: 08-22-2023 ambulatory South rincon DO Work Phone: [facility] Start: 08-22-2023 Patient encounter procedure South Saba DO Work Phone: Colorectal Surgery Comment on above: Pre op appointment Start: 08-22-2023 End: 08-22-2023 Subsequent hospital visit by physician [facility] Work Phone: [facility] Radiology CT Scan Comment on above: Interstitial pulmona ry disease (HCC) [J84.9] Start: 08-14-2023 ambulatory ROLAND SERRANO Facilit y:[facility] Start: 08-04-2023 End: 08-04-2023 ambulatory Roland Serrano Other [employer] Other Start: 08-04-2023 Office outpatient vi sit 15 minutes Roland Serrano EDDI Maggie [facility] Start: 07-22-2023 ambulatory South Rendon ntbernie DO Work Phone: Colorectal Surgery Start: 07-22-2023 Telephone encounter South Saba DO Work Phone: Colorectal Surgery Comment on above: Patient Update Start: 07-08-2023 End: 07-08-2023 ambulatory Roland Serrano Other [employer] Other Start: 07-08-2023 Telephone encounter Roland Serrano TORIE Maggie [facility] Start: 07-04-2023 End: 07-05-2023 ambulatory South [...] procedure Pulm Fct Lab Main 9 [facility] Comment on above: Interstitial pulmona ry disease (HCC) (Primary Dx); Other secondary pulmonary hypertension (HCC) Start: 05-26-2023 ambulatory Henry perales MD Work Phone: Gynecology Oncology Comment on above: Procitis Start: 05-23-2023 End: 05-23-2023 ambulatory Roland Serrano Other [employer] Other Start: 05-23-2023 Office outpatient vi sit 15 minutes Roland Serrano [facility] Start: 05-13-2023 End: 05-13-2023 ambulatory Roland Serrano Other [employer] Other Start: 05-13-2023 Telephone encounter Roland Serrano TORIE [facility] Start: 04-23-2023 End: 04-23-2023 ambulatory Roland Serrano Other [employer] Other Start: 04-23-2023 Patient encounter procedure Roland Serrano [facility] Start: 03-25-2023 End: 03-25-2023 ambulatory Roland Serrano Other [employer] Other Start: 03-25-2023 Telephone encounter Roland Serrano TORIE [facility] Start: 03-21-2023 Telephone encounter Roland Serrano TORIE [facility] Start: 03-21-2023 End: 03-22-[address] ROLAND SERRANO Located Within [facility] [employer] Other Start: 03-11-2023 End: 03-11-2023 ambulatory Roland Serrano Other [employer] Other Start: 03-11-2023 Telephone encounter Roland Serrano TORIE [facility] Start: 03-10-2023 End: 03-11-[address] ROLAND SERRANO Located Within [facility] [employer] Other Start: 03-10-2023 Telephone encounter Roland Serrano TORIE [facility] Start: 03-05-2023 End: 03-05-2023 ambulatory ROLAND SERRANO Facility:[facility] Start: 03-05-2023 End: 03-05-2023 Patient encounter procedure Juan Manuel Medina OUTSIDE INSTALLER APPRENTICE.COMPRESSION MOLDING MACHINE OPERATOR Work Phone: Gastroenterology Comment on above: Rectal bleeding (Vivi nicho Dx) Start: 01-24-2023 End: 01-24-2023 ambulatory Roland Serrano Other [employer] Other Start: 01-24-2023 Office outpatient vi sit 15 minutes Roland Serrano [facility] Start: 01-23-2023 End: 01-23-2023 ambulatory Roland Serrano Other [employer] Other Start: 01-23-2023 Telephone encounter Roland Serrano [facility] Start: 01-20-2023 Office outpatient vi sit [address] [facility] Start: 01-20-2023 End: 01-20-[address] ROLAND SERRANO Located Within [facility] [employer] Other Start: 01-07-2023 End: 01-07-2023 ambulatory Roland Serrano Other [employer] Other Start: 01-07-2023 Telephone encounter Roland Serrano [facility] Start: 01-03-2023 End: 01-04-2023 ambulatory ROLAND SERRANO Facility:[facility] Start: 01-03-2023 End: 01-04-2023 ambulatory ROLAND SERRANO Facility:[facility] Start: 01-03-2023 End: 01-04-2023 ambulatory Henry Ramos MD Work Phone: Gynecology Oncology Comment on above: Recurrent carcinoma of endometrium (HCC) (Primary Dx); Radiation proctitis; Blood per rectum Start: 01-03-2023 End: 01-04-2023 Patient encounter procedure Henry Ramos MD Work Phone: [facility] Start: 12-25-2022 Telephone encounter Aretha [...] examination without abnormal findings DR ROLAND SERRANO [facility] Start: 09-04-2022 End: 09-05-[address] ROLAND SERRANO Facility:[facility] Start: 09-04-2022 End: 09-05-2022 Encounter for general adult medical examination without abnormal findings DR ROLAND SERRANO Facility:[facility] Start: 08-29-2022 Adult health examination Roland Serrano Other [employer] Other Start: 08-29-2022 Encounter for genera l adult medical examination without abnormal findings Roland Serrano Other [employer] Other Start: 08-29-2022 Pre-procedure evaluation check Roland Serrano Other [employer] Other Start: 08-07-2022 End: 08-07-2022 ambulatory Henry Ramos MD Work Phone: Gynecology Oncology Comment on above: Recurrent carcinoma of endometrium (HCC) (Primary Dx); Radiation proctitis; Foreshortening of vagina; Endometrial cancer (HCC); Vaginal atrophy; Rectal bleeding Start: 08-07-2022 End: 08-07-2022 Patient encounter procedure Henry Ramos MD Work Phone: [facility] Start: 06-12-2022 End: 06-12-2022 ambulatory SALOMON JACOME Facility:[facility] Start: 03-13-2022 End: 03-13-2022 ambulatory Henry Ramos MD Work Phone: Gynecology Oncology Comment on above: Recurrent carcinoma of endometrium (HCC) (Primary Dx); Vaginal atrophy; Foreshortening of vagina Start: 03-13-2022 End: 03-13-2022 Patient encounter procedure Henry Ramos MD Work Phone: [facility] Start: 11-21-2021 End: 11-22-2021 Emergency department patient visit ROLAND E [facility] Start: 07-07-2021 End: 07-07-2021 Emergency department patient visit ROLAND Bernie [facility] Start: 07-07-2021 End: 07-07-2021 Emergency department patient visit Mayra Michel MD Work Phone: [facility] ED Comment on above: Dizziness (Primary D x); Dehydration Procedures Date Procedure Procedure Detail Performing Clinician Start: 09-29-2023 Follow-up visit Follow Up SOUTH SABA Start: 09-02-2023 Antibody screen JUAN SERRANO Comment on above: Order Comment: Speci men Type: BLOOD SPECIMEN Ordering Facility: [facility] Address: [address] [place] [address] Performed By: #### 5 [id number], [id number] #### [facility] CLIA [id number] [address] [place] [address] Start: 08-29-2023 Antibody screen JUAN SERRANO Comment on above: Order Comment: Speci men Type: BLOOD SPECIMEN Ordering Facility: [facility] Address: [address] [place] [address] Performed By: #### 5 [id number], [id number] #### [facility] CLIA [id number] [address] [place] [address] Start: 08-29-2023 Spmtry w/vc expirato ry bernie [...] w /collj spec when pfrmd Ernesto Chacko BETTY.COMPRESSION MOLDING MACHINE OPERATOR Work Phone: Start: 09-26-2022 Colonoscopy Leila Alamo MD Work Phone: Start: 11-02-2021 Antibody screen Comment on above: Order Comment: Trans fuse now? N Result Comment: PERF ORMED BY: [facility] [address] [place] [address] PATHOLOGIST FURNISHINGS CONSERVATOR CLAIRE ANTHONY M.D. Start: 10-15-2021 Antibody screen Comment on above: Order Comment: Date of Surgery: [id number] # of PRBC units on hold?: 2 Result Comment: PERF ORMED BY: [facility] [address] [place] [address] PATHOLOGIST FURNISHINGS CONSERVATOR CLAIRE ANTHONY M.D. Start: 09-20-2021 Adult depression scr eening assessment Henry Ramos MD Work Phone: Start: 08-20-2021 Antibody screen Comment on above: Order Comment: Date of Surgery: [id number] # of PRBC units on hold?: 2 Result Comment: PERF ORMED BY: [facility] [address] [place] [address] PATHOLOGIST FURNISHINGS CONSERVATOR CLAIRE ANTHONY M.D. Start: 07-07-2021 Urinalysis microscopic [...] Author Start: 08-29-2026 Diabetes Screening Diabetes Screenrenetta [facility] Start: 07-04-2026 DIABETES SCREEN DIABETES SCREEN [facility] Start: 07-04-2026 Diabetes Screening Diabetes Screenin g [facility] Start: 09-26-2023 Colonoscopy COLONOSCOPY [facility] Start: 09-26-2023 COLORECTAL CANCER SCREENING COLORECTAL CANCER SCREENING [facility] Start: 08-26-2023 End: 09-24-2024 SPIROMETRY BASELINE ONLY SPIROMETRY BASELINE ONLY PFT Routine ILD (interstitial lung disease) (HCC) Expected: 08/26/2023, Expires: 09/24/2024 [facility] Work Phone: Comment on above: Expected: 08/26/2023 , Expires: 09/24/2024 Start: 07-22-2023 End: 09-21-2023 CBC W Auto Differential panel - Blood CBC + DIFF Lab Routine Radiation proctitis Expected: 07/22/2023, Expires: 09/21/2023 [facility] Work Phone: Comment on above: Expected: 07/22/2023 , Expires: 09/21/2023 Start: 07-22-2023 End: 09-21-2023 Comprehensive metabolic 2000 panel - Serum or Plasma COMP METABOLIC PANEL Lab Routine Radiation proctitis Expected: 07/22/2023 (Approximate), Expires: 09/21/2023 [facility] Work Phone: Comment on above: Expected: 07/22/2023 (Approximate), Expires: 09/21/2023 Start: 07-18-2023 Covid-19 Vaccine () Covid-19 Vaccine () [facility] Start: 07-18-2023 Influenza vaccination [facility] Start: 11-17-2022 DEPRESSION ASSESSMENT DEPRESSION ASS ESSMENT [facility] Start: 09-20-2022 Adult depression scr eening assessment DEPRESSION SCREENING [facility] Start: 08-12-2022 DIABETES SCREEN DIABETES SCREEN [facility] Start: 08-07-2022 End: 10-07-2022 CBC W Auto Differential panel - Blood CBC + DIFF Lab Routine Rectal bleeding Expected: 08/07/2022, Expires: 10/07/2022 [facility] Work Phone: Comment on above: Expected: 08/07/2022 , Expires: 10/07/2022 Start: 07-18-2022 Influenza vaccination C [facility] Start: 11-27-2021 COVID-19 VACCINE (3 - Booster for Moderna series) COVID-19 VACCINE (3 - Booster for Moderna series) [facility] Start: 11-17-2021 DEPRESSION ASSESSMENT DEPRESSION ASS ESSMENT [facility] Start: 08-22-2021 COVID-19 VACCINE (3 - Booster for Moderna series) COVID-19 VACCINE (3 - Booster for Moderna series) [facility] Start: 08-22-2021 COVID-19 VACCINE (3 - Moderna series) COVID-19 VACCINE (3 - Moderna series) [facility] Start: 07-18-2021 Influenza vaccination Flu vaccine (# 1) [facility] Work Phone: Start: 2020 RSV Vaccine (1 - 1-d ose 60+ series) RSV Vaccine (1 - 1-dose 60+ series) [facility] Start: 2010 SHINGRIX VACCINE (1 of 2) [place]ST[place] GRIX VACCINE (1 of 2) [facility] Start: 2005 COLOGUARD (FIT-DNA) COLOGUARD (FIT-D NA) [facility] Start: 2005 Colonoscopy COLONOSCOPY [facility] Start: 2005 COLORECTAL CANCER SCREENING COLORECTAL CANCER SCREENING [facility] Start: [address] COLONOGRAPHY [facility] Start: 2005 FECAL OCCULT BLOOD FECAL OCCULT BLOO D [facility] Start: 2005 Lipid 1996 panel - S marcela or Plasma Lipid Screening [facility] Start: 2005 LIPID SCREEN LIPID SCREEN [facility] Start: 2005 SIGMOIDOSCOPY SIGMOIDOSCOPY [facility] Start: 2000 Mammography [facility] Start: 1990 HPV TESTING HPV TESTING [facility] Start: 1981 PAP TESTING PAP TESTING [facility] Start: 1979 Urine microalbumin profile [facility] Start: 1978 ANNUAL PCP TEAM CATERPILLAR MECHANIC SHAILA DISEASE VISIT ANNUAL PCP TEAM CHRONIC DISEASE VISIT [facility] Start: 1978 BP CONTROLLED (<130/80) BP CONTROLLE D (<130/80) [facility] Start: 1978 HEPATITIS C SCREENING HEPATITIS C SC ADELAIDA [facility] Start: 1978 HIV SCREENING HIV SCREENING [facility] End: 03-05-2024 Colonoscopy COLONOSCOPY (THERAPEUTIC) Endoscopy Routine Rectal bleeding 1 Occurrences starting 03/05/2023 until 03/05/2024 [facility] Work Phone: Comment on above: 1 Occurrences starti ng 03/05/2023 until 03/05/2024 End: 07-26-2024 Ct thorax w/o contrast material CT CHEST WO IVCON Radiology Routine Interstitial pulmonary disease (HCC) 1 Occurrences starting 06/27/2023 until 07/26/2024 [facility] Work Phone: Comment on above: 1 Occurrences starti ng 06/27/2023 until 07/26/2024 End: 07-07-2021 Culture, Urine Culture, Urine Microbiology Routine Once for 1 Occurrences starting 07/07/2021 until 07/07/2021 [facility] Work Phone: Comment on above: Once for 1 Occurrenc es starting 07/07/2021 until 07/07/2021 Culture, Urine Culture, Urine Microbiology Routine 07/07/2021 2:00 PM EDT [facility] Work Phone: End: 06-27-2024 Echocardiography ECHO Cardiology Routine Other secondary pulmonary hypertension (HCC) 1 Occurrences starting 06/27/2023 until 06/27/2024 [facility] [facility] Work Phone: Comment on above: 1 Occurrences starti ng 06/27/2023 until 06/27/2024 H&P for surgery H&P FOR SURGERY Procedures Routine Radiation proctitis Ordered: 07/22/2023 [facility] Work Phone: Comment on above: Ordered: 07/22/2023 End: 07-26-2024 LUNG DIFFUSION CAPACITY (DLCO) LUNG DIFFUSION CAPACITY (DLCO) PFT Routine Interstitial pulmonary disease (HCC) 1 Occurrences starting 06/27/2023 until 07/26/2024 [facility] Work Phone: Comment on above: 1 Occurrences starti ng 06/27/2023 until 07/26/2024 LUNG DIFFUSION CAPAC ITY (DLCO) LUNG DIFFUSION CAPACITY (DLCO) PFT Routine Interstitial pulmonary disease (HCC) 08/29/2023 9:27 AM EDT [facility] Work Phone: End: 07-26-2024 LUNG VOLUMES LUNG VOLUMES PFT Routine Interstitial pulmonary disease (HCC) 1 Occurrences starting 06/27/2023 until 07/26/2024 [facility] Work Phone: Comment on above: 1 Occurrences starti ng 06/27/2023 until 07/26/2024 End: 07-26-2024 Pulmonary ventilation & perfusion imaging NM LUNG VENT / PERF VQ Radiology Routine Other secondary pulmonary hypertension (HCC) 1 Occurrences starting 06/27/2023 until 07/26/2024 [facility] Work Phone: Comment on above: 1 Occurrences starti ng 06/27/2023 until 07/26/2024 REFER FOR ADMIT INTERVIEW REFER FOR ADMIT INTERVIEW Procedures Routine Radiation proctitis Ordered: 07/22/2023 [facility] Work Phone: Comment on above: Ordered: 07/22/2023 End: 08-07-2023 Screening colonoscopy COLONOSCOPY SCREENING Endoscopy Routine Rectal bleeding 1 Occurrences starting 08/07/2022 until 08/07/2023 [facility] Work Phone: Comment on above: 1 Occurrences starti ng 08/07/2022 until 08/07/2023 End: 09-26-2022 Screening colonoscopy COLONOSCOPY SCREENING Endoscopy Routine Rectal bleeding 1 Occurrences starting 09/26/2022 until 09/26/2022 [facility] Work Phone: Comment on above: 1 Occurrences starti ng 09/26/2022 until 09/26/2022 SPIROMETRY BASELINE ONLY SPIROME TRY BASELINE ONLY PFT Routine ILD (interstitial lung disease) (HCC) 08/29/2023 9:27 AM EDT [facility] Work Phone: SPIROMETRY WITH DILA TOR IF OBSTRUCTED SPIROMETRY WITH DILATOR IF OBSTRUCTED PFT Routine Dyspnea, unspecified type 06/27/2023 10:15 AM EDT [facility] Work Phone: [facility] Immunizations Immunization Date Immunization Notes Care Provider Fa landy 06-27-2021 COVID-19 vaccine, fu ll dose (MODERNA) Henry Ramos MD Work Phone: [facility] 11-21-2020 COVID-19 vaccine, fu ll dose (MODERNA) Henry Ramos MD Work Phone: [facility] Payers Date Payer Category Payer Unknown MMO MMO [employer] [id number] 2020-Present [phone] [address] [place] [address] PPO [id number] 2020 Unknown [id number] 1960 Unknown [id number] 74 1960 Unknown [id number] 74 1960 Unknown [id number] 93 1960 Unknown [id number] [id number] 93 1960 Unknown [id number] [id number] 93 1960 Unknown [id number] 93 1960 Unknown [id number] 2.16.840.1.618000.3.579.2.5 93 1960 Unknown [id number] [id number] 93 1960 Unknown [id number] [id number] 93 1960 Unknown [id number] 259 1959 [facility] [id number] 1959 Unknown [id number] Social History Date Type Detail Facility Start: 07-07-2021 End: 08-07-2022 Tobacco smoking status NHIS Never smoker [facility] Start: 07-07-2021 End: 08-07-2022 Tobacco use and exposure [facility] Start: 1960 Sex Assigned At Not on file [facility] Work Phone: Start: 03-03-2022 End: 09-26-2022 Exposure to SARS-CoV-2 (event) Not sure [facility] Start: 03-13-2022 End: 09-29-2023 Alcohol intake Current drinker of alcohol (finding) [facility] Start: 07-28-2019 History SDOH Alcohol Comment 3 drinks per month [facility] Start: 03-05-2023 End: 06-27-2023 Sex Assigned At [facility] Start: 03-05-2023 End: 06-27-2023 History of Social function [facility] Adult Depression Screening Assessment 0 [facility] Clinical Notes 03-13-2022 to 10-23-2023 Note Date & Type Note Facility 10-23-2023 Evaluation note Encounter Date Diagnosis Assessment Notes Oct, Iron deficiency anemia due to chronic blood loss (ICD-10 - D50.0) 07 Dec, 2023 Decreased thyroid stimulating hormone (TSH) level (ICD-10 - R79.89) Oct, Pulmonary hypertension (ICD-10 - I27.20) [facility] Other [id number] NoteHNO ID: [id number] Author: [place] DO Service: ? Author [...] mortality and/or complications of treatment plan: low [facility]11-13-2023 History of Present illness Narrative* South [...] of treatment plan: low documented in this encounterMer[facility]11-05-2023 Evaluation note* Encounter Date Diagnosis Assessment Notes Treatment Notes Treatment Clinical Notes Sep, Iron deficiency anemia due to chronic blood loss (ICD-10 - D50.0) Sep, 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) [facility] Other 11-01-2023 Evaluation note* Encounter Date Diagnosis Assessment Notes Treatment Notes Treatment Clinical Notes Sep, Elevated liver enzymes (ICD-10 - R74.8) Sep, Cholestasis (ICD-10 - K83.1) Sep, Thyrotoxicosis 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 storm, 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 - E05.90) [facility] Other 10-30-2023 Evaluation note* Encounter Date Diagnosis Assessment Notes Treatment Notes Treatment Clinical Notes Aug, Decreased thyroid stimulating hormone (TSH) level (ICD-10 - R79.89) [facility] Other 10-27-2023 Evaluation note* Encounter Date Diagnosis [...] Ferritin May be candidate for Fe IV [facility] Other 10-18-2023 Evaluation note* Encounter Date Diagnosis Assessment Notes Treatment Notes Treatment Clinical Notes Aug, Radiation proctitis (ICD-10 - K62.7) Aug, Iron deficiency anemia due to chronic blood loss (ICD-10 - D50.0) [facility] Other 10-17-2023 NoteHNO ID: [id number] Author: Brannon Sung APRN.CRNA Service: ? 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 Author Type: Fellow Type: Progress Notes Filed: 08/29/2023 4:02 PM Note Text: Ms. Waddell is a 63 year old female who presents to the [facility] [place]. 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 Author Type: Registered Resp Therapist Type: Progress Notes Filed: 08/29/2023 9:52 AM Note Text: PULM FUNCTION SMARTBLOCK: Provider: Mike Presley MD Spirometry: 1 DLCO: 1 LV - Box: 1CAccess [facility] History and physical note* Elder Galan, BETTY.COMPRESSION MOLDING MACHINE OPERATOR - 08/29/2023 11:00 AM EDT COLON AND [...] of treatment plan: high documented in this encounterMer[facility]10-13-2023 NoteHNO ID: [id number] Author: Marshal Vasquez RT(R) Service: ? Author [...] BY: RT Tammy(R) August 29, 2023 9:10 [facility]10-13-2023 History of Present illness Narrative* Heidi Menard MD - 08/29/2023 10:00 AM EDT Images from the original note were not included. Ms. Waddell is a 63 year old female who presents to the [facility] [place]. 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 Hobbies:Biking Vacation: [place], [place] No significant exposure history except local [...] MULTIVITAMIN TAB^Take one(1) tablet daily.^Disp: ^Rfl: 0 UFJX9-WXV-RGF-FISH OIL-L.CASEI ORAL^Take by mouth once daily.^Disp: ^Rfl: [...] personally reviewed by me Data Reviewed from [facility] (in addition to that noted [...] MD Pulmonary and Critical Care Fellow [facility] [place] Staff note: I have personally interviewed and [...] Hilton Adame MD 08/29/2023 documented in this encounterMer[facility]10-13-2023 History of Present illness Narrative* Sveta Roman RRT - 08/29/2023 9:52 AM EDT PULM FUNCTION SMARTBLOCK: Provider: Mike Presley MD Spirometry: 1 DLCO: 1 LV - Box: 1 documented in this encounterMercy Health [facility] Hospital10-13-2023 History of Present illness Narrative* Marshal aVsquez RT(R) - 08/29/2023 9:00 AM EDT Radiology [...] 29, 2023 9:10 AM documented in this encounterMercy Health [facility] Hospital10-10-2023 NoteHNO ID: [id number] Author: Gilberto Beth Service: ? Author Type: ? Type: Progress Notes Filed: 08/26/2023 4:28 PM Note Text: [place] [facility] w dlco/lv [facility] History of Present illness Narrative* Gilberto Beth - 08/26/2023 4:16 PM EDT [place] to pair w dlco/lv on upcoming f/u visit documented in this encounterMercy Health [facility] Hospital10-06-2023 NoteHNO ID: [id number] Author: Nuvia Grewal RT(R) Service: Radiology Author Type: Data Warehousing Specialist Type: Progress Notes Filed: 08/22/2023 8:34 AM [...] BY: RT Seth(R) August 22, 2023 8:33 AMDavis Hospital And Medical [id number] History of Present illness Narrative* Nuvia Grewal [...] 22, 2023 8:33 AM documented in this encounterMercy Health [facility]09-18-2023 Evaluation note* Encounter Date Diagnosis Assessment [...] symptoms. Will initiate antibiotics and have called [facility]. Since her symptoms developed > 5 days ago, no Paxlovid has been prescribed Jul, Bronchitis, not specified as acute or chronic (ICD-10 - J40) Instructed to use Robitussin or Mucinex for cough, saline or Flonase NS for congestion, Tylenol for pain and fever. [facility] Other 09-05-2023 Miscellaneous Notes* Telephone Encounter - Divya Karimi - 07/22/2023 3:17 PM EDT Isabel Waddell accepts 09/01 and 09/02 dates for preop and surgery documented in this encounterMercy Health [facility] Hospital09-05-2023 Miscellaneous Notes* Telephone Encounter - Enid Baker - 07/22/2023 2:48 PM EDT [phone] Patient calling to reschedule her EUA. documented in this encounterMercy Health [facility] Hospital08-22-2023 Evaluation note* Encounter Date Diagnosis Assessment Notes Treatment Notes Treatment Clinical Notes Jun, SHERIF (generalized anxiety disorder) (ICD-10 - F41.1) [facility] Other 08-18-2023 History and physical note* South [...] regular bowel movements. 03/05/23 Juan Manuel Medina, COMPRESSION MOLDING MACHINE OPERATOR: Isabel Waddell is a 62 year old [...] 150 mg by mouth daily at bedtime. CFQH2-ODH-ZNS-FISH OIL-L.CASEI ORAL Take by mouth once daily. [...] Documents Reviewed/ordered: Review of prior notes from [facility] WORKING SUPERVISOR/ONC, pulmonary medicine Review of prior operative reports [...] of treatment plan: high documented in this encounterMercy Health Perry[facility] Hospital08-11-2023 NoteHNO ID: [id number] Author: Heidi Menard MD Service: ? Author Type: Fellow Type: Progress Notes Filed: 06/29/2023 8:14 AM Note Text: Ms. Waddell is a 63 year old female who presents to the [facility] [place]. Consultation requested by Self. 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 Silica: No significant exposure. Hemphill: No significant exposure. Organic HP antigen: No [...] Rectal, Enteric Tube, Stom (more content not included)...[facility]08-11-2023 NoteHNO ID: [id number] Author: Dayan Marley, FAMILIA Service: ? Author Type: Registered Resp Therapist Type: Progress Notes Filed: 06/27/2023 10:27 AM Note Text: PULM FUNCTION SMARTBLOCK: Provider: Pedro Rodarte MD Spirometry: 1 System: 3 - [id number] Clinic [facility]ucl[facility] Hospital08-11-2023 History of Present illness Narrative* Heidi Menard MD - 06/27/2023 10:29 AM EDT Images from the original note were not included. Ms. Waddell is a 63 year old female who presents to the [facility] [place]. Consultation requested by Self. 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 Silica: No significant exposure. Hemphill: No significant exposure. Organic HP antigen: No [...] 150 mg by mouth daily at bedtime. MZBM5-XFC-UZH-FISH OIL-L.CASEI ORAL Take by mouth once daily. [...] personally reviewed by me Data Reviewed from [facility] (in addition to that noted [...] MD Pulmonary and Critical Care Fellow [facility] [place] STAFF ATTENDING NOTE I have personally interviewed [...] Mike Thompson MD 06/29/2023 documented in this encounterMercy Health Perry[facility] Hospital08-11-2023 History of Present illness Narrative* Dayan Marley RRT - 06/27/2023 10:26 AM EDT PULM FUNCTION SMARTBLOCK: Provider: Pedro Rodarte MD Spirometry: 1 System: MC3 - [id number] documented in this encounterMercy Health Perrysburg Hospital07-07-2023 Evaluation note* Encounter Date Diagnosis Assessment [...] and feet daily for blisters and ulcerations. [facility] Other 06-27-2023 Evaluation note* Encounter Date Diagnosis Assessment Notes Treatment Notes Treatment Clinical Notes Apr, History of total right hip replacement (ICD-10 - Z96.641) [facility] Other 06-07-2023 Evaluation note* Encounter Date Diagnosis [...] F41.1) Healthy diet, exercise and keep active [facility] [facility] Other 2023 Evaluation note* Encounter Date Diagnosis Assessment Notes Treatment Notes Treatment Clinical Notes March, Mild intermittent asthma without complication (ICD-10 - J45.20) [facility] Other 05-05-2023 Evaluation note* Encounter Date Diagnosis Assessment Notes Treatment Notes Treatment Clinical Notes March, Dyspnea on exertion (ICD-10 - R06.09) [facility] Other 04-24-2023 Evaluation note* Encounter Date Diagnosis Assessment Notes Treatment Notes Treatment Clinical Notes Feb, Shortness of breath (ICD-10 - R06.02) Feb, Subacute cough (ICD-10 - R05.2) [facility] Other 04-19-2023 Instructions* Patient Instructions* Juan Manuel Medina APRN.COMPRESSION MOLDING MACHINE OPERATOR - 03/05/2023 9:47 AM EDT Images from the original note were not included. Thank you for seeing me in clinic today. As we discussed, my recommendations are as follows: 1.Colonoscopy If you have any questions about the above treatment plan, please do not hesitate to call the officeor send me a Loosecubest message. Bowel Preparation Instructions for: Miralax-Gatorade Preparations [...] If you do not have a responsible tractor driver (family member or friend) withyou to take you home, your exam cannot be done with sedation and will be cancelled. Please bring a list of all of your current medications, including any Zzgq-qku-Xnyzqno medications with you. Medications If you take [...] your exam. 2 10/2019 documented in this encounterMercy Health [facility]04-19-2023 History and physical note * Juan [...] Abs Lymph 1.00 - 4.00 k/uL 1.31 Pondera% % 11.1 Abs Pondera <0.87 k/uL 0.50 Eosin% % 3.1 Abs [...] 150 mg by mouth daily at bedtime. SVVY8-VOY-ACK-FISH OIL-L.CASEI ORAL Take by mouth once daily. [...] -radiation proctitis?? This note was dictated using Cardio control speech recognition software and may contain some errors that were a result of the program not accurately transcribing what was dictated. Juan Manuel Medina APRN.MONSERRAT documented in this encounterMercy Health [facility] Hospital03-10-2023 Evaluation note* Encounter Date Diagnosis Assessment Notes Treatment Notes Treatment Clinical Notes Jan, Acute bronchitis due to other specified organisms (ICD-10 - J20.8) Instructed to use Robitussin or Mucinex for cough, saline or Flonase NS for congestion, Tylenol for pain and fever. [facility] Other 03-06-2023 Evaluation note* Encounter Date Diagnosis [...] weeks for the cough to go away [facility] Other 02-17-2023 NoteHNO ID: [id number] Author: Henry Ramos MD Service: ? Author Type: Physician Type: Progress Notes Filed: 01/12/2023 11:27 PM Note Text: Gynecologic Oncology [facility] Follow up visit Date of service: 01/03/2023 [...] differentiation, FIGO grade 2. Neg LVSI, 13% IN pT1a (IA): Tumor limited to endometrium or invades less than 1/2 of the myometrium 05/25/2021 Vaginal biopsy Vagina, biopsy - Consistent with endometrioid adenocarcinoma (see comment). GZ/ka 05/28/2021 COMMENT The tumor cells are diffusely and strongly positive for immunohistochemical stain for Summit 8, supporting the above diagnosis. The patient [...] 150 mg by mouth daily at bedtime. MTPB4-VOR-ELM-FISH OIL-L.CASEI ORAL Take by mouth once daily. Lactobac no.41/Bifidobact no.7 (PROBIOTIC-10 ORAL) Take by mouth once daily. MULTIVITAMIN TAB Take (more content not included)...[facility] 01-03-2023 History of Present illness Narrative* Henry Ramos MD - 01/03/2023 3:20 PM EST Gynecologic Oncology [facility] Follow up visit Date of service: 01/03/2023 [...] differentiation, FIGO grade 2. Neg LVSI, 13% IN pT1a (IA): Tumor limited to endometrium or invades less than 1/2 of the myometrium 05/25/2021 Vaginal biopsy Vagina, biopsy - Consistent with endometrioid adenocarcinoma (see comment). THELMA/ka 05/28/2021 COMMENT The tumor cells are diffusely and strongly positive for immunohistochemical stain for Summit 8, supporting the above diagnosis. The patient [...] 150 mg by mouth daily at bedtime. UUSS2-MRG-SGL-FISH OIL-L.CASEI ORAL Take by mouth once daily. [...] improving. She has a trip planned to [facility] next week for 10 days. PHYSICAL [...] or swelling. Deep tendon reflexes are present Broiler Manager for exam: Gurpreet Villarreal APRN.CNP RESULTS: CA 125 (U/mL) Date Value 12/13/2021 9 06/04/2021 8 07/12/2019 15 No new results to review ASSESSMENT & PLAN: 05/25/2021-Dee Dee Carter APRN.COMPRESSION MOLDING MACHINE OPERATOR [place] endometrioid type endometrial adenocarcinoma, FIGO grade [...] review with PCP 05/30/2021- Dee Dee Carter APRN.COMPRESSION MOLDING MACHINE OPERATOR (distance health visit) 61 yo female with [...] her today already. Test vaginal lesion for ER/MI receptors See me September 19 for post [...] hyperthyroidism, advised follow up with PCP and Worship Leader. Ernesto Chacko APRN.COMPRESSION MOLDING MACHINE OPERATOR 03/13/2022 Recurrent Endometrial cancer with recurrence in [...] Recommend she start following with a [facility] tube knitter for her rectal bleeding. We will assistwith [...] 03, 2023 4:37 PM documented in this encounterMercy Health [facility] Hospital02-08-2023 Miscellaneous Notes* Telephone Encounter - Aretha [...] 12/25/2022 2:19 PM EST ----- Message from [place] sent at 12/25/2022 12:04 PM EST ----- Regarding: [place] Patient bleeding and clotting almost daily since Colonoscopy. September was the Colonoscopy. Concerned and would like to know if she should schedule an appointment. [phone] documented in this encounterMercy Health [facility] Hospital11-10-2022 Nurse Note* Francisca Gómez RN - [...] RN In Department: GASTROENTEROLOGY documented in this encounterMercy Health Perrysburg Hospital11-10-2022 Miscellaneous Notes* Sedation Documentation - Aretha Deluna RN - 09/26/2022 12:00 PM EST Grounding pad placed at right flank. Skin Intact. LOT#[id number]. documented in this encounterMercy Health Perrysburg Hospital11-03-2022 Miscellaneous Notes* Telephone Encounter - Kelly Ch MA - 09/19/2022 3:49 PM EDT Attempted to reach the patient at the contact number that they provided [phone] (home) . Unable to speak with patient so without identifying the patient the following information was left on their voice mail: Date of procedure, location and report time Prep instructions A message was left informing the patient/patient pharmacy sales representative they must have a responsible [...] Number to call with questions or concerns [phone] Number to call to cancel their procedure [phone] Kelly Ch MA documented in this encounterMercy Health Perrysburg Hospital09-21-2022 Instructions* Patient Instructions* Ernesto Chacko APRN.COMPRESSION MOLDING MACHINE OPERATOR - 08/07/2022 3:59 PM EDT Images from [...] If you do not have a responsible tractor driver (family member or friend) with you [...] your exam. 2 10/2019 documented in this encounterMercy Health Perrysburg Hospital09-21-2022 History of Present illness Narrative* Henry Ramos MD - 08/07/2022 3:20 PM EDT Gynecologic Oncology [facility] Follow up visit Date of service: 08/07/2022 [...] differentiation, FIGO grade 2. Neg LVSI, 13% IN pT1a (IA): Tumor limited to endometrium or invades less than 1/2 of the myometrium 05/25/2021 Vaginal biopsy Vagina, biopsy - Consistent with endometrioid adenocarcinoma (see comment). GZ/ka 05/28/2021 COMMENT The tumor cells are diffusely and strongly positive for immunohistochemical stain for Summit 8, supporting the above diagnosis. The patient [...] 150 mg by mouth daily at bedtime. [id number]-DHS-BAG-FISH OIL-L.CASEI ORAL Take by mouth once daily. [...] groin. LOWER EXTREMITIES: No swelling or edema. Broiler Manager for exam: Promise Mclaughlin MA RESULTS: 05/25/2021 - VAGINAL BIOPSY Vagina, biopsy - Consistent with endometrioid adenocarcinoma (see comment). THELMA/fiorella 05/28/2021 COMMENT The tumor cells are diffusely and strongly positive for immunohistochemical stain for Summit 8, supporting the above diagnosis. The patient [...] dedicated report for findings in the abdomen Plant Supervisor (topogram) images: None CA 125 (U/mL) Date Value 12/13/2021 9 06/04/2021 8 07/12/2019 15 ASSESSMENT & PLAN: 05/25/2021-Dee Dee Carter APRN.COMPRESSION MOLDING MACHINE OPERATOR [place] endometrioid type endometrial adenocarcinoma, FIGO grade [...] review with PCP 05/30/2021- Dee Dee Carter APRN.COMPRESSION MOLDING MACHINE OPERATOR (distance health visit) 61 yo female with [...] her today already. Test vaginal lesion for ER/MI receptors See me September 19 for post [...] hyperthyroidism, advised follow up with PCP and Worship Leader. Ernesto Chacko APRN.COMPRESSION MOLDING MACHINE OPERATOR 03/13/2022 Recurrent Endometrial cancer with recurrence in [...] direction and in the presence of Henry Ramso MD. I, Henry Ramos MD, agree that the above note, as documented by my scribe, accurately describes my encounter with the patient today. Electronically signed:Blu Markham, Henry Ramos MD, Physician, August 07, 2022 4:19 PM [facility] History of Present illness Narrative* Henry Ramos MD - 03/13/2022 2:50 PM EDT Gynecologic Oncology [facility] Follow up visit Date of service: 03/13/2022 [...] differentiation, FIGO grade 2. Neg LVSI, 13% IN pT1a (IA): Tumor limited to endometrium or invades less than 1/2 of the myometrium 05/25/2021 Vaginal biopsy Vagina, biopsy - Consistent with endometrioid adenocarcinoma (see comment). GZ/ka 05/28/2021 COMMENT The tumor cells are diffusely and strongly positive for immunohistochemical stain for Summit 8, supporting the above diagnosis. The patient [...] 150 mg by mouth daily at bedtime. LWRD3-ANO-VPI-FISH OIL-L.CASEI ORAL Take by mouth once daily. [...] absent LOWER EXTREMITIES: No swelling or edema. Broiler Manager for exam: [facility] RESULTS: 05/25/2021 - VAGINAL BIOPSY Vagina, biopsy - Consistent with endometrioid adenocarcinoma (see comment). GZ/ka 05/28/2021 COMMENT The tumor cells are diffusely and strongly positive for immunohistochemical stain for Summit 8, supporting the above diagnosis. The patient [...] dedicated report for findings in the abdomen Plant Supervisor (topogram) images: None CA 125 (U/mL) Date Value 12/13/2021 9 06/04/2021 8 07/12/2019 15 ASSESSMENT & PLAN: 05/25/2021-Dee Dee Carter APRN.COMPRESSION MOLDING MACHINE OPERATOR IA endometrioid type endometrial adenocarcinoma, FIGO grade [...] review with PCP 05/30/2021- Dee Dee Carter APRN.COMPRESSION MOLDING MACHINE OPERATOR (distance health visit) 61 yo female with [...] her today already. Test vaginal lesion for ER/MI receptors See oh September 19 for post treatment exam. 11/28/2021 [...] hyperthyroidism, advised follow up with PCP and Worship Leader. Ernesto Chacko APRN.COMPRESSION MOLDING MACHINE OPERATOR 03/13/2022 Recurrent Endometrial cancer with recurrence in [...] Past Histories independently gathered by the clinical help desk support and the remaining scribed note accurately describes my personal service to the patient. [facility] Diagnosis Dizziness- Primary Dizziness and giddiness Dehydration documented in this encounter [employer]: evaluation note* Diagnosis Recurrent carcinoma of endometrium (HCC)- Primary Malignant neoplasm of corpus uteri, except isthmus Vaginal atrophy Postmenopausal atrophic vaginitis Foreshortening of vagina [facility] Diagnosis Recurrent carcinoma of endometrium (HCC)- Primary Malignant neoplasm of corpus uteri, except isthmus Radiation proctitis Other specified disorder of rectum and anus Foreshortening of vagina Endometrial cancer (HCC) Malignant neoplasm of corpus uteri, except isthmus Vaginal atrophy Postmenopausal atrophic vaginitis Rectal bleeding Hemorrhage of rectum and anus documented in this encounter [facility] note* Diagnosis History of thyroid disease- Primary Personal history of other endocrine, metabolic, and immunity disorders Rectal bleeding Hemorrhage of rectum and anus [facility] Diagnosis Recurrent carcinoma of endometrium (HCC)- Primary Malignant neoplasm of corpus uteri, except isthmus Radiation proctitis Other specified disorder of rectum and anus Blood per rectum Hemorrhage of rectum and anus documented in this encounter [facility] noteNo [employer] Other Evaluation note* Diagnosis Rectal bleeding- Primary Hemorrhage of rectum and anus [facility] Diagnosis Radiation proctitis- Primary Other specified disorder of rectum and anus [facility] Diagnosis Dyspnea, unspecified type- Primary [facility] Diagnosis 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) [facility] Diagnosis Radiation proctitis- Primary Other specified disorder of rectum and anus [facility] Diagnosis Endometrial cancer (HCC)- Primary Malignant neoplasm of corpus uteri, except isthmus Radiation proctitis Other specified disorder of rectum and anus Radiation proctitis Other specified disorder of rectum and anus [facility] Diagnosis Radiation proctitis- Primary Other specified disorder of rectum and anus [facility] Diagnosis ILD (interstitial lung disease) (HCC)- Primary Postinflammatory pulmonary fibrosis Radiation proctitis Other specified disorder of rectum and anus [facility] Diagnosis ILD (interstitial lung disease) (HCC) Postinflammatory pulmonary fibrosis Radiation proctitis Other specified disorder of rectum and anus [facility] Diagnosis Interstitial pulmonary disease (HCC) Postinflammatory pulmonary fibrosis Radiation proctitis Other specified disorder of rectum and anus [facility] Diagnosis Dyspnea and respiratory abnormalities- Primary Other dyspnea and respiratory abnormality Calcified nodule Localized superficial swelling, mass, or lump Iron deficiency anemia due to chronic blood loss Iron deficiency anemia secondary to blood loss (chronic) Radiation proctitis Other specified disorder of rectum and anus [facility] Diagnosis Dyspnea, unspecified type Radiation proctitis Other specified disorder of rectum and anus documented in [facility]* Diagnosis Pre-op evaluation- Primary Preoperative examination, unspecified Radiation proctitis Other specified disorder of rectum and anus documented in this encounter [facility] note* Diagnosis Interstitial pulmonary disease (HCC) Postinflammatory pulmonary fibrosis documented in this encounter [facility] note* Diagnosis Radiation proctitis- Primary Other specified disorder of rectum and anus Endometrial cancer (HCC) Malignant neoplasm of corpus uteri, except isthmus documented in this encounter [facility] general Narrative - Reported* Type Description Date Medical History menopause Medical History endometrial cancer hx Surgical History Bilateral Knee Scope Surgical History Bilateral Shoulder Scope Surgical History Bilateral Carpal Tunnel Surgical History x 3 Surgical History Pituatary Tumor Surgical History hysterectomy Surgical History right thumb excision of trapezi um 09/14/2020 [employer] Other [employer] general Narrative - Reported* Type Description Date Medical History menopause Medical History endometrial cancer hx Surgical History Bilateral Knee Scope Surgical History Bilateral Shoulder Scope Surgical History Bilateral Carpal Tunnel Surgical History x 3 Surgical History Pituatary Tumor Surgical History hysterectomy Surgical History right thumb excision of trapezi um 09/14/2020 Hospitalization History see surgical history [employer] Other [employer] general Narrative - Reported* Type Description Date Medical History menopause Medical History endometrial cancer hx Medical History Dilated Cardiomyopathy Surgical History Bilateral Knee Scope Surgical History Bilateral Shoulder Scope Surgical History Bilateral Carpal Tunnel Surgical History x 3 Surgical History Pituatary Tumor Surgical History hysterectomy Surgical History right thumb excision of trapezi um 09/14/2020 Hospitalization History see surgical history [employer] Other [employer] general Narrative - Reported* Type Description Date Medical History menopause Medical History endometrial cancer hx Medical History Dilated Cardiomyopathy Surgical History Bilateral Knee Scope Surgical History Bilateral Shoulder Scope Surgical History Bilateral Carpal Tunnel Surgical History x 3 Surgical History Pituatary Tumor Surgical History hysterectomy Surgical History right thumb excision of trapezi um 09/14/2020 Surgical History Sigmoidoscopy 08/2023 Hospitalization History see surgical history [employer] Other [employer] general Narrative - Reported* Type Description Date [...] Sigmoidoscopy 08/2023 Hospitalization History see surgical history [employer] Other Hospital Discharge instructions* Attachments The following attachments cannot be sent through Care Everywhere. * Dehydration (Tajik) * Oral Rehydration (Tajik) [facility]: reason for referral (narrative)* Outpatient Procedure (Routine) - Closed Specialty Diagnoses / Procedures Referred By Contac t Referred To Contact [facility] Diagnoses Rectal bleeding Procedures COLONOSCOPY SCREENING COLONOSCOPY FLX DX W/COLLJ SPEC WHEN Ernesto Noble APRN.CNP [address] [place] [address] [address] Referral ID Status Reason Start Date Expiration Date V isits Requested Visits Authorized [id number] Closed Auto-Generate d Referral 08/07/2022 08/07/2023 1 1 [facility] for referral (narrative)* Outpatient Procedure (Routine) - Pending Review Specialty Diagnoses / Procedures Referred By Contac t Referred To Contact [facility] [place] Diagnoses Rectal bleeding Procedures COLONOSCOPY (THERAPEUTIC) COLONOSCOPY FLX ABLATION TUMOR POLYP/OTHER Juan Manuel Mendoza APRN.COMPRESSION MOLDING MACHINE OPERATOR [address] [place] [address] [place] [address] [address] Referral ID Status Reason Start Date Expiration Date Visits Requested Visits Authorized [id number] Pending Review Auto-Generat ed Referral 03/05/2023 03/05/2024 1 1 [facility] for referral (narrative)* Outpatient Procedure (Routine) - Authorized Specialty Diagnoses / Procedures Referred By Contac t Referred To Contact [facility] Diagnoses Other secondary pulmonary hypertension (HCC) Procedures ECHO ECHO TTHRC R-T 2D W/WOM-MODE COMPL SPEC&COLR D Mike Presley MD [address] [place] [address] [facility] [address] [place] [address] Referral ID Status Reason Start Date Expiration Date Visits Requested Visits Authorized [id number] Authorized Auto-Generat ed Referral 06/27/2023 06/26/2024 1 1 * Diagnostic Procedure Only (Routine) - Pending Review Specialty Diagnoses / Procedures Referred By Kelly alberts Referred To Contact [facility] Diagnoses Other secondary pulmonary hypertension (HCC) Procedures NM LUNG VENT / PERF VQ PULMONARY VENTILATION & PERFUSION IMAGING Mike Presley MD [address] [place] [address] [facility] [address] [place] [address] Referral ID Status Reason Start Date Expiration Date Visits Requested Visits Authorized [id number] Pending Review Auto-Generat ed Referral 06/27/2023 07/26/2024 1 1 * Outpatient Procedure (Routine) - Pending Review Specialty Diagnoses / Procedures Referred By Kelly alberts Referred To [facility] Diagnoses Interstitial pulmonary disease (HCC) Procedures LUNG VOLUMES Mike Presley MD [address] [place] [address] [facility] [address] [place] [address] Referral ID Status Reason Start Date Expiration Date Visits Requested Visits Authorized [id number] Pending Review Auto-Generat ed Referral 06/27/2023 07/26/2024 1 1 * Outpatient Procedure (Routine) - Authorized Specialty Diagnoses / Procedures Referred By Kelly alberts Referred To Contact [facility] Diagnoses Interstitial pulmonary disease (HCC) Procedures LUNG DIFFUSION CAPACITY (DLCO) DIFFUSING CAPACITY Mike Presley MD [address] [place] [address] [address] [address] Referral ID Status Reason Start Date Expiration Date Visits Requested Visits Authorized [id number] Authorized Auto-Generat ed Referral 06/27/2023 07/26/2024 1 1 * MRI/CT (Routine) - Authorized Specialty Diagnoses / Procedures Referred By Kelly alberts Referred To Contact CT IMAGING Diagnoses Interstitial pulmonary disease (HCC) Procedures CT CHEST WO IVCON DIAGNOSTIC COMPUTED TOMOGRAPHY THORAX W/O CNTRST Mike Presley MD [address] [place] [address] [address] [facility] Referral ID Status Reason Start Date Expiration Date Visits Requested Visits Authorized [id number] Authorized Auto-Generat ed Referral 06/27/2023 07/26/2024 1 1 [facility] for referral (narrative)* Outpatient Procedure (Routine) - Authorized Specialty Diagnoses / Procedures Referred By Kelly alberts Referred To Contact [facility] Diagnoses ILD (interstitial lung disease) (HCC) Procedures SPIROMETRY BASELINE ONLY SPMTRY W/VC EXPIRATORY BERNIE W/WO MXML VOL VNTJ Mike Presley MD [address] [place] [address] [facility] [address] [place] [address] Referral ID Status Reason Start Date Expiration Date Visits Requested Visits Authorized [id number] Authorized Auto-Generat ed Referral 09/24/2024 1 1 [facility] for visit Narrative* Outpatient Procedure (Routine) - Closed Specialty Diagnoses / Procedures Referred By Contac t Referred To Contact [facility] Diagnoses Rectal bleeding Procedures COLONOSCOPY SCREENING COLONOSCOPY FLX DX W/COLLJ SPEC WHEN PFErnesto Iglesias APRN.COMPRESSION MOLDING MACHINE OPERATOR [address] [place] [address] [facility] [address] [place] [address] Referral ID Status Reason Start Date Expiration Date V isits Requested Visits Authorized [id number] Closed Auto-Generate d Referral 08/07/2022 08/07/2023 1 1 [facility] Summary Purpose Family History No Family History Records FoundNo Family History Records FoundNo Family History Records FoundNo Family History Records FoundNo Family History Records FoundNo Family History Records FoundNo Family History Records Found Advance Directives Documents on File Type Date Recorded Patient Field Service Poultry Technician 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 Advance Directive(s) 08/12/2019 10:47 AM Advance Directive(s) 07/28/2019 9:20 AM Documents on File Type Date Recorded Patient Field Service Poultry Technician 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 Advance Directive(s) 07/28/2019 9:20 AM Documents on File Type Date Recorded Patient Field Service Poultry Technician 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 Advance Directive(s) 07/28/2019 9:20 AM Reason for Referral Specialty Diagnoses / Procedures Referred By Contac t Referred To Contact Gastroenterology Diagnoses Rectal bleeding Procedures CONSULT TO GASTROENTEROLOGY OFFICE/OUTPATIENT [facility] 60-74 MINUTES Ernesto Chacko APRN.COMPRESSION MOLDING MACHINE OPERATOR [address] [place] [address] Referral ID Status Reason Start Date Expiration Date Visits Requested Visits Authorized [id number] Authorized PCP Requested Referral 08/07/2022 08/07/2023 1 1 Specialty Diagnoses / Procedures Referred By Contac t Referred To Contact [facility] Diagnoses Rectal bleeding Procedures COLONOSCOPY SCREENING COLONOSCOPY FLX DX W/COLLJ SPEC WHEN PFErnesto Iglesias APRN.COMPRESSION MOLDING MACHINE OPERATOR [address] [place] [address] [facility] [address] [place] [address] Referral ID Status Reason Start Date Expiration Date Visits Requested Visits Authorized [id number] Pending Review Auto-Generat ed Referral 08/07/2022 08/07/2023 1 1 Specialty Diagnoses / Procedures Referred By Kelly alberts Referred To Contact CT IMAGING Diagnoses Interstitial pulmonary disease (HCC) Procedures CT CHEST WO IVCON DIAGNOSTIC COMPUTED TOMOGRAPHY THORAX W/O CNTRST Mike Presley MD [address] [place] [address] [place] [address] Referral ID Status Reason Start Date Expiration Date V isits Requested Visits Authorized [id number] Closed Auto-Generate d Referral 06/27/2023 07/26/2024 1 1 Reason Iron deficiency anem ia Diagnosis 1 Iron deficiency anem ia due to chronic blood loss (D50.0) [facility]erral [facility] Referring Provider First Name Roland Referring Provider Last Name Maggie Referring Provider Specialty Internal Me dicine Referred Organization [facility] Referred Provider NGA TATUM Referred Address [address] [place], [place],[address] Referred Provider Specialty Hematology Referral Priority Routine General Notes Mrs. Waddell is being r eferred for symptomatic iron deficiency anemia. 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 She has completed endoscopic treatment for her chronic bleeding and has received 2 units of PRBC [facility]. I am referring [...] DATE CREATED AUTHOR AUTHOR'S ORGANIZ ATION 03/20/2022 [facility] DATE CREATED AUTHOR AUTHOR'S ORGANIZ ATION 03/28/2023 [facility] DATE CREATED AUTHOR AUTHOR'S ORGANIZ ATION 08/25/2023 [facility] DATE CREATED AUTHOR AUTHOR'S ORGANIZ ATION 10/04/2023 [facility] EPIC DATE CREATED AUTHOR AUTHOR'S ORGANIZ ATION 10/09/2023 [facility] Reason for Visit (unrecogniz ed section [...] Rectal bleeding Procedures CONSULT TO GASTROENTEROLOGY OFFICE/OUTPATIENT [facility] 60-74 MINUTES Ernesto Chacko APRN.COMPRESSION MOLDING MACHINE OPERATOR [address] [place] [address] Referral ID Status Reason Start Date Expiration Date V isits Requested Visits Authorized [id number] Closed PCP Requested Referral 08/07/2022 08/07/2023 1 1 Reason Comments Spirometry Specialty Diagnoses / Procedures Referred By Contsarika t Referred To Contact [facility] Diagnoses Dyspnea, unspecified type Procedures SPIROMETRY WITH DILATOR IF OBSTRUCTED BRNCDILAT RSPSE SPMTRY PRE&POST-BRNCDILAT ADMN Pedro Rodarte MD [address] [place] [address] [facility] [address] [place] [address] Referral ID Status Reason Start Date Expiration Date V isits Requested Visits Authorized [id number] Closed Auto-Generate d Referral 05/23/2023 06/21/2024 1 1 Reason Comments New Reason Comments New Radiation proctitis Specialty Diagnoses / Procedures Referred By Contac t Referred To Contact Colon and Rectal Surgery Diagnoses Radiation proctitis Procedures CONSULT TO COLO-RECTAL SURGERY OFFICE/OUTPATIENT NEW HIGH MDM 60-74 MINUTES Gurpreet Villarreal APRN.COMPRESSION MOLDING MACHINE OPERATOR [address] [place] [address] [place] DO [address] [place] [address] Referral ID Status Reason Start Date Expiration Date V isits Requested Visits Authorized [id number] Closed PCP Requested Referral 05/16/2023 05/15/2024 1 1 Reason Comments Patient Update Specialty Diagnoses / Procedures Referred By Contac t Referred To Contact [facility] Diagnoses ILD (interstitial lung disease) (HCC) Procedures SPIROMETRY BASELINE ONLY SPMTRY W/VC EXPIRATORY BERNIE W/WO MXML VOL VNTJ Mike Presley MD [address] [place] [address] [facility] [address] [place] [address] Referral ID Status Reason Start Date Expiration Date V isits Requested Visits Authorized [id number] Closed Auto-Generate d Referral 08/26/2023 09/24/2024 1 1 Specialty Diagnoses / Procedures Referred By Contac t Referred To [facility] Diagnoses Interstitial pulmonary disease (HCC) Procedures LUNG DIFFUSION CAPACITY (DLCO) DIFFUSING CAPACITY Mike Presley MD [address] [place] [address] [address] [address] Referral ID Status Reason Start Date Expiration Date V isits Requested Visits Authorized [id number] Closed Auto-Generate d Referral 06/27/2023 07/26/2024 1 1 Reason Comments Radio Gen A21 Reason Comments Pre-Op Exam Specialty Diagnoses / Procedures Referred By Contac t Referred To Contact CT IMAGING Diagnoses Interstitial pulmonary disease (HCC) Procedures CT CHEST WO IVCON DIAGNOSTIC COMPUTED TOMOGRAPHY THORAX W/O CNTRST Mike Presley MD [address] [place] [address] [place] [address] Referral ID Status Reason Start Date Expiration Date V isits Requested Visits Authorized [id number] Closed Auto-Generate d Referral 06/27/2023 07/26/2024 1 [...] or prosecute any alcohol or drug abuse patient.[facility] the event this information is protected by the Federal Confidentiality of Alcohol and Drug Abuse Patient Records regulations: The Federal rules restrict any use of the information to criminally investigate or prosecute any alcohol or drug abuse patient.[facility] the event this information is protected by the Federal Confidentiality of Alcohol and Drug Abuse Patient Records regulations: The Federal rules restrict any use of the information to criminally investigate or prosecute any alcohol or drug abuse patient.[facility] the event this information is protected by the Federal Confidentiality of Alcohol and Drug Abuse Patient Records regulations: The Federal rules restrict any use of the information to criminally investigate or prosecute any alcohol or drug abuse patient.[facility] Hospital[facility] the event this information is protected by the Federal Confidentiality of Alcohol and Drug Abuse Patient Records regulations: The Federal rules restrict any use of the information to criminally investigate or prosecute any alcohol or drug abuse patient.[facility] Hospital[facility] the event this information is protected by the Federal Confidentiality of Alcohol and Drug Abuse Patient Records regulations: The Federal rules restrict any use of the information to criminally investigate or prosecute any alcohol or drug abuse patient.[facility] Hospital[facility] the event this information is protected by the Federal Confidentiality of Alcohol and Drug Abuse Patient Records regulations: The Federal rules restrict any use of the information to criminally investigate or prosecute any alcohol or drug abuse patient.[facility] Hospital[facility] the event this information is protected by the Federal Confidentiality of Alcohol and Drug Abuse Patient Records regulations: The Federal rules restrict any use of the information to criminally investigate or prosecute any alcohol or drug abuse patient.[facility] Hospital[facility] the event this information is protected by the Federal Confidentiality of Alcohol and Drug Abuse Patient Records regulations: The Federal rules restrict any use of the information to criminally investigate or prosecute any alcohol or drug abuse patient.[facility] Hospital[facility] the event this information is protected by the Federal Confidentiality of Alcohol and Drug Abuse Patient Records regulations: The Federal rules restrict any use of the information to criminally investigate or prosecute any alcohol or drug abuse patient.[facility] Hospital[facility] the event this information is protected by the Federal Confidentiality of Alcohol and Drug Abuse Patient Records regulations: The Federal rules restrict any use of the information to criminally investigate or prosecute any alcohol or drug abuse patient.[facility] HospitalIn the event this information is protected by the Federal Confidentiality of Alcohol and Drug Abuse Patient Records regulations: The Federal rules restrict any use of the information to criminally investigate or prosecute any alcohol or drug abuse patient.[facility] HospitalIn the event this information is protected by the Federal Confidentiality of Alcohol and Drug Abuse Patient Records regulations: The Federal rules restrict any use of the information to criminally investigate or prosecute any alcohol or drug abuse patient.[facility] [facility] HospitalIn the event this information is protected by the Federal Confidentiality of Alcohol and Drug Abuse Patient Records regulations: The Federal rules restrict any use of the information to criminally investigate or prosecute any alcohol or drug abuse patient.[facility] HospitalIn the event this information is protected by the Federal Confidentiality of Alcohol and Drug Abuse Patient Records regulations: The Federal rules restrict any use of the information to criminally investigate or prosecute any alcohol or drug abuse patient.[facility] HospitalIn the event this information is protected by the Federal Confidentiality of Alcohol and Drug Abuse Patient Records regulations: The Federal rules restrict any use of the information to criminally investigate or prosecute any alcohol or drug abuse patient.[facility] HospitalIn the event this information is protected by the Federal Confidentiality of Alcohol and Drug Abuse Patient Records regulations: The Federal rules restrict any use of the information to criminally investigate or prosecute any alcohol or drug abuse patient.[facility] HospitalIn the event this information is protected by the Federal Confidentiality of Alcohol and Drug Abuse Patient Records regulations: The Federal rules restrict any use of the information to criminally investigate or prosecute any alcohol or drug abuse patient.[facility] HospitalIn the event this information is protected by the Federal Confidentiality of Alcohol and Drug Abuse Patient Records regulations: The Federal rules restrict any use of the information to criminally investigate or prosecute any alcohol or drug abuse patient.[facility] HospitalIn the event this information is protected by the Federal Confidentiality of Alcohol and Drug Abuse Patient Records regulations: The Federal rules restrict any use of the information to criminally investigate or prosecute any alcohol or drug abuse patient.[facility] HospitalIn the event this information is protected by the Federal Confidentiality of Alcohol and Drug Abuse Patient Records regulations: The Federal rules restrict any use of the information to criminally investigate or prosecute any alcohol or drug abuse patient.[facility] HospitalIn the event this information is protected by the Federal Confidentiality of Alcohol and Drug Abuse Patient Records regulations: The Federal rules restrict any use of the information to criminally investigate or prosecute any alcohol or drug abuse patient.[facility] HospitalIn the event this information is protected by the Federal Confidentiality of Alcohol and Drug Abuse Patient Records regulations: The Federal rules restrict any use of the information to criminally investigate or prosecute any alcohol or drug abuse patient.[facility] HospitalIn the event this information is protected by the Federal Confidentiality of Alcohol and Drug Abuse Patient Records regulations: The Federal rules restrict any use of the information to criminally investigate or prosecute any alcohol or drug abuse patient.[facility] Care Teams (unrecognized sec tion and content) Steam Hand Relationship Specialty Start Date End Date Roland Serrano DO PCP - General 09/21/07 Kizzy Galloway RN Specialty Personnel Supervisor Radiation Oncology 06/12/21 Steam Hand Relationship Specialty Start Date End Date Roland Serrano DO PCP - General 09/21/07 Kizzy Galloway RN [address] [place] [id number] Specialty Personnel Supervisor Radiation Oncology 06/12/21 Steam Hand Relationship Specialty Start Date End Date Roland Serrano, DO PCP - General 09/21/07 Kizzy Galloway RN [address] [place] [address] 83590 Specialty Personnel Supervisor Radiation Oncology 06/12/21 Steam Hand Relationship Specialty Start Date End Date Roland Serrano DO PCP - General 09/21/07 Kizzy Galloway RN [address] [place] [address] 96367 Specialty Personnel Supervisor Radiation Oncology 06/12/21 Steam Hand Relationship Specialty Start Date End Date Roland Serrano DO PCP - General 09/21/07 Kizzy Galloway RN [address] [place] [address] 82129 Specialty Personnel Supervisor Radiation Oncology 06/12/21 Steam Hand Relationship Specialty Start Date End Date Roland Serrano DO PCP - General 09/21/07 Kzizy Galloway RN [address] [place] [address]30 Specialty Personnel Supervisor Radiation Oncology 06/12/21 Steam Hand Relationship Specialty Start Date End Date Roland Serrano DO PCP - General 09/21/07 Kizzy Galloway RN [address] [place] [address] 17989 Specialty Personnel Supervisor Radiation Oncology 06/12/21 Steam Hand Relationship Specialty Start Date End Date Roland Serrano DO PCP - General 09/21/07 Kizzy Gallow[place] [id number] [place] [address] 9[address] Specialty Personnel Supervisor Radiation Oncology 06/12/21 Steam Hand Relationship Specialty Start Date End Date Roland Serrano DO PCP - General 09/21/07 Kizzy Galloway RN [id number] [place] [address] 89084 Specialty Personnel Supervisor Radiation Oncology 06/12/21 Steam Hand Relationship Specialty Start Date End Date Roland Serrano DO PCP - General 09/21/07 Kizzy Galloway RN [address] [place] [address] 73441 Specialty Personnel Supervisor Radiation Oncology 06/12/21 Steam Hand Relationship Specialty Start Date End Date Roland Serrano DO PCP - General 09/21/07 Kizzy Galloway RN [address] [place] [address] 76676 Specialty Personnel Supervisor Radiation Oncology 06/12/21 Steam Hand Relationship Specialty Start Date End Date Roland Serrano DO PCP - General 09/21/07 [place] [address] [place] [address] Specialty Personnel Supervisor Radiation Oncology 06/12/21 Steam Hand Relationship Specialty Start Date End Date Roland Serrano DO PCP - General 09/21/07 [place] [address] [place] [address] Specialty Personnel Supervisor Radiation Oncology 06/12/21 Steam Hand Relationship Specialty Start Date End Date Roland Serrano DO PCP - General 09/21/07 [place] [address] [place] [address] Specialty Personnel Supervisor Radiation Oncology 06/12/21 Steam Hand Relationship Specialty Start Date End Date Roland Serrano DO PCP - General 09/21/07 Kizzy Galloway RN [address] [place] [address]32[address] Specialty Personnel Supervisor Radiation Oncology 06/12/21 Steam Hand Relationship Specialty Start Date End Date Roland Serrano DO PCP - General 09/21/07 Kizzy Galloway RN [address] [place] [address] 11573 Specialty Personnel Supervisor Radiation Oncology 06/12/21 Steam Hand Relationship Specialty Start Date End Date Roland Serrano DO PCP - General 09/21/07 Kizzy Galloway RN [address] [place] [address] 46079 Specialty Personnel Supervisor Radiation Oncology 06/12/21 Steam Hand Relationship Specialty Start Date End Date Roland Serrano DO PCP - General 09/21/07 Kizzy Galloway RN [address] [place] [address] 46674 Specialty Personnel Supervisor Radiation Oncology 06/12/21 Steam Hand Relationship Specialty Start Date End Date Roland Serrano DO PCP - General 09/21/07 [place] [address] [place] [id number] Specialty Personnel Supervisor Radiation Oncology 06/12/21 FOR RECORDS PERTAINING TO [...] BE BASED ON THE PRIMARY CLINICAL RECORDS. [facility]. provides no warranty or guarantee of the accuracy or completeness of information in this document.
== END 2024-01-20 10:37 | disposition home or self-care (01) ==
LOC: EC 10:36
PROVIDERS: PCP Internal Medicine; Visit Provider Podiatrist Foot & Ankle Surgery
DX: M79.672 Pain in left foot (principal); M25.572 Pain in left ankle and joints of left foot; M79.669 Pain in unspecified lower leg; M79.605 Pain in left leg
CPT/HCPCS: 73590; 73610; 73630

== ENCOUNTER 2024-03-19 07:59 | Outpatient (OUT) | payer BC, SELFPAY ==
--- NOTE | 2024-03-19 08:00 | NM_ITS ---
[facility] [place] [id number] Patient Name: JOSEPHINE STOVER MRN: [id number] date: 1960 Sex: F Assigned Patient Location: [place] Current Patient Location: [place] Accession/Order Number: [id number] Exam Date: 03/19/2024 08:00 Report Date: 03/19/2024 12:06 At the request of: MARY SANCHEZ Procedure: MA bone 3 phase EXAMINATION: MA bone 3 phase HISTORY: ACUTE PAIN OF RIGHT HIP, R/O PREMATURE PROSTHETIC LOOSENING COMPARISON: 02/13/2024 plain x-ray TECHNIQUE: 23.9 mCi Technetium 99m MDP was injected intravenously followed by acquisition of dynamic flow, immediate blood pool, and delayed static images. FINDINGS: IMAGED AREA: Pelvis FLOW PHASE: Normal. BLOOD POOL PHASE: Right hip photopenia consistent with arthroplasty DELAYED IMAGES: Right hip photopenic consistent with arthroplasty. No abnormal periprosthetic activity in the acetabulum. Mild increased activity identified in the proximal right femoral diaphysis likely related to marrow compaction from the femoral stem component OTHER: Negative. MA/MA bone 3 phase IMPRESSION: No abnormal activity to suggest prosthetic loosening Electronically authenticated by: JACOB IYER Date: 03/19/2024 12:06
--- OUTSIDE RECORDS SUMMARY | 2024-03-19 08:09 | XMS_ITS | CCD ---
Author Organization [facility] Care Team Providers Care Compliance Examiner Name Role Phone Roland Serrano DO Primary [...] SALOMON Attending Unavailable AYAZ, SALOMON Consulting Unavailable AYAZ, SALOMON Admitting Unavailable BALL, DR YOUSSEF Primary Care Unavailable MAGGIE, DR YOUSSEF Admitting Unavailable MAGGIE, DR YOUSSEF Attending Unavailable MAGGIE, DR YOUSSEF Consulting Unavailable ZIBRANDI, DR HENRY Lr Consulting Unavailable SALOMON JACOME Attending Unavailable MAGGIE, DR YOUSSEF Primary Care Unavailable AYAZ, SALOMON Consulting Unavailable SALOMON JACOME Admitting Unavailable BALL, DR YOUSSEF Admitting Unavailable BALL, DR YOUSSEF Attending Unavailable BALL, DR YOUSSEF Consulting Unavailable MAGGIE, DR YOUSSEF Primary Care Unavailable MAGGIE, DR YOUSSEF Primary Care Unavailable MAGGEI, DR YOUSSEF Admitting Unavailable MAGGIE, DR YOUSSEF Attending Unavailable BALL, DR YOUSSEF Consulting Unavailable WEST, DR JACOB Parrish Consulting Unavailable Galloway RN, Kizzy Unavailable BALL, ROLAND E Primary Care Unavailable LESSA CISNEROS JAY, MIKE Referring Unava ilable BALL, ROLAND E Primary Care Unavailable JAYANT, SOUTH Philippe Attending Unavailable BALL, ROLAND E Primary Care Unavailable BALL, ROLAND E Primary Care Unavailable JAYANT, SE Referring Unavailable BALL, ROLAND E Primary Care Unavailable BALL, ROLAND E Primary Care Unavailable LESSA CISNEROS JAY, MIKE Referring Unava ilable BALL, ROLAND E Primary Care Unavailable JAYANT, SOUTH Philippe Referring Unavailable ELDER GALAN Attending Unavailable BALL, ROLAND E Primary Care Unavailable JAYANT, SE Referring Unavailable BALL, ROLAND E Primary Care Unavailable RACHELHENRY Lr Attending Unavailable BALL, ROLAND E Primary Care Unavailable GURPREET VILLARREAL Referring Unavailable JAYANT, SOUTH Philippe Attending Unavailable [...] ilable BALL, ROLAND E Primary Care Unavailable SASHEIDI VILLATORO Attending Unavailab le BALL, ROLAND E Primary Care Unavailable BALL, ROLAND E Primary Care Unavailable JAYANT, SOUTH Philippe Referring Unavailable BALL, ROLAND E Primary Care Unavailable HENRY RAMOS Referring Unavailable BALL, ROLAND E Primary Care Unavailable ERNESTO CHACKO Referring Unavailable HARESH MEDINALE Attending Unavailable BALL, ROLAND E Primary Care Unavailable SASHEIDI VILLATORO Attending Unavailab LEIGH Whitehead Attending Unavailable JR. GATICA GEORGE C Attending Unavaila chandni GATICA JR., GEORGE C Referring Unavaila chandni GATICA JR., MARY Chase Attending Unavaila ble Allergies Allergy Classification Reported Allergen(s) Allergy Type Date of Onset Reaction(s) Facility (6 sources) patient allergy list reviewed by nurse or physicia Propensity to adverse reactions 8 Comment:Done [facility] Other (6 sources) Allergies Reconciled Propensity to adverse reactions Unknown [facility] Other Medications Current Medications Medication Drug Class(es) Dates Sig (Normalized) Sig (Original) acetaminophen 325 mg / HYDROcodone bitartrate 5 mg oral tablet (8 sources) Opioid Agonist take 1-2 tablets by mouth every six hours as needed HYDROcodone-Aceta minophen 5-325 MG 1-2 tablet as needed Oral every 6 hrs for 7 days Active [id number] actuat albuterol 0.09 mg/actuat metered dose [...] OR SHORTNESS OF BREATH FOR 30 DAYS 0 06/17/2023 Active Start: 01-20-2023 take 2 puff(s) [...] Start: 01-20-2023 take 1 tablet by corinne every twelve hours Amoxicillin 875 MG 1 [...] May, Active take 1 capsule by mo [facility] four times daily before mealtime dicyclomine (BENTYL) 10 MG capsule Take 10 mg by mouth 4 times daily (before meals and nightly) 0 Active Comment on above: Take 1 capsule by mo [facility] before meals and at bedtime. As needed. [...] solution (1 source) Standardized Chemical Allergen Start: End: formaldehyde, bulk, 37 % soln 240 [...] with radiology test) (20 sources) Start: 05-29-20 21 enteric contrast (will be provided with radiology [...] one(1) tablet d aily. Take by mouth. TEBV2-XVD-ADS-FISH OIL-L.CASEI ORAL (20 sources) WSED0-CTQ-TWP-FI SH OIL-L.CASEI ORAL Take by mouth once daily. 0 Active Comment on above: Take by mouth once d aily. polyethylene glycol 3350 921424 mg / potassium chloride 2970 mg / sodium bicarbonate 6740 mg / sodium chloride 5860 mg / sodium sulfate 30334 mg powder for oral solution (1 source) [...] CNOVon 09-29-2023 CNOV Office Visit ([facility]SMN ) ISABEL WADDELL ([id number]) 1960 F Date Time Provider Department 09/29/23 [...] mg by mouth daily at bedtime. - KNCS1-ASM-EBY-FISH OIL-L.CASEI ORAL Take by mouth once daily. [...] [D64.89] 09/02 (more content not included)... Normal [facility] ANES POSTPROC EVALon 09-02-2 023 ANES POSTPROC EVAL HNO ID: [id number] Author: Kobe Garcia MD Service: ? Author Type: Anesthesiologist Type: Anesthesia Postprocedure Evaluation Filed: 09/02/2023 10:38 AM Note Text: POST ANESTHESIA EVALUATION NOTE : 1960 Procedure Summary Date: 09/02/23 Room / Location: [address] Anesthesia Start: 745 Anesthesia Stop: 925 Procedures: [...] September 02, 2023 TIME: 10:37 AM CSN: [id number] Normal [facility] ANES PRE-OPon 09-02-2023 ANES PRE-OP HNO ID: [id number] Author: Kobe Garcia MD Service: ? Author Type: Anesthesiologist Type: Anesthesia Preprocedure Evaluation Filed: 09/02/2023 8:30 AM Note Text: ANESTHESIOLOGY DAY OF SURGERY NOTE : 1960 Procedure Information Date/Time: 09/02/23729 Procedures: EXAM UNDER ANESTHESIA RECTAL (Anus) SIGMOIDOSCOPY FLEXIBLE (Colon Sigmoid) ANOSCOPY W/ CONTROL OF BLEEDING- Formalin treatment (Anus) Location: [place] [address] / [facility] Surgeons: South Saba DO [...] and consent discussed: yes. Patient / Responsible Constitution Party agrees to proceed: yes Patient / [...] 16 09/02/23617 Temp 36.4 ?C (97.5 ?F) 10/17/23 0618 SpO2 98 % 09/02/23 0618 Facility-Administered Medications as of 09/02/2023 Medication Dose [...] 1,000 mg by mouth once daily. - KFSM9-ALX-EXQ-FISH OIL-L.CASEI ORAL Take by mouth once daily. [...] on 06/27/2023 (more content not included)... Normal [facility] ANES PREOPon 09-02-2023 ANES PREOP HNO ID: [id number] Author: Kobe Garcia MD Service: Anesthesiology Author Type: Anesthesiologist Type: Anesthesia PreOp Filed: 09/02/2023 7:05 AM Note Text: Healthy except for FAP. Appropriately NPO, denies reflux, no history of anesthesia problems. Reviewed in fathers presence. MP1, no airway concerns, ASA2, Plan for GA with LMA. Has braces, tight , no loose teeth. Normal [facility] BRIEF OP NOTon 09-02-2023 BRIEF OP NOT HNO ID: [id number] Author: Milagro Sanchez MD Service: Colorectal Author Type: Physician Type: Brief Op Note Filed: 09/02/2023 8:57 AM Note Text: BRIEF OPERATIVE NOTE - COLORECTAL SURGERY Log ID: [id number] Surgery/Procedure Date: 09/02/2023 Incision/Procedure Start Time: 8:01 AM Incision Close/Procedure End Time: 8:51 AM Surgeon(s) and Storeroom Supervisor(s): Surgeon(s) and Role: * South Saba DO [...] September 02, 2023 TIME: 8:56 AM Normal [facility] CNDSon 09-02-2023 CNDS HNO ID: [id number] Author: Ricardo White PA-C Service: Colorectal Author Type: Physician Storeroom Supervisor Type: Discharge Summary Filed: 09/02/2023 2:06 PM Note Text: Attestation signed by South Saba DO at 09/02/2023 4:24 PM South Saba DO, DAVID, FASCRS Colorectal Surgery DISCHARGE SUMMARY PATIENT NAME: Isabel [...] [facility]5 business days please call Dr. Saba's office at [phone] to make an appointment. Transitions of Care [...] capsule Commonly (more content not included)... Normal [facility] Hematocrit Auto (Bld) [Volum e fraction]on 09-02-2023 Hematocrit (Bld) [Volume fraction] 27.4 % Low 36.0-46.0 [facility] Comment on above: Order Comment: Speci men Type: BLOOD SPECIMEN Ordering Facility: [facility] Address: [address] [place] [address] Performed By: #### 5 0190-8, 2276-4 #### [facility] CLIA [id number] [address] [place] [address] [place] Hgb Bld-mCncon 09-02-2023 Hemoglobin (Bld) [Mass/Vol] 7.5 g/dL Low 11.5-15.5 [facility] Comment on above: Order Comment: Speci men Type: BLOOD SPECIMEN Ordering Facility: [facility] Address: [address] [place] [address], [place] [address] Performed By: #### 5 0190-8, 2276-4 #### [facility] CLIA [id number] [address] [facility] [place] [id number] [place] OPERATIVE NOon 09-02-2023 OPERATIVE NO HNO ID: [id number] Author: South Saba DO Service: Colorectal Author Type: Physician Type: Operative Report Filed: 09/10/2023 7:14 AM Note Text: OPERATIVE REPORT PATIENT NAME: Isabel Waddell LOG ID: [id number] SURGERY DATE: 09/02/2023 INCISION/PROCEDURE START TIME: 8:01 AM INCISION CLOSE/PROCEDURE END TIME: 8:51 AM PREOPERATIVE DIAGNOSIS: Radiation proctitis, anemia, history of endometrial adenocarcinoma POSTOPERATIVE DIAGNOSIS: Radiation proctitis, anemia, history of endometrial adenocarcinoma OPERATION PERFORMED: Flexible sigmoidoscopy, exam under anesthesia, topical application of formalin to the rectum for treatment of radiation proctitis SURGEON: South Saba DO PRIVATE EYE: Milagro Sanchez MD. no qualified residents or [...] Saba, DO, FACS, FASCRS Colorectal Surgery Normal [facility] TYPE + SCREENon 09-02-2023 ABO O Normal [facility] Comment on above: Order Comment: Speci men Type: BLOOD SPECIMEN Ordering Facility: [facility] Address: [address] [place] [address] Performed By: #### 5 0190-8, 2276-4 #### [facility] CLIA [id number] [address] [place] HISTORICAL AB SCR STATUS Negative Normal [facility] Comment on above: Order Comment: Speci men Type: BLOOD SPECIMEN Ordering Facility: [facility] Address: [address] [place] [address] Performed By: #### 5 0190-8, 2275-4 #### [facility] CLIA [id number] [address] [place] [address] [place] Rh Nom (Bld) Positive Normal [facility] Comment on above: Order Comment: Speci men Type: BLOOD SPECIMEN Ordering Facility: [facility] Address: [address] [place] [address] Performed By: #### 5 0190-8, 2276-02 #### [facility] CLIA [id number] [address] [place] [facility] TYPE AND SCREEN EXPIRATION 09/05/2023 23:59 Normal [facility] Comment on above: Order Comment: Speci men Type: BLOOD SPECIMEN Ordering Facility: [facility] Address: [address] [place] [address] Performed By: #### 5 0190-8, 2276-02 #### [facility] CLIA [id number] [address] [place] [address] [place] CBC W Auto Differential pane l (Bld)on 08-29-2023 Basophils (Bld) [#/Vol] 10*3/uL Normal <0.11 [facility] Comment on above: Order Comment: Speci men Type: BLOOD SPECIMENOrdering Facility: [facility] Address: [address] [place] [address] Performed By: #### 5 7021-8 ####[facility] [id number] [address] [place] Basophils/100 WBC (Bld) 0.7 % Normal [facility] Comment on above: Order Comment: Speci men Type: BLOOD SPECIMENOrdering Facility: [facility] Address: [address] [place] [address] Performed By: #### 5 7021-8 ####[facility] [id number] [place] [address] [place] Differential cell count method Nom (Bld) Auto Normal [facility] Comment on above: Order Comment: Speci men Type: BLOOD SPECIMENOrdering Facility: [facility] Address: [address] [place] [address] Performed By: #### 5 7021-8 ####[facility] [id number] [place] [address] [place] Eosinophils (Bld) [#/Vol] 0.18 10*3/uL Normal <0.46 [facility] Comment on above: Order Comment: Speci men Type: BLOOD SPECIMENOrdering Facility: [facility] Address: [address] [place] [address] Performed By: #### 5 7021-8 ####[facility] [id number] [place] [address] [place] Eosinophils/100 WBC (Bld) 5.9 % Normal [facility] Comment on above: Order Comment: Speci men Type: BLOOD SPECIMENOrdering Facility: [facility] Address: [address] [place] [address] Performed By: #### 5 7021-8 ####[facility] [id number] [place] [address] [place] Erythrocyte distribution width (RBC) [Ratio] 22.0 % High 11.5-15.0 [facility] Comment on above: Order Comment: Speci men Type: BLOOD SPECIMENOrdering Facility: [facility] Address: [address] [place] [address] Performed By: #### 5 7021-8 ####[facility] [id number] [address] [id number] [address] [place] Hematocrit (Bld) [Volume fraction] 26.0 % Low 36.0-46.0 [facility] Comment on above: Order Comment: Speci men Type: BLOOD SPECIMENOrdering Facility: [facility] Address: [address] [place] [address] Performed By: #### 5 7021-8 ####[facility] [id number] [place] [address] [place] Hemoglobin (Bld) [Mass/Vol] 7.0 g/dL Low 11.5-15.5 [facility] Comment on above: Order Comment: Speci men Type: BLOOD SPECIMENOrdering Facility: [facility] Address: [address] [place] [address] Performed By: #### 5 7021-8 ####[facility] [id number] [place] [address] [place] Immature granulocytes (Bld) [#/Vol] 10*3/uL Normal <0.10 [facility] Comment on above: Order Comment: Speci men Type: BLOOD SPECIMENOrdering Facility: [facility] Address: [address] [place] [address] Performed By: #### 5 7021-8 ####[facility] [id number] [place] [address] [place] Immature granulocytes/100 WBC (Bld) 0.0 % Normal [facility] Comment on above: Order Comment: Speci men Type: BLOOD SPECIMENOrdering Facility: [facility] Address: [address] [place] [address] Performed By: #### 5 7021-8 ####[facility] [id number] [place] [address] [place] Lymphocytes (Bld) [#/Vol] 1.20 10*3/uL Normal 1.00-4.00 [facility] Comment on above: Order Comment: Speci men Type: BLOOD SPECIMENOrdering Facility: [facility] Address: [address] [place] [address] Performed By: #### 5 7021-8 ####[facility] [id number] [place] [address] [place] Lymphocytes/100 WBC (Bld) 39.1 % Normal [facility] Comment on above: Order Comment: Speci men Type: BLOOD SPECIMENOrdering Facility: [facility] Address: [address] [place] [address] Performed By: #### 5 7021-8 ####[facility] [id number] [place] [address] [place] MCH (RBC) [Entitic mass] 17.9 pg Low 26.0-34.0 [facility] Comment on above: Order Comment: Speci men Type: BLOOD SPECIMENOrdering Facility: [facility] Address: [address] [place] [address] Performed By: #### 5 7021-8 ####[facility] [id number] [place] [address] [place] MCHC (RBC) [Mass/Vol] 26.9 g/dL Low 30.5-36.0 [facility] Comment on above: Order Comment: Speci men Type: BLOOD SPECIMENOrdering Facility: [facility] Address: [address] [place] [address] Performed By: #### 5 7021-8 ####[facility] [id number] [place] [address] [place] MCV (RBC) [Entitic vol] 66.3 fL Low 80.0-100.0 [facility] Comment on above: Order Comment: Speci men Type: BLOOD SPECIMENOrdering Facility: [facility] Address: [address] [place] [address] Performed By: #### 5 7021-8 ####[facility] [id number] [place] [address] [place] Monocytes (Bld) [#/Vol] 0.40 10*3/uL Normal <0.87 [facility] Comment on above: Order Comment: Speci men Type: BLOOD SPECIMENOrdering Facility: [facility] Address: [address] [place] [address] Performed By: #### 5 7021-8 ####[facility] [id number] [place] [address] [place] Monocytes/100 WBC (Bld) 13.0 % Normal [facility] Comment on above: Order Comment: Speci men Type: BLOOD SPECIMENOrdering Facility: [facility] Address: [address] [place] [address] Performed By: #### 5 7021-8 ####[facility] [id number] [place] [address] [place] Neutrophils (Bld) [#/Vol] 1.27 10*3/uL Low 1.45-7.50 [facility] Comment on above: Order Comment: Speci men Type: BLOOD SPECIMENOrdering Facility: [facility] Address: [address] [place] [address] Performed By: #### 5 7021-8 ####[facility] [id number] [place] [address] [place] Neutrophils/100 WBC (Bld) 41.3 % Normal [facility] Comment on above: Order Comment: Speci men Type: BLOOD SPECIMENOrdering Facility: [facility] Address: [address] [place] [address] Performed By: #### 5 7021-8 ####[facility] [id number] [place] [address] [place] Nucleated RBC (Bld) [#/Vol] 10*3/uL Normal <0.01 [facility] Comment on above: Order Comment: Speci men Type: BLOOD SPECIMENOrdering Facility: [facility] Address: [address] [place] [address] Performed By: #### 5 7021-8 ####[facility] [id number] [place] [address] [place] Nucleated RBC/100 WBC (Bld) [Ratio] 0.0 /100 WBC Normal [facility] Comment on above: Order Comment: Speci men Type: BLOOD SPECIMENOrdering Facility: [facility] Address: [address] [place] [address] Performed By: #### 5 7021-8 ####[facility] [id number] [place] [address] [place] Platelet mean volume (Bld) [Entitic vol] 9.6 fL Normal 9.0-12.7 [facility] Comment on above: Order Comment: Speci men Type: BLOOD SPECIMENOrdering Facility: [facility] Address: [address] [place] [address] Performed By: #### 5 7021-8 ####[facility] [id number] [place] [address] [place] Platelets (Bld) [#/Vol] 266 10*3/uL Normal 150-400 [facility] Comment on above: Order Comment: Speci men Type: BLOOD SPECIMENOrdering Facility: [facility] Address: [address] [place] [address] Performed By: #### 5 7021-8 ####[facility] [id number] [place] [address] [place] RBC (Bld) [#/Vol] 3.92 10*6/uL Normal 3.90-5.20 [facility] Comment on above: Order Comment: Speci men Type: BLOOD SPECIMENOrdering Facility: [facility] Address: [address] [place] [address] Performed By: #### 5 7021-8 ####[facility] [id number] [place] [id number] [place] WBC (Bld) [#/Vol] 3.07 10*3/uL Low 3.70-11.00 [facility] Comment on above: Order Comment: Speci men Type: BLOOD SPECIMENOrdering Facility: [facility] Address: [address] [place] [address] Performed By: #### 5 7021-8 ####[facility] [id number] [facility] [place] [address] [place] CNOVon 08-29-2023 CNOV Office Visit (CORSMN ) ISABEL WADDELL ([id number]) 1960 F Date Time Provider Department 08/29/23 11:00 AM ELDER GALAN During your visit today, we recorded the following information about you: Temperature Pulse Blood pressure Weight 98 degrees 82/minute 163/78 66.7 kg Height 1.676 m Elder Galan APRN.CNP 08/31/2023 9:11 PM Signed COLON AND RECTAL [...] team about CBC once drawn. Elder Galan, BETTY.[facility] Pelvic Floor Colorectal Surgery Risk of morbidity, mortality and/or complications of treatment plan: high Referring Provider: SOUTH SABA [[id number]] Allergies As of Allen (more content not included)... Normal [facility] CNOV Office Visit (PMNA11 ) ISABEL WADDELL ([id number]) 1960 F Date Time Provider Department 08/29/23 10:00 AM HEIDI MENARD PMNA11 During your visit today, we recorded the following information about you: Temperature Pulse Respiration Blood pressure 98 degrees 82/minute 16/minute 157/77 Weight 66.7 kg Heidi Menard MD 08/29/2023 1:08 PM Signed Ms. Waddell is a 63 year old female who presents to the [facility] [place]. 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 Normal [facility] metabolic 2000 panelon 08-29-2023 Albumin [Mass/Vol] 3.9 g/dL Normal 3.9-4.9 [facility] Comment on above: Order Comment: Speci men Type: BLOOD SPECIMEN [facility] Address: [address] [place], [place] [address] Performed By: #### 5 0190-8, 2275-4 #### [facility] CLIA [id number] [address] [place] [address] [place] ALP [Catalytic activity/Vol] 164 U/L High 34-123 [facility] Comment on above: Order Comment: Speci men Type: BLOOD SPECIMEN [facility] Address: [address] [place], [place] [address] Performed By: #### 5 0190-8, 2275- #### [facility] CLIA [id number] [address] [place] [address] [place] ALT [Catalytic activity/Vol] 45 U/L High 7-38 [facility] Comment on above: Order Comment: Speci men Type: BLOOD SPECIMEN [facility] Address: [address] [place], [place] [address] Performed By: #### 5 0190-8, 2276-02 #### [facility] CLIA [id number] [address] [place] [address] [place] Anion gap [Moles/Vol] 10 mmol/L Normal 9-18 [facility] Comment on above: Order Comment: Speci men Type: BLOOD SPECIMEN [facility] Address: [address] [place], [place] [address] Performed By: #### 5 0190-8, 2275- #### [facility] CLIA [id number] [address] [place] [address] [place] AST [Catalytic activity/Vol] 48 U/L High 13-35 [facility] Comment on above: Order Comment: Speci men Type: BLOOD SPECIMEN [facility] Address: [address] Performed By: #### 5 0190-8, 2275-4 #### [facility] CLIA [id number] [address] [place] [address] [place] Bilirubin [Mass/Vol] 0.3 mg/dL Normal 0.2-1.3 [facility] Comment on above: Order Comment: Speci men Type: BLOOD SPECIMEN [facility] Address: [address] Performed By: #### 5 0190-8, 2275- #### [facility] CLIA [id number] [address] [place] [address] [place] Calcium [Mass/Vol] 9.5 mg/dL Normal 8.5-10.2 [facility] Comment on above: Order Comment: Speci men Type: BLOOD SPECIMEN [facility] Address: [address] Performed By: #### 5 0190-8, 2275- #### [facility] CLIA [id number] [address] [place] [address] [place] Chloride [Moles/Vol] 107 mmol/L High 97-105 [facility] Comment on above: Order Comment: Speci men Type: BLOOD SPECIMEN [facility]ing Facility: [facility] Address: [address] Performed By: #### 5 0190-8, 2275- #### [facility] CLIA [id number] [address] [place] [address] [place] CO2 [Moles/Vol] 24 mmol/L Normal 22-30 [facility] Comment on above: Order Comment: Speci men Type: BLOOD SPECIMEN Ordering Facility: [facility] Address: [address] Performed By: #### 5 0190-8, 2276-02 #### [facility] CLIA [id number] [address] [place] [address] [place] Creatinine [Mass/Vol] 0.61 mg/dL Normal 0.58-0.96 [facility] Comment on above: Order Comment: Adonis mayo Type: BLOOD SPECIMEN Ordering Facility: [facility] Address: [address] [place] [place] [address] Performed By: #### 5 0190-8, 2276-02 #### [facility] CLIA [id number] [address] [place] [address] [place] Creatinine and Glomerular filtration rate.predicted panel (S/P/Bld) 101 mL/min/1.73m??? Normal >=60 [facility] Comment on above: Order Comment: Adonis mayo Type: BLOOD SPECIMEN Ordering Facility: [facility] Address: [address] [address] Result Comment: Kae mated Glomerular Filtration Rate [...] actual GFR. Performed By: #### 5 0190-8, 2276-02 #### [facility] CLIA [id number] [facility] [place] [address] [place] Glucose [Mass/Vol] 94 mg/dL Normal 74-99 [facility] Comment on above: Order Comment: Adonis mayo Type: BLOOD SPECIMEN Ordering Facility: [facility] Address: [address] [address] Result Comment: The [place] Diabetes Association (ADA) provides guidance for cutoff [...] Standards of Medical Care in Diabetes 2016, [place] [employer]. Diabetes Care. 2016.39(Suppl 1). Performed By: #### 5 0190-8, 2275-4 #### [facility] CLIA [id number] [address] [place] [address] [place] Potassium [Moles/Vol] 4.5 mmol/L Normal 3.7-5.1 [facility] Comment on above: Order Comment: Speci men Type: BLOOD SPECIMEN Ordering Facility: [facility] Address: [address] [place] [address] Performed By: #### 5 0190-8, 2275-4 #### [facility] CLIA [id number] [address] [place] [address] [place] Protein [Mass/Vol] 6.4 g/dL Normal 6.3-8.0 [facility] Comment on above: Order Comment: Speci men Type: BLOOD SPECIMEN Ordering Facility: [facility] Address: [address] [address] Performed By: #### 5 0190-8, 2275- #### [facility] CLIA [id number] [facility] [place] [address] [place] Sodium [Moles/Vol] 141 mmol/L Normal 136-144 [facility] Comment on above: Order Comment: Speci men Type: BLOOD SPECIMEN Ordering Facility: [facility] Address: [address] [place] [address] Performed By: #### 5 0190-8, 2275- #### [facility] CLIA [id number] [address] [place] [place] [id number] [place] Urea nitrogen [Mass/Vol] 13 mg/dL Normal 7-21 [facility] Comment on above: Order Comment: Speci men Type: BLOOD SPECIMEN Ordering Facility: [facility] Address: [address] [place] [address] Performed By: #### 5 0190-8, 2276-4 #### [facility] CLIA [id number] [address] [facility] [id number] [place] [address] ECG COMPLETEon 08-29-2023 ECG COMPLETE Ventricular Rate : 7 6 BPM Atrial Rate : 76 BPM P-R Interval : 194 ms QRS Duration : 82 ms Q-T Interval : 392 ms QTC Calculation(Bazett) : 441 ms Calculated P [place] : 22 degrees Calculated R [place] : 58 degrees Calculated T [place] : 43 degrees NORMAL SINUS RHYTHM POSSIBLE LEFT ATRIAL ENLARGEMENT LEFT VENTRICULAR HYPERTROPHY ABNORMAL ECG Confirmed by MING MITCHELL MD ([id number]) on 09/02/2023 9:46:08 PM NAME : ISABEL WADDELL PID : [id number] : 1960 Gender : Female Race : ORD : [id number] Procedure Date : Aug 29 2023 13:01:41 Edit Date : Sep 02 2023 21:46:10 Diagnosis: NORMAL SINUS RHYTHM POSSIBLE LEFT ATRIAL ENLARGEMENT LEFT VENTRICULAR HYPERTROPHY ABNORMAL ECG Confirmed by MING MITCHELL MD ([id number]) on 09/02/2023 9:46:08 PM Test Reason : Location : 119 : A17 A17 Overread By : MING MITCHELL MD Edited By : MING MITCHELL MD Referred By : [place] Acquired by : YASMIN AVILA [facility] ECHOon 08-29-2023 Echocardiography Echocardiography Report: Transthoracic Echo [facility] GUNNAR-2 Date of service: 08/29/2023 1:42:07 PM [facility] Ordering physician: MIKE THMOPSON Indication: Shortness of breath Technologist: Ashlee Mera [facility] Interpreting physician: Mikki Etienne MD PATIENT: [...] * * Final * * * [facility] Image : [id number] Normal [facility] HISTORY PHYSICALon HISTORY PHYSICAL HNO ID: [id number] Author: Elder Galan APRN.MONSERRAT Service: ? Author [...] team about CBC once drawn. Elder Galan APRN.CUSTOMER SERVICES MANAGER Pelvic Floor Colorectal Surgery Risk of morbidity, mortality and/or complications of treatment plan: high Normal [facility] TYPE + SCREENon 08-29-2023 ABO group Nom (Bld) O [facility] Blood group antibody screen Ql Negative [facility] HIstorical Ab Scr Status Negative [facility] Rh Nom (Bld) Positive [facility] Type and Screen Expiration 09/01/2023 23:59 [facility] ABO O Normal [facility] Comment on above: Order Comment: Speci men Type: BLOOD SPECIMEN [facility] Address: [address] Performed By: #### 5 0190-8, 2275-4 #### [facility] CLIA [id number] [address] [place] [address] [place] [facility] HISTORICAL AB SCR STATUS Negative Normal [facility] Comment on above: Order Comment: Speci men Type: BLOOD SPECIMEN Ordering Facility: [facility] Address: [address] [place], [place] [address] Performed By: #### 5 0190-8, 2275-4 #### [facility] CLIA [id number] [address] [place] [address] [place] Rh Nom (Bld) Positive Normal [facility] Comment on above: Order Comment: Speci men Type: BLOOD SPECIMEN Ordering Facility: [facility] Address: [address] [place], [place] [address] Performed By: #### 5 0190-8, 2275-4 #### [facility] CLIA [id number] [address] [place] [address] [place] TYPE AND SCREEN EXPIRATION 09/01/2023 23:59 Normal [facility] Comment on above: Order Comment: Speci men Type: BLOOD SPECIMEN Ordering Facility: [facility] Address: [address] [place], [place] [address] Performed By: #### 5 0190-8, 2275-4 #### [facility] CLIA [id number] [address] [place] [address] [place] XR CHEST 2V [...] of the thoracic spine. IMPRESSION: See Result. Cluster Bore Operator: PSCB Transcribe Date/Time: Aug 29 2023 9:55A Dictated by : KRYSTIAN MULTANI MD This examination was interpreted and the report reviewed and electronically signed by: KRYSTIAN MULTANI MD on Aug 29 2023 9:57AM EST [id number] [facility] CT CHEST WO IVCONon 08-22-[address] CHEST WO IVCON * * *Final Report* * * DATE OF EXAM: Aug 22 2023 8:49AM [facility] 0541 - CT CHEST WO [...] wall is unremarkable. Upper abdomen: Prior cholecystectomy. Industrial Cleaning Technician (topogram) images: No additional findings. IMPRESSION: 1. No convincing findings of interstitial lung disease. There is excessive dynamic collapse of mainstem bronchi. 2. Unchanged scattered calcified granulomas. No suspicious lung nodules. Cluster Bore Operator: PSCB Transcribe Date/Time: Aug 22 2023 8:56A Dictated by : RICHARD LOVELACE MD This examination was interpreted and the report reviewed and electronically signed by: RICHARD LOVELACE MD on Aug 22 2023 9:01AM EST [id number] Normal [facility] ISABEL WADDELL ([id number]) 1960 F Date Time Provider Department 07/22/23 [place] During your visit today, we recorded the following information about you: [facility] 07/22/2023 3:18 PM Signed Isabel Waddell [...] mg by mouth daily at bedtime. - KIHO4-XSI-OUZ-FISH OIL-L.CASEI ORAL Take by mouth once daily. [...] Status:Closed by GABY NICHOLS RN on 07/22/23 [facility] Telephone ([facility]) ISABEL WADDELL ([id number]) 1960 F Date Time Provider Department 07/22/23 [place] During your visit today, we recorded the following information about you: Enid Baker 07/22/2023 2:49 PM Signed [phone] Patient calling to reschedule her EUA. Allergies [...] mg by mouth daily at bedtime. - JWSO8-LKH-FMW-FISH OIL-L.CASEI ORAL Take by mouth once daily. [...] Status:Closed by ENID BAKER on 07/22/23 Normal [facility] Comprehensive metabolic 2000 panelon 07-05-2023 Albumin [Mass/Vol] 4.0 g/dL 3.9 - 4.9 g/dL [facility] ALP [Catalytic activity/Vol] 161 U/L High 34 - 123 U/L [facility] ALT [Catalytic activity/Vol] 47 U/L High 7 - 38 U/L [facility] Anion gap [Moles/Vol] 11 mmol/L 9 - 18 mmol/L [facility] AST [Catalytic activity/Vol] 41 U/L High 13 - 35 U/L [facility] Bilirubin [Mass/Vol] 0.3 mg/dL 0.2 - 1 .3 mg/dL [facility] Calcium [Mass/Vol] 9.5 mg/dL 8.5 - 10. 2 mg/dL [facility] Chloride [Moles/Vol] 105 mmol/L 97 - 10 5 mmol/L [facility] CO2 [Moles/Vol] 26 mmol/L 22 - 30 mmol/L [facility] Creatinine [Mass/Vol] 0.74 mg/dL 0.58 - 0.96 mg/dL [facility] Estimated Glomerular Filtration Rate 91 mL/min/1.73m >=60 mL/min/1.73m [facility] Glucose [Mass/Vol] 104 mg/dL High 74 - 99 mg/dL [facility] Potassium [Moles/Vol] 4.5 mmol/L 3.7 - 5.1 mmol/L [facility] Protein [Mass/Vol] 6.3 g/dL 6.3 - 8.0 g/dL [facility] Sodium [Moles/Vol] 142 mmol/L 136 - 144 mmol/L [facility] Urea nitrogen [Mass/Vol] 16 mg/dL 7 - 21 mg/dL [facility] CBC W Auto Differential pane l (Bld)on 07-04-2023 Basophils (Bld) [#/Vol] 0.03 10*3/uL Normal <0.11 [facility] Comment on above: Order Comment: Speci men Type: BLOOD SPECIMEN [facility] Address: [address] Performed By: #### 5 0190-8, 2276-02 #### [facility] CLIA [id number] [address] [place] Basophils/100 WBC (Bld) 0.9 % Normal [facility] Comment on above: Order Comment: Speci men Type: BLOOD SPECIMEN Order[facility] Facility: [facility] Address: [address] [place] [id number] Performed By: #### 5 0190-8, 2275- #### [facility] CLIA [id number] [address] [place] [address] [place] Differential cell count method Nom (Bld) Auto Normal [facility] Comment on above: Order Comment: Speci men Type: BLOOD SPECIMEN Order[facility] Facility: [facility] Address: [address] [place] [address] Performed By: #### 5 0190-8, 6-4 #### [facility] CLIA [id number] [address] [place] [address] [place] Eosinophils (Bld) [#/Vol] 0.16 10*3/uL Normal <0.46 [facility] Comment on above: Order Comment: Speci men Type: BLOOD SPECIMEN Order[facility] Facility: [facility] Address: [address] [place] [address] Performed By: #### 5 0190-8, 2275-4 #### [facility] CLIA [id number] [address] [place] [address] [place] Eosinophils/100 WBC (Bld) 4.9 % Normal [facility] Comment on above: Order Comment: Speci men Type: BLOOD SPECIMEN Order[facility] Facility: [facility] Address: [address] [place] [address] Performed By: #### 5 0190-8, 2275-4 #### [facility] CLIA [id number] [address] [place] [address] [place] Erythrocyte distribution width (RBC) [Ratio] 19.9 % High 11.5-15.0 [facility] Comment on above: Order Comment: Speci men Type: BLOOD SPECIMEN Ordering Facility: [facility] Address: [address] [place], [place] [address] Performed By: #### 5 0190-8, 2275- #### [facility] CLIA [id number] [address] [place] [address] [place] Hematocrit (Bld) [Volume fraction] 25.1 % Low 36.0-46.0 [facility] Comment on above: Order Comment: Speci men Type: BLOOD SPECIMEN Order[facility]: [facility] Address: [address] Performed By: #### 5 0190-8, 2276-02 #### [facility] CLIA [id number] [address] [place] [address] [place] Hemoglobin (Bld) [Mass/Vol] 7.1 g/dL Low 11.5-15.5 [facility] Comment on above: Order Comment: Speci men Type: BLOOD SPECIMEN [facility]: [facility] Address: [address] Performed By: #### 5 0190-8, 2276-02 #### [facility] CLIA [id number] [address] [place] [address] [place] Immature granulocytes (Bld) [#/Vol] 10*3/uL Normal <0.10 [facility] Comment on above: Order Comment: Speci men Type: BLOOD SPECIMEN Order[facility] Facility: [facility] Address: [address] [place], [place] [address] Performed By: #### 5 0190-8, 2276-02 #### [facility] CLIA [id number] [address] [place] [address] [place] Immature granulocytes/100 WBC (Bld) 0.3 % Normal [facility] Comment on above: Order Comment: Speci men Type: BLOOD SPECIMEN Order[facility] Facility: [facility] Address: [address] Performed By: #### 5 0190-8, 2276-02 #### [facility] CLIA [id number] [address] [place] [address] [place] Lymphocytes (Bld) [#/Vol] 1.12 10*3/uL Normal 1.00-4.00 [facility] Comment on above: Order Comment: Speci men Type: BLOOD SPECIMEN Order[facility]: [facility] Address: [address] Performed By: #### 5 0190-8, 2275-4 #### [facility] CLIA [id number] [address] [place] [address] [place] [facility] Lymphocytes/100 WBC (Bld) 34.6 % Normal [facility] Comment on above: Order Comment: Speci men Type: BLOOD SPECIMEN Ordering Facility: [facility] Address: [address] [place] [address] Performed By: #### 5 0190-8, 2275- #### [facility] CLIA [id number] [address] [place] [address] [place] MCH (RBC) [Entitic mass] 19.2 pg Low 26.0-34.0 [facility] Comment on above: Order Comment: Speci men Type: BLOOD SPECIMEN Order[facility] Facility: [facility] Address: [address] [place] [address] Performed By: #### 5 0190-8, 2275- #### [facility] CLIA [id number] [address] [place] [address] [place] MCHC (RBC) [Mass/Vol] 28.3 g/dL Low 30.5-36.0 [facility] Comment on above: Order Comment: Speci men Type: BLOOD SPECIMEN Ordering Facility: [facility] Address: [address] [place], [place] [address] Performed By: #### 5 0190-8, 2275- #### [facility] CLIA [id number] [address] [place] [address] [place] MCV (RBC) [Entitic vol] 67.8 fL Low 80.0-100.0 [facility] Comment on above: Order Comment: Speci men Type: BLOOD SPECIMEN Ordering Facility: [facility] Address: [address] [place], [place] [address] Performed By: #### 5 0190-8, 2276-02 #### [facility] CLIA [id number] [address] [place] [address] [place] Monocytes (Bld) [#/Vol] 0.49 10*3/uL Normal <0.87 [facility] Comment on above: Order Comment: Speci men Type: BLOOD SPECIMEN Ordering Facility: [facility] Address: [address] [place] [address] Performed By: #### 5 0190-8, 2276-02 #### [facility] CLIA [id number] [address] [place] [address] [place] Monocytes/100 WBC (Bld) 15.1 % Normal [facility] Comment on above: Order Comment: Speci men Type: BLOOD SPECIMEN Ordering Facility[facility] Address: [address] [place], [place] [address] Performed By: #### 5 0190-8, 2276-02 #### [facility] CLIA [id number] [address] [place] [address] [place] Neutrophils (Bld) [#/Vol] 1.43 10*3/uL Low 1.45-7.50 [facility] Comment on above: Order Comment: Speci men Type: BLOOD SPECIMEN [facility] Facility: [facility] Address: [address] [place] [address] Performed By: #### 5 0190-8, 2276-02 #### [facility] CLIA [id number] [address] [place] [address] [place] Neutrophils/100 WBC (Bld) 44.2 % Normal [facility] Comment on above: Order Comment: Speci men Type: BLOOD SPECIMEN [facility] Address: [address] [place] [address] Performed By: #### 5 0190-8, 2276-02 #### [facility] CLIA [id number] [address] [place] [address] [place] Nucleated RBC (Bld) [#/Vol] 10*3/uL Normal <0.01 [facility] Comment on above: Order Comment: Speci men Type: BLOOD SPECIMEN Ordering Facility: [facility] Address: [address] [place] [address] Performed By: #### 5 0190-8, 2275- #### [facility] CLIA [id number] [address] [place] [address] [place] Nucleated RBC/100 WBC (Bld) [Ratio] 0.0 /100 WBC Normal [facility] Comment on above: Order Comment: Speci men Type: BLOOD SPECIMEN Order[facility] Facility: [facility] Address: [address] [place] [address] Performed By: #### 5 0190-8, 2275- #### [facility] CLIA [id number] [address] [place] [address] [place] Platelet mean volume (Bld) [Entitic vol] 9.8 fL Normal 9.0-12.7 [facility] Comment on above: Order Comment: Speci men Type: BLOOD SPECIMEN Ordering Facility: [facility] Address: [address] [place], [place] [address] Performed By: #### 5 0190-8, 2275- #### [facility] CLIA [id number] [address] [place] [address] [place] Platelets (Bld) [#/Vol] 304 10*3/uL Normal 150-400 [facility] Comment on above: Order Comment: Speci men Type: BLOOD SPECIMEN Order[facility] Facility: [facility] Address: [address] [place] [address] Performed By: #### 5 0190-8, 2275- #### [facility] CLIA [id number] [address] [place] [address] [place] RBC (Bld) [#/Vol] 3.70 10*6/uL Low 3.90-5.20 [facility] Comment on above: Order Comment: Speci men Type: BLOOD SPECIMEN [facility] Address: [address] [place] [address] Performed By: #### 5 0190-8, 2276-4 #### [facility] CLIA [id number] [address] [place] [address] [place] WBC (Bld) [#/Vol] 3.24 10*3/uL Low 3.70-11.00 [facility] Comment on above: Order Comment: Speci men Type: BLOOD SPECIMEN [facility] Address: [address] [place] [address] Performed By: #### 5 0190-8, 2276-4 #### [facility] CLIA [id number] [address] [place] [address] [place] Basophils (Bld) [#/Vol] 0.03 10*3/uL <0.11 k/uL [facility] Basophils/100 WBC (Bld) 0.9 % [facility] Differential cell count method Nom (Bld) Auto [facility] Eosinophils (Bld) [#/Vol] 0.16 10*3/uL <0.46 k/uL [facility] Eosinophils/100 WBC (Bld) 4.9 % [facility] Erythrocyte distribution width (RBC) [Ratio] 19.9 % High 11.5 - 15.0 % [facility] Hematocrit (Bld) [Volume fraction] 25.1 % Low 36.0 - 46.0 % [facility] Hemoglobin (Bld) [Mass/Vol] 7.1 g/dL Low 11.5 - 15.5 g/dL [facility] Immature granulocytes (Bld) [#/Vol] <0.10 k/uL [facility] Immature granulocytes/100 WBC (Bld) 0.3 % [facility] Lymphocytes (Bld) [#/Vol] 1.12 10*3/uL 1.00 - 4.00 k/uL [facility] Lymphocytes/100 WBC (Bld) 34.6 % [facility] MCH (RBC) [Entitic mass] 19.2 pg Low 26.0 - 34.0 pg [facility] MCHC (RBC) [Mass/Vol] 28.3 g/dL Low 30.5 - 36.0 g/dL [facility] MCV (RBC) [Entitic vol] 67.8 fL Low 80.0 - 100.0 fL [facility] Monocytes (Bld) [#/Vol] 0.49 10*3/uL <0.87 k/uL [facility] Monocytes/100 WBC (Bld) 15.1 % [facility] Neutrophils (Bld) [#/Vol] 1.43 10*3/uL Low 1.45 - 7.50 k/uL [facility] Neutrophils/100 WBC (Bld) 44.2 % [facility] Nucleated RBC (Bld) [#/Vol] <0.01 k/uL [facility] Nucleated RBC/100 WBC (Bld) [Ratio] 0.0 /100 WBC [facility] Platelet mean volume (Bld) [Entitic vol] 9.8 fL 9.0 - 12.7 fL [facility] Platelets (Bld) [#/Vol] 304 10*3/uL 150 - 400 k/uL [facility] RBC (Bld) [#/Vol] 3.70 10*6/uL Low 3.90 - 5.2 0 m/uL [facility] WBC (Bld) [#/Vol] 3.24 10*3/uL Low 3.70 - 11. 00 k/uL [facility] CNOVon 07-04-2023 CNOV Office Visit (HOMERO ) ISABEL WADDELL ([id number]) 1960 F Date Time Provider Department 07/04/23 9:00 AM [place] During your visit today, we recorded the following information about you: Temperature Pulse Blood pressure Weight 97.6 degrees 73/minute 139/68 66.5 kg Height 1.676 m [place], 07/14/2023 11:36 AM Signed COLORECTAL SURGERY New [...] regular bowel movements. 03/05/23 Juan Manuel Medina, CUSTOMER SERVICES MANAGER: Isabel Waddell is a 62 year old [...] 150 mg by mouth daily at bedtime. [id number]-GLN-ESJ-FISH OIL-L.CASEI ORAL Take by mouth once daily. Lactobac no.41/Bifidobact no.7 (PROBIOTIC (more content not included)... Normal [facility] Comprehensive metabolic 2000 panelon 07-04-2023 Albumin [Mass/Vol] 4.0 g/dL Normal 3.9-4.9 [facility] Comment on above: Order Comment: Speci men Type: BLOOD SPECIMEN [facility] Address: [address] [place] [address] Performed By: #### 2 4323-8 #### [facility] CLIA [id number] [address] [place] [address] [place] ALP [Catalytic activity/Vol] 161 U/L High 34-123 [facility] Comment on above: Order Comment: Speci men Type: BLOOD SPECIMEN [facility] Address: [address] [place] [address] Performed By: #### 2 4323-8 #### [facility] CLIA [id number] [address] [place] [address] [place] ALT [Catalytic activity/Vol] 47 U/L High 7-38 [facility] Comment on above: Order Comment: Speci men Type: BLOOD SPECIMEN [facility] Address: [address] [place] [address] Performed By: #### 2 4323-8 #### [facility] CLIA [id number] [address] [place] [address] [place] Anion gap [Moles/Vol] 11 mmol/L Normal 9-18 [facility] Comment on above: Order Comment: Speci men Type: BLOOD SPECIMEN [facility] Address: [address] [place], [place] [address] Performed By: #### 2 4323-8 #### [facility] CLIA [id number] [address] [place] [address] [place] AST [Catalytic activity/Vol] 41 U/L High 13-35 [facility] Comment on above: Order Comment: Speci men Type: BLOOD SPECIMEN [facility] Facility[facility] Address: [address] [place] [address] Performed By: #### 2 4323-8 #### [facility] CLIA [id number] [address] [place] [address] [place] Bilirubin [Mass/Vol] 0.3 mg/dL Normal 0.2-1.3 [facility] Comment on above: Order Comment: Speci men Type: BLOOD SPECIMEN Ordering Facility: [facility] Address: [address] Performed By: #### 2 4323-8 #### [facility] CLIA [id number] [address] [place] [address] [place] Calcium [Mass/Vol] 9.5 mg/dL Normal 8.5-10.2 [facility] Comment on above: Order Comment: Speci men Type: BLOOD SPECIMEN [facility]ing Facility: [facility] Address: [address] Performed By: #### 2 4323-8 #### [facility] CLIA [id number] [address] [place] [address] [place] Chloride [Moles/Vol] 105 mmol/L Normal 97-105 [facility] Comment on above: Order Comment: Speci men Type: BLOOD SPECIMEN [facility]ing Facility: [facility] Address: [address] Performed By: #### 2 4323-8 #### [facility] CLIA [id number] [address] [place] [address] [place] CO2 [Moles/Vol] 26 mmol/L Normal 22-30 [facility] Comment on above: Order Comment: Speci men Type: BLOOD SPECIMEN [facility]ing Facility: [facility] Address: [address] Performed By: #### 2 4323-8 #### [facility] CLIA [id number] [address] STATES OF [facility] Creatinine [Mass/Vol] 0.74 mg/dL Normal 0.58-0.96 [facility] Comment on above: Order Comment: Adonis mayo Type: BLOOD SPECIMEN [facility]ing Facility: [facility] Address: [address] [place] [address] Performed By: #### 2 4323-8 #### [facility] CLIA [id number] [address] [place] [address] Creatinine and Glomerular filtration rate.predicted panel (S/P/Bld) 91 mL/min/1.73m??? Normal >=60 [facility] Comment on above: Order Comment: Adonis mayo Type: BLOOD SPECIMEN [facility]ing Facility: [facility] Address: [address] [place] [address] Result Comment: Kae mated Glomerular Filtration Rate [...] GFR. Performed By: #### 2 4323-8 #### [facility] CLIA [id number] [facility] [place] Glucose [Mass/Vol] 104 mg/dL High 74-99 [facility] Comment on above: Order Comment: Adonis mayo Type: BLOOD SPECIMEN [facility]ing Facility: [facility] Address: [address] [place] [address] Result Comment: The [place] Diabetes Association (ADA) provides guidance for cutoff [...] Standards of Medical Care in Diabetes 2016, [place] [employer]. Diabetes Care. 2016.39(Suppl 1). Performed By: #### 2 4323-8 #### [facility] CLIA [id number] [facility] [place] [address] [place] Potassium [Moles/Vol] 4.5 mmol/L Normal 3.7-5.1 [facility] Comment on above: Order Comment: Speci men Type: BLOOD SPECIMEN [facility] Facility: [facility] Address: [address] [place] [address] Performed By: #### 2 4323-8 #### [facility] CLIA [id number] [address] [place] [address] [place] Protein [Mass/Vol] 6.3 g/dL Normal 6.3-8.0 [facility] Comment on above: Order Comment: Speci men Type: BLOOD SPECIMEN [facility] Facility: [facility] Address: [address] Performed By: #### 2 4323-8 #### [facility] CLIA [id number] [address] [place] [address] [place] Sodium [Moles/Vol] 142 mmol/L Normal 136-144 [facility] Comment on above: Order Comment: Speci men Type: BLOOD SPECIMEN [facility]: [facility] Address: [address] [place] [address] Performed By: #### 2 4323-8 #### [facility] CLIA [id number] [address] [place] [address] [place] Urea nitrogen [Mass/Vol] 16 mg/dL Normal 7-21 [facility] Comment on above: Order Comment: Speci men Type: BLOOD SPECIMEN [facility]: [facility] Address: [address] Performed By: #### 2 4323-8 #### [facility] CLIA [id number] [address] [place], [place] [address] [place] [address] [place] HISTORY PHYSICALon 3 HISTORY PHYSICAL HNO ID: [id number] Author: [place], DO Service: ? Author [...] regular bowel movements. 03/05/23 Juan Manuel Medina CUSTOMER SERVICES MANAGER: Isabel Waddell is a 62 year old [...] 150 mg by mouth daily at bedtime. [id number]-FISH OIL-L.CASEI ORAL Take by mouth once daily. Lactobac no.41/Bifidobact no.7 (PROBIOTIC-10 ORAL) Take by mouth once daily. MULTIVITAMIN TAB Take one(1) tablet daily. 0 B COMPLEX VITAMINS CAP Take one(1) capsule daily. 0 CALCIUM CARBONATE-VIT D3-MINERALS 600 MG-400 UNIT TAB Take 1 tablet by mouth twice daily. 0 Current Facility-Administered Medications Medication (more content not included)... Normal [facility] CNOVon 06-27-2023 CNOV Office Visit (PMNA11 ) ISABEL WADDELL Ashlie ([id number]) 1960 F Date Time Provider Department 06/27/23 10:30 AM HEIDI MENARD PMNA11 During your visit today, we recorded the following information about you: Temperature Pulse Respiration Blood pressure 97.4 degrees 70/minute 16/minute 141/76 Weight 69.4 kg Heidi Menard MD 06/27/2023 11:47 AM Addendum Ms. Waddell is a 63 year old female who presents to the [facility] [place]. Consultation requested by Self. 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 Silica: No significant exposure. Talbot: No significant exposure. Organic HP antigen: No [...] and de-a (more content not included)... Normal [facility] HEMOGLOBINon 03-21-2023 Hemoglobin (Bld) [Mass/Vol] 9.1 g/dL Critically low 12.0-16.0 [facility] Comment on above: Performed By: #### H GB ####[facility] [id number] [place], [place] [address]Bs. Cheryl Monzon XR CHEST 2 Von 03-10-2023 [...] by: HENRY LOCK Date: 2023-03-10 13:57 Normal [facility] CNOVon 03-05-2023 CNOV Office Visit (GASTLN ) ISABEL WADDELL ([id number]) 1960 F Date Time Provider Department 03/05/23 [...] Abs Lymph 1.00 - 4.00 k/uL 1.31 Yates% % 11.1 Abs Yates <0.87 k/uL 0.50 Eosin% % 3.1 Abs [...] or Indwelling (more content not included)... Normal [facility] HISTORY PHYSICALon 3 HISTORY PHYSICAL HNO ID: [id number] Author: Juan Manuel Medina APRN.CUSTOMER SERVICES MANAGER Service: ? Author Type: Nurse Practitioner Type: [...] Abs Lymph 1.00 - 4.00 k/uL 1.31 Yates% % 11.1 Abs Yates <0.87 k/uL 0.50 Eosin% % 3.1 Abs [...] mouth daily (more content not included)... Normal [facility] Covid-19 PCR ([facility])on SARS-CoV-2 (COVID-19) RNA ANGELA+probe Ql (Unsp spec) Not detected Normal NOT DETECTED [facility] Comment on above: Result Comment: When diagnostic [...] for this test is supported by the [employer]orer of Health and Human Service's declaration that [...] used). Performed By: #### C VDTB #### [facility] Laboratory [address] [place] [address] Dr. Cheryl Monzon INFLUENZA A AND B [place] 01-20 [facility] SEE BELOW Normal [facility] Comment on above: Result Comment: Nega tive for Flu A protein angiten. Infection due to Flu A cannot be ruled out. Flu A angiten in the sample may be below the detection limit of the test. Performed By: #### I NFLUAB #### [facility] Laboratory [address] [place] [address] Dr. [facility] Normal [facility] Comment on above: Result Comment: Nega tive for Flu B protein antigen. Infection due to Flu B cannot be ruled out. Flu B antigen in the sample may be below the detection limit of the test. Performed By: #### I NFLUAB #### [facility] Laboratory [address] [place] [address] [address] Cheryl Monzon INFLUENZA A AG Negative Normal NEGATIVE SEE COMMENT [facility] Comment on above: Performed By: #### I NFLUAB #### [facility] Laboratory [address] [place] [address] [address] Cheryl Monzon INFLUENZA B AG Negative Normal NEGATIVE SEE COMMENT [facility] Comment on above: Performed By: #### I NFLUAB #### [facility] Laboratory [address] [place] [address] [address] Cheryl Monzon FERRITIN BLDon 01-04-2023 Ferritin [Mass/Vol] 14.2 ng/mL Low 14.7 - 2 05.1 ng/mL [facility] Iron and Iron binding capaci ty panelon 01-04-2023 Iron [Mass/Vol] 77 ug/dL 41 - 186 ug/dL [facility] Iron binding capacity [Mass/Vol] 382 ug/dL 232 - 386 ug/dL [facility] Iron/TIBC [Molar ratio] 20.2 % 15.0 - 57.0 % [facility] CBC W Auto Differential pane l (Bld)on 01-03-2023 Basophils (Bld) [#/Vol] 10*3/uL Normal <0.11 [facility] Comment on above: Order Comment: Speci men Type: BLOOD SPECIMENOrdering Facility: [facility] Address: [address] [place] [address] Performed By: #### 5 7021-8 ####[facility] [id number] [place] [address] [place] Basophils/100 WBC (Bld) 0.4 % Normal [facility] Comment on above: Order Comment: Speci men Type: BLOOD SPECIMENOrdering Facility: [facility] Address: [address] [place] [address] Performed By: #### 5 7021-8 ####[facility] [id number] [place] [address] [place] Differential cell count method Nom (Bld) Auto Normal [facility] Comment on above: Order Comment: Speci men Type: BLOOD SPECIMENOrdering Facility: [facility] Address: [address] Performed By: #### 5 7021-8 ####[facility] [id number] [place] [address] [place] [facility] [place] Eosinophils (Bld) [#/Vol] 0.14 10*3/uL Normal <0.46 [facility] Comment on above: Order Comment: Speci men Type: BLOOD SPECIMENOrdering Facility: [facility] Address: [address] Performed By: #### 5 7021-8 ####[facility] [id number] [address] [place] Eosinophils/100 WBC (Bld) 3.1 % Normal [facility] Comment on above: Order Comment: Speci men Type: BLOOD SPECIMENOrdering Facility: [facility] Address: [address] Performed By: #### 5 7021-8 ####[facility] [id number] [place] [address] [place] Erythrocyte distribution width (RBC) [Ratio] 13.0 % Normal 11.5-15.0 [facility] Comment on above: Order Comment: Speci men Type: BLOOD SPECIMENOrdering Facility: [facility] Address: [address] Performed By: #### 5 7021-8 ####[facility] [id number] [address] [place] Hematocrit (Bld) [Volume fraction] 35.4 % Low 36.0-46.0 [facility] Comment on above: Order Comment: Speci men Type: BLOOD SPECIMENOrdering Facility: [facility] Address: [address] Performed By: #### 5 7021-8 ####[facility] [id number] [place] [address] [place] Hemoglobin (Bld) [Mass/Vol] 11.5 g/dL Normal 11.5-15.5 [facility] Comment on above: Order Comment: Speci men Type: BLOOD SPECIMENOrdering Facility: [facility] Address: [address] [place] [address] Performed By: #### 5 7021-8 ####[facility] [id number] [place] [address] [place] Immature granulocytes (Bld) [#/Vol] 10*3/uL Normal <0.10 [facility] Comment on above: Order Comment: Speci men Type: BLOOD SPECIMENOrdering Facility: [facility] Address: [address] [place] [address] Performed By: #### 5 7021-8 ####[facility] [id number] [place] [address] [place] Immature granulocytes/100 WBC (Bld) 0.2 % Normal [facility] Comment on above: Order Comment: Speci men Type: BLOOD SPECIMENOrdering Facility: [facility] Address: [address] [place], [place] [address] Performed By: #### 5 7021-8 ####[facility] [id number] [place] [address] [place] Lymphocytes (Bld) [#/Vol] 1.31 10*3/uL Normal 1.00-4.00 [facility] Comment on above: Order Comment: Speci men Type: BLOOD SPECIMENOrdering Facility: [facility] Address: [address] [place], [place] [address] Performed By: #### 5 7021-8 ####[facility] [id number] [place] [address] [place] Lymphocytes/100 WBC (Bld) 29.0 % Normal [facility] Comment on above: Order Comment: Speci men Type: BLOOD SPECIMENOrdering Facility: [facility] Address: [address] [place], [place] [address] Performed By: #### 5 7021-8 ####[facility] [id number] [address] STATES [facility] MCH (RBC) [Entitic mass] 30.0 pg Normal 26.0-34.0 [facility] Comment on above: Order Comment: Speci men Type: BLOOD SPECIMENOrdering Facility: [facility] Address: [address] [place], [place] [address] Performed By: #### 5 7021-8 ####[facility] [id number] [address] [place] MCHC (RBC) [Mass/Vol] 32.5 g/dL Normal 30.5-36.0 [facility] Comment on above: Order Comment: Speci men Type: BLOOD SPECIMENOrdering Facility: [facility] Address: [address] [place], [place] [address] Performed By: #### 5 7021-8 ####[facility] [id number] [address] [place] MCV (RBC) [Entitic vol] 92.4 fL Normal 80.0-100.0 [facility] Comment on above: Order Comment: Speci men Type: BLOOD SPECIMENOrdering Facility: [facility] Address: [address] [place], [place] [address] Performed By: #### 5 7021-8 ####[facility] [id number] [address] [place] Monocytes (Bld) [#/Vol] 0.50 10*3/uL Normal <0.87 [facility] Comment on above: Order Comment: Speci men Type: BLOOD SPECIMENOrdering Facility: [facility] Address: [address] Performed By: #### 5 7021-8 ####[facility] [id number] [address] [place] Monocytes/100 WBC (Bld) 11.1 % Normal [facility] Comment on above: Order Comment: Speci men Type: BLOOD SPECIMENOrdering Facility: [facility] Address: [address] Performed By: #### 5 7021-8 ####[facility] [id number] [place] [address] [place] Neutrophils (Bld) [#/Vol] 2.53 10*3/uL Normal 1.45-7.50 [facility] Comment on above: Order Comment: Speci men Type: BLOOD SPECIMENOrdering Facility: [facility] Address: [address] Performed By: #### 5 7021-8 ####[facility] [id number] [address] [place] Neutrophils/100 WBC (Bld) 56.2 % Normal [facility] Comment on above: Order Comment: Speci men Type: BLOOD SPECIMENOrdering Facility: [facility] Address: [address] Performed By: #### 5 7021-8 ####[facility] [id number] [place] [address] [place] Nucleated RBC (Bld) [#/Vol] 10*3/uL Normal <0.01 [facility] Comment on above: Order Comment: Speci men Type: BLOOD SPECIMENOrdering Facility: [facility] Address: [address] [place] [address] Performed By: #### 5 7021-8 ####[facility] [id number] [place] [address] [place] Nucleated RBC/100 WBC (Bld) [Ratio] 0.0 /100 WBC Normal [facility] Comment on above: Order Comment: Speci men Type: BLOOD SPECIMENOrdering Facility: [facility] Address: [address] [place] [address] Performed By: #### 5 7021-8 ####[facility] [id number] [place] [address] [place] Platelet mean volume (Bld) [Entitic vol] 9.9 fL Normal 9.0-12.7 [facility] Comment on above: Order Comment: Speci men Type: BLOOD SPECIMENOrdering Facility: [facility] Address: [address] [place] [address] Performed By: #### 5 7021-8 ####[facility] [id number] [place] [address] [place] Platelets (Bld) [#/Vol] 235 10*3/uL Normal 150-400 [facility] Comment on above: Order Comment: Speci men Type: BLOOD SPECIMENOrdering Facility: [facility] Address: [address] [place], [place] [address] Performed By: #### 5 7021-8 ####[facility] [id number] [place] [address] [place] RBC (Bld) [#/Vol] 3.83 10*6/uL Low 3.90-5.20 [facility] Comment on above: Order Comment: Speci men Type: BLOOD SPECIMENOrdering Facility: [facility] Address: [address] [place], [place] [address] Performed By: #### 5 7021-8 ####[facility] [id number] [place] [address] [place] WBC (Bld) [#/Vol] 4.51 10*3/uL Normal 3.70-11.00 [facility] Comment on above: Order Comment: Speci men Type: BLOOD SPECIMENOrdering Facility: [facility] Address: [address] [place] [address] Performed By: #### 5 7021-8 ####[facility] [id number] [facility] [id number] [place] [address] [place] Basophils (Bld) [#/Vol] <0.11 k/uL [facility] Basophils/100 WBC (Bld) 0.4 % [facility] Differential cell count method Nom (Bld) Auto [facility] Eosinophils (Bld) [#/Vol] 0.14 10*3/uL <0.46 k/uL [facility] Eosinophils/100 WBC (Bld) 3.1 % [facility] Erythrocyte distribution width (RBC) [Ratio] 13.0 % 11.5 - 15.0 % [facility] Hematocrit (Bld) [Volume fraction] 35.4 % Low 36.0 - 46.0 % [facility] Hemoglobin (Bld) [Mass/Vol] 11.5 g/dL 11.5 - 15.5 g/dL [facility] Immature granulocytes (Bld) [#/Vol] <0.10 k/uL [facility] Immature granulocytes/100 WBC (Bld) 0.2 % [facility] Lymphocytes (Bld) [#/Vol] 1.31 10*3/uL 1.00 - 4.00 k/uL [facility] Lymphocytes/100 WBC (Bld) 29.0 % [facility] MCH (RBC) [Entitic mass] 30.0 pg 26.0 - 34.0 pg [facility] MCHC (RBC) [Mass/Vol] 32.5 g/dL 30.5 - 36.0 g/dL [facility] MCV (RBC) [Entitic vol] 92.4 fL 80.0 - 100.0 fL [facility] Monocytes (Bld) [#/Vol] 0.50 10*3/uL <0.87 k/uL [facility] Monocytes/100 WBC (Bld) 11.1 % [facility] Neutrophils (Bld) [#/Vol] 2.53 10*3/uL 1.45 - 7.50 k/uL [facility] Neutrophils/100 WBC (Bld) 56.2 % [facility] Nucleated RBC (Bld) [#/Vol] <0.01 k/uL [facility] Nucleated RBC/100 WBC (Bld) [Ratio] 0.0 /100 WBC [facility] Platelet mean volume (Bld) [Entitic vol] 9.9 fL 9.0 - 12.7 fL [facility] Platelets (Bld) [#/Vol] 235 10*3/uL 150 - 400 k/uL [facility] RBC (Bld) [#/Vol] 3.83 10*6/uL Low 3.90 - 5.2 0 m/uL [facility] WBC (Bld) [#/Vol] 4.51 10*3/uL 3.70 - 11. 00 k/uL [facility] CNOVSPon 01-03-2023 CNOVSP Visit (SP) Office (GYONCA) ISABEL WADDELL ([id number]) 1960 F Date Time Provider Department 01/03/23 3:20 PM HENRY RAMOS During your visit today, we recorded the following information about you: Temperature Pulse Blood pressure Weight 97.8 degrees 95/minute 141/87 71.2 kg Height 1.676 m Henry Ramos MD 01/12/2023 11:27 PM Signed Gynecologic Oncology [facility] Follow up visit Date of service: [...] differentiation, FIGO grade 2. 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 GZ/ka 05/28/2021 COMMENT The tumor cells are diffusely and strongly positive for immunohistochemical stain for [place] 8, supporting the above diagnosis. The patient [...] ORAL T (more content not included)... Normal [facility] Ferritin SerPl-mCncon 2022 Ferritin [Mass/Vol] 14.2 ng/mL Low 14.7-205.1 [facility] Comment on above: Order Comment: Adonis mayo Type: BLOOD SPECIMEN [facility] Address: [address] [place] [address] Performed By: #### 5 0190-8, 2276-4 #### [facility] CLIA [id number] [address] [place] [address] [place] Iron and Iron binding capaci ty panelon 01-03-2023 Iron [Mass/Vol] 77 ug/dL Normal 41-186 [facility] Comment on above: Order Comment: Speci men Type: BLOOD SPECIMEN [facility] Address: [address] [address] Performed By: #### 5 0190-8, 2276-4 #### [facility] CLIA [id number] [address] [place] [address] Iron binding capacity [Mass/Vol] 382 ug/dL Normal 232-386 [facility] Comment on above: Order Comment: Speci men Type: BLOOD SPECIMEN [facility] Address: [address] [place] [address] Performed By: #### 5 0190-8, 2276-4 #### [facility] CLIA [id number] [address] [place] [address] OF [facility] Iron/TIBC [Molar ratio] 20.2 % Normal 15.0-57.0 [facility] Comment on above: Order Comment: Speci men Type: BLOOD SPECIMEN [facility] Address: [address] [place] [address] Performed By: #### 5 0190-8, 2276-4 #### [facility] CLIA [id number] [address] [place] [address] OF [facility] CNPKlaudia 12-25-2022 CNPN Telephone (BHAVNA) ISABEL WADDELL ([id number]) 1960 F Date Time Provider Department 12/25/22 ARETHA PENA During your visit today, we recorded the following information about you: Aretha Pena RN 12/25/2022 2:19 PM Signed ----- Message from Jeronimothesixtyonele sent at 12/25/2022 12:04 PM EST ----- Regarding: Rachel Patient bleeding and clotting almost daily since Colonoscopy. September was the Colonoscopy. Concerned and would like to know if she should schedule an appointment. [phone] Aretha Pena RN 12/25/2022 2:24 PM Signed [...] mg by mouth daily at bedtime. - [id number]-FISH OIL-L.CASEI ORAL Take by mouth once daily. [...] Status:Closed by ARETHA PENA on 12/25/22 Normal [facility] Covid-19 PCR (CVDTB)on SARS-CoV-2 (COVID-19) RNA ANGELA+probe Ql (Unsp spec) Not detected Normal NOT DETECTED [facility] Comment on above: Result Comment: When diagnostic [...] for this test is supported by the [employer] Laborer of Health and Human Service's declaration that [...] used). Performed By: #### C VDTB #### [facility] [address] [place] [address] Dr. Cheryl Monzon INFLUENZA A AND B AGon 11-19 INFLUANEGH SEE BELOW Normal The [facility] Comment on above: Result Comment: Nega tive for Flu A protein angiten. Infection due to Flu A cannot be ruled out. Flu A angiten in the sample may be below the detection limit of the test. Performed By: #### I NFLUAB #### [facility] [address] [place] [address] Dr. Cheryl [facility] SEE BELOW Normal The [facility] Comment on above: Result Comment: Nega tive for Flu B protein antigen. Infection due to Flu B cannot be ruled out. Flu B antigen in the sample may be below the detection limit of the test. Performed By: #### I NFLUAB #### [facility] [address] [place] [address] Dr. Cheryl Monzon INFLUENZA A AG Negative Normal NEGATIVE SEE COMMENT [facility] Comment on above: Performed By: #### I NFLUAB #### [facility] [address] [place] [address] Dr. Cheryl Monzon INFLUENZA B AG Negative Normal NEGATIVE SEE COMMENT The [facility] Comment on above: Performed By: #### I NFLUAB #### [facility] [address] [place] [address] Dr. Cheryl Monzon MG MAMM SCREEN 3D RAGHU CADon 10-04-2022 MG MAMM SCREEN 3D RAGHU CAD Patient: ISABEL WADDELL Exam Date: 10/04/2022 : 1960 Gender:F Ordering : DR ROLAND SERRANO D.O. Admission #: [id number] Family : Order #: [id number] CLICK HERE TO VIEW EXAM RADIOLOGY REPORT [...] Treatments radiation-hysterectomy Family Cancers None LOCATION: The [facility] BREAST COMPOSITION: Scattered areas fibroglandular density. FINDINGS: [...] MD on 10/04/2022 at 13:53 Normal The [facility] COLONOSCOPY (THERAPEUTIC)on 09-26-2022 [facility] T3, TOTAL (TRIIODOTHYRONINE) on 09-05-2022 T3, TOTAL 132 ng/dL Normal 71-180 The [facility] Comment on above: Performed By: #### T 3TOTAL ####[facility] [address] [place], [place] [address]DrStephan Monzon CBC AUTO DIFFon 09-04-2022 BASO # 0.0 103/ul Normal 0.0-0.1 [facility] Comment on above: Performed By: #### C BC ####[facility] [address] [place], [place] [address]DrStephan Monzon Basophils/100 WBC (Bld) 0.4 % Normal 0.2-2.0 [facility] Comment on above: Performed By: #### C BC ####[facility] [address] [place], [place] [address]DrStephan Monzon EO # 0.1 103/ul Normal 0.0-0.7 [facility] Comment on above: Performed By: #### C BC ####[facility] [address] [place], [place] [address]DrStephan Monzon Eosinophils/100 WBC (Bld) 4.9 % Normal 0.9-7.0 [facility] Comment on above: Performed By: #### C BC ####[facility] [address] [place], [place] [address]DrStephan Monzon Erythrocyte distribution width (RBC) [Ratio] 12.8 % Normal 11.0-15.0 [facility] Comment on above: Performed By: #### C BC ####[facility] [address] [place], [place] [address]DrStephan Monzon Hematocrit (Bld) [Volume fraction] 36.7 % Normal 36.0-48.0 [facility] Comment on above: Performed By: #### C BC ####[facility] [address] [place] [address]DrStephan Galeanaalden Nicolás Hemoglobin (Bld) [Mass/Vol] 11.8 g/dL Critically low 12.0-16.0 [facility] Comment on above: Performed By: #### C BC ####[facility] [address] [place] [address]DrStephan Monzon IG # 0.01 10e3/ul Normal 0.00-0.03 [facility] Comment on above: Performed By: #### C BC ####[facility] [address] [place], [place] [address]DrStephan Monzon IG % 0.4 % Normal 0.0-0.5 [facility] Comment on above: Performed By: #### C BC ####[facility] [address] [place], [place] [address]DrStephan Monzon LYMPH # 0.8 103/ul Critically low 1.2-3.[address] [facility] Comment on above: Performed By: #### C BC ####[facility] [address] [place], [place] [address]DrStephan Monzon Lymphocytes/100 WBC (Bld) 28.6 % Normal 20.5-60.0 [facility] Comment on above: Performed By: #### C BC ####[facility] [address] [place] [address]DrStephan Monzon MANUAL DIFF REQ NO Normal [facility] Comment on above: Performed By: #### C BC ####[facility] [address] [place] [id number] Monzon MCH (RBC) [Entitic mass] 30.7 pg Normal 26.7-34.0 [facility] Comment on above: Performed By: #### C BC ####[facility] [address] [place] [id number] Monzon MCHC (RBC) [Mass/Vol] 32.2 g/dL Normal 29.9-35.2 The [facility] Comment on above: Performed By: #### C BC ####[facility] [address] [place] [address]DrStephan Cheryl Nicolás MCV (RBC) [Entitic vol] 95.6 fL Normal 81.0-99.0 The [facility] Comment on above: Performed By: #### C BC ####[facility] [address] [place] [address]DrStephan Monzon MONO # 0.3 103/ul Normal 0.3-0.8 The [facility] Comment on above: Performed By: #### C BC ####[facility] [address] [place] [address]DrStephan Monzon Monocytes/100 WBC (Bld) 11.7 % Normal 1.7-12.0 The [facility] Comment on above: Performed By: #### C BC ####[facility] [address] [place], [place] [address]Dr. Cheryl Monzon NEUT # 1.4 103/ul Normal 1.4-6.5 The [facility] Comment on above: Performed By: #### C BC ####[facility] [address] [place], [place] [address]Dr. Cheryl Monzon Neutrophils/100 WBC (Bld) 54.0 % Normal 43.0-75.0 The [facility] Comment on above: Performed By: #### C BC ####[facility] [address] [place], [place] [address]Dr. Cheryl Monzon Platelet mean volume (Bld) [Entitic vol] 9.2 fL Critically low 9.5-13.5 The [facility] Comment on above: Performed By: #### C BC ####[facility] [address] [place], [place] [address]Dr. Cheryl Monzon PLT 217 103/ul Normal 150-450 The [facility] Comment on above: Performed By: #### C BC ####[facility] [address] [place] [id number] Monzon RBC 3.84 106/ul Critically low 4.20-5.40 [facility] Comment on above: Performed By: #### C BC ####[facility] [address] [place] [address]Dr. Cheryl Monzon WBC 2.7 103/ul Critically low 4.0-11.[address] [facility] Comment on above: Performed By: #### C BC ####[facility] [address] [place] [address]Dr. Cheryl Monzon FREE T4on 09-04-2022 Free T4 [Mass/Vol] 0.83 ng/dL Normal 0.76-1.46 [facility] Comment on above: Performed By: #### F T4 #### [facility] [address] [address] [address] Cheryl Monzon GLYCOHEMOGLOBIN A1Con 2021 ADA RECOMMENDATION SEE BELOW Normal The [facility] Comment on above: Result Comment: ADA RECOMMENDED LIMIT 4.0 - 6.0 ADA THERAPEUTIC TARGET < 7.0 ACTION SUGGESTED > 7.0 Performed By: #### A 1C #### [facility] [address] [address] [address] Cheryl Monzon Glucose [Mass/Vol] 111 mg/dL Normal The [facility] Comment on above: Performed By: #### A 1C #### [facility] [address] [address] [address] Cheryl Monzon HbA1c (Bld) [Mass fraction] 5.5 % Normal 4.5-6.2 [facility] Comment on above: Performed By: #### A 1C #### [facility] [address] [address] [address] Cheryl Monzon LIPID PROFILEon 09-04-2022 CHOL-HDL RATIO NORM SEE BELOW Normal [facility] Comment on above: Result Comment: 3.3 - 4.4 LOW RISK 4.4 - 7.1 AVERAGE RISK 7.1 - 11.0 MODERATE RISK >11.0 HIGH RISK Performed By: #### T SH, LIPID, CMP ####[facility] [address] [place] [address]Dr. Cheryl Monzon Cholesterol [Mass/Vol] 201 mg/dL Critically high <=200 [facility] Comment on above: Performed By: #### T SH, LIPID, CMP ####[facility] [address] [place] [address]Dr. Lissettalden Monzon Cholesterol in HDL [Mass/Vol] 78 mg/dL Critically high 40-60 [facility] Comment on above: Performed By: #### T SH, LIPID, CMP ####[facility] [address] [place] [address]Dr. Cheryl Monzon Cholesterol in LDL [Mass/Vol] 112.8 mg/dL Normal The [facility] Comment on above: Performed By: #### T SH, LIPID, CMP ####[facility] [address] [place] [address]Dr. Cheryl Monzon Cholesterol.total/Chol esterol in HDL [Mass ratio] 2.6 {ratio} Normal [facility] Comment on above: Performed By: #### T SH, LIPID, CMP ####[facility] [address] [place] [address]Dr. Cheryl Monzon HDL NORMAL > or = 60 mg/dl - LO W CARDIOVASCULAR RISK <40 mg/dl - HIGH CARDIOVASCULAR RISK Normal [facility] Comment on above: Performed By: #### T SH, LIPID, CMP ####[facility] [address] [place] [id number]. Cheryl Monzon LDL CALC NORMAL SEE BELOW Normal The [facility] Comment on above: Result Comment: <100 mg/dl OPTIMAL 100 - 129 mg/dl NEAR OR ABOVE OPTIMAL 130 - 159 mg/dl BORDERLINE HIGH 160 - 189 mg/dl HIGH >190 mg/dl VERY HIGH Performed By: #### T SH, LIPID, CMP ####[facility] [address] [place] [id number]. Cheryl Monzon Triglyceride [Mass/Vol] 51 mg/dL Normal <=150 The [facility] Comment on above: Performed By: #### T SH, LIPID, CMP ####[facility] [address] [place] [id number]. Cheryl Monzon VLDL CALC 10.2 mg/dL Normal The [facility] Comment on above: Performed By: #### T SH, LIPID, CMP ####[facility] [address] [place], [place] [address]TqDr. Cheryl Monzon PROF 14(COMP METB)on 022 Albumin [Mass/Vol] 3.3 g/dL Critically low 3.4-5.0 Th e [facility] Comment on above: Performed By: #### T SH, LIPID, CMP #### [facility] [address] [address] [address] Cheryl Monzon Albumin/Globulin [Mass ratio] 1.0 {ratio} Normal [facility] Comment on above: Performed By: #### T SH, LIPID, CMP #### [facility] [address] [address] [address] Cheryl Monzon ALP [Catalytic activity/Vol] 94 U/L Normal 46-116 [facility] Comment on above: Performed By: #### T SH, LIPID, CMP #### [facility] [address] [address] [address] Cheryl Monzon ALT [Catalytic activity/Vol] 53 U/L Normal 14-59 [facility] Comment on above: Performed By: #### T SH, LIPID, CMP #### [facility] [address] [address] [address] Cheryl Monzon Anion gap [Moles/Vol] 8.8 mmol/L Normal [facility] Comment on above: Performed By: #### T SH, LIPID, CMP #### [facility] [address] [address] [address] Cheryl Monzon AST [Catalytic activity/Vol] 42 U/L Critically high 15-37 [facility] Comment on above: Performed By: #### T SH, LIPID, CMP #### [facility] [address] [address] [address] Cheryl Monzon Bilirubin [Mass/Vol] 0.3 mg/dL Normal 0.2-1.0 [facility] Comment on above: Performed By: #### T SH, LIPID, CMP #### [facility] [address] [address] [address] Cheryl Monzon Calcium [Mass/Vol] 8.8 mg/dL Normal 8.5-10.1 [facility] Comment on above: Performed By: #### T SH, LIPID, CMP #### [facility] [address] [address] [address] Cheryl Monzon Chloride [Moles/Vol] 106 mmol/L Normal 98-107 [facility] Comment on above: Performed By: #### T SH, LIPID, CMP #### [facility] [address] [address] [address] Cheryl Monzon CO2 [Moles/Vol] 30.7 mmol/L Normal 21.0-32.0 [facility] Comment on above: Performed By: #### T PUSHPA, LIPID, CMP #### [facility] [address] [place] [address] Dr. Cheryl Monzon Creatinine [Mass/Vol] 0.66 mg/dL Normal 0.55-1.02 [facility] Comment on above: Performed By: #### T PUSHPA, LIPID, CMP #### [facility] [address] [place] [address] Dr. Cheryl Monzon EGFR-AF LIBYAN >60 Normal >=60 [facility] Comment on above: Performed By: #### T PUSHPA, LIPID, CMP #### [facility] [address] [place] [address] Dr. Cheryl Monzon EGFR-NON AF LIBYAN >60 Normal >=60 [facility] Comment on above: Performed By: #### T PUSHPA, LIPID, CMP #### [facility] [address] [place] [address] Dr. Cheryl Monzon Globulin (S) [Mass/Vol] 3.4 g/dL Normal [facility] Comment on above: Performed By: #### T PUSHPA, LIPID, CMP #### [facility] [address] [place] [address] Dr. Cheryl Monzon Glucose [Mass/Vol] 115 mg/dL Critically high 74-106 [facility] Comment on above: Performed By: #### T SH, LIPID, CMP #### [facility] [address] [place] [address] Dr. Cheryl Monzon Potassium [Moles/Vol] 4.5 mmol/L Normal 3.5-5.1 [facility] Comment on above: Performed By: #### T PUSHPA LIPID, CMP #### [facility] [address] [place] [address] Dr. Cheryl Monzon Protein [Mass/Vol] 6.7 g/dL Normal 6.4-8.2 [facility] Comment on above: Performed By: #### T PUSHPA, LIPID, CMP #### [facility] [address] [place] [address] Dr. Cheryl Monzon Sodium [Moles/Vol] 141 mmol/L Normal 136-145 [facility] Comment on above: Performed By: #### T PUSHPA LIPID, CMP #### [facility] [address] [place] [address] Dr. Cheryl Monzon Urea nitrogen [Mass/Vol] 16.0 mg/dL Normal 7.0-18.0 [facility] Comment on above: Performed By: #### T PUSHPA, LIPID, CMP #### [facility] [address] [place] [address] Dr. Cheryl Monzon Urea nitrogen/Creatinine [Mass ratio] 24.2 mg/mg Normal The [facility] Comment on above: Performed By: #### T PUSHPA, LIPID, CMP #### [facility] [address] [place] [address] Dr. Cheryl Monzon TSHon 09-04-2022 TSH 0.009 uIU/mL Critically low 0.358-3.740 [facility] Comment on above: Performed By: #### T PUSHPA, LIPID, CMP #### [facility] [address] [place] [address] Dr. Cheryl Monzon [facility]18 SARS-CoV-2 (COVID-19) RNA ANGELA+probe Ql (Unsp spec) Not detected Normal NOT DETECTED The [facility] Comment on above: Result Comment: When diagnostic [...] for this test is supported by the [employer] Laborer of Health and Human Service's declaration that [...] used). Performed By: #### C VDTB #### [facility] [address] [place] [address] Cheryl Monzon CBC with Diffon 11-22-2021 Abs. Basophil 0.00 k/uL Normal 0.0-0.2 [facility] Comment on above: Performed By: #### C DP, CMPX, SED, LAC #### [facility] [address] [place], [place] [id number] [employer]: Jacob Campos MD Abs.Neutrophil (Seg) 2.80 k/uL Normal 2.5-7.0 [facility] Comment on above: Performed By: #### C DP, CMPX, SED, LAC #### [facility] [address] [place] [address] [employer]: Jacob Campos MD Auto Diff Performed YES Normal [facility] Comment on above: Performed By: #### C DP, CMPX, SED, LAC #### [facility] [address] [place] [address] [employer]: Jacob Campos MD Basophils/100 WBC (Bld) 1 % Normal 0-2 [facility] Comment on above: Performed By: #### C DP, CMPX, SED, LAC #### [facility] [address] [place] [address] [employer]: Jacob Campos MD Eosinophils (Bld) [#/Vol] 0.10 10*3/uL Normal 0.0-0.4 [facility] Comment on above: Performed By: #### C DP, CMPX, SED, LAC #### [facility] [address] [place] [id number] [employer]: Jacob Campos MD Eosinophils/100 WBC (Bld) 3 % Normal 0-5 [facility] Comment on above: Performed By: #### C DP, CMPX, SED, LAC #### [facility] [address] [place] [address] [employer]: Jacob Campos MD Erythrocyte distribution width (RBC) [Ratio] 13.6 % Normal 12.1-15.2 [facility] Comment on above: Performed By: #### C DP, CMPX, SED, LAC #### [facility] [address] [place] [address] [employer]: Jacob Campos MD Hematocrit (Bld) [Volume fraction] 33.4 % Low 36-46 [facility] Comment on above: Performed By: #### C DP, CMPX, SED, LAC #### [facility] [address] [place] [address] [employer]: Jacob Campos MD Hemoglobin (Bld) [Mass/Vol] 11.3 g/dL Low 12.0-16.0 [facility] Comment on above: Performed By: #### C DP, CMPX, SED, LAC #### [facility] [address] [place] [address] [employer]: Jacob Campos MD Lymphocytes (Bld) [#/Vol] 0.80 10*3/uL Low 1.0-4.8 [facility] Comment on above: Performed By: #### C DP, CMPX, SED, LAC #### [facility] [address] [place] [address] [employer]: Jacob Campos MD Lymphocytes/100 WBC (Bld) 19 % Normal 15-40 [facility] Comment on above: Performed By: #### C DP, CMPX, SED, LAC #### [facility] [address] [place] [id number] [employer]: Jacob Camops MD MCH (RBC) [Entitic mass] 30.5 pg Normal 26-34 [facility] Comment on above: Performed By: #### C DP, CMPX, SED, LAC #### [facility] [address] [place] [address] [employer]: Jcaob Campos MD MCHC (RBC) [Mass/Vol] 33.8 g/dL Normal 31-37 [facility] Comment on above: Performed By: #### C DP, CMPX, SED, LAC #### [facility] [address] [place] [address] [employer]: Jacob Campos MD MCV (RBC) [Entitic vol] 90.4 fL Normal 80-100 [facility] Comment on above: Performed By: #### C DP, CMPX, SED, LAC #### [facility] [address] [place] [address] [employer]: Jacob Campos MD Monocytes (Bld) [#/Vol] 0.50 10*3/uL Normal 0.0-1.0 [facility] Comment on above: Performed By: #### C DP, CMPX, SED, LAC #### [facility] [address] [place] [id number] [employer]: Jacob Campos MD Monocytes/100 WBC (Bld) 12 % High 4-8 [facility] Comment on above: Performed By: #### C DP, CMPX, SED, LAC #### [facility] [address] [place] [address] [employer]: Jacob Campos MD Neutrophil (Seg) 65 % Normal 47-75 [facility] Comment on above: Performed By: #### C DP, CMPX, SED, LAC #### [facility] [address] [place] [address] [employer]: Jacob Campos MD Platelets (Bld) [#/Vol] 378 10*3/uL Normal 140-450 [facility] Comment on above: Performed By: #### C DP, CMPX, SED, LAC #### [facility] [address] [place] [address] [employer]: Jacob Campos MD RBC (Bld) [#/Vol] 3.70 10*6/uL Low 4.0-5.2 [facility] Comment on above: Performed By: #### C DP, CMPX, SED, LAC #### [facility] [address] [place], [place] [id number] [employer]: Jacob Campos MD WBC (Bld) [#/Vol] 4.3 10*3/uL Normal 3.5-11.0 [facility] Comment on above: Performed By: #### C DP, CMPX, SED, LAC #### [facility] [address] [place] [address] [employer] Se[employer]ester: Jacob Campos MD Comp Metabolic Pr/rfx MGon 0 11-22-2021 (cont.) Normal [facility] Comment on above: Result Comment: Aver age GFR for 60-69 years old: 85 mL/min/1.73sq m Chronic Kidney Disease: <60 mL/min/1.73sq m Kidney failure: <15 mL/min/1.73sq m eGFR calculated using average adult body mass. Additional eGFR calculator available at: http://[email or web address]/multiple_crcl_2012.htm Performed By: #### C DP, CMPX, SED, LAC #### [facility] [address] [place], [place] [id number] [employer]ester: Jacob Campos MD Albumin [Mass/Vol] 3.5 g/dL Normal 3.5-5.2 [facility] Comment on above: Performed By: #### C DP, CMPX, SED, LAC #### [facility] [address] [place] [address] [employer] Se[employer] Tester: Jacob Campos MD Alkaline Phos 239 U/L High 35-104 [facility] Comment on above: Performed By: #### C DP, CMPX, SED, LAC #### [facility] [address] [place], [place] [id number] [employer] Se[employer] Tester: Jacob Campos MD ALT [Catalytic activity/Vol] 23 U/L Normal 5-33 [facility] Comment on above: Performed By: #### C DP, CMPX, SED, LAC #### [facility] [address] [place], [place] [phone] [employer]ester: Jacob Campos MD Anion gap [Moles/Vol] 11 mmol/L Normal 9-17 [facility] Comment on above: Performed By: #### C DP, CMPX, SED, LAC #### [facility] [address] [place] [id number] Pressure Sealer And Tester: Jacob Campos MD AST [Catalytic activity/Vol] 21 U/L Normal <32 [facility] Comment on above: Performed By: #### C DP, CMPX, SED, LAC #### [facility] [address] [place], [place] [phone] [employer] Sealer And Tester: Jacob Campos MD Bilirubin [Mass/Vol] 0.27 mg/dL Low 0.30-1.20 [facility] Comment on above: Performed By: #### C DP, CMPX, SED, LAC #### [facility] [address] [place], [place] [phone] Pressure Sealer And Tester: Jacob Campos MD BUN/CRE Ratio 22 High 9-20 [facility] Comment on above: Performed By: #### C DP, CMPX, SED, LAC #### [facility] [address] [place] [address] [employer] Sealer [employer] Tester: Jacob Campos MD Calcium [Mass/Vol] 9.5 mg/dL Normal 8.6-10.4 [facility] Comment on above: Performed By: #### C DP, CMPX, SED, LAC #### [facility] [address] [place], [place] [phone] Pressure Sealer [employer] Tester: Jacob Campos MD Chloride [Moles/Vol] 102 mmol/L Normal 98-107 [facility] Comment on above: Performed By: #### C DP, CMPX, SED, LAC #### [facility] [address] [place] [address] [employer] Sealer [employer] Tester: Jacob Campos MD CO2 [Moles/Vol] 26 mmol/L Normal 20-31 [facility] Comment on above: Performed By: #### C DP, CMPX, SED, LAC #### [facility] [address] [place] [address] Pressure Sealer And Tester: Jacob Campos MD Creatinine [Mass/Vol] 0.58 mg/dL Normal 0.50-0.90 [facility] Comment on above: Performed By: #### C DP, CMPX, SED, LAC #### [facility] [address] [place], [place] [phone] Pressure Sealer [employer] Tester: Jacob Campos MD GFR, Amer >60 Normal >60 [facility] Comment on above: Performed By: #### C DP, CMPX, SED, LAC #### [facility] [address] [place] [address] Pressure Sealer And Tester: Jacob Campos MD GFR,non Amer >60 Normal >60 [facility] Comment on above: Performed By: #### C DP, CMPX, SED, LAC #### [facility] [address] [place], [place] [phone] Pressure Sealer And Tester: Jacob Campos MD Glucose [Mass/Vol] 109 mg/dL High 70-99 [facility] Comment on above: Performed By: #### C DP, CMPX, SED, LAC #### [facility] [address] [place] [phone] Pressure Sealer And Tester: Jacob Campos MD Potassium [Moles/Vol] 3.7 mmol/L Normal 3.7-5.3 [facility] Comment on above: Performed By: #### C DP, CMPX, SED, LAC #### [facility] [address] [place] [address] Pressure Sealer And Tester: Jacob Campos MD Protein [Mass/Vol] 7.0 g/dL Normal 6.4-8.3 [facility] Comment on above: Performed By: #### C DP, CMPX, SED, LAC #### [facility] [address] [place] [address] Pressure Sealer And Tester: Jacob Campos MD Sodium [Moles/Vol] 139 mmol/L Normal 135-144 [facility] Comment on above: Performed By: #### C DP, CMPX, SED, LAC #### [facility] [address] [place] [phone] Pressure Sealer [employer] Tester: Jacob Campos MD Urea nitrogen [Mass/Vol] 13 mg/dL Normal 8-23 [facility] Comment on above: Performed By: #### C DP, CMPX, SED, LAC #### [facility] [address] [place] [phone] Pressure Sealer And Tester: Jacob Campos MD Lactic Acidon 11-22-2021 Lactate [Moles/Vol] 0.7 mmol/L Normal 0.5-2.2 [facility] Comment on above: Performed By: #### C DP, CMPX, SED, LAC #### [facility] [address] [place], [place] [phone] Pressure Sealer And Tester: Jacob Campos MD Sedimentation Rateon 022 Sedimentation Rate 48 mm High 0-30 [facility] Comment on above: Performed By: #### C DP, CMPX, SED, LAC #### [facility] [address] [place] [address] Pressure Sealer And Tester: Jacob Campos MD Urinalysis, Routineon 2021 Bilirubin, SemiQt,Ur Negative Normal NEG [facility] Comment on above: Performed By: #### U A #### [facility] [address] [place] [address] Pressure Sealer And Tester: Jacob Campos MD Blood, Urine Negative Normal NEG [facility] Comment on above: Performed By: #### U A #### [facility] [address] [place], [place] [id number] Pressure Sealer And Tester: Jacob Campos MD Clarity (U) Clear Normal CLEAR [facility] Comment on above: Performed By: #### U A #### [facility] [address] [place], [place] [phone] Pressure Sealer And Tester: Jacob Campos MD Color (U) Yellow Normal YEL [facility] Comment on above: Performed By: #### U A #### [facility] [address] [place], [place] [id number] Pressure Sealer And Tester: Jacob Campos MD Comment Normal [facility] Comment on above: Performed By: #### U A #### [facility] [address] [place], [place] [phone] Pressure Sealer [employer] Tester: Jacob Campos MD Glucose Ql (U) Negative Normal NEG [facility] Comment on above: Performed By: #### U A #### [facility] [address] [place], [place] [phone] Pressure Sealer And Tester: Jacob Campos MD Ketones Ql (U) Negative Normal NEG [facility] Comment on above: Performed By: #### U A #### [facility] [address] [place], [place] [phone] Pressure Sealer And Tester: Jacob Campos MD Leukocyte esterase Test strip Ql (U) Negative Normal NEG [facility] Comment on above: Performed By: #### U A #### [facility] [address] [place], [place] [phone] Pressure Sealer And Tester: Jacob Campos MD Nitrite,Ur Negative Normal NEG [facility] Comment on above: Performed By: #### U A #### [facility] [address] [place], [place] [phone] Pressure Sealer And Tester: Jacob Campos MD PH,Ur 6.5 Normal 5.0-8.0 [facility] Comment on above: Performed By: #### U A #### [facility] [address] [place], [place] [phone] Pressure Sealer And Tester: Jacob Campos MD Protein Ql (U) Negative Normal NEG [facility] Comment on above: Performed By: #### U A #### [facility] [address] [place], [place] [phone] Pressure Sealer And Tester: Jacob Campos MD Spec. [place],Ur 1.015 Normal 1.005-1.030 [facility] Comment on above: Performed By: #### U A #### [facility] [address] [place], [place] [phone] Pressure Sealer And Tester: Jacob Campos MD Urobilinogen,Ur Normal Normal NORM [facility] Comment on above: Performed By: #### U A #### [facility] [address] [place], [place] [phone] Pressure Sealer And Tester: Jacob Campos MD Basic Metabolic Panelon Calcium [Mass/Vol] 9.4 mg/dL Normal 8.2-10.2 [facility] Comment on above: Performed By: #### C BC, BMP #### [facility] [address] Chloride [Moles/Vol] 101 mmol/L Normal 95-114 [facility] Comment on above: Performed By: #### C BC, BMP #### [facility] [address] CO2 [Moles/Vol] 26.3 mmol/L Normal 22.0-30.0 [facility] Comment on above: Performed By: #### C BC, BMP #### [address] Creatinine [Mass/Vol] 0.72 mg/dL Normal 0.44-1.03 [facility] Comment on above: Performed By: #### C BC, BMP #### [address] Creatinine Clr Calc Pharmacy 76.81 [facility] Comment on above: Result Comment: PERF ORMED BY: [place] [address] PATHOLOGIST AREA SALES MANAGER CLAIRE ANTHONY M.D. Performed By: #### C BC, BMP #### [address] Estimated GFR ( Damon > 60 [facility] Comment on above: Result Comment: GFR estimated reference range: According to KDOQI guidelines, <60 ml/min/1.73m2 is sufficient to diagnose a patient with chronic kidney disease. Performed By: #### C BC, BMP #### [address] Estimated GFR (Non- Am > 60 [facility] Comment on above: Performed By: #### C BC, BMP #### [facility] [address] [place] [address] [place] Glucose [Mass/Vol] 104 mg/dL High 70-100 [facility] Comment on above: Result Comment: [place] Glucose Reference Range is dependent on time and content of last meal. Glucose of more than 200 mg/dL in a nonstressed, ambulatory subject supports the diagnosis of Diabetes Mellitus. ADA recommended reference range Performed By: #### C BC, BMP #### [facility] [address] [place] [address] [facility] Potassium [Moles/Vol] 3.8 mmol/L Normal 3.5-5.1 [facility] Comment on above: Performed By: #### C BC, BMP #### [facility] [address] Sodium [Moles/Vol] 138 mmol/L Normal 136-146 [facility] Comment on above: Performed By: #### C BC, BMP #### [facility] [address] [place] [phone] [facility] Urea nitrogen [Mass/Vol] 13 mg/dL Normal 9-23 [facility] Comment on above: Performed By: #### C BC, BMP #### [facility] [address] [place] [phone] [facility] CBC with Diffon 11-21-2021 Abs.Imm.Granulocyte NOT REPORTED Normal 0.00-0.30 [facility] Comment on above: Performed By: #### C DP, CMPX, SED, LAC #### [facility] [address] [place], [place] [phone] Pressure Sealer [employer] Tester: Jacob Campos MD Immature Granulocyte NOT REPORTED Normal 0 [facility] Comment on above: Performed By: #### C DP, CMPX, SED, LAC #### [facility] [address] [place], [place] [phone] Pressure Sealer And Tester: Jacob Campos MD MPV NOT REPORTED Normal 6.0-12.0 [facility] Comment on above: Performed By: #### C DP, CMPX, SED, LAC #### [facility] [address] [place], [place] [phone] Pressure Sealer And Tester: Jacob Campos MD NRBC Automated NOT REPORTED Normal [facility] Comment on above: Performed By: #### C DP, CMPX, SED, LAC #### [facility] [address] [place] [address] Pressure Sealer And Tester: Jacob Campos MD Platelet Comment NOT REPORTED Normal [facility] Comment on above: Performed By: #### C DP, CMPX, SED, LAC #### [facility] [address] [place] [address] Pressure Sealer And Tester: Jacob Campos MD RBC morphology finding Nom (Bld) NOT REPORTED Normal [facility] Comment on above: Performed By: #### C DP, CMPX, SED, LAC #### [facility] [address] [place] [address] Pressure Sealer And Tester: Jacob Campos MD WBC Morphology NOT REPORTED Normal [facility] Comment on above: Performed By: #### C DP, CMPX, SED, LAC #### [facility] [address] [place] [address] Pressure Sealer And Tester: Jacob Campos MD Comp Metabolic Pr/rfx MGon 0 11-21-2021 Albumin/Glob Ratio NOT REPORTED Normal 1.0-2.5 [facility] Comment on above: Performed By: #### C DP, CMPX, SED, LAC #### [facility] [address] [place] [address] Pressure Sealer And Tester: Jacob Campos MD Staging: NOT REPORTED Normal [facility] Comment on above: Performed By: #### C DP, CMPX, SED, LAC #### [facility] [address] [place] [address] Pressure Sealer And Tester: Jacob Campos MD Complete Blood Count Auto Di ffon 11-21-2021 Basophils (Bld) [#/Vol] 0.0 10*3/uL Normal 0.0-0.2 [facility] Comment on above: Result Comment: PERF ORMED BY: [place] [address] PATHOLOGIST ARE[employer] SALES MANAGER CLAIRE ANTHONY M.D. Performed By: #### C BC, BMP #### [address] Basophils/100 WBC (Bld) 0.7 % Normal . [facility] Comment on above: Performed By: #### C BC, BMP #### [address] Eosinophils (Bld) [#/Vol] 0.1 10*3/uL Normal 0.0-0.45 [facility] Comment on above: Performed By: #### C SANTANA, BMP #### [address] Eosinophils/100 WBC (Bld) 2.8 % Normal . [facility] Comment on above: Performed By: #### C SANTANA, BMP #### [address] Erythrocyte distribution width (RBC) [Ratio] 13.2 % Normal 11.9-15.3 [facility] Comment on above: Performed By: #### C SANTANA, BMP #### [address] Hematocrit (Bld) [Volume fraction] 35.7 % Normal 34.0-46.4 [facility] Comment on above: Performed By: #### C BC, BMP #### [address] Hemoglobin (Bld) [Mass/Vol] 11.9 g/dL Normal 11.8-15.4 [facility] Comment on above: Performed By: #### C BC, BMP #### [address] Lymphocytes (Bld) [#/Vol] 0.8 10*3/uL Low 1.00-4.8 [facility] Comment on above: Performed By: #### C BC, BMP #### [place] [address] [place] Lymphocytes/100 WBC (Bld) 16.7 % Normal . [facility] Comment on above: Performed By: #### C BC, BMP #### [facility] [address] MCH (RBC) [Entitic mass] 30.2 pg Normal 24.7-34.3 [facility] Comment on above: Performed By: #### C BC, BMP #### [facility] [address] MCV (RBC) [Entitic vol] 90.6 fL Normal 80-100 [facility] Comment on above: Performed By: #### C BC, BMP #### [address] Mean Corpuscular HGB Conc 33.3 g/dL Normal 32.0-35.0 [facility] Comment on above: Performed By: #### C BC, BMP #### [address] Monocytes (Bld) [#/Vol] 0.4 10*3/uL Normal 0.0-0.8 [facility] Comment on above: Performed By: #### C BC, BMP #### [address] Monocytes/100 WBC (Bld) 9.1 % Normal . [facility] Comment on above: Performed By: #### C BC, BMP #### [address] Neutrophils (Bld) [#/Vol] 3.4 10*3/uL Normal 1.8-7.7 [facility] Comment on above: Performed By: #### C BC, BMP #### [address] Neutrophils/100 WBC (Bld) 70.7 % Normal . [facility] Comment on above: Performed By: #### C BC, BMP #### [address] Nucleated RBC/100 WBC (Bld) [Ratio] 0.0 % Normal 0-0.5 [facility] Comment on above: Performed By: #### C BC, BMP #### [address] Platelet mean volume (Bld) [Entitic vol] 6.9 fL Normal 6.3-10.7 [facility] Comment on above: Performed By: #### C BC, BMP #### [address] Platelets (Bld) [#/Vol] 423 10*3/uL Normal 150-450 [facility] Comment on above: Performed By: #### C BC, BMP #### [address] RBC (Bld) [#/Vol] 3.94 10*6/uL Normal 3.60-5.00 [facility] Comment on above: Performed By: #### C BC, BMP #### [address] WBC (Bld) [#/Vol] 4.8 10*3/uL Normal 4.5-11.0 [facility] Comment on above: Performed By: #### C BC, BMP #### [address] Dipstick and Microscopicon 0 11-21-2021 Appearance (U) Clear Normal Clear [facility] Comment on above: Order Comment: Name Collection Type:: Clean-Voided Midstream Performed By: #### C BC, BMP #### [address] Bacteria,Urine None Seen Normal None Seen [facility] Comment on above: Order Comment: Name Collection Type:: Clean-Voided Midstream Performed By: #### C BC, BMP #### [address] Bilirubin,Urine Negative Normal Negative [facility] Comment on above: Order Comment: Name Collection Type:: Clean-Voided Midstream Performed By: #### C BC, BMP #### [address] [place] [address] [place] Color (U) Yellow Normal Yellow [facility] Comment on above: Order Comment: Name Collection Type:: Clean-Voided Midstream Performed By: #### C BC, BMP #### [address] Glucose Ql (U) Normal Normal Normal [facility] Comment on above: Order Comment: Name Collection Type:: Clean-Voided Midstream Performed By: #### C BC, BMP #### [address] Hyaline Casts,Urine 0-8 Normal 0-8 [facility] Comment on above: Order Comment: Name Collection Type:: Clean-Voided Midstream Result Comment: PERF ORMED BY: [place] [address] PATHOLOGIST ARE[employer] SALES MANAGER CLAIRE ANTHONY M.D. Performed By: #### C BC, BMP #### [address] Ketones Ql (U) Negative Normal Negative [facility] Comment on above: Order Comment: Name Collection Type:: Clean-Voided Midstream Performed By: #### C BC, BMP #### [address] Leukocyte esterase Test strip Ql (U) 1+ High Negative [facility] Comment on above: Order Comment: Name Collection Type:: Clean-Voided Midstream Performed By: #### C BC, BMP #### [place] [address] [place] Nitrite,Urine Negative Normal Negative [facility] Comment on above: Order Comment: Name Collection Type:: Clean-Voided Midstream Performed By: #### C BC, BMP #### [place] [address] [place] Occult Blood,Urine Negative Normal Negative [facility] Comment on above: Order Comment: Name Collection Type:: Clean-Voided Midstream Result Comment: PERF ORMED BY: [place] [address] PATHOLOGIST ARE[employer] SALES MANAGER CLAIRE ANTHONY M.D. Performed By: #### C BC, BMP #### [address] pH (U) 6.5 [pH] Normal 5.0-9.0 [facility] Comment on above: Order Comment: Name Collection Type:: Clean-Voided Midstream Performed By: #### C BC, BMP #### [address] Protein,Urine Negative Normal Negative [facility] Comment on above: Order Comment: Name Collection Type:: Clean-Voided Midstream Performed By: #### C BC, BMP #### [address] RBC,Urine 1-2 Normal 0-4 [facility] Comment on above: Order Comment: Name Collection Type:: Clean-Voided Midstream Performed By: #### C BC, BMP #### [address] Specificy [place],Urine 1.014 Normal 1.001-1.030 [facility] Comment on above: Order Comment: Name Collection Type:: Clean-Voided Midstream Performed By: #### C BC, BMP #### [address] Squamous Epithelial Cell,Urine None Seen Normal 0-2 [facility] Comment on above: Order Comment: Name Collection Type:: Clean-Voided Midstream Performed By: #### C BC, BMP #### [address] Urobilinogen,Urine Normal Normal Normal [facility] Comment on above: Order Comment: Name Collection Type:: Clean-Voided Midstream Performed By: #### C BC, BMP #### [address] WBC,Urine 1-2 Normal 0-4 [facility] Comment on above: Order Comment: Name Collection Type:: Clean-Voided Midstream Performed By: #### C BC, BMP #### [address] Complete Blood Count Auto Di ffon 11-04-2021 Basophils (Bld) [#/Vol] 0.0 10*3/uL Normal 0.0-0.2 [facility] Comment on above: Result Comment: PERF ORMED BY: [place] [address] PATHOLOGIST ARE[employer] SALES MANAGER CLAIRE ANTHONY M.D. Performed By: #### C BC, BMP #### [address] Basophils/100 WBC (Bld) 0.1 % Normal . [facility] Comment on above: Performed By: #### C BC, BMP #### [address] Eosinophils (Bld) [#/Vol] 0.1 10*3/uL Normal 0.0-0.45 [facility] Comment on above: Performed By: #### C BC, BMP #### [address] Eosinophils/100 WBC (Bld) 1.3 % Normal . [facility] Comment on above: Performed By: #### C BC, BMP #### [address] Erythrocyte distribution width (RBC) [Ratio] 13.0 % Normal 11.9-15.3 [facility] Comment on above: Performed By: #### C BC, BMP #### [address] Hematocrit (Bld) [Volume fraction] 27.5 % Low 34.0-46.4 [facility] Comment on above: Performed By: #### C BC, BMP #### [address] Hemoglobin (Bld) [Mass/Vol] 9.3 g/dL Low 11.8-15.4 [facility] Comment on above: Performed By: #### C BC, BMP #### [address] Lymphocytes (Bld) [#/Vol] 0.5 10*3/uL Low 1.00-4.8 [facility] Comment on above: Performed By: #### C BC, BMP #### [address] Lymphocytes/100 WBC (Bld) 6.3 % Normal . [facility] Comment on above: Performed By: #### C BC, BMP #### [address] MCH (RBC) [Entitic mass] 31.1 pg Normal 24.7-34.3 [facility] Comment on above: Performed By: #### C BC, BMP #### [address] MCV (RBC) [Entitic vol] 92.0 fL Normal 80-100 [facility] Comment on above: Performed By: #### C BC, BMP #### [address] Mean Corpuscular HGB Conc 33.8 g/dL Normal 32.0-35.0 [facility] Comment on above: Performed By: #### C BC, BMP #### [address] Monocytes (Bld) [#/Vol] 0.8 10*3/uL Normal 0.0-0.8 [facility] Comment on above: Performed By: #### C BC, BMP #### [address] Monocytes/100 WBC (Bld) 10.8 % Normal . [facility] Comment on above: Performed By: #### C BC, BMP #### [address] Neutrophils (Bld) [#/Vol] 5.9 10*3/uL Normal 1.8-7.7 [facility] Comment on above: Performed By: #### C BC, BMP #### [address] Neutrophils/100 WBC (Bld) 81.5 % Normal . [facility] Comment on above: Performed By: #### C SANTANA, BMP #### [address] Nucleated RBC/100 WBC (Bld) [Ratio] 0.0 % Normal 0-0.5 [facility] Comment on above: Performed By: #### C SANTANA, BMP #### [address] Platelet mean volume (Bld) [Entitic vol] 7.4 fL Normal 6.3-10.7 [facility] Comment on above: Performed By: #### C SANTANA, BMP #### [address] Platelets (Bld) [#/Vol] 135 10*3/uL Low 150-450 [facility] Comment on above: Performed By: #### C SANTANA, BMP #### [address] RBC (Bld) [#/Vol] 2.99 10*6/uL Low 3.60-5.00 [facility] Comment on above: Performed By: #### C SANTANA, BMP #### [address] WBC (Bld) [#/Vol] 7.3 10*3/uL Normal 4.5-11.0 [facility] Comment on above: Performed By: #### C SANTANA, BMP #### [address] Electrolyteson 11-04-2021 Chloride [Moles/Vol] 106 mmol/L Normal 95-114 [facility] Comment on above: Performed By: #### C SANTANA, BMP #### [address] CO2 [Moles/Vol] 25.2 mmol/L Normal 22.0-30.0 [facility] Comment on above: Result Comment: PERF ORMED BY: [place] [address] PATHOLOGIST ARE[employer] SALES MANAGER CLAIRE ANTHONY M.D. Performed By: #### C BC, BMP #### [facility] [address] Potassium [Moles/Vol] 3.7 mmol/L Normal 3.5-5.1 [facility] Comment on above: Performed By: #### C BC, BMP #### [facility] [address] Sodium [Moles/Vol] 137 mmol/L Normal 136-146 [facility] Comment on above: Performed By: #### C BC, BMP #### [facility] [address] Complete Blood Count Auto Di ffon 11-03-2021 Basophils (Bld) [#/Vol] 0.0 10*3/uL Normal 0.0-0.2 [facility] Comment on above: Result Comment: PERF ORMED BY: [place] [address] PATHOLOGIST ARE[employer] SALES MANAGER CLAIRE ANTHONY M.D. Performed By: #### C BC, BMP #### [address] Basophils/100 WBC (Bld) 0.1 % Normal . [facility] Comment on above: Performed By: #### C BC, BMP #### [facility] [address] [place] [address] [place] Eosinophils (Bld) [#/Vol] 0.0 10*3/uL Normal 0.0-0.45 [facility] Comment on above: Performed By: #### C BC, BMP #### [facility] [address] [place] [address] [place] Eosinophils/100 WBC (Bld) 0.3 % Normal . [facility] Comment on above: Performed By: #### C BC, BMP #### [address] Erythrocyte distribution width (RBC) [Ratio] 12.8 % Normal 11.9-15.3 [facility] Comment on above: Performed By: #### C BC, BMP #### [facility] [address] Hematocrit (Bld) [Volume fraction] 29.5 % Low 34.0-46.4 [facility] Comment on above: Performed By: #### C BC, BMP #### [facility] [address] Hemoglobin (Bld) [Mass/Vol] 9.9 g/dL Low 11.8-15.4 [facility] Comment on above: Performed By: #### C BC, BMP #### [facility] [address] Lymphocytes (Bld) [#/Vol] 0.5 10*3/uL Low 1.00-4.8 [facility] Comment on above: Performed By: #### C BC, BMP #### [facility] [address] Lymphocytes/100 WBC (Bld) 7.4 % Normal . [facility] Comment on above: Performed By: #### C BC, BMP #### [facility] [address] [place] [address] [place] MCH (RBC) [Entitic mass] 30.9 pg Normal 24.7-34.3 [facility] Comment on above: Performed By: #### C BC, BMP #### [facility] [address] MCV (RBC) [Entitic vol] 92.1 fL Normal 80-100 [facility] Comment on above: Performed By: #### C BC, BMP #### [facility] [address] Mean Corpuscular HGB Conc 33.6 g/dL Normal 32.0-35.0 [facility] Comment on above: Performed By: #### C BC, BMP #### [facility] [address] Monocytes (Bld) [#/Vol] 0.7 10*3/uL Normal 0.0-0.8 [facility] Comment on above: Performed By: #### C BC, BMP #### [facility] [address] [place] [id number] [place] Monocytes/100 WBC (Bld) 10.0 % Normal . [facility] Comment on above: Performed By: #### C BC, BMP #### [facility] [address] [place] [phone] [place] Neutrophils (Bld) [#/Vol] 5.8 10*3/uL Normal 1.8-7.7 [facility] Comment on above: Performed By: #### C BC, BMP #### [facility] [address] [place] [address] [place] Neutrophils/100 WBC (Bld) 82.2 % Normal . [facility] Comment on above: Performed By: #### C BC, BMP #### [facility] [address] [place] [address] [place] Nucleated RBC/100 WBC (Bld) [Ratio] 0.0 % Normal 0-0.5 [facility] Comment on above: Performed By: #### C SANTANA, BMP #### [facility] [address] [place] [address] [place] Platelet mean volume (Bld) [Entitic vol] 8.1 fL Normal 6.3-10.7 [facility] Comment on above: Performed By: #### C BC, BMP #### [facility] [address] [place] [id number] [place] Platelets (Bld) [#/Vol] 153 10*3/uL Normal 150-450 [facility] Comment on above: Performed By: #### C BC, BMP #### [facility] [address] [place] [id number] [place] RBC (Bld) [#/Vol] 3.21 10*6/uL Low 3.60-5.00 [facility] Comment on above: Performed By: #### C BC, BMP #### [facility] [address] [place] [id number] [place] WBC (Bld) [#/Vol] 7.0 10*3/uL Normal 4.5-11.0 [facility] Comment on above: Performed By: #### C SANTANA, BMP #### [facility] [address] Electrolyteson 11-03-2021 Chloride [Moles/Vol] 104 mmol/L Normal 95-114 [facility] Comment on above: Performed By: #### C SANTANA, BMP #### [facility] [address] CO2 [Moles/Vol] 28.5 mmol/L Normal 22.0-30.0 [facility] Comment on above: Result Comment: PERF ORMED BY: [place] [address] PATHOLOGIST AREA SALES MANAGER CLAIRE ANTHONY M.D. Performed By: #### C SANTANA, BMP #### [address] Potassium [Moles/Vol] 4.2 mmol/L Normal 3.5-5.1 [facility] Comment on above: Performed By: #### C SANTANA, BMP #### [address] Sodium [Moles/Vol] 139 mmol/L Normal 136-146 [facility] Comment on above: Performed By: #### C SANTANA, BMP #### [address] Viet 11-02-2021 L -- ---- Specimen: [id number] Received: 11/02/21 Status: GARRETT Alejo Num: [id number] Spec Type: Surgical Subm Dr: Mary Gatica Jr, DO Tissues: A Gross Only (BONE/TISSUE RT HIP) Procedures: Level 1 Gross ---- Patient Age/Sex Location Account Attending Physician ---- Isabel Waddell 61/F 4N [id number] Mary Gatica Jr, DO ---- SPEC NUM: [id number] RECD: 11/02/21 STATUS: GARRETT ALEJO NUM: [id number] FRANCISCA: 11/02/21 [facility] DR: Mary Gatica Jr, DO ENTERED: 11/02/[address] [facility] [address]: MARTIN TYPE: Surgical DEPT: S [...] only. (JUAN/DORA) Microscopic Description Gross examination only. [id number] ---- ---- Specimen: [id number] Received: 11/02/21 Status: GARRETT Alejo Num: [id number] Spec Type: Surgical Subm Dr: Mary Gatica Jr, DO Tissues: A Gross Only (BONE/TISSUE RT HIP) Procedures: Level 1 Gross ---- Patient: Isaebl Waddell [id number] (Continued) ---- Signed (signature on file) Claire Anthony MD 11/02/21 1559 [facility] LeukoReduced RBCon LeukoReduced RBC READY [facility] Type and Screenon 11-02-2021 ABO and Rh group Nom (Bld) Blood group O Rh(D) positive [facility] Comment on above: Order Comment: Trans fuse now? N XR low pelvis w/RT x-table h ipon 11-02-2021 XR low pelvis w/RT x-table hip [facility] [address] XRay Report Signed Patient: Isabel Waddell MR#: [id number] : 1960 Acct:[id number] Age/Sex: 61 / F ADM Date: 11/02/21 Loc: Room: [address] [place] [address] Type: REG [facility] Attending Dr: Mary Gatica Jr, DO Ordering Provider: Mary Gatica Jr, DO Date of Service: 11/02/21 XR/XR low pelvis w/RT x-table hip: Total hip, do in PACU Copies to: Mary Gatica Jr, DO XR low pelvis w/RT [...] Shiva Stafford M.D.11/02/2021 2:41 PM Dictation Location: [place] [address] Transcribed By: [facility] 11/02/211440 Dictated By: Shiva Stafford II, MD 11/02/211439 Signed By: 11/02/211440 Normal [facility] COVID-19 FRMCon 10-31-2021 SARS-CoV-2 (COVID-19) RNA ANGELA+probe Ql (Unsp spec) Negative Normal Negative [facility] Comment on above: Order Comment: Healt hcare Worker?: N Result Comment: Testing for SARS-CoV-2 by RT-PCR This test was developed and its performance characteristics determined by [employer] and validated at the [facility]. This test has not been FDA [...] is terminated or revoked sooner. PERFORMED BY: [place] [address] PATHOLOGIST AREA SALES MANAGER CLAIRE ANTHONY M.D. Performed By: #### C , BMP #### [place] [id number] [facility] Basic Metabolic Panelon 11-2 Calcium [Mass/Vol] 9.3 mg/dL Normal 8.2-10.2 [facility] Comment on above: Result Comment: PERF ORMED BY: [address] [address] PATHOLOGIST AREA SALES MANAGER JIANLAN SUN M.D. Performed By: #### C BC, BMP #### [facility] [address] Chloride [Moles/Vol] 104 mmol/L Normal 95-114 [facility] Comment on above: Performed By: #### C BC, BMP #### [facility] [address] CO2 [Moles/Vol] 28.3 mmol/L Normal 22.0-30.0 [facility] Comment on above: Performed By: #### C BC, BMP #### [address] Creatinine [Mass/Vol] 0.61 mg/dL Normal 0.44-1.03 [facility] Comment on above: Performed By: #### C BC, BMP #### [address] Estimated GFR ( Damon > 60 [facility] Comment on above: Result Comment: GFR estimated reference range: According to KDOQI guidelines, <60 ml/min/1.73m2 is sufficient to diagnose a patient with chronic kidney disease. Performed By: #### C BC, BMP #### [address] Estimated GFR (Non- Am > 60 [facility] Comment on above: Performed By: #### C BC, BMP #### [place] [address] [place] Glucose [Mass/Vol] 100 mg/dL Normal 70-100 [facility] Comment on above: Result Comment: [place] Glucose Reference Range is dependent on time and content of last meal. Glucose of more than 200 mg/dL in a nonstressed, ambulatory subject supports the diagnosis of Diabetes Mellitus. ADA recommended reference range Performed By: #### C BC, BMP #### [address] Potassium [Moles/Vol] 4.7 mmol/L Normal 3.5-5.1 [facility] Comment on above: Performed By: #### C BC, BMP #### [address] [place] [address] [place] Sodium [Moles/Vol] 140 mmol/L Normal 136-146 [facility] Comment on above: Performed By: #### C BC, BMP #### [address] Urea nitrogen [Mass/Vol] 17 mg/dL Normal 9-23 [facility] Comment on above: Performed By: #### C BC, BMP #### [address] Complete Blood Count Auto Di ffon 10-15-2021 Basophils (Bld) [#/Vol] 0.0 10*3/uL Normal 0.0-0.2 [facility] Comment on above: Result Comment: PERF ORMED BY: [place] [address] PATHOLOGIST AREA SALES MANAGER CLAIRE ANTHONY M.D. Performed By: #### C SANTANA, BMP #### [address] Basophils/100 WBC (Bld) 0.4 % Normal . [facility] Comment on above: Performed By: #### C SANTANA, BMP #### [address] Eosinophils (Bld) [#/Vol] 0.1 10*3/uL Normal 0.0-0.45 [facility] Comment on above: Performed By: #### C BC, BMP #### [address] Eosinophils/100 WBC (Bld) 2.1 % Normal . [facility] Comment on above: Performed By: #### C BC, BMP #### [address] Erythrocyte distribution width (RBC) [Ratio] 13.0 % Normal 11.9-15.3 [facility] Comment on above: Performed By: #### C BC, BMP #### [address] Hematocrit (Bld) [Volume fraction] 36.8 % Normal 34.0-46.4 [facility] Comment on above: Performed By: #### C BC, BMP #### [facility] [address] Hemoglobin (Bld) [Mass/Vol] 12.4 g/dL Normal 11.8-15.4 [facility] Comment on above: Performed By: #### C BC, BMP #### [facility] [address] Lymphocytes (Bld) [#/Vol] 0.5 10*3/uL Low 1.00-4.8 [facility] Comment on above: Performed By: #### C BC, BMP #### [address] Lymphocytes/100 WBC (Bld) 18.8 % Normal . [facility] Comment on above: Performed By: #### C BC, BMP #### [address] MCH (RBC) [Entitic mass] 31.3 pg Normal 24.7-34.3 [facility] Comment on above: Performed By: #### C BC, BMP #### [address] MCV (RBC) [Entitic vol] 92.8 fL Normal 80-100 [facility] Comment on above: Performed By: #### C BC, BMP #### [address] Mean Corpuscular HGB Conc 33.7 g/dL Normal 32.0-35.0 [facility] Comment on above: Performed By: #### C BC, BMP #### [address] Monocytes (Bld) [#/Vol] 0.3 10*3/uL Normal 0.0-0.8 [facility] Comment on above: Performed By: #### C BC, BMP #### [address] Monocytes/100 WBC (Bld) 10.8 % Normal . [facility] Comment on above: Performed By: #### C BC, BMP #### [facility] [address] [place] [address] [place] Neutrophils (Bld) [#/Vol] 1.9 10*3/uL Normal 1.8-7.7 [facility] Comment on above: Performed By: #### C BC, BMP #### [facility] [address] [place] [id number] [place] Neutrophils/100 WBC (Bld) 67.9 % Normal . [facility] Comment on above: Performed By: #### C BC, BMP #### [facility] [address] [place] [address] [place] Nucleated RBC/100 WBC (Bld) [Ratio] 0.1 % Normal 0-0.5 [facility] Comment on above: Performed By: #### C BC, BMP #### [facility] [address] [place] [address] [place] Platelet mean volume (Bld) [Entitic vol] 7.4 fL Normal 6.3-10.7 [facility] Comment on above: Performed By: #### C BC, BMP #### [facility] [address] [place] [address] [place] Platelets (Bld) [#/Vol] 198 10*3/uL Normal 150-450 [facility] Comment on above: Performed By: #### C BC, BMP #### [facility] [address] [place] [address] [place] RBC (Bld) [#/Vol] 3.97 10*6/uL Normal 3.60-5.00 [facility] Comment on above: Performed By: #### C BC, BMP #### [facility] [address] [place] [address] [place] WBC (Bld) [#/Vol] 2.8 10*3/uL Low 4.5-11.0 [facility] Comment on above: Performed By: #### C BC, BMP #### [facility] [address] [place] [address] [place] Dipstick and Microscopicon 1 1 Appearance (U) Turbid Critically abnormal Clear [facility] Comment on above: Order Comment: Name Collection Type:: Clean-Voided Midstream Performed By: #### A DDONUAPLUS #### [place] [address] [place] Bacteria,Urine None Seen Normal None Seen [facility] Comment on above: Order Comment: Name Collection Type:: Clean-Voided Midstream Performed By: #### A DDONUAPLUS #### [place] [address] [place] Bilirubin,Urine Negative Normal Negative [facility] Comment on above: Order Comment: Name Collection Type:: Clean-Voided Midstream Performed By: #### A DDONUAPLUS #### [address] Color (U) Yellow Normal Yellow [facility] Comment on above: Order Comment: Name Collection Type:: Clean-Voided Midstream Performed By: #### A DDONUAPLUS #### [place] [address] [place] Glucose Ql (U) Normal Normal Normal [facility] Comment on above: Order Comment: Name Collection Type:: Clean-Voided Midstream Performed By: #### A DDONUAPLUS #### [place] [address] [place] Hyaline Casts,Urine None Seen Normal 0-8 [facility] Comment on above: Order Comment: Name Collection Type:: Clean-Voided Midstream Result Comment: PERF ORMED BY: [place] [address] PATHOLOGIST AREA SALES MANAGER CLAIRE ANTHONY M.D. Performed By: #### A DDONUAPLUS #### [place] [address] [place] Ketones Ql (U) Negative Normal Negative [facility] Comment on above: Order Comment: Name Collection Type:: Clean-Voided Midstream Performed By: #### A DDONUAPLUS #### [address] Leukocyte esterase Test strip Ql (U) 1+ High Negative [facility] Comment on above: Order Comment: Name Collection Type:: Clean-Voided Midstream Performed By: #### A DDONUAPLUS #### [address] Nitrite,Urine Negative Normal Negative [facility] Comment on above: Order Comment: Name Collection Type:: Clean-Voided Midstream Performed By: #### A DDONUAPLUS #### [address] Occult Blood,Urine Negative Normal Negative [facility] Comment on above: Order Comment: Name Collection Type:: Clean-Voided Midstream Result Comment: PERF ORMED BY: [place] [address] PATHOLOGIST AREA SALES MANAGER CLAIRE ANTHONY M.D. Performed By: #### A DDONUAPLUS #### [address] pH (U) 7.5 [pH] Normal 5.0-9.0 [facility] Comment on above: Order Comment: Name Collection Type:: Clean-Voided Midstream Performed By: #### A DDONUAPLUS #### [address] Protein,Urine Negative Normal Negative [facility] Comment on above: Order Comment: Name Collection Type:: Clean-Voided Midstream Performed By: #### A DDONUAPLUS #### [address] RBC,Urine 1-2 Normal 0-4 [facility] Comment on above: Order Comment: Name Collection Type:: Clean-Voided Midstream Performed By: #### A DDONUAPLUS #### [address] Specificy [place],Urine 1.017 Normal 1.001-1.030 [facility] Comment on above: Order Comment: Name Collection Type:: Clean-Voided Midstream Performed By: #### A DDONUAPLUS #### [facility] [address] [place] [address] Squamous Epithelial Cell,Urine None Seen Normal 0-2 [facility] Comment on above: Order Comment: Name Collection Type:: Clean-Voided Midstream Performed By: #### A DDONUAPLUS #### [facility] [address] [place] [address] Urobilinogen,Urine Normal Normal Normal [facility] Comment on above: Order Comment: Name Collection Type:: Clean-Voided Midstream Performed By: #### A DDONUAPLUS #### [facility] [address] [place] [address] WBC,Urine 3-4 Normal 0-4 [facility] Comment on above: Order Comment: Name Collection Type:: Clean-Voided Midstream Performed By: #### A DDONUAPLUS #### [facility] [address] [place] [address] PST Type and Screenon 2020 ABO and Rh group Nom (Bld) Blood group O Rh(D) positive Normal [facility] Comment on above: Order Comment: Date of Surgery: [id number] # of PRBC units on hold?: 2 Result Comment: PERF ORMED BY: [place] [address] PATHOLOGIST AREA SALES MANAGER CLAIRE ANTHONY M.D. XR hip RT min 2V(w/wo pelvis )*on 10-15-2021 XR hip RT min 2V(w/wo pelvis)* [place] [address] XRay Report Signed Patient: Isabel Waddell MR#: [id number] : 1960 Acct:[id number] Age/Sex: 61 / F ADM Date: 10/15/21 Loc: PS Room: Type: [facility] Attending Dr: Mary Gatica Jr, DO Ordering Provider: Mary Gatica Jr, DO Date of Service: 10/15/21 XR/XR hip RT min 2V(w/wo pelvis)*: DJD RT HIP Copies to: Mary Gatica Jr, DO 2 views RIGHT hip plain film COMPARISON:None HISTORY:RIGHT hip pain for years. RIGHT hip joint space narrowing present. Marginal spurring identified. Articular surfaces preserved. No fracture or dislocation. No soft tissue abnormality. XR/XR hip RT min 2V(w/wo pelvis)* IMPRESSION:Advanced RIGHT hip degeneration. Impression dictated by: Yusef Fernandez M.D.10/15/2021 2:21 PM Dictation Location: [place] [address] Transcribed By: [facility] 10/15/21 142 Dictated By: Yusef Fernandez DO 10/15/21 1420 Signed By: 10/15/21 1421 Normal [facility] XR tibia/fibula BIon 021 XR tibia/fibula BI [facility] [address] XRay Report Signed Patient: Isabel Waddell MR#: [id number] : 1960 Acct:[id number] Age/Sex: 61 / F ADM Date: 08/22/21 Loc: X Room: Type: [facility] Attending Dr: Mary Gatica Jr, DO Ordering Provider: Mary Gatica Jr, DO Date of Service: 08/22/21 XR/XR femur BI: PST ([id number]) XR/XR tibia/fibula BI: PST Copies to: Mayr Gatica Jr, DO BILATERAL TIB-FIB AND FEMUR [...] Mckayla Rai M.D.08/22/2021 3:17 PM Dictation Location: [place] [address] Transcribed By: [facility] 08/22/211516 Dictated By: Mckayla Rai MD 08/22/211512 Signed By: 08/22/211516 Normal [facility] Basic Metabolic Panelon 10-0 Calcium [Mass/Vol] 9.1 mg/dL Normal 8.2-10.2 [facility] Comment on above: Result Comment: PERF ORMED BY: [place] [address] PATHOLOGIST AREA SALES MANAGER CLAIRE ANTHONY M.D. Performed By: #### C BC, BMP #### [address] Chloride [Moles/Vol] 102 mmol/L Normal 95-114 [facility] Comment on above: Performed By: #### C BC, BMP #### [address] CO2 [Moles/Vol] 27.8 mmol/L Normal 22.0-30.0 [facility] Comment on above: Performed By: #### C BC, BMP #### [address] Creatinine [Mass/Vol] 0.63 mg/dL Normal 0.44-1.03 [facility] Comment on above: Performed By: #### C BC, BMP #### [facility] [address] [place] [address] [place] Estimated GFR ( Damon > 60 [facility] Comment on above: Result Comment: GFR estimated reference range: According to KDOQI guidelines, <60 ml/min/1.73m2 is sufficient to diagnose a patient with chronic kidney disease. Performed By: #### C BC, BMP #### [place] [address] [place] Estimated GFR (Non- Am > 60 [facility] Comment on above: Performed By: #### C BC, BMP #### [address] Glucose [Mass/Vol] 101 mg/dL High 70-100 [facility] Comment on above: Result Comment: [facility] Glucose Reference Range is dependent on time and content of last meal. Glucose of more than 200 mg/dL in a nonstressed, ambulatory subject supports the diagnosis of Diabetes Mellitus. ADA recommended reference range Performed By: #### C BC, BMP #### [address] Potassium [Moles/Vol] 4.2 mmol/L Normal 3.5-5.1 [facility] Comment on above: Performed By: #### C BC, BMP #### [address] Sodium [Moles/Vol] 138 mmol/L Normal 136-146 [facility] Comment on above: Performed By: #### C BC, BMP #### [address] Urea nitrogen [Mass/Vol] 18 mg/dL Normal 9-23 [facility] Comment on above: Performed By: #### C BC, BMP #### [address] Complete Blood Count Auto Di ffon 08-20-2021 Basophils (Bld) [#/Vol] 0.0 10*3/uL Normal 0.0-0.2 [facility] Comment on above: Result Comment: PERF ORMED BY: [place] [address] PATHOLOGIST AREA SALES MANAGER CLAIRE ANTHONY M.D. Performed By: #### C BC, BMP #### [address] Basophils/100 WBC (Bld) 0.1 % Normal . [facility] Comment on above: Performed By: #### C BC, BMP #### [address] Eosinophils (Bld) [#/Vol] 0.1 10*3/uL Normal 0.0-0.45 [facility] Comment on above: Performed By: #### C BC, BMP #### [facility] [address] Eosinophils/100 WBC (Bld) 2.5 % Normal . [facility] Comment on above: Performed By: #### C BC, BMP #### [facility] [address] Erythrocyte distribution width (RBC) [Ratio] 13.6 % Normal 11.9-15.3 [facility] Comment on above: Performed By: #### C BC, BMP #### [address] Hematocrit (Bld) [Volume fraction] 34.5 % Normal 34.0-46.4 [facility] Comment on above: Performed By: #### C BC, BMP #### [address] Hemoglobin (Bld) [Mass/Vol] 11.9 g/dL Normal 11.8-15.4 [facility] Comment on above: Performed By: #### C BC, BMP #### [address] Lymphocytes (Bld) [#/Vol] 0.6 10*3/uL Low 1.00-4.8 [facility] Comment on above: Performed By: #### C BC, BMP #### [place] [address] [place] Lymphocytes/100 WBC (Bld) 15.9 % Normal . [facility] Comment on above: Performed By: #### C BC, BMP #### [facility] [address] [place] [address] [place] MCH (RBC) [Entitic mass] 31.3 pg Normal 24.7-34.3 [facility] Comment on above: Performed By: #### C BC, BMP #### [address] MCV (RBC) [Entitic vol] 90.5 fL Normal 80-100 [facility] Comment on above: Performed By: #### C BC, BMP #### [facility] [address] [place] [id number] [place] Mean Corpuscular HGB Conc 34.6 g/dL Normal 32.0-35.0 [facility] Comment on above: Performed By: #### C BC, BMP #### [facility] [address] [place] [id number] [place] Monocytes (Bld) [#/Vol] 0.5 10*3/uL Normal 0.0-0.8 [facility] Comment on above: Performed By: #### C BC, BMP #### [facility] [address] [place] [address] [place] Monocytes/100 WBC (Bld) 13.2 % Normal . [facility] Comment on above: Performed By: #### C BC, BMP #### [facility] [address] [place] [address] [place] Neutrophils (Bld) [#/Vol] 2.7 10*3/uL Normal 1.8-7.7 [facility] Comment on above: Performed By: #### C BC, BMP #### [facility] [address] [place] [id number] [place] Neutrophils/100 WBC (Bld) 68.3 % Normal . [facility] Comment on above: Performed By: #### C BC, BMP #### [facility] [address] [place] [phone] [place] Nucleated RBC/100 WBC (Bld) [Ratio] 0.1 % Normal 0-0.5 [facility] Comment on above: Performed By: #### C BC, BMP #### [facility] [address] [place] [phone] [place] Platelet mean volume (Bld) [Entitic vol] 7.8 fL Normal 6.3-10.7 [facility] Comment on above: Performed By: #### C BC, BMP #### [facility] [address] [place] [id number] [place] Platelets (Bld) [#/Vol] 182 10*3/uL Normal 150-450 [facility] Comment on above: Performed By: #### C BC, BMP #### [facility] [address] [place] [address] [place] RBC (Bld) [#/Vol] 3.81 10*6/uL Normal 3.60-5.00 [facility] Comment on above: Performed By: #### C BC, BMP #### [facility] [address] WBC (Bld) [#/Vol] 4.0 10*3/uL Low 4.5-11.0 [facility] Comment on above: Performed By: #### C BC, BMP #### [address] Dipstick and Microscopicon 1 Appearance (U) Turbid Critically abnormal Clear [facility] Comment on above: Order Comment: Comme nt urine C S if indicated by UA Name Collection Type:: Clean-Voided Midstream Performed By: #### A DDONUAPLUS #### [facility] [address] [place] [address] Bacteria,Urine None Seen Normal None Seen [facility] Comment on above: Order Comment: Comme nt urine C S if indicated by UA Name Collection Type:: Clean-Voided Midstream Performed By: #### A DDONUAPLUS #### [facility] [address] [place] [address] Bilirubin,Urine Negative Normal Negative [facility] Comment on above: Order Comment: Comme nt urine C S if indicated by UA Name Collection Type:: Clean-Voided Midstream Performed By: #### A DDONUAPLUS #### [facility] [address] [place] [address] Color (U) Yellow Normal Yellow [facility] Comment on above: Order Comment: Comme nt urine C S if indicated by UA Name Collection Type:: Clean-Voided Midstream Performed By: #### A DDONUAPLUS #### [facility] [address] [place] [address] [place] Glucose Ql (U) Normal Normal Normal [facility] Comment on above: Order Comment: Comme nt urine C S if indicated by UA Name Collection Type:: Clean-Voided Midstream Performed By: #### A DDONUAPLUS #### [facility] [address] [place] [address] Hyaline Casts,Urine 0-8 Normal 0-8 [facility] Comment on above: Order Comment: Comme nt urine C S if indicated by UA Name Collection Type:: Clean-Voided Midstream Result Comment: PERF ORMED BY: [place] [address] PATHOLOGIST ARE[employer] SALES MANAGER CLAIRE ANTHONY M.D. Performed By: #### A DDONUAPLUS #### [address] Ketones Ql (U) Negative Normal Negative [facility] Comment on above: Order Comment: Comme nt urine C S if indicated by UA Name Collection Type:: Clean-Voided Midstream Performed By: #### A DDONUAPLUS #### [address] Leukocyte esterase Test strip Ql (U) 3+ High Negative [facility] Comment on above: Order Comment: Comme nt urine C S if indicated by UA Name Collection Type:: Clean-Voided Midstream Performed By: #### A DDONUAPLUS #### [address] Nitrite,Urine Negative Normal Negative [facility] Comment on above: Order Comment: Comme nt urine C S if indicated by UA Name Collection Type:: Clean-Voided Midstream Performed By: #### A DDONUAPLUS #### [address] Occult Blood,Urine Negative Normal Negative [facility] Comment on above: Order Comment: Comme nt urine C S if indicated by UA Name Collection Type:: Clean-Voided Midstream Result Comment: PERF ORMED BY: [place] [address] PATHOLOGIST AREA SALES MANAGER CLAIRE ANTHONY M.D. Performed By: #### A DDONUAPLUS #### [address] pH (U) 8.5 [pH] Normal 5.0-9.0 [facility] Comment on above: Order Comment: Comme nt urine C S if indicated by UA Name Collection Type:: Clean-Voided Midstream Performed By: #### A DDONUAPLUS #### [address] Protein,Urine Negative Normal Negative [facility] Comment on above: Order Comment: Comme nt urine C S if indicated by UA Name Collection Type:: Clean-Voided Midstream Performed By: #### A DDONUAPLUS #### [address] RBC,Urine 3-4 Normal 0-4 [facility] Comment on above: Order Comment: Comme nt urine C S if indicated by UA Name Collection Type:: Clean-Voided Midstream Performed By: #### A DDONUAPLUS #### [address] Specificy [place],Urine 1.016 Normal 1.001-1.030 [facility] Comment on above: Order Comment: Comme nt urine C S if indicated by UA Name Collection Type:: Clean-Voided Midstream Performed By: #### A DDONUAPLUS #### [address] Squamous Epithelial Cell,Urine 0-1 Normal 0-2 [facility] Comment on above: Order Comment: Comme nt urine C S if indicated by UA Name Collection Type:: Clean-Voided Midstream Performed By: #### A DDONUAPLUS #### [address] Urobilinogen,Urine Normal Normal Normal [facility] Comment on above: Order Comment: Comme nt urine C S if indicated by UA Name Collection Type:: Clean-Voided Midstream Performed By: #### A DDONUAPLUS #### [address] WBC,Urine 20-49 High 0-4 [facility] Comment on above: Order Comment: Comme nt urine C S if indicated by UA Name Collection Type:: Clean-Voided Midstream Performed By: #### A DDONUAPLUS #### [facility] [address] [place] [address] ECG 12 lead ECGon 08-20-2021 ECG 12 lead ECG [facility] [place] [address] [place] [address] Electrocardiograph Report Signed Patient: Isabel Waddell MR#: [id number] : 1960 Acct:[id number] Age/Sex: 61 / F ADM Date: 08/20/21 Loc: Room: Type: [facility] Attending Dr: Mary Gatica Jr, DO Ordering Provider: Mary Gatica Jr, DO Date of Service: 08/20/2103/07/1035 [...] When compared with ECG of 06-SEP-2020 08:27, MA interval has decreased T wave amplitude has increased in Inferior leads Confirmed by YUSEF GIRALDO DO ([id number]) on 08/20/2021 4:50:03 PM Referred By: LAURA Electronically Signed By:YUSEF GIRALDO DO Transcribed By: MUS Signed By Yusef Giraldo DO 08/20 1650 Normal [facility] PST Type and Screenon 2020 ABO and Rh group Nom (Bld) Blood group O Rh(D) positive [facility] Comment on above: Order Comment: Date of Surgery: [id number] # of PRBC units on hold?: 2 Result Comment: PERF ORMED BY: [place] [address] PATHOLOGIST AREA SALES MANAGER CLAIRE ANTHONY M.D. Urine Cultureon 08-20-2021 Bacteria identified Cx Nom (U) Comment do C S if indicated by UA ORGANISM: Staphylococcus aureus (O:STAAUR) [place] Count 30,000 Aerobic MARELY Charge (PC45) --- [...] RESISTANT TO ALL B-LACTAM DRUGS. PERFORMED BY: [place] [address] PATHOLOGIST AREA SALES MANAGER CLAIRE ANTHONY M.D. [facility] Comment on above: Performed By: #### C UU #### [address] Cult,Urineon 07-08-2021 Cult,Urine Specimen Description .URINE Special Requests NOT REPORTED Culture NO SIGNIFICANT GROWTH Report Status FINAL 07/08/2021 [facility] Comment on above: Performed By: #### U RC #### [facility] [address] [place] [address] Pressure Sealer And Tester: Rei Jules MD [facility] [address] [place] [address] Pressure Sealer And Tester: Jacob Campos MD CBC Auto DifferentialOrdered By: Mayra Michel on 07-07-2021 [employer] # 0.70 High [employer] [facility] Work Phone: Absolute Immature Granulocyte NOT REPORTED [employer] Work Phone: Absolute Lymph # 0.40 Low [employer] Work Phone: Absolute Yates # 0.50 [employer] Work Phone: Basophils (Bld) [#/Vol] 0.00 10*3/uL [employer] Work Phone: Basophils/100 WBC (Bld) 1 % 0 - 2 % [employer] Work Phone: Differential Type YES [facility] Work Phone: Eosinophils/100 WBC (Bld) 14 % High 0 - 5 % [employer] Work Phone: Hematocrit (Bld) [Volume fraction] 40.1 % 36 - 46 % [employer] Work Phone: Hemoglobin.gastrointes tinal spec 1 Ql (Stl) 13.8 g/dL 12.0 - 16.0 g/dL [employer] Work Phone: Immature Granulocytes NOT REPORTED 0 % M [employer] Work Phone: Interpretation and review of laboratory results Abnormal [employer] Phone: Lymphocytes/100 WBC (Bld) 8 % Low 15 - 40 % [employer] Work Phone: MCH (RBC) [Entitic mass] 30.7 pg 26 - 34 pg [employer] Work Phone: MCHC (RBC) [Mass/Vol] 34.5 g/dL 31 - 37 g/dL M [employer] Work Phone: MCV (RBC) [Entitic vol] 89.1 fL 80 - 100 fL [employer] Work Phone: Monocytes/100 WBC (Bld) 10 % High 4 - 8 % [employer] Phone: NRBC Automated NOT REPORTED per 100 WBC [employer] [facility] Work Phone: Platelet distribution width (Bld) [Ratio] 13.0 % 12.1 - 15.2 % [employer] Phone: Platelet Estimate NOT REPORTED [employer] Phone: Platelet mean volume (Bld) [Entitic vol] NOT REPORTED 6.0 - 12.0 fL [employer] Phone: Platelets (Bld) [#/Vol] 157 10*3/uL [employer] Phone: RBC (Bld) [#/Vol] 4.50 10*6/uL 4.0 - 5.2 m/uL [employer] Phone: RBC (Bld) [#/Vol] NOT REPORTED [employer] Phone: Segmented neutrophils/100 WBC (Bld) 67 % 47 - 75 % [employer] Phone: Segs Absolute 3.40 [employer] Work Phone: WBC (Bld) [#/Vol] 5.1 10*3/uL [employer] Phone: WBC (Bld) [#/Vol] NOT REPORTED [employer] Phone: [employer] Phone: CBC with Diffon 07-07-2021 Abs. Basophil 0.00 k/uL Normal 0.0-0.2 [facility] Comment on above: Performed By: #### C JODY PAPPAS #### [facility] [address] [place] [address] Pressure Sealer And Tester: Jacob Campos MD Abs.Neutrophil (Seg) 3.40 k/uL Normal 2.5-7.0 [facility] Comment on above: Performed By: #### C DP, CP #### [facility] [address] [place] [address] Pressure Sealer And Tester: Jacob Campos MD Auto Diff Performed YES Normal [facility] Comment on above: Performed By: #### C DP, CP #### [facility] [address] [place] [address] Pressure Sealer And Tester: Jacob Campos MD Basophils/100 WBC (Bld) 1 % Normal 0-2 [facility] Comment on above: Performed By: #### C DP, CP #### [facility] [address] [place] [address] Pressure Sealer And Tester: Jacob Campos MD Eosinophils (Bld) [#/Vol] 0.70 10*3/uL High 0.0-0.4 [facility] Comment on above: Performed By: #### C DP, CP #### [facility] [address] [place] [address] Pressure Sealer And Tester: Jacob Campos MD Eosinophils/100 WBC (Bld) 14 % High 0-5 [facility] Comment on above: Performed By: #### C DP, CP #### [facility] [address] [place] [address] Pressure Sealer And Tester: Jacob Campos MD Erythrocyte distribution width (RBC) [Ratio] 13.0 % Normal 12.1-15.2 [facility] Comment on above: Performed By: #### C DP, CP #### [facility] [address] [place] [address] Pressure Sealer And Tester: Jacob Campos MD Hematocrit (Bld) [Volume fraction] 40.1 % Normal 36-46 [facility] Comment on above: Performed By: #### C DP, CP #### [facility] [address] [place] [address] Pressure Sealer And Tester: Jacob Campos MD Hemoglobin (Bld) [Mass/Vol] 13.8 g/dL Normal 12.0-16.0 [facility] Comment on above: Performed By: #### C DP, CP #### [facility] [address] [place], [place] [phone] Pressure Sealer And Tester: Jacob Campos MD Lymphocytes (Bld) [#/Vol] 0.40 10*3/uL Low 1.0-4.8 [facility] Comment on above: Performed By: #### C DP, CP #### [facility] [address] [place] [address] Pressure Sealer And Tester: Jacob Campos MD Lymphocytes/100 WBC (Bld) 8 % Low 15-40 [facility] Comment on above: Performed By: #### C DP, CP #### [facility] [address] [place] [address] Pressure Sealer And Tester: Jacob Campos MD MCH (RBC) [Entitic mass] 30.7 pg Normal 26-34 [facility] Comment on above: Performed By: #### C DP, CP #### [facility] [address] [place] [address] Pressure Sealer And Tester: Jacob Campos MD MCHC (RBC) [Mass/Vol] 34.5 g/dL Normal 31-37 [facility] Comment on above: Performed By: #### C DP, CP #### [facility] [address] [place] [address] Pressure Sealer And Tester: Jacob Campos MD MCV (RBC) [Entitic vol] 89.1 fL Normal 80-100 [facility] Comment on above: Performed By: #### C DP, CP #### [facility] [address] [place] [address] Pressure Sealer And Tester: Jacob Campos MD Monocytes (Bld) [#/Vol] 0.50 10*3/uL Normal 0.0-1.0 [facility] Comment on above: Performed By: #### C DP, CP #### [facility] [address] [place] [address] [phone] Pressure Sealer And Tester: Jacob Campos MD Monocytes/100 WBC (Bld) 10 % High 4-8 [facility] Comment on above: Performed By: #### C DP, CP #### [facility] [address] [place] [address] ([phone] Pressure Sealer And Tester: Jacob Campos MD Neutrophil (Seg) 67 % Normal 47-75 [facility] Comment on above: Performed By: #### C DP, CP #### [facility] [address] [place] [address] (542) Pressure Sealer And Tester: Jacob Campos MD Platelets (Bld) [#/Vol] 157 10*3/uL Normal 140-450 [facility] Comment on above: Performed By: #### C DP, CP #### [facility] [address] [place] [address] ([phone]) Pressure Sealer And Tester: Jacob Campos MD RBC (Bld) [#/Vol] 4.50 10*6/uL Normal 4.0-5.2 [facility] Comment on above: Performed By: #### C DP, CP #### [facility] [address] [place] [address] (538) Pressure Sealer And Tester: Jacob Campos MD WBC (Bld) [#/Vol] 5.1 10*3/uL Normal 3.5-11.0 [facility] Comment on above: Performed By: #### C DP, CP #### [facility] [address] [place] [address] ([phone] Pressure Sealer And Tester: Jacob Campos MD Abs.Imm.Granulocyte NOT REPORTED Normal 0.00-0.30 [facility] Comment on above: Performed By: #### C DP, CP #### [facility] [address] [place], [place] [phone] Pressure Sealer And Tester: Jacob Campos MD Immature Granulocyte NOT REPORTED Normal 0 [facility] Comment on above: Performed By: #### C DP, CP #### [facility] [address] [place], [place] [phone] Pressure Sealer And Tester: Jacob Campos MD MPV NOT REPORTED Normal 6.0-12.0 [facility] Comment on above: Performed By: #### C DP, CP #### [facility] [address] [place], [place] [phone] Pressure Sealer And Tester: Jacob Campos MD NRBC Automated NOT REPORTED Normal [facility] Comment on above: Performed By: #### C DP, CP #### [facility] [address] [place], [place] [phone] Pressure Sealer And Tester: Jacob Campos MD Platelet Estimate NOT REPORTED Normal [facility] Comment on above: Performed By: #### C DP, CP #### [facility] [address] [place], [place] [phone] Pressure Sealer And Tester: Jacob Campos MD RBC morphology finding Nom (Bld) NOT REPORTED Normal [facility] Comment on above: Performed By: #### C DP, CP #### [facility] [address] [place], [place] [phone] Pressure Sealer And Tester: Jacob Campos MD WBC Morphology NOT REPORTED Normal [facility] Comment on above: Performed By: #### C DP, CP #### [facility] [address] [place] [address] Pressure Sealer And Tester: Jacob Campos MD Comp Metabolic Profon 2020 (cont.) Normal [facility] Comment on above: Result Comment: Aver age GFR for 60-69 years old: 85 mL/min/1.73sq m Chronic Kidney Disease: <60 mL/min/1.73sq m Kidney failure: <15 mL/min/1.73sq m eGFR calculated using average adult body mass. Additional eGFR calculator available at: http://www.Skimble.[employer]/multiple_crcl_2012.htm Performed By: #### C DP, CP #### [facility] [address] [place], [place] [phone] Pressure Sealer And Tester: Jacob Campos MD Albumin [Mass/Vol] 3.9 g/dL Normal 3.5-5.2 [facility] Comment on above: Performed By: #### C DP, CP #### [facility] [address] [place], [place] [phone] Pressure Sealer And Tester: Jacob Campos MD Alkaline Phos 94 U/L Normal 35-104 [facility] Comment on above: Performed By: #### C DP, CP #### [facility] [address] [place], [place] [phone] Pressure Sealer And Tester: Jacob Campos MD ALT [Catalytic activity/Vol] 31 U/L Normal 5-33 [facility] Comment on above: Performed By: #### C DP, CP #### [facility] [address] [place], [place] [phone] Pressure Sealer And Tester: Jacob Campos MD Anion gap [Moles/Vol] 10 mmol/L Normal 9-17 [facility] Comment on above: Performed By: #### C DP, CP #### [facility] [address] [place], [place] [phone] Pressure Sealer And Tester: Jacob Campos MD AST [Catalytic activity/Vol] 28 U/L Normal <32 [facility] Comment on above: Performed By: #### C DP, CP #### [facility] [address] [place], [place] [phone] Pressure Sealer And Tester: Jacob Campos MD Bilirubin [Mass/Vol] 0.46 mg/dL Normal 0.30-1.20 [facility] Comment on above: Performed By: #### C DP, CP #### [facility] [address] [place], [place] [phone] Pressure Sealer And Tester: Jacob Campos MD BUN/CRE Ratio 27 High 9-20 [facility] Comment on above: Performed By: #### C DP, CP #### [facility] [address] [place], [place] [phone] Pressure Sealer And Tester: Jacob Campos MD Calcium [Mass/Vol] 9.7 mg/dL Normal 8.6-10.4 [facility] Comment on above: Performed By: #### C DP, CP #### [facility] [address] [place], [place] [phone] Pressure Sealer And Tester: Jacob Campos MD Chloride [Moles/Vol] 107 mmol/L Normal 98-107 [facility] Comment on above: Performed By: #### C DP, CP #### [facility] [address] [place], [place] [phone] Pressure Sealer And Tester: Jacob Campos MD CO2 [Moles/Vol] 25 mmol/L Normal 20-31 [facility] Comment on above: Performed By: #### C DP, CP #### [facility] [address] [place], [place] [phone] Pressure Sealer And Tester: Jacob Campos MD Creatinine [Mass/Vol] 0.60 mg/dL Normal 0.50-0.90 [facility] Comment on above: Performed By: #### C DP, CP #### [facility] [address] [place], [place] [phone] Pressure Sealer And Tester: Jacob Campos MD GFR, Amer >60 Normal >60 [facility] Comment on above: Performed By: #### C DP, CP #### [facility] [address] [place], [place] [phone] Pressure Sealer And Tester: Jacob Campos MD GFR,non Amer >60 Normal >60 [facility] Comment on above: Performed By: #### C DP, CP #### [facility] [address] [place], [place] [phone] Pressure Sealer And Tester: Jacob Campos MD Glucose [Mass/Vol] 122 mg/dL High 70-99 [facility] Comment on above: Performed By: #### C DP, CP #### [facility] [address] [place], [place] [phone] Pressure Sealer And Tester: Jacob Campos MD Potassium [Moles/Vol] 3.8 mmol/L Normal 3.7-5.3 [facility] Comment on above: Performed By: #### C DP, CP #### [facility] [address] [place], [place] [phone] Pressure Sealer And Tester: Jacob Campos MD Protein [Mass/Vol] 6.9 g/dL Normal 6.4-8.3 [facility] Comment on above: Performed By: #### C DP, CP #### [facility] [address] [place], [place] [phone] Pressure Sealer And Tester: Jacob Campos MD Sodium [Moles/Vol] 142 mmol/L Normal 135-144 [facility] Comment on above: Performed By: #### C DP, CP #### [facility] [address] [place], [place] 1963190 Pressure Sealer And Tester: Jacob Campos MD Urea nitrogen [Mass/Vol] 16 mg/dL Normal 8-23 [facility] Comment on above: Performed By: #### C DP, CP #### [facility] [address] [place] [address] Pressure Sealer And Tester: Jacob Campos MD Albumin/Glob Ratio NOT REPORTED Normal 1.0-2.5 [facility] Comment on above: Performed By: #### C DP, CP #### [facility] [address] [place], [place] [phone] Pressure Sealer And Tester: Jacob Campos MD Staging: NOT REPORTED Normal [facility] Comment on above: Performed By: #### C DP, CP #### [facility] [address] [place] [address] Pressure Sealer And Tester: Jacob Campos MD Comprehensive Metabolic Pane lOrdered By: Mayra Michel on 07-07-2021 Albumin [Mass/Vol] 3.9 g/dL 3.5 - 5.2 g/dL [facility] Phone: Albumin/Globulin Ratio NOT REPORTED [facility] Phone: ALP (Bld) [Catalytic activity/Vol] 94 U/L 35 - 104 U/L [facility] Phone: ALT [Catalytic activity/Vol] 31 U/L 5 - 33 U/L [facility] Phone: Anion gap [Moles/Vol] 10 mmol/L 9 - 17 mmol/L [facility] Phone: AST [Catalytic activity/Vol] 28 U/L <32 [employer] Phone: Bilirubin [Mass/Vol] 0.46 mg/dL 0.30 - 1.20 mg/dL [facility] Phone: Calcium [Mass/Vol] 9.7 mg/dL 8.6 - 10. 4 mg/dL [facility] Phone: Chloride [Moles/Vol] 107 mmol/L 98 - 10 7 mmol/L [facility] Phone: CO2 [Moles/Vol] 25 mmol/L 20 - 31 mmol/L [facility] Phone: Creatinine [Mass/Vol] 0.6 mg/dL 0.50 - 0.90 mg/dL [facility] Phone: Free PSA/Total PSA [Mass fraction] 6.9 g/dL 6.4 - 8.3 g/dL [facility] Phone: GFR >60 >60 mL/min [employer] Phone: GFR Non- >60 >60 mL/min [employer] Phone: GFR/1.73 sq M.predicted MDRD (S/P/Bld) [Vol rate/Area] [employer] Phone: Comment on above: Average GFR for 60-6 9 years old: 85 mL/min/1.73sq m Chronic Kidney Disease: <60 mL/min/1.73sq m Kidney failure: <15 mL/min/1.73sq m eGFR calculated using average adult body mass. Additional eGFR calculator available at: http://www.Iizuu/[employer]_crcl_2012.htm GFR/1.73 sq M.predicted MDRD (S/P/Bld) [Vol rate/Area] NOT REPORTED [employer] Phone: Glucose [Mass/Vol] 122 mg/dL High 70 - 99 mg/dL [employer] Phone: Interpretation and review of laboratory results Abnormal [employer] Phone: Potassium [Moles/Vol] 3.8 mmol/L 3.7 - 5.3 mmol/L [employer] Phone: Sodium [Moles/Vol] 142 mmol/L 135 - 144 mmol/L [employer] Phone: Urea nitrogen (BldV) [Mass/Vol] 16 mg/dL 8 - 23 mg/dL [employer] Phone: Urea nitrogen/Creatinine (Bld) [Mass ratio] 27 High [employer] Phone: [employer] Phone: Microscopic UrinalysisOrdere d By: Mayra Michel on 07-07-2021 - [employer] Work Phone: Amorphous, UA NOT REPORTED None [employer] Work Phone: Bacteria, UA 2+ Abnormal None [facility] Work Phone: Casts UA NOT REPORTED /LPF [facility] Work Phone: Crystals, UA NOT REPORTED None /HPF [facility] Work Phone: Epithelial Cells UA 5 TO 10 /HPF [facility] Work Phone: Interpretation and review of laboratory results Abnormal [facility] Work Phone: Mucus, UA 1+ Abnormal None [facility] Work Phone: Other Observations UA NOT REPORTED NOT REQ. M [facility] Work Phone: RBC, UA 5 TO 10 [facility] Work Phone: Renal Epithelial, UA NOT REPORTED 0 /HPF [facility] Work Phone: Trichomonas, UA NOT REPORTED None [facility] [employer] Work Phone: WBC, UA 2 TO 5 0 /HPF [facility] Work Phone: Yeast, UA NOT REPORTED None [facility] Work Phone: [facility] Work Phone: UrinalysisOrdered By: Olamide Michel on 07-07-2021 Bilirubin Urine Negative NEGATIVE [facility] Work Phone: Color, UA YELLOW YELLOW [facility] Work Phone: Glucose, Ur Negative NEGATIVE [facility] Work Phone: Interpretation and review of laboratory results Abnormal [facility] Work Phone: Ketones Ql (U) Negative NEGATIVE [facility] Work Phone: Leukocyte esterase Test strip Ql (U) 1+ Abnormal NEGATIVE [facility] Work Phone: Nitrite, Urine Negative NEGATIVE [facility] Work Phone: pH, UA 6.0 [employer] Phone: Protein, UA TRACE Abnormal NEGATIVE [facility] Phone: Specific [place], UA 1.020 [employer] Phone: Turbidity UA CLEAR CLEAR [facility] Phone: Urinalysis Comments [facility] Phone: Urine Hgb TRACE Abnormal NEGATIVE [facility] Phone: Urobilinogen, Urine Normal Normal [facility] Phone: [facility] Phone: Urinalysis, Routineon 2020 Bilirubin, SemiQt,Ur Negative Normal NEG [facility] Comment on above: Performed By: #### U MICAO, UA #### [facility] [address] [place] [address] Pressure Sealer And Tester: Jacob Campos MD Blood, Urine TRACE Abnormal NEG [facility] Comment on above: Performed By: #### U MICAO, UA #### [facility] [address] [facility] [place] [address] Pressure Sealer And Tester: Jacob Campos MD Clarity (U) CLEAR Normal CLEAR [facility] Comment on above: Performed By: #### U MICAO, UA #### [facility] [address] [place] [address] Pressure Sealer And Tester: Jacob Campos MD Color (U) YELLOW Normal YEL [facility] Comment on above: Performed By: #### U MICAO, UA #### [facility] [address] [place] [address] Pressure Sealer And Tester: Jacob Campos MD Comment Normal [facility] Comment on above: Performed By: #### U MICAO, UA #### [facility] [address] [place] [address] Pressure Sealer And Tester: Jacob Campos MD Glucose Ql (U) Negative Normal NEG [facility] Comment on above: Performed By: #### U MICAO, UA #### [facility] [address] [place], [place] [phone] Pressure Sealer And Tester: Jacob Campos MD Ketones Ql (U) Negative Normal NEG [facility] Comment on above: Performed By: #### U MICAO, UA #### [facility] [address] [place] [address] Pressure Sealer And Tester: Jacob Campos MD Leukocyte esterase Test strip Ql (U) 1+ Abnormal NEG [facility] Comment on above: Performed By: #### U MICAO, UA #### [facility] [address] [place] [address] Pressure Sealer And Tester: Jacob Campos MD Nitrite,Ur Negative Normal NEG [facility] Comment on above: Performed By: #### U MICAO, UA #### [facility] [address] [place] [address] Pressure Sealer And Tester: Jacob Campos MD PH,Ur 6.0 Normal 5.0-8.0 [facility] Comment on above: Performed By: #### U MICAO, UA #### [facility] [address] [place] [address] Pressure Sealer And Tester: Jacob Campos MD Protein Ql (U) TRACE Abnormal NEG [facility] Comment on above: Performed By: #### U MICAO, UA #### [facility] [address] [place] [address] Pressure Sealer And Tester: Jacob Campos MD Spec. [place],Ur 1.020 Normal 1.005-1.030 [facility] Comment on above: Performed By: #### U MICAO, UA #### [facility] [address] [place] [address] Pressure Sealer And Tester: Jacob Campos MD Urobilinogen,Ur Normal Normal NORM [facility] Comment on above: Performed By: #### U EULALIAO, UA #### [facility] [address] [place], [place] [phone] [employer] Sealer [employer] Tester: Jacob Campos MD Urinalysis,Microon 1 ----- Normal [facility] Comment on above: Performed By: #### U MICAO, UA #### [facility] [address] [place], [place] [id number] Pressure Sealer And Tester: Jacob Campos MD Bacteria 2+ Abnormal NONE [facility] Comment on above: Performed By: #### U MICAO, UA #### [facility] [address] [place], [place] 1939390 Pressure Sealer And Tester: Jacob Campos MD Epithelial cells LM Ql (Urine sed) 5 TO 10 Normal [facility] Comment on above: Performed By: #### U MICAO, UA #### [facility] [address] [place], [place] [id number] Pressure Sealer And Tester: Jacob Campos MD Mucus Strands 1+ Abnormal NONE [facility] Comment on above: Performed By: #### U MICAO, UA #### [facility] [address] [place], [place] [id number] Pressure Sealer And Tester: Jacob Campos MD Urine RBC's 5 TO 10 Normal 0-2 [facility] Comment on above: Performed By: #### U MICAO, UA #### [facility] [address] [place], [place] [id number] Pressure Sealer And Tester: Jacob Campos MD Urine WBC's 2 TO 5 Normal 0 [facility] Comment on above: Performed By: #### U MICAO, UA #### [facility] [address] [place], [place] [id number] Pressure Sealer And Tester: Jacob Campos MD Amorphous sediment LM Ql (Urine sed) NOT REPORTED Normal NONE [facility] Comment on above: Performed By: #### U EULALIAO, UA #### [facility] [address] [place] [address] Pressure Sealer And Tester: Jacob Campos MD Casts NOT REPORTED Normal [facility] Comment on above: Performed By: #### U EULALIAO, UA #### [facility] [address] [place], [place] [id number] Pressure Sealer And Tester: Jacob Campos MD Crystals LM Nom (Urine sed) NOT REPORTED Normal NONE [facility] Comment on above: Performed By: #### U EULALIAO, UA #### [facility] [address] [place], [place] [id number] Pressure Sealer And Tester: Jacob Campos MD Epithelial, Renal NOT REPORTED Normal 0 [facility] Comment on above: Performed By: #### U EULALIAO, UA #### [facility] [address] [place], [place] [id number] Pressure Sealer And Tester: Jacob Campos MD Other Observations NOT REPORTED Normal NREQ [facility] Comment on above: Performed By: #### U EULALIAO, UA #### [facility] [address] [place], [place] [phone] Pressure Sealer And Tester: Jacob Campos MD Trichomonas NOT REPORTED Normal NONE [facility] Comment on above: Performed By: #### U EULALIAO, UA #### [facility] [address] [place], [place] [id number] Pressure Sealer And Tester: Jacob Campos MD Yeast NOT REPORTED Normal NONE [facility] Comment on above: Performed By: #### U EULALIAO, UA #### [facility] [address] [place], [place] [id number] Pressure Sealer And Tester: Jacob Campos MD XR hand RT min 3V*on 021 XR hand RT min 3V* [facility] Main [place] [id number] XRay Report Signed Patient: Isabel Waddell MR#: [id number] : 1960 Acct:[id number] Age/Sex: 60 / F ADM Date: 03/28/21 Loc: SOXD Room: Type: [facility] Attending Dr: Sona Hurst MD Ordering Provider: [...] Mckayla Rai M.D.03/28/2021 1:26 PM Dictation Location: [place] [id number] Transcribed By: [facility] 03/28/21 1326 Dictated By: Mckayla Rai MD 03/28/21 1321 Signed By: 03/28/21 1326 [facility] BIOAVAILABLE TESTOSTERONE FE MALE, CHILDon 11-29-2019 Albumin [Mass/Vol] 4.3 g/dL Normal 3.6-5.1 [facility] Comment on above: Result Comment: Age and [...] be regarded as investigational or for research. [facility] is qualified to perform high complexity testing under the Clinical Laboratory Improvement Amendments (CLIA). Test performed at [facility] [address] [place] [address], [address], [address] [place] [address] Sorting Supervisor: Adi Barksdale M.D. CLIA Number [id number] CAP Accreditation Number [id number] ------- [facility] [address] [place] [address] CLIA No. [id number] CAP Accreditation No. [id number] Sorting Supervisor: Isiah Burr M.D. Performed By: #### 1 000, 4500, 4510, 4520, 84838, 5000, 35177, 05836 #### [facility] Unless Otherwise Noted [address] [place] [address] / COLA #4724/CLIA # [id number] SEX HORM BINDING GLOBULIN 56.3 nmol/L Normal 17.3-125.0 [facility] Comment on above: Performed By: #### 1 000, 4500, 4510, 4520, 76894, 5000, 52090, 58107 #### [facility] Unless Otherwise Noted [address] [place] [address] / COLA #4724/CLIA # [id number] TESTOSTERONE BIO FEMALE 2.9 ng/dL Normal 1.5-9.4 [facility] Comment on above: Performed By: #### 1 000, 4500, 4510, 4520, 92446, 5000, 33747, 54184 #### [facility] Unless Otherwise Noted [address] [address] / COLA #4724/CLIA # [id number] TESTOSTERONE FREE FEMALE 1.3 pg/mL Normal 0.6-3.8 [facility] Comment on above: Performed By: #### 1 000, 4500, 4510, 4520, 96773, 5000, 12852, 55199 #### [facility] Unless Otherwise Noted [address], [place] [address] / COLA #4724/CLIA # [id number] TESTOSTERONE, ULTRASENSITIVE 10 ng/dL Normal 9-55 [facility] Comment on above: Performed By: #### 1 000, 4500, 4510, 4520, 69756, 4834, 66755, 14269 #### [facility] Unless Otherwise Noted [address] [place] [address] / COLA #4724/CLIA # [id number] ADRENOCORTICOTROPIC HORMon 0 - ADRENOCORTICOTROPIC HORM 18.1 PG/ML Normal 7.2-63.3 [facility] Comment on above: Result Comment: Reference range established for normal adult patients, morning blood draw (7-10 AM). Certain synthetic ACTH fragments may interfere with this assay. Test performed at [facility] [address] [place] [address] CLIA Number [id number] CAP Accreditation Number [id number] ------- Performed By: #### 1 000, 4500, 4510, 4520, 59897, 5000, 52562, 21139 #### [facility] Unless Otherwise Noted [address] [place] [address] / COLA #4724/CLIA # [id number] IGF-1on 11-27-2019 IGF-1 151 NG/ML Normal 43-187 [facility] Comment on above: Result Comment: Test performed at [facility] [address] [place] [address] CLIA Number [id number] [facility] Accreditation Number [id number] ------- Performed By: #### 1 000, 4500, 4510, 4520, 94238, 5000, 46212, 69423 #### [facility] Unless Otherwise Noted [address] [place] [address] / COLA #4724/CLIA # [id number] CORTISOL Del[place] 11-26-2019 CORTISOL AM 8.6 UG/DL Normal 4.5-22.7 [facility] Comment on above: Performed By: #### 1 000, 4500, 4510, 4520, 47663, 5000, 84864, 61512 #### [facility] Unless Otherwise Noted [address] [address] / COLA #4724/CLIA # [id number] FSHon 11-26-2019 FSH 26.30 mlU/mL Normal [facility] Comment on above: Result Comment: REFE RENCE RANGES FOR FEMALES: OVULATING FEMALE: FOLLICULAR PHASE 1.98-11.6 PEAK 5.14-23.4 LUTEAL PHASE 1.38-9.58 POSTMENOPAUSAL FEMALE 21.5-131 Performed By: #### 4 530, 4540, 4550, 4577 #### [facility] Unless Otherwise Noted [address] [address] / COLA #4724/CLIA # [id number] LHon 11-26-2019 LH 23.00 mIU/ml Normal [facility] Comment on above: Result Comment: REFE RENCE RANGES FOR FEMALE: OVULATING FEMALE: FOLLICULAR PHASE 2.58-12.1 PEAK 27.3-96.9 LUTEAL PHASE 0.83-15.5 POSTMENOPAUSAL FEMALE 13.1-86.5 Performed By: #### 4 530, 4540, 4550, 5861 #### [facility] Unless Otherwise Noted [address] [address] / COLA #4724/CLIA # [id number] PROLACTINon 11-26-2019 PROLACTIN 17.3 ng/ml Normal 2.1-47.6 [facility] Comment on above: Result Comment: IVELISSE ENOPAUSAL FEMALE 2.1 - 47.6 POSTMENOPAUSAL FEMALE 0.0 - 41.4 Performed By: #### 1 000, 4500, 4510, 4520, 19264, 5000, 11550, 03446 #### [facility] Unless Otherwise Noted [address] [address] / COLA #4724/CLIA # [id number] CBC W/AUTO DIFFon 11-25-2019 ABS BASOPHILS 0.0 X10E9/L Normal 0-0.9 [facility] Comment on above: Result Comment: Perf ormed at [facility] [address] [facility] [address] Performed By: #### 1 000, 4500, 4510, 4520, 50683, 5000, 57329, 20157 #### [facility] Unless Otherwise Noted [address] [address] / COLA #4724/CLIA # [id number] ABS NEUTROPHILS 2.6 X10E9/L Normal 1.5-6.6 [facility] Comment on above: Performed By: #### 1 000, 4500, 4510, 4520, 54094, 5000, 77713, 20805 #### [facility] Unless Otherwise Noted [address] [address] / COLA #4724/CLIA # [id number] Basophils/100 WBC (Bld) 0.6 % Normal [facility] Comment on above: Performed By: #### 1 000, 4500, 4510, 4520, 97642, 5000, 92505, 46756 #### [facility] Unless Otherwise Noted [address] [address] / COLA #4724/CLIA # [id number] Eosinophils (Bld) [#/Vol] 0.2 10*3/uL Normal 0.0-0.4 [facility] Comment on above: Performed By: #### 1 000, 4500, 4510, 4520, 37315, 5000, 44503, 76257 #### [facility] Unless Otherwise Noted [address] / COLA #4724/CLIA # [id number] Eosinophils/100 WBC (Bld) 3.1 % Normal [facility] Comment on above: Performed By: #### 1 000, 4500, 4510, 4520, 53158, 5000, 01776, 43064 #### [facility] Unless Otherwise Noted [address] [address] / COLA #4724/CLIA # [id number] Erythrocyte distribution width (RBC) [Ratio] 13.3 % Normal 11.5-14.7 [facility] Comment on above: Performed By: #### 1 000, 4500, 4510, 4520, 23691, 5000, 80636, 05971 #### [facility] Unless Otherwise Noted [address] [address] / COLA #4724/CLIA # [id number] Hematocrit (Bld) [Volume fraction] 39.4 % Normal 35-47 [facility] Comment on above: Performed By: #### 1 000, 4500, 4510, 4520, 83013, 5000, 08136, 48361 #### [facility] Unless Otherwise Noted [address] [place] [address] / COLA #4724/CLIA # [id number] Hemoglobin (Bld) [Mass/Vol] 13.3 g/dL Normal 11.7-16.0 [facility] Comment on above: Performed By: #### 1 000, 4500, 4510, 4520, 70200, 5000, 68998, 07334 #### [facility] Unless Otherwise Noted [address] [address] / COLA #4724/CLIA # [id number] Lymphocytes (Bld) [#/Vol] 1.8 10*3/uL Normal 1.0-3.5 [facility] Comment on above: Performed By: #### 1 000, 4500, 4510, 4520, 74242, 5000, 10181, 65613 #### [facility] Unless Otherwise Noted [address] [address] / COLA #4724/CLIA # [id number] Lymphocytes/100 WBC (Bld) 35.0 % Normal [facility] Comment on above: Performed By: #### 1 000, 4500, 4510, 4520, 06590, 5000, 40331, 26021 #### [facility] Unless Otherwise Noted [address] [address] / COLA #4724/CLIA # [id number] MCH (RBC) [Entitic mass] 31.2 pg Normal 26-33.5 [facility] Comment on above: Performed By: #### 1 000, 4500, 4510, 4520, 82396, 5000, 01569, 93435 #### [facility] Unless Otherwise Noted [address] [place] [address] / COLA #4724/CLIA # [id number] MCHC (RBC) [Mass/Vol] 33.7 g/dL Normal 32-36 [facility] Comment on above: Performed By: #### 1 000, 4500, 4510, 4520, 07463, 5000, 85834, 76494 #### [facility] Unless Otherwise Noted [address] [address] / COLA #4724/CLIA # [id number] MCV (RBC) [Entitic vol] 93 fL Normal 81-100 [facility] Comment on above: Performed By: #### 1 000, 4500, 4510, 4520, 60157, 5000, 08627, 14320 #### [facility] Unless Otherwise Noted [address] [address] / COLA #4724/CLIA # [id number] Monocytes (Bld) [#/Vol] 0.5 10*3/uL Normal 0-0.9 [facility] Comment on above: Performed By: #### 1 000, 4500, 4510, 4520, 99177, 5000, 30671, 06619 #### [facility] Unless Otherwise Noted [address] [address] / COLA #4724/CLIA # [id number] Monocytes/100 WBC (Bld) 10.0 % Normal [facility] Comment on above: Performed By: #### 1 000, 4500, 4510, 4520, 26214, 5000, 30355, 19559 #### [facility] Unless Otherwise Noted [address] [place] [address] / COLA #4724/CLIA # [id number] Neutrophils/100 WBC (Bld) 51.3 % Normal [facility] Comment on above: Performed By: #### 1 000, 4500, 4510, 4520, 53193, 5000, 45856, 30040 #### [facility] Unless Otherwise Noted [address] [place] [address] / COLA #4724/CLIA # [id number] Platelet mean volume (Bld) [Entitic vol] 8.8 fL Normal 7-12 [facility] Comment on above: Performed By: #### 1 000, 4500, 4510, 4520, 18316, 5000, 60573, 54345 #### [facility] Unless Otherwise Noted [address] [address] / COLA #4724/CLIA # [id number] Platelets (Bld) [#/Vol] 225 10*3/uL Normal 150-450 [facility] Comment on above: Performed By: #### 1 000, 4500, 4510, 4520, 66472, 5000, 83061, 60926 #### [facility] Unless Otherwise Noted [address] [address] / COLA #4724/CLIA # [id number] RBC (Bld) [#/Vol] 4.25 X10E12/L Normal 3.80-5.20 [facility] Comment on above: Performed By: #### 1 000, 4500, 4510, 4520, 28796, 5000, 98822, 26491 #### [facility] Unless Otherwise Noted [address] [place] [address] / COLA #4724/CLIA # [id number] WBC (Bld) [#/Vol] 5.1 10*3/uL Normal 4.8-10.8 [facility] Comment on above: Performed By: #### 1 000, 4500, 4510, 4520, 35220, 5000, 46650, 23284 #### [facility] Unless Otherwise Noted [address] [place] [address] / COLA #4724/CLIA # [id number] [facility] 11-25-2019 Albumin [Mass/Vol] 4.2 g/dL Normal 3.5-5.0 [facility] Comment on above: Performed By: #### 1 000, 4500, 4510, 4520, 04003, 5000, 33671, 42702 #### [facility] Unless Otherwise Noted [address] [place] [address] / COLA #4724/CLIA # [id number] ALP [Catalytic activity/Vol] 103.0 U/L Normal 38.0-126.0 [facility] Comment on above: Performed By: #### 1 000, 4500, 4510, 4520, 52792, 5000, 39157, 66925 #### [facility] Unless Otherwise Noted [address] [place] [address] / COLA #4724/CLIA # [id number] ALT [Catalytic activity/Vol] 62.0 U/L Normal 13.0-69.0 [facility] Comment on above: Performed By: #### 1 000, 4500, 4510, 4520, 33679, 5000, 96194, 56678 #### [facility] Unless Otherwise Noted [address], [place] [address] / COLA #4724/CLIA # [id number] Anion gap [Moles/Vol] 4.0 mmol/L Low 10.0-15.0 [facility] Comment on above: Performed By: #### 1 000, 4500, 4510, 4520, 59585, 5000, 71802, 84063 #### [facility] Unless Otherwise Noted [address], [place] [address] / COLA #4724/CLIA # [id number] AST [Catalytic activity/Vol] 30.0 U/L Normal 15.0-46.0 [facility] Comment on above: Performed By: #### 1 000, 4500, 4510, 4520, 51186, 5000, 40573, 44067 #### [facility] Unless Otherwise Noted [address] [place] [address] / COLA #4724/CLIA # [id number] Bilirubin Ql (U) 0.50 mg/dL Normal 0.20-1.30 [facility] Comment on above: Performed By: #### 1 000, 4500, 4510, 4520, 24793, 5000, 31920, 68223 #### [facility] Unless Otherwise Noted [address] [address] / COLA #4724/CLIA # [id number] BUN/Cre Ratio 32.9 Ratio High 7.0-27.0 [facility] Comment on above: Performed By: #### 1 000, 4500, 4510, 4520, 77147, 5000, 38122, 10578 #### [facility] Unless Otherwise Noted [address] [address] / COLA #4724/CLIA # [id number] Calcium [Mass/Vol] 9.5 mg/dL Normal 8.4-10.2 Endocr [facility] Comment on above: Performed By: #### 1 000, 4500, 4510, 4520, 77197, 5000, 73566, 93317 #### [facility] Unless Otherwise Noted [address] [place] [address] / COLA #4724/CLIA # [id number] Chloride [Moles/Vol] 102.0 mmol/L Normal 98.0-107.0 [facility] Comment on above: Performed By: #### 1 000, 4500, 4510, 4520, 08286, 5000, 77661, 28053 #### [facility] Unless Otherwise Noted [address] [address] / COLA #4724/CLIA # [id number] CO2 [Moles/Vol] 31.0 mmol/L High 22.0-30.0 [facility] Comment on above: Performed By: #### 1 000, 4500, 4510, 4520, 91378, 5000, 90724, 15668 #### [facility] Unless Otherwise Noted [address] [place] [address] / COLA #4724/CLIA # [id number] Creatinine [Mass/Vol] 0.7 mg/dL Normal 0.5-1.0 [facility] Comment on above: Performed By: #### 1 000, 4500, 4510, 4520, 75468, 5000, 53214, 96729 #### [facility] Unless Otherwise Noted [address] [place] [address] / COLA #4724/CLIA # [id number] GFR/1.73 sq M predicted among blacks MDRD (S/P/Bld) [Vol rate/Area] 110.1 ml/m1.73 Normal [facility] Comment on above: Performed By: #### 1 000, 4500, 4510, 4520, 77203, 5000, 88919, 91446 #### [facility] Unless Otherwise Noted [address] [place] [address] / COLA #4724/CLIA # [id number] GFR/1.73 sq M predicted among non-blacks MDRD (S/P/Bld) [Vol rate/Area] 91.0 ml/m1.73 Normal [facility] Comment on above: Performed By: #### 1 000, 4500, 4510, 4520, 31999, 5000, 61431, 86340 #### [facility] Unless Otherwise Noted [address] [place] [address] / COLA #4724/CLIA # [id number] GFR/1.73 sq M predicted among non-blacks MDRD (S/P/Bld) [Vol rate/Area] 96.2 ml/m1.73 Normal [facility] Comment on above: Performed By: #### 1 000, 4500, 4510, 4520, 66769, 5000, 50309, 70718 #### [facility] Unless Otherwise Noted [address] [place] [address] / COLA #4724/CLIA # [id number] Glucose [Mass/Vol] 109.0 mg/dL High 74.0-106.0 Endoc [facility] Comment on above: Performed By: #### 1 000, 4500, 4510, 4520, 92360, 5000, 88826, 25196 #### [facility] Unless Otherwise Noted [address] [place] [address] / COLA #4724/CLIA # [id number] Potassium [Moles/Vol] 4.3 mmol/L Normal 3.5-5.1 [facility] Comment on above: Performed By: #### 1 000, 4500, 4510, 4520, 14157, 5000, 88084, 75625 #### [facility] Unless Otherwise Noted [address] [place] [address] / COLA #4724/CLIA # [id number] Protein [Mass/Vol] 6.8 g/dL Normal 6.3-8.2 [facility] Comment on above: Performed By: #### 1 000, 4500, 4510, 4520, 50692, 5000, 72225, 47777 #### [facility]ocrine [facility] Unless Otherwise Noted [address] [place] [address] / COLA #4724/CLIA # [id number] Sodium [Moles/Vol] 137.0 mmol/L Normal 137.0-145.0 [facility] Comment on above: Performed By: #### 1 000, 4500, 4510, 4520, 74645, 5000, 35235, 60991 #### [facility] Unless Otherwise Noted [address] [address] / COLA #4724/CLIA # [id number] Urea nitrogen [Mass/Vol] 23.0 mg/dL High 7.0-17.0 [facility] Comment on above: Performed By: #### 1 000, 4500, 4510, 4520, 13721, 5000, 20597, 75092 #### [facility] Unless Otherwise Noted [address] [address] / COLA #4724/CLIA # [id number] FT3on 11-25-2019 FT3 4.39 pg/mL Normal 2.71-6.16 [facility] Comment on above: Performed By: #### 1 000, 4500, 4510, 4520, 17955, 5000, 52595, 44597 #### [facility] Unless Otherwise Noted [address] [address] / COLA #4724/CLIA # [id number] FT4on 11-25-2019 Free T4 [Mass/Vol] 0.95 ng/dL Normal 0.64-1.79 [facility]ocr [facility] Comment on above: Performed By: #### 1 000, 4500, 4510, 4520, 70797, 5000, 00587, 48635 #### [facility] Unless Otherwise Noted [address] [address] / COLA #4724/CLIA # [id number] TSHon 11-25-2019 TSH Qn 0.35 uIU/ml Low 0.47-4.68 [facility] Comment on above: Performed By: #### 1 000, 4500, 4510, 4520, 95492, 5000, 02410, 45232 #### [facility] Unless Otherwise Noted [address], [place] [address] / MERLY #4724/CLIA # [id number] Vital Signs Date Time Vital Sign Value Performing Clinician Facility 09-29-2023 10:33-0500 Body height 167.6 cm South Saba DO Work Phone: [facility] 09-29-2023 10:33-0500 Body weight 62.14 kg South Jayant DO Work Phone: [facility] 09-12-2023 10:00-0400 Body height 167.64 cm Roland Ball Other [facility] Other 09-12-2023 10:00-0400 Body mass index (BMI) [Ratio] 23.05 kg/m2 Roland Ball Other [facility] Other 09-12-2023 10:00-0400 Body weight 64.77 kg Roland Ball Other [facility] Other 09-12-2023 10:00-0400 Diastolic blood pressure 75 mm[Hg] Roland Ball Other [facility] Other 09-12-2023 10:00-0400 Respiratory rate 12 /min Roland Ball Other [facility] Other 09-12-2023 10:00-0400 Systolic blood pressure 131 mm[Hg] Roland Ball Other [facility] Other 08-29-2023 10:55-0400 Body height 167.6 cm Elder Galan APRN.CUSTOMER SERVICES MANAGER Work Phone: [facility] 08-29-2023 10:55-0400 Body temperature 98.01 [degF] Elder Angelia MANAGER FLEET.CUSTOMER SERVICES MANAGER Work Phone: [facility] 08-29-2023 10:55-0400 Body weight 66.68 kg Elder Angelia MANAGER FLEET.CUSTOMER SERVICES MANAGER Work Phone: [facility] 08-29-2023 10:55-0400 Diastolic blood pressure 78 mm[Hg] Elder Angelia MANAGER FLEET.CUSTOMER SERVICES MANAGER Work Phone: [facility] 08-29-2023 10:55-0400 Heart rate 82 /min Elder Angelia MANAGER FLEET.CUSTOMER SERVICES MANAGER Work Phone: [facility] 08-29-2023 10:55-0400 SaO2% (BldA) [Mass fraction] 99 % Elder Angelia MANAGER FLEET.CUSTOMER SERVICES MANAGER Work Phone: [facility] 08-29-2023 10:55-0400 Systolic blood pressure 163 mm[Hg] Elder Angelia MANAGER FLEET.CUSTOMER SERVICES MANAGER Work Phone: [facility] 08-29-2023 10:03-0400 Body temperature 98.01 [degF] Heidi Hatfield MD Work Phone: [facility] 08-29-2023 10:03-0400 Body weight 66.68 kg Heidi Hatfield MD Work Phone: [facility] 08-29-2023 10:03-0400 Diastolic blood pressure 77 mm[Hg] Heidi Hatfield MD Work Phone: [facility] 08-29-2023 10:03-0400 Heart rate 82 /min Heidi Hatfield MD Work Phone: [facility] 08-29-2023 10:03-0400 Respiratory rate 16 /min Heidi Hatfield MD Work Phone: [facility] 08-29-2023 10:03-0400 SaO2% (BldA) [Mass fraction] 99 % Heidi Hatfield MD Work Phone: [facility] 08-29-2023 10:03-0400 Systolic blood pressure 157 mm[Hg] Heidi Hatfield MD Work Phone: [facility] 07-04-2023 09:18-0400 Body height 167.6 cm South Jayant DO Work Phone: [facility] 07-04-2023 09:18-0400 Body temperature 97.59 [degF] South Jayant DO Work Phone: [facility] 07-04-2023 09:18-0400 Body weight 66.5 kg South Jayant DO Work Phone: [facility] 07-04-2023 09:18-0400 Diastolic blood pressure 68 mm[Hg] South Jayant DO Work Phone: [facility] 07-04-2023 09:18-0400 Heart rate 73 /min South Jayant DO Work Phone: [facility] 07-04-2023 09:18-0400 SaO2% (BldA) [Mass fraction] 100 % South Jayant DO Work Phone: [facility] 07-04-2023 09:18-0400 Systolic blood pressure 139 mm[Hg] South Jayant DO Work Phone: [facility] 06-27-2023 10:30-0400 Body temperature 97.39 [degF] Heidi Hatfield MD Work Phone: [facility] 06-27-2023 10:30-0400 Body weight 69.4 kg Heidi Hatfield MD Work Phone: [facility] 06-27-2023 10:30-0400 Diastolic blood pressure 76 mm[Hg] Heidi Hatfield MD Work Phone: [facility] 06-27-2023 10:30-0400 Heart rate 70 /min Heidi Hatfield MD Work Phone: [facility] 06-27-2023 10:30-0400 Respiratory rate 16 /min Heidi Hatfield MD Work Phone: [facility] 06-27-2023 10:30-0400 SaO2% (BldA) [Mass fraction] 97 % Heidi Hatfield MD Work Phone: [facility] 06-27-2023 10:30-0400 Systolic blood pressure 141 mm[Hg] Heidi Hatfield MD Work Phone: [facility] 05-23-2023 09:45-0400 Body height 167.64 cm Roland Ball Other [facility] Other 05-23-2023 09:45-0400 Body mass index (BMI) [Ratio] 24.79 kg/m2 Roland Ball Other [facility] Other 05-23-2023 09:45-0400 Body weight 69.67 kg Roland Ball Other [facility] Other 05-23-2023 09:45-0400 Diastolic blood pressure 78 mm[Hg] Roland Ball Other [facility] Other 05-23-2023 09:45-0400 Respiratory rate 12 /min Roland Ball Other [facility] Other 05-23-2023 09:45-0400 Systolic blood pressure 158 mm[Hg] Roland Ball Other [facility] Other 04-23-2023 13:30-0400 Body height 167.64 cm Roland Ball Other [facility] Other 04-23-2023 13:30-0400 Body mass index (BMI) [Ratio] 24.34 kg/m2 Roland Ball Other [facility] Other 04-23-2023 13:30-0400 Body weight 68.4 kg Roland Ball Other [facility] Other 04-23-2023 13:30-0400 Diastolic blood pressure 74 mm[Hg] Roland Ball Other [facility] Other 04-23-2023 13:30-0400 Respiratory rate 12 /min Roland Ball Other [facility] Other 04-23-2023 13:30-0400 Systolic blood pressure 131 mm[Hg] Roland Ball Other [facility] Other 03-05-2023 09:30-0400 Body height 167.6 cm Juan Manuel Pack MANAGER FLEET.CUSTOMER SERVICES MANAGER Work Phone: [facility] 03-05-2023 09:30-0400 Body weight 70.22 kg Juan Manuel Pack MANAGER FLEET.CUSTOMER SERVICES MANAGER Work Phone: [facility] 03-05-2023 09:30-0400 Diastolic blood pressure 90 mm[Hg] Juan Manuel Pack MANAGER FLEET.CUSTOMER SERVICES MANAGER Work Phone: [facility] 03-05-2023 09:30-0400 Heart rate 85 /min Juan Manuel Pack MANAGER FLEET.CUSTOMER SERVICES MANAGER Work Phone: [facility] 03-05-2023 09:30-0400 Systolic blood pressure 152 mm[Hg] Juan Manuel Pack MANAGER FLEET.CUSTOMER SERVICES MANAGER Work Phone: [facility] 01-24-2023 08:45-0500 Body height 167.64 cm Roland Ball Other [facility] Other 01-24-2023 08:45-0500 Body mass index (BMI) [Ratio] 24.05 kg/m2 Roland Ball Other [facility] Other 01-24-2023 08:45-0500 Body temperature 96.7 [degF] Roland Ball Other [facility] Other 01-24-2023 08:45-0500 Body weight 67.59 kg Roland Ball Other [facility] Other 01-24-2023 08:45-0500 Diastolic blood pressure 93 mm[Hg] Roland Ball Other [facility] Other 01-24-2023 08:45-0500 Systolic blood pressure 165 mm[Hg] Roland Ball Other [facility] Other 01-20-2023 13:35-0500 Body height 167.64 cm Olya Sanjuanita Other [facility] Other 01-20-2023 13:35-0500 Body mass index (BMI) [Ratio] 24.53 kg/m2 Olya Sanjuanita Other [facility] Other 01-20-2023 13:35-0500 Body temperature 97.3 [degF] Loya Sanjuanita Other [facility] Other 01-20-2023 13:35-0500 Body weight 68.95 kg Olya Gann Other [facility] Other 01-20-2023 13:35-0500 Respiratory rate 18 /min Olya Gann Other [facility] Other 01-20-2023 13:35-0500 SaO2% (BldA) [Mass fraction] 95 % Olya Gann Other [facility] Other 01-03-2023 15:27-0500 Body height 167.6 cm Henry Ramos MD Work Phone: [facility] 01-03-2023 15:27-0500 Body temperature 97.81 [degF] Henry Ramos MD Work Phone: [facility] 01-03-2023 15:27-0500 Body weight 71.17 kg Henry Ramos MD Work Phone: [facility] 01-03-2023 15:27-0500 Diastolic blood pressure 87 mm[Hg] Henry Ramos MD Work Phone: [facility] 01-03-2023 15:27-0500 Heart rate 95 /min Henry Ramos MD Work Phone: [facility] 01-03-2023 15:27-0500 SaO2% (BldA) [Mass fraction] 99 % Henry Ramos MD Work Phone: [facility] 01-03-2023 15:27-0500 Systolic blood pressure 141 mm[Hg] Henry Ramos MD Work Phone: [facility] 09-26-2022 12:30-0500 Diastolic blood pressure 89 mm[Hg] Leila Alamo MD Work Phone: [facility] 09-26-2022 12:30-0500 Heart rate 79 /min Leila Alamo MD Work Phone: [facility] 09-26-2022 12:30-0500 Respiratory rate 18 /min Leila Alamo MD Work Phone: [facility] 09-26-2022 12:30-0500 SaO2% (BldA) [Mass fraction] 98 % Leila Alamo MD Work Phone: [facility] 09-26-2022 12:30-0500 Systolic blood pressure 140 mm[Hg] Leila Alamo MD Work Phone: [facility] 09-26-2022 11:25-0500 Body height 167.6 cm Leila Alamo MD Work Phone: [facility] 09-26-2022 11:25-0500 Body temperature 98.2 [degF] Leila Alamo MD Work Phone: [facility] 09-26-2022 11:25-0500 Body weight 68.04 kg Leila Alamo MD Work Phone: [facility] 08-07-2022 15:28-0400 Body weight 68.95 kg Henry Ramos MD Work Phone: [facility] 08-07-2022 15:28-0400 Diastolic blood pressure 91 mm[Hg] Henry Ramos MD Work Phone: [facility] 08-07-2022 15:28-0400 SaO2% (BldA) [Mass fraction] 98 % Henry Ramos MD Work Phone: [facility] 08-07-2022 15:28-0400 Systolic blood pressure 132 mm[Hg] Henry Ramos MD Work Phone: [facility] 03-13-2022 14:38-0400 Body height 169.5 cm Henry Ramos MD Work Phone: [facility] 03-13-2022 14:38-0400 Body temperature 96.8 [degF] Henry Ramos MD Work Phone: [facility] 03-13-2022 14:38-0400 Body weight 66.32 kg Henry Ramos MD Work Phone: [facility] 03-13-2022 14:38-0400 Diastolic blood pressure 96 mm[Hg] Henry Ramos MD Work Phone: [facility] 03-13-2022 14:38-0400 Heart rate 85 /min Henry Ramos MD Work Phone: [facility] 03-13-2022 14:38-0400 Respiratory rate 16 /min Henry Ramos MD Work Phone: [facility] 03-13-2022 14:38-0400 SaO2% (BldA) [Mass fraction] 98 % Henry Ramos MD Work Phone: [facility] 03-13-2022 14:38-0400 Systolic blood pressure 151 mm[Hg] Henry Ramos MD Work Phone: [facility] 07-07-2021 14:50-0400 Diastolic blood pressure 101 mm[Hg] Mayra Michel MD Work Phone: [facility] Work Phone: 07-07-2021 14:50-0400 Heart rate 70 /min Mayra Michel MD Work Phone: [facility] Work Phone: 07-07-2021 14:50-0400 Respiratory rate 13 /min Mayra Michel MD Work Phone: [facility] Work Phone: 07-07-2021 14:50-0400 SaO2% (BldA) [Mass fraction] 99 % Mayra Michel MD Work Phone: [facility] Work Phone: 07-07-2021 14:50-0400 Systolic blood pressure 133 mm[Hg] Mayra Michel MD Work Phone: [facility] Work Phone: 07-07-2021 13:25-0400 Body height 167.6 cm Mayra Michel MD Work Phone: [facility] Work Phone: 07-07-2021 13:25-0400 Body mass index (BMI) [Ratio] 24.19 kg/m2 Mayra Michel MD Work Phone: [facility] Work Phone: 07-07-2021 13:25-0400 Body temperature 98.6 [degF] Mayra Michel MD Work Phone: [facility] Work Phone: 07-07-2021 13:25-0400 Body weight 67.99 kg Mayra Michel MD Work Phone: [facility] Work Phone: 11-25-2019 16:19-0500 Body weight 70.4 Kg [facility] Comment on above: Performed By: #### 1000, 4500, 4510, 452 0, 91467, 5000, 11474, [id number] #### [facility] [employer] Unless Otherwise Noted [address] [place] [address] / [facility] #[id number]/LAKIA # [id number] Encounters Encounter Date Encounter Type Care Provider Facility Start: 03-05-2024 End: 03-05-2024 ambulatory MARY LAU Not Available Start: 02-13-2024 End: 02-14-2024 ambulatory MARY LAU Not Available Start: 12-17-2023 End: 12-17-2023 ambulatory Roland Serrano Other [facility] Other Start: 12-17-2023 Telephone encounter [facility] Start: 10-23-2023 End: 10-23-2023 ambulatory Roland Serrano Other [facility] Other Start: 10-23-2023 Telephone encounter [facility] Start: 10-02-2023 End: 10-02-2023 ambulatory LEIGH MORENO Not Available Start: 09-29-2023 End: 09-30-2023 ambulatory ROLAND SERRANO Facility:[facility] Start: 09-29-2023 End: 09-29-2023 Patient encounter procedure South Saba DO Work Phone: Colorectal Surgery Comment on above: Radiation proctitis (Primary Dx); Endometrial cancer (HCC) Start: 09-21-2023 End: 09-21-2023 ambulatory Roland Ball Other [facility] Other Start: 09-21-2023 Telephone encounter Roland Ball [facility] Start: 09-18-2023 End: 09-18-2023 ambulatory Roland Ball Other [facility] Other Start: 09-18-2023 Telephone encounter Roland Ball [facility] Start: 09-17-2023 End: 09-17-2023 ambulatory Roland Ball Other [facility] Other Start: 09-17-2023 Telephone encounter Roland Ball [facility] Start: 09-15-2023 End: 09-15-2023 ambulatory Roland Ball Other [facility] Other Start: 09-15-2023 Telephone encounter Roland Ball [facility] Start: 09-14-2023 End: 09-14-2023 ambulatory Roland Ball Other [facility] Other Start: 09-14-2023 Telephone encounter Roland Ball [facility] Start: 09-12-2023 End: 09-12-2023 ambulatory Roland Ball Other [facility] Other Start: 09-12-2023 Encounter for genera l adult medical examination without abnormal findings Roland Ball [facility] Start: 09-12-2023 Periodic preventive med est patient 40-64yrs Roland Ball [facility] Start: 09-10-2023 End: 09-10-2023 ambulatory Roland Ball Other [facility] Other Start: 09-10-2023 Telephone encounter Roland Ball [facility] Start: 09-03-2023 End: 09-03-2023 ambulatory Roland Ball Other [facility] Other Start: 09-03-2023 Telephone encounter Roland Ball [facility] Start: 09-02-2023 Telephone encounter Roland Serrano [facility] Start: 09-02-2023 End: 09-02-2023 ambulatory ROLAND SERRANO [facility] Other Start: 09-01-2023 End: 09-01-2023 ambulatory Roland Serrano Other [facility] Other Start: 09-01-2023 Telephone encounter Roland Serrano [facility] Start: 08-29-2023 End: 08-29-2023 ambulatory ROLAND SERRANO Facility:[facility] Start: 08-29-2023 End: 08-30-2023 ambulatory ROLAND SERRANO Facility:[facility] Start: 08-29-2023 Encounter for other preprocedural examination ELDER GALAN [facility] Start: 08-29-2023 End: 08-29-2023 ambulatory ROLAND SERRANO Facility:[facility] Start: 08-29-2023 End: 08-29-2023 Preprocedural examination done Elder Galan APRN.CUSTOMER SERVICES MANAGER Work Phone: [facility] Work Phone: Start: 08-29-2023 End: 08-29-2023 ambulatory Pulm Fct Lab Main 8 Pulmonary Medicine Comment on above: Spirometry Start: 08-29-2023 End: 08-29-2023 Patient encounter procedure Pulm Fct Lab Main 8 [facility] Comment on above: Dyspnea and respirat ory abnormalities (Primary Dx); Calcified nodule; Iron deficiency anemia due to chronic blood loss Pre-op evaluation (P rimary Dx) Start: 08-29-2023 End: 08-29-2023 Subsequent hospital visit by physician Xr Chest Main A21 Radiology Comment on above: Dyspnea, unspecified type [R06.00] Start: 08-26-2023 Orders Only Heidi Hatfield MD Work Phone: [facility] [place] Comment on above: ILD (interstitial lamont ng disease) (HCC) (Primary Dx) Start: 08-22-2023 ambulatory South rincon DO Work Phone: [facility] Start: 08-22-2023 Patient encounter procedure South Saba DO Work Phone: Colorectal Surgery Comment on above: Pre op appointment Start: 08-22-2023 End: 08-22-2023 Subsequent hospital visit by physician Frannie [facility] Work Phone: [facility] Radiology CT Scan Comment on above: Interstitial pulmona ry disease (HCC) [J84.9] Start: 08-14-2023 ambulatory ROLAND SERRANO Facilit y:[facility] Start: 08-04-2023 End: 08-04-2023 ambulatory Roland Serrano Other [facility] Other Start: 08-04-2023 Office outpatient vi sit 15 minutes Roland Serrano [facility] Start: 07-22-2023 ambulatory South rincon DO Work Phone: Colorectal Surgery Start: 07-22-2023 Telephone encounter Se Jayant DO Work Phone: Colorectal Surgery Comment on above: Patient Update Start: 07-08-2023 End: 07-08-2023 ambulatory Roland Serrano Other [facility] Other Start: 07-08-2023 Telephone encounter Roland Serrano [facility] Start: 07-04-2023 End: 07-05-2023 ambulatory Se Jayant DO Work Phone: Colorectal Surgery Start: 07-04-2023 End: 07-04-2023 Patient encounter procedure Se Valente DO Work Phone: Colorectal Surgery Comment on above: Endometrial cancer ( HCC) (Primary Dx); Radiation proctitis Start: 06-27-2023 End: 06-27-2023 ambulatory Pulm Fct Lab Main 9 Pulmonary Medicine Comment on above: Spirometry Start: 06-27-2023 End: 06-27-2023 Patient encounter procedure Pulm Fct Lab Main 9 [facility] Comment on above: Interstitial pulmona ry disease (HCC) (Primary Dx); Other secondary pulmonary hypertension (HCC) Start: 05-26-2023 ambulatory Henry perales MD Work Phone: Gynecology Oncology Comment on above: Procitis Start: 05-23-2023 End: 05-23-2023 ambulatory Roland Serrano Other [facility] Other Start: 05-23-2023 Office outpatient vi sit 15 minutes Roland Serrano [facility] Start: 05-13-2023 End: 05-13-2023 ambulatory Roland Serrano Other [facility] Other Start: 05-13-2023 Telephone encounter Roland Maggie [facility] Start: 04-23-2023 End: 04-23-2023 ambulatory Roland Serrano Other [facility] Other Start: 04-23-2023 Patient encounter procedure Roland Serrano [facility] Start: 03-25-2023 End: 03-25-2023 ambulatory Roland Serrano Other [facility] Other Start: 03-25-2023 Telephone encounter Roland Serrano [facility] Start: 03-21-2023 Telephone encounter Roland Serrano [facility] Start: 03-21-2023 End: 03-22-[address] ROLAND SERRANO [facility] Other Start: 03-11-2023 End: 03-11-2023 ambulatory Roland Maggie Other [facility] Other Start: 03-11-2023 Telephone encounter Roland Serrano [facility] Start: 03-10-2023 End: 03-11-[address] ROLAND SERRANO [facility] Other Start: 03-10-2023 Telephone encounter Roland Serrano [facility] Start: 03-05-2023 End: 03-05-2023 ambulatory ROLAND Bernie MAGGIE Facility:[facility] Start: 03-05-2023 End: 03-05-2023 Patient encounter procedure Juan Manuel Medina APRN.CUSTOMER SERVICES MANAGER Work Phone: Gastroenterology Comment on above: Rectal bleeding (Vivi nicho Dx) Start: 01-24-2023 End: 01-24-2023 ambulatory Roland Serrano Other [facility] Other Start: 01-24-2023 Office outpatient vi sit 15 minutes Roland Serrano [facility] Start: 01-23-2023 End: 01-23-2023 ambulatory Roland Serrano Other [facility] Other Start: 01-23-2023 Telephone encounter [facility] Start: 01-20-2023 Office outpatient vi sit 15 minutes Olya Gann [facility] Start: 01-20-2023 End: 01-20-[address] ROLAND SERRANO [facility] [employer] Other Start: 01-07-2023 End: 01-07-2023 ambulatory Roland Serrano Other [facility] Other Start: 01-07-2023 Telephone encounter Roland Serrano [facility] Start: 01-03-2023 End: 01-04-2023 ambulatory ROLAND SERRANO Facility:[facility] Start: 01-03-2023 End: 01-04-2023 ambulatory ROLAND SERRANO Facility:[facility] Start: 01-03-2023 End: 01-04-2023 ambulatory Henry Ramos MD Work Phone: Gynecology Oncology Comment on above: Recurrent carcinoma of endometrium (HCC) (Primary Dx); Radiation proctitis; Blood per rectum Start: 01-03-2023 End: 01-04-2023 Patient encounter procedure Henry Ramos MD Work Phone: [facility] Start: 12-25-2022 Telephone encounter Aretha Pena RN Gynecology Oncology Comment on above: Returning Patient's Call Start: 11-19-2022 End: 11-19-2022 ambulatory SALOMON JACOME Facility: Start: 10-04-2022 End: 10-05-[address] ROLAND [...] examination without abnormal findings DR ROLAND SERRANO [facility] Start: 09-04-2022 End: 09-05-[address] ROLAND SERRANO Facility:[facility] Start: 09-04-2022 End: 09-05-2022 Encounter for general adult medical examination without abnormal findings DR ROLAND SERRANO Facility:[facility] Start: 08-29-2022 Adult health examination Roland Serrano Other [facility] Other Start: 08-29-2022 Encounter for genera l adult medical examination without abnormal findings Roland Serrano Other [facility] Other Start: 08-29-2022 Pre-procedure evaluation check Roland Serrano Other [facility] Other Start: 08-07-2022 End: 08-07-2022 ambulatory Henry Ramos MD Work Phone: Gynecology Oncology Comment on above: Recurrent carcinoma of endometrium (HCC) (Primary Dx); Radiation proctitis; Foreshortening of vagina; Endometrial cancer (HCC); Vaginal atrophy; Rectal bleeding Start: 08-07-2022 End: 08-07-2022 Patient encounter procedure Henry Ramos MD Work Phone: [facility] Start: 06-12-2022 End: 06-12-2022 ambulatory SALOMON JACOME Facility:[facility] Start: 03-13-2022 End: 03-13-2022 ambulatory Henry Ramos MD Work Phone: Gynecology Oncology Comment on above: Recurrent carcinoma of endometrium (HCC) (Primary Dx); Vaginal atrophy; Foreshortening of vagina Start: 03-13-2022 End: 03-13-2022 Patient encounter procedure Henry Ramos MD Work Phone: [facility] Start: 11-21-2021 End: 11-22-2021 Emergency department patient visit [facility] Start: 07-07-2021 End: 07-07-2021 Emergency department patient visit BEN LOMOND Bernie [facility] Start: 07-07-2021 End: 07-07-2021 Emergency department patient visit Mayra Michel MD Work Phone: [facility] ED Comment on above: Dizziness (Primary D x); Dehydration Procedures Date Procedure Procedure Detail Performing Clinician Start: 09-29-2023 Follow-up visit Follow Up SOUTH SABA Start: 09-02-2023 Antibody screen JUAN SERRANO Comment on above: Order Comment: Speci men Type: BLOOD SPECIMEN Ordering Facility: [facility] Address: [address] [place] [address] Performed By: #### 5 [id number], [id number] #### [facility] CLIA [id number] [address] [place] [address] Start: 08-29-2023 Antibody screen JUAN SERRANO Comment on above: Order Comment: Speci men Type: BLOOD SPECIMEN Ordering Facility: [facility] Address: [address] [place] [address] Performed By: #### 5 [id number], [id number] #### [facility] CLIA [id number] [facility] [address] [place] Start: 08-29-2023 Spmtry w/vc expirato ry bernie w/wo mxml vol vntj Heidi Hatfield MD Work Phone: Start: 08-29-2023 Radiologic exam ches t 2 views Heidi Hatfield MD Work Phone: Start: 08-22-2023 Ct thorax w/o contra st material Heidi Hatfield MD Work Phone: Start: 06-27-2023 Brncdilat rspse spmt ry pre&post-brncdilat admn Heidi Hatfield MD Work Phone: Start: 09-26-2022 Colonoscopy flx dx w /collj spec when pfrmd Ernesto Ginna MANAGER FLEET.CUSTOMER SERVICES MANAGER Work Phone: Start: 09-26-2022 Colonoscopy Leila Alamo MD Work Phone: Start: 11-02-2021 Antibody screen Comment on above: Order Comment: Trans fuse now? N Result Comment: PERF ORMED BY: [facility] [address] [place] [address] PATHOLOGIST AREA SALES MANAGER CLAIRE ANTHONY M.D. Start: 10-15-2021 Antibody screen Comment on above: Order Comment: Date of Surgery: [id number] # of PRBC units on hold?: 2 Result Comment: PERF ORMED BY: [facility] [address] [facility] [place] [address] PATHOLOGIST AREA SALES MANAGER CLAIRE ANTHONY M.D. Start: 09-20-2021 Adult depression scr eening assessment Henry Ramos MD Work Phone: Start: 08-20-2021 Antibody screen Comment on above: Order Comment: Date of Surgery: [id number] # of PRBC units on hold?: 2 Result Comment: PERF ORMED BY: [facility] [address] [place] [address] PATHOLOGIST AREA SALES MANAGER CLAIRE ANTHONY M.D. Start: 07-07-2021 Urinalysis [...] Detail Author Start: 08-29-2026 [facility] Start: 07-04-2026 DIABETES SCREEN DIABETES SCREEN [facility] Start: 07-04-2026 Diabetes Screening Diabetes Screenin g [facility] Start: 09-26-2023 Colonoscopy COLONOSCOPY [facility] Start: 09-26-2023 COLORECTAL CANCER SCREENING COLORECTAL CANCER SCREENING [facility] Start: 08-26-2023 End: 09-24-2024 SPIROMETRY BASELINE ONLY SPIROMETRY BASELINE ONLY PFT Routine ILD (interstitial lung disease) (HCC) Expected: 08/26/2023, Expires: 09/24/2024 [facility] Work Phone: Comment on above: Expected: 08/26/2023 , Expires: 09/24/2024 Start: 07-22-2023 End: 09-21-2023 CBC W Auto Differential panel - Blood CBC + DIFF Lab Routine Radiation proctitis Expected: 07/22/2023, Expires: 09/21/2023 [facility] Work Phone: Comment on above: Expected: 07/22/2023 , Expires: 09/21/2023 Start: 07-22-2023 End: 09-21-2023 Comprehensive metabolic 2000 panel - Serum or Plasma COMP METABOLIC PANEL Lab Routine Radiation proctitis Expected: 07/22/2023 (Approximate), Expires: 09/21/2023 [facility] Work Phone: Comment on above: Expected: 07/22/2023 (Approximate), Expires: 09/21/2023 Start: 07-18-2023 Covid-19 Vaccine () Covid-19 Vaccine () [facility] Start: 07-18-[address] [facility] Start: 11-17-2022 DEPRESSION ASSESSMENT DEPRESSION ASS ESSMENT [facility] Start: 09-20-2022 Adult depression scr eening assessment DEPRESSION SCREENING [facility] Start: 08-12-2022 DIABETES SCREEN DIABETES SCREEN [facility] Start: 08-07-2022 End: 10-07-2022 CBC W Auto Differential panel - Blood CBC + DIFF Lab Routine Rectal bleeding Expected: 08/07/2022, Expires: 10/07/2022 [facility] Work Phone: Comment on above: Expected: 08/07/2022 , Expires: 10/07/2022 Start: 07-18-[address] [facility] Start: 11-27-2021 COVID-19 VACCINE (3 - Booster for Moderna series) COVID-19 VACCINE (3 - Booster for Moderna series) [facility] Start: 11-17-2021 DEPRESSION ASSESSMENT DEPRESSION ASS [facility] Start: 08-22-2021 COVID-19 VACCINE (3 - Booster for Moderna series) COVID-19 VACCINE (3 - Booster for Moderna series) [facility] Start: 08-22-2021 COVID-19 VACCINE (3 - Moderna series) COVID-19 VACCINE (3 - Moderna series) [facility] Start: 07-18-2021 Influenza vaccination Flu vaccine (# 1) [employer] Work Phone: Start: 2020 RSV Vaccine (1 - 1-d ose 60+ series) RSV Vaccine (1 - 1-dose 60+ series) [facility] Start: 2010 SHINGRIX VACCINE (1 of 2) WESTON GRIX VACCINE (1 of 2) [facility] Start: 2005 COLOGUARD (FIT-DNA) COLOGUARD (FIT-D NA) [facility] Start: 2005 Colonoscopy COLONOSCOPY [facility] Start: 2005 COLORECTAL CANCER SCREENING COLORECTAL CANCER SCREENING [facility] Start: [address] COLONOGRAPHY [facility] Start: 2005 FECAL OCCULT BLOOD FECAL OCCULT BLOO D [facility] Start: 2005 Lipid 1996 panel - S marcela or Plasma Lipid Screening [facility] Start: 2005 LIPID SCREEN LIPID SCREEN [facility] Start: 2005 SIGMOIDOSCOPY SIGMOIDOSCOPY [facility] Start: 2000 Mammography [facility] Start: 1990 HPV TESTING HPV TESTING [facility] Start: 1981 PAP TESTING PAP TESTING [facility] Start: 1979 Urine microalbumin profile [facility] Start: 1978 ANNUAL PCP TEAM TRANSMISSION MECHANIC SHAILA DISEASE VISIT ANNUAL PCP TEAM CHRONIC DISEASE VISIT [facility] Start: 1978 BP CONTROLLED (<130/80) BP CONTROLLE D (<130/80) [facility] Start: 1978 HEPATITIS C SCREENING HEPATITIS C SC REENING [facility] Start: 1978 HIV SCREENING HIV SCREENING [facility] End: 03-05-2024 Colonoscopy COLONOSCOPY (THERAPEUTIC) Endoscopy Routine Rectal bleeding 1 Occurrences starting 03/05/2023 until 03/05/2024 [facility] Work Phone: Comment on above: 1 Occurrences starti ng 03/05/2023 until 03/05/2024 End: 07-26-2024 Ct thorax w/o contrast material CT CHEST WO IVCON Radiology Routine Interstitial pulmonary disease (HCC) 1 Occurrences starting 06/27/2023 until 07/26/2024 [facility] Work Phone: Comment on above: 1 Occurrences starti ng 06/27/2023 until 07/26/2024 End: 07-07-2021 Culture, Urine Culture, Urine Microbiology Routine Once for 1 Occurrences starting 07/07/2021 until 07/07/2021 [employer] Phone: Comment on above: Once for 1 Occurrenc es starting 07/07/2021 until 07/07/2021 Culture, Urine Culture, Urine Microbiology Routine 07/07/2021 2:00 PM EDT [employer] Phone: End: 06-27-2024 Echocardiography ECHO Cardiology Routine Other secondary pulmonary hypertension (HCC) 1 Occurrences starting 06/27/2023 until 06/27/2024 [facility] Work Phone: Comment on above: 1 Occurrences starti ng 06/27/2023 until 06/27/2024 H&P for surgery H&P FOR SURGERY Procedures Routine Radiation proctitis Ordered: 07/22/2023 [facility] Work Phone: Comment on above: Ordered: 07/22/2023 End: 07-26-2024 LUNG DIFFUSION CAPACITY (DLCO) LUNG DIFFUSION CAPACITY (DLCO) PFT Routine Interstitial pulmonary disease (HCC) 1 Occurrences starting 06/27/2023 until 07/26/2024 [facility] Work Phone: Comment on above: 1 Occurrences starti ng 06/27/2023 until 07/26/2024 LUNG DIFFUSION CAPAC ITY (DLCO) LUNG DIFFUSION CAPACITY (DLCO) PFT Routine Interstitial pulmonary disease (HCC) 08/29/2023 9:27 AM EDT [facility] Work Phone: End: 07-26-2024 LUNG VOLUMES LUNG VOLUMES PFT Routine Interstitial pulmonary disease (HCC) 1 Occurrences starting 06/27/2023 until 07/26/2024 [facility] Work Phone: Comment on above: 1 Occurrences starti ng 06/27/2023 until 07/26/2024 End: 07-26-2024 Pulmonary ventilation & perfusion imaging NM LUNG VENT / PERF VQ Radiology Routine Other secondary pulmonary hypertension (HCC) 1 Occurrences starting 06/27/2023 until 07/26/2024 [facility] Work Phone: Comment on above: 1 Occurrences starti ng 06/27/2023 until 07/26/2024 REFER FOR ADMIT INTERVIEW REFER FOR ADMIT INTERVIEW Procedures Routine Radiation proctitis Ordered: 07/22/2023 [facility] Work Phone: Comment on above: Ordered: 07/22/2023 End: 08-07-2023 Screening colonoscopy COLONOSCOPY SCREENING Endoscopy Routine Rectal bleeding 1 Occurrences starting 08/07/2022 until 08/07/2023 [facility] Work Phone: Comment on above: 1 Occurrences starti ng 08/07/2022 until 08/07/2023 End: 09-26-2022 Screening colonoscopy COLONOSCOPY SCREENING Endoscopy Routine Rectal bleeding 1 Occurrences starting 09/26/2022 until 09/26/2022 [facility] Work Phone: Comment on above: 1 Occurrences starti ng 09/26/2022 until 09/26/2022 SPIROMETRY BASELINE ONLY SPIROME TRY BASELINE ONLY PFT Routine ILD (interstitial lung disease) (HCC) 08/29/2023 9:27 AM EDT [facility] Work Phone: SPIROMETRY WITH DILA TOR IF OBSTRUCTED SPIROMETRY WITH DILATOR IF OBSTRUCTED PFT Routine Dyspnea, unspecified type 06/27/2023 10:15 AM EDT [facility] Work Phone: [facility] Immunizations Immunization Date Immunization Notes Care Provider [facility] 06-27-2021 COVID-19 vaccine, fu ll dose (MODERNA) Henry Ramos MD Work Phone: [facility] 11-21-2020 COVID-19 vaccine, fu ll dose (MODERNA) Henry Ramos MD Work Phone: [facility] Payers Date Payer Category Payer Unknown MMO MMO [employer] [id number] 2020-Present [phone] [address] [place] [address] PPO [id number] 2020 Unknown [id number] 1960 Unknown [id number] 74 1960 Unknown [id number] 74 1960 Unknown [id number] 2.16.840.1.374564.3.579.2.5 93 1960 Unknown [id number] [id number] 93 1960 Unknown [id number] 2.16.840.1.079520.3.579.2.5 93 1960 Unknown [id number] [id number] 93 1960 Unknown [id number] 2.16.840.1.760617.3.579.2.5 93 1960 Unknown [id number] 2.16.840.1.046737.3.579.2.5 93 1960 Unknown [id number] 2.16.840.1.846319.3.579.2.5 93 1960 Unknown [id number] 2.16.840.1.823888.3.579.2.1 259 1960 Unknown [id number] [id number] 259 1960 Unknown [id number] 2.16.840.1.180449.3.579.2.1 259 1960 Unknown [id number] [id number] 259 1959 [facility] [id number] 1959 Unknown [id number] Social History Date Type Detail Facility Start: 07-07-2021 End: 08-07-2022 Tobacco smoking status WIIS Never smoker [facility] Start: 07-07-2021 End: 08-07-2022 Tobacco use and exposure Never used [facility] Start: 1960 Sex Assigned At Not on file [employer] Phone: Start: 03-03-2022 End: 09-26-2022 Exposure to SARS-CoV-2 (event) Not sure [facility] Start: 03-13-2022 End: 09-29-2023 Alcohol intake Current drinker of alcohol (finding) [facility] Start: 07-28-2019 History SDOH Alcohol Comment 3 drinks per month [facility] Start: 03-05-2023 End: 06-27-2023 Sex Assigned At [facility] Start: 03-05-2023 End: 06-27-2023 History of Social function [facility] Adult Depression Screening Assessment 0 [facility] Clinical Notes 03-13-2022 to 10-23-2023 Note Date & Type Note Facility 10-23-2023 Evaluation note Encounter Date Diagnosis Assessment Notes Oct, Iron deficiency anemia due to chronic blood loss (ICD-10 - D50.0) Oct, Decreased thyroid stimulating hormone (TSH) level (ICD-10 - R79.89) Oct, Pulmonary hypertension (ICD-10 - I27.20) [facility] Other 11-13-2023 NoteHNO ID: [id number] Author: [place], DO Service: ? Author [...] mortality and/or complications of treatment plan: low [facility]11-13-2023 History of Present illness Narrative* South [...] independently interpreted: none I have discussed Isabel Vasquezs treatment plan and/or results with patient. Treatment [...] of treatment plan: low [facility]11-[facility] Evaluation note* Encounter Date Diagnosis Assessment Notes Treatment Notes Treatment Clinical Notes Sep, Iron deficiency anemia due to chronic blood loss (ICD-10 - D50.0) Sep, 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) [facility] Other 11-01-2023 Evaluation note* Encounter Date Diagnosis Assessment Notes Treatment Notes Treatment Clinical Notes Sep, Elevated liver enzymes (ICD-10 - R74.8) Sep, Cholestasis (ICD-10 - K83.1) Sep, Thyrotoxicosis 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 storm, 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 - E05.90) [facility] Other 10-30-2023 Evaluation note* Encounter Date Diagnosis Assessment Notes Treatment Notes Treatment Clinical Notes Aug, Decreased thyroid stimulating hormone (TSH) level (ICD-10 - R79.89) [facility] Other 10-27-2023 Evaluation note* Encounter Date Diagnosis [...] Ferritin May be candidate for Fe IV [facility] Other 10-18-2023 Evaluation note* Encounter Date Diagnosis Assessment Notes Treatment Notes Treatment Clinical Notes Aug, Radiation proctitis (ICD-10 - K62.7) Aug, Iron deficiency anemia due to chronic blood loss (ICD-10 - D50.0) [facility] Other 10-17-2023 NoteHNO ID: [id number] Author: Brannon Sung APRN.ANIMAL CARE PROVIDER Service: ? 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 ANIMAL CARE PROVIDER: Brannon Sung APRN.ANIMAL CARE PROVIDER Performed by: ANIMAL CARE PROVIDER Indications and Patient Condition Indications for airway [...] no Airway not difficult SIGNATURE: Brannon Sung APRN.ANIMAL CARE PROVIDER PATIENT NAME: Isabel Waddell DATE: September 02, 2023 TIME: 8:05 AM [facility]: [id number] note * Encounter Date Diagnosis Assessment Notes Treatment Notes Treatment Clinical Notes Aug, Dilated cardiomyopathy (ICD-10 - I42.0) Echo: LVEF normal, RVSP 31, LAE [facility] Other 10-13-2023 NoteHNO ID: [id number] Author: Heidi Menard MD Service: ? Author Type: Fellow Type: Progress Notes Filed: 08/29/2023 4:02 PM Note Text: Ms. Waddell is a 63 year old female who presents to the [facility] [place]. 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 Author Type: Registered Resp Therapist Type: Progress Notes Filed: 08/29/2023 9:52 AM Note Text: PULM FUNCTION SMARTBLOCK: Provider: Mike Presley MD Spirometry: 1 DLCO: 1 LV - Box[facility] History and physical note* Elder Galan APRN.CUSTOMER SERVICES MANAGER - 08/29/2023 11:00 AM EDT COLON AND [...] of treatment plan: high documented in this encounterP[facility]10-13-2023 NoteHNO ID: [id number] Author: Marshal Vasquez RT(Be) Service: ? Author Type: Technologist Type: Progress [...] IV DATA: Not applicable SIGNED BY: DAVID Munoz) August 29, 2023 9:10 [facility]10-13-2023 History of Present illness Narrative* Heidi Menard MD - 08/29/2023 10:00 AM EDT Images from the original note were not included. Ms. Waddell is a 63 year old female who presents to the [facility] [place]. 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 Adame who agrees with above. Heidi Hatfield MD Pulmonary and Critical Care Fellow [facility] [place] Staff note: I have personally interviewed and [...] Hilton Adame MD 08/29/2023 documented in this encounterP[facility]10-[facility]23 History of Present illness Narrative* Sveta Roman, AD OPERATIONS COORDINATOR - 08/29/2023 9:52 AM EDT PULM FUNCTION SMARTBLOCK: Provider: Mike Presley MD Spirometry: 1 DLCO: 1 LV - Box: 1 documented in this encounterP[facility] Hospital10-13-2023 History of Present illness Narrative* Marshal Vasqeuz RT(R) - 08/29/2023 9:00 AM EDT Radiology [...] 29, 2023 9:10 AM documented in this encounterP[facility]10-10-2023 NoteHNO ID: [id number] Author: Gilberto Beth Service: ? Author Type: ? Type: Progress Notes Filed: 08/26/2023 4:28 PM Note Text: Lebeau to pair w dlco/lv on [facility] History of Present illness Narrative* Gilberto Beth - 08/26/2023 4:16 PM EDT Lebeau to pair w dlco/lv on upcoming f/u visit documented in this encounterP[facility]10-06-2023 NoteHNO ID: [id number] Author: Nuvia Grewal RT (R) Service: Radiology Author Type: Gang Supervisor Pipe Lines Type: Progress Notes Filed: 08/22/2023 8:34 AM [...] BY: DAVID Ann) August 22, 2023 8:33 AMO[facility] [id number] History of Present illness Narrative* Nuvia Grewal [...] BY: DAVID Ann) August 22, 2023 8:33 AM documented in this encounterP[facility]09-18-2023 Evaluation note* Encounter Date Diagnosis Assessment [...] symptoms. Will initiate antibiotics and have called [facility]. Since her symptoms developed > 5 days ago, no Paxlovid has been prescribed Jul, Bronchitis, not specified as acute or chronic (ICD-10 - J40) Instructed to use Robitussin or Mucinex for cough, saline or Flonase NS for congestion, Tylenol for pain and fever. [facility] Other 09-05-2023 Miscellaneous Notes* Telephone Encounter - Divya Karimi - 07/22/2023 3:17 PM EDT Isabel Waddell accepts 09/01 and 09/02 dates for preop and surgery documented in this encounterP[facility]09-[facility]-2023 Miscellaneous Notes* Telephone Encounter - Enid Baker - 07/22/2023 2:48 PM EDT [phone] Patient calling to reschedule her EUA. documented in this encounterPike [facility] Hospital08-22-2023 Evaluation note* Encounter Date Diagnosis Assessment Notes Treatment Notes Treatment Clinical Notes Jun, SHERIF (generalized anxiety disorder) (ICD-10 - F41.1) [facility] Other 08-18-2023 History and physical note* South [...] regular bowel movements. 03/05/23 Juan Manuel Medina CUSTOMER SERVICES MANAGER: Isabel Waddell is a 62 year old [...] 150 mg by mouth daily at bedtime. [id number]-FISH OIL-L.CASEI ORAL Take by mouth once daily. [...] Documents Reviewed/ordered: Review of prior notes from SUPERVISOR [employer]ATING/ON[employer], pulmonary medicine Review of prior operative reports [...] of treatment plan: high documented in this encounterPike [facility]08-11-2023 NoteHNO ID: [id number] Author: Heidi Menard MD Service: ? Author Type: Fellow Type: Progress Notes Filed: 06/29/2023 8:14 AM Note Text: Ms. Waddell is a 63 year old female who presents to the [facility] [place]. Consultation requested by Self. 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 Silica: No significant exposure. Talbot: No significant exposure. Organic HP antigen: No [...] Rectal, Enteric Tube, Stom (more content not included)...[facility]08-11-2023 NoteHNO ID: [id number] Author: Dayan Marley RRT Service: ? Author Type: Registered Resp Therapist Type: Progress Notes Filed: 06/27/2023 10:27 AM Note Text: PULM FUNCTION SMARTBLOCK: Provider: Pedro Rodarte MD Spirometry: 1 System: 3 - [id number] Pickerington [facility]08-11-2023 History of Present illness Narrative* Heidi Menard MD - 06/27/2023 10:29 AM EDT Images from the original note were not included. Ms. Waddell is a 63 year old female who presents to the [facility] [place]. Consultation requested by Self. 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 Silica: No significant exposure. Talbot: No significant exposure. Organic HP antigen: No [...] 150 mg by mouth daily at bedtime. [id number]-FISH OIL-L.CASEI ORAL Take by mouth once daily. [...] Dr. Cisneros who agrees with above. Heidi Hatfield MD Pulmonary and Critical Care Fellow [facility] [place] STAFF ATTENDING NOTE I have personally interviewed [...] Mike Thompson MD 06/29/2023 documented in this encounterPike [facility] Hospital08-11-2023 History of Present illness Narrative* Dayan Marley RRT - 06/27/2023 10:26 AM EDT PULM FUNCTION SMARTBLOCK: Provider: Pedro Rodarte MD Spirometry: 1 System: 3 - [id number] documented in this encounterPike [facility] Hospital07-07-2023 Evaluation note* Encounter Date Diagnosis Assessment [...] and feet daily for blisters and ulcerations. [facility] Other 06-27-2023 Evaluation note* Encounter Date Diagnosis Assessment Notes Treatment Notes Treatment Clinical Notes Apr, History of total right hip replacement (ICD-10 - Z96.641) [facility] Other 06-07-2023 Evaluation note* Encounter Date Diagnosis [...] F41.1) Healthy diet, exercise and keep active [facility] Other 2023 Evaluation note* Encounter Date Diagnosis Assessment Notes Treatment Notes Treatment Clinical Notes March, Mild intermittent asthma without complication (ICD-10 - J45.20) [facility] Other 05-05-2023 Evaluation note* Encounter Date Diagnosis Assessment Notes Treatment Notes Treatment Clinical Notes March, Dyspnea on exertion (ICD-10 - R06.09) [facility] Other 04-24-2023 Evaluation note* Encounter Date Diagnosis Assessment Notes Treatment Notes Treatment Clinical Notes Feb, Shortness of breath (ICD-10 - R06.02) Feb, Subacute cough (ICD-10 - R05.2) [facility] Other 04-19-2023 Instructions* Patient Instructions* Juan Manuel MedinaBETTY.MONSERRAT - 03/05/2023 9:47 AM EDT Images from the original note were not included. Thank you for seeing me in clinic today. As we discussed, my recommendations are as follows: 1.Colonoscopy If you have any questions about the above treatment plan, please do not hesitate to call the officeor send me a ImageTag message. Bowel Preparation Instructions for: Miralax-Gatorade Preparations [...] If you do not have a responsible marine engine driver (family member or friend) withyou to take you home, your exam cannot be done with sedation and will be cancelled. Please bring a list of all of your current medications, including any Ksgs-ide-Pjskowo medications with you. Medications If you take [...] your exam. 2 10/2019 documented in this encounterP[facility]04-19-2023 History and physical note * Juan [...] Abs Lymph 1.00 - 4.00 k/uL 1.31 Yates% % 11.1 Abs Yates <0.87 k/uL 0.50 Eosin% % 3.1 Abs [...] 150 mg by mouth daily at bedtime. [id number]-FISH OIL-L.CASEI ORAL Take by mouth once daily. [...] -radiation proctitis?? This note was dictated using [employer] speech recognition software and may contain some errors that were a result of the program not accurately transcribing what was dictated. Juan Manuel Medina APRN.CNP documented in this encounterPike [facility] Hospital03-10-2023 Evaluation note* Encounter Date Diagnosis Assessment Notes Treatment Notes Treatment Clinical Notes Jan, Acute bronchitis due to other specified organisms (ICD-10 - J20.8) Instructed to use Robitussin or Mucinex for cough, saline or Flonase NS for congestion, Tylenol for pain and fever. [facility] Other 03-06-2023 Evaluation note* Encounter Date Diagnosis [...] weeks for the cough to go away [facility] Other 02-17-2023 NoteHNO ID: [id number] Author: Henry Ramos MD Service: ? Author Type: Physician Type: Progress Notes Filed: 01/12/2023 11:27 PM Note Text: Gynecologic Oncology [facility] Follow up visit Date of service: [...] differentiation, FIGO grade 2. 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 GZ/ka 05/28/2021 COMMENT The tumor cells are diffusely and strongly positive for immunohistochemical stain for [place] 8, supporting the above diagnosis. The patient [...] 150 mg by mouth daily at bedtime. [id number]-FISH OIL-L.CASEI ORAL Take by mouth once daily. Lactobac no.41/Bifidobact no.7 (PROBIOTIC-10 ORAL) Take by mouth once daily. MULTIVITAMIN TAB Take (more content not included)...[facility] 01-03-2023 History of Present illness Narrative* Henry Ramos MD - 01/03/2023 3:20 PM EST Gynecologic Oncology [facility] Follow up visit Date of service: [...] differentiation, FIGO grade 2. 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 GZ/ka 05/28/2021 COMMENT The tumor cells are diffusely and strongly positive for immunohistochemical stain for [place] 8, supporting the above diagnosis. The patient [...] 150 mg by mouth daily at bedtime. [id number]-FISH OIL-L.CASEI ORAL Take by mouth once daily. [...] improving. She has a trip planned to [facility] next week for 10 days. PHYSICAL [...] or swelling. Deep tendon reflexes are present Php Software Engineer for exam: Gurpreet Villarreal APRN.CUSTOMER SERVICES MANAGER RESULTS: CA 125 (U/mL) Date Value 12/13/2021 9 06/04/2021 8 07/12/2019 15 No new results to review ASSESSMENT & PLAN: 05/25/2021-Dee Dee Carter APRN.CUSTOMER SERVICES MANAGER [place] endometrioid type endometrial adenocarcinoma, FIGO grade [...] review with PCP 05/30/2021- Dee Dee Carter APRN.CUSTOMER SERVICES MANAGER (distance health visit) 61 yo female with [...] her today already. Test vaginal lesion for ER/MA receptors See me September 19 for post [...] hyperthyroidism, advised follow up with PCP and Portfolio Administrator. Ernesto Chacko APRN.CUSTOMER SERVICES MANAGER 03/13/2022 Recurrent Endometrial cancer with recurrence in [...] Recommend she start following with a [facility] end maker for her rectal bleeding. We will assistwith [...] 03, 2023 4:37 PM documented in this encounterPike [facility] Hospital02-08-2023 Miscellaneous Notes* Telephone Encounter - Aretha [...] 12/25/2022 2:19 PM EST ----- Message from [email or web address] Lorena sent at 12/25/2022 12:04 PM EST ----- Regarding: Rachel Patient bleeding and clotting almost daily since Colonoscopy. September was the Colonoscopy. Concerned and would like to know if she should schedule an appointment. [phone] documented in this encounterPike [facility] Hospital11-10-2022 Nurse Note* Francisca Gómez RN - [...] RN In Department: GASTROENTEROLOGY [facility] Miscellaneous Notes* Sedation Documentation - Aretha Deluna RN - 09/26/2022 12:00 PM EST Grounding pad placed at right flank. Skin Intact. LOT#[id number]. [facility] Miscellaneous Notes* Telephone Encounter - Kelly Ch MA - 09/19/2022 3:49 PM EDT Attempted to reach the patient at the contact number that they provided [phone] (home) . 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 2 10/2019 [facility] History of Present illness Narrative* Henyr Ramos MD - 08/07/2022 3:20 PM EDT Gynecologic Oncology [facility] Follow up visit Date of service: [...] differentiation, FIGO grade 2. 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 GZ/ka 05/28/2021 COMMENT The tumor cells are diffusely and strongly positive for immunohistochemical stain for [place] 8, supporting the above diagnosis. The patient [...] 150 mg by mouth daily at bedtime. [id number]-FISH OIL-L.CASEI ORAL Take by mouth once daily. [...] groin. LOWER EXTREMITIES: No swelling or edema. Php Software Engineer for exam: Promise Mclaughlin MA RESULTS: 05/25/2021 - VAGINAL BIOPSY Vagina, biopsy - Consistent with endometrioid adenocarcinoma (see comment). GZ/ka 05/28/2021 COMMENT The tumor cells are diffusely and strongly positive for immunohistochemical stain for [place] 8, supporting the above diagnosis. The patient [...] dedicated report for findings in the abdomen Industrial Cleaning Technician (topogram) images: None CA 125 (U/mL) Date Value 12/13/2021 9 06/04/2021 8 07/12/2019 15 ASSESSMENT & PLAN: 05/25/2021-Dee Dee Carter APRN.CUSTOMER SERVICES MANAGER [place] endometrioid type endometrial adenocarcinoma, FIGO grade [...] symptoms - Referral to Dr. Sita Naidu [facility] - Mammogram gets this done locally, will review with PCP - Colonoscopy due, will review with PCP 05/30/2021- Dee Dee Carter APRN.CUSTOMER SERVICES MANAGER (distance health visit) 61 yo female with [...] her today already. Test vaginal lesion for ER/MA receptors See me September 19 for post [...] hyperthyroidism, advised follow up with PCP and Portfolio Administrator. Ernesto Chacko APRN.CUSTOMER SERVICES MANAGER 03/13/2022 Recurrent Endometrial cancer with recurrence in [...] 07, 2022 4:19 PM documented [facility] History of Present illness Narrative* Henry Ramos MD - 03/13/2022 2:50 PM EDT Gynecologic Oncology [facility] Follow up visit Date of service: [...] differentiation, FIGO grade 2. 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 GZ/ka 05/28/2021 COMMENT The tumor cells are diffusely and strongly positive for immunohistochemical stain for [place] 8, supporting the above diagnosis. The patient [...] 150 mg by mouth daily at bedtime. [id number]-FISH OIL-L.CASEI ORAL Take by mouth once daily. [...] absent LOWER EXTREMITIES: No swelling or edema. Php Software Engineer for exam: Modlo RESULTS: 05/25/2021 - VAGINAL BIOPSY Vagina, biopsy - Consistent with endometrioid adenocarcinoma (see comment). THELMA/fiorella 05/28/2021 COMMENT The tumor cells are diffusely and strongly positive for immunohistochemical stain for [place] 8, supporting the above diagnosis. The patient [...] dedicated report for findings in the abdomen Industrial Cleaning Technician (topogram) images: None CA 125 (U/mL) Date Value 12/13/2021 9 06/04/2021 8 07/12/2019 15 ASSESSMENT & PLAN: 05/25/2021-Dee Dee Carter APRN.CUSTOMER SERVICES MANAGER [place] endometrioid type endometrial adenocarcinoma, FIGO grade [...] symptoms - Referral to Dr. Sita Naidu [facility] Maintenance - Mammogram gets this done locally, will review with PCP - Colonoscopy due, will review with PCP 05/30/2021- Dee Dee Carter APRN.CUSTOMER SERVICES MANAGER (distance health visit) 61 yo female with [...] her today already. Test vaginal lesion for ER/MA receptors See me September 19 for post [...] hyperthyroidism, advised follow up with PCP and Portfolio Administrator. Ernesto Chacko APRN.CUSTOMER SERVICES MANAGER 03/13/2022 Recurrent Endometrial cancer with recurrence in [...] Past Histories independently gathered by the clinical claims support specialist and the remaining scribed note accurately describes my personal service to the patient. [facility] Diagnosis Dizziness- Primary Dizziness and giddiness Dehydration documented in this encounter [employer] Phone: evaluation note* Diagnosis Recurrent carcinoma of endometrium (HCC)- Primary Malignant neoplasm of corpus uteri, except isthmus Vaginal atrophy Postmenopausal atrophic vaginitis Foreshortening of vagina documented in this [facility]* Diagnosis Recurrent carcinoma of endometrium (HCC)- Primary Malignant neoplasm of corpus uteri, except isthmus Radiation proctitis Other specified disorder of rectum and anus Foreshortening of vagina Endometrial cancer (HCC) Malignant neoplasm of corpus uteri, except isthmus Vaginal atrophy Postmenopausal atrophic vaginitis Rectal bleeding Hemorrhage of rectum and anus documented in this [facility]* Diagnosis History of thyroid disease- Primary Personal history of other endocrine, metabolic, and immunity disorders Rectal bleeding Hemorrhage of rectum and anus documented in [facility]* Diagnosis Recurrent carcinoma of endometrium (HCC)- Primary Malignant neoplasm of corpus uteri, except isthmus Radiation proctitis Other specified disorder of rectum and anus Blood per rectum Hemorrhage of rectum and anus documented in this encounter [facility] noteNo [employer] Evaluation note* Diagnosis Rectal bleeding- Primary Hemorrhage of rectum and anus documented in this [facility]* Diagnosis Radiation proctitis- Primary Other specified disorder of rectum and anus documented in [facility]* Diagnosis Dyspnea, unspecified type- Primary documented in this encounter [facility]* Diagnosis 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) documented [facility]* Diagnosis Radiation proctitis- Primary Other specified disorder of rectum and anus [facility]* Diagnosis Endometrial cancer (HCC)- Primary Malignant neoplasm of corpus uteri, except isthmus Radiation proctitis Other specified disorder of rectum and anus Radiation proctitis Other specified disorder of rectum and anus documented in [facility]* Diagnosis Radiation proctitis- Primary Other specified disorder of rectum and anus documented [facility]* Diagnosis ILD (interstitial lung disease) (HCC)- Primary Postinflammatory pulmonary fibrosis Radiation proctitis Other specified disorder of rectum and anus documented in this encounter [facility] note* Diagnosis ILD (interstitial lung disease) (HCC) Postinflammatory pulmonary fibrosis Radiation proctitis Other specified disorder of rectum and anus documented in this encounter [facility] note* Diagnosis Interstitial pulmonary disease (HCC) Postinflammatory pulmonary fibrosis Radiation proctitis Other specified disorder of rectum and anus documented in this encounter [facility] note* Diagnosis Dyspnea and respiratory abnormalities- Primary Other dyspnea and respiratory abnormality Calcified nodule Localized superficial swelling, mass, or lump Iron deficiency anemia due to chronic blood loss Iron deficiency anemia secondary to blood loss (chronic) Radiation proctitis Other specified disorder of rectum and anus documented in this encounter [facility] note* Diagnosis Dyspnea, unspecified type Radiation proctitis Other specified disorder of rectum and anus documented in this encounter [facility] note* Diagnosis Pre-op evaluation- Primary Preoperative examination, unspecified Radiation proctitis Other specified disorder of rectum and anus documented in this encounter [facility] note* Diagnosis Interstitial pulmonary disease (HCC) Postinflammatory pulmonary fibrosis documented in this encounter [facility] note* Diagnosis Radiation proctitis- Primary Other specified disorder of rectum and anus Endometrial cancer (HCC) Malignant neoplasm of corpus uteri, except isthmus documented in this encounter [facility] general Narrative - Reported* Type Description Date Medical History menopause Medical History endometrial cancer hx Surgical History Bilateral Knee Scope Surgical History Bilateral Shoulder Scope Surgical History Bilateral Carpal Tunnel Surgical History x 3 Surgical History Pituatary Tumor Surgical History hysterectomy Surgical History right thumb excision of trapezi 09/14/2020 [facility] Other History general Narrative - Reported* Type Description Date Medical History menopause Medical History endometrial cancer hx Surgical History Bilateral Knee Scope Surgical History Bilateral Shoulder Scope Surgical History Bilateral Carpal Tunnel Surgical History x 3 Surgical History Pituatary Tumor Surgical History hysterectomy Surgical History right thumb excision of trapezi 09/14/2020 Hospitalization History see surgical history [facility] Other HisInCytu general Narrative - Reported* Type Description Date Medical History menopause Medical History endometrial cancer hx Medical History Dilated Cardiomyopathy Surgical History Bilateral Knee Scope Surgical History Bilateral Shoulder Scope Surgical History Bilateral Carpal Tunnel Surgical History x 3 Surgical History Pituatary Tumor Surgical History hysterectomy Surgical History right thumb excision of trapezi um 09/14/2020 Hospitalization History see surgical history [facility] Other Hisprgx general Narrative - Reported* Type Description Date Medical History menopause Medical History endometrial cancer hx Medical History Dilated Cardiomyopathy Surgical History Bilateral Knee Scope Surgical History Bilateral Shoulder Scope Surgical History Bilateral Carpal Tunnel Surgical History x 3 Surgical History Pituatary Tumor Surgical History hysterectomy Surgical History right thumb excision of trapezi um 09/14/2020 Surgical History Sigmoidoscopy 08/2023 Hospitalization History see surgical history [facility] Other Hisnlry general Narrative - Reported* Type Description Date [...] Sigmoidoscopy 08/2023 Hospitalization History see surgical history [facility] Other Hospital Discharge instructions* Attachments The following attachments cannot be sent through Care Everywhere. * Dehydration (Divehi) * Oral Rehydration (Divehi) [facility]: reason for referral (narrative)* Outpatient Procedure (Routine) - Closed Specialty Diagnoses / Procedures Referred By Kelly alberts Referred To Contact [facility] Diagnoses Rectal bleeding Procedures COLONOSCOPY SCREENING COLONOSCOPY FLX DX W/COLLJ SPEC WHEN Ernesto Noble APRN.CNP [address] [place] [address] [facility] [address] [address] Referral ID Status Reason Start Date Expiration Date V isits Requested Visits Authorized [id number] Closed Auto-Generate d Referral 08/07/2022 08/07/2023 1 1 [facility] for referral (narrative)* Outpatient Procedure (Routine) - Pending Review Specialty Diagnoses / Procedures Referred By Kelly alberts Referred To Contact [facility] Diagnoses Rectal bleeding Procedures COLONOSCOPY (THERAPEUTIC) COLONOSCOPY FLX ABLATION TUMOR POLYP/OTHER Juan Manuel Mendoza APRN.CNP [address] [place] [address] [place] [address] [facility] [place] [address] [place] [address] Referral ID Status Reason Start Date Expiration Date Visits Requested Visits Authorized [id number] Pending Review Auto-Generat ed Referral 03/05/2023 03/05/2024 1 1 [facility] for referral (narrative)* Outpatient Procedure (Routine) - Authorized Specialty Diagnoses / Procedures Referred By Contac t Referred To [facility] Diagnoses Other secondary pulmonary hypertension (HCC) Procedures ECHO ECHO TTHRC R-T 2D W/WOM-MODE COMPL SPEC&COLR D Mike Presley MD [address] [place], [place] [id number] [facility] [place] [address] [place] [address] Referral ID Status Reason Start Date Expiration Date Visits Requested Visits Authorized [id number] Authorized Auto-Generat ed Referral 06/27/2023 06/26/2024 1 1 * Diagnostic Procedure Only (Routine) - Pending Review Specialty Diagnoses / Procedures Referred By Contac t Referred To Contact MOLECULAR & FUNCTIONAL IMAGING Diagnoses Other secondary pulmonary hypertension (HCC) Procedures NM LUNG VENT / PERF VQ PULMONARY VENTILATION & PERFUSION IMAGING Mike Presley MD [address] [place] [address] [facility] [address] [id number] Referral ID Status Reason Start Date Expiration Date Visits Requested Visits Authorized [id number] Pending Review Auto-Generat ed Referral 06/27/2023 07/26/2024 1 1 * Outpatient Procedure (Routine) - Pending Review Specialty Diagnoses / Procedures Referred By Contac t Referred To [facility] Diagnoses Interstitial pulmonary disease (HCC) Procedures LUNG VOLUMES Mike Presley MD [address] [place] [address] [place] [address] Referral ID Status Reason Start Date Expiration Date Visits Requested Visits Authorized [id number] Pending Review Auto-Generat ed Referral 06/27/2023 07/26/2024 1 1 * Outpatient Procedure (Routine) - Authorized Specialty Diagnoses / Procedures Referred By Contac t Referred To [facility] Diagnoses Interstitial pulmonary disease (HCC) Procedures LUNG DIFFUSION CAPACITY (DLCO) DIFFUSING CAPACITY Mike Presley MD [address] [place], [place] [id number] [place] [address] Referral ID Status Reason Start Date Expiration Date Visits Requested Visits Authorized [id number] Authorized Auto-Generat ed Referral 06/27/2023 07/26/2024 1 1 * MRI/CT (Routine) - Authorized Specialty Diagnoses / Procedures Referred By Contac t Referred To Contact CT IMAGING Diagnoses Interstitial pulmonary disease (HCC) Procedures CT CHEST WO IVCON DIAGNOSTIC COMPUTED TOMOGRAPHY THORAX W/O CNTRST Mike Presley MD [address] [place] [address] [address] [address] Referral ID Status Reason Start Date Expiration Date Visits Requested Visits Authorized [id number] Authorized Auto-Generat ed Referral 06/27/2023 07/26/2024 1 1 [facility] for referral (narrative)* Outpatient Procedure (Routine) - Authorized Specialty Diagnoses / Procedures Referred By Contac t Referred To Contact [facility] Diagnoses ILD (interstitial lung disease) (HCC) Procedures SPIROMETRY BASELINE ONLY SPMTRY W/VC EXPIRATORY BERNIE W/WO MXML VOL VNTJ Mike Presley MD [address] [place] [address] [place] [id number] Referral ID Status Reason Start Date Expiration Date Visits Requested Visits Authorized [id number] Authorized Auto-Generat ed Referral 3 09/24/2024 1 1 [facility] for visit Narrative* Outpatient Procedure (Routine) - Closed Specialty Diagnoses / Procedures Referred By Kelly alberts Referred To Contact [facility] Diagnoses Rectal bleeding Procedures COLONOSCOPY SCREENING COLONOSCOPY FLX DX W/COLLJ SPEC WHEN PFRMD Ernesto Chacko APRN.CUSTOMER SERVICES MANAGER [address] [place] [address] [place] [address] Referral ID Status Reason Start Date Expiration Date V isits Requested Visits Authorized [id number] Closed Auto-Generate d Referral 08/07/2022 08/07/2023 1 1 [facility] Summary Purpose Family History No Family History Records FoundNo Family History Records FoundNo Family History Records FoundNo Family History Records FoundNo Family History Records FoundNo Family History Records FoundNo Family History Records Found Advance Directives No Advanced Directives Records FoundDocuments on File Type Date Recorded Patient Machine Trimmer 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 Advance Directive(s) 08/12/2019 10:47 AM Advance Directive(s) 07/28/2019 9:20 AM Documents on File Type Date Recorded Patient Machine Trimmer 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 Advance Directive(s) 07/28/2019 9:20 AM Documents on File Type Date Recorded Patient Machine Trimmer 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 Advance Directive(s) 07/28/2019 9:20 AM Reason for Referral Specialty Diagnoses / Procedures Referred By Kelly alberts Referred To Contact Gastroenterology Diagnoses Rectal bleeding Procedures CONSULT TO GASTROENTEROLOGY OFFICE/OUTPATIENT NEW HIGH MDM 60-74 MINUTES Ernesto Chacko, BETTY.CUSTOMER SERVICES MANAGER [address] [place] [address] Referral ID Status Reason Start Date Expiration Date Visits Requested Visits Authorized [id number] Authorized PCP Requested Referral 08/07/2022 08/07/2023 1 1 Specialty Diagnoses / Procedures Referred By Contac t Referred To Contact [facility] Diagnoses Rectal bleeding Procedures COLONOSCOPY SCREENING COLONOSCOPY FLX DX W/COLLJ SPEC WHEN PFRMD Ernesto Chacko APRN.CUSTOMER SERVICES MANAGER [address] [phone] [facility] [place] [address] [phone] Referral ID Status Reason Start Date Expiration Date Visits Requested Visits Authorized [id number] Pending Review Auto-Generat ed Referral 08/07/2022 08/07/2023 1 1 Specialty Diagnoses / Procedures Referred By Biancaac t Referred To Contact CT IMAGING Diagnoses Interstitial pulmonary disease (HCC) Procedures CT CHEST WO IVCON DIAGNOSTIC COMPUTED TOMOGRAPHY THORAX W/O CNTRST Mike Presley MD [address] [place] [phone] Imaging [place] [address] Referral ID Status Reason Start Date Expiration Date V isits Requested Visits Authorized [id number] Closed Auto-Generate d Referral 06/27/2023 07/26/2024 1 1 Reason Iron deficiency anem ia Diagnosis 1 Iron deficiency anem ia due to chronic blood loss (D50.0) Referral Organization [facility] Referring Provider First Name Roland Referring Provider Last Name Maggie Referring Provider Specialty Internal Me dicine Referred Organization [facility] Referred Provider NGA TATUM Referred Address [address] [place],[address] Referred Provider Specialty Hematology Referral Priority Routine General Notes Mrs. Waddell is being r eferred for symptomatic iron deficiency anemia. 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 She has completed endoscopic treatment for her chronic bleeding and has received 2 units of PRBC [facility]. I am referring [...] DATE [facility] DATE CREATED AUTHOR AUTHOR'S ORGANIZ ATION 11/23/2021 [facility] DATE CREATED AUTHOR AUTHOR'S ORGANIZ ATION 03/20/2022 [facility] DATE CREATED AUTHOR AUTHOR'S ORGANIZ ATION 03/28/2023 [facility] DATE CREATED AUTHOR AUTHOR'S ORGANIZ ATION 08/25/2023 [facility] DATE CREATED AUTHOR AUTHOR'S ORGANIZ ATION 10/09/2023 [facility] DATE CREATED AUTHOR AUTHOR'S ORGANIZ ATION 03/06/2024 [facility] Special[facility] EPIC Reason for Visit (unrecogniz ed section and content) Reason Comments Dizziness Pt c/o shortness of breath, dehydrated, weakness and dizziness. Pt has hx cancer and is having radiation treatments. Denies any pain Dehydration Shortness of Breath Reason Comments Follow Up Reason Comments follwo up Reason Comments Education Of Patient/family LM for 09/26 appt Reason Comments Returning Patient's Call Reason Comments Rectal Bleeding Post Radiation Specialty Diagnoses / Procedures Referred By Contac t Referred To Contact Gastroenterology Diagnoses Rectal bleeding Procedures CONSULT TO GASTROENTEROLOGY OFFICE/OUTPATIENT [facility] MDM 60-74 MINUTES Ernesto Chacko, MANAGER FLEET.CUSTOMER SERVICES MANAGER [address] [place] [address] Referral ID Status Reason Start Date Expiration Date V isits Requested Visits Authorized [id number] Closed PCP Requested Referral 08/07/2022 08/07/2023 1 1 Reason Comments Spirometry Specialty Diagnoses / Procedures Referred By Contac t Referred To Contact [facility] Diagnoses Dyspnea, unspecified type Procedures SPIROMETRY WITH DILATOR IF OBSTRUCTED BRNCDILAT RSPSE SPMTRY PRE&POST-BRNCDILAT ADMN Pedro Rodarte MD [address] [phone] [facility] [place] [address] [place] [address] Referral ID Status Reason Start Date Expiration Date V isits Requested Visits Authorized [id number] Closed Auto-Generate d Referral 05/23/2023 06/21/2024 1 1 Reason Comments New Reason Comments New Radiation proctitis Specialty Diagnoses / Procedures Referred By Contac t Referred To Contact Colon and Rectal Surgery Diagnoses Radiation proctitis Procedures CONSULT TO COLO-RECTAL SURGERY OFFICE/OUTPATIENT NEW HIGH MDM 60-74 MINUTES Gurpreet Villarreal, MANAGER FLEET.CUSTOMER SERVICES MANAGER [address] [place] [address] [place] DO [address] [place] [address] Referral ID Status Reason Start Date Expiration Date V isits Requested Visits Authorized [id number] Closed PCP Requested Referral 05/16/2023 05/15/2024 1 1 Reason Comments Patient Update Specialty Diagnoses / Procedures Referred By Contac t Referred To Contact [facility] Diagnoses ILD (interstitial lung disease) (HCC) Procedures SPIROMETRY BASELINE ONLY SPMTRY W/VC EXPIRATORY BERNIE W/WO MXML VOL VNTJ Mike Presley MD [address] [place] [address] [facility] [place] [address] [place] [address] Referral ID Status Reason Start Date Expiration Date V isits Requested Visits Authorized [id number] Closed Auto-Generate d Referral 08/26/2023 09/24/2024 1 1 Specialty Diagnoses / Procedures Referred By Contac t Referred To Contact [facility] Diagnoses Interstitial pulmonary disease (HCC) Procedures LUNG DIFFUSION CAPACITY (DLCO) DIFFUSING CAPACITY Mike Presley MD [address] [place] [address] Respiratory [place] [address] [place] [address] Referral ID Status Reason Start Date Expiration Date V isits Requested Visits Authorized [id number] Closed Auto-Generate d Referral 06/27/2023 07/26/2024 1 1 Reason Comments Radio Gen A21 Reason Comments Pre-Op Exam Specialty Diagnoses / Procedures Referred By Contac t Referred To Contact CT IMAGING Diagnoses Interstitial pulmonary disease (HCC) Procedures CT CHEST WO IVCON DIAGNOSTIC COMPUTED TOMOGRAPHY THORAX W/O CNTRST Mike Presley MD [address] [place] [id number] [place] [id number] Referral ID Status Reason Start Date Expiration Date V isits Requested Visits Authorized [id number] Closed Auto-Generate d Referral 06/27/2023 07/26/2024 1 [...] or prosecute any alcohol or drug abuse patient.[facility] the event this information is protected by the Federal Confidentiality of Alcohol and Drug Abuse Patient Records regulations: The Federal rules restrict any use of the information to criminally investigate or prosecute any alcohol or drug abuse patient.[facility] the event this information is protected by the Federal Confidentiality of Alcohol and Drug Abuse Patient Records regulations: The Federal rules restrict any use of the information to criminally investigate or prosecute any alcohol or drug abuse patient.[facility] the event this information is protected by the Federal Confidentiality of Alcohol and Drug Abuse Patient Records regulations: The Federal rules restrict any use of the information to criminally investigate or prosecute any alcohol or drug abuse patient.[facility] the event this information is protected by the Federal Confidentiality of Alcohol and Drug Abuse Patient Records regulations: The Federal rules restrict any use of the information to criminally investigate or prosecute any alcohol or drug abuse patient.[facility] the event this information is protected by the Federal Confidentiality of Alcohol and Drug Abuse Patient Records regulations: The Federal rules restrict any use of the information to criminally investigate or prosecute any alcohol or drug abuse patient.[facility] the event this information is protected by the Federal Confidentiality of Alcohol and Drug Abuse Patient Records regulations: The Federal rules restrict any use of the information to criminally investigate or prosecute any alcohol or drug abuse patient.[facility]In the event this information is protected by the Federal Confidentiality of Alcohol and Drug Abuse Patient Records regulations: The Federal rules restrict any use of the information to criminally investigate or prosecute any alcohol or drug abuse patient.[facility] the event this information is protected by the Federal Confidentiality of Alcohol and Drug Abuse Patient Records regulations: The Federal rules restrict any use of the information to criminally investigate or prosecute any alcohol or drug abuse patient.[facility] the event this information is protected by the Federal Confidentiality of Alcohol and Drug Abuse Patient Records regulations: The Federal rules restrict any use of the information to criminally investigate or prosecute any alcohol or drug abuse patient.[facility]In the event this information is protected by the Federal Confidentiality of Alcohol and Drug Abuse Patient Records regulations: The Federal rules restrict any use of the information to criminally investigate or prosecute any alcohol or drug abuse patient.[facility]In the event this information is protected by the Federal Confidentiality of Alcohol and Drug Abuse Patient Records regulations: The Federal rules restrict any use of the information to criminally investigate or prosecute any alcohol or drug abuse patient.[facility]In the event this information is protected by the Federal Confidentiality of Alcohol and Drug Abuse Patient Records regulations: The Federal rules restrict any use of the information to criminally investigate or prosecute any alcohol or drug abuse patient.[facility]In the event this information is protected by the Federal Confidentiality of Alcohol and Drug Abuse Patient Records regulations: The Federal rules restrict any use of the information to criminally investigate or prosecute any alcohol or drug abuse patient.[facility]In the event this information is protected by the Federal Confidentiality of Alcohol and Drug Abuse Patient Records regulations: The Federal rules restrict any use of the information to criminally investigate or prosecute any alcohol or drug abuse patient.[facility]In the event this information is protected by the Federal Confidentiality of Alcohol and Drug Abuse Patient Records regulations: The Federal rules restrict any use of the information to criminally investigate or prosecute any alcohol or drug abuse patient.[facility] HospitalIn the event this information is protected by the Federal Confidentiality of Alcohol and Drug Abuse Patient Records regulations: The Federal rules restrict any use of the information to criminally investigate or prosecute any alcohol or drug abuse patient.[facility]In the event this information is protected by the Federal Confidentiality of Alcohol and Drug Abuse Patient Records regulations: The Federal rules restrict any use of the information to criminally investigate or prosecute any alcohol or drug abuse patient.[facility]In the event this information is protected by the Federal Confidentiality of Alcohol and Drug Abuse Patient Records regulations: The Federal rules restrict any use of the information to criminally investigate or prosecute any alcohol or drug abuse patient.[facility] HospitalIn the event this information is protected by the Federal Confidentiality of Alcohol and Drug Abuse Patient Records regulations: The Federal rules restrict any use of the information to criminally investigate or prosecute any alcohol or drug abuse patient.[facility] HospitalIn the event this information is protected by the Federal Confidentiality of Alcohol and Drug Abuse Patient Records regulations: The Federal rules restrict any use of the information to criminally investigate or prosecute any alcohol or drug abuse patient.[facility]In the event this information is protected by the Federal Confidentiality of Alcohol and Drug Abuse Patient Records regulations: The Federal rules restrict any use of the information to criminally investigate or prosecute any alcohol or drug abuse patient.[facility]In the event this information is protected by the Federal Confidentiality of Alcohol and Drug Abuse Patient Records regulations: The Federal rules restrict any use of the information to criminally investigate or prosecute any alcohol or drug abuse patient.[facility] HospitalIn the event this information is protected by the Federal Confidentiality of Alcohol and Drug Abuse Patient Records regulations: The Federal rules restrict any use of the information to criminally investigate or prosecute any alcohol or drug abuse patient.[facility] Care Teams (unrecognized sec tion and content) Compliance Examiner Relationship Specialty Start Date End Date Roland Serrano DO PCP - General 09/21/07 Kizzy Galloway RN Specialty Head Refrigeration Engineer Radiation Oncology 06/12/21 Compliance Examiner Relationship Specialty Start Date End Date Roland Serrano DO [facility] 09/21/07 [place] Galloawy RN [id number] [place] [address] Specialty Head Refrigeration Engineer Radiation Oncology 06/12/21 Compliance Examiner Relationship Specialty Start Date End Date Roland Serrano DO [facility] 09/21/07 [place] [address] [place] [address] Specialty Head Refrigeration Engineer Radiation Oncology 06/12/21 Compliance Examiner Relationship Specialty Start Date End Date Roland Serrano DO [facility] 09/21/07 [place] [address] [place] [address] Specialty Head Refrigeration Engineer Radiation Oncology 06/12/21 Compliance Examiner Relationship Specialty Start Date End Date Roland Serrano DO [facility] General 09/21/07 [place] [address] [place] [address] Specialty Head Refrigeration Engineer Radiation Oncology 06/12/21 Compliance Examiner Relationship Specialty Start Date End Date Roland Serrano DO PCP - General 09/21/07 [place] [address] [place] [address] Specialty Head Refrigeration Engineer Radiation Oncology 06/12/21 Compliance Examiner Relationship Specialty Start Date End Date Roland Serrano DO PCP - General 09/21/07 Kizzy Galloway RN [address] [place] [address] Specialty Head Refrigeration Engineer Radiation Oncology 06/12/21 Compliance Examiner Relationship Specialty Start Date End Date Roland Serrano DO PCP - General 09/21/07 Kizzy Galloway RN [address] [place] [address] Specialty Head Refrigeration Engineer Radiation Oncology 06/12/21 Compliance Examiner Relationship Specialty Start Date End Date Roland Serrano DO PCP - General 09/21/07 Kizzy Galloway RN [address] [place] [address] Specialty Head Refrigeration Engineer Radiation Oncology 06/12/21 Compliance Examiner Relationship Specialty Start Date End Date Roland Serrano DO PCP - General 09/21/07 [place] [address] [place] [address] Specialty Head Refrigeration Engineer Radiation Oncology 06/12/21 Compliance Examiner Relationship Specialty Start Date End Date Roland Serrano DO PCP - General 09/21/07 [place] [address] [place] [address] Specialty Head Refrigeration Engineer Radiation Oncology 06/12/21 Compliance Examiner Relationship Specialty Start Date End Date Roland Serrano DO PCP - General 09/21/07 Kizzy G[place] [id number] [place] [address] Specialty Head Refrigeration Engineer Radiation Oncology 06/12/21 Compliance Examiner Relationship Specialty Start Date End Date Roland Serrano DO PCP - General 09/21/07 Kizzy Galloway RN [address] [place] [address] Specialty Head Refrigeration Engineer Radiation Oncology 06/12/21 Compliance Examiner Relationship Specialty Start Date End Date Roland Serrano DO PCP - General 09/21/07 Kizzy Galloway RN [address] [place] [address] Specialty Head Refrigeration Engineer Radiation Oncology 06/12/21 Compliance Examiner Relationship Specialty Start Date End Date Rloand Serrano DO PCP - General 09/21/07 Kizzy Galloway RN [address] [place] [address] Specialty Head Refrigeration Engineer Radiation Oncology 06/12/21 Compliance Examiner Relationship Specialty Start Date End Date Roland Serrano DO PCP - General 09/21/07 Kizzy Galloway RN [address] [place] [address] Specialty Head Refrigeration Engineer Radiation Oncology 06/12/21 Compliance Examiner Relationship Specialty Start Date End Date Roland Serrano DO PCP - General 09/21/07 [place] [address] [place] [address] Specialty Head Refrigeration Engineer Radiation Oncology 06/12/21 Compliance Examiner Relationship Specialty Start Date End Date Roland Serrano DO PCP - General 09/21/07 [place] [address] [place] [address] Specialty Head Refrigeration Engineer Radiation Oncology 06/12/21 Compliance Examiner Relationship Specialty Start Date End Date Roland Serrano DO PCP - General 09/21/07 [place] [address] [place] [address] Specialty Head Refrigeration Engineer Radiation Oncology 06/12/21 FOR RECORDS PERTAINING TO [...] BE BASED ON THE PRIMARY CLINICAL RECORDS. [facility] [employer] [facility]. provides no warranty or guarantee of the accuracy or completeness of information in this document.
== END 2024-03-19 08:00 | disposition home or self-care (01) ==
LOC: NM 07:59
PROVIDERS: PCP Internal Medicine; Visit Provider Orthopaedic Surgery
DX: M25.551 Pain in right hip (principal); Z96.641 Presence of right artificial hip joint
CPT/HCPCS: 36415; 78315; 85025; 85652; 86140; A9503

== ENCOUNTER 2024-03-19 08:36 | Outpatient (OUT) | payer BC, SELFPAY ==
--- OUTSIDE RECORDS SUMMARY | 2024-03-19 08:47 | XMS_ITS | CCD ---
Author Organization [facility] Care Team Providers Care Urban Design Consultant Name Role Phone Roland Serrano DO Primary [...] Unavailable MAGGIE, DR YOUSSEF Primary Care Unavailable MGAGIE, DR YOUSSEF Admitting Unavailable MAGGIE, DR YOUSSEF [...] CISNEROS JAY, MIKE Referring Unava ilable BALL, ORLAND E Primary Care Unavailable JAYANT, SOUTH Philippe [...] Care Unavailable SASHEIDI VILLATORO Attending Unavailab LEIGH Whitehaed Attending Unavailable JR. GATICA GEORGE C Attending Unavaila chandni GATICA JR., GEORGE C Referring Unavaila chandni GATICA JR., MARY Chase Attending Unavaila ble Allergies Allergy Classification Reported Allergen(s) Allergy Type Date of Onset Reaction(s) Facility (6 sources) patient allergy list reviewed by nurse or physicia Propensity to adverse reactions 8 Comment:Done [employer] Other (6 sources) Allergies Reconciled Propensity to adverse reactions Unknown [employer] Other Medications Current Medications Medication Drug Class(es) Dates Sig (Normalized) Sig (Original) acetaminophen 325 mg / HYDROcodone bitartrate 5 mg oral tablet (8 sources) Opioid Agonist take 1-2 tablets by mouth every six hours as needed HYDROcodone-Aceta minophen 5-325 MG 1-2 tablet as needed Oral every 6 hrs for 7 days Active [id number] actuat albuterol 0.09 mg/actuat metered dose [...] May, Active take 1 capsule by mo [facility] four times daily before mealtime dicyclomine (BENTYL) 10 MG capsule Take 10 mg by mouth 4 times daily (before meals and nightly) 0 Active Comment on above: Take 1 capsule by mo [facility] before meals and at bedtime. As [...] one(1) tablet d aily. Take by mouth. TIYI5-UZZ-DIV-FISH OIL-L.CASEI ORAL (20 sources) IORG0-KDB-ZDV-FI SH OIL-L.CASEI ORAL Take by mouth once daily. 0 Active Comment on above: Take by mouth once d aily. polyethylene glycol 3350 427191 mg / potassium chloride 2970 mg / sodium bicarbonate 6740 mg / sodium chloride 5860 mg / sodium sulfate 96076 mg powder for oral solution (1 source) [...] CNOV Office Visit (CORSMN ) ISABEL WADDELL ([id number]) 1960 F Date Time Provider Department 09/29/23 [...] Medical Decision Making: Assessment AND Diagnosis: Isabel Wadedll is a 63 year old female with [...] mg by mouth daily at bedtime. - EYRN0-EXR-CMX-FISH OIL-L.CASEI ORAL Take by mouth once daily. [...] [D64.89] 09/02 (more content not included)... Normal [facility] ANES POSTPROC EVALon 09-02-2 023 ANES POSTPROC EVAL HNO ID: [id number] Author: Kobe Garcia MD Service: ? Author Type: Anesthesiologist Type: Anesthesia Postprocedure Evaluation Filed: 09/02/2023 10:38 AM Note Text: POST ANESTHESIA EVALUATION NOTE : 1960 Procedure Summary Date: 09/02/23 Room / Location: [address] Anesthesia Start: 745 Anesthesia Stop: 925 [...] September 02, 2023 TIME: 10:37 AM CSN: [id number] Normal [facility] ANES PRE-OPon 09-02-2023 ANES PRE-OP HNO ID: [id number] Author: Kobe Garcia MD Service: ? Author Type: Anesthesiologist Type: Anesthesia Preprocedure Evaluation Filed: 09/02/2023 8:30 AM Note Text: ANESTHESIOLOGY DAY OF SURGERY NOTE : 1960 Procedure Information Date/Time: 09/02/23729 Procedures: EXAM UNDER ANESTHESIA RECTAL (Anus) SIGMOIDOSCOPY FLEXIBLE (Colon Sigmoid) ANOSCOPY W/ CONTROL OF BLEEDING- Formalin treatment (Anus) Location: [place] [address] [facility] Surgeons: South Saba DO [...] and consent discussed: yes. Patient / Responsible Democrat agrees to proceed: yes Patient / Surrogate [...] 1,000 mg by mouth once daily. - KNOF5-GFP-AQW-FISH OIL-L.CASEI ORAL Take by mouth once daily. [...] on 06/27/2023 (more content not included)... Normal [facility] ANES PREOPon 09-02-2023 ANES PREOP HNO ID: [id number] Author: Kobe Garcia MD Service: Anesthesiology Author Type: Anesthesiologist Type: Anesthesia PreOp Filed: 09/02/2023 7:05 AM Note Text: Healthy except for FAP. Appropriately NPO, denies reflux, no history of anesthesia problems. Reviewed in fathers presence. MP1, no airway concerns, ASA2, Plan for GA with LMA. Has braces, tight , no loose teeth. Normal [facility] BRIEF OP NOTon 09-02-2023 BRIEF OP NOT HNO ID: [id number] Author: Milagro Sanchez MD Service: Colorectal Author Type: Physician Type: Brief Op Note Filed: 09/02/2023 8:57 AM Note Text: BRIEF OPERATIVE NOTE - COLORECTAL SURGERY Log ID: [id number] Surgery/Procedure Date: 09/02/2023 Incision/Procedure Start Time: 8:01 AM Incision Close/Procedure End Time: 8:51 AM Surgeon(s) and Cutlery Grinder(s): Surgeon(s) and Role: * South Saba DO - Primary * iMlagro Sanchez MD - Assisting No Additional Staff [...] September 02, 2023 TIME: 8:56 AM Normal [facility] CNDSon 09-02-2023 CNDS HNO ID: [id number] Author: Ricardo White PA-C Service: Colorectal Author Type: Physician Cutlery Grinder Type: Discharge Summary Filed: 09/02/2023 2:06 PM [...] [facility] [address] call Dr. Saba's office at [phone] to make an appointment. Transitions of Care [...] capsule Commonly (more content not included)... Normal [facility] Hematocrit Auto (Bld) [Volum e fraction]on 09-02-2023 Hematocrit (Bld) [Volume fraction] 27.4 % Low 36.0-46.0 [facility] Comment on above: Order Comment: Speci men Type: BLOOD SPECIMEN Ordering Facility: [facility] Address: [address] [place] [phone] Performed By: #### 5 0190-8, 2276-4 #### [facility] CLIA [id number] [address] [place] [address] [place] Hgb Bld-mCncon 09-02-2023 Hemoglobin (Bld) [Mass/Vol] 7.5 g/dL Low 11.5-15.5 [facility] Comment on above: Order Comment: Speci men Type: BLOOD SPECIMEN Ordering Facility: [facility] Address: [address] [place] [address], [place] [address] Performed By: #### 5 0190-8, 2276-4 #### [facility] CLIA [id number] [address] [facility] [place] [id number] [place] OPERATIVE NOon 09-02-2023 OPERATIVE NO HNO ID: [id number] Author: South Saba DO Service: Colorectal Author Type: Physician Type: Operative Report Filed: 09/10/2023 7:14 AM Note Text: OPERATIVE REPORT PATIENT NAME: Isabel Waddell LOG ID: [id number] SURGERY DATE: 09/02/2023 INCISION/PROCEDURE START TIME: 8:01 AM INCISION CLOSE/PROCEDURE END TIME: 8:51 AM PREOPERATIVE DIAGNOSIS: Radiation proctitis, anemia, history of endometrial adenocarcinoma POSTOPERATIVE DIAGNOSIS: Radiation proctitis, anemia, history of endometrial adenocarcinoma OPERATION PERFORMED: Flexible sigmoidoscopy, exam under anesthesia, topical application of formalin to the rectum for treatment of radiation proctitis SURGEON: South Saba DO TELEGRAPH OPERATOR: Milagro Sanchez MD. no qualified residents or [...] Saba, DO, FACS, FASCRS Colorectal Surgery Normal [facility] TYPE + SCREENon 09-02-2023 ABO O Normal [facility] Comment on above: Order Comment: Speci men Type: BLOOD SPECIMEN Ordering Facility: [facility] Address: [address] [place] [address] Performed By: #### 5 0190-8, 2276-4 #### [facility] CLIA [id number] [address] [place] HISTORICAL AB SCR STATUS Negative Normal [facility] Comment on above: Order Comment: Speci men Type: BLOOD SPECIMEN Ordering Facility: [facility] Address: [address] [place] [address] Performed By: #### 5 0190-8, 2275-4 #### [facility] CLIA [id number] [address] [place] [address] [place] Rh Nom (Bld) Positive Normal [facility] Comment on above: Order Comment: Speci men Type: BLOOD SPECIMEN Ordering Facility: [facility] Address: [address] [place] [address] Performed By: #### 5 0190-8, 2276-02 #### [facility] CLIA [id number] [address] STATES OF [facility] TYPE AND SCREEN EXPIRATION 09/05/2023 23:59 Normal [facility] Comment on above: Order Comment: Speci men Type: BLOOD SPECIMEN Ordering Facility: [facility] Address: [address] [place] [address] Performed By: #### 5 0190-8, 2276-02 #### [facility] CLIA [id number] [address] [place] [address] [place] CBC W Auto Differential pane l (Bld)on 08-29-2023 Basophils (Bld) [#/Vol] 10*3/uL Normal <0.11 [facility] Comment on above: Order Comment: Speci men Type: BLOOD SPECIMENOrdering Facility: [facility] Address: [address] [place] [address] Performed By: #### 5 7021-8 ####[facility] [id number] [address] [place] Basophils/100 WBC (Bld) 0.7 % Normal [facility] Comment on above: Order Comment: Speci men Type: BLOOD SPECIMENOrdering Facility: [facility] Address: [address] [place] [address] Performed By: #### 5 7021-8 ####[facility] [id number] [place] [address] [place] Differential cell count method Nom (Bld) Auto Normal [facility] Comment on above: Order Comment: Speci men Type: BLOOD SPECIMENOrdering Facility: [facility] Address: [address] [place] [address] Performed By: #### 5 7021-8 ####[facility] [id number] [place] [address] [place] Eosinophils (Bld) [#/Vol] 0.18 10*3/uL Normal <0.46 [facility] Comment on above: Order Comment: Speci men Type: BLOOD SPECIMENOrdering Facility: [facility] Address: [address] [place] [address] Performed By: #### 5 7021-8 ####[facility] [id number] [place] [address] [place] Eosinophils/100 WBC (Bld) 5.9 % Normal [facility] Comment on above: Order Comment: Speci men Type: BLOOD SPECIMENOrdering Facility: [facility] Address: [address] [place] [address] Performed By: #### 5 7021-8 ####[facility] [id number] [place] [address] [place] Erythrocyte distribution width (RBC) [Ratio] 22.0 % High 11.5-15.0 [facility] Comment on above: Order Comment: Speci men Type: BLOOD SPECIMENOrdering Facility: [facility] Address: [address] [place] [address] Performed By: #### 5 7021-8 ####[facility] [id number] [address] [id number] [address] [place] Hematocrit (Bld) [Volume fraction] 26.0 % Low 36.0-46.0 [facility] Comment on above: Order Comment: Speci men Type: BLOOD SPECIMENOrdering Facility: [facility] Address: [address] [place] [address] Performed By: #### 5 7021-8 ####[facility] [id number] [place] [address] [place] Hemoglobin (Bld) [Mass/Vol] 7.0 g/dL Low 11.5-15.5 [facility] Comment on above: Order Comment: Speci men Type: BLOOD SPECIMENOrdering Facility: [facility] Address: [address] [place] [address] Performed By: #### 5 7021-8 ####[facility] [id number] [place] [address] [place] Immature granulocytes (Bld) [#/Vol] 10*3/uL Normal <0.10 [facility] Comment on above: Order Comment: Speci men Type: BLOOD SPECIMENOrdering Facility: [facility] Address: [address] [place] [address] Performed By: #### 5 7021-8 ####[facility] [id number] [place] [address] [place] Immature granulocytes/100 WBC (Bld) 0.0 % Normal [facility] Comment on above: Order Comment: Speci men Type: BLOOD SPECIMENOrdering Facility: [facility] Address: [address] [place] [address] Performed By: #### 5 7021-8 ####[facility] [id number] [place] [address] [place] Lymphocytes (Bld) [#/Vol] 1.20 10*3/uL Normal 1.00-4.00 [facility] Comment on above: Order Comment: Speci men Type: BLOOD SPECIMENOrdering Facility: [facility] Address: [address] [place] [address] Performed By: #### 5 7021-8 ####[facility] [id number] [place] [address] [place] Lymphocytes/100 WBC (Bld) 39.1 % Normal [facility] Comment on above: Order Comment: Speci men Type: BLOOD SPECIMENOrdering Facility: [facility] Address: [address] [place] [address] Performed By: #### 5 7021-8 ####[facility] [id number] [place] [address] [place] MCH (RBC) [Entitic mass] 17.9 pg Low 26.0-34.0 [facility] Comment on above: Order Comment: Speci men Type: BLOOD SPECIMENOrdering Facility: [facility] Address: [address] [place] [address] Performed By: #### 5 7021-8 ####[facility] [id number] [place] [address] [place] MCHC (RBC) [Mass/Vol] 26.9 g/dL Low 30.5-36.0 [facility] Comment on above: Order Comment: Speci men Type: BLOOD SPECIMENOrdering Facility: [facility] Address: [address] [place] [address] Performed By: #### 5 7021-8 ####[facility] [id number] [place] [address] [place] MCV (RBC) [Entitic vol] 66.3 fL Low 80.0-100.0 [facility] Comment on above: Order Comment: Speci men Type: BLOOD SPECIMENOrdering Facility: [facility] Address: [address] [place] [address] Performed By: #### 5 7021-8 ####[facility] [id number] [place] [address] [place] Monocytes (Bld) [#/Vol] 0.40 10*3/uL Normal <0.87 [facility] Comment on above: Order Comment: Speci men Type: BLOOD SPECIMENOrdering Facility: [facility] Address: [address] [place] [address] Performed By: #### 5 7021-8 ####[facility] [id number] [place] [address] [place] Monocytes/100 WBC (Bld) 13.0 % Normal [facility] Comment on above: Order Comment: Speci men Type: BLOOD SPECIMENOrdering Facility: [facility] Address: [address] [place] [address] Performed By: #### 5 7021-8 ####[facility] [id number] [place] [address] [place] Neutrophils (Bld) [#/Vol] 1.27 10*3/uL Low 1.45-7.50 [facility] Comment on above: Order Comment: Speci men Type: BLOOD SPECIMENOrdering Facility: [facility] Address: [address] [place] [address] Performed By: #### 5 7021-8 ####[facility] [id number] [place] [address] [place] Neutrophils/100 WBC (Bld) 41.3 % Normal [facility] Comment on above: Order Comment: Speci men Type: BLOOD SPECIMENOrdering Facility: [facility] Address: [address] [place] [address] Performed By: #### 5 7021-8 ####[facility] [id number] [place] [address] [place] Nucleated RBC (Bld) [#/Vol] 10*3/uL Normal <0.01 [facility] Comment on above: Order Comment: Speci men Type: BLOOD SPECIMENOrdering Facility: [facility] Address: [address] [place] [address] Performed By: #### 5 7021-8 ####[facility] [id number] [place] [address] [place] Nucleated RBC/100 WBC (Bld) [Ratio] 0.0 /100 WBC Normal [facility] Comment on above: Order Comment: Speci men Type: BLOOD SPECIMENOrdering Facility: [facility] Address: [address] [place] [address] Performed By: #### 5 7021-8 ####[facility] [id number] [place] [address] [place] Platelet mean volume (Bld) [Entitic vol] 9.6 fL Normal 9.0-12.7 [facility] Comment on above: Order Comment: Speci men Type: BLOOD SPECIMENOrdering Facility: [facility] Address: [address] [place] [address] Performed By: #### 5 7021-8 ####[facility] [id number] [place] [address] [place] Platelets (Bld) [#/Vol] 266 10*3/uL Normal 150-400 [facility] Comment on above: Order Comment: Speci men Type: BLOOD SPECIMENOrdering Facility: [facility] Address: [address] [place] [address] Performed By: #### 5 7021-8 ####[facility] [id number] [place] [address] [place] RBC (Bld) [#/Vol] 3.92 10*6/uL Normal 3.90-5.20 [facility] Comment on above: Order Comment: Speci men Type: BLOOD SPECIMENOrdering Facility: [facility] Address: [address] [place] [address] Performed By: #### 5 7021-8 ####[facility] [id number] [place] [id number] [place] WBC (Bld) [#/Vol] 3.07 10*3/uL Low 3.70-11.00 [facility] Comment on above: Order Comment: Speci men Type: BLOOD SPECIMENOrdering Facility: [facility] Address: [address] [place] [address] Performed By: #### 5 7021-8 ####[facility] [id number] [facility] [place] [address] [place] CNOVon 08-29-2023 CNOV Office Visit (CORSMN ) ISABEL WADDELL ([id number]) 1960 F Date Time Provider Department 08/29/23 [...] team about CBC once drawn. Elder Galan, BETTY.[facility] Pelvic Floor Colorectal Surgery Risk of morbidity, mortality and/or complications of treatment plan: high Referring Provider: SOUTH SABA [[id number]] Allergies As of Allen (more content not included)... Normal [facility] CNOV Office Visit (PMNA11 ) ISABEL WADDELL ([id number]) 1960 F Date Time Provider Department 08/29/23 10:00 AM HEIDI MENARD PMNA11 During your visit today, we recorded the following information about you: Temperature Pulse Respiration Blood pressure 98 degrees 82/minute 16/minute 157/77 Weight 66.7 kg Heidi Menard MD 08/29/2023 1:08 PM Signed Ms. Waddell is a 63 year old female who presents to the [facility] [place]. 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 Normal [facility] metabolic 2000 panelon 08-29-2023 Albumin [Mass/Vol] 3.9 g/dL Normal 3.9-4.9 [facility] Comment on above: Order Comment: Speci men Type: BLOOD SPECIMEN Ordering Facility: [facility] Address: [address] [place], [place] [address] Performed By: #### 5 0190-8, 2275-4 #### [facility] CLIA [id number] [address] [place] [address] [place] ALP [Catalytic activity/Vol] 164 U/L High 34-123 [facility] Comment on above: Order Comment: Speci men Type: BLOOD SPECIMEN Ordering Facility: [facility] Address: [address] [place], [place] [address] Performed By: #### 5 0190-8, 2275- #### [facility] CLIA [id number] [address] [place] [address] [place] ALT [Catalytic activity/Vol] 45 U/L High 7-38 [facility] Comment on above: Order Comment: Speci men Type: BLOOD SPECIMEN Ordering Facility: [facility] Address: [address] [place], [place] [address] Performed By: #### 5 0190-8, 2276-02 #### [facility] CLIA [id number] [address] [place] [address] [place] Anion gap [Moles/Vol] 10 mmol/L Normal 9-18 [facility] Comment on above: Order Comment: Speci men Type: BLOOD SPECIMEN Ordering Facility: [facility] Address: [address] [place], [place] [address] Performed By: #### 5 0190-8, 2275- #### [facility] CLIA [id number] [address] [place] [address] [place] AST [Catalytic activity/Vol] 48 U/L High 13-35 [facility] Comment on above: Order Comment: Speci men Type: BLOOD SPECIMEN Ordering Facility: [facility] Address: [address] Performed By: #### 5 0190-8, 2275-4 #### [facility] CLIA [id number] [address] [place] [address] [place] Bilirubin [Mass/Vol] 0.3 mg/dL Normal 0.2-1.3 [facility] Comment on above: Order Comment: Speci men Type: BLOOD SPECIMEN Ordering Facility: [facility] Address: [address] Performed By: #### 5 0190-8, 2275- #### [facility] CLIA [id number] [address] [place] [address] [place] Calcium [Mass/Vol] 9.5 mg/dL Normal 8.5-10.2 [facility] Comment on above: Order Comment: Speci men Type: BLOOD SPECIMEN Ordering Facility: [facility] Address: [address] Performed By: #### 5 0190-8, 2275- #### [facility] CLIA [id number] [address] [place] [address] [place] Chloride [Moles/Vol] 107 mmol/L High 97-105 [facility] Comment on above: Order Comment: Speci men Type: BLOOD SPECIMEN Ordering Facility: [facility] Address: [address] Performed By: #### 5 0190-8, 2275- #### [facility] CLIA [id number] [address] [place] [address] [place] CO2 [Moles/Vol] 24 mmol/L Normal 22-30 [facility] Comment on above: Order Comment: Speci men Type: BLOOD SPECIMEN Ordering Facility: [facility] Address: [address] Performed By: #### 5 0190-8, 2276-02 #### [facility] CLIA [id number] [address] [place] [address] [place] Creatinine [Mass/Vol] 0.61 mg/dL Normal 0.58-0.96 [facility] Comment on above: Order Comment: Adonis mayo Type: BLOOD SPECIMEN Ordering Facility: [facility] Address: [address] [place] [address] Performed By: #### 5 0190-8, 2276-02 #### [facility] CLIA [id number] [address] [place] [address] [place] Creatinine and Glomerular filtration rate.predicted panel (S/P/Bld) 101 mL/min/1.73m??? Normal >=60 [facility] Comment on above: Order Comment: Adonis mayo Type: BLOOD SPECIMEN Ordering Facility: [facility] Address: [address] [place] [address] Result Comment: Kae mated Glomerular Filtration Rate [...] Performed By: #### 5 0190-8, 2276-02 #### [facility] CLIA [id number] [facility] [place] [address] [place] Glucose [Mass/Vol] 94 mg/dL Normal 74-99 [facility] Comment on above: Order Comment: Adonis mayo Type: BLOOD SPECIMEN Ordering Facility: [facility] Address: [address] [place] [address] Result Comment: The [place] Diabetes Association (ADA) provides guidance for cutoff [...] Standards of Medical Care in Diabetes 2016, [place] Diabetes Association. Diabetes Care. 2016.39(Suppl 1). Performed By: #### 5 0190-8, 2275-4 #### [facility] CLIA [id number] [address] [place] [address] [place] Potassium [Moles/Vol] 4.5 mmol/L Normal 3.7-5.1 [facility] Comment on above: Order Comment: Speci men Type: BLOOD SPECIMEN Ordering Facility: [facility] Address: [address] [place] [address] Performed By: #### 5 0190-8, 2275-4 #### [facility] CLIA [id number] [address] [place] [address] [place] Protein [Mass/Vol] 6.4 g/dL Normal 6.3-8.0 [facility] Comment on above: Order Comment: Speci men Type: BLOOD SPECIMEN Ordering Facility: [facility] Address: [address] [place] [address] Performed By: #### 5 0190-8, 2275- #### [facility] CLIA [id number] [facility] [place] [address] [place] Sodium [Moles/Vol] 141 mmol/L Normal 136-144 [facility] Comment on above: Order Comment: Speci men Type: BLOOD SPECIMEN Ordering Facility: [facility] Address: [address] [place] [address] Performed By: #### 5 0190-8, 2275- #### [facility] CLIA [id number] [address] [id number] [place] Urea nitrogen [Mass/Vol] 13 mg/dL Normal 7-21 [facility] Comment on above: Order Comment: Speci men Type: BLOOD SPECIMEN Ordering Facility: [facility] Address: [address] [place] [address] Performed By: #### 5 0190-8, 2276-4 #### [facility] CLIA [id number] [address] [facility] DESK [id number] [place] [address] ECG COMPLETEon 08-29-2023 ECG COMPLETE Ventricular Rate : 7 6 BPM Atrial Rate : 76 BPM P-R Interval : 194 ms QRS Duration : 82 ms Q-T Interval : 392 ms QTC Calculation(Bazett) : 441 ms Calculated P [place] : 22 degrees Calculated R [place] : 58 degrees Calculated T [place] : 43 degrees NORMAL SINUS RHYTHM POSSIBLE LEFT ATRIAL ENLARGEMENT LEFT VENTRICULAR HYPERTROPHY ABNORMAL ECG Confirmed by MING MITCHELL MD ([id number]) on 09/02/2023 9:46:08 PM NAME : ISABEL WADDELL PID : [id number] : 1960 Gender : Female Race : ORD : [id number] Procedure Date : Aug 29 2023 13:01:41 Edit Date : Sep 02 2023 21:46:10 Diagnosis: NORMAL SINUS RHYTHM POSSIBLE LEFT ATRIAL ENLARGEMENT LEFT VENTRICULAR HYPERTROPHY ABNORMAL ECG Confirmed by MING MITCHELL MD ([id number]) on 09/02/2023 9:46:08 PM Test Reason : Location : 119 : A17 A17 Overread By : MING MITCHELL MD Edited By : MING MITCHELL MD Referred By : [place] Acquired by : YASMIN AVILA [facility] ECHOon 08-29-2023 Echocardiography Echocardiography Report: Transthoracic Echo [facility] GUNNAR-2 Date of service: 08/29/2023 1:42:07 PM IMPROVEMENT INTERN Ordering physician: MIKE THOMPSON Indication: Shortness of breath Technologist: Ashlee Mera [facility] Interpreting physician: Mikki Etienne MD PATIENT: [...] * * Final * * * [facility] Image : [id number] Normal [facility] HISTORY PHYSICALon HISTORY PHYSICAL HNO ID: [id number] Author: Elder Galan APRN.MONSERRAT Service: ? Author [...] team about CBC once drawn. Elder Galan APRN.DYE LINE OPERATOR Pelvic Floor Colorectal Surgery Risk of morbidity, mortality and/or complications of treatment plan: high Normal [facility] TYPE + SCREENon 08-29-2023 ABO group Nom (Bld) O [facility] Blood group antibody screen Ql Negative [facility] HIstorical Ab Scr Status Negative [facility] Rh Nom (Bld) Positive [facility] Type and Screen Expiration 09/01/2023 23:59 [facility] ABO O Normal [facility] Comment on above: Order Comment: Speci men Type: BLOOD SPECIMEN Ordering Facility: [facility] Address: [address] Performed By: #### 5 0190-8, 2275-4 #### [facility] CLIA [id number] [address] [place] [address] [place] [facility] HISTORICAL AB SCR STATUS Negative Normal [facility] Comment on above: Order Comment: Speci men Type: BLOOD SPECIMEN Ordering Facility: [facility] Address: [address] [place], [place] [address] Performed By: #### 5 0190-8, 2275-4 #### [facility] CLIA [id number] [address] [place] [address] [place] Rh Nom (Bld) Positive Normal [facility] Comment on above: Order Comment: Speci men Type: BLOOD SPECIMEN Ordering Facility: [facility] Address: [address] [place], [place] [address] Performed By: #### 5 0190-8, 2275-4 #### [facility] CLIA [id number] [address] [place] [address] [place] TYPE AND SCREEN EXPIRATION 09/01/2023 23:59 Normal [facility] Comment on above: Order Comment: Speci men Type: BLOOD SPECIMEN Ordering Facility: [facility] Address: [address] [place], [place] [address] Performed By: #### 5 0190-8, 2275-4 #### [facility] CLIA [id number] [address] [place] [address] [place] XR CHEST 2V [...] of the thoracic spine. IMPRESSION: See Result. Aqueduct And Reservoir Keeper: PSCB Transcribe Date/Time: Aug 29 2023 9:55A Dictated by : KRYSTIAN MULTANI MD This examination was interpreted and the report reviewed and electronically signed by: KRYSTIAN MULTANI MD on Aug 29 2023 9:57AM EST [id number] [facility] CT CHEST WO IVCONon 08-22-[address] CHEST WO IVCON * * *Final Report* * * DATE OF EXAM: Aug 22 2023 8:49AM [facility] 0541 - CT CHEST WO IVCON [...] wall is unremarkable. Upper abdomen: Prior cholecystectomy. Salt Washer (topogram) images: No additional findings. IMPRESSION: 1. No convincing findings of interstitial lung disease. There is excessive dynamic collapse of mainstem bronchi. 2. Unchanged scattered calcified granulomas. No suspicious lung nodules. 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 ISABEL WADDELL ([id number]) 1960 F Date Time Provider Department 07/22/23 [place] During your visit today, we recorded the following information about you: [facility]/2023 3:18 PM Signed Isabel Waddell [...] mg by mouth daily at bedtime. - XKMM3-RCU-LCT-FISH OIL-L.CASEI ORAL Take by mouth once daily. [...] Status:Closed by GABY NICHOLS RN on 07/22/23 [facility] Telephone ([facility]) ISABEL WADDELL ([id number]) 1960 F Date Time Provider Department 07/22/23 [place] During your visit today, we recorded the following information about you: Enid Baker 07/22/2023 2:49 PM Signed [phone] Patient calling to reschedule her EUA. Allergies [...] mg by mouth daily at bedtime. - KFRF9-MCT-HZV-FISH OIL-L.CASEI ORAL Take by mouth once daily. [...] Status:Closed by ENID BAKER on 07/22/23 Normal [facility] Comprehensive metabolic 2000 panelon 07-05-2023 Albumin [Mass/Vol] 4.0 g/dL 3.9 - 4.9 g/dL [facility] ALP [Catalytic activity/Vol] 161 U/L High 34 - 123 U/L [facility] ALT [Catalytic activity/Vol] 47 U/L High 7 - 38 U/L [facility] Anion gap [Moles/Vol] 11 mmol/L 9 - 18 mmol/L [facility] AST [Catalytic activity/Vol] 41 U/L High 13 - 35 U/L [facility] Bilirubin [Mass/Vol] 0.3 mg/dL 0.2 - 1 .3 mg/dL [facility] Calcium [Mass/Vol] 9.5 mg/dL 8.5 - 10. 2 mg/dL [facility] Chloride [Moles/Vol] 105 mmol/L 97 - 10 5 mmol/L [facility] CO2 [Moles/Vol] 26 mmol/L 22 - 30 mmol/L [facility] Creatinine [Mass/Vol] 0.74 mg/dL 0.58 - 0.96 mg/dL [facility] Estimated Glomerular Filtration Rate 91 mL/min/1.73m >=60 mL/min/1.73m [facility] Glucose [Mass/Vol] 104 mg/dL High 74 - 99 mg/dL [facility] Potassium [Moles/Vol] 4.5 mmol/L 3.7 - 5.1 mmol/L [facility] Protein [Mass/Vol] 6.3 g/dL 6.3 - 8.0 g/dL [facility] Sodium [Moles/Vol] 142 mmol/L 136 - 144 mmol/L [facility] Urea nitrogen [Mass/Vol] 16 mg/dL 7 - 21 mg/dL [facility] CBC W Auto Differential pane l (Bld)on 07-04-2023 Basophils (Bld) [#/Vol] 0.03 10*3/uL Normal <0.11 [facility] Comment on above: Order Comment: Speci men Type: BLOOD SPECIMEN Ordering Facility: [facility] Address: [address] Performed By: #### 5 0190-8, 2276-02 #### [facility] CLIA [id number] [address] [place] Basophils/100 WBC (Bld) 0.9 % Normal [facility] Comment on above: Order Comment: Speci men Type: BLOOD SPECIMEN Ordering Facility: [facility] Address: [address] [place] [place] [id number] Performed By: #### 5 0190-8, 2275- #### [facility] CLIA [id number] [address] [place] [address] [place] Differential cell count method Nom (Bld) Auto Normal [facility] Comment on above: Order Comment: Speci men Type: BLOOD SPECIMEN Ordering Facility: [facility] Address: [address] [place] [address] Performed By: #### 5 0190-8, 6-4 #### [facility] CLIA [id number] [address] [place] [address] [place] Eosinophils (Bld) [#/Vol] 0.16 10*3/uL Normal <0.46 [facility] Comment on above: Order Comment: Speci men Type: BLOOD SPECIMEN Ordering Facility: [facility] Address: [address] [place] [address] Performed By: #### 5 0190-8, 2275-4 #### [facility] CLIA [id number] [address] [place] [address] [place] Eosinophils/100 WBC (Bld) 4.9 % Normal [facility] Comment on above: Order Comment: Speci men Type: BLOOD SPECIMEN Ordering Facility: [facility] Address: [address] [place] [address] Performed By: #### 5 0190-8, 2275-4 #### [facility] CLIA [id number] [address] [place] [address] [place] Erythrocyte distribution width (RBC) [Ratio] 19.9 % High 11.5-15.0 [facility] Comment on above: Order Comment: Speci men Type: BLOOD SPECIMEN Ordering Facility: [facility] Address: [address] [place], [place] [address] Performed By: #### 5 0190-8, 2275- #### [facility] CLIA [id number] [address] [place] [address] [place] Hematocrit (Bld) [Volume fraction] 25.1 % Low 36.0-46.0 [facility] Comment on above: Order Comment: Speci men Type: BLOOD SPECIMEN Ordering Facility: [facility] Address: [address] Performed By: #### 5 0190-8, 2276-02 #### [facility] CLIA [id number] [address] [place] [address] [place] Hemoglobin (Bld) [Mass/Vol] 7.1 g/dL Low 11.5-15.5 [facility] Comment on above: Order Comment: Speci men Type: BLOOD SPECIMEN Ordering Facility: [facility] Address: [address] Performed By: #### 5 0190-8, 2276-02 #### [facility] CLIA [id number] [address] [place] [address] [place] Immature granulocytes (Bld) [#/Vol] 10*3/uL Normal <0.10 [facility] Comment on above: Order Comment: Speci men Type: BLOOD SPECIMEN Ordering Facility: [facility] Address: [address] [place], [place] [address] Performed By: #### 5 0190-8, 2276-02 #### [facility] CLIA [id number] [address] [place] [address] [place] Immature granulocytes/100 WBC (Bld) 0.3 % Normal [facility] Comment on above: Order Comment: Speci men Type: BLOOD SPECIMEN Ordering Facility: [facility] Address: [address] Performed By: #### 5 0190-8, 2276-02 #### [facility] CLIA [id number] [address] [place] [address] [place] Lymphocytes (Bld) [#/Vol] 1.12 10*3/uL Normal 1.00-4.00 [facility] Comment on above: Order Comment: Speci men Type: BLOOD SPECIMEN Ordering Facility: [facility] Address: [address] Performed By: #### 5 0190-8, 2275-4 #### [facility] CLIA [id number] [address] [place] [address] [place] [facility] Lymphocytes/100 WBC (Bld) 34.6 % Normal [facility] Comment on above: Order Comment: Speci men Type: BLOOD SPECIMEN Ordering Facility: [facility] Address: [address] [place] [address] Performed By: #### 5 0190-8, 2275- #### [facility] CLIA [id number] [address] [place] [address] [place] MCH (RBC) [Entitic mass] 19.2 pg Low 26.0-34.0 [facility] Comment on above: Order Comment: Speci men Type: BLOOD SPECIMEN Ordering Facility: [facility] Address: [address] [place] [address] Performed By: #### 5 0190-8, 2275- #### [facility] CLIA [id number] [address] [place] [address] [place] MCHC (RBC) [Mass/Vol] 28.3 g/dL Low 30.5-36.0 [facility] Comment on above: Order Comment: Speci men Type: BLOOD SPECIMEN Ordering Facility: [facility] Address: [address] [place], [place] [address] Performed By: #### 5 0190-8, 2275- #### [facility] CLIA [id number] [address] [place] [address] [place] MCV (RBC) [Entitic vol] 67.8 fL Low 80.0-100.0 [facility] Comment on above: Order Comment: Speci men Type: BLOOD SPECIMEN Ordering Facility: [facility] Address: [address] [place], [place] [address] Performed By: #### 5 0190-8, 2276-02 #### [facility] CLIA [id number] [address] [place] [address] [place] Monocytes (Bld) [#/Vol] 0.49 10*3/uL Normal <0.87 [facility] Comment on above: Order Comment: Speci men Type: BLOOD SPECIMEN Ordering Facility: [facility] Address: [address] [place] [address] Performed By: #### 5 0190-8, 2276-02 #### [facility] CLIA [id number] [address] [place] [address] [place] Monocytes/100 WBC (Bld) 15.1 % Normal [facility] Comment on above: Order Comment: Speci men Type: BLOOD SPECIMEN Ordering Facility: [facility] Address: [address] [place], [place] [address] Performed By: #### 5 0190-8, 2276-02 #### [facility] CLIA [id number] [address] [place] [address] [place] Neutrophils (Bld) [#/Vol] 1.43 10*3/uL Low 1.45-7.50 [facility] Comment on above: Order Comment: Speci men Type: BLOOD SPECIMEN Ordering Facility: [facility] Address: [address] [place] [address] Performed By: #### 5 0190-8, 2276-02 #### [facility] CLIA [id number] [address] [place] [address] [place] Neutrophils/100 WBC (Bld) 44.2 % Normal [facility] Comment on above: Order Comment: Speci men Type: BLOOD SPECIMEN Ordering Facility: [facility] Address: [address] [place] [address] Performed By: #### 5 0190-8, 2276-02 #### [facility] CLIA [id number] [address] [place] [address] [place] Nucleated RBC (Bld) [#/Vol] 10*3/uL Normal <0.01 [facility] Comment on above: Order Comment: Speci men Type: BLOOD SPECIMEN Ordering Facility: [facility] Address: [address] [place], [place] [address] Performed By: #### 5 0190-8, 2275- #### [facility] CLIA [id number] [address] [place] [address] [place] Nucleated RBC/100 WBC (Bld) [Ratio] 0.0 /100 WBC Normal [facility] Comment on above: Order Comment: Speci men Type: BLOOD SPECIMEN Ordering Facility: [facility] Address: [address] [place] [address] Performed By: #### 5 0190-8, 2275- #### [facility] CLIA [id number] [address] [place] [address] [place] Platelet mean volume (Bld) [Entitic vol] 9.8 fL Normal 9.0-12.7 [facility] Comment on above: Order Comment: Speci men Type: BLOOD SPECIMEN Ordering Facility: [facility] Address: [address] [place], [place] [address] Performed By: #### 5 0190-8, 2275- #### [facility] CLIA [id number] [address] [place] [address] [place] Platelets (Bld) [#/Vol] 304 10*3/uL Normal 150-400 [facility] Comment on above: Order Comment: Speci men Type: BLOOD SPECIMEN Ordering Facility: [facility] Address: [address] [place] [address] Performed By: #### 5 0190-8, 2275- #### [facility] CLIA [id number] [address] [place] [address] [place] RBC (Bld) [#/Vol] 3.70 10*6/uL Low 3.90-5.20 [facility] Comment on above: Order Comment: Speci men Type: BLOOD SPECIMEN Ordering Facility: [facility] Address: [address] [place] [address] Performed By: #### 5 0190-8, 2276-4 #### [facility] CLIA [id number] [address] [place] [address] [place] WBC (Bld) [#/Vol] 3.24 10*3/uL Low 3.70-11.00 [facility] Comment on above: Order Comment: Speci men Type: BLOOD SPECIMEN Ordering Facility: [facility] Address: [address] [place] [address] Performed By: #### 5 0190-8, 2276-4 #### [facility] CLIA [id number] [address] [place] [address] [place] Basophils (Bld) [#/Vol] 0.03 10*3/uL <0.11 k/uL [facility] Basophils/100 WBC (Bld) 0.9 % [facility] Differential cell count method Nom (Bld) Auto [facility] Eosinophils (Bld) [#/Vol] 0.16 10*3/uL <0.46 k/uL [facility] Eosinophils/100 WBC (Bld) 4.9 % [facility] Erythrocyte distribution width (RBC) [Ratio] 19.9 % High 11.5 - 15.0 % [facility] Hematocrit (Bld) [Volume fraction] 25.1 % Low 36.0 - 46.0 % [facility] Hemoglobin (Bld) [Mass/Vol] 7.1 g/dL Low 11.5 - 15.5 g/dL [facility] Immature granulocytes (Bld) [#/Vol] <0.10 k/uL [facility] Immature granulocytes/100 WBC (Bld) 0.3 % [facility] Lymphocytes (Bld) [#/Vol] 1.12 10*3/uL 1.00 - 4.00 k/uL [facility] Lymphocytes/100 WBC (Bld) 34.6 % [facility] MCH (RBC) [Entitic mass] 19.2 pg Low 26.0 - 34.0 pg [facility] MCHC (RBC) [Mass/Vol] 28.3 g/dL Low 30.5 - 36.0 g/dL [facility] MCV (RBC) [Entitic vol] 67.8 fL Low 80.0 - 100.0 fL [facility] Monocytes (Bld) [#/Vol] 0.49 10*3/uL <0.87 k/uL [facility] Monocytes/100 WBC (Bld) 15.1 % [facility] Neutrophils (Bld) [#/Vol] 1.43 10*3/uL Low 1.45 - 7.50 k/uL [facility] Neutrophils/100 WBC (Bld) 44.2 % [facility] Nucleated RBC (Bld) [#/Vol] <0.01 k/uL [facility] Nucleated RBC/100 WBC (Bld) [Ratio] 0.0 /100 WBC [facility] Platelet mean volume (Bld) [Entitic vol] 9.8 fL 9.0 - 12.7 fL [facility] Platelets (Bld) [#/Vol] 304 10*3/uL 150 - 400 k/uL [facility] RBC (Bld) [#/Vol] 3.70 10*6/uL Low 3.90 - 5.2 0 m/uL [facility] WBC (Bld) [#/Vol] 3.24 10*3/uL Low 3.70 - 11. 00 k/uL [facility] CNOVon 07-04-2023 CNOV Office Visit (HOMERO ) ISABEL WADDELL ([id number]) 1960 F Date Time Provider Department 07/04/23 [...] regular bowel movements. 03/05/23 Juan Manuel Medina, DYE LINE OPERATOR: Isabel Waddell is a 62 year [...] 150 mg by mouth daily at bedtime. [id number]-ZHB-KHN-FISH OIL-L.CASEI ORAL Take by mouth once daily. Lactobac no.41/Bifidobact no.7 (PROBIOTIC (more content not included)... Normal [facility] Comprehensive metabolic 2000 panelon 07-04-2023 Albumin [Mass/Vol] 4.0 g/dL Normal 3.9-4.9 [facility] Comment on above: Order Comment: Speci men Type: BLOOD SPECIMEN Ordering Facility: [facility] Address: [address] [place] [address] Performed By: #### 2 4323-8 #### [facility] CLIA [id number] [address] [place] [address] [place] ALP [Catalytic activity/Vol] 161 U/L High 34-123 [facility] Comment on above: Order Comment: Speci men Type: BLOOD SPECIMEN Ordering Facility: [facility] Address: [address] [place] [address] Performed By: #### 2 4323-8 #### [facility] CLIA [id number] [address] [place] [address] [place] ALT [Catalytic activity/Vol] 47 U/L High 7-38 [facility] Comment on above: Order Comment: Speci men Type: BLOOD SPECIMEN Ordering Facility: [facility] Address: [address] [place] [address] Performed By: #### 2 4323-8 #### [facility] CLIA [id number] [address] [place] [address] [place] Anion gap [Moles/Vol] 11 mmol/L Normal 9-18 [facility] Comment on above: Order Comment: Speci men Type: BLOOD SPECIMEN Ordering Facility: [facility] Address: [address] [place], [place] [address] Performed By: #### 2 4323-8 #### [facility] CLIA [id number] [address] [place] [address] [place] AST [Catalytic activity/Vol] 41 U/L High 13-35 [facility] Comment on above: Order Comment: Speci men Type: BLOOD SPECIMEN Ordering Facility: [facility] Address: [address] [place] [address] Performed By: #### 2 4323-8 #### [facility] CLIA [id number] [address] [place] [address] [place] Bilirubin [Mass/Vol] 0.3 mg/dL Normal 0.2-1.3 [facility] Comment on above: Order Comment: Speci men Type: BLOOD SPECIMEN Ordering Facility: [facility] Address: [address] Performed By: #### 2 4323-8 #### [facility] CLIA [id number] [address] [place] [address] [place] Calcium [Mass/Vol] 9.5 mg/dL Normal 8.5-10.2 [facility] Comment on above: Order Comment: Speci men Type: BLOOD SPECIMEN Ordering Facility: [facility] Address: [address] Performed By: #### 2 4323-8 #### [facility] CLIA [id number] [address] [place] [address] [place] Chloride [Moles/Vol] 105 mmol/L Normal 97-105 [facility] Comment on above: Order Comment: Speci men Type: BLOOD SPECIMEN Ordering Facility: [facility] Address: [address] Performed By: #### 2 4323-8 #### [facility] CLIA [id number] [address] [place] [address] [place] CO2 [Moles/Vol] 26 mmol/L Normal 22-30 [facility] Comment on above: Order Comment: Speci men Type: BLOOD SPECIMEN Ordering Facility: [facility] Address: [address] Performed By: #### 2 4323-8 #### [facility] CLIA [id number] [address] STATES OF [facility] Creatinine [Mass/Vol] 0.74 mg/dL Normal 0.58-0.96 [facility] Comment on above: Order Comment: Adonis mayo Type: BLOOD SPECIMEN Ordering Facility: [facility] Address: [address] [place] [address] Performed By: #### 2 4323-8 #### [facility] CLIA [id number] [address] [place] [address] Creatinine and Glomerular filtration rate.predicted panel (S/P/Bld) 91 mL/min/1.73m??? Normal >=60 [facility] Comment on above: Order Comment: Adonis mayo Type: BLOOD SPECIMEN Ordering Facility: [facility] Address: [address] [place] [address] Result Comment: Kae mated Glomerular Filtration Rate [...] GFR. Performed By: #### 2 4323-8 #### [facility] CLIA [id number] [facility] [address] [place] Glucose [Mass/Vol] 104 mg/dL High 74-99 [facility] Comment on above: Order Comment: Adonis mayo Type: BLOOD SPECIMEN Ordering Facility: [facility] Address: [address] [address] Result Comment: The [place] Diabetes Association (ADA) provides guidance for cutoff [...] Standards of Medical Care in Diabetes 2016, [place] [employer]. Diabetes Care. 2016.39(Suppl 1). Performed By: #### 2 4323-8 #### [facility] CLIA [id number] [facility] [place] [address] [place] Potassium [Moles/Vol] 4.5 mmol/L Normal 3.7-5.1 [facility] Comment on above: Order Comment: Speci men Type: BLOOD SPECIMEN Ordering Facility: [facility] Address: [address] [place] [place] [address] Performed By: #### 2 4323-8 #### [facility] CLIA [id number] [address] [place] [address] [place] Protein [Mass/Vol] 6.3 g/dL Normal 6.3-8.0 [facility] Comment on above: Order Comment: Speci men Type: BLOOD SPECIMEN Ordering Facility: [facility] Address: [address] Performed By: #### 2 4323-8 #### [facility] CLIA [id number] [address] [place] [address] [place] Sodium [Moles/Vol] 142 mmol/L Normal 136-144 [facility] Comment on above: Order Comment: Speci men Type: BLOOD SPECIMEN Ordering Facility: [facility] Address: [address] [place] [address] Performed By: #### 2 4323-8 #### [facility] CLIA [id number] [address] [place] [address] [place] Urea nitrogen [Mass/Vol] 16 mg/dL Normal 7-21 [facility] Comment on above: Order Comment: Speci men Type: BLOOD SPECIMEN Ordering Facility: [facility] Address: [address] Performed By: #### 2 4323-8 #### [facility] CLIA [id number] [address] [place], [place] [address] [address] [place] HISTORY PHYSICALon 3 HISTORY PHYSICAL HNO ID: [id number] Author: [place], DO Service: ? Author [...] regular bowel movements. 03/05/23 Juan Manuel Medina DYE LINE OPERATOR: Isabel Waddell is a 62 year [...] 150 mg by mouth daily at bedtime. [id number]-TMB-AZH-FISH OIL-L.CASEI ORAL Take by mouth once daily. Lactobac no.41/Bifidobact no.7 (PROBIOTIC-10 ORAL) Take by mouth once daily. MULTIVITAMIN TAB Take one(1) tablet daily. 0 B COMPLEX VITAMINS CAP Take one(1) capsule daily. 0 CALCIUM CARBONATE-VIT D3-MINERALS 600 MG-400 UNIT TAB Take 1 tablet by mouth twice daily. 0 Current Facility-Administered Medications Medication (more content not included)... Normal [facility] CNOVon 06-27-2023 CNOV Office Visit (PMNA11 ) ISABEL WADDELL Ashlie ([id number]) 1960 F Date Time Provider Department 06/27/23 10:30 AM HEIDI MENARD PMNA11 During your visit today, we recorded the following information about you: Temperature Pulse Respiration Blood pressure 97.4 degrees 70/minute 16/minute 141/76 Weight 69.4 kg Heidi Menard MD 06/27/2023 11:47 AM Addendum Ms. Waddell is a 63 year old female who presents to the [facility] [place]. Consultation requested by Self. 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 Silica: No significant exposure. [place]: No significant exposure. Organic HP antigen: No [...] and de-a (more content not included)... Normal [facility] HEMOGLOBINon 03-21-2023 Hemoglobin (Bld) [Mass/Vol] 9.1 g/dL Critically low 12.0-16.0 [facility] Comment on above: Performed By: #### H GB ####[facility] [address] [place], [place] [address]Sy. Cheryl Monzon XR CHEST 2 Von 03-10-2023 [...] by: HENRY LOCK Date: 2023-03-10 13:57 Normal [facility] CNOVon 03-05-2023 CNOV Office Visit (GASTLN ) ISABEL WADDELL ([id number]) 1960 F Date Time Provider Department 03/05/23 [...] Abs Lymph 1.00 - 4.00 k/uL 1.31 [place]% % 11.1 Abs [place] <0.87 k/uL 0.50 Eosin% % 3.1 Abs [...] or Indwelling (more content not included)... Normal [facility] HISTORY PHYSICALon 3 HISTORY PHYSICAL HNO ID: [id number] Author: Juan Manuel Medina APRN.DYE LINE OPERATOR Service: ? Author Type: Nurse Practitioner [...] Abs Lymph 1.00 - 4.00 k/uL 1.31 [place]% % 11.1 Abs [place] <0.87 k/uL 0.50 Eosin% % 3.1 Abs [...] mouth daily (more content not included)... Normal [facility] Covid-19 PCR ([facility])on SARS-CoV-2 (COVID-19) RNA ANGELA+probe Ql (Unsp spec) Not detected Normal NOT DETECTED [facility] Comment on above: Result Comment: When diagnostic [...] for this test is supported by the [employer] Consultant of Health and Human Service's declaration that [...] used). Performed By: #### C VDTB #### [facility] [address] [place] [address] Dr. Cheryl Monzon INFLUENZA A AND B [facility] 01-20 [facility] SEE BELOW Normal [facility] Comment on above: Result Comment: Nega tive for Flu A protein angiten. Infection due to Flu A cannot be ruled out. Flu A angiten in the sample may be below the detection limit of the test. Performed By: #### I NFLUAB #### [facility] [address] [place] [address] Dr. Cher[facility] BELOW Normal [facility] Comment on above: Result Comment: Nega tive for Flu B protein antigen. Infection due to Flu B cannot be ruled out. Flu B antigen in the sample may be below the detection limit of the test. Performed By: #### I NFLUAB #### [facility] [address] [address] [address] Cheryl Monzon INFLUENZA A AG Negative Normal NEGATIVE SEE COMMENT [facility] Comment on above: Performed By: #### I NFLUAB #### [facility] [address] [address] [address] Cheryl Monzon INFLUENZA B AG Negative Normal NEGATIVE SEE COMMENT [facility] Comment on above: Performed By: #### I NFLUAB #### [facility] [address] [address] [address] Cheryl Monzon FERRITIN BLDon 01-04-2023 Ferritin [Mass/Vol] 14.2 ng/mL Low 14.7 - 2 05.1 ng/mL [facility] Iron and Iron binding capaci ty panelon 01-04-2023 Iron [Mass/Vol] 77 ug/dL 41 - 186 ug/dL [facility] Iron binding capacity [Mass/Vol] 382 ug/dL 232 - 386 ug/dL [facility] Iron/TIBC [Molar ratio] 20.2 % 15.0 - 57.0 % [facility] CBC W Auto Differential pane l (Bld)on 01-03-2023 Basophils (Bld) [#/Vol] 10*3/uL Normal <0.11 [facility] Comment on above: Order Comment: Speci men Type: BLOOD SPECIMENOrdering Facility: [facility] Address: [address] [place] [address] Performed By: #### 5 7021-8 ####[facility] [id number] [place] [address] [place] Basophils/100 WBC (Bld) 0.4 % Normal [facility] Comment on above: Order Comment: Speci men Type: BLOOD SPECIMENOrdering Facility: [facility] Address: [address] [address] Performed By: #### 5 7021-8 ####[facility] [id number] [place] [address] [place] Differential cell count method Nom (Bld) Auto Normal [facility] Comment on above: Order Comment: Speci men Type: BLOOD SPECIMENOrdering Facility: [facility] Address: [address] Performed By: #### 5 7021-8 ####[facility] [id number] [place] [address] [place] [facility] [place] Eosinophils (Bld) [#/Vol] 0.14 10*3/uL Normal <0.46 [facility] Comment on above: Order Comment: Speci men Type: BLOOD SPECIMENOrdering Facility: [facility] Address: [address] Performed By: #### 5 7021-8 ####[facility] [id number] [address] [place] Eosinophils/100 WBC (Bld) 3.1 % Normal [facility] Comment on above: Order Comment: Speci men Type: BLOOD SPECIMENOrdering Facility: [facility] Address: [address] Performed By: #### 5 7021-8 ####[facility] [id number] [place] [address] [place] Erythrocyte distribution width (RBC) [Ratio] 13.0 % Normal 11.5-15.0 [facility] Comment on above: Order Comment: Speci men Type: BLOOD SPECIMENOrdering Facility: [facility] Address: [address] Performed By: #### 5 7021-8 ####[facility] [id number] [address] [place] Hematocrit (Bld) [Volume fraction] 35.4 % Low 36.0-46.0 [facility] Comment on above: Order Comment: Speci men Type: BLOOD SPECIMENOrdering Facility: [facility] Address: [address] Performed By: #### 5 7021-8 ####[facility] [id number] [place] [address] [place] Hemoglobin (Bld) [Mass/Vol] 11.5 g/dL Normal 11.5-15.5 [facility] Comment on above: Order Comment: Speci men Type: BLOOD SPECIMENOrdering Facility: [facility] Address: [address] [place] [address] Performed By: #### 5 7021-8 ####[facility] [id number] [place] [address] [place] Immature granulocytes (Bld) [#/Vol] 10*3/uL Normal <0.10 [facility] Comment on above: Order Comment: Speci men Type: BLOOD SPECIMENOrdering Facility: [facility] Address: [address] [place] [address] Performed By: #### 5 7021-8 ####[facility] [id number] [place] [address] [place] Immature granulocytes/100 WBC (Bld) 0.2 % Normal [facility] Comment on above: Order Comment: Speci men Type: BLOOD SPECIMENOrdering Facility: [facility] Address: [address] [place], [place] [address] Performed By: #### 5 7021-8 ####[facility] [id number] [place] [address] [place] Lymphocytes (Bld) [#/Vol] 1.31 10*3/uL Normal 1.00-4.00 [facility] Comment on above: Order Comment: Speci men Type: BLOOD SPECIMENOrdering Facility: [facility] Address: [address] [place], [place] [address] Performed By: #### 5 7021-8 ####[facility] [id number] [place] [address] [place] Lymphocytes/100 WBC (Bld) 29.0 % Normal [facility] Comment on above: Order Comment: Speci men Type: BLOOD SPECIMENOrdering Facility: [facility] Address: [address] [place], [place] [address] Performed By: #### 5 7021-8 ####[facility]IA [id number] [address] STATES [facility] MCH (RBC) [Entitic mass] 30.0 pg Normal 26.0-34.0 [facility] Comment on above: Order Comment: Speci men Type: BLOOD SPECIMENOrdering Facility: [facility] Address: [address] [place], [place] [address] Performed By: #### 5 7021-8 ####[facility] [id number] [address] [place] MCHC (RBC) [Mass/Vol] 32.5 g/dL Normal 30.5-36.0 [facility] Comment on above: Order Comment: Speci men Type: BLOOD SPECIMENOrdering Facility: [facility] Address: [address] [place], [place] [address] Performed By: #### 5 7021-8 ####[facility] [id number] [address] [place] MCV (RBC) [Entitic vol] 92.4 fL Normal 80.0-100.0 [facility] Comment on above: Order Comment: Speci men Type: BLOOD SPECIMENOrdering Facility: [facility] Address: [address] [place], [place] [address] Performed By: #### 5 7021-8 ####[facility] [id number] [address] [place] Monocytes (Bld) [#/Vol] 0.50 10*3/uL Normal <0.87 [facility] Comment on above: Order Comment: Speci men Type: BLOOD SPECIMENOrdering Facility: [facility] Address: [address] Performed By: #### 5 7021-8 ####[facility] [id number] [address] [place] Monocytes/100 WBC (Bld) 11.1 % Normal [facility] Comment on above: Order Comment: Speci men Type: BLOOD SPECIMENOrdering Facility: [facility] Address: [address] Performed By: #### 5 7021-8 ####[facility] [id number] [place] [address] [place] Neutrophils (Bld) [#/Vol] 2.53 10*3/uL Normal 1.45-7.50 [facility] Comment on above: Order Comment: Speci men Type: BLOOD SPECIMENOrdering Facility: [facility] Address: [address] Performed By: #### 5 7021-8 ####[facility] [id number] [address] [place] Neutrophils/100 WBC (Bld) 56.2 % Normal [facility] Comment on above: Order Comment: Speci men Type: BLOOD SPECIMENOrdering Facility: [facility] Address: [address] Performed By: #### 5 7021-8 ####[facility] [id number] [place] [address] [place] Nucleated RBC (Bld) [#/Vol] 10*3/uL Normal <0.01 [facility] Comment on above: Order Comment: Speci men Type: BLOOD SPECIMENOrdering Facility: [facility] Address: [address] [place] [address] Performed By: #### 5 7021-8 ####[facility]IA [id number] [place] [address] [place] Nucleated RBC/100 WBC (Bld) [Ratio] 0.0 /100 WBC Normal [facility] Comment on above: Order Comment: Speci men Type: BLOOD SPECIMENOrdering Facility: [facility] Address: [address] [place] [address] Performed By: #### 5 7021-8 ####[facility] [id number] [place] [address] [place] Platelet mean volume (Bld) [Entitic vol] 9.9 fL Normal 9.0-12.7 [facility] Comment on above: Order Comment: Speci men Type: BLOOD SPECIMENOrdering Facility: [facility] Address: [address] [place] [address] Performed By: #### 5 7021-8 ####[facility] [id number] [place] [address] [place] Platelets (Bld) [#/Vol] 235 10*3/uL Normal 150-400 [facility] Comment on above: Order Comment: Speci men Type: BLOOD SPECIMENOrdering Facility: [facility] Address: [address] [place], [place] [address] Performed By: #### 5 7021-8 ####[facility] [id number] [place] [address] [place] RBC (Bld) [#/Vol] 3.83 10*6/uL Low 3.90-5.20 [facility] Comment on above: Order Comment: Speci men Type: BLOOD SPECIMENOrdering Facility: [facility] Address: [address] [place], [place] [address] Performed By: #### 5 7021-8 ####[facility] [id number] [place] [address] [place] WBC (Bld) [#/Vol] 4.51 10*3/uL Normal 3.70-11.00 [facility] Comment on above: Order Comment: Speci men Type: BLOOD SPECIMENOrdering Facility: [facility] Address: [address] [id number] Performed By: #### 5 7021-8 ####[facility] [id number] [facility] [id number] [place] [address] [place] Basophils (Bld) [#/Vol] <0.11 k/uL [facility] Basophils/100 WBC (Bld) 0.4 % [facility] Differential cell count method Nom (Bld) Auto [facility] Eosinophils (Bld) [#/Vol] 0.14 10*3/uL <0.46 k/uL [facility] Eosinophils/100 WBC (Bld) 3.1 % [facility] Erythrocyte distribution width (RBC) [Ratio] 13.0 % 11.5 - 15.0 % [facility] Hematocrit (Bld) [Volume fraction] 35.4 % Low 36.0 - 46.0 % [facility] Hemoglobin (Bld) [Mass/Vol] 11.5 g/dL 11.5 - 15.5 g/dL [facility] Immature granulocytes (Bld) [#/Vol] <0.10 k/uL [facility] Immature granulocytes/100 WBC (Bld) 0.2 % [facility] Lymphocytes (Bld) [#/Vol] 1.31 10*3/uL 1.00 - 4.00 k/uL [facility] Lymphocytes/100 WBC (Bld) 29.0 % [facility] MCH (RBC) [Entitic mass] 30.0 pg 26.0 - 34.0 pg [facility] MCHC (RBC) [Mass/Vol] 32.5 g/dL 30.5 - 36.0 g/dL [facility] MCV (RBC) [Entitic vol] 92.4 fL 80.0 - 100.0 fL [facility] Monocytes (Bld) [#/Vol] 0.50 10*3/uL <0.87 k/uL [facility] Monocytes/100 WBC (Bld) 11.1 % [facility] Neutrophils (Bld) [#/Vol] 2.53 10*3/uL 1.45 - 7.50 k/uL [facility] Neutrophils/100 WBC (Bld) 56.2 % [facility] Nucleated RBC (Bld) [#/Vol] <0.01 k/uL [facility] Nucleated RBC/100 WBC (Bld) [Ratio] 0.0 /100 WBC [facility] Platelet mean volume (Bld) [Entitic vol] 9.9 fL 9.0 - 12.7 fL [facility] Platelets (Bld) [#/Vol] 235 10*3/uL 150 - 400 k/uL [facility] RBC (Bld) [#/Vol] 3.83 10*6/uL Low 3.90 - 5.2 0 m/uL [facility] WBC (Bld) [#/Vol] 4.51 10*3/uL 3.70 - 11. 00 k/uL [facility] CNOVSPon 01-03-2023 CNOVSP Visit (SP) Office (GYONCA) ISABEL WADDELL ([id number]) 1960 F Date Time Provider Department 01/03/23 3:20 PM HENRY RAMOS During your visit today, we recorded the following information about you: Temperature Pulse Blood pressure Weight 97.8 degrees 95/minute 141/87 71.2 kg Height 1.676 m Henry Ramos MD 01/12/2023 11:27 PM Signed Gynecologic Oncology 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 The patient [...] ORAL T (more content not included)... Normal [facility] Ferritin SerPl-mCncon 2022 Ferritin [Mass/Vol] 14.2 ng/mL Low 14.7-205.1 [facility] Comment on above: Order Comment: Adonis mayo Type: BLOOD SPECIMEN Ordering Facility: [facility] Address: [address] [place] [address] Performed By: #### 5 0190-8, 2276-4 #### [facility] CLIA [id number] [address] [place] [address] [place] Iron and Iron binding capaci ty panelon 01-03-2023 Iron [Mass/Vol] 77 ug/dL Normal 41-186 [facility] Comment on above: Order Comment: Speci men Type: BLOOD SPECIMEN Ordering Facility: [facility] Address: [address] [address] Performed By: #### 5 0190-8, 2276-4 #### [facility] CLIA [id number] [address] [place] [address] Iron binding capacity [Mass/Vol] 382 ug/dL Normal 232-386 [facility] Comment on above: Order Comment: Speci men Type: BLOOD SPECIMEN Ordering Facility: [facility] Address: [address] [place] [address] Performed By: #### 5 0190-8, 2276-4 #### [facility] CLIA [id number] [address] [place] [address] [facility] Iron/TIBC [Molar ratio] 20.2 % Normal 15.0-57.0 [facility] Comment on above: Order Comment: Speci men Type: BLOOD SPECIMEN Ordering Facility: [facility] Address: [address] [place] [address] Performed By: #### 5 0190-8, 2276-4 #### [facility] CLIA [id number] [address] [place] [address] [facility] CNPKlaudia 12-25-2022 CNPN Telephone (BHAVNA) ISABEL WADDELL ([id number]) 1960 F Date Time Provider Department 12/25/22 ARETHA PENA During your visit today, we recorded the following information about you: Aretha Pena RN 12/25/2022 2:19 PM Signed ----- Message from [employer] sent at 12/25/2022 12:04 PM EST ----- Regarding: Rachel Patient bleeding and clotting almost daily since Colonoscopy. September was the Colonoscopy. Concerned and would like to know if she should schedule an appointment. [phone] Aretha Pena RN 12/25/2022 2:24 PM Signed [...] mg by mouth daily at bedtime. - [id number]-FISH OIL-L.CASEI ORAL Take by mouth once daily. [...] Status:Closed by ARETHA PENA on 12/25/22 Normal [facility] Covid-19 PCR (CVDTB)on SARS-CoV-2 (COVID-19) RNA ANGELA+probe Ql (Unsp spec) Not detected Normal NOT DETECTED [facility] Comment on above: Result Comment: When diagnostic [...] for this test is supported by the [employer] Consultant of Health and Human Service's declaration that [...] used). Performed By: #### C VDTB #### [facility] [address] [place] [address] Dr. Cheryl Monzon INFLUENZA A AND B AGon 11-19 INFLUANEGH SEE BELOW Normal [facility] Comment on above: Result Comment: Nega tive for Flu A protein angiten. Infection due to Flu A cannot be ruled out. Flu A angiten in the sample may be below the detection limit of the test. Performed By: #### I NFLUAB #### [facility] [address] [place] [address] Dr. Cheryl [facility] SEE BELOW Normal [facility] Comment on above: Result Comment: Nega tive for Flu B protein antigen. Infection due to Flu B cannot be ruled out. Flu B antigen in the sample may be below the detection limit of the test. Performed By: #### I NFLUAB #### [facility] [address] [place] [address] Dr. Cheryl Monzon INFLUENZA A AG Negative Normal NEGATIVE SEE COMMENT [facility] Comment on above: Performed By: #### I NFLUAB #### [facility] [address] [place] [address] Dr. Cheryl Monzon INFLUENZA B AG Negative Normal NEGATIVE SEE COMMENT [facility] Comment on above: Performed By: #### I NFLUAB #### [facility] [address] [place] [address] Dr. Cheryl Monzon MG MAMM SCREEN 3D RAGHU CADon 10-04-2022 MG MAMM SCREEN 3D RAGHU CAD Patient: ISABEL WADDELL Exam Date: 10/04/2022 : 1960 Gender:F Ordering : DR ROLAND SERRANO D.O. Admission #: [id number] Family : Order #: [id number] CLICK HERE TO VIEW EXAM RADIOLOGY REPORT [...] Treatments radiation-hysterectomy Family Cancers None LOCATION: [facility] BREAST COMPOSITION: Scattered areas fibroglandular density. FINDINGS: [...] MD on 10/04/2022 at 13:53 Normal [facility] COLONOSCOPY (THERAPEUTIC)on 09-26-2022 [facility] T3, TOTAL (TRIIODOTHYRONINE) on 09-05-2022 T3, TOTAL 132 ng/dL Normal 71-180 [facility] Comment on above: Performed By: #### T 3TOTAL ####[facility] [address] [place], [place] [address]DrStephan Monzon CBC AUTO DIFFon 09-04-2022 BASO # 0.0 103/ul Normal 0.0-0.1 [facility] Comment on above: Performed By: #### C BC ####[facility] [address] [place], [place] [address]DrStephan Monzon Basophils/100 WBC (Bld) 0.4 % Normal 0.2-2.0 [facility] Comment on above: Performed By: #### C BC ####[facility] [address] [place], [place] [address]DrStephan Monzon EO # 0.1 103/ul Normal 0.0-0.7 [facility] Comment on above: Performed By: #### C BC ####[facility] [address] [place], [place] [address]DrStephan Monzon Eosinophils/100 WBC (Bld) 4.9 % Normal 0.9-7.0 [facility] Comment on above: Performed By: #### C BC ####[facility] [address] [place], [place] [address]DrStephan Monzon Erythrocyte distribution width (RBC) [Ratio] 12.8 % Normal 11.0-15.0 [facility] Comment on above: Performed By: #### C BC ####[facility] [address] [place], [place] [address]DrStephan Monzon Hematocrit (Bld) [Volume fraction] 36.7 % Normal 36.0-48.0 [facility] Comment on above: Performed By: #### C BC ####[facility] [address] [address]DrStephan Galeanaalden Nicolás Hemoglobin (Bld) [Mass/Vol] 11.8 g/dL Critically low 12.0-16.0 [facility] Comment on above: Performed By: #### C BC ####[facility] [address] [address]DrStephan Monzon IG # 0.01 10e3/ul Normal 0.00-0.03 [facility] Comment on above: Performed By: #### C BC ####[facility] [address] [place], [place] [address]DrStephan Monzon IG % 0.4 % Normal 0.0-0.5 [facility] Comment on above: Performed By: #### C BC ####[facility] [address] [place], [place] [address]DrStephan Monzon LYMPH # 0.8 103/ul Critically low 1.2-3.8 [facility] Comment on above: Performed By: #### C BC ####[facility] [address] [place], [place] [address]DrStephan Monzon Lymphocytes/100 WBC (Bld) 28.6 % Normal 20.5-60.0 [facility] Comment on above: Performed By: #### C BC ####[facility] [address] [place] [address]DrStephan Monzon MANUAL DIFF REQ NO Normal [facility] [facility] Comment on above: Performed By: #### C BC ####[facility] [address] [place] [id number] Monzon MCH (RBC) [Entitic mass] 30.7 pg Normal 26.7-34.0 [facility] Comment on above: Performed By: #### C BC ####[facility] [address] [place] [id number] Monzon MCHC (RBC) [Mass/Vol] 32.2 g/dL Normal 29.9-35.2 [facility] Comment on above: Performed By: #### C BC ####[facility] [address] [place] [address]DrStephan Cheryl Nicolás MCV (RBC) [Entitic vol] 95.6 fL Normal 81.0-99.0 [facility] Comment on above: Performed By: #### C BC ####[facility] [address] [place] [address]DrStephan Monzon MONO # 0.3 103/ul Normal 0.3-0.8 [facility] Comment on above: Performed By: #### C BC ####[facility] [address] [place] [address]DrStephan Monzon Monocytes/100 WBC (Bld) 11.7 % Normal 1.7-12.0 [facility] Comment on above: Performed By: #### C BC ####[facility] [address] [place], [place] [address]Dr. Cheryl Monzon NEUT # 1.4 103/ul Normal 1.4-6.5 [facility] Comment on above: Performed By: #### C BC ####[facility] [address] [place], [place] [address]Dr. Cheryl Monzon Neutrophils/100 WBC (Bld) 54.0 % Normal 43.0-75.0 [facility] Comment on above: Performed By: #### C BC ####[facility] Lab[address] [place], [place] [address]Dr. Cheryl Monzon Platelet mean volume (Bld) [Entitic vol] 9.2 fL Critically low 9.5-13.5 [facility] Comment on above: Performed By: #### C BC ####[facility] [address] [place], [place] [address]Dr. Cheryl Monzon PLT 217 103/ul Normal 150-450 [facility] Comment on above: Performed By: #### C BC ####[facility] [address] [place] [address]DrStephan Monzon RBC 3.84 106/ul Critically low 4.20-5.40 [facility] Comment on above: Performed By: #### C BC ####[facility] [address] [place] [address]Dr. Cheryl Monzon WBC 2.7 103/ul Critically low 4.0-11.0 [facility] Comment on above: Performed By: #### C BC ####[facility] [address] [place] [address]Dr. Cheryl Monzon FREE T4on 09-04-2022 Free T4 [Mass/Vol] 0.83 ng/dL Normal 0.76-1.46 [facility] Comment on above: Performed By: #### F T4 #### [facility] [address] [address] [address] Cheryl Monzon GLYCOHEMOGLOBIN A1Con 2021 ADA RECOMMENDATION SEE BELOW Normal [facility] Comment on above: Result Comment: ADA RECOMMENDED LIMIT 4.0 - 6.0 ADA THERAPEUTIC TARGET < 7.0 ACTION SUGGESTED > 7.0 Performed By: #### A 1C #### [facility] [address] [address] [address] Cheryl Monzon Glucose [Mass/Vol] 111 mg/dL Normal [facility] Comment on above: Performed By: #### A 1C #### [facility] [address] [address] [address] Cheryl Monzon HbA1c (Bld) [Mass fraction] 5.5 % Normal 4.5-6.2 [facility] Comment on above: Performed By: #### A 1C #### [facility] [address] [address] [address] Cheryl Monzon LIPID PROFILEon 09-04-2022 CHOL-HDL RATIO NORM SEE BELOW Normal [facility] Comment on above: Result Comment: 3.3 - 4.4 LOW RISK 4.4 - 7.1 AVERAGE RISK 7.1 - 11.0 MODERATE RISK >11.0 HIGH RISK Performed By: #### T SH, LIPID, CMP ####[facility] [address] [place] [address]Dr. Cheryl Monzon Cholesterol [Mass/Vol] 201 mg/dL Critically high <=200 [facility] Comment on above: Performed By: #### T SH, LIPID, CMP ####[facility] [address] [place] [address]Dr. Lissettalden Monzon Cholesterol in HDL [Mass/Vol] 78 mg/dL Critically high 40-60 [facility] Comment on above: Performed By: #### T SH, LIPID, CMP ####[facility] [address] [place] [address]Dr. Cheryl Monzon Cholesterol in LDL [Mass/Vol] 112.8 mg/dL Normal [facility] Comment on above: Performed By: #### T SH, LIPID, CMP ####[facility] [address] [place] [address]Dr. Cheryl Monzon Cholesterol.total/Chol esterol in HDL [Mass ratio] 2.6 {ratio} Normal [facility] Comment on above: Performed By: #### T SH, LIPID, CMP ####[facility] [address] [place] [address]Dr. Cheryl Monzon HDL NORMAL > or = 60 mg/dl - LO W CARDIOVASCULAR RISK <40 mg/dl - HIGH CARDIOVASCULAR RISK Normal [facility] Comment on above: Performed By: #### T SH, LIPID, CMP ####[facility] [address] [place] [address]Dr. Cheryl Monzon LDL CALC NORMAL SEE BELOW Normal [facility] Comment on above: Result Comment: <100 mg/dl OPTIMAL 100 - 129 mg/dl NEAR OR ABOVE OPTIMAL 130 - 159 mg/dl BORDERLINE HIGH 160 - 189 mg/dl HIGH >190 mg/dl VERY HIGH Performed By: #### T SH, LIPID, CMP ####[facility] [address] [place] [address]Dr. Cheryl Monzon Triglyceride [Mass/Vol] 51 mg/dL Normal <=150 [facility] Comment on above: Performed By: #### T SH, LIPID, CMP ####[facility] [address] [place] [address]Dr. Cheryl Monzon VLDL CALC 10.2 mg/dL Normal [facility] Comment on above: Performed By: #### T SH, LIPID, CMP ####[facility] [address] [place], [place] [address]JwDr. Cheryl Monzon PROF 14(COMP METB)on 022 Albumin [Mass/Vol] 3.3 g/dL Critically low 3.4-5.0 [facility] Comment on above: Performed By: #### T SH, LIPID, CMP #### [facility] [address] [address] [address] Cheryl Monzon Albumin/Globulin [Mass ratio] 1.0 {ratio} Normal [facility] Comment on above: Performed By: #### T SH, LIPID, CMP #### [facility] [address] [address] [address] Cheryl Monzon ALP [Catalytic activity/Vol] 94 U/L Normal 46-116 [facility] Comment on above: Performed By: #### T SH, LIPID, CMP #### [facility] [address] [address] [address] Cheryl Monzon ALT [Catalytic activity/Vol] 53 U/L Normal 14-59 [facility] Comment on above: Performed By: #### T SH, LIPID, CMP #### [facility] [address] [address] [address] Cheryl Monzon Anion gap [Moles/Vol] 8.8 mmol/L Normal [facility] Comment on above: Performed By: #### T SH, LIPID, CMP #### [facility] [address] [address] [address] Cheryl Monzon AST [Catalytic activity/Vol] 42 U/L Critically high 15-37 [facility] Comment on above: Performed By: #### T SH, LIPID, CMP #### [facility] [address] [address] [address] Cheryl Monzon Bilirubin [Mass/Vol] 0.3 mg/dL Normal 0.2-1.0 [facility] Comment on above: Performed By: #### T SH, LIPID, CMP #### [facility] [address] [address] [address] Cheryl Monzon Calcium [Mass/Vol] 8.8 mg/dL Normal 8.5-10.1 [facility] Comment on above: Performed By: #### T SH, LIPID, CMP #### [facility] [address] [address] [address] Cheryl Monzon Chloride [Moles/Vol] 106 mmol/L Normal 98-107 [facility] Comment on above: Performed By: #### T SH, LIPID, CMP #### [facility] [address] [address] [address] Cheryl Monzon CO2 [Moles/Vol] 30.7 mmol/L Normal 21.0-32.0 [facility] Comment on above: Performed By: #### T PUSHPA, LIPID, CMP #### [facility] [address] [place] [address] Dr. Cheryl Monzon Creatinine [Mass/Vol] 0.66 mg/dL Normal 0.55-1.02 [facility] Comment on above: Performed By: #### T PUSHPA, LIPID, CMP #### [facility] [address] [place] [address] Dr. Cheryl Monzon EGFR-AF GUINEAN >60 Normal >=60 [facility] Comment on above: Performed By: #### T PUSHPA, LIPID, CMP #### [facility] [address] [place] [address] Dr. Cheryl Monzon EGFR-NON AF GUINEAN >60 Normal >=60 [facility] Comment on above: Performed By: #### T PUSHPA, LIPID, CMP #### [facility] [address] [place] [address] Dr. Cheryl Monzon Globulin (S) [Mass/Vol] 3.4 g/dL Normal [facility] Comment on above: Performed By: #### T PUSHPA, LIPID, CMP #### [facility] [address] [place] [address] Dr. Cheryl Monzon Glucose [Mass/Vol] 115 mg/dL Critically high 74-106 [facility] Comment on above: Performed By: #### T SH, LIPID, CMP #### [facility] [address] [place] [address] Dr. Cheryl Monzon Potassium [Moles/Vol] 4.5 mmol/L Normal 3.5-5.1 [facility] Comment on above: Performed By: #### T PUSHPA LIPID, CMP #### [facility] [address] [place] [address] Dr. Cheryl Monzon Protein [Mass/Vol] 6.7 g/dL Normal 6.4-8.2 [facility] Comment on above: Performed By: #### T PUSHPA, LIPID, CMP #### [facility] [address] [place] [address] Dr. Cheryl Monzon Sodium [Moles/Vol] 141 mmol/L Normal 136-145 [facility] Comment on above: Performed By: #### T PUSHPA LIPID, CMP #### [facility] [address] [place] [address] Dr. Cheryl Monzon Urea nitrogen [Mass/Vol] 16.0 mg/dL Normal 7.0-18.0 [facility] Comment on above: Performed By: #### T PUSHPA, LIPID, CMP #### [facility] [address] [place] [address] Dr. Cheryl Monzon Urea nitrogen/Creatinine [Mass ratio] 24.2 mg/mg Normal [facility] Comment on above: Performed By: #### T PUSHPA, LIPID, CMP #### [facility] [address] [place] [address] Dr. Cheryl Monzon TSHon 09-04-2022 TSH 0.009 uIU/mL Critically low 0.358-3.740 [facility] Comment on above: Performed By: #### T PUSHPA, LIPID, CMP #### [facility] [address] [place] [address] Dr. Cheryl Monzon [facility] SARS-CoV-2 (COVID-19) RNA ANGELA+probe Ql (Unsp spec) Not detected Normal NOT DETECTED [facility] Comment on above: Result Comment: When diagnostic [...] for this test is supported by the [employer]ant of Health and Human Service's declaration that [...] used). Performed By: #### C VDTB #### [facility] [address] [place] [address] [address] Cheryl Monzon CBC with Diffon 11-22-2021 Abs. Basophil 0.00 k/uL Normal 0.0-0.2 [facility] Comment on above: Performed By: #### C DP, CMPX, SED, LAC #### [facility] [address] [place], [place] [id number] Special Agent In Charge: Jacob Campos MD Abs.Neutrophil (Seg) 2.80 k/uL Normal 2.5-7.0 [facility] Comment on above: Performed By: #### C DP, CMPX, SED, LAC #### [facility] [address] [place] [address] Special Agent In Charge: Jacob Campos MD Auto Diff Performed YES Normal [facility] Comment on above: Performed By: #### C DP, CMPX, SED, LAC #### [facility] [address] [place] [address] Special Agent In Charge: Jacob Campos MD Basophils/100 WBC (Bld) 1 % Normal 0-2 [facility] Comment on above: Performed By: #### C DP, CMPX, SED, LAC #### [facility] [address] [place] [address] Special Agent In Charge: Jacob Campos MD Eosinophils (Bld) [#/Vol] 0.10 10*3/uL Normal 0.0-0.4 [facility] Comment on above: Performed By: #### C DP, CMPX, SED, LAC #### [facility] [address] [place] [id number] Special Agent In Charge: Jacob Campos MD Eosinophils/100 WBC (Bld) 3 % Normal 0-5 [facility] Comment on above: Performed By: #### C DP, CMPX, SED, LAC #### [facility] [address] [place] [address] Special Agent In Charge: Jacob Campos MD Erythrocyte distribution width (RBC) [Ratio] 13.6 % Normal 12.1-15.2 [facility] Comment on above: Performed By: #### C DP, CMPX, SED, LAC #### [facility] [address] [place] [address] Special Agent In Charge: Jacob Campos MD Hematocrit (Bld) [Volume fraction] 33.4 % Low 36-46 [facility] Comment on above: Performed By: #### C DP, CMPX, SED, LAC #### [facility] [address] [place] [address] Special Agent In Charge: Jacob Campos MD Hemoglobin (Bld) [Mass/Vol] 11.3 g/dL Low 12.0-16.0 [facility] Comment on above: Performed By: #### C DP, CMPX, SED, LAC #### [facility] [address] [place] [address] Special Agent In Charge: Jacob Campos MD Lymphocytes (Bld) [#/Vol] 0.80 10*3/uL Low 1.0-4.8 [facility] Comment on above: Performed By: #### C DP, CMPX, SED, LAC #### [facility] [address] [place] [address] Special Agent In Charge: Jacob Campos MD Lymphocytes/100 WBC (Bld) 19 % Normal 15-40 [facility] Comment on above: Performed By: #### C DP, CMPX, SED, LAC #### [facility] [address] [place] [id number] Special Agent In Charge: Jacob Campos MD MCH (RBC) [Entitic mass] 30.5 pg Normal 26-34 [facility] Comment on above: Performed By: #### C DP, CMPX, SED, LAC #### [facility] [address] [place] [address] Special Agent In Charge: Jacob Campos MD MCHC (RBC) [Mass/Vol] 33.8 g/dL Normal 31-37 [facility] Comment on above: Performed By: #### C DP, CMPX, SED, LAC #### [facility] [address] [place] [address] Special Agent In Charge: Jacob Campos MD MCV (RBC) [Entitic vol] 90.4 fL Normal 80-100 [facility] Comment on above: Performed By: #### C DP, CMPX, SED, LAC #### [facility] [address] [place] [address] Special Agent In Charge: Jacob Campos MD Monocytes (Bld) [#/Vol] 0.50 10*3/uL Normal 0.0-1.0 [facility] Comment on above: Performed By: #### C DP, CMPX, SED, LAC #### [facility] [address] [place] [id number] Special Agent In Charge: Jacob Campos MD Monocytes/100 WBC (Bld) 12 % High 4-8 [facility] Comment on above: Performed By: #### C DP, CMPX, SED, LAC #### [facility] [address] [place] [address] Special Agent In Charge: Jacob Campos MD Neutrophil (Seg) 65 % Normal 47-75 [facility] Comment on above: Performed By: #### C DP, CMPX, SED, LAC #### [facility] [address] [place] [address] Special Agent In Charge: Jacob Campos MD Platelets (Bld) [#/Vol] 378 10*3/uL Normal 140-450 [facility] Comment on above: Performed By: #### C DP, CMPX, SED, LAC #### [facility] [address] [place] [address] Special Agent In Charge: Jacob Campos MD RBC (Bld) [#/Vol] 3.70 10*6/uL Low 4.0-5.2 [facility] Comment on above: Performed By: #### C DP, CMPX, SED, LAC #### [facility] [address] [place], [place] [id number] Special Agent In Charge: Jacob Campos MD WBC (Bld) [#/Vol] 4.3 10*3/uL Normal 3.5-11.0 [facility] Comment on above: Performed By: #### C DP, CMPX, SED, LAC #### [facility] [address] [place] [address] Special Agent In Charge: Jacob Campos MD Comp Metabolic Pr/rfx MGon 0 11-22-2021 (cont.) Normal [facility] Comment on above: Result Comment: Aver age GFR for 60-69 years old: 85 mL/min/1.73sq m Chronic Kidney Disease: <60 mL/min/1.73sq m Kidney failure: <15 mL/min/1.73sq m eGFR calculated using average adult body mass. Additional eGFR calculator available at: http://www.[employer]/multiple_crcl_2012.htm Performed By: #### C DP, CMPX, SED, LAC #### [facility] [address] [place], [place] [id number] Special Agent In Charge: Jacob Campos MD Albumin [Mass/Vol] 3.5 g/dL Normal 3.5-5.2 [facility] Comment on above: Performed By: #### C DP, CMPX, SED, LAC #### [facility] [address] [place] [address] Special Agent In Charge: Jacob Campos MD Alkaline Phos 239 U/L High 35-104 [facility] Comment on above: Performed By: #### C DP, CMPX, SED, LAC #### [facility] [address] [place], [place] [id number] Special Agent In Charge: Jacob Campos MD ALT [Catalytic activity/Vol] 23 U/L Normal 5-33 [facility] Comment on above: Performed By: #### C DP, CMPX, SED, LAC #### [facility] [address] [place], [place] [id number] Special Agent In Charge: Jacob Campos MD Anion gap [Moles/Vol] 11 mmol/L Normal 9-17 [facility] Comment on above: Performed By: #### C DP, CMPX, SED, LAC #### [facility] [address] [place], [place] [id number] Special Agent In Charge: Jacob Campos MD AST [Catalytic activity/Vol] 21 U/L Normal <32 [facility] Comment on above: Performed By: #### C DP, CMPX, SED, LAC #### [facility] [address] [place], [place] [id number] Special Agent In Charge: Jacob Campos MD Bilirubin [Mass/Vol] 0.27 mg/dL Low 0.30-1.20 [facility] Comment on above: Performed By: #### C DP, CMPX, SED, LAC #### [facility] [address] [place], [place] [id number] Special Agent In Charge: Jacob Campos MD BUN/CRE Ratio 22 High 9-20 [facility] Comment on above: Performed By: #### C DP, CMPX, SED, LAC #### [facility] [address] [place] [address] Special Agent In Charge: Jacob Campos MD Calcium [Mass/Vol] 9.5 mg/dL Normal 8.6-10.4 [facility] Comment on above: Performed By: #### C DP, CMPX, SED, LAC #### [facility] [address] [place], [place] [id number] Special Agent In Charge: Jacob Campos MD Chloride [Moles/Vol] 102 mmol/L Normal 98-107 [facility] Comment on above: Performed By: #### C DP, CMPX, SED, LAC #### [facility] [address] [place] [address] Special Agent In Charge: Jacob Campos MD CO2 [Moles/Vol] 26 mmol/L Normal 20-31 [facility] Comment on above: Performed By: #### C DP, CMPX, SED, LAC #### [facility] [address] [place] [address] Special Agent In Charge: Jacob Campos MD Creatinine [Mass/Vol] 0.58 mg/dL Normal 0.50-0.90 [facility] Comment on above: Performed By: #### C DP, CMPX, SED, LAC #### [facility] [address] [place], [place] [id number] Special Agent In Charge: Jacob Campos MD GFR, Amer >60 Normal >60 [facility] Comment on above: Performed By: #### C DP, CMPX, SED, LAC #### [facility] [address] [place] [address] Special Agent In Charge: Jacob Campos MD GFR,non Amer >60 Normal >60 [facility] Comment on above: Performed By: #### C DP, CMPX, SED, LAC #### [facility] [address] [place], [place] [id number] Special Agent In Charge: Jacob Campos MD Glucose [Mass/Vol] 109 mg/dL High 70-99 [facility] Comment on above: Performed By: #### C DP, CMPX, SED, LAC #### [facility] [address] [place] [id number] Special Agent In Charge: Jacob Campos MD Potassium [Moles/Vol] 3.7 mmol/L Normal 3.7-5.3 [facility] Comment on above: Performed By: #### C DP, CMPX, SED, LAC #### [facility] [address] [place] [address] Special Agent In Charge: Jacob Campos MD Protein [Mass/Vol] 7.0 g/dL Normal 6.4-8.3 [facility] Comment on above: Performed By: #### C DP, CMPX, SED, LAC #### [facility] [address] [place] [address] Special Agent In Charge: Jacob Campos MD Sodium [Moles/Vol] 139 mmol/L Normal 135-144 [facility] Comment on above: Performed By: #### C DP, CMPX, SED, LAC #### [facility] [address] [place] [id number] Special Agent In Charge: Jacob Campos MD Urea nitrogen [Mass/Vol] 13 mg/dL Normal 8-23 [facility] Comment on above: Performed By: #### C DP, CMPX, SED, LAC #### [facility] [address] [place] [id number] Special Agent In Charge: Jacob Campos MD Lactic Acidon 11-22-2021 Lactate [Moles/Vol] 0.7 mmol/L Normal 0.5-2.2 [facility] Comment on above: Performed By: #### C DP, CMPX, SED, LAC #### [facility] [address] [place], [place] [id number] Special Agent In Charge: Jacob Campos MD Sedimentation Rateon 022 Sedimentation Rate 48 mm High 0-30 [facility] Comment on above: Performed By: #### C DP, CMPX, SED, LAC #### [facility] [address] [place] [address] Special Agent In Charge: Jacob Campos MD Urinalysis, Routineon 2021 Bilirubin, SemiQt,Ur Negative Normal NEG [facility] Comment on above: Performed By: #### U A #### [facility] [address] [place] [address] Special Agent In Charge: Jacob Campos MD Blood, Urine Negative Normal NEG [facility] Comment on above: Performed By: #### U A #### [facility] [address] [place], [place] [id number] Special Agent In Charge: Jacob Campos MD Clarity (U) Clear Normal CLEAR [facility] Comment on above: Performed By: #### U A #### [facility] [address] [place], [place] [id number] Special Agent In Charge: Jacob Campos MD Color (U) Yellow Normal YEL [facility] Comment on above: Performed By: #### U A #### [facility] [address] [place], [place] [id number] Special Agent In Charge: Jacob Campos MD Comment Normal [facility] Comment on above: Performed By: #### U A #### [facility] [address] [place], [place] [id number] Special Agent In Charge: Jacob Campos MD Glucose Ql (U) Negative Normal NEG [facility] Comment on above: Performed By: #### U A #### [facility] [address] [place], [place] [id number] Special Agent In Charge: Jacob Campos MD Ketones Ql (U) Negative Normal NEG [facility] Comment on above: Performed By: #### U A #### [facility] [address] [place], [place] [id number] Special Agent In Charge: Jacob Campos MD Leukocyte esterase Test strip Ql (U) Negative Normal NEG [facility] Comment on above: Performed By: #### U A #### [facility] [address] [place], [place] [id number] Special Agent In Charge: Jacob Campos MD Nitrite,Ur Negative Normal NEG [facility] Comment on above: Performed By: #### U A #### [facility] [address] [place], [place] [id number] Special Agent In Charge: Jacob Campos MD PH,Ur 6.5 Normal 5.0-8.0 [facility] Comment on above: Performed By: #### U A #### [facility] [address] [place], [place] [id number] Special Agent In Charge: Jacob Campos MD Protein Ql (U) Negative Normal NEG [facility] Comment on above: Performed By: #### U A #### [facility] [address] [place], [place] [id number] Special Agent In Charge: Jacob Campos MD Spec. [place],Ur 1.015 Normal 1.005-1.030 [facility] Comment on above: Performed By: #### U A #### [facility] [address] [place], [place] [id number] Special Agent In Charge: Jacob Campos MD Urobilinogen,Ur Normal Normal NORM [facility] Comment on above: Performed By: #### U A #### [facility] [address] [place], [place] [id number] Special Agent In Charge: Jacob Campos MD Basic Metabolic Panelon Calcium [Mass/Vol] 9.4 mg/dL Normal 8.2-10.2 [facility] Comment on above: Performed By: #### C BC, BMP #### [facility] [address] Chloride [Moles/Vol] 101 mmol/L Normal 95-114 [facility] Comment on above: Performed By: #### C BC, BMP #### [facility] [address] CO2 [Moles/Vol] 26.3 mmol/L Normal 22.0-30.0 [facility] Comment on above: Performed By: #### C BC, BMP #### [address] Creatinine [Mass/Vol] 0.72 mg/dL Normal 0.44-1.03 [facility] Comment on above: Performed By: #### C BC, BMP #### [address] Creatinine Clr Calc Pharmacy 76.81 [facility] Comment on above: Result Comment: PERF ORMED BY: [place] [address] PATHOLOGIST [employer]ELOPER CLAIRE ANTHONY M.D. Performed By: #### C BC, BMP #### [address] Estimated GFR ( Damon > 60 [facility] Comment on above: Result Comment: GFR estimated reference range: According to KDOQI guidelines, <60 ml/min/1.73m2 is sufficient to diagnose a patient with chronic kidney disease. Performed By: #### C BC, BMP #### [address] Estimated GFR (Non- Am > 60 [facility] Comment on above: Performed By: #### C BC, BMP #### [facility] [address] [place] [address] [place] Glucose [Mass/Vol] 104 mg/dL High 70-100 [facility] Comment on above: Result Comment: [place] Glucose Reference Range is dependent on time and content of last meal. Glucose of more than 200 mg/dL in a nonstressed, ambulatory subject supports the diagnosis of Diabetes Mellitus. ADA recommended reference range Performed By: #### C BC, BMP #### [facility] [address] [place] [address] [facility] Potassium [Moles/Vol] 3.8 mmol/L Normal 3.5-5.1 [facility] Comment on above: Performed By: #### C BC, BMP #### [facility] [address] Sodium [Moles/Vol] 138 mmol/L Normal 136-146 [facility] Comment on above: Performed By: #### C BC, BMP #### [facility] [address] [place] [id number] [facility] Urea nitrogen [Mass/Vol] 13 mg/dL Normal 9-23 [facility] Comment on above: Performed By: #### C BC, BMP #### [facility] [address] [place] [id number] [facility] CBC with Diffon 11-21-2021 Abs.Imm.Granulocyte NOT REPORTED Normal 0.00-0.30 [facility] Comment on above: Performed By: #### C DP, CMPX, SED, LAC #### [facility] [address] [place], [place] [id number] Special Agent In Charge: Jacob Campos MD Immature Granulocyte NOT REPORTED Normal 0 [facility] Comment on above: Performed By: #### C DP, CMPX, SED, LAC #### [facility] [address] [place], [place] [id number] Special Agent In Charge: Jacob Campos MD MPV NOT REPORTED Normal 6.0-12.0 [facility] Comment on above: Performed By: #### C DP, CMPX, SED, LAC #### [facility] [address] [place], [place] [id number] Special Agent In Charge: Jacob Campos MD NRBC Automated NOT REPORTED Normal [facility] Comment on above: Performed By: #### C DP, CMPX, SED, LAC #### [facility] [address] [place] [address] Special Agent In Charge: Jacob Campos MD Platelet Comment NOT REPORTED Normal [facility] Comment on above: Performed By: #### C DP, CMPX, SED, LAC #### [facility] [address] [place] [address] Special Agent In Charge: Jacob Campos MD RBC morphology finding Nom (Bld) NOT REPORTED Normal [facility] Comment on above: Performed By: #### C DP, CMPX, SED, LAC #### [facility] [address] [place] [address] Special Agent In Charge: Jacob Campos MD WBC Morphology NOT REPORTED Normal [facility] Comment on above: Performed By: #### C DP, CMPX, SED, LAC #### [facility] [address] [place] [address] Special Agent In Charge: Jacob Campos MD Comp Metabolic Pr/rfx MGon 0 11-21-2021 Albumin/Glob Ratio NOT REPORTED Normal 1.0-2.5 [facility] Comment on above: Performed By: #### C DP, CMPX, SED, LAC #### [facility] [address] [place] [address] Special Agent In Charge: Jacob Campos MD Staging: NOT REPORTED Normal [facility] Comment on above: Performed By: #### C DP, CMPX, SED, LAC #### [facility] [address] [place] [address] Special Agent In Charge: Jacob Campos MD Complete Blood Count Auto Di ffon 11-21-2021 Basophils (Bld) [#/Vol] 0.0 10*3/uL Normal 0.0-0.2 [facility] Comment on above: Result Comment: PERF ORMED BY: [place] [address] PATHOLOGIST [employer]EL[employer] CLAIRE ANTHONY M.D. Performed By: #### C BC, BMP #### [address] Basophils/100 WBC (Bld) 0.7 % Normal . [facility] Comment on above: Performed By: #### C BC, BMP #### [address] Eosinophils (Bld) [#/Vol] 0.1 10*3/uL Normal 0.0-0.45 [facility] Comment on above: Performed By: #### C SANTANA, BMP #### [address] Eosinophils/100 WBC (Bld) 2.8 % Normal . [facility] Comment on above: Performed By: #### C SANTANA, BMP #### [address] Erythrocyte distribution width (RBC) [Ratio] 13.2 % Normal 11.9-15.3 [facility] Comment on above: Performed By: #### C SANTANA, BMP #### [address] Hematocrit (Bld) [Volume fraction] 35.7 % Normal 34.0-46.4 [facility] Comment on above: Performed By: #### C BC, BMP #### [address] Hemoglobin (Bld) [Mass/Vol] 11.9 g/dL Normal 11.8-15.4 [facility] Comment on above: Performed By: #### C BC, BMP #### [address] Lymphocytes (Bld) [#/Vol] 0.8 10*3/uL Low 1.00-4.8 [facility] Comment on above: Performed By: #### C BC, BMP #### [place] [address] [place] Lymphocytes/100 WBC (Bld) 16.7 % Normal . [facility] Comment on above: Performed By: #### C BC, BMP #### [facility] [address] MCH (RBC) [Entitic mass] 30.2 pg Normal 24.7-34.3 [facility] Comment on above: Performed By: #### C BC, BMP #### [facility] [address] MCV (RBC) [Entitic vol] 90.6 fL Normal 80-100 [facility] Comment on above: Performed By: #### C BC, BMP #### [address] Mean Corpuscular HGB Conc 33.3 g/dL Normal 32.0-35.0 [facility] Comment on above: Performed By: #### C BC, BMP #### [address] Monocytes (Bld) [#/Vol] 0.4 10*3/uL Normal 0.0-0.8 [facility] Comment on above: Performed By: #### C BC, BMP #### [address] Monocytes/100 WBC (Bld) 9.1 % Normal . [facility] Comment on above: Performed By: #### C BC, BMP #### [address] Neutrophils (Bld) [#/Vol] 3.4 10*3/uL Normal 1.8-7.7 [facility] Comment on above: Performed By: #### C BC, BMP #### [address] Neutrophils/100 WBC (Bld) 70.7 % Normal . [facility] Comment on above: Performed By: #### C BC, BMP #### [address] Nucleated RBC/100 WBC (Bld) [Ratio] 0.0 % Normal 0-0.5 [facility] Comment on above: Performed By: #### C BC, BMP #### [address] Platelet mean volume (Bld) [Entitic vol] 6.9 fL Normal 6.3-10.7 [facility] Comment on above: Performed By: #### C BC, BMP #### [address] Platelets (Bld) [#/Vol] 423 10*3/uL Normal 150-450 [facility] Comment on above: Performed By: #### C BC, BMP #### [address] RBC (Bld) [#/Vol] 3.94 10*6/uL Normal 3.60-5.00 [facility] Comment on above: Performed By: #### C BC, BMP #### [address] WBC (Bld) [#/Vol] 4.8 10*3/uL Normal 4.5-11.0 [facility] Comment on above: Performed By: #### C BC, BMP #### [address] Dipstick and Microscopicon 0 11-21-2021 Appearance (U) Clear Normal Clear [facility] Comment on above: Order Comment: Name Collection Type:: Clean-Voided Midstream Performed By: #### C BC, BMP #### [address] Bacteria,Urine None Seen Normal None Seen [facility] Comment on above: Order Comment: Name Collection Type:: Clean-Voided Midstream Performed By: #### C BC, BMP #### [address] Bilirubin,Urine Negative Normal Negative [facility] Comment on above: Order Comment: Name Collection Type:: Clean-Voided Midstream Performed By: #### C BC, BMP #### [address] [place] [address] [place] Color (U) Yellow Normal Yellow [facility] Comment on above: Order Comment: Name Collection Type:: Clean-Voided Midstream Performed By: #### C BC, BMP #### [address] Glucose Ql (U) Normal Normal Normal [facility] Comment on above: Order Comment: Name Collection Type:: Clean-Voided Midstream Performed By: #### C BC, BMP #### [address] Hyaline Casts,Urine 0-8 Normal 0-8 [facility] Comment on above: Order Comment: Name Collection Type:: Clean-Voided Midstream Result Comment: PERF ORMED BY: [place] [address] PATHOLOGIST [employer] DEVELOPER CLAIRE ANTHONY M.D. Performed By: #### C BC, BMP #### [address] Ketones Ql (U) Negative Normal Negative [facility] Comment on above: Order Comment: Name Collection Type:: Clean-Voided Midstream Performed By: #### C BC, BMP #### [address] Leukocyte esterase Test strip Ql (U) 1+ High Negative [facility] Comment on above: Order Comment: Name Collection Type:: Clean-Voided Midstream Performed By: #### C BC, BMP #### [place] [address] [place] Nitrite,Urine Negative Normal Negative [facility] Comment on above: Order Comment: Name Collection Type:: Clean-Voided Midstream Performed By: #### C BC, BMP #### [place] [address] [place] Occult Blood,Urine Negative Normal Negative [facility] Comment on above: Order Comment: Name Collection Type:: Clean-Voided Midstream Result Comment: PERF ORMED BY: [place] [address] PATHOLOGIST [employer] DEVELOPER CLAIRE ANTHONY M.D. Performed By: #### C BC, BMP #### [address] pH (U) 6.5 [pH] Normal 5.0-9.0 [facility] Comment on above: Order Comment: Name Collection Type:: Clean-Voided Midstream Performed By: #### C BC, BMP #### [address] Protein,Urine Negative Normal Negative [facility] Comment on above: Order Comment: Name Collection Type:: Clean-Voided Midstream Performed By: #### C BC, BMP #### [address] RBC,Urine 1-2 Normal 0-4 [facility] Comment on above: Order Comment: Name Collection Type:: Clean-Voided Midstream Performed By: #### C BC, BMP #### [address] Specificy [place],Urine 1.014 Normal 1.001-1.030 [facility] Comment on above: Order Comment: Name Collection Type:: Clean-Voided Midstream Performed By: #### C BC, BMP #### [address] Squamous Epithelial Cell,Urine None Seen Normal 0-2 [facility] Comment on above: Order Comment: Name Collection Type:: Clean-Voided Midstream Performed By: #### C BC, BMP #### [address] Urobilinogen,Urine Normal Normal Normal [facility] Comment on above: Order Comment: Name Collection Type:: Clean-Voided Midstream Performed By: #### C BC, BMP #### [address] WBC,Urine 1-2 Normal 0-4 [facility] Comment on above: Order Comment: Name Collection Type:: Clean-Voided Midstream Performed By: #### C BC, BMP #### [address] Complete Blood Count Auto Di ffon 11-04-2021 Basophils (Bld) [#/Vol] 0.0 10*3/uL Normal 0.0-0.2 [facility] Comment on above: Result Comment: PERF ORMED BY: [place] [address] PATHOLOGIST [employer]EL[employer] CLAIRE ANTHONY M.D. Performed By: #### C BC, BMP #### [address] Basophils/100 WBC (Bld) 0.1 % Normal . [facility] Comment on above: Performed By: #### C BC, BMP #### [address] Eosinophils (Bld) [#/Vol] 0.1 10*3/uL Normal 0.0-0.45 [facility] Comment on above: Performed By: #### C BC, BMP #### [address] Eosinophils/100 WBC (Bld) 1.3 % Normal . [facility] Comment on above: Performed By: #### C BC, BMP #### [address] Erythrocyte distribution width (RBC) [Ratio] 13.0 % Normal 11.9-15.3 [facility] Comment on above: Performed By: #### C BC, BMP #### [address] Hematocrit (Bld) [Volume fraction] 27.5 % Low 34.0-46.4 [facility] Comment on above: Performed By: #### C BC, BMP #### [address] Hemoglobin (Bld) [Mass/Vol] 9.3 g/dL Low 11.8-15.4 [facility] Comment on above: Performed By: #### C BC, BMP #### [address] Lymphocytes (Bld) [#/Vol] 0.5 10*3/uL Low 1.00-4.8 [facility] Comment on above: Performed By: #### C BC, BMP #### [address] Lymphocytes/100 WBC (Bld) 6.3 % Normal . [facility] Comment on above: Performed By: #### C BC, BMP #### [address] MCH (RBC) [Entitic mass] 31.1 pg Normal 24.7-34.3 [facility] Comment on above: Performed By: #### C BC, BMP #### [address] MCV (RBC) [Entitic vol] 92.0 fL Normal 80-100 [facility] Comment on above: Performed By: #### C BC, BMP #### [address] Mean Corpuscular HGB Conc 33.8 g/dL Normal 32.0-35.0 [facility] Comment on above: Performed By: #### C BC, BMP #### [address] Monocytes (Bld) [#/Vol] 0.8 10*3/uL Normal 0.0-0.8 [facility] Comment on above: Performed By: #### C BC, BMP #### [address] Monocytes/100 WBC (Bld) 10.8 % Normal . [facility] Comment on above: Performed By: #### C BC, BMP #### [address] Neutrophils (Bld) [#/Vol] 5.9 10*3/uL Normal 1.8-7.7 [facility] Comment on above: Performed By: #### C BC, BMP #### [address] Neutrophils/100 WBC (Bld) 81.5 % Normal . [facility] Comment on above: Performed By: #### C SANTANA, BMP #### [address] Nucleated RBC/100 WBC (Bld) [Ratio] 0.0 % Normal 0-0.5 [facility] Comment on above: Performed By: #### C SANTANA, BMP #### [address] Platelet mean volume (Bld) [Entitic vol] 7.4 fL Normal 6.3-10.7 [facility] Comment on above: Performed By: #### C SANTANA, BMP #### [address] Platelets (Bld) [#/Vol] 135 10*3/uL Low 150-450 [facility] Comment on above: Performed By: #### C SANTANA, BMP #### [address] RBC (Bld) [#/Vol] 2.99 10*6/uL Low 3.60-5.00 [facility] Comment on above: Performed By: #### C SANTANA, BMP #### [address] WBC (Bld) [#/Vol] 7.3 10*3/uL Normal 4.5-11.0 [facility] Comment on above: Performed By: #### C SANTANA, BMP #### [address] Electrolyteson 11-04-2021 Chloride [Moles/Vol] 106 mmol/L Normal 95-114 [facility] Comment on above: Performed By: #### C SANTANA, BMP #### [address] CO2 [Moles/Vol] 25.2 mmol/L Normal 22.0-30.0 [facility] Comment on above: Result Comment: PERF ORMED BY: [place] [address] PATHOLOGIST [employer]ELOPER CLAIRE ANTHONY M.D. Performed By: #### C BC, BMP #### [facility] [address] Potassium [Moles/Vol] 3.7 mmol/L Normal 3.5-5.1 [facility] Comment on above: Performed By: #### C BC, BMP #### [facility] [address] Sodium [Moles/Vol] 137 mmol/L Normal 136-146 [facility] Comment on above: Performed By: #### C BC, BMP #### [facility] [address] Complete Blood Count Auto Di ffon 11-03-2021 Basophils (Bld) [#/Vol] 0.0 10*3/uL Normal 0.0-0.2 [facility] Comment on above: Result Comment: PERF ORMED BY: [place] [address] PATHOLOGIST [employer]ELOPER CLAIRE ANTHONY M.D. Performed By: #### C BC, BMP #### [address] Basophils/100 WBC (Bld) 0.1 % Normal . [facility] Comment on above: Performed By: #### C BC, BMP #### [facility] [address] [place] [address] [place] Eosinophils (Bld) [#/Vol] 0.0 10*3/uL Normal 0.0-0.45 [facility] Comment on above: Performed By: #### C BC, BMP #### [facility] [address] [place] [address] [place] Eosinophils/100 WBC (Bld) 0.3 % Normal . [facility] Comment on above: Performed By: #### C BC, BMP #### [address] Erythrocyte distribution width (RBC) [Ratio] 12.8 % Normal 11.9-15.3 [facility] Comment on above: Performed By: #### C BC, BMP #### [facility] [address] Hematocrit (Bld) [Volume fraction] 29.5 % Low 34.0-46.4 [facility] Comment on above: Performed By: #### C BC, BMP #### [facility] [address] Hemoglobin (Bld) [Mass/Vol] 9.9 g/dL Low 11.8-15.4 [facility] Comment on above: Performed By: #### C BC, BMP #### [facility] [address] Lymphocytes (Bld) [#/Vol] 0.5 10*3/uL Low 1.00-4.8 [facility] Comment on above: Performed By: #### C BC, BMP #### [facility] [address] Lymphocytes/100 WBC (Bld) 7.4 % Normal . [facility] Comment on above: Performed By: #### C BC, BMP #### [facility] [address] [place] [address] [place] MCH (RBC) [Entitic mass] 30.9 pg Normal 24.7-34.3 [facility] Comment on above: Performed By: #### C BC, BMP #### [facility] [address] MCV (RBC) [Entitic vol] 92.1 fL Normal 80-100 [facility] Comment on above: Performed By: #### C BC, BMP #### [facility] [address] Mean Corpuscular HGB Conc 33.6 g/dL Normal 32.0-35.0 [facility] Comment on above: Performed By: #### C BC, BMP #### [facility] [address] Monocytes (Bld) [#/Vol] 0.7 10*3/uL Normal 0.0-0.8 [facility] Comment on above: Performed By: #### C BC, BMP #### [facility] [address] [place] [id number] [place] Monocytes/100 WBC (Bld) 10.0 % Normal . [facility] Comment on above: Performed By: #### C BC, BMP #### [facility] [address] [place] [phone] [place] Neutrophils (Bld) [#/Vol] 5.8 10*3/uL Normal 1.8-7.7 [facility] Comment on above: Performed By: #### C BC, BMP #### [facility] [address] [place] [address] [place] Neutrophils/100 WBC (Bld) 82.2 % Normal . [facility] Comment on above: Performed By: #### C BC, BMP #### [facility] [address] [place] [address] [place] Nucleated RBC/100 WBC (Bld) [Ratio] 0.0 % Normal 0-0.5 [facility] Comment on above: Performed By: #### C SANTANA, BMP #### [facility] [address] [place] [address] [place] Platelet mean volume (Bld) [Entitic vol] 8.1 fL Normal 6.3-10.7 [facility] Comment on above: Performed By: #### C BC, BMP #### [facility] [address] [place] [id number] [place] Platelets (Bld) [#/Vol] 153 10*3/uL Normal 150-450 [facility] Comment on above: Performed By: #### C BC, BMP #### [facility] [address] [place] [phone] [place] RBC (Bld) [#/Vol] 3.21 10*6/uL Low 3.60-5.00 [facility] Comment on above: Performed By: #### C BC, BMP #### [facility] [address] [place] [id number] [place] WBC (Bld) [#/Vol] 7.0 10*3/uL Normal 4.5-11.0 [facility] Comment on above: Performed By: #### C SANTANA, BMP #### [facility] [address] Electrolyteson 11-03-2021 Chloride [Moles/Vol] 104 mmol/L Normal 95-114 [facility] Comment on above: Performed By: #### C SANTANA, BMP #### [facility] [address] CO2 [Moles/Vol] 28.5 mmol/L Normal 22.0-30.0 [facility] Comment on above: Result Comment: PERF ORMED BY: [place] [address] PATHOLOGIST [employer]ELOPER CLAIRE ANTHONY M.D. Performed By: #### C SANTANA, BMP #### [address] Potassium [Moles/Vol] 4.2 mmol/L Normal 3.5-5.1 [facility] Comment on above: Performed By: #### C SANTANA, BMP #### [address] Sodium [Moles/Vol] 139 mmol/L Normal 136-146 [facility] Comment on above: Performed By: #### C SANTANA, BMP #### [address] Viet 11-02-2021 L -- ---- Specimen: [id number] Received: 11/02/21 Status: GARRETT Alejo Num: [id number] Spec Type: Surgical Subm Dr: Mary Gatica Jr, DO Tissues: A Gross Only (BONE/TISSUE RT HIP) Procedures: Level 1 Gross ---- Patient Age/Sex Location Account Attending Physician ---- Isabel Waddell 61/F 4N [id number] Mary Gatica Jr, DO ---- SPEC NUM: [id number] RECD: 11/02/21 STATUS: GARRETT ALEJO NUM: [id number] FRANCISCA: 11/02/21 [facility] [address]: Mary Gatica Jr, DO ENTERED: 11/02/[address] [facility] [address]: MARTIN TYPE: Surgical DEPT: S [...] only. (JUAN/DORA) Microscopic Description Gross examination only. [id number] ---- ---- Specimen: [id number] Received: 11/02/21 Status: GARRETT Alejo Num: [id number] Spec Type: Surgical Subm Dr: Mary Gatica Jr, DO Tissues: A Gross Only (BONE/TISSUE RT HIP) Procedures: Level 1 Gross ---- Patient: Isabel Waddell [id number] (Continued) ---- Signed (signature on file) Claire Anthony MD 11/02/21 1559 [facility] LeukoReduced RBCon LeukoReduced RBC READY [facility] Type and Screenon 11-02-2021 ABO and Rh group Nom (Bld) Blood group O Rh(D) positive [facility] Comment on above: Order Comment: Trans fuse now? N XR low pelvis w/RT x-table h ipon 11-02-2021 XR low pelvis w/RT x-table hip [facility] [place] [address] XRay Report Signed Patient: Isabel Waddell MR#: [id number] : 1960 Acct:[id number] Age/Sex: 61 / F ADM Date: 11/02/21 Loc: Room: [address] [place] [address] Type: REG 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 This test has not been FDA cleared [...] is terminated or revoked sooner. PERFORMED BY: [place] [address] PATHOLOGIST [employer] DEVELOPER CLAIRE ANTHONY M.D. Performed By: #### C , BMP #### [place] [id number] [facility] Basic Metabolic Panelon 11-2 Calcium [Mass/Vol] 9.3 mg/dL Normal 8.2-10.2 [facility] Comment on above: Result Comment: PERF ORMED BY: [address] [address] PATHOLOGIST [employer] DEVELOPER JIANLAN SUN M.D. Performed By: #### C BC, BMP #### [facility] [address] Chloride [Moles/Vol] 104 mmol/L Normal 95-114 [facility] Comment on above: Performed By: #### C BC, BMP #### [facility] [address] CO2 [Moles/Vol] 28.3 mmol/L Normal 22.0-30.0 [facility] Comment on above: Performed By: #### C BC, BMP #### [address] Creatinine [Mass/Vol] 0.61 mg/dL Normal 0.44-1.03 [facility] Comment on above: Performed By: #### C BC, BMP #### [address] Estimated GFR ( Damon > 60 [facility] Comment on above: Result Comment: GFR estimated reference range: According to KDOQI guidelines, <60 ml/min/1.73m2 is sufficient to diagnose a patient with chronic kidney disease. Performed By: #### C BC, BMP #### [address] Estimated GFR (Non- Am > 60 [facility] Comment on above: Performed By: #### C BC, BMP #### [place] [address] [place] Glucose [Mass/Vol] 100 mg/dL Normal 70-100 [facility] Comment on above: Result Comment: [place] Glucose Reference Range is dependent on time and content of last meal. Glucose of more than 200 mg/dL in a nonstressed, ambulatory subject supports the diagnosis of Diabetes Mellitus. ADA recommended reference range Performed By: #### C BC, BMP #### [address] Potassium [Moles/Vol] 4.7 mmol/L Normal 3.5-5.1 [facility] Comment on above: Performed By: #### C BC, BMP #### [address] [place] [address] [place] Sodium [Moles/Vol] 140 mmol/L Normal 136-146 [facility] Comment on above: Performed By: #### C BC, BMP #### [address] Urea nitrogen [Mass/Vol] 17 mg/dL Normal 9-23 [facility] Comment on above: Performed By: #### C BC, BMP #### [address] Complete Blood Count Auto Di ffon 10-15-2021 Basophils (Bld) [#/Vol] 0.0 10*3/uL Normal 0.0-0.2 [facility] Comment on above: Result Comment: PERF ORMED BY: [place] [address] PATHOLOGIST [employer]ELOPER CLAIRE ANTHONY M.D. Performed By: #### C SANTANA, BMP #### [address] Basophils/100 WBC (Bld) 0.4 % Normal . [facility] Comment on above: Performed By: #### C SANTANA, BMP #### [address] Eosinophils (Bld) [#/Vol] 0.1 10*3/uL Normal 0.0-0.45 [facility] Comment on above: Performed By: #### C BC, BMP #### [address] Eosinophils/100 WBC (Bld) 2.1 % Normal . [facility] Comment on above: Performed By: #### C BC, BMP #### [address] Erythrocyte distribution width (RBC) [Ratio] 13.0 % Normal 11.9-15.3 [facility] Comment on above: Performed By: #### C BC, BMP #### [address] Hematocrit (Bld) [Volume fraction] 36.8 % Normal 34.0-46.4 [facility] Comment on above: Performed By: #### C BC, BMP #### [facility] [address] Hemoglobin (Bld) [Mass/Vol] 12.4 g/dL Normal 11.8-15.4 [facility] Comment on above: Performed By: #### C BC, BMP #### [facility] [address] Lymphocytes (Bld) [#/Vol] 0.5 10*3/uL Low 1.00-4.8 [facility] Comment on above: Performed By: #### C BC, BMP #### [address] Lymphocytes/100 WBC (Bld) 18.8 % Normal . [facility] Comment on above: Performed By: #### C BC, BMP #### [address] MCH (RBC) [Entitic mass] 31.3 pg Normal 24.7-34.3 [facility] Comment on above: Performed By: #### C BC, BMP #### [address] MCV (RBC) [Entitic vol] 92.8 fL Normal 80-100 [facility] Comment on above: Performed By: #### C BC, BMP #### [address] Mean Corpuscular HGB Conc 33.7 g/dL Normal 32.0-35.0 [facility] Comment on above: Performed By: #### C BC, BMP #### [address] Monocytes (Bld) [#/Vol] 0.3 10*3/uL Normal 0.0-0.8 [facility] Comment on above: Performed By: #### C BC, BMP #### [address] Monocytes/100 WBC (Bld) 10.8 % Normal . [facility] Comment on above: Performed By: #### C BC, BMP #### [facility] [address] [place] [address] [place] Neutrophils (Bld) [#/Vol] 1.9 10*3/uL Normal 1.8-7.7 [facility] Comment on above: Performed By: #### C BC, BMP #### [facility] [address] [place] [id number] [place] Neutrophils/100 WBC (Bld) 67.9 % Normal . [facility] Comment on above: Performed By: #### C BC, BMP #### [facility] [address] [place] [address] [place] Nucleated RBC/100 WBC (Bld) [Ratio] 0.1 % Normal 0-0.5 [facility] Comment on above: Performed By: #### C BC, BMP #### [facility] [address] [place] [address] [place] Platelet mean volume (Bld) [Entitic vol] 7.4 fL Normal 6.3-10.7 [facility] Comment on above: Performed By: #### C BC, BMP #### [facility] [address] [place] [address] [place] Platelets (Bld) [#/Vol] 198 10*3/uL Normal 150-450 [facility] Comment on above: Performed By: #### C BC, BMP #### [facility] [address] [place] [address] [place] RBC (Bld) [#/Vol] 3.97 10*6/uL Normal 3.60-5.00 [facility] Comment on above: Performed By: #### C BC, BMP #### [facility] [address] [place] [address] [place] WBC (Bld) [#/Vol] 2.8 10*3/uL Low 4.5-11.0 [facility] Comment on above: Performed By: #### C BC, BMP #### [facility] [address] [place] [address] [place] Dipstick and Microscopicon 1 1 Appearance (U) Turbid Critically abnormal Clear [facility] Comment on above: Order Comment: Name Collection Type:: Clean-Voided Midstream Performed By: #### A DDONUAPLUS #### [place] [address] [place] Bacteria,Urine None Seen Normal None Seen [facility] Comment on above: Order Comment: Name Collection Type:: Clean-Voided Midstream Performed By: #### A DDONUAPLUS #### [place] [address] [place] Bilirubin,Urine Negative Normal Negative [facility] Comment on above: Order Comment: Name Collection Type:: Clean-Voided Midstream Performed By: #### A DDONUAPLUS #### [address] Color (U) Yellow Normal Yellow [facility] Comment on above: Order Comment: Name Collection Type:: Clean-Voided Midstream Performed By: #### A DDONUAPLUS #### [place] [address] [place] Glucose Ql (U) Normal Normal Normal [facility] Comment on above: Order Comment: Name Collection Type:: Clean-Voided Midstream Performed By: #### A DDONUAPLUS #### [place] [address] [place] Hyaline Casts,Urine None Seen Normal 0-8 [facility] Comment on above: Order Comment: Name Collection Type:: Clean-Voided Midstream Result Comment: PERF ORMED BY: [place] [address] PATHOLOGIST [employer]ELOPER CLAIRE ANTHONY M.D. Performed By: #### A DDONUAPLUS #### [place] [address] [place] Ketones Ql (U) Negative Normal Negative [facility] Comment on above: Order Comment: Name Collection Type:: Clean-Voided Midstream Performed By: #### A DDONUAPLUS #### [address] Leukocyte esterase Test strip Ql (U) 1+ High Negative [facility] Comment on above: Order Comment: Name Collection Type:: Clean-Voided Midstream Performed By: #### A DDONUAPLUS #### [address] Nitrite,Urine Negative Normal Negative [facility] Comment on above: Order Comment: Name Collection Type:: Clean-Voided Midstream Performed By: #### A DDONUAPLUS #### [address] Occult Blood,Urine Negative Normal Negative [facility] Comment on above: Order Comment: Name Collection Type:: Clean-Voided Midstream Result Comment: PERF ORMED BY: [place] [address] PATHOLOGIST [employer] DEVELOPER CLAIRE ANTHONY M.D. Performed By: #### A DDONUAPLUS #### [address] pH (U) 7.5 [pH] Normal 5.0-9.0 [facility] Comment on above: Order Comment: Name Collection Type:: Clean-Voided Midstream Performed By: #### A DDONUAPLUS #### [address] Protein,Urine Negative Normal Negative [facility] Comment on above: Order Comment: Name Collection Type:: Clean-Voided Midstream Performed By: #### A DDONUAPLUS #### [address] RBC,Urine 1-2 Normal 0-4 [facility] Comment on above: Order Comment: Name Collection Type:: Clean-Voided Midstream Performed By: #### A DDONUAPLUS #### [address] Specificy [place],Urine 1.017 Normal 1.001-1.030 [facility] Comment on above: Order Comment: Name Collection Type:: Clean-Voided Midstream Performed By: #### A DDONUAPLUS #### [facility] [address] [place] [address] Squamous Epithelial Cell,Urine None Seen Normal 0-2 [facility] Comment on above: Order Comment: Name Collection Type:: Clean-Voided Midstream Performed By: #### A DDONUAPLUS #### [facility] [address] [place] [address] Urobilinogen,Urine Normal Normal Normal [facility] Comment on above: Order Comment: Name Collection Type:: Clean-Voided Midstream Performed By: #### A DDONUAPLUS #### [facility] [address] [place] [address] WBC,Urine 3-4 Normal 0-4 [facility] Comment on above: Order Comment: Name Collection Type:: Clean-Voided Midstream Performed By: #### A DDONUAPLUS #### [facility] [address] [place] [address] PST Type and Screenon 2020 ABO and Rh group Nom (Bld) Blood group O Rh(D) positive Normal [facility] Comment on above: Order Comment: Date of Surgery: 20211102 # of PRBC units on hold?: 2 Result Comment: PERF ORMED BY: [place] [address] PATHOLOGIST [employer]ELOPER CLAIRE ANTHONY M.D. XR hip RT min 2V(w/wo pelvis )*on 10-15-2021 XR hip RT min 2V(w/wo pelvis)* [facility] [place] [address] XRay Report Signed Patient: Isabel Waddell MR#: [id number] : 1960 Acct:[id number] Age/Sex: 61 / F ADM Date: 10/15/21 Loc: PS Room: Type: [facility] Attending Dr: Mary Gatica Jr, DO Ordering [...] Yusef Fernandez M.D.10/15/2021 2:21 PM Dictation Location: [place] [address] Transcribed By: [facility] 10/15/21 142 Dictated By: Yusef Fernandez DO 10/15/21 1420 Signed By: 10/15/21 1421 Normal [facility] XR tibia/fibula BIon 021 XR tibia/fibula BI [facility] [place] [address] XRay Report Signed Patient: Isabel Waddell MR#: [id number] : 1960 Acct:[id number] Age/Sex: 61 / F ADM Date: 08/22/21 Loc: X Room: Type: [facility] Attending Dr: Mary Gatica Jr, DO Ordering Provider: Mary Gatica Jr, DO Date of Service: 08/22/21 XR/XR femur BI: PST ([id number]) XR/XR tibia/fibula BI: PST Copies to: Mary Gatica Jr, DO BILATERAL TIB-FIB AND FEMUR [...] Mckayla Rai M.D.08/22/2021 3:17 PM Dictation Location: [place] [address] Transcribed By: [facility] 08/22/211516 Dictated By: Mckayla Rai MD 08/22/211512 Signed By: 08/22/211516 Normal [facility] Basic Metabolic Panelon 10-0 Calcium [Mass/Vol] 9.1 mg/dL Normal 8.2-10.2 [facility] Comment on above: Result Comment: PERF ORMED BY: [place] [address] PATHOLOGIST [employer] DEVELOPER CLAIRE ANTHONY M.D. Performed By: #### C BC, BMP #### [address] Chloride [Moles/Vol] 102 mmol/L Normal 95-114 [facility] Comment on above: Performed By: #### C BC, BMP #### [address] CO2 [Moles/Vol] 27.8 mmol/L Normal 22.0-30.0 [facility] Comment on above: Performed By: #### C BC, BMP #### [address] Creatinine [Mass/Vol] 0.63 mg/dL Normal 0.44-1.03 [facility] Comment on above: Performed By: #### C BC, BMP #### [facility] [address] [place] [address] [place] Estimated GFR ( Damon > 60 [facility] Comment on above: Result Comment: GFR estimated reference range: According to KDOQI guidelines, <60 ml/min/1.73m2 is sufficient to diagnose a patient with chronic kidney disease. Performed By: #### C BC, BMP #### [place] [address] [place] Estimated GFR (Non- Am > 60 [facility] Comment on above: Performed By: #### C BC, BMP #### [address] Glucose [Mass/Vol] 101 mg/dL High 70-100 [facility] Comment on above: Result Comment: [facility] Glucose Reference Range is dependent on time and content of last meal. Glucose of more than 200 mg/dL in a nonstressed, ambulatory subject supports the diagnosis of Diabetes Mellitus. ADA recommended reference range Performed By: #### C BC, BMP #### [address] Potassium [Moles/Vol] 4.2 mmol/L Normal 3.5-5.1 [facility] Comment on above: Performed By: #### C BC, BMP #### [address] Sodium [Moles/Vol] 138 mmol/L Normal 136-146 [facility] Comment on above: Performed By: #### C BC, BMP #### [address] Urea nitrogen [Mass/Vol] 18 mg/dL Normal 9-23 [facility] Comment on above: Performed By: #### C BC, BMP #### [address] Complete Blood Count Auto Di ffon 08-20-2021 Basophils (Bld) [#/Vol] 0.0 10*3/uL Normal 0.0-0.2 [facility] Comment on above: Result Comment: PERF ORMED BY: [place] [address] PATHOLOGIST [employer]ELOPER CLAIRE ANTHONY M.D. Performed By: #### C BC, BMP #### [address] Basophils/100 WBC (Bld) 0.1 % Normal . [facility] Comment on above: Performed By: #### C BC, BMP #### [address] Eosinophils (Bld) [#/Vol] 0.1 10*3/uL Normal 0.0-0.45 [facility] Comment on above: Performed By: #### C BC, BMP #### [facility] [address] Eosinophils/100 WBC (Bld) 2.5 % Normal . [facility] Comment on above: Performed By: #### C BC, BMP #### [facility] [address] Erythrocyte distribution width (RBC) [Ratio] 13.6 % Normal 11.9-15.3 [facility] Comment on above: Performed By: #### C BC, BMP #### [address] Hematocrit (Bld) [Volume fraction] 34.5 % Normal 34.0-46.4 [facility] Comment on above: Performed By: #### C BC, BMP #### [address] Hemoglobin (Bld) [Mass/Vol] 11.9 g/dL Normal 11.8-15.4 [facility] Comment on above: Performed By: #### C BC, BMP #### [address] Lymphocytes (Bld) [#/Vol] 0.6 10*3/uL Low 1.00-4.8 [facility] Comment on above: Performed By: #### C BC, BMP #### [place] [address] [place] Lymphocytes/100 WBC (Bld) 15.9 % Normal . [facility] Comment on above: Performed By: #### C BC, BMP #### [facility] [address] [place] [address] [place] MCH (RBC) [Entitic mass] 31.3 pg Normal 24.7-34.3 [facility] Comment on above: Performed By: #### C BC, BMP #### [address] MCV (RBC) [Entitic vol] 90.5 fL Normal 80-100 [facility] Comment on above: Performed By: #### C BC, BMP #### [facility] [address] [place] [phone] [place] Mean Corpuscular HGB Conc 34.6 g/dL Normal 32.0-35.0 [facility] Comment on above: Performed By: #### C BC, BMP #### [facility] [address] [place] [phone] [place] Monocytes (Bld) [#/Vol] 0.5 10*3/uL Normal 0.0-0.8 [facility] Comment on above: Performed By: #### C BC, BMP #### [facility] [address] [place] [address] [place] Monocytes/100 WBC (Bld) 13.2 % Normal . [facility] Comment on above: Performed By: #### C BC, BMP #### [facility] [address] [place] [address] [place] Neutrophils (Bld) [#/Vol] 2.7 10*3/uL Normal 1.8-7.7 [facility] Comment on above: Performed By: #### C BC, BMP #### [facility] [address] [place] [phone] [place] Neutrophils/100 WBC (Bld) 68.3 % Normal . [facility] Comment on above: Performed By: #### C BC, BMP #### [facility] [address] [place] [phone] [place] Nucleated RBC/100 WBC (Bld) [Ratio] 0.1 % Normal 0-0.5 [facility] Comment on above: Performed By: #### C BC, BMP #### [facility] [address] [place] [phone] [place] Platelet mean volume (Bld) [Entitic vol] 7.8 fL Normal 6.3-10.7 [facility] Comment on above: Performed By: #### C BC, BMP #### [facility] [address] [place] [phone] [place] Platelets (Bld) [#/Vol] 182 10*3/uL Normal 150-450 [facility] Comment on above: Performed By: #### C BC, BMP #### [facility] [address] [place] [address] [place] RBC (Bld) [#/Vol] 3.81 10*6/uL Normal 3.60-5.00 [facility] Comment on above: Performed By: #### C BC, BMP #### [facility] [address] WBC (Bld) [#/Vol] 4.0 10*3/uL Low 4.5-11.0 [facility] Comment on above: Performed By: #### C BC, BMP #### [address] Dipstick and Microscopicon 1 Appearance (U) Turbid Critically abnormal Clear [facility] Comment on above: Order Comment: Comme nt urine C S if indicated by UA Name Collection Type:: Clean-Voided Midstream Performed By: #### A DDONUAPLUS #### [facility] [address] [place] [address] Bacteria,Urine None Seen Normal None Seen [facility] Comment on above: Order Comment: Comme nt urine C S if indicated by UA Name Collection Type:: Clean-Voided Midstream Performed By: #### A DDONUAPLUS #### [facility] [address] [place] [address] Bilirubin,Urine Negative Normal Negative [facility] Comment on above: Order Comment: Comme nt urine C S if indicated by UA Name Collection Type:: Clean-Voided Midstream Performed By: #### A DDONUAPLUS #### [facility] [address] [place] [address] Color (U) Yellow Normal Yellow [facility] Comment on above: Order Comment: Comme nt urine C S if indicated by UA Name Collection Type:: Clean-Voided Midstream Performed By: #### A DDONUAPLUS #### [facility] [address] [place] [address] [place] Glucose Ql (U) Normal Normal Normal [facility] Comment on above: Order Comment: Comme nt urine C S if indicated by UA Name Collection Type:: Clean-Voided Midstream Performed By: #### A DDONUAPLUS #### [facility] [address] [place] [address] Hyaline Casts,Urine 0-8 Normal 0-8 [facility] Comment on above: Order Comment: Comme nt urine C S if indicated by UA Name Collection Type:: Clean-Voided Midstream Result Comment: PERF ORMED BY: [place] [address] PATHOLOGIST [employer]ELOPER CLAIRE ANTHONY M.D. Performed By: #### A DDONUAPLUS #### [address] Ketones Ql (U) Negative Normal Negative [facility] Comment on above: Order Comment: Comme nt urine C S if indicated by UA Name Collection Type:: Clean-Voided Midstream Performed By: #### A DDONUAPLUS #### [address] Leukocyte esterase Test strip Ql (U) 3+ High Negative [facility] Comment on above: Order Comment: Comme nt urine C S if indicated by UA Name Collection Type:: Clean-Voided Midstream Performed By: #### A DDONUAPLUS #### [address] Nitrite,Urine Negative Normal Negative [facility] Comment on above: Order Comment: Comme nt urine C S if indicated by UA Name Collection Type:: Clean-Voided Midstream Performed By: #### A DDONUAPLUS #### [address] Occult Blood,Urine Negative Normal Negative [facility] Comment on above: Order Comment: Comme nt urine C S if indicated by UA Name Collection Type:: Clean-Voided Midstream Result Comment: PERF ORMED BY: [place] [address] PATHOLOGIST [employer] DEVELOPER CLAIRE ANTHONY M.D. Performed By: #### A DDONUAPLUS #### [address] pH (U) 8.5 [pH] Normal 5.0-9.0 [facility] Comment on above: Order Comment: Comme nt urine C S if indicated by UA Name Collection Type:: Clean-Voided Midstream Performed By: #### A DDONUAPLUS #### [address] Protein,Urine Negative Normal Negative [facility] Comment on above: Order Comment: Comme nt urine C S if indicated by UA Name Collection Type:: Clean-Voided Midstream Performed By: #### A DDONUAPLUS #### [address] RBC,Urine 3-4 Normal 0-4 [facility] Comment on above: Order Comment: Comme nt urine C S if indicated by UA Name Collection Type:: Clean-Voided Midstream Performed By: #### A DDONUAPLUS #### [address] Specificy [place],Urine 1.016 Normal 1.001-1.030 [facility] Comment on above: Order Comment: Comme nt urine C S if indicated by UA Name Collection Type:: Clean-Voided Midstream Performed By: #### A DDONUAPLUS #### [address] Squamous Epithelial Cell,Urine 0-1 Normal 0-2 [facility] Comment on above: Order Comment: Comme nt urine C S if indicated by UA Name Collection Type:: Clean-Voided Midstream Performed By: #### A DDONUAPLUS #### [address] Urobilinogen,Urine Normal Normal Normal [facility] Comment on above: Order Comment: Comme nt urine C S if indicated by UA Name Collection Type:: Clean-Voided Midstream Performed By: #### A DDONUAPLUS #### [address] WBC,Urine 20-49 High 0-4 [facility] Comment on above: Order Comment: Comme nt urine C S if indicated by UA Name Collection Type:: Clean-Voided Midstream Performed By: #### A DDONUAPLUS #### [facility] [address] [place] [address] ECG 12 lead ECGon 08-20-2021 ECG 12 lead ECG [facility] [place] [address] [place] [address] Electrocardiograph Report Signed Patient: Isabel Waddell MR#: [id number] : 1960 Acct:[id number] Age/Sex: 61 / F ADM Date: 08/20/21 Loc: Room: Type: [facility] Attending Dr: Mary Gatica Jr, DO Ordering [...] When compared with ECG of 06-SEP-2020 08:27, ND interval has decreased T wave amplitude has increased in Inferior leads Confirmed by YUSEF GIRALDO DO ([id number]) on 08/20/2021 4:50:03 PM Referred By: LAURA Electronically Signed By:YUSEF GIRALDO DO Transcribed By: MUS Signed By Yusef Giraldo DO 08/20 1650 Normal [facility] PST Type and Screenon 2020 ABO and Rh group Nom (Bld) Blood group O Rh(D) positive [facility] Comment on above: Order Comment: Date of Surgery: 20210906 # of PRBC units on hold?: 2 Result Comment: PERF ORMED BY: [place] [address] PATHOLOGIST [employer] DEVELOPER CLAIRE ANTHONY M.D. Urine Cultureon 08-20-2021 Bacteria identified Cx Nom (U) Comment do C S if indicated by UA ORGANISM: Staphylococcus aureus (O:STAAUR) Ducor Count 30,000 Aerobic MARELY Charge (PC45) --- [...] RESISTANT TO ALL B-LACTAM DRUGS. PERFORMED BY: [place] [address] PATHOLOGIST [employer] DEVELOPER CLAIRE ANTHONY M.D. [facility] Comment on above: Performed By: #### C UU #### [address] Cult,Urineon 07-08-2021 Cult,Urine Specimen Description .URINE Special Requests NOT REPORTED Culture NO SIGNIFICANT GROWTH Report Status FINAL 07/08/2021 [facility] Comment on above: Performed By: #### U RC #### [facility] Why Not Give Back [address] [place] [address] Special Agent In Charge: Rei Jules MD [facility] [address] [place] [address] Special Agent In Charge: Jacob Campos MD CBC Auto DifferentialOrdered By: Mayra Michel on 07-07-2021 [employer] # 0.70 High [employer] Work Phone: Absolute Immature Granulocyte NOT REPORTED [email or web address] Work Phone: Absolute Lymph # 0.40 Low [employer] Work Phone: Absolute [place] # 0.50 [employer] Work Phone: Basophils (Bld) [#/Vol] 0.00 10*3/uL [email or web address] Work Phone: Basophils/100 WBC (Bld) 1 % 0 - 2 % [email or web address] Work Phone: Differential Type YES [facility] Work Phone: Eosinophils/100 WBC (Bld) 14 % High 0 - 5 % [email or web address] Work Phone: Hematocrit (Bld) [Volume fraction] 40.1 % 36 - 46 % [email or web address] Work Phone: Hemoglobin.gastrointes tinal spec 1 Ql (Stl) 13.8 g/dL 12.0 - 16.0 g/dL [email or web address] Work Phone: Immature Granulocytes NOT REPORTED 0 % [employer] Work Phone: Interpretation and review of laboratory results Abnormal [employer] Phone: Lymphocytes/100 WBC (Bld) 8 % Low 15 - 40 % [email or web address] Work Phone: MCH (RBC) [Entitic mass] 30.7 pg 26 - 34 pg [email or web address] Work Phone: MCHC (RBC) [Mass/Vol] 34.5 g/dL 31 - 37 g/dL [employer] Work Phone: MCV (RBC) [Entitic vol] 89.1 fL 80 - 100 fL [email or web address] Work Phone: Monocytes/100 WBC (Bld) 10 % High 4 - 8 % [employer] Phone: NRBC Automated NOT REPORTED per 100 WBC [employer] [facility] Work Phone: Platelet distribution width (Bld) [Ratio] 13.0 % 12.1 - 15.2 % [employer] Phone: Platelet Estimate NOT REPORTED [employer] Phone: Platelet mean volume (Bld) [Entitic vol] NOT REPORTED 6.0 - 12.0 fL [employer] Phone: Platelets (Bld) [#/Vol] 157 10*3/uL [employer] Phone: RBC (Bld) [#/Vol] 4.50 10*6/uL 4.0 - 5.2 m/uL [employer] Phone: RBC (Bld) [#/Vol] NOT REPORTED [employer] Phone: Segmented neutrophils/100 WBC (Bld) 67 % 47 - 75 % [employer] Phone: Segs Absolute 3.40 [employer] Work Phone: WBC (Bld) [#/Vol] 5.1 10*3/uL [employer] Phone: WBC (Bld) [#/Vol] NOT REPORTED [employer] Phone: [employer] Phone: CBC with Diffon 07-07-2021 Abs. Basophil 0.00 k/uL Normal 0.0-0.2 [facility] Comment on above: Performed By: #### C JODY PAPPAS #### [facility] [address] [place] [address] Special Agent In Charge: Jacob Campos MD Abs.Neutrophil (Seg) 3.40 k/uL Normal 2.5-7.0 [facility] Comment on above: Performed By: #### C DP, CP #### [facility] [address] [place] [address] Special Agent In Charge: Jacob Campos MD Auto Diff Performed YES Normal [facility] Comment on above: Performed By: #### C DP, CP #### [facility] [address] [place] [address] Special Agent In Charge: Jacob Campos MD Basophils/100 WBC (Bld) 1 % Normal 0-2 [facility] Comment on above: Performed By: #### C DP, CP #### [facility] [address] [place] [address] Special Agent In Charge: Jacob Campos MD Eosinophils (Bld) [#/Vol] 0.70 10*3/uL High 0.0-0.4 [facility] Comment on above: Performed By: #### C DP, CP #### [facility] [address] [place] [address] Special Agent In Charge: Jacob Campos MD Eosinophils/100 WBC (Bld) 14 % High 0-5 [facility] Comment on above: Performed By: #### C DP, CP #### [facility] [address] [place] [address] Special Agent In Charge: Jacob Campos MD Erythrocyte distribution width (RBC) [Ratio] 13.0 % Normal 12.1-15.2 [facility] Comment on above: Performed By: #### C DP, CP #### [facility] [address] [place] [address] Special Agent In Charge: Jacob Campos MD Hematocrit (Bld) [Volume fraction] 40.1 % Normal 36-46 [facility] Comment on above: Performed By: #### C DP, CP #### [facility] [address] [place] [address] Special Agent In Charge: Jacob Campos MD Hemoglobin (Bld) [Mass/Vol] 13.8 g/dL Normal 12.0-16.0 [facility] Comment on above: Performed By: #### C DP, CP #### [facility] [address] [place], [place] [id number] Special Agent In Charge: Jacob Campos MD Lymphocytes (Bld) [#/Vol] 0.40 10*3/uL Low 1.0-4.8 [facility] Comment on above: Performed By: #### C DP, CP #### [facility] [address] [place] [address] Special Agent In Charge: Jacob Campos MD Lymphocytes/100 WBC (Bld) 8 % Low 15-40 [facility] Comment on above: Performed By: #### C DP, CP #### [facility] [address] [place] [address] Special Agent In Charge: Jacob Campos MD MCH (RBC) [Entitic mass] 30.7 pg Normal 26-34 [facility] Comment on above: Performed By: #### C DP, CP #### [facility] [address] [place] [address] Special Agent In Charge: Jaocb Campos MD MCHC (RBC) [Mass/Vol] 34.5 g/dL Normal 31-37 [facility] Comment on above: Performed By: #### C DP, CP #### [facility] [address] [place] [address] Special Agent In Charge: Jacob Campos MD MCV (RBC) [Entitic vol] 89.1 fL Normal 80-100 [facility] Comment on above: Performed By: #### C DP, CP #### [facility] [address] [place] [address] Special Agent In Charge: Jacob Campos MD Monocytes (Bld) [#/Vol] 0.50 10*3/uL Normal 0.0-1.0 [facility] Comment on above: Performed By: #### C DP, CP #### [facility] [address] [place] [address] (357) Special Agent In Charge: Jacob Campos MD Monocytes/100 WBC (Bld) 10 % High 4-8 [facility] Comment on above: Performed By: #### C DP, CP #### [facility] [address] [place] [address] (173) Special Agent In Charge: Jacob Campos MD Neutrophil (Seg) 67 % Normal 47-75 [facility] Comment on above: Performed By: #### C DP, CP #### [facility] [address] [place] [address] (131) Special Agent In Charge: Jacob Campos MD Platelets (Bld) [#/Vol] 157 10*3/uL Normal 140-450 [facility] Comment on above: Performed By: #### C DP, CP #### [facility] [address] [place] [address] (327) Special Agent In Charge: Jacob Campos MD RBC (Bld) [#/Vol] 4.50 10*6/uL Normal 4.0-5.2 [facility] Comment on above: Performed By: #### C DP, CP #### [facility] [address] [place] [address] (650) Special Agent In Charge: Jacob Campos MD WBC (Bld) [#/Vol] 5.1 10*3/uL Normal 3.5-11.0 [facility] Comment on above: Performed By: #### C DP, CP #### [facility] [address] [place] [address] (086) Special Agent In Charge: Jacob Campos MD Abs.Imm.Granulocyte NOT REPORTED Normal 0.00-0.30 [facility] Comment on above: Performed By: #### C DP, CP #### [facility] [address] [place], [place] [id number] Special Agent In Charge: Jacob Campos MD Immature Granulocyte NOT REPORTED Normal 0 [facility] Comment on above: Performed By: #### C DP, CP #### [facility] [address] [place], [place] 8289990 Special Agent In Charge: Jacob Campos MD MPV NOT REPORTED Normal 6.0-12.0 [facility] Comment on above: Performed By: #### C DP, CP #### [facility] [address] [place], [place] [id number] Special Agent In Charge: Jacob Campos MD NRBC Automated NOT REPORTED Normal [facility] Comment on above: Performed By: #### C DP, CP #### [facility] [address] [place], [place] [id number] Special Agent In Charge: Jacob Campos MD Platelet Estimate NOT REPORTED Normal [facility] Comment on above: Performed By: #### C DP, CP #### [facility] [address] [place], [place] [id number] Special Agent In Charge: Jacob Campos MD RBC morphology finding Nom (Bld) NOT REPORTED Normal [facility] Comment on above: Performed By: #### C DP, CP #### [facility] [address] [place], [place] [id number] Special Agent In Charge: Jacob Campos MD WBC Morphology NOT REPORTED Normal [facility] Comment on above: Performed By: #### C DP, CP #### [facility] [address] [place] [address] Special Agent In Charge: Jacob Campos MD Comp Metabolic Profon 2020 (cont.) Normal [facility] Comment on above: Result Comment: Aver age GFR for 60-69 years old: 85 mL/min/1.73sq m Chronic Kidney Disease: <60 mL/min/1.73sq m Kidney failure: <15 mL/min/1.73sq m eGFR calculated using average adult body mass. Additional eGFR calculator available at: http://www.[employer]1 Labs/multiple_crcl_2012.htm Performed By: #### C DP, CP #### [facility] [address] [place], [place] 3088290 Special Agent In Charge: Jacob Campos MD Albumin [Mass/Vol] 3.9 g/dL Normal 3.5-5.2 [facility] Comment on above: Performed By: #### C DP, CP #### [facility] [address] [place], [place] 5825790 Special Agent In Charge: Jacob Campos MD Alkaline Phos 94 U/L Normal 35-104 [facility] Comment on above: Performed By: #### C DP, CP #### [facility] [address] [place], [place] 1338690 Special Agent In Charge: Jacob Campos MD ALT [Catalytic activity/Vol] 31 U/L Normal 5-33 [facility] Comment on above: Performed By: #### C DP, CP #### [facility] [address] [place], [place] 1729590 Special Agent In Charge: Jacob Campos MD Anion gap [Moles/Vol] 10 mmol/L Normal 9-17 [facility] Comment on above: Performed By: #### C DP, CP #### [facility] [address] [place], [place] 6524590 Special Agent In Charge: Jacob Campos MD AST [Catalytic activity/Vol] 28 U/L Normal <32 [facility] Comment on above: Performed By: #### C DP, CP #### [facility] [address] [place], [place] 5961790 Special Agent In Charge: Jacob Campos MD Bilirubin [Mass/Vol] 0.46 mg/dL Normal 0.30-1.20 [facility] Comment on above: Performed By: #### C DP, CP #### [facility] [address] [place], [place] 7148490 Special Agent In Charge: Jacob Campos MD BUN/CRE Ratio 27 High 9-20 [facility] Comment on above: Performed By: #### C DP, CP #### [facility] [address] [place], [place] 1617190 Special Agent In Charge: Jacob Campos MD Calcium [Mass/Vol] 9.7 mg/dL Normal 8.6-10.4 [facility] Comment on above: Performed By: #### C DP, CP #### [facility] [address] [place], [place] 9988490 Special Agent In Charge: Jacob Campos MD Chloride [Moles/Vol] 107 mmol/L Normal 98-107 [facility] Comment on above: Performed By: #### C DP, CP #### [facility] [address] [place], [place] 0354190 Special Agent In Charge: Jacob Campos MD CO2 [Moles/Vol] 25 mmol/L Normal 20-31 [facility] Comment on above: Performed By: #### C DP, CP #### [facility] [address] [place], [place] 1863890 Special Agent In Charge: Jacob Campos MD Creatinine [Mass/Vol] 0.60 mg/dL Normal 0.50-0.90 [facility] Comment on above: Performed By: #### C DP, CP #### [facility] [address] [place], [place] 4116090 Special Agent In Charge: Jacob Campos MD GFR, Amer >60 Normal >60 [facility] Comment on above: Performed By: #### C DP, CP #### [facility] [address] [place], [place] 6584890 Special Agent In Charge: Jacob Campos MD GFR,non Amer >60 Normal >60 [facility] Comment on above: Performed By: #### C DP, CP #### [facility] [address] [place], [place] 4692390 Special Agent In Charge: Jacob Campos MD Glucose [Mass/Vol] 122 mg/dL High 70-99 [facility] Comment on above: Performed By: #### C DP, CP #### [facility] [address] [place], [place] 8627890 Special Agent In Charge: Jacob Campos MD Potassium [Moles/Vol] 3.8 mmol/L Normal 3.7-5.3 [facility] Comment on above: Performed By: #### C DP, CP #### [facility] [address] [place], [place] 2563090 Special Agent In Charge: Jacob Campos MD Protein [Mass/Vol] 6.9 g/dL Normal 6.4-8.3 [facility] Comment on above: Performed By: #### C DP, CP #### [facility] [address] [place], [place] 7419190 Special Agent In Charge: Jacob Campos MD Sodium [Moles/Vol] 142 mmol/L Normal 135-144 [facility] Comment on above: Performed By: #### C DP, CP #### [facility] [address] [place], [place] 1578490 Special Agent In Charge: Jacob Campos MD Urea nitrogen [Mass/Vol] 16 mg/dL Normal 8-23 [facility] Comment on above: Performed By: #### C DP, CP #### [facility] [address] [place] [address] Special Agent In Charge: Jacob Campos MD Albumin/Glob Ratio NOT REPORTED Normal 1.0-2.5 [facility] Comment on above: Performed By: #### C DP, CP #### [facility] [address] [place], [place] 5158390 Special Agent In Charge: Jacob Campos MD Staging: NOT REPORTED Normal [facility] Comment on above: Performed By: #### C DP, CP #### [facility] [address] [place] [address] Special Agent In Charge: Jacob Campos MD Comprehensive Metabolic Pane lOrdered By: Mayra Michel on 07-07-2021 Albumin [Mass/Vol] 3.9 g/dL 3.5 - 5.2 g/dL [facility] Phone: Albumin/Globulin Ratio NOT REPORTED [facility] [employer] Phone: ALP (Bld) [Catalytic activity/Vol] 94 U/L 35 - 104 U/L [facility] Phone: ALT [Catalytic activity/Vol] 31 U/L 5 - 33 U/L [facility] Phone: Anion gap [Moles/Vol] 10 mmol/L 9 - 17 mmol/L [facility] Phone: AST [Catalytic activity/Vol] 28 U/L <32 [employer] Phone: Bilirubin [Mass/Vol] 0.46 mg/dL 0.30 - 1.20 mg/dL [facility] Phone: Calcium [Mass/Vol] 9.7 mg/dL 8.6 - 10. 4 mg/dL [facility] Phone: Chloride [Moles/Vol] 107 mmol/L 98 - 10 7 mmol/L [facility] Phone: CO2 [Moles/Vol] 25 mmol/L 20 - 31 mmol/L [facility] Phone: Creatinine [Mass/Vol] 0.6 mg/dL 0.50 - 0.90 mg/dL [facility] Phone: Free PSA/Total PSA [Mass fraction] 6.9 g/dL 6.4 - 8.3 g/dL [facility] Phone: GFR >60 >60 mL/min [employer] Phone: GFR Non- >60 >60 mL/min [employer] Phone: GFR/1.73 sq M.predicted MDRD (S/P/Bld) [Vol rate/Area] [employer] Phone: Comment on above: Average GFR for 60-6 9 years old: 85 mL/min/1.73sq m Chronic Kidney Disease: <60 mL/min/1.73sq m Kidney failure: <15 mL/min/1.73sq m eGFR calculated using average adult body mass. Additional eGFR calculator available at: http://www.[employer]/BAROnova_crcl_2012.htm GFR/1.73 sq M.predicted MDRD (S/P/Bld) [Vol rate/Area] NOT REPORTED [employer] Phone: Glucose [Mass/Vol] 122 mg/dL High 70 - 99 mg/dL [employer] Phone: Interpretation and review of laboratory results Abnormal [employer] Phone: Potassium [Moles/Vol] 3.8 mmol/L 3.7 - 5.3 mmol/L [employer] Phone: Sodium [Moles/Vol] 142 mmol/L 135 - 144 mmol/L [employer] Phone: Urea nitrogen (BldV) [Mass/Vol] 16 mg/dL 8 - 23 mg/dL [employer] Phone: Urea nitrogen/Creatinine (Bld) [Mass ratio] 27 High [employer] Phone: [employer] Phone: Microscopic UrinalysisOrdere d By: Mayra Michel on 07-07-2021 - [email or web address] Work Phone: Amorphous, UA NOT REPORTED None [employer] Work Phone: Bacteria, UA 2+ Abnormal None [facility] Work Phone: Casts UA NOT REPORTED /LPF [facility] Work Phone: Crystals, UA NOT REPORTED None /HPF [facility] Work Phone: Epithelial Cells UA 5 TO 10 /HPF [facility] Work Phone: Interpretation and review of laboratory results Abnormal [facility] Work Phone: Mucus, UA 1+ Abnormal None [facility] Work Phone: Other Observations UA NOT REPORTED NOT REQ. M [facility] Work Phone: RBC, UA 5 TO 10 [facility] Work Phone: Renal Epithelial, UA NOT REPORTED 0 /HPF [facility] Work Phone: Trichomonas, UA NOT REPORTED None [facility] [employer] Work Phone: WBC, UA 2 TO 5 0 /HPF [facility] Work Phone: Yeast, UA NOT REPORTED None [facility] Work Phone: [facility] Work Phone: UrinalysisOrdered By: Olamide Michel on 07-07-2021 Bilirubin Urine Negative NEGATIVE [facility] Work Phone: Color, UA YELLOW YELLOW [facility] Work Phone: Glucose, Ur Negative NEGATIVE [facility] Work Phone: Interpretation and review of laboratory results Abnormal [facility] Work Phone: Ketones Ql (U) Negative NEGATIVE [facility] Work Phone: Leukocyte esterase Test strip Ql (U) 1+ Abnormal NEGATIVE [facility] Work Phone: Nitrite, Urine Negative NEGATIVE [facility] Work Phone: pH, UA 6.0 [employer] Phone: Protein, UA TRACE Abnormal NEGATIVE [facility] [employer] Phone: Specific [place], UA 1.020 [employer] Phone: Turbidity UA CLEAR CLEAR [facility] [employer] [facility] Phone: Urinalysis Comments [facility] Phone: Urine Hgb TRACE Abnormal NEGATIVE [facility] [employer] [facility] Phone: Urobilinogen, Urine Normal Normal [facility] [employer] [facility] Phone: [facility] Phone: Urinalysis, Routineon 2020 Bilirubin, SemiQt,Ur Negative Normal NEG [facility] Comment on above: Performed By: #### U MICAO, UA #### [facility] [address] [place] [address] Special Agent In Charge: Jacob Campos MD Blood, Urine TRACE Abnormal NEG [facility] Comment on above: Performed By: #### U MICAO, UA #### [facility] [address] [facility] [place] [address] Special Agent In Charge: Jacob Campos MD Clarity (U) CLEAR Normal CLEAR [facility] Comment on above: Performed By: #### U MICAO, UA #### [facility] [address] [place] [address] Special Agent In Charge: Jacob Campos MD Color (U) YELLOW Normal YEL [facility] Comment on above: Performed By: #### U MICAO, UA #### [facility] [address] [place] [address] Special Agent In Charge: Jacob Campos MD Comment Normal [facility] Comment on above: Performed By: #### U MICAO, UA #### [facility] [address] [place] [address] Special Agent In Charge: Jacob Campos MD Glucose Ql (U) Negative Normal NEG [facility] Comment on above: Performed By: #### U MICAO, UA #### [facility] [address] [place], [place] [id number] Special Agent In Charge: Jacob Campos MD Ketones Ql (U) Negative Normal NEG [facility] Comment on above: Performed By: #### U MICAO, UA #### [facility] [address] [place] [address] Special Agent In Charge: Jacob Campos MD Leukocyte esterase Test strip Ql (U) 1+ Abnormal NEG [facility] Comment on above: Performed By: #### U MICAO, UA #### [facility] [address] [place] [address] Special Agent In Charge: Jacob Campos MD Nitrite,Ur Negative Normal NEG [facility] Comment on above: Performed By: #### U MICAO, UA #### [facility] [address] [place] [address] Special Agent In Charge: Jacob Campos MD PH,Ur 6.0 Normal 5.0-8.0 [facility] Comment on above: Performed By: #### U MICAO, UA #### [facility] [address] [place] [address] Special Agent In Charge: Jacob Campos MD Protein Ql (U) TRACE Abnormal NEG [facility] Comment on above: Performed By: #### U MICAO, UA #### [facility] [address] [facility] [address] Special Agent In Charge: Jacob Campos MD Spec. [place],Ur 1.020 Normal 1.005-1.030 [facility] Comment on above: Performed By: #### U MICAO, UA #### [facility] [address] [place] [address] Special Agent In Charge: Jacob Campos MD Urobilinogen,Ur Normal Normal NORM [facility] Comment on above: Performed By: #### U EULALIAO, UA #### [facility] [address] [place], [place] 0756090 Special Agent In Charge: Jacob Campos MD Urinalysis,Microon 1 ----- Normal [facility] Comment on above: Performed By: #### U MICAO, UA #### [facility] [address] [place], [place] 4478690 Special Agent In Charge: Jacob Campos MD Bacteria 2+ Abnormal NONE [facility] Comment on above: Performed By: #### U MICAO, UA #### [facility] [address] [place], [place] 2793690 Special Agent In Charge: Jacob Campos MD Epithelial cells LM Ql (Urine sed) 5 TO 10 Normal [facility] Comment on above: Performed By: #### U MICAO, UA #### [facility] [address] [place], [place] 7295290 Special Agent In Charge: Jacob Campos MD Mucus Strands 1+ Abnormal NONE [facility] Comment on above: Performed By: #### U MICAO, UA #### [facility] [address] [place], [place] 0191690 Special Agent In Charge: Jacob Campos MD Urine RBC's 5 TO 10 Normal 0-2 [facility] Comment on above: Performed By: #### U MICAO, UA #### [facility] [address] [place], [place] 6910790 Special Agent In Charge: Jacob Campos MD Urine WBC's 2 TO 5 Normal 0 [facility] Comment on above: Performed By: #### U MICAO, UA #### [facility] [address] [place], [place] 5080990 Special Agent In Charge: Jacob Campos MD Amorphous sediment LM Ql (Urine sed) NOT REPORTED Normal NONE [facility] Comment on above: Performed By: #### U EULALIAO, UA #### [facility] [address] [place] [address] Special Agent In Charge: Jacob Campos MD Casts NOT REPORTED Normal [facility] Comment on above: Performed By: #### U EULALIAO, UA #### [facility] [address] [place], [place] 0299190 Special Agent In Charge: Jacob Campos MD Crystals LM Nom (Urine sed) NOT REPORTED Normal NONE [facility] Comment on above: Performed By: #### U EULALIAO, UA #### [facility] [address] [place], [place] 3834190 Special Agent In Charge: Jacob Campos MD Epithelial, Renal NOT REPORTED Normal 0 [facility] Comment on above: Performed By: #### U EULALIAO, UA #### [facility] [address] [place], [place] 0344690 Special Agent In Charge: Jacob Campos MD Other Observations NOT REPORTED Normal NREQ [facility] Comment on above: Performed By: #### U EULALIAO, UA #### [facility] [address] [place], [place] 7620790 Special Agent In Charge: Jacob Campos MD Trichomonas NOT REPORTED Normal NONE [facility] Comment on above: Performed By: #### U EULALIAO, UA #### [facility] [address] [place], [place] 4361890 Special Agent In Charge: Jacob Campos MD Yeast NOT REPORTED Normal NONE [facility] Comment on above: Performed By: #### U EULALIAO, UA #### [facility] [address] [place], [place] 0757390 Special Agent In Charge: Jacob Campos MD XR hand RT min 3V*on 021 XR hand RT min 3V* [facility] Main [place] [id number] XRay Report Signed Patient: Isabel Waddell MR#: [id number] : 1960 Acct:[id number] Age/Sex: 60 / F ADM Date: 03/28/21 Loc: SOXD Room: Type: [facility] Attending Dr: Sona Hurst MD Ordering Provider: [...] Mckayla Rai M.D.03/28/2021 1:26 PM Dictation Location: [place] [address] Transcribed By: [facility] 03/28/21 1326 Dictated By: Mckayla Rai MD 03/28/21 1321 Signed By: 03/28/21 1326 [facility] BIOAVAILABLE TESTOSTERONE FE MALE, CHILDon 11-29-2019 Albumin [Mass/Vol] 4.3 g/dL Normal 3.6-5.1 [facility] [place] Comment on above: Result Comment: Age and [...] be regarded as investigational or for research. [facility][NOTE 3] is qualified to perform high complexity testing under the Clinical Laboratory Improvement Amendments (CLIA). Test performed at [facility] [address] [place] [address], [address], [address] [place] [address] [employer] Operator: Adi Barksdale M.D. CLIA Number [id number] CAP Accreditation Number [id number] ------- [facility] [address] [place] [address] CLIA No. [id number] CAP Accreditation No. [id number] [employer] Operator: Isiah Burr M.D. Performed By: #### 1 000, 4500, 4510, 4520, 70400, 5000, 78885, 11679 #### [facility] Unless Otherwise Noted [address] [place] [address] / COLA #4724/CLIA # [id number] SEX HORM BINDING GLOBULIN 56.3 nmol/L Normal 17.3-125.0 [facility] Comment on above: Performed By: #### 1 000, 4500, 4510, 4520, 10474, 5000, 59900, 90749 #### [facility] Unless Otherwise Noted [address] [place] [address] / COLA #4724/CLIA # [id number] TESTOSTERONE BIO FEMALE 2.9 ng/dL Normal 1.5-9.4 [facility] Comment on above: Performed By: #### 1 000, 4500, 4510, 4520, 88557, 5000, 03866, 43351 #### [facility] Unless Otherwise Noted [address] [address] / COLA #4724/CLIA # [id number] TESTOSTERONE FREE FEMALE 1.3 pg/mL Normal 0.6-3.8 [facility] Comment on above: Performed By: #### 1 000, 4500, 4510, 4520, 43906, 5000, 39989, 59105 #### [facility] Unless Otherwise Noted [address] [place], [place] [address] / COLA #4724/CLIA # [id number] TESTOSTERONE, ULTRASENSITIVE 10 ng/dL Normal 9-55 [facility] Comment on above: Performed By: #### 1 000, 4500, 4510, 4520, 36552, 0736, 00715, 29965 #### [facility] Unless Otherwise Noted [address] [place] [address] / COLA #4724/CLIA # [id number] ADRENOCORTICOTROPIC HORMon 0 - ADRENOCORTICOTROPIC HORM 18.1 PG/ML Normal 7.2-63.3 [facility] Comment on above: Result Comment: Reference range established for normal adult patients, morning blood draw (7-10 AM). Certain synthetic ACTH fragments may interfere with this assay. Test performed at [facility] [address] [place] [address] CLIA Number [id number] CAP Accreditation Number [id number] ------- Performed By: #### 1 000, 4500, 4510, 4520, 54360, 5000, 22480, 15362 #### [facility] Unless Otherwise Noted [address] [place] [address] / COLA #4724/CLIA # [id number] IGF-1on 11-27-2019 IGF-1 151 NG/ML Normal 43-187 [facility] Comment on above: Result Comment: Test performed at [facility] [address] [place] [address] CLIA Number [id number] [facility] Accreditation Number [id number] ------- Performed By: #### 1 000, 4500, 4510, 4520, 30949, 5000, 84194, 44927 #### [facility] Unless Otherwise Noted [address] [place] [address] / COLA #4724/CLIA # [id number] CORTISOL [place] 11-26-2019 CORTISOL AM 8.6 UG/DL Normal 4.5-22.7 [facility] Comment on above: Performed By: #### 1 000, 4500, 4510, 4520, 92763, 5000, 98791, 07215 #### [facility] [place] Unless Otherwise Noted [address] [address] / COLA #4724/CLIA # [id number] FSHon 11-26-2019 FSH 26.30 mlU/mL Normal [facility] Comment on above: Result Comment: REFE RENCE RANGES FOR FEMALES: OVULATING FEMALE: FOLLICULAR PHASE 1.98-11.6 PEAK 5.14-23.4 LUTEAL PHASE 1.38-9.58 POSTMENOPAUSAL FEMALE 21.5-131 Performed By: #### 4 530, 4540, 4550, 4577 #### [facility] Unless Otherwise Noted [address] [address] / COLA #4724/CLIA # [id number] LHon 11-26-2019 LH 23.00 mIU/ml Normal [facility] Comment on above: Result Comment: REFE RENCE RANGES FOR FEMALE: OVULATING FEMALE: FOLLICULAR PHASE 2.58-12.1 PEAK 27.3-96.9 LUTEAL PHASE 0.83-15.5 POSTMENOPAUSAL FEMALE 13.1-86.5 Performed By: #### 4 530, 4540, 4550, 0931 #### [facility] Unless Otherwise Noted [address] [address] / COLA #4724/CLIA # [id number] PROLACTINon 11-26-2019 PROLACTIN 17.3 ng/ml Normal 2.1-47.6 [facility] Comment on above: Result Comment: IVELISSE ENOPAUSAL FEMALE 2.1 - 47.6 POSTMENOPAUSAL FEMALE 0.0 - 41.4 Performed By: #### 1 000, 4500, 4510, 4520, 46759, 5000, 13321, 16436 #### [facility] Unless Otherwise Noted [address] [address] / COLA #4724/CLIA # [id number] CBC W/AUTO DIFFon 11-25-2019 ABS BASOPHILS 0.0 X10E9/L Normal 0-0.9 [facility] Comment on above: Result Comment: Perf ormed at [facility] [address] [facility] [address] Performed By: #### 1 000, 4500, 4510, 4520, 07151, 5000, 39390, 32988 #### [facility] Unless Otherwise Noted [address] [address] / COLA #4724/CLIA # [id number] ABS NEUTROPHILS 2.6 X10E9/L Normal 1.5-6.6 Endocrin [facility] Diabetes [facility] Comment on above: Performed By: #### 1 000, 4500, 4510, 4520, 00810, 5000, 31680, 19667 #### Endocrine [facility] Diabetes [facility] Unless Otherwise Noted [address] [address] / COLA #4724/CLIA # [id number] Basophils/100 WBC (Bld) 0.6 % Normal [facility] Comment on above: Performed By: #### 1 000, 4500, 4510, 4520, 45761, 5000, 50475, 70357 #### [facility] and Diabetes [facility] Unless Otherwise Noted [address] [address] / COLA #4724/CLIA # [id number] Eosinophils (Bld) [#/Vol] 0.2 10*3/uL Normal 0.0-0.4 [facility] Comment on above: Performed By: #### 1 000, 4500, 4510, 4520, 57733, 5000, 19197, 33815 #### [facility] and Diabetes [facility] Unless Otherwise Noted [address] / COLA #4724/CLIA # [id number] Eosinophils/100 WBC (Bld) 3.1 % Normal [facility] Comment on above: Performed By: #### 1 000, 4500, 4510, 4520, 47396, 5000, 20407, 04038 #### [facility] and Diabetes [facility] Unless Otherwise Noted [address] [address] / COLA #4724/CLIA # [id number] Erythrocyte distribution width (RBC) [Ratio] 13.3 % Normal 11.5-14.7 [facility] Comment on above: Performed By: #### 1 000, 4500, 4510, 4520, 85429, 5000, 69034, 77509 #### [facility] and Diabetes [facility] Unless Otherwise Noted [address] [address] / COLA #4724/CLIA # [id number] Hematocrit (Bld) [Volume fraction] 39.4 % Normal 35-47 [facility] Comment on above: Performed By: #### 1 000, 4500, 4510, 4520, 59447, 5000, 55803, 31420 #### [facility] and Diabetes [facility] Unless Otherwise Noted [address] [place] [address] / COLA #4724/CLIA # [id number] Hemoglobin (Bld) [Mass/Vol] 13.3 g/dL Normal 11.7-16.0 [facility] Comment on above: Performed By: #### 1 000, 4500, 4510, 4520, 65537, 5000, 65469, 17755 #### [facility] and Diabetes [facility] Unless Otherwise Noted [address] [address] / COLA #4724/CLIA # [id number] Lymphocytes (Bld) [#/Vol] 1.8 10*3/uL Normal 1.0-3.5 [facility] Comment on above: Performed By: #### 1 000, 4500, 4510, 4520, 84341, 5000, 14871, 09482 #### [facility] and [facility] Unless Otherwise Noted [address] [address] / COLA #4724/CLIA # [id number] Lymphocytes/100 WBC (Bld) 35.0 % Normal [facility] Comment on above: Performed By: #### 1 000, 4500, 4510, 4520, 68525, 5000, 01711, 69751 #### [facility] Unless Otherwise Noted [address] [address] / COLA #4724/CLIA # [id number] MCH (RBC) [Entitic mass] 31.2 pg Normal 26-33.5 [facility] Comment on above: Performed By: #### 1 000, 4500, 4510, 4520, 14752, 5000, 63493, 68887 #### [facility] Unless Otherwise Noted [address] [place] [address] / COLA #4724/CLIA # [id number] MCHC (RBC) [Mass/Vol] 33.7 g/dL Normal 32-36 [facility] Comment on above: Performed By: #### 1 000, 4500, 4510, 4520, 50876, 5000, 13986, 43288 #### [facility] and [facility] Unless Otherwise Noted [address] [address] / COLA #4724/CLIA # [id number] MCV (RBC) [Entitic vol] 93 fL Normal 81-100 [facility] Comment on above: Performed By: #### 1 000, 4500, 4510, 4520, 43481, 5000, 97200, 25384 #### [facility] and [facility] Unless Otherwise Noted [address] [address] / COLA #4724/CLIA # [id number] Monocytes (Bld) [#/Vol] 0.5 10*3/uL Normal 0-0.9 [facility] Comment on above: Performed By: #### 1 000, 4500, 4510, 4520, 17111, 5000, 92266, 17072 #### [facility] Unless Otherwise Noted [address] [address] / COLA #4724/CLIA # [id number] Monocytes/100 WBC (Bld) 10.0 % Normal [facility] Comment on above: Performed By: #### 1 000, 4500, 4510, 4520, 18374, 5000, 59820, 48514 #### [facility] Unless Otherwise Noted [address] [place] [address] / COLA #4724/CLIA # [id number] Neutrophils/100 WBC (Bld) 51.3 % Normal [facility] Comment on above: Performed By: #### 1 000, 4500, 4510, 4520, 59576, 5000, 27644, 49888 #### [facility] Unless Otherwise Noted [address] [place] [address] / COLA #4724/CLIA # [id number] Platelet mean volume (Bld) [Entitic vol] 8.8 fL Normal 7-12 [facility] Comment on above: Performed By: #### 1 000, 4500, 4510, 4520, 48521, 5000, 37322, 33119 #### [facility] Unless Otherwise Noted [address] [address] / COLA #4724/CLIA # [id number] Platelets (Bld) [#/Vol] 225 10*3/uL Normal 150-450 [facility] Comment on above: Performed By: #### 1 000, 4500, 4510, 4520, 55501, 5000, 61278, 24748 #### [facility] [place] [facility] Unless Otherwise Noted [address] [address] / COLA #4724/CLIA # [id number] RBC (Bld) [#/Vol] 4.25 X10E12/L Normal 3.80-5.20 [facility] Comment on above: Performed By: #### 1 000, 4500, 4510, 4520, 49451, 5000, 16345, 34208 #### [facility]ocrine [facility] Diabetes [facility] Unless Otherwise Noted [address] [place] [address] / COLA #4724/CLIA # [id number] WBC (Bld) [#/Vol] 5.1 10*3/uL Normal 4.8-10.8 [facility] Comment on above: Performed By: #### 1 000, 4500, 4510, 4520, 86051, 5000, 50304, 46429 #### [facility] Unless Otherwise Noted [address] [place] [address] / COLA #4724/CLIA # [id number] [facility] 11-25-2019 Albumin [Mass/Vol] 4.2 g/dL Normal 3.5-5.0 [facility] Comment on above: Performed By: #### 1 000, 4500, 4510, 4520, 77375, 5000, 42658, 79160 #### [facility] Unless Otherwise Noted [address] [place] [address] / COLA #4724/CLIA # [id number] ALP [Catalytic activity/Vol] 103.0 U/L Normal 38.0-126.0 [facility] Diabetes [facility] Comment on above: Performed By: #### 1 000, 4500, 4510, 4520, 34012, 5000, 05361, 11974 #### [facility] Unless Otherwise Noted [address] [place] [address] / COLA #4724/CLIA # [id number] ALT [Catalytic activity/Vol] 62.0 U/L Normal 13.0-69.0 [facility] Diabetes [facility] Comment on above: Performed By: #### 1 000, 4500, 4510, 4520, 75542, 5000, 39768, 68673 #### [facility] Unless Otherwise Noted [address] [place], [place] [address] / COLA #4724/CLIA # [id number] Anion gap [Moles/Vol] 4.0 mmol/L Low 10.0-15.0 [facility] Diabetes [facility] Comment on above: Performed By: #### 1 000, 4500, 4510, 4520, 71137, 5000, 17452, 33534 #### [facility] Unless Otherwise Noted [address] [place], [place] [address] / COLA #4724/CLIA # [id number] AST [Catalytic activity/Vol] 30.0 U/L Normal 15.0-46.0 [facility] Diabetes [facility] Comment on above: Performed By: #### 1 000, 4500, 4510, 4520, 24181, 5000, 15339, 48605 #### [facility] Unless Otherwise Noted [address] [place] [address] / COLA #4724/CLIA # [id number] Bilirubin Ql (U) 0.50 mg/dL Normal 0.20-1.30 [facility] Comment on above: Performed By: #### 1 000, 4500, 4510, 4520, 38925, 5000, 78095, 55439 #### [facility] Unless Otherwise Noted [address] [address] / COLA #4724/CLIA # [id number] BUN/Cre Ratio 32.9 Ratio High 7.0-27.0 [facility] Comment on above: Performed By: #### 1 000, 4500, 4510, 4520, 09266, 5000, 07381, 62531 #### [facility] Unless Otherwise Noted [address] [address] / COLA #4724/CLIA # [id number] Calcium [Mass/Vol] 9.5 mg/dL Normal 8.4-10.2 Endocr [facility] [place] Comment on above: Performed By: #### 1 000, 4500, 4510, 4520, 55765, 5000, 31670, 26113 #### [facility] Unless Otherwise Noted [address] [place] [address] / COLA #4724/CLIA # [id number] Chloride [Moles/Vol] 102.0 mmol/L Normal 98.0-107.0 [facility] Comment on above: Performed By: #### 1 000, 4500, 4510, 4520, 97220, 5000, 58098, 17685 #### [facility] Unless Otherwise Noted [address] [address] / COLA #4724/CLIA # [id number] CO2 [Moles/Vol] 31.0 mmol/L High 22.0-30.0 [facility] Comment on above: Performed By: #### 1 000, 4500, 4510, 4520, 00530, 5000, 05425, 19600 #### [facility] Unless Otherwise Noted [address] [place] [address] / COLA #4724/CLIA # [id number] Creatinine [Mass/Vol] 0.7 mg/dL Normal 0.5-1.0 [facility] Diabetes [facility] Comment on above: Performed By: #### 1 000, 4500, 4510, 4520, 31370, 5000, 29217, 42684 #### [facility] Unless Otherwise Noted [address] [place] [address] / COLA #4724/CLIA # [id number] GFR/1.73 sq M predicted among blacks MDRD (S/P/Bld) [Vol rate/Area] 110.1 ml/m1.73 Normal [facility] Diabetes [facility] Comment on above: Performed By: #### 1 000, 4500, 4510, 4520, 68708, 5000, 14666, 65364 #### [facility] Unless Otherwise Noted [address] [place] [address] / COLA #4724/CLIA # [id number] GFR/1.73 sq M predicted among non-blacks MDRD (S/P/Bld) [Vol rate/Area] 91.0 ml/m1.73 Normal [facility] Diabetes [facility] Comment on above: Performed By: #### 1 000, 4500, 4510, 4520, 22810, 5000, 81604, 91892 #### [facility] Unless Otherwise Noted [address] [place] [address] / COLA #4724/CLIA # [id number] GFR/1.73 sq M predicted among non-blacks MDRD (S/P/Bld) [Vol rate/Area] 96.2 ml/m1.73 Normal [facility] Comment on above: Performed By: #### 1 000, 4500, 4510, 4520, 52375, 5000, 12339, 87514 #### [facility]ocrine and [facility] Unless Otherwise Noted [address] [place] [address] / COLA #4724/CLIA # [id number] Glucose [Mass/Vol] 109.0 mg/dL High 74.0-106.0 [facility] Comment on above: Performed By: #### 1 000, 4500, 4510, 4520, 44671, 5000, 15651, 22452 #### [facility]ocrine and [facility] Unless Otherwise Noted [address] [place] [address] / COLA #4724/CLIA # [id number] Potassium [Moles/Vol] 4.3 mmol/L Normal 3.5-5.1 [facility] Comment on above: Performed By: #### 1 000, 4500, 4510, 4520, 71596, 5000, 01955, 26688 #### [facility] Unless Otherwise Noted [address] [place] [address] / COLA #4724/CLIA # [id number] Protein [Mass/Vol] 6.8 g/dL Normal 6.3-8.2 [facility] Comment on above: Performed By: #### 1 000, 4500, 4510, 4520, 18676, 5000, 55022, 40354 #### Endocrine and [facility] Unless Otherwise Noted [address] [place] [address] / COLA #4724/CLIA # [id number] Sodium [Moles/Vol] 137.0 mmol/L Normal 137.0-145.0 [facility] Comment on above: Performed By: #### 1 000, 4500, 4510, 4520, 97744, 5000, 66711, 58869 #### [facility] Unless Otherwise Noted [address] [address] / COLA #4724/CLIA # [id number] Urea nitrogen [Mass/Vol] 23.0 mg/dL High 7.0-17.0 [facility] Diabetes [facility] Comment on above: Performed By: #### 1 000, 4500, 4510, 4520, 53484, 5000, 09040, 26748 #### [facility] [place] Unless Otherwise Noted [address] [address] / COLA #4724/CLIA # [id number] FT3on 11-25-2019 FT3 4.39 pg/mL Normal 2.71-6.16 [facility] Diabetes [facility] Comment on above: Performed By: #### 1 000, 4500, 4510, 4520, 54135, 5000, 44168, 48762 #### [facility] and Diabetes [facility] Unless Otherwise Noted [address] [address] / COLA #4724/CLIA # [id number] FT4on 11-25-2019 Free T4 [Mass/Vol] 0.95 ng/dL Normal 0.64-1.79 Endocr [facility] Diabetes [facility] Comment on above: Performed By: #### 1 000, 4500, 4510, 4520, 67682, 5000, 97023, 56717 #### [facility] Unless Otherwise Noted [address] [address] / COLA #4724/CLIA # [id number] TSHon 11-25-2019 TSH Qn 0.35 uIU/ml Low 0.47-4.68 [facility] Comment on above: Performed By: #### 1 000, 4500, 4510, 4520, 93841, 5000, 64521, 00702 #### [facility] Unless Otherwise Noted [address] [place], [place] [address] / MERLY #4724/CLIA # [id number] Vital Signs Date Time Vital Sign Value Performing Clinician Facility 09-29-2023 10:33-0500 Body height 167.6 cm South Saba DO Work Phone: [facility] 09-29-2023 10:33-0500 Body weight 62.14 kg South Jayant DO Work Phone: [facility] 09-12-2023 10:00-0400 Body height 167.64 cm Roland Ball Other [employer] Other 09-12-2023 10:00-0400 Body mass index (BMI) [Ratio] 23.05 kg/m2 Roland Ball Other [employer] Other 09-12-2023 10:00-0400 Body weight 64.77 kg Roland Ball Other [employer] Other 09-12-2023 10:00-0400 Diastolic blood pressure 75 mm[Hg] Roland Ball Other [employer] Other 09-12-2023 10:00-0400 Respiratory rate 12 /min Roland Ball Other [employer] Other 09-12-2023 10:00-0400 Systolic blood pressure 131 mm[Hg] Roland Ball Other [employer] Other 08-29-2023 10:55-0400 Body height 167.6 cm Elder Galan APRN.DYE LINE OPERATOR Work Phone: [facility] 08-29-2023 10:55-0400 Body temperature 98.01 [degF] Elder Angelia MILK INSPECTOR.DYE LINE OPERATOR Work Phone: [facility] 08-29-2023 10:55-0400 Body weight 66.68 kg Elder Angelia MILK INSPECTOR.DYE LINE OPERATOR Work Phone: [facility] 08-29-2023 10:55-0400 Diastolic blood pressure 78 mm[Hg] Elder Angelia MILK INSPECTOR.DYE LINE OPERATOR Work Phone: [facility] 08-29-2023 10:55-0400 Heart rate 82 /min Elder Angelia MILK INSPECTOR.DYE LINE OPERATOR Work Phone: [facility] 08-29-2023 10:55-0400 SaO2% (BldA) [Mass fraction] 99 % Elder Angelia MILK INSPECTOR.DYE LINE OPERATOR Work Phone: [facility] 08-29-2023 10:55-0400 Systolic blood pressure 163 mm[Hg] Elder Angelia MILK INSPECTOR.DYE LINE OPERATOR Work Phone: [facility] 08-29-2023 10:03-0400 Body temperature 98.01 [degF] Heidi Hatfield MD Work Phone: [facility] 08-29-2023 10:03-0400 Body weight 66.68 kg Heidi Hatfield MD Work Phone: [facility] 08-29-2023 10:03-0400 Diastolic blood pressure 77 mm[Hg] Heidi Hatfield MD Work Phone: [facility] 08-29-2023 10:03-0400 Heart rate 82 /min Heidi Hatfield MD Work Phone: [facility] 08-29-2023 10:03-0400 Respiratory rate 16 /min Heidi Hatfield MD Work Phone: [facility] 08-29-2023 10:03-0400 SaO2% (BldA) [Mass fraction] 99 % Heidi Hatfield MD Work Phone: [facility] 08-29-2023 10:03-0400 Systolic blood pressure 157 mm[Hg] Heidi Hatfield MD Work Phone: [facility] 07-04-2023 09:18-0400 Body height 167.6 cm South Jayant DO Work Phone: [facility] 07-04-2023 09:18-0400 Body temperature 97.59 [degF] South Jayant DO Work Phone: [facility] 07-04-2023 09:18-0400 Body weight 66.5 kg South Jayant DO Work Phone: [facility] 07-04-2023 09:18-0400 Diastolic blood pressure 68 mm[Hg] South Jayant DO Work Phone: [facility] 07-04-2023 09:18-0400 Heart rate 73 /min South Jayant DO Work Phone: [facility] 07-04-2023 09:18-0400 SaO2% (BldA) [Mass fraction] 100 % South Jayant DO Work Phone: [facility] 07-04-2023 09:18-0400 Systolic blood pressure 139 mm[Hg] South Jayant DO Work Phone: [facility] 06-27-2023 10:30-0400 Body temperature 97.39 [degF] Heidi Hatfield MD Work Phone: [facility] 06-27-2023 10:30-0400 Body weight 69.4 kg Heidi Hatfield MD Work Phone: [facility] 06-27-2023 10:30-0400 Diastolic blood pressure 76 mm[Hg] Heidi Hatfield MD Work Phone: [facility] 06-27-2023 10:30-0400 Heart rate 70 /min Heidi Hatfield MD Work Phone: [facility] 06-27-2023 10:30-0400 Respiratory rate 16 /min Heidi Hatfield MD Work Phone: [facility] 06-27-2023 10:30-0400 SaO2% (BldA) [Mass fraction] 97 % Heidi Hatfield MD Work Phone: [facility] 06-27-2023 10:30-0400 Systolic blood pressure 141 mm[Hg] Heidi Hatfield MD Work Phone: [facility] 05-23-2023 09:45-0400 Body height 167.64 cm Roland Ball Other [employer] Other 05-23-2023 09:45-0400 Body mass index (BMI) [Ratio] 24.79 kg/m2 Roland Ball Other [employer] Other 05-23-2023 09:45-0400 Body weight 69.67 kg Roland Ball Other [employer] Other 05-23-2023 09:45-0400 Diastolic blood pressure 78 mm[Hg] Roland Ball Other [employer] Other 05-23-2023 09:45-0400 Respiratory rate 12 /min Roland Ball Other [employer] Other 05-23-2023 09:45-0400 Systolic blood pressure 158 mm[Hg] Roland Ball Other [employer] Other 04-23-2023 13:30-0400 Body height 167.64 cm Roland Ball Other [employer] Other 04-23-2023 13:30-0400 Body mass index (BMI) [Ratio] 24.34 kg/m2 Roland Ball Other [employer] Other 04-23-2023 13:30-0400 Body weight 68.4 kg Roland Ball Other [employer] Other 04-23-2023 13:30-0400 Diastolic blood pressure 74 mm[Hg] Roland Ball Other [employer] Other 04-23-2023 13:30-0400 Respiratory rate 12 /min Roland Ball Other [employer] Other 04-23-2023 13:30-0400 Systolic blood pressure 131 mm[Hg] Roland Ball Other [employer] Other 03-05-2023 09:30-0400 Body height 167.6 cm Juan Manuel Pack MILK INSPECTOR.DYE LINE OPERATOR Work Phone: [facility] 03-05-2023 09:30-0400 Body weight 70.22 kg Juan Manuel Pack MILK INSPECTOR.DYE LINE OPERATOR Work Phone: [facility] 03-05-2023 09:30-0400 Diastolic blood pressure 90 mm[Hg] Juan Manuel Pack MILK INSPECTOR.DYE LINE OPERATOR Work Phone: [facility] 03-05-2023 09:30-0400 Heart rate 85 /min Juan Manuel Pack MILK INSPECTOR.DYE LINE OPERATOR Work Phone: [facility] 03-05-2023 09:30-0400 Systolic blood pressure 152 mm[Hg] Juan Manuel Pack MILK INSPECTOR.DYE LINE OPERATOR Work Phone: [facility] 01-24-2023 08:45-0500 Body height 167.64 cm Roland Ball Other [employer] Other 01-24-2023 08:45-0500 Body mass index (BMI) [Ratio] 24.05 kg/m2 Roland Ball Other [employer] Other 01-24-2023 08:45-0500 Body temperature 96.7 [degF] Roland Ball Other [employer] Other 01-24-2023 08:45-0500 Body weight 67.59 kg Roland Ball Other [employer] Other 01-24-2023 08:45-0500 Diastolic blood pressure 93 mm[Hg] Roland Ball Other [employer] Other 01-24-2023 08:45-0500 Systolic blood pressure 165 mm[Hg] Roland Ball Other [employer] Other 01-20-2023 13:35-0500 Body height 167.64 cm Olya Sanjuanita Other [employer] Other 01-20-2023 13:35-0500 Body mass index (BMI) [Ratio] 24.53 kg/m2 Olya Sanjuanita Other [employer] Other 01-20-2023 13:35-0500 Body temperature 97.3 [degF] Olya Sanjuanita Other [employer] Other 01-20-2023 13:35-0500 Body weight 68.95 kg Olya Gann Other [employer] Other 01-20-2023 13:35-0500 Respiratory rate 18 /min Olya Gann Other [employer] Other 01-20-2023 13:35-0500 SaO2% (BldA) [Mass fraction] 95 % Olya Gann Other [employer] Other 01-03-2023 15:27-0500 Body height 167.6 cm Henry Ramos MD Work Phone: [facility] 01-03-2023 15:27-0500 Body temperature 97.81 [degF] Henry Ramos MD Work Phone: [facility] 01-03-2023 15:27-0500 Body weight 71.17 kg Henry Ramos MD Work Phone: [facility] 01-03-2023 15:27-0500 Diastolic blood pressure 87 mm[Hg] Henry Ramos MD Work Phone: [facility] 01-03-2023 15:27-0500 Heart rate 95 /min Henry Ramos MD Work Phone: [facility] 01-03-2023 15:27-0500 SaO2% (BldA) [Mass fraction] 99 % Henry Ramos MD Work Phone: [facility] 01-03-2023 15:27-0500 Systolic blood pressure 141 mm[Hg] Henry Ramos MD Work Phone: [facility] 09-26-2022 12:30-0500 Diastolic blood pressure 89 mm[Hg] Leila Alamo MD Work Phone: [facility] 09-26-2022 12:30-0500 Heart rate 79 /min Leila Alamo MD Work Phone: [facility] 09-26-2022 12:30-0500 Respiratory rate 18 /min Leila Alamo MD Work Phone: [facility] 09-26-2022 12:30-0500 SaO2% (BldA) [Mass fraction] 98 % Leila Alamo MD Work Phone: [facility] 09-26-2022 12:30-0500 Systolic blood pressure 140 mm[Hg] Leila Alamo MD Work Phone: [facility] 09-26-2022 11:25-0500 Body height 167.6 cm Leila Alamo MD Work Phone: [facility] 09-26-2022 11:25-0500 Body temperature 98.2 [degF] Leila Alamo MD Work Phone: [facility] 09-26-2022 11:25-0500 Body weight 68.04 kg Leila Alamo MD Work Phone: [facility] 08-07-2022 15:28-0400 Body weight 68.95 kg Henry Ramos MD Work Phone: [facility] 08-07-2022 15:28-0400 Diastolic blood pressure 91 mm[Hg] Henry Ramos MD Work Phone: [facility] 08-07-2022 15:28-0400 SaO2% (BldA) [Mass fraction] 98 % Henry Ramos MD Work Phone: [facility] 08-07-2022 15:28-0400 Systolic blood pressure 132 mm[Hg] Henry Ramos MD Work Phone: [facility] 03-13-2022 14:38-0400 Body height 169.5 cm Henry Ramos MD Work Phone: [facility] 03-13-2022 14:38-0400 Body temperature 96.8 [degF] Henry Ramos MD Work Phone: [facility] 03-13-2022 14:38-0400 Body weight 66.32 kg Henry Ramos MD Work Phone: [facility] 03-13-2022 14:38-0400 Diastolic blood pressure 96 mm[Hg] Henry Ramos MD Work Phone: [facility] 03-13-2022 14:38-0400 Heart rate 85 /min Henry Ramos MD Work Phone: [facility] 03-13-2022 14:38-0400 Respiratory rate 16 /min Henry Ramos MD Work Phone: [facility] 03-13-2022 14:38-0400 SaO2% (BldA) [Mass fraction] 98 % Henry Ramos MD Work Phone: [facility] 03-13-2022 14:38-0400 Systolic blood pressure 151 mm[Hg] Henry Ramos MD Work Phone: [facility] 07-07-2021 14:50-0400 Diastolic blood pressure 101 mm[Hg] Mayra Michel MD Work Phone: [email or web address] Work Phone: 07-07-2021 14:50-0400 Heart rate 70 /min Mayra Michel MD Work Phone: [email or web address] Work Phone: 07-07-2021 14:50-0400 Respiratory rate 13 /min Mayra Michel MD Work Phone: [email or web address] Work Phone: 07-07-2021 14:50-0400 SaO2% (BldA) [Mass fraction] 99 % Mayra Michel MD Work Phone: [email or web address] Work Phone: 07-07-2021 14:50-0400 Systolic blood pressure 133 mm[Hg] Mayra Michel MD Work Phone: [email or web address] Work Phone: 07-07-2021 13:25-0400 Body height 167.6 cm Mayra Michel MD Work Phone: [email or web address] Work Phone: 07-07-2021 13:25-0400 Body mass index (BMI) [Ratio] 24.19 kg/m2 Marya Michel MD Work Phone: [email or web address] Work Phone: 07-07-2021 13:25-0400 Body temperature 98.6 [degF] Mayra Michel MD Work Phone: [email or web address] Work Phone: 07-07-2021 13:25-0400 Body weight 67.99 kg Mayra Michel MD Work Phone: [email or web address] Work Phone: 11-25-2019 16:19-0500 Body weight 70.4 Kg [facility] Comment on above: Performed By: #### 1000, 4500, 4510, 452 0, 19750, 5000, [id number], [id number] #### [facility] Unless Otherwise Noted [address] [place] [address] / COLA #[id number]/LAKIA # [id number] Encounters Encounter Date Encounter Type Care Provider Facility Start: 03-05-2024 End: 03-05-2024 ambulatory MARY LAU Not Available Start: 02-13-2024 End: 02-14-2024 ambulatory MARY LAU Not Available Start: 12-17-2023 End: 12-17-2023 ambulatory Roland Serrano Other [employer] Other Start: 12-17-2023 Telephone encounter Roland VOGT [facility] Start: 10-23-2023 End: 10-23-2023 ambulatory Roland Serrano Other [employer] Other Start: 10-23-2023 Telephone encounter Roland VOGT [facility] Start: 10-02-2023 End: 10-02-2023 ambulatory LEIGH MORENO Not Available Start: 09-29-2023 End: 09-30-2023 ambulatory ROLAND SERRANO Facility:[facility] Start: 09-29-2023 End: 09-29-2023 Patient encounter procedure South Saba DO Work Phone: Colorectal Surgery Comment on above: Radiation proctitis (Primary Dx); Endometrial cancer (HCC) Start: 09-21-2023 End: 09-21-2023 ambulatory Roland Ball Other [employer] Other Start: 09-21-2023 Telephone encounter Roland Ball [facility] Start: 09-18-2023 End: 09-18-2023 ambulatory Roland Ball Other [employer] Other Start: 09-18-2023 Telephone encounter Roland Ball [facility] Start: 09-17-2023 End: 09-17-2023 ambulatory Roland Ball Other [employer] Other Start: 09-17-2023 Telephone encounter Roland Ball [facility] Start: 09-15-2023 End: 09-15-2023 ambulatory Roland Ball Other [employer] Other Start: 09-15-2023 Telephone encounter Roland Ball [facility] Start: 09-14-2023 End: 09-14-2023 ambulatory Roland Ball Other [employer] Other Start: 09-14-2023 Telephone encounter Roland Ball [facility] Start: 09-12-2023 End: 09-12-2023 ambulatory Roland Ball Other [employer] Other Start: 09-12-2023 Encounter for genera l adult medical examination without abnormal findings Roland Ball [facility] Start: 09-12-2023 Periodic preventive med est patient 40-64yrs Roland Ball [facility] Start: 09-10-2023 End: 09-10-2023 ambulatory Roland Ball Other [employer] Other Start: 09-10-2023 Telephone encounter Roland Ball [facility] Start: 09-03-2023 End: 09-03-2023 ambulatory Roland Ball Other [employer] Other Start: 09-03-2023 Telephone encounter Roland Ball [facility] Start: 09-02-2023 Telephone encounter Roland Serrano [facility] Start: 09-02-2023 End: 09-02-2023 ambulatory ROLAND SERRANO [facility] [employer] Other Start: 09-01-2023 End: 09-01-2023 ambulatory Roland Serrano Other [employer] Other Start: 09-01-2023 Telephone encounter Roland Serrano [facility] Start: 08-29-2023 End: 08-29-2023 ambulatory ROLAND SERRANO Facility:[facility] Start: 08-29-2023 End: 08-30-2023 ambulatory ROLAND SERRANO Facility:[facility] Start: 08-29-2023 Encounter for other preprocedural examination ELDER GALAN [facility] Start: 08-29-2023 End: 08-29-2023 ambulatory ROLAND SERRANO Facility:[facility] Start: 08-29-2023 End: 08-29-2023 Preprocedural examination done Elder Galan APRN.[employer]YE LINE OPERATOR Work Phone: [facility] Work Phone: Start: 08-29-2023 End: 08-29-2023 ambulatory Pulm Fct Lab Main 8 Pulmonary Medicine Comment on above: Spirometry Start: 08-29-2023 End: 08-29-2023 Patient encounter procedure Pulm Fct Lab Main 8 [facility] Comment on above: Dyspnea and respirat ory abnormalities (Primary Dx); Calcified nodule; Iron deficiency anemia due to chronic blood loss Pre-op evaluation (P rimary Dx) Start: 08-29-2023 End: 08-29-2023 Subsequent hospital visit by physician Xr Chest Main A21 Radiology Comment on above: Dyspnea, unspecified type [R06.00] Start: 08-26-2023 Orders Only Heidi Hatfield MD Work Phone: Res[facility] [place] Comment on above: ILD (interstitial lamont ng disease) (HCC) (Primary Dx) Start: 08-22-2023 ambulatory South rincon DO Work Phone: [facility] Start: 08-22-2023 Patient encounter procedure South Saba DO Work Phone: Colorectal Surgery Comment on above: Pre op appointment Start: 08-22-2023 End: 08-22-2023 Subsequent hospital visit by physician Frannie [facility] Phone[facility] Comment on above: Interstitial pulmona ry disease (HCC) [J84.9] Start: 08-14-2023 ambulatory ROLAND SERRANO Facilit y:[facility] Start: 08-04-2023 End: 08-04-2023 ambulatory Roland Serrano Other [employer] Other Start: 08-04-2023 Office outpatient vi sit 15 minutes Roland Serrano [facility] Start: 07-22-2023 ambulatory South rincon DO Work Phone: Colorectal Surgery Start: 07-22-2023 Telephone encounter Se Jayant DO Work Phone: Colorectal Surgery Comment on above: Patient Update Start: 07-08-2023 End: 07-08-2023 ambulatory Roland Serrano Other [employer] Other Start: 07-08-2023 Telephone encounter Roland Serrano [facility] Start: 07-04-2023 End: 07-05-2023 ambulatory Se [...] encounter procedure Pulm Fct Lab Main 9 [facility] Comment on above: Interstitial pulmona ry disease (HCC) (Primary Dx); Other secondary pulmonary hypertension (HCC) Start: 05-26-2023 ambulatory Henry perales MD Work Phone: Gynecology Oncology Comment on above: Procitis Start: 05-23-2023 End: 05-23-2023 ambulatory Roland Serrano Other [employer] Other Start: 05-23-2023 Office outpatient vi sit 15 minutes Roland Serrano [facility] Start: 05-13-2023 End: 05-13-2023 ambulatory Roland Serrano Other [employer] Other Start: 05-13-2023 Telephone encounter Roland Maggie [facility] Start: 04-23-2023 End: 04-23-2023 ambulatory Roland Serrano Other [employer] Other Start: 04-23-2023 Patient encounter procedure Roland Serrano [facility] Start: 03-25-2023 End: 03-25-2023 ambulatory Roland Serrano Other [employer] Other Start: 03-25-2023 Telephone encounter Roland Serrano [facility] Start: 03-21-2023 Telephone encounter Roland Serrano TORIE [facility] Start: 03-21-2023 End: 03-22-[address] ROLAND SERRANO [facility] [employer] Other Start: 03-11-2023 End: 03-11-2023 ambulatory Roland Maggie Other [employer] Other Start: 03-11-2023 Telephone encounter Roland Serrano TORIE [facility] Start: 03-10-2023 End: 03-11-[address] ROLAND SERRANO [facility] [employer] Other Start: 03-10-2023 Telephone encounter Roland Serrano TORIE [facility] Start: 03-05-2023 End: 03-05-2023 ambulatory ROLAND Bernie MAGGIE Facility:[facility] Start: 03-05-2023 End: 03-05-2023 Patient encounter procedure Juan Manuel Medina APRN.DYE LINE OPERATOR Work Phone: Gastroenterology Comment on above: Rectal bleeding (Ivvi nicho Dx) Start: 01-24-2023 End: 01-24-2023 ambulatory Roland Serrano Other [employer] Other Start: 01-24-2023 Office outpatient vi sit 15 minutes Roland Serrano [facility] Start: 01-23-2023 End: 01-23-2023 ambulatory Roland Serrano Other [employer] Other Start: 01-23-2023 Telephone encounter Roland VOGT [facility] Start: 01-20-2023 Office outpatient vi sit 15 minutes Olya Gann [facility] Start: 01-20-2023 End: 01-20-[address] ROLAND SERRANO [employer] Other Start: 01-07-2023 End: 01-07-2023 ambulatory Roland Serrano Other [employer] Other Start: 01-07-2023 Telephone encounter Roland Serrano [facility] Start: 01-03-2023 End: 01-04-2023 ambulatory ROLAND SERRANO Facility:[facility] Start: 01-03-2023 End: 01-04-2023 ambulatory ROLAND SERRANO Facility:[facility] Start: 01-03-2023 End: 01-04-2023 ambulatory Henry Ramos MD Work Phone: Gynecology Oncology Comment on above: Recurrent carcinoma of endometrium (HCC) (Primary Dx); Radiation proctitis; Blood per rectum Start: 01-03-2023 End: 01-04-2023 Patient encounter procedure Henry Ramos MD Work Phone: [facility] Start: 12-25-2022 Telephone encounter Aretha [...] examination without abnormal findings DR ROLAND SERRANO [facility] Start: 09-04-2022 End: 09-05-[address] ROLAND SERRANO Facility:[facility] Start: 09-04-2022 End: 09-05-2022 Encounter for general adult medical examination without abnormal findings DR ROLAND SERRANO Facility:[facility] Start: 08-29-2022 Adult health examination Roland Serrano Other [employer] Other Start: 08-29-2022 Encounter for genera l adult medical examination without abnormal findings Roland Serrano Other [employer] Other Start: 08-29-2022 Pre-procedure evaluation check Roland Serrano Other [employer] Other Start: 08-07-2022 End: 08-07-2022 ambulatory Henry Ramos MD Work Phone: Gynecology Oncology Comment on above: Recurrent carcinoma of endometrium (HCC) (Primary Dx); Radiation proctitis; Foreshortening of vagina; Endometrial cancer (HCC); Vaginal atrophy; Rectal bleeding Start: 08-07-2022 End: 08-07-2022 Patient encounter procedure Henry Ramos MD Work Phone: [facility] Start: 06-12-2022 End: 06-12-2022 ambulatory SALOMON JACOME Facility:[facility] Start: 03-13-2022 End: 03-13-2022 ambulatory Henry Ramos MD Work Phone: Gynecology Oncology Comment on above: Recurrent carcinoma of endometrium (HCC) (Primary Dx); Vaginal atrophy; Foreshortening of vagina Start: 03-13-2022 End: 03-13-2022 Patient encounter procedure Henry Ramos MD Work Phone: [facility] Start: 11-21-2021 End: 11-22-2021 Emergency department patient visit [facility] Start: 07-07-2021 End: 07-07-2021 Emergency department patient visit ALAMO Bernie [facility] Start: 07-07-2021 End: 07-07-2021 Emergency department patient visit Mayra Michel MD Work Phone: [facility] ED Comment on above: Dizziness (Primary D x); Dehydration Procedures Date Procedure Procedure Detail Performing Clinician Start: 09-29-2023 Follow-up visit Follow Up SOUTH SABA Start: 09-02-2023 Antibody screen JUAN SERRANO Comment on above: Order Comment: Speci men Type: BLOOD SPECIMEN Ordering Facility: [facility] Address: [address] [place] [address] Performed By: #### 5 [id number], [id number] #### [facility] CLIA [id number] [address] [place] [address] Start: 08-29-2023 Antibody screen JUAN SERRANO Comment on above: Order Comment: Speci men Type: BLOOD SPECIMEN Ordering Facility: [facility] Address: [address] [place] [address] Performed By: #### 5 [id number], [id number] #### [facility] CLIA [id number] [facility] [address] [place] Start: 08-29-2023 Spmtry w/vc [...] w /collj spec when pfrmd Ernesto Ginna MILK INSPECTOR.[employer]YE LINE OPERATOR Work Phone: Start: 09-26-2022 Colonoscopy Leila Alamo MD Work Phone: Start: 11-02-2021 Antibody screen Comment on above: Order Comment: Trans fuse now? N Result Comment: PERF ORMED BY: [facility] [address] [place] [address] PATHOLOGIST SALESFORCE DEVELOPER CLAIRE ANTHONY M.D. Start: 10-15-2021 Antibody screen Comment on above: Order Comment: Date of Surgery: [id number] # of PRBC units on hold?: 2 Result Comment: PERF ORMED BY: [facility] [address] [facility] [place] [address] PATHOLOGIST SALESFORCE DEVELOPER CLAIRE ANTHONY M.D. Start: 09-20-2021 Adult depression scr eening assessment Henry Ramos MD Work Phone: Start: 08-20-2021 Antibody screen Comment on above: Order Comment: Date of Surgery: [id number] # of PRBC units on hold?: 2 Result Comment: PERF ORMED BY: [facility] [address] [place] [address] PATHOLOGIST SALESFORCE DEVELOPER CLAIRE ANTHONY M.D. Start: 07-07-2021 Urinalysis microscopic [...] Detail Author Start: 08-29-2026 [facility] Start: 07-04-2026 DIABETES SCREEN DIABETES SCREEN [facility] Start: 07-04-2026 Diabetes Screening Diabetes Screenin g [facility] Start: 09-26-2023 Colonoscopy COLONOSCOPY [facility] Start: 09-26-2023 COLORECTAL CANCER SCREENING COLORECTAL CANCER SCREENING [facility] Start: 08-26-2023 End: 09-24-2024 SPIROMETRY BASELINE ONLY SPIROMETRY BASELINE ONLY PFT Routine ILD (interstitial lung disease) (HCC) Expected: 08/26/2023, Expires: 09/24/2024 [facility] Work Phone: Comment on above: Expected: 08/26/2023 , Expires: 09/24/2024 Start: 07-22-2023 End: 09-21-2023 CBC W Auto Differential panel - Blood CBC + DIFF Lab Routine Radiation proctitis Expected: 07/22/2023, Expires: 09/21/2023 [facility] Work Phone: Comment on above: Expected: 07/22/2023 , Expires: 09/21/2023 Start: 07-22-2023 End: 09-21-2023 Comprehensive metabolic 2000 panel - Serum or Plasma COMP METABOLIC PANEL Lab Routine Radiation proctitis Expected: 07/22/2023 (Approximate), Expires: 09/21/2023 [facility] Work Phone: Comment on above: Expected: 07/22/2023 (Approximate), Expires: 09/21/2023 Start: 07-18-2023 Covid-19 Vaccine () Covid-19 Vaccine () [facility] Start: 07-18-2023 Influenza vaccination C [facility] Start: 11-17-2022 DEPRESSION ASSESSMENT DEPRESSION ASS ESSMENT [facility] Start: 09-20-2022 Adult depression scr eening assessment DEPRESSION SCREENING [facility] Start: 08-12-2022 DIABETES SCREEN DIABETES SCREEN [facility] Start: 08-07-2022 End: 10-07-2022 CBC W Auto Differential panel - Blood CBC + DIFF Lab Routine Rectal bleeding Expected: 08/07/2022, Expires: 10/07/2022 [facility] Work Phone: Comment on above: Expected: 08/07/2022 , Expires: 10/07/2022 Start: 07-18-2022 Influenza vaccination C [facility] Start: 11-27-2021 COVID-19 VACCINE (3 - Booster for Moderna series) COVID-19 VACCINE (3 - Booster for Moderna series) [facility] Start: 11-17-2021 DEPRESSION ASSESSMENT DEPRESSION ASS [facility] Start: 08-22-2021 COVID-19 VACCINE (3 - Booster for Moderna series) COVID-19 VACCINE (3 - Booster for Moderna series) [facility] Start: 08-22-2021 COVID-19 VACCINE (3 - Moderna series) COVID-19 VACCINE (3 - Moderna series) [facility] Start: 07-18-2021 Influenza vaccination Flu vaccine (# 1) [email or web address] Work Phone: Start: 2020 RSV Vaccine (1 - 1-d ose 60+ series) RSV Vaccine (1 - 1-dose 60+ series) [facility] Start: 2010 SHINGRIX VACCINE (1 of 2) [place] GRIX VACCINE (1 of 2) [facility] Start: 2005 COLOGUARD (FIT-DNA) COLOGUARD (FIT-D NA) [facility] Start: 2005 Colonoscopy COLONOSCOPY [facility] Start: 2005 COLORECTAL CANCER SCREENING COLORECTAL CANCER SCREENING [facility] Start: [address] COLONOGRAPHY [facility] Start: 2005 FECAL OCCULT BLOOD FECAL OCCULT BLOO D [facility] Start: 2005 Lipid 1996 panel - S marcela or Plasma Lipid Screening [facility] Start: 2005 LIPID SCREEN LIPID SCREEN [facility] Start: [address] [facility] Start: 2000 Mammography [facility] Start: 1990 HPV TESTING HPV TESTING [facility] Start: 1981 PAP TESTING PAP TESTING [facility] Start: 1979 Urine microalbumin profile [facility] Start: 1978 ANNUAL PCP TEAM PERSONALIZED LIVING MANAGER SHAILA DISEASE VISIT ANNUAL PCP TEAM CHRONIC DISEASE VISIT [facility] Start: 1978 BP CONTROLLED (<130/80) BP CONTROLLE D (<130/80) [facility] Start: 1978 HEPATITIS C SCREENING HEPATITIS C SC REENING [facility] Start: 1978 HIV SCREENING HIV SCREENING [facility] End: 03-05-2024 Colonoscopy COLONOSCOPY (THERAPEUTIC) Endoscopy Routine Rectal bleeding 1 Occurrences starting 03/05/2023 until 03/05/2024 [facility] Work Phone: Comment on above: 1 Occurrences starti ng 03/05/2023 until 03/05/2024 End: 07-26-2024 Ct thorax w/o contrast material CT CHEST WO IVCON Radiology Routine Interstitial pulmonary disease (HCC) 1 Occurrences starting 06/27/2023 until 07/26/2024 [facility] Work Phone: Comment on above: 1 Occurrences starti ng 06/27/2023 until 07/26/2024 End: 07-07-2021 Culture, Urine Culture, Urine Microbiology Routine Once for 1 Occurrences starting 07/07/2021 until 07/07/2021 [employer] Phone: Comment on above: Once for 1 Occurrenc es starting 07/07/2021 until 07/07/2021 Culture, Urine Culture, Urine Microbiology Routine 07/07/2021 2:00 PM EDT [employer] Phone: End: 06-27-2024 Echocardiography ECHO Cardiology Routine Other secondary pulmonary hypertension (HCC) 1 Occurrences starting 06/27/2023 until 06/27/2024 [facility] Work Phone: Comment on above: 1 Occurrences starti ng 06/27/2023 until 06/27/2024 H&P for surgery H&P FOR SURGERY Procedures Routine Radiation proctitis Ordered: 07/22/2023 [facility] Work Phone: Comment on above: Ordered: 07/22/2023 End: 07-26-2024 LUNG DIFFUSION CAPACITY (DLCO) LUNG DIFFUSION CAPACITY (DLCO) PFT Routine Interstitial pulmonary disease (HCC) 1 Occurrences starting 06/27/2023 until 07/26/2024 [facility] Work Phone: Comment on above: 1 Occurrences starti ng 06/27/2023 until 07/26/2024 LUNG DIFFUSION CAPAC ITY (DLCO) LUNG DIFFUSION CAPACITY (DLCO) PFT Routine Interstitial pulmonary disease (HCC) 08/29/2023 9:27 AM EDT [facility] Work Phone: End: 07-26-2024 LUNG VOLUMES LUNG VOLUMES PFT Routine Interstitial pulmonary disease (HCC) 1 Occurrences starting 06/27/2023 until 07/26/2024 [facility] Work Phone: Comment on above: 1 Occurrences starti ng 06/27/2023 until 07/26/2024 End: 07-26-2024 Pulmonary ventilation & perfusion imaging NM LUNG VENT / PERF VQ Radiology Routine Other secondary pulmonary hypertension (HCC) 1 Occurrences starting 06/27/2023 until 07/26/2024 [facility] Work Phone: Comment on above: 1 Occurrences starti ng 06/27/2023 until 07/26/2024 REFER FOR ADMIT INTERVIEW REFER FOR ADMIT INTERVIEW Procedures Routine Radiation proctitis Ordered: 07/22/2023 [facility] Work Phone: Comment on above: Ordered: 07/22/2023 End: 08-07-2023 Screening colonoscopy COLONOSCOPY SCREENING Endoscopy Routine Rectal bleeding 1 Occurrences starting 08/07/2022 until 08/07/2023 [facility] Work Phone: Comment on above: 1 Occurrences starti ng 08/07/2022 until 08/07/2023 End: 09-26-2022 Screening colonoscopy COLONOSCOPY SCREENING Endoscopy Routine Rectal bleeding 1 Occurrences starting 09/26/2022 until 09/26/2022 [facility] Work Phone: Comment on above: 1 Occurrences starti ng 09/26/2022 until 09/26/2022 SPIROMETRY BASELINE ONLY SPIROME TRY BASELINE ONLY PFT Routine ILD (interstitial lung disease) (HCC) 08/29/2023 9:27 AM EDT [facility] Work Phone: SPIROMETRY WITH DILA TOR IF OBSTRUCTED SPIROMETRY WITH DILATOR IF OBSTRUCTED PFT Routine Dyspnea, unspecified type 06/27/2023 10:15 AM EDT [facility] Work Phone: [facility] Immunizations Immunization Date Immunization Notes Care Provider [facility] 06-27-2021 COVID-19 vaccine, fu ll dose (MODERNA) Henry Ramos MD Work Phone: [facility] 11-21-2020 COVID-19 vaccine, fu ll dose (MODERNA) Henry Ramos MD Work Phone: [facility] Payers Date Payer Category Payer Unknown MMO MMO [employer] [id number] 2020-Present [phone] [address] [place] [address] PPO [id number] 2020 Unknown [id number] 1960 Unknown [id number] 74 1960 Unknown [id number] 74 1960 Unknown [id number] 2.16.840.1.078640.3.579.2.5 93 1960 Unknown [id number] 2.16.840.1.243926.3.579.2.5 93 1960 Unknown [id number] 2.16.840.1.994440.3.579.2.5 93 1960 Unknown [id number] 2.16.840.1.119410.3.579.2.5 93 1960 Unknown [id number] 2.16.840.1.357978.3.579.2.5 93 1960 Unknown [id number] 2.16.840.1.272186.3.579.2.5 93 1960 Unknown [id number] 2.16.840.1.300660.3.579.2.5 93 1960 Unknown [id number] 2.16.840.1.839181.3.579.2.1 259 1960 Unknown [id number] 2.16.840.1.896678.3.579.2.1 259 1960 Unknown [id number] 2.16.840.1.906827.3.579.2.1 259 1960 Unknown [id number] 2.16.840.1.954235.3.579.2.1 259 1959 [facility] [id number] 1959 Unknown [id number] Social History Date Type Detail Facility Start: 07-07-2021 End: 08-07-2022 Tobacco smoking status MNIS Never smoker [facility] Start: 07-07-2021 End: 08-07-2022 Tobacco use and exposure Never used [email or web address] Start: 1960 Sex Assigned At Not on file [employer] Phone: Start: 03-03-2022 End: 09-26-2022 Exposure to SARS-CoV-2 (event) Not sure [email or web address] Start: 03-13-2022 End: 09-29-2023 Alcohol intake Current drinker of alcohol (finding) [facility] Start: 07-28-2019 History SDOH Alcohol Comment 3 drinks per month [facility] Start: 03-05-2023 End: 06-27-2023 Sex Assigned At [facility] Start: 03-05-2023 End: 06-27-2023 History of Social function [facility] Adult Depression Screening Assessment 0 [facility] Clinical Notes 03-13-2022 to 10-23-2023 Note Date & Type Note Facility 10-23-2023 Evaluation note Encounter Date Diagnosis Assessment Notes Oct, Iron deficiency anemia due to chronic blood loss (ICD-10 - D50.0) Oct, Decreased thyroid stimulating hormone (TSH) level (ICD-10 - R79.89) Oct, Pulmonary hypertension (ICD-10 - I27.20) [employer] Other 11-13-2023 NoteHNO ID: [id number] Author: [place], DO Service: ? Author [...] mortality and/or complications of treatment plan: low [facility]11-13-2023 History of Present illness Narrative* [...] of treatment plan: low documented in this encounterTr[facility] System11-05-2023 Evaluation note* Encounter Date Diagnosis Assessment Notes Treatment Notes Treatment Clinical Notes Sep, Iron deficiency anemia due to chronic blood loss (ICD-10 - D50.0) Sep, 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) [employer] Other 11-01-2023 Evaluation note* Encounter Date Diagnosis Assessment Notes Treatment Notes Treatment Clinical Notes Sep, Elevated liver enzymes (ICD-10 - R74.8) Sep, Cholestasis (ICD-10 - K83.1) Sep, Thyrotoxicosis 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 storm, 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 - E05.90) [employer] Other 10-30-2023 Evaluation note* Encounter Date Diagnosis Assessment Notes Treatment Notes Treatment Clinical Notes Aug, Decreased thyroid stimulating hormone (TSH) level (ICD-10 - R79.89) [employer] Other 10-27-2023 Evaluation note* Encounter Date Diagnosis [...] Ferritin May be candidate for Fe IV [employer] Other 10-18-2023 Evaluation note* Encounter Date Diagnosis Assessment Notes Treatment Notes Treatment Clinical Notes Aug, Radiation proctitis (ICD-10 - K62.7) Aug, Iron deficiency anemia due to chronic blood loss (ICD-10 - D50.0) [employer] Other 10-17-2023 NoteHNO ID: [id number] Author: Brannon Sung APRN.HOP FARMER Service: ? 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 steam box operator and patient Staffing HOP FARMER: Brannon Sung APRN.HOP FARMER Performed by: HOP FARMER Indications and Patient Condition Indications for airway [...] no Airway not difficult SIGNATURE: Brannon Sung APRN.HOP FARMER PATIENT NAME: Isabel Waddell DATE: September 02, 2023 TIME: 8:05 AM [facility]: [id number] * Encounter Date Diagnosis Assessment Notes Treatment Notes Treatment Clinical Notes Aug, Dilated cardiomyopathy (ICD-10 - I42.0) Echo: LVEF normal, RVSP 31, LAE [employer] Other 10-13-2023 NoteHNO ID: [id number] Author: Heidi Menard MD Service: ? Author Type: Fellow Type: Progress Notes Filed: 08/29/2023 4:02 PM Note Text: Ms. Waddell is a 63 year old female who [facility] to the [facility] [place]. 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 Author Type: Registered Resp Therapist Type: Progress Notes Filed: 08/29/2023 9:52 AM Note Text: PULM FUNCTION SMARTBLOCK: Provider: Mike Presley MD Spirometry: 1 DLCO: 1 [facility] - [facility] History and physical note* Elder Galan APRN.DYE LINE OPERATOR - 08/29/2023 11:00 AM EDT COLON [...] of treatment plan: high documented in this encounterTrinity Health System10-13-2023 NoteHNO ID: [id number] Author: Marshal Vasquez RT(Be) Service: ? Author [...] BY: DAVID Munoz) August 29, 2023 9:10 [facility]10-13-2023 History of Present illness Narrative* Heidi Menard MD - 08/29/2023 10:00 AM EDT Images from the original note were not included. Ms. Waddell is a 63 year old female who presents to the [facility] [place]. 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 Hobbies:Biking Vacation: [place], [place] No significant exposure history except local radiation [...] MULTIVITAMIN TAB^Take one(1) tablet daily.^Disp: ^Rfl: 0 [id number]-CSO-FISH OIL-L.CASEI ORAL^Take by mouth once daily.^Disp: ^Rfl: [...] personally reviewed by me Data Reviewed from [facility] (in addition to that noted [...] MD Pulmonary and Critical Care Fellow [facility] [place] Staff note: I have personally interviewed and [...] Hilton Adame MD 08/29/2023 documented in this encounterTrinity Health System10-13-2023 History of Present illness Narrative* Sveta Roman, CONTENT MANAGEMENT SPECIALIST - 08/29/2023 9:52 AM EDT PULM FUNCTION SMARTBLOCK: Provider: Mike Presley MD Spirometry: 1 DLCO: 1 LV - Box: 1 documented in this encounterTrinity Health System10-13-2023 History of Present illness Narrative* Marshal Vasquez [...] 29, 2023 9:10 AM documented in this encounterTrinity Health System10-10-2023 NoteHNO ID: [id number] Author: Gilberto Beth Service: ? Author Type: ? Type: Progress Notes Filed: 08/26/2023 4:28 PM Note Text: [place] to pair w dlco/lv on upcoming f[facility] History of Present illness Narrative* Gilberto Beth - 08/26/2023 4:16 PM EDT [place] to pair w dlco/lv on upcoming f/u visit documented in this encounterTrinity Health System10-06-2023 NoteHNO ID: [id number] Author: Nuvia Grewal RT (R) Service: Radiology Author Type: Oil Field Tester Type: Progress Notes Filed: 08/22/2023 8:34 AM [...] BY: DAVID Ann) August 22, 2023 8:33 AMVa [id number] History of Present illness Narrative* Nuvia Grewal [...] 22, 2023 8:33 AM documented in this encounterTrinity Health System09-18-2023 Evaluation note* Encounter Date Diagnosis Assessment Notes [...] symptoms. Will initiate antibiotics and have called [facility]. Since her symptoms developed > 5 days ago, no Paxlovid has been prescribed Jul, Bronchitis, not specified as acute or chronic (ICD-10 - J40) Instructed to use Robitussin or Mucinex for cough, saline or Flonase NS for congestion, Tylenol for pain and fever. [employer] Other 09-05-2023 Miscellaneous Notes* Telephone Encounter - Divya Karimi - 07/22/2023 3:17 PM EDT Isabel Waddell accepts 09/01 and 09/02 dates for preop and surgery documented in this encounterTrinity Health System09-05-2023 Miscellaneous Notes* Telephone Encounter - Enid Baker - 07/22/2023 2:48 PM EDT [phone] Patient calling to reschedule her EUA. documented in this encounterTrinity Health System08-22-2023 Evaluation note* Encounter Date Diagnosis Assessment Notes Treatment Notes Treatment Clinical Notes Jun, SHERIF (generalized anxiety disorder) (ICD-10 - F41.1) [employer] Other 08-18-2023 History and physical note* South [...] regular bowel movements. 03/05/23 Juan Manuel Medina DYE LINE OPERATOR: Isabel Waddell is a 62 year [...] 150 mg by mouth daily at bedtime. [id number]-[id number]-KBP-FISH OIL-L.CASEI ORAL Take by mouth once daily. [...] Documents Reviewed/ordered: Review of prior notes from SCRIPT WORKER/ONC, pulmonary medicine Review of prior operative [...] of treatment plan: high documented in this encounterTrinity Health System08-11-2023 NoteHNO ID: [id number] Author: Heidi Menard MD Service: ? Author Type: Fellow Type: Progress Notes Filed: 06/29/2023 8:14 AM Note Text: Ms. Waddell is a 63 year old female who presents to the [facility] [place]. Consultation requested by Self. 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 Silica: No significant exposure. [place]: No significant exposure. Organic HP antigen: No [...] Rectal, Enteric Tube, Stom (more content not included)...[facility]08-11-2023 NoteHNO ID: [id number] Author: Dayan Marley RRT Service: ? Author Type: Registered Resp Therapist Type: Progress Notes Filed: 06/27/2023 10:27 AM Note Text: PULM FUNCTION SMARTBLOCK: Provider: Pedro Rodarte MD Spirometry: 1 System: 3 - [id number] [facility] Center08-11-2023 History of Present illness Narrative* Heidi Menard MD - 06/27/2023 10:29 AM EDT Images from the original note were not included. Ms. Waddell is a 63 year old female who presents to the [facility] [place]. Consultation requested by Self. 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 Silica: No significant exposure. [place]: No significant exposure. Organic HP antigen: No [...] 150 mg by mouth daily at bedtime. [id number]-WXT-TTO-FISH OIL-L.CASEI ORAL Take by mouth once daily. [...] personally reviewed by me Data Reviewed from [facility] (in addition to that noted [...] MD Pulmonary and Critical Care Fellow [facility] [place] STAFF ATTENDING NOTE I have personally interviewed [...] Mike Thompson MD 06/29/2023 documented in this encounterTrinity Health System08-11-2023 History of Present illness Narrative* Dayan Marley RRT - 06/27/2023 10:26 AM EDT PULM FUNCTION SMARTBLOCK: Provider: Pedro Rodarte MD Spirometry: 1 System: 3 - [id number] documented in this encounterTrinity Health System07-07-2023 Evaluation note* Encounter Date Diagnosis Assessment Notes [...] and feet daily for blisters and ulcerations. [employer] Other 06-27-2023 Evaluation note* Encounter Date Diagnosis Assessment Notes Treatment Notes Treatment Clinical Notes Apr, History of total right hip replacement (ICD-10 - Z96.641) [employer] Other 06-07-2023 Evaluation note* Encounter Date Diagnosis [...] F41.1) Healthy diet, exercise and keep active [employer] Other 2023 Evaluation note* Encounter Date Diagnosis Assessment Notes Treatment Notes Treatment Clinical Notes March, Mild intermittent asthma without complication (ICD-10 - J45.20) [employer] Other 05-05-2023 Evaluation note* Encounter Date Diagnosis Assessment Notes Treatment Notes Treatment Clinical Notes March, Dyspnea on exertion (ICD-10 - R06.09) [employer] Other 04-24-2023 Evaluation note* Encounter Date Diagnosis Assessment Notes Treatment Notes Treatment Clinical Notes Feb, Shortness of breath (ICD-10 - R06.02) Feb, Subacute cough (ICD-10 - R05.2) [employer] Other 04-19-2023 Instructions* Patient Instructions* Juan Manuel MedinaBETTY.MONSERRAT - 03/05/2023 9:47 AM EDT Images from the original note were not included. Thank you for seeing me in clinic today. As we discussed, my recommendations are as follows: 1.Colonoscopy If you have any questions about the above treatment plan, please do not hesitate to call the officeor send me a Wooshii message. Bowel Preparation Instructions for: Miralax-Gatorade Preparations [...] If you do not have a responsible delivery driver/customer service (family member or friend) withyou to take you home, your exam cannot be done with sedation and will be cancelled. Please bring a list of all of your current medications, including any Eeiz-btl-Zkjpezl medications with you. Medications If you take [...] your exam. 2 10/2019 documented in this encounterTrinity Health System04-19-2023 History and physical note * Juan Manuel [...] Abs Lymph 1.00 - 4.00 k/uL 1.31 Pennington% % 11.1 Abs Pen[place] <0.87 k/uL 0.50 Eosin% % 3.1 Abs [...] 150 mg by mouth daily at bedtime. [id number]-GFM-RQB-FISH OIL-L.CASEI ORAL Take by mouth once daily. [...] -radiation proctitis?? This note was dictated using [employer] speech recognition software and may contain some errors that were a result of the program not accurately transcribing what was dictated. Juan Manuel Medina APRN.CNP documented in this encounterTrinity Health System03-10-2023 Evaluation note* Encounter Date Diagnosis Assessment Notes Treatment Notes Treatment Clinical Notes Jan, Acute bronchitis due to other specified organisms (ICD-10 - J20.8) Instructed to use Robitussin or Mucinex for cough, saline or Flonase NS for congestion, Tylenol for pain and fever. [employer] Other 03-06-2023 Evaluation note* Encounter Date Diagnosis [...] weeks for the cough to go away [employer] Other 02-17-2023 NoteHNO ID: [id number] Author: Henry Ramos MD Service: ? Author Type: Physician Type: Progress Notes Filed: 01/12/2023 11:27 PM Note Text: Gynecologic Oncology 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 The patient [...] 150 mg by mouth daily at bedtime. DWTP3-IJP-OLP-FISH OIL-L.CASEI ORAL Take by mouth once daily. Lactobac no.41/Bifidobact no.7 (PROBIOTIC-10 ORAL) Take by mouth once daily. MULTIVITAMIN TAB Take (more content not included)...[facility] 01-03-2023 History of Present illness Narrative* Henry Ramos MD - 01/03/2023 3:20 PM EST Gynecologic Oncology 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 The patient [...] 150 mg by mouth daily at bedtime. [id number]-YXH-PUO-FISH OIL-L.CASEI ORAL Take by mouth once daily. [...] improving. She has a trip planned to [facility] next week for 10 days. PHYSICAL EXAM: [...] or swelling. Deep tendon reflexes are present Cashier for exam: Gurpreet Villarreal APRN.DYE LINE OPERATOR RESULTS: CA 125 (U/mL) Date Value 12/13/2021 9 06/04/2021 8 07/12/2019 15 No new results to review ASSESSMENT & PLAN: 05/25/2021-Dee Dee Carter APRN.DYE LINE OPERATOR IA endometrioid type endometrial adenocarcinoma, FIGO [...] review with PCP 05/30/2021- Dee Dee Carter APRN.DYE LINE OPERATOR (distance health visit) 61 yo female [...] her today already. Test vaginal lesion for ER/ND receptors See me September 19 for post [...] hyperthyroidism, advised follow up with PCP and [employer] Top Hat Body Maker. Ernesto Chacko APRN.DYE LINE OPERATOR 03/13/2022 Recurrent Endometrial cancer with recurrence [...] Recommend she start following with a [facility] telephone messenger for her rectal bleeding. We will assistwith [...] 03, 2023 4:37 PM documented in this encounterTrinity Health System02-08-2023 Miscellaneous Notes* Telephone Encounter - Aretha Pena [...] 12/25/2022 2:19 PM EST ----- Message from [employer] Lorena sent at 12/25/2022 12:04 PM EST ----- Regarding: Rachel Patient bleeding and clotting almost daily since Colonoscopy. September was the Colonoscopy. Concerned and would like to know if she should schedule an appointment. [phone] documented in this encounterTrinity Health System11-10-2022 Nurse Note* Francisca Gómez RN - 09/26/2022 [...] LIMITATIONS AFFECTING LEARNING: None Electronically Signed By: Isuara Mao RN In Department: GASTROENTEROLOGY documented in this encounterTrinity Health System11-10-2022 Miscellaneous Notes* Sedation Documentation - Aretha Deluna RN - 09/26/2022 12:00 PM EST Grounding pad placed at right flank. Skin Intact. LOT#[id number]. documented in this encounterTrinity Health System11-03-2022 Miscellaneous Notes* Telephone Encounter - Kelly Ch MA - 09/19/2022 3:49 PM EDT Attempted to reach the patient at the contact number that they provided [phone] (home) . 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 2 10/2019 documented in this encounterTrinity Health System09-21-2022 History of Present illness Narrative* Henry Ramos MD - 08/07/2022 3:20 PM EDT Gynecologic Oncology 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 The patient [...] 150 mg by mouth daily at bedtime. [id number]-XTA-NLZ-FISH OIL-L.CASEI ORAL Take by mouth once daily. [...] groin. LOWER EXTREMITIES: No swelling or edema. Cashier for exam: Promise Mclaughlin MA RESULTS: 05/25/2021 - VAGINAL BIOPSY Vagina, biopsy - Consistent with endometrioid adenocarcinoma (see comment). GZ/ka 05/28/2021 COMMENT The tumor cells are diffusely and strongly positive for immunohistochemical stain for Manning 8, supporting the above diagnosis. The patient [...] dedicated report for findings in the abdomen Salt Washer (topogram) images: None CA 125 (U/mL) Date Value 12/13/2021 9 06/04/2021 8 07/12/2019 15 ASSESSMENT & PLAN: 05/25/2021-Dee Dee Carter APRN.DYE LINE OPERATOR IA endometrioid type endometrial adenocarcinoma, FIGO [...] symptoms - Referral to Dr. Sita Naidu [facility] [place] - Mammogram gets this done locally, will review with PCP - Colonoscopy due, will review with PCP 05/30/2021- Dee Dee Carter APRN.DYE LINE OPERATOR (distance health visit) 61 yo female [...] her today already. Test vaginal lesion for ER/ND receptors See me September 19 for post [...] hyperthyroidism, advised follow up with PCP and [employer] Top Hat Body Maker. Ernesto Chacko APRN.DYE LINE OPERATOR 03/13/2022 Recurrent Endometrial cancer with recurrence [...] 07, 2022 4:19 PM documented in this encounterTrinity Health System04-27-2022 History of Present illness Narrative* Henry Ramos MD - 03/13/2022 2:50 PM EDT Gynecologic Oncology 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 The patient [...] 150 mg by mouth daily at bedtime. [id number]-EHN-HNZ-FISH OIL-L.CASEI ORAL Take by mouth once daily. [...] absent LOWER EXTREMITIES: No swelling or edema. Cashier for exam: Modlo RESULTS: 05/25/2021 - VAGINAL BIOPSY Vagina, biopsy - Consistent with endometrioid adenocarcinoma (see comment). THELMA/fiorella 05/28/2021 COMMENT The tumor cells are diffusely and strongly positive for immunohistochemical stain for Manning 8, supporting the above diagnosis. The patient [...] dedicated report for findings in the abdomen Salt Washer (topogram) images: None CA 125 (U/mL) Date Value 12/13/2021 9 06/04/2021 8 07/12/2019 15 ASSESSMENT & PLAN: 05/25/2021-Dee Dee Carter APRN.DYE LINE OPERATOR IA endometrioid type endometrial adenocarcinoma, FIGO [...] symptoms - Referral to Dr. Sita Naidu [facility] Maintenance - Mammogram gets this done locally, will review with PCP - Colonoscopy due, will review with PCP 05/30/2021- Dee Dee Carter APRN.DYE LINE OPERATOR (distance health visit) 61 yo female [...] her today already. Test vaginal lesion for ER/ND receptors See me September 19 for post [...] hyperthyroidism, advised follow up with PCP and [employer] Top Hat Body Maker. Ernesto Chacko APRN.DYE LINE OPERATOR 03/13/2022 Recurrent Endometrial cancer with recurrence [...] Past Histories independently gathered by the clinical practice support specialist and the remaining scribed note accurately describes my personal service to the patient. [facility]* Diagnosis Dizziness- Primary Dizziness and giddiness Dehydration documented in this encounter [employer] Phone: evaluation note* Diagnosis Recurrent carcinoma of endometrium (HCC)- Primary Malignant neoplasm of corpus uteri, except isthmus Vaginal atrophy Postmenopausal atrophic vaginitis Foreshortening of vagina documented in this encounter [facility]* Diagnosis Recurrent carcinoma of endometrium (HCC)- Primary Malignant neoplasm of corpus uteri, except isthmus Radiation proctitis Other specified disorder of rectum and anus Foreshortening of vagina Endometrial cancer (HCC) Malignant neoplasm of corpus uteri, except isthmus Vaginal atrophy Postmenopausal atrophic vaginitis Rectal bleeding Hemorrhage of rectum and anus documented in this encounter [facility]* Diagnosis History of thyroid disease- Primary Personal history of other endocrine, metabolic, and immunity disorders Rectal bleeding Hemorrhage of rectum and anus documented in this encounter [facility]* Diagnosis Recurrent carcinoma of endometrium (HCC)- Primary Malignant neoplasm of corpus uteri, except isthmus Radiation proctitis Other specified disorder of rectum and anus Blood per rectum Hemorrhage of rectum and anus documented in this encounter [facility] noteNo [employer] Evaluation note* Diagnosis Rectal bleeding- Primary Hemorrhage of rectum and anus documented in this encounter [facility]* Diagnosis Radiation proctitis- Primary Other specified disorder of rectum and anus documented in this encounter [facility]* Diagnosis Dyspnea, unspecified type- Primary documented in this encounter [facility]* Diagnosis 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) documented in this encounter [facility]* Diagnosis Radiation proctitis- Primary Other specified disorder of rectum and anus documented in this encounter [facility]* Diagnosis Endometrial cancer (HCC)- Primary Malignant neoplasm of corpus uteri, except isthmus Radiation proctitis Other specified disorder of rectum and anus Radiation proctitis Other specified disorder of rectum and anus documented in this encounter [facility]* Diagnosis Radiation proctitis- Primary Other specified disorder of rectum and anus documented in this encounter [facility]* Diagnosis ILD (interstitial lung disease) (HCC)- Primary Postinflammatory pulmonary fibrosis Radiation proctitis Other specified disorder of rectum and anus documented in this encounter [facility] note* Diagnosis ILD (interstitial lung disease) (HCC) Postinflammatory pulmonary fibrosis Radiation proctitis Other specified disorder of rectum and anus documented in this encounter [facility] note* Diagnosis Interstitial pulmonary disease (HCC) Postinflammatory pulmonary fibrosis Radiation proctitis Other specified disorder of rectum and anus documented in this encounter [facility] note* Diagnosis Dyspnea and respiratory abnormalities- Primary Other dyspnea and respiratory abnormality Calcified nodule Localized superficial swelling, mass, or lump Iron deficiency anemia due to chronic blood loss Iron deficiency anemia secondary to blood loss (chronic) Radiation proctitis Other specified disorder of rectum and anus documented in this encounter [facility] note* Diagnosis Dyspnea, unspecified type Radiation proctitis Other specified disorder of rectum and anus documented in this encounter [facility] note* Diagnosis Pre-op evaluation- Primary Preoperative examination, unspecified Radiation proctitis Other specified disorder of rectum and anus documented in this encounter [facility] note* Diagnosis Interstitial pulmonary disease (HCC) Postinflammatory pulmonary fibrosis documented in this encounter [facility] note* Diagnosis Radiation proctitis- Primary Other specified disorder of rectum and anus Endometrial cancer (HCC) Malignant neoplasm of corpus uteri, except isthmus documented in this encounter [facility] general Narrative - Reported* Type Description Date Medical History menopause Medical History endometrial cancer hx Surgical History Bilateral Knee Scope Surgical History Bilateral Shoulder Scope Surgical History Bilateral Carpal Tunnel Surgical History x 3 Surgical History Pituatary Tumor Surgical History hysterectomy Surgical History right thumb excision of trapezi 09/14/2020 [employer] Other History general Narrative - Reported* Type Description Date Medical History menopause Medical History endometrial cancer hx Surgical History Bilateral Knee Scope Surgical History Bilateral Shoulder Scope Surgical History Bilateral Carpal Tunnel Surgical History x 3 Surgical History Pituatary Tumor Surgical History hysterectomy Surgical History right thumb excision of trapezi 09/14/2020 Hospitalization History see surgical history [employer] Other [employer] general Narrative - Reported* Type Description Date Medical History menopause Medical History endometrial cancer hx Medical History Dilated Cardiomyopathy Surgical History Bilateral Knee Scope Surgical History Bilateral Shoulder Scope Surgical History Bilateral Carpal Tunnel Surgical History x 3 Surgical History Pituatary Tumor Surgical History hysterectomy Surgical History right thumb excision of trapezi um 09/14/2020 Hospitalization History see surgical history [employer] Other Hisajar general Narrative - Reported* Type Description Date Medical History menopause Medical History endometrial cancer hx Medical History Dilated Cardiomyopathy Surgical History Bilateral Knee Scope Surgical History Bilateral Shoulder Scope Surgical History Bilateral Carpal Tunnel Surgical History x 3 Surgical History Pituatary Tumor Surgical History hysterectomy Surgical History right thumb excision of trapezi um 09/14/2020 Surgical History Sigmoidoscopy 08/2023 Hospitalization History see surgical history [employer] Other [employer] general Narrative - Reported* Type Description Date [...] Sigmoidoscopy 08/2023 Hospitalization History see surgical history [employer] Other Hospital Discharge instructions* Attachments The following attachments cannot be sent through Care Everywhere. * Dehydration (Nepali) * Oral Rehydration (Nepali) documented in this [facility] Work Phone: reason for referral (narrative)* Outpatient Procedure (Routine) - Closed Specialty Diagnoses / Procedures Referred By Kelly alberts Referred To [facility] Diagnoses Rectal bleeding Procedures COLONOSCOPY SCREENING COLONOSCOPY FLX DX W/COLLJ SPEC WHEN Ernesto Noble APRN.CNP [address] [place] [address] [facility] Disease [address] [address] Referral ID Status Reason Start Date Expiration Date V isits Requested Visits Authorized [id number] Closed Auto-Generate d Referral 08/07/2022 08/07/2023 1 1 [facility] for referral (narrative)* Outpatient Procedure (Routine) - Pending Review Specialty Diagnoses / Procedures Referred By Kelly alberts Referred To Contact [facility] Diagnoses Rectal bleeding Procedures COLONOSCOPY (THERAPEUTIC) COLONOSCOPY FLX ABLATION TUMOR POLYP/OTHER Juan aMnuel Mendoza APRN.CNP [address] [place] [address] [place] [address] [facility] [place] [address] [place] [address] Referral ID Status Reason Start Date Expiration Date Visits Requested Visits Authorized [id number] Pending Review Auto-Generat ed Referral 03/05/2023 03/05/2024 1 1 [facility] for referral (narrative)* Outpatient Procedure (Routine) - Authorized Specialty Diagnoses / Procedures Referred By Contac t Referred To [facility] Diagnoses Other secondary pulmonary hypertension (HCC) Procedures ECHO ECHO TTHRC R-T 2D W/WOM-MODE COMPL SPEC&COLR D Mike Presley MD [address] [place], [place] [id number] [facility] [place] [address] [place] [address] Referral ID Status Reason Start Date Expiration Date Visits Requested Visits Authorized [id number] Authorized Auto-Generat ed Referral 06/27/2023 06/26/2024 1 1 * Diagnostic Procedure Only (Routine) - Pending Review Specialty Diagnoses / Procedures Referred By Contac t Referred To Contact [facility] Diagnoses Other secondary pulmonary hypertension (HCC) Procedures NM LUNG VENT / PERF VQ PULMONARY VENTILATION & PERFUSION IMAGING Mike Presley MD [address] [place] [address] [facility] [address] [phone] Referral ID Status Reason Start Date Expiration Date Visits Requested Visits Authorized [id number] Pending Review Auto-Generat ed Referral 06/27/2023 07/26/2024 1 1 * Outpatient Procedure (Routine) - Pending Review Specialty Diagnoses / Procedures Referred By Contac t Referred To [facility] [place] Diagnoses Interstitial pulmonary disease (HCC) Procedures LUNG VOLUMES Mike Presley MD [address] [place] [address] [place] [address] Referral ID Status Reason Start Date Expiration Date Visits Requested Visits Authorized [id number] Pending Review Auto-Generat ed Referral 06/27/2023 07/26/2024 1 1 * Outpatient Procedure (Routine) - Authorized Specialty Diagnoses / Procedures Referred By Contac t Referred To [facility] [place] Diagnoses Interstitial pulmonary disease (HCC) Procedures LUNG DIFFUSION CAPACITY (DLCO) DIFFUSING CAPACITY Mike Presley MD [address] [place], [place] [id number] [place] [address] Referral ID Status Reason Start Date Expiration Date Visits Requested Visits Authorized [id number] Authorized Auto-Generat ed Referral 06/27/2023 07/26/2024 1 1 * MRI/CT (Routine) - Authorized Specialty Diagnoses / Procedures Referred By Contac t Referred To Contact CT IMAGING Diagnoses Interstitial pulmonary disease (HCC) Procedures CT CHEST WO IVCON DIAGNOSTIC COMPUTED TOMOGRAPHY THORAX W/O CNTRST Mike Presley MD [address] [place] [address] [address] Referral ID Status Reason Start Date Expiration Date Visits Requested Visits Authorized [id number] Authorized Auto-Generat ed Referral 06/27/2023 07/26/2024 1 1 [facility] for referral (narrative)* Outpatient Procedure (Routine) - Authorized Specialty Diagnoses / Procedures Referred By Contac t Referred To Contact [facility] Diagnoses ILD (interstitial lung disease) (HCC) Procedures SPIROMETRY BASELINE ONLY SPMTRY W/VC EXPIRATORY BERNIE W/WO MXML VOL VNTJ Mike Presley MD [address] [place] [address] [place] [phone] Referral ID Status Reason Start Date Expiration Date Visits Requested Visits Authorized [id number] Authorized Auto-Generat ed Referral 3 09/24/2024 1 1 [facility] for visit Narrative* Outpatient Procedure (Routine) - Closed Specialty Diagnoses / Procedures Referred By Kelly alberts Referred To Contact [facility] [place] Diagnoses Rectal bleeding Procedures COLONOSCOPY SCREENING COLONOSCOPY FLX DX W/COLLJ SPEC WHEN PFRMD Ernesto Chacko APRN.DYE LINE OPERATOR [address] [place] [address] [place] [address] Referral ID Status Reason Start Date Expiration Date V isits Requested Visits Authorized [id number] Closed Auto-Generate d Referral 08/07/2022 08/07/2023 1 1 [facility] Summary Purpose Family History No Family History Records FoundNo Family History Records FoundNo Family History Records FoundNo Family History Records FoundNo Family History Records FoundNo Family History Records FoundNo Family History Records Found Advance Directives No Advanced Directives Records FoundDocuments on File Type Date Recorded 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 Trader 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 Advance Directive(s) 08/12/2019 10:47 AM Advance Directive(s) 07/28/2019 9:20 AM Documents on File Type Date Recorded 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 Trader 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 Advance Directive(s) 07/28/2019 9:20 AM Documents on File Type Date Recorded 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 Trader 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 Advance Directive(s) 07/28/2019 9:20 AM Reason for Referral Specialty Diagnoses / Procedures Referred By Kelly alberts Referred To Contact Gastroenterology Diagnoses Rectal bleeding Procedures CONSULT TO GASTROENTEROLOGY OFFICE/OUTPATIENT NEW HIGH MDM 60-74 MINUTES Ernesto Chacko, BETTY.DYE LINE OPERATOR [address] [place] [address] Referral ID Status Reason Start Date Expiration Date Visits Requested Visits Authorized [id number] Authorized PCP Requested Referral 08/07/2022 08/07/2023 1 1 Specialty Diagnoses / Procedures Referred By Contac t Referred To Contact [facility] Diagnoses Rectal bleeding Procedures COLONOSCOPY SCREENING COLONOSCOPY FLX DX W/COLLJ SPEC WHEN PFRMD Ernesto Chacko APRN.DYE LINE OPERATOR [address] [phone] [facility] [place] [address] [phone] Referral ID Status Reason Start Date Expiration Date Visits Requested Visits Authorized [id number] Pending Review Auto-Generat ed Referral 08/07/2022 08/07/2023 1 1 Specialty Diagnoses / Procedures Referred By Biancaac t Referred To Contact CT IMAGING Diagnoses Interstitial pulmonary disease (HCC) Procedures CT CHEST WO IVCON DIAGNOSTIC COMPUTED TOMOGRAPHY THORAX W/O CNTRST Mike Presley MD [address] [place] [id number] Imaging [place] [address] Referral ID Status Reason Start Date Expiration Date V isits Requested Visits Authorized [id number] Closed Auto-Generate d Referral 06/27/2023 07/26/2024 1 1 Reason Iron deficiency anem ia Diagnosis 1 Iron deficiency anem ia due to chronic blood loss (D50.0) Referral Organization [facility] Referring Provider First Name Roland Referring Provider Last Name Maggie Referring Provider Specialty Internal Me dicine Referred Organization [facility] Referred Provider NGA TATUM Referred Address [address] [place], [place],[address] Referred Provider Specialty Hematology Referral Priority Routine General Notes Mrs. Waddell is being r eferred for symptomatic iron deficiency anemia. 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 She has completed endoscopic treatment for her chronic bleeding and has received 2 units of PRBC while at [facility] for her procedure. I am referring Mrs. [...] DATE [facility] DATE CREATED AUTHOR AUTHOR'S ORGANIZ ATION 11/23/2021 [facility] DATE CREATED AUTHOR AUTHOR'S ORGANIZ ATION 03/20/2022 [facility] DATE CREATED AUTHOR AUTHOR'S ORGANIZ ATION 03/28/2023 [facility] DATE CREATED AUTHOR AUTHOR'S ORGANIZ ATION 08/25/2023 [facility] DATE CREATED AUTHOR AUTHOR'S ORGANIZ ATION 10/09/2023 [facility] DATE CREATED AUTHOR AUTHOR'S ORGANIZ ATION 03/06/2024 [facility] dical Specialists EPIC Reason for Visit (unrecogniz [...] Rectal bleeding Procedures CONSULT TO GASTROENTEROLOGY OFFICE/OUTPATIENT [facility] MDM 60-74 MINUTES Ernesto Chacko, MILK INSPECTOR.DYE LINE OPERATOR [address] [place] [address] Referral ID Status Reason Start Date Expiration Date V isits Requested Visits Authorized [id number] Closed PCP Requested Referral 08/07/2022 08/07/2023 1 1 Reason Comments Spirometry Specialty Diagnoses / Procedures Referred By Contac t Referred To Contact [facility] Diagnoses Dyspnea, unspecified type Procedures SPIROMETRY WITH DILATOR IF OBSTRUCTED BRNCDILAT RSPSE SPMTRY PRE&POST-BRNCDILAT ADMN Pedro Rodarte MD [address] [place] [phone] [facility] [place] [address] [place] [address] Referral ID Status Reason Start Date Expiration Date V isits Requested Visits Authorized [id number] Closed Auto-Generate d Referral 05/23/2023 06/21/2024 1 1 Reason Comments New Reason Comments New Radiation proctitis Specialty Diagnoses / Procedures Referred By Contac t Referred To Contact Colon and Rectal Surgery Diagnoses Radiation proctitis Procedures CONSULT TO COLO-RECTAL SURGERY OFFICE/OUTPATIENT NEW HIGH MDM 60-74 MINUTES Gurpreet Villarreal, MILK INSPECTOR.DYE LINE OPERATOR [address] [place] [address] [place] DO [address] [place] [address] Referral ID Status Reason Start Date Expiration Date V isits Requested Visits Authorized [id number] Closed PCP Requested Referral 05/16/2023 05/15/2024 1 1 Reason Comments Patient Update Specialty Diagnoses / Procedures Referred By Contac t Referred To Contact [facility] Diagnoses ILD (interstitial lung disease) (HCC) Procedures SPIROMETRY BASELINE ONLY SPMTRY W/VC EXPIRATORY BERNIE W/WO MXML VOL VNTJ Mike Presley MD [address] [place] [address] [facility] [place] [address] [place] [address] Referral ID Status Reason Start Date Expiration Date V isits Requested Visits Authorized [id number] Closed Auto-Generate d Referral 08/26/2023 09/24/2024 1 1 Specialty Diagnoses / Procedures Referred By Contac t Referred To Contact [facility] Diagnoses Interstitial pulmonary disease (HCC) Procedures LUNG DIFFUSION CAPACITY (DLCO) DIFFUSING CAPACITY Mike Presley MD [address] [place] [address] [facility] [place] [address] [place] [address] Referral ID Status Reason Start Date Expiration Date V isits Requested Visits Authorized [id number] Closed Auto-Generate d Referral 06/27/2023 07/26/2024 1 1 Reason Comments Radio Gen A21 Reason Comments Pre-Op Exam Specialty Diagnoses / Procedures Referred By Contac t Referred To Contact CT IMAGING Diagnoses Interstitial pulmonary disease (HCC) Procedures CT CHEST WO IVCON DIAGNOSTIC COMPUTED TOMOGRAPHY THORAX W/O CNTRST Mike Presley MD [address] [place] [address] [address] [address] [facility] [place] [address] Referral ID Status Reason Start Date Expiration Date V isits Requested Visits Authorized [id number] Closed Auto-Generate d Referral 06/27/2023 07/26/2024 1 [...] or prosecute any alcohol or drug abuse patient.[facility] the event this information is protected by the Federal Confidentiality of Alcohol and Drug Abuse Patient Records regulations: The Federal rules restrict any use of the information to criminally investigate or prosecute any alcohol or drug abuse patient.[facility] System[facility] the event this information is protected by the Federal Confidentiality of Alcohol and Drug Abuse Patient Records regulations: The Federal rules restrict any use of the information to criminally investigate or prosecute any alcohol or drug abuse patient.[facility] System[facility] the event this information is protected by the Federal Confidentiality of Alcohol and Drug Abuse Patient Records regulations: The Federal rules restrict any use of the information to criminally investigate or prosecute any alcohol or drug abuse patient.[facility] System[facility] the event this information is protected by the Federal Confidentiality of Alcohol and Drug Abuse Patient Records regulations: The Federal rules restrict any use of the information to criminally investigate or prosecute any alcohol or drug abuse patient.[facility] System[facility] the event this information is protected by the Federal Confidentiality of Alcohol and Drug Abuse Patient Records regulations: The Federal rules restrict any use of the information to criminally investigate or prosecute any alcohol or drug abuse patient.[facility] System[facility] the event this information is protected by the Federal Confidentiality of Alcohol and Drug Abuse Patient Records regulations: The Federal rules restrict any use of the information to criminally investigate or prosecute any alcohol or drug abuse patient.[facility] System[facility] the event this information is protected by the Federal Confidentiality of Alcohol and Drug Abuse Patient Records regulations: The Federal rules restrict any use of the information to criminally investigate or prosecute any alcohol or drug abuse patient.[facility] System[facility] the event this information is protected by the Federal Confidentiality of Alcohol and Drug Abuse Patient Records regulations: The Federal rules restrict any use of the information to criminally investigate or prosecute any alcohol or drug abuse patient.[facility] System[facility] the event this information is protected by the Federal Confidentiality of Alcohol and Drug Abuse Patient Records regulations: The Federal rules restrict any use of the information to criminally investigate or prosecute any alcohol or drug abuse patient.[facility] SystemIn the event this information is protected by the Federal Confidentiality of Alcohol and Drug Abuse Patient Records regulations: The Federal rules restrict any use of the information to criminally investigate or prosecute any alcohol or drug abuse patient.[facility] SystemIn the event this information is protected by the Federal Confidentiality of Alcohol and Drug Abuse Patient Records regulations: The Federal rules restrict any use of the information to criminally investigate or prosecute any alcohol or drug abuse patient.[facility] System[facility] the event this information is protected by the Federal Confidentiality of Alcohol and Drug Abuse Patient Records regulations: The Federal rules restrict any use of the information to criminally investigate or prosecute any alcohol or drug abuse patient.[facility] System[facility] the event this information is protected by the Federal Confidentiality of Alcohol and Drug Abuse Patient Records regulations: The Federal rules restrict any use of the information to criminally investigate or prosecute any alcohol or drug abuse patient.[facility] SystemIn the event this information is protected by the Federal Confidentiality of Alcohol and Drug Abuse Patient Records regulations: The Federal rules restrict any use of the information to criminally investigate or prosecute any alcohol or drug abuse patient.[facility] SystemIn the event this information is protected by the Federal Confidentiality of Alcohol and Drug Abuse Patient Records regulations: The Federal rules restrict any use of the information to criminally investigate or prosecute any alcohol or drug abuse patient.[facility] SystemIn the event this information is protected by the Federal Confidentiality of Alcohol and Drug Abuse Patient Records regulations: The Federal rules restrict any use of the information to criminally investigate or prosecute any alcohol or drug abuse patient.[facility] SystemIn the event this information is protected by the Federal Confidentiality of Alcohol and Drug Abuse Patient Records regulations: The Federal rules restrict any use of the information to criminally investigate or prosecute any alcohol or drug abuse patient.[facility] SystemIn the event this information is protected by the Federal Confidentiality of Alcohol and Drug Abuse Patient Records regulations: The Federal rules restrict any use of the information to criminally investigate or prosecute any alcohol or drug abuse patient.[facility] SystemIn the event this information is protected by the Federal Confidentiality of Alcohol and Drug Abuse Patient Records regulations: The Federal rules restrict any use of the information to criminally investigate or prosecute any alcohol or drug abuse patient.[facility] SystemIn the event this information is protected by the Federal Confidentiality of Alcohol and Drug Abuse Patient Records regulations: The Federal rules restrict any use of the information to criminally investigate or prosecute any alcohol or drug abuse patient.[facility] SystemIn the event this information is protected by the Federal Confidentiality of Alcohol and Drug Abuse Patient Records regulations: The Federal rules restrict any use of the information to criminally investigate or prosecute any alcohol or drug abuse patient.[facility] SystemIn the event this information is protected by the Federal Confidentiality of Alcohol and Drug Abuse Patient Records regulations: The Federal rules restrict any use of the information to criminally investigate or prosecute any alcohol or drug abuse patient.[facility] SystemIn the event this information is protected by the Federal Confidentiality of Alcohol and Drug Abuse Patient Records regulations: The Federal rules restrict any use of the information to criminally investigate or prosecute any alcohol or drug abuse patient.[facility] Care Teams (unrecognized sec tion and content) Urban Design Consultant Relationship Specialty Start Date End Date Roland Serrano DO PCP - General 09/21/07 Kizzy Galloway RN Specialty Electronics Commodity Manager Radiation Oncology 06/12/21 Urban Design Consultant Relationship Specialty Start Date End Date Roland Serrano DO [facility] 09/21/07 Kizzy [place] [id number] [place] [address] Specialty Electronics Commodity Manager Radiation Oncology 06/12/21 Urban Design Consultant Relationship Specialty Start Date End Date Roland Serrano DO [facility] 09/21/07 [place] [address] [place] [address] Specialty Electronics Commodity Manager Radiation Oncology 06/12/21 Urban Design Consultant Relationship Specialty Start Date End Date Roland Serrano DO [facility] 09/21/07 [place] [address] [place] [address] Specialty Electronics Commodity Manager Radiation Oncology 06/12/21 Urban Design Consultant Relationship Specialty Start Date End Date Roland Serrano DO [facility] General 09/21/07 [place] [address] [place] [address] Specialty Electronics Commodity Manager Radiation Oncology 06/12/21 Urban Design Consultant Relationship Specialty Start Date End Date Roland Serrano DO PCP - General 09/21/07 [place] [address] [place] [address] Specialty Electronics Commodity Manager Radiation Oncology 06/12/21 Urban Design Consultant Relationship Specialty Start Date End Date Roland Serrano DO PCP - General 09/21/07 Kizzy Galloway RN [address] [place] [address] Specialty Electronics Commodity Manager Radiation Oncology 06/12/21 Urban Design Consultant Relationship Specialty Start Date End Date Roland Serrano DO PCP - General 09/21/07 Kizzy Galloway RN [address] [place] [address] Specialty Electronics Commodity Manager Radiation Oncology 06/12/21 Urban Design Consultant Relationship Specialty Start Date End Date Roland Serrano DO PCP - General 09/21/07 Kizzy Galloway RN [address] [place] [address] Specialty Electronics Commodity Manager Radiation Oncology 06/12/21 Urban Design Consultant Relationship Specialty Start Date End Date Roland Serrano DO PCP - General 09/21/07 [place] [address] [place] [address] Specialty Electronics Commodity Manager Radiation Oncology 06/12/21 Urban Design Consultant Relationship Specialty Start Date End Date Roland Serrano DO PCP - General 09/21/07 [place] [address] [place] [address] Specialty Electronics Commodity Manager Radiation Oncology 06/12/21 Urban Design Consultant Relationship Specialty Start Date End Date Roland Serrano DO PCP - General 09/21/07 Kizzy Galloway RN [id number] [place] [address] Specialty Electronics Commodity Manager Radiation Oncology 06/12/21 Urban Design Consultant Relationship Specialty Start Date End Date Roland Serrano DO PCP - General 09/21/07 Kizzy Galloway RN [address] [place] [address] Specialty Electronics Commodity Manager Radiation Oncology 06/12/21 Urban Design Consultant Relationship Specialty Start Date End Date Roland Serrano DO PCP - General 09/21/07 Kizzy Galloway RN [address] [place] [address] Specialty Electronics Commodity Manager Radiation Oncology 06/12/21 Urban Design Consultant Relationship Specialty Start Date End Date Roland Serrano DO PCP - General 09/21/07 Kizzy Galloway RN [address] [place] [address] Specialty Electronics Commodity Manager Radiation Oncology 06/12/21 Urban Design Consultant Relationship Specialty Start Date End Date Roland Serrano DO PCP - General 09/21/07 Kizzy Galloway RN [address] [place] [address] Specialty Electronics Commodity Manager Radiation Oncology 06/12/21 Urban Design Consultant Relationship Specialty Start Date End Date Roland Serrano DO PCP - General 09/21/07 [place] [address] [place] [address] Specialty Electronics Commodity Manager Radiation Oncology 06/12/21 Urban Design Consultant Relationship Specialty Start Date End Date Roland Serrano DO PCP - General 09/21/07 [place] [address] [place] [address] Specialty Electronics Commodity Manager Radiation Oncology 06/12/21 Urban Design Consultant Relationship Specialty Start Date End Date Roland Serrano DO PCP - General 09/21/07 [place] [address] [place] [address] Specialty Electronics Commodity Manager Radiation Oncology 06/12/21 FOR RECORDS PERTAINING TO [...] BE BASED ON THE PRIMARY CLINICAL RECORDS. [facility] [employer] [facility]. provides no warranty or guarantee of the accuracy or completeness of information in this document.
[2024-03-19 09:09] LABS: Basophils Percent Auto 0.3 % (0.2-2.0); Eosinophils Absolute Auto 0.2 10^3/uL (0.0-0.7); Eosinophils Percent Auto 5.7 % (0.9-7.0); Immature Granulocytes Abs Auto 0.01 10^3/uL (0.00-0.03); Immature Granulocytes Pct Auto 0.3 % (0.0-0.5); Lymphocytes Percent Auto 30.9 % (20.5-60.0); Mean Corpuscular HGB Conc 31.7 g/dL (29.9-35.2); Mean Corpuscular Hemoglobin 29.3 pg (26.7-34.0); Mean Corpuscular Volume 92.3 fL (81.0-99.0); Mean Platelet Volume 9.8 fL (9.5-13.5); Monocytes Absolute Auto 0.3 10^3/uL (0.3-0.8); Monocytes Percent Auto 10.2 % (1.7-12.0); Neutrophils Absolute Auto 1.7 10^3/uL (1.4-6.5); Neutrophils Percent Auto 52.6 % (43.0-75.0); Platelet Count 211 10^3/uL (150-450); Red Blood Count 4.44 10^6/uL (4.20-5.40); Red Cell Distribution Width 12.6 % (11.0-15.0); White Blood Count 3.1 10^3/uL (4.0-11.0)
[2024-03-19 09:29] LABS: C Reactive Protein <0.50 mg/dL (<=0.50)
[2024-03-19 09:38] LABS: Erythrocyte Sedimentation Rate 26 mm/hr (<=30)
== END 2024-03-19 08:37 | disposition home or self-care (01) ==
LOC: LAB 08:36
PROVIDERS: PCP Internal Medicine; Visit Provider Orthopaedic Surgery
DX: M25.551 Pain in right hip (principal)
CPT/HCPCS: 36415; 85025; 85652; 86140

== ENCOUNTER 2024-05-03 12:06 | Outpatient (OUT) | payer BC, SELFPAY ==
[2024-05-03 12:25] LABS: Basophils Percent Auto 0.2 % (0.2-2.0); Eosinophils Absolute Auto 0.2 10^3/uL (0.0-0.7); Eosinophils Percent Auto 5.4 % (0.9-7.0); Hematocrit 40.6 % (36.0-48.0); Hemoglobin 13.1 g/dL (12.0-16.0); Immature Granulocytes Abs Auto 0.01 10^3/uL (0.00-0.03); Immature Granulocytes Pct Auto 0.2 % (0.0-0.5); Lymphocytes Absolute Auto 1.3 10^3/uL (1.2-3.8); Lymphocytes Percent Auto 29.7 % (20.5-60.0); Mean Corpuscular HGB Conc 32.3 g/dL (29.9-35.2); Mean Corpuscular Hemoglobin 29.2 pg (26.7-34.0); Mean Corpuscular Volume 90.4 fL (81.0-99.0); Mean Platelet Volume 9.6 fL (9.5-13.5); Monocytes Absolute Auto 0.5 10^3/uL (0.3-0.8); Neutrophils Absolute Auto 2.3 10^3/uL (1.4-6.5); Neutrophils Percent Auto 53.5 % (43.0-75.0); Platelet Count 192 10^3/uL (150-450); Red Blood Count 4.49 10^6/uL (4.20-5.40); Red Cell Distribution Width 12.7 % (11.0-15.0); White Blood Count 4.3 10^3/uL (4.0-11.0)
[2024-05-03 12:50] LABS: Thyroid Stimulating Hormone <0.007 uIU/mL (0.358-3.740)
[2024-05-03 13:53] LABS: Free T4 2.46 ng/dL (0.76-1.46)
== END 2024-05-03 12:07 | disposition home or self-care (01) ==
LOC: LAB 12:09
PROVIDERS: PCP Internal Medicine; Visit Provider Internal Medicine Hematology & Oncology
DX: D72.819 Decreased white blood cell count, unspecified (principal); D64.9 Anemia, unspecified; D50.9 Iron deficiency anemia, unspecified; K90.9 Intestinal malabsorption, unspecified
CPT/HCPCS: 36415; 82728; 83540; 83550; 84439; 84443; 85025

== ENCOUNTER 2024-05-04 07:20 | Outpatient (RCR) | payer BC, SELFPAY | END 2024-05-05 12:31 | disposition home or self-care (01) | LOC: INF 07:20 | PROVIDERS: PCP Internal Medicine; Visit Provider Internal Medicine Hematology & Oncology | DX: D72.819 Decreased white blood cell count, unspecified (principal); D64.9 Anemia, unspecified; D50.9 Iron deficiency anemia, unspecified; K90.9 Intestinal malabsorption, unspecified; Z90.710 Acquired absence of both cervix and uterus | CPT/HCPCS: G0463 ==

== ENCOUNTER 2024-05-19 09:28 | Outpatient (OUT) | payer BC, SELFPAY ==
--- NOTE | 2024-05-19 09:31 | US_ITS ---
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 FINDINGS: RIGHT LOBE: Heterogeneous hypervascular gland containing a 2.4 cm TR 3 nodule within mid body and a 2.2 cm TR 3 nodule within inferior pole. Lobe size: 5.5 x 1.7 1.9 cm LEFT LOBE: Heterogeneous hypervascular gland containing multiple nodules. Most notable is a 1.0 cm TR 4 nodule within inferior pole, 0.5 cm TR 4 within mid body, and 1.6 cm TR 3 nodule within inferior pole. Lobe size: 5.1 x 1.3 x 1.5 cm ISTHMUS: Slightly heterogeneous and minimally thickened. Contains a 10 mm TR 4 nodule. Thickness: 4 mm US/US thyroid IMPRESSION: 1. Heterogeneous hypervascular multinodular gland. Follow-up imaging in one year is recommended. TR4 (moderately suspicious): If > 1.0 cm, follow-up ultrasound in 1, 2, 3, and 5 years. If > 1.5 cm, fine needle aspiration (FNA). TR3 (mildly suspicious): > 1.5 cm, follow-up ultrasound in 1, 3, and 5 years. > 2.5 cm, fine needle aspiration. Electronically authenticated by: HENRY LOCK Date: 05/20/2024 05:51
[2024-05-19 14:00] LABS: Thyroid Stimulating Hormone <0.007 uIU/mL (0.358-3.740)
[2024-05-19 14:02] LABS: Free T4 2.49 ng/dL (0.76-1.46)
[2024-05-20 04:07] LABS: Triiodothyronine (T3) 271 ng/dL (71-180)
[2024-05-21 19:08] LABS: Thyroid Stim Immunoglobulin 3.57 IU/L (0.00-0.55)
== END 2024-05-19 09:29 | disposition home or self-care (01) ==
LOC: US 09:29
PROVIDERS: PCP Internal Medicine; Visit Provider Internal Medicine
DX: E05.90 Thyrotoxicosis, unspecified without thyrotoxic crisis or storm (principal)
CPT/HCPCS: 36415; 76536; 84439; 84443; 84445; 84480

== ENCOUNTER 2024-06-25 13:09 | Outpatient (OUT) | payer BC, SELFPAY ==
[2024-06-25 14:39] LABS: Free T4 1.58 ng/dL (0.76-1.46)
[2024-06-25 14:46] LABS: Thyroid Stimulating Hormone <0.007 uIU/mL (0.358-3.740)
[2024-06-26 04:07] LABS: Triiodothyronine (T3) 199 ng/dL (71-180)
== END 2024-06-25 13:10 | disposition home or self-care (01) ==
LOC: LAB 13:10
PROVIDERS: PCP Internal Medicine; Visit Provider Internal Medicine
DX: E05.00 Thyrotoxicosis with diffuse goiter without thyrotoxic crisis or storm (principal)
CPT/HCPCS: 36415; 84439; 84443; 84480

== ENCOUNTER 2024-09-15 13:38 | Outpatient (OUT) | payer BC, SELFPAY ==
[2024-09-15 15:35] LABS: Free T4 0.45 ng/dL (0.76-1.46)
[2024-09-15 15:39] LABS: Thyroid Stimulating Hormone 0.131 uIU/mL (0.358-3.740)
[2024-09-16 11:10] LABS: Triiodothyronine (T3) 78 ng/dL (71-180)
== END 2024-09-15 13:39 | disposition home or self-care (01) ==
LOC: LAB 13:41
PROVIDERS: PCP Internal Medicine; Visit Provider Internal Medicine
DX: E05.00 Thyrotoxicosis with diffuse goiter without thyrotoxic crisis or storm (principal)
CPT/HCPCS: 36415; 84439; 84443; 84480

== ENCOUNTER 2024-11-01 14:21 | Outpatient (OUT) | payer BC, SELFPAY ==
--- NOTE | 2024-11-01 15:00 | XR_ITS ---
The [place] [id number] Patient Name: JOSEPHINE STOVER MRN: [id number] date: 1960 Sex: F Assigned Patient Location: [facility] Current Patient Location: Accession/Order Number: [id number] Exam Date: 11/01/2024 14:45 Report Date: 11/02/2024 08:01 At the request of: DYAN MCCORMACK Procedure: XR lumbar spine 6V w bending EXAMINATION: XR lumbar spine 6V w bending HISTORY: Lumbar Radiculopathy COMPARISON: No relevant comparison available. FINDINGS: BONES: Neutral projection demonstrates normal alignment with no acute fracture or spondylolisthesis. Mild degenerative changes. DISC SPACES: Normal. No significant disc height narrowing, subluxation, or endplate abnormality. PARASPINOUS: Negative. No paraspinous abnormality is seen. OTHER: No dynamic instability XR/XR lumbar spine 6V w bending IMPRESSION: Mild degenerative changes Electronically authenticated by: JACOB IYER Date: 11/02/2024 08:01
== END 2024-11-01 14:22 | disposition home or self-care (01) ==
LOC: RAD 14:23
PROVIDERS: PCP Internal Medicine; Visit Provider Personal Emergency Response Attendant
DX: E05.20 Thyrotoxicosis with toxic multinodular goiter without thyrotoxic crisis or storm (principal); M54.16 Radiculopathy, lumbar region
CPT/HCPCS: 36415; 72114; 84439; 84443

== ENCOUNTER 2024-11-01 14:29 | Outpatient (OUT) | payer BC, SELFPAY ==
[2024-11-01 15:19] LABS: Thyroid Stimulating Hormone 0.781 uIU/mL (0.358-3.740)
[2024-11-01 15:39] LABS: Free T4 0.68 ng/dL (0.76-1.46)
== END 2024-11-01 14:30 | disposition home or self-care (01) ==
LOC: LAB 14:31
PROVIDERS: PCP Internal Medicine; Visit Provider Internal Medicine
DX: E05.20 Thyrotoxicosis with toxic multinodular goiter without thyrotoxic crisis or storm (principal)
CPT/HCPCS: 36415; 84439; 84443

== ENCOUNTER 2024-12-01 07:55 | Outpatient (OUT) | payer BC, SELFPAY ==
--- NOTE | 2024-12-01 07:59 | MR_ITS ---
[address] [address] Patient Name: JOSEPHINE STOVER MRN: [id number] date: 1960 Sex: F Assigned Patient Location: MRI Current Patient Location: MRI Accession/Order Number: [id number] Exam Date: 12/01/2024 08:05 Report Date: 12/01/2024 08:59 At the request of: DYAN MCCORMACK Procedure: MR lumbar spine wo con EXAMINATION: MR lumbar spine wo con HISTORY: Right Lumbar Radiculopathy COMPARISON: No relevant comparison available. TECHNIQUE: A variety of imaging planes and parameters were utilized for visualization of suspected pathology. FINDINGS: For the purposes of numbering, sagittal T2 image # 8 extends from the T11 vertebral body superiorly to the S3 level inferiorly. PARASPINAL AREA: Normal with no visible mass. BONES: Normal alignment with no acute fracture or spondylolisthesis. Signal abnormality noted in the L5 and S1 vertebral bodies, Modic 1 change favored. Area of signal abnormality in the L2 vertebral body hemangioma is favored CORD/CAUDA EQUINA: Normal caliber, contour, and signal intensity. DISC LEVELS: 12-L1: No significant disc/facet abnormality, spinal stenosis, or foraminal stenosis. L1-L2: No significant disc/facet abnormality, spinal stenosis, or foraminal stenosis. L2-L3: No significant disc/facet abnormality, spinal stenosis, or foraminal stenosis. L3-L4: No significant disc/facet abnormality, spinal stenosis, or foraminal stenosis. L4-L5: Mild disc desiccation. No disc bulge or herniation. No central or foraminal stenosis L5-S1: Disc collapse with endplate sclerosis. Modic 1 changes right inferior L5 and superior S1 vertebral bodies. Mild diffuse disc/osteophyte complex and facet osteoarthropathy. No central canal stenosis. No foraminal stenosis MR/MR lumbar spine wo con IMPRESSION: Moderate degenerative changes L5-S1 with no central or foraminal stenosis Electronically authenticated by: JACOB IYER Date: 12/01/2024 08:59
--- OUTSIDE RECORDS SUMMARY | 2024-12-01 08:19 | XMS_ITS | CCD ---
Author Organization [facility] Care Team Providers Care Storeroom Keeper Name Role Phone Roland Serrano DO Primary [...] Attending Unavailable MAGGIE, DR YOUSSEF Consulting Unavailable ZIEBER, DR HENRY [...] Attending Unavailable MAGGIE, DR YOUSSEF Consulting Unavailable MONTCHANIN, DR JACOB Parrish Consulting Unavailable Galloway RN, Kizzy Unavailable BALL, ROLAND E Primary Care Unavailable LESSA CISNEROS JAY, MIKE Referring Unava ilable Ball DO, Roland E Primary Care Provider Inocencio SHELTON, Kathryn Philippe Unavailable Unavaila ble MELODY MENA Attending Unavailable BALL, ROLAND E Primary Care Unavailable RACHEL, HENRY Gibbs Referring Unavailable BALL, ROLAND E Primary Care Unavailable PEDRO RODARTE Referring Unavailable BALL, ROLAND E Primary Care Unavailable LESSA CISNEROS JAY, MIKE Referring Unava ilable BALL, ROLAND E Primary Care Unavailable LESSA CISNEROS JAY, MIKE Referring Unava ilable BALL, ROLAND E Primary Care Unavailable JAYANTSOUTH FELIX Admitting Unavailable JAYANT, SOUTH Philippe Attending Unavailable LESSA CISNEROS JAY, MIKE Referring Unava ilable BALL, ROLAND E Primary Care Unavailable HEIDI MENARD Attending Unavailab le BALL, ROLAND E Primary Care Unavailable ELDER GALAN Attending Unavailable JAYANT, SOUTH Philippe Referring Unavailable BALL, [...] Unavailable BALL, ROLAND E Primary Care Unavailable RACHEL, HENRY E Attending Unavailable RACHEL, HENRY Gibbs Referring Unavailable Ball Roland SIEGEL Primary Care Provider JR. LAURA, MARY Chase Attending Unavaila ble JR. LAURA, MARY Chase Referring Unavaila ble JR. LAURA, MARY Chase Attending Unavaila ble JR. LAURA, MARY Chase Attending Unavaila ble JR. LAURA, MARY Chase Referring Unavaila ble JR. LAURA, MARY Chase Attending Unavaila ble LEIGH VALENZUELA Attending Unavailable DYAN ROBB Attending Unavailable DYAN ROBB Referring Unavailable Allergies Allergy Classification Reported Allergen(s) Allergy Type Date of Onset Reaction(s) Facility (6 sources) patient allergy list reviewed by nurse or physicia Propensity to adverse reactions 8 Comment:Done [employer] Other (6 sources) Allergies Reconciled Propensity to adverse reactions Unknown [employer] Other Medications Current Medications Medication Drug Class(es) Dates Sig (Normalized) Sig (Original) acetaminophen 500 mg oral tablet (6 sources) Start: 09-02-2023 take 500-1000 mg by mouth every six hours as needed acetaminophen (TYLENOL) 500 mg tablet Take 1-2 tablets by mouth every 6 hours as needed for pain. Do not exceed 3-4g/24hr. 09/02/2023 Active Comment on above: Take 1-2 tablets by mouth every 6 hours as needed for pain. Do not exceed 3-4g/24hr. [id number] 200 actuat albuterol 0.09 mg/actuat metered dose inhaler (20 sources) beta2-Adrenergic Agonist Start: 05-04-2024 take 1 puff(s) by inhalation every four hours as needed Albuterol Sulfate 90 mcg/actuation HFA aerosol inhaler Active 2 PUFF INHALATION Every 4 hours as needed May 03, 2024 11:00pm Start: 04-23-2023 take 2 puff(s) by in halation every four hours as needed for cough albuterol HFA (PROVENTIL HFA, VENTOLIN HFA) 90 mcg/actuation inhaler INHALE 2 PUFFS EVERY 4 HOURS NEEDED FOR COUGH OR SHORTNESS OF BREATH FOR 30 DAYS 06/17/2023 Active Start: 04-23-2023 take 2 puff(s) by [...] SOB for 30 days Apr, Active Start: 01-20-2023 take 2 puff(s) by [...] SHORTNESS OF BREATH FOR 30 DAYS amoxicillin 875 mg oral tablet (10 sources) Penicillin-class Antibacterial Start: take 1 tablet by mouth twice daily Amoxicillin 875 mg tablet Active 875 MG PO Twice daily 30 05November 26, 2024 12:00am Start: 05-13-2023 take 4 capsules by m outh every hour Amoxicillin 500 MG 4 capsules Orally 1 hour prior to dental appt for 1 day Apr, Active Start: 01-20-2023 take 1 tablet by corinne th every twelve hours Amoxicillin 875 MG 1 tablet Orally every 12 hrs for 7 days Jan, Active azithromycin 250 mg oral tablet (20 sources) Macrolide Antimicrobial Start: 05-04-2024 Azithromycin 250 mg tablet Active 250 MG PO daily 04 21May 03, 2024 11:00pm take 2 today and then 1 for the next 4 days Start: 08-04-2023 Azithromycin 2 50 MG as directed Orally daily for 5 days Jul, Active Start: 01-24-2023 Azithromycin 2 50 MG as directed Orally daily for 5 days Jan, Active B COMPLEX VITAMINS CAP (20 sources) Start: 03-31-2008 B COMPLEX ASMITA MINS CAP Take one(1) capsule daily. 0 03/31/2008 Active Comment on above: Take one(1) capsule daily. Calcium (20 sources) Phosphate Binder, Calcium Start: 08-14-2018 Calcium 1 tab Oral Jul, Active calcium carbonate 1500 mg oral tablet (4 sources) Start: 09-06-2020 take 1 tablet by mouth twice daily Calcium Carbonate (Calcium 600) 600 mg calcium (1,500 mg) Tablet Active 600 MG PO Twice daily September 05, 2020 11:00pm Start: 06-29-2019 End: 09-06-2020 take 1 tablet by mouth twice daily Calcium Carbonate (Calcium 500) 500 mg calcium (1,250 mg) Tablet Discontinued 500 MG PO Twice daily June 28, 2019 11:00pm September 06, 2020 7:55am CALCIUM CARBONATE-VIT D3-MINERALS 600 MG-400 UNIT TAB [...] (20 sources) alpha-Adrenergic Alisa, beta-Adrenergic Alisa Start: 07-30-2024 take 1 tablet by mouth twice daily Carvedilol 25 mg tablet Active 0 .ROUTE .COMPLEX 60 July 30, 2024 11:49am TAKE ONE TABLET BY MOUTH TWICE A DAY Start: 09-06-2020 End: 07-30-2024 take 1 tablet by mouth twice daily Carvedilol 25 mg tablet Discontinued 25 MG PO Twice daily September 05, 2020 11:00pm July 30, 2024 11:49am Start: 06-29-2019 End: 09-06-2020 take 1 tablet by mouth twice daily Carvedilol 12.5 mg tablet Discontinued 12.5 MG PO Twice daily June 28, 2019 11:00pm September 06, 2020 7:55am Comment on above: Take 1 tablet by corinne twice daily. celecoxib 200 mg oral capsule (6 sources) Nonsteroidal Anti-inflammatory Drug Start: 4 End: 4 celecoxib (CeleBREX) 200 MG capsule 04/28/2024 11/01/2024 Discontinued (Med list cleanup) cholecalciferol, vitD3,/vit K2 (VITAMIN D3-VITAMIN K2 ORAL) (3 sources) take 1 tablet by mouth once daily cholecalciferol, vitD3,/vit K2 (VITAMIN D3-VITAMIN K2 ORAL) Take 1 tablet by mouth once daily. Plus vitamin A and K1 Active diclofenac sodium 0.01 mg/mg topical gel (10 sources) Nonsteroidal Anti-inflammatory Drug Start: 0 Voltaren 1 % as directed Transdermal BID for 30 days Jul, Active enteric contrast (will be provided with radiology test) (20 sources) Start: 1 enteric contrast (will be provided with radiology test) For CT CHESTABD/PEL W IVCON Routine order Administer, As Directed One Time Only, via Oral, Rectal, both Oral and Rectal, Enteric Tube, Stoma or Indwelling Catheter, Enteric Contrast as designated per enteric contrast guidelines 1 Each 05/29/2021 Active Start: 05-29-[address] (will be provided with radiology test) For [...] Contrast as designated per enteric contrast guidelines Estradiol-Norethind lorene Acet 0.05-0.14 MG/DAY (10 sources) Start: 08-14-20 apply 0.05-0.14 mg transdermal route once daily Estradiol-Norethin drone Acet 0.05-0.14 MG/DAY 1 patch to skin Transdermal Two times a Week Jul, Active Estroven (10 sources) Start: 08-14-20 18 Estroven Jul, Active ferrous sulfate 28 mg oral tablet (3 sources) take 28 mg by mouth once daily ferrous sulfate (IRON ORAL) Take 28 mg by mouth once daily. Active fluticasone propionate 0.05 mg/actuat metered dose nasal spray (8 sources) Corticosteroid Start: 01-21-20 take 1 spray(s) nasal route once daily Fluticasone Propionate 50 MCG/ACT 1 spray in each nostril Nasally Once a day for 21 days Jan, Active Fluticasone Propion-Salmeterol (20 sources) Corticosteroid, beta2-Adrenergic Agonist Start: 05-04-20 24 Fluticasone Propion-Salmeterol 250-50 mcg/dose blister with device Active 1 INH INHALATION Twice daily May 03, 2024 11:00pm Start: 05-04-2024 Fluticasone Pr opion-Salmeterol Active 1 INH INHALATION Twice daily May 04, 2024 12:00am Start: 03-25-2023 take 1 puff(s) by in halation twice daily ADVAIR DISKUS 250-50 mcg/dose inhaler INHALE 1 PUFF TWICE A DAY FOR 30 DAYS 05/12/2023 Active Comment on above: INHALE 1 PUFF TWICE A DAY FOR 30 DAYS formaldehyde 370 mg/ml topical solution (1 source) Standardized Chemical Allergen Start: 3 End: 3 formaldehyde, bulk, 37 % soln 240 mL as directed for 1 day. 240 mL 0 09/02/2023 09/03/2023 Active Comment on above: 240 mL as directed f or 1 day. ibuprofen 800 mg oral tablet (20 sources) Nonsteroidal Anti-inflammatory Drug Start: 4 take 1 tablet by mouth three times daily as needed Ibuprofen 800 mg tablet Active 800 MG PO Three times daily as needed May 03, 2024 11:00pm Start: 08-11-2020 End: 08-20-2021 take 1 tablet by mouth every eight hours as needed for pain Ibuprofen 800 mg tablet Discontinued 800 MG PO Q8H as needed for Pain September 05, 2020 11:00pm August 20, 2021 10:25am Start: 08-11-2020 take 1 tablet by corinne th three times daily at mealtime as needed Ibuprofen 800 MG 1 tablet with food or milk as needed Orally Three times a day for 30 days Jul, Active Start: 06-29-2019 End: 09-06-2020 take 4 tablets by mouth every twenty-four hours for pain Ibuprofen 600 mg tablet Discontinued 600 MG PO Every 6 hours as needed for pain June 28, 2019 11:00pm September 06, 2020 7:56am do not exceed 4 doses in a 24 hour period Comment on above: Take by mouth q 8 HR . iv contrast (will be provided with radiology test) (20 sources) Start: 05-29-2021 iv contrast (will be provided with radiology [...] CT contrast administration guidelines link. 1 Each 05/29/2021 Active Start: 05-29-2021 iv contrast (w ill be provided with radiology test) CT Chest [...] (PROBIOTIC-10 ORAL) Take by mouth once daily. Active Lactobac no.41/B ifidobact no.7 (PROBIOTIC-10 ORAL) Take by mouth once daily. 0 Active Comment on above: Take by mouth once d aily. Lactobacillus Combination No.4 (Probiotic) 3 billion cell capsule (2 sources) Start: take 3 capsules by mouth once daily Lactobacillus Combination No.4 (Probiotic) 3 billion cell capsule Active 3000 MMU CELLS PO Daily May 03, 2024 11:00pm administer with a meal Start: 05-04-2024 take 3 capsules by m outh once daily Lactobacillus Combination No.4 (Probiotic) 3 billion cell capsule Active 3000 MMU CELLS PO Daily May 04, 2024 12:00am administer with a meal lidocaine 0.05 mg/mg medicated patch (10 sources) Antiarrhythmic, Amide Local Anesthetic Start: 08-11-2020 Lidocaine 5 % 1 patch remove after 12 hours Externally Once a day Jul, Active Magnesium (3 sources) take 240 mg by mouth twice daily MAGNESIUM ORAL Take 240 mg by mouth two times a day. Active methIMAzole 10 mg oral tablet (20 sources) Thyroid Hormone Synthesis Inhibitor Start: 09-16-2024 take 1 tablet by mouth once daily Methimazole 10 mg tablet Active 10 MG PO Daily 60 September 16, 2024 2:28pm Start: 08-30-2024 End: 09-16-2024 take 2 tablets by mouth once daily Methimazole 10 mg tablet Discontinued 0 .ROUTE .COMPLEX 60 August 30, 2024 4:55pm September 16, 2024 2:28pm TAKE TWO TABLETS BY MOUTH DAILY FOR 30 DAYS Start: 07-02-2024 take 1 tablet by corinne th twice daily methIMAzole (TAPAZOLE) 10 mg tablet Take 10 mg by mouth two times a day. 07/02/2024 Active Start: 05-26-2024 End: 08-30-2024 take 2 tablets by mouth once daily Methimazole 10 mg tablet Discontinued 20 MG PO Daily 60 June 02, 2024 10:57am August 30, 2024 4:56pm Start: 05-26-2024 End: 06-02-2024 take 20 mg by mouth once daily Methimazole Active 20 M G PO Daily 60 June 02, 2024 11:57am Start: 05-26-2024 End: 05-26-2024 take 1 tablet by mouth once daily Methimazole 10 mg tablet Discontinued 10 MG PO Daily May 25, 2024 11:00pm May 26, 2024 5:15pm Start: 09-06-2020 End: 08-20-2021 take 1 tablet by mouth twice daily Methimazole 5 mg tablet Discontinued 5 MG PO Twice daily September 05, 2020 11:00pm August 20, 2021 10:25am take 1 tablet by corinne th every twenty-four hours methIMAzole 10 MG 1 tablet Orally Once a day Active methylPREDNISolone (14 sources) Corticosteroid Start: 05-12-2024 End: 11-01-2024 methylPREDNISolone (Medrol Dospak) 4 MG tablets Indications: Trochanteric bursitis of right hip Follow schedule on package instructions 21 tablet 05/12/2024 11/01/2024 Discontinued (Med list cleanup) Start: 05-12-2024 methylPREDNISo lone (Medrol Dospak) 4 MG tablets Indications: Trochanteric bursitis of right hip Follow schedule on package instructions 21 tablet 05/12/2024 Active Start: 01-20-2023 methylPREDNISo lone 4 MG as directed Orally Once a day for 6 days Jan, Active Multivitamin Adult - (20 sources) Start: 08-14-2018 Multivitamin A dult - Orally Jul, Active Multivitamin preparation (1 source) Start: 06-29-2019 take 1 tablet by mouth once daily Multivitamin Active 1 TAB PO Daily June 29, 2019 12:00am MULTIVITAMIN TAB (20 sources) Start: 03-31-2008 MULTIVITAMIN T AB Take by mouth. 0 03/31/2008 Active Start: 03-31-2008 MULTIVITAMIN T AB Take one(1) tablet daily. 0 03/31/2008 Active Comment on above: Take one(1) tablet d aily. Take by mouth. Multivitamin Tablet (1 source) Start: 06-29-20 take 1 tablet by mouth once daily Multivitamin Tablet Active 1 TAB PO Daily June 28, 2019 11:00pm mupirocin 0.02 mg/mg topical ointment (6 sources) RNA Synthetase Inhibitor Antibacterial Start: 03-04-20 Mupirocin 2 % 1 application Externally Twice a day for 10 days Feb, Active [id number]-[id number]-FISH OIL-L.CASEI ORAL (20 sources) [id number] SH OIL-L.CASEI ORAL Take by mouth once daily. Active [id number] SH OIL-L.CASEI ORAL Take by mouth once daily. 0 Active Comment on above: Take by mouth once d aily. perflutren lipid microspheres 1.3 mL in NaCl (PF) 0.9% 10 mL injection (DEFINITY) (19 sources) Start: 06-27-2023 End: 09-25-2024 perflutren lipid microspheres 1.3 mL in NaCl (PF) 0.9% 10 mL injection (DEFINITY) Probiotic - (20 sources) Start: 08-14-2018 Probiotic - Orally Jul, Active 125 ml sodium chloride 9 mg/ml prefilled syringe (20 sources) Start: 06-27-2023 End: 09-25-2024 sodium chloride 0.9 % (flush) 10 mL [...] sources) Serotonin and Norepinephrine Reuptake Inhibitor Start: 07-08-2024 take 1 capsule by mouth once daily at mealtime Venlafaxine 150 mg capsule,extended release 24hr Active 0 .ROUTE .COMPLEX July 08, 2024 6:45pm TAKE ONE CAPSULE BY MOUTH DAILY WITH FOOD Start: 01-07-2024 End: 05-04-2024 take 1 capsule by mouth once daily at mealtime Venlafaxine 150 mg capsule,extended release 24hr Discontinued 0 .ROUTE .COMPLEX January 07, 2024 8:29pm May 04, 2024 6:55am TAKE ONE CAPSULE BY MOUTH DAILY WITH FOOD Start: 09-06-2020 End: 01-07-2024 take 1 tablet by mouth once daily at bedtime Venlafaxine 150 mg Tablet Extended Release 24hr Discontinued 150 MG PO Daily at bedtime September 05, 2020 11:00pm January 07, 2024 8:29pm Start: 06-23-2019 End: 07-08-2024 take 1 capsule by mouth once daily Venlafaxine 150 mg capsule,extended release 24hr Discontinued 150 MG PO Daily May 04, 2024 6:53am July 08, 2024 6:45pm take 1 tablet by mouth once venl afaxine (EFFEXOR) 25 MG tablet Take 25 mg by mouth once 0 Active Comment on above: Take 150 mg by mouth daily at bedtime. Vitamin B Complex (20 sources) Start: 09-06-2020 take 1 tablet by mouth once daily Vitamin B Complex Active 1 TAB PO Daily September 06, 2020 12:00am Start: 08-14-2018 Vitamin B Comp hayley - Orally Jul, Active Vitamin B Complex Tablet Extended Release (1 source) Start: 09-06-2020 take 1 tablet by mouth once daily Vitamin B Complex Tablet Extended Release Active 1 TAB PO Daily September 05, 2020 11:00pm Completed/Discontinued Medications Medication Drug Class(es) Dates Sig (Normalized) Sig (Original) acetaminophen 325 mg / HYDROcodone bitartrate 5 mg oral tablet (10 sources) Opioid Agonist Start: 09-14-2020 End: 08-20-2021 take 1 tablet by mouth every four to six hours as needed for pain Hydrocodone-Acetami nophen ([place]) 5-325 mg tablet Discontinued 1 - 2 TAB PO EVERY 4-6 HOURS as needed for Pain 50 7 September 14, 2020 August 20, 2021 10:25am take 1-2 tablets by mouth every six hours as needed HYDROcodone-Acetaminophen 5-325 MG 1-2 t ablet as needed Oral every 6 hrs for 7 days Active acetaminophen 325 mg / oxyCODONE hydrochloride 5 mg oral tablet (4 sources) Opioid Agonist Start: 08-20-2021 End: 05-04-2024 take 1 tablet by mouth every six hours as needed for pain Oxycodone-Acetaminophen (Percocet) 5-325 mg tablet Discontinued 1 TAB PO Q6H as needed for left hip pain 13 06November 02, 2021 May 04, 2024 6:53am ascorbic acid 500 mg oral tablet (20 sources) Vitamin C Start: 08-20-2021 End: 05-04-2024 take 1 tablet by mouth once daily Ascorbic Acid (Vitamin C) (Vitamin C) 500 mg Tablet Discontinued 500 MG PO Daily August 19, 2021 11:00pm May 04, 2024 6:54am Comment on above: Take 500 mg by mouth once daily. dicyclomine hydrochloride 10 mg oral capsule (20 sources) Anticholinergic Start: 07-10-2021 End: 06-10-2024 take 1 capsule by mouth once daily as needed Dicyclomine 10 mg capsule Discontinued 10 MG PO Daily as needed for abdominal cramping August 19, 2021 11:00pm June 10, 2024 4:41pm Start: 06-29-2019 End: 09-06-2020 take 1 tablet by mouth four times daily as needed Dicyclomine 20 mg Tablet Discontinued 20 MG PO Four times daily as needed for IBS June 28, 2019 11:00pm September 06, 2020 7:56am take 1 capsule by mo uth four times daily before mealtime dicyclomine (BENTYL) 10 MG capsule Take 10 mg by mouth 4 times daily (before meals and nightly) 0 Active Comment on above: Take 1 capsule by mo uth before meals and at bedtime. As needed. doxycycline hyclate 100 mg oral tablet (4 sources) Tetracycline-clas s Drug Start: 0 End: 1 take 1 tablet by mouth twice daily as needed Doxycycline Hyclate 100 mg tablet Discontinued 100 MG PO Twice daily as needed for abdominal cramping August 20, 2021 10:26am August 20, 2021 10:27am folic acid 1 mg / polysaccharide iron complex 150 mg / vitamin b12 0.025 mg oral capsule (2 sources) Vitamin B12 Start: 1 End: 4 take 1 capsule by mouth once daily Iron Ps [id number] Acid (Poly-Iron 150 Forte) 150-25-1 mg-mcg-mg capsule Discontinued 1 CAP PO Daily August 19, 2021 11:00pm May 04, 2024 6:53am Lactobacillus Combination No.4 (Probiotic) 3 billion cell Capsule (2 sources) Start: 9 End: 0 Lactobacillus Combination No.4 (Probiotic) 3 billion cell Capsule Discontinued 1 CAP PO Daily June 28, 2019 11:00pm September 06, 2020 7:56am Start: 06-29-2019 End: 09-06-2020 Lactobacillus Combination No .4 (Probiotic) 3 billion cell Capsule Discontinued 1 CAP PO Daily June 29, 2019 12:00am September 06, 2020 8:56am meclizine hydrochloride 12.5 mg oral tablet (1 source) Antiemetic Start: 07-07-2021 End: 07-07-2021 meclizine (ANTIVERT) tablet 25 mg meloxicam 15 mg oral tablet (3 sources) Nonsteroidal Anti-inflammatory Drug Start: 08-20-2021 End: 05-04-2024 take 1 tablet by mouth once daily as needed for pain Meloxicam 15 mg tablet Discontinued 15 MG PO Daily as needed for Pain August 19, 2021 11:00pm May 04, 2024 6:53am Start: 06-13-2021 take 1 tablet by corinne th once daily meloxicam (MOBIC) 15 MG tablet Take 1 tablet by mouth daily 0 06/13/2021 Active [place] 7-Hmk-Jwy-Fish Oil (Fish Oil) 1,000 mg (120 mg-180 mg) Capsule (2 sources) Start: 10-15-2021 End: 11-01-2021 take 1 capsule by mouth twice daily [place] 3-Drp-Vvg-Fish Oil (Fish Oil) 1,000 mg (120 mg-180 mg) Capsule Discontinued 1 CAP PO Twice daily October 15, 2021 12:00am November 01, 2021 8:04pm Start: 10-15-2021 End: 11-01-2021 take 1 capsule by mouth twice daily [place] 1-Eum-Qar-Fish Oil (Fish Oil) 1,000 mg (120 mg-180 mg) Capsule Discontinued 1 CAP PO Twice daily October 15, 2021 1:00am November 01, 2021 9:04pm [place] 0-Ctr-Loa-Fish Oil (Fish Oil) 60-90-500 mg Capsule (2 sources) Start: 09-06-2020 End: 08-20-2021 take 1 capsule by mouth once daily [place] 9-Fzn-Kjd-Fish Oil (Fish Oil) 60-90-500 mg Capsule Discontinued 1 CAP PO Daily September 05, 2020 11:00pm August 20, 2021 10:26am Start: 09-06-2020 End: 08-20-2021 take 1 capsule by mouth once daily [place] 5-Wfd-Rhy-Fish Oil (Fish Oil) 60-90-500 mg Capsule Discontinued 1 CAP PO Daily September 06, 2020 12:00am August 20, 2021 11:26am ondansetron 8 mg oral tablet (3 sources) Serotonin-3 Receptor Antagonist Start: 08-20-2021 End: 10-15-2021 Ondansetron Hcl 8 mg tablet Discontinued 8 MG PO As Directed as needed for Nausea August 19, 2021 11:00pm October 15, 2021 10:47am Start: 06-21-2021 ondansetron (Z OFRAN) 8 MG tablet Take 8 mg by mouth 0 06/21/2021 Active polyethylene glycol [id number] [id number] mg / potassium chloride 2970 mg / sodium bicarbonate 6740 mg / sodium chloride 5860 mg / sodium sulfate 07078 mg powder for oral solution (1 source) [...] Jul, 40 mg Turmeric extract (20 sources) Start: 09-06-2020 End: 05-04-2024 take 1 capsule by mouth once daily Turmeric 400 mg Capsule Discontinued 400 MG PO Daily September 05, 2020 11:00pm May 04, 2024 6:53am Start: 09-06-2020 End: 05-04-2024 take 400 mg by mouth once daily Turmeric Discontinued 400 MG PO Daily September 06, 2020 12:00am May 04, 2024 7:53am take 1000 mg by mout h once daily TURMERIC ORAL Take 1,000 mg by mouth once daily. Active take 1000 mg by mout h once daily TURMERIC ORAL Take 1,000 mg by mouth once daily. 0 Active Comment on above: Take 1,000 mg by corinne th once daily. vitamin b12 1 mg oral tablet (2 sources) Vitamin B12 Start: 06-29-2019 End: 09-06-2020 Cyanocobalamin (Vitamin B-12) (Vitamin B-12) 1,000 mcg Tablet Discontinued 1000 MG PO Daily June 28, 2019 11:00pm September 06, 2020 7:56am Zygest (1 source) Start: 09-06-2020 End: 08-20-2021 take 1 capsule by mouth once daily Zygest Discontinued 1 CAP PO Daily September 06, 2020 12:00am August 20, 2021 11:27am Zygest 1 capsule (1 source) Start: 09-06-2020 End: 08-20-2021 take 1 capsule by mouth once daily Zygest 1 capsule Discontinued 1 CAP PO Daily September 05, 2020 11:00pm August 20, 2021 10:27am Problems Active Problems Problem Classification Problem Date Documented Da te Episodic/Chronic Acute bronchitis (1 source) Acute bronchitis due to other specified organisms Episodic Anxiety disorders (20 sources) Generalized anxiety disorder; Translations: [Generalized anxiety disorder] Onset: 02-05-2017 Chronic Asthma (20 sources) Mild intermittent asthma; Translations: [Mild intermittent asthma, uncomplicated] Chronic Biliary tract disease (7 sources) Cholestasis; Translations: [Obstruction of bile duct] Chronic Cancer of uterus (20 sources) Endometrial carcinoma; Translations: [Malignant neoplasm of endometrium] Onset: 11-17-2018 Chronic Cancer of uterus (1 source) History of malignant neoplasm of endometrium; Translations: [Personal history of malignant neoplasm of other parts of uterus] 08-06-2024 Episodic Cancer; other and unspecified primary (4 sources) [...] source) Anemia, unspecified; Translations: [Anemia, unspecified] Episodic Esophageal disorders (2 sources) Gastro-esophageal reflux disease with esophagitis; Translations: [Gastro-esophageal reflux disease with esophagitis, without bleeding] Chronic Esophageal disorders (2 sources) Esophageal disorders; Translations: [Gastro-esophageal reflux disease with esophagitis, without bleeding] Essential hypertension (20 sources) Hypertensive disorder; Translations: [Essential (primary) hypertension] Onset: 07-08-2019 07-08-2019 Chronic Fluid and electrolyte disorders (1 source) Dehydration; Translations: [Dehydration] Episodic Gastrointestinal hemorrhage (4 sources) Rectal hemorrhage; Translations: [Hemorrhage of anus and rectum] Episodic Genitourinary congenital anomalies (2 sources) Vaginal [...] arm] Episodic Other and unspecified benign neoplasm (2 sources) Melanocytic nevus of trunk; Translations: [Melanocytic nevi of trunk] 10-07-2024 Episodic Other and unspecified benign neoplasm (1 source) Bilateral lipoma of upper limbs; Translations: [Benign lipomatous neoplasm of skin and subcutaneous tissue of right arm] 06-29-2024 Episodic Other connective tissue disease (19 sources) History of total hip arthroplasty; Translations: [Presence of right artificial hip joint] Chronic Other connective tissue disease (1 source) Presence of right artificial hip joint Chronic Other connective tissue disease (4 sources) History of repair of hip joint; Translations: [Presence of right artificial hip joint] 10-29-2023 Chronic Comment on above: Problem List clean-u p per request of Phys. EHR Cmte Other connective tissue disease (4 sources) Plantar fascial fibromatosis; Translations: [Plantar fascial fibromatosis] Episodic Other diseases of veins and lymphatics (18 sources) Peripheral venous insufficiency; Translations: [Venous insufficiency (chronic) (peripheral)] Episodic Other diseases of veins and lymphatics (2 sources) Venous insufficiency (chronic) (peripheral) Episodic Other female genital disorders (1 source) Vaginal bleeding; Translations: [Abnormal uterine and vaginal bleeding, unspecified] 08-06-2024 Chronic Other gastrointestinal disorders (1 source) Irritable bowel [...] [Carpal tunnel syndrome] Onset: 06-17-2016 Chronic Other non-traumatic joint disorders (4 sources) Hip pain; Translations: [Pain in right hip] 10-29-2023 Episodic Comment on above: Problem List clean-u p per request of Phys. EHR Cmte Other screening for suspected conditions (not mental disorders or infectious disease) (13 sources) Encounter for screening mammogram for malignant neoplasm of breast; Translations: [Encounter for screening for malignant neoplasm of colon] Onset: 11-23-2014 Episodic Other skin disorders (1 source) Finding of lesion; Translations: [Localized swelling, mass and lump, unspecified] 08-29-2023 Episodic Other skin disorders (2 sources) Seborrheic keratosis; Translations: [Other seborrheic keratosis] 10-07-2024 Episodic Other upper respiratory infections (16 sources) [...] [Encounter for other specified prophylactic measures] Episodic Spondylosis; intervertebral disc disorders; other back problems (4 sources) Lumbar radiculopathy; Translations: [Radiculopathy, lumbar region] 11-01-2024 Episodic Thyroid disorders (17 sources) Autoimmune thyroiditis; Translations: [Autoimmune thyroiditis] Chronic Unclassified (1 source) SUBACUTE COUGH; Translations: [SUBACUTE COUGH] Onset: 03-27-2023 Unclassified (3 sources) CONTACT W/AND (SUSP) EXPOS COVID-19; Translations: [CONTACT W/AND (SUSP) EXPOS COVID-19] Onset: 01-21-2023 Unclassified (1 source) Nonspecific elevation of levels of transaminase or lactic acid dehydrogenase (LDH); Translations: [Nonspecific elevation of levels of transaminase or lactic acid dehydrogenase (LDH)] Onset: 09-12-2018 Unclassified (1 source) NO SHOW 08-21-2024 Past or Other Problems Problem Classification Problem Date Documented Date Episodic/Chronic Abdominal pain (20 sources) Abdominal pain; Translations: [Unspecified abdominal pain] Onset: 03-31-2008 03-31-2008 Episodic Anal and rectal conditions (20 sources) Radiation proctitis; Translations: [Radiation proctitis] Onset: 07-14-2023 Episodic Bacterial infection; unspecified site (4 sources) Bacterial infectious disease; Translations: [Bacterial infection, unspecified, in conditions classified elsewhere and of unspecified site] Onset: 12-05-2017 Episodic Deficiency and other anemia (8 sources) Anemia; Translations: [Anemia, unspecified] Onset: 09-02-2023 09-02-2023 Episodic Diabetes mellitus without complication (4 sources) Impaired fasting glucose; Translations: [Impaired fasting glycemia] Onset: 06-11-2019 Episodic Malaise and fatigue (4 sources) Malaise [...] Dyspnea, unspecified; Translations: [Dyspnea, unspecified type] Onset: 08-29-2023 Episodic Other nervous system disorders (1 source) Other acute postprocedural pain; Translations: [Postoperative pain] Onset: 09-02-2023 Episodic Other nutritional; endocrine; and metabolic disorders [...] Test Name Value Interpretation Reference Range Facility Laboratory - Chemistry and C hemistry - challengeon 11-01-2024 Free T4 [Mass/Vol] 0.68 ng/dL Low 0.76-1.46 [facility] TSH Qn 0.781 m[IU]/L 0.358-3.740 [facility] XR Hip - right 3 [facility] Result: AP and Lateral Right hip: AP and lateral of right hip showed acceptable position and alignment of right total hip arthroplasty. There was no evidence of loosening of the acetabular cup or femoral stem. Femoral head was well centered in the acetabular liner without evidence of asymmetric or accelerated wear. There was no gross evidence of fracture and/or dislocation. Impression: Unremarkable right total hip arthroplasty. Formerly [facility], 1928–1983 Radiology Study observation (narrative) [facility] Laboratory - Chemistry and C hemistry - challengeon 09-15-2024 Free T4 [Mass/Vol] 0.45 ng/dL Low 0.76-1.46 [facility] TSH Qn 0.131 m[IU]/L Low 0.358-3.740 [facility] No Panel Informationon 09-15 Total Triiodothyronine 78 ng/dL 71-180 [facility] Comment on above: Performed at: [address] [id number] Director: Alex Morse PhD, Phone: [phone] Vaishnavi 08-18-2024 DEBORA Telephone (BHAVNA) ISABEL STOVER ([id number]) 1960 F Date Time Provider Department 08/18/24 ERNESTO CHACKO During your visit today, we recorded the following information about you: Ernesto Chacko APRN.CNP 08/18/2024 10:40 AM Signed Message left for patient. Pap test inconclusive. She should call the office if she has persistent bleeding. MRI if symptoms persist. Ernesto Chacko APRN.CNP Allergies As of Date: 08/18/2024 (No Known Allergies) Date Reviewed: 08/05/2024 Reviewed by: Dee Dee Wills, RN - Fully Assessed Reason for Visit: Patient Update [1234] Prescriptions as of 08/18/2024 - ferrous sulfate (IRON ORAL) Take 28 mg by mouth once daily. - cholecalciferol, vitD3,/vit K2 (VITAMIN D3-VITAMIN K2 ORAL) Take 1 tablet by mouth once daily. Plus vitamin A and K1 - MAGNESIUM ORAL Take 240 mg by mouth two times a day. - methIMAzole (TAPAZOLE) 10 mg tablet Take 10 mg by mouth two times a day. - acetaminophen (TYLENOL) 500 mg tablet Take [...] mg by mouth daily at bedtime. - CTJC6-EQH-LJL-FISH OIL-L.CASEI ORAL Take by mouth once daily. - Lactobac no.41/Bifidobact no.7 (PROBIOTIC-10 ORAL) Take by mouth once daily. - MULTIVITAMIN TAB Take by mouth. - B COMPLEX VITAMINS CAP Take one(1) capsule daily. - CALCIUM CARBONATE-VIT D3-MINERALS 600 MG-400 UNIT TAB Take 1 tablet by mouth two times a day. Facility-Administered Medications as of 08/18/2024 - perflutren lipid microspheres 1.3 mL in NaCl (PF) 0.9% 10 mL injection (DEFINITY) - sodium chloride 0.9 % (flush) 10 mL (BD POSIFLUSH) Problem List As Of Date 08/18/2024 Noted Resolved ABDOMINAL PAIN UNSPEC SITE [R10.9] 03/31/2008 Hypertension [I10] History of thyroid disease [Z86.39] 07/28/2019 Endometrial cancer (HCC) [C54.1] 09/23/2019 Prolactinoma (HCC) [D35.2] Radiation proctitis [K62.7] 07/14/2023 Other specified anemias [D64.89] 09/02/2023 Encounter Status:Closed by ERNESTO CHACKO on 08/18/24 Normal [facility] HIGH RISK HUMAN PAPILLOMA RADHA (HPV), PCR FOR DETECTION AND GENOTYPINGOrdered By: Myron Sadler on 08-16-2024 HPV 16 Ag Ql (Unsp spec) Indeterminate Abnormal Not detected [facility] HPV 18 Ag Ql (Unsp spec) Indeterminate Abnormal Not detected [facility] HPV 31+33+35+39+45+51+52+5 6+58+59+66+68 DNA ANGELA+probe Ql (Cvx) Indeterminate Abnormal Not detected [facility] Comment on above: High Risk HPV Other Type includes HPV types 31, 33, 35, 39, 45, 51, 52, 56, 58, 59, 66 and 68. Interpretation and review of laboratory results Abnormal [facility] Indeterminate despit e repeat testing, likely due to suboptimal collection or amplification inhibition. Recommend submitting a new specimen for testing if clinically indicated. This test was developed and its performance characteristics determined by [facility]'s [facility] Pathology and Laboratory Medicine [place] ([facility]). It has not been cleared or approved by the FDA. -[facility] is regulated under CLIA as qualified to perform high-complexity testing. This test is used for clinical purposes. It should not be regarded as investigational or for research. [facility] No Panel InformationOrdered By: Brice Cervantes on 08-16-2024 [facility] Work Phone: PAP TESTOrdered By: Brice mckeon on 08-16-2024 Case Report Gynecologic Cytology Report Case: [id number] Authorizing Provider: Ernesto Chacko APRN.ICT SYSTEMS TEST ENGINEER Collected: 08/05/2024 01:17 PM Ordering Location: Gynecology Oncology Received: 08/05/2024 07:53 PM First Screen: Silvia Lr, CT, ASCP Pathologist: Brice Cervantes MD Specimen: Pap Test, ThinPrep, Vagina [facility] Work Phone: Clinical History Abnormal Bleeding (Describe) Hysterectomy, Total [facility] Work Phone: Gross Description q6ghlFVwPTZsnTQBMIX7 MD AgNV1vdEhdvZa6hZbcASKe xoH8xLLmLVqmp4rzLEL3j4 xtnwPCHmuzVESsBE7qHGas JODvBF7xEgTgTSHqWjPmJM BhcGVydzEyMjQwXHBhcGVy aIB5XLHtBJ3tlltdPEeyMF jkUNQfckR9MKNcaNArJ5Jd SKTsJQ8pprfjALZ7CELDMf eaFm5czLBsoWajKlGfFzZm TKCgOZMwCDAiv1cwijSLhv ozuIp8iW9QKVIfA9OxYF1N u9srWAGmmKViJXU1IZknz5 xoQFuwXSQ4VKIiJYVfSWJd OW3KCxSuQTwjGXS8ATt6Yn W2CJp9QTDIMAIeVYW1IPZ8 VWVgAJj7ARaqBQljbPRhLX DuIVHcAKYaQDzgddD1u6ug CYPmiNAdFYA3OWlze7wrFG lwFOB1FXOmLbCyZRBzZE1D WtDtQFskXVH0OBj1KgI5NM j6QYZLSlJeElJxRHq5AMk5 VWWmFWl5OAg6BAkJEmSwJl v9LAUuTRlvBHE8ZGJzURXi XHQgMiBcXHNzIDMgXFxmbC CnMC1paMxvVEEbEV2FDHKk LXxlHSMpUfYsGC3wAvJcdO 9wWCv4gsPxLQSsigMNXada DJOhEJ7CKBDmTOdpGNy6ag UzAGRsRfRcHWRcJ00uc0AF a0MaRH8SQNk9wtPenoNCOi xmczIwIEdsYWNpYWwgQWNl dGljIEFjaWQgYWRkZWQuXH BhciANClxzYTMwXGVwaWNY a9HaFFCAPyjhrFoeIiUouM EuAtX5CQPgoLKbAJJ0ZM8v hKwvRZPqK3HtK2OuszY0LO AevmHUGmhuSFMeIM6MQPGh MjIgDQp9 [facility] Work Phone: HPV Reflex Yes HPV [facility] Work Phone: Interpretation Unable to perform interpretation due to unsatisfactory specimen. [facility] Work Phone: Pap Disclaimer j0fycKQxATJnj0hyTINh bG FuZzEwMzNcZnRuYmpcdWMx OLgilfUiQVmpi5QwO0RdTy AwMFxhbnNpXGRlZmxhbmcx NUUiKXT8oiJiEIJrZLomKJ FrQOylDg2bsGUskWrcQtCn SVUrp2ldprQSymzroMr6a5 lxFMYfMhF5jILfRJxhH6tr hhBjyYUlTREcLEr6kS18KE SilY0kwANcJAifkhYoVlN1 RZriPAUkUzW8AERzjWPnNF RkG7rrOGXkIPsbDHRlXItj aPNoJKL2jJgdf3T0jPKcxX YxlKjdRbQmStMuXwITy1Gr OPj9rBjbD1RgSZGfLwW4yU QgUGFyYWdyYXBoIEZvbnQ7 eC58KGhuehG1dBDci9Mzu2 4ns630vM7fcITaAGY8WZTc LXEqhZXjCVThNNS5PBQboI KfM2gjQEXeOV1rfsyzKOek KLnlMSArbMI4ZMQxpKMkA1 FpXEBbQMkkLAEmgiu8PtXk Dr4aiHRhvCamPRgne0uce9 pmjQDsBeg2HLWoEeEsWmum PZrhn0Kvr8zoKURfnj4aJP P4gCEbgCpud0R9lKUsXZAq lABcupKbVIXcWfM3VEqeIG 3rrr03WURaIBQ3fu2nfSWg lRtqdkNcfHEzJXjlP7DlPW Mfy982WQQpH6GySRZlr9K3 skXjQlPiPONgxHU7flJ6VK WjHYw5mATubtC5cxCceNKe G5zzjD5sLSDzBG2mssdgm5 joYLwiKYtkZOXzwHD5wfK8 NOOthKRcH1FwdT5iVWTcIT tmNUCisqk0JrPcPl7hwSYq eTcyMFxzYmtwYWdlXHBnbm NvbnRccGduZGVjXHBsYWlu XHBsYWluXGYwXGZzMjRccW fuuRertA4zXlWiSxAtYpiq RQ4gJXSeW3rwfAUlSGQyMY UgI0oaFoHjpH2upCqlJNpc etS6ZCOhNHNFQCNaD40wVD DnvSVlCAGxY8UgIZ1ujmbn bGQvzMZzc9XdP2ZwjanvVY ktA8ZyO3QmNwDvCgDqf8Sz baMdSXOludKvyuLrdNm4jq WmG7O0kdC2aLSsLMWvxOBp G1QeKM4rhzdfeQCbgTFyIL ZfoNwcf4p7fZ7sKSNdBAJy ZWVkIGZvciByZXNjcmVlbm tzUpLyvEIuEVSqsS3qlxDt ZCBpbnRlcnZhbHMsIGFuZC XljBkyjSEhaRAgt5AjFAyq xEdibp8rtMgzeR9yCyRfXo CpBibaZB7nFQQiL4yltLId HRGyVVFuA5mvBvVsvI9blX yxUGjdyfYuWGNqbj39 [facility] Work Phone: Performing Lab u0xcqEXtEAScp2uiCRIl bG FuZzEwMzNcZnRuYmpcdWMx IHtccnRmMVxhbnNpXGRlZm bdwmygTGBbFWP5zeKbQXRl VWT2QYG0LfVvc6M4AWXpDw MySLNxKB6pgWneTLViGN0j LJLjW3olnK6xdwy6GxOvIH YlLoF9PSFljtN0Qty6BUQn YGcti8ruz0LqQOOgZIm9bC nzDvKnJAEwl7jukqJwCxVo OVJuLTOuVYAngTUqG690l3 jkl2ecqvJctOJ6QRTePMM4 HFfxyxLiyjR9PLvkcVJgNo M4IVecnsWsVWwtawZamiPm Jit8RXMdV731AXL5uWwvt3 lkMEB3CSPoFMXfOsAjKv2p cHXwA963YDCfSCLWVONunT c7JGVsnuLprfQxgPPKu470 A952k6seLAAsqkMilOaNus lzb4qkS195ZLSrqCDpipFc HwVmCSNoqEZpoAJ1RXFqMT 4odmolTPmeSWqeSENkrfL3 YMElhKYdG9IdPMDqNU7pnt kvLQH6TRggZGDzDCH2XeQz YRLsd5Dwlyd6YaSgjm5qis 67NJE5d4IwnWccFHN2PJE4 HoUnOz7lgCEwZYNyQF4uMb QswWRmAMBvez19eVbhLYnl gyCbuP6mDpKoCQGrbDBgCX VxOE4dvMPdUHHwjY2podoq XHBnYnJkcmhlYWRccGdicm CsCm9vxMqvGUW1GEpfY8qn uX3tIdJ3UVtfT3yjbY9nKF q6FLxluCK8SBXorU2yLA3q ddkxn8ncZKetXXbcVJMumj P4mkK2MTCvoJKwD4MhvD5v IYZzHV1jdbzdd6pgVLL2YM nlEOPlQUO6WmYiCMJjc9Gi wax0GyOre1JmrLYrRLtnI6 9cw333XTWbkvSpU0vvaQRc jaufyBEtqghzDHvnvrN1LL FsXHBsYWluXGYxXGZzMjJc bGFuZzEwMzNcaGljaFxmMV nrNsGmSIVuYLsaF9ibYwAh ZnMyMiBUZWNobmljYWwgY2 6geZ4hUI18LTPliEQzyKGd xP8pyD3dpVO9YFTtmbZjcp zfMvZkXSYgo7ZhZCOsISMw B0iegjIeFD3nZLEhqN1bYd wgOTUwMCBFdWNsaWQgQXZl QPQLmVR1JEgqatFvO5deJD QxOTUgICBDTElBIyAzNkQw DxQ6USf6PMTtaa47y1cxjN YxXHNzdGVjZjIyMDAwXGFu c4wtEERskNUoYuSnJhMuHb UkLsuccNEwELIaGkRkv2ac m276iYOpm9dfZVWbKtI6eS NsKXGzpMCnR001MLQeQDri v6lpd5WmIFEylFZll7H5OW QAwflhxUz0yQwkR03dx0P4 UttcY1mdXXLiUSZjI1IfCT 4oGRLaJsi2KMU4CWV5HUKj HFXeN3TxYJ3vRVWynYZgGB l5y5vnpEwjSIRrUFY5o5ct UYlfxwTuMO6fpq8ecVn9q7 xjczEgRGVmYXVsdCBQYXJh A3FecUhlIa0pxWy3oKljPu huFFU9Kdw2MF5kxq50liv0 xZdfTFGwpqnhEzE3EIajPK YteitxMYx5XInaYQXclCL4 LOKhzNEzD0MpXAgzRA1ynr n0CGT0OXuoWPIyZjP0PLWq sOBjDRXapXmkSDwvx606EL R7KrMkIZ9aY5Nwd6T9aM7b aXRcZGVmdGFiNzIwXGZvcm 7rhIGpACinf3IpQAB0mcY8 sUPmrLBqGNQuZI14Agvvi5 UvSlmvf8BvO89kvUK9JGzh w6pmSB4sXxJ9duXoLXgig1 ljcV0uEbM8XSnsHN8bFI1f GHNhaC3fpetxCORmCwXjyl joXADnwEeksuGxJt8gxCoy ZBX2OJfsW8kbqQ5aRoW0NO okI1eyyY2qROb0NNkjdJZ2 XTRelQ5oRW7vvcxwr5uhDN wbBZhuZUKiqfI0hcTyVORc sXKrX2PpjO0mNHWgMB9rtu riy3ngIKM8SHrtCDEdEXX8 NiCaQBLoh0Cqpuw3ClAld6 YlySDyJNvxE42tr535DJNs etTeY8cvbOLwwrrmrWKoeh weFAampkK8CAUjKNSbFUgh XGYxXGZzMjBcbGFuZzEwMz NcaGljaFxmMVxkYmNoXGYx RRzdA4uqBeFrApSbXWXGsC Sadj9gbMdeGHkldDWxsZEu qDM6yA9tVEZuenZdms3yPZ VreNPIbBA4HZzzloXlE7vx jfkeIUG8SKVjAEK5R7amCN BBdmUsIENsZXZlbGFuZCBP OQX3RBQ0PMLcONJSBWYwGU F4VXH3PGNyAQZbtJEqUIZt clxwYXJkXHBsYWluXGYwXG UdSbAwlRgxfW4eIbXkKaIz UWzvCG7bOKFuG8obcJJxMO RnXRLyN0fwDsQedZ9apZxf MVxjZjJcZnMyMFxsdHJjaC JIMWGzjgU0s8E4XRrpjUVl blxmMVxmczIwXGxhbmcxMD LlCEivU5ldZuRjNOEmuGyk ILieb6CaLYIqJKPgFtOaCO dtIXL1b2W2UUcfuPQjhyJK FsUFJL7rsWGxicjfIL0TZi xwbGFpblxmMVxmczIyXGxh xmgnCQDhZSwcF1yaFnQdMK EcuIehUCovk6LuNRKxSXRi MjJccGFyfX0= [facility] Work Phone: CNOVSPon 08-05-2024 CNOVSP Visit (SP) Office (BHAVNA) ISABEL STOVER ([id number]) 1960 F Date Time Provider Department 08/05/24 11:10 AM HENRY RAMOS During your visit today, we recorded the following information about you: Temperature Pulse Blood pressure Weight 99 degrees 81/minute 141/75 67.1 kg Height 1.676 m Henry Ramos MD 08/16/2024 12:41 PM Signed Gynecologic Oncology [facility] Follow up visit Date of service: 08/05/2024 PROBLEM/CC: Isabel Dailey Bairon presents for endometrial cancer surveillance visit with spotting. HPI: Ms. 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 Vaginal biopsy performed on 05/25/2021 showed tumor cells diffusely and strongly positive for immunohistochemical stain for PAX 8 supporting a diagnosis of endometrioid adenocarcinoma. Vaginal recurrence treated with vaginal cuff brachytherapy s/p 45 Gy in 25 fx EBRT followed by 30 Gy in 5 Fx completed 08/17/2021. Last Office Visit: 01/03/2023 ONCOLOGY HISTORY: PRIOR THERAPY AND DATE: 06/29/2019: [facility] - Endometrioid adenocarcinoma, FIGO 2; confirmed by [facility] Pathology 08/12/2019: Robotic total hysterectomy, bilateral salpingo-oophorectomy, cystotomy/cystotomy repair and cystoscopy PATHOLOGY: Moderately differentiated adenocarcinoma, endometrioid cell type with mucinous and squamous differentiation, FIGO grade 2. Neg LVSI, 13% [place] pT1a ([place]): Tumor limited to endometrium or invades less than 1/2 of the myometrium 05/25/2021 Vaginal biopsy Vagina, biopsy - Consistent with endometrioid adenocarcinoma (see comment). GZ/ka 05/28/2021 COMMENT The tumor cells are diffusely and strongly positive for immunohistochemical stain for [place] 8, supporting the above diagnosis. The patient [...] Never Smokeless tobacco: Never Vaping Use Vaping status: Never Used Substance Use Topics Alcohol use: Yes Comment: [...] No specimens collected. ALLERGIES No Known Allergies ferrous sulfate (IRON ORAL)Take 28 mg by mouth once daily.Disp: Rfl: cholecalciferol, vitD3,/vit K2 (VITAMIN D3-VITAMIN K2 ORAL)Take 1 tablet by mouth once daily. Plus vitamin A and K1Disp: Rfl: MAGNESIUM ORALTake 240 mg by mouth two times a day.Disp: Rfl: methIMAzole (TAPAZOLE) 10 mg tabletTake 10 mg by mouth two times a day.Disp: Rfl: ibuprofen (MOTRIN) 800 mg tabletTake by mouth q 8 HR.Disp: Rfl: dicyclomine (BENTYL) 10 mg capsuleTake 1 capsule by mouth before meals and at bedtime. As needed.Disp: Rfl: carvedilol (COREG) 25 mg tabletTake 1 tablet by mouth twice daily.Disp: Rfl: ascorbic acid, vitamin C, (VITAMIN C) 500 mg tabletTake 500 mg by mouth once daily.Disp: Rfl: TURMERIC ORALTake 1,000 mg by mouth once daily.Disp: Rfl: venlafaxine ER (EFFEXOR XR) 150 mg 24 hr capsuleTake 150 mg by mouth daily at bedtime. Disp: Rfl: NGEE5-WXH-IHL-FISH OIL-L.CASEI ORALTake by mouth once daily.Disp: Rfl: Lactobac no.41/Bifidobact no.7 (PROBIOTIC-10 ORAL)Take by mouth onc (more content not included)... Normal [facility] HIGH RISK HUMAN PAPILLOMA RADHA (HPV), PCR FOR DETECTION AND GENOTYPINGon 08-05-2024 HPV 16 Ag Ql (Unsp spec) Indeterminate Abnormal Not detected [facility] Comment on above: Order Comment: Speci men Type: FLUID SPECIMENOrdering Facility: [facility] Address: [address] [place] [address] [place] [id number] Performed By: #### H PVHRT, [id number] ####[facility] LABCLIA [id number] [place] [address] [place] HPV 18 Ag Ql (Unsp spec) Indeterminate Abnormal Not detected [facility] Comment on above: Order Comment: Speci men Type: FLUID SPECIMENOrdering Facility: [facility] Address: [address] [place] [address] Performed By: #### H PVHRT, [id number] ####[facility] LABCLIA [id number] [place] [address] [place] HPV 31+33+35+39+45+51+52+5 6+58+59+66+68 DNA ANGELA+probe Ql (Cvx) Indeterminate Abnormal Not detected [facility] Comment on above: Order Comment: Speci men Type: FLUID SPECIMENOrdering Facility: [facility] Address: [address] [place] [address] Result Comment: High Risk HPV Other Type includes HPV types 31, 33, 35, 39, 45, 51, 52, 56, 58, 59, 66 and 68. Performed By: #### H PVHRT, [id number] ####[facility] LABCLIA [id number] [place] [address] [place] PAP TESTon 08-05-2024 ADEQUACY Normal [facility] Comment on above: Order Comment: Speci men Type: FLUID SPECIMENOrdering Facility: [facility] Address: [address] [place] [address] Result Comment: Unsa tisfactory for evaluation. Limited cellularity. Performed By: #### H PVHRT, [id number] ####[facility] LABCLIA [id number] [place] [address] [place] CASE REPORT Normal [facility] Comment on above: Order Comment: Speci men Type: FLUID SPECIMENOrdering Facility: [facility] Address: [address] [place] [address] Result Comment: Gyne cologic Cytology Report Case: [id number] Authorizing Provider: Ernesto Chacko APRN.ICT SYSTEMS TEST ENGINEER Collected: 08/05/2024 01:17 PM Ordering Location: Gynecology Oncology Received: 08/05/2024 07:53 PM First Screen: Silvia Lr, CT, ASCP Pathologist: Brice Cervantes MD Specimen: Pap Test, ThinPrep, Vagina Performed By: #### H PVHRT, [id number] ####[facility] LABCLIA [id number] [place] [address] [place] CLINICAL HISTORY, CYTOLOGY, CIRCUS TRAINER Normal [facility] Comment on above: Order Comment: Speci men Type: FLUID SPECIMENOrdering Facility: [facility] Address: [address] [place] [address] Result Comment: Abno rmal Bleeding (Describe) Hysterectomy, Total Performed By: #### H PVHRT, [id number] ####[facility] LABCLIA [id number] [place] [address] [place] FINAL PERFORMING LAB Normal [facility] Comment on above: Order Comment: Speci men Type: FLUID SPECIMENOrdering Facility: [facility] Address: [address] [place] [address] Result Comment: Tech nical component, stone carver screening performed at [facility], [address] [place] [address] CLIA# [id number] Diagnostic interpretation performed at [facility], [address] [place] [address] CLIA# [id number] Dip Painter: Anant Dumont M.D. Performed By: #### H PVHRT, [id number] ####[facility] LABCLIA [id number] [place] [address] [place] GROSS DESCRIPTION A. Vagina Normal [facility] Comment on above: Order Comment: Speci men Type: FLUID SPECIMENOrdering Facility: [facility] Address: [address] [place] [address] Result Comment: Glac ial Acetic Acid added. Performed By: #### H PVHRT, [id number] ####[facility] LABCLIA [id number] [place] [address] [place] HPV REFLEX Yes HPV Normal [facility] Comment on above: Order Comment: Speci men Type: FLUID SPECIMENOrdering Facility: [facility] Address: [address] [place] [address] Performed By: #### H PVHRT, [id number] ####[facility] LABCLIA [id number] [place] [address] [place] INTERPRETATION, CYTOLOGY, CIRCUS TRAINER Normal [facility] Comment on above: Order Comment: Speci men Type: FLUID SPECIMENOrdering Facility: [facility] Address: [address] [place] [address] Result Comment: Unab le to perform interpretation due to unsatisfactory specimen. Performed By: #### H PVHRT, [id number] ####[facility] LABCLIA [id number] [place] [address] [place] PAP DISCLAIMER COMMENT The Pap Smear is a screening test for cervical cancer. False negative results occur with all screening tests, emphasizing the need for rescreening at recommended intervals, and clinical correlation. Normal [facility] Comment on above: Order Comment: Speci men Type: FLUID SPECIMENOrdering Facility: [facility] Address: [address] [place] [address] Performed By: #### H PVHRT, [id number] ####[facility] LABCLIA [id number] [place] [address] [place] Laboratory - Chemistry and C hemistry - challengeon 06-25-2024 Free T4 [Mass/Vol] 1.58 ng/dL High 0.76-1.46 [facility] No Panel Informationon 06-25 Thyroid Stimulating Hormone 3rd Gen <0.007 u[iU]/mL Low 0.358-3.740 [facility] Total Triiodothyronine 199 ng/dL Abnormal 71-180 [facility] Comment on above: Performed at: [facility] [address] [id number] Director: Alex Morse PhD, Phone: [phone] Laboratory - Chemistry and C hemistry - challengeon 05-19-2024 Free T4 [Mass/Vol] 2.49 ng/dL High 0.76-1.46 [facility] No Panel Informationon 05-19 Thyroid Stimulating Hormone 3rd Gen <0.007 u[iU]/mL Low 0.358-3.740 [facility] Total Triiodothyronine 271 ng/dL Abnormal 71-180 [facility] Comment on above: Performed at: [facility] [address] [id number] Director: Alex Morse PhD, Phone: [phone] Thyroid stimulating immunogl obulin (TSI) measurementon 05-19-2024 Thyroid stimulating immunoglobulins actual/normal (S) [Relative mass conc] 3.57 IU/L Abnormal 0.00-0.55 [facility] Comment on above: Performed at: [facility] [address] [id number] Director: Betty Montiel MD, Phone: [phone] No Panel InformationOrdered By: Dee Dee Espana on 05-04-2024 Quick Strep (POC) [facility] Basophils Auto (Bld) [#/Vol] on 05-03-2024 Basophils (Bld) [#/Vol] 0.0 10 3/uL 0.0-0.1 [facility] Basophils/100 WBC Auto (Bld) on 05-03-2024 Basophils/100 WBC (Bld) 0.2 % 0.2-2.0 [facility] Eosinophils/100 WBC Auto (Bl d)on 05-03-2024 Eosinophils/100 WBC (Bld) 5.4 % 0.9-7.0 [facility] Erythrocyte distribution wid th Auto (RBC) [Ratio]on 05-03-2024 Erythrocyte distribution width (RBC) [Ratio] 12.7 % 11.0-15.0 [facility] Hematocrit Auto (Bld) [Volum e fraction]on 05-03-2024 Hematocrit (Bld) [Volume fraction] 40.6 % 36.0-48.0 [facility] Hemoglobin [Mass/volume] in Bloodon 05-03-2024 Hemoglobin (Bld) [Mass/Vol] 13.1 g/dL 12.0-16.0 [facility] Iron binding capacity [Mass/ volume] in Serum or Plasmaon 05-03-2024 Iron binding capacity [Mass/Vol] 279.0 ug/dL 250.0-450.0 [facility] Iron saturation [Mass Fracti on] in Serum or Plasmaon 05-03-2024 Iron saturation [Mass fraction] 14.0 % [facility] - Chemistry and C hemistry - challengeon 05-03-2024 Ferritin [Mass/Vol] 128.0 ng/mL 8.0-252.0 [facility] Free T4 [Mass/Vol] 2.46 ng/dL High 0.76-1.46 [facility] Iron [Mass/Vol] 39.0 ug/dL Low 50.0-170.0 [facility] - Hematology and Cell countson 05-03-2024 Immature granulocytes/100 WBC (Bld) 0.2 % 0.0-0.5 [facility] Leukocytes [#/volume] correc katherine for nucleated erythrocytes in Blood by Automated counon 05-03-2024 WBC corrected for nucl RBC Auto (Bld) [#/Vol] 4.3 10 3/uL 4.0-11.0 [facility] Lymphocytes Auto (Bld) [#/Vo l]on 05-03-2024 Lymphocytes (Bld) [#/Vol] 1.3 10 3/uL 1.2-3.8 [facility] Lymphocytes/100 WBC Auto (Bl d)on 05-03-2024 Lymphocytes/100 WBC (Bld) 29.7 % 20.5-60.0 [facility] MCH Auto (RBC) [Entitic mass ]on 05-03-2024 MCH (RBC) [Entitic mass] 29.2 pg 26.7-34.0 [facility] MCHC Auto (RBC) [Mass/Vol]on 05-03-2024 MCHC (RBC) [Mass/Vol] 32.3 g/dL 29.9-35.2 [facility] MCV Auto (RBC) [Entitic vol] on 05-03-2024 MCV (RBC) [Entitic vol] 90.4 fL 81.0-99.0 [facility] Monocytes Auto (Bld) [#/Vol] on 05-03-2024 Monocytes (Bld) [#/Vol] 0.5 10 3/uL 0.3-0.8 [facility] Monocytes/100 WBC Auto (Bld) on 05-03-2024 Monocytes/100 WBC (Bld) 11.0 % 1.7-12.0 [facility] Neutrophils Auto (Bld) [#/Vo l]on 05-03-2024 Neutrophils (Bld) [#/Vol] 2.3 10 3/uL 1.4-6.5 [facility] Neutrophils/100 WBC Auto (Bl d)on 05-03-2024 Neutrophils/100 WBC (Bld) 53.5 % 43.0-75.0 [facility] No Panel Informationon 05-03 Eosinophils # (Auto) 0.2 10 3/uL 0.0-0.7 [facility] Immature Granulocyte # (Auto) 0.01 10 3/uL 0.00-0.03 [facility] Thyroid Stimulating Hormone 3rd Gen <0.007 u[iU]/mL Low 0.358-3.740 [facility] Platelet mean volume Auto (B ld) [Entitic vol]on 05-03-2024 Platelet mean volume (Bld) [Entitic vol] 9.6 fL 9.5-13.5 [facility] Platelets Auto (Bld) [#/Vol] on 05-03-2024 Platelets (Bld) [#/Vol] 192 10 3/uL 150-450 [facility] RBC Auto (Bld) [#/Vol]on RBC (Bld) [#/Vol] 4.49 10 6/uL 4.20-5.40 [facility] CNOVon 09-29-2023 CNOV Office Visit (CORSMN ) ISABEL STOVER ([id number]) 1960 F Date Time Provider Department 09/29/23 10:20 AM [place] During your visit today, we recorded the following information about you: Weight Height 62.1 kg 1.676 m [place] DO 10/07/2023 2:04 PM Signed COLORECTAL SURGERY Follow-up September 23, 2023 Chief complaint: postop follow up HPI: Isabel Stover is a 63 year old female with [...] Medical Decision Making: Assessment AND Diagnosis: Isabel Stover is a 63 year old female with history of endometrial cancer s/p radiation c/b radiation proctitis. Feeling much better after EUA with topical formalin in OR on 09/02/23. Data Reviewed: Tests AND Documents Reviewed/ordered: Review of Pathology I have independently interpreted: none I have discussed Isabel Stover's treatment plan and/or results with patient. Treatment [...] mg by mouth daily at bedtime. - SQEB1-UPD-BUQ-FISH OIL-L.CASEI ORAL Take by mouth once daily. [...] [D64.89] 09/02 (more content not included)... Normal [facility] ANES POSTPROC EVALon 023 ANES POSTPROC EVAL HNO ID: [id number] Author: Kobe Garcia MD Service: ? Author Type: Anesthesiologist Type: Anesthesia Postprocedure Evaluation Filed: 09/02/2023 10:38 AM Note Text: POST ANESTHESIA EVALUATION NOTE : 1960 Procedure Summary Date: 09/02/23 Room / Location: [place] [address] [facility] Anesthesia Start: 745 Anesthesia Stop: 925 Procedures: EXAM UNDER ANESTHESIA RECTAL (Anus) SIGMOIDOSCOPY FLEXIBLE (Colon Sigmoid) ANOSCOPY W/ CONTROL OF BLEEDING- Formalin treatment (Anus) Diagnosis: Radiation proctitis (Radiation proctitis [K62.7]) Surgeons: [place] DO Responsible Provider: Kobe Garcia MD Anesthesia Type: general ASA Status: 3 Anesthesia Type: general Airway Type: LMA Last Vitals Vitals Value Taken Time BP 164/78 10/17/23 1030 Temp 37.6 ?C (99.7 ?F) 09/02/23 [...] SIGNATURE: Kobe Garcia MD PATIENT NAME: Isabel Stover DATE: September 02, 2023 TIME: 10:37 AM CSN: [id number] Normal [facility] ANES PRE-OPon 09-02-2023 ANES PRE-OP HNO ID: [id number] Author: Kobe Garcia MD Service: ? Author Type: Anesthesiologist Type: Anesthesia Preprocedure Evaluation Filed: 09/02/2023 8:30 AM Note Text: ANESTHESIOLOGY DAY OF SURGERY NOTE : 1960 Procedure Information Date/Time: 09/02/23729 Procedures: EXAM UNDER ANESTHESIA RECTAL (Anus) SIGMOIDOSCOPY FLEXIBLE (Colon Sigmoid) ANOSCOPY W/ CONTROL OF BLEEDING- Formalin treatment (Anus) Location: [place] [address] / [facility] [place] Surgeons: [place] S[place] DO Estimated body mass [...] and consent discussed: yes. Patient / Responsible [employer] agrees to proceed: yes Patient / [...] 1,000 mg by mouth once daily. - ULFI4-GFH-NNH-FISH OIL-L.CASEI ORAL Take by mouth once daily. [...] on 06/27/2023 (more content not included)... Normal [facility] ANES PREOPon 09-02-2023 ANES PREOP HNO ID: [id number] Author: Kobe Garcia MD Service: Anesthesiology Author Type: Anesthesiologist Type: Anesthesia PreOp Filed: 09/02/2023 7:05 AM Note Text: Healthy except for FAP. Appropriately NPO, denies reflux, no history of anesthesia problems. Reviewed in fathers presence. MP1, no airway concerns, ASA2, Plan for GA with LMA. Has braces, tight , no loose teeth. Normal [facility] BRIEF OP NOTon 09-02-2023 BRIEF OP NOT HNO ID: [id number] Author: Milagro Sanchez MD Service: Colorectal Author Type: Physician Type: Brief Op Note Filed: 09/02/2023 8:57 AM Note Text: BRIEF OPERATIVE NOTE - COLORECTAL SURGERY Log ID: [id number] Surgery/Procedure Date: 09/02/2023 Incision/Procedure Start Time: 8:01 AM Incision Close/Procedure End Time: 8:51 AM Surgeon(s) and Women'S Studies Professor(s): Surgeon(s) and Role: * [place] DO [...] SIGNATURE: Milagro Sanchez MD PATIENT NAME: Isabel Stover DATE: September 02, 2023 TIME: 8:56 AM Normal [facility] CNDSon 09-02-2023 CNDS HNO ID: [id number] Author: Ricardo White PA-C Service: Colorectal Author Type: Physician Women'S Studies Professor Type: Discharge Summary Filed: 09/02/2023 2:06 PM Note Text: Attestation signed by [place] DO at 09/02/2023 4:24 PM [place] DO, DAVID, FASCRS Colorectal Surgery DISCHARGE SUMMARY PATIENT NAME: Isabel Stover ADMISSION DATE: 09/02/2023 DISCHARGE DATE: 09/02/2023 Attending [...] hospital problems. * Reason for Hospitalization: Isabel Stover is a 63-year-old female with a PMHx [...] -2 units pRBCs transfused Hospital Course: Isabel Stover came to the hospital to have surgery [...] see a follow up appointment in your [facility] in 4-5 business [address] Dr[address] Saba's office at [phone] to make an appointment. Transitions of Care [...] capsule Commonly (more content not included)... Normal [facility] Hematocrit Auto (Bld) [Volum e fraction]on 09-02-2023 Hematocrit (Bld) [Volume fraction] 27.4 % Low 36.0-46.0 [facility] Comment on above: Order Comment: Adonis mayo Type: BLOOD SPECIMENOrdering Facility: [facility] Address: [address] [place] [address] Performed By: #### 4 544-3, 718-7 ####[facility] [id number] [address] [place] Hgb Bld-mCncon 09-02-2023 Hemoglobin (Bld) [Mass/Vol] 7.5 g/dL Low 11.5-15.5 [facility] Comment on above: Order Comment: Adonis mayo Type: BLOOD SPECIMENOrdering Facility: [facility] Address: [address] [place] [address] Performed By: #### 4 544-3, 718-7 ####[facility] [id number] [place] [address] [place] OPERATIVE NOon 09-02-2023 OPERATIVE NO HNO ID: [id number] Author: [place] DO Service: Colorectal Author Type: Physician Type: Operative Report Filed: 09/10/2023 7:14 AM Note Text: OPERATIVE REPORT PATIENT NAME: Isabel Stover LOG ID: [id number] SURGERY DATE: 09/02/2023 INCISION/PROCEDURE START TIME: 8:01 AM INCISION CLOSE/PROCEDURE END TIME: 8:51 AM PREOPERATIVE DIAGNOSIS: Radiation proctitis, anemia, history of endometrial adenocarcinoma POSTOPERATIVE DIAGNOSIS: Radiation proctitis, anemia, history of endometrial adenocarcinoma OPERATION PERFORMED: Flexible sigmoidoscopy, exam under anesthesia, topical application of formalin to the rectum for treatment of radiation proctitis SURGEON: [place] DO HEALTH DIRECTOR: Milagro Sanchez MD. no qualified residents or [...] Saba, DO, FACS, FASCRS Colorectal Surgery Normal [facility] TYPE + SCREENon 09-02-2023 ABO O Normal [facility] Comment on above: Order Comment: Speci men Type: BLOOD SPECIMENOrdering Facility: [facility] Address: [address] [place] [address] Performed By: #### T SCR ####[facility] B[facility] BANKCLIA [id number] [place] [address] [place] HISTORICAL AB SCR STATUS Negative Normal [facility] Comment on above: Order Comment: Speci men Type: BLOOD SPECIMENOrdering Facility: [facility] Address: [address] [place] [address] Performed By: #### T SCR ####[facility] BLO[facility] BANKCLIA [id number] [place] [address] [place] Rh Nom (Bld) Positive Normal [facility] Comment on above: Order Comment: Speci men Type: BLOOD SPECIMENOrdering Facility: [facility] Address: [address] [place] [address] Performed By: #### T SCR ####[facility] BLOOD BANKCLIA [id number] [place] [address] [place] TYPE AND SCREEN EXPIRATION 09/05/2023 23:59 Normal [facility] Comment on above: Order Comment: Speci men Type: BLOOD SPECIMENOrdering Facility: [facility] Address: [address] [place] [address] Performed By: #### T SCR ####[facility] BLOOD BANKCLIA [id number] [place] [address] [place] CBC W Auto Differential pane l (Bld)on 08-29-2023 Basophils (Bld) [#/Vol] 10*3/uL Normal <0.11 [facility] Comment on above: Order Comment: Speci men Type: BLOOD SPECIMENOrdering Facility: [facility] Address: [address] [place] [address] Performed By: #### 5 7021-8 ####[facility] LABCLIA [id number] [place] [address] [place] Basophils/100 WBC (Bld) 0.7 % Normal [facility] Comment on above: Order Comment: Speci men Type: BLOOD SPECIMENOrdering Facility: [facility] Address: [address] [place] [address] Performed By: #### 5 7021-8 ####[facility] LABCLIA [id number] [place] [address] [place] Differential cell count method Nom (Bld) Auto Normal [facility] Comment on above: Order Comment: Speci men Type: BLOOD SPECIMENOrdering Facility: [facility] Address: [address] [place] [address] Performed By: #### 5 7021-8 ####[facility] LABCLIA [id number] [place] [address] [place] Eosinophils (Bld) [#/Vol] 0.18 10*3/uL Normal <0.46 [facility] Comment on above: Order Comment: Speci men Type: BLOOD SPECIMENOrdering Facility: [facility] Address: [address] [place] [address] Performed By: #### 5 7021-8 ####[facility] LABCLIA [id number] [place] [address] [place] Eosinophils/100 WBC (Bld) 5.9 % Normal [facility] Comment on above: Order Comment: Speci men Type: BLOOD SPECIMENOrdering Facility: [facility] Address: [address] [place] [address] Performed By: #### 5 7021-8 ####[facility] LABCLIA [id number] [place] [address] [place] Erythrocyte distribution width (RBC) [Ratio] 22.0 % High 11.5-15.0 [facility] Comment on above: Order Comment: Speci men Type: BLOOD SPECIMENOrdering Facility: [facility] Address: [address] [place] [address] Performed By: #### 5 7021-8 ####[facility] LABIA [id number] [place] [address] [place] Hematocrit (Bld) [Volume fraction] 26.0 % Low 36.0-46.0 [facility] Comment on above: Order Comment: Speci men Type: BLOOD SPECIMENOrdering Facility: [facility] Address: [address] [place] [address] Performed By: #### 5 7021-8 ####[facility] LABCLIA [id number] [place] [address] [place] Hemoglobin (Bld) [Mass/Vol] 7.0 g/dL Low 11.5-15.5 [facility] Comment on above: Order Comment: Speci men Type: BLOOD SPECIMENOrdering Facility: [facility] Address: [address] [place] [address] Performed By: #### 5 7021-8 ####[facility] LABCLIA [id number] [place] [address] [place] Immature granulocytes (Bld) [#/Vol] 10*3/uL Normal <0.10 [facility] Comment on above: Order Comment: Speci men Type: BLOOD SPECIMENOrdering Facility: [facility] Address: [address] [place] [address] Performed By: #### 5 7021-8 ####[facility] LABCLIA [id number] [place] [address] [place] Immature granulocytes/100 WBC (Bld) 0.0 % Normal [facility] Comment on above: Order Comment: Speci men Type: BLOOD SPECIMENOrdering Facility: [facility] Address: [address] [place] [address] Performed By: #### 5 7021-8 ####[facility] LABCLIA [id number] [place] [address] [place] Lymphocytes (Bld) [#/Vol] 1.20 10*3/uL Normal 1.00-4.00 [facility] Comment on above: Order Comment: Speci men Type: BLOOD SPECIMENOrdering Facility: [facility] Address: [address] [place] [address] Performed By: #### 5 7021-8 ####[facility] LABCLIA [id number] [place] [address] [place] Lymphocytes/100 WBC (Bld) 39.1 % Normal [facility] Comment on above: Order Comment: Speci men Type: BLOOD SPECIMENOrdering Facility: [facility] Address: [address] [place] [address] Performed By: #### 5 7021-8 ####[facility] LABCLIA [id number] [place] [address] [place] MCH (RBC) [Entitic mass] 17.9 pg Low 26.0-34.0 [facility] Comment on above: Order Comment: Speci men Type: BLOOD SPECIMENOrdering Facility: [facility] Address: [address] [place] [address] Performed By: #### 5 7021-8 ####[facility] LABCLIA [id number] [place] [address] [place] MCHC (RBC) [Mass/Vol] 26.9 g/dL Low 30.5-36.0 [facility] Comment on above: Order Comment: Speci men Type: BLOOD SPECIMENOrdering Facility: [facility] Address: [address] [place] [address] Performed By: #### 5 7021-8 ####[facility] LABIA [id number] [place] [address] [place] MCV (RBC) [Entitic vol] 66.3 fL Low 80.0-100.0 [facility] Comment on above: Order Comment: Speci men Type: BLOOD SPECIMENOrdering Facility: [facility] Address: [address] [place] [address] Performed By: #### 5 7021-8 ####[facility] LABIA [id number] [place] [address] [place] Monocytes (Bld) [#/Vol] 0.40 10*3/uL Normal <0.87 [facility] Comment on above: Order Comment: Speci men Type: BLOOD SPECIMENOrdering Facility: [facility] Address: [address] [place] [address] Performed By: #### 5 7021-8 ####[facility] LABCLIA [id number] [place] [address] [place] Monocytes/100 WBC (Bld) 13.0 % Normal [facility] Comment on above: Order Comment: Speci men Type: BLOOD SPECIMENOrdering Facility: [facility] Address: [address] [place] [address] Performed By: #### 5 7021-8 ####[facility] LABIA [id number] [place] [address] [place] Neutrophils (Bld) [#/Vol] 1.27 10*3/uL Low 1.45-7.50 [facility] Comment on above: Order Comment: Speci men Type: BLOOD SPECIMENOrdering Facility: [facility] Address: [address] [place] [address] Performed By: #### 5 7021-8 ####[facility] LABCLIA [id number] [place] [address] [place] Neutrophils/100 WBC (Bld) 41.3 % Normal [facility] Comment on above: Order Comment: Speci men Type: BLOOD SPECIMENOrdering Facility: [facility] Address: [address] [place] [address] Performed By: #### 5 7021-8 ####[facility] LABCLIA [id number] [place] [address] [place] Nucleated RBC (Bld) [#/Vol] 10*3/uL Normal <0.01 [facility] Comment on above: Order Comment: Speci men Type: BLOOD SPECIMENOrdering Facility: [facility] Address: [address] [place] [address] Performed By: #### 5 7021-8 ####[facility] LABCLIA [id number] [place] [address] [place] Nucleated RBC/100 WBC (Bld) [Ratio] 0.0 /100 WBC Normal [facility] Comment on above: Order Comment: Speci men Type: BLOOD SPECIMENOrdering Facility: [facility] Address: [address] [place] [address] Performed By: #### 5 7021-8 ####[facility] LABCLIA [id number] [place] [address] [place] Platelet mean volume (Bld) [Entitic vol] 9.6 fL Normal 9.0-12.7 [facility] Comment on above: Order Comment: Speci men Type: BLOOD SPECIMENOrdering Facility: [facility] Address: [address] [place] [address] Performed By: #### 5 7021-8 ####[facility] LABCLIA [id number] [place] [address] [place] Platelets (Bld) [#/Vol] 266 10*3/uL Normal 150-400 [facility] Comment on above: Order Comment: Speci men Type: BLOOD SPECIMENOrdering Facility: [facility] Address: [address] [place] [address] Performed By: #### 5 7021-8 ####[facility] LABIA [id number] [place] [address] [place] RBC (Bld) [#/Vol] 3.92 10*6/uL Normal 3.90-5.20 [facility] Comment on above: Order Comment: Speci men Type: BLOOD SPECIMENOrdering Facility: [facility] Address: [address] [place] [address] Performed By: #### 5 7021-8 ####[facility] LABIA [id number] [place] [address] [place] WBC (Bld) [#/Vol] 3.07 10*3/uL Low 3.70-11.00 [facility] Comment on above: Order Comment: Speci men Type: BLOOD SPECIMENOrdering Facility: [facility] Address: [place] [address] Performed By: #### 5 7021-8 ####[facility] LABIA [id number] [place] [address] [place] CNOVon 08-29-2023 CNOV Office Visit (HOMERO ) ISABEL STOVER ([id number]) 1960 F Date Time Provider Department 08/29/23 [...] or any other indicated procedure HPI: Isabel Stover is a 63 year old female who [...] Medical Decision Making: Assessment AND Diagnosis: Isabel Stover is a 63 year old female here [...] team about CBC once drawn. Elder Galan APRN.ICT SYSTEMS TEST ENGINEER Pelvic Floor Colorectal Surgery Risk of morbidity, mortality and/or complications of treatment plan: high Referring Provider: SOU[place] SABA [[id number]] Allergies As of Allen (more content not included)... Normal [facility] CNOV Office Visit (PMNA11 ) ISABEL STOVER ([id number]) 1960 F Date Time Provider Department 08/29/23 10:00 AM HEIDI MENARD PMNA11 During your visit today, we recorded the following information about you: Temperature Pulse Respiration Blood pressure 98 degrees 82/minute 16/minute 157/77 Weight 66.7 kg Heidi Menard MD 08/29/2023 1:08 PM Signed Ms. Stover is a 63 year old female who presents to the [facility] [place]. 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 Normal [facility] Comprehensive metabolic 2000 panelon 08-29-2023 Albumin [Mass/Vol] 3.9 g/dL Normal 3.9-4.9 [facility] Comment on above: Order Comment: Speci men Type: BLOOD SPECIMENOrdering Facility: [facility] Address: [address] [place] [address] Performed By: #### 2 4323-8 ####[facility] LABCLIA [id number] [place] [address] [place] ALP [Catalytic activity/Vol] 164 U/L High 34-123 [facility] Comment on above: Order Comment: Speci men Type: BLOOD SPECIMENOrdering Facility: [facility] Address: [address] [place] [address] Performed By: #### 2 4323-8 ####[facility] LABCLIA [id number] [place] [address] [place] ALT [Catalytic activity/Vol] 45 U/L High 7-38 [facility] Comment on above: Order Comment: Speci men Type: BLOOD SPECIMENOrdering Facility: [facility] Address: [address] [place] [address] Performed By: #### 2 4323-8 ####[facility] LABCLIA [id number] [address] [address] [place] Anion gap [Moles/Vol] 10 mmol/L Normal 9-18 [facility] Comment on above: Order Comment: Speci men Type: BLOOD SPECIMENOrdering Facility: [facility] Address: [address] [place] [address] Performed By: #### 2 4323-8 ####[facility] LABCLIA [id number] [place] [address] [place] AST [Catalytic activity/Vol] 48 U/L High 13-35 [facility] Comment on above: Order Comment: Speci men Type: BLOOD SPECIMENOrdering Facility: [facility] Address: [address] [place] [address] Performed By: #### 2 4323-8 ####[facility] LABCLIA [id number] [place] [address] [place] Bilirubin [Mass/Vol] 0.3 mg/dL Normal 0.2-1.3 [facility] Comment on above: Order Comment: Speci men Type: BLOOD SPECIMENOrdering Facility: [facility] Address: [address] [place] [address] Performed By: #### 2 4323-8 ####[facility] LABCLIA [id number] [place] [address] [place] Calcium [Mass/Vol] 9.5 mg/dL Normal 8.5-10.2 [facility] Comment on above: Order Comment: Speci men Type: BLOOD SPECIMENOrdering Facility: [facility] Address: [address] [place] [address] Performed By: #### 2 4323-8 ####[facility] LABCLIA [id number] [place] [address] [place] Chloride [Moles/Vol] 107 mmol/L High 97-105 [facility] Comment on above: Order Comment: Speci men Type: BLOOD SPECIMENOrdering Facility: [facility] Address: [address] [place] [address] Performed By: #### 2 4323-8 ####[facility] LABCLIA [id number] [place] [address] [place] CO2 [Moles/Vol] 24 mmol/L Normal 22-30 [facility] Comment on above: Order Comment: Speci men Type: BLOOD SPECIMENOrdering Facility: [facility] Address: [address] [place] [address] Performed By: #### 2 4323-8 ####[facility] LABCLIA [id number] [place] [address] [place] Creatinine [Mass/Vol] 0.61 mg/dL Normal 0.58-0.96 [facility] Comment on above: Order Comment: Speci men Type: BLOOD SPECIMENOrdering Facility: [facility] Address: [address] [place] [address] Performed By: #### 2 4323-8 ####[facility] LABIA [id number] [place] [address] [place] Creatinine and Glomerular filtration rate.predicted panel (S/P/Bld) 101 mL/min/1.73m??? Normal >=60 [facility] Comment on above: Order Comment: Speci men Type: BLOOD SPECIMENOrdering Facility: [facility] Address: [address] [place] [address] Result Comment: Kae mated Glomerular Filtration Rate [...] actual GFR. Performed By: #### 2 4323-8 ####[facility] LABIA [id number] [place] [address] [place] Glucose [Mass/Vol] 94 mg/dL Normal 74-99 [facility] Comment on above: Order Comment: Adonis men Type: BLOOD SPECIMENOrdering Facility: [facility] Address: [address] [place] [address] Result Comment: The [place] Diabetes Association (ADA) provides guidance for cutoff [...] Standards of Medical Care in Diabetes 2016, [place] Diabetes Association. Diabetes Care. 2016.39(Suppl 1). Performed By: #### 2 4323-8 ####[facility] LABIA [id number] [place] [address] [place] Potassium [Moles/Vol] 4.5 mmol/L Normal 3.7-5.1 [facility] Comment on above: Order Comment: Adonis mayo Type: BLOOD SPECIMENOrdering Facility: [facility] Address: [address] [place] [address] Performed By: #### 2 4323-8 ####[facility] LABIA [id number] [place] [address] [place] Protein [Mass/Vol] 6.4 g/dL Normal 6.3-8.0 [facility] Comment on above: Order Comment: Adonis mayo Type: BLOOD SPECIMENOrdering Facility: [facility] Address: [address] [place], [place] [address] [id number] Performed By: #### 2 4323-8 ####[facility] LABCLIA [id number] [place] [id number] [place] Sodium [Moles/Vol] 141 mmol/L Normal 136-144 [facility] Comment on above: Order Comment: Speci men Type: BLOOD SPECIMENOrdering Facility: [facility] Address: [address] [place] [address] Performed By: #### 2 4323-8 ####[facility] LABCLIA [id number] [place] [address] [place] Urea nitrogen [Mass/Vol] 13 mg/dL Normal 7-21 [facility] Comment on above: Order Comment: Speci men Type: BLOOD SPECIMENOrdering Facility: [facility] Address: [address] [place] [address] Performed By: #### 2 4323-8 ####[facility] LABIA [id number] [place] [address] [place] ECG COMPLETEon 08-29-2023 ECG COMPLETE Ventricular Rate : 7 6 BPM Atrial Rate : 76 BPM P-R Interval : 194 ms QRS Duration : 82 ms Q-T Interval : 392 ms QTC Calculation(Bazett) : 441 ms Calculated P Ransom : 22 degrees Calculated R Ransom : 58 degrees Calculated T Ransom : 43 degrees NORMAL SINUS RHYTHM POSSIBLE LEFT ATRIAL ENLARGEMENT LEFT VENTRICULAR HYPERTROPHY ABNORMAL ECG Confirmed by MING MITCHELL MD ([id number]) on 09/02/2023 9:46:08 PM NAME : ISABEL STOVER PID : [id number] : 1960 Gender : Female Race : ORD : [id number] Procedure Date : Aug 29 2023 13:01:41 Edit Date : Sep 02 2023 21:46:10 Diagnosis: NORMAL SINUS RHYTHM POSSIBLE LEFT ATRIAL ENLARGEMENT LEFT VENTRICULAR HYPERTROPHY ABNORMAL ECG Confirmed by MING MITCHELL MD ([id number]) on 09/02/2023 9:46:08 PM Test Reason : Location : 119 : A17 A17 Overread By : MING MITCHELL MD Edited By : MING MITCHELL MD Referred By : SOUTH SABA Acquired by : YASMIN AVILA [facility] ECHOon 08-29-2023 Echocardiography Echocardiography Report: Transthoracic Echo [facility] GUNNAR-2 Date of service: 08/29/2023 1:42:07 PM MECHANIC Ordering physician: MIKE THOMPSON Indication: Shortness of breath Technologist: Ashlee Mera [facility] Interpreting physician: Mikki Etienne MD PATIENT: Name: MRS. ISABEL STOVER : 1960 Age: 63 years Gender: F [...] * * Final * * * [facility] : [id number] Normal [facility] HISTORY PHYSICALon HISTORY PHYSICAL HNO ID: [id number] Author: Elder Galan APRN.ICT SYSTEMS TEST ENGINEER Service: ? Author Type: Nurse Practitioner Type: HANDP Filed: 08/31/2023 9:11 PM Note Text: COLON AND RECTAL HISTORY AND PHYSICAL EXAMINATION SERVICE DATE: 08/29/2023 Primary Care Physician: Roland Serrano DO Chief complaint: pre operative examination Surgeon: Dr. Saba Procedure: Examination under anesthesia, Flexible sigmoidoscopy, injection of formalin, or any other indicated procedure HPI: Isabel Stover is a 63 year old female who [...] Medical Decision Making: Assessment AND Diagnosis: Isabel Stover is a 63 year old female here [...] team about CBC once drawn. Elder Galan APRN.ICT SYSTEMS TEST ENGINEER Pelvic Floor Colorectal Surgery Risk of morbidity, mortality and/or complications of treatment plan: high Normal [facility] TYPE + SCREENon 08-29-2023 ABO group Nom (Bld) O [facility] Blood group antibody screen Ql Negative [facility] HIstorical Ab Scr Status Negative [facility] Rh Nom (Bld) Positive [facility] Type and Screen Expiration 09/01/2023 23:59 [facility] ABO O Normal [facility] Comment on above: Order Comment: Speci men Type: BLOOD SPECIMENOrdering Facility: [facility] Address: [address] [place] [address] Performed By: #### T SCR ####[facility] BLOOD BANKCLIA [id number] [place] [address] [place] HISTORICAL AB SCR STATUS Negative Normal [facility] Comment on above: Order Comment: Speci men Type: BLOOD SPECIMENOrdering Facility: [facility] Address: [address] [place] [address] Performed By: #### T SCR ####[facility] MA[facility] BLOOD BANKCLIA [id number] [place] [address] [place] Rh Nom (Bld) Positive Normal [facility] Comment on above: Order Comment: Speci men Type: BLOOD SPECIMENOrdering Facility: [facility] Address: [address] [place] [address] Performed By: #### T SCR ####CC MA[facility] BLOOD BANKCLIA [id number] [place] [address] [place] TYPE AND SCREEN EXPIRATION 09/01/2023 23:59 Normal [facility] Comment on above: Order Comment: Speci men Type: BLOOD SPECIMENOrdering Facility: [facility] Address: [address] [place] [address] Performed By: #### T SCR ####CC MAIN BLOOD BANKCLIA [id number] [id number] [address] [place] XR CHEST 2V [...] of the thoracic spine. IMPRESSION: See Result. 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 Upper abdomen: Prior cholecystectomy. Wedding Photographer (topogram) images: No additional findings. IMPRESSION: 1. No convincing findings of interstitial lung disease. There is excessive dynamic collapse of mainstem bronchi. 2. Unchanged scattered calcified granulomas. No suspicious lung nodules. Diamond [facility] Dr[facility] Transcribe Date/Time: Aug 22 2023 8:56A Dictated by : RICHARD LOVELACE MD This examination was interpreted and the report reviewed and electronically signed by: RICHARD LOVELACE MD on Aug 22 2023 9:01AM EST [id number] Normal [facility] Comprehensive metabolic 2000 panelon 07-05-2023 Albumin [Mass/Vol] 4.0 g/dL 3.9 - 4.9 g/dL [facility] ALP [Catalytic activity/Vol] 161 U/L High 34 - 123 U/L [facility] ALT [Catalytic activity/Vol] 47 U/L High 7 - 38 U/L [facility] Anion gap [Moles/Vol] 11 mmol/L 9 - 18 mmol/L [facility] AST [Catalytic activity/Vol] 41 U/L High 13 - 35 U/L [facility] Bilirubin [Mass/Vol] 0.3 mg/dL 0.2 - 1 .3 mg/dL [facility] Calcium [Mass/Vol] 9.5 mg/dL 8.5 - 10. 2 mg/dL [facility] Chloride [Moles/Vol] 105 mmol/L 97 - 10 5 mmol/L [facility] CO2 [Moles/Vol] 26 mmol/L 22 - 30 mmol/L [facility] Creatinine [Mass/Vol] 0.74 mg/dL 0.58 - 0.96 mg/dL [facility] Estimated Glomerular Filtration Rate 91 mL/min/1.73m >=60 mL/min/1.73m [facility] Glucose [Mass/Vol] 104 mg/dL High 74 - 99 mg/dL [facility] Potassium [Moles/Vol] 4.5 mmol/L 3.7 - 5.1 mmol/L [facility] Protein [Mass/Vol] 6.3 g/dL 6.3 - 8.0 g/dL [facility] Sodium [Moles/Vol] 142 mmol/L 136 - 144 mmol/L [facility] Urea nitrogen [Mass/Vol] 16 mg/dL 7 - 21 mg/dL [facility] CBC W Auto Differential pane l (Bld)on 07-04-2023 Basophils (Bld) [#/Vol] 0.03 10*3/uL <0.11 k/uL [facility] Basophils/100 WBC (Bld) 0.9 % [facility] Differential cell count method Nom (Bld) Auto [facility] Eosinophils (Bld) [#/Vol] 0.16 10*3/uL <0.46 k/uL [facility] Eosinophils/100 WBC (Bld) 4.9 % [facility] Erythrocyte distribution width (RBC) [Ratio] 19.9 % High 11.5 - 15.0 % [facility] Hematocrit (Bld) [Volume fraction] 25.1 % Low 36.0 - 46.0 % [facility] Hemoglobin (Bld) [Mass/Vol] 7.1 g/dL Low 11.5 - 15.5 g/dL [facility] Immature granulocytes (Bld) [#/Vol] <0.10 k/uL [facility] Immature granulocytes/100 WBC (Bld) 0.3 % [facility] Lymphocytes (Bld) [#/Vol] 1.12 10*3/uL 1.00 - 4.00 k/uL [facility] Lymphocytes/100 WBC (Bld) 34.6 % [facility] MCH (RBC) [Entitic mass] 19.2 pg Low 26.0 - 34.0 pg [facility] MCHC (RBC) [Mass/Vol] 28.3 g/dL Low 30.5 - 36.0 g/dL [facility] MCV (RBC) [Entitic vol] 67.8 fL Low 80.0 - 100.0 fL [facility] Monocytes (Bld) [#/Vol] 0.49 10*3/uL <0.87 k/uL [facility] Monocytes/100 WBC (Bld) 15.1 % [facility] Neutrophils (Bld) [#/Vol] 1.43 10*3/uL Low 1.45 - 7.50 k/uL [facility] Neutrophils/100 WBC (Bld) 44.2 % [facility] Nucleated RBC (Bld) [#/Vol] <0.01 k/uL [facility] Nucleated RBC/100 WBC (Bld) [Ratio] 0.0 /100 WBC [facility] Platelet mean volume (Bld) [Entitic vol] 9.8 fL 9.0 - 12.7 fL [facility] Platelets (Bld) [#/Vol] 304 10*3/uL 150 - 400 k/uL [facility] RBC (Bld) [#/Vol] 3.70 10*6/uL Low 3.90 - 5.2 0 m/uL [facility] WBC (Bld) [#/Vol] 3.24 10*3/uL Low 3.70 - 11. 00 k/uL [facility] HEMOGLOBINon 03-21-2023 Hemoglobin (Bld) [Mass/Vol] 9.1 g/dL Critically low 12.0-16.0 [facility] Comment on above: Performed By: #### H GB ####[facility] [address] [place], [place] [address]EbStephan Cheryl Monzon XR CHEST 2 Von 03-10-2023 [...] by: HENRY LOCK Date: 2023-03-10 13:57 Normal [facility] Covid-19 PCR [facility]on SARS-CoV-2 (COVID-19) RNA ANGELA+probe Ql (Unsp spec) Not detected Normal NOT DETECTED [facility] Comment on above: Result [...] for this test is supported by the [place] of Health and Human Service's declaration that [...] used). Performed By: #### C VDTBH #### [facility] [address] [place] [address] Dr. Cheryl Monzon INFLUENZA A AND B AGon 01-[facility] SEE BELOW Normal [facility] Comment on above: Result Comment: Nega tive for Flu A protein angiten. Infection due to Flu A cannot be ruled out. Flu A angiten in the sample may be below the detection limit of the test. Performed By: #### I NFLUAB #### [facility] [address] [place] [address] Dr. Cheryl Mon[facility] BELOW Normal [facility] Comment on above: Result Comment: Nega tive for Flu B protein antigen. Infection due to Flu B cannot be ruled out. Flu B antigen in the sample may be below the detection limit of the test. Performed By: #### I NFLUAB #### [facility] [address] [place] [address] [address] Cheryl Monzon INFLUENZA A AG Negative Normal NEGATIVE SEE COMMENT [facility] Comment on above: Performed By: #### I NFLUAB #### [facility] [address] [place] [address] [address] Cheryl Monzon INFLUENZA B AG Negative Normal NEGATIVE SEE COMMENT [facility] Comment on above: Performed By: #### I NFLUAB #### [facility] [address] [place] [address] [address] Cheyrl Monzon FERRITIN BLDon 01-04-2023 Ferritin [Mass/Vol] 14.2 ng/mL Low 14.7 - 2 05.1 ng/mL [facility] Iron and Iron binding capaci ty panelon 01-04-2023 Iron [Mass/Vol] 77 ug/dL 41 - 186 ug/dL [facility] Iron binding capacity [Mass/Vol] 382 ug/dL 232 - 386 ug/dL [facility] Iron/TIBC [Molar ratio] 20.2 % 15.0 - 57.0 % [facility] CBC W Auto Differential pane l (Bld)on 01-03-2023 Basophils (Bld) [#/Vol] <0.11 k/uL [facility] Basophils/100 WBC (Bld) 0.4 % [facility] Differential cell count method Nom (Bld) Auto [facility] Eosinophils (Bld) [#/Vol] 0.14 10*3/uL <0.46 k/uL [facility] Eosinophils/100 WBC (Bld) 3.1 % [facility] Erythrocyte distribution width (RBC) [Ratio] 13.0 % 11.5 - 15.0 % [facility] Hematocrit (Bld) [Volume fraction] 35.4 % Low 36.0 - 46.0 % [facility] Hemoglobin (Bld) [Mass/Vol] 11.5 g/dL 11.5 - 15.5 g/dL [facility] Immature granulocytes (Bld) [#/Vol] <0.10 k/uL [facility] Immature granulocytes/100 WBC (Bld) 0.2 % [facility] Lymphocytes (Bld) [#/Vol] 1.31 10*3/uL 1.00 - 4.00 k/uL [facility] Lymphocytes/100 WBC (Bld) 29.0 % [facility] MCH (RBC) [Entitic mass] 30.0 pg 26.0 - 34.0 pg [facility] MCHC (RBC) [Mass/Vol] 32.5 g/dL 30.5 - 36.0 g/dL [facility] MCV (RBC) [Entitic vol] 92.4 fL 80.0 - 100.0 fL [facility] Monocytes (Bld) [#/Vol] 0.50 10*3/uL <0.87 k/uL [facility] Monocytes/100 WBC (Bld) 11.1 % [facility] Neutrophils (Bld) [#/Vol] 2.53 10*3/uL 1.45 - 7.50 k/uL [facility] Neutrophils/100 WBC (Bld) 56.2 % [facility] Nucleated RBC (Bld) [#/Vol] <0.01 k/uL [facility] Nucleated RBC/100 WBC (Bld) [Ratio] 0.0 /100 WBC [facility] Platelet mean volume (Bld) [Entitic vol] 9.9 fL 9.0 - 12.7 fL [facility] Platelets (Bld) [#/Vol] 235 10*3/uL 150 - 400 k/uL [facility] RBC (Bld) [#/Vol] 3.83 10*6/uL Low 3.90 - 5.2 0 m/uL [facility] WBC (Bld) [#/Vol] 4.51 10*3/uL 3.70 - 11. 00 k/uL [facility] Covid-19 PCR ([facility])on SARS-CoV-2 (COVID-19) RNA ANGELA+probe Ql (Unsp spec) Not detected Normal NOT DETECTED [facility] Comment on above: Result [...] for this test is supported by the [place] of Health and Human Service's declaration that [...] used). Performed By: #### C VDTB #### [facility] [address] [place] [address] Dr. Cheryl Monzon INFLUENZA A AND B AGon 11-19 [facility] SEE BELOW Normal [facility] Comment on above: Result Comment: Nega tive for Flu A protein angiten. Infection due to Flu A cannot be ruled out. Flu A angiten in the sample may be below the detection limit of the test. Performed By: #### I NFLUAB #### [facility] [address] [place] [address] Dr. Cheryl Monzon [facility] SEE BELOW Normal [facility] Comment on above: Result Comment: Nega tive for Flu B protein antigen. Infection due to Flu B cannot be ruled out. Flu B antigen in the sample may be below the detection limit of the test. Performed By: #### I NFLUAB #### [facility] [address] [place] [address] Dr. Cheryl Monzon INFLUENZA A AG Negative Normal NEGATIVE SEE COMMENT [facility] Comment on above: Performed By: #### I NFLUAB #### [facility] [address] [place] [address] Dr. Cheryl Monzon INFLUENZA B AG Negative Normal NEGATIVE SEE COMMENT [facility] Comment on above: Performed By: #### I NFLUAB #### [facility] [address] [place] [address] Dr. Cheryl Monzon MG MAMM SCREEN 3D RAGHU CADon 10-04-2022 MG MAMM SCREEN 3D RAGHU CAD Patient: ISABEL STOVER Exam Date: 10/04/2022 : 1960 Gender:F Ordering : DR ROLAND SERRANO D.O. Admission #: [id number] Family : Order #: [id number] CLICK HERE TO VIEW EXAM RADIOLOGY REPORT [...] Treatments radiation-hysterectomy Family Cancers None LOCATION: [facility] BREAST COMPOSITION: Scattered areas fibroglandular [...] MD on 10/04/2022 at 13:53 Normal [facility] COLONOSCOPY (THERAPEUTIC)on 09-26-2022 [facility] T3, TOTAL (TRIIODOTHYRONINE) on 09-05-2022 T3, TOTAL 132 ng/dL Normal 71-180 [facility] Comment on above: Performed By: #### T 3TOTAL ####[facility] [address] [place] [id number]. Cheryl Monzon CBC AUTO DIFFon 09-04-2022 BASO # 0.0 103/ul Normal 0.0-0.1 [facility] Comment on above: Performed By: #### C BC ####[facility] [address] [place] [address]Dr. Cheryl Monzon Basophils/100 WBC (Bld) 0.4 % Normal 0.2-2.0 [facility] Comment on above: Performed By: #### C BC ####[facility] [address] [place] [address]Dr. Cheryl Monzon EO # 0.1 103/ul Normal 0.0-0.7 [facility] Comment on above: Performed By: #### C BC ####[facility] [address] [place] [address]Dr. Cheryl Monzon Eosinophils/100 WBC (Bld) 4.9 % Normal 0.9-7.0 [facility] Comment on above: Performed By: #### C BC ####[facility] [address] [place] [address]Dr. Cheryl Monzon Erythrocyte distribution width (RBC) [Ratio] 12.8 % Normal 11.0-15.0 [facility] Comment on above: Performed By: #### C BC ####[facility] [address] [place], [place] [address]Dr. Cheryl Monzon Hematocrit (Bld) [Volume fraction] 36.7 % Normal 36.0-48.0 [facility] Comment on above: Performed By: #### C BC ####[facility] [address] [place], [place] [address]Dr. Cheryl Monzon Hemoglobin (Bld) [Mass/Vol] 11.8 g/dL Critically low 12.0-16.0 [facility] Comment on above: Performed By: #### C BC ####[facility] [address] [place], [place] [address]Dr. Cheryl Monzon IG # 0.01 10e3/ul Normal 0.00-0.03 [facility] Comment on above: Performed By: #### C BC ####[facility] [address] [place], [place] [address]Dr. Cheryl Monzon IG % 0.4 % Normal 0.0-0.5 [facility] Comment on above: Performed By: #### C BC ####[facility] [address] [place] [address]Dr. Cheryl Monzon LYMPH # 0.8 103/ul Critically low 1.2-3.8 [facility] Comment on above: Performed By: #### C BC ####[facility] [address] [place], [place] [address]Dr. Cheryl Monzon Lymphocytes/100 WBC (Bld) 28.6 % Normal 20.5-60.0 [facility] Comment on above: Performed By: #### C BC ####[facility] [address] [place] [address]Dr. Cheryl Monzon MANUAL DIFF REQ NO Normal [facility] Comment on above: Performed By: #### C BC ####[facility] [address] [place] [address]Dr. Cheryl Monzon MCH (RBC) [Entitic mass] 30.7 pg Normal 26.7-34.0 [facility] Comment on above: Performed By: #### C BC ####[facility] [address] [place], [place] [address]Dr. Cheryl Monzon MCHC (RBC) [Mass/Vol] 32.2 g/dL Normal 29.9-35.2 [facility] Comment on above: Performed By: #### C BC ####[facility] [address] [place], [place] [address]Dr. Cheryl Monzon MCV (RBC) [Entitic vol] 95.6 fL Normal 81.0-99.0 [facility] Comment on above: Performed By: #### C BC ####[facility] [address] [place], [place] [address]Dr. Cheryl Monzon MONO # 0.3 103/ul Normal 0.3-0.8 [facility] Comment on above: Performed By: #### C BC ####[facility] [address] [place], [place] [address]Dr. Cheryl Nicolás Monocytes/100 WBC (Bld) 11.7 % Normal 1.7-12.0 [facility] Comment on above: Performed By: #### C BC ####[facility] [address] [place], [place] [address]Dr. Cheryl Monzon NEUT # 1.4 103/ul Normal 1.4-6.5 [facility] Comment on above: Performed By: #### C BC ####[facility] [address] [place], [place] [address]Dr. Cheryl Monzon Neutrophils/100 WBC (Bld) 54.0 % Normal 43.0-75.0 [facility] Comment on above: Performed By: #### C BC ####[facility] [address] [place], [place] [address]Zj. Cheryl Monzon Platelet mean volume (Bld) [Entitic vol] 9.2 fL Critically low 9.5-13.5 [facility] Comment on above: Performed By: #### C BC ####[facility] [address] [place], [place] [address]W[address]. Cheryl Monzon PLT 217 103/ul Normal 150-450 [facility] Comment on above: Performed By: #### C BC ####[facility] [address] [place], [place] [address]Nf. Cheryl Monzon RBC 3.84 106/ul Critically low 4.20-5.40 [facility] Comment on above: Performed By: #### C BC ####[facility] [address] [place] [address]Dr. Cheryl Monzon WBC 2.7 103/ul Critically low 4.0-11.0 [facility] Comment on above: Performed By: #### C BC ####[facility] [address] [place] [address]DrStephan Monzon FREE T4on 09-04-2022 Free T4 [Mass/Vol] 0.83 ng/dL Normal 0.76-1.46 [facility] Comment on above: Performed By: #### F T4 #### [facility] [address] [place] [address] [address] Cheryl Monzon GLYCOHEMOGLOBIN A1Con 2021 ADA RECOMMENDATION SEE BELOW Normal [facility] Comment on above: Result Comment: ADA RECOMMENDED LIMIT 4.0 - 6.0 ADA THERAPEUTIC TARGET < 7.0 ACTION SUGGESTED > 7.0 Performed By: #### A 1C #### [facility] [address] [place] [address] [address] Cheryl Monzon Glucose [Mass/Vol] 111 mg/dL Normal [facility] Comment on above: Performed By: #### A 1C #### [facility] [address] [place] [address] [address] Cheryl Monzon HbA1c (Bld) [Mass fraction] 5.5 % Normal 4.5-6.2 [facility] Comment on above: Performed By: #### A 1C #### [facility] [address] [place], [place] [address] Dr. Cheryl Monzon LIPID PROFILEon 09-04-2022 CHOL-HDL RATIO NORM SEE BELOW Normal [facility] Comment on above: Result Comment: 3.3 - 4.4 LOW RISK 4.4 - 7.1 AVERAGE RISK 7.1 - 11.0 MODERATE RISK >11.0 HIGH RISK Performed By: #### T SH, LIPID, CMP ####[facility] [address] [place], [place] [address]Gm. Cheryl Monzon Cholesterol [Mass/Vol] 201 mg/dL Critically high <=200 [facility] Comment on above: Performed By: #### T SH, LIPID, CMP ####[facility] [address] [place], [place] [address]Ps. Cheryl Monzon Cholesterol in HDL [Mass/Vol] 78 mg/dL Critically high 40-60 [facility] Comment on above: Performed By: #### T SH, LIPID, CMP ####[facility] [address] [place], [place] [address]Zk. Cheryl Monzon Cholesterol in LDL [Mass/Vol] 112.8 mg/dL Normal [facility] Comment on above: Performed By: #### T SH, LIPID, CMP ####[facility] [address] [place], [place] [address]CyStephan Monzon Cholesterol.total/Chol esterol in HDL [Mass ratio] 2.6 {ratio} Normal [facility] Comment on above: Performed By: #### T SH, LIPID, CMP ####[facility] [address] [place], [place] [address]Hq. Cheryl Monzon HDL NORMAL > or = 60 mg/dl - LO W CARDIOVASCULAR RISK <40 mg/dl - HIGH CARDIOVASCULAR RISK Normal [facility] Comment on above: Performed By: #### T SH, LIPID, CMP ####[facility] [address] [place], [place] [address]Rq. Cheryl Monzon LDL CALC NORMAL SEE BELOW Normal [facility] Comment on above: Result Comment: <100 mg/dl OPTIMAL 100 - 129 mg/dl NEAR OR ABOVE OPTIMAL 130 - 159 mg/dl BORDERLINE HIGH 160 - 189 mg/dl HIGH >190 mg/dl VERY HIGH Performed By: #### T SH, LIPID, CMP ####[facility] [address] [place], [place] [address]NmDr. Cheryl Monzon Triglyceride [Mass/Vol] 51 mg/dL Normal <=150 [facility] Comment on above: Performed By: #### T SH, LIPID, CMP ####[facility] [address] [place], [place] [address]DwDr. Cheryl Monzon VLDL CALC 10.2 mg/dL Normal [facility] Comment on above: Performed By: #### T PUSHPA, LIPID, CMP ####[facility] [address] [place], [place] [address]HvDr. Cheryl Monzon PROF 14(COMP METB)on 022 Albumin [Mass/Vol] 3.3 g/dL Critically low 3.4-5.0 Th [facility] Comment on above: Performed By: #### T PUSHPA, LIPID, CMP #### [facility] [address] [address] [address] Cheryl Monzon Albumin/Globulin [Mass ratio] 1.0 {ratio} Normal [facility] Comment on above: Performed By: #### T PUSHPA, LIPID, CMP #### [facility] [address] [address] [address] Cheryl Monzon ALP [Catalytic activity/Vol] 94 U/L Normal 46-116 [facility] Comment on above: Performed By: #### T SH, LIPID, CMP #### [facility] [address] [address] [address] Cheryl Monzon ALT [Catalytic activity/Vol] 53 U/L Normal 14-59 [facility] Comment on above: Performed By: #### T SH, LIPID, CMP #### [facility] [address] [address] [address] Cheryl Monzon Anion gap [Moles/Vol] 8.8 mmol/L Normal [facility] Comment on above: Performed By: #### T SH, LIPID, CMP #### [facility] [address] [address] [address] Cheryl Monzon AST [Catalytic activity/Vol] 42 U/L Critically high 15-37 [facility] Comment on above: Performed By: #### T SH, LIPID, CMP #### [facility] [address] [address] [address] Cheryl Monzon Bilirubin [Mass/Vol] 0.3 mg/dL Normal 0.2-1.0 [facility] Comment on above: Performed By: #### T SH, LIPID, CMP #### [facility] [address] [place] [address] Dr. Cheryl Monzon Calcium [Mass/Vol] 8.8 mg/dL Normal 8.5-10.1 [facility] Comment on above: Performed By: #### T SH, LIPID, CMP #### [facility] [address] [place] [address] Dr. Cheryl Monzon Chloride [Moles/Vol] 106 mmol/L Normal 98-107 [facility] Comment on above: Performed By: #### T SH, LIPID, CMP #### [facility] [address] [address] [address] Cheryl Monzon CO2 [Moles/Vol] 30.7 mmol/L Normal 21.0-32.0 [facility] Comment on above: Performed By: #### T SH, LIPID, CMP #### [facility] [address] [place] [address] Dr. Cheryl Monzon Creatinine [Mass/Vol] 0.66 mg/dL Normal 0.55-1.02 [facility] Comment on above: Performed By: #### T SH, LIPID, CMP #### [facility] [address] [place] [address] Dr. Cheryl Monzon EGFR-AF FAROESE >60 Normal >=60 [facility] Comment on above: Performed By: #### T SH, LIPID, CMP #### [facility] [address] [place] [address] Dr. Cheryl Monzon EGFR-NON AF FAROESE >60 Normal >=60 [facility] Comment on above: Performed By: #### T SH, LIPID, CMP #### [facility] [address] [address] [address] Cheryl Monzon Globulin (S) [Mass/Vol] 3.4 g/dL Normal [facility] Comment on above: Performed By: #### T SH, LIPID, CMP #### [facility] [address] [address] [address] Cheryl Monzon Glucose [Mass/Vol] 115 mg/dL Critically high 74-106 [facility] Comment on above: Performed By: #### T SH, LIPID, CMP #### [facility] [address] [place] [address] Dr. Cheryl Monzon Potassium [Moles/Vol] 4.5 mmol/L Normal 3.5-5.1 [facility] Comment on above: Performed By: #### T SH, LIPID, CMP #### [facility] [address] [place] [address] Dr. Cheryl Monzon Protein [Mass/Vol] 6.7 g/dL Normal 6.4-8.2 [facility] Comment on above: Performed By: #### T SH, LIPID, CMP #### [facility] [address] [place] [address] Dr. Cheryl Monzon Sodium [Moles/Vol] 141 mmol/L Normal 136-145 [facility] Comment on above: Performed By: #### T SH, LIPID, CMP #### [facility] [address] [place] [address] Dr. Cheryl Monzon Urea nitrogen [Mass/Vol] 16.0 mg/dL Normal 7.0-18.0 [facility] Comment on above: Performed By: #### T SH, LIPID, CMP #### [facility] [address] [place] [address] Dr. Cheryl Monzon Urea nitrogen/Creatinine [Mass ratio] 24.2 mg/mg Normal [facility] Comment on above: Performed By: #### T SH, LIPID, CMP #### [facility] [address] [place] [address] Dr. Cheryl Monzon TSHon 09-04-2022 TSH 0.009 uIU/mL Critically low 0.358-3.740 [facility] Comment on above: Performed By: #### T SH, LIPID, CMP #### [facility] [address] [place], [place] [address] Dr. Cheryl Monzon Covid-19 PCR (CVDTB)on 05-18 SARS-CoV-2 (COVID-19) RNA ANGELA+probe Ql (Unsp spec) Not detected Normal NOT DETECTED [facility] Comment on above: Result [...] for this test is supported by the [place] of Health and Human Service's declaration that [...] used). Performed By: #### C VDTBH #### [facility] [address] [place], [place] [address] Abdomen and Pelvis W cont rast [place] 12-13-2021 IMPRESSION: 1. 5 mm hepatic hypodensity, stable from the prior examination of 06/04/2021, likely related to a small cyst. 2. 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 3. No CT evidence for metastatic disease to the abdomen or pelvis. Transcribe Date/Time: Dec 13 2021 10:01A Dictated by: SERGIO KAISER MD This examination was interpreted and the report reviewed and electronically signed by: SERGIO KAISER MD on Dec 13 2021 10:25AM EST Thank you for allowing us to participate in the care of your patient. Should there be any questions regarding this interpretation, please call [phone]. If you are unable to reach us at the number above, please feel free to contact [facility] at [phone]. DIVISION OF RADIOLOGY * * *Final Report* * * DATE OF EXAM: Dec 13 2021 9:56AM [facility] 0530 - CT ABD/PEL W IVCON / PROCEDURE REASON: Malignant neoplasm of endometrium (HCC) * * * * Physician Interpretation * * * * RESULT: EXAMINATION: CT ABDOMEN AND PELVIS WITH IV CONTRAST CLINICAL HISTORY: Malignant neoplasm of endometrium TECHNIQUE: CT of the abdomen and pelvis was performed using standard technique, scanning from just above the dome of the diaphragm to the symphysis pubis. MQ: CTAP_3 Contrast: IV: 130 ml of Omnipaque 300 Oral: 900 ml of 50 ml of Omnipaque [address] Radiation dose: Integrated Dose-length product (DLP) for this visit = 708 mGy*cm. CT Dose Reduction Employed: Automated exposure control (AEC) COMPARISON: 06/04/2021 RESULT: Liver: 5 mm left lobe hepatic hypodensity, image 29, series 2, stable. No new hepatic lesions. Biliary Tract: No bile duct dilation. The gallbladder is surgically absent. Spleen: No splenomegaly. No mass. Pancreas: No ductal dilatation. 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 Adrenal glands: No mass. Kidneys: No enhancing mass or hydronephrosis. 8 mm upper pole right renal hypodensity, likely related to a cyst, stable. GI Tract: No bowel wall thickening or dilation. Lymph nodes: No substantial mesenteric, retroperitoneal, or pelvic lymphadenopathy. Mesentery: No ascites. No mass. Retroperitoneum: No mass. Vasculature: - Abdominal aorta and iliac arteries: Atherosclerotic calcifications without aneurysm. - Celiac and SMA: Patent. - Portal venous system (SMV, splenic vein, portal vein and branches): Patent. - Hepatic veins: Patent. Pelvis: No free fluid or pelvic mass. The uterus is absent. The unopacified urinary bladder appears unremarkable. No substantial inguinal adenopathy. Images through the lower pelvis are limited secondary to metallic artifact from indwelling right hip prosthesis. Bones/Soft Tissues: Degenerative change involving the lumbar spine. No osseous destructive process. Lower Thorax: A CT examination of the chest has been performed concurrently and will be dictated separately. Wedding Photographer (topogram) images: No additional findings. 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 MQ: CTAP_3 Contrast: IV: 130 ml of Omnipaque 300 Oral: 900 ml of 50 ml of Omnipaque [address] Radiation dose: Integrated Dose-length product (DLP) for this visit = 708 mGy*cm. CT Dose Reduction Employed: Automated exposure control (AEC) COMPARISON: 06/04/2021 RESULT: Liver: 5 mm left lobe hepatic hypodensity, image 29, series 2, stable. No new hepatic lesions. Biliary Tract: No bile duct dilation. The gallbladder is surgically absent. Spleen: No splenomegaly. No mass. Pancreas: No ductal dilatation. 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 Adrenal glands: No mass. Kidneys: No enhancing mass or hydronephrosis. 8 mm upper pole right renal hypodensity, likely related to a cyst, stable. GI Tract: No bowel wall thickening or dilation. Lymph nodes: No substantial mesenteric, retroperitoneal, or pelvic lymphadenopathy. Mesentery: No ascites. No mass. Retroperitoneum: No mass. Vasculature: - Abdominal aorta and iliac arteries: Atherosclerotic calcifications without aneurysm. - Celiac and SMA: Patent. - Portal venous system (SMV, splenic vein, portal vein and branches): Patent. - Hepatic veins: Patent. Pelvis: No free fluid or pelvic mass. The uterus is absent. The unopacified urinary bladder appears unremarkable. No substantial inguinal adenopathy. Images through the lower pelvis are limited secondary to metallic artifact from indwelling right hip prosthesis. Bones/Soft Tissues: Degenerative change involving the lumbar spine. No osseous destructive process. Lower Thorax: A CT examination of the chest has been performed concurrently and will be dictated separately. Wedding Photographer (topogram) images: No additional findings. IMPRESSION IMPRESSION: 1. 5 mm hepatic hypodensity, stable from the prior examination of 06/04/2021, likely related to a small cyst. 2. 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 3. No CT evidence for metastatic disease to the abdomen or pelvis. Transcribe Date/Time: Dec 13 2021 10:01A Dictated by: SERGIO KAISER MD This examination was interpreted and the report reviewed and electronically signed by: SERGIO KAISER MD on Dec 13 2021 10:25AM EST Thank you for allowing us to participate in the care of your patient. Should there be any questions regarding this interpretation, please call [phone]. If you are unable to reach us at the number above, please feel free to contact [facility] at [phone]. [facility] CT Abdomen and Pelvis W cont rast IVOrdered By: [facility] Provider on 12-13-[address] [facility] [address] Chest W contrast [place] IMPRESSION: No evidence for metastatic disease to the chest. Evidence for prior granulomatous disease, as above. Transcribe Date/Time: Dec 13 2021 10:14A Dictated by: SERGIO KAISER MD This examination was interpreted and the report reviewed and electronically signed by: SERGIO KAISER MD on Dec 13 2021 10:24AM EST Thank you for allowing us to participate in the care of your patient. Should there be any questions regarding this interpretation, please call [phone]. If you are unable to reach us at the number above, please feel free to contact [facility] at [phone]. DIVISION OF RADIOLOGY * * *Final Report* * * DATE OF EXAM: Dec 13 2021 9:56AM [facility] 0539 - CT CHEST W IVCON / PROCEDURE REASON: Malignant neoplasm of endometrium (HCC) * * * * Physician Interpretation * * * * RESULT: EXAMINATION: CHEST CT WITH CONTRAST CLINICAL HISTORY: Neoplasm: endometrial, rx monitor or follow up Technique: Spiral CT acquisition of the chest from the thoracic inlet to the upper abdomen following IV contrast. MQ: CTCW_6 Contrast: 130 mL Omnipaque [address] Radiation dose: Integrated Dose-length product (DLP) for this visit = 708 mGy*cm CT Dose Reduction Employed: Automated exposure control (AEC) Comparison: CT chest 06/04/2021 RESULT: Limitations: None. Lines, tubes, and devices: None. Lung parenchyma, airways, pleural: No consolidative process or pleural effusion. The trachea and major airways appear patent. Densely calcified right lower lobe granuloma is again appreciated. No suspicious enlarging nodule. Lower neck, lymph nodes, and mediastinum: The thyroid gland is diffusely heterogeneous, bilateral subcentimeter nodules, stable. No substantial supraclavicular or axillary lymphadenopathy. Numerous subcentimeter mediastinal lymph nodes, stable. No substantial mediastinal or hilar adenopathy is identified. Subcarinal and right hilar granulomas calcification is again appreciated. Heart, pericardium, and thoracic vessels: The thoracic aorta is normal in caliber. No substantial pericardial effusion. Bones/Soft Tissues: No osseous destructive process. T6 vertebral body hemangioma, stable. Upper Abdomen: A CT examination of the abdomen has been performed concurrently and will be dictated separately. Wedding Photographer (topogram) images: No additional findings. DIVISION OF RADIOLOGY Provider, [facility] - 12/13/2021 * * *Final Report* * * DATE OF EXAM: Dec 13 2021 9:56AM [facility] 0539 - CT CHEST W IVCON / PROCEDURE REASON: Malignant neoplasm of endometrium (HCC) * * * * Physician Interpretation * * * * RESULT: EXAMINATION: CHEST CT WITH CONTRAST CLINICAL HISTORY: Neoplasm: endometrial, rx monitor or follow up Technique: Spiral CT acquisition of the chest from the thoracic inlet to the upper abdomen following IV contrast. MQ: CTCW_6 Contrast: 130 mL Omnipaque [address] Radiation dose: Integrated Dose-length product (DLP) for this visit = 708 mGy*cm CT Dose Reduction Employed: Automated exposure control (AEC) Comparison: CT chest 06/04/2021 RESULT: Limitations: None. Lines, tubes, and devices: None. Lung parenchyma, airways, pleural: No consolidative process or pleural effusion. The trachea and major airways appear patent. Densely calcified right lower lobe granuloma is again appreciated. No suspicious enlarging nodule. Lower neck, lymph nodes, and mediastinum: The thyroid gland is diffusely heterogeneous, bilateral subcentimeter nodules, stable. No substantial supraclavicular or axillary lymphadenopathy. Numerous subcentimeter mediastinal lymph nodes, stable. No substantial mediastinal or hilar adenopathy is identified. Subcarinal and right hilar granulomas calcification is again appreciated. Heart, pericardium, and thoracic vessels: The thoracic aorta is normal in caliber. No substantial pericardial effusion. Bones/Soft Tissues: No osseous destructive process. T6 vertebral body hemangioma, stable. Upper Abdomen: A CT examination of the abdomen has been performed concurrently and will be dictated separately. Wedding Photographer (topogram) images: No additional findings. IMPRESSION IMPRESSION: No evidence for metastatic disease to the chest. Evidence for prior granulomatous disease, as above. Transcribe Date/Time: Dec 13 2021 10:14A Dictated by: SERGIO KAISER MD This examination was interpreted and the report reviewed and electronically signed by: SERGIO KAISER MD on Dec 13 2021 10:24AM EST Thank you for allowing us to participate in the care of your patient. Should there be any questions regarding this interpretation, please call [phone]. If you are unable to reach us at the number above, please feel free to contact [facility] at [phone]. [facility] No Panel Informationon 12-13 Radiology Study observation (narrative) [facility] CBC with Diffon 11-22-2021 Abs. Basophil 0.00 k/uL Normal 0.0-0.2 [facility] Comment on above: Performed By: #### C DP, CMPX, SED, LAC #### [facility] [address] [place] [address] Receiving Coordinator: Jacob Campos MD Abs.Neutrophil (Seg) 2.80 k/uL Normal 2.5-7.0 [facility] Comment on above: Performed By: #### C DP, CMPX, SED, LAC #### [facility] [address] [place] [address] Receiving Coordinator: Jacob Campos MD Auto Diff Performed YES Normal [facility] Comment on above: Performed By: #### C DP, CMPX, SED, LAC #### [facility] [address] [place] [address] Receiving Coordinator: Jacob Campos MD Basophils/100 WBC (Bld) 1 % Normal 0-2 [facility] Comment on above: Performed By: #### C DP, CMPX, SED, LAC #### [facility] [address] [place] [address] Receiving Coordinator: Jacob Campos MD Eosinophils (Bld) [#/Vol] 0.10 10*3/uL Normal 0.0-0.4 [facility] Comment on above: Performed By: #### C DP, CMPX, SED, LAC #### [facility] [address] [id number] Receiving Coordinator: Jacob Campos MD Eosinophils/100 WBC (Bld) 3 % Normal 0-5 [facility] Comment on above: Performed By: #### C DP, CMPX, SED, LAC #### [facility] [address] [place] [address] Receiving Coordinator: Jacob Campos MD Erythrocyte distribution width (RBC) [Ratio] 13.6 % Normal 12.1-15.2 [facility] Comment on above: Performed By: #### C DP, CMPX, SED, LAC #### [facility] [address] [id number] Receiving Coordinator: Jacob Campos MD Hematocrit (Bld) [Volume fraction] 33.4 % Low 36-46 [facility] Comment on above: Performed By: #### C DP, CMPX, SED, LAC #### [facility] [address] [place] [address] Receiving Coordinator: Jacob Campos MD Hemoglobin (Bld) [Mass/Vol] 11.3 g/dL Low 12.0-16.0 [facility] Comment on above: Performed By: #### C DP, CMPX, SED, LAC #### [facility] [address] [id number] Receiving Coordinator: Jacob Campos MD Lymphocytes (Bld) [#/Vol] 0.80 10*3/uL Low 1.0-4.8 [facility] Comment on above: Performed By: #### C DP, CMPX, SED, LAC #### [facility] [address] [place] [address] Receiving Coordinator: Jacob Campos MD Lymphocytes/100 WBC (Bld) 19 % Normal 15-40 [facility] Comment on above: Performed By: #### C DP, CMPX, SED, LAC #### [facility] [address] [place] [address] Receiving Coordinator: Jacob Campos MD MCH (RBC) [Entitic mass] 30.5 pg Normal 26-34 [facility] Comment on above: Performed By: #### C DP, CMPX, SED, LAC #### [facility] [address] [place] [address] Receiving Coordinator: Jacob Campos MD MCHC (RBC) [Mass/Vol] 33.8 g/dL Normal 31-37 [facility] Comment on above: Performed By: #### C DP, CMPX, SED, LAC #### [facility] [address] [place] [address] Receiving Coordinator: Jacob Campos MD MCV (RBC) [Entitic vol] 90.4 fL Normal 80-100 [facility] Comment on above: Performed By: #### C DP, CMPX, SED, LAC #### [facility] [address] [place] [address] Receiving Coordinator: Jacob Campos MD Monocytes (Bld) [#/Vol] 0.50 10*3/uL Normal 0.0-1.0 [facility] Comment on above: Performed By: #### C DP, CMPX, SED, LAC #### [facility] [address] [place] [address] Receiving Coordinator: Jacob Campos MD Monocytes/100 WBC (Bld) 12 % High 4-8 [facility] Comment on above: Performed By: #### C DP, CMPX, SED, LAC #### [facility] [address] [place] [address] Receiving Coordinator: Jacob Campos MD Neutrophil (Seg) 65 % Normal 47-75 [facility] Comment on above: Performed By: #### C DP, CMPX, SED, LAC #### [facility] [address] [place] [address] Receiving Coordinator: Jacob Campos MD Platelets (Bld) [#/Vol] 378 10*3/uL Normal 140-450 [facility] Comment on above: Performed By: #### C DP, CMPX, SED, LAC #### [facility] [address] [place] [address] Receiving Coordinator: Jacob Campos MD RBC (Bld) [#/Vol] 3.70 10*6/uL Low 4.0-5.2 [facility] Comment on above: Performed By: #### C DP, CMPX, SED, LAC #### [facility] [address] [place] [address] Receiving Coordinator: Jacob Campos MD WBC (Bld) [#/Vol] 4.3 10*3/uL Normal 3.5-11.0 [facility] Comment on above: Performed By: #### C DP, CMPX, SED, LAC #### [facility] [address] [place], [place] [id number] Receiving Coordinator: Jacob Campos MD Comp Metabolic Pr/rfx MGon 0 11-22-2021 (cont.) Normal [facility] Comment on above: Result Comment: Aver age GFR for 60-69 years old: 85 mL/min/1.73sq m Chronic Kidney Disease: <60 mL/min/1.73sq m Kidney failure: <15 mL/min/1.73sq m eGFR calculated using average adult body mass. Additional eGFR calculator available at: http://www.Where/multiple_crcl_2012.htm Performed By: #### C DP, CMPX, SED, LAC #### [facility] [address] [place] [address] Receiving Coordinator: Jacob Campos MD Albumin [Mass/Vol] 3.5 g/dL Normal 3.5-5.2 [facility] Comment on above: Performed By: #### C DP, CMPX, SED, LAC #### [facility] [address] [place], [place] [id number] Receiving Coordinator: Jacob Campos MD Alkaline Phos 239 U/L High 35-104 [facility] Comment on above: Performed By: #### C DP, CMPX, SED, LAC #### [facility] [address] [place], [place] [id number] Receiving Coordinator: Jacob Campos MD ALT [Catalytic activity/Vol] 23 U/L Normal 5-33 [facility] Comment on above: Performed By: #### C DP, CMPX, SED, LAC #### [facility] [address] [place], [place] [id number] Receiving Coordinator: Jacob Campos MD Anion gap [Moles/Vol] 11 mmol/L Normal 9-17 [facility] - [place] Comment on above: Performed By: #### C DP, CMPX, SED, LAC #### [facility] [place] [address] [place], [place] [id number] Receiving Coordinator: Jacob Campos MD AST [Catalytic activity/Vol] 21 U/L Normal <32 [facility] Comment on above: Performed By: #### C DP, CMPX, SED, LAC #### [facility] [place] [address] [place], [place] [id number] Receiving Coordinator: Jacob Campos MD Bilirubin [Mass/Vol] 0.27 mg/dL Low 0.30-1.20 [facility] Comment on above: Performed By: #### C DP, CMPX, SED, LAC #### [facility] [place] [facility] [address] [place] [address] Receiving Coordinator: Jacob Campos MD BUN/CRE Ratio 22 High 9-20 [facility] Comment on above: Performed By: #### C DP, CMPX, SED, LAC #### [facility] [place] [address] [place] [id number] Receiving Coordinator: Jacob Campos MD Calcium [Mass/Vol] 9.5 mg/dL Normal 8.6-10.4 [facility] Comment on above: Performed By: #### C DP, CMPX, SED, LAC #### [facility] [place] [facility] [address] [place], [place] [phone] Receiving Coordinator: Jacob Campos MD Chloride [Moles/Vol] 102 mmol/L Normal 98-107 [facility] Comment on above: Performed By: #### C DP, CMPX, SED, LAC #### [facility] [place] [address] [place], [place] [phone] Receiving Coordinator: Jacob Campos MD CO2 [Moles/Vol] 26 mmol/L Normal 20-31 [facility] Comment on above: Performed By: #### C DP, CMPX, SED, LAC #### [facility] [place] [facility] [address] [place] [address] Receiving Coordinator: Jacob Campos MD Creatinine [Mass/Vol] 0.58 mg/dL Normal 0.50-0.90 [facility] [place] Comment on above: Performed By: #### C DP, CMPX, SED, LAC #### [facility] [place] [address] [place], [place] [phone] Receiving Coordinator: Jacob Campos MD GFR, Amer >60 Normal >60 [facility] Comment on above: Performed By: #### C DP, CMPX, SED, LAC #### [facility] [place] [address] [place], [place] [id number] Receiving Coordinator: Jacob Campos MD GFR,non Amer >60 Normal >60 [facility] Comment on above: Performed By: #### C DP, CMPX, SED, LAC #### [facility] [place] [address] [place], [place] [id number] Receiving Coordinator: Jacob Campos MD Glucose [Mass/Vol] 109 mg/dL High 70-99 [facility] Comment on above: Performed By: #### C DP, CMPX, SED, LAC #### [facility] [address] [place] [address] Receiving Coordinator: Jacob Campos MD Potassium [Moles/Vol] 3.7 mmol/L Normal 3.7-5.3 [facility] [place] Comment on above: Performed By: #### C DP, CMPX, SED, LAC #### [facility] [place] [facility] [address] [place] [address] Receiving Coordinator: Jacob Campos MD Protein [Mass/Vol] 7.0 g/dL Normal 6.4-8.3 [facility] Comment on above: Performed By: #### C DP, CMPX, SED, LAC #### [facility] [address] [place] [address] Receiving Coordinator: Jacob Campos MD Sodium [Moles/Vol] 139 mmol/L Normal 135-144 [facility] Comment on above: Performed By: #### C DP, CMPX, SED, LAC #### [facility] [place] [address] [place], [place] [id number] Receiving Coordinator: Jacob Campos MD Urea nitrogen [Mass/Vol] 13 mg/dL Normal 8-23 [facility] Comment on above: Performed By: #### C DP, CMPX, SED, LAC #### [facility] [address] [place] [phone] Receiving Coordinator: Jacob Campos MD Lactic Acidon 11-22-2021 Lactate [Moles/Vol] 0.7 mmol/L Normal 0.5-2.2 [facility] Comment on above: Performed By: #### C DP, CMPX, SED, LAC #### [facility] [address] [place] [address] Receiving Coordinator: Jacob Campos MD Sedimentation Rateon 022 Sedimentation Rate 48 mm High 0-30 [facility] Comment on above: Performed By: #### C DP, CMPX, SED, LAC #### [facility] [address] [place] [address] Receiving Coordinator: Jacob Campos MD Urinalysis, Routineon 2021 Bilirubin, SemiQt,Ur Negative Normal NEG [facility] Comment on above: Performed By: #### U A #### [facility] [address] [place] [phone] Receiving Coordinator: Jacob Campos MD Blood, Urine Negative Normal NEG [facility] Comment on above: Performed By: #### U A #### [facility] [place] [address] [place] [phone] Receiving Coordinator: Jacob Campos MD Clarity (U) Clear Normal CLEAR [facility] Comment on above: Performed By: #### U A #### [facility] [place] [address] [place] [phone] Receiving Coordinator: Jacob Capmos MD Color (U) Yellow Normal YEL [facility] Comment on above: Performed By: #### U A #### [facility] [address] [place] [address] Receiving Coordinator: Jacob Campos MD Comment Normal [facility] Comment on above: Performed By: #### U A #### [facility] [address] [place], [place] [phone] Receiving Coordinator: Jacob Campos MD Glucose Ql (U) Negative Normal NEG [facility] Comment on above: Performed By: #### U A #### [facility] [address] [place] [address] Receiving Coordinator: Jacob Campos MD Ketones Ql (U) Negative Normal NEG [facility] Comment on above: Performed By: #### U A #### [facility] [address] [place], [place] [phone] Receiving Coordinator: Jacob Campos MD Leukocyte esterase Test strip Ql (U) Negative Normal NEG [facility] Comment on above: Performed By: #### U A #### [facility] [address] [place], [place] [phone] Receiving Coordinator: Jacob Campos MD Nitrite,Ur Negative Normal NEG [facility] Comment on above: Performed By: #### U A #### [facility] [place] [address] [place], [place] [phone] Receiving Coordinator: Jacob Campos MD PH,Ur 6.5 Normal 5.0-8.0 [facility] Comment on above: Performed By: #### U A #### [facility] [place] [facility] [address] [place], [place] [phone] Receiving Coordinator: Jacob Campos MD Protein Ql (U) Negative Normal NEG [facility] Comment on above: Performed By: #### U A #### [facility] [address] [place] [address] Receiving Coordinator: Jacob Campos MD Spec. [place],Ur 1.015 Normal 1.005-1.030 [facility] Comment on above: Performed By: #### U A #### [facility] [place] [address] [place] [address] Receiving Coordinator: Jacob Campos MD Urobilinogen,Ur Normal Normal NORM [facility] Comment on above: Performed By: #### U A #### [facility] [address] [place], [place] [phone] Receiving Coordinator: Jacob Campos MD Basic Metabolic Panelon Calcium [Mass/Vol] 9.4 mg/dL Normal 8.2-10.2 [facility] Comment on above: Performed By: #### C BC, BMP #### [facility] [address] Chloride [Moles/Vol] 101 mmol/L Normal 95-114 [facility] Comment on above: Performed By: #### C BC, BMP #### [facility] [address] CO2 [Moles/Vol] 26.3 mmol/L Normal 22.0-30.0 [facility] Comment on above: Performed By: #### C BC, BMP #### [facility] [address] [place] [address] [place] Creatinine [Mass/Vol] 0.72 mg/dL Normal 0.44-1.03 [facility] Comment on above: Performed By: #### C BC, BMP #### [facility] [address] [place] [address] [place] Creatinine Clr Calc Pharmacy 76.81 Normal [facility] Comment on above: Result Comment: PERF ORMED BY: [place] [address] PATHOLOGIST L TACKER CLAIRE ANTHONY M.D. Performed By: #### C BC, BMP #### [facility] [address] Estimated GFR ( Damon > 60 Normal [facility] Comment on above: Result Comment: GFR estimated reference range: According to KDOQI guidelines, <60 ml/min/1.73m2 is sufficient to diagnose a patient with chronic kidney disease. Performed By: #### C BC, BMP #### [facility] [address] Estimated GFR (Non- Am > 60 Normal [facility] Comment on above: Performed By: #### C BC, BMP #### [facility] [address] Glucose [Mass/Vol] 104 mg/dL High 70-100 [facility] Comment on above: Result Comment: [place] Glucose Reference Range is dependent on time and content of last meal. Glucose of more than 200 mg/dL in a nonstressed, ambulatory subject supports the diagnosis of Diabetes Mellitus. ADA recommended reference range Performed By: #### C BC, BMP #### [address] Potassium [Moles/Vol] 3.8 mmol/L Normal 3.5-5.1 [facility] Comment on above: Performed By: #### C BC, BMP #### [facility] [address] Sodium [Moles/Vol] 138 mmol/L Normal 136-146 [facility] Comment on above: Performed By: #### C BC, BMP #### [address] Urea nitrogen [Mass/Vol] 13 mg/dL Normal 9-23 [facility] Comment on above: Performed By: #### C BC, BMP #### [address] CBC with Diffon 11-21-2021 Abs.Imm.Granulocyte NOT REPORTED Normal 0.00-0.30 [facility] [place] Comment on above: Performed By: #### C DP, CMPX, SED, LAC #### [facility] [place] [facility] [address] [place], [place] [phone] Receiving Coordinator: Jacob Campos MD Immature Granulocyte NOT REPORTED Normal 0 [facility] Comment on above: Performed By: #### C DP, CMPX, SED, LAC #### [facility] [place] [facility] [address] [place], [place] [phone] Receiving Coordinator: Jacob Campos MD MPV NOT REPORTED Normal 6.0-12.0 [facility] Comment on above: Performed By: #### C DP, CMPX, SED, LAC #### [facility] [place] [address] [place] [phone] Receiving Coordinator: Jacob Campos MD NRBC Automated NOT REPORTED Normal [facility] Comment on above: Performed By: #### C DP, CMPX, SED, LAC #### [facility] [place] [address] [place] [phone] Receiving Coordinator: Jacob Campos MD Platelet Comment NOT REPORTED Normal [facility] Comment on above: Performed By: #### C DP, CMPX, SED, LAC #### [facility] [place] [facility] [address] [place] [phone] Receiving Coordinator: Jacob Campos MD RBC morphology finding Nom (Bld) NOT REPORTED Normal [facility] Comment on above: Performed By: #### C DP, CMPX, SED, LAC #### [facility] [place] [facility] [address] [place] [phone] Receiving Coordinator: Jacob Campos MD WBC Morphology NOT REPORTED Normal [facility] Comment on above: Performed By: #### C DP, CMPX, SED, LAC #### [facility] [address] [place] [phone] Receiving Coordinator: Jacob Campos MD Comp Metabolic Pr/rfx MGon 0 - Albumin/Glob Ratio NOT REPORTED Normal 1.0-2.5 [facility] Comment on above: Performed By: #### C DP, CMPX, SED, LAC #### [facility] [address] [place], [place] [phone] Receiving Coordinator: Jacob Campos MD Staging: NOT REPORTED Normal [facility] Comment on above: Performed By: #### C DP, CMPX, SED, LAC #### [facility] [address] [place], [place] [phone] Receiving Coordinator: Jacob Campos MD Complete Blood Count Auto Di ffon 11-21-2021 Basophils (Bld) [#/Vol] 0.0 10*3/uL Normal 0.0-0.2 [facility] Comment on above: Result Comment: PERF ORMED BY: [place] [address] PATHOLOGIST L TACKER CLAIRE ANTHONY M.D. Performed By: #### C BC, BMP #### [address] Basophils/100 WBC (Bld) 0.7 % Normal . [facility] Comment on above: Performed By: #### C BC, BMP #### [place] [address] [place] Eosinophils (Bld) [#/Vol] 0.1 10*3/uL Normal 0.0-0.45 [facility] Comment on above: Performed By: #### C BC, BMP #### [place] [address] [place] Eosinophils/100 WBC (Bld) 2.8 % Normal . [facility] Comment on above: Performed By: #### C BC, BMP #### [address] Erythrocyte distribution width (RBC) [Ratio] 13.2 % Normal 11.9-15.3 [facility] Comment on above: Performed By: #### C BC, BMP #### [address] Hematocrit (Bld) [Volume fraction] 35.7 % Normal 34.0-46.4 [facility] Comment on above: Performed By: #### C BC, BMP #### [facility] [address] Hemoglobin (Bld) [Mass/Vol] 11.9 g/dL Normal 11.8-15.4 [facility] Comment on above: Performed By: #### C BC, BMP #### [facility] [address] Lymphocytes (Bld) [#/Vol] 0.8 10*3/uL Low 1.00-4.8 [facility] Comment on above: Performed By: #### C BC, BMP #### [facility] [address] Lymphocytes/100 WBC (Bld) 16.7 % Normal . [facility] Comment on above: Performed By: #### C BC, BMP #### [facility] [address] MCH (RBC) [Entitic mass] 30.2 pg Normal 24.7-34.3 [facility] Comment on above: Performed By: #### C BC, BMP #### [facility] [address] MCV (RBC) [Entitic vol] 90.6 fL Normal 80-100 [facility] Comment on above: Performed By: #### C BC, BMP #### [facility] [address] Mean Corpuscular HGB Conc 33.3 g/dL Normal 32.0-35.0 [facility] Comment on above: Performed By: #### C BC, BMP #### [facility] [address] [place] [address] [place] Monocytes (Bld) [#/Vol] 0.4 10*3/uL Normal 0.0-0.8 [facility] Comment on above: Performed By: #### C BC, BMP #### [facility] [address] [place] [address] [place] Monocytes/100 WBC (Bld) 9.1 % Normal . [facility] Comment on above: Performed By: #### C BC, BMP #### [facility] [address] [place] [address] [place] Neutrophils (Bld) [#/Vol] 3.4 10*3/uL Normal 1.8-7.7 [facility] Comment on above: Performed By: #### C BC, BMP #### [facility] [address] [place] [address] [place] Neutrophils/100 WBC (Bld) 70.7 % Normal . [facility] Comment on above: Performed By: #### C SANTANA, BMP #### [facility] [address] [place] [address] [place] Nucleated RBC/100 WBC (Bld) [Ratio] 0.0 % Normal 0-0.5 [facility] Comment on above: Performed By: #### C SANTANA, BMP #### [facility] [address] [place] [address] [place] Platelet mean volume (Bld) [Entitic vol] 6.9 fL Normal 6.3-10.7 [facility] Comment on above: Performed By: #### C SANTANA, BMP #### [facility] [address] [place] [address] [place] Platelets (Bld) [#/Vol] 423 10*3/uL Normal 150-450 [facility] Comment on above: Performed By: #### C SANTANA, BMP #### [facility] [address] [place] [id number] [place] RBC (Bld) [#/Vol] 3.94 10*6/uL Normal 3.60-5.00 [facility] Comment on above: Performed By: #### C BC, BMP #### [facility] [address] [place] [phone] [place] WBC (Bld) [#/Vol] 4.8 10*3/uL Normal 4.5-11.0 [facility] Comment on above: Performed By: #### C SANTANA, BMP #### [facility] [address] [place] [id number] [place] Dipstick and Microscopicon 0 11-21-2021 Appearance (U) Clear Normal Clear [facility] Comment on above: Order Comment: Name Collection Type:: Clean-Voided Midstream Performed By: #### C BC, BMP #### [facility] [address] [place] [address] [place] Bacteria,Urine None Seen Normal None Seen [facility] Comment on above: Order Comment: Name Collection Type:: Clean-Voided Midstream Performed By: #### C BC, BMP #### [facility] [address] [place] [address] [place] Bilirubin,Urine Negative Normal Negative [facility] Comment on above: Order Comment: Name Collection Type:: Clean-Voided Midstream Performed By: #### C BC, BMP #### [address] Color (U) Yellow Normal Yellow [facility] Comment on above: Order Comment: Name Collection Type:: Clean-Voided Midstream Performed By: #### C BC, BMP #### [facility] [address] [place] [address] Glucose Ql (U) Normal Normal Normal [facility] Comment on above: Order Comment: Name Collection Type:: Clean-Voided Midstream Performed By: #### C BC, BMP #### [place] [address] [place] Hyaline Casts,Urine 0-8 Normal 0-8 [facility] Comment on above: Order Comment: Name Collection Type:: Clean-Voided Midstream Result Comment: PERF ORMED BY: [place] [address] PATHOLOGIST L TACKER CLAIRE ANTHONY M.D. Performed By: #### C BC, BMP #### [facility] [address] [place] [address] [place] Ketones Ql (U) Negative Normal Negative [facility] Comment on above: Order Comment: Name Collection Type:: Clean-Voided Midstream Performed By: #### C BC, BMP #### [facility] [address] [place] [address] [place] Leukocyte esterase Test strip Ql (U) 1+ High Negative [facility] Comment on above: Order Comment: Name Collection Type:: Clean-Voided Midstream Performed By: #### C BC, BMP #### [facility] [address] [place] [address] [place] Nitrite,Urine Negative Normal Negative [facility] Comment on above: Order Comment: Name Collection Type:: Clean-Voided Midstream Performed By: #### C BC, BMP #### [address] Occult Blood,Urine Negative Normal Negative [facility] Comment on above: Order Comment: Name Collection Type:: Clean-Voided Midstream Result Comment: PERF ORMED BY: [place] [address] PATHOLOGIST L TACKER CLAIRE ANTHONY M.D. Performed By: #### C BC, BMP #### [address] pH (U) 6.5 [pH] Normal 5.0-9.0 [facility] Comment on above: Order Comment: Name Collection Type:: Clean-Voided Midstream Performed By: #### C BC, BMP #### [place] [address] [place] Protein,Urine Negative Normal Negative [facility] Comment on above: Order Comment: Name Collection Type:: Clean-Voided Midstream Performed By: #### C BC, BMP #### [facility] [address] [place] [address] [place] RBC,Urine 1-2 Normal 0-4 [facility] Comment on above: Order Comment: Name Collection Type:: Clean-Voided Midstream Performed By: #### C BC, BMP #### [facility] [address] [place] [address] [place] Specificy [place],Urine 1.014 Normal 1.001-1.030 [facility] Comment on above: Order Comment: Name Collection Type:: Clean-Voided Midstream Performed By: #### C BC, BMP #### [place] [address] [place] Squamous Epithelial Cell,Urine None Seen Normal 0-2 [facility] Comment on above: Order Comment: Name Collection Type:: Clean-Voided Midstream Performed By: #### C BC, BMP #### [address] Urobilinogen,Urine Normal Normal Normal [facility] Comment on above: Order Comment: Name Collection Type:: Clean-Voided Midstream Performed By: #### C BC, BMP #### [address] WBC,Urine 1-2 Normal 0-4 [facility] Comment on above: Order Comment: Name Collection Type:: Clean-Voided Midstream Performed By: #### C BC, BMP #### [address] Complete Blood Count Auto Di ffon 11-04-2021 Basophils (Bld) [#/Vol] 0.0 10*3/uL Normal 0.0-0.2 [facility] Comment on above: Result Comment: PERF ORMED BY: [place] [address] PATHOLOGIST L TACKER CLAIRE ANTHONY M.D. Performed By: #### C BC, BMP #### [address] Basophils/100 WBC (Bld) 0.1 % Normal . [facility] Comment on above: Performed By: #### C BC, BMP #### [place] [address] [place] Eosinophils (Bld) [#/Vol] 0.1 10*3/uL Normal 0.0-0.45 [facility] Comment on above: Performed By: #### C BC, BMP #### [place] [address] [place] Eosinophils/100 WBC (Bld) 1.3 % Normal . [facility] Comment on above: Performed By: #### C BC, BMP #### [address] Erythrocyte distribution width (RBC) [Ratio] 13.0 % Normal 11.9-15.3 [facility] Comment on above: Performed By: #### C BC, BMP #### [address] Hematocrit (Bld) [Volume fraction] 27.5 % Low 34.0-46.4 [facility] Comment on above: Performed By: #### C BC, BMP #### [address] Hemoglobin (Bld) [Mass/Vol] 9.3 g/dL Low 11.8-15.4 [facility] Comment on above: Performed By: #### C BC, BMP #### [address] Lymphocytes (Bld) [#/Vol] 0.5 10*3/uL Low 1.00-4.8 [facility] Comment on above: Performed By: #### C BC, BMP #### [address] Lymphocytes/100 WBC (Bld) 6.3 % Normal . [facility] Comment on above: Performed By: #### C BC, BMP #### [address] MCH (RBC) [Entitic mass] 31.1 pg Normal 24.7-34.3 [facility] Comment on above: Performed By: #### C BC, BMP #### [address] MCV (RBC) [Entitic vol] 92.0 fL Normal 80-100 [facility] Comment on above: Performed By: #### C BC, BMP #### [address] Mean Corpuscular HGB Conc 33.8 g/dL Normal 32.0-35.0 [facility] Comment on above: Performed By: #### C BC, BMP #### [address] Monocytes (Bld) [#/Vol] 0.8 10*3/uL Normal 0.0-0.8 [facility] Comment on above: Performed By: #### C BC, BMP #### [facility] [address] [place] [address] [place] Monocytes/100 WBC (Bld) 10.8 % Normal . [facility] Comment on above: Performed By: #### C BC, BMP #### [facility] [address] [place] [address] [place] Neutrophils (Bld) [#/Vol] 5.9 10*3/uL Normal 1.8-7.7 [facility] Comment on above: Performed By: #### C BC, BMP #### [facility] [address] [place] [address] [place] Neutrophils/100 WBC (Bld) 81.5 % Normal . [facility] Comment on above: Performed By: #### C BC, BMP #### [facility] [address] [place] [address] [place] Nucleated RBC/100 WBC (Bld) [Ratio] 0.0 % Normal 0-0.5 [facility] Comment on above: Performed By: #### C BC, BMP #### [facility] [address] [place] [address] [place] Platelet mean volume (Bld) [Entitic vol] 7.4 fL Normal 6.3-10.7 [facility] Comment on above: Performed By: #### C BC, BMP #### [facility] [address] [place] [id number] [place] Platelets (Bld) [#/Vol] 135 10*3/uL Low 150-450 [facility] Comment on above: Performed By: #### C BC, BMP #### [facility] [address] [place] [id number] [place] RBC (Bld) [#/Vol] 2.99 10*6/uL Low 3.60-5.00 [facility] Comment on above: Performed By: #### C BC, BMP #### [facility] [address] [place] [address] [place] WBC (Bld) [#/Vol] 7.3 10*3/uL Normal 4.5-11.0 [facility] Comment on above: Performed By: #### C BC, BMP #### [facility] [address] Electrolyteson 11-04-2021 Chloride [Moles/Vol] 106 mmol/L Normal 95-114 [facility] Comment on above: Performed By: #### C BC, BMP #### [address] CO2 [Moles/Vol] 25.2 mmol/L Normal 22.0-30.0 [facility] Comment on above: Result Comment: PERF ORMED BY: [place] [address] PATHOLOGIST L TACKER CLAIRE ANTHONY M.D. Performed By: #### C BC, BMP #### [address] Potassium [Moles/Vol] 3.7 mmol/L Normal 3.5-5.1 [facility] Comment on above: Performed By: #### C BC, BMP #### [address] Sodium [Moles/Vol] 137 mmol/L Normal 136-146 [facility] Comment on above: Performed By: #### C BC, BMP #### [address] Complete Blood Count Auto Di ffon 11-03-2021 Basophils (Bld) [#/Vol] 0.0 10*3/uL Normal 0.0-0.2 [facility] Comment on above: Result Comment: PERF ORMED BY: [place] [address] PATHOLOGIST L TACKER CLAIRE ANTHONY M.D. Performed By: #### C BC, BMP #### [address] Basophils/100 WBC (Bld) 0.1 % Normal . [facility] Comment on above: Performed By: #### C BC, BMP #### [facility] [address] Eosinophils (Bld) [#/Vol] 0.0 10*3/uL Normal 0.0-0.45 [facility] Comment on above: Performed By: #### C BC, BMP #### [facility] [address] Eosinophils/100 WBC (Bld) 0.3 % Normal . [facility] Comment on above: Performed By: #### C BC, BMP #### [address] Erythrocyte distribution width (RBC) [Ratio] 12.8 % Normal 11.9-15.3 [facility] Comment on above: Performed By: #### C BC, BMP #### [address] Hematocrit (Bld) [Volume fraction] 29.5 % Low 34.0-46.4 [facility] Comment on above: Performed By: #### C BC, BMP #### [address] Hemoglobin (Bld) [Mass/Vol] 9.9 g/dL Low 11.8-15.4 [facility] Comment on above: Performed By: #### C BC, BMP #### [address] Lymphocytes (Bld) [#/Vol] 0.5 10*3/uL Low 1.00-4.8 [facility] Comment on above: Performed By: #### C BC, BMP #### [place] [address] [place] Lymphocytes/100 WBC (Bld) 7.4 % Normal . [facility] Comment on above: Performed By: #### C BC, BMP #### [address] MCH (RBC) [Entitic mass] 30.9 pg Normal 24.7-34.3 [facility] Comment on above: Performed By: #### C BC, BMP #### [facility] [address] MCV (RBC) [Entitic vol] 92.1 fL Normal 80-100 [facility] Comment on above: Performed By: #### C BC, BMP #### [facility] [address] Mean Corpuscular HGB Conc 33.6 g/dL Normal 32.0-35.0 [facility] Comment on above: Performed By: #### C BC, BMP #### [facility] [address] [place] [address] [place] Monocytes (Bld) [#/Vol] 0.7 10*3/uL Normal 0.0-0.8 [facility] Comment on above: Performed By: #### C BC, BMP #### [address] Monocytes/100 WBC (Bld) 10.0 % Normal . [facility] Comment on above: Performed By: #### C BC, BMP #### [place] [address] [place] Neutrophils (Bld) [#/Vol] 5.8 10*3/uL Normal 1.8-7.7 [facility] Comment on above: Performed By: #### C BC, BMP #### [address] Neutrophils/100 WBC (Bld) 82.2 % Normal . [facility] Comment on above: Performed By: #### C BC, BMP #### [place] [address] [place] Nucleated RBC/100 WBC (Bld) [Ratio] 0.0 % Normal 0-0.5 [facility] Comment on above: Performed By: #### C BC, BMP #### [address] Platelet mean volume (Bld) [Entitic vol] 8.1 fL Normal 6.3-10.7 [facility] Comment on above: Performed By: #### C BC, BMP #### [address] [place] [address] [place] Platelets (Bld) [#/Vol] 153 10*3/uL Normal 150-450 [facility] Comment on above: Performed By: #### C BC, BMP #### [address] RBC (Bld) [#/Vol] 3.21 10*6/uL Low 3.60-5.00 [facility] Comment on above: Performed By: #### C BC, BMP #### [address] WBC (Bld) [#/Vol] 7.0 10*3/uL Normal 4.5-11.0 [facility] Comment on above: Performed By: #### C BC, BMP #### [address] Electrolyteson 11-03-2021 Chloride [Moles/Vol] 104 mmol/L Normal 95-114 [facility] Comment on above: Performed By: #### C BC, BMP #### [address] CO2 [Moles/Vol] 28.5 mmol/L Normal 22.0-30.0 [facility] Comment on above: Result Comment: PERF ORMED BY: [place] [address] PATHOLOGIST L TACKER CLAIRE ANTHONY M.D. Performed By: #### C BC, BMP #### [address] Potassium [Moles/Vol] 4.2 mmol/L Normal 3.5-5.1 [facility] Comment on above: Performed By: #### C BC, BMP #### [address] Sodium [Moles/Vol] 139 mmol/L Normal 136-146 [facility] Comment on above: Performed By: #### C BC, BMP #### [address] Viet 11-02-2021 L -- ---- Specimen: [id number] Received: 11/02/21 Status: GARRETT Alejo Num: [id number] Spec Type: Surgical Subm Dr: Mary Gatica Jr, DO Tissues: A Gross Only (BONE/TISSUE RT HIP) Procedures: Level 1 Gross ---- Patient Age/Sex Location Account Attending Physician ---- Isabel Stover 61/F 4N [id number] Mary Gatica Jr, DO ---- SPEC NUM: [id number] RECD: 11/02/21 STATUS: GARRETT ALEJO NUM: [id number] FRANCISCA: 11/02/[address]: Mary Gatica Jr, DO ENTERED: 11/02/[address] [facility]: SPEC TYPE: Surgical DEPT: S ORDERED: Level 1 [...] submitted for microscopic evaluation. Gross exam only. (JUAN/JS) Microscopic Description Gross examination only. [id number] ---- ---- Specimen: [id number] Received: 11/02/21 Status: GARRETT Tatianna Num: [id number] Spec Type: Surgical Subm Dr: Mary Gatica Jr, DO Tissues: A Gross Only (BONE/TISSUE RT HIP) Procedures: Level 1 Gross ---- Patient: Isabel Stover [id number] (Continued) ---- Signed (signature on file) Claire Anthony MD 11/02/21 1559 [facility] LeukoReduced RBCon LeukoReduced RBC READY [facility] Type and Screenon 11-02-2021 ABO and Rh group Nom (Bld) Blood group O Rh(D) positive [facility] Comment on above: Order Comment: Trans fuse now? N XR low pelvis w/RT x-table h ipon 11-02-2021 XR low pelvis w/RT x-table hip [facility] [place] [address] XRay Report Signed Patient: Isabel Stover MR#: [id number] : 1960 Acct:[id number] Age/Sex: 61 / F ADM Date: 11/02/21 Loc: 4N Room: [address] [place] [address] Type: REG [facility] Attending Dr: Mary [...] Shiva Stafford M.D.11/02/2021 2:41 PM Dictation Location: [place] [address] Transcribed By: [facility] 11/02/21 144 Dictated By: Shiva Stafford II, MD 11/02/21 1440 Signed By: 11/02/21 144 Normal [facility] COVID-19 [facility] [place] [place] SARS-CoV-2 (COVID-19) RNA ANGELA+probe Ql (Unsp spec) Negative Normal Negative [facility] Comment on above: Order Comment: 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 This test has not been FDA [...] is terminated or revoked sooner. PERFORMED BY: [place] [address] PATHOLOGIST L TACKER CLAIRE ANTHONY M.D. Performed By: #### C BC, BMP #### [address] Basic Metabolic Panelon 11-2 Calcium [Mass/Vol] 9.3 mg/dL Normal 8.2-10.2 [facility] Comment on above: Result Comment: PERF ORMED BY: [place] [address] PATHOLOGIST L TACKER CLAIRE ANTHONY M.D. Performed By: #### C BC, BMP #### [address] Chloride [Moles/Vol] 104 mmol/L Normal 95-114 [facility] Comment on above: Performed By: #### C BC, BMP #### [address] CO2 [Moles/Vol] 28.3 mmol/L Normal 22.0-30.0 [facility] Comment on above: Performed By: #### C BC, BMP #### [address] Creatinine [Mass/Vol] 0.61 mg/dL Normal 0.44-1.03 [facility] Comment on above: Performed By: #### C BC, BMP #### [place] [address] [place] Estimated GFR ( Damon > 60 [facility] Comment on above: Result Comment: GFR estimated reference range: According to KDOQI guidelines, <60 ml/min/1.73m2 is sufficient to diagnose a patient with chronic kidney disease. Performed By: #### C BC, BMP #### [place] [address] [place] Estimated GFR (Non- Am > 60 Normal [facility] Comment on above: Performed By: #### C BC, BMP #### [address] Glucose [Mass/Vol] 100 mg/dL Normal 70-100 [facility] Comment on above: Result Comment: [facility] Glucose Reference Range is dependent on time and content of last meal. Glucose of more than 200 mg/dL in a nonstressed, ambulatory subject supports the diagnosis of Diabetes Mellitus. ADA recommended reference range Performed By: #### C BC, BMP #### [address] Potassium [Moles/Vol] 4.7 mmol/L Normal 3.5-5.1 [facility] Comment on above: Performed By: #### C BC, BMP #### [address] Sodium [Moles/Vol] 140 mmol/L Normal 136-146 [facility] Comment on above: Performed By: #### C BC, BMP #### [address] Urea nitrogen [Mass/Vol] 17 mg/dL Normal 9-23 [facility] Comment on above: Performed By: #### C BC, BMP #### [address] Complete Blood Count Auto Di ffon 10-15-2021 Basophils (Bld) [#/Vol] 0.0 10*3/uL Normal 0.0-0.2 [facility] Comment on above: Result Comment: PERF ORMED BY: [place] [address] PATHOLOGIST L TACKER CLAIRE ANTHONY M.D. Performed By: #### C BC, BMP #### [place] [address] [place] Basophils/100 WBC (Bld) 0.4 % Normal . [facility] Comment on above: Performed By: #### C BC, BMP #### [address] Eosinophils (Bld) [#/Vol] 0.1 10*3/uL Normal 0.0-0.45 [facility] Comment on above: Performed By: #### C BC, BMP #### [facility] [address] Eosinophils/100 WBC (Bld) 2.1 % Normal . [facility] Comment on above: Performed By: #### C BC, BMP #### [facility] [address] Erythrocyte distribution width (RBC) [Ratio] 13.0 % Normal 11.9-15.3 [facility] Comment on above: Performed By: #### C BC, BMP #### [facility] [address] Hematocrit (Bld) [Volume fraction] 36.8 % Normal 34.0-46.4 [facility] Comment on above: Performed By: #### C BC, BMP #### [address] Hemoglobin (Bld) [Mass/Vol] 12.4 g/dL Normal 11.8-15.4 [facility] Comment on above: Performed By: #### C BC, BMP #### [address] Lymphocytes (Bld) [#/Vol] 0.5 10*3/uL Low 1.00-4.8 [facility] Comment on above: Performed By: #### C BC, BMP #### [place] [address] [place] Lymphocytes/100 WBC (Bld) 18.8 % Normal . [facility] Comment on above: Performed By: #### C BC, BMP #### [facility] [address] [place] [address] [place] MCH (RBC) [Entitic mass] 31.3 pg Normal 24.7-34.3 [facility] Comment on above: Performed By: #### C BC, BMP #### [address] MCV (RBC) [Entitic vol] 92.8 fL Normal 80-100 [facility] Comment on above: Performed By: #### C BC, BMP #### [facility] [address] [place] [id number] [place] Mean Corpuscular HGB Conc 33.7 g/dL Normal 32.0-35.0 [facility] Comment on above: Performed By: #### C BC, BMP #### [facility] [address] [place] [id number] [place] Monocytes (Bld) [#/Vol] 0.3 10*3/uL Normal 0.0-0.8 [facility] Comment on above: Performed By: #### C BC, BMP #### [facility] [address] [place] [id number] [place] Monocytes/100 WBC (Bld) 10.8 % Normal . [facility] Comment on above: Performed By: #### C BC, BMP #### [facility] [address] [place] [address] [place] Neutrophils (Bld) [#/Vol] 1.9 10*3/uL Normal 1.8-7.7 [facility] Comment on above: Performed By: #### C BC, BMP #### [facility] [address] [place] [id number] [place] Neutrophils/100 WBC (Bld) 67.9 % Normal . [facility] Comment on above: Performed By: #### C BC, BMP #### [facility] [address] [place] [id number] [place] Nucleated RBC/100 WBC (Bld) [Ratio] 0.1 % Normal 0-0.5 [facility] Comment on above: Performed By: #### C BC, BMP #### [facility] [address] [place] [id number] [place] Platelet mean volume (Bld) [Entitic vol] 7.4 fL Normal 6.3-10.7 [facility] Comment on above: Performed By: #### C BC, BMP #### [facility] [address] [place] [id number] [place] Platelets (Bld) [#/Vol] 198 10*3/uL Normal 150-450 [facility] Comment on above: Performed By: #### C BC, BMP #### [facility] [address] RBC (Bld) [#/Vol] 3.97 10*6/uL Normal 3.60-5.00 [facility] Comment on above: Performed By: #### C BC, BMP #### [address] WBC (Bld) [#/Vol] 2.8 10*3/uL Low 4.5-11.0 [facility] Comment on above: Performed By: #### C BC, BMP #### [place] [address] [place] Dipstick and Microscopicon 1 12-15-2020 Appearance (U) Turbid Critically abnormal Clear [facility] Comment on above: Order Comment: Name Collection Type:: Clean-Voided Midstream Performed By: #### A DDONUAPLUS #### [address] Bacteria,Urine None Seen Normal None Seen [facility] Comment on above: Order Comment: Name Collection Type:: Clean-Voided Midstream Performed By: #### A DDONUAPLUS #### [address] Bilirubin,Urine Negative Normal Negative [facility] Comment on above: Order Comment: Name Collection Type:: Clean-Voided Midstream Performed By: #### A DDONUAPLUS #### [place] [address] [place] Color (U) Yellow Normal Yellow [facility] Comment on above: Order Comment: Name Collection Type:: Clean-Voided Midstream Performed By: #### A DDONUAPLUS #### [place] [address] [place] Glucose Ql (U) Normal Normal Normal [facility] Comment on above: Order Comment: Name Collection Type:: Clean-Voided Midstream Performed By: #### A DDONUAPLUS #### [place] [address] [place] Hyaline Casts,Urine None Seen Normal 0-8 [facility] Comment on above: Order Comment: Name Collection Type:: Clean-Voided Midstream Result Comment: PERF ORMED BY: [place] [address] PATHOLOGIST L TACKER CLAIRE ANTHONY M.D. Performed By: #### A DDONUAPLUS #### [facility] [address] [place] [address] [place] Ketones Ql (U) Negative Normal Negative [facility] Comment on above: Order Comment: Name Collection Type:: Clean-Voided Midstream Performed By: #### A DDONUAPLUS #### [address] Leukocyte esterase Test strip Ql (U) 1+ High Negative [facility] Comment on above: Order Comment: Name Collection Type:: Clean-Voided Midstream Performed By: #### A DDONUAPLUS #### [place] [address] [place] Nitrite,Urine Negative Normal Negative [facility] Comment on above: Order Comment: Name Collection Type:: Clean-Voided Midstream Performed By: #### A DDONUAPLUS #### [place] [address] [place] Occult Blood,Urine Negative Normal Negative [facility] Comment on above: Order Comment: Name Collection Type:: Clean-Voided Midstream Result Comment: PERF ORMED BY: [place] [address] PATHOLOGIST L TACKER CLAIRE ANTHONY M.D. Performed By: #### A DDONUAPLUS #### [facility] [address] [place] [address] [place] pH (U) 7.5 [pH] Normal 5.0-9.0 [facility] Comment on above: Order Comment: Name Collection Type:: Clean-Voided Midstream Performed By: #### A DDONUAPLUS #### [place] [address] [place] Protein,Urine Negative Normal Negative [facility] Comment on above: Order Comment: Name Collection Type:: Clean-Voided Midstream Performed By: #### A DDONUAPLUS #### [facility] [address] [place] [address] RBC,Urine 1-2 Normal 0-4 [facility] Comment on above: Order Comment: Name Collection Type:: Clean-Voided Midstream Performed By: #### A DDONUAPLUS #### [address] Specificy [place],Urine 1.017 Normal 1.001-1.030 [facility] Comment on above: Order Comment: Name Collection Type:: Clean-Voided Midstream Performed By: #### A DDONUAPLUS #### [address] Squamous Epithelial Cell,Urine None Seen Normal 0-2 [facility] Comment on above: Order Comment: Name Collection Type:: Clean-Voided Midstream Performed By: #### A DDONUAPLUS #### [address] Urobilinogen,Urine Normal Normal Normal [facility] Comment on above: Order Comment: Name Collection Type:: Clean-Voided Midstream Performed By: #### A DDONUAPLUS #### [address] WBC,Urine 3-4 Normal 0-4 [facility] Comment on above: Order Comment: Name Collection Type:: Clean-Voided Midstream Performed By: #### A DDONUAPLUS #### [address] PST Type and Screenon 2020 ABO and Rh group Nom (Bld) Blood group O Rh(D) positive Normal [facility] Comment on above: Order Comment: Date of Surgery: [id number] # of PRBC units on hold?: 2 Result Comment: PERF ORMED BY: [place] [address] PATHOLOGIST L TACKER CLAIRE ANTHONY M.D. XR hip RT min 2V(w/wo pelvis )*on 10-15-2021 XR hip RT min 2V(w/wo pelvis)* [facility] [address] [address] XRay Report Signed Patient: Isabel Stover MR#: [id number] : 1960 Acct:[id number] Age/Sex: 61 / F ADM Date: 10/15/21 Loc: PS Room: Type: REG CLI Attending Dr: Mary Gatica Jr, DO Ordering [...] Yusef Fernandez M.D.10/15/2021 2:21 PM Dictation Location: [place] [address] Transcribed By: [facility] 10/15/21 142 Dictated By: Yusef Fernandez DO 10/15/21 1420 Signed By: 10/15/21 142 Normal [facility] XR tibia/fibula BIon 021 XR tibia/fibula BI [facility] [address] [address] XRay Report Signed Patient: Isabel Stover MR#: [id number] : 1960 Acct:[id number] Age/Sex: 61 / F ADM Date: 08/22/21 Loc: ICXD Room: Type: [facility] CLI Attending Dr: Mary Gatica Jr, DO Ordering Provider: Mary Gatica Jr, DO Date of Service: 08/22/21 XR/XR femur BI: PST ([id number]) XR/XR tibia/fibula BI: PST Copies to: Mary [...] Mckayla Rai M.D.08/22/2021 3:17 PM Dictation Location: [place] [address] Transcribed By: [facility] 08/22/211516 Dictated By: Mckayla Rai MD 08/22/211512 Signed By: 08/22/211516 Normal [facility] Basic Metabolic Panelon 10-0 Calcium [Mass/Vol] 9.1 mg/dL Normal 8.2-10.2 [facility] Comment on above: Result Comment: PERF ORMED BY: [place] [address] PATHOLOGIST L TACKER CLAIRE ANTHONY M.D. Performed By: #### C SANTANA, BMP #### [place] [id number] [place] Chloride [Moles/Vol] 102 mmol/L Normal 95-114 [facility] Comment on above: Performed By: #### C SANTANA BMP #### [facility] [address] [place] [address] [place] CO2 [Moles/Vol] 27.8 mmol/L Normal 22.0-30.0 [facility] Comment on above: Performed By: #### C SANTANA BMP #### [place] [id number] [place] Creatinine [Mass/Vol] 0.63 mg/dL Normal 0.44-1.03 [facility] Comment on above: Performed By: #### C BC, BMP #### [address] Estimated GFR ( Damon > 60 Normal [facility] Comment on above: Result Comment: GFR estimated reference range: According to KDOQI guidelines, <60 ml/min/1.73m2 is sufficient to diagnose a patient with chronic kidney disease. Performed By: #### C BC, BMP #### [address] Estimated GFR (Non- Am > 60 Normal [facility] Comment on above: Performed By: #### C BC, BMP #### [address] Glucose [Mass/Vol] 101 mg/dL High 70-100 [facility] Comment on above: Result Comment: [place] [facility] Glucose Reference Range is dependent on time and content of last meal. Glucose of more than 200 mg/dL in a nonstressed, ambulatory subject supports the diagnosis of Diabetes Mellitus. ADA recommended reference range Performed By: #### C BC, BMP #### [address] Potassium [Moles/Vol] 4.2 mmol/L Normal 3.5-5.1 [facility] Comment on above: Performed By: #### C BC, BMP #### [address] Sodium [Moles/Vol] 138 mmol/L Normal 136-146 [facility] Comment on above: Performed By: #### C BC, BMP #### [address] Urea nitrogen [Mass/Vol] 18 mg/dL Normal 9-23 [facility] Comment on above: Performed By: #### C BC, BMP #### [address] Complete Blood Count Auto Di ffon 08-20-2021 Basophils (Bld) [#/Vol] 0.0 10*3/uL Normal 0.0-0.2 [facility] Comment on above: Result Comment: PERF ORMED BY: [place] [address] PATHOLOGIST L TACKER CLAIRE ANTHONY M.D. Performed By: #### C BC, BMP #### [facility] [address] [place] [address] [place] Basophils/100 WBC (Bld) 0.1 % Normal . [facility] Comment on above: Performed By: #### C BC, BMP #### [facility] [address] [place] [address] [place] Eosinophils (Bld) [#/Vol] 0.1 10*3/uL Normal 0.0-0.45 [facility] Comment on above: Performed By: #### C BC, BMP #### [address] Eosinophils/100 WBC (Bld) 2.5 % Normal . [facility] Comment on above: Performed By: #### C BC, BMP #### [place] [address] [place] Erythrocyte distribution width (RBC) [Ratio] 13.6 % Normal 11.9-15.3 [facility] Comment on above: Performed By: #### C BC, BMP #### [address] Hematocrit (Bld) [Volume fraction] 34.5 % Normal 34.0-46.4 [facility] Comment on above: Performed By: #### C BC, BMP #### [place] [address] [place] Hemoglobin (Bld) [Mass/Vol] 11.9 g/dL Normal 11.8-15.4 [facility] Comment on above: Performed By: #### C BC, BMP #### [place] [address] [place] Lymphocytes (Bld) [#/Vol] 0.6 10*3/uL Low 1.00-4.8 [facility] Comment on above: Performed By: #### C BC, BMP #### [facility] [address] [place] [address] [place] Lymphocytes/100 WBC (Bld) 15.9 % Normal . [facility] Comment on above: Performed By: #### C BC, BMP #### [facility] [address] MCH (RBC) [Entitic mass] 31.3 pg Normal 24.7-34.3 [facility] Comment on above: Performed By: #### C BC, BMP #### [facility] [address] MCV (RBC) [Entitic vol] 90.5 fL Normal 80-100 [facility] Comment on above: Performed By: #### C BC, BMP #### [facility] [address] Mean Corpuscular HGB Conc 34.6 g/dL Normal 32.0-35.0 [facility] Comment on above: Performed By: #### C BC, BMP #### [facility] [address] [place] [address] [place] Monocytes (Bld) [#/Vol] 0.5 10*3/uL Normal 0.0-0.8 [facility] Comment on above: Performed By: #### C BC, BMP #### [facility] [address] Monocytes/100 WBC (Bld) 13.2 % Normal . [facility] Comment on above: Performed By: #### C BC, BMP #### [facility] [address] [place] [address] [place] Neutrophils (Bld) [#/Vol] 2.7 10*3/uL Normal 1.8-7.7 [facility] Comment on above: Performed By: #### C BC, BMP #### [facility] [address] [place] [address] [place] Neutrophils/100 WBC (Bld) 68.3 % Normal . [facility] Comment on above: Performed By: #### C BC, BMP #### [address] Nucleated RBC/100 WBC (Bld) [Ratio] 0.1 % Normal 0-0.5 [facility] Comment on above: Performed By: #### C SANTANA, BMP #### [address] Platelet mean volume (Bld) [Entitic vol] 7.8 fL Normal 6.3-10.7 [facility] Comment on above: Performed By: #### C SANTANA, BMP #### [address] Platelets (Bld) [#/Vol] 182 10*3/uL Normal 150-450 [facility] Comment on above: Performed By: #### C SANTANA, BMP #### [address] RBC (Bld) [#/Vol] 3.81 10*6/uL Normal 3.60-5.00 [facility] Comment on above: Performed By: #### C SANTANA, BMP #### [address] WBC (Bld) [#/Vol] 4.0 10*3/uL Low 4.5-11.0 [facility] Comment on above: Performed By: #### C SANTANA, BMP #### [place] [address] [place] Dipstick and Microscopicon 1 Appearance (U) Turbid Critically abnormal Clear [facility] Comment on above: Order Comment: Comme nt urine C S if indicated by UA Name Collection Type:: Clean-Voided Midstream Performed By: #### A DDONUAPLUS #### [place] [address] [place] Bacteria,Urine None Seen Normal None Seen [facility] Comment on above: Order Comment: Comme nt urine C S if indicated by UA Name Collection Type:: Clean-Voided Midstream Performed By: #### A DDONUAPLUS #### [place] [address] [place] Bilirubin,Urine Negative Normal Negative [facility] Comment on above: Order Comment: Comme nt urine C S if indicated by UA Name Collection Type:: Clean-Voided Midstream Performed By: #### A DDONUAPLUS #### [facility] [address] [place] [address] Color (U) Yellow Normal Yellow [facility] Comment on above: Order Comment: Comme nt urine C S if indicated by UA Name Collection Type:: Clean-Voided Midstream Performed By: #### A DDONUAPLUS #### [facility] [address] [place] [address] Glucose Ql (U) Normal Normal Normal [facility] Comment on above: Order Comment: Comme nt urine C S if indicated by UA Name Collection Type:: Clean-Voided Midstream Performed By: #### A DDONUAPLUS #### [address] Hyaline Casts,Urine 0-8 Normal 0-8 [facility] Comment on above: Order Comment: Comme nt urine C S if indicated by UA Name Collection Type:: Clean-Voided Midstream Result Comment: PERF ORMED BY: [place] [address] PATHOLOGIST L TACKER CLAIRE ANTHONY M.D. Performed By: #### A DDONUAPLUS #### [facility] [address] [place] [address] Ketones Ql (U) Negative Normal Negative [facility] Comment on above: Order Comment: Comme nt urine C S if indicated by UA Name Collection Type:: Clean-Voided Midstream Performed By: #### A DDONUAPLUS #### [facility] [address] [place] [address] Leukocyte esterase Test strip Ql (U) 3+ High Negative [facility] Comment on above: Order Comment: Comme nt urine C S if indicated by UA Name Collection Type:: Clean-Voided Midstream Performed By: #### A DDONUAPLUS #### [place] [address] [place] Nitrite,Urine Negative Normal Negative [facility] Comment on above: Order Comment: Comme nt urine C S if indicated by UA Name Collection Type:: Clean-Voided Midstream Performed By: #### A DDONUAPLUS #### [address] Occult Blood,Urine Negative Normal Negative [facility] Comment on above: Order Comment: Comme nt urine C S if indicated by UA Name Collection Type:: Clean-Voided Midstream Result Comment: PERF ORMED BY: [place] [address] PATHOLOGIST L TACKER CLAIRE ANTHONY M.D. Performed By: #### A DDONUAPLUS #### [address] pH (U) 8.5 [pH] Normal 5.0-9.0 [facility] Comment on above: Order Comment: Comme nt urine C S if indicated by UA Name Collection Type:: Clean-Voided Midstream Performed By: #### A DDONUAPLUS #### [facility] [address] [place] [address] Protein,Urine Negative Normal Negative [facility] Comment on above: Order Comment: Comme nt urine C S if indicated by UA Name Collection Type:: Clean-Voided Midstream Performed By: #### A DDONUAPLUS #### [facility] [address] [place] [address] RBC,Urine 3-4 Normal 0-4 [facility] Comment on above: Order Comment: Comme nt urine C S if indicated by UA Name Collection Type:: Clean-Voided Midstream Performed By: #### A DDONUAPLUS #### [facility] [address] [place] [address] [place] Specificy [place],Urine 1.016 Normal 1.001-1.030 [facility] Comment on above: Order Comment: Comme nt urine C S if indicated by UA Name Collection Type:: Clean-Voided Midstream Performed By: #### A DDONUAPLUS #### [place] [id number] [place] Squamous Epithelial Cell,Urine 0-1 Normal 0-2 [facility] Comment on above: Order Comment: Comme nt urine C S if indicated by UA Name Collection Type:: Clean-Voided Midstream Performed By: #### A DDONUAPLUS #### [facility] [address] Urobilinogen,Urine Normal Normal Normal [facility] Comment on above: Order Comment: Comme nt urine C S if indicated by UA Name Collection Type:: Clean-Voided Midstream Performed By: #### A DDONUAPLUS #### [facility] [address] [place] [address] WBC,Urine 20-49 High 0-4 [facility] Comment on above: Order Comment: Comme nt urine C S if indicated by UA Name Collection Type:: Clean-Voided Midstream Performed By: #### A DDONUAPLUS #### [facility] [address] [place] [address] ECG 12 lead ECGon 08-20-2021 ECG 12 lead ECG [facility] [place] [address] [place] [address] Electrocardiograph Report Signed Patient: Isabel Stover MR#: [id number] : 1960 Acct:[id number] Age/Sex: 61 / F ADM Date: 08/20/21 Loc: Room: Type: [facility] Attending Dr: Mary Gatica Jr, DO Ordering [...] When compared with ECG of 06-SEP-2020 08:27, NM interval has decreased T wave amplitude has increased in Inferior leads Confirmed by YUSEF GIRALDO DO ([id number]) on 08/20/2021 4:50:03 PM Referred By: LAURA Electronically Signed By:YUSEF GIRALDO DO Transcribed By: ARACELI Signed By Yusef Giraldo DO 08/20 1650 [facility] PST Type and Screenon 2020 ABO and Rh group Nom (Bld) Blood group O Rh(D) positive [facility] Comment on above: Order Comment: Date of Surgery: [id number] # of PRBC units on hold?: 2 Result Comment: PERF ORMED BY: [facility] [address] [place] [address] PATHOLOGIST L TACKER CLAIRE ANTHONY M.D. Urine Cultureon 08-20-2021 Bacteria identified Cx Nom (U) Comment do C S if indicated by UA ORGANISM: Staphylococcus aureus (O:STAAUR) [place] Count 30,000 Aerobic AMRELY Charge (PC45) --- SUSCEPTIBILITY -- ORGANISM: O:STAAUR [...] RESISTANT TO ALL B-LACTAM DRUGS. PERFORMED BY: [facility] [address] [place] [address] PATHOLOGIST L TACKER CLAIRE ANTHONY M.D. [facility] Comment on above: Performed By: #### C UU #### [facility] [address] [place] [address] [facility] Cult,Urineon 07-08-2021 Cult,Urine Specimen Description .URINE Special Requests NOT REPORTED Culture NO SIGNIFICANT GROWTH Report Status FINAL 07/08/2021 [facility] Comment on above: Performed By: #### U RC #### [facility] [address] [place], [place] [id number] Receiving Coordinator: Rei Jules MD [facility] [address] [place] [address] Receiving Coordinator: Jacob Campos MD CBC Auto DifferentialOrdered By: Mayra Michel on 07-07-2021 [employer] # 0.70 High [employer] [facility] Work Phone: Absolute Immature Granulocyte NOT REPORTED [facility] Work Phone: Absolute Lymph # 0.40 Low [facility] Work Phone: Absolute [place] # 0.50 [facility] Work Phone: Basophils (Bld) [#/Vol] 0.00 10*3/uL [facility] Work Phone: Basophils/100 WBC (Bld) 1 % 0 - 2 % [facility] Work Phone: Differential Type YES [facility] Work Phone: Eosinophils/100 WBC (Bld) 14 % High 0 - 5 % [facility] [employer] Work Phone: Hematocrit (Bld) [Volume fraction] 40.1 % 36 - 46 % [facility] Work Phone: Hemoglobin.gastrointes tinal spec 1 Ql (Stl) 13.8 g/dL 12.0 - 16.0 g/dL [facility] Work Phone: Immature Granulocytes NOT REPORTED 0 % [employer] Work Phone: Interpretation and review of laboratory results Abnormal [employer] Phone: Lymphocytes/100 WBC (Bld) 8 % Low 15 - 40 % [employer] Phone: MCH (RBC) [Entitic mass] 30.7 pg 26 - 34 pg [employer] Phone: MCHC (RBC) [Mass/Vol] 34.5 g/dL 31 - 37 g/dL [employer] Work Phone: MCV (RBC) [Entitic vol] 89.1 fL 80 - 100 fL [employer] Phone: Monocytes/100 WBC (Bld) 10 % High 4 - 8 % [employer] Phone: NRBC Automated NOT REPORTED per 100 WBC [employer] [facility] Work Phone: Platelet distribution width (Bld) [Ratio] 13.0 % 12.1 - 15.2 % [employer] Phone: Platelet Estimate NOT REPORTED [employer] Phone: Platelet mean volume (Bld) [Entitic vol] NOT REPORTED 6.0 - 12.0 fL [employer] Phone: Platelets (Bld) [#/Vol] 157 10*3/uL [employer] Phone: RBC (Bld) [#/Vol] 4.50 10*6/uL 4.0 - 5.2 m/uL [employer] Phone: RBC (Bld) [#/Vol] NOT REPORTED [employer] Phone: Segmented neutrophils/100 WBC (Bld) 67 % 47 - 75 % [employer] Phone: Segs Absolute 3.40 [employer] Work Phone: WBC (Bld) [#/Vol] 5.1 10*3/uL [facility] Work Phone: WBC (Bld) [#/Vol] NOT REPORTED [facility] [employer] Phone: [facility] [employer] Phone: CBC with Diffon 07-07-2021 Abs. Basophil 0.00 k/uL Normal 0.0-0.2 [facility] Comment on above: Performed By: #### C DP, CP #### [facility] [address] [place] [address] Receiving Coordinator: Jacob Campos MD Abs.Neutrophil (Seg) 3.40 k/uL Normal 2.5-7.0 [facility] Comment on above: Performed By: #### C DP, CP #### [facility] [address] [place] [address] Receiving Coordinator: Jacob Campos MD Auto Diff Performed YES Normal [facility] Comment on above: Performed By: #### C DP, CP #### [facility] [address] [place] [id number] Receiving Coordinator: Jacob Campos MD Basophils/100 WBC (Bld) 1 % Normal 0-2 [facility] Comment on above: Performed By: #### C DP, CP #### [facility] [address] [place] [phone] Receiving Coordinator: Jacob Campos MD Eosinophils (Bld) [#/Vol] 0.70 10*3/uL High 0.0-0.4 [facility] Comment on above: Performed By: #### C DP, CP #### [facility] [address] [place] [phone] Receiving Coordinator: Jacob Campos MD Eosinophils/100 WBC (Bld) 14 % High 0-5 [facility] Comment on above: Performed By: #### C DP, CP #### [facility] [address] [place], [place] [phone] Receiving Coordinator: Jacob Campos MD Erythrocyte distribution width (RBC) [Ratio] 13.0 % Normal 12.1-15.2 [facility] Comment on above: Performed By: #### C DP, CP #### [facility] [address] [place] [phone] Receiving Coordinator: Jacob Campos MD Hematocrit (Bld) [Volume fraction] 40.1 % Normal 36-46 [facility] Comment on above: Performed By: #### C DP, CP #### [facility] [address] [place] [address] Receiving Coordinator: Jacob Campos MD Hemoglobin (Bld) [Mass/Vol] 13.8 g/dL Normal 12.0-16.0 [facility] Comment on above: Performed By: #### C DP, CP #### [facility] [address] [place] [phone] Receiving Coordinator: aJcob Campos MD Lymphocytes (Bld) [#/Vol] 0.40 10*3/uL Low 1.0-4.8 [facility] Comment on above: Performed By: #### C DP, CP #### [facility] [address] [place] [address] Receiving Coordinator: Jacob Campos MD Lymphocytes/100 WBC (Bld) 8 % Low 15-40 [facility] Comment on above: Performed By: #### C DP, CP #### [facility] [address] [place] [address] Receiving Coordinator: Jacob Campos MD MCH (RBC) [Entitic mass] 30.7 pg Normal 26-34 [facility] Comment on above: Performed By: #### C DP, CP #### [facility] [address] [place] [address] Receiving Coordinator: Jacob Campos MD MCHC (RBC) [Mass/Vol] 34.5 g/dL Normal 31-37 [facility] Comment on above: Performed By: #### C DP, CP #### [facility] [address] [place] [address] Receiving Coordinator: Jacob Campos MD MCV (RBC) [Entitic vol] 89.1 fL Normal 80-100 [facility] Comment on above: Performed By: #### C DP, CP #### [facility] [address] [place] [address] Receiving Coordinator: Jacob Campos MD Monocytes (Bld) [#/Vol] 0.50 10*3/uL Normal 0.0-1.0 [facility] Comment on above: Performed By: #### C DP, CP #### [facility] [address] [place] [phone] Receiving Coordinator: Jacob Campos MD Monocytes/100 WBC (Bld) 10 % High 4-8 [facility] Comment on above: Performed By: #### C DP, CP #### [facility] [address] [place] [address] Receiving Coordinator: Jacob Campos MD Neutrophil (Seg) 67 % Normal 47-75 [facility] Comment on above: Performed By: #### C DP, CP #### [facility] [address] [place] [address] Receiving Coordinator: Jacob Campos MD Platelets (Bld) [#/Vol] 157 10*3/uL Normal 140-450 [facility] Comment on above: Performed By: #### C DP, CP #### [facility] [address] [place] [address] Receiving Coordinator: Jacob Campos MD RBC (Bld) [#/Vol] 4.50 10*6/uL Normal 4.0-5.2 [facility] Comment on above: Performed By: #### C DP, CP #### [facility] [address] [place], [place] [phone] Receiving Coordinator: Jacob Campos MD WBC (Bld) [#/Vol] 5.1 10*3/uL Normal 3.5-11.0 [facility] Comment on above: Performed By: #### C DP, CP #### [facility] [address] [place] [phone] Receiving Coordinator: Jacbo Campos MD Abs.Imm.Granulocyte NOT REPORTED Normal 0.00-0.30 [facility] Comment on above: Performed By: #### C DP, CP #### [facility] [address] [place], [place] [phone] Receiving Coordinator: Jacob Campos MD Immature Granulocyte NOT REPORTED Normal 0 [facility] Comment on above: Performed By: #### C DP, CP #### [facility] [address] [place] [phone] Receiving Coordinator: Jacob Campos MD MPV NOT REPORTED Normal 6.0-12.0 [facility] Comment on above: Performed By: #### C DP, CP #### [facility] [address] [place], [place] [phone] Receiving Coordinator: Jacob Campos MD NRBC Automated NOT REPORTED Normal [facility] Comment on above: Performed By: #### C DP, CP #### [facility] [address] [place], [place] [phone] Receiving Coordinator: Jacob Campos MD Platelet Estimate NOT REPORTED Normal [facility] Comment on above: Performed By: #### C DP, CP #### [facility] [address] [place], [place] [phone] Receiving Coordinator: Jacob Campos MD RBC morphology finding Nom (Bld) NOT REPORTED Normal [facility] Comment on above: Performed By: #### C DP, CP #### [facility] [address] [place], [place] [phone] Receiving Coordinator: Jacob Campos MD WBC Morphology NOT REPORTED Normal [facility] Comment on above: Performed By: #### C DP, CP #### [facility] [address] [place], [place] [phone] Receiving Coordinator: Jacob Campos MD Comp Metabolic Profon 2020 (cont.) Normal [facility] Comment on above: Result Comment: Aver age GFR for 60-69 years old: 85 mL/min/1.73sq m Chronic Kidney Disease: <60 mL/min/1.73sq m Kidney failure: <15 mL/min/1.73sq m eGFR calculated using average adult body mass. Additional eGFR calculator available at: http://www.Where/multiple_crcl_2012.htm Performed By: #### C MIAN, CP #### [facility] [address] [place], [place] [phone] Receiving Coordinator: Jacob Campos MD Albumin [Mass/Vol] 3.9 g/dL Normal 3.5-5.2 [facility] Comment on above: Performed By: #### C DP, CP #### [facility] [address] [place], [place] [phone] Receiving Coordinator: Jacob Campos MD Alkaline Phos 94 U/L Normal 35-104 [facility] Comment on above: Performed By: #### C DP, CP #### [facility] [address] [place], [place] [phone] Receiving Coordinator: Jacob Campos MD ALT [Catalytic activity/Vol] 31 U/L Normal 5-33 [facility] Comment on above: Performed By: #### C DP, CP #### [facility] [address] [place] [address] Receiving Coordinator: Jacob Campos MD Anion gap [Moles/Vol] 10 mmol/L Normal 9-17 [facility] Comment on above: Performed By: #### C DP, CP #### [facility] [address] [place], [place] [phone] Receiving Coordinator: Jacob Campos MD AST [Catalytic activity/Vol] 28 U/L Normal <32 [facility] Comment on above: Performed By: #### C DP, CP #### [facility] [address] [place], [place] [phone] Receiving Coordinator: Jacob Campos MD Bilirubin [Mass/Vol] 0.46 mg/dL Normal 0.30-1.20 [facility] Comment on above: Performed By: #### C DP, CP #### [facility] [address] [place], [place] [phone] Receiving Coordinator: Jacob Campos MD BUN/CRE Ratio 27 High 9-20 [facility] Comment on above: Performed By: #### C DP, CP #### [facility] [address] [place], [place] [phone] Receiving Coordinator: Jacob Campos MD Calcium [Mass/Vol] 9.7 mg/dL Normal 8.6-10.4 [facility] Comment on above: Performed By: #### C DP, CP #### [facility] [address] [place], [place] [phone] Receiving Coordinator: Jacob Campos MD Chloride [Moles/Vol] 107 mmol/L Normal 98-107 [facility] Comment on above: Performed By: #### C DP, CP #### [facility] [address] [place], [place] [phone] Receiving Coordinator: Jacob Campos MD CO2 [Moles/Vol] 25 mmol/L Normal 20-31 [facility] Comment on above: Performed By: #### C DP, CP #### [facility] [address] [place], [place] [phone] Receiving Coordinator: Jacob Campos MD Creatinine [Mass/Vol] 0.60 mg/dL Normal 0.50-0.90 [facility] Comment on above: Performed By: #### C DP, CP #### [facility] [address] [place], [place] [phone] Receiving Coordinator: Jacob Campos MD GFR, Amer >60 Normal >60 [facility] Comment on above: Performed By: #### C DP, CP #### [facility] [address] [place] [address] Receiving Coordinator: Jacob Campos MD GFR,non Amer >60 Normal >60 [facility] Comment on above: Performed By: #### C DP, CP #### [facility] [address] [place], [place] [phone] Receiving Coordinator: Jacob Campos MD Glucose [Mass/Vol] 122 mg/dL High 70-99 [facility] Comment on above: Performed By: #### C DP, CP #### [facility] [address] [place] [address] Receiving Coordinator: Jacob Campos MD Potassium [Moles/Vol] 3.8 mmol/L Normal 3.7-5.3 [facility] Comment on above: Performed By: #### C DP, CP #### [facility] [address] [place], [place] [phone] Receiving Coordinator: Jacob Campos MD Protein [Mass/Vol] 6.9 g/dL Normal 6.4-8.3 [facility] Comment on above: Performed By: #### C DP, CP #### [facility] [address] [place] [address] Receiving Coordinator: Jacob Campos MD Sodium [Moles/Vol] 142 mmol/L Normal 135-144 [facility] Comment on above: Performed By: #### C DP, CP #### [facility] [address] [place], [place] [phone] Receiving Coordinator: Jacob Campos MD Urea nitrogen [Mass/Vol] 16 mg/dL Normal 8-23 [facility] Comment on above: Performed By: #### C DP, CP #### [facility] [address] [place], [place] [phone] Receiving Coordinator: Jacob Campos MD Albumin/Glob Ratio NOT REPORTED Normal 1.0-2.5 [facility] Comment on above: Performed By: #### C DP, CP #### [facility] [address] [place], [place] [phone] Receiving Coordinator: Jacob Campos MD Staging: NOT REPORTED Normal [facility] Comment on above: Performed By: #### C DP, CP #### [facility] [address] [place] [address] Receiving Coordinator: Jacob Campos MD Comprehensive Metabolic Pane lOrdered By: Mayra Michel on 07-07-2021 Albumin [Mass/Vol] 3.9 g/dL 3.5 - 5.2 g/dL [employer] Phone: Albumin/Globulin Ratio NOT REPORTED [employer] Phone: ALP (Bld) [Catalytic activity/Vol] 94 U/L 35 - 104 U/L [employer] Phone: ALT [Catalytic activity/Vol] 31 U/L 5 - 33 U/L [employer] Phone: Anion gap [Moles/Vol] 10 mmol/L 9 - 17 mmol/L [employer] Phone: AST [Catalytic activity/Vol] 28 U/L <32 [employer] Phone: Bilirubin [Mass/Vol] 0.46 mg/dL 0.30 - 1.20 mg/dL [employer] Phone: Calcium [Mass/Vol] 9.7 mg/dL 8.6 - 10. 4 mg/dL [employer] Phone: Chloride [Moles/Vol] 107 mmol/L 98 - 10 7 mmol/L [employer] Phone: CO2 [Moles/Vol] 25 mmol/L 20 - 31 mmol/L [employer] Phone: Creatinine [Mass/Vol] 0.6 mg/dL 0.50 - 0.90 mg/dL [employer] Phone: Free PSA/Total PSA [Mass fraction] 6.9 g/dL 6.4 - 8.3 g/dL [employer] Phone: GFR >60 >60 mL/min [employer] Phone: GFR Non- >60 >60 mL/min [employer] Phone: GFR/1.73 sq M.predicted MDRD (S/P/Bld) [Vol rate/Area] [employer] Phone: Comment on above: Average GFR for 60-6 9 years old: 85 mL/min/1.73sq m Chronic Kidney Disease: <60 mL/min/1.73sq m Kidney failure: <15 mL/min/1.73sq m eGFR calculated using average adult body mass. Additional eGFR calculator available at: http://www.[employer]/multiple_crcl_2012.htm GFR/1.73 sq M.predicted MDRD (S/P/Bld) [Vol rate/Area] NOT REPORTED [employer] Phone: Glucose [Mass/Vol] 122 mg/dL High 70 - 99 mg/dL [employer] Phone: Interpretation and review of laboratory results Abnormal [employer] Phone: Potassium [Moles/Vol] 3.8 mmol/L 3.7 - 5.3 mmol/L [employer] Phone: Sodium [Moles/Vol] 142 mmol/L 135 - 144 mmol/L [facility] [employer] Work Phone: Urea nitrogen (BldV) [Mass/Vol] 16 mg/dL 8 - 23 mg/dL [facility] [employer] Work Phone: Urea nitrogen/Creatinine (Bld) [Mass ratio] 27 High [facility] [employer] Work Phone: [facility] [employer] Work Phone: Microscopic UrinalysisOrdere d By: Mayra Servinitrov on 07-07-2021 - [facility] [employer] Work Phone: Amorphous, UA NOT REPORTED None [facility] Work Phone: Bacteria, UA 2+ Abnormal None [facility] Work Phone: Casts UA NOT REPORTED /LPF [facility] Work Phone: Crystals, UA NOT REPORTED None /HPF [facility] Work Phone: Epithelial Cells UA 5 TO 10 /HPF [facility] Work Phone: Interpretation and review of laboratory results Abnormal [facility] Work Phone: Mucus, UA 1+ Abnormal None [facility] Work Phone: Other Observations UA NOT REPORTED NOT REQ. M [facility] Work Phone: RBC, UA 5 TO 10 [facility] Work Phone: Renal Epithelial, UA NOT REPORTED 0 /HPF [facility] Work Phone: Trichomonas, UA NOT REPORTED None [facility] Work Phone: WBC, UA 2 TO 5 0 /HPF [facility] Work Phone: Yeast, UA NOT REPORTED None [facility] Work Phone: [facility] Work Phone: UrinalysisOrdered By: Olamide ruelas Marilu on 07-07-2021 Bilirubin Urine Negative NEGATIVE [facility] Work Phone: Color, UA YELLOW YELLOW [facility] Work Phone: Glucose, Ur Negative NEGATIVE [facility] [employer] Work Phone: Interpretation and review of laboratory results Abnormal [employer] Work Phone: Ketones Ql (U) Negative NEGATIVE [facility] [facility] Work Phone: Leukocyte esterase Test strip Ql (U) 1+ Abnormal NEGATIVE [facility] [employer] Work Phone: Nitrite, Urine Negative NEGATIVE [facility] Work Phone: pH, UA 6.0 [facility] [employer] Work Phone: Protein, UA TRACE Abnormal NEGATIVE [facility] [employer] Work Phone: Specific [place], UA 1.020 [facility] [employer] Work Phone: Turbidity UA CLEAR CLEAR [facility] Work Phone: Urinalysis Comments [facility] [employer] Phone: Urine Hgb TRACE Abnormal NEGATIVE [employer] Phone: Urobilinogen, Urine Normal Normal [facility] [employer] Phone: [employer] Phone: Urinalysis, Routineon 2020 Bilirubin, SemiQt,Ur Negative Normal NEG [facility] Comment on above: Performed By: #### U MICAO, UA #### [facility] [address] [place] [address] Receiving Coordinator: Jacob Campos MD Blood, Urine TRACE Abnormal NEG [facility] Comment on above: Performed By: #### U MICAO, UA #### [facility] [address] [place] [address] Receiving Coordinator: Jacob Campos MD Clarity (U) CLEAR Normal CLEAR [facility] Comment on above: Performed By: #### U MICAO, UA #### [facility] [address] [place], [place] [id number] Receiving Coordinator: Jacob Campos MD Color (U) YELLOW Normal YEL [facility] Comment on above: Performed By: #### U MICAO, UA #### [facility] [address] [place], [place] [id number] Receiving Coordinator: Jacob Campos MD Comment Normal [facility] Comment on above: Performed By: #### U MICAO, UA #### [facility] [address] [place], [place] [id number] Receiving Coordinator: Jacob Campos MD Glucose Ql (U) Negative Normal NEG [facility] Comment on above: Performed By: #### U MICAO, UA #### [facility] [address] [place], [place] [phone] Receiving Coordinator: Jacob Campos MD Ketones Ql (U) Negative Normal NEG [facility] Comment on above: Performed By: #### U MICAO, UA #### [facility] [address] [place], [place] [id number] Receiving Coordinator: Jacob Campos MD Leukocyte esterase Test strip Ql (U) 1+ Abnormal NEG [facility] Comment on above: Performed By: #### U MICAO, UA #### [facility] [address] [place], [place] 5[address] Receiving Coordinator: Jacob Campos MD Nitrite,Ur Negative Normal NEG [facility] Comment on above: Performed By: #### U MICAO, UA #### [facility] [address] [place], [place] 9845090 Receiving Coordinator: Jacob Campos MD PH,Ur 6.0 Normal 5.0-8.0 [facility] Comment on above: Performed By: #### U MICAO, UA #### [facility] [address] [place] [address] Receiving Coordinator: Jacob Campos MD Protein Ql (U) TRACE Abnormal NEG [facility] Comment on above: Performed By: #### U EULALIAO, UA #### [facility] [address] [place] [address] Receiving Coordinator: Jacob Campos MD Spec. [place],Ur 1.020 Normal 1.005-1.030 [facility] Comment on above: Performed By: #### U EULALIAO, UA #### [facility] [address] [place], [place] [phone] Receiving Coordinator: Jacob Campos MD Urobilinogen,Ur Normal Normal NORM [facility] Comment on above: Performed By: #### U EULALIAO, UA #### [facility] [address] [place] [address] Receiving Coordinator: Jacob Campos MD Urinalysis,Microon 1 ----- Normal [facility] Comment on above: Performed By: #### U RICH, UA #### [facility] [address] [place] [address] Receiving Coordinator: Jacob Campos MD Bacteria 2+ Abnormal NONE [facility] Comment on above: Performed By: #### U EULALIAO, UA #### [facility] [address] [place] [address] Receiving Coordinator: Jacob Campos MD Epithelial cells LM Ql (Urine sed) 5 TO 10 Normal [facility] Comment on above: Performed By: #### U EULALIAO, UA #### [facility] [address] [place], [place] 1577490 Receiving Coordinator: Jacob Campos MD Mucus Strands 1+ Abnormal NONE [facility] Comment on above: Performed By: #### U EULALIAO, UA #### [facility] [address] [place] [address] Receiving Coordinator: Jacob Campos MD Urine RBC's 5 TO 10 Normal 0-2 [facility] Comment on above: Performed By: #### U MICAO, UA #### [facility] [address] [place] [address] Receiving Coordinator: Jacob Campos MD Urine WBC's 2 TO 5 Normal 0 [facility] Comment on above: Performed By: #### U MICAO, UA #### [facility] [address] [place] [address] Receiving Coordinator: Jacob Campos MD Amorphous sediment LM Ql (Urine sed) NOT REPORTED Normal NONE [facility] Comment on above: Performed By: #### U MICAO, UA #### [facility] [address] [place], [place] [phone] Receiving Coordinator: Jacob Campos MD Casts NOT REPORTED Normal [facility] Comment on above: Performed By: #### U MICAO, UA #### [facility] [address] [place], [place] [phone] Receiving Coordinator: Jacob Campos MD Crystals LM Nom (Urine sed) NOT REPORTED Normal [facility] Comment on above: Performed By: #### U MICAO, UA #### [facility] [address] [place], [place] 2044290 Receiving Coordinator: Jacob Campos MD Epithelial, Renal NOT REPORTED Normal 0 [facility] Comment on above: Performed By: #### U MICAO, UA #### [facility] [address] [place], [place] 7905390 Receiving Coordinator: Jacob Campos MD Other Observations NOT REPORTED Normal NREQ [facility] Comment on above: Performed By: #### U MICAO, UA #### [facility] [address] [place], [place] 85168[address] Receiving Coordinator: Jacob Campos MD Trichomonas NOT REPORTED Normal NONE [facility] Comment on above: Performed By: #### U RICH, UA #### [facility] [address] [place] [address] Receiving Coordinator: Jacob Campos MD Yeast NOT REPORTED Normal NONE [facility] Comment on above: Performed By: #### U RICH, UA #### [facility] [address] [place] [address] Receiving Coordinator: Jacob Campos MD XR hand RT min 3V*on 021 XR hand RT min 3V* [facility] [place] [address] [place] [address] XRay Report Signed Patient: Isabel Stover MR#: [id number] : 1960 Acct:[id number] Age/Sex: 60 / F ADM Date: 03/28/21 Loc: [facility] Room: Type: [facility] Attending Dr: Sona Hurst MD Ordering [...] Mckayla Rai M.D.03/28/2021 1:26 PM Dictation Location: [place] [address] Transcribed By: JULIO 03/28/21 132 Dictated By: Mckayla Rai MD 03/28/21 1321 Signed By: 03/28/21 1326 [facility] BIOAVAILABLE TESTOSTERONE Susie CORRAL 11-29-2019 Albumin [Mass/Vol] 4.3 g/dL Normal 3.6-5.1 [facility] Comment on above: Result Comment: Age and Gender Specific Reference Interval Applied Interpretive Information: Total Testosterone Reference Interval (ng/dL) Premenopausal 9 - 55 Postmenopausal 5 - 32 Bioavailable Testosterone (ng/dL) Postmenopausal 1.5 - 9.4 Free Testosterone Reference Interval (pg/mL) Postmenopausal 0.6 - 3.8 This test was developed and its performance characteristics determined by [facility] ([facility]). It has not been cleared or approved by the U.S. Food and Drug Administration (FDA). The FDA has determined that such clearance or approval is not necessary. This test is used for clinical purposes and should not be regarded as investigational or for research. [facility] is qualified to perform high complexity testing under the Clinical Laboratory Improvement Amendments (CLIA). Test performed at [facility] [address] [place] [address], [address], [address] [place] [address] Dip Painter: Adi Barksdale M.D. CLIA Number [id number] CAP Accreditation Number [id number] ------- Pathology [facility] [address] [place] [address] CLIA No. [id number] CAP Accreditation No. [id number] Dip Painter: Isiah Burr M.D. Performed By: #### 1 000, 4500, 4510, 4520, 06117, 5000, 13410, 53130 #### [facility] Unless Otherwise Noted [address] [place] [address] / COLA #0538/CLIA # [id number] SEX HORM BINDING GLOBULIN 56.3 nmol/L Normal 17.3-125.0 [facility] Comment on above: Performed By: #### 1 000, 4500, 4510, 4520, 97275, 5000, 29801, 14433 #### [facility] [place] Unless Otherwise Noted [address] [address] / COLA #4724/CLIA # [id number] TESTOSTERONE BIO FEMALE 2.9 ng/dL Normal 1.5-9.4 [facility] and Diabetes [facility] Comment on above: Performed By: #### 1 000, 4500, 4510, 4520, 74758, 5000, 64420, 82413 #### [facility] Unless Otherwise Noted [address] [address] / COLA #4724/CLIA # [id number] TESTOSTERONE FREE FEMALE 1.3 pg/mL Normal 0.6-3.8 [facility] Comment on above: Performed By: #### 1 000, 4500, 4510, 4520, 71473, 5000, 15741, 45462 #### [facility] and [facility] Unless Otherwise Noted [address] [address] / COLA #4724/CLIA # [id number] TESTOSTERONE, ULTRASENSITIVE 10 ng/dL Normal 9-55 [facility] Comment on above: Performed By: #### 1 000, 4500, 4510, 4520, 75926, 5000, 85940, 65206 #### [facility] Unless Otherwise Noted [address] [address] / COLA #4724/CLIA # [id number] ADRENOCORTICOTROPIC HORMon 0 - ADRENOCORTICOTROPIC HORM 18.1 PG/ML Normal 7.2-63.3 [facility] Comment on above: Result Comment: Reference range established for normal adult patients, morning blood draw (7-10 AM). Certain synthetic ACTH fragments may interfere with this assay. Test performed at [facility] [address] [place] [address] CLIA Number [id number] [facility] Accreditation Number [id number] ------- Performed By: #### 1 000, 4500, 4510, 4520, 52065, 5000, 98614, 00258 #### [facility] Unless Otherwise Noted [address] [place] [address] / COLA #4724/CLIA # [id number] IGF-1on 11-27-2019 IGF-1 151 NG/ML Normal 43-187 [facility] Comment on above: Result Comment: Test performed at [facility] [address] [place] [address] CLIA Number [id number] [facility] Accreditation Number [id number] ------- Performed By: #### 1 000, 4500, 4510, 4520, 92239, 5000, 54766, 82121 #### [facility] Unless Otherwise Noted [address] [place] [address] / COLA #4724/CLIA # [id number] CORTISOL [place] 11-26-2019 CORTISOL AM 8.6 UG/DL Normal 4.5-22.7 [facility] Comment on above: Performed By: #### 1 000, 4500, 4510, 4520, 44596, 5000, 55666, 33722 #### [facility] Unless Otherwise Noted [address] [place] [address] / COLA #4724/CLIA # [id number] FSHon 11-26-2019 FSH 26.30 mlU/mL Normal [facility] Comment on above: Result Comment: REFE RENCE RANGES FOR FEMALES: OVULATING FEMALE: FOLLICULAR PHASE 1.98-11.6 PEAK 5.14-23.4 LUTEAL PHASE 1.38-9.58 POSTMENOPAUSAL FEMALE 21.5-131 Performed By: #### 4 530, 4540, 4550, 4577 #### [facility] Unless Otherwise Noted [address] [place] [address] / COLA #4724/CLIA # [id number] LHon 11-26-2019 LH 23.00 mIU/ml Normal [facility] Comment on above: Result Comment: REFE RENCE RANGES FOR FEMALE: OVULATING FEMALE: FOLLICULAR PHASE 2.58-12.1 PEAK 27.3-96.9 LUTEAL PHASE 0.83-15.5 POSTMENOPAUSAL FEMALE 13.1-86.5 Performed By: #### 4 530, 4540, 4550, 4577 #### [facility] Unless Otherwise Noted [address] [place] [address] / COLA #4724/CLIA # [id number] PROLACTINon 11-26-2019 PROLACTIN 17.3 ng/ml Normal 2.1-47.6 [facility] Comment on above: Result Comment: IVELISSE ENOPAUSAL FEMALE 2.1 - 47.6 POSTMENOPAUSAL FEMALE 0.0 - 41.4 Performed By: #### 1 000, 4500, 4510, 4520, 88443, 5000, 68596, 31811 #### [facility] Unless Otherwise Noted [address] [address] / COLA #4724/CLIA # [id number] CBC W/AUTO DIFFon 11-25-2019 ABS BASOPHILS 0.0 X10E9/L Normal 0-0.9 [facility] Comment on above: Result Comment: Perf ormed at [facility] [address] [facility] [address] Performed By: #### 1 000, 4500, 4510, 4520, 53670, 5000, 72604, 76290 #### [facility] Unless Otherwise Noted [address] [place] [address] / COLA #4724/CLIA # [id number] ABS NEUTROPHILS 2.6 X10E9/L Normal 1.5-6.6 [facility] Comment on above: Performed By: #### 1 000, 4500, 4510, 4520, 61165, 5000, 97060, 76396 #### [facility] Unless Otherwise Noted [address] [place] [address] / COLA #4724/CLIA # [id number] Basophils/100 WBC (Bld) 0.6 % Normal [facility] Comment on above: Performed By: #### 1 000, 4500, 4510, 4520, 71391, 5000, 35015, 13180 #### [facility] Unless Otherwise Noted [address] [address] / COLA #4724/CLIA # [id number] Eosinophils (Bld) [#/Vol] 0.2 10*3/uL Normal 0.0-0.4 [facility] Comment on above: Performed By: #### 1 000, 4500, 4510, 4520, 22145, 5000, 16837, 43108 #### [facility] Unless Otherwise Noted [address] [facility] [address] [place] [address] / COLA #4724/CLIA # [id number] Eosinophils/100 WBC (Bld) 3.1 % Normal [facility] Comment on above: Performed By: #### 1 000, 4500, 4510, 4520, 95924, 5000, 32168, 08150 #### [facility] Unless Otherwise Noted [address] [address] / COLA #4724/CLIA # [id number] Erythrocyte distribution width (RBC) [Ratio] 13.3 % Normal 11.5-14.7 [facility] Comment on above: Performed By: #### 1 000, 4500, 4510, 4520, 86763, 5000, 35585, 08310 #### [facility] Unless Otherwise Noted [address] [address] / COLA #4724/CLIA # [id number] Hematocrit (Bld) [Volume fraction] 39.4 % Normal 35-47 [facility] Comment on above: Performed By: #### 1 000, 4500, 4510, 4520, 20817, 5000, 65399, 61193 #### [facility] Unless Otherwise Noted [address] [address] / COLA #4724/CLIA # [id number] Hemoglobin (Bld) [Mass/Vol] 13.3 g/dL Normal 11.7-16.0 [facility] Comment on above: Performed By: #### 1 000, 4500, 4510, 4520, 37583, 5000, 41166, 70226 #### [facility] Unless Otherwise Noted [address] [address] / COLA #4724/CLIA # [id number] Lymphocytes (Bld) [#/Vol] 1.8 10*3/uL Normal 1.0-3.5 [facility] Comment on above: Performed By: #### 1 000, 4500, 4510, 4520, 65674, 5000, 43136, 71468 #### [facility] and [facility] Unless Otherwise Noted [address] [address] / COLA #4724/CLIA # [id number] Lymphocytes/100 WBC (Bld) 35.0 % Normal [facility] Comment on above: Performed By: #### 1 000, 4500, 4510, 4520, 09830, 5000, 36884, 71802 #### [facility] Unless Otherwise Noted [address] [address] / COLA #4724/CLIA # [id number] MCH (RBC) [Entitic mass] 31.2 pg Normal 26-33.5 [facility] Comment on above: Performed By: #### 1 000, 4500, 4510, 4520, 93229, 5000, 73781, 79858 #### [facility] Unless Otherwise Noted [address] [address] / COLA #4724/CLIA # [id number] MCHC (RBC) [Mass/Vol] 33.7 g/dL Normal 32-36 [facility] Comment on above: Performed By: #### 1 000, 4500, 4510, 4520, 18857, 5000, 98018, 74418 #### [facility] and [facility] Unless Otherwise Noted [address] [address] / COLA #4724/CLIA # [id number] MCV (RBC) [Entitic vol] 93 fL Normal 81-100 [facility] Comment on above: Performed By: #### 1 000, 4500, 4510, 4520, 25611, 5000, 51322, 62473 #### [facility] Unless Otherwise Noted [address] / COLA #4724/CLIA # [id number] Monocytes (Bld) [#/Vol] 0.5 10*3/uL Normal 0-0.9 [facility] Comment on above: Performed By: #### 1 000, 4500, 4510, 4520, 13220, 5000, 71804, 23679 #### [facility] and [facility] Unless Otherwise Noted [address] [address] / COLA #4724/CLIA # [id number] Monocytes/100 WBC (Bld) 10.0 % Normal [facility] Comment on above: Performed By: #### 1 000, 4500, 4510, 4520, 51138, 5000, 98517, 87778 #### [facility] and [facility] Unless Otherwise Noted [address] / COLA #4724/CLIA # [id number] Neutrophils/100 WBC (Bld) 51.3 % Normal [facility] Comment on above: Performed By: #### 1 000, 4500, 4510, 4520, 04464, 5000, 76983, 84895 #### [facility] Unless Otherwise Noted [address] [address] / COLA #4724/CLIA # [id number] Platelet mean volume (Bld) [Entitic vol] 8.8 fL Normal 7-12 [facility] Comment on above: Performed By: #### 1 000, 4500, 4510, 4520, 42908, 5000, 80384, 22655 #### [facility] Unless Otherwise Noted [address] [place] [address] / COLA #4724/CLIA # [id number] Platelets (Bld) [#/Vol] 225 10*3/uL Normal 150-450 [facility] Comment on above: Performed By: #### 1 000, 4500, 4510, 4520, 16479, 5000, 38672, 84392 #### [facility] Unless Otherwise Noted [address] [place] [address] / COLA #4724/CLIA # [id number] RBC (Bld) [#/Vol] 4.25 X10E12/L Normal 3.80-5.20 [facility] Comment on above: Performed By: #### 1 000, 4500, 4510, 4520, 10593, 5000, 85483, 70778 #### [facility] Unless Otherwise Noted [address] [place] [address] / COLA #4724/CLIA # [id number] WBC (Bld) [#/Vol] 5.1 10*3/uL Normal 4.8-10.8 [facility] Comment on above: Performed By: #### 1 000, 4500, 4510, 4520, 64681, 5000, 09318, 95643 #### [facility] Unless Otherwise Noted [address] [place] [address] / COLA #4724/CLIA # [id number] [facility] 11-25-2019 Albumin [Mass/Vol] 4.2 g/dL Normal 3.5-5.0 [facility] Comment on above: Performed By: #### 1 000, 4500, 4510, 4520, 67355, 5000, 33366, 83096 #### [facility] Unless Otherwise Noted [address] [address] / COLA #4724/CLIA # [id number] ALP [Catalytic activity/Vol] 103.0 U/L Normal 38.0-126.0 [facility] Comment on above: Performed By: #### 1 000, 4500, 4510, 4520, 00116, 5000, 88455, 24363 #### [facility] Unless Otherwise Noted [address] [address] / COLA #4724/CLIA # [id number] ALT [Catalytic activity/Vol] 62.0 U/L Normal 13.0-69.0 [facility] Comment on above: Performed By: #### 1 000, 4500, 4510, 4520, 24920, 5000, 82643, 89610 #### [facility] Unless Otherwise Noted [address] [address] / COLA #4724/CLIA # [id number] Anion gap [Moles/Vol] 4.0 mmol/L Low 10.0-15.0 [facility] Comment on above: Performed By: #### 1 000, 4500, 4510, 4520, 96865, 5000, 53147, 50921 #### [facility] Unless Otherwise Noted [address] [address] / COLA #4724/CLIA # [id number] AST [Catalytic activity/Vol] 30.0 U/L Normal 15.0-46.0 [facility] Comment on above: Performed By: #### 1 000, 4500, 4510, 4520, 07595, 5000, 23513, 61577 #### [facility] Unless Otherwise Noted [address] [address] / COLA #4724/CLIA # [id number] Bilirubin Ql (U) 0.50 mg/dL Normal 0.20-1.30 [facility] Comment on above: Performed By: #### 1 000, 4500, 4510, 4520, 36044, 5000, 65628, 90470 #### [facility] Unless Otherwise Noted [address] [address] / COLA #4724/CLIA # [id number] BUN/Cre Ratio 32.9 Ratio High 7.0-27.0 [facility] Comment on above: Performed By: #### 1 000, 4500, 4510, 4520, 11320, 5000, 40243, 81062 #### [facility] Unless Otherwise Noted [address] [address] / COLA #4724/CLIA # [id number] Calcium [Mass/Vol] 9.5 mg/dL Normal 8.4-10.2 [facility] Comment on above: Performed By: #### 1 000, 4500, 4510, 4520, 05776, 5000, 91835, 37930 #### [facility] Unless Otherwise Noted [address] [address] / COLA #4724/CLIA # [id number] Chloride [Moles/Vol] 102.0 mmol/L Normal 98.0-107.0 [facility] Comment on above: Performed By: #### 1 000, 4500, 4510, 4520, 25135, 5000, 50091, 79730 #### [facility] Unless Otherwise Noted [address] [facility] [address] [place] [address] / COLA #4724/CLIA # [id number] CO2 [Moles/Vol] 31.0 mmol/L High 22.0-30.0 [facility] [place] Comment on above: Performed By: #### 1 000, 4500, 4510, 4520, 31042, 5000, 72658, 57046 #### [facility] Unless Otherwise Noted [address] [place] [address] [address] [place] [address] / COLA #4724/CLIA # [id number] Creatinine [Mass/Vol] 0.7 mg/dL Normal 0.5-1.0 [facility] Comment on above: Performed By: #### 1 000, 4500, 4510, 4520, 67554, 5000, 73623, 18410 #### [facility] Unless Otherwise Noted [address] [place] [address] [address] [place] [address] / COLA #4724/CLIA # [id number] GFR/1.73 sq M predicted among blacks MDRD (S/P/Bld) [Vol rate/Area] 110.1 ml/m1.73 Normal [facility] Comment on above: Performed By: #### 1 000, 4500, 4510, 4520, 29101, 5000, 10923, 23363 #### [facility] Unless Otherwise Noted [address] [facility] 100 [place] [address] / COLA #4724/CLIA # [id number] GFR/1.73 sq M predicted among non-blacks MDRD (S/P/Bld) [Vol rate/Area] 91.0 ml/m1.73 Normal [facility] Comment on above: Performed By: #### 1 000, 4500, 4510, 4520, 70579, 5000, 95416, 50542 #### [facility] Unless Otherwise Noted [address] [place] [address] / COLA #4724/CLIA # [id number] GFR/1.73 sq M predicted among non-blacks MDRD (S/P/Bld) [Vol rate/Area] 96.2 ml/m1.73 Normal [facility] Comment on above: Performed By: #### 1 000, 4500, 4510, 4520, 83654, 5000, 77371, 87426 #### [facility] Unless Otherwise Noted [address] [place] [address] / COLA #4724/CLIA # [id number] Glucose [Mass/Vol] 109.0 mg/dL High 74.0-106.0 [facility] Comment on above: Performed By: #### 1 000, 4500, 4510, 4520, 21447, 5000, 95202, 30324 #### [facility] Unless Otherwise Noted [address] [place] [address] / COLA #4724/CLIA # [id number] Potassium [Moles/Vol] 4.3 mmol/L Normal 3.5-5.1 End [facility] Comment on above: Performed By: #### 1 000, 4500, 4510, 4520, 88553, 5000, 87278, 25151 #### [facility] Unless Otherwise Noted [address] [place] [address] / COLA #4724/CLIA # [id number] Protein [Mass/Vol] 6.8 g/dL Normal [facility]8.2 [facility] on above: Performed By: #### 1 000, 4500, 4510, 4520, 60239, 5000, 66649, 13331 #### [facility] Unless Otherwise Noted [address] [address] / COLA #4724/CLIA # [id number] Sodium [Moles/Vol] 137.0 mmol/L Normal 137.0-145.0 [facility] Comment on above: Performed By: #### 1 000, 4500, 4510, 4520, 94430, 5000, 37896, 31138 #### [facility] Unless Otherwise Noted [address] [address] / COLA #4724/CLIA # [id number] Urea nitrogen [Mass/Vol] 23.0 mg/dL High 7.0-17.0 [facility] Comment on above: Performed By: #### 1 000, 4500, 4510, 4520, 45935, 5000, 92471, 27016 #### [facility] Unless Otherwise Noted [address] [address] / COLA #4724/CLIA # [id number] FT3on 11-25-2019 FT3 4.39 pg/mL Normal 2.71-6.16 [facility] Comment on above: Performed By: #### 1 000, 4500, 4510, 4520, 25308, 5000, 07533, 85694 #### [facility] Unless Otherwise Noted [address] [address] / COLA #4724/CLIA # [id number] FT4on 11-25-2019 Free T4 [Mass/Vol] 0.95 ng/dL Normal 0.64-1.79 [facility] Comment on above: Performed By: #### 1 000, 4500, 4510, 4520, 17402, 5000, 68083, 30307 #### [facility] Unless Otherwise Noted [address] [place] [address] / COLA #4724/CLIA # [id number] TSHon 11-25-2019 TSH Qn 0.35 uIU/ml Low 0.47-4.68 [facility] Comment on above: Performed By: #### 1 000, 4500, 4510, 4520, 20586, 5000, 28139, 12230 #### [facility] Unless Otherwise Noted [address] [place] [id number] / COLA #4724/CLIA # [id number] Vital Signs Date Time Vital Sign Value Performing Clinician Facility 11-26-2024 09:20-0500 Body height 167.64 cm [facility] 11-26-2024 09:20-0500 Body mass index (BMI) [Ratio] 25.4 kg/m2 [facility] 11-26-2024 09:20-0500 Body weight 71.66 kg [facility] 11-26-2024 09:20-0500 Diastolic blood pressure 91 mm[Hg] [facility] 11-26-2024 09:20-0500 Heart rate 97 /min [facility] 11-26-2024 09:20-0500 Respiratory rate 12 /min [facility] 11-26-2024 09:20-0500 Systolic blood pressure 159 mm[Hg] [facility] 08-05-2024 11:44-0400 Body height 167.6 cm Henry Ramos MD Work Phone: [facility] 08-05-2024 11:44-0400 Body mass index (BMI) [Ratio] 23.88 kg/m2 Henry Ramos MD Work Phone: [facility] 08-05-2024 11:44-0400 Body temperature 99 [degF] Henry Ramos MD Work Phone: [facility] 08-05-2024 11:44-0400 Body weight 67.1 kg Henry Ramos MD Work Phone: [facility] 08-05-2024 11:44-0400 Diastolic blood pressure 75 mm[Hg] Henry Ramos MD Work Phone: [facility] 08-05-2024 11:44-0400 Heart rate 81 /min Henry Ramos MD Work Phone: [facility] 08-05-2024 11:44-0400 SaO2% (BldA) [Mass fraction] 97 % Henry Ramos MD Work Phone: [facility] 08-05-2024 11:44-0400 Systolic blood pressure 141 mm[Hg] Henry Ramos MD Work Phone: [facility] 06-29-2024 11:36-0400 Body height 167.64 cm [facility] 06-29-2024 11:36-0400 Body mass index (BMI) [Ratio] 22.6 kg/m2 [facility] 06-29-2024 11:36-0400 Body weight 63.67 kg [facility] 06-29-2024 11:36-0400 Diastolic blood pressure 81 mm[Hg] [facility] 06-29-2024 11:36-0400 Heart rate 86 /min [facility] 06-29-2024 11:36-0400 Respiratory rate 12 /min [facility] 06-29-2024 11:36-0400 Systolic blood pressure 135 mm[Hg] [facility] 05-04-2024 13:01-0400 Body height 167.64 cm [facility] 05-04-2024 13:01-0400 Body mass index (BMI) [Ratio] 22.6 kg/m2 [facility] 05-04-2024 13:01-0400 Body weight 63.5 kg [facility] 05-04-2024 13:01-0400 Diastolic blood pressure 78 mm[Hg] [facility] 05-04-2024 13:01-0400 Heart rate 88 /min [facility] 05-04-2024 13:01-0400 SaO2% (BldA) [Mass fraction] 98 % [facility] 05-04-2024 13:01-0400 Systolic blood pressure 136 mm[Hg] [facility] 09-29-2023 10:33-0500 Body height 167.6 cm South Saba [employer] Work Phone: [facility] 09-29-2023 10:33-0500 Body weight 62.14 kg South [employer] Work Phone: [facility] 09-12-2023 10:00-0400 Body height 167.64 cm Roland Ball Other [employer] [facility] [employer] Other 09-12-2023 10:00-0400 Body mass index (BMI) [Ratio] 23.05 kg/m2 Roland Ball Other [employer] Other 09-12-2023 10:00-0400 Body weight 64.77 kg Roland Ball Other [employer] Other 09-12-2023 10:00-0400 Diastolic blood pressure 75 mm[Hg] Roland Ball Other [employer] Other 09-12-2023 10:00-0400 Respiratory rate 12 /min Roland Ball Other [employer] Other 09-12-2023 10:00-0400 Systolic blood pressure 131 mm[Hg] Roland Ball Other [employer] Other 08-29-2023 10:55-0400 Body height 167.6 cm Elder Angelia [employer] Work Phone: [facility] 08-29-2023 10:55-0400 Body temperature 98.01 [degF] Elder Angelia [employer] Work Phone: [facility] 08-29-2023 10:55-0400 Body weight 66.68 kg Elder Angelia [employer] Work Phone: [facility] 08-29-2023 10:55-0400 Diastolic blood pressure 78 mm[Hg] Elder Angelia [employer] Work Phone: [facility] 08-29-2023 10:55-0400 Heart rate 82 /min Eldre Angelia [employer] Work Phone: [facility] 08-29-2023 10:55-0400 SaO2% (BldA) [Mass fraction] 99 % Elder Angelia [employer] Work Phone: [facility] 08-29-2023 10:55-0400 Systolic blood pressure 163 mm[Hg] Elder Angelia [employer] Work Phone: [facility] 08-29-2023 10:03-0400 Body temperature 98.01 [degF] Heidi Hatfield MD Work Phone: [facility] 08-29-2023 10:03-0400 Body weight 66.68 kg Heidi Hatfield MD Work Phone: [facility] 08-29-2023 10:03-0400 Diastolic blood pressure 77 mm[Hg] Heidi Hatfield MD Work Phone: [facility] 08-29-2023 10:03-0400 Heart rate 82 /min Heidi Hatfield MD Work Phone: [facility] 08-29-2023 10:03-0400 Respiratory rate 16 /min Heidi Hatfield MD Work Phone: [facility] 08-29-2023 10:03-0400 SaO2% (BldA) [Mass fraction] 99 % Heidi Hatfield MD Work Phone: [facility] 08-29-2023 10:03-0400 Systolic blood pressure 157 mm[Hg] Heidi Hatfield MD Work Phone: [facility] 07-04-2023 09:18-0400 Body height 167.6 cm South Jayant DO Work Phone: [facility] 07-04-2023 09:18-0400 Body temperature 97.59 [degF] South Jayant DO Work Phone: [facility] 07-04-2023 09:18-0400 Body weight 66.5 kg South Jayant DO Work Phone: [facility] 07-04-2023 09:18-0400 Diastolic blood pressure 68 mm[Hg] South Jayant DO Work Phone: [facility] 07-04-2023 09:18-0400 Heart rate 73 /min South Jayant DO Work Phone: [facility] 07-04-2023 09:18-0400 SaO2% (BldA) [Mass fraction] 100 % South Jayant DO Work Phone: [facility] 07-04-2023 09:18-0400 Systolic blood pressure 139 mm[Hg] South Jayant DO Work Phone: [facility] 06-27-2023 10:30-0400 Body temperature 97.39 [degF] Heidi Hatfield MD Work Phone: [facility] 06-27-2023 10:30-0400 Body weight 69.4 kg Heidi Hatfield MD Work Phone: [facility] 06-27-2023 10:30-0400 Diastolic blood pressure 76 mm[Hg] Heidi Hatfield MD Work Phone: [facility] 06-27-2023 10:30-0400 Heart rate 70 /min Heidi Hatfield MD Work Phone: [facility] 06-27-2023 10:30-0400 Respiratory rate 16 /min Heidi Hatfield MD Work Phone: [facility] 06-27-2023 10:30-0400 SaO2% (BldA) [Mass fraction] 97 % Heidi Hatfield MD Work Phone: [facility] 06-27-2023 10:30-0400 Systolic blood pressure 141 mm[Hg] Heidi Hatfield MD Work Phone: [facility] 05-23-2023 09:45-0400 Body height 167.64 cm Roland Ball Other [employer] Other 05-23-2023 09:45-0400 Body mass index (BMI) [Ratio] 24.79 kg/m2 Roland Ball Other [employer] Other 05-23-2023 09:45-0400 Body weight 69.67 kg Roland Ball Other [employer] Other 05-23-2023 09:45-0400 Diastolic blood pressure 78 mm[Hg] Roland Ball Other [employer] Other 05-23-2023 09:45-0400 Respiratory rate 12 /min Roland Ball Other [employer] Other 05-23-2023 09:45-0400 Systolic blood pressure 158 mm[Hg] Roland Ball Other [employer] Other 04-23-2023 13:30-0400 Body height 167.64 cm Roland Ball Other [employer] Other 04-23-2023 13:30-0400 Body mass index (BMI) [Ratio] 24.34 kg/m2 Roland Ball Other [employer] Other 04-23-2023 13:30-0400 Body weight 68.4 kg Roland Ball Other [employer] Other 04-23-2023 13:30-0400 Diastolic blood pressure 74 mm[Hg] Roland Ball Other [employer] Other 04-23-2023 13:30-0400 Respiratory rate 12 /min Roland Ball Other [employer] Other 04-23-2023 13:30-0400 Systolic blood pressure 131 mm[Hg] Roland Ball Other [employer] Other 03-05-2023 09:30-0400 Body height 167.6 cm Cherelle Pack [employer] Work Phone: [facility] 03-05-2023 09:30-0400 Body weight 70.22 kg Cherelle Pack [employer] Work Phone: [facility] 03-05-2023 09:30-0400 Diastolic blood pressure 90 mm[Hg] Cherelle Pack [employer] Work Phone: [facility] 03-05-2023 09:30-0400 Heart rate 85 /min Cherelle Pack [employer] Work Phone: [facility] 03-05-2023 09:30-0400 Systolic blood pressure 152 mm[Hg] Cherelle Pack [employer] Work Phone: [facility] 01-24-2023 08:45-0500 Body height 167.64 cm Roland Ball Other [employer] Other 01-24-2023 08:45-0500 Body mass index (BMI) [Ratio] 24.05 kg/m2 Roland Ball Other [employer] Other 01-24-2023 08:45-0500 Body temperature 96.7 [degF] Roland Ball Other [employer] Other 01-24-2023 08:45-0500 Body weight 67.59 kg Roland Ball Other [employer] Other 01-24-2023 08:45-0500 Diastolic blood pressure 93 mm[Hg] Roland Ball Other [employer] Other 01-24-2023 08:45-0500 Systolic blood pressure 165 mm[Hg] Roland Ball Other [employer] Other 01-20-2023 13:35-0500 Body height 167.64 cm Olya Gann Other [employer] Other 01-20-2023 13:35-0500 Body mass index (BMI) [Ratio] 24.53 kg/m2 Olya Alonzoault Other [employer] Other 01-20-2023 13:35-0500 Body temperature 97.3 [degF] Olya Sanjuanita Other [employer] Other 01-20-2023 13:35-0500 Body weight 68.95 kg Olya Alonzoault Other [employer] Other 01-20-2023 13:35-0500 Respiratory rate 18 /min Olya Alonzoault Other [employer] Other 01-20-2023 13:35-0500 SaO2% (BldA) [Mass fraction] 95 % Olya Sanjuanita Other [facility] [employer] Other 01-03-2023 15:27-0500 Body height 167.6 cm Henry Ramos MD Work Phone: [facility] 01-03-2023 15:27-0500 Body temperature 97.81 [degF] Henry Ramos MD Work Phone: [facility] 01-03-2023 15:27-0500 Body weight 71.17 kg Henry Ramos MD Work Phone: [facility] 01-03-2023 15:27-0500 Diastolic blood pressure 87 mm[Hg] Henry Ramos MD Work Phone: [facility] 01-03-2023 15:27-0500 Heart rate 95 /min Henry Ramos MD Work Phone: [facility] 01-03-2023 15:27-0500 SaO2% (BldA) [Mass fraction] 99 % Henry Ramos MD Work Phone: [facility] 01-03-2023 15:27-0500 Systolic blood pressure 141 mm[Hg] Henry Ramos MD Work Phone: [facility] 09-26-2022 12:30-0500 Diastolic blood pressure 89 mm[Hg] Leila Alamo MD Work Phone: [facility] 09-26-2022 12:30-0500 Heart rate 79 /min Leila Alamo MD Work Phone: [facility] 09-26-2022 12:30-0500 Respiratory rate 18 /min Leila Alamo MD Work Phone: [facility] 09-26-2022 12:30-0500 SaO2% (BldA) [Mass fraction] 98 % Leila Alamo MD Work Phone: [facility] 09-26-2022 12:30-0500 Systolic blood pressure 140 mm[Hg] Leila Alamo MD Work Phone: [facility] 09-26-2022 11:25-0500 Body height 167.6 cm Leila Alamo MD Work Phone: [facility] 09-26-2022 11:25-0500 Body temperature 98.2 [degF] Leila Alamo MD Work Phone: [facility] 09-26-2022 11:25-0500 Body weight 68.04 kg Leila Alamo MD Work Phone: [facility] 08-07-2022 15:28-0400 Body weight 68.95 kg Henry Ramos MD Work Phone: [facility] 08-07-2022 15:28-0400 Diastolic blood pressure 91 mm[Hg] Henry Ramos MD Work Phone: [facility] 08-07-2022 15:28-0400 SaO2% (BldA) [Mass fraction] 98 % Henry Ramos MD Work Phone: [facility] 08-07-2022 15:28-0400 Systolic blood pressure 132 mm[Hg] Henry Ramos MD Work Phone: [facility] 03-13-2022 14:38-0400 Body height 169.5 cm Henry Ramos MD Work Phone: [facility] 03-13-2022 14:38-0400 Body temperature 96.8 [degF] Henry Ramos MD Work Phone: [facility] 03-13-2022 14:38-0400 Body weight 66.32 kg Henry Ramos MD Work Phone: [facility] 03-13-2022 14:38-0400 Diastolic blood pressure 96 mm[Hg] Henry Ramos MD Work Phone: [facility] 03-13-2022 14:38-0400 Heart rate 85 /min Henry Ramos MD Work Phone: [facility] 03-13-2022 14:38-0400 Respiratory rate 16 /min Henry Ramos MD Work Phone: [facility] 03-13-2022 14:38-0400 SaO2% (BldA) [Mass fraction] 98 % Henry Ramos MD Work Phone: [facility] 03-13-2022 14:38-0400 Systolic blood pressure 151 mm[Hg] Henry Ramos MD Work Phone: [facility] 07-07-2021 14:50-0400 Diastolic blood pressure 101 mm[Hg] Mayra Michel MD Work Phone: [employer] Work Phone: 07-07-2021 14:50-0400 Heart rate 70 /min Mayra Michel MD Work Phone: [facility] Work Phone: 07-07-2021 14:50-0400 Respiratory rate 13 /min Mayra Michel MD Work Phone: [facility] Work Phone: 07-07-2021 14:50-0400 SaO2% (BldA) [Mass fraction] 99 % Myara Michel MD Work Phone: [facility] Work Phone: 07-07-2021 14:50-0400 Systolic blood pressure 133 mm[Hg] Mayra Michel MD Work Phone: [facility] Work Phone: 07-07-2021 13:25-0400 Body height 167.6 cm Mayra Michel MD Work Phone: [facility] Work Phone: 07-07-2021 13:25-0400 Body mass index (BMI) [Ratio] 24.19 kg/m2 Mayra Michel MD Work Phone: [facility] Work Phone: 07-07-2021 13:25-0400 Body temperature 98.6 [degF] Mayra Michel MD Work Phone: [facility] Work Phone: 07-07-2021 13:25-0400 Body weight 67.99 kg Mayra Michel MD Work Phone: [facility] Work Phone: 11-25-2019 16:19-0500 Body weight 70.4 Kg [facility] Comment on above: Performed By: #### 1000, 4500, 4510, 452 0, 67122, 5000, 03674, 49989 #### [facility] Unless Otherwise Noted [address] [place] [address] / COLA #4724/CLIA # [id number] Encounters Encounter Date Encounter Type Care Provider Facility Start: 11-26-2024 End: 11-26-2024 ambulatory [facility] Work Phone: Start: 11-26-2024 End: 11-26-2024 Patient encounter procedure [facility] Physician [facility] Work Phone: Start: 11-01-2024 Non-patient / Non-visit [facility] Physician [facility] Work Phone: Start: 11-01-2024 End: 11-01-2024 Bamboo flowsheet Dyan SOSA Work Phone: [facility] Start: 11-01-2024 End: 11-01-2024 Bamboo flowsheet Dyan SOSA Work Phone: [facility] Start: 11-01-2024 End: 11-01-2024 Office outpatient visit 25 minutes Dyan SOSA Work Phone: [facility] Comment on above: History of right hip replacement (Primary Dx); Acute pain of right hip; Lumbar radiculopathy, right Start: 11-01-2024 End: 11-01-2024 ambulatory DYAN ROBB Not Available Start: 10-07-2024 End: 10-07-2024 Bamboo flowsheet Leigh Valenzuela [employer] Work Phone: [facility] Start: 10-07-2024 End: 10-07-2024 Bamboo flowsheet Leigh Philippe Feltlyndon [employer] Work Phone: [facility] Start: 10-07-2024 End: 10-07-2024 ambulatory LEIGH VALENZUELA Not Available Start: 10-07-2024 End: 10-07-2024 Office outpatient visit 15 minutes Leigh Valenzuela [employer] Work Phone: [facility] Comment on above: Seborrheic keratosis (Primary Dx); Melanocytic nevus of trunk Start: 09-15-2024 Non-patient / Non-visit [facility] Physician [facility] Work Phone: Start: 08-19-2024 End: 08-19-2024 Telemedicine consultation with patient Melody Mena [employer] Work Phone: Gynecology Oncology Start: 08-19-2024 End: 08-19-2024 ambulatory MELODY MENA Facility:[facility] Comment on above: NO SHOW (Primary Dx) Start: 08-18-2024 End: 08-18-2024 Telephone encounter Ernesto Chacko [employer] Work Phone: Gynecology Oncology Comment on above: Patient Update Start: 08-05-2024 End: 08-05-2024 ambulatory Henry Ramos MD Work Phone: [facility]cology Comment on above: Vaginal bleeding (Pr imary Dx); Screening for vaginal cancer; History of endometrial cancer; Radiation proctitis Start: 08-05-2024 End: 08-05-2024 Patient encounter procedure Henry Ramos MD Work Phone: [facility] Start: 08-04-2024 End: 08-04-2024 ambulatory Henry Ramos MD Work Phone: [facility]cology Oncology Comment on above: Spotting on karl ole Start: 06-29-2024 End: 06-29-2024 ambulatory [facility] Work Phone: Start: 06-29-2024 End: 06-29-2024 Patient encounter procedure [facility] Physician [facility] Work Phone: Start: 06-25-2024 Non-patient / Non-visit [facility] Physician [facility] Work Phone: Start: 05-19-2024 Non-patient / Non-visit [facility] Phys[facility] Work Phone: Start: 05-12-2024 End: 05-12-2024 ambulatory MARY LAU STEPJOHANA Not Available Start: 05-04-2024 End: 05-04-2024 Patient encounter procedure [facility] Work Phone: Start: 05-03-2024 Non-patient / Non-visit [facility] Physician [facility] Work Phone: Start: 03-26-2024 End: 03-26-2024 ambulatory MARY LAU STEPJOHANA Not Available Start: 03-05-2024 End: 03-05-2024 ambulatory MARY LAU STEPJOHANA Not Available Start: 02-13-2024 End: 02-13-2024 ambulatory MARY LAU STEPJOHANA Not Available Start: 12-17-2023 End: 12-17-2023 ambulatory Roland Serrano Other [employer] Other Start: 12-17-2023 Telephone encounter Roland VOGT [facility] Start: 10-23-2023 End: 10-23-2023 ambulatory Roland Serrano Other [employer] Other Start: 10-23-2023 Telephone encounter Roland VOGT [facility] Start: 09-29-2023 End: 09-29-2023 ambulatory ROLAND SERRANO Facility:[facility] Start: 09-29-2023 End: 09-29-2023 Patient encounter procedure South Saba DO Work Phone: Colorectal Surgery Comment on above: Radiation proctitis (Primary Dx); Endometrial cancer (HCC) Start: 09-21-2023 End: 09-21-2023 ambulatory Roland Serrano Other [employer] Other Start: 09-21-2023 Telephone encounter Roland Serrano [facility] Start: 09-18-2023 End: 09-18-2023 ambulatory Roland Serrano Other [employer] Other Start: 09-18-2023 Telephone encounter Roland Serrano [facility] Start: 09-17-2023 End: 09-17-2023 ambulatory Roland Serrano Other [employer] Other Start: 09-17-2023 Telephone encounter Roland Serrano [facility] Start: 09-15-2023 End: 09-15-2023 ambulatory Roland Serrano Other [employer] Other Start: 09-15-2023 Telephone encounter Roland Serrano [facility] Start: 09-14-2023 End: 09-14-2023 ambulatory Roland Serrano Other [employer] Other Start: 09-14-2023 Telephone encounter Roland Serrano [facility] Start: 09-12-2023 End: 09-12-2023 ambulatory Roland Serrano Other [employer] Other Start: 09-12-2023 Encounter for genera l adult medical examination without abnormal findings Roland Serrano [facility] Start: 09-12-2023 Periodic preventive med est patient 40-64yrs Roland Serrano [facility] Start: 09-10-2023 End: 09-10-2023 ambulatory Roland Serrano Other [employer] Other Start: 09-10-2023 Telephone encounter [facility] Start: 09-03-2023 End: 09-03-2023 ambulatory Roland Serrano Other [employer] Other Start: 09-03-2023 Telephone encounter [facility] Start: 09-02-2023 Telephone encounter [facility] Start: 09-02-2023 End: 09-02-2023 ambulatory ROLAND SERRANO [facility] [employer] Other Start: 09-01-2023 End: 09-01-2023 ambulatory Roland Serrano Other [employer] Other Start: 09-01-2023 Telephone encounter [facility] Start: 08-29-2023 End: 08-29-2023 ambulatory ROLAND SERRANO Facility:[facility] Start: 08-29-2023 End: 08-29-2023 Preprocedural examination done Elder Galan APRN.[facility] Work Phone: [facility] Work Phone: Start: 08-29-2023 End: 08-29-2023 ambulatory ROLAND SERRANO Facility:[facility] Start: 08-29-2023 Encounter for other preprocedural examination ELDER GALAN [facility] Start: 08-29-2023 End: 08-29-2023 Patient encounter procedure Pulm Fct Lab Main [address] [facility] Comment on above: Dyspnea and respirat ory abnormalities (Primary Dx); Calcified nodule; Iron deficiency anemia due to chronic blood loss Pre-op evaluation (P rimary Dx) Start: 08-29-2023 End: 08-29-2023 ambulatory Pulm Fct Lab Main 8 Pulmonary Medicine Comment on above: Spirometry Start: 08-29-2023 End: 08-29-2023 Subsequent hospital visit by physician Xr Chest Main A21 Radiology Comment on above: Dyspnea, unspecified type [R06.00] Start: 08-26-2023 Orders Only Heidi Hatfield MD Work Phone: Respiratory [place] Comment on above: ILD (interstitial lamont ng disease) (HCC) (Primary Dx) Start: 08-22-2023 ambulatory South Rendon nte DO Work Phone: [facility] Start: 08-22-2023 Patient encounter procedure South Saba DO Work Phone: Colorectal Surgery Comment on above: Pre op appointment Start: 08-22-2023 End: 08-22-2023 Subsequent hospital visit by physician [facility] ([facility]) Work Phone: [facility] Radiology CT Scan Comment on above: Interstitial pulmona ry disease (HCC) [J84.9] Start: 08-04-2023 End: 08-04-2023 ambulatory Roland Serrano Other [employer] Other Start: 08-04-2023 Office outpatient vi sit 15 minutes Roland Serrano [facility] Start: 07-22-2023 ambulatory South Rendon nte DO Work Phone: Colorectal Surgery Start: 07-22-2023 Telephone encounter South Saba DO Work Phone: Colorectal Surgery Comment on above: Patient Update Start: 07-08-2023 End: 07-08-2023 ambulatory Roland Serrano Other [employer] Other Start: 07-08-2023 Telephone encounter Roland Serrano [facility] Start: 07-04-2023 ambulatory South Rendon nte DO Work Phone: Colorectal Surgery Start: 07-04-2023 End: 07-04-2023 Patient encounter procedure South Saba DO Work Phone: Colorectal Surgery Comment on above: Endometrial cancer ( HCC) (Primary Dx); Radiation proctitis Start: 06-27-2023 End: 06-27-2023 ambulatory Pulm Fct Lab Main 9 Pulmonary Medicine Comment on above: Spirometry Start: 06-27-2023 End: 06-27-2023 Patient encounter procedure Pulm Fct Lab Main [address] [facility] Comment on above: Interstitial pulmona ry disease (HCC) (Primary Dx); Other secondary pulmonary hypertension (HCC) Start: 05-26-2023 ambulatory Henry perales MD Work Phone: Gynecology Oncology Comment on above: Procitis Start: 05-23-2023 End: 05-23-2023 ambulatory Roland Serrano Other [employer] Other Start: 05-23-2023 Office outpatient vi sit 15 minutes Roland Serrano [facility] Start: 05-13-2023 End: 05-13-2023 ambulatory Roland Serrano Other [employer] Other Start: 05-13-2023 Telephone encounter Roland Serrano TORIE [facility] Start: 04-23-2023 End: 04-23-2023 ambulatory Roland Serrano Other [employer] Other Start: 04-23-2023 Patient encounter procedure Roland Serrano [facility] Start: 03-25-2023 End: 03-25-2023 ambulatory Roland Serrano Other [employer] Other Start: 03-25-2023 Telephone encounter Roland VOGT G [facility] Start: 03-21-2023 Telephone encounter Roland VOGT G [facility] Start: 03-21-2023 End: 03-22-[address] ROLAND SERRANO [facility] [employer] Other Start: 03-11-2023 End: 03-11-2023 ambulatory Roland Serrano Other [employer] Other Start: 03-11-2023 Telephone encounter Roland VOGT G [facility] Start: 03-10-2023 End: 03-11-[address] ROLAND SERRANO [facility] [employer] Other Start: 03-10-2023 Telephone encounter Roland Serrano TORIE G [facility] Start: 03-05-2023 End: 03-05-2023 Patient encounter procedure Cherelle Pack [employer] Work Phone: Gastroenterology Comment on above: Rectal bleeding (Vivi nicho Dx) Start: 01-24-2023 End: 01-24-2023 ambulatory Roland Serrano Other [employer] Other Start: 01-24-2023 Office outpatient vi sit 15 minutes Roland Serrano [facility] Start: 01-23-2023 End: 01-23-2023 ambulatory Roland Serrano Other [employer] Other Start: 01-23-2023 Telephone encounter Roland Serrano [facility] Start: 01-20-2023 Office outpatient vi sit 15 minutes Olya Gann [facility] Start: 01-20-2023 End: 01-20-[address] ROLAND SERRANO [facility] [employer] Other Start: 01-07-2023 End: 01-07-2023 ambulatory Roland Serrano Other [employer] Other Start: 01-07-2023 Telephone encounter Roland Serrano [facility] Start: 01-03-2023 End: 01-04-2023 ambulatory Henry Ramos MD Work Phone: Gynecology Oncology Comment on above: Recurrent carcinoma of endometrium (HCC) (Primary Dx); Radiation proctitis; Blood per rectum Start: 01-03-2023 End: 01-04-2023 Patient encounter procedure Henry Ramos MD Work Phone: [facility] Start: 12-25-2022 Telephone encounter Aretha [...] examination without abnormal findings DR ROLAND SERRANO [facility] Start: 09-04-2022 End: 09-05-[address] ROLAND SERRANO Facility:[facility] Start: 09-04-2022 End: 09-05-2022 Encounter for general adult medical examination without abnormal findings DR ROLNAD SERRANO Facility:[facility] Start: 08-29-2022 Adult health examination Roland Serrano Other [employer] Other Start: 08-29-2022 Encounter for genera l adult medical examination without abnormal findings Roland Serrano Other [employer] Other Start: 08-29-2022 Pre-procedure evaluation check Roland Serrano Other [employer] Other Start: 08-07-2022 End: 08-07-2022 ambulatory Henry Ramos MD Work Phone: Gynecology Oncology Comment on above: Recurrent carcinoma of endometrium (HCC) (Primary Dx); Radiation proctitis; Foreshortening of vagina; Endometrial cancer (HCC); Vaginal atrophy; Rectal bleeding Start: 08-07-2022 End: 08-07-2022 Patient encounter procedure Henry Ramos MD Work Phone: [facility] Start: 06-12-2022 End: 06-12-2022 ambulatory SALOMON JACOME Facility:[facility] Start: 03-13-2022 End: 03-13-2022 ambulatory Henry Ramos MD Work Phone: Gynecology Oncology Comment on above: Recurrent carcinoma of endometrium (HCC) (Primary Dx); Vaginal atrophy; Foreshortening of vagina Start: 03-13-2022 End: 03-13-2022 Patient encounter procedure Henry Ramos MD Work Phone: [facility] Start: 12-13-2021 End: 12-13-2021 Subsequent hospital visit by physician Arrival Time Radiology Work Phone: Radiology Pet CT Comment on above: Malignant neoplasm o f endometrium (HCC) [C54.1] Start: 11-21-2021 End: 11-22-2021 Emergency department patient visit [facility] Start: 07-07-2021 End: 07-07-2021 Emergency department patient visit [facility] Start: 07-07-2021 End: 07-07-2021 Emergency department patient visit Mayra Michel MD Work Phone: [facility] ED Comment on above: Dizziness (Primary D x); Dehydration Procedures Date Procedure Procedure Detail Performing Clinician Start: 11-01-2024 Radex hip unilateral with pelvis 2-3 views Dyan Robb PA Work Phone: Start: 08-05-2024 Iadna human papillom avirus high-risk types Ernesto Chacko [employer] Work Phone: Start: 08-05-2024 Unlisted surgical pa thology procedure Ernesto Chacko [employer] Work Phone: Start: 08-05-2024 Microscopic observat ion [Identifier] in Cervix by Cyto stain Leigh Valenzuela [employer] Work Phone: Start: 05-04-2024 Quick Strep (POC) Start: 09-29-2023 Follow-up visit Follow Up [place] Start: 09-02-2023 Antibody screen MELODY MENA Comment on above: Order Comment: Speci men Type: BLOOD SPECIMENOrdering Facility: [facility] Address: [address] [place] [address] Performed By: #### T SCR ####CC [facility] BLOOD BANKCLIA [id number] [facility] [id number] [place] [address] [place] Start: 08-29-2023 Antibody screen MELODY MENA Comment on above: Order Comment: Speci men Type: BLOOD SPECIMENOrdering Facility: [facility] Address: [address] [place] [address] Performed By: #### T SCR ####CC MAIN BLOOD BANKCLIA [id number] [facility] [id number] [place] [id number] [place] Start: 08-29-2023 Spmtry w/vc expirato [...] dx w /collj spec when pfrmd Ernesto Modlo [employer] Work Phone: Start: 09-26-2022 Colonoscopy Leila Alamo MD Work Phone: Start: 12-13-2021 Ct abdomen & pelvis w/contrast material Ernesto Modlo [employer] Work Phone: Start: 12-13-2021 Ct thorax w/contrast material Ernesto Modlo [employer] Work Phone: Start: 11-02-2021 Antibody screen Comment on above: Order Comment: Trans fuse now? N Result Comment: PERF ORMED BY: [facility] [address] [place] [address] PATHOLOGIST L TACKER CLAIRE ANTHONY M.D. Start: 10-15-2021 Antibody screen Comment on above: Order Comment: Date of Surgery: [id number] # of PRBC units on hold?: 2 Result Comment: PERF ORMED BY: [facility] [address] [place] [address] PATHOLOGIST L TACKER CLAIRE ANTHONY M.D. Start: 09-20-2021 Adult depression scr eening assessment Henry Ramos MD Work Phone: Start: 08-20-2021 Antibody screen Comment on above: Order Comment: Date of Surgery: [id number] # of PRBC units on hold?: 2 Result Comment: PERF ORMED BY: [facility] [address] [place] [address] PATHOLOGIST L TACKER CLAIRE ANTHONY M.D. Start: 07-07-2021 Urinalysis microscopic only Mayra Michel MD Work Phone: Start: 07-07-2021 Urnls dip stick/tabl et rgnt auto w/o microscopy Mayra Michel MD Work Phone: Start: 07-07-2021 Comprehensive metabo lic panel Mayra Michel MD Work Phone: Start: 10-18-2019 Mammography Leigh pozo Mashery Work Phone: Start: 06-11-2019 General examination of patient Roland Serrano Other Start: 06-11-2019 Screening for malign ant neoplasm of colon Roland Serrano Other Start: 05-05-2019 Microscopic observat ion [Identifier] in Cervix by Cyto stain Leigh Valenzuela [employer] Work Phone: Screening for malign ant neoplasm of breast Roland Serrano Other Plan of Treatment Date Care Activity Detail Author Start: 09-26-2032 Screening for malign ant neoplasm of colon [facility] Start: 08-05-2029 Screening for malign ant neoplasm of cervix [facility] Start: 08-05-2027 Screening for malign ant neoplasm of cervix Pap Smear [facility] Start: 08-29-2026 [facility] Start: 07-04-2026 DIABETES SCREEN DIABETES SCREEN [facility] Start: 07-04-2026 Diabetes Screening Diabetes Screenin [facility] Start: 10-06-2025 End: 10-06-2025 Patient encounter procedure 10/06/2025 11:05 AM EST Office Visit [facility] [address] [place] [address] Leigh Valenzuela APRN-[employer]INE[employer] [address] [place] [address] [facility] Start: 08-05-2025 Screening for malign ant neoplasm of cervix Cervical Cancer Screening [facility] Start: 12-02-2024 End: 12-02-2024 Patient encounter procedure 12/02/2024 10:30 AM EST Office Visit [facility] [address] [place] [address] Dyan Robb PA [address] [facility] [address] [place] [address] [facility] Start: 11-25-2024 End: 11-25-2024 Follow-up encounter 11/25/2024 1:50 PM EST Visit (SP) Office Gynecology Oncology [address] [place] [address] Henry Ramos MD [address] [place] [address] 4 MONTH FOLLOW UP Gynecology Oncology Comment on above: 4 MONTH FOLLOW UP Start: 11-03-2024 End: 11-03-2024 Patient encounter procedure 11/03/2024 1:00 PM EST Office Visit [facility] [address] [place] [address] Dyan Robb PA [address] [facility] [address] [place] [address] [facility] Start: 11-01-2024 End: 11-01-2025 MR Lumbar spine WO contrast MR lumbar spine wo contrast Imaging Routine Lumbar radiculopathy, right Expected: 11/01/2024 (Approximate), Expires: 11/01/2025 [facility] Comment on above: Expected: 11/01/2024 (Approximate), Expires: 11/01/2025 Start: 11-01-2024 End: 11-01-2024 Patient encounter procedure [facility] Comment on above: History of right hip replacement (Primary Dx); Acute pain of right hip Start: 09-09-2024 End: 09-09-2024 Follow-up encounter Gynecology Oncology Comment on above: 1 Year/Annual Follow Up follow up; needs pap Start: 08-19-2024 End: 08-19-2024 ambulatory 08/19/2024 3:00 PM EDT [facility] Gynecology Oncology [address] [place] [address] Melody Mena APRN.[employer] [address] [place], [place] [id number] TELEVISIT Gynecology Oncology Comment on above: TELEVISIT Start: 08-05-2024 End: 08-05-2024 Follow-up encounter 08/05/2024 11:10 AM EDT Visit (SP) Office Gynecology Oncology [address] [place] [address] Henry Ramos MD [address] [place], [place] [id number] Follow up Gynecology Oncology Comment on above: Follow up Start: 07-18-2024 Covid-19 Vaccine ( season) Covid-19 Vaccine ( season) [facility] Start: 07-18-2024 Covid-19 Vaccine ( season) Covid-19 Vaccine ( season) [facility] Start: 07-18-2024 Influenza vaccination Influenza Vacc ine (#1) [facility] Start: 09-26-2023 Colonoscopy COLONOSCOPY [facility] Start: 09-26-2023 COLORECTAL CANCER SCREENING COLORECTAL CANCER SCREENING [facility] Start: 09-26-2023 Screening for malign ant neoplasm of colon [facility] Start: 08-26-2023 End: 09-24-2024 SPIROMETRY BASELINE ONLY SPIROMETRY BASELINE ONLY PFT Routine ILD (interstitial lung disease) (HCC) Expected: 08/26/2023, Expires: 09/24/2024 [facility] Work Phone: Comment on above: Expected: 08/26/2023 , Expires: 09/24/2024 Start: 07-22-2023 End: 09-21-2023 CBC W Auto Differential panel - Blood CBC + DIFF Lab Routine Radiation proctitis Expected: 07/22/2023, Expires: 09/21/2023 [facility] Work Phone: Comment on above: Expected: 07/22/2023 , Expires: 09/21/2023 Start: 07-22-2023 End: 09-21-2023 Comprehensive metabolic 2000 panel - Serum or Plasma COMP METABOLIC PANEL Lab Routine Radiation proctitis Expected: 07/22/2023 (Approximate), Expires: 09/21/2023 [facility] Work Phone: Comment on above: Expected: 07/22/2023 (Approximate), Expires: 09/21/2023 Start: 07-18-2023 Covid-19 Vaccine ( season) Covid-19 Vaccine () [facility] Start: 07-18-2023 Influenza vaccination [facility] Start: 11-17-2022 [facility] Start: 09-20-2022 Adult depression scr eening assessment DEPRESSION SCREENING [facility] Start: 08-12-2022 DIABETES SCREEN DIABETES SCREEN [facility] Start: 08-07-2022 End: 10-07-2022 CBC W Auto Differential panel - Blood CBC + DIFF Lab Routine Rectal bleeding Expected: 08/07/2022, Expires: 10/07/2022 [facility] Work Phone: Comment on above: Expected: 08/07/2022 , Expires: 10/07/2022 Start: 07-18-2022 Influenza vaccination [facility] Start: 05-05-2022 Screening for malign ant neoplasm of cervix [facility] Start: 11-27-2021 COVID-19 VACCINE (3 - Booster for Moderna series) COVID-19 VACCINE (3 - Booster for Moderna series) [facility] Start: 11-17-2021 DEPRESSION ASSESSMENT [facility] Start: 08-22-2021 COVID-19 VACCINE (3 - Booster for Moderna series) COVID-19 VACCINE (3 - Booster for Moderna series) [facility] Start: 08-22-2021 COVID-19 VACCINE (3 - Moderna series) COVID-19 VACCINE (3 - Moderna series) [facility] Start: 07-18-2021 Influenza vaccination Flu vaccine (# 1) [employer] Phone: Start: 10-18-2020 Screening for malign ant neoplasm of breast [facility] Start: 2020 RSV Vaccine (1 - 1-d ose 60+ series) RSV Vaccine (1 - 1-dose 60+ series) [facility] Start: 2020 RSV Vaccine (1 - Ris k 60-74 years 1-dose series) RSV Vaccine (1 - Risk 60-74 years 1-dose series) [facility] Start: 2010 SHINGRIX VACCINE (1 of 2) [place]STON GRIX VACCINE (1 of 2) [facility] Start: 2005 COLOGUARD (FIT-DNA) COLOGUARD (FIT-D NA) [facility] Start: 2005 Colonoscopy COLONOSCOPY [facility] Start: 2005 COLORECTAL CANCER SCREENING COLORECTAL CANCER SCREENING [facility] Start: [address] COLONOGRAPHY [facility] Start: 2005 FECAL OCCULT BLOOD FECAL OCCULT BLOO D [facility] Start: 2005 Lipid 1996 panel - S marcela or Plasma Lipid Screening [facility] Start: 2005 Lipid panel Lipid Screening [facility] Start: 2005 LIPID SCREEN LIPID SCREEN [facility] Start: 2005 Screening for malign ant neoplasm of colon [facility] Start: 2005 SIGMOIDOSCOPY SIGMOIDOSCOPY [facility] Start: 2000 Mammography [facility] Start: 2000 Screening for malign ant neoplasm of breast Mammogram Screening [facility] Start: 1990 HPV TESTING HPV TESTING [facility] Start: 1990 Screening for malign ant neoplasm of cervix HPV/Cotest [facility] Start: 1981 PAP TESTING PAP TESTING [facility] Start: 1981 Screening for malign ant neoplasm of cervix Cervical Cancer Screening [facility] Start: 1979 Urine microalbumin profile [facility] Start: 1978 ANNUAL PCP TEAM DOBIE MAN SHAILA DISEASE VISIT ANNUAL PCP TEAM CHRONIC DISEASE VISIT [facility] Start: 1978 Anxiety Screening Anxiety Screening [facility] Start: 1978 BP CONTROLLED (<130/80) BP CONTROLLE D (<130/80) [facility] Start: 1978 Depression Screening Depression Scre ening [facility] Start: 1978 HEPATITIS C SCREENING HEPATITIS C [facility] Start: 1978 Hepatitis C screening Hepatitis C [facility] Start: 1978 HIV SCREENING HIV SCREENING [facility] Start: 1978 HIV screening HIV Screening [facility] Start: 1960 Screening for malign ant neoplasm of colon [facility] End: 03-05-2024 Colonoscopy COLONOSCOPY (THERAPEUTIC) Endoscopy Routine Rectal bleeding 1 Occurrences starting 03/05/2023 until 03/05/2024 [facility] Work Phone: Comment on above: 1 Occurrences starti ng 03/05/2023 until 03/05/2024 End: 07-26-2024 Ct thorax w/o contrast material CT CHEST WO IVCON Radiology Routine Interstitial pulmonary disease (HCC) 1 Occurrences starting 06/27/2023 until 07/26/2024 [facility] Work Phone: Comment on above: 1 Occurrences starti ng 06/27/2023 until 07/26/2024 End: 07-07-2021 Culture, Urine Culture, Urine Microbiology Routine Once for 1 Occurrences starting 07/07/2021 until 07/07/2021 [employer] Work Phone: Comment on above: Once for 1 Occurrenc es starting 07/07/2021 until 07/07/2021 Culture, Urine Culture, Urine Microbiology Routine 07/07/2021 2:00 PM EDT [employer] Phone: End: 06-27-2024 Echocardiography ECHO Cardiology Routine Other secondary pulmonary hypertension (HCC) 1 Occurrences starting 06/27/2023 until 06/27/2024 [facility] Work Phone: Comment on above: 1 Occurrences starti ng 06/27/2023 until 06/27/2024 H&P for surgery H&P FOR SURGERY Procedures Routine Radiation proctitis Ordered: 07/22/2023 [facility] Work Phone: Comment on above: Ordered: 07/22/2023 End: 07-26-2024 LUNG DIFFUSION CAPACITY (DLCO) LUNG DIFFUSION CAPACITY (DLCO) PFT Routine Interstitial pulmonary disease (HCC) 1 Occurrences starting 06/27/2023 until 07/26/2024 [facility] Work Phone: Comment on above: 1 Occurrences starti ng 06/27/2023 until 07/26/2024 LUNG DIFFUSION CAPAC ITY (DLCO) LUNG DIFFUSION CAPACITY (DLCO) PFT Routine Interstitial pulmonary disease (HCC) 08/29/2023 9:27 AM EDT [facility] Work Phone: End: 07-26-2024 LUNG VOLUMES LUNG VOLUMES PFT Routine Interstitial pulmonary disease (HCC) 1 Occurrences starting 06/27/2023 until 07/26/2024 [facility] Work Phone: Comment on above: 1 Occurrences starti ng 06/27/2023 until 07/26/2024 PAP TEST PAP TEST Lab Rou teri Vaginal bleeding History of endometrial cancer Ordered: 08/05/2024 [facility] Work Phone: Comment on above: Ordered: 08/05/2024 End: 07-26-2024 Pulmonary ventilation & perfusion imaging NM LUNG VENT / PERF VQ Radiology Routine Other secondary pulmonary hypertension (HCC) 1 Occurrences starting 06/27/2023 until 07/26/2024 [facility] Work Phone: Comment on above: 1 Occurrences starti ng 06/27/2023 until 07/26/2024 REFER FOR ADMIT INTERVIEW REFER FOR ADMIT INTERVIEW Procedures Routine Radiation proctitis Ordered: 07/22/2023 [facility] Work Phone: Comment on above: Ordered: 07/22/2023 End: 08-07-2023 Screening colonoscopy COLONOSCOPY SCREENING Endoscopy Routine Rectal bleeding 1 Occurrences starting 08/07/2022 until 08/07/2023 [facility] Work Phone: Comment on above: 1 Occurrences starti ng 08/07/2022 until 08/07/2023 End: 09-26-2022 Screening colonoscopy COLONOSCOPY SCREENING Endoscopy Routine Rectal bleeding 1 Occurrences starting 09/26/2022 until 09/26/2022 [facility] Work Phone: Comment on above: 1 Occurrences starti ng 09/26/2022 until 09/26/2022 SPIROMETRY BASELINE ONLY SPIROME TRY BASELINE ONLY PFT Routine ILD (interstitial lung disease) ([facility]) 08/29/2023 9:27 AM EDT [facility] Work Phone: SPIROMETRY WITH DILA TOR IF OBSTRUCTED SPIROMETRY WITH DILATOR IF OBSTRUCTED PFT Routine Dyspnea, unspecified type 06/27/2023 10:15 AM EDT [facility] Work Phone: XR Lumbar spine View s W flexion and W extension XR lumbar spine 4+ views w flexion extension Imaging Routine Lumbar radiculopathy, right Ordered: 11/01/2024 [facility] Work Phone: Comment on above: Ordered: 11/01/2024 [facility] Immunizations Immunization Date Immunization Notes Care Provider Kirsten bill 06-27-2021 COVID-19 vaccine, fu ll dose (MODERNA) Henry Ramos MD Work Phone: [facility] 11-21-2020 COVID-19 vaccine, fu ll dose (MODERNA) eHnry Ramos MD Work Phone: [facility] Payers Date Payer Category Payer [employer] [id number] 2020 Unknown MMO MMO [employer] [id number] 2020-Present [phone] [address] [place] [address] PPO [id number] 2020 Unknown [id number] 1960 Unknown [id number]. 174 1960 Unknown [id number] [id number]. 174 1960 Unknown [id number] 2.16.840.1.760822.3.579.2. 593 1960 Unknown [id number] 2.16.840.1.131901.3.579.2. 593 1960 Unknown [id number] 2.16.840.1.515519.3.579.2. 593 1960 Unknown [id number] 2.16.840.1.776793.3.579.2. 593 1960 Unknown [id number] 2.16.840.1.242523.3.579.2. 593 1960 Unknown [id number] 2.16.840.1.223074.3.579.2. 593 1960 Unknown [id number] 2.16.840.1.811276.3.579.2. 593 1960 Unknown [id number] 2.16.840.1.852235.3.579.2. 1259 1960 Unknown [id number] 2.16.840.1.640799.3.579.2. 9 1960 Unknown [id number]. 1259 1960 Unknown [id number]. 9 1960 Unknown [id number]. 1259 1960 Unknown [id number] [id number]. 9 1960 Unknown [id number] [id number]. 1259 1960 Unknown [id number] [id number]. 9 1960 Unknown [id number] [id number]. 1259 1959 [facility] [id number] 1959 Unknown [id number] Self-pay Self Pay [id number] Social History Date Type Detail Facility Start: 07-07-2021 End: 05-04-2024 Tobacco smoking status NVIS Never smoker [facility] Start: 07-07-2021 End: 10-07-2024 Tobacco use and exposure Never used VTM Start: 1960 Sex Assigned At Not on file [employer] Work Phone: Start: 10-29-2021 End: 09-26-2022 Exposure to SARS-CoV-2 (event) Not sure [facility]TM Start: 03-13-2022 End: 11-01-2024 Alcohol intake Current drinker of alcohol (finding) [facility] Start: 07-28-2019 History SDOH Alcohol Comment 3 drinks per month [facility] Start: 03-05-2023 End: 10-07-2024 Sex Assigned At [facility] Start: 03-05-2023 End: 10-07-2024 History of Social function [facility] Adult Depression Screening Assessment 0 [facility] Start: 1960 Sex Assigned At Female F [facility] How often to you hav e a drink containing alcohol? 2-4 times a month [facility] How many standard drinks containing alcohol do you have on a typical day? 1 or 2 [facility] How often do you hav e 6 or more drinks on 1 occasion? Never [facility] Start: 09-29-2023 Gender identity Identifies as female gender (finding) [facility] Start: 11-26-2024 Sex Female (finding) [facility] Medical Equipment Procedure Code Equipment Code Equipment Origin al Text Equipment Identifier Dates Minimally invasive revision of total replacement of hip Orthopaedic bone screw, non-bioabsorbable, sterile [id number] FDA Start: 11-02-2021 Minimally invasive revision of total replacement of hip Acetabular shell ()[id number] FDA Start: 11-02-2021 Minimally invasive revision of total replacement of hip Non-constrained polyethylene acetabular liner ()[id number] FDA Start: 11-02-2021 Minimally invasive revision of total replacement of hip Acetabulum prosthesis hole plug ()[id number] FDA Start: 11-02-2021 Minimally invasive revision of total replacement of hip Ceramic femoral head prosthesis ()[id number] FDA Start: 11-02-2021 Minimally invasive revision of total replacement of hip Coated hip femur prosthesis, modular ()[id number] FDA Start: 11-02-2021 Arthroplasty, thumb Tendon/ligam ent bone anchor, non-bioabsorbable ()[id number] FDA Start: 09-14-2020 Clinical Notes 12-13-2021 to 11-01-2024 IAN De La Torre - 11/01/2024 10:30 AM Anali Valenzuela APRN-ICT SYSTEMS TEST ENGINEER - 10/07/2024 11:05 AM Melody Neves APRN.ICT SYSTEMS TEST ENGINEER - 08/19/2024 1:51 PM EDTHenry Ramos MD - 08/05/2024 11:10 AM EDT Note Date & Type Note Facility 11-01-2024 History of Present illness Narrative Images from the original note were not included. HISTORY OF PRESENT ILLNESS: EST PT Isabel Stover is an 64 y.o. @ female. (EST PT) HERE FOR YEARLY CHECK OF (R) SHAAN 11/02/21 (~3 YRS) XRAYS DONE TODAY, 11/01/24 IN EPIC BONE SCAN 03/19/24 @ [facility] S/P MDP 02/13/24 FINISHED PHYSICAL THERAPY ; POST-OP CONTINUES TO HAVE CONSTANT ACHINESS ; DIFFUSE - WORSE WITH ACTIVITY / MOVEMENT ; STATES PAIN LIMITS HER ACTIVITIES. NOTES LIMITED ROM - DENIES ANY CLICKING / LOCKING. SOME WEAKNESS WITH ACTIVITY / PROLONGED AMBULATION. TAKING ALEVE PRN ; SOME RELIEF. ALLERGIES: No Known Allergies HOME MEDICATIONS: Current Outpatient Medications Medication Instructions celecoxib (CeleBREX) 200 MG capsule methylPREDNISolone (Medrol Dospak) 4 MG tablets Follow schedule on package instructions PHYSICAL EXAM: Hip Musculoskeletal Exam Gait Gait is normal. Inspection Leg length disparity: no discrepancy Right Erythema: none Ecchymosis: none Edema: none Deformity: none Previous incision: anterolateral Incision: well-healed Palpation Right Right hip palpation is normal. Increased warmth: none Tenderness: none Range of Motion Right Right hip range of motion is within functional limits. Active ROM: pain. Passive ROM: pain. Passive ROM comment: Pain on hip flexion and SLR with pain from lower back into lower leg. Strength Right Right hip strength is normal. Extension: 5/5. Flexion: 3/5. Flexion is affected by pain. Internal rotation: 5/5. External rotation: 5/5. Adduction: 4+/5. Abduction: 5/5. Strength additional comments: Hamstring/ Quad on right leg is 4-/5 Hamstring/ Quad on left leg is 5/5 Neurovascular Right Right hip neurovascular exam is normal. Sensation comment: mild parethesias L3 dermatome Pulses - PT: normal Posterior tibial: 2+ Special Tests Special tests additional comments: SLR + for radiculopathy Reflexes 1+ patella. 2+ achilles. Neg clonus. + TTP right SI joint/ buttock into right lower leg. General Constitutional: appears stated age Labored breathing: no Psychiatric: normal mood and affect Neurological: alert and oriented x3 Skin: intact Lymphadenopathy: none Vitals: There is no height or weight on file to calculate BMI. Tobacco Use: Low Risk (11/01/2024) Patient History Smoking Tobacco Use: Never Smokeless Tobacco Use: Never Passive Exposure: Not on file Alcohol Use: Not At Risk (09/20/2023) AUDIT-C Frequency of Alcohol Consumption: 2-4 times a month Average Number of Drinks: 1 or 2 Frequency of Binge Drinking: Never IMAGING: Procedures Orders Placed This Encounter Procedures XR hip right 2 or 3 views Order Specific Question: Reason for exam: Answer: PAIN XR lumbar spine 4+ views w flexion extension Order Specific Question: Reason for exam: Answer: LUMBAR PAIN MR lumbar spine wo contrast Standing Status: Future Standing Expiration Date: 11/01/2025 Scheduling Instructions: [facility] ; PLEASE CALL PT TO SCHEDULE (XRAYS BEING DONE TODAY, 11/01/24 @ [facility]) Order Specific Question: Reason for exam: Answer: LUMBAR RADICULOPATHY ASSESSMENT: ICD-10-CM 1. History of right hip replacement Z96.641 2. Acute pain of right hip M25.551 XR hip right 2 or 3 views 3. Lumbar radiculopathy, right M54.16 XR lumbar spine 4+ views w flexion extension MR lumbar spine wo contrast L3 , L2 Assessment & Plan 1. Right hip pain, status post right hip replacement. She reports limitations with activity due to pain in the right leg, describing pain in the right posterior hip radiating to the right lateral hip and down her leg, sometimes shooting and often stopping at her knee. This suggests L3 radiculopathy. There is notable weakness with hip flexion and knee extension, but no evidence of tendon disruption. She has had extensive evaluation of her right hip prosthesis without evidence of complication. An x-ray of the lumbar spine, 4-view with flexion and extension views, and an MRI of the lumbar spine are recommended given her leg weakness and limited activity. Follow-up will be scheduled pending the MRI results to rule out L3 radiculopathy on the right side. A referral to pain management will be considered. Pt notes limited ability to walk on vacation. Questions answered in laymen terms at the bedside. The diagnosis, home exercise plan and any ongoing restrictions/ recommendations reviewed. If unable to be reached in office, I recommend evaluation at nearest Emergency Room if any symptoms worsened or new symptoms develop for requiring urgent evaluation. documented in this encounter [facility] 10-07-2024 History of Present illness Narrative Skin Check Location: Patient requests a full body skin examination Dermatologic history: history of Actinic Keratosis Last visit: 1 year ago Established patient of BOOKER Alvarez All pertinent medical history, medications, and allergies were reviewed. General Exam: alert, oriented to person, place, and time, normal affect, well appearing Unaccompanied Scalp, Examined Right leg Examined Head, Face Examined Left leg Examined Neck Examined Right foot Examined Chest Examined Left foot Examined Back Examined Buttocks Examined Abdomen Examined Digits,nails: Examined Right arm Examined Patient wearing nail [facility], Denies dark streaks on toenails Left arm Examined Lymphatics: Not examined Hands Examined 1. Seborrheic keratosis Stuck on verrucous, variably pigmented papules and plaques. Patient was counseled regarding these benign growths. Removal is normally not necessary, but they may be removed if they are symptomatic or for cosmetic reasons. 2. Melanocytic nevus of trunk Scattered benign appearing, regular brown to light brown melanocytic papules and macules with similar morphology Counseled regarding these benign growths. Rarely, a nevus can develop into malignant melanoma, so any changing nevi should be promptly re-evaluated. Next Visit: 1 year documented in this encounter [facility] 08-19-2024 Note HNO ID: [id number] Author: MELODY MENA APRN.CNP Service: ? Author Type: Nurse Practitioner Type: Progress Notes Filed: 08/21/2024 11:16 Note Text: Attempted to call patient, no answer, message left to call back. Phone message also sent by Ernesto Chacko CNP. Will send mychart message. Melody Mena APRN.CNP [facility] 08-19-2024 History of Present illness Narrative Attempted to call patient, no answer, message left to call back. Phone message also sent by Ernesto Chacko CNP. Will send Moxiehart message. Melody Mena APRN.CNP documented in this encounter [facility] 08-18-2024 Telephone encounter Note Message left for patient. Pap test inconclusive. She should call the office if she has persistent bleeding. MRI if symptoms persist. Ernesto Chacko APRN.CNP [facility] Work Phone: 08-18-2024 Miscellaneous Notes Message left for patient. Pap test inconclusive. She should call the office if she has persistent bleeding. MRI if symptoms persist. Ernesto Chacko APRN.CNP documented in this encounter [facility] 08-16-2024 Note Unsatisfactory for e valuation. Limited cellularity. [facility] Work Phone: 08-05-2024 History of Present illness Narrative Gynecologic Oncology [facility] - [facility] Follow up visit Date of service: 08/05/2024 PROBLEM/CC: Isabel Stover presents for endometrial cancer surveillance visit with spotting. HPI: Ms. 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 Vaginal biopsy performed on 05/25/2021 showed tumor cells diffusely and strongly positive for immunohistochemical stain for PAX 8 supporting a diagnosis of endometrioid adenocarcinoma. Vaginal recurrence treated with vaginal cuff brachytherapy s/p 45 Gy in 25 fx EBRT followed by 30 Gy in 5 Fx completed 08/17/2021. Last Office Visit: 01/03/2023 ONCOLOGY HISTORY: PRIOR THERAPY & DATE: 06/29/2019: D&C - Endometrioid adenocarcinoma, FIGO 2; confirmed by [facility] Pathology 08/12/2019: Robotic total hysterectomy, bilateral salpingo-oophorectomy, cystotomy/cystotomy repair and cystoscopy PATHOLOGY: Moderately differentiated adenocarcinoma, endometrioid cell type with mucinous and squamous differentiation, FIGO grade 2. Neg LVSI, 13% [place] pT1a ([place]): Tumor limited to endometrium or invades less than 1/2 of the myometrium 05/25/2021 Vaginal biopsy Vagina, biopsy - Consistent with endometrioid adenocarcinoma (see comment). GZ/ka 05/28/2021 COMMENT The tumor cells are diffusely and strongly positive for immunohistochemical stain for [place] 8, supporting the above diagnosis. The patient [...] SCOPE 1981 SHOULDER SURGERY HX Bilateral ~2014 FAMILY HISTORY Problem Relation Age of Onset Thyroid Mother Thyroid Maternal Grandmother Social History Tobacco Use Smoking status: Never Smokeless tobacco: Never Vaping Use Vaping status: Never Used Substance Use Topics Alcohol use: Yes Comment: [...] No specimens collected. ALLERGIES No Known Allergies ferrous sulfate (IRON ORAL)^Take 28 mg by mouth once daily.^Disp: ^Rfl: cholecalciferol, vitD3,/vit K2 (VITAMIN D3-VITAMIN K2 ORAL)^Take 1 tablet by mouth once daily. Plus vitamin A and K1^Disp: ^Rfl: MAGNESIUM ORAL^Take 240 mg by mouth two times a day.^Disp: ^Rfl: methIMAzole (TAPAZOLE) 10 mg tablet^Take 10 mg by mouth two times a day.^Disp: ^Rfl: ibuprofen (MOTRIN) 800 mg tablet^Take by mouth q 8 HR.^Disp: ^Rfl: dicyclomine (BENTYL) 10 mg capsule^Take 1 capsule by mouth before meals and at bedtime. As needed.^Disp: ^Rfl: carvedilol (COREG) 25 mg tablet^Take 1 tablet by mouth twice daily.^Disp: ^Rfl: ascorbic acid, vitamin C, (VITAMIN C) 500 mg tablet^Take 500 mg by mouth once daily.^Disp: ^Rfl: TURMERIC ORAL^Take 1,000 mg by mouth once daily.^Disp: ^Rfl: venlafaxine ER (EFFEXOR XR) 150 mg 24 hr capsule^Take 150 mg by mouth daily at bedtime. ^Disp: ^Rfl: [id number]-[id number]-BRY-FISH OIL-L.CASEI ORAL^Take by mouth once daily.^Disp: ^Rfl: Lactobac no.41/Bifidobact no.7 (PROBIOTIC-10 ORAL)^Take by mouth once daily.^Disp: ^Rfl: MULTIVITAMIN TAB^Take by mouth.^Disp: ^Rfl: 0 B COMPLEX VITAMINS CAP^Take one(1) capsule daily.^Disp: ^Rfl: 0 CALCIUM CARBONATE-VIT D3-MINERALS 600 MG-400 UNIT TAB^Take 1 tablet by mouth two times a day.^Disp: ^Rfl: 0 acetaminophen (TYLENOL) 500 mg tablet^Take 1-2 tablets by mouth every 6 hours as needed for pain. Do not exceed 3-4g/24hr.^Disp: ^Rfl: albuterol HFA (PROVENTIL HFA, VENTOLIN HFA) 90 mcg/actuation inhaler^INHALE 2 PUFFS EVERY 4 HOURS NEEDED FOR COUGH OR SHORTNESS OF BREATH FOR 30 DAYS^Disp: ^Rfl: (Patient not taking: Reported on 07/04/2023) ADVAIR DISKUS 250-50 mcg/dose inhaler^INHALE 1 PUFF TWICE A DAY FOR 30 DAYS^Disp: ^Rfl: (Patient not taking: Reported on 07/04/2023) iv contrast (will be provided with radiology test)^CT Chest ABD/PEL-Inject, intravenously, once for 1 dose.No [...] 0 (Patient not taking: Reported on 06/27/2023) enteric contrast (will be provided with radiology test)^For CT CHESTABD/PEL W IVCON Routine order Administer, As Directed One Time Only, via Oral, Rectal, both Oral and Rectal, Enteric Tube, Stoma or Indwelling Catheter, Enteric Contrast as designated per enteric contrast guidelines^Disp: 1 Each^Rfl: 0 (Patient not taking: Reported on 06/27/2023) INTERVAL HISTORY: Isabel Stover reports that she feels good. She presents today alone. 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 Diagnosed with Graves Disease in 05/2024, presently on methimazole bid. Endorses intermittent vaginal spotting over the last couple of weeks. No shortness of breath, cough, or chest pain. No abdominal pain, nausea, vomiting, diarrhea, or constipation. No dysuria, gross hematuria, urinary frequency, urinary urgency, or incontinence. No neuropathy. No fevers or chills. No swelling in extremities. No rashes, skin lesions, blisters or mouth sores. No headaches or vision changes. No tinnitus or changes in hearing. Her ECOG performance status is zero (fully active, able to carry on all pre-disease performance without restriction). PHYSICAL EXAM: The sensitive examination was discussed with the Patient or Patient's Authorized Quality Assurance Analyst. As applicable, any other physician, advance practice provider, medical student, or other health professional student that will be observing or involved in the sensitive examination for educational or training purposes was discussed with the Patient or Authorized Quality Assurance Analyst. The Patient or Authorized Quality Assurance Analyst has agreed to proceed with the sensitive examination. (Sensitive examination includes inspection and/or palpation of the breasts, pelvis, prostate and anorectal regions) VITALS: BP 141/75 Pulse 81 Temp 37.2 C (99 F) Ht 167.6 cm (5' 6 ) Wt 67.1 kg (147 lb 14.9 oz) SpO2 97% BMI 23.88 kg/m Dee Dee Wills RN GENERAL: Patient is a well developed, well nourished, no acute distress. Presenting alone. SKIN: Color, texture, turgor normal. No rashes or lesions. HEENT: Normocephalic, atraumatic, mucus membranes moist, and no lesions. NECK: Supple, no adenopathy; thyroid symmetric, normal size, no bruits. LUNGS: Respirations unlabored. Chest clear. HEART: Regular rate and rhythm. No murmer. No JVD. ABDOMEN: Nontender. No palpable masses. No hernia felt. No ascites apparent. PELVIC: Vulva normal in appearance and nontender. Vagina shows significant stenosis and foreshortening measurin only 2-3 cm in depth. A pediatric speculum was used to visualize the vaginal mucosa which shows no lesions. There was no bleeding as a result of speculum exam. Pap smear of vagina was collected. No lesions seen to biopsy. On rectal exam no hemorrhoid seen. No palpable ulcer. Stool was brown. PSYCHIATRIC: Alert, cooperative. Normal affect. Normal behavior. LYMPH NODES: No palpable enlarged nodes in neck or groin. NEURO: Gait normal. LOWER EXTREMITIES: Not tender. No ulcers or swelling. Technology Infusion Specialist for exam: Melody Mena APRN.ICT SYSTEMS TEST ENGINEER RESULTS: CA 125 (U/mL) Date Value 12/13/2021 9 06/04/2021 8 07/12/2019 15 08/22/2024 CT chest IMPRESSION: 1. No convincing findings of interstitial lung disease. There is excessive dynamic collapse of mainstem bronchi. 2. Unchanged scattered calcified granulomas. No suspicious lung nodules. ASSESSMENT & PLAN: 05/25/2021 IA endometrioid type endometrial adenocarcinoma, FIGO grade [...] symptoms - Referral to Dr. Sita Naidu [facility] - Mammogram gets this done locally, will review with PCP - Colonoscopy due, will review with PCP Dee Dee Carter APRN.ICT SYSTEMS TEST ENGINEER 05/30/2021 Distance Health Visit 61 yo female with h/o Stage IA [...] if she has any questions or concerns. Dee Dee Carter APRN.ICT SYSTEMS TEST ENGINEER 06/06/2021 61 yo female with h/o Stage [...] her today already. Test vaginal lesion for ER/NM receptors See me September 19 for post treatment exam. 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 Will repeat imaging at this time since completed radiation. Patient to follow up in 3 months for pelvic exam at that time. Discussed dilator use. 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 Referral placed to gastroenterology. Patient is also due for repeat colonoscopy. Palpitations: Suspect related to hyperthyroidism, advised follow up with PCP and Catcher Plug. Ernesto Chacko APRN.ICT SYSTEMS TEST ENGINEER 03/13/2022 Recurrent Endometrial cancer with recurrence in [...] ferritin. Recommend she start following with a F assembler golf wood head for her rectal bleeding. We will assist with GI referral. This clinic will be in touch following labs for a potential iron prescription. Follow up in 6 months for continued surveillance. 05/04/2024 Med Onc Visit with Najma Barbour MD Note under 05/04/2024 scanned documents 08/05/2024 History of recurrent endometrial cancer, s/p hysterectomy, BSO, local recurrence treated with radiation completed in 08/2021. Treated last year for radiation proctitis. Recent bleeding associated with starting methimazole for her Graves disease. On today's examination, no obvious recurrence. If pap smear shows malignancy, work up for recurrence will be done. She will be contacted with results. If bleeding persists MRI will be obtained for suspicion of recurrence. If bleeding stops, return to see me in 4 months. I spent a total of 30 minutes on the date of the service which included preparing to see the patient, [id number] patient care, completing clinical documentation, obtaining and/or reviewing separately obtained history, performing a medically appropriate examination, counseling and educating the patient/family/caregiver, ordering medications, tests, or procedures, independently interpreting results (not separately reported), and care coordination (not separately reported). Documentation from notes of previous visit of 01/03/2023 was copied and pasted, documentation has been reviewed and edited as necessary and is current for today. ATTESTATION Scribe Attestation: By signing my name below, ICarolyn, attest that this documentation has been prepared under the direction and in the presence of Henry Ramos MD. Electronically Signed: Blu Raymond. August 05, 2024 1:10 PM. Provider Attestation: Franko, Dr. Henry Ramos, personally performed the services described in this documentation. All medical record entries made by the scribe were at my direction and in my presence. I have reviewed the chart and discharge instructions (if applicable) and agree that the record reflects my personal performance and is accurate and complete. Electronically Signed: Henry Ramos MD. August 16, 2024 12:40 PM documented in this encounter [facility] 08-05-2024 Note HNO ID: [id number] Author: HENRY RAMOS MD Service: ? Author Type: Physician Type: Progress Notes Filed: 08/16/2024 12:41 Note Text: Gynecologic Oncology [facility] Follow up visit Date of service: 08/05/2024 PROBLEM/CC: Isabel Stover presents for endometrial cancer surveillance visit with spotting. HPI: Ms. 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 Vaginal biopsy performed on 05/25/2021 showed tumor cells diffusely and strongly positive for immunohistochemical stain for PAX 8 supporting a diagnosis of endometrioid adenocarcinoma. Vaginal recurrence treated with vaginal cuff brachytherapy s/p 45 Gy in 25 fx EBRT followed by 30 Gy in 5 Fx completed 08/17/2021. Last Office Visit: 01/03/2023 ONCOLOGY HISTORY: PRIOR THERAPY AND DATE: 06/29/2019: [facility] - Endometrioid adenocarcinoma, FIGO 2; confirmed by [facility] Pathology 08/12/2019: Robotic total hysterectomy, bilateral salpingo-oophorectomy, cystotomy/cystotomy repair and cystoscopy PATHOLOGY: Moderately differentiated adenocarcinoma, endometrioid cell type with mucinous and squamous differentiation, FIGO grade 2. Neg LVSI, 13% [place] pT1a ([place]): Tumor limited to endometrium or invades less than 1/2 of the myometrium 05/25/2021 Vaginal biopsy Vagina, biopsy - Consistent with endometrioid adenocarcinoma (see comment). GZ/fiorella 05/28/2021 COMMENT The tumor cells are diffusely and strongly positive for immunohistochemical stain for [place] 8, supporting the above diagnosis. The patient [...] Never Smokeless tobacco: Never Vaping Use Vaping status: Never Used Substance Use Topics Alcohol use: Yes Comment: [...] No specimens collected. ALLERGIES No Known Allergies ferrous sulfate (IRON ORAL)Take 28 mg by mouth once daily.Disp: Rfl: cholecalciferol, vitD3,/vit K2 (VITAMIN D3-VITAMIN K2 ORAL)Take 1 tablet by mouth once daily. Plus vitamin A and K1Disp: Rfl: MAGNESIUM ORALTake 240 mg by mouth two times a day.Disp: Rfl: methIMAzole (TAPAZOLE) 10 mg tabletTake 10 mg by mouth two times a day.Disp: Rfl: ibuprofen (MOTRIN) 800 mg tabletTake by mouth q 8 HR.Disp: Rfl: dicyclomine (BENTYL) 10 mg capsuleTake 1 capsule by mouth before meals and at bedtime. As needed.Disp: Rfl: carvedilol (COREG) 25 mg tabletTake 1 tablet by mouth twice daily.Disp: Rfl: ascorbic acid, vitamin C, (VITAMIN C) 500 mg tabletTake 500 mg by mouth once daily.Disp: Rfl: TURMERIC ORALTake 1,000 mg by mouth once daily.Disp: Rfl: venlafaxine ER (EFFEXOR XR) 150 mg 24 hr capsuleTake 150 mg by mouth daily at bedtime. Disp: Rfl: [id number]-FISH OIL-L.CASEI ORALTake by mouth once daily.Disp: Rfl: Lactobac no.41/Bifidobact no.7 (PROBIOTIC-10 ORAL)Take by mouth once daily.Disp: Rfl: MULTIVITAMIN TABTake by mouth.Disp: Rfl: 0 B COMPLEX VITAMINS CAPTake one(1) capsule daily.Disp: Rfl: 0 CALCIUM CARBONATE-VIT D3-MINERALS 600 MG-400 UNIT TABTake 1 tablet by mouth two times a day.Disp: Rfl: 0 acetaminophen (TYLENOL) 500 mg tabletTake 1-2 tablets by mouth (more content not included)... [facility] 08-04-2024 Telephone encounter Note Called pt regarding msg. Pt c/o spotting. Pt has not been using a pad or panty liner. States that she is having some bright red blood with wiping. Pt accepted f/u appt to RTC with Dr. Ramos for tomorrow 08/05 at 11:10am. Msg sent to scheduling. [facility] 08-04-2024 Miscellaneous Notes Called pt regarding msg. Pt c/o spotting. Pt has not been using a pad or panty liner. States that she is having some bright red blood with wiping. Pt accepted f/u appt to RTC with Dr. Ramos for tomorrow 08/05 at 11:10am. Msg sent to scheduling. documented in this encounter [facility] 10-23-2023 Evaluation note Encounter Date Diagnosis Assessment Notes Oct, Iron deficiency anemia due to chronic blood loss (ICD-10 - D50.0) Oct, Decreased thyroid stimulating hormone (TSH) level (ICD-10 - R79.89) Oct, Pulmonary hypertension (ICD-10 - I27.20) [employer] Other 11-13-2023 History of Present illness Narrative* South Saba DO - 09/29/2023 10:20 AM EST COLORECTAL SURGERY Follow-up September 23, 2023 Chief complaint: postop follow up HPI: Isabel Stover is a 63 year old female with [...] Medical Decision Making: Assessment & Diagnosis: Isabel Stover is a 63 year old female with history of endometrial cancer s/p radiation c/b radiation proctitis. Feeling much better after EUA with topical formalin in OR on 09/02/23. Data Reviewed: Tests & Documents Reviewed/ordered: Review of Pathology I have independently interpreted: none I have discussed Isabel Stover's treatment plan and/or results with patient. Treatment [...] of treatment plan: low documented in this encounterSumma Health [facility]11-13-2023 NoteHNO ID: [id number] Author: South Saba DO Service: ? Author Type: Physician Type: Progress Notes Filed: 10/07/2023 2:04 PM Note Text: COLORECTAL SURGERY Follow-up September 23, 2023 Chief complaint: postop follow up HPI: Isabel Stover is a 63 year old female with [...] Medical Decision Making: Assessment AND Diagnosis: Isabel Stover is a 63 year old female with history of endometrial cancer s/p radiation c/b radiation proctitis. Feeling much better after EUA with topical formalin in OR on 09/02/23. Data Reviewed: Tests AND Documents Reviewed/ordered: Review of Pathology I have independently interpreted: none I have discussed Isabel Stover's treatment plan and/or results with patient. 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 storm, 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 - E05.90) [employer] Other 10-30-2023 Evaluation note* Encounter Date Diagnosis Assessment Notes Treatment Notes Treatment Clinical Notes Aug, Decreased thyroid stimulating hormone (TSH) level (ICD-10 - R79.89) [employer] Other 10-27-2023 Evaluation note* Encounter Date Diagnosis [...] Ferritin May be candidate for Fe IV [employer] Other 10-18-2023 Evaluation note* Encounter Date Diagnosis Assessment Notes Treatment Notes Treatment Clinical Notes Aug, Radiation proctitis (ICD-10 - K62.7) Aug, Iron deficiency anemia due to chronic blood loss (ICD-10 - D50.0) [employer] Other 10-17-2023 NoteHNO ID: [id number] Author: Brannon Sung APRN.SCRIPT EDITOR Service: ? Author Type: Nurse Party Plan Sales Agent Type: Anesthesia Procedure Notes Filed: 09/02/2023 8:05 AM Note Text: ANESTHESIOLOGY PROCEDURE NOTE Airway General Information Procedure Start Time/Medication Administration: 09/02/2023 7:58 AM Patient location during procedure: OR Timeout Performed Pre-procedure: timeout performed Consent Obtained: Yes Patient identity confirmed: arm band, care operations team leader and patient Staffing SCRIPT EDITOR: Brannon Sung APRN.SCRIPT EDITOR Performed by: SCRIPT EDITOR Indications and Patient Condition Indications for airway [...] no Airway not difficult SIGNATURE: Brannon Sung APRN.SCRIPT EDITOR PATIENT NAME: Isabel Stover DATE: September 02, 2023 TIME: 8:05 AM CSN: [id number] * Encounter Date Diagnosis Assessment Notes Treatment Notes Treatment Clinical Notes Aug, Dilated cardiomyopathy (ICD-10 - I42.0) Echo: LVEF normal, RVSP 31, LAE [employer] Other 10-13-2023 History and physical note* Elder Galan APRN.ICT SYSTEMS TEST ENGINEER - 08/29/2023 11:00 AM EDT COLON AND RECTAL HISTORY AND PHYSICAL EXAMINATION SERVICE DATE: 08/29/2023 Primary Care Physician: Roland Serrano DO Chief complaint: pre operative examination Surgeon: Dr. Saba Procedure: Examination under anesthesia, Flexible sigmoidoscopy, injection of formalin, or any other indicated procedure HPI: Isabel Stover is a 63 year old female who [...] Medical Decision Making: Assessment & Diagnosis: Isabel Stover is a 63 year old female here [...] of treatment plan: high documented in this encounterSumma Health [facility]10-13-2023 History of Present illness Narrative* Heidi Menard MD - 08/29/2023 10:00 AM EDT Images from the original note were not included. Ms. Stover is a 63 year old female who presents to the [facility] [place]. 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 ^Disp: ^Rfl: Pain today: Ms. Stover is not having pain related to the [...] personally reviewed by me Data Reviewed from [facility] (in addition to that noted [...] MD Pulmonary and Critical Care Fellow [facility] [place] Staff note: I have personally interviewed and [...] Hilton Adame MD 08/29/2023 documented in this encounterSumma Health Akron Campus10-13-2023 NoteHNO ID: [id number] Author: Heidi Menard MD Service: ? Author Type: Fellow Type: Progress Notes Filed: 08/29/2023 4:02 PM Note Text: Ms. Stover is a 63 year old female who presents to the [facility] [place]. 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 Author Type: Registered Resp Therapist Type: Progress Notes Filed: 08/29/2023 9:52 AM Note Text: PULM FUNCTION SMARTBLOCK: Provider: Mike Presley MD Spirometry: 1 DLCO: 1 LV - Box: 1CC[facility]10-13-[facility] History of Present illness Narrative* Sveta Roman RRT - 08/29/2023 9:52 AM EDT PULM FUNCTION SMARTBLOCK: Provider: Mike Presley MD Spirometry: 1 DLCO: 1 LV - Box: 1 documented in this encounterSumma Health Akron Campus10-13-2023 History of Present illness Narrative* Marshal Vasquez RT(Be) - 08/29/2023 9:00 AM EDT Radiology Service Progress Note PATIENT NAME: Isabel Stover DATE OF SERVICE: August 29, 2023 TIME: [...] IV DATA: Not applicable SIGNED BY: RT Tammy(Be) August 29, 2023 9:10 AM documented in this encounterSumma Health Akron Campus10-13-2023 NoteHNO ID: [id number] Author: Marshal Vasquez RT(R) Service: ? Author Type: Technologist Type: Progress Notes Filed: 08/29/2023 9:11 AM Note Text: Radiology Service Progress Note PATIENT NAME: Isabel Stover DATE OF SERVICE: August 29, 2023 TIME: [...] BY: RT Tammy(R) August 29, 2023 9:10 [facility]10-10-2023 NoteHNO ID: [id number] Author: Gilberto Beth Service: ? Author Type: ? Type: Progress Notes Filed: 08/26/2023 4:28 PM Note Text: Sang to pair w dlco/lv on upcoming f[facility]Fire[facility] History of Present illness Narrative* Gilberto Beth - 08/26/2023 4:16 PM EDT Sang to pair w dlco/lv on upcoming f/u visit documented in this encounterSumma Health Akron Campus10-06-2023 NoteHNO ID: [id number] Author: Nuvia Grewal RT(R) Service: Radiology Author Type: Circular Sawyer Helper Type: Progress Notes Filed: 08/22/2023 8:34 AM Note Text: Radiology Service Progress Note PATIENT NAME: Isabel Stover DATE OF SERVICE: August 22, 2023 TIME: [...] BY: RT Seth(R) August 22, 2023 8:33 [facility]ake[id number] History of Present illness Narrative* Nuvia Grewal RT(R) - 08/22/2023 8:30 AM EDT Radiology Service Progress Note PATIENT NAME: Isabel Stover DATE OF SERVICE: August 22, 2023 TIME: [...] 22, 2023 8:33 AM documented in this encounterSumma Health Akron Campus09-18-2023 Evaluation note* Encounter Date Diagnosis Assessment [...] symptoms. Will initiate antibiotics and have called [facility] Med at [facility]. Since her symptoms developed > 5 days ago, no Paxlovid has been prescribed Jul, Bronchitis, not specified as acute or chronic (ICD-10 - J40) Instructed to use Robitussin or Mucinex for cough, saline or Flonase NS for congestion, Tylenol for pain and fever. [employer] Other 09-05-2023 Miscellaneous Notes* Telephone Encounter - Divya Karimi - 07/22/2023 3:17 PM EDT Isabel Stover accepts 09/01 and 09/02 dates for preop and surgery documented in this encounterSumma Health [facility] Campus09-05-2023 Miscellaneous Notes* Telephone Encounter - Enid Baker - 07/22/2023 2:48 PM EDT [phone] Patient calling to reschedule her EUA. documented in this encounterSumma Health Akron Campus08-22-2023 Evaluation note* Encounter Date Diagnosis Assessment Notes Treatment Notes Treatment Clinical Notes Jun, SHERIF (generalized anxiety disorder) (ICD-10 - F41.1) [place] [employer] Other 08-18-2023 History and physical note* South Saba DO - 07/04/2023 9:00 AM EDT COLORECTAL SURGERY New Patient Visit July 01, 2023 Chief Complaint: Radiation proctitis History of Present Illness: Isabel Stover is a 63 year old year old [...] pain. Patient reports regular bowel movements. 03/05/23 Cherelle Medina, ICT SYSTEMS TEST ENGINEER: Isabel Stover is a 62 year old female who [...] 150 mg by mouth daily at bedtime. [id number]-FISH OIL-L.CASEI ORAL Take by mouth once daily. [...] Medical Decision Making: Assessment & Diagnosis: Isabel Stover is a 63 year old female with [...] Documents Reviewed/ordered: Review of prior notes from [facility], pulmonary medicine Review of prior operative reports Review of Pathology Review of Imaging: CT Abdomen, CT Pelvis, CT Chest Review of Labs: CBC Review of Procedures / Tests: Colonoscopy I have independently interpreted: CT Abdomen, CT Pelvis I have discussed Isabel Stover's treatment plan and/or results with patient. Treatment [...] of treatment plan: high documented in this encounterSumma Health [facility] Campus08-11-2023 History of Present illness Narrative* Heidi Menard MD - 06/27/2023 10:29 AM EDT Images from the original note were not included. Ms. Stover is a 63 year old female who presents to the [facility] [place]. Consultation requested by Self. 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 Silica: No significant exposure. [place]: No significant exposure. Organic HP antigen: No [...] 150 mg by mouth daily at bedtime. JAQQ3-[id number]-RNE-FISH OIL-L.CASEI ORAL Take by mouth once daily. Lactobac no.41/Bifidobact no.7 (PROBIOTIC-10 ORAL) Take by mouth once daily. MULTIVITAMIN TAB Take one(1) tablet daily. B COMPLEX VITAMINS CAP Take one(1) capsule daily. CALCIUM CARBONATE-VIT D3-MINERALS 600 MG-400 UNIT TAB Take 1 tablet by mouth twice daily. Pain today: Ms. Stover is not having pain related to the [...] personally reviewed by me Data Reviewed from [facility] (in addition to that noted [...] MD Pulmonary and Critical Care Fellow [facility] [place] STAFF ATTENDING NOTE I have personally interviewed [...] Mike Thompson MD 06/29/2023 documented in this encounterSumma Health [facility] Campus08-11-2023 History of Present illness Narrative* Dayan Marlye RRT - 06/27/2023 10:26 AM EDT PULM FUNCTION SMARTBLOCK: Provider: Pedro Rodarte MD Spirometry: 1 System: 3 - [id number] documented in this encounterSumma Health Akron Campus07-07-2023 Evaluation note* Encounter Date Diagnosis Assessment [...] and feet daily for blisters and ulcerations. [employer] Other 06-27-2023 Evaluation note* Encounter Date Diagnosis Assessment Notes Treatment Notes Treatment Clinical Notes Apr, History of total right hip replacement (ICD-10 - Z96.641) [employer] Other 06-07-2023 Evaluation note* Encounter Date Diagnosis [...] F41.1) Healthy diet, exercise and keep active [employer] Other 2023 Evaluation note* Encounter Date Diagnosis Assessment Notes Treatment Notes Treatment Clinical Notes March, Mild intermittent asthma without complication (ICD-10 - J45.20) [employer] Other 05-05-2023 Evaluation note* Encounter Date Diagnosis Assessment Notes Treatment Notes Treatment Clinical Notes March, Dyspnea on exertion (ICD-10 - R06.09) [employer] Other 04-24-2023 Evaluation note* Encounter Date Diagnosis Assessment Notes Treatment Notes Treatment Clinical Notes Feb, Shortness of breath (ICD-10 - R06.02) Feb, Subacute cough (ICD-10 - R05.2) [employer] Other 04-19-2023 Instructions* Patient Instructions* Cherelle Medina APRN.ICT SYSTEMS TEST ENGINEER - 03/05/2023 9:47 AM EDT Images from the original note were not included. Thank you for seeing me in clinic today. As we discussed, my recommendations are as follows: 1.Colonoscopy If you have any questions about the above treatment plan, please do not hesitate to call the officeor send me a If You Canhart message. Bowel Preparation Instructions for: Miralax-Gatorade Preparations [...] If you do not have a responsible vacuum truck driver (family member or friend) withyou to take you home, your exam cannot be done with sedation and will be cancelled. Please bring a list of all of your current medications, including any Ffwl-pre-Lzueweb medications with you. Medications If you take [...] your exam. 2 10/2019 documented in this encounterSumma Health Akron Campus04-19-2023 History and physical note * Cherelle Medina APRN.CNP - 03/05/2023 9:40 AM EDT Consultation requested by Dr. Ernesto Chacko for an opinion regarding Rectal Bleeding. My final recommendations will be communicated back to the requesting physician by way of shared medical record or fax. REASON FOR VISIT: Rectal Bleeding HPI: Isabel Stover is a 62 year old female who [...] Abs Lymph 1.00 - 4.00 k/uL 1.31 [place]% % 11.1 Abs [place] <0.87 k/uL 0.50 Eosin% % 3.1 Abs [...] 150 mg by mouth daily at bedtime. [id number]-[id number]-DJG-FISH OIL-L.CASEI ORAL Take by mouth once daily. [...] affect, appropriate insight and judgement ASSESSMENT/PLAN: Ms. Stover is a 62 year old female with [...] -radiation proctitis?? This note was dictated using Smart Gardener speech recognition software and may contain some errors that were a result of the program not accurately transcribing what was dictated. Cherelle Medina APRN.MONSERRAT documented in this encounterSumma Health [facility] Campus03-10-2023 Evaluation note* Encounter Date Diagnosis Assessment Notes Treatment Notes Treatment Clinical Notes Jan, Acute bronchitis due to other specified organisms (ICD-10 - J20.8) Instructed to use Robitussin or Mucinex for cough, saline or Flonase NS for congestion, Tylenol for pain and fever. [employer] Other 03-06-2023 Evaluation note* Encounter Date Diagnosis [...] weeks for the cough to go away [employer] Other 02-17-2023 History of Present illness Narrative* Henry Ramos MD - 01/03/2023 3:20 PM EST Gynecologic Oncology [facility] Follow up visit Date of service: 01/03/2023 PROBLEM/CC: Isabel Stover presents for follow-up of endometrial cancer. HPI: Ms. Stover is a 62 year old female with [...] differentiation, FIGO grade 2. Neg LVSI, 13% [place] pT1a ([place]): Tumor limited to endometrium or invades less than 1/2 of the myometrium 05/25/2021 Vaginal biopsy Vagina, biopsy - Consistent with endometrioid adenocarcinoma (see comment). GZ/ka 05/28/2021 COMMENT The tumor cells are diffusely and strongly positive for immunohistochemical stain for [place] 8, supporting the above diagnosis. The patient [...] 150 mg by mouth daily at bedtime. RTXA5-NMN-QOW-FISH OIL-L.CASEI ORAL Take by mouth once daily. Lactobac no.41/Bifidobact no.7 (PROBIOTIC-10 ORAL) Take by mouth once daily. MULTIVITAMIN TAB Take one(1) tablet daily. B COMPLEX VITAMINS CAP Take one(1) capsule daily. CALCIUM CARBONATE-VIT D3-MINERALS 600 MG-400 UNIT TAB Take 1 tablet by mouth twice daily. INTERVAL HISTORY: Isabel Stover reports that she feels fine. She presents [...] has a trip planned to [facility] next week for 10 days. PHYSICAL EXAM: [...] or swelling. Deep tendon reflexes are present Technology Infusion Specialist for exam: Shelli Lambrinides, [employer].ICT SYSTEMS TEST ENGINEER RESULTS: CA 125 (U/mL) Date Value 12/13/2021 9 06/04/2021 8 07/12/2019 15 No new results to review ASSESSMENT & PLAN: 05/25/2021-Dee Dee Carter APRN.ICT SYSTEMS TEST ENGINEER [place] endometrioid type endometrial adenocarcinoma, FIGO grade [...] symptoms - Referral to Dr. Sita Naidu [facility] - Mammogram gets this done locally, will review with PCP - Colonoscopy due, will review with PCP 05/30/2021- Dee Dee Carter APRN.ICT SYSTEMS TEST ENGINEER (distance health visit) 61 yo female with [...] her today already. Test vaginal lesion for ER/NM receptors See me September 19 for post [...] hyperthyroidism, advised follow up with PCP and Catcher Plug. Ernesto Chacko APRN.ICT SYSTEMS TEST ENGINEER 03/13/2022 Recurrent Endometrial cancer with recurrence in [...] ferritin. Recommend she start following with a F assembler golf wood head for her rectal bleeding. We will assistwith [...] my encounter with the patient today. Electronically signed:Abena Markhamibbernie, Henry Ramos MD, Physician, January 03, 2023 4:37 PM documented in this encounterSumma Health Akron Campus02-08-2023 Miscellaneous Notes* Telephone Encounter - Aretha [...] 2:19 PM EST ----- Message from Jadyn Carrillo sent at 12/25/2022 12:04 PM EST ----- Regarding: Rachel Patient bleeding and clotting almost daily since Colonoscopy. September was the Colonoscopy. Concerned and would like to know if she should schedule an appointment. [phone] documented in this encounterSumma Health Akron Campus11-10-2022 Nurse Note* Francisca Gómez RN - [...] RN In Department: GASTROENTEROLOGY documented in this encounterSumma Health Akron Campus11-10-2022 Miscellaneous Notes* Sedation Documentation - Aretha Deluna RN - 09/26/2022 12:00 PM EST Grounding pad placed at right flank. Skin Intact. LOT#[id number]. documented in this encounterSumma Health Akron Campus11-03-2022 Miscellaneous Notes* Telephone Encounter - Kelly Ch MA - 09/19/2022 3:49 PM EDT Attempted to reach the patient at the contact number that they provided [phone] (home) . Unable to speak with patient [...] Number to call with questions or concerns [phone] Number to call to cancel their procedure [phone] Kelly Ch MA documented in this encounterSumma Health Akron Campus09-21-2022 Instructions* Patient Instructions* Ernesto Chacko APRN.MONSERRAT [...] If you do not have a responsible vacuum truck driver (family member or friend) with [...] your exam. 2 10/2019 documented in this encounterSumma Health Akron Campus09-21-2022 History of Present illness Narrative* Henry Ramos MD - 08/07/2022 3:20 PM EDT Gynecologic Oncology [facility] Follow up visit Date of service: 08/07/2022 PROBLEM/CC: Isabel Stover presents for follow-up of endometrial cancer. HPI: Ms. Stover is a 61 year old female with [...] differentiation, FIGO grade 2. Neg LVSI, 13% [place] pT1a ([place]): Tumor limited to endometrium or invades less than 1/2 of the myometrium 05/25/2021 Vaginal biopsy Vagina, biopsy - Consistent with endometrioid adenocarcinoma (see comment). GZ/ka 05/28/2021 COMMENT The tumor cells are diffusely and strongly positive for immunohistochemical stain for [place] 8, supporting the above diagnosis. The patient [...] 150 mg by mouth daily at bedtime. [id number]-[id number]-DLI-FISH OIL-L.CASEI ORAL Take by mouth once daily. [...] Reported on 03/13/2022 ) INTERVAL HISTORY: Isabel Stover, 62 y/o female, presents alone today for [...] groin. LOWER EXTREMITIES: No swelling or edema. Technology Infusion Specialist for exam: Promise Mclaughlin MA RESULTS: 05/25/2021 - VAGINAL BIOPSY Vagina, biopsy - Consistent with endometrioid adenocarcinoma (see comment). GZ/ka 05/28/2021 COMMENT The tumor cells are diffusely and strongly positive for immunohistochemical stain for [place] 8, supporting the above diagnosis. The patient [...] dedicated report for findings in the abdomen Wedding Photographer (topogram) images: None CA 125 (U/mL) Date Value 12/13/2021 9 06/04/2021 8 07/12/2019 15 ASSESSMENT & PLAN: 05/25/2021-Dee Dee Carter APRN.ICT SYSTEMS TEST ENGINEER [place] endometrioid type endometrial adenocarcinoma, FIGO grade [...] symptoms - Referral to Dr. Sita Naidu [facility] - Mammogram gets this done locally, will review with PCP - Colonoscopy due, will review with PCP 05/30/2021- Dee Dee Carter APRN.ICT SYSTEMS TEST ENGINEER (distance health visit) 61 yo female with [...] her today already. Test vaginal lesion for ER/NM receptors See me September 19 for post [...] hyperthyroidism, advised follow up with PCP and Catcher Plug. Ernesto Chacko APRN.ICT SYSTEMS TEST ENGINEER 03/13/2022 Recurrent Endometrial cancer with recurrence in [...] 07, 2022 4:19 PM documented in this encounterSumma Health Akron Campus04-27-2022 History of Present illness Narrative* Henry Ramos MD - 03/13/2022 2:50 PM EDT Gynecologic Oncology [facility] Follow up visit Date of service: 03/13/2022 PROBLEM/CC: Isabel Stover presents for follow-up of endometrial cancer. HPI: Ms. Stover is a 61 year old female with [...] differentiation, FIGO grade 2. Neg LVSI, 13% [place] pT1a ([place]): Tumor limited to endometrium or invades less than 1/2 of the myometrium 05/25/2021 Vaginal biopsy Vagina, biopsy - Consistent with endometrioid adenocarcinoma (see comment). GZ/ka 05/28/2021 COMMENT The tumor cells are diffusely and strongly positive for immunohistochemical stain for [place] 8, supporting the above diagnosis. The patient [...] 150 mg by mouth daily at bedtime. [id number]-FISH OIL-L.CASEI ORAL Take by mouth once daily. [...] absent LOWER EXTREMITIES: No swelling or edema. Technology Infusion Specialist for exam: Modlo RESULTS: 05/25/2021 - VAGINAL BIOPSY Vagina, biopsy - Consistent with endometrioid adenocarcinoma (see comment). GZ/ka 05/28/2021 COMMENT The tumor cells are diffusely and strongly positive for immunohistochemical stain for [place] 8, supporting the above diagnosis. The patient [...] dedicated report for findings in the abdomen Wedding Photographer (topogram) images: None CA 125 (U/mL) Date Value 12/13/2021 9 06/04/2021 8 07/12/2019 15 ASSESSMENT & PLAN: 05/25/2021-Dee Dee Carter APRN.ICT SYSTEMS TEST ENGINEER IA endometrioid type endometrial adenocarcinoma, FIGO grade [...] symptoms - Referral to Dr. Sita Naidu [facility] - Mammogram gets this done locally, will review with PCP - Colonoscopy due, will review with PCP 05/30/2021- Dee Dee Carter APRN.ICT SYSTEMS TEST ENGINEER (distance health visit) 61 yo female with [...] her today already. Test vaginal lesion for ER/NM receptors See me September 19 for post treatment exam. 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 Ernesto Chacko APRN.ICT SYSTEMS TEST ENGINEER 03/13/2022 Recurrent Endometrial cancer with recurrence in [...] Past Histories independently gathered by the clinical desktop support engineer and the remaining scribed note accurately describes my personal service to the patient. [facility] History of Present illness Narrative* Leigh Romo RN - 12/13/2021 9:00 AM EST Radiology Service Progress Note DATE OF SERVICE: December 13, 2021 TIME: 9:10 AM PATIENT WEIGHT: 144 LBS PATIENT IDENTITY VERIFICATION COMPLETED USING TWO (2) STANDARD IDENTIFIERS: Name and Date of confirmed by patient verbally. FALL SCREENING: Has the patient had 2 falls in the last year or 1 fall with injury or currently using an Ambulatory Assistive Device (Walker, Cane, Wheelchair, Crutches, etc.)? No PATIENT GENDER DATA: Female. status: : No status: NO. ALLERGIES: Reviewed and unchanged CONTRAST ALLERGY: No EXAM: CT -CONTRAST INDUCED NEPHROPATHY RISK FACTORS: Patient age > 60 years CREATININE: Creatinine Date Value Ref Range Status 06/04/2021 0.72 0.58 - 0.96 mg/dL Final 08/12/2019 0.83 0.58 - 0.96 mg/dL Final 07/12/2019 0.86 0.58 - 0.96 mg/dL Final eGFR-All Other Races Date Value Ref Range Status 06/04/2021 >60 . Final Comment: eGFR (Estimated GFR) Units of measure: mL/min/1.73 meters squared eGFR is derived from the reexpressed MDRD Study equation using the following parameters: serum creatinine, age, gender and race. The creatinine assay has been calibrated to be traceable to IDMS. An eGFR <60 mL/min/1.73m2 for >3 months is consistent with chronic kidney disease. Refer to KDOQI guidelines for clinical interpretation. In patients with unstable renal function, e.g. those with acute kidney injury, the eGFR may not accurately reflect actual GFR. eGFR- Date Value Ref Range Status 06/04/2021 >60 Final P.O.C.T. RESULTS: POC done: Yes, See Lab Tab December 13, 2021 TREATMENT: No Hydration needed. IV SITE: Ambulatory: A peripheral IV was started in the Right antecubital site with a Angio cath: 20 gauge. IV SITE APPEARANCE: Clean,Dry and Intact SIGNATURE: Leigh Romo RN PATIENT NAME: Isabel Stover DATE: December 13, 2021 TIME: 9:10 AM * Gibson Bob RT(R) - 12/13/2021 9:00 AM EST Radiology Service Progress Note PATIENT NAME: Isabel Stover DATE OF SERVICE: December 13, 2021 TIME: 9:35 AM PATIENT IDENTITY VERIFICATION COMPLETED USING TWO [...] Applicable RADIOLOGY DEPARTMENT: CT; Exam(s) Completed: Chest Abdomen Pelvis PERIPHERAL IV DATA: Site assessment: Clean,Dry and Intact, Site disposition Discontinued SIGNED BY: RT Chiki(R) December 13, 2021 9:35 AM documented in [facility]* Diagnosis Dizziness- Primary Dizziness and giddiness Dehydration documented in this encounter [employer] Phone: evaluation note* Diagnosis Recurrent carcinoma of endometrium (HCC)- Primary Malignant neoplasm of corpus uteri, except isthmus Vaginal atrophy Postmenopausal atrophic vaginitis Foreshortening of vagina [facility] Diagnosis Recurrent carcinoma of endometrium (HCC)- Primary Malignant neoplasm of corpus uteri, except isthmus Radiation proctitis Other specified disorder of rectum and anus Foreshortening of vagina Endometrial cancer (HCC) Malignant neoplasm of corpus uteri, except isthmus Vaginal atrophy Postmenopausal atrophic vaginitis Rectal bleeding Hemorrhage of rectum and anus [facility]* Diagnosis History of thyroid disease- Primary Personal history of other endocrine, metabolic, and immunity disorders Rectal bleeding Hemorrhage of rectum and anus documented [facility]* Diagnosis Recurrent carcinoma of endometrium (HCC)- Primary Malignant neoplasm of corpus uteri, except isthmus Radiation proctitis Other specified disorder of rectum and anus Blood per rectum Hemorrhage of rectum and anus documented in this encounter [facility] noteNo [employer] [place] [employer] Other Evaluation note* Diagnosis Rectal bleeding- Primary Hemorrhage of rectum and anus documented [facility]* Diagnosis Radiation proctitis- Primary Other specified disorder of rectum and anus documented [facility]* Diagnosis Dyspnea, unspecified type- Primary documented in [facility]* Diagnosis 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) documented [facility]* Diagnosis Radiation proctitis- Primary Other specified disorder of rectum and anus documented [facility]* Diagnosis Endometrial cancer (HCC)- Primary Malignant neoplasm of corpus uteri, except isthmus Radiation proctitis Other specified disorder of rectum and anus Radiation proctitis Other specified disorder of rectum and anus documented [facility]* Diagnosis Radiation proctitis- Primary Other specified disorder of rectum and anus documented [facility]* Diagnosis ILD (interstitial lung disease) (HCC)- Primary Postinflammatory pulmonary fibrosis Radiation proctitis Other specified disorder of rectum and anus documented [facility] this [facility]* Diagnosis ILD (interstitial lung disease) (HCC) Postinflammatory pulmonary fibrosis Radiation proctitis Other specified disorder of rectum and anus documented [facility]* Diagnosis Interstitial pulmonary disease (HCC) Postinflammatory pulmonary fibrosis Radiation proctitis Other specified disorder of rectum and anus documented [facility]* Diagnosis Dyspnea and respiratory abnormalities- Primary Other dyspnea and respiratory abnormality Calcified nodule Localized superficial swelling, mass, or lump Iron deficiency anemia due to chronic blood loss Iron deficiency anemia secondary to blood loss (chronic) Radiation proctitis Other specified disorder of rectum and anus documented [facility]* Diagnosis Dyspnea, unspecified type Radiation proctitis Other specified disorder of rectum and anus documented [facility]* Diagnosis Pre-op evaluation- Primary Preoperative examination, unspecified Radiation proctitis Other specified disorder of rectum and anus documented in this encounter [facility] note* Diagnosis Interstitial pulmonary disease (HCC) Postinflammatory pulmonary fibrosis [facility]* Diagnosis Radiation proctitis- Primary Other specified disorder of rectum and anus Endometrial cancer (HCC) Malignant neoplasm of corpus uteri, except isthmus documented in this encounter [facility]* Diagnosis Onset Date Resolution Status Graves disease acute Hypertension acute Thyrotoxicosis [facility] Work Phone: Evaluation note* Diagnosis Preoperative examination- Primary Preoperative examination, unspecified Endometrial cancer (HCC) Malignant neoplasm of corpus uteri, except isthmus Essential hypertension Unspecified essential hypertension History of thyroid disease Personal history of other endocrine, metabolic, and immunity disorders Vaginal bleeding- Primary Other specified noninflammatory disorder of vagina Screening for vaginal cancer Special screening for malignant neoplasms, vagina History of endometrial cancer Personal history of malignant neoplasm of other parts of uterus Radiation proctitis Other specified disorder of rectum and anus documented in this encounter [facility] note* Diagnosis Preoperative examination- Primary Preoperative examination, unspecified Endometrial cancer (HCC) Malignant neoplasm of corpus uteri, except isthmus Essential hypertension Unspecified essential hypertension History of thyroid disease Personal history of other endocrine, metabolic, and immunity disorders Malignant neoplasm of endometrium (HCC) Malignant neoplasm of corpus uteri, except isthmus documented in this encounter [facility] note* Diagnosis Preoperative examination- Primary Preoperative examination, unspecified Endometrial cancer (HCC) Malignant neoplasm of corpus uteri, except isthmus Essential hypertension Unspecified essential hypertension History of thyroid disease Personal history of other endocrine, metabolic, and immunity disorders NO SHOW- Primary documented in this encounter [facility] note* Diagnosis Seborrheic keratosis- Primary Melanocytic nevus of trunk Benign neoplasm of skin of trunk, except scrotum [facility]* Diagnosis History of right hip replacement- Primary Acute pain of right hip Lumbar radiculopathy, right documented in this encounter [facility] HealthcareEvaluation noteNo assessment information availableFirSalem Regional [facility] Work Phone: Hisggtr general Narrative - Reported* Type Description Date Medical History menopause Medical History endometrial cancer hx Surgical History Bilateral Knee Scope Surgical History Bilateral Shoulder Scope Surgical History Bilateral Carpal Tunnel Surgical History x 3 Surgical History Pituatary Tumor Surgical History hysterectomy Surgical History right thumb excision of trapezi um 09/14/2020 [employer] Other Hisziad general Narrative - Reported* Type Description Date Medical History menopause Medical History endometrial cancer hx Surgical History Bilateral Knee Scope Surgical History Bilateral Shoulder Scope Surgical History Bilateral Carpal Tunnel Surgical History x 3 Surgical History Pituatary Tumor Surgical History hysterectomy Surgical History right thumb excision of trapezi um 09/14/2020 Hospitalization History see surgical history [employer] Other Hiskwng general Narrative - Reported* Type Description Date Medical History menopause Medical History endometrial cancer hx Medical History Dilated Cardiomyopathy Surgical History Bilateral Knee Scope Surgical History Bilateral Shoulder Scope Surgical History Bilateral Carpal Tunnel Surgical History x 3 Surgical History Pituatary Tumor Surgical History hysterectomy Surgical History right thumb excision of trapezi um 09/14/2020 Hospitalization History see surgical history [employer] Other Hisxorr general Narrative - Reported* Type Description Date Medical History menopause Medical History endometrial cancer hx Medical History Dilated Cardiomyopathy Surgical History Bilateral Knee Scope Surgical History Bilateral Shoulder Scope Surgical History Bilateral Carpal Tunnel Surgical History x 3 Surgical History Pituatary Tumor Surgical History hysterectomy Surgical History right thumb excision of trapezi um 09/14/2020 Surgical History Sigmoidoscopy 08/2023 Hospitalization History see surgical history [employer] Other Hisamsb general Narrative - Reported* Type Description Date [...] Sigmoidoscopy 08/2023 Hospitalization History see surgical history [employer] Other Hospital Discharge instructions* Attachments The following attachments cannot be sent through Care Everywhere. * Dehydration (Uzbek) * Oral Rehydration (Uzbek) [facility] this [facility]: reason for referral (narrative)* Outpatient Procedure (Routine) - Closed Specialty Diagnoses / Procedures Referred By Contac t Referred To Contact [facility] Diagnoses Rectal bleeding Procedures COLONOSCOPY SCREENING COLONOSCOPY FLX DX W/COLLJ SPEC WHEN PFRMD Ernesto Chacko APRN.CNP [address] [place] [address] [facility] Disease [address] [address] Referral ID Status Reason Start Date Expiration Date V isits Requested Visits Authorized [id number] Closed Auto-Generate d Referral 08/07/2022 08/07/2023 1 1 [facility] for referral (narrative)* Outpatient Procedure (Routine) - Pending Review Specialty Diagnoses / Procedures Referred By Contac t Referred To Contact [facility] Diagnoses Rectal bleeding Procedures COLONOSCOPY (THERAPEUTIC) COLONOSCOPY FLX ABLATION TUMOR POLYP/OTHER Cherelle Mendoza APRN.ICT SYSTEMS TEST ENGINEER [address] [place] [address] [place] [address] [facility] Disease [address] [address] Referral ID Status Reason Start Date Expiration Date Visits Requested Visits Authorized [id number] Pending Review Auto-Generat ed Referral 03/05/2023 03/05/2024 1 1 [facility] for referral (narrative)* Outpatient Procedure (Routine) - Authorized Specialty Diagnoses / Procedures Referred By Contac t Referred To Contact [facility] Diagnoses Other secondary pulmonary hypertension (HCC) Procedures ECHO ECHO TTHRC R-T 2D W/WOM-MODE COMPL SPEC&COLR D Mike Presley MD [address] [place] [address] [facility] [place] [address] [place] [address] Referral ID Status Reason Start Date Expiration Date Visits Requested Visits Authorized [id number] Authorized Auto-Generat ed Referral 06/27/2023 06/26/2024 1 1 * Diagnostic Procedure Only (Routine) - Pending Review Specialty Diagnoses / Procedures Referred By Kelly alberts Referred To Contact [facility]CULAR [facility] Diagnoses Other secondary pulmonary hypertension (HCC) Procedures NM LUNG VENT / PERF VQ PULMONARY VENTILATION & PERFUSION IMAGING Mike Presley MD [address] [place], [place] [phone] [facility] Functional [facility] [address] [place] [address] Referral ID Status Reason Start Date Expiration Date Visits Requested Visits Authorized [id number] Pending Review Auto-Generat ed Referral 06/27/2023 07/26/2024 1 1 * Outpatient Procedure (Routine) - Pending Review Specialty Diagnoses / Procedures Referred By Kelly alberts Referred To Contact [facility] Diagnoses Interstitial pulmonary disease (HCC) Procedures LUNG VOLUMES Mike Presley MD [address] [place] [address] [facility] [place] [address] [place], [place] [id number] Referral ID Status Reason Start Date Expiration Date Visits Requested Visits Authorized [id number] Pending Review Auto-Generat ed Referral 06/27/2023 07/26/2024 1 1 * Outpatient Procedure (Routine) - Authorized Specialty Diagnoses / Procedures Referred By Kelly alberts Referred To [facility] Diagnoses Interstitial pulmonary disease (HCC) Procedures LUNG DIFFUSION CAPACITY (DLCO) DIFFUSING CAPACITY Mike Presley MD [address] [address] [facility] [place] [address] [place] [address] Referral ID Status Reason Start Date Expiration Date Visits Requested Visits Authorized [id number] Authorized Auto-Generat ed Referral 06/27/2023 07/26/2024 1 1 * MRI/CT (Routine) - Authorized Specialty Diagnoses / Procedures Referred By Contac t Referred To Contact CT IMAGING Diagnoses Interstitial pulmonary disease (HCC) Procedures CT CHEST WO IVCON DIAGNOSTIC COMPUTED TOMOGRAPHY THORAX W/O CNTRST Mike Presley MD [address] [place] [address] Ct Imaging Referral ID Status Reason Start Date Expiration Date Visits Requested Visits Authorized [id number] Authorized Auto-Generat ed Referral 06/27/2023 07/26/2024 1 1 [facility] for referral (narrative)* Outpatient Procedure (Routine) - Authorized Specialty Diagnoses / Procedures Referred By Contac t Referred To Contact [facility] Diagnoses ILD (interstitial lung disease) (HCC) Procedures SPIROMETRY BASELINE ONLY SPMTRY W/VC EXPIRATORY BERNIE W/WO MXML VOL VNTJ Mike Presley MD [address] [place] [address] [facility] [place] [address] [place], [place] [id number] Referral ID Status Reason Start Date Expiration Date Visits Requested Visits Authorized [id number] Authorized Auto-Generat ed Referral 09/24/2024 1 1 [facility] for visit Narrative* Outpatient Procedure (Routine) - Closed Specialty Diagnoses / Procedures Referred By Contac t Referred To Contact [facility] Diagnoses Rectal bleeding Procedures COLONOSCOPY SCREENING COLONOSCOPY FLX DX W/COLLJ SPEC WHEN PFRMD Ernesto Chacko APRN.ICT SYSTEMS TEST ENGINEER [address] [place] [id number] [facility] [place] [address] [place] [address] Referral ID Status Reason Start Date Expiration Date V isits Requested Visits Authorized [id number] Closed Auto-Generate d Referral 08/07/2022 08/07/2023 1 1 [facility] Summary Purpose Family History Relationship Condition Age at Onset Recorded Date/T sebastian mother Disorder of thyroid Unknown Dementia Unknown grandparent Disorder of thyroid Unknown father Osteoarthritis Unknown Advance Directives Documents on File Type Date Recorded Patient Quality Assurance Analyst 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 Advance Directive(s) 08/12/2019 10:47 AM Advance Directive(s) 07/28/2019 9:20 AM Documents on File Type Date Recorded Patient Quality Assurance Analyst 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 Advance Directive(s) 07/28/2019 9:20 AM Documents on File Type Date Recorded Patient Quality Assurance Analyst 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 Advance Directive(s) 07/28/2019 9:20 AM Advance Directive Response Recorded Date/ Time Advance Directives No August 18, 2018 2:26pm Advance Directive Response Recorded Date/ Time Advance Directives No August 18, 2018 1:26pm Reason for Referral Specialty Diagnoses / Procedures Referred By Kelly t Referred To Contact Gastroenterology Diagnoses Rectal bleeding Procedures CONSULT TO GASTROENTEROLOGY OFFICE/OUTPATIENT [facility] MDM 60-74 MINUTES Ernesto Chacko, [employer].ICT SYSTEMS TEST ENGINEER [address] [place] [address] Referral ID Status Reason Start Date Expiration Date Visits Requested Visits Authorized [id number] Authorized PCP Requested Referral 08/07/2022 08/07/2023 1 1 Specialty Diagnoses / Procedures Referred By Kelly t Referred To Contact [facility] Diagnoses Rectal bleeding Procedures COLONOSCOPY SCREENING COLONOSCOPY FLX DX W/COLLJ SPEC WHEN PFRMD Ernesto Chacko, [employer].ICT SYSTEMS TEST ENGINEER [address] [place] [address] [facility] [place] [address] [place] [address] Referral ID Status Reason Start Date Expiration Date Visits Requested Visits Authorized [id number] Pending Review Auto-Generat ed Referral 08/07/2022 08/07/2023 1 1 Specialty Diagnoses / Procedures Referred By Kelly t Referred To Contact CT IMAGING Diagnoses Interstitial pulmonary disease (HCC) Procedures CT CHEST WO IVCON DIAGNOSTIC COMPUTED TOMOGRAPHY THORAX W/O CNTRST Mike Presley MD [address] [place] [address] Ct Imaging [place] [address] Referral ID Status Reason Start Date Expiration Date V isits Requested Visits Authorized [id number] Closed Auto-Generate d Referral 06/27/2023 07/26/2024 1 1 Reason Iron deficiency anem ia Diagnosis 1 Iron deficiency anem ia due to chronic blood loss (D50.0) Referral Organization [facility] Medical linjono Referring Provider First Name Roland Referring Provider Last Name Maggie Referring Provider Specialty Internal Me dicine Referred Organization [facility] Referred Provider NAJMA BARBOUR Referred Address [address] [place], [place],[address] Referred Provider Specialty Hematology Referral Priority Routine General Notes Mrs. Stover is being r eferred for symptomatic iron deficiency anemia. 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 She has completed endoscopic treatment for her chronic bleeding and has received 2 units of PRBC [facility] her [facility]. I am referring Mrs. Stover for IV Fe therapy Clinical Notes Include latest CBC, Fe, TIBC, Ferritin, percent iron saturation Specialty Diagnoses / Procedures Referred By Kelly t Referred To Contact CT IMAGING Diagnoses Malignant neoplasm of endometrium (HCC) Procedures CT CHEST W IVCON CAT SCAN OF CHEST CONTRAST Ernesto Chacko, BETTY.ICT SYSTEMS TEST ENGINEER [address] [place] [address] Ct Imaging [facility] Referral ID Status Reason Start Date Expiration Date V isits Requested Visits Authorized [id number] Closed Auto-Generate d Referral 11/28/2021 01/12/2022 1 1 Specialty Diagnoses / Procedures Referred By Contac t Referred To Contact CT IMAGING Diagnoses Malignant neoplasm of endometrium (HCC) Procedures CT ABD/PEL W IVCON CT ABD & PELVIS W/CONTRAST Ernesto Chacko, BETTY.ICT SYSTEMS TEST ENGINEER [address] [place] [address] Ct Imaging [facility] Referral ID Status Reason Start Date Expiration Date V isits Requested Visits Authorized [id number] Closed Auto-Generate d Referral 11/28/2021 01/12/2022 1 1 Medications Administered Section Inactive Administered Medications - [...] Given 09/26/2022 11:40 AM EST 3 mg Chief Complaint and Reason for Visit Chief Complaint sore throat 1 month Reason for Visit Graves disease Hypertension Thyrotoxicosis Chief Complaint Admit Date cough, ear pain, chest congestion Edgardo parks 2024 9:10am Additional Source Comments INFORMATION SOURCE (unrecogn ized section and content) DATE CREATED AUTHOR 11/29/2019 [facility] DATE CREATED AUTHOR AUTHOR'S ORGANIZ ATION 11/23/2021 Nancy blanchard DATE CREATED AUTHOR AUTHOR'S ORGANIZ ATION 03/20/2022 [facility] DATE CREATED AUTHOR AUTHOR'S ORGANIZ ATION 03/28/2023 [facility] DATE CREATED AUTHOR AUTHOR'S ORGANIZ ATION 08/25/2023 [facility] DATE CREATED AUTHOR AUTHOR'S ORGANIZ ATION 08/23/2024 [facility] DATE CREATED AUTHOR AUTHOR'S ORGANIZ ATION 11/08/2024 [facility] Special[facility] EPIC Reason for Visit (unrecogniz [...] NEW HIGH MDM 60-74 MINUTES Ernesto Chacko APRN.ICT SYSTEMS TEST ENGINEER [address] [place] [address] Referral ID Status Reason Start Date Expiration Date V isits Requested Visits Authorized [id number] Closed PCP Requested Referral 08/07/2022 08/07/2023 1 1 Reason Comments Spirometry Specialty Diagnoses / Procedures Referred By Contac t Referred To Contact [facility] Diagnoses Dyspnea, unspecified type Procedures SPIROMETRY WITH DILATOR IF OBSTRUCTED BRNCDILAT RSPSE SPMTRY PRE&POST-BRNCDILAT ADMN Pedro Rodarte MD [address] [place] [address] [facility] [place] [address] [place] [address] Referral ID Status Reason Start Date Expiration Date V isits Requested Visits Authorized [id number] Closed Auto-Generate d Referral 05/23/2023 06/21/2024 1 1 Reason Comments New Reason Comments New Radiation proctitis Specialty Diagnoses / Procedures Referred By Contac t Referred To Contact Colon and Rectal Surgery Diagnoses Radiation proctitis Procedures CONSULT TO COLO-RECTAL SURGERY OFFICE/OUTPATIENT [facility] 60-74 MINUTES Shelli Villarreal, [employer] SYSTEMS TEST ENGINEER [address] [place] [address] [place] DO [address] [place] [address] Referral ID Status Reason Start Date Expiration Date V isits Requested Visits Authorized [id number] Closed PCP Requested Referral 05/16/2023 05/15/2024 1 1 Reason Comments Patient Update Specialty Diagnoses / Procedures Referred By Contac t Referred To Contact [facility] Diagnoses ILD (interstitial lung disease) (HCC) Procedures SPIROMETRY BASELINE ONLY SPMTRY W/VC EXPIRATORY BERNIE W/WO MXML VOL VNTJ Lessa Cisneros Jay, Mike, MD [address] [place] [address] [facility] [place] [address] [place] [address] Referral ID Status Reason Start Date Expiration Date V isits Requested Visits Authorized [id number] Closed Auto-Generate d Referral 08/26/2023 09/24/2024 1 1 Specialty Diagnoses / Procedures Referred By Contac t Referred To Contact [facility] Diagnoses Interstitial pulmonary disease (HCC) Procedures LUNG DIFFUSION CAPACITY (DLCO) DIFFUSING CAPACITY Mike Presley MD [address] [place] [address] [place] [address] Referral ID Status Reason Start Date Expiration Date V isits Requested Visits Authorized [id number] Closed Auto-Generate d Referral 06/27/2023 07/26/2024 1 1 Reason Comments Radio Gen A21 Reason Comments Pre-Op Exam Specialty Diagnoses / Procedures Referred By Contac t Referred To Contact CT [facility] Diagnoses Interstitial pulmonary disease (HCC) Procedures CT CHEST WO IVCON DIAGNOSTIC COMPUTED TOMOGRAPHY THORAX W/O CNTRST Mike Presley MD [address] [place], [place] [id number] [facility] [place] [address] Referral ID Status Reason Start Date Expiration Date V isits Requested Visits Authorized [id number] Closed Auto-Generate d Referral 06/27/2023 07/26/2024 1 1 Reason Comments Radiology [place] Specialty Diagnoses / Procedures Referred By Contac t Referred To Contact CT IMAGING Diagnoses Malignant neoplasm of endometrium (HCC) Procedures CT CHEST W IVCON CAT SCAN OF CHEST CONTRAST Ernesto Chacko, [employer] TEST ENGINEER [address] [place] [id number] [facility] [place] [address] Referral ID Status Reason Start Date Expiration Date V isits Requested Visits Authorized [id number] Closed Auto-Generate d Referral 11/28/2021 01/12/2022 1 1 Reason Comments Skin Check Reason Comments Post-op Scheduled Active and Recently Administ ered Medications [...] or prosecute any alcohol or drug abuse patient.[facility] the event this information is protected by the Federal Confidentiality of Alcohol and Drug Abuse Patient Records regulations: The Federal rules restrict any use of the information to criminally investigate or prosecute any alcohol or drug abuse patient.[facility] CampusIn the event this information is protected by the Federal Confidentiality of Alcohol and Drug Abuse Patient Records regulations: The Federal rules restrict any use of the information to criminally investigate or prosecute any alcohol or drug abuse patient.[facility] CampusIn the event this information is protected by the Federal Confidentiality of Alcohol and Drug Abuse Patient Records regulations: The Federal rules restrict any use of the information to criminally investigate or prosecute any alcohol or drug abuse patient.[facility] CampusIn the event this information is protected by the Federal Confidentiality of Alcohol and Drug Abuse Patient Records regulations: The Federal rules restrict any use of the information to criminally investigate or prosecute any alcohol or drug abuse patient.[facility] CampusIn the event this information is protected by the Federal Confidentiality of Alcohol and Drug Abuse Patient Records regulations: The Federal rules restrict any use of the information to criminally investigate or prosecute any alcohol or drug abuse patient.[facility] CampusIn the event this information is protected by the Federal Confidentiality of Alcohol and Drug Abuse Patient Records regulations: The Federal rules restrict any use of the information to criminally investigate or prosecute any alcohol or drug abuse patient.[facility] CampusIn the event this information is protected by the Federal Confidentiality of Alcohol and Drug Abuse Patient Records regulations: The Federal rules restrict any use of the information to criminally investigate or prosecute any alcohol or drug abuse patient.[facility] CampusIn the event this information is protected by the Federal Confidentiality of Alcohol and Drug Abuse Patient Records regulations: The Federal rules restrict any use of the information to criminally investigate or prosecute any alcohol or drug abuse patient.[facility] CampusIn the event this information is protected by the Federal Confidentiality of Alcohol and Drug Abuse Patient Records regulations: The Federal rules restrict any use of the information to criminally investigate or prosecute any alcohol or drug abuse patient.[facility] CampusIn the event this information is protected by the Federal Confidentiality of Alcohol and Drug Abuse Patient Records regulations: The Federal rules restrict any use of the information to criminally investigate or prosecute any alcohol or drug abuse patient.[facility] CampusIn the event this information is protected by the Federal Confidentiality of Alcohol and Drug Abuse Patient Records regulations: The Federal rules restrict any use of the information to criminally investigate or prosecute any alcohol or drug abuse patient.[facility] CampusIn the event this information is protected by the Federal Confidentiality of Alcohol and Drug Abuse Patient Records regulations: The Federal rules restrict any use of the information to criminally investigate or prosecute any alcohol or drug abuse patient.[facility] CampusIn the event this information is protected by the Federal Confidentiality of Alcohol and Drug Abuse Patient Records regulations: The Federal rules restrict any use of the information to criminally investigate or prosecute any alcohol or drug abuse patient.[facility] CampusIn the event this information is protected by the Federal Confidentiality of Alcohol and Drug Abuse Patient Records regulations: The Federal rules restrict any use of the information to criminally investigate or prosecute any alcohol or drug abuse patient.[facility] CampusIn the event this information is protected by the Federal Confidentiality of Alcohol and Drug Abuse Patient Records regulations: The Federal rules restrict any use of the information to criminally investigate or prosecute any alcohol or drug abuse patient.[facility] CampusIn the event this information is protected by the Federal Confidentiality of Alcohol and Drug Abuse Patient Records regulations: The Federal rules restrict any use of the information to criminally investigate or prosecute any alcohol or drug abuse patient.[facility] CampusIn the event this information is protected by the Federal Confidentiality of Alcohol and Drug Abuse Patient Records regulations: The Federal rules restrict any use of the information to criminally investigate or prosecute any alcohol or drug abuse patient.[facility] CampusIn the event this information is protected by the Federal Confidentiality of Alcohol and Drug Abuse Patient Records regulations: The Federal rules restrict any use of the information to criminally investigate or prosecute any alcohol or drug abuse patient.[facility] CampusIn the event this information is protected by the Federal Confidentiality of Alcohol and Drug Abuse Patient Records regulations: The Federal rules restrict any use of the information to criminally investigate or prosecute any alcohol or drug abuse patient.[facility] CampusIn the event this information is protected by the Federal Confidentiality of Alcohol and Drug Abuse Patient Records regulations: The Federal rules restrict any use of the information to criminally investigate or prosecute any alcohol or drug abuse patient.[facility] CampusIn the event this information is protected by the Federal Confidentiality of Alcohol and Drug Abuse Patient Records regulations: The Federal rules restrict any use of the information to criminally investigate or prosecute any alcohol or drug abuse patient.[facility] CampusIn the event this information is protected by the Federal Confidentiality of Alcohol and Drug Abuse Patient Records regulations: The Federal rules restrict any use of the information to criminally investigate or prosecute any alcohol or drug abuse patient.[facility] CampusIn the event this information is protected by the Federal Confidentiality of Alcohol and Drug Abuse Patient Records regulations: The Federal rules restrict any use of the information to criminally investigate or prosecute any alcohol or drug abuse patient.[facility] CampusIn the event this information is protected by the Federal Confidentiality of Alcohol and Drug Abuse Patient Records regulations: The Federal rules restrict any use of the information to criminally investigate or prosecute any alcohol or drug abuse patient.[facility] CampusIn the event this information is protected by the Federal Confidentiality of Alcohol and Drug Abuse Patient Records regulations: The Federal rules restrict any use of the information to criminally investigate or prosecute any alcohol or drug abuse patient.[facility] CampusIn the event this information is protected by the Federal Confidentiality of Alcohol and Drug Abuse Patient Records regulations: The Federal rules restrict any use of the information to criminally investigate or prosecute any alcohol or drug abuse patient.[facility] CampusIn the event this information is protected by the Federal Confidentiality of Alcohol and Drug Abuse Patient Records regulations: The Federal rules restrict any use of the information to criminally investigate or prosecute any alcohol or drug abuse patient.[facility] CampusIn the event this information is protected by the Federal Confidentiality of Alcohol and Drug Abuse Patient Records regulations: The Federal rules restrict any use of the information to criminally investigate or prosecute any alcohol or drug abuse patient.[facility] Care Teams (unrecognized sec tion and content) Storeroom Keeper Relationship Specialty Start Date End Date Roland Serrano DO PCP - General 09/21/07 Kizzy Galloway RN Specialty Publishing Manager Radiation Oncology 06/12/21 Storeroom Keeper Relationship Specialty Start Date End Date Roland Serrano, DO PCP - General 09/21/07 [place] [address] [place] [address] Specialty Publishing Manager Radiation Oncology 06/12/21 Storeroom Keeper Relationship Specialty Start Date End Date Roland Serrano, DO PCP - General 09/21/07 Kizzy Galloway RN [id number] [place] [address] Specialty Publishing Manager Radiation Oncology 06/12/21 Storeroom Keeper Relationship Specialty Start Date End Date Roland Serrano, DO PCP - General 09/21/07 Kizzy Galloway RN [address] [place] [address] Specialty Publishing Manager Radiation Oncology 06/12/21 Storeroom Keeper Relationship Specialty Start Date End Date Roland Serrano, DO PCP - General 09/21/07 Kizzy Galloway [place] [id number] [place] [address] Specialty Publishing Manager Radiation Oncology 06/12/21 Storeroom Keeper Relationship Specialty Start Date End Date Roland Serrano, DO PCP - General 09/21/07 [place] [address] [place] [address] Specialty Publishing Manager Radiation Oncology 06/12/21 Storeroom Keeper Relationship Specialty Start Date End Date Roland Serrano, DO PCP - General 09/21/07 [place] [address] [place] [address] Specialty Publishing Manager Radiation Oncology 06/12/21 Storeroom Keeper Relationship Specialty Start Date End Date Roland Serrano DO PCP - General 09/21/07 [place] [address] [place] [address] Specialty Publishing Manager Radiation Oncology 06/12/21 Storeroom Keeper Relationship Specialty Start Date End Date Roland Serrano DO PCP - General 09/21/07 [place] [address] [place] [address] Specialty Publishing Manager Radiation Oncology 06/12/21 Storeroom Keeper Relationship Specialty Start Date End Date Roland Serrano DO PCP - General 09/21/07 [place] [address] [place] [address] Specialty Publishing Manager Radiation Oncology 06/12/21 Storeroom Keeper Relationship Specialty Start Date End Date Roland Serrano DO PCP - General 09/21/07 [place] [address] [place] [address] Specialty Publishing Manager Radiation Oncology 06/12/21 Storeroom Keeper Relationship Specialty Start Date End Date Roland Serrano DO PCP - General 09/21/07 [place] [address] [place] [address] Specialty Publishing Manager Radiation Oncology 06/12/21 Storeroom Keeper Relationship Specialty Start Date End Date Roland Serrano DO PCP - General 09/21/07 [place] [address] [place] [address] Specialty Publishing Manager Radiation Oncology 06/12/21 Storeroom Keeper Relationship Specialty Start Date End Date Roland Serrano DO PCP - General 09/21/07 Kizzy Galloway RN [id number] [place] [address] Specialty Publishing Manager Radiation Oncology 06/12/21 Storeroom Keeper Relationship Specialty Start Date End Date Roland Serrano DO PCP - General 09/21/07 Kizzy Galloway RN [address] [place] [address] Specialty Publishing Manager Radiation Oncology 06/12/21 Storeroom Keeper Relationship Specialty Start Date End Date Roland Serrano DO PCP - General 09/21/07 Kizzy Galloway RN [address] [place] [address] Specialty Publishing Manager Radiation Oncology 06/12/21 Storeroom Keeper Relationship Specialty Start Date End Date Roland Serrano DO PCP - General 09/21/07 [place] [address] [place] [address] Specialty Publishing Manager Radiation Oncology 06/12/21 Storeroom Keeper Relationship Specialty Start Date End Date Roland Serrano DO PCP - General 09/21/07 [place] [address] [place] [address] Specialty Publishing Manager Radiation Oncology 06/12/21 Storeroom Keeper Relationship Specialty Start Date End Date Roland Serrano DO PCP - General 09/21/07 [place] [address] [place] [id number] Specialty Publishing Manager Radiation Oncology 06/12/21 Team Status: Active Member Role Status Dates Roland Serrano DO Primary Care Provider Active Team Status: Active Member Role Status Dates Roland Serrano DO Primary Care Provider Active Start: May 03, 2024 Najma Barbour MD Attending Provider Active St art: May 03, 2024 Team Status: Inactive Member Role Status Dates Roland Serrano DO Primary Care Provider Active Start: May 04, 2024 End: May 04, 2024 BETTY HameedC Attending Provider Act luca Start: May 04, 2024 End: May 04, 2024 Team Status: Active Member Role Status Dates Roland Serrano DO Primary Care Provide r, Attending Provider Active Start: May 19, 2024 Team Status: Active Member Role Status Dates Roland Serrano DO Primary Care Provide r, Attending Provider Active Start: June 25, 2024 Team Status: Inactive Member Role Status Dates Roland Serrano DO Primary Care Provide r, Attending Provider Active Start: June 29, 2024 End: June 29, 2024 Storeroom Keeper Relationship Specialty Start Date End Date Roland Serrano DO PCP - General 09/21/07 [place] [address] [place] [address] Specialty Publishing Manager Radiation Oncology 06/12/21 Storeroom Keeper Relationship Specialty Start Date End Date Roland Serrano DO PCP - General 09/21/07 [place] [address] [place] [address] Specialty Publishing Manager Radiation Oncology 06/12/21 Storeroom Keeper Relationship Specialty Start Date End Date Roland Serrano DO PCP - General 09/21/07 [place] [address] [place] [address] Specialty Publishing Manager Radiation Oncology 06/12/21 Kathryn Painter RN Specialty Publishing Manager Scientific Linguist Oncology 08/11/24 Storeroom Keeper Relationship Specialty Start Date End Date Roland Serrano DO PCP - General 09/21/07 [place] [address] [place] [address] Specialty Publishing Manager Radiation Oncology 06/12/21 Kathryn Painter, RN Specialty Publishing Manager Scientific Linguist Oncology 08/11/24 Storeroom Keeper Relationship Specialty Start Date End Date Roland Serrano MD [address] [place] [address] PCP - General Internal Medicine 02/13/24 Storeroom Keeper Relationship Specialty Start Date End Date Roland Serrano MD [address] [place] [address] PCP - General Internal Medicine 02/13/24 Storeroom Keeper Relationship Specialty Start Date End Date Roland Serrano MD [address] [place] [address] PCP - General Internal Medicine 02/13/24 Storeroom Keeper Relationship Specialty Start Date End Date Roland Serrano MD [address] [place] [address] PCP - General Internal Medicine 02/13/24 Team Status: Active Member Role Status Dates Roland Serrano DO Primary Care Provide r, Attending Provider Active Start: September 15, 2024 Team Status: Active Member Role Status Dates Roland Ball , DO Primary Care Provide r, Attending Provider Active Start: November 01, 2024 Team Status: Inactive Member Role Status Dates Roland Serrano , DO Primary Care Provide r, Attending Provider Active Start: November 26, 2024 End: November 26, 2024 Goals (unrecognized section and content) Goals may be documented in a n alternate section FOR RECORDS PERTAINING TO PATIENTS WHO ARE [...] BE BASED ON THE PRIMARY CLINICAL RECORDS. [email or web address] [facility]. provides no warranty or guarantee of the accuracy or completeness of information in this document.
== END 2024-12-01 07:56 | disposition home or self-care (01) ==
LOC: MRI 07:55
PROVIDERS: PCP Internal Medicine; Visit Provider Personal Emergency Response Attendant
DX: M54.16 Radiculopathy, lumbar region (principal); M51.369 Other intervertebral disc degeneration, lumbar region without mention of lumbar back pain or lower extremity pain
CPT/HCPCS: 72148

== ENCOUNTER 2024-12-31 11:12 | Emergency (ER) | payer BC, SELFPAY ==
[2024-12-31 11:18] VITALS: BP 141/91; PULSE 94; TEMP 36.8; O2SAT 99; BMI 25.0
--- NOTE | 2024-12-31 11:21 | XR_ITS ---
The [address] [address] Patient Name: JOSEPHINE STOVER MRN: [id number] date: 1960 Sex: F Assigned Patient Location: ER Current Patient Location: ER Accession/Order Number: [id number] Exam Date: 12/31/2024 11:34 Report Date: 12/31/2024 11:54 At the request of: ELENO RODRIGUEZ Procedure: XR wrist LT min 3V PROCEDURE: XR elbow LT min 3V, XR wrist LT min 3V HISTORY: pain COMPARISON: None. 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 There also appears to be heterotopic bone between the base of the first and second metacarpals although this could represent degenerative changes. 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 No acute fracture or dislocation involving the wrist and elbow joints. SOFT TISSUES:No visible soft tissue swelling. EFFUSION:None visible. OTHER: Negative. XR/XR wrist LT min 3V IMPRESSION: 1. No acute bone abnormality of the left wrist or elbow. 2. Degenerative changes and likely sequela of prior trauma involving the wrist. Electronically authenticated by: HENRY LOCK Date: 12/31/2024 11:54
--- NOTE | 2024-12-31 11:21 | XR_ITS ---
The [address] [address] Patient Name: JOSEPHINE STOVER MRN: [id number] date: 1960 Sex: F Assigned Patient Location: ER Current Patient Location: ER Accession/Order Number: [id number] Exam Date: 12/31/2024 11:34 Report Date: 12/31/2024 11:54 At the request of: ELENO RODRIGUEZ Procedure: XR elbow LT min 3V PROCEDURE: XR elbow LT min 3V, XR wrist LT min 3V HISTORY: pain COMPARISON: None. 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 There also appears to be heterotopic bone between the base of the first and second metacarpals although this could represent degenerative changes. 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 No acute fracture or dislocation involving the wrist and elbow joints. SOFT TISSUES:No visible soft tissue swelling. EFFUSION:None visible. OTHER: Negative. XR/XR elbow LT min 3V IMPRESSION: 1. No acute bone abnormality of the left wrist or elbow. 2. Degenerative changes and likely sequela of prior trauma involving the wrist. Electronically authenticated by: HENRY LOCK Date: 12/31/2024 11:54
--- OUTSIDE RECORDS SUMMARY | 2024-12-31 11:35 | XMS_ITS | CCD ---
Author Organization [facility] Care Team Providers Care 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 Name Role Phone Roland Serrano DO Primary Care Provider [phone] ROLAND SERRANO Primary Care Unavailable MAYRA MICHEL [...] Primary Care Unavailable AYAZ, SALOMON Attending Unavailable AYAZSALOMON CEJA Consulting Unavailable SALOMON JACOME Admitting Unavailable MAGGIE, DR YOUSSEF Primary Care Unavailable MAGGIE, DR YOUSSEF Admitting Unavailable MAGGIE, DR YOUSSEF Attending Unavailable MAGGIE, DR YOUSSEF Consulting Unavailable ZIEBER, DR HENRY Lr Consulting Unavailable SALOMON JACOME Attending Unavailable MAGGIE, DR YOUSSEF Primary Care Unavailable SALOMON JACOME Consulting Unavailable SALOMON JACOME Admitting Unavailable BALL, DR YOUSSEF Admitting Unavailable BALL, DR YOUSSEF Attending Unavailable BALL, DR YOUSSEF Consulting Unavailable MAGGIE, DR YOUSSEF Primary Care Unavailable MAGGIE, DR YOUSSEF Primary Care Unavailable MAGGIE, DR YOUSSEF Admitting Unavailable MAGGIE, DR YOUSESF Attending Unavailable BALL, DR YOUSSEF Consulting Unavailable SHIREEN, DR JACOB Parrish Consulting Unavailable Galloway RN, Kizzy Unavailable BALL, ROLAND E Primary Care Unavailable LESSA CISNEROS JAY, MIKE Referring Unava ilable Ball DO, Roland E Primary Care Provider Inocencio SHELTON, Kathryn Philippe Unavailable Unavaila ble MELODY MENA Attending Unavailable MAGGIE, ROLAND E Primary Care Unavailable RACHELHENRY Lr [...] Care Unavailable HEIDI MENARD Attending Unavailab le MAGGIE, ROLAND E Primary Care Unavailable ELDER GALAN Attending Unavailable JAYANTSOUTH Referring Unavailable BALL, ROLAND E Primary Care Unavailable BALL, ROLAND E Primary Care Unavailable JAYANT, SOUTH Philippe Referring Unavailable BALL, ROLAND E Primary Care Unavailable BALL, ROLAND E Primary Care Unavailable JAYANT, SOUTH Philippe Referring Unavailable MAGGIE, ROLAND E Primary Care Unavailable LESSA CISNEROS JAY, MIKE Referring Unava ilable BALL, ROLAND E Primary Care Unavailable JAYANTSOUTH FELIX Attending Unavailable MAGGIE, ROLAND E Primary Care Unavailable HENRY RAMOS Attending Unavailable RACHELHENRY Lr Referring Unavailable Roland Serraon MD Primary Care Provider JR. LAURA, MARY Chase Attending Unavaila ble JR. LAURA, MARY Chase Referring Unavaila ble JR. LAURA, MARY Chase Attending Unavaila ble JR. LAURA, MARY hCase Attending Unavaila ble JR. LAURA, MARY Chase Referring Unavaila ble JR. LAURA, MARY Chase Attending Unavaila ble LEIGH VALENZUELA Attending Unavailable DYAN ROBB Attending Unavailable DYAN ROBB Referring Unavailable DYAN ROBB Attending Unavailable Ball , Roland E Primary Care Provider EDWARD BARROS Referring Unavailable MAGGIE, ROLAND E Primary Care Unavailable Allergies Allergy Classification Reported Allergen(s) Allergy Type Date of Onset Reaction(s) Facility (6 sources) patient allergy list reviewed by nurse or physicia Propensity to adverse reactions Comment:Done [facility] Other (6 sources) Allergies Reconciled Propensity to adverse reactions Unknown [facility] Other Medications Current Medications Medication Drug Class(es) [...] needed for pain. Do not exceed 3-4g/24hr. [id number] 200 actuat albuterol 0.09 mg/actuat metered dose [...] mg tablet Active 250 MG PO daily 6 May 03, 2024 11:00pm take 2 today and [...] 25 mg oral tablet (20 sources) alpha-Adrenergic Ailsa, beta-Adrenergic Alisa Start: 11-30-2024 take 1 tablet by mouth every twelve hours carvedilol (Coreg) 25 mg tablet Take 1 tablet (25 mg) by mouth every 12 hours. 11/30/2024 Active Start: 07-30-2024 take 1 tablet by corinne th twice daily Carvedilol 25 mg tablet Active [...] Acet 0.05-0.14 MG/DAY (10 sources) Start: 08-14-20 18 apply 0.05-0.14 mg transdermal route once daily [...] nasal spray (8 sources) Corticosteroid Start: 01-21-20 23 take 1 spray(s) nasal route once daily Fluticasone Propionate 50 MCG/ACT 1 spray in each nostril Nasally Once a day for 21 days Jan, Active Fluticasone Propion-Salmeterol (20 sources) Corticosteroid, beta2-Adrenergic Agonist Start: 05-04-20 Fluticasone Propion-Salmeterol 250-50 mcg/dose blister with device [...] by mouth two times a day. Active methazolAMIDE 25 mg oral tablet (1 source) take 1 tablet by mouth three times daily methazolAMIDE (Neptazane) 25 mg tablet Take 1 tablet (25 mg) by mouth 3 times a day. Active methIMAzole 10 mg oral tablet (20 sources) Thyroid Hormone Synthesis Inhibitor Start: 09-16-2024 take 1 tablet by mouth once daily Methimazole 10 mg tablet Active 10 MG PO Daily September 16, 2024 2:28pm Start: 08-30-2024 End: 09-16-2024 take 2 tablets by mouth once daily Methimazole 10 mg tablet Discontinued 0 .ROUTE .COMPLEX August 30, 2024 4:55pm September 16, 2024 2:28pm TAKE TWO TABLETS BY MOUTH DAILY FOR 30 DAYS Start: 07-02-2024 take 1 tablet by corinne twice daily methIMAzole (TAPAZOLE) 10 mg tablet [...] mouth. Multivitamin Tablet (1 source) Start: 06-29-20 19 take 1 tablet by mouth once daily Multivitamin Tablet Active 1 TAB PO Daily June 28, 2019 11:00pm mupirocin 0.02 mg/mg topical ointment (6 sources) RNA Synthetase Inhibitor Antibacterial Start: 03-04-20 23 Mupirocin 2 % 1 application Externally Twice a day for 10 days Feb, Active [id number]-NWC-FISH OIL-L.CASEI ORAL (20 sources) [id number]-UND-DBB-FI SH OIL-L.CASEI ORAL Take by mouth once daily. Active [id number]-OUF-ICX-FI SH OIL-L.CASEI ORAL Take by mouth once daily. 0 Active Comment on above: Take by mouth once d aily. perflutren lipid microspheres 1.3 mL in NaCl (PF) 0.9% 10 mL injection (DEFINITY) (19 sources) Start: 06-27-2023 End: 09-25-2024 perflutren lipid microspheres 1.3 mL in NaCl (PF) 0.9% 10 mL injection (KidlandiaITY) Probiotic - (20 sources) Start: 08-14-2018 Probiotic [...] sources) Serotonin and Norepinephrine Reuptake Inhibitor Start: 12-06-2024 take 1 capsule by mouth once daily at mealtime venlafaxine XR (Effexor-XR) 150 mg 24 hr capsule Take 1 capsule (150 mg) by mouth once daily. take with food 12/06/2024 Active Start: 07-08-2024 take 1 capsule by mo [facility] once daily at mealtime Venlafaxine 150 mg [...] hours as needed for pain Hydrocodone-Acetami nophen ([place]) 5-325 mg tablet Discontinued 1 - 2 [...] Q6H as needed for left hip pain 28 7 November 02, 2021 May 04, 2024 6:53am ascorbic [...] capsule by mouth once daily Iron Ps Wfzxtop-D25-Bjecp Acid (Poly-Iron 150 Forte) 150-25-1 mg-mcg-mg capsule [...] tablet by mouth daily 0 06/13/2021 Active [place] 5-Jrb-Xlr-Fish Oil (Fish Oil) 1,000 mg (120 mg-180 mg) Capsule (2 sources) Start: 10-15-2021 End: 11-01-2021 take 1 capsule by mouth twice daily [place] 9-Ako-Laj-Fish Oil (Fish Oil) 1,000 mg (120 mg-180 mg) Capsule Discontinued 1 CAP PO Twice daily October 15, 2021 12:00am November 01, 2021 8:04pm Start: 10-15-2021 End: 11-01-2021 take 1 capsule by mouth twice daily [place] 5-Eex-Phx-Fish Oil (Fish Oil) 1,000 mg (120 mg-180 mg) Capsule Discontinued 1 CAP PO Twice daily October 15, 2021 1:00am November 01, 2021 9:04pm [place] 6-Tqh-Fce-Fish Oil (Fish Oil) 60-90-500 mg Capsule (2 sources) Start: 09-06-2020 End: 08-20-2021 take 1 capsule by mouth once daily [place] 3-Air-Jmp-Fish Oil (Fish Oil) 60-90-500 mg Capsule Discontinued 1 CAP PO Daily September 05, 2020 11:00pm August 20, 2021 10:26am Start: 09-06-2020 End: 08-20-2021 take 1 capsule by mouth once daily [place] 1-Ozm-Tai-Fish Oil (Fish Oil) 60-90-500 mg Capsule Discontinued [...] mouth 0 06/21/2021 Active polyethylene glycol 3350 113990 mg / potassium chloride 2970 mg / sodium bicarbonate 6740 mg / sodium chloride 5860 mg / sodium sulfate 10985 mg powder for oral solution (1 source) [...] hip joint Chronic Other connective tissue disease (6 sources) History of repair of hip joint; Translations: [Presence of right artificial hip joint] 10-29-2023 Chronic Comment on above: Problem List clean-u p per request of Phys. EHR Cmte Other connective tissue disease (4 sources) Plantar fascial fibromatosis; Translations: [Plantar fascial fibromatosis] Episodic Other connective tissue disease (2 sources) Other symptoms and signs involving the musculoskeletal system; Translations: [Other musculoskeletal symptoms referable to limbs] 12-02-2024 Episodic Other diseases of veins and lymphatics [...] Onset: 06-17-2016 Chronic Other nervous system disorders (4 sources) Paresthesia of right lower limb; Translations: [Paresthesia of skin] 12-02-2024 Episodic Other non-traumatic joint disorders (8 sources) Hip pain; Translations: [Pain in right hip] 10-29-2023 Episodic Comment on above: Problem List clean-u p per request of Phys. EHR Cmte Other non-traumatic joint disorders (2 sources) Pain in right hip; Translations: [Pain in right hip] Onset: 12-10-2024 Episodic Other screening for suspected conditions (not [...] Spondylosis; intervertebral disc disorders; other back problems (12 sources) Lumbar radiculopathy; Translations: [Radiculopathy, lumbar region] [...] Test Name Value Interpretation Reference Range Facility XR HIP RIGHT WITH PELVIS WHE N PERFORMED 2 OR 3 VIEWSon 12-10-2024 XR HIP RIGHT WITH PELVIS WHEN PERFORMED 2 OR 3 VIEWS Interpreted By: Kobe Garcia, STUDY: XR HIP RIGHT WITH PELVIS WHEN PERFORMED 2 OR 3 VIEWS INDICATION: Signs/Symptoms:PAIN. COMPARISON: None ACCESSION NUMBER(S): [id number] ORDERING CLINICIAN: EDWARD BARROS FINDINGS: Right total hip arthroplasty without fracture, malalignment, or periprosthetic lucency. IMPRESSION: Satisfactory appearance right total hip arthroplasty. Signed by: Kobe Garcia 12/11/2024 4:40 PM Dictation workstation: [id number] [facility] Laboratory - Chemistry and C hemistry - challengeon 11-01-2024 Free T4 [Mass/Vol] 0.68 ng/dL Low 0.76-1.[address] [facility] TSH Qn 0.781 m[IU]/L 0.358-3.740 [facility] XR Hip - right 3 [facility] [...] dislocation. Impression: Unremarkable right total hip arthroplasty. [facility] Radiology Study observation (narrative) [facility] Laboratory - Chemistry and C hemistry - challengeon 09-15-2024 Free T4 [Mass/Vol] 0.45 ng/dL Low 0.76-1.[address] [facility] TSH Qn 0.131 m[IU]/L Low 0.358-3.740 [facility] No Panel Informationon 09-15 Total Triiodothyronine 78 ng/dL 71-180 [facility] Comment on above: Performed at: [address], [place] [id number] Director: Alex Morse PhD, Phone: [phone] Vaishnavi 08-18-2024 [place]BORA Telephone (BHAVNA) ISABEL WADDELL ([id number]) 1960 F Date Time Provider Department 08/18/24 [...] mg by mouth daily at bedtime. - GOBX9-GWA-FLK-FISH OIL-L.CASEI ORAL Take by mouth once daily. [...] Status:Closed by ERNESTO CHACKO on 08/18/24 Normal [facility] HIGH RISK HUMAN PAPILLOMA RADHA (HPV), PCR FOR DETECTION AND GENOTYPINGOrdered By: Myron Sadler on 08-16-2024 HPV 16 Ag Ql (Unsp spec) Indeterminate Abnormal Not detected [facility] HPV 18 Ag Ql (Unsp spec) Indeterminate Abnormal Not detected [facility] HPV 31+33+35+39+45+51+52+5 6+58+59+66+68 DNA ANGELA+probe Ql (Cvx) Indeterminate Abnormal Not detected [facility] Comment on above: High Risk HPV Other Type includes HPV types 31, 33, 35, 39, 45, 51, 52, 56, 58, 59, 66 and 68. Interpretation and review of laboratory results Abnormal [facility] Indeterminate despit e repeat testing, likely due to suboptimal collection or amplification inhibition. Recommend submitting a new specimen for testing if clinically indicated. This test was developed and its performance characteristics determined by [facility]'s [facility] Pathology [facility] Laboratory Medicine [place] ([facility] It has not been cleared or approved by the FDA. [facility] is regulated under CLIA as qualified to perform high-complexity testing. This test is used for clinical purposes. It should not be regarded as investigational or for research. [facility] No Panel InformationOrdered By: Brice Cervantes on 08-16-2024 [facility] Work Phone: PAP TESTOrdered By: Brice mckeon on 08-16-2024 Case Report Gynecologic Cytology Report Case: [id number] Authorizing Provider: Ernesto Chacko APRN.[employer]LE[employer] DEVELOPER Collected: 08/05/2024 01:17 PM Ordering Location: Gynecology Oncology Received: 08/05/2024 07:53 PM First Screen: Silvia Lr CT, ASCP Pathologist: Brice Cervantes MD Specimen: Pap Test, ThinPrep, Vagina [facility] Work Phone: Clinical History Abnormal Bleeding (Describe) Hysterectomy, Total [facility] Work Phone: Gross Description [id number] MD FzVX5bzUdgqPv0mZqvAMEz cvI8tFUcXOmjo2whZJS4a1 hravTIXrjbDSGfLX6oKStg NUJuQA2zYkJoAZCcGaAoEC BhcGVydzEyMjQwXHBhcGVy bKD0TKZcDT9hyjvbPSqtEX rfAHLpeaA7MVEaeKCeO2Cb OYUpZW9qpjruPKT8LDFVPt rlWq3oiNXnkUkySvHqSpUz RNFePYKkRDIcj2cidsOBgk flaQy2zC2ZLSJkZ1WrAW3P f0hyAHTeqGYeDGM7HXuig5 meTHmwJAJ7PMZbJZXuQMSt HG1GAyUiKSqgVVQ3PWd0Sq X4PNp0KHQCXOMgLQF0PRN3 DCGlIEy0UYzeXYjykVVoFJ NvOQGdQZWaPXatkkF1j5qz WPXfuCYuPXZ1ONyyw9wuQX zcEHB1SGReYiItRVKcJA1Y MfAwCQxiWSM4ZCg1DuQ7VQ s7RIFFCpJuGaQrPLo8TDt2 GAOnBCq3WVw5NSoUHgHySv o7PTGoCEbmKUU6HVWtYDSk XHQgMiBcXHNzIDMgXFxmbC UxNO8hzIqaZERvKB6TWMPb LDsmZFCkNhZwCD1rDrNkrD 9jQIs5uxIrNQXktmTYNhtl QZCqLZ9XWDQmIAqrQSx6tx QaYOKuQiLdVKJkK29ul6YU y4SjCC2LBQh5cbQivvGMFj xmczIwIEdsYWNpYWwgQWNl dGljIEFjaWQgYWRkZWQuXH BhciANClxzYTMwXGVwaWNY h7BdYTXNTdpioOogGlTziH AoXgF5BSKsqFYmSFQ5QA8s mXvnSRFmW9NsN0UcdrZ4XH RshyBMDgwcJMSbFT7YOOQx MjIgDQp9 [facility] Work Phone: HPV Reflex Yes HPV [facility] Work Phone: Interpretation Unable to perform interpretation due to unsatisfactory specimen. [facility] Work Phone: Pap Disclaimer f1hvdAWbERPlk6oaKXDx bG FuZzEwMzNcZnRuYmpcdWMx CHzoggWxSRuuy6ZeD6JwXx AwMFxhbnNpXGRlZmxhbmcx TNJmGPS0puUyMFRvTKjyJA IrXGkhHw5dlZQgfGcwNlKz UDPsn2pzhgLLdtdvgOo0m4 fePESjEdJ7tAIxPBwuH9zn fxLabLUnYXKwTXi7tF96BE TjlK7qjYPuJIewhfNpZbG0 VGghAUOxSnB9CINhuVCjXL PqN5wiAMJnUJqzNWDqKRpz ePAaRQU3mFlaq6M2rMLlcM HkyAuvEcZhSpEwGaPUw1Tn VYv4sMonA7EoAAWxLmQ6fO QgUGFyYWdyYXBoIEZvbnQ7 fM98IJzpejN8jQYqf8Giw4 9ks325hD1oaBKdTGW8FDLl JHGayDDhCQIgVYM3OCFffL IiO0jxQUNfVR8yjpcwMMzv HOhxWXPzbXJ2CWLctTZbW0 LeSDWbZHehJDClllv1LdJz Sr4abBKjmCvyXMkdw1odk5 pnfHGlTxd6MDOkRyMbOgqb ISlla3Wvo5nqJBEkby0bOW X8eZKjcPrki9H8xPRdCHMf vWTtsiFjLZPkSpO9TGnfIB 2whw13HWHoCCT1nz5siSUu xYwussRvtECqPTdvT3VjXM Cdw446PBOuZ3FdFMSue5W3 icOzBrUmNYEdbRV8lcY8LL FgRPi6xSTonaP2szCslHLe U3ncjU7pCRKiAV5ajditr3 aiLIlzBRfpFCJneOA3rpC9 OVKsrLPdG8FauD3uYTZoHS gfWZJemhs6TjNuWs0zoCTw eTcyMFxzYmtwYWdlXHBnbm NvbnRccGduZGVjXHBsYWlu XHBsYWluXGYwXGZzMjRccW kqrAxbxR7lVdRqPgEeRtgg HT1tWVHwS6loqRBfBJSaVY LiH6msDaIpdY0toTjgWFdo wkK3YCGnCIFVYSFnW18bYW PzuLAlKUXwT1RpYY8zfbrn pVMkmMRjr6ArE2VoptseHF ypT2HjB1CaQpPoUxUcp6Rq gjPxNLPsyeAebqPetSo0ml OnV3G7cfH8yVJvZXXnmUYt M7QhQC6kfyytdNQydTQxHR PuoXtci3x0hW3uWFFySSVd ZWVkIGZvciByZXNjcmVlbm pyXfUenXWkEVVbzV0kqbFc ZCBpbnRlcnZhbHMsIGFuZC UlnVhzsAKovBRvg4DqAZue eQllxv3ecOwqgI8yKsDbIp MbVaieWL3qOYWzI9qptDHs TXQtYZWeK9zvSrAxyR7uyH msLGlijqFwZBEali63 [facility] Work Phone: Performing Lab t4wigOReUUQsl6ciOZSp bG FuZzEwMzNcZnRuYmpcdWMx IHtccnRmMVxhbnNpXGRlZm lsbgaqSPUhOQA4dqBtEUXp PEG4QRW1CuUtj0M5UIRkAk WgVJNwNG1ucRhwURWbXN0m NVBfG0kcsG4ioxz7DsAnYU BuDqU7KGUwvpV1Dhn1LKTq RCajm9mmz3WlVPCdTWq1cJ wcDoVlAMHih2njvzFsMaTz UUQaFTYxFQQxdBPhO971o9 xca0buinHplBJ6OPTqHLT7 MKeazfRdagM2TYhgfDJcOn H1NDzbxrSrBVyjnoJcowAa Ass9BIMdI595PBZ9cArlp4 vkRVN5RYSqZRSbYbVcIu9g rFSaP330IHYmOBXMNMXxaY b2DVYtowErewFquAODd190 B921j0ojFERucwAgeIiVyp sdz8sxX574WURsiBKkftNb OrKbMRTtlNHxcGB5UYGqSY 9lmphaZCydYCreUUXgarZ7 MFLmvXCuC8ApEVHtSB2pbn ptVFP5OPpbXWHbVFB3DaNi QMUca3Xbjie4IsKqgz9noq 00KBO1m3WpmLbuTQQ3RVB1 RbLdBr1dfWFiGOWuGD3rSv CcaHZnEKTvbk57vSzmHFfz phNmqW3wGkSxGRYhiAReQL HiUQ5onMLdTWOnwN5pukcn XHBnYnJkcmhlYWRccGdicm GiAd2mxQhcBFT9PRpqE3kt eX6aKoV0JNtpB7bbsP9iFW q7VXjduWP7TXOfwV5nNO4a zojwq6ggXAldPYpaINBvfs Z6qyV8YKPnnGNeP5FsjN6z EFGbJH1cxqkrl5psOIA4LX ljFYAgAEH6DyCaCCTbi1Ui eis3IrAlh1CodWBtURsbR3 9pq575AQFvjeSnL5tldMZw wzsewZSsjdtpAUqeywN9QR FsXHBsYWluXGYxXGZzMjJc bGFuZzEwMzNcaGljaFxmMV yeJcFbINLjUCbpT3ogZsIs ZnMyMiBUZWNobmljYWwgY2 8waO4yQB05JRJbaBMzjVMx zL0kdT2huKG5ZXEemfFpjb reWfVuVBApk0BhPNHeJOUq N2atvwKlQY9sAVLimV7fUc wgOTUwMCBFdWNsaWQgQXZl SGPMyAH8NJgjidFeX8emSA QxOTUgICBDTElBIyAzNkQw NqM9FKq4TMLpxf14x9vufO YxXHNzdGVjZjIyMDAwXGFu d3otHFTihRSgMrZfNmXzSu NiJmdlnEQsZDNcLwGvy6wi o940bSNew2mnYBPcGpP5lT QqKWWtbVQcX027GXCxKOak y8uqv9QaIJFxoYUtt1R9FQ LBzyvbyYt1pOsiQ43nd1U3 NbyjG1tyHLGrIORsK3CjRX 3sOWUpLxd6CYC4XCX0EBUy RIVsY2UbVC4vAGJtzPIwGV v7r4hsuUlwMQQvGCS0g3ih BQyelhBxGN6pwt3whKi0p3 xjczEgRGVmYXVsdCBQYXJh T7YfuHnjAp6jlTq6nKhiBp slZTH4Mxt8TM6ska09mlk1 oGnfEQMpvdmuSuG7DTtdFH VeitreBAl3XFmpRZUyuMM9 QAPogCJlC1SaUMudXL0hby p0QVU2CKxaWYAePaD8RLIs hNTlWTXvjRnbHNbvh992ZM C0YpVoVY2hQ1Iut7Z5vL4u aXRcZGVmdGFiNzIwXGZvcm 2mbOBvCVbnq8IkAWQ1chF4 hHAraRSePCYlAQ29Akfcf6 LvQxaix5LcS05zeAQ4RLsj w8mhPL5iAbC8vcXeCTojf8 zsoC8xFaX5ONqbBU9bYB4c NHXucM2ccdytFCQlQeEysd iuCNIakSsmpuFuGs8juAgx TEF7GJfmH2hkiW5uYfH4AQ lcE3bniE2rUNe3OBexrIQ7 XRVpjY8gDP5hspwmu4djZJ maOCknVVPecuZ1cfUaSZAl jRCmL6VyaO8bTUAyEE0xmm jds9ziNHO1SFhfYZHhJQI1 RtPxGNKyw2Lqnvi0WzJoa4 VfyTGqCWydL55np735MIGu uyVeL4kfbNPxwvgfzQQpgl lnFGfyjjN5ZKCpRIMhEDps XGYxXGZzMjBcbGFuZzEwMz NcaGljaFxmMVxkYmNoXGYx FDhfQ1lxSeBkVvEgUVGNfO Rmhi2xxPhsEYojwJOptHRv oTN4jL4rJATjrdFzul2bAT HslFKShUZ7QJuhyxHuD5ip aaohHJZ2OVWiHEA5G6uqXN BBdmUsIENsZXZlbGFuZCBP NWY3MAI7GDXrHGBYZXQsUC M0JAY0NNTpGRFncJGwDAUd clxwYXJkXHBsYWluXGYwXG CrDyIkwRnhiY1kRkCwKbQr BXwrXI3rPQXrS2amsEMhCK MbLWIfC2bcNmNvxE4ioFya MVxjZjJcZnMyMFxsdHJjaC IUFMZriiO8h1G9ICcfiQJv blxmMVxmczIwXGxhbmcxMD SbOKzxT3vcJlMlDDCorRvw TZlcb9MxMKMkGAEhZwRzNV spVZR0r1L5IVdvwMKkrbWF OcIBIP5soWVtlawrFI8LHg xwbGFpblxmMVxmczIyXGxh erezRIQqOGmxY9biDwBtFW JzkMtrBCmri8IeOVCyJETu MjJccGFyfX0= [facility] Work Phone: CNOVSPon 08-05-2024 CNOVSP Visit (SP) Office (BHAVNA) ISABEL WADDELL ([id number]) 1960 F Date Time Provider Department 08/05/24 11:10 AM HENRY RAMOS During your visit today, we recorded the following information about you: Temperature Pulse Blood pressure Weight 99 degrees 81/minute 141/75 67.1 kg Height 1.676 m Henry Ramos MD 08/16/2024 12:41 PM Signed Gynecologic Oncology [facility] Follow up visit Date of service: 08/05/2024 PROBLEM/CC: Isabel Waddell presents for endometrial cancer surveillance visit with spotting. HPI: Ms. Waddell is a 64 year old female with [...] differentiation, FIGO grade 2. Neg LVSI, 13% CT pT1a (IA): Tumor limited to endometrium or invades less than 1/2 of the myometrium 05/25/2021 Vaginal biopsy Vagina, biopsy - Consistent with endometrioid adenocarcinoma (see comment). GZ/ka 05/28/2021 COMMENT The tumor cells are diffusely and strongly positive for immunohistochemical stain for [place] 8, supporting the above diagnosis. The patient [...] by mouth daily at bedtime. Disp: Rfl: UIQA5-CBA-UUT-FISH OIL-L.CASEI ORALTake by mouth once daily.Disp: Rfl: Lactobac no.41/Bifidobact no.7 (PROBIOTIC-10 ORAL)Take by mouth onc (more content not included)... Normal [facility] HIGH RISK HUMAN PAPILLOMA RADHA (HPV), PCR FOR DETECTION AND GENOTYPINGon 08-05-2024 HPV 16 Ag Ql (Unsp spec) Indeterminate Abnormal Not detected [facility] Comment on above: Order Comment: Speci men Type: FLUID SPECIMENOrdering Facility: [facility] Address: [address] [place] [address] Performed By: #### H PVHRT, [id number] ####[facility] [id number] [place] [address] [place] HPV 18 Ag Ql (Unsp spec) Indeterminate Abnormal Not detected [facility] Comment on above: Order Comment: Speci men Type: FLUID SPECIMENOrdering Facility: [facility] Address: [address] [place] [address] Performed By: #### H PVHRT, [id number] ####[facility] [id number] [place] [address] [place] HPV 31+33+35+39+45+51+52+5 6+58+59+66+68 DNA ANGELA+probe Ql (Cvx) Indeterminate Abnormal Not detected [facility] Comment on above: Order Comment: Speci men Type: FLUID SPECIMENOrdering Facility: [facility] Address: [address] [place] [address] Result Comment: High Risk HPV Other Type includes HPV types 31, 33, 35, 39, 45, 51, 52, 56, 58, 59, 66 and 68. Performed By: #### H PVHRT, [id number] ####[facility] [id number] [place] [address] [place] PAP TESTon 08-05-2024 ADEQUACY Normal [facility] Comment on above: Order Comment: Speci men Type: FLUID SPECIMENOrdering Facility: [facility] Address: [address] [place] [address] Result Comment: Unsa tisfactory for evaluation. Limited cellularity. Performed By: #### H PVHRT, [id number] ####[facility] LABCLIA [id number] [place] [address] [place] CASE REPORT Normal [facility] Comment on above: Order Comment: Speci men Type: FLUID SPECIMENOrdering Facility: [facility] Address: [address] [place] [address] Result Comment: Gyne cologic Cytology Report Case: [id number] Authorizing Provider: Ernesto Chacko APRN.[employer] MIDDLEWARE DEVELOPER Collected: 08/05/2024 01:17 PM Ordering Location: Gynecology Oncology Received: 08/05/2024 07:53 PM First Screen: Adeline, Silvia, CT, ASCP Pathologist: Brice Cervantes MD Specimen: Pap Test, ThinPrep, Vagina Performed By: #### H SANTOS, [id number] ####[facility] LABCLIA [id number] [place] [address] [place] CLINICAL HISTORY, CYTOLOGY, WIRE MILL OPERATOR Normal [facility] Comment on above: Order Comment: Speci men Type: FLUID SPECIMENOrdering Facility: [facility] Address: [address] [place] [address] Result Comment: Abno rmal Bleeding (Describe) Hysterectomy, Total Performed By: #### H SANTOS, [id number] ####[facility] LABCLIA [id number] [place] [address] [place] FINAL PERFORMING LAB Normal [facility] Comment on above: Order Comment: Speci men Type: FLUID SPECIMENOrdering Facility: [facility] Address: [address] [place] [address] Result Comment: Tech nical component, fixed interest dealer screening performed at [facility], [address] [place] [address] CLIA# [id number] Diagnostic interpretation performed at [facility], [address] [place] [address] CLIA# [id number] Laundry Pricing Clerk: Anant Dumont M.D. Performed By: #### H SANTOS, [id number] ####[facility] LABCLIA [id number] [place] [address] [place] GROSS DESCRIPTION A. Vagina Normal [facility] Comment on above: Order Comment: Speci men Type: FLUID SPECIMENOrdering Facility: [facility] Address: [address] [place] [address] Result Comment: Glac ial Acetic Acid added. Performed By: #### H PVHRT, [id number] ####[facility] LABCLIA [id number] [address] [id number] [address] [place] HPV REFLEX Yes HPV Normal [facility] Comment on above: Order Comment: Speci men Type: FLUID SPECIMENOrdering Facility: [facility] Address: [address] [place] [address] Performed By: #### H PVHRT, [id number] ####[facility] LABCLIA [id number] [place] [address] [place] INTERPRETATION, CYTOLOGY, WIRE MILL OPERATOR Normal [facility] Comment on above: Order Comment: Speci men Type: FLUID SPECIMENOrdering Facility: [facility] Address: [address] [place] [address] Result Comment: Unab le to perform interpretation due to unsatisfactory specimen. Performed By: #### H PVHRT, [id number] ####[facility] LABCLIA [id number] [place] [address] [place] PAP DISCLAIMER COMMENT The Pap Smear is a screening test for cervical cancer. False negative results occur with all screening tests, emphasizing the need for rescreening at recommended intervals, and clinical correlation. Normal [facility] Comment on above: Order Comment: Speci men Type: FLUID SPECIMENOrdering Facility: [facility] Address: [address] [place] [address] Performed By: #### H PVHRT, [id number] ####[facility] LABCLIA [id number] [place] [address] [place] Laboratory - Chemistry and C hemistry - challengeon 06-25-2024 Free T4 [Mass/Vol] 1.58 ng/dL High 0.76-1.[address] [facility] No Panel Informationon 06-25 Thyroid Stimulating Hormone 3rd Gen <0.007 u[iU]/mL Low 0.358-3.740 [facility] Total Triiodothyronine 199 ng/dL Abnormal 71-180 [facility] Comment on above: Performed at: [place] [id number] Director: Alex Morse PhD, Phone: [phone] Laboratory - Chemistry and C hemistry - challengeon 05-19-2024 Free T4 [Mass/Vol] 2.49 ng/dL High 0.76-1.[address] [facility] No Panel Informationon 05-19 Thyroid Stimulating Hormone 3rd Gen <0.007 u[iU]/mL Low 0.358-3.740 [facility] Total Triiodothyronine 271 ng/dL Abnormal 71-180 [facility] Comment on above: Performed at: [employer] [id number] [place], [place] [id number] Director: Alex Morse PhD, Phone: [phone] Thyroid stimulating immunogl obulin (TSI) measurementon 05-19-2024 Thyroid stimulating immunoglobulins actual/normal (S) [Relative mass conc] 3.57 IU/L Abnormal 0.00-0.55 [facility] Comment on above: Performed at: [facility] [employer] [address] [id number] Director: Betty Montiel MD, Phone: [phone] No Panel InformationOrdered By: Dee Dee Espana on 05-04-2024 Quick Strep (POC) [facility] Basophils Auto (Bld) [#/Vol] on 05-03-2024 Basophils (Bld) [#/Vol] 0.0 10 3/uL 0.0-0.1 [facility] Basophils/100 WBC Auto (Bld) on 05-03-2024 Basophils/100 WBC (Bld) 0.2 % 0.2-2.0 [facility] Eosinophils/100 WBC Auto (Bl d)on 05-03-2024 Eosinophils/100 WBC (Bld) 5.4 % 0.9-7.0 [facility] Erythrocyte distribution wid th Auto (RBC) [Ratio]on 05-03-2024 Erythrocyte distribution width (RBC) [Ratio] 12.7 % 11.0-15.0 [facility] Hematocrit Auto (Bld) [Volum e fraction]on 05-03-2024 Hematocrit (Bld) [Volume fraction] 40.6 % 36.0-48.0 [facility] Hemoglobin [Mass/volume] in Bloodon 05-03-2024 Hemoglobin (Bld) [Mass/Vol] 13.1 g/dL 12.0-16.0 [facility] Iron binding capacity [Mass/ volume] in Serum or Plasmaon 05-03-2024 Iron binding capacity [Mass/Vol] 279.0 ug/dL 250.0-450.0 [facility] Iron saturation [Mass Fracti on] in Serum or Plasmaon 05-03-2024 Iron saturation [Mass fraction] 14.0 % [facility] Laboratory - Chemistry and C hemistry - challengeon 05-03-2024 Ferritin [Mass/Vol] 128.0 ng/mL 8.0-252.0 [facility] Free T4 [Mass/Vol] 2.46 ng/dL High 0.76-1.[address] [facility] Iron [Mass/Vol] 39.0 ug/dL Low 50.0-170.0 [facility] Laboratory - Hematology and Cell countson 05-03-2024 Immature granulocytes/100 WBC (Bld) 0.2 % 0.0-0.5 [facility] Leukocytes [#/volume] correc katherine for nucleated erythrocytes in Blood by Automated counon 05-03-2024 WBC corrected for nucl RBC Auto (Bld) [#/Vol] 4.3 10 3/uL 4.0-11.0 [facility] Lymphocytes Auto (Bld) [#/Vo l]on 05-03-2024 Lymphocytes (Bld) [#/Vol] 1.3 10 3/uL 1.2-3.8 [facility] Lymphocytes/100 WBC Auto (Bl d)on 05-03-2024 Lymphocytes/100 WBC (Bld) 29.7 % 20.5-60.0 [facility] MCH Auto (RBC) [Entitic mass ]on 05-03-2024 MCH (RBC) [Entitic mass] 29.2 pg 26.7-34.0 [facility] MCHC Auto (RBC) [Mass/Vol]on 05-03-2024 MCHC (RBC) [Mass/Vol] 32.3 g/dL 29.9-35.2 [facility] MCV Auto (RBC) [Entitic vol] on 05-03-2024 MCV (RBC) [Entitic vol] 90.4 fL 81.0-99.0 [facility] Monocytes Auto (Bld) [#/Vol] on 05-03-2024 Monocytes (Bld) [#/Vol] 0.5 10 3/uL 0.3-0.8 [facility] Monocytes/100 WBC Auto (Bld) on 05-03-2024 Monocytes/100 WBC (Bld) 11.0 % 1.7-12.0 [facility] Neutrophils Auto (Bld) [#/Vo l]on 05-03-2024 Neutrophils (Bld) [#/Vol] 2.3 10 3/uL 1.4-6.5 [facility] Neutrophils/100 WBC Auto (Bl d)on 05-03-2024 Neutrophils/100 WBC (Bld) 53.5 % 43.0-75.0 [facility] No Panel Informationon 05-03 Eosinophils # (Auto) 0.2 10 3/uL 0.0-0.7 [facility] Immature Granulocyte # (Auto) 0.01 10 3/uL 0.00-0.03 [facility] Thyroid Stimulating Hormone 3rd Gen <0.007 u[iU]/mL Low 0.358-3.740 [facility] Platelet mean volume Auto (B ld) [Entitic vol]on 05-03-2024 Platelet mean volume (Bld) [Entitic vol] 9.6 fL 9.5-13.5 [facility] Platelets Auto (Bld) [#/Vol] on 05-03-2024 Platelets (Bld) [#/Vol] 192 10 3/uL 150-450 [facility] RBC Auto (Bld) [#/Vol]on RBC (Bld) [#/Vol] 4.49 10 6/uL 4.20-5.40 [facility] CNOVon 09-29-2023 CNOV Office Visit (CORSMN ) ISABEL WADDELL ([id number]) 1960 F Date Time Provider Department 09/29/23 [...] Date Reviewed: 09/29/2023 Reviewed by: Laura Griffith, NIKITA - Fully Assessed Reason for Visit: Follow [...] mg by mouth daily at bedtime. - [id number]-IEN-DXT-FISH OIL-L.CASEI ORAL Take by mouth once daily. [...] 09/02 (more content not included)... Normal [facility] ANES POSTPROC EVALon 023 ANES POSTPROC EVAL HNO ID: [id number] Author: Kobe Garcia MD Service: ? Author Type: Anesthesiologist Type: Anesthesia Postprocedure Evaluation Filed: 09/02/2023 10:38 AM Note Text: POST ANESTHESIA EVALUATION NOTE : 1960 Procedure Summary Date: 09/02/23 Room / Location: [address] [facility] Start: 745 Anesthesia Stop: 925 Procedures: [...] September 02, 2023 TIME: 10:37 AM CSN: [id number] Normal [facility] ANES PRE-OPon 09-02-2023 ANES PRE-OP HNO ID: [id number] Author: Kobe Garcia MD Service: ? Author Type: Anesthesiologist Type: Anesthesia Preprocedure Evaluation Filed: 09/02/2023 8:30 AM Note Text: ANESTHESIOLOGY DAY OF SURGERY NOTE : 1960 Procedure Information Date/Time: 09/02/23729 Procedures: EXAM UNDER ANESTHESIA RECTAL (Anus) SIGMOIDOSCOPY FLEXIBLE (Colon Sigmoid) ANOSCOPY W/ CONTROL OF BLEEDING- Formalin treatment (Anus) Location: MAIN [facility] Surgeons: [place] DO [...] 1,000 mg by mouth once daily. - FRZZ6-JDX-UZM-FISH OIL-L.CASEI ORAL Take by mouth once daily. [...] 06/27/2023 (more content not included)... Normal [facility] ANES PREOPon 09-02-2023 ANES PREOP HNO ID: [id number] Author: Kobe Garcia MD Service: Anesthesiology Author Type: Anesthesiologist Type: Anesthesia PreOp Filed: 09/02/2023 7:05 AM Note Text: Healthy except for FAP. Appropriately NPO, denies reflux, no history of anesthesia problems. Reviewed in fathers presence. MP1, no airway concerns, ASA2, Plan for GA with LMA. Has braces, tight , no loose teeth. Normal [facility] BRIEF OP NOTon 09-02-2023 BRIEF OP NOT HNO ID: [id number] Author: Milagro Sanchez MD Service: Colorectal Author Type: Physician Type: Brief Op Note Filed: 09/02/2023 8:57 AM Note Text: BRIEF OPERATIVE NOTE - COLORECTAL SURGERY Log ID: [id number] Surgery/Procedure Date: 09/02/2023 Incision/Procedure Start Time: 8:01 AM Incision Close/Procedure End Time: 8:51 AM Surgeon(s) and Poultry Hatchery Man(s): Surgeon(s) and Role: * [place] DO [...] 02, 2023 TIME: 8:56 AM Normal [facility] CNDSon 09-02-2023 CNDS HNO ID: [id number] Author: Ricardo White PA-C Service: Colorectal Author Type: Physician Poultry Hatchery Man Type: Discharge Summary Filed: 09/02/2023 2:06 PM Note Text: Attestation signed by [place] DO at 09/02/2023 4:24 PM [place] DO, FACS, FASCRS Colorectal Surgery DISCHARGE SUMMARY PATIENT NAME: [...] total hysterectomy, BSO, cystotomy/cystotomy repair and cystoscopy (2018) with recurrence s/p radiation), colonic angiectasia (s/p [...] see a follow up appointment in your [facility] in 4-[address] Saba's office at [phone] to make an appointment. Transitions of Care [...] Commonly (more content not included)... Normal [facility] Hematocrit Auto (Bld) [Volum e fraction]on 09-02-2023 Hematocrit (Bld) [Volume fraction] 27.4 % Low 36.0-46.0 [facility] Comment on above: Order Comment: Speci men Type: BLOOD SPECIMENOrdering Facility: [facility] Address: [address] [place] [address] Performed By: #### 4 544-3, 718-7 ####[facility] [id number] [address] [place] Hgb Bld-mCncon 09-02-2023 Hemoglobin (Bld) [Mass/Vol] 7.5 g/dL Low 11.5-15.5 [facility] Comment on above: Order Comment: Speci maria esther Type: BLOOD SPECIMENOrdering Facility: [facility] Address: [address] [place] [address] Performed By: #### 4 544-3, 718-7 ####[facility] [id number] [address] [place] OPERATIVE NOon 09-02-2023 OPERATIVE NO HNO ID: [id number] Author: [place] DO Service: Colorectal Author Type: Physician Type: Operative Report Filed: 09/10/2023 7:14 AM Note Text: OPERATIVE REPORT PATIENT NAME: Isabel Waddell LOG ID: [id number] SURGERY DATE: 09/02/2023 INCISION/PROCEDURE START TIME: 8:01 AM INCISION CLOSE/PROCEDURE END TIME: 8:51 AM PREOPERATIVE DIAGNOSIS: Radiation proctitis, anemia, history of endometrial adenocarcinoma POSTOPERATIVE DIAGNOSIS: Radiation proctitis, anemia, history of endometrial adenocarcinoma OPERATION PERFORMED: Flexible sigmoidoscopy, exam under anesthesia, topical application of formalin to the rectum for treatment of radiation proctitis SURGEON: [place] DO CONTACT LENS CURVE GRINDER: Milagro Sanchez MD. no qualified residents or [...] DO, FACS, FASCRS Colorectal Surgery Normal [facility] TYPE + SCREENon 09-02-2023 ABO O Normal [facility] Comment on above: Order Comment: Speci men Type: BLOOD SPECIMENOrdering Facility: [facility] Address: [address] [place] [address] Performed By: #### T SCR ####CC MAIN BLOOD BANKCLIA [id number] [address] STATES OF [facility] HISTORICAL AB SCR STATUS Negative Normal [facility] Comment on above: Order Comment: Speci men Type: BLOOD SPECIMENOrdering Facility: [facility] Address: [address] [place] [address] Performed By: #### T SCR ####[facility] MA[facility] BLOOD BANKCLIA [id number] [place] [address] [place] Rh Nom (Bld) Positive Normal [facility] Comment on above: Order Comment: Speci men Type: BLOOD SPECIMENOrdering Facility: [facility] Address: [address] [place] [address] Performed By: #### T SCR ####[facility] MA[facility] BLOOD BANKCLIA [id number] [place] [address] [place] TYPE AND SCREEN EXPIRATION 09/05/2023 23:59 Normal [facility] Comment on above: Order Comment: Speci men Type: BLOOD SPECIMENOrdering Facility: [facility] Address: [address] [place] [address] Performed By: #### T SCR ####[facility] BLOOD BANKIA [id number] [place] [address] [place] CBC W Auto Differential pane l (Bld)on 08-29-2023 Basophils (Bld) [#/Vol] 10*3/uL Normal <0.11 [facility] Comment on above: Order Comment: Speci men Type: BLOOD SPECIMENOrdering Facility: [facility] Address: [address] [place] [address] Performed By: #### 5 7021-8 ####[facility] LABCLIA [id number] [place] [address] [place] Basophils/100 WBC (Bld) 0.7 % Normal [facility] Comment on above: Order Comment: Speci men Type: BLOOD SPECIMENOrdering Facility: [facility] Address: [address] [place] [address] Performed By: #### 5 7021-8 ####[facility] LABCLIA [id number] [place] [address] [place] Differential cell count method Nom (Bld) Auto Normal [facility] Comment on above: Order Comment: Speci men Type: BLOOD SPECIMENOrdering Facility: [facility] Address: [address] [place] [address] Performed By: #### 5 7021-8 ####[facility] LABCLIA [id number] [place] [address] [place] Eosinophils (Bld) [#/Vol] 0.18 10*3/uL Normal <0.46 [facility] Comment on above: Order Comment: Speci men Type: BLOOD SPECIMENOrdering Facility: [facility] Address: [address] [place] [address] Performed By: #### 5 7021-8 ####[facility] LABCLIA [id number] [place] [address] [place] Eosinophils/100 WBC (Bld) 5.9 % Normal [facility] Comment on above: Order Comment: Speci men Type: BLOOD SPECIMENOrdering Facility: [facility] Address: [address] [place] [address] Performed By: #### 5 7021-8 ####[facility] LABCLIA [id number] [place] [address] [place] Erythrocyte distribution width (RBC) [Ratio] 22.0 % High 11.5-15.0 [facility] Comment on above: Order Comment: Speci men Type: BLOOD SPECIMENOrdering Facility: [facility] Address: [address] [place] [address] Performed By: #### 5 7021-8 ####[facility] LABCLIA [id number] [place] [address] [place] Hematocrit (Bld) [Volume fraction] 26.0 % Low 36.0-46.0 [facility] Comment on above: Order Comment: Speci men Type: BLOOD SPECIMENOrdering Facility: [facility] Address: [address] [place] [address] Performed By: #### 5 7021-8 ####[facility] LABCLIA [id number] [place] [address] [place] Hemoglobin (Bld) [Mass/Vol] 7.0 g/dL Low 11.5-15.5 [facility] Comment on above: Order Comment: Speci men Type: BLOOD SPECIMENOrdering Facility: [facility] Address: [address] [place] [address] Performed By: #### 5 7021-8 ####[facility] LABCLIA [id number] [place] [address] [place] Immature granulocytes (Bld) [#/Vol] 10*3/uL Normal <0.10 [facility] Comment on above: Order Comment: Speci men Type: BLOOD SPECIMENOrdering Facility: [facility] Address: [address] [place] [address] Performed By: #### 5 7021-8 ####[facility] LABCLIA [id number] [place] [address] [place] Immature granulocytes/100 WBC (Bld) 0.0 % Normal [facility] Comment on above: Order Comment: Speci men Type: BLOOD SPECIMENOrdering Facility: [facility] Address: [address] [place] [address] Performed By: #### 5 7021-8 ####[facility] LABIA [id number] [place] [address] [place] Lymphocytes (Bld) [#/Vol] 1.20 10*3/uL Normal 1.00-4.00 [facility] Comment on above: Order Comment: Speci men Type: BLOOD SPECIMENOrdering Facility: [facility] Address: [address] [place] [address] Performed By: #### 5 7021-8 ####[facility] LABIA [id number] [place] [address] [place] Lymphocytes/100 WBC (Bld) 39.1 % Normal [facility] Comment on above: Order Comment: Speci men Type: BLOOD SPECIMENOrdering Facility: [facility] Address: [address] [place] [address] Performed By: #### 5 7021-8 ####[facility] LABIA [id number] [place] [address] [place] MCH (RBC) [Entitic mass] 17.9 pg Low 26.0-34.0 [facility] Comment on above: Order Comment: Speci men Type: BLOOD SPECIMENOrdering Facility: [facility] Address: [address] [place] [address] Performed By: #### 5 7021-8 ####[facility] LABCLIA [id number] [id number] [address] [place] MCHC (RBC) [Mass/Vol] 26.9 g/dL Low 30.5-36.0 [facility] Comment on above: Order Comment: Speci men Type: BLOOD SPECIMENOrdering Facility: [facility] Address: [address] [place] [address] Performed By: #### 5 7021-8 ####[facility] LABCLIA [id number] [place] [address] [place] MCV (RBC) [Entitic vol] 66.3 fL Low 80.0-100.0 [facility] Comment on above: Order Comment: Speci men Type: BLOOD SPECIMENOrdering Facility: [facility] Address: [address] [place] [address] Performed By: #### 5 7021-8 ####[facility] LABCLIA [id number] [place] [address] [place] Monocytes (Bld) [#/Vol] 0.40 10*3/uL Normal <0.87 [facility] Comment on above: Order Comment: Speci men Type: BLOOD SPECIMENOrdering Facility: [facility] Address: [address] [place] [address] Performed By: #### 5 7021-8 ####[facility] LABCLIA [id number] [place] [address] [place] Monocytes/100 WBC (Bld) 13.0 % Normal [facility] Comment on above: Order Comment: Speci men Type: BLOOD SPECIMENOrdering Facility: [facility] Address: [address] [place] [address] Performed By: #### 5 7021-8 ####[facility] LABCLIA [id number] [place] [address] [place] Neutrophils (Bld) [#/Vol] 1.27 10*3/uL Low 1.45-7.50 [facility] Comment on above: Order Comment: Speci men Type: BLOOD SPECIMENOrdering Facility: [facility] Address: [address] [place] [address] Performed By: #### 5 7021-8 ####[facility] LABIA [id number] [place] [address] [place] Neutrophils/100 WBC (Bld) 41.3 % Normal [facility] Comment on above: Order Comment: Speci men Type: BLOOD SPECIMENOrdering Facility: [facility] Address: [address] [place] [address] Performed By: #### 5 7021-8 ####[facility] LABCLIA [id number] [place] [address] [place] Nucleated RBC (Bld) [#/Vol] 10*3/uL Normal <0.01 [facility] Comment on above: Order Comment: Speci men Type: BLOOD SPECIMENOrdering Facility: [facility] Address: [address] [place] [address] Performed By: #### 5 7021-8 ####[facility] LABIA [id number] [place] [address] [place] Nucleated RBC/100 WBC (Bld) [Ratio] 0.0 /100 WBC Normal [facility] Comment on above: Order Comment: Speci men Type: BLOOD SPECIMENOrdering Facility: [facility] Address: [address] [place] [address] Performed By: #### 5 7021-8 ####[facility] LABIA [id number] [place] [address] [place] Platelet mean volume (Bld) [Entitic vol] 9.6 fL Normal 9.0-12.7 [facility] Comment on above: Order Comment: Speci men Type: BLOOD SPECIMENOrdering Facility: [facility] Address: [address] [place] [address] Performed By: #### 5 7021-8 ####[facility] LABIA [id number] [place] [address] [place] Platelets (Bld) [#/Vol] 266 10*3/uL Normal 150-400 [facility] Comment on above: Order Comment: Speci men Type: BLOOD SPECIMENOrdering Facility: [facility] Address: [address] [place] [address] Performed By: #### 5 7021-8 ####[facility] LABCLIA [id number] [place] [address] [place] RBC (Bld) [#/Vol] 3.92 10*6/uL Normal 3.90-5.20 [facility] Comment on above: Order Comment: Speci men Type: BLOOD SPECIMENOrdering Facility: [facility] Address: [address] [place] [address] Performed By: #### 5 7021-8 ####[facility] LABCLIA [id number] [place] [address] [place] WBC (Bld) [#/Vol] 3.07 10*3/uL Low 3.70-11.00 [facility] Comment on above: Order Comment: Speci men Type: BLOOD SPECIMENOrdering Facility: [facility] Address: [address] [place] [address] Performed By: #### 5 7021-8 ####[facility] LABCLIA [id number] [place] [address] [place] CNOVon 08-29-2023 CNOV Office Visit (HMOERO ) ISABEL WADDELL ([id number]) 1960 F Date Time Provider Department 08/29/23 [...] team about CBC once drawn. Elder Galan APRN.[employer] DEVELOPER Pelvic Floor Colorectal Surgery Risk of morbidity, mortality and/or complications of treatment plan: high Referring Provider: SOU[place] SABA [[id number]] Allergies As of Allen (more content not included)... Normal [facility] CNOV Office Visit (PMNA11 ) ISABEL WADDELL ([id number]) 1960 F Date Time Provider Department 08/29/23 10:00 AM HEIDI MENARD PMNA11 During your visit today, we recorded the following information about you: Temperature Pulse Respiration Blood pressure 98 degrees 82/minute 16/minute 157/77 Weight 66.7 kg Heidi Menard MD 08/29/2023 1:08 PM Signed Ms. Waddell is a 63 year old female who presents to the [facility] Res[facility] [place]. 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 Normal [facility] Comprehensive metabolic 2000 panelon 08-29-2023 Albumin [Mass/Vol] 3.9 g/dL Normal 3.9-4.9 [facility] Comment on above: Order Comment: Speci men Type: BLOOD SPECIMENOrdering Facility: [facility] Address: [address] [place] [address] Performed By: #### 2 4323-8 ####[facility] LABIA [id number] [place] [address] [place] ALP [Catalytic activity/Vol] 164 U/L High 34-123 [facility] Comment on above: Order Comment: Speci men Type: BLOOD SPECIMENOrdering Facility: [facility] Address: [address] [place] [address] Performed By: #### 2 4323-8 ####[facility] LABIA [id number] [place] [address] [place] ALT [Catalytic activity/Vol] 45 U/L High 7-38 [facility] Comment on above: Order Comment: Speci men Type: BLOOD SPECIMENOrdering Facility: [facility] Address: [address] [place] [address] Performed By: #### 2 4323-8 ####[facility] LABCLIA [id number] [place] [address] [place] Anion gap [Moles/Vol] 10 mmol/L Normal 9-18 [facility] Comment on above: Order Comment: Speci men Type: BLOOD SPECIMENOrdering Facility: [facility] Address: [address] [place] [address] Performed By: #### 2 4323-8 ####[facility] LABCLIA [id number] [place] [address] [place] DAMON AST [Catalytic activity/Vol] 48 U/L High 13-35 [facility] Comment on above: Order Comment: Speci men Type: BLOOD SPECIMENOrdering Facility: [facility] Address: [address] [place] [address] Performed By: #### 2 4323-8 ####[facility] LABCLIA [id number] [place] [address] [place] Bilirubin [Mass/Vol] 0.3 mg/dL Normal 0.2-1.3 [facility] Comment on above: Order Comment: Speci men Type: BLOOD SPECIMENOrdering Facility: [facility] Address: [address] [place] [address] Performed By: #### 2 4323-8 ####[facility] LABCLIA [id number] [place] [address] [place] Calcium [Mass/Vol] 9.5 mg/dL Normal 8.5-10.2 [facility] Comment on above: Order Comment: Speci men Type: BLOOD SPECIMENOrdering Facility: [facility] Address: [address] [place] [address] Performed By: #### 2 4323-8 ####[facility] [place] LABCLIA [id number] [place] [id number] [place] Chloride [Moles/Vol] 107 mmol/L High 97-105 [facility] Comment on above: Order Comment: Speci men Type: BLOOD SPECIMENOrdering Facility: [facility] Address: [address] [place] [address] Performed By: #### 2 4323-8 ####[facility] [place] LABCLIA [id number] [place] [address] [place] CO2 [Moles/Vol] 24 mmol/L Normal 22-30 [facility] Comment on above: Order Comment: Speci men Type: BLOOD SPECIMENOrdering Facility: [facility] Address: [address] [place] [address] Performed By: #### 2 4323-8 ####[facility] LABIA [id number] [address] STATES OF [facility] Creatinine [Mass/Vol] 0.61 mg/dL Normal 0.58-0.96 [facility] Comment on above: Order Comment: Speci men Type: BLOOD SPECIMENOrdering Facility: [facility] Address: [address] [place] [address] Performed By: #### 2 4323-8 ####[facility] LABIA [id number] [address] Creatinine and Glomerular filtration rate.predicted panel (S/P/Bld) 101 mL/min/1.73m??? Normal >=60 [facility] Comment on above: Order Comment: Speci men Type: BLOOD SPECIMENOrdering Facility: [facility] Address: [address] [place] [address] Result Comment: Kae mated Glomerular Filtration Rate [...] actual GFR. Performed By: #### 2 4323-8 ####[facility] LABCLIA [id number] [place] [address] [place] Glucose [Mass/Vol] 94 mg/dL Normal 74-99 [facility] Comment on above: Order Comment: Speci men Type: BLOOD SPECIMENOrdering Facility: [facility] Address: [address] [place] [address] Result Comment: The [place] Diabetes Association (ADA) provides guidance for cutoff [...] Standards of Medical Care in Diabetes 2016, [place] [employer]. Diabetes Care. 2016.39(Suppl 1). Performed By: #### 2 4323-8 ####[facility] LABIA [id number] [place] [address] [place] Potassium [Moles/Vol] 4.5 mmol/L Normal 3.7-5.1 [facility] Comment on above: Order Comment: Speci men Type: BLOOD SPECIMENOrdering Facility: [facility] Address: [address] [place] [address] Performed By: #### 2 4323-8 ####[facility] LABIA [id number] [place] [address] [place] Protein [Mass/Vol] 6.4 g/dL Normal 6.3-8.0 [facility] Comment on above: Order Comment: Speci men Type: BLOOD SPECIMENOrdering Facility: [facility] Address: [address] [place] [address] Performed By: #### 2 4323-8 ####[facility] LABIA [id number] [place] [address] [place] Sodium [Moles/Vol] 141 mmol/L Normal 136-144 [facility] Comment on above: Order Comment: Speci men Type: BLOOD SPECIMENOrdering Facility: [facility] Address: [address] [place] [address] Performed By: #### 2 4323-8 ####[facility] LABCLIA [id number] [place] [address] [place] Urea nitrogen [Mass/Vol] 13 mg/dL Normal 7-21 [facility] Comment on above: Order Comment: Speci men Type: BLOOD SPECIMENOrdering Facility: [facility] Address: [place] [address] Performed By: #### 2 4323-8 ####[facility] LABCLIA [id number] [address] [place] OF [place] ECG COMPLETEon 08-29-2023 ECG COMPLETE Ventricular Rate : 7 6 BPM Atrial Rate : 76 BPM P-R Interval : 194 ms QRS Duration : 82 ms Q-T Interval : 392 ms QTC Calculation(Bazett) : 441 ms Calculated P [place] : 22 degrees Calculated R [place] : 58 degrees Calculated T [place] : 43 degrees NORMAL SINUS RHYTHM POSSIBLE LEFT ATRIAL ENLARGEMENT LEFT VENTRICULAR HYPERTROPHY ABNORMAL ECG Confirmed by MING MITCHELL MD ([id number]) on 09/02/2023 9:46:08 PM NAME : ISABEL WADDELL PID : [id number] : 1960 Gender : Female Race : ORD : [id number] Procedure Date : Aug 29 2023 13:01:41 Edit Date : Sep 02 2023 21:46:10 Diagnosis: NORMAL SINUS RHYTHM POSSIBLE LEFT ATRIAL ENLARGEMENT LEFT VENTRICULAR HYPERTROPHY ABNORMAL ECG Confirmed by MING MITCHELL MD ([id number]) on 09/02/2023 9:46:08 PM Test Reason : Location : 119 : A17 A17 Overread By : MING MITCHELL MD Edited By : MING MITCHELL MD Referred By : SOUTH SABA Acquired by : YASMIN AVILA [facility] ECHOon 08-29-2023 Echocardiography Echocardiography Report: Transthoracic Echo [facility] GUNNAR-2 Date of service: 08/29/2023 1:42:07 PM AND [facility]ARING [facility]IN[facility] DIRECTOR Ordering physician: MIKE THOMPSON Indication: Shortness of breath Technologist: Ashlee Mera RD Interpreting physician: Mikki Etienne MD PATIENT: Name: [...] * * Final * * * CC [employer] [facility] : [id number] Normal [facility] HISTORY PHYSICALon 3 HISTORY PHYSICAL HNO ID: [id number] Author: Elder Galan APRN.[employer]DLE[employer] DEVELOPER Service: ? Author Type: Nurse Practitioner Type: [...] team about CBC once drawn. Elder Galan APRN.MONSERRAT Pelvic Floor Colorectal Surgery Risk of morbidity, mortality and/or complications of treatment plan: high Normal [facility] TYPE + SCREENon 08-29-2023 ABO group Nom (Bld) O [facility] Blood group antibody screen Ql Negative [facility] HIstorical Ab Scr Status Negative [facility] Rh Nom (Bld) Positive [facility] Type and Screen Expiration 09/01/2023 23:59 [facility] ABO O Normal [facility] Comment on above: Order Comment: Speci men Type: BLOOD SPECIMENOrdering Facility: [facility] Address: [address] [place] [address] Performed By: #### T SCR ####[facility] BLOOD BANKCLIA [id number] [address] HISTORICAL AB SCR STATUS Negative Normal [facility] Comment on above: Order Comment: Speci men Type: BLOOD SPECIMENOrdering Facility: [facility] Address: [address] [place] [address] Performed By: #### T SCR ####[facility] BLOOD BANKCLIA [id number] [address] OF [facility] Rh Nom (Bld) Positive Normal [facility] Comment on above: Order Comment: Speci men Type: BLOOD SPECIMENOrdering Facility: [facility] Address: [address] [place] [address] Performed By: #### T SCR ####[facility] BLOOD BANKCLIA [id number] [address] TYPE AND SCREEN EXPIRATION 09/01/2023 23:59 Normal [facility] Comment on above: Order Comment: Speci men Type: BLOOD SPECIMENOrdering Facility: [facility] Address: [address] [place] [address] Performed By: #### T SCR ####[facility] BLOOD BANKCLIA [id number] [place] [address], [place] [address] [place] XR CHEST 2V [...] of the thoracic spine. IMPRESSION: See Result. Nuclear Medicine Specialist: DANA Transcribe Date/Time: Aug 29 2023 9:55A Dictated by : KRYSTIAN MULTANI MD This examination was interpreted and the report reviewed and electronically signed by: KRYSTIAN MULTANI MD on Aug 29 2023 9:57AM EST [id number] Normal [facility] CT CHEST WO IVCONon 08-22-20 CT CHEST WO IVCON * * *Final Report* * * DATE OF EXAM: Aug 22 2023 8:49AM [facility] 0541 - CT CHEST WO IVCON [...] wall is unremarkable. Upper abdomen: Prior cholecystectomy. Community Artist (topogram) images: No additional findings. IMPRESSION: 1. No convincing findings of interstitial lung disease. There is excessive dynamic collapse of mainstem bronchi. 2. Unchanged scattered calcified granulomas. No suspicious lung nodules. Nuclear Medicine Specialist: [facility] Transcribe Date/Time: Aug 22 2023 8:56A Dictated by : RICHARD LOVELACE MD This examination was interpreted and the report reviewed and electronically signed by: RICHARD LOVELACE MD on Aug 22 2023 9:01AM EST [id number] Normal [facility] Comprehensive metabolic 2000 panelon 07-05-2023 Albumin [Mass/Vol] 4.0 g/dL 3.9 - 4.9 g/dL [facility] ALP [Catalytic activity/Vol] 161 U/L High 34 - 123 U/L [facility] ALT [Catalytic activity/Vol] 47 U/L High 7 - 38 U/L [facility] Anion gap [Moles/Vol] 11 mmol/L 9 - 18 mmol/L [facility] AST [Catalytic activity/Vol] 41 U/L High 13 - 35 U/L [facility] Bilirubin [Mass/Vol] 0.3 mg/dL 0.2 - 1 .3 mg/dL [facility] Calcium [Mass/Vol] 9.5 mg/dL 8.5 - 10. 2 mg/dL [facility] Chloride [Moles/Vol] 105 mmol/L 97 - 10 5 mmol/L [facility] CO2 [Moles/Vol] 26 mmol/L 22 - 30 mmol/L [facility] Creatinine [Mass/Vol] 0.74 mg/dL 0.58 - 0.96 mg/dL [facility] Estimated Glomerular Filtration Rate 91 mL/min/1.73m >=60 mL/min/1.73m [facility] Glucose [Mass/Vol] 104 mg/dL High 74 - 99 mg/dL [facility] Potassium [Moles/Vol] 4.5 mmol/L 3.7 - 5.1 mmol/L [facility] Protein [Mass/Vol] 6.3 g/dL 6.3 - 8.0 g/dL [facility] Sodium [Moles/Vol] 142 mmol/L 136 - 144 mmol/L [facility] Urea nitrogen [Mass/Vol] 16 mg/dL 7 - 21 mg/dL [facility] CBC W Auto Differential pane l (Bld)on 07-04-2023 Basophils (Bld) [#/Vol] 0.03 10*3/uL <0.11 k/uL [facility] Basophils/100 WBC (Bld) 0.9 % [facility] Differential cell count method Nom (Bld) Auto [facility] Eosinophils (Bld) [#/Vol] 0.16 10*3/uL <0.46 k/uL [facility] Eosinophils/100 WBC (Bld) 4.9 % [facility] Erythrocyte distribution width (RBC) [Ratio] 19.9 % High 11.5 - 15.0 % [facility] Hematocrit (Bld) [Volume fraction] 25.1 % Low 36.0 - 46.0 % [facility] Hemoglobin (Bld) [Mass/Vol] 7.1 g/dL Low 11.5 - 15.5 g/dL [facility] Immature granulocytes (Bld) [#/Vol] <0.10 k/uL [facility] Immature granulocytes/100 WBC (Bld) 0.3 % [facility] Lymphocytes (Bld) [#/Vol] 1.12 10*3/uL 1.00 - 4.00 k/uL [facility] Lymphocytes/100 WBC (Bld) 34.6 % [facility] MCH (RBC) [Entitic mass] 19.2 pg Low 26.0 - 34.0 pg [facility] MCHC (RBC) [Mass/Vol] 28.3 g/dL Low 30.5 - 36.0 g/dL [facility] MCV (RBC) [Entitic vol] 67.8 fL Low 80.0 - 100.0 fL [facility] Monocytes (Bld) [#/Vol] 0.49 10*3/uL <0.87 k/uL [facility] Monocytes/100 WBC (Bld) 15.1 % [facility] Neutrophils (Bld) [#/Vol] 1.43 10*3/uL Low 1.45 - 7.50 k/uL [facility] Neutrophils/100 WBC (Bld) 44.2 % [facility] Nucleated RBC (Bld) [#/Vol] <0.01 k/uL [facility] Nucleated RBC/100 WBC (Bld) [Ratio] 0.0 /100 WBC [facility] Platelet mean volume (Bld) [Entitic vol] 9.8 fL 9.0 - 12.7 fL [facility] Platelets (Bld) [#/Vol] 304 10*3/uL 150 - 400 k/uL [facility] RBC (Bld) [#/Vol] 3.70 10*6/uL Low 3.90 - 5.2 0 m/uL [facility] WBC (Bld) [#/Vol] 3.24 10*3/uL Low 3.70 - 11. 00 k/uL [facility] HEMOGLOBINon 03-21-2023 Hemoglobin (Bld) [Mass/Vol] 9.1 g/dL Critically low 12.0-16.0 [facility] Comment on above: Performed By: #### H GB ####[facility] [address] [place], [place] [address]Jg. Cheryl Monzon XR CHEST 2 Von 03-10-2023 [...] HENRY LOCK Date: 2023-03-10 13:57 Normal [facility] Covid-19 PCR (CVDTB)on SARS-CoV-2 (COVID-19) RNA ANGELA+probe Ql (Unsp spec) Not detected Normal NOT DETECTED [facility] Comment on above: Result Comment: When diagnostic [...] for this test is supported by the [place] of Health and Human Service's declaration that [...] used). Performed By: #### C VDTBH #### [facility] [address] [place] [address] Dr. Cheryl Monzon INFLUENZA A AND B AGon 01-20 [facility] SEE BELOW Normal [facility] Comment on above: Result Comment: Nega tive for Flu A protein angiten. Infection due to Flu A cannot be ruled out. Flu A angiten in the sample may be below the detection limit of the test. Performed By: #### I NFLUAB #### [facility] [address] [place] [address] Dr. Cheryl Mon[facility] BELOW Normal [facility] Comment on above: Result Comment: Nega tive for Flu B protein antigen. Infection due to Flu B cannot be ruled out. Flu B antigen in the sample may be below the detection limit of the test. Performed By: #### I NFLUAB #### [facility] [address] [place] [address] Dr. Cheryl Monzon INFLUENZA A AG Negative Normal NEGATIVE SEE COMMENT [facility] Comment on above: Performed By: #### I NFLUAB #### [facility] [address] [place] [address] [address] Cheryl Monzon INFLUENZA B AG Negative Normal NEGATIVE SEE COMMENT [facility] Comment on above: Performed By: #### I NFLUAB #### [facility] [address] [place] [address] [address] Cheryl Monzon FERRITIN BLDon 01-04-2023 Ferritin [Mass/Vol] 14.2 ng/mL Low 14.7 - 2 05.1 ng/mL [facility] Iron and Iron binding capaci ty panelon 01-04-2023 Iron [Mass/Vol] 77 ug/dL 41 - 186 ug/dL [facility] Iron binding capacity [Mass/Vol] 382 ug/dL 232 - 386 ug/dL [facility] Iron/TIBC [Molar ratio] 20.2 % 15.0 - 57.0 % [facility] CBC W Auto Differential pane l (Bld)on 01-03-2023 Basophils (Bld) [#/Vol] <0.11 k/uL [facility] Basophils/100 WBC (Bld) 0.4 % [facility] Differential cell count method Nom (Bld) Auto [facility] Eosinophils (Bld) [#/Vol] 0.14 10*3/uL <0.46 k/uL [facility] Eosinophils/100 WBC (Bld) 3.1 % [facility] Erythrocyte distribution width (RBC) [Ratio] 13.0 % 11.5 - 15.0 % [facility] Hematocrit (Bld) [Volume fraction] 35.4 % Low 36.0 - 46.0 % [facility] Hemoglobin (Bld) [Mass/Vol] 11.5 g/dL 11.5 - 15.5 g/dL [facility] Immature granulocytes (Bld) [#/Vol] <0.10 k/uL [facility] Immature granulocytes/100 WBC (Bld) 0.2 % [facility] Lymphocytes (Bld) [#/Vol] 1.31 10*3/uL 1.00 - 4.00 k/uL [facility] Lymphocytes/100 WBC (Bld) 29.0 % [facility] MCH (RBC) [Entitic mass] 30.0 pg 26.0 - 34.0 pg [facility] MCHC (RBC) [Mass/Vol] 32.5 g/dL 30.5 - 36.0 g/dL [facility] MCV (RBC) [Entitic vol] 92.4 fL 80.0 - 100.0 fL [facility] Monocytes (Bld) [#/Vol] 0.50 10*3/uL <0.87 k/uL [facility] Monocytes/100 WBC (Bld) 11.1 % [facility] Neutrophils (Bld) [#/Vol] 2.53 10*3/uL 1.45 - 7.50 k/uL [facility] Neutrophils/100 WBC (Bld) 56.2 % [facility] Nucleated RBC (Bld) [#/Vol] <0.01 k/uL [facility] Nucleated RBC/100 WBC (Bld) [Ratio] 0.0 /100 WBC [facility] Platelet mean volume (Bld) [Entitic vol] 9.9 fL 9.0 - 12.7 fL [facility] Platelets (Bld) [#/Vol] 235 10*3/uL 150 - 400 k/uL [facility] RBC (Bld) [#/Vol] 3.83 10*6/uL Low 3.90 - 5.2 0 m/uL [facility] WBC (Bld) [#/Vol] 4.51 10*3/uL 3.70 - 11. 00 k/uL [facility] Covid-19 PCR ([facility])on SARS-CoV-2 (COVID-19) RNA ANGELA+probe Ql (Unsp spec) Not detected Normal NOT DETECTED [facility] Comment on above: Result Comment: When diagnostic [...] for this test is supported by the [place] [employer] and Human Service's declaration that [...] used). Performed By: #### C VDTB #### [facility] [address] [place] [address] Dr. Cheryl Monzon INFLUENZA A AND B AGon 11-19 [facility] SEE BELOW Normal [facility] Comment on above: Result Comment: Nega tive for Flu A protein angiten. Infection due to Flu A cannot be ruled out. Flu A angiten in the sample may be below the detection limit of the test. Performed By: #### I NFLUAB #### [facility] [address] [place] [address] Dr. Cheryl Mon[facility] SEE BELOW Normal [facility] Comment on above: Result Comment: Nega tive for Flu B protein antigen. Infection due to Flu B cannot be ruled out. Flu B antigen in the sample may be below the detection limit of the test. Performed By: #### I NFLUAB #### [facility] [address] [place] [address] Dr. Cheryl Monzon INFLUENZA A AG Negative Normal NEGATIVE SEE COMMENT [facility] Comment on above: Performed By: #### I NFLUAB #### [facility] [address] [place] [address] Dr. Cheryl Monzon INFLUENZA B AG Negative Normal NEGATIVE SEE COMMENT [facility] Comment on above: Performed By: #### I NFLUAB #### [facility] [address] [place] [address] Dr. Cheryl Monzon MG MAMM SCREEN 3D RAGHU CADon 10-04-2022 MG MAMM SCREEN 3D RAGHU CAD Patient: ISABEL WADDELL Exam Date: 10/04/2022 : 1960 Gender:F Ordering : DR ROLAND SERRANO D.O. Admission #: [id number] Family : Order #: [id number] CLICK HERE TO VIEW EXAM RADIOLOGY REPORT [...] Treatments radiation-hysterectomy Family Cancers None LOCATION: [facility] BREAST COMPOSITION: Scattered areas fibroglandular density. FINDINGS: [...] MD on 10/04/2022 at 13:53 Normal [facility] COLONOSCOPY (THERAPEUTIC)on 09-26-2022 [facility] T3, TOTAL (TRIIODOTHYRONINE) on 09-05-2022 T3, TOTAL 132 ng/dL Normal 71-180 [facility] Comment on above: Performed By: #### T 3TOTAL ####[facility] [address] [place], [place] [address]Dr. Cheryl Monzon CBC AUTO DIFFon 09-04-2022 BASO # 0.0 103/ul Normal 0.0-0.1 [facility] Comment on above: Performed By: #### C BC ####[facility] [address] [place], [place] [address]Dr. Cheryl Monzon Basophils/100 WBC (Bld) 0.4 % Normal 0.2-2.0 [facility] Comment on above: Performed By: #### C BC ####[facility] [address] [place] [address]Dr. Cheryl Monzon EO # 0.1 103/ul Normal 0.0-0.7 [facility] Comment on above: Performed By: #### C BC ####[facility] [address] [place], [place] [address]Dr. Cheryl Monzon Eosinophils/100 WBC (Bld) 4.9 % Normal 0.9-7.0 [facility] Comment on above: Performed By: #### C BC ####[facility] [address] [place] [address]Dr. Cheryl Monzon Erythrocyte distribution width (RBC) [Ratio] 12.8 % Normal 11.0-15.0 [facility] Comment on above: Performed By: #### C BC ####[facility] [address] [place], [place] [address]Dr. Cheryl Monzon Hematocrit (Bld) [Volume fraction] 36.7 % Normal 36.0-48.0 [facility] Comment on above: Performed By: #### C BC ####[facility] [address] [place], [place] [address]Dr. Cheryl Monzon Hemoglobin (Bld) [Mass/Vol] 11.8 g/dL Critically low 12.0-16.0 [facility] Comment on above: Performed By: #### C BC ####[facility] [address] [place], [place] [address]Dr. Cheryl Monzon IG # 0.01 10e3/ul Normal 0.00-0.03 [facility] Comment on above: Performed By: #### C BC ####[facility] [address] [place], [place] [address]Dr. Cheryl Monzon IG % 0.4 % Normal 0.0-0.5 [facility] Comment on above: Performed By: #### C BC ####[facility] [address] [place], [place] [address]Dr. Cheryl Monzon LYMPH # 0.8 103/ul Critically low 1.2-3.8 [facility] Comment on above: Performed By: #### C BC ####[facility] [address] [place], [place] [address]Dr. Cheryl Monzon Lymphocytes/100 WBC (Bld) 28.6 % Normal 20.5-60.0 [facility] Comment on above: Performed By: #### C BC ####[facility] [address] [place], [place] [address]Dr. Cheryl Monzon MANUAL DIFF REQ NO Normal [facility] Comment on above: Performed By: #### C BC ####[facility] [address] [place] [address]Dr. Cheryl Monzon MCH (RBC) [Entitic mass] 30.7 pg Normal 26.7-34.0 [facility] Comment on above: Performed By: #### C BC ####[facility] [address] [place] [address]Dr. Cheryl Monzon MCHC (RBC) [Mass/Vol] 32.2 g/dL Normal 29.9-35.2 [facility] Comment on above: Performed By: #### C BC ####[facility] [address] [place] [address]Dr. Lissettalden Monzon MCV (RBC) [Entitic vol] 95.6 fL Normal 81.0-99.0 [facility] Comment on above: Performed By: #### C BC ####[facility] [address] [place], [place] [address]Dr. Cheryl Monzon MONO # 0.3 103/ul Normal 0.3-0.8 [facility] Comment on above: Performed By: #### C BC ####[facility] [address] [place], [place] [address]Dr. Lissettalden Monzon Monocytes/100 WBC (Bld) 11.7 % Normal 1.7-12.0 [facility] Comment on above: Performed By: #### C BC ####[facility] [address] [place], [place] [address]Dr. Lissettalden Monzon NEUT # 1.4 103/ul Normal 1.4-6.5 [facility] Comment on above: Performed By: #### C BC ####[facility] [address] [place], [place] [address]Dr. Cheryl Monzon Neutrophils/100 WBC (Bld) 54.0 % Normal 43.0-75.0 [facility] Comment on above: Performed By: #### C BC ####[facility] [address] [place], [place] [address]Dr. Cheryl Monzon Platelet mean volume (Bld) [Entitic vol] 9.2 fL Critically low 9.5-13.5 [facility] Comment on above: Performed By: #### C BC ####[facility] [address] [place], [place] [address]Vb. Cheryl Monzon PLT 217 103/ul Normal 150-450 [facility] Comment on above: Performed By: #### C BC ####[facility] [address] [place], [place] [address]Hh. Cheryl Monzon RBC 3.84 106/ul Critically low 4.20-5.40 [facility] Comment on above: Performed By: #### C BC ####[facility] [address] [place], [place] [address]Va. Cheryl Monzon WBC 2.7 103/ul Critically low 4.0-11.0 [facility] Comment on above: Performed By: #### C BC ####[facility] [address] [place], [place] [address]ItStephan Monzon FREE T4on 09-04-2022 Free T4 [Mass/Vol] 0.83 ng/dL Normal 0.76-1.46 [facility] Comment on above: Performed By: #### F T4 #### [facility] [address] [place] [address] [address] Cheryl Monzon GLYCOHEMOGLOBIN A1Con 2021 ADA RECOMMENDATION SEE BELOW Normal [facility] Comment on above: Result Comment: ADA RECOMMENDED LIMIT 4.0 - 6.0 ADA THERAPEUTIC TARGET < 7.0 ACTION SUGGESTED > 7.0 Performed By: #### A 1C #### [facility] [address] [address] [address] Cheryl Monzon Glucose [Mass/Vol] 111 mg/dL Normal [facility] Comment on above: Performed By: #### A 1C #### [facility] [address] [address] [address] Cheryl Monzon HbA1c (Bld) [Mass fraction] 5.5 % Normal 4.5-6.2 [facility] Comment on above: Performed By: #### A 1C #### [facility] [address] [address] [address] Cheryl Monzon LIPID PROFILEon 09-04-2022 CHOL-HDL RATIO NORM SEE BELOW Normal [facility] Comment on above: Result Comment: 3.3 - 4.4 LOW RISK 4.4 - 7.1 AVERAGE RISK 7.1 - 11.0 MODERATE RISK >11.0 HIGH RISK Performed By: #### T SH, LIPID, CMP ####[facility] [address] [place], [place] [address]Fh. Cheryl Monzon Cholesterol [Mass/Vol] 201 mg/dL Critically high <=200 [facility] Comment on above: Performed By: #### T SH, LIPID, CMP ####[facility] [address] [id number]. Cheryl Monzon Cholesterol in HDL [Mass/Vol] 78 mg/dL Critically high 40-60 [facility] Comment on above: Performed By: #### T SH, LIPID, CMP ####[facility] [address] [id number]. Cheryl Monzon Cholesterol in LDL [Mass/Vol] 112.8 mg/dL Normal [facility] Comment on above: Performed By: #### T SH, LIPID, CMP ####[facility] [address] [place], [place] [address]Al. Cheryl Monzon Cholesterol.total/Chol esterol in HDL [Mass ratio] 2.6 {ratio} Normal [facility] Comment on above: Performed By: #### T SH, LIPID, CMP ####[facility] [address] [place], [place] [address]Lo. Cheryl Monzon HDL NORMAL > or = 60 mg/dl - LO W CARDIOVASCULAR RISK <40 mg/dl - HIGH CARDIOVASCULAR RISK Normal [facility] Comment on above: Performed By: #### T SH, LIPID, CMP ####[facility] [id number] [id number]. Cheryl Monzon LDL CALC NORMAL SEE BELOW Normal [facility] Comment on above: Result Comment: <100 mg/dl OPTIMAL 100 - 129 mg/dl NEAR OR ABOVE OPTIMAL 130 - 159 mg/dl BORDERLINE HIGH 160 - 189 mg/dl HIGH >190 mg/dl VERY HIGH Performed By: #### T SH, LIPID, CMP ####[facility] [address] [place], [place] [address]EeDr. Cheryl Monzon Triglyceride [Mass/Vol] 51 mg/dL Normal <=150 [facility] Comment on above: Performed By: #### T SH, LIPID, CMP ####[facility] [address] [place], [place] [address]DbDr. Cheryl Monzon VLDL CALC 10.2 mg/dL Normal [facility] Comment on above: Performed By: #### T SH, LIPID, CMP ####[facility] [address] [place], [place] [address]VrDr. Cheryl Monzon PROF 14(COMP METB)on 022 Albumin [Mass/Vol] 3.3 g/dL Critically low 3.4-5.0 Th [facility] Comment on above: Performed By: #### T SH, LIPID, CMP #### [facility] [address] [address] [address] Cheryl Monzon Albumin/Globulin [Mass ratio] 1.0 {ratio} Normal [facility] Comment on above: Performed By: #### T SH, LIPID, CMP #### [facility] [address] [address] [address] Cheryl Monzon ALP [Catalytic activity/Vol] 94 U/L Normal 46-116 [facility] Comment on above: Performed By: #### T SH, LIPID, CMP #### [facility] [address] [address] [address] Cheryl Monzon ALT [Catalytic activity/Vol] 53 U/L Normal 14-59 [facility] Comment on above: Performed By: #### T SH, LIPID, CMP #### [facility] [address] [address] [address] Cheryl Monzon Anion gap [Moles/Vol] 8.8 mmol/L Normal [facility] Comment on above: Performed By: #### T SH, LIPID, CMP #### [facility] [address] [address] [address] Cheryl Monzon AST [Catalytic activity/Vol] 42 U/L Critically high 15-37 [facility] Comment on above: Performed By: #### T SH, LIPID, CMP #### [facility] [address] [place] [address] Dr. Cheryl Monzon Bilirubin [Mass/Vol] 0.3 mg/dL Normal 0.2-1.0 [facility] Comment on above: Performed By: #### T SH, LIPID, CMP #### [facility] [address] [place] [address] Dr. Cheryl Monzon Calcium [Mass/Vol] 8.8 mg/dL Normal 8.5-10.1 [facility] Comment on above: Performed By: #### T SH, LIPID, CMP #### [facility] [address] [place] [address] Dr. Cheryl Monzon Chloride [Moles/Vol] 106 mmol/L Normal 98-107 [facility] Comment on above: Performed By: #### T SH, LIPID, CMP #### [facility] [address] [place] [address] Dr. Cheryl Monzon CO2 [Moles/Vol] 30.7 mmol/L Normal 21.0-32.0 [facility] Comment on above: Performed By: #### T SH, LIPID, CMP #### [facility] [address] [place] [address] Dr. Chreyl Monzon Creatinine [Mass/Vol] 0.66 mg/dL Normal 0.55-1.02 [facility] Comment on above: Performed By: #### T SH, LIPID, CMP #### [facility] [address] [place] [address] Dr. Cheryl Monzon EGFR-AF [place]IZ[place] >60 Normal >=60 [facility] Comment on above: Performed By: #### T SH, LIPID, CMP #### [facility] [address] [place] [address] Dr. Cheryl Monzon EGFR-NON AF [place] >60 Normal >=60 [facility] Comment on above: Performed By: #### T SH, LIPID, CMP #### [facility] [address] [place] [address] Dr. Cheryl Monzon Globulin (S) [Mass/Vol] 3.4 g/dL Normal [facility] Comment on above: Performed By: #### T PUSHPA, LIPID, CMP #### [facility] [address] [address] [address] Cheryl Monzon Glucose [Mass/Vol] 115 mg/dL Critically high 74-106 [facility] Comment on above: Performed By: #### T PUSHPA, LIPID, CMP #### [facility] [address] [address] [address] Cheryl Monzon Potassium [Moles/Vol] 4.5 mmol/L Normal 3.5-5.1 [facility] Comment on above: Performed By: #### T PUSHPA LIPID, CMP #### [facility] [address] [place] [address] Dr. Cheryl Monzon Protein [Mass/Vol] 6.7 g/dL Normal 6.4-8.2 [facility] Comment on above: Performed By: #### T PUSHPA LIPID, CMP #### [facility] [address] [place] [address] Dr. Cheryl Monzon Sodium [Moles/Vol] 141 mmol/L Normal 136-145 [facility] Comment on above: Performed By: #### T PUSHPA LIPID, CMP #### [facility] [address] [place] [address] Dr. Cheryl Monzon Urea nitrogen [Mass/Vol] 16.0 mg/dL Normal 7.0-18.0 [facility] Comment on above: Performed By: #### T PUSHPA, LIPID, CMP #### [facility] [address] [place] [address] Dr. Cheryl Monzon Urea nitrogen/Creatinine [Mass ratio] 24.2 mg/mg Normal [facility] Comment on above: Performed By: #### T PUSHPA, LIPID, CMP #### [facility] [address] [place] [address] Dr. Cheryl Monzon TSHon 09-04-2022 TSH 0.009 uIU/mL Critically low 0.358-3.740 [facility] Comment on above: Performed By: #### T PUSHPA, LIPID, CMP #### [facility] [address] [id number] Cheryl Monzon Covid-19 PCR (CVDTB)on 05-18 SARS-CoV-2 (COVID-19) RNA ANGELA+probe Ql (Unsp spec) Not detected Normal NOT DETECTED [facility] Comment on above: Result Comment: When diagnostic [...] for this test is supported by the [place] of Health and Human Service's declaration that [...] longer be used). Performed By: #### [facility] #### [facility] [address] [place] [address] Abdomen and Pelvis [...] any questions regarding this interpretation, please call [phone]. If you are unable to reach us at the number above, please feel free to contact [facility] at [phone]. DIVISION OF RADIOLOGY * * *Final Report* * * DATE OF EXAM: Dec 13 2021 9:56AM [facility] 0530 - CT ABD/PEL W IVCON / [...] performed concurrently and will be dictated separately. Community Artist (topogram) images: No additional findings. DIVISION OF RADIOLOGY Provider, [facility]ast[facility] - 12/13/2021 * * *Final Report* * * DATE OF EXAM: Dec 13 2021 9:56AM [facility] 0530 - CT ABD/PEL W IVCON / [...] performed concurrently and will be dictated separately. Community Artist (topogram) images: No additional findings. IMPRESSION IMPRESSION: [...] any questions regarding this interpretation, please call [phone]. If you are unable to reach us at the number above, please feel free to contact [facility] at [phone]. [facility] CT Abdomen and Pelvis W cont rast IVOrdered By: [facility] Provider on 12-13-[address] [facility] [address] Chest W contrast [place] IMPRESSION: No [...] any questions regarding this interpretation, please call [phone]. If you are unable to reach us at the number above, please feel free to contact [facility] at [phone]. DIVISION OF RADIOLOGY * * *Final Report* * * DATE OF EXAM: Dec 13 2021 9:56AM [facility] 0539 - CT CHEST W IVCON / [...] performed concurrently and will be dictated separately. Community Artist (topogram) images: No additional findings. DIVISION OF RADIOLOGY Provider, [facility] - 12/13/2021 * * *Final Report* * * DATE OF EXAM: Dec 13 2021 9:56AM [facility] 0539 - CT CHEST W IVCON / [...] performed concurrently and will be dictated separately. Community Artist (topogram) images: No additional findings. IMPRESSION IMPRESSION: [...] any questions regarding this interpretation, please call [phone]. If you are unable to reach us at the number above, please feel free to contact [facility] at [phone]. [facility] No Panel Informationon 12-13 Radiology Study observation (narrative) [facility] CBC with Diffon 11-22-2021 Abs. Basophil 0.00 k/uL Normal 0.0-0.2 [facility] Comment on above: Performed By: #### C DP, CMPX, SED, LAC #### [facility] [address] [place] [address] Cattle Tester: Jacob Campos MD Abs.Neutrophil (Seg) 2.80 k/uL Normal 2.5-7.0 [facility] Comment on above: Performed By: #### C DP, CMPX, SED, LAC #### [facility] [address] [place] [address] Cattle Tester: Jacob Campos MD Auto Diff Performed YES Normal [facility] Comment on above: Performed By: #### C DP, CMPX, SED, LAC #### [facility] [address] [place] [address] Cattle Tester: Jacob Campos MD Basophils/100 WBC (Bld) 1 % Normal 0-2 [facility] Comment on above: Performed By: #### C DP, CMPX, SED, LAC #### [facility] [address] [phone] Cattle Tester: Jacob Campos MD Eosinophils (Bld) [#/Vol] 0.10 10*3/uL Normal 0.0-0.4 [facility] Comment on above: Performed By: #### C DP, CMPX, SED, LAC #### [facility] [address] [place] [address] Cattle Tester: Jacob Campos MD Eosinophils/100 WBC (Bld) 3 % Normal 0-5 [facility] Comment on above: Performed By: #### C DP, CMPX, SED, LAC #### [facility] [address] [phone] Cattle Tester: Jacob Campos MD Erythrocyte distribution width (RBC) [Ratio] 13.6 % Normal 12.1-15.2 [facility] Comment on above: Performed By: #### C DP, CMPX, SED, LAC #### [facility] [address] [phone] Cattle Tester: Jacob Campos MD Hematocrit (Bld) [Volume fraction] 33.4 % Low 36-46 [facility] Comment on above: Performed By: #### C DP, CMPX, SED, LAC #### [facility] [address] [phone] Cattle Tester: Jacob Campos MD Hemoglobin (Bld) [Mass/Vol] 11.3 g/dL Low 12.0-16.0 [facility] Comment on above: Performed By: #### C DP, CMPX, SED, LAC #### [facility] [address] [phone] Cattle Tester: Jacob Campos MD Lymphocytes (Bld) [#/Vol] 0.80 10*3/uL Low 1.0-4.8 [facility] Comment on above: Performed By: #### C DP, CMPX, SED, LAC #### [facility] [address] [place] [address] Cattle Tester: Jacob Campos MD Lymphocytes/100 WBC (Bld) 19 % Normal 15-40 [facility] Comment on above: Performed By: #### C DP, CMPX, SED, LAC #### [facility] [address] [place] [address] Cattle Tester: Jacob Campos MD MCH (RBC) [Entitic mass] 30.5 pg Normal 26-34 [facility] Comment on above: Performed By: #### C DP, CMPX, SED, LAC #### [facility] [address] [phone] Cattle Tester: Jacob Campos MD MCHC (RBC) [Mass/Vol] 33.8 g/dL Normal 31-37 [facility] Comment on above: Performed By: #### C DP, CMPX, SED, LAC #### [facility] [address] [place] [address] Cattle Tester: Jacob Campos MD MCV (RBC) [Entitic vol] 90.4 fL Normal 80-100 [facility] Comment on above: Performed By: #### C DP, CMPX, SED, LAC #### [facility] [address] [phone] Cattle Tester: Jacob Campos MD Monocytes (Bld) [#/Vol] 0.50 10*3/uL Normal 0.0-1.0 [facility] Comment on above: Performed By: #### C DP, CMPX, SED, LAC #### [facility] [address] [place], [place] [id number] Cattle Tester: Jacob Campos MD Monocytes/100 WBC (Bld) 12 % High 4-8 [facility] Comment on above: Performed By: #### C DP, CMPX, SED, LAC #### [facility] [address] [place], [place] [phone] Cattle Tester: Jacob Campos MD Neutrophil (Seg) 65 % Normal 47-75 [facility] Comment on above: Performed By: #### C DP, CMPX, SED, LAC #### [facility] [address] [place], [place] [phone] Cattle Tester: Jacob Campos MD Platelets (Bld) [#/Vol] 378 10*3/uL Normal 140-450 [facility] Comment on above: Performed By: #### C DP, CMPX, SED, LAC #### [facility] [address] [place], [place] [phone] Cattle Tester: Jacob Campos MD RBC (Bld) [#/Vol] 3.70 10*6/uL Low 4.0-5.2 [facility] Comment on above: Performed By: #### C DP, CMPX, SED, LAC #### [facility] [address] [place] [address] Cattle Tester: Jacob Campos MD WBC (Bld) [#/Vol] 4.3 10*3/uL Normal 3.5-11.0 [facility] Comment on above: Performed By: #### C DP, CMPX, SED, LAC #### [facility] [address] [place], [place] [phone] Cattle Tester: Jacob Campos MD Comp Metabolic Pr/rfx MGon 0 11-22-2021 (cont.) Normal [facility] Comment on above: Result Comment: Aver age GFR for 60-69 years old: 85 mL/min/1.73sq m Chronic Kidney Disease: <60 mL/min/1.73sq m Kidney failure: <15 mL/min/1.73sq m eGFR calculated using average adult body mass. Additional eGFR calculator available at: http://www.auctionPAL/multiple_crcl_2012.htm Performed By: #### C DP, CMPX, SED, LAC #### [facility] [address] [place] [address] Cattle Tester: Jacob Campos MD Albumin [Mass/Vol] 3.5 g/dL Normal 3.5-5.2 [facility] Comment on above: Performed By: #### C DP, CMPX, SED, LAC #### [facility] [address] [place] [address] Cattle Tester: Jacob Campos MD Alkaline Phos 239 U/L High 35-104 [facility] Comment on above: Performed By: #### C DP, CMPX, SED, LAC #### [facility] [address] [phone] Cattle Tester: Jacob Campos MD ALT [Catalytic activity/Vol] 23 U/L Normal 5-33 [facility] Comment on above: Performed By: #### C DP, CMPX, SED, LAC #### [facility] [address] [place] [address] Cattle Tester: Jacob Campos MD Anion gap [Moles/Vol] 11 mmol/L Normal 9-17 [facility] Comment on above: Performed By: #### C DP, CMPX, SED, LAC #### [facility] [address] [place], [place] [phone] Cattle Tester: Jacob Campos MD AST [Catalytic activity/Vol] 21 U/L Normal <32 [facility] Comment on above: Performed By: #### C DP, CMPX, SED, LAC #### [facility] [address] [place], [place] [phone] Cattle Tester: Jacob Campos MD Bilirubin [Mass/Vol] 0.27 mg/dL Low 0.30-1.20 [facility] Comment on above: Performed By: #### C DP, CMPX, SED, LAC #### [facility] [address] [phone] Cattle Tester: Jacob Campos MD BUN/CRE Ratio 22 High 9-20 [facility] Comment on above: Performed By: #### C DP, CMPX, SED, LAC #### [facility] [address] [place] [address] Cattle Tester: Jacob Campos MD Calcium [Mass/Vol] 9.5 mg/dL Normal 8.6-10.4 [facility] Comment on above: Performed By: #### C DP, CMPX, SED, LAC #### [facility] [address] [place] [address] Cattle Tester: Jacob Campos MD Chloride [Moles/Vol] 102 mmol/L Normal 98-107 [facility] Comment on above: Performed By: #### C DP, CMPX, SED, LAC #### [facility] [address] [phone] Cattle Tester: Jacob Campos MD CO2 [Moles/Vol] 26 mmol/L Normal 20-31 [facility] Comment on above: Performed By: #### C DP, CMPX, SED, LAC #### [facility] [address] [phone] Cattle Tester: Jacob Campos MD Creatinine [Mass/Vol] 0.58 mg/dL Normal 0.50-0.90 [facility] Comment on above: Performed By: #### C DP, CMPX, SED, LAC #### [facility] [address] [phone] Cattle Tester: Jacob Campos MD GFR, Amer >60 Normal >60 [facility] Comment on above: Performed By: #### C DP, CMPX, SED, LAC #### [facility] [address] [place], [place] [phone] Cattle Tester: Jacob Campos MD GFR,non Amer >60 Normal >60 [facility] Comment on above: Performed By: #### C DP, CMPX, SED, LAC #### [facility] [address] [place] [address] Cattle Tester: Jacob Campos MD Glucose [Mass/Vol] 109 mg/dL High 70-99 [facility] Comment on above: Performed By: #### C DP, CMPX, SED, LAC #### [facility] [address] [place], [place] [phone] Cattle Tester: Jacob Campos MD Potassium [Moles/Vol] 3.7 mmol/L Normal 3.7-5.3 [facility] Comment on above: Performed By: #### C DP, CMPX, SED, LAC #### [facility] [address] [place], [place] [phone] Cattle Tester: Jacob Campos MD Protein [Mass/Vol] 7.0 g/dL Normal 6.4-8.3 [facility] Comment on above: Performed By: #### C DP, CMPX, SED, LAC #### [facility] [address] [place], [place] [phone] Cattle Tester: Jacob Campos MD Sodium [Moles/Vol] 139 mmol/L Normal 135-144 [facility] Comment on above: Performed By: #### C DP, CMPX, SED, LAC #### [facility] [address] [place], [place] [phone] Cattle Tester: Jacob Campos MD Urea nitrogen [Mass/Vol] 13 mg/dL Normal 8-23 [facility] Comment on above: Performed By: #### C DP, CMPX, SED, LAC #### [facility] [address] [place] [address] Cattle Tester: Jacob Campos MD Lactic Acidon 11-22-2021 Lactate [Moles/Vol] 0.7 mmol/L Normal 0.5-2.2 [facility] Comment on above: Performed By: #### C DP, CMPX, SED, LAC #### [facility] [address] [place] [address] Cattle Tester: Jacob Campos MD Sedimentation Rateon 022 Sedimentation Rate 48 mm High 0-30 [facility] Comment on above: Performed By: #### C DP, CMPX, SED, LAC #### [facility] [address] [phone] Cattle Tester: Jacob Campos MD Urinalysis, Routineon 2021 Bilirubin, SemiQt,Ur Negative Normal NEG [facility] Comment on above: Performed By: #### U A #### [facility] [address] [place] [address] Cattle Tester: Jacob Campos MD Blood, Urine Negative Normal NEG [facility] Comment on above: Performed By: #### U A #### [facility] [address] [place] [address] Cattle Tester: Jacob Campos MD Clarity (U) Clear Normal CLEAR [facility] Comment on above: Performed By: #### U A #### [facility] [address] [place] [address] Cattle Tester: Jacob Campos MD Color (U) Yellow Normal YEL [facility] Comment on above: Performed By: #### U A #### [facility] [address] [place] [address] Cattle Tester: Jacob Campos MD Comment Normal [facility] Comment on above: Performed By: #### U A #### [facility] [address] [place], [place] [phone] Cattle Tester: Jacob Campos MD Glucose Ql (U) Negative Normal NEG [facility] Comment on above: Performed By: #### U A #### [facility] [address] [place], [place] [id number] Cattle Tester: Jacob Campos MD Ketones Ql (U) Negative Normal NEG [facility] Comment on above: Performed By: #### U A #### [facility] [address] [place] [address] Cattle Tester: Jacob Campos MD Leukocyte esterase Test strip Ql (U) Negative Normal NEG [facility] Comment on above: Performed By: #### U A #### [facility] [address] [place], [place] [phone] Cattle Tester: Jacob Campos MD Nitrite,Ur Negative Normal NEG [facility] Comment on above: Performed By: #### U A #### [facility] [address] [place], [place] [phone] Cattle Tester: Jacob Campos MD PH,Ur 6.5 Normal 5.0-8.0 [facility] Comment on above: Performed By: #### U A #### [facility] [address] [place], [place] [phone] Cattle Tester: Jacob Campos MD Protein Ql (U) Negative Normal NEG [facility] Comment on above: Performed By: #### U A #### [facility] [address] [place], [place] [phone] Cattle Tester: Jacob Campos MD Spec. [place],Ur 1.015 Normal 1.005-1.030 [facility] Comment on above: Performed By: #### U A #### [facility] [address] [place], [place] [phone] Cattle Tester: Jacob Campos MD Urobilinogen,Ur Normal Normal NORM [facility] Comment on above: Performed By: #### U A #### [facility] [address] [place], [place] [phone] Cattle Tester: Jacob Campos MD Basic Metabolic Panelon Calcium [Mass/Vol] 9.4 mg/dL Normal 8.2-10.[address] [facility] Comment on above: Performed By: #### C BC, BMP #### [facility] [address] Chloride [Moles/Vol] 101 mmol/L Normal 95-114 [facility] Comment on above: Performed By: #### C BC, BMP #### [facility] [address] CO2 [Moles/Vol] 26.3 mmol/L Normal 22.0-30.0 [facility] Comment on above: Performed By: #### C BC, BMP #### [facility] [address] Creatinine [Mass/Vol] 0.72 mg/dL Normal 0.44-1.03 [facility] Comment on above: Performed By: #### C BC, BMP #### [facility] [address] [place] [address] [place] Creatinine Clr Calc Pharmacy 76.81 [facility] Comment on above: Result Comment: PERF ORMED BY: [place] [address] PATHOLOGIST JUNIOR SOFTWARE DEVELOPER CLAIRE ANTHONY M.D. Performed By: #### C BC, BMP #### [facility] [address] [place] [address] [place] Estimated GFR ( Damon > 60 Normal [facility] Comment on above: Result Comment: GFR estimated reference range: According to KDOQI guidelines, <60 ml/min/1.73m2 is sufficient to diagnose a patient with chronic kidney disease. Performed By: #### C BC, BMP #### [facility] [address] Estimated GFR (Non- Am > 60 Normal [facility] Comment on above: Performed By: #### C BC, BMP #### [facility] [address] Glucose [Mass/Vol] 104 mg/dL High 70-[address] [facility] Comment on above: Result Comment: [facility] Glucose Reference Range is dependent on time and content of last meal. Glucose of more than 200 mg/dL in a nonstressed, ambulatory subject supports the diagnosis of Diabetes Mellitus. ADA recommended reference range Performed By: #### C BC, BMP #### [facility] [address] Potassium [Moles/Vol] 3.8 mmol/L Normal 3.5-5.1 [facility] Comment on above: Performed By: #### C BC, BMP #### [facility] [address] Sodium [Moles/Vol] 138 mmol/L Normal 136-[address] [facility] Comment on above: Performed By: #### C BC, BMP #### [address] Urea nitrogen [Mass/Vol] 13 mg/dL Normal 9-23 [facility] Comment on above: Performed By: #### C BC, BMP #### [facility] [address] CBC with Diffon 11-21-2021 Abs.Imm.Granulocyte NOT REPORTED Normal 0.00-0.30 [facility] Comment on above: Performed By: #### C DP, CMPX, SED, LAC #### [facility] [address] [place] [address] Cattle Tester: Jacob Campos MD Immature Granulocyte NOT REPORTED Normal 0 [facility] Comment on above: Performed By: #### C DP, CMPX, SED, LAC #### [facility] [address] [place], [place] [id number] Cattle Tester: Jacob Campos MD MPV NOT REPORTED Normal 6.0-12.0 [facility] Comment on above: Performed By: #### C DP, CMPX, SED, LAC #### [facility] [address] [place], [place] [id number] Cattle Tester: Jacob Campos MD NRBC Automated NOT REPORTED Normal [facility] Comment on above: Performed By: #### C DP, CMPX, SED, LAC #### [facility] [address] [place], [place] [id number] Cattle Tester: Jacob Campos MD Platelet Comment NOT REPORTED Normal [facility] Comment on above: Performed By: #### C DP, CMPX, SED, LAC #### [facility] [address] [place], [place] [id number] Cattle Tester: Jacob Campos MD RBC morphology finding Nom (Bld) NOT REPORTED Normal [facility] Comment on above: Performed By: #### C DP, CMPX, SED, LAC #### [facility] [address] [place], [place] [id number] Cattle Tester: Jacob Campos MD WBC Morphology NOT REPORTED Normal [facility] Comment on above: Performed By: #### C DP, CMPX, SED, LAC #### [facility] [address] [place] [address] Cattle Tester: Jacob Campos MD Comp Metabolic Pr/rfx MGon 0 - Albumin/Glob Ratio NOT REPORTED Normal 1.0-2.5 [facility] Comment on above: Performed By: #### C DP, CMPX, SED, LAC #### [facility] [address] [place], [place] [id number] Cattle Tester: Jacob Campos MD Staging: NOT REPORTED Normal [facility] Comment on above: Performed By: #### C DP, CMPX, SED, LAC #### [facility] [address] [place] [address] Cattle Tester: Jacob Campos MD Complete Blood Count Auto Di ffon 11-21-2021 Basophils (Bld) [#/Vol] 0.0 10*3/uL Normal 0.0-0.2 [facility] Comment on above: Result Comment: PERF ORMED BY: [place] [address] PATHOLOGIST JUNIOR SOFTWARE DEVELOPER CLAIRE ANTHONY M.D. Performed By: #### C BC, BMP #### [address] Basophils/100 WBC (Bld) 0.7 % Normal . [facility] Comment on above: Performed By: #### C BC, BMP #### [address] Eosinophils (Bld) [#/Vol] 0.1 10*3/uL Normal 0.0-0.45 [facility] Comment on above: Performed By: #### C BC, BMP #### [address] Eosinophils/100 WBC (Bld) 2.8 % Normal . [facility] Comment on above: Performed By: #### C BC, BMP #### [address] Erythrocyte distribution width (RBC) [Ratio] 13.2 % Normal 11.9-15.3 [facility] Comment on above: Performed By: #### C BC, BMP #### [address] Hematocrit (Bld) [Volume fraction] 35.7 % Normal 34.0-46.4 [facility] Comment on above: Performed By: #### C BC, BMP #### [address] Hemoglobin (Bld) [Mass/Vol] 11.9 g/dL Normal 11.8-15.4 [facility] Comment on above: Performed By: #### C BC, BMP #### [facility] [address] Lymphocytes (Bld) [#/Vol] 0.8 10*3/uL Low 1.00-4.8 [facility] Comment on above: Performed By: #### C BC, BMP #### [address] Lymphocytes/100 WBC (Bld) 16.7 % Normal . [facility] Comment on above: Performed By: #### C BC, BMP #### [address] MCH (RBC) [Entitic mass] 30.2 pg Normal 24.7-34.3 [facility] Comment on above: Performed By: #### C BC, BMP #### [address] MCV (RBC) [Entitic vol] 90.6 fL Normal 80-100 [facility] Comment on above: Performed By: #### C BC, BMP #### [address] Mean Corpuscular HGB Conc 33.3 g/dL Normal 32.0-35.0 [facility] Comment on above: Performed By: #### C BC, BMP #### [place] [address] [place] Monocytes (Bld) [#/Vol] 0.4 10*3/uL Normal 0.0-0.8 [facility] Comment on above: Performed By: #### C BC, BMP #### [place] [address] [place] Monocytes/100 WBC (Bld) 9.1 % Normal . [facility] Comment on above: Performed By: #### C BC, BMP #### [address] Neutrophils (Bld) [#/Vol] 3.4 10*3/uL Normal 1.8-7.7 [facility] Comment on above: Performed By: #### C BC, BMP #### [facility] [address] Neutrophils/100 WBC (Bld) 70.7 % Normal . [facility] Comment on above: Performed By: #### C BC, BMP #### [facility] [address] [place] [address] [place] Nucleated RBC/100 WBC (Bld) [Ratio] 0.0 % Normal 0-0.5 [facility] Comment on above: Performed By: #### C BC, BMP #### [facility] [address] Platelet mean volume (Bld) [Entitic vol] 6.9 fL Normal 6.3-10.7 [facility] Comment on above: Performed By: #### C BC, BMP #### [facility] [address] [place] [address] [place] Platelets (Bld) [#/Vol] 423 10*3/uL Normal 150-450 [facility] Comment on above: Performed By: #### C BC, BMP #### [facility] [address] [place] [address] [place] RBC (Bld) [#/Vol] 3.94 10*6/uL Normal 3.60-5.00 [facility] Comment on above: Performed By: #### C BC, BMP #### [facility] [address] [place] [address] [place] WBC (Bld) [#/Vol] 4.8 10*3/uL Normal 4.5-11.[address] [facility] Comment on above: Performed By: #### C BC, BMP #### [facility] [address] [place] [address] [place] Dipstick and Microscopicon 0 11-21-2021 Appearance (U) Clear Normal Clear [facility] Comment on above: Order Comment: Name Collection Type:: Clean-Voided Midstream Performed By: #### C BC, BMP #### [facility] [address] [place] [address] [place] Bacteria,Urine None Seen Normal None Seen [facility] Comment on above: Order Comment: Name Collection Type:: Clean-Voided Midstream Performed By: #### C BC, BMP #### [place] [address] [place] Bilirubin,Urine Negative Normal Negative [facility] Comment on above: Order Comment: Name Collection Type:: Clean-Voided Midstream Performed By: #### C BC, BMP #### [address] Color (U) Yellow Normal Yellow [facility] Comment on above: Order Comment: Name Collection Type:: Clean-Voided Midstream Performed By: #### C BC, BMP #### [address] Glucose Ql (U) Normal Normal Normal [facility] Comment on above: Order Comment: Name Collection Type:: Clean-Voided Midstream Performed By: #### C BC, BMP #### [address] Hyaline Casts,Urine 0-8 Normal 0-8 [facility] Comment on above: Order Comment: Name Collection Type:: Clean-Voided Midstream Result Comment: PERF ORMED BY: [place] [address] PATHOLOGIST JUNIOR SOFTWARE DEVELOPER CLAIRE ANTHONY M.D. Performed By: #### C BC, BMP #### [place] [address] [place] Ketones Ql (U) Negative Normal Negative [facility] Comment on above: Order Comment: Name Collection Type:: Clean-Voided Midstream Performed By: #### C BC, BMP #### [facility] [address] [place] [address] [place] Leukocyte esterase Test strip Ql (U) 1+ High Negative [facility] Comment on above: Order Comment: Name Collection Type:: Clean-Voided Midstream Performed By: #### C BC, BMP #### [place] [address] [place] Nitrite,Urine Negative Normal Negative [facility] Comment on above: Order Comment: Name Collection Type:: Clean-Voided Midstream Performed By: #### C BC, BMP #### [address] Occult Blood,Urine Negative Normal Negative [facility] Comment on above: Order Comment: Name Collection Type:: Clean-Voided Midstream Result Comment: PERF ORMED BY: [place] [address] PATHOLOGIST JUNIOR SOFTWARE DEVELOPER CLAIRE ANTHONY M.D. Performed By: #### C BC, BMP #### [address] pH (U) 6.5 [pH] Normal 5.0-9.0 [facility] Comment on above: Order Comment: Name Collection Type:: Clean-Voided Midstream Performed By: #### C BC, BMP #### [address] Protein,Urine Negative Normal Negative [facility] Comment on above: Order Comment: Name Collection Type:: Clean-Voided Midstream Performed By: #### C BC, BMP #### [address] RBC,Urine 1-2 Normal 0-4 [facility] Comment on above: Order Comment: Name Collection Type:: Clean-Voided Midstream Performed By: #### C BC, BMP #### [facility] [address] [place] [address] [place] Specificy [place],Urine 1.014 Normal 1.001-1.030 [facility] Comment on above: Order Comment: Name Collection Type:: Clean-Voided Midstream Performed By: #### C BC, BMP #### [place] [address] [place] Squamous Epithelial Cell,Urine None Seen Normal 0-2 [facility] Comment on above: Order Comment: Name Collection Type:: Clean-Voided Midstream Performed By: #### C BC, BMP #### [address] Urobilinogen,Urine Normal Normal Normal [facility] Comment on above: Order Comment: Name Collection Type:: Clean-Voided Midstream Performed By: #### C BC, BMP #### [address] WBC,Urine 1-2 Normal 0-4 [facility] Comment on above: Order Comment: Name Collection Type:: Clean-Voided Midstream Performed By: #### C BC, BMP #### [address] Complete Blood Count Auto Di ffon 11-04-2021 Basophils (Bld) [#/Vol] 0.0 10*3/uL Normal 0.0-0.2 [facility] Comment on above: Result Comment: PERF ORMED BY: [place] [address] PATHOLOGIST JUNIOR SOFTWARE DEVELOPER CLAIRE ANTHONY M.D. Performed By: #### C BC, BMP #### [address] Basophils/100 WBC (Bld) 0.1 % Normal . [facility] Comment on above: Performed By: #### C BC, BMP #### [address] Eosinophils (Bld) [#/Vol] 0.1 10*3/uL Normal 0.0-0.45 [facility] Comment on above: Performed By: #### C BC, BMP #### [address] Eosinophils/100 WBC (Bld) 1.3 % Normal . [facility] Comment on above: Performed By: #### C BC, BMP #### [address] Erythrocyte distribution width (RBC) [Ratio] 13.0 % Normal 11.9-15.3 [facility] Comment on above: Performed By: #### C BC, BMP #### [address] Hematocrit (Bld) [Volume fraction] 27.5 % Low 34.0-46.4 [facility] Comment on above: Performed By: #### C BC, BMP #### [address] Hemoglobin (Bld) [Mass/Vol] 9.3 g/dL Low 11.8-15.4 [facility] Comment on above: Performed By: #### C BC, BMP #### [address] Lymphocytes (Bld) [#/Vol] 0.5 10*3/uL Low 1.00-4.8 [facility] Comment on above: Performed By: #### C BC, BMP #### [address] Lymphocytes/100 WBC (Bld) 6.3 % Normal . [facility] Comment on above: Performed By: #### C BC, BMP #### [address] MCH (RBC) [Entitic mass] 31.1 pg Normal 24.7-34.3 [facility] Comment on above: Performed By: #### C BC, BMP #### [address] MCV (RBC) [Entitic vol] 92.0 fL Normal 80-100 [facility] Comment on above: Performed By: #### C BC, BMP #### [address] Mean Corpuscular HGB Conc 33.8 g/dL Normal 32.0-35.0 [facility] Comment on above: Performed By: #### C BC, BMP #### [address] Monocytes (Bld) [#/Vol] 0.8 10*3/uL Normal 0.0-0.8 [facility] Comment on above: Performed By: #### C BC, BMP #### [address] Monocytes/100 WBC (Bld) 10.8 % Normal . [facility] Comment on above: Performed By: #### C BC, BMP #### [facility] [address] [place] [address] [place] Neutrophils (Bld) [#/Vol] 5.9 10*3/uL Normal 1.8-7.7 [facility] Comment on above: Performed By: #### C BC, BMP #### [facility] [address] [place] [address] [place] Neutrophils/100 WBC (Bld) 81.5 % Normal . [facility] Comment on above: Performed By: #### C BC, BMP #### [facility] [address] Nucleated RBC/100 WBC (Bld) [Ratio] 0.0 % Normal 0-0.5 [facility] Comment on above: Performed By: #### C BC, BMP #### [facility] [address] [place] [address] [place] Platelet mean volume (Bld) [Entitic vol] 7.4 fL Normal 6.3-10.7 [facility] Comment on above: Performed By: #### C BC, BMP #### [facility] [address] [place] [address] [place] Platelets (Bld) [#/Vol] 135 10*3/uL Low 150-450 [facility] Comment on above: Performed By: #### C BC, BMP #### [facility] [address] [place] [address] [place] RBC (Bld) [#/Vol] 2.99 10*6/uL Low 3.60-5.00 [facility] Comment on above: Performed By: #### C BC, BMP #### [facility] [address] [place] [address] [place] WBC (Bld) [#/Vol] 7.3 10*3/uL Normal 4.5-11.[address] [facility] Comment on above: Performed By: #### C BC, BMP #### [facility] [address] [place] [address] [place] Electrolyteson 11-04-2021 Chloride [Moles/Vol] 106 mmol/L Normal 95-114 [facility] Comment on above: Performed By: #### C BC, BMP #### [address] CO2 [Moles/Vol] 25.2 mmol/L Normal 22.0-30.0 [facility] Comment on above: Result Comment: PERF ORMED BY: [place] [address] PATHOLOGIST JUNIOR SOFTWARE DEVELOPER CLAIRE ANTHONY M.D. Performed By: #### C BC, BMP #### [address] Potassium [Moles/Vol] 3.7 mmol/L Normal 3.5-5.1 [facility] Comment on above: Performed By: #### C BC, BMP #### [address] Sodium [Moles/Vol] 137 mmol/L Normal 136-[address] [facility] Comment on above: Performed By: #### C BC, BMP #### [address] Complete Blood Count Auto Di ffon 11-03-2021 Basophils (Bld) [#/Vol] 0.0 10*3/uL Normal 0.0-0.2 [facility] Comment on above: Result Comment: PERF ORMED BY: [place] [address] PATHOLOGIST JUNIOR SOFTWARE DEVELOPER CLAIRE ANTHONY M.D. Performed By: #### C BC, BMP #### [place] [address] [place] Basophils/100 WBC (Bld) 0.1 % Normal . [facility] Comment on above: Performed By: #### C BC, BMP #### [address] Eosinophils (Bld) [#/Vol] 0.0 10*3/uL Normal 0.0-0.45 [facility] Comment on above: Performed By: #### C BC, BMP #### [facility] [address] [place] [address] [place] Eosinophils/100 WBC (Bld) 0.3 % Normal . [facility] Comment on above: Performed By: #### C BC, BMP #### [facility] [address] Erythrocyte distribution width (RBC) [Ratio] 12.8 % Normal 11.9-15.3 [facility] Comment on above: Performed By: #### C BC, BMP #### [facility] [address] Hematocrit (Bld) [Volume fraction] 29.5 % Low 34.0-46.4 [facility] Comment on above: Performed By: #### C BC, BMP #### [address] Hemoglobin (Bld) [Mass/Vol] 9.9 g/dL Low 11.8-15.4 [facility] Comment on above: Performed By: #### C BC, BMP #### [facility] [address] Lymphocytes (Bld) [#/Vol] 0.5 10*3/uL Low 1.00-4.8 [facility] Comment on above: Performed By: #### C BC, BMP #### [place] [address] [place] Lymphocytes/100 WBC (Bld) 7.4 % Normal . [facility] Comment on above: Performed By: #### C BC, BMP #### [facility] [address] [place] [address] [place] MCH (RBC) [Entitic mass] 30.9 pg Normal 24.7-34.3 [facility] Comment on above: Performed By: #### C BC, BMP #### [address] MCV (RBC) [Entitic vol] 92.1 fL Normal 80-100 [facility] Comment on above: Performed By: #### C BC, BMP #### [facility] [address] [place] [id number] [place] Mean Corpuscular HGB Conc 33.6 g/dL Normal 32.0-35.0 [facility] Comment on above: Performed By: #### C BC, BMP #### [facility] [address] [place] [address] [place] Monocytes (Bld) [#/Vol] 0.7 10*3/uL Normal 0.0-0.8 [facility] Comment on above: Performed By: #### C BC, BMP #### [facility] [address] [place] [id number] [place] Monocytes/100 WBC (Bld) 10.0 % Normal . [facility] Comment on above: Performed By: #### C BC, BMP #### [facility] [address] [place] [address] [place] Neutrophils (Bld) [#/Vol] 5.8 10*3/uL Normal 1.8-7.7 [facility] Comment on above: Performed By: #### C BC, BMP #### [facility] [address] [place] [id number] [place] Neutrophils/100 WBC (Bld) 82.2 % Normal . [facility] Comment on above: Performed By: #### C BC, BMP #### [facility] [address] [place] [address] [place] Nucleated RBC/100 WBC (Bld) [Ratio] 0.0 % Normal 0-0.5 [facility] Comment on above: Performed By: #### C BC, BMP #### [facility] [address] [place] [id number] [place] Platelet mean volume (Bld) [Entitic vol] 8.1 fL Normal 6.3-10.7 [facility] Comment on above: Performed By: #### C BC, BMP #### [facility] [address] [place] [id number] [place] Platelets (Bld) [#/Vol] 153 10*3/uL Normal 150-450 [facility] Comment on above: Performed By: #### C BC, BMP #### [address] RBC (Bld) [#/Vol] 3.21 10*6/uL Low 3.60-5.00 [facility] Comment on above: Performed By: #### C SANTANA, BMP #### [address] WBC (Bld) [#/Vol] 7.0 10*3/uL Normal 4.5-11.[address] [facility] Comment on above: Performed By: #### C SANTANA, BMP #### [address] Electrolyteson 11-03-2021 Chloride [Moles/Vol] 104 mmol/L Normal 95-114 [facility] Comment on above: Performed By: #### C SANTANA, BMP #### [address] CO2 [Moles/Vol] 28.5 mmol/L Normal 22.0-30.0 [facility] Comment on above: Result Comment: PERF ORMED BY: [place] [address] PATHOLOGIST JUNIOR SOFTWARE DEVELOPER CLAIRE ANTHONY M.D. Performed By: #### C SANTANA, BMP #### [address] Potassium [Moles/Vol] 4.2 mmol/L Normal 3.5-5.1 [facility] Comment on above: Performed By: #### C SANTANA, BMP #### [address] Sodium [Moles/Vol] 139 mmol/L Normal 136-[address] [facility] Comment on above: Performed By: #### C SANTANA, BMP #### [address] Viet 11-02-2021 L -- ---- Specimen: [id number] Received: 11/02/21 Status: GARRETT Sapna Num: [id number] Spec Type: Surgical Subm Dr: Mary Gatica Jr, DO Tissues: A Gross Only (BONE/TISSUE RT HIP) Procedures: Level 1 Gross ---- Patient Age/Sex Location Account Attending Physician ---- Isabel Waddell 61/F 4N [id number] Mary Gatica Jr, DO ---- SPEC NUM: [id number] RECD: 11/02/21 STATUS: GARRETT SAPNA NUM: [id number] FRANCISCA: 11/02/[address]: Mary Gatica Jr, DO ENTERED: 11/02/[address]: SPEC TYPE: Surgical DEPT: S ORDERED: [...] only. (JUAN/DORA) Microscopic Description Gross examination only. [id number] ---- ---- Specimen: [id number] Received: 11/02/21 Status: GARRETT Campuzano Num: [id number] Spec Type: Surgical Subm Dr: Mary Gatica Jr, DO Tissues: A Gross Only (BONE/TISSUE RT HIP) Procedures: Level 1 Gross ---- Patient: Isabel Waddell [id number] (Continued) ---- Signed (signature on file) Claire Anthony MD 11/02/21 1559 [facility] LeukoReduced RBCon LeukoReduced RBC READY [facility] Type and Screenon 11-02-2021 ABO and Rh group Nom (Bld) Blood group O Rh(D) positive [facility] Comment on above: Order Comment: Trans fuse now? N XR low pelvis w/RT x-table h ipon 11-02-2021 XR low pelvis w/RT x-table hip [facility] [place] [address] XRay Report Signed Patient: Isabel Waddell MR#: [id number] : 1960 Acct:[id number] Age/Sex: 61 / F ADM Date: 11/02/21 Loc: N Room: [address] [place] [address] Type: REG [facility] Attending Dr: Mary Gatica Jr, DO Ordering [...] Shiva Stafford M.D.11/02/2021 2:41 PM Dictation Location: [place] [address] Transcribed By: [facility] 11/02/211440 Dictated By: Shiva Stafford II, MD 11/02/211439 Signed By: 11/02/211440 Normal [facility] COVID-19 FRon 10-31-2021 SARS-CoV-2 (COVID-19) RNA ANGELA+probe Ql (Unsp spec) Negative Normal Negative [facility] Comment on above: Order Comment: 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 This test has not been [...] is terminated or revoked sooner. PERFORMED BY: [address] [place] [address] PATHOLOGIST JUNIOR SOFTWARE DEVELOPER CLAIRE ANTHONY M.D. Performed By: #### C BC, BMP #### [facility] [address] [place] [id number] [facility] Basic Metabolic Panelon 11-2 Calcium [Mass/Vol] 9.3 mg/dL Normal 8.2-10.[address] [facility] Comment on above: Result Comment: PERF ORMED BY: [place] [address] PATHOLOGIST JUNIOR SOFTWARE DEVELOPER CLAIRE ANTHONY M.D. Performed By: #### C BC, BMP #### [facility] [address] Chloride [Moles/Vol] 104 mmol/L Normal 95-114 [facility] Comment on above: Performed By: #### C BC, BMP #### [facility] [address] CO2 [Moles/Vol] 28.3 mmol/L Normal 22.0-30.0 [facility] Comment on above: Performed By: #### C BC, BMP #### [address] Creatinine [Mass/Vol] 0.61 mg/dL Normal 0.44-1.03 [facility] Comment on above: Performed By: #### C BC, BMP #### [facility] [address] Estimated GFR ( Damon > 60 [facility] Comment on above: Result Comment: GFR estimated reference range: According to KDOQI guidelines, <60 ml/min/1.73m2 is sufficient to diagnose a patient with chronic kidney disease. Performed By: #### C BC, BMP #### [facility] [address] [place] [address] [place] Estimated GFR (Non- Am > 60 Normal [facility] Comment on above: Performed By: #### C BC, BMP #### [facility] [address] [place] [id number] [place] Glucose [Mass/Vol] 100 mg/dL Normal 70-[address] [facility] Comment on above: Result Comment: [place] Glucose Reference Range is dependent on time and content of last meal. Glucose of more than 200 mg/dL in a nonstressed, ambulatory subject supports the diagnosis of Diabetes Mellitus. ADA recommended reference range Performed By: #### C BC, BMP #### [address] Potassium [Moles/Vol] 4.7 mmol/L Normal 3.5-5.1 [facility] Comment on above: Performed By: #### C BC, BMP #### [address] Sodium [Moles/Vol] 140 mmol/L Normal 136-[address] [facility] Comment on above: Performed By: #### C BC, BMP #### [address] Urea nitrogen [Mass/Vol] 17 mg/dL Normal 9-23 [facility] Comment on above: Performed By: #### C BC, BMP #### [address] Complete Blood Count Auto Di ffon 10-15-2021 Basophils (Bld) [#/Vol] 0.0 10*3/uL Normal 0.0-0.2 [facility] Comment on above: Result Comment: PERF ORMED BY: [place] [address] PATHOLOGIST JUNIOR SOFTWARE DEVELOPER CLAIRE ANTHONY M.D. Performed By: #### C BC, BMP #### [place] [address] [place] Basophils/100 WBC (Bld) 0.4 % Normal . [facility] Comment on above: Performed By: #### C BC, BMP #### [place] [address] [place] Eosinophils (Bld) [#/Vol] 0.1 10*3/uL Normal 0.0-0.45 [facility] Comment on above: Performed By: #### C BC, BMP #### [address] Eosinophils/100 WBC (Bld) 2.1 % Normal . [facility] Comment on above: Performed By: #### C BC, BMP #### [facility] [address] Erythrocyte distribution width (RBC) [Ratio] 13.0 % Normal 11.9-15.3 [facility] Comment on above: Performed By: #### C BC, BMP #### [address] Hematocrit (Bld) [Volume fraction] 36.8 % Normal 34.0-46.4 [facility] Comment on above: Performed By: #### C BC, BMP #### [address] Hemoglobin (Bld) [Mass/Vol] 12.4 g/dL Normal 11.8-15.4 [facility] Comment on above: Performed By: #### C BC, BMP #### [address] Lymphocytes (Bld) [#/Vol] 0.5 10*3/uL Low 1.00-4.8 [facility] Comment on above: Performed By: #### C BC, BMP #### [address] Lymphocytes/100 WBC (Bld) 18.8 % Normal . [facility] Comment on above: Performed By: #### C BC, BMP #### [address] MCH (RBC) [Entitic mass] 31.3 pg Normal 24.7-34.3 [facility] Comment on above: Performed By: #### C BC, BMP #### [address] MCV (RBC) [Entitic vol] 92.8 fL Normal 80-100 [facility] Comment on above: Performed By: #### C BC, BMP #### [address] Mean Corpuscular HGB Conc 33.7 g/dL Normal 32.0-35.0 [facility] Comment on above: Performed By: #### C BC, BMP #### [facility] [address] [place] [address] [place] Monocytes (Bld) [#/Vol] 0.3 10*3/uL Normal 0.0-0.8 [facility] Comment on above: Performed By: #### C BC, BMP #### [facility] [address] [place] [id number] [place] Monocytes/100 WBC (Bld) 10.8 % Normal . [facility] Comment on above: Performed By: #### C BC, BMP #### [facility] [address] [place] [address] [place] Neutrophils (Bld) [#/Vol] 1.9 10*3/uL Normal 1.8-7.7 [facility] Comment on above: Performed By: #### C BC, BMP #### [facility] [address] [place] [id number] [place] Neutrophils/100 WBC (Bld) 67.9 % Normal . [facility] Comment on above: Performed By: #### C BC, BMP #### [facility] [address] [place] [id number] [place] Nucleated RBC/100 WBC (Bld) [Ratio] 0.1 % Normal 0-0.5 [facility] Comment on above: Performed By: #### C BC, BMP #### [facility] [address] [place] [address] [place] Platelet mean volume (Bld) [Entitic vol] 7.4 fL Normal 6.3-10.7 [facility] Comment on above: Performed By: #### C BC, BMP #### [facility] [address] [place] [id number] [place] Platelets (Bld) [#/Vol] 198 10*3/uL Normal 150-450 [facility] Comment on above: Performed By: #### C BC, BMP #### [facility] [address] [place] [id number] [place] RBC (Bld) [#/Vol] 3.97 10*6/uL Normal 3.60-5.00 [facility] Comment on above: Performed By: #### C BC, BMP #### [facility] [address] [place] [address] [place] WBC (Bld) [#/Vol] 2.8 10*3/uL Low 4.5-11.[address] [facility] Comment on above: Performed By: #### C BC, BMP #### [facility] [address] [place] [address] [place] Dipstick and Microscopicon 1 12-15-2020 Appearance (U) Turbid Critically abnormal Clear [facility] Comment on above: Order Comment: Name Collection Type:: Clean-Voided Midstream Performed By: #### A DDONUAPLUS #### [place] [address] [place] Bacteria,Urine None Seen Normal None Seen [facility] Comment on above: Order Comment: Name Collection Type:: Clean-Voided Midstream Performed By: #### A DDONUAPLUS #### [place] [address] [place] Bilirubin,Urine Negative Normal Negative [facility] Comment on above: Order Comment: Name Collection Type:: Clean-Voided Midstream Performed By: #### A DDONUAPLUS #### [address] Color (U) Yellow Normal Yellow [facility] Comment on above: Order Comment: Name Collection Type:: Clean-Voided Midstream Performed By: #### A DDONUAPLUS #### [facility] [address] [place] [address] [place] Glucose Ql (U) Normal Normal Normal [facility] Comment on above: Order Comment: Name Collection Type:: Clean-Voided Midstream Performed By: #### A DDONUAPLUS #### [place] [address] [place] Hyaline Casts,Urine None Seen Normal 0-8 [facility] Comment on above: Order Comment: Name Collection Type:: Clean-Voided Midstream Result Comment: PERF ORMED BY: [place] [address] PATHOLOGIST JUNIOR SOFTWARE DEVELOPER CLAIRE ANTHONY M.D. Performed By: #### A DDONUAPLUS #### [address] Ketones Ql (U) Negative Normal Negative [facility] Comment on above: Order Comment: Name Collection Type:: Clean-Voided Midstream Performed By: #### A DDONUAPLUS #### [address] Leukocyte esterase Test strip Ql (U) 1+ High Negative [facility] Comment on above: Order Comment: Name Collection Type:: Clean-Voided Midstream Performed By: #### A DDONUAPLUS #### [address] Nitrite,Urine Negative Normal Negative [facility] Comment on above: Order Comment: Name Collection Type:: Clean-Voided Midstream Performed By: #### A DDONUAPLUS #### [address] Occult Blood,Urine Negative Normal Negative [facility] Comment on above: Order Comment: Name Collection Type:: Clean-Voided Midstream Result Comment: PERF ORMED BY: [place] [address] PATHOLOGIST JUNIOR SOFTWARE DEVELOPER CLAIRE ANTHONY M.D. Performed By: #### A DDONUAPLUS #### [place] [address] [place] pH (U) 7.5 [pH] Normal 5.0-9.0 [facility] Comment on above: Order Comment: Name Collection Type:: Clean-Voided Midstream Performed By: #### A DDONUAPLUS #### [place] [address] [place] Protein,Urine Negative Normal Negative [facility] Comment on above: Order Comment: Name Collection Type:: Clean-Voided Midstream Performed By: #### A DDONUAPLUS #### [address] RBC,Urine 1-2 Normal 0-4 [facility] Comment on above: Order Comment: Name Collection Type:: Clean-Voided Midstream Performed By: #### A DDONUAPLUS #### [facility] [address] [place] [address] Specificy [place],Urine 1.017 Normal 1.001-1.030 [facility] Comment on above: Order Comment: Name Collection Type:: Clean-Voided Midstream Performed By: #### A DDONUAPLUS #### [facility] [address] [place] [address] Squamous Epithelial Cell,Urine None Seen Normal 0-2 [facility] Comment on above: Order Comment: Name Collection Type:: Clean-Voided Midstream Performed By: #### A DDONUAPLUS #### [address] Urobilinogen,Urine Normal Normal Normal [facility] Comment on above: Order Comment: Name Collection Type:: Clean-Voided Midstream Performed By: #### A DDONUAPLUS #### [facility] [address] [place] [address] WBC,Urine 3-4 Normal 0-4 [facility] Comment on above: Order Comment: Name Collection Type:: Clean-Voided Midstream Performed By: #### A DDONUAPLUS #### [facility] [address] [place] [address] PST Type and Screenon 2020 ABO and Rh group Nom (Bld) Blood group O Rh(D) positive Normal [facility] Comment on above: Order Comment: Date of Surgery: 20211102 # of PRBC units on hold?: 2 Result Comment: PERF ORMED BY: [place] [address] PATHOLOGIST JUNIOR SOFTWARE DEVELOPER CLAIRE ANTHONY M.D. XR hip RT min 2V(w/wo pelvis )*on 10-15-2021 XR hip RT min 2V(w/wo pelvis)* [facility] [place] [address] [place] [address] XRay Report Signed Patient: Isabel Waddell MR#: [id number] : 1960 Acct:[id number] Age/Sex: 61 / F ADM Date: 10/15/21 [...] Yusef Fernandez M.D.10/15/2021 2:21 PM Dictation Location: [place] [address] Transcribed By: [facility] 10/15/21 1421 Dictated By: Yusef Fernandez DO 10/15/21 1420 Signed By: 10/15/21 1421 Normal [facility] XR tibia/fibula BIon -06- 021 XR tibia/fibula BI [facility] [place] [address] XRay Report Signed Patient: Isabel Waddell MR#: [id number] : 1960 Acct:[id number] Age/Sex: 61 / F ADM Date: 08/22/21 Loc: ICXD Room: Type: REG CLI Attending Dr: Mary Gatica Jr, DO Ordering Provider: Mary Gatica Jr, DO Date of Service: 08/22/21 XR/XR femur BI: PST ([id number]) XR/XR tibia/fibula BI: PST Copies to: Mary [...] Mckayla Rai M.D.08/22/2021 3:17 PM Dictation Location: [place] [address] Transcribed By: [facility] 08/22/211516 Dictated By: Mckayla Rai MD 08/22/211512 Signed By: 08/22/211516 Normal [facility] Basic Metabolic Panelon 10-0 Calcium [Mass/Vol] 9.1 mg/dL Normal 8.2-10.[address] [facility] Comment on above: Result Comment: PERF ORMED BY: [place] [address] PATHOLOGIST JUNIOR SOFTWARE DEVELOPER CLAIRE ANTHONY M.D. Performed By: #### C SANTANA BMP #### [address] Chloride [Moles/Vol] 102 mmol/L Normal 95-114 [facility] Comment on above: Performed By: #### C SANTANA, BMP #### [place] [address] [place] CO2 [Moles/Vol] 27.8 mmol/L Normal 22.0-30.0 [facility] Comment on above: Performed By: #### C SANTANA, BMP #### [address] Creatinine [Mass/Vol] 0.63 mg/dL Normal 0.44-1.03 [facility] Comment on above: Performed By: #### C SANTANA, BMP #### [place] [address] [place] Estimated GFR ( Damon > 60 Normal [facility] Comment on above: Result Comment: GFR estimated reference range: According to KDOQI guidelines, <60 ml/min/1.73m2 is sufficient to diagnose a patient with chronic kidney disease. Performed By: #### C BC, BMP #### [facility] [address] Estimated GFR (Non- Am > 60 Normal [facility] Comment on above: Performed By: #### C BC, BMP #### [address] Glucose [Mass/Vol] 101 mg/dL High 70-[address] [facility] Comment on above: Result Comment: [place] Glucose Reference Range is dependent on time and content of last meal. Glucose of more than 200 mg/dL in a nonstressed, ambulatory subject supports the diagnosis of Diabetes Mellitus. ADA recommended reference range Performed By: #### C BC, BMP #### [address] Potassium [Moles/Vol] 4.2 mmol/L Normal 3.5-5.1 [facility] Comment on above: Performed By: #### C BC, BMP #### [address] Sodium [Moles/Vol] 138 mmol/L Normal 136-[address] [facility] Comment on above: Performed By: #### C BC, BMP #### [address] Urea nitrogen [Mass/Vol] 18 mg/dL Normal 9-23 [facility] Comment on above: Performed By: #### C BC, BMP #### [address] Complete Blood Count Auto Di ffon 08-20-2021 Basophils (Bld) [#/Vol] 0.0 10*3/uL Normal 0.0-0.2 [facility] Comment on above: Result Comment: PERF ORMED BY: [place] [address] PATHOLOGIST JUNIOR SOFTWARE DEVELOPER CLAIRE ANTHONY M.D. Performed By: #### C BC, BMP #### [facility] [address] [place] [address] [place] Basophils/100 WBC (Bld) 0.1 % Normal . [facility] Comment on above: Performed By: #### C BC, BMP #### [facility] [address] [place] [address] [place] Eosinophils (Bld) [#/Vol] 0.1 10*3/uL Normal 0.0-0.45 [facility] Comment on above: Performed By: #### C BC, BMP #### [facility] [address] [place] [address] [place] Eosinophils/100 WBC (Bld) 2.5 % Normal . [facility] Comment on above: Performed By: #### C BC, BMP #### [facility] [address] Erythrocyte distribution width (RBC) [Ratio] 13.6 % Normal 11.9-15.3 [facility] Comment on above: Performed By: #### C BC, BMP #### [facility] [address] [place] [address] [place] Hematocrit (Bld) [Volume fraction] 34.5 % Normal 34.0-46.4 [facility] Comment on above: Performed By: #### C BC, BMP #### [facility] [address] [place] [address] [place] Hemoglobin (Bld) [Mass/Vol] 11.9 g/dL Normal 11.8-15.4 [facility] Comment on above: Performed By: #### C BC, BMP #### [facility] [address] [place] [id number] [place] Lymphocytes (Bld) [#/Vol] 0.6 10*3/uL Low 1.00-4.8 [facility] Comment on above: Performed By: #### C BC, BMP #### [facility] [address] [place] [id number] [place] Lymphocytes/100 WBC (Bld) 15.9 % Normal . [facility] Comment on above: Performed By: #### C BC, BMP #### [facility] [address] MCH (RBC) [Entitic mass] 31.3 pg Normal 24.7-34.3 [facility] Comment on above: Performed By: #### C BC, BMP #### [facility] [address] MCV (RBC) [Entitic vol] 90.5 fL Normal 80-100 [facility] Comment on above: Performed By: #### C BC, BMP #### [facility] [address] Mean Corpuscular HGB Conc 34.6 g/dL Normal 32.0-35.0 [facility] Comment on above: Performed By: #### C BC, BMP #### [facility] [address] [place] [address] [place] Monocytes (Bld) [#/Vol] 0.5 10*3/uL Normal 0.0-0.8 [facility] Comment on above: Performed By: #### C BC, BMP #### [facility] [address] [place] [address] [place] Monocytes/100 WBC (Bld) 13.2 % Normal . [facility] Comment on above: Performed By: #### C BC, BMP #### [facility] [address] [place] [address] [place] Neutrophils (Bld) [#/Vol] 2.7 10*3/uL Normal 1.8-7.7 [facility] Comment on above: Performed By: #### C BC, BMP #### [facility] [address] [place] [address] [place] Neutrophils/100 WBC (Bld) 68.3 % Normal . [facility] Comment on above: Performed By: #### C BC, BMP #### [facility] [address] [place] [address] [place] Nucleated RBC/100 WBC (Bld) [Ratio] 0.1 % Normal 0-0.5 [facility] Comment on above: Performed By: #### C BC, BMP #### [facility] [address] Platelet mean volume (Bld) [Entitic vol] 7.8 fL Normal 6.3-10.7 [facility] Comment on above: Performed By: #### C BC, BMP #### [facility] [address] Platelets (Bld) [#/Vol] 182 10*3/uL Normal 150-450 [facility] Comment on above: Performed By: #### C BC, BMP #### [address] RBC (Bld) [#/Vol] 3.81 10*6/uL Normal 3.60-5.00 [facility] Comment on above: Performed By: #### C BC, BMP #### [address] WBC (Bld) [#/Vol] 4.0 10*3/uL Low 4.5-11.[address] [facility] Comment on above: Performed By: #### C BC, BMP #### [address] Dipstick and Microscopicon 1 Appearance (U) Turbid Critically abnormal Clear [facility] Comment on above: Order Comment: Comme nt urine C S if indicated by UA Name Collection Type:: Clean-Voided Midstream Performed By: #### A DDONUAPLUS #### [facility] [address] [place] [address] Bacteria,Urine None Seen Normal None Seen [facility] Comment on above: Order Comment: Comme nt urine C S if indicated by UA Name Collection Type:: Clean-Voided Midstream Performed By: #### A DDONUAPLUS #### [address] Bilirubin,Urine Negative Normal Negative [facility] Comment on above: Order Comment: Comme nt urine C S if indicated by UA Name Collection Type:: Clean-Voided Midstream Performed By: #### A DDONUAPLUS #### [facility] [address] [place] [address] Color (U) Yellow Normal Yellow [facility] Comment on above: Order Comment: Comme nt urine C S if indicated by UA Name Collection Type:: Clean-Voided Midstream Performed By: #### A DDONUAPLUS #### [address] Glucose Ql (U) Normal Normal Normal [facility] Comment on above: Order Comment: Comme nt urine C S if indicated by UA Name Collection Type:: Clean-Voided Midstream Performed By: #### A DDONUAPLUS #### [address] Hyaline Casts,Urine 0-8 Normal 0-8 [facility] Comment on above: Order Comment: Comme nt urine C S if indicated by UA Name Collection Type:: Clean-Voided Midstream Result Comment: PERF ORMED BY: [place] [address] PATHOLOGIST JUNIOR SOFTWARE DEVELOPER CLAIRE ANTHONY M.D. Performed By: #### A DDONUAPLUS #### [address] Ketones Ql (U) Negative Normal Negative [facility] Comment on above: Order Comment: Comme nt urine C S if indicated by UA Name Collection Type:: Clean-Voided Midstream Performed By: #### A DDONUAPLUS #### [address] Leukocyte esterase Test strip Ql (U) 3+ High Negative [facility] Comment on above: Order Comment: Comme nt urine C S if indicated by UA Name Collection Type:: Clean-Voided Midstream Performed By: #### A DDONUAPLUS #### [address] Nitrite,Urine Negative Normal Negative [facility] Comment on above: Order Comment: Comme nt urine C S if indicated by UA Name Collection Type:: Clean-Voided Midstream Performed By: #### A DDONUAPLUS #### [address] Occult Blood,Urine Negative Normal Negative [facility] Comment on above: Order Comment: Comme nt urine C S if indicated by UA Name Collection Type:: Clean-Voided Midstream Result Comment: PERF ORMED BY: [place] [address] PATHOLOGIST JUNIOR SOFTWARE DEVELOPER CLAIRE ANTHONY M.D. Performed By: #### A DDONUAPLUS #### [address] pH (U) 8.5 [pH] Normal 5.0-9.0 [facility] Comment on above: Order Comment: Comme nt urine C S if indicated by UA Name Collection Type:: Clean-Voided Midstream Performed By: #### A DDONUAPLUS #### [address] Protein,Urine Negative Normal Negative [facility] Comment on above: Order Comment: Comme nt urine C S if indicated by UA Name Collection Type:: Clean-Voided Midstream Performed By: #### A DDONUAPLUS #### [facility] [address] [place] [address] RBC,Urine 3-4 Normal 0-4 [facility] Comment on above: Order Comment: Comme nt urine C S if indicated by UA Name Collection Type:: Clean-Voided Midstream Performed By: #### A DDONUAPLUS #### [address] Specificy [place],Urine 1.016 Normal 1.001-1.030 [facility] Comment on above: Order Comment: Comme nt urine C S if indicated by UA Name Collection Type:: Clean-Voided Midstream Performed By: #### A DDONUAPLUS #### [address] Squamous Epithelial Cell,Urine 0-1 Normal 0-2 [facility] Comment on above: Order Comment: Comme nt urine C S if indicated by UA Name Collection Type:: Clean-Voided Midstream Performed By: #### A DDONUAPLUS #### [facility] [address] [place] [address] Urobilinogen,Urine Normal Normal Normal [facility] Comment on above: Order Comment: Comme nt urine C S if indicated by UA Name Collection Type:: Clean-Voided Midstream Performed By: #### A DDONUAPLUS #### [facility] [address] [place] [address] WBC,Urine 20-49 High 0-4 [facility] Comment on above: Order Comment: Comme nt urine C S if indicated by UA Name Collection Type:: Clean-Voided Midstream Performed By: #### A DDONUAPLUS #### [facility] [address] [place] [address] ECG 12 lead ECGon 08-20-2021 ECG 12 lead ECG [facility] [place] [address] [place] [address] Electrocardiograph Report Signed Patient: Isabel Waddell MR#: [id number] : 1960 Acct:[id number] Age/Sex: 61 / F ADM Date: 08/20/21 Loc: Room: Type: [facility] Attending Dr: Mary Gatica Jr, DO [...] When compared with ECG of 06-SEP-2020 08:27, ID interval has decreased T wave amplitude has increased in Inferior leads Confirmed by YUSEF GIRALDO DO ([id number]) on 08/20/2021 4:50:03 PM Referred By: LAURA Electronically Signed By:YUSEF GIRALDO DO Transcribed By: MUS Signed By Yusef Giraldo DO 08/20 1650 [facility] PST Type and Screenon 2020 ABO and Rh group Nom (Bld) Blood group O Rh(D) positive [facility] Comment on above: Order Comment: Date of Surgery: 20210906 # of PRBC units on hold?: 2 Result Comment: PERF ORMED BY: [place] [address] PATHOLOGIST JUNIOR SOFTWARE DEVELOPER CLAIRE ANTHONY M.D. Urine Cultureon 08-20-2021 Bacteria identified Cx Nom (U) Comment do C S if indicated by UA ORGANISM: Staphylococcus aureus (O:STAAUR) [place] Count 30,000 Aerobic MARELY Charge (PC45) --- [...] RESISTANT TO ALL B-LACTAM DRUGS. [place]: [place] [address] PATHOLOGIST JUNIOR SOFTWARE DEVELOPER CLAIRE ANTHONY M.D. [facility] Comment on above: Performed By: #### C UU #### [address] [address] Cult,Urineon 07-08-2021 Cult,Urine Specimen Description .URINE Special Requests NOT REPORTED Culture NO SIGNIFICANT GROWTH Report Status FINAL 07/08/2021 Normal [facility] Comment on above: Performed By: #### U #### [facility] [address], [place] [id number] Cattle Tester: Rei Jules MD [facility] [address] [place] [address] Cattle Tester: Jacob Campos MD CBC Auto DifferentialOrdered By: Mayra Michel on 07-07-2021 Absolute Eos # 0.70 High [employer] [facility] Work Phone: Absolute Immature Granulocyte NOT REPORTED [facility] [employer] Work Phone: Absolute Lymph # 0.40 Low [facility] Work Phone: Absolute [facility]hing # 0.50 [facility] Work Phone: Basophils (Bld) [#/Vol] 0.00 10*3/uL [facility] Work Phone: Basophils/100 WBC (Bld) 1 % 0 - 2 % [facility] Work Phone: Differential Type YES [facility] [employer] Work Phone: Eosinophils/100 WBC (Bld) 14 % High 0 - 5 % [facility] Work Phone: Hematocrit (Bld) [Volume fraction] 40.1 % 36 - 46 % [facility] [employer] Work Phone: Hemoglobin.gastrointes tinal spec 1 Ql (Stl) 13.8 g/dL 12.0 - 16.0 g/dL [facility] Work Phone: Immature Granulocytes NOT REPORTED 0 % [facility] Work Phone: Interpretation and review of laboratory results Abnormal [facility] Work Phone: Lymphocytes/100 WBC (Bld) 8 % Low 15 - 40 % [employer] Work Phone: MCH (RBC) [Entitic mass] 30.7 pg 26 - 34 pg [facility] Work Phone: MCHC (RBC) [Mass/Vol] 34.5 g/dL 31 - 37 g/dL [facility] [employer] Work Phone: MCV (RBC) [Entitic vol] 89.1 fL 80 - 100 fL [facility] Work Phone: Monocytes/100 WBC (Bld) 10 % High 4 - 8 % [facility] Work Phone: NRBC Automated NOT REPORTED per 100 WBC [employer] [facility] Work Phone: Platelet distribution width (Bld) [Ratio] 13.0 % 12.1 - 15.2 % [employer] Phone: Platelet Estimate NOT REPORTED [facility] Phone: Platelet mean volume (Bld) [Entitic vol] NOT REPORTED 6.0 - 12.0 fL [employer] Work Phone: Platelets (Bld) [#/Vol] 157 10*3/uL [employer] Phone: RBC (Bld) [#/Vol] 4.50 10*6/uL 4.0 - 5.2 m/uL [employer] Phone: RBC (Bld) [#/Vol] NOT REPORTED [facility] Phone: Segmented neutrophils/100 WBC (Bld) 67 % 47 - 75 % [facility] Work Phone: Segs Absolute 3.40 [employer] Work Phone: WBC (Bld) [#/Vol] 5.1 10*3/uL [employer] Phone: WBC (Bld) [#/Vol] NOT REPORTED [facility] Phone: [employer] Work Phone: CBC with Diffon 07-07-2021 Abs. Basophil 0.00 k/uL Normal 0.0-0.2 [facility] Comment on above: Performed By: #### C DP, CP #### [facility] [address] [place] [address] Cattle Tester: Jacob Campos MD Abs.Neutrophil (Seg) 3.40 k/uL Normal 2.5-7.0 [facility] Comment on above: Performed By: #### C DP, CP #### [facility] [address] [place] [address] Cattle Tester: Jacob Campos MD Auto Diff Performed YES Normal [facility] Comment on above: Performed By: #### C DP, CP #### [facility] [address] [place] [address] Cattle Tester: Jacob Campos MD Basophils/100 WBC (Bld) 1 % Normal 0-2 [facility] Comment on above: Performed By: #### C DP, CP #### [facility] [address] [place] [address] Cattle Tester: Jacob Campos MD Eosinophils (Bld) [#/Vol] 0.70 10*3/uL High 0.0-0.4 [facility] Comment on above: Performed By: #### C DP, CP #### [facility] [address] [place] [phone] Cattle Tester: Jacob Campos MD Eosinophils/100 WBC (Bld) 14 % High 0-5 [facility] Comment on above: Performed By: #### C DP, CP #### [facility] [address] [place] [address] Cattle Tester: Jacob Campos MD Erythrocyte distribution width (RBC) [Ratio] 13.0 % Normal 12.1-15.2 [facility] Comment on above: Performed By: #### C DP, CP #### [facility] [address] [place], [place] [phone] Cattle Tester: Jacob Campos MD Hematocrit (Bld) [Volume fraction] 40.1 % Normal 36-46 [facility] Comment on above: Performed By: #### C DP, CP #### [facility] [address] [phone] Cattle Tester: Jacob Campos MD Hemoglobin (Bld) [Mass/Vol] 13.8 g/dL Normal 12.0-16.0 [facility] Comment on above: Performed By: #### C DP, CP #### [facility] [address] [place] [address] Cattle Tester: Jacob Campos MD Lymphocytes (Bld) [#/Vol] 0.40 10*3/uL Low 1.0-4.8 [facility] Comment on above: Performed By: #### C DP, CP #### [facility] [address] [phone] Cattle Tester: Jacob Campos MD Lymphocytes/100 WBC (Bld) 8 % Low 15-40 [facility] Comment on above: Performed By: #### C DP, CP #### [facility] [address] [place] [address] Cattle Tester: Jacob Campos MD MCH (RBC) [Entitic mass] 30.7 pg Normal 26-34 [facility] Comment on above: Performed By: #### C DP, CP #### [facility] [address] [place] [address] Cattle Tester: Jacob Campos MD MCHC (RBC) [Mass/Vol] 34.5 g/dL Normal 31-37 [facility] Comment on above: Performed By: #### C DP, CP #### [facility] [address] [place] [address] Cattle Tester: Jacob Campos MD MCV (RBC) [Entitic vol] 89.1 fL Normal 80-100 [facility] Comment on above: Performed By: #### C DP, CP #### [facility] [address] [place], [place] [phone] Cattle Tester: Jacob Campos MD Monocytes (Bld) [#/Vol] 0.50 10*3/uL Normal 0.0-1.0 [facility] Comment on above: Performed By: #### C DP, CP #### [facility] [address] [place] [address] Cattle Tester: Jacob Campos MD Monocytes/100 WBC (Bld) 10 % High 4-8 [facility] Comment on above: Performed By: #### C DP, CP #### [facility] [address] [place], [place] [phone] Cattle Tester: Jacob Campos MD Neutrophil (Seg) 67 % Normal 47-75 [facility] Comment on above: Performed By: #### C DP, CP #### [facility] [address] [place] [address] Cattle Tester: Jacob Campos MD Platelets (Bld) [#/Vol] 157 10*3/uL Normal 140-450 [facility] Comment on above: Performed By: #### C DP, CP #### [facility] [address] [place] [address] Cattle Tester: Jacob Campos MD RBC (Bld) [#/Vol] 4.50 10*6/uL Normal 4.0-5.2 [facility] Comment on above: Performed By: #### C DP, CP #### [facility] [address] [place], [place] [phone] Cattle Tester: Jacob Campos MD WBC (Bld) [#/Vol] 5.1 10*3/uL Normal 3.5-11.0 [facility] Comment on above: Performed By: #### C DP, CP #### [facility] [address] [place], [place] [phone] Cattle Tester: Jacob Campos MD Abs.Imm.Granulocyte NOT REPORTED Normal 0.00-0.30 [facility] Comment on above: Performed By: #### C DP, CP #### [facility] [address] [place], [place] [phone] Cattle Tester: Jacob Campos MD Immature Granulocyte NOT REPORTED Normal 0 [facility] Comment on above: Performed By: #### C DP, CP #### [facility] [address] [place] [phone] Cattle Tester: Jacob aCmpos MD MPV NOT REPORTED Normal 6.0-12.0 [facility] Comment on above: Performed By: #### C DP, CP #### [facility] [address] [place] [address] Cattle Tester: Jacob Campos MD NRBC Automated NOT REPORTED Normal [facility] Comment on above: Performed By: #### C DP, CP #### [facility] [address] [place], [place] [phone] Cattle Tester: Jacob Campos MD Platelet Estimate NOT REPORTED Normal [facility] Comment on above: Performed By: #### C DP, CP #### [facility] [address] [place] [phone] Cattle Tester: Jacob Campos MD RBC morphology finding Nom (Bld) NOT REPORTED Normal [facility] Comment on above: Performed By: #### C DP, CP #### [facility] [address] [place], [place] [phone] Cattle Tester: Jacob Campos MD WBC Morphology NOT REPORTED Normal [facility] Comment on above: Performed By: #### C DP, CP #### [facility] [address] [place], [place] [phone] Cattle Tester: Jacob Campos MD Comp Metabolic Profon 2020 (cont.) Normal [facility] Comment on above: Result Comment: Aver age GFR for 60-69 years old: 85 mL/min/1.73sq m Chronic Kidney Disease: <60 mL/min/1.73sq m Kidney failure: <15 mL/min/1.73sq m eGFR calculated using average adult body mass. Additional eGFR calculator available at: http://www.UPEK.Hyperink/multiple_crcl_2011.htm Performed By: #### C DP, CP #### [facility] [address] [place], [place] [phone] Cattle Tester: Jacob Campos MD Albumin [Mass/Vol] 3.9 g/dL Normal 3.5-5.2 [facility] Comment on above: Performed By: #### C DP, CP #### [facility] [address] [place], [place] [phone] Cattle Tester: Jacob Campos MD Alkaline Phos 94 U/L Normal 35-104 [facility] Comment on above: Performed By: #### C DP, CP #### [facility] [address] [place], [place] [phone] Cattle Tester: Jacob Campos MD ALT [Catalytic activity/Vol] 31 U/L Normal 5-33 [facility] Comment on above: Performed By: #### C DP, CP #### [facility] [address] [place], [place] [phone] Cattle Tester: Jacob Campos MD Anion gap [Moles/Vol] 10 mmol/L Normal 9-17 [facility] Comment on above: Performed By: #### C DP, CP #### [facility] [address] [place] [address] Cattle Tester: Jacob Campos MD AST [Catalytic activity/Vol] 28 U/L Normal <32 [facility] Comment on above: Performed By: #### C DP, CP #### [facility] [address] [place] [address] Cattle Tester: Jacob Campos MD Bilirubin [Mass/Vol] 0.46 mg/dL Normal 0.30-1.20 [facility] Comment on above: Performed By: #### C DP, CP #### [facility] [address] [place] [address] Cattle Tester: Jacob Campos MD BUN/CRE Ratio 27 High 9-20 [facility] Comment on above: Performed By: #### C DP, CP #### [facility] [address] [place] [address] Cattle Tester: Jacob Campos MD Calcium [Mass/Vol] 9.7 mg/dL Normal 8.6-10.4 [facility] Comment on above: Performed By: #### C DP, CP #### [facility] [address] [place] [address] Cattle Tester: Jacob Campos MD Chloride [Moles/Vol] 107 mmol/L Normal 98-107 [facility] Comment on above: Performed By: #### C DP, CP #### [facility] [address] [place] [address] Cattle Tester: Jacob Campos MD CO2 [Moles/Vol] 25 mmol/L Normal 20-31 [facility] Comment on above: Performed By: #### C DP, CP #### [facility] [address] [place] [address] Cattle Tester: Jacob Campos MD Creatinine [Mass/Vol] 0.60 mg/dL Normal 0.50-0.90 [facility] Comment on above: Performed By: #### C DP, CP #### [facility] [address] [place], [place] [phone] Cattle Tester: Jacob Campos MD GFR, Amer >60 Normal >60 [facility] Comment on above: Performed By: #### C DP, CP #### [facility] [address] [place], [place] [phone] Cattle Tester: Jacob Campos MD GFR,non Amer >60 Normal >60 [facility] Comment on above: Performed By: #### C DP, CP #### [facility] [address] [place], [place] [phone] Cattle Tester: Jacob Campos MD Glucose [Mass/Vol] 122 mg/dL High 70-99 [facility] Comment on above: Performed By: #### C DP, CP #### [facility] [address] [place] [address] Cattle Tester: Jacob Campos MD Potassium [Moles/Vol] 3.8 mmol/L Normal 3.7-5.3 [facility] Comment on above: Performed By: #### C DP, CP #### [facility] [address] [place] [address] Cattle Tester: Jacob Campos MD Protein [Mass/Vol] 6.9 g/dL Normal 6.4-8.3 [facility] Comment on above: Performed By: #### C DP, CP #### [facility] [address] [facility] [place] [phone] Cattle Tester: Jacob Campos MD Sodium [Moles/Vol] 142 mmol/L Normal 135-144 [facility] Comment on above: Performed By: #### C DP, CP #### [facility] [address] [place], [place] [phone] Cattle Tester: Jacob Campos MD Urea nitrogen [Mass/Vol] 16 mg/dL Normal 8-23 [facility] Comment on above: Performed By: #### C DP, CP #### [facility] [address] [place] [address] Cattle Tester: Jacob Campos MD Albumin/Glob Ratio NOT REPORTED Normal 1.0-2.5 [facility] Comment on above: Performed By: #### C DP, CP #### [facility] [address] [place] [address] Cattle Tester: Jacob Campos MD Staging: NOT REPORTED Normal [facility] Comment on above: Performed By: #### C DP, CP #### [facility] [address] [place] [address] Cattle Tester: Jacob Campos MD Comprehensive Metabolic Pane lOrdered By: Mayra Michel on 07-07-2021 Albumin [Mass/Vol] 3.9 g/dL 3.5 - 5.2 g/dL [employer] Phone: Albumin/Globulin Ratio NOT REPORTED [employer] Phone: ALP (Bld) [Catalytic activity/Vol] 94 U/L 35 - 104 U/L [employer] Phone: ALT [Catalytic activity/Vol] 31 U/L 5 - 33 U/L [employer] Phone: Anion gap [Moles/Vol] 10 mmol/L 9 - 17 mmol/L [employer] Phone: AST [Catalytic activity/Vol] 28 U/L <32 [employer] Phone: Bilirubin [Mass/Vol] 0.46 mg/dL 0.30 - 1.20 mg/dL [employer] Phone: Calcium [Mass/Vol] 9.7 mg/dL 8.6 - 10. 4 mg/dL [employer] Phone: Chloride [Moles/Vol] 107 mmol/L 98 - 10 7 mmol/L [employer] Phone: CO2 [Moles/Vol] 25 mmol/L 20 - 31 mmol/L [employer] Phone: Creatinine [Mass/Vol] 0.6 mg/dL 0.50 - 0.90 mg/dL [employer] Phone: Free PSA/Total PSA [Mass fraction] 6.9 g/dL 6.4 - 8.3 g/dL [employer] Phone: GFR >60 >60 mL/min [employer] Phone: GFR Non- >60 >60 mL/min [employer] Phone: GFR/1.73 sq M.predicted MDRD (S/P/Bld) [Vol rate/Area] [employer] Phone: Comment on above: Average GFR for 60-6 9 years old: 85 mL/min/1.73sq m Chronic Kidney Disease: <60 mL/min/1.73sq m Kidney failure: <15 mL/min/1.73sq m eGFR calculated using average adult body mass. Additional eGFR calculator available at: http://www.auctionPAL/multiple_crcl_2012.htm GFR/1.73 sq M.predicted MDRD (S/P/Bld) [Vol rate/Area] NOT REPORTED [employer] Phone: Glucose [Mass/Vol] 122 mg/dL High 70 - 99 mg/dL [employer] Phone: Interpretation and review of laboratory results Abnormal [employer] Phone: Potassium [Moles/Vol] 3.8 mmol/L 3.7 - 5.3 mmol/L [employer] Phone: Sodium [Moles/Vol] 142 mmol/L 135 - 144 mmol/L [employer] Phone: Urea nitrogen (BldV) [Mass/Vol] 16 mg/dL 8 - 23 mg/dL [employer] Work Phone: Urea nitrogen/Creatinine (Bld) [Mass ratio] 27 High [facility] [employer] Work Phone: [facility] [employer] Work Phone: Microscopic UrinalysisOrdere d By: Mayra Servinitrov on 07-07-2021 - [facility] [employer] Work Phone: Amorphous, UA NOT REPORTED None [employer] [facility] Hospital[facility] Work Phone: Bacteria, UA 2+ Abnormal None [facility] [employer] Work Phone: Casts UA NOT REPORTED /LPF [facility] [employer] Work Phone: Crystals, UA NOT REPORTED None /HPF [facility] Work Phone: Epithelial Cells UA 5 TO 10 /HPF [facility] Work Phone: Interpretation and review of laboratory results Abnormal [facility] [employer] Work Phone: Mucus, UA 1+ Abnormal None [facility] [employer] Work Phone: Other Observations UA NOT REPORTED NOT REQ. [facility] [employer] Work Phone: RBC, UA 5 TO 10 [facility] [employer] Work Phone: Renal Epithelial, UA NOT REPORTED 0 /HPF [facility] [employer] Work Phone: Trichomonas, UA NOT REPORTED None [facility] [employer] Work Phone: WBC, UA 2 TO 5 0 /HPF [facility] [employer] Work Phone: Yeast, UA NOT REPORTED None [facility] [employer] Work Phone: [facility] [employer] Work Phone: UrinalysisOrdered By: Olamide ruelas Marilu on 07-07-2021 Bilirubin Urine Negative NEGATIVE [facility] Work Phone: Color, UA YELLOW YELLOW [facility] [employer] Work Phone: Glucose, Ur Negative NEGATIVE [employer] Phone: Interpretation and review of laboratory results Abnormal [employer] Phone: Ketones Ql (U) Negative NEGATIVE [employer] Work Phone: Leukocyte esterase Test strip Ql (U) 1+ Abnormal NEGATIVE [employer] Phone: Nitrite, Urine Negative NEGATIVE [employer] Work Phone: pH, UA 6.[address] [employer] Phone: Protein, UA TRACE Abnormal NEGATIVE [employer] Phone: Specific [place], UA 1.020 [employer] Phone: Turbidity UA CLEAR CLEAR [employer] Phone: Urinalysis Comments [employer] Phone: Urine Hgb TRACE Abnormal NEGATIVE [employer] Phone: Urobilinogen, Urine Normal Normal [facility] Phone: [employer] Phone: Urinalysis, Routineon 2020 Bilirubin, SemiQt,Ur Negative Normal NEG [facility] Comment on above: Performed By: #### U MICAO, UA #### [facility] [address] [place] [address] Cattle Tester: Jacob Campos MD Blood, Urine TRACE Abnormal NEG [facility] Comment on above: Performed By: #### U MICAO, UA #### [facility] [address] [place] [address] Cattle Tester: Jacob Campos MD Clarity (U) CLEAR Normal CLEAR [facility] Comment on above: Performed By: #### U MICAO, UA #### [facility] [address] [place] [address] Cattle Tester: Jacob Campos MD Color (U) YELLOW Normal YEL [facility] Comment on above: Performed By: #### U EULALIAO, UA #### [facility] [address] [place], [place] [phone] Cattle Tester: Jacob Campos MD Comment Normal [facility] Comment on above: Performed By: #### U EULALIAO, UA #### [facility] [address] [place], [place] [phone] Cattle Tester: Jacob Campos MD Glucose Ql (U) Negative Normal NEG [facility] Comment on above: Performed By: #### U EULALIAO, UA #### [facility] [address] [place], [place] [phone] Cattle Tester: Jacob Campos MD Ketones Ql (U) Negative Normal NEG [facility] Comment on above: Performed By: #### U MICAO, UA #### [facility] [address] [place], [place] [phone] Cattle Tester: Jacob Campos MD Leukocyte esterase Test strip Ql (U) 1+ Abnormal NEG [facility] Comment on above: Performed By: #### U MICAO, UA #### [facility] [address] [place], [place] [phone] Cattle Tester: Jacob Campos MD Nitrite,Ur Negative Normal NEG [facility] Comment on above: Performed By: #### U MICAO, UA #### [facility] [address] [facility] [place] [phone] Cattle Tester: Jacob Campos MD PH,Ur 6.0 Normal 5.0-8.0 [facility] Comment on above: Performed By: #### U MICAO, UA #### [facility] [address] [facility] [place] [phone] Cattle Tester: Jacob Campos MD Protein Ql (U) TRACE Abnormal NEG [facility] Comment on above: Performed By: #### U MICAO, UA #### [facility] [address] [place], [place] [phone] Cattle Tester: Jacob Campos MD Spec. [place],Ur 1.020 Normal 1.005-1.030 [facility] Comment on above: Performed By: #### U EULALIAO, UA #### [facility] [address] [place], [place] [phone] Cattle Tester: Jacob Campos MD Urobilinogen,Ur Normal Normal NORM [facility] Comment on above: Performed By: #### U RICH UA #### [facility] [address] [place] [address] Cattle Tester: Jacob Campos MD Urinalysis,Microon 1 ----- Normal [facility] Comment on above: Performed By: #### U RICH UA #### [facility] [address] [place], [place] [phone] Cattle Tester: Jacob Campos MD Bacteria 2+ Abnormal NONE [facility] Comment on above: Performed By: #### U RICH UA #### [facility] [address] [place] [address] Cattle Tester: Jacob Campos MD Epithelial cells LM Ql (Urine sed) 5 TO 10 Normal [facility] Comment on above: Performed By: #### U EULALIAO, UA #### [facility] [address] [place], [place] [phone] Cattle Tester: Jacob Campos MD Mucus Strands 1+ Abnormal NONE [facility] Comment on above: Performed By: #### U RICH, UA #### [facility] [address] [place], [place] [phone] Cattle Tester: Jacob Campos MD Urine RBC's 5 TO 10 Normal 0-2 [facility] Comment on above: Performed By: #### U EULALIAO, UA #### [facility] [address] [place] [address] Cattle Tester: Jacob Campos MD Urine WBC's 2 TO 5 Normal 0 [facility] Comment on above: Performed By: #### U MICAO, UA #### [facility] [address] [place], [place] [phone] Cattle Tester: Jacob Campos MD Amorphous sediment LM Ql (Urine sed) NOT REPORTED Normal NONE [facility] Comment on above: Performed By: #### U MICAO, UA #### [facility] [address] [place], [place] [phone] Cattle Tester: Jacob Campos MD Casts NOT REPORTED Normal [facility] Comment on above: Performed By: #### U MICAO, UA #### [facility] [address] [place], [place] [phone] Cattle Tester: Jacob Campos MD Crystals LM Nom (Urine sed) NOT REPORTED Normal [facility] Comment on above: Performed By: #### U EULALIAO, UA #### [facility] [address] [place], [place] [phone] Cattle Tester: Jacob Campos MD Epithelial, Renal NOT REPORTED Normal 0 [facility] Comment on above: Performed By: #### U EULALIAO, UA #### [facility] [address] [facility] [place] [phone] Cattle Tester: Jacob Campos MD Other Observations NOT REPORTED Normal NREQ [facility] Comment on above: Performed By: #### U MICAO, UA #### [facility] [address] [place], [place] [phone] Cattle Tester: Jacob Campos MD Trichomonas NOT REPORTED Normal [facility] Comment on above: Performed By: #### U MICAO, UA #### [facility] [address] [place] [address] Cattle Tester: Jacob Campos MD Yeast NOT REPORTED Normal NONE [facility] Comment on above: Performed By: #### U KRISSY VILLANUEVA #### [facility] [address] [address] [place] [address] Cattle Tester: Jacob Campos MD XR hand RT min 3V*on 021 XR hand RT min 3V* [facility] Main [address] [address] XRay Report Signed Patient: Isabel Waddell MR#: [id number] : 1960 Acct:[id number] Age/Sex: 60 / F ADM Date: 03/28/21 Loc: [facility] Room: Type: [facility] Attending Dr: Sona Hurst MD Ordering [...] Mckayla Rai M.D.03/28/2021 1:26 PM Dictation Location: [place] [address] Transcribed By: [facility] 03/28/21 1326 Dictated By: Mckayla Rai MD 03/28/21 132 Signed By: 03/28/21 1326 Normal [facility] BIOAVAILABLE TESTOSTERONE FE MALE, CHILDon 11-29-2019 Albumin [Mass/Vol] 4.3 g/dL Normal 3.6-5.1 [facility] Comment on above: Result Comment: Age and Gender Specific Reference Interval Applied Interpretive Information: Total Testosterone Reference Interval (ng/dL) Premenopausal 9 - 55 Postmenopausal 5 - 32 Bioavailable Testosterone (ng/dL) Postmenopausal 1.5 - 9.4 Free Testosterone Reference Interval (pg/mL) Postmenopausal 0.6 - 3.8 This test was developed and its performance characteristics determined by [facility] ([facility]). It has not been cleared or approved by the U.S. Food and Drug Administration (FDA). The FDA has determined that such clearance or approval is not necessary. This test is used for clinical purposes and should not be regarded as investigational or for research. [facility] is qualified to perform high complexity testing under the Clinical Laboratory Improvement Amendments (CLIA). Test performed at [facility] [address] [place] [address] 3, [address] [place] [address] Laundry Pricing Clerk: Adi Barksdale M.D. CLIA Number [id number] CAP Accreditation Number [id number] [facility] [address] [place] [address] CLIA No. [id number] CAP Accreditation No. [id number] Laundry Pricing Clerk: Isiah Burr M.D. Performed By: #### 1 000, 4500, 4510, 4520, 82021, 5000, 53850, 56647 #### [facility] Unless Otherwise Noted [address] [place] [address] / COLA #4724/CLIA # [id number] SEX HORM BINDING GLOBULIN 56.3 nmol/L Normal 17.3-125.0 [facility] Comment on above: Performed By: #### 1 000, 4500, 4510, 4520, 95556, 5000, 83313, 97672 #### [facility] Unless Otherwise Noted [address] [address] / COLA #4724/CLIA # [id number] TESTOSTERONE BIO FEMALE 2.9 ng/dL Normal 1.5-9.4 [facility] Comment on above: Performed By: #### 1 000, 4500, 4510, 4520, 96046, 5000, 84799, 61227 #### [facility] Unless Otherwise Noted [address] [address] / COLA #4724/CLIA # [id number] TESTOSTERONE FREE FEMALE 1.3 pg/mL Normal 0.6-3.8 [facility] Comment on above: Performed By: #### 1 000, 4500, 4510, 4520, 82418, 5000, 65997, 49429 #### [facility] Unless Otherwise Noted [address] [place] [address] / COLA #4724/CLIA # [id number] TESTOSTERONE, ULTRASENSITIVE 10 ng/dL Normal 9-55 [facility] Comment on above: Performed By: #### 1 000, 4500, 4510, 4520, 28154, 5000, 81585, 35184 #### [facility] Unless Otherwise Noted [address] [address] / COLA #4724/CLIA # [id number] ADRENOCORTICOTROPIC HORMon 0 11-27-2019 ADRENOCORTICOTROPIC HORM 18.1 PG/ML Normal 7.2-63.3 [facility] Comment on above: Result Comment: Reference range established for normal adult patients, morning blood draw (7-10 AM). Certain synthetic ACTH fragments may interfere with this assay. Test performed at [facility] [address] [place] [address] CLIA Number [id number] [facility] Accreditation Number [id number] ------- Performed By: #### 1 000, 4500, 4510, 4520, 40227, 5000, 60638, 56843 #### [facility] Unless Otherwise Noted [address] [place] [address] / COLA #4724/CLIA # [id number] IGF-1on 11-27-2019 IGF-1 151 NG/ML Normal 43-187 [facility] Comment on above: Result Comment: Test performed at [facility] [address] [place] [address] [place] Number [id number] [facility] Accreditation Number [id number] ------- Performed By: #### 1 000, 4500, 4510, 4520, 93454, 5000, 73339, 50610 #### [facility] Unless Otherwise Noted [address] [place] [address] / COLA #4724/CLIA # [id number] CORTISOL Delonte 11-26-2019 CORTISOL AM 8.6 UG/DL Normal 4.5-22.7 [facility] Comment on above: Performed By: #### 1 000, 4500, 4510, 4520, 51553, 5000, 36309, 10619 #### [facility] Unless Otherwise Noted [address] [place] [address] [place] [address] / COLA #4724/CLIA # [id number] FSHon 11-26-2019 FSH 26.30 mlU/mL Normal [facility] Comment on above: Result Comment: REFE RENCE RANGES FOR FEMALES: OVULATING FEMALE: FOLLICULAR PHASE 1.98-11.6 PEAK 5.14-23.4 LUTEAL PHASE 1.38-9.58 POSTMENOPAUSAL FEMALE 21.5-131 Performed By: #### 4 530, 4540, 4550, 4577 #### [facility] Unless Otherwise Noted [address] [address] / COLA #4724/CLIA # [id number] LHon 11-26-2019 LH 23.00 mIU/ml Normal [facility] Comment on above: Result Comment: REFE RENCE RANGES FOR FEMALE: OVULATING FEMALE: FOLLICULAR PHASE 2.58-12.1 PEAK 27.3-96.9 LUTEAL PHASE 0.83-15.5 POSTMENOPAUSAL FEMALE 13.1-86.5 Performed By: #### 4 530, 4540, 4550, 4577 #### [facility] Unless Otherwise Noted [address] [address] / COLA #4724/CLIA # [id number] PROLACTINon 11-26-2019 PROLACTIN 17.3 ng/ml Normal 2.1-47.6 [facility] Comment on above: Result Comment: IVELISSE ENOPAUSAL FEMALE 2.1 - 47.6 POSTMENOPAUSAL FEMALE 0.0 - 41.4 Performed By: #### 1 000, 4500, 4510, 4520, 13356, 5000, 59897, 23240 #### [facility] Unless Otherwise Noted [address] [address] / COLA #4724/CLIA # [id number] CBC W/AUTO DIFFon 11-25-2019 ABS BASOPHILS 0.0 X10E9/L Normal 0-0.9 [facility] Comment on above: Result Comment: Perf ormed at [facility] [address] [facility] [address] Performed By: #### 1 000, 4500, 4510, 4520, 17726, 5000, 54315, 08089 #### [facility] Unless Otherwise Noted [address] [address] / COLA #4724/CLIA # [id number] ABS NEUTROPHILS 2.6 X10E9/L Normal 1.5-6.6 [facility] Comment on above: Performed By: #### 1 000, 4500, 4510, 4520, 58646, 5000, 59088, 96026 #### [facility] Unless Otherwise Noted [address] [address] / COLA #4724/CLIA # [id number] Basophils/100 WBC (Bld) 0.6 % Normal [facility] Comment on above: Performed By: #### 1 000, 4500, 4510, 4520, 07999, 5000, 06308, 94708 #### [facility] Unless Otherwise Noted [address] [address] / COLA #4724/CLIA # [id number] Eosinophils (Bld) [#/Vol] 0.2 10*3/uL Normal 0.0-0.4 [facility] Comment on above: Performed By: #### 1 000, 4500, 4510, 4520, 97841, 5000, 75043, 46640 #### [facility] Unless Otherwise Noted [address] [address] / COLA #4724/CLIA # [id number] Eosinophils/100 WBC (Bld) 3.1 % Normal [facility] Comment on above: Performed By: #### 1 000, 4500, 4510, 4520, 18333, 5000, 85668, 09018 #### [facility] Unless Otherwise Noted [address] [address] / COLA #4724/CLIA # [id number] Erythrocyte distribution width (RBC) [Ratio] 13.3 % Normal 11.5-14.7 [facility] Comment on above: Performed By: #### 1 000, 4500, 4510, 4520, 84106, 5000, 53423, 33577 #### [facility] Unless Otherwise Noted [address] [address] / COLA #4724/CLIA # [id number] Hematocrit (Bld) [Volume fraction] 39.4 % Normal 35-47 [facility] Comment on above: Performed By: #### 1 000, 4500, 4510, 4520, 21599, 5000, 67602, 93888 #### [facility] Unless Otherwise Noted [address] [address] / COLA #4724/CLIA # [id number] Hemoglobin (Bld) [Mass/Vol] 13.3 g/dL Normal 11.7-16.0 [facility] Comment on above: Performed By: #### 1 000, 4500, 4510, 4520, 80516, 5000, 71691, 41271 #### [facility] Unless Otherwise Noted [address] [address] / COLA #4724/CLIA # [id number] Lymphocytes (Bld) [#/Vol] 1.8 10*3/uL Normal 1.0-3.5 [facility] Comment on above: Performed By: #### 1 000, 4500, 4510, 4520, 75606, 5000, 80284, 38157 #### [facility] Unless Otherwise Noted [address] [address] / COLA #4724/CLIA # [id number] Lymphocytes/100 WBC (Bld) 35.0 % Normal [facility] Comment on above: Performed By: #### 1 000, 4500, 4510, 4520, 27692, 5000, 07994, 59086 #### [facility] Unless Otherwise Noted [address] / COLA #4724/CLIA # [id number] MCH (RBC) [Entitic mass] 31.2 pg Normal 26-33.5 [facility] Comment on above: Performed By: #### 1 000, 4500, 4510, 4520, 95529, 5000, 01255, 36654 #### [facility] Unless Otherwise Noted [address] / COLA #4724/CLIA # [id number] MCHC (RBC) [Mass/Vol] 33.7 g/dL Normal 32-36 [facility] Comment on above: Performed By: #### 1 000, 4500, 4510, 4520, 60279, 5000, 69495, 26400 #### [facility] Unless Otherwise Noted [address] [address] / COLA #4724/CLIA # [id number] MCV (RBC) [Entitic vol] 93 fL Normal 81-100 [facility] Comment on above: Performed By: #### 1 000, 4500, 4510, 4520, 18182, 5000, 67286, 87649 #### [facility] Unless Otherwise Noted [address] [place] [address] / COLA #4724/CLIA # [id number] Monocytes (Bld) [#/Vol] 0.5 10*3/uL Normal 0-0.9 [facility] Comment on above: Performed By: #### 1 000, 4500, 4510, 4520, 61708, 5000, 65002, 74528 #### [facility] Unless Otherwise Noted [address] [place] [address] / COLA #4724/CLIA # [id number] Monocytes/100 WBC (Bld) 10.0 % Normal [facility] Comment on above: Performed By: #### 1 000, 4500, 4510, 4520, 05605, 5000, 40435, 60923 #### [facility] Unless Otherwise Noted [address] [place] [address] / COLA #4724/CLIA # [id number] Neutrophils/100 WBC (Bld) 51.3 % Normal [facility] Comment on above: Performed By: #### 1 000, 4500, 4510, 4520, 30302, 5000, 36097, 69617 #### [facility] Unless Otherwise Noted [address] [address] / COLA #4724/CLIA # [id number] Platelet mean volume (Bld) [Entitic vol] 8.8 fL Normal 7-12 [facility] Comment on above: Performed By: #### 1 000, 4500, 4510, 4520, 97021, 5000, 15673, 07929 #### [facility] Unless Otherwise Noted [address] [facility] [address] [place] [address] / COLA #4724/CLIA # [id number] Platelets (Bld) [#/Vol] 225 10*3/uL Normal 150-450 [facility] Comment on above: Performed By: #### 1 000, 4500, 4510, 4520, 85412, 5000, 34909, 08603 #### [facility] Unless Otherwise Noted [address] [address] / COLA #4724/CLIA # [id number] RBC (Bld) [#/Vol] 4.25 X10E12/L Normal 3.80-5.20 [facility] Comment on above: Performed By: #### 1 000, 4500, 4510, 4520, 26423, 5000, 36255, 52248 #### [facility] Unless Otherwise Noted [address] [address] / COLA #4724/CLIA # [id number] WBC (Bld) [#/Vol] 5.1 10*3/uL Normal 4.8-10.8 [facility] Comment on above: Performed By: #### 1 000, 4500, 4510, 4520, 15430, 5000, 45195, 09992 #### [facility] Unless Otherwise Noted [address] [address] / COLA #4724/CLIA # [id number] [facility] 11-25-2019 Albumin [Mass/Vol] 4.2 g/dL Normal 3.5-5.0 [facility] Comment on above: Performed By: #### 1 000, 4500, 4510, 4520, 20710, 5000, 22070, 27562 #### [facility] Unless Otherwise Noted [address] [address] / COLA #4724/CLIA # [id number] ALP [Catalytic activity/Vol] 103.0 U/L Normal 38.0-126.0 [facility] Comment on above: Performed By: #### 1 000, 4500, 4510, 4520, 97422, 5000, 87628, 00818 #### [facility] Unless Otherwise Noted [address] [address] / COLA #4724/CLIA # [id number] ALT [Catalytic activity/Vol] 62.0 U/L Normal 13.0-69.0 [facility] Comment on above: Performed By: #### 1 000, 4500, 4510, 4520, 74202, 5000, 16062, 50969 #### [facility] Unless Otherwise Noted [address] [place] [address] / COLA #4724/CLIA # [id number] Anion gap [Moles/Vol] 4.0 mmol/L Low 10.0-15.0 [facility] Comment on above: Performed By: #### 1 000, 4500, 4510, 4520, 45592, 5000, 46918, 44023 #### [facility] Unless Otherwise Noted [address] [address] / COLA #4724/CLIA # [id number] AST [Catalytic activity/Vol] 30.0 U/L Normal 15.0-46.0 [facility] Comment on above: Performed By: #### 1 000, 4500, 4510, 4520, 58737, 5000, 81648, 15558 #### [facility] Unless Otherwise Noted [address] [place] [address] / COLA #4724/CLIA # [id number] Bilirubin Ql (U) 0.50 mg/dL Normal 0.20-1.30 [facility] Comment on above: Performed By: #### 1 000, 4500, 4510, 4520, 10879, 5000, 90489, 26131 #### [facility] Unless Otherwise Noted [address] [place], [place] [address] / COLA #4724/CLIA # [id number] BUN/Cre Ratio 32.9 Ratio High 7.0-27.0 [facility] Comment on above: Performed By: #### 1 000, 4500, 4510, 4520, 88883, 5000, 02209, 58885 #### [facility] Unless Otherwise Noted [address] [place] [address] / COLA #4724/CLIA # [id number] Calcium [Mass/Vol] 9.5 mg/dL Normal 8.4-10.2 [facility] Comment on above: Performed By: #### 1 000, 4500, 4510, 4520, 37173, 5000, 57152, 63449 #### [facility] Unless Otherwise Noted [address] [place] [address] / COLA #4724/CLIA # [id number] Chloride [Moles/Vol] 102.0 mmol/L Normal 98.0-107.0 [facility] Comment on above: Performed By: #### 1 000, 4500, 4510, 4520, 05637, 5000, 38874, 18119 #### [facility] Unless Otherwise Noted [address] [address] / COLA #4724/CLIA # [id number] CO2 [Moles/Vol] 31.0 mmol/L High 22.0-30.0 [facility] Comment on above: Performed By: #### 1 000, 4500, 4510, 4520, 00857, 5000, 60833, 21427 #### [facility] Unless Otherwise Noted [address] [address] / COLA #4724/CLIA # [id number] Creatinine [Mass/Vol] 0.7 mg/dL Normal 0.5-1.0 [facility] Comment on above: Performed By: #### 1 000, 4500, 4510, 4520, 19703, 5000, 36321, 56804 #### [facility] Unless Otherwise Noted [address] [address] / COLA #4724/CLIA # [id number] GFR/1.73 sq M predicted among blacks MDRD (S/P/Bld) [Vol rate/Area] 110.1 ml/m1.73 Normal [facility] Comment on above: Performed By: #### 1 000, 4500, 4510, 4520, 39836, 5000, 59328, 08486 #### [facility] Unless Otherwise Noted [address] [address] / COLA #4724/CLIA # [id number] GFR/1.73 sq M predicted among non-blacks MDRD (S/P/Bld) [Vol rate/Area] 91.0 ml/m1.73 Normal [facility] Comment on above: Performed By: #### 1 000, 4500, 4510, 4520, 54347, 5000, 29119, 82984 #### [facility] Unless Otherwise Noted [address] [place] [address] / COLA #4724/CLIA # [id number] GFR/1.73 sq M predicted among non-blacks MDRD (S/P/Bld) [Vol rate/Area] 96.2 ml/m1.73 Normal [facility] Comment on above: Performed By: #### 1 000, 4500, 4510, 4520, 45144, 5000, 71742, 28406 #### [facility] Unless Otherwise Noted [address] [place] [address] / COLA #4724/CLIA # [id number] Glucose [Mass/Vol] 109.0 mg/dL High 74.0-106.0 [facility] Comment on above: Performed By: #### 1 000, 4500, 4510, 4520, 12314, 5000, 99912, 56896 #### [facility] Unless Otherwise Noted [address] [place] [address] / COLA #4724/CLIA # [id number] Potassium [Moles/Vol] 4.3 mmol/L Normal 3.5-5.1 [facility] Comment on above: Performed By: #### 1 000, 4500, 4510, 4520, 35317, 5000, 72913, 21890 #### [facility] Unless Otherwise Noted [address] [place], [place] [address] / COLA #4724/CLIA # [id number] Protein [Mass/Vol] 6.8 g/dL Normal 6.3-8.2 [facility] Comment on above: Performed By: #### 1 000, 4500, 4510, 4520, 39661, 5000, 61585, 35384 #### [facility] Unless Otherwise Noted [address] [place] [address] / COLA #4724/CLIA # [id number] Sodium [Moles/Vol] 137.0 mmol/L Normal 137.0-145.0 [facility] Comment on above: Performed By: #### 1 000, 4500, 4510, 4520, 37820, 5000, 56087, 19944 #### [facility] Unless Otherwise Noted [address] [place], [place] [address] / COLA #4724/CLIA # [id number] Urea nitrogen [Mass/Vol] 23.0 mg/dL High 7.0-17.0 [facility] Comment on above: Performed By: #### 1 000, 4500, 4510, 4520, 24381, 5000, 79602, 08984 #### [facility] Unless Otherwise Noted [address] [place], [place] [address] / COLA #4724/CLIA # [id number] FT3on 11-25-2019 FT3 4.39 pg/mL Normal 2.71-6.16 [facility] Comment on above: Performed By: #### 1 000, 4500, 4510, 4520, 72326, 5000, 26038, 43133 #### [facility] Unless Otherwise Noted [address] [address] / COLA #4724/CLIA # [id number] FT4on 11-25-2019 Free T4 [Mass/Vol] 0.95 ng/dL Normal 0.64-1.79 [facility] Comment on above: Performed By: #### 1 000, 4500, 4510, 4520, 39465, 5000, 60174, 98098 #### [facility] Unless Otherwise Noted [address] [facility] [address] [place] [address] / COLA #4724/CLIA # [id number] TSHon 11-25-2019 TSH Qn 0.35 uIU/ml Low 0.47-4.68 [facility] Comment on above: Performed By: #### 1 000, 4500, 4510, 4520, 72902, 5000, 16438, 26488 #### [facility] Unless Otherwise Noted [address] [facility] [address] [place] [address] / COLA #4724/CLIA # [id number] Vital Signs Date Time Vital Sign Value Performing Clinician Facility 11-26-2024 09:20-0500 Body height 167.64 cm [facility] 11-26-2024 09:20-0500 Body mass index (BMI) [Ratio] 25.4 kg/m2 [facility] 11-26-2024 09:20-0500 Body weight 71.66 kg [facility] 11-26-2024 09:20-0500 Diastolic blood pressure 91 mm[Hg] [facility] 11-26-2024 09:20-0500 Heart rate 97 /min [facility] 11-26-2024 09:20-0500 Respiratory rate 12 /min [facility] 11-26-2024 09:20-0500 Systolic blood pressure 159 mm[Hg] [facility] 08-05-2024 11:44-0400 Body height 167.6 cm Henry Ramos MD Work Phone: [facility] 08-05-2024 11:44-0400 Body mass index (BMI) [Ratio] 23.88 kg/m2 Henry Ramos MD Work Phone: [facility] 08-05-2024 11:44-0400 Body temperature 99 [degF] Henry Ramos MD Work Phone: [facility] 08-05-2024 11:44-0400 Body weight 67.1 kg Henry Ramos MD Work Phone: [facility] 08-05-2024 11:44-0400 Diastolic blood pressure 75 mm[Hg] Henry Ramos MD Work Phone: [facility] 08-05-2024 11:44-0400 Heart rate 81 /min Henry Ramos MD Work Phone: [facility] 08-05-2024 11:44-0400 SaO2% (BldA) [Mass fraction] 97 % Henry Ramos MD Work Phone: [facility] 08-05-2024 11:44-0400 Systolic blood pressure 141 mm[Hg] Henry Ramos MD Work Phone: [facility] 06-29-2024 11:36-0400 Body height 167.64 cm [facility] 06-29-2024 11:36-0400 Body mass index (BMI) [Ratio] 22.6 kg/m2 [facility] 06-29-2024 11:36-0400 Body weight 63.67 kg [facility] 06-29-2024 11:36-0400 Diastolic blood pressure 81 mm[Hg] [facility] 06-29-2024 11:36-0400 Heart rate 86 /min [facility] 06-29-2024 11:36-0400 Respiratory rate 12 /min [facility] 06-29-2024 11:36-0400 Systolic blood pressure 135 mm[Hg] [facility] 05-04-2024 13:01-0400 Body height 167.64 cm [facility] 05-04-2024 13:01-0400 Body mass index (BMI) [Ratio] 22.6 kg/m2 [facility] 05-04-2024 13:01-0400 Body weight 63.5 kg [facility] 05-04-2024 13:01-0400 Diastolic blood pressure 78 mm[Hg] [facility] 05-04-2024 13:01-0400 Heart rate 88 /min [facility] 05-04-2024 13:01-0400 SaO2% (BldA) [Mass fraction] 98 % [facility] 05-04-2024 13:01-0400 Systolic blood pressure 136 mm[Hg] [facility] 09-29-2023 10:33-0500 Body height 167.6 cm South Saba DO Work Phone: [facility] 09-29-2023 10:33-0500 Body weight 62.14 kg South Saba DO Work Phone: [facility] 09-12-2023 10:00-0400 Body height 167.64 cm Roland Ball Other [facility] [employer] Other 09-12-2023 10:00-0400 Body mass index (BMI) [Ratio] 23.05 kg/m2 Roland Ball Other [facility] [employer] Other 09-12-2023 10:00-0400 Body weight 64.77 kg Roland Ball Other [employer] Other 09-12-2023 10:00-0400 Diastolic blood pressure 75 mm[Hg] Roland Ball Other [facility] Other 09-12-2023 10:00-0400 Respiratory rate 12 /min Roland Ball Other [facility] Other 09-12-2023 10:00-0400 Systolic blood pressure 131 mm[Hg] Roland Ball Other [facility] Other 08-29-2023 10:55-0400 Body height 167.6 cm Elder Galan APRN.[employer] DEVELOPER Work Phone: [facility] 10-13-2023 10:55-0400 Body temperature 98.01 [degF] Elder Angelia POSITION CLASSIFICATION MANAGER.[employer] MID[employer]LE[employer] DEVELOPER Work Phone: [facility] 08-29-2023 10:55-0400 Body weight 66.68 kg Elder Angelia POSITION CLASSIFICATION MANAGER.[employer] DEVELOPER Work Phone: [facility] 08-29-2023 10:55-0400 Diastolic blood pressure 78 mm[Hg] Elder Angelia POSITION CLASSIFICATION MANAGER.[employer] DEVELOPER Work Phone: [facility] 08-29-2023 10:55-0400 Heart rate 82 /min Elder Angelia POSITION CLASSIFICATION MANAGER.[employer] DEVELOPER Work Phone: [facility] 08-29-2023 10:55-0400 SaO2% (BldA) [Mass fraction] 99 % Elder Angelia POSITION CLASSIFICATION MANAGER.[employer] MIDDLE[employer] DEVELOPER Work Phone: [facility] 08-29-2023 10:55-0400 Systolic blood pressure 163 mm[Hg] Elder Angelia POSITION CLASSIFICATION MANAGER.[employer] MIDD[employer] DEVELOPER Work Phone: [facility] 08-29-2023 10:03-0400 Body temperature 98.01 [degF] Heidi Hatfield MD Work Phone: [facility] 08-29-2023 10:03-0400 Body weight 66.68 kg Heidi Hatfield MD Work Phone: [facility] 08-29-2023 10:03-0400 Diastolic blood pressure 77 mm[Hg] Heidi Hatfield MD Work Phone: [facility] 08-29-2023 10:03-0400 Heart rate 82 /min Heidi Hatfield MD Work Phone: [facility] 08-29-2023 10:03-0400 Respiratory rate 16 /min Heidi Hatfield MD Work Phone: [facility] 08-29-2023 10:03-0400 SaO2% (BldA) [Mass fraction] 99 % Heidi Hatfield MD Work Phone: [facility] 08-29-2023 10:03-0400 Systolic blood pressure 157 mm[Hg] Heidi Hatfield MD Work Phone: [facility] 07-04-2023 09:18-0400 Body height 167.6 cm South Jayant DO Work Phone: [facility] 07-04-2023 09:18-0400 Body temperature 97.59 [degF] South Jayant DO Work Phone: [facility] 07-04-2023 09:18-0400 Body weight 66.5 kg South Jayant DO Work Phone: [facility] 07-04-2023 09:18-0400 Diastolic blood pressure 68 mm[Hg] South Jayant DO Work Phone: [facility] 07-04-2023 09:18-0400 Heart rate 73 /min South Jayant DO Work Phone: [facility] 07-04-2023 09:18-0400 SaO2% (BldA) [Mass fraction] 100 % South Jayant DO Work Phone: [facility] 07-04-2023 09:18-0400 Systolic blood pressure 139 mm[Hg] South Jayant DO Work Phone: [facility] 06-27-2023 10:30-0400 Body temperature 97.39 [degF] Heidi Hatfield MD Work Phone: [facility] 06-27-2023 10:30-0400 Body weight 69.4 kg Heidi Hatfield MD Work Phone: [facility] 06-27-2023 10:30-0400 Diastolic blood pressure 76 mm[Hg] Heidi Hatfield MD Work Phone: [facility] 06-27-2023 10:30-0400 Heart rate 70 /min Heidi Hatfield MD Work Phone: [facility] 06-27-2023 10:30-0400 Respiratory rate 16 /min Heidi Hatfield MD Work Phone: [facility] 06-27-2023 10:30-0400 SaO2% (BldA) [Mass fraction] 97 % Heidi Hatfield MD Work Phone: [facility] 06-27-2023 10:30-0400 Systolic blood pressure 141 mm[Hg] Heidi Hatfield MD Work Phone: [facility] 05-23-2023 09:45-0400 Body height 167.64 cm Roland Ball Other [facility] Other 05-23-2023 09:45-0400 Body mass index (BMI) [Ratio] 24.79 kg/m2 Roland Ball Other [facility] Other 05-23-2023 09:45-0400 Body weight 69.67 kg Roland Ball Other [facility] Other 05-23-2023 09:45-0400 Diastolic blood pressure 78 mm[Hg] Roland Ball Other [facility] Other 05-23-2023 09:45-0400 Respiratory rate 12 /min Roland Ball Other [facility] Other 05-23-2023 09:45-0400 Systolic blood pressure 158 mm[Hg] Roland Ball Other [facility] Other 04-23-2023 13:30-0400 Body height 167.64 cm Roland Ball Other [facility] Other 04-23-2023 13:30-0400 Body mass index (BMI) [Ratio] 24.34 kg/m2 Roland Ball Other [facility] Other 04-23-2023 13:30-0400 Body weight 68.4 kg Roland Ball Other [facility] Other 04-23-2023 13:30-0400 Diastolic blood pressure 74 mm[Hg] Roland Ball Other [facility] Other 04-23-2023 13:30-0400 Respiratory rate 12 /min Roland Ball Other [facility] Other 04-23-2023 13:30-0400 Systolic blood pressure 131 mm[Hg] Roland Ball Other [facility] Other 03-05-2023 09:30-0400 Body height 167.6 cm Cherelle Pack POSITION CLASSIFICATION MANAGER.[employer] DEVELOPER Work Phone: [facility] 03-05-2023 09:30-0400 Body weight 70.22 kg Cherelle Pack POSITION CLASSIFICATION MANAGER.[employer] MIDD[employer] DEVELOPER Work Phone: [facility] 03-05-2023 09:30-0400 Diastolic blood pressure 90 mm[Hg] Cherelle Pack POSITION CLASSIFICATION MANAGER.[employer] DEVELOPER Work Phone: [facility] 03-05-2023 09:30-0400 Heart rate 85 /min Cherelle Pack POSITION CLASSIFICATION MANAGER.[employer] MIDDLEWARE DEVELOPER Work Phone: [facility] 03-05-2023 09:30-0400 Systolic blood pressure 152 mm[Hg] Cherelle Pack POSITION CLASSIFICATION MANAGER.[employer] DEVELOPER Work Phone: [facility] 01-24-2023 08:45-0500 Body height 167.64 cm Roland Ball Other [facility] Other 01-24-2023 08:45-0500 Body mass index (BMI) [Ratio] 24.05 kg/m2 Roland Ball Other [facility] Other 01-24-2023 08:45-0500 Body temperature 96.7 [degF] Roland Ball Other [facility] Other 01-24-2023 08:45-0500 Body weight 67.59 kg Roland Ball Other [facility] Other 01-24-2023 08:45-0500 Diastolic blood pressure 93 mm[Hg] Roland Ball Other [facility] Other 01-24-2023 08:45-0500 Systolic blood pressure 165 mm[Hg] Roland Ball Other [facility] Other 01-20-2023 13:35-0500 Body height 167.64 cm Olya Sanjuanita Other [facility] Other 01-20-2023 13:35-0500 Body mass index (BMI) [Ratio] 24.53 kg/m2 Olya Sanjuanita Other [facility] Other 01-20-2023 13:35-0500 Body temperature 97.3 [degF] Olya Sanjuanita Other [facility] Other 01-20-2023 13:35-0500 Body weight 68.95 kg Olya Sanjuanita Other [facility] Other 01-20-2023 13:35-0500 Respiratory rate 18 /min Olya Sanjuanita Other [facility] Other 01-20-2023 13:35-0500 SaO2% (BldA) [Mass fraction] 95 % Olya Sanjuanita Other [facility] Other 01-03-2023 15:27-0500 Body height 167.6 cm Henry Ramos MD Work Phone: [facility] 01-03-2023 15:27-0500 Body temperature 97.81 [degF] Henry Ramos MD Work Phone: [facility] 01-03-2023 15:27-0500 Body weight 71.17 kg Henry Ramos MD Work Phone: [facility] 01-03-2023 15:27-0500 Diastolic blood pressure 87 mm[Hg] Henry Ramos MD Work Phone: [facility] 01-03-2023 15:27-0500 Heart rate 95 /min Henry Ramos MD Work Phone: [facility] 01-03-2023 15:27-0500 SaO2% (BldA) [Mass fraction] 99 % Henry Ramos MD Work Phone: [facility] 01-03-2023 15:27-0500 Systolic blood pressure 141 mm[Hg] Henry Ramos MD Work Phone: [facility] 09-26-2022 12:30-0500 Diastolic blood pressure 89 mm[Hg] Leila Alamo MD Work Phone: [facility] 09-26-2022 12:30-0500 Heart rate 79 /min Leila Alamo MD Work Phone: [facility] 09-26-2022 12:30-0500 Respiratory rate 18 /min Leila Alamo MD Work Phone: [facility] 09-26-2022 12:30-0500 SaO2% (BldA) [Mass fraction] 98 % Leila Alamo MD Work Phone: [facility] 09-26-2022 12:30-0500 Systolic blood pressure 140 mm[Hg] Leila Alamo MD Work Phone: [facility] 09-26-2022 11:25-0500 Body height 167.6 cm Leila Alamo MD Work Phone: [facility] 09-26-2022 11:25-0500 Body temperature 98.2 [degF] Leila Alamo MD Work Phone: [facility] 09-26-2022 11:25-0500 Body weight 68.04 kg Leila Alamo MD Work Phone: [facility] 08-07-2022 15:28-0400 Body weight 68.95 kg Henry Raoms MD Work Phone: [facility] 08-07-2022 15:28-0400 Diastolic blood pressure 91 mm[Hg] Henry Ramos MD Work Phone: [facility] 08-07-2022 15:28-0400 SaO2% (BldA) [Mass fraction] 98 % Henry Ramos MD Work Phone: [facility] 08-07-2022 15:28-0400 Systolic blood pressure 132 mm[Hg] Henry Ramos MD Work Phone: [facility] 03-13-2022 14:38-0400 Body height 169.5 cm Henry Ramos MD Work Phone: [facility] 03-13-2022 14:38-0400 Body temperature 96.8 [degF] Henry Ramos MD Work Phone: [facility] 03-13-2022 14:38-0400 Body weight 66.32 kg Henry Ramos MD Work Phone: [facility] 03-13-2022 14:38-0400 Diastolic blood pressure 96 mm[Hg] Henry Ramos MD Work Phone: [facility] 03-13-2022 14:38-0400 Heart rate 85 /min Henry Ramos MD Work Phone: [facility] 03-13-2022 14:38-0400 Respiratory rate 16 /min Henry Ramos MD Work Phone: [facility] 03-13-2022 14:38-0400 SaO2% (BldA) [Mass fraction] 98 % Henry Ramos MD Work Phone: [facility] 03-13-2022 14:38-0400 Systolic blood pressure 151 mm[Hg] Henry Ramos MD Work Phone: [facility] 07-07-2021 14:50-0400 Diastolic blood pressure 101 mm[Hg] Mayra Michel MD Work Phone: [employer] Work Phone: 07-07-2021 14:50-0400 Heart rate 70 /min Mayra Michel MD Work Phone: [employer] Work Phone: 07-07-2021 14:50-0400 Respiratory rate 13 /min Mayra Michel MD Work Phone: [employer] Work Phone: 07-07-2021 14:50-0400 SaO2% (BldA) [Mass fraction] 99 % Mayra Michel MD Work Phone: [employer] Work Phone: 07-07-2021 14:50-0400 Systolic blood pressure 133 mm[Hg] Mayra Michel MD Work Phone: [employer] Work Phone: 07-07-2021 13:25-0400 Body height 167.6 cm Mayra Michel MD Work Phone: [employer] Work Phone: 07-07-2021 13:25-0400 Body mass index (BMI) [Ratio] 24.19 kg/m2 Mayra Michel MD Work Phone: [employer] Work Phone: 07-07-2021 13:25-0400 Body temperature 98.6 [degF] Mayra Michel MD Work Phone: [employer] Work Phone: 07-07-2021 13:25-0400 Body weight 67.99 kg Mayra Michel MD Work Phone: [employer] Work Phone: 11-25-2019 16:19-0500 Body weight 70.4 Kg [facility] Comment on above: Performed By: #### 1000, 4500, 4510, 452 0, 12043, 5000, [id number], [id number] #### [facility] Unless Otherwise Noted [address] [place] [address] / COLA #[id number]/CLIA # [id number] Encounters Encounter Date Encounter Type Care Provider Facility Start: 12-10-2024 End: 12-10-2024 ambulatory EDWARD BARR[facility] Start: 12-10-2024 End: 12-10-2024 Office outpatient new 45 minutes Edward Barros MD Work Phone: [facility] Comment on above: Lumbar radiculopathy (Primary Dx); Right hip pain Start: 12-02-2024 End: 12-02-2024 Bamboo flowsheet Dyan SOSA Work Phone: [facility] Start: 12-02-2024 End: 12-02-2024 Bamboo flowsheet Dyan SOSA Work Phone: [facility] Start: 12-02-2024 End: 12-02-2024 ambulatory DYAN ROBB Not Available Start: 12-02-2024 End: 12-02-2024 Office outpatient visit 15 minutes Dyan SOSA Work Phone: [facility] Comment on above: Acute pain of right hip (Primary Dx); History of right hip replacement; Lumbar radiculopathy, right; Sacroiliac joint pain; Right leg weakness; Right leg paresthesias Start: 11-26-2024 End: 11-26-2024 ambulatory [facility] Work Phone: Start: 11-26-2024 End: 11-26-2024 Patient encounter [facility] Work Phone: Start: 11-01-2024 Non-patient / Non-visit [facility] Work Phone: Start: 11-01-2024 End: 11-01-2024 Bamboo flowsheet Dyan Robb PA Work Phone: [facility] Start: 11-01-2024 End: 11-01-2024 Bamboo flowsheet Dyan Robb PA Work Phone: [facility] Start: 11-01-2024 End: 11-01-2024 Office outpatient visit 25 minutes Dyan SOSA Work Phone: [facility] Comment on above: History of right hip replacement (Primary Dx); Acute pain of right hip; Lumbar radiculopathy, right Start: 11-01-2024 End: 11-01-2024 ambulatory DYAN ROBB Not Available Start: 10-07-2024 End: 10-07-2024 Bamboo flowsheet Leigh A Felter POSITION CLASSIFICATION MANAGER-[employer] MID[employer]LE[employer] DEVELOPER Work Phone: [facility] Start: 10-07-2024 End: 10-07-2024 Bamboo flowsheet Leigh A Felter POSITION CLASSIFICATION MANAGER-[employer] MIDDLEWARE DEVELOPER Work Phone: [facility] Start: 10-07-2024 End: 10-07-2024 ambulatory LEIGH A FELTER Not Available Start: 10-07-2024 End: 10-07-2024 Office outpatient visit 15 minutes Leigh A Felter POSITION CLASSIFICATION MANAGER-[employer]LEWARE DEVELOPER Work Phone: [facility] Comment on above: Seborrheic keratosis (Primary Dx); Melanocytic nevus of trunk Start: 09-15-2024 Non-patient / Non-visit [facility] Work Phone: Start: 08-19-2024 End: 08-19-2024 Telemedicine consultation with patient Melody Mena POSITION CLASSIFICATION MANAGER.[employer] MIDDLEWARE DEVELOPER Work Phone: Gynecology Oncology Start: 08-19-2024 End: 08-19-2024 ambulatory MELODY MENA Facility:[facility] Comment on above: NO SHOW (Primary Dx) Start: 08-18-2024 End: 08-18-2024 Telephone encounter Ernesto Chacko BETTY.[employer] MIDDLEWARE DEVELOPER Work Phone: Gynecology Oncology Comment on above: [...] Gynecology Oncology Comment on above: Spotting on methimaz ole Start: 06-29-2024 End: 06-29-2024 ambulatory [facility] Work Phone: Start: 06-29-2024 End: 06-29-2024 Patient encounter procedure [facility] Work Phone: Start: 06-25-2024 Non-patient / Non-visit [facility] Work Phone: Start: 05-19-2024 Non-patient / Non-visit [facility] Work Phone: Start: 05-12-2024 End: 05-12-2024 ambulatory MARY LAU Not Available Start: 05-04-2024 End: 05-04-2024 Patient encounter procedure [facility] Work Phone: Start: 05-03-2024 Non-patient / Non-visit [facility] Work Phone: Start: 03-26-2024 End: 03-26-2024 ambulatory MARY LAU STEPANIC Not Available Start: 03-05-2024 End: 03-05-2024 ambulatory MARY LAU STEPANIC Not Available Start: 02-13-2024 End: 02-13-2024 ambulatory MARY LAU STEPANIC Not Available Start: 12-17-2023 End: 12-17-2023 ambulatory Roland Serrano Other [employer] Other Start: 12-17-2023 Telephone encounter Roland [facility] Start: 10-23-2023 End: 10-23-2023 ambulatory Roland Maggie Other [employer] Other Start: 10-23-2023 Telephone encounter Roland [facility]GT [facility] Start: 09-29-2023 End: 09-29-2023 ambulatory ROLAND SERRANO Facility:[facility] Start: 09-29-2023 End: 09-29-2023 Patient encounter procedure South Saba DO Work Phone: Colorectal Surgery Comment on above: Radiation proctitis (Primary Dx); Endometrial cancer (HCC) Start: 09-21-2023 End: 09-21-2023 ambulatory Roland Serrano Other [facility] Other Start: 09-21-2023 Telephone encounter Roland VOGT [facility] Start: 09-18-2023 End: 09-18-2023 ambulatory Roland Maggie Other [facility] Other Start: 09-18-2023 Telephone encounter Roland VOGT [facility] Start: 09-17-2023 End: 09-17-2023 ambulatory Roland Maggie Other [facility] Other Start: 09-17-2023 Telephone encounter Roland VOGT [facility] Start: 09-15-2023 End: 09-15-2023 ambulatory Roland Serrano Other [facility] Other Start: 09-15-2023 Telephone encounter Roland Ball [facility] Start: 09-14-2023 End: 09-14-2023 ambulatory Roland Ball Other [facility] Other Start: 09-14-2023 Telephone encounter Roland Ball [facility] Start: 09-12-2023 End: 09-12-2023 ambulatory Roland Maggie Other [facility] Other Start: 09-12-2023 Encounter for genera l adult medical examination without abnormal findings Roland Ball [facility] Start: 09-12-2023 Periodic preventive med est patient 40-64yrs Roland Serrano [facility] Start: 09-10-2023 End: 09-10-2023 ambulatory Roland Serrano Other [facility] Other Start: 09-10-2023 Telephone encounter Roland Ball [facility] Start: 09-03-2023 End: 09-03-2023 ambulatory Roland Serrano Other [facility] Other Start: 09-03-2023 Telephone encounter Roland Ball [facility] Start: 09-02-2023 Telephone encounter Roland Ball [facility] Start: 09-02-2023 End: 09-02-2023 ambulatory ROLAND E BALL [facility] Other Start: 09-01-2023 End: 09-01-2023 ambulatory Roland Ball Other [facility] Other Start: 09-01-2023 Telephone encounter Roland Ball [facility] Start: 08-29-2023 End: 08-29-2023 ambulatory ROLAND E BALL Facility:[facility] Start: 08-29-2023 End: 08-29-2023 Preprocedural examination done Elder Galan APRN.[employer] MIDDLEWARE DEVELOPER Work Phone: [facility] Work Phone: Start: 08-29-2023 End: 08-29-2023 ambulatory ROLAND SERRANO Facility:[facility] Start: 08-29-2023 Encounter for other preprocedural examination ELDER GALAN [facility] Start: 08-29-2023 End: 08-29-2023 Patient encounter procedure Pulm Fct Lab Main 8 [facility] Comment on above: Dyspnea and respirat [...] Only Heidi Hatfield MD Work Phone: Respiratory [place] Comment on above: ILD (interstitial lamont ng disease) (HCC) (Primary Dx) Start: 08-22-2023 ambulatory South rincon DO Work Phone: [facility] Start: 08-22-2023 Patient encounter procedure South Saba DO Work Phone: Colorectal Surgery Comment on above: Pre op appointment Start: 08-22-2023 End: 08-22-2023 Subsequent hospital visit by physician [facility] Work Phone: [facility] Radiology CT Scan Comment on above: Interstitial pulmona ry disease (HCC) [J84.9] Start: 08-04-2023 End: 08-04-2023 ambulatory Roland Serrano Other [facility] Other Start: 08-04-2023 Office outpatient vi sit 15 minutes Roland MONTAGUE [facility] Start: 07-22-2023 ambulatory South rincon DO Work Phone: Colorectal Surgery Start: 07-22-2023 Telephone encounter South Saba DO Work Phone: Colorectal Surgery Comment on above: Patient Update Start: 07-08-2023 End: 07-08-2023 ambulatory Roland Serrano Other [facility] Other Start: 07-08-2023 Telephone encounter Roland [facility]errano [facility] Start: 07-04-2023 ambulatory South Rendon estuardomadison DO Work Phone: Colorectal Surgery Start: 07-04-2023 End: 07-04-2023 Patient encounter procedure South Saba DO Work Phone: Colorectal Surgery Comment on above: Endometrial cancer ( HCC) (Primary Dx); Radiation proctitis Start: 06-27-2023 End: 06-27-2023 ambulatory Pulm Fct Lab Main 9 [facility] Comment on above: Spirometry Start: 06-27-2023 End: 06-27-2023 Patient encounter procedure Pulm Fct Lab Main 9 [facility] Comment on above: Interstitial pulmona ry disease (HCC) (Primary Dx); Other secondary pulmonary hypertension (HCC) Start: 05-26-2023 ambulatory Henry perales MD Work Phone: Gynecology Oncology Comment on above: Procitis Start: 05-23-2023 End: 05-23-2023 ambulatory Roland Serrano Other [facility] Other Start: 05-23-2023 Office outpatient vi sit 15 minutes Roland Serrano [facility] Start: 05-13-2023 End: 05-13-2023 ambulatory Roland Serrano Other [facility] Other Start: 05-13-2023 Telephone encounter Roland Serrano [facility] Start: 04-23-2023 End: 04-23-2023 ambulatory Roland Serrano Other [facility] Other Start: 04-23-2023 Patient encounter procedure Roland Serrano [facility] Start: 03-25-2023 End: 03-25-2023 ambulatory Roland Serrano Other [facility] Other Start: 03-25-2023 Telephone encounter Roland Serrano [facility] Start: 03-21-2023 Telephone encounter Roland Serrano [facility] Start: 03-21-2023 End: 03-22-[address] ROLAND SERRANO [facility] [employer] [facility] Other Start: 03-11-2023 End: 03-11-2023 ambulatory Roland Serrano Other [facility] Other Start: 03-11-2023 Telephone encounter Roland Serrano [facility] Start: 03-10-2023 End: 03-11-[address] ROLAND SERRANO [facility] [facility] Other Start: 03-10-2023 Telephone encounter Roland Serrano [facility] Start: 03-05-2023 End: 03-05-2023 Patient encounter procedure Cherelle Carol POSITION CLASSIFICATION MANAGER.[employer] F[employer]ION MIDDLEWARE DEVELOPER Work Phone: Gastroenterology Comment on above: Rectal bleeding (Vivi nicho Dx) Start: 01-24-2023 End: 01-24-2023 ambulatory Roland Serrano Other [facility] Other Start: 01-24-2023 Office outpatient vi sit 15 minutes Roland Serrano [facility] Start: 01-23-2023 End: 01-23-2023 ambulatory Roland Serrano Other [facility] Other Start: 01-23-2023 Telephone encounter Roland Serrano [facility] Start: 01-20-2023 Office outpatient vi sit 15 minutes Olya Gann [facility] Start: 01-20-2023 End: 01-20-[address] ROLAND SERRANO [facility] [employer] Other Start: 01-07-2023 End: 01-07-2023 ambulatory Roland Serrano Other [facility] Other Start: 01-07-2023 Telephone encounter Roland Serrano [facility] Start: 01-03-2023 End: 01-04-2023 ambulatory Henry aRmos MD Work Phone: Gynecology Oncology Comment on above: Recurrent carcinoma of endometrium (HCC) (Primary Dx); Radiation proctitis; Blood per rectum Start: 01-03-2023 End: 01-04-2023 Patient encounter procedure Henry Ramos MD Work Phone: [facility] Start: 12-25-2022 Telephone encounter Aretha [...] examination without abnormal findings DR ROLAND SERRANO [facility] Start: 09-04-2022 End: 09-05-[address] ROLAND SERRANO Facility:[facility] Start: 09-04-2022 End: 09-05-2022 Encounter for general adult medical examination without abnormal findings DR ROLAND SERRANO Facility:[facility] Start: 08-29-2022 Adult health examination Roland Serrano Other [facility] Other Start: 08-29-2022 Encounter for genera l adult medical examination without abnormal findings Roland Serrano Other [facility] Other Start: 08-29-2022 Pre-procedure evaluation check Roland Serrano Other [facility] Other Start: 08-07-2022 End: 09-21-2022 ambulatory Henry Ramos MD Work Phone: Gynecology Oncology Comment on above: Recurrent carcinoma of endometrium (HCC) (Primary Dx); Radiation proctitis; Foreshortening of vagina; Endometrial cancer (HCC); Vaginal atrophy; Rectal bleeding Start: 08-07-2022 End: 08-07-2022 Patient encounter procedure Henry Ramos MD Work Phone: [facility] Start: 06-12-2022 End: 06-12-2022 ambulatory SALOMON JACOME Facility: Start: 03-13-2022 End: 03-13-2022 ambulatory Henry Ramos MD Work Phone: Gynecology Oncology Comment on above: Recurrent carcinoma of endometrium (HCC) (Primary Dx); Vaginal atrophy; Foreshortening of vagina Start: 03-13-2022 End: 03-13-2022 Patient encounter procedure Henry Ramos MD Work Phone: [facility] Start: 12-13-2021 End: 12-13-2021 Subsequent hospital visit by physician Arrival Time Radiology Work Phone: Radiology [facility] Comment on above: Malignant neoplasm o f endometrium (HCC) [C54.1] Start: 11-21-2021 End: 11-22-2021 Emergency department patient visit [facility] Start: 07-07-2021 End: 07-07-2021 Emergency department patient visit [facility] Start: 07-07-2021 End: 07-07-2021 Emergency department patient visit Mayra Michel MD Work Phone: [facility] ED Comment on above: Dizziness (Primary D x); Dehydration Procedures Date Procedure Procedure Detail Performing Clinician Start: 11-01-2024 Radex hip unilateral with pelvis 2-3 views Dyan SOSA Work Phone: Start: 08-05-2024 Iadna human papillom avirus high-risk types Ernesto Chacko APRN.CNP Work Phone: Start: 08-05-2024 Unlisted surgical pa thology procedure Ernesto Chacko APRN.[employer] MIDDLEWARE DEVELOPER Work Phone: Start: 08-05-2024 Microscopic observat ion [Identifier] in Cervix by Cyto stain Leigh Valenzuela APRN-[employer] MIDDLEWARE DEVELOPER Work Phone: Start: 05-04-2024 Quick Strep (POC) Start: 09-29-2023 Follow-up visit Follow Up [facility] Start: 09-02-2023 Antibody screen MELODY MENA Comment on above: Order Comment: Speci men Type: BLOOD SPECIMENOrdering Facility: [facility] Address: [address] [place] [address] Performed By: #### T SCR ####CC MAIN BLOOD BANKCLIA [id number] [address] Start: 08-29-2023 Antibody screen MELODY MENA Comment on above: Order Comment: Speci men Type: BLOOD SPECIMENOrdering Facility: [facility] Address: [address] [place] [address] Performed By: #### T SCR ####CC MAIN BLOOD BANKCLIA [id number] [address] Start: 08-29-2023 Spmtry w/vc expirato ry bernie [...] w /collj spec when pfrmd Ernesto Chacko APRN.[employer] MIDDLEWARE DEVELOPER Work Phone: Start: 09-26-2022 Colonoscopy Leila Alamo MD Work Phone: Start: 12-13-2021 Ct abdomen & pelvis w/contrast material Ernesto Ginna POSITION CLASSIFICATION MANAGER.[employer] MIDDLE[employer] DEVELOPER Work Phone: Start: 12-13-2021 Ct thorax w/contrast material Ernesto Chacko POSITION CLASSIFICATION MANAGER.[employer] MIDDLEWARE DEVELOPER Work Phone: Start: 11-02-2021 Antibody screen Comment on above: Order Comment: Trans fuse now? N Result Comment: PERF ORMED BY: [facility] [address] [place] [address] PATHOLOGIST JUNIOR SOFTWARE DEVELOPER CLAIRE ANTHONY M.D. Start: 10-15-2021 Antibody screen Comment on above: Order Comment: Date of Surgery: [id number] # of PRBC units on hold?: 2 Result Comment: PERF ORMED BY: [facility] [address] [place] [address] PATHOLOGIST JUNIOR SOFTWARE DEVELOPER CLAIRE ANTHONY M.D. Start: 09-20-2021 Adult depression scr eening assessment Henry Ramos MD Work Phone: Start: 08-20-2021 Antibody screen Comment on above: Order Comment: Date of Surgery: [id number] # of PRBC units on hold?: 2 Result Comment: PERF ORMED BY: [facility] [address] [place] [address] PATHOLOGIST JUNIOR SOFTWARE DEVELOPER CLAIRE ANTHONY M.D. Start: 07-07-2021 Urinalysis microscopic only Mayra Michel MD Work Phone: Start: 07-07-2021 Urnls dip stick/tabl et rgnt auto w/o microscopy Mayra Michel MD Work Phone: Start: 07-07-2021 Comprehensive metabo lic panel Mayra Michel MD Work Phone: Start: 10-18-2019 Mammography Leigh Fe lter POSITION CLASSIFICATION MANAGER-[employer] MIDDLEWARE DEVELOPER Work Phone: Start: 06-11-2019 General examination of patient Roland Serrano Other Start: 06-11-2019 Screening for malign ant neoplasm of colon Roland Serrano Other Start: 05-05-2019 Microscopic observat ion [Identifier] in Cervix by Cyto stain Leigh Valenzuela APRN-[employer] MIDDLEWARE DEVELOPER Work Phone: Screening for malign ant neoplasm of breast Roland Serrano Other Plan of Treatment Date Care Activity Detail Author Start: 2035 RSV High Risk: (Elde rly (60+) or Population) (1 - 1-dose 75+ series) RSV High Risk: (Elderly (60+) or Population) (1 - 1-dose 75+ series) [facility] Start: 09-26-2032 Screening for malign ant neoplasm of colon [facility] Start: 08-05-2029 Screening for malign ant neoplasm of cervix [facility] Start: 08-05-2027 Screening for malign ant neoplasm of cervix Pap Smear [facility] Start: 08-29-2026 [facility] Start: 07-04-2026 DIABETES SCREEN DIABETES SCREEN [facility] Start: 07-04-2026 [facility] Start: 10-06-2025 End: 10-06-2025 Patient encounter procedure 10/06/2025 11:05 AM EST Office Visit [facility] D[facility] [address] [place] [address] Leigh Valenzuela APRN-[employer]AC[employer] FUSION MIDDLEWARE DEVELOPER [address] [place] [address] [facility] Start: 08-05-2025 Screening for malign ant neoplasm of cervix Cervical Cancer Screening [facility] Start: 12-29-2024 End: 12-29-2024 Patient encounter procedure 12/29/2024 10:00 AM EST Office Visit [facility]TH[facility] [address] [place] [address] Jr. Mary Gatica, DO [address] [place] [address] [facility] Start: 12-10-2024 End: 12-10-2025 EMG & nerve conduction EMG & nerve conduction Neurology Routine Lumbar radiculopathy Expected: 12/10/2024 (Approximate), Expires: 12/10/2025 [facility] Work Phone: Comment on above: Expected: 12/10/2024 (Approximate), Expires: 12/10/2025 Start: 12-10-2024 End: 12-10-2025 XR Hip Views [facility] Service Area Work Phone: Comment on above: Expected: 12/10/2024 , Expires: 12/10/2025 Start: 12-02-2024 End: 12-02-2025 EMG AND NERVE CONDUCTION STUDY EMG AND NERVE CONDUCTION STUDY Neurology Routine Right leg paresthesias Expected: 12/02/2024 (Approximate), Expires: 12/02/2025 [facility] Work Phone: Comment on above: Expected: 12/02/2024 (Approximate), Expires: 12/02/2025 Start: 12-02-2024 End: 12-02-2024 Patient encounter procedure 12/02/2024 10:30 AM EST Office Visit [facility] [address] [facility] [address] [place] [address] Dyan Robb PA [address] [facility] [address] [place] [address] [facility] Start: 11-25-2024 End: 11-25-2024 Follow-up encounter 11/25/2024 1:50 PM EST Visit (SP) Office Gynecology Oncology [address] [place] [address] Henry Ramos MD [address] [place] [address] 4 MONTH FOLLOW UP Gynecology Oncology Comment on above: 4 MONTH FOLLOW UP Start: 11-03-2024 End: 11-03-2024 Patient encounter procedure 11/03/2024 1:00 PM EST Office Visit [facility] [address] [place] [address] Dyan Robb PA [address] [place] [address] [facility] Start: 11-01-2024 End: 11-01-2025 MR Lumbar spine WO contrast MR lumbar spine wo contrast Imaging Routine Lumbar radiculopathy, right Expected: 11/01/2024 (Approximate), Expires: 11/01/2025 [facility] Comment on above: Expected: 11/01/2024 (Approximate), Expires: 11/01/2025 Start: 11-01-2024 End: 11-01-2024 Patient encounter procedure [facility] Comment on above: History of right hip replacement (Primary Dx); Acute pain of right hip Start: 09-09-2024 End: 09-09-2024 Follow-up encounter Gynecology Oncology Comment on above: 1 Year/Annual Follow Up follow up; needs pap Start: 08-19-2024 End: 08-19-2024 ambulatory 08/19/2024 3:00 PM EDT [facility] Gynecology Oncology [address] [place] [address] Melody Mena APRN.[employer]AC[employer] FUSION MIDDLEWARE DEVELOPER [address] [place] [address] TELEVISIT Gynecology Oncology Comment on above: TELEVISIT Start: 08-05-2024 End: 08-05-2024 Follow-up encounter 08/05/2024 11:10 AM EDT Visit (SP) Office Gynecology Oncology [address] [place] [address] Henry Ramos MD [address] [place] [address] Follow up Gynecology Oncology Comment on above: Follow up Start: 07-18-2024 Covid-19 Vaccine () Covid-19 Vaccine () [facility] Start: 07-18-2024 Covid-19 Vaccine ( season) Covid-19 Vaccine () [facility] Start: 07-18-2024 Influenza vaccination Influenza Vacc ine (#1) [facility] Start: 09-26-2023 Colonoscopy COLONOSCOPY [facility] Start: 09-26-2023 COLORECTAL CANCER SCREENING COLORECTAL CANCER SCREENING [facility] Start: 09-26-2023 Screening for malign ant neoplasm of colon [facility] Start: 08-26-2023 End: 09-24-2024 SPIROMETRY BASELINE ONLY SPIROMETRY BASELINE ONLY PFT Routine ILD (interstitial lung disease) (HCC) Expected: 08/26/2023, Expires: 09/24/2024 [facility] Work Phone: Comment on above: Expected: 08/26/2023 , Expires: 09/24/2024 Start: 07-22-2023 End: 09-21-2023 CBC W Auto Differential panel - Blood CBC + DIFF Lab Routine Radiation proctitis Expected: 07/22/2023, Expires: 09/21/2023 [facility] Work Phone: Comment on above: Expected: 07/22/2023 , Expires: 09/21/2023 Start: 07-22-2023 End: 09-21-2023 Comprehensive metabolic 2000 panel - Serum or Plasma COMP METABOLIC PANEL Lab Routine Radiation proctitis Expected: 07/22/2023 (Approximate), Expires: 09/21/2023 [facility] Work Phone: Comment on above: Expected: 07/22/2023 (Approximate), Expires: 09/21/2023 Start: 07-18-2023 Covid-19 Vaccine ( season) Covid-19 Vaccine () [facility] Start: 07-18-2023 Influenza vaccination C [facility] Start: 11-17-2022 DEPRESSION ASSESSMENT DEPRESSION ASS ESSMENT [facility] Start: 09-20-2022 Adult depression scr eening assessment DEPRESSION SCREENING [facility] Start: 08-12-2022 DIABETES SCREEN DIABETES SCREEN [facility] Start: 08-07-2022 End: 10-07-2022 CBC W Auto Differential panel - Blood CBC + DIFF Lab Routine Rectal bleeding Expected: 08/07/2022, Expires: 10/07/2022 [facility] Work Phone: Comment on above: Expected: 08/07/2022 , Expires: 10/07/2022 Start: 07-18-2022 Influenza vaccination C [facility] Start: 05-05-2022 Screening for malign ant neoplasm of cervix [facility] Start: 11-27-2021 COVID-19 VACCINE (3 - Booster for Moderna series) COVID-19 VACCINE (3 - Booster for Moderna series) [facility] Start: 11-17-2021 DEPRESSION ASSESSMENT DEPRESSION ASS ESSMENT [facility] Start: 08-22-2021 COVID-19 VACCINE (3 - Booster for Moderna series) COVID-19 VACCINE (3 - Booster for Moderna series) [facility] Start: 08-22-2021 COVID-19 VACCINE (3 - Moderna series) COVID-19 VACCINE (3 - Moderna series) [facility] Start: 07-18-2021 Influenza vaccination Flu vaccine (# 1) [employer] Work Phone: Start: 10-18-2020 Screening for malign ant neoplasm of breast [facility] Start: 2020 RSV Vaccine (1 - 1-d ose 60+ series) RSV Vaccine (1 - 1-dose 60+ series) [facility] Start: 2020 RSV Vaccine (1 - Ris k 60-74 years 1-dose series) RSV Vaccine (1 - Risk 60-74 years 1-dose series) [facility] Start: 2010 Pneumococcal vaccination Pneum ococcal Vaccine (1 of 1 - PCV) [facility] Start: 2010 SHINGRIX VACCINE (1 of 2) WESTON GRIX VACCINE (1 of 2) [facility] Start: 2010 Zoster Vaccines (1 of 2) Zoste r Vaccines (1 of 2) [facility] Start: 2005 COLOGUARD (FIT-DNA) COLOGUARD (FIT-D NA) [facility] Start: 2005 Colonoscopy COLONOSCOPY [facility] Start: 2005 COLORECTAL CANCER SCREENING COLORECTAL CANCER SCREENING [facility] Start: [address] [facility] Start: 2005 FECAL OCCULT BLOOD FECAL OCCULT BLOO D [facility] Start: 2005 Lipid 1996 panel - S marcela or Plasma Lipid Screening [facility] Start: 2005 Lipid panel Lipid Screening [facility] Start: 2005 LIPID SCREEN LIPID SCREEN [facility] Start: 2005 Screening for malign ant neoplasm of colon [facility] Start: 2005 SIGMOIDOSCOPY SIGMOIDOSCOPY [facility] Start: 2000 Mammography [facility] Start: 2000 Screening for malign ant neoplasm of breast Mammogram Screening [facility] Start: 1990 HPV TESTING HPV TESTING [facility] Start: 1990 Screening for malign ant neoplasm of cervix HPV/Cotest [facility] Start: 1982 DTaP/Tdap/Td Vaccine s (1 - Tdap) DTaP/Tdap/Td Vaccines (1 - Tdap) [facility] Start: 1981 PAP TESTING PAP TESTING [facility] Start: 1981 Screening for malign ant neoplasm of cervix [facility] Start: 1979 Urine microalbumin profile [facility] Start: 1978 ANNUAL PCP TEAM SECOND MATE SHAILA DISEASE VISIT ANNUAL PCP TEAM CHRONIC DISEASE VISIT [facility] Start: 1978 Anxiety Screening Anxiety Screening [facility] Start: 1978 BP CONTROLLED (<130/80) BP CONTROLLE D (<130/80) [facility] Start: 1978 Depression Screening Depression Scre ening [facility] Start: 1978 HEPATITIS C SCREENING HEPATITIS C [facility] Start: 1978 Hepatitis C screening Hepatitis C [facility] Start: 1978 HIV SCREENING HIV SCREENING [facility] Start: 1978 HIV screening HIV Screening [facility] Start: 1961 MMR Vaccines (1 of 1 - Standard series) MMR Vaccines (1 of 1 - Standard series) [facility] Start: 1960 HIV screening HIV Screening [facility] Start: 1960 Lipid panel Lipid Panel [facility] Start: 1960 Screening for malign ant neoplasm of colon [facility] Start: 1960 Yearly Adult Physical Yearly Adult P [facility] End: 03-05-2024 Colonoscopy COLONOSCOPY (THERAPEUTIC) Endoscopy Routine Rectal bleeding 1 Occurrences starting 03/05/2023 until 03/05/2024 [facility] Work Phone: Comment on above: 1 Occurrences starti ng 03/05/2023 until 03/05/2024 End: 07-26-2024 Ct thorax w/o contrast material CT CHEST WO IVCON Radiology Routine Interstitial pulmonary disease (HCC) 1 Occurrences starting 06/27/2023 until 07/26/2024 [facility] Work Phone: Comment on above: 1 Occurrences starti ng 06/27/2023 until 07/26/2024 End: 07-07-2021 Culture, Urine Culture, Urine Microbiology Routine Once for 1 Occurrences starting 07/07/2021 until 07/07/2021 [employer] Work Phone: Comment on above: Once for 1 Occurrenc es starting 07/07/2021 until 07/07/2021 Culture, Urine Culture, Urine Microbiology Routine 07/07/2021 2:00 PM EDT [employer] Work Phone: End: 06-27-2024 Echocardiography ECHO Cardiology Routine Other secondary pulmonary hypertension (HCC) 1 Occurrences starting 06/27/2023 until 06/27/2024 [facility] Work Phone: Comment on above: 1 Occurrences starti ng 06/27/2023 until 06/27/2024 H&P for surgery H&P FOR SURGERY Procedures Routine Radiation proctitis Ordered: 07/22/2023 [facility] Work Phone: Comment on above: Ordered: 07/22/2023 End: 07-26-2024 LUNG DIFFUSION CAPACITY (DLCO) LUNG DIFFUSION CAPACITY (DLCO) PFT Routine Interstitial pulmonary disease (HCC) 1 Occurrences starting 06/27/2023 until 07/26/2024 [facility] Work Phone: Comment on above: 1 Occurrences starti ng 06/27/2023 until 07/26/2024 LUNG DIFFUSION CAPAC ITY (DLCO) LUNG DIFFUSION CAPACITY (DLCO) PFT Routine Interstitial pulmonary disease (HCC) 08/29/2023 9:27 AM EDT [facility] Work Phone: End: 07-26-2024 LUNG VOLUMES LUNG VOLUMES PFT Routine Interstitial pulmonary disease (HCC) 1 Occurrences starting 06/27/2023 until 07/26/2024 [facility] Work Phone: Comment on above: 1 Occurrences starti ng 06/27/2023 until 07/26/2024 PAP TEST PAP TEST Lab Rou teri Vaginal bleeding History of endometrial cancer Ordered: 08/05/2024 [facility] Work Phone: Comment on above: Ordered: 08/05/2024 End: 07-26-2024 Pulmonary ventilation & perfusion imaging NM LUNG VENT / PERF VQ Radiology Routine Other secondary pulmonary hypertension (HCC) 1 Occurrences starting 06/27/2023 until 07/26/2024 [facility] Work Phone: Comment on above: 1 Occurrences starti ng 06/27/2023 until 07/26/2024 REFER FOR ADMIT INTERVIEW REFER FOR ADMIT INTERVIEW Procedures Routine Radiation proctitis Ordered: 07/22/2023 [facility] Work Phone: Comment on above: Ordered: 07/22/2023 End: 08-07-2023 Screening colonoscopy COLONOSCOPY SCREENING Endoscopy Routine Rectal bleeding 1 Occurrences starting 08/07/2022 until 08/07/2023 [facility] Work Phone: Comment on above: 1 Occurrences starti ng 08/07/2022 until 08/07/2023 End: 09-26-2022 Screening colonoscopy COLONOSCOPY SCREENING Endoscopy Routine Rectal bleeding 1 Occurrences starting 09/26/2022 until 09/26/2022 [facility] Work Phone: Comment on above: 1 Occurrences starti ng 09/26/2022 until 09/26/2022 SPIROMETRY BASELINE ONLY SPIROME TRY BASELINE ONLY PFT Routine ILD (interstitial lung disease) (HCC) 08/29/2023 9:27 AM EDT [facility] Work Phone: SPIROMETRY WITH DILA TOR IF OBSTRUCTED SPIROMETRY WITH DILATOR IF OBSTRUCTED PFT Routine Dyspnea, unspecified type 06/27/2023 10:15 AM EDT [facility] Work Phone: XR Lumbar spine View s W flexion and W extension XR lumbar spine 4+ views w flexion extension Imaging Routine Lumbar radiculopathy, right Ordered: 11/01/2024 [facility] Work Phone: Comment on above: Ordered: 11/01/2024 [facility] Immunizations Immunization Date Immunization Notes Care Provider Fa [facility] 06-27-2021 COVID-19 vaccine, fu ll dose (MODERNA) Henry Ramos MD Work Phone: [facility] 11-21-2020 COVID-19 vaccine, fu ll dose (MODERNA) Henry Ramos MD Work Phone: [facility] Payers Date Payer Category Payer [facility] [id number] 2022 Erich rodríguez [facility] Care [facility] [id number] 2020 Unknown MMO MMO [employer]US [id number] 2020-Present [phone] [address] [place] [address] PPO [id number] 2020 Unknown [id number] [id number]. [id number] 1960 Unknown [id number] 2.16.840.1.952054.3.579.2. 174 1960 Unknown [id number] 2.16.840.1.281386.3.579.2. 174 1960 Unknown [id number] 2.16.840.1.138933.3.579.2. 593 1960 Unknown [id number] 2.16.840.1.774377.3.579.2. 593 1960 Unknown [id number] 2.16.840.1.698003.3.579.2. 593 1960 Unknown [id number] 2.16.840.1.140308.3.579.2. 593 1960 Unknown [id number] 2.16.840.1.608064.3.579.2. 593 1960 Unknown [id number] 2.16.840.1.274796.3.579.2. 593 1960 Unknown [id number] 2.16.840.1.661977.3.579.2. 593 1960 Unknown [id number] 2.16.840.1.273206.3.579.2. 9 1960 Unknown [id number] 2.16.840.1.911563.3.579.2. 1258 1960 Unknown [id number] 2.16.840.1.236560.3.579.2. 9 1960 Unknown [id number] 2.16.840.1.751023.3.579.2. 1258 1960 Unknown [id number] 2.16.840.1.472649.3.579.2. 9 1960 Unknown [id number] 2.16.840.1.025468.3.579.2. 1258 1960 Unknown [id number] 2.16.840.1.439205.3.579.2. 9 1960 Unknown [id number] 2.16.840.1.666423.3.579.2. 1258 1960 Unknown [id number] 2.16.840.1.816570.3.579.2. 9 1960 Unknown [id number] 2.16.840.1.336105.3.579.2. 9 1960 Unknown [id number] 2.16.840.1.759070.3.579.2. 1246 1959 [employer] [id number] 2.16.840.1.408277.19 1959 Unknown [id number]. [id number] Self-pay Self Pay [id number] Social History Date Type Detail Facility Start: 07-07-2021 End: 12-10-2024 Tobacco smoking status NHIS Never smoker [facility] Start: 07-07-2021 End: 12-10-2024 Tobacco use and exposure Never used [facility] Start: 1960 Sex Assigned At Not on file M [employer] Work Phone: Start: 10-29-2021 End: 12-10-2024 Exposure to SARS-CoV-2 (event) Not sure [facility] Start: 03-13-2022 End: 12-02-2024 Alcohol intake Current drinker of alcohol (finding) [facility] Start: 07-28-2019 History SDOH Alcohol Comment 3 drinks per month [facility] Start: 03-05-2023 End: 12-10-2024 Sex Assigned At [facility] Start: 03-05-2023 End: 12-10-2024 History of Social function [facility] Adult Depression Screening Assessment 0 [facility] Start: 1960 Sex Assigned At Female F [facility] How often to you hav e a drink containing alcohol? 2-4 times a month [facility] How many standard drinks containing alcohol do you have on a typical day? 1 or 2 [facility] How often do you hav e 6 or more drinks on 1 occasion? Never [facility] Start: 09-29-2023 Gender identity Identifies as female gender (finding) [facility] Start: 11-26-2024 Sex Female (finding) [facility] Medical Equipment Procedure Code Equipment Code Equipment Origin al Text Equipment Identifier Dates Minimally invasive revision of total replacement of hip Orthopaedic bone screw, non-bioabsorbable, sterile [id number] FDA Start: 11-02-2021 Minimally invasive revision of total replacement of hip Acetabular shell ()[id number] FDA Start: 11-02-2021 Minimally invasive revision of total replacement of hip Non-constrained polyethylene acetabular liner [id number] FDA Start: 11-02-2021 Minimally invasive revision of total replacement of hip Acetabulum prosthesis hole plug [id number] FDA Start: 11-02-2021 Minimally invasive revision of total replacement of hip Ceramic femoral head prosthesis ()[id number] FDA Start: 11-02-2021 Minimally invasive revision of total replacement of hip Coated hip femur prosthesis, modular ()[id number] FDA Start: 11-02-2021 Arthroplasty, thumb Tendon/ligam ent bone anchor, non-bioabsorbable ()[id number] FDA Start: 09-14-2020 Clinical Notes 12-13-2021 to 12-10-2024 Louis Sol PA-C - 12/10/2024 10:30 AM IAN Garcia - 12/02/2024 10:30 AM IAN Garcia - 11/01/2024 10:30 AM Anali Valenzuela APRN- [facility] - 10/07/2024 11:05 AM EST Note Date & Type Note Facility 12-10-2024 History of Present illness Narrative Chief Complaint Patient presents with Right Hip - New Patient Visit, Pain RIGHT HIP X-RAYS TODAY TED Hall is a 64-year-old female presenting today as a new patient for second opinion initial evaluation of her right hip. Patient underwent a right total hip arthroplasty on 11/02/[address] Gatica. Patient states that she did make improvements postoperatively however never felt like she reached 100%. Has had limitations with range of motion and strength ever since. Does feel like she has regressed even more so over the last few months. Has noticed significant limitations in her daily life. Complains of dull aching pain throughout the entirety of her hip going down into her leg. Does endorse generalized weakness of her right leg. Does also endorse intermittent numbness and tingling extending down her leg into her foot and toes. Patient is growing increasingly more frustrated at this persistent hip and leg pain as it is impeding on activities that she wishes to return doing including walking and pickleball. Has had extensive workup postoperatively including lumbar spine x-ray and MRI with negative significant findings. Has also had a bone scan to evaluate for hardware loosening which was negative. Last visit with her previous orthopedics they did discuss options including a cortisone injection versus referral to pain management versus living with these limitations. No past medical history on file. Past Surgical History: Procedure Laterality Date TOTAL HIP ARTHROPLASTY Right 10/2021 No Known Allergies Physical exam General: Alert and oriented to place, person, and time. No acute distress and breathing comfortably; pleasant and cooperative with the examination. HEENT: Head is normocephalic and atraumatic. Neck: Supple, no visible swelling. Cardiovascular: Good perfusion to the affected extremity. Lungs: No audible wheezing or labored breathing. Abdomen: Nondistended HEME/Lymph : No visible abnormalities bilateral lower extremity Extremity: Right hip: No significant swelling of the thigh Well-healed incision Tenderness to palpation: Diffusely about lumbar spine, lateral hip, posterior gluteal region, lateral thigh Tolerates PROM and gentle logroll of hip with no significant discomfort or pain. Significant hip flexion weakness about the right lower extremity in comparison to the left + Plantar/dorsiflexion Negative Augusto test Decreased strength with abduction Decreased strength with adduction Nonpainful with passive hip flexion and active Nonpainful with passive internal/external rotation Neurovascularly intact Diagnostics: X-rays collected in clinic today: Status post right total hip arthroplasty acetabular component is well-placed no apparent about the acetabular component. Well-placed hip prosthesis no fracture appreciated, scant lucency about the proximal stump stem is well-seated and well-fixed distally. Procedures Assessment: 64-year-old female with persistent right hip pain status post total hip arthroplasty in 2020 concerns for lumbar radiculopathy Treatment plan: Constellation of findings discussed with Lj today. She primarily complains of pain about her hip as well as pain that does shoot all the way down into her leg which makes me do think that there is a component stemming from neuropathic etiology. Reportedly did have an MRI done which was overall unremarkable. I did recommend to proceed with an EMG for evaluation of compressive neuropathy. I did review x-rays today which shows appropriate placement of total hip arthroplasty stem does appear to be well-fixed. She has had a long workup to help elucidate where pain is emanating from on exam she does have significant hip flexion weakness about the right hip I do think an EMG would help us further elucidate this etiology. Reported bone scans were negative for loosening. She is going to bring her MRI results and disc and collecting EMG and will follow-up with the orthopedic surgery spine team to see if they have any recommendations regarding current pain. She does state that hip replacement surgery did help her with a lot of the pain that she is having preoperatively. If she is simply just sitting in a chair was complaining of shooting pains that may already down the leg. Discussed activities to avoid Requiring reports reviewed to include bone scan, most recent MRI report lumbar spine received All of the patient's questions were answered. documented in this encounter [facility] Work Phone: 12-02-2024 History of Present illness Narrative Images from the original note were not included. HISTORY OF PRESENT ILLNESS: EST PT Isabel Waddell is an 64 y.o. @ female. (EST PT) (R) SHAAN 11/02/21 (~3 YRS, 1 MONTH) PT HERE FOR MRI LUMBAR RESULTS XRAY LUMBAR 11/01/24 @ [facility] XRAYS RT HIP 11/01/24 IN [facility] MRI L-SPINE W/O 12/01/24 @[facility] BONE SCAN 03/19/24 @ [facility] S/P MDP 02/13/24 FINISHED PHYSICAL THERAPY ; POST-OP CONTINUES TO HAVE CONSTANT ACHINESS ; DIFFUSE - ; STATES PAIN LIMITS HER ACTIVITIES. NOTES LIMITED ROM - DENIES ANY CLICKING / LOCKING / GRINDING. SOME WEAKNESS WITH ACTIVITY / PROLONGED AMBULATION. TAKING ALEVE PRN ; SOME RELIEF. ALLERGIES: No Known Allergies HOME MEDICATIONS: No current outpatient medications PHYSICAL EXAM: Hip Musculoskeletal Exam Gait Limp: right Inspection Leg length disparity: no discrepancy Right Erythema: none Ecchymosis: none Edema: none Deformity: none Previous incision: anterolateral Incision: well-healed Palpation Right Right hip palpation is normal. Increased warmth: none Tenderness: none (pain right SI joint on palpation, pt notes aching all the way down leg ) Range of Motion Right Right hip range of motion is within functional limits. Active ROM: normal. Passive ROM: normal. Active extension: 30. Passive extension: 30. Active flexion: 60. Passive flexion: 100. Active internal rotation: 35. Passive internal rotation: 35. Active external rotation: 40. Passive external rotation: 40. Active adduction: 25. Passive adduction: 25. Active abduction: 30. Passive abduction: 40. Strength Right Right hip strength is normal. Extension: 4+/5. Flexion: 3/5. Internal rotation: 5/5. External rotation: 5/5. Adduction: 4-/5. Abduction: 4-/5. Neurovascular Right Right hip neurovascular exam is normal. Pulses - PT: normal Posterior tibial: 2+ Special Tests Right Log roll test: negative Special tests additional comments: + SLR for radiculopathy General Constitutional: appears stated age Labored breathing: no Psychiatric: normal mood and affect Neurological: alert and oriented x3 Skin: intact Lymphadenopathy: none Vitals: There is no height or weight on file to calculate BMI. Tobacco Use: Low Risk (12/02/2024) Patient History Smoking Tobacco Use: Never Smokeless Tobacco Use: Never Passive Exposure: Not on file Alcohol Use: Not At Risk (09/20/2023) AUDIT-C Frequency of Alcohol Consumption: 2-4 times a month Average Number of Drinks: 1 or 2 Frequency of Binge Drinking: Never IMAGING: Procedures No orders of the defined types were placed in this encounter. ASSESSMENT: ICD-10-CM 1. Acute pain of right hip M25.551 2. History of right hip replacement Z96.641 3. Lumbar radiculopathy, right M54.16 4. Sacroiliac joint pain M53.3 5. Right leg weakness R29.898 6. Right leg paresthesias R20.2 F/U Dr. Gatica s/p MRI Lumbar spine/ EMG / SI joint injection- pain management rita to discuss need for possible: Consider far lateral disc pathology with benign MRI.. Deconditioning from Hip pain consider repeat bone scan/ labs. Vs Physical therapy Surgical and non surgical tx options discussed with conservative measures reviewed. Recommend ICE/ ELEVATION, continued activity modification in interim. Pt would consider surgical intervention to possibly improve symptoms. Assessment & Plan 1. Right leg pain and weakness. She reports progressive symptoms affecting her quality of life, including notable weakness with hip flexion and quad and hamstring flexion and extension. The left leg appears normal on muscle stress testing. She experiences diffuse aching in the entire leg, with distal pulses present. A positive straight leg raise test was noted, but an MRI study showed no focal radiculopathy, ruling out far lateral disc herniation. She also reports paresthesias in the right leg. She does not report any other neurologic symptoms with bowel, bladder, eye, or skin paresthesias in other dermatomes. Her MRI and back x-rays were reviewed at the bedside. She does not report any fevers or chills. A prior bone scan did not show evidence of prosthetic loosening, but this could be revisited if the EMG test is negative. She is pending evaluation with Dr. White as her symptoms are complex, involving the entire leg and major muscle groups. An EMG test is recommended given the length of symptoms and progressive muscle weakness. She has pain in the right SI joint and is agreeable to try an SI joint injection with [facility]. Questions answered in laymen terms at the bedside. The diagnosis, home exercise plan and any ongoing restrictions/ recommendations reviewed. If unable to be reached in office, I recommend evaluation at nearest Emergency Room if any symptoms worsened or new symptoms develop for requiring urgent evaluation. documented in this encounter [facility] 11-01-2024 History of Present illness Narrative Images from the original note were not included. HISTORY OF PRESENT ILLNESS: EST PT Isabel Waddell is an 64 y.o. @ female. (EST PT) HERE FOR YEARLY CHECK OF (R) SHAAN 11/02/21 (~3 YRS) XRAYS DONE TODAY, 11/01/24 IN EPIC BONE SCAN 03/19/24 @ [facility] S/P MDP 02/13/24 FINISHED PHYSICAL THERAPY ; [...] Future Standing Expiration Date: 11/01/2025 Scheduling Instructions: [facility] ; PLEASE CALL PT TO SCHEDULE (XRAYS BEING DONE TODAY, 11/01/24 @ [facility]) Order Specific Question: Reason for exam: Answer: [...] urgent evaluation. documented in this encounter [facility] 10-07-2024 History of Present illness Narrative Skin [...] Examined Right arm Examined Patient wearing nail palauan, Denies dark streaks on toenails Left arm [...] 1 year documented in this encounter [facility] 08-19-2024 Note HNO ID: [id number] Author: MELODY MENA APRN.CNP Service: ? Author Type: Nurse Practitioner Type: Progress Notes Filed: 08/21/2024 11:16 Note Text: Attempted to call patient, no answer, message left to call back. Phone message also sent by Ernesto Chacko CNP. Will send [email or web address] message. Melody Mena APRN.CNP [facility] 08-19-2024 History of Present illness Narrative Attempted to call patient, no answer, message left to call back. Phone message also sent by Ernesto Chacko CNP. Will send [email or web address] message. Melody Mena APRN.CNP documented in this encounter [facility] 08-18-2024 Telephone encounter Note Message left for patient. Pap test inconclusive. She should call the office if she has persistent bleeding. MRI if symptoms persist. Ernesto Chacko APRN.CNP [facility] Work Phone: 08-18-2024 Miscellaneous Notes Message left for patient. Pap test inconclusive. She should call the office if she has persistent bleeding. MRI if symptoms persist. Ernesto Chacko APRN.CNP documented in this encounter [facility] 08-16-2024 Note Unsatisfactory for e valuation. Limited cellularity. [facility] Work Phone: 08-05-2024 History of Present illness Narrative Gynecologic Oncology [facility] Follow up visit Date of service: 08/05/2024 PROBLEM/CC: Isabel Waddell presents for endometrial cancer surveillance visit with spotting. HPI: Ms. Waddell is a 64 year old female with [...] differentiation, FIGO grade 2. Neg LVSI, 13% CT pT1a (IA): Tumor limited to endometrium or invades less than 1/2 of the myometrium 05/25/2021 Vaginal biopsy Vagina, biopsy - Consistent with endometrioid adenocarcinoma (see comment). GZ/ka 05/28/2021 COMMENT The tumor cells are diffusely and strongly positive for immunohistochemical stain for Enterprise 8, supporting the above diagnosis. The patient [...] by mouth daily at bedtime. ^Disp: ^Rfl: [id number]-FISH OIL-L.CASEI ORAL^Take by mouth once daily.^Disp: ^Rfl: [...] taking: Reported on 06/27/2023) INTERVAL HISTORY: Isabel Waddell reports that she feels good. She presents [...] discussed with the Patient or Patient's Authorized 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 Coin Collector. As applicable, any other physician, advance practice provider, medical student, or other health professional student that will be observing or involved in the sensitive examination for educational or training purposes was discussed with the Patient or Authorized 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 Coin Collector. The Patient or Authorized 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 Coin Collector has agreed to proceed with the sensitive examination. (Sensitive examination includes inspection and/or palpation of the breasts, pelvis, prostate and anorectal regions) VITALS: BP 141/75 Pulse 81 Temp 37.2 C (99 F) Ht 167.6 cm (5' 6 ) Wt 67.1 kg (147 lb 14.9 oz) SpO2 97% BMI 23.88 kg/m Dee Dee Wills, RN GENERAL: Patient is a well developed, [...] EXTREMITIES: Not tender. No ulcers or swelling. Hospice Bereavement Coordinator for exam: Melody Mena APRN.ORACLE FUSION MIDDLEWARE DEVELOPER RESULTS: CA 125 (U/mL) Date Value 12/13/2021 [...] symptoms - Referral to Dr. Sita Naidu [facility] - Mammogram gets this done locally, will review with PCP - Colonoscopy due, will review with PCP De eDee Carter APRN.MONSERRAT 05/30/2021 Distance Health Visit 61 yo female [...] any questions or concerns. Dee Dee Carter APRN.MONSERRAT 06/06/2021 61 yo female with h/o Stage [...] her today already. Test vaginal lesion for ER/ID receptors See me September 19 for post [...] hyperthyroidism, advised follow up with PCP and Leasing Associate. Ernesto Chacko APRN.ORACLE FUSION MIDDLEWARE DEVELOPER 03/13/2022 Recurrent Endometrial cancer with recurrence in [...] Recommend she start following with a F electric range preparer for her rectal bleeding. We will assist [...] which included preparing to see the patient, [id number] patient care, completing clinical documentation, obtaining and/or [...] Scribe Attestation: By signing my name below, I, Carolyn Echols, attest that this documentation has been prepared under the direction and in the presence of Henry Ramos MD. Electronically Signed: Blu Raymond. August 05, 2024 1:10 PM. Provider Attestation: I, Dr. Henry Ramos, personally performed the services described in this documentation. All medical record entries made by the alessioibe were at my direction and in my presence. I have reviewed the chart and discharge instructions (if applicable) and agree that the record reflects my personal performance and is accurate and complete. Electronically Signed: Henry Ramos MD. August 16, 2024 12:40 PM documented in this encounter [facility] 08-05-2024 Note HNO ID: [id number] Author: HENRY RAMOS MD Service: ? Author Type: Physician Type: Progress Notes Filed: 08/16/2024 12:41 Note Text: Gynecologic Oncology [facility] Follow up visit Date of service: 08/05/2024 PROBLEM/CC: Isabel Waddell presents for endometrial cancer surveillance visit with spotting. HPI: Ms. Waddell is a 64 year old female with [...] differentiation, FIGO grade 2. Neg LVSI, 13% CT pT1a (IA): Tumor limited to endometrium or invades less than 1/2 of the myometrium 05/25/2021 Vaginal biopsy Vagina, biopsy - Consistent with endometrioid adenocarcinoma (see comment). GZ/ka 05/28/2021 COMMENT The tumor cells are diffusely and strongly positive for immunohistochemical stain for Enterprise 8, supporting the above diagnosis. The patient [...] by mouth daily at bedtime. Disp: Rfl: [id number]-FISH OIL-L.CASEI ORALTake by mouth once daily.Disp: Rfl: Lactobac no.41/Bifidobact no.7 (PROBIOTIC-10 ORAL)Take by mouth once daily.Disp: Rfl: MULTIVITAMIN TABTake by mouth.Disp: Rfl: 0 B COMPLEX VITAMINS CAPTake one(1) capsule daily.Disp: Rfl: 0 CALCIUM CARBONATE-VIT D3-MINERALS 600 MG-400 UNIT TABTake 1 tablet by mouth two times a day.Disp: Rfl: 0 acetaminophen (TYLENOL) 500 mg tabletTake 1-2 tablets by mouth (more content not included)... [facility] 08-04-2024 Telephone encounter Note Called pt regarding msg. Pt c/o spotting. Pt has not been using a pad or panty liner. States that she is having some bright red blood with wiping. Pt accepted f/u appt to RTC with Dr. Ramos for tomorrow 08/05 at 11:10am. Msg sent to scheduling. [facility] 08-04-2024 Miscellaneous Notes Called pt regarding msg. Pt c/o spotting. Pt has not been using a pad or panty liner. States that she is having some bright red blood with wiping. Pt accepted f/u appt to RTC with Dr. Rachel for tomorrow 08/05 at 11:10am. Msg sent to scheduling. documented in this encounter [facility] 10-23-2023 Evaluation note Encounter Date Diagnosis Assessment Notes Oct, Iron deficiency anemia due to chronic blood loss (ICD-10 - D50.0) Oct, Decreased thyroid stimulating hormone (TSH) level (ICD-10 - R79.89) Oct, Pulmonary hypertension (ICD-10 - I27.20) [facility] Other 11-13-2023 History of Present illness Narrative* [...] of treatment plan: low [facility]23 NoteHNO ID: [id number] Author: [place] DO Service: ? 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) [facility] Other 11-01-2023 Evaluation note* Encounter Date Diagnosis Assessment Notes Treatment Notes Treatment Clinical Notes Sep, Elevated liver enzymes (ICD-10 - R74.8) Sep, Cholestasis (ICD-10 - K83.1) Sep, Thyrotoxicosis 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 storm, 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 - E05.90) [facility] Other 10-30-2023 Evaluation note* Encounter Date Diagnosis Assessment Notes Treatment Notes Treatment Clinical Notes Aug, Decreased thyroid stimulating hormone (TSH) level (ICD-10 - R79.89) [facility] Other 10-27-2023 Evaluation note* Encounter Date Diagnosis [...] Ferritin May be candidate for Fe IV [facility] Other 10-18-2023 Evaluation note* Encounter Date Diagnosis Assessment Notes Treatment Notes Treatment Clinical Notes Aug, Radiation proctitis (ICD-10 - K62.7) Aug, Iron deficiency anemia due to chronic blood loss (ICD-10 - D50.0) [facility] Other 10-17-2023 NoteHNO ID: [id number] Author: Brannon Sung APRN.PANEL BEATER Service: ? Author Type: Nurse Unix Systems Administrator Type: Anesthesia Procedure Notes Filed: 09/02/2023 8:05 AM Note Text: ANESTHESIOLOGY PROCEDURE NOTE Airway General Information Procedure Start Time/Medication Administration: 09/02/2023 7:58 AM Patient location during procedure: OR Timeout Performed Pre-procedure: timeout performed Consent Obtained: Yes Patient identity confirmed: arm band, care clinical team lead and patient Staffing PANEL BEATER: Brannon Sung APRN.PANEL BEATER Performed by: ALIN Indications and Patient Condition [...] September 02, 2023 TIME: 8:05 AM CSN: [id number] * Encounter Date Diagnosis Assessment Notes Treatment Notes Treatment Clinical Notes Aug, Dilated cardiomyopathy (ICD-10 - I42.0) Echo: LVEF normal, RVSP 31, LAE [facility] Other 10-13-2023 History and physical note* Elder Galan APRN.ORACLE FUSION MIDDLEWARE DEVELOPER - 08/29/2023 11:00 AM EDT COLON AND [...] of treatment plan: high documented [facility] History of Present illness Narrative* Heidi Menard MD - 08/29/2023 10:00 AM EDT Images from the original note were not included. Ms. Waddell is a 63 year old female who presents to the [facility] [place]. 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 Hgb drop from baseline 09-29 to 7.1 inthe setting of multiple episodes [...] MD Pulmonary and Critical Care Fellow [facility] [place] Staff note: I have personally interviewed and [...] Hilton Adame MD 08/29/2023 documented [facility]2023 NoteHNO ID: [id number] Author: Heidi Menard MD Service: ? Author Type: Fellow Type: Progress Notes Filed: 08/29/2023 4:02 PM Note Text: Ms. aWddell is a 63 year old female who presents to the [facility] [place]. 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 Author Type: Registered Resp Therapist Type: Progress Notes Filed: 08/29/2023 9:52 AM Note Text: PULM FUNCTION SMARTBLOCK: Provider: Mike Presley MD Spirometry: 1 DLCO: 1 LV - Box[facility]CK[facility]10[facility] History of Present illness Narrative* Sveta Roman RRT - 08/29/2023 9:52 AM EDT PULM FUNCTION SMARTBLOCK: Provider: Mike Presley MD Spirometry: 1 DLCO: 1 LV - Box: 1 documented in this encounterL[facility]10-13-2023 History of Present illness Narrative* Marshal [...] 29, 2023 9:10 AM documented in this encounterL[facility]10-13-2023 NoteHNO ID: [id number] Author: Marshal Vasquez RT (R) Service: ? Author Type: Technologist Type: Progress [...] BY: DAVID Munoz) August 29, 2023 9:10 [facility]10-10-2023 NoteHNO ID: [id number] Author: Gilberto Beth Service: ? Author Type: ? Type: Progress Notes Filed: 08/26/2023 4:28 PM Note Text: Sang to pair w dlco/lv on upcoming [facility] History of Present illness Narrative* Gilberto Beth - 08/26/2023 4:16 PM EDT Dawson to pair w dlco/lv on upcoming f/u visit documented in this encounterL[facility]10-06-2023 NoteHNO ID: [id number] Author: Nuvia Grewal RT(R) Service: Radiology Author Type: Finish Remover Type: Progress Notes Filed: 08/22/2023 8:34 AM [...] August 22, 2023 8:33 AMDelta Community Medical [id number] History of Present illness Narrative* Nuvia Grewal [...] IV DATA: Not applicable SIGNED BY: RT Seth(Be) August 22, 2023 8:33 AM documented in this encounterL[facility]09-18-2023 Evaluation note* Encounter Date Diagnosis Assessment [...] symptoms. Will initiate antibiotics and have called [facility]. Since her symptoms developed > 5 days ago, no Paxlovid has been prescribed Jul, Bronchitis, not specified as acute or chronic (ICD-10 - J40) Instructed to use Robitussin or Mucinex for cough, saline or Flonase NS for congestion, Tylenol for pain and fever. [facility] Other 09-05-2023 Miscellaneous Notes* Telephone Encounter - Divya Karimi - 07/22/2023 3:17 PM EDT Isabel Waddell accepts 09/01 and 09/02 dates for preop and surgery documented in this encounterL[facility]09-05-2023 Miscellaneous Notes* Telephone Encounter - Enid Baker - 07/22/2023 2:48 PM EDT [phone] Patient calling to reschedule her EUA. documented in this encounterLanc[facility]08-22-2023 Evaluation note* Encounter Date Diagnosis Assessment Notes Treatment Notes Treatment Clinical Notes Jun, SHERIF (generalized anxiety disorder) (ICD-10 - F41.1) [facility] Other 08-18-2023 History and physical note* South [...] reports regular bowel movements. 03/05/23 Cherelle Medina, ORACLE FUSION MIDDLEWARE DEVELOPER: Isabel Waddell is a 62 year old [...] 150 mg by mouth daily at bedtime. [id number]-[id number]-FISH OIL-L.CASEI ORAL Take by mouth once daily. [...] Documents Reviewed/ordered: Review of prior notes from [facility], pulmonary medicine Review of prior operative reports Review of Pathology Review of Imaging: CT Abdomen, CT Pelvis, CT Chest Review of Labs: CBC Review of Procedures / Tests: Colonoscopy I have independently interpreted: CT Abdomen, CT Pelvis I have discussed Isable Waddell's treatment plan and/or results with patient. [...] of treatment plan: high documented in this encounterL[facility]08-11-2023 History of Present illness Narrative* Heidi Menard MD - 06/27/2023 10:29 AM EDT Images from the original note were not included. Ms. Waddell is a 63 year old female who presents to the [facility] [place]. Consultation requested by Self. 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 Silica: No significant exposure. [place]: No significant exposure. Organic HP antigen: No [...] 150 mg by mouth daily at bedtime. TCUQ3-YEL-CXU-FISH OIL-L.CASEI ORAL Take by mouth once daily. [...] personally reviewed by me Data Reviewed from [facility] (in addition to that noted [...] MD Pulmonary and Critical Care Fellow [facility] [place] STAFF ATTENDING NOTE I have personally interviewed [...] Mike Thompson MD 06/29/2023 documented in this encounterLanc[facility]08-[facility]23 History of Present illness Narrative* Dayan Marley RRT - 06/27/2023 10:26 AM EDT PULM FUNCTION SMARTBLOCK: Provider: Pedro Rodarte MD Spirometry: 1 System: 3 - [id number] documented in this encounterLancaster [facility] Hospital07-07-2023 Evaluation note* Encounter Date Diagnosis Assessment [...] and feet daily for blisters and ulcerations. [facility] Other 06-27-2023 Evaluation note* Encounter Date Diagnosis Assessment Notes Treatment Notes Treatment Clinical Notes Apr, History of total right hip replacement (ICD-10 - Z96.641) [facility] Other 06-07-2023 Evaluation note* Encounter Date Diagnosis [...] F41.1) Healthy diet, exercise and keep active [facility] Other 2023 Evaluation note* Encounter Date Diagnosis Assessment Notes Treatment Notes Treatment Clinical Notes March, Mild intermittent asthma without complication (ICD-10 - J45.20) [facility] Other 05-05-2023 Evaluation note* Encounter Date Diagnosis Assessment Notes Treatment Notes Treatment Clinical Notes March, Dyspnea on exertion (ICD-10 - R06.09) [facility] Other 04-24-2023 Evaluation note* Encounter Date Diagnosis Assessment Notes Treatment Notes Treatment Clinical Notes Feb, Shortness of breath (ICD-10 - R06.02) Feb, Subacute cough (ICD-10 - R05.2) [facility] Other 04-19-2023 Instructions* Patient Instructions* Cherelle Medina APRN.ORACLE FUSION MIDDLEWARE DEVELOPER - 03/05/2023 9:47 AM EDT Images from the original note were not included. Thank you for seeing me in clinic today. As we discussed, my recommendations are as follows: 1.Colonoscopy If you have any questions about the above treatment plan, please do not hesitate to call the officeor send me a [employer] message. Bowel Preparation Instructions for: Miralax-Gatorade Preparations [...] If you do not have a responsible gas truck driver (family member or friend) withyou to take you home, your exam cannot be done with sedation and will be cancelled. Please bring a list of all of your current medications, including any Mzhh-tsw-Pfjunmr medications with you. Medications If you take [...] your exam. 2 10/2019 documented in this encounterLanc[facility]04-19-2023 History and physical note * Cherelle Medina [...] Abs Lymph 1.00 - 4.00 k/uL 1.31 Pershing% % 11.1 Abs Pershing <0.87 k/uL 0.50 Eosin% % 3.1 Abs [...] 150 mg by mouth daily at bedtime. [id number]-WDZ-LSU-FISH OIL-L.CASEI ORAL Take by mouth once daily. [...] -radiation proctitis?? This note was dictated using IntY speech recognition software and may contain some errors that were a result of the program not accurately transcribing what was dictated. Cherelle Medina APRN.MONSERRAT documented in this encounterLancaster [facility] Hospital03-10-2023 Evaluation note* Encounter Date Diagnosis Assessment Notes Treatment Notes Treatment Clinical Notes Jan, Acute bronchitis due to other specified organisms (ICD-10 - J20.8) Instructed to use Robitussin or Mucinex for cough, saline or Flonase NS for congestion, Tylenol for pain and fever. [facility] Other 03-06-2023 Evaluation note* Encounter Date Diagnosis [...] weeks for the cough to go away [facility] Other 02-17-2023 History of Present illness Narrative* Henry Ramos MD - 01/03/2023 3:20 PM EST Gynecologic Oncology [facility] Follow up visit Date of service: [...] differentiation, FIGO grade 2. Neg LVSI, 13% CT pT1a ([place]): Tumor limited to endometrium or invades less than 1/2 of the myometrium 05/25/2021 Vaginal biopsy Vagina, biopsy - Consistent with endometrioid adenocarcinoma (see comment). GZ/ka 05/28/2021 COMMENT The tumor cells are diffusely and strongly positive for immunohistochemical stain for Enterprise 8, supporting the above diagnosis. The patient [...] 150 mg by mouth daily at bedtime. [id number]-MTA-VJX-FISH OIL-L.CASEI ORAL Take by mouth once daily. [...] has a trip planned to [facility] next week for 10 days. PHYSICAL [...] or swelling. Deep tendon reflexes are present Hospice Bereavement Coordinator for exam: Shelli Villarreal APRN.CNP RESULTS: CA 125 (U/mL) Date [...] symptoms - Referral to Dr. Sita Naidu [facility] - Mammogram gets this done locally, will review with PCP - Colonoscopy due, will review with PCP 05/30/2021- Dee Dee Carter APRN.ORACLE FUSION MIDDLEWARE DEVELOPER (distance health visit) 61 yo female with [...] her today already. Test vaginal lesion for ER/ID receptors See me September 19 for post [...] hyperthyroidism, advised follow up with PCP and Leasing Associate. Ernesto Chacko APRN.ORACLE FUSION MIDDLEWARE DEVELOPER 03/13/2022 Recurrent Endometrial cancer with recurrence in [...] Recommend she start following with a F electric range preparer for her rectal bleeding. We will assistwith [...] 03, 2023 4:37 PM documented in this encounterLancaster [facility] Hospital02-08-2023 Miscellaneous Notes* Telephone Encounter - Aretha [...] know if she should schedule an appointment. [phone] documented in this encounterLancaster [facility] Hospital11-10-2022 Nurse Note* Francisca Gómez RN - [...] RN In Department: GASTROENTEROLOGY documented in this encounterLancaster [facility] Hospital11-10-2022 Miscellaneous Notes* Sedation Documentation - Aretha Deluna RN - 09/26/2022 12:00 PM EST Grounding pad placed at right flank. Skin Intact. LOT#[id number]. documented in this encounterLancaster [facility] Hospital11-03-2022 Miscellaneous Notes* Telephone Encounter - Kelly Ch MA - 09/19/2022 3:49 PM EDT Attempted to reach the patient at the contact number that they provided [phone] (home) . Unable to speak with patient so without identifying the patient the following information was left on their voice mail: Date of procedure, location and report time Prep instructions A message was left informing the patient/patient sales representative education courses they must have a responsible adult accompany [...] Number to call with questions or concerns [phone] Number to call to cancel their procedure [phone] Kelly Ch MA documented in this encounterLancaster [facility] Hospital09-21-2022 Instructions* Patient Instructions* Ernesto Chacko APRN.MONSERRAT [...] If you do not have a responsible gas truck driver (family member or friend) with [...] your exam. 2 10/2019 documented in this encounterLancaster [facility] Hospital09-21-2022 History of Present illness Narrative* Henry Ramos MD - 08/07/2022 3:20 PM EDT Gynecologic Oncology [facility] Follow up visit Date of service: [...] differentiation, FIGO grade 2. Neg LVSI, 13% CT pT1a (IA): Tumor limited to endometrium or invades less than 1/2 of the myometrium 05/25/2021 Vaginal biopsy Vagina, biopsy - Consistent with endometrioid adenocarcinoma (see comment). GZ/ka 05/28/2021 COMMENT The tumor cells are diffusely and strongly positive for immunohistochemical stain for Enterprise 8, supporting the above diagnosis. The patient [...] 150 mg by mouth daily at bedtime. EPHY9-YLJ-NDL-FISH OIL-L.CASEI ORAL Take by mouth once daily. [...] groin. LOWER EXTREMITIES: No swelling or edema. Hospice Bereavement Coordinator for exam: Promise Mclaughlin MA RESULTS: 05/25/2021 - VAGINAL BIOPSY Vagina, biopsy - Consistent with endometrioid adenocarcinoma (see comment). GZ/ka 05/28/2021 COMMENT The tumor cells are diffusely and strongly positive for immunohistochemical stain for Enterprise 8, supporting the above diagnosis. The patient [...] dedicated report for findings in the abdomen Community Artist (topogram) images: None CA 125 (U/mL) Date Value 12/13/2021 9 06/04/2021 8 07/12/2019 15 ASSESSMENT & PLAN: 05/25/2021-Dee Dee Carter APRN.ORACLE FUSION MIDDLEWARE DEVELOPER [place] endometrioid type endometrial adenocarcinoma, FIGO grade [...] symptoms - Referral to Dr. Sita Naidu [facility] - Mammogram gets this done locally, will review with PCP - Colonoscopy due, will review with PCP 05/30/2021- Dee Dee Carter APRN.ORACLE FUSION MIDDLEWARE DEVELOPER (distance health visit) 61 yo female with [...] her today already. Test vaginal lesion for ER/ID receptors See me September 19 for post [...] hyperthyroidism, advised follow up with PCP and Leasing Associate. Ernesto Chacko APRN.ORACLE FUSION MIDDLEWARE DEVELOPER 03/13/2022 Recurrent Endometrial cancer with recurrence in [...] 07, 2022 4:19 PM documented in this encounterLancaster [facility] Hospital04-27-2022 History of Present illness Narrative* Henry Ramos MD - 03/13/2022 2:50 PM EDT Gynecologic Oncology [facility] Follow up visit Date of service: [...] differentiation, FIGO grade 2. Neg LVSI, 13% CT pT1a (IA): Tumor limited to endometrium or invades less than 1/2 of the myometrium 05/25/2021 Vaginal biopsy Vagina, biopsy - Consistent with endometrioid adenocarcinoma (see comment). GZ/ka 05/28/2021 COMMENT The tumor cells are diffusely and strongly positive for immunohistochemical stain for Enterprise 8, supporting the above diagnosis. The patient [...] 150 mg by mouth daily at bedtime. CALV9-YLC-KWN-FISH OIL-L.CASEI ORAL Take by mouth once daily. [...] absent LOWER EXTREMITIES: No swelling or edema. Hospice Bereavement Coordinator for exam: Modlo RESULTS: 05/25/2021 - VAGINAL BIOPSY Vagina, biopsy - Consistent with endometrioid adenocarcinoma (see comment). GZ/ka 05/28/2021 COMMENT The tumor cells are diffusely and strongly positive for immunohistochemical stain for Enterprise 8, supporting the above diagnosis. The patient [...] dedicated report for findings in the abdomen Community Artist (topogram) images: None CA 125 (U/mL) Date Value 12/13/2021 9 06/04/2021 8 07/12/2019 15 ASSESSMENT & PLAN: 05/25/2021-Dee Dee Carter APRN.ORACLE FUSION MIDDLEWARE DEVELOPER [place] endometrioid type endometrial adenocarcinoma, FIGO grade [...] symptoms - Referral to Dr. Sita Naidu [facility] - Mammogram gets this done locally, will review with PCP - Colonoscopy due, will review with PCP 05/30/2021- Dee Dee Carter APRN.ORACLE FUSION MIDDLEWARE DEVELOPER (distance health visit) 61 yo female with [...] her today already. Test vaginal lesion for ER/ID receptors See me September 19 for post [...] hyperthyroidism, advised follow up with PCP and Leasing Associate. Ernesto Chacko APRN.ORACLE FUSION MIDDLEWARE DEVELOPER 03/13/2022 Recurrent Endometrial cancer with recurrence in [...] Past Histories independently gathered by the clinical support merchandiser and the remaining scribed note accurately describes my personal service to the patient. documented in this encounterLanc[facility] Hospital01-27-2022 History of Present illness Narrative* Leigh Romo [...] SIGNATURE: Leigh Romo RN PATIENT NAME: Isabel Waddell DATE: December 13, 2021 TIME: 9:10 AM * Gibson Bob RT(R) - 12/13/2021 9:00 AM EST Radiology Service Progress Note PATIENT NAME: Isabel Waddell DATE OF SERVICE: December 13, 2021 TIME: [...] 13, 2021 9:35 AM documented in this encounterLancaster Municipal HospitalEvaluation note* Diagnosis Dizziness- Primary Dizziness and giddiness Dehydration documented in this encounter [employer] Phone: evaluation note* Diagnosis Recurrent carcinoma of endometrium (HCC)- Primary Malignant neoplasm of corpus uteri, except isthmus Vaginal atrophy Postmenopausal atrophic vaginitis Foreshortening of vagina documented [facility] this encounter [facility]* Diagnosis Recurrent carcinoma of endometrium (HCC)- Primary Malignant neoplasm of corpus uteri, except isthmus Radiation proctitis Other specified disorder of rectum and anus Foreshortening of vagina Endometrial cancer (HCC) Malignant neoplasm of corpus uteri, except isthmus Vaginal atrophy Postmenopausal atrophic vaginitis Rectal bleeding Hemorrhage of rectum and anus [facility] Diagnosis History of thyroid disease- Primary Personal history of other endocrine, metabolic, and immunity disorders Rectal bleeding Hemorrhage of rectum and anus documented in this encounter [facility]* Diagnosis Recurrent carcinoma of endometrium (HCC)- Primary Malignant neoplasm of corpus uteri, except isthmus Radiation proctitis Other specified disorder of rectum and anus Blood per rectum Hemorrhage of rectum and anus documented [facility] noteNo [employer] Other Evaluation note* Diagnosis Rectal bleeding- Primary Hemorrhage of rectum and anus documented [facility]* Diagnosis Radiation proctitis- Primary Other specified disorder of rectum and anus [facility]* Diagnosis Dyspnea, unspecified type- Primary documented in this encounter [facility]* Diagnosis 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) documented [facility] this encounter [facility]* Diagnosis Radiation proctitis- Primary Other specified disorder of rectum and anus documented [facility] encounter [facility]* Diagnosis Endometrial cancer (HCC)- Primary Malignant neoplasm of corpus uteri, except isthmus Radiation proctitis Other specified disorder of rectum and anus Radiation proctitis Other specified disorder of rectum and anus documented [facility] this encounter [facility]* Diagnosis Radiation proctitis- Primary Other specified disorder of rectum and anus documented [facility] this encounter [facility]* Diagnosis ILD (interstitial lung disease) (HCC)- Primary Postinflammatory pulmonary fibrosis Radiation proctitis Other specified disorder of rectum and anus [facility] Diagnosis ILD (interstitial lung disease) (HCC) Postinflammatory pulmonary fibrosis Radiation proctitis Other specified disorder of rectum and anus documented [facility]* Diagnosis Interstitial pulmonary disease (HCC) Postinflammatory pulmonary fibrosis Radiation proctitis Other specified disorder of rectum and anus [facility]* Diagnosis Dyspnea and respiratory abnormalities- Primary Other dyspnea and respiratory abnormality Calcified nodule Localized superficial swelling, mass, or lump Iron deficiency anemia due to chronic blood loss Iron deficiency anemia secondary to blood loss (chronic) Radiation proctitis Other specified disorder of rectum and anus [facility]* Diagnosis Dyspnea, unspecified type Radiation proctitis Other specified disorder of rectum and anus [facility]* Diagnosis Pre-op evaluation- Primary Preoperative examination, unspecified Radiation proctitis Other specified disorder of rectum and anus documented [facility]* Diagnosis Interstitial pulmonary disease (HCC) Postinflammatory pulmonary fibrosis [facility]* Diagnosis Radiation proctitis- Primary Other specified disorder of rectum and anus Endometrial cancer (HCC) Malignant neoplasm of corpus uteri, except isthmus documented [facility]* Diagnosis Onset Date Resolution Status Graves disease acute Hypertension acute Thyrotoxicosis acute [facility] Work Phone: Evaluation note* Diagnosis Preoperative [...] anus documented [facility]* Diagnosis Preoperative examination- Primary Preoperative examination, unspecified Endometrial cancer (HCC) Malignant neoplasm of corpus uteri, except isthmus Essential hypertension Unspecified essential hypertension History of thyroid disease Personal history of other endocrine, metabolic, and immunity disorders Malignant neoplasm of endometrium (HCC) Malignant neoplasm of corpus uteri, except isthmus documented [facility]* Diagnosis Preoperative examination- Primary Preoperative examination, unspecified Endometrial cancer (HCC) Malignant neoplasm of corpus uteri, except isthmus Essential hypertension Unspecified essential hypertension History of thyroid disease Personal history of other endocrine, metabolic, and immunity disorders NO SHOW- Primary documented in this encounter [facility]* Diagnosis Seborrheic keratosis- Primary Melanocytic nevus of trunk Benign neoplasm of skin of trunk, except scrotum [facility] Diagnosis History of right hip replacement- Primary Acute pain of right hip Lumbar radiculopathy, right documented [facility] encounter [facility] HealthcareEvaluation noteNo assessment information availableLancaster [facility] Hospital Work Phone: Evaluation note* Diagnosis Acute pain of right hip- Primary History of right hip replacement Lumbar radiculopathy, right Sacroiliac joint pain Disorders of sacrum Right leg weakness Muscle weakness (generalized) Right leg paresthesias Disturbance of skin sensation [facility] Diagnosis Lumbar radiculopathy- Primary Thoracic or lumbosacral neuritis or radiculitis, unspecified Right hip pain Pain in joint, pelvic region and thigh documented in this encounter [facility] Work Phone: Hisw[employer] general Narrative - Reported* Type Description Date Medical History menopause Medical History endometrial cancer hx Surgical History Bilateral Knee Scope Surgical History Bilateral Shoulder Scope Surgical History Bilateral Carpal Tunnel Surgical History x 3 Surgical History Pituatary Tumor Surgical History hysterectomy Surgical History right thumb excision of trapezi 09/14/2020 [facility] Other Histqav general Narrative - Reported* Type Description Date Medical History menopause Medical History endometrial cancer hx Surgical History Bilateral Knee Scope Surgical History Bilateral Shoulder Scope Surgical History Bilateral Carpal Tunnel Surgical History x 3 Surgical History Pituatary Tumor Surgical History hysterectomy Surgical History right thumb excision of trapezi um 09/14/2020 Hospitalization History see surgical history [facility] Other Hisqeoc general Narrative - Reported* Type Description Date Medical History menopause Medical History endometrial cancer hx Medical History Dilated Cardiomyopathy Surgical History Bilateral Knee Scope Surgical History Bilateral Shoulder Scope Surgical History Bilateral Carpal Tunnel Surgical History x 3 Surgical History Pituatary Tumor Surgical History hysterectomy Surgical History right thumb excision of trapezi um 09/14/2020 Hospitalization History see surgical history [facility] Other History general Narrative - Reported* Type [...] Sigmoidoscopy 08/2023 Hospitalization History see surgical history [facility] Other History general Narrative - Reported* Type [...] Sigmoidoscopy 08/2023 Hospitalization History see surgical history [facility] Other Hospital Discharge instructions* Attachments The following attachments cannot be sent through Care Everywhere. * Dehydration (Tuvaluan) * Oral Rehydration (Tuvaluan) [facility]: reason for referral (narrative)* Outpatient Procedure (Routine) - Closed Specialty Diagnoses / Procedures Referred By Kelly alberts Referred To Contact [facility] [place] Diagnoses Rectal bleeding Procedures COLONOSCOPY SCREENING COLONOSCOPY FLX DX W/COLLJ SPEC WHEN PFErnesto Iglesias APRN.CNP [address] [place] [address] [facility] Disease [address] [address] Referral ID Status Reason Start Date Expiration Date V isits Requested Visits Authorized [id number] Closed Auto-Generate d Referral 08/07/2022 08/07/2023 1 1 [facility] for referral (narrative)* Outpatient Procedure (Routine) - Pending Review Specialty Diagnoses / Procedures Referred By Kelly alberts Referred To Contact [facility] Diagnoses Rectal bleeding Procedures COLONOSCOPY (THERAPEUTIC) COLONOSCOPY FLX ABLATION TUMOR POLYP/OTHER Cherelle Mendoza APRN.CNP [address] [address] [facility] Disease [address] [address] Referral ID Status Reason Start Date Expiration Date Visits Requested Visits Authorized [id number] Pending Review Auto-Generat ed Referral 03/05/2023 03/05/2024 1 1 [facility] for referral (narrative)* Outpatient Procedure (Routine) - Authorized Specialty Diagnoses / Procedures Referred By Contac t Referred To Contact [facility] Diagnoses Other secondary pulmonary hypertension (HCC) Procedures ECHO ECHO TTHRC R-T 2D W/WOM-MODE COMPL SPEC&COLR D Mike Presley MD [address] [place], [place] [id number] [facility] [place] [address] [place] [id number] Referral ID Status Reason Start Date Expiration Date Visits Requested Visits Authorized [id number] Authorized Auto-Generat ed Referral 06/27/2023 06/26/2024 1 1 * Diagnostic Procedure Only (Routine) - Pending Review Specialty Diagnoses / Procedures Referred By Contac t Referred To Contact [facility] Diagnoses Other secondary pulmonary hypertension (HCC) Procedures NM LUNG VENT / PERF VQ PULMONARY VENTILATION & PERFUSION IMAGING Mike Presley MD [address] [place], [place] [id number] [facility] Functional Imaging [address] [place] [address] Referral ID Status Reason Start Date Expiration Date Visits Requested Visits Authorized [id number] Pending Review Auto-Generat ed Referral 06/27/2023 07/26/2024 1 1 * Outpatient Procedure (Routine) - Pending Review Specialty Diagnoses / Procedures Referred By Contac t Referred To Contact [facility] Diagnoses Interstitial pulmonary disease (HCC) Procedures LUNG VOLUMES Mike Presley MD [address] [place], [place] [id number] [place] [id number] Referral ID Status Reason Start Date Expiration Date Visits Requested Visits Authorized [id number] Pending Review Auto-Generat ed Referral 06/27/2023 07/26/2024 1 1 * Outpatient Procedure (Routine) - Authorized Specialty Diagnoses / Procedures Referred By Contac t Referred To Contact [facility] Diagnoses Interstitial pulmonary disease (HCC) Procedures LUNG DIFFUSION CAPACITY (DLCO) DIFFUSING CAPACITY Mike Presley MD [address] [place], [place] [id number] [place] [address] Referral ID Status Reason Start Date Expiration Date Visits Requested Visits Authorized [id number] Authorized Auto-Generat ed Referral 06/27/2023 07/26/2024 1 1 * MRI/CT (Routine) - Authorized Specialty Diagnoses / Procedures Referred By Kelly t Referred To Contact CT IMAGING Diagnoses Interstitial pulmonary disease (HCC) Procedures CT CHEST WO IVCON DIAGNOSTIC COMPUTED TOMOGRAPHY THORAX W/O CNTRST Mike Presley MD [address] [place], [place] [id number] Ct Imaging Referral ID Status Reason Start Date Expiration Date Visits Requested Visits Authorized [id number] Authorized Auto-Generat ed Referral 06/27/2023 07/26/2024 1 1 [facility] for referral (narrative)* Outpatient Procedure (Routine) - Authorized Specialty Diagnoses / Procedures Referred By Kelly t Referred To Contact [facility] Diagnoses ILD (interstitial lung disease) (HCC) Procedures SPIROMETRY BASELINE ONLY SPMTRY W/VC EXPIRATORY BERNIE W/WO MXML VOL VNTJ Mike Presley MD [address] [place], [place] [id number] [facility] [place] [address] [place] [address] Referral ID Status Reason Start Date Expiration Date Visits Requested Visits Authorized [id number] Authorized Auto-Generat ed Referral 3 09/24/2024 1 1 [facility] Procedure (Routine) - Closed Specialty Diagnoses / Procedures Referred By Kelly alberts Referred To Contact [facility] Diagnoses Rectal bleeding Procedures COLONOSCOPY SCREENING COLONOSCOPY FLX DX W/COLLJ SPEC WHEN PFRMD Ernesto Chacko APRN.ORACLE FUSION MIDDLEWARE DEVELOPER [address] [place] [address] [facility] Disease [place] [address] [place] [address] Referral ID Status Reason Start Date Expiration Date V isits Requested Visits Authorized [id number] Closed Auto-Generate d Referral 08/07/2022 08/07/2023 1 1 [facility] Summary Purpose Family History No Family History Records Found Relationship Condition Age at Onset Recorded Date/T sebastian mother Disorder of thyroid Unknown Dementia Unknown grandparent Disorder of thyroid Unknown father Osteoarthritis Unknown Advance Directives No Advanced Directives Records FoundDocuments on File Type Date Recorded 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 Advance Directive(s) 08/12/2019 10:47 AM Advance Directive(s) 07/28/2019 9:20 AM Documents on File Type Date Recorded 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 Advance Directive(s) 07/28/2019 9:20 AM Documents on File Type Date Recorded 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 Advance Directive(s) 07/28/2019 9:20 AM Advance Directive Response Recorded Date/ Time Advance Directives No August 18, 2018 2:26pm Advance Directive Response Recorded Date/ Time Advance Directives No August 18, 2018 1:26pm Reason for Referral Specialty Diagnoses / Procedures Referred By Kelly alberts Referred To Contact Gastroenterology Diagnoses Rectal bleeding Procedures CONSULT TO GASTROENTEROLOGY OFFICE/OUTPATIENT NEW HIGH MDM 60-74 MINUTES Ernesto Chacko, BETTY.ORACLE FUSION MIDDLEWARE DEVELOPER [address] [place] [address] Referral ID Status Reason Start Date Expiration Date Visits Requested Visits Authorized [id number] Authorized PCP Requested Referral 08/07/2022 08/07/2023 1 1 Specialty Diagnoses / Procedures Referred By Kelly t Referred To Contact [facility] Diagnoses Rectal bleeding Procedures COLONOSCOPY SCREENING COLONOSCOPY FLX DX W/COLLJ SPEC WHEN PFRMD Ernesto Chacko APRN.ORACLE FUSION MIDDLEWARE DEVELOPER [address] [place] [id number] [facility] [place] [address] [place] [address] Referral ID Status Reason Start Date Expiration Date Visits Requested Visits Authorized [id number] Pending Review Auto-Generat ed Referral 08/07/2022 08/07/2023 1 1 Specialty Diagnoses / Procedures Referred By Kelly t Referred To Contact CT IMAGING Diagnoses Interstitial pulmonary disease (HCC) Procedures CT CHEST WO IVCON DIAGNOSTIC COMPUTED TOMOGRAPHY THORAX W/O CNTRST Mike Presley MD [address] [place] [id number] Ct Imaging [place] [address] Referral ID Status Reason Start Date Expiration Date V isits Requested Visits Authorized [id number] Closed Auto-Generate d Referral 06/27/2023 07/26/2024 1 1 Reason Iron deficiency anem ia Diagnosis 1 Iron deficiency anem ia due to chronic blood loss (D50.0) Referral Organization [facility] Referring Provider First Name Roland Referring Provider Last Name Maggie Referring Provider Specialty Internal Me dicine Referred Organization [facility] Referred Provider NAJMA BARBOUR Referred Address [address] [place], [place],[address] Referred Provider Specialty Hematology Referral Priority Routine General Notes Mrs. Waddell is being r eferred for symptomatic iron deficiency anemia. 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 She has completed endoscopic treatment for her chronic bleeding and has received 2 units of PRBC while at [facility] for her [facility]. I am referring Mrs. Waddell for IV Fe therapy Clinical Notes Include latest CBC, Fe, TIBC, Ferritin, percent iron saturation Specialty Diagnoses / Procedures Referred By Kelly alberts Referred To Contact CT IMAGING Diagnoses Malignant neoplasm of endometrium (HCC) Procedures CT CHEST W IVCON CAT SCAN OF CHEST CONTRAST Ernesto Chacko APRN.ORACLE FUSION MIDDLEWARE DEVELOPER [address] [place] [address] Ct Imaging [facility] Referral ID Status Reason Start Date Expiration Date V isits Requested Visits Authorized [id number] Closed Auto-Generate d Referral 11/28/2021 01/12/2022 1 1 Specialty Diagnoses / Procedures Referred By Kelly alberts Referred To Contact CT IMAGING Diagnoses Malignant neoplasm of endometrium (HCC) Procedures CT ABD/PEL W IVCON CT ABD & PELVIS W/CONTRAST Ernesto Chacko, BETTY.ORACLE FUSION MIDDLEWARE DEVELOPER [address] [place] [address] Ct Imaging [facility] Referral ID Status Reason Start Date Expiration Date V isits Requested Visits Authorized [id number] Closed Auto-Generate d Referral 11/28/2021 01/12/2022 1 [...] Admit Date cough, ear pain, chest congestion Januar y 2024 9:10am Additional Source Comments INFORMATION SOURCE (unrecogn ized section and content) DATE CREATED AUTHOR 11/29/2019 [facility] DATE CREATED AUTHOR AUTHOR'S ORGANIZ ATION 11/23/2021 [facility] DATE CREATED AUTHOR AUTHOR'S ORGANIZ ATION 03/20/2022 [facility] DATE CREATED AUTHOR AUTHOR'S ORGANIZ ATION 03/28/2023 [facility] DATE CREATED AUTHOR AUTHOR'S ORGANIZ ATION 08/25/2023 [facility] DATE CREATED AUTHOR AUTHOR'S ORGANIZ ATION 08/23/2024 [facility] DATE CREATED AUTHOR AUTHOR'S ORGANIZ ATION 12/05/2024 [facility] EPIC DATE CREATED AUTHOR AUTHOR'S ORGANIZ ATION 12/13/2024 [facility] Reason for Visit (unrecogniz ed section [...] Rectal bleeding Procedures CONSULT TO GASTROENTEROLOGY OFFICE/OUTPATIENT [facility] MDM 60-74 MINUTES Ernesto Chacko APRN.ORACLE FUSION MIDDLEWARE DEVELOPER [address] [place] [address] Referral ID Status Reason Start Date Expiration Date V isits Requested Visits Authorized [id number] Closed PCP Requested Referral 08/07/2022 08/07/2023 1 1 Reason Comments Spirometry Specialty Diagnoses / Procedures Referred By Contac t Referred To Contact [facility] Diagnoses Dyspnea, unspecified type Procedures SPIROMETRY WITH DILATOR IF OBSTRUCTED BRNCDILAT RSPSE SPMTRY PRE&POST-BRNCDILAT ADMN Pedro Rodarte MD [address] [place] [address] [facility] [place] [address] [place] [address] Referral ID Status Reason Start Date Expiration Date V isits Requested Visits Authorized [id number] Closed Auto-Generate d Referral 05/23/2023 06/21/2024 1 1 Reason Comments New Reason Comments New Radiation proctitis Specialty Diagnoses / Procedures Referred By Contac t Referred To Contact Colon and Rectal Surgery Diagnoses Radiation proctitis Procedures CONSULT TO COLO-RECTAL SURGERY OFFICE/OUTPATIENT NEW HIGH MDM 60-74 MINUTES Shelli Villarreal APRN.ORACLE FUSION MIDDLEWARE DEVELOPER [address] [place] [address] [place] DO [address] [place] [address] Referral ID Status Reason Start Date Expiration Date V isits Requested Visits Authorized [id number] Closed PCP Requested Referral 05/16/2023 05/15/2024 1 1 Reason Comments Patient Update Specialty Diagnoses / Procedures Referred By Contac t Referred To Contact [facility] Diagnoses ILD (interstitial lung disease) (HCC) Procedures SPIROMETRY BASELINE ONLY SPMTRY W/VC EXPIRATORY BERNIE W/WO MXML VOL VNTJ Mike Presley MD [address] [place] [address] [facility] [place] [address] [place] [address] Referral ID Status Reason Start Date Expiration Date V isits Requested Visits Authorized [id number] Closed Auto-Generate d Referral 08/26/2023 09/24/2024 1 1 Specialty Diagnoses / Procedures Referred By Contac t Referred To Contact [facility] Diagnoses Interstitial pulmonary disease (HCC) Procedures LUNG DIFFUSION CAPACITY (DLCO) DIFFUSING CAPACITY Mike Presley MD [address] [place] [address] [facility] [place] [address] [place] [address] Referral ID Status Reason Start Date Expiration Date V isits Requested Visits Authorized [id number] Closed Auto-Generate d Referral 06/27/2023 07/26/2024 1 1 Reason Comments Radio Gen A21 Reason Comments Pre-Op Exam Specialty Diagnoses / Procedures Referred By Contac t Referred To Contact CT IMAGING Diagnoses Interstitial pulmonary disease (HCC) Procedures CT CHEST WO IVCON DIAGNOSTIC COMPUTED TOMOGRAPHY THORAX W/O CNTRST Mike Presley MD [address] [place] [address] Ct Imaging [place] [address] Referral ID Status Reason Start Date Expiration Date V isits Requested Visits Authorized [id number] Closed Auto-Generate d Referral 06/27/2023 07/26/2024 1 1 Reason Comments Radiology [place] Specialty Diagnoses / Procedures Referred By Contac t Referred To Contact CT IMAGING Diagnoses Malignant neoplasm of endometrium (HCC) Procedures CT CHEST W IVCON CAT SCAN OF CHEST CONTRAST Ernesto Chacko, POSITION CLASSIFICATION MANAGER.ORACLE FUSION MIDDLEWARE DEVELOPER [address] [place] [id number] Ct Imaging [place] [address] Referral ID Status Reason Start Date Expiration Date V isits Requested Visits Authorized [id number] Closed Auto-Generate d Referral 11/28/2021 01/12/2022 1 1 Reason Comments Skin Check Reason Comments Post-op Reason Comments Post-op Reason Comments New Patient Visit RIGHT HIPX-RAYS TODA Y Pain RIGHT HIPX-RAYS TODA Y Scheduled Active and Recently Administ ered Medications [...] or prosecute any alcohol or drug abuse patient.[facility] the event this information is protected by the Federal Confidentiality of Alcohol and Drug Abuse Patient Records regulations: The Federal rules restrict any use of the information to criminally investigate or prosecute any alcohol or drug abuse patient.[facility] the event this information is protected by the Federal Confidentiality of Alcohol and Drug Abuse Patient Records regulations: The Federal rules restrict any use of the information to criminally investigate or prosecute any alcohol or drug abuse patient.[facility] the event this information is protected by the Federal Confidentiality of Alcohol and Drug Abuse Patient Records regulations: The Federal rules restrict any use of the information to criminally investigate or prosecute any alcohol or drug abuse patient.[facility] the event this information is protected by the Federal Confidentiality of Alcohol and Drug Abuse Patient Records regulations: The Federal rules restrict any use of the information to criminally investigate or prosecute any alcohol or drug abuse patient.[facility] the event this information is protected by the Federal Confidentiality of Alcohol and Drug Abuse Patient Records regulations: The Federal rules restrict any use of the information to criminally investigate or prosecute any alcohol or drug abuse patient.[facility] the event this information is protected by the Federal Confidentiality of Alcohol and Drug Abuse Patient Records regulations: The Federal rules restrict any use of the information to criminally investigate or prosecute any alcohol or drug abuse patient.[facility] the event this information is protected by the Federal Confidentiality of Alcohol and Drug Abuse Patient Records regulations: The Federal rules restrict any use of the information to criminally investigate or prosecute any alcohol or drug abuse patient.[facility] the event this information is protected by the Federal Confidentiality of Alcohol and Drug Abuse Patient Records regulations: The Federal rules restrict any use of the information to criminally investigate or prosecute any alcohol or drug abuse patient.[facility] the event this information is protected by the Federal Confidentiality of Alcohol and Drug Abuse Patient Records regulations: The Federal rules restrict any use of the information to criminally investigate or prosecute any alcohol or drug abuse patient.[facility] the event this information is protected by the Federal Confidentiality of Alcohol and Drug Abuse Patient Records regulations: The Federal rules restrict any use of the information to criminally investigate or prosecute any alcohol or drug abuse patient.[facility] the event this information is protected by the Federal Confidentiality of Alcohol and Drug Abuse Patient Records regulations: The Federal rules restrict any use of the information to criminally investigate or prosecute any alcohol or drug abuse patient.[facility] the event this information is protected by the Federal Confidentiality of Alcohol and Drug Abuse Patient Records regulations: The Federal rules restrict any use of the information to criminally investigate or prosecute any alcohol or drug abuse patient.[facility] the event this information is protected by the Federal Confidentiality of Alcohol and Drug Abuse Patient Records regulations: The Federal rules restrict any use of the information to criminally investigate or prosecute any alcohol or drug abuse patient.[facility] the event this information is protected by the Federal Confidentiality of Alcohol and Drug Abuse Patient Records regulations: The Federal rules restrict any use of the information to criminally investigate or prosecute any alcohol or drug abuse patient.[facility] the event this information is protected by the Federal Confidentiality of Alcohol and Drug Abuse Patient Records regulations: The Federal rules restrict any use of the information to criminally investigate or prosecute any alcohol or drug abuse patient.[facility] the event this information is protected by the Federal Confidentiality of Alcohol and Drug Abuse Patient Records regulations: The Federal rules restrict any use of the information to criminally investigate or prosecute any alcohol or drug abuse patient.[facility] the event this information is protected by the Federal Confidentiality of Alcohol and Drug Abuse Patient Records regulations: The Federal rules restrict any use of the information to criminally investigate or prosecute any alcohol or drug abuse patient.[facility] the event this information is protected by the Federal Confidentiality of Alcohol and Drug Abuse Patient Records regulations: The Federal rules restrict any use of the information to criminally investigate or prosecute any alcohol or drug abuse patient.[facility]In the event this information is protected by the Federal Confidentiality of Alcohol and Drug Abuse Patient Records regulations: The Federal rules restrict any use of the information to criminally investigate or prosecute any alcohol or drug abuse patient.[facility]In the event this information is protected by the Federal Confidentiality of Alcohol and Drug Abuse Patient Records regulations: The Federal rules restrict any use of the information to criminally investigate or prosecute any alcohol or drug abuse patient.[facility] the event this information is protected by the Federal Confidentiality of Alcohol and Drug Abuse Patient Records regulations: The Federal rules restrict any use of the information to criminally investigate or prosecute any alcohol or drug abuse patient.[facility] the event this information is protected by the Federal Confidentiality of Alcohol and Drug Abuse Patient Records regulations: The Federal rules restrict any use of the information to criminally investigate or prosecute any alcohol or drug abuse patient.[facility]In the event this information is protected by the Federal Confidentiality of Alcohol and Drug Abuse Patient Records regulations: The Federal rules restrict any use of the information to criminally investigate or prosecute any alcohol or drug abuse patient.[facility]In the event this information is protected by the Federal Confidentiality of Alcohol and Drug Abuse Patient Records regulations: The Federal rules restrict any use of the information to criminally investigate or prosecute any alcohol or drug abuse patient.[facility]In the event this information is protected by the Federal Confidentiality of Alcohol and Drug Abuse Patient Records regulations: The Federal rules restrict any use of the information to criminally investigate or prosecute any alcohol or drug abuse patient.[facility]In the event this information is protected by the Federal Confidentiality of Alcohol and Drug Abuse Patient Records regulations: The Federal rules restrict any use of the information to criminally investigate or prosecute any alcohol or drug abuse patient.[facility]In the event this information is protected by the Federal Confidentiality of Alcohol and Drug Abuse Patient Records regulations: The Federal rules restrict any use of the information to criminally investigate or prosecute any alcohol or drug abuse patient.[facility]In the event this information is protected by the Federal Confidentiality of Alcohol and Drug Abuse Patient Records regulations: The Federal rules restrict any use of the information to criminally investigate or prosecute any alcohol or drug abuse patient.[facility] Care Teams (unrecognized sec tion and content) 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 Specialty Start Date End Date Roland Serrano DO PCP - General 09/21/07 Kizzy Galloway RN Specialty Seed Cleaner Operator Radiation Oncology 06/12/21 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 Specialty Start Date End Date Roland Serrano DO PCP - General 09/21/07 [place] [address] [address] [place], [place] [id number] Specialty Seed Cleaner Operator Radiation Oncology 06/12/21 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 Specialty Start Date End Date Roland Serrano DO [facility] - General 09/21/07 [place] [address] [place] [address] Specialty Seed Cleaner Operator Radiation Oncology 06/12/21 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 Specialty Start Date End Date Roland Serrano DO [facility] General 09/21/07 [place] [address] [place] [address] Specialty Seed Cleaner Operator Radiation Oncology 06/12/21 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 Specialty Start Date End Date Roland Serrano DO PCP - General 09/21/07 [place] [address] [place] [address] Specialty Seed Cleaner Operator Radiation Oncology 06/12/21 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 Specialty Start Date End Date Roland Serrano DO PCP - General 09/21/07 Kizzy Galloway [place] [id number] [place] [address] Specialty Seed Cleaner Operator Radiation Oncology 06/12/21 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 Specialty Start Date End Date Roland Serrano DO PCP - General 09/21/07 Kizzy Galloway RN [address] [place] [address] Specialty Seed Cleaner Operator Radiation Oncology 06/12/21 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 Specialty Start Date End Date Roland Serrano DO PCP - General 09/21/07 Kizzy G[place]ay RN [id number] [place] [address] Specialty Seed Cleaner Operator Radiation Oncology 06/12/21 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 Specialty Start Date End Date Roland Serrano DO PCP - General 09/21/07 [place] [address] [place] [address] Specialty Seed Cleaner Operator Radiation Oncology 06/12/21 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 Specialty Start Date End Date Roland Serrano DO PCP - General 09/21/07 [place] [address] [place] [address] Specialty Seed Cleaner Operator Radiation Oncology 06/12/21 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 Specialty Start Date End Date Roland Serrano DO PCP - General 09/21/07 [place] [address] [place] [address] Specialty Seed Cleaner Operator Radiation Oncology 06/12/21 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 Specialty Start Date End Date Roland Serrano DO PCP - General 09/21/07 Kizzy Galloway [place] [id number] [place] [address] Specialty Seed Cleaner Operator Radiation Oncology 06/12/21 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 Specialty Start Date End Date Roland Serrano DO PCP - General 09/21/07 [place] [address] [place] [address] Specialty Seed Cleaner Operator Radiation Oncology 06/12/21 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 Specialty Start Date End Date Roland Serrano DO PCP - General 09/21/07 Kizzy Galloway RN [phone] [place] [address] Specialty Seed Cleaner Operator Radiation Oncology 06/12/21 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 Specialty Start Date End Date Roland Serrano DO PCP - General 09/21/07 [place] [address] [place] [address] Specialty Seed Cleaner Operator Radiation Oncology 06/12/21 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 Specialty Start Date End Date Roland Serrano DO PCP - General 09/21/07 [place] [address] [place], [place] [id number] Specialty Seed Cleaner Operator Radiation Oncology 06/12/21 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 Specialty Start Date End Date Roland Serrano DO PCP - General 09/21/07 Kizzy Galloway RN [phone] [place] [id number] Specialty Seed Cleaner Operator Radiation Oncology 06/12/21 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 Specialty Start Date End Date Roland Serrano DO PCP - General 09/21/07 [place] [address] [place] [address] Specialty Seed Cleaner Operator Radiation Oncology 06/12/21 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 Specialty Start Date End Date Roland Serrano DO PCP - General 09/21/07 Kizzy Galloway RN [phone] [place] [address] Specialty Seed Cleaner Operator Radiation Oncology 06/12/21 Team Status: Active Member [...] May 04, 2024 End: May 04, 2024 Dee Dee Espana APRN LABORATORY SECRETARY-C Attending Provider Act luca Start: May 04, [...] June 29, 2024 End: June 29, 2024 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 Specialty Start Date End Date Roland Serrano DO PCP - General 09/21/07 Kizzy Galloway RN [id number] [place] [id number] Specialty Seed Cleaner Operator Radiation Oncology 06/12/21 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 Specialty Start Date End Date Roland Serrano DO PCP - General 09/21/07 Kizzy Galloway RN [id number] [place] [id number] Specialty Seed Cleaner Operator Radiation Oncology 06/12/21 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 Specialty Start Date End Date Roland Serrano DO PCP - General 09/21/07 Kizzy Galloway RN [address] [place] [address] Specialty Seed Cleaner Operator Radiation Oncology 06/12/21 Kathryn Painter, RN Specialty Seed Cleaner Operator Wearing Apparel Presser Oncology 08/11/24 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 Specialty Start Date End Date Roland Serrano DO PCP - General 09/21/07 [place] [address] [place], [place] [id number] Specialty Seed Cleaner Operator Radiation Oncology 06/12/21 Kathryn Painter, RN Specialty Seed Cleaner Operator Wearing Apparel Presser Oncology 08/11/24 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 Specialty Start Date End Date Roland Serrano MD [address] [place] [address] PCP - General Internal Medicine 02/13/24 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 Specialty Start Date End Date Roland Serrano MD [address] [facility] [place] [address] PCP - General Internal Medicine 02/13/24 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 Specialty Start Date End Date Roland Serrano MD [address] [facility] [place] [address] PCP - General Internal Medicine 02/13/24 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 Specialty Start Date End Date Roland Serrano MD [address] [facility] [place] [address] PCP - General Internal Medicine 02/13/24 [...] November 26, 2024 End: November 26, 2024 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 Specialty Start Date End Date Roland Serrano MD [address] [facility] [place] [address] PCP - General Internal Medicine 02/13/24 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 Specialty Start Date End Date Roland Serrano MD [address] [facility] [place] [id number] PCP - General Internal Medicine 02/13/24 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 Specialty Start Date End Date Roland Serrano DO [address] [place] [address] PCP - General Internal Medicine 12/10/24 Goals (unrecognized section and content) Goals may [...] BE BASED ON THE PRIMARY CLINICAL RECORDS. [employer] [facility]. provides no warranty or guarantee of the accuracy or completeness of information in this document.
--- NOTE | 2024-12-31 12:40 | ED.GENADUL1 ---
HPI HPI - General Adult General Chief complaint: Extremity Injury, Upper Stated complaint: FALL Time Seen by Provider: 12/31/24 11:47 Mode of arrival: walk-in History of Present Illness HPI narrative: Patient is a 64-year-old female who is presenting to the ER with chief complaint of left elbow, forearm, wrist and hand pain after a fall last evening. Patient slipped last evening, falling on the left side of her body. Patient takes no blood thinners. Patient did not hit her head. She has no headache or neck pain. No chest pain or shortness of breath. Patient is having pain around her left elbow, left proximal forearm, and left wrist. No obvious deformities. Patient came in today to rule out fracture. Patient is right-hand dominant. All systems are negative except as noted/marked. All systems reviewed and otherwise negative. Nurses note and vital signs reviewed and patient is not hypoxic. General: The patient appears well and in no apparent distress. Patient is resting comfortably on cart. Patient is not toxic, lethargic, or listless Skin: Warm, dry, no pallor noted. There is no rash noted. No petechiae, purpura. Head: Normocephalic, atraumatic Eye: Normal conjunctiva, no drainage, EOMI. PERRL Ears, Nose, Mouth, and Throat: oral mucosa is moist. Nares patent. Mouth without vesicles. Cardiovascular: Regular Rate and Rhythm, no murmur, gallop, rub Respiratory: Patient is in no distress, no accessory muscle use, lungs are clear to auscultation, no wheezing, rales or rhonchi Back: non-tender, no CVA tenderness bilaterally to percussion. No CT LS midline pain GI: no tenderness to palpation, no masses appreciated. No rebound, guarding, or rigidity noted. No distention Musculoskeletal: Patient has full range of motion of all of the extremities, besides mild to moderate pain pain with flexion extension, abduction adduction of left wrist. Patient has full range of motion of left elbow with supination pronation, flexion extension with minimal pain., Patient has mild tenderness to palpation to soft tissue of proximal left forearm. Full range of motion of left shoulder no difficulty. No bony tenderness to palpation to left hand. No motor, sensory, or focal neurological deficits Neurological: A&O x4, normal speech Psychiatric: Cooperative Related Data Home Medications ?Medication ?Instructions ?Recorded ?Confirmed carvedilol 25 mg tablet mg 01/18/24 venlafaxine 150 mg mg PO 01/18/24 capsule,extended release 24 hr Previous Rx's ?Medication ?Instructions ?Recorded oxycodone-acetaminophen 5 mg-325 1 tab PO Q8H PRN pain #7 tabs 01/18/24 mg tablet (Percocet) Allergies Allergy/AdvReac Type Severity Reaction Status Date / Time No Known Drug Allergies Allergy Verified 01/18/24 18:48 Opioid HPI Opioid Management Most Recent Opioid Data: Last Pain Scale 8 01/18/24 18:50 01/18/24 PFSH PFSH Social History Smoking status: Never smoker Little interest or pleasure in doing things: not at all Feeling down, depressed, or hopeless: not at all Exam Constitutional Vital Signs, click to edit/add: Last Vital Signs Temp 98.2 F 12/31/24 11:18 Pulse 94 H 12/31/24 11:18 Resp 18 12/31/24 11:18 BP 141/91 12/31/24 11:18 Pulse Ox 99 12/31/24 11:18 O2 Del Method Room Air 12/31/24 11:18 Course Vital Signs Vital signs: Vital Signs Temperature 98.2 F 12/31/24 11:18 Pulse Rate 94 H 12/31/24 11:18 Respiratory Rate 18 12/31/24 11:18 Blood Pressure 141/91 12/31/24 11:18 Pulse Oximetry 99 12/31/24 11:18 Oxygen Delivery Method Room Air 12/31/24 11:18 Temperature 98.2 F 12/31/24 11:18 Pulse Rate 94 H 12/31/24 11:18 Respiratory Rate 18 12/31/24 11:18 Blood Pressure 141/91 12/31/24 11:18 Pulse Oximetry 99 12/31/24 11:18 Oxygen Delivery Method Room Air 12/31/24 11:18 Medical Decision Making MDM Narrative Medical decision making narrative: Patient's left elbow x-ray and left wrist x-ray shows no fracture dislocation or acute abnormality. Patient was given ice. Patient will alternate Tylenol Motrin at home for pain. Patient was given a left wrist Velcro splint along with a sling only to use for 2 or 3 days for left elbow pain. Patient will follow-up with PCP if no improvement next week. No questions at discharge. Procedure note: Patient was placed in a left Velcro wrist splint and a left arm sling. Splint was assisted with . the patient was neurovascularly intact before and after the splint was placed. the affected bones/injured area had proper alignment in a splint. Education on splint care at home was given at bedside. Patient and family have no questions at discharge. Discharge Plan Discharge Chief Complaint: Extremity Injury, Upper Clinical Impression: Left wrist sprain, Wrist pain, left, Contusion of elbow, left, Pain in left forearm, Fall Patient Disposition: Home, Self-Care Time of Disposition Decision: 12:38 Condition: Fair Prescriptions / Home Meds: No Action carvedilol 25 mg tablet venlafaxine 150 mg capsule,extended release 24hr PO oxycodone-acetaminophen [Percocet] 5-325 mg tablet 1 tab PO Q8H PRN (Reason: pain) Qty: 7 0RF Print Language: Irish Instructions: Wrist Injury (ED), Contusion in Adults (ED), P.R.I.C.E. Treatment (ED), Wrist Sprain (ED) Additional Instructions: Only use your arm sling for 2 or 3 days to help resting comfort Wear your wrist splint for the next 3 to 5 days, only take it off for ice and shower. Alternate Tylenol and either Motrin, Advil, or ibuprofen every 4 hours to help with pain. Maximum dose of Tylenol is 3000 mg a day. Maximum dose of either Motrin, Advil, or ibuprofen is 2400 mg a day. Use ice 20 minutes on, 20 minutes off, do not use heat. Follow-up with PCP for further testing or therapy if needed. Referrals: Roland Brown DO [Primary Care Provider] - 1 week Discharge Date/Time: 12/31/24 12:50
== END 2024-12-31 12:50 | disposition home or self-care (01) ==
PROVIDERS: Emergency Provider Emergency Medicine; PCP Internal Medicine
DX: S50.02XA Contusion of left elbow, initial encounter (principal); S63.502A Unspecified sprain of left wrist, initial encounter; M79.632 Pain in left forearm; W01.0XXA Fall on same level from slipping, tripping and stumbling without subsequent striking against object, initial encounter; M25.532 Pain in left wrist
CPT/HCPCS: 73080; 73110; 99284

== ENCOUNTER 2025-01-04 14:25 | Outpatient (OUT) | payer BC, SELFPAY ==
--- OUTSIDE RECORDS SUMMARY | 2025-01-04 14:38 | XMS_ITS | CCD ---
Author Organization [facility] Care Team Providers Care Grounds And Nursery Specialist Name Role Phone Roland Serrano DO Primary Care Provider [phone] ROLAND SERRANO Primary Care Unavailable MAYRA MICHEL [...] Unavaila ble MELODY MENA Attending Unavailable MAGGIE, ROLADN E Primary Care Unavailable RACHELHENRY Lr Referring [...] Attending Unavailable RACHELHENRY Lr Referring Unavailable Roland Serrano MD Primary Care Provider JR. LAURA, MARY [...] or physicia Propensity to adverse reactions Comment:Done [employer] Other (6 sources) Allergies Reconciled Propensity to adverse reactions Unknown [employer] Other Medications Current Medications Medication Drug Class(es) [...] needed for pain. Do not exceed 3-4g/24hr. [id number] 200 actuat albuterol 0.09 mg/actuat metered dose [...] (20 sources) alpha-Adrenergic Alisa, beta-Adrenergic Alisa Start: 11-30-2024 take 1 tablet [...] a day for 10 days Feb, Active THGY2-DOW-DNQ-FISH OIL-L.CASEI ORAL (20 sources) KDKI2-UEA-FIH-FI SH OIL-L.CASEI ORAL Take by mouth once daily. Active ZKVW8-QSF-HFD-FI SH OIL-L.CASEI ORAL Take by mouth once daily. 0 Active Comment on above: Take by mouth once d aily. perflutren lipid microspheres 1.3 mL in NaCl (PF) 0.9% 10 mL injection (DEFINITY) (19 sources) Start: 06-27-2023 End: 09-25-2024 perflutren lipid microspheres 1.3 mL in NaCl (PF) 0.9% 10 mL injection (StarCardITY) Probiotic - (20 sources) Start: 08-14-2018 Probiotic [...] Start: 07-08-2024 take 1 capsule by mo [facility] once daily at mealtime Venlafaxine 150 mg [...] hours as needed for pain Hydrocodone-Acetami nophen ([place]) 5-325 mg tablet Discontinued 1 - 2 [...] capsule by mouth once daily Iron Ps Juqyzwq-W75-Qzary Acid (Poly-Iron 150 Forte) 150-25-1 mg-mcg-mg capsule [...] tablet by mouth daily 0 06/13/2021 Active [place] 5-Akr-Ddv-Fish Oil (Fish Oil) 1,000 mg (120 mg-180 mg) Capsule (2 sources) Start: 10-15-2021 End: 11-01-2021 take 1 capsule by mouth twice daily [place] 0-Oyj-Nhb-Fish Oil (Fish Oil) 1,000 mg (120 mg-180 mg) Capsule Discontinued 1 CAP PO Twice daily October 15, 2021 12:00am November 01, 2021 8:04pm Start: 10-15-2021 End: 11-01-2021 take 1 capsule by mouth twice daily [place] 4-Sxf-Zme-Fish Oil (Fish Oil) 1,000 mg (120 mg-180 mg) Capsule Discontinued 1 CAP PO Twice daily October 15, 2021 1:00am November 01, 2021 9:04pm [place] 3-Hxx-Ejx-Fish Oil (Fish Oil) 60-90-500 mg Capsule (2 sources) Start: 09-06-2020 End: 08-20-2021 take 1 capsule by mouth once daily [place] 1-Act-Tvz-Fish Oil (Fish Oil) 60-90-500 mg Capsule Discontinued 1 CAP PO Daily September 05, 2020 11:00pm August 20, 2021 10:26am Start: 09-06-2020 End: 08-20-2021 take 1 capsule by mouth once daily [place] 5-Eht-Dpa-Fish Oil (Fish Oil) 60-90-500 mg Capsule Discontinued [...] mouth 0 06/21/2021 Active polyethylene glycol 3350 753217 mg / potassium chloride 2970 mg / sodium bicarbonate 6740 mg / sodium chloride 5860 mg / sodium sulfate 53322 mg powder for oral solution (1 source) [...] VIEWS INDICATION: Signs/Symptoms:PAIN. COMPARISON: None ACCESSION NUMBER(S): [id number] ORDERING CLINICIAN: EDWARD BARROS FINDINGS: Right total hip arthroplasty without fracture, malalignment, or periprosthetic lucency. IMPRESSION: Satisfactory appearance right total hip arthroplasty. Signed by: Kobe Garcia 12/11/2024 4:40 PM Dictation workstation: [id number] [facility] Laboratory - Chemistry and C hemistry - challengeon 11-01-2024 Free T4 [Mass/Vol] 0.68 ng/dL Low 0.76-1.46 [facility] TSH Qn 0.781 m[IU]/L 0.358-3.740 [facility] XR Hip - right 3 Viewson [...] dislocation. Impression: Unremarkable right total hip arthroplasty. [facility] Radiology Study observation (narrative) [facility] Laboratory - Chemistry and C hemistry - challengeon 09-15-2024 Free T4 [Mass/Vol] 0.45 ng/dL Low 0.76-1.46 [facility] TSH Qn 0.131 m[IU]/L Low 0.358-3.740 [facility] No Panel Informationon 09-15 Total Triiodothyronine 78 ng/dL 71-180 [facility] Comment on above: Performed at: [address], [place] [id number] Director: Alex Morse PhD, Phone: [phone] Vaishnavi 08-18-2024 DEBORA Telephone (BHAVNA) ISABEL WADDELL ([id number]) 1960 F Date Time Provider Department 08/18/24 [...] mg by mouth daily at bedtime. - LQCM7-NJN-OZO-FISH OIL-L.CASEI ORAL Take by mouth once daily. [...] Status:Closed by ERNESTO CHACKO on 08/18/24 Normal [facility] HIGH RISK HUMAN PAPILLOMA RADHA (HPV), PCR FOR DETECTION AND GENOTYPINGOrdered By: Myron Sadler on 08-16-2024 HPV 16 Ag Ql (Unsp spec) Indeterminate Abnormal Not detected [facility] HPV 18 Ag Ql (Unsp spec) Indeterminate Abnormal Not detected [facility] HPV 31+33+35+39+45+51+52+5 6+58+59+66+68 DNA ANGELA+probe Ql (Cvx) Indeterminate Abnormal Not detected [facility] Comment on above: High Risk HPV Other Type includes HPV types 31, 33, 35, 39, 45, 51, 52, 56, 58, 59, 66 and 68. Interpretation and review of laboratory results Abnormal [facility] Indeterminate despit e repeat testing, likely due to suboptimal collection or amplification inhibition. Recommend submitting a new specimen for testing if clinically indicated. This test was developed and its performance characteristics determined by [facility]'s Myron Shetty [facility] [place] ([facility]). It has not been cleared or approved by the FDA. [facility] is regulated under CLIA as qualified to perform high-complexity testing. This test is used for clinical purposes. It should not be regarded as investigational or for research. [facility] No Panel InformationOrdered By: Brice Cervantes on 08-16-2024 [facility] Work Phone: PAP TESTOrdered By: Brice mckeon on 08-16-2024 Case Report Gynecologic Cytology Report Case: [id number] Authorizing Provider: Ernesto Chacko APRN.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 DIRECTOR Collected: 08/05/2024 01:17 PM Ordering Location: Gynecology Oncology Received: 08/05/2024 07:53 PM First Screen: Silvia Lr CT, ASCP Pathologist: Brice Cervantes MD Specimen: Pap Test, ThinPrep, Vagina [facility] Work Phone: Clinical History Abnormal Bleeding (Describe) Hysterectomy, Total [facility] Work Phone: Gross Description a6gwrCVyIZNdhVHFJPA5 MD DkQL1xoSxniXz6eNsuDUZe ttE0fMRrBFodu3pbDFE7t2 xstoERJsrtLNEjCY3kLUok FBNrDH3kPyQjKKNiDsQeOC BhcGVydzEyMjQwXHBhcGVy rPS4IYHmAQ4gpfmxFTdlKX awAMWqniF3HRMdwMPpR6Il MPWuHU5poljtFLR5ZFYVDm xoTu6rwRFazWuuLfGsEfLy WARzBONxHGZrj4bhyrNLia ygdUh0iY7RQEGdD8HuBG9G j0tpPDFvzCItKKO3ASpmu7 rxJMoqMLA5ZBPgIAMjHOOi AA4SHoWjTPvaHDT7AGc0Cc A9RNr9OUZDRSPsLHO0CBP5 OODdMLi4GZmrXHnitANwDW FaZNYxNQJvTJecqoZ0i6wu OGPhaHTcAZH0QGivd3sbLO mtNNY9CLAnKiZgONQkWC8Q UpBhEPgjMNE9WBx0ZjG1HD h2CIQZZkGrKgZsKOq5MJw1 ADBvUOo6EWd4YNjCEyQmTu c4IEChUDqrXWW6WYAjZECf XHQgMiBcXHNzIDMgXFxmbC YfSL3waFolUKFqGK3KRVKk UIzoGHCbNcQfPU4lEwGloB 7fSMd6kfNuIVPupvEELrte FFPdBP1TFCKxXFvzNSd9oc BdUBVxSuSaZUTiO74nh0NN r8ZaXQ5NERp2nmBcgyUXHm xmczIwIEdsYWNpYWwgQWNl dGljIEFjaWQgYWRkZWQuXH BhciANClxzYTMwXGVwaWNY p3XlRCUQEnkfbHpuMwGfeI HgYaM8GTZnzRRqKFR6XB4q eMryJQYdS8VeT7GzlyK9RL MggxUTSxndGNPoAB2JRGTf MjIgDQp9 [facility] Work Phone: HPV Reflex Yes HPV [facility] Work Phone: Interpretation Unable to perform interpretation due to unsatisfactory specimen. [facility] Work Phone: Pap Disclaimer o5rlyPAzBUVlt3vjVAGc bG FuZzEwMzNcZnRuYmpcdWMx DFhbzqLtLEltv8VeS2QtIs AwMFxhbnNpXGRlZmxhbmcx RZIrZBT7wfUcMMCuLLlrKR IuDUgbMo4apSBdaAwnIbYt RAMwp9uugpLRaemejHm6k2 wzRTHdDnO5wHZzAXyxP0fc ckTpiXGgHREsZCu6wQ28IB RttM9rjAIbWMevdpLqOvD8 HFmvVCVtMzY1IGHeeYXhFI JwD5ghTYDcXQneICDmAFwf cKAdXLP2pLmns9W3gINkiZ JcyUecZlIxYyXjHxKKa3Ek IGa5qZlsB6WzDSUzJeW2aT QgUGFyYWdyYXBoIEZvbnQ7 lG39KQkbxxA1rFCfb7Qfq3 4xm590tR2nqDEkWMP9CKRe HOHifDHzXHQvGLT4EEZrbM IoT7thIFQwVB9eordiMYem EDsqETSlrNV2SEQkzPGdX5 OhUWIsCZpfIQYwjmi6PmBb Oy4tpBWwpKoyBEhzo9kpp2 cztILfYgm9NOIbYoNnAdwg YQwol9Epa6vtUFLucj9zCH I7lYWdjEgsh9G4gQKzLYZh mDLaxqYlLCWhXfV5LWikFZ 4cwr05FXRyEYC4dj2quNAp yHkitnFrzBWpVMzqH0AkME Khl793JPXxR9DvOZOzn0I4 ncSxOwGjPSVoxMC3zeV7XY BdPZw3jWPfdnQ9lfPqbKOr Q3xzjM2xRBKgCW2wvepxr8 nkJPshEJhmBJAbaHV9mlS5 MFZnwPLrB8PxdL4xMRTtNB bqERFwqir3LwUgCo3alXVe eTcyMFxzYmtwYWdlXHBnbm NvbnRccGduZGVjXHBsYWlu XHBsYWluXGYwXGZzMjRccW ppmDgmoR8dGyLdWaDoXuqk YN3aIJFbW1xrfLZfUTBoWP FtU9skSmWbsG6acHmbKDyk pkQ8RXByUTLAZGEyN98lHY LwyLMdITNtL4TaTR7vipoi mULgaZQvt9YaI8SzqyjzGH obS4AnX3BxHuOsBkSrk0Bz poVfJRNbqnJqtmMvvBl0yj UoB1E2cbR0yGYaDBQbjZWw T4XfJB5fojiwsEQngIJmEC DfaFmtz9v4vX0jHUGbFTTy ZWVkIGZvciByZXNjcmVlbm uwJhHbtAKfTULkgL4qtjPq ZCBpbnRlcnZhbHMsIGFuZC CabXwoxIFhiJZax4XeQWik gBvglt1utKagqH6dKsJfGj FwBwrpHZ2zEZFaP0jvlRZx AXAwNCQhC8noOnTlsA5cxZ pvHCvmhgMwOPKgdj95 [facility] Work Phone: Performing Lab o8qumBBnHDZsn3zyKVBl bG FuZzEwMzNcZnRuYmpcdWMx IHtccnRmMVxhbnNpXGRlZm zffjsuZPCwYMP3rrCjQBTx ICZ0SES6QxIzp9Y7HHOwHy JsERMiXY1nwQpfHBWaRI6e PRRrT3sjyF1mlly1IlGoDX CaSvQ2TPNbtpY8Pex5XFDo PCxhu4xox8KnRTQjXQl2nA blYzIeQJWbi7flxzJrRhZq YOVyKDGbKGMzeSCfA948p5 vhk3sgshEksIJ6SALeICX2 EWtqdiCtumH8FZeekTCdXe P6UUnqfsWjMKteweWuwgNf Dnm6AHFfS157CYL7oAwrn2 yfUAN7HMGzZYXvBgOuUw2k nVBbA199TBCkXJNZBDMznP d1SJLifqEkinHdsDGAq235 M588n7gyDHKpuuPxjZvYwc unc4prB927LOYrrCAkdtEz RtHgCVUwySMgaMV3ELMkQE 4qqpvqTEbtDXkeHMJjzpT5 KCVryRWgL9DjUISzEU4iyf xrORQ5OTigAFQcHNT5VhZb JCRra2Bgrpb1PjMiiy3vzo 91XGG8z6RwjVgsFFW2XCY6 BvQwRf4vwQBtIRAdBJ8eAo RxsMDlNGJsup95iFiyFOat jsOrhD5lRwOtRBZwhKKxTP VqJH2khDKtKDAnqM3cdnnb XHBnYnJkcmhlYWRccGdicm GqLe4zdDnlUEG5NHcvV1ri vM4pVzD2UQtbA4mjtU0iBR z0ERxjuMP7BBQksH8xCZ8i bxaqy5pmTThaFGgmWPJrwr E9ymB5DLCwoHOwP9CimW1j MDAxVG6ysfiiy8hiTVO0EK iiQTGsBXZ6DeGvCQNsq5Hy zwn7ThUdh8SuaCYsCSuoE3 5xg766QCVwdvWmS4ybtNTd yuryaMKaawfzKVjizoZ3JD FsXHBsYWluXGYxXGZzMjJc bGFuZzEwMzNcaGljaFxmMV dbQcAnXJRcNGurZ5hjAmNe ZnMyMiBUZWNobmljYWwgY2 4crG5lRJ67JMTopGYjpSAl nX8mfB2mmSN4HVWrqjFsuf egRwGqUGEeq0NgVMLcFMNh P8glojJoFE7pXWRjoO0gCj wgOTUwMCBFdWNsaWQgQXZl QANXlSA9QIujweJwC1zjBS QxOTUgICBDTElBIyAzNkQw BuO3SFb4BDVpmc12x2fmvQ YxXHNzdGVjZjIyMDAwXGFu g9wqESFoqRJaVqRcCrNuJb IwPwgnxVItIQYuNrYpg1ek r114bGStk9etZPWcBcW3yT JuPDWrqFRtF645ISHiBWlj i3dva7EaLFMmvFRsq1T5QQ VTduxqkMn8jWcaC39ib4A6 EhgvE7nlYIUfEWAiZ0FjXC 5dFPSeEor4TCR2LHZ7FNHj YKTdJ9KpVC0cZTLkmVTpHQ b1b5adaVzeCPZkQSI0z6yk JQvnheOyLY2cbk4ihZa4r3 xjczEgRGVmYXVsdCBQYXJh I6PjjJhtHj1ryIr7vQzhVo qwCYB0Wzg0VJ5psg53ici0 kLeeFSWmjziiSbD1HBwxCT ZwjduzABy2FHjuCOGsoPY2 VZMsmTQtD6AnQIxiFZ3cfn m7RUK5RQfpWODvVlH9AVBg cPQmFBTexEdoKGtby127TE M0UsWyZD1vA9Eec4J6vK1l aXRcZGVmdGFiNzIwXGZvcm 4ksVVvMCdyz9HmZEY0mlH5 yROyuYEhNZZzTM62Wynxh7 McDqrfv0GkQ69ijSY8ZBhi o2ucOF9aCnS0xdHpAAmzk1 vagT4gGsB4DOgeYW0xZW0l PMXeqV3wntaaZOPkNiVgxx wyOWCwaBrzwvYwIx4kaCxd TSH8UFcfD5rrdE4yKwZ1OL bqY3xaaM4yDSo8BYzzxZB3 HKAxzL2yJC6yrbhrj4wrPX uvBGpvQEGpbwL4hlToJCXn uQToL1ItdX1zSCMzZA6cbr kmo8phBFR8YWzoSODsDQT2 PxIiTRCrr1Nbwyv4XlTqz2 DhfBPkKSvsK04gq179GHMb xjJjV6fluXMihbtxyVTfia kyBExlxbU2ZLTzRKRpCLpu XGYxXGZzMjBcbGFuZzEwMz NcaGljaFxmMVxkYmNoXGYx FPteM9omSsFhXtIcJUFMhD Tdrr8vmZxxWJqmdWZyqKGw dIA5qH3sAXAoduUnlz0pJN BbcDZWlKR7EFxfaiNqT6cb xzthPTQ9PAVvKEI9Q5tqYN BBdmUsIENsZXZlbGFuZCBP WMF4TGX1CBAbNWTDBJRoMH E8GGQ0ZVNgIPWcfJAgPTFh clxwYXJkXHBsYWluXGYwXG JcMqBquBdylU3fNfRdZuHn NBlpXM1sMPUuD0iagYTdGE HqUYBiV4xnBxClyZ9sxNks MVxjZjJcZnMyMFxsdHJjaC FPUZVimuB3o0J8SMnngPLa blxmMVxmczIwXGxhbmcxMD BcGRlkW9xwKbUaUPIbyItl RAmul3QuBYXhAADoRgMmRB ejIIN7y5X3FUfsnIMzenHS MnCFDO2opQQljbkeDP0HAs xwbGFpblxmMVxmczIyXGxh jcgdAAOjOOkdV0oiGxJfLR LziJjeSLzkb8BrEQWdRUKv MjJccGFyfX0= [facility] Work Phone: CNOVSPon 08-05-2024 CNOVSP Visit (SP) Office (BHAVNA) ISABEL WADDELL ([id number]) 1960 F Date Time Provider Department 08/05/24 11:10 AM HENRY RAMOS During your visit today, we recorded the following information about you: Temperature Pulse Blood pressure Weight 99 degrees 81/minute 141/75 67.1 kg Height 1.676 m Henry Ramos MD 08/16/2024 12:41 PM Signed Gynecologic Oncology [facility] Follow up visit Date of service: 08/05/2024 [...] differentiation, FIGO grade 2. Neg LVSI, 13% IA pT1a (IA): Tumor limited to endometrium or invades less than 1/2 of the myometrium 05/25/2021 Vaginal biopsy Vagina, biopsy - Consistent with endometrioid adenocarcinoma (see comment). GZ/ka 05/28/2021 COMMENT The tumor cells are diffusely and strongly positive for immunohistochemical stain for Shushan 8, supporting the above diagnosis. The patient [...] by mouth daily at bedtime. Disp: Rfl: ITNH7-MXV-UBX-FISH OIL-L.CASEI ORALTake by mouth once daily.Disp: Rfl: Lactobac no.41/Bifidobact no.7 (PROBIOTIC-10 ORAL)Take by mouth onc (more content not included)... Normal [facility] HIGH RISK HUMAN PAPILLOMA RADHA (HPV), PCR FOR DETECTION AND GENOTYPINGon 08-05-2024 HPV 16 Ag Ql (Unsp spec) Indeterminate Abnormal Not detected [facility] Comment on above: Order Comment: Speci men Type: FLUID SPECIMENOrdering Facility: [facility] Address: [address] [place] [address] Performed By: #### H PVHRT, [id number] ####[facility] LABCLIA [id number] [place] [address] [place] HPV 18 Ag Ql (Unsp spec) Indeterminate Abnormal Not detected [facility] Comment on above: Order Comment: Speci men Type: FLUID SPECIMENOrdering Facility: [facility] Address: [address] [place] [address] Performed By: #### H PVHRT, [id number] ####[facility] LABCLIA [id number] [place] [address] [place] HPV 31+33+35+39+45+51+52+5 6+58+59+66+68 DNA ANGELA+probe Ql (Cvx) Indeterminate Abnormal Not detected [facility] Comment on above: Order Comment: Speci men Type: FLUID SPECIMENOrdering Facility: [facility] Address: [address] [place] [address] Result Comment: High Risk HPV Other Type includes HPV types 31, 33, 35, 39, 45, 51, 52, 56, 58, 59, 66 and 68. Performed By: #### H PVHRT, [id number] ####[facility] LABCLIA [id number] [place] [address] [place] PAP TESTon 08-05-2024 ADEQUACY Normal [facility] Comment on above: Order Comment: Speci men Type: FLUID SPECIMENOrdering Facility: [facility] Address: [address] [place] [address] Result Comment: Unsa tisfactory for evaluation. Limited cellularity. Performed By: #### H PVHRT, [id number] ####[facility] LABCLIA [id number] [place] [address] [place] CASE REPORT Normal [facility] Comment on above: Order Comment: Speci men Type: FLUID SPECIMENOrdering Facility: [facility] Address: [address] [place] [address] Result Comment: Gyne cologic Cytology Report Case: [id number] Authorizing Provider: Ernesto Chacko APRN.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 DIRECTOR Collected: 08/05/2024 01:17 PM Ordering Location: Gynecology Oncology Received: 08/05/2024 07:53 PM First Screen: Adeline, Silvia, CT, ASCP Pathologist: Brice Cervantes MD Specimen: Pap Test, ThinPrep, Vagina Performed By: #### H SANTOS, [id number] ####[facility] LABCLIA [id number] [place] [address] [place] CLINICAL HISTORY, CYTOLOGY, SYRUPER Normal [facility] Comment on above: Order Comment: Speci men Type: FLUID SPECIMENOrdering Facility: [facility] Address: [address] [place] [address] Result Comment: Abno rmal Bleeding (Describe) Hysterectomy, Total Performed By: #### H SANTOS, [id number] ####[facility] LABCLIA [id number] [place] [address] [place] FINAL PERFORMING LAB Normal [facility] Comment on above: Order Comment: Speci men Type: FLUID SPECIMENOrdering Facility: [facility] Address: [address] [place] [address] Result Comment: Tech nical component, work car operator screening performed at [facility], [address] [place] [address] CLIA# [id number] Diagnostic interpretation performed at [facility], [address] [place] [address] CLIA# [id number] Licensed Weigher: Anant Dumont M.D. Performed By: #### H SANTOS, [id number] ####[facility] LABCLIA [id number] [place] [address] [place] GROSS DESCRIPTION A. Vagina Normal [facility] Comment on above: Order Comment: Speci men Type: FLUID SPECIMENOrdering Facility: [facility] Address: [address] [place] [address] Result Comment: Glac ial Acetic Acid added. Performed By: #### H PVHRT, [id number] ####[facility] LABCLIA [id number] [id number] [address] [place] HPV REFLEX Yes HPV Normal [facility] Comment on above: Order Comment: Speci men Type: FLUID SPECIMENOrdering Facility: [facility] Address: [address] [place] [address] Performed By: #### H PVHRT, [id number] ####[facility] LABCLIA [id number] [place] [address] [place] INTERPRETATION, CYTOLOGY, SYRUPER Normal [facility] Comment on above: Order Comment: Speci men Type: FLUID SPECIMENOrdering Facility: [facility] Address: [address] [place] [address] Result Comment: Unab le to perform interpretation due to unsatisfactory specimen. Performed By: #### H PVHRT, [id number] ####[facility] LABCLIA [id number] [place] [address] [place] PAP DISCLAIMER COMMENT The Pap Smear is a screening test for cervical cancer. False negative results occur with all screening tests, emphasizing the need for rescreening at recommended intervals, and clinical correlation. Normal [facility] Comment on above: Order Comment: Speci men Type: FLUID SPECIMENOrdering Facility: [facility] Address: [address] [place] [address] Performed By: #### H PVHRT, [id number] ####[facility] LABCLIA [id number] [place] [address] [place] Laboratory - Chemistry and C hemistry - challengeon 06-25-2024 Free T4 [Mass/Vol] 1.58 ng/dL High 0.76-1.46 [facility] No Panel Informationon 06-25 Thyroid Stimulating Hormone 3rd Gen <0.007 u[iU]/mL Low 0.358-3.740 [facility] Total Triiodothyronine 199 ng/dL Abnormal 71-180 [facility] Comment on above: Performed at: [place] [id number] Director: Alex Morse PhD, Phone: [phone] Laboratory - Chemistry and C hemistry - challengeon 05-19-2024 Free T4 [Mass/Vol] 2.49 ng/dL High 0.76-1.46 [facility] No Panel Informationon 05-19 Thyroid Stimulating Hormone 3rd Gen <0.007 u[iU]/mL Low 0.358-3.740 [facility] Total Triiodothyronine 271 ng/dL Abnormal 71-180 [facility] Comment on above: Performed at: [facility] [id number] [place], [place] [id number] Director: Alex Morse PhD, Phone: [phone] Thyroid stimulating immunogl obulin (TSI) measurementon 05-19-2024 Thyroid stimulating immunoglobulins actual/normal (S) [Relative mass conc] 3.57 IU/L Abnormal 0.00-0.55 [facility] Comment on above: Performed at: [facility] [employer] [address] [id number] Director: Betty Montiel MD, Phone: [phone] No Panel InformationOrdered By: Dee Dee Espana on 05-04-2024 Quick Strep (POC) [facility] Basophils Auto (Bld) [#/Vol] on 05-03-2024 Basophils (Bld) [#/Vol] 0.0 10 3/uL 0.0-0.1 [facility] Basophils/100 WBC Auto (Bld) on 05-03-2024 Basophils/100 WBC (Bld) 0.2 % 0.2-2.0 [facility] Eosinophils/100 WBC Auto (Bl d)on 05-03-2024 Eosinophils/100 WBC (Bld) 5.4 % 0.9-7.0 [facility] Erythrocyte distribution wid th Auto (RBC) [Ratio]on 05-03-2024 Erythrocyte distribution width (RBC) [Ratio] 12.7 % 11.0-15.0 [facility] Hematocrit Auto (Bld) [Volum e fraction]on 05-03-2024 Hematocrit (Bld) [Volume fraction] 40.6 % 36.0-48.0 [facility] Hemoglobin [Mass/volume] in Bloodon 05-03-2024 Hemoglobin (Bld) [Mass/Vol] 13.1 g/dL 12.0-16.0 [facility] Iron binding capacity [Mass/ volume] in Serum or Plasmaon 05-03-2024 Iron binding capacity [Mass/Vol] 279.0 ug/dL 250.0-450.0 [facility] Iron saturation [Mass Fracti on] in Serum or Plasmaon 05-03-2024 Iron saturation [Mass fraction] 14.0 % [facility] Laboratory - Chemistry and C hemistry - challengeon 05-03-2024 Ferritin [Mass/Vol] 128.0 ng/mL 8.0-252.0 [facility] Free T4 [Mass/Vol] 2.46 ng/dL High 0.76-1.46 [facility] Iron [Mass/Vol] 39.0 ug/dL Low 50.0-170.0 [facility] Laboratory - Hematology and Cell countson 05-03-2024 Immature granulocytes/100 WBC (Bld) 0.2 % 0.0-0.5 [facility] Leukocytes [#/volume] correc katherine for nucleated erythrocytes in Blood by Automated counon 05-03-2024 WBC corrected for nucl RBC Auto (Bld) [#/Vol] 4.3 10 3/uL 4.0-11.0 [facility] Lymphocytes Auto (Bld) [#/Vo l]on 05-03-2024 Lymphocytes (Bld) [#/Vol] 1.3 10 3/uL 1.2-3.8 [facility] Lymphocytes/100 WBC Auto (Bl d)on 05-03-2024 Lymphocytes/100 WBC (Bld) 29.7 % 20.5-60.0 [facility] MCH Auto (RBC) [Entitic mass ]on 05-03-2024 MCH (RBC) [Entitic mass] 29.2 pg 26.7-34.0 [facility] MCHC Auto (RBC) [Mass/Vol]on 05-03-2024 MCHC (RBC) [Mass/Vol] 32.3 g/dL 29.9-35.2 [facility] MCV Auto (RBC) [Entitic vol] on 05-03-2024 MCV (RBC) [Entitic vol] 90.4 fL 81.0-99.0 [facility] Monocytes Auto (Bld) [#/Vol] on 05-03-2024 Monocytes (Bld) [#/Vol] 0.5 10 3/uL 0.3-0.8 [facility] Monocytes/100 WBC Auto (Bld) on 05-03-2024 Monocytes/100 WBC (Bld) 11.0 % 1.7-12.0 [facility] Neutrophils Auto (Bld) [#/Vo l]on 05-03-2024 Neutrophils (Bld) [#/Vol] 2.3 10 3/uL 1.4-6.5 [facility] Neutrophils/100 WBC Auto (Bl d)on 05-03-2024 Neutrophils/100 WBC (Bld) 53.5 % 43.0-75.0 [facility] No Panel Informationon 05-03 Eosinophils # (Auto) 0.2 10 3/uL 0.0-0.7 [facility] Immature Granulocyte # (Auto) 0.01 10 3/uL 0.00-0.03 [facility] Thyroid Stimulating Hormone 3rd Gen <0.007 u[iU]/mL Low 0.358-3.740 [facility] Platelet mean volume Auto (B ld) [Entitic vol]on 05-03-2024 Platelet mean volume (Bld) [Entitic vol] 9.6 fL 9.5-13.5 [facility] Platelets Auto (Bld) [#/Vol] on 05-03-2024 Platelets (Bld) [#/Vol] 192 10 3/uL 150-450 [facility] RBC Auto (Bld) [#/Vol]on RBC (Bld) [#/Vol] 4.49 10 6/uL 4.20-5.40 [facility] CNOVon 09-29-2023 CNOV Office Visit (CORSMN ) ISABEL WADDELL ([id number]) 1960 F Date Time Provider Department 09/29/23 [...] mg by mouth daily at bedtime. - [id number] OIL-L.CASEI ORAL Take by mouth once daily. [...] [D64.89] 09/02 (more content not included)... Normal [facility] ANES POSTPROC EVALon 023 ANES POSTPROC EVAL HNO ID: [id number] Author: Kobe Garcia MD Service: ? Author Type: Anesthesiologist Type: Anesthesia Postprocedure Evaluation Filed: 09/02/2023 10:38 AM Note Text: POST ANESTHESIA EVALUATION NOTE : 1960 Procedure Summary Date: 09/02/23 Room / [facility] [address] [facility] Start: 745 Anesthesia Stop: 925 [...] September 02, 2023 TIME: 10:37 AM CSN: [id number] Normal [facility] ANES PRE-OPon 09-02-2023 ANES PRE-OP HNO ID: [id number] Author: Kobe Garcia MD Service: ? Author Type: Anesthesiologist Type: Anesthesia Preprocedure Evaluation Filed: 09/02/2023 8:30 AM Note Text: ANESTHESIOLOGY DAY OF SURGERY NOTE : 1960 Procedure Information Date/Time: 09/02/23729 Procedures: EXAM UNDER ANESTHESIA RECTAL (Anus) SIGMOIDOSCOPY FLEXIBLE (Colon Sigmoid) ANOSCOPY W/ CONTROL OF BLEEDING- Formalin treatment (Anus) Location: [facility] Surgeons: [place] DO [...] 1,000 mg by mouth once daily. - [id number] OIL-L.CASEI ORAL Take by mouth once daily. [...] on 06/27/2023 (more content not included)... Normal [facility] ANES PREOPon 09-02-2023 ANES PREOP HNO ID: [id number] Author: Kobe Garcia MD Service: Anesthesiology Author Type: Anesthesiologist Type: Anesthesia PreOp Filed: 09/02/2023 7:05 AM Note Text: Healthy except for FAP. Appropriately NPO, denies reflux, no history of anesthesia problems. Reviewed in fathers presence. MP1, no airway concerns, ASA2, Plan for GA with LMA. Has braces, tight , no loose teeth. Normal [facility] BRIEF OP NOTon 09-02-2023 BRIEF OP NOT HNO ID: [id number] Author: Milagro Sanchez MD Service: Colorectal Author Type: Physician Type: Brief Op Note Filed: 09/02/2023 8:57 AM Note Text: BRIEF OPERATIVE NOTE - COLORECTAL SURGERY Log ID: [id number] Surgery/Procedure Date: 09/02/2023 Incision/Procedure Start Time: 8:01 AM Incision Close/Procedure End Time: 8:51 AM Surgeon(s) and Roaster Operator(s): Surgeon(s) and Role: * [place] [...] September 02, 2023 TIME: 8:56 AM Normal [facility] CNDSon 09-02-2023 CNDS HNO ID: [id number] Author: Ricardo White PA-C Service: Colorectal Author Type: Physician Roaster Operator Type: Discharge Summary Filed: 09/02/2023 2:06 [...] [facility] [address] Saba's office at [phone] to make an appointment. Transitions of Care [...] capsule Commonly (more content not included)... Normal [facility] Hematocrit Auto (Bld) [Volum e fraction]on 09-02-2023 Hematocrit (Bld) [Volume fraction] 27.4 % Low 36.0-46.0 [facility] Comment on above: Order Comment: Speci men Type: BLOOD SPECIMENOrdering Facility: [facility] Address: [address] [place] [address] Performed By: #### 4 544-3, 718-7 ####[facility] [id number] [address] [place] Hgb Bld-mCncon 09-02-2023 Hemoglobin (Bld) [Mass/Vol] 7.5 g/dL Low 11.5-15.5 [facility] Comment on above: Order Comment: Speci maria esther Type: BLOOD SPECIMENOrdering Facility: [facility] Address: [address] [place] [address] Performed By: #### 4 544-3, 718-7 ####[facility] [id number] [address] [place] OPERATIVE NOon 09-02-2023 OPERATIVE NO HNO ID: [id number] Author: [place] DO Service: Colorectal Author Type: Physician Type: Operative Report Filed: 09/10/2023 7:14 AM Note Text: OPERATIVE REPORT PATIENT NAME: Isabel Waddell LOG ID: [id number] SURGERY DATE: 09/02/2023 INCISION/PROCEDURE START TIME: 8:01 AM INCISION CLOSE/PROCEDURE END TIME: 8:51 AM PREOPERATIVE DIAGNOSIS: Radiation proctitis, anemia, history of endometrial adenocarcinoma POSTOPERATIVE DIAGNOSIS: Radiation proctitis, anemia, history of endometrial adenocarcinoma OPERATION PERFORMED: Flexible sigmoidoscopy, exam under anesthesia, topical application of formalin to the rectum for treatment of radiation proctitis SURGEON: [place] DO RETAIL DISTRICT MANAGER: Milagro Sanchez MD. no qualified residents [...] Saba, DO, FACS, FASCRS Colorectal Surgery Normal [facility] TYPE + SCREENon 09-02-2023 ABO O Normal [facility] Comment on above: Order Comment: Speci men Type: BLOOD SPECIMENOrdering Facility: [facility] Address: [address] [place] [address] Performed By: #### T SCR ####CC MAIN BLOOD BANKCLIA [id number] [address] [place] [facility] HISTORICAL AB SCR STATUS Negative Normal [facility] Comment on above: Order Comment: Speci men Type: BLOOD SPECIMENOrdering Facility: [facility] Address: [address] [place] [address] Performed By: #### T SCR ####CC MAIN BLOOD BANKCLIA [id number] [place] [address] [place] Rh Nom (Bld) Positive Normal [facility] Comment on above: Order Comment: Speci men Type: BLOOD SPECIMENOrdering Facility: [facility] Address: [address] [place] [address] Performed By: #### T SCR ####CC MAIN BLOOD BANKCLIA [id number] [place] [address] [place] TYPE AND SCREEN EXPIRATION 09/05/2023 23:59 Normal [facility] Comment on above: Order Comment: Speci men Type: BLOOD SPECIMENOrdering Facility: [facility] Address: [address] [place] [address] Performed By: #### T SCR ####[facility] BLOOD BANKIA [id number] [place] [address] [place] CBC W Auto Differential pane l (Bld)on 08-29-2023 Basophils (Bld) [#/Vol] 10*3/uL Normal <0.11 [facility] Comment on above: Order Comment: Speci men Type: BLOOD SPECIMENOrdering Facility: [facility] Address: [address] [place] [address] Performed By: #### 5 7021-8 ####[facility] LABCLIA [id number] [place] [address] [place] Basophils/100 WBC (Bld) 0.7 % Normal [facility] Comment on above: Order Comment: Speci men Type: BLOOD SPECIMENOrdering Facility: [facility] Address: [address] [place] [address] Performed By: #### 5 7021-8 ####[facility] LABCLIA [id number] [place] [address] [place] Differential cell count method Nom (Bld) Auto Normal [facility] Comment on above: Order Comment: Speci men Type: BLOOD SPECIMENOrdering Facility: [facility] Address: [address] [place] [address] Performed By: #### 5 7021-8 ####[facility] LABCLIA [id number] [place] [address] [place] Eosinophils (Bld) [#/Vol] 0.18 10*3/uL Normal <0.46 [facility] Comment on above: Order Comment: Speci men Type: BLOOD SPECIMENOrdering Facility: [facility] Address: [address] [place] [address] Performed By: #### 5 7021-8 ####[facility] LABCLIA [id number] [place] [address] [place] Eosinophils/100 WBC (Bld) 5.9 % Normal [facility] Comment on above: Order Comment: Speci men Type: BLOOD SPECIMENOrdering Facility: [facility] Address: [address] [place] [address] Performed By: #### 5 7021-8 ####[facility] LABCLIA [id number] [place] [address] [place] Erythrocyte distribution width (RBC) [Ratio] 22.0 % High 11.5-15.0 [facility] Comment on above: Order Comment: Speci men Type: BLOOD SPECIMENOrdering Facility: [facility] Address: [address] [place] [address] Performed By: #### 5 7021-8 ####[facility] LABCLIA [id number] [place] [address] [place] Hematocrit (Bld) [Volume fraction] 26.0 % Low 36.0-46.0 [facility] Comment on above: Order Comment: Speci men Type: BLOOD SPECIMENOrdering Facility: [facility] Address: [address] [place] [address] Performed By: #### 5 7021-8 ####[facility] LABCLIA [id number] [place] [address] [place] Hemoglobin (Bld) [Mass/Vol] 7.0 g/dL Low 11.5-15.5 [facility] Comment on above: Order Comment: Speci men Type: BLOOD SPECIMENOrdering Facility: [facility] Address: [address] [place] [address] Performed By: #### 5 7021-8 ####[facility] LABCLIA [id number] [place] [address] [place] Immature granulocytes (Bld) [#/Vol] 10*3/uL Normal <0.10 [facility] Comment on above: Order Comment: Speci men Type: BLOOD SPECIMENOrdering Facility: [facility] Address: [address] [place] [address] Performed By: #### 5 7021-8 ####[facility] LABCLIA [id number] [place] [address] [place] Immature granulocytes/100 WBC (Bld) 0.0 % Normal [facility] Comment on above: Order Comment: Speci men Type: BLOOD SPECIMENOrdering Facility: [facility] Address: [address] [place] [address] Performed By: #### 5 7021-8 ####[facility] LABIA [id number] [place] [address] [place] Lymphocytes (Bld) [#/Vol] 1.20 10*3/uL Normal 1.00-4.00 [facility] Comment on above: Order Comment: Speci men Type: BLOOD SPECIMENOrdering Facility: [facility] Address: [address] [place] [address] Performed By: #### 5 7021-8 ####[facility] LABIA [id number] [place] [address] [place] Lymphocytes/100 WBC (Bld) 39.1 % Normal [facility] Comment on above: Order Comment: Speci men Type: BLOOD SPECIMENOrdering Facility: [facility] Address: [address] [place] [address] Performed By: #### 5 7021-8 ####[facility] LABIA [id number] [place] [address] [place] MCH (RBC) [Entitic mass] 17.9 pg Low 26.0-34.0 [facility] Comment on above: Order Comment: Speci men Type: BLOOD SPECIMENOrdering Facility: [facility] Address: [address] [place] [address] Performed By: #### 5 7021-8 ####[facility] LABCLIA [id number] [id number] [address] [place] MCHC (RBC) [Mass/Vol] 26.9 g/dL Low 30.5-36.0 [facility] Comment on above: Order Comment: Speci men Type: BLOOD SPECIMENOrdering Facility: [facility] Address: [address] [place] [address] Performed By: #### 5 7021-8 ####[facility] LABCLIA [id number] [place] [address] [place] MCV (RBC) [Entitic vol] 66.3 fL Low 80.0-100.0 [facility] Comment on above: Order Comment: Speci men Type: BLOOD SPECIMENOrdering Facility: [facility] Address: [address] [place] [address] Performed By: #### 5 7021-8 ####[facility] LABCLIA [id number] [place] [address] [place] Monocytes (Bld) [#/Vol] 0.40 10*3/uL Normal <0.87 [facility] Comment on above: Order Comment: Speci men Type: BLOOD SPECIMENOrdering Facility: [facility] Address: [address] [place] [address] Performed By: #### 5 7021-8 ####[facility] LABCLIA [id number] [place] [address] [place] Monocytes/100 WBC (Bld) 13.0 % Normal [facility] Comment on above: Order Comment: Speci men Type: BLOOD SPECIMENOrdering Facility: [facility] Address: [address] [place] [address] Performed By: #### 5 7021-8 ####[facility] LABCLIA [id number] [place] [address] [place] Neutrophils (Bld) [#/Vol] 1.27 10*3/uL Low 1.45-7.50 [facility] Comment on above: Order Comment: Speci men Type: BLOOD SPECIMENOrdering Facility: [facility] Address: [address] [place] [address] Performed By: #### 5 7021-8 ####[facility] LABIA [id number] [place] [address] [place] Neutrophils/100 WBC (Bld) 41.3 % Normal [facility] Comment on above: Order Comment: Speci men Type: BLOOD SPECIMENOrdering Facility: [facility] Address: [address] [place] [address] Performed By: #### 5 7021-8 ####[facility] LABCLIA [id number] [place] [address] [place] Nucleated RBC (Bld) [#/Vol] 10*3/uL Normal <0.01 [facility] Comment on above: Order Comment: Speci men Type: BLOOD SPECIMENOrdering Facility: [facility] Address: [address] [place] [address] Performed By: #### 5 7021-8 ####[facility] LABIA [id number] [place] [address] [place] Nucleated RBC/100 WBC (Bld) [Ratio] 0.0 /100 WBC Normal [facility] Comment on above: Order Comment: Speci men Type: BLOOD SPECIMENOrdering Facility: [facility] Address: [address] [place] [address] Performed By: #### 5 7021-8 ####[facility] LABIA [id number] [place] [address] [place] Platelet mean volume (Bld) [Entitic vol] 9.6 fL Normal 9.0-12.7 [facility] Comment on above: Order Comment: Speci men Type: BLOOD SPECIMENOrdering Facility: [facility] Address: [address] [place] [address] Performed By: #### 5 7021-8 ####[facility] LABIA [id number] [place] [address] [place] Platelets (Bld) [#/Vol] 266 10*3/uL Normal 150-400 [facility] Comment on above: Order Comment: Speci men Type: BLOOD SPECIMENOrdering Facility: [facility] Address: [address] [place] [address] Performed By: #### 5 7021-8 ####[facility] LABCLIA [id number] [place] [address] [place] RBC (Bld) [#/Vol] 3.92 10*6/uL Normal 3.90-5.20 [facility] Comment on above: Order Comment: Speci men Type: BLOOD SPECIMENOrdering Facility: [facility] Address: [address] [place] [address] Performed By: #### 5 7021-8 ####[facility] LABCLIA [id number] [place] [address] [place] WBC (Bld) [#/Vol] 3.07 10*3/uL Low 3.70-11.00 [facility] Comment on above: Order Comment: Speci men Type: BLOOD SPECIMENOrdering Facility: [facility] Address: [address] [place] [address] Performed By: #### 5 7021-8 ####[facility] LABCLIA [id number] [place] [address] [place] CNOVon 08-29-2023 CNOV Office Visit (HOMERO ) ISABEL WADDELL ([id number]) 1960 F Date Time Provider Department 08/29/23 [...] team about CBC once drawn. Elder Galan APRN.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 DIRECTOR Pelvic Floor Colorectal Surgery Risk of morbidity, mortality and/or complications of treatment plan: high Referring Provider: SOUTH SABA [[id number]] Allergies As of Allen (more content not included)... Normal [facility] CNOV Office Visit (PMNA11 ) ISABEL WADDELL ([id number]) 1960 F Date Time Provider Department 08/29/23 10:00 AM HEIDI MENARD PMNA11 During your visit today, we recorded the following information about you: Temperature Pulse Respiration Blood pressure 98 degrees 82/minute 16/minute 157/77 Weight 66.7 kg Heidi Menard MD 08/29/2023 1:08 PM Signed Ms. Waddell is a 63 year old female who presents to the [facility] [place]. 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 Normal [facility] Comprehensive metabolic 2000 panelon 08-29-2023 Albumin [Mass/Vol] 3.9 g/dL Normal 3.9-4.9 [facility] Comment on above: Order Comment: Speci men Type: BLOOD SPECIMENOrdering Facility: [facility] Address: [address] [place] [address] Performed By: #### 2 4323-8 ####[facility] LABIA [id number] [place] [address] [place] ALP [Catalytic activity/Vol] 164 U/L High 34-123 [facility] Comment on above: Order Comment: Speci men Type: BLOOD SPECIMENOrdering Facility: [facility] Address: [address] [place] [address] Performed By: #### 2 4323-8 ####[facility] LABIA [id number] [place] [address] [place] ALT [Catalytic activity/Vol] 45 U/L High 7-38 [facility] Comment on above: Order Comment: Speci men Type: BLOOD SPECIMENOrdering Facility: [facility] Address: [address] [place] [address] Performed By: #### 2 4323-8 ####[facility] LABCLIA [id number] [place] [address] [place] Anion gap [Moles/Vol] 10 mmol/L Normal 9-18 [facility] Comment on above: Order Comment: Speci men Type: BLOOD SPECIMENOrdering Facility: [facility] Address: [address] [place] [address] Performed By: #### 2 4323-8 ####[facility] LABCLIA [id number] [place] [address] [place] AST [Catalytic activity/Vol] 48 U/L High 13-35 [facility] Comment on above: Order Comment: Speci men Type: BLOOD SPECIMENOrdering Facility: [facility] Address: [address] [place] [address] Performed By: #### 2 4323-8 ####[facility] LABCLIA [id number] [place] [address] [place] Bilirubin [Mass/Vol] 0.3 mg/dL Normal 0.2-1.3 [facility] Comment on above: Order Comment: Speci men Type: BLOOD SPECIMENOrdering Facility: [facility] Address: [address] [place] [address] Performed By: #### 2 4323-8 ####[facility] LABCLIA [id number] [place] [address] [place] Calcium [Mass/Vol] 9.5 mg/dL Normal 8.5-10.2 [facility] Comment on above: Order Comment: Speci men Type: BLOOD SPECIMENOrdering Facility: [facility] Address: [address] [place] [address] Performed By: #### 2 4323-8 ####[facility] LABCLIA [id number] [place] [id number] [place] Chloride [Moles/Vol] 107 mmol/L High 97-105 [facility] Comment on above: Order Comment: Speci men Type: BLOOD SPECIMENOrdering Facility: [facility] Address: [address] [place] [address] Performed By: #### 2 4323-8 ####[facility] LABCLIA [id number] [place] [address] [place] CO2 [Moles/Vol] 24 mmol/L Normal 22-30 [facility] Comment on above: Order Comment: Speci men Type: BLOOD SPECIMENOrdering Facility: [facility] Address: [address] [place] [address] Performed By: #### 2 4323-8 ####[facility] LABIA [id number] [address] STATES OF [facility] Creatinine [Mass/Vol] 0.61 mg/dL Normal 0.58-0.96 [facility] Comment on above: Order Comment: Speci men Type: BLOOD SPECIMENOrdering Facility: [facility] Address: [address] [place] [address] Performed By: #### 2 4323-8 ####[facility] LABIA [id number] [address] Creatinine and Glomerular filtration rate.predicted panel (S/P/Bld) 101 mL/min/1.73m??? Normal >=60 [facility] Comment on above: Order Comment: Speci men Type: BLOOD SPECIMENOrdering Facility: [facility] Address: [address] [place] [address] Result Comment: Kae mated Glomerular Filtration Rate [...] actual GFR. Performed By: #### 2 4323-8 ####[facility] LABCLIA [id number] [place] [address] [place] Glucose [Mass/Vol] 94 mg/dL Normal 74-99 [facility] Comment on above: Order Comment: Speci men Type: BLOOD SPECIMENOrdering Facility: [facility] Address: [address] [place] [address] Result Comment: The [place] Diabetes Association (ADA) provides guidance for cutoff [...] Standards of Medical Care in Diabetes 2016, [place] [employer] Association. Diabetes Care. 2016.39(Suppl 1). Performed By: #### 2 4323-8 ####[facility] LABIA [id number] [place] [address] [place] Potassium [Moles/Vol] 4.5 mmol/L Normal 3.7-5.1 [facility] Comment on above: Order Comment: Speci men Type: BLOOD SPECIMENOrdering Facility: [facility] Address: [address] [place] [address] Performed By: #### 2 4323-8 ####[facility] LABIA [id number] [place] [address] [place] Protein [Mass/Vol] 6.4 g/dL Normal 6.3-8.0 [facility] Comment on above: Order Comment: Speci men Type: BLOOD SPECIMENOrdering Facility: [facility] Address: [address] [place] [address] Performed By: #### 2 4323-8 ####[facility] LABIA [id number] [place] [address] [place] Sodium [Moles/Vol] 141 mmol/L Normal 136-144 [facility] Comment on above: Order Comment: Speci men Type: BLOOD SPECIMENOrdering Facility: [facility] Address: [address] [place] [address] Performed By: #### 2 4323-8 ####[facility] LABCLIA [id number] [place] [address] [place] Urea nitrogen [Mass/Vol] 13 mg/dL Normal 7-21 [facility] Comment on above: Order Comment: Speci men Type: BLOOD SPECIMENOrdering Facility: [facility] Address: [place] [address] Performed By: #### 2 4323-8 ####[facility] LABCLIA [id number] [address] [place] ECG COMPLETEon 08-29-2023 ECG COMPLETE Ventricular Rate : 7 6 BPM Atrial Rate : 76 BPM P-R Interval : 194 ms QRS Duration : 82 ms Q-T Interval : 392 ms QTC Calculation(Bazett) : 441 ms Calculated P [place] : 22 degrees Calculated R [place] : 58 degrees Calculated T [place] : 43 degrees NORMAL SINUS RHYTHM POSSIBLE LEFT ATRIAL ENLARGEMENT LEFT VENTRICULAR HYPERTROPHY ABNORMAL ECG Confirmed by MING MITCHELL MD ([id number]) on 09/02/2023 9:46:08 PM NAME : ISABEL WADDELL PID : [id number] : 1960 Gender : Female Race : ORD : [id number] Procedure Date : Aug 29 2023 13:01:41 Edit Date : Sep 02 2023 21:46:10 Diagnosis: NORMAL SINUS RHYTHM POSSIBLE LEFT ATRIAL ENLARGEMENT LEFT VENTRICULAR HYPERTROPHY ABNORMAL ECG Confirmed by MING MITCHELL MD ([id number]) on 09/02/2023 9:46:08 PM Test Reason : Location : 119 : A17 A17 Overread By : MING MITCHELL MD Edited By : MING MITCHELL MD Referred By : SOUTH SABA Acquired by : YASMIN AVILA [facility] ECHOon 08-29-2023 Echocardiography Echocardiography Report: Transthoracic Echo [facility] GUNNAR-2 Date of service: 08/29/2023 1:42:07 PM KEEPER Ordering physician: MIKE THOMPSON Indication: Shortness of [...] * * Final * * * [employer] Medical Image : [id number] Normal [facility] HISTORY PHYSICALon 3 HISTORY PHYSICAL HNO ID: [id number] Author: Elder Galan APRN.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 DIRECTOR Service: ? Author Type: Nurse Practitioner Type: [...] and/or complications of treatment plan: high Normal [facility] TYPE + SCREENon 08-29-2023 ABO group Nom (Bld) O [facility] Blood group antibody screen Ql Negative [facility] HIstorical Ab Scr Status Negative [facility] Rh Nom (Bld) Positive [facility] Type and Screen Expiration 09/01/2023 23:59 [facility] ABO O Normal [facility] Comment on above: Order Comment: Speci men Type: BLOOD SPECIMENOrdering Facility: [facility] Address: [address] [place] [address] Performed By: #### T SCR ####CC MAIN BLOOD BANKCLIA [id number] [address] HISTORICAL AB SCR STATUS Negative Normal [facility] Comment on above: Order Comment: Speci men Type: BLOOD SPECIMENOrdering Facility: [facility] Address: [address] [place] [address] Performed By: #### T SCR ####CC MAIN BLOOD BANKCLIA [id number] [address] OF [facility] Rh Nom (Bld) Positive Normal [facility] Comment on above: Order Comment: Speci men Type: BLOOD SPECIMENOrdering Facility: [facility] Address: [address] [place] [address] Performed By: #### T SCR ####CC MAIN BLOOD BANKCLIA [id number] [address] TYPE AND SCREEN EXPIRATION 09/01/2023 23:59 Normal [facility] Comment on above: Order Comment: Speci men Type: BLOOD SPECIMENOrdering Facility: [facility] Address: [address] [place] [address] Performed By: #### T SCR ####CC MAIN BLOOD BANKCLIA [id number] [place] [id number], [place] [address] [place] XR CHEST 2V [...] the thoracic spine. IMPRESSION: See Result. Management Developer: DANA Transcribe Date/Time: Aug 29 2023 9:55A Dictated by : KRYSTIAN MULTANI MD This examination was interpreted and the report reviewed and electronically signed by: KRYSTIAN MULTANI MD on Aug 29 2023 9:57AM EST [id number] Normal [facility] CT CHEST WO IVCONon 08-22-20 CT [...] wall is unremarkable. Upper abdomen: Prior cholecystectomy. Beeswax Bleacher (topogram) images: No additional findings. IMPRESSION: 1. No convincing findings of interstitial lung disease. There is excessive dynamic collapse of mainstem bronchi. 2. Unchanged scattered calcified granulomas. No suspicious lung nodules. Management Developer: [facility] Transcribe Date/Time: Aug 22 2023 8:56A Dictated by : RICHARD LOVELACE MD This examination was interpreted and the report reviewed and electronically signed by: RICHARD LOVELACE MD on Aug 22 2023 9:01AM EST [id number] Normal [facility] Comprehensive metabolic 2000 panelon 07-05-2023 Albumin [Mass/Vol] 4.0 g/dL 3.9 - 4.9 g/dL [facility] ALP [Catalytic activity/Vol] 161 U/L High 34 - 123 U/L [facility] ALT [Catalytic activity/Vol] 47 U/L High 7 - 38 U/L [facility] Anion gap [Moles/Vol] 11 mmol/L 9 - 18 mmol/L [facility] AST [Catalytic activity/Vol] 41 U/L High 13 - 35 U/L [facility] Bilirubin [Mass/Vol] 0.3 mg/dL 0.2 - 1 .3 mg/dL [facility] Calcium [Mass/Vol] 9.5 mg/dL 8.5 - 10. 2 mg/dL [facility] Chloride [Moles/Vol] 105 mmol/L 97 - 10 5 mmol/L [facility] CO2 [Moles/Vol] 26 mmol/L 22 - 30 mmol/L [facility] Creatinine [Mass/Vol] 0.74 mg/dL 0.58 - 0.96 mg/dL [facility] Estimated Glomerular Filtration Rate 91 mL/min/1.73m >=60 mL/min/1.73m [facility] Glucose [Mass/Vol] 104 mg/dL High 74 - 99 mg/dL [facility] Potassium [Moles/Vol] 4.5 mmol/L 3.7 - 5.1 mmol/L [facility] Protein [Mass/Vol] 6.3 g/dL 6.3 - 8.0 g/dL [facility] Sodium [Moles/Vol] 142 mmol/L 136 - 144 mmol/L [facility] Urea nitrogen [Mass/Vol] 16 mg/dL 7 - 21 mg/dL [facility] CBC W Auto Differential pane l (Bld)on 07-04-2023 Basophils (Bld) [#/Vol] 0.03 10*3/uL <0.11 k/uL [facility] Basophils/100 WBC (Bld) 0.9 % [facility] Differential cell count method Nom (Bld) Auto [facility] Eosinophils (Bld) [#/Vol] 0.16 10*3/uL <0.46 k/uL [facility] Eosinophils/100 WBC (Bld) 4.9 % [facility] Erythrocyte distribution width (RBC) [Ratio] 19.9 % High 11.5 - 15.0 % [facility] Hematocrit (Bld) [Volume fraction] 25.1 % Low 36.0 - 46.0 % [facility] Hemoglobin (Bld) [Mass/Vol] 7.1 g/dL Low 11.5 - 15.5 g/dL [facility] Immature granulocytes (Bld) [#/Vol] <0.10 k/uL [facility] Immature granulocytes/100 WBC (Bld) 0.3 % [facility] Lymphocytes (Bld) [#/Vol] 1.12 10*3/uL 1.00 - 4.00 k/uL [facility] Lymphocytes/100 WBC (Bld) 34.6 % [facility] MCH (RBC) [Entitic mass] 19.2 pg Low 26.0 - 34.0 pg [facility] MCHC (RBC) [Mass/Vol] 28.3 g/dL Low 30.5 - 36.0 g/dL [facility] MCV (RBC) [Entitic vol] 67.8 fL Low 80.0 - 100.0 fL [facility] Monocytes (Bld) [#/Vol] 0.49 10*3/uL <0.87 k/uL [facility] Monocytes/100 WBC (Bld) 15.1 % [facility] Neutrophils (Bld) [#/Vol] 1.43 10*3/uL Low 1.45 - 7.50 k/uL [facility] Neutrophils/100 WBC (Bld) 44.2 % [facility] Nucleated RBC (Bld) [#/Vol] <0.01 k/uL [facility] Nucleated RBC/100 WBC (Bld) [Ratio] 0.0 /100 WBC [facility] Platelet mean volume (Bld) [Entitic vol] 9.8 fL 9.0 - 12.7 fL [facility] Platelets (Bld) [#/Vol] 304 10*3/uL 150 - 400 k/uL [facility] RBC (Bld) [#/Vol] 3.70 10*6/uL Low 3.90 - 5.2 0 m/uL [facility] WBC (Bld) [#/Vol] 3.24 10*3/uL Low 3.70 - 11. 00 k/uL [facility] HEMOGLOBINon 03-21-2023 Hemoglobin (Bld) [Mass/Vol] 9.1 g/dL Critically low 12.0-16.0 [facility] Comment on above: Performed By: #### H GB ####[facility] [address] [place], [place] [address]Bp. Cheryl Monzon XR CHEST 2 Von 03-10-2023 [...] 2. Hyperexpanded lungs. Electronically authenticated by: HENRY OLCK Date: 2023-03-10 13:57 Normal [facility] Covid-19 PCR (CVDTB)on SARS-CoV-2 (COVID-19) RNA ANGELA+probe Ql (Unsp spec) Not detected Normal NOT DETECTED [facility] Comment on above: Result Comment: [...] for this test is supported by the [place] [employer] and Human Service's declaration that [...] used). Performed By: #### C VDTBH #### [facility] [address] [place] [address] Dr. Cheryl Monzon INFLUENZA A AND B AGon 01-20 [facility] SEE BELOW Normal [facility] Comment on above: Result Comment: Nega tive for Flu A protein angiten. Infection due to Flu A cannot be ruled out. Flu A angiten in the sample may be below the detection limit of the test. Performed By: #### I NFLUAB #### [facility] [address] [place] [address] Dr. Cheryl [facility] Normal [facility] Comment on above: Result Comment: Nega tive for Flu B protein antigen. Infection due to Flu B cannot be ruled out. Flu B antigen in the sample may be below the detection limit of the test. Performed By: #### I NFLUAB #### [facility] [address] [place] [address] Dr. Cheryl Monzon INFLUENZA A AG Negative Normal NEGATIVE SEE COMMENT [facility] Comment on above: Performed By: #### I NFLUAB #### [facility] [address] [address] [address] Cheryl Monzon INFLUENZA B AG Negative Normal NEGATIVE SEE COMMENT [facility] Comment on above: Performed By: #### I NFLUAB #### [facility] [address] [address] [address] Cheryl Monzon FERRITIN BLDon 01-04-2023 Ferritin [Mass/Vol] 14.2 ng/mL Low 14.7 - 2 05.1 ng/mL [facility] Iron and Iron binding capaci ty panelon 01-04-2023 Iron [Mass/Vol] 77 ug/dL 41 - 186 ug/[facility] Iron binding capacity [Mass/Vol] 382 ug/dL 232 - 386 ug/dL [facility] Iron/TIBC [Molar ratio] 20.2 % 15.0 - 57.0 % [facility] CBC W Auto Differential pane l (Bld)on 01-03-2023 Basophils (Bld) [#/Vol] <0.11 k/uL [facility] Basophils/100 WBC (Bld) 0.4 % [facility] Differential cell count method Nom (Bld) Auto [facility] Eosinophils (Bld) [#/Vol] 0.14 10*3/uL <0.46 k/uL [facility] Eosinophils/100 WBC (Bld) 3.1 % [facility] Erythrocyte distribution width (RBC) [Ratio] 13.0 % 11.5 - 15.0 % [facility] Hematocrit (Bld) [Volume fraction] 35.4 % Low 36.0 - 46.0 % [facility] Hemoglobin (Bld) [Mass/Vol] 11.5 g/dL 11.5 - 15.5 g/dL [facility] Immature granulocytes (Bld) [#/Vol] <0.10 k/uL [facility] Immature granulocytes/100 WBC (Bld) 0.2 % [facility] Lymphocytes (Bld) [#/Vol] 1.31 10*3/uL 1.00 - 4.00 k/uL [facility] Lymphocytes/100 WBC (Bld) 29.0 % [facility] MCH (RBC) [Entitic mass] 30.0 pg 26.0 - 34.0 pg [facility] MCHC (RBC) [Mass/Vol] 32.5 g/dL 30.5 - 36.0 g/dL [facility] MCV (RBC) [Entitic vol] 92.4 fL 80.0 - 100.0 fL [facility] Monocytes (Bld) [#/Vol] 0.50 10*3/uL <0.87 k/uL [facility] Monocytes/100 WBC (Bld) 11.1 % [facility] Neutrophils (Bld) [#/Vol] 2.53 10*3/uL 1.45 - 7.50 k/uL [facility] Neutrophils/100 WBC (Bld) 56.2 % [facility] Nucleated RBC (Bld) [#/Vol] <0.01 k/uL [facility] Nucleated RBC/100 WBC (Bld) [Ratio] 0.0 /100 WBC [facility] Platelet mean volume (Bld) [Entitic vol] 9.9 fL 9.0 - 12.7 fL [facility] Platelets (Bld) [#/Vol] 235 10*3/uL 150 - 400 k/uL [facility] RBC (Bld) [#/Vol] 3.83 10*6/uL Low 3.90 - 5.2 0 m/uL [facility] WBC (Bld) [#/Vol] 4.51 10*3/uL 3.70 - 11. 00 k/uL [facility] Covid-19 PCR ([facility])on SARS-CoV-2 (COVID-19) RNA ANGELA+probe Ql (Unsp spec) Not detected Normal NOT DETECTED [facility] Comment on above: Result Comment: [...] for this test is supported by the [place] [employer] and Human Service's declaration that [...] used). Performed By: #### C VDTB #### [facility] [address] [place] [address] Dr. Cheryl Monzon INFLUENZA A AND B AGon 11-19 [facility] SEE BELOW Normal [facility] Comment on above: Result Comment: Nega tive for Flu A protein angiten. Infection due to Flu A cannot be ruled out. Flu A angiten in the sample may be below the detection limit of the test. Performed By: #### I NFLUAB #### [facility] [address] [place] [address] Dr. Cheryl Mon[facility] Normal [facility] Comment on above: Result Comment: Nega tive for Flu B protein antigen. Infection due to Flu B cannot be ruled out. Flu B antigen in the sample may be below the detection limit of the test. Performed By: #### I NFLUAB #### [facility] [address] [place] [address] Dr. Cheryl Monzon INFLUENZA A AG Negative Normal NEGATIVE SEE COMMENT [facility] Comment on above: Performed By: #### I NFLUAB #### [facility] [address] [place] [address] Dr. Cheryl Monzon INFLUENZA B AG Negative Normal NEGATIVE SEE COMMENT [facility] Comment on above: Performed By: #### I NFLUAB #### [facility] [address] [place] [address] Dr. Cheryl Monzon MG MAMM SCREEN 3D RAGHU CADon 10-04-2022 MG MAMM SCREEN 3D RAGHU CAD Patient: ISABEL WADDELL Exam Date: 10/04/2022 : 1960 Gender:F Ordering : DR ROLAND SERRANO D.O. Admission #: [id number] Family : Order #: [id number] CLICK HERE TO VIEW EXAM RADIOLOGY REPORT [...] Treatments radiation-hysterectomy Family Cancers None LOCATION: [facility] BREAST COMPOSITION: Scattered areas fibroglandular [...] MD on 10/04/2022 at 13:53 Normal [facility] COLONOSCOPY (THERAPEUTIC)on 09-26-2022 [facility] T3, TOTAL (TRIIODOTHYRONINE) on 09-05-2022 T3, TOTAL 132 ng/dL Normal 71-180 [facility] Comment on above: Performed By: #### T 3TOTAL ####[facility] [address] [place], [place] [address]Dr. Cheryl Monzon CBC AUTO DIFFon 09-04-2022 BASO # 0.0 103/ul Normal 0.0-0.1 [facility] Comment on above: Performed By: #### C BC ####[facility] [address] [place], [place] [address]Dr. Cheryl Monzon Basophils/100 WBC (Bld) 0.4 % Normal 0.2-2.0 [facility] Comment on above: Performed By: #### C BC ####[facility] [address] [place] [address]Dr. Cheryl Monzon EO # 0.1 103/ul Normal 0.0-0.7 [facility] Comment on above: Performed By: #### C BC ####[facility] [address] [place], [place] [address]Dr. Cheryl Monzon Eosinophils/100 WBC (Bld) 4.9 % Normal 0.9-7.0 [facility] Comment on above: Performed By: #### C BC ####[facility] [address] [place] [address]Dr. Chreyl Monzon Erythrocyte distribution width (RBC) [Ratio] 12.8 % Normal 11.0-15.0 [facility] Comment on above: Performed By: #### C BC ####[facility] [address] [place], [place] [address]Dr. Cheryl Monzon Hematocrit (Bld) [Volume fraction] 36.7 % Normal 36.0-48.0 [facility] Comment on above: Performed By: #### C BC ####[facility] [address] [place], [place] [address]Dr. Cheryl Monzon Hemoglobin (Bld) [Mass/Vol] 11.8 g/dL Critically low 12.0-16.0 [facility] Comment on above: Performed By: #### C BC ####[facility] [address] [place], [place] [address]Dr. Cheryl Monzon IG # 0.01 10e3/ul Normal 0.00-0.03 [facility] Comment on above: Performed By: #### C BC ####[facility] [address] [place], [place] [address]Dr. Cheryl Monzon IG % 0.4 % Normal 0.0-0.5 [facility] Comment on above: Performed By: #### C BC ####[facility] [address] [place], [place] [address]Dr. Cheryl Monzon LYMPH # 0.8 103/ul Critically low 1.2-3.8 [facility] Comment on above: Performed By: #### C BC ####[facility] [address] [place], [place] [address]Dr. Cheryl Monzon Lymphocytes/100 WBC (Bld) 28.6 % Normal 20.5-60.0 [facility] Comment on above: Performed By: #### C BC ####[facility] [address] [place], [place] [address]Dr. Cheryl Monzon MANUAL DIFF REQ NO Normal [facility] Comment on above: Performed By: #### C BC ####[facility] [address] [place] [address]Dr. Cheryl Monzon MCH (RBC) [Entitic mass] 30.7 pg Normal 26.7-34.0 [facility] Comment on above: Performed By: #### C BC ####[facility] [address] [place] [address]Dr. Cheryl Monzon MCHC (RBC) [Mass/Vol] 32.2 g/dL Normal 29.9-35.2 [facility] Comment on above: Performed By: #### C BC ####[facility] [address] [place] [address]Dr. Lissettalden Monzon MCV (RBC) [Entitic vol] 95.6 fL Normal 81.0-99.0 [facility] Comment on above: Performed By: #### C BC ####[facility] [address] [place], [place] [address]Dr. Cheryl Monzon MONO # 0.3 103/ul Normal 0.3-0.8 [facility] Comment on above: Performed By: #### C BC ####[facility] [address] [place], [place] [address]Dr. Lissettalden Monzon Monocytes/100 WBC (Bld) 11.7 % Normal 1.7-12.0 [facility] Comment on above: Performed By: #### C BC ####[facility] [address] [place], [place] [address]Dr. Lissettalden Monzon NEUT # 1.4 103/ul Normal 1.4-6.5 [facility] Comment on above: Performed By: #### C BC ####[facility] [address] [place], [place] [address]Dr. Cheryl Monzon Neutrophils/100 WBC (Bld) 54.0 % Normal 43.0-75.0 [facility] Comment on above: Performed By: #### C BC ####[facility] [address] [place], [place] [address]Dr. Cheryl Monzon Platelet mean volume (Bld) [Entitic vol] 9.2 fL Critically low 9.5-13.5 [facility] Comment on above: Performed By: #### C BC ####[facility] [address] [place], [place] [address]Gz. Cheryl Monzon PLT 217 103/ul Normal 150-450 [facility] Comment on above: Performed By: #### C BC ####[facility] [address] [place], [place] [address]Du. Cheryl Monzon RBC 3.84 106/ul Critically low 4.20-5.40 [facility] Comment on above: Performed By: #### C BC ####[facility] [address] [place], [place] [address]Cq. Cheryl Monzon WBC 2.7 103/ul Critically low 4.0-11.0 [facility] Comment on above: Performed By: #### C BC ####[facility] [address] [place], [place] [address]AtStephan Monzon FREE T4on 09-04-2022 Free T4 [Mass/Vol] 0.83 ng/dL Normal 0.76-1.46 [facility] Comment on above: Performed By: #### F T4 #### [facility] [address] [address] [address] Cheryl Monzon GLYCOHEMOGLOBIN A1Con 2021 ADA RECOMMENDATION SEE BELOW Normal [facility] Comment on above: Result Comment: ADA RECOMMENDED LIMIT 4.0 - 6.0 ADA THERAPEUTIC TARGET < 7.0 ACTION SUGGESTED > 7.0 Performed By: #### A 1C #### [facility] [address] [address] [address] Cheryl Monzon Glucose [Mass/Vol] 111 mg/dL Normal [facility] Comment on above: Performed By: #### A 1C #### [facility] [address] [address] [address] Cheryl Monzon HbA1c (Bld) [Mass fraction] 5.5 % Normal 4.5-6.2 [facility] Comment on above: Performed By: #### A 1C #### [facility] [address] [address] [address] Cheryl Monzon LIPID PROFILEon 09-04-2022 CHOL-HDL RATIO NORM SEE BELOW Normal [facility] Comment on above: Result Comment: 3.3 - 4.4 LOW RISK 4.4 - 7.1 AVERAGE RISK 7.1 - 11.0 MODERATE RISK >11.0 HIGH RISK Performed By: #### T SH, LIPID, CMP ####[facility] [address] [place], [place] [address]He. Cheryl Monzon Cholesterol [Mass/Vol] 201 mg/dL Critically high <=200 [facility] Comment on above: Performed By: #### T SH, LIPID, CMP ####[facility] [address] [place] [address]Dr. Cheryl Monzon Cholesterol in HDL [Mass/Vol] 78 mg/dL Critically high 40-60 [facility] Comment on above: Performed By: #### T SH, LIPID, CMP ####[facility] [address] [place] [address]Dr. Cheryl Monzon Cholesterol in LDL [Mass/Vol] 112.8 mg/dL Normal [facility] Comment on above: Performed By: #### T SH, LIPID, CMP ####[facility] [address] [place], [place] [address]Ls. Cheryl Monzon Cholesterol.total/Chol esterol in HDL [Mass ratio] 2.6 {ratio} Normal [facility] Comment on above: Performed By: #### T SH, LIPID, CMP ####[facility] [address] [place], [place] [address]Ey. Cheryl Monzon HDL NORMAL > or = 60 mg/dl - LO W CARDIOVASCULAR RISK <40 mg/dl - HIGH CARDIOVASCULAR RISK Normal [facility] Comment on above: Performed By: #### T SH, LIPID, CMP ####[facility] [address] [place] [address]Dr. Cheryl Monzon LDL CALC NORMAL SEE BELOW Normal [facility] Comment on above: Result Comment: <100 mg/dl OPTIMAL 100 - 129 mg/dl NEAR OR ABOVE OPTIMAL 130 - 159 mg/dl BORDERLINE HIGH 160 - 189 mg/dl HIGH >190 mg/dl VERY HIGH Performed By: #### T SH, LIPID, CMP ####[facility] [address] [place], [place] [address]WpDr. Cheryl Monzon Triglyceride [Mass/Vol] 51 mg/dL Normal <=150 [facility] Comment on above: Performed By: #### T SH, LIPID, CMP ####[facility] [address] [place], [place] [address]Dr. Cheryl Monzon VLDL CALC 10.2 mg/dL Normal [facility] Comment on above: Performed By: #### T SH, LIPID, CMP ####[facility] [address] [place], [place] [address]GtDr. Cheryl Monzon PROF 14(COMP METB)on 022 Albumin [Mass/Vol] 3.3 g/dL Critically low 3.4-5.0 [facility] Comment on above: Performed By: #### T SH, LIPID, CMP #### [facility] [address] [address] [address] Cheryl Monzon Albumin/Globulin [Mass ratio] 1.0 {ratio} Normal [facility] Comment on above: Performed By: #### T SH, LIPID, CMP #### [facility] [address] [address] [address] Cheryl Monzon ALP [Catalytic activity/Vol] 94 U/L Normal 46-116 [facility] Comment on above: Performed By: #### T SH, LIPID, CMP #### [facility] [address] [address] [address] Cheryl Monzon ALT [Catalytic activity/Vol] 53 U/L Normal 14-59 [facility] Comment on above: Performed By: #### T SH, LIPID, CMP #### [facility] [address] [address] [address] Cheryl Monzon Anion gap [Moles/Vol] 8.8 mmol/L Normal [facility] Comment on above: Performed By: #### T SH, LIPID, CMP #### [facility] [address] [address] [address] Cheryl Monzon AST [Catalytic activity/Vol] 42 U/L Critically high 15-37 [facility] Comment on above: Performed By: #### T SH, LIPID, CMP #### [facility] [address] [place] [address] Dr. Cheryl Monzon Bilirubin [Mass/Vol] 0.3 mg/dL Normal 0.2-1.0 [facility] Comment on above: Performed By: #### T SH, LIPID, CMP #### [facility] [address] [place] [address] Dr. Cheryl Monzon Calcium [Mass/Vol] 8.8 mg/dL Normal 8.5-10.1 [facility] Comment on above: Performed By: #### T SH, LIPID, CMP #### [facility] [address] [place] [address] Dr. Cheryl Monzon Chloride [Moles/Vol] 106 mmol/L Normal 98-107 [facility] Comment on above: Performed By: #### T SH, LIPID, CMP #### [facility] [address] [place] [address] Dr. Cheryl Monzon CO2 [Moles/Vol] 30.7 mmol/L Normal 21.0-32.0 [facility] Comment on above: Performed By: #### T SH, LIPID, CMP #### [facility] [address] [place] [address] Dr. Cheryl Monzon Creatinine [Mass/Vol] 0.66 mg/dL Normal 0.55-1.02 [facility] Comment on above: Performed By: #### T SH, LIPID, CMP #### [facility] [address] [place] [address] Dr. Cheryl Monzon EGFR-AF ALGERIAN >60 Normal >=60 [facility] Comment on above: Performed By: #### T SH, LIPID, CMP #### [facility] [address] [place] [address] Dr. Cheryl Monzon EGFR-NON AF ALGERIAN >60 Normal >=60 [facility] Comment on above: Performed By: #### T SH, LIPID, CMP #### [facility] [address] [place] [address] Dr. Cheryl Monzon Globulin (S) [Mass/Vol] 3.4 g/dL Normal [facility] Comment on above: Performed By: #### T PUSHPA, LIPID, CMP #### [facility] [address] [address] [address] Cheryl Monzon Glucose [Mass/Vol] 115 mg/dL Critically high 74-106 [facility] Comment on above: Performed By: #### T PUSHPA, LIPID, CMP #### [facility] [address] [address] [address] Cheryl Monzon Potassium [Moles/Vol] 4.5 mmol/L Normal 3.5-5.1 [facility] Comment on above: Performed By: #### T PUSHPA LIPID, CMP #### [facility] [address] [place] [address] Dr. Cheryl Monzon Protein [Mass/Vol] 6.7 g/dL Normal 6.4-8.2 [facility] Comment on above: Performed By: #### T PUSHPA LIPID, CMP #### [facility] [address] [place] [address] Dr. Cheryl Monzon Sodium [Moles/Vol] 141 mmol/L Normal 136-145 [facility] Comment on above: Performed By: #### T PUSHPA LIPID, CMP #### [facility] [address] [place] [address] Dr. Cheryl Monzon Urea nitrogen [Mass/Vol] 16.0 mg/dL Normal 7.0-18.0 [facility] Comment on above: Performed By: #### T PUSHPA, LIPID, CMP #### [facility] [address] [place] [address] Dr. Cheryl Monzon Urea nitrogen/Creatinine [Mass ratio] 24.2 mg/mg Normal [facility] Comment on above: Performed By: #### T PUSHPA, LIPID, CMP #### [facility] [address] [place] [address] Dr. Cheryl Monzon TSHon 09-04-2022 TSH 0.009 uIU/mL Critically low 0.358-3.[address] [facility] Comment on above: Performed By: #### T PUSHPA, LIPID, CMP #### [facility] [id number] Cheryl Monzon Covid-19 PCR (CVDTB)on 05-18 SARS-CoV-2 (COVID-19) RNA ANGELA+probe Ql (Unsp spec) Not detected Normal NOT DETECTED [facility] Comment on above: Result Comment: [...] for this test is supported by the [place] [employer] and Human Service's declaration that [...] longer be used). Performed By: #### [facility] #### [facility] [address] [place] [address] Abdomen and Pelvis [...] any questions regarding this interpretation, please call [phone]. If you are unable to reach us at the number above, please feel free to [facility] at [phone]. DIVISION OF RADIOLOGY * * *Final Report* * * DATE OF EXAM: Dec 13 2021 9:56AM [facility] 0530 - CT ABD/PEL W IVCON / [...] performed concurrently and will be dictated separately. [employer] Bleacher (topogram) images: No additional findings. DIVISION OF RADIOLOGY Provider, [facility] Anastasiia [facility] - 12/13/2021 * * *Final Report* * * DATE OF EXAM: Dec 13 2021 9:56AM [facility] 0530 - CT ABD/PEL W IVCON / [...] performed concurrently and will be dictated separately. [employer]acher (topogram) images: No additional findings. IMPRESSION IMPRESSION: [...] report reviewed and electronically signed by: SERGIO AKISER MD on Dec 13 2021 10:25AM EST Thank you for allowing us to participate in the care of your patient. Should there be any questions regarding this interpretation, please call [phone]. If you are unable to reach us at the number above, please feel free to contact [facility] at [phone]. [facility] CT Abdomen and Pelvis W cont rast IVOrdered By: [facility] Provider on 12-13-20[address] [facility] [address] Chest W contrast [place] IMPRESSION: No [...] any questions regarding this interpretation, please call [phone]. If you are unable to reach us at the number above, please feel free to contact [facility] at [phone]. DIVISION OF RADIOLOGY * * *Final Report* * * DATE OF EXAM: Dec 13 2021 9:56AM [facility] 0539 - CT CHEST W IVCON / [...] performed concurrently and will be dictated separately. [employer]acher (topogram) images: No additional findings. DIVISION OF RADIOLOGY Provider, [facility] - 12/13/2021 * * *Final Report* * * DATE OF EXAM: Dec 13 2021 9:56AM [facility] 0539 - CT CHEST W IVCON / [...] performed concurrently and will be dictated separately. [employer]esw[employer] Bleacher (topogram) images: No additional findings. IMPRESSION IMPRESSION: [...] any questions regarding this interpretation, please call [phone]. If you are unable to reach us at the number above, please feel free to contact [facility] at [phone]. [facility] No Panel Informationon 12-13 Radiology Study observation (narrative) [facility] CBC with Diffon 11-22-2021 Abs. Basophil 0.00 k/uL Normal 0.0-0.2 [facility] Comment on above: Performed By: #### C DP, CMPX, SED, LAC #### [facility] [address] [place] [address] Drawbench Operator Helper: Jacob Campos MD Abs.Neutrophil (Seg) 2.80 k/uL Normal 2.5-7.0 [facility] Comment on above: Performed By: #### C DP, CMPX, SED, LAC #### [facility] [address] [place] [address] Drawbench Operator Helper: Jacbo Campos MD Auto Diff Performed YES Normal [facility] Comment on above: Performed By: #### C DP, CMPX, SED, LAC #### [facility] [address] [place] [address] Drawbench Operator Helper: Jacob Campos MD Basophils/100 WBC (Bld) 1 % Normal 0-2 [facility] Comment on above: Performed By: #### C DP, CMPX, SED, LAC #### [facility] [address] [place] [id number] Drawbench Operator Helper: Jacob Campos MD Eosinophils (Bld) [#/Vol] 0.10 10*3/uL Normal 0.0-0.4 [facility] Comment on above: Performed By: #### C DP, CMPX, SED, LAC #### [facility] [address] [place] [address] Drawbench Operator Helper: Jacob Campos MD Eosinophils/100 WBC (Bld) 3 % Normal 0-5 [facility] Comment on above: Performed By: #### C DP, CMPX, SED, LAC #### [facility] [address] [place] [id number] Drawbench Operator Helper: Jacob Campos MD Erythrocyte distribution width (RBC) [Ratio] 13.6 % Normal 12.1-15.2 [facility] Comment on above: Performed By: #### C DP, CMPX, SED, LAC #### [facility] [address] [place] [id number] Drawbench Operator Helper: Jacob Campos MD Hematocrit (Bld) [Volume fraction] 33.4 % Low 36-46 [facility] Comment on above: Performed By: #### C DP, CMPX, SED, LAC #### [facility] [address] [place] [phone] Drawbench Operator Helper: Jacob Campos MD Hemoglobin (Bld) [Mass/Vol] 11.3 g/dL Low 12.0-16.0 [facility] Comment on above: Performed By: #### C DP, CMPX, SED, LAC #### [facility] [address] [place] [phone] Drawbench Operator Helper: Jacob Campos MD Lymphocytes (Bld) [#/Vol] 0.80 10*3/uL Low 1.0-4.8 [facility] Comment on above: Performed By: #### C DP, CMPX, SED, LAC #### [facility] [address] [place] [address] Drawbench Operator Helper: Jacob Campos MD Lymphocytes/100 WBC (Bld) 19 % Normal 15-40 [facility] Comment on above: Performed By: #### C DP, CMPX, SED, LAC #### [facility] [address] [place] [address] Drawbench Operator Helper: Jacob Campos MD MCH (RBC) [Entitic mass] 30.5 pg Normal 26-34 [facility] Comment on above: Performed By: #### C DP, CMPX, SED, LAC #### [facility] [address] [place] [phone] Drawbench Operator Helper: Jacob Campos MD MCHC (RBC) [Mass/Vol] 33.8 g/dL Normal 31-37 [facility] Comment on above: Performed By: #### C DP, CMPX, SED, LAC #### [facility] [address] [place] [address] Drawbench Operator Helper: Jacob Campos MD MCV (RBC) [Entitic vol] 90.4 fL Normal 80-100 [facility] Comment on above: Performed By: #### C DP, CMPX, SED, LAC #### [facility] [address] [place] [phone] Drawbench Operator Helper: Jaocb Campos MD Monocytes (Bld) [#/Vol] 0.50 10*3/uL Normal 0.0-1.0 [facility] Comment on above: Performed By: #### C DP, CMPX, SED, LAC #### [facility] [address] [place], [place] [id number] Drawbench Operator Helper: Jacob Campos MD Monocytes/100 WBC (Bld) 12 % High 4-8 [facility] Comment on above: Performed By: #### C DP, CMPX, SED, LAC #### [facility] [address] [place], [place] [phone] ([phone] Drawbench Operator Helper: Jacob Campos MD Neutrophil (Seg) 65 % Normal 47-75 [facility] Comment on above: Performed By: #### C DP, CMPX, SED, LAC #### [facility] [address] [place], [place] [phone] (287) Drawbench Operator Helper: Jacob Campos MD Platelets (Bld) [#/Vol] 378 10*3/uL Normal 140-450 [facility] Comment on above: Performed By: #### C DP, CMPX, SED, LAC #### [facility] [address] [place], [place] [phone] ([phone] Drawbench Operator Helper: Jacob Campos MD RBC (Bld) [#/Vol] 3.70 10*6/uL Low 4.0-5.2 [facility] Comment on above: Performed By: #### C DP, CMPX, SED, LAC #### [facility] [address] [place] [address] Drawbench Operator Helper: Jacob Campos MD WBC (Bld) [#/Vol] 4.3 10*3/uL Normal 3.5-11.0 [facility] Comment on above: Performed By: #### C DP, CMPX, SED, LAC #### [facility] [address] [place], [place] [phone] ([phone] Drawbench Operator Helper: Jacob Campos MD Comp Metabolic Pr/rfx MGon 0 11-22-2021 (cont.) Normal [facility] Comment on above: Result Comment: Aver age GFR for 60-69 years old: 85 mL/min/1.73sq m Chronic Kidney Disease: <60 mL/min/1.73sq m Kidney failure: <15 mL/min/1.73sq m eGFR calculated using average adult body mass. Additional eGFR calculator available at: http://www.[employer]multiple_crcl_2012.htm Performed By: #### C DP, CMPX, SED, LAC #### [facility] [address] [place] [address] Drawbench Operator Helper: Jacob Campos MD Albumin [Mass/Vol] 3.5 g/dL Normal 3.5-5.2 [facility] Comment on above: Performed By: #### C DP, CMPX, SED, LAC #### [facility] [address] [place] [address] Drawbench Operator Helper: Jacob Campos MD Alkaline Phos 239 U/L High 35-104 [facility] Comment on above: Performed By: #### C DP, CMPX, SED, LAC #### [facility] [address] [place] [phone] Drawbench Operator Helper: Jacob Campos MD ALT [Catalytic activity/Vol] 23 U/L Normal 5-33 [facility] Comment on above: Performed By: #### C DP, CMPX, SED, LAC #### [facility] [address] [place] [address] Drawbench Operator Helper: Jacob Campos MD Anion gap [Moles/Vol] 11 mmol/L Normal 9-17 [facility] Comment on above: Performed By: #### C DP, CMPX, SED, LAC #### [facility] [address] [place], [place] [phone] Drawbench Operator Helper: Jacob Campos MD AST [Catalytic activity/Vol] 21 U/L Normal <32 [facility] Comment on above: Performed By: #### C DP, CMPX, SED, LAC #### [facility] [address] [place], [place] [phone] Drawbench Operator Helper: Jacob Campos MD Bilirubin [Mass/Vol] 0.27 mg/dL Low 0.30-1.20 [facility] Comment on above: Performed By: #### C DP, CMPX, SED, LAC #### [facility] [address] [place] [phone] Drawbench Operator Helper: Jacob Campos MD BUN/CRE Ratio 22 High 9-20 [facility] Comment on above: Performed By: #### C DP, CMPX, SED, LAC #### [facility] [address] [place] [address] Drawbench Operator Helper: Jacob Campos MD Calcium [Mass/Vol] 9.5 mg/dL Normal 8.6-10.4 [facility] Comment on above: Performed By: #### C DP, CMPX, SED, LAC #### [facility] [address] [place] [address] Drawbench Operator Helper: Jacob Campos MD Chloride [Moles/Vol] 102 mmol/L Normal 98-107 [facility] Comment on above: Performed By: #### C DP, CMPX, SED, LAC #### [facility] [address] [place] [phone] Drawbench Operator Helper: Jacob Campos MD CO2 [Moles/Vol] 26 mmol/L Normal 20-31 [facility] Comment on above: Performed By: #### C DP, CMPX, SED, LAC #### [facility] [address] [place] [phone] Drawbench Operator Helper: Jacob Campos MD Creatinine [Mass/Vol] 0.58 mg/dL Normal 0.50-0.90 [facility] Comment on above: Performed By: #### C DP, CMPX, SED, LAC #### [facility] [address] [place] [phone] Drawbench Operator Helper: Jacob Campos MD GFR, Amer >60 Normal >60 [facility] Comment on above: Performed By: #### C DP, CMPX, SED, LAC #### [facility] [address] [place], [place] [phone] Drawbench Operator Helper: Jacob Campos MD GFR,non Amer >60 Normal >60 [facility] Comment on above: Performed By: #### C DP, CMPX, SED, LAC #### [facility] [address] [place] [address] Drawbench Operator Helper: Jacob Campos MD Glucose [Mass/Vol] 109 mg/dL High 70-99 [facility] Comment on above: Performed By: #### C DP, CMPX, SED, LAC #### [facility] [address] [place], [place] [phone] Drawbench Operator Helper: Jacob Campos MD Potassium [Moles/Vol] 3.7 mmol/L Normal 3.7-5.3 [facility] Comment on above: Performed By: #### C DP, CMPX, SED, LAC #### [facility] [address] [place], [place] [phone] Drawbench Operator Helper: Jacob Campos MD Protein [Mass/Vol] 7.0 g/dL Normal 6.4-8.3 [facility] Comment on above: Performed By: #### C DP, CMPX, SED, LAC #### [facility] [address] [place], [place] [phone] Drawbench Operator Helper: Jacob Campos MD Sodium [Moles/Vol] 139 mmol/L Normal 135-144 [facility] Comment on above: Performed By: #### C DP, CMPX, SED, LAC #### [facility] [address] [place], [place] [phone] Drawbench Operator Helper: Jacob Campos MD Urea nitrogen [Mass/Vol] 13 mg/dL Normal 8-23 [facility] Comment on above: Performed By: #### C DP, CMPX, SED, LAC #### [facility] [address] [place] [address] Drawbench Operator Helper: Jacob Campos MD Lactic Acidon 11-22-2021 Lactate [Moles/Vol] 0.7 mmol/L Normal 0.5-2.2 [facility] Comment on above: Performed By: #### C DP, CMPX, SED, LAC #### [facility] [address] [place] [address] Drawbench Operator Helper: Jacob Campos MD Sedimentation Rateon 022 Sedimentation Rate 48 mm High 0-30 [facility] Comment on above: Performed By: #### C DP, CMPX, SED, LAC #### [facility] [address] [place] [phone] Drawbench Operator Helper: Jacob Campos MD Urinalysis, Routineon 2021 Bilirubin, SemiQt,Ur Negative Normal NEG [facility] Comment on above: Performed By: #### U A #### [facility] [address] [place] [address] Drawbench Operator Helper: Jacob Campos MD Blood, Urine Negative Normal NEG [facility] Comment on above: Performed By: #### U A #### [facility] [address] [place] [address] Drawbench Operator Helper: Jacob Campos MD Clarity (U) Clear Normal CLEAR [facility] Comment on above: Performed By: #### U A #### [facility] [address] [place] [address] Drawbench Operator Helper: Jacob Campos MD Color (U) Yellow Normal YEL [facility] Comment on above: Performed By: #### U A #### [facility] [address] [place] [address] Drawbench Operator Helper: Jacob Campos MD Comment Normal [facility] Comment on above: Performed By: #### U A #### [facility] [address] [place], [place] [phone] Drawbench Operator Helper: Jacob Campos MD Glucose Ql (U) Negative Normal NEG [facility] Comment on above: Performed By: #### U A #### [facility] [address] [place], [place] [phone] Drawbench Operator Helper: Jacob Campos MD Ketones Ql (U) Negative Normal NEG [facility] Comment on above: Performed By: #### U A #### [facility] [address] [place] [address] Drawbench Operator Helper: Jacob Campos MD Leukocyte esterase Test strip Ql (U) Negative Normal NEG [facility] Comment on above: Performed By: #### U A #### [facility] [address] [place], [place] 2289[address] Drawbench Operator Helper: Jacob Campos MD Nitrite,Ur Negative Normal NEG [facility] Comment on above: Performed By: #### U A #### [facility] [address] [place], [place] [phone] Drawbench Operator Helper: Jacob Campos MD PH,Ur 6.5 Normal 5.0-8.0 [facility] Comment on above: Performed By: #### U A #### [facility] [address] [place], [place] 114[address] Drawbench Operator Helper: Jacob Campos MD Protein Ql (U) Negative Normal NEG [facility] Comment on above: Performed By: #### U A #### [facility] [address] [place], [place] [phone] Drawbench Operator Helper: Jacob Campos MD Spec. [place],Ur 1.015 Normal 1.005-1.030 [facility] Comment on above: Performed By: #### U A #### [facility] [address] [place], [place] [phone] Drawbench Operator Helper: Jacob Campos MD Urobilinogen,Ur Normal Normal NORM [facility] Comment on above: Performed By: #### U A #### [facility] [address] [place], [place] [phone] Drawbench Operator Helper: Jacob Campos MD Basic Metabolic Panelon Calcium [Mass/Vol] 9.4 mg/dL Normal 8.2-10.2 [facility] Comment on above: Performed By: #### C BC, BMP #### [facility] [address] Chloride [Moles/Vol] 101 mmol/L Normal 95-114 [facility] Comment on above: Performed By: #### C BC, BMP #### [facility] [address] CO2 [Moles/Vol] 26.3 mmol/L Normal 22.0-30.0 [facility] Comment on above: Performed By: #### C BC, BMP #### [facility] [address] Creatinine [Mass/Vol] 0.72 mg/dL Normal 0.44-1.03 [facility] Comment on above: Performed By: #### C BC, BMP #### [facility] [address] [place] [address] [place] Creatinine Clr Calc Pharmacy 76.81 [facility] Comment on above: Result Comment: PERF ORMED BY: [place] [address] PATHOLOGIST [employer] CLAIRE ANTHONY M.D. Performed By: #### C BC, BMP #### [facility] [address] [place] [address] [place] Estimated GFR ( Damon > 60 Normal [facility] Comment on above: Result Comment: GFR estimated reference range: According to KDOQI guidelines, <60 ml/min/1.73m2 is sufficient to diagnose a patient with chronic kidney disease. Performed By: #### C BC, BMP #### [facility] [address] Estimated GFR (Non- Am > 60 Normal [facility] Comment on above: Performed By: #### C BC, BMP #### [facility] [address] Glucose [Mass/Vol] 104 mg/dL High 70-100 [facility] Comment on above: Result Comment: [facility] Glucose Reference Range is dependent on time and content of last meal. Glucose of more than 200 mg/dL in a nonstressed, ambulatory subject supports the diagnosis of Diabetes Mellitus. ADA recommended reference range Performed By: #### C BC, BMP #### [facility] [address] Potassium [Moles/Vol] 3.8 mmol/L Normal 3.5-5.1 [facility] Comment on above: Performed By: #### C BC, BMP #### [facility] [address] Sodium [Moles/Vol] 138 mmol/L Normal 136-146 [facility] Comment on above: Performed By: #### C BC, BMP #### [address] Urea nitrogen [Mass/Vol] 13 mg/dL Normal 9-23 [facility] Comment on above: Performed By: #### C BC, BMP #### [facility] [address] CBC with Diffon 11-21-2021 Abs.Imm.Granulocyte NOT REPORTED Normal 0.00-0.30 [facility] Comment on above: Performed By: #### C DP, CMPX, SED, LAC #### [facility] [address] [place] [address] Drawbench Operator Helper: Jacob Campos MD Immature Granulocyte NOT REPORTED Normal 0 [facility] Comment on above: Performed By: #### C DP, CMPX, SED, LAC #### [facility] [address] [place], [place] 4378[address] Drawbench Operator Helper: Jacob Campos MD MPV NOT REPORTED Normal 6.0-12.0 [facility] Comment on above: Performed By: #### C DP, CMPX, SED, LAC #### [facility] [address] [place], [place] [phone] Drawbench Operator Helper: Jacob Campos MD NRBC Automated NOT REPORTED Normal [facility] Comment on above: Performed By: #### C DP, CMPX, SED, LAC #### [facility] [address] [place], [place] [phone] Drawbench Operator Helper: Jacob Campos MD Platelet Comment NOT REPORTED Normal [facility] Comment on above: Performed By: #### C DP, CMPX, SED, LAC #### [facility] [address] [place], [place] 2298990 Drawbench Operator Helper: Jacob Campos MD RBC morphology finding Nom (Bld) NOT REPORTED Normal [facility] Comment on above: Performed By: #### C DP, CMPX, SED, LAC #### [facility] [address] [place], [place] [phone] Drawbench Operator Helper: Jacob Campos MD WBC Morphology NOT REPORTED Normal [facility] Comment on above: Performed By: #### C DP, CMPX, SED, LAC #### [facility] [address] [place] [address] Drawbench Operator Helper: Jacob Campos MD Comp Metabolic Pr/rfx MGon 0 - Albumin/Glob Ratio NOT REPORTED Normal 1.0-2.5 [facility] Comment on above: Performed By: #### C DP, CMPX, SED, LAC #### [facility] [address] [place], [place] [phone] Drawbench Operator Helper: Jacob Campos MD Staging: NOT REPORTED Normal [facility] Comment on above: Performed By: #### C DP, CMPX, SED, LAC #### [facility] [address] [place] [address] Drawbench Operator Helper: Jacob Campos MD Complete Blood Count Auto Di ffon 11-21-2021 Basophils (Bld) [#/Vol] 0.0 10*3/uL Normal 0.0-0.2 [facility] Comment on above: Result Comment: PERF ORMED BY: [place] [address] PATHOLOGIST [employer] CLAIRE ANTHONY M.D. Performed By: #### C BC, BMP #### [address] Basophils/100 WBC (Bld) 0.7 % Normal . [facility] Comment on above: Performed By: #### C BC, BMP #### [address] Eosinophils (Bld) [#/Vol] 0.1 10*3/uL Normal 0.0-0.45 [facility] Comment on above: Performed By: #### C BC, BMP #### [address] Eosinophils/100 WBC (Bld) 2.8 % Normal . [facility] Comment on above: Performed By: #### C BC, BMP #### [address] Erythrocyte distribution width (RBC) [Ratio] 13.2 % Normal 11.9-15.3 [facility] Comment on above: Performed By: #### C BC, BMP #### [address] Hematocrit (Bld) [Volume fraction] 35.7 % Normal 34.0-46.4 [facility] Comment on above: Performed By: #### C BC, BMP #### [address] Hemoglobin (Bld) [Mass/Vol] 11.9 g/dL Normal 11.8-15.4 [facility] Comment on above: Performed By: #### C BC, BMP #### [facility] [address] Lymphocytes (Bld) [#/Vol] 0.8 10*3/uL Low 1.00-4.8 [facility] Comment on above: Performed By: #### C BC, BMP #### [address] Lymphocytes/100 WBC (Bld) 16.7 % Normal . [facility] Comment on above: Performed By: #### C BC, BMP #### [address] MCH (RBC) [Entitic mass] 30.2 pg Normal 24.7-34.3 [facility] Comment on above: Performed By: #### C BC, BMP #### [address] MCV (RBC) [Entitic vol] 90.6 fL Normal 80-100 [facility] Comment on above: Performed By: #### C BC, BMP #### [address] Mean Corpuscular HGB Conc 33.3 g/dL Normal 32.0-35.0 [facility] Comment on above: Performed By: #### C BC, BMP #### [place] [address] [place] Monocytes (Bld) [#/Vol] 0.4 10*3/uL Normal 0.0-0.8 [facility] Comment on above: Performed By: #### C BC, BMP #### [place] [address] [place] Monocytes/100 WBC (Bld) 9.1 % Normal . [facility] Comment on above: Performed By: #### C BC, BMP #### [address] Neutrophils (Bld) [#/Vol] 3.4 10*3/uL Normal 1.8-7.7 [facility] Comment on above: Performed By: #### C BC, BMP #### [facility] [address] Neutrophils/100 WBC (Bld) 70.7 % Normal . [facility] Comment on above: Performed By: #### C BC, BMP #### [facility] [address] [place] [address] [place] Nucleated RBC/100 WBC (Bld) [Ratio] 0.0 % Normal 0-0.5 [facility] Comment on above: Performed By: #### C BC, BMP #### [facility] [address] Platelet mean volume (Bld) [Entitic vol] 6.9 fL Normal 6.3-10.7 [facility] Comment on above: Performed By: #### C BC, BMP #### [facility] [address] [place] [address] [place] Platelets (Bld) [#/Vol] 423 10*3/uL Normal 150-450 [facility] Comment on above: Performed By: #### C BC, BMP #### [facility] [address] [place] [address] [place] RBC (Bld) [#/Vol] 3.94 10*6/uL Normal 3.60-5.00 [facility] Comment on above: Performed By: #### C BC, BMP #### [facility] [address] [place] [address] [place] WBC (Bld) [#/Vol] 4.8 10*3/uL Normal 4.5-11.0 [facility] Comment on above: Performed By: #### C BC, BMP #### [facility] [address] [place] [address] [place] Dipstick and Microscopicon 0 11-21-2021 Appearance (U) Clear Normal Clear [facility] Comment on above: Order Comment: Name Collection Type:: Clean-Voided Midstream Performed By: #### C BC, BMP #### [facility] [address] [place] [address] [place] Bacteria,Urine None Seen Normal None Seen [facility] Comment on above: Order Comment: Name Collection Type:: Clean-Voided Midstream Performed By: #### C BC, BMP #### [place] [address] [place] Bilirubin,Urine Negative Normal Negative [facility] Comment on above: Order Comment: Name Collection Type:: Clean-Voided Midstream Performed By: #### C BC, BMP #### [address] Color (U) Yellow Normal Yellow [facility] Comment on above: Order Comment: Name Collection Type:: Clean-Voided Midstream Performed By: #### C BC, BMP #### [address] Glucose Ql (U) Normal Normal Normal [facility] Comment on above: Order Comment: Name Collection Type:: Clean-Voided Midstream Performed By: #### C BC, BMP #### [address] Hyaline Casts,Urine 0-8 Normal 0-8 [facility] Comment on above: Order Comment: Name Collection Type:: Clean-Voided Midstream Result Comment: PERF ORMED BY: [place] [address] PATHOLOGIST [employer] CLAIRE ANTHONY M.D. Performed By: #### C BC, BMP #### [place] [address] [place] Ketones Ql (U) Negative Normal Negative [facility] Comment on above: Order Comment: Name Collection Type:: Clean-Voided Midstream Performed By: #### C BC, BMP #### [facility] [address] [place] [address] [place] Leukocyte esterase Test strip Ql (U) 1+ High Negative [facility] Comment on above: Order Comment: Name Collection Type:: Clean-Voided Midstream Performed By: #### C BC, BMP #### [place] [address] [place] Nitrite,Urine Negative Normal Negative [facility] Comment on above: Order Comment: Name Collection Type:: Clean-Voided Midstream Performed By: #### C BC, BMP #### [address] Occult Blood,Urine Negative Normal Negative [facility] Comment on above: Order Comment: Name Collection Type:: Clean-Voided Midstream Result Comment: PERF ORMED BY: [place] [address] PATHOLOGIST [employer] CLAIRE ANTHONY M.D. Performed By: #### C BC, BMP #### [address] pH (U) 6.5 [pH] Normal 5.0-9.0 [facility] Comment on above: Order Comment: Name Collection Type:: Clean-Voided Midstream Performed By: #### C BC, BMP #### [address] Protein,Urine Negative Normal Negative [facility] Comment on above: Order Comment: Name Collection Type:: Clean-Voided Midstream Performed By: #### C BC, BMP #### [address] RBC,Urine 1-2 Normal 0-4 [facility] [facility] Comment on above: Order Comment: Name Collection Type:: Clean-Voided Midstream Performed By: #### C BC, BMP #### [facility] [address] [place] [address] [place] Specificy [place],Urine 1.014 Normal 1.001-1.030 [facility] Comment on above: Order Comment: Name Collection Type:: Clean-Voided Midstream Performed By: #### C BC, BMP #### [place] [address] [place] Squamous Epithelial Cell,Urine None Seen Normal 0-2 [facility] Comment on above: Order Comment: Name Collection Type:: Clean-Voided Midstream Performed By: #### C BC, BMP #### [address] Urobilinogen,Urine Normal Normal Normal [facility] Comment on above: Order Comment: Name Collection Type:: Clean-Voided Midstream Performed By: #### C BC, BMP #### [address] WBC,Urine 1-2 Normal 0-4 [facility] Comment on above: Order Comment: Name Collection Type:: Clean-Voided Midstream Performed By: #### C BC, BMP #### [address] Complete Blood Count Auto Di ffon 11-04-2021 Basophils (Bld) [#/Vol] 0.0 10*3/uL Normal 0.0-0.2 [facility] Comment on above: Result Comment: PERF ORMED BY: [place] [address] PATHOLOGIST [employer] CLAIRE ANTHONY M.D. Performed By: #### C BC, BMP #### [address] Basophils/100 WBC (Bld) 0.1 % Normal . [facility] Comment on above: Performed By: #### C BC, BMP #### [address] Eosinophils (Bld) [#/Vol] 0.1 10*3/uL Normal 0.0-0.45 [facility] Comment on above: Performed By: #### C BC, BMP #### [address] Eosinophils/100 WBC (Bld) 1.3 % Normal . [facility] Comment on above: Performed By: #### C BC, BMP #### [address] Erythrocyte distribution width (RBC) [Ratio] 13.0 % Normal 11.9-15.3 [facility] Comment on above: Performed By: #### C BC, BMP #### [address] Hematocrit (Bld) [Volume fraction] 27.5 % Low 34.0-46.4 [facility] Comment on above: Performed By: #### C BC, BMP #### [address] Hemoglobin (Bld) [Mass/Vol] 9.3 g/dL Low 11.8-15.4 [facility] Comment on above: Performed By: #### C BC, BMP #### [address] Lymphocytes (Bld) [#/Vol] 0.5 10*3/uL Low 1.00-4.8 [facility] Comment on above: Performed By: #### C BC, BMP #### [address] Lymphocytes/100 WBC (Bld) 6.3 % Normal . [facility] Comment on above: Performed By: #### C BC, BMP #### [address] MCH (RBC) [Entitic mass] 31.1 pg Normal 24.7-34.3 [facility] Comment on above: Performed By: #### C BC, BMP #### [address] MCV (RBC) [Entitic vol] 92.0 fL Normal 80-100 [facility] Comment on above: Performed By: #### C BC, BMP #### [address] Mean Corpuscular HGB Conc 33.8 g/dL Normal 32.0-35.0 [facility] Comment on above: Performed By: #### C BC, BMP #### [address] Monocytes (Bld) [#/Vol] 0.8 10*3/uL Normal 0.0-0.8 [facility] Comment on above: Performed By: #### C BC, BMP #### [address] Monocytes/100 WBC (Bld) 10.8 % Normal . [facility] Comment on above: Performed By: #### C BC, BMP #### [facility] [address] [place] [address] [place] Neutrophils (Bld) [#/Vol] 5.9 10*3/uL Normal 1.8-7.7 [facility] Comment on above: Performed By: #### C BC, BMP #### [facility] [address] [place] [address] [place] Neutrophils/100 WBC (Bld) 81.5 % Normal . [facility] Comment on above: Performed By: #### C BC, BMP #### [facility] [address] Nucleated RBC/100 WBC (Bld) [Ratio] 0.0 % Normal 0-0.5 [facility] Comment on above: Performed By: #### C BC, BMP #### [facility] [address] [place] [address] [place] Platelet mean volume (Bld) [Entitic vol] 7.4 fL Normal 6.3-10.7 [facility] Comment on above: Performed By: #### C BC, BMP #### [facility] [address] [place] [address] [place] Platelets (Bld) [#/Vol] 135 10*3/uL Low 150-450 [facility] Comment on above: Performed By: #### C BC, BMP #### [facility] [address] [place] [address] [place] RBC (Bld) [#/Vol] 2.99 10*6/uL Low 3.60-5.00 [facility] Comment on above: Performed By: #### C BC, BMP #### [facility] [address] [place] [address] [place] WBC (Bld) [#/Vol] 7.3 10*3/uL Normal 4.5-11.0 [facility] Comment on above: Performed By: #### C BC, BMP #### [facility] [address] [place] [address] [place] Electrolyteson 11-04-2021 Chloride [Moles/Vol] 106 mmol/L Normal 95-114 [facility] Comment on above: Performed By: #### C BC, BMP #### [address] CO2 [Moles/Vol] 25.2 mmol/L Normal 22.0-30.0 [facility] Comment on above: Result Comment: PERF ORMED BY: [place] [address] PATHOLOGIST [employer] CLAIRE ANTHONY M.D. Performed By: #### C BC, BMP #### [address] Potassium [Moles/Vol] 3.7 mmol/L Normal 3.5-5.1 [facility] Comment on above: Performed By: #### C BC, BMP #### [address] Sodium [Moles/Vol] 137 mmol/L Normal 136-146 [facility] Comment on above: Performed By: #### C BC, BMP #### [address] Complete Blood Count Auto Di ffon 11-03-2021 Basophils (Bld) [#/Vol] 0.0 10*3/uL Normal 0.0-0.2 [facility] Comment on above: Result Comment: PERF ORMED BY: [place] [address] PATHOLOGIST [employer] CLAIRE ANTHONY M.D. Performed By: #### C BC, BMP #### [place] [address] [place] Basophils/100 WBC (Bld) 0.1 % Normal . [facility] Comment on above: Performed By: #### C BC, BMP #### [address] Eosinophils (Bld) [#/Vol] 0.0 10*3/uL Normal 0.0-0.45 [facility] Comment on above: Performed By: #### C BC, BMP #### [facility] [address] [place] [address] [place] Eosinophils/100 WBC (Bld) 0.3 % Normal . [facility] Comment on above: Performed By: #### C BC, BMP #### [facility] [address] Erythrocyte distribution width (RBC) [Ratio] 12.8 % Normal 11.9-15.3 [facility] Comment on above: Performed By: #### C BC, BMP #### [facility] [address] Hematocrit (Bld) [Volume fraction] 29.5 % Low 34.0-46.4 [facility] Comment on above: Performed By: #### C BC, BMP #### [address] Hemoglobin (Bld) [Mass/Vol] 9.9 g/dL Low 11.8-15.4 [facility] Comment on above: Performed By: #### C BC, BMP #### [facility] [address] Lymphocytes (Bld) [#/Vol] 0.5 10*3/uL Low 1.00-4.8 [facility] Comment on above: Performed By: #### C BC, BMP #### [place] [address] [place] Lymphocytes/100 WBC (Bld) 7.4 % Normal . [facility] Comment on above: Performed By: #### C BC, BMP #### [facility] [address] [place] [address] [place] MCH (RBC) [Entitic mass] 30.9 pg Normal 24.7-34.3 [facility] Comment on above: Performed By: #### C BC, BMP #### [address] MCV (RBC) [Entitic vol] 92.1 fL Normal 80-100 [facility] Comment on above: Performed By: #### C BC, BMP #### [facility] [address] [place] [id number] [place] Mean Corpuscular HGB Conc 33.6 g/dL Normal 32.0-35.0 [facility] Comment on above: Performed By: #### C BC, BMP #### [facility] [address] [place] [address] [place] Monocytes (Bld) [#/Vol] 0.7 10*3/uL Normal 0.0-0.8 [facility] Comment on above: Performed By: #### C BC, BMP #### [facility] [address] [place] [phone] [place] Monocytes/100 WBC (Bld) 10.0 % Normal . [facility] Comment on above: Performed By: #### C BC, BMP #### [facility] [address] [place] [address] [place] Neutrophils (Bld) [#/Vol] 5.8 10*3/uL Normal 1.8-7.7 [facility] Comment on above: Performed By: #### C BC, BMP #### [facility] [address] [place] [phone] [place] Neutrophils/100 WBC (Bld) 82.2 % Normal . [facility] Comment on above: Performed By: #### C BC, BMP #### [facility] [address] [place] [address] [place] Nucleated RBC/100 WBC (Bld) [Ratio] 0.0 % Normal 0-0.5 [facility] Comment on above: Performed By: #### C BC, BMP #### [facility] [address] [place] [phone] [place] Platelet mean volume (Bld) [Entitic vol] 8.1 fL Normal 6.3-10.7 [facility] Comment on above: Performed By: #### C BC, BMP #### [facility] [address] [place] [phone] [place] Platelets (Bld) [#/Vol] 153 10*3/uL Normal 150-450 [facility] Comment on above: Performed By: #### C BC, BMP #### [address] RBC (Bld) [#/Vol] 3.21 10*6/uL Low 3.60-5.00 [facility] Comment on above: Performed By: #### C SANTANA, BMP #### [address] WBC (Bld) [#/Vol] 7.0 10*3/uL Normal 4.5-11.0 [facility] Comment on above: Performed By: #### C SANTANA, BMP #### [address] Electrolyteson 11-03-2021 Chloride [Moles/Vol] 104 mmol/L Normal 95-114 [facility] Comment on above: Performed By: #### C SANTANA, BMP #### [address] CO2 [Moles/Vol] 28.5 mmol/L Normal 22.0-30.0 [facility] Comment on above: Result Comment: PERF ORMED BY: [place] [address] PATHOLOGIST [employer] CLAIRE ANTHONY M.D. Performed By: #### C SANTANA, BMP #### [address] Potassium [Moles/Vol] 4.2 mmol/L Normal 3.5-5.1 [facility] Comment on above: Performed By: #### C SANTANA, BMP #### [address] Sodium [Moles/Vol] 139 mmol/L Normal 136-146 [facility] Comment on above: Performed By: #### C SANTANA, BMP #### [address] Viet 11-02-2021 L -- ---- Specimen: [id number] Received: 11/02/21 Status: GARRETT Sapna Num: [id number] Spec Type: Surgical Subm Dr: Mary Gatica Jr, DO Tissues: A Gross Only (BONE/TISSUE RT HIP) Procedures: Level 1 Gross ---- Patient Age/Sex Location Account Attending Physician ---- Isabel Waddell 61/F 4N [id number] Mary Gatica Jr, DO ---- SPEC NUM: [id number] RECD: 11/02/21 STATUS: GARRETT SAPNA NUM: [id number] FRANCISCA: 11/02/[address]: Mary Gatica Jr, [...] only. (JUAN/DORA) Microscopic Description Gross examination only. [id number] ---- ---- Specimen: [id number] Received: 11/02/21 Status: GARRETT Campuzano Num: [id number] Spec Type: Surgical Subm Dr: Mary Gatica Jr, DO Tissues: A Gross Only (BONE/TISSUE RT HIP) Procedures: Level 1 Gross ---- Patient: Isabel Waddell [id number] (Continued) ---- Signed (signature on file) Claire Anthony MD 11/02/21 1559 [facility] LeukoReduced RBCon LeukoReduced RBC READY [facility] Type and Screenon 11-02-2021 ABO and Rh group Nom (Bld) Blood group O Rh(D) positive [facility] Comment on above: Order Comment: Trans fuse now? N XR low pelvis w/RT x-table h ipon 11-02-2021 XR low pelvis w/RT x-table hip [facility] [place] [address] XRay Report Signed Patient: Isabel Waddell MR#: [id number] : 1960 Acct:[id number] Age/Sex: 61 / F ADM Date: 11/02/21 Loc: N Room: [address] [place] [address] Type: REG [facility] Attending Dr: Mary Gatica Jr, DO Ordering [...] M.D.11/02/2021 2:41 PM Dictation Location: [place] [address] Transcribed By: [facility] 11/02/211440 Dictated By: Shiva Stafford II, MD 11/02/211439 Signed By: 11/02/211440 Normal [facility] COVID-19 FRon 10-31-2021 SARS-CoV-2 (COVID-19) RNA ANGELA+probe Ql (Unsp spec) Negative Normal Negative [facility] Comment on above: Order Comment: 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 This test has not been FDA [...] is terminated or revoked sooner. PERFORMED BY: [address] [place] [address] PATHOLOGIST [employer] CLAIRE ANTHONY M.D. Performed By: #### C BC, BMP #### [facility] [address] [place] [phone] [facility] Basic Metabolic Panelon 11-2 Calcium [Mass/Vol] 9.3 mg/dL Normal 8.2-10.2 [facility] Comment on above: Result Comment: PERF ORMED BY: [place] [address] PATHOLOGIST [employer] CLAIRE ANTHONY M.D. Performed By: #### C BC, BMP #### [facility] [address] Chloride [Moles/Vol] 104 mmol/L Normal 95-114 [facility] Comment on above: Performed By: #### C BC, BMP #### [facility] [address] CO2 [Moles/Vol] 28.3 mmol/L Normal 22.0-30.0 [facility] Comment on above: Performed By: #### C BC, BMP #### [address] Creatinine [Mass/Vol] 0.61 mg/dL Normal 0.44-1.03 [facility] Comment on above: Performed By: #### C BC, BMP #### [facility] [address] Estimated GFR ( Damon > 60 [facility] Comment on above: Result Comment: GFR estimated reference range: According to KDOQI guidelines, <60 ml/min/1.73m2 is sufficient to diagnose a patient with chronic kidney disease. Performed By: #### C BC, BMP #### [facility] [address] [place] [address] [place] Estimated GFR (Non- Am > 60 Normal [facility] Comment on above: Performed By: #### C BC, BMP #### [facility] [address] [place] [phone] [place] Glucose [Mass/Vol] 100 mg/dL Normal 70-100 [facility] Comment on above: Result Comment: [place] Glucose Reference Range is dependent on time and content of last meal. Glucose of more than 200 mg/dL in a nonstressed, ambulatory subject supports the diagnosis of Diabetes Mellitus. ADA recommended reference range Performed By: #### C BC, BMP #### [address] Potassium [Moles/Vol] 4.7 mmol/L Normal 3.5-5.1 [facility] Comment on above: Performed By: #### C BC, BMP #### [address] Sodium [Moles/Vol] 140 mmol/L Normal 136-146 [facility] Comment on above: Performed By: #### C BC, BMP #### [address] Urea nitrogen [Mass/Vol] 17 mg/dL Normal 9-23 [facility] Comment on above: Performed By: #### C BC, BMP #### [address] Complete Blood Count Auto Di ffon 10-15-2021 Basophils (Bld) [#/Vol] 0.0 10*3/uL Normal 0.0-0.2 [facility] Comment on above: Result Comment: PERF ORMED BY: [place] [address] PATHOLOGIST [employer] CLAIRE ANTHONY M.D. Performed By: #### C BC, BMP #### [place] [address] [place] Basophils/100 WBC (Bld) 0.4 % Normal . [facility] Comment on above: Performed By: #### C BC, BMP #### [place] [address] [place] Eosinophils (Bld) [#/Vol] 0.1 10*3/uL Normal 0.0-0.45 [facility] Comment on above: Performed By: #### C BC, BMP #### [address] Eosinophils/100 WBC (Bld) 2.1 % Normal . [facility] Comment on above: Performed By: #### C BC, BMP #### [facility] [address] Erythrocyte distribution width (RBC) [Ratio] 13.0 % Normal 11.9-15.3 [facility] Comment on above: Performed By: #### C BC, BMP #### [address] Hematocrit (Bld) [Volume fraction] 36.8 % Normal 34.0-46.4 [facility] Comment on above: Performed By: #### C BC, BMP #### [address] Hemoglobin (Bld) [Mass/Vol] 12.4 g/dL Normal 11.8-15.4 [facility] Comment on above: Performed By: #### C BC, BMP #### [address] Lymphocytes (Bld) [#/Vol] 0.5 10*3/uL Low 1.00-4.8 [facility] Comment on above: Performed By: #### C BC, BMP #### [address] Lymphocytes/100 WBC (Bld) 18.8 % Normal . [facility] Comment on above: Performed By: #### C BC, BMP #### [address] MCH (RBC) [Entitic mass] 31.3 pg Normal 24.7-34.3 [facility] Comment on above: Performed By: #### C BC, BMP #### [address] MCV (RBC) [Entitic vol] 92.8 fL Normal 80-100 [facility] Comment on above: Performed By: #### C BC, BMP #### [address] Mean Corpuscular HGB Conc 33.7 g/dL Normal 32.0-35.0 [facility] Comment on above: Performed By: #### C BC, BMP #### [facility] [address] [place] [address] [place] Monocytes (Bld) [#/Vol] 0.3 10*3/uL Normal 0.0-0.8 [facility] Comment on above: Performed By: #### C BC, BMP #### [facility] [address] [place] [phone] [place] Monocytes/100 WBC (Bld) 10.8 % Normal . [facility] Comment on above: Performed By: #### C BC, BMP #### [facility] [address] [place] [address] [place] Neutrophils (Bld) [#/Vol] 1.9 10*3/uL Normal 1.8-7.7 [facility] Comment on above: Performed By: #### C BC, BMP #### [facility] [address] [place] [phone] [place] Neutrophils/100 WBC (Bld) 67.9 % Normal . [facility] Comment on above: Performed By: #### C BC, BMP #### [facility] [address] [place] [phone] [place] Nucleated RBC/100 WBC (Bld) [Ratio] 0.1 % Normal 0-0.5 [facility] Comment on above: Performed By: #### C BC, BMP #### [facility] [address] [place] [address] [place] Platelet mean volume (Bld) [Entitic vol] 7.4 fL Normal 6.3-10.7 [facility] Comment on above: Performed By: #### C BC, BMP #### [facility] [address] [place] [phone] [place] Platelets (Bld) [#/Vol] 198 10*3/uL Normal 150-450 [facility] Comment on above: Performed By: #### C BC, BMP #### [facility] [address] [place] [phone] [place] RBC (Bld) [#/Vol] 3.97 10*6/uL Normal 3.60-5.00 [facility] Comment on above: Performed By: #### C BC, BMP #### [facility] [address] [place] [address] [place] WBC (Bld) [#/Vol] 2.8 10*3/uL Low 4.5-11.0 [facility] Comment on above: Performed By: #### C BC, BMP #### [facility] [address] [place] [address] [place] Dipstick and Microscopicon 1 12-15-2020 Appearance (U) Turbid Critically abnormal Clear [facility] Comment on above: Order Comment: Name Collection Type:: Clean-Voided Midstream Performed By: #### A DDONUAPLUS #### [place] [address] [place] Bacteria,Urine None Seen Normal None Seen [facility] Comment on above: Order Comment: Name Collection Type:: Clean-Voided Midstream Performed By: #### A DDONUAPLUS #### [place] [address] [place] Bilirubin,Urine Negative Normal Negative [facility] Comment on above: Order Comment: Name Collection Type:: Clean-Voided Midstream Performed By: #### A DDONUAPLUS #### [address] Color (U) Yellow Normal Yellow [facility] Comment on above: Order Comment: Name Collection Type:: Clean-Voided Midstream Performed By: #### A DDONUAPLUS #### [facility] [address] [place] [address] [place] Glucose Ql (U) Normal Normal Normal [facility] Comment on above: Order Comment: Name Collection Type:: Clean-Voided Midstream Performed By: #### A DDONUAPLUS #### [place] [address] [place] Hyaline Casts,Urine None Seen Normal 0-8 [facility] Comment on above: Order Comment: Name Collection Type:: Clean-Voided Midstream Result Comment: PERF ORMED BY: [place] [address] PATHOLOGIST [employer] CLAIRE ANTHONY M.D. Performed By: #### A DDONUAPLUS #### [address] Ketones Ql (U) Negative Normal Negative [facility] Comment on above: Order Comment: Name Collection Type:: Clean-Voided Midstream Performed By: #### A DDONUAPLUS #### [address] Leukocyte esterase Test strip Ql (U) 1+ High Negative [facility] Comment on above: Order Comment: Name Collection Type:: Clean-Voided Midstream Performed By: #### A DDONUAPLUS #### [address] Nitrite,Urine Negative Normal Negative [facility] Comment on above: Order Comment: Name Collection Type:: Clean-Voided Midstream Performed By: #### A DDONUAPLUS #### [address] Occult Blood,Urine Negative Normal Negative [facility] Comment on above: Order Comment: Name Collection Type:: Clean-Voided Midstream Result Comment: PERF ORMED BY: [place] [address] PATHOLOGIST [employer] CLAIRE ANTHONY M.D. Performed By: #### A DDONUAPLUS #### [place] [address] [place] pH (U) 7.5 [pH] Normal 5.0-9.0 [facility] Comment on above: Order Comment: Name Collection Type:: Clean-Voided Midstream Performed By: #### A DDONUAPLUS #### [place] [address] [place] Protein,Urine Negative Normal Negative [facility] Comment on above: Order Comment: Name Collection Type:: Clean-Voided Midstream Performed By: #### A DDONUAPLUS #### [address] RBC,Urine 1-2 Normal 0-4 [facility] Comment on above: Order Comment: Name Collection Type:: Clean-Voided Midstream Performed By: #### A DDONUAPLUS #### [facility] [address] [place] [address] Specificy [place],Urine 1.017 Normal 1.001-1.030 [facility] Comment on above: Order Comment: Name Collection Type:: Clean-Voided Midstream Performed By: #### A DDONUAPLUS #### [facility] [address] [place] [address] Squamous Epithelial Cell,Urine None Seen Normal 0-2 [facility] Comment on above: Order Comment: Name Collection Type:: Clean-Voided Midstream Performed By: #### A DDONUAPLUS #### [address] Urobilinogen,Urine Normal Normal Normal [facility] Comment on above: Order Comment: Name Collection Type:: Clean-Voided Midstream Performed By: #### A DDONUAPLUS #### [facility] [address] [place] [address] WBC,Urine 3-4 Normal 0-4 [facility] Comment on above: Order Comment: Name Collection Type:: Clean-Voided Midstream Performed By: #### A DDONUAPLUS #### [facility] [address] [place] [address] PST Type and Screenon 2020 ABO and Rh group Nom (Bld) Blood group O Rh(D) positive Normal [facility] Comment on above: Order Comment: Date of Surgery: [id number] # of PRBC units on hold?: 2 Result Comment: PERF ORMED BY: [place] [address] PATHOLOGIST [employer] CLAIRE ANTHONY M.D. XR hip RT min 2V(w/wo pelvis )*on 10-15-2021 XR hip RT min 2V(w/wo pelvis)* [facility] [place] [address] [place] [address] XRay Report Signed Patient: Isabel Waddell MR#: [id number] : 1960 Acct:[id number] Age/Sex: 61 / F ADM Date: 10/15/21 [...] Yusef Fernandez M.D.10/15/2021 2:21 PM Dictation Location: [place] [address] Transcribed By: [facility] 10/15/21 1421 Dictated By: Yusef Fernandez DO 10/15/21 1420 Signed By: 10/15/21 1421 Normal [facility] XR tibia/fibula BIon -06- 021 XR tibia/fibula BI [facility] [place] [address] XRay Report Signed Patient: Isabel Waddell MR#: [id number] : 1960 Acct:[id number] Age/Sex: 61 / F ADM Date: 08/22/21 Loc: ICXD Room: Type: REG CLI Attending Dr: Mary Gatica Jr, DO Ordering Provider: Mary Gatica Jr, DO Date of Service: 08/22/21 XR/XR femur BI: PST ([id number]) XR/XR tibia/fibula BI: PST Copies to: Mary [...] Mckayla Rai M.D.08/22/2021 3:17 PM Dictation Location: [place] [address] Transcribed By: [facility] 08/22/211516 Dictated By: Mckayla Rai MD 08/22/211512 Signed By: 08/22/211516 Normal [facility] Basic Metabolic Panelon 10-0 Calcium [Mass/Vol] 9.1 mg/dL Normal 8.2-10.2 [facility] Comment on above: Result Comment: PERF ORMED BY: [place] [address] PATHOLOGIST HISTORIAN [employer]AT[employer]S CLAIRE ANTHONY M.D. Performed By: #### C SANTANA BMP #### [address] Chloride [Moles/Vol] 102 mmol/L Normal 95-114 [facility] Comment on above: Performed By: #### C SANTANA, BMP #### [place] [address] [place] CO2 [Moles/Vol] 27.8 mmol/L Normal 22.0-30.0 [facility] Comment on above: Performed By: #### C SANTANA, BMP #### [address] Creatinine [Mass/Vol] 0.63 mg/dL Normal 0.44-1.03 [facility] Comment on above: Performed By: #### C SANTANA, BMP #### [place] [address] [place] Estimated GFR ( Damon > 60 Normal [facility] Comment on above: Result Comment: GFR estimated reference range: According to KDOQI guidelines, <60 ml/min/1.73m2 is sufficient to diagnose a patient with chronic kidney disease. Performed By: #### C BC, BMP #### [facility] [address] Estimated GFR (Non- Am > 60 Normal [facility] Comment on above: Performed By: #### C BC, BMP #### [address] Glucose [Mass/Vol] 101 mg/dL High 70-100 [facility] Comment on above: Result Comment: Munday Glucose Reference Range is dependent on time and content of last meal. Glucose of more than 200 mg/dL in a nonstressed, ambulatory subject supports the diagnosis of Diabetes Mellitus. ADA recommended reference range Performed By: #### C BC, BMP #### [address] Potassium [Moles/Vol] 4.2 mmol/L Normal 3.5-5.1 [facility] Comment on above: Performed By: #### C BC, BMP #### [address] Sodium [Moles/Vol] 138 mmol/L Normal 136-146 [facility] Comment on above: Performed By: #### C BC, BMP #### [address] Urea nitrogen [Mass/Vol] 18 mg/dL Normal 9-23 [facility] Comment on above: Performed By: #### C BC, BMP #### [address] Complete Blood Count Auto Di ffon 08-20-2021 Basophils (Bld) [#/Vol] 0.0 10*3/uL Normal 0.0-0.2 [facility] Comment on above: Result Comment: PERF ORMED BY: [place] [address] PATHOLOGIST H[employer]IAN [employer] CLAIRE ANTHONY M.D. Performed By: #### C BC, BMP #### [facility] [address] [place] [address] [place] Basophils/100 WBC (Bld) 0.1 % Normal . [facility] Comment on above: Performed By: #### C BC, BMP #### [facility] [address] [place] [address] [place] Eosinophils (Bld) [#/Vol] 0.1 10*3/uL Normal 0.0-0.45 [facility] Comment on above: Performed By: #### C BC, BMP #### [facility] [address] [place] [address] [place] Eosinophils/100 WBC (Bld) 2.5 % Normal . [facility] Comment on above: Performed By: #### C BC, BMP #### [facility] [address] Erythrocyte distribution width (RBC) [Ratio] 13.6 % Normal 11.9-15.3 [facility] Comment on above: Performed By: #### C BC, BMP #### [facility] [address] [place] [address] [place] Hematocrit (Bld) [Volume fraction] 34.5 % Normal 34.0-46.4 [facility] Comment on above: Performed By: #### C BC, BMP #### [facility] [address] [place] [address] [place] Hemoglobin (Bld) [Mass/Vol] 11.9 g/dL Normal 11.8-15.4 [facility] Comment on above: Performed By: #### C BC, BMP #### [facility] [address] [place] [id number] [place] Lymphocytes (Bld) [#/Vol] 0.6 10*3/uL Low 1.00-4.8 [facility] Comment on above: Performed By: #### C BC, BMP #### [facility] [address] [place] [id number] [place] Lymphocytes/100 WBC (Bld) 15.9 % Normal . [facility] Comment on above: Performed By: #### C BC, BMP #### [facility] [address] MCH (RBC) [Entitic mass] 31.3 pg Normal 24.7-34.3 [facility] Comment on above: Performed By: #### C BC, BMP #### [facility] [address] MCV (RBC) [Entitic vol] 90.5 fL Normal 80-100 [facility] Comment on above: Performed By: #### C BC, BMP #### [facility] [address] Mean Corpuscular HGB Conc 34.6 g/dL Normal 32.0-35.0 [facility] Comment on above: Performed By: #### C BC, BMP #### [facility] [address] [place] [address] [place] Monocytes (Bld) [#/Vol] 0.5 10*3/uL Normal 0.0-0.8 [facility] Comment on above: Performed By: #### C BC, BMP #### [facility] [address] [place] [address] [place] Monocytes/100 WBC (Bld) 13.2 % Normal . [facility] Comment on above: Performed By: #### C BC, BMP #### [facility] [address] [place] [address] [place] Neutrophils (Bld) [#/Vol] 2.7 10*3/uL Normal 1.8-7.7 [facility] Comment on above: Performed By: #### C BC, BMP #### [facility] [address] [place] [address] [place] Neutrophils/100 WBC (Bld) 68.3 % Normal . [facility] Comment on above: Performed By: #### C BC, BMP #### [facility] [address] [place] [address] [place] Nucleated RBC/100 WBC (Bld) [Ratio] 0.1 % Normal 0-0.5 [facility] Comment on above: Performed By: #### C BC, BMP #### [facility] [address] Platelet mean volume (Bld) [Entitic vol] 7.8 fL Normal 6.3-10.7 [facility] Comment on above: Performed By: #### C BC, BMP #### [facility] [address] Platelets (Bld) [#/Vol] 182 10*3/uL Normal 150-450 [facility] Comment on above: Performed By: #### C BC, BMP #### [address] RBC (Bld) [#/Vol] 3.81 10*6/uL Normal 3.60-5.00 [facility] Comment on above: Performed By: #### C BC, BMP #### [address] WBC (Bld) [#/Vol] 4.0 10*3/uL Low 4.5-11.0 [facility] Comment on above: Performed By: #### C BC, BMP #### [address] Dipstick and Microscopicon 1 Appearance (U) Turbid Critically abnormal Clear [facility] Comment on above: Order Comment: Comme nt urine C S if indicated by UA Name Collection Type:: Clean-Voided Midstream Performed By: #### A DDONUAPLUS #### [facility] [address] [place] [address] Bacteria,Urine None Seen Normal None Seen [facility] Comment on above: Order Comment: Comme nt urine C S if indicated by UA Name Collection Type:: Clean-Voided Midstream Performed By: #### A DDONUAPLUS #### [address] Bilirubin,Urine Negative Normal Negative [facility] Comment on above: Order Comment: Comme nt urine C S if indicated by UA Name Collection Type:: Clean-Voided Midstream Performed By: #### A DDONUAPLUS #### [facility] [address] [place] [address] Color (U) Yellow Normal Yellow [facility] Comment on above: Order Comment: Comme nt urine C S if indicated by UA Name Collection Type:: Clean-Voided Midstream Performed By: #### A DDONUAPLUS #### [address] Glucose Ql (U) Normal Normal Normal [facility] Comment on above: Order Comment: Comme nt urine C S if indicated by UA Name Collection Type:: Clean-Voided Midstream Performed By: #### A DDONUAPLUS #### [address] Hyaline Casts,Urine 0-8 Normal 0-8 [facility] Comment on above: Order Comment: Comme nt urine C S if indicated by UA Name Collection Type:: Clean-Voided Midstream Result Comment: PERF ORMED BY: [place] [address] PATHOLOGIST [employer] CLAIRE ANTHONY M.D. Performed By: #### A DDONUAPLUS #### [address] Ketones Ql (U) Negative Normal Negative [facility] Comment on above: Order Comment: Comme nt urine C S if indicated by UA Name Collection Type:: Clean-Voided Midstream Performed By: #### A DDONUAPLUS #### [address] Leukocyte esterase Test strip Ql (U) 3+ High Negative [facility] Comment on above: Order Comment: Comme nt urine C S if indicated by UA Name Collection Type:: Clean-Voided Midstream Performed By: #### A DDONUAPLUS #### [address] Nitrite,Urine Negative Normal Negative [facility] Comment on above: Order Comment: Comme nt urine C S if indicated by UA Name Collection Type:: Clean-Voided Midstream Performed By: #### A DDONUAPLUS #### [address] Occult Blood,Urine Negative Normal Negative [facility] Comment on above: Order Comment: Comme nt urine C S if indicated by UA Name Collection Type:: Clean-Voided Midstream Result Comment: PERF ORMED BY: [place] [address] PATHOLOGIST H[employer] CLAIRE ANTHONY M.D. Performed By: #### A DDONUAPLUS #### [address] pH (U) 8.5 [pH] Normal 5.0-9.0 [facility] Comment on above: Order Comment: Comme nt urine C S if indicated by UA Name Collection Type:: Clean-Voided Midstream Performed By: #### A DDONUAPLUS #### [address] Protein,Urine Negative Normal Negative [facility] Comment on above: Order Comment: Comme nt urine C S if indicated by UA Name Collection Type:: Clean-Voided Midstream Performed By: #### A DDONUAPLUS #### [facility] [address] [place] [address] RBC,Urine 3-4 Normal 0-4 [facility] Comment on above: Order Comment: Comme nt urine C S if indicated by UA Name Collection Type:: Clean-Voided Midstream Performed By: #### A DDONUAPLUS #### [address] Specificy [place],Urine 1.016 Normal 1.001-1.030 [facility] Comment on above: Order Comment: Comme nt urine C S if indicated by UA Name Collection Type:: Clean-Voided Midstream Performed By: #### A DDONUAPLUS #### [address] Squamous Epithelial Cell,Urine 0-1 Normal 0-2 [facility] Comment on above: Order Comment: Comme nt urine C S if indicated by UA Name Collection Type:: Clean-Voided Midstream Performed By: #### A DDONUAPLUS #### [facility] [address] [place] [address] Urobilinogen,Urine Normal Normal Normal [facility] Comment on above: Order Comment: Comme nt urine C S if indicated by UA Name Collection Type:: Clean-Voided Midstream Performed By: #### A DDONUAPLUS #### [facility] [address] [place] [address] WBC,Urine 20-49 High 0-4 [facility] Comment on above: Order Comment: Comme nt urine C S if indicated by UA Name Collection Type:: Clean-Voided Midstream Performed By: #### A DDONUAPLUS #### [facility] [address] [place] [address] ECG 12 lead ECGon 08-20-2021 ECG 12 lead ECG [facility] [place] [address] [place] [address] Electrocardiograph Report Signed Patient: Isabel Waddell MR#: [id number] : 1960 Acct:[id number] Age/Sex: 61 / F ADM Date: 08/20/21 [...] When compared with ECG of 06-SEP-2020 08:27, CO interval has decreased T wave amplitude has increased in Inferior leads Confirmed by YUSEF GIRALDO DO ([id number]) on 08/20/2021 4:50:03 PM Referred By: LAURA Electronically Signed By:YUSEF GIRALDO DO Transcribed By: MUS Signed By Yusef Giraldo DO 08/20 1650 [facility] PST Type and Screenon 2020 ABO and Rh group Nom (Bld) Blood group O Rh(D) positive [facility] Comment on above: Order Comment: Date of Surgery: [id number] # of PRBC units on hold?: 2 Result Comment: PERF ORMED BY: [place] [address] PATHOLOGIST H[employer] CLAIRE ANTHONY M.D. Urine Cultureon 08-20-2021 Bacteria identified Cx Nom (U) Comment do C S if indicated by UA ORGANISM: Staphylococcus aureus (O:STAAUR) Fritch Count 30,000 Aerobic MARELY Charge (PC45) --- [...] RESISTANT TO ALL B-LACTAM DRUGS. PERFORMED BY: [place] [address] PATHOLOGIST H[employer] CLAIRE ANTHONY M.D. [facility] Comment on above: Performed By: #### C UU #### [address] [address] Cult,Urineon 07-08-2021 Cult,Urine Specimen Description .URINE Special Requests NOT REPORTED Culture NO SIGNIFICANT GROWTH Report Status FINAL 07/08/2021 Normal [facility] Comment on above: Performed By: #### U #### [facility] [address] [place], [place] [address] Drawbench Operator Helper: Rei Jules MD [facility] [address] [place] [address] Drawbench Operator Helper: Jacob Campos MD CBC Auto DifferentialOrdered By: Mayra Michel on 07-07-2021 Absolute Eos # 0.70 High [facility] Work Phone: Absolute Immature Granulocyte NOT REPORTED [facility] [employer] Work Phone: Absolute Lymph # 0.40 Low [facility] Work Phone: Absolute Bent # 0.50 [facility] Work Phone: Basophils (Bld) [#/Vol] 0.00 10*3/uL [facility] Work Phone: Basophils/100 WBC (Bld) 1 % 0 - 2 % [facility] Work Phone: Differential Type YES [facility] [employer] Work Phone: Eosinophils/100 WBC (Bld) 14 % High 0 - 5 % [facility] Work Phone: Hematocrit (Bld) [Volume fraction] 40.1 % 36 - 46 % [facility] [employer] Work Phone: Hemoglobin.gastrointes tinal spec 1 Ql (Stl) 13.8 g/dL 12.0 - 16.0 g/dL [facility] Work Phone: Immature Granulocytes NOT REPORTED 0 % [facility] Work Phone: Interpretation and review of laboratory results Abnormal [facility] Work Phone: Lymphocytes/100 WBC (Bld) 8 % Low 15 - 40 % [employer] Work Phone: MCH (RBC) [Entitic mass] 30.7 pg 26 - 34 pg [facility] Work Phone: MCHC (RBC) [Mass/Vol] 34.5 g/dL 31 - 37 g/dL M [facility] [employer] Work Phone: MCV (RBC) [Entitic vol] 89.1 fL 80 - 100 fL [facility] Work Phone: Monocytes/100 WBC (Bld) 10 % High 4 - 8 % [facility] Work Phone: NRBC Automated NOT REPORTED per 100 WBC [employer] [facility] Work Phone: Platelet distribution width (Bld) [Ratio] 13.0 % 12.1 - 15.2 % [employer] Phone: Platelet Estimate NOT REPORTED [facility] Phone: Platelet mean volume (Bld) [Entitic vol] NOT REPORTED 6.0 - 12.0 fL [employer] Work Phone: Platelets (Bld) [#/Vol] 157 10*3/uL [employer] Phone: RBC (Bld) [#/Vol] 4.50 10*6/uL 4.0 - 5.2 m/uL [employer] Phone: RBC (Bld) [#/Vol] NOT REPORTED [facility] Phone: Segmented neutrophils/100 WBC (Bld) 67 % 47 - 75 % [facility] Work Phone: Segs Absolute 3.40 [employer] Work Phone: WBC (Bld) [#/Vol] 5.1 10*3/uL [employer] Phone: WBC (Bld) [#/Vol] NOT REPORTED [facility] Phone: [employer] Work Phone: CBC with Diffon 07-07-2021 Abs. Basophil 0.00 k/uL Normal 0.0-0.2 [facility] Comment on above: Performed By: #### C DP, CP #### [facility] [address] [place] [address] Drawbench Operator Helper: Jacob Campos MD Abs.Neutrophil (Seg) 3.40 k/uL Normal 2.5-7.0 [facility] Comment on above: Performed By: #### C DP, CP #### [facility] [address] [place] [address] Drawbench Operator Helper: Jacob Campos MD Auto Diff Performed YES Normal [facility] Comment on above: Performed By: #### C DP, CP #### [facility] [address] [place] [address] Drawbench Operator Helper: Jacob Campos MD Basophils/100 WBC (Bld) 1 % Normal 0-2 [facility] Comment on above: Performed By: #### C DP, CP #### [facility] [address] [place] [address] Drawbench Operator Helper: Jacob Campos MD Eosinophils (Bld) [#/Vol] 0.70 10*3/uL High 0.0-0.4 [facility] Comment on above: Performed By: #### C DP, CP #### [facility] [address] [place] [phone] Drawbench Operator Helper: Jacob Campos MD Eosinophils/100 WBC (Bld) 14 % High 0-5 [facility] Comment on above: Performed By: #### C DP, CP #### [facility] [address] [place] [address] Drawbench Operator Helper: Jacob Campos MD Erythrocyte distribution width (RBC) [Ratio] 13.0 % Normal 12.1-15.2 [facility] Comment on above: Performed By: #### C DP, CP #### [facility] [address] [place], [place] [id number] Drawbench Operator Helper: Jacob Campos MD Hematocrit (Bld) [Volume fraction] 40.1 % Normal 36-46 [facility] Comment on above: Performed By: #### C DP, CP #### [facility] [address] [place] [phone] Drawbench Operator Helper: Jacob Campos MD Hemoglobin (Bld) [Mass/Vol] 13.8 g/dL Normal 12.0-16.0 [facility] Comment on above: Performed By: #### C DP, CP #### [facility] [address] [place] [address] Drawbench Operator Helper: Jacob Campos MD Lymphocytes (Bld) [#/Vol] 0.40 10*3/uL Low 1.0-4.8 [facility] Comment on above: Performed By: #### C DP, CP #### [facility] [address] [place] [id number] Drawbench Operator Helper: Jacob Campos MD Lymphocytes/100 WBC (Bld) 8 % Low 15-40 [facility] Comment on above: Performed By: #### C DP, CP #### [facility] [address] [place] [address] Drawbench Operator Helper: Jacob Campos MD MCH (RBC) [Entitic mass] 30.7 pg Normal 26-34 [facility] Comment on above: Performed By: #### C DP, CP #### [facility] [address] [place] [address] Drawbench Operator Helper: Jacob Campos MD MCHC (RBC) [Mass/Vol] 34.5 g/dL Normal 31-37 [facility] Comment on above: Performed By: #### C DP, CP #### [facility] [address] [place] [address] Drawbench Operator Helper: Jacob Campos MD MCV (RBC) [Entitic vol] 89.1 fL Normal 80-100 [facility] Comment on above: Performed By: #### C DP, CP #### [facility] [address] [place], [place] [phone] Drawbench Operator Helper: Jacob Campos MD Monocytes (Bld) [#/Vol] 0.50 10*3/uL Normal 0.0-1.0 [facility] Comment on above: Performed By: #### C DP, CP #### [facility] [address] [place] [address] Drawbench Operator Helper: Jacob Campos MD Monocytes/100 WBC (Bld) 10 % High 4-8 [facility] Comment on above: Performed By: #### C DP, CP #### [facility] [address] [place], [place] [phone] ([phone] Drawbench Operator Helper: Jacob Campos MD Neutrophil (Seg) 67 % Normal 47-75 [facility] Comment on above: Performed By: #### C DP, CP #### [facility] [address] [place] [address] Drawbench Operator Helper: Jacob Campos MD Platelets (Bld) [#/Vol] 157 10*3/uL Normal 140-450 [facility] Comment on above: Performed By: #### C DP, CP #### [facility] [address] [place] [address] Drawbench Operator Helper: Jacob Campos MD RBC (Bld) [#/Vol] 4.50 10*6/uL Normal 4.0-5.2 [facility] Comment on above: Performed By: #### C DP, CP #### [facility] [address] [place], [place] [phone] ([phone] Drawbench Operator Helper: Jacob Campos MD WBC (Bld) [#/Vol] 5.1 10*3/uL Normal 3.5-11.0 [facility] Comment on above: Performed By: #### C DP, CP #### [facility] [address] [place], [place] [id number] Drawbench Operator Helper: Jacob Campos MD Abs.Imm.Granulocyte NOT REPORTED Normal 0.00-0.30 [facility] Comment on above: Performed By: #### C DP, CP #### [facility] [address] [place], [place] [id number] Drawbench Operator Helper: Jacob Campos MD Immature Granulocyte NOT REPORTED Normal 0 [facility] Comment on above: Performed By: #### C DP, CP #### [facility] [address] [place] [phone] Drawbench Operator Helper: Jacob Campos MD MPV NOT REPORTED Normal 6.0-12.0 [facility] Comment on above: Performed By: #### C DP, CP #### [facility] [address] [place] [address] Drawbench Operator Helper: Jacob Campos MD NRBC Automated NOT REPORTED Normal [facility] Comment on above: Performed By: #### C DP, CP #### [facility] [address] [place], [place] [id number] Drawbench Operator Helper: Jacob Campos MD Platelet Estimate NOT REPORTED Normal [facility] Comment on above: Performed By: #### C DP, CP #### [facility] [address] [place] [phone] Drawbench Operator Helper: Jacob Campos MD RBC morphology finding Nom (Bld) NOT REPORTED Normal [facility] Comment on above: Performed By: #### C DP, CP #### [facility] [address] [place], [place] [id number] Drawbench Operator Helper: Jacob Campos MD WBC Morphology NOT REPORTED Normal [facility] Comment on above: Performed By: #### C DP, CP #### [facility] [address] [place], [place] [phone] Drawbench Operator Helper: Jacob Campos MD Comp Metabolic Profon 2020 (cont.) Normal [facility] Comment on above: Result Comment: Aver age GFR for 60-69 years old: 85 mL/min/1.73sq m Chronic Kidney Disease: <60 mL/min/1.73sq m Kidney failure: <15 mL/min/1.73sq m eGFR calculated using average adult body mass. Additional eGFR calculator available at: http://www.Giggzo.Weblio/multiple_crcl_2011.htm Performed By: #### C DP, CP #### [facility] [address] [place], [place] [id number] Drawbench Operator Helper: Jacob Campos MD Albumin [Mass/Vol] 3.9 g/dL Normal 3.5-5.2 [facility] Comment on above: Performed By: #### C DP, CP #### [facility] [address] [place], [place] [phone] Drawbench Operator Helper: Jacob Campos MD Alkaline Phos 94 U/L Normal 35-104 [facility] Comment on above: Performed By: #### C DP, CP #### [facility] [address] [place], [place] [phone] Drawbench Operator Helper: Jacob Campos MD ALT [Catalytic activity/Vol] 31 U/L Normal 5-33 [facility] Comment on above: Performed By: #### C DP, CP #### [facility] [address] [place], [place] [phone] Drawbench Operator Helper: Jacob Campos MD Anion gap [Moles/Vol] 10 mmol/L Normal 9-17 [facility] Comment on above: Performed By: #### C DP, CP #### [facility] [address] [place] [address] Drawbench Operator Helper: Jacob Campos MD AST [Catalytic activity/Vol] 28 U/L Normal <32 [facility] Comment on above: Performed By: #### C DP, CP #### [facility] [address] [place] [address] Drawbench Operator Helper: Jacob Campos MD Bilirubin [Mass/Vol] 0.46 mg/dL Normal 0.30-1.20 [facility] Comment on above: Performed By: #### C DP, CP #### [facility] [address] [place] [address] Drawbench Operator Helper: Jacob Campos MD BUN/CRE Ratio 27 High 9-20 [facility] Comment on above: Performed By: #### C DP, CP #### [facility] [address] [place] [address] Drawbench Operator Helper: Jacob Capmos MD Calcium [Mass/Vol] 9.7 mg/dL Normal 8.6-10.4 [facility] Comment on above: Performed By: #### C DP, CP #### [facility] [address] [place] [address] Drawbench Operator Helper: Jacob Campos MD Chloride [Moles/Vol] 107 mmol/L Normal 98-107 [facility] Comment on above: Performed By: #### C DP, CP #### [facility] [address] [place] [address] Drawbench Operator Helper: Jacob Campos MD CO2 [Moles/Vol] 25 mmol/L Normal 20-31 [facility] Comment on above: Performed By: #### C DP, CP #### [facility] [address] [place] [address] Drawbench Operator Helper: Jacob Campos MD Creatinine [Mass/Vol] 0.60 mg/dL Normal 0.50-0.90 [facility] Comment on above: Performed By: #### C DP, CP #### [facility] [address] [place], [place] [phone] Drawbench Operator Helper: Jacob Campos MD GFR, Amer >60 Normal >60 [facility] Comment on above: Performed By: #### C DP, CP #### [facility] [address] [place], [place] [id number] Drawbench Operator Helper: Jacob Campos MD GFR,non Amer >60 Normal >60 [facility] Comment on above: Performed By: #### C DP, CP #### [facility] [address], [place] [id number] Drawbench Operator Helper: Jacob Campos MD Glucose [Mass/Vol] 122 mg/dL High 70-99 [facility] Comment on above: Performed By: #### C DP, CP #### [facility] [address] [place] [address] Drawbench Operator Helper: Jacob Campos MD Potassium [Moles/Vol] 3.8 mmol/L Normal 3.7-5.3 [facility] Comment on above: Performed By: #### C DP, CP #### [facility] [address] [place] [address] Drawbench Operator Helper: Jacob Campos MD Protein [Mass/Vol] 6.9 g/dL Normal 6.4-8.3 [facility] Comment on above: Performed By: #### C DP, CP #### [facility] [address] [facility] [place] [id number] Drawbench Operator Helper: Jacob Campos MD Sodium [Moles/Vol] 142 mmol/L Normal 135-144 [facility] Comment on above: Performed By: #### C DP, CP #### [facility] [address], [place] [id number] Drawbench Operator Helper: Jacob Campos MD Urea nitrogen [Mass/Vol] 16 mg/dL Normal 8-23 [facility] Comment on above: Performed By: #### C DP, CP #### [facility] [address] [place] [address] Drawbench Operator Helper: Jacob Campos MD Albumin/Glob Ratio NOT REPORTED Normal 1.0-2.5 [facility] Comment on above: Performed By: #### C DP, CP #### [facility] [address] [place] [address] Drawbench Operator Helper: Jacob Campos MD Staging: NOT REPORTED Normal [facility] Comment on above: Performed By: #### C DP, CP #### [facility] [address] [place] [address] Drawbench Operator Helper: Jacob Campos MD Comprehensive Metabolic Pane lOrdered By: Mayra Michel on 07-07-2021 Albumin [Mass/Vol] 3.9 g/dL 3.5 - 5.2 g/dL [employer] Phone: Albumin/Globulin Ratio NOT REPORTED [employer] Phone: ALP (Bld) [Catalytic activity/Vol] 94 U/L 35 - 104 U/L [employer] Phone: ALT [Catalytic activity/Vol] 31 U/L 5 - 33 U/L [employer] Phone: Anion gap [Moles/Vol] 10 mmol/L 9 - 17 mmol/L [employer] Phone: AST [Catalytic activity/Vol] 28 U/L <32 [employer] Phone: Bilirubin [Mass/Vol] 0.46 mg/dL 0.30 - 1.20 mg/dL [employer] Phone: Calcium [Mass/Vol] 9.7 mg/dL 8.6 - 10. 4 mg/dL [employer] Phone: Chloride [Moles/Vol] 107 mmol/L 98 - 10 7 mmol/L [employer] Phone: CO2 [Moles/Vol] 25 mmol/L 20 - 31 mmol/L [employer] Phone: Creatinine [Mass/Vol] 0.6 mg/dL 0.50 - 0.90 mg/dL [employer] Phone: Free PSA/Total PSA [Mass fraction] 6.9 g/dL 6.4 - 8.3 g/dL [employer] Phone: GFR >60 >60 mL/min [employer] Phone: GFR Non- >60 >60 mL/min [employer] Phone: GFR/1.73 sq M.predicted MDRD (S/P/Bld) [Vol rate/Area] [employer] Phone: Comment on above: Average GFR for 60-6 9 years old: 85 mL/min/1.73sq m Chronic Kidney Disease: <60 mL/min/1.73sq m Kidney failure: <15 mL/min/1.73sq m eGFR calculated using average adult body mass. Additional eGFR calculator available at: http://www.[employer]multiple_crcl_2012.htm GFR/1.73 sq M.predicted MDRD (S/P/Bld) [Vol rate/Area] NOT REPORTED [employer] Phone: Glucose [Mass/Vol] 122 mg/dL High 70 - 99 mg/dL [employer] Phone: Interpretation and review of laboratory results Abnormal [employer] Phone: Potassium [Moles/Vol] 3.8 mmol/L 3.7 - 5.3 mmol/L [employer] Phone: Sodium [Moles/Vol] 142 mmol/L 135 - 144 mmol/L [employer] Phone: Urea nitrogen (BldV) [Mass/Vol] 16 mg/dL 8 - 23 mg/dL [employer] Work Phone: Urea nitrogen/Creatinine (Bld) [Mass ratio] 27 High [facility] [employer] Work Phone: [facility] Work Phone: Microscopic UrinalysisOrdere d By: Mayra Servinitrov on 07-07-2021 - [facility] [employer] [facility] Work Phone: Amorphous, UA NOT REPORTED None [facility] Work Phone: Bacteria, UA 2+ Abnormal None [facility] [employer] Work Phone: Casts UA NOT REPORTED /LPF [facility] [employer] Work Phone: Crystals, UA NOT REPORTED None /HPF [facility] Work Phone: Epithelial Cells UA 5 TO 10 /HPF [facility] Work Phone: Interpretation and review of laboratory results Abnormal [facility] [employer] Work Phone: Mucus, UA 1+ Abnormal None [facility] [employer] Work Phone: Other Observations UA NOT REPORTED NOT REQ. M [facility] [employer] Work Phone: RBC, UA 5 TO 10 [facility] [employer] Work Phone: Renal Epithelial, UA NOT REPORTED 0 /HPF [facility] [employer] Work Phone: Trichomonas, UA NOT REPORTED None [facility] [employer] Work Phone: WBC, UA 2 TO 5 0 /HPF [facility] [employer] Work Phone: Yeast, UA NOT REPORTED None [facility] [employer] Work Phone: [facility] [employer] Work Phone: UrinalysisOrdered By: Olamide ruelas Marilu on 07-07-2021 Bilirubin Urine Negative NEGATIVE [facility] Work Phone: Color, UA YELLOW YELLOW [facility] [employer] Work Phone: Glucose, Ur Negative NEGATIVE [employer] Phone: Interpretation and review of laboratory results Abnormal [employer] Phone: Ketones Ql (U) Negative NEGATIVE [facility] Work Phone: Leukocyte esterase Test strip Ql (U) 1+ Abnormal NEGATIVE [employer] Phone: Nitrite, Urine Negative NEGATIVE [facility] Work Phone: pH, UA 6.0 [employer] Phone: Protein, UA TRACE Abnormal NEGATIVE [employer] Phone: Specific [place], UA 1.020 [employer] Phone: Turbidity UA CLEAR CLEAR [employer] Phone: Urinalysis Comments [employer] Phone: Urine Hgb TRACE Abnormal NEGATIVE [employer] Phone: Urobilinogen, Urine Normal Normal [facility] Phone: [employer] Phone: Urinalysis, Routineon 2020 Bilirubin, SemiQt,Ur Negative Normal NEG [facility] Comment on above: Performed By: #### U MICAO, UA #### [facility] [address] [place] [address] Drawbench Operator Helper: Jacob Campos MD Blood, Urine TRACE Abnormal NEG [facility] Comment on above: Performed By: #### U MICAO, UA #### [facility] [address] [place] [address] Drawbench Operator Helper: Jacob Campos MD Clarity (U) CLEAR Normal CLEAR [facility] Comment on above: Performed By: #### U MICAO, UA #### [facility] [address] [place] [address] Drawbench Operator Helper: Jacob Campos MD Color (U) YELLOW Normal YEL [facility] Comment on above: Performed By: #### U EULALIAO, UA #### [facility] [address], [place] [address] Drawbench Operator Helper: Jacob Campos MD Comment Normal [facility] Comment on above: Performed By: #### U EULALIAO, UA #### [facility] [address], [place] [id number] Drawbench Operator Helper: Jacob Campos MD Glucose Ql (U) Negative Normal NEG [facility] Comment on above: Performed By: #### U EULALIAO, UA #### [facility] [address], [place] [id number] Drawbench Operator Helper: Jacob Campos MD Ketones Ql (U) Negative Normal NEG [facility] Comment on above: Performed By: #### U MICAO, UA #### [facility] [address], [place] [id number] Drawbench Operator Helper: Jacob Campos MD Leukocyte esterase Test strip Ql (U) 1+ Abnormal NEG [facility] Comment on above: Performed By: #### U MICAO, UA #### [facility] [address], [place] 20435[address] Drawbench Operator Helper: Jacob Campos MD Nitrite,Ur Negative Normal NEG [facility] Comment on above: Performed By: #### U MICAO, UA #### [facility] [address] [facility] [place] [id number] Drawbench Operator Helper: Jacob Campos MD PH,Ur 6.0 Normal 5.0-8.0 [facility] Comment on above: Performed By: #### U MICAO, UA #### [facility] [address] [facility] [place] [id number] Drawbench Operator Helper: Jacob Campos MD Protein Ql (U) TRACE Abnormal NEG [facility] Comment on above: Performed By: #### U MICAO, UA #### [facility] [address], [place] 18[address] Drawbench Operator Helper: Jcaob Campos MD Spec. [place],Ur 1.020 Normal 1.005-1.030 [facility] Comment on above: Performed By: #### U EULALIAO, UA #### [facility] [address], [place] [address] Drawbench Operator Helper: Jacob Campos MD Urobilinogen,Ur Normal Normal NORM [facility] Comment on above: Performed By: #### U RICH UA #### [facility] [address] [place] [address] Drawbench Operator Helper: Jacob Campos MD Urinalysis,Microon 1 ----- Normal [facility] Comment on above: Performed By: #### U RICH UA #### [facility] [address], [place] [id number] Drawbench Operator Helper: Jacob Campos MD Bacteria 2+ Abnormal NONE [facility] Comment on above: Performed By: #### U RICH UA #### [facility] [address] [place] [address] Drawbench Operator Helper: Jacob Campos MD Epithelial cells LM Ql (Urine sed) 5 TO 10 Normal [facility] Comment on above: Performed By: #### U EULALIAO, UA #### [facility] [address], [place] 043[address] Drawbench Operator Helper: Jacob Campos MD Mucus Strands 1+ Abnormal NONE [facility] Comment on above: Performed By: #### U RICH, UA #### [facility] [address], [place] 22233[address] Drawbench Operator Helper: Jacob Campos MD Urine RBC's 5 TO 10 Normal 0-2 [facility] Comment on above: Performed By: #### U EULALIAO, UA #### [facility] [address] [place] [address] Drawbench Operator Helper: Jacob Campos MD Urine WBC's 2 TO 5 Normal 0 [facility] Comment on above: Performed By: #### U MICAO, UA #### [facility] [address], [place] [address] Drawbench Operator Helper: Jacob Campos MD Amorphous sediment LM Ql (Urine sed) NOT REPORTED Normal NONE [facility] Comment on above: Performed By: #### U MICAO, UA #### [facility] [address], [place] 67[address] Drawbench Operator Helper: Jacob Campos MD Casts NOT REPORTED Normal [facility] Comment on above: Performed By: #### U MICAO, UA #### [facility] [address], [place] 66394[address] Drawbench Operator Helper: Jacob Campos MD Crystals LM Nom (Urine sed) NOT REPORTED Normal [facility] Comment on above: Performed By: #### U EULALIAO, UA #### [facility] [address], [place] 615[address] Drawbench Operator Helper: Jacob Campos MD Epithelial, Renal NOT REPORTED Normal 0 [facility] Comment on above: Performed By: #### U EULALIAO, UA #### [facility] [address] [facility] [place] 6977690 Drawbench Operator Helper: Jacob Campos MD Other Observations NOT REPORTED Normal NREQ [facility] Comment on above: Performed By: #### U MICAO, UA #### [facility] [address], [place] 443[address] Drawbench Operator Helper: Jacob Campos MD Trichomonas NOT REPORTED Normal [facility] Comment on above: Performed By: #### U MICAO, UA #### [facility] [address] [place] [address] Drawbench Operator Helper: Jacob Campos MD Yeast NOT REPORTED Normal NONE [facility] Comment on above: Performed By: #### U KRISSY VILLANUEVA #### [facility] [address] [place] [address] Drawbench Operator Helper: Jacob Campos MD XR hand RT min 3V*on 021 XR hand RT min 3V* [facility] Main [address] [address] XRay Report Signed Patient: Isabel Waddell MR#: [id number] : 1960 Acct:[id number] Age/Sex: 60 / F ADM Date: 03/28/21 Loc: [facility] [place]: Type: [facility] Attending Dr: [...] Mckayla Rai M.D.03/28/2021 1:26 PM Dictation Location: [place] [address] Transcribed By: [facility] 03/28/21 1326 Dictated By: Mckayla Rai MD 03/28/21 132 Signed By: 03/28/21 1326 Normal [facility] BIOAVAILABLE TESTOSTERONE FE MALE, CHILDon 11-29-2019 Albumin [Mass/Vol] 4.3 g/dL Normal 3.6-5.1 [facility] Comment on above: Result Comment: Age and Gender Specific Reference Interval Applied Interpretive Information: Total Testosterone Reference Interval (ng/dL) Premenopausal 9 - 55 Postmenopausal 5 - 32 Bioavailable Testosterone (ng/dL) Postmenopausal 1.5 - 9.4 Free Testosterone Reference Interval (pg/mL) Postmenopausal 0.6 - 3.8 This test was developed and its performance characteristics determined by [facility] ([facility]). It has not been cleared or approved by the U.S. Food and Drug Administration (FDA). The FDA has determined that such clearance or approval is not necessary. This test is used for clinical purposes and should not be regarded as investigational or for research. [facility] is qualified to perform high complexity testing under the Clinical Laboratory Improvement Amendments (CLIA). Test performed at [facility] [address] [place] [address], [address] [place] [address] Licensed Weigher: Adi Barksdale M.D. CLIA Number [id number] CAP Accreditation Number [id number] ------- [facility] [address] [place] [address] CLIA No. [id number] CAP Accreditation No. [id number] Licensed Weigher: Isiah Burr M.D. Performed By: #### 1 000, 4500, 4510, 4520, 01225, 5000, 54484, 66005 #### [facility] [employer] Unless Otherwise Noted [address] [place] [address] / COLA #4724/CLIA # [id number] SEX HORM BINDING GLOBULIN 56.3 nmol/L Normal 17.3-125.0 [facility] Comment on above: Performed By: #### 1 000, 4500, 4510, 4520, 19758, 5000, 47693, 66578 #### [facility] Unless Otherwise Noted [address] [address] / COLA #4724/CLIA # [id number] TESTOSTERONE BIO FEMALE 2.9 ng/dL Normal 1.5-9.4 [facility] Comment on above: Performed By: #### 1 000, 4500, 4510, 4520, 43270, 5000, 66137, 36765 #### [facility] [employer] Unless Otherwise Noted [address] [address] / COLA #4724/CLIA # [id number] TESTOSTERONE FREE FEMALE 1.3 pg/mL Normal 0.6-3.8 [facility] and [facility] Comment on above: Performed By: #### 1 000, 4500, 4510, 4520, 45930, 5000, 13911, 77011 #### [facility] Unless Otherwise Noted [address] [place] [address] / COLA #4724/CLIA # [id number] TESTOSTERONE, ULTRASENSITIVE 10 ng/dL Normal 9-55 [facility] Comment on above: Performed By: #### 1 000, 4500, 4510, 4520, 60867, 5000, 23696, 97175 #### [facility] Unless Otherwise Noted [address] [address] / COLA #4724/CLIA # [id number] ADRENOCORTICOTROPIC HORMon 0 11-27-2019 ADRENOCORTICOTROPIC HORM 18.1 PG/ML Normal 7.2-63.3 [facility] Comment on above: Result Comment: Reference range established for normal adult patients, morning blood draw (7-10 AM). Certain synthetic ACTH fragments may interfere with this assay. Test performed at [facility] [address] [place] [address] CLIA Number [id number] [facility] Accreditation Number [id number] ------- Performed By: #### 1 000, 4500, 4510, 4520, 89660, 5000, 00143, 34046 #### [facility] Unless Otherwise Noted [address] [place] [address] / COLA #4724/CLIA # [id number] IGF-1on 11-27-2019 IGF-1 151 NG/ML Normal 43-187 [facility] Comment on above: Result Comment: Test performed at [facility] [address] [place] [address] [place] Number [id number] [facility] Accreditation Number [id number] ------- Performed By: #### 1 000, 4500, 4510, 4520, 64731, 5000, 06294, 82982 #### [facility] Unless Otherwise Noted [address] [place] [address] / COLA #4724/CLIA # [id number] CORTISOL Delonte 11-26-2019 CORTISOL AM 8.6 UG/DL Normal 4.5-22.7 [facility] Comment on above: Performed By: #### 1 000, 4500, 4510, 4520, 39271, 5000, 40066, 05773 #### [facility] Unless Otherwise Noted [address] [place] [address] [place] [address] / COLA #4724/CLIA # [id number] FSHon 11-26-2019 FSH 26.30 mlU/mL Normal [facility] Comment on above: Result Comment: REFE RENCE RANGES FOR FEMALES: OVULATING FEMALE: FOLLICULAR PHASE 1.98-11.6 PEAK 5.14-23.4 LUTEAL PHASE 1.38-9.58 POSTMENOPAUSAL FEMALE 21.5-131 Performed By: #### 4 530, 4540, 4550, 4577 #### [facility] Unless Otherwise Noted [address] [address] / COLA #4724/CLIA # [id number] LHon 11-26-2019 LH 23.00 mIU/ml Normal [facility] and [facility] Comment on above: Result Comment: REFE RENCE RANGES FOR FEMALE: OVULATING FEMALE: FOLLICULAR PHASE 2.58-12.1 PEAK 27.3-96.9 LUTEAL PHASE 0.83-15.5 POSTMENOPAUSAL FEMALE 13.1-86.5 Performed By: #### 4 530, 4540, 4550, 4577 #### [facility] Unless Otherwise Noted [address] [address] / COLA #4724/CLIA # [id number] PROLACTINon 11-26-2019 PROLACTIN 17.3 ng/ml Normal 2.1-47.6 [facility] Comment on above: Result Comment: IVELISSE ENOPAUSAL FEMALE 2.1 - 47.6 POSTMENOPAUSAL FEMALE 0.0 - 41.4 Performed By: #### 1 000, 4500, 4510, 4520, 30423, 5000, 40917, 71799 #### [facility] Unless Otherwise Noted [address] [address] / COLA #4724/CLIA # [id number] CBC W/AUTO DIFFon 11-25-2019 ABS BASOPHILS 0.0 X10E9/L Normal 0-0.9 [facility] Comment on above: Result Comment: Perf ormed at [facility] [address] [facility] [address] Performed By: #### 1 000, 4500, 4510, 4520, 59350, 5000, 04687, 91495 #### [facility] Unless Otherwise Noted [address] [address] / COLA #4724/CLIA # [id number] ABS NEUTROPHILS 2.6 X10E9/L Normal 1.5-6.6 [facility] Comment on above: Performed By: #### 1 000, 4500, 4510, 4520, 23839, 5000, 25906, 67409 #### [facility] and Diabetes [facility] Unless Otherwise Noted [address] [address] / COLA #4724/CLIA # [id number] Basophils/100 WBC (Bld) 0.6 % Normal [facility] Comment on above: Performed By: #### 1 000, 4500, 4510, 4520, 53856, 5000, 75851, 83308 #### [facility] and [facility] Unless Otherwise Noted [address] [address] / COLA #4724/CLIA # [id number] Eosinophils (Bld) [#/Vol] 0.2 10*3/uL Normal 0.0-0.4 [facility] Comment on above: Performed By: #### 1 000, 4500, 4510, 4520, 09055, 5000, 09630, 41273 #### [facility] Unless Otherwise Noted [address] [address] / COLA #4724/CLIA # [id number] Eosinophils/100 WBC (Bld) 3.1 % Normal [facility] Comment on above: Performed By: #### 1 000, 4500, 4510, 4520, 97284, 5000, 28918, 72512 #### [facility] and Diabetes [facility] Unless Otherwise Noted [address] [address] / COLA #4724/CLIA # [id number] Erythrocyte distribution width (RBC) [Ratio] 13.3 % Normal 11.5-14.7 [facility] Comment on above: Performed By: #### 1 000, 4500, 4510, 4520, 42735, 5000, 61729, 49716 #### [facility] and [facility] Unless Otherwise Noted [address] [address] / COLA #4724/CLIA # [id number] Hematocrit (Bld) [Volume fraction] 39.4 % Normal 35-47 [facility] Comment on above: Performed By: #### 1 000, 4500, 4510, 4520, 53370, 5000, 15616, 73702 #### [facility] and [facility] Unless Otherwise Noted [address] [address] / COLA #4724/CLIA # [id number] Hemoglobin (Bld) [Mass/Vol] 13.3 g/dL Normal 11.7-16.0 [facility] Comment on above: Performed By: #### 1 000, 4500, 4510, 4520, 60832, 5000, 72161, 30615 #### [facility] and [facility] Unless Otherwise Noted [address] [address] / COLA #4724/CLIA # [id number] Lymphocytes (Bld) [#/Vol] 1.8 10*3/uL Normal 1.0-3.5 [facility] Comment on above: Performed By: #### 1 000, 4500, 4510, 4520, 96394, 5000, 53660, 93481 #### [facility] and [facility] Unless Otherwise Noted [address] [address] / COLA #4724/CLIA # [id number] Lymphocytes/100 WBC (Bld) 35.0 % Normal [facility] Comment on above: Performed By: #### 1 000, 4500, 4510, 4520, 76000, 5000, 09474, 86412 #### [facility] Unless Otherwise Noted [address] / COLA #4724/CLIA # [id number] MCH (RBC) [Entitic mass] 31.2 pg Normal 26-33.5 [facility] Comment on above: Performed By: #### 1 000, 4500, 4510, 4520, 46807, 5000, 57416, 47686 #### [facility] Unless Otherwise Noted [address] / COLA #4724/CLIA # [id number] MCHC (RBC) [Mass/Vol] 33.7 g/dL Normal 32-36 [facility] Comment on above: Performed By: #### 1 000, 4500, 4510, 4520, 63663, 5000, 30923, 88293 #### [facility] and [facility] Unless Otherwise Noted [address] [address] / COLA #4724/CLIA # [id number] MCV (RBC) [Entitic vol] 93 fL Normal 81-100 [facility] Comment on above: Performed By: #### 1 000, 4500, 4510, 4520, 03561, 5000, 34857, 22579 #### [facility] [employer] [employer] Unless Otherwise Noted [address] [place] [address] / COLA #4724/CLIA # [id number] Monocytes (Bld) [#/Vol] 0.5 10*3/uL Normal 0-0.9 [facility] Comment on above: Performed By: #### 1 000, 4500, 4510, 4520, 66347, 5000, 82498, 10723 #### [facility] Unless Otherwise Noted [address] [place] [address] / COLA #4724/CLIA # [id number] Monocytes/100 WBC (Bld) 10.0 % Normal [facility] Comment on above: Performed By: #### 1 000, 4500, 4510, 4520, 88124, 5000, 64913, 66847 #### [facility] and [facility] Unless Otherwise Noted [address] [place] [address] / COLA #4724/CLIA # [id number] Neutrophils/100 WBC (Bld) 51.3 % Normal [facility] Comment on above: Performed By: #### 1 000, 4500, 4510, 4520, 67944, 5000, 29061, 15957 #### [facility] Unless Otherwise Noted [address] [address] / COLA #4724/CLIA # [id number] Platelet mean volume (Bld) [Entitic vol] 8.8 fL Normal 7-12 [facility] Comment on above: Performed By: #### 1 000, 4500, 4510, 4520, 62821, 5000, 02196, 92393 #### [facility] Unless Otherwise Noted [address] [facility] [address] [place] [address] / COLA #4724/CLIA # [id number] Platelets (Bld) [#/Vol] 225 10*3/uL Normal 150-450 [facility] Comment on above: Performed By: #### 1 000, 4500, 4510, 4520, 08624, 5000, 57087, 65989 #### [facility] Unless Otherwise Noted [address] [address] / COLA #4724/CLIA # [id number] RBC (Bld) [#/Vol] 4.25 X10E12/L Normal 3.80-5.20 [facility] Comment on above: Performed By: #### 1 000, 4500, 4510, 4520, 78195, 5000, 15115, 32401 #### [facility] Unless Otherwise Noted [address] [address] / COLA #4724/CLIA # [id number] WBC (Bld) [#/Vol] 5.1 10*3/uL Normal 4.8-10.8 [facility] Comment on above: Performed By: #### 1 000, 4500, 4510, 4520, 20290, 5000, 36757, 02612 #### [facility] Unless Otherwise Noted [address] [address] / COLA #4724/CLIA # [id number] [facility] 11-25-2019 Albumin [Mass/Vol] 4.2 g/dL Normal 3.5-5.0 [facility] Comment on above: Performed By: #### 1 000, 4500, 4510, 4520, 92789, 5000, 69072, 11550 #### [facility] Unless Otherwise Noted [address] [address] / COLA #4724/CLIA # [id number] ALP [Catalytic activity/Vol] 103.0 U/L Normal 38.0-126.0 [facility] and Diabetes [facility] Comment on above: Performed By: #### 1 000, 4500, 4510, 4520, 27195, 5000, 00735, 40836 #### [facility] Unless Otherwise Noted [address] [address] / COLA #4724/CLIA # [id number] ALT [Catalytic activity/Vol] 62.0 U/L Normal 13.0-69.0 [facility] and [facility] Comment on above: Performed By: #### 1 000, 4500, 4510, 4520, 14634, 5000, 73957, 91087 #### [facility] Unless Otherwise Noted [address] [place] [address] / COLA #4724/CLIA # [id number] Anion gap [Moles/Vol] 4.0 mmol/L Low 10.0-15.0 End [facility] Comment on above: Performed By: #### 1 000, 4500, 4510, 4520, 93560, 5000, 78781, 68367 #### [facility] Unless Otherwise Noted [address] [address] / COLA #4724/CLIA # [id number] AST [Catalytic activity/Vol] 30.0 U/L Normal 15.0-46.0 [facility] and [facility] Comment on above: Performed By: #### 1 000, 4500, 4510, 4520, 32172, 5000, 72148, 44696 #### [facility] Unless Otherwise Noted [address] [place] [address] / COLA #4724/CLIA # [id number] Bilirubin Ql (U) 0.50 mg/dL Normal 0.20-1.30 [facility] Comment on above: Performed By: #### 1 000, 4500, 4510, 4520, 58310, 5000, 02631, 77452 #### [facility] Unless Otherwise Noted [address] [place], [place] [address] / COLA #4724/CLIA # [id number] BUN/Cre Ratio 32.9 Ratio High 7.0-27.0 [facility] and [facility] Comment on above: Performed By: #### 1 000, 4500, 4510, 4520, 03832, 5000, 82213, 58833 #### [facility] Unless Otherwise Noted [address] [place] [address] / COLA #4724/CLIA # [id number] Calcium [Mass/Vol] 9.5 mg/dL Normal 8.4-10.2 [facility] Diabetes [facility] Comment on above: Performed By: #### 1 000, 4500, 4510, 4520, 81858, 5000, 63647, 22884 #### [facility] Unless Otherwise Noted [address] [place] [address] / COLA #4724/CLIA # [id number] Chloride [Moles/Vol] 102.0 mmol/L Normal 98.0-107.0 En [facility] Diabetes [facility] Comment on above: Performed By: #### 1 000, 4500, 4510, 4520, 16936, 5000, 63497, 46503 #### [facility] Unless Otherwise Noted [address] [address] / COLA #4724/CLIA # [id number] CO2 [Moles/Vol] 31.0 mmol/L High 22.0-30.0 [facility] Comment on above: Performed By: #### 1 000, 4500, 4510, 4520, 06841, 5000, 41485, 99178 #### [facility] Unless Otherwise Noted [address] [address] / COLA #4724/CLIA # [id number] Creatinine [Mass/Vol] 0.7 mg/dL Normal 0.5-1.0 End [facility] Comment on above: Performed By: #### 1 000, 4500, 4510, 4520, 18369, 5000, 74534, 16721 #### [facility] Unless Otherwise Noted [address] [address] / COLA #4724/CLIA # [id number] GFR/1.73 sq M predicted among blacks MDRD (S/P/Bld) [Vol rate/Area] 110.1 ml/m1.73 Normal [facility] Comment on above: Performed By: #### 1 000, 4500, 4510, 4520, 73977, 5000, 23744, 60754 #### [facility] Unless Otherwise Noted [address] [address] / COLA #4724/CLIA # [id number] GFR/1.73 sq M predicted among non-blacks MDRD (S/P/Bld) [Vol rate/Area] 91.0 ml/m1.73 Normal [facility] Comment on above: Performed By: #### 1 000, 4500, 4510, 4520, 20727, 5000, 34651, 42520 #### [facility] Unless Otherwise Noted [address] [place] [address] / COLA #4724/CLIA # [id number] GFR/1.73 sq M predicted among non-blacks MDRD (S/P/Bld) [Vol rate/Area] 96.2 ml/m1.73 Normal [facility] Comment on above: Performed By: #### 1 000, 4500, 4510, 4520, 34211, 5000, 64031, 70164 #### [facility] Unless Otherwise Noted [address] [place] [address] / COLA #4724/CLIA # [id number] Glucose [Mass/Vol] 109.0 mg/dL High 74.0-106.0 [facility] Comment on above: Performed By: #### 1 000, 4500, 4510, 4520, 21292, 5000, 51388, 72942 #### [facility] Unless Otherwise Noted [address] [place] [address] / COLA #4724/CLIA # [id number] Potassium [Moles/Vol] 4.3 mmol/L Normal 3.5-5.1 End [facility] Diabetes [facility] Comment on above: Performed By: #### 1 000, 4500, 4510, 4520, 93094, 5000, 57022, 93997 #### [facility] Unless Otherwise Noted [address] [place], [place] [address] / COLA #4724/CLIA # [id number] Protein [Mass/Vol] 6.8 g/dL Normal 6.3-8.2 [facility] Comment on above: Performed By: #### 1 000, 4500, 4510, 4520, 17911, 5000, 40968, 01328 #### [facility] Unless Otherwise Noted [address] [place] [address] / COLA #4724/CLIA # [id number] Sodium [Moles/Vol] 137.0 mmol/L Normal 137.0-145.0 [facility] Comment on above: Performed By: #### 1 000, 4500, 4510, 4520, 06408, 5000, 59822, 55274 #### [facility] and Diabetes [facility] Unless Otherwise Noted [address] [place], [place] [address] / COLA #4724/CLIA # [id number] Urea nitrogen [Mass/Vol] 23.0 mg/dL High 7.0-17.0 [facility] Comment on above: Performed By: #### 1 000, 4500, 4510, 4520, 42298, 5000, 59231, 45225 #### [facility] and Diabetes [facility] Unless Otherwise Noted [address] [place], [place] [address] / COLA #4724/CLIA # [id number] FT3on 11-25-2019 FT3 4.39 pg/mL Normal 2.71-6.16 [facility] Comment on above: Performed By: #### 1 000, 4500, 4510, 4520, 04219, 5000, 01668, 89054 #### [facility] Unless Otherwise Noted [address] [address] / COLA #4724/CLIA # [id number] FT4on 11-25-2019 Free T4 [Mass/Vol] 0.95 ng/dL Normal 0.64-1.79 [facility] Comment on above: Performed By: #### 1 000, 4500, 4510, 4520, 47318, 5000, 98897, 14588 #### [facility] Unless Otherwise Noted [address] [facility] [address] [place] [address] / COLA #4724/CLIA # [id number] TSHon 11-25-2019 TSH Qn 0.35 uIU/ml Low 0.47-4.68 [facility] Comment on above: Performed By: #### 1 000, 4500, 4510, 4520, 23307, 5000, 13232, 09171 #### [facility] Unless Otherwise Noted [address] [facility] [address] [place] [address] / COLA #4724/CLIA # [id number] Vital Signs Date Time Vital Sign Value Performing Clinician Facility 11-26-2024 09:20-0500 Body height 167.64 cm [facility] 11-26-2024 09:20-0500 Body mass index (BMI) [Ratio] 25.4 kg/m2 [facility] 11-26-2024 09:20-0500 Body weight 71.66 kg [facility] 11-26-2024 09:20-0500 Diastolic blood pressure 91 mm[Hg] [facility] 11-26-2024 09:20-0500 Heart rate 97 /min [facility] 11-26-2024 09:20-0500 Respiratory rate 12 /min [facility] 11-26-2024 09:20-0500 Systolic blood pressure 159 mm[Hg] [facility] 08-05-2024 11:44-0400 Body height 167.6 cm Henry Ramos MD Work Phone: [facility] 08-05-2024 11:44-0400 Body mass index (BMI) [Ratio] 23.88 kg/m2 Henry Ramos MD Work Phone: [facility] 08-05-2024 11:44-0400 Body temperature 99 [degF] Henry Ramos MD Work Phone: [facility] 08-05-2024 11:44-0400 Body weight 67.1 kg Henry Ramos MD Work Phone: [facility] 08-05-2024 11:44-0400 Diastolic blood pressure 75 mm[Hg] Henry Ramos MD Work Phone: [facility] 08-05-2024 11:44-0400 Heart rate 81 /min Henry Ramos MD Work Phone: [facility] 08-05-2024 11:44-0400 SaO2% (BldA) [Mass fraction] 97 % Henry Ramos MD Work Phone: [facility] 08-05-2024 11:44-0400 Systolic blood pressure 141 mm[Hg] Henry Ramos MD Work Phone: [facility] 06-29-2024 11:36-0400 Body height 167.64 cm [facility] 06-29-2024 11:36-0400 Body mass index (BMI) [Ratio] 22.6 kg/m2 [facility] 06-29-2024 11:36-0400 Body weight 63.67 kg [facility] 06-29-2024 11:36-0400 Diastolic blood pressure 81 mm[Hg] [facility] 06-29-2024 11:36-0400 Heart rate 86 /min [facility] 06-29-2024 11:36-0400 Respiratory rate 12 /min [facility] 06-29-2024 11:36-0400 Systolic blood pressure 135 mm[Hg] [facility] 05-04-2024 13:01-0400 Body height 167.64 cm [facility] 05-04-2024 13:01-0400 Body mass index (BMI) [Ratio] 22.6 kg/m2 [facility] 05-04-2024 13:01-0400 Body weight 63.5 kg [facility] 05-04-2024 13:01-0400 Diastolic blood pressure 78 mm[Hg] [facility] 05-04-2024 13:01-0400 Heart rate 88 /min [facility] 05-04-2024 13:01-0400 SaO2% (BldA) [Mass fraction] 98 % [facility] 05-04-2024 13:01-0400 Systolic blood pressure 136 mm[Hg] [facility] 09-29-2023 10:33-0500 Body height 167.6 cm South Saba DO Work Phone: [facility] 09-29-2023 10:33-0500 Body weight 62.14 kg South Saba DO Work Phone: [facility] 09-12-2023 10:00-0400 Body height 167.64 cm Roland Ball Other [facility] [employer] Other 09-12-2023 10:00-0400 Body mass index (BMI) [Ratio] 23.05 kg/m2 Roland Ball Other [facility] [employer] Other 09-12-2023 10:00-0400 Body weight 64.77 kg Roland Ball Other [employer] Other 09-12-2023 10:00-0400 Diastolic blood pressure 75 mm[Hg] Roland Ball Other [employer] Other 09-12-2023 10:00-0400 Respiratory rate 12 /min Roland Ball Other [employer] Other 09-12-2023 10:00-0400 Systolic blood pressure 131 mm[Hg] Roland Ball Other [employer] Other 08-29-2023 10:55-0400 Body height 167.6 cm Elder Galan APRN.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 DIRECTOR Work Phone: [facility] 10-13-2023 10:55-0400 Body temperature 98.01 [degF] Elder Angelia TITLE ABSTRACTOR.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 DIRECTOR Work Phone: [facility] 08-29-2023 10:55-0400 Body weight 66.68 kg Elder Angelia TITLE ABSTRACTOR.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 DIRECTOR Work Phone: [facility] 08-29-2023 10:55-0400 Diastolic blood pressure 78 mm[Hg] Elder Angelia TITLE ABSTRACTOR.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 DIRECTOR Work Phone: [facility] 08-29-2023 10:55-0400 Heart rate 82 /min Elder Angelia TITLE ABSTRACTOR.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 DIRECTOR Work Phone: [facility] 08-29-2023 10:55-0400 SaO2% (BldA) [Mass fraction] 99 % Elder Angelia TITLE ABSTRACTOR.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 DIRECTOR Work Phone: [facility] 08-29-2023 10:55-0400 Systolic blood pressure 163 mm[Hg] Elder Angelia TITLE ABSTRACTOR.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 DIRECTOR Work Phone: [facility] 08-29-2023 10:03-0400 Body temperature 98.01 [degF] Heidi Hatfield MD Work Phone: [facility] 08-29-2023 10:03-0400 Body weight 66.68 kg Heidi Hatfield MD Work Phone: [facility] 08-29-2023 10:03-0400 Diastolic blood pressure 77 mm[Hg] Heidi Hatfield MD Work Phone: [facility] 08-29-2023 10:03-0400 Heart rate 82 /min Heidi Hatfield MD Work Phone: [facility] 08-29-2023 10:03-0400 Respiratory rate 16 /min Heidi Hatfield MD Work Phone: [facility] 08-29-2023 10:03-0400 SaO2% (BldA) [Mass fraction] 99 % Heidi Hatfield MD Work Phone: [facility] 08-29-2023 10:03-0400 Systolic blood pressure 157 mm[Hg] Heidi Hatfield MD Work Phone: [facility] 07-04-2023 09:18-0400 Body height 167.6 cm South Jayant DO Work Phone: [facility] 07-04-2023 09:18-0400 Body temperature 97.59 [degF] South Jayant DO Work Phone: [facility] 07-04-2023 09:18-0400 Body weight 66.5 kg South Jayant DO Work Phone: [facility] 07-04-2023 09:18-0400 Diastolic blood pressure 68 mm[Hg] South Jayant DO Work Phone: [facility] 07-04-2023 09:18-0400 Heart rate 73 /min South Jayant DO Work Phone: [facility] 07-04-2023 09:18-0400 SaO2% (BldA) [Mass fraction] 100 % South Jayant DO Work Phone: [facility] 07-04-2023 09:18-0400 Systolic blood pressure 139 mm[Hg] South Jayant DO Work Phone: [facility] 06-27-2023 10:30-0400 Body temperature 97.39 [degF] Heidi Hatfield MD Work Phone: [facility] 06-27-2023 10:30-0400 Body weight 69.4 kg Heidi Hatfield MD Work Phone: [facility] 06-27-2023 10:30-0400 Diastolic blood pressure 76 mm[Hg] Heidi Hatfield MD Work Phone: [facility] 06-27-2023 10:30-0400 Heart rate 70 /min Heidi Hatfield MD Work Phone: [facility] 06-27-2023 10:30-0400 Respiratory rate 16 /min Heidi Hatfield MD Work Phone: [facility] 06-27-2023 10:30-0400 SaO2% (BldA) [Mass fraction] 97 % Heidi Hatfield MD Work Phone: [facility] 06-27-2023 10:30-0400 Systolic blood pressure 141 mm[Hg] Heidi Hatfield MD Work Phone: [facility] 05-23-2023 09:45-0400 Body height 167.64 cm Roland Ball Other [employer] Other 05-23-2023 09:45-0400 Body mass index (BMI) [Ratio] 24.79 kg/m2 Roland Ball Other [employer] Other 05-23-2023 09:45-0400 Body weight 69.67 kg Roland Ball Other [employer] Other 05-23-2023 09:45-0400 Diastolic blood pressure 78 mm[Hg] Roland Ball Other [employer] Other 05-23-2023 09:45-0400 Respiratory rate 12 /min Roland Ball Other [employer] Other 05-23-2023 09:45-0400 Systolic blood pressure 158 mm[Hg] Roland Ball Other [employer] Other 04-23-2023 13:30-0400 Body height 167.64 cm Roland Ball Other [employer] Other 04-23-2023 13:30-0400 Body mass index (BMI) [Ratio] 24.34 kg/m2 Roland Ball Other [employer] Other 04-23-2023 13:30-0400 Body weight 68.4 kg Roland Ball Other [employer] Other 04-23-2023 13:30-0400 Diastolic blood pressure 74 mm[Hg] Roland Ball Other [employer] Other 04-23-2023 13:30-0400 Respiratory rate 12 /min Roland Ball Other [employer] Other 04-23-2023 13:30-0400 Systolic blood pressure 131 mm[Hg] Roland Ball Other [employer] Other 03-05-2023 09:30-0400 Body height 167.6 cm Cherelle Pack TITLE ABSTRACTOR.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 DIRECTOR Work Phone: [facility] 03-05-2023 09:30-0400 Body weight 70.22 kg Cherelle Pack TITLE ABSTRACTOR.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 DIRECTOR Work Phone: [facility] 03-05-2023 09:30-0400 Diastolic blood pressure 90 mm[Hg] Cherelle Pack TITLE ABSTRACTOR.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 DIRECTOR Work Phone: [facility] 03-05-2023 09:30-0400 Heart rate 85 /min Cherelle Pack TITLE ABSTRACTOR.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 DIRECTOR Work Phone: [facility] 03-05-2023 09:30-0400 Systolic blood pressure 152 mm[Hg] Cherelle Pack TITLE ABSTRACTOR.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 DIRECTOR Work Phone: [facility] 01-24-2023 08:45-0500 Body height 167.64 cm Roland Ball Other [employer] Other 01-24-2023 08:45-0500 Body mass index (BMI) [Ratio] 24.05 kg/m2 Roland Ball Other [employer] Other 01-24-2023 08:45-0500 Body temperature 96.7 [degF] Roland Ball Other [employer] Other 01-24-2023 08:45-0500 Body weight 67.59 kg Roland Ball Other [employer] Other 01-24-2023 08:45-0500 Diastolic blood pressure 93 mm[Hg] Roland Ball Other [employer] Other 01-24-2023 08:45-0500 Systolic blood pressure 165 mm[Hg] Roland Ball Other [employer] Other 01-20-2023 13:35-0500 Body height 167.64 cm Olya Sanjuanita Other [employer] Other 01-20-2023 13:35-0500 Body mass index (BMI) [Ratio] 24.53 kg/m2 Olya Sanjuanita Other [employer] Other 01-20-2023 13:35-0500 Body temperature 97.3 [degF] Olya Sanjuanita Other [employer] Other 01-20-2023 13:35-0500 Body weight 68.95 kg Olya Sanjuanita Other [employer] Other 01-20-2023 13:35-0500 Respiratory rate 18 /min Olya Sanjuanita Other [employer] Other 01-20-2023 13:35-0500 SaO2% (BldA) [Mass fraction] 95 % Olya Sanjuanita Other [employer] Other 01-03-2023 15:27-0500 Body height 167.6 cm Henry Ramos MD Work Phone: [facility] 01-03-2023 15:27-0500 Body temperature 97.81 [degF] Henry Ramos MD Work Phone: [facility] 01-03-2023 15:27-0500 Body weight 71.17 kg Henry Ramos MD Work Phone: [facility] 01-03-2023 15:27-0500 Diastolic blood pressure 87 mm[Hg] Henry Ramos MD Work Phone: [facility] 01-03-2023 15:27-0500 Heart rate 95 /min Henry Ramos MD Work Phone: [facility] 01-03-2023 15:27-0500 SaO2% (BldA) [Mass fraction] 99 % Henry Ramos MD Work Phone: [facility] 01-03-2023 15:27-0500 Systolic blood pressure 141 mm[Hg] Henry Ramos MD Work Phone: [facility] 09-26-2022 12:30-0500 Diastolic blood pressure 89 mm[Hg] Leila Alamo MD Work Phone: [facility] 09-26-2022 12:30-0500 Heart rate 79 /min Leila Alamo MD Work Phone: [facility] 09-26-2022 12:30-0500 Respiratory rate 18 /min Leila Alamo MD Work Phone: [facility] 09-26-2022 12:30-0500 SaO2% (BldA) [Mass fraction] 98 % Leila Alamo MD Work Phone: [facility] 09-26-2022 12:30-0500 Systolic blood pressure 140 mm[Hg] Leial Alamo MD Work Phone: [facility] 09-26-2022 11:25-0500 Body height 167.6 cm Leila Alamo MD Work Phone: [facility] 09-26-2022 11:25-0500 Body temperature 98.2 [degF] Leila Alamo MD Work Phone: [facility] 09-26-2022 11:25-0500 Body weight 68.04 kg Leila Alamo MD Work Phone: [facility] 08-07-2022 15:28-0400 Body weight 68.95 kg Henry Ramos MD Work Phone: [facility] 08-07-2022 15:28-0400 Diastolic blood pressure 91 mm[Hg] Henry Ramos MD Work Phone: [facility] 08-07-2022 15:28-0400 SaO2% (BldA) [Mass fraction] 98 % Henry Ramos MD Work Phone: [facility] 08-07-2022 15:28-0400 Systolic blood pressure 132 mm[Hg] Henry Ramos MD Work Phone: [facility] 03-13-2022 14:38-0400 Body height 169.5 cm Henry Ramos MD Work Phone: [facility] 03-13-2022 14:38-0400 Body temperature 96.8 [degF] Henry Ramos MD Work Phone: [facility] 03-13-2022 14:38-0400 Body weight 66.32 kg Henry Ramos MD Work Phone: [facility] 03-13-2022 14:38-0400 Diastolic blood pressure 96 mm[Hg] Henry Ramos MD Work Phone: [facility] 03-13-2022 14:38-0400 Heart rate 85 /min Henry Ramos MD Work Phone: [facility] 03-13-2022 14:38-0400 Respiratory rate 16 /min Henry Ramos MD Work Phone: [facility] 03-13-2022 14:38-0400 SaO2% (BldA) [Mass fraction] 98 % Henry Ramos MD Work Phone: [facility] 03-13-2022 14:38-0400 Systolic blood pressure 151 mm[Hg] Henry Ramos MD Work Phone: [facility] 07-07-2021 14:50-0400 Diastolic blood pressure 101 mm[Hg] Mayra Michel MD Work Phone: [employer] Work Phone: 07-07-2021 14:50-0400 Heart rate 70 /min Mayra Michel MD Work Phone: [employer] Work Phone: 07-07-2021 14:50-0400 Respiratory rate 13 /min Mayra Michel MD Work Phone: [employer] Work Phone: 07-07-2021 14:50-0400 SaO2% (BldA) [Mass fraction] 99 % Mayra Michel MD Work Phone: [employer] Work Phone: 07-07-2021 14:50-0400 Systolic blood pressure 133 mm[Hg] Mayra Michel MD Work Phone: [employer] Work Phone: 07-07-2021 13:25-0400 Body height 167.6 cm Mayra Michel MD Work Phone: [employer] Work Phone: 07-07-2021 13:25-0400 Body mass index (BMI) [Ratio] 24.19 kg/m2 Mayra Michel MD Work Phone: [employer] Work Phone: 07-07-2021 13:25-0400 Body temperature 98.6 [degF] Mayra Michel MD Work Phone: [employer] Work Phone: 07-07-2021 13:25-0400 Body weight 67.99 kg Mayra Michel MD Work Phone: [employer] Work Phone: 11-25-2019 16:19-0500 Body weight 70.4 Kg [facility] Comment on above: Performed By: #### 1000, 4500, 4510, 452 0, 37392, 5000, 35297, 11564 #### [facility] Unless Otherwise Noted [address] [place] [address] / COLA #4724/CLIA # [id number] Encounters Encounter Date Encounter Type Care Provider Facility Start: 12-10-2024 End: 12-10-2024 ambulatory EDWARD BARROS [facility] Start: 12-10-2024 End: 12-10-2024 Office outpatient new 45 minutes Edward Barros MD Work Phone: [facility] Comment on above: Lumbar [...] leg paresthesias Start: 11-26-2024 End: 11-26-2024 ambulatory [facility] Work Phone: Start: 11-26-2024 End: 11-26-2024 Patient encounter procedure [facility] Work Phone: Start: 11-01-2024 Non-patient / Non-visit [facility] Work Phone: Start: 11-01-2024 End: [...] End: 10-07-2024 Bamboo flowsheet Leigh A Felter TITLE ABSTRACTOR-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 DIRECTOR Work Phone: [facility] Start: 10-07-2024 End: 10-07-2024 Bamboo flowsheet Leigh A Felter TITLE ABSTRACTOR-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 DIRECTOR Work Phone: [facility] Start: 10-07-2024 End: 10-07-2024 ambulatory LEIGH A FELTER Not Available Start: 10-07-2024 End: 10-07-2024 Office outpatient visit 15 minutes Leigh A Felter TITLE ABSTRACTOR-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 DIRECTOR Work Phone: [facility] Comment on above: Seborrheic keratosis (Primary Dx); Melanocytic nevus of trunk Start: 09-15-2024 Non-patient / Non-visit Critical Access Hospital Physician [facility] Work Phone: Start: 08-19-2024 End: 08-19-2024 Telemedicine consultation with patient Melody Mena TITLE ABSTRACTOR.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 DIRECTOR Work Phone: Gynecology Oncology Start: 08-19-2024 End: 08-19-2024 ambulatory MELODY MENA Facility:[facility] Comment on above: NO SHOW (Primary Dx) Start: 08-18-2024 End: 08-18-2024 Telephone encounter Ernesto Chacko BETTY.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 DIRECTOR Work Phone: Gynecology Oncology Comment on above: [...] methimaz ole Start: 06-29-2024 End: 06-29-2024 ambulatory [facility] Work Phone: Start: 06-29-2024 End: 06-29-2024 Patient encounter procedure Critical Access [facility] Physician [facility] Work Phone: Start: 06-25-2024 Non-patient / Non-visit Critical Access Hospital Physician [facility] Work Phone: Start: 05-19-2024 Non-patient / Non-visit Critical Access Hospital Physician [facility] Work Phone: Start: 05-12-2024 End: 05-12-2024 ambulatory MARY LAU Not Available Start: 05-04-2024 End: 05-04-2024 Patient encounter procedure [facility] Work Phone: Start: 05-03-2024 Non-patient / Non-visit Critical Access Hospital Physician [facility] [employer] Work Phone: Start: 03-26-2024 End: 03-26-2024 ambulatory MARY LAU STEPANIC Not Available Start: 03-05-2024 End: 03-05-2024 ambulatory MARY LAU STEPANIC Not Available Start: 02-13-2024 End: 02-13-2024 ambulatory MARY LAU STEPANIC Not Available Start: 12-17-2023 End: 12-17-2023 ambulatory Roland Serrano Other [employer] Other Start: 12-17-2023 Telephone encounter Roland VOGT [facility] Start: 10-23-2023 End: 10-23-2023 ambulatory Roland Maggie Other [employer] Other Start: 10-23-2023 Telephone encounter Roland [facility]GT [facility] Start: 09-29-2023 End: 09-29-2023 ambulatory ROLAND SERRANO Facility:[facility] Start: 09-29-2023 End: 09-29-2023 Patient encounter procedure South Saba DO Work Phone: Colorectal Surgery Comment on above: Radiation proctitis (Primary Dx); Endometrial cancer (HCC) Start: 09-21-2023 End: 09-21-2023 ambulatory Roland Serrano Other [employer] Other Start: 09-21-2023 Telephone encounter Roland VOGT [facility] Start: 09-18-2023 End: 09-18-2023 ambulatory Roland Maggie Other [employer] Other Start: 09-18-2023 Telephone encounter Roland VOGT [facility] Start: 09-17-2023 End: 09-17-2023 ambulatory Roland Maggie Other [employer] Other Start: 09-17-2023 Telephone encounter Roland VOGT [facility] Start: 09-15-2023 End: 09-15-2023 ambulatory Roland Serrano Other [employer] Other Start: 09-15-2023 Telephone encounter Roland Ball [facility] Start: 09-14-2023 End: 09-14-2023 ambulatory Roland Ball Other [employer] Other Start: 09-14-2023 Telephone encounter Roland Ball [facility] Start: 09-12-2023 End: 09-12-2023 ambulatory Roland Maggie Other [employer] Other Start: 09-12-2023 Encounter for genera l adult medical examination without abnormal findings Roland Ball [facility] Start: 09-12-2023 Periodic preventive med est patient 40-64yrs Roland Serrano [facility] Start: 09-10-2023 End: 09-10-2023 ambulatory Roland Serrano Other [employer] Other Start: 09-10-2023 Telephone encounter Roland Ball [facility] Start: 09-03-2023 End: 09-03-2023 ambulatory Roland Serrano Other [employer] Other Start: 09-03-2023 Telephone encounter Roland Ball [facility] Start: 09-02-2023 Telephone encounter Roland Ball [facility] Start: 09-02-2023 End: 09-02-2023 ambulatory ROLAND E BALL [facility] Other Start: 09-01-2023 End: 09-01-2023 ambulatory Roland Ball Other [employer] Other Start: 09-01-2023 Telephone encounter Roland Ball [facility] Start: 08-29-2023 End: 08-29-2023 ambulatory ROLAND E BALL Facility:[facility] Start: 08-29-2023 End: 08-29-2023 Preprocedural examination done Elder aGlan APRN.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 DIRECTOR Work Phone: [facility] Work Phone: Start: 08-29-2023 End: 08-29-2023 ambulatory ROLAND SERRANO Facility:[facility] Start: 08-29-2023 Encounter for other preprocedural examination ELDER GALAN [facility] Start: 08-29-2023 End: 08-29-2023 Patient encounter procedure Pulm Fct Lab Main 8 [facility] Comment on above: Dyspnea and [...] Only Heidi Hatfield MD Work Phone: Respiratory [place] Comment on above: ILD (interstitial lamont ng disease) (HCC) (Primary Dx) Start: 08-22-2023 ambulatory South rincon DO Work Phone: [facility] Start: 08-22-2023 Patient encounter procedure South Saba DO Work Phone: Colorectal Surgery Comment on above: Pre op appointment Start: 08-22-2023 End: 08-22-2023 Subsequent hospital visit by physician [facility] ([facility]) Work Phone: [facility] Radiology CT Scan Comment on above: Interstitial pulmona ry disease (HCC) [J84.9] Start: 08-04-2023 End: 08-04-2023 ambulatory Roland Serrano Other [employer] Other Start: 08-04-2023 Office outpatient vi sit 15 minutes Roland MONTAGUE [facility] Start: 07-22-2023 ambulatory South rincon DO Work Phone: Colorectal Surgery Start: 07-22-2023 Telephone encounter South Saba DO Work Phone: Colorectal Surgery Comment on above: Patient Update Start: 07-08-2023 End: 07-08-2023 ambulatory Roland Serrano Other [employer] Other Start: 07-08-2023 Telephone encounter Roland Serrano [facility] Start: 07-04-2023 ambulatory South Rendon estuardomadison DO [...] procedure Pulm Fct Lab Main 9 [facility] Comment on above: Interstitial pulmona ry disease (HCC) (Primary Dx); Other secondary pulmonary hypertension (HCC) Start: 05-26-2023 ambulatory Henry perales MD Work Phone: Gynecology Oncology Comment on above: Procitis Start: 05-23-2023 End: 05-23-2023 ambulatory Roland Serrano Other [employer] Other Start: 05-23-2023 Office outpatient vi sit 15 minutes Roland Serrano [facility] Start: 05-13-2023 End: 05-13-2023 ambulatory Roland Serrano Other [employer] Other Start: 05-13-2023 Telephone encounter Roland Serrano TORIE [facility] Start: 04-23-2023 End: 04-23-2023 ambulatory Roland Serrano Other [employer] Other Start: 04-23-2023 Patient encounter procedure Roland Serrano [facility] Start: 03-25-2023 End: 03-25-2023 ambulatory Roland Serrano Other [employer] Other Start: 03-25-2023 Telephone encounter Roland Serrano [facility] Start: 03-21-2023 Telephone encounter Roland Serrano [facility] Start: 03-21-2023 End: 03-22-[address] ROLAND SERRANO [facility] Other Start: 03-11-2023 End: 03-11-2023 ambulatory Roland Serrano Other [employer] Other Start: 03-11-2023 Telephone encounter Roland Serrano [facility] Start: 03-10-2023 End: 03-11-[address] ROLAND SERRANO [facility] Other Start: 03-10-2023 Telephone encounter Roland Serrano [facility] Start: 03-05-2023 End: 03-05-2023 Patient encounter procedure Cherelle Carol TITLE ABSTRACTOR.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 DIRECTOR Work Phone: Gastroenterology Comment on above: Rectal bleeding (Vivi nicho Dx) Start: 01-24-2023 End: 01-24-2023 ambulatory Roland Serrano Other [employer] Other Start: 01-24-2023 Office outpatient vi sit 15 minutes Roland Serrano [facility] Start: 01-23-2023 End: 01-23-2023 ambulatory Roland Serrano Other [employer] Other Start: 01-23-2023 Telephone encounter Roland Serrano [facility] Start: 01-20-2023 Office outpatient vi sit 15 minutes Olya Gann [facility] Start: 01-20-2023 End: 01-20-[address] ROLAND SERRANO [facility] Other Start: 01-07-2023 End: 01-07-2023 ambulatory Roland Serrano Other [employer] Other Start: 01-07-2023 Telephone encounter Roland Serrano [facility] Start: 01-03-2023 End: 01-04-2023 ambulatory Henry Ramos MD Work Phone: Gynecology Oncology Comment on above: Recurrent carcinoma of endometrium (HCC) (Primary Dx); Radiation proctitis; Blood per rectum Start: 01-03-2023 End: 01-04-2023 Patient encounter procedure Henry Ramos MD Work Phone: [facility] Start: 12-25-2022 Telephone encounter Aretha [...] examination without abnormal findings DR ROLAND SERRANO [facility] Start: 09-04-2022 End: 09-05-[address] ROLAND SERRANO Facility:[facility] Start: 09-04-2022 End: 09-05-2022 Encounter for general adult medical examination without abnormal findings DR ROLAND SERRANO Facility:[facility] Start: 08-29-2022 Adult health examination Roland Serrano Other [employer] Other Start: 08-29-2022 Encounter for genera l adult medical examination without abnormal findings Roland Serrano Other [employer] Other Start: 08-29-2022 Pre-procedure evaluation check Roland Serrano Other [employer] Other Start: 08-07-2022 End: 09-21-2022 ambulatory Henry Ramos MD Work Phone: Gynecology Oncology Comment on above: Recurrent carcinoma of endometrium (HCC) (Primary Dx); Radiation proctitis; Foreshortening of vagina; Endometrial cancer (HCC); Vaginal atrophy; Rectal bleeding Start: 08-07-2022 End: 08-07-2022 Patient encounter procedure Henry Ramos MD Work Phone: [facility] Start: 06-12-2022 End: 06-12-2022 ambulatory SALOMON JACOME Facility: Start: 03-13-2022 End: 03-13-2022 ambulatory Henry Ramos MD Work Phone: Gynecology Oncology Comment on above: Recurrent carcinoma of endometrium (HCC) (Primary Dx); Vaginal atrophy; Foreshortening of vagina Start: 03-13-2022 End: 03-13-2022 Patient encounter procedure Henry Ramos MD Work Phone: [facility] Start: 12-13-2021 End: 12-13-2021 Subsequent hospital visit by physician Arrival Time Radiology Work Phone: Radiology Pet CT Comment on above: Malignant neoplasm o f endometrium (HCC) [C54.1] Start: 11-21-2021 End: 11-22-2021 Emergency department patient visit [facility] Start: 07-07-2021 End: 07-07-2021 Emergency department patient visit [facility] Start: 07-07-2021 End: 07-07-2021 Emergency department patient visit Mayra Michel MD Work Phone: [facility] ED Comment on above: Dizziness (Primary D x); Dehydration Procedures Date Procedure Procedure Detail Performing Clinician Start: 11-01-2024 Radex hip unilateral with pelvis 2-3 views Dyan SOSA Work Phone: Start: 08-05-2024 [place]adna human papillom avirus high-risk types Ernesto Chacko APRN.CNP Work Phone: Start: 08-05-2024 Unlisted surgical pa thology procedure Ernesto Chacko APRN.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 DIRECTOR Work Phone: Start: 08-05-2024 Microscopic observat ion [Identifier] in Cervix by Cyto stain Leigh Valenzuela APRN-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 DIRECTOR Work Phone: Start: 05-04-2024 Quick Strep (POC) Start: 09-29-2023 Follow-up visit Follow Up [place] Start: 09-02-2023 Antibody screen MELODY MENA Comment on above: Order Comment: Speci men Type: BLOOD SPECIMENOrdering Facility: [facility] Address: [address] [place] [address] Performed By: #### T SCR ####CC MAIN BLOOD BANKCLIA [id number] [address] Start: 08-29-2023 Antibody screen MELODY MENA Comment on above: Order Comment: Speci men Type: BLOOD SPECIMENOrdering Facility: [facility] Address: [address] [place] [address] Performed By: #### T SCR ####CC MAIN BLOOD BANKCLIA [id number] [address] Start: 08-29-2023 Spmtry w/vc expirato ry [...] w /collj spec when pfrmd Ernesto Chacko APRN.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 DIRECTOR Work Phone: Start: 09-26-2022 Colonoscopy Leila Alamo MD Work Phone: Start: 12-13-2021 Ct abdomen & pelvis w/contrast material Ernesto Ginna TITLE ABSTRACTOR.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 DIRECTOR Work Phone: Start: 12-13-2021 Ct thorax w/contrast material Ernesto Chacko TITLE ABSTRACTOR.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 DIRECTOR Work Phone: Start: 11-02-2021 Antibody screen Comment on above: Order Comment: Trans fuse now? N Result Comment: PERF ORMED BY: [facility] [address] [place] [address] PATHOLOGIST [employer] CLAIRE ANTHONY M.D. Start: 10-15-2021 Antibody screen Comment on above: Order Comment: Date of Surgery: [id number] # of PRBC units on hold?: 2 Result Comment: PERF ORMED BY: [facility] [address] [place] [address] PATHOLOGIST [employer] CLAIRE ANTHONY M.D. Start: 09-20-2021 Adult depression scr eening assessment Henry Ramos MD Work Phone: Start: 08-20-2021 Antibody screen Comment on above: Order Comment: Date of Surgery: [id number] # of PRBC units on hold?: 2 Result Comment: PERF ORMED BY: [facility] [address] [place] [address] PATHOLOGIST HIST[employer] CLAIRE ANTHONY M.D. Start: 07-07-2021 Urinalysis microscopic only Mayra Michel MD Work Phone: Start: 07-07-2021 Urnls dip stick/tabl et rgnt auto w/o microscopy Mayra Michel MD Work Phone: Start: 07-07-2021 Comprehensive metabo lic panel Mayra Michel MD Work Phone: Start: 10-18-2019 Mammography Leigh Fe lter TITLE ABSTRACTOR-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 DIRECTOR Work Phone: Start: 06-11-2019 General examination of patient Roland Serrano Other Start: 06-11-2019 Screening for malign ant neoplasm of colon Roland Serrano Other Start: 05-05-2019 Microscopic observat ion [Identifier] in Cervix by Cyto stain Leigh Valenzuela APRN-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 DIRECTOR Work Phone: Screening for malign ant neoplasm of breast Roland Serrano Other Plan of Treatment Date Care Activity Detail Author Start: 2035 RSV High Risk: (Elde rly (60+) or Population) (1 - 1-dose 75+ series) RSV High Risk: (Elderly (60+) or Population) (1 - 1-dose 75+ series) [facility] Start: 09-26-2032 Screening for malign ant neoplasm of colon [facility] Start: 08-05-2029 Screening for malign ant neoplasm of cervix [facility] Start: 08-05-2027 Screening for malign ant neoplasm of cervix Pap Smear [facility] Start: 08-29-2026 [facility] Start: 07-04-2026 DIABETES SCREEN DIABETES SCREEN [facility] Start: 07-04-2026 [facility] Start: 10-06-2025 End: 10-06-2025 Patient encounter procedure 10/06/2025 11:05 AM EST Office Visit [facility] [address] [place] [address] Leigh Valenzuela APRN-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 DIRECTOR [address] [place] [address] [facility] Start: 08-05-2025 Screening for malign ant neoplasm of cervix Cervical Cancer Screening [facility] Start: 12-29-2024 End: 12-29-2024 Patient encounter procedure 12/29/2024 10:00 AM EST Office Visit [facility] [address] [place] [address] Jr. Mary Gatica, DO [address] [place] [address] [facility] Start: 12-10-2024 End: 12-10-2025 EMG & nerve conduction EMG & nerve conduction Neurology Routine Lumbar radiculopathy Expected: 12/10/2024 (Approximate), Expires: 12/10/2025 [facility] Work Phone: Comment on above: Expected: 12/10/2024 (Approximate), Expires: 12/10/2025 Start: 12-10-2024 End: 12-10-2025 XR Hip Views [facility] Work Phone: Comment on above: Expected: 12/10/2024 , Expires: 12/10/2025 Start: 12-02-2024 End: 12-02-2025 EMG AND NERVE CONDUCTION STUDY EMG AND NERVE CONDUCTION STUDY Neurology Routine Right leg paresthesias Expected: 12/02/2024 (Approximate), Expires: 12/02/2025 [facility] Work Phone: Comment on above: Expected: 12/02/2024 (Approximate), Expires: 12/02/2025 Start: 12-02-2024 End: 12-02-2024 Patient encounter procedure 12/02/2024 10:30 AM EST Office Visit [facility] [address] [facility] [address] [place] [address] Dyan Robb PA [address] [facility] [address] [place] [address] [facility] Start: 11-25-2024 End: 11-25-2024 Follow-up encounter 11/25/2024 1:50 PM EST Visit (SP) Office Gynecology Oncology [address] [place] [address] Henry Ramos MD [address] [place] [address] 4 MONTH FOLLOW UP Gynecology Oncology Comment on above: 4 MONTH FOLLOW UP Start: 11-03-2024 End: 11-03-2024 Patient encounter procedure 11/03/2024 1:00 PM EST Office Visit [facility] [address] [place] [address] Dyan Robb PA [address] [place] [address] [facility] Start: 11-01-2024 End: 11-01-2025 MR Lumbar spine WO contrast MR lumbar spine wo contrast Imaging Routine Lumbar radiculopathy, right Expected: 11/01/2024 (Approximate), Expires: 11/01/2025 [facility] Comment on above: Expected: 11/01/2024 (Approximate), Expires: 11/01/2025 Start: 11-01-2024 End: 11-01-2024 Patient encounter procedure [facility] Comment on above: History of right hip replacement (Primary Dx); Acute pain of right hip Start: 09-09-2024 End: 09-09-2024 Follow-up encounter Gynecology Oncology Comment on above: 1 Year/Annual Follow Up follow up; needs pap Start: 08-19-2024 End: 08-19-2024 ambulatory 08/19/2024 3:00 PM EDT [facility] Gynecology Oncology [address] [place] [address] Melody Mena APRN.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 DIRECTOR [address] [place] [address] TELEVISIT Gynecology Oncology Comment on above: TELEVISIT Start: 08-05-2024 End: 08-05-2024 Follow-up encounter 08/05/2024 11:10 AM EDT Visit (SP) Office Gynecology Oncology [address] [place] [address] Henry Ramos MD [address] [place] [address] Follow up Gynecology Oncology Comment on above: Follow up Start: 07-18-2024 Covid-19 Vaccine () Covid-19 Vaccine () [facility] Start: 07-18-2024 Covid-19 Vaccine ( season) Covid-19 Vaccine () [facility] Start: 07-18-2024 Influenza vaccination Influenza Vacc ine (#1) [facility] Start: 09-26-2023 Colonoscopy COLONOSCOPY [facility] Start: 09-26-2023 COLORECTAL CANCER SCREENING COLORECTAL CANCER SCREENING [facility] Start: 09-26-2023 Screening for malign ant neoplasm of colon [facility] Start: 08-26-2023 End: 09-24-2024 SPIROMETRY BASELINE ONLY SPIROMETRY BASELINE ONLY PFT Routine ILD (interstitial lung disease) (HCC) Expected: 08/26/2023, Expires: 09/24/2024 [facility] Work Phone: Comment on above: Expected: 08/26/2023 , Expires: 09/24/2024 Start: 07-22-2023 End: 09-21-2023 CBC W Auto Differential panel - Blood CBC + DIFF Lab Routine Radiation proctitis Expected: 07/22/2023, Expires: 09/21/2023 [facility] Work Phone: Comment on above: Expected: 07/22/2023 , Expires: 09/21/2023 Start: 07-22-2023 End: 09-21-2023 Comprehensive metabolic 2000 panel - Serum or Plasma COMP METABOLIC PANEL Lab Routine Radiation proctitis Expected: 07/22/2023 (Approximate), Expires: 09/21/2023 [facility] Work Phone: Comment on above: Expected: 07/22/2023 (Approximate), Expires: 09/21/2023 Start: 07-18-2023 Covid-19 Vaccine ( season) Covid-19 Vaccine () [facility] Start: 07-18-2023 Influenza vaccination C [facility] Start: 11-17-2022 DEPRESSION ASSESSMENT DEPRESSION ASS ESSMENT [facility] Start: 09-20-2022 Adult depression scr eening assessment DEPRESSION SCREENING [facility] Start: 08-12-2022 DIABETES SCREEN DIABETES SCREEN [facility] Start: 08-07-2022 End: 10-07-2022 CBC W Auto Differential panel - Blood CBC + DIFF Lab Routine Rectal bleeding Expected: 08/07/2022, Expires: 10/07/2022 [facility] Work Phone: Comment on above: Expected: 08/07/2022 , Expires: 10/07/2022 Start: 07-18-2022 Influenza vaccination C [facility] Start: 05-05-2022 Screening for malign ant neoplasm of cervix [facility] Start: 11-27-2021 COVID-19 VACCINE (3 - Booster for Moderna series) COVID-19 VACCINE (3 - Booster for Moderna series) [facility] Start: 11-17-2021 DEPRESSION ASSESSMENT DEPRESSION ASS ESSMENT [facility] Start: 08-22-2021 COVID-19 VACCINE (3 - Booster for Moderna series) COVID-19 VACCINE (3 - Booster for Moderna series) [facility] Start: 08-22-2021 COVID-19 VACCINE (3 - Moderna series) COVID-19 VACCINE (3 - Moderna series) [facility] Start: 07-18-2021 Influenza vaccination Flu vaccine (# 1) [employer] Work Phone: Start: 10-18-2020 Screening for malign ant neoplasm of breast [facility] Start: 2020 RSV Vaccine (1 - 1-d ose 60+ series) RSV Vaccine (1 - 1-dose 60+ series) [facility] Start: 2020 RSV Vaccine (1 - Ris k 60-74 years 1-dose series) RSV Vaccine (1 - Risk 60-74 years 1-dose series) [facility] Start: 2010 Pneumococcal vaccination Pneum ococcal Vaccine (1 of 1 - PCV) [facility] Start: 2010 SHINGRIX VACCINE (1 of 2) WESTON GRIX VACCINE (1 of 2) [facility] Start: 2010 Zoster Vaccines (1 of 2) Zoste r Vaccines (1 of 2) [facility] Start: 2005 COLOGUARD (FIT-DNA) COLOGUARD (FIT-D NA) [facility] Start: 2005 Colonoscopy COLONOSCOPY [facility] Start: 2005 COLORECTAL CANCER SCREENING COLORECTAL CANCER SCREENING [facility] Start: [address] COLONOGRAPHY [facility] Start: 2005 FECAL OCCULT BLOOD FECAL OCCULT BLOO D [facility] Start: 2005 Lipid 1996 panel - S marcela or Plasma Lipid Screening [facility] Start: 2005 Lipid panel Lipid Screening [facility] Start: 2005 LIPID SCREEN LIPID SCREEN [facility] Start: 2005 Screening for malign ant neoplasm of colon [facility] Start: 2005 SIGMOIDOSCOPY SIGMOIDOSCOPY [facility] Start: 2000 Mammography [facility] Start: 2000 Screening for malign ant neoplasm of breast Mammogram Screening [facility] Start: 1990 HPV TESTING HPV TESTING [facility] Start: 1990 Screening for malign ant neoplasm of cervix HPV/Cotest [facility] Start: 1982 DTaP/Tdap/Td Vaccine s (1 - Tdap) DTaP/Tdap/Td Vaccines (1 - Tdap) [facility] Start: 1981 PAP TESTING PAP TESTING [facility] Start: 1981 Screening for malign ant neoplasm of cervix [facility] Start: 1979 Urine microalbumin profile [facility] Start: 1978 ANNUAL PCP TEAM FINAL EXPENSE AGENT SHAILA DISEASE VISIT ANNUAL PCP TEAM CHRONIC DISEASE VISIT [facility] Start: 1978 Anxiety Screening Anxiety Screening [facility] Start: 1978 BP CONTROLLED (<130/80) BP CONTROLLE D (<130/80) [facility] Start: 1978 Depression Screening Depression Scre ening [facility] Start: 1978 HEPATITIS C SCREENING HEPATITIS C [facility] Start: 1978 Hepatitis C screening Hepatitis C [facility] Start: 1978 HIV SCREENING HIV SCREENING [facility] Start: 1978 HIV screening [facility] Scre[facility] [facility] Start: 1961 MMR Vaccines (1 of 1 - Standard series) MMR Vaccines (1 of 1 - Standard series) [facility] Start: 1960 HIV screening HIV Screening [facility] Start: 1960 Lipid panel Lipid Panel [facility] Start: 1960 Screening for malign ant neoplasm of colon [facility] Start: 1960 Yearly Adult Physical Yearly Adult P [facility] End: 03-05-2024 Colonoscopy COLONOSCOPY (THERAPEUTIC) Endoscopy Routine Rectal bleeding 1 Occurrences starting 03/05/2023 until 03/05/2024 [facility] Work Phone: Comment on above: 1 Occurrences starti ng 03/05/2023 until 03/05/2024 End: 07-26-2024 Ct thorax w/o contrast material CT CHEST WO IVCON Radiology Routine Interstitial pulmonary disease (HCC) 1 Occurrences starting 06/27/2023 until 07/26/2024 [facility] Work Phone: Comment on above: 1 Occurrences starti ng 06/27/2023 until 07/26/2024 End: 07-07-2021 Culture, Urine Culture, Urine Microbiology Routine Once for 1 Occurrences starting 07/07/2021 until 07/07/2021 [employer] Work Phone: Comment on above: Once for 1 Occurrenc es starting 07/07/2021 until 07/07/2021 Culture, Urine Culture, Urine Microbiology Routine 07/07/2021 2:00 PM EDT [employer] Work Phone: End: 06-27-2024 Echocardiography ECHO Cardiology Routine Other secondary pulmonary hypertension (HCC) 1 Occurrences starting 06/27/2023 until 06/27/2024 [facility] Work Phone: Comment on above: 1 Occurrences starti ng 06/27/2023 until 06/27/2024 H&P for surgery H&P FOR SURGERY Procedures Routine Radiation proctitis Ordered: 07/22/2023 [facility] Work Phone: Comment on above: Ordered: 07/22/2023 End: 07-26-2024 LUNG DIFFUSION CAPACITY (DLCO) LUNG DIFFUSION CAPACITY (DLCO) PFT Routine Interstitial pulmonary disease (HCC) 1 Occurrences starting 06/27/2023 until 07/26/2024 [facility] Work Phone: Comment on above: 1 Occurrences starti ng 06/27/2023 until 07/26/2024 LUNG DIFFUSION CAPAC ITY (DLCO) LUNG DIFFUSION CAPACITY (DLCO) PFT Routine Interstitial pulmonary disease (HCC) 08/29/2023 9:27 AM EDT [facility] Work Phone: End: 07-26-2024 LUNG VOLUMES LUNG VOLUMES PFT Routine Interstitial pulmonary disease (HCC) 1 Occurrences starting 06/27/2023 until 07/26/2024 [facility] Work Phone: Comment on above: 1 Occurrences starti ng 06/27/2023 until 07/26/2024 PAP TEST PAP TEST Lab Rou teri Vaginal bleeding History of endometrial cancer Ordered: 08/05/2024 [facility] Work Phone: Comment on above: Ordered: 08/05/2024 End: 07-26-2024 Pulmonary ventilation & perfusion imaging NM LUNG VENT / PERF VQ Radiology Routine Other secondary pulmonary hypertension (HCC) 1 Occurrences starting 06/27/2023 until 07/26/2024 [facility] Work Phone: Comment on above: 1 Occurrences starti ng 06/27/2023 until 07/26/2024 REFER FOR ADMIT INTERVIEW REFER FOR ADMIT INTERVIEW Procedures Routine Radiation proctitis Ordered: 07/22/2023 [facility] Work Phone: Comment on above: Ordered: 07/22/2023 End: 08-07-2023 Screening colonoscopy COLONOSCOPY SCREENING Endoscopy Routine Rectal bleeding 1 Occurrences starting 08/07/2022 until 08/07/2023 [facility] Work Phone: Comment on above: 1 Occurrences starti ng 08/07/2022 until 08/07/2023 End: 09-26-2022 Screening colonoscopy COLONOSCOPY SCREENING Endoscopy Routine Rectal bleeding 1 Occurrences starting 09/26/2022 until 09/26/2022 [facility] Work Phone: Comment on above: 1 Occurrences starti ng 09/26/2022 until 09/26/2022 SPIROMETRY BASELINE ONLY SPIROME TRY BASELINE ONLY PFT Routine ILD (interstitial lung disease) (HCC) 08/29/2023 9:27 AM EDT [facility] Work Phone: SPIROMETRY WITH DILA TOR IF OBSTRUCTED SPIROMETRY WITH DILATOR IF OBSTRUCTED PFT Routine Dyspnea, unspecified type 06/27/2023 10:15 AM EDT [facility] Work Phone: XR Lumbar spine View s W flexion and W extension XR lumbar spine 4+ views w flexion extension Imaging Routine Lumbar radiculopathy, right Ordered: 11/01/2024 [facility] Work Phone: Comment on above: Ordered: 11/01/2024 [facility] Immunizations Immunization Date Immunization Notes Care Provider [facility] 06-27-2021 COVID-19 vaccine, fu ll dose (MODERNA) Henry Ramos MD Work Phone: [facility] 11-21-2020 COVID-19 vaccine, fu ll dose (MODERNA) Henry Ramos MD Work Phone: [facility] Payers Date Payer Category Payer Erich [facility] [place] [id number] 2022 Erich rodríguez [facility] Care [facility] [id number] 2020 Unknown MMO MMO [employer] [id number] 2020-Present [phone] [address] [place] [address] PPO [id number] 2020 Unknown [id number]. [id number]. [id number] 1960 Unknown [id number] 2.16.840.1.316828.3.579.2. 174 1960 Unknown [id number] 2.16.840.1.123618.3.579.2. 174 1960 Unknown [id number] 2.16.840.1.795281.3.579.2. 593 1960 Unknown [id number] 2.16.840.1.253148.3.579.2. 593 1960 Unknown [id number] 2.16.840.1.556621.3.579.2. 593 1960 Unknown [id number] 2.16.840.1.234366.3.579.2. 593 1960 Unknown [id number] 2.16.840.1.368274.3.579.2. 593 1960 Unknown [id number] 2.16.840.1.512496.3.579.2. 593 1960 Unknown [id number] 2.16.840.1.000287.3.579.2. 593 1960 Unknown [id number] 2.16.840.1.788955.3.579.2. 9 1960 Unknown [id number] 2.16.840.1.779710.3.579.2. 1258 1960 Unknown [id number] 2.16.840.1.200125.3.579.2. 9 1960 Unknown [id number] 2.16.840.1.815012.3.579.2. 1258 1960 Unknown [id number] 2.16.840.1.998385.3.579.2. 9 1960 Unknown [id number] 2.16.840.1.828080.3.579.2. 1258 1960 Unknown [id number] 2.16.840.1.495125.3.579.2. 9 1960 Unknown [id number] 2.16.840.1.800121.3.579.2. 1258 1960 Unknown [id number] 2.16.840.1.440051.3.579.2. 9 1960 Unknown [id number] 2.16.840.1.719131.3.579.2. 9 1960 Unknown [id number] 2.16.840.1.012307.3.579.2. 1246 1959 Blue Cross Blue Shield [id number] 2.16.840.1.645803.19 1959 Unknown [id number] 1.2.840.524983.1.13.239.2. 7.3.258893.315 Self-pay Self Pay [id number] Social History Date Type Detail Facility Start: 07-07-2021 End: 12-10-2024 Tobacco smoking status NHIS Never smoker [facility] Start: 07-07-2021 End: 12-10-2024 Tobacco use and exposure Never used [facility] Start: 1960 Sex Assigned At Not on file [facility] [employer] Work Phone: Start: 10-29-2021 End: 12-10-2024 Exposure to SARS-CoV-2 (event) Not sure [facility] Start: 03-13-2022 End: 12-02-2024 Alcohol intake Current drinker of alcohol (finding) [facility] Start: 07-28-2019 History SDOH Alcohol Comment 3 drinks per month [facility] Start: 03-05-2023 End: 12-10-2024 Sex Assigned At [facility] Start: 03-05-2023 End: 12-10-2024 History of Social function [facility] Adult Depression Screening Assessment 0 [facility] Start: 1960 Sex Assigned At Female F [facility] How often to you hav e a drink containing alcohol? 2-4 times a month [facility] How many standard drinks containing alcohol do you have on a typical day? 1 or 2 [facility] How often do you hav e 6 or more drinks on 1 occasion? 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 Non-constrained polyethylene acetabular liner ()[id number] FDA Start: 11-02-2021 Minimally invasive revision of total replacement of hip Acetabulum prosthesis hole plug ()[id number] FDA Start: 11-02-2021 Minimally invasive revision of total replacement of hip Ceramic femoral head prosthesis ()[id number] FDA Start: 11-02-2021 Minimally invasive revision of total replacement of hip Coated hip femur prosthesis, modular ()[id number] FDA Start: 11-02-2021 Arthroplasty, thumb Tendon/ligam ent bone anchor, non-bioabsorbable ()[id number] FDA Start: 09-14-2020 Clinical Notes 12-13-2021 to [...] questions were answered. documented in this encounter [facility] Work Phone: 12-02-2024 History of Present illness Narrative Images from the original note were not included. HISTORY OF PRESENT ILLNESS: EST PT Isabel Waddell is an 64 y.o. @ female. (EST PT) (R) SHAAN 11/02/21 (~3 YRS, 1 MONTH) PT HERE FOR MRI LUMBAR RESULTS XRAY LUMBAR 11/01/24 @ [facility] XRAYS RT HIP 11/01/24 IN [facility] MRI L-SPINE W/O 12/01/24 [facility] BONE SCAN 03/19/24 @ [facility] S/P MDP 02/13/24 FINISHED PHYSICAL THERAPY [...] urgent evaluation. documented in this encounter [facility] 11-01-2024 History of Present illness Narrative Images from the original note were not included. HISTORY OF PRESENT ILLNESS: EST PT Isabel Waddell is an 64 y.o. @ female. (EST PT) HERE FOR YEARLY CHECK OF (R) SHAAN 11/02/21 (~3 YRS) XRAYS DONE TODAY, 11/01/24 IN EPIC BONE SCAN 03/19/24 @ [facility] S/P MDP 02/13/24 FINISHED PHYSICAL THERAPY [...] Future Standing Expiration Date: 11/01/2025 Scheduling Instructions: [facility] ; PLEASE CALL PT TO SCHEDULE (XRAYS BEING DONE TODAY, 11/01/24 @ [facility]) Order Specific Question: Reason for exam: [...] urgent evaluation. documented in this encounter [facility] 10-07-2024 History of Present illness Narrative [...] Examined Right arm Examined Patient wearing nail egyptian, Denies dark streaks on toenails Left arm [...] 1 year documented in this encounter [facility] 08-19-2024 Note HNO ID: [id number] Author: MELODY MENA APRN.CNP Service: ? Author Type: Nurse Practitioner Type: Progress Notes Filed: 08/21/2024 11:16 Note Text: Attempted to call patient, no answer, message left to call back. Phone message also sent by Ernesto Chacko CNP. Will send Kiddie Kisthart message. Melody Mena APRN.CNP [facility] 08-19-2024 History of Present illness Narrative Attempted to call patient, no answer, message left to call back. Phone message also sent by Ernesto Chacko CNP. Will send Kiddie Kisthart message. Melody Mena APRN.CNP documented in this encounter [facility] 08-18-2024 Telephone encounter Note Message left for patient. Pap test inconclusive. She should call the office if she has persistent bleeding. MRI if symptoms persist. Ernesto Chacko APRN.CNP [facility] Work Phone: 08-18-2024 Miscellaneous Notes Message left for patient. Pap test inconclusive. She should call the office if she has persistent bleeding. MRI if symptoms persist. Ernesto Chacko APRN.CNP documented in this encounter [facility] 08-16-2024 Note Unsatisfactory for e valuation. Limited cellularity. [facility] Work Phone: 08-05-2024 History of Present illness Narrative Gynecologic Oncology [facility] Follow up visit Date of service: 08/05/2024 [...] differentiation, FIGO grade 2. Neg LVSI, 13% IA pT1a (IA): Tumor limited to endometrium or invades less than 1/2 of the myometrium 05/25/2021 Vaginal biopsy Vagina, biopsy - Consistent with endometrioid adenocarcinoma (see comment). GZ/ka 05/28/2021 COMMENT The tumor cells are diffusely and strongly positive for immunohistochemical stain for Shushan 8, supporting the above diagnosis. The patient [...] by mouth daily at bedtime. ^Disp: ^Rfl: [id number]-FISH OIL-L.CASEI ORAL^Take by mouth once daily.^Disp: ^Rfl: [...] discussed with the Patient or Patient's Authorized Rn Cardiac Rehab. As applicable, any other physician, advance practice provider, medical student, or other health professional student that will be observing or involved in the sensitive examination for educational or training purposes was discussed with the Patient or Authorized Rn Cardiac Rehab. The Patient or Authorized Rn Cardiac Rehab has agreed to proceed with the sensitive [...] EXTREMITIES: Not tender. No ulcers or swelling. Global Coordinator for exam: Melody Mena APRN.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 DIRECTOR RESULTS: CA 125 (U/mL) Date Value 12/13/2021 [...] will review with PCP Dee Dee Carter APRN.MONSERRAT 05/30/2021 Distance Health Visit 61 [...] her today already. Test vaginal lesion for ER/CO receptors See me September 19 for post [...] hyperthyroidism, advised follow up with PCP and [facility]. Ernesto Chacko APRN.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 DIRECTOR 03/13/2022 Recurrent Endometrial cancer with recurrence in [...] Recommend she start following with a F welfare officer for her rectal bleeding. We will assist [...] which included preparing to see the patient, [id number] patient care, completing clinical documentation, obtaining and/or [...] 2024 12:40 PM documented in this encounter [facility] 08-05-2024 Note HNO ID: [id number] Author: HENRY RAMOS MD Service: ? Author Type: Physician Type: Progress Notes Filed: 08/16/2024 12:41 Note Text: Gynecologic Oncology [facility] Follow up visit Date of service: 08/05/2024 [...] differentiation, FIGO grade 2. Neg LVSI, 13% IA pT1a (IA): Tumor limited to endometrium or invades less than 1/2 of the myometrium 05/25/2021 Vaginal biopsy Vagina, biopsy - Consistent with endometrioid adenocarcinoma (see comment). GZ/ka 05/28/2021 COMMENT The tumor cells are diffusely and strongly positive for immunohistochemical stain for Shushan 8, supporting the above diagnosis. The patient [...] by mouth daily at bedtime. Disp: Rfl: [id number]-UNP-AHX-FISH OIL-L.CASEI ORALTake by mouth once daily.Disp: Rfl: Lactobac no.41/Bifidobact no.7 (PROBIOTIC-10 ORAL)Take by mouth once daily.Disp: Rfl: MULTIVITAMIN TABTake by mouth.Disp: Rfl: 0 B COMPLEX VITAMINS CAPTake one(1) capsule daily.Disp: Rfl: 0 CALCIUM CARBONATE-VIT D3-MINERALS 600 MG-400 UNIT TABTake 1 tablet by mouth two times a day.Disp: Rfl: 0 acetaminophen (TYLENOL) 500 mg tabletTake 1-2 tablets by mouth (more content not included)... [facility] 08-04-2024 Telephone encounter Note Called pt regarding msg. Pt c/o spotting. Pt has not been using a pad or panty liner. States that she is having some bright red blood with wiping. Pt accepted f/u appt to RTC with Dr. Ramos for tomorrow 08/05 at 11:10am. Msg sent to scheduling. [facility] 08-04-2024 Miscellaneous Notes Called pt regarding msg. Pt c/o spotting. Pt has not been using a pad or panty liner. States that she is having some bright red blood with wiping. Pt accepted f/u appt to RTC with Dr. Rachel for tomorrow 08/05 at 11:10am. Msg sent to scheduling. documented in this encounter [facility] 10-23-2023 Evaluation note Encounter Date Diagnosis Assessment Notes Oct, Iron deficiency anemia due to chronic blood loss (ICD-10 - D50.0) Oct, Decreased thyroid stimulating hormone (TSH) level (ICD-10 - R79.89) Oct, Pulmonary hypertension (ICD-10 - I27.20) [employer] Other 11-13-2023 History of Present illness Narrative* [...] of treatment plan: low [facility]23 NoteHNO ID: [id number] Author: South Saba DO Service: ? 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.] Ferritin May be candidate for Fe IV [employer] Other 10-18-2023 Evaluation note* Encounter Date Diagnosis Assessment Notes Treatment Notes Treatment Clinical Notes Aug, Radiation proctitis (ICD-10 - K62.7) Aug, Iron deficiency anemia due to chronic blood loss (ICD-10 - D50.0) [employer] Other 10-17-2023 NoteHNO ID: [id number] Author: Brannon Sung APRN.PANTOGRAPH TRANSFERRER Service: ? 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 PANTOGRAPH TRANSFERRER: Brannon Sung APRN.PANTOGRAPH TRANSFERRER Performed by: ALIN Indications and Patient Condition [...] September 02, 2023 TIME: 8:05 AM CSN: [id number] * Encounter Date Diagnosis Assessment Notes Treatment Notes Treatment Clinical Notes Aug, Dilated cardiomyopathy (ICD-10 - I42.0) Echo: LVEF normal, RVSP 31, LAE [employer] Other 10-13-2023 History and physical note* Elder Galan APRN.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 DIRECTOR - 08/29/2023 11:00 AM EDT COLON AND RECTAL HISTORY AND PHYSICAL EXAMINATION SERVICE DATE: 08/29/2023 Primary Care Physician: Roland Serrano DO Chief complaint: pre operative examination Surgeon: Dr. Saba Procedure: Examination under anesthesia, Flexible sigmoidoscopy, injection of formalin, or any other indicated procedure HPI: sIabel Waddell is a 63 year old female [...] of treatment plan: high [facility] History of Present illness Narrative* Heidi Menard MD - 08/29/2023 10:00 AM EDT Images from the original note were not included. Ms. Waddell is a 63 year old female who presents to the [facility] [place]. 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 Hobbies:Biking Vacation: [place], [place] No significant exposure history except local radiation [...] MULTIVITAMIN TAB^Take one(1) tablet daily.^Disp: ^Rfl: 0 [id number]-FNQ-FISH OIL-L.CASEI ORAL^Take by mouth once daily.^Disp: ^Rfl: [...] personally reviewed by me Data Reviewed from [facility] (in addition to that noted in [...] MD Pulmonary and Critical Care Fellow [facility] [place] Staff note: I have personally interviewed and [...] Hilton Adame MD 08/29/2023 [facility]23 NoteHNO ID: [id number] Author: Heidi Menard MD Service: ? Author Type: Fellow Type: Progress Notes Filed: 08/29/2023 4:02 PM Note Text: Ms. Waddell is a 63 year old female who presents to the [facility] [place]. 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 Author Type: Registered Resp Therapist Type: Progress Notes Filed: 08/29/2023 9:52 AM Note Text: PULM FUNCTION SMARTBLOCK: Provider: Mike Presley MD Spirometry: 1 DLCO: 1 LV - [facility] History of Present illness Narrative* Sveta Roman RRT - 08/29/2023 9:52 AM EDT PULM FUNCTION SMARTBLOCK: Provider: Mike Presley MD Spirometry: 1 DLCO: 1 LV - Box: 1 documented [facility] History of Present illness Narrative* [...] 29, 2023 9:10 AM documented in [facility]10-[facility]-2023 NoteHNO ID: [id number] Author: Marshal Vasquez RT (R) Service: ? [...] BY: DAVID Munoz) August 29, 2023 9:10 [facility]10-10-2023 NoteHNO ID: [id number] Author: Gilberto Beth Service: ? Author Type: ? Type: Progress Notes Filed: 08/26/2023 4:28 PM Note Text: Sang to pair w dlco/lv [facility] History of Present illness Narrative* Gilberto Beth - 08/26/2023 4:16 PM EDT Garrett to pair w dlco/lv on upcoming f/u visit documented [facility]10-[facility]-2023 NoteHNO ID: [id number] Author: Nuvia Grewal RT(R) Service: Radiology Author Type: Clinic Assistant Type: Progress Notes Filed: 08/22/2023 8:34 AM [...] BY: RT Seth(R) August 22, 2023 8:33 AMGunn[facility] [id number] History of Present illness Narrative* Nuvia Grewal [...] 22, 2023 8:33 AM documented [facility] Evaluation note* Encounter Date Diagnosis [...] symptoms. Will initiate antibiotics and have called [facility]. Since her symptoms developed > 5 days ago, no Paxlovid has been prescribed Jul, Bronchitis, not specified as acute or chronic (ICD-10 - J40) Instructed to use Robitussin or Mucinex for cough, saline or Flonase NS for congestion, Tylenol for pain and fever. [employer] Other 09-05-2023 Miscellaneous Notes* Telephone Encounter - Divya Karimi - 07/22/2023 3:17 PM EDT Isabel Waddell accepts 09/01 and 09/02 dates for preop and surgery documented [facility]23 Miscellaneous Notes* Telephone Encounter - Enid Baker - 07/22/2023 2:48 PM EDT [phone] Patient calling to reschedule her EUA. documented in this encounter[facility]08-[facility]23 Evaluation note* Encounter Date Diagnosis Assessment Notes Treatment Notes Treatment Clinical Notes Jun, SHERIF (generalized anxiety disorder) (ICD-10 - F41.1) [employer] Other 08-18-2023 History and physical note* South [...] reports regular bowel movements. 03/05/23 Cherelle Medina, 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 DIRECTOR: Isabel Waddell is a 62 year old [...] 150 mg by mouth daily at bedtime. [id number]-NDF-FISH OIL-L.CASEI ORAL Take by mouth once daily. [...] Documents Reviewed/ordered: Review of prior notes from [facility], pulmonary medicine Review of prior operative reports [...] of treatment plan: high documented [facility] History of Present illness Narrative* Heidi Menard MD - 06/27/2023 10:29 AM EDT Images from the original note were not included. Ms. Waddell is a 63 year old female who [facility] the [facility] [place]. Consultation requested by Self. 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 Silica: No significant exposure. [place]: No significant exposure. Organic HP antigen: No [...] 150 mg by mouth daily at bedtime. [id number]-FPE-FISH OIL-L.CASEI ORAL Take by mouth once daily. [...] personally reviewed by me Data Reviewed from [facility] (in addition to that noted in [...] MD Pulmonary and Critical Care Fellow Respiratory [place] STAFF ATTENDING NOTE I have personally interviewed [...] Mike Thompson MD 06/29/2023 documented in this encounter[facility] History of Present illness Narrative* Dayan Marley RRT - 06/27/2023 10:26 AM EDT PULM FUNCTION SMARTBLOCK: Provider: Pedro Rodarte MD Spirometry: 1 System: 3 - [id number] documented in this encounter[facility]07-[facility] Evaluation note* Encounter Date Diagnosis [...] and feet daily for blisters and ulcerations. [employer] Other 06-27-2023 Evaluation note* Encounter Date Diagnosis Assessment Notes Treatment Notes Treatment Clinical Notes Apr, History of total right hip replacement (ICD-10 - Z96.641) [employer] Other 06-07-2023 Evaluation note* Encounter Date Diagnosis [...] F41.1) Healthy diet, exercise and keep active [employer] Other 2023 Evaluation note* Encounter Date Diagnosis Assessment Notes Treatment Notes Treatment Clinical Notes March, Mild intermittent asthma without complication (ICD-10 - J45.20) [employer] Other 05-05-2023 Evaluation note* Encounter Date Diagnosis Assessment Notes Treatment Notes Treatment Clinical Notes March, Dyspnea on exertion (ICD-10 - R06.09) [employer] Other 04-24-2023 Evaluation note* Encounter Date Diagnosis Assessment Notes Treatment Notes Treatment Clinical Notes Feb, Shortness of breath (ICD-10 - R06.02) Feb, Subacute cough (ICD-10 - R05.2) [employer] Other 04-19-2023 Instructions* Patient Instructions* Cherelle Medina APRN.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 DIRECTOR - 03/05/2023 9:47 AM EDT Images from the original note were not included. Thank you for seeing me in clinic today. As we discussed, my recommendations are as follows: 1.Colonoscopy If you have any questions about the above treatment plan, please do not hesitate to call the officeor send me a Platypit message. Bowel Preparation Instructions for: Miralax-Gatorade Preparations [...] do not have a responsible tractor driver teamster (family member or friend) withyou to take you home, your exam cannot be done with sedation and will be cancelled. Please bring a list of all of your current medications, including any Jpyc-epx-Nhvrawh medications with you. Medications If you take [...] your exam. 2 10/2019 documented in this encounterSouth[facility]04-19-2023 History and physical note * Cherelle Medina [...] Abs Lymph 1.00 - 4.00 k/uL 1.31 Bent% % 11.1 Abs Bent <0.87 k/uL 0.50 Eosin% % 3.1 Abs [...] 150 mg by mouth daily at bedtime. [id number]-VYE-LIQ-FISH OIL-L.CASEI ORAL Take by mouth once daily. [...] -radiation proctitis?? This note was dictated using [employer] speech recognition software and may contain some errors that were a result of the program not accurately transcribing what was dictated. Cherelle Medina APRN.MONSERRAT documented in this encounterSouth[facility] Center03-10-2023 Evaluation note* Encounter Date Diagnosis Assessment Notes Treatment Notes Treatment Clinical Notes Jan, Acute bronchitis due to other specified organisms (ICD-10 - J20.8) Instructed to use Robitussin or Mucinex for cough, saline or Flonase NS for congestion, Tylenol for pain and fever. [employer] Other 03-06-2023 Evaluation note* Encounter Date Diagnosis [...] weeks for the cough to go away [employer] Other 02-17-2023 History of Present illness Narrative* Henry Ramos MD - 01/03/2023 3:20 PM EST Gynecologic Oncology [facility] Follow up visit Date of service: [...] differentiation, FIGO grade 2. Neg LVSI, 13% IA pT1a (IA): Tumor limited to endometrium or invades less than 1/2 of the myometrium 05/25/2021 Vaginal biopsy Vagina, biopsy - Consistent with endometrioid adenocarcinoma (see comment). GZ/ka 05/28/2021 COMMENT The tumor cells are diffusely and strongly positive for immunohistochemical stain for Shushan 8, supporting the above diagnosis. The patient [...] 150 mg by mouth daily at bedtime. [id number]-ZMV-WXP-FISH OIL-L.CASEI ORAL Take by mouth once daily. [...] improving. She [facility]. PHYSICAL [...] or swelling. Deep tendon reflexes are present Global Coordinator for exam: Shelli Villarreal APRN.CNP RESULTS: [...] review with PCP 05/30/2021- Dee Dee Carter APRN.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 DIRECTOR (distance health visit) 61 yo female with [...] her today already. Test vaginal lesion for ER/CO receptors See me September 19 for post [...] hyperthyroidism, advised follow up with PCP and Crane Man. Ernesto Chacko APRN.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 DIRECTOR 03/13/2022 Recurrent Endometrial cancer with recurrence in [...] Recommend she start following with a F welfare officer for her rectal bleeding. We will assistwith [...] 03, 2023 4:37 PM documented in this encounterSouth[facility] Center02-08-2023 Miscellaneous Notes* Telephone Encounter - [...] know if she should schedule an appointment. [phone] documented in this encounterSouthview [facility] Center11-10-2022 Nurse Note* Francisca Gómez RN [...] RN In Department: GASTROENTEROLOGY documented in this encounterSouthview Medical Center11-10-2022 Miscellaneous Notes* Sedation Documentation - Aretha Deluna RN - 09/26/2022 12:00 PM EST Grounding pad placed at right flank. Skin Intact. LOT#[id number]. documented in this encounterSouthview Medical Center11-03-2022 Miscellaneous Notes* Telephone Encounter - Kelly Ch MA - 09/19/2022 3:49 PM EDT Attempted to reach the patient at the contact number that they provided [phone] (home) . Unable to speak with patient so without identifying the patient the following information was left on their voice mail: Date of procedure, location and report time Prep instructions A message was left informing the patient/patient vendor representatives they must have a responsible adult accompany [...] Number to call with questions or concerns [phone] Number to call to cancel their procedure [phone] Kelly Ch MA documented in this encounterSouthview Medical Center09-21-2022 Instructions* Patient Instructions* Ernesto Chacko [...] do not have a responsible tractor driver teamster (family member or friend) with you to [...] your exam. 2 10/2019 documented in this encounterSouthview Medical Center09-21-2022 History of Present illness Narrative* Henry Ramos MD - 08/07/2022 3:20 PM EDT Gynecologic Oncology [facility] Follow up visit Date of service: [...] differentiation, FIGO grade 2. Neg LVSI, 13% IA pT1a (IA): Tumor limited to endometrium or invades less than 1/2 of the myometrium 05/25/2021 Vaginal biopsy Vagina, biopsy - Consistent with endometrioid adenocarcinoma (see comment). GZ/ka 05/28/2021 COMMENT The tumor cells are diffusely and strongly positive for immunohistochemical stain for Shushan 8, supporting the above diagnosis. The patient [...] 150 mg by mouth daily at bedtime. [id number]-FISH OIL-L.CASEI ORAL Take by mouth once daily. [...] groin. LOWER EXTREMITIES: No swelling or edema. Global Coordinator for exam: Promise Mclaughlin MA RESULTS: 05/25/2021 - VAGINAL BIOPSY Vagina, biopsy - Consistent with endometrioid adenocarcinoma (see comment). GZ/ka 05/28/2021 COMMENT The tumor cells are diffusely and strongly positive for immunohistochemical stain for Shushan 8, supporting the above diagnosis. The patient [...] dedicated report for findings in the abdomen Beeswax Bleacher (topogram) images: None CA 125 (U/mL) Date Value 12/13/2021 9 06/04/2021 8 07/12/2019 15 ASSESSMENT & PLAN: 05/25/2021-Dee Dee Carter APRN.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 DIRECTOR IA endometrioid type endometrial adenocarcinoma, FIGO grade [...] review with PCP 05/30/2021- Dee Dee Carter APRN.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 DIRECTOR (distance health visit) 61 yo female with [...] her today already. Test vaginal lesion for ER/CO receptors See me September 19 for post [...] hyperthyroidism, advised follow up with PCP and Crane Man. Ernesto Chacko APRN.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 DIRECTOR 03/13/2022 Recurrent Endometrial cancer with recurrence in [...] 07, 2022 4:19 PM documented in this encounterSouth[facility] Center04-27-2022 History of Present illness Narrative* Henry Ramos MD - 03/13/2022 2:50 PM EDT Gynecologic Oncology [facility] Follow up visit Date of service: [...] differentiation, FIGO grade 2. Neg LVSI, 13% IA pT1a (IA): Tumor limited to endometrium or invades less than 1/2 of the myometrium 05/25/2021 Vaginal biopsy Vagina, biopsy - Consistent with endometrioid adenocarcinoma (see comment). GZ/ka 05/28/2021 COMMENT The tumor cells are diffusely and strongly positive for immunohistochemical stain for Shushan 8, supporting the above diagnosis. The patient [...] 150 mg by mouth daily at bedtime. [id number]-LXR-VQY-FISH OIL-L.CASEI ORAL Take by mouth once daily. [...] absent LOWER EXTREMITIES: No swelling or edema. Global Coordinator for exam: Modlo RESULTS: 05/25/2021 - VAGINAL BIOPSY Vagina, biopsy - Consistent with endometrioid adenocarcinoma (see comment). GZ/ka 05/28/2021 COMMENT The tumor cells are diffusely and strongly positive for immunohistochemical stain for Shushan 8, supporting the above diagnosis. The patient [...] dedicated report for findings in the abdomen Beeswax Bleacher (topogram) images: None CA 125 (U/mL) Date Value 12/13/2021 9 06/04/2021 8 07/12/2019 15 ASSESSMENT & PLAN: 05/25/2021-Dee Dee Carter APRN.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 DIRECTOR IA endometrioid type endometrial adenocarcinoma, FIGO grade [...] review with PCP 05/30/2021- Dee Dee Carter APRN.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 DIRECTOR (distance health visit) 61 yo female with [...] her today already. Test vaginal lesion for ER/CO receptors See me September 19 for post [...] hyperthyroidism, advised follow up with PCP and Crane Man. Ernesto Chacko APRN.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 DIRECTOR 03/13/2022 Recurrent Endometrial cancer with recurrence in [...] Past Histories independently gathered by the clinical program support assistant and the remaining scribed note accurately describes my personal service to the patient. documented in this encounterSouth[facility] Center01-27-2022 History of Present illness Narrative* Leigh Romo [...] 13, 2021 9:35 AM documented in this encounterSouthview Medical CenterEvaluation note* Diagnosis Dizziness- Primary Dizziness and giddiness Dehydration documented in this encounter [employer] Phone: evaluation note* Diagnosis Recurrent carcinoma of endometrium (HCC)- Primary Malignant neoplasm of corpus uteri, except isthmus Vaginal atrophy Postmenopausal atrophic vaginitis Foreshortening of vagina documented in this encounter [facility]* Diagnosis Recurrent carcinoma of endometrium (HCC)- Primary Malignant neoplasm of corpus uteri, except isthmus Radiation proctitis Other specified disorder of rectum and anus Foreshortening of vagina Endometrial cancer (HCC) Malignant neoplasm of corpus uteri, except isthmus Vaginal atrophy Postmenopausal atrophic vaginitis Rectal bleeding Hemorrhage of rectum and anus [facility]* Diagnosis History of thyroid disease- Primary Personal history of other endocrine, metabolic, and immunity disorders Rectal bleeding Hemorrhage of rectum and anus documented in this encounter [facility]* Diagnosis Recurrent carcinoma of endometrium (HCC)- Primary Malignant neoplasm of corpus uteri, except isthmus Radiation proctitis Other specified disorder of rectum and anus Blood per rectum Hemorrhage of rectum and anus documented [facility] noteNo [employer] Other Evaluation note* Diagnosis Rectal bleeding- Primary Hemorrhage of rectum and anus documented [facility]* Diagnosis Radiation proctitis- Primary Other specified disorder of rectum and anus [facility]* Diagnosis Dyspnea, unspecified type- Primary documented in this encounter [facility]* Diagnosis 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) documented in this encounter [facility]* Diagnosis Radiation proctitis- Primary Other specified disorder of rectum and anus documented in this encounter [facility]* Diagnosis Endometrial cancer (HCC)- Primary Malignant neoplasm of corpus uteri, except isthmus Radiation proctitis Other specified disorder of rectum and anus Radiation proctitis Other specified disorder of rectum and anus documented in this encounter [facility]* Diagnosis Radiation proctitis- Primary Other specified disorder of rectum and anus documented in this encounter [facility]* Diagnosis ILD (interstitial lung disease) (HCC)- Primary Postinflammatory pulmonary fibrosis Radiation proctitis Other specified disorder of rectum and anus [facility]* Diagnosis ILD (interstitial lung disease) (HCC) Postinflammatory pulmonary fibrosis Radiation proctitis Other specified disorder of rectum and anus [facility]* Diagnosis Interstitial pulmonary disease (HCC) Postinflammatory pulmonary fibrosis Radiation proctitis Other specified disorder of rectum and anus documented [facility]* Diagnosis Dyspnea and respiratory abnormalities- Primary Other dyspnea and respiratory abnormality Calcified nodule Localized superficial swelling, mass, or lump Iron deficiency anemia due to chronic blood loss Iron deficiency anemia secondary to blood loss (chronic) Radiation proctitis Other specified disorder of rectum and anus documented [facility]* Diagnosis Dyspnea, unspecified type Radiation proctitis Other specified disorder of rectum and anus documented [facility]* Diagnosis Pre-op evaluation- Primary Preoperative examination, unspecified Radiation proctitis Other specified disorder of rectum and anus documented [facility] this [facility]* Diagnosis Interstitial pulmonary disease (HCC) Postinflammatory pulmonary fibrosis [facility]* Diagnosis Radiation proctitis- Primary Other specified disorder of rectum and anus Endometrial cancer (HCC) Malignant neoplasm of corpus uteri, except isthmus documented [facility] this [facility]* Diagnosis Onset Date Resolution Status Graves disease acute Hypertension acute Thyrotoxicosis acute [facility] Work Phone: Evaluation note* Diagnosis Preoperative [...] rectum and anus documented [facility]* Diagnosis Preoperative examination- Primary Preoperative examination, unspecified Endometrial cancer (HCC) Malignant neoplasm of corpus uteri, except isthmus Essential hypertension Unspecified essential hypertension History of thyroid disease Personal history of other endocrine, metabolic, and immunity disorders Malignant neoplasm of endometrium (HCC) Malignant neoplasm of corpus uteri, except isthmus documented in this [facility]* Diagnosis Preoperative examination- Primary Preoperative examination, unspecified Endometrial cancer (HCC) Malignant neoplasm of corpus uteri, except isthmus Essential hypertension Unspecified essential hypertension History of thyroid disease Personal history of other endocrine, metabolic, and immunity disorders NO SHOW- Primary documented in this encounter [facility]* Diagnosis Seborrheic keratosis- Primary Melanocytic nevus of trunk Benign neoplasm of skin of trunk, except scrotum [facility] Diagnosis History of right hip replacement- Primary Acute pain of right hip Lumbar radiculopathy, right documented in this encounter [facility] HealthcareEvaluation noteNo assessment information availableOhio [facility] Work Phone: Evaluation note* Diagnosis Acute pain of right hip- Primary History of right hip replacement Lumbar radiculopathy, right Sacroiliac joint pain Disorders of sacrum Right leg weakness Muscle weakness (generalized) Right leg paresthesias Disturbance of skin sensation [facility] Diagnosis Lumbar radiculopathy- Primary Thoracic or lumbosacral neuritis or radiculitis, unspecified Right hip pain Pain in joint, pelvic region and thigh documented in this encounter [facility] Work Phone: Hisxkdl general Narrative - Reported* Type Description Date Medical History menopause Medical History endometrial cancer hx Surgical History Bilateral Knee Scope Surgical History Bilateral Shoulder Scope Surgical History Bilateral Carpal Tunnel Surgical History x 3 Surgical History Pituatary Tumor Surgical History hysterectomy Surgical History right thumb excision of trapezi 09/14/2020 [employer] Other [employer] general Narrative - Reported* Type Description Date Medical History menopause Medical History endometrial cancer hx Surgical History Bilateral Knee Scope Surgical History Bilateral Shoulder Scope Surgical History Bilateral Carpal Tunnel Surgical History x 3 Surgical History Pituatary Tumor Surgical History hysterectomy Surgical History right thumb excision of trapezi um 09/14/2020 Hospitalization History see surgical history [employer] Other Hisijyu general Narrative - Reported* Type Description Date Medical History menopause Medical History endometrial cancer hx Medical History Dilated Cardiomyopathy Surgical History Bilateral Knee Scope Surgical History Bilateral Shoulder Scope Surgical History Bilateral Carpal Tunnel Surgical History x 3 Surgical History Pituatary Tumor Surgical History hysterectomy Surgical History right thumb excision of trapezi um 09/14/2020 Hospitalization History see surgical history [employer] Other History general Narrative - Reported* Type [...] Sigmoidoscopy 08/2023 Hospitalization History see surgical history [employer] Other History general Narrative - Reported* Type [...] Sigmoidoscopy 08/2023 Hospitalization History see surgical history [employer] Other Hospital Discharge instructions* Attachments The following attachments cannot be sent through Care Everywhere. * Dehydration (Norwegian) * Oral Rehydration (Norwegian) documented [facility] this [facility] Work Phone: reason for referral (narrative)* Outpatient Procedure (Routine) - Closed Specialty Diagnoses / Procedures Referred By Kelly alberts Referred To Contact [facility] [place] Diagnoses Rectal bleeding Procedures COLONOSCOPY SCREENING COLONOSCOPY FLX DX W/COLLJ SPEC WHEN PFErnesto Iglesias APRN.CNP [address] [place] [address] [facility] Disease [address] [address] Referral ID Status Reason Start Date Expiration Date V isits Requested Visits Authorized [id number] Closed Auto-Generate d Referral 08/07/2022 08/07/2023 1 1 [facility] for referral (narrative)* Outpatient Procedure (Routine) - Pending Review Specialty Diagnoses / Procedures Referred By Kelly alberts Referred To Contact [facility] [place] Diagnoses Rectal bleeding Procedures COLONOSCOPY (THERAPEUTIC) COLONOSCOPY FLX ABLATION TUMOR POLYP/OTHER Cherelle Mendoza APRN.CNP [address] [place] [address] [facility] Disease [address] [address] Referral ID Status Reason Start Date Expiration Date Visits Requested Visits Authorized [id number] Pending Review Auto-Generat ed Referral 03/05/2023 03/05/2024 1 1 [facility] for referral (narrative)* Outpatient Procedure (Routine) - Authorized Specialty Diagnoses / Procedures Referred By Contac t Referred To Contact [facility] Diagnoses Other secondary pulmonary hypertension (HCC) Procedures ECHO ECHO TTHRC R-T 2D W/WOM-MODE COMPL SPEC&COLR D Mike Presley MD [address] [place], [place] [address] [facility] [place] [address] [place] [id number] Referral ID Status Reason Start Date Expiration Date Visits Requested Visits Authorized [id number] Authorized Auto-Generat ed Referral 06/27/2023 06/26/2024 1 1 * Diagnostic Procedure Only (Routine) - Pending Review Specialty Diagnoses / Procedures Referred By Contac t Referred To Contact [facility] Diagnoses Other secondary pulmonary hypertension (HCC) Procedures NM LUNG VENT / PERF VQ PULMONARY VENTILATION & PERFUSION IMAGING Mike Presley MD [address] [place], [place] [address] [facility] Functional [facility] [address] [place] [address] Referral ID Status Reason Start Date Expiration Date Visits Requested Visits Authorized [id number] Pending Review Auto-Generat ed Referral 06/27/2023 07/26/2024 1 1 * Outpatient Procedure (Routine) - Pending Review Specialty Diagnoses / Procedures Referred By Contac t Referred To Contact [facility] Diagnoses Interstitial pulmonary disease (HCC) Procedures LUNG VOLUMES Mike Presley MD [address] [place], [place] [address] [place] [id number] Referral ID Status Reason Start Date Expiration Date Visits Requested Visits Authorized [id number] Pending Review Auto-Generat ed Referral 06/27/2023 07/26/2024 1 1 * Outpatient Procedure (Routine) - Authorized Specialty Diagnoses / Procedures Referred By Contac t Referred To Contact [facility] Diagnoses Interstitial pulmonary disease (HCC) Procedures LUNG DIFFUSION CAPACITY (DLCO) DIFFUSING CAPACITY Mike Presley MD [address] [place], [place] [address] [place] [address] Referral ID Status Reason Start Date Expiration Date Visits Requested Visits Authorized [id number] Authorized Auto-Generat ed Referral 06/27/2023 07/26/2024 1 1 * MRI/CT (Routine) - Authorized Specialty Diagnoses / Procedures Referred By Kelly t Referred To Contact CT IMAGING Diagnoses Interstitial pulmonary disease (HCC) Procedures CT CHEST WO IVCON DIAGNOSTIC COMPUTED TOMOGRAPHY THORAX W/O CNTRST Mike Presley MD [address] [place], [place] [address] Ct Imaging Referral ID Status Reason Start Date Expiration Date Visits Requested Visits Authorized [id number] Authorized Auto-Generat ed Referral 06/27/2023 07/26/2024 1 1 [facility] for referral (narrative)* Outpatient Procedure (Routine) - Authorized Specialty Diagnoses / Procedures Referred By Kelly t Referred To Contact [facility] Diagnoses ILD (interstitial lung disease) (HCC) Procedures SPIROMETRY BASELINE ONLY SPMTRY W/VC EXPIRATORY BERNIE W/WO MXML VOL VNTJ Mike Presley MD [address] [place], [place] [id number] [facility] [place] [address] [place] [address] Referral ID Status Reason Start Date Expiration Date Visits Requested Visits Authorized [id number] Authorized Auto-Generat ed Referral 3 09/24/2024 1 1 [facility] Procedure (Routine) - Closed Specialty Diagnoses / Procedures Referred By Kelly alberts Referred To Contact [facility] Diagnoses Rectal bleeding Procedures COLONOSCOPY SCREENING COLONOSCOPY FLX DX W/COLLJ SPEC WHEN PFRMD Ernesto Chacko APRN.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 DIRECTOR [address] [place] [address] [facility] [place] [address] [place] [address] Referral ID Status Reason Start Date Expiration Date V isits Requested Visits Authorized [id number] Closed Auto-Generate d Referral 08/07/2022 08/07/2023 1 1 [facility] Summary Purpose Family History No Family History Records Found Relationship Condition Age at Onset Recorded Date/T sebastian mother Disorder of thyroid Unknown Dementia Unknown grandparent Disorder of thyroid Unknown father Osteoarthritis Unknown Advance Directives No Advanced Directives Records FoundDocuments on File Type Date Recorded Patient Rn Cardiac Rehab 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 Advance Directive(s) 08/12/2019 10:47 AM Advance Directive(s) 07/28/2019 9:20 AM Documents on File Type Date Recorded Patient Rn Cardiac Rehab 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 Advance Directive(s) 07/28/2019 9:20 AM Documents on File Type Date Recorded Patient Rn Cardiac Rehab 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 Advance Directive(s) 07/28/2019 9:20 AM Advance Directive Response Recorded Date/ Time Advance Directives No August 18, 2018 2:26pm Advance Directive Response Recorded Date/ Time Advance Directives No August 18, 2018 1:26pm Reason for Referral Specialty Diagnoses / Procedures Referred By Kelly alberts Referred To Contact Gastroenterology Diagnoses Rectal bleeding Procedures CONSULT TO GASTROENTEROLOGY OFFICE/OUTPATIENT NEW HIGH MDM 60-74 MINUTES Ernesto Chacko, BETTY.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 DIRECTOR [address] [place] [address] Referral ID Status Reason Start Date Expiration Date Visits Requested Visits Authorized [id number] Authorized PCP Requested Referral 08/07/2022 08/07/2023 1 1 Specialty Diagnoses / Procedures Referred By Kelly t Referred To Contact [facility] Diagnoses Rectal bleeding Procedures COLONOSCOPY SCREENING COLONOSCOPY FLX DX W/COLLJ SPEC WHEN PFRMD Ernesto Chacko APRN.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 DIRECTOR [address] [place] [id number] [facility] [place] [address] [place] [address] Referral ID Status Reason Start Date Expiration Date Visits Requested Visits Authorized [id number] Pending Review Auto-Generat ed Referral 08/07/2022 08/07/2023 1 1 Specialty Diagnoses / Procedures Referred By Kelly t Referred To Contact CT IMAGING Diagnoses Interstitial pulmonary disease (HCC) Procedures CT CHEST WO IVCON DIAGNOSTIC COMPUTED TOMOGRAPHY THORAX W/O CNTRST Mike Presley MD [address] [place] [id number] Imaging [place] [address] Referral ID Status Reason Start Date Expiration Date V isits Requested Visits Authorized [id number] Closed Auto-Generate d Referral 06/27/2023 07/26/2024 1 1 Reason Iron deficiency anem ia Diagnosis 1 Iron deficiency anem ia due to chronic blood loss (D50.0) Referral Organization [facility] Referring Provider First Name Roland Referring Provider Last Name Maggie Referring Provider Specialty Internal Me dicine Referred Organization [facility] Referred Provider NAJMA BARBOUR Referred Address [address] [place], [place],[address] Referred Provider Specialty Hematology Referral Priority Routine General Notes Mrs. Waddell is being r eferred for symptomatic iron deficiency anemia. 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 She has completed endoscopic treatment for her chronic bleeding and has received 2 units of PRBC [facility]. I am referring Mrs. Waddell for IV Fe therapy Clinical Notes Include latest CBC, Fe, TIBC, Ferritin, percent iron saturation Specialty Diagnoses / Procedures Referred By Kelly alberts Referred To Contact CT IMAGING Diagnoses Malignant neoplasm of endometrium (HCC) Procedures CT CHEST W IVCON CAT SCAN OF CHEST CONTRAST Ernesto Chacko APRN.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 DIRECTOR [address] [place] [address] Ct Imaging [facility] Referral ID Status Reason Start Date Expiration Date V isits Requested Visits Authorized [id number] Closed Auto-Generate d Referral 11/28/2021 01/12/2022 1 1 Specialty Diagnoses / Procedures Referred By Kelly alberts Referred To Contact CT IMAGING Diagnoses Malignant neoplasm of endometrium (HCC) Procedures CT ABD/PEL W IVCON CT ABD & PELVIS W/CONTRAST Ernesto Chacko, BETTY.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 DIRECTOR [address] [place] [address] Ct Imaging [facility] Referral ID Status Reason Start Date Expiration Date V isits Requested Visits Authorized [id number] Closed Auto-Generate d Referral 11/28/2021 01/12/2022 1 [...] DATE CREATED AUTHOR AUTHOR'S ORGANIZ ATION 03/20/2022 [facility] DATE CREATED AUTHOR AUTHOR'S ORGANIZ ATION 03/28/2023 [facility] DATE CREATED AUTHOR AUTHOR'S ORGANIZ ATION 08/25/2023 [facility] DATE CREATED AUTHOR AUTHOR'S ORGANIZ ATION 08/23/2024 [facility] DATE CREATED AUTHOR AUTHOR'S ORGANIZ ATION 12/05/2024 [facility] EPIC DATE CREATED AUTHOR AUTHOR'S ORGANIZ ATION 12/13/2024 [facility] Reason for Visit (unrecogniz ed [...] bleeding Procedures CONSULT TO GASTROENTEROLOGY OFFICE/OUTPATIENT [facility] MDM 60-74 MINUTES Ernesto Chacko APRN.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 DIRECTOR [address] [place] [address] Referral ID Status Reason Start Date Expiration Date V isits Requested Visits Authorized [id number] Closed PCP Requested Referral 08/07/2022 08/07/2023 1 1 Reason Comments Spirometry Specialty Diagnoses / Procedures Referred By Contac t Referred To Contact [facility] Diagnoses Dyspnea, unspecified type Procedures SPIROMETRY WITH DILATOR IF OBSTRUCTED BRNCDILAT RSPSE SPMTRY PRE&POST-BRNCDILAT ADMN Pedro Rodarte MD [address] [place] [address] [facility] [place] [address] [place] [address] Referral ID Status Reason Start Date Expiration Date V isits Requested Visits Authorized [id number] Closed Auto-Generate d Referral 05/23/2023 06/21/2024 1 1 Reason Comments New Reason Comments New Radiation proctitis Specialty Diagnoses / Procedures Referred By Contac t Referred To Contact Colon and Rectal Surgery Diagnoses Radiation proctitis Procedures CONSULT TO COLO-RECTAL SURGERY OFFICE/OUTPATIENT NEW HIGH MDM 60-74 MINUTES Shelli Villarreal APRN.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 DIRECTOR [address] [place] [address] [place] DO [address] [place] [address] Referral ID Status Reason Start Date Expiration Date V isits Requested Visits Authorized [id number] Closed PCP Requested Referral 05/16/2023 05/15/2024 1 1 Reason Comments Patient Update Specialty Diagnoses / Procedures Referred By Contac t Referred To Contact [facility] Diagnoses ILD (interstitial lung disease) (HCC) Procedures SPIROMETRY BASELINE ONLY SPMTRY W/VC EXPIRATORY BERNIE W/WO MXML VOL VNTJ Mike Presley MD [address] [place] [address] [facility] [place] [address] [place] [address] Referral ID Status Reason Start Date Expiration Date V isits Requested Visits Authorized [id number] Closed Auto-Generate d Referral 08/26/2023 09/24/2024 1 1 Specialty Diagnoses / Procedures Referred By Contac t Referred To Contact [facility] Diagnoses Interstitial pulmonary disease (HCC) Procedures LUNG DIFFUSION CAPACITY (DLCO) DIFFUSING CAPACITY Mike Presley MD [address] [place] [address] [facility] [place] [address] [place] [address] Referral ID Status Reason Start Date Expiration Date V isits Requested Visits Authorized [id number] Closed Auto-Generate d Referral 06/27/2023 07/26/2024 1 1 Reason Comments Radio Gen A21 Reason Comments Pre-Op Exam Specialty Diagnoses / Procedures Referred By Contac t Referred To Contact CT IMAGING Diagnoses Interstitial pulmonary disease (HCC) Procedures CT CHEST WO IVCON DIAGNOSTIC COMPUTED TOMOGRAPHY THORAX W/O CNTRST Mike Presley MD [address] [place] [address] Ct Imaging [place] [address] Referral ID Status Reason Start Date Expiration Date V isits Requested Visits Authorized [id number] Closed Auto-Generate d Referral 06/27/2023 07/26/2024 1 1 Reason Comments Radiology [place] Specialty Diagnoses / Procedures Referred By Contac t Referred To Contact CT IMAGING Diagnoses Malignant neoplasm of endometrium (HCC) Procedures CT CHEST W IVCON CAT SCAN OF CHEST CONTRAST Ernesto Chacko, TITLE ABSTRACTOR.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 DIRECTOR [address] [place] [id number] Ct Imaging [place] [address] Referral ID Status Reason Start Date Expiration Date V isits Requested Visits Authorized [id number] Closed Auto-Generate d Referral 11/28/2021 01/12/2022 1 [...] or prosecute any alcohol or drug abuse patient.[facility] Center[facility] the event this information is protected by the Federal Confidentiality of Alcohol and Drug Abuse Patient Records regulations: The Federal rules restrict any use of the information to criminally investigate or prosecute any alcohol or drug abuse patient.[facility] CenterIn the event this information is protected by the Federal Confidentiality of Alcohol and Drug Abuse Patient Records regulations: The Federal rules restrict any use of the information to criminally investigate or prosecute any alcohol or drug abuse patient.[facility] CenterIn the event this information is protected by the Federal Confidentiality of Alcohol and Drug Abuse Patient Records regulations: The Federal rules restrict any use of the information to criminally investigate or prosecute any alcohol or drug abuse patient.[facility] CenterIn the event this information is protected by the Federal Confidentiality of Alcohol and Drug Abuse Patient Records regulations: The Federal rules restrict any use of the information to criminally investigate or prosecute any alcohol or drug abuse patient.[facility] CenterIn the event this information is protected by the Federal Confidentiality of Alcohol and Drug Abuse Patient Records regulations: The Federal rules restrict any use of the information to criminally investigate or prosecute any alcohol or drug abuse patient.[facility] CenterIn the event this information is protected by the Federal Confidentiality of Alcohol and Drug Abuse Patient Records regulations: The Federal rules restrict any use of the information to criminally investigate or prosecute any alcohol or drug abuse patient.[facility] CenterIn the event this information is protected by the Federal Confidentiality of Alcohol and Drug Abuse Patient Records regulations: The Federal rules restrict any use of the information to criminally investigate or prosecute any alcohol or drug abuse patient.[facility] CenterIn the event this information is protected by the Federal Confidentiality of Alcohol and Drug Abuse Patient Records regulations: The Federal rules restrict any use of the information to criminally investigate or prosecute any alcohol or drug abuse patient.[facility] CenterIn the event this information is protected by the Federal Confidentiality of Alcohol and Drug Abuse Patient Records regulations: The Federal rules restrict any use of the information to criminally investigate or prosecute any alcohol or drug abuse patient.[facility] CenterIn the event this information is protected by the Federal Confidentiality of Alcohol and Drug Abuse Patient Records regulations: The Federal rules restrict any use of the information to criminally investigate or prosecute any alcohol or drug abuse patient.[facility] CenterIn the event this information is protected by the Federal Confidentiality of Alcohol and Drug Abuse Patient Records regulations: The Federal rules restrict any use of the information to criminally investigate or prosecute any alcohol or drug abuse patient.[facility] CenterIn the event this information is protected by the Federal Confidentiality of Alcohol and Drug Abuse Patient Records regulations: The Federal rules restrict any use of the information to criminally investigate or prosecute any alcohol or drug abuse patient.[facility] CenterIn the event this information is protected by the Federal Confidentiality of Alcohol and Drug Abuse Patient Records regulations: The Federal rules restrict any use of the information to criminally investigate or prosecute any alcohol or drug abuse patient.[facility] CenterIn the event this information is protected by the Federal Confidentiality of Alcohol and Drug Abuse Patient Records regulations: The Federal rules restrict any use of the information to criminally investigate or prosecute any alcohol or drug abuse patient.[facility] CenterIn the event this information is protected by the Federal Confidentiality of Alcohol and Drug Abuse Patient Records regulations: The Federal rules restrict any use of the information to criminally investigate or prosecute any alcohol or drug abuse patient.[facility] CenterIn the event this information is protected by the Federal Confidentiality of Alcohol and Drug Abuse Patient Records regulations: The Federal rules restrict any use of the information to criminally investigate or prosecute any alcohol or drug abuse patient.[facility] CenterIn the event this information is protected by the Federal Confidentiality of Alcohol and Drug Abuse Patient Records regulations: The Federal rules restrict any use of the information to criminally investigate or prosecute any alcohol or drug abuse patient.[facility] CenterIn the event this information is protected by the Federal Confidentiality of Alcohol and Drug Abuse Patient Records regulations: The Federal rules restrict any use of the information to criminally investigate or prosecute any alcohol or drug abuse patient.[facility] CenterIn the event this information is protected by the Federal Confidentiality of Alcohol and Drug Abuse Patient Records regulations: The Federal rules restrict any use of the information to criminally investigate or prosecute any alcohol or drug abuse patient.[facility] CenterIn the event this information is protected by the Federal Confidentiality of Alcohol and Drug Abuse Patient Records regulations: The Federal rules restrict any use of the information to criminally investigate or prosecute any alcohol or drug abuse patient.[facility] CenterIn the event this information is protected by the Federal Confidentiality of Alcohol and Drug Abuse Patient Records regulations: The Federal rules restrict any use of the information to criminally investigate or prosecute any alcohol or drug abuse patient.[facility] CenterIn the event this information is protected by the Federal Confidentiality of Alcohol and Drug Abuse Patient Records regulations: The Federal rules restrict any use of the information to criminally investigate or prosecute any alcohol or drug abuse patient.[facility] CenterIn the event this information is protected by the Federal Confidentiality of Alcohol and Drug Abuse Patient Records regulations: The Federal rules restrict any use of the information to criminally investigate or prosecute any alcohol or drug abuse patient.[facility] CenterIn the event this information is protected by the Federal Confidentiality of Alcohol and Drug Abuse Patient Records regulations: The Federal rules restrict any use of the information to criminally investigate or prosecute any alcohol or drug abuse patient.[facility] CenterIn the event this information is protected by the Federal Confidentiality of Alcohol and Drug Abuse Patient Records regulations: The Federal rules restrict any use of the information to criminally investigate or prosecute any alcohol or drug abuse patient.[facility] CenterIn the event this information is protected by the Federal Confidentiality of Alcohol and Drug Abuse Patient Records regulations: The Federal rules restrict any use of the information to criminally investigate or prosecute any alcohol or drug abuse patient.[facility] CenterIn the event this information is protected by the Federal Confidentiality of Alcohol and Drug Abuse Patient Records regulations: The Federal rules restrict any use of the information to criminally investigate or prosecute any alcohol or drug abuse patient.[facility] CenterIn the event this information is protected by the Federal Confidentiality of Alcohol and Drug Abuse Patient Records regulations: The Federal rules restrict any use of the information to criminally investigate or prosecute any alcohol or drug abuse patient.[facility] Care Teams (unrecognized sec tion and content) Grounds And Nursery Specialist Relationship Specialty Start Date End Date Roland Serrano DO PCP - General 09/21/07 Kizzy Galloway RN Specialty Circus Performer Radiation Oncology 06/12/21 Grounds And Nursery Specialist Relationship Specialty Start Date End Date Roland Serrano DO PCP - General 09/21/07 [place] [address] [place], [place] [id number] Specialty Circus Performer Radiation Oncology 06/12/21 Grounds And Nursery Specialist Relationship Specialty Start Date End Date Roland Serrano DO [facility] - General 09/21/07 [place] [address] [place] [address] Specialty Circus Performer Radiation Oncology 06/12/21 Grounds And Nursery Specialist Relationship Specialty Start Date End Date Roland Serrano DO [facility] General 09/21/07 [place] [address] [place] [address] Specialty Circus Performer Radiation Oncology 06/12/21 Grounds And Nursery Specialist Relationship Specialty Start Date End Date Roland Serrano DO PCP - General 09/21/07 [place] [address] [place] [address] Specialty Circus Performer Radiation Oncology 06/12/21 Grounds And Nursery Specialist Relationship Specialty Start Date End Date Roland Serrano DO PCP - General 09/21/07 Kizzy Galloway RN [id number] [place] [address] Specialty Circus Performer Radiation Oncology 06/12/21 Grounds And Nursery Specialist Relationship Specialty Start Date End Date Roland Serrano DO PCP - General 09/21/07 Kizzy Galloway RN [address] [place] [address] Specialty Circus Performer Radiation Oncology 06/12/21 Grounds And Nursery Specialist Relationship Specialty Start Date End Date Roland Serrano DO PCP - General 09/21/07 Kizzy Galloway RN [id number] [place] [address] Specialty Circus Performer Radiation Oncology 06/12/21 Grounds And Nursery Specialist Relationship Specialty Start Date End Date Roland Serrano DO PCP - General 09/21/07 [place] [address] [place] [address] Specialty Circus Performer Radiation Oncology 06/12/21 Grounds And Nursery Specialist Relationship Specialty Start Date End Date Roland Serrano DO PCP - General 09/21/07 [place] [address] [place] [address] Specialty Circus Performer Radiation Oncology 06/12/21 Grounds And Nursery Specialist Relationship Specialty Start Date End Date Roland Serrano DO PCP - General 09/21/07 [place] [address] [place] [address] Specialty Circus Performer Radiation Oncology 06/12/21 Grounds And Nursery Specialist Relationship Specialty Start Date End Date Roland Serrano DO PCP - General 09/21/07 Kizzy Galloway RN [id number] [place] [address] Specialty Circus Performer Radiation Oncology 06/12/21 Grounds And Nursery Specialist Relationship Specialty Start Date End Date Roland Serrano DO PCP - General 09/21/07 [place] [address] [place] [address] Specialty Circus Performer Radiation Oncology 06/12/21 Grounds And Nursery Specialist Relationship Specialty Start Date End Date Roland Serraon DO PCP - General 09/21/07 Kizzy Galloway RN [id number] [place] [address] Specialty Circus Performer Radiation Oncology 06/12/21 Grounds And Nursery Specialist Relationship Specialty Start Date End Date Roland Serrano DO PCP - General 09/21/07 [place] [address] [place] [address] Specialty Circus Performer Radiation Oncology 06/12/21 Grounds And Nursery Specialist Relationship Specialty Start Date End Date Roland Serrano DO PCP - General 09/21/07 [place] [address] [place], [place] [id number] Specialty Circus Performer Radiation Oncology 06/12/21 Grounds And Nursery Specialist Relationship Specialty Start Date End Date Roland Serrano DO PCP - General 09/21/07 Kizzy Galloway RN [id number] [place] [id number] Specialty Circus Performer Radiation Oncology 06/12/21 Grounds And Nursery Specialist Relationship Specialty Start Date End Date Roland Serrano DO PCP - General 09/21/07 [place] [address] [place] [address] Specialty Circus Performer Radiation Oncology 06/12/21 Grounds And Nursery Specialist Relationship Specialty Start Date End Date Roland Serrano DO PCP - General 09/21/07 Kizzy Galloway RN [id number] [place] [address] Specialty Circus Performer Radiation Oncology 06/12/21 Team Status: Active Member [...] May 04, 2024 Dee Dee Espana APRN TESTING MACHINE OPERATOR-C Attending Provider Act lcua Start: May 04, 2024 End: May 04, [...] June 29, 2024 End: June 29, 2024 Grounds And Nursery Specialist Relationship Specialty Start Date End Date Roland Serrano DO PCP - General 09/21/07 Kizzy Galloway RN [id number] [place] [id number] Specialty Circus Performer Radiation Oncology 06/12/21 Grounds And Nursery Specialist Relationship Specialty Start Date End Date Roland Serrano DO PCP - General 09/21/07 Kizzy Galloway RN [id number] [place] [id number] Specialty Circus Performer Radiation Oncology 06/12/21 Grounds And Nursery Specialist Relationship Specialty Start Date End Date Roland Serrano DO PCP - General 09/21/07 Kizzy Galloway RN [address] [place] [address] Specialty Circus Performer Radiation Oncology 06/12/21 Kathryn Painter, RN Specialty Circus Performer Clinical Outcomes Manager Oncology 08/11/24 Grounds And Nursery Specialist Relationship Specialty Start Date End Date Roland Serrano DO PCP - General 09/21/07 [place] [address] [place], [place] [address] Specialty Circus Performer Radiation Oncology 06/12/21 Kathryn Painter, RN Specialty Circus Performer Clinical Outcomes Manager Oncology 08/11/24 Grounds And Nursery Specialist Relationship Specialty Start Date End Date Roland Serrano MD [address] [place] [address] PCP - General Internal Medicine 02/13/24 Grounds And Nursery Specialist Relationship Specialty Start Date End Date Roland Serrano MD [address] [facility] [place] [address] PCP - General Internal Medicine 02/13/24 Grounds And Nursery Specialist Relationship Specialty Start Date End Date Roland Serrano MD [address] [facility] [place] [address] PCP - General Internal Medicine 02/13/24 Grounds And Nursery Specialist Relationship Specialty Start Date End Date Roland Serrano MD [address] [facility] [place] [address] PCP - General Internal Medicine 02/13/24 [...] November 26, 2024 End: November 26, 2024 Grounds And Nursery Specialist Relationship Specialty Start Date End Date Roland Serrano MD [address] [facility] [place] [address] PCP - General Internal Medicine 02/13/24 Grounds And Nursery Specialist Relationship Specialty Start Date End Date Roland Serrano MD [address] [facility] [place] [id number] PCP - General Internal Medicine 02/13/24 Grounds And Nursery Specialist Relationship Specialty Start Date End Date Roland Serrano DO [address] [place] [address] PCP - General Internal Medicine 12/10/24 Goals [...] BE BASED ON THE PRIMARY CLINICAL RECORDS. [facility] [employer] [facility]. provides no warranty or guarantee of the accuracy or completeness of information in this document.
[2025-01-04 15:21] LABS: Thyroid Stimulating Hormone 0.081 uIU/mL (0.358-3.740)
[2025-01-04 15:27] LABS: Free T4 0.82 ng/dL (0.76-1.46)
== END 2025-01-04 14:26 | disposition home or self-care (01) ==
LOC: LAB 14:27
PROVIDERS: PCP Internal Medicine; Visit Provider Internal Medicine
DX: E05.20 Thyrotoxicosis with toxic multinodular goiter without thyrotoxic crisis or storm (principal)
CPT/HCPCS: 36415; 84439; 84443

== ENCOUNTER 2025-02-28 11:02 | Outpatient (OUT) | payer BC, SELFPAY ==
[2025-02-28 11:18] LABS: Basophils Percent Auto 0.7 % (0.2-2.0); Eosinophils Absolute Auto 0.1 10^3/uL (0.0-0.7); Eosinophils Percent Auto 2.7 % (0.9-7.0); Hematocrit 44.1 % (36.0-48.0); Immature Granulocytes Abs Auto 0.01 10^3/uL (0.00-0.03); Immature Granulocytes Pct Auto 0.2 % (0.0-0.5); Lymphocytes Absolute Auto 1.4 10^3/uL (1.2-3.8); Lymphocytes Percent Auto 33.7 % (20.5-60.0); Mean Corpuscular Hemoglobin 32.3 pg (26.7-34.0); Mean Platelet Volume 9.2 fL (9.5-13.5); Monocytes Absolute Auto 0.4 10^3/uL (0.3-0.8); Monocytes Percent Auto 9.8 % (1.7-12.0); Neutrophils Absolute Auto 2.2 10^3/uL (1.4-6.5); Neutrophils Percent Auto 52.9 % (43.0-75.0); Platelet Count 202 10^3/uL (150-450); Red Blood Count 4.64 10^6/uL (4.20-5.40); Red Cell Distribution Width 13.1 % (11.0-15.0); White Blood Count 4.1 10^3/uL (4.0-11.0)
--- OUTSIDE RECORDS SUMMARY | 2025-02-28 11:21 | XMS_ITS | CCD ---
Author Organization [facility] Care Team Providers Care Production Crew Supervisor Name Role Phone Roland Serrano DO Primary [...] Attending Unavailable MAGGIE, DR YOUSSEF Consulting Unavailable SALOMON JACOME Attending [...] Admitting Unavailable MAGGIE, DR YOUSSEF Admitting Unavailable MAGGIE, DR YOUSSEF Attending Unavailable BALL, DR YOUSSEF Consulting Unavailable MAGGIE, DR YOUSSEF Primary Care Unavailable MAGGIE, DR YOUSSEF Primary Care Unavailable MAGGIE, DR YOUSSEF Admitting Unavailable MAGGIE, DR YOUSSEF Attending Unavailable BALL, DR YOUSSEF Consulting Unavailable WEST, DR JACOB Parrish Consulting Unavailable Nilesh RN, Kizzy Unavailable ROLAND SERRANO Primary Care Unavailable MIKE PRESLEY Referring Unava ilable Roland Serrano DO Primary Care Provider Inocencio SHELTON, Kathryn Philippe Unavailable Unavaila Roland Edmondson MD Primary Care Provider JR. EN, MARY Chase Attending Unavaila ble STEPANICJR., MARY Chase Referring Unavaila ble STEPANIC, ., MARY Chase Attending Unavaila ble STEPJR. JOHANA, MARY Chase Attending Unavaila ble STEPJR. JOHANA, MARY Chase Referring Unavaila ble STEPJR. JOHANA, MARY Chase Attending Unavaila ble LEIGH VALENZUELA Attending Unavailable EASTON, DYAN Haq Attending Unavailable EASTON, DYAN Haq Referring Unavailable DYAN ROBB Attending Unavailable Roland Serrano DO Primary Care Provider GENEVA VELIZ Attending Unavailable ROLAND SERRANO Primary Care Unavailable OHLIGER, EDWARD Gibbs Referring Unavailable ROLAND SERRANO Primary Care Unavailable OHLIGER, EDWARD Gibbs Referring Unavailable BALLROLAND Primary Care Unavailable OHLIGER, EDWARD Gibbs Attending Unavailable MAGGIE, ROLAND Gibbs Primary Care Unavailable OHLIGER, EDWARD Gibbs Referring Unavailable MAGGIE, ROLAND Gibbs Primary Care Unavailable RCAHELHENRY Attending Unavailable ROLAND SERRANO Primary Care Unavailable RACHELHENRY Referring Unavailable ROLAND SERRANO Primary Care Unavailable EROSSYSOUTH Referring Unavailable ROLAND SERRANO Primary Care Unavailable EROSSYSOUTH Referring Unavailable ROLAND SERRANO Primary Care Unavailable EROSSYSOUTH Attending Unavailable RACHELHENRY Referring Unavailable ROLAND SERRANO Primary Care Unavailable SURMELODY ESPINAL Attending Unavailable NILLSouth Attending Unavailable Allergies Allergy Classification Reported Allergen(s) Allergy Type Date of Onset Reaction(s) Facility (6 sources) patient allergy list reviewed by nurse or physicia Propensity to adverse reactions 8 Comment:Done [facility] Other (6 sources) Allergies Reconciled Propensity to adverse reactions Unknown [facility] Other (1 source) No Known Medication Allergies; Translations: [No Known Medication Allergies] Propensity to adverse reactions (disorder) [facility] Repository Medications Current Medications Medication Drug Class(es) Dates Sig (Normalized) Sig (Original) [id number] 200 actuat albuterol 0.09 mg/actuat metered dose [...] for 30 days Apr, Active Start: 04-23-2023 End: 02-21-2025 take 2 puff(s) by inhalation every four hours as needed for cough albuterol HFA (PROVENTIL HFA, VENTOLIN HFA) 90 mcg/actuation inhaler INHALE 2 PUFFS EVERY 4 HOURS NEEDED FOR COUGH OR SHORTNESS OF BREATH FOR 30 DAYS 06/17/2023 02/21/2025 Discontinued (Course of therapy completed) Start: 01-20-2023 take 2 puff(s) by in [...] 30 DAYS amoxicillin 875 mg oral tablet (11 sources) Penicillin-class Antibacterial Start: take 1 tablet by mouth twice daily Amoxicillin 875 mg tablet Active 875 MG PO Twice daily 14 November 26, 2024 12:00am Start: 05-13-2023 take 4 [...] Active calcium carbonate 1500 mg oral tablet (6 sources) Start: 09-06-2020 take 1 tablet by [...] twice daily. Take 1 tablet by corinne two times a day. carvedilol 25 mg oral tablet (20 sources) alpha-Adrenergic Alisa, beta-Adrenergic Alisa Start: 11-30-2024 take 1 tablet by mouth every twelve hours carvedilol (Coreg) 25 mg tablet Take 1 tablet (25 mg) by mouth every 12 hours. 11/30/2024 Active Start: 07-30-2024 take 1 tablet by corinne twice daily Carvedilol 25 mg tablet Active 0 .ROUTE .COMPLEX 60 July 30, 2024 11:49am TAKE ONE TABLET BY MOUTH TWICE A DAY Start: 09-06-2020 End: 07-30-2024 take 1 tablet by mouth twice daily carvedilol (COREG) 25 mg tablet Take 1 tablet by mouth twice daily. 06/07/2021 Active Start: 06-29-2019 End: 09-06-2020 take 1 tablet by mouth twice daily Carvedilol 12.5 mg tablet Discontinued 12.5 MG PO Twice daily June 28, 2019 11:00pm September 06, 2020 7:55am Comment on above: Take 1 tablet by corinne twice daily. celecoxib 200 mg oral capsule (6 sources) Nonsteroidal Anti-inflammatory Drug Start: 04-28-20 End: 11-01-20 celecoxib (CeleBREX) 200 MG capsule 04/28/2024 11/01/2024 Discontinued (Med list cleanup) cholecalciferol, vitD3,/vit K2 (VITAMIN D3-VITAMIN K2 ORAL) (5 sources) take 1 tablet by mouth once daily cholecalciferol, vitD3,/vit K2 (VITAMIN D3-VITAMIN K2 ORAL) Take 1 tablet by mouth once daily. Plus vitamin A and K1 Active diclofenac sodium 0.01 mg/mg topical gel (10 sources) Nonsteroidal Anti-inflammatory Drug Start: 08-11-20 Voltaren 1 % as directed Transdermal BID for 30 days Jul, Active dicyclomine hydrochloride 10 mg oral capsule (20 sources) Anticholinergic Start: 07-10-20 End: 06-10-20 take 1 capsule by mouth at bedtime as needed dicyclomine (BENTYL) 10 mg capsule Take 1 capsule by mouth before meals and at bedtime. As needed. 07/10/2021 Active Start: 06-29-2019 End: 09-06-2020 take 1 tablet [...] before meals and at bedtime. As needed. enteric contrast (will be provided with radiology test) (20 sources) Start: 05-29-2021 enteric contrast (will be provided with radiology [...] Active ferrous sulfate 28 mg oral tablet (5 sources) take 28 mg by mouth once [...] daily May 04, 2024 12:00am Start: 03-25-2023 End: 02-21-2025 take 1 puff(s) by inhalation twice daily ADVAIR DISKUS 250-50 mcg/dose inhaler INHALE 1 PUFF TWICE A DAY FOR 30 DAYS 05/12/2023 02/21/2025 Discontinued (Course of therapy completed) Comment on above: INHALE 1 PUFF TWICE [...] 03, 2024 11:00pm Start: 08-11-2020 End: 08-20-2021 ibuprofen (MOTRIN) 800 mg ta blet Take by mouth q 8 HR. 08/11/2020 Active Start: 08-11-2020 take 1 tablet by corinne [...] Combination No.4 (Probiotic) 3 billion cell capsule (3 sources) Start: take 3 capsules by mouth once daily Lactobacillus Combination No.4 (Probiotic) 3 billion cell capsule Active 3000 MMU CELLS PO Daily May 03, 2024 11:00pm administer with a meal Start: 05-04-2024 take 3 capsules by m out once daily Lactobacillus Combination No.4 (Probiotic) 3 billion cell capsule Active 3000 MMU CELLS PO Daily May 04, 2024 12:00am administer with a meal Magnesium (5 sources) take 240 mg by mouth twice daily MAGNESIUM ORAL Take 240 mg by mouth two times a day. Active meloxicam 15 mg oral tablet (6 sources) Nonsteroidal Anti-inflammatory Drug Start: 02-21-2025 End: 05-22-2025 take 1 tablet by mouth once daily meloxicam (MOBIC) 15 mg tablet Take 1 tablet by mouth once daily. 30 tablet 2 02/21/2025 05/22/2025 Active Start: 08-20-2021 End: 05-04-2024 take 1 tablet by mouth once daily as needed for pain Meloxicam 15 mg tablet Discontinued 15 MG PO Daily as needed for Pain August 19, 2021 11:00pm May 04, 2024 6:53am Start: 06-13-2021 take 1 tablet by corinne once daily meloxicam (MOBIC) 15 MG tablet Take 1 tablet by mouth daily 0 06/13/2021 Active methazolAMIDE 25 mg oral tablet (5 sources) take 1 tablet by mouth three times daily methazolAMIDE (Neptazane) 25 mg tablet Take 1 tablet (25 mg) by mouth 3 times a day. Active methIMAzole 10 mg oral tablet (20 sources) Thyroid Hormone Synthesis Inhibitor Start: take 1 tablet by mouth once daily [...] d aily. Take by mouth. Multivitamin Tablet (2 sources) Start: 06-29-20 take 1 tablet by mouth once daily Multivitamin Tablet Active 1 TAB PO Daily June 28, 2019 11:00pm mupirocin 0.02 mg/mg topical ointment (6 sources) RNA Synthetase Inhibitor Antibacterial Start: 03-04-20 Mupirocin 2 % 1 application Externally Twice a day for 10 days Feb, Active NHFE3-UIR-EJO-FISH OIL-L.CASEI ORAL (20 sources) [id number] SH OIL-L.CASEI ORAL Take by mouth once daily. Active [id number] SH OIL-L.CASEI ORAL Take by mouth once [...] Serotonin and Norepinephrine Reuptake Inhibitor Start: 07-08-2024 End: 02-17-2025 take 1 capsule by mouth once daily at mealtime Venlafaxine 150 mg capsule,extended release 24hr Active 0 .ROUTE .COMPLEX January 03, 2025 1:15pm TAKE ONE CAPSULE BY MOUTH DAILY WITH [...] 1 capsule by mouth once daily at bedtime venlafaxine ER (EFFEXOR XR) 150 mg 24 hr capsule Take 150 mg by mouth daily at bedtime. 06/23/2019 Active take 1 tablet by mouth once [...] Active Vitamin B Complex Tablet Extended Release (2 sources) Start: 09-06-2020 take 1 tablet by mouth once daily Vitamin B Complex Tablet Extended Release Active 1 TAB PO Daily September 05, 2020 11:00pm Completed/Discontinued Medications Medication Drug Class(es) Dates Sig (Normalized) Sig (Original) acetaminophen 500 mg oral tablet (7 sources) Start: 09-02-2023 End: 02-21-2025 take 500-1000 mg by mouth every six hours as needed acetaminophen (TYLENOL) 500 mg tablet Take 1-2 tablets by mouth every 6 hours as needed for pain. Do not exceed 3-4g/24hr. 09/02/2023 02/21/2025 Discontinued (Course of therapy completed) Comment on above: Take 1-2 tablets by mouth every 6 hours as needed for pain. Do not exceed 3-4g/24hr. acetaminophen 325 mg / HYDROcodone bitartrate 5 mg oral tablet (11 sources) Opioid Agonist Start: 09-14-2020 End: 08-20-2021 take 1 tablet by mouth every four to six hours as needed for pain Hydrocodone-Acetami nophen ([place]) 5-325 mg tablet Discontinued 1 - 2 TAB PO EVERY 4-6 HOURS as needed for Pain 50 7 September 14, 2020 August 20, 2021 10:25am take 1-2 tablets by mouth every six hours as needed HYDROcodone-Acetaminophen 5-325 MG 1-2 t ablet as needed Oral every 6 hrs for 7 days Active acetaminophen 325 mg / oxyCODONE hydrochloride 5 mg oral tablet (6 sources) Opioid Agonist Start: 08-20-2021 End: 05-04-2024 [...] Take 500 mg by mouth once daily. doxycycline hyclate 100 mg oral tablet (6 sources) Tetracycline -class Drug Start: 09-14-2020 End: 08-20-2021 take 1 tablet by mouth twice daily as needed Doxycycline Hyclate 100 mg tablet Discontinued 100 MG PO Twice daily as needed for abdominal cramping August 20, 2021 10:26am August 20, 2021 10:27am folic acid 1 mg / polysaccharide iron complex 150 mg / vitamin b12 0.025 mg oral capsule (3 sources) Vitamin B12 Start: 08-20-2021 End: 05-04-2024 take 1 capsule by mouth once daily Iron Ps Tgytubo-C93-Uxash Acid (Poly-Iron 150 Forte) 150-25-1 mg-mcg-mg capsule Discontinued 1 CAP PO Daily August 19, 2021 11:00pm May 04, 2024 6:53am Lactobacillus Combination No.4 (Probiotic) 3 billion cell Capsule (3 sources) Start: 06-29-2019 End: 09-06-2020 Lactobacillus Combination No.4 (Probiotic) 3 billion cell Capsule Discontinued 1 CAP PO Daily June 28, 2019 11:00pm September 06, 2020 7:56am Start: 06-29-2019 End: 09-06-2020 Lactobacillus Combination No .4 (Probiotic) 3 billion cell Capsule Discontinued 1 CAP PO Daily June 29, 2019 12:00am September 06, 2020 8:56am Lidocaine (12 sources) Antiarrhythmic, Amide Local Anesthetic Start: 01-13-2025 End: 01-13-2025 lidocaine (Xylocaine) 10 mg/mL (1 %) injection 9 mL Start: 01-13-2025 End: 01-13-2025 9 mL, injection, Once PRN Pr ocedure, Starting on Junie 01/13/25 at 1123, For 1 dose Start: 08-11-2020 Lidocaine 5 % 1 patch remove after 12 hours Externally Once a day Jul, Active meclizine hydrochloride 12.5 mg oral tablet (1 source) Antiemetic Start: 07-07-2021 End: 07-07-2021 meclizine (ANTIVERT) tablet 25 mg Riggins 5-Cpi-Ijb-Fish Oil (Fish Oil) 1,000 mg (120 mg-180 mg) Capsule (3 sources) Start: 10-15-2021 End: 11-01-2021 take 1 capsule by mouth twice daily Riggins 1-Noy-Qsg-Fish Oil (Fish Oil) 1,000 mg (120 mg-180 mg) Capsule Discontinued 1 CAP PO Twice daily October 15, 2021 12:00am November 01, 2021 8:04pm Start: 10-15-2021 End: 11-01-2021 take 1 capsule by mouth twice daily Riggins 2-Bdf-Dtk-Fish Oil (Fish Oil) 1,000 mg (120 mg-180 mg) Capsule Discontinued 1 CAP PO Twice daily October 15, 2021 1:00am November 01, 2021 9:04pm Riggins 8-Hjr-Evo-Fish Oil (Fish Oil) 60-90-500 mg Capsule (3 sources) Start: 09-06-2020 End: 08-20-2021 take 1 capsule by mouth once daily Riggins 2-Siz-Yxp-Fish Oil (Fish Oil) 60-90-500 mg Capsule Discontinued 1 CAP PO Daily September 05, 2020 11:00pm August 20, 2021 10:26am Start: 09-06-2020 End: 08-20-2021 take 1 capsule by mouth once daily Riggins 1-Rng-Rri-Fish Oil (Fish Oil) 60-90-500 mg Capsule Discontinued 1 CAP PO Daily September 06, 2020 12:00am August 20, 2021 11:26am ondansetron 8 mg oral tablet (4 sources) Serotonin-3 Receptor Antagonist Start: 08-20-2021 End: 10-15-2021 Ondansetron Hcl 8 mg tablet Discontinued 8 MG PO As Directed as needed for Nausea August 19, 2021 11:00pm October 15, 2021 10:47am Start: 06-21-2021 ondansetron (Z OFRAN) 8 MG tablet Take 8 mg by mouth 0 06/21/2021 Active polyethylene glycol 3350 054667 mg / potassium chloride 2970 mg / sodium bicarbonate 6740 mg / sodium chloride 5860 mg / sodium sulfate 02472 mg powder for oral solution (1 source) Osmotic Laxative Start: 08-07-2022 End: 08-07-2022 peg 3350-Electrolytes (GOLYTELY) 236-22.74-6.74 -5.86 gram suspension Indications: Rectal bleeding Take 4,000 mL by mouth one time only for 1 dose. Refer to printed prep instructions from your provider. 4000 mL 0 08/07/2022 08/07/2022 Comment on above: Take 4,000 mL by corinne one time only for 1 dose. Refer to printed prep instructions from your provider. 1 ml triamcinolone acetonide 40 mg/ml injection (20 sources) Corticosteroid Start: 01-13-2025 End: 01-13-2025 triamcinolone acetonide (Kenalog-40) injection 40 mg Start: 01-13-2025 End: 01-13-2025 40 mg, intra-articular, Once PRN Procedure, Starting on Junie 01/13/25 at 1123, For 1 dose Start: 02-01-2020 Kenalog -40 mg Jan, 40 [...] daily. vitamin b12 1 mg oral tablet (3 sources) Vitamin B12 Start: 06-29-2019 End: 09-06-2020 Cyanocobalamin (Vitamin B-12) (Vitamin B-12) 1,000 mcg Tablet Discontinued 1000 MG PO Daily June 28, 2019 11:00pm September 06, 2020 7:56am Zygest (1 source) Start: 09-06-2020 End: 08-20-2021 take 1 capsule by mouth once daily Zygest Discontinued 1 CAP PO Daily September 06, 2020 12:00am August 20, 2021 11:27am Zygest 1 capsule (2 sources) Start: 09-06-2020 End: 08-20-2021 take 1 capsule by mouth once daily Zygest 1 capsule Discontinued 1 CAP PO Daily September 05, 2020 11:00pm August 20, 2021 10:27am Problems Active Problems Problem Classification Problem Date Documented Da te Episodic/Chronic Acute bronchitis (2 sources) Acute bronchitis due to other specified organisms; Translations: [Acute bronchitis] Episodic Anxiety disorders (20 sources) Generalized anxiety disorder; Translations: [Generalized anxiety disorder] Onset: 02-05-2017 Chronic Asthma (20 sources) Mild intermittent asthma; Translations: [Mild intermittent asthma, uncomplicated] Chronic Biliary tract disease (7 sources) Cholestasis; Translations: [Obstruction of bile duct] Chronic Cancer of uterus (20 sources) Endometrial carcinoma; Translations: [Malignant neoplasm of endometrium] Onset: 11-17-2018 Chronic Comment on above: s/p SURENDRA/BSO, radiati on therapy Cancer of uterus (1 source) History of [...] sources) Hypertensive disorder; Translations: [Essential (primary) hypertension] 07-08-2019 Chronic Fluid and electrolyte disorders (1 [...] 10-07-2024 Episodic Other and unspecified benign neoplasm (2 sources) Bilateral lipoma of upper limbs; Translations: [Benign lipomatous neoplasm of skin and subcutaneous tissue of right arm] 06-29-2024 Episodic Other connective tissue disease (19 sources) History of total hip arthroplasty; Translations: [Presence of right artificial hip joint] Chronic Other connective tissue disease (3 sources) Presence of right artificial hip joint; Translations: [Presence of right artificial hip joint] Onset: 01-17-2025 Chronic Other connective tissue disease (8 sources) History of repair of hip joint; [...] symptoms referable to limbs] 12-02-2024 Episodic Other connective tissue disease (1 source) Trochanteric bursitis of right hip; Translations: [Trochanteric bursitis, right hip] 01-13-2025 Episodic Other connective tissue disease (2 sources) Trochanteric bursitis, right hip; Translations: [Trochanteric bursitis, right hip] Onset: 01-13-2025 Episodic Other connective tissue disease (4 sources) Pain of left forearm; Translations: [Pain in left forearm] 01-17-2025 Episodic Other connective tissue disease (2 sources) Pain in left forearm; Translations: [Pain in left forearm] Onset: 01-17-2025 Episodic Other diseases of veins and lymphatics [...] unspecified] 06-27-2023 Chronic Other lower respiratory disease (1 source) Interstitial pulmonary disease, unspecified; Translations: [Interstitial pulmonary [...] Onset: 06-17-2016 Chronic Other nervous system disorders (2 sources) Other chronic pain; Translations: [Other chronic pain] Onset: 01-17-2025 Chronic Other nervous system disorders (4 sources) Paresthesia of right lower limb; Translations: [Paresthesia of skin] 12-02-2024 Episodic Other non-traumatic joint disorders (14 sources) Hip pain; Translations: [Pain in right hip] 10-29-2023 Episodic Comment on above: Problem List clean-u p per request of Phys. EHR Cmte Other non-traumatic joint disorders (1 source) Chronic pain following right total hip arthroplasty; Translations: [Pain in right hip] 01-17-2025 Episodic Other non-traumatic joint disorders (3 sources) Pain in right hip; Translations: [Pain in right hip] Onset: 12-10-2024 Episodic Other screening for suspected conditions (not mental disorders or infectious disease) (15 sources) Encounter for screening mammogram for malignant [...] pulmonary hypertension; Translations: [Other secondary pulmonary hypertension] 06-27-2023 Chronic Residual codes; unclassified (4 sources) Preventive procedure; Translations: [Encounter for other specified prophylactic measures] Episodic Spondylosis; intervertebral disc disorders; other back problems (17 sources) Lumbar radiculopathy; Translations: [Radiculopathy, lumbar region] Onset: 01-06-2025 11-01-2024 Episodic Thyroid disorders (20 sources) Autoimmune thyroiditis; Translations: [Autoimmune thyroiditis] Chronic [...] Onset: 09-12-2018 Unclassified (1 source) NO SHOW 10-05-2024 Unclassified (1 source) Low back pain, unspecified; Translations: [Low back pain, unspecified] Onset: 01-13-2025 Unclassified (1 source) Chronic pain following right total hip arthroplasty 01-17-2025 Past or Other Problems Problem Classification Problem [...] Onset: 12-05-2017 Episodic Deficiency and other anemia (10 sources) Anemia; Translations: [Anemia, unspecified] Onset: 09-02-2023 [...] acid dehydrogenase (LDH)] Onset: 09-12-2018 Episodic Other nutritional; endocrine; and metabolic disorders [...] (suspected) exposure to COVID-19] Resolved: 10-17-2021 Unclassified (1 source) Low back pain, unspecified; Translations: [Low back pain, unspecified] Onset: 01-13-2025 Viral infection (4 sources) Viral disease; Translations: [Unspecified viral infection, in conditions classified elsewhere and of unspecified site] Onset: 12-14-2018 Episodic Viral infection (1 source) COVID-19 Results Test Name Value Interpretation Reference Range Facility C-REACTIVE PROTEINon 025 CRP [Mass/Vol] mg/dL NINF - 0.9 mg/dL [facility] CBC panel Auto (Bld)on 02-21 Erythrocyte distribution width (RBC) [Ratio] 13.2 % 11.5 - 15.0 % [facility] Hematocrit (Bld) [Volume fraction] 45.8 % 36.0 - 46.0 % [facility] Hemoglobin (Bld) [Mass/Vol] 15.1 g/dL 11.5 - 15.5 g/dL [facility] Interpretation and review of laboratory results Normal [facility] MCH (RBC) [Entitic mass] 31.4 pg 26.0 - 34.0 pg [facility] MCHC (RBC) [Mass/Vol] 33 g/dL 30.5 - 36.0 g/dL [facility] MCV (RBC) [Entitic vol] 95.2 fL 80.0 - 100.0 fL [facility] Nucleated RBC (Bld) [#/Vol] NINF [facility] Platelet mean volume (Bld) [Entitic vol] 9.6 fL 9.0 - 12.7 fL [facility] Platelets (Bld) [#/Vol] 241 10*3/uL [facility] RBC (Bld) [#/Vol] 4.81 10*6/uL 3.90 - 5.2 0 m/uL [facility] WBC (Bld) [#/Vol] 4.95 10*3/uL [facility] Erythrocyte distribution width (RBC) [Ratio] 13.2 % Normal 11.5-15.0 [facility] Comment on above: Order Comment: Speci men Type: BLOOD SPECIMEN Ordering Facility: [facility] Address: [address] [place] [address] Performed By: #### 4 [id number], 04455-4 #### [facility] CLIA [id number] [address] [place] [address] [place] OF [facility] Hematocrit (Bld) [Volume fraction] 45.8 % Normal 36.0-46.0 [facility] Comment on above: Order Comment: Speci men Type: BLOOD SPECIMEN Ordering Facility: [facility] Address: [address] [place] [address] Performed By: #### 4 [id number], [id number] #### [facility] CLIA [id number] [address] [place] [address] [place] Hemoglobin (Bld) [Mass/Vol] 15.1 g/dL Normal 11.5-15.5 [facility] Comment on above: Order Comment: Speci men Type: BLOOD SPECIMEN Ordering Facility: [facility] Address: [address] [place] [address] Performed By: #### 4 537-7, [id number] #### [facility] CLIA [id number] [address] [place] [address] [place] MCH (RBC) [Entitic mass] 31.4 pg Normal 26.0-34.0 [facility] Comment on above: Order Comment: Speci men Type: BLOOD SPECIMEN Ordering Facility: [facility] Address: [address] [place] [address] Performed By: #### 4 537-7, [id number] #### [facility] CLIA [id number] [address] [place] [address] [place] MCHC (RBC) [Mass/Vol] 33.0 g/dL Normal 30.5-36.0 [facility] Comment on above: Order Comment: Speci men Type: BLOOD SPECIMEN Ordering Facility: [facility] Address: [address] [place] [address] Performed By: #### 4 537-7, 28541-6 #### [facility] CLIA [id number] [address] [place] [address] [place] MCV (RBC) [Entitic vol] 95.2 fL Normal 80.0-100.0 [facility] Comment on above: Order Comment: Speci men Type: BLOOD SPECIMEN Ordering Facility: [facility] Address: [address] [place] [address] Performed By: #### 4 537-7, 79339-2 #### [facility] CLIA [id number] [address] [place] [address] [place] Nucleated RBC (Bld) [#/Vol] 10*3/uL Normal <0.01 [facility] Comment on above: Order Comment: Speci men Type: BLOOD SPECIMEN Ordering Facility: [facility] Address: [address] [place], [place] [id number] Performed By: #### 4 537-7, 65807-9 #### [facility] CLIA [id number] [address] [place], [place] [id number] [place] Platelet mean volume (Bld) [Entitic vol] 9.6 fL Normal 9.0-12.7 [facility] Comment on above: Order Comment: Speci men Type: BLOOD SPECIMEN Ordering Facility: [facility] Address: [address] [place] [address] Performed By: #### 4 537-7, 35975-7 #### [facility] CLIA [id number] [address] [place] [address] [place] Platelets (Bld) [#/Vol] 241 10*3/uL Normal 150-400 [facility] Comment on above: Order Comment: Speci men Type: BLOOD SPECIMEN Ordering Facility: [facility] Address: [address] [place] [address] Performed By: #### 4 537-7, 63449-1 #### [facility] CLIA [id number] [address] [place] [address] [place] RBC (Bld) [#/Vol] 4.81 10*6/uL Normal 3.90-5.20 [facility] Comment on above: Order Comment: Speci men Type: BLOOD SPECIMEN Ordering Facility: [facility] Address: [address] [place], [place] [id number] Performed By: #### 4 537-7, 41722-2 #### [facility] CLIA [id number] [address] [place], [place] [id number] [place] WBC (Bld) [#/Vol] 4.95 10*3/uL Normal 3.70-11.00 [facility] Comment on above: Order Comment: Speci men Type: BLOOD SPECIMEN Ordering Facility: [facility] Address: [address] [place] [address] Performed By: #### 4 537-7, 62565-3 #### [facility] CLIA [id number] [address] [place] [address] OF [facility] CNOVon 02-21-2025 CNOV Office Visit (LOORRM ) ISABEL WADDELL ([id number]) 1960 F Date Time Provider Department 02/21/25 10:30 AM [place] During your visit today, we recorded the following information about you: [place] MD 02/21/2025 4:59 PM Signed CONSULT ORTHOPAEDIC: HIP PRIMARY CARE PHYSICIAN: Roland Serrano DO REFERRING PROVIDER: No referring provider defined for this encounter. ASSESSMENT AND PLAN Impression: Right Hip Pain Status Post Right Total Hip Arthroplasty Patient presents for evaluation regarding her right hip. She is status post right primary total of arthroplasty in October [address] Comer at [facility] orthopedics in [facility]. She has greater than 1 year history of slowly progressively worsening right groin and lateral hip and thigh pain. No particular injury or trauma. No issues after surgery in terms of infection, no repeat surgeries. No prior dislocations. She has a an aching dull groin pain particularly with weightbearing activity. She does have some known back issues and has seen spine team back home. No prior spinal surgeries or injections. She recently went to [place] a few weeks ago and had significant trouble walking, as well as riding a bike. Ambulates with no assistive device. She feels that this has significantly worsened from 1 year ago. She apparently did have an infection workup from her index surgeons office which was negative but I do not currently have records of this. No operative reports currently available. On physical examination she has a well-healed posterior lateral hip incision on the right. Mild tenderness palpation of the right greater trochanter. Ambulates with a slightly antalgic gait to the right. Climbs on the exam table without major difficulty. Tolerates passive range of motion of the hip 0-110 with no problem, however does have significant pain with internal rotation external rotation at end range. Pain with resisted hip flexion. She has some dullness to sensation down her RLE, some ttp over her R paraspinal muscles, some mild radiation down her RLE down to her distal thigh. Tenderness to palpation about the mid upper proximal thigh and over the trochanter. No pain with logroll. Radiographs from today demonstrate right total hip arthroplasty hardware, her acetabular component has 1 screw and this appears well fixed. Her femoral component does have signs of aseptic loosening, with a windshield wiper affect approximately, with radiolucencies around the proximal metaphyseal area of the stem, distally there is a stem reaction with a hypertrophic medial cortex with evidence of cortical reaction. We discussed the patient's physical exam and radiographs in detail in the office today. Discussed that the stem is likely loose proximally and potted distally and is causing her femoral component stem pain. Discussed options in terms of treatments with protected weightbearing with crutches / walker, revision in terms of revising her femoral component, need for an ETO to get the stem out and risk of damaging the trochanter, risk of ETO non-union, dislocation, elevated risk of infection in revision scenario, leg leg length discrepancy. Discussed beginning with protected weightbearing with crutches/walker for the next 4 weeks, during this time she will obtain her prior operative reports/implant records, as well as her initial postoperative x-ray images for comparison. Will follow-up with her after we are able to obtain these records. Diagnoses: (Z96.641) Status post right hip replacement (primary encounter diagnosis) (M25.551) Pain in right hip The patient has been ordered: Office Visit on 02/21/25 XR HIP GENERAL 3V PELV/AP/LAT RIGHT XR PELVIS 1V AP COMPLETE BLOOD COUNT *Canceled* SEDIMENTATION RATE, WESTERGREN *Canceled* C-REACTIVE PROTEIN *Canceled* C-REACTIVE PROTEIN COMPLETE BLOOD COUNT SEDIMENTATION RATE, WESTERGREN meloxicam (MOBIC) 15 mg tablet CONSULTS: Total Joint Athroplasty - Risk Calculator Risk Factors for Total Knee Arthroplasty (TKA) Major Risk Factors Obesity normal High: BMI > 40 Moderate: BMI 30-40 Normal: BMI < 30 Diabetes normal High: A1C > 8 Moderate: A1C 7-8 Normal: A1C < 7 Hx of DVT / PE normal High: dx of DVT / PE Normal: no dx of DVT / PE Smoking normal High: Current smoker Normal: Non smoker Narcotics Use normal High:NarxCare >=300 Moderate: 100-299 Normal: 0-99 Depression normal High: PHQ-9 >14 Moderate: PHQ-9 5-14 Normal: PHQ-9 < 5 Area Deprivation Index (VINCENT) Unknown Risk High: VINCENT Score > 75 Moderate: VINCENT 50-75 Normal: VINCENT < 50 Area Deprivation Index (VINCENT) 08/07/2022 06/27/2023 VINCENT Score National Score 70 79 Patient Health Questionnaire (PHQ-9) 09/20/2021 08/04/2024 02/14/2025 PHQ-9 PHQ-2 Score 0 0 0 (0-4) minimal depression, (5-9) mild depression, (10-14) moderate depression, (more content not included)... Normal [facility] CRP SerPl-mCncon 02-21-2025 CRP [Mass/Vol] mg/L Normal <0.9 [facility] Comment on above: Order Comment: Adonis mayo Type: BLOOD SPECIMEN Ordering Facility: [facility] Address: [address] [place] [address] Performed By: #### 1 988-5 #### [facility] CLIA [id number] [address] [place] [address] [place] CRP [Mass/Vol]on 02-21-2025 Interpretation and review of laboratory results Normal [facility] ESR Westergren method (Bld) [Velocity]on 02-21-2025 ESR (Bld) [Velocity] 5 mm/h [facility] Interpretation and review of laboratory results Normal [facility] ESR (Bld) [Velocity] 5 mm/h Normal 0-20 [facility] Comment on above: Order Comment: Adonis mayo Type: BLOOD SPECIMEN Ordering Facility: [facility] Address: [address] [place] [address] Performed By: #### 4 537-7, 51513-1 #### [facility] CLIA [id number] [address] [place] [address] [place] XR HIP 3V PELV+ AP/LAT RTon 02-21-2025 XR HIP 3V PELV+ AP/LAT RT * * *Final Report* * * DATE OF EXAM: Feb 21 2025 10:48AM LZX 5352 - XR HIP 3V PELV+ AP/LAT RT / PROCEDURE REASON: Pain in right hip * * * * Physician Interpretation * * * * HISTORY: Pain in right hip . TECHNIQUE: XR HIP 3V PELV+ AP/LAT RT Laterality: RIGHT Number of different views (projections): 3 COMPARISON: CT scan of the abdomen and pelvis dated 12/13/2021. RESULT: Right total hip arthroplasty in place with intact hardware. Lucent zones surrounding the proximal tibial component. No acute fracture or dislocation. Degenerative changes at the bilateral sacroiliac and left hip joints and pubic symphysis. No other significant abnormality. - IMPRESSION: Right total hip arthroplasty in place with findings concerning for femoral component loosening. Academic Affairs Vice President: DANA Transcribe Date/Time: Feb 21 2025 11:29A Dictated by : EMELY GREEN MD This examination was interpreted and the report reviewed and electronically signed by: EMELY GREEN MD on Feb 21 2025 11:31AM EST [id number] Normal [facility] XR Pelvis and Hip - right AP and Lateral frogon 02-21-2025 IMPRESSION: Right total hip arthroplasty in place with findings concerning for femoral component loosening. Academic Affairs Vice President: [facility] Transcribe Date/Time: Feb 21 2025 11:29A Dictated by : EMELY GREEN MD This examination was interpreted and the report reviewed and electronically signed by: EMELY GREEN MD on Feb 21 2025 11:31AM EST DIVISION OF RADIOLOGY * * *Final Report* * * DATE OF EXAM: Feb 21 2025 10:48AM LZX 5352 - XR HIP 3V PELV+ AP/LAT RT / PROCEDURE REASON: Pain in right hip * * * * Physician Interpretation * * * * HISTORY: Pain in right hip . TECHNIQUE: XR HIP 3V PELV+ AP/LAT RT Laterality: RIGHT Number of different views (projections): 3 COMPARISON: CT scan of the abdomen and pelvis dated 12/13/2021. RESULT: Right total hip arthroplasty in place with intact hardware. Lucent zones surrounding the proximal tibial component. No acute fracture or dislocation. Degenerative changes at the bilateral sacroiliac and left hip joints and pubic symphysis. No other significant abnormality. - DIVISION OF RADIOLOGY Provider, [facility] - 02/21/2025 * * *Final Report* * * DATE OF EXAM: Feb 21 2025 10:48AM LZX 5352 - XR HIP 3V PELV+ AP/LAT RT / PROCEDURE REASON: Pain in right hip * * * * Physician Interpretation * * * * HISTORY: Pain in right hip . TECHNIQUE: XR HIP 3V PELV+ AP/LAT RT Laterality: RIGHT Number of different views (projections): 3 COMPARISON: CT scan of the abdomen and pelvis dated 12/13/2021. RESULT: Right total hip arthroplasty in place with intact hardware. Lucent zones surrounding the proximal tibial component. No acute fracture or dislocation. Degenerative changes at the bilateral sacroiliac and left hip joints and pubic symphysis. No other significant abnormality. - IMPRESSION IMPRESSION: Right total hip arthroplasty in place with findings concerning for femoral component loosening. Academic Affairs Vice President: DANA Transcribe Date/Time: Feb 21 2025 11:29A Dictated by : EMELY GREEN MD This examination was interpreted and the report reviewed and electronically signed by: EMELY GREEN MD on Feb 21 2025 11:31AM EST [facility] Radiology Study observation (narrative) [facility] XR Pelvis and Hip - right AP and Lateral frogOrdered By: Ccf Provider on 02-21-2025 [facility] XR FOREARM LEFT 2 VIEWSon XR FOREARM LEFT 2 VIEWS Interpreted By: Edward Barros III, STUDY: XR FOREARM LEFT 2 VIEWS; ; 01/17/2025 1:54 pm INDICATION: Signs/Symptoms:pain. ,M79.632 Pain in left forearm COMPARISON: None. ACCESSION NUMBER(S): [id number] ORDERING CLINICIAN: EDWARD BARROS FINDINGS: Three views left forearm: No acute osseous abnormality no fracture or dislocation appreciated. 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 IMPRESSION: No acute osseous abnormality MACRO: None Signed by: Edward Barros III 01/17/2025 2:00 PM Dictation workstation: [id number] [facility] XR Radius and Ulna - left 2 Viewson 01-17-2025 No acute osseous abnormality MACRO: None Signed by: Edward Barros III 01/17/2025 2:00 PM Dictation workstation: [id number] MMODAL Interpreted By: Edward Barros III, STUDY: XR FOREARM LEFT 2 VIEWS; ; 01/17/2025 1:54 pm INDICATION: Signs/Symptoms:pain. ,M79.632 Pain in left forearm COMPARISON: None. ACCESSION NUMBER(S): [id number] ORDERING CLINICIAN: EDWARD BARROS FINDINGS: Three views left forearm: No acute osseous abnormality no fracture or dislocation appreciated. 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 [facility] MMODAL Edward Barros MD - 01/17/2025 Interpreted By: Edward Barros III, STUDY: XR FOREARM LEFT 2 VIEWS; ; 01/17/2025 1:54 pm INDICATION: Signs/Symptoms:pain. ,M79.632 Pain in left forearm COMPARISON: None. ACCESSION NUMBER(S): [id number] ORDERING CLINICIAN: EDWARD BARROS FINDINGS: Three views left forearm: No acute osseous abnormality no fracture or dislocation appreciated. 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 IMPRESSION: No acute osseous abnormality MACRO: None Signed by: Edward Barros III 01/17/2025 2:00 PM Dictation workstation: [id number] [facility] Work Phone: [facility] Work Phone: Radiology Study observation (narrative) [facility] Work Phone: L Inj/Asp: R hip jointon Geneva Veliz MD 01/13/2025 11:43 AM L Inj/Asp: R hip joint on 01/13/2025 11:23 AM Indications: pain Details: 22 G needle, lateral approach Medications: 40 mg triamcinolone acetonide 40 mg/mL; 9 mL lidocaine 10 mg/mL (1 %) [facility] Work Phone: [facility] Work Phone: EMG & nerve conductionon Impression: NEUROLOGY Fabrizio Baires MD - 01/06/2025 IMPRESSION: Impression: [facility] Work Phone: EMG & nerve conductionOrdere d By: Fabrizio Baires on 01-06-2025 [facility] Work Phone: Laboratory - Chemistry and C hemistry - challengeon 01-04-2025 Free T4 [Mass/Vol] 0.82 ng/dL 0.76-1.46 [facility] TSH Qn 0.081 m[IU]/L Low 0.358-3.740 [facility] XR HIP RIGHT WITH PELVIS WHE N PERFORMED 2 OR 3 VIEWSon 12-10-2024 XR HIP RIGHT WITH PELVIS WHEN PERFORMED 2 OR 3 VIEWS Interpreted By: Kobe Garcia, STUDY: XR HIP RIGHT WITH PELVIS WHEN PERFORMED 2 OR 3 VIEWS INDICATION: Signs/Symptoms:PAIN. COMPARISON: None ACCESSION NUMBER(S): [id number] ORDERING CLINICIAN: EDWARD BARROS FINDINGS: Right total hip arthroplasty without fracture, malalignment, or periprosthetic lucency. IMPRESSION: Satisfactory appearance right total hip arthroplasty. Signed by: Kobe Garcia 12/11/2024 4:40 PM Dictation workstation: [id number] [facility] - Chemistry and C hemistry - challengeon 11-01-2024 Free T4 [Mass/Vol] 0.68 ng/dL Low 0.76-1.46 [facility] TSH Qn 0.781 m[IU]/L 0.358-3.740 [facility] XR Hip - right 3 Viewson [...] Impression: Unremarkable right total hip arthroplasty. [facility] Radiology Study observation (narrative) [facility] Laboratory - Chemistry and C hemistry - challengeon 09-15-2024 Free T4 [Mass/Vol] 0.45 ng/dL Low 0.76-1.46 [facility] TSH Qn 0.131 m[IU]/L Low 0.358-3.740 [facility] No Panel Informationon 09-15 Total Triiodothyronine 78 ng/dL 71-180 [facility] Comment on above: Performed at: [facility] [address] [id number] Director: Alex Morse PhD, Phone: [phone] Vaishnavi 08-18-2024 DEBORA Telephone (LetJUVEDonordonut) ISABEL WADDELL ([id number]) 1960 F Date Time Provider Department 08/18/24 [...] Reviewed: 08/05/2024 Reviewed by: Dee Dee Wills, NIKITA - Fully Assessed Reason for Visit: [...] mg by mouth daily at bedtime. - WSYE5-HQR-FGI-FISH OIL-L.CASEI ORAL Take by mouth once daily. [...] Status:Closed by ERNESTO CHACKO on 08/18/24 Normal [facility] HIGH RISK HUMAN PAPILLOMA RADHA (HPV), PCR FOR DETECTION AND GENOTYPINGOrdered By: Geneva Sadler on 08-16-2024 HPV 16 Ag Ql (Unsp spec) Indeterminate Abnormal Not detected [facility] HPV 18 Ag Ql (Unsp spec) Indeterminate Abnormal Not detected [facility] HPV 31+33+35+39+45+51+52+5 6+58+59+66+68 DNA ANGELA+probe Ql (Cvx) Indeterminate Abnormal Not detected [facility] Comment on above: High Risk HPV Other Type includes HPV types 31, 33, 35, 39, 45, 51, 52, 56, 58, 59, 66 and 68. Interpretation and review of laboratory results Abnormal [facility] Indeterminate despit e repeat testing, likely due to suboptimal collection or amplification inhibition. Recommend submitting a new specimen for testing if clinically indicated. This test was developed and its performance characteristics determined by [facility]'s [facility] Medicine [place] ([facility] It has not been cleared or approved by the FDA. [facility] is regulated under CLIA as qualified to perform high-complexity testing. This test is used for clinical purposes. It should not be regarded as investigational or for research. [facility] No Panel InformationOrdered By: Brice Cervantes on 08-16-2024 [facility] Work Phone: PAP TESTOrdered By: Brice mckeon on 08-16-2024 Case Report Gynecologic Cytology Report Case: [id number] Authorizing Provider: Ernesto Chacko APRN.DIRECTOR AMBULATORY Collected: 08/05/2024 01:17 PM Ordering Location: Gynecology Oncology Received: 08/05/2024 07:53 PM First Screen: Silvia Lr CT, ASCP Pathologist: Brice Cervantes MD Specimen: Pap Test, ThinPrep, Vagina [facility] Work Phone: Clinical History Abnormal Bleeding (Describe) Hysterectomy, Total [facility] Work Phone: Gross Description [id number] CfGN7fuGscbRu7zMgrLZDm bpP3cNAcYCrxf1iaJHF5v1 nafnVAQlrvJOIpIN4qHFpu FLTeIA3vCxTiMNEeDpXoZP BhcGVydzEyMjQwXHBhcGVy pQF8EMXqCG9zfzydJJniHA nzZCQftyP9MKMioCSkN2Og BNWfJH9iwqksBYE1UXFUGl giVn7isWGxbEwlQyKgHmOs HFAbINUkGMGjf8iusnPLhk hxaDd2gM9XDHXwB5YfJS7T v5ehSSQcyNIbIHB6XOaop3 llOKhsWEF3NMQqQZEwAQTy PC6SGoLaJYtkQJT1LQx5Ff T0UQd0DHFNYRAnERU2QYD9 IXEhVVj3ZBpySQwzeNFnGX YtLSNqOQQnMApoghS9s9zy HMEtgWAsRXT4ZWvca2xyTJ ctGSI0ECDaEsYbJWGrZD2O ImPiCEawGUT8SRo3XfG2ZW n8FROUNuIzLoCoZZm9ELd1 RLSiLTj5TWu0NVrWVfUzWu x5ZWHzSUccGCP4BHRnHLBk XHQgMiBcXHNzIDMgXFxmbC MhJA3pnWmcONSuBO4KWOBv AYhgNBVsWoAmOJ0yVzKaeN 6xJCg4vjZyIYLqlsELDjeb WGEyXV0NEUVyQCrfHGs3ly HnKXUyAzOlXUEiN79mo8KW e6FuIQ0JOLt6ycRlcnRYCv xmczIwIEdsYWNpYWwgQWNl dGljIEFjaWQgYWRkZWQuXH BhciANClxzYTMwXGVwaWNY r2SwJUKXWdvsnJajTbNinM QjYaD9CXNinOTzTUN3UF7t yKabDEKtM0DwM4WfckO8IQ WalxVKFeyxPASeMP9UWWKa MjIgDQp9 [facility] Work Phone: HPV Reflex Yes HPV [facility] Work Phone: Interpretation Unable to perform interpretation due to unsatisfactory specimen. [facility] Work Phone: Pap Disclaimer k6uopFNnVSDju5ddJHDt bG FuZzEwMzNcZnRuYmpcdWMx NUpuznQaSHnhr3SjV7CrEm AwMFxhbnNpXGRlZmxhbmcx OQMoXRP5mhWzSAOsCIndFS NzZLpnFy9gmOTaqVntZdRi KWCki6sltuOMgletzHg1p9 ybJUShDaR5fGKbEXhhB6am xjThiBUbOESyBRj8iF95CK GmyY7wkHYeSTacqlZhKjR5 IKtxLKAuImU8RPRuoWQxFL GkG9nuWIUsNKuqJOFgDHvk wNFrQTL7zLybk6J1iHSyaM RewVbhRgRuRjYtXwFXy1Fk UWf9aIqvL9WuUBSnDtN3cB QgUGFyYWdyYXBoIEZvbnQ7 wI72IRywgpO4jPIdj6Xcp1 6de256uT6yzGAsGTP9OJCy JAAedDBqRQWkPKZ7LDMlvG MeZ2uzISNjJQ1uxpotUWlj CIqnWVHmbBS7IOZkaZTvV3 WsETJjYPmwFAXgdec3IwXa Zo4vmNRbtSnnJEwli9hqx7 lanVZjIxk4IXKfHxPkMybs TRbca6Hgd7mlLTOfpk8bPE D4cLVqmIfdh9L5hPIuPZXq lWQirmHaDUAfFuH9XWtlKX 9mtb01VWLxNCN5rn5igPWj xYczaoDksSPtXDucL4LdLU Mpw464RYFeO9OjIDTef8W2 gwBgYgHdLYEqcQE5biG7LQ HwKNy6iUQgpxM8ibAsoBTa X7xqyQ2oWHQbRP4lfhdrf8 reBYzrQKigSBPexIN5zwR8 WFSqoRMuM2KyvP5zLAWxNC sjFANtdkx4EtPjSs9kyKDk eTcyMFxzYmtwYWdlXHBnbm NvbnRccGduZGVjXHBsYWlu XHBsYWluXGYwXGZzMjRccW vxcFpibM5yGoMwIzQeZjis QG4vTZYiI5oemXVvJVOkJW GiM8poGzFzmF9tlAqkVKvh hsN0EESbVPWGUSXrH20lNQ ErsZCzJXLkY3UoPE9boqey bXPvmTYnp4ApA8YhhyatHN voA8VbL7YyJwSnNjMyx4Ij ezBvFCEdlpGijkFmiDe0sl BwB9D9kuT2gUMoCLCiwGNz E9VaMW3cxokmiSBpkVRcVR AvzXtgo3j2yJ9bATLwNNQt ZWVkIGZvciByZXNjcmVlbm kaQtLhdUIuAQYzkX5kqqOk ZCBpbnRlcnZhbHMsIGFuZC ScwVrjoXUghLAkc0TdGGit vFvmwc2hqZswxP8tQiUzMw PySrpvTZ0gPRLnO3xpvYOq NICzPXXaO0doRxRlgR9dkA ofXAecggFhMBKvls27 [facility] Work Phone: Performing Lab h1bxzVVoNOHrg5vnVOFw bG FuZzEwMzNcZnRuYmpcdWMx IHtccnRmMVxhbnNpXGRlZm momlaeHMGmSLT7ooRqJNSn LVS4IQI8NhMel9U7FBPqNl XzVWWjAE2mpKojGPTtBA9l OBPbD2qvkR1lsyj5EbKuTJ DxFyY0LZTmkaB6Jfd1OUNu MAfsq6rvr5XkGLWyATk8lY deIqRdPAQdk0woanGqMnIh AGSbIRAeLXYguIFtK147e0 xpk3wvhsFvtVV3RUGyIWW8 SShkxcYwmtA8QZkqqYCtKv P2JFaqclBfDXyaieNostNw Gyc8EGHoT103HJM3zAsnj2 gtEHI8YYWjKWHoLxOqZu2j nRHfB925KAWaSXQWCIHqaD f2IPEemrXtoaKzjGZAa451 U030c2srCQVssnXbtHrLwd mpe5ebH161ATSvuPFqulSh YlNtADHmcMGdqEH9YKKlKA 2qidwsHAasRFowAOVelqD7 EKBrpQQdE7EgTVXjRP4kgm blGLF3QMwwJTUxAFU5IqWz YMDsb5Gtrss8EhQpln8jgb 06NVH9m6AgxSvjKYS7VSU8 DnIsZe6hkSLrWQQuJK6yFr OnoVZlPEVjky26zNwhKYyf ziUcqG7oMkRlRHAyaHVwJB ZbGU6uhBUzMJXojR0xbewx XHBnYnJkcmhlYWRccGdicm NjXr5jfFiwOAP1RStbZ5pp iN3oKxA7AOfzA1zqcI5qCE e3CNfxpQE7HRHbkD7iRT9r xdipw6thTHuzIKgmLBJqgw D5okP2IFCcjCCeQ4NqzO5m XBXoHQ3puyjcs3wkPNF9UV pjRQGkVMO0SaYaDQEee8Fz veq4QePco2FmbQQhLMteW6 3mg877FLXzslIhA9lsxCJo slfanWUzhzoqNZvlkrU0ZB FsXHBsYWluXGYxXGZzMjJc bGFuZzEwMzNcaGljaFxmMV qpLuLhEOSzRQxdE8ioYcSu ZnMyMiBUZWNobmljYWwgY2 7hlS8yJK71CHRlkYEfeIPg zJ6pzU5xxKR7AKIrvaHnsr irTkHwBCKau8MiXUZwSWRf S8wwqtBoTN6hJOUlzB8lMc wgOTUwMCBFdWNsaWQgQXZl APZBfMC5XEcunhShC3huCY QxOTUgICBDTElBIyAzNkQw XdD4HTi7EPIjpj19x7hmsY YxXHNzdGVjZjIyMDAwXGFu u5cpOTVdcRLzLxApWeIsHf GlCgfbaLXeFHMnYkVjm2jc p091eVLqk8zwIELzEkK4rM McEVGlbHSxM236HCXoCXid k2bjs1SzFZHwuRIwu0V7OH WMkwhjyIp9lNduK34xm4W7 EjddV2cmSYNvVKJpA9AnFJ 1eFWLvGss3VCC3BBN9IWSz VKZiD5PiHC0uYKPszHPxOU q0w0kimEbyXCZjNEB2i7wt RYsnluWvWH7niy0zrBh4i4 xjczEgRGVmYXVsdCBQYXJh K7GsmAqeNz0hpCt5xIxcEu usSWH0Vmv5QF6eps01igi6 oJkgVMChpyjnJpT6UPslSN TunskmFPj0SIyqJIWlwTR2 NCLuiXOzL7ZrUBlgWY1sai v6CRC7THgsGWNgVhX3XPSi tEWjTWNpbGyfSRays029EG U3KrSpYM3oW9Rhe8G1iE9k aXRcZGVmdGFiNzIwXGZvcm 6iuTApHDgjq2WgAEM6dvG1 qCYweSMfSRRaCM87Yikzg8 IzXstbb0SyE54foHG3VFxn q4meQT4uBeT9qfVeSDlvq7 yttQ9lRkV2FOthUY6vRQ1f YUPbfO3wawnwETVbEiOqde peGMUtfSwbbtWmNn4gjIac SMU7IVcsP9owbW3hViO9QV mbB8mbvC7kVRy1PTqduDQ1 ZHGynU7vLZ5ehuhuo8grGP sdSXhkKBGdkuN2xrYjXFEl mUHfR4WcaF7cCXMrOL6hio ytc4uiAKT2JDcoHBRvBQE7 HuBuEWVpq2Fmpjh6YuMpm5 TcjGZiOCwuA29kk983WSTj uqHpT3hmwJSujleduDIeaq oyQHagmnE1GRFkSAArFNzr XGYxXGZzMjBcbGFuZzEwMz NcaGljaFxmMVxkYmNoXGYx UNqgU4dhFrAyBpZnHMOYjW Ojud5mpAzvFPeryRNcsUQk xVM7iR1dAJJoemWrey0lJP MmxSBNxCO2RUdxcoZtK5aa nowtUKN4YENxVRE9U3wmLD BBdmUsIENsZXZlbGFuZCBP BPU3XZV8XNZlSRELHHHdKU D8BPC8TVXaGCXcoVZfDFPh clxwYXJkXHBsYWluXGYwXG VvRhGfvFsylC7nXhRkStUh QAnkRX8wMZWfU8jdtJNaOP QcSCVgE3ukMpHnlU9emSzy MVxjZjJcZnMyMFxsdHJjaC PCTUMvwaG0p1Z4YLvzrIXy blxmMVxmczIwXGxhbmcxMD HeLCpgU6buBtIxXCRbyLyu BFdyv1ExYJHgJBPsVpAqWN jpZZB6c6A2TIkjxNJqvoQS FwOWYB8ktSPzmfadKQ6IAb xwbGFpblxmMVxmczIyXGxh isznXDWnIMumH0fpBhMrXH BcxCwpJDnnz7AvLHKhQTRs MjJccGFyfX0= [facility] Work Phone: CNOVSPon 08-05-2024 CNOVSP Visit (SP) Office ([facility]AV[facility]) ISABEL WADDELL ([id number]) 1960 F Date Time Provider Department 08/05/24 11:10 AM HENRY RAMOS During your visit today, we recorded the following information about you: Temperature Pulse Blood pressure Weight 99 degrees 81/minute 141/75 67.1 kg Height 1.676 m Henry Ramos MD 08/16/2024 12:41 PM Signed Gynecologic Oncology [facility] Follow up visit Date of service: [...] differentiation, FIGO grade 2. Neg LVSI, 13% NE pT1a (IA): Tumor limited to endometrium or invades less than 1/2 of the myometrium 05/25/2021 Vaginal biopsy Vagina, biopsy - Consistent with endometrioid adenocarcinoma (see comment). GZ/ka 05/28/2021 COMMENT The tumor cells are diffusely and strongly positive for immunohistochemical stain for Seminary 8, supporting the above diagnosis. The patient [...] SURGERY HX Right 1984 breast cysts COLONOSCOPY 2002 COLONOSCOPY SCREENING 09/2022 [...] by mouth daily at bedtime. Disp: Rfl: [id number]-FISH OIL-L.CASEI ORALTake by mouth once daily.Disp: Rfl: Lactobac no.41/Bifidobact no.7 (PROBIOTIC-10 ORAL)Take by mouth onc (more content not included)... Normal [facility] HIGH RISK HUMAN PAPILLOMA RADHA (HPV), PCR FOR DETECTION AND GENOTYPINGon 08-05-2024 HPV 16 Ag Ql (Unsp spec) Indeterminate Abnormal Not detected [facility] Comment on above: Order Comment: Speci men Type: FLUID SPECIMEN Ordering Facility: [facility] Address: [address] [place] [address] Performed By: #### L [id number], HPVHRT #### [facility] CLIA [id number] [address] [place] [address] [place] HPV 18 Ag Ql (Unsp spec) Indeterminate Abnormal Not detected [facility] Comment on above: Order Comment: Speci men Type: FLUID SPECIMEN Ordering Facility: [facility] Address: [address] [place] [address] Performed By: #### L [id number], HPVHRT #### [facility] CLIA [id number] [address] [place] [address] [place] HPV 31+33+35+39+45+51+52+5 6+58+59+66+68 DNA ANEGLA+probe Ql (Cvx) Indeterminate Abnormal Not detected [facility] Comment on above: Order Comment: Speci men Type: FLUID SPECIMEN Ordering Facility: [facility] Address: [address] [place] [address] Result Comment: High Risk HPV Other Type includes HPV types 31, 33, 35, 39, 45, 51, 52, 56, 58, 59, 66 and 68. Performed By: #### L [id number], HPVHRT #### [facility] CLIA [id number] [address] [place] [address] [place] PAP TESTon 08-05-2024 ADEQUACY Normal [facility] Comment on above: Order Comment: Speci men Type: FLUID SPECIMEN Ordering Facility: [facility] Address: [address] [place] [address] Result Comment: Unsa tisfactory for evaluation. Limited cellularity. Performed By: #### L [id number], HPVHRT #### [facility] CLIA [id number] [address] [place] [address] [place] CASE REPORT Normal [facility] Comment on above: Order Comment: Speci men Type: FLUID SPECIMEN Ordering Facility: [facility] Address: [address] [place] [address] Result Comment: Gyne cologic Cytology Report Case: [id number] Authorizing Provider: Ernesto Chacko APRN.DIRECTOR AMBULATORY Collected: 08/05/2024 01:17 PM Ordering Location: Gynecology Oncology Received: 08/05/2024 07:53 PM First Screen: Silvia Lr, CT, ASCP Pathologist: Brice Cervantes MD Specimen: Pap Test, ThinPrep, Vagina Performed By: #### L [id number], HPVHRT #### [facility] CLIA [id number] [address] [place] [address] [place] CLINICAL HISTORY, CYTOLOGY, VICE CHAIR Normal [facility] Comment on above: Order Comment: Speci men Type: FLUID SPECIMEN Ordering Facility: [facility] Address: [address] [place] [address] Result Comment: Abno rmal Bleeding (Describe) Hysterectomy, Total Performed By: #### L [id number], HPVHRT #### [facility] CLIA [id number] [address] [place] [address] [place] FINAL PERFORMING LAB Normal [facility] Comment on above: Order Comment: Speci men Type: FLUID SPECIMEN Ordering Facility: [facility] Address: [address] [place] [address] Result Comment: Tech nical component, drum reel cutter screening performed at [facility], [address] [place] [address] [place] [address] CLIA# [id number] Diagnostic interpretation performed at [facility], [address] [place], [place] [id number] CLIA# [id number] [employer] Systems Serviceperson: Anant Dumont M.D. Performed By: #### L [id number], HPVHRT #### [facility] CLIA [id number] [address] [place] [address] [place] GROSS DESCRIPTION A. Vagina Normal [facility] Comment on above: Order Comment: Speci men Type: FLUID SPECIMEN Ordering Facility: [facility] Address: [address] [place] [address] Result Comment: Glac ial Acetic Acid added. Performed By: #### L [id number], HPVHRT #### [facility] CLIA [id number] [address] [place] [address] [place] HPV REFLEX Yes HPV Normal [facility] Comment on above: Order Comment: Speci men Type: FLUID SPECIMEN Ordering Facility: [facility] Address: [address] [place] [address] Performed By: #### L [id number], HPVHRT #### [facility] CLIA [id number] [address] [place] [address] [place] INTERPRETATION, CYTOLOGY, VICE CHAIR Normal [facility] Comment on above: Order Comment: Speci men Type: FLUID SPECIMEN Ordering Facility: [facility] Address: [address] [place] [address] Result Comment: Unab le to perform interpretation due to unsatisfactory specimen. Performed By: #### L [id number], HPVHRT #### [facility] CLIA [id number] [address] [place], [place] [id number] [place] PAP DISCLAIMER COMMENT The Pap Smear is a screening test for cervical cancer. False negative results occur with all screening tests, emphasizing the need for rescreening at recommended intervals, and clinical correlation. Normal [facility] Comment on above: Order Comment: Speci men Type: FLUID SPECIMEN Ordering Facility: [facility] Address: [address] [place] [address] Performed By: #### L [id number], HPVHRT #### [facility] CLIA [id number] [address] [place] [address] [place] Laboratory - Chemistry and C hemistry - challengeon 06-25-2024 Free T4 [Mass/Vol] 1.58 ng/dL High 0.76-1.46 [facility] No Panel Informationon 06-25 Thyroid Stimulating Hormone 3rd Gen <0.007 u[iU]/mL Low 0.358-3.740 [facility] Total Triiodothyronine 199 ng/dL Abnormal 71-180 [facility] Comment on above: Performed at: [address] [id number] Director: Alex Morse PhD, Phone: [phone] Laboratory - Chemistry and C hemistry - challengeon 05-19-2024 Free T4 [Mass/Vol] 2.49 ng/dL High 0.76-1.46 [facility] No Panel Informationon 05-19 Thyroid Stimulating Hormone 3rd Gen <0.007 u[iU]/mL Low 0.358-3.740 [facility] Total Triiodothyronine 271 ng/dL Abnormal 71-180 [facility] Comment on above: Performed at: - L [employer] [id number] [place], [place] [id number] Director: Alex Morse PhD, Phone: [phone] Thyroid stimulating immunogl obulin (TSI) measurementon 05-19-2024 Thyroid stimulating immunoglobulins actual/normal (S) [Relative mass conc] 3.57 IU/L Abnormal 0.00-0.55 [facility] Comment on above: Performed at: - L [employer] [id number] [place], [place] [id number] Director: Betty Montiel MD, Phone: [phone] No Panel InformationOrdered By: Dee Dee Espana on 05-04-2024 Quick Strep (POC) [facility] Basophils Auto (Bld) [#/Vol] on 05-03-2024 Basophils (Bld) [#/Vol] 0.0 10 3/uL 0.0-0.1 [facility] Basophils/100 WBC Auto (Bld) on 05-03-2024 Basophils/100 WBC (Bld) 0.2 % 0.2-2.0 [facility] Eosinophils/100 WBC Auto (Bl d)on 05-03-2024 Eosinophils/100 WBC (Bld) 5.4 % 0.9-7.0 [facility] Erythrocyte distribution wid th Auto (RBC) [Ratio]on 05-03-2024 Erythrocyte distribution width (RBC) [Ratio] 12.7 % 11.0-15.0 [facility] Hematocrit Auto (Bld) [Volum e fraction]on 05-03-2024 Hematocrit (Bld) [Volume fraction] 40.6 % 36.0-48.0 [facility] Hemoglobin [Mass/volume] in Bloodon 05-03-2024 Hemoglobin (Bld) [Mass/Vol] 13.1 g/dL 12.0-16.0 [facility] Iron binding capacity [Mass/ volume] in Serum or Plasmaon 05-03-2024 Iron binding capacity [Mass/Vol] 279.0 ug/dL 250.0-450.0 [facility] Iron saturation [Mass Fracti on] in Serum or Plasmaon 05-03-2024 Iron saturation [Mass fraction] 14.0 % [facility] Laboratory - Chemistry and C hemistry - challengeon 05-03-2024 Ferritin [Mass/Vol] 128.0 ng/mL 8.0-252.0 [facility] Free T4 [Mass/Vol] 2.46 ng/dL High 0.76-1.46 [facility] Iron [Mass/Vol] 39.0 ug/dL Low 50.0-170.0 [facility] Laboratory - Hematology and Cell countson 05-03-2024 Immature granulocytes/100 WBC (Bld) 0.2 % 0.0-0.5 [facility] Leukocytes [#/volume] correc katherine for nucleated erythrocytes in Blood by Automated counon 05-03-2024 WBC corrected for nucl RBC Auto (Bld) [#/Vol] 4.3 10 3/uL 4.0-11.0 [facility] Lymphocytes Auto (Bld) [#/Vo l]on 05-03-2024 Lymphocytes (Bld) [#/Vol] 1.3 10 3/uL 1.2-3.8 [facility] Lymphocytes/100 WBC Auto (Bl d)on 05-03-2024 Lymphocytes/100 WBC (Bld) 29.7 % 20.5-60.0 [facility] MCH Auto (RBC) [Entitic mass ]on 05-03-2024 MCH (RBC) [Entitic mass] 29.2 pg 26.7-34.0 [facility] MCHC Auto (RBC) [Mass/Vol]on 05-03-2024 MCHC (RBC) [Mass/Vol] 32.3 g/dL 29.9-35.2 [facility] MCV Auto (RBC) [Entitic vol] on 05-03-2024 MCV (RBC) [Entitic vol] 90.4 fL 81.0-99.0 [facility] Monocytes Auto (Bld) [#/Vol] on 05-03-2024 Monocytes (Bld) [#/Vol] 0.5 10 3/uL 0.3-0.8 [facility] Monocytes/100 WBC Auto (Bld) on 05-03-2024 Monocytes/100 WBC (Bld) 11.0 % 1.7-12.0 [facility] Neutrophils Auto (Bld) [#/Vo l]on 05-03-2024 Neutrophils (Bld) [#/Vol] 2.3 10 3/uL 1.4-6.5 [facility] Neutrophils/100 WBC Auto (Bl d)on 05-03-2024 Neutrophils/100 WBC (Bld) 53.5 % 43.0-75.0 [facility] No Panel Informationon 05-03 Eosinophils # (Auto) 0.2 10 3/uL 0.0-0.7 [facility] Immature Granulocyte # (Auto) 0.01 10 3/uL 0.00-0.03 [facility] Thyroid Stimulating Hormone 3rd Gen <0.007 u[iU]/mL Low 0.358-3.740 [facility] Platelet mean volume Auto (B ld) [Entitic vol]on 05-03-2024 Platelet mean volume (Bld) [Entitic vol] 9.6 fL 9.5-13.5 [facility] Platelets Auto (Bld) [#/Vol] on 05-03-2024 Platelets (Bld) [#/Vol] 192 10 3/uL 150-450 [facility] RBC Auto (Bld) [#/Vol]on RBC (Bld) [#/Vol] 4.49 10 6/uL 4.20-5.40 [facility] TYPE + SCREENon 08-29-2023 ABO group Nom (Bld) O [facility] [place] [facility] Blood group antibody screen Ql Negative [facility] HIstorical Ab Scr Status Negative [facility] Rh Nom (Bld) Positive [facility] Type and Screen Expiration 09/01/2023 23:59 [facility] XR CHEST 2V FRONTAL/LATon [facility] CT CHEST WO IVCONon 08-22-20 23 [...] wall is unremarkable. Upper abdomen: Prior cholecystectomy. Manufacturing Analyst (topogram) images: No additional findings. IMPRESSION: 1. No convincing findings of interstitial lung disease. There is excessive dynamic collapse of mainstem bronchi. 2. Unchanged scattered calcified granulomas. No suspicious lung nodules. Academic Affairs Vice President: DANA Transcribe Date/Time: Aug 22 2023 8:56A Dictated by : RICHARD LOVELACE MD This examination was interpreted and the report reviewed and electronically signed by: RICHARD LOVELACE MD on Aug 22 2023 9:01AM EST [id number] Normal [facility] Comprehensive metabolic 2000 panelon 07-05-2023 Albumin [Mass/Vol] 4.0 g/dL 3.9 - 4.9 g/dL [facility] ALP [Catalytic activity/Vol] 161 U/L High 34 - 123 U/L [facility] ALT [Catalytic activity/Vol] 47 U/L High 7 - 38 U/L [facility] Anion gap [Moles/Vol] 11 mmol/L 9 - 18 mmol/L [facility] AST [Catalytic activity/Vol] 41 U/L High 13 - 35 U/L [facility] Bilirubin [Mass/Vol] 0.3 mg/dL 0.2 - 1 .3 mg/dL [facility] Calcium [Mass/Vol] 9.5 mg/dL 8.5 - 10. 2 mg/dL [facility] Chloride [Moles/Vol] 105 mmol/L 97 - 10 5 mmol/L [facility] CO2 [Moles/Vol] 26 mmol/L 22 - 30 mmol/L [facility] Creatinine [Mass/Vol] 0.74 mg/dL 0.58 - 0.96 mg/dL [facility] Estimated Glomerular Filtration Rate 91 mL/min/1.73m >=60 mL/min/1.73m [facility] Glucose [Mass/Vol] 104 mg/dL High 74 - 99 mg/dL [facility] Potassium [Moles/Vol] 4.5 mmol/L 3.7 - 5.1 mmol/L [facility] Protein [Mass/Vol] 6.3 g/dL 6.3 - 8.0 g/dL [facility] Sodium [Moles/Vol] 142 mmol/L 136 - 144 mmol/L [facility] Urea nitrogen [Mass/Vol] 16 mg/dL 7 - 21 mg/dL [facility] CBC W Auto Differential pane l (Bld)on 07-04-2023 Basophils (Bld) [#/Vol] 0.03 10*3/uL <0.11 k/uL [facility] Basophils/100 WBC (Bld) 0.9 % [facility] Differential cell count method Nom (Bld) Auto [facility] Eosinophils (Bld) [#/Vol] 0.16 10*3/uL <0.46 k/uL [facility] Eosinophils/100 WBC (Bld) 4.9 % [facility] Erythrocyte distribution width (RBC) [Ratio] 19.9 % High 11.5 - 15.0 % [facility] Hematocrit (Bld) [Volume fraction] 25.1 % Low 36.0 - 46.0 % [facility] Hemoglobin (Bld) [Mass/Vol] 7.1 g/dL Low 11.5 - 15.5 g/dL [facility] Immature granulocytes (Bld) [#/Vol] <0.10 k/uL [facility] Immature granulocytes/100 WBC (Bld) 0.3 % [facility] Lymphocytes (Bld) [#/Vol] 1.12 10*3/uL 1.00 - 4.00 k/uL [facility] Lymphocytes/100 WBC (Bld) 34.6 % [facility] MCH (RBC) [Entitic mass] 19.2 pg Low 26.0 - 34.0 pg [facility] MCHC (RBC) [Mass/Vol] 28.3 g/dL Low 30.5 - 36.0 g/dL [facility] MCV (RBC) [Entitic vol] 67.8 fL Low 80.0 - 100.0 fL [facility] Monocytes (Bld) [#/Vol] 0.49 10*3/uL <0.87 k/uL [facility] Monocytes/100 WBC (Bld) 15.1 % [facility] Neutrophils (Bld) [#/Vol] 1.43 10*3/uL Low 1.45 - 7.50 k/uL [facility] Neutrophils/100 WBC (Bld) 44.2 % [facility] Nucleated RBC (Bld) [#/Vol] <0.01 k/uL [facility] Nucleated RBC/100 WBC (Bld) [Ratio] 0.0 /100 WBC [facility] Platelet mean volume (Bld) [Entitic vol] 9.8 fL 9.0 - 12.7 fL [facility] Platelets (Bld) [#/Vol] 304 10*3/uL 150 - 400 k/uL [facility] RBC (Bld) [#/Vol] 3.70 10*6/uL Low 3.90 - 5.2 0 m/uL [facility] WBC (Bld) [#/Vol] 3.24 10*3/uL Low 3.70 - 11. 00 k/uL [facility] HEMOGLOBINon 03-21-2023 Hemoglobin (Bld) [Mass/Vol] 9.1 g/dL Critically low 12.0-16.0 [facility] Comment on above: Performed By: #### H GB ####[facility] [address] [place], [place] [address]BuStephan Monzon XR CHEST 2 Von 03-10-2023 XR [...] HENRY LOCK Date: 2023-03-10 13:57 Normal [facility] Covid-19 PCR (CVDTB)on SARS-CoV-2 (COVID-19) RNA ANGELA+probe Ql (Unsp spec) Not detected Normal NOT DETECTED [facility] Comment on above: Result Comment: When [...] for this test is supported by the [employer] Superintendent of Health and Human Service's declaration that [...] used). Performed By: #### C VDTBH #### [facility] [address] [place] [address] Dr. Cheryl Monzon INFLUENZA A AND B AGon 01-20 INFLUANEGH SEE BELOW Normal [facility] Comment on above: Result Comment: Nega tive for Flu A protein angiten. Infection due to Flu A cannot be ruled out. Flu A angiten in the sample may be below the detection limit of the test. Performed By: #### I NFLUAB #### [facility] [address] [place] [address] Dr. Cheryl Monzon [facility] SEE BELOW Normal [facility] Comment on above: Result Comment: Nega tive for Flu B protein antigen. Infection due to Flu B cannot be ruled out. Flu B antigen in the sample may be below the detection limit of the test. Performed By: #### I NFLUAB #### [facility] [address] [place] [address] Dr. Cheryl Monzon INFLUENZA A AG Negative Normal NEGATIVE SEE COMMENT [facility] Comment on above: Performed By: #### I NFLUAB #### [facility] [address] [address] [address] Cheryl Monzon INFLUENZA B AG Negative Normal NEGATIVE SEE COMMENT [facility] [place] [facility] Comment on above: Performed By: #### I NFLUAB #### [facility] [address] [place] [address] Dr. Cheryl Monzon FERRITIN BLDon 01-04-2023 Ferritin [Mass/Vol] 14.2 ng/mL Low 14.7 - 2 05.1 ng/mL [facility] Iron and Iron binding capaci ty panelon 01-04-2023 Iron [Mass/Vol] 77 ug/dL 41 - 186 ug/dL [facility] Iron binding capacity [Mass/Vol] 382 ug/dL 232 - 386 ug/dL [facility] Iron/TIBC [Molar ratio] 20.2 % 15.0 - 57.0 % [facility] CBC W Auto Differential pane l (Bld)on 01-03-2023 Basophils (Bld) [#/Vol] <0.11 k/uL [facility] Basophils/100 WBC (Bld) 0.4 % [facility] Differential cell count method Nom (Bld) Auto [facility] Eosinophils (Bld) [#/Vol] 0.14 10*3/uL <0.46 k/uL [facility] Eosinophils/100 WBC (Bld) 3.1 % [facility] Erythrocyte distribution width (RBC) [Ratio] 13.0 % 11.5 - 15.0 % [facility] Hematocrit (Bld) [Volume fraction] 35.4 % Low 36.0 - 46.0 % [facility] Hemoglobin (Bld) [Mass/Vol] 11.5 g/dL 11.5 - 15.5 g/dL [facility] Immature granulocytes (Bld) [#/Vol] <0.10 k/uL [facility] Immature granulocytes/100 WBC (Bld) 0.2 % [facility] Lymphocytes (Bld) [#/Vol] 1.31 10*3/uL 1.00 - 4.00 k/uL [facility] Lymphocytes/100 WBC (Bld) 29.0 % [facility] MCH (RBC) [Entitic mass] 30.0 pg 26.0 - 34.0 pg [facility] MCHC (RBC) [Mass/Vol] 32.5 g/dL 30.5 - 36.0 g/dL [facility] MCV (RBC) [Entitic vol] 92.4 fL 80.0 - 100.0 fL [facility] Monocytes (Bld) [#/Vol] 0.50 10*3/uL <0.87 k/uL [facility] Monocytes/100 WBC (Bld) 11.1 % [facility] Neutrophils (Bld) [#/Vol] 2.53 10*3/uL 1.45 - 7.50 k/uL [facility] Neutrophils/100 WBC (Bld) 56.2 % [facility] Nucleated RBC (Bld) [#/Vol] <0.01 k/uL [facility] Nucleated RBC/100 WBC (Bld) [Ratio] 0.0 /100 WBC [facility] Platelet mean volume (Bld) [Entitic vol] 9.9 fL 9.0 - 12.7 fL [facility] Platelets (Bld) [#/Vol] 235 10*3/uL 150 - 400 k/uL [facility] RBC (Bld) [#/Vol] 3.83 10*6/uL Low 3.90 - 5.2 0 m/uL [facility] WBC (Bld) [#/Vol] 4.51 10*3/uL 3.70 - 11. 00 k/uL [facility] Covid-19 PCR ([facility])on SARS-CoV-2 (COVID-19) RNA ANGELA+probe Ql (Unsp spec) Not detected Normal NOT DETECTED [facility] Comment on above: Result Comment: When [...] for this test is supported by the [employer] Superintendent of Health and Human Service's declaration that [...] used). Performed By: #### C VDTB #### [facility] [address] [place] [address] Dr. Cheryl Monzon INFLUENZA A AND B [facility] 11-19 [facility] SEE BELOW Normal [facility] [place] [facility] Comment on above: Result Comment: Nega tive for Flu A protein angiten. Infection due to Flu A cannot be ruled out. Flu A angiten in the sample may be below the detection limit of the test. Performed By: #### I NFLUAB #### [facility] [address] [place] [address] Dr. Cheryl Monzon [facility] SEE BELOW Normal [facility] [place] [facility] Comment on above: Result Comment: Nega tive for Flu B protein antigen. Infection due to Flu B cannot be ruled out. Flu B antigen in the sample may be below the detection limit of the test. Performed By: #### I NFLUAB #### [facility] [address] [place] [address] Dr. Cheryl Monzon INFLUENZA A AG Negative Normal NEGATIVE SEE COMMENT [facility] [place] [facility] Comment on above: Performed By: #### I NFLUAB #### [facility] [address] [place] [address] Dr. Cheryl Monzon INFLUENZA B AG Negative Normal NEGATIVE SEE COMMENT [facility] [place] [facility] Comment on above: Performed By: #### I NFLUAB #### [facility] [address] [place] [address] Dr. Cheryl Monzon MG MAMM SCREEN 3D RAGHU CADon 10-04-2022 MG MAMM SCREEN 3D RAGHU CAD Patient: ISABEL WADDELL Exam Date: 10/04/2022 : 1960 Gender:F Ordering : DR ROLAND SERRANO D.O. Admission #: [id number] Family : Order #: [id number] CLICK HERE TO VIEW EXAM RADIOLOGY REPORT [...] Treatments radiation-hysterectomy Family Cancers None LOCATION: [facility] BREAST COMPOSITION: Scattered areas fibroglandular density. [...] MD on 10/04/2022 at 13:53 Normal [facility] COLONOSCOPY (THERAPEUTIC)on 09-26-2022 [facility] T3, TOTAL (TRIIODOTHYRONINE) on 09-05-2022 T3, TOTAL 132 ng/dL Normal 71-180 [facility] [place] [facility] Comment on above: Performed By: #### T 3TOTAL ####[facility] [address] [place] [address]DrStephan Monzon CBC AUTO DIFFon 09-04-2022 BASO # 0.0 103/ul Normal 0.0-0.1 [facility] [place] [facility] Comment on above: Performed By: #### C BC ####[facility] [address] [place] [address]DrStephan Monzon Basophils/100 WBC (Bld) 0.4 % Normal 0.2-2.0 [facility] [place] [facility] Comment on above: Performed By: #### C BC ####[facility] [address] [address]Dr. Cheryl Monzon EO # 0.1 103/ul Normal 0.0-0.7 [facility] Comment on above: Performed By: #### C BC ####[facility] [address] [place] [address]Dr. Cheryl Monzon Eosinophils/100 WBC (Bld) 4.9 % Normal 0.9-7.0 [facility] Comment on above: Performed By: #### C BC ####[facility] [address] [place] [address]Dr. Cheryl Monzon Erythrocyte distribution width (RBC) [Ratio] 12.8 % Normal 11.0-15.0 [facility] Comment on above: Performed By: #### C BC ####[facility] [address] [place], [place] [address]Dr. Cheryl Monzon Hematocrit (Bld) [Volume fraction] 36.7 % Normal 36.0-48.0 [facility] [facility] Comment on above: Performed By: #### C BC ####[facility] Bscnu[address] [place], [place] [address]Dr. Cheryl Monzon Hemoglobin (Bld) [Mass/Vol] 11.8 g/dL Critically low 12.0-16.0 [facility] Comment on above: Performed By: #### C BC ####[facility] [address] [place], [place] [address]Dr. Cheryl Monzon IG # 0.01 10e3/ul Normal 0.00-0.03 [facility] Comment on above: Performed By: #### C BC ####[facility] [address] [place], [place] [address]Dr. Cheryl Monzon IG % 0.4 % Normal 0.0-0.5 [facility] Comment on above: Performed By: #### C BC ####[facility] V[address] [place], [place] [address]Dr. Cheryl Monzon LYMPH # 0.8 103/ul Critically low 1.2-3.8 [facility] Comment on above: Performed By: #### C BC ####[facility] Xfqu[address] [place], [place] [id number]. Cheryl Monzon Lymphocytes/100 WBC (Bld) 28.6 % Normal 20.5-60.0 [facility] Comment on above: Performed By: #### C BC ####[facility] [address] [place] [address]Dr. Cheryl Monzon MANUAL DIFF REQ NO Normal [facility] Comment on above: Performed By: #### C BC ####[facility] [address] [place] [address]Dr. Cheryl Monzon MCH (RBC) [Entitic mass] 30.7 pg Normal 26.7-34.0 [facility] Comment on above: Performed By: #### C BC ####[facility] [address] [place], [place] [address]Dr. Cheryl Monzon MCHC (RBC) [Mass/Vol] 32.2 g/dL Normal 29.9-35.2 [facility] Comment on above: Performed By: #### C BC ####[facility] Dvsngymxf[address] [place], [place] [address]Dr. Cheryl Monzon MCV (RBC) [Entitic vol] 95.6 fL Normal 81.0-99.0 [facility] Comment on above: Performed By: #### C BC ####[facility] [address] [place], [place] [address]Dr. Cheryl Monzon MONO # 0.3 103/ul Normal 0.3-0.8 [facility] Comment on above: Performed By: #### C BC ####[facility] [address] [place], [place] [address]Dr. Cheryl Monzon Monocytes/100 WBC (Bld) 11.7 % Normal 1.7-12.0 [facility] Comment on above: Performed By: #### C BC ####[facility] [address] [place], [place] [address]Dr. Cheryl Monzon NEUT # 1.4 103/ul Normal 1.4-6.5 [facility] Comment on above: Performed By: #### C BC ####[facility] [address] [place], [place] [address]Dr. Lissettalden Monzon Neutrophils/100 WBC (Bld) 54.0 % Normal 43.0-75.0 [facility] [place] [facility] Comment on above: Performed By: #### C BC ####[facility] [address] [place] [address]Dr. Cheryl Monzon Platelet mean volume (Bld) [Entitic vol] 9.2 fL Critically low 9.5-13.5 [facility] Comment on above: Performed By: #### C BC ####[facility] [address] [place] [address]Dr. Cheryl Monzon PLT 217 103/ul Normal 150-450 [facility] Comment on above: Performed By: #### C BC ####[facility] [address] [place] [address]Dr. Cheryl Monzon RBC 3.84 106/ul Critically low 4.20-5.40 [facility] Comment on above: Performed By: #### C BC ####[facility] [address] [place] [address]Dr. Cheryl Monzon WBC 2.7 103/ul Critically low 4.0-11.0 [facility] Comment on above: Performed By: #### C BC ####[facility] [address] [place] [address]DrStephan Monzon FREE T4on 09-04-2022 Free T4 [Mass/Vol] 0.83 ng/dL Normal 0.76-1.46 [facility] Comment on above: Performed By: #### F T4 #### [facility] [address] [address] [address] Cheryl Monzon GLYCOHEMOGLOBIN A1Con 2021 ADA RECOMMENDATION SEE BELOW Normal [facility] Comment on above: Result Comment: ADA RECOMMENDED LIMIT 4.0 - 6.0 ADA THERAPEUTIC TARGET < 7.0 ACTION SUGGESTED > 7.0 Performed By: #### A 1C #### [facility] [address] [address] [address] Cheryl Monzon Glucose [Mass/Vol] 111 mg/dL Normal [facility] Comment on above: Performed By: #### A 1C #### [facility] [address] [place], [place] [address] Dr. Cheryl Monzon HbA1c (Bld) [Mass fraction] 5.5 % Normal 4.5-6.2 [facility] [place] [facility] Comment on above: Performed By: #### A 1C #### [facility] [address] [address] [address] Cheryl Monzon LIPID PROFILEon 09-04-2022 CHOL-HDL RATIO NORM SEE BELOW Normal [facility] Comment on above: Result Comment: 3.3 - 4.4 LOW RISK 4.4 - 7.1 AVERAGE RISK 7.1 - 11.0 MODERATE RISK >11.0 HIGH RISK Performed By: #### T SH, LIPID, CMP ####[facility] [address] [place] [address]Dr. Cheryl Monzon Cholesterol [Mass/Vol] 201 mg/dL Critically high <=200 [facility] [place] [facility] Comment on above: Performed By: #### T SH, LIPID, CMP ####[facility] [address] [place] [address]Dr. Cheryl Monzon Cholesterol in HDL [Mass/Vol] 78 mg/dL Critically high 40-60 [facility] [place] [facility] Comment on above: Performed By: #### T SH, LIPID, CMP ####[facility] [address] [place] [id number]. Cheryl Monzon Cholesterol in LDL [Mass/Vol] 112.8 mg/dL Normal [facility] [place] [facility] Comment on above: Performed By: #### T SH, LIPID, CMP ####[facility] [address] [place] [address]Dr. Cheryl Monzon Cholesterol.total/Chol esterol in HDL [Mass ratio] 2.6 {ratio} Normal [facility] [place] [facility] Comment on above: Performed By: #### T SH, LIPID, CMP ####[facility] [address] [place] [address]Dr. Cheryl Monzon HDL NORMAL > or = 60 mg/dl - LO W CARDIOVASCULAR RISK <40 mg/dl - HIGH CARDIOVASCULAR RISK Normal [facility] [place] [facility] Comment on above: Performed By: #### T SH, LIPID, CMP ####[facility] [address] [place], [place] [address]Yh. Cheryl Monzon LDL CALC NORMAL SEE BELOW Normal [facility] Comment on above: Result Comment: <100 mg/dl OPTIMAL 100 - 129 mg/dl NEAR OR ABOVE OPTIMAL 130 - 159 mg/dl BORDERLINE HIGH 160 - 189 mg/dl HIGH >190 mg/dl VERY HIGH Performed By: #### T PUSHPA, LIPID, CMP ####[facility] [address] [place] [id number] Monzon Triglyceride [Mass/Vol] 51 mg/dL Normal <=150 [facility] Comment on above: Performed By: #### T PUSHPA, LIPID, CMP ####[facility] [address] [place] [address]DrStephan Monzon VLDL CALC 10.2 mg/dL Normal [facility] Comment on above: Performed By: #### T PUSHPA, LIPID, CMP ####[facility] [address] [place] [address]Dr. Cheryl Monzon PROF 14(COMP METB)on 09-04- 022 Albumin [Mass/Vol] 3.3 g/dL Critically low 3.4-5.0 [facility] Comment on above: Performed By: #### T PUSHPA LIPID, CMP #### [facility] [address] [address] [address] Cheryl Monzon Albumin/Globulin [Mass ratio] 1.0 {ratio} Normal [facility] [place] [facility] Comment on above: Performed By: #### T PUSHPA, LIPID, CMP #### [facility] [address] [address] [address] Cheryl Monzon ALP [Catalytic activity/Vol] 94 U/L Normal 46-116 [facility] Comment on above: Performed By: #### T PUSHPA, LIPID, CMP #### [facility] [address] [address] [address] Cheryl Monzon ALT [Catalytic activity/Vol] 53 U/L Normal 14-59 [facility] [place] [facility] Comment on above: Performed By: #### T PUSHPA, LIPID, CMP #### [facility] [address] [address] [address] Cheryl Monzon Anion gap [Moles/Vol] 8.8 mmol/L Normal [facility] [place] [facility] Comment on above: Performed By: #### T SH, LIPID, CMP #### [facility] [address] [address] [address] Cheryl Monzon AST [Catalytic activity/Vol] 42 U/L Critically high 15-37 [facility] [place] [facility] Comment on above: Performed By: #### T PUSHPA, LIPID, CMP #### [facility] [address] [place] [address] Dr. Cheryl Monzon Bilirubin [Mass/Vol] 0.3 mg/dL Normal 0.2-1.0 [facility] [place] [facility] Comment on above: Performed By: #### T PUSHPA, LIPID, CMP #### [facility] [address] [place] [address] Dr. Cheryl Monzon Calcium [Mass/Vol] 8.8 mg/dL Normal 8.5-10.1 [facility] Comment on above: Performed By: #### T PUSHPA, LIPID, CMP #### [facility] [address] [place] [address] Dr. Cheryl Monzon Chloride [Moles/Vol] 106 mmol/L Normal 98-107 [facility] Comment on above: Performed By: #### T PUSHPA, LIPID, CMP #### [facility] [address] [place] [address] Dr. Cheryl Monzon CO2 [Moles/Vol] 30.7 mmol/L Normal 21.0-32.0 [facility] Comment on above: Performed By: #### T SH, LIPID, CMP #### [facility] [address] [place] [address] Dr. Cheryl Monzon Creatinine [Mass/Vol] 0.66 mg/dL Normal 0.55-1.02 [facility] [place] [facility] Comment on above: Performed By: #### T SH, LIPID, CMP #### [facility] [address] [place] [address] Dr. Cheryl Monzon EGFR-AF CROATIAN >60 Normal >=60 [facility] Comment on above: Performed By: #### T SH, LIPID, CMP #### [facility] [address] [address] [address] Cheryl Monzon EGFR-NON AF CROATIAN >60 Normal >=60 [facility] [place] [facility] Comment on above: Performed By: #### T SH, LIPID, CMP #### [facility] [address] [address] [address] Cheryl Monzon Globulin (S) [Mass/Vol] 3.4 g/dL Normal [facility] [place] [facility] Comment on above: Performed By: #### T SH, LIPID, CMP #### [facility] [address] [place] [address] Dr. Cheryl Monzon Glucose [Mass/Vol] 115 mg/dL Critically high 74-106 [facility] Comment on above: Performed By: #### T SH, LIPID, CMP #### [facility] [address] [place] [address] Dr. Cheryl Monzon Potassium [Moles/Vol] 4.5 mmol/L Normal 3.5-5.1 [facility] [place] [facility] Comment on above: Performed By: #### T SH, LIPID, CMP #### [facility] [address] [place] [address] Dr. Cheryl Monzon Protein [Mass/Vol] 6.7 g/dL Normal 6.4-8.2 [facility] Comment on above: Performed By: #### T SH, LIPID, CMP #### [facility] [address] [place] [address] Dr. Cheryl Monzon Sodium [Moles/Vol] 141 mmol/L Normal 136-145 [facility] Comment on above: Performed By: #### T SH, LIPID, CMP #### [facility] [address] [place] [address] Dr. Cheryl Monzon Urea nitrogen [Mass/Vol] 16.0 mg/dL Normal 7.0-18.0 [facility] [place] [facility] Comment on above: Performed By: #### T SH, LIPID, CMP #### [facility] [address] [place] [address] Dr. Cheryl Monzon Urea nitrogen/Creatinine [Mass ratio] 24.2 mg/mg Normal [facility] [place] [facility] Comment on above: Performed By: #### T SH, LIPID, CMP #### [facility] [address] [place], [place] [address] Dr. Cheryl Monzon TSHon 09-04-2022 TSH 0.009 uIU/mL Critically low 0.358-3.740 [facility] Comment on above: Performed By: #### T SH, LIPID, CMP #### [facility] [address] [place], [place] [address] Dr. Cheryl Monzon Covid-19 PCR (CVDTB)on 05-18 SARS-CoV-2 (COVID-19) RNA ANGELA+probe Ql (Unsp spec) Not detected Normal NOT DETECTED [facility] Comment on above: Result Comment: When [...] for this test is supported by the [place] of [employer] and Human Service's declaration that [...] used). Performed By: #### C VDTBH #### [facility] [address] [place], [place] [address] [address] Abdomen and Pelvis [...] any questions regarding this interpretation, please call [phone]. If you are unable to reach us at the number above, please feel free to contact [facility] at [phone]. DIVISION OF RADIOLOGY * * *Final Report* * * DATE OF EXAM: Dec 13 2021 9:56AM [facility] 0530 - CT ABD/PEL W IVCON [...] performed concurrently and will be dictated separately. Manufacturing Analyst (topogram) images: No additional findings. DIVISION OF RADIOLOGY Provider, [facility] - 12/13/2021 * * *Final Report* * * DATE OF EXAM: Dec 13 2021 9:56AM [facility] 0530 - CT ABD/PEL W IVCON [...] performed concurrently and will be dictated separately. Manufacturing Analyst (topogram) images: No additional findings. IMPRESSION IMPRESSION: [...] any questions regarding this interpretation, please call [phone]. If you are unable to reach us at the number above, please feel free to contact [facility] at [phone]. [facility] CT Abdomen and Pelvis W cont rast IVOrdered By: [facility] Provider on 12-13-2021 [facility] CT Chest W contrast [place] IMPRESSION: [...] any questions regarding this interpretation, please call [phone]. If you are unable to reach us at the number above, please feel free to contact [facility] at [phone]. DIVISION OF RADIOLOGY * * *Final Report* * * DATE OF EXAM: Dec 13 2021 9:56AM [facility] 0539 - CT CHEST W IVCON [...] performed concurrently and will be dictated separately. Manufacturing Analyst (topogram) images: No additional findings. DIVISION OF RADIOLOGY Provider, [facility] - 12/13/2021 * * *Final Report* * * DATE OF EXAM: Dec 13 2021 9:56AM [facility] 0539 - CT CHEST W IVCON [...] performed concurrently and will be dictated separately. Manufacturing Analyst (topogram) images: No additional findings. IMPRESSION IMPRESSION: [...] any questions regarding this interpretation, please call [phone]. If you are unable to reach us at the number above, please feel free to contact [facility] at [phone]. [facility] No Panel Informationon 12-13 Radiology Study observation (narrative) [facility] CBC with Diffon 11-22-2021 Abs. Basophil 0.00 k/uL Normal 0.0-0.2 [facility] Comment on above: Performed By: #### C DP, CMPX, SED, LAC #### [facility] [address] [place] [address] Cardiothoracic Surgeon: Jacob Campos MD Abs.Neutrophil (Seg) 2.80 k/uL Normal 2.5-7.0 [facility] Comment on above: Performed By: #### C DP, CMPX, SED, LAC #### [facility] [address] [place] [id number] Cardiothoracic Surgeon: Jacob Campos MD Auto Diff Performed YES Normal [facility] Comment on above: Performed By: #### C DP, CMPX, SED, LAC #### [facility] [address] [place] [address] Cardiothoracic Surgeon: Jacob Campos MD Basophils/100 WBC (Bld) 1 % Normal 0-2 [facility] Comment on above: Performed By: #### C DP, CMPX, SED, LAC #### [facility] [address] [place] [address] Cardiothoracic Surgeon: Jacob Campos MD Eosinophils (Bld) [#/Vol] 0.10 10*3/uL Normal 0.0-0.4 [facility] Comment on above: Performed By: #### C DP, CMPX, SED, LAC #### [facility] [address] [place] [id number] Cardiothoracic Surgeon: Jacob Campos MD Eosinophils/100 WBC (Bld) 3 % Normal 0-5 [facility] Comment on above: Performed By: #### C DP, CMPX, SED, LAC #### [facility] [address] [place] [address] Cardiothoracic Surgeon: Jacob Campos MD Erythrocyte distribution width (RBC) [Ratio] 13.6 % Normal 12.1-15.2 [facility] Comment on above: Performed By: #### C DP, CMPX, SED, LAC #### [facility] [address] [place] [id number] Cardiothoracic Surgeon: Jacob Campos MD Hematocrit (Bld) [Volume fraction] 33.4 % Low 36-46 [facility] Comment on above: Performed By: #### C DP, CMPX, SED, LAC #### [facility] [address] [place] [address] Cardiothoracic Surgeon: Jacob Campos MD Hemoglobin (Bld) [Mass/Vol] 11.3 g/dL Low 12.0-16.0 [facility] Comment on above: Performed By: #### C DP, CMPX, SED, LAC #### [facility] [address] [place] [address] Cardiothoracic Surgeon: Jacob Campos MD Lymphocytes (Bld) [#/Vol] 0.80 10*3/uL Low 1.0-4.8 [facility] Comment on above: Performed By: #### C DP, CMPX, SED, LAC #### [facility] [address] [place] [address] Cardiothoracic Surgeon: Jacob Campos MD Lymphocytes/100 WBC (Bld) 19 % Normal 15-40 [facility] Comment on above: Performed By: #### C DP, CMPX, SED, LAC #### [facility] [address] [place] [id number] Cardiothoracic Surgeon: Jacob Campos MD MCH (RBC) [Entitic mass] 30.5 pg Normal 26-34 [facility] Comment on above: Performed By: #### C DP, CMPX, SED, LAC #### [facility] [address] [place] [address] Cardiothoracic Surgeon: Jacob Campos MD MCHC (RBC) [Mass/Vol] 33.8 g/dL Normal 31-37 [facility] Comment on above: Performed By: #### C DP, CMPX, SED, LAC #### [facility] [address] [id number] Cardiothoracic Surgeon: Jacob Campos MD MCV (RBC) [Entitic vol] 90.4 fL Normal 80-100 [facility] Comment on above: Performed By: #### C DP, CMPX, SED, LAC #### [facility] [address] [place] [id number] Cardiothoracic Surgeon: Jacob Campos MD Monocytes (Bld) [#/Vol] 0.50 10*3/uL Normal 0.0-1.0 [facility] Comment on above: Performed By: #### C DP, CMPX, SED, LAC #### [facility] [address] [place] [address] Cardiothoracic Surgeon: Jacob Campos MD Monocytes/100 WBC (Bld) 12 % High 4-8 [facility] Comment on above: Performed By: #### C DP, CMPX, SED, LAC #### [facility] [address] [place] [address] Cardiothoracic Surgeon: Jacob Campos MD Neutrophil (Seg) 65 % Normal 47-75 [facility] Comment on above: Performed By: #### C DP, CMPX, SED, LAC #### [facility] [address] [place] [address] Cardiothoracic Surgeon: Jacob Campos MD Platelets (Bld) [#/Vol] 378 10*3/uL Normal 140-450 [facility] Comment on above: Performed By: #### C DP, CMPX, SED, LAC #### [facility] [address] [place] [id number] Cardiothoracic Surgeon: Jacob Campos MD RBC (Bld) [#/Vol] 3.70 10*6/uL Low 4.0-5.2 [facility] Comment on above: Performed By: #### C DP, CMPX, SED, LAC #### [facility] [address] [place] [id number] Cardiothoracic Surgeon: Jacob Campos MD WBC (Bld) [#/Vol] 4.3 10*3/uL Normal 3.5-11.0 [facility] Comment on above: Performed By: #### C DP, CMPX, SED, LAC #### [facility] [address] [place] [address] Cardiothoracic Surgeon: Jacob Campos MD Comp Metabolic Pr/rfx MGon 0 11-22-2021 (cont.) Normal [facility] Comment on above: Result Comment: Aver age GFR for 60-69 years old: 85 mL/min/1.73sq m Chronic Kidney Disease: <60 mL/min/1.73sq m Kidney failure: <15 mL/min/1.73sq m eGFR calculated using average adult body mass. Additional eGFR calculator available at: http://www.[employer]/multiple_crcl_2011.htm Performed By: #### C DP, CMPX, SED, LAC #### [facility] [address] [place] [address] Cardiothoracic Surgeon: Jacob Campos MD Albumin [Mass/Vol] 3.5 g/dL Normal 3.5-5.2 [facility] Comment on above: Performed By: #### C DP, CMPX, SED, LAC #### [facility] [address] [place] [address] Cardiothoracic Surgeon: Jacob Campos MD Alkaline Phos 239 U/L High 35-104 [facility] Comment on above: Performed By: #### C DP, CMPX, SED, LAC #### [facility] [address] [place] [id number] Cardiothoracic Surgeon: Jacob Campos MD ALT [Catalytic activity/Vol] 23 U/L Normal 5-33 [facility] Comment on above: Performed By: #### C DP, CMPX, SED, LAC #### [facility] [address] [place] [address] Cardiothoracic Surgeon: Jacob Campos MD Anion gap [Moles/Vol] 11 mmol/L Normal 9-17 [facility] Comment on above: Performed By: #### C DP, CMPX, SED, LAC #### [facility] [address] [place] [id number] Cardiothoracic Surgeon: Jacob Campos MD AST [Catalytic activity/Vol] 21 U/L Normal <32 [facility] Comment on above: Performed By: #### C DP, CMPX, SED, LAC #### [facility] [address] [place] [id number] Cardiothoracic Surgeon: Jacob Campos MD Bilirubin [Mass/Vol] 0.27 mg/dL Low 0.30-1.20 [facility] Comment on above: Performed By: #### C DP, CMPX, SED, LAC #### [facility] [address] [place] [address] Cardiothoracic Surgeon: Jacob Campos MD BUN/CRE Ratio 22 High 9-20 [facility] Comment on above: Performed By: #### C DP, CMPX, SED, LAC #### [facility] [address] [place] [id number] Cardiothoracic Surgeon: Jacob Campos MD Calcium [Mass/Vol] 9.5 mg/dL Normal 8.6-10.4 [facility] Comment on above: Performed By: #### C DP, CMPX, SED, LAC #### [facility] [address] [place] [address] Cardiothoracic Surgeon: Jacob Campos MD Chloride [Moles/Vol] 102 mmol/L Normal 98-107 [facility] Comment on above: Performed By: #### C DP, CMPX, SED, LAC #### [facility] [address] [place] [id number] Cardiothoracic Surgeon: Jacob Campos MD CO2 [Moles/Vol] 26 mmol/L Normal 20-31 [facility] Comment on above: Performed By: #### C DP, CMPX, SED, LAC #### [facility] [address] [place], [place] [id number] Cardiothoracic Surgeon: Jacob Campos MD Creatinine [Mass/Vol] 0.58 mg/dL Normal 0.50-0.90 [facility] Comment on above: Performed By: #### C DP, CMPX, SED, LAC #### [facility] [address] [place], [place] [id number] Cardiothoracic Surgeon: Jacob Campos MD GFR, Amer >60 Normal >60 [facility] Comment on above: Performed By: #### C DP, CMPX, SED, LAC #### [facility] [address] [place] [address] Cardiothoracic Surgeon: Jacob Campos MD GFR,non Amer >60 Normal >60 [facility] Comment on above: Performed By: #### C DP, CMPX, SED, LAC #### [facility] [address] [place], [place] [id number] Cardiothoracic Surgeon: Jacob Campos MD Glucose [Mass/Vol] 109 mg/dL High 70-99 [facility] Comment on above: Performed By: #### C DP, CMPX, SED, LAC #### [facility] [address] [place], [place] [id number] Cardiothoracic Surgeon: Jacob Campos MD Potassium [Moles/Vol] 3.7 mmol/L Normal 3.7-5.3 [facility] Comment on above: Performed By: #### C DP, CMPX, SED, LAC #### [facility] [address] [place], [place] [id number] Cardiothoracic Surgeon: Jacob Campos MD Protein [Mass/Vol] 7.0 g/dL Normal 6.4-8.3 [facility] Comment on above: Performed By: #### C DP, CMPX, SED, LAC #### [facility] [address] [place], [place] [id number] Cardiothoracic Surgeon: Jacob Campos MD Sodium [Moles/Vol] 139 mmol/L Normal 135-144 [facility] Comment on above: Performed By: #### C DP, CMPX, SED, LAC #### [facility] [address] [place], [place] [id number] Cardiothoracic Surgeon: Jacob Campos MD Urea nitrogen [Mass/Vol] 13 mg/dL Normal 8-23 [facility] Comment on above: Performed By: #### C DP, CMPX, SED, LAC #### [facility] [address] [place], [place] [id number] Cardiothoracic Surgeon: Jacob Campos MD Lactic Acidon 11-22-2021 Lactate [Moles/Vol] 0.7 mmol/L Normal 0.5-2.2 [facility] Comment on above: Performed By: #### C DP, CMPX, SED, LAC #### [facility] [address] [place], [place] [id number] Cardiothoracic Surgeon: Jacob Campos MD Sedimentation Rateon 022 Sedimentation Rate 48 mm High 0-30 [facility] Comment on above: Performed By: #### C DP, CMPX, SED, LAC #### [facility] [address] [place], [place] [id number] Cardiothoracic Surgeon: Jacob Campos MD Urinalysis, Routineon 2021 Bilirubin, SemiQt,Ur Negative Normal NEG [facility] Comment on above: Performed By: #### U A #### [facility] [address] [place] [address] Cardiothoracic Surgeon: Jacob Cmapos MD Blood, Urine Negative Normal NEG [facility] Comment on above: Performed By: #### U A #### [facility] [address] [place], [place] [id number] Cardiothoracic Surgeon: Jacob Campos MD Clarity (U) Clear Normal CLEAR [facility] Comment on above: Performed By: #### U A #### [facility] [address] [place], [place] [id number] Cardiothoracic Surgeon: Jacob Campos MD Color (U) Yellow Normal YEL [facility] Comment on above: Performed By: #### U A #### [facility] [address] [place] [address] Cardiothoracic Surgeon: Jacob Campos MD Comment Normal [facility] Comment on above: Performed By: #### U A #### [facility] [address] [place] [address] Cardiothoracic Surgeon: Jacob Campos MD Glucose Ql (U) Negative Normal NEG [facility] Comment on above: Performed By: #### U A #### [facility] [address] [place] [address] Cardiothoracic Surgeon: Jacob Campos MD Ketones Ql (U) Negative Normal NEG [facility] Comment on above: Performed By: #### U A #### [facility] [address] [place] [address] Cardiothoracic Surgeon: Jacob Campos MD Leukocyte esterase Test strip Ql (U) Negative Normal NEG [facility] Comment on above: Performed By: #### U A #### [facility] [address] [place], [place] [id number] Cardiothoracic Surgeon: Jacob Campos MD Nitrite,Ur Negative Normal NEG [facility] Comment on above: Performed By: #### U A #### [facility] [address] [place] [address] Cardiothoracic Surgeon: Jacob Campos MD PH,Ur 6.5 Normal 5.0-8.0 [facility] Comment on above: Performed By: #### U A #### [facility] [address] [place], [place] [id number] Cardiothoracic Surgeon: Jacob Campos MD Protein Ql (U) Negative Normal NEG [facility] Comment on above: Performed By: #### U A #### [facility] [address] [place], [place] [id number] Cardiothoracic Surgeon: Jacob Campos MD Spec. [place],Ur 1.015 Normal 1.005-1.030 [facility] Comment on above: Performed By: #### U A #### [facility] [address] [place], [place] [id number] Cardiothoracic Surgeon: Jacob Campos MD Urobilinogen,Ur Normal Normal NORM [facility] Comment on above: Performed By: #### U A #### [facility] [address] [place], [place] [id number] Cardiothoracic Surgeon: Jacob Campos MD Basic Metabolic Panelon Calcium [Mass/Vol] 9.4 mg/dL Normal 8.2-10.2 [facility] Comment on above: Performed By: #### C BC, BMP #### [facility] [address] [place] [address] [place] Chloride [Moles/Vol] 101 mmol/L Normal 95-114 [facility] Comment on above: Performed By: #### C BC, BMP #### [facility] [address] [place] [id number] [place] CO2 [Moles/Vol] 26.3 mmol/L Normal 22.0-30.[address] [facility] Comment on above: Performed By: #### C BC, BMP #### [facility] [address] [place] [address] [place] Creatinine [Mass/Vol] 0.72 mg/dL Normal 0.44-1.03 [facility] Comment on above: Performed By: #### C BC, BMP #### [facility] [address] [place] [id number] [place] Creatinine Clr Calc Pharmacy 76.81 Normal [facility] Comment on above: Result Comment: PERF ORMED BY: [place] [address] PATHOLOGIST HAND LEATHER TRIMMER CLAIRE ANTHONY M.D. Performed By: #### C BC, BMP #### [address] Estimated GFR ( Damon > 60 Normal [facility] Comment on above: Result Comment: GFR estimated reference range: According to KDOQI guidelines, <60 ml/min/1.73m2 is sufficient to diagnose a patient with chronic kidney disease. Performed By: #### C BC, BMP #### [address] Estimated GFR (Non- Am > 60 [facility] Comment on above: Performed By: #### C BC, BMP #### [address] Glucose [Mass/Vol] 104 mg/dL High 70-100 [facility] Comment on above: Result Comment: [place] Glucose Reference Range is dependent on time and content of last meal. Glucose of more than 200 mg/dL in a nonstressed, ambulatory subject supports the diagnosis of Diabetes Mellitus. ADA recommended reference range Performed By: #### C BC, BMP #### [address] Potassium [Moles/Vol] 3.8 mmol/L Normal 3.5-5.1 [facility] Comment on above: Performed By: #### C BC, BMP #### [address] Sodium [Moles/Vol] 138 mmol/L Normal 136-146 [facility] Comment on above: Performed By: #### C BC, BMP #### [address] Urea nitrogen [Mass/Vol] 13 mg/dL Normal 9-23 [facility] Comment on above: Performed By: #### C BC, BMP #### [address] CBC with Diffon 11-21-2021 Abs.Imm.Granulocyte NOT REPORTED Normal 0.00-0.30 [facility] Comment on above: Performed By: #### C DP, CMPX, SED, LAC #### [facility] [address] [place] [address] Cardiothoracic Surgeon: Jacob Campos MD Immature Granulocyte NOT REPORTED Normal 0 [facility] Comment on above: Performed By: #### C DP, CMPX, SED, LAC #### [facility] [address] [place] [address] Cardiothoracic Surgeon: Jacob Campos MD MPV NOT REPORTED Normal 6.0-12.0 [facility] Comment on above: Performed By: #### C DP, CMPX, SED, LAC #### [facility] [address] [place] [address] Cardiothoracic Surgeon: Jacob Campos MD NRBC Automated NOT REPORTED Normal [facility] Comment on above: Performed By: #### C DP, CMPX, SED, LAC #### [facility] [address] [place] [id number] Cardiothoracic Surgeon: Jacob Campos MD Platelet Comment NOT REPORTED Normal [facility] Comment on above: Performed By: #### C DP, CMPX, SED, LAC #### [facility] [address] [place], [place] [id number] Cardiothoracic Surgeon: Jacob Campos MD RBC morphology finding Nom (Bld) NOT REPORTED Normal [facility] Comment on above: Performed By: #### C DP, CMPX, SED, LAC #### [facility] [address] [place], [place] [id number] Cardiothoracic Surgeon: Jacob Campos MD WBC Morphology NOT REPORTED Normal [facility] Comment on above: Performed By: #### C DP, CMPX, SED, LAC #### [facility] [address] [place], [place] [id number] Cardiothoracic Surgeon: Jacob Campos MD Comp Metabolic Pr/rfx MGon 0 11-21-2021 Albumin/Glob Ratio NOT REPORTED Normal 1.0-2.5 [facility] Comment on above: Performed By: #### C DP, CMPX, SED, LAC #### [facility] [address] [place] [address] Cardiothoracic Surgeon: Jacob Campos MD Staging: NOT REPORTED Normal [facility] Comment on above: Performed By: #### C DP, CMPX, SED, LAC #### [facility] [address] [place] [address] Cardiothoracic Surgeon: Jacob Campos MD Complete Blood Count Auto Di ffon 11-21-2021 Basophils (Bld) [#/Vol] 0.0 10*3/uL Normal 0.0-0.2 [facility] Comment on above: Result Comment: PERF ORMED BY: [place] [address] PATHOLOGIST HAND LEATHER TRIMMER CLAIRE ANTHONY M.D. Performed By: #### C BC, BMP #### [place] [address] [place] Basophils/100 WBC (Bld) 0.7 % Normal . [facility] Comment on above: Performed By: #### C BC, BMP #### [facility] [address] [place] [address] [place] Eosinophils (Bld) [#/Vol] 0.1 10*3/uL Normal 0.0-0.45 [facility] Comment on above: Performed By: #### C BC, BMP #### [facility] [address] [place] [address] [place] Eosinophils/100 WBC (Bld) 2.8 % Normal . [facility] Comment on above: Performed By: #### C BC, BMP #### [facility] [address] Erythrocyte distribution width (RBC) [Ratio] 13.2 % Normal 11.9-15.3 [facility] Comment on above: Performed By: #### C BC, BMP #### [address] Hematocrit (Bld) [Volume fraction] 35.7 % Normal 34.0-46.4 [facility] Comment on above: Performed By: #### C BC, BMP #### [address] Hemoglobin (Bld) [Mass/Vol] 11.9 g/dL Normal 11.8-15.4 [facility] Comment on above: Performed By: #### C BC, BMP #### [address] Lymphocytes (Bld) [#/Vol] 0.8 10*3/uL Low 1.00-4.8 [facility] Comment on above: Performed By: #### C BC, BMP #### [address] Lymphocytes/100 WBC (Bld) 16.7 % Normal . [facility] Comment on above: Performed By: #### C BC, BMP #### [address] MCH (RBC) [Entitic mass] 30.2 pg Normal 24.7-34.3 [facility] Comment on above: Performed By: #### C BC, BMP #### [address] MCV (RBC) [Entitic vol] 90.6 fL Normal 80-100 [facility] Comment on above: Performed By: #### C BC, BMP #### [address] Mean Corpuscular HGB Conc 33.3 g/dL Normal 32.0-35.0 [facility] Comment on above: Performed By: #### C BC, BMP #### [address] Monocytes (Bld) [#/Vol] 0.4 10*3/uL Normal 0.0-0.8 [facility] Comment on above: Performed By: #### C BC, BMP #### [facility] [address] [place] [address] [place] Monocytes/100 WBC (Bld) 9.1 % Normal . [facility] Comment on above: Performed By: #### C BC, BMP #### [facility] [address] [place] [id number] [place] Neutrophils (Bld) [#/Vol] 3.4 10*3/uL Normal 1.8-7.7 [facility] Comment on above: Performed By: #### C BC, BMP #### [facility] [address] [place] [address] [place] Neutrophils/100 WBC (Bld) 70.7 % Normal . [facility] Comment on above: Performed By: #### C SANTANA, BMP #### [facility] [address] [place] [address] [place] Nucleated RBC/100 WBC (Bld) [Ratio] 0.0 % Normal 0-0.5 [facility] Comment on above: Performed By: #### C SANTANA, BMP #### [facility] [address] [place] [phone] [place] Platelet mean volume (Bld) [Entitic vol] 6.9 fL Normal 6.3-10.7 [facility] Comment on above: Performed By: #### C SANTANA, BMP #### [facility] [address] [place] [phone] [place] Platelets (Bld) [#/Vol] 423 10*3/uL Normal 150-450 [facility] Comment on above: Performed By: #### C SANTANA, BMP #### [facility] [address] [place] [id number] [place] RBC (Bld) [#/Vol] 3.94 10*6/uL Normal 3.60-5.00 [facility] Comment on above: Performed By: #### C BC, BMP #### [facility] [address] [place] [id number] [place] WBC (Bld) [#/Vol] 4.8 10*3/uL Normal 4.5-11.0 [facility] Comment on above: Performed By: #### C BC, BMP #### [facility] [address] [place] [address] [place] Dipstick and Microscopicon 0 11-21-2021 Appearance (U) Clear Normal Clear [facility] Comment on above: Order Comment: Name Collection Type:: Clean-Voided Midstream Performed By: #### C BC, BMP #### [facility] [address] [place] [address] [place] Bacteria,Urine None Seen Normal None Seen [facility] Comment on above: Order Comment: Name Collection Type:: Clean-Voided Midstream Performed By: #### C BC, BMP #### [facility] [address] [place] [address] [place] Bilirubin,Urine Negative Normal Negative [facility] Comment on above: Order Comment: Name Collection Type:: Clean-Voided Midstream Performed By: #### C BC, BMP #### [facility] [address] [place] [address] [place] Color (U) Yellow Normal Yellow [facility] Comment on above: Order Comment: Name Collection Type:: Clean-Voided Midstream Performed By: #### C BC, BMP #### [facility] [address] [place] [address] [place] Glucose Ql (U) Normal Normal Normal [facility] Comment on above: Order Comment: Name Collection Type:: Clean-Voided Midstream Performed By: #### C BC, BMP #### [facility] [address] [place] [address] [place] Hyaline Casts,Urine 0-8 Normal 0-8 [facility] Comment on above: Order Comment: Name Collection Type:: Clean-Voided Midstream Result Comment: PERF ORMED BY: [place] [address] PATHOLOGIST HAND LEATHER TRIMMER CLAIRE ANTHONY M.D. Performed By: #### C BC, BMP #### [facility] [address] [place] [address] [place] Ketones Ql (U) Negative Normal Negative [facility] Comment on above: Order Comment: Name Collection Type:: Clean-Voided Midstream Performed By: #### C BC, BMP #### [address] Leukocyte esterase Test strip Ql (U) 1+ High Negative [facility] Comment on above: Order Comment: Name Collection Type:: Clean-Voided Midstream Performed By: #### C BC, BMP #### [place] [address] [place] Nitrite,Urine Negative Normal Negative [facility] Comment on above: Order Comment: Name Collection Type:: Clean-Voided Midstream Performed By: #### C BC, BMP #### [address] Occult Blood,Urine Negative Normal Negative [facility] Comment on above: Order Comment: Name Collection Type:: Clean-Voided Midstream Result Comment: PERF ORMED BY: [place] [address] PATHOLOGIST HAND LEATHER TRIMMER CLAIRE ANTHONY M.D. Performed By: #### C BC, BMP #### [place] [address] [place] pH (U) 6.5 [pH] Normal 5.0-9.0 [facility] Comment on above: Order Comment: Name Collection Type:: Clean-Voided Midstream Performed By: #### C BC, BMP #### [address] Protein,Urine Negative Normal Negative [facility] Comment on above: Order Comment: Name Collection Type:: Clean-Voided Midstream Performed By: #### C BC, BMP #### [place] [address] [place] RBC,Urine 1-2 Normal 0-4 [facility] Comment on above: Order Comment: Name Collection Type:: Clean-Voided Midstream Performed By: #### C BC, BMP #### [place] [address] [place] Specificy [place],Urine 1.014 Normal 1.001-1.030 [facility] Comment on above: Order Comment: Name Collection Type:: Clean-Voided Midstream Performed By: #### C BC, BMP #### [address] Squamous Epithelial Cell,Urine None Seen Normal 0-2 [facility] Comment on above: Order Comment: Name Collection Type:: Clean-Voided Midstream Performed By: #### C BC, BMP #### [address] Urobilinogen,Urine Normal Normal Normal [facility] Comment on above: Order Comment: Name Collection Type:: Clean-Voided Midstream Performed By: #### C BC, BMP #### [place] [address] [place] WBC,Urine 1-2 Normal 0-4 [facility] Comment on above: Order Comment: Name Collection Type:: Clean-Voided Midstream Performed By: #### C BC, BMP #### [address] Complete Blood Count Auto Di ffon 11-04-2021 Basophils (Bld) [#/Vol] 0.0 10*3/uL Normal 0.0-0.2 [facility] Comment on above: Result Comment: PERF ORMED BY: [place] [address] PATHOLOGIST HAND LEATHER TRIMMER CLAIRE ANTHONY M.D. Performed By: #### C BC, BMP #### [place] [address] [place] Basophils/100 WBC (Bld) 0.1 % Normal . [facility] Comment on above: Performed By: #### C BC, BMP #### [place] [address] [place] Eosinophils (Bld) [#/Vol] 0.1 10*3/uL Normal 0.0-0.45 [facility] Comment on above: Performed By: #### C BC, BMP #### [place] [address] [place] Eosinophils/100 WBC (Bld) 1.3 % Normal . [facility] Comment on above: Performed By: #### C BC, BMP #### [facility] [address] Erythrocyte distribution width (RBC) [Ratio] 13.0 % Normal 11.9-15.3 [facility] Comment on above: Performed By: #### C BC, BMP #### [facility] [address] Hematocrit (Bld) [Volume fraction] 27.5 % Low 34.0-46.4 [facility] Comment on above: Performed By: #### C BC, BMP #### [address] Hemoglobin (Bld) [Mass/Vol] 9.3 g/dL Low 11.8-15.4 [facility] Comment on above: Performed By: #### C BC, BMP #### [address] Lymphocytes (Bld) [#/Vol] 0.5 10*3/uL Low 1.00-4.8 [facility] Comment on above: Performed By: #### C BC, BMP #### [place] [address] [place] Lymphocytes/100 WBC (Bld) 6.3 % Normal . [facility] Comment on above: Performed By: #### C BC, BMP #### [address] MCH (RBC) [Entitic mass] 31.1 pg Normal 24.7-34.3 [facility] Comment on above: Performed By: #### C BC, BMP #### [address] MCV (RBC) [Entitic vol] 92.0 fL Normal 80-100 [facility] Comment on above: Performed By: #### C BC, BMP #### [address] Mean Corpuscular HGB Conc 33.8 g/dL Normal 32.0-35.0 [facility] Comment on above: Performed By: #### C BC, BMP #### [facility] [address] [place] [address] [place] Monocytes (Bld) [#/Vol] 0.8 10*3/uL Normal 0.0-0.8 [facility] Comment on above: Performed By: #### C BC, BMP #### [facility] [address] [place] [address] [place] Monocytes/100 WBC (Bld) 10.8 % Normal . [facility] Comment on above: Performed By: #### C BC, BMP #### [facility] [address] [place] [address] [place] Neutrophils (Bld) [#/Vol] 5.9 10*3/uL Normal 1.8-7.7 [facility] Comment on above: Performed By: #### C BC, BMP #### [facility] [address] [place] [id number] [place] Neutrophils/100 WBC (Bld) 81.5 % Normal . [facility] Comment on above: Performed By: #### C BC, BMP #### [facility] [address] [place] [address] [place] Nucleated RBC/100 WBC (Bld) [Ratio] 0.0 % Normal 0-0.5 [facility] Comment on above: Performed By: #### C BC, BMP #### [facility] [address] [place] [id number] [place] Platelet mean volume (Bld) [Entitic vol] 7.4 fL Normal 6.3-10.7 [facility] Comment on above: Performed By: #### C BC, BMP #### [facility] [address] [place] [id number] [place] Platelets (Bld) [#/Vol] 135 10*3/uL Low 150-450 [facility] Comment on above: Performed By: #### C BC, BMP #### [facility] [address] [place] [id number] [place] RBC (Bld) [#/Vol] 2.99 10*6/uL Low 3.60-5.00 [facility] Comment on above: Performed By: #### C BC, BMP #### [address] WBC (Bld) [#/Vol] 7.3 10*3/uL Normal 4.5-11.0 [facility] Comment on above: Performed By: #### C BC, BMP #### [address] Electrolyteson 11-04-2021 Chloride [Moles/Vol] 106 mmol/L Normal 95-114 [facility] Comment on above: Performed By: #### C BC, BMP #### [address] CO2 [Moles/Vol] 25.2 mmol/L Normal 22.0-30.[address] [facility] Comment on above: Result Comment: PERF ORMED BY: [place] [address] PATHOLOGIST HAND LEATHER TRIMMER CLAIRE ANTHONY M.D. Performed By: #### C BC, BMP #### [address] Potassium [Moles/Vol] 3.7 mmol/L Normal 3.5-5.1 [facility] Comment on above: Performed By: #### C BC, BMP #### [address] Sodium [Moles/Vol] 137 mmol/L Normal 136-146 [facility] Comment on above: Performed By: #### C BC, BMP #### [address] Complete Blood Count Auto Di ffon 11-03-2021 Basophils (Bld) [#/Vol] 0.0 10*3/uL Normal 0.0-0.2 [facility] Comment on above: Result Comment: PERF ORMED BY: [place] [address] PATHOLOGIST HAND LEATHER TRIMMER CLAIRE ANTHONY M.D. Performed By: #### C BC, BMP #### [address] [place] [address] [place] Basophils/100 WBC (Bld) 0.1 % Normal . [facility] Comment on above: Performed By: #### C BC, BMP #### [address] Eosinophils (Bld) [#/Vol] 0.0 10*3/uL Normal 0.0-0.45 [facility] Comment on above: Performed By: #### C BC, BMP #### [address] Eosinophils/100 WBC (Bld) 0.3 % Normal . [facility] Comment on above: Performed By: #### C BC, BMP #### [address] Erythrocyte distribution width (RBC) [Ratio] 12.8 % Normal 11.9-15.3 [facility] Comment on above: Performed By: #### C BC, BMP #### [address] Hematocrit (Bld) [Volume fraction] 29.5 % Low 34.0-46.4 [facility] Comment on above: Performed By: #### C BC, BMP #### [address] Hemoglobin (Bld) [Mass/Vol] 9.9 g/dL Low 11.8-15.4 [facility] Comment on above: Performed By: #### C BC, BMP #### [address] Lymphocytes (Bld) [#/Vol] 0.5 10*3/uL Low 1.00-4.8 [facility] Comment on above: Performed By: #### C BC, BMP #### [address] Lymphocytes/100 WBC (Bld) 7.4 % Normal . [facility] Comment on above: Performed By: #### C BC, BMP #### [address] MCH (RBC) [Entitic mass] 30.9 pg Normal 24.7-34.3 [facility] Comment on above: Performed By: #### C SANTANA, BMP #### [address] MCV (RBC) [Entitic vol] 92.1 fL Normal 80-100 [facility] Comment on above: Performed By: #### C BC, BMP #### [address] Mean Corpuscular HGB Conc 33.6 g/dL Normal 32.0-35.0 [facility] Comment on above: Performed By: #### C SANTANA, BMP #### [address] Monocytes (Bld) [#/Vol] 0.7 10*3/uL Normal 0.0-0.8 [facility] Comment on above: Performed By: #### C SANTANA, BMP #### [address] Monocytes/100 WBC (Bld) 10.0 % Normal . [facility] Comment on above: Performed By: #### C SANTANA, BMP #### [address] Neutrophils (Bld) [#/Vol] 5.8 10*3/uL Normal 1.8-7.7 [facility] Comment on above: Performed By: #### C BC, BMP #### [address] Neutrophils/100 WBC (Bld) 82.2 % Normal . [facility] Comment on above: Performed By: #### C BC, BMP #### [address] Nucleated RBC/100 WBC (Bld) [Ratio] 0.0 % Normal 0-0.5 [facility] Comment on above: Performed By: #### C BC, BMP #### [address] Platelet mean volume (Bld) [Entitic vol] 8.1 fL Normal 6.3-10.7 [facility] Comment on above: Performed By: #### C BC, BMP #### [address] Platelets (Bld) [#/Vol] 153 10*3/uL Normal 150-450 [facility] Comment on above: Performed By: #### C BC, BMP #### [address] RBC (Bld) [#/Vol] 3.21 10*6/uL Low 3.60-5.00 [facility] Comment on above: Performed By: #### C BC, BMP #### [address] WBC (Bld) [#/Vol] 7.0 10*3/uL Normal 4.5-11.0 [facility] Comment on above: Performed By: #### C BC, BMP #### [address] Electrolyteson 11-03-2021 Chloride [Moles/Vol] 104 mmol/L Normal 95-114 [facility] [facility] Comment on above: Performed By: #### C BC, BMP #### [address] CO2 [Moles/Vol] 28.5 mmol/L Normal 22.0-30.[address] [facility] Comment on above: Result Comment: PERF ORMED BY: [place] [address] PATHOLOGIST HAND LEATHER TRIMMER CLAIRE ANTHONY M.D. Performed By: #### C BC, BMP #### [address] Potassium [Moles/Vol] 4.2 mmol/L Normal 3.5-5.1 [facility] Comment on above: Performed By: #### C BC, BMP #### [address] Sodium [Moles/Vol] 139 mmol/L Normal 136-146 [facility] Comment on above: Performed By: #### C , [facility] #### [place] [id number] [facility] 11-02-2021 L -- ---- Specimen: [id number] Received: 11/02/21 Status: GARRETT Chavisizzy Num: [id number] Spec Type: Surgical Subm Dr: Mary Gatica Jr, DO Tissues: A Gross Only (BONE/TISSUE RT HIP) Procedures: Level 1 Gross ---- Patient Age/Sex Location Account Attending Physician ---- Isabel Waddell 61/F 4N [id number] Mary Gatica Jr, DO ---- SPEC NUM: [id number] RECD: 11/02/21 STATUS: GARRETT ALEJO NUM: [id number] FRANCISCA: 11/02/[address] [facility] [address]: Mary Gatica Jr, DO ENTERED: 11/02/[address]: MARTIN TYPE: Surgical DEPT: S ORDERED: [...] only. (JUAN/DORA) Microscopic Description Gross examination only. [id number] ---- ---- Specimen: [id number] Received: 11/02/21 Status: GARRETT Alejo Num: [id number] Spec Type: Surgical Subm Dr: Mary Gatica Jr, DO Tissues: A Gross Only (BONE/TISSUE RT HIP) Procedures: Level 1 Gross ---- Patient: Isabel Waddell [id number] (Continued) ---- Signed (signature on file) Claire Anthony MD 11/02/21 1559 [facility] LeukoReduced RBCon LeukoReduced RBC READY [facility] Type and Screenon 11-02-2021 ABO and Rh group Nom (Bld) Blood group O Rh(D) positive [facility] Comment on above: Order Comment: Trans fuse now? N XR low pelvis w/RT x-table h ipon 11-02-2021 XR low pelvis w/RT x-table hip [facility] [place] [address] XRay Report Signed Patient: Isabel Waddell MR#: [id number] : 1960 Acct:[id number] Age/Sex: 61 / F ADM Date: 11/02/21 Loc: 4N Room: [address] [place] [address] Type: REG [facility] Attending Dr: Mary Gatica Jr, DO Ordering Provider: Mary Gatica Jr, DO Date of Service: 11/02/21 XR/XR low pelvis w/RT x-table hip: Total hip, do in PACU Copies to: Mary Chase En Flores, DO XR low pelvis w/RT x-table hip [...] Shiva Stafford M.D.11/02/2021 2:41 PM Dictation Location: [place] [address] Transcribed By: [facility] 11/02/21 1441 Dictated By: Shiva Stafford II, MD 11/02/21 1440 Signed By: 11/02/21 1441 Normal [facility] COVID[facility]19 [facility] [place] SARS-CoV-2 (COVID-19) RNA ANGELA+probe Ql (Unsp spec) Negative Normal Negative [facility] Comment on above: Order Comment: 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 This test has not been FDA [...] is terminated or revoked sooner. PERFORMED BY: [place] [address] PATHOLOGIST HAND LEATHER TRIMMER CLAIRE ANTHONY M.D. Performed By: #### C BC, BMP #### [address] Basic Metabolic Panelon 11-2 Calcium [Mass/Vol] 9.3 mg/dL Normal 8.2-10.2 [facility] Comment on above: Result Comment: PERF ORMED BY: [place] [address] PATHOLOGIST HAND LEATHER TRIMMER CLAIRE ANTHONY M.D. Performed By: #### C BC, BMP #### [address] Chloride [Moles/Vol] 104 mmol/L Normal 95-114 [facility] Comment on above: Performed By: #### C BC, BMP #### [address] CO2 [Moles/Vol] 28.3 mmol/L Normal 22.0-30.[address] [facility] Comment on above: Performed By: #### C BC, BMP #### [address] Creatinine [Mass/Vol] 0.61 mg/dL Normal 0.44-1.03 [facility] Comment on above: Performed By: #### C BC, BMP #### [address] Estimated GFR ( Damon > 60 Normal [facility] Comment on above: Result Comment: GFR estimated reference range: According to KDOQI guidelines, <60 ml/min/1.73m2 is sufficient to diagnose a patient with chronic kidney disease. Performed By: #### C BC, BMP #### [address] [place] [address] [place] Estimated GFR (Non- Am > 60 Normal [facility] Comment on above: Performed By: #### C BC, BMP #### [address] Glucose [Mass/Vol] 100 mg/dL Normal 70-100 [facility] Comment on above: Result Comment: [facility] Glucose Reference Range is dependent on time and content of last meal. Glucose of more than 200 mg/dL in a nonstressed, ambulatory subject supports the diagnosis of Diabetes Mellitus. ADA recommended reference range Performed By: #### C BC, BMP #### [address] Potassium [Moles/Vol] 4.7 mmol/L Normal 3.5-5.1 [facility] Comment on above: Performed By: #### C BC, BMP #### [address] Sodium [Moles/Vol] 140 mmol/L Normal 136-146 [facility] Comment on above: Performed By: #### C BC, BMP #### [address] Urea nitrogen [Mass/Vol] 17 mg/dL Normal 9-23 [facility] Comment on above: Performed By: #### C BC, BMP #### [address] Complete Blood Count Auto Di ffon 10-15-2021 Basophils (Bld) [#/Vol] 0.0 10*3/uL Normal 0.0-0.2 [facility] Comment on above: Result Comment: PERF ORMED BY: [place] [address] PATHOLOGIST HAND LEATHER TRIMMER CLAIRE ANTHONY M.D. Performed By: #### C BC, BMP #### [place] [address] [place] Basophils/100 WBC (Bld) 0.4 % Normal . [facility] Comment on above: Performed By: #### C BC, BMP #### [facility] [address] [place] [address] [place] Eosinophils (Bld) [#/Vol] 0.1 10*3/uL Normal 0.0-0.45 [facility] Comment on above: Performed By: #### C BC, BMP #### [facility] [address] Eosinophils/100 WBC (Bld) 2.1 % Normal . [facility] Comment on above: Performed By: #### C BC, BMP #### [address] Erythrocyte distribution width (RBC) [Ratio] 13.0 % Normal 11.9-15.3 [facility] Comment on above: Performed By: #### C BC, BMP #### [address] Hematocrit (Bld) [Volume fraction] 36.8 % Normal 34.0-46.4 [facility] Comment on above: Performed By: #### C BC, BMP #### [address] Hemoglobin (Bld) [Mass/Vol] 12.4 g/dL Normal 11.8-15.4 [facility] Comment on above: Performed By: #### C BC, BMP #### [place] [address] [place] Lymphocytes (Bld) [#/Vol] 0.5 10*3/uL Low 1.00-4.8 [facility] Comment on above: Performed By: #### C BC, BMP #### [place] [address] [place] Lymphocytes/100 WBC (Bld) 18.8 % Normal . [facility] Comment on above: Performed By: #### C BC, BMP #### [address] MCH (RBC) [Entitic mass] 31.3 pg Normal 24.7-34.3 [facility] Comment on above: Performed By: #### C BC, BMP #### [facility] [address] MCV (RBC) [Entitic vol] 92.8 fL Normal 80-100 [facility] Comment on above: Performed By: #### C BC, BMP #### [facility] [address] Mean Corpuscular HGB Conc 33.7 g/dL Normal 32.0-35.0 [facility] Comment on above: Performed By: #### C BC, BMP #### [facility] [address] [place] [address] [place] Monocytes (Bld) [#/Vol] 0.3 10*3/uL Normal 0.0-0.8 [facility] Comment on above: Performed By: #### C SANTANA, BMP #### [address] Monocytes/100 WBC (Bld) 10.8 % Normal . [facility] Comment on above: Performed By: #### C BC, BMP #### [place] [address] [place] Neutrophils (Bld) [#/Vol] 1.9 10*3/uL Normal 1.8-7.7 [facility] Comment on above: Performed By: #### C BC, BMP #### [address] Neutrophils/100 WBC (Bld) 67.9 % Normal . [facility] Comment on above: Performed By: #### C BC, BMP #### [facility] [address] [place] [address] [place] Nucleated RBC/100 WBC (Bld) [Ratio] 0.1 % Normal 0-0.5 [facility] Comment on above: Performed By: #### C BC, BMP #### [address] Platelet mean volume (Bld) [Entitic vol] 7.4 fL Normal 6.3-10.7 [facility] Comment on above: Performed By: #### C BC, BMP #### [address] [place] [address] [place] Platelets (Bld) [#/Vol] 198 10*3/uL Normal 150-450 [facility] Comment on above: Performed By: #### C BC, BMP #### [address] RBC (Bld) [#/Vol] 3.97 10*6/uL Normal 3.60-5.00 [facility] Comment on above: Performed By: #### C BC, BMP #### [place] [address] [place] WBC (Bld) [#/Vol] 2.8 10*3/uL Low 4.5-11.0 [facility] Comment on above: Performed By: #### C SANTANA, BMP #### [place] [address] [place] Dipstick and Microscopicon 1 12-15-2020 Appearance (U) Turbid Critically abnormal Clear [facility] Comment on above: Order Comment: Name Collection Type:: Clean-Voided Midstream Performed By: #### A DDONUAPLUS #### [place] [address] [place] Bacteria,Urine None Seen Normal None Seen [facility] Comment on above: Order Comment: Name Collection Type:: Clean-Voided Midstream Performed By: #### A DDONUAPLUS #### [place] [address] [place] Bilirubin,Urine Negative Normal Negative [facility] Comment on above: Order Comment: Name Collection Type:: Clean-Voided Midstream Performed By: #### A DDONUAPLUS #### [place] [address] [place] Color (U) Yellow Normal Yellow [facility] Comment on above: Order Comment: Name Collection Type:: Clean-Voided Midstream Performed By: #### A DDONUAPLUS #### [place] [address] [place] Glucose Ql (U) Normal Normal Normal [facility] Comment on above: Order Comment: Name Collection Type:: Clean-Voided Midstream Performed By: #### A DDONUAPLUS #### [facility] [address] [place] [address] [place] Hyaline Casts,Urine None Seen Normal 0-8 [facility] Comment on above: Order Comment: Name Collection Type:: Clean-Voided Midstream Result Comment: PERF ORMED BY: [place] [address] PATHOLOGIST HAND LEATHER TRIMMER CLAIRE ANTHONY M.D. Performed By: #### A DDONUAPLUS #### [address] Ketones Ql (U) Negative Normal Negative [facility] Comment on above: Order Comment: Name Collection Type:: Clean-Voided Midstream Performed By: #### A DDONUAPLUS #### [address] Leukocyte esterase Test strip Ql (U) 1+ High Negative [facility] Comment on above: Order Comment: Name Collection Type:: Clean-Voided Midstream Performed By: #### A DDONUAPLUS #### [place] [address] [place] Nitrite,Urine Negative Normal Negative [facility] Comment on above: Order Comment: Name Collection Type:: Clean-Voided Midstream Performed By: #### A DDONUAPLUS #### [place] [address] [place] Occult Blood,Urine Negative Normal Negative [facility] Comment on above: Order Comment: Name Collection Type:: Clean-Voided Midstream Result Comment: PERF ORMED BY: [place] [address] PATHOLOGIST HAND LEATHER TRIMMER CLAIRE ANTHONY M.D. Performed By: #### A DDONUAPLUS #### [facility] [address] [place] [address] [place] pH (U) 7.5 [pH] Normal 5.0-9.0 [facility] Comment on above: Order Comment: Name Collection Type:: Clean-Voided Midstream Performed By: #### A DDONUAPLUS #### [facility] [address] [place] [address] [place] Protein,Urine Negative Normal Negative [facility] Comment on above: Order Comment: Name Collection Type:: Clean-Voided Midstream Performed By: #### A DDONUAPLUS #### [address] RBC,Urine 1-2 Normal 0-4 [facility] Comment on above: Order Comment: Name Collection Type:: Clean-Voided Midstream Performed By: #### A DDONUAPLUS #### [address] Specificy [place],Urine 1.017 Normal 1.001-1.030 [facility] Comment on above: Order Comment: Name Collection Type:: Clean-Voided Midstream Performed By: #### A DDONUAPLUS #### [address] Squamous Epithelial Cell,Urine None Seen Normal 0-2 [facility] Comment on above: Order Comment: Name Collection Type:: Clean-Voided Midstream Performed By: #### A DDONUAPLUS #### [address] Urobilinogen,Urine Normal Normal Normal [facility] Comment on above: Order Comment: Name Collection Type:: Clean-Voided Midstream Performed By: #### A DDONUAPLUS #### [facility] [address] [place] [address] [place] WBC,Urine 3-4 Normal 0-4 [facility] Comment on above: Order Comment: Name Collection Type:: Clean-Voided Midstream Performed By: #### A DDONUAPLUS #### [address] PST Type and Screenon 2020 ABO and Rh group Nom (Bld) Blood group O Rh(D) positive Normal [facility] Comment on above: Order Comment: Date of Surgery: [id number] # of PRBC units on hold?: 2 Result Comment: PERF ORMED BY: [place] [id number] PATHOLOGIST HAND LEATHER TRIMMER CLAIRE ANTHONY M.D. XR hip RT min 2V(w/wo pelvis )*on 10-15-2021 XR hip RT min 2V(w/wo pelvis)* [facility] Main [address] [address] XRay Report Signed Patient: Isabel Waddell MR#: [id number] : 1960 Acct:[id number] Age/Sex: 61 / F ADM Date: 10/15/21 [...] M.D.10/15/2021 2:21 PM Dictation Location: [place] [address] Transcribed By: [facility] 10/15/21 142 Dictated By: Yusef Fernandez DO 10/15/21 1420 Signed By: 10/15/21 142 Normal [facility] XR tibia/fibula BIon 021 XR tibia/fibula BI [facility] Main [address] [address] XRay Report Signed Patient: Isabel Waddell MR#: [id number] : 1960 Acct:[id number] Age/Sex: 61 / F ADM Date: 08/22/21 Loc: ICXD Room: Type: [facility] CLI Attending Dr: Mary Gatica Jr, DO Ordering Provider: Mary Gatica Jr, DO Date of Service: 08/22/21 XR/XR femur BI: PST ([id number]) XR/XR tibia/fibula BI: PST Copies to: Mary [...] Mckayla Rai M.D.08/22/2021 3:17 PM Dictation Location: [place] [address] Transcribed By: [facility] 08/22/211516 Dictated By: Mckayla Rai MD 08/22/211512 Signed By: 08/22/211516 Normal [facility] Basic Metabolic Panelon 10-0 Calcium [Mass/Vol] 9.1 mg/dL Normal 8.2-10.2 [facility] Comment on above: Result Comment: PERF ORMED BY: [address] [place] [address] PATHOLOGIST HAND LEATHER TRIMMER CLAIRE ANTHONY M.D. Performed By: #### C BC, BMP #### [facility] [address] [place] [address] [place] Chloride [Moles/Vol] 102 mmol/L Normal 95-114 [facility] Comment on above: Performed By: #### C BC, BMP #### [facility] [address] [place] [address] [place] CO2 [Moles/Vol] 27.8 mmol/L Normal 22.0-30.[address] [facility] Comment on above: Performed By: #### C BC, BMP #### [facility] [address] Creatinine [Mass/Vol] 0.63 mg/dL Normal 0.44-1.03 [facility] Comment on above: Performed By: #### C BC, BMP #### [address] Estimated GFR ( Damon > 60 Normal [facility] Comment on above: Result Comment: GFR estimated reference range: According to KDOQI guidelines, <60 ml/min/1.73m2 is sufficient to diagnose a patient with chronic kidney disease. Performed By: #### C BC, BMP #### [address] Estimated GFR (Non- Am > 60 [facility] Comment on above: Performed By: #### C BC, BMP #### [place] [address] [place] Glucose [Mass/Vol] 101 mg/dL High 70-100 [facility] Comment on above: Result Comment: [facility] Glucose Reference Range is dependent on time and content of last meal. Glucose of more than 200 mg/dL in a nonstressed, ambulatory subject supports the diagnosis of Diabetes Mellitus. ADA recommended reference range Performed By: #### C BC, BMP #### [place] [address] [place] Potassium [Moles/Vol] 4.2 mmol/L Normal 3.5-5.1 [facility] Comment on above: Performed By: #### C BC, BMP #### [place] [id number] [place] Sodium [Moles/Vol] 138 mmol/L Normal 136-146 [facility] Comment on above: Performed By: #### C BC, BMP #### [address] Urea nitrogen [Mass/Vol] 18 mg/dL Normal 9-23 [facility] Comment on above: Performed By: #### C BC, BMP #### [address] Complete Blood Count Auto Di ffon 08-20-2021 Basophils (Bld) [#/Vol] 0.0 10*3/uL Normal 0.0-0.2 [facility] Comment on above: Result Comment: PERF ORMED BY: [place] [address] PATHOLOGIST HAND LEATHER TRIMMER CLAIRE ANTHONY M.D. Performed By: #### C BC, BMP #### [address] Basophils/100 WBC (Bld) 0.1 % Normal . [facility] Comment on above: Performed By: #### C BC, BMP #### [address] Eosinophils (Bld) [#/Vol] 0.1 10*3/uL Normal 0.0-0.45 [facility] Comment on above: Performed By: #### C BC, BMP #### [address] Eosinophils/100 WBC (Bld) 2.5 % Normal . [facility] Comment on above: Performed By: #### C BC, BMP #### [address] Erythrocyte distribution width (RBC) [Ratio] 13.6 % Normal 11.9-15.3 [facility] Comment on above: Performed By: #### C BC, BMP #### [address] Hematocrit (Bld) [Volume fraction] 34.5 % Normal 34.0-46.4 [facility] Comment on above: Performed By: #### C BC, BMP #### [address] Hemoglobin (Bld) [Mass/Vol] 11.9 g/dL Normal 11.8-15.4 [facility] Comment on above: Performed By: #### C BC, BMP #### [address] Lymphocytes (Bld) [#/Vol] 0.6 10*3/uL Low 1.00-4.8 [facility] Comment on above: Performed By: #### C BC, BMP #### [address] Lymphocytes/100 WBC (Bld) 15.9 % Normal . [facility] Comment on above: Performed By: #### C BC, BMP #### [address] MCH (RBC) [Entitic mass] 31.3 pg Normal 24.7-34.3 [facility] Comment on above: Performed By: #### C BC, BMP #### [address] MCV (RBC) [Entitic vol] 90.5 fL Normal 80-100 [facility] Comment on above: Performed By: #### C BC, BMP #### [address] Mean Corpuscular HGB Conc 34.6 g/dL Normal 32.0-35.0 [facility] Comment on above: Performed By: #### C BC, BMP #### [address] Monocytes (Bld) [#/Vol] 0.5 10*3/uL Normal 0.0-0.8 [facility] Comment on above: Performed By: #### C BC, BMP #### [address] Monocytes/100 WBC (Bld) 13.2 % Normal . [facility] Comment on above: Performed By: #### C BC, BMP #### [address] Neutrophils (Bld) [#/Vol] 2.7 10*3/uL Normal 1.8-7.7 [facility] Comment on above: Performed By: #### C BC, BMP #### [address] Neutrophils/100 WBC (Bld) 68.3 % Normal . [facility] Comment on above: Performed By: #### C SANTANA, BMP #### [address] Nucleated RBC/100 WBC (Bld) [Ratio] 0.1 % Normal 0-0.5 [facility] Comment on above: Performed By: #### C SANTANA, BMP #### [address] Platelet mean volume (Bld) [Entitic vol] 7.8 fL Normal 6.3-10.7 [facility] Comment on above: Performed By: #### C SANTANA, BMP #### [address] Platelets (Bld) [#/Vol] 182 10*3/uL Normal 150-450 [facility] Comment on above: Performed By: #### C SANTANA, BMP #### [address] RBC (Bld) [#/Vol] 3.81 10*6/uL Normal 3.60-5.00 [facility] Comment on above: Performed By: #### C SANTANA, BMP #### [address] WBC (Bld) [#/Vol] 4.0 10*3/uL Low 4.5-11.0 [facility] Comment on above: Performed By: #### C SANTANA, BMP #### [address] Dipstick and Microscopicon 1 Appearance (U) Turbid Critically abnormal Clear [facility] Comment on above: Order Comment: Comme nt urine C S if indicated by UA Name Collection Type:: Clean-Voided Midstream Performed By: #### A DDONUAPLUS #### [address] Bacteria,Urine None Seen Normal None Seen [facility] Comment on above: Order Comment: Comme nt urine C S if indicated by UA Name Collection Type:: Clean-Voided Midstream Performed By: #### A DDONUAPLUS #### [facility] [address] [place] [address] Bilirubin,Urine Negative Normal Negative [facility] Comment on above: Order Comment: Comme nt urine C S if indicated by UA Name Collection Type:: Clean-Voided Midstream Performed By: #### A DDONUAPLUS #### [facility] [address] [place] [address] Color (U) Yellow Normal Yellow [facility] Comment on above: Order Comment: Comme nt urine C S if indicated by UA Name Collection Type:: Clean-Voided Midstream Performed By: #### A DDONUAPLUS #### [facility] [address] [place] [address] Glucose Ql (U) Normal Normal Normal [facility] Comment on above: Order Comment: Comme nt urine C S if indicated by UA Name Collection Type:: Clean-Voided Midstream Performed By: #### A DDONUAPLUS #### [address] Hyaline Casts,Urine 0-8 Normal 0-8 [facility] Comment on above: Order Comment: Comme nt urine C S if indicated by UA Name Collection Type:: Clean-Voided Midstream Result Comment: PERF ORMED BY: [place] [address] PATHOLOGIST HAND LEATHER TRIMMER CLAIRE ANTHONY M.D. Performed By: #### A DDONUAPLUS #### [facility] [address] [place] [address] Ketones Ql (U) Negative Normal Negative [facility] Comment on above: Order Comment: Comme nt urine C S if indicated by UA Name Collection Type:: Clean-Voided Midstream Performed By: #### A DDONUAPLUS #### [facility] [address] [place] [address] Leukocyte esterase Test strip Ql (U) 3+ High Negative [facility] Comment on above: Order Comment: Comme nt urine C S if indicated by UA Name Collection Type:: Clean-Voided Midstream Performed By: #### A DDONUAPLUS #### [facility] [address] [place] [address] Nitrite,Urine Negative Normal Negative [facility] Comment on above: Order Comment: Comme nt urine C S if indicated by UA Name Collection Type:: Clean-Voided Midstream Performed By: #### A DDONUAPLUS #### [address] Occult Blood,Urine Negative Normal Negative [facility] Comment on above: Order Comment: Comme nt urine C S if indicated by UA Name Collection Type:: Clean-Voided Midstream Result Comment: PERF ORMED BY: [place] [address] PATHOLOGIST HAND LEATHER TRIMMER CLAIRE ANTHONY M.D. Performed By: #### A DDONUAPLUS #### [address] pH (U) 8.5 [pH] Normal 5.0-9.0 [facility] Comment on above: Order Comment: Comme nt urine C S if indicated by UA Name Collection Type:: Clean-Voided Midstream Performed By: #### A DDONUAPLUS #### [address] Protein,Urine Negative Normal Negative [facility] Comment on above: Order Comment: Comme nt urine C S if indicated by UA Name Collection Type:: Clean-Voided Midstream Performed By: #### A DDONUAPLUS #### [facility] [address] [place] [address] RBC,Urine 3-4 Normal 0-4 [facility] Comment on above: Order Comment: Comme nt urine C S if indicated by UA Name Collection Type:: Clean-Voided Midstream Performed By: #### A DDONUAPLUS #### [address] Specificy [place],Urine 1.016 Normal 1.001-1.030 [facility] Comment on above: Order Comment: Comme nt urine C S if indicated by UA Name Collection Type:: Clean-Voided Midstream Performed By: #### A DDONUAPLUS #### [facility] [address] [place] [address] Squamous Epithelial Cell,Urine 0-1 Normal 0-2 [facility] Comment on above: Order Comment: Comme nt urine C S if indicated by UA Name Collection Type:: Clean-Voided Midstream Performed By: #### A DDONUAPLUS #### [address] Urobilinogen,Urine Normal Normal Normal [facility] Comment on above: Order Comment: Comme nt urine C S if indicated by UA Name Collection Type:: Clean-Voided Midstream Performed By: #### A DDONUAPLUS #### [address] WBC,Urine 20-49 High 0-4 [facility] Comment on above: Order Comment: Comme nt urine C S if indicated by UA Name Collection Type:: Clean-Voided Midstream Performed By: #### A DDONUAPLUS #### [address] ECG 12 lead ECGon 08-20-2021 ECG 12 lead ECG [facility] [place] [address] [place] [address] Electrocardiograph Report Signed Patient: Isabel Waddell MR#: [id number] : 1960 Acct:[id number] Age/Sex: 61 / F ADM Date: 08/20/21 [...] (183) on 08/20/2021 4:50:03 PM Referred By: EN Electronically Signed By:YUSEF GIRALDO DO Transcribed By: MUS Signed By Yusef Giraldo DO 08/20 1650 Normal [facility] PST Type and Screenon 2020 ABO and Rh group Nom (Bld) Blood group O Rh(D) positive [facility] Comment on above: Order Comment: Date of Surgery: [id number] # of PRBC units on hold?: 2 Result Comment: PERF ORMED BY: [facility] [address] [place] [address] PATHOLOGIST HAND LEATHER TRIMMER CLAIRE ANTHONY M.D. Urine Cultureon 08-20-2021 Bacteria identified Cx Nom (U) Comment do C S if indicated by UA ORGANISM: Staphylococcus aureus (O:STAAUR) Sidney Count 30,000 Aerobic MARELY Charge (PC45) --- [...] RESISTANT TO ALL B-LACTAM DRUGS. PERFORMED BY: [facility] [address] [place] [address] PATHOLOGIST HAND LEATHER TRIMMER CLAIRE ANTHONY M.D. [facility] Comment on above: Performed By: #### C UU #### [facility] [address] [id number] [place] Cult,Urineon 07-08-2021 Cult,Urine Specimen Description .URINE Special Requests NOT REPORTED Culture NO SIGNIFICANT GROWTH Report Status FINAL 07/08/2021 [facility] Comment on above: Performed By: #### U RC #### [facility] [address] [place] [address] Cardiothoracic Surgeon: Rei Jules MD [facility] [address] [place] [address] Cardiothoracic Surgeon: Jacob Campos MD CBC Auto DifferentialOrdered By: Mayra Michel on 07-07-2021 Absolute Eos # 0.70 High [facility] Work Phone: Absolute Immature Granulocyte NOT REPORTED [facility] Work Phone: Absolute Lymph # 0.40 Low [facility] Work Phone: Absolute U[place]hur # 0.50 [facility] Work Phone: Basophils (Bld) [#/Vol] 0.00 10*3/uL [facility] Work Phone: Basophils/100 WBC (Bld) 1 % 0 - 2 % [facility] Work Phone: Differential Type YES [facility] Work Phone: Eosinophils/100 WBC (Bld) 14 % High 0 - 5 % [facility] Work Phone: Hematocrit (Bld) [Volume fraction] 40.1 % 36 - 46 % [facility] Work Phone: Hemoglobin.gastrointes tinal spec 1 Ql (Stl) 13.8 g/dL 12.0 - 16.0 g/dL [employer] Phone: Immature Granulocytes NOT REPORTED 0 % [employer] Work Phone: Interpretation and review of laboratory results Abnormal [employer] Phone: Lymphocytes/100 WBC (Bld) 8 % Low 15 - 40 % [employer] Phone: MCH (RBC) [Entitic mass] 30.7 pg 26 - 34 pg [employer] Phone: MCHC (RBC) [Mass/Vol] 34.5 g/dL 31 - 37 g/dL [employer] Phone: MCV (RBC) [Entitic vol] 89.1 fL 80 - 100 fL [employer] Phone: Monocytes/100 WBC (Bld) 10 % High 4 - 8 % [employer] Phone: NRBC Automated NOT REPORTED per 100 [employer] [employer] Work Phone: Platelet distribution width (Bld) [Ratio] 13.0 % 12.1 - 15.2 % [employer] Phone: Platelet Estimate NOT REPORTED [employer] Phone: Platelet mean volume (Bld) [Entitic vol] NOT REPORTED 6.0 - 12.0 fL [employer] Phone: Platelets (Bld) [#/Vol] 157 10*3/uL [employer] Phone: RBC (Bld) [#/Vol] 4.50 10*6/uL 4.0 - 5.2 m/uL [employer] Phone: RBC (Bld) [#/Vol] NOT REPORTED [employer] Phone: Segmented neutrophils/100 WBC (Bld) 67 % 47 - 75 % [employer] Work Phone: Segs Absolute 3.40 [facility] Work Phone: WBC (Bld) [#/Vol] 5.1 10*3/uL [facility] Work Phone: WBC (Bld) [#/Vol] NOT REPORTED [facility] Work Phone: [facility] Work Phone: CBC with Diffon 07-07-2021 Abs. Basophil 0.00 k/uL Normal 0.0-0.2 [facility] Comment on above: Performed By: #### C DP, CP #### [facility] [address] [phone] Cardiothoracic Surgeon: Jacob Campos MD Abs.Neutrophil (Seg) 3.40 k/uL Normal 2.5-7.0 [facility] Comment on above: Performed By: #### C DP, CP #### [facility] [address] [phone] Cardiothoracic Surgeon: Jacob Campos MD Auto Diff Performed YES Normal [facility] Comment on above: Performed By: #### C DP, CP #### [facility] [address] [place], [place] [phone] Cardiothoracic Surgeon: Jacob Campos MD Basophils/100 WBC (Bld) 1 % Normal 0-2 [facility] Comment on above: Performed By: #### C DP, CP #### [facility] [address] [place], [place] [phone] Cardiothoracic Surgeon: Jacob Campos MD Eosinophils (Bld) [#/Vol] 0.70 10*3/uL High 0.0-0.4 [facility] Comment on above: Performed By: #### C DP, CP #### [facility] [address] [place] [address] Cardiothoracic Surgeon: Jacob Campos MD Eosinophils/100 WBC (Bld) 14 % High 0-5 [facility] Comment on above: Performed By: #### C DP, CP #### [facility] [address] [phone] Cardiothoracic Surgeon: Jacob Campos MD Erythrocyte distribution width (RBC) [Ratio] 13.0 % Normal 12.1-15.2 [facility] Comment on above: Performed By: #### C DP, CP #### [facility] [address] [phone] Cardiothoracic Surgeon: Jacob Campos MD Hematocrit (Bld) [Volume fraction] 40.1 % Normal 36-46 [facility] Comment on above: Performed By: #### C DP, CP #### [facility] [address] [phone] Cardiothoracic Surgeon: Jacob Campos MD Hemoglobin (Bld) [Mass/Vol] 13.8 g/dL Normal 12.0-16.0 [facility] Comment on above: Performed By: #### C DP, CP #### [facility] [address] [phone] Cardiothoracic Surgeon: Jacob Campos MD Lymphocytes (Bld) [#/Vol] 0.40 10*3/uL Low 1.0-4.8 [facility] Comment on above: Performed By: #### C DP, CP #### [facility] [address] [place] [address] Cardiothoracic Surgeon: Jacob Campos MD Lymphocytes/100 WBC (Bld) 8 % Low 15-40 [facility] Comment on above: Performed By: #### C DP, CP #### [facility] [address] [place] [phone] Cardiothoracic Surgeon: Jacob Campos MD MCH (RBC) [Entitic mass] 30.7 pg Normal 26-34 [facility] Comment on above: Performed By: #### C DP, CP #### [facility] [address] [place] [address] Cardiothoracic Surgeon: Jacob Campos MD MCHC (RBC) [Mass/Vol] 34.5 g/dL Normal 31-37 [facility] Comment on above: Performed By: #### C DP, CP #### [facility] [address] [place], [place] [phone] Cardiothoracic Surgeon: Jacob Campos MD MCV (RBC) [Entitic vol] 89.1 fL Normal 80-100 [facility] Comment on above: Performed By: #### C DP, CP #### [facility] [address] [place] [address] Cardiothoracic Surgeon: Jacob Campos MD Monocytes (Bld) [#/Vol] 0.50 10*3/uL Normal 0.0-1.0 [facility] Comment on above: Performed By: #### C DP, CP #### [facility] [address] [place], [place] [phone] ([phone] Cardiothoracic Surgeon: Jacob Campos MD Monocytes/100 WBC (Bld) 10 % High 4-8 [facility] Comment on above: Performed By: #### C DP, CP #### [facility] [address] [place] [address] Cardiothoracic Surgeon: Jacob Campos MD Neutrophil (Seg) 67 % Normal 47-75 [facility] Comment on above: Performed By: #### C DP, CP #### [facility] [address] [place] [address] Cardiothoracic Surgeon: Jacob Campos MD Platelets (Bld) [#/Vol] 157 10*3/uL Normal 140-450 [facility] Comment on above: Performed By: #### C DP, CP #### [facility] [address] [place], [place] [phone] ([phone] Cardiothoracic Surgeon: Jacob Campos MD RBC (Bld) [#/Vol] 4.50 10*6/uL Normal 4.0-5.2 [facility] Comment on above: Performed By: #### C DP, CP #### [facility] [address] [place] [address] Cardiothoracic Surgeon: Jacob Campos MD WBC (Bld) [#/Vol] 5.1 10*3/uL Normal 3.5-11.0 [facility] Comment on above: Performed By: #### C DP, CP #### [facility] [address] [place], [place] [phone] Cardiothoracic Surgeon: Jacob Campos MD Abs.Imm.Granulocyte NOT REPORTED Normal 0.00-0.30 [facility] Comment on above: Performed By: #### C DP, CP #### [facility] [address] [place] [address] Cardiothoracic Surgeon: Jacob Campos MD Immature Granulocyte NOT REPORTED Normal 0 [facility] Comment on above: Performed By: #### C DP, CP #### [facility] [address] [place] [address] Cardiothoracic Surgeon: Jacob Campos MD MPV NOT REPORTED Normal 6.0-12.0 [facility] Comment on above: Performed By: #### C DP, CP #### [facility] [address] [place], [place] [phone] Cardiothoracic Surgeon: Jacob Campos MD NRBC Automated NOT REPORTED Normal [facility] Comment on above: Performed By: #### C DP, CP #### [facility] [address] [place] [address] Cardiothoracic Surgeon: Jacob Campos MD Platelet Estimate NOT REPORTED Normal [facility] Comment on above: Performed By: #### C DP, CP #### [facility] [address] [place], [place] [phone] Cardiothoracic Surgeon: Jacob Campos MD RBC morphology finding Nom (Bld) NOT REPORTED Normal [facility] Comment on above: Performed By: #### C DP, CP #### [facility] [address] [place] [address] Cardiothoracic Surgeon: Jacob Campos MD WBC Morphology NOT REPORTED Normal [facility] Comment on above: Performed By: #### C DP, CP #### [facility] [address] [place] [address] Cardiothoracic Surgeon: Jacob Campos MD Comp Metabolic Profon 2020 (cont.) Normal [facility] Comment on above: Result Comment: Aver age GFR for 60-69 years old: 85 mL/min/1.73sq m Chronic Kidney Disease: <60 mL/min/1.73sq m Kidney failure: <15 mL/min/1.73sq m eGFR calculated using average adult body mass. Additional eGFR calculator available at: http://www.CareTree/multiple_crcl_2012.htm Performed By: #### C DP, CP #### [facility] [address] [place] [address] Cardiothoracic Surgeon: Jacob Campos MD Albumin [Mass/Vol] 3.9 g/dL Normal 3.5-5.2 [facility] Comment on above: Performed By: #### C DP, CP #### [facility] [address] [place] [address] Cardiothoracic Surgeon: Jacob Campos MD Alkaline Phos 94 U/L Normal 35-104 [facility] Comment on above: Performed By: #### C DP, CP #### [facility] [address] [place] [address] Cardiothoracic Surgeon: Jacob Campos MD ALT [Catalytic activity/Vol] 31 U/L Normal 5-33 [facility] Comment on above: Performed By: #### C DP, CP #### [facility] [address] [place], [place] [phone] Cardiothoracic Surgeon: Jacob Campos MD Anion gap [Moles/Vol] 10 mmol/L Normal 9-17 [facility] Comment on above: Performed By: #### C DP, CP #### [facility] [address] [place], [place] [phone] Cardiothoracic Surgeon: Jacob Campos MD AST [Catalytic activity/Vol] 28 U/L Normal <32 [facility] Comment on above: Performed By: #### C DP, CP #### [facility] [address] [place], [place] [phone] Cardiothoracic Surgeon: Jacob Campos MD Bilirubin [Mass/Vol] 0.46 mg/dL Normal 0.30-1.20 [facility] Comment on above: Performed By: #### C DP, CP #### [facility] [address] [place], [place] [phone] Cardiothoracic Surgeon: Jacob Campos MD BUN/CRE Ratio 27 High 9-20 [facility] Comment on above: Performed By: #### C DP, CP #### [facility] [address] [place], [place] 2[address] Cardiothoracic Surgeon: Jacob Campos MD Calcium [Mass/Vol] 9.7 mg/dL Normal 8.6-10.4 [facility] Comment on above: Performed By: #### C DP, CP #### [facility] [address] [place], [place] [phone] Cardiothoracic Surgeon: Jacob Campos MD Chloride [Moles/Vol] 107 mmol/L Normal 98-107 [facility] Comment on above: Performed By: #### C DP, CP #### [facility] [address] [place], [place] [phone] Cardiothoracic Surgeon: Jacob Campos MD CO2 [Moles/Vol] 25 mmol/L Normal 20-31 [facility] Comment on above: Performed By: #### C DP, CP #### [facility] [address] [place], [place] [phone] Cardiothoracic Surgeon: Jacob Campos MD Creatinine [Mass/Vol] 0.60 mg/dL Normal 0.50-0.90 [facility] Comment on above: Performed By: #### C DP, CP #### [facility] [address] [place], [place] [phone] Cardiothoracic Surgeon: Jacob Campos MD GFR, Amer >60 Normal >60 [facility] Comment on above: Performed By: #### C DP, CP #### [facility] [address] [place], [place] [phone] Cardiothoracic Surgeon: Jacob Campos MD GFR,non Amer >60 Normal >60 [facility] Comment on above: Performed By: #### C DP, CP #### [facility] [address] [place], [place] [phone] Cardiothoracic Surgeon: Jacob Campos MD Glucose [Mass/Vol] 122 mg/dL High 70-99 [facility] Comment on above: Performed By: #### C DP, CP #### [facility] [address] [place], [place] [phone] Cardiothoracic Surgeon: Jacob Campos MD Potassium [Moles/Vol] 3.8 mmol/L Normal 3.7-5.3 [facility] Comment on above: Performed By: #### C DP, CP #### [facility] [address] [place], [place] [phone] Cardiothoracic Surgeon: Jacob Campos MD Protein [Mass/Vol] 6.9 g/dL Normal 6.4-8.3 [facility] Comment on above: Performed By: #### C DP, CP #### [facility] [address] [place], [place] [phone] Cardiothoracic Surgeon: Jacob Campos MD Sodium [Moles/Vol] 142 mmol/L Normal 135-144 [facility] Comment on above: Performed By: #### C DP, CP #### [facility] [address] [place], [place] [phone] Cardiothoracic Surgeon: Jacob Campos MD Urea nitrogen [Mass/Vol] 16 mg/dL Normal 8-23 [facility] Comment on above: Performed By: #### C DP, CP #### [facility] [address] [place], [place] [phone] Cardiothoracic Surgeon: Jacob Campos MD Albumin/Glob Ratio NOT REPORTED Normal 1.0-2.5 [facility] Comment on above: Performed By: #### C DP, CP #### [facility] [address] [place], [place] [phone] Cardiothoracic Surgeon: Jaocb Campos MD Staging: NOT REPORTED Normal [facility] Comment on above: Performed By: #### C DP, CP #### [facility] [address] [place], [place] [phone] Cardiothoracic Surgeon: Jacob Campos MD Comprehensive Metabolic Pane lOrdered By: Mayra Michel on 07-07-2021 Albumin [Mass/Vol] 3.9 g/dL 3.5 - 5.2 g/dL [employer] Phone: Albumin/Globulin Ratio NOT REPORTED [employer] Phone: ALP (Bld) [Catalytic activity/Vol] 94 U/L 35 - 104 U/L [employer] Phone: ALT [Catalytic activity/Vol] 31 U/L 5 - 33 U/L [employer] Phone: Anion gap [Moles/Vol] 10 mmol/L 9 - 17 mmol/L [employer] Phone: AST [Catalytic activity/Vol] 28 U/L <32 [employer] Phone: Bilirubin [Mass/Vol] 0.46 mg/dL 0.30 - 1.20 mg/dL [employer] Phone: Calcium [Mass/Vol] 9.7 mg/dL 8.6 - 10. 4 mg/dL [employer] Phone: Chloride [Moles/Vol] 107 mmol/L 98 - 10 7 mmol/L [employer] Phone: CO2 [Moles/Vol] 25 mmol/L 20 - 31 mmol/L [employer] Phone: Creatinine [Mass/Vol] 0.6 mg/dL 0.50 - 0.90 mg/dL [employer] Phone: Free PSA/Total PSA [Mass fraction] 6.9 g/dL 6.4 - 8.3 g/dL [employer] Phone: GFR >60 >60 mL/min [employer] Phone: GFR Non- >60 >60 mL/min [employer] Phone: GFR/1.73 sq M.predicted MDRD (S/P/Bld) [Vol rate/Area] [employer] Phone: Comment on above: Average GFR for 60-6 9 years old: 85 mL/min/1.73sq m Chronic Kidney Disease: <60 mL/min/1.73sq m Kidney failure: <15 mL/min/1.73sq m eGFR calculated using average adult body mass. Additional eGFR calculator available at: http://www.[employer] ADEX/multiple_crcl_2012.htm GFR/1.73 sq M.predicted MDRD (S/P/Bld) [Vol rate/Area] NOT REPORTED [employer] Phone: Glucose [Mass/Vol] 122 mg/dL High 70 - 99 mg/dL [employer] Phone: Interpretation and review of laboratory results Abnormal [employer] Phone: Potassium [Moles/Vol] 3.8 mmol/L 3.7 - 5.3 mmol/L [facility] Work Phone: Sodium [Moles/Vol] 142 mmol/L 135 - 144 mmol/L [facility] Work Phone: Urea nitrogen (BldV) [Mass/Vol] 16 mg/dL 8 - 23 mg/dL [facility] Work Phone: Urea nitrogen/Creatinine (Bld) [Mass ratio] 27 High [facility] Work Phone: [facility] Work Phone: Microscopic UrinalysisOrdere d By: Mayra Michel on 07-07-2021 - [facility] Work Phone: Amorphous, UA NOT REPORTED None [facility] Work Phone: Bacteria, UA 2+ Abnormal None [facility] Work Phone: Casts UA NOT REPORTED /LPF [facility] Work Phone: Crystals, UA NOT REPORTED None /HPF [facility] Work Phone: Epithelial Cells UA 5 TO 10 /HPF [facility] Work Phone: Interpretation and review of laboratory results Abnormal [facility] Work Phone: Mucus, UA 1+ Abnormal None [facility] Work Phone: Other Observations UA NOT REPORTED NOT REQ. M [facility] Work Phone: RBC, UA 5 TO 10 [facility] Work Phone: Renal Epithelial, UA NOT REPORTED 0 /HPF [facility] [employer] Work Phone: Trichomonas, UA NOT REPORTED None [facility] Work Phone: WBC, UA 2 TO 5 0 /HPF [facility] Work Phone: Yeast, UA NOT REPORTED None [employer] Work Phone: [employer] Work Phone: UrinalysisOrdered By: Olamide Michel on 07-07-2021 Bilirubin Urine Negative NEGATIVE [facility] Work Phone: Color, UA YELLOW YELLOW [employer] Work Phone: Glucose, Ur Negative NEGATIVE [employer] Work Phone: Interpretation and review of laboratory results Abnormal [employer] Work Phone: Ketones Ql (U) Negative NEGATIVE [employer] [facility] Work Phone: Leukocyte esterase Test strip Ql (U) 1+ Abnormal NEGATIVE [employer] Phone: Nitrite, Urine Negative NEGATIVE [facility] Work Phone: pH, UA 6.0 [employer] Work Phone: Protein, UA TRACE Abnormal NEGATIVE [employer] Work Phone: Specific [place], UA 1.020 [employer] Work Phone: Turbidity UA CLEAR CLEAR [employer] Work Phone: Urinalysis Comments [employer] Phone: Urine Hgb TRACE Abnormal NEGATIVE [employer] Phone: Urobilinogen, Urine Normal Normal [facility] Work Phone: [facility] Work Phone: Urinalysis, Routineon 2020 Bilirubin, SemiQt,Ur Negative Normal NEG [facility] Comment on above: Performed By: #### U MICAO, UA #### [facility] [address] [place] [address] Cardiothoracic Surgeon: Jacob Campos MD Blood, Urine TRACE Abnormal NEG [facility] Comment on above: Performed By: #### U MICAO, UA #### [facility] [address] [place] [address] Cardiothoracic Surgeon: Jacob Campos MD Clarity (U) CLEAR Normal CLEAR [facility] Comment on above: Performed By: #### U MICAO, UA #### [facility] [address] [place] [address] Cardiothoracic Surgeon: Jacob Campos MD Color (U) YELLOW Normal YEL [facility] Comment on above: Performed By: #### U MICAO, UA #### [facility] [address] [place] [address] Cardiothoracic Surgeon: Jacob Campos MD Comment Normal [facility] Comment on above: Performed By: #### U MICAO, UA #### [facility] [address] [place] [address] Cardiothoracic Surgeon: Jacob Campos MD Glucose Ql (U) Negative Normal NEG [facility] Comment on above: Performed By: #### U MICAO, UA #### [facility] [address] [facility], [place] [phone] Cardiothoracic Surgeon: Jacob Campos MD Ketones Ql (U) Negative Normal NEG [facility] Comment on above: Performed By: #### U MICAO, UA #### [facility] [address] [place] [address] Cardiothoracic Surgeon: Jacob Campos MD Leukocyte esterase Test strip Ql (U) 1+ Abnormal NEG [facility] Comment on above: Performed By: #### U MICAO, UA #### [facility] [address] [facility], [place] [phone] Cardiothoracic Surgeon: Jacob Campos MD Nitrite,Ur Negative Normal NEG [facility] Comment on above: Performed By: #### U MICAO, UA #### [facility] [address] [facility] [place] [phone] Cardiothoracic Surgeon: Jacob Camops MD PH,Ur 6.0 Normal 5.0-8.0 [facility] Comment on above: Performed By: #### U EULALIAO, UA #### [facility] [address] [place], [place] [phone] Cardiothoracic Surgeon: Jacob Campos MD Protein Ql (U) TRACE Abnormal NEG [facility] Comment on above: Performed By: #### U MICAO, UA #### [facility] [address] [place] [address] Cardiothoracic Surgeon: Jacob Campos MD Spec. [place],Ur 1.020 Normal 1.005-1.030 [facility] Comment on above: Performed By: #### U EULALIAO, UA #### [facility] [address] [place], [place] [phone] Cardiothoracic Surgeon: Jacob Campos MD Urobilinogen,Ur Normal Normal NORM [facility] Comment on above: Performed By: #### U MICAO, UA #### [facility] [address] [place], [place] [phone] Cardiothoracic Surgeon: Jacob Campos MD Urinalysis,Microon 1 ----- Normal [facility] Comment on above: Performed By: #### U MICAO, UA #### [facility] [address] [place] [address] Cardiothoracic Surgeon: Jacob Campos MD Bacteria 2+ Abnormal NONE [facility] Comment on above: Performed By: #### U MICAO, UA #### [facility] [address] [place], [place] [phone] Cardiothoracic Surgeon: Jacob Campos MD Epithelial cells LM Ql (Urine sed) 5 TO 10 Normal [facility] Comment on above: Performed By: #### U MICAO, UA #### [facility] [address] [place], [place] [id number] Cardiothoracic Surgeon: Jacob Campos MD Mucus Strands 1+ Abnormal NONE [facility] Comment on above: Performed By: #### U EULALIAO, UA #### [facility] [address] [place] [address] Cardiothoracic Surgeon: Jacob Campos MD Urine RBC's 5 TO 10 Normal 0-2 [facility] Comment on above: Performed By: #### U MICAO, UA #### [facility] [address] [place] [address] Cardiothoracic Surgeon: Jacob Campos MD Urine WBC's 2 TO 5 Normal 0 [facility] Comment on above: Performed By: #### U MICAO, UA #### [facility] [address] [place] [address] Cardiothoracic Surgeon: Jacob Campos MD Amorphous sediment LM Ql (Urine sed) NOT REPORTED Normal [facility] Comment on above: Performed By: #### U MICAO, UA #### [facility] [address] [place] [address] Cardiothoracic Surgeon: Jacob Campos MD Casts NOT REPORTED Normal [facility] Comment on above: Performed By: #### U MICAO, UA #### [facility] [address] [place] [address] Cardiothoracic Surgeon: Jacob Campos MD Crystals LM Nom (Urine sed) NOT REPORTED Normal [facility] Comment on above: Performed By: #### U MICAO, UA #### [facility] [address] [place] [address] Cardiothoracic Surgeon: Jacob Campos MD Epithelial, Renal NOT REPORTED Normal 0 [facility] Comment on above: Performed By: #### U MICAO, UA #### [facility] [address] [place] [address] Cardiothoracic Surgeon: Jacob Campos MD Other Observations NOT REPORTED Normal NREQ [facility] Comment on above: Performed By: #### U EULALIAO, UA #### [facility] [address] [place] [address] Cardiothoracic Surgeon: Jacob Campos MD Trichomonas NOT REPORTED Normal NONE [facility] Comment on above: Performed By: #### U MICAO, UA #### [facility] [address] [place] [address] Cardiothoracic Surgeon: Jacob Campos MD Yeast NOT REPORTED Normal NONE [facility] Comment on above: Performed By: #### U MICAO, UA #### [facility] [address] [place] [address] Cardiothoracic Surgeon: Jacob Campos MD XR hand RT min 3V*on 021 XR hand RT min 3V* [facility] Main [address] [address] XRay Report Signed Patient: Isabel Waddell MR#: [id number] : 1960 Acct:[id number] Age/Sex: 60 / F ADM Date: 03/28/21 [place] [facility] [place] Type: [facility] Attending [...] Mckayla Rai M.D.03/28/2021 1:26 PM Dictation Location: [place] [address] Transcribed By: JULIO 03/28/211325 Dictated By: Mckayla Rai MD 03/28/211320 Signed By: 03/28/211325 [facility] BIOAVAILABLE TESTOSTERONE FE MALE, Susie 11-29-2019 Albumin [Mass/Vol] 4.3 g/dL Normal 3.6-5.1 [facility] Comment on above: Result Comment: Age and Gender Specific Reference Interval Applied Interpretive Information: Total Testosterone Reference Interval (ng/dL) Premenopausal 9 - 55 Postmenopausal 5 - 32 Bioavailable Testosterone (ng/dL) Postmenopausal 1.5 - 9.4 Free Testosterone Reference Interval (pg/mL) Postmenopausal 0.6 - 3.8 This test was developed and its performance characteristics determined by [facility] ([facility]). It has not been cleared or approved by the U.S. Food and Drug Administration (FDA). The FDA has determined that such clearance or approval is not necessary. This test is used for clinical purposes and should not be regarded as investigational or for research. [facility] is qualified to perform high complexity testing under the Clinical Laboratory Improvement Amendments (CLIA). Test performed at [facility] [address] [place] [address], [address], [address] [place] [address] Distribution Systems Serviceperson: Adi Barksdale M.D. CLIA Number [id number] CAP Accreditation Number [id number] [facility] [address] [place] [address] CLIA No. [id number] CAP Accreditation No. [id number] Distribution Systems Serviceperson: Isiah Burr M.D. Performed By: #### 1 000, 4500, 4510, 4520, 89347, 5000, 21765, 98658 #### [facility] Unless Otherwise Noted [address] [address] / COLA #4724/CLIA # [id number] SEX HORM BINDING GLOBULIN 56.3 nmol/L Normal 17.3-125.0 [facility] Comment on above: Performed By: #### 1 000, 4500, 4510, 4520, 51441, 5000, 53657, 12225 #### [facility] Unless Otherwise Noted [address] [address] / COLA #4724/CLIA # [id number] TESTOSTERONE BIO FEMALE 2.9 ng/dL Normal 1.5-9.4 [facility] Comment on above: Performed By: #### 1 000, 4500, 4510, 4520, 81135, 5000, 14656, 29309 #### [facility] Unless Otherwise Noted [address] [address] / COLA #4724/CLIA # [id number] TESTOSTERONE FREE FEMALE 1.3 pg/mL Normal 0.6-3.8 [facility] Comment on above: Performed By: #### 1 000, 4500, 4510, 4520, 20985, 5000, 91857, 51875 #### [facility] Unless Otherwise Noted [address] [address] / COLA #4724/CLIA # [id number] TESTOSTERONE, ULTRASENSITIVE 10 ng/dL Normal 9-55 [facility] Comment on above: Performed By: #### 1 000, 4500, 4510, 4520, 43284, 5000, 79694, 46065 #### [facility] Unless Otherwise Noted [address] [address] / COLA #4724/CLIA # [id number] ADRENOCORTICOTROPIC HORMon 0 11-27-2019 ADRENOCORTICOTROPIC HORM 18.1 PG/ML Normal 7.2-63.3 [facility] Comment on above: Result Comment: Reference range established for normal adult patients, morning blood draw (7-10 AM). Certain synthetic ACTH fragments may interfere with this assay. Test performed at [facility] [address] [place] [address] [address] [id number] [facility] Accreditation Number [id number] ------- Performed By: #### 1 000, 4500, 4510, 4520, 07403, 5000, 76960, 69693 #### [facility] Unless Otherwise Noted [address] [place] [address] / COLA #4724/CLIA # [id number] IGF-1on 11-27-2019 IGF-1 151 NG/ML Normal 43-187 [facility] Comment on above: Result Comment: Test performed at [facility] [address] [place] [address] CLIA Number [id number] [facility] Accreditation Number [id number] ------- Performed By: #### 1 000, 4500, 4510, 4520, 57099, 5000, 42088, 54065 #### [facility] Unless Otherwise Noted [address] [place] [address] / COLA #4724/CLIA # [id number] CORTISOL Delonte 11-26-2019 CORTISOL AM 8.6 UG/DL Normal 4.5-22.7 [facility] Comment on above: Performed By: #### 1 000, 4500, 4510, 4520, 38849, 5000, 04114, 24049 #### [facility] Unless Otherwise Noted [address] [place] [address] / COLA #4724/CLIA # [id number] FSHon 11-26-2019 FSH 26.30 mlU/mL Normal [facility] Comment on above: Result Comment: REFE RENCE RANGES FOR FEMALES: OVULATING FEMALE: FOLLICULAR PHASE 1.98-11.6 PEAK 5.14-23.4 LUTEAL PHASE 1.38-9.58 POSTMENOPAUSAL FEMALE 21.5-131 Performed By: #### 4 530, 4540, 4550, 4577 #### [facility] Unless Otherwise Noted [address] [address] / COLA #4724/CLIA # [id number] LHon 11-26-2019 LH 23.00 mIU/ml Normal [facility] Comment on above: Result Comment: REFE RENCE RANGES FOR FEMALE: OVULATING FEMALE: FOLLICULAR PHASE 2.58-12.1 PEAK 27.3-96.9 LUTEAL PHASE 0.83-15.5 POSTMENOPAUSAL FEMALE 13.1-86.5 Performed By: #### 4 530, 4540, 4550, 4577 #### [facility] Unless Otherwise Noted [address] [address] / COLA #4724/CLIA # [id number] PROLACTINon 11-26-2019 PROLACTIN 17.3 ng/ml Normal 2.1-47.6 [facility] Comment on above: Result Comment: IVELISSE ENOPAUSAL FEMALE 2.1 - 47.6 POSTMENOPAUSAL FEMALE 0.0 - 41.4 Performed By: #### 1 000, 4500, 4510, 4520, 83357, 5000, 49379, 54025 #### [facility] Unless Otherwise Noted [address] [address] / COLA #4724/CLIA # [id number] CBC W/AUTO DIFFon 11-25-2019 ABS BASOPHILS 0.0 X10E9/L Normal 0-0.9 [facility] Comment on above: Result Comment: Perf ormed at [facility] [address] [facility] [address] Performed By: #### 1 000, 4500, 4510, 4520, 74424, 5000, 13083, 09616 #### [facility] Unless Otherwise Noted [address] [place] [address] / COLA #4724/CLIA # [id number] ABS NEUTROPHILS 2.6 X10E9/L Normal 1.5-6.6 [facility] Comment on above: Performed By: #### 1 000, 4500, 4510, 4520, 34094, 5000, 22590, 29503 #### [facility] Unless Otherwise Noted [address] [address] / COLA #4724/CLIA # [id number] Basophils/100 WBC (Bld) 0.6 % Normal [facility] Comment on above: Performed By: #### 1 000, 4500, 4510, 4520, 85288, 5000, 91331, 64567 #### [facility] Unless Otherwise Noted [address] [address] / COLA #4724/CLIA # [id number] Eosinophils (Bld) [#/Vol] 0.2 10*3/uL Normal 0.0-0.4 [facility] Comment on above: Performed By: #### 1 000, 4500, 4510, 4520, 86565, 5000, 00193, 83222 #### [facility] Unless Otherwise Noted [address] [address] / COLA #4724/CLIA # [id number] Eosinophils/100 WBC (Bld) 3.1 % Normal [facility] Comment on above: Performed By: #### 1 000, 4500, 4510, 4520, 93832, 5000, 37467, 47336 #### [facility] Unless Otherwise Noted [address] [place] [address] / COLA #4724/CLIA # [id number] Erythrocyte distribution width (RBC) [Ratio] 13.3 % Normal 11.5-14.7 [facility] Comment on above: Performed By: #### 1 000, 4500, 4510, 4520, 64094, 5000, 11466, 65875 #### [facility] Unless Otherwise Noted [address] [address] / COLA #4724/CLIA # [id number] Hematocrit (Bld) [Volume fraction] 39.4 % Normal 35-47 [facility] Comment on above: Performed By: #### 1 000, 4500, 4510, 4520, 05287, 5000, 52950, 24944 #### [facility] Unless Otherwise Noted [address] [address] / COLA #4724/CLIA # [id number] Hemoglobin (Bld) [Mass/Vol] 13.3 g/dL Normal 11.7-16.0 [facility] Comment on above: Performed By: #### 1 000, 4500, 4510, 4520, 05498, 5000, 42221, 58002 #### [facility] Unless Otherwise Noted [address] [place] [address] / COLA #4724/CLIA # [id number] Lymphocytes (Bld) [#/Vol] 1.8 10*3/uL Normal 1.0-3.5 [facility] Comment on above: Performed By: #### 1 000, 4500, 4510, 4520, 21215, 5000, 90120, 13430 #### [facility] Unless Otherwise Noted [address] [place] [address] / COLA #4724/CLIA # [id number] Lymphocytes/100 WBC (Bld) 35.0 % Normal [facility] Comment on above: Performed By: #### 1 000, 4500, 4510, 4520, 36053, 5000, 61889, 22297 #### [facility] Unless Otherwise Noted [address] [place] [address] / COLA #4724/CLIA # [id number] MCH (RBC) [Entitic mass] 31.2 pg Normal 26-33.5 [facility] Comment on above: Performed By: #### 1 000, 4500, 4510, 4520, 19235, 5000, 90979, 41149 #### [facility] Unless Otherwise Noted [address] [place] [address] / COLA #4724/CLIA # [id number] MCHC (RBC) [Mass/Vol] 33.7 g/dL Normal 32-36 [facility] Comment on above: Performed By: #### 1 000, 4500, 4510, 4520, 39229, 5000, 28402, 69392 #### [facility] Unless Otherwise Noted [address] [address] / COLA #4724/CLIA # [id number] MCV (RBC) [Entitic vol] 93 fL Normal 81-100 [facility] Comment on above: Performed By: #### 1 000, 4500, 4510, 4520, 74990, 5000, 45126, 52857 #### [facility] Unless Otherwise Noted [address] [address] / COLA #4724/CLIA # [id number] Monocytes (Bld) [#/Vol] 0.5 10*3/uL Normal 0-0.9 [facility] Comment on above: Performed By: #### 1 000, 4500, 4510, 4520, 16902, 5000, 53617, 85726 #### [facility] Unless Otherwise Noted [address] [address] / COLA #4724/CLIA # [id number] Monocytes/100 WBC (Bld) 10.0 % Normal [facility] Comment on above: Performed By: #### 1 000, 4500, 4510, 4520, 67809, 5000, 27433, 64712 #### [facility] Unless Otherwise Noted [address] [address] / COLA #4724/CLIA # [id number] Neutrophils/100 WBC (Bld) 51.3 % Normal [facility] Comment on above: Performed By: #### 1 000, 4500, 4510, 4520, 43779, 5000, 71354, 30701 #### [facility] Unless Otherwise Noted [address]99 [facility] [address] [place] [address] / COLA #4724/CLIA # [id number] Platelet mean volume (Bld) [Entitic vol] 8.8 fL Normal 7-12 [facility] Comment on above: Performed By: #### 1 000, 4500, 4510, 4520, 68724, 5000, 66010, 69852 #### [facility] Unless Otherwise Noted [address] [facility] [address] [place] [address] / COLA #4724/CLIA # [id number] Platelets (Bld) [#/Vol] 225 10*3/uL Normal 150-450 [facility] Comment on above: Performed By: #### 1 000, 4500, 4510, 4520, 88554, 5000, 16525, 69716 #### [facility] Unless Otherwise Noted [address] [facility] [address] [place] [address] / COLA #4724/CLIA # [id number] RBC (Bld) [#/Vol] 4.25 X10E12/L Normal 3.80-5.20 [facility] Comment on above: Performed By: #### 1 000, 4500, 4510, 4520, 44452, 5000, 18796, 83127 #### [facility] Unless Otherwise Noted [address] [facility] [address] [place] [address] / COLA #4724/CLIA # [id number] WBC (Bld) [#/Vol] 5.1 10*3/uL Normal 4.8-10.8 [facility] Comment on above: Performed By: #### 1 000, 4500, 4510, 4520, 24545, 5000, 08633, 34640 #### [facility] Unless Otherwise Noted [address] [address] / COLA #4724/CLIA # [id number] [facility] 11-25-2019 Albumin [Mass/Vol] 4.2 g/dL Normal 3.5-5.0 [facility] Comment on above: Performed By: #### 1 000, 4500, 4510, 4520, 66394, 5000, 32712, 99074 #### [facility] Unless Otherwise Noted [address] [address] / COLA #4724/CLIA # [id number] ALP [Catalytic activity/Vol] 103.0 U/L Normal 38.0-126.0 [facility] Comment on above: Performed By: #### 1 000, 4500, 4510, 4520, 08583, 5000, 05810, 30370 #### [facility] Unless Otherwise Noted [address] [address] / COLA #4724/CLIA # [id number] ALT [Catalytic activity/Vol] 62.0 U/L Normal 13.0-69.0 [facility] Comment on above: Performed By: #### 1 000, 4500, 4510, 4520, 11133, 5000, 95606, 82113 #### [facility] Unless Otherwise Noted [address] [address] / COLA #4724/CLIA # [id number] Anion gap [Moles/Vol] 4.0 mmol/L Low 10.0-15.0 End [facility] Comment on above: Performed By: #### 1 000, 4500, 4510, 4520, 49617, 5000, 09409, 52521 #### [facility] Unless Otherwise Noted [address] [address] / COLA #4724/CLIA # [id number] AST [Catalytic activity/Vol] 30.0 U/L Normal 15.0-46.0 [facility] Comment on above: Performed By: #### 1 000, 4500, 4510, 4520, 68932, 5000, 25207, 53736 #### [facility] Unless Otherwise Noted [address] [address] / COLA #4724/CLIA # [id number] Bilirubin Ql (U) 0.50 mg/dL Normal 0.20-1.30 [facility] Comment on above: Performed By: #### 1 000, 4500, 4510, 4520, 79872, 5000, 50414, 29674 #### [facility] Unless Otherwise Noted [address] [address] / COLA #4724/CLIA # [id number] BUN/Cre Ratio 32.9 Ratio High 7.0-27.0 [facility] Comment on above: Performed By: #### 1 000, 4500, 4510, 4520, 51231, 5000, 55553, 13259 #### [facility] Unless Otherwise Noted [address] [address] / COLA #4724/CLIA # [id number] Calcium [Mass/Vol] 9.5 mg/dL Normal 8.4-10.2 [facility] Comment on above: Performed By: #### 1 000, 4500, 4510, 4520, 90635, 5000, 17619, 50492 #### [facility] Unless Otherwise Noted [address] [address] / COLA #4724/CLIA # [id number] Chloride [Moles/Vol] 102.0 mmol/L Normal 98.0-107.0 [facility] Comment on above: Performed By: #### 1 000, 4500, 4510, 4520, 84601, 5000, 69919, 85694 #### [facility] Unless Otherwise Noted [address] [address] / COLA #4724/CLIA # [id number] CO2 [Moles/Vol] 31.0 mmol/L High 22.0-30.0 Endocrin [facility] Comment on above: Performed By: #### 1 000, 4500, 4510, 4520, 69229, 5000, 53922, 31921 #### [facility] Unless Otherwise Noted [address] [address] / COLA #4724/CLIA # [id number] Creatinine [Mass/Vol] 0.7 mg/dL Normal 0.5-1.0 End [facility] Comment on above: Performed By: #### 1 000, 4500, 4510, 4520, 88496, 5000, 54268, 12903 #### [facility] Unless Otherwise Noted [address] [address] / COLA #4724/CLIA # [id number] GFR/1.73 sq M predicted among blacks MDRD (S/P/Bld) [Vol rate/Area] 110.1 ml/m1.73 Normal [facility] Comment on above: Performed By: #### 1 000, 4500, 4510, 4520, 72069, 5000, 18388, 47211 #### [facility] Unless Otherwise Noted [address] [address] / COLA #4724/CLIA # [id number] GFR/1.73 sq M predicted among non-blacks MDRD (S/P/Bld) [Vol rate/Area] 91.0 ml/m1.73 Normal [facility] Comment on above: Performed By: #### 1 000, 4500, 4510, 4520, 70320, 5000, 50046, 56294 #### [facility] Unless Otherwise Noted [address] [place] [address] / COL[facility] #4724/CLIA # [id number] GFR/1.73 sq M predicted among non-blacks MDRD (S/P/Bld) [Vol rate/Area] 96.2 ml/m1.73 Normal [facility] Comment on above: Performed By: #### 1 000, 4500, 4510, 4520, 53818, 5000, 33850, 29377 #### [facility] Unless Otherwise Noted [address] [place] [address] / COLA #4724/CLIA # [id number] Glucose [Mass/Vol] 109.0 mg/dL High 74.0-106.0 [facility] Comment on above: Performed By: #### 1 000, 4500, 4510, 4520, 82375, 5000, 68138, 28901 #### [facility] Unless Otherwise Noted [address] [place] [address] / COLA #4724/CLIA # [id number] Potassium [Moles/Vol] 4.3 mmol/L Normal 3.5-5.1 End [facility] Comment on above: Performed By: #### 1 000, 4500, 4510, 4520, 29591, 5000, 14265, 06342 #### [facility] Unless Otherwise Noted [address] [address] / COLA #4724/CLIA # [id number] Protein [Mass/Vol] 6.8 g/dL Normal 6.3-8.2 Endocr [facility] Comment on above: Performed By: #### 1 000, 4500, 4510, 4520, 31943, 5000, 89540, 86917 #### [facility] Unless Otherwise Noted [address] [address] / COLA #4724/CLIA # [id number] Sodium [Moles/Vol] 137.0 mmol/L Normal 137.0-145.0 End [facility] Comment on above: Performed By: #### 1 000, 4500, 4510, 4520, 12955, 5000, 90013, 87504 #### [facility] Unless Otherwise Noted [address] [place] [address] / [facility] #4724/CLIA # [id number] Urea nitrogen [Mass/Vol] 23.0 mg/dL High 7.0-17.0 [facility] Comment on above: Performed By: #### 1 000, 4500, 4510, 4520, 56187, 5000, 54782, 61917 #### [facility] Unless Otherwise Noted [address] [address] / COLA #4724/CLIA # [id number] FT3on 11-25-2019 FT3 4.39 pg/mL Normal 2.71-6.16 [facility] Comment on above: Performed By: #### 1 000, 4500, 4510, 4520, 87036, 5000, 95728, 37887 #### [facility] Unless Otherwise Noted [address] [facility] [address] [place] [address] / COLA #4724/CLIA # [id number] FT4on 11-25-2019 Free T4 [Mass/Vol] 0.95 ng/dL Normal 0.64-1.79 End[facility] Comment on above: Performed By: #### 1 000, 4500, 4510, 4520, 62698, 5000, 08182, 37541 #### [facility] Unless Otherwise Noted [address] [address] / COLA #4724/CLIA # [id number] TSHon 11-25-2019 TSH Qn 0.35 uIU/ml Low 0.47-4.68 [facility] Comment on above: Performed By: #### 1 000, 4500, 4510, 4520, 73480, 5000, 06366, 90413 #### [facility] Unless Otherwise Noted [address] [address] / COLA #4724/CLIA # [id number] Vital Signs Date Time Vital Sign Value Performing Clinician Facility 01-05-2025 11:10-0500 Body height 167.64 cm [facility] 01-05-2025 11:10-0500 Body mass index (BMI) [Ratio] 26.4 kg/m2 [facility] 01-05-2025 11:10-0500 Body weight 74.38 kg [facility] 01-05-2025 11:10-0500 Diastolic blood pressure 84 mm[Hg] [facility] 01-05-2025 11:10-0500 Heart rate 91 /min [facility] 01-05-2025 11:10-0500 Respiratory rate 12 /min [facility] 01-05-2025 11:10-0500 Systolic blood pressure 146 mm[Hg] [facility] 11-26-2024 09:20-0500 Body height 167.64 cm [facility] 11-26-2024 09:20-0500 Body mass index (BMI) [Ratio] 25.4 kg/m2 [facility] 11-26-2024 09:20-0500 Body weight 71.66 kg [facility] 11-26-2024 09:20-0500 Diastolic blood pressure 91 mm[Hg] [facility] 11-26-2024 09:20-0500 Heart rate 97 /min [facility] 11-26-2024 09:20-0500 Respiratory rate 12 /min [facility] 11-26-2024 09:20-0500 Systolic blood pressure 159 mm[Hg] [facility] 08-05-2024 11:44-0400 Body height 167.6 cm Henry Ramos MD Work Phone: [facility] 08-05-2024 11:44-0400 Body mass index (BMI) [Ratio] 23.88 kg/m2 Henry Ramos MD Work Phone: [facility] 08-05-2024 11:44-0400 Body temperature 99 [degF] Henry Ramos MD Work Phone: [facility] 08-05-2024 11:44-0400 Body weight 67.1 kg Henry Ramos MD Work Phone: [facility] 08-05-2024 11:44-0400 Diastolic blood pressure 75 mm[Hg] Henry Ramos MD Work Phone: [facility] 08-05-2024 11:44-0400 Heart rate 81 /min Henry Ramos MD Work Phone: [facility] 08-05-2024 11:44-0400 SaO2% (BldA) [Mass fraction] 97 % Henry Ramos MD Work Phone: [facility] 08-05-2024 11:44-0400 Systolic blood pressure 141 mm[Hg] Henry Ramos MD Work Phone: [facility] 06-29-2024 11:36-0400 Body height 167.64 cm [facility] 06-29-2024 11:36-0400 Body mass index (BMI) [Ratio] 22.6 kg/m2 [facility] 06-29-2024 11:36-0400 Body weight 63.67 kg [facility] 06-29-2024 11:36-0400 Diastolic blood pressure 81 mm[Hg] [facility] 06-29-2024 11:36-0400 Heart rate 86 /min [facility] 06-29-2024 11:36-0400 Respiratory rate 12 /min [facility] 06-29-2024 11:36-0400 Systolic blood pressure 135 mm[Hg] [facility] 05-04-2024 13:01-0400 Body height 167.64 cm [facility] 05-04-2024 13:01-0400 Body mass index (BMI) [Ratio] 22.6 kg/m2 [facility] 05-04-2024 13:01-0400 Body weight 63.5 kg [facility] 05-04-2024 13:01-0400 Diastolic blood pressure 78 mm[Hg] [facility] 05-04-2024 13:01-0400 Heart rate 88 /min [facility] 05-04-2024 13:01-0400 SaO2% (BldA) [Mass fraction] 98 % [facility] 05-04-2024 13:01-0400 Systolic blood pressure 136 mm[Hg] [facility] 09-29-2023 10:33-0500 Body height 167.6 cm South Saba DO Work Phone: [facility] 09-29-2023 10:33-0500 Body weight 62.14 kg South Saba DO Work Phone: [facility] 09-12-2023 10:00-0400 Body height 167.64 cm Roland Ball Other [facility] Other 09-12-2023 10:00-0400 Body mass index (BMI) [Ratio] 23.05 kg/m2 Roland Ball Other [facility] Other 09-12-2023 10:00-0400 Body weight 64.77 kg Roland Ball Other [facility] Other 09-12-2023 10:00-0400 Diastolic blood pressure 75 mm[Hg] Roland Ball Other [facility] Other 09-12-2023 10:00-0400 Respiratory rate 12 /min Roland Syn[employer] Other [facility] Other 09-12-2023 10:00-0400 Systolic blood pressure 131 mm[Hg] Roland [employer] Other [facility] Other 08-29-2023 10:55-0400 Body height 167.6 cm Rachel Angelia PIPELINE INTEGRITY ENGINEER.DIRECTOR AMBULATORY Work Phone: [facility] 08-29-2023 10:55-0400 Body temperature 98.01 [degF] Rachel Angelia PIPELINE INTEGRITY ENGINEER.DIRECTOR AMBULATORY Work Phone: [facility] 08-29-2023 10:55-0400 Body weight 66.68 kg Rachel Angelia PIPELINE INTEGRITY ENGINEER.DIRECTOR AMBULATORY Work Phone: [facility] 08-29-2023 10:55-0400 Diastolic blood pressure 78 mm[Hg] Rachel Angelia PIPELINE INTEGRITY ENGINEER.DIRECTOR AMBULATORY Work Phone: [facility] 08-29-2023 10:55-0400 Heart rate 82 /min Rachel Angelia PIPELINE INTEGRITY ENGINEER.DIRECTOR AMBULATORY Work Phone: [facility] 08-29-2023 10:55-0400 SaO2% (BldA) [Mass fraction] 99 % Rachel Angelia PIPELINE INTEGRITY ENGINEER.DIRECTOR AMBULATORY Work Phone: [facility] 08-29-2023 10:55-0400 Systolic blood pressure 163 mm[Hg] Rachel Galan APRN.CNP Work Phone: [facility] 08-29-2023 10:03-0400 Body temperature 98.01 [degF] Heidi Hatfield MD Work Phone: [facility] 08-29-2023 10:03-0400 Body weight 66.68 kg Heidi Hatfield MD Work Phone: [facility] 08-29-2023 10:03-0400 Diastolic blood pressure 77 mm[Hg] Heidi Hatfield MD Work Phone: [facility] 08-29-2023 10:03-0400 Heart rate 82 /min Heidi Hatfield MD Work Phone: [facility] 08-29-2023 10:03-0400 Respiratory rate 16 /min Heidi Hatfield MD Work Phone: [facility] 08-29-2023 10:03-0400 SaO2% (BldA) [Mass fraction] 99 % Heidi Hatfield MD Work Phone: [facility] 08-29-2023 10:03-0400 Systolic blood pressure 157 mm[Hg] Heidi Hatfield MD Work Phone: [facility] 07-04-2023 09:18-0400 Body height 167.6 cm South Saba DO Work Phone: [facility] 07-04-2023 09:18-0400 Body temperature 97.59 [degF] South Saba DO Work Phone: [facility] 07-04-2023 09:18-0400 Body weight 66.5 kg South Saba DO Work Phone: [facility] 07-04-2023 09:18-0400 Diastolic blood pressure 68 mm[Hg] South Saba DO Work Phone: [facility] 07-04-2023 09:18-0400 Heart rate 73 /min oSuth Rashidente Work Phone: [facility] 07-04-2023 09:18-0400 SaO2% (BldA) [Mass fraction] 100 % South Jayant JACKSON Work Phone: [facility] 07-04-2023 09:18-0400 Systolic blood pressure 139 mm[Hg] South Jayant Work Phone: [facility] 06-27-2023 10:30-0400 Body temperature 97.39 [degF] Heidi Hatfield MD Work Phone: [facility] 06-27-2023 10:30-0400 Body weight 69.4 kg Heidi Hatfield MD Work Phone: [facility] 06-27-2023 10:30-0400 Diastolic blood pressure 76 mm[Hg] Heidi Hatfield MD Work Phone: [facility] 06-27-2023 10:30-0400 Heart rate 70 /min Heidi Hatfield MD Work Phone: [facility] 06-27-2023 10:30-0400 Respiratory rate 16 /min Heidi Hatfield MD Work Phone: [facility] 06-27-2023 10:30-0400 SaO2% (BldA) [Mass fraction] 97 % Heidi Hatfield MD Work Phone: [facility] 06-27-2023 10:30-0400 Systolic blood pressure 141 mm[Hg] Heidi Hatfield MD Work Phone: [facility] 05-23-2023 09:45-0400 Body height 167.64 cm Roland Serrano Other [facility] Other 05-23-2023 09:45-0400 Body mass index (BMI) [Ratio] 24.79 kg/m2 Rolnad Serrano Other [facility] Other 05-23-2023 09:45-0400 Body weight 69.67 kg Roland Ball Other [facility] Other 05-23-2023 09:45-0400 Diastolic blood pressure 78 mm[Hg] Roland Ball Other [facility] Other 05-23-2023 09:45-0400 Respiratory rate 12 /min Roland Ball Other [facility] Other 05-23-2023 09:45-0400 Systolic blood pressure 158 mm[Hg] Roland Ball Other [facility] Other 04-23-2023 13:30-0400 Body height 167.64 cm Roland Ball Other [facility] Other 04-23-2023 13:30-0400 Body mass index (BMI) [Ratio] 24.34 kg/m2 Roland Ball Other [facility] Other 04-23-2023 13:30-0400 Body weight 68.4 kg Roland Ball Other [facility] Other 04-23-2023 13:30-0400 Diastolic blood pressure 74 mm[Hg] Roland Ball Other [facility] Other 04-23-2023 13:30-0400 Respiratory rate 12 /min Roland Ball Other [facility] Other 04-23-2023 13:30-0400 Systolic blood pressure 131 mm[Hg] Roland Ball Other [facility] Other 03-05-2023 09:30-0400 Body height 167.6 cm Cherelle Medina APRN.CNP Work Phone: [facility] 03-05-2023 09:30-0400 Body weight 70.22 kg Cherelle Pack PIPELINE INTEGRITY ENGINEER.DIRECTOR AMBULATORY Work Phone: [facility] 03-05-2023 09:30-0400 Diastolic blood pressure 90 mm[Hg] Cherelle Pack PIPELINE INTEGRITY ENGINEER.DIRECTOR AMBULATORY Work Phone: [facility] 03-05-2023 09:30-0400 Heart rate 85 /min Cherelle Pack PIPELINE INTEGRITY ENGINEER.DIRECTOR AMBULATORY Work Phone: [facility] 03-05-2023 09:30-0400 Systolic blood pressure 152 mm[Hg] Cherelle Pack PIPELINE INTEGRITY ENGINEER.DIRECTOR AMBULATORY Work Phone: [facility] 01-24-2023 08:45-0500 Body height 167.64 cm Roland Ball Other [facility] Other 01-24-2023 08:45-0500 Body mass index (BMI) [Ratio] 24.05 kg/m2 Roland Ball Other [facility] Other 01-24-2023 08:45-0500 Body temperature 96.7 [degF] Roland Ball Other [facility] Other 01-24-2023 08:45-0500 Body weight 67.59 kg Roland Ball Other [facility] Other 01-24-2023 08:45-0500 Diastolic blood pressure 93 mm[Hg] Roland Ball Other [facility] Other 01-24-2023 08:45-0500 Systolic blood pressure 165 mm[Hg] Roland Ball Other [facility] Other 01-20-2023 13:35-0500 Body height 167.64 cm Olya Gann Other [facility] Other 01-20-2023 13:35-0500 Body mass index (BMI) [Ratio] 24.53 kg/m2 Olya Gann Other [facility] Other 01-20-2023 13:35-0500 Body temperature 97.3 [degF] Olya Gann Other [facility] Other 01-20-2023 13:35-0500 Body weight 68.95 kg Olya Gann Other [facility] Other 01-20-2023 13:35-0500 Respiratory rate 18 /min Olya Gann Other [facility] Other 01-20-2023 13:35-0500 SaO2% (BldA) [Mass fraction] 95 % Olya Gann Other [facility] Other 01-03-2023 15:27-0500 Body height 167.6 cm Henry Ramos MD Work Phone: [facility] 01-03-2023 15:27-0500 Body temperature 97.81 [degF] Henry Ramos MD Work Phone: [facility] 01-03-2023 15:27-0500 Body weight 71.17 kg Henry Ramos MD Work Phone: [facility] 01-03-2023 15:27-0500 Diastolic blood pressure 87 mm[Hg] Henry Ramos MD Work Phone: [facility] 01-03-2023 15:27-0500 Heart rate 95 /min Henry Ramos MD Work Phone: [facility] 01-03-2023 15:27-0500 SaO2% (BldA) [Mass fraction] 99 % Henry Ramos MD Work Phone: [facility] 01-03-2023 15:27-0500 Systolic blood pressure 141 mm[Hg] Henry Ramos MD Work Phone: [facility] 09-26-2022 12:30-0500 Diastolic blood pressure 89 mm[Hg] Leila Alamo MD Work Phone: [facility] 09-26-2022 12:30-0500 Heart rate 79 /min Leila Alamo MD Work Phone: [facility] 09-26-2022 12:30-0500 Respiratory rate 18 /min Leila Alamo MD Work Phone: [facility] 09-26-2022 12:30-0500 SaO2% (BldA) [Mass fraction] 98 % Leila Alamo MD Work Phone: [facility] 09-26-2022 12:30-0500 Systolic blood pressure 140 mm[Hg] Leila Alamo MD Work Phone: [facility] 09-26-2022 11:25-0500 Body height 167.6 cm Leila Alamo MD Work Phone: [facility] 09-26-2022 11:25-0500 Body temperature 98.2 [degF] Leila Alamo MD Work Phone: [facility] 09-26-2022 11:25-0500 Body weight 68.04 kg Leila Alamo MD Work Phone: [facility] 08-07-2022 15:28-0400 Body weight 68.95 kg Henry Ramos MD Work Phone: [facility] 08-07-2022 15:28-0400 Diastolic blood pressure 91 mm[Hg] Henry Ramos MD Work Phone: [facility] 08-07-2022 15:28-0400 SaO2% (BldA) [Mass fraction] 98 % Henry Ramos MD Work Phone: [facility] 08-07-2022 15:28-0400 Systolic blood pressure 132 mm[Hg] Henry Ramos MD Work Phone: [facility] 03-13-2022 14:38-0400 Body height 169.5 cm Henry Ramos MD Work Phone: [facility] 03-13-2022 14:38-0400 Body temperature 96.8 [degF] Henry Ramos MD Work Phone: [facility] 03-13-2022 14:38-0400 Body weight 66.32 kg Henry Ramos MD Work Phone: [facility] 03-13-2022 14:38-0400 Diastolic blood pressure 96 mm[Hg] Henry Ramos MD Work Phone: [facility] 03-13-2022 14:38-0400 Heart rate 85 /min Henry Ramos MD Work Phone: [facility] 03-13-2022 14:38-0400 Respiratory rate 16 /min Henry Ramos MD Work Phone: [facility] 03-13-2022 14:38-0400 SaO2% (BldA) [Mass fraction] 98 % Henry Ramos MD Work Phone: [facility] 03-13-2022 14:38-0400 Systolic blood pressure 151 mm[Hg] Henry Ramos MD Work Phone: [facility] 07-07-2021 14:50-0400 Diastolic blood pressure 101 mm[Hg] Mayra Michel MD Work Phone: [employer] Work Phone: 07-07-2021 14:50-0400 Heart rate 70 /min Mayra Michel MD Work Phone: [facility] Work Phone: 07-07-2021 14:50-0400 Respiratory rate 13 /min Mayra Michel MD Work Phone: [facility] Work Phone: 07-07-2021 14:50-0400 SaO2% (BldA) [Mass fraction] 99 % Mayra Michel MD Work Phone: [facility] Work Phone: 07-07-2021 14:50-0400 Systolic blood pressure 133 mm[Hg] Mayra Michel MD Work Phone: [facility] Work Phone: 07-07-2021 13:25-0400 Body height 167.6 cm Mayra Michel MD Work Phone: [facility] Work Phone: 07-07-2021 13:25-0400 Body mass index (BMI) [Ratio] 24.19 kg/m2 Mayra Michel MD Work Phone: [facility] Work Phone: 07-07-2021 13:25-0400 Body temperature 98.6 [degF] Mayra Michel MD Work Phone: [facility] Work Phone: 07-07-2021 13:25-0400 Body weight 67.99 kg Mayra Michel MD Work Phone: [employer] Work Phone: 11-25-2019 16:19-0500 Body weight 70.4 Kg [facility] Comment on above: Performed By: #### 1000, 4500, 4510, 452 0, [id number], 5000, [id number], [id number] #### [facility] Unless Otherwise Noted [address] [place] [address] / MERLY [address][id number]/FAUZIAIA # [id number] Encounters Encounter Date Encounter Type Care Provider Facility Start: 03-02-2025 ambulatory South DIXON Facility :[facility] Start: 02-21-2025 End: 02-21-2025 ambulatory ROLAND SERRANO Facility:[facility] Start: 02-21-2025 End: 02-21-2025 Subsequent hospital visit by physician Ronald Alexander 1 Work Phone: Radiology Comment on above: Pain in right hip [M 25.551] Start: 02-21-2025 End: 02-21-2025 ambulatory ROLAND SERRANO Facility:[facility] Start: 02-21-2025 End: 02-21-2025 Home visit est pt low-mod severity 25 minutes South Buenrostro MD Work Phone: Orthopaedics Comment on above: Status post right hi p replacement (Primary Dx); Pain in right hip Start: 01-17-2025 End: 01-17-2025 Subsequent hospital visit by physician Negra Brenner X-Ray 1 [facility] Comment on above: Left forearm pain Start: 01-17-2025 End: 01-17-2025 Office outpatient visit 25 minutes Edward Barros MD Work Phone: [facility] Comment on above: Chronic hip pain aft er total replacement of right hip joint (Primary Dx); Left forearm pain Start: 01-17-2025 End: 01-17-2025 ambulatory [facility] Start: 01-13-2025 End: 01-13-2025 Office outpatient visit 25 minutes Geneva Veliz MD Work Phone: [facility] Comment on above: Lumbar pain (Primary Dx); Trochanteric bursitis of right hip Start: 01-13-2025 End: 01-13-2025 ambulatory [facility] E[facility] JOSE ALFREDO [facility] Start: 01-06-2025 End: 01-06-2025 ambulatory [facility] Start: 01-06-2025 End: 01-06-2025 Subsequent hospital visit by physician Negra Andujar [facility] Comment on above: Lumbar radiculopathy Start: 01-05-2025 End: 01-05-2025 ambulatory [facility] Work Phone: Start: 01-05-2025 End: 01-05-2025 Encounter for general adult medical examination without abnormal findings [facility] Start: 01-05-2025 End: 01-05-2025 Patient encounter procedure Pending [facility] Work Phone: Start: 01-04-2025 Non-patient / Non-visit [facility]ending [facility] To [facility] Work Phone: Start: 01-03-2025 Non-patient / Non-visit Pending [facility] To [facility] Work Phone: Start: 01-02-2025 Patient encounter status [facility] Start: 12-10-2024 End: 12-10-2024 ambulatory EDWARD BARROS [facility] Start: 12-10-2024 End: 12-10-2024 Office outpatient new 45 minutes Edward Barros MD Work Phone: [facility] Comment on above: Lumbar radiculopathy [...] leg paresthesias Start: 11-26-2024 End: 11-26-2024 ambulatory [facility] Work Phone: Start: 11-26-2024 End: 11-26-2024 Patient encounter procedure [facility] Work Phone: Start: 11-01-2024 Non-patient / Non-visit [facility] Work Phone: Start: 11-01-2024 [...] End: 10-07-2024 Bamboo flowsheet Leigh A Felter PIPELINE INTEGRITY ENGINEER-DIRECTOR AMBULATORY Work Phone: [facility] Start: 10-07-2024 End: 10-07-2024 Bamboo flowsheet Leigh A Felter PIPELINE INTEGRITY ENGINEER-DIRECTOR AMBULATORY Work Phone: [facility] Start: 10-07-2024 End: 10-07-2024 ambulatory LEIGH A FELTER Not Available Start: 10-07-2024 End: 10-07-2024 Office outpatient visit 15 minutes Leigh A Felter PIPELINE INTEGRITY ENGINEER-DIRECTOR AMBULATORY Work Phone: [facility] Comment on above: Seborrheic keratosis (Primary Dx); Melanocytic nevus of trunk Start: 09-15-2024 Non-patient / Non-visit [facility] Work Phone: Start: 08-19-2024 End: 08-19-2024 Telemedicine consultation with patient Melody Hirschirasema PIPELINE INTEGRITY ENGINEER.DIRECTOR AMBULATORY Work Phone: Gynecology Oncology Start: 08-19-2024 End: 08-19-2024 ambulatory Melody Mena PIPELINE INTEGRITY ENGINEER.DIRECTOR AMBULATORY Work Phone: Gynecology Oncology Comment on above: NO SHOW (Primary Dx) Start: 08-18-2024 End: 08-18-2024 Telephone encounter Ernesto Chacko PIPELINE INTEGRITY ENGINEER.DIRECTOR AMBULATORY Work Phone: Gynecology Oncology Comment on above: [...] methimaz ole Start: 06-29-2024 End: 06-29-2024 ambulatory [facility] Work Phone: Start: 06-29-2024 End: 06-29-2024 Patient encounter procedure [facility] Work Phone: Start: 06-25-2024 Non-patient / Non-visit [facility] Work Phone: Start: 05-19-2024 Non-patient / Non-visit [facility] Work Phone: Start: 05-12-2024 End: 05-12-2024 ambulatory MARY LAU Not Available Start: 05-04-2024 End: 05-04-2024 Patient encounter procedure [facility] Work Phone: Start: 05-03-2024 Non-patient / Non-visit Pending [facility] To [facility] Work Phone: Start: 03-26-2024 End: 03-26-2024 ambulatory MARY LAU STEPANIC Not Available Start: 03-05-2024 End: 03-05-2024 ambulatory .MARY STEPANIC Not Available Start: 02-13-2024 End: 02-13-2024 ambulatory MARY LAU STEPANIC Not Available Start: 12-17-2023 End: 12-17-2023 ambulatory Roland Serrano Other [facility] Other Start: 12-17-2023 Telephone encounter Roland Serrano [facility] Start: 10-23-2023 End: 10-23-2023 ambulatory Roland Serrano Other [facility] Other Start: 10-23-2023 Telephone encounter Roland Serrano [facility] Start: 09-29-2023 End: 09-29-2023 Patient encounter procedure South Saba DO Work Phone: Colorectal Surgery Comment on above: Radiation proctitis (Primary Dx); Endometrial cancer (HCC) Start: 09-21-2023 End: 09-21-2023 ambulatory Roland Serrano Other [facility] Other Start: 09-21-2023 Telephone encounter Roland Serrano [facility] Start: 09-18-2023 End: 09-18-2023 ambulatory Roland Serrano Other [facility] Other Start: 09-18-2023 Telephone encounter Roland Ball [facility] Start: 09-17-2023 End: 09-17-2023 ambulatory Roland Ball Other [facility] Other Start: 09-17-2023 Telephone encounter Roland Ball [facility] Start: 09-15-2023 End: 09-15-2023 ambulatory Roland Ball Other [facility] Other Start: 09-15-2023 Telephone encounter Roland Ball [facility] Start: 09-14-2023 End: 09-14-2023 ambulatory Roland Serrano Other [facility] Other Start: 09-14-2023 Telephone encounter Roland VOGT [facility] Start: 09-12-2023 End: 09-12-2023 ambulatory Roland Serrano Other [facility] Other Start: 09-12-2023 Encounter for genera l adult medical examination without abnormal findings Roland Serrano [facility] Start: 09-12-2023 Periodic preventive med est patient 40-64yrs Roland Serrano [facility] Start: 09-10-2023 End: 09-10-2023 ambulatory Roland Serrano Other [facility] Other Start: 09-10-2023 Telephone encounter Roland Serrano [facility] Start: 09-03-2023 End: 09-03-2023 ambulatory Roland Serrano Other [facility] Other Start: 09-03-2023 Telephone encounter Roland VOGT [facility] Start: 09-02-2023 End: 09-02-2023 ambulatory Roland Serrano Other [facility] Other Start: 09-02-2023 Telephone encounter Roland Serrano [facility] Start: 09-01-2023 End: 09-01-2023 ambulatory Roland Serrano Other [facility] Other Start: 09-01-2023 Telephone encounter Roland VOGT [facility] Start: 08-29-2023 End: 08-29-2023 Preprocedural examination done Rachel Galan APRN.[facility] Work Phone: [facility] Work Phone: Start: 08-29-2023 End: 08-29-2023 ambulatory Pulm Fct Lab Main 8 Pulmonary Medicine Comment on above: Spirometry Start: 08-29-2023 End: 08-29-2023 Patient encounter procedure Pulm Fct Lab Main 8 [facility] Comment on above: Dyspnea and respirat ory abnormalities (Primary Dx); Calcified nodule; Iron deficiency anemia due to chronic blood loss Pre-op evaluation (P rimary Dx) Start: 08-29-2023 End: 08-29-2023 Subsequent hospital visit by physician Xr Chest Main A21 Radiology Comment on above: Dyspnea, unspecified type [R06.00] Start: 08-26-2023 Orders Only Heidi Hatfield MD Work Phone: Respiratory [place] Comment on above: ILD (interstitial lamont ng disease) (HCC) (Primary Dx) Start: 08-22-2023 ambulatory South Rashide nte DO Work Phone: [facility] Start: 08-22-2023 Patient encounter procedure South Saba DO Work Phone: Colorectal Surgery Comment on above: Pre op appointment Start: 08-22-2023 End: 08-22-2023 Subsequent hospital visit by physician [facility] ([facility]) Work Phone: [facility] Radiology CT Scan Comment on above: Interstitial pulmona ry disease (HCC) [J84.9] Start: 08-04-2023 End: 08-04-2023 ambulatory Roland Serrano Other [facility] Other Start: 08-04-2023 Office outpatient vi sit 15 minutes Roland Serrano [facility] Start: 07-22-2023 ambulatory Jackson Julieta nte DO Work Phone: Colorectal Surgery Start: 07-22-2023 Telephone encounter South Philippe Jayant DO Work Phone: Colorectal Surgery Comment on above: Patient Update Start: 07-08-2023 End: 07-08-2023 ambulatory Roland Serrano Other [facility] Other Start: 07-08-2023 Telephone encounter Roland Serrano FP [facility] Start: 07-04-2023 ambulatory [place] n[place] DO Work Phone: Colorectal Surgery Start: 07-04-2023 End: 07-04-2023 Patient encounter procedure [place] DO Work Phone: Colorectal Surgery Comment on above: Endometrial cancer ( HCC) (Primary Dx); Radiation proctitis Start: 06-27-2023 End: 06-27-2023 ambulatory Pulm Fct Lab Main 9 Pulmonary Medicine Comment on above: Spirometry Start: 06-27-2023 End: 06-27-2023 Patient encounter procedure Pulm Fct Lab Main 9 F [facility] Comment on above: Interstitial pulmona ry disease (HCC) (Primary Dx); Other secondary pulmonary hypertension (HCC) Start: 05-26-2023 ambulatory Henry perales MD Work Phone: Gynecology Oncology Comment on above: Procitis Start: 05-23-2023 End: 05-23-2023 ambulatory Roland Serrano Other [employer] Other Start: 05-23-2023 Office outpatient vi sit 15 minutes Roland MONTAGUE [facility] Start: 05-13-2023 End: 05-13-2023 ambulatory Roland Serrano Other [employer] Other Start: 05-13-2023 Telephone encounter Roland Christensen [facility] Start: 04-23-2023 End: 04-23-2023 ambulatory Roland Serrano Other [employer] Other Start: 04-23-2023 Patient encounter procedure Roland MONTAGUE [facility] Start: 03-25-2023 End: 03-25-2023 ambulatory Roland Serrano Other [employer] Other Start: 03-25-2023 Telephone encounter Roland [facility] Start: 03-21-2023 Telephone encounter Roland Christensen [facility] Start: 03-21-2023 End: 03-22-[address] ROLAND SERRANO [facility] [employer] Other Start: 03-11-2023 End: 03-11-2023 ambulatory Roland Serrano Other [employer] Other Start: 03-11-2023 Telephone encounter Roland Serrano TORIE [facility] Start: 03-10-2023 End: 03-11-[address] ROLAND SERRANO [place] [employer] Other Start: 03-10-2023 Telephone encounter Roland Serrano TORIE [facility] Start: 03-05-2023 End: 03-05-2023 Patient encounter procedure Cherelle Medina PIPELINE INTEGRITY ENGINEER.DIRECTOR AMBULATORY Work Phone: Gastroenterology Comment on above: Rectal bleeding (Vivi nicho Dx) Start: 01-24-2023 End: 01-24-2023 ambulatory Roland Serrano Other [employer] Other Start: 01-24-2023 Office outpatient vi sit 15 minutes Roland Serrano [facility] Start: 01-23-2023 End: 01-23-2023 ambulatory Roland Serrano Other [employer] Other Start: 01-23-2023 Telephone encounter Roland VOGT [facility] Start: 01-20-2023 Office outpatient vi sit [address] [facility] Start: 01-20-2023 End: 01-20-[address] ROLAND SERRANO [facility] [employer] Other Start: 01-07-2023 End: 01-07-2023 ambulatory Roland Serrano Other [employer] Other Start: 01-07-2023 Telephone encounter Roland Serrano TORIE [facility] Start: 01-03-2023 End: 01-04-2023 ambulatory Henry Ramos MD Work Phone: Gynecology Oncology Comment on above: Recurrent carcinoma of endometrium (HCC) (Primary Dx); Radiation proctitis; Blood per rectum Start: 01-03-2023 End: 01-04-2023 Patient encounter procedure Henry Ramos MD Work Phone: [facility] Start: 12-25-2022 Telephone encounter Aretha [...] examination without abnormal findings DR ROLAND SERRANO [facility] Start: 09-04-2022 End: 09-05-[address] ROLAND SERRANO Facility:[facility]1 Start: 09-04-2022 End: 09-05-2022 Encounter for general adult medical examination without abnormal findings DR ROLAND SERRANO Facility:[facility] Start: 08-29-2022 Adult health examination Roland Serrano Other [employer] Other Start: 08-29-2022 Encounter for genera l adult medical examination without abnormal findings Rloand Serrano Other [employer] Other Start: 08-29-2022 Pre-procedure evaluation check Roland Serrano Other [employer] Other Start: 08-07-2022 End: 08-07-2022 ambulatory Henry Ramos MD Work Phone: Gynecology Oncology Comment on above: Recurrent carcinoma of endometrium (HCC) (Primary Dx); Radiation proctitis; Foreshortening of vagina; Endometrial cancer (HCC); Vaginal atrophy; Rectal bleeding Start: 08-07-2022 End: 08-07-2022 Patient encounter procedure Henry Ramos MD Work Phone: [facility] Start: 06-12-2022 End: 06-12-2022 ambulatory SALOMON JACOME Facility:[facility] Start: 03-13-2022 End: 03-13-2022 ambulatory Henry Ramos MD Work Phone: Gynecology Oncology Comment on above: Recurrent carcinoma of endometrium (HCC) (Primary Dx); Vaginal atrophy; Foreshortening of vagina Start: 03-13-2022 End: 03-13-2022 Patient encounter procedure Henry Ramos MD Work Phone: [facility] Start: 12-13-2021 End: 12-13-2021 Subsequent hospital visit by physician Arrival Time Radiology Work Phone: Radiology Pet CT Comment on above: Malignant neoplasm o f endometrium (HCC) [C54.1] Start: 11-21-2021 End: 11-22-2021 Emergency department patient visit [facility] Start: 07-07-2021 End: 07-07-2021 Emergency department patient visit [facility] Start: 07-07-2021 End: 07-07-2021 Emergency department patient visit Mayra Michel MD Work Phone: [facility] ED Comment on above: Dizziness (Primary D x); Dehydration Procedures Date Procedure Procedure Detail Performing Clinician Start: 02-21-2025 Radex hip unilateral with pelvis 2-3 views South Buen[place]ro MD Work Phone: Start: 01-17-2025 Radex forearm 2 views Eun Barros MD Work Phone: Start: 01-13-2025 Arthrocentesis aspir &/inj major jt/bursa w/o us Geneva Veliz MD Work Phone: Start: 01-06-2025 Nerve conduction vicki dies 11-12 studies Edward Barros MD Work Phone: Start: 11-01-2024 Radex hip unilateral with pelvis 2-3 views Dyan SOSA Work Phone: Start: 08-05-2024 Iadna human papillom avirus high-risk types Ernesto Chacko PIPELINE INTEGRITY ENGINEER.DIRECTOR AMBULATORY Work Phone: Start: 08-05-2024 Unlisted surgical pa thology procedure Ernesto Chacko PIPELINE INTEGRITY ENGINEER.DIRECTOR AMBULATORY Work Phone: Start: 08-05-2024 Microscopic observat ion [Identifier] in Cervix by Cyto stain Leigh Valenzuela PIPELINE INTEGRITY ENGINEER-[facility] Work Phone: Start: 05-04-2024 Quick Strep (POC) Start: 08-29-2023 Spmtry w/vc expirato ry bernie [...] w /collj spec when pfrmd Ernesto Chacko APRN.DIRECTOR AMBULATORY Work Phone: Start: 09-26-2022 Colonoscopy Leila Alamo MD Work Phone: Start: 12-13-2021 Ct abdomen & pelvis w/contrast material Ernesto Chacko PIPELINE INTEGRITY ENGINEER.DIRECTOR AMBULATORY Work Phone: Start: 12-13-2021 Ct thorax w/contrast material Ernesto Chacko PIPELINE INTEGRITY ENGINEER.DIRECTOR AMBULATORY Work Phone: Start: 11-02-2021 Antibody screen Comment on above: Order Comment: Trans fuse now? N Result Comment: PERF ORMED BY: [facility] [address] [place] [address] PATHOLOGIST HAND LEATHER TRIMMER CLAIRE ANTHONY M.D. Start: 10-15-2021 Antibody screen Comment on above: Order Comment: Date of Surgery: [id number] # of PRBC units on hold?: 2 Result Comment: PERF ORMED BY: [facility] [address] [place] [address] PATHOLOGIST HAND LEATHER TRIMMER CLAIRE ANTHONY M.D. Start: 09-20-2021 Adult depression scr eening assessment Henry Ramos MD Work Phone: Start: 08-20-2021 Antibody screen Comment on above: Order Comment: Date of Surgery: [id number] # of PRBC units on hold?: 2 Result Comment: PERF ORMED BY: [facility] [address] [place] [address] PATHOLOGIST HAND LEATHER TRIMMER CLAIRE ANTHONY M.D. Start: 07-07-2021 Urinalysis microscopic only Mayra Micehl MD Work Phone: Start: 07-07-2021 Urnls dip stick/tabl et rgnt auto w/o microscopy Mayra Michel MD Work Phone: Start: 07-07-2021 Comprehensive metabo lic panel Mayra Michel MD Work Phone: Start: 10-18-2019 Mammography Leigh pozo PIPELINE INTEGRITY ENGINEER-[place] Work Phone: Start: 06-11-2019 General examination of patient Roland Serrano Other Start: 06-11-2019 Screening for malign ant neoplasm of colon Roland Serrano Other Start: 05-05-2019 Microscopic observat ion [Identifier] in Cervix by Cyto stain Leigh Valenzuela PIPELINE INTEGRITY ENGINEER-DIRECTOR AMBULATORY Work Phone: Screening for malign ant neoplasm of breast Roland Serrano Other Plan of Treatment Date Care Activity Detail Author Start: 2035 RSV High Risk: (Elde rly (60+) or Population) (1 - 1-dose 75+ series) RSV High Risk: (Elderly (60+) or Population) (1 - 1-dose 75+ series) [facility] Start: 2035 RSV Vaccine (1 - 1-d ose 75+ series) RSV Vaccine (1 - 1-dose 75+ series) [facility] Start: 09-26-2032 Screening for malign ant neoplasm of colon [facility] Start: 08-05-2029 Screening for malign ant neoplasm of cervix [facility] Start: 08-05-2027 Screening for malign ant neoplasm of cervix Pap Smear [facility] Start: 08-29-2026 Diabetes Screening Diabetes Screenin [facility] Start: 07-04-2026 DIABETES SCREEN DIABETES SCREEN [facility] Start: 07-04-2026 Diabetes Screening Diabetes Screenin [facility] Start: 10-06-2025 End: 10-06-2025 Patient encounter procedure 10/06/2025 11:05 AM EST Office Visit [facility] [address] [place] [phone] Leigh Valenzuela APRN-DIRECTOR AMBULATORY [address] [place] [address] [facility] Start: 08-05-2025 Screening for malign ant neoplasm of cervix Cervical Cancer Screening [facility] Start: 01-13-2025 End: 01-13-2025 Patient encounter procedure 01/13/2025 10:30 AM EST Office Visit [facility] [address] [place] [phone] Geneva Veliz MD [address] [facility], [address] [place] [address] [facility] Start: 12-29-2024 End: 12-29-2024 Patient encounter procedure 12/29/2024 10:00 AM EST Office Visit [facility] [address] [place] [phone] Jr. Mary Gatica, [address] [facility] [address] [place] [address] [facility] Start: 12-10-2024 End: 12-10-2025 EMG & nerve conduction EMG & nerve conduction Neurology Routine Lumbar radiculopathy Expected: 12/10/2024 (Approximate), Expires: 12/10/2025 [facility] Work Phone: Comment on above: Expected: 12/10/2024 (Approximate), Expires: 12/10/2025 Start: 12-10-2024 End: 12-10-2025 XR Hip Views [facility] Work Phone: Comment on above: Expected: 12/10/2024 , Expires: 12/10/2025 Start: 12-02-2024 End: 12-02-2025 EMG AND NERVE CONDUCTION STUDY EMG AND NERVE CONDUCTION STUDY Neurology Routine Right leg paresthesias Expected: 12/02/2024 (Approximate), Expires: 12/02/2025 [facility] Work Phone: Comment on above: Expected: 12/02/2024 (Approximate), Expires: 12/02/2025 Start: 12-02-2024 End: 12-02-2024 Patient encounter procedure 12/02/2024 10:30 AM EST Office Visit [facility] [address] [place] [phone] Dyan Robb PA [address] [place] [facility] [address] [place] [address] [facility] Start: 11-25-2024 End: 11-25-2024 Follow-up encounter 11/25/2024 1:50 PM EST Visit (SP) Office Gynecology Oncology [id number] [place] [address] Henry Ramos MD [address] [place], [place] [id number] 4 MONTH FOLLOW UP Gynecology Oncology Comment on above: 4 MONTH FOLLOW UP Start: 11-03-2024 End: 11-03-2024 Patient encounter procedure 11/03/2024 1:00 PM EST Office Visit [facility] [address] [place] [phone] Dyan Robb PA [address] [facility] [address] [place] [address] [facility] Start: 11-01-2024 End: 11-01-2025 MR Lumbar spine WO contrast MR lumbar spine wo contrast Imaging Routine Lumbar radiculopathy, right Expected: 11/01/2024 (Approximate), Expires: 11/01/2025 [facility] Comment on above: Expected: 11/01/2024 (Approximate), Expires: 11/01/2025 Start: 11-01-2024 End: 11-01-2024 Patient encounter procedure [facility] Comment on above: History of right hip replacement (Primary Dx); Acute pain of right hip Start: 09-09-2024 End: 09-09-2024 Follow-up encounter Gynecology Oncology Comment on above: 1 Year/Annual Follow Up follow up; needs pap Start: 08-19-2024 End: 08-19-2024 ambulatory 08/19/2024 3:00 PM EDT [facility] Gynecology Oncology [address] [place] [address] Melody Mena APRN.DIRECTOR AMBULATORY [address] [place], [place] [id number] TELEVISIT Gynecology Oncology Comment on above: TELEVISIT Start: 08-05-2024 End: 08-05-2024 Follow-up encounter 08/05/2024 11:10 AM EDT Visit (SP) Office Gynecology Oncology [id number] [place] [address] Henry Ramos MD [address] [place] [address] Follow up Gynecology Oncology Comment on above: Follow up Start: 07-18-2024 Covid-19 Vaccine ( season) Covid-19 Vaccine ( season) [facility] Start: 07-18-2024 Covid-19 Vaccine ( season) Covid-19 Vaccine () [facility] Start: 07-18-2024 Influenza vaccination Influenza Vacc ine (#1) [facility] Start: 09-26-2023 Colonoscopy COLONOSCOPY [facility] Start: 09-26-2023 COLORECTAL CANCER SCREENING COLORECTAL CANCER SCREENING [facility] Start: 09-26-2023 Screening for malign ant neoplasm of colon [facility] Start: 08-26-2023 End: 09-24-2024 SPIROMETRY BASELINE ONLY SPIROMETRY BASELINE ONLY PFT Routine ILD (interstitial lung disease) (HCC) Expected: 08/26/2023, Expires: 09/24/2024 [facility] Work Phone: Comment on above: Expected: 08/26/2023 , Expires: 09/24/2024 Start: 07-22-2023 End: 09-21-2023 CBC W Auto Differential panel - Blood CBC + DIFF Lab Routine Radiation proctitis Expected: 07/22/2023, Expires: 09/21/2023 [facility] Work Phone: Comment on above: Expected: 07/22/2023 , Expires: 09/21/2023 Start: 07-22-2023 End: 09-21-2023 Comprehensive metabolic 2000 panel - Serum or Plasma COMP METABOLIC PANEL Lab Routine Radiation proctitis Expected: 07/22/2023 (Approximate), Expires: 09/21/2023 [facility] Work Phone: Comment on above: Expected: 07/22/2023 (Approximate), Expires: 09/21/2023 Start: 07-18-2023 Covid-19 Vaccine () Covid-19 Vaccine () [facility] Start: 07-18-2023 Influenza vaccination C [facility] Start: 11-17-2022 DEPRESSION ASSESSMENT DEPRESSION ASS ESSMENT [facility] Start: 09-20-2022 Adult depression scr eening assessment DEPRESSION SCREENING [facility] Start: 08-12-2022 DIABETES SCREEN DIABETES SCREEN [facility] Start: 08-07-2022 End: 10-07-2022 CBC W Auto Differential panel - Blood CBC + DIFF Lab Routine Rectal bleeding Expected: 08/07/2022, Expires: 10/07/2022 [facility] Work Phone: Comment on above: Expected: 08/07/2022 , Expires: 10/07/2022 Start: 07-18-2022 Influenza vaccination C [facility] Start: 05-05-2022 Screening for malign ant neoplasm of cervix [facility] Start: 11-27-2021 COVID-19 VACCINE (3 - Booster for Moderna series) COVID-19 VACCINE (3 - Booster for Moderna series) [facility] Start: 11-17-2021 DEPRESSION ASSESSMENT DEPRESSION ASS ESSMENT [facility] Start: 08-22-2021 COVID-19 VACCINE (3 - Booster for Moderna series) COVID-19 VACCINE (3 - Booster for Moderna series) [facility] Start: 08-22-2021 COVID-19 VACCINE (3 - Moderna series) COVID-19 VACCINE (3 - Moderna series) [facility] Start: 07-18-2021 Influenza vaccination Flu vaccine (# 1) [employer] Phone: Start: 10-18-2020 Screening for malign ant neoplasm of breast [facility] Start: 2020 RSV High Risk: (Elde rly (60+) or Population) (1 - Risk 60-74 years 1-dose series) RSV High Risk: (Elderly (60+) or Population) (1 - Risk 60-74 years 1-dose series) [facility] Start: 2020 RSV Vaccine (1 - 1-d ose 60+ series) RSV Vaccine (1 - 1-dose 60+ series) [facility] Start: 2020 RSV Vaccine (1 - Ris k 60-74 years 1-dose series) RSV Vaccine (1 - Risk 60-74 years 1-dose series) [facility] Start: 2010 Pneumococcal vaccination Pneum ococcal Vaccine (1 of 1 - PCV) [facility] Start: 2010 Pneumococcal Vaccine : 50+ (1 of 1 - PCV) Pneumococcal Vaccine: 50+ (1 of 1 - PCV) [facility] Start: 2010 SHINGRIX VACCINE (1 of 2) ROGERS GRIX VACCINE (1 of 2) [facility] Start: 2010 Zoster Vaccines (1 of 2) Zoste r Vaccines (1 of 2) [facility] Start: 2005 COLOGUARD (FIT-DNA) COLOGUARD (FIT-D NA) [facility] Start: 2005 Colonoscopy COLONOSCOPY [facility] Start: 2005 COLORECTAL CANCER SCREENING COLORECTAL CANCER SCREENING [facility] Start: [address] COLONOGRAPHY [facility] Start: 2005 FECAL OCCULT BLOOD FECAL OCCULT BLOO D [facility] Start: 2005 Lipid 1996 panel - S marcela or Plasma Lipid Screening [facility] Start: 2005 Lipid panel Lipid Screening [facility] Start: 2005 LIPID SCREEN LIPID SCREEN [facility] Start: 2005 Screening for malign ant neoplasm of colon [facility] Start: 2005 SIGMOIDOSCOPY SIGMOIDOSCOPY [facility] Start: 2000 Mammography [facility] Start: 2000 Screening for malign ant neoplasm of breast Mammogram Screening [facility] Start: 1990 HPV TESTING HPV TESTING [facility] Start: 1990 Screening for malign ant neoplasm of cervix HPV/Cotest [facility] Start: 1982 DTaP/Tdap/Td Vaccine s (1 - Tdap) DTaP/Tdap/Td Vaccines (1 - Tdap) [facility] Start: 1981 PAP TESTING PAP TESTING [facility] Start: 1981 Screening for malign ant neoplasm of cervix [facility] Start: 1979 Pneumococcal vaccination Pneum ococcal Vaccine (1 of 2 - PCV) [facility] Start: 1979 Urine microalbumin profile [facility] Start: 1978 ANNUAL PCP TEAM SPORTS PHYSICAL THERAPIST SHAILA DISEASE VISIT ANNUAL PCP TEAM CHRONIC DISEASE VISIT [facility] Start: 1978 Anxiety Screening Anxiety Screening [facility] Start: 1978 BP CONTROLLED (<130/80) BP CONTROLLE D (<130/80) [facility] Start: 1978 Depression Screening Depression Scre ening [facility] Start: 1978 HEPATITIS C SCREENING HEPATITIS C [facility] Start: 1978 Hepatitis C screening Hepatitis C [facility] Start: 1978 HIV SCREENING HIV SCREENING [facility] Start: 1978 HIV screening HIV Screening [facility] Start: 1961 MMR Vaccines (1 of 1 - Standard series) MMR Vaccines (1 of 1 - Standard series) [facility] Start: 1960 HIV screening HIV Screening [facility] Start: 1960 Lipid panel Lipid Panel [facility] Start: 1960 Screening for malign ant neoplasm of colon [facility] Start: 1960 Yearly Adult Physical Yearly Adult P hysical [facility] End: 03-05-2024 Colonoscopy COLONOSCOPY (THERAPEUTIC) Endoscopy Routine Rectal bleeding 1 Occurrences starting 03/05/2023 until 03/05/2024 [facility] Work Phone: Comment on above: 1 Occurrences starti ng 03/05/2023 until 03/05/2024 End: 07-26-2024 Ct thorax w/o contrast material CT CHEST WO IVCON Radiology Routine Interstitial pulmonary disease (HCC) 1 Occurrences starting 06/27/2023 until 07/26/2024 [facility] Work Phone: Comment on above: 1 Occurrences starti ng 06/27/2023 until 07/26/2024 End: 07-07-2021 Culture, Urine Culture, Urine Microbiology Routine Once for 1 Occurrences starting 07/07/2021 until 07/07/2021 [employer] Work Phone: Comment on above: Once for 1 Occurrenc es starting 07/07/2021 until 07/07/2021 Culture, Urine Culture, Urine Microbiology Routine 07/07/2021 2:00 PM EDT [facility] Work Phone: End: 06-27-2024 Echocardiography ECHO Cardiology Routine Other secondary pulmonary hypertension (HCC) 1 Occurrences starting 06/27/2023 until 06/27/2024 [facility] Work Phone: Comment on above: 1 Occurrences starti ng 06/27/2023 until 06/27/2024 H&P for surgery H&P FOR SURGERY Procedures Routine Radiation proctitis Ordered: 07/22/2023 [facility] Work Phone: Comment on above: Ordered: 07/22/2023 End: 07-26-2024 LUNG DIFFUSION CAPACITY (DLCO) LUNG DIFFUSION CAPACITY (DLCO) PFT Routine Interstitial pulmonary disease (HCC) 1 Occurrences starting 06/27/2023 until 07/26/2024 [facility] Work Phone: Comment on above: 1 Occurrences starti ng 06/27/2023 until 07/26/2024 LUNG DIFFUSION CAPAC ITY (DLCO) LUNG DIFFUSION CAPACITY (DLCO) PFT Routine Interstitial pulmonary disease (HCC) 08/29/2023 9:27 AM EDT [facility] Work Phone: End: 07-26-2024 LUNG VOLUMES LUNG VOLUMES PFT Routine Interstitial pulmonary disease (HCC) 1 Occurrences starting 06/27/2023 until 07/26/2024 [facility] Work Phone: Comment on above: 1 Occurrences starti ng 06/27/2023 until 07/26/2024 MG Breast - bilatera l Screening [facility] PAP TEST PAP TEST Lab Rou teri Vaginal bleeding History of endometrial cancer Ordered: 08/05/2024 [facility] Work Phone: Comment on above: Ordered: 08/05/2024 End: 07-26-2024 Pulmonary ventilation & perfusion imaging NM LUNG VENT / PERF VQ Radiology Routine Other secondary pulmonary hypertension (HCC) 1 Occurrences starting 06/27/2023 until 07/26/2024 [facility] Work Phone: Comment on above: 1 Occurrences starti ng 06/27/2023 until 07/26/2024 REFER FOR ADMIT INTERVIEW REFER FOR ADMIT INTERVIEW Procedures Routine Radiation proctitis Ordered: 07/22/2023 [facility] Work Phone: Comment on above: Ordered: 07/22/2023 End: 08-07-2023 Screening colonoscopy COLONOSCOPY SCREENING Endoscopy Routine Rectal bleeding 1 Occurrences starting 08/07/2022 until 08/07/2023 [facility] Work Phone: Comment on above: 1 Occurrences starti ng 08/07/2022 until 08/07/2023 End: 09-26-2022 Screening colonoscopy COLONOSCOPY SCREENING Endoscopy Routine Rectal bleeding 1 Occurrences starting 09/26/2022 until 09/26/2022 [facility] Work Phone: Comment on above: 1 Occurrences starti ng 09/26/2022 until 09/26/2022 SPIROMETRY BASELINE ONLY SPIROME TRY BASELINE ONLY PFT Routine ILD (interstitial lung disease) ([facility]) 08/29/2023 9:27 AM EDT [facility] Work Phone: SPIROMETRY WITH DILA TOR IF OBSTRUCTED SPIROMETRY WITH DILATOR IF OBSTRUCTED PFT Routine Dyspnea, unspecified type 06/27/2023 10:15 AM EDT [facility] Work Phone: XR Lumbar spine View s W flexion and W extension XR lumbar spine 4+ views w flexion extension Imaging Routine Lumbar radiculopathy, right Ordered: 11/01/2024 [facility] Work Phone: Comment on above: Ordered: 11/01/2024 End: 03-23-2026 XR Pelvis AP XR PELVIS 1V AP Radiology Routine Pain in right hip 1 Occurrences starting 02/21/2025 until 03/23/2026 [facility] Work Phone: Comment on above: 1 Occurrences starti ng 02/21/2025 until 03/23/2026 [facility] Immunizations Immunization Date Immunization Notes Care Provider Fa landy 06-27-2021 COVID-19 vaccine, fu ll dose (MODERNA) Henry Ramos MD Work Phone: [facility] 11-21-2020 COVID-19 vaccine, fu ll dose (MODERNA) Henry Ramos MD Work Phone: [facility] Payers Date Payer Category Payer Blue Cross Blue Shield [id number] 2022 Blue Cross Blue Shie ld Managed Care [facility] [id number] 2020 Unknown MMO MMO [employer]US [id number] 2020-Present [phone] [address] [place] [address] PPO [id number]. [id number] 2020 Unknown [id number]. 1.13.159.2. 7.3.149861.315 1960 Unknown [id number] 2.16.840.1.434715.3.579.2. 174 1960 Unknown [id number] 2.16.840.1.201421.3.579.2. 174 1960 Unknown [id number] 2.16.840.1.550567.3.579.2. 593 1960 Unknown [id number] 2.16.840.1.385262.3.579.2. 593 1960 Unknown [id number] 2.16.840.1.538548.3.579.2. 593 1960 Unknown [id number] 2.16.840.1.142067.3.579.2. 593 1960 Unknown [id number] 2.16.840.1.121908.3.579.2. 593 1960 Unknown [id number] 2.16.840.1.167525.3.579.2. 593 1960 Unknown [id number] 2.16.840.1.305692.3.579.2. 593 1960 Unknown [id number] 2.16.840.1.593505.3.579.2. 1259 1960 Unknown [id number] 2.16.840.1.523956.3.579.2. 1259 1960 Unknown [id number] 2.16.840.1.601652.3.579.2. 9 1960 Unknown [id number] 2.16.840.1.805777.3.579.2. 1259 1960 Unknown [id number] 2.16.840.1.928887.3.579.2. 1259 1960 Unknown [id number] 2.16.840.1.153250.3.579.2. 1259 1960 Unknown [id number] 2.16.840.1.136476.3.579.2. 9 1960 Unknown [id number] 2.16.840.1.002876.3.579.2. 1259 1960 Unknown [id number] 2.16.840.1.714283.3.579.2. 1259 1960 Unknown [id number] 2.16.840.1.717489.3.579.2. 1259 1960 Unknown [id number] 2.16.840.1.160755.3.579.2. 1243 1960 Unknown [id number] 2.16.840.1.264814.3.579.2. 1246 1960 Unknown [id number] 2.16.840.1.018070.3.579.2. 124 1960 Unknown [id number] 2.16.840.1.436575.3.579.2. 1246 1960 Unknown [id number] 2.16.840.1.956549.3.579.2. 1246 1960 Unknown [id number] 2.16.840.1.804906.3.579.2. 727 1959 [facility] [id number] 2.16.840.1.653235.19 1959 Unknown [id number] 1.2.840.484988.1.13.239.2. 7.3.035382.315 Self-pay Self Pay [id number] Social History Date Type Detail Facility Start: 07-07-2021 End: 08-07-2022 Tobacco smoking status NHIS Never smoker [facility] Start: 07-07-2021 End: 08-07-2022 Tobacco use and exposure Never used [employer] Start: 1960 Sex Assigned At Not on file [employer] Work Phone: Start: 10-29-2021 End: 01-17-2025 Exposure to SARS-CoV-2 (event) Not sure [employer] Start: 03-13-2022 End: 08-05-2024 Alcohol intake Current drinker of alcohol (finding) [facility] Start: 07-28-2019 History SDOH Alcohol Comment 3 drinks per month [facility] Start: 03-05-2023 End: 06-27-2023 Sex Assigned At [facility] Start: 03-05-2023 End: 06-27-2023 History of Social function [facility] Adult Depression Screening Assessment 0 [facility] Start: 1960 Sex Assigned At Female F [facility] How often to you hav [...] female gender (finding) [facility] Start: 11-26-2024 End: 01-05-2025 Sex Female (finding) [facility] Medical Equipment Procedure Code Equipment Code Equipment Origin al Text Equipment Identifier Dates Minimally invasive revision of total replacement of hip Orthopaedic bone screw, non-bioabsorbable, sterile [id number] FDA Start: 11-02-2021 Minimally invasive revision of total replacement of hip Acetabular shell ()[id number] FDA Start: 11-02-2021 Minimally invasive revision of total replacement of hip Non-constrained polyethylene acetabular liner ()[id number] FDA Start: 11-02-2021 Minimally invasive revision of total replacement of hip Acetabulum prosthesis hole plug ()[id number] FDA Start: 11-02-2021 Minimally invasive revision of total replacement of hip Ceramic femoral head prosthesis ()[id number] FDA Start: 11-02-2021 Minimally invasive revision of total replacement of hip Coated hip femur prosthesis, modular [id number] FDA Start: 11-02-2021 Arthroplasty, thumb Tendon/ligam ent bone anchor, non-bioabsorbable ()[id number] FDA Start: 09-14-2020 Functional Status Date Assessment Result Facility 08-13-2019 Are you deaf, or do you have serious difficulty hearing No 08/13/2019 3:43 PM EDT Ariana Paredes RN No [facility] 08-13-2019 Are you blind, or do you have serious difficulty seeing, even when wearing glasses No 08/13/2019 3:43 PM EDT Ariana Paredes, NIKITA No [facility] 08-13-2019 Do you have serious difficulty walking or climbing stairs No 08/13/2019 3:43 PM EDT Ariana Paredes RN No [facility] 08-13-2019 Do you have difficul ty dressing or bathing No 08/13/2019 3:43 PM EDT Ariana Paredes, NIKITA No [facility] 08-13-2019 Because of a physica l, mental, or emotional condition, do you have difficulty doing errands alone such as visiting a physician's office or shopping No 08/13/2019 3:43 PM EDT Ariana Paredes RN No [facility] Mental Status Date Assessment Result Facility 08-13-2019 Because of a physica l, mental, or emotional condition, do you have serious difficulty concentrating, remembering, or making decisions No 08/13/2019 3:43 PM EDT Ariana Paredes RN No [facility] Clinical Notes 12-13-2021 to 02-21-2025 South Buenrostro MD - 02/21/2025 11:08 AM Salud Barros MD - 01/17/2025 1:15 PM Jorge Veliz MD - 01/13/2025 10:30 AM Lashae Sol PA-C - 12/10/2024 10:30 AM EST Note Date & Type Note Facility 02-21-2025 Note HNO ID: [id number] Author: SOUTH BUENROSTRO MD Service: ? Author Type: Physician Type: Progress Notes Filed: 02/21/2025 16:59 Note Text: CONSULT ORTHOPAEDIC: HIP PRIMARY CARE PHYSICIAN: Roland Serrano DO REFERRING PROVIDER: No referring provider defined for this encounter. ASSESSMENT AND PLAN Impression: Right Hip Pain Status Post Right Total Hip Arthroplasty Patient presents for evaluation regarding her right hip. She is status post right primary total of arthroplasty in October [address] Comer at [facility] orthopedics in [facility]. She has greater than 1 year history of slowly progressively worsening right groin and lateral hip and thigh pain. No particular injury or trauma. No issues after surgery in terms of infection, no repeat surgeries. No prior dislocations. She has a an aching dull groin pain particularly with weightbearing activity. She does have some known back issues and has seen spine team back home. No prior spinal surgeries or injections. She recently went to [place] a few weeks ago and had significant trouble walking, as well as riding a bike. Ambulates with no assistive device. She feels that this has significantly worsened from 1 year ago. She apparently did have an infection workup from her index surgeons office which was negative but I do not currently have records of this. No operative reports currently available. On physical examination she has a well-healed posterior lateral hip incision on the right. Mild tenderness palpation of the right greater trochanter. Ambulates with a slightly antalgic gait to the right. Climbs on the exam table without major difficulty. Tolerates passive range of motion of the hip 0-110 with no problem, however does have significant pain with internal rotation external rotation at end range. Pain with resisted hip flexion. She has some dullness to sensation down her RLE, some ttp over her R paraspinal muscles, some mild radiation down her RLE down to her distal thigh. Tenderness to palpation about the mid upper proximal thigh and over the trochanter. No pain with logroll. Radiographs from today demonstrate right total hip arthroplasty hardware, her acetabular component has 1 screw and this appears well fixed. Her femoral component does have signs of aseptic loosening, with a windshield wiper affect approximately, with radiolucencies around the proximal metaphyseal area of the stem, distally there is a stem reaction with a hypertrophic medial cortex with evidence of cortical reaction. We discussed the patient's physical exam and radiographs in detail in the office today. Discussed that the stem is likely loose proximally and potted distally and is causing her femoral component stem pain. Discussed options in terms of treatments with protected weightbearing with crutches / walker, revision in terms of revising her femoral component, need for an ETO to get the stem out and risk of damaging the trochanter, risk of ETO non-union, dislocation, elevated risk of infection in revision scenario, leg leg length discrepancy. Discussed beginning with protected weightbearing with crutches/walker for the next 4 weeks, during this time she will obtain her prior operative reports/implant records, as well as her initial postoperative x-ray images for comparison. Will follow-up with her after we are able to obtain these records. Diagnoses: (Z96.641) Status post right hip replacement (primary encounter diagnosis) (M25.551) Pain in right hip The patient has been ordered: Office Visit on 02/21/25 XR HIP GENERAL 3V PELV/AP/LAT RIGHT XR PELVIS 1V AP COMPLETE BLOOD COUNT *Canceled* SEDIMENTATION RATE, WESTERGREN *Canceled* C-REACTIVE PROTEIN *Canceled* C-REACTIVE PROTEIN COMPLETE BLOOD COUNT SEDIMENTATION RATE, WESTERGREN meloxicam (MOBIC) 15 mg tablet CONSULTS: Total Joint Athroplasty - Risk Calculator Risk Factors for Total Knee Arthroplasty (TKA) Major Risk Factors Obesity normal High: BMI > 40 Moderate: BMI 30-40 Normal: BMI < 30 Diabetes normal High: A1C > 8 Moderate: A1C 7-8 Normal: A1C < 7 Hx of DVT / PE normal High: dx of DVT / PE Normal: no dx of DVT / PE Smoking normal High: Current smoker Normal: Non smoker Narcotics Use normal High:NarxCare >=300 Moderate: 100-299 Normal: 0-99 Depression normal High: PHQ-9 >14 Moderate: PHQ-9 5-14 Normal: PHQ-9 < 5 Area Deprivation Index (VINCENT) Unknown Risk High: VINCENT Score > 75 Moderate: VINCENT 50-75 Normal: VINCENT < 50 Area Deprivation Index (VINCENT) 08/07/2022 06/27/2023 VINCENT Score National Score 70 79 Patient Health Questionnaire (PHQ-9) 09/20/2021 08/04/2024 02/14/2025 PHQ-9 PHQ-2 Score 0 0 0 (0-4) minimal depression, (5-9) mild depression, (10-14) moderate depression, (15-19) moderately severe depression, (20-27) severe depression Bone Density Risk Screen Isabel Waddell is low risk for bone loss based on her age and having no previous diagnoses of os (more content not included)... [facility] 02-21-2025 History of Present illness Narrative Images from the original note were not included. CONSULT ORTHOPAEDIC: HIP PRIMARY CARE PHYSICIAN: Roland Serrano DO REFERRING PROVIDER: No referring provider defined for this encounter. ASSESSMENT & PLAN Impression: Right Hip Pain Status Post Right Total Hip Arthroplasty Patient presents for evaluation regarding her right hip. She is status post right primary total of arthroplasty in October [address] Comer at [facility] orthopedics in [facility]. She has greater than 1 year history of slowly progressively worsening right groin and lateral hip and thigh pain. No particular injury or trauma. No issues after surgery in terms of infection, no repeat surgeries. No prior dislocations. She has a an aching dull groin pain particularly with weightbearing activity. She does have some known back issues and has seen spine team back home. No prior spinal surgeries or injections. She recently went to [place] a few weeks ago and had significant trouble walking, as well as riding a bike. Ambulates with no assistive device. She feels that this has significantly worsened from 1 year ago. She apparently did have an infection workup from her index surgeons office which was negative but I do not currently have records of this. No operative reports currently available. On physical examination she has a well-healed posterior lateral hip incision on the right. Mild tenderness palpation of the right greater trochanter. Ambulates with a slightly antalgic gait to the right. Climbs on the exam table without major difficulty. Tolerates passive range of motion of the hip 0-110 with no problem, however does have significant pain with internal rotation external rotation at end range. Pain with resisted hip flexion. She has some dullness to sensation down her RLE, some ttp over her R paraspinal muscles, some mild radiation down her RLE down to her distal thigh. Tenderness to palpation about the mid upper proximal thigh and over the trochanter. No pain with logroll. Radiographs from today demonstrate right total hip arthroplasty hardware, her acetabular component has 1 screw and this appears well fixed. Her femoral component does have signs of aseptic loosening, with a windshield wiper affect approximately, with radiolucencies around the proximal metaphyseal area of the stem, distally there is a stem reaction with a hypertrophic medial cortex with evidence of cortical reaction. We discussed the patient's physical exam and radiographs in detail in the office today. Discussed that the stem is likely loose proximally and potted distally and is causing her femoral component stem pain. Discussed options in terms of treatments with protected weightbearing with crutches / walker, revision in terms of revising her femoral component, need for an ETO to get the stem out and risk of damaging the trochanter, risk of ETO non-union, dislocation, elevated risk of infection in revision scenario, leg leg length discrepancy. Discussed beginning with protected weightbearing with crutches/walker for the next 4 weeks, during this time she will obtain her prior operative reports/implant records, as well as her initial postoperative x-ray images for comparison. Will follow-up with her after we are able to obtain these records. Diagnoses: (Z96.641) Status post right hip replacement (primary encounter diagnosis) (M25.551) Pain in right hip The patient has been ordered: Office Visit on 02/21/25 XR HIP GENERAL 3V PELV/AP/LAT RIGHT XR PELVIS 1V AP COMPLETE BLOOD COUNT *Canceled* SEDIMENTATION RATE, WESTERGREN *Canceled* C-REACTIVE PROTEIN *Canceled* C-REACTIVE PROTEIN COMPLETE BLOOD COUNT SEDIMENTATION RATE, WESTERGREN meloxicam (MOBIC) 15 mg tablet CONSULTS: Total Joint Athroplasty - Risk Calculator Risk Factors for Total Knee Arthroplasty (TKA) Major Risk Factors Obesity normal High: BMI > 40 Moderate: BMI 30-40 Normal: BMI < 30 Diabetes normal High: A1C > 8 Moderate: A1C 7-8 Normal: A1C < 7 Hx of DVT / PE normal High: dx of DVT / PE Normal: no dx of DVT / PE Smoking normal High: Current smoker Normal: Non smoker Narcotics Use normal High:NarxCare >=300 Moderate: 100-299 Normal: 0-99 Depression normal High: PHQ-9 >14 Moderate: PHQ-9 5-14 Normal: PHQ-9 < 5 Area Deprivation Index (VINCENT) Unknown Risk High: VINCENT Score > 75 Moderate: VINCENT 50-75 Normal: VINCENT < 50 Area Deprivation Index (VINCENT) 08/07/2022 06/27/2023 VINCENT Score National Score 70 79 Patient Health Questionnaire (PHQ-9) 09/20/2021 08/04/2024 02/14/2025 PHQ-9 PHQ-2 Score 0 0 0 (0-4) minimal depression, (5-9) mild depression, (10-14) moderate depression, (15-19) moderately severe depression, (20-27) severe depression Bone Density Risk Screen Isabel Waddell is low risk for bone loss based on her age and having no previous diagnoses of osteopenia, osteoporosis, Paget's disease of bone, or cancer of bone. Other risk factors are listed below to determine if they pose a significant risk for bone loss, and if so, recommend ordering a bone densitometry and, upon receiving a result, as needed, order a consult to a bone health specialist (Rheumatology, Endocrinology, or Women's Health) for bone assessment. Risk Factors: History of falls Prednisone or use of systemic steroids Additional Risk Factors Anemia Hemoglobin (g/dL) Date Value 02/21/2025 15.1 09/02/2023 7.5 08/12/2019 13.1 07/12/2019 13.4 Malnutrition: No Malnutrition Screening Tool (MST) score on file- please complete the MST screening tool (click here to open) and refresh the note. ACTIVE PROBLEM LIST Abdominal Pain, Unspecified Site Hypertension History of Thyroid Disease Endometrial Cancer (Hcc) Prolactinoma (Hcc) Radiation Proctitis Other Specified Anemias SUBJECTIVE CHIEF COMPLAINT: Hip Pain HPI: Isabel Waddell is a 64 year old patient with the presenting complaint of New of the Right Hip. Isabel Waddell has had progressive problems with the hip(s) constantly over the past 1 year(s) interfering with activities which include walking 2 blocks, enjoying hobbies, rising from a sitting position, standing for prolonged periods of time, getting in and out of a car, climbing stairs, and safety-increased risk for fall. The problem began limiting activities 1-3 years ago. Isabel reports a current pain level of 10 (Hip-Right). She describes the pain as Aching, Burning, Numbness, Radiating, Shooting, Tenderness, Throbbing, Tingling. The pain is Continuous, and has lasted for 11 Months. Interventions tried include Medication, Cold, Exercise, Reposition, Relaxation, Positioning. PROMIS Physical Function Score Descriptive Summary for PROMIS Physical Function T-score = 38 (Percentile 12) Much difficulty - Do 2 hours of physical labor. Some difficulty - Walk more than a mile (1.6 km). 02/14/2025 PROMIS CAT Physical Function T-Score 38 (moderate dysfunction) Percentile 12 FUNCTIONAL STATUS: Walk indoors, such as around the house (1.75 METs) Do light work around the house, such as dusting or washing dishes (2.70 METs) Take care of self, that is eating, dressing, bathing, using the toilet (2.75 METs) PREVIOUS TREATMENTS: Current Anti-Inflammatory medications: meloxicam Past anti-inflammatory medications (not necessarily for this reason for visit): dexamethasone sodium phosphate, ibuprofen, ketorolac tromethamine, meloxicam Medical: OTC NSAIDS for 3 Months or Greater (Aleve) Physical Therapy: Activities Modified Previous Surgery: RTHA ~ 4 years ago w/ Dr. Dunn REVIEW OF SYSTEMS: GENERAL: Denies fever, chills malaise and weight loss.. PAIN ASSESSMENT: See HPI. HEENT: No recent change in vision or hearing.. CARDIOVASCULAR: Hypertension. RESPIRATORY: Denies SOB, sputum production, dyspnea, COPD and hemoptysis.. GI: Denies GI ulcers, inflammatory disease, ascites or liver disease.. : Denies change in frequency or urgency, kidney disease, and burning with urination.. MUSCULOSKELETAL: See HPI. SKIN: Denies rash or itching.. PSYCHOLOGICAL: Denies uncontrolled depression or anxiety.. NEURO: Denies CVA, seizures, headaches.. ENDOCRINE: Thyroid disease. HEMATOLOGY/LYMPHOLOGY: Denies cancer, bleeding or clotting disorders, anemia,and DVT's.. ALLERGIC/IMMUNOLOGICAL: Denies risks for infection, or recent MRSA infections. 08/12/2019 Malnutrition Screening Tool (MST) Lost Weight Recently Without Trying? If Yes, Amount of Weight Loss(lbs) 0:No Eating Poorly Because of a Decreased Appetite 0:No Weight Loss Score (Calculated) 0 Appetite Score (Calculated) 0 Total MST Score (Calculated) 0 PAST MEDICAL HISTORY Diagnosis Date Arthritis Carpal [...] 3 drinks per month Drug use: Never ALLERGIES: Patient has no known allergies. MEDICATIONS: meloxicam (MOBIC) 15 mg tablet Take 1 tablet by mouth once daily. ferrous sulfate (IRON ORAL) Take 28 mg by mouth once daily. cholecalciferol, vitD3,/vit K2 (VITAMIN D3-VITAMIN K2 ORAL) Take 1 tablet by mouth once daily. Plus vitamin A and K1 MAGNESIUM ORAL Take 240 mg by mouth two times a day. methIMAzole (TAPAZOLE) 10 mg tablet Take 10 mg by mouth two times a day. ibuprofen (MOTRIN) 800 mg tablet Take by mouth q 8 HR. dicyclomine (BENTYL) 10 mg capsule Take 1 [...] link. (Patient not taking: Reported on 06/27/2023) enteric contrast (will be provided with radiology test) For CT CHESTABD/PEL W IVCON Routine order Administer, As Directed One Time Only, via Oral, Rectal, both Oral and Rectal, Enteric Tube, Stoma or Indwelling Catheter, Enteric Contrast as designated per enteric contrast guidelines (Patient not taking: Reported on 06/27/2023) TURMERIC ORAL Take 1,000 mg by mouth once daily. venlafaxine ER (EFFEXOR XR) 150 mg 24 hr capsule Take 150 mg by mouth daily at bedtime. [id number]-FISH OIL-L.CASEI ORAL Take by mouth once daily. Lactobac no.41/Bifidobact no.7 (PROBIOTIC-10 ORAL) Take by mouth once daily. MULTIVITAMIN TAB Take by mouth. B COMPLEX VITAMINS CAP Take one(1) capsule daily. CALCIUM CARBONATE-VIT D3-MINERALS 600 MG-400 UNIT TAB Take 1 tablet by mouth two times a day. OBJECTIVE PHYSICAL EXAM There were no vitals taken for this visit. All other systems deferred. GENERAL: Appears healthy, well-nourished, no deformities. HABITUS: Normal GAIT: Normal, the patient did not have trouble getting onto the exam table. HIP EXAM: Right: Posterior prior incision well healed Non tender over lateral troch and lateral hip ROM: Extension: Normal Flexion: 110 degrees Internal Rotation: 30 degrees External Rotation: 30 degrees Abduction: 40 degrees Adduction: 30 degrees Strength: Abduction 5/5 and Flexion 5/5 Palpation: ttp greater troch Log roll: slight pain Straight leg raise: +groin Neurovascular Status: Sensation Intact and Moves foot and ankle up & down DATA: Most recent hip imaging was completed on 02/21/2025 (XR HIP GENERAL 3V PELV/AP/LAT RIGHT) . Diagnostic tests reviewed for today's visit: Right hip X-Ray: R hip SHAAN hardware in place. R femoral component appears to be wind-shield wipering proximally, potted distally with stem reaction at the tip The following conditions were addressed during the office visit today: SIGNATURE: South Buenrostro MD PATIENT NAME: Isabel Waddell DATE: February 21, 2025 TIME: 11:09 AM documented in this encounter [facility] 01-17-2025 History of Present illness Narrative Images from the original note were not included. Chief Complaint Patient presents with Right Hip - Pain, New Patient Visit RIGHT HIP Left Arm - Results EMG results, saw RB 01/13/2025 HPI Isabel is a 64-year-old female presenting today as a new patient for second opinion evaluation of her right hip. Patient underwent [...] hardware loosening which was negative. Last visit we did refer her to our spine team. Presents today for discussion of their findings as well as for discussion of EMG results. Also presents today for unrelated problem she sustained a fall resulting and forearm pain. Presents today for evaluation of this. Pain worsened with movement relieved with rest did have a fall about 2 weeks ago the pain is improving overall. Does have upcoming trip to [place] excited to go to the [facility]. Did not really have any issues with her forearm prior to this occurring No past medical history on file. Past [...] stump stem is well-seated and well-fixed distally. EMG reviewed: No obvious compressive neuropathy. Mild changes about L5-S1. Consistent with subtle foraminal stenosis. XR forearm left 2 views Result Date: 01/17/2025 Interpreted By: Edward Barros III, STUDY: XR FOREARM LEFT 2 VIEWS; ; 01/17/2025 1:54 pm INDICATION: Signs/Symptoms:pain. ,M79.632 Pain in left forearm COMPARISON: None. ACCESSION NUMBER(S): [id number] ORDERING CLINICIAN: EDWARD BARROS FINDINGS: Three views left forearm: No acute osseous abnormality no fracture or dislocation appreciated. 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 No acute osseous abnormality MACRO: None Signed by: Edward Barros III 01/17/2025 2:00 PM Dictation workstation: [id number] EMG & nerve conduction Impression: Procedures Assessment: 64-year-old female with persistent right hip pain status post total hip arthroplasty in 2020 by outside surgeon, left wrist sprain Treatment plan: Constellation of findings discussed with patient today I did review her EMG results today which were overall unremarkable for compressive neuropathy. She does have some pain about the groin as well as weakness with hip flexion suggestive of may be iliopsoas tendinopathy about prior total hip arthroplasty. Given constellation of findings of atypical findings I do recommend that patient follow-up with [facility] namely Dr. Efrain Cisneros or Maxim Buenrostro for discussion of painful right total hip arthroplasty Dr. Veliz's notes reviewed. Regarding unrelated problem of left forearm pain. We obtain x-rays today. No acute osseous abnormality no fracture dislocation appreciated constellation findings consistent with forearm/wrist sprain. Will provide a removable wrist splint today. Discussed activities to avoid as well as importance of using pain as a guide she will follow-up in 2 months if this fails improve. All of the patient's questions were answered. documented in this encounter [facility] Work Phone: 01-13-2025 History of Present illness Narrative Associated Order(s): L Inj/Asp: R hip joint Post-Procedure Diagnose(s): Trochanteric bursitis of right hip Isabel Waddell is a 64 y.o. female who presents for new patient evaluation of low back pain and right leg radicular symptoms. HPI: 64-year-old female here for new patient evaluation of low back pain and right leg radicular symptoms. Sent by Dr. Barros. She denies any fever chills nausea vomiting night sweats. She has no bowel or bladder complaints. Physical exam: Well-nourished, well kept.No lymphangitis or lymphadenopathy in the examined extremities. Gait normal. Can stand on heels and toes. Examination of the back shows no significant tenderness in the paraspinous musculature. There is no significant decreased range of motion in all directions due to guarding/muscle spasms and pain at extremes. There is good strength and no instability. Examination of the lower extremities reveals no point tenderness, swelling, or deformity. Range of motion of the hips, knees, and ankles are full without crepitance, instability, or exacerbation of pain, except she is severely tender over her right greater trochanteric bursa, also except I can reproduce some of her right lateral hip pain and buttock pain with internal/external rotation of her hip. Strength is 5/5 throughout. No redness, abrasions, or lesions on extremities Gross sensation intact in the extremities. Deep tendon reflexes 2+ bilateral. Clonus negative. Affect normal. Alert and oriented 3. Coordination normal. Imaging studies: We reviewed x-rays of the lumbar spine from November 02, 2024. We reviewed an MRI of the lumbar spine from December 01, 2024. We reviewed a three-phase bone scan from March 19, 2024. Assessment: 64-year-old female here for new patient evaluation of right low back buttock pain and right leg radicular pain that will go all the way to her foot when severe. Sent by Dr. Barros. She had a right total hip replacement [address] Gatica in [place]. She had always had some low-level pain in the right hip but about 6 months ago things really got worse. She is describing pain in the right buttock and the right lateral thigh and hip radiating down into the calf and foot when severe. She has had a bone scan workup, an MRI, and x-rays. She was sent to the spine team to determine if this was a right hip or a back issue. She is severely tender over her right greater trochanteric bursa, when I range her right hip I can reproduce some of her lateral thigh hip and buttock pain. Her MRI does not show any significant stenosis at any level. We have reviewed test today, x-rays, MRI, bone scan. We reviewed the notes from Dr. Barros from December 10, 2024. This is an exacerbation of a chronic problem that is affecting her bodily function. For complete plan and/or surgical details, please refer to Dr. Veliz's portion of this split dictation. -Antoni Carrion PA-C In a lzrb-av-awgu encounter, I performed a history and physical examination, discussed pertinent diagnostic studies if indicated, and discussed diagnosis and management strategies with both the patient and the midlevel provider. I reviewed the midlevel's note and agree with the documented findings and plan of care. Patient sent to the spine team to determine if this patient has a right leg radicular problem. This has been going on for quite some time where she has buttock lateral hip and groin pain. On exam she is exquisitely tender over her right hip bursa which reproduces most of her pain. Range of motion of her right hip gives her that lateral hip pain as well. She does describe pain going all the way down past her knee to her rogers and ankle. Is not uncommon to see that with bursitis. MRI of the lumbar spine was reviewed and is normal. There is no stenosis anywhere in the lumbar spine that would explain any of her leg symptoms. Her leg symptoms are not coming from her back. I think this is a bursitis and may be some other neurologic and/or hip component. This is a new acute problem of uncertain prognosis. Have reviewed the notes of Dr. Barros. Reviewed x-rays and an MRI. Risks/benefits of a cortisone injection including infection, local skin irritation, skin atrophy, calcification, continued pain/discomfort, elevated blood sugar, burning, failure to relieve pain, and possible leg infection. Postop discomfort can be alleviated with additional medications/ice/elevation/rest over the first 24 hours as recommended. After explaining these issues to the patient, it was understood. The injection site was sprayed with ethyl chloride. L Inj/Asp: R hip joint on 01/13/2025 11:23 AM Indications: pain Details: 22 G needle, lateral approach Medications: 40 mg triamcinolone acetonide 40 mg/mL; 9 mL lidocaine 10 mg/mL (1 %) We are going to have her follow back up with Dr. Barros for the right hip issues that she is having. She also recently had a fall and sprained her wrist so she can see him for that as well. She can follow-up with us on a as needed basis. Addendum: 5 minutes after her right hip injection she did not notice any significant relief. This adds further confusion as to the etiology of her pain. Regardless. Do not see anything pointing towards the spine being the cause of her pain. She can follow-up with us on a as needed basis. Geneva Veliz MD Orthopedic surgery documented in this encounter [facility] Work Phone: 12-10-2024 History of Present illness Narrative Chief Complaint Patient presents with Right Hip - New Patient Visit, Pain RIGHT HIP X-RAYS TODAY HPI Isabel is a 64-year-old female presenting today as [...] questions were answered. documented in this encounter [facility] Work Phone: 12-02-2024 History of Present illness Narrative Images from the original note were not included. HISTORY OF PRESENT ILLNESS: EST PT Isabel Waddell is an 64 y.o. @ female. (EST PT) (R) SHAAN 11/02/21 (~3 YRS, 1 MONTH) PT HERE FOR MRI LUMBAR RESULTS XRAY LUMBAR 11/01/24 @ [facility] XRAYS RT HIP 11/01/24 IN [facility] MRI L-SPINE W/O 12/01/24 @[facility] BONE SCAN 03/19/24 @ [facility] S/P MDP 02/13/24 FINISHED PHYSICAL THERAPY [...] in this encounter [facility] 11-26-2024 Evaluation note Diagnosis Onset Date Resolution Hypertension acute November 9:10am Acute bronchitis due to other specified organisms noneactive November 26 9:10am Endometrial cancer acute 2024 10:59am SHERIF (generalized anxiety disorder) acute January 05, 2025 10:59am Graves disease acute December 182024 10:59am Hypertension acute December 10:59am Screening mammogram for breast cancer acute January 05, 10:59am Wellness examination acute 2024 10:59am [facility] Work Phone: 1(303) 239-429312-16-2024 History of Present illness Narrative* IAN De La Torre - 11/01/2024 10:30 AM EST Images from the original note were not included. HISTORY OF PRESENT ILLNESS: EST PT Isabel Waddell is an 64 y.o. @ female. (EST PT) HERE FOR YEARLY CHECK OF (R) SHAAN 11/02/21 (~3 YRS) XRAYS DONE TODAY, 11/01/24 IN EPIC BONE SCAN 03/19/24 @ [facility] S/P MDP 02/13/24 FINISHED PHYSICAL THERAPY ; POST-OP CONTINUES TO HAVE CONSTANT ACHINESS ; DIFFUSE - WORSE WITH ACTIVITY / MOVEMENT ; STATES PAIN LIMITSHER ACTIVITIES. NOTES LIMITED ROM - DENIES ANY [...] Future Standing Expiration Date: 11/01/2025 Scheduling Instructions: [facility] ; PLEASE CALL PT TO SCHEDULE (XRAYS BEING DONE TODAY, 11/01/24 @ [facility]) Order Specific Question: Reason for exam: [...] to rule out L3 radiculopathy on the rightside. A referral to pain management will be [...] for requiring urgent evaluation. documented in this encounterSaint [facility] [id number] History of Present illness Narrative* Leigh Valenzuela, PIPELINE INTEGRITY ENGINEER-DIRECTOR AMBULATORY - 10/07/2024 11:05 AM EST Skin Check Location: Patient requests a full body skin examination Dermatologic history: history of Actinic Keratosis Last visit: 1 year ago Established patient of Leigh Valenzuela NP-C All pertinent medical history, medications, and allergies were reviewed. General Exam: alert, oriented to person, place, and time, normal affect, well appearing Unaccompanied Scalp, Examined Right leg Examined Head, Face Examined Left leg Examined Neck Examined Right foot Examined Chest Examined Left foot Examined Back Examined Buttocks Examined Abdomen Examined Digits,nails: Examined Right arm Examined Patient wearing nail spanish, Denies dark streaks on toenails Left arm [...] Next Visit: 1 year documented in this encounterSaint [facility] Health [id number] NoteHNO ID: [id number] Author: MELODY MENA APRN.CNP Service: ? Author Type: Nurse Practitioner Type: Progress Notes Filed: 08/21/2024 11:16 Note Text: Attempted to call patient, no answer, message left to call back. Phone message also sent by Ernesto Chacko CNP. Will send mychart message. Melody Mena APRN.CNPUniversity [facility]10-03-[facility] History of Present illness Narrative* Melody Mena APRN.CNP - 08/19/2024 1:51 PM EDT Attempted to call patient, no answer, message left to call back. Phone message also sent by Ernesto Chacko CNP. Will send mychart message. Melody Mena APRN.CNP documented [facility] Telephone encounter Note * Telephone Encounter - Ernesto Chacko APRN.CNP - 08/18/2024 10:39 AM EDT Message left for patient. Pap test inconclusive. She should call the office if she has persistent bleeding. MRI if symptoms persist. Ernesto Chacko APRN.CNP [facility] Work Phone: 1(636) 821-463210-02-2024 Miscellaneous Notes* Telephone Encounter - Ernesto Chacko APRN.CNP - 08/18/2024 10:39 AM EDT Message left for patient. Pap test inconclusive. She should call the office if she has persistent bleeding. MRI if symptoms persist. Ernesto Chacko APRN.CNP documented in this encounterSelect [facility]09-30-2024 NoteUnsatisfactory for evaluation. Limited cellularity.[facility] Work Phone: 1(270) 889-668709-19-2024 History of Present illness Narrative* Henry Ramos MD - 08/05/2024 11:10 AM EDT Gynecologic Oncology [facility] Follow up visit Date of service: [...] differentiation, FIGO grade 2. Neg LVSI, 13% NE pT1a (IA): Tumor limited to endometrium or invades less than 1/2 of the myometrium 05/25/2021 Vaginal biopsy Vagina, biopsy - Consistent with endometrioid adenocarcinoma (see comment). GZ/ka 05/28/2021 COMMENT The tumor cells are diffusely and strongly positive for immunohistochemical stain for Seminary 8, supporting the above diagnosis. The patient [...] ORAL)^Take 1 tablet by mouth once daily. Plusvitamin A and K1^Disp: ^Rfl: MAGNESIUM ORAL^Take 240 [...] by mouth daily at bedtime. ^Disp: ^Rfl: XSTD1-QEH-QGS-FISH OIL-L.CASEI ORAL^Take by mouth once daily.^Disp: ^Rfl: Lactobac no.41/Bifidobact no.7 (PROBIOTIC-10 ORAL)^Take by mouth once daily.^Disp: ^Rfl: MULTIVITAMIN TAB^Take by mouth.^Disp: ^Rfl: 0 B COMPLEX VITAMINS CAP^Take one(1) capsule daily.^Disp: ^Rfl: 0 CALCIUM CARBONATE-VIT D3-MINERALS 600 MG-400 UNIT TAB^Take 1 tablet by mouth two times a day.^Disp:^Rfl: 0 acetaminophen (TYLENOL) 500 mg tablet^Take 1-2 [...] (fully active, able to carry on all pre- disease performance without restriction). PHYSICAL EXAM: The sensitive examination was discussed with the Patient or Patient's Authorized Gym Supervisor. Asapplicable, any other physician, advance practice provider, medical student, or other health professional student that will be observing or involved in the sensitive examination for educational or training purposes was discussed with the Patient or Authorized Gym Supervisor. The Patient or Authorized Gym Supervisor has agreed to proceed with the sensitive [...] EXTREMITIES: Not tender. No ulcers or swelling. Other Wood Processing Machine Operator for exam: Melody Mena APRN.DIRECTOR AMBULATORY RESULTS: CA 125 (U/mL) Date Value 12/13/2021 [...] will review with PCP Dee Dee Carter APRN.DIRECTOR AMBULATORY 05/30/2021 Distance Health Visit 61 yo female [...] any questions or concerns. Dee Dee Carter APRN.DIRECTOR AMBULATORY 06/06/2021 61 yo female with h/o Stage [...] hyperthyroidism, advised follow up with PCP and Bullard Operator. Ernesto Chacko APRN.DIRECTOR AMBULATORY 03/13/2022 Recurrent Endometrial cancer with recurrence in [...] Recommend she start following with a [facility] baggagemaster for her rectal bleeding. We will assistwith [...] which included preparing to see the patient, gauj-nu-mhky patient care, completing clinical documentation, obtaining and/or reviewing separately obtained history, performing a medically appropriate examination, counseling and educating the pat ient/family/caregiver, ordering medications, tests, or procedures, independently interpreting [...] and in my presence. I have reviewed thechart and discharge instructions (if applicable) and agree that the record reflects my personal perf ormance and is accurate and complete. Electronically Signed: Henry Ramos MD. August 16, 2024 12:40 PM documented in this encounterSelect [facility]09-19-2024 NoteHNO ID: [id number] Author: HENRY RAMOS MD Service: ? Author Type: Physician Type: Progress Notes Filed: 08/16/2024 12:41 Note Text: Gynecologic Oncology [facility] Follow up visit Date of service: [...] differentiation, FIGO grade 2. Neg LVSI, 13% NE pT1a (IA): Tumor limited to endometrium or invades less than 1/2 of the myometrium 05/25/2021 Vaginal biopsy Vagina, biopsy - Consistent with endometrioid adenocarcinoma (see comment). GZ/ka 05/28/2021 COMMENT The tumor cells are diffusely and strongly positive for immunohistochemical stain for Seminary 8, supporting the above diagnosis. The patient [...] by mouth daily at bedtime. Disp: Rfl: HINM2-DWX-JWL-FISH OIL-L.CASEI ORALTake by mouth once daily.Disp: Rfl: Lactobac no.41/Bifidobact no.7 (PROBIOTIC-10 ORAL)Take by mouth once daily.Disp: Rfl: MULTIVITAMIN TABTake by mouth.Disp: Rfl: 0 B COMPLEX VITAMINS CAPTake one(1) capsule daily.Disp: Rfl: 0 CALCIUM CARBONATE-VIT D3-MINERALS 600 MG-400 UNIT TABTake 1 tablet by mouth two times a day.Disp: Rfl: 0 acetaminophen (TYLENOL) 500 mg tabletTake 1-2 tablets by mouth (more content not included)...[facility]09-18-2024 Telephone encounter Note* Telephone Encounter - Kathryn Painter RN - 08/04/2024 2:55 PM EDT Called pt regarding msg. Pt c/o spotting. Pt has not been using a pad or panty liner. States that she is having some bright red blood with wiping. Pt accepted f/u appt to RTC with Dr. Ramos for tomorrow 08/05 at 11:10am. Msg sent to scheduling. [facility]09-18-2024 Miscellaneous Notes* Telephone Encounter - Kathryn Painter RN - 08/04/2024 2:55 PM EDT Called pt regarding msg. Pt c/o spotting. Pt has not been using a pad or panty liner. States that she is having some bright red blood with wiping. Pt accepted f/u appt to RTC with Dr. Ramos for tomorrow 08/05 at 11:10am. Msg sent to scheduling. documented in this encounterSelect [facility]12-07-2023 Evaluation note* Encounter Date Diagnosis Assessment Notes Treatment Notes Treatment Clinical Notes Oct, Iron deficiency anemia due to chronic blood loss (ICD-10 - D50.0) Oct, Decreased thyroid stimulating hormone (TSH) level (ICD-10 - R79.89) Oct, Pulmonary hypertension (ICD-10 - I27.20) [facility] Other [id number] History of Present illness Narrative* [place] [...] of treatment plan: low documented in this encounterSelect [facility]11-05-2023 Evaluation note* Encounter Date Diagnosis Assessment Notes Treatment Notes Treatment Clinical Notes Sep, Iron deficiency anemia due to chronic blood loss (ICD-10 - D50.0) Sep, 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) [facility] Other 11-01-2023 Evaluation note* Encounter Date Diagnosis Assessment Notes Treatment Notes Treatment Clinical Notes Sep, Elevated liver enzymes (ICD-10 - R74.8) Sep, Cholestasis (ICD-10 - K83.1) Sep, Thyrotoxicosis 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 storm, 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 - E05.90) [facility] Other 10-30-2023 Evaluation note* Encounter Date Diagnosis Assessment Notes Treatment Notes Treatment Clinical Notes Aug, Decreased thyroid stimulating hormone (TSH) level (ICD-10 - R79.89) [facility] Other 10-27-2023 Evaluation note* Encounter Date Diagnosis [...] Ferritin May be candidate for Fe IV [facility] Other 10-18-2023 Evaluation note* Encounter Date Diagnosis Assessment Notes Treatment Notes Treatment Clinical Notes Aug, Radiation proctitis (ICD-10 - K62.7) Aug, Iron deficiency anemia due to chronic blood loss (ICD-10 - D50.0) [facility] Other 10-16-2023 Evaluation note* Encounter Date Diagnosis Assessment Notes Treatment Notes Treatment Clinical Notes Aug, Dilated cardiomyopathy (ICD-10 - I42.0) Echo: LVEF normal, RVSP 31, LAE [facility] Other 10-13-2023 History and physical note* Rachel Galan, BETTY.DIRECTOR AMBULATORY - 08/29/2023 11:00 AM EDT COLON AND [...] will update team about CBC once drawn. Rachel Galan APRN.CNP Pelvic Floor Colorectal Surgery Risk of morbidity, mortality and/or complications of treatment plan: high documented in this encounterSelect [facility]10-13-2023 History of Present illness Narrative* Heidi Lindquist MD - 08/29/2023 10:00 AM EDT Images from the original note were not included. Ms. Waddell is a 63 year old female who [facility] Res[facility] [place]. 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 Hobbies:Biking Vacation: [place], [place] No significant exposure history except local [...] MULTIVITAMIN TAB^Take one(1) tablet daily.^Disp: ^Rfl: 0 HUXW5-TKS-FQE-FISH OIL-L.CASEI ORAL^Take by mouth once daily.^Disp: ^Rfl: [...] personally reviewed by me Data Reviewed from [facility] (in addition to that noted in [...] MD Pulmonary and Critical Care Fellow Respiratory [place] Staff note: I have personally interviewed and [...] Hilton Adame MD 08/29/2023 documented in this encounterSelect [facility]10-13-2023 History of Present illness Narrative* Sveta Roman, TOWER EQUIPMENT REPAIRER - 08/29/2023 9:52 AM EDT PULM FUNCTION SMARTBLOCK: Provider: Mike Presley MD Spirometry: 1 DLCO: 1 LV - Box: 1 documented in this encounterSelect [facility]10-13-2023 History of Present illness Narrative* Marshal [...] 29, 2023 9:10 AM documented in this encounterSelect [facility]10-10-2023 History of Present illness Narrative* Gilberto Beth - 08/26/2023 4:16 PM EDT Sang to pair w dlco/lv on upcoming f/u visit documented in this encounterSelect Medical [facility]10-06-2023 NoteHNO ID: [id number] Author: Nuvia Grewal RT(R) Service: Radiology Author Type: Canal Equipment Mechanic Type: Progress Notes Filed: 08/22/2023 8:34 AM [...] BY: RT Seth(R) August 22, 2023 8:33 AMBlue [facility], Inc.[id number] History of Present illness Narrative* Nuvia Grewal [...] 22, 2023 8:33 AM documented in this encounterSelect [facility]09-18-2023 Evaluation note* Encounter Date Diagnosis Assessment [...] symptoms. Will initiate antibiotics and have called [facility]. Since her symptoms developed > 5 days ago, no Paxlovid has been prescribed Jul, Bronchitis, not specified as acute or chronic (ICD-10 - J40) Instructed to use Robitussin or Mucinex for cough, saline or Flonase NS for congestion, Tylenol for pain and fever. [facility] Other 09-05-2023 Miscellaneous Notes* Telephone Encounter - Divya Karimi - 07/22/2023 3:17 PM EDT Isabel Waddell accepts 09/01 and 09/02 dates for preop and surgery documented in this encounterSelect [facility]09-05-2023 Miscellaneous Notes* Telephone Encounter - Enid Baker - 07/22/2023 2:48 PM EDT [phone] Patient calling to reschedule her EUA. documented in this encounterSelect Medical [facility]08-22-2023 Evaluation note* Encounter Date Diagnosis Assessment Notes Treatment Notes Treatment Clinical Notes Jun, SHERIF (generalized anxiety disorder) (ICD-10 - F41.1) [facility] Other 08-18-2023 History and physical note* oSuth Saba DO - 07/04/2023 9:00 AM EDT [...] reports regular bowel movements. 03/05/23 Cherelle Medina, DIRECTOR AMBULATORY: Isabel Waddell is a 62 year old [...] 150 mg by mouth daily at bedtime. BOAE0-VPG-DWJ-FISH OIL-L.CASEI ORAL Take by mouth once daily. [...] mL injection (DEFINITY) INTRAVENOUS DIRECTED PRN Heidi Lindquist MD sodium chloride 0.9 % (flush) 10 mL (BD POSIFLUSH) 10 mL INTRAVENOUS DIRECTED PRN Heidi Lindquist MD ALLERGIES No Known Allergies Review of [...] Documents Reviewed/ordered: Review of prior notes from [facility], pulmonary medicine Review of prior operative reports [...] of treatment plan: high documented in this encounterSelect [facility]08-11-2023 History of Present illness Narrative* Heidi Lindquist MD - 06/27/2023 10:29 AM EDT Images from the original note were not included. Ms. Waddell is a 63 year old female who [facility] Res[facility] [place]. Consultation requested by Self. 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 Silica: No significant exposure. Dane: No significant exposure. Organic HP antigen: No [...] 150 mg by mouth daily at bedtime. NRBW1-PBY-FAL-FISH OIL-L.CASEI ORAL Take by mouth once daily. [...] personally reviewed by me Data Reviewed from [facility] (in addition to that noted in [...] MD Pulmonary and Critical Care Fellow Respiratory [place] STAFF ATTENDING NOTE I have personally interviewed [...] concur. Changes, if any, are noted. Mike Gates MD 06/29/2023 documented in this encounterSelect [facility]08-11-2023 History of Present illness Narrative* Dayan Marley RRT - 06/27/2023 10:26 AM EDT PULM FUNCTION SMARTBLOCK: Provider: Davis Page MD Spirometry: 1 System: 3 - [id number] documented in this encounterSelect [facility] Evaluation note* Encounter Date Diagnosis Assessment [...] and feet daily for blisters and ulcerations. [facility] Other 06-27-2023 Evaluation note* Encounter Date Diagnosis Assessment Notes Treatment Notes Treatment Clinical Notes Apr, History of total right hip replacement (ICD-10 - Z96.641) [facility] Other 06-07-2023 Evaluation note* Encounter Date Diagnosis [...] F41.1) Healthy diet, exercise and keep active [facility] Other 2023 Evaluation note* Encounter Date Diagnosis Assessment Notes Treatment Notes Treatment Clinical Notes March, Mild intermittent asthma without complication (ICD-10 - J45.20) [facility] Other 05-05-2023 Evaluation note* Encounter Date Diagnosis Assessment Notes Treatment Notes Treatment Clinical Notes March, Dyspnea on exertion (ICD-10 - R06.09) [facility] Other 04-24-2023 Evaluation note* Encounter Date Diagnosis Assessment Notes Treatment Notes Treatment Clinical Notes Feb, Shortness of breath (ICD-10 - R06.02) Feb, Subacute cough (ICD-10 - R05.2) [facility] Other 04-19-2023 Instructions* Patient Instructions* Cherelle Medina APRN.DIRECTOR AMBULATORY - 03/05/2023 9:47 AM EDT Images from the original note were not included. Thank you for seeing me in clinic today. As we discussed, my recommendations are as follows: 1.Colonoscopy If you have any questions about the above treatment plan, please do not hesitate to call the officeor send me a [employer] message. Bowel Preparation Instructions for: Miralax-Gatorade Preparations [...] If you do not have a responsible lunch truck driver (family member or friend) withyou to take you home, your exam cannot be done with sedation and will be cancelled. Please bring a list of all of your current medications, including any Owxd-hbc-Dpiicoa medications with you. Medications If you take [...] your exam. 2 10/2019 documented in this encounterSelect [facility]04-19-2023 History and physical note * Cherelle [...] Abs Lymph 1.00 - 4.00 k/uL 1.31 Upshur% % 11.1 Abs Upshur <0.87 k/uL 0.50 Eosin% % 3.1 Abs [...] 150 mg by mouth daily at bedtime. [id number]-MOW-FISH OIL-L.CASEI ORAL Take by mouth once daily. [...] -radiation proctitis?? This note was dictated using [employer] speech recognition software and may contain some errors that were a result of the program not accurately transcribing what was dictated. Cherelle Medina APRN.MONSERRAT documented in this encounterSelect [facility]03-10-2023 Evaluation note* Encounter Date Diagnosis Assessment Notes Treatment Notes Treatment Clinical Notes Jan, Acute bronchitis due to other specified organisms (ICD-10 - J20.8) Instructed to use Robitussin or Mucinex for cough, saline or Flonase NS for congestion, Tylenol for pain and fever. [facility] Other 03-06-2023 Evaluation note* Encounter Date Diagnosis [...] weeks for the cough to go away [facility] Other 02-17-2023 History of Present illness Narrative* Henry Ramos MD - 01/03/2023 3:20 PM EST Gynecologic Oncology [facility] Follow up visit Date of service: [...] differentiation, FIGO grade 2. Neg LVSI, 13% NE pT1a (IA): Tumor limited to endometrium or invades less than 1/2 of the myometrium 05/25/2021 Vaginal biopsy Vagina, biopsy - Consistent with endometrioid adenocarcinoma (see comment). GZ/ka 05/28/2021 COMMENT The tumor cells are diffusely and strongly positive for immunohistochemical stain for Seminary 8, supporting the above diagnosis. The patient [...] 150 mg by mouth daily at bedtime. [id number]-COG-FISH OIL-L.CASEI ORAL Take by mouth once daily. [...] has a trip planned to [facility] next week for 10 days. PHYSICAL EXAM: [...] or swelling. Deep tendon reflexes are present Other Wood Processing Machine Operator for exam: Shelli Villarreal APRN.CNP RESULTS: CA [...] review with PCP 05/30/2021- Dee Dee Carter APRN.DIRECTOR AMBULATORY (distance health visit) 61 yo female with [...] hyperthyroidism, advised follow up with PCP and Bullard Operator. Ernesto Chacko APRN.DIRECTOR AMBULATORY 03/13/2022 Recurrent Endometrial cancer with recurrence in [...] ferritin. Recommend she start following with a [facility] baggagemaster for her rectal bleeding. We will assistwith [...] 03, 2023 4:37 PM documented in this encounterSelect [facility]02-08-2023 Miscellaneous Notes* Telephone Encounter - Aretha [...] at 12/25/2022 12:04 PM EST ----- Regarding: [place] Patient bleeding and clotting almost daily since Colonoscopy. September was the Colonoscopy. Concerned and would like to know if she should schedule an appointment. [phone] documented in this encounterSelect [facility]11-10-2022 Nurse Note* Francisca Gómez RN - [...] RN In Department: GASTROENTEROLOGY documented in this encounterSelect Medical [facility]11-10-2022 Miscellaneous Notes* Sedation Documentation - Aretha Deluna RN - 09/26/2022 12:00 PM EST Grounding pad placed at right flank. Skin Intact. LOT#[id number]. documented in this encounterSelect [facility]11-03-2022 Miscellaneous Notes* Telephone Encounter - Kelly Ch MA - 09/19/2022 3:49 PM EDT Attempted to reach the patient at the contact number that they provided [phone] (home) . Unable to speak with patient so without identifying the patient the following information was left on their voice mail: Date of procedure, location and report time Prep instructions A message was left informing the patient/patient account maintenance representative they must have a responsible adult [...] Number to call with questions or concerns [phone] Number to call to cancel their procedure [phone] Kelly Ch MA documented in this encounterSelect Medical [facility]09-21-2022 Instructions* Patient Instructions* Ernesto Chacko APRN.MONSERRAT [...] If you do not have a responsible lunch truck driver (family member or friend) with [...] your exam. 2 10/2019 documented in this encounterSelect [facility]09-21-2022 History of Present illness Narrative* Henry Ramos MD - 08/07/2022 3:20 PM EDT Gynecologic Oncology [facility] Follow up visit Date of service: [...] differentiation, FIGO grade 2. Neg LVSI, 13% NE pT1a (IA): Tumor limited to endometrium or invades less than 1/2 of the myometrium 05/25/2021 Vaginal biopsy Vagina, biopsy - Consistent with endometrioid adenocarcinoma (see comment). GZ/ka 05/28/2021 COMMENT The tumor cells are diffusely and strongly positive for immunohistochemical stain for Seminary 8, supporting the above diagnosis. The patient [...] 150 mg by mouth daily at bedtime. [id number]-CHE-LVN-FISH OIL-L.CASEI ORAL Take by mouth once daily. [...] groin. LOWER EXTREMITIES: No swelling or edema. Other Wood Processing Machine Operator for exam: Promise Mclaughlin MA RESULTS: 05/25/2021 - VAGINAL BIOPSY Vagina, biopsy - Consistent with endometrioid adenocarcinoma (see comment). GZ/ka 05/28/2021 COMMENT The tumor cells are diffusely and strongly positive for immunohistochemical stain for Seminary 8, supporting the above diagnosis. The patient [...] dedicated report for findings in the abdomen Manufacturing Analyst (topogram) images: None CA 125 (U/mL) Date Value 12/13/2021 9 06/04/2021 8 07/12/2019 15 ASSESSMENT & PLAN: 05/25/2021-Dee Dee Carter APRN.DIRECTOR AMBULATORY IA endometrioid type endometrial adenocarcinoma, FIGO grade [...] review with PCP 05/30/2021- Dee Dee Carter APRN.DIRECTOR AMBULATORY (distance health visit) 61 yo female with [...] hyperthyroidism, advised follow up with PCP and Bullard Operator. Ernesto Chacko APRN.DIRECTOR AMBULATORY 03/13/2022 Recurrent Endometrial cancer with recurrence in [...] 07, 2022 4:19 PM documented in this encounterSelect [facility]04-27-2022 History of Present illness Narrative* Henry Ramos MD - 03/13/2022 2:50 PM EDT Gynecologic Oncology [facility] Follow up visit Date of service: [...] differentiation, FIGO grade 2. Neg LVSI, 13% NE pT1a (IA): Tumor limited to endometrium or invades less than 1/2 of the myometrium 05/25/2021 Vaginal biopsy Vagina, biopsy - Consistent with endometrioid adenocarcinoma (see comment). GZ/ka 05/28/2021 COMMENT The tumor cells are diffusely and strongly positive for immunohistochemical stain for Seminary 8, supporting the above diagnosis. The patient [...] 150 mg by mouth daily at bedtime. FXLC1-CQI-EZI-FISH OIL-L.CASEI ORAL Take by mouth once daily. [...] absent LOWER EXTREMITIES: No swelling or edema. Other Wood Processing Machine Operator for exam: Modlo RESULTS: 05/25/2021 - VAGINAL BIOPSY Vagina, biopsy - Consistent with endometrioid adenocarcinoma (see comment). GZ/ka 05/28/2021 COMMENT The tumor cells are diffusely and strongly positive for immunohistochemical stain for Seminary 8, supporting the above diagnosis. The patient [...] dedicated report for findings in the abdomen Manufacturing Analyst (topogram) images: None CA 125 (U/mL) Date Value 12/13/2021 9 06/04/2021 8 07/12/2019 15 ASSESSMENT & PLAN: 05/25/2021-Dee Dee Carter APRN.DIRECTOR AMBULATORY [place] endometrioid type endometrial adenocarcinoma, FIGO grade [...] review with PCP 05/30/2021- Dee Dee Carter APRN.DIRECTOR AMBULATORY (distance health visit) 61 yo female with [...] hyperthyroidism, advised follow up with PCP and Bullard Operator. Ernesto Chacko, BETTY.DIRECTOR AMBULATORY 03/13/2022 Recurrent Endometrial cancer with recurrence in [...] Past Histories independently gathered by the clinical health support specialist and the remaining scribed note accurately describes my personal service to the patient. documented in this encounterSelect [facility]01-27-2022 History of Present illness Narrative* Leigh [...] 13, 2021 9:35 AM documented in this encounterSelect Medical [facility] HospitalEvaluation note* Diagnosis Dizziness- Primary Dizziness and giddiness Dehydration documented in this encounter [employer] Phone: evaluation note* Diagnosis Recurrent carcinoma of endometrium (HCC)- Primary Malignant neoplasm of corpus uteri, except isthmus Vaginal atrophy Postmenopausal atrophic vaginitis Foreshortening of vagina documented in this encounter [facility]* Diagnosis Recurrent carcinoma of endometrium (HCC)- Primary Malignant neoplasm of corpus uteri, except isthmus Radiation proctitis Other specified disorder of rectum and anus Foreshortening of vagina Endometrial cancer (HCC) Malignant neoplasm of corpus uteri, except isthmus Vaginal atrophy Postmenopausal atrophic vaginitis Rectal bleeding Hemorrhage of rectum and anus documented in this [facility]* Diagnosis History of thyroid disease- Primary Personal history of other endocrine, metabolic, and immunity disorders Rectal bleeding Hemorrhage of rectum and anus documented in this encounter [facility]* Diagnosis Recurrent carcinoma of endometrium (HCC)- Primary Malignant neoplasm of corpus uteri, except isthmus Radiation proctitis Other specified disorder of rectum and anus Blood per rectum Hemorrhage of rectum and anus documented in this encounter [facility] noteNo [email or web address] Other Evaluation note* Diagnosis Rectal bleeding- Primary Hemorrhage of rectum and anus documented in this encounter [facility]* Diagnosis Radiation proctitis- Primary Other specified disorder of rectum and anus documented in this encounter [facility]* Diagnosis Dyspnea, unspecified type- Primary documented in this encounter [facility]* Diagnosis 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) documented in this encounter [facility]* Diagnosis Radiation proctitis- Primary Other specified disorder of rectum and anus documented in this encounter [facility]* Diagnosis Endometrial cancer (HCC)- Primary Malignant neoplasm of corpus uteri, except isthmus Radiation proctitis Other specified disorder of rectum and anus Radiation proctitis Other specified disorder of rectum and anus documented in this encounter [facility]* Diagnosis Radiation proctitis- Primary Other specified disorder of rectum and anus documented in this encounter [facility]* Diagnosis ILD (interstitial lung disease) (HCC)- Primary Postinflammatory pulmonary fibrosis Radiation proctitis Other specified disorder of rectum and anus documented in this encounter [facility]* Diagnosis ILD (interstitial lung disease) (HCC) Postinflammatory pulmonary fibrosis Radiation proctitis Other specified disorder of rectum and anus documented in this encounter [facility]* Diagnosis Interstitial pulmonary disease (HCC) Postinflammatory pulmonary fibrosis Radiation proctitis Other specified disorder of rectum and anus documented in this encounter [facility]* Diagnosis Dyspnea and respiratory abnormalities- Primary Other dyspnea and respiratory abnormality Calcified nodule Localized superficial swelling, mass, or lump Iron deficiency anemia due to chronic blood loss Iron deficiency anemia secondary to blood loss (chronic) Radiation proctitis Other specified disorder of rectum and anus documented in this encounter [facility]* Diagnosis Dyspnea, unspecified type Radiation proctitis Other specified disorder of rectum and anus documented in this encounter [facility]* Diagnosis Pre-op evaluation- Primary Preoperative examination, unspecified Radiation proctitis Other specified disorder of rectum and anus documented in this encounter [facility]* Diagnosis Interstitial pulmonary disease (HCC) Postinflammatory pulmonary fibrosis documented in this encounter [facility]* Diagnosis Radiation proctitis- Primary Other specified disorder of rectum and anus Endometrial cancer (HCC) Malignant neoplasm of corpus uteri, except isthmus documented in this encounter [facility]* Diagnosis Onset Date Resolution Status Graves disease acute Hypertension acute Thyrotoxicosis acute [facility] Work Phone: Evaluation note* Diagnosis Preoperative [...] rectum and anus documented in this encounter [facility]* Diagnosis Preoperative examination- Primary Preoperative examination, unspecified Endometrial cancer (HCC) Malignant neoplasm of corpus uteri, except isthmus Essential hypertension Unspecified essential hypertension History of thyroid disease Personal history of other endocrine, metabolic, and immunity disorders Malignant neoplasm of endometrium (HCC) Malignant neoplasm of corpus uteri, except isthmus documented in this encounter [facility]* Diagnosis Preoperative examination- Primary Preoperative examination, unspecified Endometrial cancer (HCC) Malignant neoplasm of corpus uteri, except isthmus Essential hypertension Unspecified essential hypertension History of thyroid disease Personal history of other endocrine, metabolic, and immunity disorders NO SHOW- Primary documented in this encounter [facility]Evaluation [facility]* Diagnosis Seborrheic keratosis- Primary Melanocytic nevus of trunk Benign neoplasm of skin of trunk, except scrotum [facility] History of right hip replacement- Primary Acute pain of right hip Lumbar radiculopathy, right documented in this encounter [facility] HealthcareEvaluation noteNo assessment information availableOhiohealth [facility] Work Phone: Evaluation note* Diagnosis Acute pain of right hip- Primary History of right hip replacement Lumbar radiculopathy, right Sacroiliac joint pain Disorders of sacrum Right leg weakness Muscle weakness (generalized) Right leg paresthesias Disturbance of skin sensation [facility] Diagnosis Lumbar radiculopathy- Primary Thoracic or lumbosacral neuritis or radiculitis, unspecified Right hip pain Pain in joint, pelvic region and thigh documented in this encounter [facility] Work Phone: Evaluation note* Diagnosis Lumbar radiculopathy Thoracic or lumbosacral neuritis or radiculitis, unspecified documented in this encounter [facility] Work Phone: Evaluation note* Diagnosis Lumbar pain- Primary Lumbago Trochanteric bursitis of right hip documented in this encounter [facility] Work Phone: Evaluation note* Diagnosis Chronic hip pain after total replacement of right hip joint- Primary Left forearm pain Left forearm pain documented in this encounter [facility] Work Phone: Evaluation note* Diagnosis Left forearm pain documented in this encounter [facility] Work Phone: Evaluation note* Diagnosis Preoperative examination- Primary Preoperative examination, unspecified Endometrial cancer (HCC) Malignant neoplasm of corpus uteri, except isthmus Essential hypertension Unspecified essential hypertension History of thyroid disease Personal history of other endocrine, metabolic, and immunity disorders Status post right hip replacement- Primary Hip joint replacement by other means Pain in right hip Pain in joint, pelvic region and thigh Pain in right hip Pain in joint, pelvic region and thigh documented in this encounter [facility]* Diagnosis Preoperative examination- Primary Preoperative examination, unspecified Endometrial cancer (HCC) Malignant neoplasm of corpus uteri, except isthmus Essential hypertension Unspecified essential hypertension History of thyroid disease Personal history of other endocrine, metabolic, and immunity disorders Pain in right hip Pain in joint, pelvic region and thigh documented in this encounter [facility] general Narrative - Reported* Type Description Date Medical History menopause Medical History endometrial cancer hx Surgical History Bilateral Knee Scope Surgical History Bilateral Shoulder Scope Surgical History Bilateral Carpal Tunnel Surgical History x 3 Surgical History Pituatary Tumor Surgical History hysterectomy Surgical History right thumb excision of trapezi um 09/14/2020 [facility] Other [facility] general Narrative - Reported* Type Description Date Medical History menopause Medical History endometrial cancer hx Surgical History Bilateral Knee Scope Surgical History Bilateral Shoulder Scope Surgical History Bilateral Carpal Tunnel Surgical History x 3 Surgical History Pituatary Tumor Surgical History hysterectomy Surgical History right thumb excision of trapezi um 09/14/2020 Hospitalization History see surgical history [facility] Other [facility] general Narrative - Reported* Type Description Date Medical History menopause Medical History endometrial cancer hx Medical History Dilated Cardiomyopathy Surgical History Bilateral Knee Scope Surgical History Bilateral Shoulder Scope Surgical History Bilateral Carpal Tunnel Surgical History x 3 Surgical History Pituatary Tumor Surgical History hysterectomy Surgical History right thumb excision of trapezi um 09/14/2020 Hospitalization History see surgical history [facility] Other [facility] [employer] general Narrative - Reported* Type Description Date Medical History menopause Medical History endometrial cancer hx Medical History Dilated Cardiomyopathy Surgical History Bilateral Knee Scope Surgical History Bilateral Shoulder Scope Surgical History Bilateral Carpal Tunnel Surgical History x 3 Surgical History Pituatary Tumor Surgical History hysterectomy Surgical History right thumb excision of trapezi um 09/14/2020 Surgical History Sigmoidoscopy 08/2023 Hospitalization History see surgical history [facility] Other [facility] general Narrative - Reported* Type Description Date [...] Sigmoidoscopy 08/2023 Hospitalization History see surgical history [facility] Other Hospital Discharge instructions* Attachments The following attachments cannot be sent through Care Everywhere. * Dehydration (Anguillan) * Oral Rehydration (Anguillan) [facility] Work [facility]: reason for referral (narrative)* Outpatient Procedure (Routine) - Closed Specialty Diagnoses / Procedures Referred By Contac t Referred To Contact [facility] Diagnoses Rectal bleeding Procedures COLONOSCOPY SCREENING COLONOSCOPY FLX DX W/COLLJ SPEC WHEN PFRMD Ernesto Chacko APRN.CNP [address] [place] [address] [facility] [place] [address] [place] [address] Referral ID Status Reason Start Date Expiration Date V isits Requested Visits Authorized [id number] Closed Auto-Generate d Referral 08/07/2022 08/07/2023 1 1 [facility] for referral (narrative)* Outpatient Procedure (Routine) - Pending Review Specialty Diagnoses / Procedures Referred By Contac t Referred To Contact [facility] Diagnoses Rectal bleeding Procedures COLONOSCOPY (THERAPEUTIC) COLONOSCOPY FLX ABLATION TUMOR POLYP/OTHER Cherelle Mendoza APRN.DIRECTOR AMBULATORY [address] [place] [address] [facility] [address] [place] [id number] Referral ID Status Reason Start Date Expiration Date Visits Requested Visits Authorized [id number] Pending Review Auto-Generat ed Referral 03/05/2023 03/05/2024 1 1 [facility] for referral (narrative)* Outpatient Procedure (Routine) - Authorized Specialty Diagnoses / Procedures Referred By Contac t Ref[facility] Diagnoses Other secondary pulmonary hypertension (HCC) Procedures ECHO ECHO TTHRC R-T 2D W/WOM-MODE COMPL SPEC&COLR D Mike Presley MD [address] [place] [address] [facility] [place] [address] [place] [address] Referral ID Status Reason Start Date Expiration Date Visits Requested Visits Authorized [id number] Authorized Auto-Generat ed Referral 06/27/2023 06/26/2024 1 1 * Diagnostic Procedure Only (Routine) - Pending Review Specialty Diagnoses / Procedures Referred By Kelly t Referred To Contact [facility] Diagnoses Other secondary pulmonary hypertension (HCC) Procedures NM LUNG VENT / PERF VQ PULMONARY VENTILATION & PERFUSION IMAGING Mike Presley MD [address] [place], [place] [id number] Molecular & [facility] [address] [place] [address] Referral ID Status Reason Start Date Expiration Date Visits Requested Visits Authorized [id number] Pending Review Auto-Generat ed Referral 06/27/2023 07/26/2024 1 1 * Outpatient Procedure (Routine) - Pending Review Specialty Diagnoses / Procedures Referred By Kelly alberts Referred To Contact [facility] Diagnoses Interstitial pulmonary disease (HCC) Procedures LUNG VOLUMES Mike Presley MD [address] [place], [place] [id number] [facility] [place] [address] [place] [address] Referral ID Status Reason Start Date Expiration Date Visits Requested Visits Authorized [id number] Pending Review Auto-Generat ed Referral 06/27/2023 07/26/2024 1 1 * Outpatient Procedure (Routine) - Authorized Specialty Diagnoses / Procedures Referred By Kelly alberts Referred To Contact [facility] Diagnoses Interstitial pulmonary disease (HCC) Procedures LUNG DIFFUSION CAPACITY (DLCO) DIFFUSING CAPACITY Mike Presley MD [address] [place], [place] [phone] [facility] [address] [place] [address] Referral ID Status Reason Start Date Expiration Date Visits Requested Visits Authorized [id number] Authorized Auto-Generat ed Referral 06/27/2023 07/26/2024 1 1 * MRI/CT (Routine) - Authorized Specialty Diagnoses / Procedures Referred By Contac t Referred To Contact CT IMAGING Diagnoses Interstitial pulmonary disease (HCC) Procedures CT CHEST WO IVCON DIAGNOSTIC COMPUTED TOMOGRAPHY THORAX W/O CNTRST Mike Presley MD [address] [place], [place] [phone] Ct Imaging Referral ID Status Reason Start Date Expiration Date Visits Requested Visits Authorized [id number] Authorized Auto-Generat ed Referral 06/27/2023 07/26/2024 1 1 [facility] for referral (narrative)* Outpatient Procedure (Routine) - Authorized Specialty Diagnoses / Procedures Referred By Contac t Referred To Contact [facility] Diagnoses ILD (interstitial lung disease) (HCC) Procedures SPIROMETRY BASELINE ONLY SPMTRY W/VC EXPIRATORY BERNIE W/WO MXML VOL VNTJ Mike Presley MD [address] [address] [facility] [place] [id number] [place] [address] Referral ID Status Reason Start Date Expiration Date Visits Requested Visits Authorized [id number] Authorized Auto-Generat ed Referral 09/24/2024 1 1 [facility] for visit Narrative* Outpatient Procedure (Routine) - Closed Specialty Diagnoses / Procedures Referred By Contac t Referred To Contact [facility] Diagnoses Rectal bleeding Procedures COLONOSCOPY SCREENING COLONOSCOPY FLX DX W/COLLJ SPEC WHEN PFRMD Ernesto Chacko, BETTY.DIRECTOR AMBULATORY [address] [place] [address] [facility] [place] [address] [place] [address] Referral ID Status Reason Start Date Expiration Date V isits Requested Visits Authorized [id number] Closed Auto-Generate d Referral 08/07/2022 08/07/2023 1 1 [facility] Neurology (Routine) - Pending Review Specialty Diagnoses / Procedures Referred By Contac t Referred To Contact Diagnoses Lumbar radiculopathy Procedures EMG & nerve conduction Edward Barros MD [address] [facility], [address] [place] [address] Phone: tel: fax: Referral ID Status Reason Start Date Expiration Date V isits Requested Visits Authorized [id number] Pending Review 12/10/2024 12/10/2025 1 1 [facility] Work Phone: reason for visit Narrative* Imaging (Routine) - Authorized Specialty Diagnoses / Procedures Referred By Contac t Referred To Contact Radiology Diagnoses Left forearm pain Procedures XR forearm left 2 views Edward Barros MD [address] [facility], [address] [place] [address] Phone: tel: fax: Referral ID Status Reason Start Date Expiration Date Visits Requested Visits Authorized [id number] Authorized Perform Procedure 01/17/2025 01/17/2026 1 1 [facility] Work Phone: Remzyn for visit Narrative* Diagnostic Procedure Only (Routine) - Closed Specialty Diagnoses / Procedures Referred By Contac t Referred To Contact XR IMAGING Diagnoses Pain in right hip Procedures XR PELVIS 1V AP RADIOLOGIC EXAMINATION PELVIS 1/2 [place] [address] [place] [address] Phone: tel: fax: [place] [phone] Referral ID Status Reason Start Date Expiration Date V isits Requested Visits Authorized [id number] Closed Auto-Generate d Referral 02/21/2025 03/23/2026 1 1 [facility] Summary Purpose Family History No Family History Records Found Relationship Condition Age at Onset Recorded Date/T sebastian mother Disorder of thyroid Unknown Dementia Unknown grandparent Disorder of thyroid Unknown father Osteoarthritis Unknown Advance Directives No Advanced Directives Records FoundDocuments on File Type Date Recorded 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 Advance Directive(s) 08/12/2019 10:47 AM Advance Directive(s) 07/28/2019 9:20 AM Documents on File Type Date Recorded 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 Advance Directive(s) 07/28/2019 9:20 AM Documents on File Type Date Recorded 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 Advance Directive(s) 07/28/2019 9:20 AM Advance Directive Response Recorded Date/ Time Advance Directives No August 18, 2018 2:26pm Advance Directive Response Recorded Date/ Time Advance Directives No August 18, 2018 1:26pm Reason for Referral Specialty Diagnoses / Procedures Referred By Kelly alberts Referred To Contact Gastroenterology Diagnoses Rectal bleeding Procedures CONSULT TO GASTROENTEROLOGY OFFICE/OUTPATIENT FOR[facility]LY [facility], [facility] MDM 60-74 MINUTES Ernesto Chacko APRN.DIRECTOR AMBULATORY [address] [id number] Referral ID Status Reason Start Date Expiration Date Visits Requested Visits Authorized [id number] Authorized PCP Requested Referral 08/07/2022 08/07/2023 1 1 Specialty Diagnoses / Procedures Referred By Kelly alberts Referred To Contact [facility] Diagnoses Rectal bleeding Procedures COLONOSCOPY SCREENING COLONOSCOPY FLX DX W/COLLJ SPEC WHEN PFRMD Ernesto Chacko APRN.DIRECTOR AMBULATORY [address] [place] [address] [facility] [place] [address] [place] [address] Referral ID Status Reason Start Date Expiration Date Visits Requested Visits Authorized [id number] Pending Review Auto-Generat ed Referral 08/07/2022 08/07/2023 1 1 Specialty Diagnoses / Procedures Referred By Kelly alberts Referred To Contact CT IMAGING Diagnoses Interstitial pulmonary disease (HCC) Procedures CT CHEST WO IVCON DIAGNOSTIC COMPUTED TOMOGRAPHY THORAX W/O CNTRST Mike Presley MD [address] [place] [phone] [facility] [place] [address] Referral ID Status Reason Start Date Expiration Date V isits Requested Visits Authorized [id number] Closed Auto-Generate d Referral 06/27/2023 07/26/2024 1 1 Reason Iron deficiency anem ia Diagnosis 1 Iron deficiency anem ia due to chronic blood loss (D50.0) Referral Organization [facility] Referring Provider First Name Roland Referring Provider Last Name Maggie Referring Provider Specialty Internal Me dicine Referred Organization [facility] Referred Provider NAJMA BARBOUR Referred Address [address] [place], [place],[address] Referred Provider Specialty Hematology Referral Priority Routine General Notes Mrs. Waddell is being r eferred for symptomatic iron deficiency anemia. 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 She has completed endoscopic treatment for her chronic bleeding and has received 2 units of PRBC while at [facility] for her procedure. I am referring Mrs. Waddell for IV Fe therapy Clinical Notes Include latest CBC, Fe, TIBC, Ferritin, percent iron saturation Specialty Diagnoses / Procedures Referred By Kelly alberts Referred To Contact CT IMAGING Diagnoses Malignant neoplasm of endometrium (HCC) Procedures CT CHEST W IVCON CAT SCAN OF CHEST CONTRAST Ernesto Chacko, PIPELINE INTEGRITY ENGINEER.DIRECTOR AMBULATORY [phone] Imaging [place] [address] Referral ID Status Reason Start Date Expiration Date V isits Requested Visits Authorized [id number] Closed Auto-Generate d Referral 11/28/2021 01/12/2022 1 1 Specialty Diagnoses / Procedures Referred By Kelly alberts Referred To Contact CT IMAGING Diagnoses Malignant neoplasm of endometrium (HCC) Procedures CT ABD/PEL W IVCON CT ABD & PELVIS W/CONTRAST Ernesto Chacko, PIPELINE INTEGRITY ENGINEER.DIRECTOR AMBULATORY [address] [place] [address] Ct Imaging [place] [address] Referral ID Status Reason Start Date Expiration Date V isits Requested Visits Authorized [id number] Closed Auto-Generate d Referral 11/28/2021 01/12/2022 1 [...] Admit Date cough, ear pain, chest congestion 2024 9:10am Chief Complaint Admit Date cough, ear pain, chest congestion r y 2024 9:10am Amb Documentation January 03, 2025 9:33am [facility]: fall/ Check Up January 05, 2025 10:59am Reason for Visit Admit Date Hypertension November 26, 2024 9 :10am Acute bronchitis due to other specified organisms November 26, 2024 9:10am Endometrial cancer January 05, 2025 10:59am SHERIF (generalized anxiety disorder) Febru [place] 2024 10:59am Graves disease January 05, 2025 10:59am Hypertension January 05, 2025 10:59am Screening mammogram for breast cancer Fe [facility] 2024 10:59am Wellness examination January 05, 2025 10:59am Additional Source Comments INFORMATION SOURCE (unrecogn ized section and content) DATE CREATED AUTHOR 11/29/2019 [facility] DATE CREATED AUTHOR AUTHOR'S ORGANIZ ATION 11/23/2021 Nancy blanchard DATE CREATED AUTHOR AUTHOR'S ORGANIZ ATION 03/20/2022 [facility] DATE CREATED AUTHOR AUTHOR'S ORGANIZ ATION 03/28/2023 [facility] DATE CREATED AUTHOR AUTHOR'S ORGANIZ ATION 08/25/2023 [facility] DATE CREATED AUTHOR AUTHOR'S ORGANIZ ATION 12/05/2024 [facility] DATE CREATED AUTHOR AUTHOR'S ORGANIZ ATION 01/17/2025 [facility] DATE CREATED AUTHOR AUTHOR'S ORGANIZ ATION 01/22/2025 [facility] DATE CREATED AUTHOR AUTHOR'S ORGANIZ ATION 02/22/2025 [facility] DATE CREATED AUTHOR AUTHOR'S ORGANIZ ATION 02/28/2025 Pearl Felib[facility] Reason for Visit (unrecogniz ed section and [...] NEW HIGH MDM 60-74 MINUTES Ernesto Chacko APRN.DIRECTOR AMBULATORY [address] [place] [address] Referral ID Status Reason Start Date Expiration Date V isits Requested Visits Authorized [id number] Closed PCP Requested Referral 08/07/2022 08/07/2023 1 1 Reason Comments Spirometry Specialty Diagnoses / Procedures Referred By Contac t Referred To Contact [facility] Diagnoses Dyspnea, unspecified type Procedures SPIROMETRY WITH DILATOR IF OBSTRUCTED BRNCDILAT RSPSE SPMTRY PRE&POST-BRNCDILAT ADMN Davis Page MD [address] [place] [address] [facility] [place] [address] [place] [address] Referral ID Status Reason Start Date Expiration Date V isits Requested Visits Authorized [id number] Closed Auto-Generate d Referral 05/23/2023 06/21/2024 1 1 Reason Comments New Reason Comments New Radiation proctitis Specialty Diagnoses / Procedures Referred By Contac t Referred To Contact Colon and Rectal Surgery Diagnoses Radiation proctitis Procedures CONSULT TO COLO-RECTAL SURGERY OFFICE/OUTPATIENT NEW HIGH MDM 60-74 MINUTES Shelli Villarreal APRN.DIRECTOR AMBULATORY [address] [place] [address] [place] DO [address] [place] [address] Referral ID Status Reason Start Date Expiration Date V isits Requested Visits Authorized [id number] Closed PCP Requested Referral 05/16/2023 05/15/2024 1 1 Reason Comments Patient Update Specialty Diagnoses / Procedures Referred By Contac t Referred To Contact [facility] Diagnoses ILD (interstitial lung disease) (HCC) Procedures SPIROMETRY BASELINE ONLY SPMTRY W/VC EXPIRATORY BERNIE W/WO MXML VOL VNTJ Mike Presley MD [address] [place] [address] [facility] [place] [address] [place] [address] Referral ID Status Reason Start Date Expiration Date V isits Requested Visits Authorized [id number] Closed Auto-Generate d Referral 08/26/2023 09/24/2024 1 1 Specialty Diagnoses / Procedures Referred By Contac t Referred To Contact [facility] Diagnoses Interstitial pulmonary disease (HCC) Procedures LUNG DIFFUSION CAPACITY (DLCO) DIFFUSING CAPACITY Mike Presley MD [address] [place] [address] [facility] [place] [address] [place] [address] Referral ID Status Reason Start Date Expiration Date V isits Requested Visits Authorized [id number] Closed Auto-Generate d Referral 06/27/2023 07/26/2024 1 1 Reason Comments Radio Gen A21 Reason Comments Pre-Op Exam Specialty Diagnoses / Procedures Referred By Contac t Referred To Contact CT IMAGING Diagnoses Interstitial pulmonary disease (HCC) Procedures CT CHEST WO IVCON DIAGNOSTIC COMPUTED TOMOGRAPHY THORAX W/O CNTRST Mike Presley MD [address] [place] [address] [address] [address] [facility] Referral ID Status Reason Start Date Expiration Date V isits Requested Visits Authorized [id number] Closed Auto-Generate d Referral 06/27/2023 07/26/2024 1 1 Reason Comments Radiology [place] Specialty Diagnoses / Procedures Referred By Kelly t Referred To Contact CT IMAGING Diagnoses Malignant neoplasm of endometrium (HCC) Procedures CT CHEST W IVCON CAT SCAN OF CHEST CONTRAST Ernesto Chacko APRN.DIRECTOR AMBULATORY [address] [place] [phone] Imaging [place] [address] Referral ID Status Reason Start Date Expiration Date V isits Requested Visits Authorized [id number] Closed Auto-Generate d Referral 11/28/2021 01/12/2022 1 1 Reason Comments Skin Check Reason Comments Post-op Reason Comments Post-op Reason Comments New Patient Visit RIGHT HIPX-RAYS TODA Y Pain RIGHT HIPX-RAYS TODA Y Reason Comments Pain RIGHT HIP New Patient Visit RIGHT HIP Results EMG results, saw RB 01/13/2025 Reason Comments New Scheduled Active and Recently Administ ered Medications [...] or prosecute any alcohol or drug abuse patient.[facility] the event this information is protected by the Federal Confidentiality of Alcohol and Drug Abuse Patient Records regulations: The Federal rules restrict any use of the information to criminally investigate or prosecute any alcohol or drug abuse patient.[facility] Hospital[facility] the event this information is protected by the Federal Confidentiality of Alcohol and Drug Abuse Patient Records regulations: The Federal rules restrict any use of the information to criminally investigate or prosecute any alcohol or drug abuse patient.[facility] Hospital[facility] the event this information is protected by the Federal Confidentiality of Alcohol and Drug Abuse Patient Records regulations: The Federal rules restrict any use of the information to criminally investigate or prosecute any alcohol or drug abuse patient.[facility] the event this information is protected by the Federal Confidentiality of Alcohol and Drug Abuse Patient Records regulations: The Federal rules restrict any use of the information to criminally investigate or prosecute any alcohol or drug abuse patient.[facility] Hospital[facility] the event this information is protected by the Federal Confidentiality of Alcohol and Drug Abuse Patient Records regulations: The Federal rules restrict any use of the information to criminally investigate or prosecute any alcohol or drug abuse patient.[facility] Hospital[facility] the event this information is protected by the Federal Confidentiality of Alcohol and Drug Abuse Patient Records regulations: The Federal rules restrict any use of the information to criminally investigate or prosecute any alcohol or drug abuse patient.[facility] HospitalIn the event this information is protected by the Federal Confidentiality of Alcohol and Drug Abuse Patient Records regulations: The Federal rules restrict any use of the information to criminally investigate or prosecute any alcohol or drug abuse patient.[facility] HospitalIn the event this information is protected by the Federal Confidentiality of Alcohol and Drug Abuse Patient Records regulations: The Federal rules restrict any use of the information to criminally investigate or prosecute any alcohol or drug abuse patient.[facility] the event this information is protected by the Federal Confidentiality of Alcohol and Drug Abuse Patient Records regulations: The Federal rules restrict any use of the information to criminally investigate or prosecute any alcohol or drug abuse patient.[facility] Hospital[facility] the event this information is protected by the Federal Confidentiality of Alcohol and Drug Abuse Patient Records regulations: The Federal rules restrict any use of the information to criminally investigate or prosecute any alcohol or drug abuse patient.[facility] HospitalIn the event this information is protected by the Federal Confidentiality of Alcohol and Drug Abuse Patient Records regulations: The Federal rules restrict any use of the information to criminally investigate or prosecute any alcohol or drug abuse patient.[facility] HospitalIn the event this information is protected by the Federal Confidentiality of Alcohol and Drug Abuse Patient Records regulations: The Federal rules restrict any use of the information to criminally investigate or prosecute any alcohol or drug abuse patient.[facility] HospitalIn the event this information is protected by the Federal Confidentiality of Alcohol and Drug Abuse Patient Records regulations: The Federal rules restrict any use of the information to criminally investigate or prosecute any alcohol or drug abuse patient.[facility] HospitalIn the event this information is protected by the Federal Confidentiality of Alcohol and Drug Abuse Patient Records regulations: The Federal rules restrict any use of the information to criminally investigate or prosecute any alcohol or drug abuse patient.[facility] HospitalIn the event this information is protected by the Federal Confidentiality of Alcohol and Drug Abuse Patient Records regulations: The Federal rules restrict any use of the information to criminally investigate or prosecute any alcohol or drug abuse patient.[facility] HospitalIn the event this information is protected by the Federal Confidentiality of Alcohol and Drug Abuse Patient Records regulations: The Federal rules restrict any use of the information to criminally investigate or prosecute any alcohol or drug abuse patient.[facility] HospitalIn the event this information is protected by the Federal Confidentiality of Alcohol and Drug Abuse Patient Records regulations: The Federal rules restrict any use of the information to criminally investigate or prosecute any alcohol or drug abuse patient.[facility] HospitalIn the event this information is protected by the Federal Confidentiality of Alcohol and Drug Abuse Patient Records regulations: The Federal rules restrict any use of the information to criminally investigate or prosecute any alcohol or drug abuse patient.[facility] HospitalIn the event this information is protected by the Federal Confidentiality of Alcohol and Drug Abuse Patient Records regulations: The Federal rules restrict any use of the information to criminally investigate or prosecute any alcohol or drug abuse patient.[facility] HospitalIn the event this information is protected by the Federal Confidentiality of Alcohol and Drug Abuse Patient Records regulations: The Federal rules restrict any use of the information to criminally investigate or prosecute any alcohol or drug abuse patient.[facility] HospitalIn the event this information is protected by the Federal Confidentiality of Alcohol and Drug Abuse Patient Records regulations: The Federal rules restrict any use of the information to criminally investigate or prosecute any alcohol or drug abuse patient.[facility] HospitalIn the event this information is protected by the Federal Confidentiality of Alcohol and Drug Abuse Patient Records regulations: The Federal rules restrict any use of the information to criminally investigate or prosecute any alcohol or drug abuse patient.[facility] HospitalIn the event this information is protected by the Federal Confidentiality of Alcohol and Drug Abuse Patient Records regulations: The Federal rules restrict any use of the information to criminally investigate or prosecute any alcohol or drug abuse patient.[facility] HospitalIn the event this information is protected by the Federal Confidentiality of Alcohol and Drug Abuse Patient Records regulations: The Federal rules restrict any use of the information to criminally investigate or prosecute any alcohol or drug abuse patient.[facility] HospitalIn the event this information is protected by the Federal Confidentiality of Alcohol and Drug Abuse Patient Records regulations: The Federal rules restrict any use of the information to criminally investigate or prosecute any alcohol or drug abuse patient.[facility] HospitalIn the event this information is protected by the Federal Confidentiality of Alcohol and Drug Abuse Patient Records regulations: The Federal rules restrict any use of the information to criminally investigate or prosecute any alcohol or drug abuse patient.[facility] HospitalIn the event this information is protected by the Federal Confidentiality of Alcohol and Drug Abuse Patient Records regulations: The Federal rules restrict any use of the information to criminally investigate or prosecute any alcohol or drug abuse patient.[facility] HospitalIn the event this information is protected by the Federal Confidentiality of Alcohol and Drug Abuse Patient Records regulations: The Federal rules restrict any use of the information to criminally investigate or prosecute any alcohol or drug abuse patient.[facility] HospitalIn the event this information is protected by the Federal Confidentiality of Alcohol and Drug Abuse Patient Records regulations: The Federal rules restrict any use of the information to criminally investigate or prosecute any alcohol or drug abuse patient.[facility] HospitalIn the event this information is protected by the Federal Confidentiality of Alcohol and Drug Abuse Patient Records regulations: The Federal rules restrict any use of the information to criminally investigate or prosecute any alcohol or drug abuse patient.[facility] Care Teams (unrecognized sec tion and content) Production Crew Supervisor Relationship Specialty Start Date End Date Roland Serrano DO PCP - General 09/21/07 Kizzy Galloway RN Specialty Medical Massage Therapist Radiation Oncology 06/12/21 Production Crew Supervisor Relationship Specialty Start Date End Date Roland Serrano, DO PCP - General 09/21/07 [place] [address] [place] [address] Specialty Medical Massage Therapist Radiation Oncology 06/12/21 Production Crew Supervisor Relationship Specialty Start Date End Date Roland Serrano, DO PCP - General 09/21/07 Kizzy Galloway [place] [id number] [place] [address] Specialty Medical Massage Therapist Radiation Oncology 06/12/21 Production Crew Supervisor Relationship Specialty Start Date End Date Roland Serrano, DO PCP - General 09/21/07 Kizzy Galloway RN [address] [place] [address] Specialty Medical Massage Therapist Radiation Oncology 06/12/21 Production Crew Supervisor Relationship Specialty Start Date End Date Roland Serrano, DO PCP - General 09/21/07 [place] [address] [place] [address] Specialty Medical Massage Therapist Radiation Oncology 06/12/21 Production Crew Supervisor Relationship Specialty Start Date End Date Roland Serrano, DO PCP - General 09/21/07 [place] [address] [place] [address] Specialty Medical Massage Therapist Radiation Oncology 06/12/21 Production Crew Supervisor Relationship Specialty Start Date End Date Roland Serrano, DO PCP - General 09/21/07 [place] [address] [place] [address] Specialty Medical Massage Therapist Radiation Oncology 06/12/21 Production Crew Supervisor Relationship Specialty Start Date End Date Roland Serrano DO PCP - General 09/21/07 [place] [address] [place] [address] Specialty Medical Massage Therapist Radiation Oncology 06/12/21 Production Crew Supervisor Relationship Specialty Start Date End Date Roland Serrano DO PCP - General 09/21/07 Kizzy Galloway RN [address] [place] [address] Specialty Medical Massage Therapist Radiation Oncology 06/12/21 Production Crew Supervisor Relationship Specialty Start Date End Date Roland Serrano DO PCP - General 09/21/07 Kizzy Galloway RN [address] [place] [address] Specialty Medical Massage Therapist Radiation Oncology 06/12/21 Production Crew Supervisor Relationship Specialty Start Date End Date Roland Serrano DO PCP - General 09/21/07 Kizzy Galloway RN [address] [place] [address] Specialty Medical Massage Therapist Radiation Oncology 06/12/21 Production Crew Supervisor Relationship Specialty Start Date End Date Roland Serrano DO PCP - General 09/21/07 Kizzy Galloway RN [address] [place] [address] Specialty Medical Massage Therapist Radiation Oncology 06/12/21 Production Crew Supervisor Relationship Specialty Start Date End Date Roland Serrano DO PCP - General 09/21/07 [place] [address] [place] [address] Specialty Medical Massage Therapist Radiation Oncology 06/12/21 Production Crew Supervisor Relationship Specialty Start Date End Date Roland Serrano DO PCP - General 09/21/07 Kizzy Galloway RN [id number] [place] [address] Specialty Medical Massage Therapist Radiation Oncology 06/12/21 Production Crew Supervisor Relationship Specialty Start Date End Date Roland Serrano DO PCP - General 09/21/07 Kizzy Galloway RN [id number] [place] [address] Specialty Medical Massage Therapist Radiation Oncology 06/12/21 Production Crew Supervisor Relationship Specialty Start Date End Date Roland Serrano DO PCP - General 09/21/07 Kizzy Galloway RN [address] [place] [address] Specialty Medical Massage Therapist Radiation Oncology 06/12/21 Production Crew Supervisor Relationship Specialty Start Date End Date Roland Serrano DO PCP - General 09/21/07 [place] [address] [place] [address] Specialty Medical Massage Therapist Radiation Oncology 06/12/21 Production Crew Supervisor Relationship Specialty Start Date End Date Roland Serrano DO PCP - General 09/21/07 [place] [address] [place] [address] Specialty Medical Massage Therapist Radiation Oncology 06/12/21 Production Crew Supervisor Relationship Specialty Start Date End Date Roland Serrano DO PCP - General 09/21/07 [place] [address] [place] [phone] Specialty Medical Massage Therapist Radiation Oncology 06/12/21 Team Status: Active Member [...] May 04, 2024 Dee Dee Espana APRN RETURNING OFFICER-C Attending Provider Act luca Start: May 04, [...] June 29, 2024 End: June 29, 2024 Production Crew Supervisor Relationship Specialty Start Date End Date Roland Serrano DO PCP - General 09/21/07 [place] [address] [place] [phone] Specialty Medical Massage Therapist Radiation Oncology 06/12/21 Production Crew Supervisor Relationship Specialty Start Date End Date Roland Serrano DO PCP - General 09/21/07 [place] [address] [place] [address] Specialty Medical Massage Therapist Radiation Oncology 06/12/21 Production Crew Supervisor Relationship Specialty Start Date End Date Roland Serrano DO PCP - General 09/21/07 [place] [address] [place] [address] Specialty Medical Massage Therapist Radiation Oncology 06/12/21 Kathryn Painter RN Specialty Medical Massage Therapist Travel Money Advisor Oncology 08/11/24 Production Crew Supervisor Relationship Specialty Start Date End Date Roland Serrano DO PCP - General 09/21/07 [place] [address] [place] [address] Specialty Medical Massage Therapist Radiation Oncology 06/12/21 Kathryn Painter, RN Specialty Medical Massage Therapist Travel Money Advisor Oncology 08/11/24 Production Crew Supervisor Relationship Specialty Start Date End Date Roland Serrano MD [address] [place] [address] PCP - General Internal Medicine 02/13/24 Production Crew Supervisor Relationship Specialty Start Date End Date Roland Serrano MD [address] [place] [address] PCP - General Internal Medicine 02/13/24 Production Crew Supervisor Relationship Specialty Start Date End Date Roland Serrano MD [address] [place] [address] PCP - General Internal Medicine 02/13/24 Production Crew Supervisor Relationship Specialty Start Date End Date Roland Serrano MD [address] [place] [address] PCP - General Internal Medicine [...] November 26, 2024 End: November 26, 2024 Production Crew Supervisor Relationship Specialty Start Date End Date Roland Serrano MD [address] [place] [address] PCP - General Internal Medicine 02/13/24 Production Crew Supervisor Relationship Specialty Start Date End Date Roland Serrano MD [address] [place] [address] PCP - General Internal Medicine 02/13/24 Production Crew Supervisor Relationship Specialty Start Date End Date Roland Serrano DO [address] [place] [address] PCP - General Internal Medicine 12/10/24 Team Status: Active Member Role Status Dates Roland Serrano DO Primary Care Provider Active Start: January 03, 2025 Emelia Constantino CMA Attending Provider Active Start: January 03, 2025 Team Status: Active Member Role Status Dates Roland Serrano DO Primary Care Provide r, Attending Provider Active Start: January 04, 2025 Team Status: Inactive Member Role Status Dates Roland Serrano DO Primary Care Provide r, Attending Provider Active Start: January 05, 2025 End: January 05, 2025 Production Crew Supervisor Relationship Specialty Start Date End Date Roland Serrano DO [address] [place] [address] PCP - General Internal Medicine 12/10/24 Production Crew Supervisor Relationship Specialty Start Date End Date Roland Serrano DO [address] [place] [address] PCP - General Internal Medicine 12/10/24 Production Crew Supervisor Relationship Specialty Start Date End Date Roland Serrano, DO [address] [place] [address] PCP - General Internal Medicine 12/10/24 Production Crew Supervisor Relationship Specialty Start Date End Date Roland Serrano DO [address] [place] [address] PCP - General Internal Medicine 12/10/24 Production Crew Supervisor Relationship Specialty Start Date End Date Roland Serrano DO [facility] 09/21/07 [place] [address] [place] [address] Specialty Medical Massage Therapist Radiation Oncology 06/12/21 Kathryn Painter RN Specialty Medical Massage Therapist Travel Money Advisor Oncology 08/11/24 Production Crew Supervisor Relationship Specialty Start Date End Date Roland Serrano DO PCP - [facility] 09/21/07 [place] [address] [place] [address] Specialty Medical Massage Therapist Radiation Oncology 06/12/21 Kathryn Painter RN Specialty Medical Massage Therapist Travel Money Advisor Oncology 08/11/24 Goals (unrecognized section and content) Goals may [...] ON THE PRIMARY CLINICAL RECORDS. [facility]. provides no warranty or guarantee of the accuracy or completeness of information in this document.
[2025-02-28 12:10] LABS: Free T4 0.69 ng/dL (0.76-1.46)
[2025-02-28 12:11] LABS: Alanine Aminotransferase 39 U/L (14-59); Albumin Globulin Ratio 1.1; Albumin Level 3.6 g/dL (3.4-5.0); Alkaline Phosphatase 104 U/L (46-116); Anion Gap 10.8; Aspartate Amino Transferase 28 U/L (15-37); BUN Creatinine Ratio 16.7; Bilirubin Total 0.5 mg/dL (0.2-1.0); Calcium 9.1 mg/dL (8.5-10.1); Carbon Dioxide 30.7 mmol/L (21.0-32.0); Chloride 105 mmol/L (98-107); Chol HDL Ratio 2.9; Cholesterol 252 mg/dL (<=200); Estimated GFR (African America >60 (>=60 mL/min/1.73m^2); Estimated GFR (Non-African Ame >60 (>=60 mL/min/1.73m^2); Globulin 3.3 g/dL; Glucose 107 mg/dL (74-106); HDL Cholesterol 86 mg/dL (40-60); Potassium 4.5 mmol/L (3.5-5.1); Sodium 142 mmol/L (136-145); Thyroid Stimulating Hormone 0.861 uIU/mL (0.358-3.740); Total Protein 6.9 g/dL (6.4-8.2); Triglycerides 69 mg/dL (<=150); VLDL CHOLESTEROL 13.8 mg/dL
[2025-03-01 12:08] LABS: Triiodothyronine (T3) 88 ng/dL (71-180)
== END 2025-02-28 11:03 | disposition home or self-care (01) ==
PROVIDERS: PCP Internal Medicine; Visit Provider Internal Medicine
DX: Z00.00 Encounter for general adult medical examination without abnormal findings (principal); D50.0 Iron deficiency anemia secondary to blood loss (chronic); E05.20 Thyrotoxicosis with toxic multinodular goiter without thyrotoxic crisis or storm
CPT/HCPCS: 36415; 80053; 80061; 82728; 84439; 84443; 84480; 85025

== ENCOUNTER 2025-03-16 09:21 | Day surgery (SDC) | payer BC, SELFPAY ==
--- NOTE | 2025-03-16 | OP_ITS ---
OPERATION DATE: 03/16/2025 PREOPERATIVE DIAGNOSIS: Enlarging lipoma to the left arm. POSTOPERATIVE DIAGNOSIS: Enlarging lipoma to the left arm. PROCEDURE: Excisional biopsy lipomas left arm x3. SURGEON: Clem Flannery M.D. ANESTHESIA: Local with 0.25% Marcaine plain. ESTIMATED BLOOD LOSS: Less than 3 mL. 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 Indications, risks, benefits, alternatives of proceeding with excisional biopsy under local anesthesia were explained extensively to the patient, including the risks of bleeding, infection, scarring, pain, recurrence and need for further. All of her questions were answered. Informed consent was obtained. PROCEDURE: Patient brought to the operating room, placed in the supine position. The areas were prepped and draped in the usual sterile fashion. They were anesthetized with 0.25% Marcaine. Incision was made in the area of the skin crease overlying the lipomas, carried down through subcutaneous tissue using sharp dissection. The largest was in the left upper forearm, which was approximately 3 cm in longest diameter. This was freed up and sent off to Pathology. The subcutaneous tissue was re-approximated with interrupted 4-0 Monocryl suture. Skin was then closed with a running 4-0 subcuticular Monocryl suture. The next one in the forearm was approximately 1.5 cm in diameter. This was removed in identical fashion and closed. These incisions were then covered with Dermabond glue and Band-Aids. The patient?s arm was then turned over to the dorsal side, where a 1 cm lipoma was then prepped and draped and anesthetized and excised in identical fashion. These were all sent off to Pathology. This was then covered with skin glue and a Band-Aid. Patient tolerated procedure well. Estimated blood loss less than 3 mL. Patient was sent to recovery area and discharged to home in good condition. CC: Dr. Benson MCDUFFIE
[2025-03-16 09:38] VITALS: BP 171/101; PULSE 88; TEMP 36.4; O2SAT 97
[2025-03-16 10:55] VITALS: BP 181/106; PULSE 78; O2SAT 97
[2025-03-16] MEDS: BUPIVACAINE HCL 0.25% PF 25 MG/10 ML VIAL 7 ML INJ (11:19)
[2025-03-16 11:24] VITALS: BP 171/91; PULSE 69; O2SAT 99
== END 2025-03-16 12:00 | disposition home or self-care (01) ==
PROVIDERS: PCP Internal Medicine; Visit Provider Surgery
PROC: (CPT 24071; principal; 2025-03-16 10:00)
DX: D17.22 Benign lipomatous neoplasm of skin and subcutaneous tissue of left arm (principal); J45.909 Unspecified asthma, uncomplicated; E05.00 Thyrotoxicosis with diffuse goiter without thyrotoxic crisis or storm; I11.9 Hypertensive heart disease without heart failure; I43 Cardiomyopathy in diseases classified elsewhere; Z85.89 Personal history of malignant neoplasm of other organs and systems; M79.602 Pain in left arm
CPT/HCPCS: 24071; 25075 ×2; 88304; J0665

== ENCOUNTER 2025-04-28 14:27 | Outpatient (OUT) | payer BC, SELFPAY ==
--- OUTSIDE RECORDS SUMMARY | 2024-01-20 06:30 | XMS_ITS ---
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 Name Role Phone EdinKobe claire [phone] REASON FOR VISIT left ankle injury Encounters Encounter Location Date Provider Diagnosis [facility] (POD[facility]) [address] [place] [address] [place] [address] 01/20/2024 Kobe Calvin Plan Of Treatment No Information Progress Notes * Enrique STOVEROB:1960 ([age] yo F)Acc No.[id number]:01/20/2024 UNLOCKED PROGRESS NOTE New Patient Patient: Lj MOSES Provider: Grace Calvin DPM, MS :1960 A ge:63 Y S ex:Female Date:01/20/2024 Address:[address] [place], [place] [id number] Subjective: * Chief Complaints: * 1 . Left ankle injury. * Medical History: Objective: * Vitals: Assessment: Plan: * Treatment: * * Electronic signature of Jareth Calvin DPM on 04/28/2025 at 02:32 PM EDT Sign off status: Pending Visit Status: C ANC (Cancelled) * Provider: Grace Calvin DPM, MS Date: 0 01/20/2024 Generated for Jaime guardado/Keron/Birditting on: 0 04/28/2025 02:32 PM EDT
--- OUTSIDE RECORDS SUMMARY | 2024-02-11 10:00 | XMS_ITS ---
Author Organization [facility] in [place] Address [address] [place] [address] Care Team Providers Care Room Service Bellhop Name Role Phone Roland Brown DO Primary Care Provider Kobe Cruz [phone] Allergies No Known Allergies REASON FOR VISIT 3 week f/u Medications Medication SIG (Take, Route, Fr equency, Duration) Notes Start Date End Date Status Effexor 01/20/2024 Active Meloxicam 15 MG 1 tablet Orally Once a day for 30 days 01/20/2024 Active Social History Tobacco Use: Social History Observation Description Date Details (start date - stop date) Never Smoker NA - NA Tobacco Use/Smoking Question Answer Notes Patient is a nonsmoker Vital Signs Temperature 98 degrees Fahrenheit 02/11/2024 Heart Rate 81 /min 02/11/2024 Respiratory Rate 16 /min 02/11/2024 Height 66 in 02/11/2024 Weight 148 lbs 02/11/2024 BMI 23.89 kg/m2 02/11/2024 Encounters Encounter Location Date Provider Diagnosis [facility] (PODIATRY) [address] [place] [address] [place] [address] 02/11/2024 Kobe Calvin Sprain of other ligament of left ankle, initial encounter S93.492A Assessments Encounter Date Diagnosis (ICD Code) Assessment Notes Treatment Notes Treatment Clinical Notes Section Notes 02/11/2024 Sprain of other ligament of left ankle, initial encounter (ICD-10 - S93.492A) patient follows up for left lateral ankle sprain. She is significantly better and is transitioned out of the cam boot and is using the ASO ankle brace. I did provide prescription for physical therapy which included modalities and pool therapy. She is concerned about swelling and recommended compression stockings. She also relates to varicose veins and I recommended that she consider referral to the vein center and Dr. Escobedo which she will consider. If she needs referral she will call. She'll follow up in six weeks or as needed. Plan Of Treatment Treatment Notes Assessment Notes Sprain of other ligament of left ankle, initial encounter patient follows up for left lateral ankle sprain. She is significantly better and is transitioned out of the cam boot and is using the ASO ankle brace. I did provide prescription for physical therapy which included modalities and pool therapy. She is concerned about swelling and recommended compression stockings. She also relates to varicose veins and I recommended that she consider referral to the vein center and Dr. Escobedo which she will consider. If she needs referral she will call. She'll follow up in six weeks or as needed. Progress Notes * David STOVERiDOB:1960 (63 yo F)Acc No.[id number]:02/11/2024 Follow Up Patient: Isabel Zhang Provider: Grace Calvin DPM MS :1960 A ge:63 Y S ex:Female Date:02/11/2024 [facility] Pcp:Roland Brown, DO Check In:02:05 PM ESTCheck O ut:02:27 PM EST Subjective: * Chief Complaints: * 3 week f/u * HPI: G eneral: s/p left ankle sprain DOI 01/18/24. Started with Cam boot, then transitioned to ASO brace. Developed some swelling last week Fri, ., Friday . On Friday it went away. Rates pain lateral left ankle 01/24. Has been taking meloxicam and states it is helping. * ROS: G eneral/Constitutional: Chills d enies. F ever d enies. W eight gain?denies. W eight loss d enies. S kin: Skin Ulcers d enies. S kin lesion(s) d enies. ? C ardiovascular: Difficulty breathing on exertion d enies. L eg cramps?denies. E jose alfredo d enies. C hest pain d enies. R espiratory: Difficulty breathing d enies. D yspnea d enies.?Cough d enies. G astrointestinal: Diarrhea d enies. N ausea d enies. V omiting?denies. M usculoskeletal: Bone/Joint Symptoms d enies. C donna Pain d enies.?Leg cramps d enies. N eurologic: Numbness d enies. T ingling d enies . G ait abnormality d enies. ? H ematology: Anemia D enies. E asy bruising d enies. ? A ll Other Systems: Review of Systems (ROS) S ee HPI for details,All others negative except those mentioned in HPI. * Active Problem List ?Problem List has not been verified* Medical History: * Surgical History: k nee surgery x3 both shoulders wrist hip replacement * Hospitalization/Major Diagno stic Procedure: D enies Past Hospitalization * Family History: N o Family History documented.. * Social History: T obacco Use: T obacco Use/Smoking P atient is a n onsmoker * Medications: T akingEffexor Meloxicam 15 MG Tablet 1 tablet Orally Once a dayMedication List reviewed and reconciled with the patientTaking Effexor Taking Meloxicam 15 MG Tablet 1 tablet Orally Once a dayMedication List reviewed and reconciled with the patient * Allergies: N .K.D.A.no[Allergies Verified] Objective: * Vitals: W t:148 lbs, Ht: 66 in, Temp:98 F, HR:81 /min, RR:16 /min, BMI:23.89 Index, Pain scale:3 1-10, Ht-cm: 167.64 cm, Wt-k.13 kg. * Examination: P odiatry Examination: SKIN: s kin intact, n o sign of infection. MUSCULOSKELETAL: N o pain to palpation,however there is mild pain when everting against resistance over the peroneal tendons near the fibular groove. Anterior drawer reveals a somewhat lax ankle but is similar to the contralateral ankle and is not painful.? NEUROLOGICAL: l ight touch sensation intact, n egative tinel's sign. VASCULAR: P edal pulses palpable, C apillary refill is brisk to toe, D igital hair intact. Assessment: * Assessment: 1. S prain of other ligament of left ankle, initial encounter - S93.492A (Primary) Plan: * Treatment: * Procedure Codes: * * Sign off status: Completed Visit Status: C HK (Check Out) true * Provider: Grace Calvin DPM, MS Date: 0 02/11/2024 Generated for Jaime guardado/Keron/Pelon on: 0 04/28/2025 02:31 PM EDT History and Physical Notes * HPI (History of Present Illness) Category Sub-Category Detail Notes Category Not es General s/p left ankle sprain DOI 01/18/24. Started with Cam boot, then transitioned to ASO brace. Developed some swelling last week Fri, ., Friday . On Friday it went away. Rates pain lateral left ankle 01/24. Has been taking meloxicam and states it is helping Examination Category Sub-Category Detail Notes Category Not es Podiatry Examination SKIN: skin intact, no sign of infection MUSCULOSKELETAL: No pain to palpation ,however there is mild pain when everting against resistance over the peroneal tendons near the fibular groove. Anterior drawer reveals a somewhat lax ankle but is similar to the contralateral ankle and is not painful NEUROLOGICAL: light touch sensatio n intact, negative tinel's sign VASCULAR: Pedal pulses palpabl e, Capillary refill is brisk to toe, Digital hair intact
--- OUTSIDE RECORDS SUMMARY | 2024-02-11 10:00 | XMS_ITS ---
Author Organization [facility] in [place] Address [address] [place] [address] Care Team Providers Care Earth Moving Machine Operator Name Role Phone EdinKobe claire [phone] REASON FOR VISIT 3 week f/u Encounters Encounter Location Date Provider Diagnosis [facility] (PODIATRY) [address] [place] [address] [place] [address] 02/11/2024 Kobe Calvin Plan Of Treatment No Information Progress Notes * Enrique STOVEROB:1960 ([age] yo F)Acc No.[id number]:02/11/2024 UNLOCKED PROGRESS NOTE Follow Up Patient: Lj MOSES Provider: Grace Calvin DPM, MS :1960 A ge:63 Y S ex:Female Date:02/11/2024 Address:[address] [place], [place] [id number] Subjective: * Chief Complaints: * 1 . 3 week f/u. * Medical History: Objective: * Vitals: Assessment: Plan: * Treatment: * * Electronic signature of Jareth Calvin DPM on 04/28/2025 at 02:32 PM EDT Sign off status: Pending Visit Status: C ANC (Cancelled) * Provider: Grace Calvin DPM, MS Date: 0 02/11/2024 Generated for Jaime guardado/Keron/Birditting on: 0 04/28/2025 02:32 PM EDT
--- OUTSIDE RECORDS SUMMARY | 2024-05-04 04:30 | XMS_ITS ---
Author Organization [facility] [place] Address [address] [place] [address] Care Team Providers Care Rolling Machine Tender Name Role Phone Roland Brown DO Primary Care Provider Najma Billings [phone] REASON FOR VISIT MD Encounters Encounter Location Date Provider Diagnosis [facility] On[facility] [address] [place] [phone] 05/04/2024 Najma Barbour Plan Of Treatment No Information Progress Notes * David STOVERiDOB:1960 (64 yo F)Acc No.[id number]:05/04/2024 UNLOCKED PROGRESS NOTE Progress Notes Patient: Isabel MOSES Provider: Denae Barbour M.D. :1960 A ge:63 Y S ex:Female Date:05/04/2024 Address:[address] [facility] Pcp:Roland Brown DO Subjective: * Chief Complaints: * 1 . MD. * Medical History: Objective: * Vitals: Assessment: Plan: * Treatment: * * Electronic signature of Dale Barbour MD, [id number] on 04/28/2025 at 02:31 PM EDT Sign off status: Pending Visit Status: F AILEDMSG (Voice) * Provider: Denae Barbour M.D. Date: 05/04/2024 Generated for Printi ng/Fahectorg/eTransmitting on: 0 04/28/2025 02:31 PM EDT
--- OUTSIDE RECORDS SUMMARY | 2024-10-19 05:00 | XMS_ITS ---
Author Organization [facility] in [place] Address [address] [place] [address] Care Team Providers Care Ear Pull Machine Operator Name Role Phone Roland Brown DO Primary Care Provider Najma Billings [phone] REASON FOR VISIT MD Encounters Encounter Location Date Provider Diagnosis [facility] Oncology [address] [place] [phone] 10/19/2024 Najma Barbour Plan Of Treatment No Information Progress Notes * David STOVERiDOB:1960 (64 yo F)Acc No.[id number]:10/19/2024 UNLOCKED PROGRESS NOTE Progress Notes Patient: Isabel MOSES Provider: Denae Barbour M.D. :1960 A ge:64 Y S ex:Female Date:10/19/2024 Address:[address] [facility] Pcp:Roland Brown DO Subjective: * Chief Complaints: * 1 . MD. * Medical History: Objective: * Vitals: Assessment: Plan: * Treatment: * * Electronic signature of Dale Barbour MD, [id number] on 04/28/2025 at 02:32 PM EDT Sign off status: Pending Visit Status: C ANC (Cancelled) * Provider: Denae Barbour M.D. Date: 1 12/20/2023 Generated for Printi debby/Keron/eTransmitting on: 0 04/28/2025 02:32 PM EDT
--- OUTSIDE RECORDS SUMMARY | 2025-04-28 14:31 | XMS_ITS | Encounter Summary ---
Author Organization [facility] Address [address] [place] [address] Care Team Providers Care Visual Merchandising Specialist Name Role Phone Roland Brown DO Primary Care Provider [phone] Kizzy Galloway RN Unavailable Kathryn Painter RN Unavailable Unavaila ble Source Comments In the event this information is protected by the Federal Confidentiality of Alcohol and Drug AbusePatient Records regulations: The Federal rules restrict any use of the information to criminally investigate or prosecute any alcohol or drug abuse patient.[facility] Encounter Details Date Type Department Care Team (Late st Contact Info) Description 09/07/2023 Patient Msg Molecular Imaging [address] [id number] Provider, [facility] Appointment Cancellation Request Social History Tobacco Use Types Packs/Day Years Used Date Smoking Tobacco: Never Smokeless Tobacco: Never Alcohol Use Standard Drinks/Week Comments Yes 0 (1 standard drink = 0.6 oz pur e alcohol) 3 drinks per month PHQ-2 Answer Date Recorded PHQ-2 score 0 09/20/2021 Area Deprivation Index Answer Date John rded National Score (1-100), lower number is lower ri sk 79 06/27/2023 State Score (1-10), lower number is lower risk 7 06/27/2023 Data from: https://www.neighborhoodatlas.[facility]/. Last address used for calculation [address] 06/27/2023 Comments No Sex and Gender Information Value Date Recorded Sex Assigned at Not on file Legal Sex Female 9:11 AM EST Gender Identity Not on file Sexual Orientation Not on file documented as of this encounter Functional Status * Are you deaf or do you have serious difficulty hearing? Answer Date of Assessment Author No 08/13/2019 3:43 PM EDT Kevin Paredes RN * Are you blind or do you have serious difficulty seeing, even when wearing glasses? Answer Date of Assessment Author No 08/13/2019 3:43 PM EDT Kevin Paredes RN * Do you have serious difficulty walking or climbing stairs? Answer Date of Assessment Author No 08/13/2019 3:43 PM EDT Kevin Paredes RN * Do you have difficulty dressing or bathing? Answer Date of Assessment Author No 08/13/2019 3:43 PM EDT Kevin Paredes RN * Because of a physical, mental, or emotional condition, do you have difficulty doing errands alone such as visiting a doctor's office or shopping? Answer Date of Assessment Author No 08/13/2019 3:43 PM EDT Kevin Paredes RN documented as of this encounter Mental Status * Because of a physical, mental, or emotional condition, do you have serious difficulty concentrating, remembering, or making decisions? Answer Entry Date Author No 08/13/2019 3:43 PM EDT Kevin Paredes RN documented in this encounter Plan of Treatment Upcoming Encounters Date Type Department Care Team (Late st Contact Info) Description 06/07/2025 11:10 AM EDT Office Visit Orthopaedics [address] [place] [address] [place] [address] [place], [place] [id number] Right Hip Issues documented as of this encounter Visit Diagnoses Not on filedocumented in this encounter Care Teams Visual Merchandising Specialist Relationship Specialty Start Date End Date Roland Brown DO PCP - General 09/21/07 [place] [address] [place] [address] Specialty Bulk Picker Radiation Oncology 06/12/21 Kathryn Painter, RN Specialty Bulk Picker Garage Door Hanger Oncology 08/11/24 documented as of this encounter
--- OUTSIDE RECORDS SUMMARY | 2025-04-28 14:31 | XMS_ITS | Encounter Summary ---
Author Organization [facility] Address [address] [place] [address] Care Team Providers Care Auto Bench Mechanic Name Role Phone Roland Brown Primary Care Provider [phone] Kizzy Galloway RN Unavailable Kathryn Painter RN Unavailable Unavaila ble Source Comments In the event this information is protected by the Federal Confidentiality of Alcohol and Drug AbusePatient Records regulations: The Federal rules restrict any use of the information to criminally investigate or prosecute any alcohol or drug abuse patient.[facility] Encounter Details Date Type Department Care Team (Late st Contact Info) Description 07/24/2023 Get Medical Advice Pulmonary Medicine [address] [place] [phone] Heidi Lindquist MD [address] [place] [address] Health concerns Social History Tobacco Use Types Packs/Day Years [...] is lower risk 7 06/27/2023 Data from: https://www.neighborhoodatlas.medicine.[facility]/. Last address used for calculation [address] [...] 06/07/2025 11:10 AM EDT Office Visit Orthopaedics [address] [place] [address] [place] [address] [place], [place] [phone] Right Hip Issues documented as of this encounter Visit Diagnoses Not on filedocumented in this encounter Care Teams Auto Bench Mechanic Relationship Specialty Start Date End Date Roland Brown DO PCP - General 09/21/07 Kizzy Galloway, NIKITA [address] [place] [id number] Specialty Director Reactor Projects Radiation Oncology 06/12/21 Kathryn Painter, RN Specialty Director Reactor Projects Clinic Charge Nurse Oncology 08/11/24 documented as of this encounter
--- OUTSIDE RECORDS SUMMARY | 2025-04-28 14:32 | XMS_ITS | Encounter Summary ---
Author Organization [facility] Address [address] [place] [address] Care Team Providers Care International Marketing Manager Name Role Phone Roland Brown Primary Care Provider [phone] Kizzy Galloway RN Unavailable Kathryn Painter RN Unavailable Unavaila ble Source Comments In the event this information is protected by the Federal Confidentiality of Alcohol and Drug AbusePatient Records regulations: The Federal rules restrict any use of the information to criminally investigate or prosecute any alcohol or drug abuse patient.[facility] Encounter Details Date Type Department Care Team (Late st Contact Info) Description 08/12/2019 Surgical Case HOSP MAIN G090 [address] [place] [address] [place] [address] [place] [address] Social History Tobacco Use Types Packs/Day Years Used Date Smoking Tobacco: Never Smokeless Tobacco: Never Alcohol Use Standard Drinks/Week Comments Yes 0 (1 standard drink = 0.6 oz pur e alcohol) 3 drinks per month PHQ-2 Answer Date Recorded PHQ2 Score 1 08/12/2019 Comments No Sex and Gender Information Value Date Recorded Sex Assigned at Not on file Legal Sex Female 9:11 AM EST Gender Identity Not on file Sexual Orientation Not on file documented as of this encounter Plan of Treatment Upcoming Encounters Date Type Department Care Team (Late st Contact Info) Description 06/07/2025 11:10 AM EDT Office Visit Orthopaedics [address] [place] [address] [place] [address] [place], [place] [phone] Right Hip Issues documented as of this encounter Visit Diagnoses Not on filedocumented in this encounter Care Teams International Marketing Manager Relationship Specialty Start Date End Date Roland Brown DO PCP - General 09/21/07 Kizzy Galloway, NIKITA [address] [place] [address] Specialty Automatic Door Mechanic Radiation Oncology 06/12/21 Kathryn Painter, RN Specialty Automatic Door Mechanic Automotive Sales Executive Oncology 08/11/24 documented as of this encounter
--- OUTSIDE RECORDS SUMMARY | 2025-04-28 14:32 | XMS_ITS | Patient Health Record ---
Author Organization [facility] Address [address] [place] [address] Care Team Providers Care Recreation Adviser Name Role Phone Roland Brown DO Primary Care Provider Najma Billings Unavailable [phone] Allergies No Known Allergies Results Component Value Reference Range Notes CBC AUTO DIFF (Not yet revie wed by provider) Interpretation: Performing Lab: Notes/Report: [facility] , White Blood Count 4.3 4.0-11.0 10 3/uL Red Blood Count 4.49 4.20-5.40 10 6/uL Hemoglobin 13.1 12.0-16.0 g/dL Hematocrit 40.6 36.0-48.0 % Mean Corpuscular Volume 90.4 81.0-99.0 fL Mean Corpuscular Hemoglobin 29.2 26.7-34.0 pg Mean Corpuscular HGB Conc 32.3 29.9-35.2 g/dL Red Cell Distribution Width 12.7 11.0-15.0 % Platelet Count 192 150-450 10 3/uL Mean Platelet Volume 9.6 9.5-13.5 fL Neutrophils Percent Auto 53.5 43.0-75.0 % Lymphocytes Percent Auto 29.7 20.5-60.0 % Monocytes Percent Auto 11.0 1.7-12.0 % Eosinophils Percent Auto 5.4 0.9-7.0 % Basophils Percent Auto 0.2 0.2-2.0 % Immature Granulocytes Pct Auto 0.2 0.0-0.5 % Neutrophils Absolute Auto 2.3 1.4-6.5 10 3/uL Lymphocytes Absolute Auto 1.3 1.2-3.8 10 3/uL Monocytes Absolute Auto 0.5 0.3-0.8 10 3/uL Eosinophils Absolute Auto 0.2 0.0-0.7 10 3/uL Basophils Absolute Auto 0.0 0.0-0.1 10 3/uL Immature Granulocytes Abs Auto 0.01 0.00-0.03 10 3/uL Performing Lab: see note ML - [facility] LB TSH (Not yet reviewed by pro vider) Interpretation: Performing Lab: Notes/Report: [facility] , Thyroid Stimulating Hormone <0.007 0.358-3.740 u IU/mL Performing Lab: see note ML - [facility] LB IRON AND TIBC (Not yet revie wed by provider) Interpretation: Performing Lab: Notes/Report: [facility] , Iron 39.0 50.0-170.0 ug/dL Total Iron Binding Capacity 279.0 250.0-450.0 u g/dL Percent Iron Saturation 14.0 Performing Lab: see note ML - [facility] LB FREE T4 (Not yet reviewed by provider) Interpretation: Performing Lab: Notes/Report: [facility] , Free T4 2.46 0.76-1.46 ng/dL Performing Lab: see note ML - [facility] LB FERRITIN (Not yet reviewed b y provider) Interpretation: Performing Lab: Notes/Report: [facility] , Ferritin 128.0 8.0-252.0 ng/mL Performing Lab: see note ML - [facility] LB Reason For Referral No Information Medications Medication SIG (Take, Route, Fr equency, Duration) Notes Start Date End Date Status Effexor 01/20/2024 Active Meloxicam 15 MG 1 tablet Orally Once a day for 30 days 01/20/2024 Active Social History Tobacco Use: Social History Observation Description Date Details (start date - stop date) Never Smoker NA - NA Tobacco Use/Smoking Question Answer Notes Patient is a nonsmoker Encounters Encounter Location Date Provider Diagnosis [facility] Oncology [address] [place] [address] 05/04/2024 Najma Barbour Plan Of Treatment Pending Test Test Name Order Date CBC AUTO DIFF 05/03/2024 FERRITIN 05/03/2024 FREE T4 05/03/2024 IRON AND TIBC 05/03/2024 TSH 05/03/2024 Insurance Providers Payer Name Payer Address Payer Phone Subscriber Number Group Number Insured Name Patient Relationship to Insured Coverage Start Date Coverage End Date [employer] [address] [place] [address] [id number] Isabel Waddell Self - patient is the insured Medical (General) History Medical History History ICD Code high blood pressure thyroid Surgical History Surgery Date(Month/Year) hip replacement knee surgery x3 both shoulders wrist
--- OUTSIDE RECORDS SUMMARY | 2025-04-28 14:32 | XMS_ITS | Encounter Summary ---
Author Organization [facility] Address [address] [place] [address] Care Team Providers Care Foundry Tender Name Role Phone Roland Brown Primary Care Provider [phone] Kizzy Galloway RN Unavailable Kathryn Painter RN Unavailable Unavaila ble Source Comments In the event this information is protected by the Federal Confidentiality of Alcohol and Drug AbusePatient Records regulations: The Federal rules restrict any use of the information to criminally investigate or prosecute any alcohol or drug abuse patient.[facility] Encounter Details Date Type Department Care Team (Late st Contact Info) Description 09/13/2019 Patient Msg Gynecology Oncology [address] [place] [address] [place] [address] [place] [address] RE: Appointment Cancellation Request Social History Tobacco Use [...] 06/07/2025 11:10 AM EDT Office Visit Orthopaedics [address] [place] [address] [place] [address] [place] [address] Right Hip Issues documented as of this encounter Visit Diagnoses Not on filedocumented in this encounter Care Teams Foundry Tender Relationship Specialty Start Date End Date Roland Brown DO PCP - General 09/21/07 [place] [address] [place] [address] Specialty Depot Agent Radiation Oncology 06/12/21 Kathryn Painter, RN Specialty Depot Agent Manufacturing Worker Oncology 08/11/24 documented as of this encounter
--- OUTSIDE RECORDS SUMMARY | 2025-04-28 14:32 | XMS_ITS | Encounter Summary ---
Author Organization [facility] Address [facility] [place] [address] Care Team Providers Care Carpenter General Name Role Phone KevinRoland Bernie JACKSON Primary Care Provider Kizzy Galloway RN Unavailable Kathryn Painter RN Unavailable Unavaila ble Source Comments In the event this information is protected by the Federal Confidentiality of Alcohol and Drug AbusePatient Records regulations: The Federal rules restrict any use of the information to criminally investigate or prosecute any alcohol or drug abuse patient.[facility] Encounter Details Date Type Department Care Team (Late Contact Info) Description 08/04/2019 Patient Msg Medical Records [address] [place] [id number] Provider, [facility] Prescribed Patient Education Video(s) Social History Tobacco Use Types Packs/Day Years Used Date Smoking Tobacco: Never Smokeless Tobacco: Never Alcohol Use Standard Drinks/Week Comments Yes 0 (1 standard drink = 0.6 oz pur e alcohol) 3 drinks per month Comments No Sex and Gender Information Value Date Recorded Sex Assigned at Not on file Legal Sex Female 9:11 AM EST Gender Identity Not on file Sexual Orientation Not on file documented as of this encounter Plan of Treatment Upcoming Encounters Date Type Department Care Team (Late Contact Info) Description 06/07/2025 11:10 AM EDT Office Visit Orthopaedics [address] [place] [address] [place] [address] [place], [place] [id number] Right Hip Issues documented as of this encounter Visit Diagnoses Not on filedocumented in this encounter Care Teams Carpenter General Relationship Specialty Start Date End Date Roland Brown DO PCP - General 09/21/07 Kizzy Galloway, NIKITA [address] [place] [address] Specialty Judicial Assistant Radiation Oncology 06/12/21 Kathryn Painter, RN Specialty Judicial Assistant Manufacturing Coordinator Oncology 08/11/24 documented as of this encounter
--- OUTSIDE RECORDS SUMMARY | 2025-04-28 14:32 | XMS_ITS | Encounter Summary ---
Author Organization [facility] Address [address] [place] [address] Care Team Providers Care Bolt Machine Operator Name Role Phone Kevin Roland Gibbs DO Primary Care Provider [phone] Kizzy Galloway RN Unavailable Kathryn Painter RN Unavailable Unavaila ble Source Comments In the event this information is protected by the Federal Confidentiality of Alcohol and Drug AbusePatient Records regulations: The Federal rules restrict any use of the information to criminally investigate or prosecute any alcohol or drug abuse patient.[facility] Encounter Details Date Type Department Care Team (Late st Contact Info) Description 11/26/2022 Get Medical Advice Gynecology Oncology [address] [place] [address] Kip Reynolds MD [address] [place] [address] Colonoscopy follow up Social History Tobacco Use Types Packs/Day Years Used Date Smoking Tobacco: Never Smokeless Tobacco: Never Alcohol Use Standard Drinks/Week Comments Yes 0 (1 standard drink = 0.6 oz pur e alcohol) 3 drinks per month PHQ-2 Answer Date Recorded PHQ-2 score 0 09/20/2021 Area Deprivation Index Answer Date John rded National Score (1-100), lower number is lower ri sk Not on file 10/24/2020 State Score (1-10), lower number is lower risk N ot on file 10/24/2020 Data from: https://www.neighborhoodatlas.medicine.[facility]/. Last address used for calculation Not on file 10/24/2020 Comments No Sex and Gender Information Value [...] 06/07/2025 11:10 AM EDT Office Visit Orthopaedics [address] [place], [place] [id number] [place] [address] [place], [place] [id number] Right Hip Issues documented as of this encounter Visit Diagnoses Not on filedocumented in this encounter Care Teams Bolt Machine Operator Relationship Specialty Start Date End Date Roland Brown DO PCP - General 09/21/07 [place] [address] [place] [id number] Specialty Engineer Radiation Oncology 06/12/21 Kathryn Painter, RN Specialty Engineer Master Sheet Clerk Oncology 08/11/24 documented as of this encounter
--- OUTSIDE RECORDS SUMMARY | 2025-04-28 14:32 | XMS_ITS | Patient Health Record ---
Author Organization [facility] [place] Address [address] [place] [address] Support Name Relationship Address Phone Lj Waddell Guarantor Unknown [phone] Reason For Referral No Information Plan Of Treatment No Information
--- OUTSIDE RECORDS SUMMARY | 2025-04-28 14:33 | XMS_ITS | Clinical Summary ---
Author Organization [facility] Address [address] [place] [address] Care Team Providers Care Felt Hanger Name Role Phone Roland Brown DO Primary Care Provider [phone] Kizzy Galloway RN Unavailable Kathryn Painter RN Unavailable Unavaila ble Allergies No known active allergies Medications * This document contains information received from the source organization and may not represent a complete record from that organization. MULTIVITAMIN TAB Take by mouth. 0 8 Active B COMPLEX VITAMINS CAP Take one(1) capsule daily. 0 8 Active CALCIUM CARBONATE-VIT D3-MINERALS 600 MG-400 UNIT TAB Take 1 tablet by mouth two times a day. 0 9 Active [id number]- FISH OIL-L.CASEI ORAL Take by mouth once daily. Active Lactobac no.41/Bifidoba ct no.7 (PROBIOTIC-10 ORAL) Take by mouth once daily. Active venlafaxine ER (EFFEXOR XR) 150 mg 24 hr capsule Take 150 mg by mouth daily at bedtime. 9 Active TURMERIC ORAL Take 1,000 mg by mouth once daily. Active iv contrast (will be provided with radiology [...] CT contrast administration guidelines link. 1 Each 1 Active Additional Information Patient not taking.Reason: Other, Reported on 06/27/2023 enteric contrast (will be provided with radiology test) For CT CHESTABD/PEL W IVCON Routine order Administer, As Directed One Time Only, via Oral, Rectal, both Oral and Rectal, Enteric Tube, Stoma or Indwelling Catheter, Enteric Contrast as designated per enteric contrast guidelines 1 Each 1 Active Additional Information Patient not taking.Reason: Other, Reported on 06/27/2023 ascorbic acid, vitamin C, (VITAMIN C) 500 mg tablet Take 500 mg by mouth once daily. Active carvedilol (COREG) 25 mg tablet Take 1 tablet by mouth twice daily. 1 Active dicyclomine (BENTYL) 10 mg capsule Take 1 capsule by mouth before meals and at bedtime. As needed. 1 Active ibuprofen (MOTRIN) 800 mg tablet Take by mouth q 8 HR. 0 Active ferrous sulfate (IRON ORAL) Take 28 mg by mouth once daily. Active cholecalcifero l, vitD3,/vit K2 (VITAMIN D3-VITAMIN K2 ORAL) Take 1 tablet by mouth once daily. Plus vitamin A and K1 Active MAGNESIUM ORAL Take 240 mg by mouth two times a day. Active methIMAzole (TAPAZOLE) 10 mg tablet Take 10 mg by mouth two times a day. 4 Active meloxicam (MOBIC) 15 mg tablet Take 1 tablet by mouth once daily. 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 Was on medication for approximately 6 months. Med was stopped after labs came back WNL. Records received from Dr. Brown. TSH of 0.609 and free T4 of 0.72 on 02/23/19. Scanned in [facility]. Abdominal pain, unspecified site 03/31/2008 Hypertension Assessment & Plan (07/28/2019 9:54 AM EDT): Assessment: Stable. On carvedilol. BP today 145/92. Prolactinoma Overview (09/20/2021): in the early 80s, diagnosed due to Encounters Date Type Department Care Team Description 02/22/2025 Telephone Orthopaedics [address] [facility] [place] [address] Clem Buenrostro MD Surgery Scheduling 02/21/2025 10:34 AM EDT - 02/21/2025 11:59 PM EDT Hospital Encounter Radiology [address] [place] [address] Pain in right hip [M25.551] Discharge Disposition: Home 02/21/2025 10:30 AM EDT Office Visit Orthopaed[place] [address] [place] [address] Clem Buenrostro MD Status post right hip replacement (Primary Dx); Pain in right hip 02/21/2025 Patient Msg Orthopaedics [address] [facility] [address] Clem Buenrostro MD Right hip 02/21/[address] [facility] [address] [place] [address] [place] [address] Clem Buenrostro MD 02/14/2025 Travel from Last 3 Months Immunizations Immunization Administration Dates Next Due COVID-19 original vaccine, f ull dose, monovalent (MODERNA) 06/27/2021,11/21/2020 Family History Medical History Relation Comments Thyroid Maternal Grandmother Thyroid Mother Relation Status Comments Father Alive Maternal Grandmother Mother Alive Social History Tobacco Use Types Packs/Day Years Used Date Smoking Tobacco: Never Smokeless Tobacco: Never Tobacco Cessation:Counseling Given: Not Answered Alcohol Use Standard Drinks/Week Comments Yes 0 (1 standard drink = 0.6 oz pur e alcohol) 3 drinks per month PHQ-2 Answer Date Recorded PHQ-2 score 0 02/14/2025 Area Deprivation Index Answer Date John rded National Score (1-100), lower number is lower ri sk 79 06/27/2023 State Score (1-10), lower number is lower risk 7 06/27/2023 Data from: https://www.neighborhoodatlas.medicine.[facility].edu/. Last address used for calculation [address] 06/27/2023 Comments No Sex and Gender Information Value Date Recorded Sex Assigned at Not on file Legal Sex Female 9:11 AM EST Gender Identity Not on file Sexual Orientation Not on file Last Filed Vital Signs Vital Sign Reading Time Taken Comments Blood Pressure 141/75 08/05/2024 11:44 AM EDT Pulse 81 08/05/2024 11:44 AM EDT Temperature 37.2 C (99 F) 08/05/2024 11:44 AM EDT Respiratory Rate 16 09/02/2023 1:25 PM EDT Oxygen Saturation 97% 08/05/2024 11: 44 AM EDT Inhaled Oxygen Concentration - - Weight 67.1 kg (147 lb 14.9 oz) 024 11:44 AM EDT Height 167.6 cm (5' 6 ) 08/05/2024 11:4 4 AM EDT Body Mass Index 23.88 08/05/2024 11:44 AM EDT Plan of Treatment Upcoming Encounters Date Type Department Care Team (Late st Contact Info) Description 06/07/2025 11:10 AM EDT Office Visit Orthopaedics [address] [place] [address] [place] [address] [place], [place] [id number] Right Hip Issues Health Maintenance Due Date Last Done Comments Annual PCP Team Chronic Dise ase Visit 1978 Anxiety Screening 1978 Depression Screening 1978 HIV Screening 1978 Hepatitis C Screening 1978 DTaP,Tdap,Td Vaccine (1 - Tdap) 1979 CT Colonography 2005 Cologuard (FIT-DNA) 2005 Fecal Occult Blood 2005 Lipid Screening 2005 Sigmoidoscopy 2005 Pneumococcal Vaccine: 50+ (1 of 1 - PCV) 2010 Shingrix Vaccine (1 of 2) 2010 Mammogram Screening 10/18/2020 10/18/2019, 10/18/2019, 10/15/2019, Additional history exists Colonoscopy 09/26/2023 09/26/2022 Colorectal Cancer Screening 09/26/2023 Covid-19 Vaccine (3 - 2023-2 5 season) 2024 06/27/2021, 11/21/2020 Influenza Vaccine (Season Ended) 2025 Cervical Cancer Screening 08/05/2025 08/05/2024, Diabetes Screening 08/29/2026 08/29/2023, 0 07/04/2023, 11/21/2021, Additional history exists RSV Vaccine (1 - 1-dose 75+ series) 2035 Medical Devices Implanted Type Area Director Of Scientific Research Device Identifier Shelf Expiration Date Model / Serial / Lot Joint - Hip Joint - Hip Right: Bone - Hip Procedures Procedure Name Priority Date/Time Associated Diagnosis Comments SED RATE WESTERGREN Routine 02/21/2025 1 :06 PM EDT Pain in right hip COMPLETE BLOOD COUNT Routine 02/21/2025 1:06 PM EDT Pain in right hip C-REACTIVE PROTEIN (CRP) Routine 02/21/2025 1:06 PM EDT Pain in right hip XR HIP GENERAL 3V PELV/AP/LAT RIGHT Routine 02/21/2025 10:48 AM EDT Pain in right hip PAP TEST Routine 08/05/2024 1:17 PM EDT Vaginal bleeding Screening for vaginal cancer History of endometrial cancer COMPREHENSIVE METABOLIC PANEL Routine 08/29/2023 11:50 AM EDT Radiation proctitis COLONOSCOPY (THERAPEUTIC) Routine 09/26/2022 11:28 AM EST from Last 3 Months or Most Recently Relevant to Health Maintenance Results * SEDIMENTATION RATE, CHAVA (02/21/2025 1:06 PM EDT) Sed Rate, Chava 5 0 - 20 mm/hr 02/21/2025 4:29 PM EDT [facility] Blood BLOOD SPECIMEN / Unknown Venipuncture / Unknown 02/21/2025 1:06 PM EDT 02/21/2025 1:06 PM EDT Clem Buenrostro MD LABORATORY Final Result [facility] [address] [facility] [address] [place] [address], [place] * COMPLETE BLOOD COUNT (02/21/2025 1:06 PM EDT) WBC 4.95 3.70 - 11.00 k/uL 02/21/2025 3:14 PM EDT [facility] RBC 4.81 3.90 - 5.20 m/uL 02/21/2025 3:14 PM EDT [facility] Hemoglobin 15.1 11.5 - 15.5 g/dL 02/21/2025 3:14 PM EDT [facility] Hematocrit 45.8 36.0 - 46.0 % 02/21/2025 3:14 PM EDT [facility] MCV 95.2 80.0 - 100.0 fL 02/21/2025 3:14 PM EDT [facility] MCH 31.4 26.0 - 34.0 pg 02/21/2025 3:14 PM EDT [facility] MCHC 33.0 30.5 - 36.0 g/dL 02/21/2025 3:14 PM EDT [facility] RDW-CV 13.2 11.5 - 15.0 % 02/21/2025 3:14 PM EDT [facility] Platelet Count 241 150 - 400 k/uL 02/21/2025 3:14 PM EDT [facility] MPV 9.6 9.0 - 12.7 fL 02/21/2025 3:14 PM EDT [facility] Absolute nRBC <0.01 <0.01 k/uL 02/21/2025 3:14 PM EDT [facility] Blood BLOOD SPECIMEN / Unknown Venipuncture / Unknown 02/21/2025 1:06 PM EDT 02/21/2025 1:06 PM EDT Clem Buenrostro MD LABORATORY Final Result [facility] [address] [facility] [place] [id number], [place] * C-REACTIVE PROTEIN (02/21/2025 1:06 PM EDT) CRP <0.3 <0.9 mg/dL 02/21/2025 8:33 PM EDT [facility] Blood BLOOD SPECIMEN / Unknown Venipuncture / Unknown 02/21/2025 1:06 PM EDT 02/21/2025 1:06 PM EDT Clem Buenrostro MD LABORATORY Final Result Performing Organization Address City/[facility]/ZIP Co de Phone Number [facility] [address] [place] [id number], [place] * XR HIP GENERAL 3V PELV/AP/LAT RIGHT (02/21/2025 10:48 AM EDT) Anatomical Region Laterality Modality Hip Other 02/21/2025 10:4 8 AM EDT Impressions 02/21/2025 11:33 AM EDT IMPRESSION: Right total hip arthroplasty in place with findings concerning for femoral component loosening. Trimmer Hand: DANA Transcribe Date/Time: Feb 21 2025 11:29A Dictated by : EMELY GREEN MD This examination was interpreted and the report reviewed and electronically signed by: EMELY GREEN MD on Feb 21 2025 11:31AM EST Narrative 02/21/2025 11:33 AM EDT * * *Final Report* * * DATE [...] and pubic symphysis. No other significant abnormality. Procedure Note Provider, [facility] - 02/21/2025 * * *Final Report* * [...] and pubic symphysis. No other significant abnormality. IMPRESSION IMPRESSION: Right total hip arthroplasty in place with findings concerning for femoral component loosening. Trimmer Hand: DANA Transcribe Date/Time: Feb 21 2025 11:29A Dictated by : EMELY GREEN MD This examination was interpreted and the report reviewed and electronically signed by: EMELY GREEN MD on Feb 21 2025 11:31AM EST us Clem STANTON-PAMDenae Final Result * PAP TEST (08/05/2024 1:17 PM EDT) Case Report Gynecologic Cytology Report Case: [id number] Authorizing Provider: Elida Chacko APRN.CIRCUS SUPERVISOR Collected: 08/05/2024 01:17 PM Ordering Location: Gynecology Oncology Received: 08/05/2024 07:53 PM First Screen: Silvia Lr, CT, ASCP Pathologist: Brice Cervantes MD Specimen: Pap Test, ThinPrep, Vagina 08/16/2024 11:23 AM EDT [facility] Specimen Adequacy Unsatisfactory for evaluation. Limited cellularity. 08/16/2024 11:23 AM EDT [facility] Interpretation Unable to perform interpretation due to unsatisfactory specimen. 08/16/2024 11:23 AM EDT [facility] at 1123 EDT Clinical History Abnormal Bleeding (Describe) Hysterectomy, Total 08/16/2024 11:23 AM EDT [facility] Gross Description A. Vagina Glacial Acetic Acid added. 08/16/2024 11:23 AM EDT [facility] HPV Reflex Yes HPV 08/16/2024 11:23 AM EDT [facility] Pap Disclaimer The Pap Smear is a screening test for cervical cancer. False negative results occur with all screening tests, emphasizing the need for rescreening at recommended intervals, and clinical correlation. 08/16/2024 11:23 AM EDT [facility] Performing Lab Technical component, shipping and receiving clerk screening performed at [facility], [address] [place] [address] CLIA# [id number] Diagnostic interpretation performed at [facility], [address] [place] [address] CLIA# [id number] Tradeshow Worker: Anant Dumont M.D. 08/16/2024 11:23 AM EDT [facility] Sterile Fluid/Body Fluid VAGINAL STRUCTURE / Unknown Non Blood / Unknown 08/05/2024 1:17 PM EDT 08/05/2024 7:53 PM EDT us Elida Chacko CEMENT CRUSHER OPERATOR.CIRCUS SUPERVISOR CYTOLOGY Final Re sult [facility] [address] [place] [address] [place] [address], [place] * (ABNORMAL) COMP METABOLIC PANEL (08/29/2023 11:50 AM EDT) [facility] Protein, Total 6.4 6.3 - 8.0 g/dL 08/29/2023 4:40 PM EDT [facility] Albumin 3.9 3.9 - 4.9 g/dL 08/29/2023 4:40 PM EDT [facility] Calcium, Total 9.5 8.5 - 10.2 mg/dL 08/29/2023 4:40 PM EDT [facility] Bilirubin, Total 0.3 0.2 - 1.3 mg/dL 08/29/2023 4:40 PM T [facility] Alkaline Phosphatase 164(H) 34 - 123 U/L 08/29/2023 4:40 PM EDT [facility] AST 48(H) 13 - 35 U/L 08/29/2023 4:40 PM EDT [facility] ALT 45(H) 7 - 38 U/L 08/29/2023 4:40 PM T [facility] Glucose 94 74 - 99 mg/dL 08/29/2023 4:40 PM T [facility] Comment: The [place] Diabetes Association (ADA) provides guidance for cutoff [...] Standards of Medical Care in Diabetes 2016, [place] Diabetes Association. Diabetes Care. 2016.39(Suppl 1). BUN 13 7 - 21 mg/dL 08/29/2023 4:40 PM T [facility] Creatinine 0.61 0.58 - 0.96 mg/dL 08/29/2023 4:40 PM T [facility] Sodium 141 136 - 144 mmol/L 08/29/2023 4:40 PM T [facility] Potassium 4.5 3.7 - 5.1 mmol/L 08/29/2023 4:40 PM EDT [facility] Chloride 107(H) 97 - 105 mmol/L 08/29/2023 4:40 PM EDT [facility] CO2 24 22 - 30 mmol/L 08/29/2023 4:40 PM EDT [facility] Anion Gap 10 9 - 18 mmol/L 08/29/2023 4:40 PM EDT [facility] Estimated Glomerular Filtration Rate 101 >=60 mL/min/1.7 3m 08/29/2023 4:40 PM EDT [facility] Comment:Estimated Glomerular Filtration Rate (eGFR) is calculated using the 2020 CKD-EPI creatinine equation. This equation utilizes serum creatinine, sex, and age as parameters. The creatinine assay has traceable calibration to isotope dilution- mass spectrometry. Refer to KDIGO guidelines for clinical interpretation. In patients with unstable renal function, e.g. those with acute kidney injury, the eGFR may not accurately reflect actual GFR. Blood BLOOD SPECIMEN / Unknown Venipuncture / Unknown 08/29/2023 11:50 AM EDT 08/29/2023 11:50 AM EDT Clem Saba DO LABORATORY Final Resul t [facility] [address] [place] [address], * COLONOSCOPY (THERAPEUTIC) (09/26/2022 11:28 AM EST) Anatomical Region Laterality Modality Other 09/26/2022 11:2 8 AM EST Narrative 09/26/2022 12:13 PM EST A31 Gastrointestinal Endoscopy Patient Name: Isabel Stover Procedure Date: 09/26/2022 11:28 AM Date of : 1960 Admit Type: Outpatient Age: 62 Room: [address] Gender: Female Note Status: Finalized Attending MD: Leila Alamo MD Procedure: Colonoscopy Indications: Hematochezia Providers: Leila Alamo MD Patient Profile: Last Colonoscopy: date unknown. Referring Physician: Elida Chacko (Referring MD) Medicines: Meperidine 100 mg IV, Midazolam 4 mg IV Complications: No immediate complications. Requesting Provider: Procedure: Pre-Anesthesia Assessment: - ASA Grade Assessment: III - A patient with severe systemic disease. After I obtained informed consent, the scope was passed under direct vision. Throughout the procedure, the patient's blood pressure, pulse, and oxygen saturations were monitored continuously. The Colonoscope was introduced through the anus and advanced to the cecum, identified by the ileocecal valve. The colonoscopy was performed with difficulty due to a tortuous colon. Successful completion of the procedure was aided by increasing the dose of sedation medication. The patient tolerated the procedure fairly well. The quality of the bowel preparation was fair. The ileocecal valve and the rectum were photographed. Moderate Sedation: The administration of moderate sedation was initiated at 11:40 AM. Findings: Multiple diffuse angioectasias with bleeding were found in the distal rectum. Coagulation for hemostasis using argon plasma at 1.4 liters/minute and 30 garcia was successful. A moderate amount of semi-liquid stool was found in the entire colon, precluding visualization. Impression: - Preparation of the colon was fair. - Multiple bleeding colonic angioectasias. Treated with argon plasma coagulation (APC). - Stool in the entire examined colon. - No specimens collected. Estimated Blood Loss: Estimated blood loss: none. Recommendation: - Discharge patient to home. - Resume previous diet today. - Patient has a contact number available for emergencies. The signs and symptoms of potential delayed complications were discussed with the patient. Return to normal activities tomorrow. Written discharge instructions were provided to the patient. - Continue present medications. - Repeat colonoscopy when medically indicated. Procedure Code(s): --- Professional --- 70906, Colonoscopy, flexible; with control of bleeding, any method CPT copyright 2020 [place] [employer]. All rights reserved. The codes documented in this report are preliminary and upon physician coder review may be revised to meet current compliance requirements. Attending Participation: I personally performed the entire procedure. I was present and participated during the entire procedure, including non-marcum portions, and during the administration and monitoring of Moderate Sedation. Scope In: 11:40:03 AM Scope Out: 12:08:21 PM MD Leila Bauer MD 09/26/2022 12:11:20 PM This report has been signed electronically by Leila Alamo MD Number of Addenda: 0 Note Initiated On: 09/26/2022 11:28 AM Elida Ginna HERNÁNDEZ.CIRCUS SUPERVISOR DIGESTIVE DISEASE Final Result from Last 3 Months or Most Recently Relevant to Health Maintenance Insurance [employer] PPO Advance Directives Documents on File Type Date Recorded Patient Paper Inserter 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 Advance Directive(s) 07/28/2019 9:20 AM Care Teams Felt Hanger Relationship Specialty Start Date End Date Roland Brown DO PCP - General 09/21/07 Kizzy Galloway, NIKITA [address] [place] [address] Specialty Product Lead Radiation Oncology 06/12/21 Kathryn Painter RN Specialty Product Lead Conservation Agent Oncology 08/11/24
--- OUTSIDE RECORDS SUMMARY | 2025-04-28 14:33 | XMS_ITS | Encounter Summary ---
Author Organization [facility] Address [address] [place] [address] Care Team Providers Care Commutator Tester Name Role Phone KevinRoland Bernie JACKSON Primary Care Provider [phone] Kizzy Galloway RN Unavailable Kathryn Painter RN Unavailable Unavaila ble Source Comments In the event this information is protected by the Federal Confidentiality of Alcohol and Drug AbusePatient Records regulations: The Federal rules restrict any use of the information to criminally investigate or prosecute any alcohol or drug abuse patient.[facility] Reason for Visit * Reason Comments Surgery Scheduling Encounter Details Date Type Department Care Team (Late st Contact Info) Description 02/22/2025 Telephone Orthopaedics [address] [place] [address] [place] [address] [place] [address] Surgery Scheduling Social History Tobacco Use Types Packs/Day Years [...] is lower risk 7 06/27/2023 Data from: https://www.neighborhoodatlas.medicine.[facility]/. Last address used for calculation [address] 06/27/2023 Comments No Sex and Gender [...] Kevin Paredes RN documented in this encounter Miscellaneous Notes * Telephone Encounter - Dena Alvarado - 02/22/2025 11:50 AM EDT Patient is calling in to discuss changing her surgery date from 03/30/25. She would like to consideroptions for the Fall of 2024. Please advise at [phone]. Thank you! documented in this encounter Plan of Treatment Upcoming Encounters Date Type Department Care Team (Late st Contact Info) Description 06/07/2025 11:10 AM EDT Office Visit Orthopaedics [address] [place] [address] [place] [address] [place], [place] [id number] Right Hip Issues documented as of this encounter Visit Diagnoses Not on filedocumented in this encounter Care Teams Commutator Tester Relationship Specialty Start Date End Date Roland Brown DO PCP - General 09/21/07 Kizzy Galloway, NIKITA [address] [place] [address] Specialty Risk Control Representative Radiation Oncology 06/12/21 Kathryn Painter RN Specialty Risk Control Representative Belt Loop Cutter Oncology 08/11/24 documented as of this encounter
--- OUTSIDE RECORDS SUMMARY | 2025-04-28 14:33 | XMS_ITS | Encounter Summary ---
Author Organization [facility] Address [facility] [place] [address] Care Team Providers Care Central Service Technician Name Role Phone Kevin Roland Gibbs DO Primary Care Provider [phone] Kizzy Galloway RN Unavailable Kathryn Painter RN Unavailable Unavaila ble Source Comments In the event this information is protected by the Federal Confidentiality of Alcohol and Drug AbusePatient Records regulations: The Federal rules restrict any use of the information to criminally investigate or prosecute any alcohol or drug abuse patient.[facility] Encounter Details Date Type Department Care Team (Late st Contact Info) Description 11/02/2024 Patient Msg Gynecology [address] [id number] Provider, Ccf Location change for Dr. Reynolds Social History Tobacco Use Types Packs/Day Years Used Date Smoking Tobacco: Never Smokeless Tobacco: Never Alcohol Use Standard Drinks/Week Comments Yes 0 (1 standard drink = 0.6 oz pur e alcohol) 3 drinks per month PHQ-2 Answer Date Recorded PHQ-2 score 0 08/04/2024 Area Deprivation Index Answer Date John rded National Score (1-100), lower number is lower ri sk 79 06/27/2023 State Score (1-10), lower number is lower risk 7 06/27/2023 Data from: https://www.neighborhoodatlas.[facility]/. Last address used for calculation [address] [...] 06/07/2025 11:10 AM EDT Office Visit Orthopaedics [address] [place] [address] [place] [address] [place] [address] Right Hip Issues documented as of this encounter Visit Diagnoses Not on filedocumented in this encounter Care Teams Central Service Technician Relationship Specialty Start Date End Date Roland Brown DO PCP - General 09/21/07 Kizzy Galloway, NIKITA [address] [place] [address] Specialty Final Armature Tester Radiation Oncology 06/12/21 Kathryn Painter, RN Specialty Final Armature Tester Link Machine Operator Oncology 08/11/24 documented as of this encounter
--- OUTSIDE RECORDS SUMMARY | 2025-04-28 14:33 | XMS_ITS | Encounter Summary ---
Author Organization [facility] Address [facility] [place] [address] Care Team Providers Care Case Management Specialist Name Role Phone Roland Brown Primary Care Provider Kizzy Galloway RN Unavailable Kathryn Painter RN Unavailable Unavaila ble Source Comments In the event this information is protected by the Federal Confidentiality of Alcohol and Drug AbusePatient Records regulations: The Federal rules restrict any use of the information to criminally investigate or prosecute any alcohol or drug abuse patient.[facility] Encounter Details Date Type Department Care Team (Late st Contact Info) Description 02/21/2025 Patient Msg Orthopaedics [address] [place] [address] [place] [address] [place] [address] Social History Tobacco Use Types Packs/Day Years [...] is lower risk 7 06/27/2023 Data from: https://www.neighborhoodatlas.medicine.[facility]/. Last address used for calculation [address] [...] Assessment Author No 08/13/2019 3:43 PM EDT Palmira Paredes RN * Do you have serious [...] 06/07/2025 11:10 AM EDT Office Visit Orthopaedics [address] [place] [address] [place] [address] [place], [place] [id number] Right Hip Issues documented as of this encounter Visit Diagnoses Not on filedocumented in this encounter Care Teams Case Management Specialist Relationship Specialty Start Date End Date Roland Brown DO PCP - General 09/21/07 Kizzy Galloway, NIKITA [address] [place] [phone] Specialty Screen Making Supervisor Radiation Oncology 06/12/21 Kathryn Painter RN Specialty Screen Making Supervisor Injector Assembler Oncology 08/11/24 documented as of this encounter
--- OUTSIDE RECORDS SUMMARY | 2025-04-28 14:33 | XMS_ITS ---
Author Organization [facility] Address [address] [place] [address] Care Team Providers Care Global Recruiter Name Role Phone Roland Brown DO Primary Care Provider [phone] Kizzy Galloway RN Unavailable Kathryn Painter RN Unavailable Unavaila ble Active Problems * This document contains information received from the source organization and may not represent a complete record from that organization. Problem Noted Date Diagnosed Date Other specified [...] T4 of 0.72 on 02/23/19. Scanned in Epic. Abdominal pain, unspecified site 03/31/2008 Hypertension Assessment & Plan (07/28/2019 9:54 AM EDT): Assessment: Stable. On carvedilol. BP today 145/92. 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 Past Treatment and Therapy Plans No past plan information found. 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 Possible late- and long-term effects that someone with this type of cancer and treatment may experience: ? Altered urinary/bladder functioning: urinary frequency, discomfort ? Difficulty Coping/Depression/Anxiety Familial Cancer Risk Assessment Genetic testing done: Yes If yes, what test were performed: Mismatch repair proteins (MLH1, PMS2, MSH2, MSH6) Results: MMR screening normal - endometrial cancer is NOT hereditary Follow-up and Cancer Surveillance Schedule Need for ongoing (adjuvant) treatment for cancer: Yes Follow-Up Item How Often Who's Responsible? Small Products I Assembler Oncologist Follow-up Every 4-6 months for 2 years, every 6 months for 3-5 years, then annually Small Products I Assembler Oncology CT Scan As clinically indicated Small Products I Assembler Oncology CA 125 N/A Small Products I Assembler Oncology Chest X-ray Annually Small Products I Assembler Oncology Radiation Oncologist N/A Radiation Oncology Pap Smear Testing With each visit Small Products I Assembler Oncology Breast Imaging Yearly after age 40 PCP or Small Products I Assembler Oncology Clinical Breast Exam At least annually PCP Self Breast Exam Monthly Self Skin Exam Annually PCP or barker operator Bone Density At age 65 if you have risk factors for osteoporosis PCP Colonoscopy Starting at age 50, every 10 years or sooner if clinically indicated PCP WhenTo Call Your Doctor Call your lining cleaner oncologist if you experience any of the following issues: Vaginal bleeding Abnormal vaginal discharge Anything that represents a brand new symptom Anything that represents a persistent symptom Anything you are worried about that might be related to the cancer coming back Please continue to see your primary care provider for all general health care recommended for a woman your age, including cancer screening tests. Cancer survivors may experience issues with the areas listed below. If you have any concerns in these or other areas, please speak with your doctors or nurses to find out how you can get help with them: Emotional and mental health Physical Functioning Memory or concentration loss Fatigue Insurance Weight changes School/Work Stopping smoking Financial advice or assistance Sexual functioning A number of lifestyle/behaviors can affect your ongoing health, including the risk for the cancer coming back or developing another cancer. Discuss these recommendations with your doctor or nurse: Tobacco use/cessation Alcohol use Weight management (loss/gain) Diet Physical activity Sun screen use Resources [employer] www.cancer.org Free, comprehensive patient services and programs designed to help patients with their information, day-to-day living, and emotional support needs. Cancer.Net www.cancer.net Brings the expertise and resources of the [place] Society of Clinical Oncology (ASCO), the voice of the world's cancer physicians, to people living with cancer and those who care for and care about them through research, professional education and patient and family support. Survivorship After Gynecologic Cancer: Managing Menopause and Treatment Side Effects https://www.cancer.net/blog/2016-06/tnouqxwvotwn-axlzk-xrbcjjtrkxo-cancer-managi tt-ioxzkhpzz-fyh-ffunayiep-dmqf-dtgjoar Centers for Disease Control and Prevention Gynecologic Cancer Survivor Stories https://www.cdc.gov/cancer/knowledge/survivor_stories.htm CancerCare - Medical related financial assistance www.cancercare.org (561) 281- BSWU Free, professional support services for anyone affected by cancer; people with cancer, caregivers, children, loved ones, and the bereaved. Programs include counseling and support groups, education, financial assistance, and practical help-all provided by professional oncology social workers (PIPE CAULKER). ChemoCare.com www.chemocare.com Website providing the latest information on chemotherapy and side effects. (Program through Paul Waverly's [facility] Initiative) 4th Jluis Program - Patient & Caregiver Mentoring Program www.4thangel.org Offers peer support for people living with, through, and beyond cancer. Resources also useful for family, friends and caregivers. The Gathering Place www.CAD Crowd.SnowBall A cancer support center in [place], [place] ([place]) offering a wide variety of free programs and services addressing the social, emotional, physical, and spiritual needs of individuals with cancer and their families and friends. LIVESTRONG www.livesAkredog.org Provides patients with information, education, counseling services, referrals to other resources, and the opportunity to speak with a professional mill worker. National Cancer [place] www.cancer.gov (329) 4-CANCER Federal government's principle agency for research, training, and information. Prepared by: Dee Dee Carter APRN.STEAM PAN SPONGER Delivered on: 09/29/2019 - This Survivorship Care Plan is a cancer treatment summary and follow-up plan is provided to you to keep with your health care records and to share with your primary care provider. - This summary is a brief record of major aspects of your cancer treatment. You can share your copywith any of your doctors or nurses. However, this is not a detailed or comprehensive record of yourcare.
--- OUTSIDE RECORDS SUMMARY | 2025-04-28 14:33 | XMS_ITS | Encounter Summary ---
Author Organization [facility] Address [address] [place] [address] Care Team Providers Care Motion Graphics Artist Name Role Phone KevinRoland Bernie JACSKON Primary Care Provider [phone] Kizzy Galloway RN Unavailable Kathryn Painter RN Unavailable Unavaila ble Source Comments In the event this information is protected by the Federal Confidentiality of Alcohol and Drug AbusePatient Records regulations: The Federal rules restrict any use of the information to criminally investigate or prosecute any alcohol or drug abuse patient.[facility] Encounter Details Date Type Department Care Team (Late st Contact Info) Description 11/16/2024 Patient Msg Gynecology Oncology [address] [place] [address] Elida Chacko APRN.VICE PRESIDENT OF ACADEMIC AFFAIRS [address] [place] [address] Appointment Cancellation Request Social History Tobacco Use [...] is lower risk 7 06/27/2023 Data from: https://www.neighborhoodatlas.medicine.[facility]/. Last address used for calculation [...] 06/07/2025 11:10 AM EDT Office Visit Orthopaedics [address] [place], [place] [phone] [place] [address] [place], [place] [phone] Right Hip Issues documented as of this encounter Visit Diagnoses Not on filedocumented in this encounter Care Teams Motion Graphics Artist Relationship Specialty Start Date End Date Roland Brown DO PCP - General 09/21/07 [place] [address] [place] [phone] Specialty Analytics Senior Manager Radiation Oncology 06/12/21 Kathryn Painter, RN Specialty Analytics Senior Manager Concert Singer Oncology 08/11/24 documented as of this encounter
--- OUTSIDE RECORDS SUMMARY | 2025-04-28 14:33 | XMS_ITS | Encounter Summary ---
Author Organization [facility] Address [address] [place] [address] Care Team Providers Care Make Up Man Name Role Phone KevinRoland Bernie JACKSON Primary Care Provider [phone] Kizzy Galloway RN Unavailable Kathryn Painter RN Unavailable Unavaila ble Source Comments In the event this information is protected by the Federal Confidentiality of Alcohol and Drug AbusePatient Records regulations: The Federal rules restrict any use of the information to criminally investigate or prosecute any alcohol or drug abuse patient.[facility] Encounter Details Date Type Department Care Team (Late st Contact Info) Description 10/01/2021 Patient Msg Gynecology [address] [phone] Sita Naidu MD [address] [id number] Results Social History Tobacco Use Types Packs/Day Years [...] N ot on file 10/24/2020 Data from: https://www.neighborhoodatlas.medicine.[facility]/. Last address used for calculation Not on file 10/24/2020 Comments No Sex and Gender Information Value Date Recorded Sex Assigned at Not on file Legal Sex Female 9:11 AM EST Gender Identity Not on file Sexual Orientation Not on file COVID-19 Exposure Response Date Recorded In the last month, have you been in contact with someone who was confirmed or suspected to have Coronavirus / COVID-19? No / Unsure 09/26/2021 9:55 AM EST documented as of this encounter Functional Status [...] 06/07/2025 11:10 AM EDT Office Visit Orthopaedics [address] [place] [address] [place] [address] [place] [address] Right Hip Issues documented as of this encounter Visit Diagnoses Not on filedocumented in this encounter Care Teams Make Up Man Relationship Specialty Start Date End Date Roland Brown DO PCP - General 09/21/07 Kizzy Galloway, NIKITA [address] [place] [address] Specialty Service Agent Radiation Oncology 06/12/21 Kathryn Painter, RN Specialty Service Agent Drain Layer Oncology 08/11/24 documented as of this encounter
--- OUTSIDE RECORDS SUMMARY | 2025-04-28 14:33 | XMS_ITS | Encounter Summary ---
Author Organization [facility] Address [address] [place] [address] Care Team Providers Care Aluminum Fabrication Supervisor Name Role Phone Roland Brown DO Primary Care Provider [phone] Encounter Details Date Type Department Care Team ([facility] st Contact Info) Description 01/06/2025 Outside Services [facility] Neurology [address] [facility] [address] [place] [address] Fabrizio Baires MD [address] [facility] [address] [place] [address] [facility] - Outpatient Social History Tobacco Use Types Packs/Day Years Used Date Smoking Tobacco: Never Smokeless Tobacco: Never Comments No Sex and Gender Information Value Date Recorded Sex Assigned at Not on file Legal Sex Female 3:32 PM EST Gender Identity Not on file Sexual Orientation Not on file documented as of this encounter Plan of Treatment Not on file documented as of this encounter Visit Diagnoses Not on filedocumented in this encounter Care Teams Aluminum Fabrication Supervisor Relationship Specialty Start Date End Date Roland Brown DO [address] [place] [address] PCP - General Internal Medicine 07/07/21 documented as of this encounter
--- OUTSIDE RECORDS SUMMARY | 2025-04-28 14:33 | XMS_ITS | Encounter Summary ---
Author Organization [facility] Address [address] [place] [address] Care Team Providers Care Spanish Language Lecturer Name Role Phone KevinRoland Bernie JACKSON Primary Care Provider [phone] Kizzy Galloway RN Unavailable Kathryn Painter RN Unavailable Unavaila ble Source Comments In the event this information is protected by the Federal Confidentiality of Alcohol and Drug AbusePatient Records regulations: The Federal rules restrict any use of the information to criminally investigate or prosecute any alcohol or drug abuse patient.[facility] Encounter Details Date Type Department Care Team (Late st Contact Info) Description 08/21/2024 Patient Msg Gynecology Oncology [address] [place] [address] Melody Mena APRN.VENDING ROUTE SERVICER [address] [place] [address] following up on bleeding Social History Tobacco Use Types Packs/Day Years [...] is lower risk 7 06/27/2023 Data from: https://www.neighborhoodatlas.medicine.[facility]/. Last address used for calculation [address] [...] 06/07/2025 11:10 AM EDT Office Visit Orthopaedics [address] [place], [place] [phone] [place] [address] [place], [place] [phone] Right Hip Issues documented as of this encounter Visit Diagnoses Not on filedocumented in this encounter Care Teams Spanish Language Lecturer Relationship Specialty Start Date End Date Roland Brown DO PCP - General 09/21/07 Kizzy Galloway, NIKITA [address] [place] [phone] Specialty Commercial Review Appraiser Radiation Oncology 06/12/21 Kathryn Painter, RN Specialty Commercial Review Appraiser Professor Computer Science Oncology 08/11/24 documented as of this encounter
--- OUTSIDE RECORDS SUMMARY | 2025-04-28 14:33 | XMS_ITS | Encounter Summary ---
Author Organization [facility] Address [facility] [place] [address] Care Team Providers Care Nut And Bolt Assembler Name Role Phone KevinRoland Bernie JACKSON Primary Care Provider [phone] Kizzy Galloway RN Unavailable Kathryn Painter RN Unavailable Unavaila ble Source Comments In the event this information is protected by the Federal Confidentiality of Alcohol and Drug AbusePatient Records regulations: The Federal rules restrict any use of the information to criminally investigate or prosecute any alcohol or drug abuse patient.[facility] Encounter Details Date Type Department Care Team (Late st Contact Info) Description 11/09/2024 Patient Msg Hematology/Oncology [address] [place] [address] Provider, [facility] APPOINTMENT Social History Tobacco Use Types Packs/Day Years [...] is lower risk 7 06/27/2023 Data from: https://www.neighborhoodatlas.[facility]/. Last address used for calculation [address] 06/27/2023 Comments No Sex and Gender Information [...] 06/07/2025 11:10 AM EDT Office Visit Orthopaedics [address] [place] [address] [place] [address] [place], [place] [phone] Right Hip Issues documented as of this encounter Visit Diagnoses Not on filedocumented in this encounter Care Teams Nut And Bolt Assembler Relationship Specialty Start Date End Date Roland Brown DO PCP - General 09/21/07 [place] [address] [place] [address] Specialty Carpenter Foreman Radiation Oncology 06/12/21 Kathryn Painter, RN Specialty Carpenter Foreman Diesel Technology Instructor Oncology 08/11/24 documented as of this encounter
--- OUTSIDE RECORDS SUMMARY | 2025-04-28 14:33 | XMS_ITS | Clinical Summary ---
Author Organization [facility] Address [address] [place] [address] Care Team Providers Care Cardiovascular Surgeon Name Role Phone Roland Brown DO Primary Care Provider [phone] Allergies No known active allergies Medications tiZANidine (ZANAFLEX) 4 MG tablet Take 1 tablet by mouth At bedtime as needed 06/13/20 21 Active meloxicam (MOBIC) 15 MG tablet Take 1 tablet by mouth daily 06/13/20 21 Active carvedilol (COREG) 25 MG tablet Take 1 tablet by mouth 2 times daily 06/07/20 21 Active ondansetron (ZOFRAN) 8 MG tablet Take 8 mg by mouth 06/21/20 21 Active ascorbic acid (VITAMIN C) 500 MG tablet Take 500 mg by mouth daily Active venlafaxine (EFFEXOR) 25 MG tablet Take 25 mg by mouth once Active dicyclomine (BENTYL) 10 MG capsule Take 10 mg by mouth 4 times daily (before meals and nightly) Active oxyCODONE-aceta minophen (PERCOCET) 5-325 MG per tablet Take 1 tablet by mouth every 4 hours as needed for Pain. Active hydrocortisone (ANUSOL-HC) [address] 1 suppository rectally 2 times daily 14 suppository 11/21/19 22 Active Encounters Date Type Department Care Team Description 01/27/2025 Orders Only [facility] Neurology [address] [place] [id number] ProviderRissa MD from Last 3 Months Social History Tobacco Use Types Packs/Day Years Used Date Smoking Tobacco: Never Smokeless Tobacco: Never Comments No Sex and Gender Information Value Date Recorded Sex Assigned at Not on file Legal Sex Female 3:32 PM EST Gender Identity Not on file Sexual Orientation Not on file Last Filed Vital Signs Vital Sign Reading Time Taken Comments Blood Pressure 161/91 11/21/2021 8:45 PM EST Pulse 90 11/21/2021 8:43 PM EST Temperature 36.9 C (98.5 F) 11/21/2021 8:43 PM EST Respiratory Rate 18 11/21/2021 8:43 PM EST Oxygen Saturation 100% 11/21/2021 8:45 PM EST Inhaled Oxygen Concentration - - Weight 65.8 kg (145 lb) 11/21/2021 8:43 PM EST Height 167.6 cm (5' 6 ) 11/21/2021 8:43 PM EST Body Mass Index 23.4 11/21/2021 8:43 PM EST Plan of Treatment Not on file Insurance [employer] Care Teams Cardiovascular Surgeon Relationship Specialty Start Date End Date Roland Brown DO [address] [place] [address] PCP - General Internal Medicine 07/07/21
--- OUTSIDE RECORDS SUMMARY | 2025-04-28 14:33 | XMS_ITS | Encounter Summary ---
Author Organization [facility] Address [address] [place] [address] Care Team Providers Care Take Away Man Name Role Phone Roland Brown DO Primary Care Provider [phone] Encounter Details Date Type Department Care Team (Late st Contact Info) Description 01/27/2025 [facility] [address] [address] Provider, Historical, Social History Tobacco Use Types Packs/Day Years Used Date Smoking Tobacco: Never Smokeless Tobacco: Never Comments No Sex and Gender Information Value Date Recorded Sex Assigned at Not on file Legal Sex Female 3:32 PM EST Gender Identity Not on file Sexual Orientation Not on file documented as of this encounter Plan of Treatment Not on file documented as of this encounter Procedures Procedure Name Priority Date/Time Associated Diagnosis Comments EMG Routine 01/06/2025 3:25 PM EST documented in this encounter Results * EMG (01/06/2025 3:25 PM EST) Historical Provider NEUROLOGY ORDERABLES Cindy olivera Result documented in this encounter Visit Diagnoses Not on filedocumented in this encounter Care Teams Take Away Man Relationship Specialty Start Date End Date Roland Brown DO [address] [place] [id number] PCP - General Internal Medicine 07/07/21 documented as of this encounter
--- OUTSIDE RECORDS SUMMARY | 2025-04-28 14:33 | XMS_ITS | Encounter Summary ---
Author Organization [facility] Address [facility] [place] [address] Care Team Providers Care Career Development Coordinator/Teacher Name Role Phone KevinRoland Bernie JACKSON Primary Care Provider [phone] Kizzy Galloway RN Unavailable Kathryn Painter RN Unavailable Unavaila ble Source Comments In the event this information is protected by the Federal Confidentiality of Alcohol and Drug AbusePatient Records regulations: The Federal rules restrict any use of the information to criminally investigate or prosecute any alcohol or drug abuse patient.[facility] Encounter Details Date Type Department Care Team (Late st Contact Info) Description 09/11/2021 Patient Msg Gynecology Oncology [address] [place] [address] Kip Reynolds MD [address] [place] [address] RE: Appointment Cancellation Request Social History Tobacco Use Types Packs/Day Years Used Date Smoking Tobacco: Never Smokeless Tobacco: Never Alcohol Use Standard Drinks/Week Comments Yes 0 (1 standard drink = 0.6 oz pur e alcohol) 3 drinks per month PHQ-2 Answer Date Recorded PHQ-2 score 0 05/24/2021 Area Deprivation Index Answer Date John rded National Score (1-100), lower number is lower ri sk Not on file 10/24/2020 State Score (1-10), lower number is lower risk N ot on file 10/24/2020 Data from: https://www.neighborhoodatlas.medicine.[facility]/. Last address used for calculation Not [...] have Coronavirus / COVID-19? No / Unsure 08/26/2021 12:19 PM EDT documented as of this encounter Functional Status [...] 06/07/2025 11:10 AM EDT Office Visit Orthopaedics [address] [place] [address] [place] [address] [place] [address] Right Hip Issues documented as of this encounter Visit Diagnoses Not on filedocumented in this encounter Care Teams Career Development Coordinator/Teacher Relationship Specialty Start Date End Date Roland Brown DO PCP - General 09/21/07 Kizzy Galloway, NIKITA [address] [place] [address] Specialty Film Waxer Radiation Oncology 06/12/21 Kathryn Painter, RN Specialty Film Waxer Engraver Tender Oncology 08/11/24 documented as of this encounter
--- OUTSIDE RECORDS SUMMARY | 2025-04-28 14:33 | XMS_ITS | Encounter Summary ---
Author Organization [facility] Address [facility] [place] [address] Care Team Providers Care Patient Case Coordinator Name Role Phone Roland Brown Primary Care Provider Kizzy Galloway RN Unavailable Kathryn Painter RN Unavailable Unavaila ble Source Comments In the event this information is protected by the Federal Confidentiality of Alcohol and Drug AbusePatient Records regulations: The Federal rules restrict any use of the information to criminally investigate or prosecute any alcohol or drug abuse patient.[facility] Encounter Details Date Type Department Care Team (Late st Contact Info) Description 02/21/2025 Patient Msg Orthopaedics [address] [place] [address] [place] [address] [place] [address] Right hip Social History Tobacco Use Types Packs/Day Years [...] is lower risk 7 06/27/2023 Data from: https://www.neighborhoodatlas.[facility]/. Last address used for calculation [address] [...] 06/07/2025 11:10 AM EDT Office Visit Orthopaedics [address] [place] [address] [place] [address] [place], [place] [id number] Right Hip Issues documented as of this encounter Visit Diagnoses Not on filedocumented in this encounter Care Teams Patient Case Coordinator Relationship Specialty Start Date End Date Roland Brown DO PCP - General 09/21/07 Kizzy Galloway, NIKITA [address] [place] [id number] Specialty Sales Development Director Radiation Oncology 06/12/21 Kathryn Painter, RN Specialty Sales Development Director Sow Manager Oncology 08/11/24 documented as of this encounter
--- OUTSIDE RECORDS SUMMARY | 2025-04-28 14:33 | XMS_ITS | Clinical Summary ---
Author Organization [facility] Address [address] [place] [address] Phone Care Team Providers Care Bun Machine Operator Name Role Phone Kevin Roland Madison JACKSON Primary Care Provider [phone] Allergies No known active allergies Medications carvedilol (Coreg) 25 mg tablet Take 1 tablet (25 mg) by mouth every 12 hours. 11/30/2024 Active venlafaxine XR (Effexor-XR) 150 mg 24 hr capsule Take 1 capsule (150 mg) by mouth once daily. take with food 12/06/2024 Active methazolAMIDE (Neptazane) 25 mg tablet Take 1 tablet (25 mg) by mouth 3 times a day. Active Social History Tobacco Use Types Packs/Day Years Used Date Smoking Tobacco: Never Smokeless Tobacco: Never Tobacco Cessation:Counseling Given: Not Answered Comments Unknown Sex and Gender Information Value Date Recorded Sex Assigned at Not on file Legal Sex Female 3:26 PM EST Gender Identity Not on file Sexual Orientation Not on file Plan of Treatment Health Maintenance Due Date Last Done Comments CT Colonography 1960 FIT-DNA (Cologuard) 1960 FIT 1960 HIV Screening 1960 Lipid Panel 1960 Sigmoidoscopy 1960 Yearly Adult Physical 1960 MMR Vaccines (1 of 1 - Standard series) 1961 Hepatitis C Screening 1978 Pneumococcal Vaccine (1 of 2 - PCV) 1979 Cervical Cancer Screening 1981 HPV/Cotest 1981 Pap Smear 1981 DTaP/Tdap/Td Vaccines (1 - Tdap) 1982 Zoster Vaccines (1 of 2) 2010 RSV High Risk: (Elderly (60+ ) or Population) (1 - Risk 60-74 years 1-dose series) 2020 Mammogram 10/18/2020 10/18/2019 COVID-19 Vaccine (3 - 2023-2 5 season) 2024 06/27/2021, 11/21/2020 Influenza Vaccine (Season Ended) 2025 Colonoscopy 09/26/2032 09/26/2022, 09/26/2022 Colorectal Cancer Screening 09/26/2032 HIB Vaccines Aged Out No longer eligi ble based on patient's age to complete this topic HPV Vaccines Aged Out No longer eligi ble based on patient's age to complete this topic Hepatitis A Vaccines Aged Out No long er eligible based on patient's age to complete this topic Hepatitis B Vaccines Aged Out No long er eligible based on patient's age to complete this topic IPV Vaccines Aged Out No longer eligi ble based on patient's age to complete this topic Meningococcal Vaccine Aged Out No sudeep samantha eligible based on patient's age to complete this topic Rotavirus Vaccines Aged Out No longer eligible based on patient's age to complete this topic Insurance Care Teams Bun Machine Operator Relationship Specialty Start Date End Date Roland Brown DO [address] [place] [place] [address] PCP - General Internal Medicine 12/10/24
[2025-04-28 15:24] LABS: Thyroid Stimulating Hormone 0.034 uIU/mL (0.358-3.740)
[2025-04-29 04:07] LABS: Triiodothyronine (T3) 132 ng/dL (71-180)
== END 2025-04-28 14:28 | disposition home or self-care (01) ==
PROVIDERS: PCP Internal Medicine; Visit Provider Internal Medicine
DX: E05.20 Thyrotoxicosis with toxic multinodular goiter without thyrotoxic crisis or storm (principal)
CPT/HCPCS: 36415; 84439; 84443; 84480

== ENCOUNTER 2025-06-09 06:56 | Outpatient (OUT) | payer BC, SELFPAY ==
--- NOTE | 2025-06-09 | US_ITS ---
The [address] [address] Patient Name: JOSEPHINE STOVER MRN: [id number] date: 1960 Sex: F Assigned Patient Location: CARD Current Patient Location: CARD Accession/Order Number: [id number] Exam Date: 06/09/2025 09:19 Report Date: 06/09/2025 09:23 At the request of: DOMONIQUE SERRANO DO Procedure: US thyroid Thyroid ultrasound Reason for exam: Nodule follow-up Comparison: Thyroid ultrasound 05/19/2024 Technique: Grayscale and color Doppler images of the thyroid gland were obtained. Findings: Right lobe measures 5.1 x 2.1 x 1.6 cm. Left lobe measures 4.7 x 1.3 x 1.5 cm. Isthmus measures 3 mm. Multiple nodules are seen throughout both thyroid lobes as well as the isthmus largest measuring 20 x 14 x 16 mm involving the inferior pole of the right lobe. This appears to be solid/cystic in nature though microcalcifications. This dominant nodule is unchanged when compared to the prior study. No definite new suspicious nodule when compared to the prior study. US/US thyroid Impression: Multinodular goiter with the dominant nodule involving the inferior pole of the right lobe measuring 20 x 14 x 16 mm. This nodule is stable compared to the 2023 study. No definite new suspicious nodule is seen. Impression dictated by: Adi Fink Jr., D.O. 06/09/2025 9:23 AM Dictation Location: [place] [address] Electronically authenticated by: [id number] Date: 06/09/2025 09:23
--- OUTSIDE RECORDS SUMMARY | 2025-06-09 06:59 | XMS_ITS | CCD ---
Author Organization [facility] Care Team Providers Care Deputy Clerk Of Court Name Role Phone Roland Serrano DO Primary [...] Unavailable Roland Serrano Unavailable Olya Gann Unavailable DR ROLAND SERRANO Primary Care Unavailable BALL, DR YOUSSEF Admitting Unavailable BALL, DR YOUSSEF Attending Unavailable BALL, DR YOUSSEF Consulting Unavailable SALOMON JACOME Attending Unavailable BALL, DR YOUSSEF Primary Care Unavailable AYAZ, SALOMON Consulting Unavailable SALOMON JACOME Admitting Unavailable MAGGIE, DR YOUSSEF Primary Care Unavailable AYAZ, SALOMON Attending Unavailable AYAZ, SALOMON Consulting Unavailable AYAZ, SALOMON Admitting Unavailable BALL, DR YOUSSEF Primary Care Unavailable MAGGIE, DR YOUSSEF Admitting Unavailable BALL, DR YOUSSEF Attending Unavailable BALL, DR YOUSSEF Consulting Unavailable ZIEBER, DR HENRY Lr Consulting Unavailable SALOMON JACOME Attending Unavailable BALL, DR YOUSSEF Primary Care Unavailable AYAZ, SALOMON Consulting Unavailable SALOMON JACOME Admitting Unavailable BALL, DR YOUSSEF Admitting Unavailable BALL, DR YOUSSEF Attending Unavailable BALL, DR YOUSSEF Consulting Unavailable BALL, DR YOUSSEF Primary Care Unavailable BALL, DR YOUSSEF Primary Care Unavailable BALL, DR YOUSSEF Admitting Unavailable BALL, DR YOUSSEF Attending Unavailable BALL, DR YOUSSEF Consulting Unavailable WEST, DR JACOB Parrish Consulting Unavailable Nilesh RN, Kizzy Unavailable Roland Serrano DO Primary Care Provider Inocencio SHELTON, Kathryn Philippe Unavailable Riley Serrano MD, Roland Gibbs Primary Care Provider JR. LAURA, MARY Chase Attending Unavaila ble STEPJR. JOHANA, MARY Chase Referring Unavaila ble STEPJR. JOHANA, MARY Chase Attending Unavaila ble STEPANIC JRStephan, MARY Chase Attending Unavaila ble STEPANIC, JRStephan, MARY Chase Referring Unavaila ble STEPANIC JRStephan, MARY Chase Attending Unavaila LEIGH Lua Attending Unavailable DYAN ROBB Attending Unavailable DYAN ROBB Referring Unavailable DYAN ROBB Attending Unavailable Roland Serrano DO Primary Care Provider GENEVA VELIZ Attending Unavailable ROLAND SERRANO Primary Care Unavailable OHEDWARD RICHARDSON Referring Unavailable ROLAND SERRANO Primary Care Unavailable OHEDWARD RICHARDSON Referring Unavailable ROLAND SERRANO Primary Care Unavailable OHLIEDWARD FELDER Attending Unavailable ROLAND SERRANO Primary Care Unavailable OHEDWARD RICHARDSON Referring Unavailable ROLAND SERRANO Primary Care Unavailable [place] MD Attending Provider [phone] Seb Garcia Primary Care Physician [place] Attending Unavailable [facility] Attending Unavailable [facility] Attending Unavailable [facility] Attending Unavailable [place] Admitting Unavailable Roland Serrano DO Primary Care Provider Roland Serrano DO Attending Provider [phone] [place] Referring Unavailable ROLAND SERRANO Primary Care Unavailable [place] Attending Unavailable ROLAND SERRANO Primary Care Unavailable HENRY RAMOS Attending Unavailable HENRY RAMOS Referring Unavailable ROLAND SERRANO Primary Care Unavailable MELODY MENA Attending Unavailable HENRY RAMOS Referring Unavailable ROLAND SERRANO Primary Care Unavailable [place] Attending Unavailable ROLAND SERRANO Primary Care Unavailable [place] Referring Unavailable ROLAND SERRANO Primary Care Unavailable EROSSYSOUTH Referring Unavailable ROLAND SERRANO Primary Care Unavailable Allergies Allergy Classification Reported Allergen(s) Allergy Type Date of Onset Reaction(s) Facility (6 sources) patient allergy list reviewed by nurse or physicia Propensity to adverse reactions 8 Comment:Done dakick Other (6 sources) Allergies Reconciled Propensity to adverse reactions Unknown dakick Other (1 source) No Known Medication Allergies; Translations: [No Known Medication Allergies] Propensity to adverse reactions (disorder) [facility] Repository Medications Current Medications Medication Drug Class(es) Dates Sig (Normalized) Sig (Original) [id number] 200 actuat albuterol 0.09 mg/actuat metered dose inhaler (20 sources) beta2-Adrenergic Agonist Start: 05-04-2024 take 1 puff(s) by inhalation every four hours as needed Albuterol Sulfate 90 mcg/actuation HFA aerosol inhaler Active 2 PUFF INHALATION Every 4 hours as needed May 04, 2024 12:00am Complies with drug therapy Start: 04-23-2023 take 2 puff(s) by in [...] SOB for 30 days Jan, Active Start: 03-06-2023 take 2 puff(s) by in halation every four hours as needed Albuterol Sulfate HFA 108 (90 Base) MCG/ACT 2 puffs as needed Inhalation every 4 hrs Jan, Active Comment on above: INHALE 2 PUFFS EVERY 4 HOURS NEEDED FOR COUGH OR SHORTNESS OF BREATH FOR 30 DAYS amoxicillin 875 mg oral tablet (13 sources) Penicillin-class Antibacterial Start: take 1 tablet by mouth twice daily Amoxicillin 875 mg tablet Active 875 MG PO Twice daily 14 November 26, 2024 1:00am Complies with drug therapy Start: 05-13-2023 take 4 capsules by m [...] Active 250 MG PO daily 04 21May 04, 2024 12:00am take 2 today and then 1 for the next 4 days Complies with drug therapy Start: 08-04-2023 Azithromycin 2 50 MG as [...] Active calcium carbonate 1500 mg oral tablet (11 sources) Start: 02-24-2025 take 1 tablet by mouth twice daily calcium (as carbonate) 600 mg oral tablet 600 mg = 1 tab(s), Oral, BID, Refills(s) 0 Start Date: 02/24/25 Status: Ordered Repeat number: 1 Start: 09-06-2020 take 1 tablet by corinne th twice daily Calcium Carbonate (Calcium 600) 600 mg calcium (1,500 mg) Tablet Active 600 MG PO Twice daily September 06, 2020 12:00am Complies with drug therapy Start: 06-29-2019 End: 09-06-2020 take 1 tablet by mouth twice daily Calcium Carbonate (Calcium 500) 500 mg calcium (1,250 mg) Tablet Discontinued 500 MG PO Twice daily June 29, 2019 12:00am September 06, 2020 8:55am CALCIUM CARBONATE-VIT D3-MINERALS 600 MG-400 UNIT TAB [...] every 12 hours. 11/30/2024 Active Start: 07-30-2024 End: 01-25-2025 take 1 tablet by mouth twice daily Carvedilol 25 mg tablet Active 0 .ROUTE .COMPLEX 60 January 25, 2025 12:30pm TAKE ONE TABLET BY MOUTH TWICE A DAY Complies with drug therapy Start: 02-01-2020 End: 07-30-2024 take 1 tablet by mouth twice daily carvedilol (COREG) 25 mg tablet Take 1 tablet by mouth twice daily. 06/07/2021 Active Start: 06-29-2019 End: 09-06-2020 take 1 tablet by mouth twice daily Carvedilol 12.5 mg tablet Discontinued 12.5 MG PO Twice daily June 29, 2019 12:00am September 06, 2020 8:55am Comment on above: Take 1 tablet by corinne th twice daily. celecoxib 200 mg oral capsule (6 sources) Nonsteroidal Anti-inflammatory Drug Start: 04-28-20 End: 11-01-20 celecoxib (CeleBREX) 200 MG capsule 04/28/2024 11/01/2024 Discontinued (Med list cleanup) cholecalciferol, vitD3,/vit K2 (VITAMIN D3-VITAMIN K2 ORAL) (7 sources) take 1 tablet by mouth once [...] times daily as needed for IBS June 29, 2019 12:00am September 06, 2020 8:56am take 1 capsule by mo uth four [...] Active ferrous sulfate 28 mg oral tablet (7 sources) take 28 mg by mouth once [...] INHALATION Twice daily May 04, 2024 12:00am Complies with drug therapy Start: 05-04-2024 Fluticasone Pr opion-Salmeterol 250-50 mcg/dose blister with device Active 1 INH INHALATION Twice daily May 04, 2024 12:00am Start: 05-04-2024 Fluticasone Pr opion-Salmeterol 250-50 mcg/dose blister with device Active 1 [...] PO Three times daily as needed May 04, 2024 12:00am Complies with drug therapy Start: 08-11-2020 End: 08-20-2021 ibuprofen (MOTRIN) 800 [...] 6 hours as needed for pain June 29, 2019 12:00am September 06, 2020 8:56am do not exceed 4 doses in a [...] Take by mouth once d aily. Lactobacillus acidophilus (1 source) Start: take 1 tablet by mouth once daily lactobacillus acidophilus 1 tab(s), Oral, Daily, Refill(s) 0 Start Date: 02/24/25 Status: Ordered Repeat number: 1 Lactobacillus Combination No.4 (Probiotic) 3 billion cell capsule (5 sources) Start: 4 take 3 capsules by mouth once daily Lactobacillus Combination No.4 (Probiotic) 3 billion cell capsule Active 3000 MMU CELLS PO Daily May 04, 2024 12:00am administer with a meal Complies with drug therapy Start: 05-04-2024 take 3 capsules by m [...] 2024 12:00am administer with a meal Magnesium (7 sources) take 240 mg by mouth twice daily MAGNESIUM ORAL Take 240 mg by mouth two times a day. Active magnesium carbonate (1 source) Start: 03-02-2025 magnesium carbonate Refills(s) 0 Start Date: 03/02/25 Status: Ordered Repeat number: 1 meloxicam 15 mg oral tablet (8 sources) Nonsteroidal Anti-inflammatory Drug Start: 02-21-2025 End: 05-22-2025 take 1 tablet by mouth once daily meloxicam (MOBIC) 15 mg tablet Take 1 tablet by mouth once daily. 30 tablet 2 02/21/2025 05/22/2025 Active Start: 08-20-2021 End: 05-04-2024 take 1 tablet by mouth once daily as needed for pain Meloxicam 15 mg tablet Discontinued 15 MG PO Daily as needed for Pain August 20, 2021 12:00am May 04, 2024 7:53am Start: 06-13-2021 take 1 tablet by corinne [...] MG PO Daily 60 September 16, 2024 3:28pm Complies with drug therapy Start: 08-30-2024 End: 09-16-2024 take 2 tablets by mouth once daily Methimazole 10 mg tablet Discontinued 0 .ROUTE .COMPLEX August 30, 2024 5:55pm September 16, 2024 3:28pm TAKE TWO TABLETS BY MOUTH DAILY FOR 30 DAYS Start: 07-02-2024 take 1 tablet by corinne th twice daily methIMAzole (TAPAZOLE) 10 mg tablet Take 10 mg by mouth two times a day. 07/02/2024 Active Start: 05-26-2024 End: 08-30-2024 take 2 tablets by mouth once daily Methimazole 10 mg tablet Discontinued 20 MG PO Daily 60 June 02, 2024 11:57am August 30, 2024 5:56pm Start: 05-26-2024 End: 06-02-2024 take 20 mg by mouth once daily Methimazole Active 20 M G PO Daily 60 June 02, 2024 11:57am Start: 05-26-2024 End: 05-26-2024 take 1 tablet by mouth once daily Methimazole 10 mg tablet Discontinued 10 MG PO Daily May 26, 2024 12:00am May 26, 2024 6:15pm Start: 09-06-2020 End: 08-20-2021 take 1 tablet by mouth twice daily Methimazole 5 mg tablet Discontinued 5 MG PO Twice daily September 06, 2020 12:00am August 20, 2021 11:25am take 1 tablet by corinne th every [...] dult - Orally Jul, Active Multivitamin preparation (2 sources) Start: 02-24-2025 take 1 tablet by mouth once daily multivitamin 1 tab(s), Oral, Daily, Refill(s) 0 Start Date: 02/24/25 Status: Ordered Repeat number: 1 Start: 06-29-2019 take 1 tablet by corinne th once daily Multivitamin Active 1 TAB PO Daily June 29, 2019 12:00am MULTIVITAMIN TAB (20 sources) Start: 03-31-2008 MULTIVITAMIN T AB Take by mouth. 0 03/31/2008 Active Start: 03-31-2008 MULTIVITAMIN T AB Take one(1) tablet daily. 0 03/31/2008 Active Comment on above: Take one(1) tablet d aily. Take by mouth. Multivitamin Tablet (4 sources) Start: 06-29-2019 take 1 tablet by mouth once daily Multivitamin Tablet Active 1 TAB PO Daily June 29, 2019 12:00am Complies with drug therapy Start: 06-29-2019 take 1 tablet by corinne th once daily Multivitamin Tablet Active 1 TAB PO Daily June 29, 2019 12:00am Start: 06-29-2019 take 1 tablet by corinne th once daily Multivitamin Tablet Active 1 TAB PO Daily June 28, 2019 11:00pm mupirocin 0.02 mg/mg topical ointment (6 sources) RNA Synthetase Inhibitor Antibacterial Start: 03-04-2023 Mupirocin 2 % 1 application Externally Twice a day for 10 days Feb, Active [id number] OIL-L.CASEI ORAL (20 sources) [id number] SH OIL-L.CASEI ORAL Take by mouth once daily. Active [id number] SH OIL-L.CASEI ORAL Take by mouth once [...] At bedtime as needed 0 06/13/2021 Active Vitamin B Complex (20 sources) Start: 09-06-2020 take 1 tablet by mouth once daily Vitamin B Complex Active 1 TAB PO Daily September 06, 2020 12:00am Start: 08-14-2018 Vitamin B Comp hayley - Orally Jul, Active Vitamin B Complex oral capsule (1 source) Start: 02-24-2025 take 1 capsule by mouth once daily Vitamin B Complex oral capsule 1 cap(s), Oral, Daily, Refill(s) 0 Start Date: 02/24/25 Status: Ordered Repeat number: 1 Vitamin B Complex Tablet Extended Release (4 sources) Start: 09-06-2020 take 1 tablet by mouth once daily Vitamin B Complex Tablet Extended Release Active 1 TAB PO Daily September 06, 2020 12:00am Complies with drug therapy Start: 09-06-2020 take 1 tablet by mouth once da sirena Vitamin B Complex Tablet Extended Release Active 1 TAB PO Daily September 06, 2020 12:00am Start: 09-06-2020 take 1 tablet by mouth once da sirena Vitamin B Complex Tablet Extended Release Active [...] / HYDROcodone bitartrate 5 mg oral tablet (13 sources) Opioid Agonist Start: 09-14-2020 End: 08-20-2021 take 1 tablet by mouth every four to six hours as needed for pain Hydrocodone-Acetami nophen ([place]) 5-325 mg tablet Discontinued 1 - 2 TAB PO EVERY 4-6 HOURS as needed for Pain 50 7 September 14, 2020 August 20, 2021 11:25am take 1-2 tablets by mouth every six hours as needed HYDROcodone-Acetaminophen 5-325 MG 1-2 t ablet as needed Oral every 6 hrs for 7 days Active acetaminophen 325 mg / oxyCODONE hydrochloride 5 mg oral tablet (10 sources) Opioid Agonist Start: 08-20-2021 End: 05-04-2024 take 1 tablet by mouth every six hours as needed for pain Oxycodone-Acetaminophen (Percocet) 5-325 mg tablet Discontinued 1 TAB PO Q6H as needed for left hip pain 28 7 November 02, 2021 May 04, 2024 7:53am ascorbic acid 500 mg oral tablet (20 sources) Vitamin C Start: 08-20-2021 End: 05-04-2024 take 1 tablet by mouth once daily Ascorbic Acid (Vitamin C) (Vitamin C) 500 mg Tablet Discontinued 500 MG PO Daily August 20, 2021 12:00am May 04, 2024 7:54am Comment on above: Take 500 mg by mouth once daily. doxycycline hyclate 100 mg oral tablet (10 sources) Tetracycline -class Drug Start: 09-14-2020 End: 08-20-2021 take 1 tablet by mouth twice daily as needed Doxycycline Hyclate 100 mg tablet Discontinued 100 MG PO Twice daily as needed for abdominal cramping August 20, 2021 11:26am August 20, 2021 11:27am folic acid 1 mg / polysaccharide iron complex 150 mg / vitamin b12 0.025 mg oral capsule (5 sources) Vitamin B12 Start: 08-20-2021 End: 05-04-2024 take 1 capsule by mouth once daily Iron Ps [id number] Acid (Poly-Iron 150 Forte) 150-25-1 mg-mcg-mg capsule Discontinued 1 CAP PO Daily August 20, 2021 12:00am May 04, 2024 7:53am Lactobacillus Combination No.4 (Probiotic) 3 billion cell Capsule (5 sources) Start: 06-29-2019 End: 09-06-2020 Lactobacillus Combination [...] End: 07-07-2021 meclizine (ANTIVERT) tablet 25 mg Webster 6-Scg-Fbi-Fish Oil (Fish Oil) 1,000 mg (120 mg-180 mg) Capsule (5 sources) Start: 10-15-2021 End: 11-01-2021 take 1 capsule by mouth twice daily Webster 1-Yus-Dtj-Fish Oil (Fish Oil) 1,000 mg (120 mg-180 mg) Capsule Discontinued 1 CAP PO Twice daily October 15, 2021 12:00am November 01, 2021 8:04pm Start: 10-15-2021 End: 11-01-2021 take 1 capsule by mouth twice daily Webster 4-Rff-Hhl-Fish Oil (Fish Oil) 1,000 mg (120 mg-180 mg) Capsule Discontinued 1 CAP PO Twice daily October 15, 2021 1:00am November 01, 2021 9:04pm Webster 1-Sus-Nlx-Fish Oil (Fish Oil) 60-90-500 mg Capsule (5 sources) Start: 09-06-2020 End: 08-20-2021 take 1 capsule by mouth once daily Webster 5-Xrs-Mjx-Fish Oil (Fish Oil) 60-90-500 mg Capsule Discontinued 1 CAP PO Daily September 05, 2020 11:00pm August 20, 2021 10:26am Start: 09-06-2020 End: 08-20-2021 take 1 capsule by mouth once daily Webster 4-Khe-Vcq-Fish Oil (Fish Oil) 60-90-500 mg Capsule Discontinued 1 CAP PO Daily September 06, 2020 12:00am August 20, 2021 11:26am ondansetron 8 mg oral tablet (6 sources) Serotonin-3 Receptor Antagonist Start: 08-20-2021 End: 10-15-2021 Ondansetron Hcl 8 mg tablet Discontinued 8 MG PO As Directed as needed for Nausea August 20, 2021 12:00am October 15, 2021 11:47am Start: 06-21-2021 ondansetron (Z OFRAN) 8 MG tablet Take 8 mg by mouth 0 06/21/2021 Active polyethylene glycol 3350 189138 mg / potassium chloride 2970 mg / sodium bicarbonate 6740 mg / sodium chloride 5860 mg / sodium sulfate 59880 mg powder for oral solution (1 source) [...] Capsule Discontinued 400 MG PO Daily September 06, 2020 12:00am May 04, 2024 7:53am Start: 09-06-2020 End: 05-04-2024 take 1 capsule [...] 1,000 mg by corinne th once daily. 24 hr venlafaxine 150 mg extended release oral capsule (20 sources) Serotonin and Norepinephrine Reuptake Inhibitor Start: 07-08-20 End: 01-26-20 take 1 capsule by mouth once daily at mealtime Venlafaxine 150 mg capsule,extended release 24hr Discontinued 0 .ROUTE .COMPLEX January 03, 2025 2:15pm January 25, 2025 12:31pm TAKE ONE CAPSULE BY MOUTH DAILY WITH FOOD Start: 01-07-2024 End: 05-04-2024 take 1 capsule by mouth once daily at mealtime Venlafaxine 150 mg capsule,extended release 24hr Discontinued 0 .ROUTE .COMPLEX January 07, 2024 9:29pm May 04, 2024 7:55am TAKE ONE CAPSULE BY MOUTH DAILY WITH FOOD Start: 09-06-2020 End: 01-07-2024 take 1 tablet by mouth once daily at bedtime Venlafaxine 150 mg Tablet Extended Release 24hr Discontinued 150 MG PO Daily at bedtime September 06, 2020 12:00am January 07, 2024 9:29pm Start: 06-17-2019 End: 07-08-2024 take 1 capsule by mouth once daily at bedtime venlafaxine ER (EFFEXOR XR) 150 mg 24 hr capsule Take 150 mg by mouth daily at bedtime. 06/23/2019 Active take 1 tablet by mouth once venl afaxine (EFFEXOR) 25 MG tablet Take 25 mg by mouth once 0 Active Comment on above: Take 150 mg by mouth daily at bedtime. vitamin b12 1 mg oral tablet (5 sources) Vitamin B12 Start: 06-29-2019 End: 09-06-2020 Cyanocobalamin (Vitamin B-12) (Vitamin B-12) 1,000 mcg Tablet Discontinued 1000 MG PO Daily June 29, 2019 12:00am September 06, 2020 8:56am Zygest (1 source) Start: 09-06-2020 End: 08-20-2021 take 1 capsule by mouth once daily Zygest Discontinued 1 CAP PO Daily September 06, 2020 12:00am August 20, 2021 11:27am Zygest 1 capsule (4 sources) Start: 09-06-2020 End: 08-20-2021 take 1 capsule by mouth once daily Zygest 1 capsule Discontinued 1 CAP PO Daily September 06, 2020 12:00am August 20, 2021 11:27am Start: 09-06-2020 End: 08-20-2021 take 1 capsule [...] on above: s/p SURENDRA/BSO, radiati on therapy Outside Source Comme nt: Comment on above: s/p SURENDRA/BSO, radiation therapy Cancer of uterus (1 source) History [...] not specified as acute or chronic Episodic Complication of device; implant or graft (4 sources) Mechanical loosening of internal right hip prosthetic joint, subsequent encounter; Translations: [Other specified aftercare] Onset: 06-07-2025 06-07-2025 Episodic Conditions associated with dizziness or vertigo [...] [Anemia, unspecified] Episodic Deficiency and other anemia (3 sources) Iron deficiency anemia; Translations: [Iron deficiency anemia, unspecified] 01-05-2025 Episodic Deficiency and other anemia (1 source) Iron deficiency anemia, unspecified; Translations: [Iron deficiency anemia, unspecified] 01-05-2025 Episodic Esophageal disorders (3 sources) Gastro-esophageal reflux disease with esophagitis; Translations: [Gastro-esophageal reflux disease with esophagitis, without bleeding] 06-17-2019 Chronic Esophageal disorders (2 sources) Esophageal disorders; [...] ankle] Chronic Other and ill-defined heart disease (13 sources) Left cardiac ventricular dilatation; Translations: [Cardiomegaly] 02-24-2025 Chronic Other and unspecified benign neoplasm (20 [...] 10-07-2024 Episodic Other and unspecified benign neoplasm (4 sources) Bilateral lipoma of upper limbs; Translations: [Benign lipomatous neoplasm of skin and subcutaneous tissue of right arm] 06-29-2024 Episodic Other and unspecified benign neoplasm (1 source) Lipoma of skin and subcutaneous tissue of limb; Translations: [Benign lipomatous neoplasm of skin and subcutaneous tissue of left arm] Onset: 03-29-2025 Episodic Other and unspecified benign neoplasm (1 source) Benign lipomatous neoplasm of skin and/or subcutaneous tissue of left upper limb 02-01-2020 Episodic Other and unspecified benign neoplasm (1 source) Pituitary adenoma 06-17-2019 Episodic Other connective tissue disease (19 sources) History of total hip arthroplasty; Translations: [Presence of right artificial hip joint] Chronic Other connective tissue disease (3 sources) Presence of right artificial hip joint; Translations: [Presence of right artificial hip joint] Onset: 01-17-2025 Chronic Other connective tissue disease (10 sources) History of repair of hip joint; [...] Episodic Other diseases of veins and lymphatics (19 sources) Peripheral venous insufficiency; Translations: [Venous insufficiency (chronic) (peripheral)] 02-24-2025 Episodic Other diseases of veins and lymphatics [...] syndrome with constipation] Chronic Other gastrointestinal disorders (5 sources) Irritable bowel syndrome; Translations: [Mixed irritable bowel syndrome] Onset: 02-05-2017 06-17-2019 Chronic Other liver diseases (1 source) Abnormal levels of other serum enzymes Episodic Other lower respiratory disease (6 sources) Interstitial lung disease; Translations: [Interstitial pulmonary disease, unspecified] 06-27-2023 Chronic Other lower respiratory disease (5 sources) [...] skin] 12-02-2024 Episodic Other non-traumatic joint disorders (20 sources) Hip pain; Translations: [Pain in right hip] 10-29-2023 Episodic Comment on above: Problem List clean-u p per request of Phys. EHR Cmte Other non-traumatic joint disorders (1 source) Chronic pain following right total hip arthroplasty; Translations: [Pain in right hip] 01-17-2025 Episodic Other non-traumatic joint disorders (4 sources) Pain in right hip; Translations: [Pain in right hip] Onset: 12-10-2024 Episodic Other nutritional; endocrine; and metabolic disorders (1 source) Overweight 02-24-2025 Episodic Other nutritional; endocrine; and metabolic disorders (1 source) Overweight in adulthood with body mass index of 25 or more but less than 30 03-02-2025 Episodic Other screening for suspected conditions (not mental disorders or infectious disease) (18 sources) Encounter for screening mammogram for malignant [...] caused by tuberculosis or sexually transmitted disease) (18 sources) Dilated cardiomyopathy; Translations: [Dilated cardiomyopathy] Chronic Pulmonary heart disease (15 sources) Secondary pulmonary hypertension; Translations: [Other secondary pulmonary hypertension] 06-27-2023 Chronic Residual codes; unclassified (4 sources) Preventive procedure; Translations: [Encounter for other specified prophylactic measures] Episodic Residual codes; unclassified (1 source) Past history of procedure 02-01-2020 Episodic Spondylosis; intervertebral disc disorders; other back problems (20 sources) Lumbar radiculopathy; Translations: [Radiculopathy, lumbar region] Onset: 12-01-2024 11-01-2024 Episodic Thyroid disorders (20 sources) Autoimmune [...] 09-12-2018 Unclassified (1 source) NO SHOW 08-21-2024 Unclassified (1 source) Low back pain, unspecified; [...] Onset: 12-05-2017 Episodic Deficiency and other anemia (13 sources) Anemia; Translations: [Anemia, unspecified] Onset: 09-02-2023 [...] 06-11-2019 Episodic Other and unspecified benign neoplasm (4 sources) Benign neoplasm of pituitary gland; 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] Onset: 06-11-2019 02-24-2025 Episodic Other connective tissue disease (1 source) [...] pain, unspecified] Onset: 01-13-2025 Unclassified (1 source) Mechanical loosening of internal right hip prosthetic joint, subsequent encounter 06-07-2025 Viral infection (4 sources) Viral disease; Translations: [Unspecified viral infection, in conditions classified elsewhere and of unspecified site] Onset: 12-14-2018 Episodic Viral infection (1 source) COVID-19 Results Test Name Value Interpretation Reference Range Facility [facility] 06-07-2025 [facility] Office Visit ([facility] ) ISABEL WADDELL ([id number]) 1960 F Date Time Provider Department 06/07/25 11:10 AM [facility] During your visit today, we recorded the following information about you: [place] MD 06/07/2025 1:59 PM Signed Established Patient Ortho Hip Consult Note ASSESSMENT AND PLAN: Impression: Right SHAAN aseptic loosening of stem Isabel Waddell is a 65-year-old female presenting with acute worsening of chronic pain in the groin and lower extremity. Isabel reports a sudden increase in pain since yesterday, describing it as intense and radiating from the groin down to the foot. The pain is accompanied by numbness and tingling sensations in the lower extremity, but is not sharp. She has a history of chronic pain, but notes that this recent exacerbation is more severe than usual. She had an MRI of the lumbar spine in November, which showed findings at L5-S1. She recalls experiencing similar symptoms earlier this year, which had subsided until the recent onset. She has been managing her pain with Aleve as needed, but is now requesting stronger medication due to the increased severity. She has a prescription for meloxicam at home, but has not been taking it recently. Isabel has a history of a hip implant and has been using crutches for protected weight bearing since February. She reports that her condition remained stable during this period, but has worsened since discontinuing the use of crutches. She denies smoking and has no history of diabetes. PLAN: 1. Mechanical loosening of internal right hip prosthetic joint, subsequent encounter (T84.030D) Pain in right hip (M25.551) Radiographic evidence of femoral component loosening observed. Patient reports persistent and worsening groin and hip pain, exacerbated by recent activities. Previous protected weight bearing did not alleviate symptoms. No history of smoking or diabetes. Original post-op x-ray images from October 2021 are not available for comparison. - Discussed risks and benefits of revision surgery; patient agrees and desires to proceed. - Scheduled revision surgery - Educated patient on post-operative precautions, including avoiding high-impact activities to prevent further loosening or dislocation. - Recommended resuming use of crutches if pain becomes unbearable. - Initiated Meloxicam once daily; advised discontinuation of Aleve and other NSAIDs. - Advised use of Tylenol as needed, contingent upon normal liver enzyme levels. - Will attempt to obtain original post-op x-ray images from [facility] for further evaluation. 2. Radiculopathy, lumbar region (M54.16) Symptoms of numbness and tingling extending to the foot, consistent with lumbar radiculopathy. Previous MRI in November showed potential nerve impingement at L5-S1. - Continue monitoring symptoms; no immediate intervention required. R SHAAN revision femoral versus both components Posterior approach (index surgery) Sung extraction instrument set (FanBread[employer] reps) Depuy corail stem -- insertion handle? Pencil tip chucho / Carbide tip chucho Cristi moapa Nalia res mod [address] - hip protocol Isabel Waddell has radiograph and physical exam evidence of degenerative joint disease and wishes to pursue surgery. This patient appears to have sufficient symptoms to warrant surgical intervention and is an appropriate candidate for right Primary Total Hip Arthroplasty as evidenced by six months of unsuccessful non-operative treatment as outlined in the HPI below and progressive symptoms. Progressive symptoms include: Pain impacting sleep or causing fatigue Pain worsened by weight bearing Pain effecting living situation Pain limiting ability to stay fit and healthy Unable to ambulate 2 blocks without significant pain and dysfunction. We had a lengthy discussion regarding the risk and benefit of surgery, the alternatives, limitations and personnel involved. These included but were not limited to infection, persistent pain, instability, nerve injury, blood clots, and medical complications. We also discussed the pre-operative course, surgery itself and rehabilitation. Galina-operative blood management and transfusion issues were discussed, and options clearly outlined. The patient has consented to the use of the banked allogenic blood if medically necessary. The patient has elected to schedule surgery at this time or intends to call the office with a surgical date. Shared decision making occurred while obtaining informed consent. The patient will be scheduled for a pre-operative education class at which time they will have their nasal swab completed and will be given CHG cloths along with the verbal and written instructions for their use. Patient has been instructed and has been scheduled or will call to schedule attendence in one of the total joint perioperative (more content not included)... Normal [facility] XR HIP 3V PELV+ AP/LAT RTon 06-07-2025 XR HIP 3V PELV+ AP/LAT RT * * *Final Report* * * DATE OF EXAM: Jun 07 2025 1:10PM VHX 5352 - XR HIP 3V PELV+ AP/LAT RT / PROCEDURE REASON: Pain in right hip * * * * Physician Interpretation * * * * EXAMINATION: XR HIP 3V PELV+ AP/LAT RT HISTORY: right hip replacement loosening Pain in right hip . TECHNIQUE: XR HIP 3V PELV+ AP/LAT RT Laterality: RIGHT Number of different views (projections): 3 M: XB_1 COMPARISON: RESULT: Right hip arthroplasty in place appears intact and without loosening. Maintained sacroiliac joints and pubic symphysis. Moderate left hip degenerative changes. No acute fracture or dislocation. There are no bony erosions. IMPRESSION: Intact right hip arthroplasty. Shuttler Car: DANA Transcribe Date/Time: Jun 07 2025 2:45P Dictated by : SOUTH KRUGER MD This examination was interpreted and the report reviewed and electronically signed by: SOUTH KRUGER MD on Jun 07 2025 2:45PM EST [id number] [facility] XR Pelvis and Hip - right AP and Lateral frogon 06-07-2025 IMPRESSION: Intact right hip arthroplasty. Shuttler Car: DANA Transcribe Date/Time: Jun 07 2025 2:45P Dictated by : SOUTH KRUGER MD This examination was interpreted and the report reviewed and electronically signed by: SOUTH KRUGER MD on Jun 07 2025 2:45PM EST [facility] * * *Final Report* * * DATE OF EXAM: Jun 07 2025 1:10PM VHX 5352 - XR HIP 3V PELV+ AP/LAT RT / PROCEDURE REASON: Pain in right hip * * * * Physician Interpretation * * * * EXAMINATION: XR HIP 3V PELV+ AP/LAT RT HISTORY: right hip replacement loosening Pain in right hip . TECHNIQUE: XR HIP 3V PELV+ AP/LAT RT Laterality: RIGHT Number of different views (projections): 3 M: XB_1 COMPARISON: RESULT: Right hip arthroplasty in place appears intact and without loosening. Maintained sacroiliac joints and pubic symphysis. Moderate left hip degenerative changes. No acute fracture or dislocation. There are no bony erosions. [facility] Provider, Yari [facility] - 06/07/2025 * * *Final Report* * * DATE OF EXAM: Jun 07 2025 1:10PM VHX 5352 - XR HIP 3V PELV+ AP/LAT RT / PROCEDURE REASON: Pain in right hip * * * * Physician Interpretation * * * * EXAMINATION: XR HIP 3V PELV+ AP/LAT RT HISTORY: right hip replacement loosening Pain in right hip . TECHNIQUE: XR HIP 3V PELV+ AP/LAT RT Laterality: RIGHT Number of different views (projections): 3 M: XB_1 COMPARISON: RESULT: Right hip arthroplasty in place appears intact and without loosening. Maintained sacroiliac joints and pubic symphysis. Moderate left hip degenerative changes. No acute fracture or dislocation. There are no bony erosions. IMPRESSION IMPRESSION: Intact right hip arthroplasty. Shuttler Car: DANA Transcribe Date/Time: Jun 07 2025 2:45P Dictated by : SOUTH KRUGER MD This examination was interpreted and the report reviewed and electronically signed by: SOUTH KRUGER MD on Jun 07 2025 2:45PM [facility] Radiology Study observation (narrative) [facility] XR Pelvis and Hip - right AP and Lateral frogOrdered By: Ccf Provider on 06-07-2025 [facility] Laboratory - Chemistry and C hemistry - challengeon 04-28-2025 Free T4 [Mass/Vol] 1.10 ng/dL 0.76-1.46 [facility] TSH Qn 0.034 m[IU]/L Low 0.358-3.74 0 [facility] No Panel Informationon 04-28 Total Triiodothyronine 132 ng/dL 71-180 [facility] Comment on above: Performed at: - [address] [id number] Director: Alex Morse PhD, Phone: [phone] Ambulatory Visit Summaryon 0 03-29-2025 Ambulatory Visit Summary Ambulatory Visit Summary ISABEL WADDELL :1960 Visit Date:03/29/2025 Ambulatory Visit Instructions Your Diagnosis Benign lipomatous neoplasm of skin and subcutaneous tissue of left arm Your Care Team Attending Physician - DESTINY SIEGEL, [place] Primary Care Physician - Jose SIEGEL, Se[place] This Is Your Medications List Contact prescribing physician if questions or concerns calcium carbonate (calcium (as carbonate) 600 mg oral tablet) carvedilol (carvedilol 25 mg Tab) ibuprofen (ibuprofen 800 mg Tab) lactobacillus acidophilus magnesium carbonate methimazole (methimazole 10 mg Tab) multivitamin multivitamin (Vitamin B Complex oral capsule) venlafaxine (venlafaxine 150 mg Cap-ER) Procedures Performed Excision of lipoma (03/16/2025), Abdominal hysterectomy (08/12/2019), Cystoscope (11/17/2007), Colonoscopy (11/17/1999), Esophagogastroduodenoscopy (11/17/1992), Arthroplasty of right hip, Arthroscopy of knee, Arthroscopy of shoulder, Caesarean section, Carpal tunnel release, section, section, Cholecystectomy, Excision of cyst of breast, Pituitary tumor, Thumb surgery. Medications What How Much When Instructions Unchanged calcium carbonate (calcium (as carbonate) 600 mg oral tablet) 1 Tablets By Mouth 2 times a day Contact prescribing physician if questions or concerns Unchanged carvedilol (carvedilol 25 mg Tab) 1 Tablets By Mouth 2 times a day Contact prescribing physician if questions or concerns Unchanged ibuprofen (ibuprofen 800 mg Tab) 1 Tablets By Mouth 3 times a day as needed for as needed for pain Contact prescribing physician if questions or concerns Unchanged lactobacillus acidophilus 1 Tablets By Mouth Every day Contact prescribing physician if questions or concerns Unchanged magnesium carbonate Contact prescribing physician if questions or concerns Unchanged methimazole (methimazole 10 mg Tab) 1 Tablets By Mouth Every day Contact prescribing physician if questions or concerns Unchanged multivitamin 1 Tablets By Mouth Every day Contact prescribing physician if questions or concerns Unchanged multivitamin (Vitamin B Complex oral capsule) 1 Capsules By Mouth Every day Contact prescribing physician if questions or concerns Unchanged venlafaxine (venlafaxine 150 mg Cap-ER) 1 Capsules By Mouth Every day Contact prescribing physician if questions or concerns Allergies No Known Allergies No Known Medication Allergies Problems Ongoing - Any problem that you are currently receiving treatment for. Anemia Asthma Benign lipomatous neoplasm of skin and subcutaneous tissue of left arm Benign neoplasm of pituitary gland BMI 27.0-27.9,adult Dilated cardiomyopathy Endometrial carcinoma Generalized anxiety disorder Graves disease HTN (hypertension) Interstitial lung disease Irritable bowel syndrome Left cardiac ventricular dilatation Lumbar radiculopathy Overweight Peripheral venous insufficiency Historical - Any problem that you are no longer receiving treatment for. GERD - Gastro-esophageal reflux disease H/O esophagogastroduodenoscopy IBS - Irritable bowel syndrome Pituitary adenoma Patient Survey You may receive a survey via text or e-mail asking about your office visit. Please share your experience with us by completing your survey. We appreciate your feedback and thank you for choosing us for your care. Normal [facility] General Surgery Office/Clini c Noteon 03-29-2025 General Surgery Office/Clinic Note General Surgery Office/Clinic Note Chief Complaint post operative follow up HPI Staff 13 day post operative follow up post excisional biopsy left arm lipomas x 3. Reports occasional soreness, no use of pain medication. Denies bleeding or drainage. History of Present Illness almost 2 weeks s/p excisional biopsy lipomas x 3 on left arm; doing well, mild soreness, no drainage; pathology consistent with benign lipomas. Review of Systems PHQ Score Initial Depression Screen Score: 0 SCORE ROS - Provider Constitutional: no fever, no sweats, no weight loss. Eyes: no glasses, no blurred vision, no visual loss. ENMT: no dentures, no hoarseness, no swallowing difficulties, no hearing loss, no ear infection(s), no nose bleeds. Cardiovascular: normal blood pressure, no chest pain, regular heartbeat, no heart murmur. Respiratory: no shortness of breath, no cough, no asthma, no wheezing. Gastrointestinal: no nausea, no vomiting, no diarrhea, no constipation, no blood in stool, no change in bowel habits, no abdominal pain, no hepatitis. Genitourinary: no kidney stones, no urine infection, no dysuria. Musculoskeletal: no pain, no weakness. Skin: no changing moles, no rash, no skin lumps. Neurologic: no seizures, no epilepsy, no headache. Psychiatric: no emotional or psychiatric problem. Heme/Lymph: no bleeding problems, no anemia, no blood clots, no transfusions. Allergy/Immunologic: no swollen lymph nodes/glands, no IV drug abuse. Other: Additional ROS info: Except as noted in the above Review of Systems and in the History of Present Illness, all other systems have been reviewed and are negative or noncontributory. Physical Exam skin: incisions without erythema or drainage, no ecchymoses. Assessment/Plan 1. Benign lipomatous neoplasm of skin and subcutaneous tissue of left arm (D17.22: Benign lipomatous neoplasm of skin and subcutaneous tissue of left arm) doing well; keep incisions clean and dry; wash daily with soap and water, no ointments; call with problems/questions. Follow-up No qualifying data available Problem List/Past Medical History Ongoing Anemia Asthma Benign lipomatous neoplasm of skin and subcutaneous tissue of left arm Benign neoplasm of pituitary gland BMI 27.0-27.9,adult Dilated cardiomyopathy Endometrial carcinoma Generalized anxiety disorder Graves disease HTN (hypertension) Interstitial lung disease Irritable bowel syndrome Left cardiac ventricular dilatation Lumbar radiculopathy Overweight Peripheral venous insufficiency Historical GERD - Gastro-esophageal reflux disease H/O esophagogastroduodenoscopy IBS - Irritable bowel syndrome Pituitary adenoma Procedure/Surgical History Excision of lipoma (03/16/2025), Abdominal hysterectomy (08/12/2019), Cystoscope (11/17/2007), Colonoscopy (11/17/1999), Esophagogastroduodenoscopy (11/17/1992), Arthroplasty of right hip, Arthroscopy of knee, Arthroscopy of shoulder, Caesarean section, Carpal tunnel release, section, section, Cholecystectomy, Excision of cyst of breast, Pituitary tumor, Thumb surgery. Medications calcium (as carbonate) 600 mg oral tablet, 600 mg= 1 tab(s), Oral, BID carvedilol 25 mg Tab, 25 mg= 1 tab(s), Oral, BID ibuprofen 800 mg Tab, 800 mg= 1 tab(s), Oral, TID, PRN lactobacillus acidophilus, 1 tab(s), Oral, Daily magnesium carbonate methimazole 10 mg Tab, 10 mg= 1 tab(s), Oral, Daily multivitamin, 1 tab(s), Oral, Daily venlafaxine 150 mg Cap-ER, 150 mg= 1 cap(s), Oral, Daily Vitamin B Complex oral capsule, 1 cap(s), Oral, Daily Allergies No Known Allergies No Known Medication Allergies Social History Alcohol - Denies Alcohol Use, 06/17/2019 Never., 03/01/2025 Substance Abuse - Denies Substance Abuse, 06/17/2019 Never., 03/28/2025 Tobacco Never (less than 100 in lifetime) Tobacco Use:. Never Smokeless Tobacco Use:., 03/29/2025 Family History Dementia: Mother. Thyroid goiter: Mother. Immunizations Vaccine Date Status Comments SARS-CoV-2 (COVID-19) mRNA-1273 vaccine 06/27/2021 Recorded SARS-CoV-2 (COVID-19) mRNA-1273 vaccine 11/21/2020 Recorded influenza virus vaccine, live, trivalent - Not Given Patient Refuses Normal [facility] Comment on above: Result Comment: Elec tronically Signed By: DESTINY SIEGEL, [place]\Date and Time Signed: 03/29/25 13:24 EDT Viet 03-16-2025 L -------- -------- Specimen: [id number] Received: 03/16/25135 Status: GARRETT Alejo Num: [id number] Spec Type: Surgical Subm Dr: South Dixon MD FACS Tissues: A Lipoma (LEFT ARM LIPOMAS) Procedures: HE, Gross/Micro L3 -------- Age/ Patient Sex Location Account Attending Physician -------- Isabel Waddell 64/F LABELL [id number] South Dixon MD FACS -------- SPEC NUM: [id number] RECD: 03/16/25 STATUS: GARRETT ALEJO NUM: [id number] FRANCISCA: 03/16/25-[address]: South Dixon MD FACS ENTERED: 03/16/[address]: Ino Salinas SPEC TYPE: Surgical DEPT: [facility] ENTERED BY: [id number] RECV BY: [id number] ORDERED: HE, Gross/Micro L3 ORDERED: HE, Gross/Micro L3 Pathological Diagnosis Soft tissue, left arm, excisions: - Sections of all 3 fragments are all uniformly smooth and fatty, and are consistent with benign lipomas in all 3 fragments without atypia Clinical Information Multiple lipomas left arm Gross Description Part A is received in formalin labeled with the patients name, date of , and left arm lipomas are 3 ovoid portions of encapsulated adipose tissue, 1.3 x 1.1 x 0.4 cm, 1.7 x 1.3 x 1 cm, and 3 x 2.3 x 1.4 cm. The capsular surfaces are robert-pink, membranous, smooth and glistening. The largest specimen is inked black, the midsized specimen is inked blue, and the smallest specimen is inked green. Sectioning reveals yellow-robert, glistening and uniform cut surfaces. Electric Engine Mechanic sections are submitted in a single cassette. (1, , [id number]) JG -------- Specimen: [id number] Received: 03/16/25 Status: GARRETT Alejo Num: [id number] Spec Type: Surgical Subm Dr: South Dixon MD FACS Tissues: A Lipoma (LEFT ARM LIPOMAS) Procedures: Ok REYES/Nataliia Walton -------- Patient: Isabel Waddell [id number] (Continued) -------- Specimen: [id number] Received: 03/16/25 (Continued) Signed (signature on file) Yahir Monzon MD 03/17/25 1316 -------- Specimen: [id number] Received: 03/16/25 Status: GARRETT Alejo Num: [id number] Spec Type: Surgical Subm Dr: South Dixon MD FACS Tissues: A Lipoma (LEFT ARM LIPOMAS) Procedures: HE, Gross/Micro L3 -------- Patient: Isabel Waddell [id number] (Continued) -------- Specimen: [id number] Received: 03/16/25 (Continued) Microscopic Description Microscopic examination is performed CPT Codes 26990 -------- -------- Specimen: [id number] Received: 03/16/256011 Status: GARRETT Alejo Num: [id number] Spec Type: Surgical Subm Dr: South Dixon MD FACS Tissues: A Lipoma (LEFT ARM LIPOMAS) Procedures: AMY, Ok/Nataliia L3 -------- Patient: Isabel Waddell [id number] (Continued) -------- Signed (signature on file) Yahir Monzon MD 03/17/25 1316 Normal [facility] Basophils Auto (Bld) [#/Vol] on 02-28-2025 Basophils (Bld) [#/Vol] Automated basophil count 0.0-0.1 [facility] Basophils (Bld) [#/Vol] 0.0 10 3/uL 0.0-0.1 [facility] Basophils/100 WBC Auto (Bld) on 02-28-2025 Basophils/100 WBC (Bld) Automated basophil % 0.2-2.0 [facility] Basophils/100 WBC (Bld) 0.7 % 0.2-2.0 [facility] Cholesterol in LDL Calc [Mas s/Vol]on 02-28-2025 Cholesterol in LDL [Mass/Vol] Cholesterol in LDL [Mass/volume] in Serum or Plasma by calculation [facility] Comment on above: <100 mg/dl [id number] 0-129 mg/dl NEAR OR ABOVE [id number] mg/dl BORDERLINE [id number] mg/dl HIGH>190 mg/dl VERY HIGH Cholesterol in LDL [Mass/Vol] 153.0 mg/dL [facility] Comment on above: <100 mg/dl [id number] 0-129 mg/dl NEAR OR ABOVE [id number] mg/dl BORDERLINE [id number] mg/dl HIGH>190 mg/dl VERY HIGH Cholesterol in VLDL Calc [Ma ss/Vol]on 02-28-2025 Cholesterol in VLDL [Mass/Vol] Cholesterol in VLDL [Mass/volume] in Serum or Plasma by calculation [facility] Cholesterol in VLDL [Mass/Vol] 13.8 mg/dL [facility] Eosinophils/100 WBC Auto (Bl d)on 02-28-2025 Eosinophils/100 WBC (Bld) Automated eosinophil % 0.9-7.0 [facility] Eosinophils/100 WBC (Bld) 2.7 % 0.9-7.0 [facility] Erythrocyte distribution wid th Auto (RBC) [Ratio]on 02-28-2025 Erythrocyte distribution width (RBC) [Ratio] Erythrocyte distribution width [Ratio] by Automated count 11.0-15.0 [facility] Erythrocyte distribution width (RBC) [Ratio] 13.1 % 11.0-15.0 [facility] Estimated glomerular filtrat ion rate (GFR) non- Americanon 02-28-2025 GFR/1.73 sq M.predicted among non-blacks MDRD (S/P/Bld) [Vol rate/Area] Estimated glomerular filtration rate (GFR) non- >=60 mL/min/1.7 3m 2 [facility] GFR/1.73 sq M.predicted among non-blacks MDRD (S/P/Bld) [Vol rate/Area] mL/min/{1.73_m2} >=60 mL/min/1.7 3m 2 [facility] Globulin Calc (S) [Mass/Vol] on 02-28-2025 Globulin (S) [Mass/Vol] Serum globulin measurement by calculation (mass/volume) [facility] Globulin (S) [Mass/Vol] 3.3 g/dL [facility] Hematocrit Auto (Bld) [Volum e fraction]on 02-28-2025 Hematocrit (Bld) [Volume fraction] Hematocrit [Volume Fraction] of Blood by Automated count 36.0-48.0 [facility] Hematocrit (Bld) [Volume fraction] 44.1 % 36.0-48.0 [facility] Hemoglobin [Mass/volume] in Bloodon 02-28-2025 Hemoglobin (Bld) [Mass/Vol] Hemoglobin [Mass/volume] in Blood 12.0-16.0 [facility] Hemoglobin (Bld) [Mass/Vol] 15.0 g/dL 12.0-16.0 [facility] Laboratory - Chemistry and C hemistry - challengeon 02-28-2025 Albumin [Mass/Vol] 3.6 g/dL 3.4-5.0 [facility] ALP [Catalytic activity/Vol] 104 U/L 46-116 [facility] ALT [Catalytic activity/Vol] 39 U/L 14-59 [facility] AST [Catalytic activity/Vol] 28 U/L 15-37 [facility] Bilirubin [Mass/Vol] 0.5 mg/dL 0.2-1.[address] [facility] Calcium [Mass/Vol] 9.1 mg/dL 8.5-10.1 [facility] Chloride [Moles/Vol] 105 mmol/L 98-[address] [facility] Cholesterol [Mass/Vol] 252 mg/dL High <=200 [facility] Cholesterol in HDL [Mass/Vol] 86 mg/dL High 40-60 [facility] Comment on above: > or =60 mg/dl - LOW CARDIOVASCULAR RISK<40 mg/dl - HIGH CARDIOVASCULAR RISK CO2 [Moles/Vol] 30.7 mmol/L 21.0-32.0 [facility] Creatinine [Mass/Vol] 0.84 mg/dL 0.55-1.02 [facility] Ferritin [Mass/Vol] 90.0 ng/mL 8.0-252.0 [facility] Free T4 [Mass/Vol] 0.69 ng/dL Low 0.76-1.46 [facility] GFR/1.73 sq M.predicted MDRD (S/P/Bld) [Vol rate/Area] mL/min/{1.73_m2} >=60 mL/min/1.7 3m 2 [facility] Glucose [Mass/Vol] 107 mg/dL High 74-106 [facility] Potassium [Moles/Vol] 4.5 mmol/L 3.5-5.1 [facility] Protein [Mass/Vol] 6.9 g/dL 6.4-8.2 [facility] Sodium [Moles/Vol] 142 mmol/L 136-145 [facility] Triglyceride [Mass/Vol] 69 mg/dL <=150 [facility] TSH Qn 0.861 m[IU]/L 0.358-3.74 0 [facility] Urea nitrogen [Mass/Vol] 14.0 mg/dL 7.0-18.0 [facility] Urea nitrogen/Creatinine [Mass ratio] 16.7 mg/mg [facility] Laboratory - Hematology and Cell countson 02-28-2025 Immature granulocytes/100 WBC (Bld) 0.2 % 0.0-0.5 [facility] Leukocytes [#/volume] correc katherine for nucleated erythrocytes in Blood by Automated counon 02-28-2025 WBC corrected for nucl RBC Auto (Bld) [#/Vol] Leukocytes [#/volume] corrected for nucleated erythrocytes in Blood by Automated coun .0-11.0 [facility] WBC corrected for nucl RBC Auto (Bld) [#/Vol] 4.1 10 3/uL 4.0-11.0 [facility] Lymphocytes Auto (Bld) [#/Vo l]on 02-28-2025 Lymphocytes (Bld) [#/Vol] Lymphocytes [#/volume] in Blood by Automated count 1.2-3.8 [facility] Lymphocytes (Bld) [#/Vol] 1.4 10 3/uL 1.2-3.8 [facility] Lymphocytes/100 WBC Auto (Bl d)on 02-28-2025 Lymphocytes/100 WBC (Bld) Lymphocytes/100 leukocytes in Blood by Automated count 20.5-60.0 [facility] Lymphocytes/100 WBC (Bld) 33.7 % 20.5-60.0 [facility] MCH Auto (RBC) [Entitic mass ]on 02-28-2025 MCH (RBC) [Entitic mass] MCH [Entitic mass] by Automated count 26.7-34.0 [facility] MCH (RBC) [Entitic mass] 32.3 pg 26.7-34.0 [facility] MCHC Auto (RBC) [Mass/Vol]on 02-28-2025 MCHC (RBC) [Mass/Vol] MCHC [Mass/volume] by Automated count 29.9-35.2 [facility] MCHC (RBC) [Mass/Vol] 34.0 g/dL 29.9-35.2 [facility] MCV Auto (RBC) [Entitic vol] on 02-28-2025 MCV (RBC) [Entitic vol] MCV [Entitic volume] by Automated count 81.0-99.0 [facility] MCV (RBC) [Entitic vol] 95.0 fL 81.0-99.0 [facility] Monocytes Auto (Bld) [#/Vol] on 02-28-2025 Monocytes (Bld) [#/Vol] Automated blood monocyte count 0.3-0.8 [facility] Monocytes (Bld) [#/Vol] 0.4 10 3/uL 0.3-0.8 [facility] Monocytes/100 WBC Auto (Bld) on 02-28-2025 Monocytes/100 WBC (Bld) Automated monocyte % 1.7-12.0 [facility] Monocytes/100 WBC (Bld) 9.8 % 1.7-12.0 [facility] Neutrophils Auto (Bld) [#/Vo l]on 02-28-2025 Neutrophils (Bld) [#/Vol] Neutrophils [#/volume] in Blood by Automated count 1.4-6.5 [facility] Neutrophils (Bld) [#/Vol] 2.2 10 3/uL 1.4-6.5 [facility] Neutrophils/100 WBC Auto (Bl d)on 02-28-2025 Neutrophils/100 WBC (Bld) Automated neutrophil % 43.0-75.0 [facility] Neutrophils/100 WBC (Bld) 52.9 % 43.0-75.0 [facility] No Panel Informationon 02-28 Eosinophils # (Auto) 0.1 10 3/uL 0.0-0.7 [facility] Immature Granulocyte # (Auto) 0.01 10 3/uL 0.00-0.03 [facility] Total Triiodothyronine 88 ng/dL 71-180 [facility] Comment on above: Performed at: [address] [id number] Director: Alex Morse PhD, Phone: [phone] Platelet mean volume Auto (B ld) [Entitic vol]on 02-28-2025 Platelet mean volume (Bld) [Entitic vol] Platelet mean volume [Entitic volume] in Blood by Automated count Low 9.5-13.5 [facility] Platelet mean volume (Bld) [Entitic vol] 9.2 fL Low 9.5-13.5 [facility] Platelets Auto (Bld) [#/Vol] on 02-28-2025 Platelets (Bld) [#/Vol] Platelets [#/volume] in Blood by Automated count 150-450 [facility] Platelets (Bld) [#/Vol] 202 10 3/uL 150-450 [facility] RBC Auto (Bld) [#/Vol]on RBC (Bld) [#/Vol] Erythrocytes [#/volu me] in Blood by Automated count 4.20-5.40 [facility] RBC (Bld) [#/Vol] 4.64 10 6/uL 4.20-5.40 [facility] Serum or plasma albumin/glob ulin mass ratioon 02-28-2025 Albumin/Globulin [Mass ratio] Serum or plasma albumin/globulin mass ratio [facility] Albumin/Globulin [Mass ratio] 1.1 {ratio} [facility] Serum or plasma anion gap de terminationon 02-28-2025 Anion gap [Moles/Vol] Serum or plasma an ion gap determination [facility] Anion gap [Moles/Vol] 10.8 mmol/L [facility] Serum or plasma total choles terol/high density lipoprotein (HDL) cholesterol mass hari 04-14-2025 Cholesterol.total/Cho lesterol in HDL [Mass ratio] Serum or plasma total cholesterol/high density lipoprotein (HDL) cholesterol mass rat [facility] Comment on above: 3.3 - 4.4 LOW RISK4. 4 - 7.1 AVERAGE RISK7.1 - 11.0 MODERATE RISK>11.0 HIGH RISK Cholesterol.total/Cho lesterol in HDL [Mass ratio] 2.9 {ratio} [facility] Comment on above: 3.3 - 4.4 LOW RISK4. 4 - 7.1 AVERAGE RISK7.1 - 11.0 MODERATE RISK>11.0 HIGH RISK C-REACTIVE PROTEINon 025 CRP [Mass/Vol] mg/dL NINF - 0.9 mg/dL [facility] CBC panel Auto (Bld)on 02-21 Erythrocyte distribution width (RBC) [Ratio] 13.2 % 11.5 - 15.0 % [facility] Hematocrit (Bld) [Volume fraction] 45.8 % 36.0 - 46.0 % [facility] Hemoglobin (Bld) [Mass/Vol] 15.1 g/dL 11.5 - 15.5 g/dL [facility] Interpretation and review of laboratory results Normal [facility] MCH (RBC) [Entitic mass] 31.4 pg 26.0 - 34.0 pg [facility] MCHC (RBC) [Mass/Vol] 33 g/dL 30.5 - 36.0 g/dL [facility] MCV (RBC) [Entitic vol] 95.2 fL 80.0 - 100.0 fL [facility] Nucleated RBC (Bld) [#/Vol] NINF [facility] Platelet mean volume (Bld) [Entitic vol] 9.6 fL 9.0 - 12.7 fL [facility] Platelets (Bld) [#/Vol] 241 10*3/uL [facility] RBC (Bld) [#/Vol] 4.81 10*6/uL 3.90 - 5.20 m/uL [facility] WBC (Bld) [#/Vol] 4.95 10*3/uL [facility] Erythrocyte distribution width (RBC) [Ratio] 13.2 % Normal 11.5-15.0 [facility] Comment on above: Order Comment: Speci men Type: BLOOD SPECIMEN Ordering Facility: [facility] Address: [address] [place] [address] Performed By: #### 4 537-7, 59670-0 #### [facility] CLIA [id number] [address] [place] [address] [place] Hematocrit (Bld) [Volume fraction] 45.8 % Normal 36.0-46.0 [facility] Comment on above: Order Comment: Speci men Type: BLOOD SPECIMEN Ordering Facility: [facility] Address: [address] [place] [address] Performed By: #### 4 537-7, 50463-4 #### [facility] CLIA [id number] [address] [place] [address] [place] Hemoglobin (Bld) [Mass/Vol] 15.1 g/dL Normal 11.5-15.5 [facility] Comment on above: Order Comment: Speci men Type: BLOOD SPECIMEN Ordering Facility: [facility] Address: [address] [place] [address] Performed By: #### 4 537-7, 11334-5 #### [facility] CLIA [id number] [address] [place] [address] [place] MCH (RBC) [Entitic mass] 31.4 pg Normal 26.0-34.0 [facility] Comment on above: Order Comment: Speci men Type: BLOOD SPECIMEN Ordering Facility: [facility] Address: [address] [place] [address] Performed By: #### 4 537-7, 88293-9 #### [facility] CLIA [id number] [address] [place] [address] [place] MCHC (RBC) [Mass/Vol] 33.0 g/dL Normal 30.5-36.0 [facility] Comment on above: Order Comment: Speci men Type: BLOOD SPECIMEN Ordering Facility: [facility] Address: [address] [place] [address] Performed By: #### 4 537-7, 53936-1 #### [facility] CLIA [id number] [address] [place] [address] [place] MCV (RBC) [Entitic vol] 95.2 fL Normal 80.0-100.0 [facility] Comment on above: Order Comment: Speci men Type: BLOOD SPECIMEN Ordering Facility: [facility] Address: [address] [place] [address] Performed By: #### 4 537-7, 80533-2 #### [facility] CLIA [id number] [address] [place] [address] [place] Nucleated RBC (Bld) [#/Vol] 10*3/uL Normal <0.01 [facility] Comment on above: Order Comment: Speci men Type: BLOOD SPECIMEN Ordering Facility: [facility] Address: [address] [place] [address] Performed By: #### 4 537-7, 45351-2 #### [facility] CLIA [id number] [address] [place] [address] [place] Platelet mean volume (Bld) [Entitic vol] 9.6 fL Normal 9.0-12.7 [facility] Comment on above: Order Comment: Speci men Type: BLOOD SPECIMEN Ordering Facility: [facility] Address: [address] [place] [address] Performed By: #### 4 537-7, 92384-3 #### [facility] CLIA [id number] [address] [place] [address] [place] Platelets (Bld) [#/Vol] 241 10*3/uL Normal 150-400 [facility] Comment on above: Order Comment: Speci men Type: BLOOD SPECIMEN Ordering Facility: [facility] Address: [address] [place] [address] Performed By: #### 4 537-7, 79967-6 #### [facility] CLIA [id number] [address] [place] [address] [place] RBC (Bld) [#/Vol] 4.81 10*6/uL Normal 3.90-5.20 [facility] Comment on above: Order Comment: Speci men Type: BLOOD SPECIMEN Ordering Facility: [facility] Address: [address] [place] [address] Performed By: #### 4 537-7, 48640-4 #### [facility] CLIA [id number] [address] [place] [address] [place] WBC (Bld) [#/Vol] 4.95 10*3/uL Normal 3.70-11.00 [facility] Comment on above: Order Comment: Speci men Type: BLOOD SPECIMEN Ordering Facility: [facility] Address: [address] [place] [address] Performed By: #### 4 537-7, 69442-9 #### [facility] CLIA [id number] [address] [place] [address] [place] CNOVon 02-21-2025 CNOV Office Visit (LOORRM ) ISABEL WADDELL ([id number]) 1960 F Date Time Provider Department 02/21/25 [...] October [address] Comer at [facility] orthopedics in [facility]. She has greater than 1 year history [...] surgeries or injections. She recently went to [place] a few weeks ago and had significant [...] moderate depression, (more content not included)... Normal [facility] CRP SerPl-mCncon 02-21-2025 CRP [Mass/Vol] mg/L Normal <0.9 [facility] Comment on above: Order Comment: Speci men Type: BLOOD SPECIMEN Ordering Facility: [facility] Address: [address] [place] [address] Performed By: #### 1 988-5 #### [facility] CLIA [id number] [address] [place] [address] [place] CRP [Mass/Vol]on 02-21-2025 Interpretation and review of laboratory results Normal [facility] ESR Westergren method (Bld) [Velocity]on 02-21-2025 ESR (Bld) [Velocity] 5 mm/h [facility] Interpretation and review of laboratory results Normal [facility] ESR (Bld) [Velocity] 5 mm/h Normal 0-20 [facility] Comment on above: Order Comment: Speci men Type: BLOOD SPECIMEN Ordering Facility: [facility] Address: [address] [place] [address] Performed By: #### 4 537-7, 46665-6 #### [facility] CLIA [id number] [address] [place] [address] [place] Erythrocyte distribution wid th Auto (RBC) [Ratio]on 02-21-2025 Erythrocyte distribution width (RBC) [Ratio] Erythrocyte distribution width [Ratio] by Automated count 11.5-15.0 [facility] Erythrocyte distribution width (RBC) [Ratio] 13.2 % 11.5-15.0 [facility] Hematocrit Auto (Bld) [Volum e fraction]on 02-21-2025 Hematocrit (Bld) [Volume fraction] Hematocrit [Volume Fraction] of Blood by Automated count 36.0-46.0 [facility] Hematocrit (Bld) [Volume fraction] 45.8 % 36.0-46.0 [facility] Hemoglobin [Mass/volume] in Bloodon 02-21-2025 Hemoglobin (Bld) [Mass/Vol] Hemoglobin [Mass/volume] in Blood 11.5-15.5 [facility] Hemoglobin (Bld) [Mass/Vol] 15.1 g/dL 11.5-15. [facility] Laboratory - Hematology and Cell countson 04-07-2025 ESR (Bld) [Velocity] 5 mm/h 0-[address] [facility] Leukocytes [#/volume] correc katherine for nucleated erythrocytes in Blood by Automated counon 02-21-2025 WBC corrected for nucl RBC Auto (Bld) [#/Vol] Leukocytes [#/volume] corrected for nucleated erythrocytes in Blood by Automated coun .70-11. [facility] WBC corrected for nucl RBC Auto (Bld) [#/Vol] 4.95 k/uL 3.70-11.00 [facility] MCH Auto (RBC) [Entitic mass ]on 02-21-2025 MCH (RBC) [Entitic mass] MCH [Entitic mass] by Automated count 26.0-34.0 [facility] MCH (RBC) [Entitic mass] 31.4 pg 26.0-34.0 [facility] MCHC Auto (RBC) [Mass/Vol]on 02-21-2025 MCHC (RBC) [Mass/Vol] MCHC [Mass/volume] by Automated count 30.5-36.0 [facility] MCHC (RBC) [Mass/Vol] 33.0 g/dL 30.5-36.0 [facility] MCV Auto (RBC) [Entitic vol] on 02-21-2025 MCV (RBC) [Entitic vol] MCV [Entitic volume] by Automated count 80.0-100.0 [facility] MCV (RBC) [Entitic vol] 95.2 fL 80.0-100.0 [facility] No Panel Informationon 02-21 C-Reactive Protein, Quantitative <0.3 mg/dL <0.9 [facility] Nucleated RBC Auto (Bld) [#/ Vol]on 02-21-2025 Nucleated RBC (Bld) [#/Vol] Nucleated erythrocytes [#/volume] in Blood by Automated count <0.01 [facility] Nucleated RBC (Bld) [#/Vol] 10*3/uL <0.01 [facility] Platelet mean volume Auto (B ld) [Entitic vol]on 02-21-2025 Platelet mean volume (Bld) [Entitic vol] Platelet mean volume [Entitic volume] in Blood by Automated count 9.0-12.7 [facility] Platelet mean volume (Bld) [Entitic vol] 9.6 fL 9.0-12.7 [facility] Platelets Auto (Bld) [#/Vol] on 02-21-2025 Platelets (Bld) [#/Vol] Platelets [#/volume] in Blood by Automated count 150-400 [facility] Platelets (Bld) [#/Vol] 241 10*3/uL 150-400 [facility] RBC Auto (Bld) [#/Vol]on RBC (Bld) [#/Vol] Erythrocytes [#/volu me] in Blood by Automated count 3.90-5.20 [facility] RBC (Bld) [#/Vol] 4.81 10*6/uL 3.90-5.20 [facility] XR HIP 3V PELV+ AP/LAT RTon 02-21-2025 [...] and pubic symphysis. No other significant abnormality. 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 Shuttler Car: DANA Transcribe Date/Time: Feb 21 2025 11:29A [...] and pubic symphysis. No other significant abnormality. DIVISION OF RADIOLOGY Provider, [facility] - 02/21/2025 * * *Final Report* * [...] with findings concerning for femoral component loosening. Shuttler Car: DANA Transcribe Date/Time: Feb 21 2025 11:29A Dictated by : EMELY GREEN MD This examination was interpreted and the report reviewed and electronically signed by: EMELY GREEN MD on Feb 21 2025 11:31AM EST [facility] Radiology Study observation (narrative) [facility] XR Pelvis and Hip - right AP and Lateral frogOrdered By: Ccf Provider on 02-21-2025 [facility] XR FOREARM LEFT 2 VIEWSon XR FOREARM LEFT 2 VIEWS Interpreted By: Edward Barros III, STUDY: XR FOREARM LEFT 2 VIEWS; ; 01/17/2025 1:54 pm INDICATION: Signs/Symptoms:pain. ,M79.632 Pain in left forearm COMPARISON: None. ACCESSION NUMBER(S): [id number] ORDERING CLINICIAN: EDWARD BARROS FINDINGS: Three views left forearm: No acute osseous abnormality no fracture or dislocation appreciated. 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 IMPRESSION: No acute osseous abnormality MACRO: None Signed by: Edward Barros III 01/17/2025 2:00 PM Dictation workstation: [id number] [facility] XR Radius and Ulna - left 2 Viewson 01-17-2025 No acute osseous abn ormality MACRO: None Signed by: Edward Barros III 01/17/2025 2:00 PM Dictation workstation: [id number]AL Interpreted By: Edward Germain III, STUDY: XR FOREARM LEFT 2 VIEWS; ; 01/17/2025 1:54 pm INDICATION: Signs/Symptoms:pain. ,M79.632 Pain in left forearm COMPARISON: None. ACCESSION NUMBER(S): [id number] ORDERING CLINICIAN: EDWARD BARROS FINDINGS: Three views [...] in left forearm COMPARISON: None. ACCESSION NUMBER(S): [id number] ORDERING CLINICIAN: EDWARD BARROS FINDINGS: Three views left forearm: No acute osseous abnormality no fracture or dislocation appreciated. 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 IMPRESSION: No acute osseous abnormality MACRO: None Signed by: Edward Barros III 01/17/2025 2:00 PM Dictation workstation: [id number] [facility] Work Phone: [facility] Work Phone: Radiology Study observation (narrative) [facility] Work Phone: L Inj/Asp: R hip jointon Geneva Veliz MD 01/13/2025 11:43 AM L Inj/Asp: R hip joint on 01/13/2025 11:23 AM Indications: pain Details: 22 G needle, lateral approach Medications: 40 mg triamcinolone acetonide 40 mg/mL; 9 mL lidocaine 10 mg/mL (1 %) [facility] Work Phone: [facility] Work Phone: EMG & nerve conductionon Impression: NEUROLOGY Fabrizio Baires MD - 01/06/2025 IMPRESSION: Impression: [facility] Work Phone: EMG & nerve conductionOrdere d By: Fabrizio Baires on 01-06-2025 [facility] Work Phone: Laboratory - Chemistry and C hemistry - challengeon 01-04-2025 Free T4 [Mass/Vol] 0.82 ng/dL 0.76-1.46 [facility] TSH Qn 0.081 m[IU]/L Low 0.358-3.74 0 [facility] XR HIP RIGHT WITH PELVIS WHE N PERFORMED 2 OR 3 VIEWSon 12-10-2024 XR HIP RIGHT WITH PELVIS WHEN PERFORMED 2 OR 3 VIEWS Interpreted By: Kobe Garcia, STUDY: XR HIP RIGHT WITH PELVIS WHEN PERFORMED 2 OR 3 VIEWS INDICATION: Signs/Symptoms:PAIN. COMPARISON: None ACCESSION NUMBER(S): [id number] ORDERING CLINICIAN: EDWARD BARROS FINDINGS: Right total hip arthroplasty without fracture, malalignment, or periprosthetic lucency. IMPRESSION: Satisfactory appearance right total hip arthroplasty. Signed by: Kobe Garcia 12/11/2024 4:40 PM Dictation workstation: [id number] [facility] Laboratory - Chemistry and C hemistry - challengeon 11-01-2024 Free T4 [Mass/Vol] 0.68 ng/dL Low 0.76-1.46 [facility] TSH Qn 0.781 m[IU]/L 0.358-3.74 0 [facility] XR Hip - right 3 Viewson [...] dislocation. Impression: Unremarkable right total hip arthroplasty. [facility] Radiology Study observation (narrative) [facility] Laboratory - Chemistry and C hemistry - challengeon 09-15-2024 Free T4 [Mass/Vol] 0.45 ng/dL Low 0.76-1.46 [facility] TSH Qn 0.131 m[IU]/L Low 0.358-3.74 0 [facility] No Panel Informationon 09-15 Total Triiodothyronine 78 ng/dL 71-180 [facility] Comment on above: Performed at: [address] [id number] Director: Alex Morse PhD, Phone: [phone] Vaishnavi 08-18-2024 [place] Telephone (JIMHAO) CKISABEL ([id number]) 1960 F Date Time Provider Department 08/18/24 [...] mg by mouth daily at bedtime. - [id number] OIL-L.CASEI ORAL Take by mouth once daily. [...] Status:Closed by ERNESTO CHACKO on 08/18/24 Normal [facility] HIGH RISK HUMAN PAPILLOMA RADHA (HPV), PCR FOR DETECTION AND GENOTYPINGOrdered By: Geneva Sadler on 08-16-2024 HPV 16 Ag Ql (Unsp spec) Indeterminate Abnormal Not detected [facility] HPV 18 Ag Ql (Unsp spec) Indeterminate Abnormal Not detected [facility] HPV 31+33+35+39+45+51+52+ 56+58+59+66+68 DNA ANGELA+probe Ql (Cvx) Indeterminate Abnormal Not detected [facility] Comment on above: High Risk HPV Other Type includes HPV types 31, 33, 35, 39, 45, 51, 52, 56, 58, 59, 66 and 68. Interpretation and review of laboratory results Abnormal [facility] Indeterminate despit e repeat testing, likely due to suboptimal collection or amplification inhibition. Recommend submitting a new specimen for testing if clinically indicated. This test was developed and its performance characteristics determined by [facility]'s Geneva Shetty [facility] Pathology and Laboratory Medicine [place] [facility] It has not been cleared or approved by the FDA. -[facility] is regulated under CLIA as qualified to perform high-complexity testing. This test is used for clinical purposes. It should not be regarded as investigational or for research. [facility] No Panel InformationOrdered By: Brice Cervantes on 08-16-2024 [facility] Work Phone: PAP TESTOrdered By: Brice mckeon on 08-16-2024 Case Report Gynecologic Cytology Report Case: [id number] Authorizing Provider: Ernesto Chacko APRN.[employer]IR[employer] INSPECTION RECORD CLERK Collected: 08/05/2024 01:17 PM Ordering Location: Gynecology Oncology Received: 08/05/2024 07:53 PM First Screen: Silvia Lr CT, ASCP Pathologist: Brice Cervantes MD Specimen: Pap Test, ThinPrep, Vagina [facility] Work Phone: Clinical History Abnormal Bleeding (D escribe) Hysterectomy, Total [facility] Work Phone: Gross Description p7buxBUiDOSmaXBIBEZ9 QZNrCX8h pLkpvSk7lGreUAPnmjL8uTQgUGdw x9fcNYQ5x5veicFLXzxtYMHyZF1w WUgdCJDrKZ0lCwMqNBOsRuVlMJFp xZAsizYlUqAoVICtaMRusKQ6OUIx YD6gcewlSItqWGlgZANuwqU8HGHq pWIrP1RcJSPsLI6mekshUEH3FXUJ JcecOs0ukYHnyOowFrOxBqKsYEZe VENrKHHnk1qdqeMNppvmnUf1qR2O BBHrT3TuNH9Dm5xxVTZqhMWvAHG2 PXcbk6gzWUiwYSN8TCRjWKJcVLJq MU8FPbEiPWmaBLT2QEr0LlV7ICw0 DSBNMEAcPXM3UUB5PIZyHCj8RMel XFxuaCBcXHQgMSBcXGZsIFxcbmN9 j8gnMTYhcBLoCES6MOjfg5xlATyx JKP7DUVoFzIaPJGmXB9BTbWkSLfu STX8HQq8JlC6BOb5NSWRJnGlJyAn DTw3ENa8ETZeLLz8KNe0XPuKZvGf Tqo8RVHcPXgeOKC8LARpKLXyMUHj IeOcKAVsIPZoAUjhvKFbTR0ijIga XVTtDD5CIVKfPJoxJFOgHxVsIT7r GuTtyZ2uPFh4maMnNEQggnSAPkce HWUcDV9GEZQeEXbjYDg1jbAxIBWq FgCjWARuA42ra7PXd1DcOL3XUBh7 cnBhciANClxmczIwIEdsYWNpYWwg QWNldGljIEFjaWQgYWRkZWQuXHBh vtGPDnrtYWTbXKAiuUAAx6FeGERI DgdweLdyDePjtLBsShC0PMSdjAVy CTJ9QQ3qmZtgFGSiL4XbM9MrvlR8 YOSkjsAWBbhbAUZzJW7JJQCfIxHv DQp9 [facility] Work Phone: HPV Reflex Yes HPV [facility] Work Phone: Interpretation Unable to perform interpretation due to unsatisfactory specimen. [facility] Work Phone: Pap Disclaimer a2djqPHvWRVvw1gzGRRi bGFuZzEw MzNcZnRuYmpcdWMxIHtccnRmMVxz v8HkT0TxLrJzZIivxkMsOVOyKrsi tapyDAIeGVL5qcTbOJEeXPwgFBMc VZhqKj2ssLWszPndFzZnXDEcj1qn fcGGzeasoOe1d4blBZAtYqN9hSAw NZhmL6tfnyVumIHtJDTrFXh7wN04 AJSukH2xtHUrMUucudJpTfK5PFbt XXGtWnH5MGExnARhDQHaB0bbUUKu WPzqDYBvNUwvfIHuEJO5eNmzs6L1 qUAmiFSuaIddCbInTsYlIyVDr0Ws SMj1mLoiO2VqHTXcNfR0hCZeHIVx TRllPSFdBDHeacP5jX07PQrfdfH1 kIIuh8Qnz63om201aD8mtXExFKE2 GIXkCYIcdNSaZXCcZMU2AWIvyJGf O8byUFTqRQ5fgkvkRBeqATpzAODj yTN2SKCjvPGvK3DbPDQmVQlhXYZc lpo3ZpRfWa3jnUTchTseRJwzg9ki y7vrrWPuLop7LOCoRrRuBatzKCbt w1Uyq4siXLZkkc1oPSJ6fKArvEnz m3Q1tQUqRJFgbLYtdaOeJLOyYaY3 BTfrKZ3fsm68HZMnEMH7oe1vhUOw zJuvlrRrmIEgOQriY2InMNZux836 VNRfC7UwPYYde0W5mxFiHiHgFMFz bIZ4mpZ9IHReRWy7sMQpxwC7kfGd vPEcM6ifkA6rAEJdDG1hdnbnm2mg TIkdCErmLGBajYQ7ykJ4VYBvlPLk W0DxzI8wWLDbZWwoMLWkwuu2AzOv Kz1hhACjdLnmRNqyZxwhOGmpLVYj bmNvbnRccGduZGVjXHBsYWluXHBs ACedMNPkMKFlBtHikHhxxLibkG2h EpIlMwGkOibrPC5tOAEcR9irxJMk QUTlDIXiC4lvPjIhaK4hgXvpHOtj pqD6UEMtMOATVUJoP67jHUTrtNWj ZISxS7NqBU9iblgydJZnbTErr2Bu H6ZfceohYWvxD2YlK5JwAhBrEzRu t7SbjfRmWKAqojIfdcDyxTr6qrZv R2H5peX0nSTwXRBafRKxD8YuML6m hbtldMVphUEjDTZywXynx1z3xZ3h IHRoZSBuZWVkIGZvciByZXNjcmVl ltmsNrYfaJZoVJTasS3phzMvCFRy bnRlcnZhbHMsIGFuZCBjbGluaWNh pLLif9GiIUmfwCkdlj1zeJmnlT8z QoWiGdHsCwqgOG7yQNDjK7blzCZm QHIjVLKxI0guKxErqB4euFlpFOzb iqSkUFKmrh51 [facility] Work Phone: Performing Lab g6nnzMYiLUUiy2ddAIJu bGFuZzEw MzNcZnRuYmpcdWMxIHtccnRmMVxh ceFoZGUfReezekfzUCDdJMS9lrVx APZlSLK6QCM3NjYoo8A0GQMbYjPf UVPuAV3caMpdMBVaRQ5hCLKdQ6uj jB1bqpq7CaGgYOMwGlL2TQPjnpH5 Pjj9VYLhIOeus5gmd1RoYBZjNPq3 sXmxLgMfHIRut0jvjwTsIrFeJGJg HMCwNRWacWWiV819l1zrl6gvthGt dRZ3DTHjYAT2KPjyizFbgpN9ZNvr yVQsWdZ7HLntviMcXWekltBxtuOi Yfk4NOSzU923UIT1tQigy6tuIBF2 ISHlMDLsJvTnDe7ukORcK394IWGc TYIRUUVifOn2KKFjudSeouNbjBRD a597M660t4cwYKUqytFqcQlLyhgx s9tiG933CVOyeORyfoPrLpAnKCBn oXRxhWC9TWOkZK9ojyhrUNghNCiw VXHwtlJ8TEGvcPHuV5VwKYZwLM3q rbfjOEM1MCajORTkLXH0UcOrNDVe y4Ogrxy2YbJpbu4wok44BVX5i8Ej lSheNUY3YVR0QjWoEe5ltORuVRJh IU4yVmUsoGClCHHwcv86kTfiRIlb sdZquK6vVeJmUTUmxPKtHBYeSY4m jVQfNTDcqO8fuujpANVlTvOmdhjb CNQfsUpklbSoFa0syQniUOO8XYfu R5smhP2qVuS2OVfnX4hkqK6mKFy0 GIuejOM3CATsdX0wDK5essglw1wc LDpcBZylNQFrzeH5cmX7MQWwoRNq L5MtyV5cFBJaKU8rpvunt4xzYNY6 LBryYZRtJAZ6OjEqVLYeu5Hvswf5 CpVmm5KasNCcMXigQ51do595CSIa hmQuT7smzMNhwuuubSBrnevtWHme yfN2PRNlVMMvZThsBWZyIRXzIgLb bGFuZzEwMzNcaGljaFxmMVxkYmNo YKOfNFknM2cdKeGmAhMeCcWFYVWh xvzcCLnnU96ipA9tHY54AUXipXDd sPLmzM5ftW9meTM7PPUopyTwnour UpZiRINes6YoTQVkWUZvP2htlfTc IU9kWVCeoV4jNewzMKKtZOODcQAi rDCnFBTzRHKFkNT4VWkaxhOzL9dv NDQxOTUgICBDTElBIyAzNkQwNjU2 KDp3FKQrez69e0lusASoGZXafSMi SbBqUWBpZEZow8tpVDPdaKZbDgUw ObAfGfXpWmptsEJkEQCyNbCfy4aw t294rSCap0gmWOFnAmK0sMZtRFDv gLFuG674FXJhKYbow2tiv6QdHUGf pCXqg9T6IWESjgoprEb3fYnaM29j k6O0PpevO1naATGoMCZrF7WpQB3u WKAmZoh8IEG1MIM4XOTuZIKmL5Ex UQ6xPXIjcQQiSCz9j6gkjBxcQJTi AVD0i3hlOHnnfgCwIX2piw5iyNg6 k0lypjPzLPTbULJrgMNYQMToC3Bz eVsmWq9ooXi2rQyaJvsmTPE1Qlj8 UY1odm12jjx9vKrgNEDdajphZpV2 AMdoUEDtwsacOZl1EMpmZZVbbUB7 EXLsjJFeJ5MfHQptYN3qkpu8GUJ9 UNggOTVgFrF3SAWajWPbKIIeoJiz KYkon582KEX6BxSyIW6lW6Zbc4J8 tU2weWMwLDAvrRHdHiDxUPBjtz4p jNWfVUzrd2ZdLPQ9mcC4eUMjrXQu ACRdYU04Zmlop2NbLvspx8GpS16z rKY7FCjnq8dlAT6eXeE3yiRvCFoc v1lxnQ0dGgV4HPunVM6cSY2mDZBo kR4rwzywTRDmUzUvxtpdWWHiuJyk gjMaQq2gsUnwMPX6WUgoM8hthY8r LyU5ABibJ8qarP4kYCr6GGlzlBZ1 BAByzI4vTF1hsmlah9nsNYkpCMge IWNbylE2hzEkVLOvzGZoE5AduD5l BHSeVY7sgwmap8lqBSO0EQooQJXh LGR1WdAhNYDco5Lcwqm5BaYex2Fx bUOhYShpJ25ud524NFRgdnEwX7fd fTAfcfavaGRadyeyGXcbwoJ3QZGl XHBsYWluXGYxXGZzMjBcbGFuZzEw MzNcaGljaFxmMVxkYmNoXGYxXGxv I5yyCsGnEbKvSAUEdARfev4kgKrp HZizoAQkzAFopYM1eG5aIQEdbjIs xi4dOYFnvUWEiOO4APbqjpEeY0rl wzwxXFD9GBPoZXK9C4txAUBDgkCe UDEePCHtgKKtHTRSRLF3IYV8ZWHm SDHBCMDkMZK3MSR3LBVfUIUdtGDr XHBhclxwYXJkXHBsYWluXGYwXGZz GtLfrKzisQ0mSqIrVzSmRCeyYO0s HXRnK7vkjNAvPQReSOZmU9uoWdEw eU7saRjeDIdcIgWhFzPdFZrioDTm tOQFPDLcnwI9b9V1YAxijYAkyccv HWacqqUlMXmwhnsvWEFmYQpoJ6vt WpObTNFraGdsBEeme2RwTDZoLECy ZbFvUSgmECM6n8P1ATdimOTwdcKD ItOSPO9pdAKgrhqfLY1WTvuamADs blxmMVxmczIyXGxhbmcxMDMzXGhp T2cjRkQrSYUywRhrVCdne0NoHEEh XGZzMjJccGFyfX0= [facility] Work Phone: CNOVSPon 08-05-2024 CNOVSP Visit (SP) Office ([place] [facility]) ISABEL WADDELL ([id number]) 1960 F Date Time Provider Department 08/05/24 11:10 AM HENRY RAMOS During your visit today, we recorded the following information about you: Temperature Pulse Blood pressure Weight 99 degrees 81/minute 141/75 67.1 kg Height 1.676 m Henry Ramos MD 08/16/2024 12:41 PM Signed Gynecologic Oncology [facility] Follow up visit Date of service: [...] and 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 The patient [...] by mouth daily at bedtime. Disp: Rfl: [id number]-FISH OIL-L.CASEI ORALTake by mouth once daily.Disp: Rfl: Lactobac no.41/Bifidobact no.7 (PROBIOTIC-10 ORAL)Take by mouth onc (more content not included)... Normal [facility] HIGH RISK HUMAN PAPILLOMA RADHA (HPV), PCR FOR DETECTION AND GENOTYPINGon 08-05-2024 HPV 16 Ag Ql (Unsp spec) Indeterminate Abnormal Not detected [facility] Comment on above: Order Comment: Speci men Type: FLUID SPECIMEN Ordering Facility: [facility] Address: [address] [place], [place] [id number] Performed By: #### L [id number], HPVHRT #### [facility] CLIA [id number] [address] [place] [address] [place] HPV 18 Ag Ql (Unsp spec) Indeterminate Abnormal Not detected [facility] Comment on above: Order Comment: Speci men Type: FLUID SPECIMEN Ordering Facility: [facility] Address: [address] [place] [address] Performed By: #### L [id number], HPVHRT #### [facility] CLIA [id number] [address] [place] [address] [place] HPV 31+33+35+39+45+51+52+ 56+58+59+66+68 DNA ANGELA+probe Ql (Cvx) Indeterminate Abnormal Not detected [facility] Comment on above: Order Comment: Speci men Type: FLUID SPECIMEN Ordering Facility: [facility] Address: [address] [place] [address] Result Comment: High Risk HPV Other Type includes HPV types 31, 33, 35, 39, 45, 51, 52, 56, 58, 59, 66 and 68. Performed By: #### L [id number], HPVHRT #### [facility] CLIA [id number] [address] [place] [address] [place] PAP TESTon 08-05-2024 ADEQUACY Normal [facility] Comment on above: Order Comment: Speci men Type: FLUID SPECIMEN Ordering Facility: [facility] Address: [address] [place] [address] Result Comment: Unsa tisfactory for evaluation. Limited cellularity. Performed By: #### L [id number], HPVHRT #### [facility] CLIA [id number] [address] [place] [address] [place] CASE REPORT Normal [facility] Comment on above: Order Comment: Speci men Type: FLUID SPECIMEN Ordering Facility: [facility] Address: [address] [place] [address] Result Comment: Gyne cologic Cytology Report Case: [id number] Authorizing Provider: Ernesto Chacko APRN.AIRCRAFT INSPECTION RECORD CLERK Collected: 08/05/2024 01:17 PM Ordering Location: Gynecology Oncology Received: 08/05/2024 07:53 PM First Screen: Silvia Lr, CT, ASCP Pathologist: Brice Cervantes MD Specimen: Pap Test, ThinPrep, Vagina Performed By: #### L [id number], HPVHRT #### [facility] CLIA [id number] [address] [place] [address] [place] CLINICAL HISTORY, CYTOLOGY, METAL FURNACE OPERATOR Normal [facility] Comment on above: Order Comment: Speci men Type: FLUID SPECIMEN Ordering Facility: [facility] Address: [address] [place] [address] Result Comment: Abno rmal Bleeding (Describe) Hysterectomy, Total Performed By: #### L [id number], HPVHRT #### [facility] CLIA [id number] [address] [place] [address] [place] FINAL PERFORMING LAB Normal [facility] Comment on above: Order Comment: Speci men Type: FLUID SPECIMEN Ordering Facility: [facility] Address: [address] [place] [address] Result Comment: Tech nical component, instructor knitting screening performed at [facility], [address] [place] [address] CLIA# [id number] Diagnostic interpretation performed at [facility], [address] [place], [place] [id number] CLIA# [id number] Asphalt Spreader: Anant Dumont M.D. Performed By: #### L [id number], HPVHRT #### [facility] CLIA [id number] [address] [place] [address] [place] GROSS DESCRIPTION A. Vagina Normal [facility] Comment on above: Order Comment: Speci men Type: FLUID SPECIMEN Ordering Facility: [facility] Address: [address] [place] [address] Result Comment: Glac ial Acetic Acid added. Performed By: #### L [id number], HPVHRT #### [facility] CLIA [id number] [address] [place] [address] [place] HPV REFLEX Yes HPV Normal [facility] Comment on above: Order Comment: Speci men Type: FLUID SPECIMEN Ordering Facility: [facility] Address: [address] [place] [address] Performed By: #### L [id number], HPVHRT #### [facility] CLIA [id number] [address] [place] [address] [place] INTERPRETATION, CYTOLOGY, METAL FURNACE OPERATOR Normal [facility] Comment on above: Order Comment: Speci men Type: FLUID SPECIMEN Ordering Facility: [facility] Address: [address] [place] [address] Result Comment: Unab le to perform interpretation due to unsatisfactory specimen. Performed By: #### L [id number], HPVHRT #### [facility] CLIA [id number] [address] [place] [address] [place] PAP DISCLAIMER COMMENT The Pap Smear is a screening test for cervical cancer. False negative results occur with all screening tests, emphasizing the need for rescreening at recommended intervals, and clinical correlation. Normal [facility] Comment on above: Order Comment: Speci men Type: FLUID SPECIMEN Ordering Facility: [facility] Address: [address] [place] [address] Performed By: #### L [id number], HPVHRT #### [facility] CLIA [id number] [address] [place] [address] [place] Laboratory - Chemistry and C hemistry - challengeon 06-25-2024 Free T4 [Mass/Vol] 1.58 ng/dL High 0.76-1.46 [facility] No Panel Informationon 06-25 Thyroid Stimulating Hormone 3rd Gen <0.007 u[iU]/mL Low 0.358-3.74 0 [facility] Total Triiodothyronine 199 ng/dL Abnormal 71-180 [facility] Comment on above: Performed at: [facility] [id number] [place], [place] [id number] Director: Alex Morse PhD, Phone: [phone] Laboratory - Chemistry and C hemistry - challengeon 05-19-2024 Free T4 [Mass/Vol] 2.49 ng/dL High 0.76-1.46 [facility] No Panel Informationon 05-19 Thyroid Stimulating Hormone 3rd Gen <0.007 u[iU]/mL Low 0.358-3.74 0 [facility] Total Triiodothyronine 271 ng/dL Abnormal 71-180 [facility] Comment on above: Performed at: [facility] [id number] [place], [place] [id number] Director: Alex Morse PhD, Phone: [phone] Thyroid stimulating immunogl obulin (TSI) measurementon 05-19-2024 Thyroid stimulating immunoglobulins actual/normal (S) [Relative mass conc] 3.57 IU/L Abnormal 0.00-0.55 [facility] Comment on above: Performed at: [facility] [address] [id number] Director: Betty Montiel MD, Phone: [phone] No Panel InformationOrdered By: Dee Dee Espana on 05-04-2024 Quick Strep (POC) [facility] Basophils Auto (Bld) [#/Vol] on 05-03-2024 Basophils (Bld) [#/Vol] 0.0 10 3/uL 0.0-0.1 [facility] Basophils/100 WBC Auto (Bld) on 05-03-2024 Basophils/100 WBC (Bld) 0.2 % 0.2-2.0 [facility] Eosinophils/100 WBC Auto (Bl d)on 05-03-2024 Eosinophils/100 WBC (Bld) 5.4 % 0.9-7.0 [facility] Erythrocyte distribution wid th Auto (RBC) [Ratio]on 05-03-2024 Erythrocyte distribution width (RBC) [Ratio] 12.7 % 11.0-15.0 [facility] Hematocrit Auto (Bld) [Volum e fraction]on 05-03-2024 Hematocrit (Bld) [Volume fraction] 40.6 % 36.0-48.0 [facility] Hemoglobin [Mass/volume] in Bloodon 05-03-2024 Hemoglobin (Bld) [Mass/Vol] 13.1 g/dL 12.0-16.0 [facility] Iron binding capacity [Mass/ volume] in Serum or Plasmaon 05-03-2024 Iron binding capacity [Mass/Vol] 279.0 ug/dL 250.0-450. 0 [facility] Iron saturation [Mass Fracti on] in Serum or Plasmaon 05-03-2024 Iron saturation [Mass fraction] 14.0 % [facility] Laboratory - Chemistry and C hemistry - challengeon 05-03-2024 Ferritin [Mass/Vol] 128.0 ng/mL 8.0-252.[address] [facility] Free T4 [Mass/Vol] 2.46 ng/dL High 0.76-1.46 [facility] Iron [Mass/Vol] 39.0 ug/dL Low 50.0-170.0 [facility] Laboratory - Hematology and Cell countson 05-03-2024 Immature granulocytes/100 WBC (Bld) 0.2 % 0.0-0.5 [facility] Leukocytes [#/volume] correc katherine for nucleated erythrocytes in Blood by Automated counon 05-03-2024 WBC corrected for nucl RBC Auto (Bld) [#/Vol] 4.3 10 3/uL 4.0-11.0 [facility] Lymphocytes Auto (Bld) [#/Vo l]on 05-03-2024 Lymphocytes (Bld) [#/Vol] 1.3 10 3/uL 1.2-3.8 [facility] Lymphocytes/100 WBC Auto (Bl d)on 05-03-2024 Lymphocytes/100 WBC (Bld) 29.7 % 20.5-60.0 [facility] MCH Auto (RBC) [Entitic mass ]on 05-03-2024 MCH (RBC) [Entitic mass] 29.2 pg 26.7-34.0 [facility] MCHC Auto (RBC) [Mass/Vol]on 05-03-2024 MCHC (RBC) [Mass/Vol] 32.3 g/dL 29.9-35.2 [facility] MCV Auto (RBC) [Entitic vol] on 05-03-2024 MCV (RBC) [Entitic vol] 90.4 fL 81.0-99.0 [facility] Monocytes Auto (Bld) [#/Vol] on 05-03-2024 Monocytes (Bld) [#/Vol] 0.5 10 3/uL 0.3-0.8 [facility] Monocytes/100 WBC Auto (Bld) on 05-03-2024 Monocytes/100 WBC (Bld) 11.0 % 1.7-12.0 [facility] Neutrophils Auto (Bld) [#/Vo l]on 05-03-2024 Neutrophils (Bld) [#/Vol] 2.3 10 3/uL 1.4-6.5 [facility] Neutrophils/100 WBC Auto (Bl d)on 05-03-2024 Neutrophils/100 WBC (Bld) 53.5 % 43.0-75.0 [facility] No Panel Informationon 05-03 Eosinophils # (Auto) 0.2 10 3/uL 0.0-0.7 [facility] Immature Granulocyte # (Auto) 0.01 10 3/uL 0.00-0.03 [facility] Thyroid Stimulating Hormone 3rd Gen <0.007 u[iU]/mL Low 0.358-3.74 0 [facility] Platelet mean volume Auto (B ld) [Entitic vol]on 05-03-2024 Platelet mean volume (Bld) [Entitic vol] 9.6 fL 9.5-13.5 [facility] Platelets Auto (Bld) [#/Vol] on 05-03-2024 Platelets (Bld) [#/Vol] 192 10 3/uL 150-450 [facility] RBC Auto (Bld) [#/Vol]on RBC (Bld) [#/Vol] 4.49 10 6/uL 4.20-5.40 [facility] TYPE + SCREENon 08-29-2023 ABO group Nom (Bld) O [facility] Blood group antibody screen Ql Negative [facility] HIstorical Ab Scr Status Negative [facility] Rh Nom (Bld) Positive [facility] Type and Screen Expiration 09/01/2023 23:59 [facility] XR CHEST 2V FRONTAL/LATon [facility] CT CHEST WO IVCONon 08-22-20 [facility] Comprehensive metabolic 2000 panelon 07-05-2023 Albumin [Mass/Vol] 4.0 g/dL 3.9 - 4.9 g/dL [facility] ALP [Catalytic activity/Vol] 161 U/L High 34 - 123 U/L [facility] ALT [Catalytic activity/Vol] 47 U/L High 7 - 38 U/L [facility] Anion gap [Moles/Vol] 11 mmol/L 9 - 18 mmol/L [facility] AST [Catalytic activity/Vol] 41 U/L High 13 - 35 U/L [facility] Bilirubin [Mass/Vol] 0.3 mg/dL 0.2 - 1 .3 mg/dL [facility] Calcium [Mass/Vol] 9.5 mg/dL 8.5 - 10. 2 mg/dL [facility] Chloride [Moles/Vol] 105 mmol/L 97 - 10 5 mmol/L [facility] CO2 [Moles/Vol] 26 mmol/L 22 - 30 mmol/L [facility] Creatinine [Mass/Vol] 0.74 mg/dL 0.58 - 0.96 mg/dL [facility] Estimated Glomerular Filtration Rate 91 mL/min/1.73m >=60 mL/min/1.7 3m [facility] Glucose [Mass/Vol] 104 mg/dL High 74 - 99 mg/dL [facility] Potassium [Moles/Vol] 4.5 mmol/L 3.7 - 5.1 mmol/L [facility] Protein [Mass/Vol] 6.3 g/dL 6.3 - 8.0 g/dL [facility] Sodium [Moles/Vol] 142 mmol/L 136 - 144 mmol/L [facility] Urea nitrogen [Mass/Vol] 16 mg/dL 7 - 21 mg/dL [facility] CBC W Auto Differential pane l (Bld)on 07-04-2023 Basophils (Bld) [#/Vol] 0.03 10*3/uL <0.11 k/uL [facility] Basophils/100 WBC (Bld) 0.9 % [facility] Differential cell count method Nom (Bld) Auto [facility] Eosinophils (Bld) [#/Vol] 0.16 10*3/uL <0.46 k/uL [facility] Eosinophils/100 WBC (Bld) 4.9 % [facility] Erythrocyte distribution width (RBC) [Ratio] 19.9 % High 11.5 - 15.0 % [facility] Hematocrit (Bld) [Volume fraction] 25.1 % Low 36.0 - 46.0 % [facility] Hemoglobin (Bld) [Mass/Vol] 7.1 g/dL Low 11.5 - 15.5 g/dL [facility] Immature granulocytes (Bld) [#/Vol] <0.10 k/uL [facility] Immature granulocytes/100 WBC (Bld) 0.3 % [facility] Lymphocytes (Bld) [#/Vol] 1.12 10*3/uL 1.00 - 4.00 k/uL [facility] Lymphocytes/100 WBC (Bld) 34.6 % [facility] MCH (RBC) [Entitic mass] 19.2 pg Low 26.0 - 34.0 pg [facility] MCHC (RBC) [Mass/Vol] 28.3 g/dL Low 30.5 - 36.0 g/dL [facility] MCV (RBC) [Entitic vol] 67.8 fL Low 80.0 - 100.0 fL [facility] Monocytes (Bld) [#/Vol] 0.49 10*3/uL <0.87 k/uL [facility] Monocytes/100 WBC (Bld) 15.1 % [facility] Neutrophils (Bld) [#/Vol] 1.43 10*3/uL Low 1.45 - 7.50 k/uL [facility] Neutrophils/100 WBC (Bld) 44.2 % [facility] Nucleated RBC (Bld) [#/Vol] <0.01 k/uL [facility] Nucleated RBC/100 WBC (Bld) [Ratio] 0.0 /100 WBC [facility] Platelet mean volume (Bld) [Entitic vol] 9.8 fL 9.0 - 12.7 fL [facility] Platelets (Bld) [#/Vol] 304 10*3/uL 150 - 400 k/uL [facility] RBC (Bld) [#/Vol] 3.70 10*6/uL Low 3.90 - 5.20 m/uL [facility] WBC (Bld) [#/Vol] 3.24 10*3/uL Low 3.70 - 11.00 k/uL [facility] HEMOGLOBINon 03-21-2023 Hemoglobin (Bld) [Mass/Vol] 9.1 g/dL Critically low 12.0-16.0 [facility] Comment on above: Performed By: #### H GB ####[facility] [id number] [place], [place] [address]WnStephan Monzon XR CHEST 2 Von 03-10-2023 XR [...] 2. Hyperexpanded lungs. Electronically authenticated by: HENRY LCOK Date: 2023-03-10 13:57 Normal [facility] Covid-19 PCR (CVDTB)on SARS-CoV-2 (COVID-19) RNA ANGELA+probe Ql (Unsp spec) Not detected Normal NOT DETECTED [facility] Comment on above: Result Comment: When diagnostic [...] for this test is supported by the [place] of Health and Human Service's declaration that [...] used). Performed By: #### C VDTBH #### [facility] [address] [place] [address] Dr. Cheryl Monzon INFLUENZA A AND B AGon 01-20 [facility] SEE BELOW Normal [facility] Comment on above: Result Comment: Nega tive for Flu A protein angiten. Infection due to Flu A cannot be ruled out. Flu A angiten in the sample may be below the detection limit of the test. Performed By: #### I NFLUAB #### [facility] [address] [place] [address] Dr. [facility]yl [facility] Normal [facility] Comment on above: Result Comment: Nega tive for Flu B protein antigen. Infection due to Flu B cannot be ruled out. Flu B antigen in the sample may be below the detection limit of the test. Performed By: #### I NFLUAB #### [facility] [address] [place] [address] Dr. Cheryl Monzon INFLUENZA A AG Negative Normal NEGATIVE SEE COMMENT [facility] Comment on above: Performed By: #### I NFLUAB #### [facility] [address] [place] [address] Dr. Cheryl Monzon INFLUENZA B AG Negative Normal NEGATIVE SEE COMMENT [facility] Comment on above: Performed By: #### I NFLUAB #### [facility] [address] [place] [address] Dr. Cheryl Monzon FERRITIN BLDon 01-04-2023 Ferritin [Mass/Vol] 14.2 ng/mL Low 14.7 - 205.1 ng/mL [facility] Iron and Iron binding capaci ty panelon 01-04-2023 Iron [Mass/Vol] 77 ug/dL 41 - 186 ug/dL [facility] Iron binding capacity [Mass/Vol] 382 ug/dL 232 - 386 ug/dL [facility] Iron/TIBC [Molar ratio] 20.2 % 15.0 - 57.0 % [facility] CBC W Auto Differential pane l (Bld)on 01-03-2023 Basophils (Bld) [#/Vol] <0.11 k/uL [facility] Basophils/100 WBC (Bld) 0.4 % [facility] Differential cell count method Nom (Bld) Auto [facility] Eosinophils (Bld) [#/Vol] 0.14 10*3/uL <0.46 k/uL [facility] Eosinophils/100 WBC (Bld) 3.1 % [facility] Erythrocyte distribution width (RBC) [Ratio] 13.0 % 11.5 - 15.0 % [facility] Hematocrit (Bld) [Volume fraction] 35.4 % Low 36.0 - 46.0 % [facility] Hemoglobin (Bld) [Mass/Vol] 11.5 g/dL 11.5 - 15.5 g/dL [facility] Immature granulocytes (Bld) [#/Vol] <0.10 k/uL [facility] Immature granulocytes/100 WBC (Bld) 0.2 % [facility] Lymphocytes (Bld) [#/Vol] 1.31 10*3/uL 1.00 - 4.00 k/uL [facility] Lymphocytes/100 WBC (Bld) 29.0 % [facility] MCH (RBC) [Entitic mass] 30.0 pg 26.0 - 34.0 pg [facility] MCHC (RBC) [Mass/Vol] 32.5 g/dL 30.5 - 36.0 g/dL [facility] MCV (RBC) [Entitic vol] 92.4 fL 80.0 - 100.0 fL [facility] Monocytes (Bld) [#/Vol] 0.50 10*3/uL <0.87 k/uL [facility] Monocytes/100 WBC (Bld) 11.1 % [facility] Neutrophils (Bld) [#/Vol] 2.53 10*3/uL 1.45 - 7.50 k/uL [facility] Neutrophils/100 WBC (Bld) 56.2 % [facility] Nucleated RBC (Bld) [#/Vol] <0.01 k/uL [facility] Nucleated RBC/100 WBC (Bld) [Ratio] 0.0 /100 WBC [facility] Platelet mean volume (Bld) [Entitic vol] 9.9 fL 9.0 - 12.7 fL [facility] Platelets (Bld) [#/Vol] 235 10*3/uL 150 - 400 k/uL [facility] RBC (Bld) [#/Vol] 3.83 10*6/uL Low 3.90 - 5.20 m/uL [facility] WBC (Bld) [#/Vol] 4.51 10*3/uL 3.70 - 11.00 k/uL [facility]on SARS-CoV-2 (COVID-19) RNA ANGELA+probe Ql (Unsp spec) Not detected Normal NOT DETECTED [facility] Comment on above: Result Comment: When diagnostic [...] for this test is supported by the [place] of Health and Human Service's declaration that [...] used). Performed By: #### C VDTBH #### [facility] [address] [place] [address] Dr. Cheryl Monzon INFLUENZA A AND B AGon 11-19 [facility] SEE BELOW Normal [facility] Comment on above: Result Comment: Nega tive for Flu A protein angiten. Infection due to Flu A cannot be ruled out. Flu A angiten in the sample may be below the detection limit of the test. Performed By: #### I NFLUAB #### [facility] [address] [place] [address] Dr. [facility] SEE BELOW Normal [facility] Comment on above: Result Comment: Nega tive for Flu B protein antigen. Infection due to Flu B cannot be ruled out. Flu B antigen in the sample may be below the detection limit of the test. Performed By: #### I NFLUAB #### [facility] [address] [address] [address] Cheryl Monzon INFLUENZA A AG Negative Normal NEGATIVE SEE COMMENT [facility] Comment on above: Performed By: #### I NFLUAB #### [facility] [address] [address] [address] Cheryl Monzon INFLUENZA B AG Negative Normal NEGATIVE SEE COMMENT [facility] Comment on above: Performed By: #### I NFLUAB #### [facility] [address] [address] [address] Cheryl Monzon MG MAMM SCREEN 3D RAGHU CADon 10-04-2022 MG MAMM SCREEN 3D RAGHU CAD Patient: ISABEL WADDELL Exam Date: 10/04/2022 : 1960 Gender:F Ordering : DR ROLAND SERRANO D.O. Admission #: [id number] Family : Order #: [id number] CLICK HERE TO VIEW EXAM RADIOLOGY REPORT [...] Treatments radiation-hysterectomy Family Cancers None LOCATION: [facility] BREAST COMPOSITION: Scattered areas fibroglandular density. FINDINGS: [...] MD on 10/04/2022 at 13:53 Normal [facility] COLONOSCOPY (THERAPEUTIC)on 09-26-2022 [facility] T3, TOTAL (TRIIODOTHYRONINE) on 09-05-2022 T3, TOTAL 132 ng/dL Normal 71-180 [facility] Comment on above: Performed By: #### T 3TOTAL ####[facility] [address] [place] [id number]. Cheryl Monzon CBC AUTO DIFFon 09-04-2022 BASO # 0.0 103/ul Normal 0.0-0.1 [facility] Comment on above: Performed By: #### C BC ####[facility] [address] [place] [address]Dr. Lissettalden Monzon Basophils/100 WBC (Bld) 0.4 % Normal 0.2-2.0 [facility] Comment on above: Performed By: #### C BC ####[facility] [address] [place], [place] [address]Dr. Lissettalden Monzon EO # 0.1 103/ul Normal 0.0-0.7 [facility] Comment on above: Performed By: #### C BC ####[facility] [address] [place], [place] [address]Dr. Lissettalden Monzon Eosinophils/100 WBC (Bld) 4.9 % Normal 0.9-7.0 [facility] Comment on above: Performed By: #### C BC ####[facility] [address] [place], [place] [address]Dr. Cheryl Nicolás Erythrocyte distribution width (RBC) [Ratio] 12.8 % Normal 11.0-15.0 [facility] Comment on above: Performed By: #### C BC ####[facility] D[address] [place], [place] [address]Dr. Cheryl Monzon Hematocrit (Bld) [Volume fraction] 36.7 % Normal 36.0-48.0 [facility] Comment on above: Performed By: #### C BC ####[facility] [address] [place], [place] [address]Dr. Lissettalden Monzon Hemoglobin (Bld) [Mass/Vol] 11.8 g/dL Critically low 12.0-16.0 [facility] Comment on above: Performed By: #### C BC ####[facility] [address] [place], [place] [address]Dr. hCeryl Monzon IG # 0.01 10e3/ul Normal 0.00-0.03 [facility] Comment on above: Performed By: #### C BC ####[facility] [address] [place] [address]Dr. Cheryl Monzon IG % 0.4 % Normal 0.0-0.5 [facility] Comment on above: Performed By: #### C BC ####[facility] [address] [place] [address]Dr. Cheryl Monzon LYMPH # 0.8 103/ul Critically low 1.2-3.8 [facility] Comment on above: Performed By: #### C BC ####[facility] [address] [place] [address]Dr. Lissettalden Monzon Lymphocytes/100 WBC (Bld) 28.6 % Normal 20.5-60.0 [facility] Comment on above: Performed By: #### C BC ####[facility] [address] [place], [place] [address]Dr. Cheryl Monzon MANUAL DIFF REQ NO Normal [facility] Comment on above: Performed By: #### C BC ####[facility] [address] [place], [place] [address]Dr. Cheryl Monzon MCH (RBC) [Entitic mass] 30.7 pg Normal 26.7-34.0 [facility] Comment on above: Performed By: #### C BC ####[facility] [address] [place] [address]Dr. Cheryl Nicolás MCHC (RBC) [Mass/Vol] 32.2 g/dL Normal 29.9-35.2 [facility] Comment on above: Performed By: #### C BC ####[facility] [address] [place], [place] [address]Dr. Cheryl Monzon MCV (RBC) [Entitic vol] 95.6 fL Normal 81.0-99.0 [facility] Comment on above: Performed By: #### C BC ####[facility] [address] [place], [place] [address]Dr. Cheryl Monozn MONO # 0.3 103/ul Normal 0.3-0.8 [facility] Comment on above: Performed By: #### C BC ####[facility] [address] [place] [id number]. Cheryl Monzon Monocytes/100 WBC (Bld) 11.7 % Normal 1.7-12.0 [facility] Comment on above: Performed By: #### C BC ####[facility] [address] [place] [address]Dr. Cheryl Monzon NEUT # 1.4 103/ul Normal 1.4-6.5 [facility] Comment on above: Performed By: #### C BC ####[facility] [address] [place] [id number]. Cheryl Monzon Neutrophils/100 WBC (Bld) 54.0 % Normal 43.0-75.0 [facility] Comment on above: Performed By: #### C BC ####[facility] [address] [place] [address]Dr. Cheryl Monzon Platelet mean volume (Bld) [Entitic vol] 9.2 fL Critically low 9.5-13.5 [facility] Comment on above: Performed By: #### C BC ####[facility] [address] [place] [address]Dr. Cheryl Monzon PLT 217 103/ul Normal 150-450 [facility] Comment on above: Performed By: #### C BC ####[facility] [address] [place] [id number]. Cheryl Monzon RBC 3.84 106/ul Critically low 4.20-5.40 [facility] Comment on above: Performed By: #### C BC ####[facility] [address] [place], [place] [address]Dr. Cheryl Monzon WBC 2.7 103/ul Critically low 4.0-11.0 [facility] Comment on above: Performed By: #### C BC ####[facility] [address] [place], [place] [address]Dr. Cheryl Monzon FREE T4on 09-04-2022 Free T4 [Mass/Vol] 0.83 ng/dL Normal 0.76-1.46 [facility] Comment on above: Performed By: #### F T4 #### [facility] [address] [place] [address] [address] hCeryl Monzon GLYCOHEMOGLOBIN A1Con 2021 ADA RECOMMENDATION SEE BELOW Normal [facility] Comment on above: Result Comment: ADA RECOMMENDED LIMIT 4.0 - 6.0 ADA THERAPEUTIC TARGET < 7.0 ACTION SUGGESTED > 7.0 Performed By: #### A 1C #### [facility] [address] [place] [address] [address] Cheryl Monzon Glucose [Mass/Vol] 111 mg/dL Normal [facility] Comment on above: Performed By: #### A 1C #### [facility] [address] [place] [address] [address] Cheryl Monzon HbA1c (Bld) [Mass fraction] 5.5 % Normal 4.5-6.2 [facility] Comment on above: Performed By: #### A 1C #### [facility] [address] [place] [address] [address] Cheryl Monzon LIPID PROFILEon 09-04-2022 CHOL-HDL RATIO NORM SEE BELOW Normal [facility] Comment on above: Result Comment: 3.3 - 4.4 LOW RISK 4.4 - 7.1 AVERAGE RISK 7.1 - 11.0 MODERATE RISK >11.0 HIGH RISK Performed By: #### T SH, LIPID, CMP ####[facility] [address] [place] [address]DrStephan Monzon Cholesterol [Mass/Vol] 201 mg/dL Critically high <=200 [facility] Comment on above: Performed By: #### T SH, LIPID, CMP ####[facility] [address] [place] [id number] Monzon Cholesterol in HDL [Mass/Vol] 78 mg/dL Critically high 40-60 [facility] Comment on above: Performed By: #### T SH, LIPID, CMP ####[facility] [address]bi[address] [place] [address]DrStephan Monzon Cholesterol in LDL [Mass/Vol] 112.8 mg/dL Normal [facility] Comment on above: Performed By: #### T SH, LIPID, CMP ####[facility] [address] [place] [address]DrStephan Monzon Cholesterol.total/Cho lesterol in HDL [Mass ratio] 2.6 {ratio} Normal [facility] Comment on above: Performed By: #### T PUSHPA, LIPID, CMP ####[facility] [address] [place] [address]DrStephan Monzon HDL NORMAL > or = 60 mg/dl - LO W CARDIOVASCULAR RISK <40 mg/dl - HIGH CARDIOVASCULAR RISK Normal [facility] Comment on above: Performed By: #### T PUSHPA, LIPID, CMP ####[facility] [address] [place] [address]DrStephan Monzon LDL CALC NORMAL SEE BELOW Normal [facility] Comment on above: Result Comment: <100 mg/dl OPTIMAL 100 - 129 mg/dl NEAR OR ABOVE OPTIMAL 130 - 159 mg/dl BORDERLINE HIGH 160 - 189 mg/dl HIGH >190 mg/dl VERY HIGH Performed By: #### T PUSHPA, LIPID, CMP ####[facility] [address] [place] [address]Dr. Cheryl Monzon Triglyceride [Mass/Vol] 51 mg/dL Normal <=150 [facility] Comment on above: Performed By: #### T PUSHPA, LIPID, CMP ####[facility] [address] [place] [address]DrStephan Monzon VLDL CALC 10.2 mg/dL Normal [facility] Comment on above: Performed By: #### T PUSHPA, LIPID, CMP ####[facility] [address] [place] [address]Dr. Cheryl Monzon PROF 14(COMP METB)on 022 Albumin [Mass/Vol] 3.3 g/dL Critically low 3.4-5.0 [facility] Comment on above: Performed By: #### T PUSHPA, LIPID, CMP #### [facility] [address] [place], [place] [address] Dr. Cheryl Monzon Albumin/Globulin [Mass ratio] 1.0 {ratio} Normal [facility] Comment on above: Performed By: #### T PUSHPA, LIPID, CMP #### [facility] [address] [place] [address] [address] Cheryl Monzon ALP [Catalytic activity/Vol] 94 U/L Normal 46-116 [facility] Comment on above: Performed By: #### T SH, LIPID, CMP #### [facility] [address] [place] [address] [address] Cheryl Monzon ALT [Catalytic activity/Vol] 53 U/L Normal 14-59 [facility] Comment on above: Performed By: #### T SH, LIPID, CMP #### [facility] [address] [place] [address] [address] Cheryl Monzon Anion gap [Moles/Vol] 8.8 mmol/L Normal [facility] Comment on above: Performed By: #### T SH, LIPID, CMP #### [facility] [address] [place] [address] Dr. Cheryl Monzon AST [Catalytic activity/Vol] 42 U/L Critically high 15-37 [facility] Comment on above: Performed By: #### T SH, LIPID, CMP #### [facility] [address] [place] [address] Dr. Cheryl Monzon Bilirubin [Mass/Vol] 0.3 mg/dL Normal 0.2-1.0 [facility] Comment on above: Performed By: #### T SH, LIPID, CMP #### [facility] [address] [place] [address] Dr. Cheryl Monzon Calcium [Mass/Vol] 8.8 mg/dL Normal 8.5-10.1 [facility] Comment on above: Performed By: #### T SH, LIPID, CMP #### [facility] [address] [place] [address] [address] Cheryl Monzon Chloride [Moles/Vol] 106 mmol/L Normal 98-107 [facility] Comment on above: Performed By: #### T SH, LIPID, CMP #### [facility] [address] [place] [address] Dr. Cheryl Monzon CO2 [Moles/Vol] 30.7 mmol/L Normal 21.0-32.0 [facility] Comment on above: Performed By: #### T SH, LIPID, CMP #### [facility] [address] [place] [address] [address] Cheryl Monzon Creatinine [Mass/Vol] 0.66 mg/dL Normal 0.55-1.02 [facility] Comment on above: Performed By: #### T SH, LIPID, CMP #### [facility] [address] [place] [address] [address] Cheryl Monzon EGFR-AF ARMENIAN >60 Normal >=60 [facility] Comment on above: Performed By: #### T SH, LIPID, CMP #### [facility] [address] [place] [address] [address] Cheryl Monzon EGFR-NON AF ARMENIAN >60 Normal >=60 [facility] Comment on above: Performed By: #### T SH, LIPID, CMP #### [facility] [address] [place] [address] [address] Cheryl Monzon Globulin (S) [Mass/Vol] 3.4 g/dL Normal [facility] Comment on above: Performed By: #### T SH, LIPID, CMP #### [facility] [address] [place] [address] [address] Cheryl Monzon Glucose [Mass/Vol] 115 mg/dL Critically high 74-106 [facility] Comment on above: Performed By: #### T SH, LIPID, CMP #### [facility] [address] [place] [address] [address] Cheryl Monzon Potassium [Moles/Vol] 4.5 mmol/L Normal 3.5-5.1 [facility] Comment on above: Performed By: #### T SH, LIPID, CMP #### [facility] [address] [place] [address] [address] Cheryl Monzon Protein [Mass/Vol] 6.7 g/dL Normal 6.4-8.2 [facility] Comment on above: Performed By: #### T SH, LIPID, CMP #### [facility] [address] [place] [address] [address] Cheryl Monzon Sodium [Moles/Vol] 141 mmol/L Normal 136-145 [facility] Comment on above: Performed By: #### T SH, LIPID, CMP #### [facility] [address] [place] [address] [address] Cheryl Monzon Urea nitrogen [Mass/Vol] 16.0 mg/dL Normal 7.0-18.0 [facility] Comment on above: Performed By: #### T SH, LIPID, CMP #### [facility] [address] [place] [address] Dr. Cheryl Monzon Urea nitrogen/Creatinine [Mass ratio] 24.2 mg/mg Normal [facility] Comment on above: Performed By: #### T SH, LIPID, CMP #### [facility] [address] [place] [address] Dr. Cheryl Monzon TSHon 09-04-2022 TSH 0.009 uIU/mL Critically low 0.358-3.74 0 [facility] Comment on above: Performed By: #### T SH, LIPID, CMP #### [facility] [address] [place] [address] Dr. Cheryl Monzon [facility] SARS-CoV-2 (COVID-19) RNA ANGELA+probe Ql (Unsp spec) Not detected Normal NOT DETECTED [facility] Comment on above: Result Comment: [...] for this test is supported by the [employer] of Health and Human Service's declaration that [...] longer be used). Performed By: #### C [facility] #### [facility] [address] [address] [address] Abdomen and Pelvis W cont bharat [place] 12-13-2021 IMPRESSION: 1. 5 mm hepatic [...] any questions regarding this interpretation, please call [phone]. If you are unable to reach us at the number above, please feel free to contact [facility] at [phone]. DIVISION OF RADIOLOGY * * *Final Report* * * DATE OF EXAM: Dec 13 2021 9:56AM [facility] 0530 - CT ABD/PEL W IVCON [...] performed concurrently and will be dictated separately. Cyber Crime Investigator (topogram) images: No additional findings. DIVISION OF RADIOLOGY Provider, [facility] - 12/13/2021 * * *Final Report* * * DATE OF EXAM: Dec 13 2021 9:56AM [facility] 0530 - CT ABD/PEL W IVCON [...] performed concurrently and will be dictated separately. Cyber Crime Investigator (topogram) images: No additional findings. IMPRESSION IMPRESSION: [...] any questions regarding this interpretation, please call [phone]. If you are unable to reach us at the number above, please feel free to contact [facility] eRadiology at [phone]. [facility] CT Abdomen and Pelvis W cont rast IVOrdered By: [facility] Provider on 12-13-2021 [facility] CT Chest W contrast [place] [...] any questions regarding this interpretation, please call [phone]. If you are unable to reach us at the number above, please feel free to contact [facility] at [phone]. DIVISION OF RADIOLOGY * * *Final Report* * * DATE OF EXAM: Dec 13 2021 9:56AM [facility] 0539 - CT CHEST W IVCON [...] performed concurrently and will be dictated separately. Cyber Crime Investigator (topogram) images: No additional findings. DIVISION OF RADIOLOGY Provider, [facility] - 12/13/2021 * * *Final Report* * * DATE OF EXAM: Dec 13 2021 9:56AM [facility] 0539 - CT CHEST W IVCON [...] performed concurrently and will be dictated separately. Cyber Crime Investigator (topogram) images: No additional findings. IMPRESSION IMPRESSION: [...] any questions regarding this interpretation, please call [phone]. If you are unable to reach us at the number above, please feel free to contact [facility]Radiology at [phone]. [facility] No Panel Informationon 12-13 Radiology Study observation (narrative) [facility] CBC with Diffon 11-22-2021 Abs. Basophil 0.00 k/uL Normal 0.0-0.2 [facility] Comment on above: Performed By: #### C DP, CMPX, SED, LAC #### [facility] [address] [place] [address] Associate Publisher: Jacob Campos MD Abs.Neutrophil (Seg) 2.80 k/uL Normal 2.5-7.0 [facility] Comment on above: Performed By: #### C DP, CMPX, SED, LAC #### [facility] [address] [place] [address] Associate Publisher: Jacob Campos MD Auto Diff Performed YES Normal [facility] Comment on above: Performed By: #### C DP, CMPX, SED, LAC #### [facility] [address] [place] [address] Associate Publisher: Jacob Campos MD Basophils/100 WBC (Bld) 1 % Normal 0-2 [facility] Comment on above: Performed By: #### C DP, CMPX, SED, LAC #### [facility] [address] [place] [address] Associate Publisher: Jacob Campos MD Eosinophils (Bld) [#/Vol] 0.10 10*3/uL Normal 0.0-0.4 [facility] Comment on above: Performed By: #### C DP, CMPX, SED, LAC #### [facility] [address] [place] [address] Associate Publisher: Jacob Campos MD Eosinophils/100 WBC (Bld) 3 % Normal 0-5 [facility] Comment on above: Performed By: #### C DP, CMPX, SED, LAC #### [facility] [address] [place] [id number] Associate Publisher: Jacob Campos MD Erythrocyte distribution width (RBC) [Ratio] 13.6 % Normal 12.1-15.2 [facility] Comment on above: Performed By: #### C DP, CMPX, SED, LAC #### [facility] [address] [place] [id number] Associate Publisher: Jacob Campos MD Hematocrit (Bld) [Volume fraction] 33.4 % Low 36-46 [facility] Comment on above: Performed By: #### C DP, CMPX, SED, LAC #### [facility] [address] [place] [address] Associate Publisher: Jacob Campos MD Hemoglobin (Bld) [Mass/Vol] 11.3 g/dL Low 12.0-16.0 [facility] Comment on above: Performed By: #### C DP, CMPX, SED, LAC #### [facility] [address] [place] [address] Associate Publisher: Jacob Campos MD Lymphocytes (Bld) [#/Vol] 0.80 10*3/uL Low 1.0-4.8 [facility] Comment on above: Performed By: #### C DP, CMPX, SED, LAC #### [facility] [address] [place] [address] Associate Publisher: Jacob Campos MD Lymphocytes/100 WBC (Bld) 19 % Normal 15-40 [facility] Comment on above: Performed By: #### C DP, CMPX, SED, LAC #### [facility] [address] [place] [address] Associate Publisher: Jacob Campos MD MCH (RBC) [Entitic mass] 30.5 pg Normal 26-34 [facility] Comment on above: Performed By: #### C DP, CMPX, SED, LAC #### [facility] [address] [place] [address] Associate Publisher: Jacob Campos MD MCHC (RBC) [Mass/Vol] 33.8 g/dL Normal 31-37 [facility] Comment on above: Performed By: #### C DP, CMPX, SED, LAC #### [facility] [address] [place] [address] Associate Publisher: Jacob Campos MD MCV (RBC) [Entitic vol] 90.4 fL Normal 80-100 [facility] Comment on above: Performed By: #### C DP, CMPX, SED, LAC #### [facility] [address] [place] [address] Associate Publisher: Jacob Campos MD Monocytes (Bld) [#/Vol] 0.50 10*3/uL Normal 0.0-1.0 [facility] Comment on above: Performed By: #### C DP, CMPX, SED, LAC #### [facility] [address] [place] [address] Associate Publisher: Jacob Campos MD Monocytes/100 WBC (Bld) 12 % High 4-8 [facility] Comment on above: Performed By: #### C DP, CMPX, SED, LAC #### [facility] [address] [place] [address] Associate Publisher: Jacob Campos MD Neutrophil (Seg) 65 % Normal 47-75 [facility] Comment on above: Performed By: #### C DP, CMPX, SED, LAC #### [facility] [address] [place] [address] Associate Publisher: Jacob Campos MD Platelets (Bld) [#/Vol] 378 10*3/uL Normal 140-450 [facility] Comment on above: Performed By: #### C DP, CMPX, SED, LAC #### [facility] [address] [place] [address] Associate Publisher: Jacob Campos MD RBC (Bld) [#/Vol] 3.70 10*6/uL Low 4.0-5.2 [facility] Comment on above: Performed By: #### C DP, CMPX, SED, LAC #### [facility] [address] [place] [address] Associate Publisher: Jacob Campos MD WBC (Bld) [#/Vol] 4.3 10*3/uL Normal 3.5-11.0 [facility] Comment on above: Performed By: #### C DP, CMPX, SED, LAC #### [facility] [address] [place] [address] Associate Publisher: Jacob Campos MD Comp Metabolic Pr/rfx MGon 0 11-22-2021 (cont.) Normal [facility] Comment on above: Result Comment: Aver age GFR for 60-69 years old: 85 mL/min/1.73sq m Chronic Kidney Disease: <60 mL/min/1.73sq m Kidney failure: <15 mL/min/1.73sq m eGFR calculated using average adult body mass. Additional eGFR calculator available at: http://www.[employer]/multiple_crcl_2012.htm Performed By: #### C DP, CMPX, SED, LAC #### [facility] [address] [place] [address] Associate Publisher: Jacob Campos MD Albumin [Mass/Vol] 3.5 g/dL Normal 3.5-5.2 [facility] Comment on above: Performed By: #### C DP, CMPX, SED, LAC #### [facility] [address] [place] [address] Associate Publisher: Jaocb Campos MD Alkaline Phos 239 U/L High 35-104 [facility] Comment on above: Performed By: #### C DP, CMPX, SED, LAC #### [facility] [address] [place], [place] [id number] Associate Publisher: Jacob Campos MD ALT [Catalytic activity/Vol] 23 U/L Normal 5-33 [facility] Comment on above: Performed By: #### C DP, CMPX, SED, LAC #### [facility] [address] [place], [place] [id number] Associate Publisher: Jacob Campos MD Anion gap [Moles/Vol] 11 mmol/L Normal 9-17 [facility] Comment on above: Performed By: #### C DP, CMPX, SED, LAC #### [facility] [address] [place] [address] Associate Publisher: Jacob Campos MD AST [Catalytic activity/Vol] 21 U/L Normal <32 [facility] Comment on above: Performed By: #### C DP, CMPX, SED, LAC #### [facility] [address] [place], [place] [id number] Associate Publisher: Jacob Campos MD Bilirubin [Mass/Vol] 0.27 mg/dL Low 0.30-1.20 [facility] Comment on above: Performed By: #### C DP, CMPX, SED, LAC #### [facility] [address] [place] [address] Associate Publisher: Jacob Campos MD BUN/CRE Ratio 22 High 9-20 [facility] Comment on above: Performed By: #### C DP, CMPX, SED, LAC #### [facility] [address] [place] [address] Associate Publisher: Jacob Campos MD Calcium [Mass/Vol] 9.5 mg/dL Normal 8.6-10.4 [facility] Comment on above: Performed By: #### C DP, CMPX, SED, LAC #### [facility] [address] [place], [place] [id number] Associate Publisher: Jacob Campos MD Chloride [Moles/Vol] 102 mmol/L Normal 98-107 [facility] Comment on above: Performed By: #### C DP, CMPX, SED, LAC #### [facility] [address] [place], [place] [id number] Associate Publisher: Jacob Campos MD CO2 [Moles/Vol] 26 mmol/L Normal 20-31 [facility] Comment on above: Performed By: #### C DP, CMPX, SED, LAC #### [facility] [address] [place] [id number] Associate Publisher: Jacob Campos MD Creatinine [Mass/Vol] 0.58 mg/dL Normal 0.50-0.90 [facility] Comment on above: Performed By: #### C DP, CMPX, SED, LAC #### [facility] [address] [place] [id number] Associate Publisher: Jacob Campos MD GFR, Amer >60 Normal >60 [facility] Comment on above: Performed By: #### C DP, CMPX, SED, LAC #### [facility] [address] [place], [place] [id number] Associate Publisher: Jacob Campos MD GFR,non Amer >60 Normal >60 [facility] Comment on above: Performed By: #### C DP, CMPX, SED, LAC #### [facility] [address] [place], [place] [id number] Associate Publisher: Jacob Campos MD Glucose [Mass/Vol] 109 mg/dL High 70-99 [facility] Comment on above: Performed By: #### C DP, CMPX, SED, LAC #### [facility] [address] [place], [place] [id number] Associate Publisher: Jacob Campos MD Potassium [Moles/Vol] 3.7 mmol/L Normal 3.7-5.3 [facility] Comment on above: Performed By: #### C DP, CMPX, SED, LAC #### [facility] [address] [place], [place] [id number] Associate Publisher: Jacob Campos MD Protein [Mass/Vol] 7.0 g/dL Normal 6.4-8.3 [facility] Comment on above: Performed By: #### C DP, CMPX, SED, LAC #### [facility] [address] [place], [place] [id number] Associate Publisher: Jacob Campos MD Sodium [Moles/Vol] 139 mmol/L Normal 135-144 [facility] Comment on above: Performed By: #### C DP, CMPX, SED, LAC #### [facility] [address] [place], [place] [id number] Associate Publisher: Jacob Campos MD Urea nitrogen [Mass/Vol] 13 mg/dL Normal 8-23 [facility] Comment on above: Performed By: #### C DP, CMPX, SED, LAC #### [facility] [address] [place], [place] [id number] Associate Publisher: Jacob Campos MD Lactic Acidon 11-22-2021 Lactate [Moles/Vol] 0.7 mmol/L Normal 0.5-2.2 [facility] Comment on above: Performed By: #### C DP, CMPX, SED, LAC #### [facility] [address] [place], [place] [id number] Associate Publisher: Jacob Campos MD Sedimentation Rateon 022 Sedimentation Rate 48 mm High 0-30 [facility] Comment on above: Performed By: #### C DP, CMPX, SED, LAC #### [facility] [address] [place], [place] [id number] Associate Publisher: Jacob Campos MD Urinalysis, Routineon 2021 Bilirubin, SemiQt,Ur Negative Normal NEG [facility] Comment on above: Performed By: #### U A #### [facility] [address] [place] [address] Associate Publisher: Jacob Campos MD Blood, Urine Negative Normal NEG [facility] Comment on above: Performed By: #### U A #### [facility] [address] [place] [address] Associate Publisher: Jacob Campos MD Clarity (U) Clear Normal CLEAR [facility] Comment on above: Performed By: #### U A #### [facility] [address] [place] [address] Associate Publisher: Jacob Campos MD Color (U) Yellow Normal YEL [facility] Comment on above: Performed By: #### U A #### [facility] [address] [place] [id number] Associate Publisher: Jacob Campos MD Comment Normal [facility] Comment on above: Performed By: #### U A #### [facility] [address] [place] [address] Associate Publisher: Jacob Campos MD Glucose Ql (U) Negative Normal NEG [facility] Comment on above: Performed By: #### U A #### [facility] [address] [place] [address] Associate Publisher: Jacob Campos MD Ketones Ql (U) Negative Normal NEG [facility] Comment on above: Performed By: #### U A #### [facility] [address] [place] [address] Associate Publisher: Jacob Campos MD Leukocyte esterase Test strip Ql (U) Negative Normal NEG [facility] Comment on above: Performed By: #### U A #### [facility] [address] [place] [address] Associate Publisher: Jacob Campos MD Nitrite,Ur Negative Normal NEG [facility] Comment on above: Performed By: #### U A #### [facility] [address] [place] [id number] Associate Publisher: Jacob Campos MD PH,Ur 6.5 Normal 5.0-8.0 [facility] Comment on above: Performed By: #### U A #### [facility] [address] [place] [address] Associate Publisher: Jacob Campos MD Protein Ql (U) Negative Normal NEG [facility] Comment on above: Performed By: #### U A #### [facility] [address] [place] [address] Associate Publisher: Jacob Campos MD Spec. [place],Ur 1.015 Normal 1.005-1.03 0 [facility] Comment on above: Performed By: #### U A #### [facility] [address] [place] [address] Associate Publisher: Jacob Campos MD Urobilinogen,Ur Normal Normal NORM [facility] Comment on above: Performed By: #### U A #### [facility] [address] [place] [address] Associate Publisher: Jacob Campos MD CBC with Diffon 11-21-2021 Abs.Imm.Granulocyte NOT REPORTED Normal 0.00-0.30 [facility] Comment on above: Performed By: #### C DP, CMPX, SED, LAC #### [facility] [address] [place] [address] Associate Publisher: Jacob Campos MD Immature Granulocyte NOT REPORTED Normal 0 [facility] Comment on above: Performed By: #### C DP, CMPX, SED, LAC #### [facility] [address] [place] [address] Associate Publisher: Jacob Campos MD MPV NOT REPORTED Normal 6.0-12.0 [facility] Comment on above: Performed By: #### C DP, CMPX, SED, LAC #### [facility] [address] [place], [place] [id number] Associate Publisher: Jacob Campos MD NRBC Automated NOT REPORTED Normal [facility] Comment on above: Performed By: #### C DP, CMPX, SED, LAC #### [facility] [address] [place], [place] [id number] Associate Publisher: Jacob Campos MD Platelet Comment NOT REPORTED Normal [facility] Comment on above: Performed By: #### C DP, CMPX, SED, LAC #### [facility] [address] [place] [address] Associate Publisher: Jacob Campos MD RBC morphology finding Nom (Bld) NOT REPORTED Normal [facility] Comment on above: Performed By: #### C DP, CMPX, SED, LAC #### [facility] [address] [place] [address] Associate Publisher: Jacob Campos MD WBC Morphology NOT REPORTED Normal [facility] Comment on above: Performed By: #### C DP, CMPX, SED, LAC #### [facility] [address] [place], [place] [id number] Associate Publisher: Jacob Cmapos MD Comp Metabolic Pr/rfx MGon 0 --2021 Albumin/Glob Ratio NOT REPORTED Normal 1.0-2.5 [facility] Comment on above: Performed By: #### C DP, CMPX, SED, LAC #### [facility] [address] [place], [place] [id number] Associate Publisher: Jacob Campos MD Staging: NOT REPORTED Normal [facility] Comment on above: Performed By: #### C DP, CMPX, SED, LAC #### [facility] [address] [place] [address] Associate Publisher: Jacob Campos MD Cult,Urineon 07-08-2021 Cult,Urine Specimen Description .URINE Special Requests NOT REPORTED Culture NO SIGNIFICANT GROWTH Report Status FINAL 07/08/2021 Normal [facility] Comment on above: Performed By: #### U RC #### [facility] [address] [place], [place] [id number] Associate Publisher: Rei Jules MD [facility] [address] [place] [address] Associate Publisher: Jacob Campos MD CBC Auto DifferentialOrdered By: Mayra Michel on 07-07-2021 Absolute Eos # 0.70 High [employer] Phone: Absolute Immature Granulocyte NOT REPORTED [employer] Phone: Absolute Lymph # 0.40 Low [employer] Phone: Absolute [place] # 0.50 [employer] Phone: Basophils (Bld) [#/Vol] 0.00 10*3/uL [employer] Phone: Basophils/100 WBC (Bld) 1 % 0 - 2 % [employer] Phone: Differential Type YES [employer] Phone: Eosinophils/100 WBC (Bld) 14 % High 0 - 5 % [employer] Phone: Hematocrit (Bld) [Volume fraction] 40.1 % 36 - 46 % [employer] Phone: Hemoglobin.gastrointe stinal spec 1 Ql (Stl) 13.8 g/dL 12.0 - 16.0 g/dL [employer] Phone: Immature Granulocytes NOT REPORTED 0 % M [employer] Phone: Interpretation and review of laboratory results Abnormal [employer] Phone: Lymphocytes/100 WBC (Bld) 8 % Low 15 - 40 % [employer] Phone: [phone] MCH (RBC) [Entitic mass] 30.7 pg 26 - 34 pg [employer] Phone: MCHC (RBC) [Mass/Vol] 34.5 g/dL 31 - 3 7 g/dL [employer] Phone: MCV (RBC) [Entitic vol] 89.1 fL 80 - 100 fL [employer] Phone: Monocytes/100 WBC (Bld) 10 % High 4 - 8 % [employer] Phone: NRBC Automated NOT REPORTED per 100 WBC [employer] Phone: Platelet distribution width (Bld) [Ratio] 13.0 % 12.1 - 15.2 % [employer] Phone: Platelet Estimate NOT REPORTED [employer] Phone: Platelet mean volume (Bld) [Entitic vol] NOT REPORTED 6.0 - 12.0 fL [employer] Phone: Platelets (Bld) [#/Vol] 157 10*3/uL [employer] Phone: RBC (Bld) [#/Vol] 4.50 10*6/uL 4.0 - 5.2 m/uL [employer] Phone: RBC (Bld) [#/Vol] NOT REPORTED [employer] Phone: Segmented neutrophils/100 WBC (Bld) 67 % 47 - 75 % [employer] Phone: Segs Absolute 3.40 [employer] Phone: WBC (Bld) [#/Vol] 5.1 10*3/uL [employer] Phone: WBC (Bld) [#/Vol] NOT REPORTED [facility] [employer] Phone: [facility] Work Phone: CBC with Diffon 07-07-2021 Abs. Basophil 0.00 k/uL Normal 0.0-0.2 [facility] Comment on above: Performed By: #### C DP, CP #### [facility] [address] [place] [address] Associate Publisher: Jacob Campos MD Abs.Neutrophil (Seg) 3.40 k/uL Normal 2.5-7.0 [facility] Comment on above: Performed By: #### C DP, CP #### [facility] [address] [place] [address] Associate Publisher: Jacob Campos MD Auto Diff Performed YES Normal [facility] Comment on above: Performed By: #### C DP, CP #### [facility] [address] [place], [place] [id number] Associate Publisher: Jacob Campos MD Basophils/100 WBC (Bld) 1 % Normal 0-2 [facility] Comment on above: Performed By: #### C DP, CP #### [facility] [address] [place] [address] Associate Publisher: Jacob Campos MD Eosinophils (Bld) [#/Vol] 0.70 10*3/uL High 0.0-0.4 [facility] Comment on above: Performed By: #### C DP, CP #### [facility] [address] [place] [id number] Associate Publisher: Jacob Campos MD Eosinophils/100 WBC (Bld) 14 % High 0-5 [facility] Comment on above: Performed By: #### C DP, CP #### [facility] [address] [place] [address] Associate Publisher: Jacob Campos MD Erythrocyte distribution width (RBC) [Ratio] 13.0 % Normal 12.1-15.2 [facility] Comment on above: Performed By: #### C DP, CP #### [facility] [address] [place] [address] Associate Publisher: Jacob Campos MD Hematocrit (Bld) [Volume fraction] 40.1 % Normal 36-46 [facility] Comment on above: Performed By: #### C DP, CP #### [facility] [address] [place] [id number] Associate Publisher: Jacob Campos MD Hemoglobin (Bld) [Mass/Vol] 13.8 g/dL Normal 12.0-16.0 [facility] Comment on above: Performed By: #### C DP, CP #### [facility] [address] [place] [id number] Associate Publisher: Jacob Campos MD Lymphocytes (Bld) [#/Vol] 0.40 10*3/uL Low 1.0-4.8 [facility] Comment on above: Performed By: #### C DP, CP #### [facility] [address] [place] [address] Associate Publisher: Jacob Campos MD Lymphocytes/100 WBC (Bld) 8 % Low 15-40 [facility] Comment on above: Performed By: #### C DP, CP #### [facility] [address] [place] [address] Associate Publisher: Jacob Campos MD MCH (RBC) [Entitic mass] 30.7 pg Normal 26-34 [facility] Comment on above: Performed By: #### C DP, CP #### [facility] [address] [place] [address] Associate Publisher: Jacob Campos MD MCHC (RBC) [Mass/Vol] 34.5 g/dL Normal 31-37 [facility] Comment on above: Performed By: #### C DP, CP #### [facility] [address] [place] [address] Associate Publisher: Jacob Campos MD MCV (RBC) [Entitic vol] 89.1 fL Normal 80-100 [facility] Comment on above: Performed By: #### C DP, CP #### [facility] [address] [place] [address] Associate Publisher: Jacob Campos MD Monocytes (Bld) [#/Vol] 0.50 10*3/uL Normal 0.0-1.0 [facility] Comment on above: Performed By: #### C DP, CP #### [facility] [address] [place] [address] Associate Publisher: Jacob Campos MD Monocytes/100 WBC (Bld) 10 % High 4-8 [facility] Comment on above: Performed By: #### C DP, CP #### [facility] [address] [place] [address] Associate Publisher: Jacob Campos MD Neutrophil (Seg) 67 % Normal 47-75 [facility] Comment on above: Performed By: #### C DP, CP #### [facility] [address] [place] [address] Associate Publisher: Jacob Campos MD Platelets (Bld) [#/Vol] 157 10*3/uL Normal 140-450 [facility] Comment on above: Performed By: #### C DP, CP #### [facility] [address] [place] [address] Associate Publisher: Jacob Campos MD RBC (Bld) [#/Vol] 4.50 10*6/uL Normal 4.0-5.2 [facility] Comment on above: Performed By: #### C DP, CP #### [facility] [address] [place], [place] [id number] Associate Publisher: Jacob Campos MD WBC (Bld) [#/Vol] 5.1 10*3/uL Normal 3.5-11.0 [facility] Comment on above: Performed By: #### C DP, CP #### [facility] [address] [place], [place] [id number] Associate Publisher: Jacob Campos MD Abs.Imm.Granulocyte NOT REPORTED Normal 0.00-0.30 [facility] Comment on above: Performed By: #### C DP, CP #### [facility] [address] [place] [id number] Associate Publisher: Jacob Campos MD Immature Granulocyte NOT REPORTED Normal 0 [facility] Comment on above: Performed By: #### C DP, CP #### [facility] [address] [place] [address] Associate Publisher: Jacob Campos MD MPV NOT REPORTED Normal 6.0-12.0 [facility] Comment on above: Performed By: #### C DP, CP #### [facility] [address] [place] [id number] Associate Publisher: Jacob Campos MD NRBC Automated NOT REPORTED Normal [facility] Comment on above: Performed By: #### C DP, CP #### [facility] [address] [place] [address] Associate Publisher: Jacob Campos MD Platelet Estimate NOT REPORTED Normal [facility] Comment on above: Performed By: #### C DP, CP #### [facility] [address] [place] [id number] Associate Publisher: Jacob Campos MD RBC morphology finding Nom (Bld) NOT REPORTED Normal [facility] Comment on above: Performed By: #### C DP, CP #### [facility] [address] [place], [place] [id number] Associate Publisher: Jacob Campos MD WBC Morphology NOT REPORTED Normal [facility] Comment on above: Performed By: #### C DP, CP #### [facility] [address] [place], [place] [id number] Associate Publisher: Jacob Campos MD Comp Metabolic Profon 2020 (cont.) Normal [facility] Comment on above: Result Comment: Aver age GFR for 60-69 years old: 85 mL/min/1.73sq m Chronic Kidney Disease: <60 mL/min/1.73sq m Kidney failure: <15 mL/min/1.73sq m eGFR calculated using average adult body mass. Additional eGFR calculator available at: http://www.[employer]/multiple_crcl_2011.htm Performed By: #### C MIAN, CP #### [facility] [address] [place], [place] [id number] Associate Publisher: Jacob Campos MD Albumin [Mass/Vol] 3.9 g/dL Normal 3.5-5.2 [facility] Comment on above: Performed By: #### C DP, CP #### [facility] [address] [place], [place] [id number] Associate Publisher: Jacob Campos MD Alkaline Phos 94 U/L Normal 35-104 [facility] Comment on above: Performed By: #### C DP, CP #### [facility] [address] [place], [place] [id number] Associate Publisher: Jacob Campos MD ALT [Catalytic activity/Vol] 31 U/L Normal 5-33 [facility] Comment on above: Performed By: #### C DP, CP #### [facility] [address] [place], [place] [id number] Associate Publisher: Jacob Campos MD Anion gap [Moles/Vol] 10 mmol/L Normal 9-17 [facility] Comment on above: Performed By: #### C DP, CP #### [facility] [address] [place], [place] [id number] Associate Publisher: Jacob Campos MD AST [Catalytic activity/Vol] 28 U/L Normal <32 [facility] Comment on above: Performed By: #### C DP, CP #### [facility] [address] [place], [place] [id number] Associate Publisher: Jacob Campos MD Bilirubin [Mass/Vol] 0.46 mg/dL Normal 0.30-1.20 [facility] Comment on above: Performed By: #### C DP, CP #### [facility] [address] [place], [place] [id number] Associate Publisher: Jacob Campos MD BUN/CRE Ratio 27 High 9-20 [facility] Comment on above: Performed By: #### C DP, CP #### [facility] [address] [place], [place] [id number] Associate Publisher: Jacob Campos MD Calcium [Mass/Vol] 9.7 mg/dL Normal 8.6-10.4 [facility] Comment on above: Performed By: #### C DP, CP #### [facility] [address] [place], [place] [id number] Associate Publisher: Jacob Campos MD Chloride [Moles/Vol] 107 mmol/L Normal 98-107 [facility] Comment on above: Performed By: #### C DP, CP #### [facility] [address] [place], [place] [id number] Associate Publisher: Jacob Campos MD CO2 [Moles/Vol] 25 mmol/L Normal 20-31 [facility] Comment on above: Performed By: #### C DP, CP #### [facility] [address] [place], [place] [id number] Associate Publisher: Jacob Campos MD Creatinine [Mass/Vol] 0.60 mg/dL Normal 0.50-0.90 [facility] Comment on above: Performed By: #### C DP, CP #### [facility] [address] [place], [place] [id number] Associate Publisher: Jacob Campos MD GFR, Amer >60 Normal >60 [facility] Comment on above: Performed By: #### C DP, CP #### [facility] [address] [place] [address] Associate Publisher: Jacob Campos MD GFR,non Amer >60 Normal >60 [facility] Comment on above: Performed By: #### C DP, CP #### [facility] [address] [place] [address] Associate Publisher: Jacob Campos MD Glucose [Mass/Vol] 122 mg/dL High 70-99 [facility] Comment on above: Performed By: #### C DP, CP #### [facility] [address] [place] [address] Associate Publisher: Jacob Campos MD Potassium [Moles/Vol] 3.8 mmol/L Normal 3.7-5.3 [facility] Comment on above: Performed By: #### C DP, CP #### [facility] [address] [place] [address] Associate Publisher: Jacob Campos MD Protein [Mass/Vol] 6.9 g/dL Normal 6.4-8.3 [facility] Comment on above: Performed By: #### C DP, CP #### [facility] [address] [place] [address] Associate Publisher: Jacob Campos MD Sodium [Moles/Vol] 142 mmol/L Normal 135-144 [facility] Comment on above: Performed By: #### C DP, CP #### [facility] [address] [place], [place] [id number] Associate Publisher: Jacob Campos MD Urea nitrogen [Mass/Vol] 16 mg/dL Normal 8-23 [facility] Comment on above: Performed By: #### C DP, CP #### [facility] [address] [place], [place] [id number] Associate Publisher: Jacob Campos MD Albumin/Glob Ratio NOT REPORTED Normal 1.0-2.5 [facility] Comment on above: Performed By: #### C DP, CP #### [facility] [address] [place], [place] [phone] Associate Publisher: Jacob Campos MD Staging: NOT REPORTED Normal [facility] Comment on above: Performed By: #### C DP, CP #### [facility] [address] [place] [address] Associate Publisher: Jacob Campos MD Comprehensive Metabolic Pane lOrdered By: Mayra Michel on 07-07-2021 Albumin [Mass/Vol] 3.9 g/dL 3.5 - 5.2 g/dL [employer] Phone: Albumin/Globulin Ratio NOT REPORTED [employer] Phone: ALP (Bld) [Catalytic activity/Vol] 94 U/L 35 - 104 U/L [employer] Phone: ALT [Catalytic activity/Vol] 31 U/L 5 - 33 U/L [employer] Phone: Anion gap [Moles/Vol] 10 mmol/L 9 - 17 mmol/L [employer] Phone: AST [Catalytic activity/Vol] 28 U/L <32 [employer] Phone: Bilirubin [Mass/Vol] 0.46 mg/dL 0.30 - 1.20 mg/dL [employer] Phone: Calcium [Mass/Vol] 9.7 mg/dL 8.6 - 10. 4 mg/dL [employer] Phone: Chloride [Moles/Vol] 107 mmol/L 98 - 10 7 mmol/L [employer] Phone: CO2 [Moles/Vol] 25 mmol/L 20 - 31 mmol/L [employer] Phone: Creatinine [Mass/Vol] 0.6 mg/dL 0.50 - 0.90 mg/dL [employer] Phone: Free PSA/Total PSA [Mass fraction] 6.9 g/dL 6.4 - 8.3 g/dL [employer] Phone: GFR >60 >60 mL/min [employer] Phone: GFR Non- >60 >60 mL/min [employer] Phone: GFR/1.73 sq M.predicted MDRD (S/P/Bld) [Vol rate/Area] [employer] Phone: Comment on above: Average GFR for 60-6 9 years old: 85 mL/min/1.73sq m Chronic Kidney Disease: <60 mL/min/1.73sq m Kidney failure: <15 mL/min/1.73sq m eGFR calculated using average adult body mass. Additional eGFR calculator available at: http://www.[employer]/multiple_crcl_2012.htm GFR/1.73 sq M.predicted MDRD (S/P/Bld) [Vol rate/Area] NOT REPORTED [employer] Phone: Glucose [Mass/Vol] 122 mg/dL High 70 - 99 mg/dL [employer] Phone: Interpretation and review of laboratory results Abnormal [employer] Phone: Potassium [Moles/Vol] 3.8 mmol/L 3.7 - 5.3 mmol/L [employer] Phone: Sodium [Moles/Vol] 142 mmol/L 135 - 144 mmol/L [facility] Phone: Urea nitrogen (BldV) [Mass/Vol] 16 mg/dL 8 - 23 mg/dL [facility] Phone: Urea nitrogen/Creatinine (Bld) [Mass ratio] 27 High [employer] Phone: [facility] Phone: Microscopic UrinalysisOrdere d By: Mayra Michel on 07-07-2021 - [employer] Phone: Amorphous, UA NOT REPORTED None [employer] Phone: Bacteria, UA 2+ Abnormal None [employer] Phone: Casts UA NOT REPORTED /LPF [facility] Work Phone: Crystals, UA NOT REPORTED None /HPF [facility] Phone: Epithelial Cells UA 5 TO 10 /HPF [facility] Phone: Interpretation and review of laboratory results Abnormal [facility] Phone: Mucus, UA 1+ Abnormal None [employer] Phone: Other Observations UA NOT REPORTED NOT REQ. [facility] [employer] Work Phone: RBC, UA 5 TO 10 [facility] Work Phone: Renal Epithelial, UA NOT REPORTED 0 /HPF [facility] [employer] Work Phone: Trichomonas, UA NOT REPORTED None [facility] Phone: WBC, UA 2 TO 5 0 /HPF [facility] Phone: Yeast, UA NOT REPORTED None [facility] Phone: [employer] Phone: UrinalysisOrdered By: Olamide Michel on 07-07-2021 Bilirubin Urine Negative NEGATIVE [employer] Phone: Color, UA YELLOW YELLOW [employer] Phone: Glucose, Ur Negative NEGATIVE [employer] Phone: Interpretation and review of laboratory results Abnormal [employer] Phone: Ketones Ql (U) Negative NEGATIVE [employer] Phone: Leukocyte esterase Test strip Ql (U) 1+ Abnormal NEGATIVE [employer] Phone: Nitrite, Urine Negative NEGATIVE [employer] Phone: pH, UA 6.0 [employer] Phone: Protein, UA TRACE Abnormal NEGATIVE [employer] Phone: Specific [place], UA 1.020 [employer] Phone: Turbidity UA CLEAR CLEAR [employer] Phone: Urinalysis Comments [employer] Phone: Urine Hgb TRACE Abnormal NEGATIVE [employer] Phone: Urobilinogen, Urine Normal Normal [employer] Phone: [employer] Phone: Urinalysis, Routineon 2020 Bilirubin, SemiQt,Ur Negative Normal NEG [facility] Comment on above: Performed By: #### U MICAO, UA #### [facility] [address] [place] [address] Associate Publisher: Jacob Campos MD Blood, Urine TRACE Abnormal NEG [facility] Comment on above: Performed By: #### U MICAO, UA #### [facility] [address] [place], [place] [phone] Associate Publisher: Jacob Campos MD Clarity (U) CLEAR Normal CLEAR [facility] Comment on above: Performed By: #### U MICAO, UA #### [facility] [address] [place] [address] Associate Publisher: Jacob Campos MD Color (U) YELLOW Normal YEL [facility] Comment on above: Performed By: #### U MICAO, UA #### [facility] [address] [facility] [place] [phone] Associate Publisher: Jacob Campos MD Comment Normal [facility] Comment on above: Performed By: #### U MICAO, UA #### [facility] [address] [place], [place] [id number] Associate Publisher: Jacob Campos MD Glucose Ql (U) Negative Normal NEG [facility] Comment on above: Performed By: #### U MICAO, UA #### [facility] [address] [place], [place] [id number] Associate Publisher: Jacob Campos MD Ketones Ql (U) Negative Normal NEG [facility] Comment on above: Performed By: #### U MICAO, UA #### [facility] [address] [facility] [place] [id number] Associate Publisher: Jacob Campos MD Leukocyte esterase Test strip Ql (U) 1+ Abnormal NEG [facility] Comment on above: Performed By: #### U MICAO, UA #### [facility] [address] [facility] [place] [id number] Associate Publisher: Jacob Campos MD Nitrite,Ur Negative Normal NEG [facility] Comment on above: Performed By: #### U MICAO, UA #### [facility] [address] [facility] [place] [id number] Associate Publisher: Jacob Campos MD PH,Ur 6.0 Normal 5.0-8.0 [facility] Comment on above: Performed By: #### U EULALIAO, UA #### [facility] [address] [place] [address] Associate Publisher: Jacob Campos MD Protein Ql (U) TRACE Abnormal NEG [facility] Comment on above: Performed By: #### U EULALIAO, UA #### [facility] [address] [place] [address] Associate Publisher: Jacob Campos MD Spec. [place],Ur 1.020 Normal 1.005-1.03 0 [facility] Comment on above: Performed By: #### U EULALIAO, UA #### [facility] [address] [place] [address] Associate Publisher: Jacob Campos MD Urobilinogen,Ur Normal Normal NORM [facility] Comment on above: Performed By: #### U EULALIAO, UA #### [facility] [address] [place], [place] [id number] Associate Publisher: Jacob Campos MD Urinalysis,Microon 1 ----- Normal [facility] Comment on above: Performed By: #### U EULALIAO, UA #### [facility] [address] [place] [address] Associate Publisher: Jacob Campos MD Bacteria 2+ Abnormal NONE [facility] Comment on above: Performed By: #### U EULALIAO, UA #### [facility] [address] [place], [place] [id number] Associate Publisher: Jacob Campos MD Epithelial cells LM Ql (Urine sed) 5 TO 10 Normal [facility] Comment on above: Performed By: #### U MICAO, UA #### [facility] [address] [place], [place] [id number] Associate Publisher: Jacob Campos MD Mucus Strands 1+ Abnormal NONE [facility] Comment on above: Performed By: #### U RICH, UA #### [facility] [address] [place] [address] Associate Publisher: Jacob Campos MD Urine RBC's 5 TO 10 Normal 0-2 [facility] Comment on above: Performed By: #### U EULALIAO, UA #### [facility] [address] [place] [address] Associate Publisher: Jacob Campos MD Urine WBC's 2 TO 5 Normal 0 [facility] Comment on above: Performed By: #### U EULALIAO, UA #### [facility] [address] [place] [address] Associate Publisher: Jacob Campos MD Amorphous sediment LM Ql (Urine sed) NOT REPORTED Normal [facility] Comment on above: Performed By: #### U EULALIAO, UA #### [facility] [address] [place] [address] Associate Publisher: Jacob Campos MD Casts NOT REPORTED Normal [facility] Comment on above: Performed By: #### U EULALIAO, UA #### [facility] [address] [place] [address] Associate Publisher: Jacob Campos MD Crystals LM Nom (Urine sed) NOT REPORTED Normal [facility] Comment on above: Performed By: #### U EULALIAO, UA #### [facility] [address] [place] [address] Associate Publisher: Jacob Campos MD Epithelial, Renal NOT REPORTED Normal 0 [facility] Comment on above: Performed By: #### U EULALIAO, UA #### [facility] [address] [place] [address] Associate Publisher: Jacob Campos MD Other Observations NOT REPORTED Normal NREQ [facility] Comment on above: Performed By: #### U EULALIAO, UA #### [facility] [address] [place] [address] Associate Publisher: Jacob Campos MD Trichomonas NOT REPORTED Normal NONE [facility] Comment on above: Performed By: #### U EULALIAO, UA #### [facility] [address] [place] [address] Associate Publisher: Jacob Campos MD Yeast NOT REPORTED Normal NONE [facility] Comment on above: Performed By: #### U EULALIAO, UA #### [facility] [address] [place] [address] Associate Publisher: Jacob Campos MD BIOAVAILABLE TESTOSTERONE FE MALE, CHILDon 11-29-2019 Albumin [Mass/Vol] 4.3 g/dL Normal 3.6-5.1 [facility] Comment on above: Result Comment: Age and Gender Specific Reference Interval Applied Interpretive Information: Total Testosterone Reference Interval (ng/dL) Premenopausal 9 - 55 Postmenopausal 5 - 32 Bioavailable Testosterone (ng/dL) Postmenopausal 1.5 - 9.4 Free Testosterone Reference Interval (pg/mL) Postmenopausal 0.6 - 3.8 This test was developed and its performance characteristics determined by [facility] ([facility]). It has not been cleared or approved by the U.S. Food and Drug Administration (FDA). The FDA has determined that such clearance or approval is not necessary. This test is used for clinical purposes and should not be regarded as investigational or for research. [facility] is qualified to perform high complexity testing under the Clinical Laboratory Improvement Amendments (CLIA). Test performed at [facility], [address], [address] [place] [address] Asphalt Spreader: Adi Barksdale M.D. CLIA Number [id number] [facility] Accreditation Number [id number] [facility] [address], [place], [place] [address] CLIA No. [id number] CAP Accreditation No. [id number] Asphalt Spreader: Isiah Burr M.D. Performed By: #### 1 000, 4500, 4510, 4520, 99262, 5000, 41331, 39688 #### [facility] Unless Otherwise Noted [address] [address] / COLA #4724/CLIA # [id number] SEX HORM BINDING GLOBULIN 56.3 nmol/L Normal 17.3-125.0 [facility] Comment on above: Performed By: #### 1 000, 4500, 4510, 4520, 73520, 5000, 31636, 88867 #### [facility] Unless Otherwise Noted [address] [address] / COLA #4724/CLIA # [id number] TESTOSTERONE BIO FEMALE 2.9 ng/dL Normal 1.5-9.4 [facility] Comment on above: Performed By: #### 1 000, 4500, 4510, 4520, 85223, 5000, 56672, 29569 #### [facility] Unless Otherwise Noted [address] [address] / COLA #4724/CLIA # [id number] TESTOSTERONE FREE FEMALE 1.3 pg/mL Normal 0.6-3.8 [facility] Comment on above: Performed By: #### 1 000, 4500, 4510, 4520, 27112, 5000, 53906, 76782 #### [facility] Unless Otherwise Noted [address] [address] / COLA #5124/CLIA # [id number] TESTOSTERONE, ULTRASENSITIVE 10 ng/dL Normal 9-55 [facility] Comment on above: Performed By: #### 1 000, 4500, 4510, 4520, 43025, 5000, 27051, 43617 #### [facility] Unless Otherwise Noted [address] [place] [address] / COLA #4724/CLIA # [id number] ADRENOCORTICOTROPIC HORMon 0 11-27-2019 ADRENOCORTICOTROPIC HORM 18.1 PG/ML Normal 7.2-63.3 [facility] Comment on above: Result Comment: Reference range established for normal adult patients, morning blood draw (7-10 AM). Certain synthetic ACTH fragments may interfere with this assay. Test performed at [facility] [address] [place] [address] CLIA Number [id number] [facility] Accreditation Number [id number] ------ Performed By: #### 1 000, 4500, 4510, 4520, 63162, 5000, 15370, 26482 #### [facility] Unless Otherwise Noted [address] [place] [address] / COLA #4724/CLIA # [id number] IGF-1on 11-27-2019 IGF-1 151 NG/ML Normal 43-187 [facility] Comment on above: Result Comment: Test performed at [facility] [address] [place] [address] CLIA Number [id number] [facility] Accreditation Number [id number] ------ Performed By: #### 1 000, 4500, 4510, 4520, 94505, 5000, 19884, 29138 #### [facility] Unless Otherwise Noted [address] [address] / COLA #4724/CLIA # [id number] CORTISOL [place] 11-26-2019 CORTISOL AM 8.6 UG/DL Normal 4.5-22.7 [facility] [place] Comment on above: Performed By: #### 1 000, 4500, 4510, 4520, 83758, 5000, 31098, 14853 #### [facility] Unless Otherwise Noted [address] [address] / COLA #4724/CLIA # [id number] FSHon 11-26-2019 FSH 26.30 mlU/mL Normal [facility] Comment on above: Result Comment: REFE RENCE RANGES FOR FEMALES: OVULATING FEMALE: FOLLICULAR PHASE 1.98-11.6 PEAK 5.14-23.4 LUTEAL PHASE 1.38-9.58 POSTMENOPAUSAL FEMALE 21.5-131 Performed By: #### 4 530, 4540, 4550, 4577 #### [facility] Unless Otherwise Noted [address] [address] / COLA #4724/CLIA # [id number] LHon 11-26-2019 LH 23.00 mIU/ml Normal [facility] Comment on above: Result Comment: REFE RENCE RANGES FOR FEMALE: OVULATING FEMALE: FOLLICULAR PHASE 2.58-12.1 PEAK 27.3-96.9 LUTEAL PHASE 0.83-15.5 POSTMENOPAUSAL FEMALE 13.1-86.5 Performed By: #### 4 530, 4540, 4550, 4577 #### [facility] Unless Otherwise Noted [address] [address] / COLA #4724/CLIA # [id number] PROLACTINon 11-26-2019 PROLACTIN 17.3 ng/ml Normal 2.1-47.6 [facility] Comment on above: Result Comment: IVELISSE ENOPAUSAL FEMALE 2.1 - 47.6 POSTMENOPAUSAL FEMALE 0.0 - 41.4 Performed By: #### 1 000, 4500, 4510, 4520, 64860, 5000, 91131, 85350 #### [facility] Unless Otherwise Noted [address] [address] / COLA #4724/CLIA # [id number] CBC W/AUTO DIFFon 11-25-2019 ABS BASOPHILS 0.0 X10E9/L Normal 0-0.9 [facility] Comment on above: Result Comment: Perf ormed at [facility] [address] [address] Performed By: #### 1 000, 4500, 4510, 4520, 40527, 5000, 68001, 81733 #### [facility] Unless Otherwise Noted [address] [address] / COLA #4724/CLIA # [id number] ABS NEUTROPHILS 2.6 X10E9/L Normal 1.5-6.6 [facility] Comment on above: Performed By: #### 1 000, 4500, 4510, 4520, 29666, 5000, 15406, 36952 #### [facility] Unless Otherwise Noted [address] [address] / COLA #4724/CLIA # [id number] Basophils/100 WBC (Bld) 0.6 % Normal [facility] Comment on above: Performed By: #### 1 000, 4500, 4510, 4520, 24431, 5000, 27269, 80560 #### [facility] Unless Otherwise Noted [address] [address] / COLA #4724/CLIA # [id number] Eosinophils (Bld) [#/Vol] 0.2 10*3/uL Normal 0.0-0.4 [facility] Comment on above: Performed By: #### 1 000, 4500, 4510, 4520, 39373, 5000, 14814, 27823 #### [facility] Unless Otherwise Noted [address] [address] / COLA #4724/CLIA # [id number] Eosinophils/100 WBC (Bld) 3.1 % Normal [facility] Comment on above: Performed By: #### 1 000, 4500, 4510, 4520, 58146, 5000, 88445, 87636 #### [facility] Unless Otherwise Noted [address] [address] / COLA #4724/CLIA # [id number] Erythrocyte distribution width (RBC) [Ratio] 13.3 % Normal 11.5-14.7 [facility] Comment on above: Performed By: #### 1 000, 4500, 4510, 4520, 08988, 5000, 41342, 22822 #### [facility] Unless Otherwise Noted [address] [address] / COLA #4724/CLIA # [id number] Hematocrit (Bld) [Volume fraction] 39.4 % Normal 35-47 [facility] Comment on above: Performed By: #### 1 000, 4500, 4510, 4520, 02792, 5000, 25249, 11262 #### [facility] Unless Otherwise Noted [address] [address] / COLA #4724/CLIA # [id number] Hemoglobin (Bld) [Mass/Vol] 13.3 g/dL Normal 11.7-16.0 [facility] Comment on above: Performed By: #### 1 000, 4500, 4510, 4520, 19065, 5000, 02974, 21027 #### [facility] Unless Otherwise Noted [address] [address] / COLA #4724/CLIA # [id number] Lymphocytes (Bld) [#/Vol] 1.8 10*3/uL Normal 1.0-3.5 [facility] Comment on above: Performed By: #### 1 000, 4500, 4510, 4520, 29049, 5000, 87382, 17972 #### [facility] Unless Otherwise Noted [address] [address] / COLA #4724/CLIA # [id number] Lymphocytes/100 WBC (Bld) 35.0 % Normal [facility] Comment on above: Performed By: #### 1 000, 4500, 4510, 4520, 23802, 5000, 77156, 22932 #### [facility] Unless Otherwise Noted [address] [address] / COLA #4724/CLIA # [id number] MCH (RBC) [Entitic mass] 31.2 pg Normal 26-33.5 [facility] Comment on above: Performed By: #### 1 000, 4500, 4510, 4520, 48009, 5000, 11936, 85049 #### [facility] Unless Otherwise Noted [address] / COLA #4724/CLIA # [id number] MCHC (RBC) [Mass/Vol] 33.7 g/dL Normal 32-36 [facility] Comment on above: Performed By: #### 1 000, 4500, 4510, 4520, 66094, 5000, 60042, 45763 #### [facility] Unless Otherwise Noted [address] [place] [place] [address] / COLA #4724/CLIA # [id number] MCV (RBC) [Entitic vol] 93 fL Normal 81-100 [facility] Comment on above: Performed By: #### 1 000, 4500, 4510, 4520, 30268, 5000, 94517, 53456 #### [facility] Unless Otherwise Noted [address] [address] / COLA #4724/CLIA # [id number] Monocytes (Bld) [#/Vol] 0.5 10*3/uL Normal 0-0.9 [facility] Comment on above: Performed By: #### 1 000, 4500, 4510, 4520, 09473, 5000, 59703, 19442 #### [facility] Unless Otherwise Noted [address] / COLA #4724/CLIA # [id number] Monocytes/100 WBC (Bld) 10.0 % Normal [facility] Comment on above: Performed By: #### 1 000, 4500, 4510, 4520, 77802, 5000, 34543, 57156 #### [facility] Unless Otherwise Noted [address] / COLA #4724/CLIA # [id number] Neutrophils/100 WBC (Bld) 51.3 % Normal [facility] Comment on above: Performed By: #### 1 000, 4500, 4510, 4520, 87192, 5000, 18158, 55895 #### [facility] Unless Otherwise Noted [address] [address] / COLA #4724/CLIA # [id number] Platelet mean volume (Bld) [Entitic vol] 8.8 fL Normal 7-12 [facility] Comment on above: Performed By: #### 1 000, 4500, 4510, 4520, 39560, 5000, 01146, 81186 #### [facility] Unless Otherwise Noted [address] [address] / COLA #4724/CLIA # [id number] Platelets (Bld) [#/Vol] 225 10*3/uL Normal 150-450 [facility] Comment on above: Performed By: #### 1 000, 4500, 4510, 4520, 31433, 5000, 97516, 06976 #### [facility] Unless Otherwise Noted [address] [address] / COLA #4724/CLIA # [id number] RBC (Bld) [#/Vol] 4.25 X10E12/L Normal 3.80-5.20 [facility] Comment on above: Performed By: #### 1 000, 4500, 4510, 4520, 37467, 5000, 17064, 93300 #### [facility] Unless Otherwise Noted [address] [address] / COLA #4724/CLIA # [id number] WBC (Bld) [#/Vol] 5.1 10*3/uL Normal 4.8-10.8 [facility] Comment on above: Performed By: #### 1 000, 4500, 4510, 4520, 73060, 5000, 95644, 51888 #### [facility] Unless Otherwise Noted [address] [address] / COLA #4724/CLIA # [id number] [facility] 11-25-2019 Albumin [Mass/Vol] 4.2 g/dL Normal 3.5-5.0 [facility] Comment on above: Performed By: #### 1 000, 4500, 4510, 4520, 85991, 5000, 54998, 82562 #### [facility] Unless Otherwise Noted [address] [place] [address] / COLA #4724/CLIA # [id number] ALP [Catalytic activity/Vol] 103.0 U/L Normal 38.0-126.0 [facility] Comment on above: Performed By: #### 1 000, 4500, 4510, 4520, 69320, 5000, 90443, 44925 #### [facility] Unless Otherwise Noted [address] [address] / COLA #4724/CLIA # [id number] ALT [Catalytic activity/Vol] 62.0 U/L Normal 13.0-69.0 [facility] Comment on above: Performed By: #### 1 000, 4500, 4510, 4520, 16826, 5000, 92613, 31746 #### [facility] Unless Otherwise Noted [address] [address] / COLA #4724/CLIA # [id number] Anion gap [Moles/Vol] 4.0 mmol/L Low 10.0-15.0 [facility] Comment on above: Performed By: #### 1 000, 4500, 4510, 4520, 67890, 5000, 37466, 15343 #### [facility] [place] Unless Otherwise Noted [address] [address] / COLA #4724/CLIA # [id number] AST [Catalytic activity/Vol] 30.0 U/L Normal 15.0-46.0 [facility] Comment on above: Performed By: #### 1 000, 4500, 4510, 4520, 65171, 5000, 62365, 10500 #### [facility] Unless Otherwise Noted [address] [address] / COLA #4724/CLIA # [id number] Bilirubin Ql (U) 0.50 mg/dL Normal 0.20-1.30 [facility] Comment on above: Performed By: #### 1 000, 4500, 4510, 4520, 27575, 5000, 79470, 55534 #### [facility] Unless Otherwise Noted [address] [address] / COLA #4724/CLIA # [id number] BUN/Cre Ratio 32.9 Ratio High 7.0-27.0 [facility] Comment on above: Performed By: #### 1 000, 4500, 4510, 4520, 99302, 5000, 21228, 25110 #### [facility] Unless Otherwise Noted [address] [address] / COLA #4724/CLIA # [id number] Calcium [Mass/Vol] 9.5 mg/dL Normal 8.4-10.2 [facility] Comment on above: Performed By: #### 1 000, 4500, 4510, 4520, 79933, 5000, 60920, 73413 #### [facility] [place] Unless Otherwise Noted 2099 [facility] [address] [place] [address] / COLA #4724/CLIA # [id number] Chloride [Moles/Vol] 102.0 mmol/L Normal 98.0-107.0 [facility] Comment on above: Performed By: #### 1 000, 4500, 4510, 4520, 14412, 5000, 67485, 39297 #### [facility] [place] Unless Otherwise Noted [address] [address] / COLA #4724/CLIA # [id number] CO2 [Moles/Vol] 31.0 mmol/L High 22.0-30.0 [facility] Comment on above: Performed By: #### 1 000, 4500, 4510, 4520, 36376, 5000, 11027, 29201 #### [facility] Unless Otherwise Noted [address] [address] / COLA #4724/CLIA # [id number] Creatinine [Mass/Vol] 0.7 mg/dL Normal 0.5-1.0 [facility] Comment on above: Performed By: #### 1 000, 4500, 4510, 4520, 08309, 5000, 99251, 55226 #### [facility] Unless Otherwise Noted [address] [address] / COLA #4724/CLIA # [id number] GFR/1.73 sq M predicted among blacks MDRD (S/P/Bld) [Vol rate/Area] 110.1 ml/m1.73 Normal [facility] Comment on above: Performed By: #### 1 000, 4500, 4510, 4520, 69513, 5000, 55694, 81756 #### [facility] [place] Unless Otherwise Noted [address] [place] [address] / COLA #4724/CLIA # [id number] GFR/1.73 sq M predicted among non-blacks MDRD (S/P/Bld) [Vol rate/Area] 91.0 ml/m1.73 Normal [facility] Comment on above: Performed By: #### 1 000, 4500, 4510, 4520, 30126, 5000, 78969, 48250 #### [facility] Unless Otherwise Noted [address] [place] [address] / COLA #4724/CLIA # [id number] GFR/1.73 sq M predicted among non-blacks MDRD (S/P/Bld) [Vol rate/Area] 96.2 ml/m1.73 Normal [facility] Comment on above: Performed By: #### 1 000, 4500, 4510, 4520, 82046, 5000, 83684, 63237 #### [facility] Unless Otherwise Noted [address] [place] [address] / COLA #4724/CLIA # [id number] Glucose [Mass/Vol] 109.0 mg/dL High 74.0-106.0 [facility] Comment on above: Performed By: #### 1 000, 4500, 4510, 4520, 90048, 5000, 28956, 87562 #### [facility] Unless Otherwise Noted [address] [place] [address] / COLA #4724/CLIA # [id number] Potassium [Moles/Vol] 4.3 mmol/L Normal 3.5-5.1 [facility] Comment on above: Performed By: #### 1 000, 4500, 4510, 4520, 75087, 5000, 46699, 66709 #### [facility] Unless Otherwise Noted [address] / COLA #4724/CLIA # [id number] Protein [Mass/Vol] 6.8 g/dL Normal 6.3-8.2 [facility] Comment on above: Performed By: #### 1 000, 4500, 4510, 4520, 58207, 5000, 84078, 13367 #### [facility] Unless Otherwise Noted [address] / COLA #4724/CLIA # [id number] Sodium [Moles/Vol] 137.0 mmol/L Normal 137.0-145 . 0 [facility] Comment on above: Performed By: #### 1 000, 4500, 4510, 4520, 29181, 5000, 35842, 52549 #### [facility] Unless Otherwise Noted [address] [address] / COLA #4724/CLIA # [id number] Urea nitrogen [Mass/Vol] 23.0 mg/dL High 7.0-17.0 [facility] Comment on above: Performed By: #### 1 000, 4500, 4510, 4520, 62165, 5000, 08071, 70365 #### [facility] and [facility] Unless Otherwise Noted [address] [address] / COLA #4724/CLIA # [id number] FT3on 11-25-2019 FT3 4.39 pg/mL Normal 2.71-6.16 [facility] Comment on above: Performed By: #### 1 000, 4500, 4510, 4520, 66688, 5000, 96860, 54417 #### [facility] Unless Otherwise Noted [address] [place] [address] / COLA #4724/CLIA # [id number] FT4on 11-25-2019 Free T4 [Mass/Vol] 0.95 ng/dL Normal 0.64-1.79 [facility] Comment on above: Performed By: #### 1 000, 4500, 4510, 4520, 68469, 5000, 76996, 41081 #### [facility] Unless Otherwise Noted [address] [place] [address] / COLA #4724/CLIA # [id number] TSHon 11-25-2019 TSH Qn 0.35 uIU/ml Low 0.47-4.68 [facility] Comment on above: Performed By: #### 1 000, 4500, 4510, 4520, 18963, 5000, 19062, 51796 #### [facility] Unless Otherwise Noted [address] [place] [address] / COLA #4724/CLIA # [id number] Vital Signs Date Time Vital Sign Value Performing Clinician Facility 05-12-2025 09:35-0400 Body height 167.64 cm Roland [employer] DO Work Phone: [facility] 05-12-2025 09:35-0400 Body mass index (BMI) [Ratio] 26.8 kg/m2 Roland [employer] DO Work Phone: [facility] 05-12-2025 09:35-0400 Body weight 75.29 kg Roland Ball DO Work Phone: [facility] 05-12-2025 09:35-0400 Diastolic blood pressure 89 mm[Hg] Roland Ball DO Work Phone: [facility] 05-12-2025 09:35-0400 Heart rate 71 /min Roland Ball DO Work Phone: [facility] 05-12-2025 09:35-0400 Respiratory rate 12 /min Roland Ball DO Work Phone: [facility] 05-12-2025 09:35-0400 Systolic blood pressure 139 mm[Hg] Roland Ball DO Work Phone: [facility] 01-05-2025 11:10-0500 Body height 167.64 cm [facility] [facility] 01-05-2025 11:10-0500 Body mass index (BMI) [Ratio] 26.4 kg/m2 [facility] 01-05-2025 11:10-0500 Body weight 74.38 kg [facility] 01-05-2025 11:10-0500 Diastolic blood pressure 84 mm[Hg] [facility] 01-05-2025 11:10-0500 Diastolic blood pressure 89 mm[Hg] South Dixon MD Work Phone: [facility] 01-05-2025 11:10-0500 Heart rate 91 /min [facility] 01-05-2025 11:10-0500 Respiratory rate 12 /min [facility] 01-05-2025 11:10-0500 Systolic blood pressure 146 mm[Hg] [facility] 01-05-2025 11:10-0500 Systolic blood pressure 139 mm[Hg] South Dixon MD Work Phone: [facility] 11-26-2024 09:20-0500 Body height 167.64 cm [facility] 11-26-2024 09:20-0500 Body mass index (BMI) [Ratio] 25.4 kg/m2 [facility] 11-26-2024 09:20-0500 Body weight 71.66 kg [facility] 11-26-2024 09:20-0500 Diastolic blood pressure 91 mm[Hg] [facility] 11-26-2024 09:20-0500 Heart rate 97 /min [facility] 11-26-2024 09:20-0500 Respiratory rate 12 /min [facility] 11-26-2024 09:20-0500 Systolic blood pressure 159 mm[Hg] [facility] 08-05-2024 11:44-0400 Body height 167.6 cm Henry Ramos MD Work Phone: [facility] 08-05-2024 11:44-0400 Body mass index (BMI) [Ratio] 23.88 kg/m2 Henry Ramos MD Work Phone: [facility] 08-05-2024 11:44-0400 Body temperature 99 [degF] Henry Ramos MD Work Phone: [facility] 08-05-2024 11:44-0400 Body weight 67.1 kg Henry Ramos MD Work Phone: [facility] 08-05-2024 11:44-0400 Diastolic blood pressure 75 mm[Hg] Henry Ramos MD Work Phone: [facility] 08-05-2024 11:44-0400 Heart rate 81 /min Henry Ramos MD Work Phone: [facility] 08-05-2024 11:44-0400 SaO2% (BldA) [Mass fraction] 97 % Henry Ramos MD Work Phone: [facility] 08-05-2024 11:44-0400 Systolic blood pressure 141 mm[Hg] Henry Ramos MD Work Phone: [facility] 06-29-2024 11:36-0400 Body height 167.64 cm [facility] 06-29-2024 11:36-0400 Body mass index (BMI) [Ratio] 22.6 kg/m2 [facility] 06-29-2024 11:36-0400 Body weight 63.67 kg [facility] 06-29-2024 11:36-0400 Diastolic blood pressure 81 mm[Hg] [facility] 06-29-2024 11:36-0400 Heart rate 86 /min [facility] 06-29-2024 11:36-0400 Respiratory rate 12 /min [facility] 06-29-2024 11:36-0400 Systolic blood pressure 135 mm[Hg] [facility] 05-04-2024 13:01-0400 Body height 167.64 cm [facility] 05-04-2024 13:01-0400 Body mass index (BMI) [Ratio] 22.6 kg/m2 [facility] 05-04-2024 13:01-0400 Body weight 63.5 kg [facility] 05-04-2024 13:01-0400 Diastolic blood pressure 78 mm[Hg] [facility] 05-04-2024 13:01-0400 Heart rate 88 /min [facility] 05-04-2024 13:01-0400 SaO2% (BldA) [Mass fraction] 98 % [facility] 05-04-2024 13:01-0400 Systolic blood pressure 136 mm[Hg] [facility] 09-29-2023 10:33-0500 Body height 167.6 cm South Saba [employer] Work Phone: [facility] 09-29-2023 10:33-0500 Body weight 62.14 kg South Saba DO Work Phone: [facility] 09-12-2023 10:00-0400 Body height 167.64 cm Roland Ball Other [employer] [facility] [employer] Other 09-12-2023 10:00-0400 Body mass index (BMI) [Ratio] 23.05 kg/m2 Roland Ball Other [employer] [facility] [employer] Other 09-12-2023 10:00-0400 Body weight 64.77 kg Roland Ball Other [employer] Other 09-12-2023 10:00-0400 Diastolic blood pressure 75 mm[Hg] Roland Ball Other [employer] Other 09-12-2023 10:00-0400 Respiratory rate 12 /min Roland Ball Other [employer] Other 09-12-2023 10:00-0400 Systolic blood pressure 131 mm[Hg] Roland Ball Other [employer] Other 08-29-2023 10:55-0400 Body height 167.6 cm Rachel Ricardod PMO CONSULTANT.AIRCRAFT INSPECTION RECORD CLERK Work Phone: [facility] 08-29-2023 10:55-0400 Body temperature 98.01 [degF] Rachel Angelia PMO CONSULTANT.AIRCRAFT INSPECTION RECORD CLERK Work Phone: [facility] 08-29-2023 10:55-0400 Body weight 66.68 kg Rachel Linnkard PMO CONSULTANT.AIRCRAFT INSPECTION RECORD CLERK Work Phone: [facility] 08-29-2023 10:55-0400 Diastolic blood pressure 78 mm[Hg] Rachel Angelia PMO CONSULTANT.AIRCRAFT INSPECTION RECORD CLERK Work Phone: [facility] 08-29-2023 10:55-0400 Heart rate 82 /min Rachel Angelia PMO CONSULTANT.AIRCRAFT INSPECTION RECORD CLERK Work Phone: [facility] 08-29-2023 10:55-0400 SaO2% (BldA) [Mass fraction] 99 % Rachel Angelia PMO CONSULTANT.AIRCRAFT INSPECTION RECORD CLERK Work Phone: [facility] 08-29-2023 10:55-0400 Systolic blood pressure 163 mm[Hg] Rachel Angelia PMO CONSULTANT.AIRCRAFT INSPECTION RECORD CLERK Work Phone: [facility] 08-29-2023 10:03-0400 Body temperature 98.01 [degF] Heidi Hatfield MD Work Phone: [facility] 08-29-2023 10:03-0400 Body weight 66.68 kg Heidi Hatfield MD Work Phone: [facility] 08-29-2023 10:03-0400 Diastolic blood pressure 77 mm[Hg] Heidi Hatfield MD Work Phone: [facility] 08-29-2023 10:03-0400 Heart rate 82 /min Heidi Hatfield MD Work Phone: [facility] 08-29-2023 10:03-0400 Respiratory rate 16 /min Heidi Hatfield MD Work Phone: [facility] 08-29-2023 10:03-0400 SaO2% (BldA) [Mass fraction] 99 % Heidi Hatfield MD Work Phone: [facility] 08-29-2023 10:03-0400 Systolic blood pressure 157 mm[Hg] Heidi Hatfield MD Work Phone: [facility] 07-04-2023 09:18-0400 Body height 167.6 cm South Saba DO Work Phone: [facility] 07-04-2023 09:18-0400 Body temperature 97.59 [degF] South Saba DO Work Phone: [facility] 07-04-2023 09:18-0400 Body weight 66.5 kg South Saba DO Work Phone: [facility] 07-04-2023 09:18-0400 Diastolic blood pressure 68 mm[Hg] South Saba DO Work Phone: [facility] 07-04-2023 09:18-0400 Heart rate 73 /min South Saba DO Work Phone: [facility] 07-04-2023 09:18-0400 SaO2% (BldA) [Mass fraction] 100 % South Saba DO Work Phone: [facility] 07-04-2023 09:18-0400 Systolic blood pressure 139 mm[Hg] South Saba DO Work Phone: [facility] 06-27-2023 10:30-0400 Body temperature 97.39 [degF] Heidi Hatfield MD Work Phone: [facility] 06-27-2023 10:30-0400 Body weight 69.4 kg Heidi Hatfield MD Work Phone: [facility] 06-27-2023 10:30-0400 Diastolic blood pressure 76 mm[Hg] Heidi Hatfield MD Work Phone: [facility] 06-27-2023 10:30-0400 Heart rate 70 /min Heidi Hatfield MD Work Phone: [facility] 06-27-2023 10:30-0400 Respiratory rate 16 /min Heidi Hatfield MD Work Phone: [facility] 06-27-2023 10:30-0400 SaO2% (BldA) [Mass fraction] 97 % Heidi Hatfield MD Work Phone: [facility] 06-27-2023 10:30-0400 Systolic blood pressure 141 mm[Hg] Heidi Hatfield MD Work Phone: [facility] 05-23-2023 09:45-0400 Body height 167.64 cm [employer] Other [employer] Other 05-23-2023 09:45-0400 Body mass index (BMI) [Ratio] 24.79 kg/m2 [employer] Other [employer] Other 05-23-2023 09:45-0400 Body weight 69.67 kg [employer] Other [employer] Other 05-23-2023 09:45-0400 Diastolic blood pressure 78 mm[Hg] Roland Ball Other [employer] Other 05-23-2023 09:45-0400 Respiratory rate 12 /min Roland Ball Other [employer] Other 05-23-2023 09:45-0400 Systolic blood pressure 158 mm[Hg] Roland Ball Other [employer] Other 04-23-2023 13:30-0400 Body height 167.64 cm Roland Ball Other [employer] Other 04-23-2023 13:30-0400 Body mass index (BMI) [Ratio] 24.34 kg/m2 Roland Ball Other [employer] Other 04-23-2023 13:30-0400 Body weight 68.4 kg Roland Ball Other [employer] Other 04-23-2023 13:30-0400 Diastolic blood pressure 74 mm[Hg] Roland Ball Other [employer] Other 04-23-2023 13:30-0400 Respiratory rate 12 /min Roland Ball Other [employer] Other 04-23-2023 13:30-0400 Systolic blood pressure 131 mm[Hg] Roland Ball Other [employer] Other 03-05-2023 09:30-0400 Body height 167.6 cm Cherelle Pack PMO CONSULTANT.AIRCRAFT INSPECTION RECORD CLERK Work Phone: [facility] 03-05-2023 09:30-0400 Body weight 70.22 kg Cherelle Pack PMO CONSULTANT.AIRCRAFT INSPECTION RECORD CLERK Work Phone: [facility] 03-05-2023 09:30-0400 Diastolic blood pressure 90 mm[Hg] Cherelle Pack PMO CONSULTANT.AIRCRAFT INSPECTION RECORD CLERK Work Phone: [facility] 03-05-2023 09:30-0400 Heart rate 85 /min Cherelle Pack PMO CONSULTANT.AIRCRAFT INSPECTION RECORD CLERK Work Phone: [facility] 03-05-2023 09:30-0400 Systolic blood pressure 152 mm[Hg] Cherelle Pack PMO CONSULTANT.AIRCRAFT INSPECTION RECORD CLERK Work Phone: [facility] 01-24-2023 08:45-0500 Body height 167.64 cm Roland Ball Other [employer] Other 01-24-2023 08:45-0500 Body mass index (BMI) [Ratio] 24.05 kg/m2 Roland Ball Other [employer] Other 01-24-2023 08:45-0500 Body temperature 96.7 [degF] Roland Ball Other [employer] Other 01-24-2023 08:45-0500 Body weight 67.59 kg Roland Ball Other [employer] Other 01-24-2023 08:45-0500 Diastolic blood pressure 93 mm[Hg] Roland Ball Other [employer] Other 01-24-2023 08:45-0500 Systolic blood pressure 165 mm[Hg] Roland Ball Other [employer] Other 01-20-2023 13:35-0500 Body height 167.64 cm Olya Gann Other [employer] Other 01-20-2023 13:35-0500 Body mass index (BMI) [Ratio] 24.53 kg/m2 Olya Gann Other [employer] Other 01-20-2023 13:35-0500 Body temperature 97.3 [degF] Olya Gann Other [employer] Other 01-20-2023 13:35-0500 Body weight 68.95 kg Olya Gann Other [employer] Other 01-20-2023 13:35-0500 Respiratory rate 18 /min Olya Gann Other [employer] Other 01-20-2023 13:35-0500 SaO2% (BldA) [Mass fraction] 95 % Olya Gann Other [employer] Other 01-03-2023 15:27-0500 Body height 167.6 cm Henry Ramos MD Work Phone: [facility] 01-03-2023 15:27-0500 Body temperature 97.81 [degF] Henry Ramos MD Work Phone: [facility] 01-03-2023 15:27-0500 Body weight 71.17 kg Henry Ramos MD Work Phone: [facility] 01-03-2023 15:27-0500 Diastolic blood pressure 87 mm[Hg] Henry Ramos MD Work Phone: [facility] 01-03-2023 15:27-0500 Heart rate 95 /min Henry Ramos MD Work Phone: [facility] 01-03-2023 15:27-0500 SaO2% (BldA) [Mass fraction] 99 % Henry Ramos MD Work Phone: [facility] 01-03-2023 15:27-0500 Systolic blood pressure 141 mm[Hg] Henry Ramos MD Work Phone: [facility] 09-26-2022 12:30-0500 Diastolic blood pressure 89 mm[Hg] Leila Alamo MD Work Phone: [facility] 09-26-2022 12:30-0500 Heart rate 79 /min Leila Alamo MD Work Phone: [facility] 09-26-2022 12:30-0500 Respiratory rate 18 /min Leila Alamo MD Work Phone: [facility] 09-26-2022 12:30-0500 SaO2% (BldA) [Mass fraction] 98 % Leila Alamo MD Work Phone: [facility] 09-26-2022 12:30-0500 Systolic blood pressure 140 mm[Hg] Leila Alamo MD Work Phone: [facility] 09-26-2022 11:25-0500 Body height 167.6 cm Leila Alamo MD Work Phone: [facility] 09-26-2022 11:25-0500 Body temperature 98.2 [degF] Leila Alamo MD Work Phone: [facility] 09-26-2022 11:25-0500 Body weight 68.04 kg Leila Alamo MD Work Phone: [facility] 08-07-2022 15:28-0400 Body weight 68.95 kg Henry Ramos MD Work Phone: [facility] 08-07-2022 15:28-0400 Diastolic blood pressure 91 mm[Hg] Henry Ramos MD Work Phone: [facility] 08-07-2022 15:28-0400 SaO2% (BldA) [Mass fraction] 98 % Henry Ramos MD Work Phone: [facility] 08-07-2022 15:28-0400 Systolic blood pressure 132 mm[Hg] Henry Ramos MD Work Phone: [facility] 03-13-2022 14:38-0400 Body height 169.5 cm Henry Ramos MD Work Phone: [facility] 03-13-2022 14:38-0400 Body temperature 96.8 [degF] Henry Ramos MD Work Phone: [facility] 03-13-2022 14:38-0400 Body weight 66.32 kg Henry Ramos MD Work Phone: [facility] 03-13-2022 14:38-0400 Diastolic blood pressure 96 mm[Hg] Henry Ramos MD Work Phone: [facility] 03-13-2022 14:38-0400 Heart rate 85 /min Henry Ramos MD Work Phone: [facility] 03-13-2022 14:38-0400 Respiratory rate 16 /min Henry Rmaos MD Work Phone: [facility] 03-13-2022 14:38-0400 SaO2% (BldA) [Mass fraction] 98 % Henry Ramos MD Work Phone: [facility] 03-13-2022 14:38-0400 Systolic blood pressure 151 mm[Hg] Henry Ramos MD Work Phone: [facility] 07-07-2021 14:50-0400 Diastolic blood pressure 101 mm[Hg] Mayra Michel MD Work Phone: [employer] Work Phone: 07-07-2021 14:50-0400 Heart rate 70 /min Mayra Michel MD Work Phone: [employer] Work Phone: 07-07-2021 14:50-0400 Respiratory rate 13 /min Mayra Michel MD Work Phone: [employer] Work Phone: 07-07-2021 14:50-0400 SaO2% (BldA) [Mass fraction] 99 % Mayra Michel MD Work Phone: [employer] Work Phone: 07-07-2021 14:50-0400 Systolic blood pressure 133 mm[Hg] Mayra Michel MD Work Phone: [employer] Work Phone: 07-07-2021 13:25-0400 Body height 167.6 cm Mayra Michel MD Work Phone: [employer] Work Phone: 07-07-2021 13:25-0400 Body mass index (BMI) [Ratio] 24.19 kg/m2 Mayra Michel MD Work Phone: [employer] Work Phone: 07-07-2021 13:25-0400 Body temperature 98.6 [degF] Mayra Michel MD Work Phone: [employer] Work Phone: 07-07-2021 13:25-0400 Body weight 67.99 kg Mayra Michel MD Work Phone: [employer] Work Phone: 11-25-2019 16:19-0500 Body weight 70.4 Kg [facility] Comment on above: Performed By: #### 1000, 4500, 4510, 452 0, 20206, 5000, [id number], [id number] #### [facility] Unless Otherwise Noted [address] [place] [address] / COLA #[id number]/FAUZIAIA # [id number] Encounters Encounter Date Encounter Type Care Provider Facility Start: 06-07-2025 ambulatory SOUTH EROSSY Facility :[facility] Start: 06-07-2025 End: 06-07-2025 Subsequent hospital visit by physician [facility] Work Phone: [facility] Radiology General Comment on above: Pain in right hip [M 25.551] Start: 06-07-2025 End: 06-07-2025 ambulatory SOUTH BUENROSTRO Facility:[facility] Start: 06-07-2025 End: 06-07-2025 Office outpatient visit 40 minutes South Buenrostro MD Work Phone: Orthopaedics Comment on above: Mechanical loosening of internal right hip prosthetic joint, subsequent encounter (Primary Dx); Pain in right hip; Radiculopathy, lumbar region Start: 05-12-2025 End: 05-12-2025 ambulatory Roland Serrano Work Phone: [facility] Work Phone: Start: 05-12-2025 End: 05-12-2025 Patient encounter procedure Roland Serrano -[facility] Work Phone: Start: 04-28-2025 Non-patient / Non-visit Roland olivera DO -[facility] Work Phone: Start: 03-29-2025 End: 03-29-2025 ambulatory [facility] Start: 03-29-2025 End: 03-29-2025 Patient encounter procedure South DIXON [facility] General Surgery [place] Start: 03-16-2025 End: 03-16-2025 ambulatory South Dixon [facility] Work Phone: Start: 03-16-2025 End: 03-16-2025 Departed Referred South Dixon MD Work Phone: [facility] Start: 03-16-2025 End: 03-16-2025 ambulatory South DIXON Facility:[id number] Start: 03-02-2025 End: 03-02-2025 ambulatory South DIXON Facility:[facility] Start: 02-28-2025 Non-patient / Non-visit Al Dixon MD Work Phone: [facility] Work Phone: Start: 02-21-2025 Non-patient / Non-visit Al Dixon MD Work Phone: [facility] Work Phone: Start: 02-21-2025 End: 02-21-2025 ambulatory SOUTH GORDILLOSY Facility:[facility] Start: 02-21-2025 End: 02-21-2025 Subsequent hospital visit by physician Ronald Alexander 1 Work Phone: Radiology Comment on above: Pain in right hip [M 25.551] Start: 02-21-2025 End: 02-21-2025 ambulatory SOUTH GORDILLOSY Facility:[facility] Start: 02-21-2025 End: 02-21-2025 Home visit est pt low-mod severity 25 minutes South Buenrostro MD Work Phone: Orthopaedics Comment on above: Status post right hi p replacement (Primary Dx); Pain in right hip Start: 01-17-2025 End: 01-17-2025 Subsequent hospital visit by physician Negra Manzano101 X-Ray 1 [facility] Comment on above: Left forearm pain Start: 01-17-2025 End: 01-17-2025 Office outpatient visit 25 minutes Edward Barros MD Work Phone: [facility] Comment on above: Chronic hip pain aft er total replacement of right hip joint (Primary Dx); Left forearm pain Start: 01-17-2025 End: 01-17-2025 ambulatory [facility] Start: 01-13-2025 End: 01-13-2025 Office outpatient visit 25 minutes Geneva Veliz MD Work Phone: [facility] Comment on above: Lumbar pain (Primary Dx); Trochanteric bursitis of right hip Start: 01-13-2025 End: 01-13-2025 ambulatory [place] Eun VELIZ [facility] Start: 01-06-2025 End: 01-06-2025 ambulatory [facility] Start: 01-06-2025 End: 01-06-2025 Subsequent hospital visit by physician Negra Baires Schedule [facility] Comment on above: Lumbar radiculopathy Start: 01-05-2025 End: 01-05-2025 ambulatory [facility] Work Phone: Start: 01-05-2025 End: 01-05-2025 Encounter for general adult medical examination without abnormal findings [facility] Start: 01-05-2025 End: 01-05-2025 Patient encounter procedure [facility] Work Phone: Start: 01-04-2025 Non-patient / Non-visit [facility] Work Phone: Start: 01-03-2025 Non-patient / Non-visit [facility] Work Phone: Start: 01-02-2025 Patient encounter status [facility] Start: 12-10-2024 End: 12-10-2024 ambulatory EDWARD BARROS [facility] Start: 12-10-2024 End: 12-10-2024 Office outpatient new 45 minutes Edward Barros MD Work Phone: [facility] Comment on above: Lumbar radiculopathy [...] leg paresthesias Start: 11-26-2024 End: 11-26-2024 ambulatory [facility] Work Phone: Start: 11-26-2024 End: 11-26-2024 Patient encounter procedure [facility] Physician [facility] Work Phone: Start: 11-01-2024 Non-patient / Non-visit [facility] Work Phone: Start: 11-01-2024 [...] End: 10-07-2024 Bamboo flowsheet Leigh A Felter PMO CONSULTANT-AIRCRAFT INSPECTION RECORD CLERK Work Phone: [facility] Start: 10-07-2024 End: 10-07-2024 Bamboo flowsheet Leigh A Felter PMO CONSULTANT-AIRCRAFT INSPECTION RECORD CLERK Work Phone: [facility] Start: 10-07-2024 End: 10-07-2024 ambulatory LEIGH A FELTER Not Available Start: 10-07-2024 End: 10-07-2024 Office outpatient visit 15 minutes Leigh A Felter PMO CONSULTANT-AIRCRAFT INSPECTION RECORD CLERK Work Phone: [facility] Comment on above: Seborrheic keratosis (Primary Dx); Melanocytic nevus of trunk Start: 09-15-2024 Non-patient / Non-visit [facility] Physician [facility] Work Phone: Start: 08-19-2024 End: 08-19-2024 Telemedicine consultation with patient Melody Mena PMO CONSULTANT.AIRCRAFT INSPECTION RECORD CLERK Work Phone: Gynecology Oncology Start: 08-19-2024 End: 08-19-2024 ambulatory Melody Mena PMO CONSULTANT.AIRCRAFT INSPECTION RECORD CLERK Work Phone: [facility]necology Oncology Comment on above: NO SHOW (Primary Dx) Start: 08-18-2024 End: 08-18-2024 Telephone encounter Ernesto Chacko PMO CONSULTANT.AIRCRAFT INSPECTION RECORD CLERK Work Phone: Gynecology Oncology Comment on above: [...] methimaz ole Start: 06-29-2024 End: 06-29-2024 ambulatory [facility] Work Phone: Start: 06-29-2024 End: 06-29-2024 Patient encounter procedure [facility] Physician [facility] Work Phone: Start: 06-25-2024 Non-patient / Non-visit [facility] Physician [facility] Work Phone: Start: 05-19-2024 Non-patient / Non-visit [facility] Physician [facility] Work Phone: Start: 05-12-2024 End: 05-12-2024 ambulatory MARY LAU Not Available Start: 05-04-2024 End: 05-04-2024 Patient encounter procedure [facility] Physician [facility] Work Phone: Start: 05-03-2024 Non-patient / Non-visit [facility] [employer] Work Phone: Start: 03-26-2024 End: 03-26-2024 ambulatory MARY LAU Salvatore STEP[employer] Not Available Start: 03-05-2024 End: 03-05-2024 ambulatory .MARY STEPANIC Not Available Start: 02-13-2024 End: 02-13-2024 ambulatory .MARY Salvatore STEPANIC Not Available Start: 12-17-2023 End: 12-17-2023 ambulatory Roland Serrano Other [employer] Other Start: 12-17-2023 Telephone encounter Roland Christensen [facility] Start: 10-23-2023 End: 10-23-2023 ambulatory Roland Serrano Other [employer] Other Start: 10-23-2023 Telephone encounter Roland Christensen [facility] Start: 09-29-2023 End: 09-29-2023 Patient encounter procedure South Philippe Jayant DO Work Phone: Colorectal Surgery Comment on above: Radiation proctitis (Primary Dx); Endometrial cancer (HCC) Start: 09-21-2023 End: 09-21-2023 ambulatory Roland Serrano Other [employer] Other Start: 09-21-2023 Telephone encounter [facility] Start: 09-18-2023 End: 09-18-2023 ambulatory Roland Serrano Other [employer] Other Start: 09-18-2023 Telephone encounter [facility] Start: 09-17-2023 End: 09-17-2023 ambulatory Roland Serrano Other [employer] Other Start: 09-17-2023 Telephone encounter [facility] Christensen [facility] Start: 09-15-2023 End: 09-15-2023 ambulatory Roland Maggie Other [facility] Other Start: 09-15-2023 Telephone encounter Roland Ball [facility] Start: 09-14-2023 End: 09-14-2023 ambulatory Roland Ball Other [facility] Other Start: 09-14-2023 Telephone encounter Roland Ball [facility] Start: 09-12-2023 End: 09-12-2023 ambulatory Roland Ball Other [facility] Other Start: 09-12-2023 Encounter for genera l adult medical examination without abnormal findings Roland Ball [facility] Start: 09-12-2023 Periodic preventive med est patient 40-64yrs Roland Serrano [facility] Start: 09-10-2023 End: 09-10-2023 ambulatory Roland Serrano Other [facility] Other Start: 09-10-2023 Telephone encounter Roland Ball [facility] Start: 09-03-2023 End: 09-03-2023 ambulatory Roland Maggie Other [facility] Other Start: 09-03-2023 Telephone encounter Roland Ball [facility] Start: 09-02-2023 End: 09-02-2023 ambulatory Roland Ball Other [employer] Other Start: 09-02-2023 Telephone encounter Roland Ball [facility] Start: 09-01-2023 End: 09-01-2023 ambulatory Roland Ball Other [employer] Other Start: 09-01-2023 Telephone encounter Roland Ball [facility] Start: 08-29-2023 End: 08-29-2023 Preprocedural examination done Rachel Galan APRN.[facility] Work Phone: [facility] Work Phone: Start: 08-29-2023 End: 08-29-2023 ambulatory Pulm Fct Lab Main 8 Pulmonary Medicine Comment on above: Spirometry Start: 08-29-2023 End: 08-29-2023 Patient encounter procedure Pulm Fct Lab Main 8 [facility] Comment on above: Dyspnea and respirat ory abnormalities (Primary Dx); Calcified nodule; Iron deficiency anemia due to chronic blood loss Pre-op evaluation (P rimary Dx) Start: 08-29-2023 End: 08-29-2023 Subsequent hospital visit by physician Xr Chest Main A21 Radiology Comment on above: Dyspnea, unspecified type [R06.00] Start: 08-26-2023 Orders Only Heidi Hatfield MD Work Phone: Respiratory [facility] Comment on above: ILD (interstitial lamont ng disease) (HCC) (Primary Dx) Start: 08-22-2023 ambulatory South rincon DO Work Phone: [facility] Start: 08-22-2023 Patient encounter procedure South Saba DO Work Phone: Colorectal Surgery Comment on above: Pre op appointment Start: 08-22-2023 End: 08-22-2023 Subsequent hospital visit by physician [facility] ([facility]) Work Phone: [facility] Radiology CT Scan Comment on above: Interstitial pulmona ry disease (HCC) [J84.9] Start: 08-04-2023 End: 08-04-2023 ambulatory Roland Serrano Other dak[facility] Other Start: 08-04-2023 Office outpatient vi sit 15 minutes Roland Serrano [facility] Start: 07-22-2023 ambulatory South Rendon nte DO Work Phone: Colorectal Surgery Start: 07-22-2023 Telephone encounter South Saba DO Work Phone: Colorectal Surgery Comment on above: Patient Update Start: 07-08-2023 End: 07-08-2023 ambulatory Roland Serrano Other [facility] Other Start: 07-08-2023 Telephone encounter Roland VOGT [facility] Start: 07-04-2023 ambulatory Jackson Vale sergey DO Work Phone: Colorectal Surgery Start: 07-04-2023 End: 07-04-2023 Patient encounter procedure South Saba DO Work Phone: Colorectal Surgery Comment on above: Endometrial cancer ( HCC) (Primary Dx); Radiation proctitis Start: 06-27-2023 End: 06-27-2023 ambulatory Pulm Fct Lab Main 9 Pulmonary Medicine Comment on above: Spirometry Start: 06-27-2023 End: 06-27-2023 Patient encounter procedure Pulm Fct Lab Main 9 [facility] Comment on above: Interstitial pulmona ry disease (HCC) (Primary Dx); Other secondary pulmonary hypertension (HCC) Start: 05-26-2023 ambulatory Henry perales MD Work Phone: Gynecology Oncology Comment on above: Procitis Start: 05-23-2023 End: 05-23-2023 ambulatory Roland Serrano Other [facility] Other Start: 05-23-2023 Office outpatient vi sit 15 minutes Roland Serrano [facility] Start: 05-13-2023 End: 05-13-2023 ambulatory Roland Serrano Other [facility] Other Start: 05-13-2023 Telephone encounter Roland VOGT [facility] Start: 04-23-2023 End: 04-23-2023 ambulatory Roland Serrano Other [facility] Other Start: 04-23-2023 Patient encounter procedure Roland Serrano [facility] Start: 03-25-2023 End: 03-25-2023 ambulatory Roland Serrano Other [facility] Other Start: 03-25-2023 Telephone encounter Roland VOGT [facility] Start: 03-21-2023 Telephone encounter Roland VOGT [facility] Start: 03-21-2023 End: 03-22-[address] ROLAND SERRANO [facility] [employer] Other Start: 03-11-2023 End: 03-11-2023 ambulatory Roland Serrano Other [facility] Other Start: 03-11-2023 Telephone encounter Roland Serrano [facility] Start: 03-10-2023 End: 03-11-[address] ROLAND SERRANO [facility] [employer] Other Start: 03-10-2023 Telephone encounter Roland Serrano [facility] Start: 03-05-2023 End: 03-05-2023 Patient encounter procedure Cherelle Pack PMO CONSULTANT.[employer] INSPE[employer] RECORD CLERK Work Phone: Gastroenterology Comment on above: Rectal bleeding (Vivi nicho Dx) Start: 01-24-2023 End: 01-24-2023 ambulatory Roland Serrano Other [facility] Other Start: 01-24-2023 Office outpatient vi sit 15 minutes Roland Serrano [facility] Start: 01-23-2023 End: 01-23-2023 ambulatory Roland Serrano Other [employer] Other Start: 01-23-2023 Telephone encounter Roland Serrano [facility] Start: 01-20-2023 Office outpatient vi sit 15 minutes Olya Gann [facility] [place] Start: 01-20-2023 End: 01-20-[address] ROLAND SERRANO [facility] [employer] Other Start: 01-07-2023 End: 01-07-2023 ambulatory Roland Serrano Other [employer] Other Start: 01-07-2023 Telephone encounter Roland Serrano [facility] Start: 01-03-2023 End: 01-04-2023 ambulatory Henry Ramos MD Work Phone: Gynecology Oncology Comment on above: Recurrent carcinoma of endometrium (HCC) (Primary Dx); Radiation proctitis; Blood per rectum Start: 01-03-2023 End: 01-04-2023 Patient encounter procedure Henry Ramos MD Work Phone: [facility] Start: 12-25-2022 Telephone encounter Aretha Pena [...] examination without abnormal findings DR ROLAND SERRANO [facility] Start: 09-04-2022 End: 09-05-[address] ROLAND SERRANO Facility:[facility] Start: 09-04-2022 End: 09-05-2022 Encounter for general adult medical examination without abnormal findings DR ROLAND SERRANO Facility:[facility] Start: 08-29-2022 Adult health examination Roland Serrano Other [facility] Other Start: 08-29-2022 Encounter for genera l adult medical examination without abnormal findings Roland Serrano Other [employer] Other Start: 08-29-2022 Pre-procedure evaluation check Roland Serrano Other [facility] Other Start: 08-07-2022 End: 08-07-2022 ambulatory Henry Ramos MD Work Phone: Gynecology Oncology Comment on above: Recurrent carcinoma of endometrium (HCC) (Primary Dx); Radiation proctitis; Foreshortening of vagina; Endometrial cancer (HCC); Vaginal atrophy; Rectal bleeding Start: 08-07-2022 End: 08-07-2022 Patient encounter procedure Henry Ramos MD Work Phone: [facility] Start: 06-12-2022 End: 06-12-2022 ambulatory SALOMON JACOME Facility: Start: 03-13-2022 End: 03-13-2022 ambulatory Henry Ramos MD Work Phone: Gynecology Oncology Comment on above: Recurrent carcinoma of endometrium (HCC) (Primary Dx); Vaginal atrophy; Foreshortening of vagina Start: 03-13-2022 End: 03-13-2022 Patient encounter procedure Henry Ramos MD Work Phone: [facility] Start: 12-13-2021 End: 12-13-2021 Subsequent hospital visit by physician Arrival Time Radiology Work Phone: Radiology Pet CT Comment on above: Malignant neoplasm o f endometrium (HCC) [C54.1] Start: 11-21-2021 End: 11-22-2021 Emergency department patient visit [facility] Start: 07-07-2021 End: 07-07-2021 Emergency department patient visit [facility] Start: 07-07-2021 End: 07-07-2021 Emergency department patient visit Mayra Michel MD Work Phone: [facility] ED Comment on above: Dizziness (Primary D x); Dehydration Procedures Date Procedure Procedure Detail Performing Clinician Start: 06-07-2025 Radex hip unilateral with pelvis 2-3 views South Buenrostro MD Work Phone: Start: 03-16-2025 Excision of lipoma South DIXON Start: 02-21-2025 Radex hip unilateral with pelvis 2-3 views South Buenrostro MD Work Phone: Start: 01-17-2025 Radex forearm 2 views Edward Barros MD Work Phone: Start: 01-13-2025 Arthrocentesis aspir&/inj major jt/bursa w/o us Geneva Veliz MD Work Phone: Start: 01-06-2025 Nerve conduction studies 11-12 studies Edward Barros MD Work Phone: Start: 11-01-2024 Radex hip unilateral with pelvis 2-3 views Dyan SOSA Work Phone: Start: 08-05-2024 Iadna human papillomavirus high-risk types Ernesto Chacko APRN.[employer] INSPE[employer] RECORD CLERK Work Phone: Start: 08-05-2024 Unlisted surgical pathology procedure Ernesto Chacko APRN.[employer] INSPE[employer] RECORD CLERK Work Phone: Start: 08-05-2024 Microscopic observation [Identifier] in Cervix by Cyto stain Leigh Valenzuela PMO CONSULTANT-[facility] Work Phone: Start: 05-04-2024 Quick Strep (POC) Start: 08-29-2023 Spmtry w/vc expiratory bernie w/wo mxml vol vntj Heidi Hatfield MD Work Phone: Start: 08-29-2023 Radiologic exam chest 2 views Heidi Hatfield MD Work Phone: Start: 08-22-2023 Ct thorax w/o contrast material Heidi Hatfield MD Work Phone: Start: 06-27-2023 Brncdilat rspse spmtry pre&post-brncdilat admn Heidi Hatfield MD Work Phone: Start: 09-26-2022 Colonoscopy flx dx w/collj spec when pfrmd Ernesto Chacko APRN.[employer] INSPE[employer] RECORD CLERK Work Phone: Start: 09-26-2022 Colonoscopy Leila Alamo MD Work Phone: Start: 12-13-2021 Ct abdomen & pelvis w/contrast material Ernesto Chacko APRN.[employer] INSPECTION RECORD CLERK Work Phone: Start: 12-13-2021 Ct thorax w/contrast material Ernesto lozano APRN.[employer] INSPE[employer] RECORD CLERK Work Phone: Start: 09-20-2021 Adult depression screening assessment Henry Ramos MD Work Phone: Start: 07-07-2021 Urinalysis microscopic only Mayra oleary MD Work Phone: Start: 07-07-2021 Urnls dip stick/tablet rgnt auto w/o microscopy Mayra Michel MD Work Phone: Start: 07-07-2021 Comprehensive metabolic panel Mayra Chadwick MD Work Phone: Start: 10-18-2019 Mammography Leigh Valenzuela [employer] Work Phone: Start: 08-12-2019 Abdominal hysterectomy South RAVIL Comment on above: due to endometrial cancer Start: 06-11-2019 General examination of patient Roland Serrano Other Start: 06-11-2019 Screening for malignant neoplasm of colon Roland Serrano Other Start: 05-05-2019 Microscopic observation [Identifier] in Cervix by Cyto stain Leigh Valenzuela PMO CONSULTANT-[employer] INSPE[employer] RECORD CLERK Work Phone: Start: 11-17-2007 Cystoscope, device (physical object) South RAVIL Start: 11-17-1999 Colonoscopy South NILL Start: 11-17-1992 Esophagogastroduodenoscopy South NILL Arthroscopy of knee South NILL Comment on above: x 3 Arthroscopy of shoulder Manny aejarod NILL section South NIL L section South NIL L Cholecystectomy South NILL Decompression of median nerve South NILL Excision of cyst of breast M ichfadi NILL Neoplasm of pituitar y gland (disorder) South NILL Repair of joint of right hip South DIXON Screening for malign ant neoplasm of breast Roland Ball Other Thumb surgery South DIXON Plan of Treatment Date Care Activity Detail Author Start: 2035 RSV High Risk: (Elde rly (60+) or Population) (1 - 1-dose 75+ series) RSV High Risk: (Elderly (60+) or Population) (1 - 1-dose 75+ series) [facility] Start: 2035 RSV Vaccine (1 - 1-d ose 75+ series) RSV Vaccine (1 - 1-dose 75+ series) [facility] Start: 09-26-2032 Screening for malign ant neoplasm of colon [facility] Start: 08-05-2029 Screening for malign ant neoplasm of cervix [facility] Start: 08-05-2027 Screening for malign ant neoplasm of cervix Pap Smear [facility] Start: 08-29-2026 [facility] Start: 07-04-2026 DIABETES SCREEN DIABETES SCREEN [facility] Start: 07-04-2026 [facility] Start: 10-06-2025 End: 10-06-2025 Patient encounter procedure 10/06/2025 11:05 AM EST Office Visit [facility] [address] [place] [id number] Leigh Valenzuela, PMO CONSULTANT-AIR[employer] INSPECTION RECORD CLERK [address] [place] [address] [facility] Start: 08-05-2025 Screening for malign ant neoplasm of cervix Cervical Cancer Screening [facility] Start: 07-18-2025 Influenza vaccination Influenza Vacc ine (#1) [facility] Start: 2025 Advance Directive Discussion Advance Directive Discussion [facility] Start: 2025 Screening for osteoporosis Bone Dens ity Screening [facility] Start: 01-13-2025 End: 01-13-2025 Patient encounter procedure 01/13/2025 10:30 AM EST Office Visit [facility] [address] [place] [address] Geneva Veliz MD [address] [facility] [address] [place] [address] [facility] Start: 12-29-2024 End: 12-29-2024 Patient encounter procedure 12/29/2024 10:00 AM EST Office Visit [facility] [address] [place] [address] Jr. Mary Gatica DO [address] [facility] [address] [place], [place] [id number] [facility] Start: 12-10-2024 End: 12-10-2025 EMG & nerve conduction EMG & nerve conduction Neurology Routine Lumbar radiculopathy Expected: 12/10/2024 (Approximate), Expires: 12/10/2025 [facility] Work Phone: Comment on above: Expected: 12/10/2024 (Approximate), Expires: 12/10/2025 Start: 12-10-2024 End: 12-10-2025 XR Hip Views [facility] Work Phone: Comment on [...] [address] [place] [address] Dyan Robb, PA [address] [place] [address] [facility] Start: 11-25-2024 End: 11-25-2024 Follow-up encounter 11/25/2024 1:50 PM EST Visit (SP) Office Gynecology Oncology [address] [place] [address] Henry Ramos MD [address] [place] [address] 4 MONTH FOLLOW UP Gynecology Oncology Comment on above: 4 MONTH FOLLOW UP Start: 11-03-2024 End: 11-03-2024 Patient encounter procedure 11/03/2024 1:00 PM EST Office Visit [facility] [address] [place] [phone] Dyan Robb PA [address] [place] [address] [facility] Start: 11-01-2024 End: 11-01-2025 MR Lumbar spine WO contrast MR lumbar spine wo contrast Imaging Routine Lumbar radiculopathy, right Expected: 11/01/2024 (Approximate), Expires: 11/01/2025 [facility] Comment on above: Expected: 11/01/2024 (Approximate), Expires: 11/01/2025 Start: 11-01-2024 End: 11-01-2024 Patient encounter procedure [facility] Comment on above: History of right hip replacement (Primary Dx); Acute pain of right hip Start: 09-09-2024 End: 09-09-2024 Follow-up encounter Gynecology Oncology Comment on above: 1 Year/Annual Follow Up follow up; needs pap Start: 08-19-2024 End: 08-19-2024 ambulatory 08/19/2024 3:00 PM EDT [facility] Gynecology Oncology [address] [place] [address] Melody Mena APRN.[employer] INSPECTION RECORD CLERK [address] [place], [place] [id number] TELEVISIT Gynecology Oncology Comment on above: TELEVISIT Start: 08-05-2024 End: 08-05-2024 Follow-up encounter 08/05/2024 11:10 AM EDT Visit (SP) Office Gynecology Oncology [address] [place] [address] Henry Ramos MD [address] [place], [place] [id number] Follow up Gynecology Oncology Comment on above: Follow up Start: 07-18-2024 Covid-19 Vaccine () Covid-19 Vaccine () [facility] Start: 07-18-2024 Covid-19 Vaccine () Covid-19 Vaccine () [facility] Start: 07-18-2024 Influenza vaccination Influenza Vacc ine (#1) [facility] Start: 09-26-2023 Colonoscopy COLONOSCOPY [facility] Start: 09-26-2023 COLORECTAL CANCER SCREENING COLORECTAL CANCER SCREENING [facility] Start: 09-26-2023 Screening for malign ant neoplasm of colon [facility] Start: 08-26-2023 End: 09-24-2024 SPIROMETRY BASELINE ONLY SPIROMETRY BASELINE ONLY PFT Routine ILD (interstitial lung disease) (HCC) Expected: 08/26/2023, Expires: 09/24/2024 [facility] Work Phone: Comment on above: Expected: 08/26/2023 , Expires: 09/24/2024 Start: 07-22-2023 End: 09-21-2023 CBC W Auto Differential panel - Blood CBC + DIFF Lab Routine Radiation proctitis Expected: 07/22/2023, Expires: 09/21/2023 [facility] Work Phone: Comment on above: Expected: 07/22/2023 , Expires: 09/21/2023 Start: 07-22-2023 End: 09-21-2023 Comprehensive metabolic 2000 panel - Serum or Plasma COMP METABOLIC PANEL Lab Routine Radiation proctitis Expected: 07/22/2023 (Approximate), Expires: 09/21/2023 [facility] Work Phone: Comment on above: Expected: 07/22/2023 (Approximate), Expires: 09/21/2023 Start: 07-18-2023 Covid-19 Vaccine ( season) Covid-19 Vaccine ( season) [facility] Start: 07-18-2023 Influenza vaccination C [facility] Start: 11-17-2022 DEPRESSION ASSESSMENT DEPRESSION ASS ESSMENT [facility] Start: 09-20-2022 Adult depression scr eening assessment DEPRESSION SCREENING [facility] Start: 08-12-2022 DIABETES SCREEN DIABETES SCREEN [facility] Start: 08-07-2022 End: 10-07-2022 CBC W Auto Differential panel - Blood CBC + DIFF Lab Routine Rectal bleeding Expected: 08/07/2022, Expires: 10/07/2022 [facility] Work Phone: Comment on above: Expected: 08/07/2022 , Expires: 10/07/2022 Start: 07-18-2022 Influenza vaccination [facility] Start: 05-05-2022 Screening for malign ant neoplasm of cervix [facility] Start: 11-27-2021 COVID-19 VACCINE (3 - Booster for Moderna series) COVID-19 VACCINE (3 - Booster for Moderna series) [facility] Start: 11-17-2021 DEPRESSION ASSESSMENT DEPRESSION ASS [facility] Start: 08-22-2021 COVID-19 VACCINE (3 - Booster for Moderna series) COVID-19 VACCINE (3 - Booster for Moderna series) [facility] Start: 08-22-2021 COVID-19 VACCINE (3 - Moderna series) COVID-19 VACCINE (3 - Moderna series) [facility] Start: 07-18-2021 Influenza vaccination Flu vaccine (# 1) [employer] Work Phone: Start: 10-18-2020 Screening for malign ant neoplasm of breast [facility] Start: 2020 RSV High Risk: (Elde rly (60+) or Population) (1 - Risk 60-74 years 1-dose series) RSV High Risk: (Elderly (60+) or Population) (1 - Risk 60-74 years 1-dose series) [facility] Start: 2020 RSV Vaccine (1 - 1-d ose 60+ series) RSV Vaccine (1 - 1-dose 60+ series) [facility] Start: 2020 RSV Vaccine (1 - Ris k 60-74 years 1-dose series) RSV Vaccine (1 - Risk 60-74 years 1-dose series) [facility] Start: 2010 Pneumococcal vaccination Pneum ococcal Vaccine (1 of 1 - PCV) [facility] Start: 2010 Pneumococcal Vaccine : 50+ (1 of 1 - PCV) Pneumococcal Vaccine: 50+ (1 of 1 - PCV) [facility] Start: 2010 SHINGRIX VACCINE (1 of 2) ROGERS GRIX VACCINE (1 of 2) [facility] Start: 2010 Zoster Vaccines (1 of 2) Zoste r Vaccines (1 of 2) [facility] Start: 2005 COLOGUARD (FIT-DNA) COLOGUARD (FIT-D NA) [facility] Start: 2005 Colonoscopy COLONOSCOPY [facility] Start: 2005 COLORECTAL CANCER SCREENING COLORECTAL CANCER SCREENING [facility] Start: [address] COLONOGRAPHY [facility] Start: 2005 FECAL OCCULT BLOOD FECAL OCCULT BLOO D [facility] Start: 2005 Lipid 1996 panel - S marcela or Plasma Lipid Screening [facility] Start: 2005 Lipid panel Lipid Screening [facility] Start: 2005 LIPID SCREEN LIPID SCREEN [facility] Start: 2005 Screening for malign ant neoplasm of colon [facility] Start: 2005 [facility] Start: 2000 Mammography [facility] Start: 2000 Screening for malign ant neoplasm of breast Mammogram Screening [facility] Start: 1990 HPV TESTING HPV TESTING [facility] Start: 1990 Screening for malign ant neoplasm of cervix HPV/Cotest [facility] Start: 1982 DTaP/Tdap/Td Vaccine s (1 - Tdap) DTaP/Tdap/Td Vaccines (1 - Tdap) [facility] Start: 1981 PAP TESTING PAP TESTING [facility] Start: 1981 Screening for malign ant neoplasm of cervix [facility] Start: 1979 Pneumococcal vaccination Pneum ococcal Vaccine (1 of 2 - PCV) [facility] Start: 1979 Urine microalbumin profile [facility] Start: 1978 ANNUAL PCP TEAM 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 SALES OFFICER SHAILA DISEASE VISIT ANNUAL PCP TEAM CHRONIC DISEASE VISIT [facility] Start: 1978 Anxiety Screening Anxiety Screening [facility] Start: 1978 BP CONTROLLED (<130/80) BP CONTROLLE D (<130/80) [facility] Start: 1978 Depression Screening Depression Scre ening [facility] Start: 1978 HEPATITIS C SCREENING HEPATITIS C [facility] Start: 1978 Hepatitis C screening Hepatitis C [facility] Start: 1978 HIV SCREENING HIV SCREENING [facility] Start: 1978 HIV screening HIV Screening [facility] Start: 1961 MMR Vaccines (1 of 1 - Standard series) MMR Vaccines (1 of 1 - Standard series) [facility] Start: 1960 HIV screening HIV Screening [facility] Start: 1960 Lipid panel Lipid Panel [facility] Start: 1960 Screening for malign ant neoplasm of colon [facility] Start: 1960 Yearly Adult Physical Yearly Adult P hysical [facility] End: 03-05-2024 Colonoscopy COLONOSCOPY (THERAPEUTIC) Endoscopy Routine Rectal bleeding 1 Occurrences starting 03/05/2023 until 03/05/2024 [facility] Work Phone: Comment on above: 1 Occurrences starti ng 03/05/2023 until 03/05/2024 End: 07-26-2024 Ct thorax w/o contrast material CT CHEST WO IVCON Radiology Routine Interstitial pulmonary disease (HCC) 1 Occurrences starting 06/27/2023 until 07/26/2024 [facility] Work Phone: Comment on above: 1 Occurrences starti ng 06/27/2023 until 07/26/2024 End: 07-07-2021 Culture, Urine Culture, Urine Microbiology Routine Once for 1 Occurrences starting 07/07/2021 until 07/07/2021 [employer] Work Phone: Comment on above: Once for 1 Occurrenc es starting 07/07/2021 until 07/07/2021 Culture, Urine Culture, Urine Microbiology Routine 07/07/2021 2:00 PM EDT [facility] Work Phone: End: 06-27-2024 Echocardiography ECHO Cardiology Routine Other secondary pulmonary hypertension (HCC) 1 Occurrences starting 06/27/2023 until 06/27/2024 [facility] Work Phone: Comment on above: 1 Occurrences starti ng 06/27/2023 until 06/27/2024 H&P for surgery H&P FOR SURGERY Procedures Routine Radiation proctitis Ordered: 07/22/2023 [facility] Work Phone: Comment on above: Ordered: 07/22/2023 End: 07-26-2024 LUNG DIFFUSION CAPACITY (DLCO) LUNG DIFFUSION CAPACITY (DLCO) PFT Routine Interstitial pulmonary disease (HCC) 1 Occurrences starting 06/27/2023 until 07/26/2024 [facility] Work Phone: Comment on above: 1 Occurrences starti ng 06/27/2023 until 07/26/2024 LUNG DIFFUSION CAPAC ITY (DLCO) LUNG DIFFUSION CAPACITY (DLCO) PFT Routine Interstitial pulmonary disease (HCC) 08/29/2023 9:27 AM EDT [facility] Work Phone: End: 07-26-2024 LUNG VOLUMES LUNG VOLUMES PFT Routine Interstitial pulmonary disease (HCC) 1 Occurrences starting 06/27/2023 until 07/26/2024 [facility] Work Phone: Comment on above: 1 Occurrences starti ng 06/27/2023 until 07/26/2024 MG Breast - bilatera l Screening [facility] PAP TEST PAP TEST Lab Rou teri Vaginal bleeding History of endometrial cancer Ordered: 08/05/2024 [facility] Work Phone: Comment on above: Ordered: 08/05/2024 End: 07-26-2024 Pulmonary ventilation & perfusion imaging NM LUNG VENT / PERF VQ Radiology Routine Other secondary pulmonary hypertension (HCC) 1 Occurrences starting 06/27/2023 until 07/26/2024 [facility] Work Phone: Comment on above: 1 Occurrences starti ng 06/27/2023 until 07/26/2024 REFER FOR ADMIT INTERVIEW REFER FOR ADMIT INTERVIEW Procedures Routine Radiation proctitis Ordered: 07/22/2023 [facility] Work Phone: Comment on above: Ordered: 07/22/2023 End: 08-07-2023 Screening colonoscopy COLONOSCOPY SCREENING Endoscopy Routine Rectal bleeding 1 Occurrences starting 08/07/2022 until 08/07/2023 [facility] Work Phone: Comment on above: 1 Occurrences starti ng 08/07/2022 until 08/07/2023 End: 09-26-2022 Screening colonoscopy COLONOSCOPY SCREENING Endoscopy Routine Rectal bleeding 1 Occurrences starting 09/26/2022 until 09/26/2022 [facility] Work Phone: Comment on above: 1 Occurrences starti ng 09/26/2022 until 09/26/2022 SPIROMETRY BASELINE ONLY SPIROME TRY BASELINE ONLY PFT Routine ILD (interstitial lung disease) (HCC) 08/29/2023 9:27 AM EDT [facility] Work Phone: SPIROMETRY WITH DILA TOR IF OBSTRUCTED SPIROMETRY WITH DILATOR IF OBSTRUCTED PFT Routine Dyspnea, unspecified type 06/27/2023 10:15 AM EDT [facility] Work Phone: XR Lumbar spine View s W flexion and W extension XR lumbar spine 4+ views w flexion extension Imaging Routine Lumbar radiculopathy, right Ordered: 11/01/2024 [facility] Work Phone: Comment on above: Ordered: 11/01/2024 End: 03-23-2026 XR Pelvis AP XR PELVIS 1V AP Radiology Routine Pain in right hip 1 Occurrences starting 02/21/2025 until 03/23/2026 [facility] Work Phone: Comment on above: 1 Occurrences starti ng 02/21/2025 until 03/23/2026 End: 07-07-2026 XR Pelvis AP XR PELVIS 1V AP Radiology Routine Mechanical loosening of internal right hip prosthetic joint, subsequent encounter 1 Occurrences starting 06/07/2025 until 07/07/2026 [facility] Work Phone: Comment on above: 1 Occurrences starti ng 06/07/2025 until 07/07/2026 [facility] Immunizations Immunization Date Immunization Notes Care Provider Kirsten young 06-27-2021 COVID-19 vaccine, fu ll dose (MODERNA) Henry Ramos MD Work Phone: [facility] 11-21-2020 COVID-19 vaccine, fu ll dose (MODERNA) Henry Ramos MD Work Phone: [facility] NEGATED: Highlighted row has not occurred!02-01-2020 influenza virus vaccine, live, attenuated, for intranasal use [place] [facility] [place] Payers Date Payer Category Payer Medicare MEDICARE [id number] 2025 Medicare [id number] 2025 Self-pay [id number] 2022 Blue Cross Blue Shield 1.2.8 [id number] 2022 Blue Cross Blue Shie ld Managed Care [facility] [id number] 2020 Unknown MMO MMO [employer]US [id number] 2020-Present [phone] [address] [place] [address] PPO [id number]. [id number] 2020 Unknown [id number] 1.13.159.2. [id number] 1960 Unknown [id number] 2.16.840.1.491260.3.579.2. 174 1960 Unknown [id number] 2.16.840.1.958566.3.579.2. 174 1960 Unknown [id number] 2.16.840.1.254431.3.579.2. 593 1960 Unknown [id number] 2.16.840.1.468393.3.579.2. 593 1960 Unknown [id number] 2.16.840.1.848032.3.579.2. 593 1960 Unknown [id number] 2.16.840.1.118622.3.579.2. 593 1960 Unknown [id number] 2.16.840.1.381599.3.579.2. 593 1960 Unknown [id number] 2.16.840.1.939620.3.579.2. 593 1960 Unknown [id number] 2.16.840.1.913705.3.579.2. 593 1960 Unknown [id number] 2.16.840.1.841903.3.579.2. 1259 1960 Unknown [id number] 2.16.840.1.635426.3.579.2. 1259 1960 Unknown [id number] 2.16.840.1.539188.3.579.2. 1259 1960 Unknown [id number] 2.16.840.1.162991.3.579.2. 1259 1960 Unknown [id number] 2.16.840.1.976922.3.579.2. 1259 1960 Unknown [id number] 2.16.840.1.034338.3.579.2. 1259 1960 Unknown [id number] 2.16.840.1.334835.3.579.2. 1259 1960 Unknown [id number] 2.16.840.1.301316.3.579.2. 1259 1960 Unknown [id number] 2.16.840.1.349774.3.579.2. 1259 1960 Unknown [id number] 2.16.840.1.587208.3.579.2. 1259 1960 Unknown [id number] 2.16.840.1.981860.3.579.2. 1243 1960 Unknown [id number] 2.16.840.1.408454.3.579.2. 1246 1960 Unknown [id number] 2.16.840.1.901479.3.579.2. 1246 1960 Unknown [id number] 2.16.840.1.858846.3.579.2. 1246 1960 Unknown [id number] 2.16.840.1.286822.3.579.2. 1246 1960 Unknown [id number] 2.16.840.1.098099.3.579.2. 727 1960 Unknown [id number] 2.16.840.1.046127.3.579.2. 727 1960 Unknown [id number] 2.16.840.1.982419.3.579.2. 727 1959 Blue Cross Blue Shield [id number] 2.16.840.1.180038.19 1959 Unknown [id number] 1.2.840.766822.1.13.239.2. 7.3.694898.315 Unknown [id number] 2.16.840.1.415965.3.579.2. 531 Social History Date Type Detail Facility Start: 07-07-2021 End: 08-07-2022 Tobacco smoking status NVIS Never smoker [facility] Start: 07-07-2021 End: 08-07-2022 Tobacco use and exposure Never used [facility] Start: 1960 Sex Assigned At Not on file [employer] Work Phone: Start: 10-29-2021 End: 01-17-2025 Exposure to SARS-CoV-2 (event) Not sure [facility] Start: 03-13-2022 End: 08-05-2024 Alcohol intake Current drinker of alcohol (finding) [facility] Start: 07-28-2019 History SDOH Alcohol Comment 3 drinks per month [facility] Start: 03-05-2023 End: 06-27-2023 Sex Assigned At [facility] Start: 03-05-2023 End: 06-27-2023 History of Social function [facility] Adult Depression Screening Assessment 0 [facility] Start: 1960 Sex Assigned At Female F [facility] How often to you hav e a drink containing alcohol? 2-4 times a month [facility] How many standard dr inks containing alcohol do you have on a typical day? 1 or 2 [facility] How often do you hav e 6 or more drinks on 1 occasion? Never [facility] Start: 09-29-2023 Gender identity Identifies as female gender (finding) [facility] Start: 02-04-2019 End: 11-26-2024 Sex Female (finding) [facility] Sexual Orientation [facility] [place] Medical Equipment Procedure Code Equipment Code Equipment Origin al Text Equipment Identifier Dates Minimally invasive revision of total replacement of hip Orthopaedic bone screw, non-bioabsorbable, sterile [id number] FDA Start: 11-02-2021 Minimally invasive revision of total replacement of hip Acetabular shell ()[id number] FDA Start: 11-02-2021 Minimally invasive revision of total replacement of hip Non-constrained polyethylene acetabular liner ()[id number] FDA Start: 11-02-2021 Minimally invasive revision of total replacement of hip Acetabulum prosthesis hole plug ()[id number] FDA Start: 11-02-2021 Minimally invasive revision of total replacement of hip Ceramic femoral head prosthesis ()[id number] FDA Start: 11-02-2021 Minimally invasive revision of total replacement of hip Coated hip femur prosthesis, modular ()[id number] FDA Start: 11-02-2021 Arthroplasty, thumb Tendon/ligam ent bone anchor, non-bioabsorbable ()[id number] FDA Start: 09-14-2020 Functional Status Date Assessment Result Facility 03-29-2025 Functional Status N/A [facility] [place] 08-13-2019 Are you deaf, or do you have serious difficulty hearing No 08/13/2019 3:43 PM EDT Ariana Paredes RN No [facility] 08-13-2019 Are you blind, or do you have serious difficulty seeing, even when wearing glasses No 08/13/2019 3:43 PM EDT Ariana Paredes RN No [facility] 08-13-2019 Do you have serious difficulty walking or climbing stairs No 08/13/2019 3:43 PM EDT Ariana Paredes RN No [facility] 08-13-2019 Do you have difficul ty dressing or bathing No 08/13/2019 3:43 PM EDT Ariana Paredes RN No [facility] 08-13-2019 Because of a physica l, mental, or emotional condition, do you have difficulty doing errands alone such as visiting a physician's office or shopping No 08/13/2019 3:43 PM EDT Ariana Paredes RN No [facility] Mental Status Date Assessment Result Facility 08-13-2019 Because of a physica l, mental, or emotional condition, do you have serious difficulty concentrating, remembering, or making decisions No 08/13/2019 3:43 PM EDT Ariana Paredes RN No [facility] Clinical Notes 12-13-2021 to 06-07-2025 Dayan Christnia, RT(R) - 06/07/2025 1:20 PM [place] MD - 06/07/2025 11:21 AM [place] MD - 02/21/2025 11:08 AM Salud Barros MD - 01/17/2025 1:15 PM EST Note Date & Type Note Facility 06-07-2025 History of Present illness Narrative Radiology Service Progress Note PATIENT NAME: Isabel Waddell DATE OF SERVICE: June 07, 2025 TIME: 1:46 PM PATIENT IDENTITY VERIFICATION COMPLETED USING TWO (2) IDENTIFIERS: Name and Date of confirmed by patient verbally and Name and Date of confirmed by identification band. FALL SCREENING: Has the patient had 2 falls in the last year or 1 fall with injury or currently using an Ambulatory Assistive Device (Walker, Cane, Wheelchair, Crutches, etc.)? No PATIENT GENDER DATA: Assigned female at . status: : No status: NO. PATIENT RELEVANT IMPLANT DATA REVIEWED: Not Applicable PATIENT PRESENTS WITH AN IMPLANTABLE OR ATTACHED MANAGER CLINIC: No RADIOLOGY DEPARTMENT: General X-ray: Exam(s) Completed: Pelvis X-Ray: Pelvis with Hip Right PERIPHERAL IV DATA: Not applicable SIGNED BY: DAVID Harris) June 07, 2025 1:46 PM documented in this encounter [facility] 06-07-2025 Note HNO ID: [id number] Author: DAYAN CHRISTINA RT (R) Service: ? Author Type: Technologist Type: Progress Notes Filed: 06/07/2025 13:47 Note Text: Radiology Service Progress Note PATIENT NAME: Isabel Waddell DATE OF SERVICE: June 07, 2025 TIME: 1:46 PM PATIENT IDENTITY VERIFICATION COMPLETED USING TWO (2) IDENTIFIERS: Name and Date of confirmed by patient verbally and Name and Date of confirmed by identification band. FALL SCREENING: Has the patient had 2 falls in the last year or 1 fall with injury or currently using an Ambulatory Assistive Device (Walker, Cane, Wheelchair, Crutches, etc.)? No PATIENT GENDER DATA: Assigned female at . status: : No status: NO. PATIENT RELEVANT IMPLANT DATA REVIEWED: Not Applicable PATIENT PRESENTS WITH AN IMPLANTABLE OR ATTACHED MANAGER CLINIC: No RADIOLOGY DEPARTMENT: General X-ray: Exam(s) Completed: Pelvis X-Ray: Pelvis with Hip Right PERIPHERAL IV DATA: Not applicable SIGNED BY: DAVID Harris) June 07, 2025 1:46 PM [facility] 06-07-2025 Note HNO ID: [id number] Author: SOUTH BUENROSTRO MD Service: ? Author Type: Physician Type: Progress Notes Filed: 06/07/2025 13:59 Note Text: Established Patient Ortho Hip Consult Note ASSESSMENT AND PLAN: Impression: Right SHAAN aseptic loosening of stem Isabel Waddell is a 65-year-old female presenting with acute worsening of chronic pain in the groin and lower extremity. Isabel reports a sudden increase in pain since yesterday, describing it as intense and radiating from the groin down to the foot. The pain is accompanied by numbness and tingling sensations in the lower extremity, but is not sharp. She has a history of chronic pain, but notes that this recent exacerbation is more severe than usual. She had an MRI of the lumbar spine in November, which showed findings at L5-S1. She recalls experiencing similar symptoms earlier this year, which had subsided until the recent onset. She has been managing her pain with Aleve as needed, but is now requesting stronger medication due to the increased severity. She has a prescription for meloxicam at home, but has not been taking it recently. Isabel has a history of a hip implant and has been using crutches for protected weight bearing since February. She reports that her condition remained stable during this period, but has worsened since discontinuing the use of crutches. She denies smoking and has no history of diabetes. PLAN: 1. Mechanical loosening of internal right hip prosthetic joint, subsequent encounter (T84.030D) Pain in right hip (M25.551) Radiographic evidence of femoral component loosening observed. Patient reports persistent and worsening groin and hip pain, exacerbated by recent activities. Previous protected weight bearing did not alleviate symptoms. No history of smoking or diabetes. Original post-op x-ray images from October 2021 are not available for comparison. - Discussed risks and benefits of revision surgery; patient agrees and desires to proceed. - Scheduled revision surgery - Educated patient on post-operative precautions, including avoiding high-impact activities to prevent further loosening or dislocation. - Recommended resuming use of crutches if pain becomes unbearable. - Initiated Meloxicam once daily; advised discontinuation of Aleve and other NSAIDs. - Advised use of Tylenol as needed, contingent upon normal liver enzyme levels. - Will attempt to obtain original post-op x-ray images from [facility] for further evaluation. 2. Radiculopathy, lumbar region (M54.16) Symptoms of numbness and tingling extending to the foot, consistent with lumbar radiculopathy. Previous MRI in November showed potential nerve impingement at L5-S1. - Continue monitoring symptoms; no immediate intervention required. R SHAAN revision femoral versus both components Posterior approach (index surgery) Sung extraction instrument set ([employer]) Depuy corail stem -- insertion handle? Pencil tip chucho / Carbide tip chucho Cristi rai Naila res mod [address] - hip protocol Isabel Waddell has radiograph and physical exam evidence of degenerative joint disease and wishes to pursue surgery. This patient appears to have sufficient symptoms to warrant surgical intervention and is an appropriate candidate for right Primary Total Hip Arthroplasty as evidenced by six months of unsuccessful non-operative treatment as outlined in the HPI below and progressive symptoms. Progressive symptoms include: Pain impacting sleep or causing fatigue Pain worsened by weight bearing Pain effecting living situation Pain limiting ability to stay fit and healthy Unable to ambulate 2 blocks without significant pain and dysfunction. We had a lengthy discussion regarding the risk and benefit of surgery, the alternatives, limitations and personnel involved. These included but were not limited to infection, persistent pain, instability, nerve injury, blood clots, and medical complications. We also discussed the pre-operative course, surgery itself and rehabilitation. Galina-operative blood management and transfusion issues were discussed, and options clearly outlined. The patient has consented to the use of the banked allogenic blood if medically necessary. The patient has elected to schedule surgery at this time or intends to call the office with a surgical date. Shared decision making occurred while obtaining informed consent. The patient will be scheduled for a pre-operative education class at which time they will have their nasal swab completed and will be given CHG cloths along with the verbal and written instructions for their use. Patient has been instructed and has been scheduled or will call to schedule attendence in one of the total joint perioperative classes offered prior to proceeding with SHAAN.. ACTIVE PROBLEM LIST Abdominal Pain, Unspecified Site Hypertension History of Thyroid Disease Endometrial Cancer (Hcc) Prolactino (more content not included)... [facility] 06-07-2025 History of Present illness Narrative Established Patient Ortho Hip Consult Note ASSESSMENT & PLAN: Impression: Right SHAAN aseptic loosening of stem Isabel Waddell is a 65-year-old female presenting with acute worsening of chronic pain in the groin and lower extremity. Isabel reports a sudden increase in pain since yesterday, describing it as intense and radiating from the groin down to the foot. The pain is accompanied by numbness and tingling sensations in the lower extremity, but is not sharp. She has a history of chronic pain, but notes that this recent exacerbation is more severe than usual. She had an MRI of the lumbar spine in November, which showed findings at L5-S1. She recalls experiencing similar symptoms earlier this year, which had subsided until the recent onset. She has been managing her pain with Aleve as needed, but is now requesting stronger medication due to the increased severity. She has a prescription for meloxicam at home, but has not been taking it recently. Isabel has a history of a hip implant and has been using crutches for protected weight bearing since February. She reports that her condition remained stable during this period, but has worsened since discontinuing the use of crutches. She denies smoking and has no history of diabetes. PLAN: 1. Mechanical loosening of internal right hip prosthetic joint, subsequent encounter (T84.030D) Pain in right hip (M25.551) Radiographic evidence of femoral component loosening observed. Patient reports persistent and worsening groin and hip pain, exacerbated by recent activities. Previous protected weight bearing did not alleviate symptoms. No history of smoking or diabetes. Original post-op x-ray images from October 2021 are not available for comparison. - Discussed risks and benefits of revision surgery; patient agrees and desires to proceed. - Scheduled revision surgery - Educated patient on post-operative precautions, including avoiding high-impact activities to prevent further loosening or dislocation. - Recommended resuming use of crutches if pain becomes unbearable. - Initiated Meloxicam once daily; advised discontinuation of Aleve and other NSAIDs. - Advised use of Tylenol as needed, contingent upon normal liver enzyme levels. - Will attempt to obtain original post-op x-ray images from [facility] for further evaluation. 2. Radiculopathy, lumbar region (M54.16) Symptoms of numbness and tingling extending to the foot, consistent with lumbar radiculopathy. Previous MRI in November showed potential nerve impingement at L5-S1. - Continue monitoring symptoms; no immediate intervention required. R SHAAN revision femoral versus both components Posterior approach (index surgery) Sung extraction instrument set ([employer]) Depuy corail stem -- insertion handle? Pencil tip chucho / Carbide tip chucho Cristi rai Naila res mod [address] - hip protocol Isabel Waddell has radiograph and physical exam evidence of degenerative joint disease and wishes to pursue surgery. This patient appears to have sufficient symptoms to warrant surgical intervention and is an appropriate candidate for right Primary Total Hip Arthroplasty as evidenced by six months of unsuccessful non-operative treatment as outlined in the HPI below and progressive symptoms. Progressive symptoms include: Pain impacting sleep or causing fatigue Pain worsened by weight bearing Pain effecting living situation Pain limiting ability to stay fit and healthy Unable to ambulate 2 blocks without significant pain and dysfunction. We had a lengthy discussion regarding the risk and benefit of surgery, the alternatives, limitations and personnel involved. These included but were not limited to infection, persistent pain, instability, nerve injury, blood clots, and medical complications. We also discussed the pre-operative course, surgery itself and rehabilitation. Galina-operative blood management and transfusion issues were discussed, and options clearly outlined. The patient has consented to the use of the banked allogenic blood if medically necessary. The patient has elected to schedule surgery at this time or intends to call the office with a surgical date. Shared decision making occurred while obtaining informed consent. The patient will be scheduled for a pre-operative education class at which time they will have their nasal swab completed and will be given CHG cloths along with the verbal and written instructions for their use. Patient has been instructed and has been scheduled or will call to schedule attendence in one of the total joint perioperative classes offered prior to proceeding with SHAAN.. ACTIVE PROBLEM LIST Abdominal Pain, Unspecified Site Hypertension History of Thyroid Disease Endometrial Cancer (Hcc) Prolactinoma (Hcc) Radiation Proctitis Other Specified Anemias SUBJECTIVE CHIEF COMPLAINT: Hip Pain HPI: Isabel Waddell is a 65 year old patient here for evaluation and management of Right hip pain. Patient has had progressive problems with the hip(s) most of the day over the past 1 year(s) interfering with activities which include walking 2 blocks, enjoying hobbies, exercise, rising from a sitting position, getting in and out of a car, and climbing stairs. The problem began limiting activities 7-12 months ago. Total Joint Arthroplasty: Risk Calculator Isabel Waddell has a 8.58% chance of NOT returning home at discharge for a Primary total Hip replacement. Isabel's estimated Length of Stay is 1 day (Outpatient candidate). Isabel's 30 day chance of readmission is 1.58%. Readmission Probability 1.58 % (within 30 days following surgery) Estimated LOS 1 day Discharge Disposition Probability D/C to Home 91.42 % D/C to SNF 8.58 % These calculations are based on the following factors: - 65 years of age - sex is not male - BMI of 23.88 kg/m2 - [facility] score of 40 - 0 hospitalizations in the last 12 months - no history of heart disease - no history of diabetes - no history of COPD - history of anemia - preoperative ambulation: impaired community distances - 2 step(s) to enter home - bed location is on the first floor - bath location is on the first floor - caregiver is consistent - home is not more than 150 miles away - PROMIS-10 Mental Health T score 50+ - Marital status: PREVIOUS TREATMENTS: Current Anti-Inflammatory medications: meloxicam Past anti-inflammatory medications (not necessarily for this reason for visit): dexamethasone sodium phosphate, ibuprofen, ketorolac tromethamine, meloxicam Medical: OTC NSAIDS for 3 Months or Greater (Aleve) Physical Therapy: Activities Modified Previous Surgery: RTHA ~ 4 years ago w/ Dr. Dunn Risk Factors for Total Joint Arthroplasty (TJA) Obesity normal High: BMI > 40 Moderate: BMI 30-40 Normal: BMI < 30 Diabetes normal High: A1C > 8 Moderate: A1C 7-8 Normal: A1C < 7 Smoking normal High: Current smoker Normal: Non smoker Anemia High Risk High: Hgb < 11.5 (women) N/A: Hgb >= 11.5 (women) Nutritional Status normal High: Alb<3.4, or prealb<15, or serum transferrin<200, or total lymphocyte count<1500 Normal: normal labs COPD normal High: dx of COPD Normal: no dx of COPD MRSA normal High: dx of MRSA or positive lab test Normal: no MRSA CKD normal High: eGFR<60 Moderate: eGFR 60-89 Normal: eGFR>90 Hx of DVT / PE normal High: dx of DVT / PE Normal: no dx of DVT / PE Narcotics Use normal High:NarxCare >=300 Moderate: 100-299 Normal: 0-99 ANDREZ normal High: dx of ANDREZ N/A: no dx of ANDREZ Coagulation normal High:PT Sec>13, or PT INR>1.3, or APTT>32.4, or Plt ct<150k Moderate: on anticoag but none of the above Normal: none Anemia Hemoglobin (g/dL) Date Value 02/21/2025 15.1 09/02/2023 7.5 08/12/2019 13.1 07/12/2019 13.4 Other Risk Factors Active Cancer within 5 years PHYSICAL EXAM There were no vitals taken for this visit. All other systems deferred. GENERAL: Appears healthy, well-nourished, no deformities. HABITUS: Normal GAIT: Antalgic to the right HIP EXAM: Right: Posterior incision healed ROM: Extension: Normal Flexion: 110 degrees with groin pain Internal Rotation: 30 degrees with groin pain External Rotation: 30 degrees Abduction: 40 degrees Adduction: 30 degrees Strength: Abduction 5/5 and Flexion 4/5 Palpation: No tenderness Log roll: non-painful. Straight leg raise: Negative Neurovascular Status: Sensation Intact and Moves foot and ankle up & down DATA: Diagnostic tests reviewed for today's visit: Right hip X-Ray: loosening of the stem of the right SHAAN; no evidence of loosening at cup or screw SIGNATURE: South Buenrostro MD PATIENT NAME: Isabel Waddell DATE: June 07, 2025 TIME: 12:16 PM documented in this encounter [facility] 03-02-2025 Note General Surgery Offi ce/Clinic Note Chief Complaint consultation for lipomas HPI Staff 64 year old female presents on consultation from Dr. Serrano for multiple lipomas. Reports noting multiple lipomas to left arm. Most have been present for many years. Some have increased in size over time. None are tender or cause discomfort. History of Present Illness 64 yo female with h/o htn, asthma, Grave's disease, dilated cardiomyopathy, interstitial lung disease, endometrial cancer, pituitary tumor, lumbar radiculopathy, referred for multiple lipomas; patient with long h/o lipomas of left arm, increasing in size, sore at times, no overlying skin changes; h/o one removed in past. no asa or NSAID use; no tobacco use. Review of Systems PHQ Score Initial Depression Screen Score: 0 SCORE ROS - Provider Constitutional: no fever, no sweats, no weight loss. Eyes: no glasses, no blurred vision, no visual loss. ENMT: no dentures, no hoarseness, no swallowing difficulties, no hearing loss, no ear infection(s), no nose bleeds. Cardiovascular: normal blood pressure, no chest pain, regular heartbeat, no heart murmur. Respiratory: no shortness of breath, no cough, no asthma, no wheezing. Gastrointestinal: no nausea, no vomiting, no diarrhea, no constipation, no blood in stool, no change in bowel habits, no abdominal pain, no hepatitis. Genitourinary: no kidney stones, no urine infection, no dysuria. Musculoskeletal: no pain, no weakness. Skin: no changing moles, no rash, no skin lumps. Neurologic: no seizures, no epilepsy, no headache. Psychiatric: no emotional or psychiatric problem. Heme/Lymph: no bleeding problems, no anemia, no blood clots, no transfusions. Allergy/Immunologic: no swollen lymph nodes/glands, no IV drug abuse. Other: Additional ROS info: Except as noted in the above Review of Systems and in the History of Present Illness, all other systems have been reviewed and are negative or noncontributory. Physical Exam Vitals & Measurements HR: 72(Peripheral) RR: 16 BP: 126/96 HT: 66 in HT: 167 cm WT: 166.89 lb WT: 75.7 kg BMI: 27.14 HEENT: normal conjunctiva, sclera clear, no scleral icterus, EOM intact, PERRLA, oral mucosa moist without lesions. Musculoskeletal: normal gait, digits and nails without infection, nodes, cyanosis, clubbing. Skin: no rashes, no lesions, no ulcers, no left medial upper ar with 4 cm lobulated subcutaneous mass, soft, mobile, no overlying skin changes; medial left forearm with 2 cm subcutaneous, soft, mass; distal and mid forearm with several 1 cm and less size subcutaneous nodules, mobile. Psychiatric/Neuro: oriented to time, place, person, judgement normal, affect appropriate for age, insight intact, no focal deficits. Tests: review of old records completed , Discussed surgical options, risks, and possible complications with patient. Assessment/Plan 1. Benign lipomatous neoplasm of skin and subcutaneous tissue of left arm (D17.22: Benign lipomatous neoplasm of skin and subcutaneous tissue of left arm) plan excisional biopsy of left arm lipomas under local anesthesia at [facility], informed consent obtained. Follow-up No qualifying data available Problem List/Past Medical History Ongoing Anemia Asthma Benign lipomatous neoplasm of skin and subcutaneous tissue of left arm Benign neoplasm of pituitary gland BMI 27.0-27.9,adult Dilated cardiomyopathy Endometrial carcinoma Generalized anxiety disorder Graves disease HTN (hypertension) Interstitial lung disease Irritable bowel syndrome Left cardiac ventricular dilatation Lumbar radiculopathy Overweight Peripheral venous insufficiency Historical GERD - Gastro-esophageal reflux disease H/O esophagogastroduodenoscopy IBS - Irritable bowel syndrome Pituitary adenoma Procedure/Surgical History Abdominal hysterectomy (08/12/2019), Cystoscope (11/17/2007), Colonoscopy (11/17/1999), Esophagogastroduodenoscopy (11/17/1992), Arthroplasty of right hip, Arthroscopy of knee, Arthroscopy of shoulder, Caesarean section, Carpal tunnel release, section, section, Cholecystectomy, Excision of cyst of breast, Pituitary tumor, Thumb surgery. Medications calcium (as carbonate) 600 mg oral tablet, 600 mg= 1 tab(s), Oral, BID carvedilol 25 mg Tab, 25 mg= 1 tab(s), Oral, BID ibuprofen 800 mg Tab, 800 mg= 1 tab(s), Oral, TID, PRN lactobacillus acidophilus, 1 tab(s), Oral, Daily magnesium carbonate methimazole 10 mg Tab, 10 mg= 1 tab(s), Oral, Daily multivitamin, 1 tab(s), Oral, Daily venlafaxine 150 mg Cap-ER, 150 mg= 1 cap(s), Oral, Daily Vitamin B Complex oral capsule, 1 cap(s), Oral, Daily Allergies No Known Allergies No Known Medication Allergies Social History Alcohol - Denies Alcohol Use, 06/17/2019 Never., 03/01/2025 Substance Abuse - Denies Substance Abuse, 06/17/2019 Tobacco Never (less than 100 in lifetime) Tobacco Use:. Never Smokeless Tobacco Use:., 03/02/2025 Family History Dementia (more content not included)... [facility] Comment on above: Result Comment: Elec tronically Signed By: DESTINY SIEGEL, South Lr\.br\Date and Time Signed: 03/02/25 13:51 EDT 02-21-2025 Note HNO ID: [id number] Author: SOUTH BUENROSTRO MD Service: ? Author [...] October [address] Comer at [facility] orthopedics in [facility]. She has greater than 1 year history [...] surgeries or injections. She recently went to [place] a few weeks ago and had significant [...] diagnoses of os (more content not included)... [facility] 02-21-2025 History of Present illness Narrative Images [...] October [address] Comer at [facility] orthopedics in [facility]. She has greater than 1 year history [...] surgeries or injections. She recently went to [place] a few weeks ago and had significant [...] 150 mg by mouth daily at bedtime. [id number]-FISH OIL-L.CASEI ORAL Take by mouth once daily. [...] TIME: 11:09 AM documented in this encounter [facility] 01-17-2025 History of Present illness Narrative Images [...] improving overall. Does have upcoming trip to [facility] to go to the [facility]. Did not really have any issues with [...] in left forearm COMPARISON: None. ACCESSION NUMBER(S): [id number] ORDERING CLINICIAN: EDWARD BARROS FINDINGS: Three views left forearm: No acute osseous abnormality no fracture or dislocation appreciated. 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 No acute osseous abnormality MACRO: None Signed by: Edward Barros III 01/17/2025 2:00 PM Dictation workstation: [id number] EMG & nerve conduction Impression: Procedures Assessment: [...] I do recommend that patient follow-up with [facility] namely Dr. Efrain Cisneros or Maxim Buenrostro [...] questions were answered. documented in this encounter [facility] Work Phone: 01-13-2025 History of Present illness [...] [address] [place]atic[place] in [place]. She had always had some low-level pain [...] split dictation. -Antoni Carrion PA-C In a [id number] encounter, I performed a history and physical [...] MD Orthopedic surgery documented in this encounter [facility] Work Phone: 01-05-2025 Evaluation note Diagnosis Onset Date Resolution Endometrial cancer acute Februa ry 2024 10:59am SHERIF (generalized anxiety disorder) acute January 05, 2025 10:59am Graves disease acute December 182024 10:59am Hypertension acute December 10:59am Iron deficiency anemia acute Fe bruary 2024 10:59am Screening mammogram for breast cancer acute January 05, 025 10:59am Wellness examination acute Febr uary 2024 10:59am [facility] Work Phone: 1(887) 943-143201-24-2025 History of Present illness Narrative* Louis Sol PA-C - 12/10/2024 10:30 AM EST Chief Complaint Patient presents with Right Hip [...] workup postoperatively including lumbar spine x-ray and MRIwith negative significant findings. Has also had a [...] She primarily complains of pain about her hipas well as pain that does shoot all the way down into her leg which makes me do think that there mira component stemming from neuropathic etiology. Reportedly did [...] will follow-up with the orthopedic surgery spine teamto see if they have any recommendations regarding [...] patient's questions were answered. documented in this [facility] Work Phone: 1(379) 431-675601-16-2025 History of Present illness Narrative* IAN De La Torre - 12/02/2024 10:30 AM EST Images from the original note were not included. HISTORY OF PRESENT ILLNESS: EST PT Isabel Waddell is an 64 y.o. @ female. (EST PT) (R) SHAAN 11/02/21 (~3 YRS, 1 MONTH) PT HERE FOR MRI LUMBAR RESULTS XRAY LUMBAR 11/01/24 @ [facility] XRAYS RT HIP 11/01/24 IN PSYCHIATRIC MRI L-SPINE W/O 12/01/24 @[facility] BONE SCAN 03/19/24 @ [facility] S/P MDP 02/13/24 FINISHED PHYSICAL THERAPY ; [...] quality of life, including notable weakness with hipflexion and quad and hamstring flexion and extension. [...] any fevers or chills. A prior bone scandid not show evidence of prosthetic loosening, but [...] to try an SI joint injection with [facility]. Questions answered in laymen terms at the bedside. The diagnosis, home exercise plan and any ongoing restrictions/ recommendations reviewed. If unable to be reached in office, I recommend evaluation at nearest Emergency Room if any symptoms worsened or new symptoms develop for requiring urgent evaluation. documented in this encounterRanken Jordan Pediatric Special[facility] [id number] Evaluation note* Diagnosis Onset Date Resolution Status Admit Date Hypertension acute November 9:10am Acute bronchitis due to other specified organisms noneactive Januar y 2024 9:10am Endometrial cancer acute Februa ry 2024 10:59am SHERIF (generalized anxiety disorder) acute January 05, 10:59am Graves disease acute December 182024 10:59am Hypertension acute December 10:59am Screening mammogram for breast cancer acute January 05 10:59am Wellness examination acute 2024 10:59am [facility] Work Phone: 1(400) 353-756912-16-2024 History of Present illness Narrative* IAN De La Torre - 11/01/2024 10:30 AM EST Images from the original note were not included. HISTORY OF PRESENT ILLNESS: EST PT Isabel Waddell is an 64 y.o. @ female. (EST PT) HERE FOR YEARLY CHECK OF (R) SHAAN 11/02/21 (~3 YRS) XRAYS DONE TODAY, 11/01/24 IN EPIC BONE SCAN 03/19/24 @ [facility] S/P MDP 02/13/24 FINISHED PHYSICAL THERAPY [...] Future Standing Expiration Date: 11/01/2025 Scheduling Instructions: [facility] ; PLEASE CALL PT TO SCHEDULE (XRAYS BEING DONE TODAY, 11/01/24 @ [facility]) Order Specific Question: Reason for exam: [...] for requiring urgent evaluation. documented in this [facility]11-21-2024 History of Present illness Narrative* HAWA Marie - 10/07/2024 11:05 AM EST Skin Check [...] Examined Right arm Examined Patient wearing nail italian, Denies dark streaks on toenails Left arm [...] Next Visit: 1 year documented in this [facility]10-03-2024 NoteHNO ID: [id number] Author: MELODY MENA APRN.CNP Service: ? Author Type: Nurse Practitioner Type: Progress Notes Filed: 08/21/2024 11:16 Note Text: Attempted to call patient, no answer, message left to call back. Phone message also sent by Ernesto Chacko CNP. Will send mychart message. Melody Mena APRN.CNPTr[facility]ull [facility]10-03-[facility] History of Present illness Narrative* Melody Mena APRN.CNP - 08/19/2024 1:51 PM EDT Attempted to call patient, no answer, message left to call back. Phone message also sent by Ernesto Chacko CNP. Will send mychart message. Melody Mena APRN.CNP documented in this encounterUniversity [facility]als [facility]10-[facility]-2024 Telephone encounter Note * Telephone Encounter - Ernesto Chcako APRN.CNP - 08/18/2024 10:39 AM EDT Message left for patient. Pap test inconclusive. She should call the office if she has persistent bleeding. MRI if symptoms persist. Ernesto Chacko APRN.CNP [facility] Work Phone: 1(345) 910-852910-02-2024 Miscellaneous Notes* Telephone Encounter - Ernesto Chacko APRN.CNP - 08/18/2024 10:39 AM EDT Message left for patient. Pap test inconclusive. She should call the office if she has persistent bleeding. MRI if symptoms persist. Ernesto Chacko APRN.CNP documented in this encounterUniversity Hospitals [facility] Center09-30-2024 NoteUnsatisfactory for evaluation. Limited cellularity.[facility] Work Phone: 1(945) 578-902009-19-2024 History of Present illness Narrative* Henry Ramos MD - 08/05/2024 11:10 AM EDT Gynecologic Oncology [facility] Follow up visit Date of service: [...] and 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 The patient [...] by mouth daily at bedtime. ^Disp: ^Rfl: [id number]-AYI-FISH OIL-L.CASEI ORAL^Take by mouth once daily.^Disp: ^Rfl: [...] taking: Reported on 06/27/2023) INTERVAL HISTORY: Isabel Wdadell reports that she feels good. She presents [...] discussed with the Patient or Patient's Authorized Electric Engine Mechanic. Asapplicable, any other physician, advance practice provider, medical student, or other health professional student that will be observing or involved in the sensitive examination for educational or training purposes was discussed with the Patient or Authorized Electric Engine Mechanic. The Patient or Authorized Electric Engine Mechanic has agreed to proceed with the sensitive [...] EXTREMITIES: Not tender. No ulcers or swelling. Hearing Therapist for exam: Melody Mena APRN.AIRCRAFT INSPECTION RECORD CLERK RESULTS: CA 125 (U/mL) Date Value 12/13/2021 [...] - Referral to [facility] - Mammogram gets this done locally, will review with PCP - Colonoscopy due, will review with PCP Dee Dee Carter APRN.AIRCRAFT INSPECTION RECORD CLERK 05/30/2021 Distance Health Visit 61 yo female [...] has any questions or concerns. Dee Dee Raul, BETTY.AIRCRAFT INSPECTION RECORD CLERK 06/06/2021 61 yo female with h/o Stage [...] her today already. Test vaginal lesion for ER/GA receptors See me September 19 for post [...] hyperthyroidism, advised follow up with PCP and Meat Smoker. Ernesto Chacko, BETTY.AIRCRAFT INSPECTION RECORD CLERK 03/13/2022 Recurrent Endometrial cancer with recurrence in [...] Recommend she start following with a F retread operator for her rectal bleeding. We will assistwith [...] which included preparing to see the patient, [id number] patient care, completing clinical documentation, obtaining and/or [...] 16, 2024 12:40 PM documented in this encounterUniversity Hospitals [facility]09-19-2024 NoteHNO ID: [id number] Author: HENRY RAMOS MD Service: ? Author Type: Physician Type: Progress Notes Filed: 08/16/2024 12:41 Note Text: Gynecologic Oncology [facility] Follow up visit Date of service: [...] and 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 The patient [...] by mouth daily at bedtime. Disp: Rfl: [id number]-AXJ-VSE-FISH OIL-L.CASEI ORALTake by mouth once daily.Disp: Rfl: Lactobac no.41/Bifidobact no.7 (PROBIOTIC-10 ORAL)Take by mouth once daily.Disp: Rfl: MULTIVITAMIN TABTake by mouth.Disp: Rfl: 0 B COMPLEX VITAMINS CAPTake one(1) capsule daily.Disp: Rfl: 0 CALCIUM CARBONATE-VIT D3-MINERALS 600 MG-400 UNIT TABTake 1 tablet by mouth two times a day.Disp: Rfl: 0 acetaminophen (TYLENOL) 500 mg tabletTake 1-2 tablets by mouth (more content not included)...[facility]09-18-2024 Telephone encounter Note* Telephone Encounter - Kathryn Painter RN - 08/04/2024 2:55 PM EDT Called pt regarding msg. Pt c/o spotting. Pt has not been using a pad or panty liner. States that she is having some bright red blood with wiping. Pt accepted f/u appt to RTC with Dr. Ramos for tomorrow 08/05 at 11:10am. Msg sent to scheduling. [facility]09-18-2024 Miscellaneous Notes* Telephone Encounter - Kathryn Painter RN - 08/04/2024 2:55 PM EDT Called pt regarding msg. Pt c/o spotting. Pt has not been using a pad or panty liner. States that she is having some bright red blood with wiping. Pt accepted f/u appt to RTC with Dr. Ramos for tomorrow 08/05 at 11:10am. Msg sent to scheduling. documented in this encounterUniversity Hospitals [facility] Center12-07-2023 Evaluation note* Encounter Date Diagnosis Assessment Notes Treatment Notes Treatment Clinical Notes Oct, Iron deficiency anemia due to chronic blood loss (ICD-10 - D50.0) Oct, Decreased thyroid stimulating hormone (TSH) level (ICD-10 - R79.89) Oct, Pulmonary hypertension (ICD-10 - I27.20) dakick Other 11-13-2023 History of Present illness Narrative* [...] of treatment plan: low documented in this encounterUniversity Hospitals [facility] Center11-05-2023 Evaluation note* Encounter Date Diagnosis Assessment Notes Treatment Notes Treatment Clinical Notes Sep, Iron deficiency anemia due to chronic blood loss (ICD-10 - D50.0) Sep, 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) dakick Other 11-01-2023 Evaluation note* Encounter Date Diagnosis Assessment Notes Treatment Notes Treatment Clinical Notes Sep, Elevated liver enzymes (ICD-10 - R74.8) Sep, Cholestasis (ICD-10 - K83.1) Sep, Thyrotoxicosis 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 storm, 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 - E05.90) [facility] Other 10-30-2023 Evaluation note* Encounter Date Diagnosis Assessment Notes Treatment Notes Treatment Clinical Notes Aug, Decreased thyroid stimulating hormone (TSH) level (ICD-10 - R79.89) dakick Other 10-27-2023 Evaluation note* Encounter Date Diagnosis [...] Ferritin May be candidate for Fe IV dak[facility] Other 10-18-2023 Evaluation note* Encounter Date Diagnosis Assessment Notes Treatment Notes Treatment Clinical Notes Aug, Radiation proctitis (ICD-10 - K62.7) Aug, Iron deficiency anemia due to chronic blood loss (ICD-10 - D50.0) dakick Other 10-16-2023 Evaluation note* Encounter Date Diagnosis Assessment Notes Treatment Notes Treatment Clinical Notes Aug, Dilated cardiomyopathy (ICD-10 - I42.0) Echo: LVEF normal, RVSP 31, LAE [facility] Other 10-13-2023 History and physical note* Rachel Galan, BETTY.AIRCRAFT INSPECTION RECORD CLERK - 08/29/2023 11:00 AM EDT COLON AND [...] of treatment plan: high documented in this encounterUniversity Hospitals Cleveland [facility] Center10-13-2023 History of Present illness Narrative* Heidi Lindquist MD - 08/29/2023 10:00 AM EDT Images from the original note were not included. Ms. Waddell is a 63 year old female who presents to the [facility]. 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 Hobbies:Biking Vacation: [place], [place] No significant exposure history except local [...] MULTIVITAMIN TAB^Take one(1) tablet daily.^Disp: ^Rfl: 0 [id number]-PYM-RZC-FISH OIL-L.CASEI ORAL^Take by mouth once daily.^Disp: ^Rfl: [...] personally reviewed by me Data Reviewed from PSYCHIATRIC (in addition to that noted in HPI, [...] MD Pulmonary and Critical Care Fellow Respiratory [facility] Staff note: I have personally interviewed and [...] Hilton Adame MD 08/29/2023 documented in this encounterUniversity Hospitals Cleveland [facility] Center10-13-2023 History of Present illness Narrative* Sveta Roman RRT - 08/29/2023 9:52 AM EDT PULM FUNCTION SMARTBLOCK: Provider: Mike Presley MD Spirometry: 1 DLCO: 1 LV - Box: 1 documented in this encounterUniversity Hospitals Cleveland Medical Center10-13-2023 History of Present illness Narrative* Marshal aVsquez, RT(R) - 08/29/2023 9:00 AM EDT Radiology [...] 29, 2023 9:10 AM documented in this encounterUniversity Hospitals [facility] Center10-10-2023 History of Present illness Narrative* Gilberto Beth - 08/26/2023 4:16 PM EDT Sang to pair w dlco/lv on upcoming f/u visit documented in this encounterUniversity Hospitals Cleveland [facility] Center10-06-2023 History of Present illness Narrative* Nuvia Grewal [...] 22, 2023 8:33 AM documented in this encounterUniversity Hospitals [facility] Center09-18-2023 Evaluation note* Encounter Date Diagnosis [...] symptoms. Will initiate antibiotics and have called [facility]. Since her symptoms developed > 5 days ago, no Paxlovid has been prescribed Jul, Bronchitis, not specified as acute or chronic (ICD-10 - J40) Instructed to use Robitussin or Mucinex for cough, saline or Flonase NS for congestion, Tylenol for pain and fever. [facility] Other 09-05-2023 Miscellaneous Notes* Telephone Encounter - Divya Karimi - 07/22/2023 3:17 PM EDT Isabel Waddell accepts 09/01 and 09/02 dates for preop and surgery documented in this [facility]09-05-2023 Miscellaneous Notes* Telephone Encounter - Enid Baker - 07/22/2023 2:48 PM EDT [phone] Patient calling to reschedule her EUA. documented in this [facility]08-22-2023 Evaluation note* Encounter Date Diagnosis Assessment Notes Treatment Notes Treatment Clinical Notes Jun, SHERIF (generalized anxiety disorder) (ICD-10 - F41.1) dakick Other 08-18-2023 History and physical note* South [...] reports regular bowel movements. 03/05/23 Cherelle Medina, AIRCRAFT INSPECTION RECORD CLERK: Isabel Waddell is a 62 year old [...] 150 mg by mouth daily at bedtime. [id number]-[facility]-FISH OIL-L.CASEI ORAL Take by mouth once daily. [...] Documents Reviewed/ordered: Review of prior notes from [facility] FURNACE OPERATOR/ONC, pulmonary medicine Review of prior operative [...] of treatment plan: high documented in this encounterUniversity Hospitals Cleveland Medical [facility] History of Present illness Narrative* Heidi Lindquist MD - 06/27/2023 10:29 AM EDT Images from the original note were not included. Ms. Waddell is a 63 year old female who presents to the [facility]. Consultation requested by Self. 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 Silica: No significant exposure. Steele: No significant exposure. Organic HP antigen: No [...] 150 mg by mouth daily at bedtime. [id number]-FISH OIL-L.CASEI ORAL Take by mouth once daily. [...] personally reviewed by me Data Reviewed from PSYCHIATRIC (in addition to that noted in HPI, [...] MD Pulmonary and Critical Care Fellow [facility] STAFF ATTENDING NOTE I have personally interviewed [...] Mike Gates MD 06/29/2023 documented in this encounterUniversity Hospitals Cleveland [facility] Center08-11-2023 History of Present illness Narrative* Dayan Marley RRT - 06/27/2023 10:26 AM EDT PULM FUNCTION SMARTBLOCK: Provider: Davis Page MD Spirometry: 1 System: 3 - [id number] documented in this encounterUniversity Hospitals Cleveland Medical Center07-07-2023 Evaluation note* Encounter Date Diagnosis [...] and feet daily for blisters and ulcerations. dakick Other 06-27-2023 Evaluation note* Encounter Date Diagnosis Assessment Notes Treatment Notes Treatment Clinical Notes Apr, History of total right hip replacement (ICD-10 - Z96.641) dakick Other 06-07-2023 Evaluation note* Encounter Date Diagnosis [...] F41.1) Healthy diet, exercise and keep active dakick Other 2023 Evaluation note* Encounter Date Diagnosis Assessment Notes Treatment Notes Treatment Clinical Notes March, Mild intermittent asthma without complication (ICD-10 - J45.20) dakick Other 05-05-2023 Evaluation note* Encounter Date Diagnosis Assessment Notes Treatment Notes Treatment Clinical Notes March, Dyspnea on exertion (ICD-10 - R06.09) dakick Other 04-24-2023 Evaluation note* Encounter Date Diagnosis Assessment Notes Treatment Notes Treatment Clinical Notes Feb, Shortness of breath (ICD-10 - R06.02) Feb, Subacute cough (ICD-10 - R05.2) dakick Other 04-19-2023 Instructions* Patient Instructions* Cherelle Medina APRN.CNP - 03/05/2023 9:47 AM EDT Images from the original note were not included. Thank you for seeing me in clinic today. As we discussed, my recommendations are as follows: 1.Colonoscopy If you have any questions about the above treatment plan, please do not hesitate to call the officeor send me a [employer] message. Bowel Preparation Instructions for: Miralax-Gatorade Preparations [...] If you do not have a responsible otr company driver (family member or friend) withyou to take you home, your exam cannot be done with sedation and will be cancelled. Please bring a list of all of your current medications, including any Bpbb-llp-Hjfxrvf medications with you. Medications If you take [...] your exam. 2 10/2019 documented in this encounterUniversity Hospitals Cleveland Medical Center04-19-2023 History and physical note * Cherelle Medina APRN.MONSERRAT - 03/05/2023 9:40 AM EDT Consultation requested [...] Abs Lymph 1.00 - 4.00 k/uL 1.31 Denton% % 11.1 Abs Denton <0.87 k/uL 0.50 Eosin% % 3.1 Abs [...] 150 mg by mouth daily at bedtime. [id number]-FISH OIL-L.CASEI ORAL Take by mouth once daily. [...] -radiation proctitis?? This note was dictated using Re[employer]ise speech recognition software and may contain some errors that were a result of the program not accurately transcribing what was dictated. Cherelle Medina APRN.MONSERRAT documented in this encounterUniversity Hospitals Cleveland Medical Center03-10-2023 Evaluation note* Encounter Date Diagnosis Assessment Notes Treatment Notes Treatment Clinical Notes Jan, Acute bronchitis due to other specified organisms (ICD-10 - J20.8) Instructed to use Robitussin or Mucinex for cough, saline or Flonase NS for congestion, Tylenol for pain and fever. dakick Other 03-06-2023 Evaluation note* Encounter Date Diagnosis [...] weeks for the cough to go away dakick Other 02-17-2023 History of Present illness Narrative* Henry Ramos MD - 01/03/2023 3:20 PM EST Gynecologic Oncology [facility] Follow up visit Date of service: [...] and 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 The patient [...] 150 mg by mouth daily at bedtime. [id number]-FISH OIL-L.CASEI ORAL Take by mouth once daily. [...] has a trip planned to [facility] next week for 10 days. [...] or swelling. Deep tendon reflexes are present Hearing Therapist for exam: Shelli Villarreal APRN.CNP RESULTS: CA 125 (U/mL) Date Value 12/13/2021 9 06/04/2021 8 07/12/2019 15 No new results to review ASSESSMENT & PLAN: 05/25/2021-Dee Dee Carter APRN.AIRCRAFT INSPECTION RECORD CLERK [place] endometrioid type endometrial adenocarcinoma, FIGO grade [...] review with PCP 05/30/2021- Dee Dee Carter APRN.AIRCRAFT INSPECTION RECORD CLERK (distance health visit) 61 yo female with [...] her today already. Test vaginal lesion for ER/GA receptors See me September 19 for post [...] hyperthyroidism, advised follow up with PCP and Meat Smoker. Ernesto Chacko APRN.AIRCRAFT INSPECTION RECORD CLERK 03/13/2022 Recurrent Endometrial cancer with recurrence in [...] Recommend she start following with a F retread operator for her rectal bleeding. We will assistwith [...] 03, 2023 4:37 PM documented in this encounterUniversity Hospitals Cleveland Medical Center02-08-2023 Miscellaneous Notes* Telephone Encounter - Aretha Pena RN - 12/25/2022 2:21 PM EST Call placed to pt. No answer. Detailed VM left explaining that she is due for follow up with Gail anyway so he would like to see [...] at 12/25/2022 12:04 PM EST ----- Regarding: Gail Patient bleeding and clotting almost daily since Colonoscopy. September was the Colonoscopy. Concerned and would like to know if she should schedule an appointment. [phone] documented in this encounterUniversity Hospitals Cleveland Medical Center11-10-2022 Nurse Note* Francisca Gómez RN [...] RN In Department: GASTROENTEROLOGY documented in this encounterUniversity Hospitals Cleveland Medical Center11-10-2022 Miscellaneous Notes* Sedation Documentation - Aretha Deluna RN - 09/26/2022 12:00 PM EST Grounding pad placed at right flank. Skin Intact. LOT#[id number]. documented in this encounterUniversity Hospitals Cleveland Medical Center11-03-2022 Miscellaneous Notes* Telephone Encounter - Kelly Ch MA - 09/19/2022 3:49 PM EDT Attempted to reach the patient at the contact number that they provided [phone] (home) . 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 2 10/2019 documented in this encounterUniversity Hospitals Cleveland Medical Center09-21-2022 History of Present illness Narrative* Henry Ramos MD - 08/07/2022 3:20 PM EDT Gynecologic Oncology [facility] Follow up visit Date of service: [...] and 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 The patient [...] 150 mg by mouth daily at bedtime. [id number]-FISH OIL-L.CASEI ORAL Take by mouth once daily. [...] groin. LOWER EXTREMITIES: No swelling or edema. Hearing Therapist for exam: Promise Mclaughlin MA RESULTS: 05/25/2021 - VAGINAL BIOPSY Vagina, biopsy - Consistent with endometrioid adenocarcinoma (see comment). THELMA/fiorella 05/28/2021 COMMENT The tumor cells are diffusely and 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 The patient [...] dedicated report for findings in the abdomen Cyber Crime Investigator (topogram) images: None CA 125 (U/mL) Date Value 12/13/2021 9 06/04/2021 8 07/12/2019 15 ASSESSMENT & PLAN: 05/25/2021-Dee Dee Carter APRN.AIRCRAFT INSPECTION RECORD CLERK [place] endometrioid type endometrial adenocarcinoma, FIGO grade [...] review with PCP 05/30/2021- Dee Dee Carter APRN.AIRCRAFT INSPECTION RECORD CLERK (distance health visit) 61 yo female with [...] her today already. Test vaginal lesion for ER/GA receptors See me September 19 for post [...] hyperthyroidism, advised follow up with PCP and Meat Smoker. Ernesto Chacko APRN.AIRCRAFT INSPECTION RECORD CLERK 03/13/2022 Recurrent Endometrial cancer with recurrence in [...] 07, 2022 4:19 PM documented in this encounterUniversity Hospitals Cleveland Medical Center04-27-2022 History of Present illness Narrative* Henry Ramos MD - 03/13/2022 2:50 PM EDT Gynecologic Oncology [facility] Follow up visit Date of service: [...] and 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 The patient [...] HX Right 1984 breast cysts COLONOSCOPY 2002 DILATION & CURETTAGE [...] 150 mg by mouth daily at bedtime. [id number]-FISH OIL-L.CASEI ORAL Take by mouth once daily. [...] absent LOWER EXTREMITIES: No swelling or edema. Hearing Therapist for exam: Modlo RESULTS: 05/25/2021 - VAGINAL BIOPSY Vagina, biopsy - Consistent with endometrioid adenocarcinoma (see comment). GZ/ka 05/28/2021 COMMENT The tumor cells are diffusely and 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 The patient [...] dedicated report for findings in the abdomen Cyber Crime Investigator (topogram) images: None CA 125 (U/mL) Date Value 12/13/2021 9 06/04/2021 8 07/12/2019 15 ASSESSMENT & PLAN: 05/25/2021-Dee Dee Carter APRN.AIRCRAFT INSPECTION RECORD CLERK [place] endometrioid type endometrial adenocarcinoma, FIGO grade [...] review with PCP 05/30/2021- Dee Dee Carter APRN.AIRCRAFT INSPECTION RECORD CLERK (distance health visit) 61 yo female with [...] her today already. Test vaginal lesion for ER/GA receptors See ne September 19 for post treatment exam. 11/28/2021 [...] hyperthyroidism, advised follow up with PCP and Meat Smoker. Ernesto Chacko APRN.MONSERRAT 03/13/2022 Recurrent Endometrial cancer with recurrence in [...] Past Histories independently gathered by the clinical ground crewman mission support and the remaining scribed note accurately describes my personal service to the patient. documented in this encounterUniversity Hospitals Cleveland Medical Center01-27-2022 History of Present illness Narrative* [...] and Intact, Site disposition Discontinued SIGNED BY: Gibson Bob RT(R) December 13, 2021 9:35 AM documented in this encounterMer[facility] No data available for this section [facility] General Surgery [place] Evaluation note* Diagnosis Dizziness- Primary Dizziness and giddiness Dehydration documented in this encounter [employer] Work Phone: evaluation note* Diagnosis Recurrent carcinoma of endometrium (HCC)- Primary Malignant neoplasm of corpus uteri, except isthmus Vaginal atrophy Postmenopausal atrophic vaginitis Foreshortening of vagina documented [facility]* Diagnosis Recurrent carcinoma of endometrium (HCC)- Primary Malignant neoplasm of corpus uteri, except isthmus Radiation proctitis Other specified disorder of rectum and anus Foreshortening of vagina Endometrial cancer (HCC) Malignant neoplasm of corpus uteri, except isthmus Vaginal atrophy Postmenopausal atrophic vaginitis Rectal bleeding Hemorrhage of rectum and anus documented in this [facility] note* Diagnosis History of thyroid disease- Primary Personal history of other endocrine, metabolic, and immunity disorders Rectal bleeding Hemorrhage of rectum and anus documented in this encounter [facility] note* Diagnosis Recurrent carcinoma of endometrium (HCC)- Primary Malignant neoplasm of corpus uteri, except isthmus Radiation proctitis Other specified disorder of rectum and anus Blood per rectum Hemorrhage of rectum and anus documented in this encounter [facility] noteNo [employer] Other Evaluation note* Diagnosis Rectal bleeding- Primary Hemorrhage of rectum and anus documented in this encounter [facility] note* Diagnosis Radiation proctitis- Primary Other specified disorder of rectum and anus documented in this encounter [facility] note* Diagnosis Dyspnea, unspecified type- Primary documented in this encounter [facility] note* Diagnosis 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) documented in this encounter [facility] note* Diagnosis Radiation proctitis- Primary Other specified disorder of rectum and anus [facility]* Diagnosis Endometrial cancer (HCC)- Primary Malignant neoplasm of corpus uteri, except isthmus Radiation proctitis Other specified disorder of rectum and anus Radiation proctitis Other specified disorder of rectum and anus [facility]* Diagnosis Radiation proctitis- Primary Other specified disorder of rectum and anus [facility]* Diagnosis ILD (interstitial lung disease) (HCC)- Primary Postinflammatory pulmonary fibrosis Radiation proctitis Other specified disorder of rectum and anus [facility]* Diagnosis ILD (interstitial lung disease) (HCC) Postinflammatory pulmonary fibrosis Radiation proctitis Other specified disorder of rectum and anus [facility]* Diagnosis Interstitial pulmonary disease (HCC) Postinflammatory pulmonary fibrosis Radiation proctitis Other specified disorder of rectum and anus [facility]* Diagnosis Dyspnea and respiratory abnormalities- Primary Other dyspnea and respiratory abnormality Calcified nodule Localized superficial swelling, mass, or lump Iron deficiency anemia due to chronic blood loss Iron deficiency anemia secondary to blood loss (chronic) Radiation proctitis Other specified disorder of rectum and anus [facility]* Diagnosis Dyspnea, unspecified type Radiation proctitis Other specified disorder of rectum and anus [facility]* Diagnosis Pre-op evaluation- Primary Preoperative examination, unspecified Radiation proctitis Other specified disorder of rectum and anus [facility]* Diagnosis Interstitial pulmonary disease (HCC) Postinflammatory pulmonary fibrosis [facility]* Diagnosis Radiation proctitis- Primary Other specified disorder of rectum and anus Endometrial cancer (HCC) Malignant neoplasm of corpus uteri, except isthmus documented [facility]* Diagnosis Onset Date Resolution Status Graves disease acute Hypertension acute Thyrotoxicosis acute [facility] Work Phone: Evaluation note* Diagnosis Preoperative examination- [...] anus documented in this encounter [facility]* Diagnosis Preoperative examination- Primary Preoperative examination, unspecified Endometrial cancer (HCC) Malignant neoplasm of corpus uteri, except isthmus Essential hypertension Unspecified essential hypertension History of thyroid disease Personal history of other endocrine, metabolic, and immunity disorders Malignant neoplasm of endometrium (HCC) Malignant neoplasm of corpus uteri, except isthmus documented in this encounter [facility]* Diagnosis Preoperative examination- Primary Preoperative examination, unspecified Endometrial cancer (HCC) Malignant neoplasm of corpus uteri, except isthmus Essential hypertension Unspecified essential hypertension History of thyroid disease Personal history of other endocrine, metabolic, and immunity disorders NO SHOW- Primary documented in this encounter [facility]* Diagnosis Seborrheic keratosis- Primary Melanocytic nevus of trunk Benign neoplasm of skin of trunk, except scrotum [facility] Diagnosis History of right hip replacement- Primary Acute pain of right hip Lumbar radiculopathy, right documented in this encounter [facility] HealthcareEvaluation noteNo assessment information availableUniversity Hospitals [facility] Work Phone: Evaluation note* Diagnosis Acute pain of right hip- Primary History of right hip replacement Lumbar radiculopathy, right Sacroiliac joint pain Disorders of sacrum Right leg weakness Muscle weakness (generalized) Right leg paresthesias Disturbance of skin sensation [facility] Diagnosis Lumbar radiculopathy- Primary Thoracic or lumbosacral neuritis or radiculitis, unspecified Right hip pain Pain in joint, pelvic region and thigh documented in this encounter [facility] Work Phone: Evaluation note* Diagnosis Lumbar radiculopathy Thoracic or lumbosacral neuritis or radiculitis, unspecified documented in this encounter [facility] Work Phone: Evaluation note* Diagnosis Lumbar pain- Primary Lumbago Trochanteric bursitis of right hip documented in this encounter [facility] Work Phone: Evaluation note* Diagnosis Chronic hip pain after total replacement of right hip joint- Primary Left forearm pain Left forearm pain documented in this encounter [facility] Work Phone: Evaluation note* Diagnosis Left forearm pain documented in this encounter [facility] Work Phone: Evaluation note* Diagnosis Preoperative examination- [...] thigh documented in this encounter [facility]* Diagnosis Preoperative examination- Primary Preoperative examination, unspecified Endometrial cancer (HCC) Malignant neoplasm of corpus uteri, except isthmus Essential hypertension Unspecified essential hypertension History of thyroid disease Personal history of other endocrine, metabolic, and immunity disorders Pain in right hip Pain in joint, pelvic region and thigh documented in this encounter [facility]* Diagnosis Onset Date Resolution Status Admit Date Endometrial cancer acute April 182024 9:29am SHERIF (generalized anxiety disorder) acute May 12, 2025 9:29am Graves disease acute May 12, 2025 9:29am Hypertension acute May 12, 9:29am Iron deficiency anemia acute 2024 9:29am [facility] Work Phone: Evaluation note* Diagnosis Preoperative examination- Primary Preoperative examination, unspecified Endometrial cancer (HCC) Malignant neoplasm of corpus uteri, except isthmus Essential hypertension Unspecified essential hypertension History of thyroid disease Personal history of other endocrine, metabolic, and immunity disorders Mechanical loosening of internal right hip prosthetic joint, subsequent encounter- Primary Pain in right hip Pain in joint, pelvic region and thigh Radiculopathy, lumbar region Thoracic or lumbosacral neuritis or radiculitis, unspecified Pain in right hip Pain in joint, pelvic region and thigh Mechanical loosening of internal right hip prosthetic joint, subsequent encounter documented in this encounter [facility]* Diagnosis Preoperative examination- Primary Preoperative examination, unspecified Endometrial cancer (HCC) Malignant neoplasm of corpus uteri, except isthmus Essential hypertension Unspecified essential hypertension History of thyroid disease Personal history of other endocrine, metabolic, and immunity disorders Pain in right hip Pain in joint, pelvic region and thigh Mechanical loosening of internal right hip prosthetic joint, subsequent encounter documented in this encounter [facility] Narrative - Reported* Type Description Date Medical History menopause Medical History endometrial cancer hx Surgical History Bilateral Knee Scope Surgical History Bilateral Shoulder Scope Surgical History Bilateral Carpal Tunnel Surgical History x 3 Surgical History Pituatary Tumor Surgical History hysterectomy Surgical History right thumb excision of trapezi um 09/14/2020 dakick Other [employer] general Narrative - Reported* Type Description Date Medical History menopause Medical History endometrial cancer hx Surgical History Bilateral Knee Scope Surgical History Bilateral Shoulder Scope Surgical History Bilateral Carpal Tunnel Surgical History x 3 Surgical History Pituatary Tumor Surgical History hysterectomy Surgical History right thumb excision of trapezi um 09/14/2020 Hospitalization History see surgical history dakick Other [employer] general Narrative - Reported* Type Description Date Medical History menopause Medical History endometrial cancer hx Medical History Dilated Cardiomyopathy Surgical History Bilateral Knee Scope Surgical History Bilateral Shoulder Scope Surgical History Bilateral Carpal Tunnel Surgical History x 3 Surgical History Pituatary Tumor Surgical History hysterectomy Surgical History right thumb excision of trapezi um 09/14/2020 Hospitalization History see surgical history dakick Other [employer] general Narrative - Reported* Type Description Date Medical History menopause Medical History endometrial cancer hx Medical History Dilated Cardiomyopathy Surgical History Bilateral Knee Scope Surgical History Bilateral Shoulder Scope Surgical History Bilateral Carpal Tunnel Surgical History x 3 Surgical History Pituatary Tumor Surgical History hysterectomy Surgical History right thumb excision of trapezi um 09/14/2020 Surgical History Sigmoidoscopy 08/2023 Hospitalization History see surgical history dakick Other [facility] general Narrative - Reported* Type Description Date [...] Sigmoidoscopy 08/2023 Hospitalization History see surgical history dakick Other Hospital Discharge instructions* Attachments The following attachments cannot be sent through Care Everywhere. * Dehydration (Emirati) * Oral Rehydration (Emirati) documented in this [facility] Work Phone: Hospital Discharge instructions No data available for this section [facility] Surgery [place] Progress note No data available for this section [facility] Surgery [place] Reason for referral (narrative)* Outpatient Procedure (Routine) - Closed Specialty Diagnoses / Procedures Referred By Contac t Referred To Contact DIGESTIVE DISEASE NAZARETH Diagnoses Rectal bleeding Procedures COLONOSCOPY SCREENING COLONOSCOPY FLX DX W/COLLJ SPEC WHEN PFErnesto Iglesias APRN.CNP [address] [place] [address] [address] Referral ID Status Reason Start Date Expiration Date V isits Requested Visits Authorized [id number] Closed Auto-Generate d Referral 08/07/2022 08/07/2023 1 1 [facility] for referral (narrative)* Outpatient Procedure (Routine) - Pending Review Specialty Diagnoses / Procedures Referred By Contac t Referred To Contact [facility] Diagnoses Rectal bleeding Procedures COLONOSCOPY (THERAPEUTIC) COLONOSCOPY FLX ABLATION TUMOR POLYP/OTHER Cherelle Mendoza APRN.CNP [address] [place] [address] [place] [address] [address] Referral ID Status Reason Start Date Expiration Date Visits Requested Visits Authorized [id number] Pending Review Auto-Generat ed Referral 03/05/2023 03/05/2024 1 1 [facility] for referral (narrative)* Outpatient Procedure (Routine) - Authorized Specialty Diagnoses / Procedures Referred By Contac t Referred To Contact [facility] Diagnoses Other secondary pulmonary hypertension (HCC) Procedures ECHO ECHO TTHRC R-T 2D W/WOM-MODE COMPL SPEC&COLR D Mike Presley MD [address] [address] [facility] [address] [place] [address] Referral ID Status Reason Start Date Expiration Date Visits Requested Visits Authorized [id number] Authorized Auto-Generat ed Referral 06/27/2023 06/26/2024 1 1 * Diagnostic Procedure Only (Routine) - Pending Review Specialty Diagnoses / Procedures Referred By Contac t Referred To Contact MOLECULAR & FUNCTIONAL IMAGING Diagnoses Other secondary pulmonary hypertension (HCC) Procedures NM LUNG VENT / PERF VQ PULMONARY VENTILATION & PERFUSION IMAGING Mike Presley MD [address] [place], [place] [id number] Molecular & Functional Imaging [address] [place] [address] Referral ID Status Reason Start Date Expiration Date Visits Requested Visits Authorized [id number] Pending Review Auto-Generat ed Referral 06/27/2023 07/26/2024 1 1 * Outpatient Procedure (Routine) - Pending Review Specialty Diagnoses / Procedures Referred By Contac t Referred To Contact [facility] Diagnoses Interstitial pulmonary disease (HCC) Procedures LUNG VOLUMES Mike Presley MD [address] [place], [place] [address] [facility] [address] [place] [address] Referral ID Status Reason Start Date Expiration Date Visits Requested Visits Authorized [id number] Pending Review Auto-Generat ed Referral 06/27/2023 07/26/2024 1 1 * Outpatient Procedure (Routine) - Authorized Specialty Diagnoses / Procedures Referred By Contac t Referred To Contact [facility] Diagnoses Interstitial pulmonary disease (HCC) Procedures LUNG DIFFUSION CAPACITY (DLCO) DIFFUSING CAPACITY Mike Presley MD [address] [place] [address] [facility] [address] [place] [address] Referral ID Status Reason Start Date Expiration Date Visits Requested Visits Authorized [id number] Authorized Auto-Generat ed Referral 06/27/2023 07/26/2024 1 1 * MRI/CT (Routine) - Authorized Specialty Diagnoses / Procedures Referred By Contac t Referred To Contact CT IMAGING Diagnoses Interstitial pulmonary disease (HCC) Procedures CT CHEST WO IVCON DIAGNOSTIC COMPUTED TOMOGRAPHY THORAX W/O CNTRST Mike Presley MD [address] [place], [place] [address] Ct Imaging Referral ID Status Reason Start Date Expiration Date Visits Requested Visits Authorized [id number] Authorized Auto-Generat ed Referral 06/27/2023 07/26/2024 1 1 [facility] for referral (narrative)* Outpatient Procedure (Routine) - Authorized Specialty Diagnoses / Procedures Referred By Kelly t Referred To Contact [facility] Diagnoses ILD (interstitial lung disease) (HCC) Procedures SPIROMETRY BASELINE ONLY SPMTRY W/VC EXPIRATORY BERNIE W/WO MXML VOL VNTJ Mike Presley MD [address] [place], [place] [phone] [facility] [address] [place] [address] Referral ID Status Reason Start Date Expiration Date Visits Requested Visits Authorized [id number] Authorized Auto-Generat ed Referral 09/24/2024 1 1 [facility] for referral (narrative)No reason for referral information [facility] Phone: Reason for visit Narrative* Outpatient Procedure (Routine) - Closed Specialty Diagnoses / Procedures Referred By Contac t Referred To Contact [facility] Diagnoses Rectal bleeding Procedures COLONOSCOPY SCREENING COLONOSCOPY FLX DX W/COLLJ SPEC WHEN PFRMD Ernesto Chacko APRN.AIRCRAFT INSPECTION RECORD CLERK [address] [place] [address] [facility] [address] [place] [id number] Referral ID Status Reason Start Date Expiration Date V isits Requested Visits Authorized [id number] Closed Auto-Generate d Referral 08/07/2022 08/07/2023 1 1 [facility] Neurology (Routine) - Pending Review Specialty Diagnoses / Procedures Referred By Contac t Referred To Contact Diagnoses Lumbar radiculopathy Procedures EMG & nerve conduction Edward Barros MD [address] [facility], [address] [place], [place] [id number] Phone: tel: fax: Referral ID Status Reason Start Date Expiration Date V isits Requested Visits Authorized [id number] Pending Review 12/10/2024 12/10/2025 1 1 [facility] Work Phone: Rebzfk for visit Narrative* Imaging (Routine) - Authorized Specialty Diagnoses / Procedures Referred By Contac t Referred To Contact Radiology Diagnoses Left forearm pain Procedures XR forearm left 2 views Edward Barros MD [address] [facility], [address] [place] [address] Phone: tel: fax: Referral ID Status Reason Start Date Expiration Date Visits Requested Visits Authorized [id number] Authorized Perform Procedure 01/17/2025 01/17/2026 1 1 [facility] Work Phone: Renhfi for visit Narrative* Diagnostic Procedure Only (Routine) - Closed Specialty Diagnoses / Procedures Referred By Contac t Referred To Contact XR IMAGING Diagnoses Pain in right hip Procedures XR PELVIS 1V AP RADIOLOGIC EXAMINATION PELVIS 1/[place] [address] [place] [address] Phone: tel: fax: XR IMAGING [facility]95 Referral ID Status Reason Start Date Expiration Date V isits Requested Visits Authorized [id number] Closed Auto-Generate d Referral 02/21/2025 03/23/2026 1 1 [facility]* Diagnostic Procedure Only (Routine) - Closed Specialty Diagnoses / Procedures Referred By Contac t Referred To Contact XR IMAGING Diagnoses Mechanical loosening of internal right hip prosthetic joint, subsequent encounter Procedures XR PELVIS 1V AP RADIOLOGIC EXAMINATION PELVIS 1/[place] [address] [place] [address] Phone: tel: fax: XR IMAGING [facility]95 Referral ID Status Reason Start Date Expiration Date V isits Requested Visits Authorized [id number] Closed Auto-Generate d Referral 06/07/2025 07/07/2026 1 1 [facility] Summary Purpose Family History No Family History Records Found Relationship Condition Age at Onset Recorded Date/T sebastian mother Disorder of thyroid Unknown Dementia Unknown grandparent Disorder of thyroid Unknown father Osteoarthritis Unknown Advance Directives No Advanced Directives Records FoundDocuments on File Type Date 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 Advance Directive(s) 08/12/2019 10:47 AM Advance Directive(s) 07/28/2019 9:20 AM Documents on File Type Date Recorded 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 HIGH MDM 60-74 MINUTES Ernesto Chacko, BETTY.AIRCRAFT INSPECTION RECORD CLERK [address] [place] [address] Referral ID Status Reason Start Date Expiration Date Visits Requested Visits Authorized [id number] Authorized PCP Requested Referral 08/07/2022 08/07/2023 1 1 Specialty Diagnoses / Procedures Referred By Contac t Referred To Contact [facility] Diagnoses Rectal bleeding Procedures COLONOSCOPY SCREENING COLONOSCOPY FLX DX W/COLLJ SPEC WHEN PFRMD Ernesto Chacko APRN.AIRCRAFT INSPECTION RECORD CLERK [address] [place] [address] [facility] [address] [place] [address] Referral ID Status Reason Start Date Expiration Date Visits Requested Visits Authorized [id number] Pending Review Auto-Generat ed Referral 08/07/2022 08/07/2023 1 1 Specialty Diagnoses / Procedures Referred By Contac t Referred To Contact CT IMAGING Diagnoses Interstitial pulmonary disease (HCC) Procedures CT CHEST WO IVCON DIAGNOSTIC COMPUTED TOMOGRAPHY THORAX W/O CNTRST Mike Presley MD [address] [id number] [facility] [place] [address] Referral ID Status Reason Start Date Expiration Date V isits Requested Visits Authorized [id number] Closed Auto-Generate d Referral 06/27/2023 07/26/2024 1 1 Reason Iron deficiency anem ia Diagnosis 1 Iron deficiency anem ia due to chronic blood loss (D50.0) Referral Organization [facility] selma Referring Provider First Name Roland Referring Provider Last Name Maggie Referring Provider Specialty Internal Me dicine Referred Organization [facility] Referred Provider NAJMA BARBOUR Referred Address [address] [place], [place],[address] Referred Provider Specialty Hematology Referral Priority Routine General Notes Mrs. Waddell is being r eferred for symptomatic iron deficiency anemia. 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 She has completed endoscopic treatment for her chronic bleeding and has received 2 units of PRBC while at [facility] for her procedure. I am referring Mrs. Waddell for IV Fe therapy Clinical Notes Include latest CBC, Fe, TIBC, Ferritin, percent iron saturation Specialty Diagnoses / Procedures Referred By Kelly t Referred To Contact CT IMAGING Diagnoses Malignant neoplasm of endometrium (HCC) Procedures CT CHEST W IVCON CAT SCAN OF CHEST CONTRAST Ernesto Chacko, BETTY.AIRCRAFT INSPECTION RECORD CLERK [address] [place] [address] [place] [address] Referral ID Status Reason Start Date Expiration Date V isits Requested Visits Authorized [id number] Closed Auto-Generate d Referral 11/28/2021 01/12/2022 1 1 Specialty Diagnoses / Procedures Referred By Kelly alberts Referred To Contact CT IMAGING Diagnoses Malignant neoplasm of endometrium (HCC) Procedures CT ABD/PEL W IVCON CT ABD & PELVIS W/CONTRAST Ernesto Chacko, BETTY.AIRCRAFT INSPECTION RECORD CLERK [address] [place] [address] Ct Imaging [facility]95 Referral ID Status Reason Start Date Expiration Date V isits Requested Visits Authorized [id number] Closed Auto-Generate d Referral 11/28/2021 01/12/2022 1 [...] cough, ear pain, chest congestion 2024 9:10am Amb Documentation January 03, 2025 9:33am [facility]: fall/ Check Up January 05, 2025 10:59am Reason for Visit Admit Date Hypertension November 26, 2024 9 :10am Acute bronchitis due to other specified organisms November 26, 2024 9:10am Endometrial cancer January 05, 2025 10:59am SHERIF (generalized anxiety disorder) [facility] [place] 2024 10:59am Graves disease January 05, 2025 10:59am Hypertension January 05, 2025 10:59am Screening mammogram for breast cancer [facility] 2024 10:59am Wellness examination January 05, 2025 10:59am Chief Complaint Admit Date Amb Documentation January 03, 2025 9:33am TBH: fall/ Check Up January 05, 2025 10:59am Unknown March 16, 2025 11: 00am Reason for Visit Admit Date Endometrial cancer January 05, 2025 10:59am SHERIF (generalized anxiety disorder) [facility] 2024 10:59am Graves disease January 05, 2025 10:59am Hypertension January 05, 2025 10:59am Iron deficiency anemia January 05 10:59am Screening mammogram for breast cancer [facility] 2024 10:59am Wellness examination January 05, 2025 10:59am Chief Complaint Admit Date Unknown March 16, 2025 11: 00am medication discussion May 12, 2025 9: 29am Reason for Visit Admit Date Endometrial cancer May 12, 2025 9:29 am SHERIF (generalized anxiety disorder) May 12, 2025 9:29am Graves disease May 12, 2025 9:29 am Hypertension May 12, 2025 9:29 am Iron deficiency anemia May 12, 2025 9 :29am Additional Source Comments INFORMATION SOURCE (unrecogn ized section and content) DATE CREATED AUTHOR 11/29/2019 [facility] DATE CREATED AUTHOR AUTHOR'S ORGANIZ ATION 11/23/2021 Nancy blanchard DATE CREATED AUTHOR AUTHOR'S ORGANIZ ATION 03/28/2023 [facility] DATE CREATED AUTHOR AUTHOR'S ORGANIZ ATION 12/05/2024 [facility] DATE CREATED AUTHOR AUTHOR'S ORGANIZ ATION 01/17/2025 [facility] DATE CREATED AUTHOR AUTHOR'S ORGANIZ ATION 01/22/2025 [facility] DATE CREATED AUTHOR AUTHOR'S ORGANIZ ATION 04/05/2025 [place] [facility] DATE CREATED AUTHOR AUTHOR'S ORGANIZ ATION 04/23/2025 [facility] DATE CREATED AUTHOR AUTHOR'S ORGANIZ ATION 06/09/2025 [facility] DATE CREATED AUTHOR AUTHOR'S ORGANIZ ATION 06/09/2025 [facility] Reason for Visit (unrecogniz ed section [...] NEW HIGH MDM 60-74 MINUTES Ernesto Chacko APRN.AIRCRAFT INSPECTION RECORD CLERK [address] [place] [phone] Referral ID Status Reason Start Date Expiration Date V isits Requested Visits Authorized [id number] Closed PCP Requested Referral 08/07/2022 08/07/2023 1 1 Reason Comments Spirometry Specialty Diagnoses / Procedures Referred By Contac t Referred To Contact [facility] Diagnoses Dyspnea, unspecified type Procedures SPIROMETRY WITH DILATOR IF OBSTRUCTED BRNCDILAT RSPSE SPMTRY PRE&POST-BRNCDILAT ADMN Davis Page MD [address] [place] [id number] [facility] [address] [place] [address] Referral ID Status Reason Start Date Expiration Date V isits Requested Visits Authorized [id number] Closed Auto-Generate d Referral 05/23/2023 06/21/2024 1 1 Reason Comments New Reason Comments New Radiation proctitis Specialty Diagnoses / Procedures Referred By Contac t Referred To Contact Colon and Rectal Surgery Diagnoses Radiation proctitis Procedures CONSULT TO COLO-RECTAL SURGERY OFFICE/OUTPATIENT NEW HIGH MDM 60-74 MINUTES Shelli Villarreal, BETTY.AIRCRAFT INSPECTION RECORD CLERK [address] [place] [address] [place] DO [address] [place] [address] Referral ID Status Reason Start Date Expiration Date V isits Requested Visits Authorized [id number] Closed PCP Requested Referral 05/16/2023 05/15/2024 1 1 Reason Comments Patient Update Specialty Diagnoses / Procedures Referred By Contac t Referred To Contact [facility] Diagnoses ILD (interstitial lung disease) (HCC) Procedures SPIROMETRY BASELINE ONLY SPMTRY W/VC EXPIRATORY BERNIE W/WO MXML VOL VNTJ Mike Presley MD [address] [place] [address] [facility] [address] [place] [address] Referral ID Status Reason Start Date Expiration Date V isits Requested Visits Authorized [id number] Closed Auto-Generate d Referral 08/26/2023 09/24/2024 1 1 Specialty Diagnoses / Procedures Referred By Contac t Referred To Contact [facility] Diagnoses Interstitial pulmonary disease (HCC) Procedures LUNG DIFFUSION CAPACITY (DLCO) DIFFUSING CAPACITY Mike Presley MD [address] [place], [place] [phone] [facility] [address] [place] [address] Referral ID Status Reason Start Date Expiration Date V isits Requested Visits Authorized [id number] Closed Auto-Generate d Referral 06/27/2023 07/26/2024 1 1 Reason Comments Radio Gen A21 Reason Comments Pre-Op Exam Specialty Diagnoses / Procedures Referred By Contac t Referred To Contact CT IMAGING Diagnoses Interstitial pulmonary disease (HCC) Procedures CT CHEST WO IVCON DIAGNOSTIC COMPUTED TOMOGRAPHY THORAX W/O CNTRST Mike Presley MD [address] [place] [address] [address] [address] [facility] [place] [address] Referral ID Status Reason Start Date Expiration Date V isits Requested Visits Authorized [id number] Closed Auto-Generate d Referral 06/27/2023 07/26/2024 1 1 Reason Comments Radiology NM Specialty Diagnoses / Procedures Referred By Contac t Referred To Contact CT IMAGING Diagnoses Malignant neoplasm of endometrium (HCC) Procedures CT CHEST W IVCON CAT SCAN OF CHEST CONTRAST Ernesto Chacko APRN.AIRCRAFT INSPECTION RECORD CLERK [address] [place] [id number] Ct Imaging [facility]95 Referral ID Status Reason Start Date Expiration Date V isits Requested Visits Authorized [id number] Closed Auto-Generate d Referral 11/28/2021 01/12/2022 1 1 Reason Comments Skin Check Reason Comments Post-op Reason Comments Post-op Reason Comments New Patient Visit RIGHT HIPX-RAYS TODA Y Pain RIGHT HIPX-RAYS TODA Y Reason Comments Pain RIGHT HIP New Patient Visit RIGHT HIP Results EMG results, saw RB 01/13/2025 Reason Comments New Reason Comments Pre-Op Visit Scheduled Active and Recently Administ ered Medications [...] or prosecute any alcohol or drug abuse patient.[facility] Center[facility] the event this information is protected by the Federal Confidentiality of Alcohol and Drug Abuse Patient Records regulations: The Federal rules restrict any use of the information to criminally investigate or prosecute any alcohol or drug abuse patient.[facility] CenterIn the event this information is protected by the Federal Confidentiality of Alcohol and Drug Abuse Patient Records regulations: The Federal rules restrict any use of the information to criminally investigate or prosecute any alcohol or drug abuse patient.[facility] CenterIn the event this information is protected by the Federal Confidentiality of Alcohol and Drug Abuse Patient Records regulations: The Federal rules restrict any use of the information to criminally investigate or prosecute any alcohol or drug abuse patient.[facility] CenterIn the event this information is protected by the Federal Confidentiality of Alcohol and Drug Abuse Patient Records regulations: The Federal rules restrict any use of the information to criminally investigate or prosecute any alcohol or drug abuse patient.[facility] CenterIn the event this information is protected by the Federal Confidentiality of Alcohol and Drug Abuse Patient Records regulations: The Federal rules restrict any use of the information to criminally investigate or prosecute any alcohol or drug abuse patient.[facility] CenterIn the event this information is protected by the Federal Confidentiality of Alcohol and Drug Abuse Patient Records regulations: The Federal rules restrict any use of the information to criminally investigate or prosecute any alcohol or drug abuse patient.[facility] CenterIn the event this information is protected by the Federal Confidentiality of Alcohol and Drug Abuse Patient Records regulations: The Federal rules restrict any use of the information to criminally investigate or prosecute any alcohol or drug abuse patient.[facility] CenterIn the event this information is protected by the Federal Confidentiality of Alcohol and Drug Abuse Patient Records regulations: The Federal rules restrict any use of the information to criminally investigate or prosecute any alcohol or drug abuse patient.[facility] CenterIn the event this information is protected by the Federal Confidentiality of Alcohol and Drug Abuse Patient Records regulations: The Federal rules restrict any use of the information to criminally investigate or prosecute any alcohol or drug abuse patient.[facility] CenterIn the event this information is protected by the Federal Confidentiality of Alcohol and Drug Abuse Patient Records regulations: The Federal rules restrict any use of the information to criminally investigate or prosecute any alcohol or drug abuse patient.[facility] CenterIn the event this information is protected by the Federal Confidentiality of Alcohol and Drug Abuse Patient Records regulations: The Federal rules restrict any use of the information to criminally investigate or prosecute any alcohol or drug abuse patient.[facility] CenterIn the event this information is protected by the Federal Confidentiality of Alcohol and Drug Abuse Patient Records regulations: The Federal rules restrict any use of the information to criminally investigate or prosecute any alcohol or drug abuse patient.[facility] CenterIn the event this information is protected by the Federal Confidentiality of Alcohol and Drug Abuse Patient Records regulations: The Federal rules restrict any use of the information to criminally investigate or prosecute any alcohol or drug abuse patient.[facility] CenterIn the event this information is protected by the Federal Confidentiality of Alcohol and Drug Abuse Patient Records regulations: The Federal rules restrict any use of the information to criminally investigate or prosecute any alcohol or drug abuse patient.[facility] CenterIn the event this information is protected by the Federal Confidentiality of Alcohol and Drug Abuse Patient Records regulations: The Federal rules restrict any use of the information to criminally investigate or prosecute any alcohol or drug abuse patient.[facility] CenterIn the event this information is protected by the Federal Confidentiality of Alcohol and Drug Abuse Patient Records regulations: The Federal rules restrict any use of the information to criminally investigate or prosecute any alcohol or drug abuse patient.[facility] CenterIn the event this information is protected by the Federal Confidentiality of Alcohol and Drug Abuse Patient Records regulations: The Federal rules restrict any use of the information to criminally investigate or prosecute any alcohol or drug abuse patient.[facility] CenterIn the event this information is protected by the Federal Confidentiality of Alcohol and Drug Abuse Patient Records regulations: The Federal rules restrict any use of the information to criminally investigate or prosecute any alcohol or drug abuse patient.[facility] CenterIn the event this information is protected by the Federal Confidentiality of Alcohol and Drug Abuse Patient Records regulations: The Federal rules restrict any use of the information to criminally investigate or prosecute any alcohol or drug abuse patient.[facility] CenterIn the event this information is protected by the Federal Confidentiality of Alcohol and Drug Abuse Patient Records regulations: The Federal rules restrict any use of the information to criminally investigate or prosecute any alcohol or drug abuse patient.[facility] CenterIn the event this information is protected by the Federal Confidentiality of Alcohol and Drug Abuse Patient Records regulations: The Federal rules restrict any use of the information to criminally investigate or prosecute any alcohol or drug abuse patient.[facility] CenterIn the event this information is protected by the Federal Confidentiality of Alcohol and Drug Abuse Patient Records regulations: The Federal rules restrict any use of the information to criminally investigate or prosecute any alcohol or drug abuse patient.[facility] Center[facility] the event this information is protected by the Federal Confidentiality of Alcohol and Drug Abuse Patient Records regulations: The Federal rules restrict any use of the information to criminally investigate or prosecute any alcohol or drug abuse patient.[facility] Center[facility] the event this information is protected by the Federal Confidentiality of Alcohol and Drug Abuse Patient Records regulations: The Federal rules restrict any use of the information to criminally investigate or prosecute any alcohol or drug abuse patient.[facility] Center[facility] the event this information is protected by the Federal Confidentiality of Alcohol and Drug Abuse Patient Records regulations: The Federal rules restrict any use of the information to criminally investigate or prosecute any alcohol or drug abuse patient.[facility] CenterIn the event this information is protected by the Federal Confidentiality of Alcohol and Drug Abuse Patient Records regulations: The Federal rules restrict any use of the information to criminally investigate or prosecute any alcohol or drug abuse patient.[facility] Center[facility] the event this information is protected by the Federal Confidentiality of Alcohol and Drug Abuse Patient Records regulations: The Federal rules restrict any use of the information to criminally investigate or prosecute any alcohol or drug abuse patient.[facility] CenterIn the event this information is protected by the Federal Confidentiality of Alcohol and Drug Abuse Patient Records regulations: The Federal rules restrict any use of the information to criminally investigate or prosecute any alcohol or drug abuse patient.[facility] CenterIn the event this information is protected by the Federal Confidentiality of Alcohol and Drug Abuse Patient Records regulations: The Federal rules restrict any use of the information to criminally investigate or prosecute any alcohol or drug abuse patient.[facility] CenterIn the event this information is protected by the Federal Confidentiality of Alcohol and Drug Abuse Patient Records regulations: The Federal rules restrict any use of the information to criminally investigate or prosecute any alcohol or drug abuse patient.[facility] CenterIn the event this information is protected by the Federal Confidentiality of Alcohol and Drug Abuse Patient Records regulations: The Federal rules restrict any use of the information to criminally investigate or prosecute any alcohol or drug abuse patient.[facility] CenterIn the event this information is protected by the Federal Confidentiality of Alcohol and Drug Abuse Patient Records regulations: The Federal rules restrict any use of the information to criminally investigate or prosecute any alcohol or drug abuse patient.[facility] Care Teams (unrecognized sec tion and content) Deputy Clerk Of Court Relationship Specialty Start Date End Date Roland Serrano DO PCP - General 09/21/07 Kizzy Galloway RN Specialty Electrical Manufacturing Engineer Radiation Oncology 06/12/[address] Relationship Specialty Start Date End Date Roland Serrano DO PCP - General 09/21/07 [place] [address] [place] [address] Specialty Electrical Manufacturing Engineer Radiation Oncology 06/12/[address] Relationship Specialty Start Date End Date Roland Serrano DO PCP - General 09/21/07 [place] [address] [place] [address] Specialty Electrical Manufacturing Engineer Radiation Oncology 06/12/[address] Relationship Specialty Start Date End Date Roland Serrano DO [facility] General 09/21/07 [place] [address] [place] [address] Specialty Electrical Manufacturing Engineer Radiation Oncology 06/12/[address] Relationship Specialty Start Date End Date Roland Serrano DO PCP - General 09/21/07 Kizzy Galloway [place] [id number] [place] [address] Specialty Electrical Manufacturing Engineer Radiation Oncology 06/12/[address] Relationship Specialty Start Date End Date Roland Serrano DO PCP - General 09/21/07 Kizzy Galloway RN [id number] [place] [address] Specialty Electrical Manufacturing Engineer Radiation Oncology 06/12/[address] Relationship Specialty Start Date End Date Roland Serrano DO PCP - General 09/21/07 Kizzy Galloway RN [address] [place] [address] Specialty Electrical Manufacturing Engineer Radiation Oncology 06/12/[address] Relationship Specialty Start Date End Date Roland Serrano DO PCP - General 09/21/07 Kizzy Galloway RN [address] [place] [address] Specialty Electrical Manufacturing Engineer Radiation Oncology 06/12/[address] Relationship Specialty Start Date End Date Roland Serrano DO PCP - General 09/21/07 [place] [address] [place] [address] Specialty Electrical Manufacturing Engineer Radiation Oncology 06/12/[address] Relationship Specialty Start Date End Date Roland Serrano DO PCP - General 09/21/07 Kizzy Galloway RN [id number] [place] [address] Specialty Electrical Manufacturing Engineer Radiation Oncology 06/12/[address] Relationship Specialty Start Date End Date Roland Serrano DO PCP - General 09/21/07 [place] [address] [place] [address] Specialty Electrical Manufacturing Engineer Radiation Oncology 06/12/[address] Relationship Specialty Start Date End Date Roland Serrano DO PCP - General 09/21/07 Kizzy Galloway RN [address] [place] [address] Specialty Electrical Manufacturing Engineer Radiation Oncology 06/12/[address] Relationship Specialty Start Date End Date Roland Serrano DO PCP - General 09/21/07 Kizzy Galloway RN [address] [place] [address] Specialty Electrical Manufacturing Engineer Radiation Oncology 06/12/[address] Relationship Specialty Start Date End Date Roland Serrano DO PCP - General 09/21/07 Kizzy Galloway RN [address] [place] [address] Specialty Electrical Manufacturing Engineer Radiation Oncology 06/12/[address] Relationship Specialty Start Date End Date Roland Serrano DO PCP - General 09/21/07 Kizzy Galloway RN [address] [place] [address] Specialty Electrical Manufacturing Engineer Radiation Oncology 06/12/[address] Relationship Specialty Start Date End Date Roland Serrano DO PCP - General 09/21/07 [place] [address] [place], [place] [id number] Specialty Electrical Manufacturing Engineer Radiation Oncology 06/12/[address] Relationship Specialty Start Date End Date Roland Serrano DO PCP - General 09/21/07 Kizzy Galloway RN [id number] [place] [address] Specialty Electrical Manufacturing Engineer Radiation Oncology 06/12/[address] Relationship Specialty Start Date End Date Roland Serrano DO PCP - General 09/21/07 [place] [address] [place] [address] Specialty Electrical Manufacturing Engineer Radiation Oncology 06/12/[address] Relationship Specialty Start Date End Date Roland Serrano DO PCP - General 09/21/07 [place] [address] [place] [address] Specialty Electrical Manufacturing Engineer Radiation Oncology 06/12/21 Team Status: Active Member [...] May 04, 2024 Dee Dee Espana APRN ACCIDENT INVESTIGATOR-C Attending Provider Act luca Start: May 04, [...] June 29, 2024 End: June 29, [address] Relationship Specialty Start Date End Date Roland Serrano DO PCP - General 09/21/07 [place] [address] [place] [address] Specialty Electrical Manufacturing Engineer Radiation Oncology 06/12/[address] Relationship Specialty Start Date End Date Roland Serrano DO PCP - General 09/21/07 Kizzy Galloway RN [id number] [place] [address] Specialty Electrical Manufacturing Engineer Radiation Oncology 06/12/[address] Relationship Specialty Start Date End Date Roland Serrano DO PCP - General 09/21/07 [place] [address] [place] [address] Specialty Electrical Manufacturing Engineer Radiation Oncology 06/12/21 Kathryn Painter, RN Specialty Electrical Manufacturing Engineer Arabic Professor Oncology 08/11/[address] Relationship Specialty Start Date End Date Roland Serrano DO PCP - General 09/21/07 [place] [address] [place] [address] Specialty Electrical Manufacturing Engineer Radiation Oncology 06/12/21 Kathryn Painter, RN Specialty Electrical Manufacturing Engineer Arabic Professor Oncology 08/11/[address] Relationship Specialty Start Date End Date Roland Serrano MD [address] [place] [phone] PCP - General Internal Medicine 02/13/[address] Relationship Specialty Start Date End Date Roland Serrano MD [address] [facility] [place] [phone] PCP - General Internal Medicine 02/13/[address] Relationship Specialty Start Date End Date Roland Serrano MD [address] [facility] [place] [address] PCP - General Internal Medicine 02/13/[address] Relationship Specialty Start Date End Date Roland Serrano MD [address] [facility] [place] [phone] PCP - General Internal Medicine 02/13/24 Team [...] November 26, 2024 End: November 26, [address] Relationship Specialty Start Date End Date oRland Serrano MD [address] [facility] [place] [phone] PCP - General Internal Medicine 02/13/[address] Relationship Specialty Start Date End Date Roland Serrano MD [address] [facility] [place] [address] PCP - General Internal Medicine 02/13/[address] Relationship Specialty Start Date End Date Roland Serrano DO [address] [place] [address] PCP - General Internal Medicine 12/10/24 Team [...] January 05, 2025 End: January 05, [address] Relationship Specialty Start Date End Date Roland Serrano DO [address] [place] [address] PCP - General Internal Medicine 12/10/[address] Relationship Specialty Start Date End Date Roland Serrano DO [address] [place] [address] PCP - General Internal Medicine 12/10/[address] Relationship Specialty Start Date End Date Roland Serrano DO [address] [place] [address] PCP - General Internal Medicine 12/10/[address] Relationship Specialty Start Date End Date Roland Serrano DO [address] [place] [address] PCP - General Internal Medicine 12/10/[address] Relationship Specialty Start Date End Date Roland Serrano DO PCP - General 09/21/07 Kizzy Galloway, NIKITA [address] [place] [address] Specialty Electrical Manufacturing Engineer Radiation Oncology 06/12/21 Kathryn Painter RN Specialty Electrical Manufacturing Engineer Arabic Professor Oncology 08/11/[address] Relationship Specialty Start Date End Date Roland Serrano DO PCP - General 09/21/07 [place] [address] [place] [id number] Specialty Electrical Manufacturing Engineer Radiation Oncology 06/12/21 Kathryn Painter RN Specialty Electrical Manufacturing Engineer Arabic Professor Oncology 08/11/24 Team Status: Active Member Role Status Dates Roland Serrano , DO Primary Care Provide r, Attending Provider Active Start: February 21, 2025 Team Status: Active Member Role Status Dates Roland Serrano , DO Primary Care Provide r, Attending Provider Active Start: February 28, 2025 Team Status: Inactive Member Role Status Dates [place] MD FACS Attending Provider Active Start: March 16, 2025 End: March 16, 2025 Team Status: Active Member Role Status Dates Roland Serrano , Primary Care Provider Active Start: February 21, 2025 Roland Serrano , DO Attending Provider Active Sta rt: February 21, 2025 Team Status: Active Member Role Status Dates Roland Serrano , Primary Care Provider Active Start: February 28, 2025 Roland Serrano , Attending Provider Active Sta rt: February 28, 2025 Team Status: Active Member Role Status Dates Roland Serrano , Primary Care Provider Active Start: April 28, 2025 Roland Serrano , DO Attending Provider Active Sta rt: April 28, 2025 Team Status: Inactive Member Role Status Dates Roland Serrano , Primary Care Provider Active Start: May 12, 2025 End: May 12, 2025 Roland Serrano , DO Attending Provider Active Sta rt: May 12, 2025 End: May 12, [address] Relationship Specialty Start Date End Date Roland Serrano DO PCP - General 09/21/07 [place] [address] [place] [address] Specialty Electrical Manufacturing Engineer Radiation Oncology 06/12/21 Kathryn Painter, RN Specialty Electrical Manufacturing Engineer Arabic Professor Oncology 08/11/[address] Relationship Specialty Start Date End Date Roland Serrano DO PCP - General 09/21/07 [place] [address] [place] [address] Specialty Electrical Manufacturing Engineer Radiation Oncology 06/12/21 Kathryn Painter, RN Specialty Electrical Manufacturing Engineer Arabic Professor Oncology 08/11/24 Goals (unrecognized section and content) [...] BE BASED ON THE PRIMARY CLINICAL RECORDS. [facility]. provides no warranty or guarantee of the accuracy or completeness of information in this document.
--- NOTE | 2025-06-09 07:00 | CA_ITS ---
Patient Name: JOSEPHINE STOVER MR#: [id number] : 1960 Exam Date: 06/09/2025 Ordering Doctor: DR DOMONIQUE SERRANO D.O. ECHOCARDIOGRAM REPORT PROCEDURE: CA ECHO DOPPLER COMPLETE INDICATIONS: Pulmonary hypertension, Dilated cardiomyopathy COMPARISON: None. DESCRIPTION: COMPLETE ECHOCARDIOGRAM Real-time transthoracic echocardiography with 2D, M-mode, spectral and color flow Doppler performed. QUALITY: Technical quality was good. LEFT VENTRICLE: Normal chamber size. Borderline left ventricular hypertrophy. Global left ventricular systolic function is normal. LV EF: Estimated left ventricular ejection fraction is 55%. DIASTOLIC: Normal diastolic function. ATRIAL SEPTUM: LEFT ATRIUM: Normal chamber size. RIGHT ATRIUM: Normal chamber size. RIGHT VENTRICLE: Normal chamber size. Normal right ventricular systolic function. TRICUSPID VALVE: Normal mobility and thickness. No stenosis with mild regurgitation. No evidence of pulmonary hypertension. RVSP 26 mmHg. MITRAL VALVE: Normal mobility and thickness. No evidence of mitral valve stenosis. There is no mitral annular calcification. Trivial mitral regurgitation. AORTIC VALVE: Normal trileaflet appearance. No visible sclerosis. Normal leaflet mobility. No evidence of aortic valve stenosis. No aortic regurgitation. AORTIC ROOT: Normal diameter and appearance, measuring 3.3 cm. The ascending aorta is normal in size measuring 3.1 cm. PULMONIC VALVE: Normal thickness and mobility. No stenosis. Trivial regurgitation. PERICARDIUM: No evidence of pericardial effusion. IVC: Collapses with inspiration. Normal size. PLEURA: CONCLUSION: 1. Normal ventricular size and systolic function. Estimated LVEF is 55%. 2. Normal diastolic function. 3. No significant valvular dysfunction. 4. Normal right-sided pressures. Adult Echocardiography Procedure Report Left Ventricle LVEDD (3.7 - 5.6 cm): 3.86 cm LVESD (2.2 - 4.0 cm): 2.75 cm LVIVS thickness (0.6 - 1.2 cm): 1.08 cm LVPW thickness (0.5 - 1.0 cm): 1.00 cm e': 0.06 m/s E - e': 5.83 LVOT Max Gradient: 2.00 mm[Hg] LVOT Area (cm2): 0.71 m/s Peak Velocity (LVOT): 0.71 m/s Mean Velocity (LVOT): 0.50 m/s LVOT Diameter 1.96 cm Left Ventricular Ejection Fraction: 57.88 % Left Atrium LA Volume Index (2D A2C): 16.27 ml/m2 Left Atrium Systolic Dimension: 2.83 cm Mitral Valve MV E to A Ratio: 0.69 Mitral Valve A-Wave Peak Velocity: 0.55 m/s Mitral Valve E-Wave Peak Velocity: 0.38 m/s Right Ventricle RV Internal Diastolic Dimension: 3.44 cm Aorta AO Root Diam: 3.26 cm Ascending Ao Diam: 3.14 cm Aortic Valve AoV Area (Peak Filiberto): 2.29 cm2, 2.29 cm2 AoV Area (VTI): 2.25 cm2, 2.29 cm2 Peak Velocity(Antegrade Flow): 0.94 m/s, 0.94 m/s Peak Gradient(Antegrade Flow): 3.50 mm[Hg], 3.50 mm[Hg] Mean Velocity(Antegrade Flow): 0.65 m/s, 0.66 m/s Mean Gradient(Antegrade Flow): 1.90 mm[Hg], 2.01 mm[Hg] Velocity Time Integral: 19.21 cm, 19.87 cm Tricuspid Valve Peak Velocity (Regurgitant Flow): 2.25 m/s, 1.89 m/s, 2.56 m/s, 2.42 m/s Pulmonic Valve Mean Gradient: 1.33 mm[Hg], 1.93 mm[Hg] Mean Velocity: 0.57 m/s, 0.66 m/s Peak Velocity: 0.80 m/s Peak Gradient: 1.76 mm[Hg], 3.47 mm[Hg] Right Atrium Right Atrium Systolic Pressure: 51.37 ml, 51.37 ml Dictated by: Dylan Nguyen M.D. on 06/09/2025 at 18:17 Approved by: Dylan Nguyen M.D. on 06/09/2025 at 18:21
== END 2025-06-09 06:57 | disposition home or self-care (01) ==
LOC: CARD 06:56
PROVIDERS: PCP Internal Medicine; Visit Provider Internal Medicine
DX: I27.20 Pulmonary hypertension, unspecified (principal); I42.0 Dilated cardiomyopathy; E04.1 Nontoxic single thyroid nodule
CPT/HCPCS: 76536; 93306